=== PATIENT | male | born 1975 | race Caucasian/White ===

== ENCOUNTER 2020-03-17 03:25 | Emergency (ER) | payer OTHER, SELFPAY ==
[2020-03-17 03:34] VITALS: BP 120/76; BP 146/85; PULSE 126; PULSE 140; RESP 12; TEMP 36.9; O2SAT 95; O2SAT 98; BMI 33.4
--- NOTE | 2020-03-17 03:54 | ED_ITS ---
HPI - Overdose General Chief Complaint: Overdose Stated Complaint: overdose Time Seen by Provider: 03/17/20 03:53 Source: patient and EMS Mode of arrival: EMS History of Present Illness HPI Narrative: this is a 45-year-old male who is brought in by EMS and reportedly was found unresponsive with bystander administration of Narcan and rapid return to wakefulness without needing additional respiratory support. Patient currently denies any use other than cocaine and having drink a lot of alcohol throughout the day. He readily admits that he passes out because I am a drunk . Further reports by EMS states that patient had drug paraphernalia surrounding him. complaint: accidental overdose Related Data Allergies Allergy/AdvReac Type Severity Reaction Status Date / Time acetaminophen [From TYLENOL] Allergy Intermediate ULCERS Unverified 02/29/20 16:07 ibuprofen [From MOTRIN] Allergy Intermediate ULCER Unverified 02/29/20 16:07 aspirin [ASA] Allergy Unknown VOMITING Unverified 02/29/20 16:07 BLOOD Review of Systems Review of Systems: pertinent positives and negatives as stated in HPI 10 point review of systems is otherwise negative. [facility] Past Medical History Source: nursing notes reviewed Medical History Heart murmur Surgical History S/P TIPS (transjugular intrahepatic portosystemic shunt) Social History Social History Alcohol intake: current Alcohol intake frequency: 3 or more drinks per day Smoking Status: Never smoker Smoked in Last 30 Days: No Use of substances other than those prescribed or required for medical reasons: Yes Substance Use Type: Crack/Cocaine and Marijuana Advance Directives: No Advance Directives Information Provided: No Physical Exam Vital Signs and I&O and Narrative: Vital Signs and I&O: Vital Signs Temp 98.5 F 03/17/20 03:34 Pulse 124 H 03/17/20 03:58 Resp 12 03/17/20 03:34 BP 146/85 H 03/17/20 03:34 Pulse Ox 95 03/17/20 03:34 Intake & Output 03/16/20 03/16/20 03/17/20 06:59 18:59 06:59 Weight 99.79 kg Body Mass Index 33.4 VITAL SIGNS: Reviewed. GENERAL: Well developed, well nourished, in no acute distress. HEAD: Normocephalic/atraumatic, EYES: PERRLA, EOMI intact without pain, no nystagmus/pallor/icterus noted , there is noted a most this to the right orbital area EARS: Ext canals without abnormality, TMs non-bulging and non-erythematous NOSE: Nares patent bilateral OROPHARYNX: no oral lesions noted, posterior pharynx clear and non-erythematous without noted tonsillar enlargement/erythema/exudates NECK: Supple, no adenopathy LUNGS: Normal breath sounds. No adventitious sounds or accessory muscle use. SpO2<> CARDIOVASCULAR: Regular rate and rhythm without noted murmurs, no JVD or lower extremity edema. ABDOMEN: Soft, non-tender, non-distended with bowel sounds. No rigidity. No guarding. No palpable masses or hernias noted MUSCULOSKELETAL: No tenderness, deformities, or effusions noted on gross inspection. EXTREMITIES: No cyanosis, clubbing or edema. SKIN: Inspection of the skin reveals no rashes, ulcerations, jaundice, pallor, or petechiae. NEUROLOGIC: Alert and oriented x 4. Strength and sensation to light touch were grossly intact Course Course Hospital Course: This is a 45-year-old male with history and clinical presentation consistent with polysubstance use that includes both alcohol as well as cocaine. Patient denies any thoughts of suicide. Patient was observed for 2 hours and was tolerating p.o. intake without complications. Patient was re-evaluated and clinically cleared for discharge to home and states that he will do this through his mom. MDM - Overdose ECG Data Attestation: I personally reviewed and interpreted this ECG as follows: Interpretation: NSR, HR-121, no evidence of ischemia Discharge Plan Discharge Clinical Impression: Drug overdose Qualifiers: Encounter type: initial encounter Injury intent: accidental or unintentional Qualified Code(s): T50.901A - Poisoning by unspecified drugs, medicaments and biological substances, accidental (unintentional), initial encounter Patient Disposition: Home, Self-Care Instructions: Polysubstance Abuse (ED) Additional Instructions: The patient and/or family acknowledge understanding of results (as applicable), diagnosis, treatment plan, need for follow up, and symptoms that should prompt a return to the emergency room. Referrals: Physician,Unknown [Primary Care Provider] - 2 days ( polysubstance abuse)
[2020-03-17 03:58] VITALS: PULSE 124
--- NOTE | 2020-03-17 04:47 | PC.NURSE ---
PT RESTING IN BED SKIN PWD RESPIRATIONS EVEN UNLABORED NO DISTRESS NOTED. SINUS TACH ON MONITOR. VS STABLE OTHERWISE. AWAITING 2 HOURS POST NARCAN ADMINISTRATION FOR HOME. AWARE OF PLAN OF CARE.
--- NOTE | 2020-03-17 04:59 | PC.NURSE ---
AT [facility] AT BEDSIDE FOR [facility]. PT TO BE DC HOME.
[2020-03-17 05:00] VITALS: BP 127/83; PULSE 111; RESP 16; O2SAT 95
--- NOTE | 2020-03-17 16:54 | ECG_ITS ---
Test Reason : OVERDOSE Blood Pressure : / mmHG Vent. Rate : 121 BPM Atrial Rate : 121 BPM P-R Int : 160 ms QRS Dur : 082 ms QT Int : 324 ms P-R-T Axes : 042 015 038 degrees QTc Int : 460 ms Sinus tachycardia Otherwise normal ECG When compared with ECG of 20-JUL-2019 13:09, Nonspecific T wave abnormality now evident in Lateral leads Heart rate has increased Referred By: Leslie Mari Electronically Signed By:MARISA BROCK
== END 2020-03-17 05:27 | disposition home or self-care (01) ==
PROVIDERS: Emergency Provider Student in an Organized Health Care Education/Training Program
DX: T50.901A Poisoning by unspecified drugs, medicaments and biological substances, accidental (unintentional), initial encounter (principal); R40.4 Transient alteration of awareness; Y92.410 Unspecified street and highway as the place of occurrence of the external cause
CPT/HCPCS: 93005; 93010; 99283; 99284

== ENCOUNTER 2020-07-19 23:26 | Emergency (ER) | payer OTHER, SELFPAY ==
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
[2020-07-19 23:40] VITALS: BP 170/98; PULSE 110; RESP 18; TEMP 37.2; O2SAT 97; BMI 30.4
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
[2020-07-20 02:00] VITALS: BP 156/91; PULSE 95; RESP 16; TEMP 37.2; O2SAT 99
[2020-07-20 02:34] LABS: Basophils Percent Auto 0.5 % (0-2); Eosinophils Percent Auto 0.5 % (0-4); Hemoglobin 13.4 g/dl (14.0-18.0); Lymphocytes Absolute Auto 1.2 X10*3/uL (1.2-4.9); PLT CLUMP 1; Red Cell Distribution Width 17.2 % (11.0-16.0); SCAN SMEAR FLAG 1
[2020-07-20 02:36] LABS: Hematocrit 39.9 % (42-52); Imm Gran Abs Auto 0.02 X10*3/uL (0.00-0.03); Imm Gran Pct Auto 0.3 % (0.0-0.4); Lymphocytes Percent Auto 15.5 % (20-40); Mean Corpuscular HGB Conc 33.6 g/dl (31.0-36.0); Mean Corpuscular Hemoglobin 30.9 pg (27.0-33.0); Mean Corpuscular Volume 91.9 fL (80-98); Mean Platelet Volume 10.6 fL (9.4-12.4); Monocytes Absolute Auto 0.8 X10*3/uL (0.1-1.2); Monocytes Percent Auto 10.4 % (2-11); Neutrophils Absolute Auto 5.6 X10*3/uL (2.0-8.3); Neutrophils Percent Auto 72.8 % (45-73); Platelet Count 102 X10*3/uL (160-400); Red Blood Count 4.34 X10*6/uL (4.60-5.80); White Blood Count 7.7 X10*3/uL (4.8-10.8)
[2020-07-20 02:41] LABS: MANUAL DIFF FLAG NO
[2020-07-20 02:42] LABS: Ethanol 342 mg/dL
[2020-07-20 02:49] LABS: Alanine Aminotransferase 49 U/L (0-40); Albumin Level 4.1 g/dL (3.5-5.0); Alkaline Phosphatase 213 U/L (39-117); Anion Gap 17 (12-20); Aspartate Amino Transferase 132 U/L (5-37); Blood Urea Nitrogen 5 mg/dL (9-16); Calcium 8.6 mg/dL (8.4-10.2); Carbon Dioxide 26 mmol/L (22-29); Chloride 108 mmol/L (96-108); Creatinine Clr Calc Pharmacy 129.7; Estimated Glomerular Filt Rate > 60; Glucose Random 99 mg/dL (60-115); Potassium 3.8 mmol/L (3.3-5.1); Sodium 147 mmol/L (135-145); Total Protein 7.8 g/dL (6.5-8.0)
[2020-07-20 04:00] VITALS: BP 147/79; PULSE 78; RESP 18; O2SAT 96
== END 2020-07-20 07:00 | disposition home or self-care (01) ==
PROVIDERS: Physician Assistant; Emergency Provider Emergency Medicine
DX: S29.9XXA Unspecified injury of thorax, initial encounter (principal); R07.89 Other chest pain; G44.309 Post-traumatic headache, unspecified, not intractable; F10.129 Alcohol abuse with intoxication, unspecified; Y90.9 Presence of alcohol in blood, level not specified; W01.0XXA Fall on same level from slipping, tripping and stumbling without subsequent striking against object, initial encounter; Y93.9 Activity, unspecified; Y92.9 Unspecified place or not applicable; Y99.9 Unspecified external cause status; Z71.41 Alcohol abuse counseling and surveillance of alcoholic
CPT/HCPCS: 36415; 70450; 71110; 74176; 80048; 80076; 80320; 85025; 99284

== ENCOUNTER 2020-08-25 10:13 | Emergency (ER) | payer OTHER, SELFPAY ==
--- NOTE | ~2020-08-25 | CT_ITS ---
EXAMINATION: CT OF THE HEAD WITHOUT CONTRAST CT OF THE CERVICAL SPINE WITHOUT CONTRAST CLINICAL INFORMATION: Status post fall with head injury on with frontal headache. Pain. COMPARISON: CT scan of the head dated 07/19/2020. CT scan of the head and cervical spine dated 02/15/2017 TECHNIQUE: Contiguous axial imaging was performed from the skullbase to vertex without intravenous administration of contrast. Coronal reformations of the head were obtained. Contiguous axial imaging was then performed from the skull base down to the thoracic inlet. Coronal and sagittal reformations of the cervical spine were obtained. DLP: CT scan of the head: 714.42 mGy-cm. CT scan of the cervical spine: 373.54 mGy-cm. FINDINGS: CT scan of the head: There are bilateral subtle evolving subdural hygromas seen along the convexities of both cerebral hemispheres. Attenuation values are minimally over 20 Hounsfield units, higher than CSF density, and findings are new compared to prior study. No associated sulcal effacement or significant mass effect is seen. There is no evidence of acute intracranial hemorrhage or territorial infarction. No abnormal mass-effect or midline shift is seen. Clancy to white matter differentiation is well preserved. The ventricles are normal in size. There is no abnormal attenuation within the brain parenchyma. The osseous structures and soft tissues are normal. The mastoid air cells and visualized portions of the paranasal sinuses are well-aerated. CT scan of the cervical spine: There is minimal grade 1 anterolisthesis of C3 on C4 and retrolisthesis of C4 on C5, likely related to degenerative laxity. No acute malalignment noted. No evidence of acute fracture or dislocation. Craniocervical junction and atlantoaxial articulations are intact with mild degenerative spurring at the anterior atlantoaxial articulation seen. Prevertebral soft tissues are normal in thickness. There is moderate vertebral spondylosis and mild disc degeneration at the C6-7 level and there is mild facet arthropathy in the cervical spine at multiple levels. There are a few patchy groundglass opacities in the right lung apex, incompletely included, new compared to 02/15/2017. The included soft tissues of the neck and lung apices are otherwise unremarkable. CT/CT cervical spine wo con IMPRESSION: CT scan of the head: 1. Interval development of small bilateral evolving subdural hygromas along the convexities of both cerebral hemispheres. No associated significant sulcal effacement, mass effect or midline shift is seen. 2. No evidence of intracranial hemorrhage. CT scan of the cervical spine: 1. No acute cervical spine fracture. Scattered degenerative changes are seen as discussed above. 2. A few patchy groundglass opacities are seen in the right lung apex, incompletely included. Patient gives a history of prior COVID pneumonia and findings may be related to residual lung parenchymal changes. Close clinical correlation and follow-up as clinically appropriate is recommended. This critical result was discussed with HELEN Stephen 08/25/2020, 12:07 PM and it was ascertained that the content and urgency of this report was understood at the time of direct communication.
[2020-08-25 10:39] VITALS: BP 112/79; PULSE 110; RESP 16; TEMP 36.6; O2SAT 96; BMI 28.1
[2020-08-25] MEDS: traMADoL HCL 50 MG TABLET PO (11:01)
--- NOTE | 2020-08-25 11:01 | ED.HA ---
HPI - Headache General Chief Complaint: Headache Stated Complaint: HEADACHE, FALL 3 DAYS AGO Time Seen by Provider: 08/25/20 10:17 Source: patient Mode of arrival: ambulatory Limitations: no limitations History of Present Illness HPI Narrative: 45-year-old male who is legally blind with a past medical history of heart murmur, s/p TIPS, alcohol abuse/dependence, cirrhosis, substance abuse, chronic mental illness, depression and PTSD presenting to the ED with complaints of a frontal headache since after he had a mechanical fall in his house after he reports he mopped his floor and it was slippery and this was the reason why he fell. He reports that he fell backwards injuring his right posterior scalp and since then has been having a frontal headache reports he has been taking 200 mg of Motrin which is providing no symptomatic relief. Reports he cannot take Tylenol due to his history of cirrhosis. Reports that he drinks 2 large beers daily. His last drink was last night. Patient denies loss of consciousness or taking anticoagulation. Denies injury to any other areas or illicit drug usage. Denies any dizziness, , nausea/vomiting, chest pain, shortness of breath, paresthesias, palpitations, abdominal pain, diarrhea, constipation, hematuria or any other symptoms complaints or concerns at this time. MD elicited complaint: headache Pertinent past history: recent trauma Onset (ago): day(s) (Three days) Onset description: gradually and other (Started after he fell) Location: frontal Severity: moderate Quality & Timing: throbbing, constant and progressively worsening Exacerbating factors: none Relieving factors: nothing Context: recent head injury (After patient fell) Associated symptoms: none Treatments prior to arrival: ibuprofen (200 mg) Related Data Previous Rx's Medication Instructions Recorded tramadol 50 mg PO BID PRN #10 tab 08/25/20 Allergies Allergy/AdvReac Type Severity Reaction Status Date / Time acetaminophen [From TYLENOL] Allergy Intermediate ULCERS Verified 08/25/20 10:37 aspirin [ASA] Allergy Unknown VOMITING Verified 08/25/20 10:38 BLOOD Review of Systems Review of Systems: Constitutional : No changes in activity, No lethargy, No agitation, No increased fussiness ENT/Mouth : No Ear Pain, No Nasal discharge/drainage Eyes: No Eye Pain, No Swelling, No Redness, No Foreign Body, No Vision Changes Cardiovascular : No Chest Pain, No SOB Respiratory : No Cough Gastrointestinal : No Nausea, No Vomiting, No abdominal Pain Genitourinary : No Dysuria, No Urinary Frequency, No Urinary Incontinence, No Urgency, No Flank Pain Musculoskeletal : No joint pain, No neck stiffness, No back pain/injury Skin : No lacerations Neuro : + Headache, No unsteady gait, No Paresthesias, No Loss of Consciousness, No altered mental status, No dizziness Denies past medical history of HIV, coagulopathy, recent spinal/ epidural procedure, new medication, URI symptoms, close contacts with similar symptoms, tick bite, or known CO2 exposure. Yes all other systems are reviewed and are negative FOR[facility]LY [facility] Past Medical History Attestation statement: The following information was validated with the patient. Medical History Heart murmur Nasal fracture Surgical History S/P TIPS (transjugular intrahepatic portosystemic shunt) Social History Social History Alcohol intake: current Alcohol intake frequency: 3 or more drinks per day Smoking Status: Never smoker Use of substances other than those prescribed or required for medical reasons: No Substance Use Type: Crack/Cocaine and Marijuana Advance Directives: No Advance Directives Information Provided: No Physical Exam Vital Signs: Vital Signs: Last Vital Signs Temp 98 F 08/25/20 10:39 Pulse 78 08/25/20 12:30 Resp 18 08/25/20 12:30 BP 122/75 08/25/20 12:30 Pulse Ox 100 08/25/20 12:30 Body Mass Index 28.1 Vital signs have been reviewed as normal and appeared to be correct. Blood pressure normal. Heart rate tachycardic at 110. Respiration rate normal. Temperature normal. Oxygen saturation normal. Appearance: Alert. Oriented X3. No acute distress. Head: Normal external exam. Normocephalic. Atraumatic. Able to rotate head bilaterally. Eyes: PERRLA. EOMI. No nystagmus noted. Conjunctiva and sclera normal. Eyelids normal. Corneal reflex normal. ENT: EAC normal. TM's Normal. Hearing normal. Pharynx normal. Uvula midline. tongue midline. Moist mucous membranes. No trismus noted. No drooling noted. No muffled voice noted. Neck: Normal inspection. Neck supple. FROM. No adenopathy. Thyroid Normal. No meningeal signs. No neck mass noted. CVS: Normal heart rate and rhythm. Heart sound normal. No murmurs noted. Pulses normal throughout. Respiratory: No respiratory distress. Painless inspiration. Breath sounds normal. No wheezes/rales/rhonchi noted. Chest nontender. No accessory muscle usage noted or decreased air movement noted. Back: Full range of motion noted. Skin: Skin warm and dry. Normal skin color. Normal skin turgor. No rashes/lesions/lacerations noted. Extremities: Extremities exhibit normal range of motion. Extremities nontender. Able to shrug shoulders bilaterally and keep up against resistance. Neuro: Oriented X 3. No motor deficit. No sensory deficit. Reflexes normal. Moving all extremities. No focal motor deficits. Cranial nerves II-XI intact bilaterally. Facial strength normal. Normal cognition. Speech normal. Gait normal. Strength 5/5 throughout. No pronator drift. No tremor noted. No fasciculations noted. Muscle tone normal throughout. No asterixis noted. Ddngli-ku-[id number] test normal. Heel to tate test normal. Tandem gait normal. Does not sway with eyes open. Romberg test negative. Rapid alternating movement upper extremity normal. Rapid alternating movement lower extremity normal. Hand drop from overhead-Mrs. face. No rigidity noted. NIHSS score 0. Course Course Course Narrative: 10:40am - 45-year-old male who is legally blind with a past medical history of heart murmur, s/p TIPS, alcohol abuse/dependence, cirrhosis, substance abuse, chronic mental illness, depression and PTSD presenting to the ED with complaints of a frontal headache since after he had a mechanical fall in his house with head injury no LOC. not on any anticoagulation. - on exam patient is alert and oriented x3. Not in any acute distress. Mildly tachycardic at 110 otherwise all other vitals are within normal limits. No focal neuro deficits noted. NIH SS score 0. Non disabling symptoms. No tPA indicated in patients symptoms started on after he had a mechanical fall. Lungs clear to auscultation. CV RRR. Abdomen is soft and nontender. - concern for SAH vs Concussion - Plan: Labs, CT scan of brain/cervical spine provided 50 mg of tramadol then re-evaluate. Reevaluation(s) Reevaluation #1: - patient white blood cell count at 4000 - mild anemia - elevation in AST/alkaline phosphate which is improved when compared to prior on 07/20/2020 - ETOH level 304 - CT scan of brain revealed 1. Interval development of small bilateral evolving subdural hygromas along the convexities of both cerebral hemispheres. No associated significant sulcal effacement, mass effect or midline shift is seen. 2. No evidence of intracranial hemorrhage. - CT scan cervical spine revealed chronic changes no acute processes noted - therefore I consulted with Dr. Quezada who reported that the patient does not need evacuation at this time although to specifically tell the patient that if he develops any worsening symptoms the patient will have to come back to emergency department immediately and that he will need a repeat CT scan in 2-3 weeks - therefore explained this to the patient and he understood I gave him a copy of his report he reported that he will follow up with his PCP and his neurologist as he has a PCP appointment on 08/29/2020 therefore at this time will discharge with symptomatic treatment with tramadol as patient reports this improved his headache and instructions to return if any new or worsening symptoms and patient understood this. He has a sober ride which are his parents. Time: 13:14 [facility] - Headache Differential Diagnosis Differential diagnosis: Likely subarachnoid hemorrhage, headache and postconcussion syndrome Medical Records Attestation: I reviewed the patient's medical records. Lab Data Attestation: I reviewed the patient's lab results. Result diagrams: 08/25/20 11:55 08/25/20 11:52 Labs: Lab Results 08/25/20 08/25/20 08/25/20 Range/Units 11:52 11:52 11:52 WBC (4.8-10.8) X10*3/uL RBC (4.60-5.80) X10*6/uL Hgb (14.0-18.0) g/dl Hct (42-52) % MCV (80-98) fL MCH (27.0-33.0) pg MCHC (31.0-36.0) g/dl RDW (11.0-16.0) % Plt Count (160-400) X10*3/uL MPV (9.4-12.4) fL Immature Gran % (Auto) (0.0-0.4) % Neut % (Auto) (45-73) % Lymph % (Auto) (20-40) % [place] % (Auto) (2-11) % Eos % (Auto) (0-4) % Baso % (Auto) (0-2) % Lymph # (Auto) (1.2-4.9) X10*3/uL [place] # (Auto) (0.1-1.2) X10*3/uL Eos # (Auto) (0.0-0.4) X10*3/uL Baso # (Auto) (0.0-0.2) X10*3/uL Abs Immat Gran (auto) (0.00-0.03) X10*3/uL Absolute Neuts (auto) (2.0-8.3) X10*3/uL Absolute Nucleated RBC (0.0-0.012) X10*3/uL Nucleated RBC % (auto) (0.0-0.2) /100WBC Hold Purple Top SEE NOTE PT 14.6 H (10.8-13.0) SEC INR 1.2 H (0.9-1.1) Sodium 145 (135-145) mmol/L Potassium 4.2 (3.3-5.1) mmol/L Chloride 111 H (96-108) mmol/L Carbon Dioxide 26 (22-29) mmol/L Anion Gap 12 (12-20) BUN 4 L (9-16) mg/dL Creatinine 0.74 (0.5-1.4) mg/dL Estim Creat Clear Calc 130.2 Estimated GFR > 60 Random Glucose 97 (60-115) mg/dL Calcium 7.9 L D (8.4-10.2) mg/dL Magnesium 2.1 (1.6-2.6) mg/dL Total Bilirubin 0.9 (0.0-1.0) mg/dL Direct Bilirubin 0.5 (0.0-0.5) mg/dL AST 101 H (5-37) U/L ALT 34 (0-40) U/L Alkaline Phosphatase 214 H (39-117) U/L Total Protein 6.4 L (6.5-8.0) g/dL Albumin 3.2 L D (3.5-5.0) g/dL Ethyl Alcohol mg/dL 08/25/20 08/25/20 Range/Units 11:52 11:55 WBC 4.1 L (4.8-10.8) X10*3/uL RBC 3.93 L (4.60-5.80) X10*6/uL Hgb 11.9 L (14.0-18.0) g/dl Hct 37.0 L (42-52) % MCV 94.1 (80-98) fL MCH 30.3 (27.0-33.0) pg MCHC 32.2 (31.0-36.0) g/dl RDW 15.7 (11.0-16.0) % Plt Count 101 L (160-400) X10*3/uL MPV 10.6 (9.4-12.4) fL Immature Gran % (Auto) 0.2 (0.0-0.4) % Neut % (Auto) 47.6 (45-73) % Lymph % (Auto) 35.9 (20-40) % [place] % (Auto) 12.2 H (2-11) % Eos % (Auto) 3.4 (0-4) % Baso % (Auto) 0.7 (0-2) % Lymph # (Auto) 1.5 (1.2-4.9) X10*3/uL [place] # (Auto) 0.5 (0.1-1.2) X10*3/uL Eos # (Auto) 0.1 (0.0-0.4) X10*3/uL Baso # (Auto) 0.0 (0.0-0.2) X10*3/uL Abs Immat Gran (auto) 0.01 (0.00-0.03) X10*3/uL Absolute Neuts (auto) 2.0 (2.0-8.3) X10*3/uL Absolute Nucleated RBC 0.000 (0.0-0.012) X10*3/uL Nucleated RBC % (auto) 0.0 (0.0-0.2) /100WBC Hold Purple Top PT (10.8-13.0) SEC INR (0.9-1.1) Sodium (135-145) mmol/L Potassium (3.3-5.1) mmol/L Chloride (96-108) mmol/L Carbon Dioxide (22-29) mmol/L Anion Gap (12-20) BUN (9-16) mg/dL Creatinine (0.5-1.4) mg/dL Estim Creat Clear Calc Estimated GFR Random Glucose (60-115) mg/dL Calcium (8.4-10.2) mg/dL Magnesium (1.6-2.6) mg/dL Total Bilirubin (0.0-1.0) mg/dL Direct Bilirubin (0.0-0.5) mg/dL AST (5-37) U/L ALT (0-40) U/L Alkaline Phosphatase (39-117) U/L Total Protein (6.5-8.0) g/dL Albumin (3.5-5.0) g/dL Ethyl Alcohol 304 H* mg/dL Imaging Data CT scan of brain/cervical spine: Attestation: I personally reviewed and interpreted this imaging study as follows: Radiologist's impression: FINDINGS: CT scan of the head: There are bilateral subtle evolving subdural hygromas seen along the convexities of both cerebral hemispheres. Attenuation values are minimally over 20 Hounsfield units, higher than CSF density, and findings are new compared to prior study. No associated sulcal effacement or significant mass effect is seen. There is no evidence of acute intracranial hemorrhage or territorial infarction. No abnormal mass-effect or midline shift is seen. Clancy to white matter differentiation is well preserved. The ventricles are normal in size. There is no abnormal attenuation within the brain parenchyma. The osseous structures and soft tissues are normal. The mastoid air cells and visualized portions of the paranasal sinuses are well-aerated. CT scan of the cervical spine: There is minimal grade 1 anterolisthesis of C3 on C4 and retrolisthesis of C4 on C5, likely related to degenerative laxity. No acute malalignment noted. No evidence of acute fracture or dislocation. Craniocervical junction and atlantoaxial articulations are intact with mild degenerative spurring at the anterior atlantoaxial articulation seen. Prevertebral soft tissues are normal in thickness. There is moderate vertebral spondylosis and mild disc degeneration at the C6-7 level and there is mild facet arthropathy in the cervical spine at multiple levels. There are a few patchy groundglass opacities in the right lung apex, incompletely included, new compared to 02/15/2017. The included soft tissues of the neck and lung apices are otherwise unremarkable. CT/CT head/brain wo con IMPRESSION: CT scan of the head: 1. Interval development of small bilateral evolving subdural hygromas along the convexities of both cerebral hemispheres. No associated significant sulcal effacement, mass effect or midline shift is seen. 2. No evidence of intracranial hemorrhage. CT scan of the cervical spine: 1. No acute cervical spine fracture. Scattered degenerative changes are seen as discussed above. 2. A few patchy groundglass opacities are seen in the right lung apex, incompletely included. Patient gives a history of prior COVID pneumonia and findings may be related to residual lung parenchymal changes. Close clinical correlation and follow-up as clinically appropriate is recommended. This critical result was discussed with HELEN Stephen 08/25/2020, 12:07 PM and it was ascertained that the content and urgency of this report was understood at the time of direct communication. Critical Care Time Critical Care Time Critical Care Time: Yes Total Critical Care Time: 60 Attestation: I personally attest to this time spent taking care of the patient Discharge Plan Discharge Clinical Impression: Fall, Subdural hygroma Patient Disposition: Home, Self-Care Instructions: Fall Prevention (ED) Additional Instructions: You had an abnormal CT scan which revealed subdural hygromas which is a collection of CSF fluid from your spine into the brain I consulted with neurology and he reported that no one will evacuation you at this time due to they are small although if you develop any worsening or new symptoms you have to return to the emergency department immediately. You also need a repeat CT scan in 2-3 weeks. Please bring the CT scan results see her primary care provider as scheduled on 08/29/2020 and your neurologist as the reported you have. Again return if any new/persistent or worsening symptoms. IMPRESSION: CT scan of the head: 1. Interval development of small bilateral evolving subdural hygromas along the convexities of both cerebral hemispheres. No associated significant sulcal effacement, mass effect or midline shift is seen. 2. No evidence of intracranial hemorrhage. CT scan of the cervical spine: 1. No acute cervical spine fracture. Scattered degenerative changes are seen as discussed above. 2. A few patchy groundglass opacities are seen in the right lung apex, incompletely included. Patient gives a history of prior COVID pneumonia and findings may be related to residual lung parenchymal changes. Close clinical correlation and follow-up as clinically appropriate is recommended. Prescriptions: New tramadol 50 mg tablet 50 mg PO BID PRN (Reason: pain) Qty: 10 RF: 0 Referrals: Kevyn Quezada MD [Physician] - 2 days (You need a repeat CT scan in 2-[address] scan see above under discharge paperwork) Physician,Unknown [Primary Care Provider] - 2 days (Your PCP and neurologist) Print Language: [place]
[2020-08-25 11:10] LABS: MANUAL DIFF FLAG NO
[2020-08-25 12:03] LABS: Basophils Percent Auto 0.7 % (0-2); Eosinophils Absolute Auto 0.1 X10*3/uL (0.0-0.4); Eosinophils Percent Auto 3.4 % (0-4); Hemoglobin 11.9 g/dl (14.0-18.0); Imm Gran Abs Auto 0.01 X10*3/uL (0.00-0.03); Imm Gran Pct Auto 0.2 % (0.0-0.4); Lymphocytes Absolute Auto 1.5 X10*3/uL (1.2-4.9); Lymphocytes Percent Auto 35.9 % (20-40); Mean Corpuscular HGB Conc 32.2 g/dl (31.0-36.0); Mean Corpuscular Hemoglobin 30.3 pg (27.0-33.0); Mean Corpuscular Volume 94.1 fL (80-98); Mean Platelet Volume 10.6 fL (9.4-12.4); Monocytes Absolute Auto 0.5 X10*3/uL (0.1-1.2); Monocytes Percent Auto 12.2 % (2-11); Neutrophils Percent Auto 47.6 % (45-73); Platelet Count 101 X10*3/uL (160-400); Red Blood Count 3.93 X10*6/uL (4.60-5.80); Red Cell Distribution Width 15.7 % (11.0-16.0); White Blood Count 4.1 X10*3/uL (4.8-10.8)
[2020-08-25 12:09] LABS: INTERNATIONAL NORM RATIO 1.2 (0.9-1.1); Prothrombin Time 14.6 SEC (10.8-13.0)
[2020-08-25 12:30] VITALS: BP 122/75; PULSE 78; RESP 18; O2SAT 100
[2020-08-25 12:46] LABS: Ethanol 304 mg/dL
[2020-08-25 13:05] LABS: Alanine Aminotransferase 34 U/L (0-40); Albumin Level 3.2 g/dL (3.5-5.0); Alkaline Phosphatase 214 U/L (39-117); Anion Gap 12 (12-20); Aspartate Amino Transferase 101 U/L (5-37); Bilirubin Direct 0.5 mg/dL (0.0-0.5); Bilirubin Total 0.9 mg/dL (0.0-1.0); Blood Urea Nitrogen 4 mg/dL (9-16); Calcium 7.9 mg/dL (8.4-10.2); Carbon Dioxide 26 mmol/L (22-29); Chloride 111 mmol/L (96-108); Creatinine Clr Calc Pharmacy 130.2; Estimated Glomerular Filt Rate > 60; Glucose Random 97 mg/dL (60-115); Magnesium 2.1 mg/dL (1.6-2.6); Potassium 4.2 mmol/L (3.3-5.1); Sodium 145 mmol/L (135-145); Total Protein 6.4 g/dL (6.5-8.0)
--- NOTE | 2020-08-25 13:08 | PC.NURSE ---
OOB frequently. states headache is improved. no neuro deficities noted. neuro is on phone with PA at this time. this rn has spent extensive time convincing patient stay untill neuro is contacted.
== END 2020-08-25 13:55 | disposition home or self-care (01) ==
PROVIDERS: Physician Assistant Medical; Emergency Provider Emergency Medicine; PCP Pediatrics
DX: G96.08 Other cranial cerebrospinal fluid leak (principal); R51.9 Headache, unspecified; S09.90XS Unspecified injury of head, sequela; W01.198S Fall on same level from slipping, tripping and stumbling with subsequent striking against other object, sequela; F10.220 Alcohol dependence with intoxication, uncomplicated; Y90.8 Blood alcohol level of 240 mg/100 ml or more; F12.90 Cannabis use, unspecified, uncomplicated; F19.10 Other psychoactive substance abuse, uncomplicated; K74.60 Unspecified cirrhosis of liver; F43.10 Post-traumatic stress disorder, unspecified; F32.9 Major depressive disorder, single episode, unspecified; R01.1 Cardiac murmur, unspecified; H54.8 Legal blindness, as defined in USA; Z95.828 Presence of other vascular implants and grafts; Z86.16 Personal history of COVID-19
CPT/HCPCS: 36415; 70450; 72125; 80048; 80076; 80320; 83735; 85025; 85610; 99284; 99291

== ENCOUNTER 2021-03-28 02:18 | Emergency (ER) | payer OTHER, SELFPAY ==
--- NOTE | 2021-03-28 | ECG_ITS ---
Test Reason : CHEST PAIN Blood Pressure : / mmHG Vent. Rate : 109 BPM Atrial Rate : 109 BPM P-R Int : 164 ms QRS Dur : 080 ms QT Int : 362 ms P-R-T Axes : 037 011 010 degrees QTc Int : 487 ms Sinus tachycardia Otherwise normal ECG When compared with ECG of 17-MAR-2020 03:37, No significant change was found Referred By: Leslie Mari Electronically Signed By:JOLENE SMITH MD
--- NOTE | ~2021-03-28 | XR_ITS ---
EXAMINATION: XR CHEST CLINICAL INFORMATION: Chest pain COMPARISON: 07/19/2020 TECHNIQUE: Frontal view of the chest was obtained. FINDINGS: Normal symmetric lung volumes. No parenchymal consolidation. No pleural effusion. No pneumothorax. Cardiomediastinal silhouette and pulmonary vascularity are within normal limits. No acute osseous abnormalities. Multiple bilateral healed rib fractures. XR/XR chest 1V IMPRESSION: No acute findings.
[2021-03-28 02:25] VITALS: BP 147/93; PULSE 114; RESP 18; TEMP 37; O2SAT 97; BMI 27.6
[2021-03-28 02:33] VITALS: PULSE 111
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
[2021-03-28 03:29] LABS: MANUAL DIFF FLAG NO
[2021-03-28 03:31] LABS: Basophils Absolute Auto 0.1 X10*3/uL (0.0-0.2); Basophils Percent Auto 1.3 % (0-2); Eosinophils Absolute Auto 0.2 X10*3/uL (0.0-0.4); Eosinophils Percent Auto 3.6 % (0-4); Hematocrit 32.5 % (42-52); Hemoglobin 10.8 g/dl (14.0-18.0); Imm Gran Abs Auto 0.01 X10*3/uL (0.00-0.03); Imm Gran Pct Auto 0.2 % (0.0-0.4); Lymphocytes Absolute Auto 2.6 X10*3/uL (1.2-4.9); Lymphocytes Percent Auto 55.2 % (20-40); Mean Corpuscular HGB Conc 33.2 g/dl (31.0-36.0); Mean Corpuscular Hemoglobin 29.9 pg (27.0-33.0); Mean Platelet Volume 10.3 fL (9.4-12.4); Monocytes Absolute Auto 0.7 X10*3/uL (0.1-1.2); Monocytes Percent Auto 14.6 % (2-11); Neutrophils Absolute Auto 1.2 X10*3/uL (2.0-8.3); Neutrophils Percent Auto 25.1 % (45-73); Red Blood Count 3.61 X10*6/uL (4.60-5.80); Red Cell Distribution Width 17.7 % (11.0-16.0); White Blood Count 4.8 X10*3/uL (4.8-10.8)
[2021-03-28 03:40] LABS: Platelet Count 86 X10*3/uL (160-400)
[2021-03-28 03:41] LABS: Ethanol 259 mg/dL
[2021-03-28 03:51] LABS: Troponin-I High Sensitivity < 3.5 ng/L (<3.5-35.0)
[2021-03-28 03:59] LABS: Alanine Aminotransferase 41 U/L (0-40); Albumin Level 2.9 g/dL (3.5-5.0); Alkaline Phosphatase 187 U/L (39-117); Anion Gap 11 (12-20); Aspartate Amino Transferase 81 U/L (5-37); Bilirubin Total 1.5 mg/dL (0.0-1.0); Blood Urea Nitrogen 6 mg/dL (9-16); Calcium 7.9 mg/dL (8.4-10.2); Carbon Dioxide 21 mmol/L (22-29); Chloride 117 mmol/L (96-108); Creatinine Clr Calc Pharmacy 117.3; Estimated Glomerular Filt Rate > 60; Glucose Random 93 mg/dL (60-115); Lipase 122 U/L (8-78); Potassium 3.6 mmol/L (3.3-5.1); Sodium 145 mmol/L (135-145); Total Protein 6.2 g/dL (6.5-8.0)
[2021-03-28 05:14] VITALS: BP 137/80; PULSE 93; RESP 16; O2SAT 99
[2021-03-28] MEDS: 0.9 % Sodium Chloride 1,000 ML 999 ML IV (05:14)
[2021-03-28 06:42] LABS: Troponin-I High Sensitivity < 3.5 ng/L (<3.5-35.0)
[2021-03-28 07:32] VITALS: BP 133/82; PULSE 81; RESP 16; TEMP 36.6; O2SAT 99
== END 2021-03-28 07:57 | disposition home or self-care (01) ==
PROVIDERS: Emergency Provider Student in an Organized Health Care Education/Training Program
DX: K85.90 Acute pancreatitis without necrosis or infection, unspecified (principal); R07.9 Chest pain, unspecified; F10.229 Alcohol dependence with intoxication, unspecified; Y90.7 Blood alcohol level of 200-239 mg/100 ml; F12.90 Cannabis use, unspecified, uncomplicated; F14.90 Cocaine use, unspecified, uncomplicated; Z71.41 Alcohol abuse counseling and surveillance of alcoholic; Z79.899 Other long term (current) drug therapy
CPT/HCPCS: 36415; 71045; 80053; 82077; 83690; 84484; 85025; 93005; 96360; 99284

== ENCOUNTER 2021-05-06 04:18 | Emergency (ER) | payer OTHER, SELFPAY ==
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
[2021-05-06 04:35] VITALS: BP 117/67; PULSE 94; RESP 18; TEMP 36.7; O2SAT 96; BMI 29.5
[2021-05-06 04:39] VITALS: BP 117/67; PULSE 94; RESP 18; TEMP 36.7; O2SAT 96
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
[2021-05-06] MEDS: oxyCODONE HCl Immed Release 5 MG TABLET PO (05:55)
[2021-05-06 06:08] VITALS: BP 128/67; PULSE 104; RESP 16; TEMP 36.8; O2SAT 96
== END 2021-05-06 07:15 | disposition home or self-care (01) ==
PROVIDERS: Emergency Provider Emergency Medicine
DX: S30.0XXA Contusion of lower back and pelvis, initial encounter (principal); V43.52XA Car driver injured in collision with other type car in traffic accident, initial encounter; Y93.9 Activity, unspecified; Y92.410 Unspecified street and highway as the place of occurrence of the external cause; Y99.9 Unspecified external cause status; Z79.899 Other long term (current) drug therapy
CPT/HCPCS: 72100; 99283; 99284

== ENCOUNTER 2021-10-03 20:50 | Emergency (ER) | payer OTHER, SELFPAY ==
[2021-10-03 20:55] VITALS: BP 180/80; PULSE 130; O2SAT 98
[2021-10-03 21:07] VITALS: BP 139/79; PULSE 115; RESP 20; O2SAT 100; BMI 23.6
--- NOTE | 2021-10-03 21:21 | PC.NURSE ---
Pt agreeable to changeover with information technology intern. information technology intern to obtain labs and UA.
--- NOTE | 2021-10-03 21:31 | ED.OVERDOSE ---
HPI - Overdose General Chief Complaint: Overdose Stated Complaint: OVERDOSE Time Seen by Provider: 10/03/21 21:31 Source: patient Mode of arrival: EMS Limitations: no limitations History of Present Illness HPI Narrative: Patient legally blind usually snorts crack last night he used 2 bags of heroin given to him by his friend patient been very sleepy difficult to awake so PD came and gave him 4 mg of Narcan woke up saturating 100% at room air denies any suicidal ideation or depression Related Data Previous Rx's Medication Instructions Recorded tramadol 50 mg tablet 50 mg PO BID PRN #10 tab 08/25/20 Allergies Allergy/AdvReac Type Severity Reaction Status Date / Time acetaminophen [From TYLENOL] Allergy Intermediate ULCERS Verified 10/03/21 21:11 aspirin [ASA] Allergy Unknown VOMITING Verified 10/03/21 21:11 BLOOD Review of Systems Review of Systems: Yes all other systems are reviewed and are negative [facility] Past Medical History Medical History Heart murmur Nasal fracture Surgical History S/P TIPS (transjugular intrahepatic portosystemic shunt) Social History Social History Alcohol intake: current Alcohol intake frequency: 3 or more drinks per day Substance Use Type: Crack/Cocaine and Marijuana Advance Directives: No Advance Directives Information Provided: No Physical Exam Vital Signs: Vital Signs: Last Vital Signs Pulse 115 H 10/03/21 21:07 Resp 20 10/03/21 21:07 BP 139/79 10/03/21 21:07 Pulse Ox 100 10/03/21 21:07 BMI result Body Mass Index 23.6 Appearance: Alert. Oriented X3. No acute distress. Eyes: Legally blind ENT: Pharynx normal. Oral Mucosa moist Neck: Normal inspection. Neck supple. CVS: Normal heart rate and rhythm. Pulses normal. Respiratory: No respiratory distress. Equal air entry bilateral, no wheezing/rales/rhonchi Abdomen: Soft and nontender. Bowel sounds are present, Skin: Skin warm and dry. Normal skin color. Normal skin turgor. Extremities: No lower extremity edema. No calf tenderness Neuro: Oriented X 3. No motor deficit. MDM - Overdose MDM Narrative Medical decision making narrative: Patient history of substance abuse was COVID positive on 09/23 today also she has positive was sleepy at home after taking fentanyl last night responded to Narcan at this time patient is saturating 100% will discharge patient home Lab Data Attestation: I reviewed the patient's lab results. Result diagrams: 10/03/21 21:38 10/03/21 21:38 Labs: Lab Results 10/03/21 10/03/21 10/03/21 Range/Units 21:38 21:38 21:38 WBC 5.5 (4.8-10.8) X10*3/uL RBC 2.80 L (4.60-5.80) X10*6/uL Hgb 8.8 L (14.0-18.0) g/dl Hct 27.0 L (42.0-52.0) % MCV 96.4 (80.0-98.0) fL MCH 31.4 (27.0-33.0) pg MCHC 32.6 (31.0-36.0) g/dl RDW 16.4 H (11.0-16.0) % Plt Count 95 L (160-400) X10*3/uL MPV 11.4 (9.4-12.4) fL Immature Gran % (Auto) 0.7 H (0.0-0.4) % Neut % (Auto) 60.1 (45-73) % Lymph % (Auto) 21.6 (20-40) % Hanson % (Auto) 14.3 H (2-11) % Eos % (Auto) 2.9 (0-4) % Baso % (Auto) 0.4 (0-2) % Lymph # (Auto) 1.2 (1.2-4.9) X10*3/uL Hanson # (Auto) 0.8 (0.1-1.2) X10*3/uL Eos # (Auto) 0.2 (0.0-0.4) X10*3/uL Baso # (Auto) 0.0 (0.0-0.2) X10*3/uL Abs Immat Gran (auto) 0.04 H (0.00-0.03) X10*3/uL Absolute Neuts (auto) 3.3 (2.0-8.3) x10*3/uL Absolute Nucleated RBC 0.000 (0.0-0.012) X10*3/uL Nucleated RBC % (auto) 0.0 (0.0-0.2) /100WBC Sodium 137 (135-145) mmol/L Potassium 3.7 (3.3-5.1) mmol/L Chloride 106 (96-108) mmol/L Carbon Dioxide 23 (22-29) mmol/L Anion Gap 12 (12-20) BUN 13 (9-16) mg/dL Creatinine 0.76 (0.5-1.4) mg/dL Estim Creat Clear Calc 118.8 Estimated GFR > 60 Random Glucose 88 (60-115) mg/dL Calcium 8.1 L (8.4-10.2) mg/dL Total Bilirubin 1.8 H (0.0-1.0) mg/dL AST 92 H (5-37) U/L ALT 39 (0-40) U/L Alkaline Phosphatase 127 H D (39-117) U/L Total Protein 6.2 L (6.5-8.0) g/dL Albumin 2.7 L (3.5-5.0) g/dL Urine Opiates Screen (Not Detect) Urine Fentanyl Screen (Not Detect) Ur Barbiturates Screen (Not Detect) Ur Phencyclidine Scrn (Not Detect) Ur Amphetamines Screen (Not Detect) U Benzodiazepines Scrn (Not Detect) Urine Cocaine Screen (Not Detect) U Marijuana (THC) Screen (Not Detect) Ethyl Alcohol mg/dL COVID-19 ([facility]) Positive A (Negative) COVID-19 Clin Com See Note 10/03/21 10/03/21 Range/Units 21:38 21:38 WBC (4.8-10.8) X10*3/uL RBC (4.60-5.80) X10*6/uL Hgb (14.0-18.0) g/dl Hct (42.0-52.0) % MCV (80.0-98.0) fL MCH (27.0-33.0) pg MCHC (31.0-36.0) g/dl RDW (11.0-16.0) % Plt Count (160-400) X10*3/uL MPV (9.4-12.4) fL Immature Gran % (Auto) (0.0-0.4) % Neut % (Auto) (45-73) % Lymph % (Auto) (20-40) % Hanson % (Auto) (2-11) % Eos % (Auto) (0-4) % Baso % (Auto) (0-2) % Lymph # (Auto) (1.2-4.9) X10*3/uL Hanson # (Auto) (0.1-1.2) X10*3/uL Eos # (Auto) (0.0-0.4) X10*3/uL Baso # (Auto) (0.0-0.2) X10*3/uL Abs Immat Gran (auto) (0.00-0.03) X10*3/uL Absolute Neuts (auto) (2.0-8.3) x10*3/uL Absolute Nucleated RBC (0.0-0.012) X10*3/uL Nucleated RBC % (auto) (0.0-0.2) /100WBC Sodium (135-145) mmol/L Potassium (3.3-5.1) mmol/L Chloride (96-108) mmol/L Carbon Dioxide (22-29) mmol/L Anion Gap (12-20) BUN (9-16) mg/dL Creatinine (0.5-1.4) mg/dL Estim Creat Clear Calc Estimated GFR Random Glucose (60-115) mg/dL Calcium (8.4-10.2) mg/dL Total Bilirubin (0.0-1.0) mg/dL AST (5-37) U/L ALT (0-40) U/L Alkaline Phosphatase (39-117) U/L Total Protein (6.5-8.0) g/dL Albumin (3.5-5.0) g/dL Urine Opiates Screen POSITIVE H (Not Detect) Urine Fentanyl Screen POSITIVE H (Not Detect) Ur Barbiturates Screen POSITIVE H (Not Detect) Ur Phencyclidine Scrn Not Detected (Not Detect) Ur Amphetamines Screen Not Detected (Not Detect) U Benzodiazepines Scrn Not Detected (Not Detect) Urine Cocaine Screen POSITIVE H (Not Detect) U Marijuana (THC) Screen Not Detected (Not Detect) Ethyl Alcohol 10 mg/dL COVID-19 ([facility]) (Negative) COVID-19 Clin Com Discharge Plan Discharge Clinical Impression: Accidental drug ingestion, Poisoning by opiate or related narcotic Patient Disposition: Home, Self-Care Instructions: Adult Overdose (ED), Opioid Use Disorder (ED) Additional Instructions: Follow up detox Do not use drugs Prescriptions: No Action tramadol 50 mg tablet 50 mg PO BID PRN (Reason: pain) Qty: 10 0RF
[2021-10-03 21:43] LABS: MANUAL DIFF FLAG NO
[2021-10-03 21:46] LABS: Basophils Percent Auto 0.4 % (0-2); Eosinophils Absolute Auto 0.2 X10*3/uL (0.0-0.4); Eosinophils Percent Auto 2.9 % (0-4); Hemoglobin 8.8 g/dl (14.0-18.0); Imm Gran Abs Auto 0.04 X10*3/uL (0.00-0.03); Imm Gran Pct Auto 0.7 % (0.0-0.4); Lymphocytes Absolute Auto 1.2 X10*3/uL (1.2-4.9); Lymphocytes Percent Auto 21.6 % (20-40); Mean Corpuscular HGB Conc 32.6 g/dl (31.0-36.0); Mean Corpuscular Hemoglobin 31.4 pg (27.0-33.0); Mean Corpuscular Volume 96.4 fL (80.0-98.0); Mean Platelet Volume 11.4 fL (9.4-12.4); Monocytes Absolute Auto 0.8 X10*3/uL (0.1-1.2); Monocytes Percent Auto 14.3 % (2-11); Neutrophils Absolute Auto 3.3 x10*3/uL (2.0-8.3); Neutrophils Percent Auto 60.1 % (45-73); Red Cell Distribution Width 16.4 % (11.0-16.0); White Blood Count 5.5 X10*3/uL (4.8-10.8)
[2021-10-03 21:54] LABS: COVID-19 Test Positive (Negative)
[2021-10-03 21:55] LABS: Ethanol 10 mg/dL
[2021-10-03 22:00] LABS: Alanine Aminotransferase 39 U/L (0-40); Albumin Level 2.7 g/dL (3.5-5.0); Alkaline Phosphatase 127 U/L (39-117); Anion Gap 12 (12-20); Aspartate Amino Transferase 92 U/L (5-37); Bilirubin Total 1.8 mg/dL (0.0-1.0); Blood Urea Nitrogen 13 mg/dL (9-16); Calcium 8.1 mg/dL (8.4-10.2); Carbon Dioxide 23 mmol/L (22-29); Chloride 106 mmol/L (96-108); Creatinine Clr Calc Pharmacy 118.8; Estimated Glomerular Filt Rate > 60; Glucose Random 88 mg/dL (60-115); Potassium 3.7 mmol/L (3.3-5.1); Sodium 137 mmol/L (135-145); Total Protein 6.2 g/dL (6.5-8.0)
[2021-10-03 22:01] LABS: Amphetamine Screen Urine Not Detected (Not Detect); Barbiturates, Urine POSITIVE (Not Detect); Benzodiazepines Screen Urine Not Detected (Not Detect); Cannabinoid Screen Urine Not Detected (Not Detect); Cocaine Screen Urine POSITIVE (Not Detect); Fentanyl, urine POSITIVE (Not Detect); Opiate Screen Urine POSITIVE (Not Detect); Phencyclidine Screen Urine Not Detected (Not Detect); Platelet Count 95 X10*3/uL (160-400)
--- NOTE | 2021-10-03 22:25 | MHC.CARE ---
Pt not interested in THIERRY quijano at this time. He reports he lives alone but will be going to his parents house and being there is like being in an sober house . Pt shares that he relapsed and is not interested in services but would like to go home to his parents house as he also has his medications there. He reports that he has a social work nurse and well connected.
== END 2021-10-03 23:23 | disposition home or self-care (01) ==
PROVIDERS: Emergency Provider Internal Medicine
DX: T40.1X1A Poisoning by heroin, accidental (unintentional), initial encounter (principal); T40.5X1A Poisoning by cocaine, accidental (unintentional), initial encounter; U07.1 COVID-19; Y92.9 Unspecified place or not applicable; R45.851 Suicidal ideations; F14.19 Cocaine abuse with unspecified cocaine-induced disorder; F12.10 Cannabis abuse, uncomplicated; Z79.899 Other long term (current) drug therapy
CPT/HCPCS: 80053; 80307; 82077; 85025; 87635; 99283

== ENCOUNTER 2021-10-04 14:32 | Emergency (ER) | payer OTHER, SELFPAY ==
[2021-10-04 14:37] VITALS: BP 153/110; BP 178/111; PULSE 108; PULSE 120; RESP 18; TEMP 37.2; O2SAT 100; O2SAT 99; BMI 23.6
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
--- NOTE | 2021-10-04 16:00 | HO.SUDE ---
SUDE Patient is a 46 year old Bhutanese speaking male who [place] [facility] [place] being found asleep upon a bench in the community. Patient was given narcan and woke up. This technical report writer met with patient to discuss substance use and treatment options. Patient denies recent opiate use, stating that he had a few beers and sat out to get some sun and fell asleep. Patient is insistent that he would have woken up without the narcan and that he hasn't used any drugs since yesterday. Patient acknowledges that he overdosed yesterday however reports no previous overdoses aside from that one. Patient reports he uses heroin and cocaine from time to time but that he will avoid it in the future, stating they have been cutting fentanyl into everything. Patient reports he has been to detox many times in the past and found it helpful. Patient reports he plans to live with parents as he is blind and his parents help him maintain his sobriety by running a strict household. Patient also reports he plans to reconnect with AA meetings. Reiterated to patient the risk of overdose when combining sedating drugs and alcohol and patient acknowledged. Discussed [facility] and other community supports accessible to patient. Discussed case with ED physician.
--- NOTE | 2021-10-04 16:14 | PC.NURSE ---
Pt comes in via EMS from street where he was found unresponsive, 4mg Narcan given by EMS, now A&Ox4, no complaints, barrett substances other than ETOH but was here yesterday and positive for polysubstances. Pt ambulated with use or walking stick and seeing eye dog. Call rivera within reach. Will continue to monitor.
== END 2021-10-04 16:16 | disposition home or self-care (01) ==
PROVIDERS: Emergency Provider Emergency Medicine; PCP Pediatrics
DX: T40.1X1A Poisoning by heroin, accidental (unintentional), initial encounter (principal); Y92.9 Unspecified place or not applicable; F14.19 Cocaine abuse with unspecified cocaine-induced disorder; F11.19 Opioid abuse with unspecified opioid-induced disorder; Z79.899 Other long term (current) drug therapy
CPT/HCPCS: 99282

== ENCOUNTER 2022-01-19 05:25 | Emergency (ER) | payer OTHER, SELFPAY ==
--- NOTE | ~2022-01-19 | XR_ITS ---
EXAMINATION: XR CHEST CLINICAL INFORMATION: Chest pain COMPARISON: 03/28/2021 TECHNIQUE: Frontal view of the chest was obtained. FINDINGS: Normal symmetric lung volumes. No parenchymal consolidation. No pleural effusion. No pneumothorax. Cardiomediastinal silhouette and pulmonary vascularity are within normal limits. No acute osseous abnormalities. Healed bilateral rib fractures redemonstrated. XR/XR chest 1V IMPRESSION: No acute findings.
--- NOTE | 2022-01-19 05:36 | ECG_ITS ---
Test Reason : CHEST PAIN Blood Pressure : / mmHG Vent. Rate : 097 BPM Atrial Rate : 097 BPM P-R Int : 172 ms QRS Dur : 078 ms QT Int : 372 ms P-R-T Axes : 041 024 023 degrees QTc Int : 472 ms Normal sinus rhythm Normal ECG When compared with ECG of 28-MAR-2021 02:50, No significant change was found Referred By: Generic ED Physician Electronically Signed By:ROSANGELA MANDUJANO
[2022-01-19 05:44] VITALS: BP 132/74; BP 140/79; PULSE 104; PULSE 106; RESP 17; TEMP 36.7; O2SAT 97; BMI 27.3
[2022-01-19 05:51] LABS: MANUAL DIFF FLAG NO
[2022-01-19 05:52] LABS: Basophils Percent Auto 0.7 % (0-2); Eosinophils Absolute Auto 0.3 X10*3/uL (0.0-0.4); Eosinophils Percent Auto 6.1 % (0-4); Hematocrit 28.8 % (42.0-52.0); Hemoglobin 9.6 g/dl (14.0-18.0); Imm Gran Abs Auto 0.01 X10*3/uL (0.00-0.03); Imm Gran Pct Auto 0.2 % (0.0-0.4); Lymphocytes Absolute Auto 2.4 X10*3/uL (1.2-4.9); Lymphocytes Percent Auto 54.4 % (20-40); Mean Corpuscular HGB Conc 33.3 g/dl (31.0-36.0); Mean Corpuscular Hemoglobin 30.1 pg (27.0-33.0); Mean Corpuscular Volume 90.3 fL (80.0-98.0); Mean Platelet Volume 10.2 fL (9.4-12.4); Monocytes Absolute Auto 0.5 X10*3/uL (0.1-1.2); Monocytes Percent Auto 11.5 % (2-11); Neutrophils Absolute Auto 1.2 x10*3/uL (2.0-8.3); Neutrophils Percent Auto 27.1 % (45-73); Red Blood Count 3.19 X10*6/uL (4.60-5.80); Red Cell Distribution Width 15.3 % (11.0-16.0); White Blood Count 4.5 X10*3/uL (4.8-10.8)
[2022-01-19 05:54] LABS: Platelet Count 79 X10*3/uL (160-400)
[2022-01-19 06:09] LABS: Troponin-I High Sensitivity < 3.5 ng/L (<3.5-35.0)
[2022-01-19 06:16] LABS: Ethanol 274 mg/dL
[2022-01-19 06:20] LABS: Anion Gap 11 (12-20); Blood Urea Nitrogen 8 mg/dL (9-16); Calcium 7.8 mg/dL (8.4-10.2); Carbon Dioxide 22 mmol/L (22-29); Chloride 116 mmol/L (96-108); Creatinine Clr Calc Pharmacy 117.3; Estimated Glomerular Filt Rate > 60; Glucose Random 102 mg/dL (60-115); Potassium 3.4 mmol/L (3.3-5.1); Sodium 146 mmol/L (135-145)
--- NOTE | 2022-01-19 07:06 | ED.CHESTPAIN ---
HPI - Chest Pain General Chief Complaint: Chest Pain Stated Complaint: ETOH CP Time Seen by Provider: 01/19/22 07:03 History of Present Illness HPI narrative: Pt presented intoxicated with alcohol c/o dizzness and chest. When I examined at 7 Am is sleeping staes that he was drinking and he has no chest pain MD complaint: chest pain Onset (ago): hour(s) (6) Timing of current episode: now resolved Onset: during rest Pain location: substernal Pain radiation: none Relieving factors: nothing Exacerbating factors: nothing Risk Factors Coronary artery disease risk factors: hypertension Related Data Previous Rx's Medication Instructions Recorded tramadol 50 mg tablet 50 mg PO BID PRN pain #10 tabs 08/25/20 Allergies Allergy/AdvReac Type Severity Reaction Status Date / Time acetaminophen [From TYLENOL] Allergy Intermediate ULCERS Verified 10/03/21 21:11 aspirin [ASA] Allergy Unknown VOMITING Verified 10/03/21 21:11 BLOOD Review of Systems Constitutional: Constitutional: Reports no additional constitutional complaints and Denies snoring Cardiovascular: Cardiovascular: Reports no additional cardiovascular complaints and Denies dyspnea Respiratory: Respiratory: Denies dyspnea, Denies snoring and Denies wheezing Gastrointestinal: Gastrointestinal: Denies diarrhea and Denies vomiting Neurologic: Denies convulsions and Denies seizure-like activity Allergic/Immunologic: Allergic/Immunologic: Denies wheezing PMFSH Past Medical History Medical History Heart murmur Nasal fracture Surgical History S/P TIPS (transjugular intrahepatic portosystemic shunt) Social History Social History Alcohol intake: current Alcohol intake frequency: 3 or more drinks per day Alcohol type: hard liquor Substance Use Type: Crack/Cocaine and Marijuana Advance Directives: No Advance Directives Information Provided: Yes Physical Exam Vital Signs: Vital Signs: Last Vital Signs Temp 98.0 F 01/19/22 05:44 Pulse 81 01/19/22 07:34 Resp 17 01/19/22 07:34 BP 113/57 L 01/19/22 07:34 Pulse Ox 99 01/19/22 07:34 O2 Del Method 01/19/22 07:34 BMI result Body Mass Index 27.3 Const: General: cooperative, no acute distress, well developed, alert and awake Nutritional Appearance: average body habitus Orientation/consciousness: patient oriented x3 Limitations: no limitations HEENT: Head: Yes normal to inspection Face and sinus: Yes normal facial exam Mouth: Normal oral and palatal mucosa present Throat: Yes posterior oropharynx normal Neck: Neck: Yes full ROM Chest: Chest palpation & inspection: normal inspection of the chest Resp: Effort & Inspection: normal respiratory effort Auscultation: clear to auscultation bilaterally Cardio: Jugular venous distension: no JVD Rate: regular rate Rhythm: regular rhythm GI: Inspection: Yes normal to inspection Palpation (GI): Soft to palpation, not firm, nontender and no guarding Skin: General skin exam: no rashes or lesions noted and elasticity normal Lesions: no lesions Rashes: no rashes Neuro: General: patient oriented x3 Cranial nerves: Yes CN's II-XII intact bilaterally Course Reevaluation(s) Reevaluation #1: seen by disaster recovery analyst as well appropriate referral given by disaster recovery analyst ,he is chest pain free now will d/c home MDM - Chest Pain Lab Data Result diagrams: 01/19/22 05:42 01/19/22 05:42 Labs: Lab Results 01/19/22 01/19/22 01/19/22 Range/Units 05:42 05:42 05:42 WBC 4.5 L (4.8-10.8) X10*3/uL RBC 3.19 L (4.60-5.80) X10*6/uL Hgb 9.6 L (14.0-18.0) g/dl Hct 28.8 L (42.0-52.0) % MCV 90.3 (80.0-98.0) fL MCH 30.1 (27.0-33.0) pg MCHC 33.3 (31.0-36.0) g/dl RDW 15.3 (11.0-16.0) % Plt Count 79 L (160-400) X10*3/uL MPV 10.2 (9.4-12.4) fL Immature Gran % (Auto) 0.2 (0.0-0.4) % Neut % (Auto) 27.1 L (45-73) % Lymph % (Auto) 54.4 H (20-40) % [place] % (Auto) 11.5 H (2-11) % Eos % (Auto) 6.1 H (0-4) % Baso % (Auto) 0.7 (0-2) % Lymph # (Auto) 2.4 (1.2-4.9) X10*3/uL [place] # (Auto) 0.5 (0.1-1.2) X10*3/uL Eos # (Auto) 0.3 (0.0-0.4) X10*3/uL Baso # (Auto) 0.0 (0.0-0.2) X10*3/uL Abs Immat Gran (auto) 0.01 (0.00-0.03) X10*3/uL Absolute Neuts (auto) 1.2 L (2.0-8.3) x10*3/uL Absolute Nucleated RBC 0.000 (0.0-0.012) X10*3/uL Nucleated RBC % (auto) 0.0 (0.0-0.2) /100WBC Sodium 146 H (135-145) mmol/L Potassium 3.4 (3.3-5.1) mmol/L Chloride 116 H (96-108) mmol/L Carbon Dioxide 22 (22-29) mmol/L Anion Gap 11 L (12-20) BUN 8 L (9-16) mg/dL Creatinine 0.77 (0.5-1.4) mg/dL Estim Creat Clear Calc 117.3 Estimated GFR > 60 Random Glucose 102 (60-115) mg/dL Calcium 7.8 L (8.4-10.2) mg/dL Troponin I High Sens < 3.5 (<3.5-35.0) ng/L Ethyl Alcohol mg/dL 01/19/22 Range/Units 05:42 WBC (4.8-10.8) X10*3/uL RBC (4.60-5.80) X10*6/uL Hgb (14.0-18.0) g/dl Hct (42.0-52.0) % MCV (80.0-98.0) fL MCH (27.0-33.0) pg MCHC (31.0-36.0) g/dl RDW (11.0-16.0) % Plt Count (160-400) X10*3/uL MPV (9.4-12.4) fL Immature Gran % (Auto) (0.0-0.4) % Neut % (Auto) (45-73) % Lymph % (Auto) (20-40) % [place] % (Auto) (2-11) % Eos % (Auto) (0-4) % Baso % (Auto) (0-2) % Lymph # (Auto) (1.2-4.9) X10*3/uL [place] # (Auto) (0.1-1.2) X10*3/uL Eos # (Auto) (0.0-0.4) X10*3/uL Baso # (Auto) (0.0-0.2) X10*3/uL Abs Immat Gran (auto) (0.00-0.03) X10*3/uL Absolute Neuts (auto) (2.0-8.3) x10*3/uL Absolute Nucleated RBC (0.0-0.012) X10*3/uL Nucleated RBC % (auto) (0.0-0.2) /100WBC Sodium (135-145) mmol/L Potassium (3.3-5.1) mmol/L Chloride (96-108) mmol/L Carbon Dioxide (22-29) mmol/L Anion Gap (12-20) BUN (9-16) mg/dL Creatinine (0.5-1.4) mg/dL Estim Creat Clear Calc Estimated GFR Random Glucose (60-115) mg/dL Calcium (8.4-10.2) mg/dL Troponin I High Sens (<3.5-35.0) ng/L Ethyl Alcohol 274 mg/dL Imaging Data Chest x-ray: Radiologist's impression: CLINICAL INFORMATION: Chest pain COMPARISON: 03/28/2021 TECHNIQUE: Frontal view of the chest was obtained. FINDINGS: Normal symmetric lung volumes. No parenchymal consolidation. No pleural effusion. No pneumothorax.? Cardiomediastinal silhouette and pulmonary vascularity are within normal limits. No acute osseous abnormalities. Healed bilateral rib fractures redemonstrated. XR/XR chest 1V IMPRESSION: No acute findings. ? Dictated By: Toni Ramos MD Signed By: <Electronically signed by Toni Ramos MD in OV> 01/19/22626 DD/ 2 TD/TT:? [employer] Developer: GWYN ECG Data ECG #1: ECG interpretation time: 07:11 Pacemaker model: NSR [address] t changes Discharge Plan Discharge Clinical Impression: Alcohol intoxication, Chest pain Patient Disposition: Home, Self-Care Instructions: Chest Pain (DC), Alcohol Intoxication (ED) Additional Instructions: Follow-up with your primary care physician tomorrow please consider detox . Prescriptions: No Action tramadol 50 mg tablet 50 mg PO BID PRN (Reason: pain) Qty: 10 0RF Referrals: Jany Baig DO [Primary Care Provider] -
[2022-01-19] MEDS: 0.9 % Sodium Chloride 1,000 ML 999 ML IVCONT (07:33)
[2022-01-19 07:34] VITALS: BP 113/57; PULSE 81; RESP 17; O2SAT 99
--- NOTE | 2022-01-19 07:37 | PC.NURSE ---
Pt sleeping, awakens to touch, oriented x 3 at this time. Denies pain, NSR on monitor in the 80's, VS as charted, fluids running as per MAR orders. call rivera within reach. Will continue to monitor.
--- NOTE | 2022-01-19 09:25 | MHC.RECOVRN ---
Met with pt in ED10 to discuss substance use and desire for tx. Pt reports having been in recovery x 1.5 months and returning to use on 01/14 due to 01/15 being the 1 year anniversary of brother passing. Pt reports drinking alcohol, liquor and beer, all day every day, I don't even know how much. Pt also reports crack cocaine daily, unknown amount, last use yesterday. In addition, pt reports occasional heroin use, last use a couple days ago, 1 bag. Pt has been to [facility] for ATS in the past and would like to return. T/w spoke with Miriam from [facility] regarding pt, awaiting return call.
--- NOTE | 2022-01-19 09:52 | MHC.RECOVRN ---
Pt unable to return to [facility] at this time due to recurrence occurring less than 7 days ago. [facility] does not have availability. At this time pt plans to dc home and connect with outpatient supports. Pt has therapist through insurance coming today for appt at 12:00, pt also connected to [facility]. Discussed with provider. Pt to be transported home via Lyft.
== END 2022-01-19 10:15 | disposition home or self-care (01) ==
PROVIDERS: Emergency Provider Emergency Medicine; PCP Pediatrics
DX: F10.220 Alcohol dependence with intoxication, uncomplicated (principal); Y90.8 Blood alcohol level of 240 mg/100 ml or more; R07.9 Chest pain, unspecified; F19.10 Other psychoactive substance abuse, uncomplicated
CPT/HCPCS: 36415; 71045; 80048; 82077; 84484; 85025; 93005; 96360; 99284

== ENCOUNTER 2022-02-12 16:28 | Emergency (ER) | payer OTHER, SELFPAY ==
--- NOTE | ~2022-02-12 | CT_ITS ---
Indication: Trauma EXAMINATION: CT of the cervical spine and CT of the brain. Axial imaging with coronal and sagittal reformatted images. Radiation dose is [address] examination was performed using dose optimization techniques as appropriate, variously including the following: *Automated exposure control *Adjustment of mA and/or kV according to patient size (this includes techniques or standardized protocols for targeted exams where dose is matched to indication/reason for exam; i.e. extremities or head) *Use of iterative reconstruction technique. Comparison is made to previous exam dated 08/25/2020. CT of the cervical spine; There is no acute fracture or dislocation. Degenerative change at C6-C7. CT brain; There is no midline shift. There is no mass effect. There is no hemorrhage. The basal cisterns appear patent. The posterior fossa is grossly within normal limits. No extra-axial collection. Scattered possible areas of white matter ischemic change in this young patient. The partially visualized sinuses are grossly clear. CT/CT cervical spine wo IV con IMPRESSION: No acute fracture or dislocation of the cervical spine. Negative acute noncontrast CT of the brain
--- NOTE | ~2022-02-12 | CT_ITS ---
Indication: Trauma EXAMINATION: CT of the cervical spine and CT of the brain. Axial imaging with coronal and sagittal reformatted images. Radiation dose is [address] examination was performed using dose optimization techniques as appropriate, variously including the following: *Automated exposure control *Adjustment of mA and/or kV according to patient size (this includes techniques or standardized protocols for targeted exams where dose is matched to indication/reason for exam; i.e. extremities or head) *Use of iterative reconstruction technique. Comparison is made to previous exam dated 08/25/2020. CT of the cervical spine; There is no acute fracture or dislocation. Degenerative change at C6-C7. CT brain; There is no midline shift. There is no mass effect. There is no hemorrhage. The basal cisterns appear patent. The posterior fossa is grossly within normal limits. No extra-axial collection. Scattered possible areas of white matter ischemic change in this young patient. The partially visualized sinuses are grossly clear. CT/CT head/brain wo IV con IMPRESSION: No acute fracture or dislocation of the cervical spine. Negative acute noncontrast CT of the brain
--- NOTE | ~2022-02-12 | CT_ITS ---
EXAMINATION: CT CHEST, ABDOMEN AND PELVIS WITHOUT CONTRAST CLINICAL INFORMATION: EtOH. COMPARISON: CT abdomen pelvis 07/20/2020 TECHNIQUE: Multidetector volumetric CT imaging of the chest, abdomen and pelvis was obtained without oral or intravenous contrast. Coronal and sagittal reformatted images are performed at CT scanner [This CT examination was performed using dose optimization techniques as appropriate, variously including the following: *Automated exposure control *Adjustment of mA and/or kV according to patient size (this includes techniques or standardized protocols for targeted exams where dose is matched to indication/reason for exam; i.e. extremities or head) *Use of iterative reconstruction technique] DLP: 593.66+269.79+7.31+7.31 mGy-cm. FINDINGS: CT CHEST: Lungs: The lungs are clear with no evidence of inflammation or nodules. Mediastinum: Heart size is normal. Small volume of coronary calcification. No pericardial effusion. No mediastinal mass or significant lymphadenopathy. Thyroid is unremarkable. Pleura: There is no pleural effusion. No pleural mass or thickening. Axilla: No lymphadenopathy. CT ABDOMEN AND PELVIS: Liver, Gallbladder and Biliary Tree: There is TIPS stent present. Liver is nodular in contour consistent with cirrhosis. No focal liver lesion or intrahepatic bile duct dilatation. Gallbladder is distended. Gallbladder measures 14 cm of length. Multiple small gallstones layering dependently in the gallbladder. There is a 1 cm gallstone impacted near the neck of the gallbladder. No edema around the gallbladder. Extrahepatic CBD measures 5 mm. No calcified stone in the bile ducts. Pancreas: No acute change of the pancreas. No mass. No pancreatic duct dilatation. Spleen: Spleen borderline enlarged measuring 11.8 cm. No splenic lesion. Adrenal Glands: Streak artifact from embolization material in the upper abdomen does obscure the adrenal glands. Kidneys and Ureters: The kidneys are normal in size, shape, and attenuation. No hydronephrosis, hydroureter, or calculi seen. No perinephric stranding. No attenuating cysts measuring 2.5 cm lower pole left kidney. Small parapelvic cysts in the left kidney. No follow-up imaging is recommended for simple renal cyst. Bladder: Unremarkable. Gastrointestinal Tract: The small and large bowel are unremarkable. The appendix is unremarkable. Mesentery: No focal inflammation. No free fluid. No free air. Abdominal Wall: Bilateral fat-containing inguinal hernias. Lymph Nodes: Normal. Vascular: Unremarkable. Pelvic Viscera: Unremarkable. Osseous Structures: No acute osseous abnormality. Old healed fracture of the posterior right ninth rib. Old healed fracture of the posterior left sixth through 10th ribs. CT/CT abdomen pelvis wo IV con IMPRESSION: 1. No acute change of chest. 2. Cirrhosis of liver with TIPS catheter in place. 3. Gallbladder is distended. Multiple gallstones within the gallbladder. There is a 1 cm stone impacted near the neck of the gallbladder. There is no edema around the gallbladder. There is no bile duct dilatation or calcified bile duct stone.
[2022-02-12 16:36] VITALS: BP 139/87; BP 168/90; PULSE 100; PULSE 108; TEMP 36.8; O2SAT 99; BMI 26.6
--- NOTE | 2022-02-12 16:36 | ED_ITS ---
HPI - General Adult General Chief complaint: Fall Stated complaint: ETOH Fall Time Seen by Provider: 02/12/22 16:36 Source: patient and EMS Mode of arrival: EMS Limitations: no limitations History of Present Illness HPI narrative: Patient is a 46 year old legally blind male presenting to the emergency department today after a fall. Patient states that before he began drinking today, he tripped and fell, hitting the back of his head. Patient states that he did not lose consciousness and when he got up, he went down the [place] to his [facility] apartment where they drank a few beers . Patient states that he is legally blind and usually uses a walking stick to help him navigate. Patient states that he does have a history of a brain bleed from something similar happening. Patient states that he has somewhat of a headache currently. Patient denies any dizziness, lightheadedness, abdominal pain, nausea, vomiting, fever, chills, blurry vision, double vision, loss of vision, chest pain, difficulty saul athing, shortness of breath, back pain, night sweats, pain with urination, increased urinary frequency, increased urinary urgency, blood in his urine or stool, syncope or a near syncopal episode, bowel incontinence, bladder incontinence, bowel retention, bladder retention, or any other complaints at this time. Onset (ago): hour(s) Location: head Radiation: non-radiation Severity: mild Severity scale (1-10): 2 Quality: aching Pain Consistency: constant Relieving factors: none Exacerbating factors: none Associated symptoms: denies other symptoms Treatments prior to arrival: none Related Data Previous Rx's Medication Instructions Recorded tramadol 50 mg tablet 50 mg PO BID PRN pain #10 tabs 08/25/20 Allergies Allergy/AdvReac Type Severity Reaction Status Date / Time acetaminophen [From TYLENOL] Allergy Intermediate ULCERS Verified 10/03/21 21:11 aspirin [ASA] Allergy Unknown VOMITING Verified 10/03/21 21:11 BLOOD Review of Systems Constitutional: Constitutional: Reports no additional constitutional complaints, Denies chills, Denies fever(s), Reports headache(s) and Denies night sweats Eyes: Eyes: Reports no additional eye complaints, Denies blurry vision, Denies change in vision, Denies diplopia, Denies eye discharge, Denies loss of vision and Denies eye pain ENT: Denies dizziness and Reports headache(s) Cardiovascular: Cardiovascular: Reports no additional cardiovascular complaints, Denies chest pain, Denies lightheadedness, Denies Loss of Consciousness and Denies dyspnea Respiratory: Respiratory: Reports no additional respiratory complaints and Denies dyspnea Gastrointestinal: Gastrointestinal: Reports no additional gastrointestinal complaints, Denies abdominal pain, Denies melena, Denies hematochezia, Denies change in bowel habits and Denies change in stool character Genitourinary: Genitourinary: Reports no additional male genitourinary complaints, Denies hematuria, Denies oliguria, Denies difficulty urinating, Denies dysuria, Denies urinary frequency, Denies urinary hesitancy, Denies urina ry incontinence and Denies urinary urgency Musculoskeletal: Musculoskeletal: Reports no additional musculoskeletal complaints, Denies numbness and Denies tingling Neurologic: Denies dizziness, Reports headache(s), Denies loss of vision, Denies numbness and Denies tingling Psychiatric: Psychiatric: Reports no additional psychiatric complaints Endocrine: Endocrine: Reports no additional endocrine complaints Hematologic/Lymphatic: Hematologic/Lymphatic: Reports no additional hematologic/lymphatic complaints Allergic/Immunologic: Allergic/Immunologic: Reports no additional allergic/immunologic complaints [facility] Past Medical History Attestation statement: The following information was validated with the patient. Source: old records reviewed Medical History Heart murmur Nasal fracture Surgical History S/P TIPS (transjugular intrahepatic portosystemic shunt) Social History Social History Alcohol intake: current Alcohol intake frequency: 3 or more drinks per day Alcohol type: hard liquor Substance Use Type: Crack/Cocaine and Marijuana Advance Directives: No Advance Directives Information Provided: No Physical Exam ED Vital Signs: Vital Signs - 24 hr 02/12/22 16:36 Temperature 98.2 F Pulse Rate 108 H Blood Pressure 139/87 Pulse Oximetry 99 Oxygen Delivery Method Room Air BMI result Body Mass Index 26.6 Const General: cooperative, no acute distress, alert and awake Nutritional Appearance: well nourished Orientation/consciousness: patient oriented x3 Limitations: no limitations HENMT Head: Yes normal to inspection and Yes atraumatic Ears: hearing grossly normal bilaterally and external ears normal General nose exam: Normal external nose present, no nasal discharge noted and no epistaxis Face and sinus: Yes normal facial exam, No abrasion and No laceration Mouth: Normal oral and palatal mucosa present, no drooling and no muffled voice Eyes General: appearance normal, both eyes and all related structures Periorbital: periorbital findings normal Eyelids: Yes eyelids normal Conjunctivae: conjunctivae normal Pupils: Equal, round and reactive pupils present EOM: EOMs intact bilaterally Neck Neck: Yes normal visual inspection, Yes full ROM and Yes no lymphadenopathy Chest Chest palpation & inspection: normal inspection of the chest Resp Effort & Inspection: normal respiratory effort and able to speak in complete sentences Auscultation: clear to auscultation bilaterally Cardio Rate: tachycardic Rhythm: regular rhythm GI Inspection: Yes normal to inspection Neuro General: patient oriented x3 and moves all extremities Cranial nerves: Yes Equal, round and reactive pupils present Cognition (Neuro): normal cognition Motor exam (neuro): 5/5 motor strength present throughout Sensory Exam: Normal double simultaneous stimulation for sensation Coordination: [id number] test normal Extrem General: Yes normal to inspection, Yes full ROM and Yes capillary refill normal Psych Appearance: grossly normal Mental Status: mental status grossly normal Affect: normal affect Attitude: cooperative Thought process: Normal thought process present Thought content: Normal thought content present Insight: Good insight present (Psych) Medical Decision Making MDM Narrative Medical decision making narrative: Patient is a 46 year old male presenting to the emergency department today with a headache after a fall. Patient's physical exam was unremarkable. Patient refused all blood work. Patient's refused an EKG was unremarkable. Patient's head, c-spine, chest, and abdomen/pelvis CTs showed no acute trauma process. I explained my physical exam findings as well as all test results to the patient. I answered all questions asked by the patient. Patient was steady on his feet and of sound decision making capability. Patient was given a Lyft back home. I stressed the importance of the patient taking his medication as prescribed. I stressed the importance of the patient following up with his primary care provider. I stressed the importance of the patient returning to the emergency department immediately if his symptoms were to worsen or if he were to develop any dizziness, shortness of breath, difficulty breathing, chest pain, blurry vision, loss of vision, nausea, vomiting, abdominal pain, fever, chills, back pain, or any other complaints. Patient verbalized agreement and understanding with this treatment plan and discharge. Differential Diagnosis Differential Diagnosis: alcohol intoxication, fall Medical Records Medical records reviewed: Yes I reviewed the patient's medical records. Imaging Data CT chest, abdomen, pelvis: Attestation: I personally reviewed and interpreted this imaging study as follows: My impression: No acute fracture or trauma related injury. Radiologist's impression: EXAMINATION: XR FOOT, LEFT CLINICAL INFORMATION: ? Foreign body left heel? COMPARISON: None? TECHNIQUE: AP, lateral, and oblique views of the left foot. FINDINGS: The bones and soft tissues are normal. No fracture. Alignment is anatomic. Joint spaces are maintained.? XR/XR foot LT 2V IMPRESSION: Normal left foot. No radiopaque foreign body is seen. Soft tissue ultrasound could be performed if there are continued clinical concerns. Dictated By: Raymond Lagos MD Signed By: Electronically signed by Raymond Lagos MD 02/12/[address] scan - head: Attestation: I personally reviewed and interpreted this imaging study as follows: My impression: No acute process. Radiologist's impression: EXAMINATION: CT of the cervical spine and CT of the brain. Axial imaging with coronal and sagittal reformatted images. Radiation dose is [address] examination was performed using dose optimization techniques as appropriate, variously including the following: *Automated exposure control *Adjustment of mA and/or kV according to patient size (this includes techniques or standardized protocols for targeted exams where dose is matched to indication/reason for exam; i.e. extremities or head) *Use of iterative reconstruction technique. Comparison is made to previous exam dated 08/25/2020. CT of the cervical spine; There is no acute fracture or dislocation. Degenerative change at C6-C7. CT brain; There is no midline shift. There is no mass effect. There is no hemorrhage. The basal cisterns appear patent. The posterior fossa is grossly within normal limits. No extra-axial collection. Scattered possible areas of white matter ischemic change in this young patient. The partially visualized sinuses are grossly clear. CT/CT head/brain wo IV con IMPRESSION: No acute fracture or dislocation of the cervical spine. ? Negative acute noncontrast CT of the brain Dictated By: Ge Garcia MD Signed By: Electronically signed by Ge Garcia MD 02/12/22 4984 Discharge Plan Discharge Clinical Impression: Alcohol abuse, Fall Patient Disposition: Home, Self-Care Instructions: Fall Prevention (ED), Alcohol Use Disorder (ED) Additional Instructions: Follow up with your primary care provider. Return to the emergency department im mediately if your symptoms worsen or if you develop any dizziness, shortness of breath, difficulty breathing, chest pain, blurry vision, loss of vision, nausea, vomiting, abdominal pain, fever, chills, back pain, or any other complaints. Prescriptions: No Action tramadol 50 mg tablet 50 mg PO BID PRN (Reason: pain) Qty: 10 0RF Referrals: [facility] Family Medicine [Provider Group] (Call to establish and follow up with a primary care provider. If you already have a primary care provider, please follow up with them. ) [facility] Primary CareAlexis [Provider Group] [facility] Primary Care[facility] [Provider Group] Interventions: ED Discharge Assessment Last Done: 02/12/22 19:40 Print Language: Japanese
--- NOTE | 2022-02-12 18:46 | PC.NURSE ---
PATIENT REFUSED EKG ,BLOOD WORK AND VITALS SIGN ,PROVIDER MINERVA AND RN FUENTES ARAGON IS AWARE .
== END 2022-02-12 20:02 | disposition home or self-care (01) ==
PROVIDERS: Emergency Provider Internal Medicine
DX: F10.10 Alcohol abuse, uncomplicated (principal); Y90.9 Presence of alcohol in blood, level not specified; Z91.81 History of falling; R51.9 Headache, unspecified
CPT/HCPCS: 70450; 71250; 72125; 74176; 99282; 99284

== ENCOUNTER 2022-03-14 02:48 | Emergency (ER) | payer OTHER, SELFPAY ==
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
[2022-03-14 02:59] VITALS: BP 156/97; PULSE 102; RESP 20; TEMP 36.3; O2SAT 97; BMI 27.8
--- OUTSIDE RECORDS SUMMARY | 2022-03-14 03:11 | XMS_ITS | Continuity of Care Document ---
:1975 Author Organization [facility] Address [address] [place] [address]- Care Team Providers Name Role Phone Jany Baig DO Primary Care Physician Encounter [facility] Date(s): 01/14/22 - 02/13/22 [facility] [id number] [place] [address]- Allergies, Adverse Reactions, Alerts Substance Reaction Severity Status ibuprofen1 Hx of GI Bleed Active aspirin2 Hx GI Bleed Active Tylenol3 Cirrhosis Active NSAIDs Active 1pt advised not to take NSAIDs or Tylenol due to underlying liver disease. Also had GI side effects when took too much aspirin in the past.2pt took too much in the past and had GI side [id number] advised not to take d/t underlying liver disease Immunizations Given and Recorded Vaccine Date Status Refusal Reason SARS-CoV-2 (COVID-19) mRNA-1273 vaccine 04/08/21 Recorded SARS-CoV-2 (COVID-19) mRNA-1273 vaccine 03/10/21 Recorded influenza virus vaccine, inactivated 03/10/21 Recorded influenza virus vaccine, inactivated 03/01/20 Recorded influenza virus vaccine, inactivated 05/01/19 Recorded influenza virus vaccine, inactivated 02/25/18 Recorded influenza virus vaccine, inactivated 02/12/18 Recorded influenza virus vaccine, inactivated1 04/29/17 Given influenza virus vaccine, inactivated 04/15/16 Given influenza virus vaccine, inactivated 03/16/15 Given influenza virus vaccine, inactivated 03/12/14 Given influenza virus vaccine, inactivated2 02/28/13 Given hepatitis B adult vaccine 03/01/20 Recorded hepatitis B adult vaccine3 02/28/13 Given Hepatitis B Vaccine (old term) 4/27/20 Recorded Hepatitis B Vaccine (old term)4 09/08/12 Given Hepatitis B Vaccine (old term) 08/09/12 Given tetanus/diphtheria/pertussis, acel(Tdap) 06/22/18 Given tetanus/diphtheria/pertussis, acel(Tdap) 11/25/15 Given pneumococcal 23-valent vaccine 03/16/15 Given Pneumococcal Vaccine (oldterm) 08/02/12 Given Tet/diphth/pertussis, acel (oldterm) 08/02/12 Given 1Result Comment: [04/29/2017] [id number] Note: [id number] Note: 3 [id number] Note: #2 Medications acetaminophen 500 mg oral tablet 1 tablet, By Mouth, 4 times a day, PRN NEEDED FOR PAIN, MAX 4, PER DAY (VIAL., # 50 tablet, 0 Refills, [facility], 175, cm, 01/06/22 10:34:00 EDT, Height, 78.3, kg, 12/26/21 19:05:00 EDT, Dry Weight Start Date: 01/28/22 Status: OrderedamLODIPine 5 mg oral tablet 5 mg, 1, tablet, By Mouth, Daily, # 30 tablet, Refills 5, Tot. Refills 5, Maintenance, 10/21/21 10:15:00 EDT, [facility], Partial fill upon patient request if the prescription is for a schedule II opioid drug.... Start Date: 10/21/21 Status: OrderedCo Q-10 100 mg oral capsule 1 capsule, By Mouth, 4 times a day, # 120 capsule, 6 Refills, [facility], 174, cm, 02/27/21 15:17:00 EDT, Height, 81, kg, 02/27/21 14:06:00 EDT, Dry Weight Start Date: 07/08/21 Status: OrderedCompression Stockings See Instructions, # 4 each, Refills 2, Tot. Refills 2, Maintenance, surgical, calf length 20-30 mm Hg M79.89 M79.606, 01/06/22 10:58:00 EDT, Supply Start Date: 01/06/22 Status: Orderedfluticasone 50 mcg/inh nasal spray See Instructions, USE 1 SPRAY INTO EACH NOSTRIL TWICE A DAY, # 16 Gm, 5 Refills, [facility],30, USE 1 SPRAY INTO EACH NOSTRIL TWICE A DAY, 174, cm, 07/14/21 8:16:00 EST, Height, 81, kg, 02/27/21 14:06:00 EDT, Dry Weight Start Date: 08/04/21 Status: Orderedfolic acid 1 mg oral tablet 1 mg, 1, tablet, By Mouth, Daily, # 90 tablet, Refills 4, Tot. Refills 4, Maintenance, 10/27/21 10:40:00 EDT, Route to Pharmacy Electronically, [facility], Partial fill upon patient request if the prescription is for a schedule II opioid drug.... Start Date: 10/27/21 Stop Date: 01/20/23 Status: Orderedfurosemide 20 mg oral tablet 1, tablet, By Mouth, Daily, # 30 tablet, Refills 0, Route to Pharmacy Electronically, [facility], 175, cm, 01/06/22 10:34:00 EDT, Height, 78.3, kg, 12/26/21 19:05:00 EDT, Dry Weight Start Date: 01/21/22 Status: OrderedhydrOXYzine hydrochloride 25 mg oral tablet 1 TO 2 TABLETS, By Mouth, 3 times a day, PRN NEEDED FOR ANXIETY (VIAL), # 60 tablet, 0 Refills, [facility], 175, cm, 01/06/22 10:34:00 EDT, Height, 78.3, kg, 12/26/21 19:05:00 EDT, Dry Weight Start Date: 01/28/22 Status: Orderedlactulose 10 gm/15 ml oral syrup See Instructions, TAKE 30ML BY MOUTH THREE TIMES DAILY NEEDED TO ACHEIVE 3-4 BOWL MOVEMENTS PER DAY, # 3,000 mL, 10 Refills, [facility], 30, TAKE 30ML BY MOUTH THREE TIMES DAILY NEEDED TOACHEIVE 3-4 BOWL MOVEMENTS PER DAY, 174, cm, 02/12... Start Date: 07/02/21 Status: Orderedlidocaine 0.5% topical gel 1 application, Topically, 3 times a day, # 120 Gm, 0 Refills, Acute 12/30/22 17:23:00 EDT, 12/30/21 17:23:00 EDT, Gel, [facility], Partial fill upon patient request if the prescription is for aschedule II opioid drug., 1 application Topically... Start Date: 12/30/21 Stop Date: 12/30/22 Status: OrderedLidoderm 5% film 1 patch, Topically, Daily, remove patches after 12 hours NSAIDS contraindicated High dose tylenol contraindicated, # 30 patch, 5 Refills, Maintenance, 12/26/21 9:33:00 EDT, [facility], Partial fill upon patient request if the prescription i... Start Date: 12/26/21 Status: Orderedmagnesium oxide 400 mg oral tablet 1 tablet, By Mouth, 2 times a day, # 60 tablet, 0 Refills, [facility], 175, cm, 01/06/22 10:34:00 EDT, Height, 78.3, kg, 12/26/21 19:05:00 EDT, Dry Weight Start Date: 01/21/22 Status: OrderedMelatonin 3 mg oral tablet 1 tablet, By Mouth, Daily at bedtime, PRN NEEDED FOR INSOMNIA (PACKAGE IN TRAY), # 60 tablet, 5 Refills, Maintenance, 06/02/21 16:17:00 EST, [facility], 28, 1 tablet By Mouth Daily at bedtime,PRN: NEEDED FOR INSOMNIA (PACKAGE IN TRAY), 17... Start Date: 06/02/21 Status: OrderedMiraLax Powder 1 pack/packet = 17 Gm, By Mouth, 2 times a day, PRN Constipation, 0 Refills, Maintenance, 08/28/21 10:25:00 EDT, Powder, Partial fill upon patient request if the prescription is for a schedule II opioid drug. Start Date: 08/28/21 Status: Orderedpantoprazole 40 mg oral delayed release tablet = 40 mg, By Mouth, Daily, # 30 each, 5 Refills, Maintenance, 10/21/21 10:15:00 EDT, EC Tablet, 175, cm, 10/10/21 16:04:00 EDT, Height, 87, kg, 09/27/21 21:30:00 EDT, Dry Weight Start Date: 10/21/21 Stop Date: 04/19/22 Status: Orderedpotassium chloride 20 mEq oral tablet, extended release 2 tablet = 40 mEq, By Mouth, Daily, # 60 tablet, 1 Refills, Maintenance, 01/28/22 10:17:00 EDT, ER Tablet, [facility], Partial fill upon patient request if the prescription is for a schedule IIopioid drug., 175, cm, 01/06/22 10:34:00 EDT, Hei... Start Date: 01/28/22 Stop Date: 03/29/22 Status: Orderedpyridoxine 50 mg oral tablet 50 mg, 1, tablet, By Mouth, Daily, for 90 days, # 90 tablet, Refills 4, Tot. Refills 4, Acute 01/15/23 11:42:00 EDT, 10/22/21 11:42:00 EDT, Route to Pharmacy Electronically, [facility], Partialfill upon patient request if the prescription is... Start Date: 10/22/21 Stop Date: 01/15/23 Status: OrderedR aircast ankle-stirrup support brace R aircast ankle-stirrup support brace, See Instructions, # 1 each, Refills 0, Tot. Refills 0, Maintenance, Dx: R inversion ankle sprain s93.409a, 01/06/22 12:31:00 EDT, Supply Start Date: 01/06/22 Status: MlcdkraPzy-M-Qedm oral tablet 1 tablet, By Mouth, Daily, # 90 tablet, 9 Refills, [facility], 28, TAKE 1 TABLET BY MOUTH ONCE A DAY, 174, cm, 07/14/21 8:16:00 EST, Height, 81, kg, 02/27/21 14:06:00 EDT, Dry Weight Start Date: 07/22/21 Status: OrderedtraZODone 50 mg oral tablet See Instructions, TAKE 1 TO 2 TABLETS BY MOUTH AT BEDTIME (ONE DOSE IN VIAL), # 60 tablet, Refills 0, Instructions Replace Required Details, Route to Pharmacy Electronically, [facility], 175, cm, 01/06/22 10:34:00 EDT, Height, 78.3, kg, ... Start Date: 01/30/22 Status: OrderedtraZODone 50 mg oral tablet See Instructions, TAKE 2-3 TABLETS BY MOUTH AT BEDTIME (ONE DOSE IN VIAL), # 90 tablet, Refills 5, Tot. Refills 5, Maintenance, 12/26/21 9:21:00 EDT, Instructions Replace Required Details, Route to Pharmacy Electronically, [facility], 170, cm,... Start Date: 12/26/21 Status: OrderedVitamin B1 100 mg oral tablet 1, tablet, By Mouth, Daily, # 90 tablet, Refills 0, Route to Pharmacy Electronically, [facility], 170, cm, 11/12/21 10:02:00 EDT, Height, 78, kg, 11/04/21 12:03:00 EDT, Dry Weight Start Date: 12/24/21 Status: OrderedXifaxan 550 mg oral tablet 1 tablet, By Mouth, 2 times a day, # 60 tablet, 2 Refills, [facility], 175, cm, 01/06/22 10:34:00 EDT, Height, 78.3, kg, 12/26/21 19:05:00 EDT, Dry Weight Start Date: 01/21/22 Status: Ordered Problem List Condition Effective Dates Status Health Status Informant AC joint derangement(Confirmed)1 Active H/o Acute upper GI bleed due to Active variceal bleed(Confirmed) Alcohol abuse(Confirmed) Active Alcoholic hepatitis, Active cirrhosis(Confirmed)2, 3 Anemia(Confirmed)4 Active Patellar contusion, seen by [facility] Active spring 2015(Confirmed) Esophageal varices s/p TIPS(Confirmed) Active Gynecomastia, male(Confirmed) Active H/O: substance abuse; reports sobriety Active since summer 2015(Confirmed)5 Hepatic encephalopathy(Confirmed) Active ED (erectile dysfunction)(Confirmed) Active Insomnia(Confirmed) Active Migraine(Confirmed) 08/02/12 Active Anxiety and depression; admission to Active [facility] in 06/2015(Confirmed) Neuropathy(Confirmed)6 Active Normocytic anemia(Confirmed) Active ANA LUISA (obstructive sleep Active apnea)(Confirmed) Sherie's Optic neuropathy(Confirmed)7, Active 8, 9 Overweight(Confirmed) Active Heart murmur, systolic(Confirmed)10 Active Vitamin D insufficiency(Confirmed) 08/16/12 Active 1refer [id number] HEP C,b; immune HEP A,3r/o [id number] counseling6? [id number] RF ANCA,normal immunofixation,8lumbar puncture November 2011,neg lymenormal IGA neg SSA ,SSBnormal methylmalonic acid homocyseine9 legally blind;[id number] echo November 2014 Social History Social History Type Response Smoking Status 10 or more cigarettes (1/2 p ack or more)/day in last 30 days entered on: 02/04/19 Sex Care Team PersonnelName: Jany Baig DO Address: [address] [place] [address] [facility] [place], [place] [address]
--- OUTSIDE RECORDS SUMMARY | 2022-03-14 03:11 | XMS_ITS | Continuity of Care Document ---
:1975 Author Organization [facility] Address [address] [place] [address]- Care Team Providers Name Role Phone Jany Baig DO Primary Care Physician Encounter [facility] Date(s): 12/30/21 - 01/29/22 [facility] [address] [place] [address]- Allergies, Adverse Reactions, Alerts Substance Reaction Severity Status ibuprofen1 Hx of GI Bleed Active aspirin2 Hx GI Bleed Active Tylenol3 Cirrhosis Active NSAIDs Active 1pt advised not to take NSAIDs or Tylenol due to underlying liver disease. Also had GI side effects when took too much aspirin in the past.2pt took too much in the past and had GI side [id number] advised not to take d/t underlying liver [...] 02/28/13 Given Hepatitis B Vaccine (old term) 10/09/19 Recorded Hepatitis B Vaccine (old term)4 09/08/12 Given Hepatitis B Vaccine (old term) 08/09/12 Given tetanus/diphtheria/pertussis, acel(Tdap) 06/22/18 Given tetanus/diphtheria/pertussis, acel(Tdap) 11/25/15 Given pneumococcal 23-valent vaccine 03/16/15 Given Pneumococcal Vaccine (oldterm) 08/02/12 Given Tet/diphth/pertussis, acel (oldterm) 08/02/12 Given 1Result Comment: [04/29/2017] [id number] Note: [id number] Note: 3 [id number] Note: #2 Medications acetaminophen 500 mg oral tablet 1 tablet, By Mouth, 4 times a day, PRN NEEDED FOR PAIN, MAX 4, PER DAY (VIAL., # 50 tablet, 0 Refills, [facility], 175, cm, 01/06/22 10:34:00 EDT, Height, 78.3, kg, 12/26/21 19:05:00 EDT, Dry Weight Start Date: 01/28/22 Status: OrderedamLODIPine 5 mg oral tablet 5 mg, 1, tablet, By Mouth, Daily, # 30 tablet, Refills 5, Tot. Refills 5, Maintenance, 10/21/21 10:15:00 EDT, [facility], Partial fill upon patient request if the prescription is for a schedule II opioid drug.... Start Date: 10/21/21 Status: OrderedCo Q-10 100 mg oral capsule 1 capsule, By Mouth, 4 times a day, # 120 capsule, 6 Refills, [facility], 174, cm, 02/27/21 15:17:00 EDT, Height, [...] A DAY, # 16 Gm, 5 Refills, [facility],30, USE 1 SPRAY INTO EACH NOSTRIL TWICE A DAY, 174, cm, 07/14/21 8:16:00 EST, Height, 81, kg, 02/27/21 14:06:00 EDT, Dry Weight Start Date: 08/04/21 Status: Orderedfolic acid 1 mg oral tablet 1 mg, 1, tablet, By Mouth, Daily, # 90 tablet, Refills 4, Tot. Refills 4, Maintenance, 10/27/21 10:40:00 EDT, Route to Pharmacy Electronically, [facility], Partial fill upon patient request if the prescription is for a schedule II opioid drug.... Start Date: 10/27/21 Stop Date: 01/20/23 Status: Orderedfurosemide 20 mg oral tablet 1, tablet, By Mouth, Daily, # 30 tablet, Refills 0, Route to Pharmacy Electronically, [facility], 175, cm, 01/06/22 10:34:00 EDT, Height, 78.3, kg, 12/26/21 19:05:00 EDT, Dry Weight Start Date: 01/21/22 Status: OrderedhydrOXYzine hydrochloride 25 mg oral tablet 1 TO 2 TABLETS, By Mouth, 3 times a day, PRN NEEDED FOR ANXIETY (VIAL), # 60 tablet, 0 Refills, [facility], 175, cm, 01/06/22 10:34:00 EDT, Height, 78.3, kg, 12/26/21 19:05:00 EDT, Dry Weight Start Date: 01/28/22 Status: Orderedlactulose 10 gm/15 ml oral syrup See Instructions, TAKE 30ML BY MOUTH THREE TIMES DAILY NEEDED TO ACHEIVE 3-4 BOWL MOVEMENTS PER DAY, # 3,000 mL, 10 Refills, [facility], 30, TAKE 30ML BY MOUTH THREE TIMES DAILY NEEDED TOACHEIVE 3-4 BOWL MOVEMENTS PER DAY, 174, cm, 02/12... Start Date: 07/02/21 Status: Orderedlidocaine 0.5% topical gel 1 application, Topically, 3 times a day, # 120 Gm, 0 Refills, Acute 12/30/22 17:23:00 EDT, 12/30/21 17:23:00 EDT, Gel, [facility], Partial fill upon patient request if the prescription is for aschedule II opioid drug., 1 application Topically... Start Date: 12/30/21 Stop Date: 12/30/22 Status: OrderedLidoderm 5% film 1 patch, Topically, Daily, remove patches after 12 hours NSAIDS contraindicated High dose tylenol contraindicated, # 30 patch, 5 Refills, Maintenance, 12/26/21 9:33:00 EDT, [facility], Partial fill upon patient request if the prescription i... Start Date: 12/26/21 Status: Orderedmagnesium oxide 400 mg oral tablet 1 tablet, By Mouth, 2 times a day, # 60 tablet, 0 Refills, [facility], 175, cm, 01/06/22 10:34:00 EDT, Height, 78.3, kg, 12/26/21 19:05:00 EDT, Dry Weight Start Date: 01/21/22 Status: OrderedMelatonin 3 mg oral tablet 1 tablet, By Mouth, Daily at bedtime, PRN NEEDED FOR INSOMNIA (PACKAGE IN TRAY), # 60 tablet, 5 Refills, Maintenance, 06/02/21 16:17:00 EST, [facility], 28, 1 tablet By Mouth Daily [...] Refills, Maintenance, 01/28/22 10:17:00 EDT, ER Tablet, [facility], Partial fill upon patient request if the prescription is for a schedule IIopioid drug., 175, cm, 01/06/22 10:34:00 EDT, Hei... Start Date: 01/28/22 Stop Date: 03/29/22 Status: Orderedpyridoxine 50 mg oral tablet 50 mg, 1, tablet, By Mouth, Daily, for 90 days, # 90 tablet, Refills 4, Tot. Refills 4, Acute 01/15/23 11:42:00 EDT, 10/22/21 11:42:00 EDT, Route to Pharmacy Electronically, [facility], Partialfill upon patient request if the prescription is... Start Date: 10/22/21 Stop Date: 01/15/23 Status: OrderedR aircast ankle-stirrup support brace R aircast ankle-stirrup support brace, See Instructions, # 1 each, Refills 0, Tot. Refills 0, Maintenance, Dx: R inversion ankle sprain s93.409a, 01/06/22 12:31:00 EDT, Supply Start Date: 01/06/22 Status: DgsognaGfs-A-Xtwy oral tablet 1 tablet, By Mouth, Daily, # 90 tablet, 9 Refills, [facility], 28, TAKE 1 TABLET BY MOUTH [...] Replace Required Details, Route to Pharmacy Electronically, [facility], 170, cm,... Start Date: 12/26/21 Status: OrderedVitamin B1 100 mg oral tablet 1, tablet, By Mouth, Daily, # 90 tablet, Refills 0, Route to Pharmacy Electronically, [facility], 170, cm, 11/12/21 10:02:00 EDT, Height, 78, kg, 11/04/21 12:03:00 EDT, Dry Weight Start Date: 12/24/21 Status: OrderedXifaxan 550 mg oral tablet 1 tablet, By Mouth, 2 times a day, # 60 tablet, 2 Refills, [facility], 175, cm, 01/06/22 10:34:00 EDT, Height, [...] Active Vitamin D insufficiency(Confirmed) 08/16/12 Active 1refer [id number] HEP C,b; immune HEP A,3r/o slvcmlxeccuaslsj5ulxwej2kcprsanc counseling6? [id number] RF ANCA,normal immunofixation,8lumbar puncture November 2011,neg lymenormal IGA neg SSA ,SSBnormal methylmalonic acid homocyseine9 legally blind;[id number] echo November 2014 Social History Social History Type Response Smoking Status 10 or more cigarettes (1/2 p ack or more)/day in last 30 days entered on: 02/04/19 Sex
--- OUTSIDE RECORDS SUMMARY | 2022-03-14 03:11 | XMS_ITS | Continuity of Care Document ---
:1975 Author Organization [facility] Address [address] [place] [address]- Care Team Providers Name Role Phone Jany Baig DO Primary Care Physician Encounter [facility] Date(s): 06/18/20 - 07/18/20 [facility] [address] [place] [address]- Allergies, Adverse Reactions, Alerts Substance Reaction Severity Status ibuprofen1 Hx of GI Bleed Active aspirin2 Hx GI Bleed Active Tylenol3 Cirrhosis Active NSAIDs Active 1pt advised not to take NSAIDs or Tylenol due to underlying liver disease. Also had GI side effects when took too much aspirin in the past.2pt took too much in the past and had GI side [id number] advised not to take d/t underlying liver disease Immunizations Given and Recorded Vaccine Date Status Refusal Reason Hepatitis B Vaccine (old term) 10/09/19 Recorded Hepatitis B Vaccine (old term)1 09/08/12 Given Hepatitis B Vaccine (old term) 08/09/12 Given tetanus/diphtheria/pertussis, acel(Tdap) 06/22/18 Given tetanus/diphtheria/pertussis, acel(Tdap) 11/25/15 Given influenza virus vaccine, inactivated 02/12/18 Recorded influenza virus vaccine, inactivated2 04/29/17 Given influenza virus vaccine, inactivated 04/15/16 Given influenza virus vaccine, inactivated 03/16/15 Given influenza virus vaccine, inactivated 03/12/14 Given influenza virus vaccine, inactivated3 02/28/13 Given pneumococcal 23-valent vaccine 03/16/15 Given hepatitis B adult vaccine4 02/28/13 Given Pneumococcal Vaccine (oldterm) 2/19/13 Given Tet/diphth/pertussis, acel (oldterm) 08/02/12 Given 1Admin Note: #22Result Comment: [04/29/2017] [id number] Note: [id number] Admin Note: 3 RDINJ Medications baclofen 10 mg oral tablet 10 mg, 1, tablet, By Mouth, 3 times a day, pt needs to schedule appt, # 90 tablet, Refills 0, Tot. Refills 0, Maintenance, 07/18/20 17:30:00 EST, Route to Pharmacy Electronically, [facility], 175, cm, 04/02/20 0:35:00 EDT, Height, 100, kg, ... Start Date: 07/18/20 Stop Date: 08/17/20 Status: Orderedchantix 1mg tablet 1 tablet, By Mouth, 2 times a day, for 12 week(s), neeeds to schedule appt, # 56 tablet, 0 Refills, Acute 09/18/20 11:11:00 EDT, 06/26/20 11:11:00 EST, [facility], 175, cm, 04/02/20 0:35:00 EDT, Height, 100, kg, 04/02/20 0:35:00 EDT, Dry Weight Start Date: 06/26/20 Stop Date: 09/18/20 Status: Orderedchantix 1mg tablet 1 tablet, By Mouth, 2 times a day, for 12 week(s), # 56 tablet, 0 Refills, Acute, 05/21/20 12:54:00 EST, [facility], 175, cm, 04/02/20 0:35:00 EDT, Height, 100, kg, 04/02/20 0:35:00 EDT, Dry Weight Start Date: 05/21/20 Stop Date: 08/13/20 Status: OrderedCo Q-10 100 mg oral capsule 1 capsule, By Mouth, 4 times a day, # 120 capsule, 11 Refills, Maintenance, 11/21/19 10:36:00 EDT, [facility] #[id number], 175, cm, 08/24/19 14:14:00 EDT, Height, 81.2, kg, 02/04/19 1:40:00 EDT, Dry Weight Start Date: 11/21/19 Stop Date: 11/15/20 Status: OrderedEngerix-B 20 mcg/mL intramuscular suspension = 20 mcg, Intramuscular, Every 30 days, rpt at 1 and 6 months, # 1 mL, 2 Refills, Maintenance, 11/02/19 9:02:00 EDT, Suspension, [facility] #[id number], 175, cm, 08/24/19 14:14:00 EDT, Height, 81.2, kg, 02/04/19 1:40:00 EDT, Dry Weight Start Date: 11/02/19 Status: Orderedfluticasone 50 mcg/inh nasal spray See Instructions, SPRAY 1 SPRAY INTO EACH NOSTRIL TWICE A DAY, # 16 Gm, 5 Refills, 07/09/20 11:38:00EST, [facility], 30, SPRAY 1 SPRAY INTO EACH NOSTRIL TWICE A DAY, 175, cm, 04/02/20 0:35:00 EDT, Height, 100, kg, 04/02/20 0:35:00 EDT, Dry We... Start Date: 07/09/20 Status: Orderedgabapentin 600 mg oral tablet 1 tablet, By Mouth, 4 times a day, pt needs to schedule appt, # 120 tablet, 0 Refills, Maintenance, 07/18/20 17:30:00 EST, [facility], 175, cm, 04/02/20 0:35:00 EDT, Height, 100, kg, 04/02/20 0:35:00 EDT, Dry Weight Start Date: 07/18/20 Status: OrderedhydrOXYzine hydrochloride 25 mg oral tablet 1 TO 2 TABLETS, By Mouth, 3 times a day, PRN NEEDED FOR ANXIETY (VIAL), pt needs to schedule appt, # 60 tablet, 1 Refills, Maintenance, 07/18/20 17:31:00 EST, [facility], 175, cm, 04/02/20 0:35:00 EDT, Height, 100, kg, 04/02/20 0:35:00 EDT,... Start Date: 07/18/20 Status: Orderedlactulose 10 gm/15 ml oral syrup 30 mL = 20 Gm, By Mouth, 3 times a day, PRN Other, for 30 days, PRN to acheive 3-4 BMs per day fill in prefilled syringes, # 3,000 mL, 11 Refills, Acute 11/25/20 16:37:00 EDT, 12/01/19 16:37:00 EDT, Syrup, [facility], re sent from 10/04/17, 30... Start Date: 12/01/19 Stop Date: 11/25/20 Status: Orderedlactulose 10 gm/15 ml oral syrup 30 mL = 20 Gm, By Mouth, 3 times a day, 0 Refills, Maintenance, 02/06/19 10:33:08 EDT, Syrup Start Date: 02/06/19 Status: Orderedlactulose 10 gm/15 ml oral syrup 30 mL = 20 Gm, By Mouth, 3 times a day, PRN Other, titrate to 3-4 soft bowel motions per day, 0 Refills, Maintenance, 02/06/19 10:33:12 EDT, Syrup Start Date: 02/06/19 Status: Orderedmelatonin 3 mg oral tablet 1 tablet = 3 mg, By Mouth, Daily at bedtime, PRN for insomnia, # 60 tablet, 4 Refills, Maintenance, 07/18/20 17:30:00 EST, Tablet, [facility], 175, cm, 04/02/20 0:35:00 EDT, Height, 100, kg, 04/02/20 0:35:00 EDT, Dry Weight Start Date: 07/18/20 Status: OrderedMelatonin 3 mg oral tablet 1 tablet = 3 mg, By Mouth, Daily at bedtime, PRN for insomnia, # 60 tablet, 0 Refills, Maintenance, 06/26/19 20:34:00 EST, Tablet Start Date: 06/26/19 Status: Orderedmupirocin 2% topical ointment See Instructions, APPLY TOPICALLY THREE TIMES DAILY (APPLY A THIN FILM), # 22 Gm, 0 Refills, Maintenance, 04/16/20 14:45:00 EST, [facility] #[id number], 8, APPLY TOPICALLY THREE TIMES DAILY (APPLY A THIN FILM), 175, cm, 04/02/20 0:35:00 EDT, Height, 100,... Start Date: 04/16/20 Status: Orderedmupirocin 2% topical ointment See Instructions, APPLY TOPICALLY THREE TIMES DAILY (APPLY A THIN FILM), # 22 Gm, 0 Refills, Acute, [facility], 8, APPLY TOPICALLY THREE TIMES DAILY (APPLY A THIN FILM), 175, cm, 04/02/20 0:35:00 EDT, Height, 100, kg, 04/02/20 0:35:00 EDT, Dry... Start Date: 07/18/20 Status: Orderednaltrexone 50 mg oral tablet 1 tablet = 50 mg, By Mouth, Daily, through clean slate, # 30 tablet, 0 Refills, Maintenance, 05/10/18 9:30:24 EST, Tablet Start Date: 05/10/18 Status: OrderedOXcarbazepine 300 mg oral tablet 450 mg, 2 times a day, Refills 0, Maintenance, 02/29/20 15:01:00 EDT Start Date: 02/29/20 Status: Orderedpantoprazole 40 mg oral delayed release tablet 1 tablet, By Mouth, 2 times a day, # 60 tablet, 2 Refills, Maintenance, 07/09/20 11:38:00 EST, 175, cm, 04/02/20 0:35:00 EDT, Height, 100, kg, 04/02/20 0:35:00 EDT, Dry Weight Start Date: 07/09/20 Status: Orderedsertraline 100 mg oral tablet 1 tablet = 100 mg, By Mouth, Daily, combine with 50mg tab to equal 150mg daily, # 90 tablet, 1 Refills, Maintenance, 10/06/19 15:57:00 EDT, Tablet, [facility], 175, cm, 08/24/19 14:14:00 EDT, Height, 81.2, kg, 02/04/19 1:40:00 EDT, Dry Weight Start Date: 10/06/19 Status: Orderedsertraline 50 mg oral tablet 1 tablet, By Mouth, Daily, TAKE ALONG WITH A 100MG TABLET to equal 150mg daily, # 90 tablet, 1 Refills, Maintenance, 10/06/19 15:57:00 EDT, [facility], 175, cm, 08/24/19 14:14:00 EDT, Height, 81.2, kg, 02/04/19 1:40:00 EDT, Dry Weight Start Date: 10/06/19 Status: Orderedsildenafil 50 mg oral tablet 1 tablet = 50 mg, By Mouth, Daily, PRN erectile dysfunction, 1 hour before sexual activity, # 6 tablet, 5 Refills, Maintenance, 03/11/20 14:37:00 EDT, Tablet, [facility]acy #[id number], 175, cm, 08/24/19 14:14:00 EDT, Height, 81.2, kg, 02/04/19 1:40:00 EDT,... Start Date: 03/11/20 Status: JjeulofFdx-C-Rdyj oral tablet 1 tablet, By Mouth, Daily, # 90 tablet, 1 Refills, Maintenance, 05/21/20 9:35:00 EST, [facility], 1 tablet By Mouth Daily, 175, cm, 04/02/20 0:35:00 EDT, Height, 100, kg, 04/02/20 0:35:00 EDT, Dry Weight Start Date: 05/21/20 Status: NdujkgnQhe-R-Jwaj oral tablet See Instructions, TAKE 1 TABLET BY MOUTH ONCE A DAY, # 30 tablet, 10 Refills, Maintenance, [facility], 28, TAKE 1 TABLET BY MOUTH ONCE A DAY, 175, cm, 04/02/20 0:35:00 EDT, Height, 100, kg, 04/02/20 0:35:00 EDT, Dry Weight Start Date: 07/18/20 Status: Orderedthermometer R50.9 thermometer R50.9, See Instructions, # 1 each, Refills 0, Tot. Refills 0, Maintenance, use as directed, 06/13/18 10:30:58 EST, Compound Start Date: 06/13/18 Status: OrderedtraZODone 50 mg oral tablet 50 mg, 1, tablet, By Mouth, Daily at bedtime, # 30 tablet, Refills 0, Maintenance, 02/29/20 15:01:00EDT Start Date: 02/29/20 Status: OrderedVitamin B1 100 mg oral tablet 1, tablet, By Mouth, Daily, # 90 tablet, Refills 3, Tot. Refills 3, Maintenance, 09/27/19 8:51:00 EDT, Route to Pharmacy Electronically, [facility], 175, cm, 08/24/19 14:14:00 EDT, Height, 81.2, kg, 02/04/19 1:40:00 EDT, Dry Weight Start Date: 09/27/19 Status: OrderedXifaxan 550 mg oral tablet 1 tablet, By Mouth, 2 times a day, # 60 tablet, 0 Refills, Maintenance, 04/16/20 14:45:00 EST, [id number], 175, cm, 04/02/20 0:35:00 EDT, Height, 100, kg, 04/02/20 0:35:00 EDT, Dry Weight Start Date: 04/16/20 Status: OrderedXifaxan 550 mg oral tablet See Instructions, TAKE 1 TABLET BY MOUTH TWICE A DAY, # 60 tablet, 0 Refills, Maintenance, [facility], 175, cm, 04/02/20 0:35:00 EDT, Height, 100, kg, 04/02/20 0:35:00 EDT, Dry Weight Start Date: 07/18/20 Status: Ordered Problem List Condition Effective Dates [...] Hepatic encephalopathy(Confirmed) Active ED (erectile dysfunction)(Confirmed) Active Migraine(Confirmed) 08/02/12 Active Anxiety and depression; admission to Active [facility] in 06/2015(Confirmed) Neuropathy(Confirmed)6 Active ANA LUISA (obstructive sleep Active apnea)(Confirmed) Sherie's Optic neuropathy(Confirmed)7, Active 8, 9 Overweight(Confirmed) Active Heart murmur, systolic(Confirmed)10 Active Vitamin D insufficiency(Confirmed) 08/16/12 Active 1refer bcgyw1lrm HEP C,b; immune HEP A,3r/o xpafeefyvefzvhct0fsnshg2ccviwuwd counseling6? [id number] RF ANCA,normal immunofixation,8lumbar puncture November 2011,neg lymenormal IGA neg SSA ,SSBnormal methylmalonic acid homocyseine9 legally blind;[id number] echo November 2014 Social History Social History Type Response Smoking Status 10 or more cigarettes (1/2 p ack or more)/day in last 30 days entered on: 02/04/19 Sex
--- OUTSIDE RECORDS SUMMARY | 2022-03-14 03:11 | XMS_ITS | Continuity of Care Document ---
:1975 Author Organization [facility] Address [address] [place] [id number]- Care Team Providers Name Role Phone Jany Baig DO Primary Care Physician Encounter [facility] Date(s): 05/17/20 - 06/16/20 [facility] [address] [place] [id number]- Attending Physician: Venice Salmon Admitting Physician: Venice Salmon Referring Physician: Venice Salmon Allergies, Adverse Reactions, Alerts Substance Reaction Severity Status ibuprofen1 Hx of GI Bleed Active aspirin2 Hx GI Bleed Active Tylenol3 Cirrhosis Active NSAIDs Active 1pt advised not to take NSAIDs or Tylenol due to underlying liver disease. Also had GI side effects when took too much aspirin in the past.2pt took too much in the past and had GI side sumwbel2ep advised not to take d/t underlying liver [...] 08/02/12 Given 1Admin Note: #22Result Comment: [04/29/2017] [id number] Note: [email or web address] Admin Note: 3 RDINJ Medications baclofen 10 mg oral tablet 10 mg, 1, tablet, By Mouth, 3 times a day, # 90 tablet, Refills 4, Tot. Refills 4, Maintenance, 02/16/20 17:55:00 EDT, Route to Pharmacy Electronically, [facility], 175, cm, 08/24/19 14:14:00 EDT, Height, 81.2, kg, 02/04/19 1:40:00 EDT, Dry We... Start Date: 02/16/20 Stop Date: 07/15/20 Status: Orderedchantix 1mg tablet 1 tablet, By Mouth, 2 times a day, for 12 week(s), # 56 tablet, 0 Refills, Acute, 05/21/20 12:54:00 EST, [facility], 175, cm, 04/02/20 0:35:00 EDT, Height, 100, kg, 04/02/20 0:35:00 EDT, Dry Weight Start Date: 05/21/20 Stop Date: 08/13/20 Status: OrderedCo Q-10 100 mg oral capsule 1 capsule, By Mouth, 4 times a day, # 120 capsule, 11 Refills, Maintenance, 11/21/19 10:36:00 EDT, [facility]/pharmacy #[id number], 175, cm, 08/24/19 14:14:00 EDT, Height, 81.2, kg, 02/04/19 1:40:00 EDT, Dry Weight Start Date: 11/21/19 Stop Date: 11/15/20 Status: OrderedEngerix-B 20 mcg/mL intramuscular suspension = 20 mcg, Intramuscular, Every 30 days, rpt at 1 and 6 months, # 1 mL, 2 Refills, Maintenance, 11/02/19 9:02:00 EDT, Suspension, [facility]/pharmacy #[id number], 175, cm, 08/24/19 14:14:00 EDT, Height, 81.2, kg, 02/04/19 1:40:00 EDT, Dry Weight Start Date: 11/02/19 Status: Orderedfluticasone 50 mcg/inh nasal spray See Instructions, SPRAY 1 SPRAY INTO EACH NOSTRIL TWICE A DAY, # 16 Gm, 5 Refills, 01/26/20 9:52:00 EDT, [facility], 30, SPRAY 1 SPRAY INTO EACH NOSTRIL TWICE A DAY, 175, cm, 08/24/19 14:14:00 EDT, Height, 81.2, kg, 02/04/19 1:40:00 EDT, Dry W... Start Date: 01/26/20 Status: Orderedgabapentin 600 mg oral tablet 1 tablet, By Mouth, 4 times a day, # 120 tablet, 2 Refills, Maintenance, 05/21/20 12:54:00 EST, [facility], 175, cm, 04/02/20 0:35:00 EDT, Height, 100, kg, 04/02/20 0:35:00 EDT, Dry Weight Start Date: 05/21/20 Status: OrderedhydrOXYzine hydrochloride 25 mg oral tablet 1 TO 2 TABLETS, By Mouth, 3 times a day, PRN NEEDED FOR ANXIETY (VIAL), # 60 tablet, 1 Refills, Acute, 05/21/20 12:54:00 EST, [facility], 175, cm, 04/02/20 0:35:00 EDT, Height, 100, kg, 04/02/20 0:35:00 EDT, Dry Weight Start Date: 05/21/20 Status: Orderedlactulose 10 gm/15 ml oral syrup 30 mL = 20 Gm, By Mouth, 3 times a day, PRN Other, for 30 days, PRN to acheive 3-4 BMs per day fill in prefilled syringes, # 3,000 mL, 11 Refills, Acute 11/25/20 16:37:00 EDT, 12/01/19 16:37:00 EDT, Syrup, [facility], re sent from 10/04/17, 30... Start [...] insomnia, # 60 tablet, 4 Refills, Maintenance, 10/06/19 16:16:00 EDT, Tablet, [facility], 175, cm, 08/24/19 14:14:00 EDT, Height, 81.2, kg, 02/04/19 1:40:00 EDT, Dry Weight Start Date: 10/06/19 Status: OrderedMelatonin 3 mg oral tablet 1 tablet = 3 mg, By Mouth, Daily at bedtime, PRN for insomnia, # 60 tablet, 0 Refills, Maintenance, 06/26/19 20:34:00 EST, Tablet Start Date: 06/26/19 Status: Orderedmupirocin 2% topical ointment See Instructions, APPLY TOPICALLY THREE TIMES DAILY (APPLY A THIN FILM), # 22 Gm, 0 Refills, Maintenance, 04/16/20 14:45:00 EST, [facility]/pharmacy #[id number], 8, APPLY TOPICALLY THREE TIMES DAILY (APPLY A THIN FILM), 175, cm, 04/02/20 0:35:00 EDT, Height, 100,... Start Date: 04/16/20 Status: Orderednaltrexone 50 mg oral tablet 1 [...] day, # 60 tablet, 2 Refills, Maintenance, 04/16/20 11:23:00 EST, 175, cm, 04/02/20 0:35:00 EDT, Height, 100, kg, 04/02/20 0:35:00 EDT, Dry Weight Start Date: 04/16/20 Status: Orderedsertraline 100 mg oral tablet 1 tablet = 100 mg, By Mouth, Daily, combine with 50mg tab to equal 150mg daily, # 90 tablet, 1 Refills, Maintenance, 10/06/19 15:57:00 EDT, Tablet, [facility], 175, cm, 08/24/19 14:14:00 EDT, Height, 81.2, kg, 02/04/19 1:40:00 EDT, Dry Weight Start Date: 10/06/19 Status: Orderedsertraline 50 mg oral tablet 1 tablet, By Mouth, Daily, TAKE ALONG WITH A 100MG TABLET to equal 150mg daily, # 90 tablet, 1 Refills, Maintenance, 10/06/19 15:57:00 EDT, [facility], 175, cm, 08/24/19 14:14:00 EDT, Height, 81.2, kg, 02/04/19 1:40:00 EDT, Dry Weight Start Date: 10/06/19 Status: Orderedsildenafil 50 mg oral tablet 1 tablet = 50 mg, By Mouth, Daily, PRN erectile dysfunction, 1 hour before sexual activity, # 6 tablet, 5 Refills, Maintenance, 03/11/20 14:37:00 EDT, Tablet, [facility]/pharmacy #[id number], 175, cm, 08/24/19 14:14:00 EDT, Height, 81.2, kg, 02/04/19 1:40:00 EDT,... Start Date: 03/11/20 Status: NixqwdeFks-P-Pmtp oral tablet 1 tablet, By Mouth, Daily, # 90 tablet, 1 Refills, Maintenance, 05/21/20 9:35:00 EST, [facility], 1 tablet By Mouth Daily, 175, cm, 04/02/20 0:35:00 EDT, Height, 100, kg, 04/02/20 0:35:00 EDT, Dry Weight Start Date: 05/21/20 Status: Orderedthermometer R50.9 thermometer R50.9, See Instructions, [...] 09/27/19 8:51:00 EDT, Route to Pharmacy Electronically, [facility], 175, cm, 08/24/19 14:14:00 EDT, Height, 81.2, kg, 02/04/19 1:40:00 EDT, Dry Weight Start Date: 09/27/19 Status: OrderedXifaxan 550 mg oral tablet 1 tablet, By Mouth, 2 times a day, # 60 tablet, 0 Refills, Maintenance, 04/16/20 14:45:00 EST, [facility]/pharmacy #[id number], 175, cm, 04/02/20 0:35:00 EDT, Height, 100, kg, 04/02/20 0:35:00 EDT, Dry Weight Start Date: 04/16/20 Status: Ordered Problem List Condition Effective Dates [...] Active Vitamin D insufficiency(Confirmed) 08/16/12 Active 1refer ncmfx1exs HEP C,b; immune HEP A,3r/o upcsnbjdzfhnqzut6nihdis5wrdsuyws counseling6? yfecsao3xoq RF ANCA,normal immunofixation,8lumbar puncture November 2011,neg lymenormal IGA neg SSA ,SSBnormal methylmalonic acid homocyseine9 legally blind;[id number] echo November 2014 Social History Social History Type Response Smoking Status 10 or more cigarettes (1/2 p ack or more)/day in last 30 days entered on: 02/04/19 Sex
--- OUTSIDE RECORDS SUMMARY | 2022-03-14 03:11 | XMS_ITS | Continuity of Care Document ---
:[address] [facility] Address [address] [place] [address]- Care Team Providers Name Role Phone Jany Baig DO Primary Care Physician Encounter [facility] Date(s): 06/24/21 - 07/01/21 [facility] [address] [place] [address]- Attending Physician: Jany Baig DO Allergies, Adverse Reactions, Alerts Substance Reaction Severity Status ibuprofen1 Hx of GI Bleed Active aspirin2 Hx GI Bleed Active Tylenol3 Cirrhosis Active NSAIDs Active 1pt advised not to take NSAIDs or Tylenol due to underlying liver disease. Also had GI side effects when took too much aspirin in the past.2pt took too much in the past and had GI side ofvlphb5av advised not to take d/t underlying liver disease Immunizations Given and Recorded Vaccine Date Status Refusal Reason SARS-CoV-2 (COVID-19) mRNA-1273 vaccine 04/08/21 Recorded SARS-CoV-2 (COVID-19) mRNA-1273 vaccine 03/10/21 Recorded influenza virus vaccine, inactivated 03/10/21 Recorded influenza virus vaccine, inactivated 03/01/20 Recorded influenza virus vaccine, inactivated 02/12/18 Recorded influenza virus vaccine, inactivated1 04/29/17 Given influenza virus vaccine, inactivated 04/15/16 Given influenza virus vaccine, inactivated 03/16/15 Given influenza virus vaccine, inactivated 03/12/14 Given influenza virus vaccine, inactivated2 02/28/13 Given hepatitis B adult vaccine 03/01/20 Recorded hepatitis B adult vaccine3 02/28/13 Given Hepatitis B Vaccine (old term) 10/09/19 Recorded Hepatitis B Vaccine (old term)4 3/28/13 Given Hepatitis B Vaccine (old term) 08/09/12 Given tetanus/diphtheria/pertussis, acel(Tdap) 06/22/18 Given tetanus/diphtheria/pertussis, acel(Tdap) 11/25/15 Given pneumococcal 23-valent vaccine 03/16/15 Given Pneumococcal Vaccine (oldterm) 08/02/12 Given Tet/diphth/pertussis, acel (oldterm) 08/02/12 Given 1Result Comment: [04/29/2017] [id number] Note: [id number] Note: 3 [id number] Note: #2 Medications baclofen 10 mg oral tablet 1, tablet, By Mouth, 3 times a day, # 90 tablet, Refills 0, Route to Pharmacy Electronically, [facility], 174, cm, 02/27/21 15:17:00 EDT, Height, 81, kg, 02/27/21 14:06:00 EDT, Dry Weight Start Date: 06/16/21 Status: Orderedchantix 1mg tablet 1 tablet, By Mouth, 2 times a day, # 56 tablet, 0 Refills, Acute, 11/22/20 16:13:00 EDT, [facility], 178, cm, 11/12/20 15:32:00 EDT, Height, 84.9, kg, 08/31/20 1:07:00 EDT, Dry Weight Start Date: 11/22/20 Status: OrderedCo Q-10 100 mg oral capsule See Instructions, TAKE 1 CAPSULE BY MOUTH FOUR TIMES DAILY, # 120 capsule, 7 Refills, Maintenance, [facility], 178, cm, 10/22/20 13:17:00 EDT, Height, 84.9, kg, 08/31/20 1:07:00 EDT, Dry Weight Start Date: 11/01/20 Status: OrderedCo Q-10 100 mg oral capsule 1 capsule, By Mouth, 4 times a day, # 120 capsule, 11 Refills, Maintenance, 11/21/19 10:36:00 EDT, [facility]/pharmacy #[id number], 175, cm, 08/24/19 14:14:00 EDT, Height, 81.2, kg, 02/04/19 1:40:00 EDT, Dry Weight Start Date: 11/21/19 Stop Date: 11/15/20 Status: Orderedfluticasone 50 mcg/inh nasal spray See Instructions, USE 1 SPRAY INTO EACH NOSTRIL TWICE A DAY, # 16 Gm, 5 Refills, Maintenance, [facility], 30, USE 1 SPRAY INTO EACH NOSTRIL TWICE A DAY, 178, cm, 01/07/21 17:59:00 EDT, Height, 81.4, kg, 12/03/20 13:52:00 EDT, Dry Weight Start Date: 01/17/21 Status: Orderedgabapentin 600 mg oral tablet 1 tablet, By Mouth, 4 times a day, # 120 tablet, 0 Refills, [facility], 174, cm, 02/27/21 15:17:00 EDT, Height, 81, kg, 02/27/21 14:06:00 EDT, Dry Weight Start Date: 06/16/21 Status: OrderedhydrOXYzine hydrochloride 25 mg oral tablet 1 TO 2 TABLETS, By Mouth, 3 times a day, PRN NEEDED FOR ANXIETY (VIAL), # 60 tablet, 0 Refills, [facility], 174, cm, 02/27/21 15:17:00 EDT, Height, 81, kg, 02/27/21 14:06:00 EDT, Dry Weight Start Date: 06/16/21 Status: OrderedMelatonin 3 mg oral tablet 1 tablet, By Mouth, Daily at bedtime, PRN NEEDED FOR INSOMNIA (PACKAGE IN TRAY), # 60 tablet, 5 Refills, Maintenance, 06/02/21 16:17:00 EST, [facility], 28, 1 tablet By Mouth Daily at bedtime,PRN: NEEDED FOR INSOMNIA (PACKAGE IN TRAY), 17... Start Date: 06/02/21 Status: OrderedOXcarbazepine 150 mg oral tablet Refills 0, Maintenance, 02/27/21 14:40:00 EDT, Partial fill upon patient request if the prescriptionis for a schedule II opioid drug. Start Date: 02/27/21 Status: OrderedOXcarbazepine 300 mg oral tablet Refills 0, Maintenance, 02/27/21 14:40:00 EDT, Partial fill upon patient request if the prescriptionis for a schedule II opioid drug. Start Date: 02/27/21 Status: Orderedpantoprazole 40 mg oral delayed release tablet 1 tablet, By Mouth, 2 times a day, # 60 tablet, 0 Refills, 174, cm, 02/27/21 15:17:00 EDT, Height, 81, kg, 02/27/21 14:06:00 EDT, Dry Weight Start Date: 06/16/21 Status: Orderedsertraline 100 mg oral tablet 1 tablet = 100 mg, By Mouth, Daily, combine with 50mg tab to equal 150mg daily, # 90 tablet, 1 Refills, Maintenance, 10/06/19 15:57:00 EDT, Tablet, [facility], 175, cm, 08/24/19 14:14:00 EDT, Height, 81.2, kg, 02/04/19 1:40:00 EDT, Dry Weight Start Date: 10/06/19 Status: Orderedsertraline 50 mg oral tablet 1 tablet, By Mouth, Daily, TAKE ALONG WITH A 100MG TABLET to equal 150mg daily, # 90 tablet, 1 Refills, Maintenance, 10/06/19 15:57:00 EDT, [facility], 175, cm, 08/24/19 14:14:00 EDT, Height, [...] 02/04/19 1:40:00 EDT,... Start Date: 03/11/20 Status: RczxapcDgw-G-Twri oral tablet See Instructions, TAKE 1 TABLET BY MOUTH ONCE A DAY, # 30 tablet, 10 Refills, Maintenance, [facility], 28, TAKE 1 TABLET BY MOUTH ONCE A DAY, 175, cm, 04/02/20 0:35:00 EDT, Height, 100, kg, 04/02/20 0:35:00 EDT, Dry Weight Start Date: 07/18/20 Status: Orderedtranexamic acid 650 mg oral tablet 1 tablet = 650 mg, By Mouth, Daily, # 21 tablet, 0 Refills, Maintenance, 10/22/20 17:52:00 EDT, Tablet, [facility]/pharmacy #[id number], Partial fill upon patient request if the prescription is for a schedule II opioid drug., 178, cm, 10/22/20 13:17:00 EDT, Height... Start Date: 10/22/20 Status: OrderedtraZODone 50 mg oral tablet See Instructions, TAKE 1 TO 2 TABLETS BY MOUTH AT BEDTIME (ONE DOSE IN VIAL), # 60 tablet, Refills 5, Instructions Replace Required Details, Route to Pharmacy Electronically, [facility], 174, cm, 02/11/21 12:09:00 EDT, Height, 86.6, kg, ... Start Date: 02/15/21 Status: OrderedVitamin B1 100 mg oral tablet 1, tablet, By Mouth, Daily, # 90 tablet, Refills 1, Route to Pharmacy Electronically, [facility], 174, cm, 02/27/21 15:17:00 EDT, Height, 81, kg, 02/27/21 14:06:00 EDT, Dry Weight Start Date: 06/16/21 Status: OrderedXifaxan 550 mg oral tablet 1 [...] Active Vitamin D insufficiency(Confirmed) 08/16/12 Active 1refer ofirm2ubw HEP C,b; immune HEP A,3r/o nokdkuwcpzwwqvev2nxekaj3sbxkhnhr counseling6? ibrvmxr7uyy RF ANCA,normal immunofixation,8lumbar puncture November 2011,neg lymenormal IGA neg SSA ,SSBnormal methylmalonic acid homocyseine9 legally blind;[id number] echo November 2014 Social History Social History Type Response Smoking Status 10 or more cigarettes (1/2 p ack or more)/day in last 30 days entered on: 02/04/19 Sex Male
--- OUTSIDE RECORDS SUMMARY | 2022-03-14 03:11 | XMS_ITS | Continuity of Care Document ---
:1975 Author Organization [facility] Address [address] [place] [address]- Care Team Providers Name Role Phone Jany Baig DO Primary Care Physician Encounter [facility] Date(s): 12/03/20 - 01/02/21 [facility] [address] [place] [address]- Allergies, Adverse Reactions, Alerts Substance Reaction Severity Status ibuprofen1 Hx of GI Bleed Active aspirin2 Hx GI Bleed Active Tylenol3 Cirrhosis Active NSAIDs Active 1pt advised not to take NSAIDs or Tylenol due to underlying liver disease. Also had GI side effects when took too much aspirin in the past.2pt took too much in the past and had GI side [id number] advised not to take d/t underlying liver [...] adult vaccine4 02/28/13 Given Pneumococcal Vaccine (oldterm) 08/02/12 Given Tet/diphth/pertussis, acel (oldterm) 08/02/12 Given 1Admin Note: #22Result Comment: [04/29/2017] [id number] Note: [email or web address] Admin Note: 3 RDINJ Medications baclofen 10 mg oral tablet 1, tablet, By Mouth, 3 times a day, # 90 tablet, Refills 0, Tot. Refills 0, Maintenance, 12/25/20 8:36:00 EDT, Route to Pharmacy Electronically, [facility], 178, cm, 12/03/20 13:52:00 EDT, Height, 81.4, kg, 12/03/20 13:52:00 EDT, Dry Weight Start Date: 12/25/20 Status: Orderedchantix 1mg tablet 1 tablet, By Mouth, 2 times a day, # 56 tablet, 0 Refills, Acute, 11/22/20 16:13:00 EDT, [facility], 178, cm, 11/12/20 15:32:00 EDT, Height, 84.9, kg, 08/31/20 1:07:00 EDT, Dry Weight Start Date: 11/22/20 Status: OrderedCo Q-10 100 mg oral capsule See Instructions, TAKE 1 CAPSULE BY MOUTH FOUR TIMES DAILY, # 120 capsule, 7 Refills, Maintenance, [facility], 178, cm, 10/22/20 13:17:00 EDT, Height, 84.9, kg, 08/31/20 1:07:00 EDT, Dry Weight Start Date: 11/01/20 Status: OrderedCo Q-10 100 mg oral capsule 1 capsule, By Mouth, 4 times a day, # 120 capsule, 11 Refills, Maintenance, 11/21/19 10:36:00 EDT, [facility]/pharmacy #[id number], 175, cm, 08/24/19 14:14:00 EDT, Height, 81.2, kg, 02/04/19 1:40:00 EDT, Dry Weight Start Date: 11/21/19 Stop Date: 11/15/20 Status: Orderedfluticasone 50 mcg/inh nasal spray See Instructions, SPRAY 1 SPRAY INTO EACH NOSTRIL TWICE A DAY, # 16 Gm, 5 Refills, 07/09/20 11:38:00EST, [facility], 30, SPRAY 1 SPRAY INTO EACH NOSTRIL TWICE A DAY, 175, cm, 04/02/20 0:35:00 EDT, Height, 100, kg, 04/02/20 0:35:00 EDT, Dry We... Start Date: 07/09/20 Status: Orderedgabapentin 600 mg oral tablet 1 tablet, By Mouth, 4 times a day, # 120 tablet, 0 Refills, Maintenance, 12/25/20 8:36:00 EDT, [facility], 178, cm, 12/03/20 13:52:00 EDT, Height, 81.4, kg, 12/03/20 13:52:00 EDT, Dry Weight Start Date: 12/25/20 Status: OrderedhydrOXYzine hydrochloride 25 mg oral tablet 1 TO 2 TABLETS, By Mouth, 3 times a day, PRN NEEDED FOR ANXIETY (VIAL), # 60 tablet, 3 Refills, Maintenance, 10/07/20 16:49:00 EDT, [facility], 178, cm, 08/31/20 11:25:00 EDT, Height, 84.9, kg, 08/31/20 1:07:00 EDT, Dry Weight Start Date: 10/07/20 Status: OrderedKeppra 500 mg oral tablet 1 tablet = 500 mg, By Mouth, 2 times a day, # 14 tablet, 0 Refills, Maintenance, 11/01/20 11:59:00 EDT, Tablet, [facility] 3, Partial fill upon patient request if the prescription is for a schedule II opioid drug., 178, cm, 10/22/20 13:17:... Start Date: 11/01/20 Stop Date: 11/08/20 Status: Orderedmelatonin 3 mg oral tablet 1 tablet = 3 mg, By Mouth, Daily at bedtime, PRN for insomnia, # 60 tablet, 4 Refills, Maintenance, 07/18/20 17:30:00 EST, Tablet, [facility], 175, cm, 04/02/20 0:35:00 EDT, Height, 100, kg, 04/02/20 0:35:00 EDT, Dry Weight Start Date: 07/18/20 Status: Orderedpantoprazole 40 mg oral delayed release tablet 1 tablet, By Mouth, 2 times a day, # 60 tablet, 2 Refills, Maintenance, 09/28/20 10:35:00 EDT, 178, cm, 08/31/20 11:25:00 EDT, Height, 84.9, kg, 08/31/20 1:07:00 EDT, Dry Weight Start Date: 09/28/20 Status: Orderedsertraline 100 mg oral tablet 1 tablet = 100 mg, By Mouth, Daily, combine with 50mg tab to equal 150mg daily, # 90 tablet, 1 Refills, Maintenance, 10/06/19 15:57:00 EDT, Tablet, [facility], 175, cm, 08/24/19 14:14:00 EDT, Height, 81.2, kg, 02/04/19 1:40:00 EDT, Dry Weight Start Date: 10/06/19 Status: Orderedsertraline 50 mg oral tablet 1 tablet, By Mouth, Daily, TAKE ALONG WITH A 100MG TABLET to equal 150mg daily, # 90 tablet, 1 Refills, Maintenance, 10/06/19 15:57:00 EDT, [facility], 175, cm, 08/24/19 14:14:00 EDT, Height, 81.2, kg, 02/04/19 1:40:00 EDT, Dry Weight Start Date: 10/06/19 Status: Orderedsildenafil 50 mg oral tablet 1 tablet = 50 mg, By Mouth, Daily, PRN erectile dysfunction, 1 hour before sexual activity, # 6 tablet, 5 Refills, Maintenance, 03/11/20 14:37:00 EDT, Tablet, [facility]/pharmacy #[id number], 175, cm, 08/24/19 14:14:00 EDT, Height, 81.2, kg, 02/04/19 1:40:00 EDT,... Start Date: 03/11/20 Status: MybcniqMdf-C-Ovhr oral tablet See Instructions, TAKE 1 TABLET BY MOUTH ONCE A DAY, # 30 tablet, 10 Refills, [facility], TAKE 1 TABLET BY MOUTH ONCE A DAY, 175, cm, 04/02/20 0:35:00 EDT, Height, 100, kg, 04/02/20 0:35:00 EDT, Dry Weight Start Date: 07/18/20 Status: OrderedtraMADol 50 mg oral tablet 1 tablet = 50 mg, By Mouth, Every 12 hours, PRN as needed for pain, 0 Refills, Maintenance, 08/30/2122:24:00 EDT, Tablet, Partial fill upon patient request if the prescription is for a schedule II opioid drug. Start Date: 08/30/20 Status: Orderedtranexamic acid 650 mg oral tablet 1 tablet = 650 mg, By Mouth, Daily, # 21 tablet, 0 Refills, Maintenance, 10/22/20 17:52:00 EDT, Tablet, [facility]/pharmacy #[id number], Partial fill upon patient request if the prescription is for a schedule II opioid drug., 178, cm, 10/22/20 13:17:00 EDT, Height... Start Date: 10/22/20 Status: OrderedtraZODone 50 mg oral tablet See Instructions, TAKE 1 TO 2 TABLETS BY MOUTH AT BEDTIME (ONE DOSE IN VIAL), # 60 tablet, Refills 3, Tot. Refills 3, 11/01/20 15:06:00 EDT, Instructions Replace Required Details, Route to Pharmacy Electronically, [facility], 178, cm, 10/22/20... Start Date: 11/01/20 Status: OrderedVitamin B1 100 mg oral tablet 1, tablet, By Mouth, Daily, # 90 tablet, Refills 2, Tot. Refills 0, Acute, 09/05/20 17:32:00 EDT, Route to Pharmacy Electronically, [facility], 178, cm, 08/31/20 11:25:00 EDT, Height, 84.9, kg,08/31/20 1:07:00 EDT, Dry Weight Start Date: 09/05/20 Status: OrderedXifaxan 550 mg oral tablet 1 tablet, By Mouth, 2 times a day, # 60 tablet, 0 Refills, Maintenance, 04/16/20 14:45:00 EST, [facility]/pharmacy #[id number], 175, cm, 04/02/20 0:35:00 EDT, Height, [...] Active Vitamin D insufficiency(Confirmed) 08/16/12 Active 1refer pdmfs6duw HEP C,b; immune HEP A,3r/o gupsknelqxdjrdvo2wrcyho3bkeijpyt counseling6? ybubjip2ntg RF ANCA,normal immunofixation,8lumbar puncture November 2011,neg lymenormal IGA neg SSA ,SSBnormal methylmalonic acid homocyseine9 legally blind;[id number] echo November 2014 Social History Social History Type Response Smoking Status 10 or more cigarettes (1/2 p ack or more)/day in last 30 days entered on: 02/04/19 Sex
--- OUTSIDE RECORDS SUMMARY | 2022-03-14 03:11 | XMS_ITS | Continuity of Care Document ---
:1975 Author Organization [facility] Address [address] [place] [id number]- Care Team Providers Name Role Phone Jany Baig DO Primary Care Physician Encounter [facility] [place] Date(s): 05/09/21 - 09/06/21 [facility] [address] [place] [id number]- Attending Physician: Cristofer Steiner MD Admitting Physician: Cristofer Steiner MD Referring Physician: Jany Baig DO Allergies, Adverse Reactions, [...] in the past and had GI side [id number] advised not to take d/t underlying liver [...] acel (oldterm) 08/02/12 Given 1Result Comment: [04/29/2017] [id number] Note: [id number] Note: 3 [id number] Note: #2 Medications acamprosate 333 mg oral delayed release tablet = 333 mg, By Mouth, 3 times a day with meals, 0 Refills, Maintenance, 08/28/21 10:29:00 EDT, Tablet,Partial fill upon patient request if the prescription is for a schedule II opioid drug. Start Date: 08/28/21 Status: OrderedCo Q-10 100 mg oral capsule 1 capsule, By Mouth, 4 times a day, # 120 capsule, 6 Refills, [facility], 174, cm, 02/27/21 15:17:00 EDT, Height, 81, kg, 02/27/21 14:06:00 EDT, Dry Weight Start Date: 07/08/21 Status: Orderedfluticasone 50 mcg/inh nasal spray See Instructions, USE 1 SPRAY INTO EACH NOSTRIL TWICE A DAY, # 16 Gm, 5 Refills, [facility],30, USE 1 SPRAY INTO EACH NOSTRIL TWICE A DAY, 174, cm, 07/14/21 8:16:00 EST, Height, 81, kg, 02/27/21 14:06:00 EDT, Dry Weight Start Date: 08/04/21 Status: OrderedhydrOXYzine hydrochloride 25 mg oral tablet 1 TO 2 TABLETS, By Mouth, 3 times a day, PRN NEEDED FOR ANXIETY (VIAL), # 60 tablet, 0 Refills, [facility], 174, cm, 08/14/21 14:21:00 EST, Height, 81, kg, 02/27/21 14:06:00 EDT, Dry Weight Start Date: 08/18/21 Status: Orderedlactulose 10 gm/15 ml oral syrup See Instructions, TAKE 30ML BY MOUTH THREE TIMES DAILY NEEDED TO ACHEIVE 3-4 BOWL MOVEMENTS PER DAY, # 3,000 mL, 10 Refills, [facility], 30, TAKE 30ML BY MOUTH THREE TIMES DAILY NEEDED TOACHEIVE 3-4 BOWL MOVEMENTS PER DAY, 174, cm, 02/12... Start Date: 07/02/21 Status: OrderedMelatonin 3 mg oral tablet 1 tablet, By Mouth, Daily at bedtime, PRN NEEDED FOR INSOMNIA (PACKAGE IN TRAY), # 60 tablet, 5 Refills, Maintenance, 06/02/21 16:17:00 EST, [facility], 28, 1 tablet By Mouth Daily at bedtime,PRN: NEEDED FOR INSOMNIA (PACKAGE IN TRAY), 17... Start Date: 06/02/21 Status: Orderedmethadone 10 mg oral tablet 3 tablet = 30 mg, By Mouth, Daily, 0 Refills, Maintenance, 08/28/21 10:24:00 EDT, Tablet, Partial fill upon patient request if the prescription is for a schedule II opioid drug. Start Date: 08/28/21 Status: OrderedMiraLax Powder 1 pack/packet = 17 Gm, By Mouth, 2 times a day, PRN Constipation, 0 Refills, Maintenance, 08/28/21 10:25:00 EDT, Powder, Partial fill upon patient request if the prescription is for a schedule II opioid drug. Start Date: 08/28/21 Status: Orderedpantoprazole 40 mg oral delayed release tablet See Instructions, TAKE 1 TABLET BY MOUTH TWICE A DAY, # 60 tablet, 2 Refills, 174, cm, 02/27/21 15:17:00 EDT, Height, 81, kg, 02/27/21 14:06:00 EDT, Dry Weight Start Date: 07/08/21 Status: OrderedrifAXIMin 550 mg oral tablet 1 tablet = 550 mg, By Mouth, 2 times a day, 0 Refills, Maintenance, 08/28/21 10:24:00 EDT, Tablet, Partial fill upon patient request if the prescription is for a schedule II opioid drug. Start Date: 08/28/21 Status: Orderedsertraline 50 mg oral tablet 3 tablet = 150 mg, By Mouth, Daily, 0 Refills, Maintenance, 08/28/21 10:29:00 EDT, Tablet, Partial fill upon patient request if the prescription is for a schedule II opioid drug. Start Date: 08/28/21 Status: GajbqxtZxj-C-Yilf oral tablet 1 tablet, By Mouth, Daily, # 90 tablet, 9 Refills, [facility], 28, TAKE 1 TABLET BY MOUTH ONCE A DAY, 174, cm, 07/14/21 8:16:00 EST, Height, 81, kg, 02/27/21 14:06:00 EDT, Dry Weight Start Date: 07/22/21 Status: OrderedtraZODone 50 mg oral tablet See Instructions, TAKE 1 TO 2 TABLETS BY MOUTH AT BEDTIME (ONE DOSE IN VIAL), # 60 tablet, Refills 0, Instructions Replace Required Details, Route to Pharmacy Electronically, [facility], 174, cm, 08/14/21 14:21:00 EST, Height, 81, kg, 02/27/21... Start Date: 08/18/21 Status: Orderedvarenicline 1mg tablet 1 tablet, By Mouth, 2 times a day, INSTR:TO START AFTER 0.5 MG TABS, # 56 tablet, 2 Refills, [id number], 172, cm, 08/28/21 23:35:00 EDT, Height, 85.4, kg, 08/20/21 16:20:00 EST, Dry Weight Start Date: 09/01/21 Status: OrderedVitamin B1 100 mg oral tablet 1, tablet, By Mouth, Daily, # 90 tablet, Refills 1, Route to Pharmacy Electronically, [facility], 174, cm, 02/27/21 15:17:00 EDT, Height, 81, kg, 02/27/21 14:06:00 EDT, Dry Weight Start Date: 06/16/21 Status: Ordered Problem List Condition Effective Dates [...] Active Vitamin D insufficiency(Confirmed) 08/16/12 Active 1refer hernx2ioa HEP C,b; immune HEP A,3r/o bohlhakkbtvqvhiu6upcwys9kefbkptq counseling6? uaznspn6ndu RF ANCA,normal immunofixation,8lumbar puncture November 2011,neg lymenormal IGA neg SSA ,SSBnormal methylmalonic acid homocyseine9 legally blind;[id number] echo November 2014 Social History Social History Type Response Smoking Status 10 or more cigarettes (1/2 p ack or more)/day in last 30 days entered on: 02/04/19 Sex Male
--- OUTSIDE RECORDS SUMMARY | 2022-03-14 03:11 | XMS_ITS | Continuity of Care Document ---
:1975 Author Organization [facility] Address [address] [place] [phone]- Care Team Providers Name Role Phone Jany Baig DO Primary Care Physician Encounter [facility] [place] Date(s): 08/06/20 - 08/06/[address] [address]- Encounter Diagnosis Alcohol intoxication (Final) - 08/06/20 Alcohol intoxication (Final) - 08/06/20 Discharge Disposition: A-D/C Home Attending Physician: Osei Rojas DO Admitting Physician: Osei Rojas DO Referring Physician: Not on Staff, Referring MD Allergies, Adverse Reactions, Alerts Substance Reaction Severity Status ibuprofen1 Hx of GI Bleed Active aspirin2 Hx GI Bleed Active Tylenol3 Cirrhosis Active NSAIDs Active 1pt advised not to take NSAIDs or Tylenol due to underlying liver disease. Also had GI side effects when took too much aspirin in the past.2pt took too much in the past and had GI side jxgamcc3po advised not to take d/t underlying liver [...] 08/02/12 Given 1Admin Note: #22Result Comment: [04/29/2017] [id number] Note: [email or web address] Admin Note: 3 RDINJ Medications baclofen 10 mg oral tablet 10 mg, 1, tablet, By Mouth, 3 times a day, pt needs to schedule appt, # 90 tablet, Refills 0, Tot. Refills 0, Maintenance, 07/18/20 17:30:00 EST, Route to Pharmacy Electronically, [facility], 175, cm, 04/02/20 0:35:00 EDT, Height, 100, kg, 10/... Start Date: 07/18/20 Stop Date: 08/17/20 Status: Orderedchantix 1mg tablet 1 tablet, By Mouth, 2 times a day, for 12 week(s), neeeds to schedule appt, # 56 tablet, 0 Refills, Acute 09/18/20 11:11:00 EDT, 06/26/20 11:11:00 EST, [facility], 175, cm, 04/02/20 0:35:00 EDT, Height, 100, kg, 04/02/20 0:35:00 EDT, Dry Weight Start Date: 06/26/20 Stop Date: 09/18/20 Status: Orderedchantix 1mg tablet 1 tablet, By Mouth, 2 times a day, for 12 week(s), # 56 tablet, 0 Refills, Acute, 05/21/20 12:54:00 EST, [facility], 175, cm, 04/02/20 0:35:00 EDT, Height, 100, kg, 04/02/20 0:35:00 EDT, Dry Weight Start Date: 05/21/20 Stop Date: 08/13/20 Status: OrderedCo Q-10 100 mg oral capsule 1 capsule, By Mouth, 4 times a day, # 120 capsule, 11 Refills, Maintenance, 11/21/19 10:36:00 EDT, [facility] #[id number], 175, cm, 08/24/19 14:14:00 EDT, Height, 81.2, kg, 02/04/19 1:40:00 EDT, Dry Weight Start Date: 11/21/19 Stop Date: 11/15/20 Status: OrderedEngerix-B 20 mcg/mL intramuscular suspension = 20 mcg, Intramuscular, Every 30 days, rpt at 1 and 6 months, # 1 mL, 2 Refills, Maintenance, 11/02/19 9:02:00 EDT, Suspension, [facility]/pharmacy #[id number], 175, cm, 08/24/19 14:14:00 EDT, Height, 81.2, kg, 02/04/19 1:40:00 EDT, Dry Weight Start Date: 11/02/19 Status: Orderedfluticasone 50 mcg/inh nasal spray See Instructions, SPRAY 1 SPRAY INTO EACH NOSTRIL TWICE A DAY, # 16 Gm, 5 Refills, 07/09/20 11:38:00EST, [facility], 30, SPRAY 1 SPRAY INTO EACH NOSTRIL TWICE A DAY, 175, cm, 04/02/20 0:35:00 EDT, Height, 100, kg, 04/02/20 0:35:00 EDT, Dry We... Start Date: 07/09/20 Status: Orderedgabapentin 600 mg oral tablet 1 tablet, By Mouth, 4 times a day, pt needs to schedule appt, # 120 tablet, 0 Refills, Maintenance, 07/18/20 17:30:00 EST, [facility], 175, cm, 04/02/20 0:35:00 EDT, Height, 100, kg, 04/02/20 0:35:00 EDT, Dry Weight Start Date: 07/18/20 Status: OrderedhydrOXYzine hydrochloride 25 mg oral tablet 1 TO 2 TABLETS, By Mouth, 3 times a day, PRN NEEDED FOR ANXIETY (VIAL), pt needs to schedule appt, # 60 tablet, 1 Refills, Maintenance, 07/18/20 17:31:00 EST, [facility], 175, cm, 04/02/20 0:35:00 EDT, Height, 100, kg, 04/02/20 0:35:00 EDT,... Start Date: 07/18/20 Status: Orderedlactulose 10 gm/15 ml oral syrup 30 mL = 20 Gm, By Mouth, 3 times a day, PRN Other, for 30 days, PRN to acheive 3-4 BMs per day fill in prefilled syringes, # 3,000 mL, 11 Refills, Acute 11/25/20 16:37:00 EDT, 12/01/19 16:37:00 EDT, Syrup, [facility], re sent from 10/04/17, 30... [...] 4 Refills, Maintenance, 07/18/20 17:30:00 EST, Tablet, [facility], 175, cm, 04/02/20 0:35:00 EDT, [...] 0 Refills, Maintenance, 04/16/20 14:45:00 EST, [facility]/pharmacy #[id number], 8, APPLY TOPICALLY THREE TIMES DAILY (APPLY A THIN FILM), 175, cm, 04/02/20 0:35:00 EDT, Height, 100,... Start Date: 04/16/20 Status: Orderedmupirocin 2% topical ointment See Instructions, APPLY TOPICALLY THREE TIMES DAILY (APPLY A THIN FILM), # 22 Gm, 0 Refills, Acute, [facility], 8, APPLY TOPICALLY THREE TIMES [...] 1 Refills, Maintenance, 10/06/19 15:57:00 EDT, Tablet, [facility], 175, cm, 08/24/19 14:14:00 EDT, Height, 81.2, kg, 02/04/19 1:40:00 EDT, Dry Weight Start Date: 10/06/19 Status: Orderedsertraline 50 mg oral tablet 1 tablet, By Mouth, Daily, TAKE ALONG WITH A 100MG TABLET to equal 150mg daily, # 90 tablet, 1 Refills, Maintenance, 10/06/19 15:57:00 EDT, [facility], 175, cm, 08/24/19 14:14:00 EDT, Height, 81.2, kg, 02/04/19 1:40:00 EDT, Dry Weight Start Date: 10/06/19 Status: Orderedsildenafil 50 mg oral tablet 1 tablet = 50 mg, By Mouth, Daily, PRN erectile dysfunction, 1 hour before sexual activity, # 6 tablet, 5 Refills, Maintenance, 03/11/20 14:37:00 EDT, Tablet, [facility]/pharmacy #[id number], 175, cm, 08/24/19 14:14:00 EDT, Height, 81.2, kg, 02/04/19 1:40:00 EDT,... Start Date: 03/11/20 Status: FlksabxYfg-V-Nrct oral tablet 1 tablet, By Mouth, Daily, # 90 tablet, 1 Refills, Maintenance, 05/21/20 9:35:00 EST, [facility], 1 tablet By Mouth Daily, 175, cm, 04/02/20 0:35:00 EDT, Height, 100, kg, 04/02/20 0:35:00 EDT, Dry Weight Start Date: 05/21/20 Status: JahxfplHnx-C-Xhyn oral tablet See Instructions, TAKE 1 TABLET BY MOUTH ONCE A DAY, # 30 tablet, 10 Refills, Maintenance, [facility], [facility], TAKE 1 TABLET BY MOUTH ONCE [...] 09/27/19 8:51:00 EDT, Route to Pharmacy Electronically, [facility], 175, cm, 08/24/19 14:14:00 EDT, Height, 81.2, kg, 02/04/19 1:40:00 EDT, Dry Weight Start Date: 09/27/19 Status: OrderedXifaxan 550 mg oral tablet 1 tablet, By Mouth, 2 times a day, # 60 tablet, 0 Refills, Maintenance, 04/16/20 14:45:00 EST, [facility]/pharmacy #[id number], 175, cm, 04/02/20 0:35:00 EDT, Height, 100, kg, 04/02/20 0:35:00 EDT, Dry Weight Start Date: 04/16/20 Status: OrderedXifaxan 550 mg oral tablet See Instructions, TAKE 1 TABLET BY MOUTH TWICE A DAY, # 60 tablet, 0 Refills, [facility], [facility], 04/02/20 0:35:00 EDT, Height, 100, [...] Active Vitamin D insufficiency(Confirmed) 08/16/12 Active 1refer olbau7mbx HEP C,b; immune HEP A,3r/o cbfknruqewrhecde7wwpwpy4tpkxedwt counseling6? zougkdm8jyo RF ANCA,normal immunofixation,8lumbar puncture November 2011,neg lymenormal IGA neg SSA ,SSBnormal methylmalonic acid homocyseine9 legally blind;yankxbfitq94sxvitm echo November 2014 Results Radiology Reports Exam Date Time Procedure Performing Provider Status 08/06/20 7:46 PM Chest Portable Mayda Linda; Auth (Verified) Notes:(Chest Portable) Reason For Exam: Shortness of BreathRESULT: Chest Portable Chest Portable Hx of Present Illness: pt covid+ 6 days ago, states he had SOB today and doctor told him to go to hospital if that happened. states he had a couple beers today ; Reason: Shortness of Breath; Clinical Question(s): CHF COMPARISON: 09/03/2018 FINDINGS: LINES AND TUBES: None. LUNGS AND PLEURA: Clear lungs. Normal pulmonary vascularity. No pleural effusion. No pneumothorax. HEART, MEDIASTINUM AND DEEDEE: Heart is normal in size. Normal upper mediastinal and hilar contour. BONES AND SOFT TISSUES: No acute abnormality. Status post TIPS and embolization of varices. IMPRESSION: No acute cardiopulmonary pathology. WSN: [id number] Ordering Physician: Maria Guadalupe Stern Dictated By: Gerard Sanchez MD Dictated Date/Time: 08/06/20 7:50 pm Reviewed By: Gerard Sanchez MD Signed By: Gerard Sanchez MD Signed Date/Time: 08/06/20 7:50 pm Transcribed By: MIRNA Transcribed Date/Time: 08/06/20 7:49 pm Vital Signs Most recent to oldest [Reference Range]: 1 2 Oxygen Saturation [94-100 %] 96 % 96 % (08/06/20 8:22 PM) (08/06/20 6:45 PM) Pulse Rate [55-90 bpm] 81 bpm 87 bpm (08/06/20 8:22 PM) (08/06/20 6:45 PM) Blood Pressure [90-138/55-84 mm Hg] 115/64 mm Hg 135/ 76 mm Hg (08/06/20 8:22 PM) (08/06/20 6:45 PM) Respiratory Rate [16-30 br/min] 17 br/min 18 br/mi n (08/06/20 8:22 PM) (08/06/20 6:45 PM) Temperature [96.8-100.4 DegF] 98.2 DegF 98.4 DegF (08/06/20 8:22 PM) (08/06/20 6:45 PM) Mode of Delivery (Oxygen) Room air Room air (08/06/20 8:22 PM) (08/06/20 6:45 PM) Blood pressure sites Arm, left Arm, left (08/06/20 8:22 PM) (08/06/20 6:45 PM) Temperature Route Oral Oral (08/06/20 8:22 PM) (08/06/20 6:45 PM) Social History Social History Type Response Smoking Status 10 or more cigarettes (1/2 p ack or more)/day in last 30 days entered on: 02/04/19 Sex
--- OUTSIDE RECORDS SUMMARY | 2022-03-14 03:11 | XMS_ITS | Continuity of Care Document ---
:1975 Author Organization [facility] Address [address] [place] [address]- Care Team Providers Name Role Phone Jany Baig DO Primary Care Physician [place] [facility] [place] 06[place]28[place]20 - 07/28/20 [facility] [address] [place] [address]- Allergies, Adverse Reactions, Alerts Substance Reaction Severity Status ibuprofen1 Hx of GI Bleed Active aspirin2 Hx GI Bleed Active Tylenol3 Cirrhosis Active NSAIDs Active 1pt advised not to take NSAIDs or Tylenol due to underlying liver disease. Also had GI side effects when took too much aspirin in the past.2pt took too much in the past and had GI side [id number] advised not to take d/t underlying liver [...] 08/02/12 Given 1Admin Note: #22Result Comment: [04/29/2017] [id number] Note: [email or web address] Admin Note: 3 RDINJ Medications baclofen 10 mg oral tablet 10 mg, 1, tablet, By Mouth, 3 times a day, pt needs to schedule appt, # 90 tablet, Refills 0, Tot. Refills 0, Maintenance, 07/18/20 17:30:00 EST, Route to Pharmacy Electronically, [facility], 175, cm, 04/02/20 0:35:00 EDT, Height, 100, kg, ... Start Date: 07/18/20 Stop Date: 08/17/20 Status: Orderedchantix 1mg tablet 1 tablet, By Mouth, 2 times a day, for 12 week(s), neeeds to schedule appt, # 56 tablet, 0 Refills, Acute 09/18/20 11:11:00 EDT, 06/26/20 11:11:00 EST, [facility], 175, cm, 04/02/20 0:35:00 EDT, Height, 100, kg, 04/02/20 0:35:00 EDT, Dry Weight Start Date: 06/26/20 Stop Date: 09/18/20 Status: Orderedchantix 1mg tablet 1 tablet, By Mouth, 2 times a day, for 12 week(s), # 56 tablet, 0 Refills, Acute, 05/21/20 12:54:00 EST, [facility], 175, cm, 04/02/20 0:35:00 EDT, Height, 100, kg, 04/02/20 0:35:00 EDT, Dry Weight Start Date: 05/21/20 Stop Date: 08/13/20 Status: OrderedCo Q-10 100 mg oral capsule 1 capsule, By Mouth, 4 times a day, # 120 capsule, 11 Refills, Maintenance, 11/21/19 10:36:00 EDT, [facility]acy #[id number], 175, cm, 08/24/19 14:14:00 EDT, Height, 81.2, kg, 02/04/19 1:40:00 EDT, Dry Weight Start Date: 11/21/19 Stop Date: 11/15/20 Status: OrderedEngerix-B 20 mcg/mL intramuscular suspension = 20 mcg, Intramuscular, Every 30 days, rpt at 1 and 6 months, # 1 mL, 2 Refills, Maintenance, 11/02/19 9:02:00 EDT, Suspension, [facility]/pharmacy #[id number], 175, cm, 08/24/19 14:14:00 EDT, Height, 81.2, kg, 02/04/19 1:40:00 EDT, Dry Weight Start Date: 11/02/19 Status: Orderedfluticasone 50 mcg/inh nasal spray See Instructions, SPRAY 1 SPRAY INTO EACH NOSTRIL TWICE A DAY, # 16 Gm, 5 Refills, 07/09/20 11:38:00EST, [facility], 30, SPRAY 1 SPRAY INTO EACH NOSTRIL TWICE A DAY, 175, cm, 04/02/20 0:35:00 EDT, Height, 100, kg, 04/02/20 0:35:00 EDT, Dry We... Start Date: 07/09/20 Status: Orderedgabapentin 600 mg oral tablet 1 tablet, By Mouth, 4 times a day, pt needs to schedule appt, # 120 tablet, 0 Refills, Maintenance, 07/18/20 17:30:00 EST, [facility], 175, cm, 04/02/20 0:35:00 EDT, Height, 100, kg, 04/02/20 0:35:00 EDT, Dry Weight Start Date: 07/18/20 Status: OrderedhydrOXYzine hydrochloride 25 mg oral tablet 1 TO 2 TABLETS, By Mouth, 3 times a day, PRN NEEDED FOR ANXIETY (VIAL), pt needs to schedule appt, # 60 tablet, 1 Refills, Maintenance, 07/18/20 17:31:00 EST, [facility], 175, cm, 04/02/20 0:35:00 EDT, Height, [...] EDT, Syrup, [facility], re sent from 10/04/17, 30... Start [...] 4 Refills, Maintenance, 07/18/20 17:30:00 EST, Tablet, [facility], 175, cm, 04/02/20 0:35:00 EDT, Height, [...] Gm, 0 Refills, Maintenance, 04/16/20 14:45:00 EST, [facility]/pharmacy #[id number], 8, APPLY TOPICALLY THREE TIMES DAILY (APPLY A THIN FILM), 175, cm, 04/02/20 0:35:00 EDT, Height, 100,... Start Date: 04/16/20 Status: Orderedmupirocin 2% topical ointment See Instructions, APPLY TOPICALLY THREE TIMES DAILY (APPLY A THIN FILM), # 22 Gm, 0 Refills, Acute, [facility], 8, APPLY TOPICALLY THREE TIMES DAILY [...] EDT, Tablet, [facility], 175, cm, 08/24/19 14:14:00 EDT, Height, 81.2, kg, 02/04/19 1:40:00 EDT, Dry Weight Start Date: 10/06/19 Status: Orderedsertraline 50 mg oral tablet 1 tablet, By Mouth, Daily, TAKE ALONG WITH A 100MG TABLET to equal 150mg daily, # 90 tablet, 1 Refills, Maintenance, 10/06/19 15:57:00 EDT, [facility], 175, cm, 08/24/19 14:14:00 EDT, Height, 81.2, kg, 02/04/19 1:40:00 EDT, Dry Weight Start Date: 10/06/19 Status: Orderedsildenafil 50 mg oral tablet 1 tablet = 50 mg, By Mouth, Daily, PRN erectile dysfunction, 1 hour before sexual activity, # 6 tablet, 5 Refills, Maintenance, 03/11/20 14:37:00 EDT, Tablet, [facility]/pharmacy #[id number], 175, cm, 08/24/19 14:14:00 EDT, Height, 81.2, kg, 02/04/19 1:40:00 EDT,... Start Date: 03/11/20 Status: XyytpleGas-Q-Qoir oral tablet 1 tablet, By Mouth, Daily, # 90 tablet, 1 Refills, Maintenance, 05/21/20 9:35:00 EST, [facility], 1 tablet By Mouth Daily, 175, cm, 04/02/20 0:35:00 EDT, Height, 100, kg, 04/02/20 0:35:00 EDT, Dry Weight Start Date: 05/21/20 Status: SokonvkZpc-Q-Ijnj oral tablet See Instructions, TAKE 1 TABLET BY MOUTH ONCE A DAY, # 30 tablet, 10 Refills, Maintenance, [facility], 28, TAKE 1 TABLET BY MOUTH ONCE [...] 09/27/19 8:51:00 EDT, Route to Pharmacy Electronically, [facility], 175, cm, 08/24/19 14:14:00 EDT, Height, [...] Active Vitamin D insufficiency(Confirmed) 08/16/12 Active 1refer gsvbs1dfw HEP C,b; immune HEP A,3r/o nrndcvphqodljbqs2edkadg8ivkwtarq counseling6? owyhzra3uhr RF ANCA,normal immunofixation,8lumbar puncture November 2011,neg lymenormal IGA neg SSA ,SSBnormal methylmalonic acid homocyseine9 legally blind;ncvyklmdej06dumwoy echo November 2014 Social History Social History Type Response Smoking Status 10 or more cigarettes (1/2 p ack or more)/day in last 30 days entered on: 02/04/19 Sex
--- OUTSIDE RECORDS SUMMARY | 2022-03-14 03:11 | XMS_ITS | Continuity of Care Document ---
:1975 Author Organization [facility] Address [address] [place] [address]- Care Team Providers Name Role Phone Jany Baig DO Primary Care Physician Encounter [facility] [place] Date(s): 04/01/21 - 05/01/21 [facility] [address] [place] [address]- Allergies, Adverse Reactions, Alerts Substance Reaction Severity Status ibuprofen1 Hx of GI Bleed Active aspirin2 Hx GI Bleed Active Tylenol3 Cirrhosis Active NSAIDs Active 1pt advised not to take NSAIDs or Tylenol due to underlying liver disease. Also had GI side effects when took too much aspirin in the past.2pt took too much in the past and had GI side [id number] advised not to take d/t underlying liver disease Immunizations Given and Recorded Vaccine Date Status Refusal Reason influenza virus vaccine, inactivated 03/01/20 Recorded influenza [...] acel (oldterm) 08/02/12 Given 1Result Comment: [04/29/2017] [id number] Note: [id number] Note: 3 [id number] Note: #2 Medications baclofen 10 mg oral tablet 1, tablet, By Mouth, 3 times a day, # 90 tablet, Refills 0, Route to Pharmacy Electronically, [facility], 174, cm, 02/27/21 15:17:00 EDT, Height, 81, kg, 02/27/21 14:06:00 EDT, Dry Weight Start Date: 04/16/21 Status: Orderedchantix 1mg tablet 1 tablet, By Mouth, 2 times a day, # 56 tablet, 0 Refills, Acute, 11/22/20 16:13:00 EDT, [facility], 178, cm, 11/12/20 15:32:00 EDT, Height, 84.9, kg, 08/31/20 1:07:00 EDT, Dry Weight Start Date: 11/22/20 Status: OrderedCo Q-10 100 mg oral capsule See Instructions, TAKE 1 CAPSULE BY MOUTH FOUR TIMES DAILY, # 120 capsule, 7 Refills, Maintenance, [facility], 178, cm, 10/22/20 13:17:00 EDT, Height, 84.9, kg, 08/31/20 1:07:00 EDT, Dry Weight Start Date: 11/01/20 Status: OrderedCo Q-10 100 mg oral capsule 1 capsule, By Mouth, 4 times a day, # 120 capsule, 11 Refills, Maintenance, 11/21/19 10:36:00 EDT, [facility]/pharmacy #[id number], 175, cm, 08/24/19 14:14:00 EDT, Height, 81.2, kg, 02/04/19 1:40:00 EDT, Dry Weight Start Date: 11/21/19 Stop Date: 11/15/20 Status: Orderedfluticasone 50 mcg/inh nasal spray See Instructions, USE 1 SPRAY INTO EACH NOSTRIL TWICE A DAY, # 16 Gm, 5 Refills, Maintenance, [facility], 30, USE 1 SPRAY INTO EACH NOSTRIL TWICE A DAY, 178, cm, 01/07/21 17:59:00 EDT, Height, 81.4, kg, 12/03/20 13:52:00 EDT, Dry Weight Start Date: 01/17/21 Status: Orderedgabapentin 600 mg oral tablet 1 tablet, By Mouth, 4 times a day, # 120 tablet, 0 Refills, [facility], 174, cm, 02/27/21 15:17:00 EDT, Height, 81, kg, 02/27/21 14:06:00 EDT, Dry Weight Start Date: 04/16/21 Status: OrderedhydrOXYzine hydrochloride 25 mg oral tablet 1 TO 2 TABLETS, By Mouth, 3 times a day, PRN NEEDED FOR ANXIETY (VIAL), # 60 tablet, 2 Refills, [facility], 174, cm, 02/11/21 12:09:00 EDT, Height, 86.6, kg, 02/06/21 14:20:00 EDT, Dry Weight Start Date: 02/19/21 Status: Orderedmelatonin 3 mg oral tablet 1 tablet = 3 mg, By Mouth, Daily at bedtime, PRN for insomnia, # 60 tablet, 4 Refills, Maintenance, 07/18/20 17:30:00 EST, Tablet, [facility], 175, cm, 04/02/20 0:35:00 EDT, Height, 100, kg, 04/02/20 0:35:00 EDT, Dry Weight Start Date: 07/18/20 Status: OrderedOXcarbazepine 150 mg oral tablet Refills [...] 2 times a day, # 60 tablet, 1 Refills, 174, cm, 02/27/21 15:17:00 EDT, Height, 81, kg, 02/27/21 14:06:00 EDT, Dry Weight Start Date: 04/16/21 Status: Orderedsertraline 100 mg oral tablet 1 tablet = 100 mg, By Mouth, Daily, combine with 50mg tab to equal 150mg daily, # 90 tablet, 1 Refills, Maintenance, 10/06/19 15:57:00 EDT, Tablet, [facility], 175, cm, 08/24/19 14:14:00 EDT, Height, 81.2, kg, 02/04/19 1:40:00 EDT, Dry Weight Start Date: 10/06/19 Status: Orderedsertraline 50 mg oral tablet 1 tablet, By Mouth, Daily, TAKE ALONG WITH A 100MG TABLET to equal 150mg daily, # 90 tablet, 1 Refills, Maintenance, 10/06/19 15:57:00 EDT, [facility], 175, cm, 08/24/19 14:14:00 EDT, Height, 81.2, kg, 02/04/19 1:40:00 EDT, Dry Weight Start Date: 10/06/19 Status: Orderedsildenafil 50 mg oral tablet 1 tablet = 50 mg, By Mouth, Daily, PRN erectile dysfunction, 1 hour before sexual activity, # 6 tablet, 5 Refills, Maintenance, 03/11/20 14:37:00 EDT, Tablet, [facility]/pharmacy #[id number], 175, cm, 08/24/19 14:14:00 EDT, Height, 81.2, kg, 02/04/19 1:40:00 EDT,... Start Date: 03/11/20 Status: OvbnxokMfn-J-Gyqq oral tablet See Instructions, TAKE 1 TABLET BY MOUTH ONCE A DAY, # 30 tablet, 10 Refills, Maintenance, [facility], 28, TAKE 1 TABLET BY MOUTH ONCE A DAY, 175, cm, 04/02/20 0:35:00 EDT, Height, 100, kg, 04/02/20 0:35:00 EDT, Dry Weight Start Date: 07/18/20 Status: Orderedtranexamic acid 650 mg oral tablet 1 tablet = 650 mg, By Mouth, Daily, # 21 tablet, 0 Refills, Maintenance, 10/22/20 17:52:00 EDT, Tablet, [facility]/pharmacy #[id number], Partial fill upon patient request if the prescription is for a schedule II opioid drug., 178, cm, 10/22/20 13:17:00 EDT, Height... Start Date: 10/22/20 Status: OrderedtraZODone 50 mg oral tablet See Instructions, TAKE 1 TO 2 TABLETS BY MOUTH AT BEDTIME (ONE DOSE IN VIAL), # 60 tablet, Refills 5, Instructions Replace Required Details, Route to Pharmacy Electronically, [facility], 174, cm, 02/11/21 12:09:00 EDT, Height, 86.6, kg, ... Start Date: 02/15/21 Status: OrderedVitamin B1 100 mg oral tablet 1, tablet, By Mouth, Daily, # 90 tablet, Refills 2, Tot. Refills 0, Acute, 09/05/20 17:32:00 EDT, [facility], [facility], cm, 08/31/20 11:25:00 EDT, Height, 84.9, kg,08/31/20 1:07:00 EDT, Dry Weight Start Date: 09/05/20 Status: OrderedXifaxan 550 mg oral tablet 1 tablet, By Mouth, 2 times a day, # 60 tablet, 0 Refills, Maintenance, 04/16/20 14:45:00 EST, [facility]/pharmacy #[id number], 175, cm, 04/02/20 0:35:00 EDT, Height, [...] Active Vitamin D insufficiency(Confirmed) 08/16/12 Active 1refer [id number] HEP C,b; immune HEP A,3r/o opscyogxomlumcmw7mwphyo9ojhupjpz counseling6? [id number] RF ANCA,normal immunofixation,8lumbar puncture November 2011,neg lymenormal IGA neg SSA ,SSBnormal methylmalonic acid homocyseine9 legally blind;[id number] echo November 2014 Social History Social History Type Response Smoking Status 10 or more cigarettes (1/2 p ack or more)/day in last 30 days entered on: 02/04/19 Sex Male
--- OUTSIDE RECORDS SUMMARY | 2022-03-14 03:11 | XMS_ITS | Continuity of Care Document ---
:1975 Author Organization [facility] Address [address] [place] [address]- Care Team Providers Name Role Phone Jany Baig DO Primary Care Physician Encounter [facility] Date(s): 06/09/21 - 07/09/21 [facility] [address] [place] [address]- Allergies, Adverse Reactions, Alerts Substance Reaction Severity Status ibuprofen1 Hx of GI Bleed Active aspirin2 Hx GI Bleed Active Tylenol3 Cirrhosis Active NSAIDs Active 1pt advised not to take NSAIDs or Tylenol due to underlying liver disease. Also had GI side effects when took too much aspirin in the past.2pt took too much in the past and had GI side [id number] advised not to take d/t underlying liver [...] acel (oldterm) 08/02/12 Given 1Result Comment: [04/29/2017] [id number] Note: [id number] Note: 3 [id number] Note: #2 Medications baclofen 10 mg oral tablet 1, tablet, By Mouth, 3 times a day, # 90 tablet, Refills 0, Route to Pharmacy Electronically, [facility], 174, cm, 02/27/21 15:17:00 EDT, Height, 81, kg, 02/27/21 14:06:00 EDT, Dry Weight Start Date: 07/08/21 Status: Orderedchantix 1mg tablet 1 tablet, By Mouth, 2 times a day, # 56 tablet, 0 Refills, Acute, 11/22/20 16:13:00 EDT, [facility], 178, cm, 11/12/20 15:32:00 EDT, Height, 84.9, kg, 08/31/20 1:07:00 EDT, Dry Weight Start Date: 11/22/20 Status: OrderedCo Q-10 100 mg oral capsule 1 capsule, By Mouth, 4 times a day, # 120 capsule, 6 Refills, [facility], 174, cm, 02/27/21 15:17:00 EDT, Height, 81, kg, 02/27/21 14:06:00 EDT, Dry Weight Start Date: 07/08/21 Status: Orderedfluticasone 50 mcg/inh nasal spray See Instructions, USE 1 SPRAY INTO EACH NOSTRIL TWICE A DAY, # 16 Gm, 5 Refills, Maintenance, [facility], 30, USE 1 SPRAY INTO EACH NOSTRIL TWICE A DAY, 178, cm, 01/07/21 17:59:00 EDT, Height, 81.4, kg, 12/03/20 13:52:00 EDT, Dry Weight Start Date: 01/17/21 Status: Orderedgabapentin 600 mg oral tablet 1 tablet, By Mouth, 4 times a day, # 120 tablet, 0 Refills, [facility], 174, cm, 02/27/21 15:17:00 EDT, Height, 81, kg, 02/27/21 14:06:00 EDT, Dry Weight Start Date: 07/08/21 Status: OrderedhydrOXYzine hydrochloride 25 mg oral tablet 1 TO 2 TABLETS, By Mouth, 3 times a day, PRN NEEDED FOR ANXIETY (VIAL), # 60 tablet, 0 Refills, [facility], 174, cm, 02/27/21 15:17:00 EDT, Height, 81, kg, 02/27/21 14:06:00 EDT, Dry Weight Start Date: 07/08/21 Status: Orderedlactulose 10 gm/15 ml oral syrup See Instructions, TAKE 30ML BY MOUTH THREE TIMES DAILY NEEDED TO ACHEIVE 3-4 BOWL MOVEMENTS PER DAY, # 3,000 mL, 10 Refills, [facility], 30, TAKE 30ML BY MOUTH THREE TIMES DAILY NEEDED TOACHEIVE 3-4 BOWL MOVEMENTS PER DAY, 174, cm, 02/12... Start Date: 07/02/21 Status: OrderedMelatonin 3 mg oral tablet 1 tablet, By Mouth, Daily at bedtime, PRN NEEDED FOR INSOMNIA (PACKAGE IN TRAY), # 60 tablet, 5 Refills, Maintenance, 06/02/21 16:17:00 EST, [facility], 28, 1 tablet By Mouth Daily [...] EDT, Dry Weight Start Date: 07/08/21 Status: Orderedsertraline 100 mg oral tablet 1 tablet = 100 mg, By Mouth, Daily, combine with 50mg tab to equal 150mg daily, # 90 tablet, 1 Refills, Maintenance, 10/06/19 15:57:00 EDT, Tablet, [facility], 175, cm, 08/24/19 14:14:00 EDT, Height, 81.2, kg, 02/04/19 1:40:00 EDT, Dry Weight Start Date: 10/06/19 Status: Orderedsertraline 50 mg oral tablet 1 tablet, By Mouth, Daily, TAKE ALONG WITH A 100MG TABLET to equal 150mg daily, # 90 tablet, 1 Refills, Maintenance, 10/06/19 15:57:00 EDT, [facility], 175, cm, 08/24/19 14:14:00 EDT, Height, [...] 02/04/19 1:40:00 EDT,... Start Date: 03/11/20 Status: FejpiltRbc-H-Lnzl oral tablet See Instructions, TAKE 1 TABLET BY MOUTH ONCE A DAY, # 30 tablet, 10 Refills, [facility], [facility], [facility], TAKE 1 TABLET BY MOUTH ONCE A DAY, 175, cm, 04/02/20 0:35:00 EDT, Height, 100, kg, 04/02/20 0:35:00 EDT, Dry Weight Start Date: 07/18/20 Status: Orderedtranexamic acid 650 mg oral tablet 1 tablet = 650 mg, By Mouth, Daily, # 21 tablet, 0 Refills, Maintenance, 10/22/20 17:52:00 EDT, Tablet, [facility]/pharmacy #[id number], Partial fill upon patient request if the prescription is for a schedule II opioid drug., 178, cm, 10/22/20 13:17:00 EDT, Height... Start Date: 10/22/20 Status: OrderedtraZODone 50 mg oral tablet See Instructions, TAKE 1 TO 2 TABLETS BY MOUTH AT BEDTIME (ONE DOSE IN VIAL), # 60 tablet, Refills 5, Instructions Replace Required Details, Route to Pharmacy Electronically, [facility], 174, cm, 02/11/21 12:09:00 EDT, Height, 86.6, kg, ... Start Date: 02/15/21 Status: OrderedVitamin B1 100 mg oral tablet 1, tablet, By Mouth, Daily, # 90 tablet, Refills 1, Route to Pharmacy Electronically, [facility], 174, cm, 02/27/21 15:17:00 EDT, Height, [...] Active Vitamin D insufficiency(Confirmed) 08/16/12 Active 1refer [id number] HEP C,b; immune HEP A,3r/o oipkwbxqweevyyxj1dzvjst0stziyjwq counseling6? [id number] RF ANCA,normal immunofixation,8lumbar puncture November 2011,neg lymenormal IGA neg SSA ,SSBnormal methylmalonic acid homocyseine9 legally blind;szkjokpnii27buridl echo November 2014 Social History Social History Type Response Smoking Status 10 or more cigarettes (1/2 p ack or more)/day in last 30 days entered on: 02/04/19 Sex Male
--- OUTSIDE RECORDS SUMMARY | 2022-03-14 03:11 | XMS_ITS | Continuity of Care Document ---
:1975 Author Organization [facility] Address [address] [place] [phone]- Care Team Providers Name Role Phone Jany Baig DO Primary Care Physician Encounter [facility] [place] Date(s): 10/31/20 - 11/01/[address] [address]- Encounter Diagnosis Subdural hematoma (Final) - 10/31/20 Discharge Disposition: A-D/C Home Attending Physician: Blanco Zhong MD Admitting Physician: Todd Herzog MD Referring Physician: Not on Staff, Referring MD [...] in the past and had GI side [id number] advised not to take d/t underlying liver [...] 08/02/12 Given 1Admin Note: #22Result Comment: [04/29/2017] [id number] Note: [id number] Admin Note: 3 RDINJ Medications baclofen 10 mg oral tablet 10 mg, Tablet, By Mouth, 11/01/20 15:00:00 EDT Start Date: 11/01/20 Stop Date: 11/01/20 Status: Completedbaclofen 10 mg oral tablet 1, tablet, By Mouth, 3 times a day, # 90 tablet, Refills 0, Tot. Refills 0, Maintenance, 10/07/20 16:49:00 EDT, Route to Pharmacy Electronically, [facility], 178, cm, 08/31/20 11:25:00 EDT, Height, 84.9, kg, 08/31/20 1:07:00 EDT, Dry Weight Start Date: 10/07/20 Status: Orderedchantix 1mg tablet 1 tablet, By Mouth, 2 times a day, # 56 tablet, 0 Refills, Maintenance, 11/01/20 15:08:00 EDT, [facility], 178, cm, 10/22/20 13:17:00 EDT, Height, 84.9, kg, 08/31/20 1:07:00 EDT, Dry Weight Start Date: 11/01/20 Status: OrderedCo Q-10 100 mg oral capsule See Instructions, TAKE 1 CAPSULE BY MOUTH FOUR TIMES DAILY, # 120 capsule, 7 Refills, Maintenance, [facility], 178, cm, 10/22/20 13:17:00 EDT, Height, 84.9, kg, 08/31/20 1:07:00 EDT, Dry Weight Start Date: 11/01/20 Status: OrderedCo Q-10 100 mg oral capsule 1 capsule, By Mouth, 4 times a day, # 120 capsule, 11 Refills, Maintenance, 11/21/19 10:36:00 EDT, [facility]/pharmacy #[id number], 175, cm, 08/24/19 14:14:00 EDT, Height, 81.2, kg, 02/04/19 1:40:00 EDT, Dry Weight Start Date: 11/21/19 Stop Date: 11/15/20 Status: Orderedfluticasone 50 mcg/inh nasal spray See Instructions, SPRAY 1 SPRAY INTO EACH NOSTRIL TWICE A DAY, # 16 Gm, 5 Refills, 07/09/20 11:38:00EST, [facility], 30, SPRAY 1 SPRAY INTO EACH NOSTRIL TWICE A DAY, 175, cm, 04/02/20 0:35:00 EDT, Height, 100, kg, 04/02/20 0:35:00 EDT, Dry We... Start Date: 07/09/20 Status: Orderedgabapentin 300 mg oral capsule 600 mg, Capsule, By Mouth, 11/01/20 13:00:00 EDT Start Date: 11/01/20 Stop Date: 11/01/20 Status: Completedgabapentin 600 mg oral tablet 1 tablet, By Mouth, 4 times a day, # 120 tablet, 0 Refills, Maintenance, 10/07/20 16:49:00 EDT, [facility], 178, cm, 08/31/20 11:25:00 EDT, Height, 84.9, kg, 08/31/20 1:07:00 EDT, Dry Weight Start Date: 10/07/20 Status: OrderedhydrOXYzine hydrochloride 25 mg oral tablet 1 TO 2 TABLETS, By Mouth, 3 times a day, PRN NEEDED FOR ANXIETY (VIAL), # 60 tablet, 3 Refills, Maintenance, 10/07/20 16:49:00 EDT, [facility], 178, cm, 08/31/20 11:25:00 EDT, Height, 84.9, kg, 08/31/20 1:07:00 EDT, Dry Weight Start Date: 10/07/20 Status: OrderedKeppra 500 mg oral tablet 1 tablet = 500 mg, By Mouth, 2 times a day, # 14 tablet, 0 Refills, Maintenance, 11/01/20 11:59:00 EDT, Tablet, [facility], Partial fill upon patient request if the prescription is for a schedule II opioid drug., 178, cm, 10/22/20 13:17:... Start Date: 11/01/20 Stop Date: 11/08/20 Status: Orderedlactulose 10 gm/15 ml oral syrup 30 mL = 20 Gm, By Mouth, 3 times a day, PRN Other, for 30 days, PRN to acheive 3-4 BMs per day fill in prefilled syringes, # 3,000 mL, 11 Refills, Acute 11/25/20 16:37:00 EDT, 12/01/19 16:37:00 EDT, Syrup, [facility], re sent from 10/04/17, 30... Start Date: 12/01/19 Stop Date: 11/25/20 Status: Orderedmelatonin 3 mg oral tablet 1 tablet = 3 mg, By Mouth, Daily at bedtime, PRN for insomnia, # 60 tablet, 4 Refills, Maintenance, 07/18/20 17:30:00 EST, Tablet, [facility], 175, cm, 04/02/20 0:35:00 EDT, [...] 1 Refills, Maintenance, 10/06/19 15:57:00 EDT, Tablet, [facility], 175, cm, 08/24/19 14:14:00 EDT, Height, 81.2, kg, 02/04/19 1:40:00 EDT, Dry Weight Start Date: 10/06/19 Status: Orderedsertraline 50 mg oral tablet 1 tablet, By Mouth, Daily, TAKE ALONG WITH A 100MG TABLET to equal 150mg daily, # 90 tablet, 1 Refills, Maintenance, 10/06/19 15:57:00 EDT, [facility], 175, cm, 08/24/19 14:14:00 EDT, Height, 81.2, kg, 02/04/19 1:40:00 EDT, Dry Weight Start Date: 10/06/19 Status: Orderedsildenafil 50 mg oral tablet 1 tablet = 50 mg, By Mouth, Daily, PRN erectile dysfunction, 1 hour before sexual activity, # 6 tablet, 5 Refills, Maintenance, 03/11/20 14:37:00 EDT, Tablet, [facility]/pharmacy #[id number], 175, cm, 08/24/19 14:14:00 EDT, Height, 81.2, kg, 02/04/19 1:40:00 EDT,... Start Date: 03/11/20 Status: HihtwmcNsu-M-Jarp oral tablet See Instructions, TAKE 1 TABLET BY MOUTH ONCE A DAY, # 30 tablet, 10 Refills, Maintenance, [facility], 28, TAKE 1 TABLET BY MOUTH [...] 0 Refills, Maintenance, 10/22/20 17:52:00 EDT, Tablet, [facility]/pharmacy #[id number], Partial fill upon patient request [...] Replace Required Details, Route to Pharmacy Electronically, [facility], 178, cm, 10/22/20... Start Date: 11/01/20 Status: OrderedVitamin B1 100 mg oral tablet 1, tablet, By Mouth, Daily, # 90 tablet, Refills 2, Tot. Refills 0, Acute, 09/05/20 17:32:00 EDT, Route to Pharmacy Electronically, [facility], 178, cm, 08/31/20 11:25:00 EDT, Height, 84.9, kg,08/31/20 1:07:00 EDT, Dry Weight Start Date: 09/05/20 Status: OrderedXifaxan 550 mg oral tablet 1 tablet, By Mouth, 2 times a day, # 60 tablet, 0 Refills, Maintenance, 04/16/20 14:45:00 EST, [facility]/pharmacy #[id number], 175, cm, 04/02/20 0:35:00 EDT, [...] Active Vitamin D insufficiency(Confirmed) 08/16/12 Active 1refer ilign3ukt HEP C,b; immune HEP A,3r/o qdtsnblloezpxcee8qixcto4ukpmvfoi counseling6? [id number] RF ANCA,normal immunofixation,8lumbar puncture November 2011,neg lymenormal IGA neg SSA ,SSBnormal methylmalonic acid homocyseine9 legally blind;[id number] echo November 2014 Vital Signs Most recent to oldest 1 2 3 [Reference Range]: Oxygen Saturation [94-100 %] 99 % 97 % 96 % (11/01/20 12:14 PM) (11/01/20 8:51 AM) (11/01/20 12 :00 AM) Pulse Rate [55-90 bpm] 75 bpm 80 bpm 77 bpm (11/01/20 12:14 PM) (11/01/20 8:51 AM) (11/01/20 12 :00 AM) Blood Pressure [90-138/55-84 149/86 mm Hg 150/89 mm Hg 134 /82 mm Hg mm Hg] *H* *H* (11/01/20 12:00 A M) (11/01/20 12:14 PM) (11/01/20 8:51 AM) Respiratory Rate [16-30 16 br/min 16 br/min 20 br/mi n br/min] (11/01/20 2:26 PM) (11/01/20 2:26 PM) (11/01/20 12: 14 PM) Temperature [96.8-100.4 98.7 DegF 98.6 DegF 98.8 Deg F DegF] (11/01/20 12:14 PM) (11/01/20 8:51 AM) (11/01/20 12 :00 AM) Liters per Minute 0 L/min 0 L/min (10/31/20 4:00 PM) (10/31/20 12:14 PM) Mode of Delivery (Oxygen) Room air Room air Room a ir (11/01/20 12:14 PM) (11/01/20 8:51 AM) (11/01/20 12 :00 AM) Blood pressure sites Arm, left Arm, right Arm, right (11/01/20 12:14 PM) (11/01/20 8:51 AM) (11/01/20 12 :00 AM) Temperature Route Temporal Temporal Temporal (11/01/20 12:14 PM) (11/01/20 8:51 AM) (11/01/20 12 :00 AM) Social History Social History Type Response Smoking Status 10 or more cigarettes (1/2 p ack or more)/day in last 30 days entered on: 02/04/19 Sex
--- OUTSIDE RECORDS SUMMARY | 2022-03-14 03:11 | XMS_ITS | Continuity of Care Document ---
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 Also had GI side effects when took too much aspirin in the past.2pt took too much in the past and had GI side [id number] advised not to take d/t underlying liver [...] acel (oldterm) 08/02/12 Given 1Result Comment: [04/29/2017] [id number] Note: [id number] Note: 3 [id number] Note: #2 Medications amLODIPine 5 mg oral tablet 5 mg, 1, tablet, By Mouth, Daily, # 30 tablet, Refills 5, Tot. Refills 5, Maintenance, 10/21/21 10:15:00 EDT, Route to Pharmacy Electronically, [facility], Partial fill upon patient request if the prescription is for a schedule II opioid drug.... Start Date: 10/21/21 Status: OrderedCo Q-10 100 mg oral capsule 1 capsule, By Mouth, 4 times a day, # 120 capsule, 6 Refills, [facility], 174, cm, 02/27/21 15:17:00 EDT, Height, 81, kg, 02/27/21 14:06:00 EDT, Dry Weight Start Date: 07/08/21 Status: Orderedfluticasone 50 mcg/inh nasal spray See Instructions, USE 1 SPRAY INTO EACH NOSTRIL TWICE A DAY, # 16 Gm, 5 Refills, [facility],30, USE 1 SPRAY INTO EACH NOSTRIL TWICE A DAY, 174, cm, 07/14/21 8:16:00 EST, Height, 81, kg, 02/27/21 14:06:00 EDT, Dry Weight Start Date: 08/04/21 Status: Orderedfolic acid 1 mg oral tablet 1 mg, 1, tablet, By Mouth, Daily, # 90 tablet, Refills 4, Tot. Refills 4, Maintenance, 10/27/21 10:40:00 EDT, Route to Pharmacy Electronically, [facility], Partial fill upon patient request if the prescription is for a schedule II opioid drug.... Start Date: 10/27/21 Stop Date: 01/20/23 Status: Orderedgabapentin 300 mg oral capsule 300 mg, 1, capsule, By Mouth, Daily at bedtime, note dose change, # 90 capsule, Refills 4, Tot. Refills 4, Maintenance, 10/27/21 10:39:00 EDT, Route to Pharmacy Electronically, [facility], Partial fill upon patient request if the prescription... Start Date: 10/27/21 Stop Date: 01/20/23 Status: OrderedhydrOXYzine hydrochloride 25 mg oral tablet 1 TO 2 TABLETS, By Mouth, 3 times a day, PRN NEEDED FOR ANXIETY (VIAL), # 60 tablet, 0 Refills, [facility], 175, cm, 10/27/21 10:11:00 EDT, Height, 87, kg, 09/27/21 21:30:00 EDT, Dry Weight Start Date: 10/29/21 Status: Orderedlactulose 10 gm/15 ml oral syrup See Instructions, TAKE 30ML BY MOUTH THREE TIMES DAILY NEEDED TO ACHEIVE 3-4 BOWL MOVEMENTS PER DAY, # 3,000 mL, 10 Refills, [facility], 30, TAKE 30ML BY MOUTH THREE TIMES DAILY NEEDED TOACHEIVE 3-4 BOWL MOVEMENTS PER DAY, 174, cm, 02/12... Start Date: 07/02/21 Status: OrderedLasix 40 mg oral tablet 40 mg, 1, tablet, By Mouth, 2 times a day, # 60 tablet, Refills 1, Tot. Refills 1, Maintenance, 10/21/21 10:15:00 EDT, Route to Pharmacy Electronically, [facility], Partial fill upon patient request if the prescription is for a schedule II opi... Start Date: 10/21/21 Stop Date: 12/20/21 Status: OrderedLasix 40 mg oral tablet 40 mg, 1, tablet, By Mouth, 2 times a day, Refills 0, Maintenance, 09/17/21 10:57:00 EDT, Partial fill upon patient request if the prescription is for a schedule II opioid drug. Start Date: 09/17/21 Status: Orderedmagnesium oxide 400 mg oral tablet 1 tablet, By Mouth, 2 times a day, # 60 tablet, 0 Refills, [facility], 175, cm, 10/27/21 10:11:00 EDT, Height, 87, kg, 09/27/21 21:30:00 EDT, Dry Weight Start Date: 10/29/21 Status: OrderedMelatonin 3 mg oral tablet 1 tablet, By Mouth, Daily at bedtime, PRN NEEDED FOR INSOMNIA (PACKAGE IN TRAY), # 60 tablet, 5 Refills, Maintenance, 06/02/21 16:17:00 EST, [facility], 28, 1 tablet By Mouth Daily [...] Start Date: 10/21/21 Stop Date: 04/19/22 Status: Orderedpyridoxine 50 mg oral tablet 50 mg, 1, tablet, By Mouth, Daily, for 90 days, # 90 tablet, Refills 4, Tot. Refills 4, Acute 01/15/23 11:42:00 EDT, 10/22/21 11:42:00 EDT, Route to Pharmacy Electronically, [facility], Partialfill upon patient request if the prescription is... Start Date: 10/22/21 Stop Date: 01/15/23 Status: OrderedrifAXIMin 550 mg oral tablet 1 tablet = 550 mg, By Mouth, 2 times a day, please contact GI for refills, # 60 tablet, 0 Refills, Maintenance, 10/21/21 10:15:00 EDT, Tablet, [facility], Partial fill upon patient request if the prescription is for a schedule II opioid drug.,... Start Date: 10/21/21 Stop Date: 11/20/21 Status: QptiulgGeq-J-Kuxp oral tablet 1 tablet, By Mouth, Daily, # 90 tablet, 9 Refills, [facility], 28, TAKE 1 TABLET BY MOUTH ONCE A DAY, 174, cm, 07/14/21 8:16:00 EST, Height, 81, kg, 02/27/21 14:06:00 EDT, Dry Weight Start Date: 07/22/21 Status: OrderedtraZODone 50 mg oral tablet See Instructions, TAKE 1 TO 2 TABLETS BY MOUTH AT BEDTIME (ONE DOSE IN VIAL), # 60 tablet, Refills 0, Instructions Replace Required Details, Route to Pharmacy Electronically, [facility], 175, cm, 10/27/21 10:11:00 EDT, Height, 87, kg, 09/27/21... Start Date: 10/29/21 Status: OrderedVitamin B1 100 mg oral tablet 1, tablet, By Mouth, Daily, # 90 tablet, Refills 1, Route to Pharmacy Electronically, [facility], 174, cm, 02/27/21 15:17:00 EDT, Height, [...] Active Vitamin D insufficiency(Confirmed) 08/16/12 Active 1refer [id number] HEP C,b; immune HEP A,3r/o lqwdclozistqucjp3jtzbhk1jnhvltzw counseling6? [id number] RF ANCA,normal immunofixation,8lumbar puncture November 2011,neg lymenormal IGA neg SSA ,SSBnormal methylmalonic acid homocyseine9 legally blind;[id number] echo November 2014 Social History Social History Type Response Smoking Status 10 or more cigarettes (1/2 p ack or more)/day in last 30 days entered on: 02/04/19 Sex
--- OUTSIDE RECORDS SUMMARY | 2022-03-14 03:11 | XMS_ITS | Continuity of Care Document ---
:1975 Author Organization [facility] Address [address] [place] [id number]- Care Team Providers Name Role Phone Jany Baig DO Primary Care Physician Encounter [facility] Date(s): 03/01/22 - 03/02/[address] [address]- Discharge Disposition: A-D/C Home Attending Physician: Bakari Cabrera MD Admitting Physician: Bakari Cabrera MD Referring Physician: Not on Staff, Referring [...] in the past and had GI side [id number] advised not to take d/t underlying liver [...] acel (oldterm) 08/02/12 Given 1Result Comment: [04/29/2017] [id number] Note: [id number] Note: 3 [id number] Note: #2 Medications acetaminophen 500 mg oral tablet 1 tablet, By Mouth, 4 times a day, PRN NEEDED FOR PAIN, MAX 4, PER DAY (VIAL., # 50 tablet, 0 Refills, Maintenance, 02/18/22 12:43:00 EDT, [facility], 175, cm, 01/06/22 10:34:00 EDT, Height,78.3, kg, 12/26/21 19:05:00 EDT, Dry Weight Start Date: 02/18/22 Status: OrderedamLODIPine 5 mg oral tablet 5 mg, 1, tablet, By Mouth, Daily, # 30 tablet, Refills 5, Tot. Refills 5, Maintenance, 10/21/21 10:15:00 EDT, [facility], [facility], Partial fill upon patient request if the prescription is for a schedule II opioid drug.... Start Date: 10/21/21 Status: OrderedCo Q-10 100 mg oral capsule 1 capsule, By Mouth, 4 times a day, # 120 capsule, 5 Refills, Maintenance, 02/18/22 12:44:00 EDT, [facility], 175, cm, 01/06/22 10:34:00 EDT, Height, 78.3, kg, 12/26/21 19:05:00 EDT, Dry Weight Start Date: 02/18/22 Status: OrderedCompression Stockings See Instructions, # 4 each, Refills 2, Tot. Refills 2, Maintenance, surgical, calf length 20-30 mm Hg M79.89 M79.606, 01/06/22 10:58:00 EDT, Supply Start Date: 01/06/22 Status: Orderedfluticasone 50 mcg/inh nasal spray See Instructions, USE 1 SPRAY(S) INTO EACH NOSTRIL TWICE A DAY, # 16 Gm, 5 Refills, Maintenance, 02/18/22 10:02:00 EDT, [facility], 30, USE 1 SPRAY(S) INTO EACH NOSTRIL TWICE A DAY, 175, cm, 01/06/22 10:34:00 EDT, Height, 78.3, kg, 12/26/21 19... Start Date: 02/18/22 Status: Orderedfolic acid 1 mg oral tablet 1 mg, 1, tablet, By Mouth, Daily, # 90 tablet, Refills 4, Tot. Refills 4, Maintenance, 10/27/21 10:40:00 EDT, Route to Pharmacy Electronically, [facility], Partial fill upon patient request if the prescription is for a schedule II opioid drug.... Start Date: 10/27/21 Stop Date: 01/20/23 Status: Orderedfurosemide 20 mg oral tablet 1, tablet, By Mouth, 2 times a day, # 60 tablet, Refills 0, Maintenance, 03/02/22 10:28:00 EDT, Route to Pharmacy Electronically, [id number], 175, cm, 01/06/22 10:34:00 EDT, Height, 78.3, kg, 12/26/21 19:05:00 EDT, Dry Weight Start Date: 03/02/22 Stop Date: 04/01/22 Status: OrderedhydrOXYzine hydrochloride 25 mg oral tablet 1 TO 2 TABLETS, By Mouth, 3 times a day, PRN NEEDED FOR ANXIETY (VIAL), # 60 tablet, 0 Refills, Maintenance, 02/18/22 12:45:00 EDT, [facility], 175, cm, 01/06/22 10:34:00 EDT, Height, 78.3, kg, 12/26/21 19:05:00 EDT, Dry Weight Start Date: 02/18/22 Status: Orderedlactulose 10 gm/15 ml oral syrup See Instructions, TAKE 30ML BY MOUTH THREE TIMES DAILY NEEDED TO ACHEIVE 3-4 BOWL MOVEMENTS PER DAY, # 3,000 mL, 10 Refills, [facility], 30, TAKE 30ML BY MOUTH THREE TIMES DAILY NEEDED TOACHEIVE 3-4 BOWL MOVEMENTS PER DAY, 174, cm, 02/12... Start Date: 07/02/21 Status: Orderedlidocaine 0.5% topical gel 1 application, Topically, 3 times a day, # 120 Gm, 0 Refills, Acute 12/30/22 17:23:00 EDT, 12/30/21 17:23:00 EDT, Gel, [facility], Partial fill upon patient request if the prescription is for aschedule II opioid drug., 1 application Topically... Start Date: 12/30/21 Stop Date: 12/30/22 Status: OrderedLidoderm 5% film 1 patch, Topically, Daily, remove patches after 12 hours NSAIDS contraindicated High dose tylenol contraindicated, # 30 patch, 5 Refills, Maintenance, 12/26/21 9:33:00 EDT, [facility], Partial fill upon patient request if the prescription i... Start Date: 12/26/21 Status: Orderedmagnesium oxide 400 mg oral tablet 1 tablet, By Mouth, 2 times a day, # 60 tablet, 0 Refills, Maintenance, 02/18/22 12:43:00 EDT, [facility], 175, cm, 01/06/22 10:34:00 EDT, Height, 78.3, kg, 12/26/21 19:05:00 EDT, Dry Weight Start Date: 02/18/22 Status: OrderedMelatonin 3 mg oral tablet 1 tablet, By Mouth, Daily at bedtime, PRN NEEDED FOR INSOMNIA (PACKAGE IN TRAY), # 60 tablet, 5 Refills, Maintenance, 06/02/21 16:17:00 EST, [facility], 28, 1 tablet By Mouth [...] Start Date: 10/21/21 Stop Date: 04/19/22 Status: OrderedPotassium Chloride (Qzc-Upas-Fsn M20) 20 mEq oral tablet, extended release See Instructions, TAKE 2 TABLETS BY MOUTH DAILY, # 60 tablet, 0 Refills, Maintenance, 02/18/22 12:43:00 EDT, [facility], 175, cm, 01/06/22 10:34:00 EDT, Height, 78.3, kg, 12/26/21 19:05:00 EDT,Dry Weight Start Date: 02/18/22 Status: Orderedpyridoxine 50 mg oral tablet 50 mg, 1, tablet, By Mouth, Daily, for 90 days, # 90 tablet, Refills 4, Tot. Refills 4, Acute 01/15/23 11:42:00 EDT, 10/22/21 11:42:00 EDT, [facility], [facility], Partialfill upon patient request if the prescription is... Start Date: 10/22/21 Stop Date: 01/15/23 Status: OrderedR aircast ankle-stirrup support brace R aircast ankle-stirrup support brace, See Instructions, # 1 each, Refills 0, Tot. Refills 0, Maintenance, Dx: R inversion ankle sprain s93.409a, 01/06/22 12:31:00 EDT, Supply Start Date: 01/06/22 Status: DclpvpsJdn-P-Otww oral tablet 1 tablet, By Mouth, Daily, # 90 tablet, 9 Refills, [facility], 28, TAKE 1 TABLET BY MOUTH ONCE A DAY, 174, cm, 07/14/21 8:16:00 EST, Height, 81, kg, 02/27/21 14:06:00 EDT, Dry Weight Start Date: 07/22/21 Status: OrderedtraZODone 50 mg oral tablet See Instructions, TAKE 1 TO 2 TABLETS BY MOUTH AT BEDTIME (ONE DOSE IN VIAL), # 60 tablet, Refills 0, Instructions Replace Required Details, [facility], [facility], cm, 01/06/22 10:34:00 EDT, Height, 78.3, kg, ... Start Date: 01/30/22 Status: OrderedtraZODone 50 mg oral tablet See Instructions, TAKE 2-3 TABLETS BY MOUTH AT BEDTIME (ONE DOSE IN VIAL), # 90 tablet, Refills 5, Tot. Refills 5, Maintenance, 12/26/21 9:21:00 EDT, Instructions Replace Required Details, [facility], 170, cm,... Start Date: 12/26/21 Status: OrderedVitamin B1 100 mg oral tablet 1, tablet, By Mouth, Daily, # 90 tablet, Refills 0, [facility], [facility], 170, cm, 11/12/21 10:02:00 EDT, Height, 78, kg, 11/04/21 12:03:00 EDT, Dry Weight Start Date: 12/24/21 Status: OrderedXifaxan 550 mg oral tablet 1 tablet, By Mouth, 2 times a day, # 60 tablet, 2 Refills, [facility], 175, cm, 01/06/22 10:34:00 EDT, [...] Active Vitamin D insufficiency(Confirmed) 08/16/12 Active 1refer livxs1bmj HEP C,b; immune HEP A,3r/o dxfydmltvansistg7gzzarg2llaieyxm counseling6? [id number] RF ANCA,normal immunofixation,8lumbar puncture November 2011,neg lymenormal IGA neg SSA ,SSBnormal methylmalonic acid homocyseine9 legally blind;[id number] echo November 2014 Results Radiology Reports Exam Date Time Procedure Performing Provider Status 03/02/22 2:14 AM Chest 2 Views Frontal and Lat Mayda Linda; Au th (Verified) Notes:(Chest 2 Views Frontal and Lat) Reason For Exam: Traumatic Chest Pain;Other:RESULT: Chest 2 Views Frontal and Lat Examination: Chest performed on 03/02/2022. History: Unwitnessed fall. Findings: Frontal and lateral views of the chest are compared to a prior study dated 09/27/2021. The cardiac and mediastinal silhouettes are within normal limits. Pulmonary vascular congestion is demonstrated. There are no focal infiltrates or pneumothoraces. A TIPS shunt is noted. There are embolization coils in the upper abdomen. Healed bilateral rib fractures and a healed left clavicular fracture are seen. IMPRESSION: Pulmonary vascular congestion. WSN: [id number] Ordering Physician: Cadence Cevallos Dictated By: Fide Glover MD Dictated Date/Time: 03/02/22 8:41 am Reviewed By: Fide Glover MD Signed By: Fide Glover MD Signed Date/Time: 03/02/22 8:41 am Transcribed By: MIRNA Transcribed Date/Time: 03/02/22 8:40 am Vital Signs Most recent to oldest 1 2 3 [Reference Range]: Oxygen Saturation [94-100 %] 98 % 96 % 97 % (03/02/22 6:53 AM) (03/02/22 3:46 AM) (03/01/22 10: 57 PM) Pulse Rate [55-90 bpm] 82 bpm 86 bpm 107 bpm (03/02/22 6:53 AM) (03/02/22 3:46 AM) *H* (03/01/22 10:57 P M) Blood Pressure [90-138/55-84 120/67 mm Hg 122/69 mm Hg 138 /82 mm Hg mm Hg] (03/02/22 6:53 AM) (03/02/22 3:46 AM) (03/01/22 10: 57 PM) Respiratory Rate [16-30 17 br/min 18 br/min 18 br/mi n br/min] (03/02/22 6:53 AM) (03/02/22 3:46 AM) (03/01/22 10: 57 PM) Temperature [96.8-100.4 DegF] 98.2 DegF (03/01/22 10:57 PM) Mode of Delivery (Oxygen) Room air Room air Room a ir (03/02/22 6:53 AM) (03/02/22 3:46 AM) (03/01/22 10: 57 PM) Temperature Route Oral (03/01/22 10:57 PM) Social History Social History Type Response Smoking Status 10 or more cigarettes (1/2 p ack or more)/day in last 30 days entered on: 02/04/19 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 History: Unwitnessed fall. Findings: Frontal and lateral views of the chest are compared to a prior study dated 09/27/2021. The cardiac and mediastinal silhouettes are within normal limits. Pulmonary vascular congestion is demonstrated. There are no focal infiltrates or pneumothoraces. A TIPS shunt is noted. There are embolization coils in the upper abdomen. Healed bilateral rib fractures and a healed left clavicular fracture are seen. IMPRESSION: Pulmonary vascular congestion. WSN: [id number] Ordering Physician: Cadence Cevallos Dictated By: Fide Glover MD Dictated Date/Time: 03/02/22 8:41 am Reviewed By: Fide Glover MD Signed By: Fide Glover MD Signed Date/Time: 03/02/22 8:41 am Transcribed By: MIRNA Transcribed Date/Time: 03/02/22 8:40 am Care Team PersonnelName: Jany Baig DO Address: [address] [place] [address] [facility] [address]
--- OUTSIDE RECORDS SUMMARY | 2022-03-14 03:11 | XMS_ITS | Continuity of Care Document ---
:1975 Author Organization [facility] Address [address] [place] [address]- Care Team Providers Name Role Phone Jany Baig DO Primary Care Physician [place] [facility] [place] [facility] [address] [place], [place] [address] Attending Physician: Jany Baig DO Allergies, Adverse [...] in the past and had GI side [id number] advised not to take d/t underlying liver [...] acel (oldterm) 08/02/12 Given 1Result Comment: [04/29/2017] [id number] Note: [id number] Note: 3 [id number] Note: #2 Medications baclofen 10 mg oral tablet 1, tablet, By Mouth, 3 times a day, # 90 tablet, Refills 0, Tot. Refills 0, 08/14/21 11:15:00 EST, Route to Pharmacy Electronically, [facility], 174, cm, 07/14/21 8:16:00 EST, Height, 81, kg, 02/27/21 14:06:00 EDT, Dry Weight Start Date: 08/14/21 Status: Orderedchantix 1mg tablet 1 tablet, By Mouth, 2 times a day, # 56 tablet, 0 Refills, Acute, 11/22/20 16:13:00 EDT, [facility], [facility], cm, 11/12/20 15:32:00 EDT, Height, 84.9, kg, 08/31/20 1:07:00 EDT, Dry Weight Start Date: 11/22/20 Status: OrderedCo Q-10 100 mg oral capsule 1 capsule, By Mouth, 4 times a day, # 120 capsule, 6 Refills, [facility], 174, cm, 02/27/21 15:17:00 EDT, Height, 81, kg, 02/27/21 14:06:00 EDT, Dry Weight Start Date: 07/08/21 Status: Orderedfluticasone 50 mcg/inh nasal spray See Instructions, USE 1 SPRAY INTO EACH NOSTRIL TWICE A DAY, # 16 Gm, 5 Refills, [facility],30, USE 1 SPRAY INTO EACH NOSTRIL TWICE A DAY, 174, cm, 07/14/21 8:16:00 EST, Height, 81, kg, 02/27/21 14:06:00 EDT, Dry Weight Start Date: 08/04/21 Status: Orderedgabapentin 600 mg oral tablet 1 tablet, By Mouth, 4 times a day, # 120 tablet, 0 Refills, 08/14/21 11:15:00 EST, [facility], 174, cm, 07/14/21 8:16:00 EST, Height, 81, kg, 02/27/21 14:06:00 EDT, Dry Weight Start Date: 08/14/21 Status: OrderedhydrOXYzine hydrochloride 25 mg oral tablet 1 TO 2 TABLETS, By Mouth, 3 times a day, PRN NEEDED FOR ANXIETY (VIAL), # 60 tablet, 0 Refills, Physician Stop 08/14/22 11:15:00 EST, 08/14/21 11:15:00 EST, [facility], 174, cm, 07/14/21 8:16:00 EST, Height, 81, kg, 02/27/21 14:06:00 EDT, D... Start Date: 08/14/21 Stop Date: 08/14/22 Status: Orderedlactulose 10 gm/15 ml oral syrup See Instructions, TAKE 30ML BY MOUTH THREE TIMES DAILY NEEDED TO ACHEIVE 3-4 BOWL MOVEMENTS PER DAY, # 3,000 mL, 10 Refills, [facility], 30, TAKE 30ML BY MOUTH THREE TIMES DAILY NEEDED TOACHEIVE 3-4 BOWL MOVEMENTS PER DAY, 174, cm, 02/12... Start Date: 07/02/21 Status: Orderedlidocaine 2% topical gel with applicator 5 mL = 0.1 Gm, Topically, Every 8 hours, # 30 mL, 1 Refills, Acute 08/17/21 14:43:00 EST, 08/14/21 14:43:00 EST, Gel, [facility]/pharmacy #[id number], Partial fill upon patient request if the prescription is for a schedule II opioid drug., 174, cm, 08/14/21 14:21:... Start Date: 08/14/21 Stop Date: 08/17/21 Status: OrderedMelatonin 3 mg oral tablet 1 tablet, By Mouth, Daily at bedtime, PRN NEEDED FOR INSOMNIA (PACKAGE IN TRAY), # 60 tablet, 5 Refills, Maintenance, 06/02/21 16:17:00 EST, [facility], 28, 1 tablet By Mouth Daily at bedtime,PRN: NEEDED FOR INSOMNIA (PACKAGE IN TRAY), 17... Start Date: 06/02/21 Status: Orderednicotine 14 mg/24 hr transdermal film, extended release 1 patch, Topically, Daily, for 28 days, # 28 patch, 0 Refills, Acute 09/05/21 15:22:00 EDT, 08/08/2214:22:00 EST, Patch, [facility]/pharmacy #[id number], Partial fill upon patient request if the prescription is for a schedule II opioid drug., 1 patch Topically Da... Start Date: 08/08/21 Stop Date: 09/05/21 Status: Orderednicotine 21 mg/24 hr transdermal film, extended release 1 patch, Topically, Daily, for 28 days, # 28 patch, 0 Refills, Acute 09/05/21 15:29:00 EDT, 08/08/2214:29:00 EST, Patch, [facility]/pharmacy #[id number], Partial fill upon patient request if the prescription is for a schedule II opioid drug., 1 patch Topically Da... Start Date: 08/08/21 Stop Date: 09/05/21 Status: OrderedNicotine 7 mg/24 hour patch 1 patch, Topically, Daily, for 28 days, # 28 patch, 0 Refills, Acute 09/05/21 15:22:00 EDT, 08/08/2214:22:00 EST, Patch, [facility]/pharmacy #[id number], Partial fill upon patient request if the prescription is for a schedule II opioid drug., 1 patch Topically Da... Start Date: 08/08/21 Stop Date: 09/05/21 Status: OrderedOXcarbazepine 150 mg oral tablet Refills [...] Maintenance, 10/06/19 15:57:00 EDT, Tablet, [facility], 175, cm, 08/24/19 14:14:00 EDT, Height, 81.2, kg, 02/04/19 1:40:00 EDT, Dry Weight Start Date: 10/06/19 Status: Orderedsertraline 50 mg oral tablet 1 tablet, By Mouth, Daily, TAKE ALONG WITH A 100MG TABLET to equal 150mg daily, # 90 tablet, 1 Refills, Maintenance, 10/06/19 15:57:00 EDT, [facility], 175, cm, 08/24/19 14:14:00 EDT, Height, 81.2, kg, 02/04/19 1:40:00 EDT, Dry Weight Start Date: 10/06/19 Status: Orderedsildenafil 50 mg oral tablet 1 tablet = 50 mg, By Mouth, Daily, PRN erectile dysfunction, 1 hour before sexual activity, # 6 tablet, 5 Refills, Maintenance, 03/11/20 14:37:00 EDT, Tablet, [facility]/pharmacy #[id number], 175, cm, 08/24/19 14:14:00 EDT, Height, 81.2, kg, 02/04/19 1:40:00 EDT,... Start Date: 03/11/20 Status: QmpvzwjPfr-I-Myds oral tablet 1 tablet, By Mouth, Daily, # 90 tablet, 9 Refills, [facility], 28, TAKE 1 TABLET BY MOUTH ONCE A DAY, 174, cm, 07/14/21 8:16:00 EST, Height, 81, kg, 02/27/21 14:06:00 EDT, Dry Weight Start Date: 07/22/21 Status: Orderedtranexamic acid 650 mg oral tablet 1 tablet = 650 mg, By Mouth, Daily, # 21 tablet, 0 Refills, Maintenance, 10/22/20 17:52:00 EDT, Tablet, [facility]/pharmacy #[id number], Partial fill upon patient request if the prescription is for a schedule II opioid drug., 178, cm, 10/22/20 13:17:00 EDT, Height... Start Date: 10/22/20 Status: OrderedtraZODone 50 mg oral tablet See Instructions, TAKE 1 TO 2 TABLETS BY MOUTH AT BEDTIME (ONE DOSE IN VIAL), # 60 tablet, Refills 0, Instructions Replace Required Details, Route to Pharmacy Electronically, [facility], 174, cm, 02/27/21 15:17:00 EDT, Height, 81, kg, 02/27/21... Start Date: 07/10/21 Status: OrderedtraZODone 50 mg oral tablet See Instructions, TAKE 1 TO 2 TABLETS BY MOUTH AT BEDTIME (ONE DOSE IN VIAL), # 60 tablet, Refills 0, Tot. Refills 0, 08/14/21 11:15:00 EST, Instructions Replace Required Details, Route to Pharmacy Electronically, [facility], 174, cm, 07/14/21... Start Date: 08/14/21 Status: Orderedvarenicline 0.5 mg tablet 1 tablet = 0.5 mg, By Mouth, 2 times a day, Days 1 to 3: 0.5 mg once daily. Days 4 to 7: 0.5 mg twice daily. then start new script for 1 mg twice a day, # 11 tablet, 0 Refills, Maintenance, 08/08/21 15:24:00 EST, Tablet, [facility] #[id number], Partial f... Start Date: 08/08/21 Status: Orderedvarenicline 1mg tablet 1 tablet = 1 mg, By Mouth, 2 times a day, to start after 0.5 mg tabs, # 56 tablet, 0 Refills, Maintenance, 08/08/21 15:26:00 EST, Tablet, [facility]/pharmacy #[id number], Partial fill upon patient request if the prescription is for a schedule II opioid drug., 174,... Start Date: 08/08/21 Status: OrderedVitamin B1 100 mg oral tablet 1, tablet, By Mouth, Daily, # 90 tablet, Refills 1, Route to Pharmacy Electronically, [facility], 174, cm, 02/27/21 15:17:00 EDT, Height, 81, kg, 02/27/21 14:06:00 EDT, Dry Weight Start Date: 06/16/21 Status: OrderedXifaxan 550 mg oral tablet 1 tablet, By Mouth, 2 times a day, # 60 tablet, 0 Refills, Maintenance, 04/16/20 14:45:00 EST, [facility] #[id number], 175, cm, 04/02/20 0:35:00 EDT, [...] Active Vitamin D insufficiency(Confirmed) 08/16/12 Active 1refer [id number] HEP C,b; immune HEP A,3r/o kcdawrssbqlazvvj0lfymos2epkbijwh counseling6? [id number] RF ANCA,normal immunofixation,8lumbar puncture November 2011,neg lymenormal IGA neg SSA ,SSBnormal methylmalonic acid homocyseine9 legally blind;[id number] echo November 2014 Social History Social History Type Response Smoking Status 10 or more cigarettes (1/2 p ack or more)/day in last 30 days entered on: 02/04/19 Sex Male
--- OUTSIDE RECORDS SUMMARY | 2022-03-14 03:12 | XMS_ITS | Continuity of Care Document ---
:[address] [facility] Address [address] [place] [address]- Care Team Providers Name Role Phone Jany Baig DO Primary Care Physician [place] [facility] [place] 03/07/20 - 04/06/20 [facility] [address] [place] [address]- [facility] Allergies, Adverse Reactions, Alerts Substance Reaction Severity Status ibuprofen1 Hx of GI Bleed Active aspirin2 Hx GI Bleed Active Tylenol3 Cirrhosis Active NSAIDs Active 1pt advised not to take NSAIDs or Tylenol due to underlying liver disease. Also had GI side effects when took too much aspirin in the past.2pt took too much in the past and had GI side frmfpup5in advised not to take d/t underlying liver [...] 08/02/12 Given 1Admin Note: #22Result Comment: [04/29/2017] [id number] Note: [id number] Admin Note: 3 RDINJ Medications baclofen 10 mg oral tablet 10 mg, 1, tablet, By Mouth, 3 times a day, # 90 tablet, Refills 4, Tot. Refills 4, Maintenance, 02/16/20 17:55:00 EDT, Route to Pharmacy Electronically, [email or web address], 175, cm, 08/24/19 14:14:00 EDT, Height, 81.2, kg, 02/04/19 1:40:00 EDT, Dry We... Start Date: 02/16/20 Stop Date: 07/15/20 Status: Orderedchantix 1mg tablet See Instructions, TAKE 1 TABLET BY MOUTH TWICE A DAY WITH A FULL GLASS OF WATER AND CONTINUE FOR A TOTAL OF 12 WEEKS, # 56 tablet, 0 Refills, Maintenance, 02/16/20 17:54:00 EDT, [email or web address], 175, cm, 08/24/19 14:14:00 EDT, Height, 81.2, kg, 08/... Start Date: 02/16/20 Status: OrderedCo Q-10 100 mg oral capsule 1 capsule, By Mouth, 4 times a day, # 120 capsule, 11 Refills, Maintenance, 11/21/19 10:36:00 EDT, [facility]/pharmacy #[id number], 175, cm, 08/24/19 14:14:00 EDT, Height, 81.2, kg, 02/04/19 1:40:00 EDT, Dry Weight Start Date: 11/21/19 Stop Date: 11/15/20 Status: OrderedEngerix-B 20 mcg/mL intramuscular suspension = 20 mcg, Intramuscular, Every 30 days, rpt at 1 and 6 months, # 1 mL, 2 Refills, Maintenance, 11/02/19 9:02:00 EDT, Suspension, [facility]/pharmacy #[id number], 175, cm, 08/24/19 14:14:00 EDT, Height, 81.2, kg, 02/04/19 1:40:00 EDT, Dry Weight Start Date: 11/02/19 Status: Orderedfluticasone 50 mcg/inh nasal spray See Instructions, SPRAY 1 SPRAY INTO EACH NOSTRIL TWICE A DAY, # 16 Gm, 5 Refills, 01/26/20 9:52:00 EDT, [facility], 30, SPRAY 1 SPRAY INTO EACH NOSTRIL TWICE A DAY, 175, cm, 08/24/19 14:14:00 EDT, Height, 81.2, kg, 02/04/19 1:40:00 EDT, Dry W... Start Date: 01/26/20 Status: Orderedgabapentin 600 mg oral tablet 1 tablet = 600 mg, By Mouth, 4 times a day, to replace prior script, # 120 tablet, 3 Refills, Maintenance, 01/26/20 14:28:00 EDT, Tablet, [facility], 175, cm, 08/24/19 14:14:00 EDT, Height, 81.2, kg, 02/04/19 1:40:00 EDT, Dry Weight Start Date: 01/26/20 Stop Date: 05/25/20 Status: Orderedlactulose 10 gm/15 ml oral syrup 30 mL = 20 Gm, By Mouth, 3 times a day, PRN Other, for 30 days, PRN to acheive 3-4 BMs per day fill in prefilled syringes, # 3,000 mL, 11 Refills, Acute 11/25/20 16:37:00 EDT, 12/01/19 16:37:00 EDT, Syrup, [facility], re sent from 10/04/17, 30... [...] 10:33:12 EDT, Syrup Start Date: 02/06/19 Status: OrderedMelatonin 3 mg oral tablet 1 tablet = 3 mg, By Mouth, Daily at bedtime, PRN for insomnia, # 60 tablet, 0 Refills, Maintenance, 06/26/19 20:34:00 EST, Tablet Start Date: 06/26/19 Status: Orderedmelatonin 3 mg oral tablet 1 tablet = 3 mg, By Mouth, Daily at bedtime, PRN for insomnia, # 60 tablet, 4 Refills, Maintenance, 10/06/19 16:16:00 EDT, Tablet, [facility], 175, cm, 08/24/19 14:14:00 EDT, Height, 81.2, kg, 02/04/19 1:40:00 EDT, Dry Weight Start Date: 10/06/19 Status: Orderedmupirocin 2% topical ointment See Instructions, APPLY TOPICALLY THREE TIMES DAILY (APPLY A THIN FILM), # 22 Gm, 0 Refills, Maintenance, 03/21/20 9:50:00 EDT, [facility], 8, APPLY TOPICALLY THREE TIMES DAILY (APPLY A THIN FILM), 175, cm, 08/24/19 14:14:00 EDT, Height, 81.2,... Start Date: 03/21/20 Status: Orderedmupirocin 2% topical ointment See Instructions, APPLY TOPICALLY THREE TIMES DAILY (APPLY A THIN FILM), # 22 Gm, 0 Refills, Maintenance, 01/26/20 14:28:00 EDT, [facility], 8, APPLY TOPICALLY THREE TIMES DAILY (APPLY A THIN FILM), 175, cm, 08/24/19 14:14:00 EDT, Height, 81.2... Start Date: 01/26/20 Status: Orderednaltrexone 50 mg oral tablet 1 [...] day, # 60 tablet, 2 Refills, Maintenance, 01/26/20 9:52:00 EDT, 175, cm, 08/24/19 14:14:00 EDT, Height, 81.2, kg, 02/04/19 1:40:00 EDT, Dry Weight Start Date: 01/26/20 Status: Orderedsertraline 100 mg oral tablet 1 tablet = 100 mg, By Mouth, Daily, combine with 50mg tab to equal 150mg daily, # 90 tablet, 1 Refills, Maintenance, 10/06/19 15:57:00 EDT, Tablet, [facility], 175, cm, 08/24/19 14:14:00 EDT, Height, 81.2, kg, 02/04/19 1:40:00 EDT, Dry Weight Start Date: 10/06/19 Status: Orderedsertraline 50 mg oral tablet 1 tablet, By Mouth, Daily, TAKE ALONG WITH A 100MG TABLET to equal 150mg daily, # 90 tablet, 1 Refills, Maintenance, 10/06/19 15:57:00 EDT, [facility], 175, cm, 08/24/19 14:14:00 EDT, Height, 81.2, kg, 02/04/19 1:40:00 EDT, Dry Weight Start Date: 10/06/19 Status: Orderedsildenafil 50 mg oral tablet 1 tablet = 50 mg, By Mouth, Daily, PRN erectile dysfunction, 1 hour before sexual activity, # 6 tablet, 5 Refills, Maintenance, 03/11/20 14:37:00 EDT, Tablet, [facility]/pharmacy #[id number], 175, cm, 08/24/19 14:14:00 EDT, Height, 81.2, kg, 02/04/19 1:40:00 EDT,... Start Date: 03/11/20 Status: AbcgzhuZdp-L-Skmd oral tablet 1 tablet, By Mouth, Daily, # 30 tablet, 11 Refills, Maintenance, 06/16/19 12:42:00 EST, [facility], 30, TAKE 1 TABLET BY MOUTH ONCE A DAY, 175, cm, 02/06/19 7:59:00 EDT, Height, 81.2, kg, 02/04/19 1:40:00 EDT, Dry Weight Start Date: 06/16/19 Status: Orderedthermometer R50.9 thermometer R50.9, See Instructions, [...] 09/27/19 8:51:00 EDT, Route to Pharmacy Electronically, [email or web address], 175, cm, 08/24/19 14:14:00 EDT, Height, 81.2, kg, 02/04/19 1:40:00 EDT, Dry Weight Start Date: 09/27/19 Status: OrderedXifaxan 550 mg oral tablet See Instructions, TAKE 1 TABLET BY MOUTH TWICE A DAY, # 60 tablet, 0 Refills, 02/16/20 17:54:00 EDT,[email or web address], 175, cm, 08/24/19 14:14:00 EDT, Height, 81.2, kg, 02/04/19 1:40:00 EDT, Dry Weight Start Date: 02/16/20 Status: OrderedXifaxan 550 mg oral tablet 1 tablet, By Mouth, 2 times a day, # 60 tablet, 0 Refills, Maintenance, 03/21/20 9:51:00 EDT, [email or web address], 175, cm, 08/24/19 14:14:00 EDT, Height, 81.2, kg, 02/04/19 1:40:00 EDT, Dry Weight Start Date: 03/21/20 Status: Ordered Problem List Condition Effective Dates [...] Active Vitamin D insufficiency(Confirmed) 08/16/12 Active 1refer [id number] HEP C,b; immune HEP A,3r/o ahvubttdeuppcfyf3hbviig3teqlnlzj counseling6? irxjsll1uyd RF ANCA,normal immunofixation,8lumbar puncture November 2011,neg lymenormal IGA neg SSA ,SSBnormal methylmalonic acid homocyseine9 legally blind;[id number] echo November 2014 Social History Social History Type Response Smoking Status 10 or more cigarettes (1/2 p ack or more)/day in last 30 days entered on: 02/04/19 Sex
--- OUTSIDE RECORDS SUMMARY | 2022-03-14 03:12 | XMS_ITS | Continuity of Care Document ---
:[address] [facility] Address [address] [place] [address]- Care Team Providers Name Role Phone Jany Baig DO Primary Care Physician Encounter [facility] Date(s): 02/28/21 - 03/30/21 [facility] [address] [place] [address]- Allergies, Adverse Reactions, Alerts Substance Reaction Severity Status ibuprofen1 Hx of GI Bleed Active aspirin2 Hx GI Bleed Active Tylenol3 Cirrhosis Active NSAIDs Active 1pt advised not to take NSAIDs or Tylenol due to underlying liver disease. Also had GI side effects when took too much aspirin in the past.2pt took too much in the past and had GI side [id number] advised not to take d/t underlying liver [...] acel (oldterm) 08/02/12 Given 1Result Comment: [04/29/2017] [id number] Note: [id number] Note: 3 [id number] Note: #2 Medications baclofen 10 mg oral tablet 1, tablet, By Mouth, 3 times a day, # 90 tablet, Refills 0, Route to Pharmacy Electronically, [facility], 174, cm, 02/27/21 15:17:00 EDT, Height, 81, kg, 02/27/21 14:06:00 EDT, Dry Weight Start Date: 03/18/21 Status: Orderedchantix 1mg tablet 1 tablet, By Mouth, 2 times a day, # 56 tablet, 0 Refills, Acute, 11/22/20 16:13:00 EDT, [facility], 178, cm, 11/12/20 15:32:00 EDT, Height, 84.9, kg, 08/31/20 1:07:00 EDT, Dry Weight Start Date: 11/22/20 Status: OrderedCo Q-10 100 mg oral capsule See Instructions, TAKE 1 CAPSULE BY MOUTH FOUR TIMES DAILY, # 120 capsule, 7 Refills, Maintenance, [facility], 178, cm, 10/22/20 13:17:00 EDT, Height, 84.9, kg, 08/31/20 1:07:00 EDT, Dry Weight Start Date: 11/01/20 Status: OrderedCo Q-10 100 mg oral capsule 1 capsule, By Mouth, 4 times a day, # 120 capsule, 11 Refills, Maintenance, 11/21/19 10:36:00 EDT, [facility]/pharmacy #[id number], 175, cm, 08/24/19 14:14:00 EDT, Height, 81.2, kg, 02/04/19 1:40:00 EDT, Dry Weight Start Date: 11/21/19 Stop Date: 11/15/20 Status: Orderedfluticasone 50 mcg/inh nasal spray See Instructions, USE 1 SPRAY INTO EACH NOSTRIL TWICE A DAY, # 16 Gm, 5 Refills, Maintenance, [facility], 30, USE 1 SPRAY INTO EACH NOSTRIL TWICE A DAY, 178, cm, 01/07/21 17:59:00 EDT, Height, 81.4, kg, 12/03/20 13:52:00 EDT, Dry Weight Start Date: 01/17/21 Status: Orderedgabapentin 600 mg oral tablet 1 tablet, By Mouth, 4 times a day, # 120 tablet, 0 Refills, [facility], 174, cm, 02/27/21 15:17:00 EDT, Height, 81, kg, 02/27/21 14:06:00 EDT, Dry Weight Start Date: 03/18/21 Status: OrderedhydrOXYzine hydrochloride 25 mg oral tablet 1 TO 2 TABLETS, By Mouth, 3 times a day, PRN NEEDED FOR ANXIETY (VIAL), # 60 tablet, 2 Refills, [facility], 174, cm, 02/11/21 12:09:00 EDT, Height, 86.6, kg, 02/06/21 14:20:00 EDT, Dry Weight Start Date: 02/19/21 Status: Orderedmelatonin 3 mg oral tablet 1 tablet = 3 mg, By Mouth, Daily at bedtime, PRN for insomnia, # 60 tablet, 4 Refills, Maintenance, 07/18/20 17:30:00 EST, Tablet, [facility], 175, cm, 04/02/20 0:35:00 EDT, [...] A DAY, # 60 tablet, 2 Refills, Maintenance, 178, cm, 01/07/21 17:59:00 EDT, Height, 81.4, kg, 12/03/20 13:52:00 EDT, Dry Weight Start Date: 01/17/21 Status: Orderedsertraline 100 mg oral tablet 1 tablet = 100 mg, By Mouth, Daily, combine with 50mg tab to equal 150mg daily, # 90 tablet, 1 Refills, Maintenance, 10/06/19 15:57:00 EDT, Tablet, [facility], 175, cm, 08/24/19 14:14:00 EDT, Height, 81.2, kg, 02/04/19 1:40:00 EDT, Dry Weight Start Date: 10/06/19 Status: Orderedsertraline 50 mg oral tablet 1 tablet, By Mouth, Daily, TAKE ALONG WITH A 100MG TABLET to equal 150mg daily, # 90 tablet, 1 Refills, Maintenance, 10/06/19 15:57:00 EDT, [facility], 175, cm, 08/24/19 14:14:00 EDT, Height, 81.2, kg, 02/04/19 1:40:00 EDT, Dry Weight Start Date: 10/06/19 Status: Orderedsildenafil 50 mg oral tablet 1 tablet = 50 mg, By Mouth, Daily, PRN erectile dysfunction, 1 hour before sexual activity, # 6 tablet, 5 Refills, Maintenance, 03/11/20 14:37:00 EDT, Tablet, [facility]/pharmacy #[id number], 175, cm, 08/24/19 14:14:00 EDT, Height, 81.2, kg, 02/04/19 1:40:00 EDT,... Start Date: 03/11/20 Status: BczuqdrDay-D-Wvqb oral tablet See Instructions, TAKE 1 TABLET BY MOUTH ONCE A DAY, # 30 tablet, 10 Refills, Maintenance[facility], TAKE 1 TABLET BY MOUTH ONCE A DAY, 175, cm, 04/02/20 0:35:00 EDT, Height, 100, kg, 04/02/20 0:35:00 EDT, Dry Weight Start Date: 07/18/20 Status: Orderedtranexamic acid 650 mg oral tablet 1 tablet = 650 mg, By Mouth, Daily, # 21 tablet, 0 Refills, Maintenance, 10/22/20 17:52:00 EDT, Tablet, [facility]/pharmacy #[id number], Partial fill upon patient request if the prescription is for a schedule II opioid drug., 178, cm, 10/22/20 13:17:00 EDT, Height... Start Date: 10/22/20 Status: OrderedtraZODone 50 mg oral tablet See Instructions, TAKE 1 TO 2 TABLETS BY MOUTH AT BEDTIME (ONE DOSE IN VIAL), # 60 tablet, Refills 5, Instructions Replace Required Details, Route to Pharmacy Electronically, [facility], 174, cm, 02/11/21 12:09:00 EDT, Height, 86.6, kg, ... Start Date: 02/15/21 Status: OrderedVitamin B1 100 mg oral tablet 1, tablet, By Mouth, Daily, # 90 tablet, Refills 2, Tot. Refills 0, Acute, 09/05/20 17:32:00 EDT, Route to Pharmacy Electronically, [facility], 178, cm, 08/31/20 11:25:00 EDT, Height, 84.9, kg,08/31/20 1:07:00 EDT, Dry Weight Start Date: 09/05/20 Status: OrderedXifaxan 550 mg oral tablet 1 tablet, By Mouth, 2 times a day, # 60 tablet, 0 Refills, Maintenance, 04/16/20 14:45:00 EST, [facility]/pharmacy #[id number], 175, cm, 04/02/20 0:35:00 EDT, Height, [...] Active APTU in 06/2015(Confirmed) Neuropathy(Confirmed)6 Active ANA LUIAS (obstructive sleep Active apnea)(Confirmed) Sherie's Optic neuropathy(Confirmed)7, Active 8, 9 Overweight(Confirmed) Active Heart murmur, systolic(Confirmed)10 Active Vitamin D insufficiency(Confirmed) 08/16/12 Active 1refer [id number] HEP C,b; immune HEP A,3r/o wkqcbddbnkimdier4xiiyqq1xlsdtluk counseling6? cwtrgee9sls RF ANCA,normal immunofixation,8lumbar puncture November 2011,neg lymenormal IGA neg SSA ,SSBnormal methylmalonic acid homocyseine9 legally blind;[id number] echo November 2014 Social History Social History Type Response Smoking Status 10 or more cigarettes (1/2 p ack or more)/day in last 30 days entered on: 02/04/19 Sex
--- OUTSIDE RECORDS SUMMARY | 2022-03-14 03:12 | XMS_ITS | Continuity of Care Document ---
:1975 Author Organization [facility] Address [address] [place] [address]- Care Team Providers Name Role Phone Jany Baig DO Primary Care Physician Encounter [facility] Date(s): 10/28/21 - 11/27/21 [facility] [address] [place] [address]- Allergies, Adverse Reactions, Alerts Substance Reaction Severity Status ibuprofen1 Hx of GI Bleed Active aspirin2 Hx GI Bleed Active Tylenol3 Cirrhosis Active NSAIDs Active 1pt advised not to take NSAIDs or Tylenol due to underlying liver disease. Also had GI side effects when took too much aspirin in the past.2pt took too much in the past and had GI side [id number] advised not to take d/t underlying liver [...] acel (oldterm) 08/02/12 Given 1Result Comment: [04/29/2017] [id number] Note: [id number] Note: 3 [id number] Note: #2 Medications amLODIPine 5 mg oral tablet 5 mg, 1, tablet, By Mouth, Daily, # 30 tablet, Refills 5, Tot. Refills 5, Maintenance, 10/21/21 10:15:00 EDT, Route to Pharmacy Electronically, [facility], Partial fill upon patient request if the prescription is for a schedule II opioid drug.... Start Date: 10/21/21 Status: OrderedCo Q-10 100 mg oral capsule 1 capsule, By Mouth, 4 times a day, # 120 capsule, 6 Refills, [facility], 174, cm, 02/27/21 15:17:00 EDT, Height, 81, kg, 02/27/21 14:06:00 EDT, Dry Weight Start Date: 07/08/21 Status: Orderedfluticasone 50 mcg/inh nasal spray See Instructions, USE 1 SPRAY INTO EACH NOSTRIL TWICE A DAY, # 16 Gm, 5 Refills, [facility],30, USE 1 SPRAY INTO EACH NOSTRIL TWICE A DAY, 174, cm, 07/14/21 8:16:00 EST, Height, 81, kg, 02/27/21 14:06:00 EDT, Dry Weight Start Date: 08/04/21 Status: Orderedfolic acid 1 mg oral tablet 1 mg, 1, tablet, By Mouth, Daily, # 90 tablet, Refills 4, Tot. Refills 4, Maintenance, 10/27/21 10:40:00 EDT, Route to Pharmacy Electronically, [facility], Partial fill upon patient request if the prescription is for a schedule II opioid drug.... Start Date: 10/27/21 Stop Date: 01/20/23 Status: Orderedfurosemide 40 mg oral tablet See Instructions, TAKE 1 TABLET BY MOUTH TWICE A DAY, # 60 tablet, Refills 5, Instructions Replace Required Details, Route to Pharmacy Electronically, [facility], 170, cm, 11/12/21 10:02:00 EDT, Height, 78, kg, 11/04/21 12:03:00 EDT, Dry Weight Start Date: 11/25/21 Status: Orderedgabapentin 300 mg oral capsule 300 mg, 1, capsule, By Mouth, Daily at bedtime, note dose change, # 90 capsule, Refills 4, Tot. Refills 4, Maintenance, 10/27/21 10:39:00 EDT, Route to Pharmacy Electronically, [facility], Partial fill upon patient request if the prescription... Start Date: 10/27/21 Stop Date: 01/20/23 Status: OrderedhydrOXYzine hydrochloride 25 mg oral tablet 1 TO 2 TABLETS, By Mouth, 3 times a day, PRN NEEDED FOR ANXIETY (VIAL), # 60 tablet, 0 Refills, [facility], 170, cm, 11/12/21 10:02:00 EDT, Height, 78, kg, 11/04/21 12:03:00 EDT, Dry Weight Start Date: 11/26/21 Status: Orderedlactulose 10 gm/15 ml oral syrup See Instructions, TAKE 30ML BY MOUTH THREE TIMES DAILY NEEDED TO ACHEIVE 3-4 BOWL MOVEMENTS PER DAY, # 3,000 mL, 10 Refills, [facility], 30, TAKE 30ML BY MOUTH THREE TIMES DAILY NEEDED TOACHEIVE 3-4 BOWL MOVEMENTS PER DAY, 174, cm, 02/12... Start Date: 07/02/21 Status: Orderedmagnesium oxide 400 mg oral tablet 1 tablet, By Mouth, 2 times a day, # 60 tablet, 1 Refills, [facility], 170, cm, 11/12/21 10:02:00 EDT, Height, 78, kg, 11/04/21 12:03:00 EDT, Dry Weight Start Date: 11/26/21 Status: OrderedMelatonin 3 mg oral tablet 1 tablet, By Mouth, Daily at bedtime, PRN NEEDED FOR INSOMNIA (PACKAGE IN TRAY), # 60 tablet, 5 Refills, Maintenance, 06/02/21 16:17:00 EST, [facility], 28, 1 tablet By Mouth [...] 10/22/21 11:42:00 EDT, Route to Pharmacy Electronically, [facility], Partialfill upon patient request if the prescription is... Start Date: 10/22/21 Stop Date: 01/15/23 Status: DkipnnlGjv-V-Haca oral tablet 1 tablet, By Mouth, Daily, # 90 tablet, 9 Refills, [facility], 28, TAKE 1 TABLET BY MOUTH ONCE A DAY, 174, cm, 07/14/21 8:16:00 EST, Height, 81, kg, 02/27/21 14:06:00 EDT, Dry Weight Start Date: 07/22/21 Status: OrderedtraZODone 50 mg oral tablet See Instructions, TAKE 1 TO 2 TABLETS BY MOUTH AT BEDTIME (ONE DOSE IN VIAL), # 60 tablet, Refills 5, Tot. Refills 5, Maintenance, 11/25/21 14:18:00 EDT, Instructions Replace Required Details, Route toPharmacy Electronically, [facility], 170,... Start Date: 11/25/21 Status: OrderedVitamin B1 100 mg oral tablet 1, tablet, By Mouth, Daily, # 90 tablet, Refills 1, Route to Pharmacy Electronically, [facility], 174, cm, 02/27/21 15:17:00 EDT, Height, 81, kg, 02/27/21 14:06:00 EDT, Dry Weight Start Date: 06/16/21 Status: OrderedXifaxan 550 mg oral tablet 1 tablet, By Mouth, 2 times a day, # 60 tablet, 1 Refills, [facility], 170, cm, 11/05/21 11:11:00 EDT, Height, 78, kg, 11/04/21 12:03:00 EDT, Dry Weight Start Date: 11/05/21 Status: Ordered Problem List Condition Effective Dates [...] Active Vitamin D insufficiency(Confirmed) 08/16/12 Active 1refer [id number] HEP C,b; immune HEP A,3r/o ifaaggrkhimvkbqk6ghhzqi4wrpmvdsk counseling6? [id number] RF ANCA,normal immunofixation,8lumbar puncture November 2011,neg lymenormal IGA neg SSA ,SSBnormal methylmalonic acid homocyseine9 legally blind;[id number] echo November 2014 Social History Social History Type Response Smoking Status 10 or more cigarettes (1/2 p ack or more)/day in last 30 days entered on: 02/04/19 Sex
--- OUTSIDE RECORDS SUMMARY | 2022-03-14 03:12 | XMS_ITS | Continuity of Care Document ---
:1975 Author Organization [facility] Address [address] [place] [id number]- Care Team Providers Name Role Phone Jany Baig DO Primary Care Physician Encounter [facility] Date(s): 03/15/20 - 04/18/[address] [address] Attending Physician: Jany Baig DO Admitting Physician: Jany Baig DO Referring Physician: Jany aBig DO Allergies, Adverse Reactions, Alerts Substance Reaction Severity Status ibuprofen1 Hx of GI Bleed Active aspirin2 Hx GI Bleed Active Tylenol3 Cirrhosis Active NSAIDs Active 1pt advised not to take NSAIDs or Tylenol due to underlying liver disease. Also had GI side effects when took too much aspirin in the past.2pt took too much in the past and had GI side [id number] advised not to take d/t underlying liver [...] 08/02/12 Given 1Admin Note: #22Result Comment: [04/29/2017] [id number] Note: [id number] Admin Note: 3 RDINJ Medications baclofen 10 mg oral tablet 10 mg, 1, tablet, By Mouth, 3 times a day, # 90 tablet, Refills 4, Tot. Refills 4, Maintenance, 02/16/20 17:55:00 EDT, Route to Pharmacy Electronically, [facility], 175, cm, 08/24/19 14:14:00 EDT, Height, 81.2, kg, 02/04/19 1:40:00 EDT, Dry We... Start Date: 02/16/20 Stop Date: 07/15/20 Status: Orderedchantix 1mg tablet See Instructions, TAKE 1 TABLET BY MOUTH TWICE A DAY WITH A FULL GLASS OF WATER AND CONTINUE FOR A TOTAL OF 12 WEEKS, # 56 tablet, 0 Refills, Maintenance, 04/16/20 14:45:00 EST, [id number], 175, cm, 04/02/20 0:35:00 EDT, Height, 100, kg, 04/02... Start Date: 04/16/20 Status: OrderedCo Q-10 100 mg oral capsule 1 capsule, By Mouth, 4 times a day, # 120 capsule, 11 Refills, Maintenance, 11/21/19 10:36:00 EDT, [id number], 175, cm, 08/24/19 14:14:00 EDT, Height, 81.2, kg, 02/04/19 1:40:00 EDT, Dry Weight Start Date: 11/21/19 Stop Date: 11/15/20 Status: OrderedEngerix-B 20 mcg/mL intramuscular suspension = 20 mcg, Intramuscular, Every 30 days, rpt at 1 and 6 months, # 1 mL, 2 Refills, Maintenance, 11/02/19 9:02:00 EDT, Suspension, [id number], 175, cm, 08/24/19 14:14:00 EDT, Height, 81.2, kg, 02/04/19 1:40:00 EDT, Dry Weight Start Date: 11/02/19 Status: Orderedfluticasone 50 mcg/inh nasal spray See Instructions, SPRAY 1 SPRAY INTO EACH NOSTRIL TWICE A DAY, # 16 Gm, 5 Refills, 01/26/20 9:52:00 EDT, [facility], 30, SPRAY 1 SPRAY INTO EACH NOSTRIL TWICE A DAY, 175, cm, 08/24/19 14:14:00 EDT, Height, 81.2, kg, 02/04/19 1:40:00 EDT, Dry W... Start Date: 01/26/20 Status: Orderedgabapentin 600 mg oral tablet 1 tablet = 600 mg, By Mouth, 4 times a day, to replace prior script, # 120 tablet, 3 Refills, Maintenance, 01/26/20 14:28:00 EDT, [facility], [facility], cm, 08/24/19 14:14:00 EDT, Height, [...] 11/25/20 16:37:00 EDT, 12/01/19 16:37:00 EDT, Syrup, [facility] 10/04/17, 30... Start [...] 4 Refills, Maintenance, 10/06/19 16:16:00 EDT, Tablet, [facility], 175, cm, 08/24/19 14:14:00 EDT, Height, 81.2, kg, 02/04/19 1:40:00 EDT, Dry Weight Start Date: 10/06/19 Status: Orderedmupirocin 2% topical ointment See Instructions, APPLY TOPICALLY THREE TIMES DAILY (APPLY A THIN FILM), # 22 Gm, 0 Refills, Maintenance, 04/16/20 14:45:00 EST, [id number], 8, APPLY TOPICALLY THREE TIMES [...] 1 Refills, Maintenance, 10/06/19 15:57:00 EDT, Tablet, [facility], 175, cm, 08/24/19 14:14:00 EDT, Height, 81.2, kg, 02/04/19 1:40:00 EDT, Dry Weight Start Date: 10/06/19 Status: Orderedsertraline 50 mg oral tablet 1 tablet, By Mouth, Daily, TAKE ALONG WITH A 100MG TABLET to equal 150mg daily, # 90 tablet, 1 Refills, Maintenance, 10/06/19 15:57:00 EDT, [facility], 175, cm, 08/24/19 14:14:00 EDT, Height, 81.2, kg, 02/04/19 1:40:00 EDT, Dry Weight Start Date: 10/06/19 Status: Orderedsildenafil 50 mg oral tablet 1 tablet = 50 mg, By Mouth, Daily, PRN erectile dysfunction, 1 hour before sexual activity, # 6 tablet, 5 Refills, Maintenance, 03/11/20 14:37:00 EDT, Tablet, [facility] #[id number], 175, cm, 08/24/19 14:14:00 EDT, Height, 81.2, kg, 02/04/19 1:40:00 EDT,... Start Date: 03/11/20 Status: EuhdhifLkk-O-Nbwd oral tablet 1 tablet, By Mouth, Daily, # 30 tablet, 11 Refills, Maintenance, 06/16/19 12:42:00 EST, [facility], 30, TAKE 1 TABLET BY [...] 09/27/19 8:51:00 EDT, Route to Pharmacy Electronically, [facility], 175, cm, 08/24/19 14:14:00 EDT, Height, 81.2, kg, 02/04/19 1:40:00 EDT, Dry Weight Start Date: 09/27/19 Status: OrderedXifaxan 550 mg oral tablet 1 tablet, By Mouth, 2 times a day, # 60 tablet, 0 Refills, Maintenance, 04/16/20 14:45:00 EST, [facility] #[id number], 175, cm, 04/02/20 0:35:00 EDT, [...] Active Vitamin D insufficiency(Confirmed) 08/16/12 Active 1refer [id number] HEP C,b; immune HEP A,3r/o lkroscceoquqohpa3qjzxwb2rwewxjhx counseling6? qkxgxcp2ust RF ANCA,normal immunofixation,8lumbar puncture November 2011,neg lymenormal IGA neg SSA ,SSBnormal methylmalonic acid homocyseine9 legally blind;ggiagbkwyd83cxqeyi echo November 2014 Social History Social History Type Response Smoking Status 10 or more cigarettes (1/2 p ack or more)/day in last 30 days entered on: 02/04/19 Sex
--- OUTSIDE RECORDS SUMMARY | 2022-03-14 03:12 | XMS_ITS | Continuity of Care Document ---
:1975 Author Organization [facility] Address [address] [place] [address]- Care Team Providers Name Role Phone Jany Baig DO Primary Care Physician Encounter [facility] Date(s): 01/01/22 - 01/31/22 [facility] [address] [place] [address]- Allergies, Adverse Reactions, Alerts Substance Reaction Severity Status ibuprofen1 Hx of GI Bleed Active aspirin2 Hx GI Bleed Active Tylenol3 Cirrhosis Active NSAIDs Active 1pt advised not to take NSAIDs or Tylenol due to underlying liver disease. Also had GI side effects when took too much aspirin in the past.2pt took too much in the past and had GI side cejxafy1ck advised not to take d/t underlying liver [...] acel (oldterm) 08/02/12 Given 1Result Comment: [04/29/2017] [id number] Note: [id number] Note: 3 [id number] Note: #2 Medications acetaminophen 500 mg oral tablet 1 tablet, By Mouth, 4 times a day, PRN NEEDED FOR PAIN, MAX 4, PER DAY (VIAL., # 50 tablet, 0 Refills, [facility], 175, cm, 01/06/22 10:34:00 EDT, Height, 78.3, kg, 12/26/21 19:05:00 EDT, Dry Weight Start Date: 01/28/22 Status: OrderedamLODIPine 5 mg oral tablet 5 mg, 1, tablet, By Mouth, Daily, # 30 tablet, Refills 5, Tot. Refills 5, Maintenance, 10/21/21 10:15:00 EDT, [facility], Partial fill upon patient request if the prescription is for a schedule II opioid drug.... Start Date: 10/21/21 Status: OrderedCo Q-10 100 mg oral capsule 1 capsule, By Mouth, 4 times a day, # 120 capsule, 6 Refills, [facility], 174, cm, 02/27/21 15:17:00 EDT, Height, [...] A DAY, # 16 Gm, 5 Refills, [facility],30, USE 1 SPRAY INTO EACH NOSTRIL TWICE A DAY, 174, cm, 07/14/21 8:16:00 EST, Height, 81, kg, 02/27/21 14:06:00 EDT, Dry Weight Start Date: 08/04/21 Status: Orderedfolic acid 1 mg oral tablet 1 mg, 1, tablet, By Mouth, Daily, # 90 tablet, Refills 4, Tot. Refills 4, Maintenance, 10/27/21 10:40:00 EDT, Route to Pharmacy Electronically, [facility], Partial fill upon patient request if the prescription is for a schedule II opioid drug.... Start Date: 10/27/21 Stop Date: 01/20/23 Status: Orderedfurosemide 20 mg oral tablet 1, tablet, By Mouth, Daily, # 30 tablet, Refills 0, Route to Pharmacy Electronically, [facility], 175, cm, 01/06/22 10:34:00 EDT, Height, 78.3, kg, 12/26/21 19:05:00 EDT, Dry Weight Start Date: 01/21/22 Status: OrderedhydrOXYzine hydrochloride 25 mg oral tablet 1 TO 2 TABLETS, By Mouth, 3 times a day, PRN NEEDED FOR ANXIETY (VIAL), # 60 tablet, 0 Refills, [facility], 175, cm, 01/06/22 10:34:00 EDT, Height, 78.3, kg, 12/26/21 19:05:00 EDT, Dry Weight Start Date: 01/28/22 Status: Orderedlactulose 10 gm/15 ml oral syrup See Instructions, TAKE 30ML BY MOUTH THREE TIMES DAILY NEEDED TO ACHEIVE 3-4 BOWL MOVEMENTS PER DAY, # 3,000 mL, 10 Refills, [facility], 30, TAKE 30ML BY MOUTH THREE TIMES DAILY NEEDED TOACHEIVE 3-4 BOWL MOVEMENTS PER DAY, 174, cm, 02/12... Start Date: 07/02/21 Status: Orderedlidocaine 0.5% topical gel 1 application, Topically, 3 times a day, # 120 Gm, 0 Refills, Acute 12/30/22 17:23:00 EDT, 12/30/21 17:23:00 EDT, Gel, [facility], Partial fill upon patient request if the prescription is for aschedule II opioid drug., 1 application Topically... Start Date: 12/30/21 Stop Date: 12/30/22 Status: OrderedLidoderm 5% film 1 patch, Topically, Daily, remove patches after 12 hours NSAIDS contraindicated High dose tylenol contraindicated, # 30 patch, 5 Refills, Maintenance, 12/26/21 9:33:00 EDT, [facility], Partial fill upon patient request if the prescription i... Start Date: 12/26/21 Status: Orderedmagnesium oxide 400 mg oral tablet 1 tablet, By Mouth, 2 times a day, # 60 tablet, 0 Refills, [facility], 175, cm, 01/06/22 10:34:00 EDT, Height, 78.3, kg, 12/26/21 19:05:00 EDT, Dry Weight Start Date: 01/21/22 Status: OrderedMelatonin 3 mg oral tablet 1 tablet, By Mouth, Daily at bedtime, PRN NEEDED FOR INSOMNIA (PACKAGE IN TRAY), # 60 tablet, 5 Refills, Maintenance, 06/02/21 16:17:00 EST, [facility], 28, 1 tablet By Mouth Daily [...] Refills, Maintenance, 01/28/22 10:17:00 EDT, ER Tablet, [facility], Partial fill upon patient request if the prescription is for a schedule IIopioid drug., 175, cm, 01/06/22 10:34:00 EDT, Hei... Start Date: 01/28/22 Stop Date: 03/29/22 Status: Orderedpyridoxine 50 mg oral tablet 50 mg, 1, tablet, By Mouth, Daily, for 90 days, # 90 tablet, Refills 4, Tot. Refills 4, Acute 01/15/23 11:42:00 EDT, 10/22/21 11:42:00 EDT, Route to Pharmacy Electronically, [facility], Partialfill upon patient request if the prescription is... Start Date: 10/22/21 Stop Date: 01/15/23 Status: OrderedR aircast ankle-stirrup support brace R aircast ankle-stirrup support brace, See Instructions, # 1 each, Refills 0, Tot. Refills 0, Maintenance, Dx: R inversion ankle sprain s93.409a, 01/06/22 12:31:00 EDT, Supply Start Date: 01/06/22 Status: ZezjdhiMmx-Y-Nghb oral tablet 1 tablet, By Mouth, Daily, # 90 tablet, 9 Refills, [facility], 28, TAKE 1 TABLET BY MOUTH ONCE A DAY, 174, cm, 07/14/21 8:16:00 EST, Height, 81, kg, 02/27/21 14:06:00 EDT, Dry Weight Start Date: 07/22/21 Status: OrderedtraZODone 50 mg oral tablet See Instructions, TAKE 1 TO 2 TABLETS BY MOUTH AT BEDTIME (ONE DOSE IN VIAL), # 60 tablet, Refills 0, Instructions Replace Required Details, Route to Pharmacy Electronically, [facility], 175, cm, 01/06/22 10:34:00 EDT, Height, 78.3, kg, ... Start Date: 01/30/22 Status: OrderedtraZODone 50 mg oral tablet See Instructions, TAKE 2-3 TABLETS BY MOUTH AT BEDTIME (ONE DOSE IN VIAL), # 90 tablet, Refills 5, Tot. Refills 5, Maintenance, 12/26/21 9:21:00 EDT, Instructions Replace Required Details, Route to Pharmacy Electronically, [facility], 170, cm,... Start Date: 12/26/21 Status: OrderedVitamin B1 100 mg oral tablet 1, tablet, By Mouth, Daily, # 90 tablet, Refills 0, Route to Pharmacy Electronically, [facility], 170, cm, 11/12/21 10:02:00 EDT, Height, 78, kg, 11/04/21 12:03:00 EDT, Dry Weight Start Date: 12/24/21 Status: OrderedXifaxan 550 mg oral tablet 1 tablet, By Mouth, 2 times a day, # 60 tablet, 2 Refills, [facility], 175, cm, 01/06/22 10:34:00 EDT, Height, [...] Active Vitamin D insufficiency(Confirmed) 08/16/12 Active 1refer [id number] HEP C,b; immune HEP A,3r/o pasadazfshhmasjj4lfpjad9bhrhzxzw counseling6? [id number] RF ANCA,normal immunofixation,8lumbar puncture November 2011,neg lymenormal IGA neg SSA ,SSBnormal methylmalonic acid homocyseine9 legally blind;fvhpbfyznv19zqjgle echo November 2014 Social History Social History Type Response Smoking Status 10 or more cigarettes (1/2 p ack or more)/day in last 30 days entered on: 02/04/19 Sex
--- OUTSIDE RECORDS SUMMARY | 2022-03-14 03:12 | XMS_ITS | Continuity of Care Document ---
:1975 Author Organization [facility] Address [address] [place] [address], [address] [place] [address]- Care Team Providers Name Role Phone Jany Baig DO Primary Care Physician [facility]counter [facility] Date(s): 12/03/20 - 01/02/[address], [address] [place] [address]- Allergies, Adverse Reactions, Alerts Substance Reaction Severity Status ibuprofen1 Hx of GI Bleed Active aspirin2 Hx GI Bleed Active Tylenol3 Cirrhosis Active NSAIDs Active 1pt advised not to take NSAIDs or Tylenol due to underlying liver disease. Also had GI side effects when took too much aspirin in the past.2pt took too much in the past and had GI side [id number] advised not to take d/t underlying liver [...] 08/02/12 Given 1Admin Note: #22Result Comment: [04/29/2017] [id number] Note: [id number] Admin Note: 3 RDINJ Medications baclofen 10 mg oral tablet 1, tablet, By Mouth, 3 times a day, # 90 tablet, Refills 0, Tot. Refills 0, Maintenance, 12/25/20 8:36:00 EDT, Route to Pharmacy Electronically, [facility], 178, cm, 12/03/20 13:52:00 EDT, Height, 81.4, kg, 12/03/20 13:52:00 EDT, Dry Weight Start Date: 12/25/20 Status: Orderedchantix 1mg tablet 1 tablet, By Mouth, 2 times a day, # 56 tablet, 0 Refills, Acute, 11/22/20 16:13:00 EDT, [facility], 178, cm, 11/12/20 15:32:00 EDT, Height, 84.9, kg, 08/31/20 1:07:00 EDT, Dry Weight Start Date: 11/22/20 Status: OrderedCo Q-10 100 mg oral capsule See Instructions, TAKE 1 CAPSULE BY MOUTH FOUR TIMES DAILY, # 120 capsule, 7 Refills, Maintenance, [facility], 178, cm, 10/22/20 13:17:00 EDT, Height, 84.9, kg, 08/31/20 1:07:00 EDT, Dry Weight Start Date: 11/01/20 Status: OrderedCo Q-10 100 mg oral capsule 1 capsule, By Mouth, 4 times a day, # 120 capsule, 11 Refills, Maintenance, 11/21/19 10:36:00 EDT, [facility]/pharmacy #[id number], 175, cm, 08/24/19 14:14:00 EDT, Height, 81.2, kg, 02/04/19 1:40:00 EDT, Dry Weight Start Date: 11/21/19 Stop Date: 11/15/20 Status: Orderedfluticasone 50 mcg/inh nasal spray See Instructions, SPRAY 1 SPRAY INTO EACH NOSTRIL TWICE A DAY, # 16 Gm, 5 Refills, 07/09/20 11:38:00EST, [facility], 30, SPRAY 1 SPRAY INTO EACH NOSTRIL TWICE A DAY, 175, cm, 04/02/20 0:35:00 EDT, Height, 100, kg, 04/02/20 0:35:00 EDT, Dry We... Start Date: 07/09/20 Status: Orderedgabapentin 600 mg oral tablet 1 tablet, By Mouth, 4 times a day, # 120 tablet, 0 Refills, Maintenance, 12/25/20 8:36:00 EDT, [facility], 178, cm, 12/03/20 13:52:00 EDT, Height, 81.4, kg, 12/03/20 13:52:00 EDT, Dry Weight Start Date: 12/25/20 Status: OrderedhydrOXYzine hydrochloride 25 mg oral tablet 1 TO 2 TABLETS, By Mouth, 3 times a day, PRN NEEDED FOR ANXIETY (VIAL), # 60 tablet, 3 Refills, Maintenance, 10/07/20 16:49:00 EDT, [facility], 178, cm, 08/31/20 11:25:00 EDT, Height, 84.9, kg, 08/31/20 1:07:00 EDT, Dry Weight Start Date: 10/07/20 Status: OrderedKeppra 500 mg oral tablet 1 tablet = 500 mg, By Mouth, 2 times a day, # 14 tablet, 0 Refills, Maintenance, 11/01/20 11:59:00 EDT, Tablet, [facility], Partial fill upon patient request if the prescription is for a schedule II opioid drug., 178, cm, 10/22/20 13:17:... Start Date: 11/01/20 Stop Date: 11/08/20 Status: Orderedmelatonin 3 mg oral tablet 1 tablet = 3 mg, By Mouth, Daily at bedtime, PRN for insomnia, # 60 tablet, 4 Refills, Maintenance, 07/18/20 17:30:00 EST, Tablet, [facility], 175, cm, 04/02/20 0:35:00 [...] 1 Refills, Maintenance, 10/06/19 15:57:00 EDT, Tablet, [facility], 175, cm, 08/24/19 14:14:00 EDT, Height, 81.2, kg, 02/04/19 1:40:00 EDT, Dry Weight Start Date: 10/06/19 Status: Orderedsertraline 50 mg oral tablet 1 tablet, By Mouth, Daily, TAKE ALONG WITH A 100MG TABLET to equal 150mg daily, # 90 tablet, 1 Refills, Maintenance, 10/06/19 15:57:00 EDT, [facility], 175, cm, 08/24/19 14:14:00 EDT, Height, 81.2, kg, 02/04/19 1:40:00 EDT, Dry Weight Start Date: 10/06/19 Status: Orderedsildenafil 50 mg oral tablet 1 tablet = 50 mg, By Mouth, Daily, PRN erectile dysfunction, 1 hour before sexual activity, # 6 tablet, 5 Refills, Maintenance, 03/11/20 14:37:00 EDT, Tablet, [facility]/pharmacy #[id number], 175, cm, 08/24/19 14:14:00 EDT, Height, 81.2, kg, 02/04/19 1:40:00 EDT,... Start Date: 03/11/20 Status: BuxqlwdMwp-B-Knhy oral tablet See Instructions, TAKE 1 TABLET BY MOUTH ONCE A DAY, # 30 tablet, 10 Refills, [facility], TAKE 1 TABLET BY MOUTH [...] Refills, Maintenance, 10/22/20 17:52:00 EDT, Tablet, [facility]/pharmacy #[id number], Partial fill upon patient request if [...] Replace Required Details, Route to Pharmacy Electronically, [facility], 178, cm, 10/22/20... Start Date: 11/01/20 Status: OrderedVitamin B1 100 mg oral tablet 1, tablet, By Mouth, Daily, # 90 tablet, Refills 2, Tot. Refills 0, Acute, 09/05/20 17:32:00 EDT, Route to Pharmacy Electronically, [facility], 178, cm, 08/31/20 11:25:00 EDT, Height, 84.9, kg,08/31/20 1:07:00 EDT, Dry Weight Start Date: 09/05/20 Status: OrderedXifaxan 550 mg oral tablet 1 tablet, By Mouth, 2 times a day, # 60 tablet, 0 Refills, Maintenance, 04/16/20 14:45:00 EST, [facility]/pharmacy #[id number], 175, cm, 04/02/20 0:35:00 EDT, Height, [...] Active Vitamin D insufficiency(Confirmed) 08/16/12 Active 1refer [id number] HEP C,b; immune HEP A,3r/o cychmzpxkdwthmzj2lronqu6kizlhsyg counseling6? [id number] RF ANCA,normal immunofixation,8lumbar puncture November 2011,neg lymenormal IGA neg SSA ,SSBnormal methylmalonic acid homocyseine9 legally blind;[id number] echo November 2014 Social History Social History Type Response Smoking Status 10 or more cigarettes (1/2 p ack or more)/day in last 30 days entered on: 02/04/19 Sex
--- OUTSIDE RECORDS SUMMARY | 2022-03-14 03:12 | XMS_ITS | Continuity of Care Document ---
:1975 Author Organization [facility] Address [address] [place] [address]- Care Team Providers Name Role Phone Jany Baig DO Primary Care Physician [facility] Date(s): 12/26/21 - 01/25/22 [facility] [address] [place] [address]- Allergies, Adverse Reactions, Alerts Substance Reaction Severity Status ibuprofen1 Hx of GI Bleed Active aspirin2 Hx GI Bleed Active Tylenol3 Cirrhosis Active NSAIDs Active 1pt advised not to take NSAIDs or Tylenol due to underlying liver disease. Also had GI side effects when took too much aspirin in the past.2pt took too much in the past and had GI side [id number] advised not to take d/t underlying liver [...] acel (oldterm) 08/02/12 Given 1Result Comment: [04/29/2017] [id number] Note: [id number] Note: 3 [id number] Note: #2 Medications acetaminophen 500 mg oral tablet 1 tablet, By Mouth, 4 times a day, PRN NEEDED FOR PAIN, MAX 4, PER DAY (VIAL., # 50 tablet, 0 Refills, [facility], 175, cm, 01/06/22 10:34:00 EDT, Height, 78.3, kg, 12/26/21 19:05:00 EDT, Dry Weight Start Date: 01/21/22 Status: OrderedamLODIPine 5 mg oral tablet 5 mg, 1, tablet, By Mouth, Daily, # 30 tablet, Refills 5, Tot. Refills 5, Maintenance, 10/21/21 10:15:00 EDT, [facility], [facility], Partial fill upon patient request if the prescription is for a schedule II opioid drug.... Start Date: 10/21/21 Status: OrderedCo Q-10 100 mg oral capsule 1 capsule, By Mouth, 4 times a day, # 120 capsule, 6 Refills, [facility], 174, cm, 02/27/21 15:17:00 EDT, [...] A DAY, # 16 Gm, 5 Refills, [facility],30, USE 1 SPRAY INTO EACH NOSTRIL TWICE A DAY, 174, cm, 07/14/21 8:16:00 EST, Height, 81, kg, 02/27/21 14:06:00 EDT, Dry Weight Start Date: 08/04/21 Status: Orderedfolic acid 1 mg oral tablet 1 mg, 1, tablet, By Mouth, Daily, # 90 tablet, Refills 4, Tot. Refills 4, Maintenance, 10/27/21 10:40:00 EDT, Route to Pharmacy Electronically, [facility], Partial fill upon patient request if the prescription is for a schedule II opioid drug.... Start Date: 10/27/21 Stop Date: 01/20/23 Status: Orderedfurosemide 20 mg oral tablet 1, tablet, By Mouth, Daily, # 30 tablet, Refills 0, Route to Pharmacy Electronically, [facility], 175, cm, 01/06/22 10:34:00 EDT, Height, 78.3, kg, 12/26/21 19:05:00 EDT, Dry Weight Start Date: 01/21/22 Status: OrderedhydrOXYzine hydrochloride 25 mg oral tablet 1 TO 2 TABLETS, By Mouth, 3 times a day, PRN NEEDED FOR ANXIETY (VIAL), # 60 tablet, 0 Refills, [facility], 175, cm, 01/06/22 10:34:00 EDT, Height, 78.3, kg, 12/26/21 19:05:00 EDT, Dry Weight Start Date: 01/21/22 Status: Orderedlactulose 10 gm/15 ml oral syrup See Instructions, TAKE 30ML BY MOUTH THREE TIMES DAILY NEEDED TO ACHEIVE 3-4 BOWL MOVEMENTS PER DAY, # 3,000 mL, 10 Refills, [facility], 30, TAKE 30ML BY MOUTH THREE TIMES DAILY NEEDED TOACHEIVE 3-4 BOWL MOVEMENTS PER DAY, 174, cm, 02/12... Start Date: 07/02/21 Status: Orderedlidocaine 0.5% topical gel 1 application, Topically, 3 times a day, # 120 Gm, 0 Refills, Acute 12/30/22 17:23:00 EDT, 12/30/21 17:23:00 EDT, Gel, [facility], Partial fill upon patient request if the prescription is for aschedule II opioid drug., 1 application Topically... Start Date: 12/30/21 Stop Date: 12/30/22 Status: OrderedLidoderm 5% film 1 patch, Topically, Daily, remove patches after 12 hours NSAIDS contraindicated High dose tylenol contraindicated, # 30 patch, 5 Refills, Maintenance, 12/26/21 9:33:00 EDT, [facility], Partial fill upon patient request if the prescription i... Start Date: 12/26/21 Status: Orderedmagnesium oxide 400 mg oral tablet 1 tablet, By Mouth, 2 times a day, # 60 tablet, 0 Refills, [facility], 175, cm, 01/06/22 10:34:00 EDT, Height, 78.3, kg, 12/26/21 19:05:00 EDT, Dry Weight Start Date: 01/21/22 Status: OrderedMelatonin 3 mg oral tablet 1 tablet, By Mouth, Daily at bedtime, PRN NEEDED FOR INSOMNIA (PACKAGE IN TRAY), # 60 tablet, 5 Refills, Maintenance, 06/02/21 16:17:00 EST, [facility], 28, 1 tablet By Mouth [...] Daily, # 60 tablet, 1 Refills, Maintenance, 12/29/21 15:50:00 EDT, ER Tablet, [facility]/pharmacy #[id number], Partial fill upon patient request if the prescription is for a schedule IIopioid drug., 175, cm, 12/26/21 19:05:00 EDT, Hei... Start Date: 12/29/21 Stop Date: 02/27/22 Status: Orderedpyridoxine 50 mg oral tablet 50 mg, 1, tablet, By Mouth, Daily, for 90 days, # 90 tablet, Refills 4, Tot. Refills 4, Acute 01/15/23 11:42:00 EDT, 10/22/21 11:42:00 EDT, Route to Pharmacy Electronically, [facility], Partialfill upon patient request if the prescription is... Start Date: 10/22/21 Stop Date: 01/15/23 Status: OrderedR aircast ankle-stirrup support brace R aircast ankle-stirrup support brace, See Instructions, # 1 each, Refills 0, Tot. Refills 0, Maintenance, Dx: R inversion ankle sprain s93.409a, 01/06/22 12:31:00 EDT, Supply Start Date: 01/06/22 Status: IkjoydhAur-D-Wlkg oral tablet 1 tablet, By Mouth, Daily, # 90 tablet, 9 Refills, [facility], 28, TAKE 1 TABLET BY [...] Details, Route to Pharmacy Electronically, [facility], 170, cm,... Start Date: 12/26/21 Status: OrderedVitamin B1 100 mg oral tablet 1, tablet, By Mouth, Daily, # 90 tablet, Refills 0, Route to Pharmacy Electronically, [facility], 170, cm, 11/12/21 10:02:00 EDT, Height, 78, kg, 11/04/21 12:03:00 EDT, Dry Weight Start Date: 12/24/21 Status: OrderedXifaxan 550 mg oral tablet 1 tablet, By Mouth, 2 times a day, # 60 tablet, 2 Refills, [facility], 175, cm, 01/06/22 10:34:00 EDT, Height, [...] Active Vitamin D insufficiency(Confirmed) 08/16/12 Active 1refer [id number] HEP C,b; immune HEP A,3r/o misuulakmeqvrrzd6inhwjl6pxpjdxpw counseling6? [id number] RF ANCA,normal immunofixation,8lumbar puncture November 2011,neg lymenormal IGA neg SSA ,SSBnormal methylmalonic acid homocyseine9 legally blind;[id number] echo November 2014 Social History Social History Type Response Smoking Status 10 or more cigarettes (1/2 p ack or more)/day in last 30 days entered on: 02/04/19 Sex
--- OUTSIDE RECORDS SUMMARY | 2022-03-14 03:12 | XMS_ITS | Continuity of Care Document ---
:1975 Author Organization [facility] Address [address] [place] [address]- Care Team Providers Name Role Phone Jany Baig DO Primary Care Physician [facility] Date(s): 05/21/20 - 06/20/20 [facility] [address] [place] [address]- Allergies, Adverse Reactions, Alerts Substance Reaction Severity Status ibuprofen1 Hx of GI Bleed Active aspirin2 Hx GI Bleed Active Tylenol3 Cirrhosis Active NSAIDs Active 1pt advised not to take NSAIDs or Tylenol due to underlying liver disease. Also had GI side effects when took too much aspirin in the past.2pt took too much in the past and had GI side [id number] advised not to take d/t underlying liver [...] 08/02/12 Given 1Admin Note: #22Result Comment: [04/29/2017] [id number] Note: [id number] Admin Note: 3 RDINJ Medications baclofen 10 mg oral tablet 10 mg, 1, tablet, By Mouth, 3 times a day, # 90 tablet, Refills 4, Tot. Refills 4, Maintenance, 02/16/20 17:55:00 EDT, Route to Pharmacy Electronically, [facility], 175, cm, 08/24/19 14:14:00 EDT, Height, 81.2, kg, 02/04/19 1:40:00 EDT, Dry We... Start Date: 02/16/20 Stop Date: 07/15/20 Status: Orderedchantix 1mg tablet 1 tablet, By Mouth, 2 times a day, for 12 week(s), # 56 tablet, 0 Refills, Acute, 05/21/20 12:54:00 EST, [facility], 175, cm, 04/02/20 0:35:00 EDT, Height, 100, kg, 04/02/20 0:35:00 EDT, Dry Weight Start Date: 05/21/20 Stop Date: 08/13/20 Status: OrderedCo Q-10 100 mg oral capsule 1 capsule, By Mouth, 4 times a day, # 120 capsule, 11 Refills, Maintenance, 11/21/19 10:36:00 EDT, [facility]/pharmacy #[id number], 175, cm, 08/24/19 14:14:00 EDT, Height, 81.2, kg, 02/04/19 1:40:00 EDT, Dry Weight Start Date: 11/21/19 Stop Date: 11/15/20 Status: OrderedEngerix-B 20 mcg/mL intramuscular suspension = 20 mcg, Intramuscular, Every 30 days, rpt at 1 and 6 months, # 1 mL, 2 Refills, Maintenance, 11/02/19 9:02:00 EDT, Suspension, [facility]/pharmacy #[id number], 175, cm, 08/24/19 14:14:00 EDT, Height, 81.2, kg, 02/04/19 1:40:00 EDT, Dry Weight Start Date: 11/02/19 Status: Orderedfluticasone 50 mcg/inh nasal spray See Instructions, SPRAY 1 SPRAY INTO EACH NOSTRIL TWICE A DAY, # 16 Gm, 5 Refills, 01/26/20 9:52:00 EDT, [facility], 30, SPRAY 1 SPRAY INTO EACH NOSTRIL TWICE A DAY, 175, cm, 08/24/19 14:14:00 EDT, Height, 81.2, kg, 02/04/19 1:40:00 EDT, Dry W... Start Date: 01/26/20 Status: Orderedgabapentin 600 mg oral tablet 1 tablet, By Mouth, 4 times a day, # 120 tablet, 2 Refills, Maintenance, 05/21/20 12:54:00 EST, [facility], 175, cm, 04/02/20 0:35:00 EDT, Height, 100, kg, 04/02/20 0:35:00 EDT, Dry Weight Start Date: 05/21/20 Status: OrderedhydrOXYzine hydrochloride 25 mg oral tablet 1 TO 2 TABLETS, By Mouth, 3 times a day, PRN NEEDED FOR ANXIETY (VIAL), # 60 tablet, 1 Refills, Acute, 05/21/20 12:54:00 EST, [facility], 175, cm, 04/02/20 0:35:00 EDT, [...] 11/25/20 16:37:00 EDT, 12/01/19 16:37:00 EDT, Syrup, [facility], re sent from 10/04/17, 30... [...] 4 Refills, Maintenance, 10/06/19 16:16:00 EDT, Tablet, [facility], 175, cm, 08/24/19 14:14:00 EDT, [...] Gm, 0 Refills, Maintenance, 04/16/20 14:45:00 EST, [facility]/pharmacy #[id number], 8, APPLY TOPICALLY THREE TIMES DAILY [...] 1 Refills, Maintenance, 10/06/19 15:57:00 EDT, Tablet, [facility], 175, cm, 08/24/19 14:14:00 EDT, Height, 81.2, kg, 02/04/19 1:40:00 EDT, Dry Weight Start Date: 10/06/19 Status: Orderedsertraline 50 mg oral tablet 1 tablet, By Mouth, Daily, TAKE ALONG WITH A 100MG TABLET to equal 150mg daily, # 90 tablet, 1 Refills, Maintenance, 10/06/19 15:57:00 EDT, [facility], 175, cm, 08/24/19 14:14:00 EDT, Height, 81.2, kg, 02/04/19 1:40:00 EDT, Dry Weight Start Date: 10/06/19 Status: Orderedsildenafil 50 mg oral tablet 1 tablet = 50 mg, By Mouth, Daily, PRN erectile dysfunction, 1 hour before sexual activity, # 6 tablet, 5 Refills, Maintenance, 03/11/20 14:37:00 EDT, Tablet, [facility]/pharmacy #[id number], 175, cm, 08/24/19 14:14:00 EDT, Height, 81.2, kg, 02/04/19 1:40:00 EDT,... Start Date: 03/11/20 Status: PupgnucSny-N-Ehtx oral tablet 1 tablet, By Mouth, Daily, # 90 tablet, 1 Refills, Maintenance, 05/21/20 9:35:00 EST, [facility], 1 tablet By Mouth Daily, [...] 09/27/19 8:51:00 EDT, Route to Pharmacy Electronically, [facility], 175, cm, 08/24/19 14:14:00 EDT, Height, 81.2, kg, 02/04/19 1:40:00 EDT, Dry Weight Start Date: 09/27/19 Status: OrderedXifaxan 550 mg oral tablet 1 tablet, By Mouth, 2 times a day, # 60 tablet, 0 Refills, Maintenance, 04/16/20 14:45:00 EST, [facility]/pharmacy #[id number], 175, cm, 04/02/20 0:35:00 EDT, Height, [...] Active Vitamin D insufficiency(Confirmed) 08/16/12 Active 1refer [id number] HEP C,b; immune HEP A,3r/o mpatqsmfizmrerhq9ajmhfw2cdfxalui counseling6? [id number] RF ANCA,normal immunofixation,8lumbar puncture November 2011,neg lymenormal IGA neg SSA ,SSBnormal methylmalonic acid homocyseine9 legally blind;[id number] echo November 2014 Social History Social History Type Response Smoking Status 10 or more cigarettes (1/2 p ack or more)/day in last 30 days entered on: 02/04/19 Sex
--- OUTSIDE RECORDS SUMMARY | 2022-03-14 03:12 | XMS_ITS | Continuity of Care Document ---
:[address] [facility] Address [address] [place] [address]- Care Team Providers Name Role Phone Jany Baig DO Primary Care Physician Encounter [facility] [place] Date(s): 02/06/21 - 02/13/21 [facility] [address] [place] [address]- Encounter Diagnosis Alcohol abuse (Discharge Diagnosis) - 02/06/21 Pain, joint, knee, right (Discharge Diagnosis) - 02/06/21 Attending Physician: Anna WILSON, Christine Allergies, Adverse Reactions, Alerts Substance Reaction Severity Status ibuprofen1 Hx of GI Bleed Active aspirin2 Hx GI Bleed Active Tylenol3 Cirrhosis Active NSAIDs Active 1pt advised not to take NSAIDs or Tylenol due to underlying liver disease. Also had GI side effects when took too much aspirin in the past.2pt took too much in the past and had GI side [id number] advised not to take d/t underlying liver [...] 08/02/12 Given 1Admin Note: #22Result Comment: [04/29/2017] [id number] Note: [email or web address] Admin Note: 3 RDINJ Medications baclofen 10 mg oral tablet 1, tablet, By Mouth, 3 times a day, # 90 tablet, Refills 0, Tot. Refills 0, Maintenance, 01/20/21 15:04:00 EDT, Route to Pharmacy Electronically, [facility], 178, cm, 01/07/21 17:59:00 EDT, Height, 81.4, kg, 12/03/20 13:52:00 EDT, Dry Weight Start Date: 01/20/21 Status: OrderedBactrim DS 800 mg-160 mg oral tablet 1 tablet, By Mouth, 2 times a day, for 10 days, # 20 tablet, 0 Refills, Acute 02/16/21 18:00:00 EDT,02/06/21 18:00:00 EDT, Tablet, [facility]/pharmacy #[id number], Partial fill upon patient request if the prescription is for a schedule II opioid drug., 1 tablet B... Start Date: 02/06/21 Stop Date: 02/16/21 Status: Orderedchantix 1mg tablet 1 tablet, By Mouth, 2 times a day, # 56 tablet, 0 Refills, Acute, 11/22/20 16:13:00 EDT, [facility], 178, cm, 11/12/20 15:32:00 EDT, Height, 84.9, kg, 08/31/20 1:07:00 EDT, Dry Weight Start Date: 11/22/20 Status: OrderedCo Q-10 100 mg oral capsule See Instructions, TAKE 1 CAPSULE BY MOUTH FOUR TIMES DAILY, # 120 capsule, 7 Refills, Maintenance, [facility], 178, cm, 10/22/20 13:17:00 EDT, Height, 84.9, kg, 08/31/20 1:07:00 EDT, Dry Weight Start Date: 11/01/20 Status: OrderedCo Q-10 100 mg oral capsule 1 capsule, By Mouth, 4 times a day, # 120 capsule, 11 Refills, Maintenance, 11/21/19 10:36:00 EDT, [facility]/pharmacy #[id number], 175, cm, 08/24/19 14:14:00 EDT, Height, 81.2, kg, 02/04/19 1:40:00 EDT, Dry Weight Start Date: 11/21/19 Stop Date: 11/15/20 Status: Orderedfluticasone 50 mcg/inh nasal spray See Instructions, USE 1 SPRAY INTO EACH NOSTRIL TWICE A DAY, # 16 Gm, 5 Refills, Maintenance, [facility], 30, USE 1 SPRAY INTO EACH NOSTRIL TWICE A DAY, 178, cm, 01/07/21 17:59:00 EDT, Height, 81.4, kg, 12/03/20 13:52:00 EDT, Dry Weight Start Date: 01/17/21 Status: Orderedgabapentin 600 mg oral tablet 1 tablet, By Mouth, 4 times a day, # 120 tablet, 0 Refills, Maintenance, 01/20/21 15:04:00 EDT, [facility], 178, cm, 01/07/21 17:59:00 EDT, Height, 81.4, kg, 12/03/20 13:52:00 EDT, Dry Weight Start Date: 01/20/21 Status: OrderedhydrOXYzine hydrochloride 25 mg oral tablet 1 TO 2 TABLETS, By Mouth, 3 times a day, PRN NEEDED FOR ANXIETY (VIAL), # 60 tablet, 3 Refills, Maintenance, 10/07/20 16:49:00 EDT, [facility], 178, cm, 08/31/20 11:25:00 EDT, Height, 84.9, kg, 08/31/20 1:07:00 EDT, Dry Weight Start Date: 10/07/20 Status: OrderedKeppra 500 mg oral tablet 1 tablet = 500 mg, By Mouth, 2 times a day, # 14 tablet, 0 Refills, Maintenance, 11/01/20 11:59:00 EDT, Tablet, [facility], Partial fill upon patient request if the prescription is for a schedule II opioid drug., 178, cm, 10/22/20 13:17:... Start Date: 11/01/20 Stop Date: 11/08/20 Status: Orderedmelatonin 3 mg oral tablet 1 tablet = 3 mg, By Mouth, Daily at bedtime, PRN for insomnia, # 60 tablet, 4 Refills, Maintenance, 07/18/20 17:30:00 EST, Tablet, [facility], 175, cm, 04/02/20 0:35:00 [...] 1 Refills, Maintenance, 10/06/19 15:57:00 EDT, Tablet, [facility], 175, cm, 08/24/19 14:14:00 EDT, Height, 81.2, kg, 02/04/19 1:40:00 EDT, Dry Weight Start Date: 10/06/19 Status: Orderedsertraline 50 mg oral tablet 1 tablet, By Mouth, Daily, TAKE ALONG WITH A 100MG TABLET to equal 150mg daily, # 90 tablet, 1 Refills, Maintenance, 10/06/19 15:57:00 EDT, [facility], 175, cm, 08/24/19 14:14:00 EDT, Height, 81.2, kg, 02/04/19 1:40:00 EDT, Dry Weight Start Date: 10/06/19 Status: Orderedsildenafil 50 mg oral tablet 1 tablet = 50 mg, By Mouth, Daily, PRN erectile dysfunction, 1 hour before sexual activity, # 6 tablet, 5 Refills, Maintenance, 03/11/20 14:37:00 EDT, Tablet, [facility]/pharmacy #[id number], 175, cm, 08/24/19 14:14:00 EDT, Height, 81.2, kg, 02/04/19 1:40:00 EDT,... Start Date: 03/11/20 Status: RaiyqynCej-K-Wuvg oral tablet See Instructions, TAKE 1 TABLET BY MOUTH ONCE A DAY, # 30 tablet, 10 Refills, Maintenance, [facility], 28, TAKE 1 TABLET BY MOUTH ONCE [...] Refills, Maintenance, 10/22/20 17:52:00 EDT, Tablet, [facility]/pharmacy #[id number], Partial fill upon patient request [...] Replace Required Details, Route to Pharmacy Electronically, [facility], 178, cm, 10/22/20... Start Date: 11/01/20 Status: OrderedVitamin B1 100 mg oral tablet 1, tablet, By Mouth, Daily, # 90 tablet, Refills 2, Tot. Refills 0, Acute, 09/05/20 17:32:00 EDT, Route to Pharmacy Electronically, [facility], 178, cm, 08/31/20 11:25:00 EDT, Height, 84.9, kg,08/31/20 1:07:00 EDT, Dry Weight Start Date: 09/05/20 Status: OrderedXifaxan 550 mg oral tablet 1 tablet, By Mouth, 2 times a day, # 60 tablet, 0 Refills, Maintenance, 04/16/20 14:45:00 EST, [facility]/pharmacy #[id number], 175, cm, 04/02/20 0:35:00 EDT, [...] Active Vitamin D insufficiency(Confirmed) 08/16/12 Active 1refer melay0dje HEP C,b; immune HEP A,3r/o nqzrxwbbuqjpmssk4hksybf8bmrfleko counseling6? [id number] RF ANCA,normal immunofixation,8lumbar puncture November 2011,neg lymenormal IGA neg SSA ,SSBnormal methylmalonic acid homocyseine9 legally blind;[id number] echo November 2014 Diagnosis Diagnosis Type Effective Dates Health Status Clinical In formant Service Alcohol abuse Discharge 02/06/21 Diagnosis Pain, joint, Discharge 02/06/21 knee, right Diagnosis Vital Signs Most recent to oldest [Reference Range]: 1 Height 178 cm (02/06/21 12:55 PM) Weight 86.6 kg (02/06/21 12:55 PM) Pulse Rate [55-90 bpm] 90 bpm (02/06/21 12:55 PM) Body Mass Index [18.5-24.99] 27.33 *H* (02/06/21 12:55 PM) Blood Pressure [90-138/55-84 mm Hg] 130/80 mm Hg (02/06/21 12:55 PM) Temperature [96.8-100.4 DegF] 98.5 DegF (02/06/21 12:55 PM) Temperature Route Temporal (02/06/21 12:55 PM) Social History Social History Type Response Smoking Status 10 or more cigarettes (1/2 p ack or more)/day in last 30 days entered on: 02/04/19 Sex
--- OUTSIDE RECORDS SUMMARY | 2022-03-14 03:12 | XMS_ITS | Continuity of Care Document ---
:1975 Author Organization [facility] Address [address] [place] [address]- Care Team Providers Name Role Phone Jany Baig DO Primary Care Physician Encounter [facility] [place] Date(s): 03/13/20 - 04/12/20 [facility] [address] [place] [address]- [facility] Allergies, Adverse Reactions, Alerts Substance Reaction Severity Status ibuprofen1 Hx of GI Bleed Active aspirin2 Hx GI Bleed Active Tylenol3 Cirrhosis Active NSAIDs Active 1pt advised not to take NSAIDs or Tylenol due to underlying liver disease. Also had GI side effects when took too much aspirin in the past.2pt took too much in the past and had GI side [id number] advised not to take d/t underlying liver [...] 08/02/12 Given 1Admin Note: #22Result Comment: [04/29/2017] [id number] Note: [email or web address] Admin Note: 3 RDINJ Medications baclofen 10 mg oral tablet 10 mg, 1, tablet, By Mouth, 3 times a day, # 90 tablet, Refills 4, Tot. Refills 4, Maintenance, 02/16/20 17:55:00 EDT, Route to Pharmacy Electronically, [facility], 175, cm, 08/24/19 14:14:00 EDT, Height, 81.2, kg, 02/04/19 1:40:00 EDT, Dry We... Start Date: 02/16/20 Stop Date: 07/15/20 Status: Orderedchantix 1mg tablet See Instructions, TAKE 1 TABLET BY MOUTH TWICE A DAY WITH A FULL GLASS OF WATER AND CONTINUE FOR A TOTAL OF 12 WEEKS, # 56 tablet, 0 Refills, Maintenance, 02/16/20 17:54:00 EDT, [facility], 175, cm, 08/24/19 14:14:00 EDT, Height, 81.2, kg, 08/... Start Date: 02/16/20 Status: OrderedCo Q-10 100 mg oral capsule 1 capsule, By Mouth, 4 times a day, # 120 capsule, 11 Refills, Maintenance, 11/21/19 10:36:00 EDT, [facility]/pharmacy #[id number], 175, cm, 08/24/19 14:14:00 EDT, Height, 81.2, kg, 02/04/19 1:40:00 EDT, Dry Weight Start Date: 11/21/19 Stop Date: 11/15/20 Status: OrderedEngerix-B 20 mcg/mL intramuscular suspension = 20 mcg, Intramuscular, Every 30 days, rpt at 1 and 6 months, # 1 mL, 2 Refills, Maintenance, 11/02/19 9:02:00 EDT, Suspension, [facility]/pharmacy #[id number], 175, cm, 08/24/19 14:14:00 EDT, Height, 81.2, kg, 02/04/19 1:40:00 EDT, Dry Weight Start Date: 11/02/19 Status: Orderedfluticasone 50 mcg/inh nasal spray See Instructions, SPRAY 1 SPRAY INTO EACH NOSTRIL TWICE A DAY, # 16 Gm, 5 Refills, 01/26/20 9:52:00 EDT, [facility], 30, SPRAY 1 SPRAY INTO EACH NOSTRIL TWICE A DAY, 175, cm, 08/24/19 14:14:00 EDT, Height, 81.2, kg, 02/04/19 1:40:00 EDT, Dry W... Start Date: 01/26/20 Status: Orderedgabapentin 600 mg oral tablet 1 tablet = 600 mg, By Mouth, 4 times a day, to replace prior script, # 120 tablet, 3 Refills, Maintenance, 01/26/20 14:28:00 EDT, Tablet, [facility], 175, cm, 08/24/19 14:14:00 EDT, [...] 11/25/20 16:37:00 EDT, 12/01/19 16:37:00 EDT, Syrup, [facility], re sent from 10/04/17, 30... [...] 4 Refills, Maintenance, 10/06/19 16:16:00 EDT, Tablet, [facility], 175, cm, 08/24/19 14:14:00 EDT, Height, 81.2, kg, 02/04/19 1:40:00 EDT, Dry Weight Start Date: 10/06/19 Status: Orderedmupirocin 2% topical ointment See Instructions, APPLY TOPICALLY THREE TIMES DAILY (APPLY A THIN FILM), # 22 Gm, 0 Refills, Maintenance, 03/21/20 9:50:00 EDT, [facility], 8, APPLY TOPICALLY THREE TIMES DAILY (APPLY A THIN FILM), 175, cm, 08/24/19 14:14:00 EDT, Height, 81.2,... Start Date: 03/21/20 Status: Orderedmupirocin 2% topical ointment See Instructions, APPLY TOPICALLY THREE TIMES DAILY (APPLY A THIN FILM), # 22 Gm, 0 Refills, Maintenance, 01/26/20 14:28:00 EDT, [facility], 8, APPLY TOPICALLY THREE TIMES [...] 1 Refills, Maintenance, 10/06/19 15:57:00 EDT, Tablet, [facility], 175, cm, 08/24/19 14:14:00 EDT, Height, 81.2, kg, 02/04/19 1:40:00 EDT, Dry Weight Start Date: 10/06/19 Status: Orderedsertraline 50 mg oral tablet 1 tablet, By Mouth, Daily, TAKE ALONG WITH A 100MG TABLET to equal 150mg daily, # 90 tablet, 1 Refills, Maintenance, 10/06/19 15:57:00 EDT, [facility], 175, cm, 08/24/19 14:14:00 EDT, Height, 81.2, kg, 02/04/19 1:40:00 EDT, Dry Weight Start Date: 10/06/19 Status: Orderedsildenafil 50 mg oral tablet 1 tablet = 50 mg, By Mouth, Daily, PRN erectile dysfunction, 1 hour before sexual activity, # 6 tablet, 5 Refills, Maintenance, 03/11/20 14:37:00 EDT, Tablet, [facility]/pharmacy #[id number], 175, cm, 08/24/19 14:14:00 EDT, Height, 81.2, kg, 02/04/19 1:40:00 EDT,... Start Date: 03/11/20 Status: JokwqsdWfi-C-Ywcz oral tablet 1 tablet, By Mouth, Daily, # 30 tablet, 11 Refills, Maintenance, 06/16/19 12:42:00 EST, [facility], 30, TAKE 1 TABLET BY [...] 09/27/19 8:51:00 EDT, Route to Pharmacy Electronically, [facility], 175, cm, 08/24/19 14:14:00 EDT, Height, 81.2, kg, 02/04/19 1:40:00 EDT, Dry Weight Start Date: 09/27/19 Status: OrderedXifaxan 550 mg oral tablet See Instructions, TAKE 1 TABLET BY MOUTH TWICE A DAY, # 60 tablet, 0 Refills, 02/16/20 17:54:00 EDT,[facility], 175, cm, 08/24/19 14:14:00 EDT, Height, 81.2, kg, 02/04/19 1:40:00 EDT, Dry Weight Start Date: 02/16/20 Status: OrderedXifaxan 550 mg oral tablet 1 tablet, By Mouth, 2 times a day, # 60 tablet, 0 Refills, Maintenance, 03/21/20 9:51:00 EDT, [facility], 175, cm, 08/24/19 14:14:00 EDT, Height, [...] to Active APTU in 06/2015(Confirmed) Neuropathy(Confirmed)6 Active NAA LUISA (obstructive sleep Active apnea)(Confirmed) Sherie's Optic neuropathy(Confirmed)7, Active 8, 9 Overweight(Confirmed) Active Heart murmur, systolic(Confirmed)10 Active Vitamin D insufficiency(Confirmed) 08/16/12 Active 1refer [id number] HEP C,b; immune HEP A,3r/o xpjtitgfunkcfztj3crkjds7rcxrqrqf counseling6? [id number] RF ANCA,normal immunofixation,8lumbar puncture November 2011,neg lymenormal IGA neg SSA ,SSBnormal methylmalonic acid homocyseine9 legally blind;[id number] echo November 2014 Social History Social History Type Response Smoking Status 10 or more cigarettes (1/2 p ack or more)/day in last 30 days entered on: 02/04/19 Sex
--- OUTSIDE RECORDS SUMMARY | 2022-03-14 03:12 | XMS_ITS | Continuity of Care Document ---
:1975 Author Organization [facility] Address [address] [place] [address]- Care Team Providers Name Role Phone Jany Baig DO Primary Care Physician Encounter [facility] [place] Date(s): 03/19/20 - 04/18/20 [facility] [address] [place] [address]- Allergies, Adverse Reactions, Alerts Substance Reaction Severity Status ibuprofen1 Hx of GI Bleed Active aspirin2 Hx GI Bleed Active Tylenol3 Cirrhosis Active NSAIDs Active 1pt advised not to take NSAIDs or Tylenol due to underlying liver disease. Also had GI side effects when took too much aspirin in the past.2pt took too much in the past and had GI side cnalxvx0qr advised not to take d/t underlying liver [...] 08/02/12 Given 1Admin Note: #22Result Comment: [04/29/2017] [id number] Note: [email or web address] Admin Note: 3 RDINJ Medications baclofen 10 mg oral tablet 10 mg, 1, tablet, By Mouth, 3 times a day, # 90 tablet, Refills 4, Tot. Refills 4, Maintenance, 02/16/20 17:55:00 EDT, Route to Pharmacy Electronically, [facility], 175, cm, 08/24/19 14:14:00 EDT, Height, 81.2, kg, 02/04/19 1:40:00 EDT, Dry We... Start Date: 02/16/20 Stop Date: 07/15/20 Status: Orderedchantix 1mg tablet See Instructions, TAKE 1 TABLET BY MOUTH TWICE A DAY WITH A FULL GLASS OF WATER AND CONTINUE FOR A TOTAL OF 12 WEEKS, # 56 tablet, 0 Refills, Maintenance, 04/16/20 14:45:00 EST, [facility]/pharmacy #[id number], 175, cm, 04/02/20 0:35:00 EDT, Height, [...] 16 Gm, 5 Refills, 01/26/20 9:52:00 EDT, [facility], 30, SPRAY 1 SPRAY INTO EACH NOSTRIL TWICE A DAY, 175, cm, 08/24/19 14:14:00 EDT, Height, 81.2, kg, 02/04/19 1:40:00 EDT, Dry W... Start Date: 01/26/20 Status: Orderedgabapentin 600 mg oral tablet 1 tablet = 600 mg, By Mouth, 4 times a day, to replace prior script, # 120 tablet, 3 Refills, Maintenance, 01/26/20 14:28:00 EDT, Tablet, [facility], 175, cm, 08/24/19 14:14:00 EDT, [...] 11/25/20 16:37:00 EDT, 12/01/19 16:37:00 EDT, Syrup, [facility], re sent from 10/04/17, 30... [...] 4 Refills, Maintenance, 10/06/19 16:16:00 EDT, Tablet, [facility], 175, cm, 08/24/19 14:14:00 EDT, Height, 81.2, kg, 02/04/19 1:40:00 EDT, Dry Weight Start Date: 10/06/19 Status: Orderedmupirocin 2% topical ointment See Instructions, APPLY TOPICALLY THREE TIMES DAILY (APPLY A THIN FILM), # 22 Gm, 0 Refills, Maintenance, 04/16/20 14:45:00 EST, [facility]/pharmacy #[id number], 8, APPLY TOPICALLY THREE TIMES DAILY [...] 1 Refills, Maintenance, 10/06/19 15:57:00 EDT, Tablet, [facility], 175, cm, 08/24/19 14:14:00 EDT, Height, 81.2, kg, 02/04/19 1:40:00 EDT, Dry Weight Start Date: 10/06/19 Status: Orderedsertraline 50 mg oral tablet 1 tablet, By Mouth, Daily, TAKE ALONG WITH A 100MG TABLET to equal 150mg daily, # 90 tablet, 1 Refills, Maintenance, 10/06/19 15:57:00 EDT, [facility], 175, cm, 08/24/19 14:14:00 EDT, Height, 81.2, kg, 02/04/19 1:40:00 EDT, Dry Weight Start Date: 10/06/19 Status: Orderedsildenafil 50 mg oral tablet 1 tablet = 50 mg, By Mouth, Daily, PRN erectile dysfunction, 1 hour before sexual activity, # 6 tablet, 5 Refills, Maintenance, 03/11/20 14:37:00 EDT, Tablet, [facility]/pharmacy #[id number], 175, cm, 08/24/19 14:14:00 EDT, Height, 81.2, kg, 02/04/19 1:40:00 EDT,... Start Date: 03/11/20 Status: ZklsjxcMjt-E-Upea oral tablet 1 tablet, By Mouth, Daily, # 30 tablet, 11 Refills, Maintenance, 06/16/19 12:42:00 EST, [facility], 30, TAKE 1 TABLET BY [...] 09/27/19 8:51:00 EDT, Route to Pharmacy Electronically, [facility], 175, cm, 08/24/19 14:14:00 EDT, Height, 81.2, kg, 02/04/19 1:40:00 EDT, Dry Weight Start Date: 09/27/19 Status: OrderedXifaxan 550 mg oral tablet 1 tablet, By Mouth, 2 times a day, # 60 tablet, 0 Refills, Maintenance, 04/16/20 14:45:00 EST, [facility]/pharmacy #[id number], 175, cm, 04/02/20 0:35:00 EDT, Height, [...] Active Vitamin D insufficiency(Confirmed) 08/16/12 Active 1refer ipzgs5wpp HEP C,b; immune HEP A,3r/o rdftjoifwxddiibw0xvzlbi5cfsvqfvr counseling6? sydvzvx7wfe RF ANCA,normal immunofixation,8lumbar puncture November 2011,neg lymenormal IGA neg SSA ,SSBnormal methylmalonic acid homocyseine9 legally blind;[id number] echo November 2014 Social History Social History Type Response Smoking Status 10 or more cigarettes (1/2 p ack or more)/day in last 30 days entered on: 02/04/19 Sex
--- OUTSIDE RECORDS SUMMARY | 2022-03-14 03:12 | XMS_ITS | Continuity of Care Document ---
:1975 Author Organization [address], [address] [place] [address]- Care Team Providers Name Role Phone Jany Baig DO Primary Care Physician Encounter [facility] Date(s): 10/01/20 - 11/01/[address], [address] [place] [address]- Attending Physician: Not on Staff, Attending MD Allergies, Adverse Reactions, Alerts Substance Reaction Severity Status ibuprofen1 Hx of GI Bleed Active aspirin2 Hx GI Bleed Active Tylenol3 Cirrhosis Active NSAIDs Active 1pt advised not to take NSAIDs or Tylenol due to underlying liver disease. Also had GI side effects when took too much aspirin in the past.2pt took too much in the past and had GI side [id number] advised not to take d/t underlying liver [...] 08/02/12 Given 1Admin Note: #22Result Comment: [04/29/2017] [id number] Note: [email or web address] Admin Note: 3 RDINJ Medications baclofen 10 mg oral tablet 1, tablet, By Mouth, 3 times a day, # 90 tablet, Refills 0, Tot. Refills 0, Maintenance, 10/07/20 16:49:00 EDT, Route to Pharmacy Electronically, [facility], 178, cm, 08/31/20 11:25:00 EDT, Height, 84.9, kg, 08/31/20 1:07:00 EDT, Dry Weight Start Date: 10/07/20 Status: Orderedchantix 1mg tablet 1 tablet, By Mouth, 2 times a day, # 56 tablet, 0 Refills, Maintenance, 11/01/20 15:08:00 EDT, [facility], 178, cm, 10/22/20 13:17:00 EDT, Height, 84.9, kg, 08/31/20 1:07:00 EDT, Dry Weight Start Date: 11/01/20 Status: OrderedCo Q-10 100 mg oral capsule See Instructions, TAKE 1 CAPSULE BY MOUTH FOUR TIMES DAILY, # 120 capsule, 7 Refills, Maintenance, [facility], 178, cm, 10/22/20 13:17:00 EDT, Height, 84.9, kg, 08/31/20 1:07:00 EDT, Dry Weight Start Date: 11/01/20 Status: OrderedCo Q-10 100 mg oral capsule 1 capsule, By Mouth, 4 times a day, # 120 capsule, 11 Refills, Maintenance, 11/21/19 10:36:00 EDT, [facility]/pharmacy #[id number], 175, cm, 08/24/19 14:14:00 EDT, Height, 81.2, kg, 02/04/19 1:40:00 EDT, Dry Weight Start Date: 11/21/19 Stop Date: 11/15/20 Status: Orderedfluticasone 50 mcg/inh nasal spray See Instructions, SPRAY 1 SPRAY INTO EACH NOSTRIL TWICE A DAY, # 16 Gm, 5 Refills, 07/09/20 11:38:00EST, [facility], 30, SPRAY 1 SPRAY INTO EACH NOSTRIL TWICE A DAY, 175, cm, 04/02/20 0:35:00 EDT, Height, 100, kg, 04/02/20 0:35:00 EDT, Dry We... Start Date: 07/09/20 Status: Orderedgabapentin 600 mg oral tablet 1 tablet, By Mouth, 4 times a day, # 120 tablet, 0 Refills, Maintenance, 10/07/20 16:49:00 EDT, [facility], 178, cm, 08/31/20 11:25:00 EDT, Height, 84.9, kg, 08/31/20 1:07:00 EDT, Dry Weight Start Date: 10/07/20 Status: OrderedhydrOXYzine hydrochloride 25 mg oral tablet 1 TO 2 TABLETS, By Mouth, 3 times a day, PRN NEEDED FOR ANXIETY (VIAL), # 60 tablet, 3 Refills, Maintenance, 10/07/20 16:49:00 EDT, [facility], 178, cm, 08/31/20 11:25:00 EDT, Height, 84.9, kg, 08/31/20 1:07:00 EDT, Dry Weight Start Date: 10/07/20 Status: OrderedKeppra 500 mg oral tablet 1 tablet = 500 mg, By Mouth, 2 times a day, # 14 tablet, 0 Refills, Maintenance, 11/01/20 11:59:00 EDT, Tablet, [facility], Partial fill upon patient [...] 11/25/20 16:37:00 EDT, 12/01/19 16:37:00 EDT, Syrup, [facility], re sent from 10/04/17, 30... Start Date: 12/01/19 Stop Date: 11/25/20 Status: Orderedmelatonin 3 mg oral tablet 1 tablet = 3 mg, By Mouth, Daily at bedtime, PRN for insomnia, # 60 tablet, 4 Refills, Maintenance, 07/18/20 17:30:00 EST, Tablet, [facility], 175, cm, 04/02/20 0:35:00 [...] 1 Refills, Maintenance, 10/06/19 15:57:00 EDT, Tablet, [facility], 175, cm, 08/24/19 14:14:00 EDT, Height, 81.2, kg, 02/04/19 1:40:00 EDT, Dry Weight Start Date: 10/06/19 Status: Orderedsertraline 50 mg oral tablet 1 tablet, By Mouth, Daily, TAKE ALONG WITH A 100MG TABLET to equal 150mg daily, # 90 tablet, 1 Refills, Maintenance, 10/06/19 15:57:00 EDT, [facility], 175, cm, 08/24/19 14:14:00 EDT, Height, 81.2, kg, 02/04/19 1:40:00 EDT, Dry Weight Start Date: 10/06/19 Status: Orderedsildenafil 50 mg oral tablet 1 tablet = 50 mg, By Mouth, Daily, PRN erectile dysfunction, 1 hour before sexual activity, # 6 tablet, 5 Refills, Maintenance, 03/11/20 14:37:00 EDT, Tablet, [facility]/pharmacy #[id number], 175, cm, 08/24/19 14:14:00 EDT, Height, 81.2, kg, 02/04/19 1:40:00 EDT,... Start Date: 03/11/20 Status: TudqbqmNzm-C-Itzj oral tablet See Instructions, TAKE 1 TABLET BY MOUTH ONCE A DAY, # 30 tablet, 10 Refills, Maintenance, [facility], 28, TAKE 1 TABLET BY MOUTH ONCE [...] Maintenance, 10/22/20 17:52:00 EDT, Tablet, [facility]/pharmacy #[id number], Partial fill upon patient request if [...] Replace Required Details, Route to Pharmacy Electronically, [facility], 178, cm, 10/22/20... Start Date: 11/01/20 Status: OrderedVitamin B1 100 mg oral tablet 1, tablet, By Mouth, Daily, # 90 tablet, Refills 2, Tot. Refills 0, Acute, 09/05/20 17:32:00 EDT, Route to Pharmacy Electronically, [facility], 178, cm, 08/31/20 11:25:00 EDT, Height, 84.9, kg,08/31/20 1:07:00 EDT, Dry Weight Start Date: 09/05/20 Status: OrderedXifaxan 550 mg oral tablet 1 tablet, By Mouth, 2 times a day, # 60 tablet, 0 Refills, Maintenance, 04/16/20 14:45:00 EST, [facility]/pharmacy #[id number], 175, cm, 04/02/20 0:35:00 EDT, Height, [...] Active Vitamin D insufficiency(Confirmed) 08/16/12 Active 1refer [id number] HEP C,b; immune HEP A,3r/o vbnsrmigksdczriq8grmytw9zitwwptu counseling6? [id number] RF ANCA,normal immunofixation,8lumbar puncture November 2011,neg lymenormal IGA neg SSA ,SSBnormal methylmalonic acid homocyseine9 legally blind;[id number] echo November 2014 Social History Social History Type Response Smoking Status 10 or more cigarettes (1/2 p ack or more)/day in last 30 days entered on: 02/04/19 Sex
--- OUTSIDE RECORDS SUMMARY | 2022-03-14 03:12 | XMS_ITS | Continuity of Care Document ---
:1975 Author Organization [facility] Address [address] [place] [address]- Care Team Providers Name Role Phone Jany Baig DO Primary Care Physician Encounter [facility] [place] Date(s): 08/30/20 - 09/29/20 [facility] [address] [place] [address]- Allergies, Adverse Reactions, Alerts Substance Reaction Severity Status ibuprofen1 Hx of GI Bleed Active aspirin2 Hx GI Bleed Active Tylenol3 Cirrhosis Active NSAIDs Active 1pt advised not to take NSAIDs or Tylenol due to underlying liver disease. Also had GI side effects when took too much aspirin in the past.2pt took too much in the past and had GI side [id number] advised not to take d/t underlying liver [...] 08/02/12 Given 1Admin Note: #22Result Comment: [04/29/2017] [id number] Note: [email or web address] Admin Note: 3 RDINJ Medications baclofen 10 mg oral tablet 1, tablet, By Mouth, 3 times a day, # 90 tablet, Refills 0, Tot. Refills 0, Maintenance, 09/09/20 17:02:00 EDT, Route to Pharmacy Electronically, [facility], 178, cm, 08/31/20 11:25:00 EDT, Height, 84.9, kg, 08/31/20 1:07:00 EDT, Dry Weight Start Date: 09/09/20 Status: Orderedchantix 1mg tablet 1 tablet, By Mouth, 2 times a day, for 12 week(s), # 56 tablet, 0 Refills, Acute, 09/05/20 17:32:00 EDT, [facility], 178, cm, 08/31/20 11:25:00 EDT, Height, 84.9, kg, 08/31/20 1:07:00 EDT, Dry Weight Start Date: 09/05/20 Stop Date: 11/28/20 Status: OrderedCo Q-10 100 mg oral capsule 1 capsule, By Mouth, 4 times a day, # 120 capsule, 11 Refills, Maintenance, 11/21/19 10:36:00 EDT, [facility]/pharmacy #[id number], 175, cm, 08/24/19 14:14:00 EDT, Height, 81.2, kg, 02/04/19 1:40:00 EDT, Dry Weight Start Date: 11/21/19 Stop Date: 11/15/20 Status: OrderedEngerix-B 20 mcg/mL intramuscular suspension = 20 mcg, Intramuscular, Every 30 days, rpt at 1 and 6 months, # 1 mL, 2 Refills, Maintenance, 11/02/19 9:02:00 EDT, Suspension, [facility]/pharmacy #[id number], 175, cm, 08/24/19 14:14:00 EDT, Height, 81.2, kg, 02/04/19 1:40:00 EDT, Dry Weight Start Date: 11/02/19 Status: Orderedfluticasone 50 mcg/inh nasal spray See Instructions, SPRAY 1 SPRAY INTO EACH NOSTRIL TWICE A DAY, # 16 Gm, 5 Refills, 07/09/20 11:38:00EST, [facility], 30, SPRAY 1 SPRAY INTO EACH NOSTRIL TWICE A DAY, 175, cm, 04/02/20 0:35:00 EDT, Height, 100, kg, 04/02/20 0:35:00 EDT, Dry We... Start Date: 07/09/20 Status: Orderedgabapentin 600 mg oral tablet 1 tablet, By Mouth, 4 times a day, # 120 tablet, 0 Refills, Maintenance, 09/05/20 17:32:00 EDT, [facility], 178, cm, 08/31/20 11:25:00 EDT, Height, 84.9, kg, 08/31/20 1:07:00 EDT, Dry Weight Start Date: 09/05/20 Status: OrderedhydrOXYzine hydrochloride 25 mg oral tablet 1 TO 2 TABLETS, By Mouth, 3 times a day, PRN NEEDED FOR ANXIETY (VIAL), # 60 tablet, 0 Refills, Acute, 09/05/20 17:32:00 EDT, [facility], 178, cm, 08/31/20 11:25:00 EDT, Height, 84.9, kg, 08/31/20 1:07:00 EDT, Dry Weight Start Date: 09/05/20 Status: Orderedlactulose 10 gm/15 ml oral syrup 30 mL = 20 Gm, By Mouth, 3 times a day, PRN Other, for 30 days, PRN to acheive 3-4 BMs per day fill in prefilled syringes, # 3,000 mL, 11 Refills, Acute 11/25/20 16:37:00 EDT, 12/01/19 16:37:00 EDT, Syrup, [facility], re sent from 10/04/17, 30... Start Date: 12/01/19 Stop Date: 11/25/20 Status: Orderedmelatonin 3 mg oral tablet 1 tablet = 3 mg, By Mouth, Daily at bedtime, PRN for insomnia, # 60 tablet, 4 Refills, Maintenance, 07/18/20 17:30:00 EST, Tablet, [facility], 175, cm, 04/02/20 0:35:00 EDT, Height, 100, kg, 04/02/20 0:35:00 EDT, Dry Weight Start Date: 07/18/20 Status: Orderedmupirocin 2% topical ointment See Instructions, APPLY TOPICALLY THREE TIMES DAILY (APPLY A THIN FILM), # 22 Gm, 0 Refills, Maintenance, 04/16/20 14:45:00 EST, [facility]/pharmacy #[id number], 8, APPLY TOPICALLY THREE TIMES DAILY (APPLY A THIN FILM), 175, cm, 04/02/20 0:35:00 EDT, Height, 100,... Start Date: 04/16/20 Status: Orderedpantoprazole 40 mg oral delayed release [...] EDT, Tablet, [facility], 175, cm, 08/24/19 14:14:00 EDT, Height, 81.2, kg, 02/04/19 1:40:00 EDT, Dry Weight Start Date: 10/06/19 Status: Orderedsertraline 50 mg oral tablet 1 tablet, By Mouth, Daily, TAKE ALONG WITH A 100MG TABLET to equal 150mg daily, # 90 tablet, 1 Refills, Maintenance, 10/06/19 15:57:00 EDT, [facility], 175, cm, 08/24/19 14:14:00 EDT, Height, 81.2, kg, 02/04/19 1:40:00 EDT, Dry Weight Start Date: 10/06/19 Status: Orderedsildenafil 50 mg oral tablet 1 tablet = 50 mg, By Mouth, Daily, PRN erectile dysfunction, 1 hour before sexual activity, # 6 tablet, 5 Refills, Maintenance, 03/11/20 14:37:00 EDT, Tablet, [facility]/pharmacy #[id number], 175, cm, 08/24/19 14:14:00 EDT, Height, 81.2, kg, 02/04/19 1:40:00 EDT,... Start Date: 03/11/20 Status: GlpklhsOzh-R-Fcyp oral tablet See Instructions, TAKE 1 TABLET BY MOUTH ONCE A DAY, # 30 tablet, 10 Refills, Maintenance, [facility], 28, TAKE 1 TABLET BY MOUTH ONCE A DAY, 175, cm, 04/02/20 0:35:00 EDT, Height, 100, kg, 04/02/20 0:35:00 EDT, Dry Weight Start Date: 07/18/20 Status: Orderedthermometer R50.9 thermometer R50.9, See Instructions, # 1 each, Refills 0, Tot. Refills 0, Maintenance, use as directed, 06/13/18 10:30:58 EST, Compound Start Date: 06/13/18 Status: OrderedtraMADol 50 mg oral tablet 1 tablet = 50 mg, By Mouth, Every 12 hours, PRN as needed for pain, 0 Refills, Maintenance, 08/30/2122:24:00 EDT, Tablet, Partial fill upon patient request if the prescription is for a schedule II opioid drug. Start Date: 08/30/20 Status: OrderedtraZODone 50 mg oral tablet See Instructions, TAKE 1 TO 2 TABLETS BY MOUTH AT BEDTIME (ONE DOSE IN VIAL), # 60 tablet, Refills 0, Maintenance, Instructions Replace Required Details, Route to Pharmacy Electronically, [facility], 178, cm, 08/31/20 11:25:00 EDT, Height, 84.... Start Date: 09/05/20 Status: OrderedVitamin B1 100 mg oral tablet 1, tablet, By Mouth, Daily, # 90 tablet, Refills 2, Tot. Refills 0, Acute, 09/05/20 17:32:00 EDT, Route to Pharmacy Electronically, [facility], 178, cm, 08/31/20 11:25:00 EDT, Height, 84.9, kg,08/31/20 1:07:00 EDT, Dry Weight Start Date: 09/05/20 Status: OrderedXifaxan 550 mg oral tablet 1 tablet, By Mouth, 2 times a day, # 60 tablet, 0 Refills, Maintenance, 04/16/20 14:45:00 EST, [facility]/pharmacy #[id number], 175, cm, 04/02/20 0:35:00 [...] Active Vitamin D insufficiency(Confirmed) 08/16/12 Active 1refer [id number] HEP C,b; immune HEP A,3r/o wyejbxdexjmmkyng2adcqzq3puxngmxc counseling6? [id number] RF ANCA,normal immunofixation,8lumbar puncture November 2011,neg lymenormal IGA neg SSA ,SSBnormal methylmalonic acid homocyseine9 legally blind;[id number] echo November 2014 Social History Social History Type Response Smoking Status 10 or more cigarettes (1/2 p ack or more)/day in last 30 days entered on: 02/04/19 Sex
--- OUTSIDE RECORDS SUMMARY | 2022-03-14 03:12 | XMS_ITS | Continuity of Care Document ---
:1975 Author Organization [facility] Address [address] [place] [address], [address] [place] [address]- Care Team Providers Name Role Phone Jany Baig DO Primary Care Physician Encounter [facility] Date(s): 10/29/20 - 11/28/[address], [address] [place] [address]- Allergies, Adverse Reactions, Alerts Substance Reaction Severity Status ibuprofen1 Hx of GI Bleed Active aspirin2 Hx GI Bleed Active Tylenol3 Cirrhosis Active NSAIDs Active 1pt advised not to take NSAIDs or Tylenol due to underlying liver disease. Also had GI side effects when took too much aspirin in the past.2pt took too much in the past and had GI side [id number] advised not to take d/t underlying liver [...] 08/02/12 Given 1Admin Note: #22Result Comment: [04/29/2017] [id number] Note: [email or web address] Admin Note: 3 RDINJ Medications baclofen 10 mg oral tablet 1, tablet, By Mouth, 3 times a day, # 90 tablet, Refills 0, Tot. Refills 0, Maintenance, 11/22/20 16:13:00 EDT, Route to Pharmacy Electronically, [facility], 178, cm, 11/12/20 15:32:00 EDT, Height, 84.9, kg, 08/31/20 1:07:00 EDT, Dry Weight Start Date: 11/22/20 Status: Orderedchantix 1mg tablet 1 tablet, By Mouth, 2 times a day, # 56 tablet, 0 Refills, Acute, 11/22/20 16:13:00 EDT, [facility], 178, cm, 11/12/20 15:32:00 EDT, Height, 84.9, kg, 08/31/20 1:07:00 EDT, Dry Weight Start Date: 11/22/20 Status: OrderedCo Q-10 100 mg oral capsule See Instructions, TAKE 1 CAPSULE BY MOUTH FOUR TIMES DAILY, # 120 capsule, 7 Refills, Maintenance, [facility], 178, cm, 10/22/20 13:17:00 EDT, Height, 84.9, kg, 08/31/20 1:07:00 EDT, Dry Weight Start Date: 11/01/20 Status: OrderedCo Q-10 100 mg oral capsule 1 capsule, By Mouth, 4 times a day, # 120 capsule, 11 Refills, Maintenance, 11/21/19 10:36:00 EDT, [facility]acy #[id number], 175, cm, 08/24/19 14:14:00 EDT, Height, 81.2, kg, 02/04/19 1:40:00 EDT, Dry Weight Start Date: 11/21/19 Stop Date: 11/15/20 Status: Orderedfluticasone 50 mcg/inh nasal spray See Instructions, SPRAY 1 SPRAY INTO EACH NOSTRIL TWICE A DAY, # 16 Gm, 5 Refills, 07/09/20 11:38:00EST, [facility], 30, SPRAY 1 SPRAY INTO EACH NOSTRIL TWICE A DAY, 175, cm, 04/02/20 0:35:00 EDT, Height, 100, kg, 04/02/20 0:35:00 EDT, Dry We... Start Date: 07/09/20 Status: Orderedgabapentin 600 mg oral tablet 1 tablet, By Mouth, 4 times a day, # 120 tablet, 0 Refills, Maintenance, 11/22/20 16:13:00 EDT, [facility], 178, cm, 11/12/20 15:32:00 EDT, Height, 84.9, kg, 08/31/20 1:07:00 EDT, Dry Weight Start Date: 11/22/20 Status: OrderedhydrOXYzine hydrochloride 25 mg oral tablet 1 TO 2 TABLETS, By Mouth, 3 times a day, PRN NEEDED FOR ANXIETY (VIAL), # 60 tablet, 3 Refills, Maintenance, 10/07/20 16:49:00 EDT, [facility], 178, cm, 08/31/20 11:25:00 EDT, Height, 84.9, kg, 08/31/20 1:07:00 EDT, Dry Weight Start Date: 10/07/20 Status: OrderedKeppra 500 mg oral tablet 1 tablet = 500 mg, By Mouth, 2 times a day, # 14 tablet, 0 Refills, Maintenance, 11/01/20 11:59:00 EDT, Tablet, [facility], Partial fill upon patient request if the prescription is for a schedule II opioid drug., 178, cm, 10/22/20 13:17:... Start Date: 11/01/20 Stop Date: 11/08/20 Status: Orderedmelatonin 3 mg oral tablet 1 tablet = 3 mg, By Mouth, Daily at bedtime, PRN for insomnia, # 60 tablet, 4 Refills, Maintenance, 07/18/20 17:30:00 EST, Tablet, [facility], 175, cm, 04/02/20 0:35:00 EDT, [...] 1 Refills, Maintenance, 10/06/19 15:57:00 EDT, Tablet, [facility], 175, cm, 08/24/19 14:14:00 EDT, Height, 81.2, kg, 02/04/19 1:40:00 EDT, Dry Weight Start Date: 10/06/19 Status: Orderedsertraline 50 mg oral tablet 1 tablet, By Mouth, Daily, TAKE ALONG WITH A 100MG TABLET to equal 150mg daily, # 90 tablet, 1 Refills, Maintenance, 10/06/19 15:57:00 EDT, [facility], 175, cm, 08/24/19 14:14:00 EDT, Height, 81.2, kg, 02/04/19 1:40:00 EDT, Dry Weight Start Date: 10/06/19 Status: Orderedsildenafil 50 mg oral tablet 1 tablet = 50 mg, By Mouth, Daily, PRN erectile dysfunction, 1 hour before sexual activity, # 6 tablet, 5 Refills, Maintenance, 03/11/20 14:37:00 EDT, Tablet, [facility]/pharmacy #[id number], 175, cm, 08/24/19 14:14:00 EDT, Height, 81.2, kg, 02/04/19 1:40:00 EDT,... Start Date: 03/11/20 Status: FqdgiruFzs-O-Kbio oral tablet See Instructions, TAKE 1 TABLET BY MOUTH ONCE A DAY, # 30 tablet, 10 Refills, Maintenance, [facility], 28, TAKE 1 TABLET BY MOUTH ONCE [...] 0 Refills, Maintenance, 10/22/20 17:52:00 EDT, Tablet, [facility]/pharmacy #[id number], Partial fill upon patient request [...] Replace Required Details, Route to Pharmacy Electronically, [facility], 178, cm, 10/22/20... Start Date: 11/01/20 Status: OrderedVitamin B1 100 mg oral tablet 1, tablet, By Mouth, Daily, # 90 tablet, Refills 2, Tot. Refills 0, Acute, 09/05/20 17:32:00 EDT, Route to Pharmacy Electronically, [facility], 178, cm, 08/31/20 11:25:00 EDT, Height, 84.9, kg,08/31/20 1:07:00 EDT, Dry Weight Start Date: 09/05/20 Status: OrderedXifaxan 550 mg oral tablet 1 tablet, By Mouth, 2 times a day, # 60 tablet, 0 Refills, Maintenance, 04/16/20 14:45:00 EST, [facility]/pharmacy #[id number], 175, cm, 04/02/20 0:35:00 EDT, [...] Active Vitamin D insufficiency(Confirmed) 08/16/12 Active 1refer [id number] HEP C,b; immune HEP A,3r/o rlinsbxcmcaqbhsa9fgnowb1jxbgatkz counseling6? [id number] RF ANCA,normal immunofixation,8lumbar puncture November 2011,neg lymenormal IGA neg SSA ,SSBnormal methylmalonic acid homocyseine9 legally blind;[id number] echo November 2014 Social History Social History Type Response Smoking Status 10 or more cigarettes (1/2 p ack or more)/day in last 30 days entered on: 02/04/19 Sex
--- OUTSIDE RECORDS SUMMARY | 2022-03-14 03:12 | XMS_ITS | Continuity of Care Document ---
:1975 Author Organization [facility] Address [address] [place] [address]- Care Team Providers Name Role Phone Jany Baig DO Primary Care Physician Encounter [facility] Date(s): 01/27/21 - 02/26/21 [facility] [address] [place] [address]- Allergies, Adverse Reactions, Alerts Substance Reaction Severity Status ibuprofen1 Hx of GI Bleed Active aspirin2 Hx GI Bleed Active Tylenol3 Cirrhosis Active NSAIDs Active 1pt advised not to take NSAIDs or Tylenol due to underlying liver disease. Also had GI side effects when took too much aspirin in the past.2pt took too much in the past and had GI side [id number] advised not to take d/t underlying liver [...] 08/02/12 Given 1Admin Note: #22Result Comment: [04/29/2017] [id number] Note: [email or web address] Admin Note: 3 RDINJ Medications baclofen 10 mg oral tablet 1, tablet, By Mouth, 3 times a day, # 90 tablet, Refills 0, Route to Pharmacy Electronically, [facility], 174, cm, 02/11/21 12:09:00 EDT, Height, 86.6, kg, 02/06/21 14:20:00 EDT, Dry Weight Start Date: 02/19/21 Status: Orderedchantix 1mg tablet 1 tablet, By Mouth, 2 times a day, # 56 tablet, 0 Refills, Acute, 11/22/20 16:13:00 EDT, [facility], 178, cm, 11/12/20 15:32:00 EDT, Height, 84.9, kg, 08/31/20 1:07:00 EDT, Dry Weight Start Date: 11/22/20 Status: OrderedCo Q-10 100 mg oral capsule See Instructions, TAKE 1 CAPSULE BY MOUTH FOUR TIMES DAILY, # 120 capsule, 7 Refills, Maintenance, [facility], 178, cm, 10/22/20 13:17:00 EDT, Height, 84.9, kg, 08/31/20 1:07:00 EDT, Dry Weight Start Date: 11/01/20 Status: OrderedCo Q-10 100 mg oral capsule 1 capsule, By Mouth, 4 times a day, # 120 capsule, 11 Refills, Maintenance, 11/21/19 10:36:00 EDT, [facility]/pharmacy #[id number], 175, cm, 08/24/19 14:14:00 EDT, Height, 81.2, kg, 02/04/19 1:40:00 EDT, Dry Weight Start Date: 11/21/19 Stop Date: 11/15/20 Status: Orderedfluticasone 50 mcg/inh nasal spray See Instructions, USE 1 SPRAY INTO EACH NOSTRIL TWICE A DAY, # 16 Gm, 5 Refills, Maintenance, [facility], 30, USE 1 SPRAY INTO EACH NOSTRIL TWICE A DAY, 178, cm, 01/07/21 17:59:00 EDT, Height, 81.4, kg, 12/03/20 13:52:00 EDT, Dry Weight Start Date: 01/17/21 Status: Orderedgabapentin 600 mg oral tablet 1 tablet, By Mouth, 4 times a day, # 120 tablet, 0 Refills, [facility], 174, cm, 02/11/21 12:09:00 EDT, Height, 86.6, kg, 02/06/21 14:20:00 EDT, Dry Weight Start Date: 02/19/21 Status: OrderedhydrOXYzine hydrochloride 25 mg oral tablet 1 TO 2 TABLETS, By Mouth, 3 times a day, PRN NEEDED FOR ANXIETY (VIAL), # 60 tablet, 2 Refills, [facility], 174, cm, 02/11/21 12:09:00 EDT, Height, 86.6, kg, 02/06/21 14:20:00 EDT, Dry Weight Start Date: 02/19/21 Status: OrderedKeppra 500 mg oral tablet 1 tablet = 500 mg, By Mouth, 2 times a day, # 14 tablet, 0 Refills, Maintenance, 11/01/20 11:59:00 EDT, Tablet, [facility], Partial fill upon patient request if the prescription is for a schedule II opioid drug., 178, cm, 10/22/20 13:17:... Start Date: 11/01/20 Stop Date: 11/08/20 Status: Orderedmelatonin 3 mg oral tablet 1 tablet = 3 mg, By Mouth, Daily at bedtime, PRN for insomnia, # 60 tablet, 4 Refills, Maintenance, 07/18/20 17:30:00 EST, Tablet, [facility], 175, cm, 04/02/20 0:35:00 EDT, Height, [...] Refills, Maintenance, 10/06/19 15:57:00 EDT, Tablet, [facility], 175, cm, 08/24/19 14:14:00 EDT, Height, 81.2, kg, 02/04/19 1:40:00 EDT, Dry Weight Start Date: 10/06/19 Status: Orderedsertraline 50 mg oral tablet 1 tablet, By Mouth, Daily, TAKE ALONG WITH A 100MG TABLET to equal 150mg daily, # 90 tablet, 1 Refills, Maintenance, 10/06/19 15:57:00 EDT, [facility], 175, cm, 08/24/19 14:14:00 EDT, Height, 81.2, kg, 02/04/19 1:40:00 EDT, Dry Weight Start Date: 10/06/19 Status: Orderedsildenafil 50 mg oral tablet 1 tablet = 50 mg, By Mouth, Daily, PRN erectile dysfunction, 1 hour before sexual activity, # 6 tablet, 5 Refills, Maintenance, 03/11/20 14:37:00 EDT, Tablet, [facility]/pharmacy #[id number], 175, cm, 08/24/19 14:14:00 EDT, Height, 81.2, kg, 02/04/19 1:40:00 EDT,... Start Date: 03/11/20 Status: FebtvynNou-R-Srtm oral tablet See Instructions, TAKE 1 TABLET [...] 0 Refills, Maintenance, 10/22/20 17:52:00 EDT, Tablet, [facility]/pharmacy #[id number], Partial fill upon patient request if the prescription is for a schedule II opioid drug., 178, cm, 10/22/20 13:17:00 EDT, Height... Start Date: 10/22/20 Status: OrderedtraZODone 50 mg oral tablet See Instructions, TAKE 1 TO 2 TABLETS BY MOUTH AT BEDTIME (ONE DOSE IN VIAL), # 60 tablet, Refills 5, Instructions Replace Required Details, Route to Pharmacy Electronically, [facility], 174, cm, 02/11/21 12:09:00 EDT, Height, 86.6, kg, ... Start Date: 02/15/21 Status: OrderedVitamin B1 100 mg oral tablet 1, tablet, By Mouth, Daily, # 90 tablet, Refills 2, Tot. Refills 0, Acute, 09/05/20 17:32:00 EDT, Route to Pharmacy Electronically, [facility], 178, cm, 08/31/20 11:25:00 EDT, Height, 84.9, kg,08/31/20 1:07:00 EDT, Dry Weight Start Date: 09/05/20 Status: OrderedXifaxan 550 mg oral tablet 1 tablet, By Mouth, 2 times a day, # 60 tablet, 0 Refills, Maintenance, 04/16/20 14:45:00 EST, [facility]/pharmacy #[id number], 175, cm, 04/02/20 0:35:00 EDT, Height, [...] Active Vitamin D insufficiency(Confirmed) 08/16/12 Active 1refer [id number] HEP C,b; immune HEP A,3r/o ilrhpefbvdswvjrb5jrupzx1cvuobgxt counseling6? vjtshxd2vik RF ANCA,normal immunofixation,8lumbar puncture November 2011,neg lymenormal IGA neg SSA ,SSBnormal methylmalonic acid homocyseine9 legally blind;hnbzipwjvo00xlncdl echo November 2014 Social History Social History Type Response Smoking Status 10 or more cigarettes (1/2 p ack or more)/day in last 30 days entered on: 02/04/19 Sex
--- OUTSIDE RECORDS SUMMARY | 2022-03-14 03:12 | XMS_ITS | Continuity of Care Document ---
:1975 Author Organization [facility] Address [address] [place] [address]- Care Team Providers Name Role Phone Jany Baig DO Primary Care Physician Encounter [facility] Date(s): 08/05/20 - 09/04/20 [facility] [address] [place] [address]- Allergies, Adverse Reactions, Alerts Substance Reaction Severity Status ibuprofen1 Hx of GI Bleed Active aspirin2 Hx GI Bleed Active Tylenol3 Cirrhosis Active NSAIDs Active 1pt advised not to take NSAIDs or Tylenol due to underlying liver disease. Also had GI side effects when took too much aspirin in the past.2pt took too much in the past and had GI side iexsksn1ub advised not to take d/t underlying liver [...] 08/02/12 Given 1Admin Note: #22Result Comment: [04/29/2017] [id number] Note: [email or web address] Admin Note: 3 RDINJ Medications baclofen 10 mg oral tablet 10 mg, 1, tablet, By Mouth, 3 times a day, pt needs to schedule appt, # 90 tablet, Refills 0, Tot. Refills 0, Maintenance, 08/29/20 13:57:00 EDT, Route to Pharmacy Electronically, [facility], 175, cm, 04/02/20 0:35:00 EDT, Height, 100, kg, 10/... Start Date: 08/29/20 Stop Date: 09/28/20 Status: Orderedchantix 1mg tablet 1 tablet, By Mouth, 2 times a day, for 12 week(s), neeeds to schedule appt, # 56 tablet, 0 Refills, Acute 09/18/20 11:11:00 EDT, 06/26/20 11:11:00 EST, [facility], 175, cm, 04/02/20 0:35:00 EDT, Height, 100, kg, 04/02/20 0:35:00 EDT, Dry Weight Start Date: 06/26/20 Stop Date: 09/18/20 Status: OrderedCo Q-10 100 mg oral capsule [...] # 16 Gm, 5 Refills, 07/09/20 11:38:00EST, [facility], 30, SPRAY 1 SPRAY INTO EACH NOSTRIL TWICE A DAY, 175, cm, 04/02/20 0:35:00 EDT, Height, 100, kg, 04/02/20 0:35:00 EDT, Dry We... Start Date: 07/09/20 Status: Orderedgabapentin 600 mg oral tablet 1 tablet, By Mouth, 4 times a day, # 120 tablet, 0 Refills, Maintenance, 08/07/20 12:03:00 EST, [facility], 175, cm, 04/02/20 0:35:00 EDT, Height, 100, kg, 04/02/20 0:35:00 EDT, Dry Weight Start Date: 08/07/20 Status: OrderedhydrOXYzine hydrochloride 25 mg oral tablet 1 TO 2 TABLETS, By Mouth, 3 times a day, PRN NEEDED FOR ANXIETY (VIAL), pt needs to schedule appt, # 60 tablet, 1 Refills, Maintenance, 07/18/20 17:31:00 EST, [facility], 175, cm, 04/02/20 0:35:00 EDT, Height, 100, kg, 04/02/20 0:35:00 EDT,... Start Date: 07/18/20 Status: Orderedlactulose 10 gm/15 ml oral syrup 30 mL = 20 Gm, By Mouth, 3 times a day, PRN Other, for 30 days, PRN to acheive 3-4 BMs per day fill in prefilled syringes, # 3,000 mL, 11 Refills, Acute 11/25/20 16:37:00 EDT, 12/01/19 16:37:00 EDT, Syrup, [facility], re sent from 10/04/17, 30... Start Date: 12/01/19 Stop Date: 11/25/20 Status: Orderedmelatonin 3 mg oral tablet 1 tablet = 3 mg, By Mouth, Daily at bedtime, PRN for insomnia, # 60 tablet, 4 Refills, Maintenance, 07/18/20 17:30:00 EST, Tablet, [facility], 175, cm, 04/02/20 0:35:00 EDT, Height, 100, kg, 04/02/20 0:35:00 EDT, Dry Weight Start Date: 07/18/20 Status: Orderedmupirocin 2% topical ointment See Instructions, APPLY TOPICALLY THREE TIMES DAILY (APPLY A THIN FILM), # 22 Gm, 0 Refills, Maintenance, 04/16/20 14:45:00 EST, [facility]/pharmacy #[id number], 8, APPLY TOPICALLY THREE TIMES DAILY [...] 1 Refills, Maintenance, 10/06/19 15:57:00 EDT, Tablet, [facility], 175, cm, 08/24/19 14:14:00 EDT, Height, 81.2, kg, 02/04/19 1:40:00 EDT, Dry Weight Start Date: 10/06/19 Status: Orderedsertraline 50 mg oral tablet 1 tablet, By Mouth, Daily, TAKE ALONG WITH A 100MG TABLET to equal 150mg daily, # 90 tablet, 1 Refills, Maintenance, 10/06/19 15:57:00 EDT, [facility], 175, cm, 08/24/19 14:14:00 EDT, Height, 81.2, kg, 02/04/19 1:40:00 EDT, Dry Weight Start Date: 10/06/19 Status: Orderedsildenafil 50 mg oral tablet 1 tablet = 50 mg, By Mouth, Daily, PRN erectile dysfunction, 1 hour before sexual activity, # 6 tablet, 5 Refills, Maintenance, 03/11/20 14:37:00 EDT, Tablet, [facility]/pharmacy #[id number], 175, cm, 08/24/19 14:14:00 EDT, Height, 81.2, kg, 02/04/19 1:40:00 EDT,... Start Date: 03/11/20 Status: DhdwumrKpb-L-Kank oral tablet See Instructions, TAKE 1 TABLET BY MOUTH ONCE A DAY, # 30 tablet, 10 Refills, [facility], TAKE 1 TABLET BY MOUTH ONCE [...] Replace Required Details, Route to Pharmacy Electronically, [facility], 175, cm, 04/02/20 0:35:00 EDT, Height, 100,... Start Date: 08/07/20 Status: OrderedVitamin B1 100 mg oral tablet 1, tablet, By Mouth, Daily, # 90 tablet, Refills 3, Tot. Refills 3, Maintenance, 09/27/19 8:51:00 EDT, Route to Pharmacy Electronically, [facility], 175, cm, 08/24/19 14:14:00 EDT, Height, 81.2, kg, 02/04/19 1:40:00 EDT, Dry Weight Start Date: 09/27/19 Status: OrderedXifaxan 550 mg oral tablet 1 tablet, By Mouth, 2 times a day, # 60 tablet, 0 Refills, Maintenance, 04/16/20 14:45:00 EST, [facility]/pharmacy #[id number], 175, cm, 04/02/20 0:35:00 EDT, Height, [...] Active Vitamin D insufficiency(Confirmed) 08/16/12 Active 1refer [id number] HEP C,b; immune HEP A,3r/o fgmszudskhjtfhpk5sikkia7ufdlwmaq counseling6? yfhjxtc7hcl RF ANCA,normal immunofixation,8lumbar puncture November 2011,neg lymenormal IGA neg SSA ,SSBnormal methylmalonic acid homocyseine9 legally blind;[id number] echo November 2014 Social History Social History Type Response Smoking Status 10 or more cigarettes (1/2 p ack or more)/day in last 30 days entered on: 02/04/19 Sex
--- OUTSIDE RECORDS SUMMARY | 2022-03-14 03:12 | XMS_ITS | Continuity of Care Document ---
:1975 Author Organization [facility] Address [address] [place] [address]- Care Team Providers Name Role Phone Jany Baig DO Primary Care Physician Encounter [facility] Date(s): 02/16/20 - 03/17/20 [facility] [address] [place] [address]- [facility] Allergies, Adverse Reactions, Alerts Substance Reaction Severity Status ibuprofen1 Hx of GI Bleed Active aspirin2 Hx GI Bleed Active Tylenol3 Cirrhosis Active NSAIDs Active 1pt advised not to take NSAIDs or Tylenol due to underlying liver disease. Also had GI side effects when took too much aspirin in the past.2pt took too much in the past and had GI side [id number] advised not to take d/t underlying liver [...] 08/02/12 Given 1Admin Note: #22Result Comment: [04/29/2017] [id number] Note: [email or web address] Admin Note: 3 RDINJ Medications baclofen 10 mg oral tablet 10 mg, 1, tablet, By Mouth, 3 times a day, # 90 tablet, Refills 4, Tot. Refills 4, Maintenance, 02/16/20 17:55:00 EDT, Route to Pharmacy Electronically, [facility], 175, cm, 08/24/19 14:14:00 EDT, Height, 81.2, kg, 02/04/19 1:40:00 EDT, Dry We... Start Date: 02/16/20 Stop Date: 07/15/20 Status: Orderedchantix 1mg tablet See Instructions, TAKE 1 TABLET BY MOUTH TWICE A DAY WITH A FULL GLASS OF WATER AND CONTINUE FOR A TOTAL OF 12 WEEKS, # 56 tablet, 0 Refills, Maintenance, 02/16/20 17:54:00 EDT, [facility], 175, cm, 08/24/19 14:14:00 EDT, Height, [...] 16 Gm, 5 Refills, 01/26/20 9:52:00 EDT, [facility], 30, SPRAY 1 SPRAY INTO EACH NOSTRIL TWICE A DAY, 175, cm, 08/24/19 14:14:00 EDT, Height, 81.2, kg, 02/04/19 1:40:00 EDT, Dry W... Start Date: 01/26/20 Status: Orderedgabapentin 600 mg oral tablet 1 tablet = 600 mg, By Mouth, 4 times a day, to replace prior script, # 120 tablet, 3 Refills, Maintenance, 01/26/20 14:28:00 EDT, Tablet, [facility], [...] 11/25/20 16:37:00 EDT, 12/01/19 16:37:00 EDT, Syrup, [facility], re sent from 10/04/17, 30... Start [...] 4 Refills, Maintenance, 10/06/19 16:16:00 EDT, Tablet, [facility], 175, cm, 08/24/19 14:14:00 EDT, Height, 81.2, kg, 02/04/19 1:40:00 EDT, Dry Weight Start Date: 10/06/19 Status: Orderedmupirocin 2% topical ointment See Instructions, APPLY TOPICALLY THREE TIMES DAILY (APPLY A THIN FILM), # 22 Gm, 0 Refills, Maintenance, 02/16/20 17:55:00 EDT, [facility], 8, APPLY TOPICALLY THREE TIMES DAILY (APPLY A THIN FILM), 175, cm, 08/24/19 14:14:00 EDT, Height, 81.2... Start Date: 02/16/20 Status: Orderedmupirocin 2% topical ointment See Instructions, APPLY TOPICALLY THREE TIMES DAILY (APPLY A THIN FILM), # 22 Gm, 0 Refills, Maintenance, 01/26/20 14:28:00 EDT, [facility], 8, APPLY TOPICALLY THREE TIMES DAILY [...] 02/04/19 1:40:00 EDT,... Start Date: 03/11/20 Status: HvoxmazOte-G-Lpzv oral tablet 1 tablet, By Mouth, Daily, # 30 tablet, 11 Refills, Maintenance, 06/16/19 12:42:00 EST, [facility], 30, TAKE 1 TABLET BY MOUTH [...] 09/27/19 8:51:00 EDT, Route to Pharmacy Electronically, [facility], 175, cm, 08/24/19 14:14:00 EDT, Height, 81.2, kg, 02/04/19 1:40:00 EDT, Dry Weight Start Date: 09/27/19 Status: OrderedXifaxan 550 mg oral tablet 1 tablet, By Mouth, 2 times a day, # 60 tablet, 0 Refills, Maintenance, 10/30/19 16:57:00 EDT, [facility], 175, cm, 08/24/19 14:14:00 EDT, Height, 81.2, kg, 02/04/19 1:40:00 EDT, Dry Weight Start Date: 10/30/19 Status: OrderedXifaxan 550 mg oral tablet See Instructions, TAKE 1 TABLET BY MOUTH TWICE A DAY, # 60 tablet, 0 Refills, 02/16/20 17:54:00 EDT,[facility], 175, cm, 08/24/19 14:14:00 EDT, Height, 81.2, kg, 02/04/19 1:40:00 EDT, Dry Weight Start Date: 02/16/20 Status: Ordered Problem List Condition Effective Dates [...] Active Vitamin D insufficiency(Confirmed) 08/16/12 Active 1refer [id number] HEP C,b; immune HEP A,3r/o txgsdqxcohibrqhe2skguej5fcmxsqlk counseling6? jnwuxcd2ocj RF ANCA,normal immunofixation,8lumbar puncture November 2011,neg lymenormal IGA neg SSA ,SSBnormal methylmalonic acid homocyseine9 legally blind;emltrcnsef85zmzqqw echo November 2014 Social History Social History Type Response Smoking Status 10 or more cigarettes (1/2 p ack or more)/day in last 30 days entered on: 02/04/19 Sex
--- OUTSIDE RECORDS SUMMARY | 2022-03-14 03:13 | XMS_ITS | Continuity of Care Document ---
:1975 Author Organization [facility] Address [address] [place] [address]- Care Team Providers Name Role Phone Jany Baig DO Primary Care Physician Encounter [facility] Date(s): 03/24/21 - 04/23/21 [facility] [address] [place] [address]- Allergies, Adverse Reactions, Alerts Substance Reaction Severity Status ibuprofen1 Hx of GI Bleed Active aspirin2 Hx GI Bleed Active Tylenol3 Cirrhosis Active NSAIDs Active 1pt advised not to take NSAIDs or Tylenol due to underlying liver disease. Also had GI side effects when took too much aspirin in the past.2pt took too much in the past and had GI side [id number] advised not to take d/t underlying liver [...] acel (oldterm) 08/02/12 Given 1Result Comment: [04/29/2017] [id number] Note: [id number] Note: 3 [id number] Note: #2 Medications baclofen 10 mg oral tablet 1, tablet, By Mouth, 3 times a day, # 90 tablet, Refills 0, Route to Pharmacy Electronically, [facility], 174, cm, 02/27/21 15:17:00 EDT, Height, 81, kg, 02/27/21 14:06:00 EDT, Dry Weight Start Date: 04/16/21 Status: Orderedchantix 1mg tablet 1 tablet, By Mouth, 2 times a day, # 56 tablet, 0 Refills, Acute, 11/22/20 16:13:00 EDT, [facility], 178, cm, 11/12/20 15:32:00 EDT, Height, 84.9, kg, 08/31/20 1:07:00 EDT, Dry Weight Start Date: 11/22/20 Status: OrderedCo Q-10 100 mg oral capsule See Instructions, TAKE 1 CAPSULE BY MOUTH FOUR TIMES DAILY, # 120 capsule, 7 Refills, Maintenance, [facility], 178, cm, 10/22/20 13:17:00 EDT, Height, 84.9, kg, 08/31/20 1:07:00 EDT, Dry Weight Start Date: 11/01/20 Status: OrderedCo Q-10 100 mg oral capsule 1 capsule, By Mouth, 4 times a day, # 120 capsule, 11 Refills, Maintenance, 11/21/19 10:36:00 EDT, [facility]/pharmacy #[id number], 175, cm, 08/24/19 14:14:00 EDT, Height, 81.2, kg, 02/04/19 1:40:00 EDT, Dry Weight Start Date: 11/21/19 Stop Date: 11/15/20 Status: Orderedfluticasone 50 mcg/inh nasal spray See Instructions, USE 1 SPRAY INTO EACH NOSTRIL TWICE A DAY, # 16 Gm, 5 Refills, Maintenance, [facility], 30, USE 1 SPRAY INTO EACH NOSTRIL TWICE A DAY, 178, cm, 01/07/21 17:59:00 EDT, Height, 81.4, kg, 12/03/20 13:52:00 EDT, Dry Weight Start Date: 01/17/21 Status: Orderedgabapentin 600 mg oral tablet 1 tablet, By Mouth, 4 times a day, # 120 tablet, 0 Refills, [facility], 174, cm, 02/27/21 15:17:00 EDT, Height, 81, kg, 02/27/21 14:06:00 EDT, Dry Weight Start Date: 04/16/21 Status: OrderedhydrOXYzine hydrochloride 25 mg oral tablet 1 TO 2 TABLETS, By Mouth, 3 times a day, PRN NEEDED FOR ANXIETY (VIAL), # 60 tablet, 2 Refills, [facility], 174, cm, 02/11/21 12:09:00 EDT, Height, 86.6, kg, 02/06/21 14:20:00 EDT, Dry Weight Start Date: 02/19/21 Status: Orderedmelatonin 3 mg oral tablet 1 tablet = 3 mg, By Mouth, Daily at bedtime, PRN for insomnia, # 60 tablet, 4 Refills, Maintenance, 07/18/20 17:30:00 EST, Tablet, [facility], 175, cm, 04/02/20 0:35:00 [...] 1 Refills, Maintenance, 10/06/19 15:57:00 EDT, Tablet, [facility], 175, cm, 08/24/19 14:14:00 EDT, Height, 81.2, kg, 02/04/19 1:40:00 EDT, Dry Weight Start Date: 10/06/19 Status: Orderedsertraline 50 mg oral tablet 1 tablet, By Mouth, Daily, TAKE ALONG WITH A 100MG TABLET to equal 150mg daily, # 90 tablet, 1 Refills, Maintenance, 10/06/19 15:57:00 EDT, [facility], 175, cm, 08/24/19 14:14:00 EDT, Height, 81.2, kg, 02/04/19 1:40:00 EDT, Dry Weight Start Date: 10/06/19 Status: Orderedsildenafil 50 mg oral tablet 1 tablet = 50 mg, By Mouth, Daily, PRN erectile dysfunction, 1 hour before sexual activity, # 6 tablet, 5 Refills, Maintenance, 03/11/20 14:37:00 EDT, Tablet, [facility]/pharmacy #[id number], 175, cm, 08/24/19 14:14:00 EDT, Height, 81.2, kg, 02/04/19 1:40:00 EDT,... Start Date: 03/11/20 Status: UtcwoksNan-X-Ndlc oral tablet See Instructions, TAKE 1 TABLET [...] 0 Refills, Maintenance, 10/22/20 17:52:00 EDT, Tablet, [facility]/pharmacy #[id number], Partial fill upon patient request if the prescription is for a schedule II opioid drug., 178, cm, 10/22/20 13:17:00 EDT, Height... Start Date: 10/22/20 Status: OrderedtraZODone 50 mg oral tablet See Instructions, TAKE 1 TO 2 TABLETS BY MOUTH AT BEDTIME (ONE DOSE IN VIAL), # 60 tablet, Refills 5, Instructions Replace Required Details, Route to Pharmacy Electronically, [facility], 174, cm, 02/11/21 12:09:00 EDT, Height, 86.6, kg, ... Start Date: 02/15/21 Status: OrderedVitamin B1 100 mg oral tablet 1, tablet, By Mouth, Daily, # 90 tablet, Refills 2, Tot. Refills 0, Acute, 09/05/20 17:32:00 EDT, [facility], 178, cm, 08/31/20 11:25:00 EDT, Height, 84.9, kg,08/31/20 1:07:00 EDT, Dry Weight Start Date: 09/05/20 Status: OrderedXifaxan 550 mg oral tablet 1 tablet, By Mouth, 2 times a day, # 60 tablet, 0 Refills, Maintenance, 04/16/20 14:45:00 EST, [facility]/pharmacy #[id number], 175, cm, 04/02/20 0:35:00 EDT, [...] Active Vitamin D insufficiency(Confirmed) 08/16/12 Active 1refer [id number] HEP C,b; immune HEP A,3r/o pktcryesezaqiseq5mnxpvb5fscmynwp counseling6? nstqool8cdn RF ANCA,normal immunofixation,8lumbar puncture November 2011,neg lymenormal IGA neg SSA ,SSBnormal methylmalonic acid homocyseine9 legally blind;ijagnutpbc75xsdmui echo November 2014 Social History Social History Type Response Smoking Status 10 or more cigarettes (1/2 p ack or more)/day in last 30 days entered on: 02/04/19 Sex
--- OUTSIDE RECORDS SUMMARY | 2022-03-14 03:13 | XMS_ITS | Continuity of Care Document ---
:1975 Author Organization [facility] Address [address] [place] [address]- Care Team Providers Name Role Phone Jany Baig DO Primary Care Physician [place] [facility] [place] [facility] [address] [place] [address]- Encounter Diagnosis Alcohol abuse (Discharge Diagnosis) - 07/04/21 Alcoholic hepatitis, cirrhosis (Discharge Diagnosis) - 07/04/21 Attending Physician: Anna WILSON, Christine Allergies, Adverse [...] in the past and had GI side [id number] advised not to take d/t underlying liver [...] acel (oldterm) 08/02/12 Given 1Result Comment: [04/29/2017] [id number] Note: [id number] Note: 3 [id number] Note: #2 Medications baclofen 10 mg oral tablet 1, tablet, By Mouth, 3 times a day, # 90 tablet, Refills 0, Route to Pharmacy Electronically, [facility], 174, cm, 02/27/21 15:17:00 EDT, Height, 81, kg, 02/27/21 14:06:00 EDT, Dry Weight Start Date: 07/08/21 Status: Orderedchantix 1mg tablet 1 tablet, By Mouth, 2 times a day, # 56 tablet, 0 Refills, Acute, 11/22/20 16:13:00 EDT, [facility], 178, cm, 11/12/20 15:32:00 EDT, Height, 84.9, kg, 08/31/20 1:07:00 EDT, Dry Weight Start Date: 11/22/20 Status: OrderedCo Q-10 100 mg oral capsule 1 capsule, By Mouth, 4 times a day, # 120 capsule, 6 Refills, [facility], 174, cm, 02/27/21 15:17:00 EDT, Height, 81, kg, 02/27/21 14:06:00 EDT, Dry Weight Start Date: 07/08/21 Status: Orderedfluticasone 50 mcg/inh nasal spray See Instructions, USE 1 SPRAY INTO EACH NOSTRIL TWICE A DAY, # 16 Gm, 5 Refills, Maintenance, [facility], 30, USE 1 SPRAY INTO EACH NOSTRIL TWICE A DAY, 178, cm, 01/07/21 17:59:00 EDT, Height, 81.4, kg, 12/03/20 13:52:00 EDT, Dry Weight Start Date: 01/17/21 Status: Orderedgabapentin 600 mg oral tablet 1 tablet, By Mouth, 4 times a day, # 120 tablet, 0 Refills, [facility], 174, cm, 02/27/21 15:17:00 EDT, Height, 81, kg, 02/27/21 14:06:00 EDT, Dry Weight Start Date: 07/08/21 Status: OrderedhydrOXYzine hydrochloride 25 mg oral tablet 1 TO 2 TABLETS, By Mouth, 3 times a day, PRN NEEDED FOR ANXIETY (VIAL), # 60 tablet, 0 Refills, [facility], 174, cm, 02/27/21 15:17:00 EDT, Height, 81, kg, 02/27/21 14:06:00 EDT, Dry Weight Start Date: 07/08/21 Status: Orderedlactulose 10 gm/15 ml oral syrup See Instructions, TAKE 30ML BY MOUTH THREE TIMES DAILY NEEDED TO ACHEIVE 3-4 BOWL MOVEMENTS PER DAY, # 3,000 mL, 10 Refills, [facility], 30, TAKE 30ML BY MOUTH THREE TIMES DAILY NEEDED TOACHEIVE 3-4 BOWL MOVEMENTS PER DAY, 174, cm, 02/12... Start Date: 07/02/21 Status: OrderedMelatonin 3 mg oral tablet 1 tablet, By Mouth, Daily at bedtime, PRN NEEDED FOR INSOMNIA (PACKAGE IN TRAY), # 60 tablet, 5 Refills, Maintenance, 06/02/21 16:17:00 EST, [facility], 28, 1 tablet By Mouth [...] Maintenance, 10/06/19 15:57:00 EDT, Tablet, [facility], 175, cm, 08/24/19 14:14:00 EDT, Height, 81.2, kg, 02/04/19 1:40:00 EDT, Dry Weight Start Date: 10/06/19 Status: Orderedsertraline 50 mg oral tablet 1 tablet, By Mouth, Daily, TAKE ALONG WITH A 100MG TABLET to equal 150mg daily, # 90 tablet, 1 Refills, Maintenance, 10/06/19 15:57:00 EDT, [facility], 175, cm, 08/24/19 14:14:00 EDT, Height, 81.2, kg, 02/04/19 1:40:00 EDT, Dry Weight Start Date: 10/06/19 Status: Orderedsildenafil 50 mg oral tablet 1 tablet = 50 mg, By Mouth, Daily, PRN erectile dysfunction, 1 hour before sexual activity, # 6 tablet, 5 Refills, Maintenance, 03/11/20 14:37:00 EDT, Tablet, [facility]acy #[id number], 175, cm, 08/24/19 14:14:00 EDT, Height, 81.2, kg, 02/04/19 1:40:00 EDT,... Start Date: 03/11/20 Status: GleamzgTyq-N-Nvsg oral tablet See Instructions, TAKE 1 TABLET BY MOUTH ONCE A DAY, # 30 tablet, 10 Refills, Maintenance, [facility], 28, TAKE 1 TABLET BY MOUTH ONCE A DAY, 175, cm, 04/02/20 0:35:00 EDT, Height, 100, kg, 04/02/20 0:35:00 EDT, Dry Weight Start Date: 07/18/20 Status: Orderedtranexamic acid 650 mg oral tablet 1 tablet = 650 mg, By Mouth, Daily, # 21 tablet, 0 Refills, Maintenance, 10/22/20 17:52:00 EDT, Tablet, [facility]/pharmacy #[id number], Partial fill upon patient request if the prescription is for a schedule II opioid drug., 178, cm, 10/22/20 13:17:00 EDT, Height... Start Date: 10/22/20 Status: OrderedtraZODone 50 mg oral tablet See Instructions, TAKE 1 TO 2 TABLETS BY MOUTH AT BEDTIME (ONE DOSE IN VIAL), # 60 tablet, Refills 0, Instructions Replace Required Details, Route to Pharmacy Electronically, [facility], 174, cm, 02/27/21 15:17:00 EDT, Height, 81, kg, 02/27/21... Start Date: 07/10/21 Status: OrderedtraZODone 50 mg oral tablet See Instructions, TAKE 1 TO 2 TABLETS BY MOUTH AT BEDTIME (ONE DOSE IN VIAL), # 60 tablet, Refills 5, Instructions Replace Required Details, Route to Pharmacy Electronically, [facility], 174, cm, 02/11/21 12:09:00 EDT, Height, 86.6, kg, ... Start Date: 02/15/21 Status: OrderedVitamin B1 100 mg oral tablet 1, tablet, By Mouth, Daily, # 90 tablet, Refills 1, Route to Pharmacy Electronically, [facility], 174, cm, 02/27/21 15:17:00 EDT, Height, 81, kg, 02/27/21 14:06:00 EDT, Dry Weight Start Date: 06/16/21 Status: OrderedXifaxan 550 mg oral tablet 1 tablet, By Mouth, 2 times a day, # 60 tablet, 0 Refills, Maintenance, 04/16/20 14:45:00 EST, [facility]/pharmacy #[id number], 175, cm, 04/02/20 0:35:00 [...] Active Vitamin D insufficiency(Confirmed) 08/16/12 Active 1refer uuzou8uor HEP C,b; immune HEP A,3r/o cgffowjknbwtavhg6tqnzob8palntmzj counseling6? [id number] RF ANCA,normal immunofixation,8lumbar puncture November 2011,neg lymenormal IGA neg SSA ,SSBnormal methylmalonic acid homocyseine9 legally blind;[id number] echo November 2014 Diagnosis Diagnosis Type Effective Dates Health Status Clinical In formant Service Alcohol abuse Discharge 07/04/21 Diagnosis Alcoholic Discharge 07/04/21 hepatitis, Diagnosis cirrhosis Social History Social History Type Response Smoking Status 10 or more cigarettes (1/2 p ack or more)/day in last 30 days entered on: 02/04/19 Sex Male
--- OUTSIDE RECORDS SUMMARY | 2022-03-14 03:13 | XMS_ITS | Continuity of Care Document ---
:1975 Author Organization [facility] Address [address] [place] [address]- Care Team Providers Name Role Phone Jany Baig DO Primary Care Physician [place] [facility] [place] 12/29/21 - 01/28/22 [facility] [address] [place] [address]- Allergies, Adverse Reactions, Alerts Substance Reaction Severity Status ibuprofen1 Hx of GI Bleed Active aspirin2 Hx GI Bleed Active Tylenol3 Cirrhosis Active NSAIDs Active 1pt advised not to take NSAIDs or Tylenol due to underlying liver disease. Also had GI side effects when took too much aspirin in the past.2pt took too much in the past and had GI side jfnpxav1to advised not to take d/t underlying liver [...] acel (oldterm) 08/02/12 Given 1Result Comment: [04/29/2017] [id number] Note: [id number] Note: 3 [id number] Note: #2 Medications acetaminophen 500 mg oral tablet 1 tablet, By Mouth, 4 times a day, PRN NEEDED FOR PAIN, MAX 4, PER DAY (VIAL., # 50 tablet, 0 Refills, [facility], 175, cm, 01/06/22 10:34:00 EDT, Height, 78.3, kg, 12/26/21 19:05:00 EDT, Dry Weight Start Date: 01/28/22 Status: OrderedamLODIPine 5 mg oral tablet 5 mg, 1, tablet, By Mouth, Daily, # 30 tablet, Refills 5, Tot. Refills 5, Maintenance, 10/21/21 10:15:00 EDT, [facility], Partial fill upon patient request if the prescription is for a schedule II opioid drug.... Start Date: 10/21/21 Status: OrderedCo Q-10 100 mg oral capsule 1 capsule, By Mouth, 4 times a day, # 120 capsule, 6 Refills, [facility], 174, cm, 02/27/21 15:17:00 EDT, [...] A DAY, # 16 Gm, 5 Refills, [facility],30, USE 1 SPRAY INTO EACH NOSTRIL TWICE A DAY, 174, cm, 07/14/21 8:16:00 EST, Height, 81, kg, 02/27/21 14:06:00 EDT, Dry Weight Start Date: 08/04/21 Status: Orderedfolic acid 1 mg oral tablet 1 mg, 1, tablet, By Mouth, Daily, # 90 tablet, Refills 4, Tot. Refills 4, Maintenance, 10/27/21 10:40:00 EDT, Route to Pharmacy Electronically, [facility], Partial fill upon patient request if the prescription is for a schedule II opioid drug.... Start Date: 10/27/21 Stop Date: 01/20/23 Status: Orderedfurosemide 20 mg oral tablet 1, tablet, By Mouth, Daily, # 30 tablet, Refills 0, Route to Pharmacy Electronically, [facility], 175, cm, 01/06/22 10:34:00 EDT, Height, 78.3, kg, 12/26/21 19:05:00 EDT, Dry Weight Start Date: 01/21/22 Status: OrderedhydrOXYzine hydrochloride 25 mg oral tablet 1 TO 2 TABLETS, By Mouth, 3 times a day, PRN NEEDED FOR ANXIETY (VIAL), # 60 tablet, 0 Refills, [facility], 175, cm, 01/06/22 10:34:00 EDT, Height, 78.3, kg, 12/26/21 19:05:00 EDT, Dry Weight Start Date: 01/28/22 Status: Orderedlactulose 10 gm/15 ml oral syrup See Instructions, TAKE 30ML BY MOUTH THREE TIMES DAILY NEEDED TO ACHEIVE 3-4 BOWL MOVEMENTS PER DAY, # 3,000 mL, 10 Refills, [facility], 30, TAKE 30ML BY MOUTH THREE TIMES DAILY NEEDED TOACHEIVE 3-4 BOWL MOVEMENTS PER DAY, 174, cm, 02/12... Start Date: 07/02/21 Status: Orderedlidocaine 0.5% topical gel 1 application, Topically, 3 times a day, # 120 Gm, 0 Refills, Acute 12/30/22 17:23:00 EDT, 12/30/21 17:23:00 EDT, Gel, [facility], Partial fill upon patient request if the prescription is for aschedule II opioid drug., 1 application Topically... Start Date: 12/30/21 Stop Date: 12/30/22 Status: OrderedLidoderm 5% film 1 patch, Topically, Daily, remove patches after 12 hours NSAIDS contraindicated High dose tylenol contraindicated, # 30 patch, 5 Refills, Maintenance, 12/26/21 9:33:00 EDT, [facility], Partial fill upon patient request if the prescription i... Start Date: 12/26/21 Status: Orderedmagnesium oxide 400 mg oral tablet 1 tablet, By Mouth, 2 times a day, # 60 tablet, 0 Refills, [facility], 175, cm, 01/06/22 10:34:00 EDT, Height, 78.3, kg, 12/26/21 19:05:00 EDT, Dry Weight Start Date: 01/21/22 Status: OrderedMelatonin 3 mg oral tablet 1 tablet, By Mouth, Daily at bedtime, PRN NEEDED FOR INSOMNIA (PACKAGE IN TRAY), # 60 tablet, 5 Refills, Maintenance, 06/02/21 16:17:00 EST, [facility], 28, 1 tablet By Mouth [...] Refills, Maintenance, 01/28/22 10:17:00 EDT, ER Tablet, [facility], Partial fill upon patient request if the prescription is for a schedule IIopioid drug., 175, cm, 01/06/22 10:34:00 EDT, Hei... Start Date: 01/28/22 Stop Date: 03/29/22 Status: Orderedpyridoxine 50 mg oral tablet 50 mg, 1, tablet, By Mouth, Daily, for 90 days, # 90 tablet, Refills 4, Tot. Refills 4, Acute 01/15/23 11:42:00 EDT, 10/22/21 11:42:00 EDT, Route to Pharmacy Electronically, [facility], Partialfill upon patient request if the prescription is... Start Date: 10/22/21 Stop Date: 01/15/23 Status: OrderedR aircast ankle-stirrup support brace R aircast ankle-stirrup support brace, See Instructions, # 1 each, Refills 0, Tot. Refills 0, Maintenance, Dx: R inversion ankle sprain s93.409a, 01/06/22 12:31:00 EDT, Supply Start Date: 01/06/22 Status: SctkbmyMut-A-Yifu oral tablet 1 tablet, By Mouth, Daily, # 90 tablet, 9 Refills, [facility], 28, TAKE 1 TABLET BY [...] Replace Required Details, Route to Pharmacy Electronically, [facility], 170, cm,... Start Date: 12/26/21 Status: OrderedVitamin B1 100 mg oral tablet 1, tablet, By Mouth, Daily, # 90 tablet, Refills 0, Route to Pharmacy Electronically, [facility], 170, cm, 11/12/21 10:02:00 EDT, Height, 78, kg, 11/04/21 12:03:00 EDT, Dry Weight Start Date: 12/24/21 Status: OrderedXifaxan 550 mg oral tablet 1 tablet, By Mouth, 2 times a day, # 60 tablet, 2 Refills, [facility], 175, cm, 01/06/22 10:34:00 EDT, Height, [...] Active Vitamin D insufficiency(Confirmed) 08/16/12 Active 1refer [id number] HEP C,b; immune HEP A,3r/o knqimcfmiobrngsp8dxijpj8njsmbfsf counseling6? bqkjxlr9ihg RF ANCA,normal immunofixation,8lumbar puncture November 2011,neg lymenormal IGA neg SSA ,SSBnormal methylmalonic acid homocyseine9 legally blind;[id number] echo November 2014 Social History Social History Type Response Smoking Status 10 or more cigarettes (1/2 p ack or more)/day in last 30 days entered on: 02/04/19 Sex
--- OUTSIDE RECORDS SUMMARY | 2022-03-14 03:13 | XMS_ITS | Continuity of Care Document ---
:1975 Author Organization [facility] Address [address] [place] [address]- Care Team Providers Name Role Phone Jany Baig DO Primary Care Physician Encounter [facility] Date(s): 02/10/21 - 02/10/[address] [address]- Discharge Disposition: A-D/C Walkout Attending Physician: Not on Staff, Attending MD Admitting Physician: Not on Staff, Admitting MD Referring Physician: Not on Staff, Referring [...] in the past and had GI side vpjrgjw2df advised not to take d/t underlying liver [...] vaccine, inactivated3 02/28/13 Given pneumococcal 23-valent vaccine 10/3/15 Given hepatitis B adult vaccine4 02/28/13 Given Pneumococcal Vaccine (oldterm) 08/02/12 Given Tet/diphth/pertussis, acel (oldterm) 08/02/12 Given 1Admin Note: #22Result Comment: [04/29/2017] [id number] Note: [id number] Admin Note: 3 RDINJ Medications baclofen 10 mg oral tablet 1, tablet, By Mouth, 3 times a day, # 90 tablet, Refills 0, Tot. Refills 0, Maintenance, 01/20/21 15:04:00 EDT, Route to Pharmacy Electronically, [facility], 178, cm, 01/07/21 17:59:00 EDT, Height, 81.4, kg, 12/03/20 13:52:00 EDT, Dry Weight Start Date: 01/20/21 Status: OrderedBactrim DS 800 mg-160 mg oral tablet 1 tablet, By Mouth, 2 times a day, for 10 days, # 20 tablet, 0 Refills, Acute 02/16/21 18:00:00 EDT,02/06/21 18:00:00 EDT, Tablet, [facility]acy #[id number], Partial fill upon patient request if the prescription is for a schedule II opioid drug., 1 tablet B... Start Date: 02/06/21 Stop Date: 02/16/21 Status: Orderedchantix 1mg tablet 1 tablet, By Mouth, 2 times a day, # 56 tablet, 0 Refills, Acute, 11/22/20 16:13:00 EDT, [facility], 178, cm, 11/12/20 15:32:00 EDT, Height, 84.9, kg, 08/31/20 1:07:00 EDT, Dry Weight Start Date: 11/22/20 Status: OrderedCo Q-10 100 mg oral capsule See Instructions, TAKE 1 CAPSULE BY MOUTH FOUR TIMES DAILY, # 120 capsule, 7 Refills, Maintenance, [facility], 178, cm, 10/22/20 13:17:00 EDT, Height, 84.9, kg, 08/31/20 1:07:00 EDT, Dry Weight Start Date: 11/01/20 Status: OrderedCo Q-10 100 mg oral capsule 1 capsule, By Mouth, 4 times a day, # 120 capsule, 11 Refills, Maintenance, 11/21/19 10:36:00 EDT, [facility]acy #[id number], 175, cm, 08/24/19 14:14:00 EDT, Height, 81.2, kg, 02/04/19 1:40:00 EDT, Dry Weight Start Date: 11/21/19 Stop Date: 11/15/20 Status: Orderedfluticasone 50 mcg/inh nasal spray See Instructions, USE 1 SPRAY INTO EACH NOSTRIL TWICE A DAY, # 16 Gm, 5 Refills, Maintenance, [facility], 30, USE 1 SPRAY INTO EACH NOSTRIL TWICE A DAY, 178, cm, 01/07/21 17:59:00 EDT, Height, 81.4, kg, 12/03/20 13:52:00 EDT, Dry Weight Start Date: 01/17/21 Status: Orderedgabapentin 600 mg oral tablet 1 tablet, By Mouth, 4 times a day, # 120 tablet, 0 Refills, Maintenance, 01/20/21 15:04:00 EDT, [facility], 178, cm, 01/07/21 17:59:00 EDT, Height, 81.4, kg, 12/03/20 13:52:00 EDT, Dry Weight Start Date: 01/20/21 Status: OrderedhydrOXYzine hydrochloride 25 mg oral tablet 1 TO 2 TABLETS, By Mouth, 3 times a day, PRN NEEDED FOR ANXIETY (VIAL), # 60 tablet, 3 Refills, Maintenance, 10/07/20 16:49:00 EDT, [facility], 178, cm, 08/31/20 11:25:00 EDT, Height, 84.9, kg, 08/31/20 1:07:00 EDT, Dry Weight Start Date: 10/07/20 Status: OrderedKeppra 500 mg oral tablet 1 tablet = 500 mg, By Mouth, 2 times a day, # 14 tablet, 0 Refills, Maintenance, 11/01/20 11:59:00 EDT, Tablet, [facility], Partial fill upon patient request if the prescription is for a schedule II opioid drug., 178, cm, 10/22/20 13:17:... Start Date: 11/01/20 Stop Date: 11/08/20 Status: Orderedmelatonin 3 mg oral tablet 1 tablet = 3 mg, By Mouth, Daily at bedtime, PRN for insomnia, # 60 tablet, 4 Refills, Maintenance, 07/18/20 17:30:00 EST, Tablet, [facility], 175, cm, 04/02/20 0:35:00 EDT, Height, [...] Maintenance, 10/06/19 15:57:00 EDT, Tablet, [facility], 175, cm, 08/24/19 14:14:00 EDT, Height, 81.2, kg, 02/04/19 1:40:00 EDT, Dry Weight Start Date: 10/06/19 Status: Orderedsertraline 50 mg oral tablet 1 tablet, By Mouth, Daily, TAKE ALONG WITH A 100MG TABLET to equal 150mg daily, # 90 tablet, 1 Refills, Maintenance, 10/06/19 15:57:00 EDT, [facility], 175, cm, 08/24/19 14:14:00 EDT, Height, 81.2, kg, 02/04/19 1:40:00 EDT, Dry Weight Start Date: 10/06/19 Status: Orderedsildenafil 50 mg oral tablet 1 tablet = 50 mg, By Mouth, Daily, PRN erectile dysfunction, 1 hour before sexual activity, # 6 tablet, 5 Refills, Maintenance, 03/11/20 14:37:00 EDT, Tablet, [facility]acy #[id number], 175, cm, 08/24/19 14:14:00 EDT, Height, 81.2, kg, 02/04/19 1:40:00 EDT,... Start Date: 03/11/20 Status: LuyvtcpVeu-W-Rmwu oral tablet See Instructions, TAKE 1 TABLET BY MOUTH ONCE A DAY, # 30 tablet, 10 Refills, Maintenance, [facility], 28, TAKE 1 TABLET BY MOUTH ONCE [...] 0 Refills, Maintenance, 10/22/20 17:52:00 EDT, Tablet, [facility]acy #[id number], Partial fill upon patient request if [...] Details, Route to Pharmacy Electronically, [facility], 178, cm, 10/22/20... Start Date: 11/01/20 Status: OrderedVitamin B1 100 mg oral tablet 1, tablet, By Mouth, Daily, # 90 tablet, Refills 2, Tot. Refills 0, Acute, 09/05/20 17:32:00 EDT, Route to Pharmacy Electronically, [facility], 178, cm, 08/31/20 11:25:00 EDT, Height, 84.9, kg,08/31/20 1:07:00 EDT, Dry Weight Start Date: 09/05/20 Status: OrderedXifaxan 550 mg oral tablet 1 tablet, By Mouth, 2 times a day, # 60 tablet, 0 Refills, Maintenance, 04/16/20 14:45:00 EST, [facility]/pharmacy #[id number], 175, cm, 04/02/20 0:35:00 EDT, Height, [...] Active Vitamin D insufficiency(Confirmed) 08/16/12 Active 1refer xcopu9dnz HEP C,b; immune HEP A,3r/o zolikahnvlqipero6fskutg7uktpwaqh counseling6? pnsrklx9cps RF ANCA,normal immunofixation,8lumbar puncture November 2011,neg lymenormal IGA neg SSA ,SSBnormal methylmalonic acid homocyseine9 legally blind;[id number] echo November 2014 Vital Signs Most recent to oldest [Reference Range]: 1 Oxygen Saturation [94-100 %] 99 % (02/10/21 8:15 PM) Pulse Rate [55-90 bpm] 100 bpm *H* (02/10/21 8:15 PM) Blood Pressure [90-138/55-84 mm Hg] 144/71 mm Hg *H* (02/10/21 8:15 PM) Respiratory Rate [16-30 br/min] 16 br/min (02/10/21 8:15 PM) Temperature [96.8-100.4 DegF] 98.2 DegF (02/10/21 8:15 PM) Mode of Delivery (Oxygen) Room air (02/10/21 8:15 PM) Blood pressure sites Arm, left (02/10/21 8:15 PM) Temperature Route Oral (02/10/21 8:15 PM) Social History Social History Type Response Smoking Status 10 or more cigarettes (1/2 p ack or more)/day in last 30 days entered on: 02/04/19 Sex
--- OUTSIDE RECORDS SUMMARY | 2022-03-14 03:13 | XMS_ITS | Continuity of Care Document ---
:1975 Author Organization [facility] Address [address] [place] [id number]- Care Team Providers Name Role Phone Jany Baig DO Primary Care Physician Encounter [facility] [place] Date(s): 02/29/20 - 03/30/20 [facility] [address] [place] [id number]- [place] Allergies, Adverse Reactions, Alerts Substance Reaction Severity Status ibuprofen1 Hx of GI Bleed Active aspirin2 Hx GI Bleed Active Tylenol3 Cirrhosis Active NSAIDs Active 1pt advised not to take NSAIDs or Tylenol due to underlying liver disease. Also had GI side effects when took too much aspirin in the past.2pt took too much in the past and had GI side [id number] advised not to take d/t underlying liver [...] 08/02/12 Given 1Admin Note: #22Result Comment: [04/29/2017] [id number] Note: [email or web address] Admin Note: 3 RDINJ Medications baclofen 10 mg oral tablet 10 mg, 1, tablet, By Mouth, 3 times a day, # 90 tablet, Refills 4, Tot. Refills 4, Maintenance, 02/16/20 17:55:00 EDT, Route to Pharmacy Electronically, [facility], 175, cm, 08/24/19 14:14:00 EDT, Height, 81.2, kg, 02/04/19 1:40:00 EDT, Dry We... Start Date: 02/16/20 Stop Date: 07/15/20 Status: Orderedchantix 1mg tablet See Instructions, TAKE 1 TABLET BY MOUTH TWICE A DAY WITH A FULL GLASS OF WATER AND CONTINUE FOR A TOTAL OF 12 WEEKS, # 56 tablet, 0 Refills, Maintenance, 02/16/20 17:54:00 EDT, [facility], 175, cm, 08/24/19 14:14:00 EDT, Height, 81.2, kg, 08/... Start Date: 02/16/20 Status: OrderedCo Q-10 100 mg oral capsule 1 capsule, By Mouth, 4 times a day, # 120 capsule, 11 Refills, Maintenance, 11/21/19 10:36:00 EDT, [facility]/pharmacy #[id number], 175, cm, 08/24/19 14:14:00 EDT, Height, 81.2, kg, 02/04/19 1:40:00 EDT, Dry Weight Start Date: 11/21/19 Stop Date: 11/15/20 Status: OrderedEngerix-B 20 mcg/mL intramuscular suspension = 20 mcg, Intramuscular, Every 30 days, rpt at 1 and 6 months, # 1 mL, 2 Refills, Maintenance, 11/02/19 9:02:00 EDT, Suspension, [facility]/pharmacy #[id number], 175, cm, 08/24/19 14:14:00 EDT, Height, 81.2, kg, 02/04/19 1:40:00 EDT, Dry Weight Start Date: 11/02/19 Status: Orderedfluticasone 50 mcg/inh nasal spray See Instructions, SPRAY 1 SPRAY INTO EACH NOSTRIL TWICE A DAY, # 16 Gm, 5 Refills, 01/26/20 9:52:00 EDT, [facility], 30, SPRAY 1 SPRAY INTO EACH NOSTRIL TWICE A DAY, 175, cm, 08/24/19 14:14:00 EDT, Height, 81.2, kg, 02/04/19 1:40:00 EDT, Dry W... Start Date: 01/26/20 Status: Orderedgabapentin 600 mg oral tablet 1 tablet = 600 mg, By Mouth, 4 times a day, to replace prior script, # 120 tablet, 3 Refills, Maintenance, 01/26/20 14:28:00 EDT, Tablet, [facility], 175, cm, 08/24/19 14:14:00 EDT, [...] 11/25/20 16:37:00 EDT, 12/01/19 16:37:00 EDT, Syrup, [facility], re sent from 10/04/17, 30... [...] 4 Refills, Maintenance, 10/06/19 16:16:00 EDT, Tablet, [facility], 175, cm, 08/24/19 14:14:00 EDT, Height, 81.2, kg, 02/04/19 1:40:00 EDT, Dry Weight Start Date: 10/06/19 Status: Orderedmupirocin 2% topical ointment See Instructions, APPLY TOPICALLY THREE TIMES DAILY (APPLY A THIN FILM), # 22 Gm, 0 Refills, Maintenance, 03/21/20 9:50:00 EDT, [facility], 8, APPLY TOPICALLY THREE TIMES DAILY (APPLY A THIN FILM), 175, cm, 08/24/19 14:14:00 EDT, Height, 81.2,... Start Date: 03/21/20 Status: Orderedmupirocin 2% topical ointment See Instructions, APPLY TOPICALLY THREE TIMES DAILY (APPLY A THIN FILM), # 22 Gm, 0 Refills, Maintenance, 01/26/20 14:28:00 EDT, [facility], 8, APPLY TOPICALLY THREE TIMES DAILY [...] EDT, Tablet, [facility], 175, cm, 08/24/19 14:14:00 EDT, Height, 81.2, kg, 02/04/19 1:40:00 EDT, Dry Weight Start Date: 10/06/19 Status: Orderedsertraline 50 mg oral tablet 1 tablet, By Mouth, Daily, TAKE ALONG WITH A 100MG TABLET to equal 150mg daily, # 90 tablet, 1 Refills, Maintenance, 10/06/19 15:57:00 EDT, [facility], 175, cm, 08/24/19 14:14:00 EDT, Height, 81.2, kg, 02/04/19 1:40:00 EDT, Dry Weight Start Date: 10/06/19 Status: Orderedsildenafil 50 mg oral tablet 1 tablet = 50 mg, By Mouth, Daily, PRN erectile dysfunction, 1 hour before sexual activity, # 6 tablet, 5 Refills, Maintenance, 03/11/20 14:37:00 EDT, Tablet, [facility]/pharmacy #[id number], 175, cm, 08/24/19 14:14:00 EDT, Height, 81.2, kg, 02/04/19 1:40:00 EDT,... Start Date: 03/11/20 Status: CwlurndAfe-H-Lnlw oral tablet 1 tablet, By Mouth, Daily, # 30 tablet, 11 Refills, Maintenance, 06/16/19 12:42:00 EST, [facility], 30, TAKE 1 TABLET BY MOUTH [...] 09/27/19 8:51:00 EDT, Route to Pharmacy Electronically, [facility], 175, cm, 08/24/19 14:14:00 EDT, Height, 81.2, kg, 02/04/19 1:40:00 EDT, Dry Weight Start Date: 09/27/19 Status: OrderedXifaxan 550 mg oral tablet See Instructions, TAKE 1 TABLET BY MOUTH TWICE A DAY, # 60 tablet, 0 Refills, 02/16/20 17:54:00 [facility], [facility], cm, 08/24/19 14:14:00 EDT, Height, 81.2, kg, 02/04/19 1:40:00 EDT, Dry Weight Start Date: 02/16/20 Status: OrderedXifaxan 550 mg oral tablet 1 tablet, By Mouth, 2 times a day, # 60 tablet, 0 Refills, Maintenance, 03/21/20 9:51:00 EDT, [facility], 175, cm, 08/24/19 14:14:00 EDT, Height, [...] Active Vitamin D insufficiency(Confirmed) 08/16/12 Active 1refer [id number] HEP C,b; immune HEP A,3r/o kjrszmivrrgurxdt4qwiktr8rjkwpvlp counseling6? rrntvoe8uxr RF ANCA,normal immunofixation,8lumbar puncture November 2011,neg lymenormal IGA neg SSA ,SSBnormal methylmalonic acid homocyseine9 legally blind;[id number] echo November 2014 Social History Social History Type Response Smoking Status 10 or more cigarettes (1/2 p ack or more)/day in last 30 days entered on: 02/04/19 Sex
--- OUTSIDE RECORDS SUMMARY | 2022-03-14 03:13 | XMS_ITS | Continuity of Care Document ---
:1975 Author Organization [facility] Address [address] [place] [address]- Care Team Providers Name Role Phone Jany Baig DO Primary Care Physician Encounter [facility] Date(s): 09/03/20 - 10/03/20 [facility] [address] [place] [address]- Allergies, Adverse Reactions, Alerts Substance Reaction Severity Status ibuprofen1 Hx of GI Bleed Active aspirin2 Hx GI Bleed Active Tylenol3 Cirrhosis Active NSAIDs Active 1pt advised not to take NSAIDs or Tylenol due to underlying liver disease. Also had GI side effects when took too much aspirin in the past.2pt took too much in the past and had GI side [id number] advised not to take d/t underlying liver [...] 08/02/12 Given 1Admin Note: #22Result Comment: [04/29/2017] [id number] Note: [email or web address] Admin Note: 3 RDINJ Medications baclofen 10 mg oral tablet 1, tablet, By Mouth, 3 times a day, # 90 tablet, Refills 0, Tot. Refills 0, Maintenance, 09/09/20 17:02:00 EDT, Route to Pharmacy Electronically, [facility], 178, cm, 08/31/20 11:25:00 EDT, Height, 84.9, kg, 08/31/20 1:07:00 EDT, Dry Weight Start Date: 09/09/20 Status: Orderedchantix 1mg tablet 1 tablet, By Mouth, 2 times a day, for 12 week(s), # 56 tablet, 0 Refills, Acute, 09/05/20 17:32:00 EDT, [facility], 178, cm, 08/31/20 11:25:00 EDT, Height, 84.9, kg, 08/31/20 1:07:00 EDT, Dry Weight Start Date: 09/05/20 Stop Date: 11/28/20 Status: OrderedCo Q-10 100 mg oral capsule 1 capsule, By Mouth, 4 times a day, # 120 capsule, 11 Refills, Maintenance, 11/21/19 10:36:00 EDT, [facility]/pharmacy #[id number], 175, cm, 08/24/19 14:14:00 EDT, Height, 81.2, kg, 02/04/19 1:40:00 EDT, Dry Weight Start Date: 11/21/19 Stop Date: 11/15/20 Status: OrderedEngerix-B 20 mcg/mL intramuscular suspension = 20 mcg, Intramuscular, Every 30 days, rpt at 1 and 6 months, # 1 mL, 2 Refills, Maintenance, 11/02/19 9:02:00 EDT, Suspension, [facility]/pharmacy #[id number], 175, cm, 08/24/19 14:14:00 EDT, Height, 81.2, kg, 02/04/19 1:40:00 EDT, Dry Weight Start Date: 11/02/19 Status: Orderedfluticasone 50 mcg/inh nasal spray See Instructions, SPRAY 1 SPRAY INTO EACH NOSTRIL TWICE A DAY, # 16 Gm, 5 Refills, 07/09/20 11:38:00EST, [facility], 30, SPRAY 1 SPRAY INTO EACH NOSTRIL TWICE A DAY, 175, cm, 04/02/20 0:35:00 EDT, Height, 100, kg, 04/02/20 0:35:00 EDT, Dry We... Start Date: 07/09/20 Status: Orderedgabapentin 600 mg oral tablet 1 tablet, By Mouth, 4 times a day, # 120 tablet, 0 Refills, Maintenance, 09/05/20 17:32:00 EDT, [facility], 178, cm, 08/31/20 11:25:00 EDT, Height, 84.9, kg, 08/31/20 1:07:00 EDT, Dry Weight Start Date: 09/05/20 Status: OrderedhydrOXYzine hydrochloride 25 mg oral tablet 1 TO 2 TABLETS, By Mouth, 3 times a day, PRN NEEDED FOR ANXIETY (VIAL), # 60 tablet, 0 Refills, Acute, 09/05/20 17:32:00 EDT, [facility], 178, cm, 08/31/20 11:25:00 EDT, [...] 11/25/20 16:37:00 EDT, 12/01/19 16:37:00 EDT, Syrup, [facility], re sent from 10/04/17, 30... Start Date: 12/01/19 Stop Date: 11/25/20 Status: Orderedmelatonin 3 mg oral tablet 1 tablet = 3 mg, By Mouth, Daily at bedtime, PRN for insomnia, # 60 tablet, 4 Refills, Maintenance, 07/18/20 17:30:00 EST, Tablet, [facility], 175, cm, 04/02/20 0:35:00 EDT, Height, 100, kg, 04/02/20 0:35:00 EDT, Dry Weight Start Date: 07/18/20 Status: Orderedmupirocin 2% topical ointment See Instructions, APPLY TOPICALLY THREE TIMES DAILY (APPLY A THIN FILM), # 22 Gm, 0 Refills, Maintenance, 04/16/20 14:45:00 EST, [facility]/pharmacy #[id number], 8, APPLY TOPICALLY THREE [...] 1 Refills, Maintenance, 10/06/19 15:57:00 EDT, Tablet, [facility], 175, cm, 08/24/19 14:14:00 EDT, Height, 81.2, kg, 02/04/19 1:40:00 EDT, Dry Weight Start Date: 10/06/19 Status: Orderedsertraline 50 mg oral tablet 1 tablet, By Mouth, Daily, TAKE ALONG WITH A 100MG TABLET to equal 150mg daily, # 90 tablet, 1 Refills, Maintenance, 10/06/19 15:57:00 EDT, [facility], 175, cm, 08/24/19 14:14:00 EDT, Height, 81.2, kg, 02/04/19 1:40:00 EDT, Dry Weight Start Date: 10/06/19 Status: Orderedsildenafil 50 mg oral tablet 1 tablet = 50 mg, By Mouth, Daily, PRN erectile dysfunction, 1 hour before sexual activity, # 6 tablet, 5 Refills, Maintenance, 03/11/20 14:37:00 EDT, Tablet, [facility]/pharmacy #[id number], 175, cm, 08/24/19 14:14:00 EDT, Height, 81.2, kg, 02/04/19 1:40:00 EDT,... Start Date: 03/11/20 Status: GoiixxcOrz-I-Bhht oral tablet See Instructions, TAKE 1 TABLET BY MOUTH ONCE A DAY, # 30 tablet, 10 Refills, [facility], 28, TAKE 1 TABLET BY MOUTH [...] Daily, # 21 tablet, 0 Refills, Maintenance, 09/30/20 15:18:00 EDT, Tablet, [facility]/pharmacy #[id number], Partial fill upon patient request if the prescription is for a schedule II opioid drug., 178, cm, 08/31/20 11:25:00 EDT, Height... Start Date: 09/30/20 Status: OrderedtraZODone 50 mg oral tablet See Instructions, TAKE 1 TO 2 TABLETS BY MOUTH AT BEDTIME (ONE DOSE IN VIAL), # 60 tablet, Refills 0, Maintenance, Instructions Replace Required Details, Route to Pharmacy Electronically, [facility], 178, cm, 08/31/20 11:25:00 EDT, Height, 84.... Start Date: 09/05/20 Status: OrderedVitamin B1 100 mg oral tablet 1, tablet, By Mouth, Daily, # 90 tablet, Refills 2, Tot. Refills 0, Acute, 09/05/20 17:32:00 EDT, Route to Pharmacy Electronically, [facility], 178, cm, 08/31/20 11:25:00 EDT, Height, 84.9, kg,08/31/20 1:07:00 EDT, Dry Weight Start Date: 09/05/20 Status: OrderedXifaxan 550 mg oral tablet 1 tablet, By Mouth, 2 times a day, # 60 tablet, 0 Refills, Maintenance, 04/16/20 14:45:00 EST, [facility]/pharmacy #[id number], 175, cm, 04/02/20 0:35:00 [...] Active Vitamin D insufficiency(Confirmed) 08/16/12 Active 1refer dzaty4dbt HEP C,b; immune HEP A,3r/o ssuaymcxbiidoqxr9vipgdf1rfjgmoql counseling6? nnbusuq1pol RF ANCA,normal immunofixation,8lumbar puncture November 2011,neg lymenormal IGA neg SSA ,SSBnormal methylmalonic acid homocyseine9 legally blind;[id number] echo November 2014 Social History Social History Type Response Smoking Status 10 or more cigarettes (1/2 p ack or more)/day in last 30 days entered on: 02/04/19 Sex
--- OUTSIDE RECORDS SUMMARY | 2022-03-14 03:13 | XMS_ITS | Continuity of Care Document ---
:1975 Author Organization [facility] Address [address] [place] [address]- Care Team Providers Name Role Phone Jany Baig DO Primary Care Physician Encounter [facility] [place] Date(s): 08/27/20 - 09/26/20 [facility] [address] [place] [address]- Allergies, Adverse Reactions, Alerts Substance Reaction Severity Status ibuprofen1 Hx of GI Bleed Active aspirin2 Hx GI Bleed Active Tylenol3 Cirrhosis Active NSAIDs Active 1pt advised not to take NSAIDs or Tylenol due to underlying liver disease. Also had GI side effects when took too much aspirin in the past.2pt took too much in the past and had GI side [id number] advised not to take d/t underlying liver [...] 08/02/12 Given 1Admin Note: #22Result Comment: [04/29/2017] [id number] Note: [email or web address] Admin Note: 3 RDINJ Medications baclofen 10 mg oral tablet 1, tablet, By Mouth, 3 times a day, # 90 tablet, Refills 0, Tot. Refills 0, Maintenance, 09/09/20 17:02:00 EDT, Route to Pharmacy Electronically, [facility], 178, cm, 08/31/20 11:25:00 EDT, Height, 84.9, kg, 08/31/20 1:07:00 EDT, Dry Weight Start Date: 09/09/20 Status: Orderedchantix 1mg tablet 1 tablet, By Mouth, 2 times a day, for 12 week(s), # 56 tablet, 0 Refills, Acute, 09/05/20 17:32:00 EDT, [facility], 178, cm, 08/31/20 11:25:00 EDT, Height, 84.9, kg, 08/31/20 1:07:00 EDT, Dry Weight Start Date: 09/05/20 Stop Date: 11/28/20 Status: OrderedCo Q-10 100 mg oral capsule 1 capsule, By Mouth, 4 times a day, # 120 capsule, 11 Refills, Maintenance, 11/21/19 10:36:00 EDT, [facility]/pharmacy #[id number], 175, cm, 08/24/19 14:14:00 EDT, Height, 81.2, kg, 02/04/19 1:40:00 EDT, Dry Weight Start Date: 11/21/19 Stop Date: 11/15/20 Status: OrderedEngerix-B 20 mcg/mL intramuscular suspension = 20 mcg, Intramuscular, Every 30 days, rpt at 1 and 6 months, # 1 mL, 2 Refills, Maintenance, 11/02/19 9:02:00 EDT, Suspension, [facility]/pharmacy #[id number], 175, cm, 08/24/19 14:14:00 EDT, Height, 81.2, kg, 02/04/19 1:40:00 EDT, Dry Weight Start Date: 11/02/19 Status: Orderedfluticasone 50 mcg/inh nasal spray See Instructions, SPRAY 1 SPRAY INTO EACH NOSTRIL TWICE A DAY, # 16 Gm, 5 Refills, 07/09/20 11:38:00EST, [facility], 30, SPRAY 1 SPRAY INTO EACH NOSTRIL TWICE A DAY, 175, cm, 04/02/20 0:35:00 EDT, Height, 100, kg, 04/02/20 0:35:00 EDT, Dry We... Start Date: 07/09/20 Status: Orderedgabapentin 600 mg oral tablet 1 tablet, By Mouth, 4 times a day, # 120 tablet, 0 Refills, Maintenance, 09/05/20 17:32:00 EDT, [facility], 178, cm, 08/31/20 11:25:00 EDT, Height, 84.9, kg, 08/31/20 1:07:00 EDT, Dry Weight Start Date: 09/05/20 Status: OrderedhydrOXYzine hydrochloride 25 mg oral tablet 1 TO 2 TABLETS, By Mouth, 3 times a day, PRN NEEDED FOR ANXIETY (VIAL), # 60 tablet, 0 Refills, Acute, 09/05/20 17:32:00 EDT, [facility], 178, cm, 08/31/20 11:25:00 EDT, [...] 11/25/20 16:37:00 EDT, 12/01/19 16:37:00 EDT, Syrup, [facility], re sent from 10/04/17, 30... Start Date: 12/01/19 Stop Date: 11/25/20 Status: Orderedmelatonin 3 mg oral tablet 1 tablet = 3 mg, By Mouth, Daily at bedtime, PRN for insomnia, # 60 tablet, 4 Refills, Maintenance, 07/18/20 17:30:00 EST, Tablet, [facility], 175, cm, 04/02/20 0:35:00 EDT, Height, 100, kg, 04/02/20 0:35:00 EDT, Dry Weight Start Date: 07/18/20 Status: Orderedmupirocin 2% topical ointment See Instructions, APPLY TOPICALLY THREE TIMES DAILY (APPLY A THIN FILM), # 22 Gm, 0 Refills, Maintenance, 04/16/20 14:45:00 EST, [facility]/pharmacy #[id number], 8, APPLY TOPICALLY THREE TIMES [...] 1 Refills, Maintenance, 10/06/19 15:57:00 EDT, Tablet, [facility], 175, cm, 08/24/19 14:14:00 EDT, Height, 81.2, kg, 02/04/19 1:40:00 EDT, Dry Weight Start Date: 10/06/19 Status: Orderedsertraline 50 mg oral tablet 1 tablet, By Mouth, Daily, TAKE ALONG WITH A 100MG TABLET to equal 150mg daily, # 90 tablet, 1 Refills, Maintenance, 10/06/19 15:57:00 EDT, [facility], 175, cm, 08/24/19 14:14:00 EDT, [...] 02/04/19 1:40:00 EDT,... Start Date: 03/11/20 Status: QrzczdeHps-W-Vbjz oral tablet See Instructions, TAKE 1 TABLET BY MOUTH ONCE A DAY, # 30 tablet, 10 Refills, [facility], 28, TAKE 1 TABLET BY MOUTH [...] Electronically, [facility], 178, cm, 08/31/20 11:25:00 EDT, Height, 84.... Start Date: 09/05/20 Status: OrderedVitamin B1 100 mg oral tablet 1, tablet, By Mouth, Daily, # 90 tablet, Refills 2, Tot. Refills 0, Acute, 09/05/20 17:32:00 EDT, Route to Pharmacy Electronically, [facility], 178, cm, 08/31/20 11:25:00 EDT, [...] Active Vitamin D insufficiency(Confirmed) 08/16/12 Active 1refer ulnnc7lcf HEP C,b; immune HEP A,3r/o goktrozmzbzeowxr0zawxzf4smxowqjq counseling6? fixndes4swf RF ANCA,normal immunofixation,8lumbar puncture November 2011,neg lymenormal IGA neg SSA ,SSBnormal methylmalonic acid homocyseine9 legally blind;xjojztihfl70jodmnk echo November 2014 Social History Social History Type Response Smoking Status 10 or more cigarettes (1/2 p ack or more)/day in last 30 days entered on: 02/04/19 Sex
--- OUTSIDE RECORDS SUMMARY | 2022-03-14 03:13 | XMS_ITS | Continuity of Care Document ---
:1975 Author Organization [facility] Address [address] [place] [address]- Care Team Providers Name Role Phone Jany Baig DO Primary Care Physician Encounter [facility] [place] Date(s): 10/01/21 - 10/08/21 [facility] [address] [place] [address]- Encounter Diagnosis COVID-19 virus infection (Discharge Diagnosis) - 10/01/21 Lower extremity edema (Discharge Diagnosis) - 10/01/21 Attending Physician: Anna BISCUIT PACKER, Christine Allergies, Adverse Reactions, Alerts Substance Reaction Severity Status ibuprofen1 Hx of GI Bleed Active aspirin2 Hx GI Bleed Active Tylenol3 Cirrhosis Active NSAIDs Active 1pt advised not to take NSAIDs or Tylenol due to underlying liver disease. Also had GI side effects when took too much aspirin in the past.2pt took too much in the past and had GI side bglyllm0oh advised not to take d/t underlying liver [...] acel (oldterm) 08/02/12 Given 1Result Comment: [04/29/2017] [id number] Note: [id number] Note: 3 [id number] Note: #2 Medications amLODIPine 5 mg oral tablet 5 mg, 1, tablet, By Mouth, Daily, # 30 tablet, Refills 5, Tot. Refills 5, Maintenance, 10/03/21 17:31:00 EDT, Route to Pharmacy Electronically, [facility]/pharmacy #[id number], Partial fill upon patient request if the prescription is for a schedule II opioid drug.... Start Date: 10/03/21 Status: OrderedCo Q-10 100 mg oral capsule 1 capsule, By Mouth, 4 times a day, # 120 capsule, 6 Refills, [facility], 174, cm, 02/27/21 15:17:00 EDT, Height, 81, kg, 02/27/21 14:06:00 EDT, Dry Weight Start Date: 07/08/21 Status: Orderedfluticasone 50 mcg/inh nasal spray See Instructions, USE 1 SPRAY INTO EACH NOSTRIL TWICE A DAY, # 16 Gm, 5 Refills, [facility],30, USE 1 SPRAY INTO EACH NOSTRIL TWICE A DAY, 174, cm, 07/14/21 8:16:00 EST, Height, 81, kg, 02/27/21 14:06:00 EDT, Dry Weight Start Date: 08/04/21 Status: Orderedfolic acid 1 mg oral tablet 1 mg, 1, tablet, By Mouth, Daily, # 30 tablet, Refills 11, Tot. Refills 11, Maintenance, 10/03/21 17:29:00 EDT, Route to Pharmacy Electronically, [facility]/pharmacy #[id number], Partial fill upon patient request if the prescription is for a schedule II opioid remedios... Start Date: 10/03/21 Stop Date: 09/28/22 Status: Orderedgabapentin 300 mg oral capsule 300 mg, 1, capsule, By Mouth, 3 times a day, # 90 capsule, Refills 3, Tot. Refills 3, Maintenance, 10/03/21 17:32:00 EDT, Route to Pharmacy Electronically, [facility]/pharmacy #[id number], Partial fill upon patientrequest if the prescription is for a schedule II... Start Date: 10/03/21 Status: OrderedhydrOXYzine hydrochloride 25 mg oral tablet 1 TO 2 TABLETS, By Mouth, 3 times a day, PRN NEEDED FOR ANXIETY (VIAL), # 60 tablet, 0 Refills, [facility], 174, cm, 08/14/21 14:21:00 EST, Height, 81, kg, 02/27/21 14:06:00 EDT, Dry Weight Start Date: 08/18/21 Status: Orderedlactulose 10 gm/15 ml oral syrup See Instructions, TAKE 30ML BY MOUTH THREE TIMES DAILY NEEDED TO ACHEIVE 3-4 BOWL MOVEMENTS PER DAY, # 3,000 mL, 10 Refills, [facility], 30, TAKE 30ML BY [...] II opioid drug. Start Date: 09/17/21 Status: OrderedLasix 40 mg oral tablet 40 mg, 1, tablet, By Mouth, 2 times a day, # 60 tablet, Refills 1, Tot. Refills 1, Maintenance, 10/03/21 17:28:00 EDT, Route to Pharmacy Electronically, [facility]/pharmacy #[id number], Partial fill upon patient request if the prescription is for a schedule II opi... Start Date: 10/03/21 Stop Date: 12/02/21 Status: Orderedmagnesium oxide 400 mg oral tablet 1 tablet = 400 mg, By Mouth, 2 times a day, for 30 days, # 60 tablet, 5 Refills, Acute 04/01/22 17:28:00 EDT, 10/03/21 17:28:00 EDT, Tablet, [facility]/pharmacy #[id number], Partial fill upon patient request if theprescription is for a schedule II opioid drug., 1... Start Date: 10/03/21 Stop Date: 04/01/22 Status: OrderedMelatonin 3 mg oral tablet 1 tablet, By Mouth, Daily at bedtime, PRN NEEDED FOR INSOMNIA (PACKAGE IN TRAY), # 60 tablet, 5 Refills, Maintenance, 06/02/21 16:17:00 EST, [facility], 28, 1 tablet By [...] Daily, # 30 each, 5 Refills, Maintenance, 10/03/21 17:29:00 EDT, EC Tablet, 175, cm, 09/27/21 21:30:00 EDT, Height, 87, kg, 09/27/21 21:30:00 EDT, Dry Weight Start Date: 10/03/21 Stop Date: 04/01/22 Status: OrderedPyridoxine Tablet 50 mg, By Mouth, Daily, Refills 0, Maintenance, 09/17/21 10:57:00 EDT, Partial fill upon patient request if the prescription is for a schedule II opioid drug. Start Date: 09/17/21 Status: OrderedrifAXIMin 550 mg oral tablet 1 tablet = 550 mg, By Mouth, 2 times a day, please contact GI for refills, # 60 tablet, 0 Refills, Maintenance, 10/03/21 17:27:00 EDT, Tablet, [facility]/pharmacy #[id number], Partial fill upon patient request if the prescription is for a schedule II opioid drug.,... Start Date: 10/03/21 Stop Date: 11/02/21 Status: DamtwpfEaj-X-Iace oral tablet 1 tablet, By Mouth, Daily, # 90 tablet, 9 Refills, [facility], 28, TAKE 1 TABLET BY MOUTH ONCE A DAY, 174, cm, 07/14/21 8:16:00 EST, Height, 81, kg, 02/27/21 14:06:00 EDT, Dry Weight Start Date: 07/22/21 Status: OrderedtraZODone 50 mg oral tablet See Instructions, TAKE 1 TO 2 TABLETS BY MOUTH AT BEDTIME (ONE DOSE IN VIAL), # 60 tablet, Refills 0, Instructions Replace Required Details, Route to Pharmacy Electronically, [facility], 174, cm, 08/14/21 14:21:00 EST, Height, 81, kg, 02/27/21... Start Date: 08/18/21 Status: OrderedVitamin B1 100 mg oral tablet 1, tablet, By Mouth, Daily, # 90 tablet, Refills 1, Route to Pharmacy Electronically, [facility], 174, cm, 02/27/21 15:17:00 [...] Active Vitamin D insufficiency(Confirmed) 08/16/12 Active 1refer [id number] HEP C,b; immune HEP A,3r/o opamyprikwfdqyfg6dylukw6lbckyfto counseling6? erfchqc7ldh RF ANCA,normal immunofixation,8lumbar puncture November 2011,neg lymenormal IGA neg SSA ,SSBnormal methylmalonic acid homocyseine9 legally blind;fyahwfqtoz34ihmboh echo November 2014 Diagnosis Diagnosis Type Effective Dates Health Status Clinical In formant Service COVID-19 virus Discharge 10/01/21 infection Diagnosis Lower extremity Discharge 10/01/21 edema Diagnosis Social History Social History Type Response Smoking Status 10 or more cigarettes (1/2 p ack or more)/day in last 30 days entered on: 02/04/19 Sex
--- OUTSIDE RECORDS SUMMARY | 2022-03-14 03:13 | XMS_ITS | Continuity of Care Document ---
:1975 Author Organization [facility] Address [address] [place] [address]- Care Team Providers Name Role Phone Jany Baig DO Primary Care Physician Encounter [facility] [place] Date(s): 08/14/21 - 09/13/21 [facility] [address] [place] [address]- Attending Physician: Venice Salmon Admitting Physician: Venice [...] in the past and had GI side [id number] advised not to take d/t underlying liver [...] acel (oldterm) 08/02/12 Given 1Result Comment: [04/29/2017] [id number] Note: [id number] Note: 3 [id number] Note: #2 Medications acamprosate 333 mg oral [...] a day, # 120 capsule, 6 Refills, [facility], 174, cm, 02/27/21 15:17:00 EDT, Height, 81, kg, 02/27/21 14:06:00 EDT, Dry Weight Start Date: 07/08/21 Status: Orderedfluticasone 50 mcg/inh nasal spray See Instructions, USE 1 SPRAY INTO EACH NOSTRIL TWICE A DAY, # 16 Gm, 5 Refills, [facility],30, USE 1 SPRAY INTO EACH NOSTRIL TWICE A DAY, 174, cm, 07/14/21 8:16:00 EST, Height, 81, kg, 02/27/21 14:06:00 EDT, Dry Weight Start Date: 08/04/21 Status: OrderedhydrOXYzine hydrochloride 25 mg oral tablet 1 TO 2 TABLETS, By Mouth, 3 times a day, PRN NEEDED FOR ANXIETY (VIAL), # 60 tablet, 0 Refills, [facility], 174, cm, 08/14/21 14:21:00 EST, Height, 81, kg, 02/27/21 14:06:00 EDT, Dry Weight Start Date: 08/18/21 Status: Orderedlactulose 10 gm/15 ml oral syrup See Instructions, TAKE 30ML BY MOUTH THREE TIMES DAILY NEEDED TO ACHEIVE 3-4 BOWL MOVEMENTS PER DAY, # 3,000 mL, 10 Refills, [facility], 30, TAKE 30ML BY MOUTH THREE TIMES DAILY NEEDED TOACHEIVE 3-4 BOWL MOVEMENTS PER DAY, 174, cm, 02/12... Start Date: 07/02/21 Status: OrderedMelatonin 3 mg oral tablet 1 tablet, By Mouth, Daily at bedtime, PRN NEEDED FOR INSOMNIA (PACKAGE IN TRAY), # 60 tablet, 5 Refills, Maintenance, 06/02/21 16:17:00 EST, [facility], 28, 1 tablet By [...] II opioid drug. Start Date: 08/28/21 Status: BcpdmprRyu-V-Thto oral tablet 1 tablet, By Mouth, Daily, # 90 tablet, 9 Refills, [facility], 28, TAKE 1 TABLET BY MOUTH ONCE A DAY, 174, cm, 07/14/21 8:16:00 EST, Height, 81, kg, 02/27/21 14:06:00 EDT, Dry Weight Start Date: 07/22/21 Status: OrderedtraZODone 50 mg oral tablet See Instructions, TAKE 1 TO 2 TABLETS BY MOUTH AT BEDTIME (ONE DOSE IN VIAL), # 60 tablet, Refills 0, Instructions Replace Required Details, Route to Pharmacy Electronically, [facility], 174, cm, 08/14/21 14:21:00 EST, Height, 81, kg, 02/27/21... Start Date: 08/18/21 Status: Orderedvarenicline 1mg tablet 1 tablet, By Mouth, 2 times a day, INSTR:TO START AFTER 0.5 MG TABS, # 56 tablet, 2 Refills, [id number], 172, cm, 08/28/21 23:35:00 EDT, Height, 85.4, kg, 08/20/21 16:20:00 EST, Dry Weight Start Date: 09/01/21 Status: OrderedVitamin B1 100 mg oral tablet 1, tablet, By Mouth, Daily, # 90 tablet, Refills 1, Route to Pharmacy Electronically, [facility], 174, cm, 02/27/21 15:17:00 EDT, Height, [...] Active Vitamin D insufficiency(Confirmed) 08/16/12 Active 1refer srely0srm HEP C,b; immune HEP A,3r/o timbaufvgyaloheb8taqmyy3ldnhzusc counseling6? mzibtyd6rwu RF ANCA,normal immunofixation,8lumbar puncture November 2011,neg lymenormal IGA neg SSA ,SSBnormal methylmalonic acid homocyseine9 legally blind;yncevwposr78tzlmqx echo November 2014 Social History Social History Type Response Smoking Status 10 or more cigarettes (1/2 p ack or more)/day in last 30 days entered on: 02/04/19 Sex Male
--- OUTSIDE RECORDS SUMMARY | 2022-03-14 03:13 | XMS_ITS | Continuity of Care Document ---
:1975 Author Organization [facility] Address [address] [place] [address]- Care Team Providers Name Role Phone Jany Baig DO Primary Care Physician Encounter [facility] Date(s): 04/22/21 - 05/22/21 [facility] [address] [place] [address]- Allergies, Adverse Reactions, Alerts Substance Reaction Severity Status ibuprofen1 Hx of GI Bleed Active aspirin2 Hx GI Bleed Active Tylenol3 Cirrhosis Active NSAIDs Active 1pt advised not to take NSAIDs or Tylenol due to underlying liver disease. Also had GI side effects when took too much aspirin in the past.2pt took too much in the past and had GI side itgbnrx0ms advised not to take d/t underlying liver [...] acel (oldterm) 08/02/12 Given 1Result Comment: [04/29/2017] [id number] Note: [id number] Note: 3 [id number] Note: #2 Medications baclofen 10 mg oral tablet 1, tablet, By Mouth, 3 times a day, # 90 tablet, Refills 0, Route to Pharmacy Electronically, [facility], 174, cm, 02/27/21 15:17:00 EDT, Height, 81, kg, 02/27/21 14:06:00 EDT, Dry Weight Start Date: 05/12/21 Status: Orderedchantix 1mg tablet 1 tablet, By Mouth, 2 times a day, # 56 tablet, 0 Refills, Acute, 11/22/20 16:13:00 EDT, [facility], 178, cm, 11/12/20 15:32:00 EDT, Height, 84.9, kg, 08/31/20 1:07:00 EDT, Dry Weight Start Date: 11/22/20 Status: OrderedCo Q-10 100 mg oral capsule See Instructions, TAKE 1 CAPSULE BY MOUTH FOUR TIMES DAILY, # 120 capsule, 7 Refills, Maintenance, [facility], 178, cm, 10/22/20 13:17:00 EDT, Height, 84.9, kg, 08/31/20 1:07:00 EDT, Dry Weight Start Date: 11/01/20 Status: OrderedCo Q-10 100 mg oral capsule 1 capsule, By Mouth, 4 times a day, # 120 capsule, 11 Refills, Maintenance, 11/21/19 10:36:00 EDT, [facility]/pharmacy #[id number], 175, cm, 08/24/19 14:14:00 EDT, Height, 81.2, kg, 02/04/19 1:40:00 EDT, Dry Weight Start Date: 11/21/19 Stop Date: 11/15/20 Status: Orderedfluticasone 50 mcg/inh nasal spray See Instructions, USE 1 SPRAY INTO EACH NOSTRIL TWICE A DAY, # 16 Gm, 5 Refills, Maintenance, [facility], 30, USE 1 SPRAY INTO EACH NOSTRIL TWICE A DAY, 178, cm, 01/07/21 17:59:00 EDT, Height, 81.4, kg, 12/03/20 13:52:00 EDT, Dry Weight Start Date: 01/17/21 Status: Orderedgabapentin 600 mg oral tablet 1 tablet, By Mouth, 4 times a day, # 120 tablet, 0 Refills, [facility], 174, cm, 02/27/21 15:17:00 EDT, Height, 81, kg, 02/27/21 14:06:00 EDT, Dry Weight Start Date: 05/12/21 Status: OrderedhydrOXYzine hydrochloride 25 mg oral tablet 1 TO 2 TABLETS, By Mouth, 3 times a day, PRN NEEDED FOR ANXIETY (VIAL), # 60 tablet, 0 Refills, [facility], 174, cm, 02/27/21 15:17:00 EDT, Height, 81, kg, 02/27/21 14:06:00 EDT, Dry Weight Start Date: 05/12/21 Status: OrderedMelatonin 3 mg oral tablet 1 tablet, By Mouth, Daily at bedtime, PRN NEEDED FOR INSOMNIA (PACKAGE IN TRAY), # 60 tablet, 0 Refills, [facility], 28, TAKE 1 TABLET BY MOUTH AT BEDTIME NEEDED FOR INSOMNIA (PACKAGE IN TRAY), 174, cm, 02/27/21 15:17:00 EDT, Height, 81,... Start Date: 05/12/21 Status: OrderedOXcarbazepine 150 mg oral tablet Refills [...] Refills, Maintenance, 10/06/19 15:57:00 EDT, Tablet, [facility], 175, cm, 08/24/19 14:14:00 EDT, Height, 81.2, kg, 02/04/19 1:40:00 EDT, Dry Weight Start Date: 10/06/19 Status: Orderedsertraline 50 mg oral tablet 1 tablet, By Mouth, Daily, TAKE ALONG WITH A 100MG TABLET to equal 150mg daily, # 90 tablet, 1 Refills, Maintenance, 10/06/19 15:57:00 EDT, [facility], 175, cm, 08/24/19 14:14:00 EDT, Height, 81.2, kg, 02/04/19 1:40:00 EDT, Dry Weight Start Date: 10/06/19 Status: Orderedsildenafil 50 mg oral tablet 1 tablet = 50 mg, By Mouth, Daily, PRN erectile dysfunction, 1 hour before sexual activity, # 6 tablet, 5 Refills, Maintenance, 03/11/20 14:37:00 EDT, Tablet, [facility]/pharmacy #[id number], 175, cm, 08/24/19 14:14:00 EDT, Height, 81.2, kg, 02/04/19 1:40:00 EDT,... Start Date: 03/11/20 Status: RqcieaaKqa-W-Pnmc oral tablet See Instructions, TAKE 1 TABLET [...] 0 Refills, Maintenance, 10/22/20 17:52:00 EDT, Tablet, [facility]/pharmacy #[id number], Partial fill upon patient request if the prescription is for a schedule II opioid drug., 178, cm, 10/22/20 13:17:00 EDT, Height... Start Date: 10/22/20 Status: OrderedtraZODone 50 mg oral tablet See Instructions, TAKE 1 TO 2 TABLETS BY MOUTH AT BEDTIME (ONE DOSE IN VIAL), # 60 tablet, Refills 5, Instructions Replace Required Details, Route to Pharmacy Electronically, [facility], 174, cm, 02/11/21 12:09:00 EDT, Height, 86.6, kg, ... Start Date: 02/15/21 Status: OrderedVitamin B1 100 mg oral tablet 1, tablet, By Mouth, Daily, # 90 tablet, Refills 2, Tot. Refills 0, Acute, 09/05/20 17:32:00 EDT, Route to Pharmacy Electronically, [facility], 178, cm, 08/31/20 11:25:00 EDT, Height, 84.9, kg,08/31/20 1:07:00 EDT, Dry Weight Start Date: 09/05/20 Status: OrderedXifaxan 550 mg oral tablet 1 tablet, By Mouth, 2 times a day, # 60 tablet, 0 Refills, Maintenance, 04/16/20 14:45:00 EST, [facility]/pharmacy #[id number], 175, cm, 04/02/20 0:35:00 EDT, [...] Active Vitamin D insufficiency(Confirmed) 08/16/12 Active 1refer [id number] HEP C,b; immune HEP A,3r/o djqjohciipwnuhuk0xdfqcs8flenkqwd counseling6? cptbvrj5xnk RF ANCA,normal immunofixation,8lumbar puncture November 2011,neg lymenormal IGA neg SSA ,SSBnormal methylmalonic acid homocyseine9 legally blind;qaclnfeyux77yusftr echo November 2014 Social History Social History Type Response Smoking Status 10 or more cigarettes (1/2 p ack or more)/day in last 30 days entered on: 02/04/19 Sex Male
--- OUTSIDE RECORDS SUMMARY | 2022-03-14 03:13 | XMS_ITS | Continuity of Care Document ---
:1975 Author Organization [facility] Address [address] [place] [id number]- Care Team Providers Name Role Phone Jany Baig DO Primary Care Physician Encounter [facility] Date(s): 01/31/21 - 03/02/21 [facility] [address] [place] [id number] [place] Allergies, Adverse Reactions, Alerts Substance Reaction Severity Status ibuprofen1 Hx of GI Bleed Active aspirin2 Hx GI Bleed Active Tylenol3 Cirrhosis Active NSAIDs Active 1pt advised not to take NSAIDs or Tylenol due to underlying liver disease. Also had GI side effects when took too much aspirin in the past.2pt took too much in the past and had GI side zpqojwv8dl advised not to take d/t underlying liver [...] acel (oldterm) 08/02/12 Given 1Result Comment: [04/29/2017] [id number] Note: [id number] Note: 3 [id number] Note: #2 Medications baclofen 10 mg oral tablet 1, tablet, By Mouth, 3 times a day, # 90 tablet, Refills 0, Route to Pharmacy Electronically, [facility], 174, cm, 02/11/21 12:09:00 EDT, Height, 86.6, kg, 02/06/21 14:20:00 EDT, Dry Weight Start Date: 02/19/21 Status: Orderedchantix 1mg tablet 1 tablet, By Mouth, 2 times a day, # 56 tablet, 0 Refills, Acute, 11/22/20 16:13:00 EDT, [facility], 178, cm, 11/12/20 15:32:00 EDT, Height, 84.9, kg, 08/31/20 1:07:00 EDT, Dry Weight Start Date: 11/22/20 Status: OrderedCo Q-10 100 mg oral capsule See Instructions, TAKE 1 CAPSULE BY MOUTH FOUR TIMES DAILY, # 120 capsule, 7 Refills, Maintenance, [facility], 178, cm, 10/22/20 13:17:00 EDT, Height, 84.9, kg, 08/31/20 1:07:00 EDT, Dry Weight Start Date: 11/01/20 Status: OrderedCo Q-10 100 mg oral capsule 1 capsule, By Mouth, 4 times a day, # 120 capsule, 11 Refills, Maintenance, 11/21/19 10:36:00 EDT, [facility]/pharmacy #[id number], 175, cm, 08/24/19 14:14:00 EDT, Height, 81.2, kg, 02/04/19 1:40:00 EDT, Dry Weight Start Date: 11/21/19 Stop Date: 11/15/20 Status: Orderedfluticasone 50 mcg/inh nasal spray See Instructions, USE 1 SPRAY INTO EACH NOSTRIL TWICE A DAY, # 16 Gm, 5 Refills, Maintenance, [facility], 30, USE 1 SPRAY INTO EACH NOSTRIL TWICE A DAY, 178, cm, 01/07/21 17:59:00 EDT, Height, 81.4, kg, 12/03/20 13:52:00 EDT, Dry Weight Start Date: 01/17/21 Status: Orderedgabapentin 600 mg oral tablet 1 tablet, By Mouth, 4 times a day, # 120 tablet, 0 Refills, [facility], 174, cm, 02/11/21 12:09:00 EDT, Height, 86.6, kg, 02/06/21 14:20:00 EDT, Dry Weight Start Date: 02/19/21 Status: OrderedhydrOXYzine hydrochloride 25 mg oral tablet 1 TO 2 TABLETS, By Mouth, 3 times a day, PRN NEEDED FOR ANXIETY (VIAL), # 60 tablet, 2 Refills, [facility], 174, cm, 02/11/21 12:09:00 EDT, Height, 86.6, kg, 02/06/21 14:20:00 EDT, Dry Weight Start Date: 02/19/21 Status: Orderedmelatonin 3 mg oral tablet 1 tablet = 3 mg, By Mouth, Daily at bedtime, PRN for insomnia, # 60 tablet, 4 Refills, Maintenance, 07/18/20 17:30:00 EST, Tablet, [facility], 175, cm, 04/02/20 0:35:00 EDT, [...] 1 Refills, Maintenance, 10/06/19 15:57:00 EDT, Tablet, [facility], 175, cm, 08/24/19 14:14:00 EDT, Height, 81.2, kg, 02/04/19 1:40:00 EDT, Dry Weight Start Date: 10/06/19 Status: Orderedsertraline 50 mg oral tablet 1 tablet, By Mouth, Daily, TAKE ALONG WITH A 100MG TABLET to equal 150mg daily, # 90 tablet, 1 Refills, Maintenance, 10/06/19 15:57:00 EDT, [facility], 175, cm, 08/24/19 14:14:00 EDT, Height, 81.2, kg, 02/04/19 1:40:00 EDT, Dry Weight Start Date: 10/06/19 Status: Orderedsildenafil 50 mg oral tablet 1 tablet = 50 mg, By Mouth, Daily, PRN erectile dysfunction, 1 hour before sexual activity, # 6 tablet, 5 Refills, Maintenance, 03/11/20 14:37:00 EDT, Tablet, [facility]/pharmacy #[id number], 175, cm, 08/24/19 14:14:00 EDT, Height, 81.2, kg, 02/04/19 1:40:00 EDT,... Start Date: 03/11/20 Status: WfquyppMyj-Y-Kwov oral tablet See Instructions, TAKE 1 TABLET BY MOUTH ONCE A DAY, # 30 tablet, 10 Refills, Maintenance, [facility], [facility], TAKE 1 TABLET BY MOUTH ONCE A DAY, 175, cm, 04/02/20 0:35:00 EDT, Height, 100, kg, 04/02/20 0:35:00 EDT, Dry Weight Start Date: 07/18/20 Status: Orderedtranexamic acid 650 mg oral tablet 1 tablet = 650 mg, By Mouth, Daily, # 21 tablet, 0 Refills, Maintenance, 10/22/20 17:52:00 EDT, Tablet, [facility]/pharmacy #[id number], Partial fill upon patient request if the prescription is for a schedule II opioid drug., 178, cm, 10/22/20 13:17:00 EDT, Height... Start Date: 10/22/20 Status: OrderedtraZODone 50 mg oral tablet See Instructions, TAKE 1 TO 2 TABLETS BY MOUTH AT BEDTIME (ONE DOSE IN VIAL), # 60 tablet, Refills 5, Instructions Replace Required Details, Route to Pharmacy Electronically, [facility], 174, cm, 02/11/21 12:09:00 EDT, Height, 86.6, kg, ... Start Date: 02/15/21 Status: OrderedVitamin B1 100 mg oral tablet 1, tablet, By Mouth, Daily, # 90 tablet, Refills 2, Tot. Refills 0, Acute, 09/05/20 17:32:00 EDT, Route to Pharmacy Electronically, [facility], 178, cm, 08/31/20 11:25:00 EDT, Height, 84.9, kg,08/31/20 1:07:00 EDT, Dry Weight Start Date: 09/05/20 Status: OrderedXifaxan 550 mg oral tablet 1 tablet, By Mouth, 2 times a day, # 60 tablet, 0 Refills, Maintenance, 04/16/20 14:45:00 EST, [facility]/pharmacy #[id number], 175, cm, 04/02/20 0:35:00 [...] Active Vitamin D insufficiency(Confirmed) 08/16/12 Active 1refer bcegf9bxb HEP C,b; immune HEP A,3r/o satkzedkblhgflcj9raupqw9xstzwryd counseling6? fksjacc8fxz RF ANCA,normal immunofixation,8lumbar puncture November 2011,neg lymenormal IGA neg SSA ,SSBnormal methylmalonic acid homocyseine9 legally blind;jalelbwmnz21lcwfgv echo November 2014 Social History Social History Type Response Smoking Status 10 or more cigarettes (1/2 p ack or more)/day in last 30 days entered on: 02/04/19 Sex
--- OUTSIDE RECORDS SUMMARY | 2022-03-14 03:13 | XMS_ITS | Continuity of Care Document ---
:1975 Author Organization [facility] Address [address] [place] [address]- Care Team Providers Name Role Phone Jany Baig DO Primary Care Physician [place] [facility] [place]20 [facility] [address] [place] [address]- Attending Physician: Jany Baig DO Allergies, Adverse [...] in the past and had GI side [id number] advised not to take d/t underlying liver [...] vaccine 03/16/15 Given hepatitis B adult vaccine4 9/17/13 Given Pneumococcal Vaccine (oldterm) 08/02/12 Given Tet/diphth/pertussis, acel (oldterm) 08/02/12 Given 1Admin Note: #22Result Comment: [04/29/2017] [id number] Note: [email or web address] Admin Note: 3 RDINJ Medications baclofen 10 mg oral tablet 10 mg, 1, tablet, By Mouth, 3 times a day, pt needs to schedule appt, # 90 tablet, Refills 0, Tot. Refills 0, Maintenance, 07/18/20 17:30:00 EST, Route to Pharmacy Electronically, [facility], 175, cm, 04/02/20 0:35:00 EDT, Height, 100, kg, ... Start Date: 07/18/20 Stop Date: 08/17/20 Status: Orderedchantix 1mg tablet 1 tablet, By Mouth, 2 times a day, for 12 week(s), neeeds to schedule appt, # 56 tablet, 0 Refills, Acute 09/18/20 11:11:00 EDT, 06/26/20 11:11:00 EST, [facility], 175, cm, 04/02/20 0:35:00 EDT, Height, 100, kg, 04/02/20 0:35:00 EDT, Dry Weight Start Date: 06/26/20 Stop Date: 09/18/20 Status: Orderedchantix 1mg tablet 1 tablet, By Mouth, 2 times a day, for 12 week(s), # 56 tablet, 0 Refills, Acute, 05/21/20 12:54:00 EST, [facility], 175, cm, 04/02/20 0:35:00 EDT, Height, 100, kg, 04/02/20 0:35:00 EDT, Dry Weight Start Date: 05/21/20 Stop Date: 08/13/20 Status: OrderedCo Q-10 100 mg oral capsule 1 capsule, By Mouth, 4 times a day, # 120 capsule, 11 Refills, Maintenance, 11/21/19 10:36:00 EDT, [facility]/pharmacy #[id number], 175, cm, 08/24/19 14:14:00 EDT, Height, 81.2, kg, 02/04/19 1:40:00 EDT, Dry Weight Start Date: 11/21/19 Stop Date: 11/15/20 Status: OrderedEngerix-B 20 mcg/mL intramuscular suspension = 20 mcg, Intramuscular, Every 30 days, rpt at 1 and 6 months, # 1 mL, 2 Refills, Maintenance, 11/02/19 9:02:00 EDT, Suspension, [facility]/pharmacy #[id number], 175, cm, 08/24/19 14:14:00 EDT, Height, 81.2, kg, 02/04/19 1:40:00 EDT, Dry Weight Start Date: 11/02/19 Status: Orderedfluticasone 50 mcg/inh nasal spray See Instructions, SPRAY 1 SPRAY INTO EACH NOSTRIL TWICE A DAY, # 16 Gm, 5 Refills, 07/09/20 11:38:00EST, [facility], 30, SPRAY 1 SPRAY INTO EACH NOSTRIL TWICE A DAY, 175, cm, 04/02/20 0:35:00 EDT, Height, 100, kg, 04/02/20 0:35:00 EDT, Dry We... Start Date: 07/09/20 Status: Orderedgabapentin 600 mg oral tablet 1 tablet, By Mouth, 4 times a day, pt needs to schedule appt, # 120 tablet, 0 Refills, Maintenance, 07/18/20 17:30:00 EST, [facility], 175, cm, 04/02/20 0:35:00 EDT, Height, 100, kg, 04/02/20 0:35:00 EDT, Dry Weight Start Date: 07/18/20 Status: OrderedhydrOXYzine hydrochloride 25 mg oral tablet 1 TO 2 TABLETS, By Mouth, 3 times a day, PRN NEEDED FOR ANXIETY (VIAL), pt needs to schedule appt, # 60 tablet, 1 Refills, Maintenance, 07/18/20 17:31:00 EST, [facility], 175, cm, 04/02/20 0:35:00 EDT, Height, 100, kg, 04/02/20 0:35:00 EDT,... Start Date: 07/18/20 Status: Orderedlactulose 10 gm/15 ml oral syrup 30 mL = 20 Gm, By Mouth, 3 times a day, PRN Other, for 30 days, PRN to acheive 3-4 BMs per day fill in prefilled syringes, # 3,000 mL, 11 Refills, Acute 11/25/20 16:37:00 EDT, 12/01/19 16:37:00 EDT, Syrup, [facility], re sent from 10/04/17, 30... Start [...] 4 Refills, Maintenance, 07/18/20 17:30:00 EST, Tablet, [facility], 175, cm, 04/02/20 0:35:00 EDT, Height, [...] Gm, 0 Refills, Maintenance, 04/16/20 14:45:00 EST, [facility]/pharmacy #[id number], 8, APPLY TOPICALLY THREE TIMES DAILY (APPLY A THIN FILM), 175, cm, 04/02/20 0:35:00 EDT, Height, 100,... Start Date: 04/16/20 Status: Orderedmupirocin 2% topical ointment See Instructions, APPLY TOPICALLY THREE TIMES DAILY (APPLY A THIN FILM), # 22 Gm, 0 Refills, Acute, [facility], 8, APPLY TOPICALLY THREE TIMES DAILY [...] 1 Refills, Maintenance, 10/06/19 15:57:00 EDT, Tablet, [facility], 175, cm, 08/24/19 14:14:00 EDT, Height, 81.2, kg, 02/04/19 1:40:00 EDT, Dry Weight Start Date: 10/06/19 Status: Orderedsertraline 50 mg oral tablet 1 tablet, By Mouth, Daily, TAKE ALONG WITH A 100MG TABLET to equal 150mg daily, # 90 tablet, 1 Refills, Maintenance, 10/06/19 15:57:00 EDT, [facility], 175, cm, 08/24/19 14:14:00 EDT, Height, 81.2, kg, 02/04/19 1:40:00 EDT, Dry Weight Start Date: 10/06/19 Status: Orderedsildenafil 50 mg oral tablet 1 tablet = 50 mg, By Mouth, Daily, PRN erectile dysfunction, 1 hour before sexual activity, # 6 tablet, 5 Refills, Maintenance, 03/11/20 14:37:00 EDT, Tablet, [facility]/pharmacy #[id number], 175, cm, 08/24/19 14:14:00 EDT, Height, 81.2, kg, 02/04/19 1:40:00 EDT,... Start Date: 03/11/20 Status: FmdkjfhYrk-L-Gqdi oral tablet 1 tablet, By Mouth, Daily, # 90 tablet, 1 Refills, Maintenance, 05/21/20 9:35:00 EST, [facility], 1 tablet By Mouth Daily, 175, cm, 04/02/20 0:35:00 EDT, Height, 100, kg, 04/02/20 0:35:00 EDT, Dry Weight Start Date: 05/21/20 Status: XmolsbxEop-Q-Tjah oral tablet See Instructions, TAKE 1 TABLET BY MOUTH ONCE A DAY, # 30 tablet, 10 Refills, [facility], TAKE 1 TABLET BY MOUTH ONCE [...] 09/27/19 8:51:00 EDT, Route to Pharmacy Electronically, [facility], 175, cm, 08/24/19 14:14:00 EDT, Height, [...] Active Vitamin D insufficiency(Confirmed) 08/16/12 Active 1refer [id number] HEP C,b; immune HEP A,3r/o erltuzuqwlvxvybo3hdudbh4hifahgrn counseling6? [id number] RF ANCA,normal immunofixation,8lumbar puncture November 2011,neg lymenormal IGA neg SSA ,SSBnormal methylmalonic acid homocyseine9 legally blind;[id number] echo November 2014 Social History Social History Type Response Smoking Status 10 or more cigarettes (1/2 p ack or more)/day in last 30 days entered on: 02/04/19 Sex
--- OUTSIDE RECORDS SUMMARY | 2022-03-14 03:13 | XMS_ITS | Continuity of Care Document ---
:1975 Author Organization [facility] Address [address] [place] [address]- Care Team Providers Name Role Phone Jany Baig DO Primary Care Physician Encounter [facility] Date(s): 05/15/20 - 06/14/20 [facility] [address] [place] [id number]- Allergies, Adverse Reactions, Alerts Substance Reaction Severity Status ibuprofen1 Hx of GI Bleed Active aspirin2 Hx GI Bleed Active Tylenol3 Cirrhosis Active NSAIDs Active 1pt advised not to take NSAIDs or Tylenol due to underlying liver disease. Also had GI side effects when took too much aspirin in the past.2pt took too much in the past and had GI side [id number] advised not to take d/t underlying liver [...] 08/02/12 Given 1Admin Note: #22Result Comment: [04/29/2017] [id number] Note: [email or web address] Admin Note: 3 RDINJ Medications baclofen 10 mg oral tablet 10 mg, 1, tablet, By Mouth, 3 times a day, # 90 tablet, Refills 4, Tot. Refills 4, Maintenance, 02/16/20 17:55:00 EDT, [facility], 175, cm, 08/24/19 14:14:00 EDT, Height, 81.2, kg, 02/04/19 1:40:00 EDT, Dry We... Start Date: 02/16/20 Stop Date: 07/15/20 Status: Orderedchantix 1mg tablet 1 tablet, By Mouth, 2 times a day, for 12 week(s), # 56 tablet, 0 Refills, Acute, 05/21/20 12:54:00 EST, [facility], 175, cm, 04/02/20 0:35:00 EDT, Height, 100, kg, 04/02/20 0:35:00 EDT, Dry Weight Start Date: 05/21/20 Stop Date: 08/13/20 Status: OrderedCo Q-10 100 mg oral capsule 1 capsule, By Mouth, 4 times a day, # 120 capsule, 11 Refills, Maintenance, 11/21/19 10:36:00 EDT, [facility]/pharmacy #[id number], 175, cm, 08/24/19 14:14:00 EDT, Height, 81.2, kg, 02/04/19 1:40:00 EDT, Dry Weight Start Date: 11/21/19 Stop Date: 11/15/20 Status: OrderedEngerix-B 20 mcg/mL intramuscular suspension = 20 mcg, Intramuscular, Every 30 days, rpt at 1 and 6 months, # 1 mL, 2 Refills, Maintenance, 11/02/19 9:02:00 EDT, Suspension, [facility]/pharmacy #[id number], 175, cm, 08/24/19 14:14:00 EDT, Height, 81.2, kg, 02/04/19 1:40:00 EDT, Dry Weight Start Date: 11/02/19 Status: Orderedfluticasone 50 mcg/inh nasal spray See Instructions, SPRAY 1 SPRAY INTO EACH NOSTRIL TWICE A DAY, # 16 Gm, 5 Refills, 01/26/20 9:52:00 EDT, [facility], 30, SPRAY 1 SPRAY INTO EACH NOSTRIL TWICE A DAY, 175, cm, 08/24/19 14:14:00 EDT, Height, 81.2, kg, 02/04/19 1:40:00 EDT, Dry W... Start Date: 01/26/20 Status: Orderedgabapentin 600 mg oral tablet 1 tablet, By Mouth, 4 times a day, # 120 tablet, 2 Refills, Maintenance, 05/21/20 12:54:00 EST, [facility], 175, cm, 04/02/20 0:35:00 EDT, Height, 100, kg, 04/02/20 0:35:00 EDT, Dry Weight Start Date: 05/21/20 Status: OrderedhydrOXYzine hydrochloride 25 mg oral tablet 1 TO 2 TABLETS, By Mouth, 3 times a day, PRN NEEDED FOR ANXIETY (VIAL), # 60 tablet, 1 Refills, Acute, 05/21/20 12:54:00 EST, [facility], 175, cm, 04/02/20 0:35:00 EDT, Height, [...] 11/25/20 16:37:00 EDT, 12/01/19 16:37:00 EDT, Syrup, [facility], re sent from 10/04/17, 30... Start [...] 4 Refills, Maintenance, 10/06/19 16:16:00 EDT, Tablet, [facility], 175, cm, 08/24/19 14:14:00 EDT, Height, [...] Gm, 0 Refills, Maintenance, 04/16/20 14:45:00 EST, [facility]/pharmacy #[id number], 8, APPLY TOPICALLY THREE TIMES [...] 1 Refills, Maintenance, 10/06/19 15:57:00 EDT, Tablet, [facility], 175, cm, 08/24/19 14:14:00 EDT, Height, 81.2, kg, 02/04/19 1:40:00 EDT, Dry Weight Start Date: 10/06/19 Status: Orderedsertraline 50 mg oral tablet 1 tablet, By Mouth, Daily, TAKE ALONG WITH A 100MG TABLET to equal 150mg daily, # 90 tablet, 1 Refills, Maintenance, 10/06/19 15:57:00 EDT, [facility], 175, cm, 08/24/19 14:14:00 EDT, Height, 81.2, kg, 02/04/19 1:40:00 EDT, Dry Weight Start Date: 10/06/19 Status: Orderedsildenafil 50 mg oral tablet 1 tablet = 50 mg, By Mouth, Daily, PRN erectile dysfunction, 1 hour before sexual activity, # 6 tablet, 5 Refills, Maintenance, 03/11/20 14:37:00 EDT, Tablet, [facility]/pharmacy #[id number], 175, cm, 08/24/19 14:14:00 EDT, Height, 81.2, kg, 02/04/19 1:40:00 EDT,... Start Date: 03/11/20 Status: WkvhjgvNmu-X-Azfv oral tablet 1 tablet, By Mouth, Daily, # 90 tablet, 1 Refills, Maintenance, 05/21/20 9:35:00 EST, [facility], 1 tablet By Mouth Daily, 175, [...] 09/27/19 8:51:00 EDT, Route to Pharmacy Electronically, [facility], 175, cm, 08/24/19 14:14:00 EDT, Height, 81.2, kg, 02/04/19 1:40:00 EDT, Dry Weight Start Date: 09/27/19 Status: OrderedXifaxan 550 mg oral tablet 1 tablet, By Mouth, 2 times a day, # 60 tablet, 0 Refills, Maintenance, 04/16/20 14:45:00 EST, [facility]/pharmacy #[id number], 175, cm, 04/02/20 0:35:00 EDT, [...] Active Vitamin D insufficiency(Confirmed) 08/16/12 Active 1refer cccty2xba HEP C,b; immune HEP A,3r/o tdopbtofredldttj4zabgkl2zhiftpks counseling6? oycabfl0jpb RF ANCA,normal immunofixation,8lumbar puncture November 2011,neg lymenormal IGA neg SSA ,SSBnormal methylmalonic acid homocyseine9 legally blind;[id number] echo November 2014 Social History Social History Type Response Smoking Status 10 or more cigarettes (1/2 p ack or more)/day in last 30 days entered on: 02/04/19 Sex
--- OUTSIDE RECORDS SUMMARY | 2022-03-14 03:13 | XMS_ITS | Continuity of Care Document ---
:1975 Author Organization [facility] Address [address] [place] [address]- Care Team Providers Name Role Phone Jany Baig DO Primary Care Physician Encounter [facility] [place] Date(s): 08/14/21 - 08/21/21 [facility] [address] [place] [address]- Encounter Diagnosis Fall in home (Discharge Diagnosis) - 08/14/21 [place]AN (headache) (Discharge Diagnosis) - 08/14/21 Low back pain (Discharge Diagnosis) - 08/14/21 Attending Physician: Anna WILSON, Christine Referring Physician: Jany Baig DO Allergies, Adverse [...] in the past and had GI side [id number] advised not to take d/t underlying liver [...] acel (oldterm) 08/02/12 Given 1Result Comment: [04/29/2017] [id number] Note: [id number] Note: 3 [id number] Note: #2 Medications baclofen 10 mg oral tablet 1, tablet, By Mouth, 3 times a day, # 90 tablet, Refills 0, Route to Pharmacy Electronically, [facility], 174, cm, 08/14/21 14:21:00 EST, Height, 81, kg, 02/27/21 14:06:00 EDT, Dry Weight Start Date: 08/18/21 Status: OrderedCo Q-10 100 mg oral capsule 1 capsule, By Mouth, 4 times a day, # 120 capsule, 6 Refills, [facility], 174, cm, 02/27/21 15:17:00 EDT, Height, 81, kg, 02/27/21 14:06:00 EDT, Dry Weight Start Date: 07/08/21 Status: Orderedfluticasone 50 mcg/inh nasal spray See Instructions, USE 1 SPRAY INTO EACH NOSTRIL TWICE A DAY, # 16 Gm, 5 Refills, [facility],30, USE 1 SPRAY INTO EACH NOSTRIL TWICE A DAY, 174, cm, 07/14/21 8:16:00 EST, Height, 81, kg, 02/27/21 14:06:00 EDT, Dry Weight Start Date: 08/04/21 Status: Orderedgabapentin 600 mg oral tablet 1 tablet, By Mouth, 4 times a day, # 120 tablet, 0 Refills, [facility], 174, cm, 08/14/21 14:21:00 EST, Height, 81, kg, 02/27/21 14:06:00 EDT, Dry Weight Start Date: 08/18/21 Status: OrderedhydrOXYzine hydrochloride 25 mg oral tablet 1 TO 2 TABLETS, By Mouth, 3 times a day, PRN NEEDED FOR ANXIETY (VIAL), # 60 tablet, 0 Refills, [facility], 174, cm, 08/14/21 14:21:00 EST, Height, 81, kg, 02/27/21 14:06:00 EDT, Dry Weight Start Date: 08/18/21 Status: Orderedlactulose 10 gm/15 ml oral syrup See Instructions, TAKE 30ML BY MOUTH THREE TIMES DAILY NEEDED TO ACHEIVE 3-4 BOWL MOVEMENTS PER DAY, # 3,000 mL, 10 Refills, [facility], 30, TAKE 30ML BY MOUTH THREE TIMES DAILY NEEDED TOACHEIVE 3-4 BOWL MOVEMENTS PER DAY, 174, cm, 02/12... Start Date: 07/02/21 Status: OrderedMelatonin 3 mg oral tablet 1 tablet, By Mouth, Daily at bedtime, PRN NEEDED FOR INSOMNIA (PACKAGE IN TRAY), # 60 tablet, 5 Refills, Maintenance, 06/02/21 16:17:00 EST, [facility], 28, 1 tablet By Mouth Daily at bedtime,PRN: NEEDED FOR INSOMNIA (PACKAGE IN TRAY), 17... Start Date: 06/02/21 Status: Orderednicotine 14 mg/24 hr transdermal film, extended release 1 patch, Topically, Daily, for 28 days, # 28 patch, 0 Refills, Acute 09/05/21 15:22:00 EDT, 08/08/2214:22:00 EST, Patch, [facility]/pharmacy #[id number], Partial fill upon patient request if the prescription is for a schedule II opioid drug., 1 patch Topically Da... Start Date: 08/08/21 Stop Date: 09/05/21 Status: Orderednicotine 21 mg/24 hr transdermal film, extended release 1 patch, Topically, Daily, for 28 days, # 28 patch, 0 Refills, Acute 09/05/21 15:29:00 EDT, 08/08/2214:29:00 EST, Patch, [facility]/pharmacy #[id number], Partial fill upon patient request if the prescription is for a schedule II opioid drug., 1 patch Topically Da... Start Date: 08/08/21 Stop Date: 09/05/21 Status: OrderedNicotine 7 mg/24 hour patch 1 patch, Topically, Daily, for 28 days, # 28 patch, 0 Refills, Acute 09/05/21 15:22:00 EDT, 08/08/2214:22:00 EST, Patch, [facility]/pharmacy #[id number], Partial fill upon patient request if the prescription is for a schedule II opioid drug., 1 patch Topically Da... Start Date: 08/08/21 Stop Date: 09/05/21 Status: OrderedOXcarbazepine 150 mg oral tablet 150 mg, 1, tablet, By Mouth, 2 times a day, Refills 0, Maintenance, 02/27/21 14:40:00 EDT, ; Start Date: 02/27/21 Status: OrderedOXcarbazepine 300 mg oral tablet 300 mg, 1, tablet, By Mouth, 2 times a day, Refills 0, Maintenance, 02/27/21 14:40:00 EDT, ; Start Date: 02/27/21 Status: OrderedOXcarbazepine 600 mg oral tablet 1 tablet = 600 mg, By Mouth, 2 times a day, Maintenance, 08/21/21 15:10:00 EST, Tablet, ; Start Date: 08/21/21 Status: Orderedpantoprazole 40 mg oral delayed release [...] 1 Refills, Maintenance, 10/06/19 15:57:00 EDT, [facility], [facility], [facility], cm, 08/24/19 14:14:00 EDT, Height, 81.2, kg, 02/04/19 1:40:00 EDT, Dry Weight Start Date: 10/06/19 Status: Orderedsertraline 50 mg oral tablet 1 tablet, By Mouth, Daily, TAKE ALONG WITH A 100MG TABLET to equal 150mg daily, # 90 tablet, 1 Refills, Maintenance, 10/06/19 15:57:00 EDT, [facility], 175, cm, 08/24/19 14:14:00 [...] 02/04/19 1:40:00 EDT,... Start Date: 03/11/20 Status: MfmxqroVop-A-Zkuu oral tablet 1 tablet, By Mouth, Daily, # 90 tablet, 9 Refills, [facility], 28, TAKE 1 TABLET BY MOUTH ONCE A DAY, 174, cm, 07/14/21 8:16:00 EST, Height, 81, kg, 02/27/21 14:06:00 EDT, Dry Weight Start Date: 07/22/21 Status: Orderedtranexamic acid 650 mg oral tablet 1 tablet = 650 mg, By Mouth, Daily, # 21 tablet, 0 Refills, Maintenance, 10/22/20 17:52:00 EDT, Tablet, [facility]/pharmacy #[id number], Partial fill upon patient request if the prescription is for a schedule II opioid drug., 178, cm, 10/22/20 13:17:00 EDT, Height... Start Date: 10/22/20 Status: OrderedtraZODone 50 mg oral tablet See Instructions, TAKE 1 TO 2 TABLETS BY MOUTH AT BEDTIME (ONE DOSE IN VIAL), # 60 tablet, Refills 0, Instructions Replace Required Details, Route to Pharmacy Electronically, [facility], 174, cm, 08/14/21 14:21:00 EST, Height, 81, kg, 02/27/21... Start Date: 08/18/21 Status: Orderedvarenicline 0.5 mg tablet 1 tablet = 0.5 mg, By Mouth, 2 times a day, Days 1 to 3: 0.5 mg once daily. Days 4 to 7: 0.5 mg twice daily. then start new script for 1 mg twice a day, # 11 tablet, 0 Refills, Maintenance, 08/08/21 15:24:00 EST, Tablet, [facility]/pharmacy #[id number], Partial f... Start Date: 08/08/21 Status: Orderedvarenicline 1mg tablet 1 tablet = 1 mg, By Mouth, 2 times a day, to start after 0.5 mg tabs, # 56 tablet, 0 Refills, Maintenance, 08/08/21 15:26:00 EST, Tablet, [facility]/pharmacy #[id number], Partial fill upon patient request if the prescription is for a schedule II opioid drug., 174,... Start Date: 08/08/21 Status: OrderedVitamin B1 100 mg oral tablet 1, tablet, By Mouth, Daily, # 90 tablet, Refills 1, Route to Pharmacy Electronically, [facility], 174, cm, 02/27/21 15:17:00 EDT, Height, [...] Active Vitamin D insufficiency(Confirmed) 08/16/12 Active 1refer [id number] HEP C,b; immune HEP A,3r/o eorfolhatbvfvzmi9utfxti4tmsqiora counseling6? [id number] RF ANCA,normal immunofixation,8lumbar puncture November 2011,neg lymenormal IGA neg SSA ,SSBnormal methylmalonic acid homocyseine9 legally blind;[id number] echo November 2014 Diagnosis Diagnosis Type Effective Dates Health Status Clinical In formant Service Fall in home Discharge 08/14/21 Diagnosis MCCLELLAN (headache) Discharge 08/14/21 Diagnosis Low back pain Discharge 08/14/21 Diagnosis Vital Signs Most recent to oldest [Reference Range]: 1 Height 174 cm (08/14/21 2:21 PM) Weight 82.5 kg (08/14/21 2:21 PM) Oxygen Saturation [94-100 %] 98 % (08/14/21 2:21 PM) Pulse Rate [55-90 bpm] 77 bpm (08/14/21 2:21 PM) Body Mass Index [18.5-24.99] 27.25 *H* (08/14/21 2:21 PM) Blood Pressure [90-138/55-84 mm Hg] 113/71 mm Hg (08/14/21 2:21 PM) Temperature [96.8-100.4 DegF] 98.0 DegF (08/14/21 2:21 PM) Mode of Delivery (Oxygen) Room air (08/14/21 2:21 PM) Blood pressure sites Arm, left (08/14/21 2:21 PM) Temperature Route Temporal (08/14/21 2:21 PM) Weight Obtained Via Standing scale (08/14/21 2:21 PM) Social History Social History Type Response Smoking Status 10 or more cigarettes (1/2 p ack or more)/day in last 30 days entered on: 02/04/19 Sex Male
--- OUTSIDE RECORDS SUMMARY | 2022-03-14 03:13 | XMS_ITS | Continuity of Care Document ---
:1975 Author Organization [facility] Address [address] [place] [id number]- Care Team Providers Name Role Phone Jany Baig DO Primary Care Physician Encounter [facility] [place] Date(s): 04/12/20 - 05/29/[address] [id number] Attending Physician: Cristofer Steiner MD Admitting Physician: Cristofer Steiner MD Referring Physician: Cristofer Steiner MD Allergies, Adverse Reactions, Alerts Substance Reaction Severity Status ibuprofen1 Hx of GI Bleed Active aspirin2 Hx GI Bleed Active Tylenol3 Cirrhosis Active NSAIDs Active 1pt advised not to take NSAIDs or Tylenol due to underlying liver disease. Also had GI side effects when took too much aspirin in the past.2pt took too much in the past and had GI side [id number] advised not to take d/t underlying liver [...] 08/02/12 Given 1Admin Note: #22Result Comment: [04/29/2017] [id number] Note: [id number] Admin Note: 3 RDINJ Medications baclofen 10 mg oral tablet 10 mg, 1, tablet, By Mouth, 3 times a day, # 90 tablet, Refills 4, Tot. Refills 4, Maintenance, 02/16/20 17:55:00 EDT, Route to Pharmacy Electronically, [facility], 175, cm, 08/24/19 14:14:00 EDT, Height, 81.2, kg, 02/04/19 1:40:00 EDT, Dry We... Start Date: 02/16/20 Stop Date: 07/15/20 Status: Orderedchantix 1mg tablet 1 tablet, By Mouth, 2 times a day, for 12 week(s), # 56 tablet, 0 Refills, Acute, 05/21/20 12:54:00 EST, [facility], 175, cm, 04/02/20 0:35:00 EDT, Height, 100, kg, 04/02/20 0:35:00 EDT, Dry Weight Start Date: 05/21/20 Stop Date: 08/13/20 Status: OrderedCo Q-10 100 mg oral capsule 1 capsule, By Mouth, 4 times a day, # 120 capsule, 11 Refills, Maintenance, 11/21/19 10:36:00 EDT, [facility]/pharmacy #[id number], 175, cm, 08/24/19 14:14:00 EDT, Height, 81.2, kg, 02/04/19 1:40:00 EDT, Dry Weight Start Date: 11/21/19 Stop Date: 11/15/20 Status: OrderedEngerix-B 20 mcg/mL intramuscular suspension = 20 mcg, Intramuscular, Every 30 days, rpt at 1 and 6 months, # 1 mL, 2 Refills, Maintenance, 11/02/19 9:02:00 EDT, Suspension, [facility]/pharmacy #[id number], 175, cm, 08/24/19 14:14:00 EDT, Height, 81.2, kg, 02/04/19 1:40:00 EDT, Dry Weight Start Date: 11/02/19 Status: Orderedfluticasone 50 mcg/inh nasal spray See Instructions, SPRAY 1 SPRAY INTO EACH NOSTRIL TWICE A DAY, # 16 Gm, 5 Refills, 01/26/20 9:52:00 EDT, [facility], 30, SPRAY 1 SPRAY INTO EACH NOSTRIL TWICE A DAY, 175, cm, 08/24/19 14:14:00 EDT, Height, 81.2, kg, 02/04/19 1:40:00 EDT, Dry W... Start Date: 01/26/20 Status: Orderedgabapentin 600 mg oral tablet 1 tablet, By Mouth, 4 times a day, # 120 tablet, 2 Refills, Maintenance, 05/21/20 12:54:00 EST, [facility], 175, cm, 04/02/20 0:35:00 EDT, Height, 100, kg, 04/02/20 0:35:00 EDT, Dry Weight Start Date: 05/21/20 Status: OrderedhydrOXYzine hydrochloride 25 mg oral tablet 1 TO 2 TABLETS, By Mouth, 3 times a day, PRN NEEDED FOR ANXIETY (VIAL), # 60 tablet, 1 Refills, Acute, 05/21/20 12:54:00 EST, [facility], 175, cm, 04/02/20 0:35:00 [...] 16:37:00 EDT, 12/01/19 16:37:00 EDT, Syrup, [facility], re sent from 10/04/17, [...] Refills, Maintenance, 10/06/19 16:16:00 EDT, Tablet, [facility], 175, [...] Gm, 0 Refills, Maintenance, 04/16/20 14:45:00 EST, [facility]/pharmacy #[id number], 8, APPLY TOPICALLY THREE TIMES DAILY [...] 5 Refills, Maintenance, 03/11/20 14:37:00 EDT, Tablet, [facility]/pharmacy #[id number], 175, cm, 08/24/19 14:14:00 EDT, Height, 81.2, kg, 02/04/19 1:40:00 EDT,... Start Date: 03/11/20 Status: GumbbewLjk-T-Rqto oral tablet 1 tablet, By Mouth, Daily, # 90 tablet, 1 Refills, Maintenance, 05/21/20 9:35:00 EST, [facility], 1 tablet By Mouth [...] 09/27/19 8:51:00 EDT, Route to Pharmacy Electronically, [facility], 175, cm, 08/24/19 14:14:00 EDT, Height, 81.2, kg, 02/04/19 1:40:00 EDT, Dry Weight Start Date: 09/27/19 Status: OrderedXifaxan 550 mg oral tablet 1 tablet, By Mouth, 2 times a day, # 60 tablet, 0 Refills, Maintenance, 04/16/20 14:45:00 EST, [facility]/pharmacy #[id number], 175, cm, 04/02/20 0:35:00 EDT, [...] Active Vitamin D insufficiency(Confirmed) 08/16/12 Active 1refer [id number] HEP C,b; immune HEP A,3r/o sffumtjegsayhvua0izxkws5hkvgqbba counseling6? [id number] RF ANCA,normal immunofixation,8lumbar puncture November 2011,neg lymenormal IGA neg SSA ,SSBnormal methylmalonic acid homocyseine9 legally blind;nvljvqfpdh27gohcia echo November 2014 Social History Social History Type Response Smoking Status 10 or more cigarettes (1/2 p ack or more)/day in last 30 days entered on: 02/04/19 Sex
--- OUTSIDE RECORDS SUMMARY | 2022-03-14 03:13 | XMS_ITS | Continuity of Care Document ---
:1975 Author Organization [facility] Address [address] [place] [address]- Care Team Providers Name Role Phone Jany Baig DO Primary Care Physician Encounter [facility] Date(s): 10/27/21 - 11/03/21 [facility] [address] [place] [address]- Attending Physician: Jany Baig DO Allergies, Adverse [...] in the past and had GI side [id number] advised not to take d/t underlying liver [...] acel (oldterm) 08/02/12 Given 1Result Comment: [04/29/2017] [id number] Note: [id number] Note: 3 [id number] Note: #2 Medications amLODIPine 5 mg oral tablet 5 mg, 1, tablet, By Mouth, Daily, # 30 tablet, Refills 5, Tot. Refills 5, Maintenance, 10/21/21 10:15:00 EDT, Route to Pharmacy Electronically, [facility], Partial fill upon patient request if the prescription is for a schedule II opioid drug.... Start Date: 10/21/21 Status: OrderedCo Q-10 100 mg oral capsule 1 capsule, By Mouth, 4 times a day, # 120 capsule, 6 Refills, [facility], 174, cm, 02/27/21 15:17:00 EDT, Height, 81, kg, 02/27/21 14:06:00 EDT, Dry Weight Start Date: 07/08/21 Status: Orderedfluticasone 50 mcg/inh nasal spray See Instructions, USE 1 SPRAY INTO EACH NOSTRIL TWICE A DAY, # 16 Gm, 5 Refills, [facility],30, USE 1 SPRAY INTO EACH NOSTRIL TWICE A DAY, 174, cm, 07/14/21 8:16:00 EST, Height, 81, kg, 02/27/21 14:06:00 EDT, Dry Weight Start Date: 08/04/21 Status: Orderedfolic acid 1 mg oral tablet 1 mg, 1, tablet, By Mouth, Daily, # 90 tablet, Refills 4, Tot. Refills 4, Maintenance, 10/27/21 10:40:00 EDT, Route to Pharmacy Electronically, [facility], Partial fill upon patient request if the prescription is for a schedule II opioid drug.... Start Date: 10/27/21 Stop Date: 01/20/23 Status: Orderedgabapentin 300 mg oral capsule 300 mg, 1, capsule, By Mouth, Daily at bedtime, note dose change, # 90 capsule, Refills 4, Tot. Refills 4, Maintenance, 10/27/21 10:39:00 EDT, Route to Pharmacy Electronically, [facility], Partial fill upon patient request if the prescription... Start Date: 10/27/21 Stop Date: 01/20/23 Status: OrderedhydrOXYzine hydrochloride 25 mg oral tablet 1 TO 2 TABLETS, By Mouth, 3 times a day, PRN NEEDED FOR ANXIETY (VIAL), # 60 tablet, 0 Refills, [facility], 175, cm, 10/27/21 10:11:00 EDT, Height, 87, kg, 09/27/21 21:30:00 EDT, Dry Weight Start Date: 10/29/21 Status: Orderedlactulose 10 gm/15 ml oral syrup See Instructions, TAKE 30ML BY MOUTH THREE TIMES DAILY NEEDED TO ACHEIVE 3-4 BOWL MOVEMENTS PER DAY, # 3,000 mL, 10 Refills, [facility], 30, TAKE 30ML BY MOUTH THREE TIMES DAILY NEEDED TOACHEIVE 3-4 BOWL MOVEMENTS PER DAY, 174, cm, 02/12... Start Date: 07/02/21 Status: OrderedLasix 40 mg oral tablet 40 mg, 1, tablet, By Mouth, 2 times a day, # 60 tablet, Refills 1, Tot. Refills 1, Maintenance, 10/21/21 10:15:00 EDT, Route to Pharmacy Electronically, [facility], Partial fill upon patient request if [...] a day, # 60 tablet, 0 Refills, [facility], 175, cm, 10/27/21 10:11:00 EDT, Height, 87, kg, 09/27/21 21:30:00 EDT, Dry Weight Start Date: 10/29/21 Status: OrderedMelatonin 3 mg oral tablet 1 tablet, By Mouth, Daily at bedtime, PRN NEEDED FOR INSOMNIA (PACKAGE IN TRAY), # 60 tablet, 5 Refills, Maintenance, 06/02/21 16:17:00 EST, [facility], 28, 1 tablet By [...] 10/22/21 11:42:00 EDT, Route to Pharmacy Electronically, [facility], Partialfill upon patient request if the prescription is... Start Date: 10/22/21 Stop Date: 01/15/23 Status: OrderedrifAXIMin 550 mg oral tablet 1 tablet = 550 mg, By Mouth, 2 times a day, please contact GI for refills, # 60 tablet, 0 Refills, Maintenance, 10/21/21 10:15:00 EDT, Tablet, [facility], Partial fill upon patient request if the prescription is for a schedule II opioid drug.,... Start Date: 10/21/21 Stop Date: 11/20/21 Status: PsibjcpBmt-A-Hokt oral tablet 1 tablet, By Mouth, Daily, # 90 tablet, 9 Refills, [facility], 28, TAKE 1 TABLET [...] Details, Route to Pharmacy Electronically, [facility], 175, cm, 10/27/21 10:11:00 EDT, Height, 87, kg, 09/27/21... Start Date: 10/29/21 Status: OrderedVitamin B1 100 mg oral tablet 1, tablet, By Mouth, Daily, # 90 tablet, Refills 1, Route to Pharmacy Electronically, [facility], 174, cm, 02/27/21 15:17:00 [...] Active Vitamin D insufficiency(Confirmed) 08/16/12 Active 1refer [id number] HEP C,b; immune HEP A,3r/o erypfmukhsdurufe0xgvswd6cwppevez counseling6? bzsamje3nqz RF ANCA,normal immunofixation,8lumbar puncture November 2011,neg lymenormal IGA neg SSA ,SSBnormal methylmalonic acid homocyseine9 legally blind;idejutwphi54cudxqg echo November 2014 Vital Signs Most recent to oldest [Reference Range]: 1 Height 175 cm (10/27/21 10:11 AM) Weight 78.4 kg (10/27/21 10:11 AM) Oxygen Saturation [94-100 %] 99 % (10/27/21 10:11 AM) Pulse Rate [55-90 bpm] 93 bpm *H* (10/27/21 10:11 AM) Body Mass Index [18.5-24.99] 25.6 *H* (10/27/21 10:11 AM) Blood Pressure [90-138/55-84 mm Hg] 130/80 mm Hg (10/27/21 10:11 AM) Social History Social History Type Response Smoking Status 10 or more cigarettes (1/2 p ack or more)/day in last 30 days entered on: 02/04/19 Sex
--- OUTSIDE RECORDS SUMMARY | 2022-03-14 03:13 | XMS_ITS | Continuity of Care Document ---
:1975 Author Organization [facility] Address [address] [place] [id number]- Care Team Providers Name Role Phone Jany Baig DO Primary Care Physician [place] [facility] [place]s): 03/27/21 - 05/02/[address] [address] Attending Physician: Tash Conde MD Admitting Physician: Tash Conde MD Referring Physician: Tash Conde MD Allergies, Adverse Reactions, Alerts Substance Reaction Severity Status ibuprofen1 Hx of GI Bleed Active aspirin2 Hx GI Bleed Active Tylenol3 Cirrhosis Active NSAIDs Active 1pt advised not to take NSAIDs or Tylenol due to underlying liver disease. Also had GI side effects when took too much aspirin in the past.2pt took too much in the past and had GI side [id number] advised not to take d/t underlying liver [...] Vaccine (old term) 08/09/12 Given tetanus/diphtheria/pertussis, acel(Tdap) 1/9/19 Given tetanus/diphtheria/pertussis, acel(Tdap) 11/25/15 Given pneumococcal 23-valent vaccine 03/16/15 Given Pneumococcal Vaccine (oldterm) 08/02/12 Given Tet/diphth/pertussis, acel (oldterm) 08/02/12 Given 1Result Comment: [04/29/2017] [id number] Note: [id number] Note: 3 [id number] Note: #2 Medications baclofen 10 mg oral tablet 1, tablet, By Mouth, 3 times a day, # 90 tablet, Refills 0, Route to Pharmacy Electronically, [facility], 174, cm, 02/27/21 15:17:00 EDT, Height, 81, kg, 02/27/21 14:06:00 EDT, Dry Weight Start Date: 04/16/21 Status: Orderedchantix 1mg tablet 1 tablet, By Mouth, 2 times a day, # 56 tablet, 0 Refills, Acute, 11/22/20 16:13:00 EDT, [facility], 178, cm, 11/12/20 15:32:00 EDT, Height, 84.9, kg, 08/31/20 1:07:00 EDT, Dry Weight Start Date: 11/22/20 Status: OrderedCo Q-10 100 mg oral capsule See Instructions, TAKE 1 CAPSULE BY MOUTH FOUR TIMES DAILY, # 120 capsule, 7 Refills, Maintenance, [facility], 178, cm, 10/22/20 13:17:00 EDT, Height, 84.9, kg, 08/31/20 1:07:00 EDT, Dry Weight Start Date: 11/01/20 Status: OrderedCo Q-10 100 mg oral capsule 1 capsule, By Mouth, 4 times a day, # 120 capsule, 11 Refills, Maintenance, 11/21/19 10:36:00 EDT, [facility]/pharmacy #[id number], 175, cm, 08/24/19 14:14:00 EDT, Height, 81.2, kg, 02/04/19 1:40:00 EDT, Dry Weight Start Date: 11/21/19 Stop Date: 11/15/20 Status: Orderedfluticasone 50 mcg/inh nasal spray See Instructions, USE 1 SPRAY INTO EACH NOSTRIL TWICE A DAY, # 16 Gm, 5 Refills, Maintenance, [facility], 30, USE 1 SPRAY INTO EACH NOSTRIL TWICE A DAY, 178, cm, 01/07/21 17:59:00 EDT, Height, 81.4, kg, 12/03/20 13:52:00 EDT, Dry Weight Start Date: 01/17/21 Status: Orderedgabapentin 600 mg oral tablet 1 tablet, By Mouth, 4 times a day, # 120 tablet, 0 Refills, [facility], 174, cm, 02/27/21 15:17:00 EDT, Height, 81, kg, 02/27/21 14:06:00 EDT, Dry Weight Start Date: 04/16/21 Status: OrderedhydrOXYzine hydrochloride 25 mg oral tablet 1 TO 2 TABLETS, By Mouth, 3 times a day, PRN NEEDED FOR ANXIETY (VIAL), # 60 tablet, 2 Refills, [facility], 174, cm, 02/11/21 12:09:00 EDT, Height, 86.6, kg, 02/06/21 14:20:00 EDT, Dry Weight Start Date: 02/19/21 Status: Orderedmelatonin 3 mg oral tablet 1 tablet = 3 mg, By Mouth, Daily at bedtime, PRN for insomnia, # 60 tablet, 4 Refills, Maintenance, 07/18/20 17:30:00 EST, Tablet, [facility], 175, cm, 04/02/20 0:35:00 [...] Refills, Maintenance, 10/06/19 15:57:00 EDT, Tablet, [facility], 175, cm, 08/24/19 14:14:00 EDT, Height, 81.2, kg, 02/04/19 1:40:00 EDT, Dry Weight Start Date: 10/06/19 Status: Orderedsertraline 50 mg oral tablet 1 tablet, By Mouth, Daily, TAKE ALONG WITH A 100MG TABLET to equal 150mg daily, # 90 tablet, 1 Refills, Maintenance, 10/06/19 15:57:00 EDT, [facility], 175, cm, 08/24/19 14:14:00 EDT, Height, 81.2, kg, 02/04/19 1:40:00 EDT, Dry Weight Start Date: 10/06/19 Status: Orderedsildenafil 50 mg oral tablet 1 tablet = 50 mg, By Mouth, Daily, PRN erectile dysfunction, 1 hour before sexual activity, # 6 tablet, 5 Refills, Maintenance, 03/11/20 14:37:00 EDT, Tablet, [facility]/pharmacy #[id number], 175, cm, 08/24/19 14:14:00 EDT, Height, 81.2, kg, 02/04/19 1:40:00 EDT,... Start Date: 03/11/20 Status: NmwnjgaPfx-C-Dfmb oral tablet See Instructions, TAKE 1 TABLET BY MOUTH ONCE A DAY, # 30 tablet, 10 Refills, [facility], TAKE 1 TABLET BY MOUTH ONCE A DAY, 175, cm, 04/02/20 0:35:00 EDT, Height, 100, kg, 04/02/20 0:35:00 EDT, Dry Weight Start Date: 07/18/20 Status: Orderedtranexamic acid 650 mg oral tablet 1 tablet = 650 mg, By Mouth, Daily, # 21 tablet, 0 Refills, Maintenance, 10/22/20 17:52:00 EDT, Tablet, [facility]/pharmacy #[id number], Partial fill upon patient request if the prescription is for a schedule II opioid drug., 178, cm, 10/22/20 13:17:00 EDT, Height... Start Date: 10/22/20 Status: OrderedtraZODone 50 mg oral tablet See Instructions, TAKE 1 TO 2 TABLETS BY MOUTH AT BEDTIME (ONE DOSE IN VIAL), # 60 tablet, Refills 5, Instructions Replace Required Details, Route to Pharmacy Electronically, [facility], 174, cm, 02/11/21 12:09:00 EDT, Height, 86.6, kg, ... Start Date: 02/15/21 Status: OrderedVitamin B1 100 mg oral tablet 1, tablet, By Mouth, Daily, # 90 tablet, Refills 2, Tot. Refills 0, Acute, 09/05/20 17:32:00 EDT, Route to Pharmacy Electronically, [facility], 178, cm, 08/31/20 11:25:00 EDT, Height, 84.9, kg,08/31/20 1:07:00 EDT, Dry Weight Start Date: 09/05/20 Status: OrderedXifaxan 550 mg oral tablet 1 tablet, By Mouth, 2 times a day, # 60 tablet, 0 Refills, Maintenance, 04/16/20 14:45:00 EST, [facility]/pharmacy #[id number], 175, cm, 04/02/20 0:35:00 [...] Active Vitamin D insufficiency(Confirmed) 08/16/12 Active 1refer [id number] HEP C,b; immune HEP A,3r/o pbvfoimjiytvmjka2daeito5jwcqqfti counseling6? oravfel2cwf RF ANCA,normal immunofixation,8lumbar puncture November 2011,neg lymenormal IGA neg SSA ,SSBnormal methylmalonic acid homocyseine9 legally blind;yfcsrcshfk36kkcpvx echo November 2014 Social History Social History Type Response Smoking Status 10 or more cigarettes (1/2 p ack or more)/day in last 30 days entered on: 02/04/19 Sex Male
--- OUTSIDE RECORDS SUMMARY | 2022-03-14 03:14 | XMS_ITS | Continuity of Care Document ---
:1975 Author Organization [facility] Address [address] [place] [address]- Care Team Providers Name Role Phone Jany Baig DO Primary Care Physician Encounter [facility] Date(s): 01/29/22 - 02/28/22 [facility] [address] [place] [address]- Allergies, Adverse Reactions, Alerts Substance Reaction Severity Status ibuprofen1 Hx of GI Bleed Active aspirin2 Hx GI Bleed Active Tylenol3 Cirrhosis Active NSAIDs Active 1pt advised not to take NSAIDs or Tylenol due to underlying liver disease. Also had GI side effects when took too much aspirin in the past.2pt took too much in the past and had GI side tjnoast1hw advised not to take d/t underlying liver [...] acel (oldterm) 08/02/12 Given 1Result Comment: [04/29/2017] [id number] Note: [id number] Note: 3 [id number] Note: #2 Medications acetaminophen 500 mg oral tablet 1 tablet, By Mouth, 4 times a day, PRN NEEDED FOR PAIN, MAX 4, PER DAY (VIAL., # 50 tablet, 0 Refills, Maintenance, 02/18/22 12:43:00 EDT, [facility], [facility], cm, 01/06/22 10:34:00 EDT, Height,78.3, kg, 12/26/21 19:05:00 EDT, Dry Weight Start Date: 02/18/22 Status: OrderedamLODIPine 5 mg oral tablet 5 mg, 1, tablet, By Mouth, Daily, # 30 tablet, Refills 5, Tot. Refills 5, Maintenance, 10/21/21 10:15:00 EDT, Route to Pharmacy Electronically, [facility], Partial fill upon patient request if the prescription is for a schedule II opioid drug.... Start Date: 10/21/21 Status: OrderedCo Q-10 100 mg oral capsule 1 capsule, By Mouth, 4 times a day, # 120 capsule, 5 Refills, Maintenance, 02/18/22 12:44:00 EDT, [facility], [facility], cm, 01/06/22 10:34:00 EDT, Height, [...] Gm, 5 Refills, Maintenance, 02/18/22 10:02:00 EDT, [facility], 30, USE 1 SPRAY(S) INTO EACH NOSTRIL TWICE A DAY, 175, cm, 01/06/22 10:34:00 EDT, Height, 78.3, kg, 12/26/21 19... Start Date: 02/18/22 Status: Orderedfolic acid 1 mg oral tablet 1 mg, 1, tablet, By Mouth, Daily, # 90 tablet, Refills 4, Tot. Refills 4, Maintenance, 10/27/21 10:40:00 EDT, Route to Pharmacy Electronically, [facility], Partial fill upon patient request if the prescription is for a schedule II opioid drug.... Start Date: 10/27/21 Stop Date: 01/20/23 Status: Orderedfurosemide 20 mg oral tablet See Instructions, TAKE 1 TABLET BY MOUTH ONCE A DAY, # 30 tablet, Refills 0, Maintenance, 02/18/22 12:43:00 EDT, Instructions Replace Required Details, Route to Pharmacy Electronically, [facility], 175, cm, 01/06/22 10:34:00 EDT, Height, 78.3,... Start Date: 02/18/22 Status: Orderedfurosemide 20 mg oral tablet 1, tablet, By Mouth, Daily, # 30 tablet, Refills 0, Maintenance, 02/18/22 12:44:00 EDT, Route to Pharmacy Electronically, [facility], 175, cm, 01/06/22 10:34:00 EDT, Height, 78.3, kg, 12/26/21 19:05:00 EDT, Dry Weight Start Date: 02/18/22 Status: OrderedhydrOXYzine hydrochloride 25 mg oral tablet 1 TO 2 TABLETS, By Mouth, 3 times a day, PRN NEEDED FOR ANXIETY (VIAL), # 60 tablet, 0 Refills, Maintenance, 02/18/22 12:45:00 EDT, [facility], 175, cm, 01/06/22 10:34:00 EDT, Height, 78.3, kg, 12/26/21 19:05:00 EDT, Dry Weight Start Date: 02/18/22 Status: Orderedlactulose 10 gm/15 ml oral syrup See Instructions, TAKE 30ML BY MOUTH THREE TIMES DAILY NEEDED TO ACHEIVE 3-4 BOWL MOVEMENTS PER DAY, # 3,000 mL, 10 Refills, [facility], 30, TAKE 30ML BY MOUTH THREE TIMES DAILY NEEDED TOACHEIVE 3-4 BOWL MOVEMENTS PER DAY, 174, cm, 02/12... Start Date: 07/02/21 Status: Orderedlidocaine 0.5% topical gel 1 application, Topically, 3 times a day, # 120 Gm, 0 Refills, Acute 12/30/22 17:23:00 EDT, 12/30/21 17:23:00 EDT, Gel, [facility], Partial fill upon patient request if the prescription is for aschedule II opioid drug., 1 application Topically... Start Date: 12/30/21 Stop Date: 12/30/22 Status: OrderedLidoderm 5% film 1 patch, Topically, Daily, remove patches after 12 hours NSAIDS contraindicated High dose tylenol contraindicated, # 30 patch, 5 Refills, Maintenance, 12/26/21 9:33:00 EDT, [facility], Partial fill upon patient request if the prescription i... Start Date: 12/26/21 Status: Orderedmagnesium oxide 400 mg oral tablet 1 tablet, By Mouth, 2 times a day, # 60 tablet, 0 Refills, Maintenance, 02/18/22 12:43:00 EDT, [facility], 175, cm, 01/06/22 10:34:00 EDT, Height, 78.3, kg, 12/26/21 19:05:00 EDT, Dry Weight Start Date: 02/18/22 Status: OrderedMelatonin 3 mg oral tablet 1 tablet, By Mouth, Daily at bedtime, PRN NEEDED FOR INSOMNIA (PACKAGE IN TRAY), # 60 tablet, 5 Refills, Maintenance, 06/02/21 16:17:00 EST, [facility], 28, 1 tablet By Mouth Daily [...] 10/21/21 Stop Date: 04/19/22 Status: OrderedPotassium Chloride (Gpf-Ampl-Tlf M20) 20 mEq oral tablet, extended release See Instructions, TAKE 2 TABLETS BY MOUTH DAILY, # 60 tablet, 0 Refills, Maintenance, 02/18/22 12:43:00 EDT, [facility], 175, cm, 01/06/22 10:34:00 EDT, Height, 78.3, kg, 12/26/21 19:05:00 EDT,Dry Weight Start Date: 02/18/22 Status: Orderedpyridoxine 50 mg oral tablet 50 mg, 1, tablet, By Mouth, Daily, for 90 days, # 90 tablet, Refills 4, Tot. Refills 4, Acute 01/15/23 11:42:00 EDT, 10/22/21 11:42:00 EDT, Route to Pharmacy Electronically, [facility], Partialfill upon patient request if the prescription is... Start Date: 10/22/21 Stop Date: 01/15/23 Status: OrderedR aircast ankle-stirrup support brace R aircast ankle-stirrup support brace, See Instructions, # 1 each, Refills 0, Tot. Refills 0, Maintenance, Dx: R inversion ankle sprain s93.409a, 01/06/22 12:31:00 EDT, Supply Start Date: 01/06/22 Status: BilrfjgEpw-M-Dibh oral tablet 1 tablet, By Mouth, Daily, # 90 tablet, 9 Refills, [facility], 28, TAKE 1 TABLET BY [...] [facility], 175, cm, 01/06/22 10:34:00 EDT, Height, 78.3, kg, ... Start Date: 01/30/22 Status: OrderedtraZODone 50 mg oral tablet See Instructions, TAKE 2-3 TABLETS BY MOUTH AT BEDTIME (ONE DOSE IN VIAL), # 90 tablet, Refills 5, Tot. Refills 5, Maintenance, 12/26/21 9:21:00 EDT, Instructions Replace Required Details, Route to Pharmacy Electronically, [facility], 170, cm,... Start Date: 12/26/21 Status: OrderedVitamin B1 100 mg oral tablet 1, tablet, By Mouth, Daily, # 90 tablet, Refills 0, Route to Pharmacy Electronically, [facility], 170, cm, 11/12/21 10:02:00 EDT, Height, 78, kg, 11/04/21 12:03:00 EDT, Dry Weight Start Date: 12/24/21 Status: OrderedXifaxan 550 mg oral tablet 1 tablet, By Mouth, 2 times a day, # 60 tablet, 2 Refills, [facility], 175, cm, 01/06/22 10:34:00 EDT, [...] Active Vitamin D insufficiency(Confirmed) 08/16/12 Active 1refer [id number] HEP C,b; immune HEP A,3r/o lomgorovzaorewpi0uvggwl2keaqxyni counseling6? mtrwvlt6hjy RF ANCA,normal immunofixation,8lumbar puncture November 2011,neg lymenormal IGA neg SSA ,SSBnormal methylmalonic acid homocyseine9 legally blind;[id number] echo November 2014 Social History Social History Type Response Smoking Status 10 or more cigarettes (1/2 p ack or more)/day in last 30 days entered on: 02/04/19 Sex Care Team PersonnelName: Jany Baig DO Address: [address] [place] [address] [facility] [place], [place] [address]
--- OUTSIDE RECORDS SUMMARY | 2022-03-14 03:14 | XMS_ITS | Continuity of Care Document ---
:1975 Author Organization [facility] Address [address] [place] [id number]- Care Team Providers Name Role Phone Jany Baig DO Primary Care Physician [place] [facility] [place] 04/04/[address] [address]- Encounter Diagnosis Alcohol intoxication (Final) - 04/04/21 Discharge Disposition: A-D/C Home Attending Physician: Morgan Lamar DO Admitting Physician: Morgan Lamar DO Referring Physician: Not on Staff, Referring [...] in the past and had GI side [id number] advised not to take d/t underlying liver [...] acel (oldterm) 08/02/12 Given 1Result Comment: [04/29/2017] [id number] Note: [id number] Note: 3 [id number] Note: #2 Medications baclofen 10 mg oral tablet 1, tablet, By Mouth, 3 times a day, # 90 tablet, Refills 0, Route to Pharmacy Electronically, [facility], 174, cm, 02/27/21 15:17:00 EDT, [...] [facility], 174, cm, 02/27/21 15:17:00 EDT, [...] 02/04/19 1:40:00 EDT,... Start Date: 03/11/20 Status: AwtxpouIax-U-Uodw oral tablet See Instructions, TAKE 1 TABLET BY MOUTH ONCE A DAY, # 30 tablet, 10 Refills, Maintenance, [facility], 28, TAKE 1 [...] Replace Required Details, Route to Pharmacy Electronically, [email or web address], 174, cm, 02/11/21 12:09:00 EDT, Height, 86.6, kg, ... Start Date: 02/15/21 Status: OrderedVitamin B1 100 mg oral tablet 1, tablet, By Mouth, Daily, # 90 tablet, Refills 2, Tot. Refills 0, Acute, 09/05/20 17:32:00 EDT, Route to Pharmacy Electronically, [email or web address], 178, cm, 08/31/20 11:25:00 EDT, Height, [...] Active Vitamin D insufficiency(Confirmed) 08/16/12 Active 1refer pfdps1yuh HEP C,b; immune HEP A,3r/o tkspneouisvjpxmb2fvgthh7xtyrawfy counseling6? iestons5qjz RF ANCA,normal immunofixation,8lumbar puncture November 2011,neg lymenormal IGA neg SSA ,SSBnormal methylmalonic acid homocyseine9 legally blind;wjseeidcpa79pdhxwz echo November 2014 Vital Signs Most recent to oldest [Reference Range]: 1 Oxygen Saturation [94-100 %] 98 % (04/04/21 7:49 PM) Pulse Rate [55-90 bpm] 112 bpm *H* (04/04/21 7:49 PM) Blood Pressure [90-138/55-84 mm Hg] 157/89 mm Hg *H* (04/04/21 8:20 PM) Respiratory Rate [16-30 br/min] 18 br/min (04/04/21 7:49 PM) Temperature [96.8-100.4 DegF] 98.4 DegF (04/04/21 7:49 PM) Blood pressure sites Arm, left (04/04/21 8:20 PM) Temperature Route Oral (04/04/21 7:49 PM) Social History Social History Type Response Smoking Status 10 or more cigarettes (1/2 p ack or more)/day in last 30 days entered on: 02/04/19 Sex
--- OUTSIDE RECORDS SUMMARY | 2022-03-14 03:14 | XMS_ITS | Continuity of Care Document ---
:1975 Author Organization [facility] Address [address] [place] [address]- Care Team Providers Name Role Phone Jany Baig DO Primary Care Physician [facility]counter [facility] Date(s): 01/07/22 - 02/06/22 [facility] [address] [place] [address]- Allergies, Adverse Reactions, Alerts Substance Reaction Severity Status ibuprofen1 Hx of GI Bleed Active aspirin2 Hx GI Bleed Active Tylenol3 Cirrhosis Active NSAIDs Active 1pt advised not to take NSAIDs or Tylenol due to underlying liver disease. Also had GI side effects when took too much aspirin in the past.2pt took too much in the past and had GI side fevobzf5cs advised not to take d/t underlying liver [...] acel (oldterm) 08/02/12 Given 1Result Comment: [04/29/2017] [id number] Note: [id number] Note: 3 [id number] Note: #2 Medications acetaminophen 500 mg oral tablet 1 tablet, By Mouth, 4 times a day, PRN NEEDED FOR PAIN, MAX 4, PER DAY (VIAL., # 50 tablet, 0 Refills, [facility], 175, cm, 01/06/22 10:34:00 EDT, Height, 78.3, kg, 12/26/21 19:05:00 EDT, Dry Weight Start Date: 01/28/22 Status: OrderedamLODIPine 5 mg oral tablet 5 mg, 1, tablet, By Mouth, Daily, # 30 tablet, Refills 5, Tot. Refills 5, Maintenance, 10/21/21 10:15:00 EDT, [facility], [facility], Partial fill upon patient request if the prescription is for a schedule II opioid drug.... Start Date: 10/21/21 Status: OrderedCo Q-10 100 mg oral capsule 1 capsule, By Mouth, 4 times a day, # 120 capsule, 6 Refills, [facility], 174, cm, 02/27/21 15:17:00 [...] A DAY, # 16 Gm, 5 Refills, [facility],30, USE 1 SPRAY INTO EACH NOSTRIL TWICE A DAY, 174, cm, 07/14/21 8:16:00 EST, Height, 81, kg, 02/27/21 14:06:00 EDT, Dry Weight Start Date: 08/04/21 Status: Orderedfolic acid 1 mg oral tablet 1 mg, 1, tablet, By Mouth, Daily, # 90 tablet, Refills 4, Tot. Refills 4, Maintenance, 10/27/21 10:40:00 EDT, Route to Pharmacy Electronically, [facility], Partial fill upon patient request if the prescription is for a schedule II opioid drug.... Start Date: 10/27/21 Stop Date: 01/20/23 Status: Orderedfurosemide 20 mg oral tablet 1, tablet, By Mouth, Daily, # 30 tablet, Refills 0, Route to Pharmacy Electronically, [facility], 175, cm, 01/06/22 10:34:00 EDT, Height, 78.3, kg, 12/26/21 19:05:00 EDT, Dry Weight Start Date: 01/21/22 Status: OrderedhydrOXYzine hydrochloride 25 mg oral tablet 1 TO 2 TABLETS, By Mouth, 3 times a day, PRN NEEDED FOR ANXIETY (VIAL), # 60 tablet, 0 Refills, [facility], 175, cm, 01/06/22 10:34:00 EDT, Height, 78.3, kg, 12/26/21 19:05:00 EDT, Dry Weight Start Date: 01/28/22 Status: Orderedlactulose 10 gm/15 ml oral syrup See Instructions, TAKE 30ML BY MOUTH THREE TIMES DAILY NEEDED TO ACHEIVE 3-4 BOWL MOVEMENTS PER DAY, # 3,000 mL, 10 Refills, [facility], 30, TAKE 30ML BY MOUTH THREE TIMES DAILY NEEDED TOACHEIVE 3-4 BOWL MOVEMENTS PER DAY, 174, cm, 02/12... Start Date: 07/02/21 Status: Orderedlidocaine 0.5% topical gel 1 application, Topically, 3 times a day, # 120 Gm, 0 Refills, Acute 12/30/22 17:23:00 EDT, 12/30/21 17:23:00 EDT, Gel, [facility], Partial fill upon patient request if the prescription is for aschedule II opioid drug., 1 application Topically... Start Date: 12/30/21 Stop Date: 12/30/22 Status: OrderedLidoderm 5% film 1 patch, Topically, Daily, remove patches after 12 hours NSAIDS contraindicated High dose tylenol contraindicated, # 30 patch, 5 Refills, Maintenance, 12/26/21 9:33:00 EDT, [facility], Partial fill upon patient request if the prescription i... Start Date: 12/26/21 Status: Orderedmagnesium oxide 400 mg oral tablet 1 tablet, By Mouth, 2 times a day, # 60 tablet, 0 Refills, [facility], 175, cm, 01/06/22 10:34:00 EDT, Height, 78.3, kg, 12/26/21 19:05:00 EDT, Dry Weight Start Date: 01/21/22 Status: OrderedMelatonin 3 mg oral tablet 1 tablet, By Mouth, Daily at bedtime, PRN NEEDED FOR INSOMNIA (PACKAGE IN TRAY), # 60 tablet, 5 Refills, Maintenance, 06/02/21 16:17:00 EST, [facility], 28, 1 tablet By [...] Refills, Maintenance, 01/28/22 10:17:00 EDT, ER Tablet, [facility], Partial fill upon patient [...] 10/22/21 11:42:00 EDT, Route to Pharmacy Electronically, [facility], Partialfill upon patient request if the prescription is... Start Date: 10/22/21 Stop Date: 01/15/23 Status: OrderedR aircast ankle-stirrup support brace R aircast ankle-stirrup support brace, See Instructions, # 1 each, Refills 0, Tot. Refills 0, Maintenance, Dx: R inversion ankle sprain s93.409a, 01/06/22 12:31:00 EDT, Supply Start Date: 01/06/22 Status: IdbqfymYcc-L-Rlol oral tablet 1 tablet, By Mouth, Daily, # 90 tablet, 9 Refills, [facility], 28, TAKE 1 TABLET BY MOUTH ONCE A DAY, 174, cm, 07/14/21 8:16:00 EST, Height, 81, kg, 02/27/21 14:06:00 EDT, Dry Weight Start Date: 07/22/21 Status: OrderedtraZODone 50 mg oral tablet See Instructions, TAKE 1 TO 2 TABLETS BY MOUTH AT BEDTIME (ONE DOSE IN VIAL), # 60 tablet, Refills 0, Instructions Replace Required Details, Route to Pharmacy Electronically, [facility], 175, cm, 01/06/22 10:34:00 EDT, Height, 78.3, kg, ... Start Date: 01/30/22 Status: OrderedtraZODone 50 mg oral tablet See Instructions, TAKE 2-3 TABLETS BY MOUTH AT BEDTIME (ONE DOSE IN VIAL), # 90 tablet, Refills 5, Tot. Refills 5, Maintenance, 12/26/21 9:21:00 EDT, Instructions Replace Required Details, Route to Pharmacy Electronically, [facility], 170, cm,... Start Date: 12/26/21 Status: OrderedVitamin B1 100 mg oral tablet 1, tablet, By Mouth, Daily, # 90 tablet, Refills 0, Route to Pharmacy Electronically, [facility], 170, cm, 11/12/21 10:02:00 EDT, Height, 78, kg, 11/04/21 12:03:00 EDT, Dry Weight Start Date: 12/24/21 Status: OrderedXifaxan 550 mg oral tablet 1 tablet, By Mouth, 2 times a day, # 60 tablet, 2 Refills, [facility], 175, cm, 01/06/22 10:34:00 EDT, Height, [...] Active Vitamin D insufficiency(Confirmed) 08/16/12 Active 1refer qvsay8jaw HEP C,b; immune HEP A,3r/o cxepembzbqduplzc0vsqimk7wbhjpodv counseling6? ugdgnka3egi RF ANCA,normal immunofixation,8lumbar puncture November 2011,neg lymenormal IGA neg SSA ,SSBnormal methylmalonic acid homocyseine9 legally blind;htmhyuxekc42vjikou echo November 2014 Social History Social History Type Response Smoking Status 10 or more cigarettes (1/2 p ack or more)/day in last 30 days entered on: 02/04/19 Sex Care Team PersonnelName: Jany Baig DO Address: [address] [place] [address] Adult & Pediatric Medicine [place], [place] [address]
--- OUTSIDE RECORDS SUMMARY | 2022-03-14 03:14 | XMS_ITS | Continuity of Care Document ---
:1975 Author Organization [facility] Address [address] [place] [address]- Care Team Providers Name Role Phone Jany Baig DO Primary Care Physician [place] [facility] [place] 01/06/22 - 01/13/22 [facility] [address] [place], [place] [address] Attending Physician: Jany Baig DO Allergies, Adverse [...] in the past and had GI side [id number] advised not to take d/t underlying liver [...] acel (oldterm) 08/02/12 Given 1Result Comment: [04/29/2017] [id number] Note: [id number] Note: 3 [id number] Note: #2 Medications acetaminophen 500 mg oral tablet See Instructions, PRN for pain, 1 tablet By Mouth up to 4 times a day, MAX 2 Gm per day, # 50 tablet, 1 Refills, Maintenance, 12/26/21 9:17:00 EDT, Tablet, [facility], Partial fill upon patientrequest if the prescription is for a schedule II... Start Date: 12/26/21 Status: OrderedamLODIPine 5 mg oral tablet 5 mg, 1, tablet, By Mouth, Daily, # 30 tablet, Refills 5, Tot. Refills 5, Maintenance, 10/21/21 10:15:00 EDT, [facility], Partial fill upon patient request if the prescription is for a schedule II opioid drug.... Start Date: 10/21/21 Status: OrderedCo Q-10 100 mg oral capsule 1 capsule, By Mouth, 4 times a day, # 120 capsule, 6 Refills, [facility], 174, cm, 02/27/21 15:17:00 EDT, Height, [...] A DAY, # 16 Gm, 5 Refills, [facility], USE 1 SPRAY INTO EACH NOSTRIL TWICE A DAY, 174, cm, 07/14/21 8:16:00 EST, Height, 81, kg, 02/27/21 14:06:00 EDT, Dry Weight Start Date: 08/04/21 Status: Orderedfolic acid 1 mg oral tablet 1 mg, 1, tablet, By Mouth, Daily, # 90 tablet, Refills 4, Tot. Refills 4, Maintenance, 10/27/21 10:40:00 EDT, Route to Pharmacy Electronically, [facility], Partial fill upon patient request if the prescription is for a schedule II opioid drug.... Start Date: 10/27/21 Stop Date: 01/20/23 Status: Orderedfurosemide 20 mg oral tablet 20 mg, 1, tablet, By Mouth, Daily, # 30 tablet, Refills 1, Tot. Refills 1, Maintenance, 01/07/22 10:40:00 EDT, Route to Pharmacy Electronically, [facility], Partial fill upon patient request ifthe prescription is for a schedule II opioid drug... Start Date: 01/07/22 Status: OrderedhydrOXYzine hydrochloride 25 mg oral tablet 1 TO 2 TABLETS, By Mouth, 3 times a day, PRN NEEDED FOR ANXIETY (VIAL), # 60 tablet, 0 Refills, [facility], 170, cm, 11/12/21 10:02:00 EDT, Height, 78, kg, 11/04/21 12:03:00 EDT, Dry Weight Start Date: 12/24/21 Status: Orderedlactulose 10 gm/15 ml oral syrup See Instructions, TAKE 30ML BY MOUTH THREE TIMES DAILY NEEDED TO ACHEIVE 3-4 BOWL MOVEMENTS PER DAY, # 3,000 mL, 10 Refills, [facility], 30, TAKE 30ML BY MOUTH THREE TIMES DAILY NEEDED TOACHEIVE 3-4 BOWL MOVEMENTS PER DAY, 174, cm, 02/12... Start Date: 07/02/21 Status: Orderedlidocaine 0.5% topical gel 1 application, Topically, 3 times a day, # 120 Gm, 0 Refills, Acute 12/30/22 17:23:00 EDT, 12/30/21 17:23:00 EDT, Gel, [facility], Partial fill upon patient request if the prescription is for aschedule II opioid drug., 1 application Topically... Start Date: 12/30/21 Stop Date: 12/30/22 Status: OrderedLidoderm 5% film 1 patch, Topically, Daily, remove patches after 12 hours NSAIDS contraindicated High dose tylenol contraindicated, # 30 patch, 5 Refills, Maintenance, 12/26/21 9:33:00 EDT, [facility], Partial fill upon patient request if the prescription i... Start Date: 12/26/21 Status: Orderedmagnesium oxide 400 mg oral tablet 1 tablet, By Mouth, 2 times a day, # 60 tablet, 1 Refills, [facility], 170, cm, 11/12/21 10:02:00 EDT, Height, 78, kg, 11/04/21 12:03:00 EDT, Dry Weight Start Date: 11/26/21 Status: OrderedMelatonin 3 mg oral tablet 1 tablet, By Mouth, Daily at bedtime, PRN NEEDED FOR INSOMNIA (PACKAGE IN TRAY), # 60 tablet, 5 Refills, Maintenance, 06/02/21 16:17:00 EST, [facility], 28, 1 tablet By Mouth [...] Refills, Maintenance, 12/29/21 15:50:00 EDT, ER Tablet, [id number], Partial fill upon patient request if the prescription is for a schedule IIopioid drug., 175, cm, 12/26/21 19:05:00 EDT, Hei... Start Date: 12/29/21 Stop Date: 02/27/22 Status: Orderedpyridoxine 50 mg oral tablet 50 mg, 1, tablet, By Mouth, Daily, for 90 days, # 90 tablet, Refills 4, Tot. Refills 4, Acute 01/15/23 11:42:00 EDT, 10/22/21 11:42:00 EDT, Route to Pharmacy Electronically, [facility], Partialfill upon patient request if the prescription is... Start Date: 10/22/21 Stop Date: 01/15/23 Status: OrderedR aircast ankle-stirrup support brace R aircast ankle-stirrup support brace, See Instructions, # 1 each, Refills 0, Tot. Refills 0, Maintenance, Dx: R inversion ankle sprain s93.409a, 01/06/22 12:31:00 EDT, Supply Start Date: 01/06/22 Status: DochxpjPgq-N-Twaf oral tablet 1 tablet, By Mouth, Daily, # 90 tablet, 9 Refills, [facility], 28, TAKE 1 TABLET BY [...] Required Details, Route to Pharmacy Electronically, [facility], 170, cm,... Start Date: 12/26/21 Status: OrderedVitamin B1 100 mg oral tablet 1, tablet, By Mouth, Daily, # 90 tablet, Refills 0, Route to Pharmacy Electronically, [facility], 170, cm, 11/12/21 10:02:00 EDT, Height, 78, kg, 11/04/21 12:03:00 EDT, Dry Weight Start Date: 12/24/21 Status: OrderedXifaxan 550 mg oral tablet 1 tablet, By Mouth, 2 times a day, # 60 tablet, 0 Refills, [facility], 170, cm, 11/12/21 10:02:00 EDT, Height, 78, kg, 11/04/21 12:03:00 EDT, Dry Weight Start Date: 12/24/21 Status: Ordered Problem List Condition Effective Dates [...] Active Vitamin D insufficiency(Confirmed) 08/16/12 Active 1refer [id number] HEP C,b; immune HEP A,3r/o clrtwoxnklaagpzp8ybsrde1sodqtgyy counseling6? [id number] RF ANCA,normal immunofixation,8lumbar puncture November 2011,neg lymenormal IGA neg SSA ,SSBnormal methylmalonic acid homocyseine9 legally blind;[id number] echo November 2014 Vital Signs Most recent to oldest [Reference Range]: 1 Height 175 cm (01/06/22 10:34 AM) Weight 84.1 kg (01/06/22 10:34 AM) Oxygen Saturation [94-100 %] 97 % (01/06/22 10:34 AM) Pulse Rate [55-90 bpm] 80 bpm (01/06/22 10:34 AM) Body Mass Index [18.5-24.99] 27.46 *H* (01/06/22 10:34 AM) Blood Pressure [90-138/55-84 mm Hg] 120/80 mm Hg (01/06/22 10:34 AM) Mode of Delivery (Oxygen) Room air (01/06/22 10:34 AM) Blood pressure sites Arm, left (01/06/22 10:34 AM) Weight Obtained Via Standing scale (01/06/22 10:34 AM) Social History Social History Type Response Smoking Status 10 or more cigarettes (1/2 p ack or more)/day in last 30 days entered on: 02/04/19 Sex
--- OUTSIDE RECORDS SUMMARY | 2022-03-14 03:14 | XMS_ITS | Continuity of Care Document ---
:[address] [facility] Address [address] [place] [address]- Care Team Providers Name Role Phone Jany Baig DO Primary Care Physician Encounter [facility] Date(s): 01/01/22 - 01/31/22 [facility] [address] [place] [address]- Allergies, Adverse Reactions, Alerts Substance Reaction Severity Status ibuprofen1 Hx of GI Bleed Active aspirin2 Hx GI Bleed Active Tylenol3 Cirrhosis Active NSAIDs Active 1pt advised not to take NSAIDs or Tylenol due to underlying liver disease. Also had GI side effects when took too much aspirin in the past.2pt took too much in the past and had GI side [id number] advised not to take d/t underlying liver [...] acel (oldterm) 08/02/12 Given 1Result Comment: [04/29/2017] [id number] Note: [id number] Note: 3 [id number] Note: #2 Medications acetaminophen 500 mg oral tablet 1 tablet, By Mouth, 4 times a day, PRN NEEDED FOR PAIN, MAX 4, PER DAY (VIAL., # 50 tablet, 0 Refills, [facility], 175, cm, 01/06/22 10:34:00 EDT, Height, 78.3, kg, 12/26/21 19:05:00 EDT, Dry Weight Start Date: 01/28/22 Status: OrderedamLODIPine 5 mg oral tablet 5 mg, 1, tablet, By Mouth, Daily, # 30 tablet, Refills 5, Tot. Refills 5, Maintenance, 10/21/21 10:15:00 EDT, [facility], Partial fill upon patient request if the prescription is for a schedule II opioid drug.... Start Date: 10/21/21 Status: OrderedCo Q-10 100 mg oral capsule 1 capsule, By Mouth, 4 times a day, # 120 capsule, 6 Refills, [facility], 174, cm, 02/27/21 15:17:00 EDT, [...] DAY, # 16 Gm, 5 Refills, [facility],30, USE 1 SPRAY INTO EACH NOSTRIL TWICE A DAY, 174, cm, 07/14/21 8:16:00 EST, Height, 81, kg, 02/27/21 14:06:00 EDT, Dry Weight Start Date: 08/04/21 Status: Orderedfolic acid 1 mg oral tablet 1 mg, 1, tablet, By Mouth, Daily, # 90 tablet, Refills 4, Tot. Refills 4, Maintenance, 10/27/21 10:40:00 EDT, Route to Pharmacy Electronically, [facility], Partial fill upon patient request if the prescription is for a schedule II opioid drug.... Start Date: 10/27/21 Stop Date: 01/20/23 Status: Orderedfurosemide 20 mg oral tablet 1, tablet, By Mouth, Daily, # 30 tablet, Refills 0, Route to Pharmacy Electronically, [facility], 175, cm, 01/06/22 10:34:00 EDT, Height, 78.3, kg, 12/26/21 19:05:00 EDT, Dry Weight Start Date: 01/21/22 Status: OrderedhydrOXYzine hydrochloride 25 mg oral tablet 1 TO 2 TABLETS, By Mouth, 3 times a day, PRN NEEDED FOR ANXIETY (VIAL), # 60 tablet, 0 Refills, [facility], 175, cm, 01/06/22 10:34:00 EDT, Height, 78.3, kg, 12/26/21 19:05:00 EDT, Dry Weight Start Date: 01/28/22 Status: Orderedlactulose 10 gm/15 ml oral syrup See Instructions, TAKE 30ML BY MOUTH THREE TIMES DAILY NEEDED TO ACHEIVE 3-4 BOWL MOVEMENTS PER DAY, # 3,000 mL, 10 Refills, [facility], 30, TAKE 30ML BY MOUTH THREE TIMES DAILY NEEDED TOACHEIVE 3-4 BOWL MOVEMENTS PER DAY, 174, cm, 02/12... Start Date: 07/02/21 Status: Orderedlidocaine 0.5% topical gel 1 application, Topically, 3 times a day, # 120 Gm, 0 Refills, Acute 12/30/22 17:23:00 EDT, 12/30/21 17:23:00 EDT, Gel, [facility], Partial fill upon patient request if the prescription is for aschedule II opioid drug., 1 application Topically... Start Date: 12/30/21 Stop Date: 12/30/22 Status: OrderedLidoderm 5% film 1 patch, Topically, Daily, remove patches after 12 hours NSAIDS contraindicated High dose tylenol contraindicated, # 30 patch, 5 Refills, Maintenance, 12/26/21 9:33:00 EDT, [facility], Partial fill upon patient request if the prescription i... Start Date: 12/26/21 Status: Orderedmagnesium oxide 400 mg oral tablet 1 tablet, By Mouth, 2 times a day, # 60 tablet, 0 Refills, [facility], 175, cm, 01/06/22 10:34:00 EDT, Height, 78.3, kg, 12/26/21 19:05:00 EDT, Dry Weight Start Date: 01/21/22 Status: OrderedMelatonin 3 mg oral tablet 1 tablet, By Mouth, Daily at bedtime, PRN NEEDED FOR INSOMNIA (PACKAGE IN TRAY), # 60 tablet, 5 Refills, Maintenance, 06/02/21 16:17:00 EST, [facility], 28, 1 tablet By Mouth [...] Maintenance, 01/28/22 10:17:00 EDT, ER Tablet, [facility], Partial fill upon patient request [...] 11:42:00 EDT, Route to Pharmacy Electronically, [facility], Partialfill upon patient request if the prescription is... Start Date: 10/22/21 Stop Date: 01/15/23 Status: OrderedR aircast ankle-stirrup support brace R aircast ankle-stirrup support brace, See Instructions, # 1 each, Refills 0, Tot. Refills 0, Maintenance, Dx: R inversion ankle sprain s93.409a, 01/06/22 12:31:00 EDT, Supply Start Date: 01/06/22 Status: HvkgtkdJoj-O-Jkju oral tablet 1 tablet, By Mouth, Daily, # 90 tablet, 9 Refills, [facility], 28, TAKE 1 TABLET BY MOUTH ONCE A DAY, 174, cm, 07/14/21 8:16:00 EST, Height, 81, kg, 02/27/21 14:06:00 EDT, Dry Weight Start Date: 07/22/21 Status: OrderedtraZODone 50 mg oral tablet See Instructions, TAKE 1 TO 2 TABLETS BY MOUTH AT BEDTIME (ONE DOSE IN VIAL), # 60 tablet, Refills 0, Instructions Replace Required Details, Route to Pharmacy Electronically, [facility], 175, cm, 01/06/22 10:34:00 EDT, Height, 78.3, kg, ... Start Date: 01/30/22 Status: OrderedtraZODone 50 mg oral tablet See Instructions, TAKE 2-3 TABLETS BY MOUTH AT BEDTIME (ONE DOSE IN VIAL), # 90 tablet, Refills 5, Tot. Refills 5, Maintenance, 12/26/21 9:21:00 EDT, Instructions Replace Required Details, Route to Pharmacy Electronically, [facility], 170, cm,... Start Date: 12/26/21 Status: OrderedVitamin B1 100 mg oral tablet 1, tablet, By Mouth, Daily, # 90 tablet, Refills 0, Route to Pharmacy Electronically, [facility], 170, cm, 11/12/21 10:02:00 EDT, Height, 78, kg, 11/04/21 12:03:00 EDT, Dry Weight Start Date: 12/24/21 Status: OrderedXifaxan 550 mg oral tablet 1 tablet, By Mouth, 2 times a day, # 60 tablet, 2 Refills, [facility], 175, cm, 01/06/22 10:34:00 EDT, [...] Active Vitamin D insufficiency(Confirmed) 08/16/12 Active 1refer [id number] HEP C,b; immune HEP A,3r/o uvqjlqfvbfouitnn8lyceeh9ukeyargn counseling6? [id number] RF ANCA,normal immunofixation,8lumbar puncture November 2011,neg lymenormal IGA neg SSA ,SSBnormal methylmalonic acid homocyseine9 legally blind;vckurscpap01uqcnex echo November 2014 Social History Social History Type Response Smoking Status 10 or more cigarettes (1/2 p ack or more)/day in last 30 days entered on: 02/04/19 Sex
--- OUTSIDE RECORDS SUMMARY | 2022-03-14 03:14 | XMS_ITS | Continuity of Care Document ---
:1975 Author Organization [facility] Address [address] [place] [address]- Care Team Providers Name Role Phone Jany Baig DO Primary Care Physician Encounter [facility] Date(s): 06/20/19 - 06/27/19 [facility] [address] [place] [address]- [facility] Attending Physician: Jany Baig DO Allergies, Adverse [...] in the past and had GI side [id number] advised not to take d/t underlying liver disease Immunizations Given and Recorded Vaccine Date Status Refusal Reason tetanus/diphtheria/pertussis, acel(Tdap) 06/22/18 Given tetanus/diphtheria/pertussis, acel(Tdap) 11/25/15 Given influenza virus vaccine, inactivated 02/12/18 Recorded influenza virus vaccine, inactivated1 04/29/17 Given influenza virus vaccine, inactivated 04/15/16 Given influenza virus vaccine, inactivated 03/16/15 Given influenza virus vaccine, inactivated 03/12/14 Given influenza virus vaccine, inactivated2 02/28/13 Given pneumococcal 23-valent vaccine 03/16/15 Given hepatitis B adult vaccine3 02/28/13 Given Hepatitis B Vaccine (old term)4 09/08/12 Given Hepatitis B Vaccine (old term) 08/09/12 Given Pneumococcal Vaccine (oldterm) 08/02/12 Given Tet/diphth/pertussis, acel (oldterm) 08/02/12 Given 1Result Comment: [04/29/2017] [id number] Note: [id number] Note: 3 [id number] Note: #2 Medications Co Q-10 100 mg oral capsule 1 capsule, By Mouth, 3 times a day, # 90 capsule, 11 Refills, Maintenance, 06/16/19 12:41:00 EST, [facility], 175, cm, 02/06/19 7:59:00 EDT, Height, 81.2, kg, 02/04/19 1:40:00 EDT, Dry Weight Start Date: 06/16/19 Status: OrderedD 1000 IU oral tablet 1 tablet = 1,000 International_[employer]its, By Mouth, Daily, # 30 tablet, 0 Refills, Maintenance, 06/26/2019:34:00 EST, Tablet Start Date: 06/26/19 Status: Orderedfluticasone 50 mcg/inh nasal spray See Instructions, SPRAY 1 SPRAY INTO EACH NOSTRIL TWICE A DAY, # 16 Gm, 3 Refills, Maintenance, [facility], 30, SPRAY 1 SPRAY INTO EACH NOSTRIL TWICE A DAY, 175, cm, 02/06/19 7:59:00 EDT, Height, 81.2, kg, 02/04/19 1:40:00 EDT, Dry Weight Start Date: 06/16/19 Status: Orderedfolic acid 1 mg oral tablet See Instructions, TAKE 1 TABLET BY MOUTH ONCE A DAY, # 30 tablet, Refills 1, Maintenance, Instructions Replace Required Details, Route to Pharmacy Electronically, [facility], 175, cm, 06/20/19 12:00:00 EST, Height, 81.2, kg, 02/04/19 1:40:00 E... Start Date: 06/20/19 Status: Orderedfolic acid 1 mg oral tablet 1, tablet, By Mouth, Daily, # 30 tablet, Refills 1, Tot. Refills 0, Maintenance, 05/29/19 17:32:04 EST, Instructions Replace Required Details, Route to Pharmacy Electronically, [facility], 175,cm, 02/06/19 7:59:26 EDT, Height, 81.2, kg, 02/04... Start Date: 05/29/19 Status: Orderedgabapentin 600 mg oral tablet 1 tablet = 600 mg, By Mouth, 3 times a day, # 90 tablet, 0 Refills, Maintenance, 06/26/19 20:35:00 EST, Tablet Start Date: 06/26/19 Status: OrderedhydrOXYzine hydrochloride 25 mg oral tablet 1 tablet = 25 mg, By Mouth, 3 times a day, PRN for anxiety, # 40 tablet, 0 Refills, Maintenance, 06/26/19 20:34:00 EST, Tablet Start Date: 06/26/19 Status: Orderedlactulose 10 gm/15 ml oral syrup 30 mL = 20 Gm, By Mouth, 3 times a day, PRN Other, for 30 days, PRN to acheive 3-4 BMs per day, # 3,000 mL, 11 Refills, Acute 06/16/20 12:33:00 EST, 06/22/19 12:33:00 EST, [facility], 30 mL By Mouth 3 times a day,x... Start Date: 06/22/19 Stop Date: 06/16/20 Status: Orderedlactulose 10 gm/15 ml oral syrup [...] 20:34:00 EST, Tablet Start Date: 06/26/19 Status: Orderednaltrexone 50 mg oral tablet 1 tablet = 50 mg, By Mouth, Daily, through clean slate, # 30 tablet, 0 Refills, Maintenance, 05/10/18 9:30:24 EST, Tablet Start Date: 05/10/18 Status: Orderedpantoprazole 40 mg oral delayed release tablet 1 tablet = 40 mg, By Mouth, Daily, # 30 tablet, 0 Refills, Maintenance, 06/26/19 20:34:00 EST, EC Tablet Start Date: 06/26/19 Status: OrderedrifAXIMin 550 mg oral tablet = 550 mg, By Mouth, 2 times a day, # 60 tablet, 0 Refills, Maintenance, 06/20/19 12:30:00 EST, Tablet, [facility], 175, cm, 06/20/19 12:00:00 EST, Height, 81.2, kg, 02/04/19 1:40:00 EDT, Dry Weight Start Date: 06/20/19 Stop Date: 07/20/19 Status: Orderedsertraline 100 mg oral tablet 1 tablet = 100 mg, By Mouth, Daily, combine with 50mg tab to equal 150mg daily, # 90 tablet, 0 Refills, Maintenance, 06/26/19 20:32:00 EST, Tablet, [facility], 175, cm, 06/20/19 12:00:00 EST, Height, 81.2, kg, 02/04/19 1:40:00 EDT, Dry Weight Start Date: 06/26/19 Status: Orderedsertraline 50 mg oral tablet 1 tablet, By Mouth, Daily, TAKE ALONG WITH A 100MG TABLET to equal 150mg daily, # 90 tablet, 0 Refills, Maintenance, 06/22/19 12:32:00 EST, [facility], 175, cm, 06/20/19 12:00:00 EST, Height, 81.2, kg, 02/04/19 1:40:00 EDT, Dry Weight Start Date: 06/22/19 Status: QrnjmniRbh-E-Luba oral tablet 1 tablet, By Mouth, Daily, # 30 tablet, 11 Refills, Maintenance, 06/16/19 12:42:00 EST, [facility], 30, TAKE 1 TABLET BY MOUTH ONCE A DAY, 175, cm, 02/06/19 7:59:00 EDT, Height, 81.2, kg, 02/04/19 1:40:00 EDT, Dry Weight Start Date: 06/16/19 Status: Orderedthermometer R50.9 thermometer R50.9, See Instructions, # 1 each, Refills 0, Tot. Refills 0, Maintenance, use as directed, 06/13/18 10:30:58 EST, Compound Start Date: 06/13/18 Status: OrderedtraZODone 50 mg oral tablet See Instructions, # 60 tablet, Refills 5 Tot. Refills 5, TAKE 1 TO 2 TABLETS BY MOUTH AT BEDTIME, [facility] Start Date: 01/02/19 Status: OrderedVitamin B1 100 mg oral tablet 1, tablet, By Mouth, Daily, # 90 tablet, Refills 3, Tot. Refills 0, Acute, 06/16/19 12:42:00 EST, Route to Pharmacy Electronically, [facility], 175, cm, 02/06/19 7:59:00 EDT, Height, 81.2, kg, 02/04/19 1:40:00 EDT, Dry Weight Start Date: 06/16/19 Status: Ordered Problem List Condition Effective Dates [...] Active Vitamin D insufficiency(Confirmed) 08/16/12 Active 1refer [id number] HEP C,b; immune HEP A,3r/o humhznzqrnhbhlqg6iwhevt3xcgqkxzo counseling6? eufpdfx1srd RF ANCA,normal immunofixation,8lumbar puncture November 2011,neg lymenormal IGA neg SSA ,SSBnormal methylmalonic acid homocyseine9 legally blind;eyihuhuxvb28smivma echo November 2014 Vital Signs Most recent to oldest [Reference Range]: 1 Height 175 cm (06/20/19 12:00 PM) Weight 80.7 kg (06/20/19 12:00 PM) Oxygen Saturation [94-100 %] 99 % (06/20/19 12:00 PM) Pulse Rate [55-90 bpm] 113 bpm *H* (06/20/19 12:00 PM) Body Mass Index [18.5-24.99] 26.35 *H* (06/20/19 12:00 PM) Blood Pressure [90-138/55-84 mm Hg] 130/80 mm Hg (06/20/19 12:00 PM) Social History Social History Type Response Smoking Status 10 or more cigarettes (1/2 p ack or more)/day in last 30 days entered on: 02/04/19 Sex
--- OUTSIDE RECORDS SUMMARY | 2022-03-14 03:14 | XMS_ITS | Continuity of Care Document ---
:1975 Author Organization [facility] Address [address] [place] [id number]- Care Team Providers Name Role Phone Jany Baig DO Primary Care Physician [place] [facility] [place]20 [facility] [address] [place] [id number]- Attending Physician: Cristofer Steiner MD Admitting Physician: [...] in the past and had GI side [id number] advised not to take d/t underlying liver [...] 08/02/12 Given 1Admin Note: #22Result Comment: [04/29/2017] [id number] Note: [email or web address] Admin Note: 3 RDINJ Medications baclofen 10 mg oral tablet 10 mg, 1, tablet, By Mouth, 3 times a day, # 90 tablet, Refills 4, Tot. Refills 4, Maintenance, 02/16/20 17:55:00 EDT, Route to Pharmacy Electronically, [facility], 175, cm, 08/24/19 14:14:00 EDT, Height, 81.2, kg, 02/04/19 1:40:00 EDT, Dry We... Start Date: 02/16/20 Stop Date: 07/15/20 Status: Orderedchantix 1mg tablet 1 tablet, By Mouth, 2 times a day, for 12 week(s), # 56 tablet, 0 Refills, Acute, 05/21/20 12:54:00 EST, [facility], 175, cm, 04/02/20 0:35:00 EDT, Height, 100, kg, 04/02/20 0:35:00 EDT, Dry Weight Start Date: 05/21/20 Stop Date: 08/13/20 Status: OrderedCo Q-10 100 mg oral capsule 1 capsule, By Mouth, 4 times a day, # 120 capsule, 11 Refills, Maintenance, 11/21/19 10:36:00 EDT, [facility]/pharmacy #[id number], 175, cm, 08/24/19 14:14:00 EDT, Height, 81.2, kg, 02/04/19 1:40:00 EDT, Dry Weight Start Date: 11/21/19 Stop Date: 11/15/20 Status: OrderedEngerix-B 20 mcg/mL intramuscular suspension = 20 mcg, Intramuscular, Every 30 days, rpt at 1 and 6 months, # 1 mL, 2 Refills, Maintenance, 11/02/19 9:02:00 EDT, Suspension, [facility]/pharmacy #[id number], 175, cm, 08/24/19 14:14:00 EDT, Height, 81.2, kg, 02/04/19 1:40:00 EDT, Dry Weight Start Date: 11/02/19 Status: Orderedfluticasone 50 mcg/inh nasal spray See Instructions, SPRAY 1 SPRAY INTO EACH NOSTRIL TWICE A DAY, # 16 Gm, 5 Refills, 01/26/20 9:52:00 EDT, [facility], 30, SPRAY 1 SPRAY INTO EACH NOSTRIL TWICE A DAY, 175, cm, 08/24/19 14:14:00 EDT, Height, 81.2, kg, 02/04/19 1:40:00 EDT, Dry W... Start Date: 01/26/20 Status: Orderedgabapentin 600 mg oral tablet 1 tablet, By Mouth, 4 times a day, # 120 tablet, 2 Refills, Maintenance, 05/21/20 12:54:00 EST, [facility], 175, cm, 04/02/20 0:35:00 EDT, Height, 100, kg, 04/02/20 0:35:00 EDT, Dry Weight Start Date: 05/21/20 Status: OrderedhydrOXYzine hydrochloride 25 mg oral tablet 1 TO 2 TABLETS, By Mouth, 3 times a day, PRN NEEDED FOR ANXIETY (VIAL), # 60 tablet, 1 Refills, Acute, 05/21/20 12:54:00 EST, [facility], 175, cm, 04/02/20 0:35:00 EDT, Height, [...] EDT, 12/01/19 16:37:00 EDT, Syrup, [facility], re sent from 10/04/17, 30... Start [...] Maintenance, 10/06/19 16:16:00 EDT, Tablet, [facility], 175, cm, 08/24/19 14:14:00 EDT, Height, [...] Gm, 0 Refills, Maintenance, 04/16/20 14:45:00 EST, [facility]/pharmacy #[id number], 8, APPLY TOPICALLY THREE TIMES DAILY [...] Maintenance, 10/06/19 15:57:00 EDT, Tablet, [facility], 175, cm, 08/24/19 14:14:00 EDT, Height, 81.2, kg, 02/04/19 1:40:00 EDT, Dry Weight Start Date: 10/06/19 Status: Orderedsertraline 50 mg oral tablet 1 tablet, By Mouth, Daily, TAKE ALONG WITH A 100MG TABLET to equal 150mg daily, # 90 tablet, 1 Refills, Maintenance, 10/06/19 15:57:00 EDT, [facility], 175, cm, 08/24/19 14:14:00 EDT, Height, 81.2, kg, 02/04/19 1:40:00 EDT, Dry Weight Start Date: 10/06/19 Status: Orderedsildenafil 50 mg oral tablet 1 tablet = 50 mg, By Mouth, Daily, PRN erectile dysfunction, 1 hour before sexual activity, # 6 tablet, 5 Refills, Maintenance, 03/11/20 14:37:00 EDT, Tablet, [facility]/pharmacy #[id number], 175, cm, 08/24/19 14:14:00 EDT, Height, 81.2, kg, 02/04/19 1:40:00 EDT,... Start Date: 03/11/20 Status: VnddcxpBqu-F-Fkbe oral tablet 1 tablet, By Mouth, Daily, # 90 tablet, 1 Refills, Maintenance, 05/21/20 9:35:00 EST, [facility], 1 tablet By Mouth Daily, 175, [...] 09/27/19 8:51:00 EDT, Route to Pharmacy Electronically, [facility], 175, cm, 08/24/19 14:14:00 EDT, Height, 81.2, kg, 02/04/19 1:40:00 EDT, Dry Weight Start Date: 09/27/19 Status: OrderedXifaxan 550 mg oral tablet 1 tablet, By Mouth, 2 times a day, # 60 tablet, 0 Refills, Maintenance, 04/16/20 14:45:00 EST, [facility]/pharmacy #[id number], 175, cm, 04/02/20 0:35:00 EDT, [...] Active Vitamin D insufficiency(Confirmed) 08/16/12 Active 1refer [id number] HEP C,b; immune HEP A,3r/o hadrvlfqazcvhiiz1qbchqr4banzgkyf counseling6? [id number] RF ANCA,normal immunofixation,8lumbar puncture November 2011,neg lymenormal IGA neg SSA ,SSBnormal methylmalonic acid homocyseine9 legally blind;[id number] echo November 2014 Social History Social History Type Response Smoking Status 10 or more cigarettes (1/2 p ack or more)/day in last 30 days entered on: 02/04/19 Sex
--- OUTSIDE RECORDS SUMMARY | 2022-03-14 03:14 | XMS_ITS | Continuity of Care Document ---
:1975 Author Organization [facility] Address [address] [place] [id number]- Care Team Providers Name Role Phone Jany Baig DO Primary Care Physician Encounter [facility] [place] Date(s): 08/08/21 - 09/20/[address] [address] Attending Physician: Cristofer Steiner MD Admitting Physician: [...] in the past and had GI side [id number] advised not to take d/t underlying liver [...] acel (oldterm) 08/02/12 Given 1Result Comment: [04/29/2017] [id number] Note: [id number] Note: 3 [id number] Note: #2 Medications amLODIPine 5 mg oral tablet 5 mg, 1, tablet, By Mouth, Daily, Refills 0, Maintenance, 09/17/21 10:57:00 EDT, Partial fill upon patient request if the prescription is for a schedule II opioid drug. Start Date: 09/17/21 Status: OrderedCo Q-10 100 mg oral capsule 1 capsule, By Mouth, 4 times a day, # 120 capsule, 6 Refills, [facility], 174, cm, 02/27/21 15:17:00 EDT, Height, 81, kg, 02/27/21 14:06:00 EDT, Dry Weight Start Date: 07/08/21 Status: Orderedfluticasone 50 mcg/inh nasal spray See Instructions, USE 1 SPRAY INTO EACH NOSTRIL TWICE A DAY, # 16 Gm, 5 Refills, [facility], USE 1 SPRAY INTO EACH NOSTRIL TWICE A DAY, 174, cm, 07/14/21 8:16:00 EST, Height, 81, kg, 02/27/21 14:06:00 EDT, Dry Weight Start Date: 08/04/21 Status: Orderedfolic acid 1 mg oral tablet 1 mg, 1, tablet, By Mouth, Daily, Refills 0, Maintenance, 09/17/21 10:57:00 EDT, Partial fill upon patient request if the prescription is for a schedule II opioid drug. Start Date: 09/17/21 Status: Orderedgabapentin 300 mg oral capsule 300 mg, 1, capsule, By Mouth, 3 times a day, Refills 0, Maintenance, 09/17/21 12:00:00 EDT, Partial fill upon patient request if the prescription is for a schedule II opioid drug. Start Date: 09/17/21 Status: OrderedhydrOXYzine hydrochloride 25 mg oral tablet 1 TO 2 TABLETS, By Mouth, 3 times a day, PRN NEEDED FOR ANXIETY (VIAL), # 60 tablet, 0 Refills, [facility], 174, cm, 08/14/21 14:21:00 EST, Height, 81, kg, 02/27/21 14:06:00 EDT, Dry Weight Start Date: 08/18/21 Status: Orderedlactulose 10 gm/15 ml oral syrup See Instructions, TAKE 30ML BY MOUTH THREE TIMES DAILY NEEDED TO ACHEIVE 3-4 BOWL MOVEMENTS PER DAY, # 3,000 mL, 10 Refills, [facility], 30, TAKE 30ML BY MOUTH [...] 2 times a day, 0 Refills, Maintenance, 09/17/21 10:57:00 EDT, Tablet, Partial fill upon patient request if the prescription is for a schedule II opioid drug. Start Date: 09/17/21 Status: OrderedMelatonin 3 mg oral tablet 1 tablet, By Mouth, Daily at bedtime, PRN NEEDED FOR INSOMNIA (PACKAGE IN TRAY), # 60 tablet, 5 Refills, Maintenance, 06/02/21 16:17:00 EST, [facility], 28, 1 tablet By Mouth [...] tablet = 40 mg, By Mouth, Daily, 0 Refills, Maintenance, 09/17/21 10:57:00 EDT, EC Tablet Start Date: 09/17/21 Status: OrderedPyridoxine Tablet 50 mg, By Mouth, [...] II opioid drug. Start Date: 08/28/21 Status: CokatddHxo-Q-Zktz oral tablet 1 tablet, By Mouth, Daily, # 90 tablet, 9 Refills, [facility], 28, TAKE 1 TABLET BY MOUTH ONCE A DAY, 174, cm, 07/14/21 8:16:00 EST, Height, 81, kg, 02/27/21 14:06:00 EDT, Dry Weight Start Date: 07/22/21 Status: OrderedtraZODone 50 mg oral tablet See Instructions, TAKE 1 TO 2 TABLETS BY MOUTH AT BEDTIME (ONE DOSE IN VIAL), # 60 tablet, Refills 0, Instructions Replace Required Details, Route to Pharmacy Electronically, [facility], 174, cm, 08/14/21 14:21:00 EST, Height, 81, kg, 02/27/21... Start Date: 08/18/21 Status: OrderedVitamin B1 100 mg oral tablet 1, tablet, By Mouth, Daily, # 90 tablet, Refills 1, Route to Pharmacy Electronically, [facility], 174, cm, 02/27/21 15:17:00 EDT, [...] Active Vitamin D insufficiency(Confirmed) 08/16/12 Active 1refer [id number] HEP C,b; immune HEP A,3r/o zrxvnlpezpjckqsy0hogngq4sgxsnkuv counseling6? wevjirp6pky RF ANCA,normal immunofixation,8lumbar puncture November 2011,neg lymenormal IGA neg SSA ,SSBnormal methylmalonic acid homocyseine9 legally blind;[id number] echo November 2014 Social History Social History Type Response Smoking Status 10 or more cigarettes (1/2 p ack or more)/day in last 30 days entered on: 02/04/19 Sex Male
--- OUTSIDE RECORDS SUMMARY | 2022-03-14 03:14 | XMS_ITS | Continuity of Care Document ---
:1975 Author Organization [facility] Address [address] [place] [address]- Care Team Providers Name Role Phone Jany Baig DO Primary Care Physician Encounter [facility] Date(s): 01/21/21 - 02/20/21 [facility] [address] [place] [id number]- [place] Allergies, Adverse Reactions, Alerts Substance Reaction Severity Status ibuprofen1 Hx of GI Bleed Active aspirin2 Hx GI Bleed Active Tylenol3 Cirrhosis Active NSAIDs Active 1pt advised not to take NSAIDs or Tylenol due to underlying liver disease. Also had GI side effects when took too much aspirin in the past.2pt took too much in the past and had GI side [id number] advised not to take d/t underlying liver [...] 08/02/12 Given 1Admin Note: #22Result Comment: [04/29/2017] [id number] Note: [email or web address] Admin Note: 3 RDINJ Medications baclofen 10 mg oral tablet 1, tablet, By Mouth, 3 times a day, # 90 tablet, Refills 0, Route to Pharmacy Electronically, [facility], 174, cm, 02/11/21 12:09:00 EDT, Height, 86.6, kg, 02/06/21 14:20:00 EDT, Dry Weight Start Date: 02/19/21 Status: Orderedchantix 1mg tablet 1 tablet, By Mouth, 2 times a day, # 56 tablet, 0 Refills, Acute, 11/22/20 16:13:00 EDT, [facility], 178, cm, 11/12/20 15:32:00 EDT, Height, 84.9, kg, 08/31/20 1:07:00 EDT, Dry Weight Start Date: 11/22/20 Status: OrderedCo Q-10 100 mg oral capsule See Instructions, TAKE 1 CAPSULE BY MOUTH FOUR TIMES DAILY, # 120 capsule, 7 Refills, Maintenance, [facility], 178, cm, 10/22/20 13:17:00 EDT, Height, 84.9, kg, 08/31/20 1:07:00 EDT, Dry Weight Start Date: 11/01/20 Status: OrderedCo Q-10 100 mg oral capsule 1 capsule, By Mouth, 4 times a day, # 120 capsule, 11 Refills, Maintenance, 11/21/19 10:36:00 EDT, [facility]/pharmacy #[id number], 175, cm, 08/24/19 14:14:00 EDT, Height, 81.2, kg, 02/04/19 1:40:00 EDT, Dry Weight Start Date: 11/21/19 Stop Date: 11/15/20 Status: Orderedfluticasone 50 mcg/inh nasal spray See Instructions, USE 1 SPRAY INTO EACH NOSTRIL TWICE A DAY, # 16 Gm, 5 Refills, Maintenance, [facility], 30, USE 1 SPRAY INTO EACH NOSTRIL TWICE A DAY, 178, cm, 01/07/21 17:59:00 EDT, Height, 81.4, kg, 12/03/20 13:52:00 EDT, Dry Weight Start Date: 01/17/21 Status: Orderedgabapentin 600 mg oral tablet 1 tablet, By Mouth, 4 times a day, # 120 tablet, 0 Refills, [facility], 174, cm, 02/11/21 12:09:00 EDT, Height, 86.6, kg, 02/06/21 14:20:00 EDT, Dry Weight Start Date: 02/19/21 Status: OrderedhydrOXYzine hydrochloride 25 mg oral tablet 1 TO 2 TABLETS, By Mouth, 3 times a day, PRN NEEDED FOR ANXIETY (VIAL), # 60 tablet, 2 Refills, [facility], 174, cm, 02/11/21 12:09:00 EDT, Height, 86.6, kg, 02/06/21 14:20:00 EDT, Dry Weight Start Date: 02/19/21 Status: OrderedKeppra 500 mg oral tablet 1 tablet = 500 mg, By Mouth, 2 times a day, # 14 tablet, 0 Refills, Maintenance, 11/01/20 11:59:00 EDT, Tablet, [facility], Partial fill upon patient request if the prescription is for a schedule II opioid drug., 178, cm, 10/22/20 13:17:... Start Date: 11/01/20 Stop Date: 11/08/20 Status: Orderedmelatonin 3 mg oral tablet 1 tablet = 3 mg, By Mouth, Daily at bedtime, PRN for insomnia, # 60 tablet, 4 Refills, Maintenance, 07/18/20 17:30:00 EST, Tablet, [facility], 175, cm, 04/02/20 0:35:00 [...] 1 Refills, Maintenance, 10/06/19 15:57:00 EDT, Tablet, [facility], 175, cm, 08/24/19 14:14:00 EDT, Height, 81.2, kg, 02/04/19 1:40:00 EDT, Dry Weight Start Date: 10/06/19 Status: Orderedsertraline 50 mg oral tablet 1 tablet, By Mouth, Daily, TAKE ALONG WITH A 100MG TABLET to equal 150mg daily, # 90 tablet, 1 Refills, Maintenance, 10/06/19 15:57:00 EDT, [facility], 175, cm, 08/24/19 14:14:00 EDT, Height, 81.2, kg, 02/04/19 1:40:00 EDT, Dry Weight Start Date: 10/06/19 Status: Orderedsildenafil 50 mg oral tablet 1 tablet = 50 mg, By Mouth, Daily, PRN erectile dysfunction, 1 hour before sexual activity, # 6 tablet, 5 Refills, Maintenance, 03/11/20 14:37:00 EDT, Tablet, [facility]/pharmacy #[id number], 175, cm, 08/24/19 14:14:00 EDT, Height, 81.2, kg, 02/04/19 1:40:00 EDT,... Start Date: 03/11/20 Status: BubeajhAlp-V-Rwlz oral tablet See Instructions, TAKE 1 TABLET BY MOUTH ONCE A DAY, # 30 tablet, 10 Refills, Maintenance, [facility], 28, TAKE 1 TABLET BY MOUTH ONCE [...] 0 Refills, Maintenance, 10/22/20 17:52:00 EDT, Tablet, [facility]/pharmacy #[id number], Partial fill upon patient request if the prescription is for a schedule II opioid drug., 178, cm, 10/22/20 13:17:00 EDT, Height... Start Date: 10/22/20 Status: OrderedtraZODone 50 mg oral tablet See Instructions, TAKE 1 TO 2 TABLETS BY MOUTH AT BEDTIME (ONE DOSE IN VIAL), # 60 tablet, Refills 5, Instructions Replace Required Details, Route to Pharmacy Electronically, [facility], 174, cm, 02/11/21 12:09:00 EDT, Height, 86.6, kg, ... Start Date: 02/15/21 Status: OrderedVitamin B1 100 mg oral tablet 1, tablet, By Mouth, Daily, # 90 tablet, Refills 2, Tot. Refills 0, Acute, 09/05/20 17:32:00 EDT, [facility] to Pharm[facility], [facility], 178, cm, 08/31/20 11:25:00 EDT, Height, 84.9, kg,08/31/20 1:07:00 EDT, Dry Weight Start Date: 09/05/20 Status: OrderedXifaxan 550 mg oral tablet 1 tablet, By Mouth, 2 times a day, # 60 tablet, 0 Refills, Maintenance, 04/16/20 14:45:00 EST, [facility]/pharmacy #[id number], 175, cm, 04/02/20 0:35:00 EDT, Height, [...] Active Vitamin D insufficiency(Confirmed) 08/16/12 Active 1refer [id number] HEP C,b; immune HEP A,3r/o dpgmazwviemrnobx7dhvfhi9bymrrltx counseling6? [id number] RF ANCA,normal immunofixation,8lumbar puncture November 2011,neg lymenormal IGA neg SSA ,SSBnormal methylmalonic acid homocyseine9 legally blind;[id number] echo November 2014 Social History Social History Type Response Smoking Status 10 or more cigarettes (1/2 p ack or more)/day in last 30 days entered on: 02/04/19 Sex
--- OUTSIDE RECORDS SUMMARY | 2022-03-14 03:14 | XMS_ITS | Continuity of Care Document ---
:1975 Author Organization [facility] Address [address] [place] [address]- Care Team Providers Name Role Phone Jany Baig DO Primary Care Physician [place] [facility] [place] 10/14/20 - 11/27/20 [facility] [address] [place] [address]- Attending Physician: Maryann LEE, Jennifer Jorgensen Referring Physician: Jany Baig DO Allergies, Adverse [...] in the past and had GI side [id number] advised not to take d/t underlying liver [...] 08/02/12 Given 1Admin Note: #22Result Comment: [04/29/2017] [id number] Note: [email or web address] Admin Note: 3 RDINJ Medications baclofen 10 mg oral tablet 1, tablet, By Mouth, 3 times a day, # 90 tablet, Refills 0, Tot. Refills 0, Maintenance, 11/22/20 16:13:00 EDT, Route to Pharmacy Electronically, [facility], 178, cm, 11/12/20 15:32:00 EDT, Height, 84.9, kg, 08/31/20 1:07:00 EDT, Dry Weight Start Date: 11/22/20 Status: Orderedchantix 1mg tablet 1 tablet, By Mouth, 2 times a day, # 56 tablet, 0 Refills, Acute, 11/22/20 16:13:00 EDT, [facility], 178, cm, 11/12/20 15:32:00 EDT, Height, 84.9, kg, 08/31/20 1:07:00 EDT, Dry Weight Start Date: 11/22/20 Status: OrderedCo Q-10 100 mg oral capsule See Instructions, TAKE 1 CAPSULE BY MOUTH FOUR TIMES DAILY, # 120 capsule, 7 Refills, Maintenance, [facility], 178, cm, 10/22/20 13:17:00 EDT, Height, 84.9, kg, 08/31/20 1:07:00 EDT, Dry Weight Start Date: 11/01/20 Status: OrderedCo Q-10 100 mg oral capsule 1 capsule, By Mouth, 4 times a day, # 120 capsule, 11 Refills, Maintenance, 11/21/19 10:36:00 EDT, [facility]/pharmacy #[id number], 175, cm, 08/24/19 14:14:00 EDT, Height, 81.2, kg, 02/04/19 1:40:00 EDT, Dry Weight Start Date: 11/21/19 Stop Date: 11/15/20 Status: Orderedfluticasone 50 mcg/inh nasal spray See Instructions, SPRAY 1 SPRAY INTO EACH NOSTRIL TWICE A DAY, # 16 Gm, 5 Refills, 07/09/20 11:38:00EST, [facility], 30, SPRAY 1 SPRAY INTO EACH NOSTRIL TWICE A DAY, 175, cm, 04/02/20 0:35:00 EDT, Height, 100, kg, 04/02/20 0:35:00 EDT, Dry We... Start Date: 07/09/20 Status: Orderedgabapentin 600 mg oral tablet 1 tablet, By Mouth, 4 times a day, # 120 tablet, 0 Refills, Maintenance, 11/22/20 16:13:00 EDT, [facility], 178, cm, 11/12/20 15:32:00 EDT, Height, 84.9, kg, 08/31/20 1:07:00 EDT, Dry Weight Start Date: 11/22/20 Status: OrderedhydrOXYzine hydrochloride 25 mg oral tablet 1 TO 2 TABLETS, By Mouth, 3 times a day, PRN NEEDED FOR ANXIETY (VIAL), # 60 tablet, 3 Refills, Maintenance, 10/07/20 16:49:00 EDT, [facility], 178, cm, 08/31/20 11:25:00 EDT, Height, 84.9, kg, 08/31/20 1:07:00 EDT, Dry Weight Start Date: 10/07/20 Status: OrderedKeppra 500 mg oral tablet 1 tablet = 500 mg, By Mouth, 2 times a day, # 14 tablet, 0 Refills, Maintenance, 11/01/20 11:59:00 EDT, Tablet, [facility], Partial fill upon patient request if the prescription is for a schedule II opioid drug., 178, cm, 10/22/20 13:17:... Start Date: 11/01/20 Stop Date: 11/08/20 Status: Orderedmelatonin 3 mg oral tablet 1 tablet = 3 mg, By Mouth, Daily at bedtime, PRN for insomnia, # 60 tablet, 4 Refills, Maintenance, 07/18/20 17:30:00 EST, Tablet, [facility], 175, cm, 04/02/20 0:35:00 EDT, [...] 1 Refills, Maintenance, 10/06/19 15:57:00 EDT, Tablet, [facility], 175, cm, 08/24/19 14:14:00 EDT, Height, 81.2, kg, 02/04/19 1:40:00 EDT, Dry Weight Start Date: 10/06/19 Status: Orderedsertraline 50 mg oral tablet 1 tablet, By Mouth, Daily, TAKE ALONG WITH A 100MG TABLET to equal 150mg daily, # 90 tablet, 1 Refills, Maintenance, 10/06/19 15:57:00 EDT, [facility], 175, cm, 08/24/19 14:14:00 EDT, Height, 81.2, kg, 02/04/19 1:40:00 EDT, Dry Weight Start Date: 10/06/19 Status: Orderedsildenafil 50 mg oral tablet 1 tablet = 50 mg, By Mouth, Daily, PRN erectile dysfunction, 1 hour before sexual activity, # 6 tablet, 5 Refills, Maintenance, 03/11/20 14:37:00 EDT, Tablet, [facility]/pharmacy #[id number], 175, cm, 08/24/19 14:14:00 EDT, Height, 81.2, kg, 02/04/19 1:40:00 EDT,... Start Date: 03/11/20 Status: NfchaxpRvh-G-Giur oral tablet See Instructions, TAKE 1 TABLET BY MOUTH ONCE A DAY, # 30 tablet, 10 Refills, [facility], TAKE 1 TABLET BY MOUTH ONCE [...] 0 Refills, Maintenance, 10/22/20 17:52:00 EDT, Tablet, [facility]/pharmacy #[id number], Partial fill upon patient request [...] Replace Required Details, Route to Pharmacy Electronically, [facility], 178, cm, 10/22/20... Start Date: 11/01/20 Status: OrderedVitamin B1 100 mg oral tablet 1, tablet, By Mouth, Daily, # 90 tablet, Refills 2, Tot. Refills 0, Acute, 09/05/20 17:32:00 EDT, Route to Pharmacy Electronically, [facility], 178, cm, 08/31/20 11:25:00 EDT, Height, 84.9, kg,08/31/20 1:07:00 EDT, Dry Weight Start Date: 09/05/20 Status: OrderedXifaxan 550 mg oral tablet 1 tablet, By Mouth, 2 times a day, # 60 tablet, 0 Refills, Maintenance, 04/16/20 14:45:00 EST, [facility]/pharmacy #[id number], 175, cm, 04/02/20 0:35:00 EDT, [...] Active Vitamin D insufficiency(Confirmed) 08/16/12 Active 1refer [id number] HEP C,b; immune HEP A,3r/o qulbxqsehflqrcex6exkmea0kzipchje counseling6? ulawinp7gyb RF ANCA,normal immunofixation,8lumbar puncture November 2011,neg lymenormal IGA neg SSA ,SSBnormal methylmalonic acid homocyseine9 legally blind;[id number] echo November 2014 Social History Social History Type Response Smoking Status 10 or more cigarettes (1/2 p ack or more)/day in last 30 days entered on: 02/04/19 Sex
--- OUTSIDE RECORDS SUMMARY | 2022-03-14 03:14 | XMS_ITS | Continuity of Care Document ---
:1975 Author Organization [facility] Address [address] [place] [address]- Care Team Providers Name Role Phone Jany Baig DO Primary Care Physician [facility]counter [facility] Date(s): 12/26/19 - 01/25/20 [facility] [id number] [place] [address]- [facility] Allergies, Adverse Reactions, Alerts Substance Reaction Severity Status ibuprofen1 Hx of GI Bleed Active aspirin2 Hx GI Bleed Active Tylenol3 Cirrhosis Active NSAIDs Active 1pt advised not to take NSAIDs or Tylenol due to underlying liver disease. Also had GI side effects when took too much aspirin in the past.2pt took too much in the past and had GI side [id number] advised not to take d/t underlying liver [...] 08/02/12 Given 1Admin Note: #22Result Comment: [04/29/2017] [id number] Note: [id number] Admin Note: 3 RDINJ Medications baclofen 10 mg oral tablet 10 mg, 1, tablet, By Mouth, 3 times a day, # 90 tablet, Refills 4, Tot. Refills 4, Maintenance, 10/06/19 16:18:00 EDT, Route to Pharmacy Electronically, [facility], 175, cm, 08/24/19 14:14:00 EDT, Height, 81.2, kg, 02/04/19 1:40:00 EDT, Dry We... Start Date: 10/06/19 Stop Date: 03/04/20 Status: Orderedchantix 1mg tablet 1 tablet = 1 mg, By Mouth, 2 times a day, with a full glass of water, continue for total of 12 wks, # 56 tablet, 1 Refills, Maintenance, 10/06/19 15:54:00 EDT, Tablet, [facility], 175, cm, 08/24/19 14:14:00 EDT, Height, 81.2, kg, 02/04/19 1:40... Start Date: 10/06/19 Status: Orderedchantix 1mg tablet See Instructions, TAKE 1 TABLET BY MOUTH TWICE A DAY WITH A FULL GLASS OF WATER AND CONTINUE FOR A TOTAL OF 12 WEEKS, # 56 tablet, 0 Refills, Maintenance, 12/29/19 16:43:00 EDT, [facility], 175, cm, 08/24/19 14:14:00 EDT, Height, 81.2, kg, 08/... Start Date: 12/29/19 Status: OrderedCo Q-10 100 mg oral capsule [...] 2 Refills, Maintenance, 11/02/19 9:02:00 EDT, Suspension, [facility]/pharmacy #[id number], 175, cm, 08/24/19 14:14:00 EDT, Height, 81.2, kg, 02/04/19 1:40:00 EDT, Dry Weight Start Date: 11/02/19 Status: Orderedfluticasone 50 mcg/inh nasal spray See Instructions, SPRAY 1 SPRAY INTO EACH NOSTRIL TWICE A DAY, # 16 Gm, 5 Refills, 01/23/20 13:39:00EDT, [facility]/pharmacy #[id number], 30, SPRAY 1 SPRAY INTO EACH NOSTRIL TWICE A DAY, 175, cm, 08/24/19 14:14:00EDT, Height, 81.2, kg, 02/04/19 1:40:00 EDT, Dry... Start Date: 01/23/20 Status: Orderedgabapentin 600 mg oral tablet 1 tablet = 600 mg, By Mouth, 4 times a day, to replace prior script, # 120 tablet, 3 Refills, Maintenance, 10/09/19 11:18:00 EDT, Tablet, [facility], 175, cm, 08/24/19 14:14:00 EDT, Height, 81.2, kg, 02/04/19 1:40:00 EDT, Dry Weight Start Date: 10/09/19 Stop Date: 02/06/20 Status: OrderedhydrOXYzine hydrochloride 25 mg oral tablet 1 TO 2 TABLETS, By Mouth, 3 times a day, PRN NEEDED FOR ANXIETY, # 60 tablet, 2 Refills, Maintenance, 12/01/19 13:15:00 EDT, [facility], 175, cm, 08/24/19 14:14:00 EDT, Height, 81.2, kg, 02/04/19 1:40:00 EDT, Dry Weight Start Date: 12/01/19 Status: Orderedlactulose 10 gm/15 ml oral syrup 30 mL = 20 Gm, By Mouth, 3 times a day, PRN Other, for 30 days, PRN to acheive 3-4 BMs per day fill in prefilled syringes, # 3,000 mL, 11 Refills, Acute 11/25/20 16:37:00 EDT, 12/01/19 16:37:00 EDT, Syrup, [facility], re sent from 10/04/17, [...] 4 Refills, Maintenance, 10/06/19 16:16:00 EDT, Tablet, [facility], 175, cm, 08/24/19 14:14:00 EDT, Height, 81.2, kg, 02/04/19 1:40:00 EDT, Dry Weight Start Date: 10/06/19 Status: Orderedmupirocin 2% topical ointment See Instructions, APPLY TOPICALLY THREE TIMES DAILY (APPLY A THIN FILM), # 22 Gm, 0 Refills, Acute, [facility], 8, APPLY TOPICALLY THREE TIMES DAILY (APPLY A THIN FILM), 175, cm, 08/24/19 14:14:00 EDT, Height, 81.2, kg, 02/04/19 1:40:00 EDT, D... Start Date: 10/30/19 Status: Orderedmupirocin 2% topical ointment See Instructions, APPLY TOPICALLY THREE TIMES DAILY (APPLY A THIN FILM), # 22 Gm, 0 Refills, Maintenance, 12/29/19 16:43:00 EDT, [facility], 8, APPLY TOPICALLY THREE TIMES DAILY (APPLY A THIN FILM), 175, cm, 08/24/19 14:14:00 EDT, Height, 81.2... Start Date: 12/29/19 Status: Orderednaltrexone 50 mg oral tablet 1 tablet = 50 mg, By Mouth, Daily, through clean slate, # 30 tablet, 0 Refills, Maintenance, 05/10/18 9:30:24 EST, Tablet Start Date: 05/10/18 Status: Orderedpantoprazole 40 mg oral delayed release tablet 1 tablet, By Mouth, 2 times a day, # 60 tablet, 2 Refills, Maintenance, 01/23/20 13:39:00 EDT, 175, cm, 08/24/19 14:14:00 EDT, Height, 81.2, kg, 02/04/19 1:40:00 EDT, Dry Weight Start Date: 01/23/20 Status: Orderedsertraline 100 mg oral tablet 1 tablet = 100 mg, By Mouth, Daily, combine with 50mg tab to equal 150mg daily, # 90 tablet, 1 Refills, Maintenance, 10/06/19 15:57:00 EDT, Tablet, [facility], 175, cm, 08/24/19 14:14:00 EDT, Height, 81.2, kg, 02/04/19 1:40:00 EDT, Dry Weight Start Date: 10/06/19 Status: Orderedsertraline 50 mg oral tablet 1 tablet, By Mouth, Daily, TAKE ALONG WITH A 100MG TABLET to equal 150mg daily, # 90 tablet, 1 Refills, Maintenance, 10/06/19 15:57:00 EDT, [facility], 175, cm, 08/24/19 14:14:00 EDT, Height, 81.2, kg, 02/04/19 1:40:00 EDT, Dry Weight Start Date: 10/06/19 Status: NbbcyeuQoi-K-Vasa oral tablet 1 tablet, By Mouth, Daily, # 30 tablet, 11 Refills, Maintenance, 06/16/19 12:42:00 EST, [facility], 30, TAKE 1 TABLET BY MOUTH [...] TO 2 TABLETS BY MOUTH AT BEDTIME, # 60 tablet, Refills 5, Tot. Refills 5, Soft Stop, 09/14/19 14:41:00 EDT, Instructions Replace Required Details, Route to Pharmacy Electronically, [facility], 175, cm, 08/24/19 14:14:0... Start Date: 09/14/19 Status: OrderedVitamin B1 100 mg oral tablet 1, tablet, By Mouth, Daily, # 90 tablet, Refills 3, Tot. Refills 3, Maintenance, 09/27/19 8:51:00 EDT, Route to Pharmacy Electronically, [facility], 175, cm, 08/24/19 14:14:00 EDT, Height, 81.2, kg, 02/04/19 1:40:00 EDT, Dry Weight Start Date: 09/27/19 Status: OrderedXifaxan 550 mg oral tablet 1 tablet, By Mouth, 2 times a day, # 60 tablet, 0 Refills, Maintenance, 10/30/19 16:57:00 EDT, [facility], 175, cm, 08/24/19 14:14:00 EDT, Height, 81.2, kg, 02/04/19 1:40:00 EDT, Dry Weight Start Date: 10/30/19 Status: OrderedXifaxan 550 mg oral tablet See Instructions, TAKE 1 TABLET BY MOUTH TWICE A DAY, # 60 tablet, 0 Refills, 12/29/19 16:43:00 EDT,[facility], 175, cm, 08/24/19 14:14:00 EDT, Height, 81.2, kg, 02/04/19 1:40:00 EDT, Dry Weight Start Date: 12/29/19 Status: Ordered Problem List Condition Effective Dates [...] Active Vitamin D insufficiency(Confirmed) 08/16/12 Active 1refer [id number] HEP C,b; immune HEP A,3r/o oxbfbcwuqrnefdbu1mptgho3zlhszqux counseling6? [id number] RF ANCA,normal immunofixation,8lumbar puncture November 2011,neg lymenormal IGA neg SSA ,SSBnormal methylmalonic acid homocyseine9 legally blind;[id number] echo November 2014 Social History Social History Type Response Smoking Status 10 or more cigarettes (1/2 p ack or more)/day in last 30 days entered on: 02/04/19 Sex
--- OUTSIDE RECORDS SUMMARY | 2022-03-14 03:14 | XMS_ITS | Continuity of Care Document ---
:1975 Author Organization [facility] Address [address] [place] [address]- Care Team Providers Name Role Phone Jany Baig DO Primary Care Physician [facility]counter [facility] Date(s): 01/01/22 - 01/31/22 [facility] [id number] [place] [address]- Allergies, Adverse Reactions, Alerts Substance Reaction Severity Status ibuprofen1 Hx of GI Bleed Active aspirin2 Hx GI Bleed Active Tylenol3 Cirrhosis Active NSAIDs Active 1pt advised not to take NSAIDs or Tylenol due to underlying liver disease. Also had GI side effects when took too much aspirin in the past.2pt took too much in the past and had GI side [id number] advised not to take d/t underlying liver [...] acel (oldterm) 08/02/12 Given 1Result Comment: [04/29/2017] [id number] Note: [id number] Note: 3 [id number] Note: #2 Medications acetaminophen 500 mg oral tablet 1 tablet, By Mouth, 4 times a day, PRN NEEDED FOR PAIN, MAX 4, PER DAY (VIAL., # 50 tablet, 0 Refills, [facility], 175, cm, 01/06/22 10:34:00 EDT, Height, 78.3, kg, 12/26/21 19:05:00 EDT, Dry Weight Start Date: 01/28/22 Status: OrderedamLODIPine 5 mg oral tablet 5 mg, 1, tablet, By Mouth, Daily, # 30 tablet, Refills 5, Tot. Refills 5, Maintenance, 10/21/21 10:15:00 EDT, [facility], Partial fill upon patient request if the prescription is for a schedule II opioid drug.... Start Date: 10/21/21 Status: OrderedCo Q-10 100 mg oral capsule 1 capsule, By Mouth, 4 times a day, # 120 capsule, 6 Refills, [facility], 174, cm, 02/27/21 15:17:00 [...] A DAY, # 16 Gm, 5 Refills, [facility],30, USE 1 SPRAY INTO EACH NOSTRIL TWICE A DAY, 174, cm, 07/14/21 8:16:00 EST, Height, 81, kg, 02/27/21 14:06:00 EDT, Dry Weight Start Date: 08/04/21 Status: Orderedfolic acid 1 mg oral tablet 1 mg, 1, tablet, By Mouth, Daily, # 90 tablet, Refills 4, Tot. Refills 4, Maintenance, 10/27/21 10:40:00 EDT, Route to Pharmacy Electronically, [facility], Partial fill upon patient request if the prescription is for a schedule II opioid drug.... Start Date: 10/27/21 Stop Date: 01/20/23 Status: Orderedfurosemide 20 mg oral tablet 1, tablet, By Mouth, Daily, # 30 tablet, Refills 0, Route to Pharmacy Electronically, [facility], 175, cm, 01/06/22 10:34:00 EDT, Height, 78.3, kg, 12/26/21 19:05:00 EDT, Dry Weight Start Date: 01/21/22 Status: OrderedhydrOXYzine hydrochloride 25 mg oral tablet 1 TO 2 TABLETS, By Mouth, 3 times a day, PRN NEEDED FOR ANXIETY (VIAL), # 60 tablet, 0 Refills, [facility], 175, cm, 01/06/22 10:34:00 EDT, Height, 78.3, kg, 12/26/21 19:05:00 EDT, Dry Weight Start Date: 01/28/22 Status: Orderedlactulose 10 gm/15 ml oral syrup See Instructions, TAKE 30ML BY MOUTH THREE TIMES DAILY NEEDED TO ACHEIVE 3-4 BOWL MOVEMENTS PER DAY, # 3,000 mL, 10 Refills, [facility], 30, TAKE 30ML BY MOUTH THREE TIMES DAILY NEEDED TOACHEIVE 3-4 BOWL MOVEMENTS PER DAY, 174, cm, 02/12... Start Date: 07/02/21 Status: Orderedlidocaine 0.5% topical gel 1 application, Topically, 3 times a day, # 120 Gm, 0 Refills, Acute 12/30/22 17:23:00 EDT, 12/30/21 17:23:00 EDT, Gel, [facility], Partial fill upon patient request if the prescription is for aschedule II opioid drug., 1 application Topically... Start Date: 12/30/21 Stop Date: 12/30/22 Status: OrderedLidoderm 5% film 1 patch, Topically, Daily, remove patches after 12 hours NSAIDS contraindicated High dose tylenol contraindicated, # 30 patch, 5 Refills, Maintenance, 12/26/21 9:33:00 EDT, [facility], Partial fill upon patient request if the prescription i... Start Date: 12/26/21 Status: Orderedmagnesium oxide 400 mg oral tablet 1 tablet, By Mouth, 2 times a day, # 60 tablet, 0 Refills, [facility], 175, cm, 01/06/22 10:34:00 EDT, Height, 78.3, kg, 12/26/21 19:05:00 EDT, Dry Weight Start Date: 01/21/22 Status: OrderedMelatonin 3 mg oral tablet 1 tablet, By Mouth, Daily at bedtime, PRN NEEDED FOR INSOMNIA (PACKAGE IN TRAY), # 60 tablet, 5 Refills, Maintenance, 06/02/21 16:17:00 EST, [facility], 28, 1 tablet By [...] Refills, Maintenance, 01/28/22 10:17:00 EDT, ER Tablet, [facility], Partial fill upon patient [...] 10/22/21 11:42:00 EDT, Route to Pharmacy Electronically, [facility], Partialfill upon patient request if the prescription is... Start Date: 10/22/21 Stop Date: 01/15/23 Status: OrderedR aircast ankle-stirrup support brace R aircast ankle-stirrup support brace, See Instructions, # 1 each, Refills 0, Tot. Refills 0, Maintenance, Dx: R inversion ankle sprain s93.409a, 01/06/22 12:31:00 EDT, Supply Start Date: 01/06/22 Status: JfpstofJdw-D-Mxdb oral tablet 1 tablet, By Mouth, Daily, # 90 tablet, 9 Refills, [facility], 28, TAKE 1 TABLET BY MOUTH ONCE A DAY, 174, cm, 07/14/21 8:16:00 EST, Height, 81, kg, 02/27/21 14:06:00 EDT, Dry Weight Start Date: 07/22/21 Status: OrderedtraZODone 50 mg oral tablet See Instructions, TAKE 1 TO 2 TABLETS BY MOUTH AT BEDTIME (ONE DOSE IN VIAL), # 60 tablet, Refills 0, Instructions Replace Required Details, Route to Pharmacy Electronically, [facility], 175, cm, 01/06/22 10:34:00 EDT, Height, 78.3, kg, ... Start Date: 01/30/22 Status: OrderedtraZODone 50 mg oral tablet See Instructions, TAKE 2-3 TABLETS BY MOUTH AT BEDTIME (ONE DOSE IN VIAL), # 90 tablet, Refills 5, Tot. Refills 5, Maintenance, 12/26/21 9:21:00 EDT, Instructions Replace Required Details, Route to Pharmacy Electronically, [facility], 170, cm,... Start Date: 12/26/21 Status: OrderedVitamin B1 100 mg oral tablet 1, tablet, By Mouth, Daily, # 90 tablet, Refills 0, Route to Pharmacy Electronically, [facility], 170, cm, 11/12/21 10:02:00 EDT, Height, 78, kg, 11/04/21 12:03:00 EDT, Dry Weight Start Date: 12/24/21 Status: OrderedXifaxan 550 mg oral tablet 1 tablet, By Mouth, 2 times a day, # 60 tablet, 2 Refills, [facility], 175, cm, 01/06/22 10:34:00 [...] Active Vitamin D insufficiency(Confirmed) 08/16/12 Active 1refer [id number] HEP C,b; immune HEP A,3r/o rngmlcflynlysypo7dslkxr2ngzpfsfy counseling6? [id number] RF ANCA,normal immunofixation,8lumbar puncture November 2011,neg lymenormal IGA neg SSA ,SSBnormal methylmalonic acid homocyseine9 legally blind;[id number] echo November 2014 Social History Social History Type Response Smoking Status 10 or more cigarettes (1/2 p ack or more)/day in last 30 days entered on: 02/04/19 Sex
--- OUTSIDE RECORDS SUMMARY | 2022-03-14 03:14 | XMS_ITS | Continuity of Care Document ---
:1975 Author Organization [facility] Address [address] [place] [address]- Care Team Providers Name Role Phone Jany Baig DO Primary Care Physician [place] [facility] [place] 10[place] [facility] [address] [place] [address]- Attending Physician: Zeferino Medina DO Referring Physician: Jany Baig DO Allergies, Adverse [...] in the past and had GI side [id number] advised not to take d/t underlying liver [...] acel (oldterm) 08/02/12 Given 1Result Comment: [04/29/2017] [id number] Note: [id number] Note: 3 [id number] Note: #2 Medications amLODIPine 5 mg oral tablet 5 mg, 1, tablet, By Mouth, Daily, # 30 tablet, Refills 5, Tot. Refills 5, Maintenance, 10/03/21 17:31:00 EDT, Route to Pharmacy Electronically, [facility]/pharmacy #[id number], Partial fill upon patient request if the prescription is for a schedule II opioid drug.... Start Date: 10/03/21 Status: Orderedamoxicillin-clavulanate 875 mg-125 mg oral tablet 1 tablet, By Mouth, Every 12 hours, for 10 days, # 20 tablet, 0 Refills, Acute 10/20/21 16:25:00 EDT, 10/10/21 16:25:00 EDT, Tablet, [facility]/pharmacy #[id number], Partial fill upon patient request if the prescription is for a schedule II opioid drug., 175, cm,... Start Date: 10/10/21 Stop Date: 10/20/21 Status: OrderedCo Q-10 100 mg oral capsule 1 capsule, By Mouth, 4 times a day, # 120 capsule, 6 Refills, [facility], 174, cm, 02/27/21 15:17:00 EDT, Height, 81, kg, 02/27/21 14:06:00 EDT, Dry Weight Start Date: 07/08/21 Status: Orderedfluticasone 50 mcg/inh nasal spray See Instructions, USE 1 SPRAY INTO EACH NOSTRIL TWICE A DAY, # 16 Gm, 5 Refills, [facility],30, USE 1 SPRAY INTO EACH NOSTRIL TWICE A DAY, 174, cm, 07/14/21 8:16:00 EST, Height, 81, kg, 02/27/21 14:06:00 EDT, Dry Weight Start Date: 08/04/21 Status: Orderedfolic acid 1 mg oral tablet 1 mg, 1, tablet, By Mouth, Daily, # 30 tablet, Refills 11, Tot. Refills 11, Maintenance, 10/03/21 17:29:00 EDT, Route to Pharmacy Electronically, [facility]/pharmacy #[id number], Partial fill upon patient request if the prescription is for a schedule II opioid remedios... Start Date: 10/03/21 Stop Date: 09/28/22 Status: Orderedgabapentin 300 mg oral capsule 300 mg, 1, capsule, By Mouth, 3 times a day, # 90 capsule, Refills 3, Tot. Refills 3, Maintenance, 10/03/21 17:32:00 EDT, [id number] fill upon patientrequest if the prescription is for a schedule II... Start Date: 10/03/21 Status: OrderedhydrOXYzine hydrochloride 25 mg oral tablet 1 TO 2 TABLETS, By Mouth, 3 times a day, PRN NEEDED FOR ANXIETY (VIAL), # 60 tablet, 0 Refills, [facility], 174, cm, 08/14/21 14:21:00 EST, Height, 81, kg, 02/27/21 14:06:00 EDT, Dry Weight Start Date: 08/18/21 Status: Orderedlactulose 10 gm/15 ml oral syrup See Instructions, TAKE 30ML BY MOUTH THREE TIMES DAILY NEEDED TO ACHEIVE 3-4 BOWL MOVEMENTS PER DAY, # 3,000 mL, 10 Refills, [facility], 30, TAKE 30ML BY MOUTH THREE [...] 10/03/21 17:28:00 EDT, [id number] Partial fill upon patient request if the prescription is for a schedule II opi... Start Date: 10/03/21 Stop Date: 12/02/21 Status: Orderedmagnesium oxide 400 mg oral tablet 1 tablet = 400 mg, By Mouth, 2 times a day, for 30 days, # 60 tablet, 5 Refills, Acute 04/01/22 17:28:00 EDT, 10/03/21 17:28:00 EDT, Tablet, [facility]/pharmacy #[id number], Partial fill upon patient request if theprescription is for a schedule II opioid drug., 1... Start Date: 10/03/21 Stop Date: 04/01/22 Status: OrderedMelatonin 3 mg oral tablet 1 tablet, By Mouth, Daily at bedtime, PRN NEEDED FOR INSOMNIA (PACKAGE IN TRAY), # 60 tablet, 5 Refills, Maintenance, 06/02/21 16:17:00 EST, [facility], 28, 1 tablet By Mouth Daily [...] 0 Refills, Maintenance, 10/03/21 17:27:00 EDT, Tablet, [facility]/pharmacy #[id number], Partial fill upon patient request if the prescription is for a schedule II opioid drug.,... Start Date: 10/03/21 Stop Date: 11/02/21 Status: HdtboypCyo-P-Xork oral tablet 1 tablet, By Mouth, Daily, # 90 tablet, 9 Refills, [facility], 28, TAKE 1 TABLET BY MOUTH ONCE A DAY, 174, cm, 07/14/21 8:16:00 EST, Height, 81, kg, 02/27/21 14:06:00 EDT, Dry Weight Start Date: 07/22/21 Status: OrderedtraZODone 50 mg oral tablet See Instructions, TAKE 1 TO 2 TABLETS BY MOUTH AT BEDTIME (ONE DOSE IN VIAL), # 60 tablet, Refills 0, Instructions Replace Required Details, Route to Pharmacy Electronically, [facility], 174, cm, 08/14/21 14:21:00 EST, Height, 81, kg, 02/27/21... Start Date: 08/18/21 Status: OrderedVitamin B1 100 mg oral tablet 1, tablet, By Mouth, Daily, # 90 tablet, Refills 1, Route to Pharmacy Electronically, [facility], 174, cm, 02/27/21 15:17:00 EDT, Height, [...] Active Vitamin D insufficiency(Confirmed) 08/16/12 Active 1refer [id number] HEP C,b; immune HEP A,3r/o iqsvpmalnmppdlgs3sponun4qmmxmhdm counseling6? hsprmat7yml RF ANCA,normal immunofixation,8lumbar puncture November 2011,neg lymenormal IGA neg SSA ,SSBnormal methylmalonic acid homocyseine9 legally blind;[id number] echo November 2014 Vital Signs Most recent to oldest [Reference Range]: 1 Height 175 cm (10/10/21 4:04 PM) Oxygen Saturation [94-100 %] 97 % (10/10/21 4:04 PM) Pulse Rate [55-90 bpm] 99 bpm *H* (10/10/21 4:04 PM) Blood Pressure [90-138/55-84 mm Hg] 132/83 mm Hg (10/10/21 4:04 PM) Temperature [96.8-100.4 DegF] 97.2 DegF (10/10/21 4:04 PM) Mode of Delivery (Oxygen) Room air (10/10/21 4:04 PM) Blood pressure sites Arm, right (10/10/21 4:04 PM) Temperature Route Temporal (10/10/21 4:04 PM) Social History Social History Type Response Smoking Status 10 or more cigarettes (1/2 p ack or more)/day in last 30 days entered on: 02/04/19 Sex
--- OUTSIDE RECORDS SUMMARY | 2022-03-14 03:14 | XMS_ITS | Continuity of Care Document ---
:1975 Author Organization [facility] Address [address] [place] [address]- Care Team Providers Name Role Phone Jany Baig DO Primary Care Physician Encounter [facility] [place] Date(s): 06/11/21 - 07/11/21 [facility] [address] [place] [address]- Allergies, Adverse Reactions, Alerts Substance Reaction Severity Status ibuprofen1 Hx of GI Bleed Active aspirin2 Hx GI Bleed Active Tylenol3 Cirrhosis Active NSAIDs Active 1pt advised not to take NSAIDs or Tylenol due to underlying liver disease. Also had GI side effects when took too much aspirin in the past.2pt took too much in the past and had GI side aysbtir2ir advised not to take d/t underlying liver [...] acel (oldterm) 08/02/12 Given 1Result Comment: [04/29/2017] [id number] Note: [id number] Note: 3 [id number] Note: #2 Medications baclofen 10 mg oral tablet 1, tablet, By Mouth, 3 times a day, # 90 tablet, Refills 0, Route to Pharmacy Electronically, [facility], 174, cm, 02/27/21 15:17:00 EDT, Height, 81, kg, 02/27/21 14:06:00 EDT, Dry Weight Start Date: 07/08/21 Status: Orderedchantix 1mg tablet 1 tablet, By Mouth, 2 times a day, # 56 tablet, 0 Refills, Acute, 11/22/20 16:13:00 EDT, [facility], 178, cm, 11/12/20 15:32:00 EDT, Height, 84.9, kg, 08/31/20 1:07:00 EDT, Dry Weight Start Date: 11/22/20 Status: OrderedCo Q-10 100 mg oral capsule 1 capsule, By Mouth, 4 times a day, # 120 capsule, 6 Refills, [facility], 174, cm, 02/27/21 15:17:00 EDT, Height, 81, kg, 02/27/21 14:06:00 EDT, Dry Weight Start Date: 07/08/21 Status: Orderedfluticasone 50 mcg/inh nasal spray See Instructions, USE 1 SPRAY INTO EACH NOSTRIL TWICE A DAY, # 16 Gm, 5 Refills, Maintenance, [facility], 30, USE 1 SPRAY INTO EACH NOSTRIL TWICE A DAY, 178, cm, 01/07/21 17:59:00 EDT, Height, 81.4, kg, 12/03/20 13:52:00 EDT, Dry Weight Start Date: 01/17/21 Status: Orderedgabapentin 600 mg oral tablet 1 tablet, By Mouth, 4 times a day, # 120 tablet, 0 Refills, [facility], 174, cm, 02/27/21 15:17:00 EDT, Height, 81, kg, 02/27/21 14:06:00 EDT, Dry Weight Start Date: 07/08/21 Status: OrderedhydrOXYzine hydrochloride 25 mg oral tablet 1 TO 2 TABLETS, By Mouth, 3 times a day, PRN NEEDED FOR ANXIETY (VIAL), # 60 tablet, 0 Refills, [facility], 174, cm, 02/27/21 15:17:00 EDT, Height, 81, kg, 02/27/21 14:06:00 EDT, Dry Weight Start Date: 07/08/21 Status: Orderedlactulose 10 gm/15 ml oral syrup See Instructions, TAKE 30ML BY MOUTH THREE TIMES DAILY NEEDED TO ACHEIVE 3-4 BOWL MOVEMENTS PER DAY, # 3,000 mL, 10 Refills, [facility], 30, TAKE 30ML BY MOUTH THREE TIMES DAILY NEEDED TOACHEIVE 3-4 BOWL MOVEMENTS PER DAY, 174, cm, 02/12... Start Date: 07/02/21 Status: OrderedMelatonin 3 mg oral tablet 1 tablet, By Mouth, Daily at bedtime, PRN NEEDED FOR INSOMNIA (PACKAGE IN TRAY), # 60 tablet, 5 Refills, Maintenance, 06/02/21 16:17:00 EST, [facility], 28, 1 tablet By Mouth [...] Maintenance, 10/06/19 15:57:00 EDT, Tablet, [facility], 175, cm, 08/24/19 14:14:00 EDT, Height, 81.2, kg, 02/04/19 1:40:00 EDT, Dry Weight Start Date: 10/06/19 Status: Orderedsertraline 50 mg oral tablet 1 tablet, By Mouth, Daily, TAKE ALONG WITH A 100MG TABLET to equal 150mg daily, # 90 tablet, 1 Refills, Maintenance, 10/06/19 15:57:00 EDT, [facility], 175, cm, 08/24/19 14:14:00 EDT, Height, 81.2, kg, 02/04/19 1:40:00 EDT, Dry Weight Start Date: 10/06/19 Status: Orderedsildenafil 50 mg oral tablet 1 tablet = 50 mg, By Mouth, Daily, PRN erectile dysfunction, 1 hour before sexual activity, # 6 tablet, 5 Refills, Maintenance, 03/11/20 14:37:00 EDT, Tablet, [facility]/pharmacy #[id number], 175, cm, 08/24/19 14:14:00 EDT, Height, 81.2, kg, 02/04/19 1:40:00 EDT,... Start Date: 03/11/20 Status: KjuhnmjDxj-G-Ezgo oral tablet See Instructions, TAKE 1 TABLET BY MOUTH ONCE A DAY, # 30 tablet, 10 Refills, Maintenance, [facility], 28, TAKE 1 TABLET BY MOUTH ONCE A DAY, 175, cm, 04/02/20 0:35:00 EDT, Height, 100, kg, 04/02/20 0:35:00 EDT, Dry Weight Start Date: 07/18/20 Status: Orderedtranexamic acid 650 mg oral tablet 1 tablet = 650 mg, By Mouth, Daily, # 21 tablet, 0 Refills, Maintenance, 10/22/20 17:52:00 EDT, Tablet, [facility]/pharmacy #[id number], Partial fill upon patient request if the prescription is for a schedule II opioid drug., 178, cm, 10/22/20 13:17:00 EDT, Height... Start Date: 10/22/20 Status: OrderedtraZODone 50 mg oral tablet See Instructions, TAKE 1 TO 2 TABLETS BY MOUTH AT BEDTIME (ONE DOSE IN VIAL), # 60 tablet, Refills 0, Instructions Replace Required Details, Route to Pharmacy Electronically, [facility], 174, cm, 02/27/21 15:17:00 EDT, Height, 81, kg, 02/27/21... Start Date: 07/10/21 Status: OrderedtraZODone 50 mg oral tablet See Instructions, TAKE 1 TO 2 TABLETS BY MOUTH AT BEDTIME (ONE DOSE IN VIAL), # 60 tablet, Refills 5, Instructions Replace Required Details, Route to Pharmacy Electronically, [facility], 174, cm, 02/11/21 12:09:00 EDT, Height, 86.6, kg, ... Start Date: 02/15/21 Status: OrderedVitamin B1 100 mg oral tablet 1, tablet, By Mouth, Daily, # 90 tablet, Refills 1, Route to Pharmacy Electronically, [facility], 174, cm, 02/27/21 15:17:00 EDT, Height, 81, kg, 02/27/21 14:06:00 EDT, Dry Weight Start Date: 06/16/21 Status: OrderedXifaxan 550 mg oral tablet 1 tablet, By Mouth, 2 times a day, # 60 tablet, 0 Refills, Maintenance, 04/16/20 14:45:00 EST, [facility]/pharmacy #[id number], 175, cm, 04/02/20 0:35:00 EDT, Height, [...] Active Vitamin D insufficiency(Confirmed) 08/16/12 Active 1refer [id number] HEP C,b; immune HEP A,3r/o [id number] counseling6? [id number] RF ANCA,normal immunofixation,8lumbar puncture November 2011,neg lymenormal IGA neg SSA ,SSBnormal methylmalonic acid homocyseine9 legally blind;[id number] echo November 2014 Social History Social History Type Response Smoking Status 10 or more cigarettes (1/2 p ack or more)/day in last 30 days entered on: 02/04/19 Sex Male
--- OUTSIDE RECORDS SUMMARY | 2022-03-14 03:14 | XMS_ITS | Continuity of Care Document ---
:[address] [facility] Address [address] [place] [address]- Care Team Providers Name Role Phone Jany Baig DO Primary Care Physician Encounter [facility] Date(s): 09/04/19 - 09/11/19 [facility] [address] [place] [address]- [facility] Attending Physician: Jany Baig DO Allergies, Adverse [...] in the past and had GI side rcicall0br advised not to take d/t underlying liver [...] acel (oldterm) 08/02/12 Given 1Result Comment: [04/29/2017] [id number] Note: [id number] Note: 3 [id number] Note: #2 Medications chantix 1mg tablet 1 tablet = 1 mg, By Mouth, 2 times a day, with a full glass of water, continue for total of 12 wks, # 56 tablet, 1 Refills, Maintenance, 08/24/19 14:54:00 EDT, [facility], [facility], [facility], cm, 08/24/19 14:14:00 EDT, Height, 81.2, kg, 02/04/19 1:40... Start Date: 08/24/19 Status: OrderedCo Q-10 100 mg oral capsule 1 capsule, By Mouth, 3 times a day, # 90 capsule, 11 Refills, Maintenance, 06/16/19 12:41:00 EST, [facility], [facility], cm, 02/06/19 7:59:00 EDT, Height, 81.2, kg, 02/04/19 1:40:00 EDT, Dry Weight Start Date: 06/16/19 Status: OrderedD 1000 IU oral tablet 1 tablet = 1,000 International_Units, By Mouth, Daily, # 30 tablet, 0 Refills, Maintenance, 06/26/2019:34:00 EST, Tablet Start Date: 06/26/19 Status: OrderedEngerix-B 20 mcg/mL intramuscular suspension = 20 mcg, Intramuscular, Every 30 days, rpt at 1 and 6 months, # 1 mL, 2 Refills, Maintenance, 09/04/19 13:01:00 EDT, Suspension, [facility] #[id number], 175, cm, 08/24/19 14:14:00 EDT, Height, 81.2, kg, 02/04/19 1:40:00 EDT, Dry Weight Start Date: 09/04/19 Status: Orderedfluticasone 50 mcg/inh nasal spray See Instructions, SPRAY 1 SPRAY INTO EACH NOSTRIL TWICE A DAY, # 16 Gm, 3 Refills, [facility], 30, SPRAY 1 SPRAY INTO EACH NOSTRIL TWICE A DAY, 175, cm, 02/06/19 7:59:00 EDT, Height, 81.2, kg, 02/04/19 1:40:00 EDT, Dry Weight Start Date: 06/16/19 Status: Orderedfolic acid 1 mg oral tablet 1 mg, 1, tablet, By Mouth, Daily, for 30 days, # 30 tablet, Refills 1, Tot. Refills 1, Physician Stop 11/04/19 12:58:00 EDT, 09/05/19 12:58:00 EDT, Route to Pharmacy Electronically, [id number], 175, cm, 08/24/19 14:14:00 EDT, Height,... Start Date: 09/05/19 Stop Date: 11/04/19 Status: Orderedfolic acid 1 mg oral tablet 1, tablet, By Mouth, Daily, # 30 tablet, Refills 1, Tot. Refills 0, Maintenance, 05/29/19 17:32:04 EST, Instructions Replace Required Details, Route to Pharmacy Electronically, [facility], 175,cm, 02/06/19 7:59:26 EDT, Height, 81.2, kg, [...] 20:34:00 EST, Tablet Start Date: 06/26/19 Status: OrderedhydrOXYzine hydrochloride 25 mg oral tablet See Instructions, TAKE 1 TO 2 TABLETS BY MOUTH THREE TIMES DAILY NEEDED FOR ANXIETY, # 60 tablet,1 Refills, Acute, [facility], 175, cm, 06/20/19 12:00:00 EST, Height, 81.2, kg, 02/04/19 1:40:00 EDT, Dry Weight Start Date: 07/12/19 Status: Orderedlactulose 10 gm/15 ml oral syrup 30 mL = 20 Gm, By Mouth, 3 times a day, PRN Other, for 30 days, PRN to acheive 3-4 BMs per day, # 3,000 mL, 11 Refills, Acute 06/16/20 12:33:00 EST, 06/22/19 12:33:00 EST, Syrup, [facility], resent from 10/04/17, 30 mL By [...] Date: 06/26/19 Status: Orderedmupirocin 2% topical ointment 1 application, Topically, 3 times a day, apply a thin film, # 15 Gm, 0 Refills, Maintenance, 08/24/19 18:00:00 EDT, Ointment, [facility], 1 application Topically 3 times a day,Instr:apply a thin film, 175, cm, 08/24/19 14:14:00 EDT, Height, 81... Start Date: 08/24/19 Status: Orderednaltrexone 50 mg oral tablet 1 tablet = 50 mg, By Mouth, Daily, through clean slate, # 30 tablet, 0 Refills, Maintenance, 05/10/18 9:30:24 EST, Tablet Start Date: 05/10/18 Status: Orderedpantoprazole 40 mg oral delayed release tablet 1 tablet, By Mouth, 2 times a day, # 60 tablet, 1 Refills, Maintenance, 07/12/19 12:04:00 EST, 175, cm, 06/20/19 12:00:00 EST, Height, 81.2, kg, 02/04/19 1:40:00 EDT, Dry Weight Start Date: 07/12/19 Status: Orderedsertraline 100 mg oral tablet 1 tablet = 100 mg, By Mouth, Daily, combine with 50mg tab to equal 150mg daily, # 90 tablet, 0 Refills, Maintenance, 06/26/19 20:32:00 EST, Tablet, [facility], 175, cm, 06/20/19 12:00:00 EST, Height, 81.2, kg, 02/04/19 1:40:00 EDT, Dry Weight Start Date: 06/26/19 Status: Orderedsertraline 50 mg oral tablet 1 tablet, By Mouth, Daily, TAKE ALONG WITH A 100MG TABLET to equal 150mg daily, # 90 tablet, 0 Refills, Maintenance, 06/22/19 12:32:00 EST, [facility], 175, cm, 06/20/19 12:00:00 EST, Height, 81.2, kg, 02/04/19 1:40:00 EDT, Dry Weight Start Date: 06/22/19 Status: OputbmuQbb-C-Wjqg oral tablet 1 tablet, By Mouth, Daily, # 30 tablet, 11 Refills, Maintenance, 06/16/19 12:42:00 EST, [facility], 30, TAKE 1 TABLET BY [...] TO 2 TABLETS BY MOUTH AT BEDTIME, [facility] Start Date: 01/02/19 Status: OrderedVitamin B1 100 mg oral tablet 1, tablet, By Mouth, Daily, # 90 tablet, Refills 3, Tot. Refills 0, Acute, 06/16/19 12:42:00 EST, Route to Pharmacy Electronically, [facility], 175, cm, 02/06/19 7:59:00 EDT, Height, 81.2, kg, 02/04/19 1:40:00 EDT, Dry Weight Start Date: 06/16/19 Status: OrderedXifaxan 550 mg oral tablet 1 tablet, By Mouth, 2 times a day, # 60 tablet, 0 Refills, Maintenance, 08/14/19 16:54:00 EST, [facility], 175, cm, 06/20/19 12:00:00 EST, Height, 81.2, kg, 02/04/19 1:40:00 EDT, Dry Weight Start Date: 08/14/19 Status: Ordered Problem List Condition Effective Dates [...] Active Vitamin D insufficiency(Confirmed) 08/16/12 Active 1refer [id number] HEP C,b; immune HEP A,3r/o tlqbwmcphspjkpuv3vxeedp0zroxahyh counseling6? [id number] RF ANCA,normal immunofixation,8lumbar puncture November 2011,neg lymenormal IGA neg SSA ,SSBnormal methylmalonic acid homocyseine9 legally blind;[id number] echo November 2014 Social History Social History Type Response Smoking Status 10 or more cigarettes (1/2 p ack or more)/day in last 30 days entered on: 02/04/19 Sex
--- OUTSIDE RECORDS SUMMARY | 2022-03-14 03:14 | XMS_ITS | Continuity of Care Document ---
:1975 Author Organization [facility] Address [address] [place] [address]- Care Team Providers Name Role Phone Jany Baig DO Primary Care Physician [place] [facility] [place] 12/10/20 - 01/09/21 [facility] [address] [place] [address]- Allergies, Adverse Reactions, Alerts Substance Reaction Severity Status ibuprofen1 Hx of GI Bleed Active aspirin2 Hx GI Bleed Active Tylenol3 Cirrhosis Active NSAIDs Active 1pt advised not to take NSAIDs or Tylenol due to underlying liver disease. Also had GI side effects when took too much aspirin in the past.2pt took too much in the past and had GI side [id number] advised not to take d/t underlying liver [...] 08/02/12 Given 1Admin Note: #22Result Comment: [04/29/2017] [id number] Note: [id number] Admin Note: 3 RDINJ Medications baclofen 10 mg oral tablet 1, tablet, By Mouth, 3 times a day, # 90 tablet, Refills 0, Tot. Refills 0, Maintenance, 12/25/20 8:36:00 EDT, Route to Pharmacy Electronically, [facility], 178, cm, 12/03/20 13:52:00 EDT, Height, 81.4, kg, 12/03/20 13:52:00 EDT, Dry Weight Start Date: 12/25/20 Status: Orderedchantix 1mg tablet 1 tablet, By Mouth, 2 times a day, # 56 tablet, 0 Refills, Acute, 11/22/20 16:13:00 EDT, [facility], 178, cm, 11/12/20 15:32:00 EDT, Height, 84.9, kg, 08/31/20 1:07:00 EDT, Dry Weight Start Date: 11/22/20 Status: OrderedCo Q-10 100 mg oral capsule See Instructions, TAKE 1 CAPSULE BY MOUTH FOUR TIMES DAILY, # 120 capsule, 7 Refills, Maintenance, [facility], 178, cm, 10/22/20 13:17:00 EDT, Height, 84.9, kg, 08/31/20 1:07:00 EDT, Dry Weight Start Date: 11/01/20 Status: OrderedCo Q-10 100 mg oral capsule 1 capsule, By Mouth, 4 times a day, # 120 capsule, 11 Refills, Maintenance, 11/21/19 10:36:00 EDT, [facility]/pharmacy #[id number], 175, cm, 08/24/19 14:14:00 EDT, Height, 81.2, kg, 02/04/19 1:40:00 EDT, Dry Weight Start Date: 11/21/19 Stop Date: 11/15/20 Status: Orderedfluticasone 50 mcg/inh nasal spray See Instructions, SPRAY 1 SPRAY INTO EACH NOSTRIL TWICE A DAY, # 16 Gm, 5 Refills, 07/09/20 11:38:00EST, [facility], 30, SPRAY 1 SPRAY INTO EACH NOSTRIL TWICE A DAY, 175, cm, 04/02/20 0:35:00 EDT, Height, 100, kg, 04/02/20 0:35:00 EDT, Dry We... Start Date: 07/09/20 Status: Orderedgabapentin 600 mg oral tablet 1 tablet, By Mouth, 4 times a day, # 120 tablet, 0 Refills, Maintenance, 12/25/20 8:36:00 EDT, [facility], 178, cm, 12/03/20 13:52:00 EDT, Height, 81.4, kg, 12/03/20 13:52:00 EDT, Dry Weight Start Date: 12/25/20 Status: OrderedhydrOXYzine hydrochloride 25 mg oral tablet 1 TO 2 TABLETS, By Mouth, 3 times a day, PRN NEEDED FOR ANXIETY (VIAL), # 60 tablet, 3 Refills, Maintenance, 10/07/20 16:49:00 EDT, [facility], 178, cm, 08/31/20 11:25:00 EDT, Height, 84.9, kg, 08/31/20 1:07:00 EDT, Dry Weight Start Date: 10/07/20 Status: OrderedKeppra 500 mg oral tablet 1 tablet = 500 mg, By Mouth, 2 times a day, # 14 tablet, 0 Refills, Maintenance, 11/01/20 11:59:00 EDT, Tablet, [facility] 3, Partial fill upon patient request if the prescription is for a schedule II opioid drug., 178, cm, 10/22/20 13:17:... Start Date: 11/01/20 Stop Date: 11/08/20 Status: Orderedmelatonin 3 mg oral tablet 1 tablet = 3 mg, By Mouth, Daily at bedtime, PRN for insomnia, # 60 tablet, 4 Refills, Maintenance, 07/18/20 17:30:00 EST, Tablet, [facility], 175, cm, 04/02/20 0:35:00 EDT, [...] EDT, Tablet, [facility], 175, cm, 08/24/19 14:14:00 EDT, Height, 81.2, kg, 02/04/19 1:40:00 EDT, Dry Weight Start Date: 10/06/19 Status: Orderedsertraline 50 mg oral tablet 1 tablet, By Mouth, Daily, TAKE ALONG WITH A 100MG TABLET to equal 150mg daily, # 90 tablet, 1 Refills, Maintenance, 10/06/19 15:57:00 EDT, [facility], 175, cm, 08/24/19 14:14:00 EDT, Height, 81.2, kg, 02/04/19 1:40:00 EDT, Dry Weight Start Date: 10/06/19 Status: Orderedsildenafil 50 mg oral tablet 1 tablet = 50 mg, By Mouth, Daily, PRN erectile dysfunction, 1 hour before sexual activity, # 6 tablet, 5 Refills, Maintenance, 03/11/20 14:37:00 EDT, Tablet, [facility]/pharmacy #[id number], 175, cm, 08/24/19 14:14:00 EDT, Height, 81.2, kg, 02/04/19 1:40:00 EDT,... Start Date: 03/11/20 Status: BqetqksTvu-Q-Ppom oral tablet See Instructions, TAKE 1 TABLET BY MOUTH ONCE A DAY, # 30 tablet, 10 Refills, Maintenance, [facility], 28, TAKE 1 TABLET BY MOUTH ONCE A DAY, 175, cm, 04/02/20 0:35:00 EDT, Height, 100, kg, 04/02/20 0:35:00 EDT, Dry Weight Start Date: 2/4/21 Status: OrderedtraMADol 50 mg oral tablet 1 [...] Refills, Maintenance, 10/22/20 17:52:00 EDT, Tablet, [facility]/pharmacy #[id number], Partial fill upon patient request if [...] Pharmacy Electronically, [facility], 178, cm, 10/22/20... Start Date: 11/01/20 Status: OrderedVitamin B1 100 mg oral tablet 1, tablet, By Mouth, Daily, # 90 tablet, Refills 2, Tot. Refills 0, Acute, 09/05/20 17:32:00 EDT, Route to Pharmacy Electronically, [facility], 178, cm, 08/31/20 11:25:00 EDT, Height, 84.9, kg,08/31/20 1:07:00 EDT, Dry Weight Start Date: 09/05/20 Status: OrderedXifaxan 550 mg oral tablet 1 tablet, By Mouth, 2 times a day, # 60 tablet, 0 Refills, Maintenance, 04/16/20 14:45:00 EST, [facility]/pharmacy #[id number], 175, cm, 04/02/20 0:35:00 EDT, Height, [...] Active Vitamin D insufficiency(Confirmed) 08/16/12 Active 1refer lydkq4yep HEP C,b; immune HEP A,3r/o qiekxxtsgiycdmrg0gkjltk7glvkwock counseling6? [id number] RF ANCA,normal immunofixation,8lumbar puncture November 2011,neg lymenormal IGA neg SSA ,SSBnormal methylmalonic acid homocyseine9 legally blind;[id number] echo November 2014 Social History Social History Type Response Smoking Status 10 or more cigarettes (1/2 p ack or more)/day in last 30 days entered on: 02/04/19 Sex
--- OUTSIDE RECORDS SUMMARY | 2022-03-14 03:14 | XMS_ITS | Continuity of Care Document ---
:1975 Author Organization [facility] Address [address] [place] [address]- Care Team Providers Name Role Phone Jany Baig DO Primary Care Physician Encounter [facility] Date(s): 10/14/21 - 11/13/21 [facility] [address] [place] [address]- Allergies, Adverse Reactions, Alerts Substance Reaction Severity Status ibuprofen1 Hx of GI Bleed Active aspirin2 Hx GI Bleed Active Tylenol3 Cirrhosis Active NSAIDs Active 1pt advised not to take NSAIDs or Tylenol due to underlying liver disease. Also had GI side effects when took too much aspirin in the past.2pt took too much in the past and had GI side [id number] advised not to take d/t underlying liver [...] acel (oldterm) 08/02/12 Given 1Result Comment: [04/29/2017] [id number] Note: [id number] Note: 3 [id number] Note: #2 Medications amLODIPine 5 mg oral tablet 5 mg, 1, tablet, By Mouth, Daily, # 30 tablet, Refills 5, Tot. Refills 5, Maintenance, 10/21/21 10:15:00 EDT, Route to Pharmacy Electronically, [facility], Partial fill upon patient request if the prescription is for a schedule II opioid drug.... Start Date: 10/21/21 Status: OrderedCo Q-10 100 mg oral capsule 1 capsule, By Mouth, 4 times a day, # 120 capsule, 6 Refills, [email or web address], 174, cm, 02/27/21 15:17:00 EDT, Height, 81, kg, 02/27/21 14:06:00 EDT, Dry Weight Start Date: 07/08/21 Status: Orderedfluticasone 50 mcg/inh nasal spray See Instructions, USE 1 SPRAY INTO EACH NOSTRIL TWICE A DAY, # 16 Gm, 5 Refills, [facility],30, USE 1 SPRAY INTO EACH NOSTRIL TWICE A DAY, 174, cm, 07/14/21 8:16:00 EST, Height, 81, kg, 02/27/21 14:06:00 EDT, Dry Weight Start Date: 08/04/21 Status: Orderedfolic acid 1 mg oral tablet 1 mg, 1, tablet, By Mouth, Daily, # 90 tablet, Refills 4, Tot. Refills 4, Maintenance, 10/27/21 10:40:00 EDT, Route to Pharmacy Electronically, [facility], Partial fill upon patient request if the prescription is for a schedule II opioid drug.... Start Date: 10/27/21 Stop Date: 01/20/23 Status: Orderedgabapentin 300 mg oral capsule 300 mg, 1, capsule, By Mouth, Daily at bedtime, note dose change, # 90 capsule, Refills 4, Tot. Refills 4, Maintenance, 10/27/21 10:39:00 EDT, Route to Pharmacy Electronically, [facility], Partial fill upon patient request if the prescription... Start Date: 10/27/21 Stop Date: 01/20/23 Status: OrderedhydrOXYzine hydrochloride 25 mg oral tablet 1 TO 2 TABLETS, By Mouth, 3 times a day, PRN NEEDED FOR ANXIETY (VIAL), # 60 tablet, 0 Refills, [facility], 175, cm, 10/27/21 10:11:00 EDT, Height, 87, kg, 09/27/21 21:30:00 EDT, Dry Weight Start Date: 10/29/21 Status: Orderedlactulose 10 gm/15 ml oral syrup See Instructions, TAKE 30ML BY MOUTH THREE TIMES DAILY NEEDED TO ACHEIVE 3-4 BOWL MOVEMENTS PER DAY, # 3,000 mL, 10 Refills, [facility], 30, TAKE 30ML BY MOUTH THREE TIMES DAILY NEEDED TOACHEIVE 3-4 BOWL MOVEMENTS PER DAY, 174, cm, 02/12... Start Date: 07/02/21 Status: OrderedLasix 40 mg oral tablet 40 mg, 1, tablet, By Mouth, 2 times a day, # 60 tablet, Refills 1, Tot. Refills 1, Maintenance, 10/21/21 10:15:00 EDT, Route to Pharmacy Electronically, [facility], Partial fill upon patient request if the prescription is for a schedule II opi... Start Date: 10/21/21 Stop Date: 12/20/21 Status: Orderedmagnesium oxide 400 mg oral tablet 1 tablet, By Mouth, 2 times a day, # 60 tablet, 0 Refills, [facility], 175, cm, 10/27/21 10:11:00 EDT, Height, 87, kg, 09/27/21 21:30:00 EDT, Dry Weight Start Date: 10/29/21 Status: OrderedMelatonin 3 mg oral tablet 1 tablet, By Mouth, Daily at bedtime, PRN NEEDED FOR INSOMNIA (PACKAGE IN TRAY), # 60 tablet, 5 Refills, Maintenance, 06/02/21 16:17:00 EST, [facility], 28, 1 tablet By Mouth [...] 10/22/21 11:42:00 EDT, Route to Pharmacy Electronically, [facility], Partialfill upon patient request if the prescription is... Start Date: 10/22/21 Stop Date: 01/15/23 Status: GrqbbokBpi-Z-Rumw oral tablet 1 tablet, By Mouth, Daily, # 90 tablet, 9 Refills, [facility], 28, TAKE 1 TABLET BY MOUTH ONCE A DAY, 174, cm, 07/14/21 8:16:00 EST, Height, 81, kg, 02/27/21 14:06:00 EDT, Dry Weight Start Date: 07/22/21 Status: OrderedtraZODone 50 mg oral tablet See Instructions, TAKE 1 TO 2 TABLETS BY MOUTH AT BEDTIME (ONE DOSE IN VIAL), # 60 tablet, Refills 0, Instructions Replace Required Details, Route to Pharmacy Electronically, [facility], 175, cm, 10/27/21 10:11:00 EDT, Height, 87, kg, 09/27/21... Start Date: 10/29/21 Status: OrderedVitamin B1 100 mg oral tablet 1, tablet, By Mouth, Daily, # 90 tablet, Refills 1, Route to Pharmacy Electronically, [facility], 174, cm, 02/27/21 15:17:00 EDT, Height, 81, kg, 02/27/21 14:06:00 EDT, Dry Weight Start Date: 06/16/21 Status: OrderedXifaxan 550 mg oral tablet 1 tablet, By Mouth, 2 times a day, # 60 tablet, 1 Refills, [facility], 170, cm, 11/05/21 11:11:00 EDT, Height, [...] Active Vitamin D insufficiency(Confirmed) 08/16/12 Active 1refer [id number] HEP C,b; immune HEP A,3r/o qylxsufjntmymdju2qgqknw3yemissxd counseling6? idekpic9inb RF ANCA,normal immunofixation,8lumbar puncture November 2011,neg lymenormal IGA neg SSA ,SSBnormal methylmalonic acid homocyseine9 legally blind;avzzfdfohp10uobzgc echo November 2014 Social History Social History Type Response Smoking Status 10 or more cigarettes (1/2 p ack or more)/day in last 30 days entered on: 02/04/19 Sex
--- OUTSIDE RECORDS SUMMARY | 2022-03-14 03:15 | XMS_ITS | Continuity of Care Document ---
:1975 Author Organization [facility] Address [address] [place] [address]- Care Team Providers Name Role Phone Jany Baig DO Primary Care Physician [place] [facility] [place](s): 01/07/21 - 02/06/21 [facility] [address] [address]- Attending Physician: Venice Salmon Admitting Physician: Venice [...] in the past and had GI side [id number] advised not to take d/t underlying liver [...] 08/02/12 Given 1Admin Note: #22Result Comment: [04/29/2017] [id number] Note: [email or web address] Admin Note: 3 RDINJ Medications baclofen 10 mg oral tablet 1, tablet, By Mouth, 3 times a day, # 90 tablet, Refills 0, Tot. Refills 0, Maintenance, 01/20/21 15:04:00 EDT, Route to Pharmacy Electronically, [facility], 178, cm, 01/07/21 17:59:00 EDT, Height, 81.4, kg, 12/03/20 13:52:00 EDT, Dry Weight Start Date: 01/20/21 Status: OrderedBactrim DS 800 mg-160 mg oral tablet 1 tablet, By Mouth, 2 times a day, for 10 days, # 20 tablet, 0 Refills, Acute 02/16/21 18:00:00 EDT,02/06/21 18:00:00 EDT, Tablet, [facility]/pharmacy #[id number], Partial fill upon patient request if the prescription is for a schedule II opioid drug., 1 tablet B... Start Date: 02/06/21 Stop Date: 02/16/21 Status: Orderedchantix 1mg tablet 1 tablet, By Mouth, 2 times a day, # 56 tablet, 0 Refills, Acute, 11/22/20 16:13:00 EDT, [facility], 178, cm, 11/12/20 15:32:00 EDT, Height, 84.9, kg, 08/31/20 1:07:00 EDT, Dry Weight Start Date: 11/22/20 Status: OrderedCo Q-10 100 mg oral capsule See Instructions, TAKE 1 CAPSULE BY MOUTH FOUR TIMES DAILY, # 120 capsule, 7 Refills, Maintenance, [facility], 178, cm, 10/22/20 13:17:00 EDT, Height, 84.9, kg, 08/31/20 1:07:00 EDT, Dry Weight Start Date: 11/01/20 Status: OrderedCo Q-10 100 mg oral capsule 1 capsule, By Mouth, 4 times a day, # 120 capsule, 11 Refills, Maintenance, 11/21/19 10:36:00 EDT, [facility]/pharmacy #[id number], 175, cm, 08/24/19 14:14:00 EDT, Height, 81.2, kg, 02/04/19 1:40:00 EDT, Dry Weight Start Date: 11/21/19 Stop Date: 11/15/20 Status: Orderedfluticasone 50 mcg/inh nasal spray See Instructions, USE 1 SPRAY INTO EACH NOSTRIL TWICE A DAY, # 16 Gm, 5 Refills, Maintenance, [facility], 30, USE 1 SPRAY INTO EACH NOSTRIL TWICE A DAY, 178, cm, 01/07/21 17:59:00 EDT, Height, 81.4, kg, 12/03/20 13:52:00 EDT, Dry Weight Start Date: 01/17/21 Status: Orderedgabapentin 600 mg oral tablet 1 tablet, By Mouth, 4 times a day, # 120 tablet, 0 Refills, Maintenance, 01/20/21 15:04:00 EDT, [facility], 178, cm, 01/07/21 17:59:00 EDT, Height, 81.4, kg, 12/03/20 13:52:00 EDT, Dry Weight Start Date: 01/20/21 Status: OrderedhydrOXYzine hydrochloride 25 mg oral tablet 1 TO 2 TABLETS, By Mouth, 3 times a day, PRN NEEDED FOR ANXIETY (VIAL), # 60 tablet, 3 Refills, Maintenance, 10/07/20 16:49:00 EDT, [facility], 178, cm, 08/31/20 11:25:00 EDT, Height, 84.9, kg, 08/31/20 1:07:00 EDT, Dry Weight Start Date: 10/07/20 Status: OrderedKeppra 500 mg oral tablet 1 tablet = 500 mg, By Mouth, 2 times a day, # 14 tablet, 0 Refills, Maintenance, 11/01/20 11:59:00 EDT, Tablet, [facility], Partial fill upon patient request if the prescription is for a schedule II opioid drug., 178, cm, 10/22/20 13:17:... Start Date: 11/01/20 Stop Date: 11/08/20 Status: Orderedmelatonin 3 mg oral tablet 1 tablet = 3 mg, By Mouth, Daily at bedtime, PRN for insomnia, # 60 tablet, 4 Refills, Maintenance, 07/18/20 17:30:00 EST, Tablet, [facility], 175, cm, 04/02/20 0:35:00 EDT, [...] Maintenance, 10/06/19 15:57:00 EDT, Tablet, [facility], 175, cm, 08/24/19 14:14:00 EDT, Height, 81.2, kg, 02/04/19 1:40:00 EDT, Dry Weight Start Date: 10/06/19 Status: Orderedsertraline 50 mg oral tablet 1 tablet, By Mouth, Daily, TAKE ALONG WITH A 100MG TABLET to equal 150mg daily, # 90 tablet, 1 Refills, Maintenance, 10/06/19 15:57:00 EDT, [facility], 175, cm, 08/24/19 14:14:00 EDT, Height, 81.2, kg, 02/04/19 1:40:00 EDT, Dry Weight Start Date: 10/06/19 Status: Orderedsildenafil 50 mg oral tablet 1 tablet = 50 mg, By Mouth, Daily, PRN erectile dysfunction, 1 hour before sexual activity, # 6 tablet, 5 Refills, Maintenance, 03/11/20 14:37:00 EDT, Tablet, [facility]/pharmacy #[id number], 175, cm, 08/24/19 14:14:00 EDT, Height, 81.2, kg, 02/04/19 1:40:00 EDT,... Start Date: 03/11/20 Status: DcphlcmYsj-B-Dbfz oral tablet See Instructions, TAKE 1 TABLET BY MOUTH ONCE A DAY, # 30 tablet, 10 Refills, Maintenance, [facility], 28, TAKE 1 TABLET BY [...] 0 Refills, Maintenance, 10/22/20 17:52:00 EDT, Tablet, [facility]/pharmacy #[id number], Partial fill upon patient request if [...] Details, Route to Pharmacy Electronically, [facility], 178, cm, 10/22/20... Start Date: 11/01/20 Status: OrderedVitamin B1 100 mg oral tablet 1, tablet, By Mouth, Daily, # 90 tablet, Refills 2, Tot. Refills 0, Acute, 09/05/20 17:32:00 EDT, Route to Pharmacy Electronically, [facility], 178, cm, 08/31/20 11:25:00 EDT, Height, 84.9, kg,08/31/20 1:07:00 EDT, Dry Weight Start Date: 09/05/20 Status: OrderedXifaxan 550 mg oral tablet 1 tablet, By Mouth, 2 times a day, # 60 tablet, 0 Refills, Maintenance, 04/16/20 14:45:00 EST, [facility]/pharmacy #[id number], 175, cm, 04/02/20 0:35:00 EDT, Height, [...] Active Vitamin D insufficiency(Confirmed) 08/16/12 Active 1refer [id number] HEP C,b; immune HEP A,3r/o ixijzgwehyxaybra6cvonmv2mdryokhz counseling6? yocyysw5qgh RF ANCA,normal immunofixation,8lumbar puncture November 2011,neg lymenormal IGA neg SSA ,SSBnormal methylmalonic acid homocyseine9 legally blind;[id number] echo November 2014 Social History Social History Type Response Smoking Status 10 or more cigarettes (1/2 p ack or more)/day in last 30 days entered on: 02/04/19 Sex
--- OUTSIDE RECORDS SUMMARY | 2022-03-14 03:15 | XMS_ITS | Continuity of Care Document ---
:1975 Author Organization [facility] Address [address] [place] [address]- Care Team Providers Name Role Phone Jany Baig DO Primary Care Physician Encounter [facility] Date(s): 05/21/20 - 06/20/20 [facility] [address] [place] [address]- Allergies, Adverse Reactions, Alerts Substance Reaction Severity Status ibuprofen1 Hx of GI Bleed Active aspirin2 Hx GI Bleed Active Tylenol3 Cirrhosis Active NSAIDs Active 1pt advised not to take NSAIDs or Tylenol due to underlying liver disease. Also had GI side effects when took too much aspirin in the past.2pt took too much in the past and had GI side [id number] advised not to take d/t underlying liver [...] 08/02/12 Given 1Admin Note: #22Result Comment: [04/29/2017] [id number] Note: [email or web address] Admin Note: 3 RDINJ Medications baclofen 10 mg oral tablet 10 mg, 1, tablet, By Mouth, 3 times a day, # 90 tablet, Refills 4, Tot. Refills 4, Maintenance, 02/16/20 17:55:00 EDT, Route to Pharmacy Electronically, [facility], 175, cm, 08/24/19 14:14:00 EDT, Height, 81.2, kg, 02/04/19 1:40:00 EDT, Dry We... Start Date: 02/16/20 Stop Date: 07/15/20 Status: Orderedchantix 1mg tablet 1 tablet, By Mouth, 2 times a day, for 12 week(s), # 56 tablet, 0 Refills, Acute, 05/21/20 12:54:00 EST, [facility], 175, cm, 04/02/20 0:35:00 EDT, Height, 100, kg, 04/02/20 0:35:00 EDT, Dry Weight Start Date: 05/21/20 Stop Date: 08/13/20 Status: OrderedCo Q-10 100 mg oral capsule 1 capsule, By Mouth, 4 times a day, # 120 capsule, 11 Refills, Maintenance, 11/21/19 10:36:00 EDT, [facility]/pharmacy #[id number], 175, cm, 08/24/19 14:14:00 EDT, Height, 81.2, kg, 02/04/19 1:40:00 EDT, Dry Weight Start Date: 11/21/19 Stop Date: 11/15/20 Status: OrderedEngerix-B 20 mcg/mL intramuscular suspension = 20 mcg, Intramuscular, Every 30 days, rpt at 1 and 6 months, # 1 mL, 2 Refills, Maintenance, 11/02/19 9:02:00 EDT, Suspension, [facility]/pharmacy #[id number], 175, cm, 08/24/19 14:14:00 EDT, Height, 81.2, kg, 02/04/19 1:40:00 EDT, Dry Weight Start Date: 11/02/19 Status: Orderedfluticasone 50 mcg/inh nasal spray See Instructions, SPRAY 1 SPRAY INTO EACH NOSTRIL TWICE A DAY, # 16 Gm, 5 Refills, 01/26/20 9:52:00 EDT, [facility], 30, SPRAY 1 SPRAY INTO EACH NOSTRIL TWICE A DAY, 175, cm, 08/24/19 14:14:00 EDT, Height, 81.2, kg, 02/04/19 1:40:00 EDT, Dry W... Start Date: 01/26/20 Status: Orderedgabapentin 600 mg oral tablet 1 tablet, By Mouth, 4 times a day, # 120 tablet, 2 Refills, Maintenance, 05/21/20 12:54:00 EST, [facility], 175, cm, 04/02/20 0:35:00 EDT, Height, 100, kg, 04/02/20 0:35:00 EDT, Dry Weight Start Date: 05/21/20 Status: OrderedhydrOXYzine hydrochloride 25 mg oral tablet 1 TO 2 TABLETS, By Mouth, 3 times a day, PRN NEEDED FOR ANXIETY (VIAL), # 60 tablet, 1 Refills, Acute, 05/21/20 12:54:00 EST, [facility], 175, cm, 04/02/20 0:35:00 [...] 11/25/20 16:37:00 EDT, 12/01/19 16:37:00 EDT, Syrup, [facility], re sent from 10/04/17, [...] 4 Refills, Maintenance, 10/06/19 16:16:00 EDT, Tablet, [facility], 175, cm, 08/24/19 14:14:00 [...] Gm, 0 Refills, Maintenance, 04/16/20 14:45:00 EST, [facility]/pharmacy #[id number], 8, APPLY TOPICALLY THREE TIMES [...] 1 Refills, Maintenance, 10/06/19 15:57:00 EDT, Tablet, [facility], 175, cm, 08/24/19 14:14:00 EDT, Height, 81.2, kg, 02/04/19 1:40:00 EDT, Dry Weight Start Date: 10/06/19 Status: Orderedsertraline 50 mg oral tablet 1 tablet, By Mouth, Daily, TAKE ALONG WITH A 100MG TABLET to equal 150mg daily, # 90 tablet, 1 Refills, Maintenance, 10/06/19 15:57:00 EDT, [facility], 175, cm, 08/24/19 14:14:00 EDT, Height, 81.2, kg, 02/04/19 1:40:00 EDT, Dry Weight Start Date: 10/06/19 Status: Orderedsildenafil 50 mg oral tablet 1 tablet = 50 mg, By Mouth, Daily, PRN erectile dysfunction, 1 hour before sexual activity, # 6 tablet, 5 Refills, Maintenance, 03/11/20 14:37:00 EDT, Tablet, [facility]acy #[id number], 175, cm, 08/24/19 14:14:00 EDT, Height, 81.2, kg, 02/04/19 1:40:00 EDT,... Start Date: 03/11/20 Status: VrppgvwNce-X-Oyls oral tablet 1 tablet, By Mouth, Daily, # 90 tablet, 1 Refills, Maintenance, 05/21/20 9:35:00 EST, [facility], 1 tablet By Mouth [...] 09/27/19 8:51:00 EDT, Route to Pharmacy Electronically, [facility], 175, cm, 08/24/19 14:14:00 EDT, Height, 81.2, kg, 02/04/19 1:40:00 EDT, Dry Weight Start Date: 09/27/19 Status: OrderedXifaxan 550 mg oral tablet 1 tablet, By Mouth, 2 times a day, # 60 tablet, 0 Refills, Maintenance, 04/16/20 14:45:00 EST, [facility] #[id number], 175, cm, 04/02/20 0:35:00 EDT, [...] Active Vitamin D insufficiency(Confirmed) 08/16/12 Active 1refer [id number] HEP C,b; immune HEP A,3r/o vzqcztzmykcgksau7cbyexp3empinjry counseling6? ctxybix5uvy RF ANCA,normal immunofixation,8lumbar puncture November 2011,neg lymenormal IGA neg SSA ,SSBnormal methylmalonic acid homocyseine9 legally blind;cwhfbdjxvw39eczwkn echo November 2014 Social History Social History Type Response Smoking Status 10 or more cigarettes (1/2 p ack or more)/day in last 30 days entered on: 02/04/19 Sex
--- OUTSIDE RECORDS SUMMARY | 2022-03-14 03:15 | XMS_ITS | Continuity of Care Document ---
:1975 Author Organization [facility] Address [address] [place] [address]- Care Team Providers Name Role Phone Jany Baig DO Primary Care Physician Encounter [facility] Date(s): 07/31/20 - 08/30/20 [facility] [address] [place] [address]- Allergies, Adverse Reactions, Alerts Substance Reaction Severity Status ibuprofen1 Hx of GI Bleed Active aspirin2 Hx GI Bleed Active Tylenol3 Cirrhosis Active NSAIDs Active 1pt advised not to take NSAIDs or Tylenol due to underlying liver disease. Also had GI side effects when took too much aspirin in the past.2pt took too much in the past and had GI side newqqdn4qf advised not to take d/t underlying liver [...] 08/02/12 Given 1Admin Note: #22Result Comment: [04/29/2017] [id number] Note: [email or web address] Admin Note: 3 RDINJ Medications baclofen 10 mg oral tablet 10 mg, 1, tablet, By Mouth, 3 times a day, pt needs to schedule appt, # 90 tablet, Refills 0, Tot. Refills 0, Maintenance, 08/29/20 13:57:00 EDT, Route to Pharmacy Electronically, [facility], 175, cm, 04/02/20 0:35:00 EDT, Height, 100, kg, 10/... Start Date: 08/29/20 Stop Date: 09/28/20 Status: Orderedchantix 1mg tablet 1 tablet, By Mouth, 2 times a day, for 12 week(s), neeeds to schedule appt, # 56 tablet, 0 Refills, Acute 09/18/20 11:11:00 EDT, 06/26/20 11:11:00 EST, [facility], 175, cm, 04/02/20 0:35:00 EDT, Height, [...] # 16 Gm, 5 Refills, 07/09/20 11:38:00EST, [facility], 30, SPRAY 1 SPRAY INTO EACH NOSTRIL TWICE A DAY, 175, cm, 04/02/20 0:35:00 EDT, Height, 100, kg, 04/02/20 0:35:00 EDT, Dry We... Start Date: 07/09/20 Status: Orderedgabapentin 600 mg oral tablet 1 tablet, By Mouth, 4 times a day, # 120 tablet, 0 Refills, Maintenance, 08/07/20 12:03:00 EST, [facility], 175, cm, 04/02/20 0:35:00 EDT, Height, 100, kg, 04/02/20 0:35:00 EDT, Dry Weight Start Date: 08/07/20 Status: OrderedhydrOXYzine hydrochloride 25 mg oral tablet 1 TO 2 TABLETS, By Mouth, 3 times a day, PRN NEEDED FOR ANXIETY (VIAL), pt needs to schedule appt, # 60 tablet, 1 Refills, Maintenance, 07/18/20 17:31:00 EST, [facility], 175, cm, 04/02/20 0:35:00 EDT, Height, 100, kg, 04/02/20 0:35:00 EDT,... Start Date: 07/18/20 Status: Orderedlactulose 10 gm/15 ml oral syrup 30 mL = 20 Gm, By Mouth, 3 times a day, PRN Other, for 30 days, PRN to acheive 3-4 BMs per day fill in prefilled syringes, # 3,000 mL, 11 Refills, Acute 11/25/20 16:37:00 EDT, 12/01/19 16:37:00 EDT, Syrup, [facility], re sent from 10/04/17, 30... [...] 4 Refills, Maintenance, 07/18/20 17:30:00 EST, Tablet, [facility], 175, cm, 04/02/20 0:35:00 EDT, [...] Gm, 0 Refills, Maintenance, 04/16/20 14:45:00 EST, [facility]/pharmacy #[id number], 8, APPLY TOPICALLY THREE TIMES DAILY (APPLY A THIN FILM), 175, cm, 04/02/20 0:35:00 EDT, Height, 100,... Start Date: 04/16/20 Status: Orderedmupirocin 2% topical ointment See Instructions, APPLY TOPICALLY THREE TIMES DAILY (APPLY A THIN FILM), # 22 Gm, 0 Refills, Acute, [facility], 8, APPLY TOPICALLY THREE TIMES DAILY (APPLY A THIN FILM), 175, cm, 04/02/20 0:35:00 EDT, Height, 100, kg, 04/02/20 0:35:00 EDT, Dry... Start Date: 07/18/20 Status: Orderedpantoprazole 40 mg [...] 1 Refills, Maintenance, 10/06/19 15:57:00 EDT, Tablet, [facility], 175, cm, 08/24/19 14:14:00 EDT, Height, 81.2, kg, 02/04/19 1:40:00 EDT, Dry Weight Start Date: 10/06/19 Status: Orderedsertraline 50 mg oral tablet 1 tablet, By Mouth, Daily, TAKE ALONG WITH A 100MG TABLET to equal 150mg daily, # 90 tablet, 1 Refills, Maintenance, 10/06/19 15:57:00 EDT, [facility], 175, cm, 08/24/19 14:14:00 EDT, Height, 81.2, kg, 02/04/19 1:40:00 EDT, Dry Weight Start Date: 10/06/19 Status: Orderedsildenafil 50 mg oral tablet 1 tablet = 50 mg, By Mouth, Daily, PRN erectile dysfunction, 1 hour before sexual activity, # 6 tablet, 5 Refills, Maintenance, 03/11/20 14:37:00 EDT, Tablet, [facility]/pharmacy #[id number], 175, cm, 08/24/19 14:14:00 EDT, Height, 81.2, kg, 02/04/19 1:40:00 EDT,... Start Date: 03/11/20 Status: EuoykkrZmw-E-Luaz oral tablet 1 tablet, By Mouth, Daily, # 90 tablet, 1 Refills, Maintenance, 05/21/20 9:35:00 EST, [facility], 1 tablet By Mouth Daily, 175, cm, 04/02/20 0:35:00 EDT, Height, 100, kg, 04/02/20 0:35:00 EDT, Dry Weight Start Date: 05/21/20 Status: PghwyxuAtu-K-Osrz oral tablet See Instructions, TAKE 1 TABLET BY MOUTH ONCE A DAY, # 30 tablet, 10 Refills, Maintenance, [facility], 28, TAKE 1 TABLET BY MOUTH ONCE [...] Replace Required Details, Route to Pharmacy Electronically, [facility], 175, cm, 04/02/20 0:35:00 EDT, Height, 100,... Start Date: 08/07/20 Status: OrderedVitamin B1 100 mg oral tablet 1, tablet, By Mouth, Daily, # 90 tablet, Refills 3, Tot. Refills 3, Maintenance, 09/27/19 8:51:00 EDT, Route to Pharmacy Electronically, [facility], 175, cm, 08/24/19 14:14:00 EDT, Height, 81.2, kg, 02/04/19 1:40:00 EDT, Dry Weight Start Date: 09/27/19 Status: OrderedXifaxan 550 mg oral tablet 1 tablet, By Mouth, 2 times a day, # 60 tablet, 0 Refills, Maintenance, 04/16/20 14:45:00 EST, [facility]/pharmacy #[id number], 175, cm, 04/02/20 [...] Active Vitamin D insufficiency(Confirmed) 08/16/12 Active 1refer ptqnz2itm HEP C,b; immune HEP A,3r/o obokmzsucdtbugmk5qbzouy8oyvlrqfq counseling6? qdnyoma1vxq RF ANCA,normal immunofixation,8lumbar puncture November 2011,neg lymenormal IGA neg SSA ,SSBnormal methylmalonic acid homocyseine9 legally blind;nnlmlguzzn51qjsamz echo November 2014 Social History Social History Type Response Smoking Status 10 or more cigarettes (1/2 p ack or more)/day in last 30 days entered on: 02/04/19 Sex
--- OUTSIDE RECORDS SUMMARY | 2022-03-14 03:15 | XMS_ITS | Continuity of Care Document ---
:1975 Author Organization [facility] Address [address] [place] [address]- Care Team Providers Name Role Phone Jany Baig DO Primary Care Physician Encounter [facility] Date(s): 08/13/21 - 09/12/21 [facility] [address] [place] [address]- Allergies, Adverse Reactions, Alerts Substance Reaction Severity Status ibuprofen1 Hx of GI Bleed Active aspirin2 Hx GI Bleed Active Tylenol3 Cirrhosis Active NSAIDs Active 1pt advised not to take NSAIDs or Tylenol due to underlying liver disease. Also had GI side effects when took too much aspirin in the past.2pt took too much in the past and had GI side poozopx1uk advised not to take d/t underlying liver [...] acel (oldterm) 08/02/12 Given 1Result Comment: [04/29/2017] [id number] Note: [id number] Note: 3 [id number] Note: #2 Medications acamprosate 333 mg oral [...] a day, # 120 capsule, 6 Refills, [facility], 174, cm, 02/27/21 15:17:00 EDT, Height, 81, kg, 02/27/21 14:06:00 EDT, Dry Weight Start Date: 07/08/21 Status: Orderedfluticasone 50 mcg/inh nasal spray See Instructions, USE 1 SPRAY INTO EACH NOSTRIL TWICE A DAY, # 16 Gm, 5 Refills, [facility],30, USE 1 SPRAY INTO EACH NOSTRIL TWICE A DAY, 174, cm, 07/14/21 8:16:00 EST, Height, 81, kg, 02/27/21 14:06:00 EDT, Dry Weight Start Date: 08/04/21 Status: OrderedhydrOXYzine hydrochloride 25 mg oral tablet 1 TO 2 TABLETS, By Mouth, 3 times a day, PRN NEEDED FOR ANXIETY (VIAL), # 60 tablet, 0 Refills, [facility], 174, cm, 08/14/21 14:21:00 EST, Height, 81, kg, 02/27/21 14:06:00 EDT, Dry Weight Start Date: 08/18/21 Status: Orderedlactulose 10 gm/15 ml oral syrup See Instructions, TAKE 30ML BY MOUTH THREE TIMES DAILY NEEDED TO ACHEIVE 3-4 BOWL MOVEMENTS PER DAY, # 3,000 mL, 10 Refills, [facility], 30, TAKE 30ML BY MOUTH THREE TIMES DAILY NEEDED TOACHEIVE 3-4 BOWL MOVEMENTS PER DAY, 174, cm, 02/12... Start Date: 07/02/21 Status: OrderedMelatonin 3 mg oral tablet 1 tablet, By Mouth, Daily at bedtime, PRN NEEDED FOR INSOMNIA (PACKAGE IN TRAY), # 60 tablet, 5 Refills, Maintenance, 06/02/21 16:17:00 EST, [facility], 28, 1 tablet By [...] II opioid drug. Start Date: 08/28/21 Status: LsepwszGub-M-Amin oral tablet 1 tablet, By Mouth, Daily, # 90 tablet, 9 Refills, [facility], 28, TAKE 1 TABLET BY MOUTH ONCE A DAY, 174, cm, 07/14/21 8:16:00 EST, Height, 81, kg, 02/27/21 14:06:00 EDT, Dry Weight Start Date: 07/22/21 Status: OrderedtraZODone 50 mg oral tablet See Instructions, TAKE 1 TO 2 TABLETS BY MOUTH AT BEDTIME (ONE DOSE IN VIAL), # 60 tablet, Refills 0, Instructions Replace Required Details, Route to Pharmacy Electronically, [facility], 174, cm, 08/14/21 14:21:00 EST, Height, 81, kg, 02/27/21... Start Date: 08/18/21 Status: Orderedvarenicline 1mg tablet 1 tablet, By Mouth, 2 times a day, INSTR:TO START AFTER 0.5 MG TABS, # 56 tablet, 2 Refills, [id number], 172, cm, 08/28/21 23:35:00 EDT, Height, 85.4, kg, 08/20/21 16:20:00 EST, Dry Weight Start Date: 09/01/21 Status: OrderedVitamin B1 100 mg oral tablet 1, tablet, By Mouth, Daily, # 90 tablet, Refills 1, Route to Pharmacy Electronically, [facility], 174, cm, 02/27/21 15:17:00 EDT, [...] Active Vitamin D insufficiency(Confirmed) 08/16/12 Active 1refer mbnqk2dyu HEP C,b; immune HEP A,3r/o ajjujhuruhnnldpy1inqqiu1jsoockgm counseling6? revtawv8czh RF ANCA,normal immunofixation,8lumbar puncture November 2011,neg lymenormal IGA neg SSA ,SSBnormal methylmalonic acid homocyseine9 legally blind;bbjgbqzbpi42phhblr echo November 2014 Social History Social History Type Response Smoking Status 10 or more cigarettes (1/2 p ack or more)/day in last 30 days entered on: 02/04/19 Sex Male
--- OUTSIDE RECORDS SUMMARY | 2022-03-14 03:15 | XMS_ITS | Continuity of Care Document ---
:1975 Author Organization [facility] Address [address] [place] [address]- Care Team Providers Name Role Phone Jany Baig DO Primary Care Physician Encounter [facility] Date(s): 01/12/22 - 02/11/22 [facility] [address] [place] [address]- Allergies, Adverse Reactions, Alerts Substance Reaction Severity Status ibuprofen1 Hx of GI Bleed Active aspirin2 Hx GI Bleed Active Tylenol3 Cirrhosis Active NSAIDs Active 1pt advised not to take NSAIDs or Tylenol due to underlying liver disease. Also had GI side effects when took too much aspirin in the past.2pt took too much in the past and had GI side uvaofne9el advised not to take d/t underlying liver [...] acel (oldterm) 08/02/12 Given 1Result Comment: [04/29/2017] [id number] Note: [id number] Note: 3 [id number] Note: #2 Medications acetaminophen 500 mg oral tablet 1 tablet, By Mouth, 4 times a day, PRN NEEDED FOR PAIN, MAX 4, PER DAY (VIAL., # 50 tablet, 0 Refills, [facility], 175, cm, 01/06/22 10:34:00 EDT, Height, 78.3, kg, 12/26/21 19:05:00 EDT, Dry Weight Start Date: 01/28/22 Status: OrderedamLODIPine 5 mg oral tablet 5 mg, 1, tablet, By Mouth, Daily, # 30 tablet, Refills 5, Tot. Refills 5, Maintenance, 10/21/21 10:15:00 EDT, [facility], Partial fill upon patient request if the prescription is for a schedule II opioid drug.... Start Date: 10/21/21 Status: OrderedCo Q-10 100 mg oral capsule 1 capsule, By Mouth, 4 times a day, # 120 capsule, 6 Refills, [facility], 174, cm, 02/27/21 15:17:00 EDT, [...] DAY, # 16 Gm, 5 Refills, [facility],30, USE 1 SPRAY INTO EACH NOSTRIL TWICE A DAY, 174, cm, 07/14/21 8:16:00 EST, Height, 81, kg, 02/27/21 14:06:00 EDT, Dry Weight Start Date: 08/04/21 Status: Orderedfolic acid 1 mg oral tablet 1 mg, 1, tablet, By Mouth, Daily, # 90 tablet, Refills 4, Tot. Refills 4, Maintenance, 10/27/21 10:40:00 EDT, Route to Pharmacy Electronically, [facility], Partial fill upon patient request if the prescription is for a schedule II opioid drug.... Start Date: 10/27/21 Stop Date: 01/20/23 Status: Orderedfurosemide 20 mg oral tablet 1, tablet, By Mouth, Daily, # 30 tablet, Refills 0, Route to Pharmacy Electronically, [facility], 175, cm, 01/06/22 10:34:00 EDT, Height, 78.3, kg, 12/26/21 19:05:00 EDT, Dry Weight Start Date: 01/21/22 Status: OrderedhydrOXYzine hydrochloride 25 mg oral tablet 1 TO 2 TABLETS, By Mouth, 3 times a day, PRN NEEDED FOR ANXIETY (VIAL), # 60 tablet, 0 Refills, [facility], 175, cm, 01/06/22 10:34:00 EDT, Height, 78.3, kg, 12/26/21 19:05:00 EDT, Dry Weight Start Date: 01/28/22 Status: Orderedlactulose 10 gm/15 ml oral syrup See Instructions, TAKE 30ML BY MOUTH THREE TIMES DAILY NEEDED TO ACHEIVE 3-4 BOWL MOVEMENTS PER DAY, # 3,000 mL, 10 Refills, [facility], 30, TAKE 30ML BY MOUTH THREE TIMES DAILY NEEDED TOACHEIVE 3-4 BOWL MOVEMENTS PER DAY, 174, cm, 02/12... Start Date: 07/02/21 Status: Orderedlidocaine 0.5% topical gel 1 application, Topically, 3 times a day, # 120 Gm, 0 Refills, Acute 12/30/22 17:23:00 EDT, 12/30/21 17:23:00 EDT, Gel, [facility], Partial fill upon patient request if the prescription is for aschedule II opioid drug., 1 application Topically... Start Date: 12/30/21 Stop Date: 12/30/22 Status: OrderedLidoderm 5% film 1 patch, Topically, Daily, remove patches after 12 hours NSAIDS contraindicated High dose tylenol contraindicated, # 30 patch, 5 Refills, Maintenance, 12/26/21 9:33:00 EDT, [facility], Partial fill upon patient request if the prescription i... Start Date: 12/26/21 Status: Orderedmagnesium oxide 400 mg oral tablet 1 tablet, By Mouth, 2 times a day, # 60 tablet, 0 Refills, [facility], 175, cm, 01/06/22 10:34:00 EDT, Height, 78.3, kg, 12/26/21 19:05:00 EDT, Dry Weight Start Date: 01/21/22 Status: OrderedMelatonin 3 mg oral tablet 1 tablet, By Mouth, Daily at bedtime, PRN NEEDED FOR INSOMNIA (PACKAGE IN TRAY), # 60 tablet, 5 Refills, Maintenance, 06/02/21 16:17:00 EST, [facility], 28, 1 tablet By Mouth [...] Refills, Maintenance, 01/28/22 10:17:00 EDT, ER Tablet, [facility], Partial fill upon patient request if the prescription is for a schedule IIopioid drug., 175, cm, 01/06/22 10:34:00 EDT, Hei... Start Date: 01/28/22 Stop Date: 03/29/22 Status: Orderedpyridoxine 50 mg oral tablet 50 mg, 1, tablet, By Mouth, Daily, for 90 days, # 90 tablet, Refills 4, Tot. Refills 4, Acute 01/15/23 11:42:00 EDT, 10/22/21 11:42:00 EDT, Route to Pharmacy Electronically, [facility], Partialfill upon patient request if the prescription is... Start Date: 10/22/21 Stop Date: 01/15/23 Status: OrderedR aircast ankle-stirrup support brace R aircast ankle-stirrup support brace, See Instructions, # 1 each, Refills 0, Tot. Refills 0, Maintenance, Dx: R inversion ankle sprain s93.409a, 01/06/22 12:31:00 EDT, Supply Start Date: 01/06/22 Status: MyqhpegBjg-Q-Gkpp oral tablet 1 tablet, By Mouth, Daily, # 90 tablet, 9 Refills, [facility], 28, TAKE 1 TABLET BY MOUTH ONCE A DAY, 174, cm, 07/14/21 8:16:00 EST, Height, 81, kg, 02/27/21 14:06:00 EDT, Dry Weight Start Date: 07/22/21 Status: OrderedtraZODone 50 mg oral tablet See Instructions, TAKE 1 TO 2 TABLETS BY MOUTH AT BEDTIME (ONE DOSE IN VIAL), # 60 tablet, Refills 0, Instructions Replace Required Details, Route to Pharmacy Electronically, [facility], 175, cm, 01/06/22 10:34:00 EDT, Height, 78.3, kg, ... Start Date: 01/30/22 Status: OrderedtraZODone 50 mg oral tablet See Instructions, TAKE 2-3 TABLETS BY MOUTH AT BEDTIME (ONE DOSE IN VIAL), # 90 tablet, Refills 5, Tot. Refills 5, Maintenance, 12/26/21 9:21:00 EDT, Instructions Replace Required Details, Route to Pharmacy Electronically, [facility], 170, cm,... Start Date: 12/26/21 Status: OrderedVitamin B1 100 mg oral tablet 1, tablet, By Mouth, Daily, # 90 tablet, Refills 0, Route to Pharmacy Electronically, [facility], 170, cm, 11/12/21 10:02:00 EDT, Height, 78, kg, 11/04/21 12:03:00 EDT, Dry Weight Start Date: 12/24/21 Status: OrderedXifaxan 550 mg oral tablet 1 tablet, By Mouth, 2 times a day, # 60 tablet, 2 Refills, [facility], 175, cm, 01/06/22 10:34:00 EDT, [...] Active Vitamin D insufficiency(Confirmed) 08/16/12 Active 1refer druql9cui HEP C,b; immune HEP A,3r/o vlfugaehoytytsbp3vflofd1qsiikmin counseling6? whfthdt5oat RF ANCA,normal immunofixation,8lumbar puncture November 2011,neg lymenormal IGA neg SSA ,SSBnormal methylmalonic acid homocyseine9 legally blind;[id number] echo November 2014 Social History Social History Type Response Smoking Status 10 or more cigarettes (1/2 p ack or more)/day in last 30 days entered on: 02/04/19 Sex Care Team PersonnelName: Jany Baig DO Address: [address] [place] [address] Adult [facility] [place], [place] [address]
--- OUTSIDE RECORDS SUMMARY | 2022-03-14 03:15 | XMS_ITS | Continuity of Care Document ---
:1975 Author Organization [facility] Address [address] [place] [id number]- Care Team Providers Name Role Phone Jany Baig DO Primary Care Physician Encounter [facility] Date(s): 11/14/20 - 12/28/[address] [address] Attending Physician: Kacy King MD Admitting Physician: Kacy King MD Referring Physician: Kacy King MD Allergies, Adverse Reactions, Alerts Substance Reaction Severity Status ibuprofen1 Hx of GI Bleed Active aspirin2 Hx GI Bleed Active Tylenol3 Cirrhosis Active NSAIDs Active 1pt advised not to take NSAIDs or Tylenol due to underlying liver disease. Also had GI side effects when took too much aspirin in the past.2pt took too much in the past and had GI side ejzawca2ig advised not to take d/t underlying liver [...] 08/02/12 Given 1Admin Note: #22Result Comment: [04/29/2017] [id number] Note: [id number] Admin Note: 3 RDINJ Medications baclofen 10 mg oral tablet 1, tablet, By Mouth, 3 times a day, # 90 tablet, Refills 0, Tot. Refills 0, Maintenance, 12/25/20 8:36:00 EDT, Route to Pharmacy Electronically, [facility], 178, cm, 12/03/20 13:52:00 EDT, Height, 81.4, kg, 12/03/20 13:52:00 EDT, Dry Weight Start Date: 12/25/20 Status: Orderedchantix 1mg tablet 1 tablet, By Mouth, 2 times a day, # 56 tablet, 0 Refills, Acute, 11/22/20 16:13:00 EDT, [facility], 178, cm, 11/12/20 15:32:00 EDT, Height, 84.9, kg, 08/31/20 1:07:00 EDT, Dry Weight Start Date: 11/22/20 Status: OrderedCo Q-10 100 mg oral capsule See Instructions, TAKE 1 CAPSULE BY MOUTH FOUR TIMES DAILY, # 120 capsule, 7 Refills, Maintenance, [facility], 178, cm, 10/22/20 13:17:00 EDT, Height, 84.9, kg, 08/31/20 1:07:00 EDT, Dry Weight Start Date: 11/01/20 Status: OrderedCo Q-10 100 mg oral capsule 1 capsule, By Mouth, 4 times a day, # 120 capsule, 11 Refills, Maintenance, 11/21/19 10:36:00 EDT, [facility]/pharmacy #[id number], 175, cm, 08/24/19 14:14:00 EDT, Height, 81.2, kg, 02/04/19 1:40:00 EDT, Dry Weight Start Date: 11/21/19 Stop Date: 11/15/20 Status: Orderedfluticasone 50 mcg/inh nasal spray See Instructions, SPRAY 1 SPRAY INTO EACH NOSTRIL TWICE A DAY, # 16 Gm, 5 Refills, 07/09/20 11:38:00EST, [facility], 30, SPRAY 1 SPRAY INTO EACH NOSTRIL TWICE A DAY, 175, cm, 04/02/20 0:35:00 EDT, Height, 100, kg, 04/02/20 0:35:00 EDT, Dry We... Start Date: 07/09/20 Status: Orderedgabapentin 600 mg oral tablet 1 tablet, By Mouth, 4 times a day, # 120 tablet, 0 Refills, Maintenance, 12/25/20 8:36:00 EDT, [facility], 178, cm, 12/03/20 13:52:00 EDT, Height, 81.4, kg, 12/03/20 13:52:00 EDT, Dry Weight Start Date: 12/25/20 Status: OrderedhydrOXYzine hydrochloride 25 mg oral tablet 1 TO 2 TABLETS, By Mouth, 3 times a day, PRN NEEDED FOR ANXIETY (VIAL), # 60 tablet, 3 Refills, Maintenance, 10/07/20 16:49:00 EDT, [facility], 178, cm, 08/31/20 11:25:00 EDT, Height, 84.9, kg, 08/31/20 1:07:00 EDT, Dry Weight Start Date: 10/07/20 Status: OrderedKeppra 500 mg oral tablet 1 tablet = 500 mg, By Mouth, 2 times a day, # 14 tablet, 0 Refills, Maintenance, 11/01/20 11:59:00 EDT, Tablet, [facility] 3, Partial fill upon patient request if the prescription is for a schedule II opioid drug., 178, cm, 10/22/20 13:17:... Start Date: 11/01/20 Stop Date: 11/08/20 Status: Orderedmelatonin 3 mg oral tablet 1 tablet = 3 mg, By Mouth, Daily at bedtime, PRN for insomnia, # 60 tablet, 4 Refills, Maintenance, 07/18/20 17:30:00 EST, Tablet, [facility], 175, cm, 04/02/20 0:35:00 EDT, [...] Maintenance, 10/06/19 15:57:00 EDT, Tablet, [facility], 175, cm, 08/24/19 14:14:00 EDT, Height, 81.2, kg, 02/04/19 1:40:00 EDT, Dry Weight Start Date: 10/06/19 Status: Orderedsertraline 50 mg oral tablet 1 tablet, By Mouth, Daily, TAKE ALONG WITH A 100MG TABLET to equal 150mg daily, # 90 tablet, 1 Refills, Maintenance, 10/06/19 15:57:00 EDT, [facility], 175, cm, 08/24/19 14:14:00 EDT, Height, 81.2, kg, 02/04/19 1:40:00 EDT, Dry Weight Start Date: 10/06/19 Status: Orderedsildenafil 50 mg oral tablet 1 tablet = 50 mg, By Mouth, Daily, PRN erectile dysfunction, 1 hour before sexual activity, # 6 tablet, 5 Refills, Maintenance, 03/11/20 14:37:00 EDT, Tablet, [facility]/pharmacy #[id number], 175, cm, 08/24/19 14:14:00 EDT, Height, 81.2, kg, 02/04/19 1:40:00 EDT,... Start Date: 03/11/20 Status: SyvajvlHdr-Q-Bksd oral tablet See Instructions, TAKE 1 TABLET BY MOUTH ONCE A DAY, # 30 tablet, 10 Refills, Maintenance, [facility], 28, TAKE 1 TABLET BY MOUTH [...] 0 Refills, Maintenance, 10/22/20 17:52:00 EDT, Tablet, [facility]/pharmacy #[id number], Partial fill upon [...] Details, Route to Pharmacy Electronically, [facility], 178, cm, 10/22/20... Start Date: 11/01/20 Status: OrderedVitamin B1 100 mg oral tablet 1, tablet, By Mouth, Daily, # 90 tablet, Refills 2, Tot. Refills 0, Acute, 09/05/20 17:32:00 EDT, Route to Pharmacy Electronically, [facility], 178, cm, 08/31/20 11:25:00 EDT, Height, 84.9, kg,08/31/20 1:07:00 EDT, Dry Weight Start Date: 09/05/20 Status: OrderedXifaxan 550 mg oral tablet 1 tablet, By Mouth, 2 times a day, # 60 tablet, 0 Refills, Maintenance, 04/16/20 14:45:00 EST, [facility]/pharmacy #[id number], 175, cm, 04/02/20 [...] Active Vitamin D insufficiency(Confirmed) 08/16/12 Active 1refer insiu2xrs HEP C,b; immune HEP A,3r/o uprjzqfdkiphwxro4ktnbqx8ffzdsluh counseling6? krionzy1sfu RF ANCA,normal immunofixation,8lumbar puncture November 2011,neg lymenormal IGA neg SSA ,SSBnormal methylmalonic acid homocyseine9 legally blind;askxqrsojf10hfigsb echo November 2014 Social History Social History Type Response Smoking Status 10 or more cigarettes (1/2 p ack or more)/day in last 30 days entered on: 02/04/19 Sex
--- OUTSIDE RECORDS SUMMARY | 2022-03-14 03:15 | XMS_ITS | Continuity of Care Document ---
:1975 Author Organization [facility] Address [address] [place] [address]- Care Team Providers Name Role Phone Jany Baig DO Primary Care Physician Encounter [facility] Date(s): 05/12/21 - 06/11/21 [facility] [address] [place] [address]- Allergies, Adverse Reactions, Alerts Substance Reaction Severity Status ibuprofen1 Hx of GI Bleed Active aspirin2 Hx GI Bleed Active Tylenol3 Cirrhosis Active NSAIDs Active 1pt advised not to take NSAIDs or Tylenol due to underlying liver disease. Also had GI side effects when took too much aspirin in the past.2pt took too much in the past and had GI side roplyux9rl advised not to take d/t underlying liver [...] acel (oldterm) 08/02/12 Given 1Result Comment: [04/29/2017] [id number] Note: [id number] Note: 3 ROCRU4Iumym Note: #2 Medications baclofen 10 mg oral tablet 1, tablet, By Mouth, 3 times a day, # 90 tablet, Refills 0, Route to Pharmacy Electronically, [facility], 174, cm, 02/27/21 15:17:00 EDT, Height, 81, kg, 02/27/21 14:06:00 EDT, Dry Weight Start Date: 05/12/21 Status: Orderedchantix 1mg tablet 1 tablet, By Mouth, 2 times a day, # 56 tablet, 0 Refills, Acute, 11/22/20 16:13:00 EDT, [facility], 178, cm, 11/12/20 15:32:00 EDT, Height, 84.9, kg, 08/31/20 1:07:00 EDT, Dry Weight Start Date: 11/22/20 Status: OrderedCo Q-10 100 mg oral capsule See Instructions, TAKE 1 CAPSULE BY MOUTH FOUR TIMES DAILY, # 120 capsule, 7 Refills, Maintenance, [facility], 178, cm, 10/22/20 13:17:00 EDT, Height, 84.9, kg, 08/31/20 1:07:00 EDT, Dry Weight Start Date: 11/01/20 Status: OrderedCo Q-10 100 mg oral capsule 1 capsule, By Mouth, 4 times a day, # 120 capsule, 11 Refills, Maintenance, 11/21/19 10:36:00 EDT, [facility]/pharmacy #[id number], 175, cm, 08/24/19 14:14:00 EDT, Height, 81.2, kg, 02/04/19 1:40:00 EDT, Dry Weight Start Date: 11/21/19 Stop Date: 11/15/20 Status: Orderedfluticasone 50 mcg/inh nasal spray See Instructions, USE 1 SPRAY INTO EACH NOSTRIL TWICE A DAY, # 16 Gm, 5 Refills, Maintenance, [facility], 30, USE 1 SPRAY INTO EACH NOSTRIL TWICE A DAY, 178, cm, 01/07/21 17:59:00 EDT, Height, 81.4, kg, 12/03/20 13:52:00 EDT, Dry Weight Start Date: 01/17/21 Status: Orderedgabapentin 600 mg oral tablet 1 tablet, By Mouth, 4 times a day, # 120 tablet, 0 Refills, [facility], 174, cm, 02/27/21 15:17:00 EDT, Height, 81, kg, 02/27/21 14:06:00 EDT, Dry Weight Start Date: 05/12/21 Status: OrderedhydrOXYzine hydrochloride 25 mg oral tablet 1 TO 2 TABLETS, By Mouth, 3 times a day, PRN NEEDED FOR ANXIETY (VIAL), # 60 tablet, 5 Refills, Maintenance, 06/02/21 16:17:00 EST, [facility], 174, cm, 02/27/21 15:17:00 EDT, Height, 81, kg, 02/27/21 14:06:00 EDT, Dry Weight Start Date: 06/02/21 Status: OrderedMelatonin 3 mg oral tablet 1 tablet, By Mouth, Daily at bedtime, PRN NEEDED FOR INSOMNIA (PACKAGE IN TRAY), # 60 tablet, 5 Refills, Maintenance, 06/02/21 16:17:00 EST, [facility], 28, 1 tablet By [...] 1 Refills, Maintenance, 10/06/19 15:57:00 EDT, Tablet, [facility], 175, cm, 08/24/19 14:14:00 EDT, Height, 81.2, kg, 02/04/19 1:40:00 EDT, Dry Weight Start Date: 10/06/19 Status: Orderedsertraline 50 mg oral tablet 1 tablet, By Mouth, Daily, TAKE ALONG WITH A 100MG TABLET to equal 150mg daily, # 90 tablet, 1 Refills, Maintenance, 10/06/19 15:57:00 EDT, [facility], 175, cm, 08/24/19 14:14:00 EDT, Height, 81.2, kg, 02/04/19 1:40:00 EDT, Dry Weight Start Date: 10/06/19 Status: Orderedsildenafil 50 mg oral tablet 1 tablet = 50 mg, By Mouth, Daily, PRN erectile dysfunction, 1 hour before sexual activity, # 6 tablet, 5 Refills, Maintenance, 03/11/20 14:37:00 EDT, Tablet, [facility]/pharmacy #[id number], 175, cm, 08/24/19 14:14:00 EDT, Height, 81.2, kg, 02/04/19 1:40:00 EDT,... Start Date: 03/11/20 Status: DeyolafKbm-P-Tqob oral tablet See Instructions, TAKE 1 TABLET BY MOUTH ONCE A DAY, # 30 tablet, 10 Refills, Maintenance, [facility] 28, TAKE 1 TABLET BY MOUTH ONCE A DAY, 175, cm, 04/02/20 0:35:00 EDT, Height, 100, kg, 04/02/20 0:35:00 EDT, Dry Weight Start Date: 07/18/20 Status: Orderedtranexamic acid 650 mg oral tablet 1 tablet = 650 mg, By Mouth, Daily, # 21 tablet, 0 Refills, Maintenance, 10/22/20 17:52:00 EDT, Tablet, [facility]/pharmacy #[id number], Partial fill upon patient request if the prescription is for a schedule II opioid drug., 178, cm, 10/22/20 13:17:00 EDT, Height... Start Date: 10/22/20 Status: OrderedtraZODone 50 mg oral tablet See Instructions, TAKE 1 TO 2 TABLETS BY MOUTH AT BEDTIME (ONE DOSE IN VIAL), # 60 tablet, Refills 5, Instructions Replace Required Details, Route to Pharmacy Electronically, [facility], 174, cm, 02/11/21 12:09:00 EDT, Height, 86.6, kg, ... Start Date: 02/15/21 Status: OrderedVitamin B1 100 mg oral tablet 1, tablet, By Mouth, Daily, # 90 tablet, Refills 2, Tot. Refills 0, Acute, 09/05/20 17:32:00 EDT, Route to Pharmacy Electronically, [facility], 178, cm, 08/31/20 11:25:00 EDT, Height, 84.9, kg,08/31/20 1:07:00 EDT, Dry Weight Start Date: 09/05/20 Status: OrderedXifaxan 550 mg oral tablet 1 tablet, By Mouth, 2 times a day, # 60 tablet, 0 Refills, Maintenance, 04/16/20 14:45:00 EST, [facility]/pharmacy #[id number], 175, cm, 04/02/20 [...] Active Vitamin D insufficiency(Confirmed) 08/16/12 Active 1refer ejvnk0gmw HEP C,b; immune HEP A,3r/o shqphpafobfrwzfm3nafwyz2rljrwuse counseling6? idevqox5dcy RF ANCA,normal immunofixation,8lumbar puncture November 2011,neg lymenormal IGA neg SSA ,SSBnormal methylmalonic acid homocyseine9 legally blind;koqthszcxy11oqfndc echo November 2014 Social History Social History Type Response Smoking Status 10 or more cigarettes (1/2 p ack or more)/day in last 30 days entered on: 02/04/19 Sex Male
--- OUTSIDE RECORDS SUMMARY | 2022-03-14 03:15 | XMS_ITS | Continuity of Care Document ---
:1975 Author Organization [facility] Address [address] [place] [address]- Care Team Providers Name Role Phone Jany Baig DO Primary Care Physician Encounter [facility] [place] Date(s): 01/17/20 - 02/16/20 [facility] [address] [place] [address]- [facility] Attending Physician: Venice Salmon Admitting Physician: Venice [...] in the past and had GI side [id number] advised not to take d/t underlying liver [...] 08/02/12 Given 1Admin Note: #22Result Comment: [04/29/2017] [id number] Note: [email or web address] Admin Note: 3 RDINJ Medications baclofen 10 mg oral tablet 10 mg, 1, tablet, By Mouth, 3 times a day, # 90 tablet, Refills 4, Tot. Refills 4, Maintenance, 02/16/20 17:55:00 EDT, Route to Pharmacy Electronically, [facility], 175, cm, 08/24/19 14:14:00 EDT, Height, 81.2, kg, 02/04/19 1:40:00 EDT, Dry We... Start Date: 02/16/20 Stop Date: 07/15/20 Status: Orderedchantix 1mg tablet 1 tablet = 1 mg, By Mouth, 2 times a day, with a full glass of water, continue for total of 12 wks, # 56 tablet, 1 Refills, Maintenance, 10/06/19 15:54:00 EDT, Tablet, [facility], 175, cm, 08/24/19 14:14:00 EDT, Height, 81.2, kg, 02/04/19 1:40... Start Date: 10/06/19 Status: Orderedchantix 1mg tablet See Instructions, TAKE 1 TABLET BY MOUTH TWICE A DAY WITH A FULL GLASS OF WATER AND CONTINUE FOR A TOTAL OF 12 WEEKS, # 56 tablet, 0 Refills, Maintenance, 02/16/20 17:54:00 EDT, [facility], 175, cm, 08/24/19 14:14:00 EDT, [...] 2 Refills, Maintenance, 11/02/19 9:02:00 EDT, Suspension, [facility]/pharmacy #[id number], 175, cm, 08/24/19 14:14:00 EDT, Height, 81.2, kg, 02/04/19 1:40:00 EDT, Dry Weight Start Date: 11/02/19 Status: Orderedfluticasone 50 mcg/inh nasal spray See Instructions, SPRAY 1 SPRAY INTO EACH NOSTRIL TWICE A DAY, # 16 Gm, 5 Refills, 01/26/20 9:52:00 EDT, [facility], 30, SPRAY 1 SPRAY INTO EACH NOSTRIL TWICE A DAY, 175, cm, 08/24/19 14:14:00 EDT, Height, 81.2, kg, 02/04/19 1:40:00 EDT, Dry W... Start Date: 01/26/20 Status: Orderedgabapentin 600 mg oral tablet 1 tablet = 600 mg, By Mouth, 4 times a day, to replace prior script, # 120 tablet, 3 Refills, Maintenance, 01/26/20 14:28:00 EDT, Tablet, [facility], 175, cm, 08/24/19 14:14:00 EDT, Height, 81.2, kg, 02/04/19 1:40:00 EDT, Dry Weight Start Date: 01/26/20 Stop Date: 05/25/20 Status: OrderedhydrOXYzine hydrochloride 25 mg oral tablet 1 TO 2 TABLETS, By Mouth, 3 times a day, PRN NEEDED FOR ANXIETY, # 60 tablet, 2 Refills, Maintenance, 02/16/20 17:56:00 EDT, [facility], [facility], cm, 08/24/19 14:14:00 EDT, Height, 81.2, kg, 02/04/19 1:40:00 EDT, Dry Weight Start Date: 02/16/20 Status: Orderedlactulose 10 gm/15 ml oral syrup 30 mL = 20 Gm, By Mouth, 3 times a day, PRN Other, for 30 days, PRN to acheive 3-4 BMs per day fill in prefilled syringes, # 3,000 mL, 11 Refills, Acute 11/25/20 16:37:00 EDT, 12/01/19 16:37:00 EDT, Syrup, [facility], re sent from 10/04/17, 30... [...] 4 Refills, Maintenance, 10/06/19 16:16:00 EDT, Tablet, [facility], 175, cm, 08/24/19 14:14:00 EDT, Height, 81.2, kg, 02/04/19 1:40:00 EDT, Dry Weight Start Date: 10/06/19 Status: Orderedmupirocin 2% topical ointment See Instructions, APPLY TOPICALLY THREE TIMES DAILY (APPLY A THIN FILM), # 22 Gm, 0 Refills, Acute, [facility], 8, APPLY TOPICALLY THREE TIMES DAILY (APPLY A THIN FILM), 175, cm, 08/24/19 14:14:00 EDT, Height, 81.2, kg, 02/04/19 1:40:00 EDT, D... Start Date: 10/30/19 Status: Orderedmupirocin 2% topical ointment See Instructions, APPLY TOPICALLY THREE TIMES DAILY (APPLY A THIN FILM), # 22 Gm, 0 Refills, Maintenance, 02/16/20 17:55:00 EDT, [facility], 8, APPLY TOPICALLY THREE TIMES DAILY (APPLY A THIN FILM), 175, cm, 08/24/19 14:14:00 EDT, Height, 81.2... Start Date: 02/16/20 Status: Orderedmupirocin 2% topical ointment See Instructions, APPLY TOPICALLY THREE TIMES DAILY (APPLY A THIN FILM), # 22 Gm, 0 Refills, Maintenance, 01/26/20 14:28:00 EDT, [facility], 8, APPLY TOPICALLY THREE TIMES [...] 1 Refills, Maintenance, 10/06/19 15:57:00 EDT, Tablet, [facility], 175, cm, 08/24/19 14:14:00 EDT, Height, 81.2, kg, 02/04/19 1:40:00 EDT, Dry Weight Start Date: 10/06/19 Status: Orderedsertraline 50 mg oral tablet 1 tablet, By Mouth, Daily, TAKE ALONG WITH A 100MG TABLET to equal 150mg daily, # 90 tablet, 1 Refills, Maintenance, 10/06/19 15:57:00 EDT, [facility], 175, cm, 08/24/19 14:14:00 EDT, Height, 81.2, kg, 02/04/19 1:40:00 EDT, Dry Weight Start Date: 10/06/19 Status: ErccemsKnj-N-Pmgk oral tablet 1 tablet, By Mouth, Daily, # 30 tablet, 11 Refills, Maintenance, 06/16/19 12:42:00 EST, [facility], 30, TAKE 1 TABLET BY [...] Refills 5, Tot. Refills 5, Soft Stop, 02/16/20 14:53:00 EDT, Instructions Replace Required Details, Route to Pharmacy Electronically, [facility], 175, cm, 08/24/19 14:14:0... Start Date: 02/16/20 Status: OrderedVitamin B1 100 mg oral tablet 1, tablet, By Mouth, Daily, # 90 tablet, Refills 3, Tot. Refills 3, Maintenance, 09/27/19 8:51:00 EDT, Route to Pharmacy Electronically, [facility], 175, cm, 08/24/19 14:14:00 EDT, Height, 81.2, kg, 02/04/19 1:40:00 EDT, Dry Weight Start Date: 09/27/19 Status: OrderedXifaxan 550 mg oral tablet 1 tablet, By Mouth, 2 times a day, # 60 tablet, 0 Refills, Maintenance, 10/30/19 16:57:00 EDT, [facility], 175, cm, 08/24/19 14:14:00 EDT, Height, 81.2, kg, 02/04/19 1:40:00 EDT, Dry Weight Start Date: 10/30/19 Status: OrderedXifaxan 550 mg oral tablet See Instructions, TAKE 1 TABLET BY MOUTH TWICE A DAY, # 60 tablet, 0 Refills, 02/16/20 17:54:00 EDT,[facility], 175, cm, 08/24/19 14:14:00 EDT, Height, [...] Active Vitamin D insufficiency(Confirmed) 08/16/12 Active 1refer dmynl3sdw HEP C,b; immune HEP A,3r/o otltbtchkxyecywv9pazwcy3bnzgwmhb counseling6? [id number] RF ANCA,normal immunofixation,8lumbar puncture November 2011,neg lymenormal IGA neg SSA ,SSBnormal methylmalonic acid homocyseine9 legally blind;[id number] echo November 2014 Social History Social History Type Response Smoking Status 10 or more cigarettes (1/2 p ack or more)/day in last 30 days entered on: 02/04/19 Sex
--- OUTSIDE RECORDS SUMMARY | 2022-03-14 03:15 | XMS_ITS | Continuity of Care Document ---
:1975 Author Organization [facility] Address [address] [place] [address]- Care Team Providers Name Role Phone Jany Baig DO Primary Care Physician Encounter [facility] Date(s): 12/08/19 - 02/16/20 [facility] [address] [place] [address]- [facility] Attending Physician: Allegra Avendano MD Allergies, Adverse Reactions, Alerts Substance Reaction Severity Status ibuprofen1 Hx of GI Bleed Active aspirin2 Hx GI Bleed Active Tylenol3 Cirrhosis Active NSAIDs Active 1pt advised not to take NSAIDs or Tylenol due to underlying liver disease. Also had GI side effects when took too much aspirin in the past.2pt took too much in the past and had GI side [id number] advised not to take d/t underlying liver [...] 08/02/12 Given 1Admin Note: #22Result Comment: [04/29/2017] [id number] Note: [email or web address] Admin Note: 3 RDINJ Medications baclofen 10 mg oral tablet 10 mg, 1, tablet, By Mouth, 3 times a day, # 90 tablet, Refills 4, Tot. Refills 4, Maintenance, 02/16/20 17:55:00 EDT, Route to Pharmacy Electronically, [facility], 175, cm, 08/24/19 14:14:00 EDT, Height, 81.2, kg, 02/04/19 1:40:00 EDT, Dry We... Start Date: 02/16/20 Stop Date: 07/15/20 Status: Orderedchantix 1mg tablet 1 tablet = 1 mg, By Mouth, 2 times a day, with a full glass of water, continue for total of 12 wks, # 56 tablet, 1 Refills, Maintenance, 10/06/19 15:54:00 EDT, Tablet, [facility], 175, cm, 08/24/19 14:14:00 EDT, Height, 81.2, kg, 02/04/19 1:40... Start Date: 10/06/19 Status: Orderedchantix 1mg tablet See Instructions, TAKE 1 TABLET BY MOUTH TWICE A DAY WITH A FULL GLASS OF WATER AND CONTINUE FOR A TOTAL OF 12 WEEKS, # 56 tablet, 0 Refills, Maintenance, 02/16/20 17:54:00 EDT, [facility], 175, cm, 08/24/19 14:14:00 EDT, Height, 81.2, kg, ... Start Date: 02/16/20 Status: OrderedCo Q-10 100 mg oral capsule 1 capsule, By Mouth, 4 times a day, # 120 capsule, 11 Refills, Maintenance, 11/21/19 10:36:00 EDT, [facility]/pharmacy #[id number], 175, cm, 08/24/19 14:14:00 EDT, Height, 81.2, kg, 02/04/19 1:40:00 EDT, Dry Weight Start Date: 11/21/19 Stop Date: 11/15/20 Status: OrderedEngerix-B 20 mcg/mL intramuscular suspension = 20 mcg, Intramuscular, Every 30 days, rpt at 1 and 6 months, # 1 mL, 2 Refills, Maintenance, 11/02/19 9:02:00 EDT, Suspension, [facility]/pharmacy #[id number], 175, cm, 08/24/19 14:14:00 EDT, Height, 81.2, kg, 02/04/19 1:40:00 EDT, Dry Weight Start Date: 11/02/19 Status: Orderedfluticasone 50 mcg/inh nasal spray See Instructions, SPRAY 1 SPRAY INTO EACH NOSTRIL TWICE A DAY, # 16 Gm, 5 Refills, 01/26/20 9:52:00 EDT, [facility], 30, SPRAY 1 SPRAY INTO EACH NOSTRIL TWICE A DAY, 175, cm, 08/24/19 14:14:00 EDT, Height, 81.2, kg, 02/04/19 1:40:00 EDT, Dry W... Start Date: 01/26/20 Status: Orderedgabapentin 600 mg oral tablet 1 tablet = 600 mg, By Mouth, 4 times a day, to replace prior script, # 120 tablet, 3 Refills, Maintenance, 01/26/20 14:28:00 EDT, Tablet, [facility], 175, cm, 08/24/19 14:14:00 EDT, Height, 81.2, kg, 02/04/19 1:40:00 EDT, Dry Weight Start Date: 01/26/20 Stop Date: 05/25/20 Status: OrderedhydrOXYzine hydrochloride 25 mg oral tablet 1 TO 2 TABLETS, By Mouth, 3 times a day, PRN NEEDED FOR ANXIETY, # 60 tablet, 2 Refills, Maintenance, 02/16/20 17:56:00 EDT, [facility], 175, cm, 08/24/19 14:14:00 [...] 12/01/19 16:37:00 EDT, Syrup, [facility], re sent from 10/04/17, [...] 4 Refills, Maintenance, 10/06/19 16:16:00 EDT, Tablet, [facility], 175, cm, 08/24/19 14:14:00 EDT, Height, 81.2, kg, 02/04/19 1:40:00 EDT, Dry Weight Start Date: 10/06/19 Status: Orderedmupirocin 2% topical ointment See Instructions, APPLY TOPICALLY THREE TIMES DAILY (APPLY A THIN FILM), # 22 Gm, 0 Refills, Acute, [facility], 8, APPLY TOPICALLY THREE TIMES DAILY (APPLY A THIN FILM), 175, cm, 08/24/19 14:14:00 EDT, Height, 81.2, kg, 02/04/19 1:40:00 EDT, D... Start Date: 10/30/19 Status: Orderedmupirocin 2% topical ointment See Instructions, APPLY TOPICALLY THREE TIMES DAILY (APPLY A THIN FILM), # 22 Gm, 0 Refills, Maintenance, 02/16/20 17:55:00 EDT, [facility], 8, APPLY TOPICALLY THREE TIMES DAILY (APPLY A THIN FILM), 175, cm, 08/24/19 14:14:00 EDT, Height, 81.2... Start Date: 02/16/20 Status: Orderedmupirocin 2% topical ointment See Instructions, APPLY TOPICALLY THREE TIMES DAILY (APPLY A THIN FILM), # 22 Gm, 0 Refills, Maintenance, 01/26/20 14:28:00 EDT, [facility], 8, APPLY TOPICALLY THREE [...] 10/06/19 15:57:00 EDT, Tablet, [facility], 175, cm, 08/24/19 14:14:00 EDT, Height, 81.2, kg, 02/04/19 1:40:00 EDT, Dry Weight Start Date: 10/06/19 Status: Orderedsertraline 50 mg oral tablet 1 tablet, By Mouth, Daily, TAKE ALONG WITH A 100MG TABLET to equal 150mg daily, # 90 tablet, 1 Refills, Maintenance, 10/06/19 15:57:00 EDT, [facility], 175, cm, 08/24/19 14:14:00 EDT, Height, 81.2, kg, 02/04/19 1:40:00 EDT, Dry Weight Start Date: 10/06/19 Status: LgbsagzKxv-G-Tskc oral tablet 1 tablet, By Mouth, Daily, # 30 tablet, 11 Refills, Maintenance, 06/16/19 12:42:00 EST, [facility], 30, TAKE 1 TABLET [...] Replace Required Details, Route to Pharmacy Electronically, [facility], 175, cm, 08/24/19 14:14:0... Start Date: 02/16/20 Status: OrderedVitamin B1 100 mg oral tablet 1, tablet, By Mouth, Daily, # 90 tablet, Refills 3, Tot. Refills 3, Maintenance, 09/27/19 8:51:00 EDT, Route to Pharmacy Electronically, [facility], 175, cm, 08/24/19 14:14:00 EDT, Height, 81.2, kg, 02/04/19 1:40:00 EDT, Dry Weight Start Date: 09/27/19 Status: OrderedXifaxan 550 mg oral tablet 1 tablet, By Mouth, 2 times a day, # 60 tablet, 0 Refills, Maintenance, 10/30/19 16:57:00 EDT, [facility], 175, cm, 08/24/19 14:14:00 EDT, Height, 81.2, kg, 02/04/19 1:40:00 EDT, Dry Weight Start Date: 10/30/19 Status: OrderedXifaxan 550 mg oral tablet See Instructions, TAKE 1 TABLET BY MOUTH TWICE A DAY, # 60 tablet, 0 Refills, 02/16/20 17:54:00 EDT,[facility], 175, cm, 08/24/19 14:14:00 EDT, Height, [...] Active Vitamin D insufficiency(Confirmed) 08/16/12 Active 1refer qtyci0kib HEP C,b; immune HEP A,3r/o xaavhbmlkfhznerl5fotmlc2wdceholl counseling6? cvajbsh1oqn RF ANCA,normal immunofixation,8lumbar puncture November 2011,neg lymenormal IGA neg SSA ,SSBnormal methylmalonic acid homocyseine9 legally blind;[id number] echo November 2014 Social History Social History Type Response Smoking Status 10 or more cigarettes (1/2 p ack or more)/day in last 30 days entered on: 02/04/19 Sex
--- OUTSIDE RECORDS SUMMARY | 2022-03-14 03:15 | XMS_ITS | Continuity of Care Document ---
:1975 Author Organization [facility] Address [address] [place] [address]- Care Team Providers Name Role Phone Jany Baig DO Primary Care Physician Encounter [facility] Date(s): 09/21/19 - 09/28/19 [facility] [address] [place] [address]- [facility] Attending Physician: Jany Baig DO Allergies, Adverse [...] in the past and had GI side [id number] advised not to take d/t underlying liver [...] acel (oldterm) 08/02/12 Given 1Result Comment: [04/29/2017] [id number] Note: [id number] Note: 3 [id number] Note: #2 Medications chantix 1mg tablet 1 tablet = 1 mg, By Mouth, 2 times a day, with a full glass of water, continue for total of 12 wks, # 56 tablet, 1 Refills, Maintenance, 08/24/19 14:54:00 EDT, [facility], [facility], cm, 08/24/19 14:14:00 EDT, Height, 81.2, kg, 02/04/19 1:40... Start Date: 08/24/19 Status: OrderedCo Q-10 100 mg oral capsule 1 capsule, By Mouth, 3 times a day, # 90 capsule, 11 Refills, Maintenance, 06/16/19 12:41:00 EST, [facility], 175, cm, 02/06/19 7:59:00 EDT, Height, [...] 2 Refills, Maintenance, 09/04/19 13:01:00 EDT, Suspension, [id number], 175, cm, 08/24/19 14:14:00 EDT, Height, 81.2, kg, 02/04/19 1:40:00 EDT, Dry Weight Start Date: 09/04/19 Status: Orderedfluticasone 50 mcg/inh nasal spray See Instructions, SPRAY 1 SPRAY INTO EACH NOSTRIL TWICE A DAY, # 16 Gm, 3 Refills, Maintenance, [facility], 30, SPRAY 1 SPRAY INTO EACH NOSTRIL TWICE A DAY, 175, cm, 02/06/19 7:59:00 EDT, Height, 81.2, kg, 02/04/19 1:40:00 EDT, Dry Weight Start Date: 06/16/19 Status: Orderedfolic acid 1 mg oral tablet 1 mg, 1, tablet, By Mouth, Daily, for 30 days, # 30 tablet, Refills 1, Tot. Refills 1, Physician Stop 11/11/19 7:57:00 EDT, 09/12/19 7:57:00 EDT, Route to Pharmacy Electronically, [facility], [place], cm, 08/24/19 14:14:00 EDT, Height, 81.2, kg, 0... Start Date: 09/12/19 Stop Date: 11/11/19 Status: Orderedgabapentin 600 mg oral tablet 1 [...] NEEDED FOR ANXIETY, # 60 tablet,1 Refills, Physician Stop 10/12/19 7:00:00 EDT, 09/12/19 7:58:00 EDT, [facility], 175, cm, 08/24/19 14:14:00 EDT, Height, 81.2, kg, 02/04/19 1... Start Date: 09/12/19 Stop Date: 10/12/19 Status: Orderedlactulose 10 gm/15 ml oral syrup 30 mL = 20 Gm, By Mouth, 3 times a day, PRN Other, for 30 days, PRN to acheive 3-4 BMs per day, # 3,000 mL, 11 Refills, Acute 06/16/20 12:33:00 EST, 06/22/19 12:33:00 EST, Syrup, [facility], resent from 10/04/17, 30 mL By [...] film, # 15 Gm, 0 Refills, Maintenance, 09/12/19 7:59:00 EDT, Ointment, [facility], 1 application Topically 3 times a day,Instr:apply a thinfilm, 175, cm, 08/24/19 14:14:00 EDT, Height, 81.... Start Date: 09/12/19 Status: Orderednaltrexone 50 mg oral tablet 1 tablet = 50 mg, By Mouth, Daily, through clean slate, # 30 tablet, 0 Refills, Maintenance, 05/10/18 9:30:24 EST, Tablet Start Date: 05/10/18 Status: Orderedpantoprazole 40 mg oral delayed release tablet 1 tablet, By Mouth, 2 times a day, # 60 tablet, 1 Refills, Maintenance, 09/12/19 8:00:00 EDT, 175, cm, 08/24/19 14:14:00 EDT, Height, 81.2, kg, 02/04/19 1:40:00 EDT, Dry Weight Start Date: 09/12/19 Status: Orderedsertraline 100 mg oral tablet 1 tablet = 100 mg, By Mouth, Daily, combine with 50mg tab to equal 150mg daily, # 90 tablet, 0 Refills, Maintenance, 06/26/19 20:32:00 EST, Tablet, [facility], 175, cm, 06/20/19 12:00:00 EST, Height, 81.2, kg, 02/04/19 1:40:00 EDT, Dry Weight Start Date: 06/26/19 Status: Orderedsertraline 50 mg oral tablet 1 tablet, By Mouth, Daily, TAKE ALONG WITH A 100MG TABLET to equal 150mg daily, # 90 tablet, 0 Refills, Maintenance, 06/22/19 12:32:00 EST, [facility], 175, cm, 06/20/19 12:00:00 EST, Height, 81.2, kg, 02/04/19 1:40:00 EDT, Dry Weight Start Date: 06/22/19 Status: CapaguqMmn-H-Hzcl oral tablet 1 tablet, By Mouth, Daily, # 30 tablet, 11 Refills, Maintenance, 06/16/19 12:42:00 EST, [facility], 30, TAKE 1 TABLET BY MOUTH [...] Replace Required Details, Route to Pharmacy Electronically, [facility], 175, cm, 08/24/19 14:14:0... Start Date: 09/14/19 Status: OrderedVitamin B1 100 mg oral tablet 1, tablet, By Mouth, Daily, # 90 tablet, Refills 3, Tot. Refills 3, Maintenance, 09/27/19 8:51:00 EDT, Route to Pharmacy Electronically, [facility], 175, cm, 08/24/19 14:14:00 EDT, Height, 81.2, kg, 02/04/19 1:40:00 EDT, Dry Weight Start Date: 09/27/19 Status: OrderedXifaxan 550 mg oral tablet 1 tablet, By Mouth, 2 times a day, # 60 tablet, 1 Refills, Maintenance, 09/14/19 14:41:00 EDT, [facility], 175, cm, 08/24/19 14:14:00 EDT, Height, 81.2, kg, 02/04/19 1:40:00 EDT, Dry Weight Start Date: 09/14/19 Status: Ordered Problem List Condition Effective Dates [...] Active Vitamin D insufficiency(Confirmed) 08/16/12 Active 1refer [id number] HEP C,b; immune HEP A,3r/o daufguluykogecvq9myqvku6vquhkrpb counseling6? ztqwcyl4nid RF ANCA,normal immunofixation,8lumbar puncture November 2011,neg lymenormal IGA neg SSA ,SSBnormal methylmalonic acid homocyseine9 legally blind;pyxkbegeak87qjmppd echo November 2014 Social History Social History Type Response Smoking Status 10 or more cigarettes (1/2 p ack or more)/day in last 30 days entered on: 02/04/19 Sex
--- OUTSIDE RECORDS SUMMARY | 2022-03-14 03:15 | XMS_ITS | Continuity of Care Document ---
:1975 Author Organization [facility] Address [address] [place] [address]- Care Team Providers Name Role Phone Jany Baig DO Primary Care Physician Encounter [facility] Date(s): 10/04/20 - 11/03/20 [facility] [address] [place] [address]- Allergies, Adverse Reactions, Alerts Substance Reaction Severity Status ibuprofen1 Hx of GI Bleed Active aspirin2 Hx GI Bleed Active Tylenol3 Cirrhosis Active NSAIDs Active 1pt advised not to take NSAIDs or Tylenol due to underlying liver disease. Also had GI side effects when took too much aspirin in the past.2pt took too much in the past and had GI side [id number] advised not to take d/t underlying liver [...] 08/02/12 Given 1Admin Note: #22Result Comment: [04/29/2017] [id number] Note: [email or web address] Admin Note: 3 RDINJ Medications baclofen 10 mg oral tablet 1, tablet, By Mouth, 3 times a day, # 90 tablet, Refills 0, Tot. Refills 0, Maintenance, 10/07/20 16:49:00 EDT, Route to Pharmacy Electronically, [facility], 178, cm, 08/31/20 11:25:00 EDT, Height, 84.9, kg, 08/31/20 1:07:00 EDT, Dry Weight Start Date: 10/07/20 Status: Orderedchantix 1mg tablet 1 tablet, By Mouth, 2 times a day, # 56 tablet, 0 Refills, Maintenance, 11/01/20 15:08:00 EDT, [facility], 178, cm, 10/22/20 13:17:00 EDT, Height, 84.9, kg, 08/31/20 1:07:00 EDT, Dry Weight Start Date: 11/01/20 Status: OrderedCo Q-10 100 mg oral capsule See Instructions, TAKE 1 CAPSULE BY MOUTH FOUR TIMES DAILY, # 120 capsule, 7 Refills, Maintenance, [facility], 178, cm, 10/22/20 13:17:00 EDT, Height, [...] # 16 Gm, 5 Refills, 07/09/20 11:38:00EST, [facility], 30, SPRAY 1 SPRAY INTO EACH NOSTRIL TWICE A DAY, 175, cm, 04/02/20 0:35:00 EDT, Height, 100, kg, 04/02/20 0:35:00 EDT, Dry We... Start Date: 07/09/20 Status: Orderedgabapentin 600 mg oral tablet 1 tablet, By Mouth, 4 times a day, # 120 tablet, 0 Refills, Maintenance, 10/07/20 16:49:00 EDT, [facility], 178, cm, 08/31/20 11:25:00 EDT, Height, 84.9, kg, 08/31/20 1:07:00 EDT, Dry Weight Start Date: 10/07/20 Status: OrderedhydrOXYzine hydrochloride 25 mg oral tablet 1 TO 2 TABLETS, By Mouth, 3 times a day, PRN NEEDED FOR ANXIETY (VIAL), # 60 tablet, 3 Refills, Maintenance, 10/07/20 16:49:00 EDT, [facility], 178, cm, 08/31/20 11:25:00 EDT, Height, 84.9, kg, 08/31/20 1:07:00 EDT, Dry Weight Start Date: 10/07/20 Status: OrderedKeppra 500 mg oral tablet 1 tablet = 500 mg, By Mouth, 2 times a day, # 14 tablet, 0 Refills, Maintenance, 11/01/20 11:59:00 EDT, Tablet, [facility] 3, Partial fill upon patient request if [...] 11/25/20 16:37:00 EDT, 12/01/19 16:37:00 EDT, Syrup, [facility], re sent from 10/04/17, 30... Start Date: 12/01/19 Stop Date: 11/25/20 Status: Orderedmelatonin 3 mg oral tablet 1 tablet = 3 mg, By Mouth, Daily at bedtime, PRN for insomnia, # 60 tablet, 4 Refills, Maintenance, 07/18/20 17:30:00 EST, Tablet, [facility], 175, cm, 04/02/20 0:35:00 EDT, Height, [...] Refills, Maintenance, 10/06/19 15:57:00 EDT, Tablet, [facility], 175, cm, 08/24/19 14:14:00 EDT, Height, 81.2, kg, 02/04/19 1:40:00 EDT, Dry Weight Start Date: 10/06/19 Status: Orderedsertraline 50 mg oral tablet 1 tablet, By Mouth, Daily, TAKE ALONG WITH A 100MG TABLET to equal 150mg daily, # 90 tablet, 1 Refills, Maintenance, 10/06/19 15:57:00 EDT, [facility], 175, cm, 08/24/19 14:14:00 EDT, Height, [...] 02/04/19 1:40:00 EDT,... Start Date: 03/11/20 Status: VrlshmvMov-K-Rzux oral tablet See Instructions, TAKE 1 TABLET BY MOUTH ONCE A DAY, # 30 tablet, 10 Refills, Maintenance, [facility], 28, TAKE 1 [...] Refills, Maintenance, 10/22/20 17:52:00 EDT, Tablet, [facility]/pharmacy #[id number], Partial fill upon patient [...] Required Details, Route to Pharmacy Electronically, [facility], 178, cm, 10/22/20... Start Date: 11/01/20 Status: OrderedVitamin B1 100 mg oral tablet 1, tablet, By Mouth, Daily, # 90 tablet, Refills 2, Tot. Refills 0, Acute, 09/05/20 17:32:00 EDT, Route to Pharmacy Electronically, [facility], 178, cm, 08/31/20 11:25:00 EDT, Height, [...] Active Vitamin D insufficiency(Confirmed) 08/16/12 Active 1refer diimj5kck HEP C,b; immune HEP A,3r/o vbeoupioaggsoehr0zqxktq8gdkrdzfv counseling6? izzjqkb9fpf RF ANCA,normal immunofixation,8lumbar puncture November 2011,neg lymenormal IGA neg SSA ,SSBnormal methylmalonic acid homocyseine9 legally blind;[id number] echo November 2014 Social History Social History Type Response Smoking Status 10 or more cigarettes (1/2 p ack or more)/day in last 30 days entered on: 02/04/19 Sex
--- OUTSIDE RECORDS SUMMARY | 2022-03-14 03:15 | XMS_ITS | Continuity of Care Document ---
:1975 Author Organization [address], [address] [place] [address]- Care Team Providers Name Role Phone Jany Baig DO Primary Care Physician Encounter [facility] Date(s): 12/23/20 - 01/22/[address], [address] [place] [address]- Allergies, Adverse Reactions, Alerts Substance Reaction Severity Status ibuprofen1 Hx of GI Bleed Active aspirin2 Hx GI Bleed Active Tylenol3 Cirrhosis Active NSAIDs Active 1pt advised not to take NSAIDs or Tylenol due to underlying liver disease. Also had GI side effects when took too much aspirin in the past.2pt took too much in the past and had GI side [id number] advised not to take d/t underlying liver [...] 08/02/12 Given 1Admin Note: #22Result Comment: [04/29/2017] [id number] Note: [email or web address] Admin Note: 3 RDINJ Medications baclofen 10 mg oral tablet 1, tablet, By Mouth, 3 times a day, # 90 tablet, Refills 0, Tot. Refills 0, Maintenance, 01/20/21 15:04:00 EDT, Route to Pharmacy Electronically, [facility], 178, cm, 01/07/21 17:59:00 EDT, Height, 81.4, kg, 12/03/20 13:52:00 EDT, Dry Weight Start Date: 01/20/21 Status: Orderedchantix 1mg tablet 1 tablet, By Mouth, 2 times a day, # 56 tablet, 0 Refills, Acute, 11/22/20 16:13:00 EDT, [facility], 178, cm, 11/12/20 15:32:00 EDT, Height, 84.9, kg, 08/31/20 1:07:00 EDT, Dry Weight Start Date: 11/22/20 Status: OrderedCo Q-10 100 mg oral capsule See Instructions, TAKE 1 CAPSULE BY MOUTH FOUR TIMES DAILY, # 120 capsule, 7 Refills, Maintenance, [facility], 178, cm, 10/22/20 13:17:00 EDT, Height, 84.9, kg, 08/31/20 1:07:00 EDT, Dry Weight Start Date: 11/01/20 Status: OrderedCo Q-10 100 mg oral capsule 1 capsule, By Mouth, 4 times a day, # 120 capsule, 11 Refills, Maintenance, 11/21/19 10:36:00 EDT, [facility]/pharmacy #[id number], 175, cm, 08/24/19 14:14:00 EDT, Height, 81.2, kg, 02/04/19 1:40:00 EDT, Dry Weight Start Date: 11/21/19 Stop Date: 11/15/20 Status: Orderedfluticasone 50 mcg/inh nasal spray See Instructions, USE 1 SPRAY INTO EACH NOSTRIL TWICE A DAY, # 16 Gm, 5 Refills, Maintenance, [facility], 30, USE 1 SPRAY INTO EACH NOSTRIL TWICE A DAY, 178, cm, 01/07/21 17:59:00 EDT, Height, 81.4, kg, 12/03/20 13:52:00 EDT, Dry Weight Start Date: 01/17/21 Status: Orderedgabapentin 600 mg oral tablet 1 tablet, By Mouth, 4 times a day, # 120 tablet, 0 Refills, Maintenance, 01/20/21 15:04:00 EDT, [facility], 178, cm, 01/07/21 17:59:00 EDT, Height, 81.4, kg, 12/03/20 13:52:00 EDT, Dry Weight Start Date: 01/20/21 Status: OrderedhydrOXYzine hydrochloride 25 mg oral tablet 1 TO 2 TABLETS, By Mouth, 3 times a day, PRN NEEDED FOR ANXIETY (VIAL), # 60 tablet, 3 Refills, Maintenance, 10/07/20 16:49:00 EDT, [facility], 178, cm, 08/31/20 11:25:00 EDT, Height, 84.9, kg, 08/31/20 1:07:00 EDT, Dry Weight Start Date: 10/07/20 Status: OrderedKeppra 500 mg oral tablet 1 tablet = 500 mg, By Mouth, 2 times a day, # 14 tablet, 0 Refills, Maintenance, 11/01/20 11:59:00 EDT, Tablet, [facility] 3, Partial fill upon patient request if the prescription is for a schedule II opioid drug., 178, cm, 10/22/20 13:17:... Start Date: 11/01/20 Stop Date: 11/08/20 Status: Orderedmelatonin 3 mg oral tablet 1 tablet = 3 mg, By Mouth, Daily at bedtime, PRN for insomnia, # 60 tablet, 4 Refills, Maintenance, 07/18/20 17:30:00 EST, Tablet, [facility], 175, cm, 04/02/20 0:35:00 [...] 1 Refills, Maintenance, 10/06/19 15:57:00 EDT, Tablet, [facility], 175, cm, 08/24/19 14:14:00 EDT, Height, 81.2, kg, 02/04/19 1:40:00 EDT, Dry Weight Start Date: 10/06/19 Status: Orderedsertraline 50 mg oral tablet 1 tablet, By Mouth, Daily, TAKE ALONG WITH A 100MG TABLET to equal 150mg daily, # 90 tablet, 1 Refills, Maintenance, 10/06/19 15:57:00 EDT, [facility], 175, cm, 08/24/19 14:14:00 EDT, Height, 81.2, kg, 02/04/19 1:40:00 EDT, Dry Weight Start Date: 10/06/19 Status: Orderedsildenafil 50 mg oral tablet 1 tablet = 50 mg, By Mouth, Daily, PRN erectile dysfunction, 1 hour before sexual activity, # 6 tablet, 5 Refills, Maintenance, 03/11/20 14:37:00 EDT, Tablet, [facility]/pharmacy #[id number], 175, cm, 08/24/19 14:14:00 EDT, Height, 81.2, kg, 02/04/19 1:40:00 EDT,... Start Date: 03/11/20 Status: RlleunpDek-O-Qkle oral tablet See Instructions, TAKE 1 TABLET BY MOUTH ONCE A DAY, # 30 tablet, 10 Refills, Maintenance, [facility], 28, TAKE 1 TABLET BY MOUTH [...] Maintenance, 10/22/20 17:52:00 EDT, Tablet, [facility]/pharmacy #[id number], Partial fill upon patient request [...] Replace Required Details, Route to Pharmacy Electronically, [facility], 178, cm, 10/22/20... Start Date: 11/01/20 Status: OrderedVitamin B1 100 mg oral tablet 1, tablet, By Mouth, Daily, # 90 tablet, Refills 2, Tot. Refills 0, Acute, 09/05/20 17:32:00 EDT, Route to Pharmacy Electronically, [facility], 178, cm, 08/31/20 11:25:00 EDT, Height, 84.9, kg,08/31/20 1:07:00 EDT, Dry Weight Start Date: 09/05/20 Status: OrderedXifaxan 550 mg oral tablet 1 tablet, By Mouth, 2 times a day, # 60 tablet, 0 Refills, Maintenance, 04/16/20 14:45:00 EST, [facility]/pharmacy #[id number], 175, cm, 04/02/20 0:35:00 EDT, [...] Active Vitamin D insufficiency(Confirmed) 08/16/12 Active 1refer yfyln4ohz HEP C,b; immune HEP A,3r/o abjpoabhfzjlachz0kjlqxo2tarufcyj counseling6? ynobcyk7icw RF ANCA,normal immunofixation,8lumbar puncture November 2011,neg lymenormal IGA neg SSA ,SSBnormal methylmalonic acid homocyseine9 legally blind;[id number] echo November 2014 Social History Social History Type Response Smoking Status 10 or more cigarettes (1/2 p ack or more)/day in last 30 days entered on: 02/04/19 Sex
--- OUTSIDE RECORDS SUMMARY | 2022-03-14 03:15 | XMS_ITS | Continuity of Care Document ---
:1975 Author Organization [facility] Address [address] [place] [address]- Care Team Providers Name Role Phone Jany Baig DO Primary Care Physician Encounter [facility] Date(s): 02/27/21 - 03/06/21 [facility] [address] [place] [address]- Attending Physician: Jany Baig DO Allergies, Adverse [...] in the past and had GI side [id number] advised not to take d/t underlying liver [...] acel (oldterm) 08/02/12 Given 1Result Comment: [04/29/2017] [id number] Note: [id number] Note: 3 [id number] Note: #2 Medications baclofen 10 mg oral tablet 1, tablet, By Mouth, 3 times a day, # 90 tablet, Refills 0, Route to Pharmacy Electronically, [facility], 174, cm, 02/11/21 12:09:00 EDT, Height, 86.6, kg, 02/06/21 14:20:00 EDT, Dry Weight Start Date: 02/19/21 Status: Orderedchantix 1mg tablet 1 tablet, By Mouth, 2 times a day, # 56 tablet, 0 Refills, Acute, 11/22/20 16:13:00 EDT, [facility], 178, cm, 11/12/20 15:32:00 EDT, Height, 84.9, kg, 08/31/20 1:07:00 EDT, Dry Weight Start Date: 11/22/20 Status: OrderedCo Q-10 100 mg oral capsule See Instructions, TAKE 1 CAPSULE BY MOUTH FOUR TIMES DAILY, # 120 capsule, 7 Refills, Maintenance, [facility], 178, cm, 10/22/20 13:17:00 EDT, Height, 84.9, kg, 08/31/20 1:07:00 EDT, Dry Weight Start Date: 11/01/20 Status: OrderedCo Q-10 100 mg oral capsule 1 capsule, By Mouth, 4 times a day, # 120 capsule, 11 Refills, Maintenance, 11/21/19 10:36:00 EDT, [facility]/pharmacy #[id number], 175, cm, 08/24/19 14:14:00 EDT, Height, 81.2, kg, 02/04/19 1:40:00 EDT, Dry Weight Start Date: 11/21/19 Stop Date: 11/15/20 Status: Orderedfluticasone 50 mcg/inh nasal spray See Instructions, USE 1 SPRAY INTO EACH NOSTRIL TWICE A DAY, # 16 Gm, 5 Refills, Maintenance, [facility], 30, USE 1 SPRAY INTO EACH NOSTRIL TWICE A DAY, 178, cm, 01/07/21 17:59:00 EDT, Height, 81.4, kg, 12/03/20 13:52:00 EDT, Dry Weight Start Date: 01/17/21 Status: Orderedgabapentin 600 mg oral tablet 1 tablet, By Mouth, 4 times a day, # 120 tablet, 0 Refills, [facility], 174, cm, 02/11/21 12:09:00 EDT, Height, 86.6, kg, 02/06/21 14:20:00 EDT, Dry Weight Start Date: 02/19/21 Status: OrderedhydrOXYzine hydrochloride 25 mg oral tablet 1 TO 2 TABLETS, By Mouth, 3 times a day, PRN NEEDED FOR ANXIETY (VIAL), # 60 tablet, 2 Refills, [facility], 174, cm, 02/11/21 12:09:00 EDT, Height, 86.6, kg, 02/06/21 14:20:00 EDT, Dry Weight Start Date: 02/19/21 Status: Orderedmelatonin 3 mg oral tablet 1 tablet = 3 mg, By Mouth, Daily at bedtime, PRN for insomnia, # 60 tablet, 4 Refills, Maintenance, 07/18/20 17:30:00 EST, Tablet, [facility], 175, cm, 04/02/20 0:35:00 EDT, Height, [...] Maintenance, 10/06/19 15:57:00 EDT, Tablet, [facility], 175, cm, 08/24/19 14:14:00 EDT, Height, 81.2, kg, 02/04/19 1:40:00 EDT, Dry Weight Start Date: 10/06/19 Status: Orderedsertraline 50 mg oral tablet 1 tablet, By Mouth, Daily, TAKE ALONG WITH A 100MG TABLET to equal 150mg daily, # 90 tablet, 1 Refills, Maintenance, 10/06/19 15:57:00 EDT, [facility], 175, cm, 08/24/19 14:14:00 EDT, Height, 81.2, kg, 02/04/19 1:40:00 EDT, Dry Weight Start Date: 10/06/19 Status: Orderedsildenafil 50 mg oral tablet 1 tablet = 50 mg, By Mouth, Daily, PRN erectile dysfunction, 1 hour before sexual activity, # 6 tablet, 5 Refills, Maintenance, 03/11/20 14:37:00 EDT, Tablet, [facility]/pharmacy #[id number], 175, cm, 08/24/19 14:14:00 EDT, Height, 81.2, kg, 02/04/19 1:40:00 EDT,... Start Date: 03/11/20 Status: FxqfthnUft-A-Fxef oral tablet See Instructions, TAKE 1 TABLET [...] 0 Refills, Maintenance, 10/22/20 17:52:00 EDT, Tablet, [facility]/pharmacy #[id number], Partial fill upon patient request if the prescription is for a schedule II opioid drug., 178, cm, 10/22/20 13:17:00 EDT, Height... Start Date: 10/22/20 Status: OrderedtraZODone 50 mg oral tablet See Instructions, TAKE 1 TO 2 TABLETS BY MOUTH AT BEDTIME (ONE DOSE IN VIAL), # 60 tablet, Refills 5, Instructions Replace Required Details, Route to Pharmacy Electronically, [facility], 174, cm, 02/11/21 12:09:00 EDT, Height, 86.6, kg, ... Start Date: 02/15/21 Status: OrderedVitamin B1 100 mg oral tablet 1, tablet, By Mouth, Daily, # 90 tablet, Refills 2, Tot. Refills 0, Acute, 09/05/20 17:32:00 EDT, Route to Pharmacy Electronically, [facility], 178, cm, 08/31/20 11:25:00 EDT, Height, 84.9, kg,08/31/20 1:07:00 EDT, Dry Weight Start Date: 09/05/20 Status: OrderedXifaxan 550 mg oral tablet 1 tablet, By Mouth, 2 times a day, # 60 tablet, 0 Refills, Maintenance, 04/16/20 14:45:00 EST, [facility]/pharmacy #[id number], 175, cm, 04/02/20 0:35:00 EDT, [...] Active Vitamin D insufficiency(Confirmed) 08/16/12 Active 1refer vikua1ywj HEP C,b; immune HEP A,3r/o rhpkisvbaqckwelh9ssbygf1vfxjxygv counseling6? wuqugxw4ezt RF ANCA,normal immunofixation,8lumbar puncture November 2011,neg lymenormal IGA neg SSA ,SSBnormal methylmalonic acid homocyseine9 legally blind;[id number] echo November 2014 Vital Signs Most recent to oldest [Reference Range]: 1 2 Height 174 cm 174.4 cm (02/27/21 3:17 PM) (02/27/21 2:06 PM) Weight 81 kg (02/27/21 2:06 PM) Oxygen Saturation [94-100 %] 98 % (02/27/21 2:06 PM) Pulse Rate [55-90 bpm] 84 bpm (02/27/21 2:06 PM) Body Mass Index [18.5-24.99] 26.63 *H* (02/27/21 2:06 PM) Blood Pressure [90-138/55-84 mm Hg] 132/68 mm Hg 148/ 87 mm Hg (02/27/21 3:17 PM) *H* (02/27/21 2:06 PM) Temperature [96.8-100.4 DegF] 98.7 DegF (02/27/21 2:06 PM) Mode of Delivery (Oxygen) Room air (02/27/21 2:06 PM) Blood pressure sites Arm, left Arm, left (02/27/21 3:17 PM) (02/27/21 2:06 PM) Temperature Route Temporal (02/27/21 2:06 PM) Dry Weight 81 kg (02/27/21 2:06 PM) Weight Obtained Via Standing scale (02/27/21 2:06 PM) Social History Social History Type Response Smoking Status 10 or more cigarettes (1/2 p ack or more)/day in last 30 days entered on: 02/04/19 Sex
--- OUTSIDE RECORDS SUMMARY | 2022-03-14 03:15 | XMS_ITS | Continuity of Care Document ---
:1975 Author Organization [facility] Address [address] [place] [address]- Care Team Providers Name Role Phone Jany Baig DO Primary Care Physician Encounter [facility] Date(s): 10/25/20 - 11/24/20 [facility] [address] [place] [address]- Allergies, Adverse Reactions, Alerts Substance Reaction Severity Status ibuprofen1 Hx of GI Bleed Active aspirin2 Hx GI Bleed Active Tylenol3 Cirrhosis Active NSAIDs Active 1pt advised not to take NSAIDs or Tylenol due to underlying liver disease. Also had GI side effects when took too much aspirin in the past.2pt took too much in the past and had GI side [id number] advised not to take d/t underlying liver [...] 08/02/12 Given 1Admin Note: #22Result Comment: [04/29/2017] [id number] Note: [email or web address] Admin Note: 3 RDINJ Medications baclofen 10 mg oral tablet 1, tablet, By Mouth, 3 times a day, # 90 tablet, Refills 0, Tot. Refills 0, Maintenance, 11/22/20 16:13:00 EDT, Route to Pharmacy Electronically, [facility], 178, cm, 11/12/20 15:32:00 EDT, Height, 84.9, kg, 08/31/20 1:07:00 EDT, Dry Weight Start Date: 11/22/20 Status: Orderedchantix 1mg tablet 1 tablet, By Mouth, 2 times a day, # 56 tablet, 0 Refills, Acute, 11/22/20 16:13:00 EDT, [facility], 178, cm, 11/12/20 15:32:00 EDT, Height, 84.9, kg, 08/31/20 1:07:00 EDT, Dry Weight Start Date: 11/22/20 Status: OrderedCo Q-10 100 mg oral capsule See Instructions, TAKE 1 CAPSULE BY MOUTH FOUR TIMES DAILY, # 120 capsule, 7 Refills, Maintenance, [facility], 178, cm, 10/22/20 13:17:00 EDT, Height, 84.9, kg, 08/31/20 1:07:00 EDT, Dry Weight Start Date: 11/01/20 Status: OrderedCo Q-10 100 mg oral capsule 1 capsule, By Mouth, 4 times a day, # 120 capsule, 11 Refills, Maintenance, 11/21/19 10:36:00 EDT, [facility]/pharmacy #[id number], 175, cm, 08/24/19 14:14:00 EDT, Height, 81.2, kg, 02/04/19 1:40:00 EDT, Dry Weight Start Date: 11/21/19 Stop Date: 11/15/20 Status: Orderedfluticasone 50 mcg/inh nasal spray See Instructions, SPRAY 1 SPRAY INTO EACH NOSTRIL TWICE A DAY, # 16 Gm, 5 Refills, 07/09/20 11:38:00EST, [facility], 30, SPRAY 1 SPRAY INTO EACH NOSTRIL TWICE A DAY, 175, cm, 04/02/20 0:35:00 EDT, Height, 100, kg, 04/02/20 0:35:00 EDT, Dry We... Start Date: 07/09/20 Status: Orderedgabapentin 600 mg oral tablet 1 tablet, By Mouth, 4 times a day, # 120 tablet, 0 Refills, Maintenance, 11/22/20 16:13:00 EDT, [facility], 178, cm, 11/12/20 15:32:00 EDT, Height, 84.9, kg, 08/31/20 1:07:00 EDT, Dry Weight Start Date: 11/22/20 Status: OrderedhydrOXYzine hydrochloride 25 mg oral tablet 1 TO 2 TABLETS, By Mouth, 3 times a day, PRN NEEDED FOR ANXIETY (VIAL), # 60 tablet, 3 Refills, Maintenance, 10/07/20 16:49:00 EDT, [facility], 178, cm, 08/31/20 11:25:00 EDT, Height, 84.9, kg, 08/31/20 1:07:00 EDT, Dry Weight Start Date: 10/07/20 Status: OrderedKeppra 500 mg oral tablet 1 tablet = 500 mg, By Mouth, 2 times a day, # 14 tablet, 0 Refills, Maintenance, 11/01/20 11:59:00 EDT, Tablet, [facility] 3, Partial fill upon [...] EDT, 12/01/19 16:37:00 EDT, Syrup, [facility], re sent from 10/04/17, 30... Start Date: 12/01/19 Stop Date: 11/25/20 Status: Orderedmelatonin 3 mg oral tablet 1 tablet = 3 mg, By Mouth, Daily at bedtime, PRN for insomnia, # 60 tablet, 4 Refills, Maintenance, 07/18/20 17:30:00 EST, Tablet, [facility], 175, cm, 04/02/20 0:35:00 EDT, Height, [...] Maintenance, 10/06/19 15:57:00 EDT, Tablet, [facility], 175, cm, 08/24/19 14:14:00 EDT, Height, 81.2, kg, 02/04/19 1:40:00 EDT, Dry Weight Start Date: 10/06/19 Status: Orderedsertraline 50 mg oral tablet 1 tablet, By Mouth, Daily, TAKE ALONG WITH A 100MG TABLET to equal 150mg daily, # 90 tablet, 1 Refills, Maintenance, 10/06/19 15:57:00 EDT, [facility], 175, cm, 08/24/19 14:14:00 EDT, Height, 81.2, kg, 02/04/19 1:40:00 EDT, Dry Weight Start Date: 10/06/19 Status: Orderedsildenafil 50 mg oral tablet 1 tablet = 50 mg, By Mouth, Daily, PRN erectile dysfunction, 1 hour before sexual activity, # 6 tablet, 5 Refills, Maintenance, 03/11/20 14:37:00 EDT, Tablet, [facility]/pharmacy #[id number], 175, cm, 08/24/19 14:14:00 EDT, Height, 81.2, kg, 02/04/19 1:40:00 EDT,... Start Date: 03/11/20 Status: GhzuttkKrj-C-Llur oral tablet See Instructions, TAKE 1 TABLET BY MOUTH ONCE A DAY, # 30 tablet, 10 Refills, Maintenance, [facility], 28, TAKE 1 TABLET BY MOUTH ONCE [...] 0 Refills, Maintenance, 10/22/20 17:52:00 EDT, Tablet, [facility]/pharmacy #[id number], Partial fill upon [...] Details, Route to Pharmacy Electronically, [facility], 178, cm, 10/22/20... Start Date: 11/01/20 Status: OrderedVitamin B1 100 mg oral tablet 1, tablet, By Mouth, Daily, # 90 tablet, Refills 2, Tot. Refills 0, Acute, 09/05/20 17:32:00 EDT, Route to Pharmacy Electronically, [facility], 178, cm, 08/31/20 11:25:00 EDT, Height, 84.9, kg,08/31/20 1:07:00 EDT, Dry Weight Start Date: 09/05/20 Status: OrderedXifaxan 550 mg oral tablet 1 tablet, By Mouth, 2 times a day, # 60 tablet, 0 Refills, Maintenance, 04/16/20 14:45:00 EST, [facility]/pharmacy #[id number], 175, cm, 04/02/20 [...] Active Vitamin D insufficiency(Confirmed) 08/16/12 Active 1refer [id number] HEP C,b; immune HEP A,3r/o dgauyymwwbxdpzgn0xzfnxx2cpcczbpy counseling6? imouwhf0uym RF ANCA,normal immunofixation,8lumbar puncture November 2011,neg lymenormal IGA neg SSA ,SSBnormal methylmalonic acid homocyseine9 legally blind;scnnkwcbtf26cfyfru echo November 2014 Social History Social History Type Response Smoking Status 10 or more cigarettes (1/2 p ack or more)/day in last 30 days entered on: 02/04/19 Sex
--- OUTSIDE RECORDS SUMMARY | 2022-03-14 03:15 | XMS_ITS | Continuity of Care Document ---
:1975 Author Organization [facility] Address [address] [place] [address]- Care Team Providers Name Role Phone Jany Baig DO Primary Care Physician Encounter [facility] Date(s): 10/10/21 - 11/09/21 [facility] [address] [place] [address]- Allergies, Adverse Reactions, Alerts Substance Reaction Severity Status ibuprofen1 Hx of GI Bleed Active aspirin2 Hx GI Bleed Active Tylenol3 Cirrhosis Active NSAIDs Active 1pt advised not to take NSAIDs or Tylenol due to underlying liver disease. Also had GI side effects when took too much aspirin in the past.2pt took too much in the past and had GI side [id number] advised not to take d/t underlying liver [...] acel (oldterm) 08/02/12 Given 1Result Comment: [04/29/2017] [id number] Note: [id number] Note: 3 [id number] Note: #2 Medications amLODIPine 5 mg oral tablet 5 mg, 1, tablet, By Mouth, Daily, # 30 tablet, Refills 5, Tot. Refills 5, Maintenance, 10/21/21 10:15:00 EDT, Route to Pharmacy Electronically, [facility], Partial fill upon patient request if the prescription is for a schedule II opioid drug.... Start Date: 10/21/21 Status: OrderedCo Q-10 100 mg oral capsule 1 capsule, By Mouth, 4 times a day, # 120 capsule, 6 [facility]ills[facility], [facility], cm, 02/27/21 15:17:00 EDT, Height, 81, kg, 02/27/21 14:06:00 EDT, Dry Weight Start Date: 07/08/21 Status: Orderedfluticasone 50 mcg/inh nasal spray See Instructions, USE 1 SPRAY INTO EACH NOSTRIL TWICE A DAY, # 16 Gm, 5 Refills[facility], USE 1 SPRAY INTO EACH NOSTRIL TWICE A DAY, 174, cm, 07/14/21 8:16:00 EST, Height, 81, kg, 02/27/21 14:06:00 EDT, Dry Weight Start Date: 08/04/21 Status: Orderedfolic acid 1 mg oral tablet 1 mg, 1, tablet, By Mouth, Daily, # 90 tablet, Refills 4, Tot. Refills 4, Maintenance, 10/27/21 10:40:00 EDT, Route to Pharmacy Electronically, [facility], Partial fill upon patient request if the prescription is for a schedule II opioid drug.... Start Date: 10/27/21 Stop Date: 01/20/23 Status: Orderedgabapentin 300 mg oral capsule 300 mg, 1, capsule, By Mouth, Daily at bedtime, note dose change, # 90 capsule, Refills 4, Tot. Refills 4, Maintenance, 10/27/21 10:39:00 EDT, [facility] upon patient request if the prescription... Start Date: 10/27/21 Stop Date: 01/20/23 Status: OrderedhydrOXYzine hydrochloride 25 mg oral tablet 1 TO 2 TABLETS, By Mouth, 3 times a day, PRN NEEDED FOR ANXIETY (VIAL), # 60 tablet, 0 Refills, [facility], 175, cm, 10/27/21 10:11:00 EDT, Height, 87, kg, 09/27/21 21:30:00 EDT, Dry Weight Start Date: 10/29/21 Status: Orderedlactulose 10 gm/15 ml oral syrup See Instructions, TAKE 30ML BY MOUTH THREE TIMES DAILY NEEDED TO ACHEIVE 3-4 BOWL MOVEMENTS PER DAY, # 3,000 mL, 10 Refills, [facility], 30, TAKE 30ML BY MOUTH THREE TIMES DAILY NEEDED TOACHEIVE 3-4 BOWL MOVEMENTS PER DAY, 174, cm, 02/12... Start Date: 07/02/21 Status: OrderedLasix 40 mg oral tablet 40 mg, 1, tablet, By Mouth, 2 times a day, # 60 tablet, Refills 1, Tot. Refills 1, Maintenance, 10/21/21 10:15:00 EDT, [facility], Partial fill upon patient request if the prescription is for a schedule II opi... Start Date: 10/21/21 Stop Date: 12/20/21 Status: Orderedmagnesium oxide 400 mg oral tablet 1 tablet, By Mouth, 2 times a day, # 60 tablet, 0 Refills, [facility], 175, cm, 10/27/21 10:11:00 EDT, Height, 87, kg, 09/27/21 21:30:00 EDT, Dry Weight Start Date: 10/29/21 Status: OrderedMelatonin 3 mg oral tablet 1 tablet, By Mouth, Daily at bedtime, PRN NEEDED FOR INSOMNIA (PACKAGE IN TRAY), # 60 tablet, 5 Refills, Maintenance, 06/02/21 16:17:00 EST, [facility], 28, 1 tablet By Mouth [...] 10/22/21 11:42:00 EDT, Route to Pharmacy Electronically, [facility], Partialfill upon patient request if the prescription is... Start Date: 10/22/21 Stop Date: 01/15/23 Status: ZkiiourUna-P-Txnu oral tablet 1 tablet, By Mouth, Daily, # 90 tablet, 9 Refills, [facility], 28, TAKE 1 TABLET BY MOUTH ONCE A DAY, 174, cm, 07/14/21 8:16:00 EST, Height, 81, kg, 02/27/21 14:06:00 EDT, Dry Weight Start Date: 07/22/21 Status: OrderedtraZODone 50 mg oral tablet See Instructions, TAKE 1 TO 2 TABLETS BY MOUTH AT BEDTIME (ONE DOSE IN VIAL), # 60 tablet, Refills 0, Instructions Replace Required Details, Route to Pharmacy Electronically, [facility], 175, cm, 10/27/21 10:11:00 EDT, Height, 87, kg, 09/27/21... Start Date: 10/29/21 Status: OrderedVitamin B1 100 mg oral tablet 1, tablet, By Mouth, Daily, # 90 tablet, Refills 1, Route to Pharmacy Electronically, [facility], 174, cm, 02/27/21 15:17:00 EDT, Height, 81, kg, 02/27/21 14:06:00 EDT, Dry Weight Start Date: 06/16/21 Status: OrderedXifaxan 550 mg oral tablet 1 tablet, By Mouth, 2 times a day, # 60 tablet, 1 Refills, [facility], 170, cm, 11/05/21 11:11:00 EDT, [...] Active Vitamin D insufficiency(Confirmed) 08/16/12 Active 1refer [id number] HEP C,b; immune HEP A,3r/o jqqtuvnfpztegmyl9rwlzyp6rtlglglr counseling6? pmgpgci6mhp RF ANCA,normal immunofixation,8lumbar puncture November 2011,neg lymenormal IGA neg SSA ,SSBnormal methylmalonic acid homocyseine9 legally blind;[id number] echo November 2014 Social History Social History Type Response Smoking Status 10 or more cigarettes (1/2 p ack or more)/day in last 30 days entered on: 02/04/19 Sex
--- OUTSIDE RECORDS SUMMARY | 2022-03-14 03:15 | XMS_ITS | Continuity of Care Document ---
:1975 Author Organization [facility] Address [address] [place] [address]- Care Team Providers Name Role Phone Jany Baig DO Primary Care Physician [place] [facility] [place] 07/10[place]20 - 08/09/20 [facility] [address] [place] [address]- Allergies, Adverse Reactions, Alerts Substance Reaction Severity Status ibuprofen1 Hx of GI Bleed Active aspirin2 Hx GI Bleed Active Tylenol3 Cirrhosis Active NSAIDs Active 1pt advised not to take NSAIDs or Tylenol due to underlying liver disease. Also had GI side effects when took too much aspirin in the past.2pt took too much in the past and had GI side aqarpcr8jz advised not to take d/t underlying liver [...] 08/02/12 Given 1Admin Note: #22Result Comment: [04/29/2017] [id number] Note: [id number] Admin Note: 3 RDINJ Medications baclofen 10 mg oral tablet 10 mg, 1, tablet, By Mouth, 3 times a day, pt needs to schedule appt, # 90 tablet, Refills 0, Tot. Refills 0, Maintenance, 07/18/20 17:30:00 EST, Route to Pharmacy Electronically, [facility], 175, cm, 04/02/20 0:35:00 EDT, Height, 100, kg, ... Start Date: 07/18/20 Stop Date: 08/17/20 Status: Orderedchantix 1mg tablet 1 tablet, By Mouth, 2 times a day, for 12 week(s), neeeds to schedule appt, # 56 tablet, 0 Refills, Acute 09/18/20 11:11:00 EDT, 06/26/20 11:11:00 EST, [facility], 175, cm, 04/02/20 0:35:00 EDT, Height, 100, kg, 04/02/20 0:35:00 EDT, Dry Weight Start Date: 06/26/20 Stop Date: 09/18/20 Status: Orderedchantix 1mg tablet 1 tablet, By Mouth, 2 times a day, for 12 week(s), # 56 tablet, 0 Refills, Acute, 05/21/20 12:54:00 EST, [facility], 175, cm, 04/02/20 0:35:00 EDT, Height, 100, kg, 04/02/20 0:35:00 EDT, Dry Weight Start Date: 05/21/20 Stop Date: 08/13/20 Status: OrderedCo Q-10 100 mg oral capsule 1 capsule, By Mouth, 4 times a day, # 120 capsule, 11 Refills, Maintenance, 11/21/19 10:36:00 EDT, [facility]/pharmacy #[id number], 175, cm, 08/24/19 14:14:00 EDT, Height, 81.2, kg, 02/04/19 1:40:00 EDT, Dry Weight Start Date: 11/21/19 Stop Date: 11/15/20 Status: OrderedEngerix-B 20 mcg/mL intramuscular suspension = 20 mcg, Intramuscular, Every 30 days, rpt at 1 and 6 months, # 1 mL, 2 Refills, Maintenance, 11/02/19 9:02:00 EDT, Suspension, [facility]/pharmacy #[id number], 175, cm, 08/24/19 14:14:00 EDT, Height, 81.2, kg, 02/04/19 1:40:00 EDT, Dry Weight Start Date: 11/02/19 Status: Orderedfluticasone 50 mcg/inh nasal spray See Instructions, SPRAY 1 SPRAY INTO EACH NOSTRIL TWICE A DAY, # 16 Gm, 5 Refills, 07/09/20 11:38:00EST, [facility], 30, SPRAY 1 SPRAY INTO EACH NOSTRIL TWICE A DAY, 175, cm, 04/02/20 0:35:00 EDT, Height, 100, kg, 04/02/20 0:35:00 EDT, Dry We... Start Date: 07/09/20 Status: Orderedgabapentin 600 mg oral tablet 1 tablet, By Mouth, 4 times a day, # 120 tablet, 0 Refills, Maintenance, 08/07/20 12:03:00 EST, [facility], 175, cm, 04/02/20 0:35:00 EDT, Height, 100, kg, 04/02/20 0:35:00 EDT, Dry Weight Start Date: 08/07/20 Status: OrderedhydrOXYzine hydrochloride 25 mg oral tablet 1 TO 2 TABLETS, By Mouth, 3 times a day, PRN NEEDED FOR ANXIETY (VIAL), pt needs to schedule appt, # 60 tablet, 1 Refills, Maintenance, 07/18/20 17:31:00 EST, [facility], 175, cm, 04/02/20 0:35:00 EDT, Height, 100, kg, 04/02/20 0:35:00 EDT,... Start Date: 07/18/20 Status: Orderedlactulose 10 gm/15 ml oral syrup 30 mL = 20 Gm, By Mouth, 3 times a day, PRN Other, for 30 days, PRN to acheive 3-4 BMs per day fill in prefilled syringes, # 3,000 mL, 11 Refills, Acute 11/25/20 16:37:00 EDT, 12/01/19 16:37:00 EDT, Syrup, [facility], re sent from 10/04/17, 30... [...] 4 Refills, Maintenance, 07/18/20 17:30:00 EST, Tablet, [facility], 175, cm, 04/02/20 0:35:00 EDT, [...] Refills, Maintenance, 04/16/20 14:45:00 EST, [facility]/pharmacy #[id number], 8, APPLY TOPICALLY THREE TIMES DAILY (APPLY A THIN FILM), 175, cm, 04/02/20 0:35:00 EDT, Height, 100,... Start Date: 04/16/20 Status: Orderedmupirocin 2% topical ointment See Instructions, APPLY TOPICALLY THREE TIMES DAILY (APPLY A THIN FILM), # 22 Gm, 0 Refills, Acute, [facility], 8, APPLY TOPICALLY THREE TIMES [...] 1 Refills, Maintenance, 10/06/19 15:57:00 EDT, Tablet, [facility], 175, cm, 08/24/19 14:14:00 EDT, Height, 81.2, kg, 02/04/19 1:40:00 EDT, Dry Weight Start Date: 10/06/19 Status: Orderedsertraline 50 mg oral tablet 1 tablet, By Mouth, Daily, TAKE ALONG WITH A 100MG TABLET to equal 150mg daily, # 90 tablet, 1 Refills, Maintenance, 10/06/19 15:57:00 EDT, [facility], 175, cm, 08/24/19 14:14:00 EDT, Height, 81.2, kg, 02/04/19 1:40:00 EDT, Dry Weight Start Date: 10/06/19 Status: Orderedsildenafil 50 mg oral tablet 1 tablet = 50 mg, By Mouth, Daily, PRN erectile dysfunction, 1 hour before sexual activity, # 6 tablet, 5 Refills, Maintenance, 03/11/20 14:37:00 EDT, Tablet, [facility]/pharmacy #[id number], 175, cm, 08/24/19 14:14:00 EDT, Height, 81.2, kg, 02/04/19 1:40:00 EDT,... Start Date: 03/11/20 Status: FwgapezAof-X-Mqwj oral tablet 1 tablet, By Mouth, Daily, # 90 tablet, 1 Refills, Maintenance, 05/21/20 9:35:00 EST, [facility], 1 tablet By Mouth Daily, 175, cm, 04/02/20 0:35:00 EDT, Height, 100, kg, 04/02/20 0:35:00 EDT, Dry Weight Start Date: 05/21/20 Status: QghhjvuLig-F-Utpx oral tablet See Instructions, TAKE 1 TABLET BY MOUTH ONCE A DAY, # 30 tablet, 10 Refills, Maintenance, [facility], 28, TAKE 1 TABLET BY MOUTH ONCE [...] Replace Required Details, [facility] to Pharm[facility], [facility], 175, cm, 04/02/20 0:35:00 EDT, Height, 100,... Start Date: 08/07/20 Status: OrderedVitamin B1 100 mg oral tablet 1, tablet, By Mouth, Daily, # 90 tablet, Refills 3, Tot. Refills 3, Maintenance, 09/27/19 8:51:00 EDT, Route to Pharmacy Electronically, [facility], 175, cm, 08/24/19 14:14:00 EDT, Height, 81.2, kg, 02/04/19 1:40:00 EDT, Dry Weight Start Date: 09/27/19 Status: OrderedXifaxan 550 mg oral tablet 1 tablet, By Mouth, 2 times a day, # 60 tablet, 0 Refills, Maintenance, 04/16/20 14:45:00 EST, [facility]/pharmacy #[id number], 175, cm, 04/02/20 0:35:00 EDT, Height, 100, kg, 04/02/20 0:35:00 EDT, Dry Weight Start Date: 04/16/20 Status: OrderedXifaxan 550 mg oral tablet See Instructions, TAKE 1 TABLET BY MOUTH TWICE A DAY, # 60 tablet, 0 Refills, Maintenance, [facility], [facility], cm, 04/02/20 0:35:00 EDT, Height, 100, [...] Active Vitamin D insufficiency(Confirmed) 08/16/12 Active 1refer tansp8olt HEP C,b; immune HEP A,3r/o sbnnkulbuteriiue7rydnhy0ubkbmivn counseling6? seyhqlf7gya RF ANCA,normal immunofixation,8lumbar puncture November 2011,neg lymenormal IGA neg SSA ,SSBnormal methylmalonic acid homocyseine9 legally blind;pqconwzwkv24mbhbzo echo November 2014 Social History Social History Type Response Smoking Status 10 or more cigarettes (1/2 p ack or more)/day in last 30 days entered on: 02/04/19 Sex
--- OUTSIDE RECORDS SUMMARY | 2022-03-14 03:15 | XMS_ITS | Continuity of Care Document ---
:1975 Author Organization [facility] Address [address] [place] [address]- Care Team Providers Name Role Phone Jany Baig DO Primary Care Physician [place] [facility] [place] [facility] [address] [place] [address]- [facility] Attending Physician: Venice Salmon Admitting Physician: Venice [...] in the past and had GI side zrunsll1am advised not to take d/t underlying liver [...] acel (oldterm) 08/02/12 Given 1Result Comment: [04/29/2017] [id number] Note: [id number] Note: 3 [id number] Note: #2 Medications chantix 1mg tablet 1 tablet = 1 mg, By Mouth, 2 times a day, with a full glass of water, continue for total of 12 wks, # 56 tablet, 1 Refills, Maintenance, 08/24/19 14:54:00 EDT, Tablet, [facility], 175, cm, 08/24/19 14:14:00 EDT, Height, 81.2, kg, 02/04/19 1:40... Start Date: 08/24/19 Status: OrderedCo Q-10 100 mg oral capsule 1 capsule, By Mouth, 3 times a day, # 90 capsule, 11 Refills, Maintenance, 06/16/19 12:41:00 EST, [facility], 175, cm, 02/06/19 7:59:00 EDT, Height, [...] 2 Refills, Maintenance, 09/04/19 13:01:00 EDT, Suspension, [id number], 175, cm, 08/24/19 14:14:00 EDT, Height, 81.2, kg, 02/04/19 1:40:00 EDT, Dry Weight Start Date: 09/04/19 Status: Orderedfluticasone 50 mcg/inh nasal spray See Instructions, SPRAY 1 SPRAY INTO EACH NOSTRIL TWICE A DAY, # 16 Gm, 3 Refills, Maintenance, [facility], 30, SPRAY 1 SPRAY INTO EACH [...] 09/12/19 7:57:00 EDT, Route to Pharmacy Electronically, [facility], 175, cm, 08/24/19 14:14:00 EDT, Height, 81.2, kg, 0... Start Date: 09/12/19 Stop Date: 11/11/19 Status: Orderedfolic acid 1 mg oral tablet 1, tablet, By Mouth, Daily, # 30 tablet, Refills 1, Tot. Refills 0, Maintenance, 05/29/19 17:32:04 EST, Instructions Replace Required Details, Route to Pharmacy Electronically, [facility], 175,cm, 02/06/19 7:59:26 EDT, Height, [...] Stop 10/12/19 7:00:00 EDT, 09/12/19 7:58:00 EDT, [facility], 175, cm, 08/24/19 14:14:00 EDT, Height, 81.2, kg, 02/04/19 1... Start Date: 09/12/19 Stop Date: 10/12/19 Status: Orderedlactulose 10 gm/15 ml oral syrup 30 mL = 20 Gm, By Mouth, 3 times a day, PRN Other, for 30 days, PRN to acheive 3-4 BMs per day, # 3,000 mL, 11 Refills, Acute 06/16/20 12:33:00 EST, 06/22/19 12:33:00 EST, Syrup, [facility], resent from 10/04/17, 30 mL [...] 0 Refills, Maintenance, 09/12/19 7:59:00 EDT, Ointment, [facility], 1 application Topically 3 times [...] 0 Refills, Maintenance, 06/26/19 20:32:00 EST, Tablet, [facility], 175, cm, 06/20/19 12:00:00 EST, Height, 81.2, kg, 02/04/19 1:40:00 EDT, Dry Weight Start Date: 06/26/19 Status: Orderedsertraline 50 mg oral tablet 1 tablet, By Mouth, Daily, TAKE ALONG WITH A 100MG TABLET to equal 150mg daily, # 90 tablet, 0 Refills, Maintenance, 06/22/19 12:32:00 EST, [facility], 175, cm, 06/20/19 12:00:00 EST, Height, 81.2, kg, 02/04/19 1:40:00 EDT, Dry Weight Start Date: 06/22/19 Status: ZntpqpgBtb-U-Bpzu oral tablet 1 tablet, By Mouth, Daily, # 30 tablet, 11 Refills, Maintenance, 06/16/19 12:42:00 EST, [facility], 30, TAKE 1 TABLET BY [...] Pharmacy Electronically, [facility], 175, cm, 08/24/19 14:14:0... Start Date: 09/14/19 Status: OrderedVitamin B1 100 mg oral tablet 1, tablet, By Mouth, Daily, # 90 tablet, Refills 3, Tot. Refills 0, Acute, 06/16/19 12:42:00 EST, Route to Pharmacy Electronically, [facility], 175, cm, 02/06/19 7:59:00 EDT, Height, 81.2, kg, 02/04/19 1:40:00 EDT, Dry Weight Start Date: 06/16/19 Status: OrderedXifaxan 550 mg oral tablet 1 tablet, By Mouth, 2 times a day, # 60 tablet, 1 Refills, Maintenance, 09/14/19 14:41:00 EDT, [facility], 175, cm, 08/24/19 14:14:00 EDT, [...] Active Vitamin D insufficiency(Confirmed) 08/16/12 Active 1refer gjvwu6ukn HEP C,b; immune HEP A,3r/o vyiwdevjbvmxxixg2bkpvft6arwqduwq counseling6? vcvytby0mzv RF ANCA,normal immunofixation,8lumbar puncture November 2011,neg lymenormal IGA neg SSA ,SSBnormal methylmalonic acid homocyseine9 legally blind;jmepudaarx78bzbkpy echo November 2014 Social History Social History Type Response Smoking Status 10 or more cigarettes (1/2 p ack or more)/day in last 30 days entered on: 02/04/19 Sex
--- OUTSIDE RECORDS SUMMARY | 2022-03-14 03:16 | XMS_ITS | Continuity of Care Document ---
:1975 Author Organization [facility] Address [address] [place] [id number]- Care Team Providers Name Role Phone Jany Baig DO Primary Care Physician Encounter [facility] [place] Date(s): 04/02/20 - 04/02/[address] [address]- [facility] Discharge Disposition: A-D/C Walkout Attending Physician: Not [...] in the past and had GI side [id number] advised not to take d/t underlying liver [...] 08/02/12 Given 1Admin Note: #22Result Comment: [04/29/2017] [id number] Note: [email or web address] Admin Note: 3 RDINJ Medications baclofen 10 mg oral tablet 10 mg, 1, tablet, By Mouth, 3 times a day, # 90 tablet, Refills 4, Tot. Refills 4, Maintenance, 02/16/20 17:55:00 EDT, Route to Pharmacy Electronically, [facility], 175, cm, 08/24/19 14:14:00 EDT, Height, 81.2, kg, 02/04/19 1:40:00 EDT, Dry We... Start Date: 02/16/20 Stop Date: 07/15/20 Status: Orderedchantix 1mg tablet See Instructions, TAKE 1 TABLET BY MOUTH TWICE A DAY WITH A FULL GLASS OF WATER AND CONTINUE FOR A TOTAL OF 12 WEEKS, # 56 tablet, 0 Refills, Maintenance, 02/16/20 17:54:00 EDT, [facility], 175, cm, 08/24/19 14:14:00 [...] 16 Gm, 5 Refills, 01/26/20 9:52:00 EDT, [facility], 30, SPRAY 1 SPRAY INTO EACH NOSTRIL TWICE A DAY, 175, cm, 08/24/19 14:14:00 EDT, Height, 81.2, kg, 02/04/19 1:40:00 EDT, Dry W... Start Date: 01/26/20 Status: Orderedgabapentin 600 mg oral tablet 1 tablet = 600 mg, By Mouth, 4 times a day, to replace prior script, # 120 tablet, 3 Refills, Maintenance, 01/26/20 14:28:00 EDT, Tablet, [facility], 175, cm, 08/24/19 14:14:00 EDT, [...] 11/25/20 16:37:00 EDT, 12/01/19 16:37:00 EDT, Syrup, [facility], re sent from 10/04/17, 30... [...] 4 Refills, Maintenance, 10/06/19 16:16:00 EDT, Tablet, [facility], 175, cm, 08/24/19 14:14:00 EDT, Height, 81.2, kg, 02/04/19 1:40:00 EDT, Dry Weight Start Date: 10/06/19 Status: Orderedmupirocin 2% topical ointment See Instructions, APPLY TOPICALLY THREE TIMES DAILY (APPLY A THIN FILM), # 22 Gm, 0 Refills, Maintenance, 03/21/20 9:50:00 EDT, [facility], 8, APPLY TOPICALLY THREE TIMES DAILY (APPLY A THIN FILM), 175, cm, 08/24/19 14:14:00 EDT, Height, 81.2,... Start Date: 03/21/20 Status: Orderedmupirocin 2% topical ointment See Instructions, APPLY TOPICALLY THREE TIMES DAILY (APPLY A THIN FILM), # 22 Gm, 0 Refills, Maintenance, 01/26/20 14:28:00 EDT, [facility], 8, APPLY TOPICALLY THREE TIMES [...] 1 Refills, Maintenance, 10/06/19 15:57:00 EDT, Tablet, [facility], 175, cm, 08/24/19 14:14:00 EDT, Height, 81.2, kg, 02/04/19 1:40:00 EDT, Dry Weight Start Date: 10/06/19 Status: Orderedsertraline 50 mg oral tablet 1 tablet, By Mouth, Daily, TAKE ALONG WITH A 100MG TABLET to equal 150mg daily, # 90 tablet, 1 Refills, Maintenance, 10/06/19 15:57:00 EDT, [facility], 175, cm, 08/24/19 14:14:00 EDT, [...] 02/04/19 1:40:00 EDT,... Start Date: 03/11/20 Status: XtvwapmKmh-G-Glen oral tablet 1 tablet, By Mouth, Daily, # 30 tablet, 11 Refills, Maintenance, 06/16/19 12:42:00 EST, [facility], 30, TAKE 1 TABLET BY [...] 09/27/19 8:51:00 EDT, Route to Pharmacy Electronically, [facility], 175, cm, 08/24/19 14:14:00 EDT, Height, 81.2, kg, 02/04/19 1:40:00 EDT, Dry Weight Start Date: 09/27/19 Status: OrderedXifaxan 550 mg oral tablet See Instructions, TAKE 1 TABLET BY MOUTH TWICE A DAY, # 60 tablet, 0 Refills, 02/16/20 17:54:00 EDT,[facility], 175, cm, 08/24/19 14:14:00 EDT, Height, 81.2, kg, 02/04/19 1:40:00 EDT, Dry Weight Start Date: 02/16/20 Status: OrderedXifaxan 550 mg oral tablet 1 tablet, By Mouth, 2 times a day, # 60 tablet, 0 Refills, Maintenance, 03/21/20 9:51:00 EDT, [facility], 175, cm, 08/24/19 14:14:00 [...] Active Vitamin D insufficiency(Confirmed) 08/16/12 Active 1refer [id number] HEP C,b; immune HEP A,3r/o ljcrcoqbdqrqqjue7gktkei9fbbdopjy counseling6? [id number] RF ANCA,normal immunofixation,8lumbar puncture November 2011,neg lymenormal IGA neg SSA ,SSBnormal methylmalonic acid homocyseine9 legally blind;fmlvubnqzx76wmbmhl echo November 2014 Results Radiology Reports Exam Date Time Procedure Performing Provider Status 04/02/20 12:59 AM Foot Min 3 Views Left Samantha Serrato; Tanna (Verified) Notes:(Foot Min 3 Views Left) Reason For Exam: with Pain;TraumaRESULT: Foot Min 3 Views Left Tibia/Fibula 2 Views Left, Foot Min 3 Views Left INDICATION: pain and bruising after tripping over a shopping cart, able to bear minimal weight afterfalling. COMPARISON: Left ankle 11/14/2016. FINDINGS: No fractures or bone lesions in the tibia/fibula or the foot. First MTP fusion. Hardware appears intact. Stable sclerotic focus in the proximal fifth metatarsal likely represents a bone island. Posterior calcaneal spurring. Visualized joints are normal. Normal soft tissues. IMPRESSION: No evidence of acute abnormality in the tibia/fibula or the foot. I have personally reviewed the images and I agree with this report. WSN: [id number] Ordering Physician: Waylon Wharton Dictated By: Tiffanie Collins MD Dictated Date/Time: 04/02/20 8:34 am Reviewed By: Gerard Espinal MD Signed By: Gerard Espinal MD Signed Date/Time: 04/02/20 8:39 am Transcribed By: MIRNA Transcribed Date/Time: 04/02/20 8:22 am Exam Date Time Procedure Performing Provider Status 04/02/20 12:59 AM Tibia/Fibula 2 Views Left Samantha Serrato; Auth (Verified) Notes:(Tibia/Fibula 2 Views Left) Reason For Exam: with Pain;TraumaRESULT: Tibia/Fibula 2 Views Left Tibia/Fibula 2 Views Left, Foot Min 3 Views Left INDICATION: pain and bruising after tripping over a shopping cart, able to bear minimal weight afterfalling. COMPARISON: Left ankle 11/14/2016. FINDINGS: No fractures or bone lesions in the tibia/fibula or the foot. First MTP fusion. Hardware appears intact. Stable sclerotic focus in the proximal fifth metatarsal likely represents a bone island. Posterior calcaneal spurring. Visualized joints are normal. Normal soft tissues. IMPRESSION: No evidence of acute abnormality in the tibia/fibula or the foot. I have personally reviewed the images and I agree with this report. WSN: [id number] Ordering Physician: Waylon Wharton Dictated By: Tiffanie Collins MD Dictated Date/Time: 04/02/20 8:34 am Reviewed By: Gerard Espinal MD Signed By: Gerard Espinal MD Signed Date/Time: 04/02/20 8:39 am Transcribed By: MIRNA Transcribed Date/Time: 04/02/20 8:22 am Vital Signs Most recent to oldest [Reference Range]: 1 2 Height 175 cm 175 cm (04/02/20 12:35 AM) (04/02/20 12:25 AM) Oxygen Saturation [94-100 %] 100 % (04/02/20 12:35 AM) Pulse Rate [55-90 bpm] 106 bpm *H* (04/02/20 12:35 AM) Blood Pressure [90-138/55-84 mm Hg] 148/88 mm Hg *H* (04/02/20 12:35 AM) Respiratory Rate [16-30 br/min] 18 br/min (04/02/20 12:35 AM) Temperature [96.8-100.4 DegF] 99.0 DegF (04/02/20 12:35 AM) Mode of Delivery (Oxygen) Room air (04/02/20 12:35 AM) Blood pressure sites Arm, left (04/02/20 12:35 AM) Temperature Route Oral (04/02/20 12:35 AM) Dry Weight 100 kg 100 kg (04/02/20 12:35 AM) (04/02/20 12:25 AM) Dry Weight Obtained Via Patient/family stated (04/02/20 12:25 AM) Social History Social History Type Response Smoking Status 10 or more cigarettes (1/2 p ack or more)/day in last 30 days entered on: 02/04/19 Sex
--- OUTSIDE RECORDS SUMMARY | 2022-03-14 03:16 | XMS_ITS | Continuity of Care Document ---
:1975 Author Organization [facility] Address [address] [place] [address]- Care Team Providers Name Role Phone Jany Baig DO Primary Care Physician Encounter [facility] [place] Date(s): 01/26/20 - 02/25/20 [facility] [address] [place] [address]- [facility] Allergies, Adverse Reactions, Alerts Substance Reaction Severity Status ibuprofen1 Hx of GI Bleed Active aspirin2 Hx GI Bleed Active Tylenol3 Cirrhosis Active NSAIDs Active 1pt advised not to take NSAIDs or Tylenol due to underlying liver disease. Also had GI side effects when took too much aspirin in the past.2pt took too much in the past and had GI side [id number] advised not to take d/t underlying liver [...] 08/02/12 Given 1Admin Note: #22Result Comment: [04/29/2017] [id number] Note: [email or web address] Admin Note: 3 RDINJ Medications baclofen 10 mg oral tablet 10 mg, 1, tablet, By Mouth, 3 times a day, # 90 tablet, Refills 4, Tot. Refills 4, Maintenance, 02/16/20 17:55:00 EDT, Route to Pharmacy Electronically, [facility], 175, cm, 08/24/19 14:14:00 EDT, Height, 81.2, kg, 02/04/19 1:40:00 EDT, Dry We... Start Date: 02/16/20 Stop Date: 07/15/20 Status: Orderedchantix 1mg tablet 1 tablet = 1 mg, By Mouth, 2 times a day, with a full glass of water, continue for total of 12 wks, # 56 tablet, 1 Refills, Maintenance, 10/06/19 15:54:00 EDT, Tablet, [facility], 175, cm, 08/24/19 14:14:00 EDT, Height, 81.2, kg, 02/04/19 1:40... Start Date: 10/06/19 Status: Orderedchantix 1mg tablet See Instructions, TAKE 1 TABLET BY MOUTH TWICE A DAY WITH A FULL GLASS OF WATER AND CONTINUE FOR A TOTAL OF 12 WEEKS, # 56 tablet, 0 Refills, Maintenance, 02/16/20 17:54:00 EDT, [facility], 175, cm, 08/24/19 14:14:00 EDT, Height, 81.2, kg, 08/... Start Date: 02/16/20 Status: OrderedCo Q-10 100 mg oral capsule 1 capsule, By Mouth, 4 times a day, # 120 capsule, 11 Refills, Maintenance, 11/21/19 10:36:00 EDT, [facility]/pharmacy #[id number], 175, cm, 08/24/19 14:14:00 EDT, Height, 81.2, kg, 02/04/19 1:40:00 EDT, Dry Weight Start Date: 11/21/19 Stop Date: 11/15/20 Status: OrderedEngerix-B 20 mcg/mL intramuscular suspension = 20 mcg, Intramuscular, Every 30 days, rpt at 1 and 6 months, # 1 mL, 2 Refills, Maintenance, 11/02/19 9:02:00 EDT, Suspension, [facility]/pharmacy #[id number], 175, cm, 08/24/19 14:14:00 EDT, Height, 81.2, kg, 02/04/19 1:40:00 EDT, Dry Weight Start Date: 11/02/19 Status: Orderedfluticasone 50 mcg/inh nasal spray See Instructions, SPRAY 1 SPRAY INTO EACH NOSTRIL TWICE A DAY, # 16 Gm, 5 Refills, 01/26/20 9:52:00 EDT, [facility], 30, SPRAY 1 SPRAY INTO EACH NOSTRIL TWICE A DAY, 175, cm, 08/24/19 14:14:00 EDT, Height, 81.2, kg, 02/04/19 1:40:00 EDT, Dry W... Start Date: 01/26/20 Status: Orderedgabapentin 600 mg oral tablet 1 tablet = 600 mg, By Mouth, 4 times a day, to replace prior script, # 120 tablet, 3 Refills, Maintenance, 01/26/20 14:28:00 EDT, Tablet, [facility], 175, cm, 08/24/19 14:14:00 EDT, Height, 81.2, kg, 02/04/19 1:40:00 EDT, Dry Weight Start Date: 01/26/20 Stop Date: 05/25/20 Status: OrderedhydrOXYzine hydrochloride 25 mg oral tablet 1 TO 2 TABLETS, By Mouth, 3 times a day, PRN NEEDED FOR ANXIETY, # 60 tablet, 2 Refills, Maintenance, 02/16/20 17:56:00 EDT, [facility], 175, cm, 08/24/19 14:14:00 [...] 11/25/20 16:37:00 EDT, 12/01/19 16:37:00 EDT, Syrup, [facility], re sent from 10/04/17, [...] 4 Refills, Maintenance, 10/06/19 16:16:00 EDT, Tablet, [facility], 175, cm, 08/24/19 14:14:00 EDT, Height, 81.2, kg, 02/04/19 1:40:00 EDT, Dry Weight Start Date: 10/06/19 Status: Orderedmupirocin 2% topical ointment See Instructions, APPLY TOPICALLY THREE TIMES DAILY (APPLY A THIN FILM), # 22 Gm, 0 Refills, Acute, [facility], 8, APPLY TOPICALLY THREE TIMES DAILY (APPLY A THIN FILM), 175, cm, 08/24/19 14:14:00 EDT, Height, 81.2, kg, 02/04/19 1:40:00 EDT, D... Start Date: 10/30/19 Status: Orderedmupirocin 2% topical ointment See Instructions, APPLY TOPICALLY THREE TIMES DAILY (APPLY A THIN FILM), # 22 Gm, 0 Refills, Maintenance, 02/16/20 17:55:00 EDT, [facility], 8, APPLY TOPICALLY THREE TIMES DAILY (APPLY A THIN FILM), 175, cm, 08/24/19 14:14:00 EDT, Height, 81.2... Start Date: 02/16/20 Status: Orderedmupirocin 2% topical ointment See Instructions, APPLY TOPICALLY THREE TIMES DAILY (APPLY A THIN FILM), # 22 Gm, 0 Refills, Maintenance, 01/26/20 14:28:00 EDT, [facility], 8, APPLY TOPICALLY THREE TIMES [...] EDT, Dry Weight Start Date: 10/06/19 Status: RnxsoxlFop-B-Unax oral tablet 1 tablet, By Mouth, Daily, # 30 tablet, 11 Refills, Maintenance, 06/16/19 12:42:00 EST, [facility], 30, TAKE 1 TABLET [...] to Pharmacy Electronically, [facility], 175, cm, 08/24/19 14:14:0... Start Date: 02/16/20 Status: OrderedVitamin B1 100 mg oral tablet 1, tablet, By Mouth, Daily, # 90 tablet, Refills 3, Tot. Refills 3, Maintenance, 09/27/19 8:51:00 EDT, Route to Pharmacy Electronically, [facility], 175, cm, 08/24/19 14:14:00 EDT, Height, 81.2, kg, 02/04/19 1:40:00 EDT, Dry Weight Start Date: 09/27/19 Status: OrderedXifaxan 550 mg oral tablet 1 tablet, By Mouth, 2 times a day, # 60 tablet, 0 Refills, Maintenance, 10/30/19 16:57:00 EDT, [facility], 175, cm, 08/24/19 14:14:00 EDT, Height, 81.2, kg, 02/04/19 1:40:00 EDT, Dry Weight Start Date: 10/30/19 Status: OrderedXifaxan 550 mg oral tablet See Instructions, TAKE 1 TABLET BY MOUTH TWICE A DAY, # 60 tablet, 0 Refills, 02/16/20 17:54:00 [facility], [facility], cm, 08/24/19 14:14:00 EDT, [...] Active Vitamin D insufficiency(Confirmed) 08/16/12 Active 1refer [id number] HEP C,b; immune HEP A,3r/o dbhkvtvjevzcwgzb8iqnoax4jqqevkzp counseling6? [id number] RF ANCA,normal immunofixation,8lumbar puncture November 2011,neg lymenormal IGA neg SSA ,SSBnormal methylmalonic acid homocyseine9 legally blind;[id number] echo November 2014 Social History Social History Type Response Smoking Status 10 or more cigarettes (1/2 p ack or more)/day in last 30 days entered on: 02/04/19 Sex
--- OUTSIDE RECORDS SUMMARY | 2022-03-14 03:16 | XMS_ITS | Continuity of Care Document ---
:1975 Author Organization [facility] Address [address] [place] [address]- Care Team Providers Name Role Phone Jany Baig DO Primary Care Physician Encounter [facility] Date(s): 05/21/20 - 06/20/20 [facility] [address] [place] [address]- Allergies, Adverse Reactions, Alerts Substance Reaction Severity Status ibuprofen1 Hx of GI Bleed Active aspirin2 Hx GI Bleed Active Tylenol3 Cirrhosis Active NSAIDs Active 1pt advised not to take NSAIDs or Tylenol due to underlying liver disease. Also had GI side effects when took too much aspirin in the past.2pt took too much in the past and had GI side [id number] advised not to take d/t underlying liver [...] 08/02/12 Given 1Admin Note: #22Result Comment: [04/29/2017] [id number] Note: [email or web address] Admin Note: 3 RDINJ Medications baclofen 10 mg oral tablet 10 mg, 1, tablet, By Mouth, 3 times a day, # 90 tablet, Refills 4, Tot. Refills 4, Maintenance, 02/16/20 17:55:00 EDT, Route to Pharmacy Electronically, [facility], 175, cm, 08/24/19 14:14:00 EDT, Height, 81.2, kg, 02/04/19 1:40:00 EDT, Dry We... Start Date: 02/16/20 Stop Date: 07/15/20 Status: Orderedchantix 1mg tablet 1 tablet, By Mouth, 2 times a day, for 12 week(s), # 56 tablet, 0 Refills, Acute, 05/21/20 12:54:00 EST, [facility], 175, cm, 04/02/20 0:35:00 EDT, Height, [...] 16 Gm, 5 Refills, 01/26/20 9:52:00 EDT, [facility], 30, SPRAY 1 SPRAY INTO EACH NOSTRIL TWICE A DAY, 175, cm, 08/24/19 14:14:00 EDT, Height, 81.2, kg, 02/04/19 1:40:00 EDT, Dry W... Start Date: 01/26/20 Status: Orderedgabapentin 600 mg oral tablet 1 tablet, By Mouth, 4 times a day, # 120 tablet, 2 Refills, Maintenance, 05/21/20 12:54:00 EST, [facility], 175, cm, 04/02/20 0:35:00 EDT, Height, 100, kg, 04/02/20 0:35:00 EDT, Dry Weight Start Date: 05/21/20 Status: OrderedhydrOXYzine hydrochloride 25 mg oral tablet 1 TO 2 TABLETS, By Mouth, 3 times a day, PRN NEEDED FOR ANXIETY (VIAL), # 60 tablet, 1 Refills, Acute, 05/21/20 12:54:00 EST, [facility], 175, cm, 04/02/20 0:35:00 EDT, [...] 11/25/20 16:37:00 EDT, 12/01/19 16:37:00 EDT, Syrup, [facility], re sent from 10/04/17, 30... [...] 4 Refills, Maintenance, 10/06/19 16:16:00 EDT, Tablet, [facility], 175, cm, 08/24/19 14:14:00 EDT, [...] Gm, 0 Refills, Maintenance, 04/16/20 14:45:00 EST, [facility]/pharmacy #[id number], 8, APPLY TOPICALLY THREE TIMES [...] 1 Refills, Maintenance, 10/06/19 15:57:00 EDT, Tablet, [facility], 175, cm, 08/24/19 14:14:00 EDT, Height, 81.2, kg, 02/04/19 1:40:00 EDT, Dry Weight Start Date: 10/06/19 Status: Orderedsertraline 50 mg oral tablet 1 tablet, By Mouth, Daily, TAKE ALONG WITH A 100MG TABLET to equal 150mg daily, # 90 tablet, 1 Refills, Maintenance, 10/06/19 15:57:00 EDT, [facility], 175, cm, 08/24/19 14:14:00 EDT, [...] 02/04/19 1:40:00 EDT,... Start Date: 03/11/20 Status: DhcifixYwn-L-Xswh oral tablet 1 tablet, By Mouth, Daily, # 90 tablet, 1 Refills, Maintenance, 05/21/20 9:35:00 EST, [facility], 1 tablet By Mouth Daily, [...] 09/27/19 8:51:00 EDT, Route to Pharmacy Electronically, [facility], 175, cm, 08/24/19 14:14:00 EDT, Height, [...] Active Vitamin D insufficiency(Confirmed) 08/16/12 Active 1refer [id number] HEP C,b; immune HEP A,3r/o exlwozkmeeyupjmb0coxwwo7tytccjfb counseling6? [id number] RF ANCA,normal immunofixation,8lumbar puncture November 2011,neg lymenormal IGA neg SSA ,SSBnormal methylmalonic acid homocyseine9 legally blind;[id number] echo November 2014 Social History Social History Type Response Smoking Status 10 or more cigarettes (1/2 p ack or more)/day in last 30 days entered on: 02/04/19 Sex
--- OUTSIDE RECORDS SUMMARY | 2022-03-14 03:16 | XMS_ITS | Continuity of Care Document ---
:[address] [facility] Address [address] [place] [address]- Care Team Providers Name Role Phone Jany Baig DO Primary Care Physician [place] [facility] [place] - 02/28/22 [facility] [address] [place] [address]- Allergies, Adverse Reactions, Alerts Substance Reaction Severity Status ibuprofen1 Hx of GI Bleed Active aspirin2 Hx GI Bleed Active Tylenol3 Cirrhosis Active NSAIDs Active 1pt advised not to take NSAIDs or Tylenol due to underlying liver disease. Also had GI side effects when took too much aspirin in the past.2pt took too much in the past and had GI side [id number] advised not to take d/t underlying liver [...] acel (oldterm) 08/02/12 Given 1Result Comment: [04/29/2017] [id number] Note: [id number] Note: 3 [id number] Note: #2 Medications acetaminophen 500 mg oral tablet 1 tablet, By Mouth, 4 times a day, PRN NEEDED FOR PAIN, MAX 4, PER DAY (VIAL., # 50 tablet, 0 Refills, Maintenance, 02/18/22 12:43:00 [facility], [facility], cm, 01/06/22 10:34:00 EDT, Height,78.3, kg, 12/26/21 19:05:00 EDT, Dry Weight Start Date: 02/18/22 Status: OrderedamLODIPine 5 mg oral tablet 5 mg, 1, tablet, By Mouth, Daily, # 30 tablet, Refills 5, Tot. Refills 5, Maintenance, 10/21/21 10:15:00 EDT, Route to Pharmacy Electronically, [facility], Partial fill upon patient request if the prescription is for a schedule II opioid drug.... Start Date: 10/21/21 Status: OrderedCo Q-10 100 mg oral capsule 1 capsule, By Mouth, 4 times a day, # 120 capsule, 5 Refills, Maintenance, 02/18/22 12:44:00 EDT, [facility], [facility], cm, 01/06/22 10:34:00 EDT, Height, [...] Gm, 5 Refills, Maintenance, 02/18/22 10:02:00 EDT, [facility], 30, USE 1 SPRAY(S) INTO EACH NOSTRIL TWICE A DAY, 175, cm, 01/06/22 10:34:00 EDT, Height, 78.3, kg, 12/26/21 19... Start Date: 02/18/22 Status: Orderedfolic acid 1 mg oral tablet 1 mg, 1, tablet, By Mouth, Daily, # 90 tablet, Refills 4, Tot. Refills 4, Maintenance, 10/27/21 10:40:00 EDT, Route to Pharmacy Electronically, [facility], Partial fill upon patient request if the prescription is for a schedule II opioid drug.... Start Date: 10/27/21 Stop Date: 01/20/23 Status: Orderedfurosemide 20 mg oral tablet See Instructions, TAKE 1 TABLET BY MOUTH ONCE A DAY, # 30 tablet, Refills 0, Maintenance, 02/18/22 12:43:00 EDT, Instructions Replace Required Details, Route to Pharmacy Electronically, [facility], 175, cm, 01/06/22 10:34:00 EDT, Height, 78.3,... Start Date: 02/18/22 Status: Orderedfurosemide 20 mg oral tablet 1, tablet, By Mouth, Daily, # 30 tablet, Refills 0, Maintenance, 02/18/22 12:44:00 EDT, Route to Pharmacy Electronically, [facility], 175, cm, 01/06/22 10:34:00 EDT, Height, 78.3, kg, 12/26/21 19:05:00 EDT, Dry Weight Start Date: 02/18/22 Status: OrderedhydrOXYzine hydrochloride 25 mg oral tablet 1 TO 2 TABLETS, By Mouth, 3 times a day, PRN NEEDED FOR ANXIETY (VIAL), # 60 tablet, 0 Refills, Maintenance, 02/18/22 12:45:00 EDT, [facility], 175, cm, 01/06/22 10:34:00 EDT, Height, 78.3, kg, 12/26/21 19:05:00 EDT, Dry Weight Start Date: 02/18/22 Status: Orderedlactulose 10 gm/15 ml oral syrup See Instructions, TAKE 30ML BY MOUTH THREE TIMES DAILY NEEDED TO ACHEIVE 3-4 BOWL MOVEMENTS PER DAY, # 3,000 mL, 10 Refills, [facility], 30, TAKE 30ML BY MOUTH THREE TIMES DAILY NEEDED TOACHEIVE 3-4 BOWL MOVEMENTS PER DAY, 174, cm, 02/12... Start Date: 07/02/21 Status: Orderedlidocaine 0.5% topical gel 1 application, Topically, 3 times a day, # 120 Gm, 0 Refills, Acute 12/30/22 17:23:00 EDT, 12/30/21 17:23:00 EDT, Gel, [facility], Partial fill upon patient request if the prescription is for aschedule II opioid drug., 1 application Topically... Start Date: 12/30/21 Stop Date: 12/30/22 Status: OrderedLidoderm 5% film 1 patch, Topically, Daily, remove patches after 12 hours NSAIDS contraindicated High dose tylenol contraindicated, # 30 patch, 5 Refills, Maintenance, 12/26/21 9:33:00 EDT, [facility], Partial fill upon patient request if the prescription i... Start Date: 12/26/21 Status: Orderedmagnesium oxide 400 mg oral tablet 1 tablet, By Mouth, 2 times a day, # 60 tablet, 0 Refills, Maintenance, 02/18/22 12:43:00 EDT, [facility], 175, cm, 01/06/22 10:34:00 EDT, Height, 78.3, kg, 12/26/21 19:05:00 EDT, Dry Weight Start Date: 02/18/22 Status: OrderedMelatonin 3 mg oral tablet 1 tablet, By Mouth, Daily at bedtime, PRN NEEDED FOR INSOMNIA (PACKAGE IN TRAY), # 60 tablet, 5 Refills, Maintenance, 06/02/21 16:17:00 EST, [facility], 28, 1 tablet By Mouth [...] 10/21/21 Stop Date: 04/19/22 Status: OrderedPotassium Chloride (Lag-Djqs-Ode M20) 20 mEq oral tablet, extended release See Instructions, TAKE 2 TABLETS BY MOUTH DAILY, # 60 tablet, 0 Refills, Maintenance, 02/18/22 12:43:00 EDT, [facility], 175, cm, 01/06/22 10:34:00 EDT, Height, 78.3, kg, 12/26/21 19:05:00 EDT,Dry Weight Start Date: 02/18/22 Status: Orderedpyridoxine 50 mg oral tablet 50 mg, 1, tablet, By Mouth, Daily, for 90 days, # 90 tablet, Refills 4, Tot. Refills 4, Acute 01/15/23 11:42:00 EDT, 10/22/21 11:42:00 EDT, Route to Pharmacy Electronically, [facility], Partialfill upon patient request if the prescription is... Start Date: 10/22/21 Stop Date: 01/15/23 Status: OrderedR aircast ankle-stirrup support brace R aircast ankle-stirrup support brace, See Instructions, # 1 each, Refills 0, Tot. Refills 0, Maintenance, Dx: R inversion ankle sprain s93.409a, 01/06/22 12:31:00 EDT, Supply Start Date: 01/06/22 Status: AzusrtqRic-Q-Lxik oral tablet 1 tablet, By Mouth, Daily, # 90 tablet, 9 Refills, [facility], 28, TAKE 1 TABLET BY MOUTH ONCE A DAY, 174, cm, 07/14/21 8:16:00 EST, Height, 81, kg, 02/27/21 14:06:00 EDT, Dry Weight Start Date: 07/22/21 Status: OrderedtraZODone 50 mg oral tablet See Instructions, TAKE 1 TO 2 TABLETS BY MOUTH AT BEDTIME (ONE DOSE IN VIAL), # 60 tablet, Refills 0, Instructions Replace Required Details, Route to Pharmacy Electronically, [facility], 175, cm, 01/06/22 10:34:00 EDT, Height, 78.3, kg, ... Start Date: 01/30/22 Status: OrderedtraZODone 50 mg oral tablet See Instructions, TAKE 2-3 TABLETS BY MOUTH AT BEDTIME (ONE DOSE IN VIAL), # 90 tablet, Refills 5, Tot. Refills 5, Maintenance, 12/26/21 9:21:00 EDT, Instructions Replace Required Details, Route to Pharmacy Electronically, [facility], 170, cm,... Start Date: 12/26/21 Status: OrderedVitamin B1 100 mg oral tablet 1, tablet, By Mouth, Daily, # 90 tablet, Refills 0, Route to Pharmacy Electronically, [facility], 170, cm, 11/12/21 10:02:00 EDT, Height, 78, kg, 11/04/21 12:03:00 EDT, Dry Weight Start Date: 12/24/21 Status: OrderedXifaxan 550 mg oral tablet 1 tablet, By Mouth, 2 times a day, # 60 tablet, 2 Refills, [facility], 175, cm, 01/06/22 10:34:00 EDT, Height, [...] Active Vitamin D insufficiency(Confirmed) 08/16/12 Active 1refer [id number] HEP C,b; immune HEP A,3r/o zuvxoxnhkbvtygnf0jbmybs7tovqpkij counseling6? [id number] RF ANCA,normal immunofixation,8lumbar puncture November 2011,neg lymenormal IGA neg SSA ,SSBnormal methylmalonic acid homocyseine9 legally blind;[id number] echo November 2014 Social History Social History Type Response Smoking Status 10 or more cigarettes (1/2 p ack or more)/day in last 30 days entered on: 02/04/19 Sex Care Team PersonnelName: Jany Baig DO Address: [address] [place] [address] Adult & Pediatric Medicine [place], [place] [address]
--- OUTSIDE RECORDS SUMMARY | 2022-03-14 03:16 | XMS_ITS | Continuity of Care Document ---
:1975 Author Organization [facility] Address [address] [place] [address]- Care Team Providers Name Role Phone Jany Baig DO Primary Care Physician Encounter [facility] Date(s): 02/02/22 - 03/04/22 [facility] [address] [place] [address]- Allergies, Adverse Reactions, Alerts Substance Reaction Severity Status ibuprofen1 Hx of GI Bleed Active aspirin2 Hx GI Bleed Active Tylenol3 Cirrhosis Active NSAIDs Active 1pt advised not to take NSAIDs or Tylenol due to underlying liver disease. Also had GI side effects when took too much aspirin in the past.2pt took too much in the past and had GI side [id number] advised not to take d/t underlying liver [...] acel (oldterm) 08/02/12 Given 1Result Comment: [04/29/2017] [id number] Note: [id number] Note: 3 [id number] Note: #2 Medications acetaminophen 500 mg oral [...] 10/21/21 10:15:00 EDT, [facility], Partial fill upon patient request if the prescription is for a schedule II opioid drug.... Start Date: 10/21/21 Status: OrderedCo Q-10 100 mg oral capsule 1 capsule, By Mouth, 4 times a day, # 120 capsule, 5 Refills, Maintenance, 02/18/22 12:44:00 EDT, [facility], 175, cm, 01/06/22 10:34:00 EDT, Height, [...] 10/27/21 10:40:00 EDT, [facility], Partial fill upon patient request if the prescription is for a schedule II opioid drug.... Start Date: 10/27/21 Stop Date: 01/20/23 Status: Orderedfurosemide 20 mg oral tablet 1, tablet, By Mouth, 2 times a day, # 60 tablet, Refills 0, Maintenance, 03/02/22 10:28:00 EDT, Route to Pharmacy Electronically, [id number], 175, cm, 01/06/22 10:34:00 EDT, Height, 78.3, kg, 12/26/21 19:05:00 EDT, Dry Weight Start Date: 03/02/22 Stop Date: 04/01/22 Status: Orderedgabapentin 300 mg oral capsule 600 mg, 2, capsule, By Mouth, Daily at bedtime, note dose change, # 180 capsule, Refills 4, Tot. Refills 4, Maintenance, 03/04/22 10:17:00 EDT, Route to Pharmacy Electronically, [id number], Partial fill upon patient request if the prescription... Start Date: 03/04/22 Stop Date: 05/28/23 Status: OrderedhydrOXYzine hydrochloride 25 mg oral tablet [...] 12/30/22 17:23:00 EDT, 12/30/21 17:23:00 EDT, Gel, [facility], Partial fill upon patient request if the prescription is for aschedule II opioid drug., 1 application Topically... Start Date: 12/30/21 Stop Date: 12/30/22 Status: OrderedLidoderm 5% film 1 patch, Topically, Daily, remove patches after 12 hours NSAIDS contraindicated High dose tylenol contraindicated, # 30 patch, 5 Refills, Maintenance, 12/26/21 9:33:00 EDT, [facility], Partial fill upon patient request if [...] tablet, 5 Refills, Maintenance, 06/02/21 16:17:00 EST, [facility], 28, 1 tablet By Mouth [...] 10/21/21 Stop Date: 04/19/22 Status: OrderedPotassium Chloride (Srt-Vaem-Okm M20) 20 mEq oral tablet, extended release [...] 12:31:00 EDT, Supply Start Date: 01/06/22 Status: JssjzrjUpx-B-Eitz oral tablet 1 tablet, By Mouth, Daily, [...] Active Vitamin D insufficiency(Confirmed) 08/16/12 Active 1refer iyeaz8kpc HEP C,b; immune HEP A,3r/o eptlwbfopqpljuzm4sgzpee0cxorpgko counseling6? mpurxqj7cms RF ANCA,normal immunofixation,8lumbar puncture November 2011,neg lymenormal IGA neg SSA ,SSBnormal methylmalonic acid homocyseine9 legally blind;[id number] echo November 2014 Social History Social History Type Response Smoking Status 10 or more cigarettes (1/2 p ack or more)/day in last 30 days entered on: 02/04/19 Sex Care Team PersonnelName: Jany Baig DO Address: [address] [place] [address] Adult & Pediatric Medicine [place], [place] [address]
--- OUTSIDE RECORDS SUMMARY | 2022-03-14 03:16 | XMS_ITS | Continuity of Care Document ---
:1975 Author Organization [facility] Address [address] [place] [address]- Care Team Providers Name Role Phone Jany Baig DO Primary Care Physician Encounter [facility] [place](s): 09/29/21 - 11/01/21 [facility] [address] [place] [address]- Attending Physician: Anna FINANCIAL AID DIRECTOR, Christine Allergies, Adverse Reactions, Alerts Substance Reaction Severity Status ibuprofen1 Hx of GI Bleed Active aspirin2 Hx GI Bleed Active Tylenol3 Cirrhosis Active NSAIDs Active 1pt advised not to take NSAIDs or Tylenol due to underlying liver disease. Also had GI side effects when took too much aspirin in the past.2pt took too much in the past and had GI side [id number] advised not to take d/t underlying liver [...] acel (oldterm) 08/02/12 Given 1Result Comment: [04/29/2017] [id number] Note: [id number] Note: 3 [id number] Note: #2 Medications amLODIPine 5 mg oral tablet 5 mg, 1, tablet, By Mouth, Daily, # 30 tablet, Refills 5, Tot. Refills 5, Maintenance, 10/21/21 10:15:00 EDT, Route to Pharmacy Electronically, [facility], Partial fill upon patient request if the prescription is for a schedule II opioid drug.... Start Date: 10/21/21 Status: OrderedCo Q-10 100 mg oral capsule 1 capsule, By Mouth, 4 times a day, # 120 capsule, 6 Refills, [facility], 174, cm, 02/27/21 15:17:00 EDT, Height, 81, kg, 02/27/21 14:06:00 EDT, Dry Weight Start Date: 07/08/21 Status: Orderedfluticasone 50 mcg/inh nasal spray See Instructions, USE 1 SPRAY INTO EACH NOSTRIL TWICE A DAY, # 16 Gm, 5 Refills, [facility], USE 1 SPRAY INTO EACH NOSTRIL TWICE A DAY, 174, cm, 07/14/21 8:16:00 EST, Height, 81, kg, 02/27/21 14:06:00 EDT, Dry Weight Start Date: 08/04/21 Status: Orderedfolic acid 1 mg oral tablet 1 mg, 1, tablet, By Mouth, Daily, # 90 tablet, Refills 4, Tot. Refills 4, Maintenance, 10/27/21 10:40:00 EDT, Route to Pharmacy Electronically, [facility], Partial fill upon patient request if the prescription is for a schedule II opioid drug.... Start Date: 10/27/21 Stop Date: 01/20/23 Status: Orderedgabapentin 300 mg oral capsule 300 mg, 1, capsule, By Mouth, Daily at bedtime, note dose change, # 90 capsule, Refills 4, Tot. Refills 4, Maintenance, 10/27/21 10:39:00 EDT, Route to Pharmacy Electronically, [facility], Partial fill upon patient request if the prescription... Start Date: 10/27/21 Stop Date: 01/20/23 Status: OrderedhydrOXYzine hydrochloride 25 mg oral tablet 1 TO 2 TABLETS, By Mouth, 3 times a day, PRN NEEDED FOR ANXIETY (VIAL), # 60 tablet, 0 Refills, [facility], 175, cm, 10/27/21 10:11:00 EDT, Height, 87, kg, 09/27/21 21:30:00 EDT, Dry Weight Start Date: 10/29/21 Status: Orderedlactulose 10 gm/15 ml oral syrup See Instructions, TAKE 30ML BY MOUTH THREE TIMES DAILY NEEDED TO ACHEIVE 3-4 BOWL MOVEMENTS PER DAY, # 3,000 mL, 10 Refills, [facility], 30, TAKE 30ML BY MOUTH THREE TIMES DAILY NEEDED TOACHEIVE 3-4 BOWL MOVEMENTS PER DAY, 174, cm, 02/12... Start Date: 07/02/21 Status: OrderedLasix 40 mg oral tablet 40 mg, 1, tablet, By Mouth, 2 times a day, # 60 tablet, Refills 1, Tot. Refills 1, Maintenance, 10/21/21 10:15:00 EDT, Route to Pharmacy Electronically, [facility], Partial fill upon patient request [...] a day, # 60 tablet, 0 Refills, [facility], 175, cm, 10/27/21 10:11:00 EDT, Height, 87, kg, 09/27/21 21:30:00 EDT, Dry Weight Start Date: 10/29/21 Status: OrderedMelatonin 3 mg oral tablet 1 tablet, By Mouth, Daily at bedtime, PRN NEEDED FOR INSOMNIA (PACKAGE IN TRAY), # 60 tablet, 5 Refills, Maintenance, 06/02/21 16:17:00 EST, [facility], 28, 1 tablet By Mouth [...] 10/22/21 11:42:00 EDT, Route to Pharmacy Electronically, [facility], Partialfill upon patient request if the prescription is... Start Date: 10/22/21 Stop Date: 01/15/23 Status: OrderedrifAXIMin 550 mg oral tablet 1 tablet = 550 mg, By Mouth, 2 times a day, please contact GI for refills, # 60 tablet, 0 Refills, Maintenance, 10/21/21 10:15:00 EDT, Tablet, [facility], Partial fill upon patient request if the prescription is for a schedule II opioid drug.,... Start Date: 10/21/21 Stop Date: 11/20/21 Status: YkmtscmRzz-A-Cbls oral tablet 1 tablet, By Mouth, Daily, # 90 tablet, 9 Refills, [facility], 28, TAKE 1 TABLET BY MOUTH ONCE A DAY, 174, cm, 07/14/21 8:16:00 EST, Height, 81, kg, 02/27/21 14:06:00 EDT, Dry Weight Start Date: 07/22/21 Status: OrderedtraZODone 50 mg oral tablet See Instructions, TAKE 1 TO 2 TABLETS BY MOUTH AT BEDTIME (ONE DOSE IN VIAL), # 60 tablet, Refills 0, Instructions Replace Required Details, Route to Pharmacy Electronically, [facility], 175, cm, 10/27/21 10:11:00 EDT, Height, 87, kg, 09/27/21... Start Date: 10/29/21 Status: OrderedVitamin B1 100 mg oral tablet 1, tablet, By Mouth, Daily, # 90 tablet, Refills 1, Route to Pharmacy Electronically, [facility], 174, cm, 02/27/21 15:17:00 EDT, [...] Active Vitamin D insufficiency(Confirmed) 08/16/12 Active 1refer izigj4ssf HEP C,b; immune HEP A,3r/o fupfrvoslhrddhxv5hsfhqo2xlctevxf counseling6? gyjhucr6mga RF ANCA,normal immunofixation,8lumbar puncture November 2011,neg lymenormal IGA neg SSA ,SSBnormal methylmalonic acid homocyseine9 legally blind;[id number] echo November 2014 Social History Social History Type Response Smoking Status 10 or more cigarettes (1/2 p ack or more)/day in last 30 days entered on: 02/04/19 Sex
--- OUTSIDE RECORDS SUMMARY | 2022-03-14 03:16 | XMS_ITS | Continuity of Care Document ---
:1975 Author Organization [facility] Address [address] [place] [address]- Care Team Providers Name Role Phone Jany Baig DO Primary Care Physician [place] [facility] [place]22 [facility] [address] [place] [address]- Allergies, Adverse Reactions, Alerts Substance Reaction Severity Status ibuprofen1 Hx of GI Bleed Active aspirin2 Hx GI Bleed Active Tylenol3 Cirrhosis Active NSAIDs Active 1pt advised not to take NSAIDs or Tylenol due to underlying liver disease. Also had GI side effects when took too much aspirin in the past.2pt took too much in the past and had GI side sjdoher3mg advised not to take d/t underlying liver [...] acel (oldterm) 08/02/12 Given 1Result Comment: [04/29/2017] [id number] Note: [id number] Note: 3 [id number] Note: #2 Medications acetaminophen 500 mg oral tablet 1 tablet, By Mouth, 4 times a day, PRN NEEDED FOR PAIN, MAX 4, PER DAY (VIAL., # 50 tablet, 0 Refills, Maintenance, 02/18/22 12:43:00 [facility]T, [facility], [facility], cm, 01/06/22 10:34:00 EDT, Height,78.3, kg, 12/26/21 19:05:00 EDT, Dry Weight Start Date: 02/18/22 Status: OrderedamLODIPine 5 mg oral tablet 5 mg, 1, tablet, By Mouth, Daily, # 30 tablet, Refills 5, Tot. Refills 5, Maintenance, 10/21/21 10:15:00 EDT, [facility], Partial fill upon patient request if the prescription is for a schedule II opioid drug.... Start Date: 10/21/21 Status: OrderedCo Q-10 100 mg oral capsule 1 capsule, By Mouth, 4 times a day, # 120 capsule, 5 Refills, Maintenance, 02/18/22 12:44:00 EDT, [facility], 175, cm, 01/06/22 10:34:00 EDT, Height, [...] Gm, 5 Refills, Maintenance, 02/18/22 10:02:00 EDT, [facility], 30, USE 1 SPRAY(S) INTO EACH NOSTRIL TWICE A DAY, 175, cm, 01/06/22 10:34:00 EDT, Height, 78.3, kg, 12/26/21 19... Start Date: 02/18/22 Status: Orderedfolic acid 1 mg oral tablet 1 mg, 1, tablet, By Mouth, Daily, # 90 tablet, Refills 4, Tot. Refills 4, Maintenance, 10/27/21 10:40:00 EDT, Route to Pharmacy Electronically, [facility], Partial fill upon patient request if the prescription is for a schedule II opioid drug.... Start Date: 10/27/21 Stop Date: 01/20/23 Status: Orderedfurosemide 20 mg oral tablet See Instructions, TAKE 1 TABLET BY MOUTH ONCE A DAY, # 30 tablet, Refills 0, Maintenance, 02/18/22 12:43:00 EDT, Instructions Replace Required Details, Route to Pharmacy Electronically, [facility], 175, cm, 01/06/22 10:34:00 EDT, Height, 78.3,... Start Date: 02/18/22 Status: Orderedfurosemide 20 mg oral tablet 1, tablet, By Mouth, Daily, # 30 tablet, Refills 0, Maintenance, 02/18/22 12:44:00 EDT, Route to Pharmacy Electronically, [facility], 175, cm, 01/06/22 10:34:00 EDT, Height, 78.3, kg, 12/26/21 19:05:00 EDT, Dry Weight Start Date: 02/18/22 Status: OrderedhydrOXYzine hydrochloride 25 mg oral tablet 1 TO 2 TABLETS, By Mouth, 3 times a day, PRN NEEDED FOR ANXIETY (VIAL), # 60 tablet, 0 Refills, Maintenance, 02/18/22 12:45:00 EDT, [facility], 175, cm, 01/06/22 10:34:00 EDT, Height, 78.3, kg, 12/26/21 19:05:00 EDT, Dry Weight Start Date: 02/18/22 Status: Orderedlactulose 10 gm/15 ml oral syrup See Instructions, TAKE 30ML BY MOUTH THREE TIMES DAILY NEEDED TO ACHEIVE 3-4 BOWL MOVEMENTS PER DAY, # 3,000 mL, 10 Refills, [facility], 30, TAKE 30ML BY MOUTH THREE TIMES DAILY NEEDED TOACHEIVE 3-4 BOWL MOVEMENTS PER DAY, 174, cm, 02/12... Start Date: 07/02/21 Status: Orderedlidocaine 0.5% topical gel 1 application, Topically, 3 times a day, # 120 Gm, 0 Refills, Acute 12/30/22 17:23:00 EDT, 12/30/21 17:23:00 EDT, Gel, [facility], Partial fill upon patient request if the prescription is for aschedule II opioid drug., 1 application Topically... Start Date: 12/30/21 Stop Date: 12/30/22 Status: OrderedLidoderm 5% film 1 patch, Topically, Daily, remove patches after 12 hours NSAIDS contraindicated High dose tylenol contraindicated, # 30 patch, 5 Refills, Maintenance, 12/26/21 9:33:00 EDT, [facility], Partial fill upon patient request if the prescription i... Start Date: 12/26/21 Status: Orderedmagnesium oxide 400 mg oral tablet 1 tablet, By Mouth, 2 times a day, # 60 tablet, 0 Refills, Maintenance, 02/18/22 12:43:00 EDT, [facility], 175, cm, 01/06/22 10:34:00 EDT, Height, 78.3, kg, 12/26/21 19:05:00 EDT, Dry Weight Start Date: 02/18/22 Status: OrderedMelatonin 3 mg oral tablet 1 tablet, By Mouth, Daily at bedtime, PRN NEEDED FOR INSOMNIA (PACKAGE IN TRAY), # 60 tablet, 5 Refills, Maintenance, 06/02/21 16:17:00 EST, [facility], 28, 1 tablet By [...] 10/21/21 Stop Date: 04/19/22 Status: OrderedPotassium Chloride (Tvl-Zviv-Dve M20) 20 mEq oral tablet, extended release See Instructions, TAKE 2 TABLETS BY MOUTH DAILY, # 60 tablet, 0 Refills, Maintenance, 02/18/22 12:43:00 EDT, [facility], 175, cm, 01/06/22 10:34:00 EDT, Height, 78.3, kg, 12/26/21 19:05:00 EDT,Dry Weight Start Date: 02/18/22 Status: Orderedpyridoxine 50 mg oral tablet 50 mg, 1, tablet, By Mouth, Daily, for 90 days, # 90 tablet, Refills 4, Tot. Refills 4, Acute 01/15/23 11:42:00 EDT, 10/22/21 11:42:00 EDT, [facility], Partialfill upon patient request if the prescription is... Start Date: 10/22/21 Stop Date: 01/15/23 Status: OrderedR aircast ankle-stirrup support brace R aircast ankle-stirrup support brace, See Instructions, # 1 each, Refills 0, Tot. Refills 0, Maintenance, Dx: R inversion ankle sprain s93.409a, 01/06/22 12:31:00 EDT, Supply Start Date: 01/06/22 Status: ZtvykjxYrz-Z-Ipbs oral tablet 1 tablet, By Mouth, Daily, # 90 tablet, 9 Refills, [facility], 28, TAKE 1 TABLET BY MOUTH ONCE A DAY, 174, cm, 07/14/21 8:16:00 EST, Height, 81, kg, 02/27/21 14:06:00 EDT, Dry Weight Start Date: 07/22/21 Status: OrderedtraZODone 50 mg oral tablet See Instructions, TAKE 1 TO 2 TABLETS BY MOUTH AT BEDTIME (ONE DOSE IN VIAL), # 60 tablet, Refills 0, Instructions Replace Required Details, Route to Pharmacy Electronically, [facility], 175, cm, 01/06/22 10:34:00 EDT, Height, 78.3, kg, ... Start Date: 01/30/22 Status: OrderedtraZODone 50 mg oral tablet See Instructions, TAKE 2-3 TABLETS BY MOUTH AT BEDTIME (ONE DOSE IN VIAL), # 90 tablet, Refills 5, Tot. Refills 5, Maintenance, 12/26/21 9:21:00 EDT, Instructions Replace Required Details, Route to Pharmacy Electronically, [facility], 170, cm,... Start Date: 12/26/21 Status: OrderedVitamin B1 100 mg oral tablet 1, tablet, By Mouth, Daily, # 90 tablet, Refills 0, Route to Pharmacy Electronically, [facility], 170, cm, 11/12/21 10:02:00 EDT, Height, 78, kg, 11/04/21 12:03:00 EDT, Dry Weight Start Date: 12/24/21 Status: OrderedXifaxan 550 mg oral tablet 1 tablet, By Mouth, 2 times a day, # 60 tablet, 2 Refills, [facility], 175, cm, 01/06/22 10:34:00 EDT, Height, 78.3, kg, 12/26/21 19:05:00 EDT, Dry Weight Start Date: 01/21/22 Status: Ordered Problem List Condition Effective Dates Status Health Status Informant AC joint derangement(Confirmed)1 Active H/o Acute upper GI bleed due to Active variceal bleed(Confirmed) Alcohol abuse(Confirmed) Active Alcoholic hepatitis, Active cirrhosis(Confirmed)2, 3 Anemia(Confirmed)4 Active Patellar contusion, seen by [facility] Active spring 2015(Confirmed) Esophageal varices s/p TIPS(Confirmed) [...] Active Vitamin D insufficiency(Confirmed) 08/16/12 Active 1refer [id number] HEP C,b; immune HEP A,3r/o [id number] counseling6? [id number] RF ANCA,normal immunofixation,8lumbar puncture November 2011,neg lymenormal IGA neg SSA ,SSBnormal methylmalonic acid homocyseine9 legally blind;[id number] echo November 2014 Social History Social History Type Response Smoking Status 10 or more cigarettes (1/2 p ack or more)/day in last 30 days entered on: 02/04/19 Sex Care Team PersonnelName: Jany Baig DO Address: [address] [place] [address] Adult & Pediatric Medicine [place], [place] [address]
--- OUTSIDE RECORDS SUMMARY | 2022-03-14 03:16 | XMS_ITS | Continuity of Care Document ---
:1975 Author Organization [facility] Address [address] [place] [address]- Care Team Providers Name Role Phone Jany Baig DO Primary Care Physician Encounter [facility] Date(s): 10/08/20 - 11/07/20 [facility] [address] [place] [address]- Allergies, Adverse Reactions, Alerts Substance Reaction Severity Status ibuprofen1 Hx of GI Bleed Active aspirin2 Hx GI Bleed Active Tylenol3 Cirrhosis Active NSAIDs Active 1pt advised not to take NSAIDs or Tylenol due to underlying liver disease. Also had GI side effects when took too much aspirin in the past.2pt took too much in the past and had GI side [id number] advised not to take d/t underlying liver [...] 08/02/12 Given 1Admin Note: #22Result Comment: [04/29/2017] [id number] Note: [email or web address] Admin Note: 3 RDINJ Medications baclofen 10 mg oral tablet 1, tablet, By Mouth, 3 times a day, # 90 tablet, Refills 0, Tot. Refills 0, Maintenance, 10/07/20 16:49:00 EDT, Route to Pharmacy Electronically, [facility], 178, cm, 08/31/20 11:25:00 EDT, Height, 84.9, kg, 08/31/20 1:07:00 EDT, Dry Weight Start Date: 10/07/20 Status: Orderedchantix 1mg tablet 1 tablet, By Mouth, 2 times a day, # 56 tablet, 0 Refills, Maintenance, 11/01/20 15:08:00 EDT, [facility], 178, cm, 10/22/20 13:17:00 EDT, Height, 84.9, kg, 08/31/20 1:07:00 EDT, Dry Weight Start Date: 11/01/20 Status: OrderedCo Q-10 100 mg oral capsule See Instructions, TAKE 1 CAPSULE BY MOUTH FOUR TIMES DAILY, # 120 capsule, 7 Refills, Maintenance, [facility], 178, cm, 10/22/20 13:17:00 EDT, Height, 84.9, kg, 08/31/20 1:07:00 EDT, Dry Weight Start Date: 11/01/20 Status: OrderedCo Q-10 100 mg oral capsule 1 capsule, By Mouth, 4 times a day, # 120 capsule, 11 Refills, Maintenance, 11/21/19 10:36:00 EDT, [facility]/pharmacy #[id number], 175, cm, 08/24/19 14:14:00 EDT, Height, 81.2, kg, 02/04/19 1:40:00 EDT, Dry Weight Start Date: 11/21/19 Stop Date: 11/15/20 Status: Orderedfluticasone 50 mcg/inh nasal spray See Instructions, SPRAY 1 SPRAY INTO EACH NOSTRIL TWICE A DAY, # 16 Gm, 5 Refills, 07/09/20 11:38:00EST, [facility], 30, SPRAY 1 SPRAY INTO EACH NOSTRIL TWICE A DAY, 175, cm, 04/02/20 0:35:00 EDT, Height, 100, kg, 04/02/20 0:35:00 EDT, Dry We... Start Date: 07/09/20 Status: Orderedgabapentin 600 mg oral tablet 1 tablet, By Mouth, 4 times a day, # 120 tablet, 0 Refills, Maintenance, 10/07/20 16:49:00 EDT, [facility], 178, cm, 08/31/20 11:25:00 EDT, Height, 84.9, kg, 08/31/20 1:07:00 EDT, Dry Weight Start Date: 10/07/20 Status: OrderedhydrOXYzine hydrochloride 25 mg oral tablet 1 TO 2 TABLETS, By Mouth, 3 times a day, PRN NEEDED FOR ANXIETY (VIAL), # 60 tablet, 3 Refills, Maintenance, 10/07/20 16:49:00 EDT, [facility], 178, cm, 08/31/20 11:25:00 EDT, Height, 84.9, kg, 08/31/20 1:07:00 EDT, Dry Weight Start Date: 10/07/20 Status: OrderedKeppra 500 mg oral tablet 1 tablet = 500 mg, By Mouth, 2 times a day, # 14 tablet, 0 Refills, Maintenance, 11/01/20 11:59:00 EDT, Tablet, [facility], Partial fill upon patient request if [...] EDT, 12/01/19 16:37:00 EDT, Syrup, [facility], re sent from 10/04/17, 30... Start Date: 12/01/19 Stop Date: 11/25/20 Status: Orderedmelatonin 3 mg oral tablet 1 tablet = 3 mg, By Mouth, Daily at bedtime, PRN for insomnia, # 60 tablet, 4 Refills, Maintenance, 07/18/20 17:30:00 EST, Tablet, [facility], 175, cm, 04/02/20 0:35:00 [...] Maintenance, 10/06/19 15:57:00 EDT, Tablet, [facility], 175, cm, 08/24/19 14:14:00 EDT, Height, 81.2, kg, 02/04/19 1:40:00 EDT, Dry Weight Start Date: 10/06/19 Status: Orderedsertraline 50 mg oral tablet 1 tablet, By Mouth, Daily, TAKE ALONG WITH A 100MG TABLET to equal 150mg daily, # 90 tablet, 1 Refills, Maintenance, 10/06/19 15:57:00 EDT, [facility], 175, cm, 08/24/19 14:14:00 EDT, Height, 81.2, kg, 02/04/19 1:40:00 EDT, Dry Weight Start Date: 10/06/19 Status: Orderedsildenafil 50 mg oral tablet 1 tablet = 50 mg, By Mouth, Daily, PRN erectile dysfunction, 1 hour before sexual activity, # 6 tablet, 5 Refills, Maintenance, 03/11/20 14:37:00 EDT, Tablet, [facility]/pharmacy #[id number], 175, cm, 08/24/19 14:14:00 EDT, Height, 81.2, kg, 02/04/19 1:40:00 EDT,... Start Date: 03/11/20 Status: WwpkianPqt-S-Dwvy oral tablet See Instructions, TAKE 1 TABLET BY MOUTH ONCE A DAY, # 30 tablet, 10 Refills, [place] [facility] [place], TAKE 1 TABLET BY MOUTH [...] Refills, Maintenance, 10/22/20 17:52:00 EDT, Tablet, [facility]/pharmacy #[id number], Partial fill upon patient request if [...] Details, Route to Pharmacy Electronically, [facility], 178, cm, 10/22/20... Start Date: 11/01/20 Status: OrderedVitamin B1 100 mg oral tablet 1, tablet, By Mouth, Daily, # 90 tablet, Refills 2, Tot. Refills 0, Acute, 09/05/20 17:32:00 EDT, Route to Pharmacy Electronically, [facility], 178, cm, 08/31/20 11:25:00 [...] Active Vitamin D insufficiency(Confirmed) 08/16/12 Active 1refer [id number] HEP C,b; immune HEP A,3r/o [id number] counseling6? [id number] RF ANCA,normal immunofixation,8lumbar puncture November 2011,neg lymenormal IGA neg SSA ,SSBnormal methylmalonic acid homocyseine9 legally blind;[id number] echo November 2014 Social History Social History Type Response Smoking Status 10 or more cigarettes (1/2 p ack or more)/day in last 30 days entered on: 02/04/19 Sex
--- OUTSIDE RECORDS SUMMARY | 2022-03-14 03:16 | XMS_ITS | Continuity of Care Document ---
:1975 Author Organization [facility] Address [address] [place] [address]- Care Team Providers Name Role Phone Jany Baig DO Primary Care Physician [place] [facility] [place] 01/22/21 - 02/21/21 [facility] [address] [place] [address]- Allergies, Adverse Reactions, Alerts Substance Reaction Severity Status ibuprofen1 Hx of GI Bleed Active aspirin2 Hx GI Bleed Active Tylenol3 Cirrhosis Active NSAIDs Active 1pt advised not to take NSAIDs or Tylenol due to underlying liver disease. Also had GI side effects when took too much aspirin in the past.2pt took too much in the past and had GI side [id number] advised not to take d/t underlying liver [...] 08/02/12 Given 1Admin Note: #22Result Comment: [04/29/2017] [id number] Note: [email or web address] Admin Note: 3 RDINJ Medications baclofen 10 mg oral tablet 1, tablet, By Mouth, 3 times a day, # 90 tablet, Refills 0, Route to Pharmacy Electronically, [facility], 174, cm, 02/11/21 12:09:00 EDT, Height, 86.6, kg, 02/06/21 14:20:00 EDT, Dry Weight Start Date: 02/19/21 Status: Orderedchantix 1mg tablet 1 tablet, By Mouth, 2 times a day, # 56 tablet, 0 Refills, Acute, 11/22/20 16:13:00 EDT, [facility], 178, cm, 11/12/20 15:32:00 EDT, Height, 84.9, kg, 08/31/20 1:07:00 EDT, Dry Weight Start Date: 11/22/20 Status: OrderedCo Q-10 100 mg oral capsule See Instructions, TAKE 1 CAPSULE BY MOUTH FOUR TIMES DAILY, # 120 capsule, 7 Refills, Maintenance, [facility], 178, cm, 10/22/20 13:17:00 EDT, Height, 84.9, kg, 08/31/20 1:07:00 EDT, Dry Weight Start Date: 11/01/20 Status: OrderedCo Q-10 100 mg oral capsule 1 capsule, By Mouth, 4 times a day, # 120 capsule, 11 Refills, Maintenance, 11/21/19 10:36:00 EDT, [facility]/pharmacy #[id number], 175, cm, 08/24/19 14:14:00 EDT, Height, 81.2, kg, 02/04/19 1:40:00 EDT, Dry Weight Start Date: 11/21/19 Stop Date: 11/15/20 Status: Orderedfluticasone 50 mcg/inh nasal spray See Instructions, USE 1 SPRAY INTO EACH NOSTRIL TWICE A DAY, # 16 Gm, 5 Refills, Maintenance, [facility], 30, USE 1 SPRAY INTO EACH NOSTRIL TWICE A DAY, 178, cm, 01/07/21 17:59:00 EDT, Height, 81.4, kg, 12/03/20 13:52:00 EDT, Dry Weight Start Date: 01/17/21 Status: Orderedgabapentin 600 mg oral tablet 1 tablet, By Mouth, 4 times a day, # 120 tablet, 0 Refills, [facility], 174, cm, 02/11/21 12:09:00 EDT, Height, 86.6, kg, 02/06/21 14:20:00 EDT, Dry Weight Start Date: 02/19/21 Status: OrderedhydrOXYzine hydrochloride 25 mg oral tablet 1 TO 2 TABLETS, By Mouth, 3 times a day, PRN NEEDED FOR ANXIETY (VIAL), # 60 tablet, 2 Refills, [facility], 174, cm, 02/11/21 12:09:00 EDT, Height, 86.6, kg, 02/06/21 14:20:00 EDT, Dry Weight Start Date: 02/19/21 Status: OrderedKeppra 500 mg oral tablet 1 tablet = 500 mg, By Mouth, 2 times a day, # 14 tablet, 0 Refills, Maintenance, 11/01/20 11:59:00 EDT, Tablet, [facility], Partial fill upon patient request if the prescription is for a schedule II opioid drug., 178, cm, 10/22/20 13:17:... Start Date: 11/01/20 Stop Date: 11/08/20 Status: Orderedmelatonin 3 mg oral tablet 1 tablet = 3 mg, By Mouth, Daily at bedtime, PRN for insomnia, # 60 tablet, 4 Refills, Maintenance, 07/18/20 17:30:00 EST, Tablet, [facility], 175, cm, 04/02/20 0:35:00 EDT, [...] 1 Refills, Maintenance, 10/06/19 15:57:00 EDT, Tablet, [facility], 175, cm, 08/24/19 14:14:00 EDT, Height, 81.2, kg, 02/04/19 1:40:00 EDT, Dry Weight Start Date: 10/06/19 Status: Orderedsertraline 50 mg oral tablet 1 tablet, By Mouth, Daily, TAKE ALONG WITH A 100MG TABLET to equal 150mg daily, # 90 tablet, 1 Refills, Maintenance, 10/06/19 15:57:00 EDT, [facility], 175, cm, 08/24/19 14:14:00 EDT, Height, 81.2, kg, 02/04/19 1:40:00 EDT, Dry Weight Start Date: 10/06/19 Status: Orderedsildenafil 50 mg oral tablet 1 tablet = 50 mg, By Mouth, Daily, PRN erectile dysfunction, 1 hour before sexual activity, # 6 tablet, 5 Refills, Maintenance, 03/11/20 14:37:00 EDT, Tablet, [facility]/pharmacy #[id number], 175, cm, 08/24/19 14:14:00 EDT, Height, 81.2, kg, 02/04/19 1:40:00 EDT,... Start Date: 03/11/20 Status: CsfyfnpNxu-V-Ufiy oral tablet See Instructions, TAKE 1 TABLET BY MOUTH ONCE A DAY, # 30 tablet, 10 Refills, [facility] 28, TAKE 1 TABLET BY MOUTH [...] 0 Refills, Maintenance, 10/22/20 17:52:00 EDT, Tablet, [facility]/pharmacy #[id number], Partial fill upon patient request if the prescription is for a schedule II opioid drug., 178, cm, 10/22/20 13:17:00 EDT, Height... Start Date: 10/22/20 Status: OrderedtraZODone 50 mg oral tablet See Instructions, TAKE 1 TO 2 TABLETS BY MOUTH AT BEDTIME (ONE DOSE IN VIAL), # 60 tablet, Refills 5, Instructions Replace Required Details, Route to Pharmacy Electronically, [facility], 174, cm, 02/11/21 12:09:00 EDT, Height, 86.6, kg, ... Start Date: 02/15/21 Status: OrderedVitamin B1 100 mg oral tablet 1, tablet, By Mouth, Daily, # 90 tablet, Refills 2, Tot. Refills 0, Acute, 09/05/20 17:32:00 EDT, Route to Pharmacy Electronically, [facility], 178, cm, 08/31/20 11:25:00 EDT, Height, 84.9, kg,08/31/20 1:07:00 EDT, Dry Weight Start Date: 09/05/20 Status: OrderedXifaxan 550 mg oral tablet 1 tablet, By Mouth, 2 times a day, # 60 tablet, 0 Refills, Maintenance, 04/16/20 14:45:00 EST, [facility]/pharmacy #[id number], 175, cm, 04/02/20 0:35:00 [...] Active Vitamin D insufficiency(Confirmed) 08/16/12 Active 1refer [id number] HEP C,b; immune HEP A,3r/o tfjhxzfmpmkpbepp8vvaaxa0jagthelj counseling6? [id number] RF ANCA,normal immunofixation,8lumbar puncture November 2011,neg lymenormal IGA neg SSA ,SSBnormal methylmalonic acid homocyseine9 legally blind;[id number] echo November 2014 Social History Social History Type Response Smoking Status 10 or more cigarettes (1/2 p ack or more)/day in last 30 days entered on: 02/04/19 Sex
--- OUTSIDE RECORDS SUMMARY | 2022-03-14 03:16 | XMS_ITS | Continuity of Care Document ---
:1975 Author Organization [facility] Address [address] [place] [address]- Care Team Providers Name Role Phone Jany Baig DO Primary Care Physician Encounter [facility] Date(s): 07/04/21 - 08/03/21 [facility] [address] [place] [address]- Allergies, Adverse Reactions, Alerts Substance Reaction Severity Status ibuprofen1 Hx of GI Bleed Active aspirin2 Hx GI Bleed Active Tylenol3 Cirrhosis Active NSAIDs Active 1pt advised not to take NSAIDs or Tylenol due to underlying liver disease. Also had GI side effects when took too much aspirin in the past.2pt took too much in the past and had GI side wonomtq0lz advised not to take d/t underlying liver [...] acel (oldterm) 08/02/12 Given 1Result Comment: [04/29/2017] [id number] Note: [id number] Note: 3 [id number] Note: #2 Medications baclofen 10 mg oral tablet 1, tablet, By Mouth, 3 times a day, # 90 tablet, Refills 0, Route to Pharmacy Electronically, [facility], 174, cm, 02/27/21 15:17:00 EDT, Height, 81, kg, 02/27/21 14:06:00 EDT, Dry Weight Start Date: 07/08/21 Status: Orderedchantix 1mg tablet 1 tablet, By Mouth, 2 times a day, # 56 tablet, 0 Refills, Acute, 11/22/20 16:13:00 EDT, [facility], 178, cm, 11/12/20 15:32:00 EDT, Height, 84.9, kg, 08/31/20 1:07:00 EDT, Dry Weight Start Date: 11/22/20 Status: OrderedCo Q-10 100 mg oral capsule 1 capsule, By Mouth, 4 times a day, # 120 capsule, 6 Refills, [facility], 174, cm, 02/27/21 15:17:00 EDT, Height, 81, kg, 02/27/21 14:06:00 EDT, Dry Weight Start Date: 07/08/21 Status: Orderedfluticasone 50 mcg/inh nasal spray See Instructions, USE 1 SPRAY INTO EACH NOSTRIL TWICE A DAY, # 16 Gm, 5 Refills, Maintenance, [facility], 30, USE 1 SPRAY INTO EACH NOSTRIL TWICE A DAY, 178, cm, 01/07/21 17:59:00 EDT, Height, 81.4, kg, 12/03/20 13:52:00 EDT, Dry Weight Start Date: 01/17/21 Status: Orderedgabapentin 600 mg oral tablet 1 tablet, By Mouth, 4 times a day, # 120 tablet, 0 Refills, [facility], 174, cm, 02/27/21 15:17:00 EDT, Height, 81, kg, 02/27/21 14:06:00 EDT, Dry Weight Start Date: 07/08/21 Status: OrderedhydrOXYzine hydrochloride 25 mg oral tablet 1 TO 2 TABLETS, By Mouth, 3 times a day, PRN NEEDED FOR ANXIETY (VIAL), # 60 tablet, 0 Refills, [facility], 174, cm, 02/27/21 15:17:00 EDT, Height, 81, kg, 02/27/21 14:06:00 EDT, Dry Weight Start Date: 07/08/21 Status: Orderedlactulose 10 gm/15 ml oral syrup See Instructions, TAKE 30ML BY MOUTH THREE TIMES DAILY NEEDED TO ACHEIVE 3-4 BOWL MOVEMENTS PER DAY, # 3,000 mL, 10 Refills, [facility], 30, TAKE 30ML BY MOUTH THREE TIMES DAILY NEEDED TOACHEIVE 3-4 BOWL MOVEMENTS PER DAY, 174, cm, 02/12... Start Date: 07/02/21 Status: OrderedMelatonin 3 mg oral tablet 1 tablet, By Mouth, Daily at bedtime, PRN NEEDED FOR INSOMNIA (PACKAGE IN TRAY), # 60 tablet, 5 Refills, Maintenance, 06/02/21 16:17:00 EST, [facility], 28, 1 tablet By [...] 1 Refills, Maintenance, 10/06/19 15:57:00 EDT, Tablet, [facility], 175, cm, 08/24/19 14:14:00 EDT, Height, 81.2, kg, 02/04/19 1:40:00 EDT, Dry Weight Start Date: 10/06/19 Status: Orderedsertraline 50 mg oral tablet 1 tablet, By Mouth, Daily, TAKE ALONG WITH A 100MG TABLET to equal 150mg daily, # 90 tablet, 1 Refills, Maintenance, 10/06/19 15:57:00 EDT, [facility], 175, cm, 08/24/19 14:14:00 EDT, Height, 81.2, kg, 02/04/19 1:40:00 EDT, Dry Weight Start Date: 10/06/19 Status: Orderedsildenafil 50 mg oral tablet 1 tablet = 50 mg, By Mouth, Daily, PRN erectile dysfunction, 1 hour before sexual activity, # 6 tablet, 5 Refills, Maintenance, 03/11/20 14:37:00 EDT, Tablet, [facility]/pharmacy #[id number], 175, cm, 08/24/19 14:14:00 EDT, Height, 81.2, kg, 02/04/19 1:40:00 EDT,... Start Date: 03/11/20 Status: KzpgohcJwf-V-Fmvo oral tablet 1 tablet, By Mouth, Daily, # 90 tablet, 9 Refills, [facility], 28, TAKE 1 TABLET BY MOUTH ONCE A DAY, 174, cm, 07/14/21 8:16:00 EST, Height, 81, kg, 02/27/21 14:06:00 EDT, Dry Weight Start Date: 07/22/21 Status: Orderedtranexamic acid 650 mg oral tablet 1 tablet = 650 mg, By Mouth, Daily, # 21 tablet, 0 Refills, Maintenance, 10/22/20 17:52:00 EDT, Tablet, [facility]/pharmacy #[id number], Partial fill upon patient request if the prescription is for a schedule II opioid drug., 178, cm, 10/22/20 13:17:00 EDT, Height... Start Date: 10/22/20 Status: OrderedtraZODone 50 mg oral tablet See Instructions, TAKE 1 TO 2 TABLETS BY MOUTH AT BEDTIME (ONE DOSE IN VIAL), # 60 tablet, Refills 0, Instructions Replace Required Details, Route to Pharmacy Electronically, [facility], 174, cm, 02/27/21 15:17:00 EDT, Height, 81, kg, 02/27/21... Start Date: 07/10/21 Status: OrderedtraZODone 50 mg oral tablet See Instructions, TAKE 1 TO 2 TABLETS BY MOUTH AT BEDTIME (ONE DOSE IN VIAL), # 60 tablet, Refills 5, Instructions Replace Required Details, Route to Pharmacy Electronically, [facility], 174, cm, 02/11/21 12:09:00 EDT, Height, 86.6, kg, ... Start Date: 02/15/21 Status: OrderedVitamin B1 100 mg oral tablet 1, tablet, By Mouth, Daily, # 90 tablet, Refills 1, Route to Pharmacy Electronically, [facility], 174, cm, 02/27/21 15:17:00 EDT, Height, 81, kg, 02/27/21 14:06:00 EDT, Dry Weight Start Date: 06/16/21 Status: OrderedXifaxan 550 mg oral tablet 1 tablet, By Mouth, 2 times a day, # 60 tablet, 0 Refills, Maintenance, 04/16/20 14:45:00 EST, [facility]/pharmacy #[id number], 175, cm, 04/02/20 [...] Active Vitamin D insufficiency(Confirmed) 08/16/12 Active 1refer ditnc2rtb HEP C,b; immune HEP A,3r/o itsehnaofrvyhkhi1pmmtba8ozjszsot counseling6? fjqlqtz6cyx RF ANCA,normal immunofixation,8lumbar puncture November 2011,neg lymenormal IGA neg SSA ,SSBnormal methylmalonic acid homocyseine9 legally blind;[id number] echo November 2014 Social History Social History Type Response Smoking Status 10 or more cigarettes (1/2 p ack or more)/day in last 30 days entered on: 02/04/19 Sex Male
--- OUTSIDE RECORDS SUMMARY | 2022-03-14 03:16 | XMS_ITS | Continuity of Care Document ---
:1975 Author Organization [facility] Address [address] [place] [address]- Care Team Providers Name Role Phone Jany Baig DO Primary Care Physician Encounter [facility] Date(s): 06/10/20 - 07/10/20 [facility] [address] [place] [address]- Allergies, Adverse Reactions, Alerts Substance Reaction Severity Status ibuprofen1 Hx of GI Bleed Active aspirin2 Hx GI Bleed Active Tylenol3 Cirrhosis Active NSAIDs Active 1pt advised not to take NSAIDs or Tylenol due to underlying liver disease. Also had GI side effects when took too much aspirin in the past.2pt took too much in the past and had GI side pedpdmq8ou advised not to take d/t underlying liver [...] 08/02/12 Given 1Admin Note: #22Result Comment: [04/29/2017] [id number] Note: [id number] Admin Note: 3 RDINJ Medications baclofen 10 mg oral tablet 10 mg, 1, tablet, By Mouth, 3 times a day, # 90 tablet, Refills 4, Tot. Refills 4, Maintenance, 02/16/20 17:55:00 EDT, Route to Pharmacy Electronically, [facility], 175, cm, 08/24/19 14:14:00 EDT, Height, 81.2, kg, 02/04/19 1:40:00 EDT, Dry We... Start Date: 02/16/20 Stop Date: 07/15/20 Status: Orderedchantix 1mg tablet 1 tablet, By Mouth, 2 times a day, for 12 week(s), neeeds to schedule appt, # 56 tablet, 0 Refills, Acute 09/18/20 11:11:00 EDT, 06/26/20 11:11:00 EST, [facility], 175, cm, 04/02/20 0:35:00 EDT, Height, 100, kg, 04/02/20 0:35:00 EDT, Dry Weight Start Date: 06/26/20 Stop Date: 09/18/20 Status: Orderedchantix 1mg tablet 1 tablet, By Mouth, 2 times a day, for 12 week(s), # 56 tablet, 0 Refills, Acute, 05/21/20 12:54:00 EST, [facility], 175, cm, 04/02/20 0:35:00 EDT, Height, [...] 2 Refills, Maintenance, 11/02/19 9:02:00 EDT, Suspension, [facility]/pharmacy #[id number], 175, cm, 08/24/19 14:14:00 EDT, Height, 81.2, kg, 02/04/19 1:40:00 EDT, Dry Weight Start Date: 11/02/19 Status: Orderedfluticasone 50 mcg/inh nasal spray See Instructions, SPRAY 1 SPRAY INTO EACH NOSTRIL TWICE A DAY, # 16 Gm, 5 Refills, 07/09/20 11:38:00EST, [facility], 30, SPRAY 1 SPRAY INTO EACH NOSTRIL TWICE A DAY, 175, cm, 04/02/20 0:35:00 EDT, Height, 100, kg, 04/02/20 0:35:00 EDT, Dry We... Start Date: 07/09/20 Status: Orderedgabapentin 600 mg oral tablet 1 tablet, By Mouth, 4 times a day, # 120 tablet, 2 Refills, Maintenance, 05/21/20 12:54:00 EST, [facility], 175, cm, 04/02/20 0:35:00 EDT, Height, 100, kg, 04/02/20 0:35:00 EDT, Dry Weight Start Date: 05/21/20 Status: OrderedhydrOXYzine hydrochloride 25 mg oral tablet 1 TO 2 TABLETS, By Mouth, 3 times a day, PRN NEEDED FOR ANXIETY (VIAL), # 60 tablet, 1 Refills, Acute, 05/21/20 12:54:00 EST, [facility], 175, cm, 04/02/20 0:35:00 EDT, Height, [...] 11/25/20 16:37:00 EDT, 12/01/19 16:37:00 EDT, Syrup, [facility], re sent from 10/04/17, 30... [...] 4 Refills, Maintenance, 10/06/19 16:16:00 EDT, Tablet, [facility], 175, cm, 08/24/19 14:14:00 EDT, [...] Gm, 0 Refills, Maintenance, 04/16/20 14:45:00 EST, [facility]/pharmacy #[id number], 8, APPLY TOPICALLY [...] 1 Refills, Maintenance, 10/06/19 15:57:00 EDT, Tablet, [facility], 175, cm, 08/24/19 14:14:00 EDT, Height, 81.2, kg, 02/04/19 1:40:00 EDT, Dry Weight Start Date: 10/06/19 Status: Orderedsertraline 50 mg oral tablet 1 tablet, By Mouth, Daily, TAKE ALONG WITH A 100MG TABLET to equal 150mg daily, # 90 tablet, 1 Refills, Maintenance, 10/06/19 15:57:00 EDT, [facility], 175, cm, 08/24/19 14:14:00 EDT, [...] 02/04/19 1:40:00 EDT,... Start Date: 03/11/20 Status: FtvaqocJap-N-Lgdm oral tablet 1 tablet, By Mouth, Daily, # 90 tablet, 1 Refills, Maintenance, 05/21/20 9:35:00 EST, [facility], 1 tablet By Mouth Daily, 175, [...] 09/27/19 8:51:00 EDT, Route to Pharmacy Electronically, [facility], 175, cm, 08/24/19 14:14:00 EDT, Height, [...] Active Vitamin D insufficiency(Confirmed) 08/16/12 Active 1refer bsblj2dlq HEP C,b; immune HEP A,3r/o qlvpownjsrlhnmed0vkdtgv8dtgpyreq counseling6? qtnajgj4usn RF ANCA,normal immunofixation,8lumbar puncture November 2011,neg lymenormal IGA neg SSA ,SSBnormal methylmalonic acid homocyseine9 legally blind;[id number] echo November 2014 Social History Social History Type Response Smoking Status 10 or more cigarettes (1/2 p ack or more)/day in last 30 days entered on: 02/04/19 Sex
--- OUTSIDE RECORDS SUMMARY | 2022-03-14 03:16 | XMS_ITS | Continuity of Care Document ---
:1975 Author Organization [facility] Address [address] [place] [address]- Care Team Providers Name Role Phone Jany Baig DO Primary Care Physician Encounter [facility] Date(s): 07/04/21 - 08/03/21 [facility] [address] [place] [address]- Attending Physician: Venice Salmon Admitting Physician: Venice [...] in the past and had GI side eemvdrd9ll advised not to take d/t underlying liver [...] acel (oldterm) 08/02/12 Given 1Result Comment: [04/29/2017] [id number] Note: [id number] Note: 3 [id number] Note: #2 Medications baclofen 10 mg oral tablet 1, tablet, By Mouth, 3 times a day, # 90 tablet, Refills 0, Route to Pharmacy Electronically, [facility], 174, cm, 02/27/21 15:17:00 EDT, Height, 81, kg, 02/27/21 14:06:00 EDT, Dry Weight Start Date: 07/08/21 Status: Orderedchantix 1mg tablet 1 tablet, By Mouth, 2 times a day, # 56 tablet, 0 Refills, Acute, 11/22/20 16:13:00 EDT, [facility], 178, cm, 11/12/20 15:32:00 EDT, Height, 84.9, kg, 08/31/20 1:07:00 EDT, Dry Weight Start Date: 11/22/20 Status: OrderedCo Q-10 100 mg oral capsule 1 capsule, By Mouth, 4 times a day, # 120 capsule, 6 Refills, [facility], 174, cm, 02/27/21 15:17:00 EDT, Height, 81, kg, 02/27/21 14:06:00 EDT, Dry Weight Start Date: 07/08/21 Status: Orderedfluticasone 50 mcg/inh nasal spray See Instructions, USE 1 SPRAY INTO EACH NOSTRIL TWICE A DAY, # 16 Gm, 5 Refills, Maintenance, [facility], 30, USE 1 SPRAY INTO EACH NOSTRIL TWICE A DAY, 178, cm, 01/07/21 17:59:00 EDT, Height, 81.4, kg, 12/03/20 13:52:00 EDT, Dry Weight Start Date: 01/17/21 Status: Orderedgabapentin 600 mg oral tablet 1 tablet, By Mouth, 4 times a day, # 120 tablet, 0 Refills, [facility], 174, cm, 02/27/21 15:17:00 EDT, Height, 81, kg, 02/27/21 14:06:00 EDT, Dry Weight Start Date: 07/08/21 Status: OrderedhydrOXYzine hydrochloride 25 mg oral tablet 1 TO 2 TABLETS, By Mouth, 3 times a day, PRN NEEDED FOR ANXIETY (VIAL), # 60 tablet, 0 Refills, [facility], 174, cm, 02/27/21 15:17:00 EDT, Height, 81, kg, 02/27/21 14:06:00 EDT, Dry Weight Start Date: 07/08/21 Status: Orderedlactulose 10 gm/15 ml oral syrup See Instructions, TAKE 30ML BY MOUTH THREE TIMES DAILY NEEDED TO ACHEIVE 3-4 BOWL MOVEMENTS PER DAY, # 3,000 mL, 10 Refills, [facility], 30, TAKE 30ML BY MOUTH THREE TIMES DAILY NEEDED TOACHEIVE 3-4 BOWL MOVEMENTS PER DAY, 174, cm, 02/12... Start Date: 07/02/21 Status: OrderedMelatonin 3 mg oral tablet 1 tablet, By Mouth, Daily at bedtime, PRN NEEDED FOR INSOMNIA (PACKAGE IN TRAY), # 60 tablet, 5 Refills, Maintenance, 06/02/21 16:17:00 EST, [facility], 28, 1 tablet By Mouth [...] Refills, Maintenance, 10/06/19 15:57:00 EDT, Tablet, [facility], 175, cm, 08/24/19 14:14:00 EDT, Height, 81.2, kg, 02/04/19 1:40:00 EDT, Dry Weight Start Date: 10/06/19 Status: Orderedsertraline 50 mg oral tablet 1 tablet, By Mouth, Daily, TAKE ALONG WITH A 100MG TABLET to equal 150mg daily, # 90 tablet, 1 Refills, Maintenance, 10/06/19 15:57:00 EDT, [facility], 175, cm, 08/24/19 14:14:00 EDT, Height, 81.2, kg, 02/04/19 1:40:00 EDT, Dry Weight Start Date: 10/06/19 Status: Orderedsildenafil 50 mg oral tablet 1 tablet = 50 mg, By Mouth, Daily, PRN erectile dysfunction, 1 hour before sexual activity, # 6 tablet, 5 Refills, Maintenance, 03/11/20 14:37:00 EDT, Tablet, [facility]/pharmacy #[id number], 175, cm, 08/24/19 14:14:00 EDT, Height, 81.2, kg, 02/04/19 1:40:00 EDT,... Start Date: 03/11/20 Status: YhihzhmOsc-V-Ehlp oral tablet 1 tablet, By Mouth, Daily, # 90 tablet, 9 Refills, [facility], 28, TAKE 1 TABLET BY MOUTH ONCE A DAY, 174, cm, 07/14/21 8:16:00 EST, Height, 81, kg, 02/27/21 14:06:00 EDT, Dry Weight Start Date: 07/22/21 Status: Orderedtranexamic acid 650 mg oral tablet 1 tablet = 650 mg, By Mouth, Daily, # 21 tablet, 0 Refills, Maintenance, 10/22/20 17:52:00 EDT, Tablet, [facility]/pharmacy #[id number], Partial fill upon patient request if the prescription is for a schedule II opioid drug., 178, cm, 10/22/20 13:17:00 EDT, Height... Start Date: 10/22/20 Status: OrderedtraZODone 50 mg oral tablet See Instructions, TAKE 1 TO 2 TABLETS BY MOUTH AT BEDTIME (ONE DOSE IN VIAL), # 60 tablet, Refills 0, Instructions Replace Required Details, Route to Pharmacy Electronically, [facility], 174, cm, 02/27/21 15:17:00 EDT, Height, 81, kg, 02/27/21... Start Date: 07/10/21 Status: OrderedtraZODone 50 mg oral tablet See Instructions, TAKE 1 TO 2 TABLETS BY MOUTH AT BEDTIME (ONE DOSE IN VIAL), # 60 tablet, Refills 5, Instructions Replace Required Details, Route to Pharmacy Electronically, [facility], 174, cm, 02/11/21 12:09:00 EDT, Height, 86.6, kg, ... Start Date: 02/15/21 Status: OrderedVitamin B1 100 mg oral tablet 1, tablet, By Mouth, Daily, # 90 tablet, Refills 1, Route to Pharmacy Electronically, [facility], 174, cm, 02/27/21 15:17:00 EDT, Height, 81, kg, 02/27/21 14:06:00 EDT, Dry Weight Start Date: 06/16/21 Status: OrderedXifaxan 550 mg oral tablet 1 tablet, By Mouth, 2 times a day, # 60 tablet, 0 Refills, Maintenance, 04/16/20 14:45:00 EST, [facility]/pharmacy #[id number], 175, cm, 04/02/20 0:35:00 EDT, [...] Active Vitamin D insufficiency(Confirmed) 08/16/12 Active 1refer viizh0zku HEP C,b; immune HEP A,3r/o xywsofnjqwmrikvl0bclqjl9wzbzwgtp counseling6? zjgjaqz1bdq RF ANCA,normal immunofixation,8lumbar puncture November 2011,neg lymenormal IGA neg SSA ,SSBnormal methylmalonic acid homocyseine9 legally blind;bwjcnsvwyr90ysquop echo November 2014 Social History Social History Type Response Smoking Status 10 or more cigarettes (1/2 p ack or more)/day in last 30 days entered on: 02/04/19 Sex Male
--- OUTSIDE RECORDS SUMMARY | 2022-03-14 03:16 | XMS_ITS | Continuity of Care Document ---
:1975 Author Organization [facility] Address [address] [place] [id number]- Care Team Providers Name Role Phone Jany Baig DO Primary Care Physician [place] [facility] [place] 06/28/19 - 07/28/[address] [address]- [facility] Attending Physician: Not on Staff, Attending MD [...] in the past and had GI side lwuonpz7mg advised not to take d/t underlying liver [...] acel (oldterm) 08/02/12 Given 1Result Comment: [04/29/2017] [id number] Note: [id number] Note: 3 [id number] Note: #2 Medications Co Q-10 100 mg oral capsule 1 capsule, By Mouth, 3 times a day, # 90 capsule, 11 Refills, Maintenance, 06/16/19 12:41:00 EST, [facility], 175, cm, 02/06/19 7:59:00 EDT, [...] DAY, # 16 Gm, 3 Refills, Maintenance, [facility], 30, SPRAY 1 SPRAY INTO EACH NOSTRIL TWICE A DAY, 175, cm, 02/06/19 7:59:00 EDT, Height, 81.2, kg, 02/04/19 1:40:00 EDT, Dry Weight Start Date: 06/16/19 Status: Orderedfolic acid 1 mg oral tablet See Instructions, TAKE 1 TABLET BY MOUTH ONCE A DAY, # 30 tablet, Refills 1, Maintenance, Instructions Replace Required Details, Route to Pharmacy Electronically, [facility], 175, cm, 06/20/19 12:00:00 EST, Height, 81.2, kg, 02/04/19 1:40:00 E... Start Date: 06/20/19 Status: Orderedfolic acid 1 mg oral tablet 1, tablet, By Mouth, Daily, # 30 tablet, Refills 1, Tot. Refills 0, Maintenance, 05/29/19 17:32:04 EST, Instructions Replace Required Details, Route to Pharmacy Electronically, [facility], 175,cm, 02/06/19 7:59:26 EDT, Height, [...] FOR ANXIETY, # 60 tablet,1 Refills, Acute, [facility], 175, cm, 06/20/19 12:00:00 EST, Height, 81.2, kg, 02/04/19 1:40:00 EDT, Dry Weight Start Date: 07/12/19 Status: Orderedlactulose 10 gm/15 ml oral syrup 30 mL = 20 Gm, By Mouth, 3 times a day, PRN Other, for 30 days, PRN to acheive 3-4 BMs per day, # 3,000 mL, 11 Refills, Acute 06/16/20 12:33:00 EST, 06/22/19 12:33:00 EST, Syrup, [facility], resent from 10/04/17, 30 mL [...] EDT, Dry Weight Start Date: 07/12/19 Status: OrderedrifAXIMin 550 mg oral tablet = 550 mg, By Mouth, 2 times a day, # 60 tablet, 0 Refills, Maintenance, 06/20/19 12:30:00 EST, Tablet, [facility], 175, cm, 06/20/19 12:00:00 EST, Height, 81.2, kg, 02/04/19 1:40:00 EDT, Dry Weight Start Date: 06/20/19 Stop Date: 07/20/19 Status: Orderedsertraline 100 mg oral tablet 1 tablet = 100 mg, By Mouth, Daily, combine with 50mg tab to equal 150mg daily, # 90 tablet, 0 Refills, Maintenance, 06/26/19 20:32:00 EST, Tablet, [facility], 175, cm, 06/20/19 12:00:00 EST, Height, 81.2, kg, 02/04/19 1:40:00 EDT, Dry Weight Start Date: 06/26/19 Status: Orderedsertraline 50 mg oral tablet 1 tablet, By Mouth, Daily, TAKE ALONG WITH A 100MG TABLET to equal 150mg daily, # 90 tablet, 0 Refills, Maintenance, 06/22/19 12:32:00 EST, [facility], 175, cm, 06/20/19 12:00:00 EST, Height, 81.2, kg, 02/04/19 1:40:00 EDT, Dry Weight Start Date: 06/22/19 Status: WpttbxmIfw-A-Pfpl oral tablet 1 tablet, By Mouth, Daily, # 30 tablet, 11 Refills, Maintenance, 06/16/19 12:42:00 EST, [facility], 30, TAKE 1 TABLET BY [...] TO 2 TABLETS BY MOUTH AT BEDTIME, [facility] Start Date: 01/02/19 Status: OrderedVitamin B1 100 mg oral tablet 1, tablet, By Mouth, Daily, # 90 tablet, Refills 3, Tot. Refills 0, Acute, 06/16/19 12:42:00 EST, Route to Pharmacy Electronically, [facility], 175, cm, 02/06/19 7:59:00 EDT, Height, 81.2, kg, 02/04/19 1:40:00 EDT, Dry Weight Start Date: 06/16/19 Status: OrderedXifaxan 550 mg oral tablet See Instructions, TAKE 1 TABLET BY MOUTH TWICE A DAY, # 60 tablet, 0 Refills, Maintenance, [facility], [facility], cm, 06/20/19 12:00:00 EST, Height, 81.2, kg, 02/04/19 1:40:00 EDT, Dry Weight Start Date: 07/12/19 Status: Ordered Problem List Condition Effective Dates [...] Active Vitamin D insufficiency(Confirmed) 08/16/12 Active 1refer llgmf8pdm HEP C,b; immune HEP A,3r/o ceklypsxniwurbjh7udklqw5ftcuzwmy counseling6? butjqol6hag RF ANCA,normal immunofixation,8lumbar puncture November 2011,neg lymenormal IGA neg SSA ,SSBnormal methylmalonic acid homocyseine9 legally blind;wnahetuggj94asqxkx echo November 2014 Social History Social History Type Response Smoking Status 10 or more cigarettes (1/2 p ack or more)/day in last 30 days entered on: 02/04/19 Sex
--- OUTSIDE RECORDS SUMMARY | 2022-03-14 03:16 | XMS_ITS | Continuity of Care Document ---
:1975 Author Organization [facility] Address [address] [place] [address]- Care Team Providers Name Role Phone Jany Baig DO Primary Care Physician Encounter [facility] Date(s): 02/29/20 - 03/07/20 [facility] [address] [place] [address]- [facility] Attending Physician: Jany Baig DO [...] in the past and had GI side [id number] advised not to take d/t underlying liver [...] 08/02/12 Given 1Admin Note: #22Result Comment: [04/29/2017] [id number] Note: [email or web address] Admin Note: 3 RDINJ Medications baclofen 10 mg oral tablet 10 mg, 1, tablet, By Mouth, 3 times a day, # 90 tablet, Refills 4, Tot. Refills 4, Maintenance, 02/16/20 17:55:00 EDT, Route to Pharmacy Electronically, [facility], 175, cm, 08/24/19 14:14:00 EDT, Height, 81.2, kg, 02/04/19 1:40:00 EDT, Dry We... Start Date: 02/16/20 Stop Date: 07/15/20 Status: Orderedchantix 1mg tablet See Instructions, TAKE 1 TABLET BY MOUTH TWICE A DAY WITH A FULL GLASS OF WATER AND CONTINUE FOR A TOTAL OF 12 WEEKS, # 56 tablet, 0 Refills, Maintenance, 02/16/20 17:54:00 EDT, [facility], 175, cm, 08/24/19 14:14:00 EDT, Height, 81.2, kg, 08/... Start Date: 02/16/20 Status: OrderedCo Q-10 100 mg oral capsule 1 capsule, By Mouth, 4 times a day, # 120 capsule, 11 Refills, Maintenance, 11/21/19 10:36:00 EDT, [facility]/pharmacy #[id number], 175, cm, 08/24/19 14:14:00 EDT, Height, 81.2, kg, 02/04/19 1:40:00 EDT, Dry Weight Start Date: 11/21/19 Stop Date: 11/15/20 Status: OrderedEngerix-B 20 mcg/mL intramuscular suspension = 20 mcg, Intramuscular, Every 30 days, rpt at 1 and 6 months, # 1 mL, 2 Refills, Maintenance, 11/02/19 9:02:00 EDT, Suspension, [facility]/pharmacy #[id number], 175, cm, 08/24/19 14:14:00 EDT, Height, 81.2, kg, 02/04/19 1:40:00 EDT, Dry Weight Start Date: 11/02/19 Status: Orderedfluticasone 50 mcg/inh nasal spray See Instructions, SPRAY 1 SPRAY INTO EACH NOSTRIL TWICE A DAY, # 16 Gm, 5 Refills, 01/26/20 9:52:00 EDT, [facility], 30, SPRAY 1 SPRAY INTO EACH NOSTRIL TWICE A DAY, 175, cm, 08/24/19 14:14:00 EDT, Height, 81.2, kg, 02/04/19 1:40:00 EDT, Dry W... Start Date: 01/26/20 Status: Orderedgabapentin 600 mg oral tablet 1 tablet = 600 mg, By Mouth, 4 times a day, to replace prior script, # 120 tablet, 3 Refills, Maintenance, 01/26/20 14:28:00 EDT, Tablet, [facility], 175, cm, 08/24/19 14:14:00 [...] 11/25/20 16:37:00 EDT, 12/01/19 16:37:00 EDT, Syrup, [facility], re sent from 10/04/17, [...] Maintenance, 02/06/19 10:33:12 EDT, Syrup Start Date: 8/26/19 Status: OrderedMelatonin 3 mg oral tablet 1 tablet = 3 mg, By Mouth, Daily at bedtime, PRN for insomnia, # 60 tablet, 0 Refills, Maintenance, 06/26/19 20:34:00 EST, Tablet Start Date: 06/26/19 Status: Orderedmelatonin 3 mg oral tablet 1 tablet = 3 mg, By Mouth, Daily at bedtime, PRN for insomnia, # 60 tablet, 4 Refills, Maintenance, 10/06/19 16:16:00 EDT, Tablet, [facility], 175, cm, 08/24/19 14:14:00 EDT, Height, 81.2, kg, 02/04/19 1:40:00 EDT, Dry Weight Start Date: 10/06/19 Status: Orderedmupirocin 2% topical ointment See Instructions, APPLY TOPICALLY THREE TIMES DAILY (APPLY A THIN FILM), # 22 Gm, 0 Refills, Maintenance, 02/16/20 17:55:00 EDT, [facility], 8, APPLY TOPICALLY THREE TIMES DAILY (APPLY A THIN FILM), 175, cm, 08/24/19 14:14:00 EDT, Height, 81.2... Start Date: 02/16/20 Status: Orderedmupirocin 2% topical ointment See Instructions, APPLY TOPICALLY THREE TIMES DAILY (APPLY A THIN FILM), # 22 Gm, 0 Refills, Maintenance, 01/26/20 14:28:00 EDT, [facility], 8, APPLY TOPICALLY THREE TIMES [...] 1 Refills, Maintenance, 10/06/19 15:57:00 EDT, Tablet, [facility], 175, cm, 08/24/19 14:14:00 EDT, Height, 81.2, kg, 02/04/19 1:40:00 EDT, Dry Weight Start Date: 10/06/19 Status: Orderedsertraline 50 mg oral tablet 1 tablet, By Mouth, Daily, TAKE ALONG WITH A 100MG TABLET to equal 150mg daily, # 90 tablet, 1 Refills, Maintenance, 10/06/19 15:57:00 EDT, [facility], 175, cm, 08/24/19 14:14:00 EDT, Height, 81.2, kg, 02/04/19 1:40:00 EDT, Dry Weight Start Date: 10/06/19 Status: MgmltpwShu-B-Ffov oral tablet 1 tablet, By Mouth, Daily, # 30 tablet, 11 Refills, Maintenance, 06/16/19 12:42:00 EST, [facility], 30, TAKE 1 TABLET [...] 09/27/19 8:51:00 EDT, Route to Pharmacy Electronically, [facility], 175, cm, 08/24/19 14:14:00 EDT, Height, 81.2, kg, 02/04/19 1:40:00 EDT, Dry Weight Start Date: 09/27/19 Status: OrderedXifaxan 550 mg oral tablet 1 tablet, By Mouth, 2 times a day, # 60 tablet, 0 Refills, Maintenance, 10/30/19 16:57:00 EDT, [facility], 175, cm, 08/24/19 14:14:00 EDT, Height, 81.2, kg, 02/04/19 1:40:00 EDT, Dry Weight Start Date: 10/30/19 Status: OrderedXifaxan 550 mg oral tablet See Instructions, TAKE 1 TABLET BY MOUTH TWICE A DAY, # 60 tablet, 0 Refills, 02/16/20 17:54:00 EDT,[facility], 175, cm, 08/24/19 14:14:00 EDT, Height, [...] Active Vitamin D insufficiency(Confirmed) 08/16/12 Active 1refer [id number] HEP C,b; immune HEP A,3r/o sloznoufyljwrxmv7shbrlw1lsustacj counseling6? [id number] RF ANCA,normal immunofixation,8lumbar puncture November 2011,neg lymenormal IGA neg SSA ,SSBnormal methylmalonic acid homocyseine9 legally blind;[id number] echo November 2014 Social History Social History Type Response Smoking Status 10 or more cigarettes (1/2 p ack or more)/day in last 30 days entered on: 02/04/19 Sex
--- OUTSIDE RECORDS SUMMARY | 2022-03-14 03:16 | XMS_ITS | Continuity of Care Document ---
:1975 Author Organization [facility] Address [address] [place] [address]- Care Team Providers Name Role Phone Jany Baig DO Primary Care Physician Encounter [facility] Date(s): 05/21/20 - 06/20/20 [facility] [address] [place] [address]- Allergies, Adverse Reactions, Alerts Substance Reaction Severity Status ibuprofen1 Hx of GI Bleed Active aspirin2 Hx GI Bleed Active Tylenol3 Cirrhosis Active NSAIDs Active 1pt advised not to take NSAIDs or Tylenol due to underlying liver disease. Also had GI side effects when took too much aspirin in the past.2pt took too much in the past and had GI side mnmejyc5na advised not to take d/t underlying liver [...] 08/02/12 Given 1Admin Note: #22Result Comment: [04/29/2017] [id number] Note: [email or web address] Admin Note: 3 RDINJ Medications baclofen 10 mg oral tablet 10 mg, 1, tablet, By Mouth, 3 times a day, # 90 tablet, Refills 4, Tot. Refills 4, Maintenance, 02/16/20 17:55:00 EDT, Route to Pharmacy Electronically, [facility], 175, cm, 08/24/19 14:14:00 EDT, Height, 81.2, kg, 02/04/19 1:40:00 EDT, Dry We... Start Date: 02/16/20 Stop Date: 07/15/20 Status: Orderedchantix 1mg tablet 1 tablet, By Mouth, 2 times a day, for 12 week(s), # 56 tablet, 0 Refills, Acute, 05/21/20 12:54:00 EST, [facility], 175, cm, 04/02/20 0:35:00 EDT, Height, 100, kg, 04/02/20 0:35:00 EDT, Dry Weight Start Date: 05/21/20 Stop Date: 08/13/20 Status: OrderedCo Q-10 100 mg oral capsule 1 capsule, By Mouth, 4 times a day, # 120 capsule, 11 Refills, Maintenance, 11/21/19 10:36:00 EDT, [facility]/pharmacy #[id number], 175, cm, 08/24/19 14:14:00 EDT, Height, 81.2, kg, 02/04/19 1:40:00 EDT, Dry Weight Start Date: 11/21/19 Stop Date: 11/15/20 Status: OrderedEngerix-B 20 mcg/mL intramuscular suspension = 20 mcg, Intramuscular, Every 30 days, rpt at 1 and 6 months, # 1 mL, 2 Refills, Maintenance, 11/02/19 9:02:00 EDT, Suspension, [facility]/pharmacy #[id number], 175, cm, 08/24/19 14:14:00 EDT, Height, 81.2, kg, 02/04/19 1:40:00 EDT, Dry Weight Start Date: 11/02/19 Status: Orderedfluticasone 50 mcg/inh nasal spray See Instructions, SPRAY 1 SPRAY INTO EACH NOSTRIL TWICE A DAY, # 16 Gm, 5 Refills, 01/26/20 9:52:00 EDT, [facility], 30, SPRAY 1 SPRAY INTO EACH NOSTRIL TWICE A DAY, 175, cm, 08/24/19 14:14:00 EDT, Height, 81.2, kg, 02/04/19 1:40:00 EDT, Dry W... Start Date: 01/26/20 Status: Orderedgabapentin 600 mg oral tablet 1 tablet, By Mouth, 4 times a day, # 120 tablet, 2 Refills, Maintenance, 05/21/20 12:54:00 EST, [facility], 175, cm, 04/02/20 0:35:00 EDT, Height, 100, kg, 04/02/20 0:35:00 EDT, Dry Weight Start Date: 05/21/20 Status: OrderedhydrOXYzine hydrochloride 25 mg oral tablet 1 TO 2 TABLETS, By Mouth, 3 times a day, PRN NEEDED FOR ANXIETY (VIAL), # 60 tablet, 1 Refills, Acute, 05/21/20 12:54:00 EST, [facility], 175, cm, 04/02/20 0:35:00 EDT, [...] 16:37:00 EDT, 12/01/19 16:37:00 EDT, Syrup, [facility], re sent from 10/04/17, 30... [...] Refills, Maintenance, 10/06/19 16:16:00 EDT, Tablet, [facility], 175, cm, 08/24/19 14:14:00 EDT, [...] Gm, 0 Refills, Maintenance, 04/16/20 14:45:00 EST, [facility]/pharmacy #[id number], 8, APPLY TOPICALLY [...] Refills, Maintenance, 10/06/19 15:57:00 EDT, Tablet, [facility], 175, cm, 08/24/19 14:14:00 EDT, Height, 81.2, kg, 02/04/19 1:40:00 EDT, Dry Weight Start Date: 10/06/19 Status: Orderedsertraline 50 mg oral tablet 1 tablet, By Mouth, Daily, TAKE ALONG WITH A 100MG TABLET to equal 150mg daily, # 90 tablet, 1 Refills, Maintenance, 10/06/19 15:57:00 EDT, [facility], 175, cm, 08/24/19 14:14:00 EDT, Height, 81.2, kg, 02/04/19 1:40:00 EDT, Dry Weight Start Date: 10/06/19 Status: Orderedsildenafil 50 mg oral tablet 1 tablet = 50 mg, By Mouth, Daily, PRN erectile dysfunction, 1 hour before sexual activity, # 6 tablet, 5 Refills, Maintenance, 03/11/20 14:37:00 EDT, Tablet, [facility]/pharmacy #[id number], 175, cm, 08/24/19 14:14:00 EDT, Height, 81.2, kg, 02/04/19 1:40:00 EDT,... Start Date: 03/11/20 Status: WzjluvsNbh-X-Hqkd oral tablet 1 tablet, By Mouth, Daily, # 90 tablet, 1 Refills, Maintenance, 05/21/20 9:35:00 EST, [facility], 1 tablet By Mouth Daily, [...] 09/27/19 8:51:00 EDT, Route to Pharmacy Electronically, [facility], 175, cm, 08/24/19 14:14:00 EDT, Height, 81.2, kg, 02/04/19 1:40:00 EDT, Dry Weight Start Date: 09/27/19 Status: OrderedXifaxan 550 mg oral tablet 1 tablet, By Mouth, 2 times a day, # 60 tablet, 0 Refills, Maintenance, 04/16/20 14:45:00 EST, [facility]/pharmacy #[id number], 175, cm, 04/02/20 [...] Active Vitamin D insufficiency(Confirmed) 08/16/12 Active 1refer [id number] HEP C,b; immune HEP A,3r/o uavtsvxjikobbzgn5vbnhpb9jkdxfdss counseling6? resnsij1mjs RF ANCA,normal immunofixation,8lumbar puncture November 2011,neg lymenormal IGA neg SSA ,SSBnormal methylmalonic acid homocyseine9 legally blind;[id number] echo November 2014 Social History Social History Type Response Smoking Status 10 or more cigarettes (1/2 p ack or more)/day in last 30 days entered on: 02/04/19 Sex
--- OUTSIDE RECORDS SUMMARY | 2022-03-14 03:16 | XMS_ITS | Continuity of Care Document ---
:1975 Author Organization [facility] Address [address] [place] [address]- Care Team Providers Name Role Phone Jany Baig DO Primary Care Physician Encounter [facility] Date(s): 12/30/21 - 01/29/22 [facility] [address] [place] [address]- Allergies, Adverse Reactions, Alerts Substance Reaction Severity Status ibuprofen1 Hx of GI Bleed Active aspirin2 Hx GI Bleed Active Tylenol3 Cirrhosis Active NSAIDs Active 1pt advised not to take NSAIDs or Tylenol due to underlying liver disease. Also had GI side effects when took too much aspirin in the past.2pt took too much in the past and had GI side aleukhp1lt advised not to take d/t underlying liver [...] acel (oldterm) 08/02/12 Given 1Result Comment: [04/29/2017] [id number] Note: [id number] Note: 3 [id number] Note: #2 Medications acetaminophen 500 mg oral tablet 1 tablet, By Mouth, 4 times a day, PRN NEEDED FOR PAIN, MAX 4, PER DAY (VIAL., # 50 tablet, 0 Refills, [facility], 175, cm, 01/06/22 10:34:00 EDT, Height, 78.3, kg, 12/26/21 19:05:00 EDT, Dry Weight Start Date: 01/28/22 Status: OrderedamLODIPine 5 mg oral tablet 5 mg, 1, tablet, By Mouth, Daily, # 30 tablet, Refills 5, Tot. Refills 5, Maintenance, 10/21/21 10:15:00 EDT, [facility], Partial fill upon patient request if the prescription is for a schedule II opioid drug.... Start Date: 10/21/21 Status: OrderedCo Q-10 100 mg oral capsule 1 capsule, By Mouth, 4 times a day, # 120 capsule, 6 Refills, [facility], 174, cm, 02/27/21 15:17:00 EDT, [...] A DAY, # 16 Gm, 5 Refills, [facility],30, USE 1 SPRAY INTO EACH NOSTRIL TWICE A DAY, 174, cm, 07/14/21 8:16:00 EST, Height, 81, kg, 02/27/21 14:06:00 EDT, Dry Weight Start Date: 08/04/21 Status: Orderedfolic acid 1 mg oral tablet 1 mg, 1, tablet, By Mouth, Daily, # 90 tablet, Refills 4, Tot. Refills 4, Maintenance, 10/27/21 10:40:00 EDT, Route to Pharmacy Electronically, [facility], Partial fill upon patient request if the prescription is for a schedule II opioid drug.... Start Date: 10/27/21 Stop Date: 01/20/23 Status: Orderedfurosemide 20 mg oral tablet 1, tablet, By Mouth, Daily, # 30 tablet, Refills 0, Route to Pharmacy Electronically, [facility], 175, cm, 01/06/22 10:34:00 EDT, Height, 78.3, kg, 12/26/21 19:05:00 EDT, Dry Weight Start Date: 01/21/22 Status: OrderedhydrOXYzine hydrochloride 25 mg oral tablet 1 TO 2 TABLETS, By Mouth, 3 times a day, PRN NEEDED FOR ANXIETY (VIAL), # 60 tablet, 0 Refills, [facility], 175, cm, 01/06/22 10:34:00 EDT, Height, 78.3, kg, 12/26/21 19:05:00 EDT, Dry Weight Start Date: 01/28/22 Status: Orderedlactulose 10 gm/15 ml oral syrup See Instructions, TAKE 30ML BY MOUTH THREE TIMES DAILY NEEDED TO ACHEIVE 3-4 BOWL MOVEMENTS PER DAY, # 3,000 mL, 10 Refills, [facility], 30, TAKE 30ML BY MOUTH THREE TIMES DAILY NEEDED TOACHEIVE 3-4 BOWL MOVEMENTS PER DAY, 174, cm, 02/12... Start Date: 07/02/21 Status: Orderedlidocaine 0.5% topical gel 1 application, Topically, 3 times a day, # 120 Gm, 0 Refills, Acute 12/30/22 17:23:00 EDT, 12/30/21 17:23:00 EDT, Gel, [facility], Partial fill upon patient request if the prescription is for aschedule II opioid drug., 1 application Topically... Start Date: 12/30/21 Stop Date: 12/30/22 Status: OrderedLidoderm 5% film 1 patch, Topically, Daily, remove patches after 12 hours NSAIDS contraindicated High dose tylenol contraindicated, # 30 patch, 5 Refills, Maintenance, 12/26/21 9:33:00 EDT, [facility], Partial fill upon patient request if the prescription i... Start Date: 12/26/21 Status: Orderedmagnesium oxide 400 mg oral tablet 1 tablet, By Mouth, 2 times a day, # 60 tablet, 0 Refills, [facility], 175, cm, 01/06/22 10:34:00 EDT, Height, 78.3, kg, 12/26/21 19:05:00 EDT, Dry Weight Start Date: 01/21/22 Status: OrderedMelatonin 3 mg oral tablet 1 tablet, By Mouth, Daily at bedtime, PRN NEEDED FOR INSOMNIA (PACKAGE IN TRAY), # 60 tablet, 5 Refills, Maintenance, 06/02/21 16:17:00 EST, [facility], 28, 1 tablet By Mouth [...] Refills, Maintenance, 01/28/22 10:17:00 EDT, ER Tablet, [facility], Partial fill upon patient request [...] 11:42:00 EDT, Route to Pharmacy Electronically, [facility], Partialfill upon patient request if the prescription is... Start Date: 10/22/21 Stop Date: 01/15/23 Status: OrderedR aircast ankle-stirrup support brace R aircast ankle-stirrup support brace, See Instructions, # 1 each, Refills 0, Tot. Refills 0, Maintenance, Dx: R inversion ankle sprain s93.409a, 01/06/22 12:31:00 EDT, Supply Start Date: 01/06/22 Status: XmupiucZva-F-Frle oral tablet 1 tablet, By Mouth, Daily, # 90 tablet, 9 Refills, [facility], 28, TAKE 1 TABLET BY [...] Required Details, Route to Pharmacy Electronically, [facility], 170, cm,... Start Date: 12/26/21 Status: OrderedVitamin B1 100 mg oral tablet 1, tablet, By Mouth, Daily, # 90 tablet, Refills 0, Route to Pharmacy Electronically, [facility], 170, cm, 11/12/21 10:02:00 EDT, Height, 78, kg, 11/04/21 12:03:00 EDT, Dry Weight Start Date: 12/24/21 Status: OrderedXifaxan 550 mg oral tablet 1 tablet, By Mouth, 2 times a day, # 60 tablet, 2 Refills, [facility], 175, cm, 01/06/22 10:34:00 EDT, Height, [...] Active Vitamin D insufficiency(Confirmed) 08/16/12 Active 1refer aoaxf8rdh HEP C,b; immune HEP A,3r/o bmasgexwfmszntna7rstegn1pxlbamgn counseling6? krwczvx1zaz RF ANCA,normal immunofixation,8lumbar puncture November 2011,neg lymenormal IGA neg SSA ,SSBnormal methylmalonic acid homocyseine9 legally blind;kqludqrago50mxnqer echo November 2014 Social History Social History Type Response Smoking Status 10 or more cigarettes (1/2 p ack or more)/day in last 30 days entered on: 02/04/19 Sex
--- OUTSIDE RECORDS SUMMARY | 2022-03-14 03:17 | XMS_ITS | Continuity of Care Document ---
:1975 Author Organization [address], [address] [place] [address]- Care Team Providers Name Role Phone Jany Baig DO Primary Care Physician Encounter [facility] Date(s): 10/02/20 - 11/22/[address], [address] [place], [place] [address] Attending Physician: Not on Staff, Attending MD [...] in the past and had GI side phydsol6fz advised not to take d/t underlying liver [...] 08/02/12 Given 1Admin Note: #22Result Comment: [04/29/2017] [id number] Note: [email or web address] Admin Note: 3 RDINJ Medications baclofen 10 mg oral tablet 1, tablet, By Mouth, 3 times a day, # 90 tablet, Refills 0, Tot. Refills 0, Maintenance, 11/22/20 16:13:00 EDT, Route to Pharmacy Electronically, [facility], 178, cm, 11/12/20 15:32:00 EDT, Height, 84.9, kg, 08/31/20 1:07:00 EDT, Dry Weight Start Date: 11/22/20 Status: Orderedchantix 1mg tablet 1 tablet, By Mouth, 2 times a day, # 56 tablet, 0 Refills, Acute, 11/22/20 16:13:00 EDT, [facility], 178, cm, 11/12/20 15:32:00 EDT, Height, 84.9, kg, 08/31/20 1:07:00 EDT, Dry Weight Start Date: 11/22/20 Status: OrderedCo Q-10 100 mg oral capsule See Instructions, TAKE 1 CAPSULE BY MOUTH FOUR TIMES DAILY, # 120 capsule, 7 Refills, Maintenance, [facility], 178, cm, 10/22/20 13:17:00 EDT, Height, 84.9, kg, 08/31/20 1:07:00 EDT, Dry Weight Start Date: 11/01/20 Status: OrderedCo Q-10 100 mg oral capsule 1 capsule, By Mouth, 4 times a day, # 120 capsule, 11 Refills, Maintenance, 11/21/19 10:36:00 EDT, [facility]/pharmacy #[id number], 175, cm, 08/24/19 14:14:00 EDT, Height, 81.2, kg, 02/04/19 1:40:00 EDT, Dry Weight Start Date: 11/21/19 Stop Date: 11/15/20 Status: Orderedfluticasone 50 mcg/inh nasal spray See Instructions, SPRAY 1 SPRAY INTO EACH NOSTRIL TWICE A DAY, # 16 Gm, 5 Refills, 07/09/20 11:38:00EST, [facility], 30, SPRAY 1 SPRAY INTO EACH NOSTRIL TWICE A DAY, 175, cm, 04/02/20 0:35:00 EDT, Height, 100, kg, 04/02/20 0:35:00 EDT, Dry We... Start Date: 07/09/20 Status: Orderedgabapentin 600 mg oral tablet 1 tablet, By Mouth, 4 times a day, # 120 tablet, 0 Refills, Maintenance, 11/22/20 16:13:00 EDT, [facility], 178, cm, 11/12/20 15:32:00 EDT, Height, 84.9, kg, 08/31/20 1:07:00 EDT, Dry Weight Start Date: 11/22/20 Status: OrderedhydrOXYzine hydrochloride 25 mg oral tablet 1 TO 2 TABLETS, By Mouth, 3 times a day, PRN NEEDED FOR ANXIETY (VIAL), # 60 tablet, 3 Refills, Maintenance, 10/07/20 16:49:00 EDT, [facility], 178, cm, 08/31/20 11:25:00 EDT, Height, 84.9, kg, 08/31/20 1:07:00 EDT, Dry Weight Start Date: 10/07/20 Status: OrderedKeppra 500 mg oral tablet 1 tablet = 500 mg, By Mouth, 2 times a day, # 14 tablet, 0 Refills, Maintenance, 11/01/20 11:59:00 EDT, Tablet, [facility], Partial fill upon patient [...] EDT, 12/01/19 16:37:00 EDT, Syrup, [facility], re sent from 10/04/17, 30... Start Date: 12/01/19 Stop Date: 11/25/20 Status: Orderedmelatonin 3 mg oral tablet 1 tablet = 3 mg, By Mouth, Daily at bedtime, PRN for insomnia, # 60 tablet, 4 Refills, Maintenance, 07/18/20 17:30:00 EST, Tablet, [facility], 175, cm, 04/02/20 0:35:00 [...] Maintenance, 10/06/19 15:57:00 EDT, Tablet, [facility], 175, cm, 08/24/19 14:14:00 EDT, Height, 81.2, kg, 02/04/19 1:40:00 EDT, Dry Weight Start Date: 10/06/19 Status: Orderedsertraline 50 mg oral tablet 1 tablet, By Mouth, Daily, TAKE ALONG WITH A 100MG TABLET to equal 150mg daily, # 90 tablet, 1 Refills, Maintenance, 10/06/19 15:57:00 EDT, [facility], 175, cm, 08/24/19 14:14:00 EDT, Height, 81.2, kg, 02/04/19 1:40:00 EDT, Dry Weight Start Date: 10/06/19 Status: Orderedsildenafil 50 mg oral tablet 1 tablet = 50 mg, By Mouth, Daily, PRN erectile dysfunction, 1 hour before sexual activity, # 6 tablet, 5 Refills, Maintenance, 03/11/20 14:37:00 EDT, Tablet, [facility]/pharmacy #[id number], 175, cm, 08/24/19 14:14:00 EDT, Height, 81.2, kg, 02/04/19 1:40:00 EDT,... Start Date: 03/11/20 Status: NzedyfjZps-O-Wyde oral tablet See Instructions, TAKE 1 TABLET [...] Refills, Maintenance, 10/22/20 17:52:00 EDT, Tablet, [facility]/pharmacy #[id number], Partial fill upon patient [...] Details, Route to Pharmacy Electronically, [facility], 178, cm, 10/22/20... Start Date: 11/01/20 Status: OrderedVitamin B1 100 mg oral tablet 1, tablet, By Mouth, Daily, # 90 tablet, Refills 2, Tot. Refills 0, Acute, 09/05/20 17:32:00 EDT, Route to Pharmacy Electronically, [facility], 178, cm, 08/31/20 11:25:00 EDT, Height, 84.9, kg,08/31/20 1:07:00 EDT, Dry Weight Start Date: 09/05/20 Status: OrderedXifaxan 550 mg oral tablet 1 tablet, By Mouth, 2 times a day, # 60 tablet, 0 Refills, Maintenance, 04/16/20 14:45:00 EST, [facility]/pharmacy #[id number], 175, cm, 04/02/20 0:35:00 [...] Active Vitamin D insufficiency(Confirmed) 08/16/12 Active 1refer zoiim2ppm HEP C,b; immune HEP A,3r/o wmpzpjnlykbynhri5mtvggh9ogzappzb counseling6? seajofe4fdk RF ANCA,normal immunofixation,8lumbar puncture November 2011,neg lymenormal IGA neg SSA ,SSBnormal methylmalonic acid homocyseine9 legally blind;lzurjooavk16gtvxkw echo November 2014 Social History Social History Type Response Smoking Status 10 or more cigarettes (1/2 p ack or more)/day in last 30 days entered on: 02/04/19 Sex
--- OUTSIDE RECORDS SUMMARY | 2022-03-14 03:17 | XMS_ITS | Continuity of Care Document ---
:1975 Author Organization [address], [address] [place] [address]- Care Team Providers Name Role Phone Jany Baig DO Primary Care Physician Encounter [facility] Date(s): 11/12/20 - 11/19/[address], [address] [place] [address]- Attending Physician: Magy Tatum MD Allergies, Adverse Reactions, Alerts Substance Reaction Severity Status ibuprofen1 Hx of GI Bleed Active aspirin2 Hx GI Bleed Active Tylenol3 Cirrhosis Active NSAIDs Active 1pt advised not to take NSAIDs or Tylenol due to underlying liver disease. Also had GI side effects when took too much aspirin in the past.2pt took too much in the past and had GI side [id number] advised not to take d/t underlying liver [...] 08/02/12 Given 1Admin Note: #22Result Comment: [04/29/2017] [id number] Note: [id number] Admin Note: 3 RDINJ Medications baclofen 10 mg oral tablet 1, tablet, By Mouth, 3 times a day, # 90 tablet, Refills 0, Tot. Refills 0, Maintenance, 10/07/20 16:49:00 EDT, Route to Pharmacy Electronically, [facility], 178, cm, 08/31/20 11:25:00 EDT, Height, 84.9, kg, 08/31/20 1:07:00 EDT, Dry Weight Start Date: 10/07/20 Status: Orderedchantix 1mg tablet 1 tablet, By Mouth, 2 times a day, # 56 tablet, 0 Refills, Maintenance, 11/01/20 15:08:00 EDT, [facility], 178, cm, 10/22/20 13:17:00 EDT, Height, 84.9, kg, 08/31/20 1:07:00 EDT, Dry Weight Start Date: 11/01/20 Status: OrderedCo Q-10 100 mg oral capsule See Instructions, TAKE 1 CAPSULE BY MOUTH FOUR TIMES DAILY, # 120 capsule, 7 Refills, Maintenance, [facility], 178, cm, 10/22/20 13:17:00 EDT, Height, 84.9, kg, 08/31/20 1:07:00 EDT, Dry Weight Start Date: 11/01/20 Status: OrderedCo Q-10 100 mg oral capsule 1 capsule, By Mouth, 4 times a day, # 120 capsule, 11 Refills, Maintenance, 11/21/19 10:36:00 EDT, [facility]/pharmacy #[id number], 175, cm, 08/24/19 14:14:00 EDT, Height, 81.2, kg, 02/04/19 1:40:00 EDT, Dry Weight Start Date: 11/21/19 Stop Date: 11/15/20 Status: Orderedfluticasone 50 mcg/inh nasal spray See Instructions, SPRAY 1 SPRAY INTO EACH NOSTRIL TWICE A DAY, # 16 Gm, 5 Refills, 07/09/20 11:38:00EST, [facility], 30, SPRAY 1 SPRAY INTO EACH NOSTRIL TWICE A DAY, 175, cm, 04/02/20 0:35:00 EDT, Height, 100, kg, 04/02/20 0:35:00 EDT, Dry We... Start Date: 07/09/20 Status: Orderedgabapentin 600 mg oral tablet 1 tablet, By Mouth, 4 times a day, # 120 tablet, 0 Refills, Maintenance, 10/07/20 16:49:00 EDT, [facility], 178, cm, 08/31/20 11:25:00 EDT, Height, 84.9, kg, 08/31/20 1:07:00 EDT, Dry Weight Start Date: 10/07/20 Status: OrderedhydrOXYzine hydrochloride 25 mg oral tablet 1 TO 2 TABLETS, By Mouth, 3 times a day, PRN NEEDED FOR ANXIETY (VIAL), # 60 tablet, 3 Refills, Maintenance, 10/07/20 16:49:00 EDT, [facility], 178, cm, 08/31/20 11:25:00 EDT, Height, 84.9, kg, 08/31/20 1:07:00 EDT, Dry Weight Start Date: 10/07/20 Status: OrderedKeppra 500 mg oral tablet 1 tablet = 500 mg, By Mouth, 2 times a day, # 14 tablet, 0 Refills, Maintenance, 11/01/20 11:59:00 EDT, Tablet, [facility], Partial fill upon patient [...] 11/25/20 16:37:00 EDT, 12/01/19 16:37:00 EDT, Syrup, [facility], re sent from 10/04/17, 30... Start Date: 12/01/19 Stop Date: 11/25/20 Status: Orderedmelatonin 3 mg oral tablet 1 tablet = 3 mg, By Mouth, Daily at bedtime, PRN for insomnia, # 60 tablet, 4 Refills, Maintenance, 07/18/20 17:30:00 EST, Tablet, [facility], 175, cm, 04/02/20 0:35:00 EDT, [...] 1 Refills, Maintenance, 10/06/19 15:57:00 EDT, Tablet, [facility], 175, cm, 08/24/19 14:14:00 EDT, Height, 81.2, kg, 02/04/19 1:40:00 EDT, Dry Weight Start Date: 10/06/19 Status: Orderedsertraline 50 mg oral tablet 1 tablet, By Mouth, Daily, TAKE ALONG WITH A 100MG TABLET to equal 150mg daily, # 90 tablet, 1 Refills, Maintenance, 10/06/19 15:57:00 EDT, [facility], 175, cm, 08/24/19 14:14:00 EDT, [...] 02/04/19 1:40:00 EDT,... Start Date: 03/11/20 Status: UylaikpXvw-F-Fhyv oral tablet See Instructions, TAKE 1 TABLET BY MOUTH ONCE A DAY, # 30 tablet, 10 Refills, Maintenance, [facility], 28, TAKE 1 [...] to Pharmacy Electronically, [facility], 178, cm, 10/22/20... Start Date: 11/01/20 Status: OrderedVitamin B1 100 mg oral tablet 1, tablet, By Mouth, Daily, # 90 tablet, Refills 2, Tot. Refills 0, Acute, 09/05/20 17:32:00 EDT, Route to Pharmacy Electronically, [facility], 178, cm, 08/31/20 11:25:00 EDT, [...] Active Vitamin D insufficiency(Confirmed) 08/16/12 Active 1refer mgadz0qdn HEP C,b; immune HEP A,3r/o qhnbubvlaalwxvkf1ehvies5rulvhrcl counseling6? aceyixt9xij RF ANCA,normal immunofixation,8lumbar puncture November 2011,neg lymenormal IGA neg SSA ,SSBnormal methylmalonic acid homocyseine9 legally blind;omkssucoiw39zjdtyy echo November 2014 Vital Signs Most recent to oldest [Reference Range]: 1 Height 178 cm (11/12/20 3:32 PM) Weight 86.4 kg (11/12/20 3:32 PM) Body Mass Index [18.5-24.99] 27.27 *H* (11/12/20 3:32 PM) Social History Social History Type Response Smoking Status 10 or more cigarettes (1/2 p ack or more)/day in last 30 days entered on: 02/04/19 Sex
--- OUTSIDE RECORDS SUMMARY | 2022-03-14 03:17 | XMS_ITS | Continuity of Care Document ---
:1975 Author Organization [facility] Address [address] [place] [id number]- Care Team Providers Name Role Phone Jany Baig DO Primary Care Physician [place] [facility] [place] 11/04/[place] - 11/06/[address] [address]- Encounter Diagnosis Hypokalemia (Final) - 11/04/21 Discharge Disposition: A-D/C Home Attending Physician: Gerard Ballard MD Admitting Physician: Darrell Goncalves MD Referring Physician: Not on Staff, Referring [...] in the past and had GI side [id number] advised not to take d/t underlying liver [...] acel (oldterm) 08/02/12 Given 1Result Comment: [04/29/2017] [id number] Note: [id number] Note: 3 [id number] Note: #2 Medications amLODIPine 5 mg oral tablet 5 mg, 1, tablet, By Mouth, Daily, # 30 tablet, Refills 5, Tot. Refills 5, Maintenance, 10/21/21 10:15:00 EDT, Route to Pharmacy Electronically, [facility], Partial fill upon patient request if the prescription is for a schedule II opioid drug.... Start Date: 10/21/21 Status: OrderedCo Q-10 100 mg oral capsule 1 capsule, By Mouth, 4 times a day, # 120 capsule, 6 Refills, [facility], 174, cm, 02/27/21 15:17:00 EDT, Height, 81, kg, 02/27/21 14:06:00 EDT, Dry Weight Start Date: 07/08/21 Status: Orderedfluticasone 50 mcg/inh nasal spray See Instructions, USE 1 SPRAY INTO EACH NOSTRIL TWICE A DAY, # 16 Gm, 5 Refills, [facility], USE 1 SPRAY INTO EACH NOSTRIL TWICE A DAY, 174, cm, 07/14/21 8:16:00 EST, Height, 81, kg, 02/27/21 14:06:00 EDT, Dry Weight Start Date: 08/04/21 Status: Orderedfolic acid 1 mg oral tablet 1 mg, 1, tablet, By Mouth, Daily, # 90 tablet, Refills 4, Tot. Refills 4, Maintenance, 10/27/21 10:40:00 EDT, Route to Pharmacy Electronically, [facility], Partial fill upon patient request if the prescription is for a schedule II opioid drug.... Start Date: 10/27/21 Stop Date: 01/20/23 Status: Orderedgabapentin 300 mg oral capsule 300 mg, 1, capsule, By Mouth, Daily at bedtime, note dose change, # 90 capsule, Refills 4, Tot. Refills 4, Maintenance, 10/27/21 10:39:00 EDT, Route to Pharmacy Electronically, [facility], Partial fill upon patient request if the prescription... Start Date: 10/27/21 Stop Date: 01/20/23 Status: Orderedgabapentin 300 mg oral capsule 300 mg, Capsule, By Mouth, 11/05/21 21:00:00 EDT Start Date: 11/05/21 Stop Date: 11/05/21 Status: CompletedhydrOXYzine hydrochloride 25 mg oral tablet 1 TO 2 TABLETS, By Mouth, 3 times a day, PRN NEEDED FOR ANXIETY (VIAL), # 60 tablet, 0 Refills, [facility], 175, cm, 10/27/21 10:11:00 EDT, Height, 87, kg, 09/27/21 21:30:00 EDT, Dry Weight Start Date: 10/29/21 Status: Orderedlactulose 10 gm/15 ml oral syrup See Instructions, TAKE 30ML BY MOUTH THREE TIMES DAILY NEEDED TO ACHEIVE 3-4 BOWL MOVEMENTS PER DAY, # 3,000 mL, 10 Refills, [facility], 30, TAKE 30ML BY MOUTH THREE TIMES DAILY NEEDED TOACHEIVE 3-4 BOWL MOVEMENTS PER DAY, 174, cm, 02/12... Start Date: 07/02/21 Status: OrderedLasix 40 mg oral tablet 40 mg, 1, tablet, By Mouth, 2 times a day, # 60 tablet, Refills 1, Tot. Refills 1, Maintenance, 10/21/21 10:15:00 EDT, Route to Pharmacy Electronically, [facility], Partial fill upon patient request if the prescription is for a schedule II opi... Start Date: 10/21/21 Stop Date: 12/20/21 Status: Orderedmagnesium oxide 400 mg oral tablet 1 tablet, By Mouth, 2 times a day, # 60 tablet, 0 Refills, [facility], 175, cm, 10/27/21 10:11:00 EDT, Height, 87, kg, 09/27/21 21:30:00 EDT, Dry Weight Start Date: 10/29/21 Status: OrderedMelatonin 3 mg oral tablet 1 tablet, By Mouth, Daily at bedtime, PRN NEEDED FOR INSOMNIA (PACKAGE IN TRAY), # 60 tablet, 5 Refills, Maintenance, 06/02/21 16:17:00 EST, [facility], 28, 1 tablet By [...] 10/22/21 11:42:00 EDT, Route to Pharmacy Electronically, [facility], Partialfill upon patient request if the prescription is... Start Date: 10/22/21 Stop Date: 01/15/23 Status: VcawmjvWtq-Z-Wsyx oral tablet 1 tablet, By Mouth, Daily, # 90 tablet, 9 Refills, [facility], 28, TAKE 1 TABLET BY MOUTH ONCE A DAY, 174, cm, 07/14/21 8:16:00 EST, Height, 81, kg, 02/27/21 14:06:00 EDT, Dry Weight Start Date: 07/22/21 Status: OrderedtraZODone 50 mg oral tablet See Instructions, TAKE 1 TO 2 TABLETS BY MOUTH AT BEDTIME (ONE DOSE IN VIAL), # 60 tablet, Refills 0, Instructions Replace Required Details, Route to Pharmacy Electronically, [facility], 175, cm, 10/27/21 10:11:00 EDT, Height, 87, kg, 09/27/21... Start Date: 10/29/21 Status: OrderedVitamin B1 100 mg oral tablet 1, tablet, By Mouth, Daily, # 90 tablet, Refills 1, [facility], 174, cm, 02/27/21 15:17:00 EDT, Height, 81, kg, 02/27/21 14:06:00 EDT, Dry Weight Start Date: 06/16/21 Status: OrderedXifaxan 550 mg oral tablet 1 tablet, By Mouth, 2 times a day, # 60 tablet, 1 Refills, [facility], 170, cm, 11/05/21 11:11:00 EDT, Height, [...] Active Vitamin D insufficiency(Confirmed) 08/16/12 Active 1refer qfoet2lpe HEP C,b; immune HEP A,3r/o wevvoddcpkosepoz4snwoxt1jobvubnl counseling6? lfazmay6mun RF ANCA,normal immunofixation,8lumbar puncture November 2011,neg lymenormal IGA neg SSA ,SSBnormal methylmalonic acid homocyseine9 legally blind;[id number] echo November 2014 Vital Signs Most recent to oldest 1 2 3 [Reference Range]: Height 170 cm 170 cm 170 cm (11/06/21 7:57 AM) (11/06/21 4:44 AM) (11/05/21 11: 06 PM) Weight 74.2 kg 77.2 kg 77.2 kg (11/04/21 11:50 AM) (11/04/21 5:26 AM) (11/04/21 4: 00 AM) Oxygen Saturation [94-100 100 % 100 % 100 % %] (11/06/21 4:44 AM) (11/05/21 11:06 PM) (11/05/21 5: 01 PM) Pulse Rate [55-90 bpm] 89 bpm 76 bpm 94 bpm (11/06/21 7:57 AM) (11/06/21 4:44 AM) *H* (11/05/21 11:06 P M) Body Mass Index 25.67 [18.5-24.99] *H* (11/04/21 11:50 AM) Blood Pressure 141/81 mm Hg 127/70 mm Hg 139/86 mm Hg [90-138/55-84 mm Hg] *H* (11/06/21 4:44 AM) *H* (11/06/21 7:57 AM) (11/05/21 11:06 PM) Respiratory Rate [16-30 18 br/min 18 br/min 18 br/mi n br/min] (11/06/21 4:44 AM) (11/05/21 11:06 PM) (11/05/21 8: 22 PM) Temperature [96.8-100.4 98.2 DegF 98.4 DegF 98.2 Deg F DegF] (11/06/21 4:44 AM) (11/05/21 11:06 PM) (11/05/21 5: 01 PM) Mode of Delivery (Oxygen) Room air Room air Room a ir (11/06/21 4:44 AM) (11/05/21 11:06 PM) (11/05/21 5: 01 PM) Blood pressure sites Arm, left Arm, left Arm, right (11/06/21 7:57 AM) (11/06/21 4:44 AM) (11/05/21 11: 06 PM) Temperature Route Oral Oral Oral (11/06/21 4:44 AM) (11/05/21 11:06 PM) (11/05/21 5: 01 PM) Dry Weight 78 kg 77.2 kg (11/04/21 11:50 AM) (11/04/21 5:26 AM) Weight Obtained Via Bed scale Patient/family stated (11/04/21 11:50 AM) (11/04/21 5:26 AM) Dry Weight Obtained Via Patient/family stated (11/04/21 11:50 AM) Social History Social History Type Response Smoking Status 10 or more cigarettes (1/2 p ack or more)/day in last 30 days entered on: 02/04/19 Sex
--- OUTSIDE RECORDS SUMMARY | 2022-03-14 03:17 | XMS_ITS | Continuity of Care Document ---
:[address] [facility] Address [address] [place] [address]- Care Team Providers Name Role Phone Jany Baig DO Primary Care Physician En[place] [facility] [place](s): 04/14/21 - 05/14/21 [facility] [address] [place] [address]- Allergies, Adverse Reactions, Alerts Substance Reaction Severity Status ibuprofen1 Hx of GI Bleed Active aspirin2 Hx GI Bleed Active Tylenol3 Cirrhosis Active NSAIDs Active 1pt advised not to take NSAIDs or Tylenol due to underlying liver disease. Also had GI side effects when took too much aspirin in the past.2pt took too much in the past and had GI side [id number] advised not to take d/t underlying liver [...] acel (oldterm) 08/02/12 Given 1Result Comment: [04/29/2017] [id number] Note: [id number] Note: 3 [id number] Note: #2 Medications baclofen 10 mg oral tablet 1, tablet, By Mouth, 3 times a day, # 90 tablet, Refills 0, Route to Pharmacy Electronically, [facility], 174, cm, 02/27/21 15:17:00 EDT, Height, 81, kg, 02/27/21 14:06:00 EDT, Dry Weight Start Date: 05/12/21 Status: Orderedchantix 1mg tablet 1 tablet, By Mouth, 2 times a day, # 56 tablet, 0 Refills, Acute, 11/22/20 16:13:00 EDT, [facility], 178, cm, 11/12/20 15:32:00 EDT, Height, 84.9, kg, 08/31/20 1:07:00 EDT, Dry Weight Start Date: 11/22/20 Status: OrderedCo Q-10 100 mg oral capsule See Instructions, TAKE 1 CAPSULE BY MOUTH FOUR TIMES DAILY, # 120 capsule, 7 Refills, Maintenance, [facility], 178, cm, 10/22/20 13:17:00 EDT, Height, 84.9, kg, 08/31/20 1:07:00 EDT, Dry Weight Start Date: 11/01/20 Status: OrderedCo Q-10 100 mg oral capsule 1 capsule, By Mouth, 4 times a day, # 120 capsule, 11 Refills, Maintenance, 11/21/19 10:36:00 EDT, [facility]/pharmacy #[id number], 175, cm, 08/24/19 14:14:00 EDT, Height, 81.2, kg, 02/04/19 1:40:00 EDT, Dry Weight Start Date: 11/21/19 Stop Date: 11/15/20 Status: Orderedfluticasone 50 mcg/inh nasal spray See Instructions, USE 1 SPRAY INTO EACH NOSTRIL TWICE A DAY, # 16 Gm, 5 Refills, [facility], [facility], USE 1 SPRAY INTO EACH NOSTRIL TWICE A DAY, 178, cm, 01/07/21 17:59:00 EDT, Height, 81.4, kg, 12/03/20 13:52:00 EDT, Dry Weight Start Date: 01/17/21 Status: Orderedgabapentin 600 mg oral tablet 1 tablet, By Mouth, 4 times a day, # 120 tablet, 0 Refills, [facility], 174, cm, 02/27/21 15:17:00 EDT, Height, 81, kg, 02/27/21 14:06:00 EDT, Dry Weight Start Date: 05/12/21 Status: OrderedhydrOXYzine hydrochloride 25 mg oral tablet 1 TO 2 TABLETS, By Mouth, 3 times a day, PRN NEEDED FOR ANXIETY (VIAL), # 60 tablet, 0 Refills, [facility], 174, cm, 02/27/21 15:17:00 EDT, Height, 81, kg, 02/27/21 14:06:00 EDT, Dry Weight Start Date: 05/12/21 Status: OrderedMelatonin 3 mg oral tablet 1 tablet, By Mouth, Daily at bedtime, PRN NEEDED FOR INSOMNIA (PACKAGE IN TRAY), # 60 tablet, 0 Refills, [facility], 28, TAKE 1 TABLET [...] 1 Refills, Maintenance, 10/06/19 15:57:00 EDT, Tablet, [facility], 175, cm, 08/24/19 14:14:00 EDT, Height, 81.2, kg, 02/04/19 1:40:00 EDT, Dry Weight Start Date: 10/06/19 Status: Orderedsertraline 50 mg oral tablet 1 tablet, By Mouth, Daily, TAKE ALONG WITH A 100MG TABLET to equal 150mg daily, # 90 tablet, 1 Refills, Maintenance, 10/06/19 15:57:00 EDT, [facility], 175, cm, 08/24/19 14:14:00 EDT, Height, 81.2, kg, 02/04/19 1:40:00 EDT, Dry Weight Start Date: 10/06/19 Status: Orderedsildenafil 50 mg oral tablet 1 tablet = 50 mg, By Mouth, Daily, PRN erectile dysfunction, 1 hour before sexual activity, # 6 tablet, 5 Refills, Maintenance, 03/11/20 14:37:00 EDT, Tablet, [facility]/pharmacy #[id number], 175, cm, 08/24/19 14:14:00 EDT, Height, 81.2, kg, 02/04/19 1:40:00 EDT,... Start Date: 03/11/20 Status: RbfezulWwz-Q-Rjmj oral tablet See Instructions, TAKE 1 TABLET [...] 0 Refills, Maintenance, 10/22/20 17:52:00 EDT, Tablet, [facility]/pharmacy #[id number], Partial fill upon patient request if the prescription is for a schedule II opioid drug., 178, cm, 10/22/20 13:17:00 EDT, Height... Start Date: 10/22/20 Status: OrderedtraZODone 50 mg oral tablet See Instructions, TAKE 1 TO 2 TABLETS BY MOUTH AT BEDTIME (ONE DOSE IN VIAL), # 60 tablet, Refills 5, Instructions Replace Required Details, Route to Pharmacy Electronically, [facility], 174, cm, 02/11/21 12:09:00 EDT, Height, 86.6, kg, ... Start Date: 02/15/21 Status: OrderedVitamin B1 100 mg oral tablet 1, tablet, By Mouth, Daily, # 90 tablet, Refills 2, Tot. Refills 0, Acute, 09/05/20 17:32:00 EDT, Route to Pharmacy Electronically, [facility], 178, cm, 08/31/20 11:25:00 EDT, Height, 84.9, kg,08/31/20 1:07:00 EDT, Dry Weight Start Date: 09/05/20 Status: OrderedXifaxan 550 mg oral tablet 1 tablet, By Mouth, 2 times a day, # 60 tablet, 0 Refills, Maintenance, 04/16/20 14:45:00 EST, [facility]/pharmacy #[id number], 175, cm, 04/02/20 0:35:00 [...] Active Vitamin D insufficiency(Confirmed) 08/16/12 Active 1refer mbbev6isu HEP C,b; immune HEP A,3r/o nvyqxtzivefkurnu7ioomlo8chzwwuqa counseling6? iarvpfp3khk RF ANCA,normal immunofixation,8lumbar puncture November 2011,neg lymenormal IGA neg SSA ,SSBnormal methylmalonic acid homocyseine9 legally blind;axyirnncrm88jbarsn echo November 2014 Social History Social History Type Response Smoking Status 10 or more cigarettes (1/2 p ack or more)/day in last 30 days entered on: 02/04/19 Sex Male
--- OUTSIDE RECORDS SUMMARY | 2022-03-14 03:17 | XMS_ITS | Continuity of Care Document ---
:[address] [facility] Address [address] [place] [address]- Care Team Providers Name Role Phone Jany Baig DO Primary Care Physician Encounter [facility] Date(s): 05/31/20 - 06/30/20 [facility] [address] [place] [address]- Allergies, Adverse Reactions, Alerts Substance Reaction Severity Status ibuprofen1 Hx of GI Bleed Active aspirin2 Hx GI Bleed Active Tylenol3 Cirrhosis Active NSAIDs Active 1pt advised not to take NSAIDs or Tylenol due to underlying liver disease. Also had GI side effects when took too much aspirin in the past.2pt took too much in the past and had GI side [id number] advised not to take d/t underlying liver [...] 08/02/12 Given 1Admin Note: #22Result Comment: [04/29/2017] [id number] Note: [id number] Admin Note: 3 RDINJ Medications baclofen 10 mg oral tablet 10 mg, 1, tablet, By Mouth, 3 times a day, # 90 tablet, Refills 4, Tot. Refills 4, Maintenance, 02/16/20 17:55:00 EDT, Route to Pharmacy Electronically, [facility], 175, cm, 08/24/19 14:14:00 EDT, Height, 81.2, kg, 02/04/19 1:40:00 EDT, Dry We... Start Date: 02/16/20 Stop Date: 07/15/20 Status: Orderedchantix 1mg tablet 1 tablet, By Mouth, 2 times a day, for 12 week(s), neeeds to schedule appt, # 56 tablet, 0 Refills, Acute 09/18/20 11:11:00 EDT, 06/26/20 11:11:00 EST, [facility], 175, cm, 04/02/20 0:35:00 EDT, Height, 100, kg, 04/02/20 0:35:00 EDT, Dry Weight Start Date: 06/26/20 Stop Date: 09/18/20 Status: Orderedchantix 1mg tablet 1 tablet, By Mouth, 2 times a day, for 12 week(s), # 56 tablet, 0 Refills, Acute, 05/21/20 12:54:00 EST, [facility], 175, cm, 04/02/20 0:35:00 EDT, Height, 100, kg, 04/02/20 0:35:00 EDT, Dry Weight Start Date: 05/21/20 Stop Date: 08/13/20 Status: OrderedCo Q-10 100 mg oral capsule 1 capsule, By Mouth, 4 times a day, # 120 capsule, 11 Refills, Maintenance, 11/21/19 10:36:00 EDT, [facility]/pharmacy #[id number], 175, cm, 08/24/19 14:14:00 EDT, Height, 81.2, kg, 02/04/19 1:40:00 EDT, Dry Weight Start Date: 11/21/19 Stop Date: 11/15/20 Status: OrderedEngerix-B 20 mcg/mL intramuscular suspension = 20 mcg, Intramuscular, Every 30 days, rpt at 1 and 6 months, # 1 mL, 2 Refills, Maintenance, 11/02/19 9:02:00 EDT, Suspension, [facility]/pharmacy #[id number], 175, cm, 08/24/19 14:14:00 EDT, Height, 81.2, kg, 02/04/19 1:40:00 EDT, Dry Weight Start Date: 11/02/19 Status: Orderedfluticasone 50 mcg/inh nasal spray See Instructions, SPRAY 1 SPRAY INTO EACH NOSTRIL TWICE A DAY, # 16 Gm, 5 Refills, 01/26/20 9:52:00 EDT, [facility], 30, SPRAY 1 SPRAY INTO EACH NOSTRIL TWICE A DAY, 175, cm, 08/24/19 14:14:00 EDT, Height, 81.2, kg, 02/04/19 1:40:00 EDT, Dry W... Start Date: 01/26/20 Status: Orderedgabapentin 600 mg oral tablet 1 tablet, By Mouth, 4 times a day, # 120 tablet, 2 Refills, Maintenance, 05/21/20 12:54:00 EST, [facility], 175, cm, 04/02/20 0:35:00 EDT, Height, 100, kg, 04/02/20 0:35:00 EDT, Dry Weight Start Date: 05/21/20 Status: OrderedhydrOXYzine hydrochloride 25 mg oral tablet 1 TO 2 TABLETS, By Mouth, 3 times a day, PRN NEEDED FOR ANXIETY (VIAL), # 60 tablet, 1 Refills, Acute, 05/21/20 12:54:00 EST, [facility], 175, cm, 04/02/20 0:35:00 EDT, Height, [...] 11/25/20 16:37:00 EDT, 12/01/19 16:37:00 EDT, Syrup, [facility], re sent from 10/04/17, [...] 4 Refills, Maintenance, 10/06/19 16:16:00 EDT, Tablet, [facility], 175, cm, 08/24/19 14:14:00 [...] Gm, 0 Refills, Maintenance, 04/16/20 14:45:00 EST, [facility]/pharmacy #[id number], 8, APPLY TOPICALLY THREE TIMES [...] 1 Refills, Maintenance, 10/06/19 15:57:00 EDT, Tablet, [facility], 175, cm, 08/24/19 14:14:00 EDT, Height, 81.2, kg, 02/04/19 1:40:00 EDT, Dry Weight Start Date: 10/06/19 Status: Orderedsertraline 50 mg oral tablet 1 tablet, By Mouth, Daily, TAKE ALONG WITH A 100MG TABLET to equal 150mg daily, # 90 tablet, 1 Refills, Maintenance, 10/06/19 15:57:00 EDT, [facility], 175, cm, 08/24/19 14:14:00 EDT, Height, 81.2, kg, 02/04/19 1:40:00 EDT, Dry Weight Start Date: 10/06/19 Status: Orderedsildenafil 50 mg oral tablet 1 tablet = 50 mg, By Mouth, Daily, PRN erectile dysfunction, 1 hour before sexual activity, # 6 tablet, 5 Refills, Maintenance, 03/11/20 14:37:00 EDT, Tablet, [facility]/pharmacy #[id number], 175, cm, 08/24/19 14:14:00 EDT, Height, 81.2, kg, 02/04/19 1:40:00 EDT,... Start Date: 03/11/20 Status: OjcgnnbOcu-I-Wpyy oral tablet 1 tablet, By Mouth, Daily, # 90 tablet, 1 Refills, Maintenance, 05/21/20 9:35:00 EST, [facility], 1 tablet By Mouth Daily, 175, [...] 09/27/19 8:51:00 EDT, Route to Pharmacy Electronically, [facility], 175, cm, 08/24/19 14:14:00 EDT, Height, 81.2, kg, 02/04/19 1:40:00 EDT, Dry Weight Start Date: 09/27/19 Status: OrderedXifaxan 550 mg oral tablet 1 tablet, By Mouth, 2 times a day, # 60 tablet, 0 Refills, Maintenance, 04/16/20 14:45:00 EST, [facility]/pharmacy #[id number], 175, cm, 04/02/20 0:35:00 EDT, [...] Active Vitamin D insufficiency(Confirmed) 08/16/12 Active 1refer meajg7swm HEP C,b; immune HEP A,3r/o zepnxljfwomzngwf8atqrxc6syzuayks counseling6? cjuryzt5tcb RF ANCA,normal immunofixation,8lumbar puncture November 2011,neg lymenormal IGA neg SSA ,SSBnormal methylmalonic acid homocyseine9 legally blind;[id number] echo November 2014 Social History Social History Type Response Smoking Status 10 or more cigarettes (1/2 p ack or more)/day in last 30 days entered on: 02/04/19 Sex
--- OUTSIDE RECORDS SUMMARY | 2022-03-14 03:17 | XMS_ITS | Continuity of Care Document ---
:1975 Author Organization [address], [address] [place] [address]- Care Team Providers Name Role Phone Jany Baig DO Primary Care Physician Encounter [facility] Date(s): 02/11/21 - 03/13/[address], [address] [place] [address]- Attending Physician: Venice Salmon Admitting Physician: Venice [...] in the past and had GI side [id number] advised not to take d/t underlying liver [...] acel (oldterm) 08/02/12 Given 1Result Comment: [04/29/2017] [id number] Note: [id number] Note: 3 [id number] Note: #2 Medications baclofen 10 mg oral tablet 1, tablet, By Mouth, 3 times a day, # 90 tablet, Refills 0, Route to Pharmacy Electronically, [facility], 174, cm, 02/11/21 12:09:00 EDT, Height, 86.6, kg, 02/06/21 14:20:00 EDT, Dry Weight Start Date: 02/19/21 Status: Orderedchantix 1mg tablet 1 tablet, By Mouth, 2 times a day, # 56 tablet, 0 Refills, Acute, 11/22/20 16:13:00 EDT, [facility], 178, cm, 11/12/20 15:32:00 EDT, Height, 84.9, kg, 08/31/20 1:07:00 EDT, Dry Weight Start Date: 11/22/20 Status: OrderedCo Q-10 100 mg oral capsule See Instructions, TAKE 1 CAPSULE BY MOUTH FOUR TIMES DAILY, # 120 capsule, 7 Refills, Maintenance, [facility], 178, cm, 10/22/20 13:17:00 [...] DAY, # 16 Gm, 5 Refills, Maintenance, [facility], 30, USE 1 SPRAY INTO EACH NOSTRIL TWICE A DAY, 178, cm, 01/07/21 17:59:00 EDT, Height, 81.4, kg, 12/03/20 13:52:00 EDT, Dry Weight Start Date: 01/17/21 Status: Orderedgabapentin 600 mg oral tablet 1 tablet, By Mouth, 4 times a day, # 120 tablet, 0 Refills, [facility], 174, cm, 02/11/21 12:09:00 EDT, Height, 86.6, kg, 02/06/21 14:20:00 EDT, Dry Weight Start Date: 02/19/21 Status: OrderedhydrOXYzine hydrochloride 25 mg oral tablet 1 TO 2 TABLETS, By Mouth, 3 times a day, PRN NEEDED FOR ANXIETY (VIAL), # 60 tablet, 2 Refills, [facility], 174, cm, 02/11/21 12:09:00 EDT, Height, 86.6, kg, 02/06/21 14:20:00 EDT, Dry Weight Start Date: 02/19/21 Status: Orderedmelatonin 3 mg oral tablet 1 tablet = 3 mg, By Mouth, Daily at bedtime, PRN for insomnia, # 60 tablet, 4 Refills, Maintenance, 07/18/20 17:30:00 EST, Tablet, [facility], 175, cm, 04/02/20 0:35:00 [...] 1 Refills, Maintenance, 10/06/19 15:57:00 EDT, Tablet, [facility], 175, cm, 08/24/19 14:14:00 EDT, Height, 81.2, kg, 02/04/19 1:40:00 EDT, Dry Weight Start Date: 10/06/19 Status: Orderedsertraline 50 mg oral tablet 1 tablet, By Mouth, Daily, TAKE ALONG WITH A 100MG TABLET to equal 150mg daily, # 90 tablet, 1 Refills, Maintenance, 10/06/19 15:57:00 EDT, [facility], 175, cm, 08/24/19 14:14:00 [...] 02/04/19 1:40:00 EDT,... Start Date: 03/11/20 Status: KfscjxfKyr-G-Efut oral tablet See Instructions, TAKE 1 TABLET BY MOUTH ONCE A DAY, # 30 tablet, 10 Refills, Maintenance, [facility], 28, TAKE 1 [...] Replace Required Details, Route to Pharmacy Electronically, [facility], 174, cm, 02/11/21 12:09:00 EDT, Height, 86.6, kg, ... Start Date: 02/15/21 Status: OrderedVitamin B1 100 mg oral tablet 1, tablet, By Mouth, Daily, # 90 tablet, Refills 2, Tot. Refills 0, Acute, 09/05/20 17:32:00 EDT, Route to Pharmacy Electronically, [facility], 178, cm, 08/31/20 11:25:00 EDT, Height, [...] Active Vitamin D insufficiency(Confirmed) 08/16/12 Active 1refer skxga5hfs HEP C,b; immune HEP A,3r/o eggvwqynerzcgbct9dkglkf6skvhqwns counseling6? flbggxf5oar RF ANCA,normal immunofixation,8lumbar puncture November 2011,neg lymenormal IGA neg SSA ,SSBnormal methylmalonic acid homocyseine9 legally blind;[id number] echo November 2014 Social History Social History Type Response Smoking Status 10 or more cigarettes (1/2 p ack or more)/day in last 30 days entered on: 02/04/19 Sex
--- OUTSIDE RECORDS SUMMARY | 2022-03-14 03:17 | XMS_ITS | Continuity of Care Document ---
:1975 Author Organization [facility] Address [address] [place] [address]- Care Team Providers Name Role Phone Jany Baig DO Primary Care Physician Encounter [facility] Date(s): 01/01/22 - 01/31/22 [facility] [address] [place] [address]- Allergies, Adverse Reactions, Alerts Substance Reaction Severity Status ibuprofen1 Hx of GI Bleed Active aspirin2 Hx GI Bleed Active Tylenol3 Cirrhosis Active NSAIDs Active 1pt advised not to take NSAIDs or Tylenol due to underlying liver disease. Also had GI side effects when took too much aspirin in the past.2pt took too much in the past and had GI side bhgdrpu0eg advised not to take d/t underlying liver [...] acel (oldterm) 08/02/12 Given 1Result Comment: [04/29/2017] [id number] Note: [id number] Note: 3 [id number] Note: #2 Medications acetaminophen 500 mg oral tablet 1 tablet, By Mouth, 4 times a day, PRN NEEDED FOR PAIN, MAX 4, PER DAY (VIAL., # 50 tablet, 0 Refills, [facility], 175, cm, 01/06/22 10:34:00 EDT, Height, 78.3, kg, 12/26/21 19:05:00 EDT, Dry Weight Start Date: 01/28/22 Status: OrderedamLODIPine 5 mg oral tablet 5 mg, 1, tablet, By Mouth, Daily, # 30 tablet, Refills 5, Tot. Refills 5, Maintenance, 10/21/21 10:15:00 EDT, [facility] to Pharmacy [facility], [facility], Partial fill upon patient request if the prescription is for a schedule II opioid drug.... Start Date: 10/21/21 Status: OrderedCo Q-10 100 mg oral capsule 1 capsule, By Mouth, 4 times a day, # 120 capsule, 6 Refills, [facility], 174, cm, 02/27/21 15:17:00 EDT, Height, [...] A DAY, # 16 Gm, 5 Refills, [facility],30, USE 1 SPRAY INTO EACH NOSTRIL TWICE A DAY, 174, cm, 07/14/21 8:16:00 EST, Height, 81, kg, 02/27/21 14:06:00 EDT, Dry Weight Start Date: 08/04/21 Status: Orderedfolic acid 1 mg oral tablet 1 mg, 1, tablet, By Mouth, Daily, # 90 tablet, Refills 4, Tot. Refills 4, Maintenance, 10/27/21 10:40:00 EDT, Route to Pharmacy Electronically, [facility], Partial fill upon patient request if the prescription is for a schedule II opioid drug.... Start Date: 10/27/21 Stop Date: 01/20/23 Status: Orderedfurosemide 20 mg oral tablet 1, tablet, By Mouth, Daily, # 30 tablet, Refills 0, Route to Pharmacy Electronically, [facility], 175, cm, 01/06/22 10:34:00 EDT, Height, 78.3, kg, 12/26/21 19:05:00 EDT, Dry Weight Start Date: 01/21/22 Status: OrderedhydrOXYzine hydrochloride 25 mg oral tablet 1 TO 2 TABLETS, By Mouth, 3 times a day, PRN NEEDED FOR ANXIETY (VIAL), # 60 tablet, 0 Refills, [facility], 175, cm, 01/06/22 10:34:00 EDT, Height, 78.3, kg, 12/26/21 19:05:00 EDT, Dry Weight Start Date: 01/28/22 Status: Orderedlactulose 10 gm/15 ml oral syrup See Instructions, TAKE 30ML BY MOUTH THREE TIMES DAILY NEEDED TO ACHEIVE 3-4 BOWL MOVEMENTS PER DAY, # 3,000 mL, 10 Refills, [facility], 30, TAKE 30ML BY MOUTH THREE TIMES DAILY NEEDED TOACHEIVE 3-4 BOWL MOVEMENTS PER DAY, 174, cm, 02/12... Start Date: 07/02/21 Status: Orderedlidocaine 0.5% topical gel 1 application, Topically, 3 times a day, # 120 Gm, 0 Refills, Acute 12/30/22 17:23:00 EDT, 12/30/21 17:23:00 EDT, Gel, [facility], Partial fill upon patient request if the prescription is for aschedule II opioid drug., 1 application Topically... Start Date: 12/30/21 Stop Date: 12/30/22 Status: OrderedLidoderm 5% film 1 patch, Topically, Daily, remove patches after 12 hours NSAIDS contraindicated High dose tylenol contraindicated, # 30 patch, 5 Refills, Maintenance, 12/26/21 9:33:00 EDT, [facility], Partial fill upon patient request if the prescription i... Start Date: 12/26/21 Status: Orderedmagnesium oxide 400 mg oral tablet 1 tablet, By Mouth, 2 times a day, # 60 tablet, 0 Refills, [facility], 175, cm, 01/06/22 10:34:00 EDT, Height, 78.3, kg, 12/26/21 19:05:00 EDT, Dry Weight Start Date: 01/21/22 Status: OrderedMelatonin 3 mg oral tablet 1 tablet, By Mouth, Daily at bedtime, PRN NEEDED FOR INSOMNIA (PACKAGE IN TRAY), # 60 tablet, 5 Refills, Maintenance, 06/02/21 16:17:00 EST, [facility], 28, 1 tablet By Mouth Daily [...] Refills, Maintenance, 01/28/22 10:17:00 EDT, ER Tablet, [facility], Partial fill upon patient request if the prescription is for a schedule IIopioid drug., 175, cm, 01/06/22 10:34:00 EDT, Hei... Start Date: 01/28/22 Stop Date: 03/29/22 Status: Orderedpyridoxine 50 mg oral tablet 50 mg, 1, tablet, By Mouth, Daily, for 90 days, # 90 tablet, Refills 4, Tot. Refills 4, Acute 01/15/23 11:42:00 EDT, 10/22/21 11:42:00 EDT, Route to Pharmacy Electronically, [facility], Partialfill upon patient request if the prescription is... Start Date: 10/22/21 Stop Date: 01/15/23 Status: OrderedR aircast ankle-stirrup support brace R aircast ankle-stirrup support brace, See Instructions, # 1 each, Refills 0, Tot. Refills 0, Maintenance, Dx: R inversion ankle sprain s93.409a, 01/06/22 12:31:00 EDT, Supply Start Date: 01/06/22 Status: OdsslbgXqe-L-Mwuu oral tablet 1 tablet, By Mouth, Daily, # 90 tablet, 9 Refills, [facility], 28, TAKE 1 TABLET BY MOUTH ONCE A DAY, 174, cm, 07/14/21 8:16:00 EST, Height, 81, kg, 02/27/21 14:06:00 EDT, Dry Weight Start Date: 07/22/21 Status: OrderedtraZODone 50 mg oral tablet See Instructions, TAKE 1 TO 2 TABLETS BY MOUTH AT BEDTIME (ONE DOSE IN VIAL), # 60 tablet, Refills 0, Instructions Replace Required Details, Route to Pharmacy Electronically, [facility], 175, cm, 01/06/22 10:34:00 EDT, Height, 78.3, kg, ... Start Date: 01/30/22 Status: OrderedtraZODone 50 mg oral tablet See Instructions, TAKE 2-3 TABLETS BY MOUTH AT BEDTIME (ONE DOSE IN VIAL), # 90 tablet, Refills 5, Tot. Refills 5, Maintenance, 12/26/21 9:21:00 EDT, Instructions Replace Required Details, Route to Pharmacy Electronically, [facility], 170, cm,... Start Date: 12/26/21 Status: OrderedVitamin B1 100 mg oral tablet 1, tablet, By Mouth, Daily, # 90 tablet, Refills 0, Route to Pharmacy Electronically, [facility], 170, cm, 11/12/21 10:02:00 EDT, Height, 78, kg, 11/04/21 12:03:00 EDT, Dry Weight Start Date: 12/24/21 Status: OrderedXifaxan 550 mg oral tablet 1 tablet, By Mouth, 2 times a day, # 60 tablet, 2 Refills, [facility], 175, cm, 01/06/22 10:34:00 EDT, Height, [...] Active Vitamin D insufficiency(Confirmed) 08/16/12 Active 1refer lpmcu3uwd HEP C,b; immune HEP A,3r/o glnnskogvsqhdyzu5qtbfaf4pdkjwtgn counseling6? ukszrsh2qcj RF ANCA,normal immunofixation,8lumbar puncture November 2011,neg lymenormal IGA neg SSA ,SSBnormal methylmalonic acid homocyseine9 legally blind;[id number] echo November 2014 Social History Social History Type Response Smoking Status 10 or more cigarettes (1/2 p ack or more)/day in last 30 days entered on: 02/04/19 Sex
--- OUTSIDE RECORDS SUMMARY | 2022-03-14 03:17 | XMS_ITS | Continuity of Care Document ---
:1975 Author Organization [facility] Address [address] [place] [address]- Care Team Providers Name Role Phone Jany Baig DO Primary Care Physician [facility]counter [facility] Date(s): 10/01/21 - 10/31/21 [facility] [address] [place] [address]- Allergies, Adverse Reactions, Alerts Substance Reaction Severity Status ibuprofen1 Hx of GI Bleed Active aspirin2 Hx GI Bleed Active Tylenol3 Cirrhosis Active NSAIDs Active 1pt advised not to take NSAIDs or Tylenol due to underlying liver disease. Also had GI side effects when took too much aspirin in the past.2pt took too much in the past and had GI side lyynlbv2fp advised not to take d/t underlying liver [...] acel (oldterm) 08/02/12 Given 1Result Comment: [04/29/2017] [id number] Note: [id number] Note: 3 [id number] Note: #2 Medications amLODIPine 5 mg oral tablet 5 mg, 1, tablet, By Mouth, Daily, # 30 tablet, Refills 5, Tot. Refills 5, Maintenance, 10/21/21 10:15:00 EDT, Route to Pharmacy Electronically, [facility], Partial fill upon patient request if the prescription is for a schedule II opioid drug.... Start Date: 10/21/21 Status: OrderedCo Q-10 100 mg oral capsule 1 capsule, By Mouth, 4 times a day, # 120 capsule, 6 Refills, [facility], 174, cm, 02/27/21 15:17:00 EDT, Height, 81, kg, 02/27/21 14:06:00 EDT, Dry Weight Start Date: 07/08/21 Status: Orderedfluticasone 50 mcg/inh nasal spray See Instructions, USE 1 SPRAY INTO EACH NOSTRIL TWICE A DAY, # 16 Gm, 5 Refills, [facility],30, USE 1 SPRAY INTO EACH NOSTRIL TWICE A DAY, 174, cm, 07/14/21 8:16:00 EST, Height, 81, kg, 02/27/21 14:06:00 EDT, Dry Weight Start Date: 08/04/21 Status: Orderedfolic acid 1 mg oral tablet 1 mg, 1, tablet, By Mouth, Daily, # 90 tablet, Refills 4, Tot. Refills 4, Maintenance, 10/27/21 10:40:00 EDT, Route to Pharmacy Electronically, [facility], Partial fill upon patient request if the prescription is for a schedule II opioid drug.... Start Date: 10/27/21 Stop Date: 01/20/23 Status: Orderedgabapentin 300 mg oral capsule 300 mg, 1, capsule, By Mouth, Daily at bedtime, note dose change, # 90 capsule, Refills 4, Tot. Refills 4, Maintenance, 10/27/21 10:39:00 EDT, Route to Pharmacy Electronically, [facility], Partial fill upon patient request if the prescription... Start Date: 10/27/21 Stop Date: 01/20/23 Status: OrderedhydrOXYzine hydrochloride 25 mg oral tablet 1 TO 2 TABLETS, By Mouth, 3 times a day, PRN NEEDED FOR ANXIETY (VIAL), # 60 tablet, 0 Refills, [facility], 175, cm, 10/27/21 10:11:00 EDT, Height, 87, kg, 09/27/21 21:30:00 EDT, Dry Weight Start Date: 10/29/21 Status: Orderedlactulose 10 gm/15 ml oral syrup See Instructions, TAKE 30ML BY MOUTH THREE TIMES DAILY NEEDED TO ACHEIVE 3-4 BOWL MOVEMENTS PER DAY, # 3,000 mL, 10 Refills, [facility], 30, TAKE 30ML BY MOUTH THREE TIMES DAILY NEEDED TOACHEIVE 3-4 BOWL MOVEMENTS PER DAY, 174, cm, 02/12... Start Date: 07/02/21 Status: OrderedLasix 40 mg oral tablet 40 mg, 1, tablet, By Mouth, 2 times a day, # 60 tablet, Refills 1, Tot. Refills 1, Maintenance, 10/21/21 10:15:00 EDT, Route to Pharmacy Electronically, [facility], Partial fill upon patient request [...] a day, # 60 tablet, 0 Refills, [facility], 175, cm, 10/27/21 10:11:00 EDT, Height, 87, kg, 09/27/21 21:30:00 EDT, Dry Weight Start Date: 10/29/21 Status: OrderedMelatonin 3 mg oral tablet 1 tablet, By Mouth, Daily at bedtime, PRN NEEDED FOR INSOMNIA (PACKAGE IN TRAY), # 60 tablet, 5 Refills, Maintenance, 06/02/21 16:17:00 EST, [facility], 28, 1 tablet By Mouth [...] EDT, Route to Pharmacy Electronically, [facility], Partialfill upon patient request if the prescription is... Start Date: 10/22/21 Stop Date: 01/15/23 Status: OrderedrifAXIMin 550 mg oral tablet 1 tablet = 550 mg, By Mouth, 2 times a day, please contact GI for refills, # 60 tablet, 0 Refills, Maintenance, 10/21/21 10:15:00 EDT, Tablet, [facility], Partial fill upon patient request if the prescription is for a schedule II opioid drug.,... Start Date: 10/21/21 Stop Date: 11/20/21 Status: HcmdwggLgn-P-Dwvh oral tablet 1 tablet, By Mouth, Daily, # 90 tablet, 9 Refills, [facility], 28, TAKE 1 TABLET BY MOUTH ONCE A DAY, 174, cm, 07/14/21 8:16:00 EST, Height, 81, kg, 02/27/21 14:06:00 EDT, Dry Weight Start Date: 07/22/21 Status: OrderedtraZODone 50 mg oral tablet See Instructions, TAKE 1 TO 2 TABLETS BY MOUTH AT BEDTIME (ONE DOSE IN VIAL), # 60 tablet, Refills 0, Instructions Replace Required Details, Route to Pharmacy Electronically, [facility], 175, cm, 10/27/21 10:11:00 EDT, Height, 87, kg, 09/27/21... Start Date: 10/29/21 Status: OrderedVitamin B1 100 mg oral tablet 1, tablet, By Mouth, Daily, # 90 tablet, Refills 1, Route to Pharmacy Electronically, [facility], 174, cm, 02/27/21 15:17:00 EDT, [...] Active Vitamin D insufficiency(Confirmed) 08/16/12 Active 1refer ozpob1ktl HEP C,b; immune HEP A,3r/o emaljubfpwcclnrm2pqufps3oxsdqlyf counseling6? ustnukg7daj RF ANCA,normal immunofixation,8lumbar puncture November 2011,neg lymenormal IGA neg SSA ,SSBnormal methylmalonic acid homocyseine9 legally blind;[id number] echo November 2014 Social History Social History Type Response Smoking Status 10 or more cigarettes (1/2 p ack or more)/day in last 30 days entered on: 02/04/19 Sex
--- OUTSIDE RECORDS SUMMARY | 2022-03-14 03:17 | XMS_ITS | Continuity of Care Document ---
:[address] [facility] Address [address] [place] [address]- Care Team Providers Name Role Phone Jany Baig DO Primary Care Physician [facility]counter [facility] Date(s): 01/21/22 - 02/20/22 [facility] [address] [place] [address]- Allergies, Adverse Reactions, Alerts Substance Reaction Severity Status ibuprofen1 Hx of GI Bleed Active aspirin2 Hx GI Bleed Active Tylenol3 Cirrhosis Active NSAIDs Active 1pt advised not to take NSAIDs or Tylenol due to underlying liver disease. Also had GI side effects when took too much aspirin in the past.2pt took too much in the past and had GI side [id number] advised not to take d/t underlying liver [...] acel (oldterm) 08/02/12 Given 1Result Comment: [04/29/2017] [id number] Note: [id number] Note: 3 [id number] Note: #2 Medications acetaminophen 500 mg oral tablet 1 tablet, By Mouth, 4 times a day, PRN NEEDED FOR PAIN, MAX 4, PER DAY (VIAL., # 50 tablet, 0 Refills, Maintenance, 02/18/22 12:43:00 EDT, [facility], 175, cm, 01/06/22 10:34:00 EDT, Height,78.3, kg, 12/26/21 19:05:00 EDT, Dry Weight Start Date: 02/18/22 Status: OrderedamLODIPine 5 mg oral tablet 5 mg, 1, tablet, By Mouth, Daily, # 30 tablet, Refills 5, Tot. Refills 5, Maintenance, 10/21/21 10:15:00 EDT, Route to Pharmacy Electronically, [facility], Partial fill upon patient request if the prescription is for a schedule II opioid drug.... Start Date: 10/21/21 Status: OrderedCo Q-10 100 mg oral capsule 1 capsule, By Mouth, 4 times a day, # 120 capsule, 5 Refills, Maintenance, 02/18/22 12:44:00 EDT, [facility], 175, cm, 01/06/22 10:34:00 EDT, Height, [...] Gm, 5 Refills, Maintenance, 02/18/22 10:02:00 EDT, [facility], 30, USE 1 SPRAY(S) INTO EACH NOSTRIL TWICE A DAY, 175, cm, 01/06/22 10:34:00 EDT, Height, 78.3, kg, 12/26/21 19... Start Date: 02/18/22 Status: Orderedfolic acid 1 mg oral tablet 1 mg, 1, tablet, By Mouth, Daily, # 90 tablet, Refills 4, Tot. Refills 4, Maintenance, 10/27/21 10:40:00 EDT, Route to Pharmacy Electronically, [facility], Partial fill upon patient request if the prescription is for a schedule II opioid drug.... Start Date: 10/27/21 Stop Date: 01/20/23 Status: Orderedfurosemide 20 mg oral tablet See Instructions, TAKE 1 TABLET BY MOUTH ONCE A DAY, # 30 tablet, Refills 0, Maintenance, 02/18/22 12:43:00 EDT, Instructions Replace Required Details, Route to Pharmacy Electronically, [facility], 175, cm, 01/06/22 10:34:00 EDT, Height, 78.3,... Start Date: 02/18/22 Status: Orderedfurosemide 20 mg oral tablet 1, tablet, By Mouth, Daily, # 30 tablet, Refills 0, Maintenance, 02/18/22 12:44:00 EDT, Route to Pharmacy Electronically, [facility], 175, cm, 01/06/22 10:34:00 EDT, Height, 78.3, kg, 12/26/21 19:05:00 EDT, Dry Weight Start Date: 02/18/22 Status: OrderedhydrOXYzine hydrochloride 25 mg oral tablet 1 TO 2 TABLETS, By Mouth, 3 times a day, PRN NEEDED FOR ANXIETY (VIAL), # 60 tablet, 0 Refills, Maintenance, 02/18/22 12:45:00 EDT, [facility], 175, cm, 01/06/22 10:34:00 EDT, Height, 78.3, kg, 12/26/21 19:05:00 EDT, Dry Weight Start Date: 02/18/22 Status: Orderedlactulose 10 gm/15 ml oral syrup See Instructions, TAKE 30ML BY MOUTH THREE TIMES DAILY NEEDED TO ACHEIVE 3-4 BOWL MOVEMENTS PER DAY, # 3,000 mL, 10 Refills, [facility], 30, TAKE 30ML BY MOUTH THREE TIMES DAILY NEEDED TOACHEIVE 3-4 BOWL MOVEMENTS PER DAY, 174, cm, 02/12... Start Date: 07/02/21 Status: Orderedlidocaine 0.5% topical gel 1 application, Topically, 3 times a day, # 120 Gm, 0 Refills, Acute 12/30/22 17:23:00 EDT, 12/30/21 17:23:00 EDT, Gel, [facility], Partial fill upon patient request if the prescription is for aschedule II opioid drug., 1 application Topically... Start Date: 12/30/21 Stop Date: 12/30/22 Status: OrderedLidoderm 5% film 1 patch, Topically, Daily, remove patches after 12 hours NSAIDS contraindicated High dose tylenol contraindicated, # 30 patch, 5 Refills, Maintenance, 12/26/21 9:33:00 EDT, [facility], Partial fill upon patient request if the prescription i... Start Date: 12/26/21 Status: Orderedmagnesium oxide 400 mg oral tablet 1 tablet, By Mouth, 2 times a day, # 60 tablet, 0 Refills, Maintenance, 02/18/22 12:43:00 EDT, [facility], 175, cm, 01/06/22 10:34:00 EDT, Height, 78.3, kg, 12/26/21 19:05:00 EDT, Dry Weight Start Date: 02/18/22 Status: OrderedMelatonin 3 mg oral tablet 1 tablet, By Mouth, Daily at bedtime, PRN NEEDED FOR INSOMNIA (PACKAGE IN TRAY), # 60 tablet, 5 Refills, Maintenance, 06/02/21 16:17:00 EST, [facility], 28, 1 tablet By Mouth Daily [...] 10/21/21 Stop Date: 04/19/22 Status: OrderedPotassium Chloride (Ibj-Hbqj-Yfl M20) 20 mEq oral tablet, extended release See Instructions, TAKE 2 TABLETS BY MOUTH DAILY, # 60 tablet, 0 Refills, Maintenance, 02/18/22 12:43:00 EDT, [facility], 175, cm, 01/06/22 10:34:00 EDT, Height, 78.3, kg, 12/26/21 19:05:00 EDT,Dry Weight Start Date: 02/18/22 Status: Orderedpyridoxine 50 mg oral tablet 50 mg, 1, tablet, By Mouth, Daily, for 90 days, # 90 tablet, Refills 4, Tot. Refills 4, Acute 01/15/23 11:42:00 EDT, 10/22/21 11:42:00 EDT, [facility], Partialfill upon patient request if the prescription is... Start Date: 10/22/21 Stop Date: 01/15/23 Status: OrderedR aircast ankle-stirrup support brace R aircast ankle-stirrup support brace, See Instructions, # 1 each, Refills 0, Tot. Refills 0, Maintenance, Dx: R inversion ankle sprain s93.409a, 01/06/22 12:31:00 EDT, Supply Start Date: 01/06/22 Status: HnzivgsRqq-I-Tkye oral tablet 1 tablet, By Mouth, Daily, # 90 tablet, 9 Refills, [facility], 28, TAKE 1 TABLET BY MOUTH [...] Electronically, [facility], 175, cm, 01/06/22 10:34:00 EDT, Height, 78.3, kg, ... Start Date: 01/30/22 Status: OrderedtraZODone 50 mg oral tablet See Instructions, TAKE 2-3 TABLETS BY MOUTH AT BEDTIME (ONE DOSE IN VIAL), # 90 tablet, Refills 5, Tot. Refills 5, Maintenance, 12/26/21 9:21:00 EDT, Instructions Replace Required Details, Route to Pharmacy Electronically, [facility], 170, cm,... Start Date: 12/26/21 Status: OrderedVitamin B1 100 mg oral tablet 1, tablet, By Mouth, Daily, # 90 tablet, Refills 0, Route to Pharmacy Electronically, [facility], 170, cm, 11/12/21 10:02:00 EDT, Height, 78, kg, 11/04/21 12:03:00 EDT, Dry Weight Start Date: 12/24/21 Status: OrderedXifaxan 550 mg oral tablet 1 tablet, By Mouth, 2 times a day, # 60 tablet, 2 Refills, [facility], 175, cm, 01/06/22 10:34:00 EDT, Height, [...] Active Vitamin D insufficiency(Confirmed) 08/16/12 Active 1refer mgpnk3ycz HEP C,b; immune HEP A,3r/o kkfiodwrdfrzszct1oxmtur7qvaloazv counseling6? offuhgq6wil RF ANCA,normal immunofixation,8lumbar puncture November 2011,neg lymenormal IGA neg SSA ,SSBnormal methylmalonic acid homocyseine9 legally blind;[id number] echo November 2014 Social History Social History Type Response Smoking Status 10 or more cigarettes (1/2 p ack or more)/day in last 30 days entered on: 02/04/19 Sex Care Team PersonnelName: Jany Bagi DO Address: [address] [place] [address] Adult & Pediatric Medicine [place], [place] [address]
--- OUTSIDE RECORDS SUMMARY | 2022-03-14 03:17 | XMS_ITS | Continuity of Care Document ---
:1975 Author Organization [facility] Address [address] [place] [address]- Care Team Providers Name Role Phone Jany Baig DO Primary Care Physician Encounter [facility] Date(s): 08/24/19 - 08/31/19 [facility] [address] [place] [address]- [facility] Attending Physician: Jany Baig DO Allergies, [...] in the past and had GI side [id number] advised not to take d/t underlying liver [...] acel (oldterm) 08/02/12 Given 1Result Comment: [04/29/2017] [id number] Note: [id number] Note: 3 [id number] Note: #2 Medications chantix 1mg tablet 1 tablet = 1 mg, By Mouth, 2 times a day, with a full glass of water, continue for total of 12 wks, # 56 tablet, 1 Refills, Maintenance, 08/24/19 14:54:00 EDT, Tablet, [facility], 175, cm, 08/24/19 14:14:00 EDT, Height, 81.2, kg, 02/04/19 1:40... Start Date: 08/24/19 Status: OrderedCo Q-10 100 mg oral capsule 1 capsule, By Mouth, 3 times a day, # 90 capsule, 11 Refills, Maintenance, 06/16/19 12:41:00 EST, [facility], 175, cm, 02/06/19 7:59:00 EDT, Height, [...] months, # 1 mL, 2 Refills, Maintenance, 08/30/19 16:42:00 EDT, Suspension, [facility], 175, cm, 08/24/19 14:14:00 EDT, Height, 81.2, kg, 02/04/19 1:40:00 EDT, Dry Weight Start Date: 08/30/19 Status: Orderedfluticasone 50 mcg/inh nasal spray See Instructions, SPRAY 1 SPRAY INTO EACH NOSTRIL TWICE A DAY, # 16 Gm, 3 Refills, Maintenance, [facility], 30, SPRAY 1 SPRAY INTO EACH NOSTRIL TWICE A DAY, 175, cm, 02/06/19 7:59:00 EDT, Height, 81.2, kg, 02/04/19 1:40:00 EDT, Dry Weight Start Date: 06/16/19 Status: Orderedfolic acid 1 mg oral tablet See Instructions, TAKE 1 TABLET BY MOUTH ONCE A DAY, # 30 tablet, Refills 1, Maintenance, Instructions Replace Required Details, Route to Pharmacy Electronically, [facility], 175, cm, 06/20/19 12:00:00 EST, Height, 81.2, kg, 02/04/19 1:40:00 E... Start Date: 06/20/19 Status: Orderedfolic acid 1 mg oral tablet 1, tablet, By Mouth, Daily, # 30 tablet, Refills 1, Tot. Refills 0, Maintenance, 05/29/19 17:32:04 EST, Instructions Replace Required Details, Route to Pharmacy Electronically, [facility], 175,cm, 02/06/19 7:59:26 EDT, Height, [...] FOR ANXIETY, # 60 tablet,1 Refills, Acute, [facility], 175, cm, 06/20/19 12:00:00 EST, Height, 81.2, kg, 02/04/19 1:40:00 EDT, Dry Weight Start Date: 07/12/19 Status: Orderedlactulose 10 gm/15 ml oral syrup 30 mL = 20 Gm, By Mouth, 3 times a day, PRN Other, for 30 days, PRN to acheive 3-4 BMs per day, # 3,000 mL, 11 Refills, Acute 06/16/20 12:33:00 EST, 06/22/19 12:33:00 EST, Syrup, [facility], resent from 10/04/17, 30 mL [...] 0 Refills, Maintenance, 08/24/19 18:00:00 EDT, Ointment, [facility], 1 application Topically 3 times [...] 0 Refills, Maintenance, 06/26/19 20:32:00 EST, Tablet, [facility], 175, cm, 06/20/19 12:00:00 EST, Height, 81.2, kg, 02/04/19 1:40:00 EDT, Dry Weight Start Date: 06/26/19 Status: Orderedsertraline 50 mg oral tablet 1 tablet, By Mouth, Daily, TAKE ALONG WITH A 100MG TABLET to equal 150mg daily, # 90 tablet, 0 Refills, Maintenance, 06/22/19 12:32:00 EST, [facility], 175, cm, 06/20/19 12:00:00 EST, Height, 81.2, kg, 02/04/19 1:40:00 EDT, Dry Weight Start Date: 06/22/19 Status: GmtogluIlu-K-Wzyp oral tablet 1 tablet, By Mouth, Daily, # 30 tablet, 11 Refills, Maintenance, 06/16/19 12:42:00 EST, [facility], 30, TAKE 1 TABLET BY [...] TO 2 TABLETS BY MOUTH AT BEDTIME, [facility] Start Date: 01/02/19 Status: OrderedVitamin B1 100 mg oral tablet 1, tablet, By Mouth, Daily, # 90 tablet, Refills 3, Tot. Refills 0, Acute, 06/16/19 12:42:00 EST, Route to Pharmacy Electronically, [facility], 175, cm, 02/06/19 7:59:00 EDT, Height, 81.2, kg, 02/04/19 1:40:00 EDT, Dry Weight Start Date: 06/16/19 Status: OrderedXifaxan 550 mg oral tablet 1 tablet, By Mouth, 2 times a day, # 60 tablet, 0 Refills, Maintenance, 08/14/19 16:54:00 EST, [facility], 175, cm, 06/20/19 12:00:00 EST, Height, [...] Active Vitamin D insufficiency(Confirmed) 08/16/12 Active 1refer [id number] HEP C,b; immune HEP A,3r/o bbsgiukhklhfijjx6tfthuh8vgcsuwcl counseling6? hsypayv5vmd RF ANCA,normal immunofixation,8lumbar puncture November 2011,neg lymenormal IGA neg SSA ,SSBnormal methylmalonic acid homocyseine9 legally blind;[id number] echo November 2014 Vital Signs Most recent to oldest [Reference Range]: 1 Height 175 cm (08/24/19 2:14 PM) Weight 85.9 kg (08/24/19 2:14 PM) Oxygen Saturation [94-100 %] 98 % (08/24/19 2:14 PM) Pulse Rate [55-90 bpm] 93 bpm *H* (08/24/19 2:14 PM) Body Mass Index [18.5-24.99] 28.05 *H* (08/24/19 2:14 PM) Blood Pressure [90-138/55-84 mm Hg] 124/68 mm Hg (08/24/19 2:14 PM) Respiratory Rate [16-30 br/min] 16 br/min (08/24/19 2:14 PM) Temperature [96.8-100.4 DegF] 98.3 DegF (08/24/19 2:14 PM) Mode of Delivery (Oxygen) Room air (08/24/19 2:14 PM) Blood pressure sites Arm, left (08/24/19 2:14 PM) Temperature Route Oral (08/24/19 2:14 PM) Weight Obtained Via Standing scale (08/24/19 2:14 PM) Social History Social History Type Response Smoking Status 10 or more cigarettes (1/2 p ack or more)/day in last 30 days entered on: 02/04/19 Sex
--- OUTSIDE RECORDS SUMMARY | 2022-03-14 03:17 | XMS_ITS | Continuity of Care Document ---
:1975 Author Organization [facility] Address [address] [place] [address]- Care Team Providers Name Role Phone Jany Baig DO Primary Care Physician [place] [facility] [place] 06[place]04/21 [facility] [address] [place] [address]- Allergies, Adverse Reactions, Alerts Substance Reaction Severity Status ibuprofen1 Hx of GI Bleed Active aspirin2 Hx GI Bleed Active Tylenol3 Cirrhosis Active NSAIDs Active 1pt advised not to take NSAIDs or Tylenol due to underlying liver disease. Also had GI side effects when took too much aspirin in the past.2pt took too much in the past and had GI side gbicgtw5kr advised not to take d/t underlying liver [...] acel (oldterm) 08/02/12 Given 1Result Comment: [04/29/2017] [id number] Note: [id number] Note: 3 [id number] Note: #2 Medications baclofen 10 mg oral tablet 1, tablet, By Mouth, 3 times a day, # 90 tablet, Refills 0, Route to Pharmacy Electronically, [facility], 174, cm, 02/27/21 15:17:00 EDT, Height, 81, kg, 02/27/21 14:06:00 EDT, Dry Weight Start Date: 05/12/21 Status: Orderedchantix 1mg tablet 1 tablet, By Mouth, 2 times a day, # 56 tablet, 0 Refills, Acute, 11/22/20 16:13:00 EDT, [facility], 178, cm, 11/12/20 15:32:00 EDT, Height, 84.9, kg, 08/31/20 1:07:00 EDT, Dry Weight Start Date: 11/22/20 Status: OrderedCo Q-10 100 mg oral capsule See Instructions, TAKE 1 CAPSULE BY MOUTH FOUR TIMES DAILY, # 120 capsule, 7 Refills, Maintenance, [facility], 178, cm, 10/22/20 13:17:00 EDT, Height, 84.9, kg, 08/31/20 1:07:00 EDT, Dry Weight Start Date: 11/01/20 Status: OrderedCo Q-10 100 mg oral capsule 1 capsule, By Mouth, 4 times a day, # 120 capsule, 11 Refills, Maintenance, 11/21/19 10:36:00 EDT, [facility] #[id number], 175, cm, 08/24/19 14:14:00 EDT, Height, 81.2, kg, 02/04/19 1:40:00 EDT, Dry Weight Start Date: 11/21/19 Stop Date: 11/15/20 Status: Orderedfluticasone 50 mcg/inh nasal spray See Instructions, USE 1 SPRAY INTO EACH NOSTRIL TWICE A DAY, # 16 Gm, 5 Refills, Maintenance, [facility], 30, USE 1 SPRAY INTO EACH NOSTRIL TWICE A DAY, 178, cm, 01/07/21 17:59:00 EDT, Height, 81.4, kg, 12/03/20 13:52:00 EDT, Dry Weight Start Date: 01/17/21 Status: Orderedgabapentin 600 mg oral tablet 1 tablet, By Mouth, 4 times a day, # 120 tablet, 0 Refills, [facility], 174, cm, 02/27/21 15:17:00 EDT, Height, 81, kg, 02/27/21 14:06:00 EDT, Dry Weight Start Date: 05/12/21 Status: OrderedhydrOXYzine hydrochloride 25 mg oral tablet 1 TO 2 TABLETS, By Mouth, 3 times a day, PRN NEEDED FOR ANXIETY (VIAL), # 60 tablet, 5 Refills, Maintenance, 06/02/21 16:17:00 EST, [facility], 174, cm, 02/27/21 15:17:00 EDT, Height, 81, kg, 02/27/21 14:06:00 EDT, Dry Weight Start Date: 06/02/21 Status: OrderedMelatonin 3 mg oral tablet 1 tablet, By Mouth, Daily at bedtime, PRN NEEDED FOR INSOMNIA (PACKAGE IN TRAY), # 60 tablet, 5 Refills, Maintenance, 06/02/21 16:17:00 EST, [facility], 28, 1 tablet By [...] Refills, Maintenance, 10/06/19 15:57:00 EDT, Tablet, [facility], 175, cm, 08/24/19 14:14:00 EDT, Height, 81.2, kg, 02/04/19 1:40:00 EDT, Dry Weight Start Date: 10/06/19 Status: Orderedsertraline 50 mg oral tablet 1 tablet, By Mouth, Daily, TAKE ALONG WITH A 100MG TABLET to equal 150mg daily, # 90 tablet, 1 Refills, Maintenance, 10/06/19 15:57:00 EDT, [facility], 175, cm, 08/24/19 14:14:00 EDT, Height, 81.2, kg, 02/04/19 1:40:00 EDT, Dry Weight Start Date: 10/06/19 Status: Orderedsildenafil 50 mg oral tablet 1 tablet = 50 mg, By Mouth, Daily, PRN erectile dysfunction, 1 hour before sexual activity, # 6 tablet, 5 Refills, Maintenance, 03/11/20 14:37:00 EDT, Tablet, [facility] #[id number], 175, cm, 08/24/19 14:14:00 EDT, Height, 81.2, kg, 02/04/19 1:40:00 EDT,... Start Date: 03/11/20 Status: ByfxgwyAez-A-Dkce oral tablet See Instructions, TAKE 1 TABLET BY MOUTH ONCE A DAY, # 30 tablet, 10 Refills, Maintenance, [facility], 28, TAKE 1 TABLET BY MOUTH ONCE A DAY, 175, cm, 04/02/20 0:35:00 EDT, Height, 100, kg, 04/02/20 0:35:00 EDT, Dry Weight Start Date: 07/18/20 Status: Orderedtranexamic acid 650 mg oral tablet 1 tablet = 650 mg, By Mouth, Daily, # 21 tablet, 0 Refills, Maintenance, 10/22/20 17:52:00 EDT, Tablet, [facility]acy #[id number], Partial [...] Required Details, Route to Pharmacy Electronically, [facility], 174, cm, 02/11/21 12:09:00 EDT, Height, 86.6, kg, ... Start Date: 02/15/21 Status: OrderedVitamin B1 100 mg oral tablet 1, tablet, By Mouth, Daily, # 90 tablet, Refills 2, Tot. Refills 0, Acute, 09/05/20 17:32:00 EDT, Route to Pharmacy Electronically, [facility], 178, cm, 08/31/20 11:25:00 EDT, Height, 84.9, kg,08/31/20 1:07:00 EDT, Dry Weight Start Date: 09/05/20 Status: OrderedXifaxan 550 mg oral tablet 1 tablet, By Mouth, 2 times a day, # 60 tablet, 0 Refills, Maintenance, 04/16/20 14:45:00 EST, [facility]/pharmacy #[id number], 175, cm, 04/02/20 0:35:00 EDT, [...] Active Vitamin D insufficiency(Confirmed) 08/16/12 Active 1refer [id number] HEP C,b; immune HEP A,3r/o qjuzjokgtpkarbjk1odrcxx4jdomlbfb counseling6? bamdgkv6yiz RF ANCA,normal immunofixation,8lumbar puncture November 2011,neg lymenormal IGA neg SSA ,SSBnormal methylmalonic acid homocyseine9 legally blind;uvdqokmbtu75pflcgr echo November 2014 Social History Social History Type Response Smoking Status 10 or more cigarettes (1/2 p ack or more)/day in last 30 days entered on: 02/04/19 Sex Male
--- OUTSIDE RECORDS SUMMARY | 2022-03-14 03:17 | XMS_ITS | Continuity of Care Document ---
:1975 Author Organization [facility] Address [address] [place] [id number]- Care Team Providers Name Role Phone Jany Baig DO Primary Care Physician [facility] Date[facility]s): 12/16/20 - 12/16/[address] [address]- Discharge Disposition: A-D/C Home Attending Physician: Elton Thomas MD Admitting Physician: Elton Thomas MD Referring Physician: Not on Staff, Referring [...] in the past and had GI side [id number] advised not to take d/t underlying liver [...] 08/02/12 Given 1Admin Note: #22Result Comment: [04/29/2017] [id number] Note: [id number] Admin Note: 3 RDINJ Medications baclofen 10 mg oral tablet 1, tablet, By Mouth, 3 times a day, # 90 tablet, Refills 0, Tot. Refills 0, Maintenance, 11/22/20 16:13:00 EDT, Route to Pharmacy Electronically, [facility], 178, cm, 11/12/20 15:32:00 EDT, Height, 84.9, kg, 08/31/20 1:07:00 EDT, Dry Weight Start Date: 11/22/20 Status: Orderedchantix 1mg tablet 1 tablet, By Mouth, 2 times a day, # 56 tablet, 0 Refills, Acute, 11/22/20 16:13:00 EDT, [facility], 178, cm, 11/12/20 15:32:00 EDT, Height, 84.9, kg, 08/31/20 1:07:00 EDT, Dry Weight Start Date: 11/22/20 Status: OrderedCo Q-10 100 mg oral capsule See Instructions, TAKE 1 CAPSULE BY MOUTH FOUR TIMES DAILY, # 120 capsule, 7 Refills, Maintenance, [facility], 178, cm, 10/22/20 13:17:00 EDT, Height, 84.9, kg, 08/31/20 1:07:00 EDT, Dry Weight Start Date: 11/01/20 Status: OrderedCo Q-10 100 mg oral capsule 1 capsule, By Mouth, 4 times a day, # 120 capsule, 11 Refills, Maintenance, 11/21/19 10:36:00 EDT, [facility]/pharmacy #[id number], 175, cm, 08/24/19 14:14:00 EDT, Height, 81.2, kg, 02/04/19 1:40:00 EDT, Dry Weight Start Date: 11/21/19 Stop Date: 11/15/20 Status: Orderedfluticasone 50 mcg/inh nasal spray See Instructions, SPRAY 1 SPRAY INTO EACH NOSTRIL TWICE A DAY, # 16 Gm, 5 Refills, 07/09/20 11:38:00EST, [facility], 30, SPRAY 1 SPRAY INTO EACH NOSTRIL TWICE A DAY, 175, cm, 04/02/20 0:35:00 EDT, Height, 100, kg, 04/02/20 0:35:00 EDT, Dry We... Start Date: 07/09/20 Status: Orderedgabapentin 600 mg oral tablet 1 tablet, By Mouth, 4 times a day, # 120 tablet, 0 Refills, Maintenance, 11/22/20 16:13:00 EDT, [facility], 178, cm, 11/12/20 15:32:00 EDT, Height, 84.9, kg, 08/31/20 1:07:00 EDT, Dry Weight Start Date: 11/22/20 Status: OrderedhydrOXYzine hydrochloride 25 mg oral tablet 1 TO 2 TABLETS, By Mouth, 3 times a day, PRN NEEDED FOR ANXIETY (VIAL), # 60 tablet, 3 Refills, Maintenance, 10/07/20 16:49:00 EDT, [facility], 178, cm, 08/31/20 11:25:00 EDT, Height, 84.9, kg, 08/31/20 1:07:00 EDT, Dry Weight Start Date: 10/07/20 Status: OrderedKeppra 500 mg oral tablet 1 tablet = 500 mg, By Mouth, 2 times a day, # 14 tablet, 0 Refills, Maintenance, 11/01/20 11:59:00 EDT, Tablet, [facility], Partial fill upon patient request if the prescription is for a schedule II opioid drug., 178, cm, 10/22/20 13:17:... Start Date: 11/01/20 Stop Date: 11/08/20 Status: Orderedmelatonin 3 mg oral tablet 1 tablet = 3 mg, By Mouth, Daily at bedtime, PRN for insomnia, # 60 tablet, 4 Refills, Maintenance, 07/18/20 17:30:00 EST, Tablet, [facility], 175, cm, 04/02/20 0:35:00 EDT, Height, 100, kg, 04/02/20 0:35:00 EDT, Dry Weight Start Date: 2/4/21 Status: Orderedpantoprazole 40 mg oral delayed release [...] Maintenance, 10/06/19 15:57:00 EDT, Tablet, [facility], 175, cm, 08/24/19 14:14:00 EDT, Height, 81.2, kg, 02/04/19 1:40:00 EDT, Dry Weight Start Date: 10/06/19 Status: Orderedsertraline 50 mg oral tablet 1 tablet, By Mouth, Daily, TAKE ALONG WITH A 100MG TABLET to equal 150mg daily, # 90 tablet, 1 Refills, Maintenance, 10/06/19 15:57:00 EDT, [facility], 175, cm, 08/24/19 14:14:00 EDT, Height, 81.2, kg, 02/04/19 1:40:00 EDT, Dry Weight Start Date: 10/06/19 Status: Orderedsildenafil 50 mg oral tablet 1 tablet = 50 mg, By Mouth, Daily, PRN erectile dysfunction, 1 hour before sexual activity, # 6 tablet, 5 Refills, Maintenance, 03/11/20 14:37:00 EDT, Tablet, [facility]/pharmacy #[id number], 175, cm, 08/24/19 14:14:00 EDT, Height, 81.2, kg, 02/04/19 1:40:00 EDT,... Start Date: 03/11/20 Status: TsvwnspDnn-M-Ltlj oral tablet See Instructions, TAKE 1 TABLET BY MOUTH ONCE A DAY, # 30 tablet, 10 Refills, [facility], TAKE 1 TABLET BY MOUTH [...] 0 Refills, Maintenance, 10/22/20 17:52:00 EDT, Tablet, [facility]/pharmacy #[id number], Partial fill upon patient request if [...] Details, Route to Pharmacy Electronically, [facility], 178, cm, 10/22/20... Start Date: 11/01/20 Status: OrderedVitamin B1 100 mg oral tablet 1, tablet, By Mouth, Daily, # 90 tablet, Refills 2, Tot. Refills 0, Acute, 09/05/20 17:32:00 EDT, Route to Pharmacy Electronically, [facility], 178, cm, 08/31/20 11:25:00 EDT, Height, 84.9, kg,08/31/20 1:07:00 EDT, Dry Weight Start Date: 09/05/20 Status: OrderedXifaxan 550 mg oral tablet 1 tablet, By Mouth, 2 times a day, # 60 tablet, 0 Refills, Maintenance, 04/16/20 14:45:00 EST, [facility]/pharmacy #[id number], 175, cm, 04/02/20 0:35:00 EDT, Height, [...] Active Vitamin D insufficiency(Confirmed) 08/16/12 Active 1refer [id number] HEP C,b; immune HEP A,3r/o iyqddypmgqnzriqv8xlygge0xsxeqqim counseling6? [id number] RF ANCA,normal immunofixation,8lumbar puncture November 2011,neg lymenormal IGA neg SSA ,SSBnormal methylmalonic acid homocyseine9 legally blind;[id number] echo November 2014 Vital Signs Most recent to oldest [Reference 1 2 3 Range]: Oxygen Saturation [94-100 %] 97 % 97 % 97 % (12/16/20 2:22 PM) (12/16/20 12:01 PM) (12/16/20 10:06 AM) Pulse Rate [55-90 bpm] 80 bpm 80 bpm 79 bpm (12/16/20 2:22 PM) (12/16/20 12:13 PM) (12/16/20 12:01 PM) Blood Pressure [90-138/55-84 mm 128/74 mm Hg 114/66 mm Hg 114/66 mm Hg Hg] (12/16/20 2:22 PM) (12/16/20 12:13 PM) (12/16/20 12:01 PM) Respiratory Rate [16-30 br/min] 15 br/min 16 br/min 16 br/min *L* (12/16/20 12:13 PM) (12/16/20 12:01 PM) (12/16/20 2:22 PM) Temperature [96.8-100.4 DegF] 98 DegF (12/16/20 6:03 AM) Mode of Delivery (Oxygen) Room air Room air Room a ir (12/16/20 2:22 PM) (12/16/20 12:01 PM) (12/16/20 10:06 AM) Blood pressure sites Arm, left (12/16/20 4:34 AM) Temperature Route Oral (12/16/20 6:03 AM) Social History Social History Type Response Smoking Status 10 or more cigarettes (1/2 p ack or more)/day in last 30 days entered on: 02/04/19 Sex
--- OUTSIDE RECORDS SUMMARY | 2022-03-14 03:17 | XMS_ITS | Continuity of Care Document ---
:1975 Author Organization [facility] Address [address] [place] [address]- Care Team Providers Name Role Phone Jany Baig DO Primary Care Physician [facility] Date[facility]s): 03/11/21 - 04/10/21 [facility] [address] [place] [address]- Allergies, Adverse Reactions, Alerts Substance Reaction Severity Status ibuprofen1 Hx of GI Bleed Active aspirin2 Hx GI Bleed Active Tylenol3 Cirrhosis Active NSAIDs Active 1pt advised not to take NSAIDs or Tylenol due to underlying liver disease. Also had GI side effects when took too much aspirin in the past.2pt took too much in the past and had GI side [id number] advised not to take d/t underlying liver [...] acel (oldterm) 08/02/12 Given 1Result Comment: [04/29/2017] [id number] Note: [id number] Note: 3 [id number] Note: #2 Medications baclofen 10 mg oral tablet 1, tablet, By Mouth, 3 times a day, # 90 tablet, Refills 0, Route to Pharmacy Electronically, [facility], 174, cm, 02/27/21 15:17:00 EDT, Height, 81, kg, 02/27/21 14:06:00 EDT, Dry Weight Start Date: 03/18/21 Status: Orderedchantix 1mg tablet 1 tablet, By Mouth, 2 times a day, # 56 tablet, 0 Refills, Acute, 11/22/20 16:13:00 EDT, [facility], 178, cm, 11/12/20 15:32:00 EDT, Height, 84.9, kg, 08/31/20 1:07:00 EDT, Dry Weight Start Date: 11/22/20 Status: OrderedCo Q-10 100 mg oral capsule See Instructions, TAKE 1 CAPSULE BY MOUTH FOUR TIMES DAILY, # 120 capsule, 7 Refills, Maintenance, [facility], 178, cm, 10/22/20 13:17:00 EDT, Height, 84.9, kg, 08/31/20 1:07:00 EDT, Dry Weight Start Date: 11/01/20 Status: OrderedCo Q-10 100 mg oral capsule 1 capsule, By Mouth, 4 times a day, # 120 capsule, 11 Refills, Maintenance, 11/21/19 10:36:00 EDT, [facility]/pharmacy #[id number], 175, cm, 08/24/19 14:14:00 EDT, Height, 81.2, kg, 02/04/19 1:40:00 EDT, Dry Weight Start Date: 11/21/19 Stop Date: 11/15/20 Status: Orderedfluticasone 50 mcg/inh nasal spray See Instructions, USE 1 SPRAY INTO EACH NOSTRIL TWICE A DAY, # 16 Gm, 5 Refills, Maintenance, [facility], 30, USE 1 SPRAY INTO EACH NOSTRIL TWICE A DAY, 178, cm, 01/07/21 17:59:00 EDT, Height, 81.4, kg, 12/03/20 13:52:00 EDT, Dry Weight Start Date: 01/17/21 Status: Orderedgabapentin 600 mg oral tablet 1 tablet, By Mouth, 4 times a day, # 120 tablet, 0 Refills, [facility], 174, cm, 02/27/21 15:17:00 EDT, Height, 81, kg, 02/27/21 14:06:00 EDT, Dry Weight Start Date: 03/18/21 Status: OrderedhydrOXYzine hydrochloride 25 mg oral tablet 1 TO 2 TABLETS, By Mouth, 3 times a day, PRN NEEDED FOR ANXIETY (VIAL), # 60 tablet, 2 Refills, [facility], 174, cm, 02/11/21 12:09:00 EDT, Height, 86.6, kg, 02/06/21 14:20:00 EDT, Dry Weight Start Date: 02/19/21 Status: Orderedmelatonin 3 mg oral tablet 1 tablet = 3 mg, By Mouth, Daily at bedtime, PRN for insomnia, # 60 tablet, 4 Refills, Maintenance, 07/18/20 17:30:00 EST, Tablet, [facility], 175, cm, 04/02/20 0:35:00 EDT, [...] Maintenance, 10/06/19 15:57:00 EDT, Tablet, [facility], 175, cm, 08/24/19 14:14:00 EDT, Height, 81.2, kg, 02/04/19 1:40:00 EDT, Dry Weight Start Date: 10/06/19 Status: Orderedsertraline 50 mg oral tablet 1 tablet, By Mouth, Daily, TAKE ALONG WITH A 100MG TABLET to equal 150mg daily, # 90 tablet, 1 Refills, Maintenance, 10/06/19 15:57:00 EDT, [facility], 175, cm, 08/24/19 14:14:00 EDT, Height, 81.2, kg, 02/04/19 1:40:00 EDT, Dry Weight Start Date: 10/06/19 Status: Orderedsildenafil 50 mg oral tablet 1 tablet = 50 mg, By Mouth, Daily, PRN erectile dysfunction, 1 hour before sexual activity, # 6 tablet, 5 Refills, Maintenance, 03/11/20 14:37:00 EDT, Tablet, [facility]/pharmacy #[id number], 175, cm, 08/24/19 14:14:00 EDT, Height, 81.2, kg, 02/04/19 1:40:00 EDT,... Start Date: 03/11/20 Status: EkyspecCfc-G-Agyh oral tablet See Instructions, TAKE 1 TABLET BY MOUTH ONCE A DAY, # 30 tablet, 10 Refills, [facility], [facility], TAKE 1 TABLET BY MOUTH ONCE A DAY, 175, cm, 04/02/20 0:35:00 EDT, Height, 100, kg, 04/02/20 0:35:00 EDT, Dry Weight Start Date: 07/18/20 Status: Orderedtranexamic acid 650 mg oral tablet 1 tablet = 650 mg, By Mouth, Daily, # 21 tablet, 0 Refills, Maintenance, 10/22/20 17:52:00 EDT, Tablet, [facility]/pharmacy #[id number], Partial fill upon patient [...] Route to Pharmacy Electronically, [facility], 174, cm, 02/11/21 12:09:00 EDT, Height, 86.6, kg, ... Start Date: 02/15/21 Status: OrderedVitamin B1 100 mg oral tablet 1, tablet, By Mouth, Daily, # 90 tablet, Refills 2, Tot. Refills 0, Acute, 09/05/20 17:32:00 EDT, Route to Pharmacy Electronically, [facility], 178, cm, 08/31/20 11:25:00 EDT, Height, 84.9, kg,08/31/20 1:07:00 EDT, Dry Weight Start Date: 09/05/20 Status: OrderedXifaxan 550 mg oral tablet 1 tablet, By Mouth, 2 times a day, # 60 tablet, 0 Refills, Maintenance, 04/16/20 14:45:00 EST, [facility]/pharmacy #[id number], 175, cm, 04/02/20 0:35:00 [...] Active Vitamin D insufficiency(Confirmed) 08/16/12 Active 1refer [id number] HEP C,b; immune HEP A,3r/o eyrpiyhstkcetosl4igipjw7nlwdtznn counseling6? xlxdqst0rew RF ANCA,normal immunofixation,8lumbar puncture November 2011,neg lymenormal IGA neg SSA ,SSBnormal methylmalonic acid homocyseine9 legally blind;[id number] echo November 2014 Social History Social History Type Response Smoking Status 10 or more cigarettes (1/2 p ack or more)/day in last 30 days entered on: 02/04/19 Sex
--- OUTSIDE RECORDS SUMMARY | 2022-03-14 03:17 | XMS_ITS | Continuity of Care Document ---
:1975 Author Organization [facility] Address [address] [place] [address]- Care Team Providers Name Role Phone Jany Baig DO Primary Care Physician [facility] Date[facility]s): 06/24/21 - 07/24/21 [facility] [address] [place] [address]- Allergies, Adverse Reactions, Alerts Substance Reaction Severity Status ibuprofen1 Hx of GI Bleed Active aspirin2 Hx GI Bleed Active Tylenol3 Cirrhosis Active NSAIDs Active 1pt advised not to take NSAIDs or Tylenol due to underlying liver disease. Also had GI side effects when took too much aspirin in the past.2pt took too much in the past and had GI side [id number] advised not to take d/t underlying liver [...] acel (oldterm) 08/02/12 Given 1Result Comment: [04/29/2017] [id number] Note: [id number] Note: 3 [id number] Note: #2 Medications baclofen 10 mg oral tablet 1, tablet, By Mouth, 3 times a day, # 90 tablet, Refills 0, Route to Pharmacy Electronically, [facility], 174, cm, 02/27/21 15:17:00 EDT, Height, 81, kg, 02/27/21 14:06:00 EDT, Dry Weight Start Date: 07/08/21 Status: Orderedchantix 1mg tablet 1 tablet, By Mouth, 2 times a day, # 56 tablet, 0 Refills, Acute, 11/22/20 16:13:00 EDT, [facility], 178, cm, 11/12/20 15:32:00 EDT, Height, 84.9, kg, 08/31/20 1:07:00 EDT, Dry Weight Start Date: 11/22/20 Status: OrderedCo Q-10 100 mg oral capsule 1 capsule, By Mouth, 4 times a day, # 120 capsule, 6 Refills, [facility], 174, cm, 02/27/21 15:17:00 EDT, Height, 81, kg, 02/27/21 14:06:00 EDT, Dry Weight Start Date: 07/08/21 Status: Orderedfluticasone 50 mcg/inh nasal spray See Instructions, USE 1 SPRAY INTO EACH NOSTRIL TWICE A DAY, # 16 Gm, 5 Refills, Maintenance, [facility], 30, USE 1 SPRAY INTO EACH NOSTRIL TWICE A DAY, 178, cm, 01/07/21 17:59:00 EDT, Height, 81.4, kg, 12/03/20 13:52:00 EDT, Dry Weight Start Date: 01/17/21 Status: Orderedgabapentin 600 mg oral tablet 1 tablet, By Mouth, 4 times a day, # 120 tablet, 0 Refills, [facility], 174, cm, 02/27/21 15:17:00 EDT, Height, 81, kg, 02/27/21 14:06:00 EDT, Dry Weight Start Date: 07/08/21 Status: OrderedhydrOXYzine hydrochloride 25 mg oral tablet 1 TO 2 TABLETS, By Mouth, 3 times a day, PRN NEEDED FOR ANXIETY (VIAL), # 60 tablet, 0 Refills, [facility], 174, cm, 02/27/21 15:17:00 EDT, Height, 81, kg, 02/27/21 14:06:00 EDT, Dry Weight Start Date: 07/08/21 Status: Orderedlactulose 10 gm/15 ml oral syrup See Instructions, TAKE 30ML BY MOUTH THREE TIMES DAILY NEEDED TO ACHEIVE 3-4 BOWL MOVEMENTS PER DAY, # 3,000 mL, 10 Refills, [facility], 30, TAKE 30ML BY MOUTH THREE TIMES DAILY NEEDED TOACHEIVE 3-4 BOWL MOVEMENTS PER DAY, 174, cm, 02/12... Start Date: 07/02/21 Status: OrderedMelatonin 3 mg oral tablet 1 tablet, By Mouth, Daily at bedtime, PRN NEEDED FOR INSOMNIA (PACKAGE IN TRAY), # 60 tablet, 5 Refills, Maintenance, 06/02/21 16:17:00 EST, [facility], 28, 1 tablet By [...] Refills, Maintenance, 10/06/19 15:57:00 EDT, Tablet, [facility], 175, cm, 08/24/19 14:14:00 EDT, Height, 81.2, kg, 02/04/19 1:40:00 EDT, Dry Weight Start Date: 10/06/19 Status: Orderedsertraline 50 mg oral tablet 1 tablet, By Mouth, Daily, TAKE ALONG WITH A 100MG TABLET to equal 150mg daily, # 90 tablet, 1 Refills, Maintenance, 10/06/19 15:57:00 EDT, [facility], 175, cm, 08/24/19 14:14:00 [...] 02/04/19 1:40:00 EDT,... Start Date: 03/11/20 Status: OptknwtGru-P-Uiuc oral tablet 1 tablet, By Mouth, Daily, # 90 tablet, 9 Refills, [facility], 28, TAKE 1 TABLET BY MOUTH ONCE A DAY, 174, cm, 07/14/21 8:16:00 EST, Height, 81, kg, 02/27/21 14:06:00 EDT, Dry Weight Start Date: 07/22/21 Status: Orderedtranexamic acid 650 mg oral tablet 1 tablet = 650 mg, By Mouth, Daily, # 21 tablet, 0 Refills, Maintenance, 10/22/20 17:52:00 EDT, Tablet, [facility]/pharmacy #[id number], Partial fill upon patient request if the prescription is for a schedule II opioid drug., 178, cm, 10/22/20 13:17:00 EDT, Height... Start Date: 10/22/20 Status: OrderedtraZODone 50 mg oral tablet See Instructions, TAKE 1 TO 2 TABLETS BY MOUTH AT BEDTIME (ONE DOSE IN VIAL), # 60 tablet, Refills 0, Instructions Replace Required Details, Route to Pharmacy Electronically, [facility], 174, cm, 02/27/21 15:17:00 EDT, Height, 81, kg, 02/27/21... Start Date: 07/10/21 Status: OrderedtraZODone 50 mg oral tablet See Instructions, TAKE 1 TO 2 TABLETS BY MOUTH AT BEDTIME (ONE DOSE IN VIAL), # 60 tablet, Refills 5, Instructions Replace Required Details, Route to Pharmacy Electronically, [facility], 174, cm, 02/11/21 12:09:00 EDT, Height, 86.6, kg, ... Start Date: 02/15/21 Status: OrderedVitamin B1 100 mg oral tablet 1, tablet, By Mouth, Daily, # 90 tablet, Refills 1, Route to Pharmacy Electronically, [facility], 174, cm, 02/27/21 15:17:00 [...] Active Vitamin D insufficiency(Confirmed) 08/16/12 Active 1refer gepvc7lgb HEP C,b; immune HEP A,3r/o wqcdhxljnaqpjijj7stuyaw1jjwesdxn counseling6? cddaowi5hwh RF ANCA,normal immunofixation,8lumbar puncture November 2011,neg lymenormal IGA neg SSA ,SSBnormal methylmalonic acid homocyseine9 legally blind;[id number] echo November 2014 Social History Social History Type Response Smoking Status 10 or more cigarettes (1/2 p ack or more)/day in last 30 days entered on: 02/04/19 Sex Male
--- OUTSIDE RECORDS SUMMARY | 2022-03-14 03:17 | XMS_ITS | Continuity of Care Document ---
:1975 Author Organization [facility] Address [address] [place] [address]- Care Team Providers Name Role Phone Jany Baig DO Primary Care Physician Encounter [facility] Date(s): 12/26/21 - 01/02/22 [facility] [address] [place] [address]- Attending Physician: Jany Baig DO Allergies, Adverse [...] in the past and had GI side [id number] advised not to take d/t underlying liver [...] acel (oldterm) 08/02/12 Given 1Result Comment: [04/29/2017] [id number] Note: [id number] Note: 3 [id number] Note: #2 Medications acetaminophen 500 mg oral tablet See Instructions, PRN for pain, 1 tablet By Mouth up to 4 times a day, MAX 2 Gm per day, # 50 tablet, 1 Refills, Maintenance, 12/26/21 9:17:00 EDT, Tablet, [facility], Partial fill upon patientrequest if the prescription is for a schedule II... Start Date: 12/26/21 Status: OrderedamLODIPine 5 mg oral tablet 5 mg, 1, tablet, By Mouth, Daily, # 30 tablet, Refills 5, Tot. Refills 5, Maintenance, 10/21/21 10:15:00 EDT, Route to Pharmacy Electronically, [facility], Partial fill upon patient request if the prescription is for a schedule II opioid drug.... Start Date: 10/21/21 Status: OrderedCo Q-10 100 mg oral capsule 1 capsule, By Mouth, 4 times a day, # 120 capsule, 6 Refills, [facility], 174, cm, 02/27/21 15:17:00 EDT, Height, 81, kg, 02/27/21 14:06:00 EDT, Dry Weight Start Date: 07/08/21 Status: Orderedfluticasone 50 mcg/inh nasal spray See Instructions, USE 1 SPRAY INTO EACH NOSTRIL TWICE A DAY, # 16 Gm, 5 Refills, [facility],30, USE 1 SPRAY INTO EACH NOSTRIL TWICE A DAY, 174, cm, 07/14/21 8:16:00 EST, Height, 81, kg, 02/27/21 14:06:00 EDT, Dry Weight Start Date: 08/04/21 Status: Orderedfolic acid 1 mg oral tablet 1 mg, 1, tablet, By Mouth, Daily, # 90 tablet, Refills 4, Tot. Refills 4, Maintenance, 10/27/21 10:40:00 EDT, Route to Pharmacy Electronically, [facility], Partial fill upon patient request if the prescription is for a schedule II opioid drug.... Start Date: 10/27/21 Stop Date: 01/20/23 Status: Orderedfurosemide 40 mg oral tablet See Instructions, TAKE 1 TABLET BY MOUTH TWICE A DAY, # 60 tablet, Refills 5, Instructions Replace Required Details, Route to Pharmacy Electronically, [facility], 170, cm, 11/12/21 10:02:00 EDT, Height, 78, kg, 11/04/21 12:03:00 EDT, Dry Weight Start Date: 11/25/21 Status: OrderedhydrOXYzine hydrochloride 25 mg oral tablet 1 TO 2 TABLETS, By Mouth, 3 times a day, PRN NEEDED FOR ANXIETY (VIAL), # 60 tablet, 0 Refills, [facility], 170, cm, 11/12/21 10:02:00 EDT, Height, 78, kg, 11/04/21 12:03:00 EDT, Dry Weight Start Date: 12/24/21 Status: Orderedlactulose 10 gm/15 ml oral syrup See Instructions, TAKE 30ML BY MOUTH THREE TIMES DAILY NEEDED TO ACHEIVE 3-4 BOWL MOVEMENTS PER DAY, # 3,000 mL, 10 Refills, [facility], 30, TAKE 30ML BY MOUTH THREE TIMES DAILY NEEDED TOACHEIVE 3-4 BOWL MOVEMENTS PER DAY, 174, cm, 02/12... Start Date: 07/02/21 Status: Orderedlidocaine 0.5% topical gel 1 application, Topically, 3 times a day, # 120 Gm, 0 Refills, Acute 12/30/22 17:23:00 EDT, 12/30/21 17:23:00 EDT, Gel, [facility], Partial fill upon patient request if the prescription is for aschedule II opioid drug., 1 application Topically... Start Date: 12/30/21 Stop Date: 12/30/22 Status: OrderedLidoderm 5% film 1 patch, Topically, Daily, remove patches after 12 hours NSAIDS contraindicated High dose tylenol contraindicated, # 30 patch, 5 Refills, Maintenance, 12/26/21 9:33:00 EDT, [facility], Partial fill upon patient request if the prescription i... Start Date: 12/26/21 Status: Orderedmagnesium oxide 400 mg oral tablet 1 tablet, By Mouth, 2 times a day, # 60 tablet, 1 Refills, [facility], 170, cm, 11/12/21 10:02:00 EDT, Height, 78, kg, 11/04/21 12:03:00 EDT, Dry Weight Start Date: 11/26/21 Status: OrderedMelatonin 3 mg oral tablet 1 tablet, By Mouth, Daily at bedtime, PRN NEEDED FOR INSOMNIA (PACKAGE IN TRAY), # 60 tablet, 5 Refills, Maintenance, 06/02/21 16:17:00 EST, [facility], 28, 1 tablet By Mouth [...] Refills, Maintenance, 12/29/21 15:50:00 EDT, ER Tablet, [facility]/pharmacy #[id number], Partial fill upon patient [...] EDT, Route to Pharmacy Electronically, [facility], Partialfill upon patient request if the prescription is... Start Date: 10/22/21 Stop Date: 01/15/23 Status: EceqtniGnk-S-Uwpm oral tablet 1 tablet, By Mouth, Daily, # 90 tablet, 9 Refills, [facility], 28, TAKE 1 TABLET BY [...] Details, Route to Pharmacy Electronically, [facility], 170, cm,... Start Date: 12/26/21 Status: OrderedVitamin B1 100 mg oral tablet 1, tablet, By Mouth, Daily, # 90 tablet, Refills 0, Route to Pharmacy Electronically, [facility], 170, cm, 11/12/21 10:02:00 EDT, Height, 78, kg, 11/04/21 12:03:00 EDT, Dry Weight Start Date: 12/24/21 Status: OrderedXifaxan 550 mg oral tablet 1 tablet, By Mouth, 2 times a day, # 60 tablet, 0 Refills, [facility], 170, cm, 11/12/21 10:02:00 EDT, [...] Active Vitamin D insufficiency(Confirmed) 08/16/12 Active 1refer [id number] HEP C,b; immune HEP A,3r/o wahwuuhbukziorld8fmuryy1hxbtsspq counseling6? uycxldj9xwe RF ANCA,normal immunofixation,8lumbar puncture November 2011,neg lymenormal IGA neg SSA ,SSBnormal methylmalonic acid homocyseine9 legally blind;kmxrbmkyfl64ydrtzd echo November 2014 Vital Signs Most recent to oldest [Reference Range]: 1 Height 170 cm (12/26/21 8:51 AM) Weight 78.1 kg (12/26/21 8:51 AM) Oxygen Saturation [94-100 %] 99 % (12/26/21 8:51 AM) Pulse Rate [55-90 bpm] 93 bpm *H* (12/26/21 8:51 AM) Body Mass Index [18.5-24.99] 27.02 *H* (12/26/21 8:51 AM) Blood Pressure [90-138/55-84 mm Hg] 124/82 mm Hg (12/26/21 8:51 AM) Mode of Delivery (Oxygen) Room air (12/26/21 8:51 AM) Weight Obtained Via Standing scale (12/26/21 8:51 AM) Social History Social History Type Response Smoking Status 10 or more cigarettes (1/2 p ack or more)/day in last 30 days entered on: 02/04/19 Sex
--- OUTSIDE RECORDS SUMMARY | 2022-03-14 03:17 | XMS_ITS | Continuity of Care Document ---
:1975 Author Organization [facility] Address [address] [place] [address]- Care Team Providers Name Role Phone Jany Baig DO Primary Care Physician Encounter [facility] Date(s): 11/12/21 - 11/19/21 [facility] [address] [place], [place] [address] Attending Physician: Donna Meredith DO Allergies, Adverse Reactions, Alerts Substance Reaction Severity Status ibuprofen1 Hx of GI Bleed Active aspirin2 Hx GI Bleed Active Tylenol3 Cirrhosis Active NSAIDs Active 1pt advised not to take NSAIDs or Tylenol due to underlying liver disease. Also had GI side effects when took too much aspirin in the past.2pt took too much in the past and had GI side [id number] advised not to take d/t underlying liver [...] acel (oldterm) 08/02/12 Given 1Result Comment: [04/29/2017] [id number] Note: [id number] Note: 3 [id number] Note: #2 Medications amLODIPine 5 mg oral tablet 5 mg, 1, tablet, By Mouth, Daily, # 30 tablet, Refills 5, Tot. Refills 5, Maintenance, 10/21/21 10:15:00 EDT, Route to Pharmacy Electronically, [facility], Partial fill upon patient request if the prescription is for a schedule II opioid drug.... Start Date: 10/21/21 Status: OrderedCo Q-10 100 mg oral capsule 1 capsule, By Mouth, 4 times a day, # 120 capsule, 6 Refills, [facility], 174, cm, 02/27/21 15:17:00 EDT, Height, 81, kg, 02/27/21 14:06:00 EDT, Dry Weight Start Date: 07/08/21 Status: Orderedfluticasone 50 mcg/inh nasal spray See Instructions, USE 1 SPRAY INTO EACH NOSTRIL TWICE A DAY, # 16 Gm, 5 Refills, [facility],30, USE 1 SPRAY INTO EACH NOSTRIL TWICE A DAY, 174, cm, 07/14/21 8:16:00 EST, Height, 81, kg, 02/27/21 14:06:00 EDT, Dry Weight Start Date: 08/04/21 Status: Orderedfolic acid 1 mg oral tablet 1 mg, 1, tablet, By Mouth, Daily, # 90 tablet, Refills 4, Tot. Refills 4, Maintenance, 10/27/21 10:40:00 EDT, Route to Pharmacy Electronically, [facility], Partial fill upon patient request if the prescription is for a schedule II opioid drug.... Start Date: 10/27/21 Stop Date: 01/20/23 Status: Orderedgabapentin 300 mg oral capsule 300 mg, 1, capsule, By Mouth, Daily at bedtime, note dose change, # 90 capsule, Refills 4, Tot. Refills 4, Maintenance, 10/27/21 10:39:00 EDT, Route to Pharmacy Electronically, [facility], Partial fill upon patient request if the prescription... Start Date: 10/27/21 Stop Date: 01/20/23 Status: OrderedhydrOXYzine hydrochloride 25 mg oral tablet 1 TO 2 TABLETS, By Mouth, 3 times a day, PRN NEEDED FOR ANXIETY (VIAL), # 60 tablet, 0 Refills, [facility], 175, cm, 10/27/21 10:11:00 EDT, Height, 87, kg, 09/27/21 21:30:00 EDT, Dry Weight Start Date: 10/29/21 Status: Orderedlactulose 10 gm/15 ml oral syrup See Instructions, TAKE 30ML BY MOUTH THREE TIMES DAILY NEEDED TO ACHEIVE 3-4 BOWL MOVEMENTS PER DAY, # 3,000 mL, 10 Refills, [facility], 30, TAKE 30ML BY MOUTH THREE TIMES DAILY NEEDED TOACHEIVE 3-4 BOWL MOVEMENTS PER DAY, 174, cm, 02/12... Start Date: 07/02/21 Status: OrderedLasix 40 mg oral tablet 40 mg, 1, tablet, By Mouth, 2 times a day, # 60 tablet, Refills 1, Tot. Refills 1, Maintenance, 10/21/21 10:15:00 EDT, [facility], Partial fill upon patient request if the prescription is for a schedule II opi... Start Date: 10/21/21 Stop Date: 12/20/21 Status: Orderedmagnesium oxide 400 mg oral tablet 1 tablet, By Mouth, 2 times a day, # 60 tablet, 0 Refills, [facility], 175, cm, 10/27/21 10:11:00 EDT, Height, 87, kg, 09/27/21 21:30:00 EDT, Dry Weight Start Date: 10/29/21 Status: OrderedMelatonin 3 mg oral tablet 1 tablet, By Mouth, Daily at bedtime, PRN NEEDED FOR INSOMNIA (PACKAGE IN TRAY), # 60 tablet, 5 Refills, Maintenance, 06/02/21 16:17:00 EST, [facility], 28, 1 tablet By Mouth [...] 10/22/21 11:42:00 EDT, Route to Pharmacy Electronically, [facility], Partialfill upon patient request if the prescription is... Start Date: 10/22/21 Stop Date: 01/15/23 Status: RwbmpksAfm-Q-Vadl oral tablet 1 tablet, By Mouth, Daily, # 90 tablet, 9 Refills, [facility], 28, TAKE 1 TABLET BY MOUTH ONCE A DAY, 174, cm, 07/14/21 8:16:00 EST, Height, 81, kg, 02/27/21 14:06:00 EDT, Dry Weight Start Date: 07/22/21 Status: OrderedtraZODone 50 mg oral tablet See Instructions, TAKE 1 TO 2 TABLETS BY MOUTH AT BEDTIME (ONE DOSE IN VIAL), # 60 tablet, Refills 0, Instructions Replace Required Details, Route to Pharmacy Electronically, [facility], 175, cm, 10/27/21 10:11:00 EDT, Height, 87, kg, 09/27/21... Start Date: 10/29/21 Status: OrderedVitamin B1 100 mg oral tablet 1, tablet, By Mouth, Daily, # 90 tablet, Refills 1, Route to Pharmacy Electronically, [facility], 174, cm, 02/27/21 15:17:00 EDT, Height, 81, kg, 02/27/21 14:06:00 EDT, Dry Weight Start Date: 06/16/21 Status: OrderedXifaxan 550 mg oral tablet 1 tablet, By Mouth, 2 times a day, # 60 tablet, 1 Refills, [facility], 170, cm, 11/05/21 11:11:00 EDT, Height, [...] Active Vitamin D insufficiency(Confirmed) 08/16/12 Active 1refer [id number] HEP C,b; immune HEP A,3r/o arxocxswogwjumkz7lijexj4vyspbzdo counseling6? vxhirwn8apf RF ANCA,normal immunofixation,8lumbar puncture November 2011,neg lymenormal IGA neg SSA ,SSBnormal methylmalonic acid homocyseine9 legally blind;vmiallcluq84okivvc echo November 2014 Vital Signs Most recent to oldest [Reference Range]: 1 2 Height 170 cm 170 cm (11/12/21 10:02 AM) (11/12/21 9:56 AM) Weight 77.2 kg (11/12/21 9:56 AM) Oxygen Saturation [94-100 %] 99 % 99 % (11/12/21 10:02 AM) (11/12/21 9:56 AM) Pulse Rate [55-90 bpm] 98 bpm 97 bpm *H* *H* (11/12/21 10:02 AM) (11/12/21 9:56 AM) Body Mass Index [18.5-24.99] 26.71 *H* (11/12/21 9:56 AM) Blood Pressure [90-138/55-84 mm Hg] 140/82 mm Hg 145/ 81 mm Hg *H* *H* (11/12/21 10:02 AM) (11/12/21 9:56 AM) Temperature [96.8-100.4 DegF] 97.5 DegF (11/12/21 9:56 AM) Mode of Delivery (Oxygen) Room air (11/12/21 9:56 AM) Blood pressure sites Arm, right Arm, right (11/12/21 10:02 AM) (11/12/21 9:56 AM) Temperature Route Temporal (11/12/21 9:56 AM) Weight Obtained Via Standing scale (11/12/21 9:56 AM) Social History Social History Type Response Smoking Status 10 or more cigarettes (1/2 p ack or more)/day in last 30 days entered on: 02/04/19 Sex
--- OUTSIDE RECORDS SUMMARY | 2022-03-14 03:18 | XMS_ITS | Continuity of Care Document ---
:1975 Author Organization [facility] Address [address] [place] [address]- Care Team Providers Name Role Phone Jany Baig DO Primary Care Physician Encounter [facility] [place] Date(s): 10/07/20 - 11/06/20 [facility] [address] [place] [address]- Allergies, Adverse Reactions, Alerts Substance Reaction Severity Status ibuprofen1 Hx of GI Bleed Active aspirin2 Hx GI Bleed Active Tylenol3 Cirrhosis Active NSAIDs Active 1pt advised not to take NSAIDs or Tylenol due to underlying liver disease. Also had GI side effects when took too much aspirin in the past.2pt took too much in the past and had GI side [id number] advised not to take d/t underlying liver [...] 08/02/12 Given 1Admin Note: #22Result Comment: [04/29/2017] [id number] Note: [id number] Admin Note: 3 RDINJ Medications baclofen 10 mg oral tablet 1, tablet, By Mouth, 3 times a day, # 90 tablet, Refills 0, Tot. Refills 0, Maintenance, 10/07/20 16:49:00 EDT, Route to Pharmacy Electronically, [facility], 178, cm, 08/31/20 11:25:00 EDT, Height, 84.9, kg, 08/31/20 1:07:00 EDT, Dry Weight Start Date: 10/07/20 Status: Orderedchantix 1mg tablet 1 tablet, By Mouth, 2 times a day, # 56 tablet, 0 Refills, Maintenance, 11/01/20 15:08:00 EDT, [facility], 178, cm, 10/22/20 13:17:00 EDT, Height, 84.9, kg, 08/31/20 1:07:00 EDT, Dry Weight Start Date: 11/01/20 Status: OrderedCo Q-10 100 mg oral capsule See Instructions, TAKE 1 CAPSULE BY MOUTH FOUR TIMES DAILY, # 120 capsule, 7 Refills, Maintenance, [facility], 178, cm, 10/22/20 13:17:00 EDT, Height, 84.9, kg, 08/31/20 1:07:00 EDT, Dry Weight Start Date: 11/01/20 Status: OrderedCo Q-10 100 mg oral capsule 1 capsule, By Mouth, 4 times a day, # 120 capsule, 11 Refills, Maintenance, 11/21/19 10:36:00 EDT, [facility]/pharmacy #[id number], 175, cm, 08/24/19 14:14:00 EDT, Height, 81.2, kg, 02/04/19 1:40:00 EDT, Dry Weight Start Date: 11/21/19 Stop Date: 11/15/20 Status: Orderedfluticasone 50 mcg/inh nasal spray See Instructions, SPRAY 1 SPRAY INTO EACH NOSTRIL TWICE A DAY, # 16 Gm, 5 Refills, 07/09/20 11:38:00EST, [facility], 30, SPRAY 1 SPRAY INTO EACH NOSTRIL TWICE A DAY, 175, cm, 04/02/20 0:35:00 EDT, Height, 100, kg, 04/02/20 0:35:00 EDT, Dry We... Start Date: 07/09/20 Status: Orderedgabapentin 600 mg oral tablet 1 tablet, By Mouth, 4 times a day, # 120 tablet, 0 Refills, Maintenance, 10/07/20 16:49:00 EDT, [facility], 178, cm, 08/31/20 11:25:00 EDT, Height, 84.9, kg, 08/31/20 1:07:00 EDT, Dry Weight Start Date: 10/07/20 Status: OrderedhydrOXYzine hydrochloride 25 mg oral tablet 1 TO 2 TABLETS, By Mouth, 3 times a day, PRN NEEDED FOR ANXIETY (VIAL), # 60 tablet, 3 Refills, Maintenance, 10/07/20 16:49:00 EDT, [facility], 178, cm, 08/31/20 11:25:00 EDT, Height, 84.9, kg, 08/31/20 1:07:00 EDT, Dry Weight Start Date: 10/07/20 Status: OrderedKeppra 500 mg oral tablet 1 tablet = 500 mg, By Mouth, 2 times a day, # 14 tablet, 0 Refills, Maintenance, 11/01/20 11:59:00 EDT, Tablet, [facility], Partial fill upon patient [...] 11/25/20 16:37:00 EDT, 12/01/19 16:37:00 EDT, Syrup, [facility], re sent from 10/04/17, 30... Start Date: 12/01/19 Stop Date: 11/25/20 Status: Orderedmelatonin 3 mg oral tablet 1 tablet = 3 mg, By Mouth, Daily at bedtime, PRN for insomnia, # 60 tablet, 4 Refills, Maintenance, 07/18/20 17:30:00 EST, Tablet, [facility], 175, cm, 04/02/20 0:35:00 EDT, [...] 1 Refills, Maintenance, 10/06/19 15:57:00 EDT, Tablet, [facility], 175, cm, 08/24/19 14:14:00 EDT, Height, 81.2, kg, 02/04/19 1:40:00 EDT, Dry Weight Start Date: 10/06/19 Status: Orderedsertraline 50 mg oral tablet 1 tablet, By Mouth, Daily, TAKE ALONG WITH A 100MG TABLET to equal 150mg daily, # 90 tablet, 1 Refills, Maintenance, 10/06/19 15:57:00 EDT, [facility], 175, cm, 08/24/19 14:14:00 EDT, [...] 02/04/19 1:40:00 EDT,... Start Date: 03/11/20 Status: WtwregbTws-V-Mnqt oral tablet See Instructions, TAKE 1 TABLET BY MOUTH ONCE A DAY, # 30 tablet, 10 Refills, Maintenance, [facility], 28, TAKE 1 TABLET BY MOUTH ONCE [...] Replace Required Details, Route to Pharmacy Electronically, [facility], 178, cm, 10/22/20... Start Date: 11/01/20 Status: OrderedVitamin B1 100 mg oral tablet 1, tablet, By Mouth, Daily, # 90 tablet, Refills 2, Tot. Refills 0, Acute, 09/05/20 17:32:00 EDT, Route to Pharmacy Electronically, [facility], 178, cm, 08/31/20 11:25:00 EDT, [...] Active Vitamin D insufficiency(Confirmed) 08/16/12 Active 1refer [id number] HEP C,b; immune HEP A,3r/o wqociusxpxnkvfnr7niaaws6gbjhxrrw counseling6? covevau9lvy RF ANCA,normal immunofixation,8lumbar puncture November 2011,neg lymenormal IGA neg SSA ,SSBnormal methylmalonic acid homocyseine9 legally blind;soczhemweq33dynwqs echo November 2014 Social History Social History Type Response Smoking Status 10 or more cigarettes (1/2 p ack or more)/day in last 30 days entered on: 02/04/19 Sex
--- OUTSIDE RECORDS SUMMARY | 2022-03-14 03:18 | XMS_ITS | Continuity of Care Document ---
:1975 Author Organization [facility] Address [address] [place] [address]- Care Team Providers Name Role Phone Jany Baig DO Primary Care Physician Encounter [facility] Date(s): 05/21/20 - 06/20/20 [facility] [address] [place] [address]- Allergies, Adverse Reactions, Alerts Substance Reaction Severity Status ibuprofen1 Hx of GI Bleed Active aspirin2 Hx GI Bleed Active Tylenol3 Cirrhosis Active NSAIDs Active 1pt advised not to take NSAIDs or Tylenol due to underlying liver disease. Also had GI side effects when took too much aspirin in the past.2pt took too much in the past and had GI side nvyszoi3yv advised not to take d/t underlying liver [...] 08/02/12 Given 1Admin Note: #22Result Comment: [04/29/2017] [id number] Note: [id number] Admin Note: 3 RDINJ Medications baclofen 10 mg oral tablet 10 mg, 1, tablet, By Mouth, 3 times a day, # 90 tablet, Refills 4, Tot. Refills 4, Maintenance, 02/16/20 17:55:00 EDT, Route to Pharmacy Electronically, [facility], 175, cm, 08/24/19 14:14:00 EDT, Height, 81.2, kg, 02/04/19 1:40:00 EDT, Dry We... Start Date: 02/16/20 Stop Date: 07/15/20 Status: Orderedchantix 1mg tablet 1 tablet, By Mouth, 2 times a day, for 12 week(s), # 56 tablet, 0 Refills, Acute, 05/21/20 12:54:00 EST, [facility], 175, cm, 04/02/20 0:35:00 EDT, Height, 100, kg, 04/02/20 0:35:00 EDT, Dry Weight Start Date: 05/21/20 Stop Date: 08/13/20 Status: OrderedCo Q-10 100 mg oral capsule 1 capsule, By Mouth, 4 times a day, # 120 capsule, 11 Refills, Maintenance, 11/21/19 10:36:00 EDT, [facility]/pharmacy #[id number], 175, cm, 08/24/19 14:14:00 EDT, Height, 81.2, kg, 02/04/19 1:40:00 EDT, Dry Weight Start Date: 11/21/19 Stop Date: 11/15/20 Status: OrderedEngerix-B 20 mcg/mL intramuscular suspension = 20 mcg, Intramuscular, Every 30 days, rpt at 1 and 6 months, # 1 mL, 2 Refills, Maintenance, 11/02/19 9:02:00 EDT, Suspension, [facility]/pharmacy #[id number], 175, cm, 08/24/19 14:14:00 EDT, Height, 81.2, kg, 02/04/19 1:40:00 EDT, Dry Weight Start Date: 11/02/19 Status: Orderedfluticasone 50 mcg/inh nasal spray See Instructions, SPRAY 1 SPRAY INTO EACH NOSTRIL TWICE A DAY, # 16 Gm, 5 Refills, 01/26/20 9:52:00 EDT, [facility], 30, SPRAY 1 SPRAY INTO EACH NOSTRIL TWICE A DAY, 175, cm, 08/24/19 14:14:00 EDT, Height, 81.2, kg, 02/04/19 1:40:00 EDT, Dry W... Start Date: 01/26/20 Status: Orderedgabapentin 600 mg oral tablet 1 tablet, By Mouth, 4 times a day, # 120 tablet, 2 Refills, Maintenance, 05/21/20 12:54:00 EST, [facility], 175, cm, 04/02/20 0:35:00 EDT, Height, 100, kg, 04/02/20 0:35:00 EDT, Dry Weight Start Date: 05/21/20 Status: OrderedhydrOXYzine hydrochloride 25 mg oral tablet 1 TO 2 TABLETS, By Mouth, 3 times a day, PRN NEEDED FOR ANXIETY (VIAL), # 60 tablet, 1 Refills, Acute, 05/21/20 12:54:00 EST, [facility], 175, cm, 04/02/20 0:35:00 [...] EDT, 12/01/19 16:37:00 EDT, Syrup, [facility], re sent from 10/04/17, [...] 4 Refills, Maintenance, 10/06/19 16:16:00 EDT, Tablet, [facility], 175, cm, 08/24/19 14:14:00 [...] Gm, 0 Refills, Maintenance, 04/16/20 14:45:00 EST, [facility]/pharmacy #[id number], 8, APPLY TOPICALLY THREE TIMES DAILY [...] Maintenance, 10/06/19 15:57:00 EDT, Tablet, [facility], 175, cm, 08/24/19 14:14:00 EDT, Height, 81.2, kg, 02/04/19 1:40:00 EDT, Dry Weight Start Date: 10/06/19 Status: Orderedsertraline 50 mg oral tablet 1 tablet, By Mouth, Daily, TAKE ALONG WITH A 100MG TABLET to equal 150mg daily, # 90 tablet, 1 Refills, Maintenance, 10/06/19 15:57:00 EDT, [facility], 175, cm, 08/24/19 14:14:00 EDT, Height, 81.2, kg, 02/04/19 1:40:00 EDT, Dry Weight Start Date: 10/06/19 Status: Orderedsildenafil 50 mg oral tablet 1 tablet = 50 mg, By Mouth, Daily, PRN erectile dysfunction, 1 hour before sexual activity, # 6 tablet, 5 Refills, Maintenance, 03/11/20 14:37:00 EDT, Tablet, [facility]/pharmacy #[id number], 175, cm, 08/24/19 14:14:00 EDT, Height, 81.2, kg, 02/04/19 1:40:00 EDT,... Start Date: 03/11/20 Status: PpokexlQel-I-Tdcz oral tablet 1 tablet, By Mouth, Daily, # 90 tablet, 1 Refills, Maintenance, 05/21/20 9:35:00 EST, [facility], 1 tablet By Mouth Daily, 175, [...] 09/27/19 8:51:00 EDT, Route to Pharmacy Electronically, [facility], 175, cm, 08/24/19 14:14:00 EDT, Height, 81.2, kg, 02/04/19 1:40:00 EDT, Dry Weight Start Date: 09/27/19 Status: OrderedXifaxan 550 mg oral tablet 1 tablet, By Mouth, 2 times a day, # 60 tablet, 0 Refills, Maintenance, 04/16/20 14:45:00 EST, [facility]/pharmacy #[id number], 175, cm, 04/02/20 0:35:00 EDT, Height, [...] Active Vitamin D insufficiency(Confirmed) 08/16/12 Active 1refer ltjqn1hmp HEP C,b; immune HEP A,3r/o mmrtudzxlbdtvpxz9urcqwt2ncwybbvh counseling6? jenyjdx7olk RF ANCA,normal immunofixation,8lumbar puncture November 2011,neg lymenormal IGA neg SSA ,SSBnormal methylmalonic acid homocyseine9 legally blind;weijhecivu43ujtqph echo November 2014 Social History Social History Type Response Smoking Status 10 or more cigarettes (1/2 p ack or more)/day in last 30 days entered on: 02/04/19 Sex
--- OUTSIDE RECORDS SUMMARY | 2022-03-14 03:18 | XMS_ITS | Continuity of Care Document ---
:1975 Author Organization [facility] Address [address] [place] [address]- Care Team Providers Name Role Phone Jany Baig DO Primary Care Physician Encounter [facility] Date(s): 05/01/20 - 06/09/[address] [address]- Attending Physician: Cristofer Steiner MD Admitting Physician: [...] in the past and had GI side [id number] advised not to take d/t underlying liver [...] 08/02/12 Given 1Admin Note: #22Result Comment: [04/29/2017] [id number] Note: [email or web address] Admin Note: 3 RDINJ Medications baclofen 10 mg oral tablet 10 mg, 1, tablet, By Mouth, 3 times a day, # 90 tablet, Refills 4, Tot. Refills 4, Maintenance, 02/16/20 17:55:00 EDT, Route to Pharmacy Electronically, [facility], 175, cm, 08/24/19 14:14:00 EDT, Height, 81.2, kg, 02/04/19 1:40:00 EDT, Dry We... Start Date: 02/16/20 Stop Date: 07/15/20 Status: Orderedchantix 1mg tablet 1 tablet, By Mouth, 2 times a day, for 12 week(s), # 56 tablet, 0 Refills, Acute, 05/21/20 12:54:00 EST, [facility], 175, cm, 04/02/20 0:35:00 EDT, Height, [...] 16 Gm, 5 Refills, 01/26/20 9:52:00 EDT, [facility], 30, SPRAY 1 SPRAY INTO EACH NOSTRIL TWICE A DAY, 175, cm, 08/24/19 14:14:00 EDT, Height, 81.2, kg, 02/04/19 1:40:00 EDT, Dry W... Start Date: 01/26/20 Status: Orderedgabapentin 600 mg oral tablet 1 tablet, By Mouth, 4 times a day, # 120 tablet, 2 Refills, Maintenance, 05/21/20 12:54:00 [facility], 175, cm, 04/02/20 0:35:00 EDT, Height, 100, kg, 04/02/20 0:35:00 EDT, Dry Weight Start Date: 05/21/20 Status: OrderedhydrOXYzine hydrochloride 25 mg oral tablet 1 TO 2 TABLETS, By Mouth, 3 times a day, PRN NEEDED FOR ANXIETY (VIAL), # 60 tablet, 1 Refills, Acute, 05/21/20 12:54:00 EST, [facility], 175, cm, 04/02/20 0:35:00 EDT, Height, [...] 11/25/20 16:37:00 EDT, 12/01/19 16:37:00 EDT, Syrup, [facility], re sent from 10/04/17, 30... [...] 4 Refills, Maintenance, 10/06/19 16:16:00 EDT, Tablet, [facility], 175, cm, 08/24/19 14:14:00 EDT, [...] Refills, Maintenance, 04/16/20 14:45:00 EST, [facility]/pharmacy #[id number], 8, APPLY TOPICALLY THREE [...] 1 Refills, Maintenance, 10/06/19 15:57:00 EDT, Tablet, [facility], 175, cm, 08/24/19 14:14:00 EDT, Height, 81.2, kg, 02/04/19 1:40:00 EDT, Dry Weight Start Date: 10/06/19 Status: Orderedsertraline 50 mg oral tablet 1 tablet, By Mouth, Daily, TAKE ALONG WITH A 100MG TABLET to equal 150mg daily, # 90 tablet, 1 Refills, Maintenance, 10/06/19 15:57:00 EDT, [facility], 175, cm, 08/24/19 14:14:00 EDT, [...] 02/04/19 1:40:00 EDT,... Start Date: 03/11/20 Status: WhhrwngMch-T-Ekuk oral tablet 1 tablet, By Mouth, Daily, # 90 tablet, 1 Refills, Maintenance, 05/21/20 9:35:00 EST, [facility], 1 tablet By Mouth Daily, [...] 09/27/19 8:51:00 EDT, Route to Pharmacy Electronically, [facility], 175, cm, 08/24/19 14:14:00 EDT, Height, 81.2, kg, 02/04/19 1:40:00 EDT, Dry Weight Start Date: 09/27/19 Status: OrderedXifaxan 550 mg oral tablet 1 tablet, By Mouth, 2 times a day, # 60 tablet, 0 Refills, Maintenance, 04/16/20 14:45:00 EST, [facility]/pharmacy #[id number], 175, cm, 04/02/20 0:35:00 [...] Active Vitamin D insufficiency(Confirmed) 08/16/12 Active 1refer [id number] HEP C,b; immune HEP A,3r/o yiyxfcmkqjyggpja9wkuxcb7zejnuxac counseling6? qmobize5out RF ANCA,normal immunofixation,8lumbar puncture November 2011,neg lymenormal IGA neg SSA ,SSBnormal methylmalonic acid homocyseine9 legally blind;[id number] echo November 2014 Social History Social History Type Response Smoking Status 10 or more cigarettes (1/2 p ack or more)/day in last 30 days entered on: 02/04/19 Sex
--- OUTSIDE RECORDS SUMMARY | 2022-03-14 03:18 | XMS_ITS | Continuity of Care Document ---
:1975 Author Organization [facility] Address [address] [place] [address]- Care Team Providers Name Role Phone Jany Baig DO Primary Care Physician Encounter [facility] Date(s): 09/30/20 - 10/07/20 [facility] [address] [place] [address]- Attending Physician: Jany Baig DO Allergies, Adverse [...] in the past and had GI side [id number] advised not to take d/t underlying liver [...] 08/02/12 Given 1Admin Note: #22Result Comment: [04/29/2017] [id number] Note: [email or web address] Admin Note: 3 RDINJ Medications baclofen 10 mg oral tablet 1, tablet, By Mouth, 3 times a day, # 90 tablet, Refills 0, Tot. Refills 0, Maintenance, 10/07/20 16:49:00 EDT, Route to Pharmacy Electronically, [facility], 178, cm, 08/31/20 11:25:00 EDT, Height, 84.9, kg, 08/31/20 1:07:00 EDT, Dry Weight Start Date: 10/07/20 Status: Orderedchantix 1mg tablet 1 tablet, By Mouth, 2 times a day, for 12 week(s), # 56 tablet, 0 Refills, Acute, 09/05/20 17:32:00 EDT, [facility], 178, cm, 08/31/20 11:25:00 EDT, Height, [...] Refills, Maintenance, 11/02/19 9:02:00 EDT, Suspension, [facility]/pharmacy #[id number], 175, cm, 08/24/19 14:14:00 EDT, Height, 81.2, kg, 02/04/19 1:40:00 EDT, Dry Weight Start Date: 11/02/19 Status: Orderedfluticasone 50 mcg/inh nasal spray See Instructions, SPRAY 1 SPRAY INTO EACH NOSTRIL TWICE A DAY, # 16 Gm, 5 Refills, 07/09/20 11:38:00EST, [facility], 30, SPRAY 1 SPRAY INTO EACH NOSTRIL TWICE A DAY, 175, cm, 04/02/20 0:35:00 EDT, Height, 100, kg, 04/02/20 0:35:00 EDT, Dry We... Start Date: 07/09/20 Status: Orderedgabapentin 600 mg oral tablet 1 tablet, By Mouth, 4 times a day, # 120 tablet, 0 Refills, Maintenance, 10/07/20 16:49:00 EDT, [facility], 178, cm, 08/31/20 11:25:00 EDT, Height, 84.9, kg, 08/31/20 1:07:00 EDT, Dry Weight Start Date: 10/07/20 Status: OrderedhydrOXYzine hydrochloride 25 mg oral tablet 1 TO 2 TABLETS, By Mouth, 3 times a day, PRN NEEDED FOR ANXIETY (VIAL), # 60 tablet, 3 Refills, Maintenance, 10/07/20 16:49:00 EDT, [facility], 178, cm, 08/31/20 11:25:00 EDT, Height, 84.9, kg, 08/31/20 1:07:00 EDT, Dry Weight Start Date: 10/07/20 Status: Orderedlactulose 10 gm/15 ml oral syrup 30 mL = 20 Gm, By Mouth, 3 times a day, PRN Other, for 30 days, PRN to acheive 3-4 BMs per day fill in prefilled syringes, # 3,000 mL, 11 Refills, Acute 11/25/20 16:37:00 EDT, 12/01/19 16:37:00 EDT, Syrup, [facility], re sent from 10/04/17, 30... Start Date: 12/01/19 Stop Date: 11/25/20 Status: Orderedmelatonin 3 mg oral tablet 1 tablet = 3 mg, By Mouth, Daily at bedtime, PRN for insomnia, # 60 tablet, 4 Refills, Maintenance, 07/18/20 17:30:00 EST, Tablet, [facility], 175, cm, 04/02/20 0:35:00 EDT, Height, 100, kg, 04/02/20 0:35:00 EDT, Dry Weight Start Date: 07/18/20 Status: Orderedmupirocin 2% topical ointment See Instructions, APPLY TOPICALLY THREE TIMES DAILY (APPLY A THIN FILM), # 22 Gm, 0 Refills, Maintenance, 04/16/20 14:45:00 EST, [facility]/pharmacy #[id number], 8, APPLY TOPICALLY THREE TIMES [...] 1 Refills, Maintenance, 10/06/19 15:57:00 EDT, Tablet, [facility], 175, cm, 08/24/19 14:14:00 EDT, Height, 81.2, kg, 02/04/19 1:40:00 EDT, Dry Weight Start Date: 10/06/19 Status: Orderedsertraline 50 mg oral tablet 1 tablet, By Mouth, Daily, TAKE ALONG WITH A 100MG TABLET to equal 150mg daily, # 90 tablet, 1 Refills, Maintenance, 10/06/19 15:57:00 EDT, [facility], 175, cm, 08/24/19 14:14:00 EDT, Height, 81.2, kg, 02/04/19 1:40:00 EDT, Dry Weight Start Date: 10/06/19 Status: Orderedsildenafil 50 mg oral tablet 1 tablet = 50 mg, By Mouth, Daily, PRN erectile dysfunction, 1 hour before sexual activity, # 6 tablet, 5 Refills, Maintenance, 03/11/20 14:37:00 EDT, Tablet, [facility]/pharmacy #[id number], 175, cm, 08/24/19 14:14:00 EDT, Height, 81.2, kg, 02/04/19 1:40:00 EDT,... Start Date: 03/11/20 Status: HixnnyeEky-R-Lldb oral tablet See Instructions, TAKE 1 TABLET BY MOUTH ONCE A DAY, # 30 tablet, 10 Refills, Maintenance, [facility], 28, TAKE 1 TABLET BY MOUTH ONCE [...] Daily, # 21 tablet, 0 Refills, Maintenance, 10/07/20 16:16:00 EDT, Tablet, [facility]/pharmacy #[id number], Partial fill upon patient request if the prescription is for a schedule II opioid drug., 178, cm, 08/31/20 11:25:00 EDT, Height... Start Date: 10/07/20 Status: OrderedtraZODone 50 mg oral tablet See Instructions, TAKE 1 TO 2 TABLETS BY MOUTH AT BEDTIME (ONE DOSE IN VIAL), # 60 tablet, Refills 0, Maintenance, Instructions Replace Required Details, Route to Pharmacy Electronically, [facility], 178, cm, 08/31/20 11:25:00 EDT, Height, 84.... Start Date: 09/05/20 Status: OrderedVitamin B1 100 mg oral tablet 1, tablet, By Mouth, Daily, # 90 tablet, Refills 2, Tot. Refills 0, Acute, 09/05/20 17:32:00 EDT, Route to Pharmacy Electronically, [facility], 178, cm, 08/31/20 11:25:00 EDT, Height, [...] Active Vitamin D insufficiency(Confirmed) 08/16/12 Active 1refer ryycm3dlc HEP C,b; immune HEP A,3r/o pbamkfdsuxjupesb2yzmlrc6behkxbik counseling6? pievpqp3sfs RF ANCA,normal immunofixation,8lumbar puncture November 2011,neg lymenormal IGA neg SSA ,SSBnormal methylmalonic acid homocyseine9 legally blind;njwvqtzzlj93jrmpss echo November 2014 Social History Social History Type Response Smoking Status 10 or more cigarettes (1/2 p ack or more)/day in last 30 days entered on: 02/04/19 Sex
--- OUTSIDE RECORDS SUMMARY | 2022-03-14 03:18 | XMS_ITS | Continuity of Care Document ---
:1975 Author Organization [facility] Address [address] [place] [address]- Care Team Providers Name Role Phone Jany Baig DO Primary Care Physician Encounter [facility] Date(s): 09/28/21 - 09/28/[address] [address]- Encounter Diagnosis Cirrhosis (Final) - 09/28/21 Pulmonary edema (Final) - 09/28/21 Hypokalemia (Final) - 09/28/21 Discharge Disposition: A-D/C AMA Attending Physician: Iman Nolan MD Admitting Physician: Floyd LEE, Tree Worthington Referring Physician: Not on Staff, Referring MD [...] in the past and had GI side [id number] advised not to take d/t underlying liver [...] acel (oldterm) 08/02/12 Given 1Result Comment: [04/29/2017] [id number] Note: [id number] Note: 3 [id number] Note: #2 Medications amLODIPine 5 mg oral tablet 5 mg, 1, tablet, By Mouth, Daily, Refills 0, Maintenance, 09/17/21 10:57:00 EDT, Partial fill upon patient request if the prescription is for a schedule II opioid drug. Start Date: 09/17/21 Status: OrderedCo Q-10 100 mg oral capsule 1 capsule, By Mouth, 4 times a day, # 120 capsule, 6 Refills, [facility], 174, cm, 02/27/21 15:17:00 EDT, Height, 81, kg, 02/27/21 14:06:00 EDT, Dry Weight Start Date: 07/08/21 Status: Orderedfluticasone 50 mcg/inh nasal spray See Instructions, USE 1 SPRAY INTO EACH NOSTRIL TWICE A DAY, # 16 Gm, 5 Refills, [facility],30, USE 1 SPRAY INTO EACH NOSTRIL [...] ANXIETY (VIAL), # 60 tablet, 0 Refills, [facility], 174, cm, 08/14/21 14:21:00 EST, Height, 81, kg, 02/27/21 14:06:00 EDT, Dry Weight Start Date: 08/18/21 Status: Orderedlactulose 10 gm/15 ml oral syrup See Instructions, TAKE 30ML BY MOUTH THREE TIMES DAILY NEEDED TO ACHEIVE 3-4 BOWL MOVEMENTS PER DAY, # 3,000 mL, 10 Refills, [facility], 30, TAKE 30ML BY MOUTH [...] day, for 30 days, # 60 tablet, 0 Refills, Acute 10/24/21 11:30:00 EDT, 09/24/21 11:30:00 EDT, Tablet, [facility]/pharmacy #[id number], Partial fill upon patient request if theprescription is for a schedule II opioid drug., 1... Start Date: 09/24/21 Stop Date: 10/24/21 Status: OrderedMelatonin 3 mg oral tablet 1 tablet, By Mouth, Daily at bedtime, PRN NEEDED FOR INSOMNIA (PACKAGE IN TRAY), # 60 tablet, 5 Refills, Maintenance, 06/02/21 16:17:00 EST, [facility], 28, 1 tablet By Mouth [...] day, # 14 tablet, 0 Refills, Maintenance, 09/24/21 11:30:00 EDT, Tablet, [facility]/pharmacy #[id number], Partial fill upon patient request if the prescription is for a schedule II opioid drug., 172, cm, 09/10/21 14:39:00 EDT... Start Date: 09/24/21 Stop Date: 10/01/21 Status: PlgxczfGad-Z-Fzcw oral tablet 1 tablet, By Mouth, Daily, # 90 tablet, 9 Refills, [facility], 28, TAKE 1 TABLET BY MOUTH ONCE A DAY, 174, cm, 07/14/21 8:16:00 EST, Height, 81, kg, 02/27/21 14:06:00 EDT, Dry Weight Start Date: 07/22/21 Status: OrderedtraZODone 50 mg oral tablet See Instructions, TAKE 1 TO 2 TABLETS BY MOUTH AT BEDTIME (ONE DOSE IN VIAL), # 60 tablet, Refills 0, Instructions Replace Required Details, Route to Pharmacy Electronically, [facility], 174, cm, 08/14/21 14:21:00 EST, Height, 81, kg, 02/27/21... Start Date: 08/18/21 Status: OrderedVitamin B1 100 mg oral tablet 1, tablet, By Mouth, Daily, # 90 tablet, Refills 1, Route to Pharmacy Electronically, [facility], 174, cm, 02/27/21 15:17:00 EDT, Height, [...] Active Vitamin D insufficiency(Confirmed) 08/16/12 Active 1refer [id number] HEP C,b; immune HEP A,3r/o erbacjrpuvtesgnf3hjkaeu7irfgogbo counseling6? acjsuar9fsr RF ANCA,normal immunofixation,8lumbar puncture November 2011,neg lymenormal IGA neg SSA ,SSBnormal methylmalonic acid homocyseine9 legally blind;[id number] echo November 2014 Results Radiology Reports Exam Date Time Procedure Performing Provider Status 09/27/21 10:10 PM Chest Portable Ailyn De La Vega; Auth ([facility] ed) Notes:(Chest Portable) Reason For Exam: Shortness of BreathRESULT: Chest Portable Chest Portable Hx of Present Illness: SOB and CP with inspiration. hx of cirrhosis, recent PNA; Reason: Shortness of Breath; Clinical Question(s): Pneumonia COMPARISON: Prior chest radiograph dated September 05, 2021. FINDINGS: LINES AND TUBES: None. LUNGS AND PLEURA: Mildly congested appearing vasculature without wilma pulmonary edema. No definite consolidation. No pleural effusion. No pneumothorax. HEART, MEDIASTINUM AND DEEDEE: Heart is normal in size. Normal upper mediastinal and hilar contour. BONES AND SOFT TISSUES: No acute abnormality. Chronic appearing rib fractures bilaterally. Chronic irregularity at the lateral left clavicle. IMPRESSION: Mildly congested vasculature without wilma edema. No definite focal consolidation. WSN: [id number] Ordering Physician: Abhijit Guzman Dictated By: Juancho Chun MD Dictated Date/Time: 09/27/21 10:43 p Reviewed By: Juancho Chun MD Signed By: Juancho Chun MD Signed Date/Time: 09/27/21 10:43 pm Transcribed By: MIRNA Transcribed Date/Time: 09/27/21 10:41 pm Vital Signs Most recent to oldest [Reference Range]: 1 Height 175 cm (09/27/21 9:30 PM) Weight 87 kg (09/27/21 9:30 PM) Oxygen Saturation [94-100 %] 100 % (09/27/21 9:30 PM) Pulse Rate [55-90 bpm] 88 bpm (09/27/21 9:30 PM) Blood Pressure [90-138/55-84 mm Hg] 150/70 mm Hg *H* (09/27/21 9:30 PM) Respiratory Rate [16-30 br/min] 18 br/min (09/27/21 9:30 PM) Temperature [96.8-100.4 DegF] 98.5 DegF (09/27/21 9:30 PM) Mode of Delivery (Oxygen) Room air (09/27/21 9:30 PM) Temperature Route Oral (09/27/21 9:30 PM) Dry Weight 87 kg (09/27/21 9:30 PM) Social History Social History Type Response Smoking Status 10 or more cigarettes (1/2 p ack or more)/day in last 30 days entered on: 02/04/19 Sex
--- OUTSIDE RECORDS SUMMARY | 2022-03-14 03:18 | XMS_ITS | Continuity of Care Document ---
:1975 Author Organization [facility] Address [address] [place] [address]- Care Team Providers Name Role Phone Jany Baig DO Primary Care Physician Encounter [facility] Date(s): 01/23/20 - 02/22/20 [facility] [address] [place] [address]- [facility] Allergies, Adverse Reactions, Alerts Substance Reaction Severity Status ibuprofen1 Hx of GI Bleed Active aspirin2 Hx GI Bleed Active Tylenol3 Cirrhosis Active NSAIDs Active 1pt advised not to take NSAIDs or Tylenol due to underlying liver disease. Also had GI side effects when took too much aspirin in the past.2pt took too much in the past and had GI side [id number] advised not to take d/t underlying liver [...] 08/02/12 Given 1Admin Note: #22Result Comment: [04/29/2017] [id number] Note: [email or web address] Admin Note: 3 RDINJ Medications baclofen 10 mg oral tablet 10 mg, 1, tablet, By Mouth, 3 times a day, # 90 tablet, Refills 4, Tot. Refills 4, Maintenance, 02/16/20 17:55:00 EDT, Route to Pharmacy Electronically, [facility], 175, cm, 08/24/19 14:14:00 EDT, Height, 81.2, kg, 02/04/19 1:40:00 EDT, Dry We... Start Date: 02/16/20 Stop Date: 07/15/20 Status: Orderedchantix 1mg tablet 1 tablet = 1 mg, By Mouth, 2 times a day, with a full glass of water, continue for total of 12 wks, # 56 tablet, 1 Refills, Maintenance, 10/06/19 15:54:00 EDT, Tablet, [facility], 175, cm, 08/24/19 14:14:00 EDT, Height, 81.2, kg, 02/04/19 1:40... Start Date: 10/06/19 Status: Orderedchantix 1mg tablet See Instructions, TAKE 1 TABLET BY MOUTH TWICE A DAY WITH A FULL GLASS OF WATER AND CONTINUE FOR A TOTAL OF 12 WEEKS, # 56 tablet, 0 Refills, Maintenance, 02/16/20 17:54:00 EDT, [facility], 175, cm, 08/24/19 14:14:00 EDT, Height, 81.2, kg, 08/... Start Date: 02/16/20 Status: OrderedCo Q-10 100 mg oral capsule 1 capsule, By Mouth, 4 times a day, # 120 capsule, 11 Refills, Maintenance, 11/21/19 10:36:00 EDT, [facility]/pharmacy #[id number], 175, cm, 08/24/19 14:14:00 EDT, Height, 81.2, kg, 02/04/19 1:40:00 EDT, Dry Weight Start Date: 11/21/19 Stop Date: 11/15/20 Status: OrderedEngerix-B 20 mcg/mL intramuscular suspension = 20 mcg, Intramuscular, Every 30 days, rpt at 1 and 6 months, # 1 mL, 2 Refills, Maintenance, 11/02/19 9:02:00 EDT, Suspension, [facility]/pharmacy #[id number], 175, cm, 08/24/19 14:14:00 EDT, Height, 81.2, kg, 02/04/19 1:40:00 EDT, Dry Weight Start Date: 11/02/19 Status: Orderedfluticasone 50 mcg/inh nasal spray See Instructions, SPRAY 1 SPRAY INTO EACH NOSTRIL TWICE A DAY, # 16 Gm, 5 Refills, 01/26/20 9:52:00 EDT, [facility], 30, SPRAY 1 SPRAY INTO EACH NOSTRIL TWICE A DAY, 175, cm, 08/24/19 14:14:00 EDT, Height, 81.2, kg, 02/04/19 1:40:00 EDT, Dry W... Start Date: 01/26/20 Status: Orderedgabapentin 600 mg oral tablet 1 tablet = 600 mg, By Mouth, 4 times a day, to replace prior script, # 120 tablet, 3 Refills, Maintenance, 01/26/20 14:28:00 EDT, Tablet, [facility], 175, cm, 08/24/19 14:14:00 EDT, Height, 81.2, kg, 02/04/19 1:40:00 EDT, Dry Weight Start Date: 01/26/20 Stop Date: 05/25/20 Status: OrderedhydrOXYzine hydrochloride 25 mg oral tablet 1 TO 2 TABLETS, By Mouth, 3 times a day, PRN NEEDED FOR ANXIETY, # 60 tablet, 2 Refills, Maintenance, 02/16/20 17:56:00 EDT, [facility], 175, cm, 08/24/19 14:14:00 EDT, [...] EDT, 12/01/19 16:37:00 EDT, Syrup, [facility], re sent from 10/04/17, 30... [...] 4 Refills, Maintenance, 10/06/19 16:16:00 EDT, Tablet, [facility], 175, cm, 08/24/19 14:14:00 EDT, Height, 81.2, kg, 02/04/19 1:40:00 EDT, Dry Weight Start Date: 10/06/19 Status: Orderedmupirocin 2% topical ointment See Instructions, APPLY TOPICALLY THREE TIMES DAILY (APPLY A THIN FILM), # 22 Gm, 0 Refills, Acute, [facility], 8, APPLY TOPICALLY THREE TIMES DAILY (APPLY A THIN FILM), 175, cm, 08/24/19 14:14:00 EDT, Height, 81.2, kg, 02/04/19 1:40:00 EDT, D... Start Date: 10/30/19 Status: Orderedmupirocin 2% topical ointment See Instructions, APPLY TOPICALLY THREE TIMES DAILY (APPLY A THIN FILM), # 22 Gm, 0 Refills, Maintenance, 02/16/20 17:55:00 EDT, [facility], 8, APPLY TOPICALLY THREE TIMES DAILY (APPLY A THIN FILM), 175, cm, 08/24/19 14:14:00 EDT, Height, 81.2... Start Date: 02/16/20 Status: Orderedmupirocin 2% topical ointment See Instructions, APPLY TOPICALLY THREE TIMES DAILY (APPLY A THIN FILM), # 22 Gm, 0 Refills, Maintenance, 01/26/20 14:28:00 EDT, [facility], 8, APPLY TOPICALLY THREE TIMES [...] Maintenance, 10/06/19 15:57:00 EDT, Tablet, [facility], 175, cm, 08/24/19 14:14:00 EDT, Height, 81.2, kg, 02/04/19 1:40:00 EDT, Dry Weight Start Date: 10/06/19 Status: Orderedsertraline 50 mg oral tablet 1 tablet, By Mouth, Daily, TAKE ALONG WITH A 100MG TABLET to equal 150mg daily, # 90 tablet, 1 Refills, Maintenance, 10/06/19 15:57:00 EDT, [facility], 175, cm, 08/24/19 14:14:00 EDT, Height, 81.2, kg, 02/04/19 1:40:00 EDT, Dry Weight Start Date: 10/06/19 Status: KpgyhpzGyo-D-Bmly oral tablet 1 tablet, By Mouth, Daily, # 30 tablet, 11 Refills, Maintenance, 06/16/19 12:42:00 EST, [facility], 30, TAKE 1 TABLET BY [...] Details, Route to Pharmacy Electronically, [facility], 175, cm, 08/24/19 14:14:0... Start Date: 02/16/20 Status: OrderedVitamin B1 100 mg oral tablet 1, tablet, By Mouth, Daily, # 90 tablet, Refills 3, Tot. Refills 3, Maintenance, 09/27/19 8:51:00 EDT, Route to Pharmacy Electronically, [facility], 175, cm, 08/24/19 14:14:00 EDT, Height, 81.2, kg, 02/04/19 1:40:00 EDT, Dry Weight Start Date: 09/27/19 Status: OrderedXifaxan 550 mg oral tablet 1 tablet, By Mouth, 2 times a day, # 60 tablet, 0 Refills, Maintenance, 10/30/19 16:57:00 EDT, [facility], 175, cm, 08/24/19 14:14:00 EDT, Height, 81.2, kg, 02/04/19 1:40:00 EDT, Dry Weight Start Date: 10/30/19 Status: OrderedXifaxan 550 mg oral tablet See Instructions, TAKE 1 TABLET BY MOUTH TWICE A DAY, # 60 tablet, 0 Refills, 02/16/20 17:54:00 EDT,[facility], 175, cm, 08/24/19 14:14:00 EDT, [...] Active Vitamin D insufficiency(Confirmed) 08/16/12 Active 1refer qbnbx0ezk HEP C,b; immune HEP A,3r/o jkbyaetygkpklhbl2sznsxp4tsnayjle counseling6? ioeebhe4slq RF ANCA,normal immunofixation,8lumbar puncture November 2011,neg lymenormal IGA neg SSA ,SSBnormal methylmalonic acid homocyseine9 legally blind;[id number] echo November 2014 Social History Social History Type Response Smoking Status 10 or more cigarettes (1/2 p ack or more)/day in last 30 days entered on: 02/04/19 Sex
--- OUTSIDE RECORDS SUMMARY | 2022-03-14 03:18 | XMS_ITS | Continuity of Care Document ---
:1975 Author Organization [facility] Address [address] [place] [address]- Care Team Providers Name Role Phone Jany Baig DO Primary Care Physician [facility] Date[facility]s): 11/21/20 - 12/21/20 [facility] [id number] [place] [address]- Allergies, Adverse Reactions, Alerts Substance Reaction Severity Status ibuprofen1 Hx of GI Bleed Active aspirin2 Hx GI Bleed Active Tylenol3 Cirrhosis Active NSAIDs Active 1pt advised not to take NSAIDs or Tylenol due to underlying liver disease. Also had GI side effects when took too much aspirin in the past.2pt took too much in the past and had GI side spoumgs8zt advised not to take d/t underlying liver [...] 08/02/12 Given 1Admin Note: #22Result Comment: [04/29/2017] [id number] Note: [email or web address] Admin Note: 3 RDINJ Medications baclofen 10 mg oral tablet 1, tablet, By Mouth, 3 times a day, # 90 tablet, Refills 0, Tot. Refills 0, Maintenance, 11/22/20 16:13:00 EDT, Route to Pharmacy Electronically, [facility], 178, cm, 11/12/20 15:32:00 EDT, Height, 84.9, kg, 08/31/20 1:07:00 EDT, Dry Weight Start Date: 11/22/20 Status: Orderedchantix 1mg tablet 1 tablet, By Mouth, 2 times a day, # 56 tablet, 0 Refills, Acute, 11/22/20 16:13:00 EDT, [facility], 178, cm, 11/12/20 15:32:00 EDT, Height, 84.9, kg, 08/31/20 1:07:00 EDT, Dry Weight Start Date: 11/22/20 Status: OrderedCo Q-10 100 mg oral capsule See Instructions, TAKE 1 CAPSULE BY MOUTH FOUR TIMES DAILY, # 120 capsule, 7 Refills, Maintenance, [facility], 178, cm, 10/22/20 13:17:00 EDT, [...] # 16 Gm, 5 Refills, 07/09/20 11:38:00EST, [facility], 30, SPRAY 1 SPRAY INTO EACH NOSTRIL TWICE A DAY, 175, cm, 04/02/20 0:35:00 EDT, Height, 100, kg, 04/02/20 0:35:00 EDT, Dry We... Start Date: 07/09/20 Status: Orderedgabapentin 600 mg oral tablet 1 tablet, By Mouth, 4 times a day, # 120 tablet, 0 Refills, Maintenance, 11/22/20 16:13:00 EDT, [facility], 178, cm, 11/12/20 15:32:00 EDT, Height, 84.9, kg, 08/31/20 1:07:00 EDT, Dry Weight Start Date: 11/22/20 Status: OrderedhydrOXYzine hydrochloride 25 mg oral tablet 1 TO 2 TABLETS, By Mouth, 3 times a day, PRN NEEDED FOR ANXIETY (VIAL), # 60 tablet, 3 Refills, Maintenance, 10/07/20 16:49:00 EDT, [facility], 178, cm, 08/31/20 11:25:00 EDT, Height, 84.9, kg, 08/31/20 1:07:00 EDT, Dry Weight Start Date: 10/07/20 Status: OrderedKeppra 500 mg oral tablet 1 tablet = 500 mg, By Mouth, 2 times a day, # 14 tablet, 0 Refills, Maintenance, 11/01/20 11:59:00 EDT, Tablet, [facility] 3, Partial fill upon patient request if the prescription is for a schedule II opioid drug., 178, cm, 10/22/20 13:17:... Start Date: 11/01/20 Stop Date: 11/08/20 Status: Orderedmelatonin 3 mg oral tablet 1 tablet = 3 mg, By Mouth, Daily at bedtime, PRN for insomnia, # 60 tablet, 4 Refills, Maintenance, 07/18/20 17:30:00 EST, Tablet, [facility], 175, cm, 04/02/20 0:35:00 EDT, [...] 1 Refills, Maintenance, 10/06/19 15:57:00 EDT, Tablet, [facility], 175, cm, 08/24/19 14:14:00 EDT, Height, 81.2, kg, 02/04/19 1:40:00 EDT, Dry Weight Start Date: 10/06/19 Status: Orderedsertraline 50 mg oral tablet 1 tablet, By Mouth, Daily, TAKE ALONG WITH A 100MG TABLET to equal 150mg daily, # 90 tablet, 1 Refills, Maintenance, 10/06/19 15:57:00 EDT, [facility], 175, cm, 08/24/19 14:14:00 EDT, [...] 02/04/19 1:40:00 EDT,... Start Date: 03/11/20 Status: SpulahvYag-L-Wahq oral tablet See Instructions, TAKE 1 TABLET BY MOUTH ONCE A DAY, # 30 tablet, 10 Refills, Maintenance, [facility], 28, TAKE 1 TABLET [...] Maintenance, 10/22/20 17:52:00 EDT, Tablet, [facility] [...] Replace Required Details, Route to Pharmacy Electronically, [facility], 178, cm, 10/22/20... Start Date: 11/01/20 Status: OrderedVitamin B1 100 mg oral tablet 1, tablet, By Mouth, Daily, # 90 tablet, Refills 2, Tot. Refills 0, Acute, 09/05/20 17:32:00 EDT, Route to Pharmacy Electronically, [facility], 178, cm, 08/31/20 11:25:00 EDT, [...] Active Vitamin D insufficiency(Confirmed) 08/16/12 Active 1refer lfhux6uns HEP C,b; immune HEP A,3r/o jlukixdniqnsdhxy9uqkrie2ioggqqjq counseling6? kbutdgp0ldj RF ANCA,normal immunofixation,8lumbar puncture November 2011,neg lymenormal IGA neg SSA ,SSBnormal methylmalonic acid homocyseine9 legally blind;[id number] echo November 2014 Social History Social History Type Response Smoking Status 10 or more cigarettes (1/2 p ack or more)/day in last 30 days entered on: 02/04/19 Sex
--- OUTSIDE RECORDS SUMMARY | 2022-03-14 03:18 | XMS_ITS | Continuity of Care Document ---
:1975 Author Organization [facility] Address [address] [place] [address]- Care Team Providers Name Role Phone Jany Baig DO Primary Care Physician [facility] Date(s): 07/11/21 - 08/10/21 [facility] [address] [place] [id number] Allergies, Adverse Reactions, Alerts Substance Reaction Severity Status ibuprofen1 Hx of GI Bleed Active aspirin2 Hx GI Bleed Active Tylenol3 Cirrhosis Active NSAIDs Active 1pt advised not to take NSAIDs or Tylenol due to underlying liver disease. Also had GI side effects when took too much aspirin in the past.2pt took too much in the past and had GI side ltcubel2qz advised not to take d/t underlying liver [...] acel (oldterm) 08/02/12 Given 1Result Comment: [04/29/2017] [id number] Note: [id number] Note: 3 [id number] Note: #2 Medications baclofen 10 mg oral tablet 1, tablet, By Mouth, 3 times a day, # 90 tablet, Refills 0, Route to Pharmacy Electronically, [facility], 174, cm, 02/27/21 15:17:00 EDT, Height, 81, kg, 02/27/21 14:06:00 EDT, Dry Weight Start Date: 07/08/21 Status: Orderedchantix 1mg tablet 1 tablet, By Mouth, 2 times a day, # 56 tablet, 0 Refills, Acute, 11/22/20 16:13:00 EDT, [facility], 178, cm, 11/12/20 15:32:00 EDT, Height, 84.9, kg, 08/31/20 1:07:00 EDT, Dry Weight Start Date: 11/22/20 Status: OrderedCo Q-10 100 mg oral capsule 1 capsule, By Mouth, 4 times a day, # 120 capsule, 6 [facility]ills[facility], 174, cm, 02/27/21 15:17:00 EDT, Height, 81, kg, 02/27/21 14:06:00 EDT, Dry Weight Start Date: 07/08/21 Status: Orderedfluticasone 50 mcg/inh nasal spray See Instructions, USE 1 SPRAY INTO EACH NOSTRIL TWICE A DAY, # 16 Gm, 5 Refills, [facility], USE 1 SPRAY INTO EACH NOSTRIL TWICE A DAY, 174, cm, 07/14/21 8:16:00 EST, Height, 81, kg, 02/27/21 14:06:00 EDT, Dry Weight Start Date: 08/04/21 Status: Orderedgabapentin 600 mg oral tablet 1 tablet, By Mouth, 4 times a day, # 120 tablet, 0 Refills, [facility], 174, cm, 02/27/21 15:17:00 EDT, Height, 81, kg, 02/27/21 14:06:00 EDT, Dry Weight Start Date: 07/08/21 Status: OrderedhydrOXYzine hydrochloride 25 mg oral tablet 1 TO 2 TABLETS, By Mouth, 3 times a day, PRN NEEDED FOR ANXIETY (VIAL), # 60 tablet, 0 Refills, [facility], 174, cm, 02/27/21 15:17:00 EDT, [...] Acute 09/05/21 15:22:00 EDT, 08/08/2214:22:00 EST, Patch, [facility]/pharmacy #[id number], Partial fill upon patient request if the prescription is for a schedule II opioid drug., 1 patch Topically Da... Start Date: 08/08/21 Stop Date: 09/05/21 Status: Orderednicotine 21 mg/24 hr transdermal film, extended release 1 patch, Topically, Daily, for 28 days, # 28 patch, 0 Refills, Acute 09/05/21 15:29:00 EDT, 08/08/2214:29:00 EST, Patch, [facility]/pharmacy #[id number], Partial fill upon patient request if the prescription is for a schedule II opioid drug., 1 patch Topically Da... Start Date: 08/08/21 Stop Date: 09/05/21 Status: OrderedNicotine 7 mg/24 hour patch 1 patch, Topically, Daily, for 28 days, # 28 patch, 0 Refills, Acute 09/05/21 15:22:00 EDT, 08/08/2214:22:00 EST, Patch, [facility]/pharmacy #[id number], Partial fill upon patient request [...] Maintenance, 10/06/19 15:57:00 EDT, Tablet, [facility], 175, cm, 08/24/19 14:14:00 EDT, Height, 81.2, kg, 02/04/19 1:40:00 EDT, Dry Weight Start Date: 10/06/19 Status: Orderedsertraline 50 mg oral tablet 1 tablet, By Mouth, Daily, TAKE ALONG WITH A 100MG TABLET to equal 150mg daily, # 90 tablet, 1 Refills, Maintenance, 10/06/19 15:57:00 EDT, [facility], 175, cm, 08/24/19 14:14:00 EDT, Height, 81.2, kg, 02/04/19 1:40:00 EDT, Dry Weight Start Date: 10/06/19 Status: Orderedsildenafil 50 mg oral tablet 1 tablet = 50 mg, By Mouth, Daily, PRN erectile dysfunction, 1 hour before sexual activity, # 6 tablet, 5 Refills, Maintenance, 03/11/20 14:37:00 EDT, Tablet, [facility]/pharmacy #[id number], 175, cm, 08/24/19 14:14:00 EDT, Height, 81.2, kg, 02/04/19 1:40:00 EDT,... Start Date: 03/11/20 Status: YjisrweHdw-C-Eknn oral tablet 1 tablet, By Mouth, Daily, [...] 0 Refills, Maintenance, 10/22/20 17:52:00 EDT, Tablet, [facility]/pharmacy #[id number], Partial fill upon patient request [...] Pharmacy Electronically, [facility], 174, cm, 02/27/21 15:17:00 EDT, Height, 81, kg, 02/27/21... Start Date: 07/10/21 Status: OrderedtraZODone 50 mg oral tablet See Instructions, TAKE 1 TO 2 TABLETS BY MOUTH AT BEDTIME (ONE DOSE IN VIAL), # 60 tablet, Refills 5, Instructions Replace Required Details, Route to Pharmacy Electronically, [facility], 174, cm, 02/11/21 12:09:00 EDT, Height, 86.6, kg, ... Start Date: 02/15/21 Status: Orderedvarenicline 0.5 mg tablet 1 tablet = 0.5 mg, By Mouth, 2 times a day, Days 1 to 3: 0.5 mg once daily. Days 4 to 7: 0.5 mg twice daily. then start new script for 1 mg twice a day, # 11 tablet, 0 Refills, Maintenance, 08/08/21 15:24:00 EST, Tablet, [facility]/pharmacy #[id number], Partial f... Start Date: 08/08/21 Status: Orderedvarenicline 1mg tablet 1 tablet = 1 mg, By Mouth, 2 times a day, to start after 0.5 mg tabs, # 56 tablet, 0 Refills, Maintenance, 08/08/21 15:26:00 EST, Tablet, [facility]/pharmacy #[id number], Partial fill upon patient request if the prescription is for a schedule II opioid drug., 174,... Start Date: 08/08/21 Status: OrderedVitamin B1 100 mg oral tablet 1, tablet, By Mouth, Daily, # 90 tablet, Refills 1, Route to Pharmacy Electronically, [facility], 174, cm, 02/27/21 15:17:00 EDT, Height, 81, kg, 02/27/21 14:06:00 EDT, Dry Weight Start Date: 06/16/21 Status: OrderedXifaxan 550 mg oral tablet 1 tablet, By Mouth, 2 times a day, # 60 tablet, 0 Refills, Maintenance, 04/16/20 14:45:00 EST, [facility]/pharmacy #[id number], 175, cm, 04/02/20 0:35:00 EDT, [...] Active Vitamin D insufficiency(Confirmed) 08/16/12 Active 1refer qjpen4ppm HEP C,b; immune HEP A,3r/o czxwlmsjwurdeekh1eqcmme5nmsgectq counseling6? tgidtsu9jhx RF ANCA,normal immunofixation,8lumbar puncture November 2011,neg lymenormal IGA neg SSA ,SSBnormal methylmalonic acid homocyseine9 legally blind;[id number] echo November 2014 Social History Social History Type Response Smoking Status 10 or more cigarettes (1/2 p ack or more)/day in last 30 days entered on: 02/04/19 Sex Male
--- OUTSIDE RECORDS SUMMARY | 2022-03-14 03:18 | XMS_ITS | Continuity of Care Document ---
:[address] [facility] Address [address] [place] [address]- Care Team Providers Name Role Phone Jany Baig DO Primary Care Physician [facility]counter [facility] Date(s): 08/14/21 - 09/13/21 [facility] [address] [place] [address]- Allergies, Adverse Reactions, Alerts Substance Reaction Severity Status ibuprofen1 Hx of GI Bleed Active aspirin2 Hx GI Bleed Active Tylenol3 Cirrhosis Active NSAIDs Active 1pt advised not to take NSAIDs or Tylenol due to underlying liver disease. Also had GI side effects when took too much aspirin in the past.2pt took too much in the past and had GI side lbwimlu8br advised not to take d/t underlying liver [...] acel (oldterm) 08/02/12 Given 1Result Comment: [04/29/2017] [id number] Note: [id number] Note: 3 [id number] Note: #2 Medications acamprosate 333 mg oral [...] a day, # 120 capsule, 6 Refills, [facility], 174, cm, 02/27/21 15:17:00 EDT, Height, 81, kg, 02/27/21 14:06:00 EDT, Dry Weight Start Date: 07/08/21 Status: Orderedfluticasone 50 mcg/inh nasal spray See Instructions, USE 1 SPRAY INTO EACH NOSTRIL TWICE A DAY, # 16 Gm, 5 Refills, [facility],30, USE 1 SPRAY INTO EACH NOSTRIL TWICE A DAY, 174, cm, 07/14/21 8:16:00 EST, Height, 81, kg, 02/27/21 14:06:00 EDT, Dry Weight Start Date: 08/04/21 Status: OrderedhydrOXYzine hydrochloride 25 mg oral tablet 1 TO 2 TABLETS, By Mouth, 3 times a day, PRN NEEDED FOR ANXIETY (VIAL), # 60 tablet, 0 Refills, [facility], 174, cm, 08/14/21 14:21:00 EST, Height, 81, kg, 02/27/21 14:06:00 EDT, Dry Weight Start Date: 08/18/21 Status: Orderedlactulose 10 gm/15 ml oral syrup See Instructions, TAKE 30ML BY MOUTH THREE TIMES DAILY NEEDED TO ACHEIVE 3-4 BOWL MOVEMENTS PER DAY, # 3,000 mL, 10 Refills, [facility], 30, TAKE 30ML BY MOUTH THREE TIMES DAILY NEEDED TOACHEIVE 3-4 BOWL MOVEMENTS PER DAY, 174, cm, 02/12... Start Date: 07/02/21 Status: OrderedMelatonin 3 mg oral tablet 1 tablet, By Mouth, Daily at bedtime, PRN NEEDED FOR INSOMNIA (PACKAGE IN TRAY), # 60 tablet, 5 Refills, Maintenance, 06/02/21 16:17:00 EST, [facility], 28, 1 tablet By Mouth [...] II opioid drug. Start Date: 08/28/21 Status: OvjugchTcf-V-Lcgb oral tablet 1 tablet, By Mouth, Daily, # 90 tablet, 9 Refills, [facility], 28, TAKE 1 TABLET BY MOUTH [...] Pharmacy Electronically, [facility], 174, cm, 08/14/21 14:21:00 EST, Height, 81, kg, 02/27/21... Start Date: 08/18/21 Status: Orderedvarenicline 1mg tablet 1 tablet, By Mouth, 2 times a day, INSTR:TO START AFTER 0.5 MG TABS, # 56 tablet, 2 Refills, [id number], 172, cm, 08/28/21 23:35:00 EDT, Height, 85.4, kg, 08/20/21 16:20:00 EST, Dry Weight Start Date: 09/01/21 Status: OrderedVitamin B1 100 mg oral tablet 1, tablet, By Mouth, Daily, # 90 tablet, Refills 1, Route to Pharmacy Electronically, [facility], 174, cm, 02/27/21 15:17:00 EDT, [...] Active Vitamin D insufficiency(Confirmed) 08/16/12 Active 1refer kibtw1cbo HEP C,b; immune HEP A,3r/o faobmoukcixfhbbi6eciwoy2wruoudaz counseling6? gsroxea2mwy RF ANCA,normal immunofixation,8lumbar puncture November 2011,neg lymenormal IGA neg SSA ,SSBnormal methylmalonic acid homocyseine9 legally blind;fenonpadrf78zfrzih echo November 2014 Social History Social History Type Response Smoking Status 10 or more cigarettes (1/2 p ack or more)/day in last 30 days entered on: 02/04/19 Sex Male
--- OUTSIDE RECORDS SUMMARY | 2022-03-14 03:18 | XMS_ITS | Continuity of Care Document ---
:1975 Author Organization [address], [address] [place] [address]- Care Team Providers Name Role Phone Jany Baig DO Primary Care Physician Encounter [facility] Date(s): 10/22/20 - 10/29/[address], [address] [place] [address]- Attending Physician: Not on Staff, Attending MD [...] in the past and had GI side cgcnfbq3mg advised not to take d/t underlying liver [...] 08/02/12 Given 1Admin Note: #22Result Comment: [04/29/2017] [id number] Note: [email or web address] Admin Note: 3 RDINJ Medications baclofen 10 mg oral tablet 1, tablet, By Mouth, 3 times a day, # 90 tablet, Refills 0, Tot. Refills 0, Maintenance, 10/07/20 16:49:00 EDT, Route to Pharmacy Electronically, [facility], 178, cm, 08/31/20 11:25:00 EDT, Height, 84.9, kg, 08/31/20 1:07:00 EDT, Dry Weight Start Date: 10/07/20 Status: Orderedchantix 1mg tablet 1 tablet, By Mouth, 2 times a day, for 12 week(s), # 56 tablet, 0 Refills, Acute, 09/05/20 17:32:00 EDT, [facility], 178, cm, 08/31/20 11:25:00 EDT, [...] 2 Refills, Maintenance, 11/02/19 9:02:00 EDT, Suspension, [facility]/pharmacy #[id number], 175, cm, 08/24/19 14:14:00 EDT, Height, 81.2, kg, 02/04/19 1:40:00 EDT, Dry Weight Start Date: 11/02/19 Status: Orderedfluticasone 50 mcg/inh nasal spray See Instructions, SPRAY 1 SPRAY INTO EACH NOSTRIL TWICE A DAY, # 16 Gm, 5 Refills, 07/09/20 11:38:00EST, [facility], 30, SPRAY 1 SPRAY INTO EACH NOSTRIL TWICE A DAY, 175, cm, 04/02/20 0:35:00 EDT, Height, 100, kg, 04/02/20 0:35:00 EDT, Dry We... Start Date: 07/09/20 Status: Orderedgabapentin 600 mg oral tablet 1 tablet, By Mouth, 4 times a day, # 120 tablet, 0 Refills, Maintenance, 10/07/20 16:49:00 EDT, [facility], 178, cm, 08/31/20 11:25:00 EDT, Height, 84.9, kg, 08/31/20 1:07:00 EDT, Dry Weight Start Date: 10/07/20 Status: OrderedhydrOXYzine hydrochloride 25 mg oral tablet 1 TO 2 TABLETS, By Mouth, 3 times a day, PRN NEEDED FOR ANXIETY (VIAL), # 60 tablet, 3 Refills, Maintenance, 10/07/20 16:49:00 EDT, [facility], 178, cm, 08/31/20 11:25:00 EDT, [...] 11/25/20 16:37:00 EDT, 12/01/19 16:37:00 EDT, Syrup, [facility], re sent from 10/04/17, 30... Start Date: 12/01/19 Stop Date: 11/25/20 Status: Orderedmelatonin 3 mg oral tablet 1 tablet = 3 mg, By Mouth, Daily at bedtime, PRN for insomnia, # 60 tablet, 4 Refills, Maintenance, 07/18/20 17:30:00 EST, Tablet, [facility], 175, cm, 04/02/20 0:35:00 EDT, Height, 100, kg, 04/02/20 0:35:00 EDT, Dry Weight Start Date: 07/18/20 Status: Orderedmupirocin 2% topical ointment See Instructions, APPLY TOPICALLY THREE TIMES DAILY (APPLY A THIN FILM), # 22 Gm, 0 Refills, Maintenance, 04/16/20 14:45:00 EST, [facility]/pharmacy #[id number], 8, APPLY TOPICALLY THREE TIMES [...] Maintenance, 10/06/19 15:57:00 EDT, Tablet, [facility], 175, cm, 08/24/19 14:14:00 EDT, Height, 81.2, kg, 02/04/19 1:40:00 EDT, Dry Weight Start Date: 10/06/19 Status: Orderedsertraline 50 mg oral tablet 1 tablet, By Mouth, Daily, TAKE ALONG WITH A 100MG TABLET to equal 150mg daily, # 90 tablet, 1 Refills, Maintenance, 10/06/19 15:57:00 EDT, [facility], 175, cm, 08/24/19 14:14:00 EDT, [...] 02/04/19 1:40:00 EDT,... Start Date: 03/11/20 Status: VnryjspGcd-Q-Rpwn oral tablet See Instructions, TAKE 1 TABLET BY MOUTH ONCE A DAY, # 30 tablet, 10 Refills, [facility], [facility], TAKE 1 TABLET BY MOUTH [...] Details, Route to Pharmacy Electronically, [facility], 178, cm, 08/31/20 11:25:00 EDT, Height, 84.... Start Date: 09/05/20 Status: OrderedVitamin B1 100 mg oral tablet 1, tablet, By Mouth, Daily, # 90 tablet, Refills 2, Tot. Refills 0, Acute, 09/05/20 17:32:00 EDT, Route to Pharmacy Electronically, [facility], 178, cm, 08/31/20 11:25:00 EDT, Height, [...] Active Vitamin D insufficiency(Confirmed) 08/16/12 Active 1refer bqppi1bbk HEP C,b; immune HEP A,3r/o cmirazjucogiiguk3uikvfp8sfiprfkj counseling6? tdqimvi8kre RF ANCA,normal immunofixation,8lumbar puncture November 2011,neg lymenormal IGA neg SSA ,SSBnormal methylmalonic acid homocyseine9 legally blind;yjmiviqrlx12ayyknu echo November 2014 Vital Signs Most recent to oldest [Reference Range]: 1 Height 178 cm (10/22/20 1:17 PM) Weight 86.4 kg (10/22/20 1:17 PM) Body Mass Index [18.5-24.99] 27.27 *H* (10/22/20 1:17 PM) Social History Social History Type Response Smoking Status 10 or more cigarettes (1/2 p ack or more)/day in last 30 days entered on: 02/04/19 Sex
--- OUTSIDE RECORDS SUMMARY | 2022-03-14 03:18 | XMS_ITS | Continuity of Care Document ---
:1975 Author Organization [facility] Address [address] [place] [address]- Care Team Providers Name Role Phone Jany Baig DO Primary Care Physician [place] [facility] [place] 09/17/[address] [address]- Discharge Disposition: A-Transfer SNF Attending Physician: Blanco Zhong MD Admitting Physician: Dominic Ramirez MD Referring Physician: Not on Staff, Referring [...] in the past and had GI side [id number] advised not to take d/t underlying liver [...] acel (oldterm) 08/02/12 Given 1Result Comment: [04/29/2017] [id number] Note: [id number] Note: 3 [id number] Note: #2 Medications amLODIPine 5 mg oral tablet 5 mg, Tablet, By Mouth, 09/17/21 9:00:00 EDT Start Date: 09/17/21 Stop Date: 09/17/21 Status: CompletedamLODIPine 5 mg oral tablet 5 mg, 1, tablet, By Mouth, Daily, Refills 0, Maintenance, 09/17/21 10:57:00 EDT, Partial fill upon patient request if the prescription is for a schedule II opioid drug. Start Date: 09/17/21 Status: OrderedCo Q-10 100 mg oral capsule 1 capsule, By Mouth, 4 times a day, # 120 capsule, 6 Refills, [facility], 174, cm, 02/27/21 15:17:00 EDT, Height, 81, kg, 02/27/21 14:06:00 EDT, Dry Weight Start Date: 07/08/21 Status: Orderedfluticasone 50 mcg/inh nasal spray See Instructions, USE 1 SPRAY INTO EACH NOSTRIL TWICE A DAY, # 16 Gm, 5 Refills, [facility],30, USE 1 SPRAY INTO EACH NOSTRIL [...] oral capsule 300 mg, Capsule, By Mouth, 09/17/21 9:00:00 EDT Start Date: 09/17/21 Stop Date: 09/17/21 Status: Completedgabapentin 300 mg oral capsule 300 mg, 1, [...] # 60 tablet, 0 Refills, [facility], 174, cm, 08/14/21 14:21:00 EST, Height, 81, kg, 02/27/21 14:06:00 EDT, Dry Weight Start Date: 08/18/21 Status: Orderedlactulose 10 gm/15 ml oral syrup See Instructions, TAKE 30ML BY MOUTH THREE TIMES DAILY NEEDED TO ACHEIVE 3-4 BOWL MOVEMENTS PER DAY, # 3,000 mL, 10 Refills, [facility], 30, TAKE 30ML BY MOUTH [...] Refills, Maintenance, 06/02/21 16:17:00 EST, [facility], 28, 1 tablet By Mouth [...] II opioid drug. Start Date: 08/28/21 Status: DiesphkYpk-N-Pdtx oral tablet 1 tablet, By Mouth, Daily, # 90 tablet, 9 Refills, [facility], 28, TAKE 1 TABLET BY MOUTH ONCE A DAY, 174, cm, 07/14/21 8:16:00 EST, Height, 81, kg, 02/27/21 14:06:00 EDT, Dry Weight Start Date: 07/22/21 Status: OrderedtraZODone 50 mg oral tablet See Instructions, TAKE 1 TO 2 TABLETS BY MOUTH AT BEDTIME (ONE DOSE IN VIAL), # 60 tablet, Refills 0, Instructions Replace Required Details, Route to Pharmacy Electronically, [facility], 174, cm, 08/14/21 14:21:00 EST, Height, 81, kg, 02/27/21... Start Date: 08/18/21 Status: OrderedVitamin B1 100 mg oral tablet 1, tablet, By Mouth, Daily, # 90 tablet, Refills 1, Route to Pharmacy Electronically, [facility], 174, cm, 02/27/21 15:17:00 EDT, Height, [...] Active Vitamin D insufficiency(Confirmed) 08/16/12 Active 1refer biomj5sgc HEP C,b; immune HEP A,3r/o rkrbwzikdtkpzotk4sjbtxw1xpwmkjip counseling6? xdnabvo5eqk RF ANCA,normal immunofixation,8lumbar puncture November 2011,neg lymenormal IGA neg SSA ,SSBnormal methylmalonic acid homocyseine9 legally blind;ymbtnmlvcm86rxqsad echo November 2014 Results Orders for Microbiology Reports Name Date Blood Culture 09/05/21 Blood Culture #2 09/05/21 Blood Culture 09/04/21 Blood Culture #2 09/04/21 Microbiology Reports TEST:Blood Culture STATUS:Auth (Verified) BODY SITE: SOURCE:Blood COLLECTED DATE/TIME:09/05/21 2:32 PMBlood Culture SPECIMEN DESCRIPTION : BLOOD NO SITE SPECIAL REQUESTS : NONE CULTURE : NO GROWTH 5 DAYS. REPORT STATUS : FINAL 09/10/2021TEST:Blood Culture, Second Order STATUS:Auth (Verified) BODY SITE: SOURCE:Blood COLLECTED DATE/TIME:09/05/21 2:32 PMBlood Culture, Second Order SPECIMEN DESCRIPTION : BLOOD NO SITE SPECIAL REQUESTS : NONE CULTURE : NO GROWTH 5 DAYS. REPORT STATUS : FINAL 09/10/2021TEST:Blood Culture STATUS:Auth (Verified) BODY SITE: SOURCE:Blood COLLECTED DATE/TIME:09/04/21 1:31 AMBlood Culture SPECIMEN DESCRIPTION : BLOOD NONE SPECIAL REQUESTS : NONE CULTURE : NO GROWTH 6 DAYS REPORT STATUS : FINAL 09/10/2021TEST:Blood Culture, Second Order STATUS:Auth (Verified) BODY SITE: SOURCE:Blood COLLECTED DATE/TIME:09/04/21 1:25 AMBlood Culture, Second Order SPECIMEN DESCRIPTION : BLOOD NONE SPECIAL REQUESTS : NONE CULTURE : NO GROWTH 6 DAYS REPORT STATUS : FINAL 2Radiology Reports Exam Date Time Procedure Performing Provider Status 09/05/21 6:24 AM Chest Portable Augustine , Yassine; Auth (Verified) Notes:(Chest Portable) Reason For Exam: Tube PlacementRESULT: Chest Portable Chest Portable Reason: Tube Placement; Clinical Question(s): Tube Placement; ng tube COMPARISON: Multiple priors, the most recent 09/04/2021 FINDINGS: LINES AND TUBES: Enteric tube in good position with its tip and side-port in the stomach. LUNGS AND PLEURA: Increased pulmonary vascularity with hazy increased airspace density in both lungs appearing more prominent than in the most recent prior study. Findings are more severe on the right than the left. No pleural effusion. No pneumothorax. HEART, MEDIASTINUM AND DEEDEE: Heart is normal in size. Normal upper mediastinal and hilar contour. BONES AND SOFT TISSUES: No acute abnormality. IMPRESSION: Pulmonary edema. Note is made that developing multifocal pneumonia cannot be excluded. Enteric tube remains in good position. WSN: [id number] Ordering Physician: Nicole Prince Dictated By: Waylon Blanc MD Dictated Date/Time: 09/05/21 8:44 am Reviewed By: Waylon Blanc MD Signed By: Waylon Blanc MD Signed Date/Time: 09/05/21 8:44 am Transcribed By: MIRNA Transcribed Date/Time: 09/05/21 8:39 am Exam Date Time Procedure Performing Provider Status 09/04/21 1:54 AM Chest Portable Anup Crum; Tanna (Verified) Notes:(Chest Portable) Reason For Exam: FeverRESULT: Chest Portable Chest Portable Reason: Fever; Clinical Question(s): Pneumonia COMPARISON: 08/30/2020. FINDINGS: LINES AND TUBES: None. LUNGS AND PLEURA: Clear lungs. Normal pulmonary vascularity. No pleural effusion. No pneumothorax. HEART, MEDIASTINUM AND DEEDEE: Heart is normal in size. Normal upper mediastinal and hilar contour. BONES AND SOFT TISSUES: No acute abnormality. IMPRESSION: No acute abnormality. WSN: [id number] Ordering Physician: Emma Sahni Dictated By: Surya Roberts MD Dictated Date/Time: 09/04/21 7:57 am Reviewed By: Surya Roberts MD Signed By: Surya Roberts MD Signed Date/Time: 09/04/21 7:57 am Transcribed By: MIRNA Transcribed Date/Time: 09/04/21 7:57 am Vital Signs Most recent to oldest 1 2 3 [Reference Range]: Height 172 cm 172 cm 172 cm (09/10/21 2:39 PM) (09/04/21 2:17 AM) (09/04/21 12: 33 AM) Weight 87 kg 85.4 kg 85.4 kg (09/10/21 2:39 PM) (08/21/21 3:00 AM) (08/20/21 11:0 0 PM) Oxygen Saturation [94-100 %] 100 % 100 % 100 % (09/17/21 7:00 AM) (09/16/21 7:00 PM) (09/16/21 3:00 P M) Pulse Rate [55-90 bpm] 74 bpm 82 bpm 79 bpm (09/17/21 7:00 AM) (09/16/21 7:00 PM) (09/16/21 3:00 P M) Body Mass Index [18.5-24.99] 29.41 28.87 28. 39 *H* *H* *H* (09/10/21 2:39 PM) (08/20/21 4:15 PM) (08/20/21 1:15 PM) Blood Pressure [90-138/55-84 136/71 mm Hg 136/71 mm Hg 130 /64 mm Hg mm Hg] (09/17/21 8:07 AM) (09/17/21 7:00 AM) (09/16/21 7:00 P M) Respiratory Rate [16-30 18 br/min 18 br/min 18 br/mi n br/min] (09/17/21 9:54 AM) (09/17/21 8:07 AM) (09/17/21 7:00 A M) Temperature [96.8-100.4 DegF] 98.6 DegF 98.8 DegF 98 .9 DegF (09/17/21 7:00 AM) (09/16/21 7:00 PM) (09/16/21 3:00 P M) Liters per Minute 2 L/min 2 L/min 2 L/min (09/17/21 7:00 AM) (09/16/21 7:00 PM) (09/16/21 3:00 P M) Mode of Delivery (Oxygen) Nasal cannula Nasal cannula Nasal cannula (09/17/21 7:00 AM) (09/16/21 7:00 PM) (09/16/21 3:00 P M) Blood pressure sites Arm, right Arm, right Arm, right (09/17/21 7:00 AM) (09/16/21 7:00 PM) (09/16/21 3:00 P M) Temperature Route Oral Oral Oral (09/17/21 7:00 AM) (09/16/21 7:00 PM) (09/16/21 3:00 P M) Dry Weight 85.4 kg (08/20/21 4:15 PM) Weight Obtained Via Bed scale (09/10/21 2:39 PM) Social History Social History Type Response Smoking Status 10 or more cigarettes (1/2 p ack or more)/day in last 30 days entered on: 02/04/19 Sex Male
--- OUTSIDE RECORDS SUMMARY | 2022-03-14 03:18 | XMS_ITS | Continuity of Care Document ---
:1975 Author Organization [facility] Address [address] [place] [address]- Care Team Providers Name Role Phone Jany Baig DO Primary Care Physician Encounter [facility] Date(s): 08/28/19 - 09/04/19 [facility] [id number] [place] [address]- [facility] Attending Physician: Jany Baig DO Allergies, Adverse [...] in the past and had GI side [id number] advised not to take d/t underlying liver [...] acel (oldterm) 08/02/12 Given 1Result Comment: [04/29/2017] [id number] Note: [id number] Note: 3 [id number] Note: #2 Medications chantix 1mg tablet 1 tablet = 1 mg, By Mouth, 2 times a day, with a full glass of water, continue for total of 12 wks, # 56 tablet, 1 Refills, Maintenance, 08/24/19 14:54:00 EDT, Tablet, [facility], 175, cm, 08/24/19 14:14:00 EDT, Height, 81.2, kg, 02/04/19 1:40... Start Date: 08/24/19 Status: OrderedCo Q-10 100 mg oral capsule 1 capsule, By Mouth, 3 times a day, # 90 capsule, 11 Refills, Maintenance, 06/16/19 12:41:00 EST, [facility], 175, cm, 02/06/19 7:59:00 EDT, Height, [...] 2 Refills, Maintenance, 09/04/19 13:01:00 EDT, Suspension, [id number], 175, cm, 08/24/19 14:14:00 EDT, Height, 81.2, kg, 02/04/19 1:40:00 EDT, Dry Weight Start Date: 09/04/19 Status: Orderedfluticasone 50 mcg/inh nasal spray See Instructions, SPRAY 1 SPRAY INTO EACH NOSTRIL TWICE A DAY, # 16 Gm, 3 Refills, Maintenance, [facility], 30, SPRAY 1 SPRAY INTO EACH NOSTRIL TWICE A DAY, 175, cm, 02/06/19 7:59:00 EDT, Height, 81.2, kg, 02/04/19 1:40:00 EDT, Dry Weight Start Date: 06/16/19 Status: Orderedfolic acid 1 mg oral tablet See Instructions, TAKE 1 TABLET BY MOUTH ONCE A DAY, # 30 tablet, Refills 1, Maintenance, Instructions Replace Required Details, Route to Pharmacy Electronically, [facility], 175, cm, 06/20/19 12:00:00 EST, Height, 81.2, kg, 02/04/19 1:40:00 E... Start Date: 06/20/19 Status: Orderedfolic acid 1 mg oral tablet 1, tablet, By Mouth, Daily, # 30 tablet, Refills 1, Tot. Refills 0, Maintenance, 05/29/19 17:32:04 EST, Instructions Replace Required Details, Route to Pharmacy Electronically, [facility], 175,cm, 02/06/19 7:59:26 EDT, Height, [...] ANXIETY, # 60 tablet,1 Refills, Acute, [facility], 175, cm, 06/20/19 12:00:00 EST, Height, 81.2, kg, 02/04/19 1:40:00 EDT, Dry Weight Start Date: 07/12/19 Status: Orderedlactulose 10 gm/15 ml oral syrup 30 mL = 20 Gm, By Mouth, 3 times a day, PRN Other, for 30 days, PRN to acheive 3-4 BMs per day, # 3,000 mL, 11 Refills, Acute 06/16/20 12:33:00 EST, 06/22/19 12:33:00 EST, Syrup, [facility], resent from 10/04/17, 30 mL [...] Refills, Maintenance, 08/24/19 18:00:00 EDT, Ointment, [facility], 1 application Topically 3 times [...] Refills, Maintenance, 06/26/19 20:32:00 EST, Tablet, [facility], 175, cm, 06/20/19 12:00:00 EST, Height, 81.2, kg, 02/04/19 1:40:00 EDT, Dry Weight Start Date: 06/26/19 Status: Orderedsertraline 50 mg oral tablet 1 tablet, By Mouth, Daily, TAKE ALONG WITH A 100MG TABLET to equal 150mg daily, # 90 tablet, 0 Refills, Maintenance, 06/22/19 12:32:00 EST, [facility], 175, cm, 06/20/19 12:00:00 EST, Height, 81.2, kg, 02/04/19 1:40:00 EDT, Dry Weight Start Date: 06/22/19 Status: MxkqmbiBfn-S-Nqky oral tablet 1 tablet, By Mouth, Daily, # 30 tablet, 11 Refills, Maintenance, 06/16/19 12:42:00 EST, [facility], 30, TAKE 1 TABLET BY [...] 2 TABLETS BY MOUTH AT BEDTIME, [facility] Start Date: 01/02/19 Status: OrderedVitamin B1 100 mg oral tablet 1, tablet, By Mouth, Daily, # 90 tablet, Refills 3, Tot. Refills 0, Acute, 06/16/19 12:42:00 EST, Route to Pharmacy Electronically, [facility], 175, cm, 02/06/19 7:59:00 EDT, Height, 81.2, kg, 02/04/19 1:40:00 EDT, Dry Weight Start Date: 06/16/19 Status: OrderedXifaxan 550 mg oral tablet 1 tablet, By Mouth, 2 times a day, # 60 tablet, 0 Refills, Maintenance, 08/14/19 16:54:00 EST, [facility], 175, cm, 06/20/19 12:00:00 EST, Height, [...] Active Vitamin D insufficiency(Confirmed) 08/16/12 Active 1refer mhoql0wtf HEP C,b; immune HEP A,3r/o nndpslwvewlezaoh8pvwzil4zfvuaqvq counseling6? gnhelvu1hin RF ANCA,normal immunofixation,8lumbar puncture November 2011,neg lymenormal IGA neg SSA ,SSBnormal methylmalonic acid homocyseine9 legally blind;hnhnqzbfyr91tahvew echo November 2014 Social History Social History Type Response Smoking Status 10 or more cigarettes (1/2 p ack or more)/day in last 30 days entered on: 02/04/19 Sex
--- OUTSIDE RECORDS SUMMARY | 2022-03-14 03:18 | XMS_ITS | Continuity of Care Document ---
:1975 Author Organization [facility] Address [address] [place] [id number]- Care Team Providers Name Role Phone Jany Baig DO Primary Care Physician Encounter [facility] Date(s): 08/30/20 - 08/31/[address] [address]- Encounter Diagnosis Cirrhosis (Final) - 08/30/20 Discharge Disposition: A-D/C Home Attending Physician: Jaylan Dumont MD Admitting Physician: Jaylan Dumont MD Referring Physician: Not on Staff, Referring [...] in the past and had GI side jyopscv7tq advised not to take d/t underlying liver [...] 08/02/12 Given 1Admin Note: #22Result Comment: [04/29/2017] [id number] Note: [id number] Admin Note: 3 RDINJ Medications baclofen 10 mg oral tablet 10 mg, 1, tablet, By Mouth, 3 times a day, pt needs to schedule appt, # 90 tablet, Refills 0, Tot. Refills 0, Maintenance, 08/29/20 13:57:00 EDT, Route to Pharmacy Electronically, [facility], 175, cm, 04/02/20 0:35:00 EDT, Height, 100, kg, 10/... Start Date: 08/29/20 Stop Date: 09/28/20 Status: Orderedchantix 1mg tablet 1 tablet, By Mouth, 2 times a day, for 12 week(s), neeeds to schedule appt, # 56 tablet, 0 Refills, Acute 09/18/20 11:11:00 EDT, 06/26/20 11:11:00 EST, [facility], 175, cm, 04/02/20 0:35:00 EDT, Height, [...] 2 Refills, Maintenance, 11/02/19 9:02:00 EDT, Suspension, [facility] #[id number], 175, cm, 08/24/19 14:14:00 EDT, Height, 81.2, kg, 02/04/19 1:40:00 EDT, Dry Weight Start Date: 11/02/19 Status: Orderedfluticasone 50 mcg/inh nasal spray See Instructions, SPRAY 1 SPRAY INTO EACH NOSTRIL TWICE A DAY, # 16 Gm, 5 Refills, 07/09/20 11:38:00EST, [facility], 30, SPRAY 1 SPRAY INTO EACH NOSTRIL TWICE A DAY, 175, cm, 04/02/20 0:35:00 EDT, Height, 100, kg, 04/02/20 0:35:00 EDT, Dry We... Start Date: 07/09/20 Status: Orderedgabapentin 300 mg oral capsule 600 mg, Capsule, By Mouth, 08/31/20 9:00:00 EDT Start Date: 08/31/20 Stop Date: 08/31/20 Status: Completedgabapentin 300 mg oral capsule 600 mg, Capsule, By Mouth, 08/31/20 13:00:00 EDT Start Date: 08/31/20 Stop Date: 08/31/20 Status: Completedgabapentin 600 mg oral tablet 1 tablet, By Mouth, 4 times a day, # 120 tablet, 0 Refills, Maintenance, 08/07/20 12:03:00 EST, [facility], 175, cm, 04/02/20 0:35:00 EDT, Height, 100, kg, 04/02/20 0:35:00 EDT, Dry Weight Start Date: 08/07/20 Status: OrderedhydrOXYzine hydrochloride 25 mg oral tablet 1 TO 2 TABLETS, By Mouth, 3 times a day, PRN NEEDED FOR ANXIETY (VIAL), pt needs to schedule appt, # 60 tablet, 1 Refills, Maintenance, 07/18/20 17:31:00 EST, [facility], 175, cm, 04/02/20 0:35:00 EDT, Height, 100, kg, 04/02/20 0:35:00 EDT,... Start Date: 07/18/20 Status: Orderedlactulose 10 gm/15 ml oral syrup 30 mL = 20 Gm, By Mouth, 3 times a day, PRN Other, for 30 days, PRN to acheive 3-4 BMs per day fill in prefilled syringes, # 3,000 mL, 11 Refills, Acute 11/25/20 16:37:00 EDT, 12/01/19 16:37:00 EDT, Syrup, [facility], re sent from 10/04/17, 30... Start Date: 12/01/19 Stop Date: 11/25/20 Status: Orderedmelatonin 3 mg oral tablet 1 tablet = 3 mg, By Mouth, Daily at bedtime, PRN for insomnia, # 60 tablet, 4 Refills, Maintenance, 07/18/20 17:30:00 EST, Tablet, [facility], 175, cm, 04/02/20 0:35:00 EDT, Height, 100, kg, 04/02/20 0:35:00 EDT, Dry Weight Start Date: 07/18/20 Status: Orderedmupirocin 2% topical ointment See Instructions, APPLY TOPICALLY THREE TIMES DAILY (APPLY A THIN FILM), # 22 Gm, 0 Refills, Maintenance, 04/16/20 14:45:00 EST, [facility] #[id number], 8, APPLY TOPICALLY THREE TIMES DAILY [...] 1 Refills, Maintenance, 10/06/19 15:57:00 EDT, Tablet, [facility], 175, cm, 08/24/19 14:14:00 EDT, Height, 81.2, kg, 02/04/19 1:40:00 EDT, Dry Weight Start Date: 10/06/19 Status: Orderedsertraline 50 mg oral tablet 1 tablet, By Mouth, Daily, TAKE ALONG WITH A 100MG TABLET to equal 150mg daily, # 90 tablet, 1 Refills, Maintenance, 10/06/19 15:57:00 EDT, [facility], 175, cm, 08/24/19 14:14:00 EDT, Height, 81.2, kg, 02/04/19 1:40:00 EDT, Dry Weight Start Date: 10/06/19 Status: Orderedsildenafil 50 mg oral tablet 1 tablet = 50 mg, By Mouth, Daily, PRN erectile dysfunction, 1 hour before sexual activity, # 6 tablet, 5 Refills, Maintenance, 03/11/20 14:37:00 EDT, Tablet, [facility] #[id number], 175, cm, 08/24/19 14:14:00 EDT, Height, 81.2, kg, 02/04/19 1:40:00 EDT,... Start Date: 03/11/20 Status: GjcumysHhe-W-Culm oral tablet See Instructions, TAKE 1 TABLET BY MOUTH ONCE A DAY, # 30 tablet, 10 Refills, Maintenance, [facility], 28, TAKE 1 TABLET BY MOUTH [...] Replace Required Details, Route to Pharmacy Electronically, [facility], 175, cm, 04/02/20 0:35:00 EDT, Height, 100,... Start Date: 08/07/20 Status: OrderedVitamin B1 100 mg oral tablet 1, tablet, By Mouth, Daily, # 90 tablet, Refills 3, Tot. Refills 3, Maintenance, 09/27/19 8:51:00 EDT, Route to Pharmacy Electronically, [facility], 175, cm, 08/24/19 14:14:00 EDT, Height, 81.2, kg, 02/04/19 1:40:00 EDT, Dry Weight Start Date: 09/27/19 Status: OrderedXifaxan 550 mg oral tablet 1 tablet, By Mouth, 2 times a day, # 60 tablet, 0 Refills, Maintenance, 04/16/20 14:45:00 EST, [facility]/pharmacy #[id number], 175, cm, 04/02/20 0:35:00 EDT, Height, [...] Active Vitamin D insufficiency(Confirmed) 08/16/12 Active 1refer zmyrp8pwy HEP C,b; immune HEP A,3r/o hhljudidzqsougyl1mivvma7jvwazyiq counseling6? vbatcfe8fpk RF ANCA,normal immunofixation,8lumbar puncture November 2011,neg lymenormal IGA neg SSA ,SSBnormal methylmalonic acid homocyseine9 legally blind;uxzubqdbke69dfsflq echo November 2014 Results Radiology Reports Exam Date Time Procedure Performing Provider Status 08/30/20 9:49 PM Chest Portable Fitting , Juwan; Tanna (Verified) Notes:(Chest Portable) Reason For Exam: Shortness of BreathRESULT: Chest Portable Chest Portable Hx of Present Illness: Pt fell on wednesday + head strike, went to [facility] and they told him he has fluid on his brain . Pt has eqaul strength bilaterally, legally blind, now c o headache since fall.; Reason: Shortness of Breath; Clinical Question(s): CHF COMPARISON: None. FINDINGS: LINES AND TUBES: None. LUNGS AND PLEURA: Low lung volumes with mild basilar atelectasis. Lungs are otherwise clear with no consolidation. No pleural effusion. No pneumothorax. HEART, MEDIASTINUM AND DEEDEE: Heart is normal in size. Normal upper mediastinal and hilar contour. BONES AND SOFT TISSUES: No acute abnormality. IMPRESSION: No acute abnormality. WSN: [id number] Ordering Physician: Samantha Ling Dictated By: Gerard Sanchez MD Dictated Date/Time: 08/30/20 10:03 p Reviewed By: Gerard Sanchez MD Signed By: Gerard Sanchez MD Signed Date/Time: 08/30/20 10:03 pm Transcribed By: MIRAN Transcribed Date/Time: 08/30/20 10:00 pm Vital Signs Most recent to oldest 1 2 3 [Reference Range]: Height 178 cm 178 cm 178 cm (08/31/20 11:25 AM) (08/31/20 5:45 AM) (08/31/20 1: 07 AM) Weight 86.4 kg (08/31/20 1:07 AM) Oxygen Saturation [94-100 95 % 97 % 95 % %] (08/31/20 11:25 AM) (08/31/20 5:45 AM) (08/31/20 1: 07 AM) Pulse Rate [55-90 bpm] 93 bpm 79 bpm 79 bpm *H* (08/31/20 5:45 AM) (08/31/20 1:07 AM) (08/31/20 11:25 AM) Body Mass Index 27.27 [18.5-24.99] *H* (08/31/20 1:07 AM) Blood Pressure 129/76 mm Hg 118/88 mm Hg 120/80 mm Hg [90-138/55-84 mm Hg] (08/31/20 11:25 AM) (08/31/20 5:45 AM) ( 1:07 AM) Respiratory Rate [16-30 20 br/min 18 br/min 20 br/mi n br/min] (08/31/20 1:20 PM) (08/31/20 11:25 AM) (08/31/20 10 :51 AM) Temperature [96.8-100.4 98.4 DegF 98.0 DegF 98 DegF DegF] (08/31/20 11:25 AM) (08/31/20 5:45 AM) (08/31/20 1: 07 AM) Mode of Delivery (Oxygen) Room air Room air Room a ir (08/31/20 11:25 AM) (08/31/20 5:45 AM) (08/31/20 1: 07 AM) Blood pressure sites Arm, left Arm, right Arm, right (08/31/20 11:25 AM) (08/31/20 1:07 AM) (08/31/20 12 :06 AM) Temperature Route Oral Oral Oral (08/31/20 11:25 AM) (08/31/20 5:45 AM) (08/31/20 1: 07 AM) Dry Weight 84.9 kg (08/31/20 1:07 AM) Weight Obtained Via Bed scale (08/31/20 1:07 AM) Dry Weight Obtained Via Patient/family stated (08/31/20 1:07 AM) Social History Social History Type Response Smoking Status 10 or more cigarettes (1/2 p ack or more)/day in last 30 days entered on: 02/04/19 Sex
--- OUTSIDE RECORDS SUMMARY | 2022-03-14 03:18 | XMS_ITS | Continuity of Care Document ---
:1975 Author Organization [facility] Address [address] [place] [address]- Care Team Providers Name Role Phone Jany Baig DO Primary Care Physician Encounter [facility] Date(s): 11/28/21 - 12/05/21 [facility] [address] [place] [address]- Attending Physician: Jany Baig DO Allergies, Adverse [...] in the past and had GI side [id number] advised not to take d/t underlying liver [...] vaccine 03/01/20 Recorded hepatitis B adult vaccine3 9/17/13 Given Hepatitis B Vaccine (old term) 10/09/19 Recorded Hepatitis B Vaccine (old term)4 09/08/12 Given Hepatitis B Vaccine (old term) 08/09/12 Given tetanus/diphtheria/pertussis, acel(Tdap) 06/22/18 Given tetanus/diphtheria/pertussis, acel(Tdap) 11/25/15 Given pneumococcal 23-valent vaccine 03/16/15 Given Pneumococcal Vaccine (oldterm) 08/02/12 Given Tet/diphth/pertussis, acel (oldterm) 08/02/12 Given 1Result Comment: [04/29/2017] [id number] Note: [id number] Note: 3 [id number] Note: #2 Medications amLODIPine 5 mg oral tablet 5 mg, 1, tablet, By Mouth, Daily, # 30 tablet, Refills 5, Tot. Refills 5, Maintenance, 10/21/21 10:15:00 EDT, Route to Pharmacy Electronically, [facility], Partial fill upon patient request if the prescription is for a schedule II opioid drug.... Start Date: 10/21/21 Status: OrderedCo Q-10 100 mg oral capsule 1 capsule, By Mouth, 4 times a day, # 120 capsule, 6 Refills, [facility], 174, cm, 02/27/21 15:17:00 EDT, Height, 81, kg, 02/27/21 14:06:00 EDT, Dry Weight Start Date: 07/08/21 Status: Orderedfluticasone 50 mcg/inh nasal spray See Instructions, USE 1 SPRAY INTO EACH NOSTRIL TWICE A DAY, # 16 Gm, 5 Refills, [facility],30, USE 1 SPRAY INTO EACH NOSTRIL TWICE A DAY, 174, cm, 07/14/21 8:16:00 EST, Height, 81, kg, 02/27/21 14:06:00 EDT, Dry Weight Start Date: 08/04/21 Status: Orderedfolic acid 1 mg oral tablet 1 mg, 1, tablet, By Mouth, Daily, # 90 tablet, Refills 4, Tot. Refills 4, Maintenance, 10/27/21 10:40:00 EDT, Route to Pharmacy Electronically, [facility], Partial fill upon patient request if [...] 10/27/21 10:39:00 EDT, [facility], [facility] [...] Start Date: 10/22/21 Stop Date: 01/15/23 Status: UpwblzvQrx-O-Aaaq oral tablet 1 tablet, By Mouth, Daily, [...] Instructions Replace Required Details, Route toPharmacy Electronically, [facility], 170,... Start Date: 11/25/21 Status: OrderedVitamin B1 100 mg oral tablet 1, tablet, By Mouth, Daily, # 90 tablet, Refills 1, Route to Pharmacy Electronically, [facility], 174, cm, 02/27/21 15:17:00 EDT, Height, 81, kg, 02/27/21 14:06:00 EDT, Dry Weight Start Date: 06/16/21 Status: OrderedXifaxan 550 mg oral tablet 1 tablet, By Mouth, 2 times a day, # 60 tablet, 1 Refills, [facility], 170, cm, 11/05/21 11:11:00 EDT, Height, [...] Active Vitamin D insufficiency(Confirmed) 08/16/12 Active 1refer kmquo4obd HEP C,b; immune HEP A,3r/o bwzmrleswlzuviyc4xbzcrw6omjkuqox counseling6? ugsakwm8zqr RF ANCA,normal immunofixation,8lumbar puncture November 2011,neg lymenormal IGA neg SSA ,SSBnormal methylmalonic acid homocyseine9 legally blind;hxumiasaif81kkcqaz echo November 2014 Social History Social History Type Response Smoking Status 10 or more cigarettes (1/2 p ack or more)/day in last 30 days entered on: 02/04/19 Sex
--- OUTSIDE RECORDS SUMMARY | 2022-03-14 03:18 | XMS_ITS | Continuity of Care Document ---
:1975 Author Organization [facility] Address [address] [place] [address]- Care Team Providers Name Role Phone Jany Baig DO Primary Care Physician [place] [facility] [place]): 05/12/21 - 06/11/21 [facility] [address] [place] [address]- Allergies, Adverse Reactions, Alerts Substance Reaction Severity Status ibuprofen1 Hx of GI Bleed Active aspirin2 Hx GI Bleed Active Tylenol3 Cirrhosis Active NSAIDs Active 1pt advised not to take NSAIDs or Tylenol due to underlying liver disease. Also had GI side effects when took too much aspirin in the past.2pt took too much in the past and had GI side raviqtj8yw advised not to take d/t underlying liver [...] acel (oldterm) 08/02/12 Given 1Result Comment: [04/29/2017] [id number] Note: [id number] Note: 3 [id number] Note: #2 Medications baclofen 10 mg oral tablet 1, tablet, By Mouth, 3 times a day, # 90 tablet, Refills 0, Route to Pharmacy Electronically, [facility], 174, cm, 02/27/21 15:17:00 EDT, Height, 81, kg, 02/27/21 14:06:00 EDT, Dry Weight Start Date: 05/12/21 Status: Orderedchantix 1mg tablet 1 tablet, By Mouth, 2 times a day, # 56 tablet, 0 Refills, Acute, 11/22/20 16:13:00 EDT, [facility], 178, cm, 11/12/20 15:32:00 EDT, Height, 84.9, kg, 08/31/20 1:07:00 EDT, Dry Weight Start Date: 11/22/20 Status: OrderedCo Q-10 100 mg oral capsule See Instructions, TAKE 1 CAPSULE BY MOUTH FOUR TIMES DAILY, # 120 capsule, 7 Refills, Maintenance, [facility], 178, cm, 10/22/20 13:17:00 EDT, [...] 16 Gm, 5 Refills, Maintenance[facility], 30, USE 1 SPRAY INTO EACH NOSTRIL TWICE A DAY, 178, cm, 01/07/21 17:59:00 EDT, Height, 81.4, kg, 12/03/20 13:52:00 EDT, Dry Weight Start Date: 01/17/21 Status: Orderedgabapentin 600 mg oral tablet 1 tablet, By Mouth, 4 times a day, # 120 tablet, 0 Refills, [facility], 174, cm, 02/27/21 15:17:00 EDT, Height, 81, kg, 02/27/21 14:06:00 EDT, Dry Weight Start Date: 05/12/21 Status: OrderedhydrOXYzine hydrochloride 25 mg oral tablet 1 TO 2 TABLETS, By Mouth, 3 times a day, PRN NEEDED FOR ANXIETY (VIAL), # 60 tablet, 5 Refills, Maintenance, 06/02/21 16:17:00 EST, [facility], 174, cm, 02/27/21 15:17:00 EDT, Height, 81, kg, 02/27/21 14:06:00 EDT, Dry Weight Start Date: 06/02/21 Status: OrderedMelatonin 3 mg oral tablet 1 tablet, By Mouth, Daily at bedtime, PRN NEEDED FOR INSOMNIA (PACKAGE IN TRAY), # 60 tablet, 5 Refills, Maintenance, 06/02/21 16:17:00 EST, [facility], 28, 1 tablet By [...] 1 Refills, Maintenance, 10/06/19 15:57:00 EDT, Tablet, [facility], 175, cm, 08/24/19 14:14:00 EDT, Height, 81.2, kg, 02/04/19 1:40:00 EDT, Dry Weight Start Date: 10/06/19 Status: Orderedsertraline 50 mg oral tablet 1 tablet, By Mouth, Daily, TAKE ALONG WITH A 100MG TABLET to equal 150mg daily, # 90 tablet, 1 Refills, Maintenance, 10/06/19 15:57:00 EDT, [facility], 175, cm, 08/24/19 14:14:00 [...] 02/04/19 1:40:00 EDT,... Start Date: 03/11/20 Status: RrhklqsGxd-J-Gudp oral tablet See Instructions, TAKE 1 TABLET BY MOUTH ONCE A DAY, # 30 tablet, 10 Refills, [facility], TAKE 1 TABLET BY MOUTH ONCE A DAY, 175, cm, 04/02/20 0:35:00 EDT, Height, 100, kg, 04/02/20 0:35:00 EDT, Dry Weight Start Date: 07/18/20 Status: Orderedtranexamic acid 650 mg oral tablet 1 tablet = 650 mg, By Mouth, Daily, # 21 tablet, 0 Refills, Maintenance, 10/22/20 17:52:00 EDT, Tablet, [facility]/pharmacy #[id number], Partial fill upon patient request if the prescription is for a schedule II opioid drug., 178, cm, 10/22/20 13:17:00 EDT, Height... Start Date: 10/22/20 Status: OrderedtraZODone 50 mg oral tablet See Instructions, TAKE 1 TO 2 TABLETS BY MOUTH AT BEDTIME (ONE DOSE IN VIAL), # 60 tablet, Refills 5, Instructions Replace Required Details, Route to Pharmacy Electronically, [facility], 174, cm, 02/11/21 12:09:00 EDT, Height, 86.6, kg, ... Start Date: 02/15/21 Status: OrderedVitamin B1 100 mg oral tablet 1, tablet, By Mouth, Daily, # 90 tablet, Refills 2, Tot. Refills 0, Acute, 09/05/20 17:32:00 EDT, Route to Pharmacy Electronically, [facility], 178, cm, 08/31/20 11:25:00 EDT, Height, 84.9, kg,08/31/20 1:07:00 EDT, Dry Weight Start Date: 09/05/20 Status: OrderedXifaxan 550 mg oral tablet 1 tablet, By Mouth, 2 times a day, # 60 tablet, 0 Refills, Maintenance, 04/16/20 14:45:00 EST, [facility]/pharmacy #[id number], 175, cm, 04/02/20 0:35:00 EDT, [...] Active Vitamin D insufficiency(Confirmed) 08/16/12 Active 1refer hlgee4xrq HEP C,b; immune HEP A,3r/o lagcuhisqoygrlae1uxufvw3aglszkcd counseling6? lotcklg2ypx RF ANCA,normal immunofixation,8lumbar puncture November 2011,neg lymenormal IGA neg SSA ,SSBnormal methylmalonic acid homocyseine9 legally blind;[id number] echo November 2014 Social History Social History Type Response Smoking Status 10 or more cigarettes (1/2 p ack or more)/day in last 30 days entered on: 02/04/19 Sex Male
--- OUTSIDE RECORDS SUMMARY | 2022-03-14 03:18 | XMS_ITS | Continuity of Care Document ---
:1975 Author Organization [facility] Address [address] [place] [address]- Care Team Providers Name Role Phone aJny Baig DO Primary Care Physician Encounter [facility] Date(s): 06/25/21 - 07/25/21 [facility] [address] [place] [address]- Allergies, Adverse Reactions, Alerts Substance Reaction Severity Status ibuprofen1 Hx of GI Bleed Active aspirin2 Hx GI Bleed Active Tylenol3 Cirrhosis Active NSAIDs Active 1pt advised not to take NSAIDs or Tylenol due to underlying liver disease. Also had GI side effects when took too much aspirin in the past.2pt took too much in the past and had GI side lwxvisi4zf advised not to take d/t underlying liver [...] acel (oldterm) 08/02/12 Given 1Result Comment: [04/29/2017] [id number] Note: [id number] Note: 3 [id number] Note: #2 Medications baclofen 10 mg oral tablet 1, tablet, By Mouth, 3 times a day, # 90 tablet, Refills 0, Route to Pharmacy Electronically, [facility], 174, cm, 02/27/21 15:17:00 EDT, Height, 81, kg, 02/27/21 14:06:00 EDT, Dry Weight Start Date: 07/08/21 Status: Orderedchantix 1mg tablet 1 tablet, By Mouth, 2 times a day, # 56 tablet, 0 Refills, Acute, 11/22/20 16:13:00 EDT, [facility], 178, cm, 11/12/20 15:32:00 EDT, Height, 84.9, kg, 08/31/20 1:07:00 EDT, Dry Weight Start Date: 11/22/20 Status: OrderedCo Q-10 100 mg oral capsule 1 capsule, By Mouth, 4 times a day, # 120 capsule, 6 Refills, [facility], 174, cm, 02/27/21 15:17:00 EDT, Height, 81, kg, 02/27/21 14:06:00 EDT, Dry Weight Start Date: 07/08/21 Status: Orderedfluticasone 50 mcg/inh nasal spray See Instructions, USE 1 SPRAY INTO EACH NOSTRIL TWICE A DAY, # 16 Gm, 5 Refills, Maintenance, [facility], 30, USE 1 SPRAY INTO EACH NOSTRIL TWICE A DAY, 178, cm, 01/07/21 17:59:00 EDT, Height, 81.4, kg, 12/03/20 13:52:00 EDT, Dry Weight Start Date: 01/17/21 Status: Orderedgabapentin 600 mg oral tablet 1 tablet, By Mouth, 4 times a day, # 120 tablet, 0 Refills, [facility], 174, cm, 02/27/21 15:17:00 EDT, Height, 81, kg, 02/27/21 14:06:00 EDT, Dry Weight Start Date: 07/08/21 Status: OrderedhydrOXYzine hydrochloride 25 mg oral tablet 1 TO 2 TABLETS, By Mouth, 3 times a day, PRN NEEDED FOR ANXIETY (VIAL), # 60 tablet, 0 Refills, [facility], 174, cm, 02/27/21 15:17:00 EDT, Height, 81, kg, 02/27/21 14:06:00 EDT, Dry Weight Start Date: 07/08/21 Status: Orderedlactulose 10 gm/15 ml oral syrup See Instructions, TAKE 30ML BY MOUTH THREE TIMES DAILY NEEDED TO ACHEIVE 3-4 BOWL MOVEMENTS PER DAY, # 3,000 mL, 10 Refills, [facility], 30, TAKE 30ML BY MOUTH THREE TIMES DAILY NEEDED TOACHEIVE 3-4 BOWL MOVEMENTS PER DAY, 174, cm, 02/12... Start Date: 07/02/21 Status: OrderedMelatonin 3 mg oral tablet 1 tablet, By Mouth, Daily at bedtime, PRN NEEDED FOR INSOMNIA (PACKAGE IN TRAY), # 60 tablet, 5 Refills, Maintenance, 06/02/21 16:17:00 EST, [facility], 28, 1 tablet By Mouth [...] 1 Refills, Maintenance, 10/06/19 15:57:00 EDT, Tablet, [facility], 175, cm, 08/24/19 14:14:00 EDT, Height, 81.2, kg, 02/04/19 1:40:00 EDT, Dry Weight Start Date: 10/06/19 Status: Orderedsertraline 50 mg oral tablet 1 tablet, By Mouth, Daily, TAKE ALONG WITH A 100MG TABLET to equal 150mg daily, # 90 tablet, 1 Refills, Maintenance, 10/06/19 15:57:00 EDT, [facility], 175, cm, 08/24/19 14:14:00 EDT, Height, 81.2, kg, 02/04/19 1:40:00 EDT, Dry Weight Start Date: 10/06/19 Status: Orderedsildenafil 50 mg oral tablet 1 tablet = 50 mg, By Mouth, Daily, PRN erectile dysfunction, 1 hour before sexual activity, # 6 tablet, 5 Refills, Maintenance, 03/11/20 14:37:00 EDT, Tablet, [facility]/pharmacy #[id number], 175, cm, 08/24/19 14:14:00 EDT, Height, 81.2, kg, 02/04/19 1:40:00 EDT,... Start Date: 03/11/20 Status: WqgwqjwXup-M-Szgo oral tablet 1 tablet, By Mouth, Daily, # 90 tablet, 9 Refills, [facility], 28, TAKE 1 TABLET BY MOUTH ONCE A DAY, 174, cm, 07/14/21 8:16:00 EST, Height, 81, kg, 02/27/21 14:06:00 EDT, Dry Weight Start Date: 07/22/21 Status: Orderedtranexamic acid 650 mg oral tablet 1 tablet = 650 mg, By Mouth, Daily, # 21 tablet, 0 Refills, Maintenance, 10/22/20 17:52:00 EDT, Tablet, [facility]/pharmacy #[id number], Partial fill upon patient request if the prescription is for a schedule II opioid drug., 178, cm, 10/22/20 13:17:00 EDT, Height... Start Date: 10/22/20 Status: OrderedtraZODone 50 mg oral tablet See Instructions, TAKE 1 TO 2 TABLETS BY MOUTH AT BEDTIME (ONE DOSE IN VIAL), # 60 tablet, Refills 0, Instructions Replace Required Details, Route to Pharmacy Electronically, [facility], 174, cm, 02/27/21 15:17:00 EDT, Height, 81, kg, 02/27/21... Start Date: 07/10/21 Status: OrderedtraZODone 50 mg oral tablet See Instructions, TAKE 1 TO 2 TABLETS BY MOUTH AT BEDTIME (ONE DOSE IN VIAL), # 60 tablet, Refills 5, Instructions Replace Required Details, Route to Pharmacy Electronically, [facility], 174, cm, 02/11/21 12:09:00 EDT, Height, 86.6, kg, ... Start Date: 02/15/21 Status: OrderedVitamin B1 100 mg oral tablet 1, tablet, By Mouth, Daily, # 90 tablet, Refills 1, Route to Pharmacy Electronically, [facility], 174, cm, 02/27/21 15:17:00 EDT, Height, 81, kg, 02/27/21 14:06:00 EDT, Dry Weight Start Date: 06/16/21 Status: OrderedXifaxan 550 mg oral tablet 1 tablet, By Mouth, 2 times a day, # 60 tablet, 0 Refills, Maintenance, 04/16/20 14:45:00 EST, [facility]/pharmacy #[id number], 175, cm, 04/02/20 0:35:00 [...] Active Vitamin D insufficiency(Confirmed) 08/16/12 Active 1refer ovjav1ldl HEP C,b; immune HEP A,3r/o ffbrymcyhquechee5jzzlea2jpwaczoq counseling6? ewwoxgr0yxq RF ANCA,normal immunofixation,8lumbar puncture November 2011,neg lymenormal IGA neg SSA ,SSBnormal methylmalonic acid homocyseine9 legally blind;osfcdnotbx21ocaegf echo November 2014 Social History Social History Type Response Smoking Status 10 or more cigarettes (1/2 p ack or more)/day in last 30 days entered on: 02/04/19 Sex Male
--- OUTSIDE RECORDS SUMMARY | 2022-03-14 03:18 | XMS_ITS | Continuity of Care Document ---
:1975 Author Organization [facility] Address [address] [place] [address]- Care Team Providers Name Role Phone Jany Baig DO Primary Care Physician Encounter [facility] [place](s): 02/16/20 - 03/17/20 [facility] [address] [place] [address]- [facility] Allergies, Adverse Reactions, Alerts Substance Reaction Severity Status ibuprofen1 Hx of GI Bleed Active aspirin2 Hx GI Bleed Active Tylenol3 Cirrhosis Active NSAIDs Active 1pt advised not to take NSAIDs or Tylenol due to underlying liver disease. Also had GI side effects when took too much aspirin in the past.2pt took too much in the past and had GI side ohknafi6je advised not to take d/t underlying liver [...] 08/02/12 Given 1Admin Note: #22Result Comment: [04/29/2017] [id number] Note: [id number] Admin Note: 3 RDINJ Medications baclofen 10 mg oral tablet 10 mg, 1, tablet, By Mouth, 3 times a day, # 90 tablet, Refills 4, Tot. Refills 4, Maintenance, 02/16/20 17:55:00 EDT, Route to Pharmacy Electronically, [facility], 175, cm, 08/24/19 14:14:00 EDT, Height, 81.2, kg, 02/04/19 1:40:00 EDT, Dry We... Start Date: 02/16/20 Stop Date: 07/15/20 Status: Orderedchantix 1mg tablet See Instructions, TAKE 1 TABLET BY MOUTH TWICE A DAY WITH A FULL GLASS OF WATER AND CONTINUE FOR A TOTAL OF 12 WEEKS, # 56 tablet, 0 Refills, Maintenance, 02/16/20 17:54:00 EDT, [facility], 175, cm, 08/24/19 14:14:00 EDT, Height, 81.2, kg, 08/... Start Date: 02/16/20 Status: OrderedCo Q-10 100 mg oral capsule 1 capsule, By Mouth, 4 times a day, # 120 capsule, 11 Refills, Maintenance, 11/21/19 10:36:00 EDT, [facility]/pharmacy #[id number], 175, cm, 08/24/19 14:14:00 EDT, Height, 81.2, kg, 02/04/19 1:40:00 EDT, Dry Weight Start Date: 11/21/19 Stop Date: 11/15/20 Status: OrderedEngerix-B 20 mcg/mL intramuscular suspension = 20 mcg, Intramuscular, Every 30 days, rpt at 1 and 6 months, # 1 mL, 2 Refills, Maintenance, 11/02/19 9:02:00 EDT, Suspension, [facility]/pharmacy #[id number], 175, cm, 08/24/19 14:14:00 EDT, Height, 81.2, kg, 02/04/19 1:40:00 EDT, Dry Weight Start Date: 11/02/19 Status: Orderedfluticasone 50 mcg/inh nasal spray See Instructions, SPRAY 1 SPRAY INTO EACH NOSTRIL TWICE A DAY, # 16 Gm, 5 Refills, 01/26/20 9:52:00 EDT, [facility], 30, SPRAY 1 SPRAY INTO EACH NOSTRIL TWICE A DAY, 175, cm, 08/24/19 14:14:00 EDT, Height, 81.2, kg, 02/04/19 1:40:00 EDT, Dry W... Start Date: 01/26/20 Status: Orderedgabapentin 600 mg oral tablet 1 tablet = 600 mg, By Mouth, 4 times a day, to replace prior script, # 120 tablet, 3 Refills, Maintenance, 01/26/20 14:28:00 EDT, Tablet, [facility], 175, cm, 08/24/19 14:14:00 EDT, Height, [...] EDT, 12/01/19 16:37:00 EDT, Syrup, [facility], re sent from 10/04/17, 30... Start [...] Maintenance, 10/06/19 16:16:00 EDT, Tablet, [facility], 175, cm, 08/24/19 14:14:00 EDT, Height, 81.2, kg, 02/04/19 1:40:00 EDT, Dry Weight Start Date: 10/06/19 Status: Orderedmupirocin 2% topical ointment See Instructions, APPLY TOPICALLY THREE TIMES DAILY (APPLY A THIN FILM), # 22 Gm, 0 Refills, Maintenance, 02/16/20 17:55:00 EDT, [facility], 8, APPLY TOPICALLY THREE TIMES DAILY (APPLY A THIN FILM), 175, cm, 08/24/19 14:14:00 EDT, Height, 81.2... Start Date: 02/16/20 Status: Orderedmupirocin 2% topical ointment See Instructions, APPLY TOPICALLY THREE TIMES DAILY (APPLY A THIN FILM), # 22 Gm, 0 Refills, Maintenance, 01/26/20 14:28:00 EDT, [facility], 8, APPLY TOPICALLY THREE TIMES DAILY [...] Maintenance, 10/06/19 15:57:00 EDT, Tablet, [facility], 175, cm, 08/24/19 14:14:00 EDT, Height, 81.2, kg, 02/04/19 1:40:00 EDT, Dry Weight Start Date: 10/06/19 Status: Orderedsertraline 50 mg oral tablet 1 tablet, By Mouth, Daily, TAKE ALONG WITH A 100MG TABLET to equal 150mg daily, # 90 tablet, 1 Refills, Maintenance, 10/06/19 15:57:00 EDT, [facility], 175, cm, 08/24/19 14:14:00 EDT, Height, 81.2, kg, 02/04/19 1:40:00 EDT, Dry Weight Start Date: 10/06/19 Status: Orderedsildenafil 50 mg oral tablet 1 tablet = 50 mg, By Mouth, Daily, PRN erectile dysfunction, 1 hour before sexual activity, # 6 tablet, 5 Refills, Maintenance, 03/11/20 14:37:00 EDT, Tablet, [facility]/pharmacy #[id number], 175, cm, 08/24/19 14:14:00 EDT, Height, 81.2, kg, 02/04/19 1:40:00 EDT,... Start Date: 03/11/20 Status: WvciaezQqj-H-Migf oral tablet 1 tablet, By Mouth, Daily, # 30 tablet, 11 Refills, Maintenance, 06/16/19 12:42:00 EST, [facility], 30, TAKE 1 TABLET BY MOUTH [...] 09/27/19 8:51:00 EDT, Route to Pharmacy Electronically, [facility], 175, cm, 08/24/19 14:14:00 EDT, Height, 81.2, kg, 02/04/19 1:40:00 EDT, Dry Weight Start Date: 09/27/19 Status: OrderedXifaxan 550 mg oral tablet 1 tablet, By Mouth, 2 times a day, # 60 tablet, 0 Refills, Maintenance, 10/30/19 16:57:00 EDT, [facility], 175, cm, 08/24/19 14:14:00 EDT, Height, 81.2, kg, 02/04/19 1:40:00 EDT, Dry Weight Start Date: 10/30/19 Status: OrderedXifaxan 550 mg oral tablet See Instructions, TAKE 1 TABLET BY MOUTH TWICE A DAY, # 60 tablet, 0 Refills, 02/16/20 17:54:00 EDT,[facility], 175, cm, 08/24/19 14:14:00 EDT, [...] Active Vitamin D insufficiency(Confirmed) 08/16/12 Active 1refer ghpuu9gcr HEP C,b; immune HEP A,3r/o epowdokttwxktooc8llluwr6ksmphghs counseling6? iuqsthm2qno RF ANCA,normal immunofixation,8lumbar puncture November 2011,neg lymenormal IGA neg SSA ,SSBnormal methylmalonic acid homocyseine9 legally blind;lduirxstpv83wctbwx echo November 2014 Social History Social History Type Response Smoking Status 10 or more cigarettes (1/2 p ack or more)/day in last 30 days entered on: 02/04/19 Sex
--- OUTSIDE RECORDS SUMMARY | 2022-03-14 03:19 | XMS_ITS ---
:1975 Author Care Team Providers Name Role Phone [facility] MED[facility] Primary Care Provider [phone] Allergies Code Code System Name Reaction Severity Status Onset 1191 RxNorm Aspirin ? ? Active ? 5640 RxNorm Ibuprofen ? ? Active ? Nsaids (Non-steroidal ? ? Active ? Anti-inflammatory Drug) [id number] RxNorm Tylenol ? ? Active ? Medications Name Status Start Date Stop Date ? ? acamprosate 333 mg tablet,delayed release Completed ? 09/27/2021 TK 2 TS PO TID amoxicillin 500 mg capsule Completed ? 02/10 TAKE 1 CAPSULE BY MOUTH EVERY 6 HOURS UNTIL FINISHED baclofen 10 mg tablet Active ? Not availa ble clonidine HCl 0.1 mg tablet Completed ? 09/12 coenzyme Q10 100 mg capsule Active ? Not available fluticasone propionate 50 mcg/actuation nasal Active ? Not available spray,suspension gabapentin 600 mg tablet Active ? Not daniel ilable hydroxyzine HCl 25 mg tablet Completed ? lactulose 10 gram/15 mL oral solution Active ? Not available levetiracetam 500 mg tablet Completed ? 09/12 TAKE 1 TABLET BY MOUTH TWO TIMES A DAY magnesium oxide 400 mg (241.3 mg magnesium) tablet Active ? Not available melatonin 3 mg tablet Completed ? 09/27/2021 mirtazapine 7.5 mg tablet Completed ? 2021 mupirocin 2 % topical ointment Completed ? 0 09/27/2021 naloxone 4 mg/actuation nasal spray Active ? Not available nicotine 14 mg/24 hr daily transdermal patch Completed ? 09/27/2021 1 PATCH TOPICALLY DAILY,X28 DAYS nicotine 21 mg/24 hr daily transdermal patch Completed ? 09/27/2021 1 PATCH TOPICALLY DAILY,X28 DAYS nicotine 7 mg/24 hr daily transdermal patch Completed ? 09/27/2021 1 PATCH TOPICALLY DAILY,X28 DAYS nystatin 100,000 unit/mL oral suspension Completed ? 09/27/2021 TAKE 6 ML BY MOUTH 4 TIMES A DAY X 5 DAYS oxcarbazepine 150 mg tablet Completed ? 09/12 oxcarbazepine 300 mg tablet Completed ? 09/12 oxcarbazepine 600 mg tablet Completed ? 09/12 pantoprazole 40 mg tablet,delayed release Active ? Not available sulfamethoxazole 800 mg-trimethoprim 160 mg tablet Completed ? 09/27/2021 TAKE 1 TABLET BY MOUTH TWICE A DAY FOR 10 DAYS Tab-A-Jesse 400 mcg tablet Active ? Not av ailable thiamine HCl (vitamin B1) 100 mg tablet Active ? Not available tramadol 50 mg tablet Completed ? 09/27/2021 TAKE 1 TABLET BY MOUTH TWICE A DAY NEEDED FOR PAIN tranexamic acid 650 mg tablet Completed ? TAKE 1 TABLET BY MOUTH DAILY. trazodone 50 mg tablet Active ? Not avail able varenicline 0.5 mg tablet Completed ? 2021 PLEASE SEE ATTACHED FOR DETAILED DIRECTIONS varenicline 1 mg tablet Completed ? 09/28/19 1 TABLET BY MOUTH 2 TIMES A DAY,INSTR:TO START AFTER 0.5 MG TAB S Xifaxan 550 mg tablet Active ? Not availa ble Notes: reviewed on scene on 09/27/21 Problems None recorded. Procedures Date Name Performed by ? ? Insertion of Stent into Vein Information not available Results Lab Results Date Name Specimen Result Interpretation Description Value Range Status Address ? 09/27/2021 Rapid SARS CoV ? Covid-19 positive ? ? Spr - Home: 2 Ag, QL IA, (Ref: Neg) [address] ? ? ? Control Visualized/Valid ? ? Spr - Home: [address], [facility] d ? ? ? Location SPR, ? ? Spr - H ome: [facility] [address] [facility] [place] [address], [place] [address], [id number] Past Encounters 09/27/2021 Covid-19; Tachycardia; Chest Pain Gerard Saha PA: [address], [place] [address], Ph. [phone] 02/10/2021 Wound Cellulitis; Pain in Right Knee [employer]: [address] [place] [address], Ph. [phone] Social History Tobacco Smoking Status Current Every Day Smoker Vaccine List None recorded. Plan of Care Patient Instructions Thank you for your visit with [facility] today. You may have had laboratory tests or cultures performed today. At th is time, we do not feel that you have an infection that requires hospitalization. However, infections can get worse, even with antibiotics. If you have worsening redne ss, pain or fever, go immediately to the Emergency Department. Please follow up w ith your primary care provider or with the specialist referral you were given, with in 12-24 hours to be re-examined. If you develop any new or worsening symptoms an d need after hours care, please go to nearest ER and/or call 911. If you have addition al concerns or develop a change in your condition between 8am-10pm, please call [facility] at [phone] to help navigate your care. Thank you for your v isit with [facility] today. You were seen today for treatment of a wound. Please [place] immediate medical attention if you develop increased pain, redness, or swel ling of your wound. Also, you should be evaluated if the wound becomes warm to t he touch, or if there is a cloudy, yellow-brown discharge from the wound. T here is always the possibility of a hidden tendon injury or foreign object in the w ound. If you have problems moving your arm or leg, or if you see red streaks up the ar m or leg, seek immediate medical attention. If you develop any new or worsening symp toms and need after hours care, please go to nearest ER and/or call 911. If you have additional concerns or develop a change in your condition between 8am-10pm, please call [facility] at [phone] to help navigate your care. Reminders Provider Appointments None recorded. ? ? Lab None recorded. ? ? Referral None recorded. ? ? Procedures None recorded. ? ? Surgeries None recorded. ? ? Imaging None recorded. ? ? Vitals 09/27/2021 07:59PM D02 New or Est Patient Blood Pressure 160/76 mm[Hg] 02/10/2021 06:35PM D02 New or Est Patient Blood Pressure 150/80 mm[Hg]
[2022-03-14 03:34] LABS: COVID-19 Test Negative (Negative)
[2022-03-14 03:38] LABS: Amphetamine Screen Urine Not Detected (Not Detect); Barbiturates, Urine Not Detected (Not Detect); Benzodiazepines Screen Urine POSITIVE (Not Detect); Cannabinoid Screen Urine Not Detected (Not Detect); Cocaine Screen Urine Not Detected (Not Detect); Fentanyl, urine Not Detected (Not Detect); Opiate Screen Urine Not Detected (Not Detect); Phencyclidine Screen Urine Not Detected (Not Detect)
[2022-03-14 03:39] LABS: Appearance Urine Clear; Color Urine Yellow; Glucose Urine UA Negative (Negative); Leukocyte Esterase Urine Negative (Negative); Nitrite Urine Negative (Negative); PH 6.5 (5.0-9.0); Specific Gravity - Urine 1.015 (1.005-1.025); Urine Blood Negative (Negative); Urine Ketones 15 mg/dL (Negative); Urine Protein Trace mg/dL (Neg-Trace)
--- NOTE | 2022-03-14 06:46 | PC.NURSE ---
Patient arrived to unit during the overnight shift. He states his mother and he wants to kill himself. He admitted to ETOH. Patient changed to hospital attire and 15min checks done. Patient is calm, cooperative and receptive to POC.
--- NOTE | 2022-03-14 12:04 | PC.NURSE ---
care team at bedside to assess pt
--- NOTE | 2022-03-14 12:11 | PC.NURSE ---
pt up to bathroom, ambulation steady and independent. pt denies SI, reports I never really wanted to hurt myself, I'm just going through a lot and I never processed my brothers deaths. A lot got brought up for me last night .
--- NOTE | 2022-03-14 13:51 | MHC.RECOVSUP ---
Recovery Support note: Patient is a 47 year old Marshallese speaking male who presented to [facility] ED due to alcohol use and vague SI. Patient was referred to this racebook writer by CARE Team. Patient reports daily drinking and is unable to specifically quantify his daily consumption. Patient stated he loses track after a six pack and several nips. Patient reports a desire to stop drinking however identifies his grief as a barrier. Patient reports he has been to detox many times and sees it as a revolving door. Patient expressed a desire to get into a senior living substance use program. This racebook writer discussed with patient the continuum of care from ATS to residential programs. Patient is interested in going to [facility] for ATS/CSS and stepping down into a residential sober living arrangement. Patient is also interested in connecting with [facility] and [facility] as discussed with the CARE Team. This racebook writer offered ATS referrals however patient declined, stating he must first go home to find his keys and take care of things at home. Patient is visually impaired however capable of reading large font. This racebook writer printed numbers for [facility] ATS, [facility] and the Recovery Support Team for patient. Encouraged patient to contact this racebook writer when he is ready to go to treatment. Discussed case with CARE Team.
--- NOTE | 2022-03-14 13:59 | MHC.CARE ---
Pt is a 47 y/o single, Syrian speaking, male who is previously known to the CARE Team through multiple ED visits, most often for ETOH or other substance use.? Today, pt arrived in the ED via EMS ETOH, with a complaint of SI with a plan to jump from a bridge.? Pt stated that a few hours prior to his arrival, he received a phone call from his father to let him know that his mother passed during a surgery.? Pt was grief stricken with this loss, was concerned for his Father, and has unprocessed grief from the loss of his brother.? Pt has been medically cleared and is being assessed by the CARE Team to determine appropriate treatment recommendations. Pt has no known hx of inpt hospitalizations or suicide attempts.? ?No known hx of substance use or suicide attempts.? Pt is alert and oriented x 4 and is assessed in his room in the behavioral health pod of the ED.? He is dressed in hospital attire, and appears older than his stated age.? He easily engages, and expresses that he is open to receiving any assistance with his unresolved grief and his alcohol use that is available to him.? He reports losing a brother and never really processing the grief, ??he recently lost his Mother and has concerns for his Father?s wellbeing as his parents were for 50 years and he is unsure how his father would handle the loss. His speech is unremarkable and he advises CARE Team that he is blind.? His affect is unremarkable and he appears to be fatigued and tired, stating he slept but not well.? He attributes his poor sleep to his intoxication.? He denies AVH, SI, HI, and self-harm urges.? He denies any hx of attempts.? Insight, judgement, memory, concentration and impulse control appear fair. Pt is interested in a referral to [facility] and to [facility].? CARE Team will submit a referral to [facility] and will contact [facility] to discuss his alcohol use and the availability of PHP.? CARE Team requested that Recovery meet with pt. Plan is for pt to be discharged with referrals, crisis information, ?and Recovery resources.? This disposition is discussed with and agreed upon by CARE Team supervisor shuttle preparation clinician Erika RODRÍGUEZ, ED attending physician, Dr. Foster, and Pt?s nurse LIBAN Caballero.?
[2022-03-14 14:00] VITALS: BP 150/68; PULSE 99; RESP 18; O2SAT 97
== END 2022-03-14 16:55 | disposition home or self-care (01) ==
PROVIDERS: Emergency Provider Emergency Medicine
DX: F10.220 Alcohol dependence with intoxication, uncomplicated (principal); Y90.9 Presence of alcohol in blood, level not specified; F43.20 Adjustment disorder, unspecified; F32.9 Major depressive disorder, single episode, unspecified; I10 Essential (primary) hypertension; H54.8 Legal blindness, as defined in USA; K74.60 Unspecified cirrhosis of liver; F19.10 Other psychoactive substance abuse, uncomplicated; F99 Mental disorder, not otherwise specified; F43.10 Post-traumatic stress disorder, unspecified; Z20.822 Contact with and (suspected) exposure to COVID-19
CPT/HCPCS: 80307; 81003; 87635; 99284

== ENCOUNTER 2023-06-11 11:22 | Emergency (ER) | payer OTHER, SELFPAY ==
[2023-06-11 11:26] VITALS: BP 164/98; PULSE 89; O2SAT 98
[2023-06-11 11:28] VITALS: BP 156/73; PULSE 93; RESP 18; TEMP 36.6; O2SAT 99; BMI 25.8
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
[2023-06-11 11:56] LABS: Basophils Percent Auto 0.6 % (0-2); Eosinophils Absolute Auto 0.3 X10*3/uL (0.0-0.4); Eosinophils Percent Auto 5.4 % (0-4); Hematocrit 33.7 % (42.0-52.0); Hemoglobin 11.2 g/dl (14.0-18.0); Imm Gran Abs Auto 0.01 X10*3/uL (0.00-0.03); Imm Gran Pct Auto 0.2 % (0.0-0.4); Lymphocytes Absolute Auto 1.2 X10*3/uL (1.2-4.9); Lymphocytes Percent Auto 26.8 % (20-40); MANUAL DIFF FLAG NO; Mean Corpuscular HGB Conc 33.2 g/dl (31.0-36.0); Mean Corpuscular Hemoglobin 30.8 pg (27.0-33.0); Mean Corpuscular Volume 92.6 fL (80.0-98.0); Monocytes Absolute Auto 0.6 X10*3/uL (0.1-1.2); Monocytes Percent Auto 12.7 % (2-11); Neutrophils Absolute Auto 2.5 x10*3/uL (2.0-8.3); Neutrophils Percent Auto 54.3 % (45-73); Red Blood Count 3.64 X10*6/uL (4.60-5.80); Red Cell Distribution Width 14.8 % (11.0-16.0); White Blood Count 4.6 X10*3/uL (4.8-10.8)
[2023-06-11 11:57] LABS: Platelet Count 93 X10*3/uL (160-400)
[2023-06-11 12:12] LABS: Anion Gap 11 (12-20); Blood Urea Nitrogen 11 mg/dL (9-16); Calcium 8.8 mg/dL (8.4-10.2); Carbon Dioxide 23 mmol/L (22-29); Chloride 108 mmol/L (96-108); Estimated Glomerular Filt Rate > 60; Glucose Random 98 mg/dL (60-115); Potassium 3.8 mmol/L (3.3-5.1); Sodium 138 mmol/L (135-145)
[2023-06-11 12:20] LABS: Alanine Aminotransferase 25 U/L (0-40); Albumin Level 2.9 g/dL (3.5-5.0); Alkaline Phosphatase 151 U/L (39-117); Aspartate Amino Transferase 51 U/L (5-37); Bilirubin Direct 0.6 mg/dL (0.0-0.5); Bilirubin Total 1.5 mg/dL (0.0-1.0); Total Protein 6.8 g/dL (6.5-8.0)
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
[2023-06-11 12:38] VITALS: BP 124/73; PULSE 77; RESP 16; TEMP 36.5; O2SAT 99
== END 2023-06-11 13:33 | disposition home or self-care (01) ==
PROVIDERS: Emergency Provider Emergency Medicine
DX: T69.9XXA Effect of reduced temperature, unspecified, initial encounter (principal); X31.XXXA Exposure to excessive natural cold, initial encounter; Y93.89 Activity, other specified; Y92.9 Unspecified place or not applicable; Y99.9 Unspecified external cause status; Z99.3 Dependence on wheelchair
CPT/HCPCS: 36415; 80048; 80076; 82550; 85025; 99283; 99284

== ENCOUNTER 2023-06-12 21:40 | Emergency (ER) | payer OTHER, SELFPAY ==
[2023-06-12 22:23] VITALS: BMI 25.2
[2023-06-12 22:27] VITALS: BP 133/83; PULSE 64; RESP 18; TEMP 36.6; O2SAT 98
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
[2023-06-13 03:47] VITALS: BP 142/78; PULSE 97; RESP 17; TEMP 36.7; O2SAT 98
--- NOTE | 2023-06-13 08:27 | PC.NURSE ---
assumed care of pt at 0700. pt sleeping on stretcher soundly. woken up to be discharged. pt sts he does not have a ride home and was told by his provider that if he stayed the night we would find him a ride home in the morning. pt CIWA 0. discharged, attempting to find ride home for pt.
== END 2023-06-13 10:53 | disposition home or self-care (01) ==
PROVIDERS: Emergency Provider Emergency Medicine
DX: F10.129 Alcohol abuse with intoxication, unspecified (principal); Y90.8 Blood alcohol level of 240 mg/100 ml or more
CPT/HCPCS: 99282; 99284

== ENCOUNTER 2023-08-11 10:35 | Outpatient (RCR) | payer OTHER, SELFPAY | END 2024-01-07 12:29 | disposition home or self-care (01) | LOC: HO.WCC 10:35 | PROVIDERS: Visit Provider Surgery | DX: S71.111A Laceration without foreign body, right thigh, initial encounter (principal); F10.11 Alcohol abuse, in remission; Z79.899 Other long term (current) drug therapy | CPT/HCPCS: 17250 ==

== ENCOUNTER 2023-12-15 19:55 | Emergency (ER) | payer OTHER, SELFPAY ==
[2023-12-15] VITALS (10 sets, daily range): BP systolic 105–189; BP diastolic 54–76; PULSE 70–114; RESP 15–20; TEMP 36.8; O2SAT 95–98; BMI 26.7
--- NOTE | 2023-12-15 20:05 | PC.NURSE ---
pt has non controlled meds placed with belongings in bh pod (trazodone, Xifaxan Hydroxyzine, Paroxetine, Furosemide, Baclofen, Campral, Folic Acid, Pantoprazole, Lovenox). Controlled med - Gabapentin 300mg (2 tablets) to be brought to pharmacy in AM placed in a pharmacy medication bag at this time.
[2023-12-15] MEDS: diphenhydrAMINE HCL 50 MG/ML VIAL IM (20:10)
[2023-12-15] MEDS: LORazepam 2 MG/ML VIAL IM (20:10)
[2023-12-15] MEDS: Haloperidol Lactate 5 MG/ML VIAL IM (20:10)
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
[2023-12-15 20:39] LABS: MANUAL DIFF FLAG NO
[2023-12-15 20:41] LABS: Basophils Percent Auto 0.8 % (0-2); Eosinophils Absolute Auto 0.1 X10*3/uL (0.0-0.4); Eosinophils Percent Auto 3.7 % (0-4); Hematocrit 32.7 % (42.0-52.0); Hemoglobin 10.8 g/dl (14.0-18.0); Lymphocytes Percent Auto 26.7 % (20-40); Mean Corpuscular Hemoglobin 30.4 pg (27.0-33.0); Mean Corpuscular Volume 92.1 fL (80.0-98.0); Mean Platelet Volume 10.2 fL (9.4-12.4); Monocytes Absolute Auto 0.5 X10*3/uL (0.1-1.2); Monocytes Percent Auto 12.6 % (2-11); Neutrophils Absolute Auto 2.2 x10*3/uL (2.0-8.3); Neutrophils Percent Auto 56.2 % (45-73); Red Blood Count 3.55 X10*6/uL (4.60-5.80); White Blood Count 3.8 X10*3/uL (4.8-10.8)
[2023-12-15 20:42] LABS: Platelet Count 89 X10*3/uL (160-400)
--- OUTSIDE RECORDS SUMMARY | 2023-12-15 20:44 | XMS_ITS | Continuity of Care Document ---
Author Organization [facility] Address [address] [place] [address]- Care Team Providers Care It Help Desk Associate Name Role Phone Jany Baig DO Primary Care Physician ( [phone] [place] [facility] [place]23 [place] 10/[place]/23 [facility] [address] [place] [address]- Allergies, Adverse Reactions, Alerts Substance Reaction Severity Status ibuprofen 1 Hx of GI Bleed Active aspirin 2 Hx GI Bleed Active Tylenol 3 Cirrhosis Active NSAIDs Active 1pt advised not to take NSAIDs or Tylenol due to underlying liver disease. Also had GI side effects when took too much aspirin in the past. 2pt took too much in the past and had GI side effects 3pt advised not to take d/t underlying liver disease Immunizations Given and Recorded Vaccine Date Status Refusal Reason influenza virus vaccine, inactivated 1 04/09/22 Gi cleopatra influenza virus vaccine, inactivated 03/10/21 Nikhil rded influenza virus vaccine, inactivated 03/01/20 Nikhil rded influenza virus vaccine, inactivated 05/01/19 Nikhil rded influenza virus vaccine, inactivated 02/25/18 Nikhil rded influenza virus vaccine, inactivated 02/12/18 Nikhil rded influenza virus vaccine, inactivated 2 04/29/17 Gi cleopatra influenza virus vaccine, inactivated 04/15/16 Give n influenza virus vaccine, inactivated 03/16/15 Give n influenza virus vaccine, inactivated 03/12/14 Give n influenza virus vaccine, inactivated 3 02/28/13 Gi cleopatra SARS-CoV-2 (COVID-19) mRNA-1273 vaccine 04/08/21 R ecorded SARS-CoV-2 (COVID-19) mRNA-1273 vaccine 03/10/21 R ecorded hepatitis B adult vaccine 03/01/20 Recorded hepatitis B adult vaccine 4 02/28/13 Given Hepatitis B Vaccine (old term) 10/09/19 Recorded Hepatitis B Vaccine (old term) 5 09/08/12 Given Hepatitis B Vaccine (old term) 08/09/12 Given tetanus/diphtheria/pertussis, acel(Tdap) 06/22/18 Given tetanus/diphtheria/pertussis, acel(Tdap) 11/25/15 Given pneumococcal 23-valent vaccine 03/16/15 Given Pneumococcal Vaccine (oldterm) 08/02/12 Given Tet/diphth/pertussis, acel (oldterm) 08/02/12 Give n 1Result Comment: [facility]: 30511-245-13 2Result Comment: [04/29/2017] 17765-814-36 3Admin Note: FLUARIX 4Admin Note: 3 RDINJ 5Admin Note: #2 Medications acamprosate 333 mg oral delayed release tablet 2 tablet = 666 mg, By Mouth, 3 times a day, # 180 tablet, 1 Refills, Maintenance, 07/28/23 11:04:00EST, EC Tablet, [facility], Partial fill upon patient request if the prescription is for a schedule II opioid drug., 175, cm, 07/28/23 9:11:0... Start Date: 07/28/23 Stop Date: 09/26/23 Status: Ordered acamprosate 333 mg oral delayed release tablet 2 tablet = 666 mg, By Mouth, 3 times a day, Maintenance, 07/15/23 13:20:00 EST, Partial fill upon patient request if the prescription is for a schedule II opioid drug. Start Date: 07/15/23 Status: Ordered amLODIPine 5 mg oral tablet 1 tablet, By Mouth, Daily, ^1R1., # 30 tablet, 2 Refills, Maintenance, 07/28/23 11:06:00 EST, [facility], 175, cm, 07/28/23 9:11:00 EST, Height, 61.3, kg, 07/12/23 23:27:00 EST, Dry Weight Start Date: 07/28/23 Status: Ordered amLODIPine 5 mg oral tablet 1 tablet, By Mouth, Daily, ^1R1., # 30 tablet, 2 Refills, Maintenance, 06/02/23 8:00:00 EST, [facility], 175, cm, 03/22/23 6:50:00 EDT, Height, 77.5, kg, 03/20/23 11:30:00 EDT, Dry Weight Start Date: 06/02/23 Status: Ordered baclofen 10 mg oral tablet 10 mg, 1, tablet, By Mouth, 3 times a day, Maintenance, 07/15/23 13:19:00 EST, Partial fill upon patient request if the prescription is for a schedule II opioid drug. Start Date: 07/15/23 Status: Ordered baclofen 10 mg oral tablet 10 mg, 1, tablet, By Mouth, 3 times a day, # 90 tablet, Refills 2, Tot. Refills 2, Maintenance, 07/28/23 11:10:00 EST, Route to Pharmacy Electronically, [facility], Partial fill upon patient request if the prescription is for a schedule II o... Start Date: 07/28/23 Status: Ordered calcium (as carbonate)-vitamin D 500 mg-400 intl units oral tablet 1 tablet, By Mouth, Daily, Maintenance, 07/15/23 13:19:00 EST, Partial fill upon patient request ifthe prescription is for a schedule II opioid drug. Start Date: 07/15/23 Status: Ordered Calcium Carbonate-Vit D 500 mg/400IU Calcium Carbonate-Vit D 500 mg/400IU, See Instructions, # 30 each, Refills 3, Tot. Refills 3, Maintenance, Take one tablet by mouth daily, 07/28/23 11:08:00 EST, Supply, 175, cm, 07/28/23 9:11:00 EST, Height, 61.3, kg, 07/12/23 23:27:00 EST, Dry Weight Start Date: 07/28/23 Status: Ordered Compression Stockings See Instructions, # 4 each, Refills 2, Tot. Refills 2, Maintenance, surgical, calf length 20-30 mm Hg M79.89 M79.606, 01/06/22 10:58:00 EDT, Supply Start Date: 01/06/22 Status: Ordered Cotton gauze roll 4 inches x 12 feet Cotton gauze roll 4 inches x 12 feet, See Instructions, # 12 each, Refills 1, Tot. Refills 1, Maintenance, Cotton gauze roll 4 inches x 12 feet Use for wound care, delayed wound Right hip. T14.8XXD, 07/30/23 16:05:00 EST, Supply Start Date: 07/30/23 Status: Ordered Diapers See Instructions, # 252 each, Refills 11, Tot. Refills 11, Maintenance, Aduld Adjustable Pullups SzL/XL use 6 daily per 6 wk period RAFI 99 mo n39.48, 11/13/22 11:18:00 EDT, Compound Start Date: 11/13/22 Status: Ordered diclofenac 1% topical gel See Instructions, APPLY TOPICALLY TO AFFECTED AREA(S) FOUR TIMES A DAY NEEDED FOR PAIN (BULK), #100 Gm, 12 Refills, Maintenance, 07/28/23 11:06:00 EST, [facility], 28, APPLY TOPICALLY TO AFFECTED AREA(S) FOUR TIMES A DAY NEEDED FOR PA... Start Date: 07/28/23 Status: Ordered Disposable Underpads n39.498 Disposable Underpads n39.498, See Instructions, # 84 each, Refills 11, Tot. Refills 11, Maintenance, 2 daily per 6 wk period, 11/13/22 12:53:00 EDT, Compound Start Date: 11/13/22 Status: Ordered Eucerin Eczema Relief topical cream 1 application, Topically, 2 times a day, Maintenance, 07/15/23 13:20:00 EST, Partial fill upon patient request if the prescription is for a schedule II opioid drug. Start Date: 07/15/23 Status: Ordered Flonase Allergy Relief 50 mcg/inh nasal spray 1 sprays = 50 mcg, Nares, Both, 2 times a day, Maintenance, 07/15/23 13:21:00 EST, Partial fill upon patient request if the prescription is for a schedule II opioid drug. Start Date: 07/15/23 Status: Ordered fluticasone 50 mcg/inh nasal spray See Instructions, USE 1 SPRAY(S) INTO EACH NOSTRIL TWICE A DAY, # 16 Gm, 1 Refills, Maintenance, 07/28/23 12:07:00 EST, [facility], 30, USE 1 SPRAY(S) INTO EACH NOSTRIL TWICE A DAY, 175, cm, 07/28/23 9:11:00 EST, Height, 61.3, kg, 07/12/23 2... Start Date: 07/28/23 Status: Ordered folic acid 1 mg oral tablet 1 mg, 1, tablet, By Mouth, Daily, Maintenance, 07/15/23 13:21:00 EST, Partial fill upon patient request if the prescription is for a schedule II opioid drug. Start Date: 07/15/23 Status: Ordered folic acid 1 mg oral tablet 1, tablet, By Mouth, Daily, ^1R1., # 30 tablet, Refills 5, Tot. Refills 5, Maintenance, 07/28/23 12:08:00 EST, Route to Pharmacy Electronically, [facility], 175, cm, 07/28/23 9:11:00 EST, Height, 61.3, kg, 07/12/23 23:27:00 EST, Dry Weight Start Date: 07/28/23 Status: Ordered furosemide 20 mg oral tablet 20 mg, 1, tablet, By Mouth, Every other day, # 30 tablet, Refills 1, Tot. Refills 1, Maintenance, 07/28/23 12:08:00 EST, Route to Pharmacy Electronically, [facility], Partial fill upon patient request if the prescription is for a schedule II... Start Date: 07/28/23 Status: Ordered gabapentin 300 mg oral capsule 300 mg, 1, capsule, By Mouth, Daily at bedtime, note dose/frequency change, # 30 capsule, Refills 1, Tot. Refills 1, Maintenance, 07/28/23 12:09:00 EST, Route to Pharmacy Electronically, [facility], 175, cm, 07/28/23 9:11:00 EST, Height, 61.... Start Date: 07/28/23 Stop Date: 10/20/24 Status: Ordered Gauze Pad (4 X 4) See Instructions, # 50 each, Refills 1, Tot. Refills 1, Maintenance, Use for wound care, delayed wound Right hip. T14.8XXD, 07/30/23 16:05:00 EST, Supply Start Date: 07/30/23 Status: Ordered hydrOXYzine hydrochloride 10 mg oral tablet 2 tablet = 20 mg, By Mouth, 2 times a day, PRN as needed for anxiety, Maintenance, 07/15/23 13:22:00 EST, Partial fill upon patient request if the prescription is for a schedule II opioid drug. Start Date: 07/15/23 Status: Ordered hydrOXYzine hydrochloride 10 mg oral tablet 2 tablet, By Mouth, 2 times a day, PRN NEEDED FOR ANXIETY (VIAL), # 30 tablet, 3 Refills, Maintenance, 07/28/23 12:10:00 EST, [facility], 175, cm, 07/28/23 9:11:00 EST, Height, 61.3, kg,07/12/23 23:27:00 EST, Dry Weight Start Date: 07/28/23 Status: Ordered lactulose 10 gm/15 ml oral syrup 30 mL = 20 Gm, By Mouth, 3 times a day, for 30 days, # 2,700 mL, 2 Refills, Acute 10/26/23 12:13:00EDT, 07/28/23 12:13:00 EST, Syrup, [facility], Partial fill upon patient request if the prescription is for a schedule II opioid drug., 30 mL... Start Date: 07/28/23 Stop Date: 10/26/23 Status: Ordered Lasix 20 mg oral tablet 20 mg, 1, tablet, By Mouth, Every other day, Maintenance, 07/15/23 13:21:00 EST, Partial fill upon patient request if the prescription is for a schedule II opioid drug. Start Date: 07/15/23 Status: Ordered Mag-Ox 400 400 mg oral tablet 1 tablet = 400 mg, By Mouth, 2 times a day, Maintenance, 07/15/23 13:22:00 EST, Partial fill upon patient request if the prescription is for a schedule II opioid drug. Start Date: 07/15/23 Status: Ordered magnesium oxide 400 mg oral tablet See Instructions, TAKE 1 TABLET BY MOUTH TWICE A DAY^1R1,1R4, # 60 tablet, 11 Refills, Maintenance,07/28/23 12:09:00 EST, [facility], 175, cm, 07/28/23 9:11:00 EST, Height, 61.3, kg, 07/12/23 23:27:00 EST, Dry Weight Start Date: 07/28/23 Status: Ordered melatonin 3 mg oral tablet 1 tablet = 3 mg, By Mouth, Daily at bedtime, PRN as needed for insomnia, Maintenance, 07/15/23 13:23:00 EST, Partial fill upon patient request if the prescription is for a schedule II opioid drug. Start Date: 07/15/23 Status: Ordered Melatonin 3 mg oral tablet 1 tablet, By Mouth, Daily at bedtime, PRN NEEDED FOR INSOMNIA (PACKAGE IN TRAY)^1R4, # 60 tablet, 5 Refills, Maintenance, 07/28/23 12:09:00 EST, [facility], 60, 1 tablet By Mouth Daily at bedtime,PRN: NEEDED FOR INSOMNIA (PACKAGE IN TRA... Start Date: 07/28/23 Status: Ordered Neurontin 300 mg oral capsule 300 mg, 1, capsule, By Mouth, Daily at bedtime, Maintenance, 07/15/23 13:22:00 EST, Partial fill upon patient request if the prescription is for a schedule II opioid drug. Start Date: 07/15/23 Status: Ordered Nicotine 2 mg gum 1 each = 2 mg, Chew, Every 2 hours, PRN as needed for smoking cessation, # 160 each, 1 Refills, Acute 09/29/24 19:11:00 EDT, 09/30/23 19:11:00 EDT, Gum, [facility], Partial fill upon patient request if the prescription is for a schedule II o... Start Date: 09/30/23 Stop Date: 09/29/24 Status: Ordered pantoprazole 40 mg oral delayed release tablet 1 tablet, By Mouth, Daily, ^1R1., # 30 tablet, 5 Refills, Maintenance, 07/28/23 12:12:00 EST, 175, cm, 07/28/23 9:11:00 EST, Height, 61.3, kg, 07/12/23 23:27:00 EST, Dry Weight Start Date: 07/28/23 Status: Ordered pantoprazole 40 mg oral delayed release tablet 1 tablet, By Mouth, Daily, ^1R1., # 30 tablet, 5 Refills, Maintenance, 06/28/23 14:46:00 EST, 175, cm, 03/22/23 6:50:00 EDT, Height, 77.5, kg, 03/20/23 11:30:00 EDT, Dry Weight Start Date: 06/28/23 Status: Ordered PARoxetine 10 mg oral tablet 20 mg, 2, tablet, By Mouth, Daily, ^1R1., # 60 tablet, Refills 5, Tot. Refills 5, Maintenance, 07/28/23 12:11:00 EST, Route to Pharmacy Electronically, [facility], 175, cm, 07/28/23 9:11:00EST, Height, 61.3, kg, 07/12/23 23:27:00 EST, Dry W... Start Date: 07/28/23 Status: Ordered Paxil 20 mg oral tablet 20 mg, 1, tablet, By Mouth, Daily, Maintenance, 07/15/23 13:23:00 EST, Partial fill upon patient request if the prescription is for a schedule II opioid drug. Start Date: 07/15/23 Status: Ordered R aircast ankle-stirrup support brace R aircast ankle-stirrup support brace, See Instructions, # 1 each, Refills 0, Tot. Refills 0, Maintenance, Dx: R inversion ankle sprain s93.409a, 01/06/22 12:31:00 EDT, Supply Start Date: 01/06/22 Status: Ordered Saljet Sterile 0.9% irrigation solution See Instructions, Use for wound care, delayed wound Right hip. T14.8XXD, # 1,000 mL, 3 Refills, Maintenance, 07/30/23 16:05:00 EST, Partial fill upon patient request if the prescription is for a schedule II opioid drug. Start Date: 07/30/23 Status: Ordered spironolactone 25 mg oral tablet 1, tablet, By Mouth, Daily, ^1R2., # 30 tablet, Refills 5, Tot. Refills 5, Maintenance, 07/28/23 12:12:00 EST, Route to Pharmacy Electronically, [facility], 175, cm, 07/28/23 9:11:00 EST, Height, 61.3, kg, 07/12/23 23:27:00 EST, Dry Weight Start Date: 07/28/23 Status: Ordered spironolactone 25 mg oral tablet 1, tablet, By Mouth, Daily, ^1R2., # 30 tablet, Refills 5, Tot. Refills 5, Maintenance, 04/14/23 12:41:00 EDT, Route to Pharmacy Electronically, [facility], 175, cm, 03/22/23 6:50:00 EDT, Height, 77.5, kg, 03/20/23 11:30:00 EDT, Dry Weight Start Date: 04/14/23 Status: Ordered Tab-A-Jesse oral tablet 1 tablet, By Mouth, Daily, R1., # 30 tablet, 5 Refills, Maintenance, 05/06/23 19:16:00 EST, [facility], 30, TAKE 1 TABLET BY MOUTH ONCE A DAY^1R1, 175, cm, 03/22/23 6:50:00 EDT, Height, 77.5,kg, 03/20/23 11:30:00 EDT, Dry Weight Start Date: 05/06/23 Status: Ordered Tape (1 -Plastic) See Instructions, # 3 each, Refills 1, Tot. Refills 1, Maintenance, Use for wound care, delayed wound Right hip. T14.8XXD, 07/30/23 16:05:00 EST, Supply Start Date: 07/30/23 Status: Ordered traZODone 50 mg oral tablet 2, tablet, By Mouth, Daily at bedtime, ^2R4., # 60 tablet, Refills 5, Maintenance, 02/26/23 10:11:00 EDT, Route to Pharmacy Electronically, [facility], 175, cm, 12/03/22 11:50:00 EDT, Height,84, kg, 02/12/23 11:30:00 EDT, Dry Weight Start Date: 02/26/23 Status: Ordered traZODone 50 mg oral tablet 50 mg, 1, tablet, By Mouth, Daily at bedtime, ^2R4., # 60 tablet, Refills 5, Tot. Refills 5, Maintenance, 07/28/23 12:12:00 EST, Route to Pharmacy Electronically, [facility], 175, cm, 07/28/23 9:11:00 EST, Height, 61.3, kg, 07/12/23 23:27:00... Start Date: 07/28/23 Status: Ordered Urinal Urinal, See Instructions, # 1 each, Refills 3, Tot. Refills 3, Maintenance, Dx: Cirrhoisis, ambulatory dysfunction, incontinency, 11/13/22 11:17:00 EDT, Supply Start Date: 11/13/22 Status: Ordered Vitamin B1 100 mg oral tablet 1, tablet, By Mouth, Daily, # 90 tablet, Refills 3, Tot. Refills 3, Maintenance, 02/09/23 23:18:00 EDT, Route to Pharmacy Electronically, [facility], 175, cm, 12/03/22 11:50:00 EDT, Height, 88.9, kg, 10/21/22 20:41:00 EDT, Dry Weight Start Date: 02/09/23 Status: Ordered Vitamin B1 100 mg oral tablet 1, tablet, By Mouth, Daily, # 90 tablet, Refills 3, Tot. Refills 3, Maintenance, 07/28/23 12:12:00 EST, Route to Pharmacy Electronically, [facility], 175, cm, 07/28/23 9:11:00 EST, Height, 61.3, kg, 07/12/23 23:27:00 EST, Dry Weight Start Date: 07/28/23 Status: Ordered Vitamin B6 50 mg oral tablet 1, tablet, By Mouth, Daily, R1., # 90 tablet, Refills 4, Maintenance, 11/16/22 13:39:00 EDT, Route to Pharmacy Electronically, [facility], 175, cm, 11/13/22 10:42:00 EDT, Height, 88.9, kg, 10/21/22 20:41:00 EDT, Dry Weight Start Date: 11/16/22 Status: Ordered Vitamin B6 50 mg oral tablet 1, tablet, By Mouth, Daily, R1., # 90 tablet, Refills 4, Tot. Refills 4, Maintenance, 07/28/23 12:11:00 EST, Route to Pharmacy Electronically, [facility], 175, cm, 07/28/23 9:11:00 EST, Height, 61.3, kg, 07/12/23 23:27:00 EST, Dry Weight Start Date: 07/28/23 Status: Ordered Voltaren Arthritis Pain 1% topical gel 1 application, Topically, 4 times a day, Maintenance, 07/15/23 11:06:00 EST, Partial fill upon patient request if the prescription is for a schedule II opioid drug. Start Date: 07/15/23 Status: Ordered Walker See Instructions, # 1 each, Maintenance, 2 wheeled Walker. Dx: Falls, gait abnormality, 10/24/22 10:07:00 EDT, Supply Start Date: 10/24/22 Status: Ordered Walker See Instructions, # 1 each, Maintenance, replacement for broken item; Use as needed, 09/03/23 7:50:00 EDT, Supply Start Date: 09/03/23 Status: Ordered Xifaxan 550 mg oral tablet 1 tablet = 550 mg, By Mouth, 4 times a day, Maintenance, 07/15/23 13:24:00 EST, Partial fill upon patient request if the prescription is for a schedule II opioid drug. Start Date: 07/15/23 Status: Ordered Xifaxan 550 mg oral tablet See Instructions, 1 tablet By Mouth 2 times a day, # 60 each, 5 Refills, Maintenance, 09/30/23 19:11:00 EDT, [facility], 175, cm, 09/24/23 11:09:00 EDT, Height, 81.8, kg, 09/24/23 11:09:00 EDT, Dry Weight Start Date: 09/30/23 Status: Ordered Problem List Condition Confirmation Course Effective Dates Status H ealth Status Informant AC joint derangement 1 Confirmed Active H/o Acute upper GI bleed due to variceal bleed Confirmed Active Alcohol abuse Confirmed Active Alcoholic hepatitis, cirrhosis 2, 3 Confirmed Active Anemia 4 Confirmed Active Patellar contusion, seen by [facility] spring 2015 Confirmed Active Esophageal varices s/p TIPS Confirmed Active Gynecomastia, male Confirmed Active History of encephalopathy Confirmed Active H/O: substance abuse; reports sobriety since summer 2015 5 Confirmed Active History of cellulitis Confirmed Active History of substance abuse Confirmed Active ED (erectile dysfunction) Confirmed Active Insomnia Confirmed Active Migraine Confirmed 08/02/12 Active Anxiety and depression; admission to [facility] in 06/2015 Confirmed Active Neuropathy 6 Confirmed Active Normocytic anemia Confirmed Active ANA LUISA (obstructive sleep apnea) Confirmed Active Sherie's Optic neuropathy 7, 8, 9 Confirmed Active Overweight Confirmed Active Pancytopenia Confirmed Active Postoperative wound infection of right hip Confirmed Active Heart murmur, systolic 10 Confirmed Active Vitamin D insufficiency Confirmed 08/16/12 Active 1refer ortho 2neg HEP C,b; immune HEP A, 3r/o nhemochromatosis 4workup 5referred counseling 6? alcohol 7neg RF ANCA,normal immunofixation, 8lumbar puncture November 2011,neg lymenormal IGA neg SSA ,SSBnormal methylmalonic acid homocyseine 9legally blind;hereditary 10normal echo November 2014 Social History Social History Type Response Smoking Status 10 or more cigarette s (1/2 pack or more)/day in last 30 days entered on: 02/04/19 Sex Patient Care team information Care Team Personnel Name: Shira Galindo RN Position: [facility] RN Member Role: Primary Care Nurse Name: Alexandra Colmenares RN Position: [facility] ED RN W/OE and Tasks Member Role: Primary Care Nurse Name: Garima Manzano RN Position: [facility] RN Member Role: Primary Care Nurse Name: Malgorzata Marinelli RN Position: [facility] RN Member Role: Primary Care Nurse Name: Joyce Roach RN Position: [facility] ED RN W/OE and Tasks Member Role: Primary Care Nurse Name: Lucina Peralta RN Position: [facility] RN Member Role: Primary Care Nurse Name: Maria Esther Craig LPN Position: [facility] RN Member Role: Primary Care Nurse Name: Kaye Comer RN Position: [facility] RN Member Role: Primary Care Nurse Name: Andres Pressley RN Position: [facility] RN Member Role: Primary Care Nurse Name: Jany Baig DO Position: [facility] Physician - Primary Care Member Role: PCP Address: Address: [address] [place] [address] [facility] [address] Name: Mary Haines RN Position: [facility] RN Member Role: Primary Care Nurse Name: Garima Curry RN Position: [facility] RN Member Role: Primary Care Nurse Name: Malgorzata Austin Position: [facility] RN Member Role: Primary Care Nurse Name: Ibeth Adams RN Position: [facility] RN Member Role: Primary Care Nurse Name: Torrie Hernandez RN Position: [facility] OB RN Member Role: Primary Care Nurse Name: Gretchen Knutson RN Position: [facility] SN RN Member Role: Primary Care Nurse Name: Aislinn Mckee RN Position: [facility] RN Member Role: Primary Care Nurse Name: Ashley Mcelroy Position: [facility] RN Member Role: Primary Care Nurse Name: Ashok Kevin RN Position: [facility] RN Member Role: Primary Care Nurse Name: Cody Garcia Position: [facility] Associate Professional Member Role: [employer] Provider Address: Address: [address] [place] [address]- Name: Paige Nascimento RN Position: [facility] RN Member Role: Primary Care Nurse Name: Ge Covarrubias RN Position: [facility] RN Member Role: Primary Care Nurse Name: Orin Elmore RN Position: [facility] ED RN W/OE and Tasks Member Role: Primary Care Nurse Name: Allegra Liu RN Position: [facility] SN RN Member Role: Primary Care Nurse Name: Shayan Pandya MD Position: [facility] Renal MD Member Role: [employer] Physician Address: Address: [address] [place] [address] [address] [facility] [place] [address]- Name: Kimberley Pittman RN Position: [facility] RN Member Role: Primary Care Nurse Name: Darlene Rodrigez RN Position: [facility] RN Member Role: Primary Care Nurse Name: Dixie Duke RN Position: [facility] RN Member Role: Primary Care Nurse Name: Kwan Mills RN Position: [facility] ED RN W/OE and Tasks Member Role: Primary Care Nurse Name: Ingrid Verdugo RN Position: [facility] RN Member Role: Primary Care Nurse Name: Monica Rowell RN Position: [facility] RN Member Role: Primary Care Nurse Name: Jimi Fitzpatrick RN Position: [facility] RN Member Role: Primary Care Nurse Care Team Related Persons Name: MARLEN CABEZAS Address: [address] [place] [address] Name: MARLEN CABEZAS Address: [address] [place] [address] Name: NICK CABEZAS Name: GEMA CABEZAS Address: [address] [place] [address] Name: ELTON CHENG Address: home [address] [place] [id number]
--- OUTSIDE RECORDS SUMMARY | 2023-12-15 20:44 | XMS_ITS | Continuity of Care Document ---
Author Organization [facility] Address [address] [place] [address]- Care Team Providers Care Battery Loader Name Role Phone Jany Baig DO Primary Care Physician ( [phone] Encounter [facility] Date(s): 04/05/23 - 05/08/23 [facility] [address] [place], [place] [address] [place] Attending Physician: Bi LEE, [place] Beyer Allergies, Adverse Reactions, Alerts Substance Reaction Severity [...] acel (oldterm) 08/02/12 Give n 1Result Comment: [facility]: [id number] 2Result Comment: [04/29/2017] [id number] 3Admin Note: FLUARIX 4Admin Note: 3 RDINJ 5Admin Note: #2 Medications acamprosate 333 mg oral delayed release tablet 1 tablet = 333 mg, By Mouth, 3 times a day, # 42 tablet, 4 Refills, Maintenance, 11/05/22 11:31:00 EDT, EC Tablet, [facility], Partial fill upon patient request if the prescription is for a schedule II opioid drug., 175, cm, 11/05/22 10:21:00... Start Date: 11/05/22 Stop Date: 01/14/23 Status: Ordered amLODIPine 5 mg oral tablet 1 tablet, By Mouth, Daily, ^1R1., # 30 tablet, 5 Refills, Maintenance, 12/22/22 7:20:00 EDT, [facility], 175, cm, 12/03/22 11:50:00 EDT, Height, 88.9, kg, 10/21/22 20:41:00 EDT, Dry Weight Start Date: 12/22/22 Status: Ordered baclofen 10 mg oral tablet See Instructions, TAKE ONE TABLET BY MOUTH THREE TIMES A DAY ^1R1,1R2,1R4, # 90 tablet, Refills 5, Tot. Refills 5, Maintenance, 01/14/23 17:55:00 EDT, Instructions Replace Required Details, Route to Pharmacy Electronically, [facility], 175, cm... Start Date: 01/14/23 Status: Ordered calcium (as carbonate)-vitamin D 500 mg-400 intl units oral tablet 1 tablet, By Mouth, Daily, ^1R1., # 28 tablet, 0 Refills, Maintenance, 12/01/22 16:12:00 EDT, [facility], 28, 1 tablet By Mouth Daily,Instr:^1R1., 175, cm, 11/13/22 10:42:00 EDT, Height, 88.9, kg, 10/21/22 20:41:00 EDT, Dry Weight Start Date: 12/01/22 Status: Ordered CALCIUM + D 500/400 TABS CALCIUM + D 500/400 TABS, 1, tablet, By Mouth, Daily, # 28 tablet, 11 Refills, Maintenance, ^1R2., 03/24/23 10:52:00 EDT, 175, cm, 03/22/23 6:50:00 EDT, Height, 77.5, kg, 03/20/23 11:30:00 EDT, Dry Weight Start Date: 03/24/23 Status: Ordered Co Q-10 100 mg oral capsule See Instructions, TAKE 1 CAPSULE BY MOUTH FOUR TIMES DAILY, # 120 capsule, 6 Refills, Maintenance, 12/03/22 12:13:00 EDT, [facility], 175, cm, 12/03/22 11:50:00 EDT, Height, 88.9, kg, 10/21/22 20:41:00 EDT, Dry Weight Start Date: 12/03/22 Status: Ordered Compression Stockings See Instructions, # 4 each, Refills 2, Tot. Refills 2, Maintenance, surgical, calf length 20-30 mm Hg M79.89 M79.606, 01/06/22 10:58:00 EDT, Supply Start Date: 01/06/22 Status: Ordered Diapers See Instructions, # 252 each, Refills 11, Tot. Refills 11, Maintenance, Aduld Adjustable Pullups SzL/XL use 6 daily per 6 wk period RAFI 99 mo n39.48, 11/13/22 11:18:00 EDT, Compound Start Date: 11/13/22 Status: Ordered diclofenac 1% topical gel See Instructions, APPLY TOPICALLY TO AFFECTED AREA(S) FOUR TIMES A DAY NEEDED FOR PAIN (BULK), #100 Gm, 12 Refills, Maintenance, 03/24/23 10:52:00 EDT, [facility], 28, APPLY TOPICALLY TO AFFECTED AREA(S) FOUR TIMES A DAY NEEDED FOR PAIN... Start Date: 03/24/23 Status: Ordered Disposable Underpads n39.498 Disposable Underpads n39.498, See Instructions, # 84 each, Refills 11, Tot. Refills 11, Maintenance, 2 daily per 6 wk period, 11/13/22 12:53:00 EDT, Compound Start Date: 11/13/22 Status: Ordered doxycycline hyclate 100 mg oral tablet 1 tablet = 100 mg, By Mouth, Every 12 hours, for 7 days, # 14 tablet, 0 Refills, Acute 05/14/23 13:32:00 EST, 05/07/23 13:32:00 EST, Tablet, [id number], Partial fill upon patient request if the prescription is for a schedule II opioid drug., 1... Start Date: 05/07/23 Stop Date: 05/14/23 Status: Ordered Eucerin Original Healing Cream Eucerin Original Healing Cream, See Instructions, # 454 Gm, Refills 11, Tot. Refills 11, Maintenance, apply 2 x a day for dry skin dx: eczema L30.9, 08/14/22 10:19:00 EST, Compound, 176, cm, 08/07/2310:37:00 EST, Height, 79.8, kg, 07/31/22 22:40:00... Start Date: 08/14/22 Status: Ordered fluticasone 50 mcg/inh nasal spray See Instructions, USE 1 SPRAY(S) INTO EACH NOSTRIL TWICE A DAY, # 16 Gm, 11 Refills, Maintenance, 08/07/22 12:12:00 EST, [id number], 30, USE 1 SPRAY(S) INTO EACH NOSTRIL TWICE A DAY, 176, cm,08/07/22 11:37:00 EST, Height, 79.8, kg, 07/31/22 2... Start Date: 08/07/22 Status: Ordered folic acid 1 mg oral tablet 1, tablet, By Mouth, Daily, ^1R1., # 30 tablet, Refills 5, Maintenance, 03/20/23 16:22:00 EDT, Route to Pharmacy Electronically, [facility], 175, cm, 03/20/23 15:31:00 EDT, Height, 77.5, kg, 03/20/23 11:30:00 EDT, Dry Weight Start Date: 03/20/23 Status: Ordered furosemide 20 mg oral tablet 20 mg, 1, tablet, By Mouth, Every other day, # 30 tablet, Refills 3, Tot. Refills 3, Maintenance, 01/28/23 12:31:00 EDT, Route to Pharmacy Electronically, [facility], Partial fill upon patient request if the prescription is for a schedule II o... Start Date: 01/28/23 Status: Ordered gabapentin 300 mg oral capsule 300 mg, 1, capsule, By Mouth, Daily at bedtime, note dose/frequency change, # 90 capsule, Refills 4, Tot. Refills 4, Maintenance, 11/05/22 11:05:00 EDT, Route to Pharmacy Electronically, [facility], 175, cm, 11/05/22 10:21:00 EDT, Height, 88.9... Start Date: 11/05/22 Stop Date: 01/29/24 Status: Ordered hydrOXYzine hydrochloride 10 mg oral tablet 2 tablet, By Mouth, 2 times a day, PRN NEEDED FOR ANXIETY (VIAL), # 30 tablet, 3 Refills, Maintenance, 04/16/23 16:41:00 EDT, [facility], 175, cm, 03/22/23 6:50:00 EDT, Height, 77.5, kg, 03/20/23 11:30:00 EDT, Dry Weight Start Date: 04/16/23 Status: Ordered lactulose 10 gm/15 ml oral syrup 15 mL, By Mouth, 2 times a day, # 120 mL, 6 Refills, Maintenance, 02/26/23 10:11:00 EDT, [facility], 4, TAKE 15ML BY MOUTH TWO TIMES A DAY, 175, cm, 12/03/22 11:50:00 EDT, Height, 84, kg, 02/12/23 11:30:00 EDT, Dry Weight Start Date: 02/26/23 Status: Ordered magnesium oxide 400 mg oral tablet See Instructions, TAKE 1 TABLET BY MOUTH TWICE A DAY^1R1,1R4, # 60 tablet, 11 Refills, Maintenance,01/28/23 12:31:00 EDT, [facility], 175, cm, 12/03/22 11:50:00 EDT, Height, 88.9, kg, 10/21/22 20:41:00 EDT, Dry Weight Start Date: 01/28/23 Status: Ordered Melatonin 3 mg oral tablet 1 tablet, By Mouth, Daily at bedtime, PRN NEEDED FOR INSOMNIA (PACKAGE IN TRAY)^1R4, # 60 tablet, 5 Refills, Maintenance, 04/16/23 16:41:00 EDT, [facility], 60, TAKE 1 TABLET BY MOUTH AT BEDTIME NEEDED FOR INSOMNIA (PACKAGE IN TRAY)^1R4,... Start Date: 04/16/23 Status: Ordered pantoprazole 40 mg oral delayed release tablet 1 tablet, By Mouth, Daily, ^1R1., # 90 tablet, 0 Refills, Maintenance, 04/21/23 19:10:00 EST, 175, cm, 03/22/23 6:50:00 EDT, Height, 77.5, kg, 03/20/23 11:30:00 EDT, Dry Weight Start Date: 04/21/23 Status: Ordered PARoxetine 10 mg oral tablet 1, tablet, By Mouth, Daily, ^1R1., # 28 tablet, Refills 5, Maintenance, 02/26/23 10:11:00 EDT, Route to Pharmacy Electronically, [facility], 175, cm, 12/03/22 11:50:00 EDT, Height, 84, kg, 02/12/23 11:30:00 EDT, Dry Weight Start Date: 02/26/23 Status: Ordered R aircast ankle-stirrup support brace R aircast ankle-stirrup support brace, See Instructions, # 1 each, Refills 0, Tot. Refills 0, Maintenance, Dx: R inversion ankle sprain s93.409a, 01/06/22 12:31:00 EDT, Supply Start Date: 01/06/22 Status: Ordered spironolactone 25 mg oral tablet 1, tablet, By Mouth, Daily, ^1R2., # 30 tablet, Refills 5, Tot. Refills 5, Maintenance, 04/14/23 12:41:00 EDT, Route to Pharmacy Electronically, [facility], 175, cm, 03/22/23 6:50:00 EDT, Height, 77.5, kg, 03/20/23 11:30:00 EDT, Dry Weight Start Date: 04/14/23 Status: Ordered Tab-A-Jesse oral tablet 1 tablet, By Mouth, Daily, R1., # 30 tablet, 5 Refills, Maintenance, 05/06/23 19:16:00 EST, [facility], 30, TAKE 1 TABLET BY MOUTH ONCE A DAY^1R1, 175, cm, 03/22/23 6:50:00 EDT, Height, 77.5,kg, 03/20/23 11:30:00 EDT, Dry Weight Start Date: 05/06/23 Status: Ordered traZODone 50 mg oral tablet 2, tablet, By Mouth, Daily at bedtime, ^2R4., # 60 tablet, Refills 5, Maintenance, 02/26/23 10:11:00 EDT, Route to Pharmacy Electronically, [facility], 175, cm, 12/03/22 11:50:00 EDT, Height,84, kg, 02/12/23 11:30:00 EDT, Dry Weight Start Date: 02/26/23 Status: Ordered Urinal Urinal, See Instructions, # 1 each, Refills 3, Tot. Refills 3, Maintenance, Dx: Cirrhoisis, ambulatory dysfunction, incontinency, 11/13/22 11:17:00 EDT, Supply Start Date: 11/13/22 Status: Ordered Vitamin B1 100 mg oral tablet 1, tablet, By Mouth, Daily, # 90 tablet, Refills 3, Tot. Refills 3, Maintenance, 02/09/23 23:18:00 EDT, Route to Pharmacy Electronically, [facility], 175, cm, 12/03/22 11:50:00 EDT, Height, 88.9, kg, 10/21/22 20:41:00 EDT, Dry Weight Start Date: 02/09/23 Status: Ordered Vitamin B6 50 mg oral tablet 1, tablet, By Mouth, Daily, R1., # 90 tablet, Refills 4, Maintenance, 11/16/22 13:39:00 EDT, Route to Pharmacy Electronically, [facility], 175, cm, 11/13/22 10:42:00 EDT, Height, 88.9, kg, 10/21/22 20:41:00 EDT, Dry Weight Start Date: 11/16/22 Status: Ordered Walker See Instructions, # 1 each, Maintenance, 2 wheeled Walker. Dx: Falls, gait abnormality, 10/24/22 10:07:00 EDT, Supply Start Date: 10/24/22 Status: Ordered Walker See Instructions, # 1 each, Maintenance, Use as needed, 02/12/23 11:28:00 EDT, Supply Start Date: 02/12/23 Status: Ordered Xifaxan 550 mg oral tablet 1 tablet, By Mouth, 2 times a day, VIAL., # 60 tablet, 3 Refills, Maintenance, 02/26/23 10:11:00 EDT, [facility], 175, cm, 12/03/22 11:50:00 EDT, Height, 84, kg, 02/12/23 11:30:00 EDT, Dry Weight Start Date: 02/26/23 Status: Ordered Problem List Condition Confirmation Course [...] TIPS Confirmed Active Gynecomastia, male Confirmed Active H/O: substance abuse; reports sobriety since summer 2015 5 Confirmed Active Hepatic encephalopathy Confirmed Active ED (erectile dysfunction) Confirmed Active Insomnia Confirmed Active Migraine Confirmed 08/02/12 Active Anxiety and depression; admission to [facility] in 06/2015 Confirmed Active Neuropathy 6 Confirmed Active Normocytic anemia Confirmed Active ANA LUISA (obstructive sleep apnea) Confirmed Active Sherie's Optic neuropathy 7, 8, 9 Confirmed Active Overweight Confirmed Active Heart murmur, systolic 10 Confirmed [...] Care team information Care Team Personnel Name: Alexandra Colmenares RN Position: [facility] ED RN W/OE and Tasks Member Role: Primary Care Nurse Name: Garima Manzano RN Position: [facility] RN Member Role: Primary Care Nurse Name: Malgorzata Marinelli RN Position: [facility] RN Member Role: Primary Care Nurse Name: Joyce Roach RN Position: [facility] ED RN W/OE and Tasks Member Role: Primary Care Nurse Name: Mary Suazo RN Position: [facility] RN Member Role: Primary Care Nurse Name: Andres Pressley RN Position: [facility] ED RN W/OE and Tasks Member Role: Primary Care Nurse Name: Jany Baig DO Position: [facility] Physician - Primary Care Member Role: PCP Address: Address: [address] [place] [address] [facility] [place] [address]- Name: Kaye Payne RN Position: [facility] RN Member Role: Primary Care Nurse Name: Garima Hutchinson Position: [facility] RN Member Role: Primary Care Nurse Name: Malgorzata Austin Position: [facility] RN Member Role: Primary Care Nurse Name: Ibeth Adams RN Position: [facility] RN Member Role: Primary Care Nurse Name: Torrie Hernandez RN Position: [facility] OB RN Member Role: Primary Care Nurse Name: Gretchen Knutson RN Position: [facility] SN RN Member Role: Primary Care Nurse Name: Aislinn Mckee RN Position: [facility] RN Member Role: Primary Care Nurse Name: Ashley Mcelroy Position: [facility] RN Member Role: Primary Care Nurse Name: Ashok Kevin RN Position: [facility] RN Member Role: Primary Care Nurse Name: Cody Garcia Position: [facility] Associate Professional Member Role: Lifetime Consulting Provider Address: Address: [address] [place] [id number]- Name: Paige Nascimento RN Position: [facility] RN Member Role: Primary Care Nurse Name: Ge Covarrubias RN Position: [facility] RN Member Role: Primary Care Nurse Name: Orin Elmore RN Position: [facility] ED RN W/OE and Tasks Member Role: Primary Care Nurse Name: Allegra Liu RN Position: [facility] AMB Nurse Member Role: Primary Care Nurse Name: Shayan Pandya MD Position: [facility] Renal MD Member Role: Lifetime Consulting Physician Address: Address: [address] [facility], [place], [place] [address] Name: Darlene Rodrigez RN Position: [facility] RN Member Role: Primary Care Nurse Name: Kwan Mills RN Position: [facility] RN Member Role: Primary Care Nurse Name: Dolores Can RN Position: [facility] RN Member Role: Primary Care Nurse Name: Ingrid Verdugo RN Position: [facility] RN Member Role: Primary Care Nurse Name: Monica Rowell RN Position: [facility] RN Member Role: Primary Care Nurse Name: Jimi Fitzpatrick RN Position: [facility] RN Member Role: Primary Care Nurse Care Team Related Persons Name: MARLEN CABEZAS Address: [address] [place] [address] Name: MARLEN CABEZAS Address: home [address] [place] [address] Name: NICK CABEZAS Name: CAWUGEMA Address: home [address] [place] [id number]
--- OUTSIDE RECORDS SUMMARY | 2023-12-15 20:44 | XMS_ITS | Continuity of Care Document ---
Author Organization [facility] Address [address] [place] [address] [address] [place] [address]- Care Team Providers Care Engraver Automatic Name Role Phone Jany Baig DO Primary Care Physician Encounter [facility] [place] Date(s): 07/01/22 - 07/31/[address] [place] [address]- Attending Physician: Venice Salmon Admitting Physician: Venice [...] acel (oldterm) 08/02/12 Give n 1Result Comment: [facility]: [id number] 2Result Comment: [04/29/2017] [id number] 3Admin Note: FLUARIX 4Admin Note: 3 RDINJ 5Admin Note: #2 Medications acetaminophen 500 mg oral tablet 1 tablet, By Mouth, 4 times a day, PRN NEEDED FOR PAIN, MAX 4, PER DAY (VIAL., # 50 tablet, 11 Refills, Maintenance, 03/13/22 8:37:00 EDT, [facility], 175, cm, 01/06/22 10:34:00 EDT, Height, 78.3, kg, 12/26/21 19:05:00 EDT, Dry Weight Start Date: 03/13/22 Status: Ordered amLODIPine 5 mg oral tablet See Instructions, TAKE 1 TABLET BY MOUTH ONCE A DAY^1R1, # 30 tablet, 5 Refills, Maintenance, 05/13/22 16:24:00 EST, [facility], 175, cm, 04/09/22 15:34:00 EDT, Height, 78.3, kg, 12/26/21 19:05:00 EDT, Dry Weight Start Date: 05/13/22 Status: Ordered Compression Stockings See Instructions, # 4 each, Refills 2, Tot. Refills 2, Maintenance, surgical, calf length 20-30 mm Hg M79.89 M79.606, 01/06/22 10:58:00 EDT, Supply Start Date: 01/06/22 Status: Ordered fluticasone 50 mcg/inh nasal spray See Instructions, USE 1 SPRAY(S) INTO EACH NOSTRIL TWICE A DAY, # 16 Gm, 5 Refills, Maintenance, 02/18/22 10:02:00 EDT, [facility], 30, USE 1 SPRAY(S) INTO EACH NOSTRIL TWICE A DAY, 175, cm, 01/06/22 10:34:00 EDT, Height, 78.3, kg, 12/26/21 19... Start Date: 02/18/22 Status: Ordered folic acid 1 mg oral tablet 1 mg, 1, tablet, By Mouth, Daily, # 90 tablet, Refills 4, Tot. Refills 4, Maintenance, 10/27/21 10:40:00 EDT, Route to Pharmacy Electronically, [facility], Partial fill upon patient request if the prescription is for a schedule II opioid drug.... Start Date: 10/27/21 Stop Date: 01/20/23 Status: Ordered furosemide 20 mg oral tablet 1, tablet, By Mouth, Daily, R1., # 30 tablet, Refills 5, Tot. Refills 5, Maintenance, 07/18/22 7:52:00 EST, [facility], 179, cm, 07/01/22 13:29:00 EST, Height, 84, kg, 06/01/22 12:27:00 EST, Dry Weight Start Date: 07/18/22 Status: Ordered gabapentin 300 mg oral capsule 300 mg, 1, capsule, By Mouth, 3 times a day, # 21 capsule, Refills 0, Tot. Refills 0, Maintenance, 06/09/22 16:20:00 EST, [facility], Partial fill upon patient request if the prescription is for a schedule II opioid drug. Start Date: 06/09/22 Stop Date: 06/16/22 Status: Ordered hydrOXYzine hydrochloride 25 mg oral tablet 1 TO 2 TABLETS, By Mouth, Daily at bedtime, PRN NEEDED FOR ANXIETY (VIAL), # 60 tablet, 11 Refills, Maintenance, 03/13/22 8:38:00 EDT, [facility], 175, cm, 01/06/22 10:34:00 EDT, Height, 78.3, kg, 12/26/21 19:05:00 EDT, Dry Weight Start Date: 03/13/22 Status: Ordered lactulose 10 gm/15 ml oral syrup See Instructions, TAKE 30ML BY MOUTH THREE TIMES DAILY NEEDED TO ACHEIVE 3-4 BOWL MOVEMENTS PER DAY, # 3,000 mL, 10 Refills, [facility], 30, TAKE 30ML BY MOUTH THREE TIMES DAILY NEEDED TO ACHEIVE 3-4 BOWL MOVEMENTS PER DAY, 174, cm, 02/12... Start Date: 07/02/21 Status: Ordered Lidoderm 5% film 1 patch, Topically, Daily, remove patches after 12 hours NSAIDS contraindicated High dose tylenol contraindicated, # 30 patch, 5 Refills, Maintenance, 12/26/21 9:33:00 EDT, [facility], Partial fill upon patient request if the prescription i... Start Date: 12/26/21 Status: Ordered magnesium oxide 400 mg oral tablet 1 tablet, By Mouth, 2 times a day, # 60 tablet, 11 Refills, Maintenance, 03/13/22 8:37:00 EDT, [facility], 175, cm, 01/06/22 10:34:00 EDT, Height, 78.3, kg, 12/26/21 19:05:00 EDT, Dry Weight Start Date: 03/13/22 Status: Ordered Melatonin 3 mg oral tablet 1 tablet, By Mouth, Daily at bedtime, PRN NEEDED FOR INSOMNIA (PACKAGE IN TRAY)^1R4, # 60 tablet, 5 Refills, Maintenance, 06/12/22 18:11:00 EST, [facility], 60, TAKE 1 TABLET BY MOUTH AT BEDTIME NEEDED FOR INSOMNIA (PACKAGE IN TRAY)^1R4,... Start Date: 06/12/22 Status: Ordered NuLYTELY with Flavor Packs oral powder for reconstitution See Instructions, per GI office, # 4,000 mL, 0 Refills, Maintenance, 07/24/22 22:07:00 EST, [facility], Partial fill upon patient request if the prescription is for a schedule II opioid drug., per GI office, 179, cm, 07/01/22 13:29:00 EST, Hei... Start Date: 07/24/22 Status: Ordered pantoprazole 40 mg oral delayed release tablet 1 tablet, By Mouth, Daily, ^1R1., # 30 tablet, 2 Refills, Maintenance, 07/18/22 7:53:00 EST, 179, cm, 07/01/22 13:29:00 EST, Height, 84, kg, 06/01/22 12:27:00 EST, Dry Weight Start Date: 07/18/22 Status: Ordered PARoxetine 10 mg oral tablet 5 mg, 0.5, tablet, By Mouth, Daily, # 45 tablet, Refills 1, Tot. Refills 1, Maintenance, 04/09/22 16:00:00 EDT, Route to Pharmacy Electronically, [facility], Partial fill upon patient requestif the prescription is for a schedule II opioid remedios... Start Date: 04/09/22 Stop Date: 10/06/22 Status: Ordered Potassium Chloride (Eqv-K-Tab) 20 mEq oral tablet, extended release 2 tablet, By Mouth, Daily, # 180 tablet, 1 Refills, Maintenance, 05/13/22 9:48:00 EST, [facility], 175, cm, 04/09/22 15:34:00 EDT, Height, 78.3, kg, 12/26/21 19:05:00 EDT, Dry Weight Start Date: 05/13/22 Stop Date: 11/09/22 Status: Ordered pyridoxine 50 mg oral tablet 50 mg, 1, tablet, By Mouth, Daily, for 90 days, # 90 tablet, Refills 4, Tot. Refills 4, Acute 01/15/23 11:42:00 EDT, 10/22/21 11:42:00 EDT, Route to Pharmacy Electronically, [facility], Partial fill upon patient request if the prescription is... Start Date: 10/22/21 Stop Date: 01/15/23 Status: Ordered R aircast ankle-stirrup support brace R aircast ankle-stirrup support brace, See Instructions, # 1 each, Refills 0, Tot. Refills 0, Maintenance, Dx: R inversion ankle sprain s93.409a, 01/06/22 12:31:00 EDT, Supply Start Date: 01/06/22 Status: Ordered Tab-A-Jesse oral tablet 1 tablet, By Mouth, Daily, # 90 tablet, 9 Refills, [facility], 28, TAKE 1 TABLET BY MOUTH ONCE A DAY, 174, cm, 07/14/21 8:16:00 EST, Height, 81, kg, 02/27/21 14:06:00 EDT, Dry Weight Start Date: 07/22/21 Status: Ordered traZODone 50 mg oral tablet 2 TO 3 TABLETS, By Mouth, Daily at bedtime, #28 VIAL)^2R4., # 90 tablet, Refills 5, Maintenance, 06/12/22 18:11:00 EST, Route to Pharmacy Electronically, [facility], 179, cm, 06/08/22 7:37:00EST, Height, 84, kg, 06/01/22 12:27:00 EST, Dry Weight Start Date: 06/12/22 Status: Ordered Vitamin B1 100 mg oral tablet 1, tablet, By Mouth, Daily, # 90 tablet, Refills 3, Maintenance, 03/13/22 8:37:00 EDT, Route to Pharmacy Electronically, [facility], 175, cm, 01/06/22 10:34:00 EDT, Height, 78.3, kg, 12/26/2218:05:00 EDT, Dry Weight Start Date: 03/13/22 Status: Ordered Xifaxan 550 mg oral tablet 1 tablet, By Mouth, 2 times a day, ^1R1,1R4., # 60 tablet, 1 Refills, Maintenance, 06/12/22 18:10:00 EST, [facility], 179, cm, 06/08/22 7:37:00 EST, Height, 84, kg, 06/01/22 12:27:00 EST, DryWeight Start Date: 06/12/22 Status: Ordered Problem List Condition Confirmation Course [...] Team Personnel Name: Alexandra Colmenares RN Position: [facility] ED RN W/OE and Tasks Member Role: Primary Care Nurse Name: Garima Manzano RN Position: [facility] RN Member Role: Primary Care Nurse Name: Malgorzata Marinelli RN Position: [facility] RN Member Role: Primary Care Nurse Name: Joyce Roach RN Position: [facility] RN Member Role: Primary Care Nurse Name: Mary Suazo RN Position: [facility] RN Member Role: Primary Care Nurse Name: Danyel Davis RN Position: [facility] RN Member Role: Primary Care Nurse Name: Andres Pressley RN Position: [facility] RN Member Role: Primary Care Nurse Name: Jany Baig DO Position: [facility] Primary Care Physician Member Role: PCP Address: Address: [address] [place] [address] Adult [facility] Pediatric [place], [place] [address] Name: Neida Ballard RN Position: [facility] RN Member Role: Primary Care Nurse Name: Kaye Payne RN Position: [facility] RN Member Role: Primary Care Nurse Name: Garima Hutchinson Position: [facility] RN Member Role: Primary Care Nurse Name: Malgorzata Austin Position: [facility] RN Member Role: Primary Care Nurse Name: Torrie Hernandez RN Position: [facility] OB RN Member Role: Primary Care Nurse Name: Gretchen Knutson RN Position: [facility] SN RN Member Role: Primary Care Nurse Name: Aislinn Mckee RN Position: [facility] RN Member Role: Primary Care Nurse Name: Ashley Mcelroy Position: [facility] RN Member Role: Primary Care Nurse Name: Cody Garcia Position: [facility] Associate Professional Member Role: Lifetime Consulting Provider Address: Address: [address] [place] [address]- Name: Ge Covarrubias RN Position: [facility] RN Member Role: Primary Care Nurse Name: Orin Elmore RN Position: [facility] ED RN W/OE and Tasks Member Role: Primary Care Nurse Name: Allegra Liu RN Position: [facility] PCO RN Member Role: Primary Care Nurse Name: Shayan Pandya MD Position: [facility] Renal MD Member Role: Lifetime Consulting Physician Address: Address: [address] [place] [address] [address] [facility] [address] Name: Darlene Rodrigez RN Position: [facility] RN Member Role: Primary Care Nurse Name: Kwan Mills RN Position: [facility] RN Member Role: Primary Care Nurse Name: Dolores Can RN Position: [facility] RN Member Role: Primary Care Nurse Name: Kim Rendon RN Position: [facility] RN Member Role: Primary Care Nurse Name: Monica Rowell RN Position: [facility] RN Member Role: Primary Care Nurse Care Team Related Persons Name: MARLEN CABEZAS Address: home [address] [place] [id number] Name: MARLEN CABEZAS Address: home [address] [place] [address] Name: NICK CABEZAS Name: CAWUGEMA Address: home [address] [place] [address]
--- OUTSIDE RECORDS SUMMARY | 2023-12-15 20:44 | XMS_ITS | Continuity of Care Document ---
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: [id number] 2Result Comment: [04/29/2017] [id number] 3Admin Note: FLUARIX 4Admin Note: 3 RDINJ 5Admin Note: #2 Medications acamprosate 333 mg oral delayed release tablet 1 tablet = 333 mg, By Mouth, 3 times a day, # 42 tablet, 4 Refills, Maintenance, 11/05/22 11:31:00 EDT, EC Tablet, [facility], Partial fill upon patient request if the prescription is for a schedule II opioid drug., 175, cm, 11/05/22 10:21:00... Start Date: 11/05/22 Stop Date: 01/14/23 Status: Ordered amLODIPine 5 mg oral tablet 1 tablet, By Mouth, Daily, ^1R1., # 30 tablet, 5 Refills, Maintenance, 12/22/22 7:20:00 EDT, [facility], 175, cm, 12/03/22 11:50:00 EDT, Height, 88.9, kg, 10/21/22 20:41:00 EDT, Dry Weight Start Date: 12/22/22 Status: Ordered baclofen 10 mg oral tablet See Instructions, TAKE ONE TABLET BY MOUTH THREE TIMES A DAY ^1R1,1R2,1R4, # 90 tablet, Refills 5, Tot. Refills 5, Maintenance, 01/14/23 17:55:00 EDT, Instructions Replace Required Details, [facility], 175, cm... Start Date: 01/14/23 Status: Ordered calcium (as carbonate)-vitamin D 500 mg-400 intl units oral tablet 1 tablet, By Mouth, Daily, ^1R1., # 28 tablet, 0 Refills, Maintenance, 12/01/22 16:12:00 EDT, [facility], 28, 1 tablet By Mouth Daily,Instr:^1R1., [...] capsule, 6 Refills, Maintenance, 12/03/22 12:13:00 EDT, [facility], 175, cm, 12/03/22 11:50:00 EDT, Height, [...] Gm, 12 Refills, Maintenance, 03/24/23 10:52:00 EDT, [facility], 28, APPLY TOPICALLY TO AFFECTED AREA(S) [...] mg, By Mouth, Every 12 hours, for 42 days, # 84 tablet, 0 Refills, Acute 05/03/23 12:01:00 EST, 03/22/23 12:01:00 EDT, Tablet, [facility][id number], Partial fill upon patient request if the prescription is for a schedule II opioid drug.,... Start Date: 03/22/23 Stop Date: 05/03/23 Status: Ordered Eucerin Original Healing Cream Eucerin [...] Gm, 11 Refills, Maintenance, 08/07/22 12:12:00 EST, [facility]/pharm[facility] #[id number], 30, USE 1 SPRAY(S) INTO EACH NOSTRIL TWICE A DAY, 176, cm,08/07/22 11:37:00 EST, Height, 79.8, kg, 07/31/22 2... Start Date: 08/07/22 Status: Ordered folic acid 1 mg oral tablet 1, tablet, By Mouth, Daily, ^1R1., # 30 tablet, Refills 5, Maintenance, 03/20/23 16:22:00 EDT, Route to Pharmacy Electronically, [facility], 175, cm, 03/20/23 15:31:00 EDT, Height, 77.5, kg, 03/20/23 11:30:00 EDT, Dry Weight Start Date: 03/20/23 Status: Ordered furosemide 20 mg oral tablet 20 mg, 1, tablet, By Mouth, Every other day, # 30 tablet, Refills 3, Tot. Refills 3, Maintenance, 01/28/23 12:31:00 EDT, Route to Pharmacy Electronically, [facility], Partial fill upon patient request if the prescription is for a schedule II o... Start Date: 01/28/23 Status: Ordered gabapentin 300 mg oral capsule 300 mg, 1, capsule, By Mouth, Daily at bedtime, note dose/frequency change, # 90 capsule, Refills 4, Tot. Refills 4, Maintenance, 11/05/22 11:05:00 EDT, Route to Pharmacy Electronically, [facility], 175, cm, 11/05/22 10:21:00 EDT, Height, 88.9... Start Date: 11/05/22 Stop Date: 01/29/24 Status: Ordered hydrOXYzine hydrochloride 10 mg oral tablet 2 tablet, By Mouth, 2 times a day, PRN NEEDED FOR ANXIETY (VIAL), # 30 tablet, 3 Refills, Maintenance, 04/16/23 16:41:00 EDT[facility], [facility], cm, 03/22/23 6:50:00 EDT, Height, 77.5, kg, 03/20/23 11:30:00 EDT, Dry Weight Start Date: 04/16/23 Status: Ordered lactulose 10 gm/15 ml oral syrup 15 mL, By Mouth, 2 times a day, # 120 mL, 6 Refills, Maintenance, 02/26/23 10:11:00 EDT, [facility], 4, TAKE 15ML BY MOUTH TWO TIMES A DAY, 175, cm, 12/03/22 11:50:00 EDT, Height, 84, kg, 02/12/23 11:30:00 EDT, Dry Weight Start Date: 02/26/23 Status: Ordered magnesium oxide 400 mg oral tablet See Instructions, TAKE 1 TABLET BY MOUTH TWICE A DAY^1R1,1R4, # 60 tablet, 11 Refills, Maintenance,01/28/23 12:31:00 EDT, [facility], 175, cm, 12/03/22 11:50:00 EDT, Height, 88.9, kg, 10/21/22 20:41:00 EDT, Dry Weight Start Date: 01/28/23 Status: Ordered Melatonin 3 mg oral tablet 1 tablet, By Mouth, Daily at bedtime, PRN NEEDED FOR INSOMNIA (PACKAGE IN TRAY)^1R4, # 60 tablet, 5 Refills, Maintenance, 04/16/23 16:41:00 EDT, [facility], 60, TAKE 1 TABLET BY MOUTH AT BEDTIME NEEDED FOR INSOMNIA (PACKAGE IN TRAY)^1R4,... Start Date: 04/16/23 Status: Ordered pantoprazole 40 mg oral delayed release tablet 1 tablet, By Mouth, Daily, ^1R1., # 90 tablet, 4 Refills, Maintenance, 09/03/22 14:56:00 EDT, 169, cm, 09/03/22 14:21:00 EDT, Height, 69, kg, 08/16/22 1:04:00 EST, Dry Weight Start Date: 09/03/22 Stop Date: 11/27/23 Status: Ordered PARoxetine 10 mg oral tablet 1, tablet, By Mouth, Daily, ^1R1., # 28 tablet, Refills 5, Maintenance, 02/26/23 10:11:00 EDT, Route to Pharmacy Electronically, [facility], 175, cm, 12/03/22 11:50:00 EDT, Height, 84, kg, 02/12/23 11:30:00 EDT, Dry Weight Start Date: 02/26/23 Status: Ordered R aircast ankle-stirrup support brace R aircast ankle-stirrup support brace, See Instructions, # 1 each, Refills 0, Tot. Refills 0, Maintenance, Dx: R inversion ankle sprain s93.409a, 01/06/22 12:31:00 EDT, Supply Start Date: 01/06/22 Status: Ordered rifampin 300 mg oral capsule 2 capsule = 600 mg, By Mouth, Daily, for 42 days, # 84 capsule, 0 Refills, Acute 05/03/23 12:02:00 EST, 03/22/23 12:02:00 EDT, Capsule, [facility]/pharmacy #[id number], Partial fill upon patient request if the prescription is for a schedule II opioid drug., 175, c... Start Date: 03/22/23 Stop Date: 05/03/23 Status: Ordered spironolactone 25 mg oral tablet 1, tablet, By Mouth, Daily, ^1R2., # 30 tablet, Refills 5, Tot. Refills 5, Maintenance, 04/14/23 12:41:00 EDT, Route to Pharmacy Electronically, [facility], 175, cm, 03/22/23 6:50:00 EDT, Height, 77.5, kg, 03/20/23 11:30:00 EDT, Dry Weight Start Date: 04/14/23 Status: Ordered Tab-A-Jesse oral tablet 1 tablet, By Mouth, Daily, # 90 tablet, 1 Refills, 12/01/22 12:59:00 EDT, [facility], 28, 1tablet By Mouth Daily, 175, cm, 11/13/22 10:42:00 EDT, Height, 88.9, kg, 10/21/22 20:41:00 EDT, DryWeight Start Date: 12/01/22 Status: Ordered traZODone 50 mg oral tablet 2, tablet, By Mouth, Daily at bedtime, ^2R4., # 60 tablet, Refills 5, Maintenance, 02/26/23 10:11:00 EDT, Route to Pharmacy Electronically, [facility], 175, cm, 12/03/22 11:50:00 EDT, Height,84, [...] 02/09/23 23:18:00 EDT, Route to Pharmacy Electronically, [facility], 175, cm, 12/03/22 11:50:00 EDT, Height, 88.9, kg, 10/21/22 20:41:00 EDT, Dry Weight Start Date: 02/09/23 Status: Ordered Vitamin B6 50 mg oral tablet 1, tablet, By Mouth, Daily, R1., # 90 tablet, Refills 4, Maintenance, 11/16/22 13:39:00 EDT, Route to Pharmacy Electronically, [facility], 175, cm, 11/13/22 10:42:00 EDT, Height, [...] tablet, 3 Refills, Maintenance, 02/26/23 10:11:00 EDT, [facility], 175, cm, 12/03/22 11:50:00 EDT, [...] Team Personnel Name: Alexandra Colmenares RN Position: [facility] ED RN W/OE and Tasks Member Role: Primary Care Nurse Name: Garima Manzano RN Position: [facility] RN Member Role: Primary Care Nurse Name: Malgorzata Marinelli RN Position: [facility] RN Member Role: Primary Care Nurse Name: Joyce Roach RN Position: [facility] RN Member Role: Primary Care Nurse Name: Mary Suazo RN Position: [facility] RN Member Role: Primary Care Nurse Name: Andres Pressley RN Position: [facility] ED RN W/OE and Tasks Member Role: Primary Care Nurse Name: Jany Baig DO Position: [facility] Physician - Primary Care Member Role: PCP Address: Address: [address] [place] [address] Adult & [place] [address]- Name: Kaye Payne RN Position: [facility] RN Member Role: Primary Care Nurse Name: Garima Hutchinson Position: [facility] RN Member Role: Primary Care Nurse Name: Malgorzata Austin Position: [facility] RN Member Role: Primary Care Nurse Name: Ibeth Adams RN Position: [facility] RN Member Role: Primary Care Nurse Name: Torrie Hernandez RN Position: [facility] OB RN Member Role: Primary Care Nurse Name: Gretchen Knutson RN Position: [facility] SN RN Member Role: Primary Care Nurse Name: Aislinn Mckee RN Position: [facility] RN Member Role: Primary Care Nurse Name: Ashley Mcelroy Position: [facility] RN Member Role: Primary Care Nurse Name: Ashok Kevin RN Position: [facility] RN Member Role: Primary Care Nurse Name: Cody Garcia Position: [facility] Associate Professional Member Role: Lifetime Consulting Provider Address: Address: [address] [place] [address]- Name: Paige Nascimento RN Position: [facility] RN Member Role: Primary Care Nurse Name: Ge Covarrubias RN Position: [facility] RN Member Role: Primary Care Nurse Name: Orin Elmore RN Position: [facility] ED RN W/OE and Tasks Member Role: Primary Care Nurse Name: Allegra Liu RN Position: [facility] AMB Nurse Member Role: Primary Care Nurse Name: Shayan Pandya MD Position: [facility] Renal MD Member Role: Lifetime Consulting Physician Address: Address: [address] [place] [address] [address] [facility] [place] [place] [address]- Name: Darlene Rodrigez RN Position: [facility] RN Member Role: Primary Care Nurse Name: Dolores Can RN Position: [facility] RN Member Role: Primary Care Nurse Name: nIgrid Verdugo RN Position: [facility] RN Member Role: Primary Care Nurse Name: Monica Rowell RN Position: [facility] RN Member Role: Primary Care Nurse Name: Jimi Fitzpatrick RN Position: [facility] RN Member Role: Primary Care Nurse Care Team Related Persons Name: MARLEN CABEZAS Address: home [address] [place] [id number] Name: MARLEN CABEZAS Address: home [address] [place] [id number] Name: NICK CABEZAS Name: CAWUGEMA Address: home [address] [place] [address]
--- OUTSIDE RECORDS SUMMARY | 2023-12-15 20:44 | XMS_ITS | Continuity of Care Document ---
Author Organization 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 [address] [place] [address]- Allergies, Adverse Reactions, Alerts Substance Reaction Severity [...] acel (oldterm) 08/02/12 Give n 1Result Comment: [facility]: [id number] 2Result Comment: [04/29/2017] [id number] 3Admin Note: FLUARIX 4Admin Note: 3 RDINJ 5Admin Note: #2 Medications acetaminophen 500 mg oral tablet 1 tablet, By Mouth, 4 times a day, PRN NEEDED FOR PAIN, MAX 4, PER DAY (VIAL., # 50 tablet, 11 Refills, Maintenance, 03/13/22 8:37:00 EDT, [facility], 175, cm, 01/06/22 10:34:00 EDT, Height, 78.3, kg, 12/26/21 19:05:00 EDT, Dry Weight Start Date: 03/13/22 Status: Ordered amLODIPine 5 mg oral tablet 5 mg, 1, tablet, By Mouth, Daily, # 30 tablet, Refills 5, Tot. Refills 5, Maintenance, 10/21/21 10:15:00 EDT, Route to Pharmacy Electronically, [facility], Partial fill upon patient request if the prescription is for a schedule II opioid drug.... Start Date: 10/21/21 Status: Ordered Co Q-10 100 mg oral capsule 1 capsule, By Mouth, 4 times a day, # 120 capsule, 5 Refills, Maintenance, 04/09/22 15:55:00 EDT, [facility], 175, cm, 04/09/22 15:34:00 EDT, Height, 78.3, kg, 12/26/21 19:05:00 EDT, Dry Weight Start Date: 04/09/22 Status: Ordered Compression Stockings See Instructions, # 4 each, Refills 2, Tot. Refills 2, Maintenance, surgical, calf length 20-30 mm Hg M79.89 M79.606, 01/06/22 10:58:00 EDT, Supply Start Date: 01/06/22 Status: Ordered fluticasone 50 mcg/inh nasal spray See Instructions, USE 1 SPRAY(S) INTO EACH NOSTRIL TWICE A DAY, # 16 Gm, 5 Refills, Maintenance, 02/18/22 10:02:00 EDT, [facility], 30, USE 1 SPRAY(S) INTO EACH NOSTRIL TWICE A DAY, 175, cm, 01/06/22 10:34:00 EDT, Height, 78.3, kg, 12/26/21 19... Start Date: 02/18/22 Status: Ordered folic acid 1 mg oral tablet 1 mg, 1, tablet, By Mouth, Daily, # 90 tablet, Refills 4, Tot. Refills 4, Maintenance, 10/27/21 10:40:00 EDT, Route to Pharmacy Electronically, [facility], Partial fill upon patient request if the prescription is for a schedule II opioid drug.... Start Date: 10/27/21 Stop Date: 01/20/23 Status: Ordered furosemide 20 mg oral tablet 1, tablet, By Mouth, Daily, note dose change, # 30 tablet, Refills 2, Tot. Refills 2, Maintenance, 04/09/22 15:53:00 EDT, Route to Pharmacy Electronically, [facility], 175, cm, 04/09/22 15:34:00 EDT, Height, 78.3, kg, 12/26/21 19:05:00 EDT, Start Date: 04/09/22 Stop Date: 07/08/22 Status: Ordered gabapentin 300 mg oral capsule 300 mg, 1, capsule, By Mouth, Daily at bedtime, note dose change, # 90 capsule, Refills 4, Tot. Refills 4, Maintenance, 04/09/22 15:53:00 EDT, Route to Pharmacy Electronically, [facility], Partial fill upon patient request if the prescription... Start Date: 04/09/22 Stop Date: 07/03/23 Status: Ordered hydrOXYzine hydrochloride 25 mg oral tablet 1 TO 2 TABLETS, By Mouth, 3 times a day, PRN NEEDED FOR ANXIETY (VIAL), # 60 tablet, 11 Refills,Maintenance, 03/13/22 8:38:00 EDT, [facility], 175, cm, 01/06/22 10:34:00 EDT, Height, 78.3, kg, 12/26/21 19:05:00 EDT, Dry Weight Start Date: 03/13/22 Status: Ordered lactulose 10 gm/15 ml oral syrup See Instructions, TAKE 30ML BY MOUTH THREE TIMES DAILY NEEDED TO ACHEIVE 3-4 BOWL MOVEMENTS PER DAY, # 3,000 mL, 10 [facility]ills[facility], 30, TAKE 30ML BY MOUTH THREE TIMES DAILY NEEDED TO ACHEIVE 3-4 BOWL MOVEMENTS PER DAY, 174, cm, 02/12... Start Date: 07/02/21 Status: Ordered lidocaine 0.5% topical gel 1 application, Topically, 3 times a day, # 120 Gm, 0 Refills, Acute 12/30/22 17:23:00 EDT, 12/30/2216:23:00 EDT, Gel, [facility], Partial fill upon patient request if the prescription is fora schedule II opioid drug., 1 application Topically... Start Date: 12/30/21 Stop Date: 12/30/22 Status: Ordered Lidoderm 5% film 1 patch, Topically, Daily, remove patches after 12 hours NSAIDS contraindicated High dose tylenol contraindicated, # 30 patch, 5 Refills, Maintenance, 12/26/21 9:33:00 EDT, [facility], Partial fill upon patient request if the prescription i... Start Date: 12/26/21 Status: Ordered magnesium oxide 400 mg oral tablet 1 tablet, By Mouth, 2 times a day, # 60 tablet, 11 Refills, Maintenance, 03/13/22 8:37:00 EDT, [facility], 175, cm, 01/06/22 10:34:00 EDT, Height, 78.3, kg, 12/26/21 19:05:00 EDT, Dry Weight Start Date: 03/13/22 Status: Ordered Melatonin 3 mg oral tablet 1 tablet, By Mouth, Daily at bedtime, PRN NEEDED FOR INSOMNIA (PACKAGE IN TRAY), # 60 tablet, 5 Refills, Maintenance, 06/02/21 16:17:00 EST, [facility], 28, 1 tablet By Mouth Daily at bedtime,PRN: NEEDED FOR INSOMNIA (PACKAGE IN TRAY), 17... Start Date: 06/02/21 Status: Ordered MiraLax Powder 1 pack/packet = 17 Gm, By Mouth, 2 times a day, PRN Constipation, 0 Refills, Maintenance, 08/28/21 10:25:00 EDT, Powder, Partial fill upon patient request if the prescription is for a schedule II opioid drug. Start Date: 08/28/21 Status: Ordered pantoprazole 40 mg oral delayed release tablet = 40 mg, By Mouth, Daily, # 30 each, 5 Refills, Maintenance, 10/21/21 10:15:00 EDT, [facility] Tablet, 175,cm, 10/10/21 16:04:00 EDT, Height, 87, kg, 09/27/21 21:30:00 EDT, Dry Weight Start Date: 10/21/21 Stop Date: 04/19/22 Status: Ordered PARoxetine 10 mg oral tablet 5 mg, 0.5, tablet, By Mouth, Daily, # 45 tablet, Refills 1, Tot. Refills 1, Maintenance, 04/09/22 16:00:00 EDT, Route to Pharmacy Electronically, [facility], Partial fill upon patient requestif the prescription is for a schedule II opioid remedios... Start Date: 04/09/22 Stop Date: 10/06/22 Status: Ordered Potassium Chloride (Eqv-K-Tab) 20 mEq oral tablet, extended release 2 tablet, By Mouth, Daily, # 60 tablet, 1 Refills, Maintenance, 03/13/22 12:37:00 EDT, [id number], 175, cm, 01/06/22 10:34:00 EDT, Height, 78.3, kg, 12/26/21 19:05:00 EDT, Dry Weight Start Date: 03/13/22 Status: Ordered pyridoxine 50 mg oral tablet 50 mg, 1, tablet, By Mouth, Daily, for 90 days, # 90 tablet, Refills 4, Tot. Refills 4, Acute 01/15/23 11:42:00 EDT, 10/22/21 11:42:00 EDT, Route to Pharmacy Electronically, [facility], Partial fill upon patient request if the prescription is... Start Date: 10/22/21 Stop Date: 01/15/23 Status: Ordered R aircast ankle-stirrup support brace R aircast ankle-stirrup support brace, See Instructions, # 1 each, Refills 0, Tot. Refills 0, Maintenance, Dx: R inversion ankle sprain s93.409a, 01/06/22 12:31:00 EDT, Supply Start Date: 01/06/22 Status: Ordered sildenafil 50 mg oral tablet 1 tablet = 50 mg, By Mouth, Daily, 1 hour before sexual activity, # 5 tablet, 0 Refills, Maintenance, 03/12/22 17:21:00 EDT, Tablet, [facility]/pharmacy #[id number], Partial fill upon patient request if the prescription is for a schedule II opioid drug., 175, cm,... Start Date: 03/12/22 Status: Ordered Tab-A-Jesse oral tablet 1 tablet, By Mouth, Daily, # 90 tablet, 9 Refills, [facility], 28, TAKE 1 TABLET BY MOUTH ONCE A DAY, 174, cm, 07/14/21 8:16:00 EST, Height, 81, kg, 02/27/21 14:06:00 EDT, Dry Weight Start Date: 07/22/21 Status: Ordered traZODone 50 mg oral tablet See Instructions, TAKE 1 TO 2 TABLETS BY MOUTH AT BEDTIME (ONE DOSE IN VIAL), # 60 tablet, Refills 0, Instructions Replace Required Details, Route to Pharmacy Electronically, [facility], 175,cm, 01/06/22 10:34:00 EDT, Height, 78.3, kg, 12/26/... Start Date: 01/30/22 Status: Ordered traZODone 50 mg oral tablet See Instructions, TAKE 2-3 TABLETS BY MOUTH AT BEDTIME (ONE DOSE IN VIAL), # 90 tablet, Refills 5, Tot. Refills 5, Maintenance, 12/26/21 9:21:00 EDT, Instructions Replace Required Details, Route to Pharmacy Electronically, [facility], 170, cm,... Start Date: 12/26/21 Status: Ordered Vitamin B1 100 mg oral tablet 1, tablet, By Mouth, Daily, # 90 tablet, Refills 3, Maintenance, 03/13/22 8:37:00 EDT, Route to Pharmacy Electronically, [facility], 175, cm, 01/06/22 10:34:00 EDT, Height, 78.3, kg, 12/26/2218:05:00 EDT, Dry Weight Start Date: 03/13/22 Status: Ordered Xifaxan 550 mg oral tablet 1 tablet, By Mouth, 2 times a day, # 60 tablet, 1 Refills, Maintenance, 04/10/22 16:49:00 EDT, [facility], 175, cm, 04/09/22 15:34:00 EDT, Height, 78.3, kg, 12/26/21 19:05:00 EDT, Dry Weight Start Date: 04/10/22 Status: Ordered Problem List Condition Confirmation Course [...] on: 02[birth year] Sex Patient Care team information Personnel Name: Jany Baig DO Address: Address: [address] [place] [address] [facility] [place], [place] [address]
--- OUTSIDE RECORDS SUMMARY | 2023-12-15 20:44 | XMS_ITS | Continuity of Care Document ---
Author Organization [facility] Address [address] [place] [address]- Care Team Providers Care Disc Pad Plate Filler Name Role Phone Jany Baig DO Primary Care Physician [facility] 08[facility]22 - 09/11/22 [facility] [address] [place] [id number]- [place] Allergies, Adverse Reactions, Alerts Substance Reaction [...] acel (oldterm) 08/02/12 Give n 1Result Comment: [facility]: [id number] 2Result Comment: [04/29/2017] [id number] 3Admin Note: FLUARIX 4Admin Note: 3 RDINJ 5Admin Note: #2 Medications acamprosate 333 mg oral delayed release tablet 1 tablet = 333 mg, By Mouth, 3 times a day, # 90 tablet, 4 Refills, Maintenance, 09/03/22 14:59:00 EDT, EC Tablet, [facility], Partial fill upon patient request if the prescription is for a schedule II opioid drug., 169, cm, 09/03/22 14:21:00... Start Date: 09/03/22 Status: Ordered amLODIPine 5 mg oral tablet See Instructions, TAKE 1 TABLET BY MOUTH ONCE A DAY^1R1, # 30 tablet, 5 Refills, Maintenance, 05/13/22 16:24:00 EST, [facility], 175, cm, 04/09/22 15:34:00 EDT, Height, 78.3, kg, 12/26/21 19:05:00 EDT, Dry Weight Start Date: 05/13/22 Status: Ordered baclofen 10 mg oral tablet See Instructions, TAKE 1 TABLET BY MOUTH THREE TIMES DAILY, # 90 tablet, Refills 0, Maintenance, 08/07/22 12:26:00 EST, Instructions Replace Required Details, Route to Pharmacy Electronically, [facility], 176, cm, 08/07/22 11:37:00 EST, Height... Start Date: 08/07/22 Status: Ordered Co Q-10 100 mg oral capsule See Instructions, TAKE 1 CAPSULE BY MOUTH FOUR TIMES DAILY, # 120 capsule, 6 Refills, Maintenance, 08/07/22 12:13:00 EST, [facility], 176, cm, 08/07/22 11:37:00 EST, Height, 79.8, kg, 07/31/22 22:40:00 EST, Dry Weight Start Date: 08/07/22 Status: Ordered Compression Stockings See Instructions, # 4 each, Refills 2, Tot. Refills 2, Maintenance, surgical, calf length 20-30 mm Hg M79.89 M79.606, 01/06/22 10:58:00 EDT, Supply Start Date: 01/06/22 Status: Ordered Eucerin Original Healing Cream Eucerin [...] Gm, 11 Refills, Maintenance, 08/07/22 12:12:00 EST, [facility]/pharmacy #[id number], 30, USE 1 SPRAY(S) INTO EACH NOSTRIL TWICE A DAY, 176, cm,08/07/22 11:37:00 EST, Height, 79.8, kg, 07/31/22 2... Start Date: 08/07/22 Status: Ordered folic acid 1 mg oral tablet 1 mg, 1, tablet, By Mouth, Daily, # 90 tablet, Refills 4, Tot. Refills 4, Maintenance, 10/27/21 10:40:00 EDT, Route to Pharmacy Electronically, [facility], Partial fill upon patient request if the prescription is for a schedule II opioid drug.... Start Date: 10/27/21 Stop Date: 01/20/23 Status: Ordered furosemide 20 mg oral tablet 1, tablet, By Mouth, Daily, R1., # 30 tablet, Refills 5, Tot. Refills 5, Maintenance, 09/03/22 14:50:00 EDT, Route to Pharmacy Electronically, [facility], 169, cm, 09/03/22 14:21:00 EDT, Height, 69, kg, 08/16/22 1:04:00 EST, Dry Weight Start Date: 09/03/22 Status: Ordered gabapentin 300 mg oral capsule 300 mg, 1, capsule, By Mouth, 2 times a day, note dose/frequency change, # 180 capsule, Refills 4, Tot. Refills 4, Maintenance, 09/03/22 14:55:00 EDT, Route to Pharmacy Electronically, [facility], 169, cm, 09/03/22 14:21:00 EDT, Height, 69, kg... Start Date: 09/03/22 Stop Date: 11/27/23 Status: Ordered hydrOXYzine hydrochloride 25 mg oral tablet 1 TO 2 TABLETS, By Mouth, Daily at bedtime, PRN NEEDED FOR ANXIETY (VIAL), # 60 tablet, 11 Refills, Maintenance, 03/13/22 8:38:00 EDT, [facility], 175, cm, 01/06/22 10:34:00 EDT, Height, 78.3, kg, 12/26/21 19:05:00 EDT, Dry Weight Start Date: 03/13/22 Status: Ordered lactulose 10 gm/15 ml oral syrup See Instructions, TAKE 30ML BY MOUTH THREE TIMES DAILY NEEDED TO ACHEIVE 3-4 BOWL MOVEMENTS PER DAY, # 3,000 mL, 10 Refills, [facility], 30, 174, cm, 02/27/21 15:17:00 EDT, Height, 81, kg,02/27/21 14:06:00 EDT, Dry Weight Start Date: 07/02/21 Status: Ordered Lidoderm 5% film 1 patch, Topically, Daily, remove patches after 12 hours NSAIDS contraindicated High dose tylenol contraindicated remove patches after 12 hours Nueropathy, # 30 patch, 5 Refills, Maintenance, 09/03/22 16:34:00 EDT, [facility], Partial klaudia... Start Date: 09/03/22 Status: Ordered magnesium oxide 400 mg oral tablet 1 tablet, By Mouth, 2 times a day, # 60 tablet, 11 Refills, Maintenance, 03/13/22 8:37:00 EDT, [facility], 175, cm, 01/06/22 10:34:00 EDT, Height, 78.3, kg, 12/26/21 19:05:00 EDT, Dry Weight Start Date: 03/13/22 Status: Ordered Melatonin 3 mg oral tablet 1 tablet, By Mouth, Daily at bedtime, PRN NEEDED FOR INSOMNIA (PACKAGE IN TRAY)^1R4, # 60 tablet, 5 Refills, Maintenance, 06/12/22 18:11:00 EST, [facility], 60, TAKE 1 TABLET BY MOUTH AT BEDTIME NEEDED FOR INSOMNIA (PACKAGE IN TRAY)^1R4,... Start Date: 06/12/22 Status: Ordered pantoprazole 40 mg oral delayed release tablet 1 tablet, By Mouth, Daily, ^1R1., # 90 tablet, 4 Refills, Maintenance, 09/03/22 14:56:00 EDT, 169, cm, 09/03/22 14:21:00 EDT, Height, 69, kg, 08/16/22 1:04:00 EST, Dry Weight Start Date: 09/03/22 Stop Date: 11/27/23 Status: Ordered PARoxetine 10 mg oral tablet 10 mg, 1, tablet, By Mouth, Daily, # 90 tablet, Refills 1, Tot. Refills 1, Maintenance, 09/03/22 14:53:00 EDT, Route to Pharmacy Electronically, [facility], Partial fill upon patient request if the prescription is for a schedule II opioid drug... Start Date: 09/03/22 Stop Date: 03/02/23 Status: Ordered PHENobarbital 30 mg oral tablet See Instructions, Taper 09/08-Day 1 -90mg Daily Day 2-3-60mg BID Day 4-5 30mg BID, # 15 tablet, 0 Refills, Maintenance, 09/08/22 15:05:00 EDT, [facility], Partial fill upon patient request if the prescription is for a schedule II op... Start Date: 09/08/22 Status: Ordered pyridoxine 50 mg oral tablet 50 mg, 1, tablet, By Mouth, Daily, for 90 days, # 90 tablet, Refills 4, Tot. Refills 4, Acute 01/15/23 11:42:00 EDT, 10/22/21 11:42:00 EDT, Route to Pharmacy Electronically, [facility], Partial fill upon patient request if [...] Mouth, Daily, # 90 tablet, 9 Refills, 08/07/22 12:27:00 EST, [facility]/pharmacy #[id number], 28, 1tablet By Mouth Daily, 176, cm, 08/07/22 11:37:00 EST, Height, 79.8, kg, 07/31/22 22:40:00 EST, DryWeight Start Date: 08/07/22 Status: Ordered traZODone 50 mg oral tablet 2 tablets, By Mouth, Daily at bedtime, # 60 each, Refills 5, Tot. Refills 5, Maintenance, 09/03/22 17:13:00 EDT, Route to Pharmacy Electronically, [facility], 169, cm, 09/03/22 14:21:00 EDT, Height, 69, kg, 08/16/22 1:04:00 EST, Dry Weight Start Date: 09/03/22 Status: Ordered Vitamin B1 100 mg oral tablet 1, tablet, By Mouth, Daily, # 90 tablet, Refills 3, Maintenance, 03/13/22 8:37:00 EDT, Route to Pharmacy Electronically, [facility], 175, cm, 01/06/22 10:34:00 EDT, Height, 78.3, kg, 12/26/2218:05:00 EDT, Dry Weight Start Date: 03/13/22 Status: Ordered Xifaxan 550 mg oral tablet 1 tablet, By Mouth, 2 times a day, ^1R1,1R4., # 60 tablet, 1 Refills, Maintenance, 06/12/22 18:10:00 EST[facility], 179, cm, 06/08/22 7:37:00 EST, Height, [...] Team Personnel Name: Alexandra Colmenares RN Position: [facility] ED RN W/OE and Tasks Member Role: Primary Care Nurse Name: Garima Manzano RN Position: [facility] RN Member Role: Primary Care Nurse Name: Malgorzata Marinelli RN Position: [facility] RN Member Role: Primary Care Nurse Name: Joyce Roach RN Position: [facility] RN Member Role: Primary Care Nurse Name: Mary Suazo RN Position: [facility] RN Member Role: Primary Care Nurse Name: Andres Pressley RN Position: [facility] RN Member Role: Primary Care Nurse Name: Jany Baig DO Position: [facility] Primary Care Physician Member Role: PCP Address: Address: [address] [place] [address] Adult [facility] [place] [address]- [place] Name: Neida Ballard RN Position: [facility] RN Member Role: Primary Care Nurse Name: Kaye Payne RN Position: [facility] RN Member Role: Primary Care Nurse Name: Garima Hutchinson Position: S RN Member Role: Primary Care Nurse Name: Malgorzata Austin Position: [facility] RN Member Role: Primary Care Nurse Name: Torrie Hernandez RN Position: [facility] OB RN Member Role: Primary Care Nurse Name: Gretchen Knutson RN Position: [facility] SN RN Member Role: Primary Care Nurse Name: Aislinn Mckee RN Position: [facility] RN Member Role: Primary Care Nurse Name: Ashley Mcelroy Position: [facility] RN Member Role: Primary Care Nurse Name: Cody Garcia Position: [facility] Associate Professional Member Role: Lifetime Consulting Provider Address: Address: [address] [place] [address]- Name: Ge Covarrubias RN Position: [facility] RN Member Role: Primary Care Nurse Name: Orin Elmore RN Position: [facility] ED RN W/OE and Tasks Member Role: Primary Care Nurse Name: Allegra Liu RN Position: [facility] PCO RN Member Role: Primary Care Nurse Name: Shayan Pandya MD Position: [facility] Renal MD Member Role: Lifetime Consulting Physician Address: Address: [address] [place] [address] [address] [facility], [place] [address]- Name: Darlene Rodrigez RN Position: [facility] RN Member Role: Primary Care Nurse Name: Kwan Mills RN Position: [facility] RN Member Role: Primary Care Nurse Name: Dolores Can RN Position: [facility] RN Member Role: Primary Care Nurse Name: Kim Rendon RN Position: [facility] RN Member Role: Primary Care Nurse Name: Monica Rowell RN Position: [facility] RN Member Role: Primary Care Nurse Care Team Related Persons Name: MARLEN CABEZAS Address: home [address] [place] [id number] Name: RAULITO MARLEN Address: [address] [address] Name: NICK CABEZAS Name: GEMA CABEZAS Address: [address] [address]
--- OUTSIDE RECORDS SUMMARY | 2023-12-15 20:44 | XMS_ITS | Continuity of Care Document ---
Author Organization [facility] Address [address] [place] [address]- Care Team Providers Care Clutch Assembler Name Role Phone Jany Baig DO Primary Care Physician En[place] [facility] [place] Date(s): 06/01/22 - 07/01/22 [facility] [address] [place] [address]- Attending Physician: Venice Salmon Admitting Physician: Venice [...] acel (oldterm) 08/02/12 Give n 1Result Comment: [facility]: [id number] 2Result Comment: [04/29/2017] [id number] 3Admin Note: FLUARIX 4Admin Note: 3 RDINJ 5Admin Note: #2 Medications acetaminophen 500 mg oral tablet 1 tablet, By Mouth, 4 times a day, PRN NEEDED FOR PAIN, MAX 4, PER DAY (VIAL., # 50 tablet, 11 Refills, Maintenance, 03/13/22 8:37:00 EDT, [facility], 175, cm, 01/06/22 10:34:00 EDT, Height, 78.3, kg, 12/26/21 19:05:00 EDT, Dry Weight Start Date: 03/13/22 Status: Ordered amLODIPine 5 mg oral tablet See Instructions, TAKE 1 TABLET BY MOUTH ONCE A DAY^1R1, # 30 tablet, 5 Refills, Maintenance, 05/13/22 16:24:00 EST, [facility], 175, cm, 04/09/22 15:34:00 EDT, Height, 78.3, kg, 12/26/21 19:05:00 EDT, Dry Weight Start Date: 05/13/22 Status: Ordered Co Q-10 100 mg oral capsule 1 capsule, By Mouth, 4 times a day, # 120 capsule, 5 Refills, Maintenance, 04/09/22 15:55:00 EDT, [facility], 175, cm, 04/09/22 15:34:00 EDT, Height, 78.3, kg, 12/26/21 19:05:00 EDT, Dry Weight Start Date: 04/09/22 Status: Ordered Compression Stockings See Instructions, # 4 each, Refills 2, Tot. Refills 2, Maintenance, surgical, calf length 20-30 mm Hg M79.89 M79.606, 01/06/22 10:58:00 EDT, Supply Start Date: 01/06/22 Status: Ordered Docusate Sodium Capsule 100 mg, 1, capsule, By Mouth, 2 times a day, Refills 0, Maintenance, 06/09/22 16:16:00 EST, Partialfill upon patient request if the prescription is for a schedule II opioid drug. Start Date: 06/09/22 Status: Ordered fluticasone 50 mcg/inh nasal spray See Instructions, USE 1 SPRAY(S) INTO EACH NOSTRIL TWICE A DAY, # 16 Gm, 5 Refills, Maintenance, 02/18/22 10:02:00 EDT, [facility], 30, USE 1 SPRAY(S) INTO EACH [...] 04/09/22 15:53:00 EDT, Route to Pharmacy Electronically, [facility], 175, cm, 04/09/22 15:34:00 EDT, Height, [...] Date: 06/09/22 Stop Date: 06/16/22 Status: Ordered gabapentin 300 mg oral capsule 300 mg, 1, capsule, By Mouth, Daily at bedtime, note dose change, # 90 capsule, Refills 4, Tot. Refills 4, Maintenance, 04/09/22 15:53:00 EDT, Print Requisition, Partial fill upon patient request if the prescription is for a schedule II opioid drug.,... Start Date: 04/09/22 Stop Date: 07/03/23 Status: Ordered Heparin Inj 1 mL = 5,000 units, Subcutaneous Injection, 3 times a day, 0 Refills, Maintenance, 06/09/22 16:15:00 EST, Injection, Partial fill upon patient request if the prescription is for a schedule II opioid drug. Start Date: 06/09/22 Status: Ordered hydrOXYzine hydrochloride 25 mg oral tablet 1 TO 2 TABLETS, By Mouth, 3 times a day, PRN NEEDED FOR ANXIETY (VIAL), # 60 tablet, 11 Refills,Maintenance, 03/13/22 8:38:00 EDT, [email or web address], [facility], cm, 01/06/22 10:34:00 EDT, Height, 78.3, kg, 12/26/21 19:05:00 EDT, Dry Weight Start Date: 03/13/22 Status: Ordered lactulose 10 gm/15 ml oral syrup See Instructions, TAKE 30ML BY MOUTH THREE TIMES DAILY NEEDED TO ACHEIVE 3-4 BOWL MOVEMENTS PER DAY, # 3,000 mL, 10 Refills, [email or web address], 30, TAKE 30ML BY MOUTH THREE TIMES DAILY NEEDED TO ACHEIVE 3-4 BOWL MOVEMENTS PER DAY, 174, cm, 02/12... Start Date: 07/02/21 Status: Ordered lidocaine 0.5% topical gel 1 application, Topically, 3 times a day, # 120 Gm, 0 Refills, Acute 12/30/22 17:23:00 EDT, 12/30/2216:23:00 EDT, Gel, [facility] tablet, 11 Refills, Maintenance, 03/13/22 8:37:00 EDT, [facility], 175, cm, 01/06/22 10:34:00 EDT, Height, 78.3, kg, 12/26/21 19:05:00 EDT, Dry Weight Start Date: 03/13/22 Status: Ordered Melatonin 3 mg oral tablet 1 tablet, By Mouth, Daily at bedtime, PRN NEEDED FOR INSOMNIA (PACKAGE IN TRAY)^1R4, # 60 tablet, 5 Refills, Maintenance, 06/12/22 18:11:00 EST, [facility], 60, TAKE 1 TABLET BY MOUTH AT BEDTIME NEEDED FOR INSOMNIA (PACKAGE IN TRAY)^1R4,... Start Date: 06/12/22 Status: Ordered MiraLax Powder 1 pack/packet = 17 Gm, By Mouth, 2 times a day, PRN Constipation, 0 Refills, Maintenance, 08/28/21 10:25:00 EDT, Powder, Partial fill upon patient request if the prescription is for a schedule II opioid drug. Start Date: 08/28/21 Status: Ordered pantoprazole 40 mg oral delayed release tablet See Instructions, TAKE 1 TABLET BY MOUTH ONCE A DAY^1R1, # 30 tablet, 2 Refills, Maintenance, 05/13/22 16:27:00 EST, 175, cm, 04/09/22 15:34:00 EDT, Height, 78.3, kg, 12/26/21 19:05:00 EDT, Dry Weight Start Date: 05/13/22 Status: Ordered PARoxetine 10 mg oral tablet 5 mg, 0.5, tablet, By Mouth, Daily, # 45 tablet, Refills 1, Tot. Refills 1, Maintenance, 04/09/22 16:00:00 EDT, Route to Pharmacy Electronically, [facility], Partial fill upon patient requestif the prescription is for a schedule II opioid remedios... Start Date: 04/09/22 Stop Date: 10/06/22 Status: Ordered Potassium Chloride (Eqv-K-Tab) 20 mEq oral tablet, extended release 2 tablet, By Mouth, Daily, # 180 tablet, 1 Refills, Maintenance, 05/13/22 9:48:00 EST, [facility], 175, cm, 04/09/22 15:34:00 EDT, Height, 78.3, kg, 12/26/21 19:05:00 EDT, Dry Weight Start Date: 05/13/22 Stop Date: 11/09/22 Status: Ordered pyridoxine 50 mg oral tablet 50 mg, 1, tablet, By Mouth, Daily, for 90 days, # 90 tablet, Refills 4, Tot. Refills 4, Acute 01/15/23 11:42:00 EDT, 10/22/21 11:42:00 EDT, Route to Pharmacy Electronically, [facility], Partial fill upon patient request if [...] 0 Refills, Maintenance, 03/12/22 17:21:00 EDT, Tablet, [id number], Partial fill upon patient request if the prescription is for a schedule II opioid drug., 175, cm,... Start Date: 03/12/22 Status: Ordered Tab-A-Jesse oral tablet 1 tablet, By Mouth, Daily, # 90 tablet, 9 Refills, [facility], 28, TAKE 1 TABLET BY MOUTH ONCE A DAY, 174, cm, 07/14/21 8:16:00 EST, Height, 81, kg, 02/27/21 14:06:00 EDT, Dry Weight Start Date: 07/22/21 Status: Ordered traZODone 50 mg oral tablet 2 TO 3 TABLETS, By Mouth, Daily at bedtime, #28 VIAL)^2R4., # 90 tablet, Refills 5, Maintenance, 06/12/22 18:11:00 EST, Route to Pharmacy Electronically, [facility], 179, cm, 06/08/22 7:37:00EST, Height, 84, kg, 06/01/22 12:27:00 EST, Dry Weight Start Date: 06/12/22 Status: Ordered Vitamin B1 100 mg oral tablet 1, tablet, By Mouth, Daily, # 90 tablet, Refills 3, Maintenance, 03/13/22 8:37:00 EDT, [facility] to [facility]ically, [facility], 175, cm, 01/06/22 10:34:00 EDT, Height, 78.3, kg, 12/26/2218:05:00 EDT, Dry Weight Start Date: 03/13/22 Status: Ordered Xifaxan 550 mg oral tablet 1 tablet, By Mouth, 2 times a day, ^1R1,1R4., # 60 tablet, 1 Refills, Maintenance, 06/12/22 18:10:00 EST, [facility], 179, cm, 06/08/22 7:37:00 EST, Height, [...] last 30 days entered on: 02/04/19 [facility] Consult [facility] * Event Display: Inpatient Consult Note, Non- Authored Date: Note * Event Display: Non Lab Results Authored Date: * Event Display: Non Lab Results Authored Date: * Event Display: Laboratory Result Scanned Authored Date: Patient Care team information Care Team Personnel Name: Alexandra Colmenares RN Position: [facility] ED RN W/OE and Tasks Member Role: Primary Care Nurse Name: Garima Manzano RN Position: [facility] RN Member Role: Primary Care Nurse Name: Malgorzata Marinelli RN Position: [facility] RN Member Role: Primary Care Nurse Name: Joyce Roach RN Position: [facility] RN Member Role: Primary Care Nurse Name: Mary Suazo RN Position: [facility] RN Member Role: Primary Care Nurse Name: Danyel Davis RN Position: [facility] RN Member Role: Primary Care Nurse Name: Yenny Bernstein Position: [facility] RN Member Role: Primary Care Nurse Name: Andres Pressley RN Position: [facility] RN Member Role: Primary Care Nurse Name: Jany Baig DO Position: [facility] Primary Care Physician Member Role: PCP Address: Address: [address] [place] [address] Adult & [place] [address]- [place] Name: Neida Ballard RN Position: [facility] RN Member Role: Primary Care Nurse Name: Kaye Payne RN Position: [facility] RN Member Role: Primary Care Nurse Name: Garima Hutchinson Position: [facility] RN Member Role: Primary Care Nurse Name: Malgorzata Austin Position: [facility] RN Member Role: Primary Care Nurse Name: Torrie Hernandez RN Position: [facility] OB RN Member Role: Primary Care Nurse Name: Gretchen Knutson RN Position: [facility] SN RN Member Role: Primary Care Nurse Name: Aislinn Mckee RN Position: [facility] RN Member Role: Primary Care Nurse Name: Ashley Mcelroy Position: [facility] RN Member Role: Primary Care Nurse Name: Cody Garcia Position: [facility] Associate Professional Member Role: Lifetime Consulting Provider Address: Address: [address] [place] [address]- Name: Ge Covarrubias RN Position: [facility] RN Member Role: Primary Care Nurse Name: Orin Elmore RN Position: [facility] ED RN W/OE and Tasks Member Role: Primary Care Nurse Name: Allegra Liu RN Position: [facility] PCO RN Member Role: Primary Care Nurse Name: Shayan Pandya MD Position: [facility] Renal MD Member Role: Lifetime Consulting Physician Address: Address: [address] [place] [address] [address] [facility], [place] [address]- Name: Darlene Rodrigez RN Position: [facility] RN Member Role: Primary Care Nurse Name: Kwan Mills RN Position: [facility] RN Member Role: Primary Care Nurse Name: Dolores Can RN Position: [facility] RN Member Role: Primary Care Nurse Name: Kim Rendon RN Position: [facility] RN Member Role: Primary Care Nurse Name: Monica Rowell RN Position: [facility] RN Member Role: Primary Care Nurse Care Team Related Persons Name: LEONILA CABEZASARA Address: [address] [address] Name: MARLEN CABEZAS Address: home [address] [place] [id number] Name: NICK CABEZAS Name: GEMA CABEZAS Address: home [address] [place] [address]
--- OUTSIDE RECORDS SUMMARY | 2023-12-15 20:45 | XMS_ITS | Continuity of Care Document ---
Author Organization [facility] Address [address] [place] [address]- Care Team Providers Care Designer Architect Name Role Phone Jany Baig DO Primary Care Physician [place] [facility] [place]23 [place] 08/25/23 [facility] [address] [place], [place] [address] Allergies, Adverse Reactions, Alerts Substance Reaction Severity [...] acel (oldterm) 08/02/12 Give n 1Result Comment: [facility]: [id number] 2Result Comment: [04/29/2017] [id number] 3Admin Note: FLUARIX 4Admin Note: 3 RDINJ 5Admin Note: #2 Medications acamprosate 333 mg oral delayed release tablet 2 tablet = 666 mg, By Mouth, 3 times a day, # 180 tablet, 1 Refills, Maintenance, 07/28/23 11:04:00EST, EC Tablet, [facility], Partial fill upon patient request if the [...] tablet, 2 Refills, Maintenance, 07/28/23 11:06:00 EST, [facility], 175, cm, 07/28/23 9:11:00 EST, Height, 61.3, kg, 07/12/23 23:27:00 EST, Dry Weight Start Date: 07/28/23 Status: Ordered amLODIPine 5 mg oral tablet 1 tablet, By Mouth, Daily, ^1R1., # 30 tablet, 2 Refills, Maintenance, 06/02/23 8:00:00 EST, [facility], 175, cm, 03/22/23 6:50:00 EDT, [...] 07/28/23 11:10:00 EST, Route to Pharmacy Electronically, [facility], Partial fill upon patient request if [...] Gm, 12 Refills, Maintenance, 07/28/23 11:06:00 EST, [facility], 28, APPLY TOPICALLY TO AFFECTED AREA(S) [...] Gm, 1 Refills, Maintenance, 07/28/23 12:07:00 EST, [facility], 30, USE 1 SPRAY(S) INTO EACH [...] 07/28/23 12:08:00 EST, Route to Pharmacy Electronically, [facility], 175, cm, 07/28/23 9:11:00 EST, Height, 61.3, kg, 07/12/23 23:27:00 EST, Dry Weight Start Date: 07/28/23 Status: Ordered furosemide 20 mg oral tablet 20 mg, 1, tablet, By Mouth, Every other day, # 30 tablet, Refills 1, Tot. Refills 1, Maintenance, 07/28/23 12:08:00 EST, Route to Pharmacy Electronically, [facility], Partial fill upon patient request if the prescription is for a schedule II... Start Date: 07/28/23 Status: Ordered gabapentin 300 mg oral capsule 300 mg, 1, capsule, By Mouth, Daily at bedtime, note dose/frequency change, # 30 capsule, Refills 1, Tot. Refills 1, Maintenance, 07/28/23 12:09:00 EST, Route to Pharmacy Electronically, [facility], 175, cm, 07/28/23 9:11:00 EST, Height, 61.... [...] tablet, 3 Refills, Maintenance, 07/28/23 12:10:00 EST, [facility], 175, cm, 07/28/23 9:11:00 EST, Height, 61.3, kg,07/12/23 23:27:00 EST, Dry Weight Start Date: 07/28/23 Status: Ordered lactulose 10 gm/15 ml oral syrup 30 mL = 20 Gm, By Mouth, 3 times a day, for 30 days, # 2,700 mL, 2 Refills, Acute 10/26/23 12:13:00EDT, 07/28/23 12:13:00 EST, Syrup, [facility], Partial fill upon patient request if [...] 60 tablet, 11 Refills, Maintenance,07/28/23 12:09:00 EST, [facility], 175, cm, 07/28/23 9:11:00 EST, Height, [...] tablet, 5 Refills, Maintenance, 07/28/23 12:09:00 EST, [facility], 60, 1 tablet By Mouth Daily at bedtime,PRN: NEEDED FOR INSOMNIA (PACKAGE IN TRA... Start Date: 07/28/23 Status: Ordered Neurontin 300 mg oral capsule 300 mg, 1, capsule, By Mouth, Daily at bedtime, Maintenance, 07/15/23 13:22:00 EST, Partial fill upon patient request if the prescription is for a schedule II opioid drug. Start Date: 07/15/23 Status: Ordered pantoprazole 40 mg oral delayed [...] 07/28/23 12:11:00 EST, Route to Pharmacy Electronically, [facility], 175, cm, 07/28/23 9:11:00EST, Height, 61.3, [...] 07/28/23 12:12:00 EST, Route to Pharmacy Electronically, [facility], 175, cm, 07/28/23 9:11:00 EST, Height, 61.3, kg, 07/12/23 23:27:00 EST, Dry Weight Start Date: 07/28/23 Status: Ordered spironolactone 25 mg oral tablet 1, tablet, By Mouth, Daily, ^1R2., # 30 tablet, Refills 5, Tot. Refills 5, Maintenance, 04/14/23 12:41:00 EDT, Route to Pharmacy Electronically, [facility], 175, cm, 03/22/23 6:50:00 EDT, Height, 77.5, kg, 03/20/23 11:30:00 EDT, Dry Weight Start Date: 04/14/23 Status: Ordered Tab-A-Jesse oral tablet 1 tablet, By Mouth, Daily, R1., # 30 tablet, 5 Refills, Maintenance, 05/06/23 19:16:00 EST, [facility], 30, TAKE 1 TABLET [...] 02/26/23 10:11:00 EDT, Route to Pharmacy Electronically, [facility], 175, cm, 12/03/22 11:50:00 EDT, Height,84, kg, 02/12/23 11:30:00 EDT, Dry Weight Start Date: 02/26/23 Status: Ordered traZODone 50 mg oral tablet 2, tablet, By Mouth, Daily at bedtime, ^2R4., # 60 tablet, Refills 5, Tot. Refills 5, Maintenance, 07/28/23 12:12:00 EST, Route to Pharmacy Electronically, [facility], 175, cm, 07/28/23 9:11:00 EST, Height, 61.3, kg, 07/12/23 23:27:00 EST, D... Start Date: 07/28/23 Status: Ordered Urinal Urinal, See Instructions, # 1 each, Refills 3, Tot. Refills 3, Maintenance, Dx: Cirrhoisis, ambulatory dysfunction, incontinency, 11/13/22 11:17:00 EDT, Supply Start Date: 11/13/22 Status: Ordered Vitamin B1 100 mg oral tablet 1, tablet, By Mouth, Daily, # 90 tablet, Refills 3, Tot. Refills 3, Maintenance, 02/09/23 23:18:00 EDT, Route to Pharmacy Electronically, [facility], 175, cm, 12/03/22 11:50:00 EDT, Height, 88.9, kg, 10/21/22 20:41:00 EDT, Dry Weight Start Date: 02/09/23 Status: Ordered Vitamin B1 100 mg oral tablet 1, tablet, By Mouth, Daily, # 90 tablet, Refills 3, Tot. Refills 3, Maintenance, 07/28/23 12:12:00 EST, Route to Pharmacy Electronically, [facility], 175, cm, 07/28/23 9:11:00 EST, Height, 61.3, kg, 07/12/23 23:27:00 EST, Dry Weight Start Date: 07/28/23 Status: Ordered Vitamin B6 50 mg oral tablet 1, tablet, By Mouth, Daily, R1., # 90 tablet, Refills 4, Maintenance, 11/16/22 13:39:00 EDT, Route to Pharmacy Electronically, [facility], 175, cm, 11/13/22 10:42:00 EDT, Height, 88.9, kg, 10/21/22 20:41:00 EDT, Dry Weight Start Date: 11/16/22 Status: Ordered Vitamin B6 50 mg oral tablet 1, tablet, By Mouth, Daily, R1., # 90 tablet, Refills 4, Tot. Refills 4, Maintenance, 07/28/23 12:11:00 EST, Route to Pharmacy Electronically, [facility], 175, cm, 07/28/23 9:11:00 EST, Height, [...] 2 times a day, # 60 each, 1 Refills, Maintenance, 07/28/23 14:33:00 EST, [facility], 175, cm, 07/28/23 9:11:00 EST, Height, 61.3, kg, 07/12/23 23:27:00 EST, Dry Weight Start Date: 07/28/23 Status: Ordered Problem List Condition Confirmation Course [...] Active Overweight Confirmed Active Pancytopenia Confirmed Active Heart murmur, systolic 10 Confirmed [...] Team Personnel Name: Shira Galindo RN Position: S RN Member Role: Primary Care Nurse Name: Lisa Nunez RN Position: S RN Member Role: Primary Care Nurse Name: Alexandra Colmenares RN Position: [facility] ED RN W/OE and Tasks Member Role: Primary Care Nurse Name: Garima Manzano RN Position: [facility] RN Member Role: Primary Care Nurse Name: Malgorzata Marinelli RN Position: [facility] RN Member Role: Primary Care Nurse Name: Joyce Roach RN Position: [facility] ED RN W/OE and Tasks Member Role: Primary Care Nurse Name: Mary Suazo RN Position: [facility] RN Member Role: Primary Care Nurse Name: Lucina Peralta RN Position: [facility] RN Member Role: Primary Care Nurse Name: Maria Esther Craig LPN Position: [facility] RN Member Role: Primary Care Nurse Name: Andres Pressley RN Position: [facility] ED RN W/OE and Tasks Member Role: Primary Care Nurse Name: Jany Baig DO Position: [facility] Physician - Primary Care Member Role: PCP Address: Address: [address] [place] [address] Adult [place] [address]- Name: Kaye Payne RN Position: [facility] RN Member Role: Primary Care Nurse Name: Garima Curry RN Position: [facility] RN Member Role: Primary Care Nurse Name: Malgorzata Austin Position: [facility] RN Member Role: Primary Care Nurse Name: Ibeth Adams RN Position: [facility] RN Member Role: Primary Care Nurse Name: Torrie Hernandez RN Position: [facility] OB RN Member Role: Primary Care Nurse Name: Gretchen Knutson RN Position: [facility] SN RN Member Role: Primary Care Nurse Name: Aislinn Mckee RN Position: [facility] RN Member Role: Primary Care Nurse Name: Ashley Mcelroy Position: [facility] RN Member Role: Primary Care Nurse Name: Ashok Kevin RN Position: [facility] RN Member Role: Primary Care Nurse Name: Cody Garcia Position: [facility] Associate Professional Member Role: Lifetime Consulting Provider Address: Address: [address] [place] [address]- Name: Paige Nascimento RN Position: [facility] RN Member Role: Primary Care Nurse Name: Ge Covarrubias RN Position: [facility] RN Member Role: Primary Care Nurse Name: Orin Elmore RN Position: [facility] ED RN W/OE and Tasks Member Role: Primary Care Nurse Name: Allegra Liu RN Position: [facility] AMB Nurse Member Role: Primary Care Nurse Name: Shayan Pandya MD Position: [facility] Renal MD Member Role: Lifetime Consulting Physician Address: Address: [address] [facility] [address] [facility], [place] [address]- Name: Kimberley Pittman RN Position: [facility] RN Member Role: Primary Care Nurse Name: Darlene Rodrigez RN Position: [facility] RN Member Role: Primary Care Nurse Name: Dixie Duke RN Position: [facility] RN Member Role: Primary Care Nurse Name: Kwan Mills RN Position: [facility] ED RN W/OE and Tasks Member Role: Primary Care Nurse Name: Ingrid Verdugo RN Position: [facility] RN Member Role: Primary Care Nurse Name: Monica Rowell RN Position: [facility] RN Member Role: Primary Care Nurse Name: Jimi Fitzpatrick RN Position: [facility] RN Member Role: Primary Care Nurse Care Team Related Persons Name: DUCBRIANWU MARLEN Address: [address] [place] [address] Name: MARLEN CABEZAS Address: [address] [place] [address] Name: NICK CABEZAS Name: GEMA CABEZAS Address: [address] [place] [address] Name: ELTON CHENG Address: home [address] [place] [id number]
--- OUTSIDE RECORDS SUMMARY | 2023-12-15 20:45 | XMS_ITS | Continuity of Care Document ---
Author Organization [facility] Address [address] [place] [address]- Care Team Providers Care Call Or Contact Centre Team Leader Name Role Phone Jany Baig DO Primary Care Physician Encounter [facility] [place] Date(s): 03/25/23 - 04/24/23 [facility] [address] [place], [place] [address] Allergies, Adverse Reactions, Alerts Substance Reaction Severity [...] acel (oldterm) 08/02/12 Give n 1Result Comment: [facility]: [id number] 2Result Comment: [04/29/2017] [id number] 3Admin Note: FLUARIX 4Admin Note: 3 RDINJ 5Admin Note: #2 Medications acamprosate 333 mg oral delayed release tablet 1 tablet = 333 mg, By Mouth, 3 times a day, # 42 tablet, 4 Refills, Maintenance, 11/05/22 11:31:00 EDT, EC Tablet, [facility], Partial fill upon patient request if the prescription is for a schedule II opioid drug., 175, cm, 11/05/22 10:21:00... Start Date: 11/05/22 Stop Date: 01/14/23 Status: Ordered amLODIPine 5 mg oral tablet 1 tablet, By Mouth, Daily, ^1R1., # 30 tablet, 5 Refills, Maintenance, 12/22/22 7:20:00 EDT, [facility], 175, cm, 12/03/22 11:50:00 EDT, Height, 88.9, kg, 10/21/22 20:41:00 EDT, Dry Weight Start Date: 12/22/22 Status: Ordered baclofen 10 mg oral tablet See Instructions, TAKE ONE TABLET BY MOUTH THREE TIMES A DAY ^1R1,1R2,1R4, # 90 tablet, Refills 5, Tot. Refills 5, Maintenance, 01/14/23 17:55:00 EDT, Instructions Replace Required Details, Route to Pharmacy Electronically, [facility], 175, cm... Start Date: 01/14/23 Status: Ordered calcium (as carbonate)-vitamin D 500 mg-400 intl units oral tablet 1 tablet, By Mouth, Daily, ^1R1., # 28 tablet, 0 Refills, Maintenance, 12/01/22 16:12:00 [facility]T, [facility], 28, 1 tablet By Mouth Daily,Instr:^1R1., [...] capsule, 6 Refills, Maintenance, 12/03/22 12:13:00 EDT, [facility], 175, cm, 12/03/22 11:50:00 EDT, Height, [...] Gm, 12 Refills, Maintenance, 03/24/23 10:52:00 EDT, [facility], 28, APPLY TOPICALLY TO AFFECTED AREA(S) [...] 05/03/23 12:01:00 EST, 03/22/23 12:01:00 EDT, Tablet, [facility]/pharmacy #[id number], Partial fill [...] Gm, 11 Refills, Maintenance, 08/07/22 12:12:00 EST, [facility]/pharmacy #[id number], 30, USE 1 SPRAY(S) INTO EACH NOSTRIL TWICE A DAY, 176, cm,08/07/22 11:37:00 EST, Height, 79.8, kg, 07/31/22 2... Start Date: 08/07/22 Status: Ordered folic acid 1 mg oral tablet 1, tablet, By Mouth, Daily, ^1R1., # 30 tablet, Refills 5, Maintenance, 03/20/23 16:22:00 EDT, [facility], 175, cm, 03/20/23 15:31:00 EDT, Height, 77.5, kg, 03/20/23 11:30:00 EDT, Dry Weight Start Date: 03/20/23 Status: Ordered furosemide 20 mg oral tablet 20 mg, 1, tablet, By Mouth, Every other day, # 30 tablet, Refills 3, Tot. Refills 3, Maintenance, 01/28/23 12:31:00 EDT, Route to Pharmacy Electronically, [facility], Partial fill upon patient request if the prescription is for a schedule II o... Start Date: 01/28/23 Status: Ordered gabapentin 300 mg oral capsule 300 mg, 1, capsule, By Mouth, Daily at bedtime, note dose/frequency change, # 90 capsule, Refills 4, Tot. Refills 4, Maintenance, 11/05/22 11:05:00 EDT, [facility], 175, cm, 11/05/22 10:21:00 EDT, Height, 88.9... Start Date: 11/05/22 Stop Date: 01/29/24 Status: Ordered hydrOXYzine hydrochloride 10 mg oral tablet 2 tablet, By Mouth, 2 times a day, PRN NEEDED FOR ANXIETY (VIAL), # 30 tablet, 3 Refills, Maintenance, 04/16/23 16:41:00 EDT, [facility], 175, cm, 03/22/23 6:50:00 EDT, Height, 77.5, kg, 03/20/23 11:30:00 EDT, Dry Weight Start Date: 04/16/23 Status: Ordered lactulose 10 gm/15 ml oral syrup 15 mL, By Mouth, 2 times a day, # 120 mL, 6 Refills, Maintenance, 02/26/23 10:11:00 EDT, [facility], 4, TAKE 15ML BY MOUTH TWO TIMES A DAY, 175, cm, 12/03/22 11:50:00 EDT, Height, 84, kg, 02/12/23 11:30:00 EDT, Dry Weight Start Date: 02/26/23 Status: Ordered magnesium oxide 400 mg oral tablet See Instructions, TAKE 1 TABLET BY MOUTH TWICE A DAY^1R1,1R4, # 60 tablet, 11 Refills, Maintenance,01/28/23 12:31:00 EDT, [facility], 175, cm, 12/03/22 11:50:00 EDT, Height, 88.9, kg, 10/21/22 20:41:00 EDT, Dry Weight Start Date: 01/28/23 Status: Ordered Melatonin 3 mg oral tablet 1 tablet, By Mouth, Daily at bedtime, PRN NEEDED FOR INSOMNIA (PACKAGE IN TRAY)^1R4, # 60 tablet, 5 Refills, Maintenance, 04/16/23 16:41:00 EDT, [facility], 60, TAKE 1 TABLET BY MOUTH [...] 02/26/23 10:11:00 EDT, Route to Pharmacy Electronically, [facility], 175, cm, 12/03/22 11:50:00 EDT, Height, [...] 05/03/23 12:02:00 EST, 03/22/23 12:02:00 EDT, Capsule, [facility]/pharmacy #[id number], Partial fill upon patient request if the prescription is for a schedule II opioid drug., 175, c... Start Date: 03/22/23 Stop Date: 05/03/23 Status: Ordered spironolactone 25 mg oral tablet 1, tablet, By Mouth, Daily, ^1R2., # 30 tablet, Refills 5, Tot. Refills 5, Maintenance, 04/14/23 12:41:00 EDT, Route to Pharmacy Electronically, [facility], 175, cm, 03/22/23 6:50:00 EDT, Height, 77.5, kg, 03/20/23 11:30:00 EDT, Dry Weight Start Date: 04/14/23 Status: Ordered Tab-A-Jesse oral tablet 1 tablet, By Mouth, Daily, # 90 tablet, 1 Refills, 12/01/22 12:59:00 EDT, [facility], 28, 1tablet By Mouth Daily, 175, cm, 11/13/22 10:42:00 EDT, Height, 88.9, kg, 10/21/22 20:41:00 EDT, DryWeight Start Date: 12/01/22 Status: Ordered traZODone 50 mg oral tablet 2, tablet, By Mouth, Daily at bedtime, ^2R4., # 60 tablet, Refills 5, Maintenance, 02/26/23 10:11:00 EDT, Route to Pharmacy Electronically, [facility], 175, cm, 12/03/22 11:50:00 EDT, Height,84, [...] 02/09/23 23:18:00 EDT, Route to Pharmacy Electronically, [facility], 175, cm, 12/03/22 11:50:00 EDT, Height, 88.9, kg, 10/21/22 20:41:00 EDT, Dry Weight Start Date: 02/09/23 Status: Ordered Vitamin B6 50 mg oral tablet 1, tablet, By Mouth, Daily, R1., # 90 tablet, Refills 4, Maintenance, 11/16/22 13:39:00 EDT, Route to Pharmacy Electronically, [facility], 175, cm, 11/13/22 10:42:00 EDT, Height, [...] tablet, 3 Refills, Maintenance, 02/26/23 10:11:00 EDT, [facility], 175, cm, 12/03/22 11:50:00 EDT, Height, [...] Team Personnel Name: Alexandra Colmenares RN Position: [facility] ED RN W/OE and Tasks Member Role: Primary Care Nurse Name: Garima Manzano RN Position: [facility] RN Member Role: Primary Care Nurse Name: Malgorzata Marinelli RN Position: [facility] RN Member Role: Primary Care Nurse Name: Joyce Roach RN Position: [facility] ED RN W/OE and Tasks Member Role: Primary Care Nurse Name: Mary Suazo RN Position: [facility] RN Member Role: Primary Care Nurse Name: Andres Pressley RN Position: [facility] RN Member Role: Primary Care Nurse Name: Jany Baig DO Position: [facility] Physician - Primary Care Member Role: PCP Address: Address: [address] [place] [address] Adult & Pediatric Medicine [address] Name: Kaye Payne RN Position: [facility] RN Member Role: Primary Care Nurse Name: Garima Hutchinson Position: [facility] RN Member Role: Primary Care Nurse Name: Malgorzata Austin Position: [facility] RN Member Role: Primary Care Nurse Name: Ibeth Adams RN Position: [facility] RN Member Role: Primary Care Nurse Name: Torrie Hernandez RN Position: [facility] OB RN Member Role: Primary Care Nurse Name: Gretchen Knutson RN Position: [facility] SN RN Member Role: Primary Care Nurse Name: Aislinn Mckee RN Position: [facility] RN Member Role: Primary Care Nurse Name: Ashley Mcelroy Position: [facility] RN Member Role: Primary Care Nurse Name: Ashok Kevin RN Position: S RN Member Role: Primary Care Nurse Name: Cody Garcia Position: [facility] Associate Professional Member Role: Lifetime Consulting Provider Address: Address: [address] [place] [address]- Name: Paige Nascimento RN Position: [facility] RN Member Role: Primary Care Nurse Name: Ge Covarrubias RN Position: [facility] RN Member Role: Primary Care Nurse Name: Orin Elmore RN Position: [facility] ED RN W/OE and Tasks Member Role: Primary Care Nurse Name: Allegra Liu RN Position: [facility] SN RN Member Role: Primary Care Nurse Name: Shayan Pandya MD Position: [facility] Renal MD Member Role: Lifetime Consulting Physician Address: Address: [address] [place] [address] [address] [facility], [place] [address]- Name: Darlene Rodrigez RN Position: [facility] RN Member Role: Primary Care Nurse Name: Dolores Can RN Position: [facility] RN Member Role: Primary Care Nurse Name: Ingrid Verdugo RN Position: [facility] RN Member Role: Primary Care Nurse Name: Monica Rowell RN Position: [facility] RN Member Role: Primary Care Nurse Name: Jimi Fitzpatrick RN Position: [facility] RN Member Role: Primary Care Nurse Care Team Related Persons Name: MARLEN CABEZAS Address: home [address] [place] [address] Name: MARLEN CABEZAS Address: home [address] [place] [address] Name: NICK CABEZAS Name: CAWUGEMA Address: home [address] [place] [address]
--- OUTSIDE RECORDS SUMMARY | 2023-12-15 20:45 | XMS_ITS | Continuity of Care Document ---
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: [id number] 2Result Comment: [04/29/2017] [id number] 3Admin Note: FLUARIX 4Admin Note: 3 RDINJ 5Admin Note: #2 Medications acetaminophen 500 mg oral tablet 1 tablet, By Mouth, 4 times a day, PRN NEEDED FOR PAIN, MAX 4, PER DAY (VIAL., # 50 tablet, 11 Refills, Maintenance, 03/13/22 8:37:00 EDT, [facility], 175, cm, 01/06/22 10:34:00 EDT, Height, 78.3, kg, 12/26/21 19:05:00 EDT, Dry Weight Start Date: 03/13/22 Status: Ordered amLODIPine 5 mg oral tablet See Instructions, TAKE 1 TABLET BY MOUTH ONCE A DAY^1R1, # 30 tablet, 5 Refills, Maintenance, 05/13/22 16:24:00 EST, [facility], 175, cm, 04/09/22 15:34:00 EDT, Height, 78.3, kg, 12/26/21 19:05:00 EDT, Dry Weight Start Date: 05/13/22 Status: Ordered baclofen 10 mg oral tablet See Instructions, TAKE 1 TABLET BY MOUTH THREE TIMES DAILY, # 90 tablet, Refills 0, Maintenance, 08/07/22 12:26:00 EST, Instructions Replace Required Details, Route to Pharmacy Electronically, [facility], 176, cm, 08/07/22 11:37:00 EST, Height... Start Date: 08/07/22 Status: Ordered Co Q-10 100 mg oral capsule See Instructions, TAKE 1 CAPSULE BY MOUTH FOUR TIMES DAILY, # 120 capsule, 6 Refills, Maintenance, 08/07/22 12:13:00 EST, [facility], 176, cm, 08/07/22 11:37:00 EST, [...] day for dry skin dx: eczema L30.9, 08/07/22 12:26:00 EST, Compound, 176, cm, 08/07/2310:37:00 EST, Height, 79.8, kg, 07/31/22 22:40:00... Start Date: 08/07/22 Status: Ordered fluticasone 50 mcg/inh nasal spray See Instructions, USE 1 SPRAY(S) INTO EACH NOSTRIL TWICE A DAY, # 16 Gm, 11 Refills, Maintenance, 08/07/22 12:12:00 EST, [facility]/pharmacy #[id number], 30, USE 1 SPRAY(S) INTO EACH NOSTRIL TWICE A DAY, 176, cm,08/07/22 11:37:00 EST, Height, 79.8, kg, 07/31/22 2... Start Date: 08/07/22 Status: Ordered folic acid 1 mg oral tablet 1 mg, 1, tablet, By Mouth, Daily, # 90 tablet, Refills 4, Tot. Refills 4, Maintenance, 10/27/21 10:40:00 EDT, Route to Pharmacy Electronically, [facility], Partial fill upon patient request if the prescription is for a schedule II opioid drug.... Start Date: 10/27/21 Stop Date: 01/20/23 Status: Ordered furosemide 20 mg oral tablet See Instructions, TAKE 1 TABLET BY MOUTH ONCE A DAY^1R1, # 30 tablet, Refills 2, Maintenance, 08/07/22 12:27:00 EST, Instructions Replace Required Details, [facility], 176, cm, 08/07/22 11:37:00 EST, Height, 7... Start Date: 08/07/22 Status: Ordered furosemide 20 mg oral tablet 1, tablet, By Mouth, Daily, R1., # 30 tablet, Refills 5, Tot. Refills 5, Maintenance, 08/10/22 16:49:00 EST, Route to Pharmacy Electronically, [facility]/pharmacy #[id number], 176, cm, 08/07/22 11:37:00 EST, Height, 79.8, kg, 07/31/22 22:40:00 EST, Dry Weight Start Date: 08/10/22 Status: Ordered gabapentin 300 mg oral capsule 2, capsule, By Mouth, Daily at bedtime, # 180 capsule, Refills 4, Maintenance, 08/10/22 16:53:00 EST, Route to Pharmacy Electronically, [id number], 176, cm, 08/07/22 11:37:00 EST, Height, 79.8, kg, 07/31/22 22:40:00 EST, Dry Weight Start Date: 08/10/22 Stop Date: 11/08/22 Status: Ordered hydrOXYzine hydrochloride 25 mg oral tablet 1 TO 2 TABLETS, By Mouth, Daily at bedtime, PRN NEEDED FOR ANXIETY (VIAL), # 60 tablet, 11 Refills, Maintenance, 03/13/22 8:38:00 EDT, [facility], 175, cm, 01/06/22 10:34:00 EDT, Height, 78.3, kg, 12/26/21 19:05:00 EDT, Dry Weight Start Date: 03/13/22 Status: Ordered lactulose 10 gm/15 ml oral syrup See Instructions, TAKE 30ML BY MOUTH THREE TIMES DAILY NEEDED TO ACHEIVE 3-4 BOWL MOVEMENTS PER DAY, # 3,000 mL, 10 Refills, [facility], 30, TAKE 30ML BY MOUTH THREE TIMES DAILY NEEDED TO ACHEIVE 3-4 BOWL MOVEMENTS PER DAY, 174, cm, 02/12... Start Date: 07/02/21 Status: Ordered Lidoderm 5% film 1 patch, Topically, Daily, remove patches after 12 hours NSAIDS contraindicated High dose tylenol contraindicated remove patches after 12 hours Rib fracture, # 30 patch, 5 Refills, Maintenance, 08/07/22 12:09:00 EST, [id number] f... Start Date: 08/07/22 Status: Ordered magnesium oxide 400 mg oral tablet 1 tablet, By Mouth, 2 times a day, # 60 tablet, 11 Refills, Maintenance, 03/13/22 8:37:00 EDT, [facility], 175, cm, 01/06/22 10:34:00 EDT, Height, 78.3, kg, 12/26/21 19:05:00 EDT, Dry Weight Start Date: 03/13/22 Status: Ordered Melatonin 3 mg oral tablet 1 tablet, By Mouth, Daily at bedtime, PRN NEEDED FOR INSOMNIA (PACKAGE IN TRAY)^1R4, # 60 tablet, 5 Refills, Maintenance, 06/12/22 18:11:00 EST, [facility], 60, TAKE 1 TABLET BY [...] tablet, Refills 1, Tot. Refills 1, Maintenance, 08/07/22 12:14:00 EST, Route to Pharmacy Electronically, [facility]/pharmacy #[id number], Partial fill upon patient requestif the prescription is for a schedule II opioid remedios... Start Date: 08/07/22 Stop Date: 02/03/23 Status: Ordered Potassium Chloride (Eqv-K-Tab) 20 mEq oral tablet, extended release 2 tablet, By Mouth, Daily, # 180 tablet, 1 Refills, Maintenance, 05/13/22 9:48:00 EST, [facility], 175, cm, 04/09/22 15:34:00 EDT, Height, 78.3, kg, 12/26/21 19:05:00 EDT, Dry Weight Start Date: 05/13/22 Stop Date: 11/09/22 Status: Ordered pyridoxine 50 mg oral tablet 50 mg, 1, tablet, By Mouth, Daily, for 90 days, # 90 tablet, Refills 4, Tot. Refills 4, Acute 01/15/23 11:42:00 EDT, 10/22/21 11:42:00 EDT, Route to Pharmacy Electronically, [facility], Partial fill upon patient request if [...] 90 tablet, 9 Refills, 08/07/22 12:27:00 EST, [facility]/pharmacy #[id number], 28, 1tablet By Mouth Daily, 176, cm, 08/07/22 11:37:00 EST, Height, 79.8, kg, 07/31/22 22:40:00 EST, DryWeight Start Date: 08/07/22 Status: Ordered tranexamic acid 650 mg oral tablet 1 tablet = 650 mg, By Mouth, Daily, # 19 tablet, 0 Refills, Maintenance, 08/01/22 16:17:00 EST, Tablet, [facility]/pharmacy #[id number], Partial fill upon patient request if the prescription is for a schedule II opioid drug., 176, cm, 08/01/22 15:52:00 EST, Height... Start Date: 08/01/22 Stop Date: 08/20/22 Status: Ordered traZODone 50 mg oral tablet 2 TO 3 TABLETS, By Mouth, Daily at bedtime, #28 VIAL)^2R4., # 90 tablet, Refills 5, Maintenance, 06/12/22 18:11:00 EST, Route to Pharmacy Electronically, [facility], 179, cm, 06/08/22 7:37:00EST, Height, 84, kg, 06/01/22 12:27:00 EST, Dry Weight Start Date: 06/12/22 Status: Ordered Vitamin B1 100 mg oral tablet 1, tablet, By Mouth, Daily, # 90 tablet, Refills 3, Maintenance, 03/13/22 8:37:00 EDT, Route to Pharmacy Electronically, [facility], 175, cm, 01/06/22 10:34:00 EDT, Height, 78.3, kg, 12/26/2218:05:00 EDT, Dry Weight Start Date: 03/13/22 Status: Ordered Xifaxan 550 mg oral tablet 1 tablet, By Mouth, 2 times a day, ^1R1,1R4., # 60 tablet, 1 Refills, Maintenance, 06/12/22 18:10:00 EST, [facility], 179, cm, 06/08/22 7:37:00 EST, Height, [...] Team Personnel Name: Alexandra Colmenares RN Position: [facility] ED RN W/OE and Tasks Member Role: Primary Care Nurse Name: Garima Manzano RN Position: [facility] RN Member Role: Primary Care Nurse Name: Malgorzata Marinelli RN Position: [facility] RN Member Role: Primary Care Nurse Name: Joyce Roach RN Position: [facility] RN Member Role: Primary Care Nurse Name: Mary Suazo RN Position: [facility] RN Member Role: Primary Care Nurse Name: Danyel Davis RN Position: [facility] RN Member Role: Primary Care Nurse Name: Andres Pressley RN Position: [facility] RN Member Role: Primary Care Nurse Name: Jany Baig DO Position: [facility] Primary Care Physician Member Role: PCP Address: Address: [address] [place] [address] Adult & Pediatric Medicine [address] Name: Neida Ballard RN Position: [facility] RN Member Role: Primary Care Nurse Name: Kaye Payne RN Position: [facility] RN Member Role: Primary Care Nurse Name: Garima Hutchinson Position: [facility] RN Member Role: Primary Care Nurse Name: Malgorzata Austin Position: [facility] RN Member Role: Primary Care Nurse Name: Torrie Hernandez RN Position: [facility] OB RN Member Role: Primary Care Nurse Name: Gretchen Knutson RN Position: [facility] SN RN Member Role: Primary Care Nurse Name: Aislinn Mckee RN Position: [facility] RN Member Role: Primary Care Nurse Name: Ashley Mcelroy Position: [facility] RN Member Role: Primary Care Nurse Name: Cody Garcia Position: [facility] Associate Professional Member Role: Lifetime Consulting Provider Address: Address: [address] [place] [address]- Name: eG Covarrubias RN Position: [facility] RN Member Role: Primary Care Nurse Name: Orin Elmore RN Position: [facility] ED RN W/OE and Tasks Member Role: Primary Care Nurse Name: Allegra Liu RN Position: [facility] PCO RN Member Role: Primary Care Nurse Name: Shayan Pandya MD Position: [facility] Renal MD Member Role: Lifetime Consulting Physician Address: Address: [address] [place] [address] [address] [facility], [place] [address]- Name: Darlene Rodrigez RN Position: [facility] RN Member Role: Primary Care Nurse Name: Kwan Mills RN Position: [facility] RN Member Role: Primary Care Nurse Name: Dolores Can RN Position: S RN Member Role: Primary Care Nurse Name: Kim Rendon RN Position: [facility] RN Member Role: Primary Care Nurse Name: Monica Rowell RN Position: [facility] RN Member Role: Primary Care Nurse Care Team Related Persons Name: MARLEN CABEZAS Address: [address] [place] [address] Name: MARLEN CABEZAS Address: home [address] [place] [address] Name: NICK CABEZAS Name: GEMA CABEZAS Address: home [address] [place] [address]
--- OUTSIDE RECORDS SUMMARY | 2023-12-15 20:45 | XMS_ITS | Continuity of Care Document ---
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 Role Phone Jany Baig DO Primary Care Physician Encounter [facility] Date(s): 07/29/23 - 08/28/23 [facility] [address] [place], [place] [address] Allergies, Adverse [...] acel (oldterm) 08/02/12 Give n 1Result Comment: [facility]: 12459-429-27 2Result Comment: [04/29/2017] 62351-414-30 3Admin Note: FLUARIX 4Admin Note: 3 RDINJ 5Admin Note: #2 Medications acamprosate 333 mg oral delayed release tablet 2 tablet = 666 mg, By Mouth, 3 times a day, # 180 tablet, 1 Refills, Maintenance, 07/28/23 11:04:00EST, EC Tablet, [facility], Partial fill upon patient request if [...] tablet, 2 Refills, Maintenance, 07/28/23 11:06:00 EST, [facility], 175, cm, 07/28/23 9:11:00 EST, Height, 61.3, kg, 07/12/23 23:27:00 EST, Dry Weight Start Date: 07/28/23 Status: Ordered amLODIPine 5 mg oral tablet 1 tablet, By Mouth, Daily, ^1R1., # 30 tablet, 2 Refills, Maintenance, 06/02/23 8:00:00 EST, [facility], 175, cm, 03/22/23 6:50:00 EDT, [...] 07/28/23 11:10:00 EST, Route to Pharmacy Electronically, [facility], Partial fill upon patient request if [...] Gm, 12 Refills, Maintenance, 07/28/23 11:06:00 EST, [facility], 28, APPLY TOPICALLY TO AFFECTED AREA(S) [...] Gm, 1 Refills, Maintenance, 07/28/23 12:07:00 EST, [facility], 30, USE 1 SPRAY(S) INTO EACH [...] 07/28/23 12:08:00 EST, Route to Pharmacy Electronically, [facility], 175, cm, 07/28/23 9:11:00 EST, Height, 61.3, kg, 07/12/23 23:27:00 EST, Dry Weight Start Date: 07/28/23 Status: Ordered furosemide 20 mg oral tablet 20 mg, 1, tablet, By Mouth, Every other day, # 30 tablet, Refills 1, Tot. Refills 1, Maintenance, 07/28/23 12:08:00 EST, Route to Pharmacy Electronically, [facility], Partial fill upon patient request if the prescription is for a schedule II... Start Date: 07/28/23 Status: Ordered gabapentin 300 mg oral capsule 300 mg, 1, capsule, By Mouth, Daily at bedtime, note dose/frequency change, # 30 capsule, Refills 1, Tot. Refills 1, Maintenance, 07/28/23 12:09:00 EST, Route to Pharmacy Electronically, [facility], 175, cm, 07/28/23 9:11:00 EST, Height, [...] tablet, 3 Refills, Maintenance, 07/28/23 12:10:00 EST, [facility], 175, cm, 07/28/23 9:11:00 EST, Height, 61.3, kg,07/12/23 23:27:00 EST, Dry Weight Start Date: 07/28/23 Status: Ordered lactulose 10 gm/15 ml oral syrup 30 mL = 20 Gm, By Mouth, 3 times a day, for 30 days, # 2,700 mL, 2 Refills, Acute 10/26/23 12:13:00EDT, 07/28/23 12:13:00 EST, Syrup, [facility], Partial fill upon patient request if [...] 60 tablet, 11 Refills, Maintenance,07/28/23 12:09:00 EST, [facility], 175, cm, 07/28/23 9:11:00 EST, Height, [...] tablet, 5 Refills, Maintenance, 07/28/23 12:09:00 EST, [facility], 60, 1 tablet By Mouth Daily [...] 07/28/23 12:11:00 EST, Route to Pharmacy Electronically, [facility], 175, cm, 07/28/23 9:11:00EST, Height, 61.3, [...] 07/28/23 12:12:00 EST, Route to Pharmacy Electronically, [facility], 175, cm, 07/28/23 9:11:00 EST, Height, 61.3, kg, 07/12/23 23:27:00 EST, Dry Weight Start Date: 07/28/23 Status: Ordered spironolactone 25 mg oral tablet 1, tablet, By Mouth, Daily, ^1R2., # 30 tablet, Refills 5, Tot. Refills 5, Maintenance, 04/14/23 12:41:00 EDT, Route to Pharmacy Electronically, [facility], 175, cm, 03/22/23 6:50:00 EDT, Height, 77.5, kg, 03/20/23 11:30:00 EDT, Dry Weight Start Date: 04/14/23 Status: Ordered Tab-A-Jesse oral tablet 1 tablet, By Mouth, Daily, R1., # 30 tablet, 5 Refills, Maintenance, 05/06/23 19:16:00 EST, [facility], 30, TAKE 1 TABLET [...] 02/26/23 10:11:00 EDT, Route to Pharmacy Electronically, [facility], 175, cm, 12/03/22 11:50:00 EDT, Height,84, kg, 02/12/23 11:30:00 EDT, Dry Weight Start Date: 02/26/23 Status: Ordered traZODone 50 mg oral tablet 2, tablet, By Mouth, Daily at bedtime, ^2R4., # 60 tablet, Refills 5, Tot. Refills 5, Maintenance, 07/28/23 12:12:00 EST, Route to Pharmacy Electronically, [facility], 175, cm, 07/28/23 9:11:00 EST, Height, [...] 02/09/23 23:18:00 EDT, Route to Pharmacy Electronically, [facility], 175, cm, 12/03/22 11:50:00 EDT, Height, 88.9, kg, 10/21/22 20:41:00 EDT, Dry Weight Start Date: 02/09/23 Status: Ordered Vitamin B1 100 mg oral tablet 1, tablet, By Mouth, Daily, # 90 tablet, Refills 3, Tot. Refills 3, Maintenance, 07/28/23 12:12:00 EST, Route to Pharmacy Electronically, [facility], 175, cm, 07/28/23 9:11:00 EST, Height, 61.3, kg, 07/12/23 23:27:00 EST, Dry Weight Start Date: 07/28/23 Status: Ordered Vitamin B6 50 mg oral tablet 1, tablet, By Mouth, Daily, R1., # 90 tablet, Refills 4, Maintenance, 11/16/22 13:39:00 EDT, Route to Pharmacy Electronically, [facility], 175, cm, 11/13/22 10:42:00 EDT, Height, 88.9, kg, 10/21/22 20:41:00 EDT, Dry Weight Start Date: 11/16/22 Status: Ordered Vitamin B6 50 mg oral tablet 1, tablet, By Mouth, Daily, R1., # 90 tablet, Refills 4, Tot. Refills 4, Maintenance, 07/28/23 12:11:00 EST, Route to Pharmacy Electronically, [facility], 175, cm, 07/28/23 9:11:00 EST, Height, [...] each, 1 Refills, Maintenance, 07/28/23 14:33:00 EST, [facility], 175, cm, 07/28/23 9:11:00 EST, Height, [...] Care Nurse Name: Garima Manzano RN Position: [facility] RN Member Role: Primary Care Nurse Name: Malgorzata Marinelli RN Position: [facility] RN Member Role: Primary Care Nurse Name: Joyce Roach RN Position: [facility] ED RN W/OE and Tasks Member Role: Primary Care Nurse Name: Mary Suazo RN Position: [facility] RN Member Role: Primary Care Nurse Name: Lucina Peralta RN Position: [facility] RN Member Role: Primary Care Nurse Name: Maria Esther Craig LPN Position: [facility] RN Member Role: Primary Care Nurse Name: Andres Pressley RN Position: [facility] ED RN W/OE and Tasks Member Role: Primary Care Nurse Name: Jany Baig DO Position: [facility] Physician - Primary Care Member Role: PCP Address: Address: [address] [place] [address] Adult [place] [address]- Name: Kaye Payne RN Position: [facility] RN Member Role: Primary Care Nurse Name: Garima Curry RN Position: [facility] RN Member Role: Primary Care Nurse Name: Malgorzata Austin Position: [facility] RN Member Role: Primary Care Nurse Name: Ibeth Adams RN Position: [facility] RN Member Role: Primary Care Nurse Name: Torrie Hernandez RN Position: [facility] OB RN Member Role: Primary Care Nurse Name: Gretchen Knutson RN Position: [facility] SN RN Member Role: Primary Care Nurse Name: Aislinn Mckee RN Position: [facility] RN Member Role: Primary Care Nurse Name: Ashley Mcelroy Position: [facility] RN Member Role: Primary Care Nurse Name: Ashok Kevin RN Position: [facility] RN Member Role: Primary Care Nurse Name: Cody Garcia Position: [facility] Associate Professional Member Role: Lifetime Consulting Provider Address: Address: [address] [place] [address]- Name: Paige Nascimento RN Position: [facility] RN Member Role: Primary Care Nurse Name: Ge Covarrubias RN Position: [facility] RN Member Role: Primary Care Nurse Name: Orin Elmore RN Position: [facility] ED RN W/OE and Tasks Member Role: Primary Care Nurse Name: Allegra Liu RN Position: [facility] AMB Nurse Member Role: Primary Care Nurse Name: Shayan Pandya MD Position: [facility] Renal MD Member Role: Lifetime Consulting Physician Address: Address: [address] [facility] [address] [facility] [place] [address]- Name: Kimberley Pittman RN Position: [facility] RN Member Role: Primary Care Nurse Name: Darlene Rodrigez RN Position: [facility] RN Member Role: Primary Care Nurse Name: Dixie Duke RN Position: [facility] RN Member Role: Primary Care Nurse Name: Kwan Mills RN Position: [facility] ED RN W/OE and Tasks Member Role: Primary Care Nurse Name: Ingrid Verdugo RN Position: [facility] RN Member Role: Primary Care Nurse Name: Monica Rowell RN Position: [facility] RN Member Role: Primary Care Nurse Name: Jimi Fitzpatrick RN Position: [facility] RN Member Role: Primary Care Nurse Care Team Related Persons Name: RAULITO MARLEN Address: [address] [place] [address] Name: MARLEN CABEZAS Address: [address] [place] [address] Name: NICK CABEZAS Name: GEMA CABEZAS Address: [address] [place] [address] Name: ELTON CHENG Address: home [address] [place] [id number]
--- OUTSIDE RECORDS SUMMARY | 2023-12-15 20:45 | XMS_ITS | Continuity of Care Document ---
Author Organization [facility] Address [address] [place] [address]- Care Team Providers Care Study Lead Name Role Phone Jany Baig DO Primary Care Physician Encounter [facility] Date(s): 07/06/23 - 08/05/23 [facility] [address] [place], [place] [address] Allergies, Adverse Reactions, Alerts Substance Reaction Severity [...] n 1Result Comment: [facility]: [id number] 2Result Comment: [04/29/2017] 29264-810-06 3Admin Note: FLUARIX 4Admin Note: 3 RDINJ 5Admin Note: #2 Medications acamprosate 333 mg oral delayed release tablet 2 tablet = 666 mg, By Mouth, 3 times a day, # 180 tablet, 1 Refills, Maintenance, 07/28/23 11:04:00EST, EC Tablet, [facility], Partial fill upon patient request [...] tablet, 2 Refills, Maintenance, 07/28/23 11:06:00 EST, [facility], 175, cm, 07/28/23 9:11:00 EST, Height, 61.3, kg, 07/12/23 23:27:00 EST, Dry Weight Start Date: 07/28/23 Status: Ordered amLODIPine 5 mg oral tablet 1 tablet, By Mouth, Daily, ^1R1., # 30 tablet, 2 Refills, Maintenance, 06/02/23 8:00:00 EST, [facility], 175, cm, 03/22/23 6:50:00 EDT, [...] 07/28/23 11:10:00 EST, Route to Pharmacy Electronically, [facility], Partial fill upon patient request if [...] Gm, 12 Refills, Maintenance, 07/28/23 11:06:00 EST, [facility], 28, APPLY TOPICALLY TO AFFECTED AREA(S) [...] Gm, 1 Refills, Maintenance, 07/28/23 12:07:00 EST, [facility], 30, USE 1 SPRAY(S) INTO EACH [...] 07/28/23 12:08:00 EST, Route to Pharmacy Electronically, [facility], 175, cm, 07/28/23 9:11:00 EST, Height, 61.3, kg, 07/12/23 23:27:00 EST, Dry Weight Start Date: 07/28/23 Status: Ordered furosemide 20 mg oral tablet 20 mg, 1, tablet, By Mouth, Every other day, # 30 tablet, Refills 1, Tot. Refills 1, Maintenance, 07/28/23 12:08:00 EST, Route to Pharmacy Electronically, [facility], Partial fill upon patient request if the prescription is for a schedule II... Start Date: 07/28/23 Status: Ordered gabapentin 300 mg oral capsule 300 mg, 1, capsule, By Mouth, Daily at bedtime, note dose/frequency change, # 30 capsule, Refills 1, Tot. Refills 1, Maintenance, 07/28/23 12:09:00 EST, Route to Pharmacy Electronically, [facility], 175, cm, 07/28/23 9:11:00 EST, Height, [...] tablet, 3 Refills, Maintenance, 07/28/23 12:10:00 EST, [facility], 175, cm, 07/28/23 9:11:00 EST, Height, 61.3, kg,07/12/23 23:27:00 EST, Dry Weight Start Date: 07/28/23 Status: Ordered lactulose 10 gm/15 ml oral syrup 30 mL = 20 Gm, By Mouth, 3 times a day, for 30 days, # 2,700 mL, 2 Refills, Acute 10/26/23 12:13:00EDT, 07/28/23 12:13:00 EST, Syrup, [facility], Partial fill upon patient request if [...] 60 tablet, 11 Refills, Maintenance,07/28/23 12:09:00 EST, [facility], 175, cm, 07/28/23 9:11:00 EST, Height, [...] tablet, 5 Refills, Maintenance, 07/28/23 12:09:00 EST, [facility], 60, 1 tablet By Mouth Daily [...] 07/28/23 12:11:00 EST, Route to Pharmacy Electronically, [facility], 175, cm, 07/28/23 9:11:00EST, Height, 61.3, [...] 07/28/23 12:12:00 EST, Route to Pharmacy Electronically, [facility], 175, cm, 07/28/23 9:11:00 EST, Height, 61.3, kg, 07/12/23 23:27:00 EST, Dry Weight Start Date: 07/28/23 Status: Ordered spironolactone 25 mg oral tablet 1, tablet, By Mouth, Daily, ^1R2., # 30 tablet, Refills 5, Tot. Refills 5, Maintenance, 04/14/23 12:41:00 EDT, Route to Pharmacy Electronically, [facility], 175, cm, 03/22/23 6:50:00 EDT, Height, 77.5, kg, 03/20/23 11:30:00 EDT, Dry Weight Start Date: 04/14/23 Status: Ordered Tab-A-Jesse oral tablet 1 tablet, By Mouth, Daily, R1., # 30 tablet, 5 Refills, Maintenance, 05/06/23 19:16:00 EST, [facility], 30, TAKE 1 TABLET BY [...] 10:11:00 EDT, Route to Pharmacy Electronically, [facility], 175, cm, 12/03/22 11:50:00 EDT, Height,84, kg, 02/12/23 11:30:00 EDT, Dry Weight Start Date: 02/26/23 Status: Ordered traZODone 50 mg oral tablet 2, tablet, By Mouth, Daily at bedtime, ^2R4., # 60 tablet, Refills 5, Tot. Refills 5, Maintenance, 07/28/23 12:12:00 EST, Route to Pharmacy Electronically, [facility], 175, cm, 07/28/23 9:11:00 EST, Height, [...] 02/09/23 23:18:00 EDT, Route to Pharmacy Electronically, [facility], 175, cm, 12/03/22 11:50:00 EDT, Height, 88.9, kg, 10/21/22 20:41:00 EDT, Dry Weight Start Date: 02/09/23 Status: Ordered Vitamin B1 100 mg oral tablet 1, tablet, By Mouth, Daily, # 90 tablet, Refills 3, Tot. Refills 3, Maintenance, 07/28/23 12:12:00 EST, Route to Pharmacy Electronically, [facility], 175, cm, 07/28/23 9:11:00 EST, Height, 61.3, kg, 07/12/23 23:27:00 EST, Dry Weight Start Date: 07/28/23 Status: Ordered Vitamin B6 50 mg oral tablet 1, tablet, By Mouth, Daily, R1., # 90 tablet, Refills 4, Maintenance, 11/16/22 13:39:00 EDT, Route to Pharmacy Electronically, [facility], 175, cm, 11/13/22 10:42:00 EDT, Height, 88.9, kg, 10/21/22 20:41:00 EDT, Dry Weight Start Date: 11/16/22 Status: Ordered Vitamin B6 50 mg oral tablet 1, tablet, By Mouth, Daily, R1., # 90 tablet, Refills 4, Tot. Refills 4, Maintenance, 07/28/23 12:11:00 EST, Route to Pharmacy Electronically, [facility], 175, cm, 07/28/23 9:11:00 EST, Height, [...] each, 1 Refills, Maintenance, 07/28/23 14:33:00 EST, [facility], 175, cm, 07/28/23 9:11:00 EST, Height, [...] 5 Confirmed Active Hepatic encephalopathy Confirmed Active History of substance abuse Confirmed [...] Team Personnel Name: Shira Galindo RN Position: [facility] RN Member Role: Primary Care Nurse Name: Lisa Nunez RN Position: S RN Member Role: Primary Care Nurse Name: Alexandra Colmenares RN Position: [facility] ED RN W/OE and Tasks Member Role: Primary Care Nurse Name: Garima Manzano RN Position: [facility] RN Member Role: Primary Care Nurse Name: Malgorzata Marinelli RN Position: [facility] RN Member Role: Primary Care Nurse Name: Joyce Roach RN Position: [facility] ED RN W/OE and Tasks Member Role: Primary Care Nurse Name: Mary Suazo RN Position: [facility] RN Member Role: Primary Care Nurse Name: Lucina Peralta RN Position: [facility] RN Member Role: Primary Care Nurse Name: Maria Esther Craig LPN Position: [facility] RN Member Role: Primary Care Nurse Name: Andres Pressley RN Position: [facility] ED RN W/OE and Tasks Member Role: Primary Care Nurse Name: Jany Baig DO Position: [facility] Physician - Primary Care Member Role: PCP Address: Address: [address] [place] [address] Adult [place] [address]- Name: Kaye Payne RN Position: [facility] RN Member Role: Primary Care Nurse Name: Garima Curry RN Position: [facility] RN Member Role: Primary Care Nurse Name: Malgorzata Austin Position: [facility] RN Member Role: Primary Care Nurse Name: Ibeth Adams RN Position: [facility] RN Member Role: Primary Care Nurse Name: Torrie Hernandez RN Position: [facility] OB RN Member Role: Primary Care Nurse Name: Gretchen Knutson RN Position: [facility] SN RN Member Role: Primary Care Nurse Name: Aislinn Mckee RN Position: [facility] RN Member Role: Primary Care Nurse Name: Ashley Mcelroy Position: [facility] RN Member Role: Primary Care Nurse Name: Ashok Kevin RN Position: [facility] RN Member Role: Primary Care Nurse Name: Cody Garcia Position: [facility] Associate Professional Member Role: Lifetime Consulting Provider Address: Address: [address] [place] [address]- Name: Paige Nascimento RN Position: [facility] RN Member Role: Primary Care Nurse Name: Ge Covarrubias RN Position: [facility] RN Member Role: Primary Care Nurse Name: Orin Elmore RN Position: [facility] ED RN W/OE and Tasks Member Role: Primary Care Nurse Name: Noe LOUIE, Alelgra Elliott Position: [facility] AMB Nurse Member Role: Primary Care Nurse Name: Shayan Pandya MD Position: [facility] Renal MD Member Role: Lifetime Consulting Physician Address: Address: [address] [facility] [address] [facility], [place] [address]- Name: Kimberley Pittman RN Position: [facility] RN Member Role: Primary Care Nurse Name: Darlene Rodrigez RN Position: [facility] RN Member Role: Primary Care Nurse Name: Dixie Duke RN Position: [facility] RN Member Role: Primary Care Nurse Name: Kwan Mills RN Position: [facility] ED RN W/OE and Tasks Member Role: Primary Care Nurse Name: Ingrid Verdugo RN Position: [facility] RN Member Role: Primary Care Nurse Name: Monica Rowell RN Position: [facility] RN Member Role: Primary Care Nurse Name: Jimi Fitzpatrick RN Position: [facility] RN Member Role: Primary Care Nurse Care Team Related Persons Name: DUCBRIANWUMARLEN Address: [address] [place] [address] Name: MARLEN CABEZAS Address: [address] [place] [address] Name: NICK CABEZAS Name: GEMA CABEZAS Address: [address] [place] [address] Name: ELTON CHENG Address: home [address] [place] [id number]
--- OUTSIDE RECORDS SUMMARY | 2023-12-15 20:45 | XMS_ITS | Continuity of Care Document ---
Author Organization [facility] Address [address] [place] [address]- Care Team Providers Care Dairy Hand Name Role Phone Jany Baig DO Primary Care Physician [facility]): 09/18/22 - 10/18/22 [facility] [address] [place], [place] [address] Allergies, Adverse Reactions, Alerts Substance Reaction Severity [...] acel (oldterm) 08/02/12 Give n 1Result Comment: [facility]: 46643-432-39 2Result Comment: [04/29/2017] 57204-825-13 3Admin Note: FLUARIX 4Admin Note: 3 RDINJ 5Admin Note: #2 Medications acamprosate 333 mg oral delayed release tablet 1 tablet = 333 mg, By Mouth, 3 times a day, # 90 tablet, 4 Refills, Maintenance, 09/03/22 14:59:00 EDT, EC Tablet, [facility], Partial fill upon patient request if the prescription is for a schedule II opioid drug., 169, cm, 09/03/22 14:21:00... Start Date: 09/03/22 Status: Ordered amLODIPine 5 mg oral tablet 1 tablet, By Mouth, Daily, ^1R1., # 30 tablet, 2 Refills, Maintenance, 10/06/22 4:58:00 EDT, [facility], 176, cm, 09/07/22 8:56:00 EDT, Height, 82.1, kg, 09/07/22 8:59:00 EDT, Dry Weight Start Date: 10/06/22 Status: Ordered baclofen 10 mg oral tablet See Instructions, TAKE 1 TABLET BY MOUTH THREE TIMES DAILY, # 90 tablet, Refills 0, Maintenance, 08/07/22 12:26:00 EST, Instructions Replace Required Details, Route to Pharmacy Electronically, [facility], 176, cm, 08/07/22 11:37:00 EST, Height... Start Date: 08/07/22 Status: Ordered calcium (as carbonate)-vitamin D 500 mg-400 intl units oral tablet 1 tablet, By Mouth, Daily, ^1R1., # 28 tablet, 0 Refills, Maintenance, 10/08/22 16:58:00 EDT, [facility], 28, TAKE ONE TABLET BY MOUTH EVERY DAY ^1R1, 176, cm, 09/07/22 8:56:00 EDT, Height, 82.1, kg, 09/07/22 8:59:00 EDT, Dry Weight Start Date: 10/08/22 Status: Ordered Co Q-10 100 mg oral capsule See Instructions, TAKE 1 CAPSULE BY MOUTH FOUR TIMES DAILY, # 120 capsule, 6 Refills, Maintenance, 08/07/22 12:13:00 EST, [facility], 176, cm, 08/07/22 11:37:00 EST, Height, [...] Gm, 11 Refills, Maintenance, 08/07/22 12:12:00 EST, [facility]/pharmacy #[id number], 30, USE 1 SPRAY(S) INTO EACH NOSTRIL TWICE A DAY, 176, cm,08/07/22 11:37:00 EST, Height, 79.8, kg, 07/31/22 2... Start Date: 08/07/22 Status: Ordered folic acid 1 mg oral tablet 1, tablet, By Mouth, Daily, R1., # 30 tablet, Refills 5, Tot. Refills 5, Maintenance, 10/06/22 4:59:00 EDT, Route to Pharmacy Electronically, [facility], 176, cm, 09/07/22 8:56:00 EDT, Height, 82.1, kg, 09/07/22 8:59:00 EDT, Dry Weight Start Date: 10/06/22 Status: Ordered furosemide 20 mg oral tablet 1, tablet, By Mouth, Daily, R1., # 30 tablet, Refills 5, Tot. Refills 5, Maintenance, 09/03/22 14:50:00 EDT, Route to Pharmacy Electronically, [facility], 169, cm, 09/03/22 14:21:00 EDT, Height, 69, kg, 08/16/22 1:04:00 EST, Dry Weight Start Date: 09/03/22 Status: Ordered gabapentin 300 mg oral capsule 300 mg, 1, capsule, By Mouth, 2 times a day, note dose/frequency change, # 180 capsule, Refills 4, Tot. Refills 4, Maintenance, 09/03/22 14:55:00 EDT, Route to Pharmacy Electronically, [facility], 169, cm, 09/03/22 14:21:00 EDT, Height, 69, kg... Start Date: 09/03/22 Stop Date: 11/27/23 Status: Ordered hydrOXYzine hydrochloride 10 mg oral tablet 2 tablet, By Mouth, 2 times a day, PRN NEEDED FOR ANXIETY (VIAL), # 30 tablet, 3 Refills, Maintenance, 09/24/22 17:01:00 EDT, [facility], 176, cm, 09/07/22 8:56:00 EDT, Height, 82.1, kg, 09/07/22 8:59:00 EDT, Dry Weight Start Date: 09/24/22 Status: Ordered lactulose 10 gm/15 ml oral syrup 15 mL, By Mouth, 2 times a day, # 120 mL, 6 Refills, Maintenance, 09/22/22 12:15:00 EDT, [facility], 4, TAKE 15ML BY MOUTH TWO TIMES A DAY, 176, cm, 09/07/22 8:56:00 EDT, Height, 82.1, kg, 09/07/22 8:59:00 EDT, Dry Weight Start Date: 09/22/22 Status: Ordered Lidoderm 5% film 1 patch, Topically, Daily, remove patches after 12 hours NSAIDS contraindicated High dose tylenol contraindicated remove patches after 12 hours Nueropathy, # 30 patch, 5 Refills, Maintenance, 09/03/22 16:34:00 EDT, [facility], Partial klaudia... Start Date: 09/03/22 Status: Ordered magnesium oxide 400 mg oral tablet 1 tablet, By Mouth, 2 times a day, # 60 tablet, 11 Refills, Maintenance, 03/13/22 8:37:00 EDT, [facility], 175, cm, 01/06/22 10:34:00 EDT, Height, 78.3, kg, 12/26/21 19:05:00 EDT, Dry Weight Start Date: 03/13/22 Status: Ordered Melatonin 3 mg oral tablet 1 tablet, By Mouth, Daily at bedtime, PRN NEEDED FOR INSOMNIA (PACKAGE IN TRAY)^1R4, # 60 tablet, 5 Refills, Maintenance, 06/12/22 18:11:00 EST, [facility], 60, TAKE 1 TABLET BY MOUTH [...] 09/03/22 14:53:00 EDT, [facility], Partial fill upon patient request if the prescription is for a schedule II opioid drug... Start Date: 09/03/22 Stop Date: 03/02/23 Status: Ordered PHENobarbital 30 mg oral tablet See Instructions, Taper 09/08-Day 1 -90mg Daily Day 2-3-60mg BID Day 4-5 30mg BID, # 15 tablet, 0 Refills, Maintenance, 09/08/22 15:05:00 EDT, [facility], Partial fill upon patient request if the prescription is for a schedule II op... Start Date: 09/08/22 Status: Ordered pyridoxine 50 mg oral tablet 50 mg, 1, tablet, By Mouth, Daily, for 90 days, # 90 tablet, Refills 4, Tot. Refills 4, Acute 01/15/23 11:42:00 EDT, 10/22/21 11:42:00 EDT, Route to Pharmacy Electronically, [facility], Partial fill upon patient request if [...] 90 tablet, 9 Refills, 08/07/22 12:27:00 EST, [facility]/pharmacy #[id number], 28, 1tablet By Mouth Daily, 176, cm, 08/07/22 11:37:00 EST, Height, 79.8, kg, 07/31/22 22:40:00 EST, DryWeight Start Date: 08/07/22 Status: Ordered traZODone 50 mg oral tablet 2 tablets, By Mouth, Daily at bedtime, # 60 each, Refills 5, Tot. Refills 5, Maintenance, 09/03/22 17:13:00 EDT, Route to Pharmacy Electronically, [facility], 169, cm, 09/03/22 14:21:00 EDT, Height, 69, kg, 08/16/22 1:04:00 EST, Dry Weight Start Date: 09/03/22 Status: Ordered Vitamin B1 100 mg oral tablet 1, tablet, By Mouth, Daily, # 90 tablet, Refills 3, Maintenance, 03/13/22 8:37:00 EDT, Route to Pharmacy Electronically, [facility], 175, cm, 01/06/22 10:34:00 EDT, Height, 78.3, kg, 12/26/2218:05:00 EDT, Dry Weight Start Date: 03/13/22 Status: Ordered Xifaxan 550 mg oral tablet 1 tablet, By Mouth, 2 times a day, ^1R1,1R4., # 60 tablet, 3 Refills, Maintenance, 10/01/22 15:19:00 EDT, [facility], 176, cm, 09/07/22 8:56:00 EDT, Height, 82.1, kg, 09/07/22 8:59:00 EDT, Dry Weight Start Date: 10/01/22 Status: Ordered Problem List Condition Confirmation Course [...] Name: Alexandra Colmenares RN Position: [facility] ED RN W/OE and Tasks Member Role: Primary Care Nurse Name: Garima Manzano RN Position: [facility] RN Member Role: Primary Care Nurse Name: Malgorzata Marinelli RN Position: [facility] RN Member Role: Primary Care Nurse Name: Joyce Roach RN Position: [facility] RN Member Role: Primary Care Nurse Name: Mary Suazo RN Position: [facility] RN Member Role: Primary Care Nurse Name: Andres Pressley RN Position: [facility] RN Member Role: Primary Care Nurse Name: Jany Baig DO Position: [facility] Primary Care Physician Member Role: PCP Address: Address: [address] [place] [address] [facility] [place] [address]- Name: Neida Ballard RN Position: [facility] RN Member Role: Primary Care Nurse Name: Kaye Payne RN Position: [facility] RN Member Role: Primary Care Nurse Name: Garima Hutchinson Position: [facility] RN Member Role: Primary Care Nurse Name: Malgorzata Austin Position: [facility] RN Member Role: Primary Care Nurse Name: Torrie Hernandez RN Position: [facility] OB RN Member Role: Primary Care Nurse Name: Gretchen Knutson RN Position: [facility] SN RN Member Role: Primary Care Nurse Name: Aislinn Mckee RN Position: [facility] RN Member Role: Primary Care Nurse Name: Ashley Mcelroy Position: [facility] RN Member Role: Primary Care Nurse Name: Cody Garcia Position: [facility] Associate Professional Member Role: Lifetime Consulting Provider Address: Address: [address] [place] [address]- Name: Ge Covarrubias RN Position: [facility] RN Member Role: Primary Care Nurse Name: Orin Elmore RN Position: [facility] ED RN W/OE and Tasks Member Role: Primary Care Nurse Name: Allegra Liu RN Position: [facility] PCO RN Member Role: Primary Care Nurse Name: Shayan Pandya MD Position: [facility] Renal MD Member Role: Lifetime Consulting Physician Address: Address: [address] [facility] [address] [facility] [place] [address]- Name: Darlene Rodrigez RN Position: S RN Member Role: Primary Care Nurse Name: Kwan Mills RN Position: [facility] RN Member Role: Primary Care Nurse Name: Dolores Can RN Position: S RN Member Role: Primary Care Nurse Name: Kim Rendon RN Position: [facility] RN Member Role: Primary Care Nurse Name: Monica Rowell RN Position: [facility] RN Member Role: Primary Care Nurse Care Team Related Persons Name: MARLEN CABEZAS Address: home [address] [place] [id number] Name: MARLEN CABEZAS Address: home [address] [place] [address] Name: NICK CABEZAS Name: GEMA CABEZAS Address: home [address] [place] [address]
--- OUTSIDE RECORDS SUMMARY | 2023-12-15 20:45 | XMS_ITS | Continuity of Care Document ---
Author Organization [facility] Address [address] [place] [address]- Care Team Providers Care In Flight Refueling Manager Name Role Phone Jany Baig DO Primary Care Physician ( [phone] [facility]counter [facility]): 07/08/23 - 08/07/23 [facility] [address] [place], [place] [address] Allergies, Adverse Reactions, Alerts Substance Reaction [...] acel (oldterm) 08/02/12 Give n 1Result Comment: [facility]: [id number] 2Result Comment: [04/29/2017] [id number] 3Admin Note: FLUARIX 4Admin Note: 3 RDINJ 5Admin Note: #2 Medications acamprosate 333 mg oral delayed release tablet 2 tablet = 666 mg, By Mouth, 3 times a day, # 180 tablet, 1 Refills, Maintenance, 07/28/23 11:04:00EST, EC Tablet, [facility], Partial fill upon patient request [...] tablet, 2 Refills, Maintenance, 07/28/23 11:06:00 EST, [facility], 175, cm, 07/28/23 9:11:00 EST, Height, 61.3, kg, 07/12/23 23:27:00 EST, Dry Weight Start Date: 07/28/23 Status: Ordered amLODIPine 5 mg oral tablet 1 tablet, By Mouth, Daily, ^1R1., # 30 tablet, 2 Refills, Maintenance, 06/02/23 8:00:00 EST, [facility], 175, cm, 03/22/23 6:50:00 [...] 07/28/23 11:10:00 EST, Route to Pharmacy Electronically, [facility], Partial fill upon patient request if [...] Gm, 12 Refills, Maintenance, 07/28/23 11:06:00 EST, [facility], 28, APPLY TOPICALLY TO AFFECTED AREA(S) [...] Gm, 1 Refills, Maintenance, 07/28/23 12:07:00 EST, [facility], 30, USE 1 SPRAY(S) INTO EACH [...] 07/28/23 12:08:00 EST, Route to Pharmacy Electronically, [facility], 175, cm, 07/28/23 9:11:00 EST, Height, 61.3, kg, 07/12/23 23:27:00 EST, Dry Weight Start Date: 07/28/23 Status: Ordered furosemide 20 mg oral tablet 20 mg, 1, tablet, By Mouth, Every other day, # 30 tablet, Refills 1, Tot. Refills 1, Maintenance, 07/28/23 12:08:00 EST, Route to Pharmacy Electronically, [facility], Partial fill upon patient request if the prescription is for a schedule II... Start Date: 07/28/23 Status: Ordered gabapentin 300 mg oral capsule 300 mg, 1, capsule, By Mouth, Daily at bedtime, note dose/frequency change, # 30 capsule, Refills 1, Tot. Refills 1, Maintenance, 07/28/23 12:09:00 EST, Route to Pharmacy Electronically, [facility], 175, cm, 07/28/23 9:11:00 EST, Height, [...] tablet, 3 Refills, Maintenance, 07/28/23 12:10:00 EST, [facility], 175, cm, 07/28/23 9:11:00 EST, Height, 61.3, kg,07/12/23 23:27:00 EST, Dry Weight Start Date: 07/28/23 Status: Ordered lactulose 10 gm/15 ml oral syrup 30 mL = 20 Gm, By Mouth, 3 times a day, for 30 days, # 2,700 mL, 2 Refills, Acute 10/26/23 12:13:00EDT, 07/28/23 12:13:00 EST, Syrup, [facility], Partial fill upon patient request if [...] 60 tablet, 11 Refills, Maintenance,07/28/23 12:09:00 EST, [facility], 175, cm, 07/28/23 9:11:00 EST, Height, [...] tablet, 5 Refills, Maintenance, 07/28/23 12:09:00 EST, [facility], 60, 1 tablet By Mouth Daily [...] 07/28/23 12:11:00 EST, Route to Pharmacy Electronically, [facility], 175, cm, 07/28/23 9:11:00EST, Height, 61.3, [...] 07/28/23 12:12:00 EST, Route to Pharmacy Electronically, [facility], 175, cm, 07/28/23 9:11:00 EST, Height, 61.3, kg, 07/12/23 23:27:00 EST, Dry Weight Start Date: 07/28/23 Status: Ordered spironolactone 25 mg oral tablet 1, tablet, By Mouth, Daily, ^1R2., # 30 tablet, Refills 5, Tot. Refills 5, Maintenance, 04/14/23 12:41:00 EDT, Route to Pharmacy Electronically, [facility], 175, cm, 03/22/23 6:50:00 EDT, Height, 77.5, kg, 03/20/23 11:30:00 EDT, Dry Weight Start Date: 04/14/23 Status: Ordered Tab-A-Jesse oral tablet 1 tablet, By Mouth, Daily, R1., # 30 tablet, 5 Refills, Maintenance, 05/06/23 19:16:00 EST, [facility], 30, TAKE 1 TABLET [...] 02/26/23 10:11:00 EDT, Route to Pharmacy Electronically, [facility], 175, cm, 12/03/22 11:50:00 EDT, Height,84, kg, 02/12/23 11:30:00 EDT, Dry Weight Start Date: 02/26/23 Status: Ordered traZODone 50 mg oral tablet 2, tablet, By Mouth, Daily at bedtime, ^2R4., # 60 tablet, Refills 5, Tot. Refills 5, Maintenance, 07/28/23 12:12:00 EST, Route to Pharmacy Electronically, [facility], 175, cm, 07/28/23 9:11:00 EST, Height, [...] 02/09/23 23:18:00 EDT, Route to Pharmacy Electronically, [facility], 175, cm, 12/03/22 11:50:00 EDT, Height, 88.9, kg, 10/21/22 20:41:00 EDT, Dry Weight Start Date: 02/09/23 Status: Ordered Vitamin B1 100 mg oral tablet 1, tablet, By Mouth, Daily, # 90 tablet, Refills 3, Tot. Refills 3, Maintenance, 07/28/23 12:12:00 EST, Route to Pharmacy Electronically, [facility], 175, cm, 07/28/23 9:11:00 EST, Height, 61.3, kg, 07/12/23 23:27:00 EST, Dry Weight Start Date: 07/28/23 Status: Ordered Vitamin B6 50 mg oral tablet 1, tablet, By Mouth, Daily, R1., # 90 tablet, Refills 4, Maintenance, 11/16/22 13:39:00 EDT, Route to Pharmacy Electronically, [facility], 175, cm, 11/13/22 10:42:00 EDT, Height, 88.9, kg, 10/21/22 20:41:00 EDT, Dry Weight Start Date: 11/16/22 Status: Ordered Vitamin B6 50 mg oral tablet 1, tablet, By Mouth, Daily, R1., # 90 tablet, Refills 4, Tot. Refills 4, Maintenance, 07/28/23 12:11:00 EST, Route to Pharmacy Electronically, [facility], 175, cm, 07/28/23 9:11:00 EST, Height, [...] each, 1 Refills, Maintenance, 07/28/23 14:33:00 EST, [facility], 175, cm, 07/28/23 9:11:00 EST, Height, [...] Care Nurse Name: Alexandra Colmenares RN Position: [facility] ED RN W/OE and Tasks Member Role: Primary Care Nurse Name: Garima Manzano RN Position: [facility] RN Member Role: Primary Care Nurse Name: Malgorzata Marinelli RN Position: [facility] RN Member Role: Primary Care Nurse Name: Joyce Roach RN Position: [facility] ED RN W/OE and Tasks Member Role: Primary Care Nurse Name: Mary Suazo RN Position: [facility] RN Member Role: Primary Care Nurse Name: Lucina Peralta RN Position: [facility] RN Member Role: Primary Care Nurse Name: Maria Esther Craig LPN Position: [facility] RN Member Role: Primary Care Nurse Name: Andres Pressley RN Position: [facility] ED RN W/OE and Tasks Member Role: Primary Care Nurse Name: Jany Baig DO Position: [facility] Physician - Primary Care Member Role: PCP Address: Address: [address] [place] [address] [place] [address]- Name: Kaye Payne RN Position: [facility] RN Member Role: Primary Care Nurse Name: Garima Curry RN Position: [facility] RN Member Role: Primary Care Nurse Name: Malgorzata Austin Position: [facility] RN Member Role: Primary Care Nurse Name: Ibeth Adams RN Position: [facility] RN Member Role: Primary Care Nurse Name: Torrie Hernandez RN Position: [facility] OB RN Member Role: Primary Care Nurse Name: Gretchen Knutson RN Position: [facility] SN RN Member Role: Primary Care Nurse Name: Aislinn Mckee RN Position: [facility] RN Member Role: Primary Care Nurse Name: Ashley Mcelroy Position: [facility] RN Member Role: Primary Care Nurse Name: Ashok Kevin RN Position: [facility] RN Member Role: Primary Care Nurse Name: Cody Garcia Position: [facility] Associate Professional Member Role: Lifetime Consulting Provider Address: Address: [address] [place] [address]- Name: Paige Nascimento RN Position: [facility] RN Member Role: Primary Care Nurse Name: Ge Covarrubias RN Position: [facility] RN Member Role: Primary Care Nurse Name: Orin Elmore RN Position: [facility] ED RN W/OE and Tasks Member Role: Primary Care Nurse Name: Noe LOUIE, Allegra Elliott Position: [facility] AMB Nurse Member Role: Primary Care Nurse Name: Shayan Pandya MD Position: [facility] Renal MD Member Role: Lifetime Consulting Physician Address: Address: [address] [facility] [address] [facility] [place] [address]- Name: Kimberley Pittman RN Position: [facility] RN Member Role: Primary Care Nurse Name: Darlene Rodrigez RN Position: [facility] RN Member Role: Primary Care Nurse Name: Dixie Duke RN Position: [facility] RN Member Role: Primary Care Nurse Name: Kwan Mills RN Position: [facility] ED RN W/OE and Tasks Member Role: Primary Care Nurse Name: Ingrid Verdugo RN Position: [facility] RN Member Role: Primary Care Nurse Name: Monica Rowell RN Position: [facility] RN Member Role: Primary Care Nurse Name: Jimi Fitzpatrick RN Position: [facility] RN Member Role: Primary Care Nurse Care Team Related Persons Name: DUCBRIANWUMARLEN Address: [address] [place] [address] Name: MARLEN CABEZAS Address: [address] [place] [address] Name: NICK CABEZAS Name: GEMA CABEZAS Address: [address] [place] [address] Name: ELTON CHENG Address: home [address] [place] [id number]
--- OUTSIDE RECORDS SUMMARY | 2023-12-15 20:45 | XMS_ITS | Continuity of Care Document ---
Author Organization [facility] Address [address] [place] [address]- Care Team Providers Care Clinical Practice Consultant Name Role Phone Jany Baig DO Primary Care Physician ( [phone] [facility]counter [facility] Date(s): 08/28/22 - 09/27/22 [facility] [address] [place] [address]- Allergies, Adverse Reactions, Alerts Substance Reaction Severity [...] 04/08/21 R ecorded SARS-CoV-2 (COVID-19) mRNA-1273 vaccine 9/27/21 R ecorded hepatitis B adult vaccine 03/01/20 [...] (oldterm) 08/02/12 Give n 1Result Comment: [facility]: 47922-539-14 2Result Comment: [04/29/2017] 26514-422-61 3Admin Note: FLUARIX 4Admin Note: 3 RDINJ 5Admin Note: #2 Medications acamprosate 333 mg oral delayed release tablet 1 tablet = 333 mg, By Mouth, 3 times a day, # 90 tablet, 4 Refills, Maintenance, 09/03/22 14:59:00 EDT, EC Tablet, [facility], Partial fill upon patient request if the prescription is for a schedule II opioid drug., 169, cm, 09/03/22 14:21:00... Start Date: 09/03/22 Status: Ordered amLODIPine 5 mg oral tablet See Instructions, TAKE 1 TABLET BY MOUTH ONCE A DAY^1R1, # 30 tablet, 5 Refills, Maintenance, 05/13/22 16:24:00 EST, [facility], 175, cm, 04/09/22 15:34:00 EDT, Height, 78.3, kg, 12/26/21 19:05:00 EDT, Dry Weight Start Date: 05/13/22 Status: Ordered baclofen 10 mg oral tablet See Instructions, TAKE 1 TABLET BY MOUTH THREE TIMES DAILY, # 90 tablet, Refills 0, Maintenance, 08/07/22 12:26:00 EST, Instructions Replace Required Details, Route to Pharmacy Electronically, [facility], 176, cm, 08/07/22 11:37:00 EST, Height... Start Date: 08/07/22 Status: Ordered calcium (as carbonate)-vitamin D 500 mg-400 intl units oral tablet 1 tablet, By Mouth, Daily, ^1R1., # 30 tablet, 0 Refills, Maintenance, 09/22/22 12:15:00 EDT, [facility], 30, TAKE ONE TABLET BY MOUTH EVERY DAY ^1R1, 176, cm, 09/07/22 8:56:00 EDT, Height, 82.1, kg, 09/07/22 8:59:00 EDT, Dry Weight Start Date: 09/22/22 Status: Ordered Co Q-10 100 mg oral capsule See Instructions, TAKE 1 CAPSULE BY MOUTH FOUR TIMES DAILY, # 120 capsule, 6 Refills, Maintenance, 08/07/22 12:13:00 EST, [facility], 176, cm, 08/07/22 11:37:00 EST, Height, [...] Gm, 11 Refills, Maintenance, 08/07/22 12:12:00 EST, [facility]/pharmacy #[id number], 30, USE 1 SPRAY(S) INTO EACH NOSTRIL TWICE A DAY, 176, cm,08/07/22 11:37:00 EST, Height, 79.8, kg, 07/31/22 2... Start Date: 08/07/22 Status: Ordered folic acid 1 mg oral tablet 1 mg, 1, tablet, By Mouth, Daily, # 90 tablet, Refills 4, Tot. Refills 4, Maintenance, 10/27/21 10:40:00 EDT, Route to Pharmacy Electronically, [facility], Partial fill upon patient request if the prescription is for a schedule II opioid drug.... Start Date: 10/27/21 Stop Date: 01/20/23 Status: Ordered furosemide 20 mg oral tablet 1, tablet, By Mouth, Daily, R1., # 30 tablet, Refills 5, Tot. Refills 5, Maintenance, 09/03/22 14:50:00 EDT, Route to Pharmacy Electronically, [facility], 169, cm, 09/03/22 14:21:00 EDT, Height, 69, kg, 08/16/22 1:04:00 EST, Dry Weight Start Date: 09/03/22 Status: Ordered gabapentin 300 mg oral capsule 300 mg, 1, capsule, By Mouth, 2 times a day, note dose/frequency change, # 180 capsule, Refills 4, Tot. Refills 4, Maintenance, 09/03/22 14:55:00 EDT, [facility], [facility], 169, cm, 09/03/22 14:21:00 EDT, Height, 69, kg... Start Date: 09/03/22 Stop Date: 11/27/23 Status: Ordered hydrOXYzine hydrochloride 10 mg oral tablet 2 tablet, By Mouth, 2 times a day, PRN NEEDED FOR ANXIETY (VIAL), # 30 tablet, 3 Refills, Maintenance, 09/24/22 17:01:00 EDT, [facility], 176, cm, 09/07/22 8:56:00 EDT, Height, 82.1, kg, 09/07/22 8:59:00 EDT, Dry Weight Start Date: 09/24/22 Status: Ordered lactulose 10 gm/15 ml oral syrup 15 mL, By Mouth, 2 times a day, # 120 mL, 6 Refills, Maintenance, 09/22/22 12:15:00 EDT, [facility], 4, TAKE 15ML BY MOUTH TWO TIMES A DAY, 176, cm, 09/07/22 8:56:00 EDT, Height, 82.1, kg, 09/07/22 8:59:00 EDT, Dry Weight Start Date: 09/22/22 Status: Ordered Lidoderm 5% film 1 patch, Topically, Daily, remove patches after 12 hours NSAIDS contraindicated High dose tylenol contraindicated remove patches after 12 hours Nueropathy, # 30 patch, 5 Refills, Maintenance, 09/03/22 16:34:00 EDT, [facility], Partial klaudia... Start Date: 09/03/22 Status: Ordered magnesium oxide 400 mg oral tablet 1 tablet, By Mouth, 2 times a day, # 60 tablet, 11 Refills, Maintenance, 03/13/22 8:37:00 EDT, [facility], 175, cm, 01/06/22 10:34:00 EDT, Height, 78.3, kg, 12/26/21 19:05:00 EDT, Dry Weight Start Date: 03/13/22 Status: Ordered Melatonin 3 mg oral tablet 1 tablet, By Mouth, Daily at bedtime, PRN NEEDED FOR INSOMNIA (PACKAGE IN TRAY)^1R4, # 60 tablet, 5 Refills, Maintenance, 06/12/22 18:11:00 EST, [facility], 60, TAKE 1 TABLET BY [...] 09/03/22 14:53:00 EDT, [facility], [facility], Partial fill upon patient request if the prescription is for a schedule II opioid drug... Start Date: 09/03/22 Stop Date: 03/02/23 Status: Ordered PHENobarbital 30 mg oral tablet See Instructions, Taper 09/08-Day 1 -90mg Daily Day 2-3-60mg BID Day 4-5 30mg BID, # 15 tablet, 0 Refills, Maintenance, 09/08/22 15:05:00 EDT, [facility], Partial fill upon patient request if the prescription is for a schedule II op... Start Date: 09/08/22 Status: Ordered pyridoxine 50 mg oral tablet 50 mg, 1, tablet, By Mouth, Daily, for 90 days, # 90 tablet, Refills 4, Tot. Refills 4, Acute 01/15/23 11:42:00 EDT, 10/22/21 11:42:00 EDT, Route to Pharmacy Electronically, [facility], Partial fill upon patient request if [...] 90 tablet, 9 Refills, 08/07/22 12:27:00 EST, [facility]/pharmacy #[id number], 28, 1tablet By Mouth Daily, 176, cm, 08/07/22 11:37:00 EST, Height, 79.8, kg, 07/31/22 22:40:00 EST, DryWeight Start Date: 08/07/22 Status: Ordered traZODone 50 mg oral tablet 2 tablets, By Mouth, Daily at bedtime, # 60 each, Refills 5, Tot. Refills 5, Maintenance, 09/03/22 17:13:00 EDT, Route to Pharmacy Electronically, [facility], 169, cm, 09/03/22 14:21:00 EDT, Height, 69, kg, 08/16/22 1:04:00 EST, Dry Weight Start Date: 09/03/22 Status: Ordered Vitamin B1 100 mg oral tablet 1, tablet, By Mouth, Daily, # 90 tablet, Refills 3, Maintenance, 03/13/22 8:37:00 EDT, Route to Pharmacy Electronically, [facility], 175, cm, 01/06/22 10:34:00 EDT, Height, 78.3, kg, 12/26/2218:05:00 EDT, Dry Weight Start Date: 03/13/22 Status: Ordered Xifaxan 550 mg oral tablet 1 tablet, By Mouth, 2 times a day, ^1R1,1R4., # 60 tablet, 0 Refills, Maintenance, 09/22/22 12:15:00 EDT, [facility], 176, cm, 09/07/22 8:56:00 EDT, Height, 82.1, kg, 09/07/22 8:59:00 EDT, Dry Weight Start Date: 09/22/22 Status: Ordered Problem List Condition Confirmation Course [...] Team Personnel Name: Alexandra Colmenares RN Position: [facility] ED RN W/OE and Tasks Member Role: Primary Care Nurse Name: Garima Manzano RN Position: [facility] RN Member Role: Primary Care Nurse Name: Malgorzata Marinelli RN Position: [facility] RN Member Role: Primary Care Nurse Name: Joyce Roach RN Position: [facility] RN Member Role: Primary Care Nurse Name: Mary Suazo RN Position: [facility] RN Member Role: Primary Care Nurse Name: Andres Pressley RN Position: [facility] RN Member Role: Primary Care Nurse Name: Jany Baig DO Position: [facility] Primary Care Physician Member Role: PCP Address: Address: [address] [place] [address] [facility] [address] Name: Neida Ballard RN Position: [facility] RN Member Role: Primary Care Nurse Name: Kaye Payne RN Position: [facility] RN Member Role: Primary Care Nurse Name: Garima Hutchinson Position: [facility] RN Member Role: Primary Care Nurse Name: Malgorzata Austin Position: [facility] RN Member Role: Primary Care Nurse Name: Torrie Hernandez RN Position: [facility] OB RN Member Role: Primary Care Nurse Name: Gretchen Knutson RN Position: [facility] SN RN Member Role: Primary Care Nurse Name: Aislinn Mckee RN Position: [facility] RN Member Role: Primary Care Nurse Name: Ashley Mcelroy Position: [facility] RN Member Role: Primary Care Nurse Name: Cody Garcia Position: [facility] Associate Professional Member Role: Lifetime Consulting Provider Address: Address: [address] [place] [id number]- Name: Ge Covarrubias RN Position: [facility] RN Member Role: Primary Care Nurse Name: Orin Elmore RN Position: [facility] ED RN W/OE and Tasks Member Role: Primary Care Nurse Name: Allegra Liu RN Position: [facility] PCO RN Member Role: Primary Care Nurse Name: Shayan Pandya MD Position: [facility] Renal MD Member Role: Lifetime Consulting Physician Address: Address: [address] [facility], [place] [address]- Name: Darlene Rodrigez RN Position: S RN Member Role: Primary Care Nurse Name: Kwan Mills RN Position: S RN Member Role: Primary Care Nurse Name: Dolores Can RN Position: S RN Member Role: Primary Care Nurse Name: Kim Rendon RN Position: S RN Member Role: Primary Care Nurse Name: Monica Rowell RN Position: S RN Member Role: Primary Care Nurse Care Team Related Persons Name: MARLEN CABEZAS Address: [address] [address] Name: MARLEN CABEZAS Address: home [address] [place] [id number] Name: NICK CABEZAS Name: GEMA CAB[place]ZAS Address: [place] [address]
--- OUTSIDE RECORDS SUMMARY | 2023-12-15 20:45 | XMS_ITS | Continuity of Care Document ---
Author Organization [facility] Address [address] [place] [address]- Care Team Providers Care Community Engagement Coordinator Name Role Phone Jany Baig DO Primary Care Physician [facility]): 03[facility]22[facility]23 - 04/21/23 [facility] [address] [place] [id number]- Allergies, Adverse Reactions, Alerts Substance Reaction Severity [...] acel (oldterm) 08/02/12 Give n 1Result Comment: [facility]: [id number] 2Result Comment: [04/29/2017] [id number] 3Admin Note: FLUARIX 4Admin Note: 3 RDINJ 5Admin Note: #2 Medications acamprosate 333 mg oral delayed release tablet 1 tablet = 333 mg, By Mouth, 3 times a day, # 42 tablet, 4 Refills, Maintenance, 11/05/22 11:31:00 EDT, EC Tablet, [facility], Partial fill upon patient request if the prescription is for a schedule II opioid drug., 175, cm, 11/05/22 10:21:00... Start Date: 11/05/22 Stop Date: 01/14/23 Status: Ordered amLODIPine 5 mg oral tablet 1 tablet, By Mouth, Daily, ^1R1., # 30 tablet, 5 Refills, Maintenance, 12/22/22 7:20:00 EDT, [facility], 175, cm, 12/03/22 11:50:00 EDT, Height, 88.9, kg, 10/21/22 20:41:00 EDT, Dry Weight Start Date: 12/22/22 Status: Ordered baclofen 10 mg oral tablet See Instructions, TAKE ONE TABLET BY MOUTH THREE TIMES A DAY ^1R1,1R2,1R4, # 90 tablet, Refills 5, Tot. Refills 5, Maintenance, 01/14/23 17:55:00 EDT, Instructions Replace Required Details, Route to Pharm[facility], [facility], 175, cm... Start Date: 01/14/23 Status: Ordered calcium (as carbonate)-vitamin D 500 mg-400 intl units oral tablet 1 tablet, By Mouth, Daily, ^1R1., # 28 tablet, 0 Refills, Maintenance, 12/01/22 16:12:00 EDT, [facility], 28, 1 tablet By Mouth Daily,Instr:^1R1., [...] capsule, 6 Refills, Maintenance, 12/03/22 12:13:00 EDT, [facility], 175, cm, 12/03/22 11:50:00 EDT, Height, [...] Gm, 12 Refills, Maintenance, 03/24/23 10:52:00 EDT, [facility], 28, APPLY TOPICALLY TO AFFECTED AREA(S) [...] 05/03/23 12:01:00 EST, 03/22/23 12:01:00 EDT, Tablet, [facility]acy #[id number], Partial fill upon patient request if [...] Gm, 11 Refills, Maintenance, 08/07/22 12:12:00 EST, [facility]acy #[id number], 30, USE 1 SPRAY(S) INTO EACH NOSTRIL TWICE A DAY, 176, cm,08/07/22 11:37:00 EST, Height, 79.8, kg, 07/31/22 2... Start Date: 08/07/22 Status: Ordered folic acid 1 mg oral tablet 1, tablet, By Mouth, Daily, ^1R1., # 30 tablet, Refills 5, Maintenance, 03/20/23 16:22:00 EDT, Route to Pharmacy Electronically, [facility], 175, cm, 03/20/23 15:31:00 EDT, Height, 77.5, kg, 03/20/23 11:30:00 EDT, Dry Weight Start Date: 03/20/23 Status: Ordered furosemide 20 mg oral tablet 20 mg, 1, tablet, By Mouth, Every other day, # 30 tablet, Refills 3, Tot. Refills 3, Maintenance, 01/28/23 12:31:00 EDT, [facility], Partial fill upon patient request if the prescription is for a schedule II o... Start Date: 01/28/23 Status: Ordered gabapentin 300 mg oral capsule 300 mg, 1, capsule, By Mouth, Daily at bedtime, note dose/frequency change, # 90 capsule, Refills 4, Tot. Refills 4, Maintenance, 11/05/22 11:05:00 EDT, Route to Pharmacy Electronically, [facility], 175, cm, 11/05/22 10:21:00 EDT, Height, 88.9... Start Date: 11/05/22 Stop Date: 01/29/24 Status: Ordered hydrOXYzine hydrochloride 10 mg oral tablet 2 tablet, By Mouth, 2 times a day, PRN NEEDED FOR ANXIETY (VIAL), # 30 tablet, 3 Refills, Maintenance, 04/16/23 16:41:00 EDT, [facility], 175, cm, 03/22/23 6:50:00 EDT, Height, 77.5, kg, 03/20/23 11:30:00 EDT, Dry Weight Start Date: 04/16/23 Status: Ordered lactulose 10 gm/15 ml oral syrup 15 mL, By Mouth, 2 times a day, # 120 mL, 6 Refills, Maintenance, 02/26/23 10:11:00 EDT, [facility], 4, TAKE 15ML BY MOUTH TWO TIMES A DAY, 175, cm, 12/03/22 11:50:00 EDT, Height, 84, kg, 02/12/23 11:30:00 EDT, Dry Weight Start Date: 02/26/23 Status: Ordered magnesium oxide 400 mg oral tablet See Instructions, TAKE 1 TABLET BY MOUTH TWICE A DAY^1R1,1R4, # 60 tablet, 11 Refills, Maintenance,01/28/23 12:31:00 EDT, [facility], 175, cm, 12/03/22 11:50:00 EDT, Height, 88.9, kg, 10/21/22 20:41:00 EDT, Dry Weight Start Date: 01/28/23 Status: Ordered Melatonin 3 mg oral tablet 1 tablet, By Mouth, Daily at bedtime, PRN NEEDED FOR INSOMNIA (PACKAGE IN TRAY)^1R4, # 60 tablet, 5 Refills, Maintenance, 04/16/23 16:41:00 EDT, [facility], 60, TAKE 1 TABLET BY [...] 10:11:00 EDT, Route to Pharmacy Electronically, [facility], 175, cm, 12/03/22 11:50:00 EDT, [...] 05/03/23 12:02:00 EST, 03/22/23 12:02:00 EDT, Capsule, [facility] #[id number], Partial fill upon patient request if the prescription is for a schedule II opioid drug., 175, c... Start Date: 03/22/23 Stop Date: 05/03/23 Status: Ordered spironolactone 25 mg oral tablet 1, tablet, By Mouth, Daily, ^1R2., # 30 tablet, Refills 5, Tot. Refills 5, Maintenance, 04/14/23 12:41:00 EDT, Route to Pharmacy Electronically, [facility], 175, cm, 03/22/23 6:50:00 EDT, Height, 77.5, kg, 03/20/23 11:30:00 EDT, Dry Weight Start Date: 04/14/23 Status: Ordered Tab-A-Jesse oral tablet 1 tablet, By Mouth, Daily, # 90 tablet, 1 Refills, 12/01/22 12:59:00 EDT, [facility], 28, 1tablet By Mouth Daily, 175, cm, 11/13/22 10:42:00 EDT, Height, 88.9, kg, 10/21/22 20:41:00 EDT, DryWeight Start Date: 12/01/22 Status: Ordered traZODone 50 mg oral tablet 2, tablet, By Mouth, Daily at bedtime, ^2R4., # 60 tablet, Refills 5, Maintenance, 02/26/23 10:11:00 EDT, Route to Pharmacy Electronically, [facility], 175, cm, 12/03/22 11:50:00 EDT, Height,84, [...] 02/09/23 23:18:00 EDT, Route to Pharmacy Electronically, [facility], 175, cm, 12/03/22 11:50:00 EDT, Height, 88.9, kg, 10/21/22 20:41:00 EDT, Dry Weight Start Date: 02/09/23 Status: Ordered Vitamin B6 50 mg oral tablet 1, tablet, By Mouth, Daily, R1., # 90 tablet, Refills 4, Maintenance, 11/16/22 13:39:00 EDT, Route to Pharmacy Electronically, [facility], 175, cm, 11/13/22 10:42:00 EDT, Height, [...] tablet, 3 Refills, Maintenance, 02/26/23 10:11:00 EDT, [facility], 175, cm, 12/03/22 11:50:00 EDT, Height, [...] Team Personnel Name: Alexandra Colmenares RN Position: [facility] ED RN W/OE and Tasks Member Role: Primary Care Nurse Name: Garima Manzano RN Position: [facility] RN Member Role: Primary Care Nurse Name: Malgorzata Marinelli RN Position: [facility] RN Member Role: Primary Care Nurse Name: Joyce Roach RN Position: [facility] ED RN W/OE and Tasks Member Role: Primary Care Nurse Name: Mary Suazo RN Position: [facility] RN Member Role: Primary Care Nurse Name: Andres Pressley RN Position: [facility] RN Member Role: Primary Care Nurse Name: Jany Baig DO Position: [facility] Physician - Primary Care Member Role: PCP Address: Address: [address] [place] [address] Adult & Pediatric Medicine [address] Name: Kaye Payne RN Position: [facility] RN Member Role: Primary Care Nurse Name: Garima Hutchinson Position: [facility] RN Member Role: Primary Care Nurse Name: Malgorzata Austin Position: [facility] RN Member Role: Primary Care Nurse Name: Ibeth Adams RN Position: [facility] RN Member Role: Primary Care Nurse Name: Torrie Hernandez RN Position: [facility] OB RN Member Role: Primary Care Nurse Name: Gretchen Knutson RN Position: [facility] SN RN Member Role: Primary Care Nurse Name: Aislinn Mckee RN Position: [facility] RN Member Role: Primary Care Nurse Name: Ashley Mcelroy Position: [facility] RN Member Role: Primary Care Nurse Name: Ashok Kevin RN Position: [facility] RN Member Role: Primary Care Nurse Name: Cody Garcia Position: [facility] Associate Professional Member Role: Lifetime Consulting Provider Address: Address: [address] [place] [address]- Name: Paige Nascimento RN Position: [facility] RN Member Role: Primary Care Nurse Name: Ge Covarrubias RN Position: [facility] RN Member Role: Primary Care Nurse Name: Orin Elmore RN Position: [facility] ED RN W/OE and Tasks Member Role: Primary Care Nurse Name: Allegra Liu RN Position: [facility] AMB Nurse Member Role: Primary Care Nurse Name: Shayan Pandya MD Position: [facility] Renal MD Member Role: Lifetime Consulting Physician Address: Address: [address] [place] [address] [address] [facility], [place] [address]- Name: Darlene Rodrigez RN Position: [facility] RN Member Role: Primary Care Nurse Name: Dolores Can RN Position: [facility] RN Member Role: Primary Care Nurse Name: Ingrid Verdugo RN Position: [facility] RN Member Role: Primary Care Nurse Name: Monica Rowell RN Position: [facility] RN Member Role: Primary Care Nurse Name: Jimi Fitzpatrick RN Position: [facility] RN Member Role: Primary Care Nurse Care Team Related Persons Name: MARLEN CABEZAS Address: home [address] [place] [id number] Name: MARLEN CABEZAS Address: home [address] [place] [id number] Name: NICK CABEZAS Name: GEMA CABEZAS Address: home [address] [place] [id number]
--- OUTSIDE RECORDS SUMMARY | 2023-12-15 20:46 | XMS_ITS | Continuity of Care Document ---
Author Organization [facility] Address [address] [place] [address]- Care Team Providers Care Criminalist Technician Name Role Phone Jany Baig DO Primary Care Physician [facility] Date[facility]): 11/16/22 - 12/16/22 [facility] [address] [place], [place] [address] Allergies, Adverse Reactions, Alerts [...] acel (oldterm) 08/02/12 Give n 1Result Comment: [facility]: [id number] 2Result Comment: [04/29/2017] [id number] 3Admin Note: FLUARIX 4Admin Note: 3 RDINJ 5Admin Note: #2 Medications acamprosate 333 mg oral delayed release tablet 1 tablet = 333 mg, By Mouth, 3 times a day, # 42 tablet, 4 Refills, Maintenance, 11/05/22 11:31:00 EDT, EC Tablet, [facility], Partial fill upon patient request if the prescription is for a schedule II opioid drug., 175, cm, 11/05/22 10:21:00... Start Date: 11/05/22 Stop Date: 01/14/23 Status: Ordered amLODIPine 5 mg oral tablet 1 tablet, By Mouth, Daily, ^1R1., # 30 tablet, 2 Refills, Maintenance, 10/06/22 4:58:00 EDT, [facility], 176, cm, 09/07/22 8:56:00 EDT, Height, 82.1, kg, 09/07/22 8:59:00 EDT, Dry Weight Start Date: 10/06/22 Status: Ordered baclofen 10 mg oral tablet See Instructions, TAKE 1 TABLET BY MOUTH THREE TIMES DAILY, # 90 tablet, Refills 0, Tot. Refills 0,Maintenance, 12/01/22 16:12:00 EDT, Instructions Replace Required Details, [facility], 175, cm, 11/13/22 10:4... Start Date: 12/01/22 Status: Ordered calcium (as carbonate)-vitamin D 500 mg-400 intl units oral tablet 1 tablet, By Mouth, Daily, ^1R1., # 28 tablet, 0 Refills, Maintenance, 12/01/22 16:12:00 EDT, [facility], 28, 1 tablet By Mouth Daily,Instr:^1R1., 175, cm, 11/13/22 10:42:00 EDT, Height, 88.9, kg, 10/21/22 20:41:00 EDT, Dry Weight Start Date: 12/01/22 Status: Ordered CALCIUM + D 500/400 TABS CALCIUM + D 500/400 TABS, 1, tablet, By Mouth, Daily, # 28 tablet, 0 Refills, Maintenance, ^1R2., 10/29/22 13:05:00 EDT, 175, cm, 10/21/22 20:41:00 EDT, Height, 88.9, kg, 10/21/22 20:41:00 EDT, Dry Weight Start Date: 10/29/22 Status: Ordered Co Q-10 100 mg oral capsule See Instructions, TAKE 1 CAPSULE BY MOUTH FOUR TIMES DAILY, # 120 capsule, 6 Refills, Maintenance, 12/03/22 12:13:00 EDT, [facility], 175, cm, 12/03/22 11:50:00 EDT, [...] EDT, Compound Start Date: 11/13/22 Status: Ordered Disposable Underpads n39.498 Disposable Underpads n39.498, See Instructions, # 84 each, Refills 11, Tot. Refills 11, Maintenance, 2 daily per 6 wk period, 11/13/22 12:53:00 EDT, Compound Start Date: 11/13/22 Status: Ordered Eucerin Original Healing Cream Eucerin [...] 10/06/22 4:59:00 EDT, Route to Pharmacy Electronically, [facility], 176, cm, 09/07/22 8:56:00 EDT, Height, 82.1, kg, 09/07/22 8:59:00 EDT, Dry Weight Start Date: 10/06/22 Status: Ordered furosemide 20 mg oral tablet 20 mg, 1, tablet, By Mouth, Every other day, # 30 tablet, Refills 0, Tot. Refills 0, Maintenance, 10/24/22 9:56:00 EDT, Do Not Route, Partial fill upon patient request if the prescription is for a schedule II opioid drug. Start Date: 10/24/22 Status: Ordered furosemide 20 mg oral tablet 1, tablet, By Mouth, Daily, R1., # 30 tablet, Refills 5, Tot. Refills 5, Maintenance, 09/03/22 14:50:00 EDT, Route to Pharmacy Electronically, [facility], 169, cm, 09/03/22 14:21:00 EDT, Height, 69, kg, 08/16/22 1:04:00 EST, Dry Weight Start Date: 09/03/22 Status: Ordered gabapentin 300 mg oral capsule 300 mg, 1, capsule, By Mouth, Daily at bedtime, note dose/frequency change, # 90 capsule, Refills 4, Tot. Refills 4, Maintenance, 11/05/22 11:05:00 EDT, Route to Pharmacy Electronically, [facility], 175, cm, 11/05/22 10:21:00 EDT, Height, 88.9... Start Date: 11/05/22 Stop Date: 01/29/24 Status: Ordered hydrOXYzine hydrochloride 10 mg oral tablet 2 tablet, By Mouth, 2 times a day, PRN NEEDED FOR ANXIETY (VIAL), # 30 tablet, 3 Refills, Maintenance, 09/24/22 17:01:00 EDT, [facility], 176, cm, 09/07/22 8:56:00 EDT, Height, 82.1, kg, 09/07/22 8:59:00 EDT, Dry Weight Start Date: 09/24/22 Status: Ordered lactulose 10 gm/15 ml oral syrup 15 mL, By Mouth, 2 times a day, # 120 mL, 6 Refills, Maintenance, 09/22/22 12:15:00 EDT, [facility], 4, TAKE 15ML BY MOUTH TWO TIMES A DAY, 176, cm, 09/07/22 8:56:00 EDT, Height, 82.1, kg, 09/07/22 8:59:00 EDT, Dry Weight Start Date: 09/22/22 Status: Ordered Lidoderm 5% film 1 patch, Topically, Daily, remove patches after 12 hours NSAIDS contraindicated High dose tylenol contraindicated remove patches after 12 hours Nueropathy, # 30 patch, 5 Refills, Maintenance, 11/05/22 11:04:00 EDT, [facility], Partial klaudia... Start Date: 11/05/22 Status: Ordered Melatonin 3 mg oral tablet 1 tablet, By Mouth, Daily at bedtime, PRN NEEDED FOR INSOMNIA (PACKAGE IN TRAY)^1R4, # 60 tablet, 5 Refills, Maintenance, 06/12/22 18:11:00 EST, [facility], 60, TAKE 1 TABLET BY [...] 09/03/22 14:53:00 EDT, Route to Pharmacy Electronically, [facility], Partial fill upon patient request if the prescription is for a schedule II opioid drug... Start Date: 09/03/22 Stop Date: 03/02/23 Status: Ordered R aircast ankle-stirrup support brace R aircast ankle-stirrup support brace, See Instructions, # 1 each, Refills 0, Tot. Refills 0, Maintenance, Dx: R inversion ankle sprain s93.409a, 01/06/22 12:31:00 EDT, Supply Start Date: 01/06/22 Status: Ordered spironolactone 25 mg oral tablet 25 mg, 1, tablet, By Mouth, Daily, # 30 tablet, Refills 5, Tot. Refills 5, Maintenance, 11/05/22 11:31:00 EDT, Route to Pharmacy Electronically, [facility], Partial fill upon patient request if the prescription is for a schedule II opioid drug... Start Date: 11/05/22 Status: Ordered Tab-A-Jesse oral tablet 1 tablet, By Mouth, Daily, # 90 tablet, 1 Refills, 12/01/22 12:59:00 EDT, [facility], 28, 1tablet By Mouth Daily, 175, cm, 11/13/22 10:42:00 EDT, Height, 88.9, kg, 10/21/22 20:41:00 EDT, DryWeight Start Date: 12/01/22 Status: Ordered traZODone 50 mg oral tablet 2 tablets, By Mouth, Daily at bedtime, # 60 each, Refills 5, Tot. Refills 5, Maintenance, 09/03/22 17:13:00 EDT, Route to Pharmacy Electronically, [facility], 169, cm, 09/03/22 14:21:00 EDT, Height, 69, kg, 08/16/22 1:04:00 EST, Dry Weight Start Date: 09/03/22 Status: Ordered Urinal Urinal, See Instructions, # 1 each, Refills 3, Tot. Refills 3, Maintenance, Dx: Cirrhoisis, ambulatory dysfunction, incontinency, 11/13/22 11:17:00 EDT, Supply Start Date: 11/13/22 Status: Ordered Vitamin B1 100 mg oral tablet 1, tablet, By Mouth, Daily, # 90 tablet, Refills 3, Maintenance, 03/13/22 8:37:00 EDT, Route to Pharmacy Electronically, [facility], 175, cm, 01/06/22 10:34:00 EDT, Height, 78.3, kg, 12/26/2218:05:00 EDT, Dry Weight Start Date: 03/13/22 Status: Ordered Vitamin B6 50 mg oral tablet 1, tablet, By Mouth, Daily, R1., # 90 tablet, Refills 4, Maintenance, 11/16/22 13:39:00 EDT, Route to Pharmacy Electronically, [facility], 175, cm, 11/13/22 10:42:00 EDT, Height, 88.9, kg, 10/21/22 20:41:00 EDT, Dry Weight Start Date: 11/16/22 Status: Ordered Voltaren 1% topical gel 1 application, Topically, 4 times a day, PRN for pain, # 100 Gm, 0 Refills, Maintenance, 12/01/22 16:12:00 EDT, Gel, [facility], Partial fill upon patient request if the prescription is for aschedule II opioid drug., 1 application Topically 4... Start Date: 12/01/22 Status: Ordered Walker See Instructions, # 1 each, Maintenance, 2 wheeled Walker. Dx: Falls, gait abnormality, 10/24/22 10:07:00 EDT, Supply Start Date: 10/24/22 Status: Ordered Xifaxan 550 mg oral tablet 1 tablet, By Mouth, 2 times a day, ^1R1,1R4., # 60 tablet, 3 Refills, Maintenance, 10/01/22 15:19:00 EDT, [facility], 176, cm, 09/07/22 8:56:00 EDT, Height, [...] Team Personnel Name: Alexandra Colmenares RN Position: [facility] ED RN W/OE and Tasks Member Role: Primary Care Nurse Name: Garima Manzano RN Position: [facility] RN Member Role: Primary Care Nurse Name: Malgorzata Marinelli RN Position: [facility] RN Member Role: Primary Care Nurse Name: Joyce Roach RN Position: [facility] RN Member Role: Primary Care Nurse Name: Mary Suazo RN Position: [facility] RN Member Role: Primary Care Nurse Name: Andres Pressley RN Position: [facility] RN Member Role: Primary Care Nurse Name: Jany Baig DO Position: [facility] Physician - Primary Care Member Role: PCP Address: Address: [address] [place] [address] Adult [place] [address]- Name: Neida Ballard RN Position: [facility] RN Member Role: Primary Care Nurse Name: Kaye Payne RN Position: [facility] RN Member Role: Primary Care Nurse Name: Garima Hutchinson Position: [facility] RN Member Role: Primary Care Nurse Name: Malgorzata Austin Position: [facility] RN Member Role: Primary Care Nurse Name: Ibeth Adams RN Position: [facility] RN Member Role: Primary Care Nurse Name: Torrie Hernandez RN Position: [facility] OB RN Member Role: Primary Care Nurse Name: Gretchen Knutson RN Position: [facility] SN RN Member Role: Primary Care Nurse Name: Aislinn Mckee RN Position: [facility] RN Member Role: Primary Care Nurse Name: Ashley Mcelroy Position: [facility] RN Member Role: Primary Care Nurse Name: Cody Garcia Position: [facility] Associate Professional Member Role: Lifetime Consulting Provider Address: Address: [address] [place] [address]- Name: Ge Covarrubias RN Position: [facility] RN Member Role: Primary Care Nurse Name: Orin Elmore RN Position: [facility] ED RN W/OE and Tasks Member Role: Primary Care Nurse Name: Allegra Liu RN Position: [facility] AMB Nurse Member Role: Primary Care Nurse Name: Shayan Pandya MD Position: [facility] Renal MD Member Role: Lifetime Consulting Physician Address: Address: [address] [place] [address] [address] [facility] [place] [address]- Name: Darlene Rodrigez RN Position: [facility] RN Member Role: Primary Care Nurse Name: Kwan Mills RN Position: S RN Member Role: Primary Care Nurse Name: Dolores Can RN Position: [facility] RN Member Role: Primary Care Nurse Name: Kim Rendon RN Position: [facility] RN Member Role: Primary Care Nurse Name: Monica Rowell RN Position: [facility] RN Member Role: Primary Care Nurse Name: Jimi Fitzpatrick RN Position: [facility] RN Member Role: Primary Care Nurse Care Team Related Persons Name: MARLEN ACBEZAS Address: [place] [address] Name: MARLEN CABEZAS Address: [place] [address] Name: NICK CABEZAS Name: GEMA CABEZAS Address: [place] [address]
--- OUTSIDE RECORDS SUMMARY | 2023-12-15 20:46 | XMS_ITS | Continuity of Care Document ---
Author Organization [facility] Address [address] [place] [address]- Care Team Providers Care Asset Management Analyst Name Role Phone Jany Baig DO Primary Care Physician [facility]): 01/27/23 - 02/26/23 [facility] [address] [place] [address]- Allergies, Adverse Reactions, Alerts Substance Reaction Severity [...] (oldterm) 08/02/12 Give n 1Result Comment: [facility]: [id number] 2Result Comment: [04/29/2017] [id number] 3Admin Note: FLUARIX 4Admin Note: 3 RDINJ 5Admin Note: #2 Medications acamprosate 333 mg oral delayed release tablet 1 tablet = 333 mg, By Mouth, 3 times a day, # 42 tablet, 4 Refills, Maintenance, 11/05/22 11:31:00 EDT, EC Tablet, [facility], Partial fill upon patient request if the prescription is for a schedule II opioid drug., 175, cm, 11/05/22 10:21:00... Start Date: 11/05/22 Stop Date: 01/14/23 Status: Ordered amLODIPine 5 mg oral tablet 1 tablet, By Mouth, Daily, ^1R1., # 30 tablet, 5 Refills, Maintenance, 12/22/22 7:20:00 EDT, [facility], 175, cm, 12/03/22 11:50:00 EDT, Height, 88.9, kg, 10/21/22 20:41:00 EDT, Dry Weight Start Date: 12/22/22 Status: Ordered baclofen 10 mg oral tablet See Instructions, TAKE ONE TABLET BY MOUTH THREE TIMES A DAY ^1R1,1R2,1R4, # 90 tablet, Refills 5, Tot. Refills 5, Maintenance, 01/14/23 17:55:00 EDT, Instructions Replace Required Details, [facility] to [facility], [facility], 175, cm... Start Date: 01/14/23 Status: Ordered calcium (as carbonate)-vitamin D 500 mg-400 intl units oral tablet 1 tablet, By Mouth, Daily, ^1R1., # 28 tablet, 0 Refills, Maintenance, 12/01/22 16:12:00 EDT, [facility], 28, 1 tablet By Mouth Daily,Instr:^1R1., 175, cm, 11/13/22 10:42:00 EDT, Height, 88.9, kg, 10/21/22 20:41:00 EDT, Dry Weight Start Date: 12/01/22 Status: Ordered CALCIUM + D 500/400 TABS CALCIUM + D 500/400 TABS, 1, tablet, By Mouth, Daily, # 28 tablet, 0 Refills, Maintenance, ^1R2., 02/26/23 10:12:00 EDT, 175, cm, 12/03/22 11:50:00 EDT, Height, 84, kg, 02/12/23 11:30:00 EDT, Dry Weight Start Date: 02/26/23 Status: Ordered CALCIUM + D 500/400 TABS CALCIUM + D 500/400 TABS, 1, tablet, By Mouth, Daily, # 28 tablet, 0 Refills, Maintenance, ^1R2., 10/29/22 13:05:00 EDT, 175, cm, 10/21/22 20:41:00 EDT, Height, 88.9, kg, 10/21/22 20:41:00 EDT, Dry Weight Start Date: 10/29/22 Status: Ordered CALCIUM + D 500/400 TABS CALCIUM + D 500/400 TABS, See Instructions, # 28 tablet, 0 Refills, Maintenance, TAKE ONE TABLET BYMOUTH EVERY DAY ^1R2, 01/28/23 12:31:00 EDT, 175, cm, 12/03/22 11:50:00 EDT, Height, 88.9, kg, 10/21/22 20:41:00 EDT, Dry Weight Start Date: 01/28/23 Status: Ordered CALCIUM + D 500/400 TABS CALCIUM + D 500/400 TABS, 1, tablet, By Mouth, Daily, # 28 tablet, 0 Refills, Maintenance, ^1R2., 12/22/22 16:58:00 EDT, 175, cm, 12/03/22 11:50:00 EDT, Height, 88.9, kg, 10/21/22 20:41:00 EDT, Dry Weight Start Date: 12/22/22 Status: Ordered Co Q-10 100 mg oral capsule See Instructions, TAKE 1 CAPSULE BY MOUTH FOUR TIMES DAILY, # 120 capsule, 6 Refills, Maintenance, 12/03/22 12:13:00 EDT, [facility], 175, cm, 12/03/22 11:50:00 EDT, Height, [...] DAY NEEDED FOR PAIN (BULK), #100 Gm, 0 Refills, Maintenance, 02/26/23 10:12:00 EDT, [facility], 28, APPLY TOPICALLY TO AFFECTED AREA(S) FOUR TIMES A DAY NEEDED FOR PAIN... Start Date: 02/26/23 Status: Ordered Disposable Underpads n39.498 Disposable Underpads [...] Gm, 11 Refills, Maintenance, 08/07/22 12:12:00 EST, [facility]acy #[id number], 30, USE 1 SPRAY(S) INTO EACH NOSTRIL TWICE A DAY, 176, cm,08/07/22 11:37:00 EST, Height, 79.8, kg, 07/31/22 2... Start Date: 08/07/22 Status: Ordered folic acid 1 mg oral tablet 1, tablet, By Mouth, Daily, R1., # 30 tablet, Refills 5, Tot. Refills 5, Maintenance, 10/06/22 4:59:00 EDT, Route to Pharmacy Electronically, [facility], 176, cm, 09/07/22 8:56:00 EDT, Height, 82.1, kg, 09/07/22 8:59:00 EDT, Dry Weight Start Date: 10/06/22 Status: Ordered furosemide 20 mg oral tablet 1, tablet, By Mouth, Daily, R1., # 30 tablet, Refills 5, Tot. Refills 5, Maintenance, 09/03/22 14:50:00 EDT, [facility], 169, cm, 09/03/22 14:21:00 EDT, Height, 69, kg, 08/16/22 1:04:00 EST, Dry Weight Start Date: 09/03/22 Status: Ordered furosemide 20 mg oral tablet 20 mg, 1, tablet, By Mouth, Every other day, # 30 tablet, Refills 3, Tot. Refills 3, Maintenance, 01/28/23 12:31:00 EDT, Route to Pharmacy Electronically, [facility], Partial fill upon patient request if the prescription is for a schedule II o... Start Date: 01/28/23 Status: Ordered gabapentin 300 mg oral capsule 300 mg, 1, capsule, By Mouth, Daily at bedtime, note dose/frequency change, # 90 capsule, Refills 4, Tot. Refills 4, Maintenance, 11/05/22 11:05:00 EDT, Route to Pharmacy Electronically, [facility], 175, cm, 11/05/22 10:21:00 EDT, Height, 88.9... Start Date: 11/05/22 Stop Date: 01/29/24 Status: Ordered hydrOXYzine hydrochloride 10 mg oral tablet 2 tablet, By Mouth, 2 times a day, PRN NEEDED FOR ANXIETY (VIAL), # 30 tablet, 3 Refills, Maintenance, 12/22/22 16:57:00 EDT, [facility], 175, cm, 12/03/22 11:50:00 EDT, Height, 88.9, kg, 10/21/22 20:41:00 EDT, Dry Weight Start Date: 12/22/22 Status: Ordered lactulose 10 gm/15 ml oral syrup 15 mL, By Mouth, 2 times a day, # 120 mL, 6 Refills, Maintenance, 02/26/23 10:11:00 EDT, [facility], 4, TAKE 15ML BY MOUTH TWO TIMES A DAY, 175, cm, 12/03/22 11:50:00 EDT, Height, 84, kg, 02/12/23 11:30:00 EDT, Dry Weight Start Date: 02/26/23 Status: Ordered Lidoderm 5% film 1 patch, Topically, Daily, remove patches after 12 hours NSAIDS contraindicated High dose tylenol contraindicated remove patches after 12 hours Nueropathy, # 30 patch, 5 Refills, Maintenance, 11/05/22 11:04:00 EDT, [facility], Partial klaudia... Start Date: 11/05/22 Status: Ordered magnesium oxide 400 mg oral tablet See Instructions, TAKE 1 TABLET BY MOUTH TWICE A DAY^1R1,1R4, # 60 tablet, 11 Refills, Maintenance,01/28/23 12:31:00 EDT, [facility], 175, cm, 12/03/22 11:50:00 EDT, Height, 88.9, kg, 10/21/22 20:41:00 EDT, Dry Weight Start Date: 01/28/23 Status: Ordered Melatonin 3 mg oral tablet 1 tablet, By Mouth, Daily at bedtime, PRN NEEDED FOR INSOMNIA (PACKAGE IN TRAY)^1R4, # 60 tablet, 5 Refills, Maintenance, 06/12/22 18:11:00 EST, [facility], 60, TAKE 1 TABLET BY [...] 02/26/23 10:11:00 EDT, Route to Pharmacy Electronically, [facility], 175, cm, 12/03/22 11:50:00 EDT, Height, [...] 11/05/22 11:31:00 EDT, Route to Pharmacy Electronically, [facility], Partial fill upon patient request if the prescription is for a schedule II opioid drug... Start Date: 11/05/22 Status: Ordered Tab-A-Jesse oral tablet 1 tablet, By Mouth, Daily, # 90 tablet, 1 Refills, 12/01/22 12:59:00 EDT, [facility], 28, 1tablet By Mouth Daily, 175, cm, 11/13/22 10:42:00 EDT, Height, 88.9, kg, 10/21/22 20:41:00 EDT, DryWeight Start Date: 12/01/22 Status: Ordered traZODone 50 mg oral tablet 2, tablet, By Mouth, Daily at bedtime, ^2R4., # 60 tablet, Refills 5, Maintenance, 02/26/23 10:11:00 EDT, Route to Pharmacy Electronically, [facility], 175, cm, 12/03/22 11:50:00 EDT, Height,84, [...] 02/09/23 23:18:00 EDT, Route to Pharmacy Electronically, [facility], 175, cm, 12/03/22 11:50:00 EDT, Height, 88.9, kg, 10/21/22 20:41:00 EDT, Dry Weight Start Date: 02/09/23 Status: Ordered Vitamin B6 50 mg oral tablet 1, tablet, By Mouth, Daily, R1., # 90 tablet, Refills 4, Maintenance, 11/16/22 13:39:00 EDT, Route to Pharmacy Electronically, [facility], 175, cm, 11/13/22 10:42:00 EDT, Height, [...] tablet, 3 Refills, Maintenance, 02/26/23 10:11:00 EDT, [facility], 175, cm, 12/03/22 11:50:00 EDT, Height, [...] Team Personnel Name: Alexandra Colmenares RN Position: [facility] ED RN W/OE and Tasks Member Role: Primary Care Nurse Name: Garima Manzano RN Position: [facility] RN Member Role: Primary Care Nurse Name: Malgorzata Marinelli RN Position: [facility] RN Member Role: Primary Care Nurse Name: Joyce Roach RN Position: [facility] RN Member Role: Primary Care Nurse Name: Mary Suazo RN Position: [facility] RN Member Role: Primary Care Nurse Name: Andres Pressley RN Position: [facility] RN Member Role: Primary Care Nurse Name: Jany Baig DO Position: [facility] Physician - Primary Care Member Role: PCP Address: Address: [address] [place] [address] Adult [place] [address]- Name: Neida Ballard RN Position: [facility] RN Member Role: Primary Care Nurse Name: Kaye Payne RN Position: [facility] RN Member Role: Primary Care Nurse Name: Garima Hutchinson Position: [facility] RN Member Role: Primary Care Nurse Name: Malgorzata Austin Position: [facility] RN Member Role: Primary Care Nurse Name: Ibeth Adams RN Position: [facility] RN Member Role: Primary Care Nurse Name: Torrie Hernandez RN Position: [facility] OB RN Member Role: Primary Care Nurse Name: Gretchen Knutson RN Position: [facility] SN RN Member Role: Primary Care Nurse Name: Aislinn Mckee RN Position: [facility] RN Member Role: Primary Care Nurse Name: Ashley Mcelroy Position: [facility] RN Member Role: Primary Care Nurse Name: Cody Garcia Position: [facility] Associate Professional Member Role: Lifetime Consulting Provider Address: Address: [address] [place] [address]- Name: Ge Covarrubias RN Position: [facility] RN Member Role: Primary Care Nurse Name: Orin Elmore RN Position: [facility] ED RN W/OE and Tasks Member Role: Primary Care Nurse Name: Allegra Liu RN Position: [facility] AMB Nurse Member Role: Primary Care Nurse Name: Shayan Pandya MD Position: [facility] Renal MD Member Role: Lifetime Consulting Physician Address: Address: [address] [place] [address] [address] [facility] [place], [place] [address]- Name: Darlene Rodrigez RN Position: [facility] RN Member Role: Primary Care Nurse Name: Kwan Mills RN Position: [facility] RN Member Role: Primary Care Nurse Name: Dolores Can RN Position: [facility] RN Member Role: Primary Care Nurse Name: Monica Rowell RN Position: S RN Member Role: Primary Care Nurse Name: Jimi Fitzpatrick RN Position: S RN Member Role: Primary Care Nurse Care Team Related Persons Name: RAULITOMARLEN Address: [place] [address] Name: MARLEN CABEZAS Address: [place] [address] Name: NICK CABEZAS Name: GEMA CABEZAS Address: [place] [address]
--- OUTSIDE RECORDS SUMMARY | 2023-12-15 20:46 | XMS_ITS | Continuity of Care Document ---
Author Organization [facility] Address [address] [place] [address]- Care Team Providers Care Risk Adjustment Specialist Name Role Phone Jany Baig DO Primary Care Physician [place] [facility] [place] 10/29/23 - 11/05/23 [facility] [address], [place] [address] Attending Physician: Benjie Berkowitz MD Referring Physician: Mary LEE, Tobias Jorgensen Allergies, Adverse Reactions, Alerts Substance Reaction Severity [...] (oldterm) 08/02/12 Give n 1Result Comment: [facility]: [id number] 2Result Comment: [04/29/2017] [id number] 3Admin Note: FLUARIX 4Admin Note: 3 RDINJ 5Admin Note: #2 Medications acamprosate 333 mg oral delayed release tablet 2 tablet = 666 mg, By Mouth, 3 times a day, # 180 tablet, 1 Refills, Maintenance, 07/28/23 11:04:00EST, EC Tablet, [facility], Partial fill upon patient request if the prescription is for a schedule II opioid drug., 175, cm, 07/28/23 9:11:0... Start Date: 07/28/23 Stop Date: 09/26/23 Status: Ordered Acetaminophen = 650 mg, By Mouth, Every 4 hours, PRN as needed for fever/pain, 0 Refills, Maintenance, 11/05/23 12:49:00 EDT, Partial fill upon patient request if the prescription is for a schedule II opioid drug. Start Date: 11/05/23 Status: Ordered amLODIPine 5 mg oral tablet 1 tablet, By Mouth, Daily, ^1R1., # 30 tablet, 2 Refills, Maintenance, 06/02/23 8:00:00 EST, [facility], 175, cm, 03/22/23 6:50:00 EDT, Height, 77.5, kg, 03/20/23 11:30:00 EDT, Dry Weight Start Date: 06/02/23 Status: Ordered baclofen 10 mg oral tablet 10 mg, 1, tablet, By Mouth, 3 times a day, # 90 tablet, Refills 2, Tot. Refills 2, Maintenance, 07/28/23 11:10:00 EST, Route to Pharmacy Electronically, [facility], Partial fill upon patient request if the prescription is for a schedule II o... Start Date: 07/28/23 Status: Ordered Calcium Carbonate-Vit D 500 mg/400IU Calcium Carbonate-Vit D 500 mg/400IU, See Instructions, # 30 each, Refills 3, Tot. Refills 3, Maintenance, Take one tablet by mouth daily, 07/28/23 11:08:00 EST, Supply, 175, cm, 07/28/23 9:11:00 EST, Height, 61.3, kg, 07/12/23 23:27:00 EST, Dry Weight Start Date: 07/28/23 Status: Ordered Coenzyme Q10 100 mg oral capsule 2 capsule = 200 mg, By Mouth, Daily at bedtime, # 60 capsule, 0 Refills, Maintenance, 11/05/23 12:43:00 EDT, Capsule, Partial fill upon patient request if the prescription is for a schedule II opioiddrug. Start Date: 11/05/23 Status: Ordered diclofenac 1% topical gel See Instructions, APPLY TOPICALLY TO AFFECTED AREA(S) FOUR TIMES A DAY NEEDED FOR PAIN (BULK), #100 Gm, 12 Refills, Maintenance, 07/28/23 11:06:00 EST, [facility], 28, APPLY TOPICALLY TO AFFECTED AREA(S) FOUR TIMES A DAY NEEDED FOR PA... Start Date: 07/28/23 Status: Ordered Docusate = 100 mg, By Mouth, 2 times a day, 0 Refills, Maintenance, 11/05/23 12:47:00 EDT, Partial fill uponpatient request if the prescription is for a schedule II opioid drug. Start Date: 11/05/23 Status: Ordered Fleet Enema 19 gm-7 gm rectal enema 1 each, Rectally, Daily, PRN for constipation, # 133 mL, 0 Refills, Maintenance, 11/05/23 12:51:00 EDT, Enema, Partial fill upon patient request if the prescription is for a schedule II opioid drug. Start Date: 11/05/23 Status: Ordered fluticasone 50 mcg/inh nasal spray See Instructions, USE 1 SPRAY(S) INTO EACH NOSTRIL TWICE A DAY, # 16 Gm, 1 Refills, Maintenance, 07/28/23 12:07:00 EST, [facility], 30, USE 1 SPRAY(S) INTO EACH NOSTRIL TWICE A DAY, 175, cm, 07/28/23 9:11:00 EST, Height, 61.3, kg, 07/12/23 2... Start Date: 07/28/23 Status: Ordered folic acid 1 mg oral tablet 1, tablet, By Mouth, Daily, ^1R1., # 30 tablet, Refills 5, Tot. Refills 5, Maintenance, 07/28/23 12:08:00 EST, Route to Pharmacy Electronically, [facility], 175, cm, 07/28/23 9:11:00 EST, Height, 61.3, kg, 07/12/23 23:27:00 EST, Dry Weight Start Date: 07/28/23 Status: Ordered furosemide 20 mg oral tablet 20 mg, 1, tablet, By Mouth, Every other day, # 30 tablet, Refills 1, Tot. Refills 1, Maintenance, 07/28/23 12:08:00 EST, Route to Pharmacy Electronically, [facility], Partial fill upon patient request if the prescription is for a schedule II... Start Date: 07/28/23 Status: Ordered gabapentin 300 mg oral capsule 300 mg, 1, capsule, By Mouth, Daily at bedtime, note dose/frequency change, # 30 capsule, Refills 1, Tot. Refills 1, Maintenance, 07/28/23 12:09:00 EST, Route to Pharmacy Electronically, [facility], 175, cm, 07/28/23 9:11:00 EST, Height, 61.... Start Date: 07/28/23 Stop Date: 10/20/24 Status: Ordered hydrOXYzine hydrochloride 10 mg oral tablet 2 tablet, By Mouth, 2 times a day, PRN NEEDED FOR ANXIETY (VIAL), # 30 tablet, 3 Refills, Maintenance, 07/28/23 12:10:00 EST, [facility], 175, cm, 07/28/23 9:11:00 EST, Height, 61.3, kg,07/12/23 23:27:00 EST, Dry Weight Start Date: 07/28/23 Status: Ordered lactulose 10 gm/15 ml oral syrup 30 mL = 20 Gm, By Mouth, 3 times a day, # 480 mL, 0 Refills, Maintenance, 11/05/23 12:40:00 EDT, Syrup, Partial fill upon patient request if the prescription is for a schedule II opioid drug. Start Date: 11/05/23 Status: Ordered magnesium oxide 400 mg oral tablet See Instructions, TAKE 1 TABLET BY MOUTH TWICE A DAY^1R1,1R4, # 60 tablet, 11 Refills, Maintenance,07/28/23 12:09:00 EST, [facility], 175, cm, 07/28/23 9:11:00 EST, Height, 61.3, kg, 07/12/23 23:27:00 EST, Dry Weight Start Date: 07/28/23 Status: Ordered Melatonin 3 mg oral tablet 1 tablet, By Mouth, Daily at bedtime, PRN NEEDED FOR INSOMNIA (PACKAGE IN TRAY)^1R4, # 60 tablet, 5 Refills, Maintenance, 07/28/23 12:09:00 EST, [facility], 60, 1 tablet By Mouth Daily at bedtime,PRN: NEEDED FOR INSOMNIA (PACKAGE IN TRA... Start Date: 07/28/23 Status: Ordered pantoprazole 40 mg oral delayed release tablet 1 tablet, By Mouth, Daily, ^1R1., # 30 tablet, 5 Refills, Maintenance, 07/28/23 12:12:00 EST, 175, cm, 07/28/23 9:11:00 EST, Height, 61.3, kg, 07/12/23 23:27:00 EST, Dry Weight Start Date: 07/28/23 Status: Ordered PARoxetine 10 mg oral tablet 20 mg, 2, tablet, By Mouth, Daily, ^1R1., # 60 tablet, Refills 5, Tot. Refills 5, Maintenance, 07/28/23 12:11:00 EST, Route to Pharmacy Electronically, [facility], 175, cm, 07/28/23 9:11:00EST, Height, 61.3, kg, 07/12/23 23:27:00 EST, Dry W... Start Date: 07/28/23 Status: Ordered polyethylene glycol 3350 oral powder for reconstitution = 17 Gm, By Mouth, Daily, dissolve in 4 to 8 oz of beverage, # 238 Gm, 0 Refills, Maintenance, 11/05/23 12:46:00 EDT, REC Powder, Partial fill upon patient request if the prescription is for a schedule II opioid drug. Start Date: 11/05/23 Status: Ordered Saljet Sterile 0.9% irrigation solution See Instructions, Use for wound care, delayed wound Right hip. T14.8XXD, # 1,000 mL, 3 Refills, Maintenance, 07/30/23 16:05:00 EST, Partial fill upon patient request if the prescription is for a schedule II opioid drug. Start Date: 07/30/23 Status: Ordered Senna = 8.6 mg, By Mouth, 2 times a day, 0 Refills, Maintenance, 11/05/23 12:35:00 EDT, Partial fill uponpatient request if the prescription is for a schedule II opioid drug. Start Date: 11/05/23 Status: Ordered Simethicone = 80 mg, By Mouth, 3 times a day, 0 Refills, Maintenance, 11/05/23 12:41:00 EDT, Partial fill upon patient request if the prescription is for a schedule II opioid drug. Start Date: 11/05/23 Status: Ordered spironolactone 25 mg oral tablet 1, tablet, By Mouth, Daily, ^1R2., # 30 tablet, Refills 5, Tot. Refills 5, Maintenance, 07/28/23 12:12:00 EST, Route to Pharmacy Electronically, [facility], 175, cm, 07/28/23 9:11:00 EST, Height, 61.3, kg, 07/12/23 23:27:00 EST, Dry Weight Start Date: 07/28/23 Status: Ordered Tab-A-Jesse oral tablet 1 tablet, By Mouth, Daily, R1., # 30 tablet, 5 Refills, Maintenance, 05/06/23 19:16:00 EST, [facility], 30, TAKE 1 TABLET BY MOUTH ONCE A DAY^1R1, 175, cm, 03/22/23 6:50:00 EDT, Height, 77.5,kg, 03/20/23 11:30:00 EDT, Dry Weight Start Date: 05/06/23 Status: Ordered traZODone 50 mg oral tablet 50 mg, 1, tablet, By Mouth, Daily at bedtime, ^2R4., # 60 tablet, Refills 5, Tot. Refills 5, Maintenance, 07/28/23 12:12:00 EST, Route to Pharmacy Electronically, [facility], 175, cm, 07/28/23 9:11:00 EST, Height, 61.3, kg, 07/12/23 23:27:00... Start Date: 07/28/23 Status: Ordered Vitamin B1 100 mg oral tablet 1, tablet, By Mouth, Daily, # 90 tablet, Refills 3, Tot. Refills 3, Maintenance, 07/28/23 12:12:00 EST, Route to Pharmacy Electronically, [facility], 175, cm, 07/28/23 9:11:00 EST, Height, 61.3, kg, 07/12/23 23:27:00 EST, Dry Weight Start Date: 07/28/23 Status: Ordered Vitamin B6 50 mg oral tablet 1, tablet, By Mouth, Daily, R1., # 90 tablet, Refills 4, Tot. 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 Vital Signs Most recent to oldest [Reference Range]: 1 Height 185 cm (10/29/23 10:16 AM) Weight 81.8 kg (10/29/23 10:16 AM) Oxygen Saturation [94-100 %] 98 % (10/29/23 10:16 AM) Pulse Rate [55-90 bpm] 90 bpm (10/29/23 10:16 AM) Body Mass Index [18.5-24.99 kg/m2] 23.9 kg/m2 (10/29/23 10:16 AM) Blood Pressure [90-138/55-84 mm Hg] 107/ 64mm Hg (10/29/23 10:16 AM) Respiratory Rate [16-30 br/min] 18 br/mi n (10/29/23 10:16 AM) Mode of Delivery (Oxygen) Room air (10/29/23 10:16 AM) Blood pressure sites Arm, left (10/29/23 10:16 AM) Weight Obtained Via Standing scale (10/29/23 10:16 AM) Social History Social History Type Response Smoking Status 10 or more cigarette s (1/2 pack or more)/day in last 30 days entered on: 02/04/19 Sex EKG study * Event Display: ECG 12-Lead Authored Date: Please click on pdf link to open report * Event Display: ECG 12-Lead Authored Date: Ventricular Rate: 78 BPM Atrial Rate: 78 BPM P-R Interval: 160 ms QRS Duration: 88 ms Q-T Interval: 388 ms QTC Calculation(Bazett): 442 ms P [place]: 10 degrees R [place]: 40 degrees T [place]: 46 degrees Normal sinus rhythm Normal ECG When compared with ECG of 15-JUL-2023 04:59, QT has shortened Confirmed by Jean Vines ([id number]) on 10/29/2023 11:09:21 AM [place]: Jean Vines Patient Care team information Care Team Personnel Name: Shira Galindo RN Position: [facility] RN Member Role: Primary Care Nurse Name: Alexandra Colmenares RN Position: [facility] ED RN W/OE and Tasks Member Role: Primary Care Nurse Name: Garima Manzano RN Position: [facility] RN Member Role: Primary Care Nurse Name: Malgorzata Marinelli RN Position: [facility] RN Member Role: Primary Care Nurse Name: Joyce Roach RN Position: [facility] ED RN W/OE and Tasks Member Role: Primary Care Nurse Name: Lucina Peralta RN Position: S RN Member Role: Primary Care Nurse Name: Maria Esther Craig LPN Position: [facility] RN Member Role: Primary Care Nurse Name: Kaye Comer RN Position: S RN Member Role: Primary Care Nurse Name: Andres Pressley RN Position: S RN Member Role: Primary Care Nurse Name: Jany Baig DO Position: [facility] Physician - Primary Care Member Role: PCP Address: Address: [address] [place] [address] Adult [facility] Pediatric Medicine [place], [place] [address] Name: Mary Haines RN Position: S RN Member Role: Primary Care Nurse Name: Garima Curry RN Position: [facility] RN Member Role: Primary Care Nurse Name: Malgorzata Austin Position: S RN Member Role: Primary Care Nurse Name: Ibeth Adams RN Position: [facility] RN Member Role: Primary Care Nurse Name: Torrie Hernandez RN Position: [facility] OB RN Member Role: Primary Care Nurse Name: Gretchen Knutson RN Position: [facility] SN RN Member Role: Primary Care Nurse Name: Aislinn Mckee RN Position: [facility] RN Member Role: Primary Care Nurse Name: Ashley Mcelroy Position: [facility] RN Member Role: Primary Care Nurse Name: Ashok Kevin RN Position: [facility] RN Member Role: Primary Care Nurse Name: Cody Garcia Position: [facility] Associate Professional Member Role: Lifetime Consulting Provider Address: Address: [address] [place] [address] Name: Paige Nascimento RN Position: [facility] RN Member Role: Primary Care Nurse Name: Ge Covarrubias RN Position: [facility] RN Member Role: Primary Care Nurse Name: Orin Elmore RN Position: [facility] ED RN W/OE and Tasks Member Role: Primary Care Nurse Name: Allegra Liu RN Position: [facility] AMB Nurse Member Role: Primary Care Nurse Name: Shayan Pandya MD Position: [facility] Renal MD Member Role: Lifetime Consulting Physician Address: Address: [address] [place] [address] [address] [facility], [place] [address]- Name: Kimberley Pittman RN Position: [facility] RN Member Role: Primary Care Nurse Name: Darlene Rodrigez RN Position: [facility] RN Member Role: Primary Care Nurse Name: Dixie Duke RN Position: [facility] RN Member Role: Primary Care Nurse Name: Kwan Mills RN Position: [facility] ED RN W/OE and Tasks Member Role: Primary Care Nurse Name: Ingrid Verdugo RN Position: [facility] RN Member Role: Primary Care Nurse Name: Monica Rowell RN Position: [facility] RN Member Role: Primary Care Nurse Name: Jimi Fitzpatrick RN Position: [facility] RN Member Role: Primary Care Nurse Care Team Related Persons Name: RAULITO MARLEN Address: home [address], [place] Name: CAWU MARLEN Address: home [address] [place], [place] Name: NICK CABEZAS Name: MOSES CABEZASRICK Address: home [address] [place] [address] Name: ELTON CHENG Address: home [address] [place] [id number] Name: LAURO QUEVEDO
--- OUTSIDE RECORDS SUMMARY | 2023-12-15 20:46 | XMS_ITS | Continuity of Care Document ---
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 Name Role Phone Jany Baig DO Primary Care Physician Encounter [facility] Date(s): 03/25/23 - 04/24/23 [facility] [address] [place], [place] [address] Allergies, Adverse Reactions, Alerts Substance [...] acel (oldterm) 08/02/12 Give n 1Result Comment: [facility]: [id number] 2Result Comment: [04/29/2017] [id number] 3Admin Note: FLUARIX 4Admin Note: 3 RDINJ 5Admin Note: #2 Medications acamprosate 333 mg oral delayed release tablet 1 tablet = 333 mg, By Mouth, 3 times a day, # 42 tablet, 4 Refills, Maintenance, 11/05/22 11:31:00 EDT, EC Tablet, [facility], Partial fill upon patient request if the prescription is for a schedule II opioid drug., 175, cm, 11/05/22 10:21:00... Start Date: 11/05/22 Stop Date: 01/14/23 Status: Ordered amLODIPine 5 mg oral tablet 1 tablet, By Mouth, Daily, ^1R1., # 30 tablet, 5 Refills, Maintenance, 12/22/22 7:20:00 EDT, [facility], 175, cm, 12/03/22 11:50:00 EDT, Height, 88.9, kg, 10/21/22 20:41:00 EDT, Dry Weight Start Date: 12/22/22 Status: Ordered baclofen 10 mg oral tablet See Instructions, TAKE ONE TABLET BY MOUTH THREE TIMES A DAY ^1R1,1R2,1R4, # 90 tablet, Refills 5, Tot. Refills 5, Maintenance, 01/14/23 17:55:00 EDT, Instructions Replace Required Details, Route to Pharmacy Electronically, [facility], 175, cm... Start Date: 01/14/23 Status: Ordered calcium (as carbonate)-vitamin D 500 mg-400 intl units oral tablet 1 tablet, By Mouth, Daily, ^1R1., # 28 tablet, 0 Refills, Maintenance, 12/01/22 16:12:00 EDT, [facility], 28, 1 tablet By Mouth Daily,Instr:^1R1., [...] capsule, 6 Refills, Maintenance, 12/03/22 12:13:00 EDT, [facility], 175, cm, 12/03/22 11:50:00 EDT, Height, [...] Gm, 12 Refills, Maintenance, 03/24/23 10:52:00 EDT, [facility], 28, APPLY TOPICALLY TO AFFECTED AREA(S) [...] 05/03/23 12:01:00 EST, 03/22/23 12:01:00 EDT, Tablet, [facility][id number], Partial fill upon patient request if [...] Gm, 11 Refills, Maintenance, 08/07/22 12:12:00 EST, [facility]/pharmacy #[id number], 30, USE 1 SPRAY(S) INTO EACH NOSTRIL TWICE A DAY, 176, cm,08/07/22 11:37:00 EST, Height, 79.8, kg, 07/31/22 2... Start Date: 08/07/22 Status: Ordered folic acid 1 mg oral tablet 1, tablet, By Mouth, Daily, ^1R1., # 30 tablet, Refills 5, Maintenance, 03/20/23 16:22:00 EDT, [facility], 175, cm, 03/20/23 15:31:00 EDT, Height, 77.5, kg, 03/20/23 11:30:00 EDT, Dry Weight Start Date: 03/20/23 Status: Ordered furosemide 20 mg oral tablet 20 mg, 1, tablet, By Mouth, Every other day, # 30 tablet, Refills 3, Tot. Refills 3, Maintenance, 01/28/23 12:31:00 EDT, Route to Pharmacy Electronically, [facility], Partial fill upon patient request if the prescription is for a schedule II o... Start Date: 01/28/23 Status: Ordered gabapentin 300 mg oral capsule 300 mg, 1, capsule, By Mouth, Daily at bedtime, note dose/frequency change, # 90 capsule, Refills 4, Tot. Refills 4, Maintenance, 11/05/22 11:05:00 EDT, [facility], 175, cm, 11/05/22 10:21:00 EDT, Height, 88.9... Start Date: 11/05/22 Stop Date: 01/29/24 Status: Ordered hydrOXYzine hydrochloride 10 mg oral tablet 2 tablet, By Mouth, 2 times a day, PRN NEEDED FOR ANXIETY (VIAL), # 30 tablet, 3 Refills, Maintenance, 04/16/23 16:41:00 EDT, [facility], 175, cm, 03/22/23 6:50:00 EDT, Height, 77.5, kg, 03/20/23 11:30:00 EDT, Dry Weight Start Date: 04/16/23 Status: Ordered lactulose 10 gm/15 ml oral syrup 15 mL, By Mouth, 2 times a day, # 120 mL, 6 Refills, Maintenance, 02/26/23 10:11:00 EDT, [facility], 4, TAKE 15ML BY MOUTH TWO TIMES A DAY, 175, cm, 12/03/22 11:50:00 EDT, Height, 84, kg, 02/12/23 11:30:00 EDT, Dry Weight Start Date: 02/26/23 Status: Ordered magnesium oxide 400 mg oral tablet See Instructions, TAKE 1 TABLET BY MOUTH TWICE A DAY^1R1,1R4, # 60 tablet, 11 Refills, Maintenance,01/28/23 12:31:00 EDT, [facility], 175, cm, 12/03/22 11:50:00 EDT, Height, 88.9, kg, 10/21/22 20:41:00 EDT, Dry Weight Start Date: 01/28/23 Status: Ordered Melatonin 3 mg oral tablet 1 tablet, By Mouth, Daily at bedtime, PRN NEEDED FOR INSOMNIA (PACKAGE IN TRAY)^1R4, # 60 tablet, 5 Refills, Maintenance, 04/16/23 16:41:00 EDT, [facility], 60, TAKE 1 TABLET BY [...] 02/26/23 10:11:00 EDT, Route to Pharmacy Electronically, [facility], 175, cm, 12/03/22 11:50:00 EDT, [...] 05/03/23 12:02:00 EST, 03/22/23 12:02:00 EDT, Capsule, [facility]/pharmacy #[id number], Partial fill upon patient request if the prescription is for a schedule II opioid drug., 175, c... Start Date: 03/22/23 Stop Date: 05/03/23 Status: Ordered spironolactone 25 mg oral tablet 1, tablet, By Mouth, Daily, ^1R2., # 30 tablet, Refills 5, Tot. Refills 5, Maintenance, 04/14/23 12:41:00 EDT, Route to Pharmacy Electronically, [facility], 175, cm, 03/22/23 6:50:00 EDT, Height, 77.5, kg, 03/20/23 11:30:00 EDT, Dry Weight Start Date: 04/14/23 Status: Ordered Tab-A-Jesse oral tablet 1 tablet, By Mouth, Daily, # 90 tablet, 1 Refills, 12/01/22 12:59:00 EDT, [facility], 28, 1tablet By Mouth Daily, 175, cm, 11/13/22 10:42:00 EDT, Height, 88.9, kg, 10/21/22 20:41:00 EDT, DryWeight Start Date: 12/01/22 Status: Ordered traZODone 50 mg oral tablet 2, tablet, By Mouth, Daily at bedtime, ^2R4., # 60 tablet, Refills 5, Maintenance, 02/26/23 10:11:00 EDT, Route to Pharmacy Electronically, [facility], 175, cm, 12/03/22 11:50:00 EDT, Height,84, [...] 02/09/23 23:18:00 EDT, Route to Pharmacy Electronically, [facility], 175, cm, 12/03/22 11:50:00 EDT, Height, 88.9, kg, 10/21/22 20:41:00 EDT, Dry Weight Start Date: 02/09/23 Status: Ordered Vitamin B6 50 mg oral tablet 1, tablet, By Mouth, Daily, R1., # 90 tablet, Refills 4, Maintenance, 11/16/22 13:39:00 EDT, Route to Pharmacy Electronically, [facility], 175, cm, 11/13/22 10:42:00 EDT, [...] tablet, 3 Refills, Maintenance, 02/26/23 10:11:00 EDT, [facility], 175, cm, 12/03/22 11:50:00 EDT, [...] Team Personnel Name: Alexandra Colmenares RN [facility] Care Nurse Name: Mary Suazo RN Position: [facility] RN Member Role: Primary Care Nurse Name: Andres Pressley RN Position: [facility] RN Member Role: Primary Care Nurse Name: Jany Baig DO Position: [facility] Physician - Primary Care Member Role: PCP Address: Address: [address] [place] [address] [facility] [address] Name: Kaye Payne RN Position: [facility] RN Member Role: Primary Care Nurse Name: Garima Hutchinson Position: [facility] RN Member Role: Primary Care Nurse Name: Malgorzata Austin Position: [facility] RN Member [...] Role: Lifetime Consulting Provider Address: Address: [address] [place] [address]- Name: Paige Nascimento RN Position: [facility] RN Member Role: Primary Care Nurse Name: Ge Covarrubias RN Position: [facility] RN Member Role: Primary Care Nurse Name: Orin Elmore RN Position: [facility] ED RN W/OE and Tasks Member Role: Primary Care Nurse Name: Allegra Liu RN Position: [facility] SN RN Member Role: Primary Care Nurse Name: Shayan Pandya MD Position: [facility] Renal MD Member Role: Lifetime Consulting Physician Address: Address: [address] [place] [address] [address] [facility] [place] [address]- Name: Darlene Rodrigez RN Position: [facility] RN Member Role: Primary Care Nurse Name: Dolores Can RN Position: [facility] RN [...] Related Persons Name: MARLEN CABEZAS Address: [address] [place] [id number] Name: MARLEN CABEZAS Address: home [address] [place] [id number] Name: NICK CABEZAS Name: CAWUGEMA Address: home [address] [place] [id number]
--- OUTSIDE RECORDS SUMMARY | 2023-12-15 20:46 | XMS_ITS | Continuity of Care Document ---
Author Organization [facility] Address [address] [place] [address]- Care Team Providers Care Medical Data Entry Clerk Name Role Phone Jany Baig DO Primary Care Physician ( [phone] Encounter [facility] [place] Date(s): 09/24/23 - 10/01/23 [facility] [address] [place], [place] [address] Encounter Diagnosis Alcoholic hepatitis, cirrhosis(Discharge Diagnosis) - 09/24/23 Esophageal varices s/p TIPS(Discharge Diagnosis) - 09/24/23 History of substance abuse(Discharge Diagnosis) - 09/24/23 History of encephalopathy(Discharge Diagnosis) - 09/24/23 Sherie's Optic neuropathy(Discharge Diagnosis) - 09/24/23 Postoperative wound infection of right hip(Discharge Diagnosis) - 09/24/23 Attending Physician: Heron Carranza MD Allergies, Adverse Reactions, Alerts Substance Reaction [...] 02/25/18 Nikhil rded influenza virus vaccine, inactivated 9/1/18 Nikhil rded influenza virus vaccine, inactivated 2 [...] acel (oldterm) 08/02/12 Give n 1Result Comment: [facility]: [id number] 2Result Comment: [04/29/2017] [id number] 3Admin Note: FLUARIX 4Admin Note: 3 RDINJ 5Admin Note: #2 Medications acamprosate 333 mg oral delayed release tablet 2 tablet = 666 mg, By Mouth, 3 times a day, # 180 tablet, 1 Refills, Maintenance, 07/28/23 11:04:00EST, EC Tablet, [facility], Partial fill upon patient request if [...] tablet, 2 Refills, Maintenance, 07/28/23 11:06:00 EST, [facility], 175, cm, 07/28/23 9:11:00 EST, Height, 61.3, kg, 07/12/23 23:27:00 EST, Dry Weight Start Date: 07/28/23 Status: Ordered amLODIPine 5 mg oral tablet 1 tablet, By Mouth, Daily, ^1R1., # 30 tablet, 2 Refills, Maintenance, 06/02/23 8:00:00 EST, [facility], 175, cm, 03/22/23 6:50:00 EDT, [...] 07/28/23 11:10:00 EST, Route to Pharmacy Electronically, [facility], Partial fill upon patient request if [...] Gm, 12 Refills, Maintenance, 07/28/23 11:06:00 EST, [facility], 28, APPLY TOPICALLY TO AFFECTED AREA(S) [...] Gm, 1 Refills, Maintenance, 07/28/23 12:07:00 EST, [facility], 30, USE 1 SPRAY(S) INTO EACH [...] 07/28/23 12:08:00 EST, Route to Pharmacy Electronically, [facility], 175, cm, 07/28/23 9:11:00 EST, Height, 61.3, kg, 07/12/23 23:27:00 EST, Dry Weight Start Date: 07/28/23 Status: Ordered furosemide 20 mg oral tablet 20 mg, 1, tablet, By Mouth, Every other day, # 30 tablet, Refills 1, Tot. Refills 1, Maintenance, 07/28/23 12:08:00 EST, Route to Pharmacy Electronically, [facility], Partial fill upon patient request if the prescription is for a schedule II... Start Date: 07/28/23 Status: Ordered gabapentin 300 mg oral capsule 300 mg, 1, capsule, By Mouth, Daily at bedtime, note dose/frequency change, # 30 capsule, Refills 1, Tot. Refills 1, Maintenance, 07/28/23 12:09:00 EST, Route to Pharmacy Electronically, [facility], 175, cm, 07/28/23 9:11:00 EST, Height, [...] tablet, 3 Refills, Maintenance, 07/28/23 12:10:00 EST, [facility], 175, cm, 07/28/23 9:11:00 EST, Height, 61.3, kg,07/12/23 23:27:00 EST, Dry Weight Start Date: 07/28/23 Status: Ordered lactulose 10 gm/15 ml oral syrup 30 mL = 20 Gm, By Mouth, 3 times a day, for 30 days, # 2,700 mL, 2 Refills, Acute 10/26/23 12:13:00EDT, 07/28/23 12:13:00 EST, Syrup, [facility], Partial fill upon patient request if [...] 60 tablet, 11 Refills, Maintenance,07/28/23 12:09:00 EST, [facility], 175, cm, 07/28/23 9:11:00 EST, Height, [...] tablet, 5 Refills, Maintenance, 07/28/23 12:09:00 EST, [facility], 60, 1 tablet By Mouth Daily [...] 09/29/24 19:11:00 EDT, 09/30/23 19:11:00 EDT, Gum, [facility], Partial fill upon patient request if [...] 07/28/23 12:11:00 EST, Route to Pharmacy Electronically, [facility], 175, cm, 07/28/23 9:11:00EST, Height, 61.3, kg, [...] 07/28/23 12:12:00 EST, Route to Pharmacy Electronically, [facility], 175, cm, 07/28/23 9:11:00 EST, Height, 61.3, kg, 07/12/23 23:27:00 EST, Dry Weight Start Date: 07/28/23 Status: Ordered spironolactone 25 mg oral tablet 1, tablet, By Mouth, Daily, ^1R2., # 30 tablet, Refills 5, Tot. Refills 5, Maintenance, 04/14/23 12:41:00 EDT, Route to Pharmacy Electronically, [facility], 175, cm, 03/22/23 6:50:00 EDT, Height, 77.5, kg, 03/20/23 11:30:00 EDT, Dry Weight Start Date: 04/14/23 Status: Ordered Tab-A-Jesse oral tablet 1 tablet, By Mouth, Daily, R1., # 30 tablet, 5 Refills, Maintenance, 05/06/23 19:16:00 EST, [facility], 30, TAKE 1 TABLET BY [...] 02/26/23 10:11:00 EDT, Route to Pharmacy Electronically, [facility], 175, cm, 12/03/22 11:50:00 EDT, Height,84, kg, 02/12/23 11:30:00 EDT, Dry Weight Start Date: 02/26/23 Status: Ordered traZODone 50 mg oral tablet 50 mg, 1, tablet, By Mouth, Daily at bedtime, ^2R4., # 60 tablet, Refills 5, Tot. Refills 5, Maintenance, 07/28/23 12:12:00 EST, Route to Pharmacy Electronically, [facility], 175, cm, 07/28/23 9:11:00 EST, Height, [...] EDT, Route to Pharmacy Electronically, [facility], 175, cm, 12/03/22 11:50:00 EDT, Height, 88.9, kg, 10/21/22 20:41:00 EDT, Dry Weight Start Date: 02/09/23 Status: Ordered Vitamin B1 100 mg oral tablet 1, tablet, By Mouth, Daily, # 90 tablet, Refills 3, Tot. Refills 3, Maintenance, 07/28/23 12:12:00 EST, Route to Pharmacy Electronically, [facility], 175, cm, 07/28/23 9:11:00 EST, Height, 61.3, kg, 07/12/23 23:27:00 EST, Dry Weight Start Date: 07/28/23 Status: Ordered Vitamin B6 50 mg oral tablet 1, tablet, By Mouth, Daily, R1., # 90 tablet, Refills 4, Maintenance, 11/16/22 13:39:00 EDT, Route to Pharmacy Electronically, [facility], 175, cm, 11/13/22 10:42:00 EDT, Height, 88.9, kg, 10/21/22 20:41:00 EDT, Dry Weight Start Date: 11/16/22 Status: Ordered Vitamin B6 50 mg oral tablet 1, tablet, By Mouth, Daily, R1., # 90 tablet, Refills 4, Tot. Refills 4, Maintenance, 07/28/23 12:11:00 EST, Route to Pharmacy Electronically, [facility], 175, cm, 07/28/23 9:11:00 EST, Height, [...] each, 5 Refills, Maintenance, 09/30/23 19:11:00 EDT, [facility], 175, cm, 09/24/23 11:09:00 EDT, Height, [...] homocyseine 9legally blind;hereditary 10normal echo November 2014 Diagnosis Diagnosis Type Effective Dates Health Status Clinical Service Informant Alcoholic hepatitis, cirrhosis Discharge Diagnosis 09/24/23 Esophageal varices s/p TIPS Discharge Diagnosis 09/24/23 History of substance abuse Discharge Diagnosis 09/24/23 History of encephalopathy Discharge Diagnosis 09/24/23 Sherie's Optic neuropathy Discharge Diagnosis 09/24/23 Postoperative wound infection of right hip Discharge Diagnosis 09/24/23 Vital Signs Most recent to oldest [Reference Range]: 1 Height 175 cm (09/24/23 11:09 AM) Weight 81.8 kg (09/24/23 11:09 AM) Oxygen Saturation [94-100 %] 96 % (09/24/23 11:09 AM) Pulse Rate [55-90 bpm] 96 bpm *H* (09/24/23 11:09 AM) Body Mass Index [18.5-24.99 kg/m2] 26.71 kg/m2 *H* (09/24/23 11:09 AM) Blood Pressure [90-138/55-84 mm Hg] 114/ 71mm Hg (09/24/23 11:09 AM) Mode of Delivery (Oxygen) Room air (09/24/23 11:09 AM) Blood pressure sites Arm, left (09/24/23 11:09 AM) Dry Weight 81.8 kg (09/24/23 11:09 AM) Weight Obtained Via Standing scale (09/24/23 11:09 AM) Dry Weight Obtained Via Standing scale (09/24/23 11:09 AM) Social History Social History Type Response Smoking Status 10 or more cigarette s (1/2 pack or more)/day in last 30 days entered on: 02/04/19 Sex Note * Sapna Turner: PERFORM, SIGN, VERIFY Event Display: Patient Education/Instruction Authored Date: [id number] [facility] *[facility] Clinical Summary Name GEMA CABEZAS Age 48 Years 1975 PCP Jany Baig DO PCP [facility]# [id number] Visit Date 09/24/2023 10:37:00 Patient Instructions continue current medication, supplements, diet, and cautious activity; continue wound care right hip, keep appointment with orthopedics; avoid any alcohol use; call if any question or problem Additional Instructions: Scheduled Appointments?? Future Appointments ?No Future Appointments Scheduled Follow-Up Instructions ?? Diagnosis Medications: Please continue your medications until treatment is completed or stopped by your provider. Discuss any questions related to medications with your provider. New Medications - Nicotine (Nicotine 2 mg gum) 1 Each Chew every 2 hours as needed as needed for smoking cessation. Refills: 1. Next Dose: Medications to Continue Taking That Have Changed These medications were not printed or sent to your pharmacy - Trazodone (traZODone 50 mg oral tablet) 2 tab(s) Oral Daily at Bedtime. ^2R4.. Refills: 5. Next Dose: - Trazodone (traZODone 50 mg oral tablet) 1 tab(s) Oral Daily at Bedtime. ^2R4.. Refills: 5. Next Dose: Medications to Continue with No Changes - Rifaximin (Xifaxan 550 mg oral tablet) 1 tablet By Mouth 2 times a day. Refills: 5. Next Dose: These medications were not printed or sent to your pharmacy Acamprosate (acamprosate 333 mg oral delayed release tablet) 2 tab(s) Oral 3 times a day. Next Dose: Acamprosate (acamprosate 333 mg oral delayed release tablet) 2 tab(s) Oral 3 times a day for 30 Days. Refills: 1. Next Dose: Amlodipine (amLODIPine 5 mg oral tablet) 1 tab(s) Oral Daily. ^1R1.. Refills: 2. Next Dose: Amlodipine (amLODIPine 5 mg oral tablet) 1 tab(s) Oral Daily. ^1R1.. Refills: 2. Next Dose: Baclofen (baclofen 10 mg oral tablet) 1 tab(s) Oral 3 times a day. Refills: 2. Next Dose: Baclofen (baclofen 10 mg oral tablet) 1 tab(s) Oral 3 times a day. Next Dose: Calcium And Vitamin D Combination (calcium (as carbonate)-vitamin D 500 mg-400 intl units oral tablet) 1 tab(s) Oral Daily. Next Dose: Diclofenac Topical (diclofenac 1% topical gel) APPLY TOPICALLY TO AFFECTED AREA(S) FOUR TIMES A DAYAS NEEDED FOR PAIN (BULK). Refills: 12. Next Dose: Diclofenac Topical (Voltaren Arthritis Pain 1% topical gel) 1 sydnie Topically 4 times a day. Next Dose: Durable Medical Equipment (Compression Stockings) surgical, calf length 20-30 mm Hg M79.89 M79.606. Refills: 2. Next Dose: Durable Medical Equipment (Cotton gauze roll 4 inches x 12 feet) Cotton gauze roll 4 inches x 12 feet Use for wound care, delayed wound Right hip. T14.8XXD. Refills: 1. Next Dose: Durable Medical Equipment (Diapers) Aduld Adjustable Pullups Sz L/XL use 6 daily per 6 wk period RAFI 99 mo n39.48. Refills: 11. Next Dose: Durable Medical Equipment (Disposable Underpads n39.498) 2 daily per 6 wk period. Refills: 11. Next Dose: Durable Medical Equipment (Gauze Pad (4 X 4)) Use for wound care, delayed wound Right hip. T14.8XXD. Refills: 1. Next Dose: Durable Medical Equipment (R aircast ankle-stirrup support brace) Dx: R inversion ankle sprain s93.409a. Refills: 0. Next Dose: Durable Medical Equipment (Tape (1 -Plastic)) Use for wound care, delayed wound Right hip. T14.8XXD. Refills: 1. Next Dose: Durable Medical Equipment (Urinal) Dx: Cirrhoisis, ambulatory dysfunction, incontinency. Refills: 3. Next Dose: Durable Medical Equipment (Walker) 2 wheeled Walker. Dx: Falls, gait abnormality. Refills: 0. Next Dose: Durable Medical Equipment (Walker) replacement for broken item; Use as needed. Refills: 0. Next Dose: Emollients, Topical (Eucerin Eczema Relief topical cream) 1 sydnie Topically twice a day. Next Dose: Fluticasone Nasal (Flonase Allergy Relief 50 mcg/inh nasal spray) 1 spray(s) Nares, Both twice a day. Next Dose: Fluticasone Nasal (fluticasone 50 mcg/inh nasal spray) USE 1 SPRAY(S) INTO EACH NOSTRIL TWICE A DAY. Refills: 1. Next Dose: Folic Acid (folic acid 1 mg oral tablet) 1 tab(s) Oral Daily. ^1R1.. Refills: 5. Next Dose: Folic Acid (folic acid 1 mg oral tablet) 1 tab(s) Oral Daily. Next Dose: Furosemide (furosemide 20 mg oral tablet) 1 tab(s) Oral every other day. Refills: 1. Next Dose: Furosemide (Lasix 20 mg oral tablet) 1 tab(s) Oral every other day. Next Dose: Gabapentin (gabapentin 300 mg oral capsule) 1 capsule Oral Daily at Bedtime. note dose/frequency change. Refills: 1. Next Dose: Gabapentin (Neurontin 300 mg oral capsule) 1 capsule Oral Daily at Bedtime. Next Dose: HydrOXYzine (hydrOXYzine hydrochloride 10 mg oral tablet) 2 tab(s) Oral twice a day as needed NEEDED FOR ANXIETY (VIAL). Refills: 3. Next Dose: HydrOXYzine (hydrOXYzine hydrochloride 10 mg oral tablet) 2 tab(s) Oral twice a day as needed as needed for anxiety. Next Dose: Lactulose (lactulose 10 gm/15 ml oral syrup) 30 Milliliter Oral 3 times a day for 30 Days. Refills:2. Next Dose: Magnesium Oxide (Mag-Ox 400 400 mg oral tablet) 1 tab(s) Oral twice a day. Next Dose: Magnesium Oxide (magnesium oxide 400 mg oral tablet) TAKE 1 TABLET BY MOUTH TWICE A DAY^1R1,1R4. Refills: 11. Next Dose: Melatonin (melatonin 3 mg oral tablet) 1 tab(s) Oral Daily at Bedtime as needed as needed for insomnia. Next Dose: Melatonin (Melatonin 3 mg oral tablet) 1 tab(s) Oral Daily at Bedtime as needed NEEDED FOR INSOMNIA (PACKAGE IN TRAY)^1R4. Refills: 5. Next Dose: Miscellaneous Rx (Calcium Carbonate-Vit D 500 mg/400IU) Take one tablet by mouth daily. Refills: 3. Next Dose: Multivitamin (Tab-A-Jesse oral tablet) 1 tab(s) Oral Daily. R1.. Refills: 5. Next Dose: Pantoprazole (pantoprazole 40 mg oral delayed release tablet) 1 tab(s) Oral Daily. ^1R1.. Refills: 5. Next Dose: Pantoprazole (pantoprazole 40 mg oral delayed release tablet) 1 tab(s) Oral Daily. ^1R1.. Refills: 5. Next Dose: Paroxetine (PARoxetine 10 mg oral tablet) 2 tab(s) Oral Daily. ^1R1.. Refills: 5. Next Dose: Paroxetine (Paxil 20 mg oral tablet) 1 tab(s) Oral Daily. Next Dose: Pyridoxine (Vitamin B6 50 mg oral tablet) 1 tab(s) Oral Daily. R1.. Refills: 4. Next Dose: Pyridoxine (Vitamin B6 50 mg oral tablet) 1 tab(s) Oral Daily. R1.. Refills: 4. Next Dose: Rifaximin (Xifaxan 550 mg oral tablet) 1 tab(s) Oral 4 times a day. Next Dose: Sodium Chloride (Saljet Sterile 0.9% irrigation solution) Use for wound care, delayed wound Right hip. T14.8XXD. Refills: 3. Next Dose: Spironolactone (spironolactone 25 mg oral tablet) 1 tab(s) Oral Daily. ^1R2.. Refills: 5. Next Dose: Spironolactone (spironolactone 25 mg oral tablet) 1 tab(s) Oral Daily. ^1R2.. Refills: 5. Next Dose: Thiamine (Vitamin B1 100 mg oral tablet) 1 tab(s) Oral Daily. Refills: 3. Next Dose: Thiamine (Vitamin B1 100 mg oral tablet) 1 tab(s) Oral Daily. Refills: 3. Next Dose: Allergy Info:?? NSAIDs; Tylenol; aspirin; ibuprofen Medications Given This Visit Future Orders ?No future orders Future Orders ?No future orders Vital Signs Height 175 cm Weight 81.8 kg BMI 26.71 kg/m2 Blood Pressure 114 mm Hg/71 mm Hg Temperature Pulse Rate 96 bpm Respiratory Rate 02 Sat Mode of Delivery 96 %/Room air You can now view a summary of your hospital visit from the comfort of your home through a free online portal called [employer]. [employer] is a website that allows you to securely view your medical information including discharge summary, medications and follow-up visits. ??You can alsosend a secure electronic message to your doctor???s office to request appointments, renew medications or just ask a question. You can enroll at [email or web address] or register during your next office visit. Disclaimer:?? The information provided is of a general nature and is intended to be used in conjunction with the recommendations and advice of your health care practitioner. ??Every effort has been made to ensure that the information provided is accurate and complete at the time it is provided to you however, as your needs change, or, as new ??information becomes available, different or additional instructions may be required. If you have questions, please consult with your primary care provider or pharmacist, as appropriate. ??This information is not intended to serve as substitution for assessment and evaluation by a qualified health care provider. If you do not have a primary care provider, you may find a [facility] provider by calling [facility] at [phone]. [facility], in keeping with [facility] guidance, no longer requires face masks for staff, patientsor visitors in most situations. Similar to time spent indoors at other locations, there is the chance that you were exposed to respiratory viruses during your time with us (such as flu or COVID-19).? If you develop symptoms concerning for a viral respiratory infection, please seek testing (and treatment if indicated) from your medical provider or home test kit. For information about the plan of care including goals and instructions for your diagnosis, please see the patient education orders section of this document. Patient Education Materials?? The content of this educational material or handout may have been modified, supplemented, or adapted from its original content and format to support your individualized medical care. Patient Care team information Care Team Personnel Name: Shira Galindo RN Position: [facility] RN Member Role: Primary Care Nurse Name: Lisa Nunez RN Position: S RN Member Role: Primary Care Nurse Name: Alexandra Colmenares RN Position: [facility] ED RN W/OE and Tasks Member Role: Primary Care Nurse Name: Garima Manzano RN Position: [facility] RN Member Role: Primary Care Nurse Name: Malgorzata Marinelli RN Position: [facility] RN Member Role: Primary Care Nurse Name: Joyce Roach RN Position: [facility] ED RN W/OE and Tasks Member Role: Primary Care Nurse Name: Mary Suazo RN Position: [facility] RN Member Role: Primary Care Nurse Name: Lucina Peralta RN Position: [facility] RN Member Role: Primary Care Nurse Name: Maria Esther Craig LPN Position: [facility] RN Member Role: Primary Care Nurse Name: Kaye Comer RN Position: [facility] RN Member Role: Primary Care Nurse Name: Andres Pressley RN Position: [facility] ED RN W/OE and Tasks Member Role: Primary Care Nurse Name: Jany Baig DO Position: [facility] Physician - Primary Care Member Role: PCP Address: Address: [address] [place] [address] [facility] [address] Name: Garima Curry RN Position: [facility] RN Member Role: Primary Care Nurse Name: Malgorzata Austin Position: [facility] RN Member Role: Primary Care Nurse Name: Ibeth Adams RN Position: [facility] RN Member Role: Primary Care Nurse Name: Torrie Hernandez RN Position: [facility] OB RN Member Role: Primary Care Nurse Name: Gretchen Knutson RN Position: [facility] SN RN Member Role: Primary Care Nurse Name: Aislinn Mckee RN Position: [facility] RN Member Role: Primary Care Nurse Name: Ashley Mcelroy Position: [facility] RN Member Role: Primary Care Nurse Name: Ashok Kevin RN Position: [facility] RN Member Role: Primary Care Nurse Name: Cody Garcia Position: [facility] Associate Professional Member Role: [employer] Provider Address: Address: [address] [place] [id number]- Name: Paige Nascimento RN Position: [facility] RN Member Role: Primary Care Nurse Name: Ge Covarrubias RN Position: [facility] RN Member Role: Primary Care Nurse Name: Orin Elmore RN Position: [facility] ED RN W/OE and Tasks Member Role: Primary Care Nurse Name: Allegra Liu RN Position: [facility] AMB Nurse Member Role: Primary Care Nurse Name: Shayan Pandya MD Position: [facility] Renal MD Member Role: [employer] Physician Address: Address: [address] [place] [address] [address] [facility] [place] [address]- Name: Kimberley Pittman RN Position: [facility] RN Member Role: Primary Care Nurse Name: Darlene Rodrigez RN Position: [facility] RN Member Role: Primary Care Nurse Name: Dixie Duke RN Position: [facility] RN Member Role: Primary Care Nurse Name: Kwan Mills RN Position: [facility] ED RN W/OE and Tasks Member Role: Primary Care Nurse Name: Ingrid Verdugo RN Position: [facility] RN Member Role: Primary Care Nurse Name: Monica Rowell RN Position: [facility] RN Member Role: Primary Care Nurse Name: Jimi Fitzpatrick RN Position: [facility] RN Member Role: Primary Care Nurse Care Team Related Persons Name: MARLEN CABEZAS Address: home [address] [place] [address] Name: MARLEN CABEZAS Address: [address] [place] [address] Name: NICK CABEZAS Name: GEMA CABEZAS Address: home [address] [place] [address] Name: ELTON CHENG Address: home [address] [place] [address]
--- OUTSIDE RECORDS SUMMARY | 2023-12-15 20:46 | XMS_ITS | Continuity of Care Document ---
Author Organization [facility] ter Address [address] [place] [address]- Care Team Providers Care Equine Vet Name Role Phone Jany Baig DO Primary Care Physician Encounter [facility] Date(s): 11/03/22 - 01/27/[address] [address]- Attending Physician: Cristofer Steiner MD Admitting Physician: [...] acel (oldterm) 08/02/12 Give n 1Result Comment: [facility]: [id number] 2Result Comment: [04/29/2017] [id number] 3Admin Note: FLUARIX 4Admin Note: 3 RDINJ 5Admin Note: #2 Medications acamprosate 333 mg oral delayed release tablet 1 tablet = 333 mg, By Mouth, 3 times a day, # 42 tablet, 4 Refills, Maintenance, 11/05/22 11:31:00 EDT, EC Tablet, [facility], Partial fill upon patient request if the prescription is for a schedule II opioid drug., 175, cm, 11/05/22 10:21:00... Start Date: 11/05/22 Stop Date: 01/14/23 Status: Ordered amLODIPine 5 mg oral tablet 1 tablet, By Mouth, Daily, ^1R1., # 30 tablet, 5 Refills, Maintenance, 12/22/22 7:20:00 EDT, [facility], 175, cm, 12/03/22 11:50:00 EDT, Height, 88.9, kg, 10/21/22 20:41:00 EDT, Dry Weight Start Date: 12/22/22 Status: Ordered baclofen 10 mg oral tablet See Instructions, TAKE ONE TABLET BY MOUTH THREE TIMES A DAY ^1R1,1R2,1R4, # 90 tablet, Refills 5, Tot. Refills 5, Maintenance, 01/14/23 17:55:00 EDT, Instructions Replace Required Details, Route to Pharmacy Electronically, [facility], 175, cm... Start Date: 01/14/23 Status: Ordered calcium (as carbonate)-vitamin D 500 mg-400 intl units oral tablet 1 tablet, By Mouth, Daily, ^1R1., # 28 tablet, 0 Refills, Maintenance, 12/01/22 16:12:00 EDT, [facility], 28, 1 tablet By Mouth Daily,Instr:^1R1., [...] capsule, 6 Refills, Maintenance, 12/03/22 12:13:00 EDT, [facility], 175, cm, 12/03/22 11:50:00 EDT, Height, [...] 1% topical gel See Instructions, APPLY TOPICALLY FOUR TIMES A DAY NEEDED FOR PAIN, # 100 Gm, 0 Refills, Maintenance, 12/22/22 16:58:00 EDT, [facility], 13, APPLY TOPICALLY FOUR TIMES A DAY NEEDED FOR PAIN, 175, cm, 12/03/22 11:50:00 EDT, Height, 88.9,... Start Date: 12/22/22 Status: Ordered Disposable Underpads n39.498 Disposable Underpads [...] Gm, 11 Refills, Maintenance, 08/07/22 12:12:00 EST, [facility]/pharmacy #[id number], 30, USE 1 SPRAY(S) INTO EACH NOSTRIL TWICE A DAY, 176, cm,08/07/22 11:37:00 EST, Height, 79.8, kg, 07/31/22 2... Start Date: 08/07/22 Status: Ordered folic acid 1 mg oral tablet 1, tablet, By Mouth, Daily, R1., # 30 tablet, Refills 5, Tot. Refills 5, Maintenance, 10/06/22 4:59:00 EDT, [facility], [facility], 176, cm, 09/07/22 8:56:00 EDT, Height, [...] 09/03/22 14:50:00 EDT, Route to Pharmacy Electronically, [facility], 169, cm, 09/03/22 14:21:00 EDT, Height, 69, kg, 08/16/22 1:04:00 EST, Dry Weight Start Date: 09/03/22 Status: Ordered gabapentin 300 mg oral capsule 300 mg, 1, capsule, By Mouth, Daily at bedtime, note dose/frequency change, # 90 capsule, Refills 4, Tot. Refills 4, Maintenance, 11/05/22 11:05:00 EDT, Route to Pharmacy Electronically, [facility], 175, cm, 11/05/22 10:21:00 EDT, Height, 88.9... Start Date: 11/05/22 Stop Date: 01/29/24 Status: Ordered hydrOXYzine hydrochloride 10 mg oral tablet 2 tablet, By Mouth, 2 times a day, PRN NEEDED FOR ANXIETY (VIAL), # 30 tablet, 3 Refills, Maintenance, 12/22/22 16:57:00 EDT, [facility], 175, cm, 12/03/22 11:50:00 EDT, Height, 88.9, kg, 10/21/22 20:41:00 EDT, Dry Weight Start Date: 12/22/22 Status: Ordered lactulose 10 gm/15 ml oral syrup 15 mL, By Mouth, 2 times a day, # 120 mL, 6 Refills, Maintenance, 09/22/22 12:15:00 EDT, [facility], 4, TAKE 15ML BY MOUTH TWO TIMES A DAY, 176, cm, 09/07/22 8:56:00 EDT, Height, 82.1, kg, 09/07/22 8:59:00 EDT, Dry Weight Start Date: 09/22/22 Status: Ordered Lidoderm 5% film 1 patch, Topically, Daily, remove patches after 12 hours NSAIDS contraindicated High dose tylenol contraindicated remove patches after 12 hours Nueropathy, # 30 patch, 5 Refills, Maintenance, 11/05/22 11:04:00 EDT, [facility], Partial klaudia... Start Date: 11/05/22 Status: Ordered Melatonin 3 mg oral tablet 1 tablet, By Mouth, Daily at bedtime, PRN NEEDED FOR INSOMNIA (PACKAGE IN TRAY)^1R4, # 60 tablet, 5 Refills, Maintenance, 06/12/22 18:11:00 EST, [facility], 60, TAKE 1 TABLET BY MOUTH [...] 09/03/22 14:53:00 EDT, Route to Pharmacy Electronically, [facility], Partial fill upon patient request if [...] 11/05/22 11:31:00 EDT, Route to Pharmacy Electronically, [facility], Partial fill upon patient request if the prescription is for a schedule II opioid drug... Start Date: 11/05/22 Status: Ordered Tab-A-Jesse oral tablet 1 tablet, By Mouth, Daily, # 90 tablet, 1 Refills, 12/01/22 12:59:00 EDT, [facility], 28, 1tablet By Mouth Daily, 175, cm, 11/13/22 10:42:00 EDT, Height, 88.9, kg, 10/21/22 20:41:00 EDT, DryWeight Start Date: 12/01/22 Status: Ordered traZODone 50 mg oral tablet 2 tablets, By Mouth, Daily at bedtime, # 60 each, Refills 5, Tot. Refills 5, Maintenance, 09/03/22 17:13:00 EDT, Route to Pharmacy Electronically, [facility], 169, cm, 09/03/22 14:21:00 EDT, Height, [...] 03/13/22 8:37:00 EDT, Route to Pharmacy Electronically, [facility], 175, cm, 01/06/22 10:34:00 EDT, Height, 78.3, kg, 12/26/2218:05:00 EDT, Dry Weight Start Date: 03/13/22 Status: Ordered Vitamin B6 50 mg oral tablet 1, tablet, By Mouth, Daily, R1., # 90 tablet, Refills 4, Maintenance, 11/16/22 13:39:00 EDT, Route to Pharmacy Electronically, [facility], 175, cm, 11/13/22 10:42:00 EDT, Height, [...] tablet, 3 Refills, Maintenance, 10/01/22 15:19:00 EDT, [facility], 176, cm, 09/07/22 8:56:00 EDT, Height, [...] Team Personnel Name: Alexandra Colmenares RN Position: [facility] ED RN W/OE and Tasks Member Role: Primary Care Nurse Name: Garima Manzano RN Position: [facility] RN Member Role: Primary Care Nurse Name: Malgorzata Marinelli RN Position: [facility] RN Member Role: Primary Care Nurse Name: Joyce Roach RN Position: [facility] RN Member Role: Primary Care Nurse Name: Mary Suazo RN Position: [facility] RN Member Role: Primary Care Nurse Name: Andres Pressley RN Position: [facility] RN Member Role: Primary Care Nurse Name: Jany Baig DO Position: [facility] Physician - Primary Care Member Role: PCP Address: Address: [address] [place] [address] Adult [facility] [place] [address]- Name: Neida Ballard RN Position: [facility] RN Member Role: Primary Care Nurse Name: Kaye Payne RN Position: [facility] RN Member Role: Primary Care Nurse Name: Garima Hutchinson Position: [facility] RN Member Role: Primary Care Nurse Name: Malgorzata Austin Position: [facility] RN Member Role: Primary Care Nurse Name: Ibeth Adams RN Position: [facility] RN Member Role: Primary Care Nurse Name: Torrie Hernandez RN Position: [facility] OB RN Member Role: Primary Care Nurse Name: Gretchen Knutson RN Position: [facility] SN RN Member Role: Primary Care Nurse Name: Aislinn Mckee RN Position: [facility] RN Member Role: Primary Care Nurse Name: Ashley Mcelroy Position: [facility] RN Member Role: Primary Care Nurse Name: Cody Garcia Position: [facility] Associate Professional Member Role: Lifetime Consulting Provider Address: Address: [address] [place] [address]- [place] Name: Ge Covarrubias RN Position: [facility] RN Member Role: Primary Care Nurse Name: Orin Elmore RN Position: [facility] ED RN W/OE and Tasks Member Role: Primary Care Nurse Name: Allegra Liu RN Position: [facility] SN RN Member Role: Primary Care Nurse Name: Shayan Pandya MD Position: [facility] Renal MD Member Role: Lifetime Consulting Physician Address: Address: [address] [facility] [address] [facility] [place] [address]- [place] Name: Darlene Rodrigez RN Position: [facility] RN Member Role: Primary Care Nurse Name: Kwan Mills RN Position: [facility] RN Member Role: Primary Care Nurse Name: Dolores Can RN Position: [facility] RN Member Role: Primary Care Nurse Name: Monica Rowell RN Position: [facility] RN Member Role: Primary Care Nurse Name: Jimi Fitzpatrick RN Position: [facility] RN Member Role: Primary Care Nurse Name: Cristofer Steiner MD Position: [facility] Physician - Gastroenterology Med Service: Gastroenterology Member Role: Referring Physician Address: Address: [address] [place] [address], [address] [facility] [place] [address]- Care Team Related Persons Name: MARLEN CABEZAS Address: home [address], [place] Name: MARLEN CABEZAS Address: home [address] [place], [place] Name: NICK CABEZAS Name: GEMA CABEZAS Address: home [address] [place], [place]
--- OUTSIDE RECORDS SUMMARY | 2023-12-15 20:46 | XMS_ITS | Continuity of Care Document ---
Author Organization [facility] Address [address] [place] [address]- Care Team Providers Care Jack Spinner Name Role Phone Jany Baig DO Primary Care Physician Encounter [facility] Date(s): 04/14/23 - 05/14/23 [facility] [address] [place] [address]- Allergies, Adverse Reactions, Alerts Substance Reaction Severity [...] acel (oldterm) 08/02/12 Give n 1Result Comment: [facility]: [id number] 2Result Comment: [04/29/2017] [id number] 3Admin Note: FLUARIX 4Admin Note: 3 RDINJ 5Admin Note: #2 Medications acamprosate 333 mg oral delayed release tablet 1 tablet = 333 mg, By Mouth, 3 times a day, # 42 tablet, 4 Refills, Maintenance, 11/05/22 11:31:00 EDT, EC Tablet, [facility], Partial fill upon patient request if the prescription is for a schedule II opioid drug., 175, cm, 11/05/22 10:21:00... Start Date: 11/05/22 Stop Date: 01/14/23 Status: Ordered amLODIPine 5 mg oral tablet 1 tablet, By Mouth, Daily, ^1R1., # 30 tablet, 5 Refills, Maintenance, 12/22/22 7:20:00 EDT, [facility], 175, cm, 12/03/22 11:50:00 EDT, Height, 88.9, kg, 10/21/22 20:41:00 EDT, Dry Weight Start Date: 12/22/22 Status: Ordered baclofen 10 mg oral tablet See Instructions, TAKE ONE TABLET BY MOUTH THREE TIMES A DAY ^1R1,1R2,1R4, # 90 tablet, Refills 5, Tot. Refills 5, Maintenance, 01/14/23 17:55:00 EDT, Instructions Replace Required Details, [facility], 175, cm... Start Date: 01/14/23 Status: Ordered calcium (as carbonate)-vitamin D 500 mg-400 intl units oral tablet 1 tablet, By Mouth, Daily, ^1R1., # 28 tablet, 0 Refills, Maintenance, 12/01/22 16:12:00 EDT, [facility], 28, 1 tablet By Mouth Daily,Instr:^1R1., [...] capsule, 6 Refills, Maintenance, 12/03/22 12:13:00 EDT, [facility], 175, cm, 12/03/22 11:50:00 EDT, Height, [...] Gm, 12 Refills, Maintenance, 03/24/23 10:52:00 EDT, [facility], 28, APPLY TOPICALLY TO AFFECTED AREA(S) [...] Gm, 11 Refills, Maintenance, 08/07/22 12:12:00 EST, [facility]/pharmacy #[id number], 30, USE 1 SPRAY(S) INTO EACH NOSTRIL TWICE A DAY, 176, cm,08/07/22 11:37:00 EST, Height, 79.8, kg, 07/31/22 2... Start Date: 08/07/22 Status: Ordered folic acid 1 mg oral tablet 1, tablet, By Mouth, Daily, ^1R1., # 30 tablet, Refills 5, Maintenance, 03/20/23 16:22:00 EDT, Route to Pharmacy Electronically, [facility], 175, cm, 03/20/23 15:31:00 EDT, Height, 77.5, kg, 03/20/23 11:30:00 EDT, Dry Weight Start Date: 03/20/23 Status: Ordered furosemide 20 mg oral tablet 20 mg, 1, tablet, By Mouth, Every other day, # 30 tablet, Refills 3, Tot. Refills 3, Maintenance, 01/28/23 12:31:00 EDT, Route to Pharmacy Electronically, [facility], Partial fill upon patient request if the prescription is for a schedule II o... Start Date: 01/28/23 Status: Ordered gabapentin 300 mg oral capsule 300 mg, 1, capsule, By Mouth, Daily at bedtime, note dose/frequency change, # 90 capsule, Refills 4, Tot. Refills 4, Maintenance, 11/05/22 11:05:00 EDT, Route to Pharmacy Electronically, [facility], 175, cm, 11/05/22 10:21:00 EDT, Height, 88.9... Start Date: 11/05/22 Stop Date: 01/29/24 Status: Ordered hydrOXYzine hydrochloride 10 mg oral tablet 2 tablet, By Mouth, 2 times a day, PRN NEEDED FOR ANXIETY (VIAL), # 30 tablet, 3 Refills, Maintenance, 04/16/23 16:41:00 EDT, [facility], 175, cm, 03/22/23 6:50:00 EDT, Height, 77.5, kg, 03/20/23 11:30:00 EDT, Dry Weight Start Date: 04/16/23 Status: Ordered lactulose 10 gm/15 ml oral syrup 15 mL, By Mouth, 2 times a day, # 120 mL, 6 Refills, Maintenance, 02/26/23 10:11:00 EDT, [facility], 4, TAKE 15ML BY MOUTH TWO TIMES A DAY, 175, cm, 12/03/22 11:50:00 EDT, Height, 84, kg, 02/12/23 11:30:00 EDT, Dry Weight Start Date: 02/26/23 Status: Ordered magnesium oxide 400 mg oral tablet See Instructions, TAKE 1 TABLET BY MOUTH TWICE A DAY^1R1,1R4, # 60 tablet, 11 Refills, Maintenance,01/28/23 12:31:00 EDT, [facility], 175, cm, 12/03/22 11:50:00 EDT, Height, 88.9, kg, 10/21/22 20:41:00 EDT, Dry Weight Start Date: 01/28/23 Status: Ordered Melatonin 3 mg oral tablet 1 tablet, By Mouth, Daily at bedtime, PRN NEEDED FOR INSOMNIA (PACKAGE IN TRAY)^1R4, # 60 tablet, 5 Refills, Maintenance, 04/16/23 16:41:00 EDT, [facility], 60, TAKE 1 TABLET BY MOUTH [...] 02/26/23 10:11:00 EDT, Route to Pharmacy Electronically, [facility], 175, cm, 12/03/22 11:50:00 EDT, Height, [...] 04/14/23 12:41:00 EDT, Route to Pharmacy Electronically, [facility], 175, cm, 03/22/23 6:50:00 EDT, Height, 77.5, kg, 03/20/23 11:30:00 EDT, Dry Weight Start Date: 04/14/23 Status: Ordered Tab-A-Jesse oral tablet 1 tablet, By Mouth, Daily, R1., # 30 tablet, 5 Refills, Maintenance, 05/06/23 19:16:00 EST, [facility], 30, TAKE 1 TABLET BY MOUTH ONCE A DAY^1R1, 175, cm, 03/22/23 6:50:00 EDT, Height, 77.5,kg, 03/20/23 11:30:00 EDT, Dry Weight Start Date: 05/06/23 Status: Ordered traZODone 50 mg oral tablet 2, tablet, By Mouth, Daily at bedtime, ^2R4., # 60 tablet, Refills 5, Maintenance, 02/26/23 10:11:00 EDT, [facility], 175, cm, 12/03/22 11:50:00 EDT, Height,84, [...] 02/09/23 23:18:00 EDT, Route to Pharmacy Electronically, [facility], 175, cm, 12/03/22 11:50:00 EDT, Height, 88.9, kg, 10/21/22 20:41:00 EDT, Dry Weight Start Date: 02/09/23 Status: Ordered Vitamin B6 50 mg oral tablet 1, tablet, By Mouth, Daily, R1., # 90 tablet, Refills 4, Maintenance, 11/16/22 13:39:00 EDT, Route to Pharmacy Electronically, [facility], 175, cm, 11/13/22 10:42:00 EDT, Height, [...] tablet, 3 Refills, Maintenance, 02/26/23 10:11:00 EDT, [facility], 175, cm, 12/03/22 11:50:00 EDT, Height, [...] Member Role: Primary Care Nurse Name: Joyce Raoch RN Position: [facility] [...] Care Member Role: PCP Address: Address: [address] [place] [address] Adult [facility] [place] [address]- Name: Kaye Payne RN [facility] Care Nurse Name: Ashok Kevin RN Position: [facility] RN Member Role: Primary Care Nurse Name: Cody Garcia Position: [facility] Associate Professional Member Role: Lifetime Consulting Provider Address: Address: [address] [place] [address]- Name: Paige Nascimento RN Position: [facility] RN Member Role: Primary Care Nurse Name: Ge Covarrubias RN Position: [facility] RN Member Role: Primary Care Nurse Name: Orin Elmore RN Position: [facility] ED RN W/OE and Tasks Member Role: Primary Care Nurse Name: Allegra Liu RN Position: [facility] AMB Nurse Member Role: Primary Care Nurse Name: Shayan Pandya MD Position: [facility] Renal MD Member Role: Lifetime Consulting Physician Address: Address: [address] [place] [address] [address] [facility] [place] [address]- Name: Darlene Rodrigez RN Position: S RN Member Role: Primary Care Nurse Name: Kwan Mills RN Position: S RN Member Role: Primary Care Nurse Name: Dolores Can RN Position: S RN Member Role: Primary Care Nurse Name: Ingrid Verdugo RN Position: S RN Member Role: Primary Care Nurse Name: Monica Rowell RN Position: [facility] RN Member Role: Primary Care Nurse Name: Jimi Fitzpatrick RN Position: [facility] RN Member Role: Primary Care Nurse Care Team Related Persons Name: MARLEN CABEZAS Address: [address] [address] Name: MARLEN CABEZAS Address: home [address] [place] [address] Name: NICK CABEZAS Name: GEMA CABEZAS Address: home [address] [place] [id number]
--- OUTSIDE RECORDS SUMMARY | 2023-12-15 20:46 | XMS_ITS | Continuity of Care Document ---
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 Role Phone Jany Baig DO Primary Care Physician ( [phone] Encounter [facility] Date(s): 10/23/23 - 12/09/[address] [address]- Attending Physician: Tobias Hernandez MD Admitting Physician: Tobias Hernandez MD Allergies, Adverse Reactions, Alerts Substance Reaction [...] acel (oldterm) 08/02/12 Give n 1Result Comment: [facility]: 57787-764-29 2Result Comment: [04/29/2017] [id number] 3Admin Note: FLUARIX 4Admin Note: 3 RDINJ 5Admin Note: #2 Medications acamprosate 333 mg oral delayed release tablet 2 tablet = 666 mg, By Mouth, 3 times a day, # 180 tablet, 1 Refills, Maintenance, 07/28/23 11:04:00EST, EC Tablet, [facility], Partial fill upon patient request if the prescription is for a schedule II opioid drug., 175, cm, 07/28/23 9:11:0... Start Date: 07/28/23 Stop Date: 09/26/23 Status: Ordered Acetaminophen = 650 mg, By Mouth, Every 4 hours, PRN as needed, 0 Refills, Maintenance, 11/05/23 12:49:00 EDT, Partial fill upon patient request if the prescription is for a schedule II opioid drug. Start Date: 11/05/23 Status: Ordered baclofen 10 mg oral tablet 10 mg, 1, tablet, By Mouth, 3 times a day, # 90 tablet, Refills 2, Tot. Refills 2, Maintenance, 07/28/23 11:10:00 EST, Route to Pharmacy Electronically, [facility], Partial fill upon patient request if the prescription is for a schedule II o... Start Date: 07/28/23 Status: Ordered calcium (as carbonate)-vitamin D 500 mg-400 intl units oral tablet 1 tablet, By Mouth, Daily, 0 Refills, Maintenance, 11/06/23 18:36:00 EDT, Partial fill upon patientrequest if the prescription is for a schedule II opioid drug. Start Date: 11/06/23 Status: Ordered Coenzyme Q10 100 mg oral capsule 2 capsule = 200 mg, By Mouth, Daily at bedtime, # 60 capsule, 0 Refills, Maintenance, 11/05/23 12:43:00 EDT, Capsule, Partial fill upon patient request if the prescription is for a schedule II opioiddrug. Start Date: 11/05/23 Status: Ordered Docusate = 100 mg, By Mouth, 2 times a day, 0 Refills, Maintenance, 11/05/23 12:47:00 EDT, Partial fill uponpatient request if the prescription is for a schedule II opioid drug. Start Date: 11/05/23 Status: Ordered Enoxaparin 0.4 mL = 40 mg, Subcutaneous Injection, Daily, At least 2 weeks. According to ambulation, 0 Refills, Maintenance, 11/17/23 13:03:00 EDT, Injection, Partial fill upon patient request if the prescription is for a schedule II opioid drug. Start Date: 11/17/23 Status: Ordered Fleet Enema 19 gm-7 gm rectal enema 1 each, Rectally, Daily, PRN for constipation, # 133 mL, 0 Refills, Maintenance, 11/05/23 12:51:00 EDT, Enema, Partial fill upon patient request if the prescription is for a schedule II opioid drug. Start Date: 11/05/23 Status: Ordered fluticasone 50 mcg/inh nasal spray 1 sprays = 50 mcg, Nares, Both, 2 times a day, 0 Refills, Maintenance, 11/06/23 18:54:00 EDT, Partial fill upon patient request if the prescription is for a schedule II opioid drug. Start Date: 11/06/23 Status: Ordered folic acid 1 mg oral [...] 07/28/23 12:08:00 EST, Route to Pharmacy Electronically, [facility], Partial fill upon patient request if the prescription is for a schedule II... Start Date: 07/28/23 Status: Ordered gabapentin 300 mg oral capsule 300 mg, 1, capsule, By Mouth, Daily at bedtime, note dose/frequency change, # 30 capsule, Refills 1, Tot. Refills 1, Maintenance, 07/28/23 12:09:00 EST, Route to Pharmacy Electronically, [facility], 175, cm, 07/28/23 9:11:00 EST, Height, 61.... Start Date: 07/28/23 Stop Date: 10/20/24 Status: Ordered hydrOXYzine hydrochloride 10 mg oral tablet 2 tablet = 20 mg, By Mouth, 2 times a day, PRN as needed for anxiety, 0 Refills, Maintenance, 11/06/23 18:38:00 EDT, Partial fill upon patient request if the prescription is for a schedule II opioid drug. Start Date: 11/06/23 Status: Ordered lactulose 10 gm/15 ml oral syrup 30 mL = 20 Gm, By Mouth, 3 times a day, # 480 mL, 0 Refills, Maintenance, 11/05/23 12:40:00 EDT, Syrup, Partial fill upon patient request if the prescription is for a schedule II opioid drug. Start Date: 11/05/23 Status: Ordered magnesium oxide 400 mg oral tablet 1 tablet = 400 mg, By Mouth, Daily, 0 Refills, Maintenance, 11/06/23 18:31:00 EDT, Partial fill upon patient request if the prescription is for a schedule II opioid drug. Start Date: 11/06/23 Status: Ordered melatonin 3 mg oral tablet 1 tablet = 3 mg, By Mouth, Daily at bedtime, 0 Refills, Maintenance, 11/06/23 18:32:00 EDT, Partialfill upon patient request if the prescription is for a schedule II opioid drug. Start Date: 11/06/23 Status: Ordered pantoprazole 40 mg oral delayed release tablet 1 tablet, By Mouth, Daily, ^1R1., # 30 tablet, 5 Refills, Maintenance, 07/28/23 12:12:00 EST, 175, cm, 07/28/23 9:11:00 EST, Height, 61.3, kg, 07/12/23 23:27:00 EST, Dry Weight Start Date: 07/28/23 Status: Ordered PARoxetine 20 mg oral tablet 20 mg, 1, tablet, By Mouth, Daily in AM, Refills 0, Maintenance, 11/06/23 18:37:00 EDT, Partial fill upon patient request if the prescription is for a schedule II opioid drug. Start Date: 11/06/23 Status: Ordered polyethylene glycol 3350 oral powder [...] opioid drug. Start Date: 11/05/23 Status: Ordered Tab-A-Jesse oral tablet 1 tablet, By Mouth, Daily, R1., # 30 tablet, 5 Refills, Maintenance, 05/06/23 19:16:00 EST, [facility], 30, TAKE 1 TABLET BY MOUTH ONCE A DAY^1R1, 175, cm, 03/22/23 6:50:00 EDT, Height, 77.5,kg, 03/20/23 11:30:00 EDT, Dry Weight Start Date: 05/06/23 Status: Ordered traZODone 100 mg oral tablet 100 mg, 1, tablet, By Mouth, Daily at bedtime, Refills 0, Maintenance, 11/06/23 18:33:00 EDT, Partial fill upon patient request if the prescription is for a schedule II opioid drug. Start Date: 11/06/23 Status: Ordered vancomycin 1.25 g intravenous injection = 1,500 mg, IVPB, Every 12 hours, 6 W from 11/08, 0 Refills, Maintenance, 11/17/23 12:51:00 EDT, Injection, Partial fill upon patient request if the prescription is for a schedule II opioid drug. Start Date: 11/17/23 Status: Ordered Vitamin B1 100 mg oral tablet 1, tablet, By Mouth, Daily, # 90 tablet, Refills 3, Tot. Refills 3, Maintenance, 07/28/23 12:12:00 EST, Route to Pharmacy Electronically, [facility], 175, cm, 07/28/23 9:11:00 EST, Height, 61.3, kg, 07/12/23 23:27:00 EST, Dry Weight Start Date: 07/28/23 Status: Ordered Vitamin B6 50 mg oral tablet 1, tablet, By Mouth, Daily, R1., # 90 tablet, Refills 4, Tot. Refills 4, Maintenance, 07/28/23 12:11:00 EST, Route to Pharmacy Electronically, [facility], 175, cm, 07/28/23 9:11:00 EST, Height, 61.3, kg, 07/12/23 23:27:00 EST, Dry Weight Start Date: 07/28/23 Status: Ordered Xifaxan 550 mg oral tablet See Instructions, 1 tablet By Mouth 2 times a day, # 60 each, 5 Refills, Maintenance, 09/30/23 19:11:00 EDT, [facility], 175, cm, 09/24/23 11:09:00 EDT, Height, [...] Active History of substance abuse Confirmed Active HTN (hypertension) Confirmed Active ED (erectile dysfunction) Confirmed Active [...] oldest [Reference Range]: 1 Height 185 cm (11/05/23 1:22 PM) Dry Weight 81.8 kg (11/05/23 1:22 PM) Social History Social History Type Response Smoking Status 10 or more cigarette s (1/2 pack or more)/day in last 30 days entered on: 02/04/19 Sex Patient Care team information Care Team Personnel Name: Shira Galindo RN Position: [facility] RN Member Role: Primary Care Nurse Name: Estela Martinez RN Position: S RN Member Role: Primary Care Nurse Name: Alexandra Colmenares RN Position: [facility] ED RN W/OE and Tasks Member Role: Primary Care Nurse Name: Garima Manzano RN Position: [facility] RN Member Role: Primary Care Nurse Name: Malgorzata Marinelli RN Position: [facility] RN Member Role: Primary Care Nurse Name: Joyce Roach RN Position: [facility] ED RN W/OE and Tasks Member Role: Primary Care Nurse Name: Lucina Peralta RN Position: [facility] RN Member Role: Primary Care Nurse Name: Jean Epstein RN Position: [facility] RN Member Role: Primary Care Nurse Name: Maria Esther Craig LPN Position: [facility] RN Member Role: Primary Care Nurse Name: Kaye Comer RN Position: [facility] RN Member Role: Primary Care Nurse Name: Kenyatta Kirby RN Position: [facility] RN Member Role: Primary Care Nurse Name: Andres Pressley RN Position: [facility] RN Member Role: Primary Care Nurse Name: Jany Baig DO Position: [facility] Physician - Primary Care Member Role: PCP Address: Address: [address] [place] [address] Adult [facility] [place] [address]- Name: Mary Haines RN Position: [facility] RN Member Role: Primary Care Nurse Name: Garima Curry RN Position: [facility] RN Member Role: Primary Care Nurse Name: Malgorzata Austin RN Position: [facility] RN Member Role: Primary Care Nurse Name: Ibeth Adams RN Position: [facility] RN Member Role: Primary Care Nurse Name: Torrie Hernandez RN Position: [facility] OB RN Member Role: Primary Care Nurse Name: Yoselin Jones RN Position: [facility] RN Member Role: Primary Care Nurse Name: Gretchen Knutson RN Position: [facility] SN RN Member Role: Primary Care Nurse Name: Aislinn Mckee RN Position: [facility] RN Member Role: Primary Care Nurse Name: Ashley Mcelroy RN Position: [facility] RN Member Role: Primary Care Nurse Name: Ashok Kevin RN Position: [facility] RN Member Role: Primary Care Nurse Name: Eben Villavicencio RN Position: [facility] RN Member Role: Primary Care Nurse Name: Cody Garcia Position: [facility] Associate Professional Member Role: Lifetime Consulting Provider Address: Address: [address] [place] [address]- Name: Paige Nascimento RN Position: [facility] RN Member Role: Primary Care Nurse Name: Sue Combs RN Position: [facility] RN Member Role: Primary Care Nurse Name: Ge Covarrubias RN Position: [facility] RN Member Role: Primary Care Nurse Name: Orin Elmore RN Position: [facility] ED RN W/OE and Tasks Member Role: Primary Care Nurse Name: Allegra Liu RN Position: [facility] AMB Nurse Member Role: Primary Care Nurse Name: Shayan Pandya MD Position: [facility] Renal MD Member Role: Lifetime Consulting Physician Address: Address: [address] [facility], [place] [address]- Name: Kimberley Pittman RN Position: [facility] RN Member Role: Primary Care Nurse Name: Darlene Rodrigez RN Position: [facility] RN Member Role: Primary Care Nurse Name: Alison Helton RN Position: [facility] RN Member Role: Primary Care Nurse Name: Dixie Duke RN Position: [facility] RN Member Role: Primary Care Nurse Name: Kwan Mills RN Position: [facility] ED RN W/OE and Tasks Member Role: Primary Care Nurse Name: Ingrid Verdugo RN Position: [facility] RN Member Role: Primary Care Nurse Name: Terra Fishman RN Position: [facility] RN Member Role: Primary Care Nurse Name: Monica Rowell RN Position: [facility] RN Member Role: Primary Care Nurse Name: Anita Hodges RN Position: [facility] RN Member Role: Primary Care Nurse Name: Jimi Fitzpatrick RN Position: [facility] RN Member Role: Primary Care Nurse Care Team Related Persons Name: MARLEN CABEZAS Address: [address] [place] [address] Name: MARLEN CABEZAS Address: [address] [place] [address] Name: NICK CABEZAS Name: GEMA CABEZAS Address: [address] [place] [address] Name: ELTON CHENG Address: [address] [place] [address] Name: LAURO QUEVEDO
--- OUTSIDE RECORDS SUMMARY | 2023-12-15 20:46 | XMS_ITS | Continuity of Care Document ---
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 Name Role Phone Jany Baig DO Primary Care Physician Encounter [facility] Date(s): 07/07/23 - 07/07/[address] [address] Attending Physician: Not on Staff, Attending MD [...] (oldterm) 08/02/12 Give n 1Result Comment: [facility]: [id number] 2Result Comment: [04/29/2017] [id number] 3Admin Note: FLUARIX 4Admin Note: 3 RDINJ 5Admin Note: #2 Medications acamprosate 333 mg oral delayed release tablet 1 tablet = 333 mg, By Mouth, 3 times a day, # 42 tablet, 4 Refills, Maintenance, 11/05/22 11:31:00 EDT, EC Tablet, [facility], Partial fill upon patient request if the prescription is for a schedule II opioid drug., 175, cm, 11/05/22 10:21:00... Start Date: 11/05/22 Stop Date: 01/14/23 Status: Ordered amLODIPine 5 mg oral tablet 1 tablet, By Mouth, Daily, ^1R1., # 30 tablet, 2 Refills, Maintenance, 06/02/23 8:00:00 EST, [facility], 175, cm, 03/22/23 6:50:00 EDT, Height, 77.5, kg, 03/20/23 11:30:00 EDT, Dry Weight Start Date: 06/02/23 Status: Ordered BACLOFEN 10MG TABS BACLOFEN 10MG TABS, See Instructions, # 90 tablet, 0 Refills, Maintenance, TAKE ONE TABLET BY MOUTHTHREE TIMES A DAY ^1R1,1R2,1R4, 06/08/23 14:55:00 EST, 175, cm, 03/22/23 6:50:00 EDT, Height, 77.5,kg, 03/20/23 11:30:00 EDT, Dry Weight Start Date: 06/08/23 Status: Ordered CALCIUM + D 500/400 TABS CALCIUM + D 500/400 TABS, 1, tablet, By Mouth, Daily, # 28 tablet, 11 Refills, Maintenance, ^1R2., 03/24/23 10:52:00 EDT, 175, cm, 03/22/23 6:50:00 EDT, Height, 77.5, kg, 03/20/23 11:30:00 EDT, Dry Weight Start Date: 03/24/23 Status: Ordered Compression Stockings See Instructions, # [...] Gm, 12 Refills, Maintenance, 03/24/23 10:52:00 EDT, [facility], 28, APPLY TOPICALLY TO AFFECTED AREA(S) [...] DAY, # 16 Gm, 1 Refills, Maintenance, 07/07/23 17:36:00 EST, [facility], 30, USE 1 SPRAY(S) INTO EACH NOSTRIL TWICE A DAY, 175, cm, 07/07/23 9:46:00 EST, Height, 80.6, kg, 07/07/23 9:1... Start Date: 07/07/23 Status: Ordered folic acid 1 mg oral tablet 1, tablet, By Mouth, Daily, ^1R1., # 30 tablet, Refills 5, Maintenance, 03/20/23 16:22:00 EDT, Route to Pharmacy Electronically, [facility], 175, cm, 03/20/23 15:31:00 EDT, Height, 77.5, kg, 03/20/23 11:30:00 EDT, Dry Weight Start Date: 03/20/23 Status: Ordered furosemide 20 mg oral tablet 20 mg, 1, tablet, By Mouth, Every other day, # 30 tablet, Refills 3, Tot. Refills 3, Maintenance, 01/28/23 12:31:00 EDT, Route to Pharmacy Electronically, [facility], Partial fill upon patient request if the prescription is for a schedule II o... Start Date: 01/28/23 Status: Ordered gabapentin 300 mg oral capsule 300 mg, 1, capsule, By Mouth, Daily at bedtime, note dose/frequency change, # 90 capsule, Refills 4, Tot. Refills 4, Maintenance, 11/05/22 11:05:00 EDT, Route to Pharmacy Electronically, [facility], 175, cm, 11/05/22 10:21:00 EDT, Height, 88.9... Start Date: 11/05/22 Stop Date: 01/29/24 Status: Ordered hydrOXYzine hydrochloride 10 mg oral tablet 2 tablet, By Mouth, 2 times a day, PRN NEEDED FOR ANXIETY (VIAL), # 30 tablet, 3 Refills, Maintenance, 04/16/23 16:41:00 EDT, [facility], 175, cm, 03/22/23 6:50:00 EDT, Height, 77.5, kg, 03/20/23 11:30:00 EDT, Dry Weight Start Date: 04/16/23 Status: Ordered lactulose 10 gm/15 ml oral syrup 15 mL, By Mouth, 2 times a day, # 120 mL, 6 Refills, Maintenance, 02/26/23 10:11:00 EDT, [facility], 4, TAKE 15ML BY MOUTH TWO TIMES A DAY, 175, cm, 12/03/22 11:50:00 EDT, Height, 84, kg, 02/12/23 11:30:00 EDT, Dry Weight Start Date: 02/26/23 Status: Ordered magnesium oxide 400 mg oral tablet See Instructions, TAKE 1 TABLET BY MOUTH TWICE A DAY^1R1,1R4, # 60 tablet, 11 Refills, Maintenance,01/28/23 12:31:00 EDT, [facility], 175, cm, 12/03/22 11:50:00 EDT, Height, 88.9, kg, 10/21/22 20:41:00 EDT, Dry Weight Start Date: 01/28/23 Status: Ordered Melatonin 3 mg oral tablet 1 tablet, By Mouth, Daily at bedtime, PRN NEEDED FOR INSOMNIA (PACKAGE IN TRAY)^1R4, # 60 tablet, 5 Refills, Maintenance, 04/16/23 16:41:00 EDT, [facility], 60, TAKE 1 TABLET BY [...] 2, tablet, By Mouth, Daily, ^1R1., # 28 tablet, Refills 5, Maintenance, 02/26/23 10:11:00 EDT, Route to Pharmacy Electronically, [facility], 175, cm, 12/03/22 11:50:00 EDT, Height, 84,kg, 02/12/23 11:30:00 EDT, Dry Weight Start Date: [...] 04/14/23 12:41:00 EDT, Route to Pharmacy Electronically, [facility], 175, cm, 03/22/23 6:50:00 EDT, Height, 77.5, kg, 03/20/23 11:30:00 EDT, Dry Weight Start Date: 04/14/23 Status: Ordered Tab-A-Jesse oral tablet 1 tablet, By Mouth, Daily, R1., # 30 tablet, 5 Refills, Maintenance, 05/06/23 19:16:00 EST, [facility], 30, TAKE 1 TABLET BY MOUTH ONCE A DAY^1R1, 175, cm, 03/22/23 6:50:00 EDT, Height, 77.5,kg, 03/20/23 11:30:00 EDT, Dry Weight Start Date: 05/06/23 Status: Ordered traZODone 50 mg oral tablet 2, tablet, By Mouth, Daily at bedtime, ^2R4., # 60 tablet, Refills 5, Maintenance, 02/26/23 10:11:00 EDT, Route to Pharmacy Electronically, [facility], 175, cm, 12/03/22 11:50:00 EDT, [...] 02/09/23 23:18:00 EDT, Route to Pharmacy Electronically, [facility], 175, cm, 12/03/22 11:50:00 EDT, Height, 88.9, kg, 10/21/22 20:41:00 EDT, Dry Weight Start Date: 02/09/23 Status: Ordered Vitamin B6 50 mg oral tablet 1, tablet, By Mouth, Daily, R1., # 90 tablet, Refills 4, Maintenance, 11/16/22 13:39:00 EDT, Route to Pharmacy Electronically, [facility], 175, cm, 11/13/22 10:42:00 EDT, Height, [...] tablet See Instructions, 1 tablet By Mouth 4 times a day, # 120 each, 1 Refills, Maintenance, 06/30/23 12:59:00 EST, [facility], 175, cm, 03/22/23 6:50:00 EDT, Height, 77.5, kg, 03/20/23 11:30:00 EDT, Dry Weight Start Date: 06/30/23 Status: Ordered Problem List Condition Confirmation Course [...] Joyce Roach RN Position: [facility] ED RN W/OE and Tasks Member Role: Primary Care Nurse Name: Mary Suazo RN Position: [facility] RN Member Role: Primary Care Nurse Name: Andres Pressley RN Position: [facility] ED RN W/OE and Tasks Member Role: Primary Care Nurse Name: Jany Baig DO Position: [facility] Physician - Primary Care Member Role: PCP Address: Address: [address] [place] [address] Adult & [place] [address]- Name: Kaye Payne RN Position: S RN Member Role: Primary Care Nurse Name: Garima Hutchinson Position: S RN Member Role: Primary Care Nurse Name: Malgorzata Austin Position: S RN Member Role: Primary Care Nurse Name: Ibeth Adams RN Position: [facility] RN Member [...] Care Nurse Name: Ashok Kevin RN Position: [facility] RN Member Role: Primary Care Nurse Name: Cody Garcia Position: [facility] Associate Professional Member Role: Lifetime Consulting Provider Address: Address: [address] [place] [address]- Name: Paige Nascimento RN Position: [facility] RN Member Role: Primary Care Nurse Name: Ge Covarrubias RN Position: [facility] RN Member Role: Primary Care Nurse Name: Orin Elmore RN Position: [facility] ED RN W/OE and Tasks Member Role: Primary Care Nurse Name: Allegra Liu RN Position: [facility] AMB Nurse Member Role: Primary Care Nurse Name: Shayan Pandya MD Position: [facility] Renal MD Member Role: Lifetime Consulting Physician Address: Address: [address] [place] [address] [address] [facility] [place] [address]- Name: Darlene Rodrigez RN Position: [facility] RN Member Role: Primary Care Nurse Name: Dolores Can RN Position: [facility] RN Member Role: Primary Care Nurse Name: Ingrid Verdugo RN Position: [facility] RN Member Role: Primary Care Nurse Name: Monica Rowell RN Position: [facility] RN Member Role: Primary Care Nurse Name: Jimi Fitzpatrick RN Position: [facility] RN Member Role: Primary Care Nurse Care Team Related Persons Name: RAULITO MARLEN Address: home [address] [place] [address] Name: MARLEN CABEZAS Address: home [address] [place] [address] Name: RAULITO NICK Name: [id number] GEMA Address: home [address] [place] [address]
--- OUTSIDE RECORDS SUMMARY | 2023-12-15 20:46 | XMS_ITS | Continuity of Care Document ---
Author Organization [facility] ter Address [address] [place] [id number]- Care Team Providers Care [employer] Administrator Name Role Phone Jany Baig DO Primary Care Physician Encounter [facility] Date(s): 07/07/23 - 07/07/[address] [id number] Attending Physician: Heron Carranza MD Allergies, Adverse [...] acel (oldterm) 08/02/12 Give n 1Result Comment: [facility]: [id number] 2Result Comment: [04/29/2017] [id number] 3Admin Note: FLUARIX 4Admin Note: 3 RDINJ 5Admin Note: #2 Medications acamprosate 333 mg oral delayed release tablet 1 tablet = 333 mg, By Mouth, 3 times a day, # 42 tablet, 4 Refills, Maintenance, 11/05/22 11:31:00 EDT, EC Tablet, [facility], Partial fill upon patient request if the prescription is for a schedule II opioid drug., 175, cm, 11/05/22 10:21:00... Start Date: 11/05/22 Stop Date: 01/14/23 Status: Ordered amLODIPine 5 mg oral tablet 1 tablet, By Mouth, Daily, ^1R1., # 30 tablet, 2 Refills, Maintenance, 06/02/23 8:00:00 EST, [facility], 175, cm, 03/22/23 6:50:00 EDT, [...] Gm, 12 Refills, Maintenance, 03/24/23 10:52:00 EDT, [facility], 28, APPLY TOPICALLY TO AFFECTED [...] Gm, 1 Refills, Maintenance, 07/07/23 17:36:00 EST, [facility], 30, USE 1 SPRAY(S) INTO EACH NOSTRIL TWICE A DAY, 175, cm, 07/07/23 9:46:00 EST, Height, 80.6, kg, 07/07/23 9:1... Start Date: 07/07/23 Status: Ordered folic acid 1 mg oral tablet 1, tablet, By Mouth, Daily, ^1R1., # 30 tablet, Refills 5, Maintenance, 03/20/23 16:22:00 EDT, Route to Pharmacy Electronically, [facility], 175, cm, 03/20/23 15:31:00 EDT, Height, 77.5, kg, 03/20/23 11:30:00 EDT, Dry Weight Start Date: 03/20/23 Status: Ordered furosemide 20 mg oral tablet 20 mg, 1, tablet, By Mouth, Every other day, # 30 tablet, Refills 3, Tot. Refills 3, Maintenance, 01/28/23 12:31:00 EDT, Route to Pharmacy Electronically, [facility], Partial fill upon patient request if the prescription is for a schedule II o... Start Date: 01/28/23 Status: Ordered gabapentin 300 mg oral capsule 300 mg, 1, capsule, By Mouth, Daily at bedtime, note dose/frequency change, # 90 capsule, Refills 4, Tot. Refills 4, Maintenance, 11/05/22 11:05:00 EDT, Route to Pharmacy Electronically, [facility], 175, cm, 11/05/22 10:21:00 EDT, Height, 88.9... Start Date: 11/05/22 Stop Date: 01/29/24 Status: Ordered hydrOXYzine hydrochloride 10 mg oral tablet 2 tablet, By Mouth, 2 times a day, PRN NEEDED FOR ANXIETY (VIAL), # 30 tablet, 3 Refills, Maintenance, 04/16/23 16:41:00 EDT, [facility], 175, cm, 03/22/23 6:50:00 EDT, Height, 77.5, kg, 03/20/23 11:30:00 EDT, Dry Weight Start Date: 04/16/23 Status: Ordered lactulose 10 gm/15 ml oral syrup 15 mL, By Mouth, 2 times a day, # 120 mL, 6 Refills, Maintenance, 02/26/23 10:11:00 EDT, [facility], 4, TAKE 15ML BY MOUTH TWO TIMES A DAY, 175, cm, 12/03/22 11:50:00 EDT, Height, 84, kg, 02/12/23 11:30:00 EDT, Dry Weight Start Date: 02/26/23 Status: Ordered magnesium oxide 400 mg oral tablet See Instructions, TAKE 1 TABLET BY MOUTH TWICE A DAY^1R1,1R4, # 60 tablet, 11 Refills, Maintenance,01/28/23 12:31:00 EDT, [facility], 175, cm, 12/03/22 11:50:00 EDT, Height, 88.9, kg, 10/21/22 20:41:00 EDT, Dry Weight Start Date: 01/28/23 Status: Ordered Melatonin 3 mg oral tablet 1 tablet, By Mouth, Daily at bedtime, PRN NEEDED FOR INSOMNIA (PACKAGE IN TRAY)^1R4, # 60 tablet, 5 Refills, Maintenance, 04/16/23 16:41:00 EDT, [facility], 60, TAKE 1 TABLET BY MOUTH [...] 02/26/23 10:11:00 EDT, Route to Pharmacy Electronically, [facility], 175, cm, 12/03/22 11:50:00 EDT, [...] 04/14/23 12:41:00 EDT, Route to Pharmacy Electronically, [facility], 175, cm, 03/22/23 6:50:00 EDT, Height, 77.5, kg, 03/20/23 11:30:00 EDT, Dry Weight Start Date: 04/14/23 Status: Ordered Tab-A-Jesse oral tablet 1 tablet, By Mouth, Daily, R1., # 30 tablet, 5 Refills, Maintenance, 05/06/23 19:16:00 EST, [facility], 30, TAKE 1 TABLET BY MOUTH ONCE A DAY^1R1, 175, cm, 03/22/23 6:50:00 EDT, Height, 77.5,kg, 03/20/23 11:30:00 EDT, Dry Weight Start Date: 05/06/23 Status: Ordered traZODone 50 mg oral tablet 2, tablet, By Mouth, Daily at bedtime, ^2R4., # 60 tablet, Refills 5, Maintenance, 02/26/23 10:11:00 EDT, Route to Pharmacy Electronically, [facility], 175, cm, 12/03/22 11:50:00 EDT, Height,84, [...] 02/09/23 23:18:00 EDT, Route to Pharmacy Electronically, [facility], 175, cm, 12/03/22 11:50:00 EDT, Height, 88.9, kg, 10/21/22 20:41:00 EDT, Dry Weight Start Date: 02/09/23 Status: Ordered Vitamin B6 50 mg oral tablet 1, tablet, By Mouth, Daily, R1., # 90 tablet, Refills 4, Maintenance, 11/16/22 13:39:00 EDT, Route to Pharmacy Electronically, [facility], 175, cm, 11/13/22 10:42:00 EDT, Height, [...] each, 1 Refills, Maintenance, 06/30/23 12:59:00 EST, [facility], 175, cm, 03/22/23 6:50:00 EDT, Height, [...] Team Personnel Name: Alexandra Colmenares RN Position: [facility] ED RN W/OE and Tasks Member Role: Primary Care Nurse Name: Garima Manzano RN Position: [facility] RN Member Role: Primary Care Nurse Name: Malgorzata Marinelli RN Position: [facility] RN Member Role: Primary Care Nurse Name: Joyce Roach RN Position: [facility] ED RN W/OE and Tasks Member Role: Primary Care Nurse Name: Mary Suazo RN Position: [facility] RN Member Role: Primary Care Nurse Name: Andres Pressley RN Position: [facility] ED RN W/OE and Tasks Member Role: Primary Care Nurse Name: Jany Baig DO Position: [facility] Physician - Primary Care Member Role: PCP Address: Address: [address] [place] [address] [facility] [place] [address]- Name: Kaye Payne RN Position: S RN Member Role: Primary Care Nurse Name: Garima Hutchinson Position: S RN Member Role: Primary Care Nurse Name: Malgorzata Austin Position: S RN Member Role: Primary Care Nurse Name: Ibeth Adams RN Position: [facility] RN Member Role: Primary Care Nurse Name: Torrie Hernandez RN Position: [facility] OB RN Member Role: Primary Care Nurse Name: Gretchen Knutson RN Position: [facility] SN RN Member Role: Primary Care Nurse Name: Aislinn Mckee RN Position: [facility] RN Member Role: Primary Care Nurse Name: Ashley Mcelroy Position: [facility] RN Member Role: Primary Care Nurse Name: Ashok Kevin RN Position: [facility] RN Member Role: Primary Care Nurse Name: Cody Garcia Position: [facility] Associate Professional Member Role: Lifetime Consulting Provider Address: Address: [address] [place] [address]- Name: Paige Nascimento RN Position: [facility] RN Member Role: Primary Care Nurse Name: Ge Covarrubias RN Position: [facility] RN Member Role: Primary Care Nurse Name: Orin Elmore RN Position: [facility] ED RN W/OE and Tasks Member Role: Primary Care Nurse Name: Allegra Liu RN Position: [facility] AMB Nurse Member Role: Primary Care Nurse Name: Shayan Pandya MD Position: [facility] Renal MD Member Role: Lifetime Consulting Physician Address: Address: [address] [place] [address] [address] [facility], [place] [address]- Name: Darlene Rodrigez RN Position: [facility] RN Member Role: Primary Care Nurse Name: Dolores Can RN Position: [facility] RN Member Role: Primary Care Nurse Name: Ingrid Verdugo RN Position: [facility] RN Member Role: Primary Care Nurse Name: Monica Rowell RN Position: [facility] RN Member Role: Primary Care Nurse Name: Jimi Fitzpatrick RN Position: [facility] RN Member Role: Primary Care Nurse Care Team Related Persons Name: MARLEN CABEZAS Address: home [address] [place] [address] Name: CAWU MARLEN Address: home [address] [place] [address] Name: RAULITO NICK Name: DUCBRIANGEMA WASHBURN Address: home [address] [place] [address]
--- OUTSIDE RECORDS SUMMARY | 2023-12-15 20:46 | XMS_ITS | Continuity of Care Document ---
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 Name Role Phone Jany Baig DO Primary Care Physician [place] [facility] [place](s): 11/05/22 - 11/12/22 [facility] [address] [place] [address]- Attending Physician: Jany Baig DO Allergies, Adverse [...] (oldterm) 08/02/12 Give n 1Result Comment: [facility]: [id number] 2Result Comment: [04/29/2017] [id number] 3Admin Note: FLUARIX 4Admin Note: 3 RDINJ 5Admin Note: #2 Medications acamprosate 333 mg oral delayed release tablet 1 tablet = 333 mg, By Mouth, 3 times a day, # 42 tablet, 4 Refills, Maintenance, 11/05/22 11:31:00 EDT, EC Tablet, [facility], Partial fill upon patient request if the prescription is for a schedule II opioid drug., 175, cm, 11/05/22 10:21:00... Start Date: 11/05/22 Stop Date: 01/14/23 Status: Ordered amLODIPine 5 mg oral tablet 1 tablet, By Mouth, Daily, ^1R1., # 30 tablet, 2 Refills, Maintenance, 10/06/22 4:58:00 EDT, [facility], 176, cm, 09/07/22 8:56:00 EDT, Height, 82.1, kg, 09/07/22 8:59:00 EDT, Dry Weight Start Date: 10/06/22 Status: Ordered baclofen 10 mg oral tablet See Instructions, TAKE 1 TABLET BY MOUTH THREE TIMES DAILY, # 90 tablet, Refills 0, Maintenance, 08/07/22 12:26:00 EST, Instructions Replace Required Details, [facility] to [facility], [facility], 176, cm, 08/07/22 11:37:00 EST, Height... Start Date: 08/07/22 Status: Ordered calcium (as carbonate)-vitamin D 500 mg-400 intl units oral tablet 1 tablet, By Mouth, Daily, ^1R1., # 28 tablet, 0 Refills, Maintenance, 10/08/22 16:58:00 EDT, [facility], 28, TAKE ONE TABLET BY MOUTH EVERY DAY ^1R1, 176, cm, 09/07/22 8:56:00 EDT, Height, 82.1, kg, 09/07/22 8:59:00 EDT, Dry Weight Start Date: 10/08/22 Status: Ordered CALCIUM + D 500/400 TABS [...] capsule, 6 Refills, Maintenance, 08/07/22 12:13:00 EST, [facility], 176, cm, 08/07/22 11:37:00 EST, Height, 79.8, kg, 07/31/22 22:40:00 EST, Dry Weight Start Date: 08/07/22 Status: Ordered Compression Stockings See Instructions, # 4 each, Refills 2, Tot. Refills 2, Maintenance, surgical, calf length 20-30 mm Hg M79.89 M79.606, 01/06/22 10:58:00 EDT, Supply Start Date: 01/06/22 Status: Ordered Diapers See Instructions, # 300 each, Refills 11, Tot. Refills 11, Maintenance, Aduld Adjustable Pullups SzMed use 2 daily #60 RAFI 99 mo, 11/05/22 11:28:00 EDT, Compound Start Date: 11/05/22 Status: Ordered Disposable Underpads n39.498 Disposable Underpads n39.498, See Instructions, # 60 each, Refills 11, Tot. Refills 11, Maintenance, RAFI 99 months, 11/05/22 11:28:00 EDT, Compound Start Date: 11/05/22 Status: Ordered Eucerin Original Healing Cream Eucerin [...] Gm, 11 Refills, Maintenance, 08/07/22 12:12:00 EST, [facility]/pharmacy #[id number], 30, USE 1 SPRAY(S) INTO EACH NOSTRIL TWICE A DAY, 176, cm,08/07/22 11:37:00 EST, Height, 79.8, kg, 07/31/22 2... Start Date: 08/07/22 Status: Ordered folic acid 1 mg oral tablet 1, tablet, By Mouth, Daily, R1., # 30 tablet, Refills 5, Tot. Refills 5, Maintenance, 10/06/22 4:59:00 EDT, Route to Pharmacy Electronically, [facility], 176, cm, 09/07/22 8:56:00 EDT, Height, [...] 09/03/22 14:50:00 EDT, Route to Pharmacy Electronically, [facility], 169, cm, 09/03/22 14:21:00 EDT, Height, 69, kg, 08/16/22 1:04:00 EST, Dry Weight Start Date: 09/03/22 Status: Ordered gabapentin 300 mg oral capsule 300 mg, 1, capsule, By Mouth, Daily at bedtime, note dose/frequency change, # 90 capsule, Refills 4, Tot. Refills 4, Maintenance, 11/05/22 11:05:00 EDT, Route to Pharm[facility]ically, [facility], 175, cm, 11/05/22 10:21:00 EDT, Height, 88.9... Start Date: 11/05/22 Stop Date: 01/29/24 Status: Ordered hydrOXYzine hydrochloride 10 mg oral tablet 2 tablet, By Mouth, 2 times a day, PRN NEEDED FOR ANXIETY (VIAL), # 30 tablet, 3 Refills, Maintenance, 09/24/22 17:01:00 EDT, [facility], 176, cm, 09/07/22 8:56:00 EDT, Height, 82.1, kg, 09/07/22 8:59:00 EDT, Dry Weight Start Date: 09/24/22 Status: Ordered lactulose 10 gm/15 ml oral syrup 15 mL, By Mouth, 2 times a day, # 120 mL, 6 Refills, Maintenance, 09/22/22 12:15:00 EDT, [facility], 4, TAKE 15ML BY MOUTH TWO TIMES A DAY, 176, cm, 09/07/22 8:56:00 EDT, Height, 82.1, kg, 09/07/22 8:59:00 EDT, Dry Weight Start Date: 09/22/22 Status: Ordered Lidoderm 5% film 1 patch, Topically, Daily, remove patches after 12 hours NSAIDS contraindicated High dose tylenol contraindicated remove patches after 12 hours Nueropathy, # 30 patch, 5 Refills, Maintenance, 11/05/22 11:04:00 EDT, [facility], Partial klaudia... Start Date: 11/05/22 Status: Ordered Melatonin 3 mg oral tablet 1 tablet, By Mouth, Daily at bedtime, PRN NEEDED FOR INSOMNIA (PACKAGE IN TRAY)^1R4, # 60 tablet, 5 Refills, Maintenance, 06/12/22 18:11:00 EST, [facility], 60, TAKE 1 TABLET BY MOUTH [...] 09/03/22 14:53:00 EDT, Route to Pharmacy Electronically, [facility], Partial fill upon patient request if the prescription is for a schedule II opioid drug... Start Date: 09/03/22 Stop Date: 03/02/23 Status: Ordered pyridoxine 50 mg oral tablet 50 mg, 1, tablet, By Mouth, Daily, for 90 days, # 90 tablet, Refills 4, Tot. Refills 4, Acute 01/15/23 11:42:00 EDT, 10/22/21 11:42:00 EDT, Route to Pharmacy Electronically, [facility], Partial fill upon patient request if [...] 11/05/22 11:31:00 EDT, Route to Pharmacy Electronically, [facility], Partial fill upon patient request if the prescription is for a schedule II opioid drug... Start Date: 11/05/22 Status: Ordered Tab-A-Jesse oral tablet 1 tablet, By Mouth, Daily, # 90 tablet, 9 Refills, 08/07/22 12:27:00 EST, [facility]/pharmacy #[id number], 28, 1tablet By Mouth Daily, 176, cm, 08/07/22 11:37:00 EST, Height, 79.8, kg, 07/31/22 22:40:00 EST, DryWeight Start Date: 08/07/22 Status: Ordered traZODone 50 mg oral tablet 2 tablets, By Mouth, Daily at bedtime, # 60 each, Refills 5, Tot. Refills 5, Maintenance, 09/03/22 17:13:00 EDT, [facility], [facility], 169, cm, 09/03/22 14:21:00 EDT, Height, 69, kg, 08/16/22 1:04:00 EST, Dry Weight Start Date: 09/03/22 Status: Ordered Urinal Urinal, See Instructions, # 1 each, Refills 3, Tot. Refills 3, Maintenance, Dx: Cirrhoisis, ambulatory dysfunction, incontinency, 11/05/22 12:17:00 EDT, Supply Start Date: 11/05/22 Status: Ordered Vitamin B1 100 mg oral tablet 1, tablet, By Mouth, Daily, # 90 tablet, Refills 3, Maintenance, 03/13/22 8:37:00 EDT, Route to Pharmacy Electronically, [facility], 175, cm, 01/06/22 10:34:00 EDT, Height, 78.3, kg, 12/26/2218:05:00 EDT, Dry Weight Start Date: 03/13/22 Status: Ordered Walker See Instructions, # 1 each, Maintenance, 2 wheeled Walker. Dx: Falls, gait abnormality, 10/24/22 10:07:00 EDT, Supply Start Date: 10/24/22 Status: Ordered Xifaxan 550 mg oral tablet 1 tablet, By Mouth, 2 times a day, ^1R1,1R4., # 60 tablet, 3 Refills, Maintenance, 10/01/22 15:19:00 EDT, [facility], 176, cm, 09/07/22 8:56:00 EDT, Height, [...] oldest [Reference Range]: 1 Height 175 cm (11/05/22 10:21 AM) Weight 80.9 kg (11/05/22 10:21 AM) Oxygen Saturation [94-100 %] 99 % (11/05/22 10:21 AM) Pulse Rate [55-90 bpm] 89 bpm (11/05/22 10:21 AM) Body Mass Index [18.5-24.99 kg/m2] 26.42 kg/m2 *H* (11/05/22 10:21 AM) Blood Pressure [90-138/55-84 mm Hg] 118/ 74mm Hg (11/05/22 10:21 AM) Mode of Delivery (Oxygen) Room air (11/05/22 10:21 AM) Blood pressure sites Arm, left (11/05/22 10:21 AM) Weight Obtained Via Standing scale (11/05/22 10:21 AM) Social History Social History Type Response Smoking Status 10 or more cigarette s (1/2 pack or more)/day in last 30 days entered on: 02/04/19 Sex Note * Fide Singh: PERFORM, SIGN, VERIFY Event Display: Patient Education/Instruction Authored Date: [id number] [facility] Clinical Summary Name GEMA CABEZAS Age 47 Years 1975 PCP Jany Baig DO PCP Visit Date 11/05/2022 10:04:00 Additional Instructions: Scheduled Appointments?? Future Appointments ?*[facility] ?[address]??[place],??[place],??[address] ?Phone:??--?Fax:??-- ?Appt. Date:??11/13/2022?10:40 AM ?Scheduled Provider:??Jany Baig DO ?[facility] ?[address]??[place],??[place],??[address] ?Phone:??[phone]?Fax:??-- ?Appt. Date:??11/24/2022?8:45 AM ?Scheduled Provider:??[facility] US Rm 4 ?*[facility] ?[address]??[place],??[place],??[address] ?Phone:??--?Fax:??-- ?Appt. Date:??12/03/2022?11:40 AM ?Scheduled Provider:??Jovanni BLAS , Jany ?[facility] ?[address] ?[facility],??[place],??[address] ?Phone:??[phone]?Fax:??-- ?Appt. Date:??02/05/2023?9:00 AM ?Scheduled Provider:??[id number] Follow-Up Instructions ?? Diagnosis Fracture of one rib, unspecified side, initial encounter for closed fracture; Polyneuropathy, unspecified Medications: Please continue your medications until treatment is completed or stopped by your provider. Discuss any questions related to medications with your provider. New Medications - Durable Medical Equipment (Urinal) Dx: Cirrhoisis, ambulatory dysfunction, incontinency. Refills: 3. Next Dose: Medications to Continue Taking That Have Changed [facility], [address] [place] [address] [phone], [phone] - Gabapentin (gabapentin 300 mg oral capsule) 1 capsule Oral Daily at Bedtime for 90 Days. note dose/frequency change. Refills: 4. Next Dose: Medications to Continue with No Changes [facility], [address] [place] [address] TEVIN Castellon [phone], [phone] Lidocaine Topical (Lidoderm 5% film) 1 patch Topically Daily. remove patches after 12 hours NSAIDS contraindicated High dose tylenol contraindicated remove patches after 12 hours Nueropathy. Refills: 5. Next Dose: These medications were not printed or sent to your pharmacy Acamprosate (acamprosate 333 mg oral delayed release tablet) 1 tab(s) Oral 3 times a day for 14 Days. Refills: 4. Next Dose: Amlodipine (amLODIPine 5 mg oral tablet) 1 tab(s) Oral Daily. ^1R1.. Refills: 2. Next Dose: Baclofen (baclofen 10 mg oral tablet) TAKE 1 TABLET BY MOUTH THREE TIMES DAILY. Refills: 0. Next Dose: Calcium And Vitamin D Combination (calcium (as carbonate)-vitamin D 500 mg-400 intl units oral tablet) 1 tab(s) Oral Daily. ^1R1.. Refills: 0. Next Dose: Durable Medical Equipment (Compression Stockings) surgical, calf length 20-30 mm Hg M79.89 M79.606. Refills: 2. Next Dose: Durable Medical Equipment (R aircast ankle-stirrup support brace) Dx: R inversion ankle sprain s93.409a. Refills: 0. Next Dose: Durable Medical Equipment (Walker) 2 wheeled Walker. Dx: Falls, gait abnormality. Refills: 0. Next Dose: Fluticasone Nasal (fluticasone 50 mcg/inh nasal spray) USE 1 SPRAY(S) INTO EACH NOSTRIL TWICE A DAY. Refills: 11. Next Dose: Folic Acid (folic acid 1 mg oral tablet) 1 tab(s) Oral Daily. R1.. Refills: 5. Next Dose: Furosemide (furosemide 20 mg oral tablet) 1 tab(s) Oral Daily. R1.. Refills: 5. Next Dose: Furosemide (furosemide 20 mg oral tablet) 1 tab(s) Oral every other day. Refills: 0. Next Dose: HydrOXYzine (hydrOXYzine hydrochloride 10 mg oral tablet) 2 tab(s) Oral twice a day as needed NEEDED FOR ANXIETY (VIAL). Refills: 3. Next Dose: Lactulose (lactulose 10 gm/15 ml oral syrup) 15 Milliliter Oral twice a day. Refills: 6. Next Dose: Melatonin (Melatonin 3 mg oral tablet) 1 tab(s) Oral Daily at Bedtime as needed NEEDED FOR INSOMNIA (PACKAGE IN TRAY)^1R4. Refills: 5. Next Dose: Miscellaneous Rx (CALCIUM + D 500/400 TABS) 1 tab(s) Oral Daily. ^1R2.. Refills: 0. Next Dose: Miscellaneous Rx (Eucerin Original Healing Cream) apply 2 x a day for dry skin dx: eczema L30.9. Refills: 11. Next Dose: Multivitamin (Tab-A-Jesse oral tablet) 1 tab(s) Oral Daily. Refills: 9. Next Dose: Pantoprazole (pantoprazole 40 mg oral delayed release tablet) 1 tab(s) Oral Daily for 90 Days. ^1R1.. Refills: 4. Next Dose: Paroxetine (PARoxetine 10 mg oral tablet) 1 tab(s) Oral Daily for 90 Days. Refills: 1. Next Dose: Pyridoxine (pyridoxine 50 mg oral tablet) 1 tab(s) Oral Daily for 90 Days. Refills: 4. Next Dose: Rifaximin (Xifaxan 550 mg oral tablet) 1 tab(s) Oral twice a day. ^1R1,1R4.. Refills: 3. Next Dose: Spironolactone (spironolactone 25 mg oral tablet) 1 tab(s) Oral Daily. Refills: 0. Next Dose: Thiamine (Vitamin B1 100 mg oral tablet) 1 tab(s) Oral Daily. Refills: 3. Next Dose: Trazodone (traZODone 50 mg oral tablet) 2 tablets Oral Daily at Bedtime. Refills: 5. Next Dose: Ubiquinone (Co Q-10 100 mg oral capsule) TAKE 1 CAPSULE BY MOUTH FOUR TIMES DAILY. Refills: 6. Next Dose: Allergy Info:?? NSAIDs; Tylenol; aspirin; ibuprofen Medications Given This Visit Future Orders ?Femur 2 Views Right? Order Date:11/05/22?- Complete on or after?11/05/22 Vital Signs Height 175 cm Weight 80.9 kg BMI 26.42 kg/m2 Blood Pressure 118 mm Hg/74 mm Hg Temperature Pulse Rate 89 bpm Respiratory Rate 02 Sat Mode of Delivery 99 %/Room air You can now view a summary of your hospital visit from the comfort of your home through a free online portal called [employer]. [employer] is a website that allows you to securely view your medical information including discharge summary, medications and follow-up visits. ??You can alsosend a secure electronic message to your doctor???s office to request appointments, renew medications or just ask a question. You can enroll at [email or web address] or register during your next office visit. [...] primary care provider, you may find a [facility] provider by calling [facility] at [phone]. For information about the plan of care [...] Team Personnel Name: Alexandra Colmenares RN Position: Jameel BEDOLLA RN W/OE and Tasks Member Role: Primary [...] Primary Care Member Role: PCP Address: Address: [address] [place] [address] Adult [place] [address]- Name: Neida Ballard RN Position: [facility] [...] Member Role: [employer] Consult[employer] Provider Address: Address: [address] [place] [address]- Name: Ge Covarrubias RN Position: [facility] [...] Member Role: [employer] Consulting Physician Address: Address: [address] [place] [address] [address] [facility], [place] [address]- Name: Darlene Rodrigez RN Position: [facility] RN Member Role: Primary Care Nurse Name: Kwan Mills RN Position: [facility] RN Member Role: Primary Care Nurse Name: Dolores Can RN Position: [facility] RN Member Role: Primary Care Nurse Name: Kim Rendon RN Position: [facility] RN Member Role: Primary Care Nurse Name: Monica Rowell RN Position: [facility] RN Member Role: Primary Care Nurse Name: Jimi Fitzpatrick RN Position: [facility] RN Member Role: Primary Care Nurse Care Team Related Persons Name: MARLEN CABEZAS Address: home [address] [place] [address] Name: MARLEN CABEZAS Address: [place] [address] Name: NICK CABEZAS Name: GEMA CABEZAS Address: [place] [address]
--- OUTSIDE RECORDS SUMMARY | 2023-12-15 20:47 | XMS_ITS | Continuity of Care Document ---
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 Role Phone Jany Baig DO Primary Care Physician Encounter [facility] Date(s): 09/07/22 - 11/04/22 [facility] [address] [place] [address] Drive, [address] [place] [address]- Attending Physician: Not on Staff, Attending MD [...] acel (oldterm) 08/02/12 Give n 1Result Comment: [facility]: [id number] 2Result Comment: [04/29/2017] [id number] 3Admin Note: FLUARIX 4Admin Note: 3 RDINJ 5Admin Note: #2 Medications acamprosate 333 mg oral delayed release tablet 1 tablet = 333 mg, By Mouth, 3 times a day, # 42 tablet, 4 Refills, Maintenance, 10/24/22 9:53:00 EDT, EC Tablet, [facility], Partial fill upon patient request if the prescription is for a schedule II opioid drug., 175, cm, 10/21/22 20:41:00 E... Start Date: 10/24/22 Stop Date: 01/02/23 Status: Ordered amLODIPine 5 mg oral tablet 1 tablet, By Mouth, Daily, ^1R1., # 30 tablet, 2 Refills, Maintenance, 10/06/22 4:58:00 [facility], 176, cm, 09/07/22 8:56:00 EDT, Height, 82.1, kg, 09/07/22 8:59:00 EDT, Dry Weight Start Date: 10/06/22 Status: Ordered baclofen 10 mg oral tablet See Instructions, TAKE 1 TABLET BY MOUTH THREE TIMES DAILY, # 90 tablet, Refills 0, Maintenance, 08/07/22 12:26:00 EST, Instructions Replace Required Details, Route to Pharmacy Electronically, [facility], 176, cm, 08/07/22 11:37:00 EST, Height... Start Date: 08/07/22 Status: Ordered calcium (as carbonate)-vitamin D 500 mg-400 intl units oral tablet 1 tablet, By Mouth, Daily, ^1R1., # 28 tablet, 0 Refills, Maintenance, 10/08/22 16:58:00 EDT, [facility], 28, TAKE ONE TABLET BY MOUTH [...] capsule, 6 Refills, Maintenance, 08/07/22 12:13:00 EST, [facility], 176, cm, 08/07/22 11:37:00 EST, Height, [...] Gm, 11 Refills, Maintenance, 08/07/22 12:12:00 EST, [facility]/pharmacy #[id number], 30, USE 1 SPRAY(S) INTO EACH NOSTRIL TWICE A DAY, 176, cm,08/07/22 11:37:00 EST, Height, 79.8, kg, 07/31/22 2... Start Date: 08/07/22 Status: Ordered folic acid 1 mg oral tablet 1, tablet, By Mouth, Daily, R1., # 30 tablet, Refills 5, Tot. Refills 5, Maintenance, 10/06/22 4:59:00 EDT, Route to Pharmacy Electronically, [facility], 176, cm, 09/07/22 8:56:00 EDT, Height, [...] 09/03/22 14:50:00 EDT, Route to Pharmacy Electronically, [facility], 169, cm, 09/03/22 14:21:00 EDT, Height, 69, kg, 08/16/22 1:04:00 EST, Dry Weight Start Date: 09/03/22 Status: Ordered gabapentin 300 mg oral capsule 300 mg, 1, capsule, By Mouth, 2 times a day, note dose/frequency change, # 180 capsule, Refills 4, Tot. Refills 4, Maintenance, 09/03/22 14:55:00 EDT, Route to Pharmacy Electronically, [facility], 169, cm, 09/03/22 14:21:00 EDT, Height, 69, kg... Start Date: 09/03/22 Stop Date: 11/27/23 Status: Ordered hydrOXYzine hydrochloride 10 mg oral tablet 2 tablet, By Mouth, 2 times a day, PRN NEEDED FOR ANXIETY (VIAL), # 30 tablet, 3 Refills, Maintenance, 09/24/22 17:01:00 EDT, [facility], 176, cm, 09/07/22 8:56:00 EDT, Height, 82.1, kg, 09/07/22 8:59:00 EDT, Dry Weight Start Date: 09/24/22 Status: Ordered lactulose 10 gm/15 ml oral syrup 15 mL, By Mouth, 2 times a day, # 120 mL, 6 Refills, Maintenance, 09/22/22 12:15:00 EDT, [facility], 4, TAKE 15ML BY MOUTH TWO TIMES A DAY, 176, cm, 09/07/22 8:56:00 EDT, Height, 82.1, kg, 09/07/22 8:59:00 EDT, Dry Weight Start Date: 09/22/22 Status: Ordered Lidoderm 5% film 1 patch, Topically, Daily, remove patches after 12 hours NSAIDS contraindicated High dose tylenol contraindicated remove patches after 12 hours Nueropathy, # 30 patch, 5 Refills, Maintenance, 09/03/22 16:34:00 EDT, [facility], Partial klaudia... Start Date: 09/03/22 Status: Ordered Melatonin 3 mg oral tablet 1 tablet, By Mouth, Daily at bedtime, PRN NEEDED FOR INSOMNIA (PACKAGE IN TRAY)^1R4, # 60 tablet, 5 Refills, Maintenance, 06/12/22 18:11:00 EST[facility], 60, TAKE 1 TABLET BY MOUTH [...] 09/03/22 14:53:00 EDT, Route to Pharmacy Electronically, [facility], Partial fill upon patient request if the prescription is for a schedule II opioid drug... Start Date: 09/03/22 Stop Date: 03/02/23 Status: Ordered pyridoxine 50 mg oral tablet 50 mg, 1, tablet, By Mouth, Daily, for 90 days, # 90 tablet, Refills 4, Tot. Refills 4, Acute 01/15/23 11:42:00 EDT, 10/22/21 11:42:00 EDT, [facility], [facility], Partial fill upon patient request if [...] Mouth, Daily, # 30 tablet, Refills 0, Tot. Refills 0, Maintenance, 10/24/22 9:56:00 EDT, Route to Pharmacy Electronically, [facility], Partial fill upon patient request if the prescription is for a schedule II opioid drug.... Start Date: 10/24/22 Status: Ordered Tab-A-Jesse oral tablet 1 tablet, By Mouth, Daily, # 90 tablet, 9 Refills, 08/07/22 12:27:00 EST, [facility]/pharmacy #[id number], 28, 1tablet By Mouth Daily, 176, cm, 08/07/22 11:37:00 EST, Height, 79.8, kg, 07/31/22 22:40:00 EST, DryWeight Start Date: 08/07/22 Status: Ordered traZODone 50 mg oral tablet 2 tablets, By Mouth, Daily at bedtime, # 60 each, Refills 5, Tot. Refills 5, Maintenance, 09/03/22 17:13:00 EDT, Route to Pharmacy Electronically, [facility], 169, cm, 09/03/22 14:21:00 EDT, Height, 69, kg, 08/16/22 1:04:00 EST, Dry Weight Start Date: 09/03/22 Status: Ordered Vitamin B1 100 mg oral tablet 1, tablet, By Mouth, Daily, # 90 tablet, Refills 3, Maintenance, 03/13/22 8:37:00 EDT, Route to Pharmacy Electronically, [facility], 175, cm, 01/06/22 10:34:00 EDT, Height, [...] tablet, 3 Refills, Maintenance, 10/01/22 15:19:00 EDT, [facility], 176, cm, 09/07/22 8:56:00 EDT, Height, [...] Team Personnel Name: Alexandra Colmenares RN Position: [facility] ED RN W/OE and Tasks Member Role: Primary Care Nurse Name: Garima Manzano RN Position: [facility] RN Member Role: Primary Care Nurse Name: Malgorzata Marinelli RN Position: [facility] RN Member Role: Primary Care Nurse Name: Joyce Roach RN Position: [facility] RN Member Role: Primary Care Nurse Name: aMry Suazo RN Position: [facility] RN Member Role: Primary Care Nurse Name: Andres Pressley RN Position: [facility] RN Member Role: Primary Care Nurse Name: Jany Baig DO Position: [facility] Physician - Primary Care Member Role: PCP Address: Address: [address] [place] [address] [facility] [address] Name: Neida Ballard RN Position: [facility] RN Member Role: Primary Care Nurse Name: Kaye Payne RN Position: [facility] RN Member Role: Primary Care Nurse Name: Garima Hutchinson Position: [facility] RN Member Role: Primary Care Nurse Name: Malgorzata Austin Position: [facility] RN Member Role: Primary Care Nurse Name: Ibeth Adams RN Position: [facility] RN Member Role: Primary Care Nurse Name: Torrie Hernandez RN Position: [facility] OB RN Member Role: Primary Care Nurse Name: Gretchen Knutson RN Position: [facility] SN RN Member Role: Primary Care Nurse Name: Aislinn Mckee RN Position: [facility] RN Member Role: Primary Care Nurse Name: Ashley Mcelroy Position: [facility] RN Member Role: Primary Care Nurse Name: Cody Garcia Position: [facility] Associate Professional Member Role: Lifetime Consulting Provider Address: Address: [address] [place] [address]- Name: Ge Covarrubias RN Position: [facility] RN Member Role: Primary Care Nurse Name: Orin Elmore RN Position: [facility] ED RN W/OE and Tasks Member Role: Primary Care Nurse Name: Allegra Liu RN Position: [facility] PCO RN Member Role: Primary Care Nurse Name: Shayan Pandya MD Position: [facility] Renal MD Member Role: Lifetime Consulting Physician Address: Address: [address] [place] [address] [address] [facility] [place] [address]- Name: Darlene Rodrigez RN Position: [facility] RN Member Role: Primary Care Nurse Name: Kwan Mills RN Position: [facility] RN Member Role: Primary Care Nurse Name: Dolores Can RN Position: [facility] RN Member Role: Primary Care Nurse Name: Kim Rendon RN Position: [facility] RN Member Role: Primary Care Nurse Name: Monica Rowell RN Position: [facility] RN Member Role: Primary Care Nurse Name: Jimi Fitzpatrick RN Position: [facility] RN Member Role: Primary Care Nurse Care Team Related Persons Name: MARLEN CABEZAS Address: home [address] [place] [address] Name: MARLEN CABEZAS Address: home [address] [place] [address] Name: RAULITO NICK Name: [id number] Address: home [address] [place] [address]
--- OUTSIDE RECORDS SUMMARY | 2023-12-15 20:47 | XMS_ITS | Continuity of Care Document ---
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 Role Phone Jany Baig DO Primary Care Physician Encounter [facility] Date(s): 01/13/23 - 02/12/23 [facility] [address] [place] [address]- Allergies, Adverse Reactions, Alerts Substance Reaction Severity [...] (oldterm) 08/02/12 Give n 1Result Comment: [facility]: [id number] 2Result Comment: [04/29/2017] [id number] 3Admin Note: FLUARIX 4Admin Note: 3 RDINJ 5Admin Note: #2 Medications acamprosate 333 mg oral delayed release tablet 1 tablet = 333 mg, By Mouth, 3 times a day, # 42 tablet, 4 Refills, Maintenance, 11/05/22 11:31:00 EDT, EC Tablet, [facility], Partial fill upon patient request if the prescription is for a schedule II opioid drug., 175, cm, 11/05/22 10:21:00... Start Date: 11/05/22 Stop Date: 01/14/23 Status: Ordered amLODIPine 5 mg oral tablet 1 tablet, By Mouth, Daily, ^1R1., # 30 tablet, 5 Refills, Maintenance, 12/22/22 7:20:00 EDT, [facility], 175, cm, 12/03/22 11:50:00 EDT, Height, 88.9, kg, 10/21/22 20:41:00 EDT, Dry Weight Start Date: 12/22/22 Status: Ordered bacitracin zinc 500 units/g topical ointment 1 application, Topically, 2 times a day, # 30 Gm, 0 Refills, Acute 02/19/23 20:00:00 EDT, 02/12/23 11:47:00 EDT, Ointment, [facility], Partial fill upon patient request if the prescription isfor a schedule II opioid drug., 1 application Topic... Start Date: 02/12/23 Stop Date: 02/19/23 Status: Ordered baclofen 10 mg oral tablet See Instructions, TAKE ONE TABLET BY MOUTH THREE TIMES A DAY ^1R1,1R2,1R4, # 90 tablet, Refills 5, Tot. Refills 5, Maintenance, 01/14/23 17:55:00 EDT, Instructions Replace Required Details, Route to Pharmacy Electronically, [facility], 175, cm... Start Date: 01/14/23 Status: Ordered calcium (as carbonate)-vitamin D 500 mg-400 intl units oral tablet 1 tablet, By Mouth, Daily, ^1R1., # 28 tablet, 0 Refills, Maintenance, 12/01/22 16:12:00 EDT, [facility], 28, 1 tablet By [...] capsule, 6 Refills, Maintenance, 12/03/22 12:13:00 EDT, [facility], 175, cm, 12/03/22 11:50:00 EDT, Height, [...] PAIN, # 100 Gm, 0 Refills, Maintenance, 01/28/23 12:31:00 EDT, [facility], 13, APPLY TOPICALLY FOUR TIMES A DAY NEEDED FOR PAIN, 175, cm, 12/03/22 11:50:00 EDT, Height, 88.9,... Start Date: 01/28/23 Status: Ordered diclofenac 1% topical gel See Instructions, APPLY TOPICALLY FOUR TIMES A DAY NEEDED FOR PAIN, # 100 Gm, 0 Refills, Maintenance, 12/22/22 16:58:00 EDT, [facility], 13, APPLY TOPICALLY FOUR TIMES A [...] Gm, 11 Refills, Maintenance, 08/07/22 12:12:00 EST, [facility]/pharmacy #[id number], 30, USE 1 SPRAY(S) INTO EACH NOSTRIL TWICE A DAY, 176, cm,08/07/22 11:37:00 EST, Height, 79.8, kg, 07/31/22 2... Start Date: 08/07/22 Status: Ordered folic acid 1 mg oral tablet 1, tablet, By Mouth, Daily, R1., # 30 tablet, Refills 5, Tot. Refills 5, Maintenance, 10/06/22 4:59:00 EDT, Route to Pharmacy Electronically, [facility], 176, cm, 09/07/22 8:56:00 EDT, Height, 82.1, kg, 09/07/22 8:59:00 EDT, Dry Weight Start Date: 10/06/22 Status: Ordered furosemide 20 mg oral tablet 1, tablet, By Mouth, Daily, R1., # 30 tablet, Refills 5, Tot. Refills 5, Maintenance, 09/03/22 14:50:00 EDT, Route to Pharmacy Electronically, [facility], 169, cm, 09/03/22 14:21:00 EDT, Height, 69, kg, 08/16/22 1:04:00 EST, Dry Weight Start Date: 09/03/22 Status: Ordered furosemide 20 mg oral tablet 20 mg, 1, tablet, By Mouth, Every other day, # 30 tablet, Refills 3, Tot. Refills 3, Maintenance, 01/28/23 12:31:00 EDT, Route to Pharmacy Electronically, [facility], Partial fill upon patient request if the prescription is for a schedule II o... Start Date: 01/28/23 Status: Ordered gabapentin 300 mg oral capsule 300 mg, 1, capsule, By Mouth, Daily at bedtime, note dose/frequency change, # 90 capsule, Refills 4, Tot. Refills 4, Maintenance, 11/05/22 11:05:00 EDT, Route to Pharmacy Electronically, [facility], 175, cm, 11/05/22 10:21:00 EDT, Height, 88.9... Start Date: 11/05/22 Stop Date: 01/29/24 Status: Ordered hydrOXYzine hydrochloride 10 mg oral tablet 2 tablet, By Mouth, 2 times a day, PRN NEEDED FOR ANXIETY (VIAL), # 30 tablet, 3 Refills, Maintenance, 12/22/22 16:57:00 EDT, [facility], 175, cm, 12/03/22 11:50:00 EDT, Height, 88.9, kg, 10/21/22 20:41:00 EDT, Dry Weight Start Date: 12/22/22 Status: Ordered lactulose 10 gm/15 ml oral syrup 15 mL, By Mouth, 2 times a day, # 120 mL, 6 Refills, Maintenance, 09/22/22 12:15:00 EDT, [facility], 4, TAKE 15ML BY MOUTH TWO TIMES A DAY, 176, cm, 09/07/22 8:56:00 EDT, Height, 82.1, kg, 09/07/22 8:59:00 EDT, Dry Weight Start Date: 09/22/22 Status: Ordered Lidoderm 5% film 1 patch, Topically, Daily, remove patches after 12 hours NSAIDS contraindicated High dose tylenol contraindicated remove patches after 12 hours Nueropathy, # 30 patch, 5 Refills, Maintenance, 11/05/22 11:04:00 EDT, [facility], Partial klaudia... Start Date: 11/05/22 Status: Ordered magnesium oxide 400 mg oral tablet See Instructions, TAKE 1 TABLET BY MOUTH TWICE A DAY^1R1,1R4, # 60 tablet, 11 Refills, Maintenance,01/28/23 12:31:00 EDT, [facility], 175, cm, 12/03/22 11:50:00 EDT, Height, 88.9, kg, 10/21/22 20:41:00 EDT, Dry Weight Start Date: 01/28/23 Status: Ordered Melatonin 3 mg oral tablet 1 tablet, By Mouth, Daily at bedtime, PRN NEEDED FOR INSOMNIA (PACKAGE IN TRAY)^1R4, # 60 tablet, 5 Refills, Maintenance, 06/12/22 18:11:00 EST, [facility], 60, TAKE 1 TABLET BY [...] 09/03/22 14:53:00 EDT, Route to Pharmacy Electronically, [facility], Partial fill upon patient [...] 11/05/22 11:31:00 EDT, Route to Pharmacy Electronically, [facility], Partial fill upon patient request if the prescription is for a schedule II opioid drug... Start Date: 11/05/22 Status: Ordered Tab-A-Jesse oral tablet 1 tablet, By Mouth, Daily, # 90 tablet, 1 Refills, 12/01/22 12:59:00 EDT, [facility], 28, 1tablet By Mouth Daily, 175, cm, 11/13/22 10:42:00 EDT, Height, 88.9, kg, 10/21/22 20:41:00 EDT, DryWeight Start Date: 12/01/22 Status: Ordered traZODone 50 mg oral tablet 2 tablets, By Mouth, Daily at bedtime, # 60 each, Refills 5, Tot. Refills 5, Maintenance, 09/03/22 17:13:00 EDT, Route to Pharmacy Electronically, [facility], 169, cm, 09/03/22 14:21:00 EDT, Height, [...] 02/09/23 23:18:00 EDT, Route to Pharmacy Electronically, [facility], 175, cm, 12/03/22 11:50:00 EDT, Height, 88.9, kg, 10/21/22 20:41:00 EDT, Dry Weight Start Date: 02/09/23 Status: Ordered Vitamin B6 50 mg oral tablet 1, tablet, By Mouth, Daily, R1., # 90 tablet, Refills 4, Maintenance, 11/16/22 13:39:00 EDT, Route to Pharmacy Electronically, [facility], 175, cm, 11/13/22 10:42:00 EDT, Height, [...] tablet, 3 Refills, Maintenance, 10/01/22 15:19:00 EDT, [facility], 176, cm, 09/07/22 8:56:00 EDT, Height, [...] Team Personnel Name: Alexandra Colmenares RN Position[facility] ED RN W/OE and Tasks Member Role: Primary Care Nurse Name: Garima Manzano RN Position: [facility] RN Member Role: Primary Care Nurse Name: Malgorzata Marinelli RN Position: [facility] RN Member Role: Primary Care Nurse Name: Joyce Roach RN Position: [facility] RN Member Role: Primary Care Nurse Name: Mary Suazo RN Position: [facility] RN Member Role: Primary Care Nurse Name: Andres Pressley RN Position: [facility] RN Member Role: Primary Care Nurse Name: Jany Baig DO Position: [facility] Physician - Primary Care Member Role: PCP Address: Address: [address] [place] [address] Adult [place] [address]- Name: Neida Ballard RN Position: [facility] RN Member Role: Primary Care Nurse Name: Kaye Payne RN Position: [facility] RN Member Role: Primary Care Nurse Name: Garima Hutchinson Position: [facility] RN Member Role: Primary Care Nurse Name: Malgorzata Austin Position: [facility] RN Member Role: Primary Care Nurse Name: Ibeth Adams RN Position: [facility] RN Member Role: Primary Care Nurse Name: Torrie Hernandez RN Position: [facility] OB RN Member Role: Primary Care Nurse Name: Gretchen Knutson RN Position: [facility] SN RN Member Role: Primary Care Nurse Name: Aislinn Mckee RN Position: [facility] RN Member Role: Primary Care Nurse Name: Ashley Mcelroy Position: [facility] RN Member Role: Primary Care Nurse Name: Cody Garcia Position: [facility] Associate Professional Member Role: Lifetime Consulting Provider Address: Address: [address] [place] [address]- Name: Ge Covarrubias RN Position: [facility] RN Member Role: Primary Care Nurse Name: Orin Elmore RN Position: [facility] ED RN W/OE and Tasks Member Role: Primary Care Nurse Name: Allegra Liu RN Position: [facility] AMB Nurse Member Role: Primary Care Nurse Name: Shayan Pandya MD Position: [facility] Renal MD Member Role: Lifetime Consulting Physician Address: Address: [address] [facility] [address] [facility] [place] [address]- Name: Darlene Rodrigez RN Position: [facility] RN Member Role: Primary Care Nurse Name: Kwan Mills RN Position: [facility] RN Member Role: Primary Care Nurse Name: Dolores Can RN Position: [facility] RN Member Role: Primary Care Nurse Name: Monica Rowell RN Position: [facility] RN Member Role: Primary Care Nurse Name: Jimi Fitzpatrick RN Position: [facility] RN Member Role: Primary Care Nurse Care Team Related Persons Name: MARLEN CABEZAS Address: home [address] [place] [id number] Name: MARLEN CABEZAS Address: home [address] [place] [id number] Name: NICK CABEZAS Name: GEMA CABEZAS Address: home [address] [place] [address]
--- OUTSIDE RECORDS SUMMARY | 2023-12-15 20:47 | XMS_ITS | Continuity of Care Document ---
Author Organization [facility] Address [address] [place] [address]- Care Team Providers Care Clinical Review Nurse Name Role Phone Jany Baig DO Primary Care Physician Encounter [facility] Date(s): 09/02/23 - 10/02/23 [facility] [address] [place], [place] [address] Allergies, Adverse Reactions, Alerts Substance [...] (oldterm) 08/02/12 Give n 1Result Comment: [facility]: [id number] 2Result Comment: [04/29/2017] 20303-481-14 3Admin Note: FLUARIX 4Admin Note: 3 RDINJ 5Admin Note: #2 Medications acamprosate 333 mg oral delayed release tablet 2 tablet = 666 mg, By Mouth, 3 times a day, # 180 tablet, 1 Refills, Maintenance, 07/28/23 11:04:00EST, EC Tablet, [facility], Partial fill upon patient request [...] tablet, 2 Refills, Maintenance, 07/28/23 11:06:00 EST, [facility], 175, cm, 07/28/23 9:11:00 EST, Height, 61.3, kg, 07/12/23 23:27:00 EST, Dry Weight Start Date: 07/28/23 Status: Ordered amLODIPine 5 mg oral tablet 1 tablet, By Mouth, Daily, ^1R1., # 30 tablet, 2 Refills, Maintenance, 06/02/23 8:00:00 EST, [facility], 175, cm, 03/22/23 6:50:00 EDT, Height, [...] 07/28/23 11:10:00 EST, Route to Pharmacy Electronically, [facility], Partial fill upon patient request if [...] Gm, 12 Refills, Maintenance, 07/28/23 11:06:00 EST, [facility], 28, APPLY TOPICALLY TO AFFECTED AREA(S) [...] Gm, 1 Refills, Maintenance, 07/28/23 12:07:00 EST, [facility], 30, USE 1 SPRAY(S) INTO EACH [...] 07/28/23 12:08:00 EST, Route to Pharmacy Electronically, [facility], 175, cm, 07/28/23 9:11:00 EST, Height, 61.3, kg, 07/12/23 23:27:00 EST, Dry Weight Start Date: 07/28/23 Status: Ordered furosemide 20 mg oral tablet 20 mg, 1, tablet, By Mouth, Every other day, # 30 tablet, Refills 1, Tot. Refills 1, Maintenance, 07/28/23 12:08:00 EST, Route to Pharmacy Electronically, [facility], Partial fill upon patient request if the prescription is for a schedule II... Start Date: 07/28/23 Status: Ordered gabapentin 300 mg oral capsule 300 mg, 1, capsule, By Mouth, Daily at bedtime, note dose/frequency change, # 30 capsule, Refills 1, Tot. Refills 1, Maintenance, 07/28/23 12:09:00 EST, Route to Pharmacy Electronically, [facility], 175, cm, 07/28/23 9:11:00 EST, Height, [...] tablet, 3 Refills, Maintenance, 07/28/23 12:10:00 EST, [facility], 175, cm, 07/28/23 9:11:00 EST, Height, 61.3, kg,07/12/23 23:27:00 EST, Dry Weight Start Date: 07/28/23 Status: Ordered lactulose 10 gm/15 ml oral syrup 30 mL = 20 Gm, By Mouth, 3 times a day, for 30 days, # 2,700 mL, 2 Refills, Acute 10/26/23 12:13:00EDT, 07/28/23 12:13:00 EST, Syrup, [facility], Partial fill upon patient request if [...] 60 tablet, 11 Refills, Maintenance,07/28/23 12:09:00 EST, [facility], 175, cm, 07/28/23 9:11:00 EST, Height, [...] tablet, 5 Refills, Maintenance, 07/28/23 12:09:00 EST, [facility], 60, 1 tablet By Mouth Daily [...] 09/29/24 19:11:00 EDT, 09/30/23 19:11:00 EDT, Gum, [facility], Partial fill upon patient request if [...] 07/28/23 12:11:00 EST, Route to Pharmacy Electronically, [facility], 175, cm, 07/28/23 9:11:00EST, Height, 61.3, [...] 07/28/23 12:12:00 EST, Route to Pharmacy Electronically, [facility], 175, cm, 07/28/23 9:11:00 EST, Height, 61.3, kg, 07/12/23 23:27:00 EST, Dry Weight Start Date: 07/28/23 Status: Ordered spironolactone 25 mg oral tablet 1, tablet, By Mouth, Daily, ^1R2., # 30 tablet, Refills 5, Tot. Refills 5, Maintenance, 04/14/23 12:41:00 EDT, Route to Pharmacy Electronically, [facility], 175, cm, 03/22/23 6:50:00 EDT, Height, 77.5, kg, 03/20/23 11:30:00 EDT, Dry Weight Start Date: 04/14/23 Status: Ordered Tab-A-Jesse oral tablet 1 tablet, By Mouth, Daily, R1., # 30 tablet, 5 Refills, Maintenance, 05/06/23 19:16:00 EST, [facility], 30, TAKE 1 TABLET BY MOUTH [...] 02/26/23 10:11:00 EDT, Route to Pharmacy Electronically, [facility], 175, cm, 12/03/22 11:50:00 EDT, Height,84, kg, 02/12/23 11:30:00 EDT, Dry Weight Start Date: 02/26/23 Status: Ordered traZODone 50 mg oral tablet 50 mg, 1, tablet, By Mouth, Daily at bedtime, ^2R4., # 60 tablet, Refills 5, Tot. Refills 5, Maintenance, 07/28/23 12:12:00 EST, Route to Pharmacy Electronically, [facility], 175, cm, 07/28/23 9:11:00 EST, Height, [...] 02/09/23 23:18:00 EDT, Route to Pharmacy Electronically, [facility], 175, cm, 12/03/22 11:50:00 EDT, Height, 88.9, kg, 10/21/22 20:41:00 EDT, Dry Weight Start Date: 02/09/23 Status: Ordered Vitamin B1 100 mg oral tablet 1, tablet, By Mouth, Daily, # 90 tablet, Refills 3, Tot. Refills 3, Maintenance, 07/28/23 12:12:00 EST, Route to Pharmacy Electronically, [facility], 175, cm, 07/28/23 9:11:00 EST, Height, 61.3, kg, 07/12/23 23:27:00 EST, Dry Weight Start Date: 07/28/23 Status: Ordered Vitamin B6 50 mg oral tablet 1, tablet, By Mouth, Daily, R1., # 90 tablet, Refills 4, Maintenance, 11/16/22 13:39:00 EDT, Route to Pharmacy Electronically, [facility], 175, cm, 11/13/22 10:42:00 EDT, Height, 88.9, kg, 10/21/22 20:41:00 EDT, Dry Weight Start Date: 11/16/22 Status: Ordered Vitamin B6 50 mg oral tablet 1, tablet, By Mouth, Daily, R1., # 90 tablet, Refills 4, Tot. Refills 4, Maintenance, 07/28/23 12:11:00 EST, Route to Pharmacy Electronically, [facility], 175, cm, 07/28/23 9:11:00 EST, Height, [...] each, 5 Refills, Maintenance, 09/30/23 19:11:00 EDT, [facility], 175, cm, 09/24/23 11:09:00 EDT, Height, [...] Team Personnel Name: Shira Galindo RN Position: [facility] RN Member Role: Primary Care Nurse Name: Lisa Nunez RN Position: S RN Member Role: Primary Care Nurse Name: Alexandra Colmenares RN Position: [facility] ED RN W/OE and Tasks Member Role: Primary Care Nurse Name: Garima Manzano RN Position: [facility] RN Member Role: Primary Care Nurse Name: Malgorzata Marinelli RN Position: [facility] RN Member Role: Primary Care Nurse Name: Joyce Roach RN Position: [facility] ED RN W/OE and Tasks Member Role: Primary Care Nurse Name: Mary Suazo RN Position: [facility] RN Member Role: Primary Care Nurse Name: Lucina Peralta RN Position: [facility] RN Member Role: Primary Care Nurse Name: Maria Esther Craig LPN Position: [facility] RN Member Role: Primary Care Nurse Name: Kaye Comer RN Position: [facility] RN Member Role: Primary Care Nurse Name: Andres Pressley RN Position: [facility] ED RN W/OE and Tasks Member Role: Primary Care Nurse Name: Jany Baig DO Position: [facility] Physician - Primary Care Member Role: PCP Address: Address: [address] [place] [address] Adult [facility] Pediatric Medicine [address] Name: Garima Curry RN Position: [facility] RN Member Role: Primary Care Nurse Name: Malgorzata Austin Position: [facility] RN Member Role: Primary Care Nurse Name: Ibeth Adams RN Position: [facility] RN Member Role: Primary Care Nurse Name: Torrie Hernandez RN Position: [facility] OB RN Member Role: Primary Care Nurse Name: Gretchen Knutson RN Position: [facility] SN RN Member Role: Primary Care Nurse Name: Aislinn Mckee RN Position: [facility] RN Member Role: Primary Care Nurse Name: Ashley Mcelroy Position: [facility] RN Member Role: Primary Care Nurse Name: Ashok Kevin RN Position: [facility] RN Member Role: Primary Care Nurse Name: Cody Garcia Position: [facility] Associate Professional Member Role: [employer] Consult[employer] Provider Address: Address: [address] [place] [id number]- Name: Paige Nascimento RN Position: [facility] RN Member Role: Primary Care Nurse Name: Ge Covarrubias RN Position: [facility] RN Member Role: Primary Care Nurse Name: Orin Elmore RN Position: [facility] ED RN W/OE and Tasks Member Role: Primary Care Nurse Name: Allegra Liu RN Position: [facility] AMB Nurse Member Role: Primary Care Nurse Name: Shayan Pandya MD Position: [facility] Renal MD Member Role: Lifetime Consulting Physician Address: Address: [address] [place] [address] [address] [facility], [place] [address]- Name: Kimberley Pittman RN Position: [facility] RN Member Role: Primary Care Nurse Name: Darlene Rodrigez RN Position: [facility] RN Member Role: Primary Care Nurse Name: Dixie Duke RN Position: [facility] RN Member Role: Primary Care Nurse Name: Kwan Mills RN Position: [facility] ED RN W/OE and Tasks Member Role: Primary Care Nurse Name: Ingrid Verdugo RN Position: [facility] RN Member Role: Primary Care Nurse Name: Monica Rowell RN Position: [facility] RN Member Role: Primary Care Nurse Name: Jimi Fitzpatrick RN Position: [facility] RN Member Role: Primary Care Nurse Care Team Related Persons Name: MARLEN CABEZAS Address: home [address] [place], [place] Name: MARLEN CABEZAS Address: home [address] [place], [place] Name: RAULITO NICK Name: CAWU GEMA Address: home [address] [place], [place] Name: ELTON CHENG Address: home [address] [place] [id number]
--- OUTSIDE RECORDS SUMMARY | 2023-12-15 20:47 | XMS_ITS | Continuity of Care Document ---
Author Organization [facility] Address [address] [place] [address]- Care Team Providers Care Indian Nanny Name Role Phone Jany Baig DO Primary Care Physician [place] [facility]): 05/20/23 - 06/19/23 [facility] [address] [place] [address]- Allergies, Adverse Reactions, Alerts Substance Reaction Severity [...] (oldterm) 08/02/12 Give n 1Result Comment: [facility]: [id number] 2Result Comment: [04/29/2017] [id number] 3Admin Note: FLUARIX 4Admin Note: 3 RDINJ 5Admin Note: #2 Medications acamprosate 333 mg oral delayed release tablet 1 tablet = 333 mg, By Mouth, 3 times a day, # 42 tablet, 4 Refills, Maintenance, 11/05/22 11:31:00 EDT, EC Tablet, [facility], Partial fill upon patient request if the prescription is for a schedule II opioid drug., 175, cm, 11/05/22 10:21:00... Start Date: 11/05/22 Stop Date: 01/14/23 Status: Ordered amLODIPine 5 mg oral tablet 1 tablet, By Mouth, Daily, ^1R1., # 30 tablet, 2 Refills, Maintenance, 06/02/23 8:00:00 EST, [facility], 175, cm, 03/22/23 6:50:00 EDT, Height, 77.5, kg, 03/20/23 11:30:00 EDT, Dry Weight Start Date: 06/02/23 Status: Ordered baclofen 10 mg oral tablet See Instructions, TAKE ONE TABLET BY MOUTH THREE TIMES A DAY ^1R1,1R2,1R4, # 90 tablet, Refills 5, Tot. Refills 5, Maintenance, 01/14/23 17:55:00 EDT, Instructions Replace Required Details, [facility], [facility], 175, cm... Start Date: 01/14/23 Status: Ordered BACLOFEN 10MG TABS BACLOFEN 10MG TABS, See Instructions, # 90 tablet, 0 Refills, Maintenance, TAKE ONE TABLET BY MOUTHTHREE TIMES A DAY ^1R1,1R2,1R4, 06/08/23 14:55:00 EST, 175, cm, 03/22/23 6:50:00 EDT, Height, 77.5,kg, 03/20/23 11:30:00 EDT, Dry Weight Start Date: 06/08/23 Status: Ordered calcium (as carbonate)-vitamin D 500 mg-400 intl units oral tablet 1 tablet, By Mouth, Daily, ^1R1., # 28 tablet, 0 Refills, Maintenance, 12/01/22 16:12:00 EDT, [facility], 28, 1 tablet By Mouth Daily,Instr:^1R1., [...] capsule, 6 Refills, Maintenance, 12/03/22 12:13:00 EDT, [facility], 175, cm, 12/03/22 11:50:00 EDT, Height, [...] Gm, 12 Refills, Maintenance, 03/24/23 10:52:00 EDT, [facility], 28, APPLY TOPICALLY TO AFFECTED AREA(S) [...] Gm, 11 Refills, Maintenance, 08/07/22 12:12:00 EST, [id number], 30, USE 1 SPRAY(S) INTO EACH NOSTRIL TWICE A DAY, 176, cm,08/07/22 11:37:00 EST, Height, 79.8, kg, 07/31/22 2... Start Date: 08/07/22 Status: Ordered folic acid 1 mg oral tablet 1, tablet, By Mouth, Daily, ^1R1., # 30 tablet, Refills 5, Maintenance, 03/20/23 16:22:00 EDT, Route to Pharmacy Electronically, [facility], 175, cm, 03/20/23 15:31:00 EDT, Height, 77.5, kg, 03/20/23 11:30:00 EDT, Dry Weight Start Date: 03/20/23 Status: Ordered furosemide 20 mg oral tablet 20 mg, 1, tablet, By Mouth, Every other day, # 30 tablet, Refills 3, Tot. Refills 3, Maintenance, 01/28/23 12:31:00 EDT, Route to Pharmacy Electronically, [facility], Partial fill upon patient request if the prescription is for a schedule II o... Start Date: 01/28/23 Status: Ordered gabapentin 300 mg oral capsule 300 mg, 1, capsule, By Mouth, Daily at bedtime, note dose/frequency change, # 90 capsule, Refills 4, Tot. Refills 4, Maintenance, 11/05/22 11:05:00 EDT, Route to Pharmacy Electronically, [facility], 175, cm, 11/05/22 10:21:00 EDT, Height, 88.9... Start Date: 11/05/22 Stop Date: 01/29/24 Status: Ordered hydrOXYzine hydrochloride 10 mg oral tablet 2 tablet, By Mouth, 2 times a day, PRN NEEDED FOR ANXIETY (VIAL), # 30 tablet, 3 Refills, Maintenance, 04/16/23 16:41:00 EDT, [facility], 175, cm, 03/22/23 6:50:00 EDT, Height, 77.5, kg, 03/20/23 11:30:00 EDT, Dry Weight Start Date: 04/16/23 Status: Ordered lactulose 10 gm/15 ml oral syrup 15 mL, By Mouth, 2 times a day, # 120 mL, 6 Refills, Maintenance, 02/26/23 10:11:00 EDT, [facility], 4, TAKE 15ML BY MOUTH TWO TIMES A DAY, 175, cm, 12/03/22 11:50:00 EDT, Height, 84, kg, 02/12/23 11:30:00 EDT, Dry Weight Start Date: 02/26/23 Status: Ordered magnesium oxide 400 mg oral tablet See Instructions, TAKE 1 TABLET BY MOUTH TWICE A DAY^1R1,1R4, # 60 tablet, 11 Refills, Maintenance,01/28/23 12:31:00 EDT, [facility], 175, cm, 12/03/22 11:50:00 EDT, Height, 88.9, kg, 10/21/22 20:41:00 EDT, Dry Weight Start Date: 01/28/23 Status: Ordered Melatonin 3 mg oral tablet 1 tablet, By Mouth, Daily at bedtime, PRN NEEDED FOR INSOMNIA (PACKAGE IN TRAY)^1R4, # 60 tablet, 5 Refills, Maintenance, 04/16/23 16:41:00 EDT, [facility], 60, TAKE 1 TABLET BY MOUTH [...] 02/26/23 10:11:00 EDT, Route to Pharmacy Electronically, [facility], 175, cm, 12/03/22 11:50:00 EDT, [...] 04/14/23 12:41:00 EDT, Route to Pharmacy Electronically, [facility], 175, cm, 03/22/23 6:50:00 EDT, Height, 77.5, kg, 03/20/23 11:30:00 EDT, Dry Weight Start Date: 04/14/23 Status: Ordered Tab-A-Jesse oral tablet 1 tablet, By Mouth, Daily, R1., # 30 tablet, 5 Refills, Maintenance, 05/06/23 19:16:00 EST, [facility], 30, TAKE 1 TABLET BY MOUTH ONCE A DAY^1R1, 175, cm, 03/22/23 6:50:00 EDT, Height, 77.5,kg, 03/20/23 11:30:00 EDT, Dry Weight Start Date: 05/06/23 Status: Ordered traZODone 50 mg oral tablet 2, tablet, By Mouth, Daily at bedtime, ^2R4., # 60 tablet, Refills 5, Maintenance, 02/26/23 10:11:00 EDT, Route to Pharmacy Electronically, [facility], 175, cm, 12/03/22 11:50:00 EDT, Height,84, [...] 02/09/23 23:18:00 EDT, Route to Pharmacy Electronically, [facility], 175, cm, 12/03/22 11:50:00 EDT, Height, 88.9, kg, 10/21/22 20:41:00 EDT, Dry Weight Start Date: 02/09/23 Status: Ordered Vitamin B6 50 mg oral tablet 1, tablet, By Mouth, Daily, R1., # 90 tablet, Refills 4, Maintenance, 11/16/22 13:39:00 EDT, Route to Pharmacy Electronically, [facility], 175, cm, 11/13/22 10:42:00 EDT, Height, [...] times a day, VIAL., # 60 tablet, 0 Refills, Maintenance, 06/08/23 14:59:00 EST, [facility], 175, cm, 03/22/23 6:50:00 EDT, Height, 77.5, kg, 03/20/23 11:30:00 EDT, Dry Weight Start Date: 06/08/23 Status: Ordered Problem List Condition Confirmation Course [...] Team Personnel Name: Alexandra Colmenares RN Position: [facility] ED RN W/OE and Tasks Member Role: Primary Care Nurse Name: Garima Manzano RN Position: [facility] RN Member Role: Primary Care Nurse Name: Malgorzata Marinelli RN Position: [facility] RN Member Role: Primary Care Nurse Name: Joyce Roach RN Position: [facility] ED RN W/OE and Tasks Member Role: Primary Care Nurse Name: Mary Suazo RN Position: [facility] RN Member Role: Primary Care Nurse Name: Andres Pressley RN Position: [facility] ED RN W/OE and Tasks Member Role: Primary Care Nurse Name: Jany Baig DO Position: [facility] Physician - Primary Care Member Role: PCP Address: Address: [address] [place] [address] Adult [place] [address]- Name: Kaye Payne RN Position: [facility] RN Member Role: Primary Care Nurse Name: Garima Hutchinson Position: [facility] RN Member Role: Primary Care Nurse Name: Malgorzata Austin Position: [facility] RN Member Role: Primary Care Nurse Name: Ibeth Adams RN Position: [facility] RN Member Role: Primary Care Nurse Name: Torrie Hernandez RN Position: [facility] OB RN Member Role: Primary Care Nurse Name: Gretchen Knutson RN Position: [facility] SN RN Member Role: Primary Care Nurse Name: Aislinn Mckee RN Position: [facility] RN Member Role: Primary Care Nurse Name: Ashley Mcelroy Position: [facility] RN Member Role: Primary Care Nurse Name: Ashok Kevin RN Position: [facility] RN Member Role: Primary Care Nurse Name: Cody Garcia Position: [facility] Associate Professional Member Role: Lifetime Consulting Provider Address: Address: [address] [place] [address]- Name: Paige Nascimento RN Position: [facility] RN Member Role: Primary Care Nurse Name: Ge Covarrubias RN Position: [facility] RN Member Role: Primary Care Nurse Name: Orin Elmore RN Position: [facility] ED RN W/OE and Tasks Member Role: Primary Care Nurse Name: Allegra Liu RN Position: [facility] AMB Nurse Member Role: Primary Care Nurse Name: Shayan Pandya MD Position: [facility] Renal MD Member Role: Lifetime Consulting Physician Address: Address: [address] [facility] [address] [facility], [place] [address]- Name: Darlene Rodrigez RN Position: [facility] RN Member Role: Primary Care Nurse Name: Dolores Can RN Position: [facility] RN Member Role: Primary Care Nurse Name: Ingrid Verdugo RN Position: [facility] RN Member Role: Primary Care Nurse Name: Monica Rowell RN Position: [facility] RN Member Role: Primary Care Nurse Name: Jimi Fitzpatrick RN Position: [facility] RN Member Role: Primary Care Nurse Care Team Related Persons Name: MARLEN CABEZAS Address: [address] [place] [address] Name: MARLEN CABEZAS Address: [address] [place] [address] Name: NICK CABEZAS Name: GEMA CABEZAS Address: [address] [place] [address]
--- OUTSIDE RECORDS SUMMARY | 2023-12-15 20:47 | XMS_ITS | Continuity of Care Document ---
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: [id number] 2Result Comment: [04/29/2017] [id number] 3Admin Note: FLUARIX 4Admin Note: 3 RDINJ 5Admin Note: #2 Medications acetaminophen 500 mg oral tablet 1 tablet, By Mouth, 4 times a day, PRN NEEDED FOR PAIN, MAX 4, PER DAY (VIAL., # 50 tablet, 11 Refills, Maintenance, 03/13/22 8:37:00 EDT, [facility], 175, cm, 01/06/22 10:34:00 EDT, Height, 78.3, kg, 12/26/21 19:05:00 EDT, Dry Weight Start Date: 03/13/22 Status: Ordered amLODIPine 5 mg oral tablet See Instructions, TAKE 1 TABLET BY MOUTH ONCE A DAY^1R1, # 30 tablet, 5 Refills, Maintenance, 05/13/22 16:24:00 EST, [facility], 175, cm, 04/09/22 15:34:00 EDT, Height, 78.3, kg, 12/26/21 19:05:00 EDT, Dry Weight Start Date: 05/13/22 Status: Ordered Co Q-10 100 mg oral capsule 1 capsule, By Mouth, 4 times a day, # 120 capsule, 5 Refills, Maintenance, 04/09/22 15:55:00 EDT, [facility], 175, cm, 04/09/22 15:34:00 EDT, Height, [...] Gm, 5 Refills, Maintenance, 02/18/22 10:02:00 EDT, [facility], 30, USE 1 SPRAY(S) INTO EACH NOSTRIL TWICE A DAY, 175, cm, 01/06/22 10:34:00 EDT, Height, 78.3, kg, 12/26/21 19... Start Date: 02/18/22 Status: Ordered folic acid 1 mg oral tablet 1 mg, 1, tablet, By Mouth, Daily, # 90 tablet, Refills 4, Tot. Refills 4, Maintenance, 10/27/21 10:40:00 EDT, Route to Pharmacy Electronically, [facility], Partial fill upon patient request if the prescription is for a schedule II opioid drug.... Start Date: 10/27/21 Stop Date: 01/20/23 Status: Ordered furosemide 20 mg oral tablet 1, tablet, By Mouth, Daily, note dose change, # 30 tablet, Refills 2, Tot. Refills 2, Maintenance, 04/09/22 15:53:00 EDT, [facility], [facility], cm, 04/09/22 15:34:00 EDT, Height, [...] 60 tablet, 11 Refills,Maintenance, 03/13/22 8:38:00 EDT, [facility], 175, cm, 01/06/22 10:34:00 EDT, Height, 78.3, kg, 12/26/21 19:05:00 EDT, Dry Weight Start Date: 03/13/22 Status: Ordered lactulose 10 gm/15 ml oral syrup See Instructions, TAKE 30ML BY MOUTH THREE TIMES DAILY NEEDED TO ACHEIVE 3-4 BOWL MOVEMENTS PER DAY, # 3,000 mL, 10 Refills, [facility], 30, TAKE 30ML BY MOUTH THREE TIMES DAILY NEEDED TO ACHEIVE 3-4 BOWL MOVEMENTS PER DAY, 174, cm, 02/12... Start Date: 07/02/21 Status: Ordered lidocaine 0.5% topical gel 1 application, Topically, 3 times a day, # 120 Gm, 0 Refills, Acute 12/30/22 17:23:00 EDT, 12/30/2216:23:00 EDT, Gel, [facility], Partial fill upon patient request if the prescription is fora schedule II opioid drug., 1 application Topically... Start Date: 12/30/21 Stop Date: 12/30/22 Status: Ordered Lidoderm 5% film 1 patch, Topically, Daily, remove patches after 12 hours NSAIDS contraindicated High dose tylenol contraindicated, # 30 patch, 5 Refills, Maintenance, 12/26/21 9:33:00 EDT, [facility], Partial fill upon patient request if the prescription i... Start Date: 12/26/21 Status: Ordered magnesium oxide 400 mg oral tablet 1 tablet, By Mouth, 2 times a day, # 60 tablet, 11 Refills, Maintenance, 03/13/22 8:37:00 EDT, [facility], 175, cm, 01/06/22 10:34:00 EDT, Height, 78.3, kg, 12/26/21 19:05:00 EDT, Dry Weight Start Date: 03/13/22 Status: Ordered Melatonin 3 mg oral tablet 1 tablet, By Mouth, Daily at bedtime, PRN NEEDED FOR INSOMNIA (PACKAGE IN TRAY)^1R4, # 60 tablet, 5 Refills, Maintenance, 06/12/22 18:11:00 EST, [facility], 60, TAKE 1 TABLET BY MOUTH [...] 04/09/22 16:00:00 EDT, Route to Pharmacy Electronically, [facility], Partial fill upon patient requestif the prescription is for a schedule II opioid remedios... Start Date: 04/09/22 Stop Date: 10/06/22 Status: Ordered Potassium Chloride (Eqv-K-Tab) 20 mEq oral tablet, extended release 2 tablet, By Mouth, Daily, # 180 tablet, 1 Refills, Maintenance, 05/13/22 9:48:00 EST, [facility], 175, cm, 04/09/22 15:34:00 EDT, Height, 78.3, kg, 12/26/21 19:05:00 EDT, Dry Weight Start Date: 05/13/22 Stop Date: 11/09/22 Status: Ordered pyridoxine 50 mg oral tablet 50 mg, 1, tablet, By Mouth, Daily, for 90 days, # 90 tablet, Refills 4, Tot. Refills 4, Acute 01/15/23 11:42:00 EDT, 10/22/21 11:42:00 EDT, Route to Pharmacy Electronically, [facility], Partial fill upon patient request if [...] 0 Refills, Maintenance, 03/12/22 17:21:00 EDT, Tablet, [facility] #[id number], Partial fill upon patient request if the prescription is for a schedule II opioid drug., 175, cm,... Start Date: 03/12/22 Status: Ordered Tab-A-Jesse oral tablet 1 tablet, By Mouth, Daily, # 90 tablet, 9 Refills, [facility], 28, TAKE 1 TABLET BY MOUTH ONCE A DAY, 174, cm, 07/14/21 8:16:00 EST, Height, 81, kg, 02/27/21 14:06:00 EDT, Dry Weight Start Date: 07/22/21 Status: Ordered traZODone 50 mg oral tablet 2 TO 3 TABLETS, By Mouth, Daily at bedtime, #28 VIAL)^2R4., # 90 tablet, Refills 5, Maintenance, 06/12/22 18:11:00 EST, Route to Pharmacy Electronically, [facility], 179, cm, 06/08/22 7:37:00EST, Height, 84, kg, 06/01/22 12:27:00 EST, Dry Weight Start Date: 06/12/22 Status: Ordered Vitamin B1 100 mg oral tablet 1, tablet, By Mouth, Daily, # 90 tablet, Refills 3, Maintenance, 03/13/22 8:37:00 EDT, Route to Pharmacy Electronically, [facility], 175, cm, 01/06/22 10:34:00 EDT, Height, 78.3, kg, 12/26/2218:05:00 EDT, Dry Weight Start Date: 03/13/22 Status: Ordered Xifaxan 550 mg oral tablet 1 tablet, By Mouth, 2 times a day, ^1R1,1R4., # 60 tablet, 1 Refills, Maintenance, 06/12/22 18:10:00 EST, [facility], 179, cm, 06/08/22 7:37:00 EST, Height, [...] Team Personnel Name: Alexandra Colmenares RN Position: [facility] ED RN W/OE and Tasks Member Role: Primary Care Nurse Name: Garima Manzano RN Position: [facility] RN Member Role: Primary Care Nurse Name: Malgorzata Marinelli RN Position: [facility] RN Member Role: Primary Care Nurse Name: Joyce Roach RN Position: [facility] RN Member Role: Primary Care Nurse Name: Mary Suazo RN Position: [facility] RN Member Role: Primary Care Nurse Name: Danyel Davis RN Position: [facility] RN Member Role: Primary Care Nurse Name: Yenny Bernstein Position: [facility] RN Member Role: Primary Care Nurse Name: Andres Pressley RN Position: [facility] RN Member Role: Primary Care Nurse Name: Jany Baig DO Position: [facility] Primary Care Physician Member Role: PCP Address: Address: [address] [place] [address] Adult & Pediatric Medicine [place], [place] [address] Name: Neida Ballard RN Position: [facility] RN Member Role: Primary Care Nurse Name: Kaye Payne RN Position: [facility] RN Member Role: Primary Care Nurse Name: Garima Hutchinson Position: [facility] RN Member Role: Primary Care Nurse Name: Malgorzata Austin Position: [facility] RN Member Role: Primary Care Nurse Name: Torrie Hernandez RN Position: [facility] OB RN Member Role: Primary Care Nurse Name: Gretchen Knutson RN Position: [facility] SN RN Member Role: Primary Care Nurse Name: Aislinn Mckee RN Position: [facility] RN Member Role: Primary Care Nurse Name: Ashley Mcelroy Position: [facility] RN Member Role: Primary Care Nurse Name: Cody Garcia Position: [facility] Associate Professional Member Role: Lifetime Consulting Provider Address: Address: [address] [place] [address]- Name: Ge Covarrubias RN Position: [facility] RN Member Role: Primary Care Nurse Name: Orin Elmore RN Position: [facility] ED RN W/OE and Tasks Member Role: Primary Care Nurse Name: Allegra Liu RN Position: [facility] PCO RN Member Role: Primary Care Nurse Name: Shayan Pandya MD Position: [facility] Renal MD Member Role: Lifetime Consulting Physician Address: Address: [address] [place] [address] [address] [facility] [place] [address]- Name: Darlene Rodrigez RN Position: [facility] RN Member Role: Primary Care Nurse Name: Kwan Mills RN Position: [facility] RN Member Role: Primary Care Nurse Name: Dolores Can RN Position: [facility] RN Member Role: Primary Care Nurse Name: Kim Rendon RN Position: [facility] RN Member Role: Primary Care Nurse Name: Monica Rowell RN Position: [facility] RN Member Role: Primary Care Nurse Care Team Related Persons Name: MARELN CABEZAS Address: home [address] [place] [address] Name: RAULITO MARLEN Address: home [address] [place] [address] Name: CAWU NICK Name: [id number] GEMA Address: home [address] [place] [id number]
--- OUTSIDE RECORDS SUMMARY | 2023-12-15 20:47 | XMS_ITS | Continuity of Care Document ---
Author Organization [facility] Address [address] [place] [address] [address] [place] [address]- Care Team Providers Care Gang Miner Name Role Phone Jany Baig DO Primary Care Physician ( [phone] Encounter [facility] Date(s): 06/11/22 - 07/11/22 [facility] [address] [place] [address]- Allergies, Adverse Reactions, Alerts Substance Reaction Severity [...] (oldterm) 08/02/12 Give n 1Result Comment: [facility]: [id number] 2Result Comment: [04/29/2017] [id number] 3Admin Note: FLUARIX 4Admin Note: 3 RDINJ 5Admin Note: #2 Medications acetaminophen 500 mg oral tablet 1 tablet, By Mouth, 4 times a day, PRN NEEDED FOR PAIN, MAX 4, PER DAY (VIAL., # 50 tablet, 11 Refills, Maintenance, 03/13/22 8:37:00 EDT, [facility], 175, cm, 01/06/22 10:34:00 EDT, Height, 78.3, kg, 12/26/21 19:05:00 EDT, Dry Weight Start Date: 03/13/22 Status: Ordered amLODIPine 5 mg oral tablet See Instructions, TAKE 1 TABLET BY MOUTH ONCE A DAY^1R1, # 30 tablet, 5 Refills, Maintenance, 05/13/22 16:24:00 EST, [facility], 175, cm, 04/09/22 15:34:00 EDT, Height, 78.3, kg, 12/26/21 19:05:00 EDT, Dry Weight Start Date: 05/13/22 Status: Ordered Co Q-10 100 mg oral capsule 1 capsule, By Mouth, 4 times a day, # 120 capsule, 5 Refills, Maintenance, 04/09/22 15:55:00 EDT, [facility], 175, cm, 04/09/22 15:34:00 EDT, Height, [...] Gm, 5 Refills, Maintenance, 02/18/22 10:02:00 EDT, [facility], 30, USE 1 SPRAY(S) INTO EACH NOSTRIL TWICE A DAY, 175, cm, 01/06/22 10:34:00 EDT, Height, 78.3, kg, 12/26/21 19... Start Date: 02/18/22 Status: Ordered folic acid 1 mg oral tablet 1 mg, 1, tablet, By Mouth, Daily, # 90 tablet, Refills 4, Tot. Refills 4, Maintenance, 10/27/21 10:40:00 EDT, Route to Pharmacy Electronically, [facility], Partial fill upon patient request if the prescription is for a schedule II opioid drug.... Start Date: 10/27/21 Stop Date: 01/20/23 Status: Ordered furosemide 20 mg oral tablet 1, tablet, By Mouth, Daily, note dose change, # 30 tablet, Refills 2, Tot. Refills 2, Maintenance, 04/09/22 15:53:00 EDT, Route to Pharmacy Electronically, [facility], 175, cm, 04/09/22 15:34:00 EDT, Height, [...] 60 tablet, 11 Refills,Maintenance, 03/13/22 8:38:00 EDT, [facility], 175, cm, 01/06/22 10:34:00 EDT, Height, 78.3, kg, 12/26/21 19:05:00 EDT, Dry Weight Start Date: 03/13/22 Status: Ordered lactulose 10 gm/15 ml oral syrup See Instructions, TAKE 30ML BY MOUTH THREE TIMES DAILY NEEDED TO ACHEIVE 3-4 BOWL MOVEMENTS PER DAY, # 3,000 mL, 10 Refills, [facility], 30, TAKE 30ML BY MOUTH THREE TIMES DAILY NEEDED TO ACHEIVE 3-4 BOWL MOVEMENTS PER DAY, 174, cm, 02/12... Start Date: 07/02/21 Status: Ordered lidocaine 0.5% topical gel 1 application, Topically, 3 times a day, # 120 Gm, 0 Refills, Acute 12/30/22 17:23:00 EDT, 12/30/2216:23:00 EDT, Gel, [facility], Partial fill upon patient request if the prescription is fora schedule II opioid drug., 1 application Topically... Start Date: 12/30/21 Stop Date: 12/30/22 Status: Ordered Lidoderm 5% film 1 patch, Topically, Daily, remove patches after 12 hours NSAIDS contraindicated High dose tylenol contraindicated, # 30 patch, 5 Refills, Maintenance, 12/26/21 9:33:00 EDT, [facility], Partial fill upon patient request if the prescription i... Start Date: 12/26/21 Status: Ordered magnesium oxide 400 mg oral tablet 1 tablet, By Mouth, 2 times a day, # 60 tablet, 11 Refills, Maintenance, 03/13/22 8:37:00 EDT, [facility], 175, cm, 01/06/22 10:34:00 EDT, Height, 78.3, kg, 12/26/21 19:05:00 EDT, Dry Weight Start Date: 03/13/22 Status: Ordered Melatonin 3 mg oral tablet 1 tablet, By Mouth, Daily at bedtime, PRN NEEDED FOR INSOMNIA (PACKAGE IN TRAY)^1R4, # 60 tablet, 5 Refills, Maintenance, 06/12/22 18:11:00 EST, [facility], 60, TAKE 1 TABLET [...] 04/09/22 16:00:00 EDT, Route to Pharmacy Electronically, [facility], Partial fill upon patient requestif the prescription is for a schedule II opioid remedios... Start Date: 04/09/22 Stop Date: 10/06/22 Status: Ordered Potassium Chloride (Eqv-K-Tab) 20 mEq oral tablet, extended release 2 tablet, By Mouth, Daily, # 180 tablet, 1 Refills, Maintenance, 05/13/22 9:48:00 EST, [facility], 175, cm, 04/09/22 15:34:00 EDT, Height, 78.3, kg, 12/26/21 19:05:00 EDT, Dry Weight Start Date: 05/13/22 Stop Date: 11/09/22 Status: Ordered pyridoxine 50 mg oral tablet 50 mg, 1, tablet, By Mouth, Daily, for 90 days, # 90 tablet, Refills 4, Tot. Refills 4, Acute 01/15/23 11:42:00 EDT, 10/22/21 11:42:00 EDT, Route to Pharmacy Electronically, [facility], Partial fill upon patient request if [...] 0 Refills, Maintenance, 03/12/22 17:21:00 EDT, Tablet, [facility] #[id number], Partial fill upon patient request if the prescription is for a schedule II opioid drug., 175, cm,... Start Date: 03/12/22 Status: Ordered Tab-A-Jesse oral tablet 1 tablet, By Mouth, Daily, # 90 tablet, 9 Refills, [facility], 28, TAKE 1 TABLET BY MOUTH ONCE A DAY, 174, cm, 07/14/21 8:16:00 EST, Height, 81, kg, 02/27/21 14:06:00 EDT, Dry Weight Start Date: 07/22/21 Status: Ordered traZODone 50 mg oral tablet 2 TO 3 TABLETS, By Mouth, Daily at bedtime, #28 VIAL)^2R4., # 90 tablet, Refills 5, Maintenance, 06/12/22 18:11:00 EST, Route to Pharmacy Electronically, [facility], 179, cm, 06/08/22 7:37:00EST, Height, 84, kg, 06/01/22 12:27:00 EST, Dry Weight Start Date: 06/12/22 Status: Ordered Vitamin B1 100 mg oral tablet 1, tablet, By Mouth, Daily, # 90 tablet, Refills 3, Maintenance, 03/13/22 8:37:00 EDT, Route to Pharmacy Electronically, [facility], 175, cm, 01/06/22 10:34:00 EDT, Height, 78.3, kg, 12/26/2218:05:00 EDT, Dry Weight Start Date: 03/13/22 Status: Ordered Xifaxan 550 mg oral tablet 1 tablet, By Mouth, 2 times a day, ^1R1,1R4., # 60 tablet, 1 Refills, Maintenance, 06/12/22 18:10:00 EST, [facility], 179, cm, 06/08/22 7:37:00 EST, Height, [...] Team Personnel Name: Alexandra Colmenares RN Position: [facility] ED RN W/OE and Tasks Member Role: Primary Care Nurse Name: Garima Manzano RN Position: [facility] RN Member Role: Primary Care Nurse Name: Malgorzata Marinelli RN Position: [facility] RN Member Role: Primary Care Nurse Name: Joyce Roach RN Position: [facility] RN Member Role: Primary Care Nurse Name: Mary Suazo RN Position: [facility] RN Member Role: Primary Care Nurse Name: Danyel Davis RN Position: [facility] RN Member Role: Primary Care Nurse Name: Yenny Bernstein Position: [facility] RN Member Role: Primary Care Nurse Name: Andres Pressley RN Position: [facility] RN Member Role: Primary Care Nurse Name: Jany Baig DO Position: [facility] Primary Care Physician Member Role: PCP Address: Address: [address] [place] [address] Adult & [place] [address]- Name: Neida Ballard RN Position: [facility] RN Member Role: Primary Care Nurse Name: Kaye Payne RN [facility]: [facility] [...] Role: Lifetime Consulting Provider Address: Address: [address] [place] [address] Name: Ge Covarrubias RN Position: [facility] RN Member Role: Primary Care Nurse Name: Orin Elmore RN Position: [facility] ED RN W/OE and Tasks Member Role: Primary Care Nurse Name: Allegra Liu RN Position: [facility] PCO RN Member Role: Primary Care Nurse Name: Shayan Pandya MD Position: [facility] Renal MD Member Role: Lifetime Consulting Physician Address: Address: [address] [place] [address] [address] [facility] [address] Name: Darlene Rodrigez RN Position: [facility] RN Member Role: Primary Care Nurse Name: Kwan Mills RN Position: [facility] RN Member Role: Primary Care Nurse Name: Dolores Can RN Position: [facility] RN Member Role: Primary Care Nurse Name: Kim Rendon RN Position: [facility] RN Member Role: Primary Care Nurse Name: Monica Rowell RN Position: [facility] RN Member Role: Primary Care Nurse Care Team Related Persons Name: MARLEN CABEZAS Address: home [address] [place] [id number] Name: MARLEN CABEZAS Address: home [address] [place] [id number] Name: RAULITO NICK Name: ACWUMOSESGEMA Address: home [address] [place] [address]
--- OUTSIDE RECORDS SUMMARY | 2023-12-15 20:47 | XMS_ITS | Continuity of Care Document ---
Author Organization [facility] Address [address] [place] [address]- Care Team Providers Care Security Police Name Role Phone Jany Baig DO Primary Care Physician Encounter [facility] Date(s): 06/22/22 - 07/22/22 [facility] [address] [place] [address]- Allergies, Adverse Reactions, Alerts Substance Reaction Severity [...] (oldterm) 08/02/12 Give n 1Result Comment: [facility]: [id number] 2Result Comment: [04/29/2017] [id number] 3Admin Note: FLUARIX 4Admin Note: 3 RDINJ 5Admin Note: #2 Medications acetaminophen 500 mg oral tablet 1 tablet, By Mouth, 4 times a day, PRN NEEDED FOR PAIN, MAX 4, PER DAY (VIAL., # 50 tablet, 11 Refills, Maintenance, 03/13/22 8:37:00 EDT, [facility], 175, cm, 01/06/22 10:34:00 EDT, Height, 78.3, kg, 12/26/21 19:05:00 EDT, Dry Weight Start Date: 03/13/22 Status: Ordered amLODIPine 5 mg oral tablet See Instructions, TAKE 1 TABLET BY MOUTH ONCE A DAY^1R1, # 30 tablet, 5 Refills, Maintenance, 05/13/22 16:24:00 EST, [facility], 175, cm, 04/09/22 15:34:00 EDT, Height, 78.3, kg, 12/26/21 19:05:00 EDT, Dry Weight Start Date: 05/13/22 Status: Ordered Co Q-10 100 mg oral capsule 1 capsule, By Mouth, 4 times a day, # 120 capsule, 5 Refills, Maintenance, 04/09/22 15:55:00 EDT, [facility], 175, cm, 04/09/22 15:34:00 EDT, Height, [...] Refills, Maintenance, 02/18/22 10:02:00 [facility], USE 1 SPRAY(S) INTO EACH NOSTRIL TWICE A DAY, 175, cm, 01/06/22 10:34:00 EDT, Height, 78.3, kg, 12/26/21 19... Start Date: 02/18/22 Status: Ordered folic acid 1 mg oral tablet 1 mg, 1, tablet, By Mouth, Daily, # 90 tablet, Refills 4, Tot. Refills 4, Maintenance, 10/27/21 10:40:00 EDT, Route to Pharmacy Electronically, [facility], Partial fill upon patient request if the prescription is for a schedule II opioid drug.... Start Date: 10/27/21 Stop Date: 01/20/23 Status: Ordered furosemide 20 mg oral tablet 1, tablet, By Mouth, Daily, R1., # 30 tablet, Refills 5, Tot. Refills 5, Maintenance, 07/18/22 7:52:00 EST, Route to Pharmacy Electronically, [facility], 179, cm, 07/01/22 13:29:00 EST, Height, [...] 60 tablet, 11 Refills,Maintenance, 03/13/22 8:38:00 EDT, [facility], 175, cm, 01/06/22 10:34:00 EDT, Height, 78.3, kg, 12/26/21 19:05:00 EDT, Dry Weight Start Date: 03/13/22 Status: Ordered lactulose 10 gm/15 ml oral syrup See Instructions, TAKE 30ML BY MOUTH THREE TIMES DAILY NEEDED TO ACHEIVE 3-4 BOWL MOVEMENTS PER DAY, # 3,000 mL, 10 Refills, [facility], 30, TAKE 30ML BY MOUTH THREE TIMES DAILY NEEDED TO ACHEIVE 3-4 BOWL MOVEMENTS PER DAY, 174, cm, 02/12... Start Date: 07/02/21 Status: Ordered lidocaine 0.5% topical gel 1 application, Topically, 3 times a day, # 120 Gm, 0 Refills, Acute 12/30/22 17:23:00 EDT, 12/30/2216:23:00 EDT, Gel, [facility], Partial fill upon patient request if the prescription is fora schedule II opioid drug., 1 application Topically... Start Date: 12/30/21 Stop Date: 12/30/22 Status: Ordered Lidoderm 5% film 1 patch, Topically, Daily, remove patches after 12 hours NSAIDS contraindicated High dose tylenol contraindicated, # 30 patch, 5 Refills, Maintenance, 12/26/21 9:33:00 EDT, [facility], Partial fill upon patient request if the prescription i... Start Date: 12/26/21 Status: Ordered magnesium oxide 400 mg oral tablet 1 tablet, By Mouth, 2 times a day, # 60 tablet, 11 Refills, Maintenance, 03/13/22 8:37:00 EDT, [facility], 175, cm, 01/06/22 10:34:00 EDT, Height, 78.3, kg, 12/26/21 19:05:00 EDT, Dry Weight Start Date: 03/13/22 Status: Ordered Melatonin 3 mg oral tablet 1 tablet, By Mouth, Daily at bedtime, PRN NEEDED FOR INSOMNIA (PACKAGE IN TRAY)^1R4, # 60 tablet, 5 Refills, Maintenance, 06/12/22 18:11:00 EST, [facility], 60, TAKE 1 TABLET BY MOUTH [...] 04/09/22 16:00:00 EDT, Route to Pharmacy Electronically, [facility], Partial fill upon patient requestif the prescription is for a schedule II opioid remedios... Start Date: 04/09/22 Stop Date: 10/06/22 Status: Ordered Potassium Chloride (Eqv-K-Tab) 20 mEq oral tablet, extended release 2 tablet, By Mouth, Daily, # 180 tablet, 1 Refills, Maintenance, 05/13/22 9:48:00 EST, [facility], 175, cm, 04/09/22 15:34:00 EDT, Height, 78.3, kg, 12/26/21 19:05:00 EDT, Dry Weight Start Date: 05/13/22 Stop Date: 11/09/22 Status: Ordered pyridoxine 50 mg oral tablet 50 mg, 1, tablet, By Mouth, Daily, for 90 days, # 90 tablet, Refills 4, Tot. Refills 4, Acute 01/15/23 11:42:00 EDT, 10/22/21 11:42:00 EDT, Route to Pharmacy Electronically, [facility], Partial fill upon patient request if [...] 0 Refills, Maintenance, 03/12/22 17:21:00 EDT, Tablet, [facility]/pharmacy #[id number], Partial fill upon patient request if the prescription is for a schedule II opioid drug., 175, cm,... Start Date: 03/12/22 Status: Ordered Tab-A-Jesse oral tablet 1 tablet, By Mouth, Daily, # 90 tablet, 9 Refills, [facility], 28, TAKE 1 TABLET BY MOUTH ONCE A DAY, 174, cm, 07/14/21 8:16:00 EST, Height, 81, kg, 02/27/21 14:06:00 EDT, Dry Weight Start Date: 07/22/21 Status: Ordered traZODone 50 mg oral tablet 2 TO 3 TABLETS, By Mouth, Daily at bedtime, #28 VIAL)^2R4., # 90 tablet, Refills 5, Maintenance, 06/12/22 18:11:00 EST, Route to Pharmacy Electronically, [facility], 179, cm, 06/08/22 7:37:00EST, Height, 84, kg, 06/01/22 12:27:00 EST, Dry Weight Start Date: 06/12/22 Status: Ordered Vitamin B1 100 mg oral tablet 1, tablet, By Mouth, Daily, # 90 tablet, Refills 3, Maintenance, 03/13/22 8:37:00 EDT, Route to Pharmacy Electronically, [facility], 175, cm, 01/06/22 10:34:00 EDT, Height, 78.3, kg, 12/26/2218:05:00 EDT, Dry Weight Start Date: 03/13/22 Status: Ordered Xifaxan 550 mg oral tablet 1 tablet, By Mouth, 2 times a day, ^1R1,1R4., # 60 tablet, 1 Refills, Maintenance, 06/12/22 18:10:00 EST, [facility], 179, cm, 06/08/22 7:37:00 EST, Height, [...] Care team information Care Team Personnel Name: Darrian RNAlexandra Position: [facility] ED RN W/OE and Tasks Member Role: Primary Care Nurse Name: Garima Manzano RN Position: [facility] RN Member Role: Primary Care Nurse Name: Malgorzata Marinelli RN Position: [facility] RN Member Role: Primary Care Nurse Name: Joyce Roach RN Position: [facility] RN Member Role: Primary Care Nurse Name: Mary Suazo RN Position: [facility] RN Member Role: Primary Care Nurse Name: Danyel Davis RN Position: [facility] RN Member Role: Primary Care Nurse Name: Andres Pressley RN Position: [facility] RN Member Role: Primary Care Nurse Name: Jany Baig DO Position: [facility] Primary Care Physician Member Role: PCP Address: Address: [address] [place] [address] [facility] [address] Name: Neida Ballard RN Position: [facility] RN Member Role: Primary Care Nurse Name: Kaye Payne RN Position: [facility] RN Member Role: Primary Care Nurse Name: Garima Hutchinson Position: [facility] RN Member Role: Primary Care Nurse Name: Malgorzata Austin Position: [facility] RN Member Role: Primary Care Nurse Name: Torrie Hernandez RN Position: [facility] OB RN Member Role: Primary Care Nurse Name: Gretchen Knutson RN Position: [facility] SN RN Member Role: Primary Care Nurse Name: Aislinn Mckee RN Position: [facility] RN Member Role: Primary Care Nurse Name: Ashley Mcelroy Position: [facility] RN Member Role: Primary Care Nurse Name: Cody Garcia Position: [facility] Associate Professional Member Role: Lifetime Consulting Provider Address: Address: [address] [place] [id number]- Name: Ge Covarrubias RN Position: [facility] RN Member Role: Primary Care Nurse Name: Orin Elmore RN Position: [facility] ED RN W/OE and Tasks Member Role: Primary Care Nurse Name: Allegra Liu RN Position: [facility] PCO RN Member Role: Primary Care Nurse Name: Shayan Pandya MD Position: [facility] Renal MD Member Role: Lifetime Consulting Physician Address: Address: [address] [place] [address] [address] [facility] [place], [place] [address]- Name: Darlene Rodrigez RN Position: [facility] RN Member Role: Primary Care Nurse Name: Kwan Mills RN Position: [facility] RN Member Role: Primary Care Nurse Name: Dolores Can RN Position: [facility] RN Member Role: Primary Care Nurse Name: Kim Rendon RN Position: [facility] RN Member Role: Primary Care Nurse Name: Monica Rowell RN Position: [facility] RN Member Role: Primary Care Nurse Care Team Related Persons Name: CAWUMARLEN Address: home [address] [place] [address] Name: MARLEN CABEZAS Address: home [address] [place] [address] Name: NICK CABEZAS Name: GEMA CABEZAS Address: home [address] [place] [address]
--- OUTSIDE RECORDS SUMMARY | 2023-12-15 20:47 | XMS_ITS | Continuity of Care Document ---
Author Organization [facility] Address [address] [place] [address]- Care Team Providers Care Channel Development Manager Name Role Phone Jany Baig DO Primary Care Physician Encounter [facility] Date(s): 11/13/22 - 12/13/22 [facility] [address] [place], [place] [address] Allergies, Adverse Reactions, Alerts [...] Comment: [facility]: [id number] 2Result Comment: [04/29/2017] [id number] 3Admin Note: FLUARIX 4Admin Note: 3 RDINJ 5Admin Note: #2 Medications acamprosate 333 mg oral delayed release tablet 1 tablet = 333 mg, By Mouth, 3 times a day, # 42 tablet, 4 Refills, Maintenance, 11/05/22 11:31:00 EDT, [facility], Partial fill upon patient request if the prescription is for a schedule II opioid drug., 175, cm, 11/05/22 10:21:00... Start Date: 11/05/22 Stop Date: 01/14/23 Status: Ordered amLODIPine 5 mg oral tablet 1 tablet, By Mouth, Daily, ^1R1., # 30 tablet, 2 Refills, Maintenance, 10/06/22 4:58:00 EDT, [facility], 176, cm, 09/07/22 8:56:00 EDT, Height, 82.1, kg, 09/07/22 8:59:00 EDT, Dry Weight Start Date: 10/06/22 Status: Ordered baclofen 10 mg oral tablet See Instructions, TAKE 1 TABLET BY MOUTH THREE TIMES DAILY, # 90 tablet, Refills 0, Tot. Refills 0,Maintenance, 12/01/22 16:12:00 EDT, Instructions Replace Required Details, [facility], [facility], cm, 11/13/22 10:4... Start Date: 12/01/22 Status: Ordered calcium (as carbonate)-vitamin D 500 mg-400 intl units oral tablet 1 tablet, By Mouth, Daily, ^1R1., # 28 tablet, 0 Refills, Maintenance, 12/01/22 16:12:00 EDT, [facility], 28, 1 tablet By Mouth Daily,Instr:^1R1., [...] capsule, 6 Refills, Maintenance, 12/03/22 12:13:00 EDT, [facility], 175, cm, [...] Gm, 11 Refills, Maintenance, 08/07/22 12:12:00 EST, [facility]/pharmacy #[id number], 30, USE 1 SPRAY(S) INTO EACH NOSTRIL TWICE A DAY, 176, cm,08/07/22 11:37:00 EST, Height, 79.8, kg, 07/31/22 2... Start Date: 08/07/22 Status: Ordered folic acid 1 mg oral tablet 1, tablet, By Mouth, Daily, R1., # 30 tablet, Refills 5, Tot. Refills 5, Maintenance, 10/06/22 4:59:00 EDT, Route to Pharmacy Electronically, [facility], 176, cm, 09/07/22 8:56:00 EDT, Height, [...] 09/03/22 14:50:00 EDT, Route to Pharmacy Electronically, [facility], 169, cm, 09/03/22 14:21:00 EDT, Height, 69, kg, 08/16/22 1:04:00 EST, Dry Weight Start Date: 09/03/22 Status: Ordered gabapentin 300 mg oral capsule 300 mg, 1, capsule, By Mouth, Daily at bedtime, note dose/frequency change, # 90 capsule, Refills 4, Tot. Refills 4, Maintenance, 11/05/22 11:05:00 EDT, Route to Pharmacy Electronically, [facility], 175, cm, 11/05/22 10:21:00 EDT, Height, 88.9... Start Date: 11/05/22 Stop Date: 01/29/24 Status: Ordered hydrOXYzine hydrochloride 10 mg oral tablet 2 tablet, By Mouth, 2 times a day, PRN NEEDED FOR ANXIETY (VIAL), # 30 tablet, 3 Refills, Maintenance, 09/24/22 17:01:00 EDT, [facility], 176, cm, 09/07/22 8:56:00 EDT, Height, 82.1, kg, 09/07/22 8:59:00 EDT, Dry Weight Start Date: 09/24/22 Status: Ordered lactulose 10 gm/15 ml oral syrup 15 mL, By Mouth, 2 times a day, # 120 mL, 6 Refills, Maintenance, 09/22/22 12:15:00 EDT, [facility], 4, TAKE 15ML BY MOUTH TWO TIMES A DAY, 176, cm, 09/07/22 8:56:00 EDT, Height, 82.1, kg, 09/07/22 8:59:00 EDT, Dry Weight Start Date: 09/22/22 Status: Ordered Lidoderm 5% film 1 patch, Topically, Daily, remove patches after 12 hours NSAIDS contraindicated High dose tylenol contraindicated remove patches after 12 hours Nueropathy, # 30 patch, 5 Refills, Maintenance, 11/05/22 11:04:00 EDT, [facility], Partial klaudia... Start Date: 11/05/22 Status: Ordered Melatonin 3 mg oral tablet 1 tablet, By Mouth, Daily at bedtime, PRN NEEDED FOR INSOMNIA (PACKAGE IN TRAY)^1R4, # 60 tablet, 5 Refills, Maintenance, 06/12/22 18:11:00 EST, [facility], 60, TAKE 1 TABLET [...] 09/03/22 14:53:00 EDT, Route to Pharmacy Electronically, [facility], Partial fill upon patient request if [...] 11/05/22 11:31:00 EDT, Route to Pharmacy Electronically, [facility], Partial fill upon patient request if the prescription is for a schedule II opioid drug... Start Date: 11/05/22 Status: Ordered Tab-A-Jesse oral tablet 1 tablet, By Mouth, Daily, # 90 tablet, 1 Refills, 12/01/22 12:59:00 EDT, [facility], 28, 1tablet By Mouth Daily, 175, cm, 11/13/22 10:42:00 EDT, Height, 88.9, kg, 10/21/22 20:41:00 EDT, DryWeight Start Date: 12/01/22 Status: Ordered traZODone 50 mg oral tablet 2 tablets, By Mouth, Daily at bedtime, # 60 each, Refills 5, Tot. Refills 5, Maintenance, 09/03/22 17:13:00 EDT, Route to Pharmacy Electronically, [facility], 169, cm, 09/03/22 14:21:00 EDT, Height, [...] 03/13/22 8:37:00 EDT, Route to Pharmacy Electronically, [facility], 175, cm, 01/06/22 10:34:00 EDT, Height, 78.3, kg, 12/26/2218:05:00 EDT, Dry Weight Start Date: 03/13/22 Status: Ordered Vitamin B6 50 mg oral tablet 1, tablet, By Mouth, Daily, R1., # 90 tablet, Refills 4, Maintenance, 11/16/22 13:39:00 EDT, Route to Pharmacy Electronically, [facility], 175, cm, 11/13/22 10:42:00 EDT, Height, 88.9, kg, 10/21/22 20:41:00 EDT, Dry Weight Start Date: 11/16/22 Status: Ordered Voltaren 1% topical gel 1 application, Topically, 4 times a day, PRN for pain, # 100 Gm, 0 Refills, Maintenance, 12/01/22 16:12:00 EDT, Gel, [facility], Partial fill upon patient request if [...] tablet, 3 Refills, Maintenance, 10/01/22 15:19:00 EDT, [facility], 176, cm, 09/07/22 8:56:00 EDT, Height, [...] Primary Care Member Role: PCP Address: Address: [address] [place] [address] Adult [facility] [place] [address]- Name: Neida Ballard RN [facility] [...] Member Role: Lifetime Consulting Provider Address: Address: [address] [place] [address]- Name: Ge Covarrubias RN Position: [facility] RN Member Role: Primary Care Nurse Name: Orin Elmore RN Position: [facility] ED RN W/OE and Tasks Member Role: Primary Care Nurse Name: Allegra Liu RN Position: [facility] AMB Nurse Member Role: Primary Care Nurse Name: Shayan Pandya MD Position: [facility] Renal MD Member Role: Lifetime Consulting Physician Address: Address: [address] [place] [address] [address] [facility] [place] [address]- Name: Darlene Rodrigez RN Position: [facility] RN Member Role: Primary Care Nurse Name: Kwan Mills RN Position: S RN Member Role: Primary Care Nurse Name: Dolores Can RN Position: [facility] RN Member Role: Primary Care Nurse Name: Kim Rendon RN Position: [facility] RN Member Role: Primary Care Nurse Name: Monica Rowell RN Position: [facility] RN Member Role: Primary Care Nurse Name: Jimi Fitzpatrick RN Position: [facility] RN Member Role: Primary Care Nurse Care Team Related Persons Name: MARLEN CABEZAS Address: [place] [address] Name: MARLEN CABEZAS Address: [place] [address] Name: NICK CABEZAS Name: GEMA CABEZAS Address: [place] [address]
--- OUTSIDE RECORDS SUMMARY | 2023-12-15 20:47 | XMS_ITS | Continuity of Care Document ---
Author Organization [facility] Address [address] [place] [address]- Care Team Providers Care Night Time Babysitter Name Role Phone Jany Baig DO Primary Care Physician Encounter [facility] Date(s): 03/23/23 - 04/22/23 [facility] [address] [place], [place] [address] [place] Allergies, Adverse Reactions, Alerts Substance Reaction Severity [...] acel (oldterm) 08/02/12 Give n 1Result Comment: [facility]: [id number] 2Result Comment: [04/29/2017] [id number] 3Admin Note: FLUARIX 4Admin Note: 3 RDINJ 5Admin Note: #2 Medications acamprosate 333 mg oral delayed release tablet 1 tablet = 333 mg, By Mouth, 3 times a day, # 42 tablet, 4 Refills, Maintenance, 11/05/22 11:31:00 EDT, EC Tablet, [facility], Partial fill upon patient request if the prescription is for a schedule II opioid drug., 175, cm, 11/05/22 10:21:00... Start Date: 11/05/22 Stop Date: 01/14/23 Status: Ordered amLODIPine 5 mg oral tablet 1 tablet, By Mouth, Daily, ^1R1., # 30 tablet, 5 Refills, Maintenance, 12/22/22 7:20:00 EDT, [facility], 175, cm, 12/03/22 11:50:00 EDT, Height, 88.9, kg, 10/21/22 20:41:00 EDT, Dry Weight Start Date: 12/22/22 Status: Ordered baclofen 10 mg oral tablet See Instructions, TAKE ONE TABLET BY MOUTH THREE TIMES A DAY ^1R1,1R2,1R4, # 90 tablet, Refills 5, Tot. Refills 5, Maintenance, 01/14/23 17:55:00 EDT, Instructions Replace Required Details, Route to Pharmacy Electronically, [facility], 175, cm... Start Date: 01/14/23 Status: Ordered calcium (as carbonate)-vitamin D 500 mg-400 intl units oral tablet 1 tablet, By Mouth, Daily, ^1R1., # 28 tablet, 0 Refills, Maintenance, 12/01/22 16:12:00 EDT, [facility], 28, 1 tablet By Mouth Daily,Instr:^1R1., [...] capsule, 6 Refills, Maintenance, 12/03/22 12:13:00 EDT, [facility], 175, cm, 12/03/22 11:50:00 EDT, Height, [...] Gm, 12 Refills, Maintenance, 03/24/23 10:52:00 EDT, [facility], 28, APPLY TOPICALLY TO AFFECTED [...] 05/03/23 12:01:00 EST, 03/22/23 12:01:00 EDT, Tablet, [facility]/pharmacy #[id number], Partial fill upon patient request [...] Gm, 11 Refills, Maintenance, 08/07/22 12:12:00 EST, [facility]/pharmacy #[id number], 30, USE 1 SPRAY(S) INTO EACH NOSTRIL TWICE A DAY, 176, cm,08/07/22 11:37:00 EST, Height, 79.8, kg, 07/31/22 2... Start Date: 08/07/22 Status: Ordered folic acid 1 mg oral tablet 1, tablet, By Mouth, Daily, ^1R1., # 30 tablet, Refills 5, Maintenance, 03/20/23 16:22:00 EDT, [facility], 175, cm, 03/20/23 15:31:00 EDT, Height, 77.5, kg, 03/20/23 11:30:00 EDT, Dry Weight Start Date: 03/20/23 Status: Ordered furosemide 20 mg oral tablet 20 mg, 1, tablet, By Mouth, Every other day, # 30 tablet, Refills 3, Tot. Refills 3, Maintenance, 01/28/23 12:31:00 EDT, Route to Pharmacy Electronically, [facility], Partial fill upon patient request if the prescription is for a schedule II o... Start Date: 01/28/23 Status: Ordered gabapentin 300 mg oral capsule 300 mg, 1, capsule, By Mouth, Daily at bedtime, note dose/frequency change, # 90 capsule, Refills 4, Tot. Refills 4, Maintenance, 11/05/22 11:05:00 EDT, [facility], [facility], 175, cm, 11/05/22 10:21:00 EDT, Height, 88.9... Start Date: 11/05/22 Stop Date: 01/29/24 Status: Ordered hydrOXYzine hydrochloride 10 mg oral tablet 2 tablet, By Mouth, 2 times a day, PRN NEEDED FOR ANXIETY (VIAL), # 30 tablet, 3 Refills, Maintenance, 04/16/23 16:41:00 EDT, [facility], 175, cm, 03/22/23 6:50:00 EDT, Height, 77.5, kg, 03/20/23 11:30:00 EDT, Dry Weight Start Date: 04/16/23 Status: Ordered lactulose 10 gm/15 ml oral syrup 15 mL, By Mouth, 2 times a day, # 120 mL, 6 Refills, Maintenance, 02/26/23 10:11:00 EDT, [facility], 4, TAKE 15ML BY MOUTH TWO TIMES A DAY, 175, cm, 12/03/22 11:50:00 EDT, Height, 84, kg, 02/12/23 11:30:00 EDT, Dry Weight Start Date: 02/26/23 Status: Ordered magnesium oxide 400 mg oral tablet See Instructions, TAKE 1 TABLET BY MOUTH TWICE A DAY^1R1,1R4, # 60 tablet, 11 Refills, Maintenance,01/28/23 12:31:00 EDT, [facility], 175, cm, 12/03/22 11:50:00 EDT, Height, 88.9, kg, 10/21/22 20:41:00 EDT, Dry Weight Start Date: 01/28/23 Status: Ordered Melatonin 3 mg oral tablet 1 tablet, By Mouth, Daily at bedtime, PRN NEEDED FOR INSOMNIA (PACKAGE IN TRAY)^1R4, # 60 tablet, 5 Refills, Maintenance, 04/16/23 16:41:00 EDT, [facility], 60, TAKE 1 TABLET BY MOUTH [...] Electronically, [facility], 175, cm, 12/03/22 11:50:00 EDT, Height, [...] 05/03/23 12:02:00 EST, 03/22/23 12:02:00 EDT, Capsule, [facility]/pharmacy #[id number], Partial fill upon patient request if the prescription is for a schedule II opioid drug., 175, c... Start Date: 03/22/23 Stop Date: 05/03/23 Status: Ordered spironolactone 25 mg oral tablet 1, tablet, By Mouth, Daily, ^1R2., # 30 tablet, Refills 5, Tot. Refills 5, Maintenance, 04/14/23 12:41:00 EDT, Route to Pharmacy Electronically, [facility], 175, cm, 03/22/23 6:50:00 EDT, Height, 77.5, kg, 03/20/23 11:30:00 EDT, Dry Weight Start Date: 04/14/23 Status: Ordered Tab-A-Jesse oral tablet 1 tablet, By Mouth, Daily, # 90 tablet, 1 Refills, 12/01/22 12:59:00 EDT, [facility], 28, 1tablet By Mouth Daily, 175, cm, 11/13/22 10:42:00 EDT, Height, 88.9, kg, 10/21/22 20:41:00 EDT, DryWeight Start Date: 12/01/22 Status: Ordered traZODone 50 mg oral tablet 2, tablet, By Mouth, Daily at bedtime, ^2R4., # 60 tablet, Refills 5, Maintenance, 02/26/23 10:11:00 EDT, Route to Pharmacy Electronically, [facility], 175, cm, 12/03/22 11:50:00 EDT, Height,84, [...] 02/09/23 23:18:00 EDT, Route to Pharmacy Electronically, [facility], 175, cm, 12/03/22 11:50:00 EDT, Height, 88.9, kg, 10/21/22 20:41:00 EDT, Dry Weight Start Date: 02/09/23 Status: Ordered Vitamin B6 50 mg oral tablet 1, tablet, By Mouth, Daily, R1., # 90 tablet, Refills 4, Maintenance, 11/16/22 13:39:00 EDT, Route to Pharmacy Electronically, [facility], 175, cm, 11/13/22 10:42:00 EDT, Height, [...] tablet, 3 Refills, Maintenance, 02/26/23 10:11:00 EDT, [facility], 175, cm, 12/03/22 11:50:00 EDT, Height, [...] Team Personnel Name: Alexandra Colmenares RN Position: [facility] ED RN W/OE and Tasks Member Role: Primary Care Nurse Name: Garima Manzano RN Position: [facility] RN Member Role: Primary Care Nurse Name: Malgorzata Marinelli RN Position: [facility] RN Member Role: Primary Care Nurse Name: Joyce Roach RN Position: [facility] ED RN W/OE and Tasks Member Role: Primary Care Nurse Name: Mary Suazo RN Position: [facility] RN Member Role: Primary Care Nurse Name: Andres Pressley RN Position: [facility] RN Member Role: Primary Care Nurse Name: Jany Baig DO Position: [facility] Physician - Primary Care Member Role: PCP Address: Address: [address] [place] [address] [facility] [address] Name: Kaye Payne RN Position: [facility] RN Member Role: Primary Care Nurse Name: Garima Hutchinson Position: [facility] RN Member Role: Primary Care Nurse Name: Malgorzata Austin Position: [facility] RN Member Role: Primary Care Nurse Name: Ibeth Adams RN Position: [facility] RN Member Role: Primary Care Nurse Name: Torrie Hernandez RN Position: [facility] OB RN Member Role: Primary Care Nurse Name: Gretchen Knutson RN Position: [facility] SN RN Member Role: Primary Care Nurse Name: Aislinn Mckee RN Position: [facility] RN Member Role: Primary Care Nurse Name: Ashley Mcelroy Position: [facility] RN Member Role: Primary Care Nurse Name: Ashok Kevin RN Position: S RN Member Role: Primary Care Nurse Name: Cody Garcia Position: [facility] Associate Professional Member Role: Lifetime Consulting Provider Address: Address: [address] [place] [address]- Name: Paige Nascimento RN Position: [facility] RN Member Role: Primary Care Nurse Name: Ge Covarrubias RN Position: [facility] RN Member Role: Primary Care Nurse Name: Orin Elmore RN Position: [facility] ED RN W/OE and Tasks Member Role: Primary Care Nurse Name: Allegra Liu RN Position: [facility] SN RN Member Role: Primary Care Nurse Name: Shayan Pandya MD Position: [facility] Renal MD Member Role: Lifetime Consulting Physician Address: Address: [address] [place] [address] [address] [facility], [place] [address]- Name: Darlene Rodrigez RN Position: [facility] RN Member Role: Primary Care Nurse Name: Dolores Can RN Position: [facility] RN Member Role: Primary Care Nurse Name: Ingrid Verdugo RN Position: [facility] RN Member Role: Primary Care Nurse Name: Monica Rowell RN Position: [facility] RN Member Role: Primary Care Nurse Name: Jimi Fitzpatrick RN Position: [facility] RN Member Role: Primary Care Nurse Care Team Related Persons Name: MARLEN CABEZAS Address: home [address] [place] [id number] Name: MARLEN CABEZAS Address: home [address] [place] [id number] Name: NICK CABEZAS Name: GEMA CABEZAS Address: home [address] [place] [id number]
--- OUTSIDE RECORDS SUMMARY | 2023-12-15 20:47 | XMS_ITS | Continuity of Care Document ---
Author Organization [facility] ter Address [address] [place] [id number]- Care Team Providers Care District Traffic Chief Name Role Phone Jany Baig DO Primary Care Physician Encounter [facility] Date(s): 07/12/23 - 07/14/[address] [address]- Discharge Disposition: A-D/C Home Attending Physician: Aguilar Cunningham MD Admitting Physician: Angel Funk MD Referring Physician: Not on Staff, Referring [...] 1Result Comment: [facility]: [id number] 2Result Comment: [04/29/2017] [id number] 3Admin Note: FLUARIX 4Admin Note: 3 RDINJ 5Admin Note: #2 Medications acamprosate 333 mg oral delayed release tablet 1 tablet = 333 mg, By Mouth, 3 times a day, # 42 tablet, 4 Refills, Maintenance, 11/05/22 11:31:00 EDT, EC Tablet, [facility], Partial fill upon patient request if the prescription is for a schedule II opioid drug., 175, cm, 11/05/22 10:21:00... Start Date: 11/05/22 Stop Date: 01/14/23 Status: Ordered amLODIPine 5 mg oral tablet 5 mg, Tablet, By Mouth, 07/14/23 9:00:00 EST Start Date: 07/14/23 Stop Date: 07/14/23 Status: Completed amLODIPine 5 mg oral tablet 1 tablet, By Mouth, Daily, ^1R1., # 30 tablet, 2 Refills, Maintenance, 06/02/23 8:00:00 EST, [facility], 175, cm, 03/22/23 6:50:00 EDT, Height, 77.5, kg, 03/20/23 11:30:00 EDT, Dry Weight Start Date: 06/02/23 Status: Ordered BACLOFEN 10MG TABS BACLOFEN 10MG TABS, See Instructions, # 90 tablet, 0 Refills, Maintenance, TAKE ONE TABLET BY MOUTHTHREE TIMES A DAY ^1R1,1R2,1R4, 07/12/23 11:12:00 EST, 175, cm, 07/07/23 9:46:00 EST, Height, 80.6,kg, 07/07/23 9:18:00 EST, Dry Weight Start Date: 07/12/23 Status: Ordered CALCIUM + D 500/400 TABS [...] Gm, 12 Refills, Maintenance, 03/24/23 10:52:00 EDT, [facility], 28, APPLY TOPICALLY TO AFFECTED [...] Gm, 1 Refills, Maintenance, 07/07/23 17:36:00 EST[facility], USE 1 SPRAY(S) INTO EACH NOSTRIL TWICE A DAY, 175, cm, 07/07/23 9:46:00 EST, Height, 80.6, kg, 07/07/23 9:1... Start Date: 07/07/23 Status: Ordered folic acid 1 mg oral tablet 1, tablet, By Mouth, Daily, ^1R1., # 30 tablet, Refills 5, Maintenance, 03/20/23 16:22:00 EDT, Route to Pharmacy Electronically, [facility], 175, cm, 03/20/23 15:31:00 EDT, Height, 77.5, kg, 03/20/23 11:30:00 EDT, Dry Weight Start Date: 03/20/23 Status: Ordered furosemide 20 mg oral tablet 20 mg, 1, tablet, By Mouth, Every other day, # 30 tablet, Refills 3, Tot. Refills 3, Maintenance, 01/28/23 12:31:00 EDT, Route to Pharmacy Electronically, [facility], Partial fill upon patient request if the prescription is for a schedule II o... Start Date: 01/28/23 Status: Ordered gabapentin 300 mg oral capsule 300 mg, 1, capsule, By Mouth, Daily at bedtime, note dose/frequency change, # 90 capsule, Refills 4, Tot. Refills 4, Maintenance, 11/05/22 11:05:00 EDT, Route to Pharmacy Electronically, [facility], 175, cm, 11/05/22 10:21:00 EDT, Height, 88.9... Start Date: 11/05/22 Stop Date: 01/29/24 Status: Ordered hydrOXYzine hydrochloride 10 mg oral tablet 2 tablet, By Mouth, 2 times a day, PRN NEEDED FOR ANXIETY (VIAL), # 30 tablet, 3 Refills, Maintenance, 04/16/23 16:41:00 EDT, [facility], 175, cm, 03/22/23 6:50:00 EDT, Height, 77.5, kg, 03/20/23 11:30:00 EDT, Dry Weight Start Date: 04/16/23 Status: Ordered lactulose 10 gm/15 ml oral syrup 30 mL = 20 Gm, By Mouth, 3 times a day, 0 Refills, Maintenance, 07/14/23 10:54:00 EST, Syrup, Partial fill upon patient request if the prescription is for a schedule II opioid drug. Start Date: 07/14/23 Status: Ordered magnesium oxide 400 mg oral tablet See Instructions, TAKE 1 TABLET BY MOUTH TWICE A DAY^1R1,1R4, # 60 tablet, 11 Refills, Maintenance,01/28/23 12:31:00 EDT, [facility], 175, cm, 12/03/22 11:50:00 EDT, Height, 88.9, kg, 10/21/22 20:41:00 EDT, Dry Weight Start Date: 01/28/23 Status: Ordered Melatonin 3 mg oral tablet 1 tablet, By Mouth, Daily at bedtime, PRN NEEDED FOR INSOMNIA (PACKAGE IN TRAY)^1R4, # 60 tablet, 5 Refills, Maintenance, 04/16/23 16:41:00 EDT, [facility], 60, TAKE 1 TABLET [...] 02/26/23 10:11:00 EDT, Route to Pharmacy Electronically, [facility], 175, cm, 12/03/22 11:50:00 [...] 04/14/23 12:41:00 EDT, Route to Pharmacy Electronically, [facility], 175, cm, 03/22/23 6:50:00 EDT, Height, 77.5, kg, 03/20/23 11:30:00 EDT, Dry Weight Start Date: 04/14/23 Status: Ordered Tab-A-Jesse oral tablet 1 tablet, By Mouth, Daily, R1., # 30 tablet, 5 Refills, Maintenance, 05/06/23 19:16:00 EST, [facility], 30, TAKE 1 TABLET BY MOUTH ONCE A DAY^1R1, 175, cm, 03/22/23 6:50:00 EDT, Height, 77.5,kg, 03/20/23 11:30:00 EDT, Dry Weight Start Date: 05/06/23 Status: Ordered traZODone 50 mg oral tablet 2, tablet, By Mouth, Daily at bedtime, ^2R4., # 60 tablet, Refills 5, Maintenance, 02/26/23 10:11:00 EDT, Route to Pharmacy Electronically, [facility], 175, cm, 12/03/22 11:50:00 [...] 02/09/23 23:18:00 EDT, Route to Pharmacy Electronically, [facility], 175, cm, 12/03/22 11:50:00 EDT, Height, 88.9, kg, 10/21/22 20:41:00 EDT, Dry Weight Start Date: 02/09/23 Status: Ordered Vitamin B6 50 mg oral tablet 1, tablet, By Mouth, Daily, R1., # 90 tablet, Refills 4, Maintenance, 11/16/22 13:39:00 EDT, Route to Pharmacy Electronically, [facility], 175, cm, 11/13/22 10:42:00 EDT, Height, [...] each, 1 Refills, Maintenance, 06/30/23 12:59:00 EST, [facility], 175, cm, 03/22/23 6:50:00 EDT, Height, [...] homocyseine 9legally blind;hereditary 10normal echo November 2014 Results Radiology Reports * Exam Date Time Procedure Performing Provider Status 07/12/23 9:[address] Head/Brain W/O Contrast Sai Pink (Verified) Notes: (CT Head/Brain W/O Contrast) Reason For Exam: Trauma RESULT: CT Head/Brain W/O Contrast CT Head/Brain W/O Contrast INDICATION: Hx of Present Illness: denies confusion but states staff feel he is, denies confuaion, fevers, chest symptoms, sob, abd symptoms pain, cahnge in UO, states he is taking lactollose; Reason: Trauma; Clinical Question(s): Hematoma; Order Comment: TECHNIQUE: Noncontrast head CT using axial technique and reconstructed in axial and coronal planes.Iterative reconstruction techniques are used to optimize dose and image quality. COMPARISON: 10/21/22. FINDINGS: Acoustical Tile Patternmaker view findings, lines and tubes: None. BRAIN AND EXTRA-AXIAL SPACES: No parenchymal hemorrhage, midline shift, or mass effect. Clancy-white matter differentiation is wellpreserved. No acute infarct. Negative insular ribbon and hyperdense vessel signs. Mild prominence of the ventricles and sulci consistent with parenchymal volume loss. No white matter lesions. No subarachnoid hemorrhage. No subdural or epidural collection. CALVARIUM, SKULL BASE, AND SOFT TISSUES: No fractures or suspicious bony lesions. The paranasal sinuses and mastoid air cells are clear. Visualized orbits and globes are intact. The extracranial soft tissues are unremarkable. IMPRESSION: No acute intracranial pathology. WSN: [id number] Ordering Physician: Saadia Mccann Dictated By: Gerard Sanchez MD Dictated Date/Time: 07/12/23 9:41 pm Reviewed By: Gerard Sanchez MD Signed By: Gerard Sanchez MD Signed Date/Time: 07/12/23 9:41 pm Transcribed By: MIRNA Transcribed Date/Time: 07/12/23 9:40 pm Vital Signs Most recent to oldest [Reference Range]: 1 2 3 Height 175 cm (07/14/23 12:07 PM) 175 cm (07/14/23 6:59 AM) 175 cm (07/13/23 9:50 PM) Weight 75.7 kg (07/13/23 12:49 AM) 61.3 kg (07/12/23 11:27 PM) 61.3 kg (07/12/23 4:31 PM) Oxygen Saturation [94-100 %] 99 % (07/14/23 12:07 PM) 100 % (07/14/23 6:59 AM) 99 % (07/13/23 9:50 PM) Pulse Rate [55-90 bpm] 84 bpm (07/14/23 12:07 PM) 75 bpm (07/14/23 6:59 AM) 86 bpm (07/13/23 9:50 PM) Blood Pressure [90-138/55-84 mm Hg] 115/66mm Hg (07/14/23 12:07 PM) 130/84mm Hg (07/14/23 8:18 AM) 114/80mm Hg (07/14/23 6:59 AM) Respiratory Rate [16-30 br/min] 118 br/min *H* (07/14/23 12:07 PM) 18 br/min (07/14/23 6:59 AM) 18 br/min (07/13/23 9:50 PM) Temperature [96.8-100.4 DegF] 97.8 DegF (07/14/23 12:07 PM) 97.9 DegF (07/14/23 6:59 AM) 98.7 DegF (07/13/23 9:50 PM) Mode of Delivery (Oxygen) Room air (07/14/23 12:07 PM) Room air (07/14/23 6:59 AM) Room air (07/13/23 9:50 PM) Blood pressure sites Arm, left (07/14/23 12:07 PM) Arm, left (07/14/23 6:59 AM) Arm, left (07/13/23 9:50 PM) Temperature Route Oral (07/14/23 12:07 PM) Oral (07/14/23 6:59 AM) Oral (07/13/23 9:50 PM) Dry Weight 61.3 kg (07/12/23 11:27 PM) 61.3 kg (07/12/23 4:31 PM) Weight Obtained Via Bed scale (07/13/23 12:49 AM) Social History Social History Type Response Smoking Status 10 or more cigarette s (1/2 pack or more)/day in last 30 days entered on: 02/04/19 Sex Admission evaluation note * Ryan CERVANTES, Charmaine Saenz: PERFORM Event Display: Admission Note Authored Date: Patient: ??GEMA BASSETT ? Age:??48 Years?Sex:??Male?:??1975?? Chief Complaint/Reason for Consultation Confusion at [facility] History of Present Illness Mr. Bassett??is a??48-year-old male with past medical history of alcoholic cirrhosis, esophageal varices status post TIPS, sleep apnea, neuropathy, insomnia, legal blindness, history of polysubstance abuse, anemia, amongst others, who presents to the emergency department from [facility] secondary to confusion.?? Patient himself is unable to provide significant history, he is unsure why he is here, and is not able to tell us that he is in the hospital.?? He did know that it was June, but stated that it was 2003.?? He denies a full review of systems.?? The emergency department, vital signs are stable.?? Laboratory studies showed pancytopenia, transaminitis, and ammonia was elevated to 131.?? Head CT showed no acute intracranial pathology.?? Patient was diagnosed with attic encephalopathy, started on lactulose, and care was transferred to internal medicine team for admission. Review of Systems General: Denies lightheadedness, dizziness HEENT:?? Denies headache, runny nose, sore throat Cardiac:?? Denies chest pain or palpitations Respiratory:?? Denies SOB or cough Abdomen:?? Denies nausea, vomiting, abdominal pain, diarrhea, or constipation :?? Denies hematuria or dysuria Skin:?? Denies rashes or wounds Objective Measurements?? Weight: 61.3 kg (07/12/23) Dry Weight: 61.3 kg (07/12/23) ? Vital Signs?? Temperature: 98.1 DegF (07/12/23 20:33:00) Temperature Route: Oral (07/12/23 20:33:00) Pulse Rate: 77 bpm (07/12/23 20:33:00) Respiratory Rate: 16 br/min (07/12/23 16:31:00) Systolic Blood Pressure:??149 mm Hg??High (07/12/23 20:33:00) Diastolic Blood Pressure: 82 mm Hg (07/12/23 20:33:00) Blood pressure sites: Arm, left (07/12/23 20:33:00) Mean Arterial Pressure: 104 mm Hg (07/12/23 20:33:00) Pulse Pressure: 67 mm Hg (07/12/23 20:33:00) Oxygen Saturation: 100 % (07/12/23 20:33:00) Mode of Delivery (Oxygen): Room air (07/12/23 16:31:00) ? Intake/Output? No Data Available ?? Precautions No Precautions documented.? Physical Exam Physical Exam: General: No apparent distress, appears stated age, awake, alert, cooperative with exam Head/Neck/Throat: Normocephalic, atraumatic, moist mucous membranes Eyes: Sclera anicteric, EOMI, legally blind Thorax: Clear to auscultation bilaterally, no respiratory distress Cardiovascular: Regular rate and rhythm, possible faint murmur,??1+ peripheral edema Abdomen: Soft, nontender, non-distended, normoactive bowel sounds Musculoskeletal: No gross bony deformities Skin: No rashes or wounds noted on exposed skin Neurologic: Alert and oriented to person, month, not year/place/event, asterixis present,??no focalneurological deficits, no facial droop Psychiatric: Normal affect, confused Assessment/Plan Diagnoses 1. ??Hepatic encephalopathy ??(K72.90) 2. ??Alcoholic hepatitis, cirrhosis ??(K70.10) 3. ??Pancytopenia ??(D61.818) 4. ??Esophageal varices s/p TIPS ??(K70.30) 5. ??Anxiety and depression; admission to [facility] in 06/2015 ??(F41.8) 6. ??Insomnia ??(G47.00) ?? Assessment:??48-year-old male with past medical history of alcoholic cirrhosis, esophageal varices status post TIPS, sleep apnea, neuropathy, insomnia, legal blindness, history of polysubstance abuse, anemia, amongst others, who presents to? the emergency department from [facility] secondary to confusion, diagnosed with hepatic encephalopathy ?? Hepatic encephalopathy (K72.90):??Patient's confusion appears to be secondary to hepatic encephalopathy, with elevated ammonia level of 131 -Lactulose 30 g 3 times daily -Trend ammonia level -Continue rifaximin, Lasix, spironolactone -Social work consult -Trend CBC, BMP, LFTs, Mag, Ammonia ?? Alcoholic hepatitis, cirrhosis (K70.10):??Transaminitis with alkaline phosphatase 147, AST 44, bilirubin 1.4 Patient reports he is no longer drinking, currently staying at [facility] Continue acamprosate, thiamine, folic acid, pyridoxine, multivitamin, magnesium ?? Pancytopenia (D61.818):??Pancytopenia with WBC 3.8, RBC 4, H&H 12.5/37.5, platelets 94 Likely secondary to cirrhosis And CBC ?? Esophageal varices s/p TIPS (K70.30):??Continue pantoprazole Trend H&H No evidence of active bleeding ?? Anxiety and depression (F41.8):??Continue home paroxetine,??hydroxyzine as needed ?? Insomnia (G47.00):??Continue home trazodone ?? VTE Prophylaxis:??Intermittent pneumatic compression boots ?VTE Prophylaxis Assessment:??VTE Prophylaxis Ordered ?? Code Status:??Full CODE STATUS, confirmed with patient ?Order Code Status:??Code Status Ordered ?? Discharge Planning:??Pending improvement in encephalopathy ?? I personally spent a total of??65 minutes reviewing the chart, notes, images, and labs, speaking with nurses, examining and interviewing the patient, placing orders, reconciling medications, and documenting in the medical record. ?? Histories Allergies Allergies ?(Active and Proposed Allergies Only) NSAIDs? (Severity: Unknown severity, Onset: Unknown) Tylenol? (Severity: Unknown severity, Onset: Unknown) ?Reactions: Cirrhosis ?Comments: pt advised not to take d/t underlying liver disease ibuprofen? (Severity: Unknown severity, Onset: Unknown) ?Reactions: Hx of GI Bleed ?Comments: pt advised not to take NSAIDs or Tylenol due to underlying liver disease. Also had GIside effects when took ?too much aspirin in the past. aspirin? (Severity: Unknown severity, Onset: Unknown) ?Reactions: Hx GI Bleed ?Comments: pt took too much in the past and had GI side effects ? Past Medical History/Problem List Active Problems??(22) AC joint derangement Alcohol abuse Alcoholic hepatitis, cirrhosis Anemia Anxiety and depression; admission to [facility] in 06/2015 ED (erectile dysfunction) Esophageal varices s/p TIPS Gynecomastia, male H/o Acute upper GI bleed due to variceal bleed H/O: substance abuse; reports sobriety since summer 2015 Heart murmur, systolic Hepatic encephalopathy History of substance abuse Insomnia Sherie's Optic neuropathy Migraine Neuropathy Normocytic anemia ANA LUISA (obstructive sleep apnea) Overweight Patellar contusion, seen by [facility] spring 2015 Vitamin D insufficiency ? Past Surgical History TIPS - Transjugular intrahepatic portosystemic shunt: 03/18/15 EGD: 03/14/15 EGD: 11/03/14 Laryngoscopy in 1988 ? Social History Alcohol Details:??Use: Past. ??Frequency: Several times per day. ??Other: 18 beers per day. ??Previous treatment: Inpatient. 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 Exercise Details:??Exercise type: Walking. Home/Environment Details:??Living situation: Home with assistance. ??Lives with: Father, Mother. Nutrition/Health Details:??Diet: Low sodium. Sexual Details:??Sexually involved in last 6 months: No. Substance Abuse Details:??Use: Current. ??Type: Cocaine, Heroin. Tobacco Details:??Use: 10 or more cigarettes (1/2 pack or more)/day in last 30 days. Details:??Former smoker, Other: 1/2 PPD since age 35 yo. ??Type: Cigarettes. ??Stopped at age: 40 Years. ? Family History Mother: Hypertension Father: Hyperlipidemia; Hypertension Brother: Alcoholism Brother: Alcoholism Pat. Grandfather: Diabetes mellitus type II; Throat??cancer? Pat. Grandmother: Hypertension Other: Optic neuropathy Mat. Grandmother: Diabetes mellitus type II Other (multiple family members on mother's side): Sherie's optic atrophy ? Medications Home Medications Acamprosate (acamprosate 333 mg oral delayed release tablet)?1?tab(s)?333?Milligram?By Mouth?3 times a day?for 14?Days Amlodipine (amLODIPine 5 mg oral tablet)?1?tab(s)?By Mouth?Daily?^1R1. Diclofenac Topical (diclofenac 1% topical gel)?See Instructions?APPLY TOPICALLY TO AFFECTED AREA(S) FOUR TIMES A DAY NEEDED FOR PAIN (BULK) Durable Medical Equipment (Compression Stockings)?See Instructions?surgical, calf length 20-30 mm HgM79.89M79.606 Durable Medical Equipment (R aircast ankle-stirrup support brace)?See Instructions?Dx: R inversion ankle haexgsd34.409a Durable Medical Equipment (Walker)?See Instructions?2 wheeled Walker.Dx: Falls, gait abnormality Durable Medical Equipment (Urinal)?See Instructions?Dx: Cirrhoisis, ambulatory dysfunction, incontinency Durable Medical Equipment (Diapers)?See Instructions?Aduld Adjustable Pullups Sz L/XLuse 6 daily per 6 wk periodLON 99 mon39.48 Durable Medical Equipment (Disposable Underpads ?? n39.498)?See Instructions?2 daily per 6 wkperiod Durable Medical Equipment (Walker)?See Instructions?Use as needed Fluticasone Nasal (fluticasone 50 mcg/inh nasal spray)?See Instructions?USE 1 SPRAY(S) INTO EACH NOSTRIL TWICE A DAY Folic Acid (folic acid 1 mg oral tablet)?1?tablet?By Mouth?Daily?^1R1. Furosemide (furosemide 20 mg oral tablet)?20?Milligram?1?tablet?By Mouth?Every other day Gabapentin (gabapentin 300 mg oral capsule)?300?Milligram?1?capsule?By Mouth?Daily at bedtime?for 90?Days?note dose/frequency change HydrOXYzine (hydrOXYzine hydrochloride 10 mg oral tablet)?2?tab(s)?By Mouth?2 times a day?as needed? NEEDED FOR ANXIETY (VIAL) Lactulose (lactulose 10 gm/15 ml oral syrup)?15?Milliliter?By Mouth?2 times a day Magnesium Oxide (magnesium oxide 400 mg oral tablet)?See Instructions?TAKE 1 TABLET BY MOUTH TWICE A DAY^1R1,1R4 Melatonin (Melatonin 3 mg oral tablet)?1?tab(s)?By Mouth?Daily at bedtime?as needed? NEEDED FOR INSOMNIA (PACKAGE IN TRAY)^1R4 Miscellaneous Rx (Eucerin Original Healing Cream)?See Instructions?apply 2 x a day for dry skindx: eczema ??L30.9 Miscellaneous Rx (CALCIUM + D 500/400 TABS)?1?tab(s)?By Mouth?Daily?^1R2. Miscellaneous Rx (BACLOFEN 10MG TABS)?See Instructions?TAKE ONE TABLET BY MOUTH THREE TIMES ADAY ^1R1,1R2,1R4 Multivitamin (Tab-A-Jesse oral tablet)?1?tab(s)?By Mouth?Daily?R1. Pantoprazole (pantoprazole 40 mg oral delayed release tablet)?1?tab(s)?By Mouth?Daily?^1R1. Paroxetine (PARoxetine 10 mg oral tablet)?20?Milligram?2?tablet?By Mouth?Daily?^1R1. Pyridoxine (Vitamin B6 50 mg oral tablet)?1?tablet?By Mouth?Daily?R1. Rifaximin (Xifaxan 550 mg oral tablet)?See Instructions?1 tablet By Mouth 4 times a day Spironolactone (spironolactone 25 mg oral tablet)?1?tablet?By Mouth?Daily?^1R2. Thiamine (Vitamin B1 100 mg oral tablet)?1?tablet?By Mouth?Daily Trazodone (traZODone 50 mg oral tablet)?2?tablet?By Mouth?Daily at bedtime?^2R4. ? Inpatient Medications Medications (24) Active SCHEDULED: (16) Acamprosate 333mg EC Tablet (acamprosate 333 mg oral delayed release tablet) ??333 mg, By Mouth, 3 times a day Amlodipine 5 mg Tablet (amLODIPine 5 mg oral tablet) ??5 mg, By Mouth, Daily Folic Acid 1 mg Tablet (folic acid 1 mg oral tablet) ??1 mg, By Mouth, Daily Furosemide 20 mg Tablet (furosemide 20 mg oral tablet) ??20 mg, By Mouth, Every other day Gabapentin 300 mg Capsule (gabapentin 300 mg oral capsule) ??300 mg, By Mouth, Daily at bedtime Lactulose 20 Gm/30mL Syrup (lactulose 10 gm/15 ml oral syrup) ??20 Gm 30 mL, By Mouth, 3 times a day Magnesium Oxide 400 mg Tablet (magnesium oxide 400 mg oral tablet) ??400 mg, By Mouth, Daily Multivitamin Tablet ??1 tablet, By Mouth, Daily NaCl 0.9% Flush 3ml (NaCL 0.9% Flush) ??3 mL, IV Push, Every 8 hours Pantoprazole 40 mg EC Tablet (pantoprazole 40 mg oral delayed release tablet) ??40 mg, By Mouth, Daily Paroxetine 20 mg Tablet (Paroxetine) ??20 mg, By Mouth, Daily Pyridoxine 50 mg Tablet (Vitamin B6 50 mg oral tablet) ??50 mg, By Mouth, Daily Rifaximin 550 mg Tab (Xifaxan 550 mg oral tablet) ??550 mg, By Mouth, Once Spironolactone 25 mg Tablet (spironolactone 25 mg oral tablet) ??25 mg, By Mouth, Daily Thiamine 100 mg Tablet (Vitamin B1 100 mg oral tablet) ??100 mg, By Mouth, Daily Trazodone 50 mg Tablet (traZODone 50 mg oral tablet) ??100 mg, By Mouth, Daily at bedtime CONTINUOUS: (0) PRN: (8) Dextromethorphan-Guaifenesin 20 mg-200 mg/10 mL Liqu UD (Robitussin DM Liquid) ??10 mL, By Mouth, Every 4 hours Docusate Sodium 100 mg Capsule (Docusate Sodium Capsule) ??100 mg 1 capsule, By Mouth, 2 times a day HydrOXYzine HCL 10mg Tablet (hydrOXYzine hydrochloride 10 mg oral tablet) ??20 mg, By Mouth, 2 times a day Melatonin 3 mg Tablet (Melatonin Tablet) ??3 mg, By Mouth, Daily at bedtime NaCl 0.9% Flush 3ml (NaCL 0.9% Flush) ??3 mL, IV Push, Every 8 hours Polyethylene Glycol 17 Gm Powder (MiraLax Powder) ??17 Gm 1 pack/packet, By Mouth, Daily Senna Tablet ??8.6 mg 1 tablet, By Mouth, 2 times a day Simethicone 80 mg Chewable Tablet (Simethicone Tablet) ??80 mg, Chew, 3 times a day ? Results Recent Labs BLOOD COUNT & DIFF WBC 3.8 k/mm3 (Low)?? 07/12/2023 17:10 RBC 4.04 m/mm3 (Low)?? 07/12/2023 17:10 Hgb 12.5 Gm/dL (Low)?? 07/12/2023 17:10 Hct 37.5 % (Low)?? 07/12/2023 17:10 MCV 92.8 femtoliters ()?? 07/12/2023 17:10 MCH 30.9 pg ()?? 07/12/2023 17:10 MCHC 33.3 g/dL ()?? 07/12/2023 17:10 Platelet Count 94 k/mm3 (Low)?? 07/12/2023 17:10 RDW-SD 50.2 femtoliters (High)?? 07/12/2023 17:10 MPV 9.8 femtoliters ()?? 07/12/2023 17:10 Nucleated RBC (Automated) 0.0 #/100 WBC'S ()?? 07/12/2023 17:10 Abs. NRBC 0.0 k/mm3 ()?? 07/12/2023 17:10 Abs. Neut 1.7 k/mm3 ()?? 07/12/2023 17:10 Abs. Lymph 1.4 k/mm3 ()?? 07/12/2023 17:10 Abs. [place] 0.6 k/mm3 ()?? 07/12/2023 17:10 Abs. Eo 0.1 k/mm3 ()?? 07/12/2023 17:10 Abs. Baso 0.0 k/mm3 ()?? 07/12/2023 17:10 Neut % 43.2 % (Low)?? 07/12/2023 17:10 Lymph % 37.5 % ()?? 07/12/2023 17:10 [place] % 14.6 % (High)?? 07/12/2023 17:10 Eos % 3.6 % ()?? 07/12/2023 17:10 Baso % 0.8 % ()?? 07/12/2023 17:10 RBC Morphology SLIGHT ()?? 07/12/2023 17:10 Platelet Estimate DECREASED ()?? 07/12/2023 17:10 Imm Gran 0.3 % ()?? 07/12/2023 17:10 Abs. Imm Gran 0.0 k/mm3 ()?? 07/12/2023 17:10 ?? CHEM GENERAL Sodium 141 mmol/L ()?? 07/12/2023 17:10 Potassium 4.5 mmol/L ()?? 07/12/2023 17:10 Chloride 111 mmol/L (High)?? 07/12/2023 17:10 Bicarbonate Level 19 mmol/L (Low)?? 07/12/2023 17:10 Anion Gap 11 ()?? 07/12/2023 17:10 Glucose Level 100 mg/dL (High)?? 07/12/2023 17:10 BUN 13 mg/dL ()?? 07/12/2023 17:10 Creatinine-Blood 0.6 mg/dL (Low)?? 07/12/2023 17:10 Estimated GFR Creatinine 116 ML/MIN/1.73 M2 ()?? 07/12/2023 17:10 Calcium 9.2 mg/dL ()?? 07/12/2023 17:10 Protein, Total 7.0 Gm/dL ()?? 07/12/2023 17:10 Albumin 3.5 Gm/dL ()?? 07/12/2023 17:10 AG Ratio 1.0 ()?? 07/12/2023 17:10 Alkaline Phosphatase 147 units/L (High)?? 07/12/2023 17:10 AST (SGOT) 44 units/L (High)?? 07/12/2023 17:10 ALT (SGPT) 28 units/L ()?? 07/12/2023 17:10 Bilirubin, Total 1.4 mg/dL (High)?? 07/12/2023 17:10 ?? COAG INR 1.1 ()?? 07/12/2023 17:10 Protime (PT) 12.0 seconds (High)?? 07/12/2023 17:10 ?? MISC. CHEMISTRY Ammonia, Venous 131 ??mole/L (High)?? 07/12/2023 17:10 ? Imaging(s) ?CT Head/Brain W/O Contrast ?? 07/12/2023 21:38??by Gerard Sanchez MD ?IMPRESSION: No acute intracranial pathology. ? Hospital Progress note * Shira Galindo RN: PERFORM, SIGN, VERIFY Event Display: Progress Note Hospital Authored Date: Patient: GEMA BASSETT Age: 48 years Sex: Male : 1975 Associated Diagnoses: None Author: Shira Galindo RN Findings Problem Related to Alteration in Gastrointestinal : Alteration in Gastrointestinal Func/new 07/13/2023 22:00 EST Alteration in GI status Related to Hepatic Encephalitis, Incontinence, Liver Failure Goals & Outcomes, Gastrointestinal Establish a regular pattern of elimination for pt, Nutritional intake is adequate for metabolic needs, Pt will achieve normal/improved fluid balance, Pt will resume/maintain mental status Interventions, Gastrointestinal Assess/monitor abdomen for distention, tenderness, Assess/monitor abdominal girth & bowel function, Assess/monitor bowel pattern, bowel sounds, flatus, Assess/monitor number of bowel movements, Assess/monitor color, quantity, quality, consistency of stoo, Assess/monitor pt for nausea, vomiting, Assess/monitor intake & output, Assess if pt tolerating diet, Teach/encourage deep breath & cough exercises Goals/Interventions, Gastrointestinal Yes Gastrointestinal, Problem Start 07/13/2023 4:09 Reviewed plan with, Gastrointestinal Patient Patient Progression, Gastrointestinal Pt progressing according to plan . Nursing Data Gastrointestinal Data. : Gastrointestinal Data. 07/13/2023 22:00 EST Abdomen Soft, Non-tender, Round Bowel Sounds LUQ Present Bowel Sounds RUQ Present Bowel Sounds LLQ Present Bowel Sounds RLQ Present GI WNL except . Neurological Data. : Neurological Data. 07/13/2023 22:00 EST Neurological Symptoms Unsteady gait/Ataxia Gait Unsteady Neuro WNL except . Vital Signs : VITAL SIGNS SECTION 07/13/2023 21:50 EST Early Warning Score 6.00 07/13/2023 21:50 EST Temperature 98.7 DegF Temperature Route Oral Pulse Rate 86 bpm Respiratory Rate 18 br/min Systolic Blood Pressure 123 mm Hg Diastolic Blood Pressure 70 mm Hg Blood pressure sites Arm, left Mean Arterial Pressure 88 mm Hg Pulse Pressure 53 mm Hg Oxygen Saturation 99 % Mode of Delivery (Oxygen) Room air . Evaluation Patient is A/O x 3. Patient is legally blind. Lungs are clear on RA . Denies SOB or chest pain.. Good dorsi/plantar flexion and strong /equal BL hand grasp. Abdomen is soft and nontender . Bowel sounds are present in all quadrants . Reports passing flatus. Tolerating a cardiac diet. Denies nausea or vomiting. LBM on 07/13. R hip has a healing wound . Skin is otherwise intact and shows no sign of breakdown Voiding CYU . Ambulates with a standby assist, with unsteady gait . Able to ambulate about 100 feet. +PP, +CMS, no edema present. Pain reported as 0 , Administered scheduled meds ??? with good effect. Bed in lowest locked position, call rivera in reach and using appropriately. Patient is progr essing according to plan. Discharge Information Rehabilitation Discharge : Rehab Discharge Index 07/13/2023 10:47 EST Comments on treatment indicated 48 M admitted with confusion. Presents with unsteady gait and need for CGA for safety with ambulation and RW. Rec d/c to home with services. Walker: distance >50 Distance pt will ambulate 150 Full chart review completed Yes Other findings Pt is a mod complexity eval due to PMH and circumstances of hospitalization Plan of care PT Gait training, Therapeutic exercise, Balance training * Krystina Vitale RN: SIGN, VERIFY, PERFORM Event Display: Progress Note Hospital Authored Date: Patient: GEMA BASSETT Age: 48 years Sex: Male : 1975 Associated Diagnoses: None Author: Krystina Vitale RN Findings Problem Related to Alteration in Gastrointestinal : Alteration in Gastrointestinal Func/new 07/13/2023 12:00 EST Alteration in GI status Related to Hepatic Encephalitis, Incontinence, Liver Failure Goals & Outcomes, Gastrointestinal Establish a regular pattern of elimination for pt, Nutritional intake is adequate for metabolic needs, Pt will achieve normal/improved fluid balance, Pt will resume/maintain mental status Interventions, Gastrointestinal Assess/monitor abdomen for distention, tenderness, Assess/monitor abdominal girth & bowel function, Assess/monitor bowel pattern, bowel sounds, flatus, Assess/monitor number of bowel movements BH Goals/Interventions, Gastrointestinal Yes Gastrointestinal, Problem Start 07/13/2023 4:09 Reviewed plan with, Gastrointestinal Patient Patient Progression, Gastrointestinal Pt progressing according to plan . Nursing Data Cardiac Data. : Cardiac Data. 07/13/2023 12:20 EST Nail Bed Color, Fingers [place] Nail Bed Color, Toes [place] Skin Temperature Upper Extremities Warm Skin Temperature Lower Extremities Warm Radial Pulse, Left Normal Radial Pulse, Right Normal Dorsalis Pedis Pulse, Left Normal Dorsalis Pedis Pulse, Right Normal Edema None Cardiovascular WNL except . Gastrointestinal Data. : Gastrointestinal Data. 07/13/2023 12:20 EST Gastrointestinal Symptoms Incontinence, stool Abdomen Soft, Non-tender Bowel Sounds LUQ Present Bowel Sounds RUQ Present Bowel Sounds LLQ Present Bowel Sounds RLQ Present Last Bowel Movement 07/13/2023 GI WNL except . Genitourinary Data. : Genitourinary Data. 07/13/2023 12:20 EST Genitourinary Symptoms Incontinence Urine Color Yellow Urine Description Clear Urine Odor Odorless WNL except . Integumentary Data. : Integumentary Data. 07/13/2023 12:20 EST Skin Color Normal for ethnicity Skin Integrity Intact Mucous Membrane Color [place] Mucous Membrane Description Moist Activity Bedfast Mobility Slightly limited Integumentary WNL except . Musculoskeletal Data. : Musculoskeletal Data. 07/13/2023 12:20 EST Musculoskeletal Symptoms Weakness Musculoskeletal WNL except . Neurological Data. : Neurological Data. 07/13/2023 12:20 EST Neurological Symptoms Weakness or loss of muscle strength Level of Consciousness Full Consciousness Orientated to person, place, time Person, Place, Time Neuro WNL except . Respiratory/Pulmonary Data. : Respiratory/Pulmonary Data. 07/13/2023 12:20 EST Chest expansion Symmetrical Cough No cough Respiratory pattern Regular Left Upper Lobe Breath Sounds Clear Right Upper Lobe Breath Sounds Clear Right Middle Lobe Breath Sounds Clear Left Lower Lobe Breath Sounds Diminished Right Lower Lobe Breath Sounds Diminished Respiratory WNL except . Vital Signs : VITAL SIGNS SECTION 07/13/2023 9:48 EST Systolic Blood Pressure 122 mm Hg Diastolic Blood Pressure 82 mm Hg . Evaluation I- See CIS E- Pt a&ox3 denies pain, pt eating and drinking well, vss, lungs cta with dim bases +bsx4 non tender, has had a bm today. Incontinence care provided. Ammonia levels trending down, possible dc permd tomorrow if mental status improves. Jaundiced in appearance, right hip with small dime size wound scabed over no drainage seen, open to air. Pt turn/repo for comfort, bed low, alarm credit front office developer rivera within reach and will continue to monitor for safety.. Discharge Information Rehabilitation Discharge : Rehab Discharge Index 07/13/2023 10:47 EST Comments on treatment indicated 48 M admitted with confusion. Presents with unsteady gait and need for CGA for safety with ambulation and RW. Rec d/c to home with services. Walker: distance >50 Distance pt will ambulate 150 Full chart review completed Yes Other findings Pt is a mod complexity eval due to PMH and circumstances of hospitalization Plan of care PT Gait training, Therapeutic exercise, Balance training * Donta LEE, Chava: PERFORM Event Display: Progress Note Hospital Authored Date: [id number] Patient: ??GEMA BASSETT ? Age:??48 Years?Sex:??Male?:??1975?? Subjective Patient was seen and examined this morning. ??Patient was??resting in his bed. ??Knew that he was in hospital. ??Could not tell me the name of the hospital.?? He could tell me the month was June but did not tell me what year it was.?? No significant flapping tremors noticed. ??Denies abdominal pain or tenderness. Review of Systems Review of system apart from the ones mentioned in the subjective were negative. Allergies Allergies ?(Active and Proposed Allergies Only) NSAIDs? (Severity: Unknown severity, Onset: Unknown) Tylenol? (Severity: Unknown severity, Onset: Unknown) ?Reactions: Cirrhosis ?Comments: pt advised not to take d/t underlying liver disease ibuprofen? (Severity: Unknown severity, Onset: Unknown) ?Reactions: Hx of GI Bleed ?Comments: pt advised not to take NSAIDs or Tylenol due to underlying liver disease. Also had GIside effects when took ?too much aspirin in the past. aspirin? (Severity: Unknown severity, Onset: Unknown) ?Reactions: Hx GI Bleed ?Comments: pt took too much in the past and had GI side effects ? Past Medical History Active Problems??(22) AC joint derangement Alcohol abuse Alcoholic hepatitis, cirrhosis Anemia Anxiety and depression; admission to [facility] in 06/2015 ED (erectile dysfunction) Esophageal varices s/p TIPS Gynecomastia, male H/o Acute upper GI bleed due to variceal bleed H/O: substance abuse; reports sobriety since summer 2015 Heart murmur, systolic Hepatic encephalopathy History of substance abuse Insomnia Sherie's Optic neuropathy Migraine Neuropathy Normocytic anemia ANA LUISA (obstructive sleep apnea) Overweight Patellar contusion, seen by IBRAHIMA spring 2015 Vitamin D insufficiency ? Objective Measurements?? Height: 175 cm (07/13/23) Weight: 75.7 kg (07/13/23) Dry Weight: 61.3 kg (07/12/23) ? Vital Signs?? Temperature: 97.9 DegF (07/13/23 05:55:00) Temperature Route: Oral (07/13/23 05:55:00) Pulse Rate: 77 bpm (07/13/23 05:55:00) Respiratory Rate: 18 br/min (07/13/23 05:55:00) Systolic Blood Pressure: 122 mm Hg (07/13/23 09:48:00) Diastolic Blood Pressure: 82 mm Hg (07/13/23 09:48:00) Blood pressure sites: Arm, left (07/13/23 05:55:00) Mean Arterial Pressure: 95 mm Hg (07/13/23 05:55:00) Pulse Pressure: 53 mm Hg (07/13/23 05:55:00) Oxygen Saturation: 100 % (07/13/23 05:55:00) Mode of Delivery (Oxygen): Room air (07/13/23 05:55:00) Early Warning Score: 8 (07/13/23 09:52:44) ? Pain Scores?? No qualifying data available. ? Intake/Output? 07/12 22:18 07/13 07:00 07/12 07:00 07/11 07:00 07/10 07:00 ?? 07/13 12:06 07/13 12:06 07/13 06:59 07/12 06:59 07/11 06:59 Intake ?0 ?0 ?0 ?0 ?0 Output ?801 ?200 ?601 ?0 ?0 Net Total ? -801 ? -200 ? -601 ?0 ?0 ? Physical Exam Constitutional: Alert, in no acute distress. Head EENT: Extraocular muscle movement intact.??Moist mucous membranes.?? Neck: Supple. No JVD. Respiratory: Clear to auscultation. No wheezing or crackles. No use of accessory muscles. Cardiovascular: S1S2 regular. No murmurs, rubs or gallops. Gastrointestinal: Abdomen soft, non-tender, non-distended. Normal bowel sounds. Genitourinary: No CVA tenderness. Extremities: No lower extremity pitting??edema. No cyanosis or clubbing. Neurologic: Awake, alert, oriented x 2 speech normal. No focal neurological deficits.?? No flappingtremors Skin: No rash. Psychiatric: Normal mood and affect _ Inpatient Medications Medications (23) Active SCHEDULED: (15) Acamprosate 333mg EC Tablet (acamprosate 333 mg oral delayed release tablet) ??333 mg, By Mouth, 3 times a day Amlodipine 5 mg Tablet (amLODIPine 5 mg oral tablet) ??5 mg, By Mouth, Daily Folic Acid 1 mg Tablet (folic acid 1 mg oral tablet) ??1 mg, By Mouth, Daily Furosemide 20 mg Tablet (furosemide 20 mg oral tablet) ??20 mg, By Mouth, Every other day Gabapentin 300 mg Capsule (gabapentin 300 mg oral capsule) ??300 mg, By Mouth, Daily at bedtime Lactulose 20 Gm/30mL Syrup (lactulose 10 gm/15 ml oral syrup) ??20 Gm 30 mL, By Mouth, 3 times a day Magnesium Oxide 400 mg Tablet (magnesium oxide 400 mg oral tablet) ??400 mg, By Mouth, Daily Multivitamin Tablet ??1 tablet, By Mouth, Daily NaCl 0.9% Flush 3ml (NaCL 0.9% Flush) ??3 mL, IV Push, Every 8 hours Pantoprazole 40 mg EC Tablet (pantoprazole 40 mg oral delayed release tablet) ??40 mg, By Mouth, Daily Paroxetine 20 mg Tablet (Paroxetine) ??20 mg, By Mouth, Daily Pyridoxine 50 mg Tablet (Vitamin B6 50 mg oral tablet) ??50 mg, By Mouth, Daily Spironolactone 25 mg Tablet (spironolactone 25 mg oral tablet) ??25 mg, By Mouth, Daily Thiamine 100 mg Tablet (Vitamin B1 100 mg oral tablet) ??100 mg, By Mouth, Daily Trazodone 50 mg Tablet (traZODone 50 mg oral tablet) ??100 mg, By Mouth, Daily at bedtime CONTINUOUS: (0) PRN: (8) Dextromethorphan-Guaifenesin 20 mg-200 mg/10 mL Liqu UD (Robitussin DM Liquid) ??10 mL, By Mouth, Every 4 hours Docusate Sodium 100 mg Capsule (Docusate Sodium Capsule) ??100 mg 1 capsule, By Mouth, 2 times a day HydrOXYzine HCL 10mg Tablet (hydrOXYzine hydrochloride 10 mg oral tablet) ??20 mg, By Mouth, 2 times a day Melatonin 3 mg Tablet (Melatonin Tablet) ??3 mg, By Mouth, Daily at bedtime NaCl 0.9% Flush 3ml (NaCL 0.9% Flush) ??3 mL, IV Push, Every 8 hours Polyethylene Glycol 17 Gm Powder (MiraLax Powder) ??17 Gm 1 pack/packet, By Mouth, Daily Senna Tablet ??8.6 mg 1 tablet, By Mouth, 2 times a day Simethicone 80 mg Chewable Tablet (Simethicone Tablet) ??80 mg, Chew, 3 times a day ? 72 Hour Antibiotic History Stopped Antibiotics Stop Date/Time Last Administered First Administered Rifaximin??550 mg, By Mouth, Once 07/12/2023 23:30 07/12/2023 23:30 07/12/2023 23:30 ? Results Recent Labs BLOOD COUNT & DIFF WBC 3.2 k/mm3 (Low)?? 07/13/2023 01:18 RBC 3.81 m/mm3 (Low)?? 07/13/2023 01:18 Hgb 11.7 Gm/dL (Low)?? 07/13/2023 01:18 Hct 35.3 % (Low)?? 07/13/2023 01:18 MCV 92.7 femtoliters ()?? 07/13/2023 01:18 MCH 30.7 pg ()?? 07/13/2023 01:18 MCHC 33.1 g/dL ()?? 07/13/2023 01:18 Platelet Count 103 k/mm3 (Low)?? 07/13/2023 01:18 RDW-SD 49.3 femtoliters (High)?? 07/13/2023 01:18 MPV 10.5 femtoliters ()?? 07/13/2023 01:18 Nucleated RBC (Automated) 0.0 #/100 WBC'S ()?? 07/13/2023 01:18 Abs. NRBC 0.0 k/mm3 ()?? 07/13/2023 01:18 Abs. Neut 1.7 k/mm3 ()?? 07/12/2023 17:10 Abs. Lymph 1.4 k/mm3 ()?? 07/12/2023 17:10 Abs. [place] 0.6 k/mm3 ()?? 07/12/2023 17:10 Abs. Eo 0.1 k/mm3 ()?? 07/12/2023 17:10 Abs. Baso 0.0 k/mm3 ()?? 07/12/2023 17:10 Neut % 43.2 % (Low)?? 07/12/2023 17:10 Lymph % 37.5 % ()?? 07/12/2023 17:10 [place] % 14.6 % (High)?? 07/12/2023 17:10 Eos % 3.6 % ()?? 07/12/2023 17:10 Baso % 0.8 % ()?? 07/12/2023 17:10 RBC Morphology SLIGHT ()?? 07/12/2023 17:10 Platelet Estimate DECREASED ()?? 07/12/2023 17:10 Imm Gran 0.3 % ()?? 07/12/2023 17:10 Abs. Imm Gran 0.0 k/mm3 ()?? 07/12/2023 17:10 ?? CHEM GENERAL Sodium 141 mmol/L ()?? 07/13/2023 01:22 Potassium 4.9 mmol/L ()?? 07/13/2023 01:22 Chloride 111 mmol/L (High)?? 07/13/2023 01:22 Bicarbonate Level 21 mmol/L (Low)?? 07/13/2023 01:22 Anion Gap 9 ()?? 07/13/2023 01:22 Glucose Level 113 mg/dL (High)?? 07/13/2023 01:22 BUN 13 mg/dL ()?? 07/13/2023 01:22 Creatinine-Blood 0.7 mg/dL ()?? 07/13/2023 01:22 Estimated GFR Creatinine 113 ML/MIN/1.73 M2 ()?? 07/13/2023 01:22 Calcium 9.3 mg/dL ()?? 07/13/2023 01:22 Magnesium 2.1 mg/dL ()?? 07/13/2023 01:22 Protein, Total 6.9 Gm/dL ()?? 07/13/2023 01:22 Albumin 3.3 Gm/dL (Low)?? 07/13/2023 01:22 AG Ratio 1.0 ()?? 07/12/2023 17:10 Alkaline Phosphatase 144 units/L (High)?? 07/13/2023 01:22 AST (SGOT) 45 units/L (High)?? 07/13/2023 01:22 ALT (SGPT) 27 units/L ()?? 07/13/2023 01:22 Bilirubin, Total 1.4 mg/dL (High)?? 07/13/2023 01:22 Bilirubin, Direct 0.4 mg/dL (High)?? 07/13/2023 01:22 Bilirubin, Indirect 1.0 mg/dL (High)?? 07/13/2023 01:22 ?? COAG INR 1.1 ()?? 07/12/2023 17:10 Protime (PT) 12.0 seconds (High)?? 07/12/2023 17:10 ?? MISC. CHEMISTRY Ammonia, Venous 80 ??mole/L (High)?? 07/13/2023 01:18 ?? URINE OTHER Est Creatinine Clearance 109.46 mL/min ()?? 07/13/2023 02:11 ? Abnormal Labs ?? BLOOD COUNT & DIFF ??Abs. Imm Gran ??0.0 k/mm3 () ??07/12/2023 17:10 ??Abs. NRBC ??0.0 k/mm3 () ??07/13/2023 01:18 ??Hct ??35.3 % (Low) ??07/13/2023 01:18 ??Hgb ??11.7 Gm/dL (Low) ??07/13/2023 01:18 ??Imm Gran ??0.3 % () ??07/12/2023 17:10 ??[place] % ??14.6 % (High) ??07/12/2023 17:10 ??Neut % ??43.2 % (Low) ??07/12/2023 17:10 ??Nucleated RBC (Automated) ??0.0 #/100 WBC'S () ??07/13/2023 01:18 ??Platelet Count ??103 k/mm3 (Low) ??07/13/2023 01:18 ??Platelet Estimate ??DECREASED () ??07/12/2023 17:10 ??RBC ??3.81 m/mm3 (Low) ??07/13/2023 01:18 ??RBC Morphology ??SLIGHT () ??07/12/2023 17:10 ??RDW-SD ??49.3 femtoliters (High) ??07/13/2023 01:18 ??WBC ??3.2 k/mm3 (Low) ??07/13/2023 01:18 ? CHEM GENERAL ??AG Ratio ??1.0 () ??07/12/2023 17:10 ??AST (SGOT) ??45 units/L (High) ??07/13/2023 01:22 ??Albumin ??3.3 Gm/dL (Low) ??07/13/2023 01:22 ??Alkaline Phosphatase ??144 units/L (High) ??07/13/2023 01:22 ??Bicarbonate Level ??21 mmol/L (Low) ??07/13/2023 01:22 ??Bilirubin, Total ??1.4 mg/dL (High) ??07/13/2023 01:22 ??Bilirubin, Indirect ??1.0 mg/dL (High) ??07/13/2023 01:22 ??Bilirubin, Direct ??0.4 mg/dL (High) ??07/13/2023 01:22 ??Chloride ??111 mmol/L (High) ??07/13/2023 01:22 ??Estimated GFR Creatinine ??113 ML/MIN/1.73 M2 () ??07/13/2023 01:22 ??Glucose Level ??113 mg/dL (High) ??07/13/2023 01:22 ? COAG ??Protime (PT) ??12.0 seconds (High) ??07/12/2023 17:10 ? MISC. CHEMISTRY ??Ammonia, Venous ??80 ??mole/L (High) ??07/13/2023 01:18 ? Note: Critical results are displayed in red. ? Assessment/Plan Chief Complaint: Confusion at [facility] ?? Diagnoses 1. ??Hepatic encephalopathy ??(K72.90) 2. ??Alcoholic hepatitis, cirrhosis ??(K70.10) 3. ??Pancytopenia ??(D61.818) 4. ??Esophageal varices s/p TIPS ??(K70.30) 5. ??Anxiety and depression; admission to [facility] in 06/2015 ??(F41.8) 6. ??Insomnia ??(G47.00) ?? 48-year-old male with past medical history of alcoholic cirrhosis, esophageal varices status post TIPS, sleep apnea, neuropathy, insomnia, legal blindness, history of polysubstance abuse, anemia, amongst others, who presents to? the emergency department from [facility] secondary to confusion, diagnosed with hepatic encephalopathy ?? Hepatic encephalopathy (K72.90):??Patient's confusion appears to be secondary to hepatic encephalopathy, with elevated ammonia level of 131 -Lactulose 30 g 3 times daily -Mentation improving, continue rifaximin, Lasix, spironolactone, clinical social worker to evaluate Monitor??electrolytes, LFTs??daily. No signs of SBP ? Alcoholic hepatitis, cirrhosis (K70.10):??Transaminitis with alkaline phosphatase 147, AST 44, bilirubin 1.4 Patient reports he is no longer drinking, currently staying at [facility] Continue acamprosate, thiamine, folic acid, pyridoxine, multivitamin, magnesium ?? Pancytopenia (D61.818):??Pancytopenia with WBC 3.8, RBC 4, H&H 12.5/37.5, platelets 94 Likely secondary to cirrhosis Continue to monitor daily ?? Esophageal varices s/p TIPS (K70.30):??Continue pantoprazole Trend H&H No evidence of active bleeding ?? Anxiety and depression (F41.8):??Continue home paroxetine,??hydroxyzine as needed ?? Insomnia (G47.00):??Continue home trazodone ?? VTE Prophylaxis:??Intermittent pneumatic compression boots ?VTE Prophylaxis Assessment:??VTE Prophylaxis Ordered ?? Code Status:??Full CODE STATUS, confirmed with patient ?Order Code Status:??Code Status Ordered ?? Discharge Planning:??Pending improvement in encephalopathy. ??Potentially??could be?? discharge plan on 07/14 EF mentation better.?? PT evaluation completed, recommendation is for??home with services. ? Electronically signed: ?? Chava Longo MD. ?Order Date/Time ??Order Action ??Order Name ??Order Detail ??07/13/2023 09:56 ??Order ??PT Eval Treat ??Prob: Weakness, Goal: Ambulation-Improve, Weight Bearing: As Tolerated, 07/13/23 9:56:00 EST ??07/13/2023 07:46 ??Order ??Change Attending, /DO ??Chava Longo MD, Tiger text until 5pm and then page cross cover form 5pm to 7am, 07/13/23 7:46:00 EST ??07/13/2023 07:42 ??Order ??Change AttendingMD/DO ??Chava Longo MD, Tiger text until 5pm and then page cross cover form 5pm to 7am, 07/13/23 7:42:00 EST ??07/13/2023 07:42 ??Discontinue ??Covering Physician/ESTEFANIA Beeper ??Covering Provider: Ryan CERVANTES, Charmaine Saenz, Pager Number: [phone], until 1am, then page cross coverage by geography, 07/12/23 22:25:00 EST ? Consult note * Sky WILSON, Lizzette Rivera: PERFORM Event Display: Consultation Note Authored Date: [id number] Patient: ??GEMA BASSETT ? Age:??48 Years?Sex:??Male?:??1975?? Chief Complaint Right hip??wound Reason for Consultation Right hip??wound History of Present Illness Patient is a 48-year-old male seen at the request of the medical service for evaluation of right hip wound. ??Patient was admitted??from [facility]'s home on 07/12 for confusion.?? HPI obtained from chart review and patient. ??Patient with history of right intertrochanteric hip fracture; s/p??right hip InterTAN (05/2022). ??Patient with history of recurrent falls??since then and sustained a deep abscess to rt hip in 03/2023; s/p I&D w/debridement of skin, subcutaneous tissue,??fascia, and muscle and placement of antibiotic beads (vancomycin and stimulan). ??Patient reports wound has slowly??been healing??since??incision and drainage; denies pain to the area. ??Patient unable??to recall??type of dressing that is applied to wound??site looks home. ??Patient??ambulates with assist of cane and rollator walker. ?? PMH: alcoholic cirrhosis, esophageal varices status post TIPS, sleep apnea, neuropathy, insomnia, legal blindness, polysubstance abuse, anemia,??systolic heart murmur,??hepatic encephalopathy,Sherie'soptic neuropathy, migraine, ANA LUISA ?? PSH: see HPI ?? Social Hx: Former alcohol use.?? Current drug use (cocaine/heroin).?? Current nicotine use: 1/2 PPD ?? FMH: Alcoholism: Brother Diabetes mellitus type 2: MGM/PGF HLD: Father HTN: Mother, father, PGM Throat cancer: PGF?? Review of Systems Constitutional:??Denies fever/chills. Eyes:??No vision changes ENT:??No hearing loss, sneezing, congestion, runny nose or sore throat. Respiratory:??No shortness of breath, cough. Cardiovascular:??No chest pain or palpitations. Gastrointestinal:??No anorexia, N/V/D, or abdominal pain. :??Denies??urinary incontinence Neurologic:??No headache, dizziness. Musculoskeletal:??No muscle or joint pain Skin:??No rash or itching. ??See HPI Physical Exam Vitals & Measurements T:??97.9?F?? TMIN:??97.9?F?? TMAX:??98.7?F?? HR:??75??(Peripheral)?? RR:??18?? BP:??130/84?? SpO2:??100%?? Constitutional:??WD/WN male??in no distress. Mental Status:??Alert/oriented to person, place. ??Not oriented to time Head: Normocephalic. Cardiac: RRR, +S1/S2. +murmur. ??No rub/gallop Respiratory: Unlabored breathing; on RA.??Lungs equal/clear to auscultation. Gastrointestinal: Abdomen soft, non-tender, +bowel sounds, protuberant. Neurologic: Moves all extremities x4 independently. Normal, coherent speech Skin: Warm, pink dry. No rashes or lesions. No petechiae or purpura.?? Musculoskeletal: No cyanosis or clubbing. Extremities:?? palpable??dorsalis pedis pulses bilaterally; palpable??posterior tibial pulses bilaterally. ??Wound to??right lateral hip measuring approximately 1 x 0.5 x 0.2??with pink hypergranulation tissue;??intact healed scar??proximal to wound. ??No point tenderness erythema edema??or induration noted.?? No drainage noted; wound open to air Psychiatric:??Euthymic mood, normal affect. Normal thought content, normal judgment. Assessment/Plan Assessment:??Pt w/PMH for alcoholic cirrhosis, esophageal varices status post TIPS, sleep apnea, neuropathy, insomnia, legal blindness, polysubstance abuse, anemia,??systolic heart murmur,??hepatic encephalopathy,Sherie's optic neuropathy, migraine, ANA LUISA ?? Delayed surgical wound healing (T81.89XA)?? Open wound of right hip (S71.001A):??Clean w/NS. Pat dry. Apply Skin Prep to periwound. Apply 1 layer of Adaptic followed by Aquacel Ag; cut both to size of wound. Cover w/gauze and secure w/mediporetape. Change QOD. PROCEDURE: Hypergranulation tissue treated??topically??with silver??nitrate stick??for cauterization. ??Patient tolerated procedure well without complications ?? Discharge Planning:??Recommend pt f/u with local wound care center upon discharge for wound/ulcer management. If referring to [facility], please??request through the [employer] list listed as a tab in the Inbox Summary section; select Wound Care - Scheduling to send a communication message requesting an appointment.? Please re-consult wound care MD/AP for deterioration in wound/skin status. ?? Thank you for allowing me to participate in the care of this patient,??I appreciate the opportunity to assist??in management. My assessment and??all recommendations??have been communicated??to the patient's primary team via this documentation. Please??feel free to reach out with any??concerns??or questions. ? Problem List/Past Medical History Ongoing AC joint derangement Alcohol abuse Alcoholic hepatitis, cirrhosis Anemia Anxiety and depression; admission to [facility] in 06/2015 Duodenal Ulcer; resolved ED (erectile dysfunction) Esophageal varices s/p TIPS Gynecomastia, male H/o Acute upper GI bleed due to variceal bleed H/O: substance abuse; reports sobriety since summer 2015 Heart murmur, systolic Hepatic encephalopathy History of substance abuse Insomnia Sherie's Optic neuropathy Migraine Neuropathy Normocytic anemia ANA LUISA (obstructive sleep apnea) Overweight Patellar contusion, seen by [facility] spring 2015 Vitamin D insufficiency Procedure/Surgical History ???TIPS - Transjugular intrahepatic portosystemic shunt (03/18/2015)???EGD (03/14/2015)???EGD (11/03/2014)???Laryngoscopy in 1988 Medications Inpatient acamprosate 333 mg oral delayed release tablet, 333 mg, By Mouth, 3 times a day amLODIPine 5 mg oral tablet, 5 mg, By Mouth, Daily Docusate Sodium Capsule, 100 mg= 1 capsule, By Mouth, 2 times a day, PRN folic acid 1 mg oral tablet, 1 mg, By Mouth, Daily furosemide 20 mg oral tablet, 20 mg, By Mouth, Every other day gabapentin 300 mg oral capsule, 300 mg, By Mouth, Daily at bedtime hydrOXYzine hydrochloride 10 mg oral tablet, 20 mg, By Mouth, 2 times a day, PRN lactulose 10 gm/15 ml oral syrup, 20 Gm= 30 mL, By Mouth, 3 times a day magnesium oxide 400 mg oral tablet, 400 mg, By Mouth, Daily Melatonin Tablet, 3 mg, By Mouth, Daily at bedtime, PRN MiraLax Powder, 17 Gm= 1 pack/packet, By Mouth, Daily, PRN Multivitamin Tablet, 1 tablet, By Mouth, Daily NaCL 0.9% Flush, 3 mL, IV Push, Every 8 hours NaCL 0.9% Flush, 3 mL, IV Push, Every 8 hours, PRN pantoprazole 40 mg oral delayed release tablet, 40 mg, By Mouth, Daily Paroxetine, 20 mg, By Mouth, Daily Robitussin DM Liquid, 10 mL, By Mouth, Every 4 hours, PRN Senna Tablet, 8.6 mg= 1 tablet, By Mouth, 2 times a day, PRN Simethicone Tablet, 80 mg, Chew, 3 times a day, PRN spironolactone 25 mg oral tablet, 25 mg, By Mouth, Daily traZODone 50 mg oral tablet, 100 mg, By Mouth, Daily at bedtime Vitamin B1 100 mg oral tablet, 100 mg, By Mouth, Daily Vitamin B6 50 mg oral tablet, 50 mg, By Mouth, Daily Home acamprosate 333 mg oral delayed release tablet, 333 mg= 1 tablet, By Mouth, 3 times a day, 4 refills amLODIPine 5 mg oral tablet, 1 tablet, By Mouth, Daily BACLOFEN 10MG TABS, See Instructions CALCIUM + D 500/400 TABS, 1 tablet, By Mouth, Daily Compression Stockings, See Instructions, 2 refills Diapers, See Instructions, 11 refills diclofenac 1% topical gel, See Instructions Disposable Underpads n39.498, See Instructions, 11 refills Eucerin Original Healing Cream, See Instructions, 11 refills fluticasone 50 mcg/inh nasal spray, See Instructions, 1 refills folic acid 1 mg oral tablet, 1 tablet, By Mouth, Daily furosemide 20 mg oral tablet, 20 mg= 1 tablet, By Mouth, Every other day, 3 refills gabapentin 300 mg oral capsule, 300 mg= 1 capsule, By Mouth, Daily at bedtime, 4 refills hydrOXYzine hydrochloride 10 mg oral tablet, 2 tablet, By Mouth, 2 times a day, PRN lactulose 10 gm/15 ml oral syrup, 20 Gm= 30 mL, By Mouth, 3 times a day magnesium oxide 400 mg oral tablet, See Instructions Melatonin 3 mg oral tablet, 1 tablet, By Mouth, Daily at bedtime, PRN pantoprazole 40 mg oral delayed release tablet, 1 tablet, By Mouth, Daily PARoxetine 10 mg oral tablet, 20 mg= 2 tablet, By Mouth, Daily R aircast ankle-stirrup support brace, See Instructions spironolactone 25 mg oral tablet, 1 tablet, By Mouth, Daily, 5 refills Tab-A-Jesse oral tablet, 1 tablet, By Mouth, Daily traZODone 50 mg oral tablet, 2 tablet, By Mouth, Daily at bedtime Urinal, See Instructions, 3 refills Vitamin B1 100 mg oral tablet, 1 tablet, By Mouth, Daily, 3 refills Vitamin B6 50 mg oral tablet, 1 tablet, By Mouth, Daily Walker, See Instructions Walker, See Instructions Xifaxan 550 mg oral tablet, See Instructions Allergies NSAIDs Tylenol??(Cirrhosis) aspirin??(Hx GI Bleed) ibuprofen??(Hx of GI Bleed) Social History Alcohol Use: Past. Frequency: Several times per day. Other: 18 beers per day. Previous treatment: Inpatient. Employment/School Status: Unemployed. 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 Exercise Exercise type: Walking. Home/Environment Living situation: Home with assistance. Lives with: Father, Mother. Nutrition/Health Diet: Low sodium. Sexual Sexually involved in last 6 months: No. Substance Abuse Use: Current. Type: Cocaine, Heroin. Tobacco Use: 10 or more cigarettes (1/2 pack or more)/day in last 30 days. Family History ASHD - Atherosclerotic heart disease: Negative: Mother, Father, Brother and Brother. Alcoholism: Brother and Brother.Negative: Mother and Father. Asthma: Negative: Mother, Father, Brother, Brother, Pat. Grandfather and Pat. Grandmother. COPD: Negative: Mother and Father. Congestive heart failure: Negative: Mother and Father. Depression: Negative: Mother, Father, Brother and Brother. Diabetes mellitus type I: Negative: Mother, Father, Brother and Brother. Diabetes mellitus type II: Mat. Grandmother and Pat. Grandfather.Negative: Mother, Father, Brother and Brother. Hyperlipidemia: Father.Negative: Mother. Hypertension: Mother, Father and Pat. Grandmother. Sherie's optic atrophy: Other. Migraine: Negative: Mother and Father. Optic neuropathy: Other. Throat cancer 27-MAR-2016 23:30:24<$>: Pat. Grandfather. Thyroid disease: Negative: Mother, Father, Brother and Brother. Immunizations Vaccine Date Status influenza virus vaccine, inactivated 04/09/2022 Given Comments : [facility]: ??[id number] SARS-CoV-2 (COVID-19) mRNA-1273 vaccine 04/08/2021 Recorded influenza virus vaccine, inactivated 03/10/2021 Recorded SARS-CoV-2 (COVID-19) mRNA-1273 vaccine 03/10/2021 Recorded influenza virus vaccine, inactivated 03/01/2020 Recorded hepatitis B adult vaccine 03/01/2020 Recorded Hepatitis B Vaccine (old term) 10/09/2019 Recorded influenza virus vaccine, inactivated 05/01/2019 Recorded tetanus/diphtheria/pertussis, acel(Tdap) 06/22/2018 Given influenza virus vaccine, inactivated 02/25/2018 Recorded influenza virus vaccine, inactivated 02/12/2018 Recorded influenza virus vaccine, inactivated 04/29/2017 Given Comments : [04/29/2017] [id number] influenza virus vaccine, inactivated 04/15/2016 Given tetanus/diphtheria/pertussis, acel(Tdap) 11/25/2015 Given pneumococcal 23-valent vaccine 03/16/2015 Given influenza virus vaccine, inactivated 03/16/2015 Given influenza virus vaccine, inactivated 03/12/2014 Given hepatitis B adult vaccine 02/28/2013 Given Comments : 3 RDINJ influenza virus vaccine, inactivated 02/28/2013 Given Comments : FLUARIX Hepatitis B Vaccine (old term) 09/08/2012 Given Comments : #2 Hepatitis B Vaccine (old term) 08/09/2012 Given Pneumococcal Vaccine (oldterm) 08/02/2012 Given Tet/diphth/pertussis, acel (oldterm) 08/02/2012 Given Note * Kimberley Pittman RN: PERFORM Event Display: Discharge/Transfer Note Hospital Authored Date: [id number] Nursing Discharge Note Entered On: 07/14/2023 14:16 EST Performed On: 07/14/2023 14:15 EST by Kimberley Pittman RN Nursing Discharge Note 2 Discharge Time : 07/14/2023 14:15 EST Discharge Level of Care at Discharge : Homehealth/VNA Discharge VNA/Hospice/Home Care(v001) : [facility] Salmeron [phone] Patient Left Unit Via : Wheelchair Patient Accompanied Off Unit with : Ambulance/Chair Van Personnel Handover Given to Transport Personnel : Yes DC Instructions Provided & Signed by Pt : No Patient Understands D/C Instructions : Yes Patient Instructions Discharge Signed : Yes Did Pt have Specialty Bed or Wound Vac : No Kimberley Pittman RN - 07/14/2023 14:15 EST * Marisa LEE, Aguilar Beyer: PERFORM Event Display: Discharge/Transfer Note Hospital Authored Date: Patient: ??GEMA BASSETT ? Age:??48 Years?Sex:??Male?:??1975?? Patient Information Discharge Location: 4 Primary Care Physician: Jany Baig DO Admit Date/Time: 07/12/23 22:18 Discharge Disposition Discharge Disposition: [facility] Facility[facility]hab Discharge Diagnosis Hepatic encephalopathy (K72.90) Alcoholic hepatitis, cirrhosis (K70.10) Pancytopenia (D61.818) Esophageal varices s/p TIPS (K70.30) Anxiety and depression; admission to [facility] in 06/2015 (F41.8) Insomnia (G47.00) Delayed surgical wound healing (T81.89XA) Open wound of right hip (S71.001A) Alcohol abuse Alcoholic hepatitis, cirrhosis Anemia Anxiety and depression; admission to [facility] in 06/2015 ED (erectile dysfunction) Esophageal varices s/p TIPS Gynecomastia, male Hepatic encephalopathy Sherie's Optic neuropathy Migraine Neuropathy ANA LUISA (obstructive sleep apnea) Patellar contusion, [facility] spring 2015 Vitamin D insufficiency ?? _ Discharge Medications Acamprosate (acamprosate 333 mg oral delayed release tablet)?1?tab(s)?333?Milligram?By Mouth?3 times a day?for 14?Days Amlodipine (amLODIPine 5 mg oral tablet)?1?tab(s)?By Mouth?Daily?^1R1. Diclofenac Topical (diclofenac 1% topical gel)?See Instructions?APPLY TOPICALLY TO AFFECTED AREA(S) FOUR TIMES A DAY NEEDED FOR PAIN (BULK) Durable Medical Equipment (Compression Stockings)?See Instructions?surgical, calf length 20-30 mm HgM79.89M79.606 Durable Medical Equipment (R aircast ankle-stirrup support brace)?See Instructions?Dx: R inversion ankle .409a Durable Medical Equipment (Walker)?See Instructions?2 wheeled Walker.Dx: Falls, gait abnormality Durable Medical Equipment (Urinal)?See Instructions?Dx: Cirrhoisis, ambulatory dysfunction, incontinency Durable Medical Equipment (Diapers)?See Instructions?Aduld Adjustable Pullups Sz L/XLuse 6 daily per 6 wk periodLON 99 mon39.48 Durable Medical Equipment (Disposable Underpads ?? n39.498)?See Instructions?2 daily per 6 wkperiod Durable Medical Equipment (Walker)?See Instructions?Use as needed Fluticasone Nasal (fluticasone 50 mcg/inh nasal spray)?See Instructions?USE 1 SPRAY(S) INTO EACH NOSTRIL TWICE A DAY Folic Acid (folic acid 1 mg oral tablet)?1?tablet?By Mouth?Daily?^1R1. Furosemide (furosemide 20 mg oral tablet)?20?Milligram?1?tablet?By Mouth?Every other day Gabapentin (gabapentin 300 mg oral capsule)?300?Milligram?1?capsule?By Mouth?Daily at bedtime?for 90?Days?note dose/frequency change HydrOXYzine (hydrOXYzine hydrochloride 10 mg oral tablet)?2?tab(s)?By Mouth?2 times a day?as needed? NEEDED FOR ANXIETY (VIAL) Lactulose (lactulose 10 gm/15 ml oral syrup)?30?Milliliter?20?gram?By Mouth?3 times a day Magnesium Oxide (magnesium oxide 400 mg oral tablet)?See Instructions?TAKE 1 TABLET BY MOUTH TWICE A DAY^1R1,1R4 Melatonin (Melatonin 3 mg oral tablet)?1?tab(s)?By Mouth?Daily at bedtime?as needed? NEEDED FOR INSOMNIA (PACKAGE IN TRAY)^1R4 Miscellaneous Rx (Eucerin Original Healing Cream)?See Instructions?apply 2 x a day for dry skindx: eczema ??L30.9 Miscellaneous Rx (CALCIUM + D 500/400 TABS)?1?tab(s)?By Mouth?Daily?^1R2. Miscellaneous Rx (BACLOFEN 10MG TABS)?See Instructions?TAKE ONE TABLET BY MOUTH THREE TIMES ADAY ^1R1,1R2,1R4 Multivitamin (Tab-A-Jesse oral tablet)?1?tab(s)?By Mouth?Daily?R1. Pantoprazole (pantoprazole 40 mg oral delayed release tablet)?1?tab(s)?By Mouth?Daily?^1R1. Paroxetine (PARoxetine 10 mg oral tablet)?20?Milligram?2?tablet?By Mouth?Daily?^1R1. Pyridoxine (Vitamin B6 50 mg oral tablet)?1?tablet?By Mouth?Daily?R1. Rifaximin (Xifaxan 550 mg oral tablet)?See Instructions?1 tablet By Mouth 4 times a day Spironolactone (spironolactone 25 mg oral tablet)?1?tablet?By Mouth?Daily?^1R2. Thiamine (Vitamin B1 100 mg oral tablet)?1?tablet?By Mouth?Daily Trazodone (traZODone 50 mg oral tablet)?2?tablet?By Mouth?Daily at bedtime?^2R4. ? Medications Started None Medications Discontinued None Doses Changed Lactulose dose increased to??30 g 3 times daily. Allergies Allergies ?(Active and Proposed Allergies Only) NSAIDs? (Severity: Unknown severity, Onset: Unknown) Tylenol? (Severity: Unknown severity, Onset: Unknown) ?Reactions: Cirrhosis ?Comments: pt advised not to take d/t underlying liver disease ibuprofen? (Severity: Unknown severity, Onset: Unknown) ?Reactions: Hx of GI Bleed ?Comments: pt advised not to take NSAIDs or Tylenol due to underlying liver disease. Also had GIside effects when took ?too much aspirin in the past. aspirin? (Severity: Unknown severity, Onset: Unknown) ?Reactions: Hx GI Bleed ?Comments: pt took too much in the past and had GI side effects ? Future Appointments Wednesday 1:30 PM EST ?? Where: [facility] Status: Pending 2023 11:00 AM EDT ?? With: Dillon LEE, Heron Kelley Where: [facility] [address] [place] [address]- Status: Pending Hospital Course 48-year-old male with a history of alcoholic cirrhosis, esophageal varices s/p TIPS, sleep apnea neuropathy, insomnia legal blindness, history of substance abuse, anemia who presented to the ED from a rest home secondary to confusion and was admitted for management of hepatic encephalopathy. ?? He was hemodynamically stable. There was no evidence of infection on admission. LFTs were elevated but at baseline. Patient is no longer actively drinking alcohol. He had an elevated ammonia level of131. No gross electrolyte abnormalities. The inciting event appears to be constipation. Patient only takes lactulose 15 g twice daily. He is already on rifaximin. Diuretics were initially held but then resumed. Patient was able to have more than 3 bowel movements a day with 30 g of lactulose 3 times daily. He will be discharged on this increased dose of lactulose to be titrated to have at least 3bowel movements daily. ?? Remainder of his chronic conditions were stable during this admission. Patient's mentation is slowly improving. He will be discharged back to the rest home and will need to follow-up with his primarycare physician. He has a scheduled endoscopy for variceal monitoring on 07/28. ?? Objective Measurements?? Height: 175 cm (07/14/23) Weight: 75.7 kg (07/13/23) Dry Weight: 61.3 kg (07/12/23) ? Vital Signs?? Temperature: 97.9 DegF (07/14/23 06:59:00) Temperature Route: Oral (07/14/23 06:59:00) Pulse Rate: 75 bpm (07/14/23 06:59:00) Respiratory Rate: 18 br/min (07/14/23 06:59:00) Systolic Blood Pressure: 130 mm Hg (07/14/23 08:18:00) Diastolic Blood Pressure: 84 mm Hg (07/14/23 08:18:00) Blood pressure sites: Arm, left (07/14/23 06:59:00) Mean Arterial Pressure: 91 mm Hg (07/14/23 06:59:00) Pulse Pressure: 34 mm Hg (07/14/23 06:59:00) Oxygen Saturation: 100 % (07/14/23 06:59:00) Mode of Delivery (Oxygen): Room air (07/14/23 06:59:00) Early Warning Score: 5 (07/14/23 08:19:37) ? . Physical Exam Constitutional:??Alert, in no acute distress. Head EENT: Extraocular muscle movement intact.??Moist mucous membranes.?? Neck: Supple. No JVD. Respiratory: Clear to auscultation. No wheezing or crackles. No use of accessory muscles. Cardiovascular: S1S2 regular. No murmurs, rubs or gallops. Gastrointestinal: Abdomen soft, non-tender, non-distended. Normal bowel sounds. Genitourinary: No CVA tenderness. Extremities: No lower extremity pitting??edema. No cyanosis or clubbing. Neurologic: Awake, alert, speech is slow. ??Oriented to??person and place.?? Asterixis present. ??No focal deficits.?? Patient was able to ambulate without difficulty. Skin: No rash. Psychiatric: Normal mood and affect Pending Results No Pending Results Follow-Up Appointments Added Follow Up ?Time Frame ?Comments Jovanni BLAS, Jany?3-5 day: call to discuss follow up visit Post Discharge Care Diet: ??Cardiac diet ?? Activity: ??Ambulate with assistance 3 times a day unless otherwise specified ?? Wound Care: ??Wound Site: rt hip Clean w/NS. Pat dry. Apply Skin Prep to periwound. Apply 1 layer of Adaptic followed by Aquacel Ag; cut both to size of wound. Cover w/gauze and secure w/medipore tape every other day Yes ?? Code Status: ??Full Resuscitation ?? Discharge ?07/14/23 10:57:00 EST Home Health Face to Face ^HomeHealthFTF Results Discharge Labs BLOOD COUNT & DIFF WBC 4.1 k/mm3 ()?? 07/14/2023 01:39 RBC 3.56 m/mm3 (Low)?? 07/14/2023 01:39 Hgb 10.9 Gm/dL (Low)?? 07/14/2023 01:39 Hct 32.1 % (Low)?? 07/14/2023 01:39 MCV 90.2 femtoliters ()?? 07/14/2023 01:39 MCH 30.6 pg ()?? 07/14/2023 01:39 MCHC 34.0 g/dL ()?? 07/14/2023 01:39 Platelet Count 106 k/mm3 (Low)?? 07/14/2023 01:39 RDW-SD 47.3 femtoliters (High)?? 07/14/2023 01:39 MPV 10.4 femtoliters ()?? 07/14/2023 01:39 Nucleated RBC (Automated) 0.0 #/100 WBC'S ()?? 07/14/2023 01:39 Abs. NRBC 0.0 k/mm3 ()?? 07/14/2023 01:39 Abs. Neut 1.6 k/mm3 ()?? 07/14/2023 01:39 Abs. Lymph 1.7 k/mm3 ()?? 07/14/2023 01:39 Abs. [place] 0.6 k/mm3 ()?? 07/14/2023 01:39 Abs. Eo 0.1 k/mm3 ()?? 07/14/2023 01:39 Abs. Baso 0.0 k/mm3 ()?? 07/14/2023 01:39 Neut % 39.6 % (Low)?? 07/14/2023 01:39 Lymph % 42.2 % ()?? 07/14/2023 01:39 [place] % 14.1 % (High)?? 07/14/2023 01:39 Eos % 2.9 % ()?? 07/14/2023 01:39 Baso % 1.0 % ()?? 07/14/2023 01:39 RBC Morphology SLIGHT ()?? 07/12/2023 17:10 Platelet Estimate DECREASED ()?? 07/12/2023 17:10 Imm Gran 0.2 % ()?? 07/14/2023 01:39 Abs. Imm Gran 0.0 k/mm3 ()?? 07/14/2023 01:39 ?? CHEM GENERAL Sodium 141 mmol/L ()?? 07/14/2023 01:39 Potassium 3.7 mmol/L ()?? 07/14/2023 01:39 Chloride 110 mmol/L (High)?? 07/14/2023 01:39 Bicarbonate Level 20 mmol/L (Low)?? 07/14/2023 01:39 Anion Gap 11 ()?? 07/14/2023 01:39 Glucose Level 105 mg/dL (High)?? 07/14/2023 01:39 BUN 14 mg/dL ()?? 07/14/2023 01:39 Creatinine-Blood 0.8 mg/dL ()?? 07/14/2023 01:39 Estimated GFR Creatinine 108 ML/MIN/1.73 M2 ()?? 07/14/2023 01:39 Calcium 8.7 mg/dL ()?? 07/14/2023 01:39 Magnesium 2.1 mg/dL ()?? 07/13/2023 01:22 Protein, Total 6.2 Gm/dL ()?? 07/14/2023 01:39 Albumin 3.1 Gm/dL (Low)?? 07/14/2023 01:39 AG Ratio 1.0 ()?? 07/14/2023 01:39 Alkaline Phosphatase 144 units/L (High)?? 07/14/2023 01:39 AST (SGOT) 45 units/L (High)?? 07/14/2023 01:39 ALT (SGPT) 27 units/L ()?? 07/14/2023 01:39 Bilirubin, Total 0.9 mg/dL ()?? 07/14/2023 01:39 Bilirubin, Direct 0.4 mg/dL (High)?? 07/13/2023 01:22 Bilirubin, Indirect 1.0 mg/dL (High)?? 07/13/2023 01:22 ?? COAG INR 1.1 ()?? 07/12/2023 17:10 Protime (PT) 12.0 seconds (High)?? 07/12/2023 17:10 ?? MISC. CHEMISTRY Ammonia, Venous 80 ??mole/L (High)?? 07/13/2023 01:18 ? URINE OTHER Est Creatinine Clearance 95.78 mL/min ()?? 07/14/2023 02:33 ? 37_ minutes spent on discharge * Zain LOUIE, Kimberley: PERFORM Event Display: Patient Education/Instruction Authored Date: Inpatient Adult Discharge Instructions [address] [address] Name: GEMA BASSETT : 1975 Visit: 07/12/2023 22:18:00 Current Date: 07/14/2023 11:29 Account: [id number] Inpatient Adult Discharge Instructions We would like to thank you for allowing us to assist you with your healthcare needs. The following includes patient education materials and information regarding your injury/illness. Our entire staffstrives to provide an excellent experience for our patients and their families. PLEASE ENSURE YOU FOLLOW-UP PER THE INSTRUCTIONS BELOW! ?? YOUR OPINION IS IMPORTANT TO US! Please complete the survey you may receive by mail or email. Your feedback will be used to make improvements to the healthcare experiences of our patients and their families. Surveys are administered by [employer], [employer]. ?? If further treatment with your primary care physician or another doctor is recommended, it is important for you to keep the appointment. Call your primary care physician or return to the Emergency Department immediately if your condition worsens, fails to improve, or new symptoms develop. If you need to find a doctor, you can call [facility] [facility] for a referral at [phone] or toll free at [phone]) or log in to [email or web address].. ?? [facility], in keeping with [facility] guidance, no longer requires face masks for staff, patientsor visitors in most situations. Similiar to time spent indoors at other locations, there is the chance that you were exposed to repiratory viruses during your time with us (such as flu or COVID-19). If you develop symptoms concerning for a viral respiratory infection, please seek testing (and treatment if indicated) from your medical provider or home test kit. ?? You can view and manage your care through the patient portal or by using a health care estefania of your choosing. [employer] is a website that allows you to securely view your medical information including your hospital discharge summary, office visit summaries, medications and follow-up visits. You can also request appointments, renew medications, and request access to your medical information using a health care estefania of your choosing, or just ask a question. You can enroll at [email or web address] or register during your next office visit. You have been discharged from [facility], Patient Care Unit: S64. If you have any questions regarding these instructions after you leave, please call us and we will be happy to assist you. [facility] Your Care Team Attending Physician Marisa LEE, Aguilar Beyer Discharging Providers Marisa LEE, Aguilar Beyer Reason for Admission Confusion at [facility] Your Diagnosis Hepatic encephalopathy Alcoholic hepatitis, cirrhosis Pancytopenia Anxiety and depression; admission to [facility] in 06/2015 Insomnia Esophageal varices s/p TIPS Delayed surgical wound healing Open wound of right hip Tests Performed Below is a partial list of the tests performed during your hospitalization. You may have had other tests and procedures not included in this list. Please discuss all test results with your provider. Ammonia Venous Basic Metabolic Panel CBC CBC w/ Differential Comprehensive Metabolic Panel INR LFT's Magnesium Level CT Head/Brain W/O Contrast Primary Care Provider Jany Baig DO Advance Directive Health Care Proxy on File Yes - Health Care Proxy Discharge Vitals Temperature: 97.9 DegF Height: 175 cm Pulse Rate: 75 bpm Weight: 75.7 kg Respiratory Rate: 18 br/min ?? Systolic Blood Pressure: 130 mm Hg ?? Diastolic Blood Pressure: 84 mm Hg ?? Oxygen Saturation: 100 % ?? Studies Pending All tests and labs ordered during this hospital stay have been completed unless listed below. Please discuss all pending results with your provider listed above in these instructions. ?? No incomplete studies found What to do next Instructions From Your Doctor Discharge Orders Diet:??Cardiac diet Activity:??Ambulate with assistance 3 times a day unless otherwise specified Wound Care:??Wound Site: rt hip Clean w/NS. Pat dry. Apply Skin Prep to periwound. Apply 1 layer ofAdaptic followed by Aquacel Ag; cut both to size of wound. Cover w/gauze and secure w/medipore tapeevery other day Yes Code Status:?? Full Resuscitation Scheduled Follow-Up Appointments Wednesday 1:30 PM EST ?? Where: [facility] Status: Pending 2023 11:00 AM EDT ?? With: Dillon LEE, Heron F Where: [facility] [address] [place] [address]- Status: Pending You Need to Schedule the Following Appointments Follow Up with??Jany Baig DO When:??Within 3-5 day: call to discuss follow up visit Where: ?? Discharge Medications GEMA BASSETT :1975 Visit Date:07/12/2023 Medications: Please continue your medications until treatment is completed or stopped by your provider. Medications not listed below should be discontinued. Discuss any questions related to medications with your provider. What How Much When Why Instructions Next Dose Changed Lactulose (lactulose 10 gm/ 15 ml oral syrup) 30 Milliliter Oral 3 times a day 07/14/23, 3pm Changed Miscellaneous Rx (BACLOFEN 10MG TABS) See instructions TAKE ONE TABLET BY MOUTH THREE TIMES A DAY ^1R1,1R2,1R4 ?? 07/14/23, 3pm Changed Miscellaneous Rx (CALCIUM + D 500/ 400 TABS) 1 tab(s) Oral Daily ^1R2. ?? 07/15/23, am Changed Miscellaneous Rx (Eucerin Original Healing Cream) See instructions apply 2 x a day for dry skin dx: eczema ??L30.9 ?? as prescribed Unchanged Acamprosate (acamprosate 333 mg oral delayed release tablet) 1 tab(s) Oral 3 times a day Duration: 14 Days 07/14/23, 3 pm Unchanged Amlodipine (amLODIPine 5 mg oral tablet) 1 tab(s) Oral Daily ^1R1. ?? 07/15/23, am Unchanged Diclofenac Topical (diclofenac 1% topical gel) See instructions APPLY TOPICALLY TO AFFECTED AREA(S) FOUR TIMES A DAY NEEDED FOR PAIN (BULK) ?? as needed Unchanged Fluticasone Nasal (fluticasone 50 mcg/ inh nasal spray) See instructions USE 1 SPRAY(S) INTO EACH NOSTRIL TWICE A DAY ?? 07/14/23, evening Unchanged Folic Acid (folic acid 1 mg oral tablet) 1 tab(s) Oral Daily ^1R1. ?? 07/15/23 am Unchanged Furosemide (furosemide 20 mg oral tablet) 1 tab(s) Oral Every other day 07/15/23, am Unchanged Gabapentin (gabapentin 300 mg oral capsule) 1 capsule Oral Daily at Bedtime Duration: 90 Days note dose/ frequency change ?? 07/14/23, bedtime Unchanged HydrOXYzine (hydrOXYzine hydrochloride 10 mg oral tablet) 2 tab(s) Oral Twice a day as needed for NEEDED FOR ANXIETY (VIAL) 07/14/23, after 5 pm as needed Unchanged Magnesium Oxide (magnesium oxide 400 mg oral tablet) See instructions TAKE 1 TABLET BY MOUTH TWICE A DAY^1R1,1R4 ?? 06/16/23, evening dose Unchanged Melatonin (Melatonin 3 mg oral tablet) 1 tab(s) Oral Daily at Bedtime as needed for NEEDED FOR INSOMNIA (PACKAGE IN TRAY)^1R4 as needed for sleep 07/14/23 Unchanged Multivitamin (Tab-A-Jesse oral tablet) 1 tab(s) Oral Daily R1. ?? 07/15/23, am Unchanged Pantoprazole (pantoprazole 40 mg oral delayed release tablet) 1 tab(s) Oral Daily ^1R1. ?? 07/15/23, am Unchanged Paroxetine (PARoxetine 10 mg oral tablet) 2 tab(s) Oral Daily ^1R1. ?? 07/15/23am Unchanged Pyridoxine (Vitamin B6 50 mg oral tablet) 1 tab(s) Oral Daily R1. ?? 07/15/23, am Unchanged Rifaximin (Xifaxan 550 mg oral tablet) See instructions 1 tablet By Mouth 4 times a day ?? 07/14/23, 3 pm Unchanged Spironolactone (spironolactone 25 mg oral tablet) 1 tab(s) Oral Daily ^1R2. ?? 07/15/23, am Unchanged Thiamine (Vitamin B1 100 mg oral tablet) 1 tab(s) Oral Daily 07/15/23, am Unchanged Trazodone (traZODone 50 mg oral tablet) 2 tab(s) Oral Daily at Bedtime ^2R4. ?? 07/14/23, bedtime Test Results Below is a partial list of the most recent Laboratory test results done prior to this discharge. You may have had other tests and procedures not included in this list. Please discuss all test resultswith your provider. Est Creatinine Clearance - 95.78 mL/min (07/14/2023) Ammonia Venous (07/13/2023) ???Ammonia, Venous - 80 ??mole/L Basic Metabolic Panel (07/13/2023) ???Sodium - 141 mmol/L???Potassium - 4.9 mmol/L???Chloride - 111 mmol/L???Bicarbonate Level - 21 mmol/L???Anion Gap - 9???Glucose Level - 113 mg/dL???BUN - 13 mg/dL???Creatinine-Blood - 0.7 mg/dL???Estimated GFR Creatinine - 113 ML/MIN/1.73 M2???Calcium - 9.3 mg/dL CBC (07/13/2023) ???WBC - 3.2 k/mm3???RBC - 3.81 m/mm3???Hgb - 11.7 Gm/dL???Hct - 35.3 %???MCV - 92.7 femtoliters???MCH - 30.7 pg???MCHC - 33.1 g/dL???Platelet Count - 103 k/mm3???RDW-SD - 49.3 femtoliters???MPV - 10.5 femtoliters???Nucleated RBC (Automated) - 0.0 #/100 WBC'S???Abs. NRBC - 0.0 k/mm3 CBC w/ Differential (07/14/2023) ???WBC - 4.1 k/mm3???RBC - 3.56 m/mm3???Hgb - 10.9 Gm/dL???Hct - 32.1 %???MCV - 90.2 femtoliters???MCH - 30.6 pg???MCHC - 34.0 g/dL???Platelet Count - 106 k/mm3???RDW-SD - 47.3 femtoliters???MPV - 10.4 femtoliters???Nucleated RBC (Automated) - 0.0 #/100 WBC'S???Abs. NRBC - 0.0 k/mm3???Abs. Neut - 1.6 k/mm3???Abs. Lymph - 1.7 k/mm3???Abs. [place] - 0.6 k/mm3???Abs. Eo - 0.1 k/mm3???Abs. Baso - 0.0 k/mm3???Neut % - 39.6 %???Lymph % - 42.2 %???[place] % - 14.1 %???Eos % - 2.9 %???Baso % - 1.0 %???Imm Gran - 0.2 %???Abs. Imm Gran - 0.0 k/mm3 Comprehensive Metabolic Panel (07/14/2023) ???Sodium - 141 mmol/L???Potassium - 3.7 mmol/L???Chloride - 110 mmol/L???Bicarbonate Level - 20 mmol/L???Anion Gap - 11???Glucose Level - 105 mg/dL???BUN - 14 mg/dL???Creatinine-Blood - 0.8 mg/dL???Estimated GFR Creatinine - 108 ML/MIN/1.73 M2???Calcium - 8.7 mg/dL???Protein, Total - 6.2 Gm/dL???Al bumin - 3.1 Gm/dL???AG Ratio - 1.0???Alkaline Phosphatase - 144 units/L???AST (SGOT) - 45 units/L???ALT (SGPT) - 27 units/L???Bilirubin, Total - 0.9 mg/dL INR (07/12/2023) ???INR - 1.1???Protime (PT) - 12.0 seconds LFT's (07/13/2023) ???Protein, Total - 6.9 Gm/dL???Albumin - 3.3 Gm/dL???Alkaline Phosphatase - 144 units/L???AST (SGOT) - 45 units/L???ALT (SGPT) - 27 units/L???Bilirubin, Total - 1.4 mg/dL???Bilirubin, Direct - 0.4 mg/dL???Bilirubin, Indirect - 1.0 mg/dL Magnesium Level (07/13/2023) ???Magnesium - 2.1 mg/dL Allergies (NKA means No Known Allergies) NSAIDs Tylenol??(Cirrhosis) aspirin??(Hx GI Bleed) ibuprofen??(Hx of GI Bleed) Problems Active Problems??(22) AC joint derangement?? Alcohol abuse?? Alcoholic hepatitis, cirrhosis?? Anemia?? Anxiety and depression; admission to [facility] in 06/2015?? ED (erectile dysfunction)?? Esophageal varices s/p TIPS?? Gynecomastia, male?? H/o Acute upper GI bleed due to variceal bleed?? H/O: substance abuse; reports sobriety since summer 2015?? Heart murmur, systolic?? Hepatic encephalopathy?? History of substance abuse?? Insomnia?? Sherie's Optic neuropathy?? Migraine?? Neuropathy?? Normocytic anemia?? ANA LUISA (obstructive sleep apnea)?? Overweight?? Patellar contusion, seen by IBRAHIMA spring 2015?? Vitamin D insufficiency?? Education Materials Below is the list of Educational Leaflet Providered with your Discharge Instructions. Valuables and Belongings I fully understand and agree that [facility] accepts no responsibility for all my personal property including clothing, toilet articles, radios, jewelry, dentures, hearing aids, rings, money, or any other property that is in my possession or is brought to me after admission. I understand certain valuables may be placed in a hospital safe for a short period of time. I understand that the hospital is not liable for loss or damage due to accident, fire, or other natural occurrence while said property is in the safe. I accept full responsibility for any personal property that I keep with me, and will not hold the hospital responsible in case of loss or disappearance. I acknowledge that i have been encouraged to send valuables and belongings home. ?? Review of Valuable and Belonging List: With patient Date for Pt to Sign Valuables/Belongings: 07/13/23 00:50:00 ?? Other Discharge Information ? Case Management Discharge Plan?? Discharge Plan?? Discharge Agency Information?? Discharge Level of Care at Discharge: Homehealth/VNA Name of Agency #1: [facility] Discharge Transportation Arranged: [facility] [address] [facility] [id number] [phone] Agency Manager Quality Systems #1: Admission Mode of Transportation Arranged: Chair Van Service Start Date and Time #1: 07/14/23 13:30:00 Discharge Arranged Transport Date/Time: 07/14/23 13:30:00 Service Categories #1: Physical Therapy, Correction Discharge VNA/Hospice/Home Care: [facility] [phone] Service Comments #1: You are being discharged with Home Health Care. ??If you do not hear from themwithin 48hrs please call them directly. ?? Name of Person Notified of Transfer: Marilee - HCP and Patient ?? Pulmonary Rehab Status?? Pulmonary Rehab Discharge Status?? Respiratory Rate: 18 br/min ? Common Emergency Awareness Tips IS IT A STROKE? Act FAST and Check for these signs: FACE Does the face look uneven? ARM Does one arm drift down? SPEECH Does their speech sound strange? TIME Call at any sign of stroke ?? Heart Attack Signs Chest discomfort: Most heart attacks involve discomfort in the center of the chest and lasts more than a few minutes, or goes away and comes back. It can feel like uncomfortable pressure, squeezing, fullness or pain. Discomfort in upper body: Symptoms can include pain or discomfort in one or both arms, back, neck, jaw or stomach. Shortness of breath: With or without discomfort. Other signs: Breaking out in a cold sweat, nausea, or lightheaded. Remember, MINUTES DO MATTER. If you experience any of these heart attack warning signs, call to get immediate medical attention! ?? Smoking can increase your chances of developing chronic health problems and can cause harmful effects to other family members in your house. If you smoke, you are strongly encouraged to quit. Please call [facility] at [phone] or [phone] ([phone]) or log in to [email or web address] for referrals to smoking cessation programs. ?? 528 Suicide & Crisis Lifeline is available 04/01 if you or someone you know needs to find a reason to keep living. By calling 424 you'll be connected to a skilled, trained counselor at a crisis center in your area. INPATIENT DISCHARGE INSTRUCTIONS SIGNATURE PAGE GEMA BASSETT Location:[facility] Registration Date and Time:07/12/2023 22:18 EST Primary Care Physician: Jany Baig DO, Attending Physician: Marisa LEE, Aguilar Beyer, I GEMA BASSETT, have received the above patient education materials/instructions and have verbalized understanding. If ambulance or transport services are being used I further acknowledge being given a choice of service. ?? If you need to contact me, please call me at this number: . Patient/Tree Thinner Name: Patient/Tree Thinner Signature: Relationship to Patient: Witness Name/Signature: Date: * Kimberley Pittman RN: PERFORM Event Display: Patient Education Leaflets Authored Date: [id number] Lactulose Oral Solution ?? [id number] Lactulose Oral Solution Brands: Constulose Uses This medicine is used for the following purposes: ??? abnormal brain function ??? bowel movement ??? high ammonia levels ?? Instructions Drink the medicine. This medicine may be taken with or without food. Keep the medicine at room temperature. Avoid heat and direct light. Do not take this medicine with antacids. If you are using this medicine regularly, it is important to take each dose of medicine on time. Keep taking the medicine even if you feel well. If you forget to take a dose on time, take it as soon as you remember. If it is almost time for thenext dose, do not take the missed dose. Return to your normal schedule. Do not take 2 doses at one time. Tell your doctor and pharmacist about all your medicines. Include prescription and rtmw-[id number], vitamins, and herbal medicines. ?? Cautions Tell your doctor and pharmacist if you ever had an allergic reaction to a medicine. Do not use the medication any more than instructed. It is unknown if this medicine passes into breast milk. Ask your doctor before . During , this medicine should be used only when clearly needed. Talk to your doctor about the risks and benefits. Do not start or stop any other medicines without first speaking to your doctor or pharmacist. Do not share this medicine with anyone who has not been prescribed this medicine. ?? Side Effects The following is a list of some common side effects from this medicine. Please speak with your doctor about what you should do if you experience these or other side effects. ??? excess gas ??? nausea ??? stomach upset or abdominal pain Call your doctor or get medical help right away if you notice any of these more serious side effects: ??? diarrhea A few people may have an allergic reaction to this medicine. Symptoms can include difficulty breathing, skin rash, itching, swelling, or severe dizziness. If you notice any of these symptoms, seek medical help quickly. ?? Extra Please speak with your doctor, nurse, or pharmacist if you have any questions about this medicine. ?? [email or web address] IMPORTANT NOTE: This document tells you briefly how to take your medicine, but it does not tell youall there is to know about it. Your doctor or pharmacist may give you other documents about your medicine. Please talk to them if you have any questions. Always follow their advice. There is a more complete description of this medicine available in [place]. Scan this code on your smartphone or tablet or use the web address below. You can also ask your pharmacist for a printout. If you have any questions, please ask your pharmacist. The display and use of this drug information is subject to Terms of Use. Copyright(c) 2022 [employer]. ?? [employer]. All rights reserved. This information is not intended as a substitute for professional medical care. Always follow your healthcare professional's instructions. ?? * Kimberley Pittman RN: PERFORM Event Display: Patient Education Leaflets Authored Date: Zones Hepatic Encephalopathy ?? 406 HEPATIC ENCEPHALOPATHY ZONES EVERY DAY Hepatic Encephalopathy is a condition that lowers the liver???s ability to clean waste from the blood causing your brain and other organs to not work well. ?? EVERY DAY: ??? Be sure to make a visit with your doctor/nurse within a few days. ??? Take your medicine as prescribed. ??? Try to limit the amount of salt you use. ??? No alcohol or limit amount you drink. ??? Call your doctor if you have any questions about your illness or medicines. ?? Which Zone are you today? GREEN, YELLOW, or RED? GREEN ZONE ALL CLEAR - This zone is your goal Your symptoms are under control when: ??? You have no periods of confusion. ??? You have no vomiting. ??? You are having 2-3 bowel movements per day (having bowel movements helps to get rid of toxinsin your body). ??? You have no trouble breathing. YELLOW ZONE ?? STOP & CALL CAUTION - This zone is a warning.?? If you have any of the following: Call your Doctor/Nurse: ??? You have a fever higher than 100.4 F???. ??? You are sleeping more than usual. ??? You have any questions about your disease or medicines. ??? Your abdomen (belly) is bigger or harder than usual. RED ZONE EMERGENCY: Speak with a Doctor/Nurse promptly if you have any of the following: (Do not drive yourself) ??? You have problems thinking clearly. ??? You have trouble breathing all of the sudden. ??? You just had a seizure. ??? You have a fast heartbeat or trouble breathing. ??? You feel confused, dizzy, or lightheaded. ? * Kimberley Pittman RN: PERFORM Event Display: Patient Education Leaflets Authored Date: [id number] Understanding Hepatic Encephalopathy (HE) ?? 33615 Understanding Hepatic Encephalopathy (HE) Hepatic encephalopathy (HE) is a brain disease that occurs when toxins that are normally cleared bythe liver build up in the brain. It happens more in people with the liver disease cirrhosis. It cancause mild symptoms that are hard to notice. But over time, it may cause symptoms such as memory changes and confusion. But symptoms can go away if HE is treated early. How to say it [id number] ?? What causes hepatic encephalopathy? Researchers don???t know all the reasons HE happens. But they know HE is caused by toxins that stayin the body too long. These are normally cleared out of the body by the liver. But when the liver doesn???t work normally, these harmful substances stay in the blood and travel to the brain. This leads to damage in the brain. It can also cause swelling and pressure in the brain. You're more at risk for HE if you have any of these: ??? Damaged and scarred liver (cirrhosis) ??? Sudden liver failure from an infection or other cause??? Chronic liver disease. This can be from alcohol- related liver disease or non-alcoholic fatty liver disease (NAFLD). ??? Portosystemic shunt. This happens when circulating blood bypasses the liver. It's also called a liver shunt. The liver normally removes toxins from the blood. But with a livershunt, toxins build up in the blood and aren't cleared from the body. A liver shunt can be present at or can happen later. If you have liver disease, the symptoms of HE can happen suddenly if you have any of these: ??? Bleeding in the stomach or intestines ??? Constipation ??? Fluid loss (dehydration) ??? Infection ??? Use of sleep medicines ??? Use of antidepressant medicines ??? Surgery ?? Symptoms of hepatic encephalopathy HE may happen slowly over time if you have liver disease. The symptoms may be mild at first, and come and go. HE can cause symptoms such as: ??? Mood changes ??? Trouble sleeping ??? Trouble paying attention ??? Memory problems In severe cases, HE can cause: ??? Low energy and tiredness (lethargy) ??? Slurred speech ??? Confusion ??? Severe anxiety ??? Trouble thinking ??? Trouble doing physical tasks ??? Impulsive behavior??? Shaking of hands or arms (called flapping) ?? Diagnosing hepatic encephalopathy Your healthcare provider will ask about your symptoms and health history. They'll ask if you've been exposed to medicines or toxins that cause HE. You may have tests such as: ??? Blood tests. These check for infection and low liver function. ??? Urine tests. These look for infection and how well your kidneys are working. ??? Paracentesis. This is a procedure where a small needle is used to removeextra fluid from your belly (abdomen). The fluid may be tested for infection. ??? Imaging tests of the brain. An MRI or CT scan of the brain may be done. This is to see if your symptoms are caused bya different problem in the brain, such as a tumor. ??? Electroencephalogram (EEG). This test looks at the electrical activity in the brain. ?? Treatment for hepatic encephalopathy Treatment will depend on your symptoms, your age, and your general health. It will also depend on how severe the condition is, and what's causing your HE. Your treatment may include: ??? Medicine to treat infection ??? Medicine to control bleeding ??? Stopping medicines that may cause symptoms ??? Antibiotics and lactulose, which can help fewer toxins be absorbed in your gut ??? Treating kidney problems Talk with your healthcare providers about the risks, benefits, and possible side effects of all medicines. ?? Possible complications of hepatic encephalopathy Untreated, HE can lead to coma and . ?? When to call your healthcare provider Call your healthcare provider if you have any of the following: ??? Fever of 100.4??F (38??C) or higher, or as directed by your provider ??? Symptoms that don???t get better, or that get worse ??? New symptoms ?? Last Reviewed Date: 2021 ?? 5070-2851 The [employer]. All rights reserved. This information is not intended as a substitute for professional medical care. Always follow your healthcare professional's instructions. ?? Patient Care team information Care Team Personnel Name: Shira Galindo RN Position: [facility] RN Member Role: Primary Care Nurse Name: Alexandra Colmenares RN Position: [facility] RN W/OE and Tasks Member Role: Primary Care Nurse Name: Garima Manzano RN Position: S RN Member Role: Primary Care Nurse Name: Malgorzata Marinelli RN Position: [facility] RN Member Role: Primary Care Nurse Name: Joyce Roach RN Position: [facility] ED RN W/OE and Tasks Member Role: Primary Care Nurse Name: Mary Suazo RN Position: [facility] RN Member Role: Primary Care Nurse Name: Maria Esther Craig LPN Position: [facility] RN Member Role: Primary Care Nurse Name: Andres Pressley RN Position: [facility] ED RN W/OE and Tasks Member Role: Primary Care Nurse Name: Jany Baig DO Position: [facility] Physician - Primary Care Member Role: PCP Address: Address: [address] [place] [address] [facility] [place] [address]- Name: Kaye Payne RN Position: [facility] RN Member Role: Primary Care Nurse Name: Garima Hutchinson Position: [facility] RN Member Role: Primary Care Nurse Name: Malgorzata Austin Position: [facility] RN Member Role: Primary Care Nurse Name: Ibeth Adams RN Position: [facility] RN Member Role: Primary Care Nurse Name: Torrie Hernandez RN Position: [facility] OB RN Member Role: Primary Care Nurse Name: Gretchen Knutson RN Position: [facility] SN RN Member Role: Primary Care Nurse Name: Aislinn Mckee RN Position: [facility] RN Member Role: Primary Care Nurse Name: Ashley Mcelroy Position: [facility] RN Member Role: Primary Care Nurse Name: Ashok Kevin RN Position: [facility] RN Member Role: Primary Care Nurse Name: Cody Garcia Position: [facility] Associate Professional Member Role: [employer] Provider Address: Address: [address] [place] [id number]- Name: Paige Nascimento RN Position: [facility] RN Member Role: Primary Care Nurse Name: Ge Covarrubias RN Position: [facility] RN Member Role: Primary Care Nurse Name: Orin Elmore RN Position: [facility] ED RN W/OE and Tasks Member Role: Primary Care Nurse Name: Allegra Liu RN Position: [facility] SN RN Member Role: Primary Care Nurse Name: Shayan Pandya MD Position: [facility] Renal MD Member Role: [employer] Physician Address: Address: [address] [facility] [place] [address]- Name: Kimberley Pittman RN Position: S RN Member Role: Primary Care Nurse Name: Darlene Rodrigez RN Position: S RN Member Role: Primary Care Nurse Name: Ingrid Verdugo RN Position: S RN Member Role: Primary Care Nurse Name: Monica Rowell RN Position: S RN Member Role: Primary Care Nurse Name: Jimi Fitzpatrick RN Position: S RN Member Role: Primary Care Nurse Care Team Related Persons Name: MARLEN BASSETT Address: [address] [place] [address] Name: MARLEN BASSETT Address: [address] [place] [address] Name: NICK BASSETT Name: GEMA BASSETT Address: home [address] [place] [address]
--- OUTSIDE RECORDS SUMMARY | 2023-12-15 20:47 | XMS_ITS | Continuity of Care Document ---
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 [employer] Name Role Phone Jany Baig DO Primary Care Physician Encounter [facility] Date(s): 02/18/22 - 03/21/22 [facility] [address] [place] [address]- Attending Physician: Cristofer Steiner MD Admitting Physician: [...] Refusal Reason SARS-CoV-2 (COVID-19) mRNA-1273 vaccine 04/08/21 R ecorded SARS-CoV-2 (COVID-19) mRNA-1273 vaccine 03/10/21 R ecorded influenza virus vaccine, inactivated 03/10/21 Nikhil rded influenza virus vaccine, inactivated 03/01/20 Nikhil rded influenza virus vaccine, inactivated 05/01/19 Nikhil rded influenza virus vaccine, inactivated 02/25/18 Nikhil rded influenza virus vaccine, inactivated 02/12/18 Nikhil rded influenza virus vaccine, inactivated 1 04/29/17 Gi cleopatra influenza virus vaccine, inactivated 04/15/16 Give n influenza virus vaccine, inactivated 03/16/15 Give n influenza virus vaccine, inactivated 03/12/14 Give n influenza virus vaccine, inactivated 2 02/28/13 Gi cleopatra hepatitis B adult vaccine 03/01/20 Recorded hepatitis B adult vaccine 3 02/28/13 Given Hepatitis B Vaccine (old term) 10/09/19 Recorded Hepatitis B Vaccine (old term) 4 09/08/12 Given Hepatitis B Vaccine (old term) 08/09/12 Given tetanus/diphtheria/pertussis, acel(Tdap) 06/22/18 Given tetanus/diphtheria/pertussis, acel(Tdap) 11/25/15 Given pneumococcal 23-valent vaccine 03/16/15 Given Pneumococcal Vaccine (oldterm) 08/02/12 Given Tet/diphth/pertussis, acel (oldterm) 08/02/12 Give n 1Result Comment: [04/29/2017] 80207-393-23 2Admin Note: FLUARIX 3Admin Note: 3 RDINJ 4Admin Note: #2 Medications acetaminophen 500 mg oral tablet 1 tablet, By Mouth, 4 times a day, PRN NEEDED FOR PAIN, MAX 4, PER DAY (VIAL., # 50 tablet, 11 Refills, Maintenance, 03/13/22 8:37:00 EDT, [email or web address], 175, cm, 01/06/22 10:34:00 EDT, Height, 78.3, kg, 12/26/21 19:05:00 EDT, Dry Weight Start Date: 03/13/22 Status: Ordered amLODIPine 5 mg oral tablet 5 mg, 1, tablet, By Mouth, Daily, # 30 tablet, Refills 5, Tot. Refills 5, Maintenance, 10/21/21 10:15:00 EDT, Route to Pharmacy Electronically, [email or web address], Partial fill upon patient request if the prescription is for a schedule II opioid drug.... Start Date: 10/21/21 Status: Ordered Co Q-10 100 mg oral capsule 1 capsule, By Mouth, 4 times a day, # 120 capsule, 5 Refills, Maintenance, 02/18/22 12:44:00 EDT, [facility], 175, cm, 01/06/22 10:34:00 EDT, Height, 78.3, kg, 12/26/21 19:05:00 EDT, Dry Weight Start Date: 02/18/22 Status: Ordered Compression Stockings See Instructions, # 4 each, Refills 2, Tot. Refills 2, Maintenance, surgical, calf length 20-30 mm Hg M79.89 M79.606, 01/06/22 10:58:00 EDT, Supply Start Date: 01/06/22 Status: Ordered fluticasone 50 mcg/inh nasal spray See Instructions, USE 1 SPRAY(S) INTO EACH NOSTRIL TWICE A DAY, # 16 Gm, 5 Refills, Maintenance, 02/18/22 10:02:00 EDT, [facility], 30, USE 1 SPRAY(S) INTO EACH NOSTRIL TWICE A DAY, 175, cm, 01/06/22 10:34:00 EDT, Height, 78.3, kg, 12/26/21 19... Start Date: 02/18/22 Status: Ordered folic acid 1 mg oral tablet 1 mg, 1, tablet, By Mouth, Daily, # 90 tablet, Refills 4, Tot. Refills 4, Maintenance, 10/27/21 10:40:00 EDT, Route to Pharmacy Electronically, [facility], Partial fill upon patient request if the prescription is for a schedule II opioid drug.... Start Date: 10/27/21 Stop Date: 01/20/23 Status: Ordered furosemide 20 mg oral tablet 1, tablet, By Mouth, 2 times a day, # 60 tablet, Refills 2, Tot. Refills 2, Maintenance, 03/19/22 9:46:00 EDT, Route to Pharmacy Electronically, [facility], 175, cm, 01/06/22 10:34:00 EDT, Height, 78.3, kg, 12/26/21 19:05:00 EDT, Dry Weight Start Date: 03/19/22 Stop Date: 06/17/22 Status: Ordered gabapentin 300 mg oral capsule 600 mg, 2, capsule, By Mouth, Daily at bedtime, note dose change, # 180 capsule, Refills 4, Tot. Refills 4, Maintenance, 03/04/22 10:17:00 EDT, [id number] Partial fill upon patient request if the prescription... Start Date: 03/04/22 Stop Date: 05/28/23 Status: Ordered hydrOXYzine hydrochloride 25 mg oral tablet 1 TO 2 TABLETS, By Mouth, 3 times a day, PRN NEEDED FOR ANXIETY (VIAL), # 60 tablet, 11 Refills,Maintenance, 03/13/22 8:38:00 EDT, [facility], [facility], cm, 01/06/22 10:34:00 EDT, Height, 78.3, kg, 12/26/21 19:05:00 EDT, Dry Weight Start Date: 03/13/22 Status: Ordered lactulose 10 gm/15 ml oral syrup See Instructions, TAKE 30ML BY MOUTH THREE TIMES DAILY NEEDED TO ACHEIVE 3-4 BOWL MOVEMENTS PER DAY, # 3,000 mL, 10 Refills, [facility], 30, TAKE 30ML BY MOUTH THREE TIMES DAILY NEEDED TO ACHEIVE 3-4 BOWL MOVEMENTS PER DAY, 174, cm, 02/12... Start Date: 07/02/21 Status: Ordered lidocaine 0.5% topical gel 1 application, Topically, 3 times a day, # 120 Gm, 0 Refills, Acute 12/30/22 17:23:00 EDT, 12/30/2216:23:00 EDT, Gel, [facility], Partial fill upon patient request if the prescription is fora schedule II opioid drug., 1 application Topically... Start Date: 12/30/21 Stop Date: 12/30/22 Status: Ordered Lidoderm 5% film 1 patch, Topically, Daily, remove patches after 12 hours NSAIDS contraindicated High dose tylenol contraindicated, # 30 patch, 5 Refills, Maintenance, 12/26/21 9:33:00 EDT, [facility], Partial fill upon patient request if the prescription i... Start Date: 12/26/21 Status: Ordered magnesium oxide 400 mg oral tablet 1 tablet, By Mouth, 2 times a day, # 60 tablet, 11 Refills, Maintenance, 03/13/22 8:37:00 EDT, [facility], 175, cm, 01/06/22 10:34:00 EDT, Height, 78.3, kg, 12/26/21 19:05:00 EDT, Dry Weight Start Date: 03/13/22 Status: Ordered Melatonin 3 mg oral tablet 1 tablet, By Mouth, Daily at bedtime, PRN NEEDED FOR INSOMNIA (PACKAGE IN TRAY), # 60 tablet, 5 Refills, Maintenance, 06/02/21 16:17:00 EST, [facility], 28, 1 tablet By Mouth [...] Date: 10/21/21 Stop Date: 04/19/22 Status: Ordered Potassium Chloride (Eqv-K-Tab) 20 mEq oral tablet, extended release 2 tablet, By Mouth, Daily, # 60 tablet, 1 Refills, Maintenance, 03/13/22 12:37:00 EDT, [id number], 175, cm, 01/06/22 10:34:00 EDT, Height, 78.3, kg, 12/26/21 19:05:00 EDT, Dry Weight Start Date: 03/13/22 Status: Ordered pyridoxine 50 mg oral tablet 50 mg, 1, tablet, By Mouth, Daily, for 90 days, # 90 tablet, Refills 4, Tot. Refills 4, Acute 01/15/23 11:42:00 EDT, 10/22/21 11:42:00 EDT, Route to Pharmacy Electronically, [facility], Partial fill upon patient request [...] Refills, Maintenance, 03/12/22 17:21:00 EDT, Tablet, [facility] #[id number], Partial fill upon patient request if the prescription is for a schedule II opioid drug., 175, cm,... Start Date: 03/12/22 Status: Ordered Tab-A-Jesse oral tablet 1 tablet, By Mouth, Daily, # 90 tablet, 9 Refills, [facility], 28, TAKE 1 TABLET BY [...] Electronically, [facility], 175,cm, 01/06/22 10:34:00 EDT, Height, 78.3, kg, ... Start Date: 01/30/22 Status: Ordered traZODone 50 mg oral tablet See Instructions, TAKE 2-3 TABLETS BY MOUTH AT BEDTIME (ONE DOSE IN VIAL), # 90 tablet, Refills 5, Tot. Refills 5, Maintenance, 12/26/21 9:21:00 EDT, Instructions Replace Required Details, Route to Pharmacy Electronically, [facility], 170, cm,... Start Date: 12/26/21 Status: Ordered Vitamin B1 100 mg oral tablet 1, tablet, By Mouth, Daily, # 90 tablet, Refills 3, Maintenance, 03/13/22 8:37:00 EDT, Route to Pharmacy Electronically, [facility], 175, cm, 01/06/22 10:34:00 EDT, Height, 78.3, kg, 12/26/2218:05:00 EDT, Dry Weight Start Date: 03/13/22 Status: Ordered Xifaxan 550 mg oral tablet 1 tablet, By Mouth, 2 times a day, # 60 tablet, 2 Refills, [facility], 175, cm, 01/06/22 10:34:00 EDT, Height, 78.3, kg, 12/26/21 19:05:00 EDT, Dry Weight Start Date: 01/21/22 Status: Ordered Problem List Condition Confirmation Course [...] Personnel Name: Jany Baig DO Address: Address: [address] [place] [address] Adult [facility] Pediatric Medicine [place], [place] [address]
--- OUTSIDE RECORDS SUMMARY | 2023-12-15 20:48 | XMS_ITS | Continuity of Care Document ---
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 Name Role Phone Jany Baig DO Primary Care Physician Encounter 08/02/22 - 08/27/22 [facility] [address] [place] [address]- Allergies, Adverse Reactions, Alerts Substance Reaction Severity [...] 03/01/20 Recorded hepatitis B adult vaccine 4 9/17/13 Given Hepatitis B Vaccine (old term) 10/09/19 Recorded Hepatitis B Vaccine (old term) 5 09/08/12 Given Hepatitis B Vaccine (old term) 08/09/12 Given tetanus/diphtheria/pertussis, acel(Tdap) 06/22/18 Given tetanus/diphtheria/pertussis, acel(Tdap) 11/25/15 Given pneumococcal 23-valent vaccine 03/16/15 Given Pneumococcal Vaccine (oldterm) 08/02/12 Given Tet/diphth/pertussis, acel (oldterm) 08/02/12 Give n 1Result Comment: [facility]: [id number] 2Result Comment: [04/29/2017] [id number] 3Admin Note: FLUARIX 4Admin Note: 3 RDINJ 5Admin Note: #2 Medications acetaminophen 500 mg oral tablet 1 tablet, By Mouth, 4 times a day, PRN NEEDED FOR PAIN, MAX 4, PER DAY (VIAL., # 50 tablet, 11 Refills, Maintenance, 03/13/22 8:37:00 EDT, [facility], [facility], cm, 01/06/22 10:34:00 EDT, Height, 78.3, kg, 12/26/21 19:05:00 EDT, Dry Weight Start Date: 03/13/22 Status: Ordered amLODIPine 5 mg oral tablet See Instructions, TAKE 1 TABLET BY MOUTH ONCE A DAY^1R1, # 30 tablet, 5 Refills, Maintenance, 05/13/22 16:24:00 EST, [facility], 175, cm, 04/09/22 15:34:00 EDT, Height, 78.3, kg, 12/26/21 19:05:00 EDT, Dry Weight Start Date: 05/13/22 Status: Ordered baclofen 10 mg oral tablet See Instructions, TAKE 1 TABLET BY MOUTH THREE TIMES DAILY, # 90 tablet, Refills 0, Maintenance, 08/07/22 12:26:00 EST, Instructions Replace Required Details, Route to Pharmacy Electronically, [facility], 176, cm, 08/07/22 11:37:00 EST, Height... Start Date: 08/07/22 Status: Ordered Co Q-10 100 mg oral capsule See Instructions, TAKE 1 CAPSULE BY MOUTH FOUR TIMES DAILY, # 120 capsule, 6 Refills, Maintenance, 08/07/22 12:13:00 EST, [facility], 176, cm, 08/07/22 11:37:00 EST, Height, [...] Refills, Maintenance, 08/07/22 12:12:00 EST, [facility]/pharmacy #[id number], 30, USE 1 SPRAY(S) INTO EACH NOSTRIL TWICE A DAY, 176, cm,08/07/22 11:37:00 EST, Height, 79.8, kg, 07/31/22 2... Start Date: 08/07/22 Status: Ordered folic acid 1 mg oral tablet 1 mg, 1, tablet, By Mouth, Daily, # 90 tablet, Refills 4, Tot. Refills 4, Maintenance, 10/27/21 10:40:00 EDT, Route to Pharmacy Electronically, [facility], Partial fill upon patient request if the prescription is for a schedule II opioid drug.... Start Date: 10/27/21 Stop Date: 01/20/23 Status: Ordered furosemide 20 mg oral tablet See Instructions, TAKE 1 TABLET BY MOUTH ONCE A DAY^1R1, # 30 tablet, Refills 2, Maintenance, 08/07/22 12:27:00 EST, Instructions Replace Required Details, Route to Pharmacy Electronically, [facility], 176, cm, 08/07/22 11:37:00 EST, Height, 7... Start Date: 08/07/22 Status: Ordered furosemide 20 mg oral tablet 1, tablet, By Mouth, Daily, R1., # 30 tablet, Refills 5, Tot. Refills 5, Maintenance, 08/10/22 16:49:00 EST, Route to Pharmacy Electronically, [facility]/pharmacy #[id number], 176, cm, 08/07/22 11:37:00 EST, Height, 79.8, kg, 07/31/22 22:40:00 EST, Dry Weight Start Date: 08/10/22 Status: Ordered Gabapentin By Mouth, 0 Refills, Maintenance, 08/24/22 9:01:00 EDT, Partial fill upon patient request if the prescription is for a schedule II opioid drug. Start Date: 08/24/22 Status: Ordered gabapentin 300 mg oral capsule 2, capsule, By Mouth, Daily at bedtime, # 180 capsule, Refills 4, Maintenance, 08/10/22 16:53:00 EST, Route to Pharmacy Electronically, [id number], 176, cm, 08/07/22 11:37:00 EST, Height, 79.8, kg, 07/31/22 22:40:00 EST, Dry Weight Start Date: 08/10/22 Stop Date: 11/08/22 Status: Ordered hydrOXYzine hydrochloride 25 mg oral tablet 1 TO 2 TABLETS, By Mouth, Daily at bedtime, PRN NEEDED FOR ANXIETY (VIAL), # 60 tablet, 11 Refills, Maintenance, 03/13/22 8:38:00 EDT, [facility], 175, cm, 01/06/22 10:34:00 EDT, Height, 78.3, kg, 12/26/21 19:05:00 EDT, Dry Weight Start Date: 03/13/22 Status: Ordered lactulose 10 gm/15 ml oral syrup See Instructions, TAKE 30ML BY MOUTH THREE TIMES DAILY NEEDED TO ACHEIVE 3-4 BOWL MOVEMENTS PER DAY, # 3,000 mL, 10 Refills, [facility], 30, TAKE 30ML BY MOUTH THREE TIMES DAILY NEEDED TO ACHEIVE 3-4 BOWL MOVEMENTS PER DAY, 174, cm, 02/12... Start Date: 07/02/21 Status: Ordered Lidoderm 5% film 1 patch, Topically, Daily, remove patches after 12 hours NSAIDS contraindicated High dose tylenol contraindicated remove patches after 12 hours Rib fracture, # 30 patch, 5 Refills, Maintenance, 08/07/22 12:09:00 EST, [facility]/pharmacy #[id number], Partial f... Start Date: 08/07/22 Status: Ordered magnesium oxide 400 mg oral tablet 1 tablet, By Mouth, 2 times a day, # 60 tablet, 11 Refills, Maintenance, 03/13/22 8:37:00 EDT, [facility], 175, cm, 01/06/22 10:34:00 EDT, Height, 78.3, kg, 12/26/21 19:05:00 EDT, Dry Weight Start Date: 03/13/22 Status: Ordered Melatonin 3 mg oral tablet 1 tablet, By Mouth, Daily at bedtime, PRN NEEDED FOR INSOMNIA (PACKAGE IN TRAY)^1R4, # 60 tablet, 5 Refills, Maintenance, 06/12/22 18:11:00 EST, [facility], 60, TAKE 1 TABLET BY MOUTH [...] 08/07/22 12:14:00 EST, Route to Pharmacy Electronically, [facility]/pharmacy #[id number], Partial fill upon patient requestif the prescription is for a schedule II opioid remedios... Start Date: 08/07/22 Stop Date: 02/03/23 Status: Ordered Potassium Chloride (Eqv-K-Tab) 20 mEq oral tablet, extended release 2 tablet, By Mouth, Daily, # 180 tablet, 1 Refills, Maintenance, 05/13/22 9:48:00 EST, [facility], 175, cm, 04/09/22 15:34:00 EDT, Height, 78.3, kg, 12/26/21 19:05:00 EDT, Dry Weight Start Date: 05/13/22 Stop Date: 11/09/22 Status: Ordered pyridoxine 50 mg oral tablet 50 mg, 1, tablet, By Mouth, Daily, for 90 days, # 90 tablet, Refills 4, Tot. Refills 4, Acute 01/15/23 11:42:00 EDT, 10/22/21 11:42:00 EDT, Route to Pharmacy Electronically, [facility], Partial fill upon patient request if [...] 90 tablet, 9 Refills, 08/07/22 12:27:00 EST, [facility]/pharmacy #[id number], 28, 1tablet By Mouth Daily, 176, cm, 08/07/22 11:37:00 EST, Height, 79.8, kg, 07/31/22 22:40:00 EST, DryWeight Start Date: 08/07/22 Status: Ordered tranexamic acid 650 mg oral tablet 1 tablet = 650 mg, By Mouth, Daily, # 19 tablet, 0 Refills, Maintenance, 08/01/22 16:17:00 EST, Tablet, [facility]/pharmacy #[id number], Partial fill upon patient request if the prescription is for a schedule II opioid drug., 176, cm, 08/01/22 15:52:00 EST, Height... Start Date: 08/01/22 Stop Date: 08/20/22 Status: Ordered traZODone 50 mg oral tablet 2 TO 3 TABLETS, By Mouth, Daily at bedtime, #28 VIAL)^2R4., # 90 tablet, Refills 5, Maintenance, 06/12/22 18:11:00 EST, Route to Pharmacy Electronically, [facility], 179, cm, 06/08/22 7:37:00EST, Height, 84, kg, 06/01/22 12:27:00 EST, Dry Weight Start Date: 06/12/22 Status: Ordered Vitamin B1 100 mg oral tablet 1, tablet, By Mouth, Daily, # 90 tablet, Refills 3, Maintenance, 03/13/22 8:37:00 EDT, Route to Pharmacy Electronically, [facility], 175, cm, 01/06/22 10:34:00 EDT, Height, 78.3, kg, 12/26/2218:05:00 EDT, Dry Weight Start Date: 03/13/22 Status: Ordered Xifaxan 550 mg oral tablet 1 tablet, By Mouth, 2 times a day, ^1R1,1R4., # 60 tablet, 1 Refills, Maintenance, 06/12/22 18:10:00 EST, [facility], 179, cm, 06/08/22 7:37:00 EST, Height, [...] Team Personnel Name: Alexandra Colmenares RN Position: [facility] ED RN W/OE and Tasks Member Role: Primary Care Nurse Name: Garima Manzano RN Position: [facility] RN Member Role: Primary Care Nurse Name: Malgorzata Marinelli RN Position: [facility] RN Member Role: Primary Care Nurse Name: Joyce Roach RN Position: [facility] RN Member Role: Primary Care Nurse Name: Mary Suazo RN Position: [facility] RN Member Role: Primary Care Nurse Name: Andres Pressley RN Position: [facility] RN Member Role: Primary Care Nurse Name: Jany Baig DO Position: [facility] Primary Care Physician Member Role: PCP Address: Address: [address] [place] [address] [facility] [address] Name: Neida Ballard RN Position: [facility] RN Member Role: Primary Care Nurse Name: Kaye Payne RN Position: [facility] RN Member Role: Primary Care Nurse Name: Garima Hutchinson Position: [facility] RN Member Role: Primary Care Nurse Name: Malgorzata Austin Position: [facility] RN Member Role: Primary Care Nurse Name: Torrie Hernandez RN Position: [facility] OB RN Member Role: Primary Care Nurse Name: Gretchen Knutson RN Position: [facility] SN RN Member Role: Primary Care Nurse Name: Aislinn Mckee RN Position: [facility] RN Member Role: Primary Care Nurse Name: Ashley Mcelroy Position: [facility] RN Member Role: Primary Care Nurse Name: Cody Garcia Position: [facility] Associate Professional Member Role: Lifetime Consulting Provider Address: Address: [address] [place] [id number]- Name: Ge Covarrubias RN Position: S RN Member Role: Primary Care Nurse Name: Orin Elmore RN Position: [facility] ED RN W/OE and Tasks Member Role: Primary Care Nurse Name: Allegra Liu RN Position: [facility] PCO RN Member Role: Primary Care Nurse Name: Shayan Pandya MD Position: [facility] Renal MD Member Role: Lifetime Consulting Physician Address: Address: [address] [place] [address] [address] [facility] [place], [place] [address]- Name: Darlene Rodrigez RN Position: S RN Member Role: Primary Care Nurse Name: Kwan Mills RN Position: S RN Member Role: Primary Care Nurse Name: Dolores Can RN Position: S RN Member Role: Primary Care Nurse Name: Kim Rendon RN Position: S RN Member Role: Primary Care Nurse Name: Monica Rowell RN Position: [facility] RN Member Role: Primary Care Nurse Care Team Related Persons Name: MARLEN CABEZAS Address: home [address] [place] [id number] Name: MARLEN CABEZAS Address: home [address] [place] [address] Name: NICK CABEZAS Name: GEMA CABEZAS Address: home [address] [place] [id number]
--- OUTSIDE RECORDS SUMMARY | 2023-12-15 20:48 | XMS_ITS | Continuity of Care Document ---
Author Organization [facility] Address [address] [place] [address]- Care Team Providers Care Grain Manager Name Role Phone Jany Baig DO Primary Care Physician [place] [facility] [place]22 [place]11/22 [facility] [address] [place], [place] [address] Allergies, Adverse Reactions, Alerts Substance Reaction [...] 08/02/12 Give n 1Result Comment: [facility]: [id number] 2Result Comment: [04/29/2017] [id number] 3Admin Note: FLUARIX 4Admin Note: 3 RDINJ 5Admin Note: #2 Medications acamprosate 333 mg oral delayed release tablet 1 tablet = 333 mg, By Mouth, 3 times a day, # 42 tablet, 4 Refills, Maintenance, 11/05/22 11:31:00 EDT, [facility] upon patient request if the prescription is for a schedule II opioid drug., 175, cm, 11/05/22 10:21:00... Start Date: 11/05/22 Stop Date: 01/14/23 Status: Ordered amLODIPine 5 mg oral tablet 1 tablet, By Mouth, Daily, ^1R1., # 30 tablet, 2 Refills, Maintenance, 10/06/22 4:58:00 EDT, [facility], 176, cm, 09/07/22 8:56:00 EDT, Height, 82.1, kg, 09/07/22 8:59:00 EDT, Dry Weight Start Date: 10/06/22 Status: Ordered baclofen 10 mg oral tablet See Instructions, TAKE 1 TABLET BY MOUTH THREE TIMES DAILY, # 90 tablet, Refills 0, Tot. Refills 0,Maintenance, 12/01/22 16:12:00 EDT, Instructions Replace Required Details, [facility], [facility], cm, 11/13/22 10:4... Start Date: 12/01/22 Status: Ordered calcium (as carbonate)-vitamin D 500 mg-400 intl units oral tablet 1 tablet, By Mouth, Daily, ^1R1., # 28 tablet, 0 Refills, Maintenance, 12/01/22 16:12:00 EDT, [facility], 28, 1 tablet By Mouth Daily,Instr:^1R1., [...] capsule, 6 Refills, Maintenance, 12/03/22 12:13:00 EDT, [facility], 175, cm, 12/03/22 11:50:00 EDT, Height, [...] Gm, 11 Refills, Maintenance, 08/07/22 12:12:00 EST, [facility]/pharmacy #[id number], 30, USE 1 SPRAY(S) INTO EACH NOSTRIL TWICE A DAY, 176, cm,08/07/22 11:37:00 EST, Height, 79.8, kg, 07/31/22 2... Start Date: 08/07/22 Status: Ordered folic acid 1 mg oral tablet 1, tablet, By Mouth, Daily, R1., # 30 tablet, Refills 5, Tot. Refills 5, Maintenance, 10/06/22 4:59:00 EDT, Route to Pharmacy Electronically, [facility], 176, cm, 09/07/22 8:56:00 EDT, Height, [...] 09/03/22 14:50:00 EDT, Route to Pharmacy Electronically, [facility], 169, cm, 09/03/22 14:21:00 EDT, Height, 69, kg, 08/16/22 1:04:00 EST, Dry Weight Start Date: 09/03/22 Status: Ordered gabapentin 300 mg oral capsule 300 mg, 1, capsule, By Mouth, Daily at bedtime, note dose/frequency change, # 90 capsule, Refills 4, Tot. Refills 4, Maintenance, 11/05/22 11:05:00 EDT, Route to Pharmacy Electronically, [facility], 175, cm, 11/05/22 10:21:00 EDT, Height, 88.9... Start Date: 11/05/22 Stop Date: 01/29/24 Status: Ordered hydrOXYzine hydrochloride 10 mg oral tablet 2 tablet, By Mouth, 2 times a day, PRN NEEDED FOR ANXIETY (VIAL), # 30 tablet, 3 Refills, Maintenance, 09/24/22 17:01:00 EDT, [facility], 176, cm, 09/07/22 8:56:00 EDT, Height, 82.1, kg, 09/07/22 8:59:00 EDT, Dry Weight Start Date: 09/24/22 Status: Ordered lactulose 10 gm/15 ml oral syrup 15 mL, By Mouth, 2 times a day, # 120 mL, 6 Refills, Maintenance, 09/22/22 12:15:00 EDT, [facility], 4, TAKE 15ML BY MOUTH TWO TIMES A DAY, 176, cm, 09/07/22 8:56:00 EDT, Height, 82.1, kg, 09/07/22 8:59:00 EDT, Dry Weight Start Date: 09/22/22 Status: Ordered Lidoderm 5% film 1 patch, Topically, Daily, remove patches after 12 hours NSAIDS contraindicated High dose tylenol contraindicated remove patches after 12 hours Nueropathy, # 30 patch, 5 Refills, Maintenance, 11/05/22 11:04:00 EDT, [facility], Partial klaudia... Start Date: 11/05/22 Status: Ordered Melatonin 3 mg oral tablet 1 tablet, By Mouth, Daily at bedtime, PRN NEEDED FOR INSOMNIA (PACKAGE IN TRAY)^1R4, # 60 tablet, 5 Refills, Maintenance, 06/12/22 18:11:00 EST, [facility], 60, TAKE 1 TABLET BY MOUTH [...] 09/03/22 14:53:00 EDT, Route to Pharmacy Electronically, [facility], Partial fill upon patient request if [...] 11/05/22 11:31:00 EDT, Route to Pharmacy Electronically, [facility], Partial fill upon patient request if the prescription is for a schedule II opioid drug... Start Date: 11/05/22 Status: Ordered Tab-A-Jesse oral tablet 1 tablet, By Mouth, Daily, # 90 tablet, 1 Refills, 12/01/22 12:59:00 EDT, [facility], 28, 1tablet By Mouth Daily, 175, cm, 11/13/22 10:42:00 EDT, Height, 88.9, kg, 10/21/22 20:41:00 EDT, DryWeight Start Date: 12/01/22 Status: Ordered traZODone 50 mg oral tablet 2 tablets, By Mouth, Daily at bedtime, # 60 each, Refills 5, Tot. Refills 5, Maintenance, 09/03/22 17:13:00 EDT, Route to Pharmacy Electronically, [facility], 169, cm, 09/03/22 14:21:00 EDT, Height, [...] 03/13/22 8:37:00 EDT, Route to Pharmacy Electronically, [facility], 175, cm, 01/06/22 10:34:00 EDT, Height, 78.3, kg, 12/26/2218:05:00 EDT, Dry Weight Start Date: 03/13/22 Status: Ordered Vitamin B6 50 mg oral tablet 1, tablet, By Mouth, Daily, R1., # 90 tablet, Refills 4, Maintenance, 11/16/22 13:39:00 EDT, Route to Pharmacy Electronically, [facility], 175, cm, 11/13/22 10:42:00 EDT, Height, 88.9, kg, 10/21/22 20:41:00 EDT, Dry Weight Start Date: 11/16/22 Status: Ordered Voltaren 1% topical gel 1 application, Topically, 4 times a day, PRN for pain, # 100 Gm, 0 Refills, Maintenance, 12/01/22 16:12:00 EDT, Gel, [facility], Partial fill upon patient request if [...] tablet, 3 Refills, Maintenance, 10/01/22 15:19:00 EDT, [facility], 176, cm, 09/07/22 8:56:00 EDT, Height, [...] Team Personnel Name: Alexandra Colmenares RN Position: [facility] ED RN W/OE and Tasks Member Role: Primary Care Nurse Name: Garima Manzano RN Position: [facility] RN Member Role: Primary Care Nurse Name: Malgorzata Marinelli RN Position: [facility] RN Member Role: Primary Care Nurse Name: Joyce Roach RN Position: [facility] RN Member Role: Primary Care Nurse Name: Mary Suazo RN Position: [facility] RN Member Role: Primary Care Nurse Name: Andres Pressley RN Position: [facility] RN Member Role: Primary Care Nurse Name: Jany Baig DO Position: [facility] Physician - Primary Care Member Role: PCP Address: Address: [address] [place] [address] Adult [place] [address]- Name: Neida Ballard RN Position: [facility] RN Member Role: Primary Care Nurse Name: Kaye Payne RN Position: [facility] RN Member Role: Primary Care Nurse Name: Garima Hutchinson Position: [facility] RN Member Role: Primary Care Nurse Name: Malgorzata Austin Position: [facility] RN Member Role: Primary Care Nurse Name: Ibeth Adams RN Position: [facility] RN Member Role: Primary Care Nurse Name: Torrie Hernandez RN Position: [facility] OB RN Member Role: Primary Care Nurse Name: Gretchen Knutson RN Position: [facility] SN RN Member Role: Primary Care Nurse Name: Aislinn Mckee RN Position: [facility] RN Member Role: Primary Care Nurse Name: Ashley Mcelroy Position: [facility] RN Member Role: Primary Care Nurse Name: Cody Garcia Position: [facility] Associate Professional Member Role: Lifetime Consulting Provider Address: Address: [address] [place] [address]- Name: Ge Covarrubias RN Position: [facility] RN Member Role: Primary Care Nurse Name: Orin Elmore RN Position: [facility] ED RN W/OE and Tasks Member Role: Primary Care Nurse Name: Allegra Liu RN Position: [facility] AMB Nurse Member Role: Primary Care Nurse Name: Shayan Pandya MD Position: [facility] Renal MD Member Role: Lifetime Consulting Physician Address: Address: [address] [place] [address] [address] [facility] [place] [address]- Name: Darlene Rodrigez RN Position: [facility] RN Member Role: Primary Care Nurse Name: Kwan Mills RN Position: S RN Member Role: Primary Care Nurse Name: Dolores Can RN Position: [facility] RN Member Role: Primary Care Nurse Name: Kim Rendon RN Position: [facility] RN Member Role: Primary Care Nurse Name: Monica Rowell RN Position: [facility] RN Member Role: Primary Care Nurse Name: Jimi Fitzpatrick RN Position: [facility] RN Member Role: Primary Care Nurse Care Team Related Persons Name: MARLEN CABEZAS Address: [place] [address] Name: MARLEN CABEZAS Address: [place] [address] Name: NICK CABEZAS Name: GEMA CABEZAS Address: [place] [address]
--- OUTSIDE RECORDS SUMMARY | 2023-12-15 20:48 | XMS_ITS | Continuity of Care Document ---
Author Organization [facility] ter Address [address] [place] [id number]- Care Team Providers Care Customer Support Associate Name Role Phone Jany Baig DO Primary Care Physician Encounter [facility] Date(s): 07/15/23 - 07/17/23 [facility] [address] [place] [id number]- Encounter Diagnosis Hepatic encephalopathy(Final) - 07/15/23 Discharge Disposition: A-D/C Home Attending Physician: Juvenal Matthews MD Admitting Physician: Donna LEE, Jessica Referring Physician: Not on Staff, Referring MD [...] acel (oldterm) 08/02/12 Give n 1Result Comment: [facility]: [id number] 2Result Comment: [04/29/2017] [id number] 3Admin Note: FLUARIX 4Admin Note: 3 RDINJ [...] tablet, 2 Refills, Maintenance, 06/02/23 8:00:00 EST, [facility], 175, cm, 03/22/23 6:50:00 EDT, Height, 77.5, kg, 03/20/23 11:30:00 EDT, Dry Weight Start Date: 06/02/23 Status: Ordered baclofen 10 mg oral tablet 10 mg, 1, tablet, By Mouth, 3 times a day, Maintenance, 07/15/23 13:19:00 EST, Partial fill upon patient request if the prescription is for a schedule II opioid drug. Start Date: 07/15/23 Status: Ordered calcium (as carbonate)-vitamin D 500 mg-400 intl units oral tablet 1 tablet, By Mouth, Daily, Maintenance, 07/15/23 13:19:00 EST, Partial fill upon patient request ifthe prescription is for a schedule II opioid drug. Start Date: 07/15/23 Status: Ordered Compression Stockings See Instructions, # [...] opioid drug. Start Date: 07/15/23 Status: Ordered lactulose 10 gm/15 ml oral syrup 30 mL = 20 Gm, By Mouth, 3 times a day, 0 Refills, Maintenance, 07/14/23 10:54:00 EST, Syrup, Partial fill upon patient request if the prescription is for a schedule II opioid drug. Start Date: 07/14/23 Status: Ordered Lasix 20 mg oral tablet [...] opioid drug. Start Date: 07/15/23 Status: Ordered melatonin 3 mg oral tablet 1 tablet = 3 mg, By Mouth, Daily at bedtime, PRN as needed for insomnia, Maintenance, 07/15/23 13:23:00 EST, Partial fill upon patient request if the prescription is for a schedule II opioid drug. Start Date: 07/15/23 Status: Ordered Neurontin 300 mg oral capsule [...] Dry Weight Start Date: 06/28/23 Status: Ordered Paxil 20 mg oral tablet [...] 04/14/23 12:41:00 EDT, Route to Pharmacy Electronically, [email or web address], 175, cm, 03/22/23 6:50:00 EDT, Height, 77.5, kg, 03/20/23 11:30:00 EDT, Dry Weight Start Date: 04/14/23 Status: Ordered Tab-A-Jesse oral tablet 1 tablet, By Mouth, Daily, R1., # 30 tablet, 5 Refills, Maintenance, 05/06/23 19:16:00 EST, [email or web address], 30, TAKE 1 TABLET BY MOUTH ONCE A DAY^1R1, 175, cm, 03/22/23 6:50:00 EDT, Height, 77.5,kg, 03/20/23 11:30:00 EDT, Dry Weight Start Date: 05/06/23 Status: Ordered traZODone 50 mg oral tablet 2, tablet, By Mouth, Daily at bedtime, ^2R4., # 60 tablet, Refills 5, Maintenance, 02/26/23 10:11:00 EDT, Route to Pharmacy Electronically, [email or web address], 175, cm, 12/03/22 11:50:00 EDT, Height,84, [...] 02/09/23 23:18:00 EDT, Route to Pharmacy Electronically, [email or web address], 175, cm, 12/03/22 11:50:00 EDT, Height, 88.9, kg, 10/21/22 20:41:00 EDT, Dry Weight Start Date: 02/09/23 Status: Ordered Vitamin B6 50 mg oral tablet 1, tablet, By Mouth, Daily, R1., # 90 tablet, Refills 4, Maintenance, 11/16/22 13:39:00 EDT, Route to Pharmacy Electronically, [email or web address], 175, cm, 11/13/22 10:42:00 EDT, Height, 88.9, kg, 10/21/22 20:41:00 EDT, Dry Weight Start Date: 11/16/22 Status: Ordered Voltaren Arthritis Pain 1% topical [...] opioid drug. Start Date: 07/15/23 Status: Ordered Problem List Condition Confirmation Course [...] Exam Date Time Procedure Performing Provider Status 07/15/23 11:53 AM Knee 1 or 2 Views Right Herbert , Luis ; Auth (Verified) Notes: (Knee 1 or 2 Views Right) Reason For Exam: Pain RESULT: Knee 1 or 2 Views Right Knee 1 or 2 Views Right, 2 views Reason: Pain; Clinical Question(s): Fracture COMPARISON: None. FINDINGS: No bone lesions or fractures. No arthritic changes. No osteochondral defects or intra-articular loose bodies. No evidence of joint effusion. Mild diffuse osteoporosis. IMPRESSION: Mild to moderate diffuse osteoporosis without acute fracture or dislocation seen. WSN: [id number] Ordering Physician: Jessica Thompson Dictated By: Royer Patterson MD, V Dictated Date/Time: 07/15/23 11:56 a Reviewed By: Royer Patterson MD, V Signed By: Royer Patterson MD, V Signed Date/Time: 07/15/23 11:56 am Transcribed By: MIRNA Transcribed Date/Time: 07/15/23 11:56 am * Exam Date Time Procedure Performing Provider Status 07/15/23 11:53 AM Knee 1 or 2 Views Left Herbert , Luis; Auth (Verified) Notes: (Knee 1 or 2 Views Left) Reason For Exam: Pain RESULT: Knee 1 or 2 Views Left Knee 1 or 2 Views Left, 2 views Reason: Pain; Clinical Question(s): Fracture COMPARISON: None. FINDINGS: No bone lesions or fractures. No arthritic changes. No osteochondral defects or intra-articular loose bodies. Possible very small suprapatellar bursa effusion. IMPRESSION: Possible very small suprapatellar bursa effusion. WSN: [id number] Ordering Physician: Jessica Thompson Dictated By: Royer Patterson MD, V Dictated Date/Time: 07/15/23 11:55 a Reviewed By: Royer Patterson MD, V Signed By: Royer Patterson MD, V Signed Date/Time: 07/15/23 11:55 am Transcribed By: MIRNA Transcribed Date/Time: 07/15/23 11:54 am * Exam Date Time Procedure Performing Provider Status 07/15/23 5:[address] Cervical Spine W/O Contrast Leslie Conde; Tanna (Verified) Notes: (CT Cervical Spine W/O Contrast) Reason For Exam: Neck trauma, dangerous injury mechanism;Other: RESULT: CT Cervical Spine W/O Contrast CT Head/Brain W/O Contrast, CT Cervical Spine W/O Contrast INDICATION: Hx of Present Illness: Pt reporting he tripped and fell, unknown LOC, denies ETOH use, stated last drink over 4 months ago; Reason: Trauma; Clinical Question(s): Hematoma TECHNIQUE: Noncontrast head CT using axial technique was reconstructed in axial and coronal planes.Noncontrast spiral CT through the cervical spine was formatted in 3 planes. Automatic tube modulation was used for the cervical spine and iterative dose reconstruction was used for both the head and cervical spine to optimize scan parameters and image quality. CTDIvol Body: 13.40 mGy, DLP Body: 336 mGy*cm. CTDIvol Head: 41.80 mGy, DLP Head: 672 mGy*cm. COMPARISON: CT of head on 07/12/2023 FINDINGS: Industrial Aerial Installer View Findings, Lines and Tubes: None. BRAIN AND EXTRA-AXIAL SPACES: No parenchymal hemorrhage, midline shift, or mass effect. Clancy-white matter differentiation is wellpreserved. No acute infarct. Negative insular ribbon sign. Atherosclerotic vascular calcification of the carotid arteries but negative hyperdense vessel sign. Mild prominence of the ventricles and sulci consistent with parenchymal volume loss. Mild low-density white matter changes. No subarachnoid hemorrhage. No subdural or epidural collection. CALVARIUM, SKULL BASE, AND SOFT TISSUES: No fractures or suspicious bony lesions. Mild dependent fluid in the left maxillary sinus and right sphenoid sinus.. Visualized orbits and globes are intact. The extracranial soft tissues are unremarkable. CERVICAL SPINE: No fracture. No acute osseous abnormalities. Prominent anterior ankylosing osteophyte of C6-C7. Straightening of the cervical spine. No locked or perched facet. Intervertebral disc spaces and vertebral body heights are preserved. OTHER BONES: No acute abnormality. CERVICAL SOFT TISSUES AND LUNG APICES: Normal soft tissues. Visualized lung apices are clear. Normal thyroid. IMPRESSION: No acute abnormality of the head or cervical spine. Chronic findings as described I have personally reviewed the images and I agree with this report. WSN: [id number] Ordering Physician: Kaylan Parker Dictated By: Los Hinson MD Dictated Date/Time: 07/15/23 7:17 am Reviewed By: Ken Candelaria MD Signed By: Ken Candelaria MD Signed Date/Time: 07/15/23 7:22 am Transcribed By: MIRNA Transcribed Date/Time: 07/15/23 5:27 am * Exam Date Time Procedure Performing Provider Status 07/15/23 5:[address] Head/Brain W/O Contrast Perri Conde; Auth (Verified) Notes: (CT Head/Brain W/O Contrast) Reason For Exam: Trauma RESULT: CT Head/Brain W/O Contrast CT Head/Brain W/O Contrast, CT Cervical Spine W/O Contrast INDICATION: Hx of Present Illness: Pt reporting he tripped and fell, unknown LOC, denies ETOH use, stated last drink over 4 months ago; Reason: Trauma; Clinical Question(s): Hematoma TECHNIQUE: Noncontrast head CT using axial technique was reconstructed in axial and coronal planes.Noncontrast spiral CT through the cervical spine was formatted in 3 planes. Automatic tube modulation was used for the cervical spine and iterative dose reconstruction was used for both the head and cervical spine to optimize scan parameters and image quality. CTDIvol Body: 13.40 mGy, DLP Body: 336 mGy*cm. CTDIvol Head: 41.80 mGy, DLP Head: 672 mGy*cm. COMPARISON: CT of head on 07/12/2023 FINDINGS: Industrial Aerial Installer View Findings, Lines and Tubes: None. BRAIN AND EXTRA-AXIAL SPACES: No parenchymal hemorrhage, midline shift, or mass effect. Clancy-white matter differentiation is wellpreserved. No acute infarct. Negative insular ribbon sign. Atherosclerotic vascular calcification of the carotid arteries but negative hyperdense vessel sign. Mild prominence of the ventricles and sulci consistent with parenchymal volume loss. Mild low-density white matter changes. No subarachnoid hemorrhage. No subdural or epidural collection. CALVARIUM, SKULL BASE, AND SOFT TISSUES: No fractures or suspicious bony lesions. Mild dependent fluid in the left maxillary sinus and right sphenoid sinus.. Visualized orbits and globes are intact. The extracranial soft tissues are unremarkable. CERVICAL SPINE: No fracture. No acute osseous abnormalities. Prominent anterior ankylosing osteophyte of C6-C7. Straightening of the cervical spine. No locked or perched facet. Intervertebral disc spaces and vertebral body heights are preserved. OTHER BONES: No acute abnormality. CERVICAL SOFT TISSUES AND LUNG APICES: Normal soft tissues. Visualized lung apices are clear. Normal thyroid. IMPRESSION: No acute abnormality of the head or cervical spine. Chronic findings as described I have personally reviewed the images and I agree with this report. WSN: [id number] Ordering Physician: Kaylan Parker Dictated By: Los Hinson MD Dictated Date/Time: 07/15/23 7:17 am Reviewed By: Ken Candelaria MD Signed By: Ken Candelaria MD Signed Date/Time: 07/15/23 7:22 am Transcribed By: MIRNA Transcribed Date/Time: 07/15/23 5:27 am Vital Signs Most recent to oldest [Reference Range]: 1 2 3 Weight 73.8 kg (07/15/23 3:51 PM) Oxygen Saturation [94-100 %] 100 % (07/17/23 12:11 PM) 100 % (07/17/23 8:20 AM) 99 % (07/17/23 3:18 AM) Pulse Rate [55-90 bpm] 109 bpm *H* (07/17/23 12:11 PM) 99 bpm *H* (07/17/23 8:20 AM) 95 bpm *H* (07/17/23 3:18 AM) Blood Pressure [90-138/55-84 mm Hg] 147/89mm Hg *H* (07/17/23 12:11 PM) 127/80mm Hg (07/17/23 8:20 AM) 128/72mm Hg (07/17/23 3:18 AM) Respiratory Rate [16-30 br/min] 16 br/min (07/17/23 12:11 PM) 17 br/min (07/17/23 8:20 AM) 18 br/min (07/17/23 7:00 AM) Temperature [96.8-100.4 DegF] 97.9 DegF (07/17/23 12:11 PM) 98.2 DegF (07/17/23 8:20 AM) 98 DegF (07/17/23 3:18 AM) Liters per Minute 0 L/min (07/15/23 4:22 AM) Mode of Delivery (Oxygen) Room air (07/17/23 12:11 PM) Room air (07/17/23 8:20 AM) Room air (07/17/23 3:18 AM) Blood pressure sites Arm, right (07/17/23 12:11 PM) Arm, right (07/17/23 8:20 AM) Arm, left (07/17/23 3:18 AM) Temperature Route Oral (07/17/23 12:11 PM) Oral (07/17/23 8:20 AM) Oral (07/17/23 3:18 AM) Social History Social History Type Response Smoking Status 10 or more cigarette s (1/2 pack or more)/day in last 30 days entered on: 02/04/19 Sex Admission evaluation note * Donna LEE, Jessica: PERFORM, MODIFY Event Display: Admission Note Authored Date: Patient: ??GEMA CABEZAS ? Age:??48 Years?Sex:??Male?:??1975?? Chief Complaint/Reason for Consultation Pt from . [facility], reported unwitnessed fall unknown LOC, no anticoagulation, ??pt ETOH, bruising and abrasion under L eye, sage lower leg abrasions per EMS History of Present Illness 48-year-old male with past medical history of alcoholic cirrhosis, esophageal varices status post TIPS, sleep apnea, neuropathy, insomnia, legal blindness, history of polysubstance abuse, anemia, wasadmitted from 07/12-07/14 for AMS, hepatic encephalopathy returns with a unwitnessed fall. pt is AAOX1, confused and thinks he is in rehab but corrects again, thinks its jun 2011. he mentions that hewas at rehab and was trying to get out of bed to use the rest room and felt weak sustained a fall with head trauma. he denied any presyncopal symptoms. no chest pain, light headedness, palpitations ,Nausea, vomiting, abdominal pain and he thinks he might have tripped and also reports he was unableto get up from the floor. he currently has pain in his B/l knees. he denies any other symptoms. he has bruising to his left eye and abrasions to B/l knees and shins from the fall. In the ED pt was noted to have lot of difficulty coordinating transfer from EMS stretcher to the EDstretcher. afebrile, hemodynamically stable, saturating well on room air. CT head and C spine non acute.elevated ammonia levels 168 and encephalopathic. ?EKG shows a sinus rhythm at a rate of 81, OK 186, QTc prolonged at 508. ??No ST elevation or ischemic changes.HST 6-6 flat.?? lab work noted for baseline pancytopenia , elevated INR 1.5,normal electrolytes, renal functions.elevated alk phos BL 156, AST 48.alcohol level negative. admitted for hepatic encephalopathy, AMS. ?? Review of Systems Constitutional:??No fever, chills, weakness or fatigue.. Cardiovascular:??No chest pain, chest pressure or chest discomfort. No palpitations or pedal edema. Respiratory:??No shortness of breath, cough or sputum production. Gastrointestinal:??No?? nausea, vomiting or diarrhea. No abdominal pain or blood in stool. Objective Vital Signs?? Temperature: 98.5 DegF (07/15/23 04:22:00) Temperature Route: Oral (07/15/23 04:22:00) Pulse Rate: 80 bpm (07/15/23 06:06:00) Respiratory Rate: 16 br/min (07/15/23 06:06:00) Systolic Blood Pressure: 109 mm Hg (07/15/23 06:06:00) Diastolic Blood Pressure: 63 mm Hg (07/15/23 06:06:00) Blood pressure sites: Arm, left (07/15/23 06:06:00) Mean Arterial Pressure: 101 mm Hg (07/15/23 04:22:00) Pulse Pressure: 46 mm Hg (07/15/23 06:06:00) Oxygen Saturation: 99 % (07/15/23 06:06:00) Liters per Minute: 0 L/min (07/15/23 04:22:00) Mode of Delivery (Oxygen): Room air (07/15/23 06:06:00) Early Warning Score: 6 (07/15/23 07:59:14) ? Intake/Output? No Data Available ? Physical Exam ?General :??No apparent distress ?HEENT: right periorbital bruising ?Respiratory??: Bilateral air entry fair. No wheeze or crackles. ?Cardiac??: Regular rate and rhythm, S1S2+ ?Abdomen/GI??: soft, non-tender, non-distended, bowel sounds present. ?Extremities??:??B/L small knee abrasions and B/L tate linear ??abrasions ?Neurologic??: Alert & oriented x 1, confused, Non focal ? Assessment/Plan Diagnoses 1. ??Fall ??(W19.XXXA) 2. ??Hepatic encephalopathy ??(K76.82) 3. ??Pancytopenia ??(D61.818) 4. ??Alcoholic hepatitis, cirrhosis ??(K70.10) ?? 48-year-old male with past medical history of alcoholic cirrhosis, esophageal varices status post TIPS, sleep apnea, neuropathy, insomnia, legal blindness, history of polysubstance abuse, anemia, wasadmitted from 07/12-07/14 for AMS, hepatic encephalopathy returns with a unwitnessed fall, CTH negative admitted for hepatic encephalopathy. ?? Fall Hepatic encephalopathy- p/w unwitnessed fall,likely mechanical with legal blindness in both eyes, deconditioning, encephalopathy with confusion and ammonia 168. pt denies any LOC, presyncopal symptoms, ACS ruled out, neuro non focal. ??CT H and C spine non acute -check orthostatics - check B/L knee XR given pain - PT eval -Lactulose 30 gms 3 times daily to titrate to 2-3 BMs -continue rifaximin, Lasix, spironolactone - hold hydroxyzine, gabapentin given confusion Monitor??electrolytes, LFTs??daily. No signs of SBP ? Alcoholic hepatitis, cirrhosis h/o Esophageal Varices- ?? alkaline phosphatase elevated at 156 and mild AST 48?? with normal bilirubin alcohol level 0 Continue acamprosate, thiamine, folic acid, pyridoxine, multivitamin, magnesium continue pantoprazole ?? Pancytopenia-??Pancytopenia with WBC 3.1,??H&H 10.8 /32.4, platelets 78 close to baseline Likely secondary to cirrhosis no evidence of major bleeding concerns Continue to monitor??cbc ? Anxiety depression-??Continue home paroxetine,??trazadone hold hydroxyzine??given mentation issues ? VTE Prophylaxis: pneumatic compression bootsm if pt tolerates with minimal pain?Code Status:??Full CODE?? Discharge Planning: PT eval ordered? Histories Allergies Allergies ?(Active and Proposed Allergies [...] effects ? Past Medical History/Problem List Active Problems??(23) AC joint derangement Alcohol abuse Alcoholic hepatitis, [...] anemia ANA LUISA (obstructive sleep apnea) Overweight Pancytopenia Patellar contusion, seen by IBRAHIMA spring 2015 Vitamin D insufficiency ? Past Surgical History TIPS - Transjugular intrahepatic portosystemic shunt: 03/18/15 EGD: 03/14/15 EGD: 11/03/14 Laryngoscopy in 1988 ? Social History Alcohol Details:??Use: Past. ??Frequency: Several times per day. ??Other: 18 beers per day. ??Previous treatment: Inpatient. 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 Exercise Details:??Exercise type: Walking. Home/Environment Details:??Living situation: [...] Alcoholism Pat. Grandfather: Diabetes mellitus type II; Throat cancer ? 27-MAR-2016 23 :30:24<$> Pat. Grandmother: Hypertension Other: Optic neuropathy Mat. [...] ankle-stirrup support brace)?See Instructions?Dx: R inversion ankle [id number] Durable Medical Equipment (Walker)?See Instructions?2 wheeled Walker.Dx: [...] ? Inpatient Medications Medications (24) Active SCHEDULED: (15) Acamprosate 333mg EC Tablet [...] ??20 mg, By Mouth, Every other day Lactulose 20 Gm/30mL Syrup (lactulose 10 gm/15 ml oral syrup) ??20 Gm 30 mL, By Mouth, 3 times a day Magnesium Oxide 400 mg Tablet (magnesium oxide 400 mg oral tablet) ??400 mg, By Mouth, 2 times a day Multivitamin Tablet ??1 tablet, By Mouth, Daily NaCl 0.9% Flush 3ml (NaCL 0.9% Flush) ??3 mL, IV Push, Every 8 hours Pantoprazole 40 mg EC Tablet (pantoprazole 40 mg oral delayed release tablet) ??40 mg, By Mouth, Daily Paroxetine 20 mg Tablet (PARoxetine 10 mg oral tablet) ??20 mg, By Mouth, Daily Pyridoxine 50 mg Tablet (Vitamin B6 50 mg oral tablet) ??50 mg, By Mouth, Daily Rifaximin (Xifaxan 550 mg oral tablet) ??550 mg, By Mouth, 2 times a day Spironolactone 25 mg Tablet (spironolactone 25 mg oral tablet) ??25 mg, By Mouth, Daily Thiamine 100 mg Tablet (Vitamin B1 100 mg oral tablet) ??100 mg, By Mouth, Daily Trazodone 50 mg Tablet (traZODone 50 mg oral tablet) ??100 mg, By Mouth, Daily at bedtime CONTINUOUS: (0) PRN: (9) Acetaminophen 325 mg Tablet (Acetaminophen Tablet) ??650 mg, By Mouth, Every 4 hours Dextromethorphan-Guaifenesin 20 mg-200 mg/10 mL Liqu UD (Robitussin DM Liquid) ??10 mL, By Mouth, Every 4 hours Docusate Sodium 100 mg Capsule (Docusate Sodium Capsule) ??100 mg 1 capsule, By Mouth, 2 times a day Fluticasone Propionate 50mcg/inh Nasal [place] (fluticasone 50 mcg/inh nasal spray) ??50 mcg 1 sprays, Nares, Both, 2 times a day Melatonin 3 mg [...] Recent Labs BLOOD COUNT & DIFF WBC 3.1 k/mm3 (Low)?? 07/15/2023 04:52 RBC 3.55 m/mm3 (Low)?? 07/15/2023 04:52 Hgb 10.8 Gm/dL (Low)?? 07/15/2023 04:52 Hct 32.4 % (Low)?? 07/15/2023 04:52 MCV 91.3 femtoliters ()?? 07/15/2023 04:52 MCH 30.4 pg ()?? 07/15/2023 04:52 MCHC 33.3 g/dL ()?? 07/15/2023 04:52 Platelet Count 78 k/mm3 (Low)?? 07/15/2023 04:52 RDW-SD 47.0 femtoliters (High)?? 07/15/2023 04:52 MPV 10.1 femtoliters ()?? 07/15/2023 04:52 Nucleated RBC (Automated) 0.0 #/100 WBC'S ()?? 07/15/2023 04:52 Abs. NRBC 0.0 k/mm3 ()?? 07/15/2023 04:52 Abs. Neut 1.6 k/mm3 ()?? 07/15/2023 04:52 Abs. Lymph 0.9 k/mm3 ()?? 07/15/2023 04:52 Abs. [place] 0.4 k/mm3 ()?? 07/15/2023 04:52 Abs. Eo 0.1 k/mm3 ()?? 07/15/2023 04:52 Abs. Baso 0.0 k/mm3 ()?? 07/15/2023 04:52 Neut % 53.1 % ()?? 07/15/2023 04:52 Lymph % 29.2 % ()?? 07/15/2023 04:52 [place] % 12.8 % (High)?? 07/15/2023 04:52 Eos % 3.9 % ()?? 07/15/2023 04:52 Baso % 0.7 % ()?? 07/15/2023 04:52 Imm Gran 0.3 % ()?? 07/15/2023 04:52 Abs. Imm Gran 0.0 k/mm3 ()?? 07/15/2023 04:52 ?? CARDIAC High Sensitivity Troponin (HSTnT) <6 ng/L ()?? 07/15/2023 06:52 ?? CHEM GENERAL Sodium 140 mmol/L ()?? 07/15/2023 04:53 Potassium 4.0 mmol/L ()?? 07/15/2023 04:53 Chloride 109 mmol/L (High)?? 07/15/2023 04:53 Bicarbonate Level 22 mmol/L ()?? 07/15/2023 04:53 Anion Gap 9 ()?? 07/15/2023 04:53 Glucose Level 185 mg/dL (High)?? 07/15/2023 04:53 Glucose, POC 213 mg/dL (High)?? 07/15/2023 04:29 BUN 12 mg/dL ()?? 07/15/2023 04:53 Creatinine-Blood 0.8 mg/dL ()?? 07/15/2023 04:53 Estimated GFR Creatinine 109 ML/MIN/1.73 M2 ()?? 07/15/2023 04:53 Calcium 8.7 mg/dL ()?? 07/15/2023 04:53 Protein, Total 6.5 Gm/dL ()?? 07/15/2023 04:53 Albumin 3.0 Gm/dL (Low)?? 07/15/2023 04:53 AG Ratio 0.9 ()?? 07/15/2023 04:53 Alkaline Phosphatase 156 units/L (High)?? 07/15/2023 04:53 AST (SGOT) 48 units/L (High)?? 07/15/2023 04:53 ALT (SGPT) 31 units/L ()?? 07/15/2023 04:53 Bilirubin, Total 0.9 mg/dL ()?? 07/15/2023 04:53 ?? HEME OTHER Hold Blue Top SPECIMEN DISCARDED AFTER 4 HOURS. ()?? 07/15/2023 04:52 ?? MISC. CHEMISTRY Ammonia, Venous 168 ??mole/L (High)?? 07/15/2023 04:53 ?? TOXICOLOGY/TDM Ethanol, Serum or Plasma NONE DETECTED mg/dL ()?? 07/15/2023 04:53 ?? URINE OTHER Est Creatinine Clearance 95.78 mL/min ()?? 07/14/2023 02:33 ? Abnormal Labs ?? BLOOD COUNT & DIFF ??Abs. Imm Gran ??0.0 k/mm3 () ??07/15/2023 04:52 ??Abs. NRBC ??0.0 k/mm3 () ??07/15/2023 04:52 ??Hct ??32.4 % (Low) ??07/15/2023 04:52 ??Hgb ??10.8 Gm/dL (Low) ??07/15/2023 04:52 ??Imm Gran ??0.3 % () ??07/15/2023 04:52 ??[place] % ??12.8 % (High) ??07/15/2023 04:52 ??Nucleated RBC (Automated) ??0.0 #/100 WBC'S () ??07/15/2023 04:52 ??Platelet Count ??78 k/mm3 (Low) ??07/15/2023 04:52 ??RBC ??3.55 m/mm3 (Low) ??07/15/2023 04:52 ??RDW-SD ??47.0 femtoliters (High) ??07/15/2023 04:52 ??WBC ??3.1 k/mm3 (Low) ??07/15/2023 04:52 ? CARDIAC ??High Sensitivity Troponin (HSTnT) ??<6 ng/L () ??07/15/2023 06:52 ? CHEM GENERAL ??AG Ratio ??0.9 () ??07/15/2023 04:53 ??AST (SGOT) ??48 units/L (High) ??07/15/2023 04:53 ??Albumin ??3.0 Gm/dL (Low) ??07/15/2023 04:53 ??Alkaline Phosphatase ??156 units/L (High) ??07/15/2023 04:53 ??Chloride ??109 mmol/L (High) ??07/15/2023 04:53 ??Estimated GFR Creatinine ??109 ML/MIN/1.73 M2 () ??07/15/2023 04:53 ??Glucose Level ??185 mg/dL (High) ??07/15/2023 04:53 ??Glucose, POC ??213 mg/dL (High) ??07/15/2023 04:29 ? HEME OTHER ??Hold Blue Top ??SPECIMEN DISCARDED AFTER 4 HOURS. () ??07/15/2023 04:52 ? MISC. CHEMISTRY ??Ammonia, Venous ??168 ??mole/L (High) ??07/15/2023 04:53 ? TOXICOLOGY/TDM ??Ethanol, Serum or Plasma ??NONE DETECTED mg/dL () ??07/15/2023 04:53 ? Note: Critical results are displayed in red. ? Blood Glucose Trend Glucose Level:??185 mg/dL??High (07/15/23 04:53:00) Glucose, POC:??213 mg/dL??High (07/15/23 04:29:00) ? CBC, CBC w/Diff?? CBC?? Differential?? WBC:??3.1 k/mm3??Low (04:52) Abs. Neut: 1.6 k/mm3 (04:52) RBC:??3.55 m/mm3??Low (04:52) Abs. Lymph: 0.9 k/mm3 (04:52) Hct:??32.4 %??Low (04:52) Abs. [place]: 0.4 k/mm3 (04:52) RDW-SD:??47 femtoliters??High (04:52) Abs. Eo: 0.1 k/mm3 (04:52) Nucleated RBC (Automated): 0 #/100 WBC'S (04:52) Abs. Baso: 0 k/mm3 (04:52) Abs. NRBC: 0 k/mm3 (04:52) Neut %: 53.1 % (04:52) ?? Lymph %: 29.2 % (04:52) ?? [place] %:??12.8 %??High (04:52) ?? Eos %: 3.9 % (04:52) ?? Baso %: 0.7 % (04:52) ?? Imm Gran: 0.3 % (04:52) ?? Abs. Imm Gran: 0 k/mm3 (04:52) ? BMP, Mg, and Phos Anion Gap: 9 (04:53) Bicarbonate Level: 22 mmol/L (04:53) BUN: 12 mg/dL (04:53) Calcium: 8.7 mg/dL (04:53) Chloride:??109 mmol/L??High (04:53) Creatinine-Blood: 0.8 mg/dL (04:53) Estimated GFR Creatinine: 109 ML/MIN/1.73 M2 (04:53) Glucose Level:??185 mg/dL??High (04:53) Potassium: 4 mmol/L (04:53) Sodium: 140 mmol/L (04:53) ?? Coagulation Profile?? No qualifying data available. ?? LFT Albumin:??3 Gm/dL??Low (04:53) Alkaline Phosphatase:??156 units/L??High (04:53) ALT (SGPT): 31 units/L (04:53) AST (SGOT):??48 units/L??High (04:53) Bilirubin, Total: 0.9 mg/dL (04:53) ?? Urinalysis?? No qualifying data available. ? Cardiology Labs High Sensitivity Troponin (HSTnT): <6 (07/15/23 06:52:00) High Sensitivity Troponin (HSTnT): 6 ng/L (07/15/23 04:53:00) ?? Blood Gases?? No qualifying data available. ?? Uric/LDH?? No qualifying data available. ?? EKG study * Event Display: ECG 12-Lead Authored Date: Please click on pdf link to open report * Event Display: ECG 12-Lead Authored Date: Ventricular Rate: 81 BPM Atrial Rate: 81 BPM P-R Interval: 186 ms QRS Duration: 84 ms Q-T Interval: 438 ms QTC Calculation(Bazett): 508 ms P [place]ullman: 38 degrees R [place]: 29 degrees T [place]: 38 degrees Normal sinus rhythm Prolonged QT Abnormal ECG When compared with ECG of 19-MAR-2023 22:01, No significant change was found Confirmed by ZOIE CUENCA ([id number]) on 07/15/2023 1:43:12 PM [place]: ZOIE CUENCA [facility] Progress note * Dixie Duke RN: PERFORM, SIGN, VERIFY Event Display: Progress Note Hospital Authored Date: Patient: GEMA CABEZAS Age: 48 years Sex: Male : 1975 Associated Diagnoses: None Author: Dixie Duke RN Findings Narrative/Incidental Patient discharged to nursing facility with ambulance drivers. Report given. Patient left with all belongings. IV removed before d/c. . Discharge Information Case Management Discharge Plan : Case Management Discharge Plan Data 07/17/2023 17:58 EST Discharge Level of Care at Discharge assisted facility Discharge Nursing Homes/Rehab Facilities Care [facility] 07/17/2023 11:35 EST Discharge Level of Care at Discharge assisted facility Discharge Nursing Homes/Rehab Facilities Care [facility] Agency Surgery Tech #1 intake Service Categories #1 Occupational Therapy, Physical Therapy, Mcfp, Reflesher 07/16/2023 10:52 EST Discharge Level of Care at Discharge assisted facility (Modified) Discharge Nursing Homes/Rehab Facilities Care [facility] Discharge VNA/Hospice/Home Care In Error (In Error) Name of Agency #1 In Error (In Error) Service Categories #1 Physical Therapy, Mcfp Service Comments #1 you are being discharged to rehab at [facility]. (Modified) 07/14/2023 14:15 EST Discharge Level of Care at Discharge Homehealth/VNA Discharge VNA/Hospice/Home Care [facility] [phone] 07/14/2023 11:15 EST Discharge Level of Care at Discharge Homehealth/VNA Discharge VNA/Hospice/Home Care [facility] [phone] Discharge Transportation Arranged [facility] [phone] Discharge Arranged Transport Date/Time 07/14/2023 13:30 Mode of Transportation Arranged Chair Van Name of Agency #1 [facility] Agency Surgery Tech #1 Admission Service Categories #1 Physical Therapy, [facility] Service Start Date and Time #1 07/14/2023 13:30 Service Comments #1 You are being discharged with Home Health Care. If you do not hear from them within 48hrs please call them directly. Name of Person Notified of Transfer Marilee - HCP and Patient Rehabilitation Discharge : Rehab Discharge Index 07/16/2023 8:42 EST Comments on treatment indicated 48 y/o legally blind male returns with a unwitnessed fall, CTH negative admitted for hepatic encephalopathy. See for transfers, gait, therex and balance. Rec rehab. Walker: distance 20-50 Distance pt will ambulate ~100' with RW and good balance Full chart review completed Yes Plan of care PT Gait training, Transfer training, Therapeutic exercise, Functional Activities, Balance training 07/13/2023 10:47 EST Comments on treatment indicated [...] Gait training, Therapeutic exercise, Balance training * Dixie Duke RN: PERFORM, SIGN, VERIFY Event Display: Progress Note Hospital Authored Date: [id number] Patient: GEMA CABEZAS Age: 48 years Sex: Male : 1975 Associated Diagnoses: None Author: Dixie Duke RN Findings Narrative/Incidental Patient impulsive and forgetful. On bed alarm for safety and he continually gets up and sets off alarm. Unsteady gait. Using walker and needs one assist for safety. Face bruised and red with reddenedleft eye. Dressings are intact BLE and right hip. Changed on evening shift yesterday per nurse in report. Dressing are QOD. No draianage observed. Using bedside commode as needed.. Discharge Information Case Management Discharge Plan : Case Management Discharge Plan Data 07/17/2023 11:35 EST Discharge Level of Care at Discharge assisted facility Discharge Nursing Homes/Rehab Facilities [facility] Agency Surgery Tech #1 intake Service Categories #1 Occupational Therapy, Physical Therapy, Mcfp, Reflesher 07/16/2023 10:52 EST Discharge Level of Care at Discharge assisted facility (Modified) Discharge Nursing Homes/Rehab Facilities [facility] Discharge VNA/Hospice/Home Care In Error (In Error) Name of Agency #1 In Error (In Error) Service Categories #1 Physical Therapy, Mcfp Service Comments #1 you are being discharged to rehab at [facility]. (Modified) 07/14/2023 14:15 EST Discharge Level of Care at Discharge Homehealth/VNA Discharge VNA/Hospice/Home Care [facility] [phone] 07/14/2023 11:15 EST Discharge Level of Care at Discharge Homehealth/VNA Discharge VNA/Hospice/Home Care [facility] [phone] Discharge Transportation Arranged [facility] [address] [facility] [phone] Discharge Arranged Transport Date/Time 07/14/2023 13:30 Mode of Transportation Arranged Chair Van Name of Agency #1 [facility] Agency Surgery Tech #1 Admission Service Categories #1 Physical Therapy, Mcfp Service Start Date and Time #1 07/14/2023 13:30 Service Comments #1 You are being discharged with Home Health Care. If you do not hear from them within 48hrs please call them directly. Name of Person Notified of Transfer Marilee - HCP and Patient Rehabilitation Discharge : Rehab Discharge Index 07/16/2023 8:42 EST Comments on treatment indicated 48 y/o legally blind male returns with a unwitnessed fall, CTH negative admitted for hepatic encephalopathy. See for transfers, gait, therex and balance. Rec rehab. Walker: distance 20-50 Distance pt will ambulate ~100' with RW and good balance Full chart review completed Yes Plan of care PT Gait training, Transfer training, Therapeutic exercise, Functional Activities, Balance training 07/13/2023 10:47 EST Comments on treatment indicated [...] Gait training, Therapeutic exercise, Balance training * Mayra LOUIE, Lisa Bowen: PERFORM, SIGN, VERIFY, SIGN Event Display: Progress Note Hospital Authored Date: [id number] Patient: GEMA CABEZAS Age: 48 years Sex: Male : 1975 Associated Diagnoses: None Author: Mayra LOUIE, Lisa Bowen Findings Problem Related to Alteration in Gastrointestinal : Alteration in Gastrointestinal Func/new 07/15/2023 22:00 EST Alteration in GI status Related to Hepatic Encephalitis Goals & Outcomes, Gastrointestinal Establish a regular pattern of elimination for pt, Nutritional intake is adequate for metabolic needs, Pt will achieve normal/improved fluid balance, Pt will have a bowel movement prior to discharge, Pt will maintain adequate GI function appropriate for pt, Ptwill maintain normal elimination patterns, Pt will resume/maintain adequate hemodynamic status, Pt w ill tolerate age appropriate diet prior to discharge Interventions, Gastrointestinal Assess/monitor abdomen for distention, tenderness, Assess/monitor abdominal girth & bowel function, Assess/monitor bowel pattern, bowel sounds, flatus, Assess/monitor number of bowel movements, Assess/monitor color, quantity, quality, consistency of stoo, Assess/monitor pt for nausea, vomiting, Assess/monitor effects of re-hydration, Assess/monitor intake &output, Assess if pt tolerating diet BH Goals/Interventions, Gastrointestinal Yes Gastrointestinal, Problem Start 07/15/2023 22:53 Reviewed plan with, Gastrointestinal Patient Patient Progression, Gastrointestinal Plan Initiation . Narrative/Incidental Pt assessed, legally blind, alert and oriented x3, denies any form of pain, VSS, all due meds give per MAR. Wound consulted. Albumin is 3.0, pt taking lactulose.. Discharge Information Case Management Discharge Plan : Case Management Discharge Plan Data 07/14/2023 14:15 EST Discharge Level of Care at Discharge Homehealth/VNA Discharge VNA/Hospice/Home Care [facility] [phone] 07/14/2023 11:15 EST Discharge Level of Care at Discharge Homehealth/VNA Discharge VNA/Hospice/Home Care [facility] [phone] Discharge Transportation Arranged [facility] [address] [facility] [phone] Discharge Arranged Transport Date/Time 07/14/2023 13:30 Mode of Transportation Arranged Chair Van Name of Agency #1 [facility] Agency Surgery Tech #1 Admission Service Categories #1 Physical Therapy, Mcfp Service Start Date and Time #1 07/14/2023 13:30 Service Comments #1 You are being discharged with Home Health Care. If you do not hear from them within 48hrs please call them directly. Name of Person Notified of Transfer Marilee - HCP and Patient Rehabilitation Discharge : Rehab Discharge Index 07/13/2023 [...] PT Gait training, Therapeutic exercise, Balance training Consult note * Sky WILSON, Lizzette Rivera: PERFORM Event Display: Consultation Note Authored Date: Patient: ??GEMA CABEZAS ? Age:??48 Years?Sex:??Male?:??1975?? Chief Complaint rt hip/BLE Reason for Consultation rt hip/BLE History of Present Illness Patient is a 48-year-old male seen at the request of the medical service for evaluation of rt hip/BLE. ??Patient was admitted[facility]from [facility] on [facility]15 s/p unwitnessed fall.??HPI obtained from chart review and patient. ??Patient [...] healing??since??incision and drainage; denies pain to the area.?Pt was evaluated by [facility] on 07/14;??wound noted to have hypergranulation tissue and treated topically w/silver nitrate.Pt reports recent fall at??[facility] resulting in abrasions to BLE, lt knee, and bilateral feet.??Patient??ambulates with assist of cane and rollator walker. [...] pain. :??Denies??urinary incontinence Neurologic:??No headache, dizziness. Musculoskeletal:??No rt hip wound or BLE pain Skin:??No rash or itching. ??See HPI Physical Exam Vitals & Measurements T:??97.9?F?? TMIN:??97.9?F?? TMAX:??98.5?F?? HR:??80??(Peripheral)?? RR:??19?? BP:??128/76?? SpO2:??100%?? WT:??73.8??kg?? Constitutional:??WD/WN male??in no distress. Mental Status:??Alert/oriented to [...] hip measuring approximately 1 x 0.5 x 0.2??with??clancy moist??hypergranulation tissue;??intact healed scar??proximal to wound. ??No point tenderness erythema edema??orinduration noted.?? No drainage noted; wound open to air. Multiple superficial abrasions to left knee, BLE, and bilateral feet w/old dried serosanguineous drainage present Psychiatric:??Euthymic mood, normal affect. Normal thought content, normal judgment. Assessment/Plan Assessment:??Pt w/PMH for alcoholic cirrhosis, esophageal varices status post TIPS, sleep apnea, neuropathy, insomnia, legal blindness, polysubstance abuse, anemia,??systolic heart murmur,??hepatic encephalopathy,Sherie's optic neuropathy, migraine, ANA LUISA who present w/poorly healing surgical wound tort hip and multiple abrasions to BLE due to recent fall. Pt was evaluated by [facility] on 07/14;??wound noted to have hypergranulation tissue and treated topically w/silver nitrate. Sharp debridement is not medically necessary for all wounds. ?? Abrasion of left foot (S90.812A)?? Abrasion of left knee (S80.212A)?? Abrasion of left leg (S80.812A)?? Abrasion of right foot (S90.811A)?? Abrasion of right leg (S80.811A):??Clean w/NS. Pat dry. Apply 2 layers of Xeroform; cut to size of wound bed. Cover w/gauze and lightly wrap w/shubham or secure w/medipore tape. Change QOD ?? Delayed surgical wound healing (T81.89XA)?? Open wound of right hip (S71.001A):??Clean w/NS. Pat dry. Apply Skin Prep to periwound. Apply 1 layer of Adaptic followed by Aquacel Ag; cut both to size of wound. Cover w/gauze and secure w/mediporetape. Change QOD ?? Discharge Planning:??Recommend pt f/u with local wound care center upon discharge for wound/ulcer management. If referring to [facility], please??request through the [employer] list listed as a tab in [...] free to reach out with any??concerns??or questions. Problem List/Past Medical History Ongoing AC joint [...] anemia ANA LUISA (obstructive sleep apnea) Overweight Pancytopenia Patellar contusion, seen by [facility] spring 2015 Vitamin D insufficiency Procedure/Surgical History ???TIPS - Transjugular intrahepatic portosystemic shunt (03/18/2015)???EGD (03/14/2015)???EGD (11/03/2014)???Laryngoscopy in 1988 Medications Inpatient acamprosate 333 mg oral delayed release tablet, 333 mg, By Mouth, 3 times a day Acetaminophen Tablet, 650 mg, By Mouth, Every 4 hours, PRN Docusate Sodium Capsule, 100 mg= 1 capsule, By Mouth, 2 times a day, PRN fluticasone 50 mcg/inh nasal spray, 50 mcg= 1 sprays, Nares, Both, 2 times a day, PRN folic acid 1 mg oral tablet, 1 mg, By Mouth, Daily furosemide 20 mg oral tablet, 20 mg, By Mouth, Every other day lactulose 10 gm/15 ml oral syrup, 20 Gm= 30 mL, By Mouth, 3 times a day magnesium oxide 400 mg oral tablet, 400 mg, By Mouth, 2 times a day Melatonin Tablet, 3 mg, By Mouth, Daily at bedtime, PRN MiraLax Powder, 17 Gm= 1 pack/packet, By Mouth, Daily, PRN Multivitamin Tablet, 1 tablet, By Mouth, Daily NaCL 0.9% Flush, 3 mL, IV Push, Every 8 hours NaCL 0.9% Flush, 3 mL, IV Push, Every 8 hours, PRN pantoprazole 40 mg oral delayed release tablet, 40 mg, By Mouth, Daily PARoxetine 10 mg oral tablet, 20 mg, By Mouth, Daily Robitussin DM [...] oral tablet, 50 mg, By Mouth, Daily Xifaxan 550 mg oral tablet, 550 mg, By Mouth, 2 times a day Home acamprosate 333 mg oral delayed release tablet, 666 mg= 2 tablet, By Mouth, 3 times a day amLODIPine 5 mg oral tablet, 1 tablet, By Mouth, Daily baclofen 10 mg oral tablet, 10 mg= 1 tablet, By Mouth, 3 times a day calcium (as carbonate)-vitamin D 500 mg-400 intl units oral tablet, 1 tablet, By Mouth, Daily Compression Stockings, See Instructions, 2 refills Diapers, See Instructions, 11 refills Disposable Underpads n39.498, See Instructions, 11 refills Eucerin Eczema Relief topical cream, 1 application, Topically, 2 times a day Flonase Allergy Relief 50 mcg/inh nasal spray, 50 mcg= 1 sprays, Nares, Both, 2 times a day folic acid 1 mg oral tablet, 1 mg= 1 tablet, By Mouth, Daily hydrOXYzine hydrochloride 10 mg oral tablet, 20 mg= 2 tablet, By Mouth, 2 times a day, PRN lactulose 10 gm/15 ml oral syrup, 20 Gm= 30 mL, By Mouth, 3 times a day Lasix 20 mg oral tablet, 20 mg= 1 tablet, By Mouth, Every other day Mag-Ox 400 400 mg oral tablet, 400 mg= 1 tablet, By Mouth, 2 times a day melatonin 3 mg oral tablet, 3 mg= 1 tablet, By Mouth, Daily at bedtime, PRN Neurontin 300 mg oral capsule, 300 mg= 1 capsule, By Mouth, Daily at bedtime pantoprazole 40 mg oral delayed release tablet, 1 tablet, By Mouth, Daily Paxil 20 mg oral tablet, 20 mg= 1 tablet, By Mouth, Daily R aircast ankle-stirrup [...] oral tablet, 1 tablet, By Mouth, Daily Voltaren Arthritis Pain 1% topical gel, 1 application, Topically, 4 times a day Walker, See Instructions Walker, See Instructions Xifaxan 550 mg oral tablet, 550 mg= 1 tablet, By Mouth, 4 times a day Allergies NSAIDs Tylenol??(Cirrhosis) aspirin??(Hx GI Bleed) ibuprofen??(Hx of GI Bleed) Social History Alcohol Use: Past. Frequency: Several times per day. Other: 18 beers per day. Previous treatment: Inpatient. Employment/School Status: Unemployed. 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 Exercise Exercise type: Walking. Home/Environment Living situation: [...] virus vaccine, inactivated 04/09/2022 Given Comments : [facility]: ??[id number] SARS-CoV-2 (COVID-19) mRNA-1273 vaccine 04/08/2021 Recorded influenza [...] vaccine, inactivated 04/29/2017 Given Comments : [04/29/2017] [id number] influenza virus vaccine, inactivated 04/15/2016 Given tetanus/diphtheria/pertussis, [...] Tet/diphth/pertussis, acel (oldterm) 08/02/2012 Given Note * Dixie Duke RN: PERFORM Event Display: Discharge/Transfer Note Hospital Authored Date: [id number] Nursing Discharge Note Entered On: 07/17/2023 17:58 EST Performed On: 07/17/2023 17:58 EST by Dixie Duke RN Nursing Discharge Note 2 Discharge Time : 07/17/2023 13:46 EST Discharge Level of Care at Discharge : assisted facility Discharge Nursing Homes/Rehab Facilities : [facility] Patient Left Unit Via : Ambulatory Patient Accompanied Off Unit with : Ambulance/Chair Van Personnel Handover Given to Transport Personnel : Yes DC Instructions Provided & Signed by Pt : Yes Patient Understands D/C Instructions : Yes Patient Instructions Discharge Signed : Yes Did Pt have Specialty Bed or Wound Vac : No Dixie Duke RN - 07/17/2023 17:58 EST * Juvenal Matthews MD: PERFORM Event Display: Discharge/Transfer Note Hospital Authored Date: [id number] Patient: ??GEMA CABEZAS ? Age:??48 Years?Sex:??Male?:??1975?? Patient Information Discharge Location: [facility] Primary Care Physician: Jany Baig DO Admit Date/Time: 07/15/23 04:06 Discharge Disposition Discharge Disposition: [facility] Facility/Rehab Discharge Diagnosis Fall (W19.XXXA) Hepatic encephalopathy (K76.82) Pancytopenia (D61.818) Alcoholic hepatitis, cirrhosis (K70.10) Abrasion of left foot (S90.812A) Abrasion of left knee (S80.212A) Abrasion of left leg (S80.812A) Abrasion of right foot (S90.811A) Abrasion of right leg (S80.811A) Delayed surgical wound healing (T81.89XA) Open wound of right hip (S71.001A) ?? _ Discharge Medications Acamprosate (acamprosate 333 mg oral delayed release tablet)?2?tab(s)?666?Milligram?By Mouth?3 times a day Amlodipine (amLODIPine 5 mg oral tablet)?1?tab(s)?By Mouth?Daily?^1R1. Baclofen (baclofen 10 mg oral tablet)?10?Milligram?1?tablet?By Mouth?3 times a day Calcium And Vitamin D Combination (calcium (as carbonate)-vitamin D 500 mg-400 intl units oral tablet)?1?tab(s)?By Mouth?Daily Diclofenac Topical (Voltaren Arthritis Pain 1% topical gel)?1?sydnie?Topically?4 times a day Durable Medical Equipment (Compression Stockings)?See Instructions?surgical, calf length 20-30 mm HgM79.89M79.606 Durable Medical Equipment (R aircast ankle-stirrup support brace)?See Instructions?Dx: R inversion ankle [id number] Durable Medical Equipment (Walker)?See Instructions?2 wheeled Walker.Dx: Falls, gait abnormality Durable Medical Equipment (Urinal)?See Instructions?Dx: Cirrhoisis, ambulatory dysfunction, incontinency Durable Medical Equipment (Diapers)?See Instructions?Aduld Adjustable Pullups Sz L/XLuse 6 daily per 6 wk periodLON 99 mon39.48 Durable Medical Equipment (Disposable Underpads ?? n39.498)?See Instructions?2 daily per 6 wkperiod Durable Medical Equipment (Walker)?See Instructions?Use as needed Emollients, Topical (Eucerin Eczema Relief topical cream)?1?sydnie?Topically?2 times a day Fluticasone Nasal (Flonase Allergy Relief 50 mcg/inh nasal spray)?1?spray(s)?50?Microgram?Nares, Both?2 times a day Folic Acid (folic acid 1 mg oral tablet)?1?Milligram?1?tablet?By Mouth?Daily Furosemide (Lasix 20 mg oral tablet)?20?Milligram?1?tablet?By Mouth?Every other day Gabapentin (Neurontin 300 mg oral capsule)?300?Milligram?1?capsule?By Mouth?Dailyat bedtime HydrOXYzine (hydrOXYzine hydrochloride 10 mg oral tablet)?2?tab(s)?20?Milligram?By Mouth?2 times a day?as needed?as needed for anxiety Lactulose (lactulose 10 gm/15 ml oral syrup)?30?Milliliter?20?gram?By Mouth?3 times a day Magnesium Oxide (Mag-Ox 400 400 mg oral tablet)?1?tab(s)?400?Milligram?By Mouth?2times a day Melatonin (melatonin 3 mg oral tablet)?1?tab(s)?3?Milligram?By Mouth?Daily at bedtime?as needed?as needed for insomnia Multivitamin (Tab-A-Jesse oral tablet)?1?tab(s)?By Mouth?Daily?R1. Pantoprazole (pantoprazole 40 mg oral delayed release tablet)?1?tab(s)?By Mouth?Daily?^1R1. Paroxetine (Paxil 20 mg oral tablet)?20?Milligram?1?tablet?By Mouth?Daily Pyridoxine (Vitamin B6 50 mg oral tablet)?1?tablet?By Mouth?Daily?R1. Rifaximin (Xifaxan 550 mg oral tablet)?1?tab(s)?550?Milligram?By Mouth?4 times a day Spironolactone (spironolactone 25 mg oral tablet)?1?tablet?By Mouth?Daily?^1R2. Thiamine (Vitamin B1 100 mg oral tablet)?1?tablet?By Mouth?Daily Trazodone (traZODone 50 mg oral tablet)?2?tablet?By Mouth?Daily at bedtime?^2R4. ? Quality Measures Tobacco Use Treatment:? Future Appointments Wednesday 1:30 PM EST ?? Where: [facility] Status: Pending 2023 11:00 AM EDT ?? With: Dillon LEE, Heron Kelley Where: [facility] [address] [place] [address]- Status: Pending Objective Assessment and Plan ?Fall (W19.XXXA):??48-year-old male with past medical history of alcoholic cirrhosis, esophageal varices status post TIPS, sleep apnea, neuropathy, insomnia, legal blindness, history of polysubstance abuse, anemia, was admitted from 07/12-07/14??question of confusion, fall at the residential. CT ofthe head was unremarkable patient was admitted for overnight monitoring.? Mechanical fall patient reports??he got up??fine when asked about walker lost his balance and fell down he reports he uses??2 walkers??of different kinds.??He denies any loss of consciousness Evaluated by PT: discharged to rehab Expected length of stay : Less than 30 days ? Hepatic encephalopathy-reported patient is currently alert??and oriented??giving a clear history,??ammonia was elevated 168 on admission??he is compliant with lactulose repeat ammonia down to 120 ?CT H and C spine non acute On exam left??eyebrow laceration??no active bleeding??left??periorbital swelling stable ??-Continue home medication including lactulose gabapentin ? Abrasion of left foot (S90.812A)?? Abrasion of left knee (S80.212A)?? Abrasion of left leg (S80.812A)?? Abrasion of right foot (S90.811A)?? Abrasion of right leg (S80.811A):? Evaluated by wound care ?? Recommendations: Clean w/NS. Pat dry. Apply 2 layers of Xeroform; cut to size of wound bed. Cover w/gauze and lightly wrap w/shubham or secure w/medipore tape. Change QOD ?? Delayed surgical wound healing (T81.89XA)?? Open wound of right hip (S71.001A):??Clean w/NS. Pat dry. Apply Skin Prep to periwound. Apply 1 layer of Adaptic followed by [employer] Ag; cut both to size of wound. Cover w/gauze and secure w/mediporetape. Change QOD ? Alcoholic hepatitis, cirrhosis ??h/o Esophageal Varices- Chronically??elevated LFTs -Outpatient followup ? Pancytopenia- Pancytopenia with WBC 3.1, H&H 10.8 /32.4, platelets 78 close to baseline ??Likely secondary to cirrhosis ??no evidence of major bleeding concerns ? Anxiety ??depression- Continue home paroxetine, trazadone ? Vital Signs?? Temperature: 98.2 DegF (07/17/23 08:20:00) Temperature Route: Oral (07/17/23 08:20:00) Pulse Rate:??99 bpm??High (07/17/23 08:20:00) Respiratory Rate: 17 br/min (07/17/23 08:20:00) Systolic Blood Pressure: 127 mm Hg (07/17/23 08:20:00) Diastolic Blood Pressure: 80 mm Hg (07/17/23 08:20:00) Blood pressure sites: Arm, right (07/17/23 08:20:00) Mean Arterial Pressure: 96 mm Hg (07/17/23 08:20:00) Pulse Pressure: 47 mm Hg (07/17/23 08:20:00) Oxygen Saturation: 100 % (07/17/23 08:20:00) Mode of Delivery (Oxygen): Room air (07/17/23 08:20:00) Early Warning Score: 3 (07/17/23 08:21:07) ? . Physical Exam General: [Alert, in no acute cardiopulmonary distress.] Mental Status: [Oriented to person, place and time. Normal affect.] Patient has a laceration??at the left eyebrow and??periorbital ecchymosis Head: [Normocephalic.] Eyes: [Pupils are equal, round and reactive to light. Extraocular muscles intact.] Ear, Nose and Throat: [Oropharynx clear, mucous membranes moist.?? Respiratory: [Clear to auscultation and percussion. No wheezing, rales or rhonchi.] Cardiovascular: [Heart sounds normal. No thrills. Regular rate and rhythm, no murmurs, rubs or gallops.] Gastrointestinal: [Abdomen soft, non-tender, non-distended. Normal bowel sounds. No pulsatile mass.No hepatosplenomegaly.] Genitourinary: [No costovertebral angle tenderness.] Neurologic: [Cranial nerves II-XII grossly intact. No focal neurological deficits. Deep tendon reflexes +2 bilaterally. Flexor plantar response. Moves all extremities spontaneously. Sensation intact bilaterally.] Skin: [No rashes or lesions. No petechiae or purpura. No edema.] Musculoskeletal: [No cyanosis or clubbing. No gross deformities. Normal range of motion.] Lymphatics: [Palpation of neck reveals no swelling or tenderness of neck nodes. Palpation of groin reveals no swelling or tenderness of groin nodes.] Psychiatric: [Not anxious fully cooperative following commands.] Pending Results No Pending Results Follow-Up Appointments Added Follow Up ?Time Frame ?Comments Jany Baig DO?1 to 2 weeks Patient Instructions -You were admitted for fall and hepatic encephalopathy -You were evaluated by physical therapy and discharged to rehab -Take medications as mentioned in discharge summary -Follow up with PCP as outpatient?? Home Health Face to Face ^HomeHealthFTF 32_ minutes spent on discharge * Colette Jones RN: PERFORM, SIGN, VERIFY Event Display: Case Management Discharge Plan Authored Date: [id number] Patient: GEMA CABEZAS Age: 48 years Sex: Male : 1975 Associated Diagnoses: None Author: Colette Jones RN Discharge Plan Case Management Discharge Plan : Case Management Discharge Plan Data 07/17/2023 11:35 EST Discharge Level of Care at Discharge assisted facility Discharge Nursing Homes/Rehab Facilities [facility] Agency Surgery Tech #1 intake Service Categories #1 Occupational Therapy, Physical Therapy, Mcfp, Reflesher 07/16/2023 10:52 EST Discharge Level of Care at Discharge assisted facility (Modified) Discharge Nursing Homes/Rehab Facilities [facility] Discharge VNA/Hospice/Home Care In Error (In Error) Name of Agency #1 In Error (In Error) Service Categories #1 Physical Therapy, Mcfp Service Comments #1 you are being discharged to rehab at [facility]. (Modified) * Dyana LOUIE, Dixie Srivastava: PERFORM Event Display: Patient Education/Instruction Authored Date: [id number] Inpatient Adult Discharge Instructions. [address] [address] Name: GEMA CABEZAS : 1975?? Visit: 07/15/2023 04:06?? Current Date: 07/17/2023 12:15 ?? Account: [id number]?? Inpatient Adult Discharge Instructions We would like [...] and their families. Surveys are administered by [employer] ?? If further treatment with your primary care physician or another doctor is recommended, it is important for you to keep the appointment. Call your primary care physician or return to the Emergency Department immediately if your condition worsens, fails to improve, or new symptoms develop. If you need to find a doctor, you can call [facility] [employer] Link for a referral at [phone] or toll free at [phone] ([phone]) or log in to [email or web address].. ?? [facility], in keeping with [facility] guidance, no longer requires face masks for [...] portal or by using a health care sydnie of your choosing. [employer] is a website that allows you to securely view your medical information including your hospital discharge summary, office visit summaries, medications and follow-up visits. You can also request appointments, renew medications, and request access to your medical information using a health care sydnie of your choosing, or just ask a question. You can enroll at [email or web address] or register during your next office visit. You have been discharged from [facility], Patient Care Unit: D3B??. If you have any questions regarding these instructions, including results of studies pending, afteryou leave, please call us and we will be happy to assist you 04/01. [facility] Your Care Team Attending Physician Juvenal Matthews MD?? Consulting Providers Juvenal Matthews MD?? Discharging Providers Juvenal Matthews MD Reason for Your Visit Pt from [facility]', reported unwitnessed fall unknown LOC, no anticoagulation, ??pt ETOH, bruising and abrasion under L eye, sage lower leg abrasions per EMS?? Your Diagnosis Fall Pancytopenia Alcoholic hepatitis, cirrhosis Abrasion of left foot Abrasion of left knee Abrasion of left leg Abrasion of right foot Abrasion of right leg Delayed surgical wound healing General medical Open wound of right hip Tests Performed Below is a partial list of the tests performed during your hospitalization. You may have had other tests and procedures not included in this list. Please discuss all test results with your provider. Albumin Level Alk Phos ALT Ammonia Venous AST Bilirubin Total + Direct BUN CBC CBC w/ Differential Comprehensive Metabolic Panel Creatinine Electrolytes Ethanol Level GLUCOSE POC High??Sensitivity??Troponin T HOLD BLUE TUBE Troponin T, High Sensitivity CT Cervical Spine W/O Contrast CT Head/Brain W/O Contrast XR Knee 1 or 2 Views Left XR Knee 1 or 2 Views Right No tests performed during this visit.?? Primary Care Provider Jany Baig DO? Discharge Vitals Temperature: 97.9 DegF Weight: 73.8 kg Pulse Rate:??109 bpm??High ?? Respiratory Rate: 16 br/min ?? Systolic Blood Pressure:??147 mm Hg??High ?? Diastolic Blood Pressure:??89 mm Hg??High ?? Oxygen Saturation: 100 % ?? Studies Pending All studies ordered during this hospital stay have been completed unless listed below. Please discuss all pending results with your provider listed above in these instructions. ?? No incomplete studies found?? What to do next Instructions From Your Doctor -You were admitted for fall and hepatic encephalopathy -You were evaluated by physical therapy and discharged to rehab -Take medications as mentioned in discharge summary -Follow up with PCP as outpatient? Orders??:Regular Diet :stable :Fair? 07/17/23 12:03:00 EST?? Scheduled Follow-Up Appointments Wednesday 1:30 PM EST ?? Where: [facility] Status: Pending 2023 11:00 AM EDT ?? With: Heron Carranza MD Where: [facility] [address] [place] [address]- Status: Pending You Need to Schedule the Following Appointments Follow Up with??Jany Baig DO When:??Within 1 to 2 weeks Discharge Medications GEMA CABEZAS :1975 Visit Date:07/15/2023 Medications: Please continue your medications until treatment is completed or stopped by your provider. Medications not listed below should be discontinued. Discuss any questions related to medications with your provider. What How Much When Why Instructions Next Dose Changed Acamprosate (acamprosate 333 mg oral delayed release tablet) 2 tab(s) Oral 3 times a day 3pm 07/17/23 Changed Fluticasone Nasal (Flonase Allergy Relief 50 mcg/ inh nasal spray) 1 spray(s) Nares, Both Twice a day 9pm tonight 07/17/23 Changed Folic Acid (folic acid 1 mg oral tablet) 1 tab(s) Oral Daily tomorrow am 07/18/23 Changed Furosemide (Lasix 20 mg oral tablet) 1 tab(s) Oral Every other day 07/19/23 AM Changed Gabapentin (Neurontin 300 mg oral capsule) 1 capsule Oral Daily at Bedtime tonight 07/18/23 Changed HydrOXYzine (hydrOXYzine hydrochloride 10 mg oral tablet) 2 tab(s) Oral Twice a day as needed for as needed for anxiety as needed Changed Magnesium Oxide (Mag-Ox 400 400 mg oral tablet) 1 tab(s) Oral Twice a day 9pm tonight 07/17/23 Changed Melatonin (melatonin 3 mg oral tablet) 1 tab(s) Oral Daily at Bedtime as needed for as needed for insomnia as needed Changed Paroxetine (Paxil 20 mg oral tablet) 1 tab(s) Oral Daily tomorrow am 07/17/23 Changed Rifaximin (Xifaxan 550 mg oral tablet) 1 tab(s) Oral 4 times a day 4pm today 07/17/23 Unchanged Amlodipine (amLODIPine 5 mg oral tablet) 1 tab(s) Oral Daily ^1R1. ?? tomorrow am 07/18/23 Unchanged Baclofen (baclofen 10 mg oral tablet) 1 tab(s) Oral 3 times a day 3pm today 07/17/23 Unchanged Calcium And Vitamin D Combination (calcium (as carbonate)-vitamin D 500 mg-400 intl unitsoral tablet) 1 tab(s) Oral Daily tomorrow am 07/18/23 Unchanged Diclofenac Topical (Voltaren Arthritis Pain 1% topical gel) 1 sydnie Topically 4 times a day 4pm today 07/17/23 Unchanged Durable Medical Equipment (Compression Stockings) See instructions Leg swelling Leg pain surgical, calf length 20-30 mm Hg M79.89 M79.606 ?? Unchanged Durable Medical Equipment (Diapers) See instructions Frequent urinary incontinence Aduld Adjustable Pullups Sz L/ XL use 6 daily per 6 wk period RAFI 99 mo n39.48 ?? Unchanged Durable Medical Equipment (Disposable Underpads n39.498) See instructions Frequent urinary incontinence 2 daily per 6 wk period ?? Unchanged Durable Medical Equipment (R aircast ankle-stirrup support brace) See instructions Ankle sprain Dx: R inversion ankle sprain s93.409a ?? Unchanged Durable Medical Equipment (Urinal) See instructions Dx: Cirrhoisis, ambulatory dysfunction, incontinency ?? Unchanged Durable Medical Equipment (Walker) See instructions Use as needed ?? Unchanged Durable Medical Equipment (Walker) See instructions 2 wheeled Walker. Dx: Falls, gait abnormality ?? Unchanged Emollients, Topical (Eucerin Eczema Relief topical cream) 1 sydnie Topically Twice a day 9pm tonight 07/17/23 Unchanged Lactulose (lactulose 10 gm/ 15 ml oral syrup) 30 Milliliter Oral 3 times a day 3pm today 07/17/23 Unchanged Multivitamin (Tab-A-Jesse oral tablet) 1 tab(s) Oral Daily R1. ?? tomorrow am 07/18/23 Unchanged Pantoprazole (pantoprazole 40 mg oral delayed release tablet) 1 tab(s) Oral Daily ^1R1. ?? tomorrow am 07/18/23 Unchanged Pyridoxine (Vitamin B6 50 mg oral tablet) 1 tab(s) Oral Daily R1. ?? tomorrow am 07/18/23 Unchanged Spironolactone (spironolactone 25 mg oral tablet) 1 tab(s) Oral Daily ^1R2. ?? tomorrow am 07/18/23 Unchanged Thiamine (Vitamin B1 100 mg oral tablet) 1 tab(s) Oral Daily tomorrow am 07/18/23 Unchanged Trazodone (traZODone 50 mg oral tablet) 2 tab(s) Oral Daily at Bedtime ^2R4. ?? tonight 07/17/23 Prescription Given During Visit No new medications prescribed at time of discharge.?? Laboratory Results Below is a partial list of the most recent Laboratory test results done prior to this discharge. You may have had other tests and procedures not included in this list. Please discuss all test resultswith your provider. Albumin Level (07/16/2023) ???Albumin - 3.3 Gm/dL Alk Phos (07/16/2023) ???Alkaline Phosphatase - 150 units/L ALT (07/16/2023) ???ALT (SGPT) - 40 units/L Ammonia Venous (07/16/2023) ???Ammonia, Venous - 120 ??mole/L AST (07/16/2023) ???AST (SGOT) - 66 units/L Bilirubin Total + Direct (07/16/2023) ???Bilirubin, Total - 1.6 mg/dL???Bilirubin, Direct - 0.4 mg/dL???Bilirubin, Indirect - 1.2 mg/dL BUN (07/16/2023) ???BUN - 14 mg/dL CBC (07/16/2023) ???WBC - 5.9 k/mm3???RBC - 3.79 m/mm3???Hgb - 11.7 Gm/dL???Hct - 34.6 %???MCV - 91.3 femtoliters???MCH - 30.9 pg???MCHC - 33.8 g/dL???Platelet Count - 101 k/mm3???RDW-SD - 47.6 femtoliters???MPV - 10.9 femtoliters???Nucleated RBC (Automated) - 0.0 #/100 WBC'S???Abs. NRBC - 0.0 k/mm3 CBC w/ Differential (07/15/2023) ???WBC - 3.1 k/mm3???RBC - 3.55 m/mm3???Hgb - 10.8 Gm/dL???Hct - 32.4 %???MCV - 91.3 femtoliters???MCH - 30.4 pg???MCHC - 33.3 g/dL???Platelet Count - 78 k/mm3???RDW-SD - 47.0 femtoliters???MPV - 10.1 femtoliters???Nucleated RBC (Automated) - 0.0 #/100 WBC'S???Abs. NRBC - 0.0 k/mm3???Abs. Neut - 1.6 k/mm3???Abs. Lymph - 0.9 k/mm3???Abs. [place] - 0.4 k/mm3???Abs. Eo - 0.1 k/mm3???Abs. Baso - 0.0 k/mm3???Neut % - 53.1 %???Lymph % - 29.2 %???[place] % - 12.8 %???Eos % - 3.9 %???Baso % - 0.7 %???Imm Gran - 0.3 %???Abs. Imm Gran - 0.0 k/mm3 Comprehensive Metabolic Panel (07/15/2023) ???Sodium - 140 mmol/L???Potassium - 4.0 mmol/L???Chloride - 109 mmol/L???Bicarbonate Level - 22 mmol/L???Anion Gap - 9???Glucose Level - 185 mg/dL???BUN - 12 mg/dL???Creatinine-Blood - 0.8 mg/dL???Estimated GFR Creatinine - 109 ML/MIN/1.73 M2???Calcium - 8.7 mg/dL???Protein, Total - 6.5 Gm/dL???Alb umin - 3.0 Gm/dL???AG Ratio - 0.9???Alkaline Phosphatase - 156 units/L???AST (SGOT) - 48 units/L???ALT (SGPT) - 31 units/L???Bilirubin, Total - 0.9 mg/dL Creatinine (07/16/2023) ???Creatinine-Blood - 0.9 mg/dL???Estimated GFR Creatinine - 104 ML/MIN/1.73 M2 Electrolytes (07/16/2023) ???Sodium - 137 mmol/L???Potassium - 4.6 mmol/L???Chloride - 109 mmol/L???Bicarbonate Level - 18 mmol/L???Anion Gap - 10 Ethanol Level (07/15/2023) ???Ethanol, Serum or Plasma - NONE DETECTED GLUCOSE POC (07/15/2023) ???Glucose, POC - 213 mg/dL High??Sensitivity??Troponin T (07/15/2023) ???High Sensitivity Troponin (HSTnT) - 6 ng/L HOLD BLUE TUBE (07/15/2023) ???Hold Blue Top - SPECIMEN DISCARDED AFTER 4 HOURS. Troponin T, High Sensitivity (07/15/2023) ? ?High Sensitivity Troponin (HSTnT) - <6 ng/L Allergies (NKA means No Known Allergies) NSAIDs Tylenol??(Cirrhosis) aspirin??(Hx GI Bleed) ibuprofen??(Hx of GI Bleed) Problems Active Problems??(23) AC joint derangement?? Alcohol abuse?? Alcoholic hepatitis, [...] anemia?? ANA LUISA (obstructive sleep apnea)?? Overweight?? Pancytopenia?? Patellar contusion, seen by [facility] spring 2015?? Vitamin D insufficiency?? Education Materials Below is the list of Educational Leaflet Providered with your Discharge Instructions. Fall??Prevention?? Understanding Hepatic Encephalopathy (HE)?? Valuables and Belongings I fully understand and agree that [facility] accepts no responsibility for all my [...] Review of Valuable and Belonging List: With patient, With witness Date for Pt to Sign Valuables/Belongings: 07/15/23 15:52:00 ?? Other Discharge Information ? Case Management Discharge Plan?? Discharge Plan?? Discharge Agency Information?? Discharge Level of Care at Discharge: assisted facility Agency Surgery Tech #1: intake Discharge Nursing Homes/Rehab Facilities: [facility] Service Categories #1: Occupational Therapy, Physical Therapy, Mcfp, Reflesher ?? Service Comments #1: you are being discharged to rehab at [facility]. ?? Pulmonary Rehab Status?? Pulmonary Rehab Discharge Status?? Respiratory Rate: 16 br/min ? Common Emergency Awareness Tips IS [...] are strongly encouraged to quit. Please call [employer] Link at [phone] or [phone] ([phone]) or log in to [email or web address] for referrals to smoking cessation programs. ?? 970 Suicide & Crisis Lifeline is available 04/01 if you or someone you know needs to find a reason to keep living. By calling 029 you'll be connected to a skilled, trained counselor at a crisis center in your area. INPATIENT DISCHARGE INSTRUCTIONS SIGNATURE PAGE GEMA CABEZAS Location:[facility] Registration Date and Time:07/15/2023 04:06 EST Primary Care Physician: Jany Baig DO, Attending Physician: Juvenal Matthews MD, I RAULITOGEMA, have received the above patient education materials/instructions and have verbalized understanding. If ambulance or transport services are being used I further acknowledge being given a choice of service. ?? If you need to contact me, please call me at this number: . Patient/Party Host Name: Patient/Party Host Signature: Relationship to Patient: Witness Name/Signature: Date: * Dixie Turpin RN: PERFORM Event Display: Patient Education Leaflets Authored Date: [id number] Fall??Prevention ?? [id number] Fall??Prevention Falls often take place due to slipping, tripping, or losing your balance. Millions of people fall every year and injure themselves.??Among older adults in the [place] falls are the most common cause oftraumatic brain injuries. Every 20 minutes, an older adult dies from a fall. Here are ways to reduce your risk of falling again: ??? Think about your fall. Was there anything that caused your fall that can be fixed, removed, or replaced? Make your home safe by keeping walkways clear of objects you may trip over, such as electrical cords. ??? Use nonslip pads under rugs. Don't use area rugs orsmall throw rugs. ??? Use nonslip mats in bathtubs and showers. ??? Hang grab rails by the toilet and inside and outside the shower. ??? Install handrails and lights on staircases. The handrails should be on both sides of the stairs. ??? Use night lights. ??? Don't walk in poorly lit areas. ??? Don't stand on chairs or wobbly ladders. ??? Use care when reaching overhead or looking up.??This position can cause a loss of balance. ??? Be sure your shoes fit well, are in good condition, and have non slip bottoms.? Wear shoes both inside and outside of your home. Don't go barefoot or wear slippers. ??? Be cautious when going up and down stairs, curbs, and when walking on uneven sidewalks. ??? If your balance is poor, consider using a cane or walker. Talk with your healthcare provider abouthaving a balance assessment. ??? If your fall was related to alcohol use, stop or limit alcohol intake.??Ask your provider for help if you think you may overuse alcohol and can't stop. ??? If your fall was related to use of sleeping medicines, talk with your provider about this.??You may need to reduce your dosage at bedtime if you wake up during the night to go to the bathroom.? To reducethe need for nighttime bathroom trips: o Don't drink fluids for several hours before going to bed oEmpty your bladder before going to bed o Men can keep a urinal at the bedside ??? Stay as active asyou can. Balance, flexibility, strength, and endurance all come from exercise. They all play a rolein preventing falls. Ask your provider which types of activity are right for you. Try to do some type of exercise every day. ??? Get your eyes checked once a year or more often if your vision changes??? If you have pets, know where they are before you stand up or walk so you don't trip over them. ??? Go over all your medicines with a pharmacist or other provider. This is to see if any of them could make you more likely to fall. Have this type of medicine review at least once every year. ??? Ifyour provider advises a new medicine, ask if the side effects will affect your balance. ??? Don't move quickly from one position to another. For instance, don't stand up fast from sitting. This can cause dizziness and may lead to a fall. ??? Sit down when putting on pants, socks, and shoes. This will make you less likely to lose your balance and fall. ??? Always let your provider know if you havefallen since your last visit. ??? Contact your provider right away if you're having balance problems or falling more often. Last Reviewed Date: 2021 ?? 5821-3975 [employer] All rights reserved. This information is not intended as a substitute for professional medical care. Always follow your healthcare professional's instructions. ?? * Dyana LOUIE, Dixie Srivastava: PERFORM Event Display: Patient Education Leaflets Authored Date: [id number] Understanding Hepatic Encephalopathy (HE) ?? 75487 Understanding Hepatic Encephalopathy (HE) Hepatic encephalopathy (HE) [...] treated early. How to say it [id number] ?? What causes hepatic encephalopathy? Researchers don???t [...] symptoms ?? Last Reviewed Date: 2021 ?? 5855-1092 [employer]. All rights reserved. This information is not intended as a substitute for professional medical care. Always follow your healthcare professional's instructions. ?? * Maryellen LEE, Eliel: PERFORM Event Display: Discharge/Transfer Note Hospital Authored Date: [id number] Patient: ??GEMA CABEZAS ? Age:??48 Years?Sex:??Male?:??1975?? Patient Information Discharge Location: [facility] Primary Care Physician: Jany Baig DO Admit Date/Time: 07/15/23 07:14 Discharge Disposition Discharge Disposition: ?? Discharge Diagnosis Fall (W19.XXXA) Hepatic encephalopathy (K76.82) Pancytopenia (D61.818) Alcoholic hepatitis, cirrhosis (K70.10) Abrasion of left foot (S90.812A) Abrasion of left knee (S80.212A) Abrasion of left leg (S80.812A) Abrasion of right foot (S90.811A) Abrasion of right leg (S80.811A) Delayed surgical wound healing (T81.89XA) Open wound of right hip (S71.001A) Alcohol abuse Alcoholic hepatitis, cirrhosis Anemia Anxiety and depression; admission to [facility] in 06/2015 ED (erectile dysfunction) Esophageal varices s/p TIPS Gynecomastia, male Hepatic encephalopathy Sherie's Optic neuropathy Migraine Neuropathy ANA LUISA (obstructive sleep apnea) Patellar contusion, seen by [facility] spring 2015 Vitamin D insufficiency ?? _ Discharge Medications Acamprosate (acamprosate 333 mg oral delayed release tablet)?2?tab(s)?666?Milligram?By Mouth?3 times a day Amlodipine (amLODIPine 5 mg oral tablet)?1?tab(s)?By Mouth?Daily?^1R1. Baclofen (baclofen 10 mg oral tablet)?10?Milligram?1?tablet?By Mouth?3 times a day Calcium And Vitamin D Combination (calcium (as carbonate)-vitamin D 500 mg-400 intl units oral tablet)?1?tab(s)?By Mouth?Daily Diclofenac Topical (Voltaren Arthritis Pain 1% topical gel)?1?sydnie?Topically?4 times a day Durable Medical Equipment (Compression Stockings)?See Instructions?surgical, calf length 20-30 mm HgM79.89M79.606 Durable Medical Equipment (R aircast ankle-stirrup support brace)?See Instructions?Dx: R inversion ankle wastozi63.409a Durable Medical Equipment (Walker)?See Instructions?2 wheeled Walker.Dx: Falls, gait abnormality Durable Medical Equipment (Urinal)?See Instructions?Dx: Cirrhoisis, ambulatory dysfunction, incontinency Durable Medical Equipment (Diapers)?See Instructions?Aduld Adjustable Pullups Sz L/XLuse 6 daily per 6 wk periodLON 99 mon39.48 Durable Medical Equipment (Disposable Underpads ?? n39.498)?See Instructions?2 daily per 6 wkperiod Durable Medical Equipment (Walker)?See Instructions?Use as needed Emollients, Topical (Eucerin Eczema Relief topical cream)?1?sydnie?Topically?2 times a day Fluticasone Nasal (Flonase Allergy Relief 50 mcg/inh nasal spray)?1?spray(s)?50?Microgram?Nares, Both?2 times a day Folic Acid (folic acid 1 mg oral tablet)?1?Milligram?1?tablet?By Mouth?Daily Furosemide (Lasix 20 mg oral tablet)?20?Milligram?1?tablet?By Mouth?Every other day Gabapentin (Neurontin 300 mg oral capsule)?300?Milligram?1?capsule?By Mouth?Dailyat bedtime HydrOXYzine (hydrOXYzine hydrochloride 10 mg oral tablet)?2?tab(s)?20?Milligram?By Mouth?2 times a day?as needed?as needed for anxiety Lactulose (lactulose 10 gm/15 ml oral syrup)?30?Milliliter?20?gram?By Mouth?3 times a day Magnesium Oxide (Mag-Ox 400 400 mg oral tablet)?1?tab(s)?400?Milligram?By Mouth?2times a day Melatonin (melatonin 3 mg oral tablet)?1?tab(s)?3?Milligram?By Mouth?Daily at bedtime?as needed?as needed for insomnia Multivitamin (Tab-A-Jesse oral tablet)?1?tab(s)?By Mouth?Daily?R1. Pantoprazole (pantoprazole 40 mg oral delayed release tablet)?1?tab(s)?By Mouth?Daily?^1R1. Paroxetine (Paxil 20 mg oral tablet)?20?Milligram?1?tablet?By Mouth?Daily Pyridoxine (Vitamin B6 50 mg oral tablet)?1?tablet?By Mouth?Daily?R1. Rifaximin (Xifaxan 550 mg oral tablet)?1?tab(s)?550?Milligram?By Mouth?4 times a day Spironolactone (spironolactone 25 mg oral tablet)?1?tablet?By Mouth?Daily?^1R2. Thiamine (Vitamin B1 100 mg oral tablet)?1?tablet?By Mouth?Daily Trazodone (traZODone 50 mg oral tablet)?2?tablet?By Mouth?Daily at bedtime?^2R4. ? Quality Measures Tobacco Use Treatment:? Future Appointments Wednesday 1:30 PM EST ?? Where: [facility] Status: Pending 2023 11:00 AM EDT ?? With: Dillon LEE, Heron Kelley Where: [facility] [address] [place] [address]- Status: Pending Objective Assessment and Plan Fall (W19.XXXA):??48-year-old male with past medical history of alcoholic cirrhosis, esophageal varices status post TIPS, sleep apnea, neuropathy, insomnia, legal blindness, history of polysubstance abuse, anemia, was admitted from 07/12-07/14??question of confusion, fall at the residential. CT of the head was unremarkable patient was admitted for overnight monitoring.? Mechanical fall patient reports??he got up??fine when asked about walker lost his balance and fell down he reports he uses??2 walkers??of different kinds.??He denies any loss of consciousness Hepatic encephalopathy-reported patient is currently alert??and oriented??giving a clear history,??ammonia was elevated 168 on admission??he is compliant with lactulose repeat ammonia down to 120 ?CT H and C spine non acute On exam left??eyebrow laceration??no active bleeding??left??periorbital swelling stable ??-Continue home medication including lactulose gabapentin ? Alcoholic hepatitis, cirrhosis ??h/o Esophageal Varices- Chronically??elevated LFTs ? Pancytopenia- Pancytopenia with WBC 3.1, H&H 10.8 /32.4, platelets 78 close to baseline ??Likely secondary to cirrhosis ??no evidence of major bleeding concerns ? Anxiety ??depression- Continue home paroxetine, trazadone ? Disposition back to the residential resume all activities as before no change to medications ?? Discharge Planning:? Vital Signs?? Temperature: 98.4 DegF (07/16/23 07:07:00) Temperature Route: Oral (07/16/23 07:07:00) Pulse Rate: 83 bpm (07/16/23 07:07:00) Respiratory Rate: 16 br/min (07/16/23 07:07:00) Systolic Blood Pressure: 132 mm Hg (07/16/23 07:07:00) Diastolic Blood Pressure: 69 mm Hg (07/16/23 07:07:00) Blood pressure sites: Arm, right (07/16/23 07:07:00) Mean Arterial Pressure: 90 mm Hg (07/16/23 07:07:00) Pulse Pressure: 63 mm Hg (07/16/23 07:07:00) Oxygen Saturation: 99 % (07/16/23 07:07:00) Mode of Delivery (Oxygen): Room air (07/16/23 07:07:00) Early Warning Score: 3 (07/16/23 07:08:31) ? . Physical Exam General: [Alert, in no acute cardiopulmonary distress.] Mental Status: [Oriented to person, place and time. Normal affect.] Patient has a laceration??at the left eyebrow and??periorbital ecchymosis Head: [Normocephalic.] Eyes: [Pupils are equal, round and reactive to light. Extraocular muscles intact.] Ear, Nose and Throat: [Oropharynx clear, mucous membranes moist.?? Respiratory: [Clear to auscultation and percussion. No wheezing, rales or rhonchi.] Cardiovascular: [Heart sounds normal. No thrills. Regular rate and rhythm, no murmurs, rubs or gallops.] Gastrointestinal: [Abdomen soft, non-tender, non-distended. Normal bowel sounds. No pulsatile mass.No hepatosplenomegaly.] Genitourinary: [No costovertebral angle tenderness.] Neurologic: [Cranial nerves II-XII grossly intact. No focal neurological deficits. Deep tendon reflexes +2 bilaterally. Flexor plantar response. Moves all extremities spontaneously. Sensation intact bilaterally.] Skin: [No rashes or lesions. No petechiae or purpura. No edema.] Musculoskeletal: [No cyanosis or clubbing. No gross deformities. Normal range of motion.] Lymphatics: [Palpation of neck reveals no swelling or tenderness of neck nodes. Palpation of groin reveals no swelling or tenderness of groin nodes.] Psychiatric: [Not anxious fully cooperative following commands.] Pending Results No Pending Results Follow-Up Appointments Added Follow Up ?Time Frame ?Comments Jovanni BLAS, Jany?1 to 2 weeks Post Discharge Care Discharge ?07/16/23 9:02:00 EST Home Health Face to Face ^HomeHealth[facility] Results Discharge Labs BLOOD COUNT & DIFF WBC 5.9 k/mm3 ()?? 07/16/2023 01:37 RBC 3.79 m/mm3 (Low)?? 07/16/2023 01:37 Hgb 11.7 Gm/dL (Low)?? 07/16/2023 01:37 Hct 34.6 % (Low)?? 07/16/2023 01:37 MCV 91.3 femtoliters ()?? 07/16/2023 01:37 MCH 30.9 pg ()?? 07/16/2023 01:37 MCHC 33.8 g/dL ()?? 07/16/2023 01:37 Platelet Count 101 k/mm3 (Low)?? 07/16/2023 01:37 RDW-SD 47.6 femtoliters (High)?? 07/16/2023 01:37 MPV 10.9 femtoliters ()?? 07/16/2023 01:37 Nucleated RBC (Automated) 0.0 #/100 WBC'S ()?? 07/16/2023 01:37 Abs. NRBC 0.0 k/mm3 ()?? 07/16/2023 01:37 Abs. Neut 1.6 k/mm3 ()?? 07/15/2023 04:52 Abs. Lymph 0.9 k/mm3 ()?? 07/15/2023 04:52 Abs. [place] 0.4 k/mm3 ()?? 07/15/2023 04:52 Abs. Eo 0.1 k/mm3 ()?? 07/15/2023 04:52 Abs. Baso 0.0 k/mm3 ()?? 07/15/2023 04:52 Neut % 53.1 % ()?? 07/15/2023 04:52 Lymph % 29.2 % ()?? 07/15/2023 04:52 [place] % 12.8 % (High)?? 07/15/2023 04:52 Eos % 3.9 % ()?? 07/15/2023 04:52 Baso % 0.7 % ()?? 07/15/2023 04:52 Imm Gran 0.3 % ()?? 07/15/2023 04:52 Abs. Imm Gran 0.0 k/mm3 ()?? 07/15/2023 04:52 ?? CARDIAC High Sensitivity Troponin (HSTnT) <6 ng/L ()?? 07/15/2023 06:52 ? CHEM GENERAL Sodium 137 mmol/L ()?? 07/16/2023 01:37 Potassium 4.6 mmol/L ()?? 07/16/2023 01:37 Chloride 109 mmol/L (High)?? 07/16/2023 01:37 Bicarbonate Level 18 mmol/L (Low)?? 07/16/2023 01:37 Anion Gap 10 ()?? 07/16/2023 01:37 Glucose Level 185 mg/dL (High)?? 07/15/2023 04:53 Glucose, POC 213 mg/dL (High)?? 07/15/2023 04:29 BUN 14 mg/dL ()?? 07/16/2023 01:37 Creatinine-Blood 0.9 mg/dL ()?? 07/16/2023 01:37 Estimated GFR Creatinine 104 ML/MIN/1.73 M2 ()?? 07/16/2023 01:37 Calcium 8.7 mg/dL ()?? 07/15/2023 04:53 Protein, Total 6.5 Gm/dL ()?? 07/15/2023 04:53 Albumin 3.3 Gm/dL (Low)?? 07/16/2023 01:37 AG Ratio 0.9 ()?? 07/15/2023 04:53 Alkaline Phosphatase 150 units/L (High)?? 07/16/2023 01:37 AST (SGOT) 66 units/L (High)?? 07/16/2023 01:37 ALT (SGPT) 40 units/L ()?? 07/16/2023 01:37 Bilirubin, Total 1.6 mg/dL (High)?? 07/16/2023 01:37 Bilirubin, Direct 0.4 mg/dL (High)?? 07/16/2023 01:37 Bilirubin, Indirect 1.2 mg/dL (High)?? 07/16/2023 01:37 ?? HEME OTHER Hold Blue Top SPECIMEN DISCARDED AFTER 4 HOURS. ()?? 07/15/2023 04:52 ? MISC. CHEMISTRY Ammonia, Venous 120 ??mole/L (High)?? 07/16/2023 07:13 ? TOXICOLOGY/TDM Ethanol, Serum or Plasma NONE DETECTED mg/dL ()?? 07/15/2023 04:53 ? 35??minutes spent on discharge * Maryellen LEE, Eliel: PERFORM Event Display: Discharge/Transfer Note Hospital Authored Date: Patient failed physical therapy and therefore will require rehab, medically stable will be discharged to rehab once bed is available,??expected length of stay less than 30 days, patient currently is not??using any alcohol * Heidi Reeves: PERFORM, SIGN, VERIFY Event Display: Case Management Discharge Plan Authored Date: Patient: GEMA CABEZAS Age: 48 years Sex: Male : 1975 Associated Diagnoses: None Author: Heidi Reeves Discharge Plan Case Management Discharge Plan : Case Management Discharge Plan Data 07/16/2023 10:52 EST Discharge Level of Care at Discharge assisted facility (Modified) Discharge Nursing Homes/Rehab Facilities Formerly [facility] Discharge VNA/Hospice/Home Care In Error (In Error) Name of Agency #1 In Error (In Error) Service Categories #1 Physical Therapy, [facility] Service Comments #1 you are being discharged to rehab at [facility]. (Modified) Patient Care team information Care Team Personnel Name: Shira Galindo RN Position: [facility] RN Member Role: Primary Care Nurse Name: Lisa Nunez RN Position: [facility] RN Member Role: Primary Care Nurse Name: Alexandra Colmenares RN Position: [facility] [place] RN W/OE and Tasks Member Role: Primary Care Nurse Name: Garima Manzano RN Position: S RN Member Role: Primary Care Nurse Name: Malgorzata Marinelli RN Position: [facility] RN Member Role: Primary Care Nurse Name: Joyce Roach RN Position: [facility] ED RN W/OE and Tasks Member Role: Primary Care Nurse Name: Mary Suazo RN Position: [facility] RN Member Role: Primary Care Nurse Name: Lucina Peralta RN Position: [facility] RN Member Role: Primary Care Nurse Name: Maria Esther Craig LPN Position: [facility] RN Member Role: Primary Care Nurse Name: Andres Pressley RN Position: [facility] ED RN W/OE and Tasks Member Role: Primary Care Nurse Name: Jany Baig DO Position: [facility] Physician - Primary Care Member Role: PCP Address: Address: [address] [place] [address] Adult [facility] [place] [address]- Name: Kaye Payne RN [facility] Member Role: [employer] Consulting Provider Address: Address: [address] [place] [id number]- Name: Paige Nascimento RN Position: [facility] RN Member Role: Primary Care Nurse Name: Ge Covarrubias RN Position: [facility] RN Member Role: Primary Care Nurse Name: Orin Elmore RN Position: [facility] ED RN W/OE and Tasks Member Role: Primary Care Nurse Name: Allegra Liu RN Position: [facility] AMB Nurse Member Role: Primary Care Nurse Name: Shayan Pandya MD Position: [facility] Renal MD Member Role: Lifetime Consulting Physician Address: Address: [address] [facility] [place] [address]- Name: Kimberley Pittman RN Position: S RN Member Role: Primary Care Nurse Name: Darlene Rodrigez RN Position: S RN Member Role: Primary Care Nurse Name: Dixie Duke RN Position: S RN Member Role: Primary Care Nurse Name: Ingrid Verdugo RN Position: S RN Member Role: Primary Care Nurse Name: Monica Rowell RN Position: S RN Member Role: Primary Care Nurse Name: Jimi Fitzpatrick RN Position: [facility] RN Member Role: Primary Care Nurse Care Team Related Persons Name: MARLEN CABEZAS Address: home [address] [place] [id number] Name: MARLEN CABEZAS Address: home [address] [place] [address] Name: NICK CABEZAS Name: GEMA CABEZAS Address: home [address] [place] [id number]
--- OUTSIDE RECORDS SUMMARY | 2023-12-15 20:48 | XMS_ITS | Continuity of Care Document ---
Author Organization 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 [address] [place] [address]- Allergies, Adverse Reactions, Alerts Substance Reaction Severity [...] acel (oldterm) 08/02/12 Give n 1Result Comment: [facility]: 48358-851-07 2Result Comment: [04/29/2017] 97284-706-02 3Admin Note: FLUARIX 4Admin Note: 3 RDINJ 5Admin Note: #2 Medications acetaminophen 500 mg oral tablet 1 tablet, By Mouth, 4 times a day, PRN NEEDED FOR PAIN, MAX 4, PER DAY (VIAL., # 50 tablet, 11 Refills, Maintenance, 03/13/22 8:37:00 EDT, [facility], 175, cm, 01/06/22 10:34:00 EDT, Height, 78.3, kg, 12/26/21 19:05:00 EDT, Dry Weight Start Date: 03/13/22 Status: Ordered amLODIPine 5 mg oral tablet 5 mg, 1, tablet, By Mouth, Daily, # 30 tablet, Refills 5, Tot. Refills 5, Maintenance, 10/21/21 10:15:00 EDT, Route to Pharmacy Electronically, [facility], Partial fill upon patient request if the prescription is for a schedule II opioid drug.... Start Date: 10/21/21 Status: Ordered Co Q-10 100 mg oral capsule 1 capsule, By Mouth, 4 times a day, # 120 capsule, 5 Refills, Maintenance, 04/09/22 15:55:00 EDT, [facility], 175, cm, 04/09/22 15:34:00 EDT, Height, [...] Gm, 5 Refills, Maintenance, 02/18/22 10:02:00 EDT, [facility], 30, USE 1 SPRAY(S) INTO EACH NOSTRIL TWICE A DAY, 175, cm, 01/06/22 10:34:00 EDT, Height, 78.3, kg, 12/26/21 19... Start Date: 02/18/22 Status: Ordered folic acid 1 mg oral tablet 1 mg, 1, tablet, By Mouth, Daily, # 90 tablet, Refills 4, Tot. Refills 4, Maintenance, 10/27/21 10:40:00 EDT, Route to Pharmacy Electronically, [facility], Partial fill upon patient request if the prescription is for a schedule II opioid drug.... Start Date: 10/27/21 Stop Date: 01/20/23 Status: Ordered furosemide 20 mg oral tablet 1, tablet, By Mouth, Daily, note dose change, # 30 tablet, Refills 2, Tot. Refills 2, Maintenance, 04/09/22 15:53:00 EDT, Route to Pharmacy Electronically, [facility], 175, cm, 04/09/22 15:34:00 EDT, Height, 78.3, kg, 12/26/21 19:05:00 EDT, Start Date: 04/09/22 Stop Date: 07/08/22 Status: Ordered gabapentin 300 mg oral capsule 300 mg, 1, capsule, By Mouth, Daily at bedtime, note dose change, # 90 capsule, Refills 4, Tot. Refills 4, Maintenance, 04/09/22 15:53:00 EDT, Route to Pharmacy Electronically, [facility], Partial fill upon patient request if the prescription... Start Date: 04/09/22 Stop Date: 07/03/23 Status: Ordered hydrOXYzine hydrochloride 25 mg oral tablet 1 TO 2 TABLETS, By Mouth, 3 times a day, PRN NEEDED FOR ANXIETY (VIAL), # 60 tablet, 11 Refills,Maintenance, 03/13/22 8:38:00 EDT, [facility], 175, cm, 01/06/22 10:34:00 EDT, Height, 78.3, kg, 12/26/21 19:05:00 EDT, Dry Weight Start Date: 03/13/22 Status: Ordered lactulose 10 gm/15 ml oral syrup See Instructions, TAKE 30ML BY MOUTH THREE TIMES DAILY NEEDED TO ACHEIVE 3-4 BOWL MOVEMENTS PER DAY, # 3,000 mL, 10 [facility]ills[facility], 30, TAKE 30ML BY MOUTH THREE TIMES DAILY NEEDED TO ACHEIVE 3-4 BOWL MOVEMENTS PER DAY, 174, cm, 02/12... Start Date: 07/02/21 Status: Ordered lidocaine 0.5% topical gel 1 application, Topically, 3 times a day, # 120 Gm, 0 Refills, Acute 12/30/22 17:23:00 EDT, 12/30/2216:23:00 EDT, Gel[facility], Partial fill upon patient request if the prescription is fora schedule II opioid drug., 1 application Topically... Start Date: 12/30/21 Stop Date: 12/30/22 Status: Ordered Lidoderm 5% film 1 patch, Topically, Daily, remove patches after 12 hours NSAIDS contraindicated High dose tylenol contraindicated, # 30 patch, 5 Refills, Maintenance, 12/26/21 9:33:00 EDT, [facility], Partial fill upon patient request if the prescription i... Start Date: 12/26/21 Status: Ordered magnesium oxide 400 mg oral tablet 1 tablet, By Mouth, 2 times a day, # 60 tablet, 11 Refills, Maintenance, 03/13/22 8:37:00 EDT, [facility], 175, cm, 01/06/22 10:34:00 EDT, Height, [...] 04/09/22 16:00:00 EDT, Route to Pharmacy Electronically, [facility], Partial fill upon patient requestif the prescription is for a schedule II opioid remedios... Start Date: 04/09/22 Stop Date: 10/06/22 Status: Ordered Potassium Chloride (Eqv-K-Tab) 20 mEq oral tablet, extended release 2 tablet, By Mouth, Daily, # 60 tablet, 1 Refills, Maintenance, 03/13/22 12:37:00 EDT, [id number], 175, cm, 01/06/22 10:34:00 EDT, Height, 78.3, kg, 12/26/21 19:05:00 EDT, Dry Weight Start Date: 03/13/22 Status: Ordered pyridoxine 50 mg oral tablet 50 mg, 1, tablet, By Mouth, Daily, for 90 days, # 90 tablet, Refills 4, Tot. Refills 4, Acute 01/15/23 11:42:00 EDT, 10/22/21 11:42:00 EDT, Route to Pharmacy Electronically, [facility], Partial fill upon patient [...] 03/12/22 17:21:00 EDT, Tablet, [facility]/pharmacy #[id number], Partial fill upon patient request [...] [facility], 175,cm, 01/06/22 10:34:00 EDT, Height, 78.3, kg, ... Start Date: 01/30/22 Status: Ordered traZODone 50 mg oral tablet See Instructions, TAKE 2-3 TABLETS BY MOUTH AT BEDTIME (ONE DOSE IN VIAL), # 90 tablet, Refills 5, Tot. Refills 5, Maintenance, 12/26/21 9:21:00 EDT, Instructions Replace Required Details, Route to Pharmacy Electronically, [facility], 170, cm,... Start Date: 12/26/21 Status: Ordered Vitamin B1 100 mg oral tablet 1, tablet, By Mouth, Daily, # 90 tablet, Refills 3, Maintenance, 03/13/22 8:37:00 EDT, Route to Pharmacy Electronically, [facility], 175, cm, 01/06/22 10:34:00 EDT, Height, 78.3, kg, 12/26/2218:05:00 EDT, Dry Weight Start Date: 03/13/22 Status: Ordered Xifaxan 550 mg oral tablet 1 tablet, By Mouth, 2 times a day, # 60 tablet, 1 Refills, Maintenance, 04/10/22 16:49:00 EDT, [facility], 175, cm, 04/09/22 15:34:00 EDT, Height, [...] Personnel Name: Jany Baig DO Address: Address: [address] [place] [address] Adult & Pediatric Medicine [place], [place] [address]
--- OUTSIDE RECORDS SUMMARY | 2023-12-15 20:48 | XMS_ITS | Continuity of Care Document ---
Author Organization 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 [address] [place], [place] [address] Attending Physician: Jany [...] mRNA-1273 vaccine 04/08/21 R ecorded SARS-CoV-2 (COVID-19) mRNA-3566 vaccine 03/10/21 R ecorded hepatitis B adult [...] n 1Result Comment: [facility]: [id number] 2Result Comment: [04/29/2017] [id number] 3Admin Note: FLUARIX 4Admin Note: 3 RDINJ 5Admin Note: #2 Medications acetaminophen 500 mg oral tablet 1 tablet, By Mouth, 4 times a day, PRN NEEDED FOR PAIN, MAX 4, PER DAY (VIAL., # 50 tablet, 11 Refills, Maintenance, 03/13/22 8:37:00 EDT, [email or web address], 175, cm, 01/06/22 10:34:00 EDT, Height, 78.3, kg, 12/26/21 19:05:00 EDT, Dry Weight Start Date: 03/13/22 Status: Ordered amLODIPine 5 mg oral tablet 5 mg, 1, tablet, By Mouth, Daily, # 30 tablet, Refills 5, Tot. Refills 5, Maintenance, 10/21/21 10:15:00 EDT, Route to Pharmacy Electronically, [email or web address], Partial fill upon patient request if the prescription is for a schedule II opioid drug.... Start Date: 10/21/21 Status: Ordered Co Q-10 100 mg oral capsule 1 capsule, By Mouth, 4 times a day, # 120 capsule, 5 Refills, Maintenance, 04/09/22 15:55:00 ED[facility], [facility], cm, 04/09/22 15:34:00 EDT, Height, [...] Gm, 5 Refills, Maintenance, 02/18/22 10:02:00 EDT, [facility], 30, USE 1 SPRAY(S) INTO EACH NOSTRIL TWICE A DAY, 175, cm, 01/06/22 10:34:00 EDT, Height, 78.3, kg, 12/26/21 19... Start Date: 02/18/22 Status: Ordered folic acid 1 mg oral tablet 1 mg, 1, tablet, By Mouth, Daily, # 90 tablet, Refills 4, Tot. Refills 4, Maintenance, 10/27/21 10:40:00 EDT, Route to Pharmacy Electronically, [email or web address], Partial fill upon patient request if the prescription is for a schedule II opioid drug.... Start Date: 10/27/21 Stop Date: 01/20/23 Status: Ordered furosemide 20 mg oral tablet 1, tablet, By Mouth, Daily, note dose change, # 30 tablet, Refills 2, Tot. Refills 2, Maintenance, 04/09/22 15:53:00 EDT, Route to Pharmacy Electronically, [email or web address], 175, cm, 04/09/22 15:34:00 EDT, Height, 78.3, kg, 12/26/21 19:05:00 EDT, Start Date: 04/09/22 Stop Date: 07/08/22 Status: Ordered gabapentin 300 mg oral capsule 300 mg, 1, capsule, By Mouth, Daily at bedtime, note dose change, # 90 capsule, Refills 4, Tot. Refills 4, Maintenance, 04/09/22 15:53:00 EDT, Route to Pharmacy Electronically, [email or web address], Partial fill upon patient request if the prescription... Start Date: 04/09/22 Stop Date: 07/03/23 Status: Ordered hydrOXYzine hydrochloride 25 mg oral tablet 1 TO 2 TABLETS, By Mouth, 3 times a day, PRN NEEDED FOR ANXIETY (VIAL), # 60 tablet, 11 Refills,Maintenance, 03/13/22 8:38:00 EDT, [email or web address], 175, cm, 01/06/22 10:34:00 EDT, Height, 78.3, kg, 12/26/21 19:05:00 EDT, Dry Weight Start Date: 03/13/22 Status: Ordered lactulose 10 gm/15 ml oral syrup See Instructions, TAKE 30ML BY MOUTH THREE TIMES DAILY NEEDED TO ACHEIVE 3-4 BOWL MOVEMENTS PER DAY, # 3,000 mL, 10 Refills, [email or web address], 30, TAKE 30ML BY MOUTH THREE TIMES DAILY NEEDED TO ACHEIVE 3-4 BOWL MOVEMENTS PER DAY, 174, cm, 02/12... Start Date: 07/02/21 Status: Ordered lidocaine 0.5% topical gel 1 application, Topically, 3 times a day, # 120 Gm, 0 Refills, Acute 12/30/22 17:23:00 EDT, 12/30/2216:23:00 EDT, Gel, [email or web address], Partial fill upon patient request if the prescription is fora schedule II opioid drug., 1 application Topically... Start Date: 12/30/21 Stop Date: 12/30/22 Status: Ordered Lidoderm 5% film 1 patch, Topically, Daily, remove patches after 12 hours NSAIDS contraindicated High dose tylenol contraindicated, # 30 patch, 5 Refills, Maintenance, 12/26/21 9:33:00 EDT, [email or web address], Partial fill upon patient request if the prescription i... Start Date: 12/26/21 Status: Ordered magnesium oxide 400 mg oral tablet 1 tablet, By Mouth, 2 times a day, # 60 tablet, 11 Refills, Maintenance, 03/13/22 8:37:00 EDT, [email or web address], 175, cm, 01/06/22 10:34:00 EDT, Height, 78.3, kg, 12/26/21 19:05:00 EDT, Dry Weight Start Date: 03/13/22 Status: Ordered Melatonin 3 mg oral tablet 1 tablet, By Mouth, Daily at bedtime, PRN NEEDED FOR INSOMNIA (PACKAGE IN TRAY), # 60 tablet, 5 Refills, Maintenance, 06/02/21 16:17:00 EST, [facility], 28, 1 tablet By [...] 04/09/22 16:00:00 EDT, Route to Pharmacy Electronically, [facility], Partial fill upon patient requestif the prescription is for a schedule II opioid remedios... Start Date: 04/09/22 Stop Date: 10/06/22 Status: Ordered Potassium Chloride (Eqv-K-Tab) 20 mEq oral tablet, extended release 2 tablet, By Mouth, Daily, # 60 tablet, 1 Refills, Maintenance, 03/13/22 12:37:00 EDT, [id number], 175, cm, 01/06/22 10:34:00 EDT, Height, 78.3, kg, 12/26/21 19:05:00 EDT, Dry Weight Start Date: 03/13/22 Status: Ordered pyridoxine 50 mg oral tablet 50 mg, 1, tablet, By Mouth, Daily, for 90 days, # 90 tablet, Refills 4, Tot. Refills 4, Acute 01/15/23 11:42:00 EDT, 10/22/21 11:42:00 EDT, Route to Pharmacy Electronically, [facility], Partial fill upon patient [...] Maintenance, 03/12/22 17:21:00 EDT, Tablet, [facility]/pharmacy #[id number], Partial fill upon patient request if the prescription is for a schedule II opioid drug., 175, cm,... Start Date: 03/12/22 Status: Ordered Tab-A-Jesse oral tablet 1 tablet, By Mouth, Daily, # 90 tablet, 9 Refills, [facility], 28, TAKE 1 TABLET [...] [facility], 175,cm, 01/06/22 10:34:00 EDT, Height, 78.3, kg, ... Start Date: 01/30/22 Status: Ordered traZODone 50 mg oral tablet See Instructions, TAKE 2-3 TABLETS BY MOUTH AT BEDTIME (ONE DOSE IN VIAL), # 90 tablet, Refills 5, Tot. Refills 5, Maintenance, 12/26/21 9:21:00 EDT, Instructions Replace Required Details, Route to Pharmacy Electronically, [facility], 170, cm,... Start Date: 12/26/21 Status: Ordered Vitamin B1 100 mg oral tablet 1, tablet, By Mouth, Daily, # 90 tablet, Refills 3, Maintenance, 03/13/22 8:37:00 EDT, Route to Pharmacy Electronically, [facility], 175, cm, 01/06/22 10:34:00 EDT, Height, 78.3, kg, 12/26/2218:05:00 EDT, Dry Weight Start Date: 03/13/22 Status: Ordered Xifaxan 550 mg oral tablet 1 tablet, By Mouth, 2 times a day, # 60 tablet, 1 Refills, Maintenance, 04/10/22 16:49:00 EDT, [facility], 175, cm, 04/09/22 15:34:00 [...] oldest [Reference Range]: 1 Height 175 cm (04/09/22 3:34 PM) Weight 81.6 kg (04/09/22 3:34 PM) Oxygen Saturation [94-100 %] 97 % (04/09/22 3:34 PM) Pulse Rate [55-90 bpm] 86 bpm (04/09/22 3:34 PM) Body Mass Index [18.5-24.99 kg/m2] 26.64 kg/m2 *H* (04/09/22 3:34 PM) Blood Pressure [90-138/55-84 mm Hg] 122/ 78mm Hg (04/09/22 3:34 PM) Respiratory Rate [16-30 br/min] 16 br/mi n (04/09/22 3:34 PM) Temperature [96.8-100.4 DegF] 97.7 DegF (04/09/22 3:34 PM) Mode of Delivery (Oxygen) Room air (04/09/22 3:34 PM) Temperature Route Temporal (04/09/22 3:34 PM) Weight Obtained Via Standing scale (04/09/22 3:34 PM) Social History Social History Type Response Smoking Status 10 or more cigarette s (1/2 pack or more)/day in last 30 days entered on: 02/04/19 Sex Patient Care team information Personnel Name: Jany Baig DO Address: Address: [address] [place] [address] Adult & Pediatric Medicine [place], [place] [address]
--- OUTSIDE RECORDS SUMMARY | 2023-12-15 20:48 | XMS_ITS | Continuity of Care Document ---
Author Organization [facility] ter Address [address] [place] [id number] Care Team Providers Care Database Report Writer Name Role Phone Jany Baig DO Primary Care Physician [place] [facility] [place]21[place]22 - 10/24/[address] [address]- Encounter Diagnosis Altered mental state(Final) - 10/21/22 Discharge Disposition: A-D/C Home Attending Physician: Jason Ross MD Admitting Physician: Marla Dawkins DO Referring Physician: Not on Staff, Referring [...] 1Result Comment: [facility]: [id number] 2Result Comment: [04/29/2017] [id number] 3Admin Note: FLUARIX 4Admin Note: 3 RDINJ 5Admin Note: #2 Medications acamprosate 333 mg oral delayed release tablet 1 tablet = 333 mg, By Mouth, 3 times a day, # 42 tablet, 4 Refills, Maintenance, 10/24/22 9:53:00 EDT, EC Tablet, [facility], Partial fill upon patient request if the prescription is for a schedule II opioid drug., 175, cm, 10/21/22 20:41:00 E... Start Date: 10/24/22 Stop Date: 01/02/23 Status: Ordered amLODIPine 5 mg oral tablet 5 mg, Tablet, By Mouth, 10/24/22 9:00:00 EDT Start Date: 10/24/22 Stop Date: 10/24/22 Status: Completed amLODIPine 5 mg oral tablet 1 tablet, By Mouth, Daily, ^1R1., # 30 tablet, 2 Refills, Maintenance, 10/06/22 4:58:00 EDT, [facility], 176, cm, 09/07/22 8:56:00 EDT, Height, 82.1, kg, 09/07/22 8:59:00 EDT, Dry Weight Start Date: 10/06/22 Status: Ordered baclofen 10 mg oral tablet See Instructions, TAKE 1 TABLET BY MOUTH THREE TIMES DAILY, # 90 tablet, Refills 0, Maintenance, 08/07/22 12:26:00 EST, Instructions Replace Required Details, Route to Pharmacy Electronically, [facility], 176, cm, 08/07/22 11:37:00 EST, Height... Start Date: 08/07/22 Status: Ordered calcium (as carbonate)-vitamin D 500 mg-400 intl units oral tablet 1 tablet, By Mouth, Daily, ^1R1., # 28 tablet, 0 Refills, Maintenance, 10/08/22 16:58:00 EDT, [facility], 28, TAKE ONE TABLET BY MOUTH EVERY DAY ^1R1, 176, cm, 09/07/22 8:56:00 EDT, Height, 82.1, kg, 09/07/22 8:59:00 EDT, Dry Weight Start Date: 10/08/22 Status: Ordered Co Q-10 100 mg oral capsule See Instructions, TAKE 1 CAPSULE BY MOUTH FOUR TIMES DAILY, # 120 capsule, 6 Refills, Maintenance, 08/07/22 12:13:00 EST, [facility], 176, cm, 08/07/22 11:37:00 EST, [...] Refills, Maintenance, 08/07/22 12:12:00 EST, [facility]/pharmacy #[id number], 30, USE 1 SPRAY(S) INTO EACH NOSTRIL TWICE A DAY, 176, cm,08/07/22 11:37:00 EST, Height, 79.8, kg, 07/31/22 2... Start Date: 08/07/22 Status: Ordered folic acid 1 mg oral tablet 1, tablet, By Mouth, Daily, R1., # 30 tablet, Refills 5, Tot. Refills 5, Maintenance, 10/06/22 4:59:00 EDT, Route to Pharmacy Electronically, [facility], 176, cm, 09/07/22 8:56:00 EDT, Height, [...] 09/03/22 14:50:00 EDT, Route to Pharmacy Electronically, [facility], 169, cm, 09/03/22 14:21:00 EDT, Height, 69, kg, 08/16/22 1:04:00 EST, Dry Weight Start Date: 09/03/22 Status: Ordered gabapentin 300 mg oral capsule 300 mg, 1, capsule, By Mouth, 2 times a day, note dose/frequency change, # 180 capsule, Refills 4, Tot. Refills 4, Maintenance, 09/03/22 14:55:00 EDT, Route to Pharmacy Electronically, [facility], 169, cm, 09/03/22 14:21:00 EDT, Height, 69, kg... Start Date: 09/03/22 Stop Date: 11/27/23 Status: Ordered hydrOXYzine hydrochloride 10 mg oral tablet 2 tablet, By Mouth, 2 times a day, PRN NEEDED FOR ANXIETY (VIAL), # 30 tablet, 3 Refills, Maintenance, 09/24/22 17:01:00 EDT, [facility], 176, cm, 09/07/22 8:56:00 EDT, Height, 82.1, kg, 09/07/22 8:59:00 EDT, Dry Weight Start Date: 09/24/22 Status: Ordered lactulose 10 gm/15 ml oral syrup 15 mL, By Mouth, 2 times a day, # 120 mL, 6 Refills, Maintenance, 09/22/22 12:15:00 EDT, [facility], 4, TAKE 15ML BY MOUTH TWO TIMES A DAY, 176, cm, 09/07/22 8:56:00 EDT, Height, 82.1, kg, 09/07/22 8:59:00 EDT, Dry Weight Start Date: 09/22/22 Status: Ordered Lidoderm 5% film 1 patch, Topically, Daily, remove patches after 12 hours NSAIDS contraindicated High dose tylenol contraindicated remove patches after 12 hours Nueropathy, # 30 patch, 5 Refills, Maintenance, 09/03/22 16:34:00 EDT, [facility], Partial klaudia... Start Date: 09/03/22 Status: Ordered Melatonin 3 mg oral tablet 1 tablet, By Mouth, Daily at bedtime, PRN NEEDED FOR INSOMNIA (PACKAGE IN TRAY)^1R4, # 60 tablet, 5 Refills, Maintenance, 06/12/22 18:11:00 EST, [facility], 60, TAKE 1 TABLET BY MOUTH [...] 09/03/22 14:53:00 EDT, Route to Pharmacy Electronically, [facility], Partial fill upon patient request if the prescription is for a schedule II opioid drug... Start Date: 09/03/22 Stop Date: 03/02/23 Status: Ordered pyridoxine 50 mg oral tablet 50 mg, 1, tablet, By Mouth, Daily, for 90 days, # 90 tablet, Refills 4, Tot. Refills 4, Acute 01/15/23 11:42:00 EDT, 10/22/21 11:42:00 EDT, [facility], Partial fill upon patient request if [...] 10/24/22 9:56:00 EDT, Route to Pharmacy Electronically, [facility], Partial fill upon patient request if the prescription is for a schedule II opioid drug.... Start Date: 10/24/22 Status: Ordered Tab-A-Jesse oral tablet 1 tablet, By Mouth, Daily, # 90 tablet, 9 Refills, 08/07/22 12:27:00 EST, [facility]/pharmacy #[id number], 28, 1tablet By Mouth Daily, 176, cm, 08/07/22 11:37:00 EST, Height, 79.8, kg, 07/31/22 22:40:00 EST, DryWeight Start Date: 08/07/22 Status: Ordered traZODone 50 mg oral tablet 2 tablets, By Mouth, Daily at bedtime, # 60 each, Refills 5, Tot. Refills 5, Maintenance, 09/03/22 17:13:00 EDT, Route to Pharmacy Electronically, [facility], 169, cm, 09/03/22 14:21:00 EDT, Height, 69, kg, 08/16/22 1:04:00 EST, Dry Weight Start Date: 09/03/22 Status: Ordered Vitamin B1 100 mg oral tablet 1, tablet, By Mouth, Daily, # 90 tablet, Refills 3, Maintenance, 03/13/22 8:37:00 EDT, Route to Pharmacy Electronically, [facility], 175, cm, 01/06/22 10:34:00 EDT, Height, [...] tablet, 3 Refills, Maintenance, 10/01/22 15:19:00 EDT, [facility], 176, cm, 09/07/22 8:56:00 EDT, Height, [...] 9legally blind;hereditary 10normal echo November 2014 Results Orders for Microbiology Reports Name Date Blood Culture 10/21/22 Blood Culture #2 10/21/22 Microbiology Reports TEST:Blood Culture STATUS:Unauthenticated BODY SITE: SOURCE:Blood COLLECTED DATE/TIME:10/21/22 2:20 PM Blood Culture SPECIMEN DESCRIPTION : BLOOD NO SITE SPECIAL REQUESTS : NONE CULTURE : NO GROWTH 3 DAYS REPORT STATUS : PRELIMINARY REPORT TEST:Blood Culture, Second Order STATUS:Unauthenticated BODY SITE: SOURCE:Blood COLLECTED DATE/TIME:10/21/22 2:20 PM Blood Culture, Second Order SPECIMEN DESCRIPTION : BLOOD NO SITE SPECIAL REQUESTS : NONE CULTURE : NO GROWTH 3 DAYS REPORT STATUS : PRELIMINARY REPORT Radiology Reports * Exam Date Time Procedure Performing Provider Status 10/21/22 2:[address] Maxilloface W/O Contrast Yen Jules; Auth (Verified) Notes: (CT Maxilloface W/O Contrast) Reason For Exam: Trauma RESULT: CT Maxilloface W/O Contrast CT Head/Brain W/O Contrast, CT Cervical Spine W/O Contrast, CT Maxilloface W/O Contrast INDICATION: Found down. Head face and neck injury. History of prior intracranial hemorrhage.. COMPARISON: 10/01/2022, 09/16/2019 09/08/2019 TECHNIQUE: Incremental CT scan through the head and spiral CT through the face and cervical spine without contrast, formatted in multiple planes. Images were also reconstructed on-the-fly using the PACS multiplanar reconstruction tool The cervical and facial portions of the exam were performed withautomatic exposure control. FINDINGS: HEAD: BRAIN:No parenchymal hemorrhage or swelling. Unchanged small bilateral medial temporal cortical defects. No evidence of infarct. Negative insular ribbon and hyperdense vessel signs. Unchanged moderate atrophy pattern of the sulci. EXTRA-AXIAL SPACES: Resolved subdural hemorrhages. No new extra-axial hemorrhage. BASILAR CISTERNS:Normal. CALVARIUM, SKULL BASE AND SOFT TISSUES:No bone lesions or fractures. Unremarkable soft tissues. CERVICAL SPINE: CERVICO-OCCIPITAL JUNCTION: Intact. ODONTOID PROCESS and C1/2 ARTICULATION: Intact. SPINE: No fracture or malalignment. OTHER BONES: Healing upper rib and right C7 transverse process fractures. SOFT TISSUES AND LUNG APICES: Normal. No hematoma or pneumothorax. MAXILLOFACIAL: Paranasal sinuses: Clear. Nasal bones: Normal. Zygomatic arches: Normal. Pterygoid plates. Normal. Maxilla: Normal. Mandible: Normal. Orbits: Normal. IMPRESSION: No acute abnormality of the head, face or cervical spine. WSN: [id number] Ordering Physician: Livier Falk Dictated By: Jimenez Martinez MD Dictated Date/Time: 10/21/22 3:31 pm Reviewed By: Jimenez Martinez MD Signed By: Jimenez Martinez MD Signed Date/Time: 10/21/22 3:31 pm Transcribed By: MIRNA Transcribed Date/Time: 10/21/22 3:14 pm * Exam Date Time Procedure Performing Provider Status 10/21/22 2:[address] Cervical Spine W/O Contrast Yen Arechiga; Tanna (Verified) Notes: (CT Cervical Spine W/O Contrast) Reason For Exam: Neck trauma, dangerous injury mechanism;Other: RESULT: CT Cervical Spine W/O Contrast CT Head/Brain W/O Contrast, CT Cervical Spine W/O Contrast, CT Maxilloface W/O Contrast INDICATION: Found down. Head face and neck injury. History of prior intracranial hemorrhage.. COMPARISON: 10/01/2022, 09/16/2019 09/08/2019 TECHNIQUE: Incremental CT scan through the head and spiral CT through the face and cervical spine without contrast, formatted in multiple planes. Images were also reconstructed on-the-fly using the PACS multiplanar reconstruction tool The cervical and facial portions of the exam were performed withautomatic exposure control. FINDINGS: HEAD: BRAIN:No parenchymal hemorrhage or swelling. Unchanged small bilateral medial temporal cortical defects. No evidence of infarct. Negative insular ribbon and hyperdense vessel signs. Unchanged moderate atrophy pattern of the sulci. EXTRA-AXIAL SPACES: Resolved subdural hemorrhages. No new extra-axial hemorrhage. BASILAR CISTERNS:Normal. CALVARIUM, SKULL BASE AND SOFT TISSUES:No bone lesions or fractures. Unremarkable soft tissues. CERVICAL SPINE: CERVICO-OCCIPITAL JUNCTION: Intact. ODONTOID PROCESS and C1/2 ARTICULATION: Intact. SPINE: No fracture or malalignment. OTHER BONES: Healing upper rib and right C7 transverse process fractures. SOFT TISSUES AND LUNG APICES: Normal. No hematoma or pneumothorax. MAXILLOFACIAL: Paranasal sinuses: Clear. Nasal bones: Normal. Zygomatic arches: Normal. Pterygoid plates. Normal. Maxilla: Normal. Mandible: Normal. Orbits: Normal. IMPRESSION: No acute abnormality of the head, face or cervical spine. WSN: [id number] Ordering Physician: Livier Falk Dictated By: Jimenez Martinez MD Dictated Date/Time: 10/21/22 3:31 pm Reviewed By: Jimenez Martinez MD Signed By: Jimenez Martinez MD Signed Date/Time: 10/21/22 3:31 pm Transcribed By: MIRNA Transcribed Date/Time: 10/21/22 3:14 pm * Exam Date Time Procedure Performing Provider Status 10/21/22 2:[address] Head/Brain W/O Contrast Yen Jules; Tanna (Verified) Notes: (CT Head/Brain W/O Contrast) Reason For Exam: Trauma RESULT: CT Head/Brain W/O Contrast CT Head/Brain W/O Contrast, CT Cervical Spine W/O Contrast, CT Maxilloface W/O Contrast INDICATION: Found down. Head face and neck injury. History of prior intracranial hemorrhage.. COMPARISON: 10/01/2022, 09/16/2019 09/08/2019 TECHNIQUE: Incremental CT scan through the head and spiral CT through the face and cervical spine without contrast, formatted in multiple planes. Images were also reconstructed on-the-fly using the PACS multiplanar reconstruction tool The cervical and facial portions of the exam were performed withautomatic exposure control. FINDINGS: HEAD: BRAIN:No parenchymal hemorrhage or swelling. Unchanged small bilateral medial temporal cortical defects. No evidence of infarct. Negative insular ribbon and hyperdense vessel signs. Unchanged moderate atrophy pattern of the sulci. EXTRA-AXIAL SPACES: Resolved subdural hemorrhages. No new extra-axial hemorrhage. BASILAR CISTERNS:Normal. CALVARIUM, SKULL BASE AND SOFT TISSUES:No bone lesions or fractures. Unremarkable soft tissues. CERVICAL SPINE: CERVICO-OCCIPITAL JUNCTION: Intact. ODONTOID PROCESS and C1/2 ARTICULATION: Intact. SPINE: No fracture or malalignment. OTHER BONES: Healing upper rib and right C7 transverse process fractures. SOFT TISSUES AND LUNG APICES: Normal. No hematoma or pneumothorax. MAXILLOFACIAL: Paranasal sinuses: Clear. Nasal bones: Normal. Zygomatic arches: Normal. Pterygoid plates. Normal. Maxilla: Normal. Mandible: Normal. Orbits: Normal. IMPRESSION: No acute abnormality of the head, face or cervical spine. WSN: [id number] Ordering Physician: Livier Falk Dictated By: Jimenez Martinez MD Dictated Date/Time: 10/21/22 3:31 pm Reviewed By: Jimenez Martinez MD Signed By: Jimenez Martinez MD Signed Date/Time: 10/21/22 3:31 pm Transcribed By: MIRNA Transcribed Date/Time: 10/21/22 3:14 pm * Exam Date Time Procedure Performing Provider Status 10/21/22 2:[address] Abd/Pelvis W/ IV Contrast Only Yen Jules; Auth (Verified) Notes: (CT Abd/Pelvis W/ IV Contrast Only) Reason For Exam: Abd trauma, blunt;Other: RESULT: CT Abd/Pelvis W/ IV Contrast Only CT Chest W/ Contrast, CT Abd/Pelvis W/ IV Contrast Only INDICATION: Found down. Possible blunt injury. History portal cirrhosis and portal hypertension. Mild abdominal tenderness and left upper quadrant bruising. TECHNIQUE: Helical CT scan of the chest, abdomen, and pelvis with IV contrast, formatted in 3 planes. 100 cc of Omnipaque 300 was administered intravenously. This study was performed without oral contrast. Weight-based protocol was performed using automatic exposure control. COMPARISON: 07/14/2022 FINDINGS: Dean Of Faculty view findings, lines and tubes: Lee catheter in place. Trachea and airways: Patent without evidence of tracheal or endobronchial lesion. Lungs and pleura: Clear. No effusion or pneumothorax. Mediastinum and daisy: No mass or hematoma. No mediastinal or hilar lymphadenopathy. No esophageal abnormality. Normal thyroid. Heart: Heart is normal in size. No pericardial effusion. No coronary arterial calcifications. Aorta: No aortic aneurysm. Pulmonary arteries: Normal caliber. No evidence of pulmonary embolism on this study performed without angiographic technique. Diaphragm: Intact. Liver: Cirrhotic morphology. Status post TIPS. No evidence of suspicious mass Gallbladder: Dilated gallbladder up to 5.6 cm. Small stone visualized within the lumen, unchanged from prior exam. No surrounding inflammation or evidence of wall thickening. Bile ducts: Mildly prominent common bile duct measuring 0.7 cm (series 208: Image 54), increased from prior exam. Spleen: Splenomegaly measuring up to 15.1 cm (series 207: Image 81)., increased from prior exam, previously measuring up to 14.1 cm. Pancreas: No suspicious lesion or ductal dilatation. Adrenal glands: No nodule. Kidneys and ureters: No hydronephrosis, stone, or suspicious lesion. Simple appearing renal cysts and hypodensities that are too small to characterize are noted, requiring no dedicated follow up. Bladder: Decompressed, with Lee catheter in place, limiting evaluation. No gross abnormality. Reproductive organs: Unremarkable. Stomach, small bowel, and large bowel: Normal caliber stomach and bowel loops. No surrounding inflammatory changes. Appendix: Not seen, but no evidence of acute appendicitis. Peritoneum and retroperitoneum: No ascites or pneumoperitoneum. No omental or mesenteric lesions. Lymph nodes: No enlarged lymph nodes. Blood vessels: Mild vascular calcifications but no aneurysm. No evidence of venous thrombosis. Embolization coils within the epigastric region. Chest, abdomen and pelvic wall soft tissues: * Mild fat stranding/fluid within the subcutaneous tissues of the lower left anterior iliac crest (series 201: Image 155), with mild involvement of the adjacent musculature. * Resolved intramuscular fluid collection of the right gluteus teresita muscle. Mild residual fat stranding is within the adjacent subcutaneous tissues is present. * Small bilateral inguinal and umbilical hernias. * Mild bilateral gynecomastia. Bones: * No acute abnormality. * Old healed/healing bilateral rib and left clavicle fractures. 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 Stable hardware. IMPRESSION: 1. Deep bruising over the left anterior superior iliac spine. 2. No other acute bony or soft tissue injury. 3. Persistently dilated gallbladder with cholelithiasis but no convincing evidence of inflammation.Mildly dilated CBD at 7 mm. Correlate with labs and physical exam for acute cholecystitis. Considerfurther evaluation with right upper quadrant ultrasound. 4. Resolved right gluteal muscle collection. I have personally reviewed the images and I agree with this report. WSN: [id number] Ordering Physician: Livier Falk Dictated By: Tabatha Bear MD Dictated Date/Time: 10/21/22 3:54 pm Reviewed By: Jimenez Martinez MD Signed By: Jimenez Martinez MD Signed Date/Time: 10/21/22 3:59 pm Transcribed By: MIRNA Transcribed Date/Time: 10/21/22 3:36 pm * Exam Date Time Procedure Performing Provider Status 10/21/22 2:[address] Chest W/ Contrast Vandana Jules on; Auth (Verified) Notes: (CT Chest W/ Contrast) Reason For Exam: Chest trauma, blunt;Other: RESULT: CT Chest W/ Contrast CT Chest W/ Contrast, CT Abd/Pelvis W/ IV Contrast Only INDICATION: Found down. Possible blunt injury. History portal cirrhosis and portal hypertension. Mild abdominal tenderness and left upper quadrant bruising. TECHNIQUE: Helical CT scan of the chest, abdomen, and pelvis with IV contrast, formatted in 3 planes. 100 cc of Omnipaque 300 was administered intravenously. This study was performed without oral contrast. Weight-based protocol was performed using automatic exposure control. COMPARISON: 07/14/2022 FINDINGS: Dean Of [employer] view findings, lines and tubes: Lee catheter in place. Trachea and airways: Patent without evidence of tracheal or endobronchial lesion. Lungs and pleura: Clear. No effusion or pneumothorax. Mediastinum and daisy: No mass or hematoma. No mediastinal or hilar lymphadenopathy. No esophageal abnormality. Normal thyroid. Heart: Heart is normal in size. No pericardial effusion. No coronary arterial calcifications. Aorta: No aortic aneurysm. Pulmonary arteries: Normal caliber. No evidence of pulmonary embolism on this study performed without angiographic technique. Diaphragm: Intact. Liver: Cirrhotic morphology. Status post TIPS. No evidence of suspicious mass Gallbladder: Dilated gallbladder up to 5.6 cm. Small stone visualized within the lumen, unchanged from prior exam. No surrounding inflammation or evidence of wall thickening. Bile ducts: Mildly prominent common bile duct measuring 0.7 cm (series 208: Image 54), increased from prior exam. Spleen: Splenomegaly measuring up to 15.1 cm (series 207: Image 81)., increased from prior exam, previously measuring up to 14.1 cm. Pancreas: No suspicious lesion or ductal dilatation. Adrenal glands: No nodule. Kidneys and ureters: No hydronephrosis, stone, or suspicious lesion. Simple appearing renal cysts and hypodensities that are too small to characterize are noted, requiring no dedicated follow up. Bladder: Decompressed, with Lee catheter in place, limiting evaluation. No gross abnormality. Reproductive organs: Unremarkable. Stomach, small bowel, and large bowel: Normal caliber stomach and bowel loops. No surrounding inflammatory changes. Appendix: Not seen, but no evidence of acute appendicitis. Peritoneum and retroperitoneum: No ascites or pneumoperitoneum. No omental or mesenteric lesions. Lymph nodes: No enlarged lymph nodes. Blood vessels: Mild vascular calcifications but no aneurysm. No evidence of venous thrombosis. Embolization coils within the epigastric region. Chest, abdomen and pelvic wall soft tissues: * Mild fat stranding/fluid within the subcutaneous tissues of the lower left anterior iliac crest (series 201: Image 155), with mild involvement of the adjacent musculature. * Resolved intramuscular fluid collection of the right gluteus teresita muscle. Mild residual fat stranding is within the adjacent subcutaneous tissues is present. * Small bilateral inguinal and umbilical hernias. * Mild bilateral gynecomastia. Bones: * No acute abnormality. * Old healed/healing bilateral rib and left clavicle fractures. 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 Stable hardware. IMPRESSION: 1. Deep bruising over the left anterior superior iliac spine. 2. No other acute bony or soft tissue injury. 3. Persistently dilated gallbladder with cholelithiasis but no convincing evidence of inflammation.Mildly dilated CBD at 7 mm. Correlate with labs and physical exam for acute cholecystitis. Considerfurther evaluation with right upper quadrant ultrasound. 4. Resolved right gluteal muscle collection. I have personally reviewed the images and I agree with this report. WSN: [id number] Ordering Physician: Livier Falk Dictated By: Tabatha Bear MD Dictated Date/Time: 10/21/22 3:54 pm Reviewed By: Jimenez Martinez MD Signed By: Jimenez Martinez MD Signed Date/Time: 10/21/22 3:59 pm Transcribed By: MIRNA Transcribed Date/Time: 10/21/22 3:36 pm Vital Signs Most recent to oldest [Reference Range]: 1 2 3 Height 175 cm (10/21/22 8:41 PM) Weight 88.9 kg (10/21/22 8:41 PM) Oxygen Saturation [94-100 %] 98 % (10/24/22 8:00 AM) 95 % (10/24/22 6:00 AM) 91 % *L* (10/24/22 4:00 AM) Pulse Rate [55-90 bpm] 92 bpm *H* (10/24/22 4:00 AM) 95 bpm *H* (10/24/22 2:00 AM) 96 bpm *H* (10/23/22 11:55 PM) Body Mass Index [18.5-24.99 kg/m2] 29.03 kg/m2 *H* (10/21/22 8:41 PM) Blood Pressure [90-138/55-84 mm Hg] 149/84mm Hg *H* (10/24/22 9:58 AM) 131/83mm Hg (10/24/22 8:00 AM) 140/82mm Hg *H* (10/24/22 6:00 AM) Respiratory Rate [16-30 br/min] 15 br/min *L* (10/24/22 8:00 AM) 20 br/min (10/24/22 6:00 AM) 24 br/min (10/24/22 4:00 AM) Temperature [96.8-100.4 DegF] 98.9 DegF (10/24/22 6:00 AM) 99.0 DegF (10/24/22 2:00 AM) 99.1 DegF (10/23/22 10:00 PM) Liters per Minute 2 L/min (10/22/22 8:00 AM) 2 L/min (10/22/22 6:00 AM) 2 L/min (10/22/22 4:00 AM) Mode of Delivery (Oxygen) Room air (10/24/22 8:00 AM) Room air (10/24/22 6:00 AM) Room air (10/24/22 2:00 AM) Blood pressure sites Arm, right (10/24/22 8:00 AM) Arm, right (10/24/22 6:00 AM) Arm, right (10/24/22 4:00 AM) Temperature Route Oral (10/24/22 6:00 AM) Oral (10/24/22 2:00 AM) Oral (10/23/22 10:00 PM) Dry Weight 88.9 kg (10/21/22 8:41 PM) Weight Obtained Via Bed scale (10/21/22 8:41 PM) Dry Weight Obtained Via Bed scale (10/21/22 8:41 PM) Social History Social History Type Response Smoking Status 10 or more cigarette s (1/2 pack or more)/day in last 30 days entered on: 02/04/19 Sex History and physical note * Marla Dawkins DO S: MODIFY, MODIFY, MODIFY, PERFORM, MODIFY Event Display: History and Physical Hospital Authored Date: Patient: ??BILL BASSETT ? Age:??47 Years?Sex:??Male?:??1975?? Chief Complaint/Reason for Consultation fall History of Present Illness This is a 47-year-old male with past medical history including alcohol use disorder,??liver cirrhosis, varices status post TIPS,??and history of frequent falls, who currently presents to the hospital??with altered mental status.?? The patient reports that he has been falling a lot at home.?? EMS was reportedly called to the patient's home and he was found in bed covered in feces and urine.?? He was noted to be hypothermic as well.?? He reports that his last drink was yesterday.?? In the ED, hisvital signs were stable other than the hypothermia and mild tachycardia.?? Lab work showed the patient to have a white count of 4.7 with a hemoglobin of 12.4 and platelet count of 100.?? INR was 1.2 with a PT of 12.9.?? Patient's sodium was noted to be elevated at 150 with a chloride of 113 and a bicarb of 20.?? Kidney function was normal.?? LFT showed an alk phos of 216, lipase of 52, AST of 59,ALT of 32, and total bili of 1.8.?? Initial lactate was 6.1 and subsequently decreased to 4.4 and then 3.8.?? CRP was 0.6 with a sed rate of 11.?? TSH was 0.97 with a serum ethanol level of 344.?? Urine tox screen was positive for barbiturates.?? Ammonia level was 53.?? UA showed 1+ albumin with trace hemoglobin, no WBCs, and 4 RBCs.?? The patient had a head CT as well as maxillofacial and cervical spine CT, all of which showed no acute abnormality.?? A CT scan of the chest was also obtained that showed some deep bruising over the left anterior superior iliac spine with a dilated gallbladder with cholelithiasis but no convincing evidence of cholecystitis.?? Mildly dilated common bile duct was noted at 7 mm.?? The patient was placed on a Krysten hugger with gradual improvement of his temperatu re.?? He was given 1 dose of vancomycin in the ED.??the patient reports injuring his??right great toe??when it was caught in a door jam??this past Wednesday,??October 16. ??A right foot x-ray was ordered, but the patient declined??the study. ??He states that he would like to be discharged home, but as he is still??intoxicated, he is willing to stay??longer. ??He is now admitted for further management. Review of Systems A complete review of systems was obtained and noted to be negative except as stated above in the HPI. Objective Measurements?? Height: 175 cm (10/21/22) Weight: 88.9 kg (10/21/22) Dry Weight: 88.9 kg (10/21/22) Body Mass Index:??29.03 kg/m2??High (10/21/22) ? Vital Signs?? Temperature: 99.5 DegF (10/22/22 01:00:00) Temperature Route: Oral (10/22/22 01:00:00) Pulse Rate:??96 bpm??High (10/22/22 00:00:00) Respiratory Rate: 19 br/min (10/22/22 00:00:00) Systolic Blood Pressure: 138 mm Hg (10/22/22 00:00:00) Diastolic Blood Pressure: 79 mm Hg (10/22/22 00:00:00) Blood pressure sites: Arm, left (10/22/22 00:00:00) Mean Arterial Pressure: 114 mm Hg (10/21/22 20:41:00) Pulse Pressure: 59 mm Hg (10/22/22 00:00:00) Oxygen Saturation: 98 % (10/22/22 00:00:00) Liters per Minute: 2 L/min (10/21/22 18:45:00) Mode of Delivery (Oxygen): Room air (10/22/22 00:00:00) Early Warning Score: 9 (10/22/22 01:07:51) ? Physical Exam General: Alert, in no acute cardiopulmonary distress. Mental Status: Oriented to person, place and time. Normal affect. Head: Normocephalic.?? Left periorbital ecchymosis Eyes: Pupils are equal, round and reactive to light. Extraocular muscles intact. Ear, Nose and Throat: Oropharynx clear, mucous membranes moist. Ears and nose without masses, lesions or deformities. Trachea midline. Neck: Supple, Full range of motion. Respiratory: Clear to auscultation and percussion. No wheezing, rales or rhonchi. Cardiovascular: Heart sounds normal. Regular rate and rhythm, no murmurs, rubs or gallops. Gastrointestinal: Abdomen soft, non-tender, non-distended. Normal bowel sounds. No pulsatile mass. No hepatosplenomegaly. Neurologic: Cranial nerves II-XII grossly intact. No focal neurological deficits. Moves all extremities spontaneously. Sensation intact bilaterally. Skin: Left knee superficial abrasion. No petechiae or purpura. ??Right great toe??swelling and??mild erythema with??superficial abrasion. Musculoskeletal: No cyanosis or clubbing. No gross deformities. Normal range of motion. Assessment/Plan This is a 47-year-old male with??noted above, who presents??to the hospital??intoxicated.?? He reports??recent multiple falls. ?? Altered mental state ??(R41.82) Alcohol intoxication ??(F10.929) Hypothermia This patient will be admitted to an inpatient intermediate care bed.?? He presents with??altered mental status/alcohol intoxication.?? He was noted to be hypothermic here, raising possibility of??underlying infection.?? His white count is noted to be normal.?? Alcohol level was elevated.?? He was empirically treated with a dose of vancomycin in the ED, but we will hold off on further antibiotics presently.?? Urine analysis was obtained in the ED and is??fairly unremarkable.?? Blood cultures were obtained and we will follow for any growth.?? The patient has shown improvement of his mental status during his time in the ED, and we will continue to monitor.?? We will place him on a [facility] protocol with an event in case he??goes through alcohol withdrawal. ?? Esophageal varices status post TIPS. History of liver cirrhosis, presumably alcohol related Thrombocytopenia Patient??is maintained on??Lasix reportedly, as well as??lactulose??and rifaximin.?? We will hold his Lasix for now??in setting of his hyponatremia, but we will continue??the lactulose and rifaximin.?? He denies any hematochezia, melena, or??hematemesis. ??He did have some dried blood noted in his mouth,??but states that??this is??a cut on his lips. ?? Hypernatremia. Patient noted to have hypernatremia.?? He is on diuretic treatment which we will hold. ??We will hydrate him with IV fluids and follow-up??this. ?? Anxiety and depression. Continue patient on his home??paroxetine. ?? Hypertension. We will continue patient on amlodipine. ?? CODE STATUS. ??Patient is a full code. ?? DVT prophylaxis. In the setting of this patient's thrombocytopenia??and history of esophageal varices, we will??avoid pharmacological DVT prophylaxis presently??and encourage early mobilization. ?? Patient seen on October 21, 2022. Total time spent with patient and in coordination of care: including reviewing the chart/medical records, speaking with the patient, formulating and discussing the treatment plan, and documenting thefindings and encounter: ??70 + min ?? Histories Allergies Allergies ?(Active and Proposed [...] effects ? Past Medical History/Problem List Active Problems??(21) AC joint derangement Alcohol abuse Alcoholic hepatitis, cirrhosis Anemia Anxiety and depression; admission to [facility] in 06/2015 ED (erectile dysfunction) Esophageal varices s/p TIPS Gynecomastia, male H/o Acute upper GI bleed due to variceal bleed H/O: substance abuse; reports sobriety since summer 2015 History of subdural??hematoma/subarachnoid??hemorrhage??July 2022 Heart murmur, systolic Hepatic encephalopathy Insomnia Sherie's Optic neuropathy Migraine Neuropathy Normocytic anemia ANA LUISA (obstructive sleep apnea) Overweight Patellar contusion, seen by [facility] spring 2015 Vitamin D insufficiency ? Past Surgical History TIPS - Transjugular intrahepatic portosystemic shunt: 03/18/15 Laryngoscopy in 1988 ? Social History Patient lives alone. Alcohol Details:??Use: Current, patient would not quantify how much but per records, 18 beers per day. Substance Abuse Details:??Use: Current. ??Type: Cocaine, Heroin??per old records, but patient states no drug use presently Tobacco Details:??Former smoker, Other: 1/2 PPD since age 35 yo. ??Type: Cigarettes. ??Stopped at age: 40 Years. ?? Family Medical History Patient's parents both living, mother with hypertension and father with??hypertension and hyperlipidemia. Medications Home Medications??(unable to obtain from??patient??due to his intoxication. ??Based on discharge med list from September 08, 2022) Acamprosate (acamprosate 333 mg oral delayed release tablet)?1?tab(s)?333?Milligram?By Mouth?3 times a day Amlodipine (amLODIPine 5 mg oral tablet)?1?tab(s)?By Mouth?Daily?^1R1. Baclofen (baclofen 10 mg oral tablet)?See Instructions?TAKE 1 TABLET BY MOUTH THREE TIMES DAILY Calcium And Vitamin D Combination (calcium (as carbonate)-vitamin D 500 mg-400 intl units oral tablet)?1?tab(s)?By Mouth?Daily?^1R1. Fluticasone Nasal (fluticasone 50 mcg/inh nasal spray)?See Instructions?USE 1 SPRAY(S) INTO EACH NOSTRIL TWICE A DAY Folic Acid (folic acid 1 mg oral tablet)?1?tablet?By Mouth?Daily?R1. Furosemide (furosemide 20 mg oral tablet)?1?tablet?By Mouth?Daily?R1. Gabapentin (gabapentin 300 mg oral capsule)?300?Milligram?1?capsule?By Mouth?2 times a day?for 90?Days?note dose/frequency change HydrOXYzine (hydrOXYzine hydrochloride 10 mg oral tablet)?2?tab(s)?By Mouth?2 times a day?as needed? NEEDED FOR ANXIETY (VIAL) Lactulose (lactulose 10 gm/15 ml oral syrup)?15?Milliliter?By Mouth?2 times a day Lidocaine Topical (Lidoderm 5% film)?1 patch?Topically?Daily?remove patches after 12 hoursNSAIDS contraindicated High dose tylenol contraindicatedremove patches after 12 hoursNueropathy Magnesium Oxide (magnesium oxide 400 mg oral tablet)?1?tab(s)?By Mouth?2 times a day Melatonin (Melatonin 3 mg oral tablet)?1?tab(s)?By Mouth?Daily at bedtime?as needed? NEEDED FOR INSOMNIA (PACKAGE IN TRAY)^1R4 Multivitamin (Tab-A-Jesse oral tablet)?1?tab(s)?By Mouth?Daily Pantoprazole (pantoprazole 40 mg oral delayed release tablet)?1?tab(s)?By Mouth?Daily?for 90?Days?^1R1. Paroxetine (PARoxetine 10 mg oral tablet)?10?Milligram?1?tablet?By Mouth?Daily?for 90?Days Pyridoxine (pyridoxine 50 mg oral tablet)?50?Milligram?1?tablet?By Mouth?Daily?for 90?Days Rifaximin (Xifaxan 550 mg oral tablet)?1?tab(s)?By Mouth?2 times a day?^1R1,1R4. Thiamine (Vitamin B1 100 mg oral tablet)?1?tablet?By Mouth?Daily Trazodone (traZODone 50 mg oral tablet)?2 ??tablets?By Mouth?Daily at bedtime Ubiquinone (Co Q-10 100 mg oral capsule)?See Instructions?TAKE 1 CAPSULE BY MOUTH FOUR TIMES DAILY ? Results Recent Labs BLOOD COUNT & DIFF WBC 4.7 k/mm3 ()?? 10/21/2022 14:20 RBC 4.15 m/mm3 (Low)?? 10/21/2022 14:20 Hgb 12.4 Gm/dL (Low)?? 10/21/2022 14:20 Hct 38.0 % (Low)?? 10/21/2022 14:20 MCV 91.6 femtoliters ()?? 10/21/2022 14:20 MCH 29.9 pg ()?? 10/21/2022 14:20 MCHC 32.6 g/dL (Low)?? 10/21/2022 14:20 Platelet Count 100 k/mm3 (Low)?? 10/21/2022 14:20 RDW-SD 48.4 femtoliters (High)?? 10/21/2022 14:20 MPV 10.9 femtoliters ()?? 10/21/2022 14:20 Nucleated RBC (Automated) 0.0 #/100 WBC'S ()?? 10/21/2022 14:20 Abs. NRBC 0.0 k/mm3 ()?? 10/21/2022 14:20 Abs. Neut 2.7 k/mm3 ()?? 10/21/2022 14:20 Abs. Lymph 1.5 k/mm3 ()?? 10/21/2022 14:20 Abs. [place] 0.4 k/mm3 ()?? 10/21/2022 14:20 Abs. Eo 0.1 k/mm3 ()?? 10/21/2022 14:20 Abs. Baso 0.0 k/mm3 ()?? 10/21/2022 14:20 Neut % 56.3 % ()?? 10/21/2022 14:20 Lymph % 32.8 % ()?? 10/21/2022 14:20 [place] % 8.1 % ()?? 10/21/2022 14:20 Eos % 1.3 % ()?? 10/21/2022 14:20 Baso % 0.9 % ()?? 10/21/2022 14:20 Imm Gran 0.6 % ()?? 10/21/2022 14:20 Abs. Imm Gran 0.0 k/mm3 ()?? 10/21/2022 14:20 ?? CARDIAC CK, Total 210 units/L ()?? 10/21/2022 14:20 High Sensitivity Troponin (HSTnT) 13 ng/L ()?? 10/21/2022 14:20 ?? CHEM GENERAL Sodium 150 mmol/L (High)?? 10/21/2022 21:47 Potassium 3.4 mmol/L (Low)?? 10/21/2022 21:47 Chloride 115 mmol/L (High)?? 10/21/2022 21:47 Bicarbonate Level 19 mmol/L (Low)?? 10/21/2022 21:47 Anion Gap 16 ()?? 10/21/2022 21:47 Glucose Level 130 mg/dL (High)?? 10/21/2022 14:20 BUN 7 mg/dL ()?? 10/21/2022 14:20 Creatinine-Blood 0.6 mg/dL (Low)?? 10/21/2022 14:20 Estimated GFR Creatinine 117 ML/MIN/1.73 M2 ()?? 10/21/2022 14:20 Calcium 8.3 mg/dL (Low)?? 10/21/2022 14:20 Magnesium 2.1 mg/dL ()?? 10/21/2022 14:20 Protein, Total 6.7 Gm/dL ()?? 10/21/2022 14:20 Albumin 3.6 Gm/dL ()?? 10/21/2022 14:20 AG Ratio 1.2 ()?? 10/21/2022 14:20 Alkaline Phosphatase 216 units/L (High)?? 10/21/2022 14:20 Lipase 52 units/L ()?? 10/21/2022 14:20 AST (SGOT) 59 units/L (High)?? 10/21/2022 14:20 ALT (SGPT) 32 units/L ()?? 10/21/2022 14:20 Bilirubin, Total 1.8 mg/dL (High)?? 10/21/2022 14:20 Lactate 3.8 mmol/L (High)?? 10/21/2022 18:25 C-Reactive Protein 0.6 mg/dL (High)?? 10/21/2022 14:20 ?? COAG INR 1.2 (High)?? 10/21/2022 14:20 Protime (PT) 12.9 seconds (High)?? 10/21/2022 14:20 APTT 30.3 seconds ()?? 10/21/2022 14:20 ?? ENDOCRINE/TUMOR MARKER TSH 0.97 uIU/mL ()?? 10/21/2022 14:20 ?? HEME OTHER Sed Rate 11 mm/hr ()?? 10/21/2022 14:20 Hold Lavender Top SPECIMEN DISCARDED AFTER 24 HOURS. ()?? 10/21/2022 21:47 ?? MISC. CHEMISTRY Ammonia, Venous 53 ??mole/L ()?? 10/21/2022 14:20 Hold Gel Top SPECIMEN DISCARDED AFTER 1 WEEK ()?? 10/21/2022 18:25 ?? TOXICOLOGY/TDM Ethanol, Serum or Plasma 344 mg/dL (Abnormal)?? 10/21/2022 14:20 Salicylate Level <0.3 mg/dL (Low)?? 10/21/2022 14:20 Barbiturate Screen, Urine POSITIVE (Abnormal)?? 10/21/2022 18:55 Cannabinoid Screen, Urine NONE DETECTED ()?? 10/21/2022 18:55 Cocaine Metabolite Screen, Urine NONE DETECTED ()?? 10/21/2022 18:55 Benzodiazepine Screen, Urine NONE DETECTED ()?? 10/21/2022 18:55 Amphetamine Screen, Urine NONE DETECTED ()?? 10/21/2022 18:55 Opiate Screen, Urine NONE DETECTED ()?? 10/21/2022 18:55 Acetaminophen Level <5 mg/L (Low)?? 10/21/2022 14:20 ?? UA/URINALYSIS Appear/Color, Urine YELLOW ()?? 10/21/2022 15:47 Specific [place], Urine >1.050 (High)?? 10/21/2022 15:47 pH, Urine 6.0 ()?? 10/21/2022 15:47 Albumin, Urine 1+ (Abnormal)?? 10/21/2022 15:47 Glucose, Urine NEGATIVE ()?? 10/21/2022 15:47 Ketones, Urine NEGATIVE ()?? 10/21/2022 15:47 Bilirubin, Urine NEGATIVE ()?? 10/21/2022 15:47 Hemoglobin, Urine TRACE (Abnormal)?? 10/21/2022 15:47 Nitrite, Urine NEGATIVE ()?? 10/21/2022 15:47 Leukocyte, Urine NEGATIVE ()?? 10/21/2022 15:47 Urobilinogen NORMAL mg/dL ()?? 10/21/2022 15:47 WBC's, Urine NONE SEEN /HPF ()?? 10/21/2022 15:47 RBC's, Urine 4 /HPF (High)?? 10/21/2022 15:47 Squamous Epith <1 /HPF ()?? 10/21/2022 15:47 Mucus SLIGHT /LPF ()?? 10/21/2022 15:47 Hold Urine Culture Testing available 48 hours from time of collection. ()?? 10/21/2022 15:47 ?? URINE OTHER Est Creatinine Clearance 148.43 mL/min ()?? 10/21/2022 20:49 ?? VIROLOGY COVID-19 by RT-PCR NEGATIVE ()?? 10/21/2022 15:47 ?(10/21/2022 14:[address] Head/Brain W/O Contrast) IMPRESSION: ?? No acute abnormality of the head, face or cervical spine. [1] ?? (10/21/2022 14:[address] Chest W/ Contrast) IMPRESSION: ?? 1. Deep bruising over the left anterior superior iliac spine. ?? 2. No other acute bony or soft tissue injury. ?? 3. Persistently dilated gallbladder with cholelithiasis but no convincing evidence of inflammation.Mildly dilated CBD at 7 mm. Correlate with labs and physical exam for acute cholecystitis. Considerfurther evaluation with right upper quadrant ultrasound. ?? 4. Resolved right gluteal muscle collection. [2] [1]??CT Head/Brain W/O Contrast; Jimenez Martinez MD 10/21/2022 14:42 EDT [2]??CT Chest W/ Contrast; Jimenez Martinez MD 10/21/2022 14:47 EDT EKG study * Event Display: EKG Authored Date: Cardiology * Event Display: Cardiac Rhythm Strips Authored Date: Hospital Progress note * Ya LEE, [facility]: PERFORM, SIGN, VERIFY Event Display: Progress Note Hospital Authored Date: [id number] Patient: BILL BASSETT Age: 47 years Sex: Male : 1975 Associated Diagnoses: None Author: Ya LEE, Shayan [facility] Progress Note Interval History hypernatremia resolved Physical Examination Vital Signs Vitals : VITALS 10/24/2022 6:00 EDT Temperature 98.9 DegF Temperature Route Oral Heart Rate Monitored 92 bpm H Respiratory Rate 20 br/min Vented No Systolic Blood Pressure 140 mm Hg H Diastolic Blood Pressure 82 mm Hg Blood pressure sites Arm, right Pulse Pressure 58 mm Hg Oxygen Saturation 95 % Mode of Delivery (Oxygen) Room air . General Appearance NAD. Respiratory Lungs: CTA. Cardiac Cardiac: no M/G/R. Rhythms: RRR. Abdomen/GI Abdomen: soft. Extremities No edema. Neurologic Alert & oriented x 3 . Results Review 7 Day Results Results Laboratory : LABORATORY 10/23/2022 14:19 EDT Sodium 139 mmol/L Potassium 4.3 mmol/L Chloride 110 mmol/L H Bicarbonate Level 19 mmol/L L Anion Gap 10 Impression and Plan Bill Bassett is a 47 y/o M w/ PMH significant for alcohol use disorder, liver cirrhosis, varices s/p TIPS, and frequent falls who presented to [facility] on 10/21/22 for EMS. In the ED, Na was foundto be 150, serum ethanol level was 344 and urine tox was positive for barbiturates. Pt was ultimately admitted, and Nephrology was consulted for Hypernatremia. 1. Hypernatremia Na 150 --> 142 -> 139 Resolved by treating his FW deficit with D5/W Plan: - encourage water intake. - D/C D5/W - start spironolactone - OK for discharge Thank you for the courtesy of this consult, RTANE will continue monitoring the patient along with you please do not hesitate to call us with any further questions Shayan Pandya M.D. [facility] [address] , [address] Available by [facility] * Cris Hernandez RN: PERFORM, SIGN, VERIFY Event Display: Progress Note Hospital Authored Date: [id number] Patient: BILL BASSETT Age: 47 years Sex: Male : 1975 Associated Diagnoses: None Author: Mary RN, Cris Findings Narrative/Incidental pt is IMC. A/Ox4/ NSR. pt increasingly anxious overnight. CIWA performed and pt medicated accordingly. pt expresses his need to go home to buy his mother a mother day gift. demaining that he leave AMA. called to bed side 1x, but pt still expressing the need to leave despite education prpvided. pt otherwise had an uneventful night. pt urinating CYU in urinal. pos. pulses with no edema. clear lungs. abd. sonf, flat, nontender. pt had no acute complaints or changes upon leaving the bedside. VSS. call rivera within reach. bed in lowest and locked position with bed alarm on. see flowsheets for full assessments. . * Cody LEE, Jason Beyer: PERFORM Event Display: Progress Note Hospital Authored Date: [id number] Patient: ??BILL BASSETT ? Age:??47 Years?Sex:??Male?:??1975?? Subjective Patient seen and examined at bedside No significant overnight events Had Tmax 99.9 ??F, mild tachycardia, saturating well on room air Patient is??AOx3, almost at his baseline.?? 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 Denies headache, dizziness, chest pain, shortness of breath, abdominal pain, nausea, vomiting. ??Tolerating diet. Labs reviewed. ??Supplemented potassium.?? Changed IV fluid??from D5W to LR.?? Requested right upper quadrant ultrasound. CIWA scores??8, 6, 8, 6, 1. Review of Systems ROS negative except as noted above Objective Vital Signs?? Temperature: 98.7 DegF (10/23/22 14:00:00) Temperature Route: Oral (10/23/22 14:00:00) Pulse Rate:??103 bpm??High (10/23/22 14:00:00) Heart Rate Monitored:??111 bpm??High (10/23/22 16:00:00) Respiratory Rate: 21 br/min (10/23/22 16:00:00) Vented: No (10/23/22 16:00:00) Systolic Blood Pressure: 127 mm Hg (10/23/22 16:00:00) Diastolic Blood Pressure: 76 mm Hg (10/23/22 16:00:00) Blood pressure sites: Arm, left (10/23/22 16:00:00) Pulse Pressure: 51 mm Hg (10/23/22 16:00:00) Oxygen Saturation: 98 % (10/23/22 16:00:00) Mode of Delivery (Oxygen): Room air (10/23/22 16:00:00) Early Warning Score: 9 (10/23/22 16:21:26) ? Intake/Output? 10/21 18:28 10/23 07:00 10/22 07:00 10/21 07:00 10/20 07:00 ?? 10/23 16:38 10/23 16:38 10/23 06:59 10/22 06:59 10/21 06:59 Intake ? 4429.6 ?836.2 ? 2410 ? 1183.3 ?0 Output ? 3600 ?800 ? 2000 ?800 ?0 Net Total ?829.6 ? 36.2 ?410 ?383.3 ?0 ? Urine Count ?2 ?0 ?2 ?0 ?0 ? Physical Exam General: NAD, Mental Status: AAO x 3 HEENT:?Left periorbital ecchymosis, PERRLA, EOMI, Dry oral mucosa Neck: Supple, Full range of motion. Respiratory: b/l AE fair Cardiovascular: Heart sounds normal. Regular rate and rhythm, Gastrointestinal: Abdomen soft, non-tender, mildly distended.?? Neurologic:?No focal neurological deficits. Moves all extremities spontaneously.? _ 72 Hour Antibiotic History Active Antibiotics Calendar Day Last Administered First Administered Rifaximin??550 mg, By Mouth, 2 times a day ?3 10/23/2022 09:02 10/21/2022 21:15 ? Stopped Antibiotics Stop Date/Time Last Administered First Administered Vancomycin??1 Gm, 200 mL, 200 mL/hr, IVPB, Once 10/21/2022 15:46 10/21/2022 15:45 10/21/2022 15:45 Piperacillin-Tazobactam??3.375 Gm, 25 mL/hr, IVPB, Once 10/21/2022 15:10 10/21/2022 15:00 10/21/2022 15:00 ? Results Recent Labs BLOOD BANK Blood Type O Negative ()?? 10/22/2022 07:43 Antibody Screen Negative ()?? 10/22/2022 07:43 ?? BLOOD COUNT & DIFF WBC 4.1 k/mm3 ()?? 10/23/2022 05:58 RBC 3.51 m/mm3 (Low)?? 10/23/2022 05:58 Hgb 10.8 Gm/dL (Low)?? 10/23/2022 05:58 Hct 30.9 % (Low)?? 10/23/2022 05:58 MCV 88.0 femtoliters ()?? 10/23/2022 05:58 MCH 30.8 pg ()?? 10/23/2022 05:58 MCHC 35.0 g/dL ()?? 10/23/2022 05:58 Platelet Count 61 k/mm3 (Low)?? 10/23/2022 05:58 RDW-SD 43.8 femtoliters ()?? 10/23/2022 05:58 MPV 9.6 femtoliters ()?? 10/23/2022 05:58 Nucleated RBC (Automated) 0.0 #/100 WBC'S ()?? 10/23/2022 05:58 Abs. NRBC 0.0 k/mm3 ()?? 10/23/2022 05:58 ?? CHEM GENERAL Sodium 139 mmol/L ()?? 10/23/2022 14:19 Potassium 4.3 mmol/L ()?? 10/23/2022 14:19 Chloride 110 mmol/L (High)?? 10/23/2022 14:19 Bicarbonate Level 19 mmol/L (Low)?? 10/23/2022 14:19 Anion Gap 10 ()?? 10/23/2022 14:19 Glucose Level 104 mg/dL (High)?? 10/23/2022 05:58 BUN 6 mg/dL ()?? 10/23/2022 05:58 Creatinine-Blood 0.6 mg/dL (Low)?? 10/23/2022 05:58 Estimated GFR Creatinine 117 ML/MIN/1.73 M2 ()?? 10/23/2022 05:58 Calcium 7.9 mg/dL (Low)?? 10/23/2022 05:58 AST (SGOT) 64 units/L (High)?? 10/22/2022 08:58 ALT (SGPT) 28 units/L ()?? 10/22/2022 08:58 Bilirubin, Total 2.9 mg/dL (High)?? 10/23/2022 05:58 Bilirubin, Direct 0.5 mg/dL (High)?? 10/22/2022 08:58 Bilirubin, Indirect 1.5 mg/dL (High)?? 10/22/2022 08:58 Lactate 3.0 mmol/L (High)?? 10/22/2022 07:36 ?? MISC. CHEMISTRY Hold Gel Top SPECIMEN DISCARDED AFTER 1 WEEK ()?? 10/23/2022 05:58 ? Microbiology ?? COVID-19 (Novel Coronavirus), Rapid PCR?? Completed?? Source: Nasal Body Site: Nose Collected Dt/Tm: 10/21/2022 14:11 Last Updated Dt/Tm: 10/21/2022 16:44 ? Assessment/Plan ?? 47-year-old male with??PMH of HTN, alcohol use disorder,??liver cirrhosis, varices status post TIPS,??and history of frequent falls, depression with anxiety??presented??to the hospital??intoxicated.?? He reports??recent multiple falls. ??Admitted for altered mental status, hypothermia, hypernatremia??and lactic acidosis. ?? Altered mental state ??(R41.82) Alcohol intoxication ??(F10.929) Hypothermia: resolved He presented with??altered mental status/alcohol intoxication.?? Was [facility] Weaned off Bairhugger. CTH, c spine: No acute abnormality of the head, face or cervical spine. ???underlying infection vs alcohol related.?? No leukocytosis, ??Alcohol level was elevated.?? s/p 1 dose of IV vancomycin and Zosyn in ED,??monitoring??off antibiotics subsequently. ??UA neg. f/u Blood cx. NTD Mental status improved with??IV fluid, supportive care Continue??CIWA protocol Thiamine, multivitamin Social work consulted Pt reports fall at home, get PT eval ?? Hypernatremia. Hypokalemia:??Improved Patient noted to have hypernatremia with Na of 150. Likely due to dehydration, diuretics Lasix held and started D5W with improvement in Na. Free water deficit corrected and IVF changed to LR@ 75cc/hr Renal following, started Spironolactone. Lee removed, voiding well Trend electrolytes, renal function closely.? Esophageal varices status post TIPS. History of liver cirrhosis, presumably alcohol related Thrombocytopenia Hyperbilirubinemia, dilated CBD Patient??is maintained on??Lasix reportedly, as well as??lactulose??and rifaximin.?? hold his Lasix for now??in setting of his hyponatremia, resume on discharge continue??the lactulose and rifaximin.?? CT showed dilated CBD, cholelithiasis without??findings of cholecystitis.?? Requested??right upper quadrant ultrasound. ?? Anxiety and depression. Continue?? home??paroxetine. ?? Hypertension. ??continue?amlodipine. ?? CODE STATUS.?full code. DVT prophylaxis. HSQ ?? Transfer out of [facility]. ??Anticipate DC home in 1 to 2 days. ??pts mother MARLEN BASSETT?: ??. called and??updated. ? Note * Ibeth Adams RN: PERFORM Event Display: Discharge/Transfer Note Hospital Authored Date: [id number] Nursing Discharge Note Entered On: 10/24/2022 13:51 EDT Performed On: 10/24/2022 13:50 EDT by Ibeth Adams RN Nursing Discharge Note 2 Discharge Time : 10/24/2022 13:50 EDT Discharge Level of Care at Discharge : Homehealth/[facility]NA Patient Left Unit Via : Wheelchair Patient Accompanied Off Unit with : Responsible adult DC Instructions Provided & Signed by Pt : Yes Patient Understands D/C Instructions : Yes Patient Instructions Discharge Signed : Yes Did Pt have Specialty Bed or Wound Vac : No Ibeth Adams RN - 10/24/2022 13:50 EDT * Cody LEE, Jason Beyer: PERFORM Event Display: Discharge/Transfer Note Hospital Authored Date: [id number] Patient: ??BILL BASSETT ? Age:??47 Years?Sex:??Male?:??1975?? Patient Information Discharge Location: [facility] Primary Care Physician: Jany Baig DO Admit Date/Time: 10/21/22 18:28 Discharge Disposition Discharge Disposition: Home with Home Health Discharge Diagnosis Alcohol intoxication (F10.929) Altered mental state (R41.82) Alcohol abuse Alcoholic hepatitis, cirrhosis Hypothermia Hypernatremia. Hypokalemia Esophageal varices status post TIPS. Thrombocytopenia Hyperbilirubinemia, dilated CBD Anxiety and depression. Hypertension. Anemia Anxiety and depression;?? Sherie's Optic neuropathy ? _ Discharge Medications Acamprosate (acamprosate 333 mg oral delayed release tablet)?1?tab(s)?333?Milligram?By Mouth?3 times a day?for 14?Days Amlodipine (amLODIPine 5 mg oral tablet)?1?tab(s)?By Mouth?Daily?^1R1. Baclofen (baclofen 10 mg oral tablet)?See Instructions?TAKE 1 TABLET BY MOUTH THREE TIMES DAILY Calcium And Vitamin D Combination (calcium (as carbonate)-vitamin D 500 mg-400 intl units oral tablet)?1?tab(s)?By Mouth?Daily?^1R1. Durable Medical Equipment (Compression Stockings)?See Instructions?surgical, calf length 20-30 mm HgM79.89M79.606 Durable Medical Equipment (R aircast ankle-stirrup support brace)?See Instructions?Dx: R inversion ankle .409a Fluticasone Nasal (fluticasone 50 mcg/inh nasal spray)?See Instructions?USE 1 SPRAY(S) INTO EACH NOSTRIL TWICE A DAY Folic Acid (folic acid 1 mg oral tablet)?1?tablet?By Mouth?Daily?R1. Furosemide (furosemide 20 mg oral tablet)?1?tablet?By Mouth?Daily?R1. Furosemide (furosemide 20 mg oral tablet)?20?Milligram?1?tablet?By Mouth?Every other day Gabapentin (gabapentin 300 mg oral capsule)?300?Milligram?1?capsule?By Mouth?2 times a day?for 90?Days?note dose/frequency change HydrOXYzine (hydrOXYzine hydrochloride 10 mg oral tablet)?2?tab(s)?By Mouth?2 times a day?as needed? NEEDED FOR ANXIETY (VIAL) Lactulose (lactulose 10 gm/15 ml oral syrup)?15?Milliliter?By Mouth?2 times a day Lidocaine Topical (Lidoderm 5% film)?1 patch?Topically?Daily?remove patches after 12 hoursNSAIDS contraindicated High dose tylenol contraindicatedremove patches after 12 hoursNueropathy Melatonin (Melatonin 3 mg oral tablet)?1?tab(s)?By Mouth?Daily at bedtime?as needed? NEEDED FOR INSOMNIA (PACKAGE IN TRAY)^1R4 Miscellaneous Rx (Eucerin Original Healing Cream)?See Instructions?apply 2 x a day for dry skindx: eczema ??L30.9 Multivitamin (Tab-A-Jesse oral tablet)?1?tab(s)?By Mouth?Daily Pantoprazole (pantoprazole 40 mg oral delayed release tablet)?1?tab(s)?By Mouth?Daily?for 90?Days?^1R1. Paroxetine (PARoxetine 10 mg oral tablet)?10?Milligram?1?tablet?By Mouth?Daily?for 90?Days Pyridoxine (pyridoxine 50 mg oral tablet)?50?Milligram?1?tablet?By Mouth?Daily?for 90?Days Rifaximin (Xifaxan 550 mg oral tablet)?1?tab(s)?By Mouth?2 times a day?^1R1,1R4. Spironolactone (spironolactone 25 mg oral tablet)?25?Milligram?1?tablet?By Mouth?Daily Thiamine (Vitamin B1 100 mg oral tablet)?1?tablet?By Mouth?Daily Trazodone (traZODone 50 mg oral tablet)?2 ??tablets?By Mouth?Daily at bedtime Ubiquinone (Co Q-10 100 mg oral capsule)?See Instructions?TAKE 1 CAPSULE BY MOUTH FOUR TIMES DAILY ? Quality Measures Tobacco Use Treatment:? 72 Hour Antibiotic History Active Antibiotics Calendar Day Last Administered First Administered Rifaximin??550 mg, By Mouth, 2 times a day ?4 10/24/2022 09:58 10/21/2022 21:15 ? Stopped Antibiotics Stop Date/Time Last Administered First Administered Vancomycin??1 Gm, 200 mL, 200 mL/hr, IVPB, Once 10/21/2022 15:46 10/21/2022 15:45 10/21/2022 15:45 Piperacillin-Tazobactam??3.375 Gm, 25 mL/hr, IVPB, Once 10/21/2022 15:10 10/21/2022 15:00 10/21/2022 15:00 ? Vaccinations and Immunoprophylaxis hepatitis B adult vaccine: 1 Unknown (03/01/20 08:00:00) hepatitis B adult vaccine: 1 mL (02/28/13 14:53:00) influenza virus vaccine, inactivated: 0.5 mL (04/09/22 16:23:00) influenza virus vaccine, inactivated: 0.5 Unknown (03/10/21 08:00:00) influenza virus vaccine, inactivated: 0.5 Unknown (03/01/20 08:00:00) influenza virus vaccine, inactivated: 0.5 Unknown (05/01/19 07:00:00) influenza virus vaccine, inactivated: 0.5 Unknown (02/25/18 08:00:00) influenza virus vaccine, inactivated: 0 Unknown (02/12/18 12:00:00) influenza virus vaccine, inactivated: 0.5 mL (04/29/17 15:09:00) influenza virus vaccine, inactivated: 0.5 mL (04/15/16 12:11:00) influenza virus vaccine, inactivated: 0.5 mL (03/16/15 09:12:00) influenza virus vaccine, inactivated: 0.05 mL (03/12/14 14:05:00) influenza virus vaccine, inactivated: 0.5 mL (02/28/13 14:53:00) pneumococcal 23-valent vaccine: 0.5 mL (03/16/15 09:12:00) SARS-CoV-2 (COVID-19) mRNA-1273 vaccine: 0.5 Unknown (04/08/21 08:00:00) SARS-CoV-2 (COVID-19) mRNA-1273 vaccine: 0.5 Unknown (03/10/21 08:00:00) tetanus/diphtheria/pertussis, acel(Tdap): 0.5 mL (06/22/18 23:55:00) tetanus/diphtheria/pertussis, acel(Tdap): 0.5 mL (11/25/15 16:05:00) Hepatitis B Vaccine (old term): 0 Unknown (10/09/19 00:00:00) Hepatitis B Vaccine (old term): 1 mL (09/08/12 08:27:00) Hepatitis B Vaccine (old term): 1 mL (08/09/12 14:57:00) Pneumococcal Vaccine (oldterm): 0.5 mL (08/02/12 17:45:00) Tet/diphth/pertussis, acel (oldterm): 0.5 mL (08/02/12 17:45:00) ? Durable Medical Equipment Discharge recommendations: Home with services (09/07/22) Agency Ticket Seller #1: intake (09/08/22) Service Categories #1: Physical Therapy, Intermediate (09/08/22) Service Start Date and Time #1: 06/09/22 16:00:00 (06/09/22) Service Comments #1: [facility] they will call you within 24/48 hours. if you do not here from them please call them [phone] (09/08/22) Ambulatory devices needed: None (10/21/22) ? Medications Started Acamprosate Spironolactone Medications Discontinued -- Doses Changed Lasix 20mg Q OD Allergies Allergies ?(Active and Proposed Allergies Only) [...] past and had GI side effects ? [facility]u f/u CBC, CMP in 5-7 days Get RUQ USG to evaluate dilated CBD Adjust diuretics based on vol status, labs Ensure f/u with his GI as outpt Future Appointments Wednesday 10:40 AM EDT ?? With: Jany Baig DO Where: [facility] [address] [place] [address]- 2022 11:40 AM EDT ?? With: Jany Baig DO Where: [facility] [address] [place] [address]- Wednesday 9:00 AM EDT ?? With: Where: [facility] Objective Assessment and Plan ?? 47-year-old male with??PMH of HTN, alcohol use disorder,??liver cirrhosis, varices status post TIPS,??and history of frequent falls, depression with anxiety??presented??to the hospital??intoxicated.?? He reports??recent multiple falls. ??Admitted for altered mental status, hypothermia, hypernatremia??and lactic acidosis. ?? Altered mental state ??(R41.82): improved Alcohol intoxication ??(F10.929) Hypothermia: resolved He presented with??altered mental status/alcohol intoxication.?? Was hypothermic [facility]. Weaned off Bairhugger. Temp stable now CTH, c spine: No acute abnormality of the head, face or cervical spine. No leukocytosis, ??Alcohol level was elevated.?? Presentation likely??alcohol related.?? stable off Antibiotics since arrival on floor. Blood cx andUA??neg. Mental status improved with??IV fluid, supportive care No significant withdrawal noted. Counseled sobriety, prescribed Acamprosate on discharge. cont Thiamine, FA, B6, multivitamin Social work consulted Pt reports fall at home,?? PT eval rec HWS and Rx for walker ( provided) ?? Hypernatremia. resolved Hypokalemia:??Improved Patient noted to have hypernatremia with Na of 150. Likely due to dehydration, diuretics Lasix held and started D5W with improvement in Na.?? Renal following, started Spironolactone. changed home lasix to QOD Lee removed, voiding well Trend electrolytes, renal function closely as outpt.? Esophageal varices status post TIPS. History of liver cirrhosis, presumably alcohol related Thrombocytopenia Hyperbilirubinemia, dilated CBD cont Lasix, spironolactone,??lactulose??and rifaximin.?? CT showed dilated CBD, cholelithiasis without??findings of cholecystitis.?? Requested??right upper quadrant ultrasound but pt wanted to get it as outpt. Trend LFTs ?? Anxiety and depression. Continue?? home??paroxetine. ?? Hypertension.?continue?amlodipine. ? DC home with services ??pts mother MARLEN BASSETT?: ??. called and??updated on 10/23. left vm??at discharge. ? Vital Signs?? Temperature: 98.9 DegF (10/24/22 06:00:00) Temperature Route: Oral (10/24/22 06:00:00) Pulse Rate:??92 bpm??High (10/24/22 04:00:00) Heart Rate Monitored: 90 bpm (10/24/22 08:00:00) Respiratory Rate:??15 br/min??Low (10/24/22 08:00:00) Vented: No (10/24/22 08:00:00) Systolic Blood Pressure:??149 mm Hg??High (10/24/22 09:58:00) Diastolic Blood Pressure: 84 mm Hg (10/24/22 09:58:00) Blood pressure sites: Arm, right (10/24/22 08:00:00) Pulse Pressure: 48 mm Hg (10/24/22 08:00:00) Oxygen Saturation: 98 % (10/24/22 08:00:00) Mode of Delivery (Oxygen): Room air (10/24/22 08:00:00) Early Warning Score: 6 (10/24/22 09:58:59) ? . Physical Exam General: NAD, Mental Status: AAO x 3 HEENT:?Left periorbital ecchymosis improving,?? Neck: Supple, Full range of motion. Respiratory: b/l AE fair Cardiovascular: Heart sounds normal. Regular rate and rhythm, Gastrointestinal: Abdomen soft, non-tender, mildly distended.?? LLQ bruise stable Neurologic:?No focal neurological deficits. Moves all extremities spontaneously Consultants Renal Patient Education Titles Cirrhosis?? Alcoholism: Getting Help?? Follow-Up Appointments Added Follow Up ?Time Frame ?Comments Jovanni BALS, Jany?1 week: call to discuss follow up visit?You need follow up labs ( CBC, CMP)??and??Abdominal USG Follow with your Banjo Repair Person in 2-4 weeks Post Discharge Care Condition: improved Discharge ?10/24/22 9:51:00 EDT Discharge Prescriptions ?ePrescribed, ??10/24/22 9:51:00 EDT Home Health Face to Face *Denotes mandatory rowan ?? *I certify that this patient is under my care and that I or an allowed non- physician working with me had a face to face encounter with the patient on this date:??10/24/2022 10:14 ?? *The encounter with the patient was in whole, or in part, for the following medical condition, which is the primary diagnosis(es) for home health care:??Alcohol intoxication (F10.929) Altered mental state (R41.82) Alcohol abuse Alcoholic hepatitis, cirrhosis Anemia Anxiety and depression; admission to [facility] in 06/2015 ED (erectile dysfunction) Esophageal varices s/p TIPS Gynecomastia, male Hepatic encephalopathy Sherie's Optic neuropathy Migraine Neuropathy ANA LUISA (obstructive sleep apnea) [facility] Vitamin D insufficiency ? *Select the indications for the discipline/s that are being arranged for this patient. Nursing (select all that apply): [_] None [x_] Medication management (reconciliation, teaching)?? [x_] Chronic disease management?? [_] Wound care and treatment?? [x_] Home safety evaluation [_] Administer SQ/IM/IV medications?? [_] Cath care?? [_] Drain care?? [_] Trach or GT care?? Other _ Occupation Therapy (select all that apply): [_] None [_] ADL Management [_] Fall prevention training [_] Energy conservation [_] Cognitive training Other _ Physical Therapy (select all that apply): [_] None [_x] Functional mobility training [x_] Home exercise program to strengthen [_] Increase ROM?? [x_] Falls prevention training [x_] Home maintenance program for chronic disease Other _ Speech Therapy (select all that apply): [_] None [_] Swallow evaluation and training [_] Speech and language training [_] Cognitive training to process, organize, and/or recall information Other _ ? *Homebound due to (select all that apply): [x_] Inability to leave home without assistance/supervision [_] Inability to ambulate without assistance [_] Pain [_] Decreased strength and endurance [_] Unsteady gait [_] Severe SOB and fatigue [_] Impaired transfers [_] Inability to negotiate stairs [_] Limited weight bearing [_] Mental status change? *Physician Signature: _Jason Carranza MD ?? *By signing this, I certify that I have personally evaluated the patient and agree with the findings and recommendations as documented above. ? Results Discharge Labs BLOOD BANK Blood Type O Negative ()?? 10/22/2022 07:43 Antibody Screen Negative ()?? 10/22/2022 07:43 ?? BLOOD COUNT & DIFF WBC 4.1 k/mm3 ()?? 10/23/2022 05:58 RBC 3.51 m/mm3 (Low)?? 10/23/2022 05:58 Hgb 10.8 Gm/dL (Low)?? 10/23/2022 05:58 Hct 30.9 % (Low)?? 10/23/2022 05:58 MCV 88.0 femtoliters ()?? 10/23/2022 05:58 MCH 30.8 pg ()?? 10/23/2022 05:58 MCHC 35.0 g/dL ()?? 10/23/2022 05:58 Platelet Count 61 k/mm3 (Low)?? 10/23/2022 05:58 RDW-SD 43.8 femtoliters ()?? 10/23/2022 05:58 MPV 9.6 femtoliters ()?? 10/23/2022 05:58 Nucleated RBC (Automated) 0.0 #/100 WBC'S ()?? 10/23/2022 05:58 Abs. NRBC 0.0 k/mm3 ()?? 10/23/2022 05:58 Abs. Neut 2.7 k/mm3 ()?? 10/21/2022 14:20 Abs. Lymph 1.5 k/mm3 ()?? 10/21/2022 14:20 Abs. [place] 0.4 k/mm3 ()?? 10/21/2022 14:20 Abs. Eo 0.1 k/mm3 ()?? 10/21/2022 14:20 Abs. Baso 0.0 k/mm3 ()?? 10/21/2022 14:20 Neut % 56.3 % ()?? 10/21/2022 14:20 Lymph % 32.8 % ()?? 10/21/2022 14:20 [place] % 8.1 % ()?? 10/21/2022 14:20 Eos % 1.3 % ()?? 10/21/2022 14:20 Baso % 0.9 % ()?? 10/21/2022 14:20 Imm Gran 0.6 % ()?? 10/21/2022 14:20 Abs. Imm Gran 0.0 k/mm3 ()?? 10/21/2022 14:20 ?? CARDIAC CK, Total 210 units/L ()?? 10/21/2022 14:20 High Sensitivity Troponin (HSTnT) 13 ng/L ()?? 10/21/2022 14:20 ?? CHEM GENERAL Sodium 139 mmol/L ()?? 10/23/2022 14:19 Potassium 4.3 mmol/L ()?? 10/23/2022 14:19 Chloride 110 mmol/L (High)?? 10/23/2022 14:19 Bicarbonate Level 19 mmol/L (Low)?? 10/23/2022 14:19 Anion Gap 10 ()?? 10/23/2022 14:19 Glucose Level 104 mg/dL (High)?? 10/23/2022 05:58 BUN 6 mg/dL ()?? 10/23/2022 05:58 Creatinine-Blood 0.6 mg/dL (Low)?? 10/23/2022 05:58 Estimated GFR Creatinine 117 ML/MIN/1.73 M2 ()?? 10/23/2022 05:58 Calcium 7.9 mg/dL (Low)?? 10/23/2022 05:58 Magnesium 2.1 mg/dL ()?? 10/21/2022 14:20 Protein, Total 6.7 Gm/dL ()?? 10/21/2022 14:20 Albumin 3.6 Gm/dL ()?? 10/21/2022 14:20 AG Ratio 1.2 ()?? 10/21/2022 14:20 Alkaline Phosphatase 216 units/L (High)?? 10/21/2022 14:20 Lipase 52 units/L ()?? 10/21/2022 14:20 AST (SGOT) 64 units/L (High)?? 10/22/2022 08:58 ALT (SGPT) 28 units/L ()?? 10/22/2022 08:58 Bilirubin, Total 2.9 mg/dL (High)?? 10/23/2022 05:58 Bilirubin, Direct 0.5 mg/dL (High)?? 10/22/2022 08:58 Bilirubin, Indirect 1.5 mg/dL (High)?? 10/22/2022 08:58 Lactate 3.0 mmol/L (High)?? 10/22/2022 07:36 C-Reactive Protein 0.6 mg/dL (High)?? 10/21/2022 14:20 ? COAG INR 1.2 (High)?? 10/21/2022 14:20 Protime (PT) 12.9 seconds (High)?? 10/21/2022 14:20 APTT 30.3 seconds ()?? 10/21/2022 14:20 ? ENDOCRINE/TUMOR MARKER TSH 0.97 uIU/mL ()?? 10/21/2022 14:20 ? HEME OTHER Sed Rate 11 mm/hr ()?? 10/21/2022 14:20 Hold Lavender Top SPECIMEN DISCARDED AFTER 24 HOURS. ()?? 10/21/2022 21:47 ?? MISC. CHEMISTRY Ammonia, Venous 53 ??mole/L ()?? 10/21/2022 14:20 Hold Gel Top SPECIMEN DISCARDED AFTER 1 WEEK ()?? 10/23/2022 05:58 ?? TOXICOLOGY/TDM Ethanol, Serum or Plasma 344 mg/dL (Abnormal)?? 10/21/2022 14:20 Salicylate Level <0.3 mg/dL (Low)?? 10/21/2022 14:20 Barbiturate Screen, Urine POSITIVE (Abnormal)?? 10/21/2022 18:55 Cannabinoid Screen, Urine NONE DETECTED ()?? 10/21/2022 18:55 Cocaine Metabolite Screen, Urine NONE DETECTED ()?? 10/21/2022 18:55 Benzodiazepine Screen, Urine NONE DETECTED ()?? 10/21/2022 18:55 Amphetamine Screen, Urine NONE DETECTED ()?? 10/21/2022 18:55 Opiate Screen, Urine NONE DETECTED ()?? 10/21/2022 18:55 Acetaminophen Level <5 mg/L (Low)?? 10/21/2022 14:20 ? UA/URINALYSIS Appear/Color, Urine YELLOW ()?? 10/21/2022 15:47 Specific [place], Urine >1.050 (High)?? 10/21/2022 15:47 pH, Urine 6.0 ()?? 10/21/2022 15:47 Albumin, Urine 1+ (Abnormal)?? 10/21/2022 15:47 Glucose, Urine NEGATIVE ()?? 10/21/2022 15:47 Ketones, Urine NEGATIVE ()?? 10/21/2022 15:47 Bilirubin, Urine NEGATIVE ()?? 10/21/2022 15:47 Hemoglobin, Urine TRACE (Abnormal)?? 10/21/2022 15:47 Nitrite, Urine NEGATIVE ()?? 10/21/2022 15:47 Leukocyte, Urine NEGATIVE ()?? 10/21/2022 15:47 Urobilinogen NORMAL mg/dL ()?? 10/21/2022 15:47 WBC's, Urine NONE SEEN /HPF ()?? 10/21/2022 15:47 RBC's, Urine 4 /HPF (High)?? 10/21/2022 15:47 Squamous Epith <1 /HPF ()?? 10/21/2022 15:47 Mucus SLIGHT /LPF ()?? 10/21/2022 15:47 Hold Urine Culture Testing available 48 hours from time of collection. ()?? 10/21/2022 15:47 ?? URINE OTHER Est Creatinine Clearance 148.43 mL/min ()?? 10/21/2022 20:49 ? VIROLOGY COVID-19 by RT-PCR NEGATIVE ()?? 10/21/2022 15:47 ? Microbiology ?? COVID-19 (Novel Coronavirus), Rapid PCR?? Completed?? Source: Nasal Body Site: Nose Collected Dt/Tm: 10/21/2022 14:11 Last Updated Dt/Tm: 10/21/2022 16:44 ? Imaging(s) ?CT Head/Brain W/O Contrast ?? 10/21/2022 14:42??by Jimenez Martinez MD ?CT Chest W/ Contrast ?? 10/21/2022 14:47??by Jimenez Martinez MD ?CT Cervical Spine W/O Contrast ?? 10/21/2022 14:42??by Jimenez Martinez MD ?CT Maxilloface W/O Contrast ?? 10/21/2022 14:42??by Jimenez Martinez MD ?CT Abd/Pelvis W/ IV Contrast Only ?? 10/21/2022 14:47??by Jimenez Martinez MD ? Consults(s) ?Consultation Note ?? 10/22/2022 13:18??by Meena Myers MD ?Consultation Note ?? 10/22/2022 06:51??by Shayan Pandya MD ? 35_ minutes spent on discharge * [facility] LOUIE: PERFORM Event Display: Patient Education/Instruction Authored Date: [id number] Inpatient Adult Discharge Instructions [place] [id number] Name: BILL BASSETT : 1975 Visit: 10/21/2022 18:28:00 Current Date: 10/24/2022 10:23 Account: [id number] Inpatient Adult Discharge Instructions We would like [...] and their families. Surveys are administered by [employer] ?? If further treatment with your primary care physician or another doctor is recommended, it is important for you to keep the appointment. Call your primary care physician or return to the Emergency Department immediately if your condition worsens, fails to improve, or new symptoms develop. If you need to find a doctor, you can call [facility] [employer] for a referral at [phone] or toll free at [phone] or log in to [email or web address] ?? You can view and manage your care through the patient portal or by using a health care sydnie of your choosing. [employer] is a website that allows you to securely view your medical information including your hospital discharge summary, office visit summaries, medications and follow-up visits. You can also request appointments, renew medications, and request access to your medical information using a health care sydnie of your choosing, or just ask a question. You can enroll at [email or web address] or register during your next office visit. You have been discharged from [facility], Patient Care Unit: SW5. If you have any questions regarding these instructions after you leave, please call us and we will be happy to assist you. [facility] Your Care Team Attending Physician Cody LEE, Jason Beyer Consulting Providers Louis LEE, Meena Discharging Providers Cody LEE, Jason Beyer Reason for Your Visit fall Your Diagnosis Alcohol intoxication Altered mental state Altered mental status Tests Performed Below is a partial list of the tests performed during your hospitalization. You may have had other tests and procedures not included in this list. Please discuss all test results with your provider. Acetaminophen Level Alcohol Level ALT Ammonia Venous Amphetamine Urine Screen Aspirin Level AST Barbiturate Urine Screen Basic Metabolic Panel Benzodiazepine Urine Screen Bilirubin Total + Direct BILIRUBIN,TOTAL Cannabinoid Urine Screen CBC w/ Differential Cocaine Urine Screen COVID-19 (Novel Coronavirus), Rapid PCR CPK Total Only CRP Electrolytes ESR High??Sensitivity??Troponin T HOLD GEL TUBE HOLD LAVENDER TUBE Lactate Level LIPASE Opiate Screen Urine PTT TSH with T4 Reflex (Adults Only) Type and Screen Urinalysis w/hold for Urine Culture CT Abd/Pelvis W/ IV Contrast Only CT Cervical Spine W/O Contrast CT Chest W/ Contrast CT Head/Brain W/O Contrast CT Maxilloface W/O Contrast US RUQ?-- Results Pending -- ? You will be contacted within 72 hours with your results. Primary Care Provider Jany Baig DO Advance Directive . Discharge Vitals Temperature: 98.9 DegF Height: 175 cm Pulse Rate:??92 bpm??High Weight: 88.9 kg Respiratory Rate:??15 br/min??Low Body Mass Index:??29.03 kg/m2??High Systolic Blood Pressure:??149 mm Hg??High Body surface area: 2.08 Diastolic Blood Pressure: 84 mm Hg ?? Oxygen Saturation: 98 % ?? Studies Pending All tests and labs ordered during this hospital stay have been completed unless listed below. Please discuss all pending results with your provider listed above in these instructions. ?? Add On Lab Order Blood Culture Blood Culture #2 CBC Comprehensive Metabolic Panel Electrolytes INR Magnesium Level US RUQ What to do next Instructions From Your Doctor Discharge Orders Condition:??improved Scheduled Follow-Up Appointments Wednesday 10:40 AM EDT ?? With: Jany Baig DO Where: [facility] [address] [place] [address]- 2022 11:40 AM EDT ?? With: Jany Baig DO Where: [facility] [address] [place] [address]- Wednesday 9:00 AM EDT ?? With: Where: [facility] You Need to Schedule the Following Appointments Follow Up with??Jany Baig DO When??Within 1 week: call to discuss follow up visit Why: You need follow up labs ( CBC, CMP)??and??Abdominal USG Where: ?? Follow Up with??Follow with your Banjo Repair Person in 2-4 weeks When?? Where: Discharge Medications BILL BASSETT :1975 Visit Date:10/21/2022 Medications: Please continue your medications until treatment is completed or stopped by your provider. Medications not listed below should be discontinued. Discuss any questions related to medications with your provider. What How Much When Why Instructions Next Dose New Durable Medical Equipment (Walker) See instructions 2 wheeled Walker. Dx: Falls, gait abnormality ?? Printed Prescription n/a New Spironolactone (spironolactone 25 mg oral tablet) 1 tab(s) Oral Daily Pickup at [facility] Tomorrow (10/26) @ 9 am Changed Acamprosate (acamprosate 333 mg oral delayed release tablet) 1 tab(s) Oral 3 times a day Duration: 14 Days Pickup at [facility] Today (10/24) @ 3pm Changed Furosemide (furosemide 20 mg oral tablet) 1 tab(s) Oral Daily R1. ?? Tomorrow (10/26) @ 9 am Changed Furosemide (furosemide 20 mg oral tablet) 1 tab(s) Oral Every other day Tomorrow (10/26) @9am Unchanged Amlodipine (amLODIPine 5 mg oral tablet) 1 tab(s) Oral Daily ^1R1. ?? Resume previous schedule Unchanged Baclofen (baclofen 10 mg oral tablet) See instructions TAKE 1 TABLET BY MOUTH THREE TIMES DAILY ?? Resume previous schedule Unchanged Calcium And Vitamin D Combination (calcium (as carbonate)-vitamin D 500 mg-400 intl unitsoral tablet) 1 tab(s) Oral Daily ^1R1. ?? Resume previous schedule Unchanged Durable Medical Equipment (Compression Stockings) See instructions Leg swelling Leg pain surgical, calf length 20-30 mm Hg M79.89 M79.606 ?? n/a Unchanged Durable Medical Equipment (R aircast ankle-stirrup support brace) See instructions Ankle sprain Dx: R inversion ankle sprain s93.409a ?? n/a Unchanged Fluticasone Nasal (fluticasone 50 mcg/ inh nasal spray) See instructions USE 1 SPRAY(S) INTO EACH NOSTRIL TWICE A DAY ?? Resume previous schedule Unchanged Folic Acid (folic acid 1 mg oral tablet) 1 tab(s) Oral Daily R1. ?? Resume previous schedule Unchanged Gabapentin (gabapentin 300 mg oral capsule) 1 capsule Oral Twice a day Duration: 90 Days note dose/ frequency change ?? Resume previous schedule Unchanged HydrOXYzine (hydrOXYzine hydrochloride 10 mg oral tablet) 2 tab(s) Oral Twice a day as needed for NEEDED FOR ANXIETY (VIAL) Resume previous schedule Unchanged Lactulose (lactulose 10 gm/ 15 ml oral syrup) 15 Milliliter Oral Twice a day Resume previous schedule Unchanged Lidocaine Topical (Lidoderm 5% film) 1 patch Topically Daily Neuropathy Rib fracture remove patches after 12 hours NSAIDS contraindicated High dose tylenol contraindicated remove patches after 12 hours Nueropathy ?? Resume previous schedule Unchanged Melatonin (Melatonin 3 mg oral tablet) 1 tab(s) Oral Daily at Bedtime as needed for NEEDED FOR INSOMNIA (PACKAGE IN TRAY)^1R4 Resume previous schedule Unchanged Miscellaneous Rx (Eucerin Original Healing Cream) See instructions apply 2 x a day for dry skin dx: eczema ??L30.9 ?? Resume previous schedule Unchanged Multivitamin (Tab-A-Jesse oral tablet) 1 tab(s) Oral Daily Resume previous schedule Unchanged Pantoprazole (pantoprazole 40 mg oral delayed release tablet) 1 tab(s) Oral Daily Duration: 90 Days ^1R1. ?? Resume previous schedule Unchanged Paroxetine (PARoxetine 10 mg oral tablet) 1 tab(s) Oral Daily Duration: 90 Days Resume previous schedule Unchanged Pyridoxine (pyridoxine 50 mg oral tablet) 1 tab(s) Oral Daily Duration: 90 Days Resume previous schedule Unchanged Rifaximin (Xifaxan 550 mg oral tablet) 1 tab(s) Oral Twice a day ^1R1,1R4. ?? Resume previous schedule Unchanged Thiamine (Vitamin B1 100 mg oral tablet) 1 tab(s) Oral Daily Resume previous schedule Unchanged Trazodone (traZODone 50 mg oral tablet) 2 tablets Oral Daily at Bedtime Resume previous schedule Unchanged Ubiquinone (Co Q-10 100 mg oral capsule) See instructions TAKE 1 CAPSULE BY MOUTH FOUR TIMES DAILY ?? Resume previous schedule Pharmacy Information [facility]: [address] [place] [address] [phone] ?? What How Much When Comments Stop Taking Magnesium Oxide (magnesium oxide 400 mg oral tablet) 1 tab(s) Oral Twice a day Stop Taking Phenobarbital (PHENobarbital 30 mg oral tablet) See instructions Taper -Day 1 -90mg Daily Day 2-3-60mg BID Day 4-5 30mg BID ?? Test Results Below is a partial list of the most recent Laboratory test results done prior to this discharge. You may have had other tests and procedures not included in this list. Please discuss all test resultswith your provider. Est Creatinine Clearance - 148.43 mL/min (10/21/2022) Acetaminophen Level (10/21/2022) ? ?Acetaminophen Level - <5 mg/L Alcohol Level (10/21/2022) ???Ethanol, Serum or Plasma - 344 mg/dL ALT (10/22/2022) ???ALT (SGPT) - 28 units/L Ammonia Venous (10/21/2022) ???Ammonia, Venous - 53 ??mole/L Amphetamine Urine Screen (10/21/2022) ???Amphetamine Screen, Urine - NONE DETECTED Aspirin Level (10/21/2022) ? ?Salicylate Level - <0.3 mg/dL AST (10/22/2022) ???AST (SGOT) - 64 units/L Barbiturate Urine Screen (10/21/2022) ???Barbiturate Screen, Urine - POSITIVE Basic Metabolic Panel (10/23/2022) ???Sodium - 136 mmol/L???Potassium - 3.4 mmol/L???Chloride - 106 mmol/L???Bicarbonate Level - 23 mmol/L???Anion Gap - 7???Glucose Level - 104 mg/dL???BUN - 6 mg/dL???Creatinine-Blood - 0.6 mg/dL???Estimated GFR Creatinine - 117 ML/MIN/1.73 M2???Calcium - 7.9 mg/dL Benzodiazepine Urine Screen (10/21/2022) ???Benzodiazepine Screen, Urine - NONE DETECTED Bilirubin Total + Direct (10/22/2022) ???Bilirubin, Total - 2.0 mg/dL???Bilirubin, Direct - 0.5 mg/dL???Bilirubin, Indirect - 1.5 mg/dL BILIRUBIN,TOTAL (10/23/2022) ???Bilirubin, Total - 2.9 mg/dL Cannabinoid Urine Screen (10/21/2022) ???Cannabinoid Screen, Urine - NONE DETECTED CBC w/ Differential (10/21/2022) ???WBC - 4.7 k/mm3???RBC - 4.15 m/mm3???Hgb - 12.4 Gm/dL???Hct - 38.0 %???MCV - 91.6 femtoliters???MCH - 29.9 pg???MCHC - 32.6 g/dL???Platelet Count - 100 k/mm3???RDW-SD - 48.4 femtoliters???MPV - 10.9 femtoliters???Nucleated RBC (Automated) - 0.0 #/100 WBC'S???Abs. NRBC - 0.0 k/mm3???Abs. Neut - 2.7 k/mm3???Abs. Lymph - 1.5 k/mm3???Abs. [place] - 0.4 k/mm3???Abs. Eo - 0.1 k/mm3???Abs. Baso - 0.0 k/mm3???Neut % - 56.3 %???Lymph % - 32.8 %???[place] % - 8.1 %???Eos % - 1.3 %???Baso % - 0.9 %???Imm Gran - 0.6 %???Abs. Imm Gran - 0.0 k/mm3 Cocaine Urine Screen (10/21/2022) ???Cocaine Metabolite Screen, Urine - NONE DETECTED COVID-19 (Novel Coronavirus), Rapid PCR (10/21/2022) ???COVID-19 by RT-PCR - NEGATIVE CPK Total Only (10/21/2022) ???CK, Total - 210 units/L CRP (10/21/2022) ???C-Reactive Protein - 0.6 mg/dL Electrolytes (10/23/2022) ???Sodium - 139 mmol/L???Potassium - 4.3 mmol/L???Chloride - 110 mmol/L???Bicarbonate Level - 19 mmol/L???Anion Gap - 10 ESR (10/21/2022) ???Sed Rate - 11 mm/hr High??Sensitivity??Troponin T (10/21/2022) ???High Sensitivity Troponin (HSTnT) - 13 ng/L HOLD GEL TUBE (10/23/2022) ???Hold Gel Top - SPECIMEN DISCARDED AFTER 1 WEEK HOLD LAVENDER TUBE (10/21/2022) ???Hold Lavender Top - SPECIMEN DISCARDED AFTER 24 HOURS. Lactate Level (10/22/2022) ???Lactate - 3.0 mmol/L LIPASE (10/21/2022) ???Lipase - 52 units/L Opiate Screen Urine (10/21/2022) ???Opiate Screen, Urine - NONE DETECTED PTT (10/21/2022) ???APTT - 30.3 seconds TSH with T4 Reflex (Adults Only) (10/21/2022) ???TSH - 0.97 uIU/mL Type and Screen (10/22/2022) ???Blood Type - O Negative???Antibody Screen - Negative Urinalysis w/hold for Urine Culture (10/21/2022) ? ?Appear/Color, Urine - YELLOW? ?Specific [place], Urine - >1.050? ?pH, Urine - 6.0? ?Albumin, Urine - 1+???Glucose, Urine - NEGATIVE???Ketones, Urine - NEGATIVE???Bilirubin, Urine - NEGATIVE???Hemoglobin, Urine - TRACE???Nitrite, Urine - NEGATIVE???Leukocyte, Urine - NEGATIVE???Urobilinogen - NORMAL? ?WBC's, Urine - NONE SEEN? ?RBC's, Urine - 4 /HPF? ?Squamous Epith - <1 /HPF? ?Mucus - SLIGHT???Hold Urine Culture - Testing available 48 hours from time of collection. Allergies (NKA means No Known Allergies) NSAIDs Tylenol??(Cirrhosis) aspirin??(Hx GI Bleed) ibuprofen??(Hx of GI Bleed) Problems Active Problems??(21) AC joint derangement?? Alcohol abuse?? Alcoholic hepatitis, cirrhosis?? Anemia?? Anxiety and depression; admission to [facility] in 06/2015?? ED (erectile dysfunction)?? Esophageal varices s/p TIPS?? Gynecomastia, male?? H/o Acute upper GI bleed due to variceal bleed?? H/O: substance abuse; reports sobriety since summer 2015?? Heart murmur, systolic?? Hepatic encephalopathy?? Insomnia?? Sherie's Optic neuropathy?? Migraine?? Neuropathy?? Normocytic anemia?? ANA LUISA (obstructive sleep apnea)?? Overweight?? Patellar contusion, seen by [facility] spring 2015?? Vitamin D insufficiency?? Education Materials Below is the list of Educational Leaflet Providered with your Discharge Instructions. Cirrhosis?? Alcoholism: Getting Help?? Valuables and Belongings I fully understand and agree that [facility] accepts no responsibility for all my [...] to send valuables and belongings home. ?? No Valuables/Belongings: No valuables/belongings present Date for Pt to Sign Valuables/Belongings: 10/24/22 10:19:00 ?? Other Discharge Information ? Pulmonary Rehab Status?? Pulmonary Rehab Discharge Status?? Respiratory Rate:??15 br/min??Low ? Common Emergency Awareness Tips IS IT [...] are strongly encouraged to quit. Please call [facility] e[employer] Link at [phone] or [phone] ([phone]) or log in to [email or web address] for referrals to smoking cessation programs. ?? 985 Suicide & Crisis Lifeline is available 04/01 if you or someone you know needs to find a reason to keep living. By calling 296 you'll be connected to a skilled, trained counselor at a crisis center in your area. INPATIENT DISCHARGE INSTRUCTIONS SIGNATURE PAGE BILL BASSETT Location:[facility] Registration Date and Time:10/21/2022 18:28 EDT Primary Care Physician: Jany Baig DO, I RAULITO BILL, have received the above patient education materials/instructions and have verbalized understanding. If ambulance or transport services are being used I further acknowledge being given a choice of service. ?? If you need to contact me, please call me at this number: . Patient/Blending Supervisor Name: Patient/Blending Supervisor Signature: Relationship to Patient: Witness Name/Signature: Date: * Cody LEE, Jason Beyer: PERFORM Event Display: Patient Education Leaflets Authored Date: [id number] Cirrhosis ?? [id number] Cirrhosis The liver is found on the right side of your belly (abdomen). It's??just below the rib cage. The liver has many important jobs. It removes toxins from the blood. It also helps your blood clot to stopbleeding.??Cirrhosis happens when the liver is scarred or injured. This damage is permanent. It cancause your liver to stop working??(liver failure).?? The most common causes of cirrhosis are long-term heavy alcohol use and having hepatitis B or C. Other causes include nonalcoholic steatohepatitis (TRENT, or fatty liver disease), autoimmune disease, hemochromatosis, toxins, certain medicines, and certain viruses. Common symptoms of cirrhosis include: ??? Tiredness or weakness ??? Loss of appetite ??? Nausea and vomiting ??? Easy bleeding and bruising ??? Swelling of the belly (abdomen) ??? Weight loss ??? Yellowing of the eyes or skin (jaundice) ??? Itching ??? Confusion Treatment helps ease symptoms and prevent more liver damage. You may also get treatment to fight??or cure the hepatitis virus. Quitting alcohol will help stop the disease from getting worse. It may also prevent complications. If cirrhosis gets worse and becomes life threatening,??you may need a??liver transplant.?? Home care ??? Don't take medicines that can make??liver damage worse.??Your healthcare provider will tell you??if any of the medicines you take need to be changed. Talk with your provider or pharmacist before taking any medicine not prescribed. These include any opug-dty-ghppkla medicines, dietary s upplements,??and herbs. Some of these may make??liver damage worse. ??? Talk with your healthcare provider about??medicines that have??acetaminophen or NSAIDs such as ibuprofen and naproxen.??These can harm your liver??and kidneys. ??? Stop drinking alcohol.??If you??find it hard to stop drinking, seek professional help. Consider joining Alcoholics Anonymous??or another type of treatment program??for support. Ask your providers for detoxification information or rehabilitation centers. ??? If you use IV drugs, you are at high risk for hepatitis B and C. Seek help to stop.? Get regular exercise and maintain your weight in the normal range. Seek help from your provider if this is difficult for you. Treat any underlying metabolic conditions. This is very important because metabolic conditions such as obesity, high blood pressure, heart disease, diabetes, and high cholesterol can lead to liver disease or make it worse. ??? Be sure to ask your healthcare provider about recommended vacci chris. These include vaccines for viruses that can cause liver disease. ?? Follow-up care Follow up with your healthcare provider, or as advised. If you have cirrhosis, you may need testingto look for complications, including liver cancer. Keep follow-up appointments. Consistent trackingof your overall health and lab values is important. For more information and to learn about support groups for people with liver disease, contact: ??? [employer],?? www.liverfoundation.org ??? [employer], www.aasldfoundation.org/patients ?? When to seek medical advice Call your healthcare provider right away if: ??? You rapidly gain weight, with increased size of your belly (abdomen) or leg swelling ??? Yellow color of your skin or eyes (jaundice) gets worse ??? You have excess bleeding from cuts or injuries ??? You have blood in your vomit or bleeding from yourrectum ?? Last Reviewed Date: 2021 ?? 3407-4814 [employer]. All rights reserved. This information is not intended as a substitute for professional medical care. Always follow your healthcare professional's instructions. ?? * Cody LEE, Jason Beyer: PERFORM Event Display: Patient Education Leaflets Authored Date: [id number] Alcoholism: Getting Help ?? 93729 Alcoholism: Getting Help Facing a problem with alcohol can be hard. Once a person decides to get help, it can be found in many places. Below you will find resources that can give you more information. They can also help you find treatment. Primary care Talk with your primary healthcare provider. Sometimes your provider??can give you safe, effective medicine that can help you stop drinking. If your healthcare provider can't offer this medicine, theycan refer you to a specialist. ?? Specialist care This kind of care can be inpatient. It means you spend a period of time in a facility. Or it can beoutpatient. This means you come and go. The facilities have medical support and can help a person detox. Most health insurance plans will cover at least some treatment. To find this kind of care, talk to your healthcare provider or a counselor. Or call a mental health clinic and ask for information. You can also look for providers online at the Substance Abuse and Mental Health Services Administration website at findtreatment.[facility].gov . ?? Alcoholics Anonymous Alcoholics Anonymous (AA) helps members get sober and stay sober. They help you build healthy patterns of living. Everyone is welcome at an AA meeting. You don't have to identify yourself. Some people find it easier to go to the first meeting with a friend. To find a meeting near you, go to the Alcoholics Anonymous website at www.aa.org. ?? The road to recovery Many people with alcoholism can give up alcohol for good. But change may not be easy or quick. Treatment is only a start. Relapses can be common. A relapse is not a sign of failure. Instead, it meanstreatment should continue. Once a person stops drinking, support is needed for them to stay sober. After-care programs and groups, such as AA, are good for this kind of support. ?? To learn more ??? National Pinnacle on Alcohol Abuse and Alcoholism at www.niaaa.nih.gov/rmifdiez-znuiovo-zvvagu ??? Alcoholics Anonymous at www.aa.org ??? Substance Abuse and Mental Health ServicesAdministration at findtreatment.[facility].gov ??? SMART Recovery at www.[employer].org ?? Last Reviewed Date: 2021 ?? 2450-9234 [employer]. All rights reserved. This information is not intended as a substitute for professional medical care. Always follow your healthcare professional's instructions. ?? CT Maxillofacial region WO contrast * BHSPowerscriton , CIS S: Jimenez Bearden MD: VERIFY Event Display: Result: Authored Date: [id number] CT Head/Brain W/O Contrast, CT Cervical Spine W/O Contrast, CT Maxilloface W/O Contrast INDICATION: Found down. Head face and neck injury. History of prior intracranial hemorrhage.. COMPARISON: 10/01/2022, 09/16/2019 09/08/2019 TECHNIQUE: Incremental CT scan through the head and spiral CT through the face and cervical spine without contrast, formatted in multiple planes. Images were also reconstructed on-the-fly using the PACS multiplanar reconstruction tool The cervical and facial portions of the exam were performed withautomatic exposure control. FINDINGS: HEAD: BRAIN:No parenchymal hemorrhage or swelling. Unchanged small bilateral medial temporal cortical defects. No evidence of infarct. Negative insular ribbon and hyperdense vessel signs. Unchanged moderate atrophy pattern of the sulci. EXTRA-AXIAL SPACES: Resolved subdural hemorrhages. No new extra-axial hemorrhage. BASILAR CISTERNS:Normal. CALVARIUM, SKULL BASE AND SOFT TISSUES:No bone lesions or fractures. Unremarkable soft tissues. CERVICAL SPINE: CERVICO-OCCIPITAL JUNCTION: Intact. ODONTOID PROCESS and C1/2 ARTICULATION: Intact. SPINE: No fracture or malalignment. OTHER BONES: Healing upper rib and right C7 transverse process fractures. SOFT TISSUES AND LUNG APICES: Normal. No hematoma or pneumothorax. MAXILLOFACIAL: Paranasal sinuses: Clear. Nasal bones: Normal. Zygomatic arches: Normal. Pterygoid plates. Normal. Maxilla: Normal. Mandible: Normal. Orbits: Normal. IMPRESSION: No acute abnormality of the head, face or cervical spine. WSN: [id number] Ordering Physician: Livier Falk Dictated By: Jimenez Martinez MD Dictated Date/Time: 10/21/22 3:31 pm Reviewed By: Jimenez Martinez MD Signed By: Jimenez Martinez MD Signed Date/Time: 10/21/22 3:31 pm Transcribed By: MIRNA Transcribed Date/Time: 10/21/22 3:[address] Cervical spine WO contrast * BHSPowerscribe , CIS S: TRANSCRIBE Jimenez Martinez MD: VERIFY Event Display: Result: Authored Date: [id number] CT Head/Brain W/O Contrast, CT Cervical Spine W/O Contrast, CT Maxilloface W/O Contrast INDICATION: Found down. Head face and neck injury. History of prior intracranial hemorrhage.. COMPARISON: 10/01/2022, 09/16/2019 09/08/2019 TECHNIQUE: Incremental CT scan through the head and spiral CT through the face and cervical spine without contrast, formatted in multiple planes. Images were also reconstructed on-the-fly using the [employer] multiplanar reconstruction tool The cervical and facial portions of the exam were performed withautomatic exposure control. FINDINGS: HEAD: BRAIN:No parenchymal hemorrhage or swelling. Unchanged small bilateral medial temporal cortical defects. No evidence of infarct. Negative insular ribbon and hyperdense vessel signs. Unchanged moderate atrophy pattern of the sulci. EXTRA-AXIAL SPACES: Resolved subdural hemorrhages. No new extra-axial hemorrhage. BASILAR CISTERNS:Normal. CALVARIUM, SKULL BASE AND SOFT TISSUES:No bone lesions or fractures. Unremarkable soft tissues. CERVICAL SPINE: CERVICO-OCCIPITAL JUNCTION: Intact. ODONTOID PROCESS and C1/2 ARTICULATION: Intact. SPINE: No fracture or malalignment. OTHER BONES: Healing upper rib and right C7 transverse process fractures. SOFT TISSUES AND LUNG APICES: Normal. No hematoma or pneumothorax. MAXILLOFACIAL: Paranasal sinuses: Clear. Nasal bones: Normal. Zygomatic arches: Normal. Pterygoid plates. Normal. Maxilla: Normal. Mandible: Normal. Orbits: Normal. IMPRESSION: No acute abnormality of the head, face or cervical spine. WSN: [id number] Ordering Physician: Livier Falk Dictated By: Jimenez Martinez MD Dictated Date/Time: 10/21/22 3:31 pm Reviewed By: Jimenez Martinez MD Signed By: Jimenez Martinez MD Signed Date/Time: 10/21/22 3:31 pm Transcribed By: CSErika Transcribed Date/Time: 10/21/22 3:[address] Head WO contrast * BHSPowerscribe , CIS S: TRANSCRIBE Jimenez Martinez MD: VERIFY Event Display: Result: Authored Date: [id number] CT Head/Brain W/O Contrast, CT Cervical Spine W/O Contrast, CT Maxilloface W/O Contrast INDICATION: Found down. Head face and neck injury. History of prior intracranial hemorrhage.. COMPARISON: 10/01/2022, 09/16/2019 09/08/2019 TECHNIQUE: Incremental CT scan through the head and spiral CT through the face and cervical spine without contrast, formatted in multiple planes. Images were also reconstructed on-the-fly using the [employer] multiplanar reconstruction tool The cervical and facial portions of the exam were performed withautomatic exposure control. FINDINGS: HEAD: BRAIN:No parenchymal hemorrhage or swelling. Unchanged small bilateral medial temporal cortical defects. No evidence of infarct. Negative insular ribbon and hyperdense vessel signs. Unchanged moderate atrophy pattern of the sulci. EXTRA-AXIAL SPACES: Resolved subdural hemorrhages. No new extra-axial hemorrhage. BASILAR CISTERNS:Normal. CALVARIUM, SKULL BASE AND SOFT TISSUES:No bone lesions or fractures. Unremarkable soft tissues. CERVICAL SPINE: CERVICO-OCCIPITAL JUNCTION: Intact. ODONTOID PROCESS and C1/2 ARTICULATION: Intact. SPINE: No fracture or malalignment. OTHER BONES: Healing upper rib and right C7 transverse process fractures. SOFT TISSUES AND LUNG APICES: Normal. No hematoma or pneumothorax. MAXILLOFACIAL: Paranasal sinuses: Clear. Nasal bones: Normal. Zygomatic arches: Normal. Pterygoid plates. Normal. Maxilla: Normal. Mandible: Normal. Orbits: Normal. IMPRESSION: No acute abnormality of the head, face or cervical spine. WSN: [id number] Ordering Physician: Livier Falk Dictated By: Jimenez Martinez MD Dictated Date/Time: 10/21/22 3:31 pm Reviewed By: Jimenez Martinez MD Signed By: Jimenez Martinez MD Signed Date/Time: 10/21/22 3:31 pm Transcribed By: MIRNA Transcribed Date/Time: 10/21/22 3:[address] Abdomen and Pelvis W contrast IV * BHSPowerscribe , CIS S: TRANSCRIBE Tabatha Bear MD: SIGN Jimenez Martinez MD: VERIFY Event Display: Result: Authored Date: [id number] CT Chest W/ Contrast, CT Abd/Pelvis W/ IV Contrast Only INDICATION: Found down. Possible blunt injury. History portal cirrhosis and portal hypertension. Mild abdominal tenderness and left upper quadrant bruising. TECHNIQUE: Helical CT scan of the chest, abdomen, and pelvis with IV contrast, formatted in 3 planes. 100 cc of Omnipaque 300 was administered intravenously. This study was performed without oral contrast. Weight-based protocol was performed using automatic exposure control. COMPARISON: 07/14/2022 FINDINGS: Dean Of Faculty view findings, lines and tubes: Lee catheter in place. Trachea and airways: Patent without evidence of tracheal or endobronchial lesion. Lungs and pleura: Clear. No effusion or pneumothorax. Mediastinum and daisy: No mass or hematoma. No mediastinal or hilar lymphadenopathy. No esophageal abnormality. Normal thyroid. Heart: Heart is normal in size. No pericardial effusion. No coronary arterial calcifications. Aorta: No aortic aneurysm. Pulmonary arteries: Normal caliber. No evidence of pulmonary embolism on this study performed without angiographic technique. Diaphragm: Intact. Liver: Cirrhotic morphology. Status post TIPS. No evidence of suspicious mass Gallbladder: Dilated gallbladder up to 5.6 cm. Small stone visualized within the lumen, unchanged from prior exam. No surrounding inflammation or evidence of wall thickening. Bile ducts: Mildly prominent common bile duct measuring 0.7 cm (series 208: Image 54), increased from prior exam. Spleen: Splenomegaly measuring up to 15.1 cm (series 207: Image 81)., increased from prior exam, previously measuring up to 14.1 cm. Pancreas: No suspicious lesion or ductal dilatation. Adrenal glands: No nodule. Kidneys and ureters: No hydronephrosis, stone, or suspicious lesion. Simple appearing renal cysts and hypodensities that are too small to characterize are noted, requiring no dedicated follow up. Bladder: Decompressed, with Lee catheter in place, limiting evaluation. No gross abnormality. Reproductive organs: Unremarkable. Stomach, small bowel, and large bowel: Normal caliber stomach and bowel loops. No surrounding inflammatory changes. Appendix: Not seen, but no evidence of acute appendicitis. Peritoneum and retroperitoneum: No ascites or pneumoperitoneum. No omental or mesenteric lesions. Lymph nodes: No enlarged lymph nodes. Blood vessels: Mild vascular calcifications but no aneurysm. No evidence of venous thrombosis. Embolization coils within the epigastric region. Chest, abdomen and pelvic wall soft tissues: * Mild fat stranding/fluid within the subcutaneous tissues of the lower left anterior iliac crest (series 201: Image 155), with mild involvement of the adjacent musculature. * Resolved intramuscular fluid collection of the right gluteus teresita muscle. Mild residual fat stranding is within the adjacent subcutaneous tissues is present. * Small bilateral inguinal and umbilical hernias. * Mild bilateral gynecomastia. Bones: * No acute abnormality. * Old healed/healing bilateral rib and left clavicle fractures. 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 Stable hardware. IMPRESSION: 1. Deep bruising over the left anterior superior iliac spine. 2. No other acute bony or soft tissue injury. 3. Persistently dilated gallbladder with cholelithiasis but no convincing evidence of inflammation.Mildly dilated CBD at 7 mm. Correlate with labs and physical exam for acute cholecystitis. Considerfurther evaluation with right upper quadrant ultrasound. 4. Resolved right gluteal muscle collection. I have personally reviewed the images and I agree with this report. WSN: [id number] Ordering Physician: Livier Falk Dictated By: Tabatha Bear MD Dictated Date/Time: 10/21/22 3:54 pm Reviewed By: Jimenez Martinez MD Signed By: Jimenez Martinez MD Signed Date/Time: 10/21/22 3:59 pm Transcribed By: MIRNA Transcribed Date/Time: 10/21/22 3:[address] Chest W contrast IV * [facility] , CIS S: TRANSCRIBE Tabatha Bear MD: SIGN Jimenez Martinez MD: VERIFY Event Display: Result: Authored Date: [id number] CT Chest W/ Contrast, CT Abd/Pelvis W/ IV Contrast Only INDICATION: Found down. Possible blunt injury. History portal cirrhosis and portal hypertension. Mild abdominal tenderness and left upper quadrant bruising. TECHNIQUE: Helical CT scan of the chest, abdomen, and pelvis with IV contrast, formatted in 3 planes. 100 cc of Omnipaque 300 was administered intravenously. This study was performed without oral contrast. Weight-based protocol was performed using automatic exposure control. COMPARISON: 07/14/2022 FINDINGS: Dean Of Faculty view findings, lines and tubes: Lee catheter in place. Trachea and airways: Patent without evidence of tracheal or endobronchial lesion. Lungs and pleura: Clear. No effusion or pneumothorax. Mediastinum and daisy: No mass or hematoma. No mediastinal or hilar lymphadenopathy. No esophageal abnormality. Normal thyroid. Heart: Heart is normal in size. No pericardial effusion. No coronary arterial calcifications. Aorta: No aortic aneurysm. Pulmonary arteries: Normal caliber. No evidence of pulmonary embolism on this study performed without angiographic technique. Diaphragm: Intact. Liver: Cirrhotic morphology. Status post TIPS. No evidence of suspicious mass Gallbladder: Dilated gallbladder up to 5.6 cm. Small stone visualized within the lumen, unchanged from prior exam. No surrounding inflammation or evidence of wall thickening. Bile ducts: Mildly prominent common bile duct measuring 0.7 cm (series 208: Image 54), increased from prior exam. Spleen: Splenomegaly measuring up to 15.1 cm (series 207: Image 81)., increased from prior exam, previously measuring up to 14.1 cm. Pancreas: No suspicious lesion or ductal dilatation. Adrenal glands: No nodule. Kidneys and ureters: No hydronephrosis, stone, or suspicious lesion. Simple appearing renal cysts and hypodensities that are too small to characterize are noted, requiring no dedicated follow up. Bladder: Decompressed, with Lee catheter in place, limiting evaluation. No gross abnormality. Reproductive organs: Unremarkable. Stomach, small bowel, and large bowel: Normal caliber stomach and bowel loops. No surrounding inflammatory changes. Appendix: Not seen, but no evidence of acute appendicitis. Peritoneum and retroperitoneum: No ascites or pneumoperitoneum. No omental or mesenteric lesions. Lymph nodes: No enlarged lymph nodes. Blood vessels: Mild vascular calcifications but no aneurysm. No evidence of venous thrombosis. Embolization coils within the epigastric region. Chest, abdomen and pelvic wall soft tissues: * Mild fat stranding/fluid within the subcutaneous tissues of the lower left anterior iliac crest (series 201: Image 155), with mild involvement of the adjacent musculature. * Resolved intramuscular fluid collection of the right gluteus teresita muscle. Mild residual fat stranding is within the adjacent subcutaneous tissues is present. * Small bilateral inguinal and umbilical hernias. * Mild bilateral gynecomastia. Bones: * No acute abnormality. * Old healed/healing bilateral rib and left clavicle fractures. 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 Stable hardware. IMPRESSION: 1. Deep bruising over the left anterior superior iliac spine. 2. No other acute bony or soft tissue injury. 3. Persistently dilated gallbladder with cholelithiasis but no convincing evidence of inflammation.Mildly dilated CBD at 7 mm. Correlate with labs and physical exam for acute cholecystitis. Considerfurther evaluation with right upper quadrant ultrasound. 4. Resolved right gluteal muscle collection. I have personally reviewed the images and I agree with this report. WSN: [id number] Ordering Physician: Livier Falk Dictated By: Tabatha Bear MD Dictated Date/Time: 10/21/22 3:54 pm Reviewed By: Jimenez Martinez MD Signed By: Jimenez Martinez MD Signed Date/Time: 10/21/22 3:59 pm Transcribed By: MIRNA Transcribed Date/Time: 10/21/22 3:36 pm Patient Care team information Care Team Personnel Name: Alexandra Colmenares RN Position: [facility] ED RN W/OE and Tasks Member Role: Primary Care Nurse Name: Garima Manzano RN Position: [facility] RN Member Role: Primary Care Nurse Name: Malgorzata Marinelli RN Position: [facility] RN Member Role: Primary Care Nurse Name: Joyce Roach RN Position: [facility] RN Member Role: Primary Care Nurse Name: Mary Suazo RN Position: [facility] RN Member Role: Primary Care Nurse Name: Andres Pressley RN Position: [facility] RN Member Role: Primary Care Nurse Name: Jany Baig DO Position: [facility] Primary Care Physician Member Role: PCP Address: Address: [address] [place] [address] Adult & [place] [address]- Name: Neida Ballard RN Position: [facility] RN Member Role: Primary Care Nurse Name: Kaye Payne RN Position: [facility] RN Member Role: Primary Care Nurse Name: Garima Hutchinson Position: [facility] RN Member Role: Primary Care Nurse Name: Malgorzata Austin Position: [facility] RN Member Role: Primary Care Nurse Name: Ibeth Adams RN Position: [facility] RN Member Role: Primary Care Nurse Name: Torrie Hernandez RN Position: [facility] OB RN Member Role: Primary Care Nurse Name: Gretchen Knutson RN Position: [facility] SN RN Member Role: Primary Care Nurse Name: Aislinn Mckee RN Position: [facility] RN Member Role: Primary Care Nurse Name: [place] Mcelroy Position: [facility] RN Member Role: Primary Care Nurse Name: Cody Garcia Position: [facility] Associate Professional Member Role: Lifetime Consulting Provider Address: Address: [address] [place] [address]- Name: Ge Covarrubias RN Position: [facility] RN Member Role: Primary Care Nurse Name: Orin Elmore RN Position: [facility] ED RN W/OE and Tasks Member Role: Primary Care Nurse Name: Allegra Liu RN Position: [facility] PCO RN Member Role: Primary Care Nurse Name: Shayan Pandya MD Position: [facility] Renal MD Member Role: Lifetime Consulting Physician Address: Address: [address] [facility] [place] [address]- [place] Name: Darlene Rodrigez RN Position: [facility] RN Member Role: Primary Care Nurse Name: Kwan Mills RN Position: [facility] RN Member Role: Primary Care Nurse Name: Dolores Can RN Position: [facility] RN Member Role: Primary Care Nurse Name: Kim Rendon RN Position: [facility] RN Member Role: Primary Care Nurse Name: Monica Rowell RN Position: [facility] RN Member Role: Primary Care Nurse Name: Jimi Fitzpatrick RN Position: [facility] RN Member Role: Primary Care Nurse Name: KbSalvatore Jorgensen Attending Position: [facility] ED Medicine MD Name: Stephanie Hays Position: [facility] ED TA [facility] Member Role: Patient Care Provider Name: Claudio Islas DO Position: [facility] Resident Member Role: ED Resident Address: Address: [address] [place] [address] [place] [address]- [place] Name: Ge Muhammad RN Position: [facility] ED RN W/OE and Tasks Member Role: Patient Care Provider Care Team Related Persons Name: MARLEN BASSETT Address: home [address] [place] [address] Name: MARLEN BASSETT Address: home [address] [place], [place] Name: NICK BASSETT Name: BILL BASSETT Address: home [address] [place] [address]
--- OUTSIDE RECORDS SUMMARY | 2023-12-15 20:48 | XMS_ITS | Continuity of Care Document ---
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 Role Phone Jany Baig DO Primary Care Physician Encounter [facility] Date(s): 01/11/23 - 02/10/23 [facility] [address] [place], [place] [address] Allergies, Adverse Reactions, Alerts [...] 08/02/12 Give n 1Result Comment: [facility]: [id number] 2Result Comment: [04/29/2017] [id number] 3Admin Note: FLUARIX 4Admin Note: 3 RDINJ 5Admin Note: #2 Medications acamprosate 333 mg oral delayed release tablet 1 tablet = 333 mg, By Mouth, 3 times a day, # 42 tablet, 4 Refills, Maintenance, 11/05/22 11:31:00 EDT, [facility], Partial fill upon patient request if the prescription is for a schedule II opioid drug., 175, cm, 11/05/22 10:21:00... Start Date: 11/05/22 Stop Date: 01/14/23 Status: Ordered amLODIPine 5 mg oral tablet 1 tablet, By Mouth, Daily, ^1R1., # 30 tablet, 5 Refills, Maintenance, 12/22/22 7:20:00 EDT, [facility], 175, cm, 12/03/22 11:50:00 EDT, Height, 88.9, kg, 10/21/22 20:41:00 EDT, Dry Weight Start Date: 12/22/22 Status: Ordered baclofen 10 mg oral tablet See Instructions, TAKE ONE TABLET BY MOUTH THREE TIMES A DAY ^1R1,1R2,1R4, # 90 tablet, Refills 5, Tot. Refills 5, Maintenance, 01/14/23 17:55:00 EDT, Instructions Replace Required Details, Route to Pharmacy Electronically, [facility], 175, cm... Start Date: 01/14/23 Status: Ordered calcium (as carbonate)-vitamin D 500 mg-400 intl units oral tablet 1 tablet, By Mouth, Daily, ^1R1., # 28 tablet, 0 Refills, Maintenance, 12/01/22 16:12:00 EDT, [facility], 28, 1 tablet [...] capsule, 6 Refills, Maintenance, 12/03/22 12:13:00 EDT, [facility], 175, cm, 12/03/22 [...] use 6 daily per 6 wk period ARFI 99 mo n39.48, 11/13/22 11:18:00 EDT, Compound Start Date: 11/13/22 Status: Ordered diclofenac 1% topical gel See Instructions, APPLY TOPICALLY FOUR TIMES A DAY NEEDED FOR PAIN, # 100 Gm, 0 Refills, Maintenance, 01/28/23 12:31:00 EDT, [facility], 13, APPLY TOPICALLY FOUR TIMES A DAY NEEDED FOR PAIN, 175, cm, 12/03/22 11:50:00 EDT, Height, 88.9,... Start Date: 01/28/23 Status: Ordered diclofenac 1% topical gel See Instructions, APPLY TOPICALLY FOUR TIMES A DAY NEEDED FOR PAIN, # 100 Gm, 0 Refills, Maintenance, 12/22/22 16:58:00 EDT, [facility], 13, APPLY TOPICALLY FOUR TIMES A [...] Gm, 11 Refills, Maintenance, 08/07/22 12:12:00 EST, [facility]/pharmacy #[id number], 30, USE 1 SPRAY(S) INTO EACH NOSTRIL TWICE A DAY, 176, cm,08/07/22 11:37:00 EST, Height, 79.8, kg, 07/31/22 2... Start Date: 08/07/22 Status: Ordered folic acid 1 mg oral tablet 1, tablet, By Mouth, Daily, R1., # 30 tablet, Refills 5, Tot. Refills 5, Maintenance, 10/06/22 4:59:00 EDT, [facility], 176, cm, 09/07/22 8:56:00 EDT, Height, 82.1, kg, 09/07/22 8:59:00 EDT, Dry Weight Start Date: 10/06/22 Status: Ordered furosemide 20 mg oral tablet 1, tablet, By Mouth, Daily, R1., # 30 tablet, Refills 5, Tot. Refills 5, Maintenance, 09/03/22 14:50:00 EDT, [facility], 169, cm, 09/03/22 14:21:00 EDT, Height, 69, kg, 08/16/22 1:04:00 EST, Dry Weight Start Date: 09/03/22 Status: Ordered furosemide 20 mg oral tablet 20 mg, 1, tablet, By Mouth, Every other day, # 30 tablet, Refills 3, Tot. Refills 3, Maintenance, 01/28/23 12:31:00 EDT, Route to Pharmacy Electronically, [facility], Partial fill upon patient request if the prescription is for a schedule II o... Start Date: 01/28/23 Status: Ordered gabapentin 300 mg oral capsule 300 mg, 1, capsule, By Mouth, Daily at bedtime, note dose/frequency change, # 90 capsule, Refills 4, Tot. Refills 4, Maintenance, 11/05/22 11:05:00 EDT, Route to Pharmacy Electronically, [facility], 175, cm, 11/05/22 10:21:00 EDT, Height, 88.9... Start Date: 11/05/22 Stop Date: 01/29/24 Status: Ordered hydrOXYzine hydrochloride 10 mg oral tablet 2 tablet, By Mouth, 2 times a day, PRN NEEDED FOR ANXIETY (VIAL), # 30 tablet, 3 Refills, Maintenance, 12/22/22 16:57:00 EDT, [facility], 175, cm, 12/03/22 11:50:00 EDT, Height, 88.9, kg, 10/21/22 20:41:00 EDT, Dry Weight Start Date: 12/22/22 Status: Ordered lactulose 10 gm/15 ml oral syrup 15 mL, By Mouth, 2 times a day, # 120 mL, 6 Refills, Maintenance, 09/22/22 12:15:00 EDT, [facility], 4, TAKE 15ML [...] patch, 5 Refills, Maintenance, 11/05/22 11:04:00 EDT, [facility], Partial klaudia... Start Date: 11/05/22 Status: Ordered magnesium oxide 400 mg oral tablet See Instructions, TAKE 1 TABLET BY MOUTH TWICE A DAY^1R1,1R4, # 60 tablet, 11 Refills, Maintenance,01/28/23 12:31:00 EDT, [facility], 175, cm, 12/03/22 11:50:00 EDT, Height, 88.9, kg, 10/21/22 20:41:00 EDT, Dry Weight Start Date: 01/28/23 Status: Ordered Melatonin 3 mg oral tablet 1 tablet, By Mouth, Daily at bedtime, PRN NEEDED FOR INSOMNIA (PACKAGE IN TRAY)^1R4, # 60 tablet, 5 Refills, Maintenance, 06/12/22 18:11:00 EST, [facility], 60, TAKE 1 [...] 09/03/22 14:53:00 EDT, Route to Pharmacy Electronically, [facility], Partial fill upon patient request if [...] 11/05/22 11:31:00 EDT, Route to Pharmacy Electronically, [facility], Partial fill upon patient request if the prescription is for a schedule II opioid drug... Start Date: 11/05/22 Status: Ordered Tab-A-Jesse oral tablet 1 tablet, By Mouth, Daily, # 90 tablet, 1 Refills, 12/01/22 12:59:00 EDT, [facility], 28, 1tablet By Mouth Daily, 175, cm, 11/13/22 10:42:00 EDT, Height, 88.9, kg, 10/21/22 20:41:00 EDT, DryWeight Start Date: 12/01/22 Status: Ordered traZODone 50 mg oral tablet 2 tablets, By Mouth, Daily at bedtime, # 60 each, Refills 5, Tot. Refills 5, Maintenance, 09/03/22 17:13:00 EDT, Route to Pharmacy Electronically, [facility], 169, cm, 09/03/22 14:21:00 EDT, Height, [...] 02/09/23 23:18:00 EDT, Route to Pharmacy Electronically, [facility], 175, cm, 12/03/22 11:50:00 EDT, Height, 88.9, kg, 10/21/22 20:41:00 EDT, Dry Weight Start Date: 02/09/23 Status: Ordered Vitamin B6 50 mg oral tablet 1, tablet, By Mouth, Daily, R1., # 90 tablet, Refills 4, Maintenance, 11/16/22 13:39:00 EDT, Route to Pharmacy Electronically, [facility], 175, cm, 11/13/22 10:42:00 EDT, Height, [...] tablet, 3 Refills, Maintenance, 10/01/22 15:19:00 EDT, [facility], 176, cm, 09/07/22 8:56:00 EDT, Height, [...] Primary Care Member Role: PCP Address: Address: [address] [place] [address] Adult [place] [address]- Name: Neida Ballard RN Position: [facility] RN Member Role: Primary Care Nurse Name: Kaye Payne RN [facility] Member Role: Lifetime Consulting Provider Address: Address: [address] [place] [address]- Name: Ge Covarrubias RN [facility] Member Role: Lifetime Consulting Physician Address: Address: [address] [place] [address] [address] [facility] [place] [address]- Name: Darlene Rodrigez RN Position: [facility] RN Member Role: Primary Care Nurse Name: Kwan Mills RN Position: [facility] RN Member Role: Primary Care Nurse Name: Dolores Can RN Position: [facility] RN Member Role: Primary Care Nurse Name: Monica Rowell RN Position: [facility] RN Member Role: Primary Care Nurse Name: Jimi Fitzpatrick RN Position: S RN Member Role: Primary Care Nurse Care Team Related Persons Name: MARLEN CABEZAS Address: [place] [address] Name: MARLEN CABEZAS Address: [place] [address] Name: NICK CABEZAS Name: GEMA CABEZAS Address: [place] [address]
--- OUTSIDE RECORDS SUMMARY | 2023-12-15 20:49 | XMS_ITS | Continuity of Care Document ---
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 Phone Jany Baig DO Primary Care Physician ( [phone] Encounter [facility] Date(s): 08/11/22 - 09/10/22 [facility] [address] [place] [address]- [place] Allergies, Adverse Reactions, Alerts Substance Reaction [...] acel (oldterm) 08/02/12 Give n 1Result Comment: [facility]: [id number] 2Result Comment: [04/29/2017] [id number] 3Admin Note: FLUARIX 4Admin Note: 3 RDINJ 5Admin Note: #2 Medications acamprosate 333 mg oral delayed release tablet 1 tablet = 333 mg, By Mouth, 3 times a day, # 90 tablet, 4 Refills, Maintenance, 09/03/22 14:59:00 EDT, EC Tablet, [facility], Partial fill upon patient request if the prescription is for a schedule II opioid drug., 169, cm, 09/03/22 14:21:00... Start Date: 09/03/22 Status: Ordered amLODIPine 5 mg oral tablet See Instructions, TAKE 1 TABLET BY MOUTH ONCE A DAY^1R1, # 30 tablet, 5 Refills, Maintenance, 05/13/22 16:24:00 EST, [facility], 175, cm, 04/09/22 15:34:00 EDT, Height, 78.3, kg, 12/26/21 19:05:00 EDT, Dry Weight Start Date: 05/13/22 Status: Ordered baclofen 10 mg oral tablet See Instructions, TAKE 1 TABLET BY MOUTH THREE TIMES DAILY, # 90 tablet, Refills 0, Maintenance, 08/07/22 12:26:00 EST, Instructions Replace Required Details, Route to Pharmacy Electronically, [facility], 176, cm, 08/07/22 11:37:00 EST, Height... Start Date: 08/07/22 Status: Ordered Co Q-10 100 mg oral capsule See Instructions, TAKE 1 CAPSULE BY MOUTH FOUR TIMES DAILY, # 120 capsule, 6 Refills, Maintenance, 08/07/22 12:13:00 EST, [facility], 176, cm, 08/07/22 11:37:00 EST, [...] Gm, 11 Refills, Maintenance, 08/07/22 12:12:00 EST, [facility]/pharmacy #[id number], 30, USE 1 SPRAY(S) INTO EACH NOSTRIL TWICE A DAY, 176, cm,08/07/22 11:37:00 EST, Height, 79.8, kg, 07/31/22 2... Start Date: 08/07/22 Status: Ordered folic acid 1 mg oral tablet 1 mg, 1, tablet, By Mouth, Daily, # 90 tablet, Refills 4, Tot. Refills 4, Maintenance, 10/27/21 10:40:00 EDT, [facility], Partial fill upon patient request if the prescription is for a schedule II opioid drug.... Start Date: 10/27/21 Stop Date: 01/20/23 Status: Ordered furosemide 20 mg oral tablet 1, tablet, By Mouth, Daily, R1., # 30 tablet, Refills 5, Tot. Refills 5, Maintenance, 09/03/22 14:50:00 EDT, Route to Pharmacy Electronically, [facility], 169, cm, 09/03/22 14:21:00 EDT, Height, 69, kg, 08/16/22 1:04:00 EST, Dry Weight Start Date: 09/03/22 Status: Ordered gabapentin 300 mg oral capsule 300 mg, 1, capsule, By Mouth, 2 times a day, note dose/frequency change, # 180 capsule, Refills 4, Tot. Refills 4, Maintenance, 09/03/22 14:55:00 EDT, Route to Pharmacy Electronically, [facility], 169, cm, 09/03/22 14:21:00 EDT, Height, 69, kg... Start Date: 09/03/22 Stop Date: 11/27/23 Status: Ordered hydrOXYzine hydrochloride 25 mg oral tablet 1 TO 2 TABLETS, By Mouth, Daily at bedtime, PRN NEEDED FOR ANXIETY (VIAL), # 60 tablet, 11 Refills, Maintenance, 03/13/22 8:38:00 EDT, [facility], 175, cm, 01/06/22 10:34:00 EDT, Height, 78.3, kg, 12/26/21 19:05:00 EDT, Dry Weight Start Date: 03/13/22 Status: Ordered lactulose 10 gm/15 ml oral syrup See Instructions, TAKE 30ML BY MOUTH THREE TIMES DAILY NEEDED TO ACHEIVE 3-4 BOWL MOVEMENTS PER DAY, # 3,000 mL, 10 Refills, [facility], 30, 174, cm, 02/27/21 15:17:00 EDT, Height, 81, kg,02/27/21 14:06:00 EDT, Dry Weight Start Date: 07/02/21 Status: Ordered Lidoderm 5% film 1 patch, Topically, Daily, remove patches after 12 hours NSAIDS contraindicated High dose tylenol contraindicated remove patches after 12 hours Nueropathy, # 30 patch, 5 Refills, Maintenance, 09/03/22 16:34:00 [facility] klaudia... Start Date: 09/03/22 Status: Ordered magnesium oxide 400 mg oral tablet 1 tablet, By Mouth, 2 times a day, # 60 tablet, 11 Refills, Maintenance, 03/13/22 8:37:00 EDT, [facility], 175, cm, 01/06/22 10:34:00 EDT, Height, 78.3, kg, 12/26/21 19:05:00 EDT, Dry Weight Start Date: 03/13/22 Status: Ordered Melatonin 3 mg oral tablet 1 tablet, By Mouth, Daily at bedtime, PRN NEEDED FOR INSOMNIA (PACKAGE IN TRAY)^1R4, # 60 tablet, 5 Refills, Maintenance, 06/12/22 18:11:00 EST, [facility], 60, TAKE 1 TABLET BY [...] 09/03/22 14:53:00 EDT, Route to Pharmacy Electronically, [facility], Partial fill upon patient request if the prescription is for a schedule II opioid drug... Start Date: 09/03/22 Stop Date: 03/02/23 Status: Ordered PHENobarbital 30 mg oral tablet See Instructions, Taper 09/08-Day 1 -90mg Daily Day 2-3-60mg BID Day 4-5 30mg BID, # 15 tablet, 0 Refills, Maintenance, 09/08/22 15:05:00 EDT, [facility], Partial fill upon patient request if the prescription is for a schedule II op... Start Date: 09/08/22 Status: Ordered pyridoxine 50 mg oral tablet 50 mg, 1, tablet, By Mouth, Daily, for 90 days, # 90 tablet, Refills 4, Tot. Refills 4, Acute 01/15/23 11:42:00 EDT, 10/22/21 11:42:00 EDT, Route to Pharmacy Electronically, [facility], Partial fill upon patient request if [...] 90 tablet, 9 Refills, 08/07/22 12:27:00 EST, [facility]/pharmacy #2339, 28, 1tablet By Mouth Daily, 176, cm, 08/07/22 11:37:00 EST, Height, 79.8, kg, 07/31/22 22:40:00 EST, DryWeight Start Date: 08/07/22 Status: Ordered traZODone 50 mg oral tablet 2 tablets, By Mouth, Daily at bedtime, # 60 each, Refills 5, Tot. Refills 5, Maintenance, 09/03/22 17:13:00 EDT, Route to Pharmacy Electronically, [facility], 169, cm, 09/03/22 14:21:00 EDT, Height, 69, kg, 08/16/22 1:04:00 EST, Dry Weight Start Date: 09/03/22 Status: Ordered Vitamin B1 100 mg oral tablet 1, tablet, By Mouth, Daily, # 90 tablet, Refills 3, Maintenance, 03/13/22 8:37:00 EDT, Route to Pharmacy Electronically, [facility], 175, cm, 01/06/22 10:34:00 EDT, Height, 78.3, kg, 12/26/2218:05:00 EDT, Dry Weight Start Date: 03/13/22 Status: Ordered Xifaxan 550 mg oral tablet 1 tablet, By Mouth, 2 times a day, ^1R1,1R4., # 60 tablet, 1 Refills, Maintenance, 06/12/22 18:10:00 EST, [facility], 179, cm, 06/08/22 7:37:00 EST, [...] Care Physician Member Role: PCP Address: Address: [address] [place] [address] Adult [place] [address]- [place] Name: Neida Ballard RN Position: [facility] RN Member Role: Primary Care Nurse Name: Kaye Payne RN Position: [facility] RN Member Role: Primary Care Nurse Name: Garima Hutchinson Position: [facility] RN Member Role: [...] Member Role: Lifetime Consulting Provider Address: Address: [address] [place] [address]- Name: Ge Covarrubias RN [facility] Member Role: Lifetime Consulting Physician Address: Address: [address] [place] [address] [address] [facility] [place] [address]- Name: Darlene Rodrigez RN [facility] [...] Related Persons Name: MARLEN CABEZAS Address: home [address] [place] [id number] Name: RAULITO MARLEN Address: [address] [address] Name: NICK CABEZAS Name: GEMA CABEZAS Address: [place] [address]
--- OUTSIDE RECORDS SUMMARY | 2023-12-15 20:49 | XMS_ITS | Continuity of Care Document ---
Author Organization [facility] Address [address] [place] [address]- Care Team Providers Care Senior Sales Administrator Name Role Phone Jany Baig DO Primary Care Physician Encounter [facility] [place] Date(s): 07/02/23 - 08/01/23 [facility] [address] [place], [place] [address] Allergies, Adverse Reactions, Alerts Substance [...] (oldterm) 08/02/12 Give n 1Result Comment: [facility]: [id number] 2Result Comment: [04/29/2017] [id number] 3Admin Note: FLUARIX 4Admin Note: 3 RDINJ [...] tablet, 2 Refills, Maintenance, 07/28/23 11:06:00 EST, [facility], 175, cm, 07/28/23 9:11:00 EST, Height, 61.3, kg, 07/12/23 23:27:00 EST, Dry Weight Start Date: 07/28/23 Status: Ordered amLODIPine 5 mg oral tablet 1 tablet, By Mouth, Daily, ^1R1., # 30 tablet, 2 Refills, Maintenance, 06/02/23 8:00:00 EST, [facility], 175, cm, 03/22/23 6:50:00 EDT, [...] 07/28/23 11:10:00 EST, [facility] to [facility], [facility] [...] Dry Weight Start Date: 07/28/23 Status: Ordered cephalexin monohydrate 500 mg oral tablet 1 tablet = 500 mg, By Mouth, 4 times a day, for 7 days, # 28 tablet, 0 Refills, Acute 08/05/23 19:16:00 EST, 07/29/23 19:16:00 EST, Tablet, [facility], Partial fill upon patient request if the prescription is for a schedule II opioid drug.,... Start Date: 07/29/23 Stop Date: 08/05/23 Status: Ordered Compression Stockings See Instructions, # [...] Gm, 12 Refills, Maintenance, 07/28/23 11:06:00 EST, [facility], 28, APPLY TOPICALLY TO AFFECTED AREA(S) FOUR TIMES A DAY NEEDED FOR PA... Start Date: 07/28/23 Status: Ordered Disposable Underpads n39.498 Disposable Underpads n39.498, See Instructions, # 84 each, Refills 11, Tot. Refills 11, Maintenance, 2 daily per 6 wk period, 11/13/22 12:53:00 EDT, Compound Start Date: 11/13/22 Status: Ordered doxycycline hyclate 100 mg oral capsule 1 capsule = 100 mg, By Mouth, Every 12 hours, for 7 days, # 14 capsule, 0 Refills, Acute 08/05/23 19:21:00 EST, 07/29/23 19:21:00 EST, Capsule, [facility], Partial fill upon patient requestif the prescription is for a schedule II opioid remedios... Start Date: 07/29/23 Stop Date: 08/05/23 Status: Ordered Eucerin Eczema Relief topical cream [...] Gm, 1 Refills, Maintenance, 07/28/23 12:07:00 EST, [facility], 30, USE 1 SPRAY(S) INTO EACH [...] 07/28/23 12:08:00 EST, Route to Pharmacy Electronically, [facility], 175, cm, 07/28/23 9:11:00 EST, Height, 61.3, kg, 07/12/23 23:27:00 EST, Dry Weight Start Date: 07/28/23 Status: Ordered furosemide 20 mg oral tablet 20 mg, 1, tablet, By Mouth, Every other day, # 30 tablet, Refills 1, Tot. Refills 1, Maintenance, 07/28/23 12:08:00 EST, Route to Pharmacy Electronically, [facility], Partial fill upon patient request if the prescription is for a schedule II... Start Date: 07/28/23 Status: Ordered gabapentin 300 mg oral capsule 300 mg, 1, capsule, By Mouth, Daily at bedtime, note dose/frequency change, # 30 capsule, Refills 1, Tot. Refills 1, Maintenance, 07/28/23 12:09:00 EST, Route to Pharmacy Electronically, [facility], 175, cm, 07/28/23 9:11:00 EST, Height, [...] tablet, 3 Refills, Maintenance, 07/28/23 12:10:00 EST, [facility], 175, cm, 07/28/23 9:11:00 EST, Height, 61.3, kg,07/12/23 23:27:00 EST, Dry Weight Start Date: 07/28/23 Status: Ordered lactulose 10 gm/15 ml oral syrup 30 mL = 20 Gm, By Mouth, 3 times a day, for 30 days, # 2,700 mL, 2 Refills, Acute 10/26/23 12:13:00EDT, 07/28/23 12:13:00 EST, Syrup, [facility], Partial fill upon patient request if [...] 60 tablet, 11 Refills, Maintenance,07/28/23 12:09:00 EST, [facility], 175, cm, 07/28/23 9:11:00 EST, Height, [...] tablet, 5 Refills, Maintenance, 07/28/23 12:09:00 EST, [facility], 60, 1 tablet By Mouth Daily [...] 07/28/23 12:11:00 EST, Route to Pharmacy Electronically, [facility], 175, cm, 07/28/23 9:11:00EST, Height, 61.3, [...] 07/28/23 12:12:00 EST, Route to Pharmacy Electronically, [facility], 175, cm, 07/28/23 9:11:00 EST, Height, 61.3, kg, 07/12/23 23:27:00 EST, Dry Weight Start Date: 07/28/23 Status: Ordered spironolactone 25 mg oral tablet 1, tablet, By Mouth, Daily, ^1R2., # 30 tablet, Refills 5, Tot. Refills 5, Maintenance, 04/14/23 12:41:00 EDT, Route to Pharmacy Electronically, [facility], 175, cm, 03/22/23 6:50:00 EDT, Height, 77.5, kg, 03/20/23 11:30:00 EDT, Dry Weight Start Date: 04/14/23 Status: Ordered Tab-A-Jesse oral tablet 1 tablet, By Mouth, Daily, R1., # 30 tablet, 5 Refills, Maintenance, 05/06/23 19:16:00 EST, [facility], 30, TAKE 1 TABLET BY [...] 02/26/23 10:11:00 EDT, Route to Pharmacy Electronically, [facility], 175, cm, 12/03/22 11:50:00 EDT, Height,84, kg, 02/12/23 11:30:00 EDT, Dry Weight Start Date: 02/26/23 Status: Ordered traZODone 50 mg oral tablet 2, tablet, By Mouth, Daily at bedtime, ^2R4., # 60 tablet, Refills 5, Tot. Refills 5, Maintenance, 07/28/23 12:12:00 EST, Route to Pharmacy Electronically, [facility], 175, cm, 07/28/23 9:11:00 EST, Height, [...] 02/09/23 23:18:00 EDT, Route to Pharmacy Electronically, [facility], 175, cm, 12/03/22 11:50:00 EDT, Height, 88.9, kg, 10/21/22 20:41:00 EDT, Dry Weight Start Date: 02/09/23 Status: Ordered Vitamin B1 100 mg oral tablet 1, tablet, By Mouth, Daily, # 90 tablet, Refills 3, Tot. Refills 3, Maintenance, 07/28/23 12:12:00 EST, Route to Pharmacy Electronically, [facility], 175, cm, 07/28/23 9:11:00 EST, Height, 61.3, kg, 07/12/23 23:27:00 EST, Dry Weight Start Date: 07/28/23 Status: Ordered Vitamin B6 50 mg oral tablet 1, tablet, By Mouth, Daily, R1., # 90 tablet, Refills 4, Maintenance, 11/16/22 13:39:00 EDT, Route to Pharmacy Electronically, [facility], 175, cm, 11/13/22 10:42:00 EDT, Height, 88.9, kg, 10/21/22 20:41:00 EDT, Dry Weight Start Date: 11/16/22 Status: Ordered Vitamin B6 50 mg oral tablet 1, tablet, By Mouth, Daily, R1., # 90 tablet, Refills 4, Tot. Refills 4, Maintenance, 07/28/23 12:11:00 EST, Route to Pharmacy Electronically, [facility], 175, cm, 07/28/23 9:11:00 EST, Height, [...] each, 1 Refills, Maintenance, 07/28/23 14:33:00 EST, [facility], 175, cm, 07/28/23 9:11:00 EST, Height, [...] Team Personnel Name: Shira Galindo RN Position: [facility] RN Member Role: Primary Care Nurse Name: Lisa Nunez RN Position: S RN Member Role: Primary Care Nurse Name: Alexandra Colmenares RN Position: [facility] ED RN W/OE and Tasks Member Role: Primary Care Nurse Name: Garima Manzano RN Position: [facility] RN Member Role: Primary Care Nurse Name: Malgorzata Marinelli RN Position: S RN Member Role: Primary Care Nurse Name: Joyce Roach RN Position: [facility] ED RN W/OE and Tasks Member Role: Primary Care Nurse Name: Mary Suazo RN Position: [facility] RN Member Role: Primary Care Nurse Name: Lucina Peralta RN Position: [facility] RN Member Role: Primary Care Nurse Name: Maria Esther Craig LPN Position: S RN Member Role: Primary Care Nurse Name: Andres Pressley RN Position: [facility] ED RN W/OE and Tasks Member Role: Primary Care Nurse Name: Jany Baig DO Position: [facility] Physician - Primary Care Member Role: PCP Address: Address: [address] [place] [address] Adult & Pediatric Medicine [place], [place] [address] Name: Kaye Payne RN Position: S RN Member Role: Primary Care Nurse Name: Garima Hutchinson Position: S RN Member Role: Primary Care Nurse Name: Malgorzata Austin Position: S RN Member Role: Primary Care Nurse Name: Ibeth Adams RN Position: [facility] RN Member Role: Primary Care Nurse Name: Torrie Hernandez RN Position: [facility] OB RN Member Role: Primary Care Nurse Name: Gretchen Knutson RN Position: [facility] SN RN Member Role: Primary Care Nurse Name: Aislinn Mckee RN Position: [facility] RN Member Role: Primary Care Nurse Name: Ashley Mcelroy Position: [facility] RN Member Role: Primary Care Nurse Name: Ashok Kevin RN Position: [facility] RN Member Role: Primary Care Nurse Name: Cody Garcia Position: [facility] Associate Professional Member Role: Lifetime Consulting Provider Address: Address: [address] [place] [address] Name: Paige Nascimento RN Position: [facility] RN Member Role: Primary Care Nurse Name: eG Covarrubias RN Position: [facility] RN Member Role: Primary Care Nurse Name: Orin Elmore RN Position: [facility] ED RN W/OE and Tasks Member Role: Primary Care Nurse Name: Allegra Liu RN Position: [facility] AMB Nurse Member Role: Primary Care Nurse Name: Shayan Pandya MD Position: [facility] Renal MD Member Role: Lifetime Consulting Physician Address: Address: [address] [place] [address] [address] [facility], [address] Name: Kimberley Pittman RN Position: [facility] RN Member Role: Primary Care Nurse Name: Darlene Rodrigez RN Position: [facility] RN Member Role: Primary Care Nurse Name: Dixie Duke RN Position: [facility] RN Member Role: Primary Care Nurse Name: Kwan Mills RN Position: [facility] ED RN W/OE and Tasks Member Role: Primary Care Nurse Name: Ingrid Verdugo RN Position: [facility] RN Member Role: Primary Care Nurse Name: Monica Rowell RN Position: [facility] RN Member Role: Primary Care Nurse Name: Jimi Fitzpatrick RN Position: [facility] RN Member Role: Primary Care Nurse Care Team Related Persons Name: MARLEN CABEZAS Address: home [address] [place] [address] Name: MARLEN CABEZAS Address: home [address] [place] [address] Name: NICK CABEZAS Name: GEMA CABEZAS Address: home [address] [place] [address] Name: ELTON CHENG Address: home [address] [place] [address]
--- OUTSIDE RECORDS SUMMARY | 2023-12-15 20:49 | XMS_ITS | Continuity of Care Document ---
Author Organization [facility] Address [address] [place] [address]- Care Team Providers Care Nurse Practitioner Physicians Assistant Name Role Phone Jany Baig DO Primary Care Physician ( [phone] Encounter [facility] [place] Date(s): 11/12/22 - 12/12/22 [facility] [address] [place], [place] [address] [place] Allergies, Adverse Reactions, Alerts [...] 1Result Comment: [facility]: [id number] 2Result Comment: [04/29/2017] [id number] 3Admin Note: FLUARIX 4Admin Note: 3 RDINJ 5Admin Note: #2 Medications acamprosate 333 mg oral delayed release tablet 1 tablet = 333 mg, By Mouth, 3 times a day, # 42 tablet, 4 Refills, Maintenance, 11/05/22 11:31:00 EDT, EC Tablet, [facility], Partial fill upon patient request if the prescription is for a schedule II opioid drug., 175, cm, 11/05/22 10:21:00... Start Date: 11/05/22 Stop Date: 01/14/23 Status: Ordered amLODIPine 5 mg oral tablet 1 tablet, By Mouth, Daily, ^1R1., # 30 tablet, 2 Refills, Maintenance, 10/06/22 4:58:00 EDT, [facility], 176, cm, 09/07/22 8:56:00 EDT, Height, 82.1, kg, 09/07/22 8:59:00 EDT, Dry Weight Start Date: 10/06/22 Status: Ordered baclofen 10 mg oral tablet See Instructions, TAKE 1 TABLET BY MOUTH THREE TIMES DAILY, # 90 tablet, Refills 0, Tot. Refills 0,Maintenance, 12/01/22 16:12:00 EDT, Instructions Replace Required Details, [facility], 175, cm, 11/13/22 10:4... Start Date: 12/01/22 Status: Ordered calcium (as carbonate)-vitamin D 500 mg-400 intl units oral tablet 1 tablet, By Mouth, Daily, ^1R1., # 28 tablet, 0 Refills, Maintenance, 12/01/22 16:12:00 EDT, [facility], 28, 1 tablet By Mouth Daily,Instr:^1R1., [...] capsule, 6 Refills, Maintenance, 12/03/22 12:13:00 EDT, [facility], 175, cm, 12/03/22 11:50:00 EDT, Height, [...] 10/06/22 4:59:00 EDT, Route to Pharmacy Electronically, [facility], 176, cm, 09/07/22 8:56:00 EDT, Height, [...] 09/03/22 14:50:00 EDT, Route to Pharmacy Electronically, [facility], 169, cm, 09/03/22 14:21:00 EDT, Height, 69, kg, 08/16/22 1:04:00 EST, Dry Weight Start Date: 09/03/22 Status: Ordered gabapentin 300 mg oral capsule 300 mg, 1, capsule, By Mouth, Daily at bedtime, note dose/frequency change, # 90 capsule, Refills 4, Tot. Refills 4, Maintenance, 11/05/22 11:05:00 EDT, [facility], [facility], 175, cm, 11/05/22 10:21:00 EDT, Height, 88.9... Start Date: 11/05/22 Stop Date: 01/29/24 Status: Ordered hydrOXYzine hydrochloride 10 mg oral tablet 2 tablet, By Mouth, 2 times a day, PRN NEEDED FOR ANXIETY (VIAL), # 30 tablet, 3 Refills, Maintenance, 09/24/22 17:01:00 EDT, [facility], 176, cm, 09/07/22 8:56:00 EDT, Height, 82.1, kg, 09/07/22 8:59:00 EDT, Dry Weight Start Date: 09/24/22 Status: Ordered lactulose 10 gm/15 ml oral syrup 15 mL, By Mouth, 2 times a day, # 120 mL, 6 Refills, Maintenance, 09/22/22 12:15:00 EDT, [facility], 4, TAKE 15ML BY MOUTH TWO TIMES A DAY, 176, cm, 09/07/22 8:56:00 EDT, Height, 82.1, kg, 09/07/22 8:59:00 EDT, Dry Weight Start Date: 09/22/22 Status: Ordered Lidoderm 5% film 1 patch, Topically, Daily, remove patches after 12 hours NSAIDS contraindicated High dose tylenol contraindicated remove patches after 12 hours Nueropathy, # 30 patch, 5 Refills, Maintenance, 11/05/22 11:04:00 EDT, [facility], Partial klaudia... Start Date: 11/05/22 Status: Ordered Melatonin 3 mg oral tablet 1 tablet, By Mouth, Daily at bedtime, PRN NEEDED FOR INSOMNIA (PACKAGE IN TRAY)^1R4, # 60 tablet, 5 Refills, Maintenance, 06/12/22 18:11:00 EST, [facility], 60, TAKE 1 TABLET [...] 09/03/22 14:53:00 EDT, Route to Pharmacy Electronically, [facility], Partial fill upon patient request if [...] 11/05/22 11:31:00 EDT, Route to Pharmacy Electronically, [facility], Partial fill upon patient request if the prescription is for a schedule II opioid drug... Start Date: 11/05/22 Status: Ordered Tab-A-Jesse oral tablet 1 tablet, By Mouth, Daily, # 90 tablet, 1 Refills, 12/01/22 12:59:00 EDT, [facility], 28, 1tablet By Mouth Daily, 175, cm, 11/13/22 10:42:00 EDT, Height, 88.9, kg, 05/10/23 20:41:00 EDT, DryWeight Start Date: 12/01/22 Status: Ordered traZODone 50 mg oral tablet 2 tablets, By Mouth, Daily at bedtime, # 60 each, Refills 5, Tot. Refills 5, Maintenance, 09/03/22 17:13:00 EDT, Route to Pharmacy Electronically, [facility], 169, cm, 09/03/22 14:21:00 EDT, Height, [...] 03/13/22 8:37:00 EDT, Route to Pharmacy Electronically, [facility], 175, cm, 01/06/22 10:34:00 EDT, Height, 78.3, kg, 12/26/2218:05:00 EDT, Dry Weight Start Date: 03/13/22 Status: Ordered Vitamin B6 50 mg oral tablet 1, tablet, By Mouth, Daily, R1., # 90 tablet, Refills 4, Maintenance, 11/16/22 13:39:00 EDT, Route to Pharmacy Electronically, [facility], 175, cm, 11/13/22 10:42:00 EDT, Height, 88.9, kg, 10/21/22 20:41:00 EDT, Dry Weight Start Date: 11/16/22 Status: Ordered Voltaren 1% topical gel 1 application, Topically, 4 times a day, PRN for pain, # 100 Gm, 0 Refills, Maintenance, 12/01/22 16:12:00 EDT, Gel, [facility], Partial fill upon patient request if [...] tablet, 3 Refills, Maintenance, 10/01/22 15:19:00 EDT, [facility], 176, cm, 09/07/22 8:56:00 EDT, Height, [...] Team Personnel Name: Alexandra Colmenares RN Position: [facility] ED RN W/OE and Tasks Member Role: Primary Care Nurse Name: Garima Manzano RN Position: [facility] RN Member Role: Primary Care Nurse Name: Malgorzata Marinelli RN Position: [facility] RN Member Role: Primary Care Nurse Name: Joyce Roach RN Position: [facility] RN Member Role: Primary Care Nurse Name: Mary Suazo RN Position: [facility] RN Member Role: Primary Care Nurse Name: Andres Pressley RN Position: [facility] RN Member Role: Primary Care Nurse Name: Jany Baig DO Position: [facility] Physician - Primary Care Member Role: PCP Address: Address: [address] [place] [address] Adult [place] [address]- Name: Neida Ballard RN Position: [facility] RN Member Role: Primary Care Nurse Name: Kaye Payne RN Position: [facility] RN Member Role: Primary Care Nurse Name: Garima Hutchinson Position: [facility] RN Member Role: Primary Care Nurse Name: Malgorzata Austin Position: [facility] RN Member Role: Primary Care Nurse Name: Ibeth Adams RN Position: [facility] RN Member Role: Primary Care Nurse Name: Torrie Hernandez RN Position: [facility] OB RN Member Role: Primary Care Nurse Name: Gretchen Knutson RN Position: [facility] SN RN Member Role: Primary Care Nurse Name: Aislinn Mckee RN Position: [facility] RN Member Role: Primary Care Nurse Name: Ashley Mcelroy Position: [facility] RN Member Role: Primary Care Nurse Name: Cody Garcia Position: [facility] Associate Professional Member Role: Lifetime Consulting Provider Address: Address: [address] [place] [address]- Name: Ge Covarrubias RN Position: [facility] RN Member Role: Primary Care Nurse Name: Orin Elmore RN Position: [facility] ED RN W/OE and Tasks Member Role: Primary Care Nurse Name: Allegra Liu RN Position: [facility] AMB Nurse Member Role: Primary Care Nurse Name: Shayan Pandya MD Position: [facility] Renal MD Member Role: Lifetime Consulting Physician Address: Address: [address] [place] [address] [address] [facility] [place] [address]- Name: Darlene Rodrigez RN Position: [facility] RN Member Role: Primary Care Nurse Name: Kwan Mills RN Position: [facility] RN Member Role: Primary Care Nurse Name: Dolores Can RN Position: [facility] RN Member Role: Primary Care Nurse Name: Kim Rendon RN Position: [facility] RN Member Role: Primary Care Nurse Name: Monica Rowell RN Position: [facility] RN Member Role: Primary Care Nurse Name: Jimi Fitzpatrick RN Position: [facility] RN Member Role: Primary Care Nurse Care Team Related Persons Name: MARLEN CABEZAS Address: [place] [address] Name: MARLEN CABEZAS Address: [place] [address] Name: NICK CABEZAS Name: GEMA CABEZAS Address: [place] [address]
--- OUTSIDE RECORDS SUMMARY | 2023-12-15 20:49 | XMS_ITS | Continuity of Care Document ---
Author Organization [facility] Address [address] [place] [address]- Care Team Providers Care Astronomy Teacher Name Role Phone Jany Baig DO Primary Care Physician ( [phone] [place] [facility] [place]23 [place]/23 [facility] [address] [place] [address]- Attending Physician: Esme Sr NP Allergies, Adverse Reactions, Alerts Substance Reaction Severity [...] (oldterm) 08/02/12 Give n 1Result Comment: [facility]: 58677-621-04 2Result Comment: [04/29/2017] 14990-188-51 3Admin Note: FLUARIX 4Admin Note: 3 RDINJ 5Admin Note: #2 Medications acamprosate 333 mg oral delayed release tablet 1 tablet = 333 mg, By Mouth, 3 times a day, # 42 tablet, 4 Refills, Maintenance, 11/05/22 11:31:00 EDT, EC Tablet, [facility], Partial fill upon patient request if the prescription is for a schedule II opioid drug., 175, cm, 11/05/22 10:21:00... Start Date: 11/05/22 Stop Date: 01/14/23 Status: Ordered amLODIPine 5 mg oral tablet 1 tablet, By Mouth, Daily, ^1R1., # 30 tablet, 2 Refills, Maintenance, 06/02/23 8:00:00 EST, [facility], 175, cm, 03/22/23 6:50:00 EDT, Height, [...] 12 Refills, Maintenance, 03/24/23 10:52:00 EDT, [facility], 28, APPLY TOPICALLY TO AFFECTED [...] Gm, 1 Refills, Maintenance, 07/07/23 17:36:00 EST, [facility], 30, USE 1 SPRAY(S) INTO EACH NOSTRIL TWICE A DAY, 175, cm, 07/07/23 9:46:00 EST, Height, 80.6, kg, 07/07/23 9:1... Start Date: 07/07/23 Status: Ordered folic acid 1 mg oral tablet 1, tablet, By Mouth, Daily, ^1R1., # 30 tablet, Refills 5, Maintenance, 03/20/23 16:22:00 EDT, Route to Pharmacy Electronically, [facility], 175, cm, 03/20/23 15:31:00 EDT, Height, 77.5, kg, 03/20/23 11:30:00 EDT, Dry Weight Start Date: 03/20/23 Status: Ordered furosemide 20 mg oral tablet 20 mg, 1, tablet, By Mouth, Every other day, # 30 tablet, Refills 3, Tot. Refills 3, Maintenance, 01/28/23 12:31:00 EDT, Route to Pharmacy Electronically, [facility], Partial fill upon patient request if the prescription is for a schedule II o... Start Date: 01/28/23 Status: Ordered gabapentin 300 mg oral capsule 300 mg, 1, capsule, By Mouth, Daily at bedtime, note dose/frequency change, # 90 capsule, Refills 4, Tot. Refills 4, Maintenance, 11/05/22 11:05:00 EDT, Route to Pharmacy Electronically, [facility], 175, cm, 11/05/22 10:21:00 EDT, Height, 88.9... Start Date: 11/05/22 Stop Date: 01/29/24 Status: Ordered hydrOXYzine hydrochloride 10 mg oral tablet 2 tablet, By Mouth, 2 times a day, PRN NEEDED FOR ANXIETY (VIAL), # 30 tablet, 3 Refills, Maintenance, 04/16/23 16:41:00 EDT, [facility], 175, cm, 03/22/23 6:50:00 EDT, Height, 77.5, kg, 03/20/23 11:30:00 EDT, Dry Weight Start Date: 04/16/23 Status: Ordered lactulose 10 gm/15 ml oral syrup 15 mL, By Mouth, 2 times a day, # 120 mL, 6 Refills, Maintenance, 02/26/23 10:11:00 EDT, [facility], 4, TAKE 15ML BY MOUTH TWO TIMES A DAY, 175, cm, 12/03/22 11:50:00 EDT, Height, 84, kg, 02/12/23 11:30:00 EDT, Dry Weight Start Date: 02/26/23 Status: Ordered magnesium oxide 400 mg oral tablet See Instructions, TAKE 1 TABLET BY MOUTH TWICE A DAY^1R1,1R4, # 60 tablet, 11 Refills, Maintenance,01/28/23 12:31:00 EDT, [facility], 175, cm, 12/03/22 11:50:00 EDT, Height, 88.9, kg, 10/21/22 20:41:00 EDT, Dry Weight Start Date: 01/28/23 Status: Ordered Melatonin 3 mg oral tablet 1 tablet, By Mouth, Daily at bedtime, PRN NEEDED FOR INSOMNIA (PACKAGE IN TRAY)^1R4, # 60 tablet, 5 Refills, Maintenance, 04/16/23 16:41:00 EDT, [facility], 60, TAKE 1 TABLET BY [...] 02/26/23 10:11:00 EDT, Route to Pharmacy Electronically, [facility], 175, cm, 12/03/22 11:50:00 EDT, Height, [...] 04/14/23 12:41:00 EDT, Route to Pharmacy Electronically, [facility], 175, cm, 03/22/23 6:50:00 EDT, Height, 77.5, kg, 03/20/23 11:30:00 EDT, Dry Weight Start Date: 04/14/23 Status: Ordered Tab-A-Jesse oral tablet 1 tablet, By Mouth, Daily, R1., # 30 tablet, 5 Refills, Maintenance, 05/06/23 19:16:00 EST, [facility], 30, TAKE 1 TABLET BY MOUTH ONCE A DAY^1R1, 175, cm, 03/22/23 6:50:00 EDT, Height, 77.5,kg, 03/20/23 11:30:00 EDT, Dry Weight Start Date: 05/06/23 Status: Ordered traZODone 50 mg oral tablet 2, tablet, By Mouth, Daily at bedtime, ^2R4., # 60 tablet, Refills 5, Maintenance, 02/26/23 10:11:00 EDT, Route to Pharmacy Electronically, [facility], 175, cm, 12/03/22 11:50:00 EDT, Height,84, [...] 02/09/23 23:18:00 EDT, Route to Pharmacy Electronically, [facility], 175, cm, 12/03/22 11:50:00 EDT, Height, 88.9, kg, 10/21/22 20:41:00 EDT, Dry Weight Start Date: 02/09/23 Status: Ordered Vitamin B6 50 mg oral tablet 1, tablet, By Mouth, Daily, R1., # 90 tablet, Refills 4, Maintenance, 11/16/22 13:39:00 EDT, Route to Pharmacy Electronically, [facility], 175, cm, 11/13/22 10:42:00 EDT, Height, [...] each, 1 Refills, Maintenance, 06/30/23 12:59:00 EST, [facility], 175, cm, 03/22/23 6:50:00 EDT, Height, [...] Team Personnel Name: Alexandra Colmenares RN Position: [facility] ED RN W/OE and Tasks Member Role: Primary Care Nurse Name: Garima Manzano RN Position: [facility] RN Member Role: Primary Care Nurse Name: Malgorzata Marinelli RN Position: S RN Member Role: Primary Care Nurse Name: Joyce Roach RN Position: [facility] ED RN W/OE and Tasks Member Role: Primary Care Nurse Name: Mary Suazo RN Position: [facility] RN Member Role: Primary Care Nurse Name: Andres Pressley RN Position: [facility] ED RN W/OE and Tasks Member Role: Primary Care Nurse Name: Jany Baig DO Position: S Physician - Primary Care Member Role: PCP Address: Address: [address] [place] [address] Adult & Pediatric [place], [place] [address] Name: Kaye Payne RN Position: S RN Member Role: Primary Care Nurse Name: Garima Hutchinson Position: S RN Member Role: Primary Care Nurse Name: Malgorzata Austin Position: [facility] RN Member Role: Primary Care Nurse Name: Ibeth Adams RN Position: [facility] RN Member Role: Primary Care Nurse Name: Torrie Hernandez RN Position: [facility] OB RN Member Role: Primary Care Nurse Name: Gretchen Knutson RN Position: [facility] SN RN Member Role: Primary Care Nurse Name: Aislinn Mckee RN Position: [facility] RN Member Role: Primary Care Nurse Name: Ashley Mcelroy Position: [facility] RN Member Role: Primary Care Nurse Name: Ashok Kevin RN Position: [facility] RN Member Role: Primary Care Nurse Name: Cody Garcia Position: [facility] Associate Professional Member Role: Lifetime Consulting Provider Address: Address: [address] [place] [address]- Name: Paige Nascimento RN Position: [facility] RN Member Role: Primary Care Nurse Name: Ge Covarrubias RN Position: [facility] RN Member Role: Primary Care Nurse Name: Orin Elmore RN Position: [facility] ED RN W/OE and Tasks Member Role: Primary Care Nurse Name: Allegra Liu RN Position: [facility] AMB Nurse Member Role: Primary Care Nurse Name: Shayan Pandya MD Position: [facility] Renal MD Member Role: Lifetime Consulting Physician Address: Address: [address] [place] [address] [address] [facility], [place] [address]- Name: Darlene Rodrigez RN Position: [facility] RN Member Role: Primary Care Nurse Name: Dolores Can RN Position: [facility] RN Member Role: Primary Care Nurse Name: Ingrid Verdugo RN Position: [facility] RN Member Role: Primary Care Nurse Name: Monica Rowell RN Position: [facility] RN Member Role: Primary Care Nurse Name: Jimi Fitzpatrick RN Position: [facility] RN Member Role: Primary Care Nurse Care Team Related Persons Name: MARLEN CABEZAS Address: home [address] [place] [address] Name: MARLEN CABEZAS Address: home [address] [place] [address] Name: DUCBRIANNICK [place] Name: GEMA CABEZAS Address: home [address] [place] [id number]
--- OUTSIDE RECORDS SUMMARY | 2023-12-15 20:49 | XMS_ITS | Continuity of Care Document ---
Author Organization 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 [address] [place] [address]- Attending Physician: Anna EYE CLINIC MANAGER, Christine Allergies, Adverse Reactions, Alerts Substance Reaction [...] n 1Result Comment: [facility]: [id number] 2Result Comment: [04/29/2017] [id number] 3Admin Note: FLUARIX 4Admin Note: 3 RDINJ 5Admin Note: #2 Medications acetaminophen 500 mg oral tablet 1 tablet, By Mouth, 4 times a day, PRN NEEDED FOR PAIN, MAX 4, PER DAY (VIAL., # 50 tablet, 11 Refills, Maintenance, 03/13/22 8:37:00 EDT, [facility], 175, cm, 01/06/22 10:34:00 EDT, Height, 78.3, kg, 12/26/21 19:05:00 EDT, Dry Weight Start Date: 03/13/22 Status: Ordered amLODIPine 5 mg oral tablet See Instructions, TAKE 1 TABLET BY MOUTH ONCE A DAY^1R1, # 30 tablet, 5 Refills, Maintenance, 05/13/22 16:24:00 EST, [facility], 175, cm, 04/09/22 15:34:00 EDT, Height, 78.3, kg, 12/26/21 19:05:00 EDT, Dry Weight Start Date: 05/13/22 Status: Ordered baclofen 10 mg oral tablet See Instructions, TAKE 1 TABLET BY MOUTH THREE TIMES DAILY, # 90 tablet, Refills 0, Maintenance, 08/07/22 12:26:00 EST, Instructions Replace Required Details, Route to Pharmacy Electronically, [facility], 176, cm, 08/07/22 11:37:00 EST, Height... Start Date: 08/07/22 Status: Ordered Co Q-10 100 mg oral capsule See Instructions, TAKE 1 CAPSULE BY MOUTH FOUR TIMES DAILY, # 120 capsule, 6 Refills, Maintenance, 08/07/22 12:13:00 EST, [facility], 176, cm, 08/07/22 11:37:00 EST, Height, [...] 08/07/22 12:12:00 EST, [facility]/pharmacy #[id number], 30, USE 1 SPRAY(S) INTO EACH NOSTRIL TWICE A DAY, 176, cm,08/07/22 11:37:00 EST, Height, 79.8, kg, 07/31/22 2... Start Date: 08/07/22 Status: Ordered folic acid 1 mg oral tablet 1 mg, 1, tablet, By Mouth, Daily, # 90 tablet, Refills 4, Tot. Refills 4, Maintenance, 10/27/21 10:40:00 EDT, Route to Pharmacy Electronically, [facility], Partial fill upon patient request if the prescription is for a schedule II opioid drug.... Start Date: 10/27/21 Stop Date: 01/20/23 Status: Ordered furosemide 20 mg oral tablet See Instructions, TAKE 1 TABLET BY MOUTH ONCE A DAY^1R1, # 30 tablet, Refills 2, Maintenance, 08/07/22 12:27:00 EST, Instructions Replace Required Details, Route to Pharmacy Electronically, [facility], 176, cm, 08/07/22 11:37:00 EST, Height, 7... Start Date: 08/07/22 Status: Ordered furosemide 20 mg oral tablet 1, tablet, By Mouth, Daily, R1., # 30 tablet, Refills 5, Tot. Refills 5, Maintenance, 07/18/22 7:52:00 EST, Route to Pharmacy Electronically, [facility], 179, cm, 07/01/22 13:29:00 EST, Height, 84, kg, 06/01/22 12:27:00 EST, Dry Weight Start Date: 07/18/22 Status: Ordered gabapentin 300 mg oral capsule 300 mg, 1, capsule, By Mouth, 3 times a day, # 90 capsule, Refills 4, Tot. Refills 4, Maintenance, 08/07/22 12:12:00 EST, Route to Pharmacy Electronically, [facility]/pharmacy #[id number], Partial fill upon patient request if the prescription is for a schedule II... Start Date: 08/07/22 Stop Date: 01/04/23 Status: Ordered hydrOXYzine hydrochloride 25 mg oral tablet 1 TO 2 TABLETS, By Mouth, Daily at bedtime, PRN NEEDED FOR ANXIETY (VIAL), # 60 tablet, 11 Refills, Maintenance, 03/13/22 8:38:00 EDT, [facility], 175, cm, 01/06/22 10:34:00 EDT, Height, 78.3, kg, 12/26/21 19:05:00 EDT, Dry Weight Start Date: 03/13/22 Status: Ordered lactulose 10 gm/15 ml oral syrup See Instructions, TAKE 30ML BY MOUTH THREE TIMES DAILY NEEDED TO ACHEIVE 3-4 BOWL MOVEMENTS PER DAY, # 3,000 mL, 10 Refills, [facility], 30, TAKE 30ML BY MOUTH THREE TIMES DAILY NEEDED TO ACHEIVE 3-4 BOWL MOVEMENTS PER DAY, 174, cm, 02/12... Start Date: 07/02/21 Status: Ordered Lidoderm 5% film 1 patch, Topically, Daily, remove patches after 12 hours NSAIDS contraindicated High dose tylenol contraindicated remove patches after 12 hours Rib fracture, # 30 patch, 5 Refills, Maintenance, 08/07/22 12:09:00 EST, [facility]/pharmacy #[id number], Partial f... Start Date: 08/07/22 Status: Ordered magnesium oxide 400 mg oral tablet 1 tablet, By Mouth, 2 times a day, # 60 tablet, 11 Refills, Maintenance, 03/13/22 8:37:00 EDT, [facility], 175, cm, 01/06/22 10:34:00 EDT, Height, 78.3, kg, 12/26/21 19:05:00 EDT, Dry Weight Start Date: 03/13/22 Status: Ordered Melatonin 3 mg oral tablet 1 tablet, By Mouth, Daily at bedtime, PRN NEEDED FOR INSOMNIA (PACKAGE IN TRAY)^1R4, # 60 tablet, 5 Refills, Maintenance, 06/12/22 18:11:00 EST, [facility], 60, TAKE 1 TABLET BY MOUTH [...] 08/07/22 12:14:00 EST, Route to Pharmacy Electronically, [facility]/pharmacy #[id number], Partial fill upon patient requestif the prescription is for a schedule II opioid remedios... Start Date: 08/07/22 Stop Date: 02/03/23 Status: Ordered Potassium Chloride (Eqv-K-Tab) 20 mEq oral tablet, extended release 2 tablet, By Mouth, Daily, # 180 tablet, 1 Refills, Maintenance, 05/13/22 9:48:00 EST, [facility], 175, cm, 04/09/22 15:34:00 EDT, Height, 78.3, kg, 12/26/21 19:05:00 EDT, Dry Weight Start Date: 05/13/22 Stop Date: 11/09/22 Status: Ordered pyridoxine 50 mg oral tablet 50 mg, 1, tablet, By Mouth, Daily, for 90 days, # 90 tablet, Refills 4, Tot. Refills 4, Acute 01/15/23 11:42:00 EDT, 10/22/21 11:42:00 EDT, Route to Pharmacy Electronically, [facility], Partial fill upon patient request if [...] 0 Refills, Maintenance, 08/01/22 16:17:00 EST, Tablet, [facility]/pharmacy #[id number], Partial fill upon patient request if the prescription is for a schedule II opioid drug., 176, cm, 08/01/22 15:52:00 EST, Height... Start Date: 08/01/22 Stop Date: 08/20/22 Status: Ordered traZODone 50 mg oral tablet 2 TO 3 TABLETS, By Mouth, Daily at bedtime, #28 VIAL)^2R4., # 90 tablet, Refills 5, Maintenance, 06/12/22 18:11:00 EST, Route to Pharmacy Electronically, [facility], 179, cm, 06/08/22 7:37:00EST, Height, 84, kg, 06/01/22 12:27:00 EST, Dry Weight Start Date: 06/12/22 Status: Ordered Vitamin B1 100 mg oral tablet 1, tablet, By Mouth, Daily, # 90 tablet, Refills 3, Maintenance, 03/13/22 8:37:00 EDT, Route to Pharmacy Electronically, [facility], 175, cm, 01/06/22 10:34:00 EDT, Height, 78.3, kg, 12/26/2218:05:00 EDT, Dry Weight Start Date: 03/13/22 Status: Ordered Xifaxan 550 mg oral tablet 1 tablet, By Mouth, 2 times a day, ^1R1,1R4., # 60 tablet, 1 Refills, Maintenance, 06/12/22 18:10:00 EST, [facility], 179, cm, 06/08/22 7:37:00 EST, Height, [...] Care Nurse Name: Danyel Davis RN [facility] RN Member Role: Primary Care Nurse Name: Andres Pressley RN [facility]: [facility] RN Member Role: Primary Care Nurse Name: Jany Baig DO Position: [facility] Primary Care Physician Member Role: PCP Address: Address: [address] [place] [address] Adult [place] [address]- Name: Neida Ballard RN Position: [facility] [...] Member Role: Lifetime Consulting Provider Address: Address: [address] [place] [address]- Name: Ge Covarrubias RN Position: [facility] RN Member Role: Primary Care Nurse Name: Orin Elmore RN Position: [facility] ED RN W/OE and Tasks Member Role: Primary Care Nurse Name: Allegra Liu RN Position: [facility] PCO RN Member Role: Primary Care Nurse Name: Shayan Pandya MD Position: [facility] Renal MD Member Role: Lifetime Consulting Physician Address: Address: [address] [facility] [facility] [address] [facility], [place] [address]- Name: Darlene Rodrigez RN Position: [facility] [...] Related Persons Name: MARLEN CABEZAS Address: home [address] [place] [address] Name: MARLEN CABEZAS Address: home [address] [place] [address] Name: NICK CABEZAS Name: GEMA CABEZAS Address: home [address] [place] [address]
--- OUTSIDE RECORDS SUMMARY | 2023-12-15 20:49 | XMS_ITS | Continuity of Care Document ---
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 Inspector Name Role Phone Jany Baig DO Primary Care Physician Encounter [facility] [place] Date(s): 11/10/22 - 12/10/22 [facility] [address] [place], [place] [address] Allergies, Adverse Reactions, Alerts Substance Reaction [...] acel (oldterm) 08/02/12 Give n 1Result Comment: [facility]: [id number] 2Result Comment: [04/29/2017] [id number] 3Admin Note: FLUARIX 4Admin Note: 3 RDINJ 5Admin Note: #2 Medications acamprosate 333 mg oral delayed release tablet 1 tablet = 333 mg, By Mouth, 3 times a day, # 42 tablet, 4 Refills, Maintenance, 11/05/22 11:31:00 EDT, EC Tablet, [facility], Partial fill upon patient request if the prescription is for a schedule II opioid drug., 175, cm, 11/05/22 10:21:00... Start Date: 11/05/22 Stop Date: 01/14/23 Status: Ordered amLODIPine 5 mg oral tablet 1 tablet, By Mouth, Daily, ^1R1., # 30 tablet, 2 Refills, Maintenance, 10/06/22 4:58:00 EDT, [facility], 176, cm, 09/07/22 8:56:00 EDT, Height, 82.1, kg, 09/07/22 8:59:00 EDT, Dry Weight Start Date: 10/06/22 Status: Ordered baclofen 10 mg oral tablet See Instructions, TAKE 1 TABLET BY MOUTH THREE TIMES DAILY, # 90 tablet, Refills 0, Tot. Refills 0,Maintenance, 12/01/22 16:12:00 EDT, Instructions Replace Required Details, [facility], [facility], 175, cm, 11/13/22 10:4... Start Date: 12/01/22 Status: Ordered calcium (as carbonate)-vitamin D 500 mg-400 intl units oral tablet 1 tablet, By Mouth, Daily, ^1R1., # 28 tablet, 0 Refills, Maintenance, 12/01/22 16:12:00 EDT, [facility], 28, 1 tablet By Mouth [...] capsule, 6 Refills, Maintenance, 12/03/22 12:13:00 EDT, [facility], 175, cm, 12/03/22 11:50:00 EDT, Height, [...] 11 Refills, Maintenance, 08/07/22 12:12:00 EST, [facility]/pharmacy #[id number], 30, USE 1 SPRAY(S) INTO EACH NOSTRIL TWICE A DAY, 176, cm,08/07/22 11:37:00 EST, Height, 79.8, kg, 07/31/22 2... Start Date: 08/07/22 Status: Ordered folic acid 1 mg oral tablet 1, tablet, By Mouth, Daily, R1., # 30 tablet, Refills 5, Tot. Refills 5, Maintenance, 10/06/22 4:59:00 EDT, Route to Pharmacy Electronically, [facility], 176, cm, 09/07/22 8:56:00 EDT, Height, [...] 09/03/22 14:50:00 EDT, Route to Pharmacy Electronically, [facility], 169, cm, 09/03/22 14:21:00 EDT, Height, 69, kg, 08/16/22 1:04:00 EST, Dry Weight Start Date: 09/03/22 Status: Ordered gabapentin 300 mg oral capsule 300 mg, 1, capsule, By Mouth, Daily at bedtime, note dose/frequency change, # 90 capsule, Refills 4, Tot. Refills 4, Maintenance, 11/05/22 11:05:00 EDT, [facility], [facility], 175, cm, 11/05/22 10:21:00 EDT, Height, 88.9... Start Date: 11/05/22 Stop Date: 01/29/24 Status: Ordered hydrOXYzine hydrochloride 10 mg oral tablet 2 tablet, By Mouth, 2 times a day, PRN NEEDED FOR ANXIETY (VIAL), # 30 tablet, 3 Refills, Maintenance, 09/24/22 17:01:00 EDT, [facility], 176, cm, 09/07/22 8:56:00 EDT, Height, 82.1, kg, 09/07/22 8:59:00 EDT, Dry Weight Start Date: 09/24/22 Status: Ordered lactulose 10 gm/15 ml oral syrup 15 mL, By Mouth, 2 times a day, # 120 mL, 6 Refills, Maintenance, 09/22/22 12:15:00 EDT, [facility], 4, TAKE 15ML BY MOUTH TWO TIMES A DAY, 176, cm, 09/07/22 8:56:00 EDT, Height, 82.1, kg, 09/07/22 8:59:00 EDT, Dry Weight Start Date: 09/22/22 Status: Ordered Lidoderm 5% film 1 patch, Topically, Daily, remove patches after 12 hours NSAIDS contraindicated High dose tylenol contraindicated remove patches after 12 hours Nueropathy, # 30 patch, 5 Refills, Maintenance, 11/05/22 11:04:00 EDT, [facility], Partial klaudia... Start Date: 11/05/22 Status: Ordered Melatonin 3 mg oral tablet 1 tablet, By Mouth, Daily at bedtime, PRN NEEDED FOR INSOMNIA (PACKAGE IN TRAY)^1R4, # 60 tablet, 5 Refills, Maintenance, 06/12/22 18:11:00 EST, [facility], 60, TAKE 1 TABLET BY [...] 09/03/22 14:53:00 EDT, Route to Pharmacy Electronically, [facility], Partial fill upon patient request if [...] 11/05/22 11:31:00 EDT, Route to Pharmacy Electronically, [facility], Partial fill upon patient request if [...] 09/03/22 17:13:00 EDT, Route to Pharmacy Electronically, [facility], 169, cm, 09/03/22 14:21:00 EDT, Height, [...] 03/13/22 8:37:00 EDT, Route to Pharmacy Electronically, [facility], 175, cm, 01/06/22 10:34:00 EDT, Height, 78.3, kg, 12/26/2218:05:00 EDT, Dry Weight Start Date: 03/13/22 Status: Ordered Vitamin B6 50 mg oral tablet 1, tablet, By Mouth, Daily, R1., # 90 tablet, Refills 4, Maintenance, 11/16/22 13:39:00 EDT, Route to Pharmacy Electronically, [facility], 175, cm, 11/13/22 10:42:00 EDT, Height, 88.9, kg, 10/21/22 20:41:00 EDT, Dry Weight Start Date: 11/16/22 Status: Ordered Voltaren 1% topical gel 1 application, Topically, 4 times a day, PRN for pain, # 100 Gm, 0 Refills, Maintenance, 12/01/22 16:12:00 EDT, Gel, [facility], Partial fill upon patient request if [...] tablet, 3 Refills, Maintenance, 10/01/22 15:19:00 EDT, [facility], 176, cm, 09/07/22 8:56:00 EDT, Height, [...] Care Nurse Name: Mary Suazo RN Position: [facility] RN Member Role: Primary Care Nurse Name: Andres Pressley RN Position: [facility] RN Member Role: Primary Care Nurse Name: Jany Baig DO Position: [facility] Physician - Primary Care Member Role: PCP Address: Address: [address] [place] [address] Adult [place] [address]- Name: Neida Ballard RN [facility] Member Role: Lifetime Consulting Provider Address: Address: [address] [place] [address]- Name: Ge Covarrubias RN Position: [facility] RN Member Role: Primary Care Nurse Name: Orin Elmore RN Position: [facility] ED RN W/OE and Tasks Member Role: Primary Care Nurse Name: Allegra Liu RN Position: [facility] AMB Nurse Member Role: Primary Care Nurse Name: Shayan Pandya MD Position: [facility] Renal MD Member Role: Lifetime Consulting Physician Address: Address: [address] [place] [address] [address] [facility] [place] [address]- Name: Darlene Rodrigez RN [facility] [...] Team Related Persons Name: MARLEN CABEZAS Address: [place] [address] Name: MARLEN CABEZAS Address: [place] [address] Name: NICK CABEZAS Name: GEMA CABEZAS Address: [place] [address]
--- OUTSIDE RECORDS SUMMARY | 2023-12-15 20:49 | XMS_ITS | Continuity of Care Document ---
Author Organization [facility] Address [address] [place] [address]- Care Team Providers Care Retail Solar Advisor Name Role Phone Jany Baig DO Primary Care Physician ( [phone] Encounter [facility] Date(s): 10/27/22 - 11/26/22 [facility] [address] [place], [place] [address] Allergies, Adverse Reactions, Alerts [...] n 1Result Comment: [facility]: [id number] 2Result Comment: [04/29/2017] [id number] 3Admin Note: FLUARIX 4Admin Note: 3 RDINJ 5Admin Note: #2 Medications acamprosate 333 mg oral delayed release tablet 1 tablet = 333 mg, By Mouth, 3 times a day, # 42 tablet, 4 Refills, Maintenance, 11/05/22 11:31:00 EDT, EC Tablet, [facility], Partial fill upon patient request if the prescription is for a schedule II opioid drug., 175, cm, 11/05/22 10:21:00... Start Date: 11/05/22 Stop Date: 01/14/23 Status: Ordered amLODIPine 5 mg oral tablet 1 tablet, By Mouth, Daily, ^1R1., # 30 tablet, 2 Refills, Maintenance, 10/06/22 4:58:00 EDT, [facility], 176, cm, 09/07/22 8:56:00 EDT, Height, 82.1, kg, 09/07/22 8:59:00 EDT, Dry Weight Start Date: 10/06/22 Status: Ordered baclofen 10 mg oral tablet See Instructions, TAKE 1 TABLET BY MOUTH THREE TIMES DAILY, # 90 tablet, Refills 0, Maintenance, 08/07/22 12:26:00 EST, Instructions Replace Required Details, [facility], 176, cm, 08/07/22 11:37:00 EST, Height... Start Date: 08/07/22 Status: Ordered calcium (as carbonate)-vitamin D 500 mg-400 intl units oral tablet 1 tablet, By Mouth, Daily, ^1R1., # 28 tablet, 0 Refills, Maintenance, 10/08/22 16:58:00 EDT, [facility], 28, TAKE ONE TABLET BY MOUTH [...] capsule, 6 Refills, Maintenance, 08/07/22 12:13:00 EST, [facility], 176, cm, 08/07/22 11:37:00 EST, [...] Gm, 11 Refills, Maintenance, 08/07/22 12:12:00 EST, [facility]/pharmacy #[id number], 30, USE 1 SPRAY(S) INTO EACH NOSTRIL TWICE A DAY, 176, cm,08/07/22 11:37:00 EST, Height, 79.8, kg, 07/31/22 2... Start Date: 08/07/22 Status: Ordered folic acid 1 mg oral tablet 1, tablet, By Mouth, Daily, R1., # 30 tablet, Refills 5, Tot. Refills 5, Maintenance, 10/06/22 4:59:00 EDT, Route to Pharmacy Electronically, [facility], 176, cm, 09/07/22 8:56:00 EDT, Height, [...] 09/03/22 14:50:00 EDT, [facility], [facility], 169, cm, 09/03/22 14:21:00 EDT, Height, 69, kg, 08/16/22 1:04:00 EST, Dry Weight Start Date: 09/03/22 Status: Ordered gabapentin 300 mg oral capsule 300 mg, 1, capsule, By Mouth, Daily at bedtime, note dose/frequency change, # 90 capsule, Refills 4, Tot. Refills 4, Maintenance, 11/05/22 11:05:00 EDT, Route to Pharmacy Electronically, [facility], 175, cm, 11/05/22 10:21:00 EDT, Height, 88.9... Start Date: 11/05/22 Stop Date: 01/29/24 Status: Ordered hydrOXYzine hydrochloride 10 mg oral tablet 2 tablet, By Mouth, 2 times a day, PRN NEEDED FOR ANXIETY (VIAL), # 30 tablet, 3 Refills, Maintenance, 09/24/22 17:01:00 EDT, [facility], 176, cm, 09/07/22 8:56:00 EDT, Height, 82.1, kg, 09/07/22 8:59:00 EDT, Dry Weight Start Date: 09/24/22 Status: Ordered lactulose 10 gm/15 ml oral syrup 15 mL, By Mouth, 2 times a day, # 120 mL, 6 Refills, Maintenance, 09/22/22 12:15:00 EDT, [facility], 4, TAKE 15ML BY MOUTH TWO TIMES A DAY, 176, cm, 09/07/22 8:56:00 EDT, Height, 82.1, kg, 09/07/22 8:59:00 EDT, Dry Weight Start Date: 09/22/22 Status: Ordered Lidoderm 5% film 1 patch, Topically, Daily, remove patches after 12 hours NSAIDS contraindicated High dose tylenol contraindicated remove patches after 12 hours Nueropathy, # 30 patch, 5 Refills, Maintenance, 11/05/22 11:04:00 EDT, [facility], Partial klaudia... Start Date: 11/05/22 Status: Ordered Melatonin 3 mg oral tablet 1 tablet, By Mouth, Daily at bedtime, PRN NEEDED FOR INSOMNIA (PACKAGE IN TRAY)^1R4, # 60 tablet, 5 Refills, Maintenance, 06/12/22 18:11:00 EST, [facility], 60, TAKE 1 TABLET BY [...] 09/03/22 14:53:00 EDT, [facility], Partial fill upon patient request [...] 11/05/22 11:31:00 EDT, Route to Pharmacy Electronically, [facility], Partial fill upon patient request if the prescription is for a schedule II opioid drug... Start Date: 11/05/22 Status: Ordered Tab-A-Jesse oral tablet 1 tablet, By Mouth, Daily, # 90 tablet, 9 Refills, 08/07/22 12:27:00 EST, [facility]/pharmacy #[id number], 28, 1tablet By Mouth Daily, 176, cm, 08/07/22 11:37:00 EST, Height, 79.8, kg, 07/31/22 22:40:00 EST, DryWeight Start Date: 08/07/22 Status: Ordered traZODone 50 mg oral tablet 2 tablets, By Mouth, Daily at bedtime, # 60 each, Refills 5, Tot. Refills 5, Maintenance, 09/03/22 17:13:00 EDT, Route to Pharmacy Electronically, [facility], 169, cm, 09/03/22 14:21:00 EDT, Height, [...] 03/13/22 8:37:00 EDT, Route to Pharmacy Electronically, [facility], 175, cm, 01/06/22 10:34:00 EDT, Height, 78.3, kg, 12/26/2218:05:00 EDT, Dry Weight Start Date: 03/13/22 Status: Ordered Vitamin B6 50 mg oral tablet 1, tablet, By Mouth, Daily, R1., # 90 tablet, Refills 4, Maintenance, 11/16/22 13:39:00 EDT, Route to Pharmacy Electronically, [facility], 175, cm, 11/13/22 10:42:00 EDT, Height, 88.9, kg, 10/21/22 20:41:00 EDT, Dry Weight Start Date: 11/16/22 Status: Ordered Voltaren 1% topical gel 1 application, Topically, 4 times a day, PRN for pain, # 100 Gm, 0 Refills, Maintenance, 11/13/22 11:22:00 EDT, Gel, [facility], Partial fill upon patient request if the prescription is for aschedule II opioid drug., 1 application Topically 4... Start Date: 11/13/22 Status: Ordered Walker See Instructions, # 1 each, Maintenance, 2 wheeled Walker. Dx: Falls, gait abnormality, 10/24/22 10:07:00 EDT, Supply Start Date: 10/24/22 Status: Ordered Xifaxan 550 mg oral tablet 1 tablet, By Mouth, 2 times a day, ^1R1,1R4., # 60 tablet, 3 Refills, Maintenance, 10/01/22 15:19:00 EDT, [facility], 176, cm, 09/07/22 8:56:00 EDT, Height, [...] Team Personnel Name: Alexandra Colmenares RN Position: [facility] ED RN W/OE and Tasks Member Role: Primary Care Nurse Name: Garima Manzano RN Position: S RN Member Role: Primary Care Nurse Name: Malgorzata Marinelli RN Position: [facility] RN Member Role: Primary Care Nurse Name: Joyce Roach RN Position: [facility] RN Member Role: Primary Care Nurse Name: Mary Suazo RN Position: [facility] RN Member Role: Primary Care Nurse Name: Andres Pressley RN Position: [facility] RN Member Role: Primary Care Nurse Name: Jany Baig DO Position: [facility] Physician - Primary Care Member Role: PCP Address: Address: [address] [place] [address] Adult & Pediatric Medicine [address] Name: Neida Ballard RN Position: [facility] RN Member Role: Primary Care Nurse Name: Kaye Payne RN Position: [facility] RN Member Role: Primary Care Nurse Name: Garima Hutchinson Position: [facility] RN Member Role: Primary Care Nurse Name: Malgorzata Austin Position: [facility] RN Member Role: Primary Care Nurse Name: Ibeth Adams RN Position: [facility] RN Member Role: Primary Care Nurse Name: Torrie Hernandez RN Position: [facility] OB RN Member Role: Primary Care Nurse Name: Gretchen Knutson RN Position: [facility] SN RN Member Role: Primary Care Nurse Name: Aislinn Mckee RN Position: [facility] RN Member Role: Primary Care Nurse Name: Ashley Mcelroy Position: [facility] RN Member Role: Primary Care Nurse Name: Cody Garcia Position: [facility] Associate Professional Member Role: Lifetime Consulting Provider Address: Address: [address] [place] [address] Name: Ge Covarrubias RN Position: [facility] RN Member Role: Primary Care Nurse Name: Orin Elmore RN Position: [facility] ED RN W/OE and Tasks Member Role: Primary Care Nurse Name: Allegra Liu RN Position: [facility] AMB Nurse Member Role: Primary Care Nurse Name: Shayan Pandya MD Position: [facility] Renal MD Member Role: Lifetime Consulting Physician Address: Address: [address] [place] [address] [address] [facility] [place] [address]- Name: Darlene Rodrigez RN Position: [facility] RN Member Role: Primary Care Nurse Name: Kwan Mills RN Position: S RN Member Role: Primary Care Nurse Name: Dolores Can RN Position: S RN Member Role: Primary Care Nurse Name: iKm Rendon RN Position: S RN Member Role: Primary Care Nurse Name: Monica Rowell RN Position: [facility] RN Member Role: Primary Care Nurse Name: Jimi Fitzpatrick RN Position: [facility] RN Member Role: Primary Care Nurse Care Team Related Persons Name: MARLEN CABEZAS Address: [place] [address] Name: MARLEN CABEZAS Address: [place] [address] Name: NICK CABEZAS Name: GEMA CABEZAS Address: [place] [address]
--- OUTSIDE RECORDS SUMMARY | 2023-12-15 20:49 | XMS_ITS | Continuity of Care Document ---
Author Organization [facility] Address [address] [place] [address]- Care Team Providers Care Cosmetic Sales Advisor Name Role Phone Jany Baig DO Primary Care Physician [place] [facility] [place]s): 05/20/23 - 06/19/23 [facility] [address] [place] [address]- Allergies, Adverse Reactions, Alerts Substance Reaction Severity [...] (oldterm) 08/02/12 Give n 1Result Comment: [facility]: [id number] 2Result Comment: [04/29/2017] [id number] 3Admin Note: FLUARIX 4Admin Note: 3 RDINJ 5Admin Note: #2 Medications acamprosate 333 mg oral delayed release tablet 1 tablet = 333 mg, By Mouth, 3 times a day, # 42 tablet, 4 Refills, Maintenance, 11/05/22 11:31:00 EDT, EC Tablet, [facility], Partial fill upon patient request if the prescription is for a schedule II opioid drug., 175, cm, 11/05/22 10:21:00... Start Date: 11/05/22 Stop Date: 01/14/23 Status: Ordered amLODIPine 5 mg oral tablet 1 tablet, By Mouth, Daily, ^1R1., # 30 tablet, 2 Refills, Maintenance, 06/02/23 8:00:00 EST, [facility], 175, cm, 03/22/23 6:50:00 EDT, Height, 77.5, kg, 03/20/23 11:30:00 EDT, Dry Weight Start Date: 06/02/23 Status: Ordered baclofen 10 mg oral tablet See Instructions, TAKE ONE TABLET BY MOUTH THREE TIMES A DAY ^1R1,1R2,1R4, # 90 tablet, Refills 5, Tot. Refills 5, Maintenance, 01/14/23 17:55:00 EDT, Instructions Replace Required Details, [facility], [facility], 175, cm... Start Date: 01/14/23 Status: [...] tablet, 0 Refills, Maintenance, 12/01/22 16:12:00 EDT, [facility], 28, 1 tablet By Mouth Daily,Instr:^1R1., [...] capsule, 6 Refills, Maintenance, 12/03/22 12:13:00 EDT, [facility], 175, cm, 12/03/22 11:50:00 EDT, Height, [...] Gm, 12 Refills, Maintenance, 03/24/23 10:52:00 EDT, [facility], 28, APPLY TOPICALLY TO AFFECTED AREA(S) [...] Gm, 11 Refills, Maintenance, 08/07/22 12:12:00 EST, [facility]/pharmacy #[id number], 30, USE 1 SPRAY(S) INTO EACH NOSTRIL TWICE A DAY, 176, cm,08/07/22 11:37:00 EST, Height, 79.8, kg, 07/31/22 2... Start Date: 08/07/22 Status: Ordered folic acid 1 mg oral tablet 1, tablet, By Mouth, Daily, ^1R1., # 30 tablet, Refills 5, Maintenance, 03/20/23 16:22:00 EDT, Route to Pharmacy Electronically, [facility], 175, cm, 03/20/23 15:31:00 EDT, Height, 77.5, kg, 03/20/23 11:30:00 EDT, Dry Weight Start Date: 03/20/23 Status: Ordered furosemide 20 mg oral tablet 20 mg, 1, tablet, By Mouth, Every other day, # 30 tablet, Refills 3, Tot. Refills 3, Maintenance, 01/28/23 12:31:00 EDT, Route to Pharmacy Electronically, [facility], Partial fill upon patient request if the prescription is for a schedule II o... Start Date: 01/28/23 Status: Ordered gabapentin 300 mg oral capsule 300 mg, 1, capsule, By Mouth, Daily at bedtime, note dose/frequency change, # 90 capsule, Refills 4, Tot. Refills 4, Maintenance, 11/05/22 11:05:00 EDT, Route to Pharmacy Electronically, [facility], 175, cm, 11/05/22 10:21:00 EDT, Height, 88.9... Start Date: 11/05/22 Stop Date: 01/29/24 Status: Ordered hydrOXYzine hydrochloride 10 mg oral tablet 2 tablet, By Mouth, 2 times a day, PRN NEEDED FOR ANXIETY (VIAL), # 30 tablet, 3 Refills, Maintenance, 04/16/23 16:41:00 EDT, [facility], 175, cm, 03/22/23 6:50:00 EDT, Height, 77.5, kg, 03/20/23 11:30:00 EDT, Dry Weight Start Date: 04/16/23 Status: Ordered lactulose 10 gm/15 ml oral syrup 15 mL, By Mouth, 2 times a day, # 120 mL, 6 Refills, Maintenance, 02/26/23 10:11:00 EDT, [facility], 4, TAKE 15ML BY MOUTH TWO TIMES A DAY, 175, cm, 12/03/22 11:50:00 EDT, Height, 84, kg, 02/12/23 11:30:00 EDT, Dry Weight Start Date: 02/26/23 Status: Ordered magnesium oxide 400 mg oral tablet See Instructions, TAKE 1 TABLET BY MOUTH TWICE A DAY^1R1,1R4, # 60 tablet, 11 Refills, Maintenance,01/28/23 12:31:00 EDT, [facility], 175, cm, 12/03/22 11:50:00 EDT, Height, 88.9, kg, 10/21/22 20:41:00 EDT, Dry Weight Start Date: 01/28/23 Status: Ordered Melatonin 3 mg oral tablet 1 tablet, By Mouth, Daily at bedtime, PRN NEEDED FOR INSOMNIA (PACKAGE IN TRAY)^1R4, # 60 tablet, 5 Refills, Maintenance, 04/16/23 16:41:00 EDT, [facility], 60, TAKE 1 TABLET BY MOUTH [...] Pharmacy Electronically, [facility], 175, cm, 12/03/22 11:50:00 EDT, Height, [...] 04/14/23 12:41:00 EDT, Route to Pharmacy Electronically, [facility], 175, cm, 03/22/23 6:50:00 EDT, Height, 77.5, kg, 03/20/23 11:30:00 EDT, Dry Weight Start Date: 04/14/23 Status: Ordered Tab-A-Jesse oral tablet 1 tablet, By Mouth, Daily, R1., # 30 tablet, 5 Refills, Maintenance, 05/06/23 19:16:00 EST, [facility], 30, TAKE 1 TABLET BY MOUTH ONCE A DAY^1R1, 175, cm, 03/22/23 6:50:00 EDT, Height, 77.5,kg, 03/20/23 11:30:00 EDT, Dry Weight Start Date: 05/06/23 Status: Ordered traZODone 50 mg oral tablet 2, tablet, By Mouth, Daily at bedtime, ^2R4., # 60 tablet, Refills 5, Maintenance, 02/26/23 10:11:00 EDT, Route to Pharmacy Electronically, [facility], 175, cm, 12/03/22 11:50:00 EDT, Height,84, [...] 02/09/23 23:18:00 EDT, Route to Pharmacy Electronically, [facility], 175, cm, 12/03/22 11:50:00 EDT, Height, 88.9, kg, 10/21/22 20:41:00 EDT, Dry Weight Start Date: 02/09/23 Status: Ordered Vitamin B6 50 mg oral tablet 1, tablet, By Mouth, Daily, R1., # 90 tablet, Refills 4, Maintenance, 11/16/22 13:39:00 EDT, Route to Pharmacy Electronically, [facility], 175, cm, 11/13/22 10:42:00 EDT, Height, [...] tablet, 0 Refills, Maintenance, 06/08/23 14:59:00 EST, [facility], 175, cm, 03/22/23 6:50:00 EDT, Height, [...] Name: Alexandra Colmenares RN Position: [facility] ED RN W/OE and Tasks Member Role: Primary Care Nurse Name: Garima Manzano RN Position: [facility] RN Member Role: Primary Care Nurse Name: Malgorzata Marinelli RN Position: [facility] RN Member Role: Primary Care Nurse Name: Joyce Roach RN Position: [facility] ED RN W/OE and Tasks Member Role: Primary Care Nurse Name: Mary Suazo RN Position: [facility] RN Member Role: Primary Care Nurse Name: Andres Pressley RN Position: [facility] ED RN W/OE and Tasks Member Role: Primary Care Nurse Name: Jany Baig DO Position: [facility] Physician - Primary Care Member Role: PCP Address: Address: [address] [place] [address] Adult [place] [address]- Name: Kaye Payne RN Position: [facility] RN Member Role: Primary Care Nurse Name: Garima Hutchinson Position: [facility] RN Member Role: Primary Care Nurse Name: Malgorzata Austin Position: [facility] RN Member Role: Primary Care Nurse Name: Ibeth Adams RN Position: [facility] RN Member Role: Primary Care Nurse Name: Torrie Hernandez RN Position: [facility] OB RN Member Role: Primary Care Nurse Name: Gretchen Knutson RN Position: [facility] SN RN Member Role: Primary Care Nurse Name: Aislinn Mckee RN Position: [facility] RN Member Role: Primary Care Nurse Name: Ashley Mcelroy Position: [facility] RN Member Role: Primary Care Nurse Name: Ashok Kevin RN Position: [facility] RN Member Role: Primary Care Nurse Name: Cody Garcia Position: [facility] Associate Professional Member Role: Lifetime Consulting Provider Address: Address: [address] [place] [address]- Name: Paige Nascimento RN Position: [facility] RN Member Role: Primary Care Nurse Name: Ge Covarrubias RN Position: [facility] RN Member Role: Primary Care Nurse Name: Orin Elmore RN Position: [facility] ED RN W/OE and Tasks Member Role: Primary Care Nurse Name: Allegra Liu RN Position: [facility] AMB Nurse Member Role: Primary Care Nurse Name: Shayan Pandya MD Position: [facility] Renal MD Member Role: Lifetime Consulting Physician Address: Address: [address] [facility] [place] [address]- Name: Darlene Rodrigez RN Position: [facility] RN Member Role: Primary Care Nurse Name: Dolores Can RN Position: [facility] RN Member Role: Primary Care Nurse Name: Ingrid Verdugo RN Position: [facility] RN Member Role: Primary Care Nurse Name: Monica Rowell RN Position: [facility] RN Member Role: Primary Care Nurse Name: Jimi Fitzpatrick RN Position: [facility] RN Member Role: Primary Care Nurse Care Team Related Persons Name: MARLEN CABEZAS Address: [address] [place] [address] Name: MARLEN CABEZAS Address: [address] [place] [address] Name: NICK CABEZAS Name: GEMA CABEZAS Address: [address] [place] [address]
--- OUTSIDE RECORDS SUMMARY | 2023-12-15 20:49 | XMS_ITS | Continuity of Care Document ---
Author Organization [facility] Address [address] [place] [address]- Care Team Providers Care Non Licensed Operator Name Role Phone Jany Baig DO Primary Care Physician [place] [facility] [place] 07/09/23 - 08/08/23 [facility] [address], [place] [address] Allergies, Adverse Reactions, Alerts Substance Reaction Severity [...] Give n 1Result Comment: [facility]: 19692-335-12 2Result Comment: [04/29/2017] 75706-900-50 3Admin Note: FLUARIX 4Admin Note: 3 RDINJ [...] tablet, 2 Refills, Maintenance, 07/28/23 11:06:00 EST, [facility], 175, cm, 07/28/23 9:11:00 EST, Height, 61.3, kg, 07/12/23 23:27:00 EST, Dry Weight Start Date: 07/28/23 Status: Ordered amLODIPine 5 mg oral tablet 1 tablet, By Mouth, Daily, ^1R1., # 30 tablet, 2 Refills, Maintenance, 06/02/23 8:00:00 EST, [facility], 175, cm, 03/22/23 6:50:00 [...] 07/28/23 11:10:00 EST, Route to Pharmacy Electronically, [facility], Partial fill upon patient request if [...] Gm, 12 Refills, Maintenance, 07/28/23 11:06:00 EST, [facility], 28, APPLY TOPICALLY TO AFFECTED AREA(S) [...] Gm, 1 Refills, Maintenance, 07/28/23 12:07:00 EST, [facility], 30, USE 1 SPRAY(S) INTO EACH [...] 07/28/23 12:09:00 EST, Route to Pharmacy Electronically, [facility], 175, cm, 07/28/23 9:11:00 EST, Height, [...] tablet, 3 Refills, Maintenance, 07/28/23 12:10:00 EST, [facility], 175, cm, 07/28/23 9:11:00 EST, Height, 61.3, kg,07/12/23 23:27:00 EST, Dry Weight Start Date: 07/28/23 Status: Ordered lactulose 10 gm/15 ml oral syrup 30 mL = 20 Gm, By Mouth, 3 times a day, for 30 days, # 2,700 mL, 2 Refills, Acute 10/26/23 12:13:00EDT, 07/28/23 12:13:00 EST, Syrup, [facility], Partial fill upon patient request if [...] 60 tablet, 11 Refills, Maintenance,07/28/23 12:09:00 EST, [facility], 175, cm, 07/28/23 9:11:00 EST, Height, [...] tablet, 5 Refills, Maintenance, 07/28/23 12:09:00 EST, [facility], 60, 1 tablet By Mouth Daily [...] 07/28/23 12:11:00 EST, Route to Pharmacy Electronically, [facility], 175, cm, 07/28/23 9:11:00EST, Height, 61.3, [...] 07/28/23 12:12:00 EST, Route to Pharmacy Electronically, [facility], 175, cm, 07/28/23 9:11:00 EST, Height, 61.3, kg, 07/12/23 23:27:00 EST, Dry Weight Start Date: 07/28/23 Status: Ordered spironolactone 25 mg oral tablet 1, tablet, By Mouth, Daily, ^1R2., # 30 tablet, Refills 5, Tot. Refills 5, Maintenance, 04/14/23 12:41:00 EDT, Route to Pharmacy Electronically, [facility], 175, cm, 03/22/23 6:50:00 EDT, Height, 77.5, kg, 03/20/23 11:30:00 EDT, Dry Weight Start Date: 04/14/23 Status: Ordered Tab-A-Jesse oral tablet 1 tablet, By Mouth, Daily, R1., # 30 tablet, 5 Refills, Maintenance, 05/06/23 19:16:00 EST, [facility], 30, TAKE 1 TABLET [...] 10:11:00 EDT, Route to Pharmacy Electronically, [facility], 175, cm, 12/03/22 11:50:00 EDT, Height,84, kg, 02/12/23 11:30:00 EDT, Dry Weight Start Date: 02/26/23 Status: Ordered traZODone 50 mg oral tablet 2, tablet, By Mouth, Daily at bedtime, ^2R4., # 60 tablet, Refills 5, Tot. Refills 5, Maintenance, 07/28/23 12:12:00 EST, Route to Pharmacy Electronically, [facility], 175, cm, 07/28/23 9:11:00 EST, Height, [...] 23:18:00 EDT, Route to Pharmacy Electronically, [facility], 175, cm, 12/03/22 11:50:00 EDT, Height, 88.9, kg, 10/21/22 20:41:00 EDT, Dry Weight Start Date: 02/09/23 Status: Ordered Vitamin B1 100 mg oral tablet 1, tablet, By Mouth, Daily, # 90 tablet, Refills 3, Tot. Refills 3, Maintenance, 07/28/23 12:12:00 EST, Route to Pharmacy Electronically, [facility], 175, cm, 07/28/23 9:11:00 EST, Height, 61.3, kg, 07/12/23 23:27:00 EST, Dry Weight Start Date: 07/28/23 Status: Ordered Vitamin B6 50 mg oral tablet 1, tablet, By Mouth, Daily, R1., # 90 tablet, Refills 4, Maintenance, 11/16/22 13:39:00 EDT, Route to Pharmacy Electronically, [facility], 175, cm, 11/13/22 10:42:00 EDT, Height, 88.9, kg, 10/21/22 20:41:00 EDT, Dry Weight Start Date: 11/16/22 Status: Ordered Vitamin B6 50 mg oral tablet 1, tablet, By Mouth, Daily, R1., # 90 tablet, Refills 4, Tot. Refills 4, Maintenance, 07/28/23 12:11:00 EST, Route to Pharmacy Electronically, [facility], 175, cm, 07/28/23 9:11:00 EST, Height, [...] each, 1 Refills, Maintenance, 07/28/23 14:33:00 EST, [facility], 175, cm, 07/28/23 9:11:00 EST, Height, [...] Care Nurse Name: Alexandra Colmenares RN Position: [facility] ED RN W/OE and Tasks Member Role: Primary Care Nurse Name: Garima Manzano RN Position: [facility] RN Member Role: Primary Care Nurse Name: Malgorzata Marinelli RN Position: [facility] RN Member Role: Primary Care Nurse Name: Joyce Roach RN Position: [facility] ED RN W/OE and Tasks Member Role: Primary Care Nurse Name: Mary Suazo RN Position: [facility] RN Member Role: Primary Care Nurse Name: Lucina Peralta RN Position: [facility] RN Member Role: Primary Care Nurse Name: Maria Esther Craig LPN Position: [facility] RN Member Role: Primary Care Nurse Name: Andres Pressley RN Position: [facility] ED RN W/OE and Tasks Member Role: Primary Care Nurse Name: Jany Baig DO Position: [facility] Physician - Primary Care Member Role: PCP Address: Address: [address] [place] [address] [place] [address]- Name: Kaye Payne RN Position: [facility] RN Member Role: Primary Care Nurse Name: Garima Curry RN Position: [facility] RN Member Role: Primary Care Nurse Name: Malgorzata Austin Position: [facility] RN Member Role: Primary Care Nurse Name: Ibeth dAams RN Position: [facility] RN Member Role: Primary Care Nurse Name: Torrie Hernandez RN Position: [facility] OB RN Member Role: Primary Care Nurse Name: Gretchen Knutson RN Position: [facility] SN RN Member Role: Primary Care Nurse Name: Aislinn Mckee RN Position: [facility] RN Member Role: Primary Care Nurse Name: Ashley Mcelroy Position: [facility] RN Member Role: Primary Care Nurse Name: Ashok Kevin RN Position: [facility] RN Member Role: Primary Care Nurse Name: Cody Garcia Position: [facility] Associate Professional Member Role: Lifetime Consulting Provider Address: Address: [address] [place] [id number]- Name: Paige Nascimento RN Position: [facility] RN Member Role: Primary Care Nurse Name: Ge Covarrubias RN Position: [facility] RN Member Role: Primary Care Nurse Name: Orin Elmore RN Position: [facility] ED RN W/OE and Tasks Member Role: Primary Care Nurse Name: Noe LOUIE, Allegra Elliott Position: [facility] AMB Nurse Member Role: Primary Care Nurse Name: Shayan Pandya MD Position: [facility] Renal MD Member Role: Lifetime Consulting Physician Address: Address: [address] [facility] [place] [address]- Name: Kimberley Pittman RN Position: [facility] RN Member Role: Primary Care Nurse Name: Darlene Rodrigez RN Position: [facility] RN Member Role: Primary Care Nurse Name: Dixie Duke RN Position: [facility] RN Member Role: Primary Care Nurse Name: Kwan Mills RN Position: [facility] ED RN W/OE and Tasks Member Role: Primary Care Nurse Name: Ingrid Verdugo RN Position: [facility] RN Member Role: Primary Care Nurse Name: Monica Rowell RN Position: [facility] RN Member Role: Primary Care Nurse Name: Jimi Fitzpatrick RN Position: [facility] RN Member Role: Primary Care Nurse Care Team Related Persons Name: DUCBRIANWUMARLEN Address: [address] [place] [address] Name: MARLEN CABEZAS Address: [address] [place] [address] Name: NICK CABEZAS Name: GEMA CABEZAS Address: home [address] [place] [address] Name: ELTON CHENG Address: home [address] [place] [id number]
--- OUTSIDE RECORDS SUMMARY | 2023-12-15 20:49 | XMS_ITS | Continuity of Care Document ---
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 Role Phone Jany Baig DO Primary Care Physician Encounter [facility] Date(s): 07/29/23 - 08/28/23 [facility] [address] [place], [place] [address] Allergies, Adverse Reactions, Alerts Substance [...] n 1Result Comment: [facility]: [id number] 2Result Comment: [04/29/2017] [id number] 3Admin Note: FLUARIX 4Admin Note: 3 RDINJ 5Admin Note: #2 Medications acamprosate 333 mg oral delayed release tablet 2 tablet = 666 mg, By Mouth, 3 times a day, # 180 tablet, 1 Refills, Maintenance, 07/28/23 11:04:00EST, EC Tablet, [facility], Partial fill upon patient request if [...] tablet, 2 Refills, Maintenance, 07/28/23 11:06:00 EST, [facility], 175, cm, 07/28/23 9:11:00 EST, Height, 61.3, kg, 07/12/23 23:27:00 EST, Dry Weight Start Date: 07/28/23 Status: Ordered amLODIPine 5 mg oral tablet 1 tablet, By Mouth, Daily, ^1R1., # 30 tablet, 2 Refills, Maintenance, 06/02/23 8:00:00 EST, [facility], 175, cm, 03/22/23 [...] 07/28/23 11:10:00 EST, Route to Pharmacy Electronically, [facility], Partial fill upon patient request if [...] Gm, 12 Refills, Maintenance, 07/28/23 11:06:00 EST, [facility], 28, APPLY TOPICALLY TO AFFECTED AREA(S) [...] Gm, 1 Refills, Maintenance, 07/28/23 12:07:00 EST, [facility], 30, USE 1 SPRAY(S) INTO EACH [...] 07/28/23 12:08:00 EST, Route to Pharmacy Electronically, [facility], 175, cm, 07/28/23 9:11:00 EST, Height, 61.3, kg, 07/12/23 23:27:00 EST, Dry Weight Start Date: 07/28/23 Status: Ordered furosemide 20 mg oral tablet 20 mg, 1, tablet, By Mouth, Every other day, # 30 tablet, Refills 1, Tot. Refills 1, Maintenance, 07/28/23 12:08:00 EST, Route to Pharmacy Electronically, [facility], Partial fill upon patient request if the prescription is for a schedule II... Start Date: 07/28/23 Status: Ordered gabapentin 300 mg oral capsule 300 mg, 1, capsule, By Mouth, Daily at bedtime, note dose/frequency change, # 30 capsule, Refills 1, Tot. Refills 1, Maintenance, 07/28/23 12:09:00 EST, Route to Pharmacy Electronically, [facility], 175, cm, 07/28/23 9:11:00 EST, Height, [...] tablet, 3 Refills, Maintenance, 07/28/23 12:10:00 EST, [facility], 175, cm, 07/28/23 9:11:00 EST, Height, 61.3, kg,07/12/23 23:27:00 EST, Dry Weight Start Date: 07/28/23 Status: Ordered lactulose 10 gm/15 ml oral syrup 30 mL = 20 Gm, By Mouth, 3 times a day, for 30 days, # 2,700 mL, 2 Refills, Acute 10/26/23 12:13:00EDT, 07/28/23 12:13:00 EST, Syrup, [facility], Partial fill upon patient request if [...] 60 tablet, 11 Refills, Maintenance,07/28/23 12:09:00 EST, [facility], 175, cm, 07/28/23 9:11:00 EST, Height, [...] tablet, 5 Refills, Maintenance, 07/28/23 12:09:00 EST, [facility], 60, 1 tablet By Mouth Daily [...] 07/28/23 12:11:00 EST, Route to Pharmacy Electronically, [facility], 175, cm, 07/28/23 9:11:00EST, Height, 61.3, [...] 07/28/23 12:12:00 EST, Route to Pharmacy Electronically, [facility], 175, cm, 07/28/23 9:11:00 EST, Height, 61.3, kg, 07/12/23 23:27:00 EST, Dry Weight Start Date: 07/28/23 Status: Ordered spironolactone 25 mg oral tablet 1, tablet, By Mouth, Daily, ^1R2., # 30 tablet, Refills 5, Tot. Refills 5, Maintenance, 04/14/23 12:41:00 EDT, Route to Pharmacy Electronically, [facility], 175, cm, 03/22/23 6:50:00 EDT, Height, 77.5, kg, 03/20/23 11:30:00 EDT, Dry Weight Start Date: 04/14/23 Status: Ordered Tab-A-Jesse oral tablet 1 tablet, By Mouth, Daily, R1., # 30 tablet, 5 Refills, Maintenance, 05/06/23 19:16:00 EST, [facility], 30, TAKE 1 [...] 02/26/23 10:11:00 EDT, Route to Pharmacy Electronically, [facility], 175, cm, 12/03/22 11:50:00 EDT, Height,84, kg, 02/12/23 11:30:00 EDT, Dry Weight Start Date: 02/26/23 Status: Ordered traZODone 50 mg oral tablet 2, tablet, By Mouth, Daily at bedtime, ^2R4., # 60 tablet, Refills 5, Tot. Refills 5, Maintenance, 07/28/23 12:12:00 EST, Route to Pharmacy Electronically, [facility], 175, cm, 07/28/23 9:11:00 EST, Height, [...] 02/09/23 23:18:00 EDT, Route to Pharmacy Electronically, [facility], 175, cm, 12/03/22 11:50:00 EDT, Height, 88.9, kg, 10/21/22 20:41:00 EDT, Dry Weight Start Date: 02/09/23 Status: Ordered Vitamin B1 100 mg oral tablet 1, tablet, By Mouth, Daily, # 90 tablet, Refills 3, Tot. Refills 3, Maintenance, 07/28/23 12:12:00 EST, Route to Pharmacy Electronically, [facility], 175, cm, 07/28/23 9:11:00 EST, Height, 61.3, kg, 07/12/23 23:27:00 EST, Dry Weight Start Date: 07/28/23 Status: Ordered Vitamin B6 50 mg oral tablet 1, tablet, By Mouth, Daily, R1., # 90 tablet, Refills 4, Maintenance, 11/16/22 13:39:00 EDT, Route to Pharmacy Electronically, [facility], 175, cm, 11/13/22 10:42:00 EDT, Height, 88.9, kg, 10/21/22 20:41:00 EDT, Dry Weight Start Date: 11/16/22 Status: Ordered Vitamin B6 50 mg oral tablet 1, tablet, By Mouth, Daily, R1., # 90 tablet, Refills 4, Tot. Refills 4, Maintenance, 07/28/23 12:11:00 EST, Route to Pharmacy Electronically, [facility], 175, cm, 07/28/23 9:11:00 EST, Height, [...] each, 1 Refills, Maintenance, 07/28/23 14:33:00 EST, [facility], 175, cm, 07/28/23 9:11:00 EST, Height, [...] Care Nurse Name: Garima Manzano RN Position: [facility] RN Member Role: Primary Care Nurse Name: Malgorzata Marinelli RN Position: [facility] RN Member Role: Primary Care Nurse Name: Joyce Roach RN Position: [facility] ED RN W/OE and Tasks Member Role: Primary Care Nurse Name: Mary Suazo RN Position: [facility] RN Member Role: Primary Care Nurse Name: Lucina Peralta RN Position: [facility] RN Member Role: Primary Care Nurse Name: Maria Esther Craig LPN Position: [facility] RN Member Role: Primary Care Nurse Name: Andres Pressley RN Position: [facility] ED RN W/OE and Tasks Member Role: Primary Care Nurse Name: Jany Baig DO Position: [facility] Physician - Primary Care Member Role: PCP Address: Address: [address] [place] [address] Adult [place] [address]- Name: Kaye Payne RN Position: [facility] RN Member Role: Primary Care Nurse Name: Garima Curry RN Position: [facility] RN Member Role: Primary Care Nurse Name: Malgorzata Austin Position: [facility] RN Member Role: Primary Care Nurse Name: Ibeth Adams RN Position: [facility] RN Member Role: Primary Care Nurse Name: Torrie Hernandez RN Position: [facility] OB RN Member Role: Primary Care Nurse Name: Gretchen Knutson RN Position: [facility] SN RN Member Role: Primary Care Nurse Name: Aislinn Mckee RN Position: [facility] RN Member Role: Primary Care Nurse Name: Ashley Mcelroy Position: [facility] RN Member Role: Primary Care Nurse Name: Ashok Kevin RN Position: [facility] RN Member Role: Primary Care Nurse Name: Cody Garcia Position: [facility] Associate Professional Member Role: Lifetime Consulting Provider Address: Address: [address] [place] [address]- Name: Paige Nascimento RN Position: [facility] RN Member Role: Primary Care Nurse Name: Ge Covarrubias RN Position: [facility] RN Member Role: Primary Care Nurse Name: Orin Elmore RN Position: [facility] ED RN W/OE and Tasks Member Role: Primary Care Nurse Name: Allegra Liu RN Position: [facility] AMB Nurse Member Role: Primary Care Nurse Name: Shayan Pandya MD Position: [facility] Renal MD Member Role: Lifetime Consulting Physician Address: Address: [address] [facility] [address] [facility] [place] [address]- Name: Kimberley Pittman RN Position: [facility] RN Member Role: Primary Care Nurse Name: Darlene Rodrigez RN Position: [facility] RN Member Role: Primary Care Nurse Name: Dixie Duke RN Position: [facility] RN Member Role: Primary Care Nurse Name: Kwan Mills RN Position: [facility] ED RN W/OE and Tasks Member Role: Primary Care Nurse Name: Ingrid Verdugo RN Position: [facility] RN Member Role: Primary Care Nurse Name: Monica Rowell RN Position: [facility] RN Member Role: Primary Care Nurse Name: Jimi Fitzpatrick RN Position: [facility] RN Member Role: Primary Care Nurse Care Team Related Persons Name: RAULITO MARLEN Address: [address] [place] [address] Name: MARLEN CABEZAS Address: [address] [place] [address] Name: NICK CABEZAS Name: GEMA CABEZAS Address: [address] [place] [address] Name: ELTON CHENG Address: home [address] [place] [id number]
--- OUTSIDE RECORDS SUMMARY | 2023-12-15 20:50 | XMS_ITS | Continuity of Care Document ---
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 Role Phone Jany Baig DO Primary Care Physician Encounter [facility] Date(s): 05/10/23 - 06/19/23 [facility] [address] [place] [id number]- Attending Physician: Terry Washington MD Admitting Physician: Terry Washington MD Referring Physician: Jany Baig DO Allergies, [...] Comment: [facility]: [id number] 2Result Comment: [04/29/2017] [id number] 3Admin Note: FLUARIX 4Admin Note: 3 RDINJ 5Admin Note: #2 Medications acamprosate 333 mg oral delayed release tablet 1 tablet = 333 mg, By Mouth, 3 times a day, # 42 tablet, 4 Refills, Maintenance, 11/05/22 11:31:00 EDT, EC Tablet, [facility], Partial fill upon patient request if the prescription is for a schedule II opioid drug., 175, cm, 11/05/22 10:21:00... Start Date: 11/05/22 Stop Date: 01/14/23 Status: Ordered amLODIPine 5 mg oral tablet 1 tablet, By Mouth, Daily, ^1R1., # 30 tablet, 2 Refills, Maintenance, 06/02/23 8:00:00 EST, [facility], 175, cm, 03/22/23 6:50:00 EDT, Height, 77.5, kg, 03/20/23 11:30:00 EDT, Dry Weight Start Date: 06/02/23 Status: Ordered baclofen 10 mg oral tablet See Instructions, TAKE ONE TABLET BY MOUTH THREE TIMES A DAY ^1R1,1R2,1R4, # 90 tablet, Refills 5, Tot. Refills 5, Maintenance, 01/14/23 17:55:00 EDT, Instructions Replace Required Details, Route to Pharmacy Electronically, [facility], 175, cm... Start Date: [...] tablet, 0 Refills, Maintenance, 12/01/22 16:12:00 EDT, [facility], 28, 1 tablet By [...] capsule, 6 Refills, Maintenance, 12/03/22 12:13:00 EDT, [facility], 175, cm, 12/03/22 11:50:00 [...] Gm, 12 Refills, Maintenance, 03/24/23 10:52:00 EDT, [facility], 28, APPLY TOPICALLY TO AFFECTED AREA(S) [...] 11 Refills, Maintenance, 08/07/22 12:12:00 EST, [facility]/pharmacy #[id number], 30, USE 1 SPRAY(S) INTO EACH NOSTRIL TWICE A DAY, 176, cm,08/07/22 11:37:00 EST, Height, 79.8, kg, 07/31/22 2... Start Date: 08/07/22 Status: Ordered folic acid 1 mg oral tablet 1, tablet, By Mouth, Daily, ^1R1., # 30 tablet, Refills 5, Maintenance, 03/20/23 16:22:00 EDT, Route to Pharmacy Electronically, [facility], 175, cm, 03/20/23 15:31:00 EDT, Height, 77.5, kg, 03/20/23 11:30:00 EDT, Dry Weight Start Date: 03/20/23 Status: Ordered furosemide 20 mg oral tablet 20 mg, 1, tablet, By Mouth, Every other day, # 30 tablet, Refills 3, Tot. Refills 3, Maintenance, 01/28/23 12:31:00 EDT, Route to Pharmacy Electronically, [facility], Partial fill upon patient request if the prescription is for a schedule II o... Start Date: 01/28/23 Status: Ordered gabapentin 300 mg oral capsule 300 mg, 1, capsule, By Mouth, Daily at bedtime, note dose/frequency change, # 90 capsule, Refills 4, Tot. Refills 4, Maintenance, 11/05/22 11:05:00 EDT, Route to Pharmacy Electronically, [facility], 175, cm, 11/05/22 10:21:00 EDT, Height, 88.9... Start Date: 11/05/22 Stop Date: 01/29/24 Status: Ordered hydrOXYzine hydrochloride 10 mg oral tablet 2 tablet, By Mouth, 2 times a day, PRN NEEDED FOR ANXIETY (VIAL), # 30 tablet, 3 Refills, Maintenance, 04/16/23 16:41:00 EDT, [facility], 175, cm, 03/22/23 6:50:00 EDT, Height, 77.5, kg, 03/20/23 11:30:00 EDT, Dry Weight Start Date: 04/16/23 Status: Ordered lactulose 10 gm/15 ml oral syrup 15 mL, By Mouth, 2 times a day, # 120 mL, 6 Refills, Maintenance, 02/26/23 10:11:00 EDT, [facility], 4, TAKE 15ML BY MOUTH TWO TIMES A DAY, 175, cm, 12/03/22 11:50:00 EDT, Height, 84, kg, 02/12/23 11:30:00 EDT, Dry Weight Start Date: 02/26/23 Status: Ordered magnesium oxide 400 mg oral tablet See Instructions, TAKE 1 TABLET BY MOUTH TWICE A DAY^1R1,1R4, # 60 tablet, 11 Refills, Maintenance,01/28/23 12:31:00 EDT, [facility], 175, cm, 12/03/22 11:50:00 EDT, Height, 88.9, kg, 10/21/22 20:41:00 EDT, Dry Weight Start Date: 01/28/23 Status: Ordered Melatonin 3 mg oral tablet 1 tablet, By Mouth, Daily at bedtime, PRN NEEDED FOR INSOMNIA (PACKAGE IN TRAY)^1R4, # 60 tablet, 5 Refills, Maintenance, 04/16/23 16:41:00 EDT, [facility], 60, TAKE 1 TABLET [...] 02/26/23 10:11:00 EDT, Route to Pharmacy Electronically, [facility], 175, cm, 12/03/22 11:50:00 [...] 04/14/23 12:41:00 EDT, Route to Pharmacy Electronically, [facility], 175, cm, 03/22/23 6:50:00 EDT, Height, 77.5, kg, 03/20/23 11:30:00 EDT, Dry Weight Start Date: 04/14/23 Status: Ordered Tab-A-Jesse oral tablet 1 tablet, By Mouth, Daily, R1., # 30 tablet, 5 Refills, Maintenance, 05/06/23 19:16:00 EST, [facility], 30, TAKE 1 TABLET BY MOUTH ONCE A DAY^1R1, 175, cm, 03/22/23 6:50:00 EDT, Height, 77.5,kg, 03/20/23 11:30:00 EDT, Dry Weight Start Date: 05/06/23 Status: Ordered traZODone 50 mg oral tablet 2, tablet, By Mouth, Daily at bedtime, ^2R4., # 60 tablet, Refills 5, Maintenance, 02/26/23 10:11:00 EDT, [facility], 175, cm, 12/03/22 11:50:00 EDT, Height,84, [...] 02/09/23 23:18:00 EDT, Route to Pharmacy Electronically, [facility], 175, cm, 12/03/22 11:50:00 EDT, Height, 88.9, kg, 10/21/22 20:41:00 EDT, Dry Weight Start Date: 02/09/23 Status: Ordered Vitamin B6 50 mg oral tablet 1, tablet, By Mouth, Daily, R1., # 90 tablet, Refills 4, Maintenance, 11/16/22 13:39:00 EDT, Route to Pharmacy Electronically, [facility], 175, cm, 11/13/22 10:42:00 EDT, [...] tablet, 0 Refills, Maintenance, 06/08/23 14:59:00 EST, [facility], 175, cm, 03/22/23 6:50:00 EDT, [...] Name: Alexandra Colmenares RN Position: [facility] ED RN W/OE and Tasks Member Role: Primary Care Nurse Name: Garima Manzano RN Position: [facility] RN Member Role: Primary Care Nurse Name: Malgorzata Marinelli RN Position: [facility] RN Member Role: Primary Care Nurse Name: Joyce Roach RN Position: [facility] ED RN W/OE and Tasks Member Role: Primary Care Nurse Name: Mary Suazo RN Position: [facility] RN Member Role: Primary Care Nurse Name: Andres Pressley RN Position: [facility] ED RN W/OE and Tasks Member Role: Primary Care Nurse Name: Jany Baig DO Position: [facility] Physician - Primary Care Member Role: PCP Address: Address: [address] [place] [address] [facility] [address] Name: Kaye Payne RN Position: [facility] RN Member Role: Primary Care Nurse Name: Garima Hutchinson Position: [facility] RN Member Role: Primary Care Nurse Name: Malgorzata Austin Position: [facility] RN Member Role: Primary Care Nurse Name: Ibeth Adams RN Position: [facility] RN Member Role: Primary Care Nurse Name: Torrie Hernandez RN Position: [facility] OB RN Member Role: Primary Care Nurse Name: Gretchen Knutson RN Position: [facility] SN RN Member Role: Primary Care Nurse Name: Aislinn Mckee RN Position: [facility] RN Member Role: Primary Care Nurse Name: Ashley Mcelroy Position: [facility] RN Member Role: Primary Care Nurse Name: Ashok Kevin RN Position: [facility] RN Member Role: Primary Care Nurse Name: Cody Garcia Position: [facility] Associate Professional Member Role: Lifetime Consulting Provider Address: Address: [address] [place] [address]- Name: Paige Nascimento RN Position: S RN Member Role: Primary Care Nurse Name: Ge Covarrubias RN Position: S RN Member Role: Primary Care Nurse Name: Orin Elmore RN Position: [facility] ED RN W/OE and Tasks Member Role: Primary Care Nurse Name: Allegra Liu RN Position: [facility] AMB Nurse Member Role: Primary Care Nurse Name: Shayan Pandya MD Position: [facility] Renal MD Member Role: Lifetime Consulting Physician Address: Address: [address] [place] [address] [address] [facility] [place] [address]- Name: Darlene Rodrigez RN Position: [facility] RN Member Role: Primary Care Nurse Name: Dolores Can RN Position: S RN Member Role: Primary Care Nurse Name: Ingrid Verdugo RN Position: S RN Member Role: Primary Care Nurse Name: Monica Rowell RN Position: [facility] RN Member Role: Primary Care Nurse Name: Jimi Fitzpatrick RN Position: [facility] RN Member Role: Primary Care Nurse Care Team Related Persons Name: DUCBRIANWUMARLEN Address: [address] [place] [address] Name: MARLEN CABEZAS Address: [address] [place] [address] Name: NCIK CABEZAS Name: GEMA CABEZAS Address: [address] [place] [address]
--- OUTSIDE RECORDS SUMMARY | 2023-12-15 20:50 | XMS_ITS | Continuity of Care Document ---
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, [facility], cm, 01/06/22 10:34:00 EDT, Height, 78.3, kg, 12/26/21 19:05:00 EDT, Dry Weight Start Date: 02/18/22 Status: Ordered amLODIPine 5 mg oral tablet 5 mg, 1, tablet, By Mouth, Daily, # 30 tablet, Refills 5, Tot. Refills 5, Maintenance, 10/21/21 10:15:00 EDT, Route to Pharmacy Electronically, [facility], Partial fill upon patient request if the prescription is for a schedule II opioid drug.... Start Date: 10/21/21 Status: Ordered Co Q-10 100 mg oral capsule 1 capsule, By Mouth, 4 times a day, # 120 capsule, 5 Refills, Maintenance, 02/18/22 12:44:00 EDT, [facility], 175, cm, 01/06/22 10:34:00 EDT, Height, [...] Refills, Maintenance, 02/18/22 10:02:00 EDT, [facility], 30, USE 1 SPRAY(S) INTO EACH NOSTRIL TWICE A DAY, 175, cm, 01/06/22 10:34:00 EDT, Height, 78.3, kg, 12/26/21 19... Start Date: 02/18/22 Status: Ordered folic acid 1 mg oral tablet 1 mg, 1, tablet, By Mouth, Daily, # 90 tablet, Refills 4, Tot. Refills 4, Maintenance, 10/27/21 10:40:00 EDT, Route to Pharmacy Electronically, [facility], Partial fill upon patient request if the prescription is for a schedule II opioid drug.... Start Date: 10/27/21 Stop Date: 01/20/23 Status: Ordered furosemide 20 mg oral tablet 1, tablet, By Mouth, 2 times a day, # 60 tablet, Refills 0, Maintenance, 03/02/22 10:28:00 EDT, Route to Pharmacy Electronically, [id number], 175, cm, 01/06/22 10:34:00 EDT, Height, 78.3, kg, 12/26/21 19:05:00 EDT, Dry Weight Start Date: 03/02/22 Stop Date: 04/01/22 Status: Ordered gabapentin 300 mg oral capsule 600 mg, 2, capsule, By Mouth, Daily at bedtime, note dose change, # 180 capsule, Refills 4, Tot. Refills 4, Maintenance, 03/04/22 10:17:00 EDT, Route to Pharmacy Electronically, [facility] #[id number], Partial fill upon patient request if the prescription... Start Date: 03/04/22 Stop Date: 05/28/23 Status: Ordered hydrOXYzine hydrochloride 25 mg oral tablet 1 TO 2 TABLETS, By Mouth, 3 times a day, PRN NEEDED FOR ANXIETY (VIAL), # 60 tablet, 0 Refills, Maintenance, 02/18/22 12:45:00 EDT, [facility], 175, cm, 01/06/22 10:34:00 EDT, Height, 78.3, kg, 12/26/21 19:05:00 EDT, Dry Weight Start Date: 02/18/22 Status: Ordered lactulose 10 gm/15 ml oral syrup See Instructions, TAKE 30ML BY MOUTH THREE TIMES DAILY NEEDED TO ACHEIVE 3-4 BOWL MOVEMENTS PER DAY, # 3,000 mL, 10 Refills, [facility], 30, TAKE 30ML BY MOUTH THREE TIMES DAILY NEEDED TO ACHEIVE 3-4 BOWL MOVEMENTS PER DAY, 174, cm, 02/12... Start Date: 07/02/21 Status: Ordered lidocaine 0.5% topical gel 1 application, Topically, 3 times a day, # 120 Gm, 0 Refills, Acute 12/30/22 17:23:00 EDT, 12/30/2216:23:00 EDT, Gel, [facility], Partial fill upon patient request if the prescription is fora schedule II opioid drug., 1 application Topically... Start Date: 12/30/21 Stop Date: 12/30/22 Status: Ordered Lidoderm 5% film 1 patch, Topically, Daily, remove patches after 12 hours NSAIDS contraindicated High dose tylenol contraindicated, # 30 patch, 5 Refills, Maintenance, 12/26/21 9:33:00 EDT, [facility], Partial fill upon patient request if the prescription i... Start Date: 12/26/21 Status: Ordered magnesium oxide 400 mg oral tablet 1 tablet, By Mouth, 2 times a day, # 60 tablet, 0 Refills, Maintenance, 02/18/22 12:43:00 EDT, [facility], 175, cm, 01/06/22 10:34:00 EDT, Height, 78.3, kg, 12/26/21 19:05:00 EDT, Dry Weight Start Date: 02/18/22 Status: Ordered Melatonin 3 mg oral tablet 1 tablet, By Mouth, Daily at bedtime, PRN NEEDED FOR INSOMNIA (PACKAGE IN TRAY), # 60 tablet, 5 Refills, Maintenance, 06/02/21 16:17:00 EST, [facility], 28, 1 tablet By Mouth Daily [...] Stop Date: 04/19/22 Status: Ordered Potassium Chloride ([id number]-[id number]-[id number] M20) 20 mEq oral tablet, extended release See Instructions, TAKE 2 TABLETS BY MOUTH DAILY, # 60 tablet, 0 Refills, Maintenance, 02/18/22 12:43:00 EDT, [facility], 175, cm, 01/06/22 10:34:00 EDT, Height, 78.3, kg, 12/26/21 19:05:00 EDT, Dry Weight Start Date: 02/18/22 Status: Ordered pyridoxine 50 mg oral tablet 50 mg, 1, tablet, By Mouth, Daily, for 90 days, # 90 tablet, Refills 4, Tot. Refills 4, Acute 01/15/23 11:42:00 EDT, 10/22/21 11:42:00 EDT, Route to Pharmacy Electronically, [facility], Partial fill upon patient request if [...] # 90 tablet, 9 Refills, [facility], 28, TAKE 1 TABLET BY MOUTH [...] Pharmacy Electronically, [facility], 175,cm, 01/06/22 10:34:00 EDT, Height, 78.3, kg, ... Start Date: 01/30/22 Status: Ordered traZODone 50 mg oral tablet See Instructions, TAKE 2-3 TABLETS BY MOUTH AT BEDTIME (ONE DOSE IN VIAL), # 90 tablet, Refills 5, Tot. Refills 5, Maintenance, 12/26/21 9:21:00 EDT, Instructions Replace Required Details, Route to Pharmacy Electronically, [facility], 170, cm,... Start Date: 12/26/21 Status: Ordered Vitamin B1 100 mg oral tablet 1, tablet, By Mouth, Daily, # 90 tablet, Refills 0, Route to Pharmacy Electronically, [facility], 170, cm, 11/12/21 10:02:00 EDT, Height, 78, kg, 11/04/21 12:03:00 EDT, Dry Weight Start Date: 12/24/21 Status: Ordered Xifaxan 550 mg oral tablet 1 tablet, By Mouth, 2 times a day, # 60 tablet, 2 Refills, [facility], 175, cm, 01/06/22 10:34:00 EDT, Height, [...] Personnel Name: Jany Baig DO Address: Address: [address] [place] [address] Adult [facility] Pediatric Medicine [place], [place] [address]
--- OUTSIDE RECORDS SUMMARY | 2023-12-15 20:50 | XMS_ITS | Continuity of Care Document ---
Author Organization 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 Name Role Phone Jany Baig DO Primary Care Physician Encounter [facility] [place] Date(s): 08/11/21 - 08/11/[address] [address]- Discharge Disposition: A-D/C Home Attending Physician: Maria Guadalupe Stern DO Admitting Physician: Maria Guadalupe Stern DO Referring Physician: Not on Staff, Referring [...] 03/01/20 Nikhil rded influenza virus vaccine, inactivated 02/12/18 [...] (oldterm) 08/02/12 Give n 1Result Comment: [04/29/2017] [id number] 2Admin Note: FLUARIX 3Admin Note: 3 RDINJ 4Admin Note: #2 Medications baclofen 10 mg oral tablet 1, tablet, By Mouth, 3 times a day, # 90 tablet, Refills 0, Route to Pharmacy Electronically, [facility], 174, cm, 02/27/21 15:17:00 EDT, Height, 81, kg, 02/27/21 14:06:00 EDT, Dry Weight Start Date: 07/08/21 Status: Ordered chantix 1mg tablet 1 tablet, By Mouth, 2 times a day, # 56 tablet, 0 Refills, Acute, 11/22/20 16:13:00 EDT, [facility], 178, cm, 11/12/20 15:32:00 EDT, Height, 84.9, kg, 08/31/20 1:07:00 EDT, Dry Weight Start Date: 11/22/20 Status: Ordered Co Q-10 100 mg oral capsule 1 capsule, By Mouth, 4 times a day, # 120 capsule, 6 Refills, [facility], 174, cm, 02/27/2115:17:00 EDT, Height, 81, kg, 02/27/21 14:06:00 EDT, Dry Weight Start Date: 07/08/21 Status: Ordered fluticasone 50 mcg/inh nasal spray See Instructions, USE 1 SPRAY INTO EACH NOSTRIL TWICE A DAY, # 16 Gm, 5 Refills, [facility], 30, USE 1 SPRAY INTO EACH NOSTRIL TWICE A DAY, 174, cm, 07/14/21 8:16:00 EST, Height, 81, kg, 02/27/21 14:06:00 EDT, Dry Weight Start Date: 08/04/21 Status: Ordered gabapentin 600 mg oral tablet 1 tablet, By Mouth, 4 times a day, # 120 tablet, 0 Refills, [facility], 174, cm, 02/27/21 15:17:00 EDT, Height, 81, kg, 02/27/21 14:06:00 EDT, Dry Weight Start Date: 07/08/21 Status: Ordered hydrOXYzine hydrochloride 25 mg oral tablet 1 TO 2 TABLETS, By Mouth, 3 times a day, PRN NEEDED FOR ANXIETY (VIAL), # 60 tablet, 0 Refills, [facility], 174, cm, 02/27/21 15:17:00 EDT, Height, 81, kg, 02/27/21 14:06:00 EDT, Dry Weight Start Date: 07/08/21 Status: Ordered lactulose 10 gm/15 ml oral syrup See Instructions, TAKE 30ML BY MOUTH THREE TIMES DAILY NEEDED TO ACHEIVE 3-4 BOWL MOVEMENTS PER DAY, # 3,000 mL, 10 Refills, [facility], 30, TAKE 30ML BY MOUTH THREE TIMES DAILY NEEDED TO ACHEIVE 3-4 BOWL MOVEMENTS PER DAY, 174, cm, 02/12... Start Date: 07/02/21 Status: Ordered Melatonin 3 mg oral tablet 1 tablet, By Mouth, Daily at bedtime, PRN NEEDED FOR INSOMNIA (PACKAGE IN TRAY), # 60 tablet, 5 Refills, Maintenance, 06/02/21 16:17:00 EST, [facility], 28, 1 tablet By Mouth Daily at bedtime,PRN: NEEDED FOR INSOMNIA (PACKAGE IN TRAY), 17... Start Date: 06/02/21 Status: Ordered nicotine 14 mg/24 hr transdermal film, extended release 1 patch, Topically, Daily, for 28 days, # 28 patch, 0 Refills, Acute 09/05/21 15:22:00 EDT, 08/08/21 15:22:00 EST, Patch, [facility]/pharmacy #[id number], Partial fill upon patient request if the prescription is for a schedule II opioid drug., 1 patch Topically Da... Start Date: 08/08/21 Stop Date: 09/05/21 Status: Ordered nicotine 21 mg/24 hr transdermal film, extended release 1 patch, Topically, Daily, for 28 days, # 28 patch, 0 Refills, Acute 09/05/21 15:29:00 EDT, 08/08/21 15:29:00 EST, Patch, [facility]/pharmacy #[id number], Partial fill upon patient request if the prescription is for a schedule II opioid drug., 1 patch Topically Da... Start Date: 08/08/21 Stop Date: 09/05/21 Status: Ordered Nicotine 7 mg/24 hour patch 1 patch, Topically, Daily, for 28 days, # 28 patch, 0 Refills, Acute 09/05/21 15:22:00 EDT, 08/08/21 15:22:00 EST, Patch, [facility]/pharmacy #[id number], Partial fill upon patient request if the prescription is for a schedule II opioid drug., 1 patch Topically Da... Start Date: 08/08/21 Stop Date: 09/05/21 Status: Ordered OXcarbazepine 150 mg oral tablet Refills 0, Maintenance, 02/27/21 14:40:00 EDT, Partial fill upon patient request if the prescription is for a schedule II opioid drug. Start Date: 02/27/21 Status: Ordered OXcarbazepine 300 mg oral tablet Refills 0, Maintenance, 02/27/21 14:40:00 EDT, Partial fill upon patient request if the prescription is for a schedule II opioid drug. Start Date: 02/27/21 Status: Ordered pantoprazole 40 mg oral delayed release tablet See Instructions, TAKE 1 TABLET BY MOUTH TWICE A DAY, # 60 tablet, 2 Refills, 174, cm, 02/27/21 15:17:00 EDT, Height, 81, kg, 02/27/21 14:06:00 EDT, Dry Weight Start Date: 07/08/21 Status: Ordered sertraline 100 mg oral tablet 1 tablet = 100 mg, By Mouth, Daily, combine with 50mg tab to equal 150mg daily, # 90 tablet, 1 Refills, Maintenance, 10/06/19 15:57:00 EDT, Tablet, [facility], 175, cm, 08/24/19 14:14:00 EDT,Height, 81.2, kg, 02/04/19 1:40:00 EDT, Dry Weight Start Date: 10/06/19 Status: Ordered sertraline 50 mg oral tablet 1 tablet, By Mouth, Daily, TAKE ALONG WITH A 100MG TABLET to equal 150mg daily, # 90 tablet, 1 Refills, Maintenance, 10/06/19 15:57:00 EDT, [facility], 175, cm, 08/24/19 14:14:00 EDT, Height,81.2, kg, 02/04/19 1:40:00 EDT, Dry Weight Start Date: 10/06/19 Status: Ordered sildenafil 50 mg oral tablet 1 tablet = 50 mg, By Mouth, Daily, PRN erectile dysfunction, 1 hour before sexual activity, # 6 tablet, 5 Refills, Maintenance, 03/11/20 14:37:00 EDT, Tablet, [facility]/pharmacy #[id number], 175, cm, 08/24/19 14:14:00 EDT, Height, 81.2, kg, 02/04/19 1:40:00 EDT,... Start Date: 03/11/20 Status: Ordered Tab-A-Jesse oral tablet 1 tablet, By Mouth, Daily, # 90 tablet, 9 Refills, [facility], 28, TAKE 1 TABLET BY MOUTH ONCE A DAY, 174, cm, 07/14/21 8:16:00 EST, Height, 81, kg, 02/27/21 14:06:00 EDT, Dry Weight Start Date: 07/22/21 Status: Ordered tranexamic acid 650 mg oral tablet 1 tablet = 650 mg, By Mouth, Daily, # 21 tablet, 0 Refills, Maintenance, 10/22/20 17:52:00 EDT, Tablet, [facility]/pharmacy #[id number], Partial fill upon patient request if the prescription is for a schedule II opioid drug., 178, cm, 10/22/20 13:17:00 EDT, Height... Start Date: 10/22/20 Status: Ordered traZODone 50 mg oral tablet See Instructions, TAKE 1 TO 2 TABLETS BY MOUTH AT BEDTIME (ONE DOSE IN VIAL), # 60 tablet, Refills 0, Instructions Replace Required Details, Route to Pharmacy Electronically, [facility], 174,cm, 02/27/21 15:17:00 EDT, Height, 81, kg, 02/27/21... Start Date: 07/10/21 Status: Ordered traZODone 50 mg oral tablet See Instructions, TAKE 1 TO 2 TABLETS BY MOUTH AT BEDTIME (ONE DOSE IN VIAL), # 60 tablet, Refills 5, Instructions Replace Required Details, Route to Pharmacy Electronically, [facility], 174,cm, 02/11/21 12:09:00 EDT, Height, 86.6, kg, ... Start Date: 02/15/21 Status: Ordered varenicline 0.5 mg tablet 1 tablet = 0.5 mg, By Mouth, 2 times a day, Days 1 to 3: 0.5 mg once daily. Days 4 to 7: 0.5 mg twice daily. then start new script for 1 mg twice a day, # 11 tablet, 0 Refills, Maintenance, 08/08/21 15:24:00 EST, Tablet, [facility]/pharmacy #[id number], Partial f... Start Date: 08/08/21 Status: Ordered varenicline 1mg tablet 1 tablet = 1 mg, By Mouth, 2 times a day, to start after 0.5 mg tabs, # 56 tablet, 0 Refills, Maintenance, 08/08/21 15:26:00 EST, Tablet, [facility]/pharmacy #[id number], Partial fill upon patient request if the prescription is for a schedule II opioid drug., 174,... Start Date: 08/08/21 Status: Ordered Vitamin B1 100 mg oral tablet 1, tablet, By Mouth, Daily, # 90 tablet, Refills 1, Route to Pharmacy Electronically, [facility], 174, cm, 02/27/21 15:17:00 EDT, Height, 81, kg, 02/27/21 14:06:00 EDT, Dry Weight Start Date: 06/16/21 Status: Ordered Xifaxan 550 mg oral tablet 1 tablet, By Mouth, 2 times a day, # 60 tablet, 0 Refills, Maintenance, 04/16/20 14:45:00 EST, [facility]/pharmacy #[id number], 175, cm, 04/02/20 0:35:00 EDT, Height, 100, kg, 04/02/20 0:35:00 EDT, Dry Weight Start Date: 04/16/20 Status: Ordered Problem List Condition Effective Dates Status Health Status Inform ant AC joint derangement(Confirmed) 1 Active H/o Acute upper GI bleed due to variceal bleed(Confirmed) Active Alcohol abuse(Confirmed) Active Alcoholic hepatitis, cirrhosis(Confirmed) 2, 3 Active Anemia(Confirmed) 4 Active Patellar contusion, seen by [facility] spring 2015(Confirmed) Active Esophageal varices s/p TIPS(Confirmed) Active Gynecomastia, male(Confirmed) Active H/O: substance abuse; report s sobriety since summer 2015(Confirmed) 5 Active Hepatic encephalopathy(Confirmed) Active ED (erectile dysfunction)(Confirmed) Active Insomnia(Confirmed) Active Migraine(Confirmed) 08/02/12 Active Anxiety and depression; admi ssion to [facility] in 06/2015(Confirmed) Active Neuropathy(Confirmed) 6 Active ANA LUISA (obstructive sleep apnea)(Confirmed) Active Sherie's Optic neuropathy(Con firmed) 7, 8, 9 Active Overweight(Confirmed) Active Heart murmur, systolic(Confirmed) 10 Active Vitamin D insufficiency(Confirmed) 08/16/12 Active 1refer ortho 2neg HEP C,b; immune HEP A, 3r/o nhemochromatosis 4workup 5referred counseling 6? alcohol 7neg RF ANCA,normal immunofixation, 8lumbar puncture November 2011,neg lymenormal IGA neg SSA ,SSBnormal methylmalonic acid homocyseine 9legally blind;hereditary 10normal echo November 2014 Vital Signs Most recent to oldest [Reference Range]: 1 2 3 Oxygen Saturation [94-100 %] 98 % (08/11/21 8:23 AM) 100 % (08/11/21 6:13 AM) 99 % (08/11/21 6:06 AM) Pulse Rate [55-90 bpm] 78 bpm (08/11/21 8:23 AM) 75 bpm (08/11/21 6:13 AM) 78 bpm (08/11/21 6:06 AM) Blood Pressure [90-138/55-84 mm Hg] 137/81mm Hg (08/11/21 8:23 AM) 141/85mm Hg *H* (08/11/21 6:13 AM) 124/75mm Hg (08/11/21 3:19 AM) Respiratory Rate [16-30 br/min] 18 br/min (08/11/21 8:23 AM) 18 br/min (08/11/21 6:13 AM) 20 br/min (08/11/21 3:19 AM) Temperature [96.8-100.4 DegF] 98.3 DegF (08/11/21 8:23 AM) 97.9 DegF (08/11/21 6:13 AM) 98.2 DegF (08/11/21 3:19 AM) Mode of Delivery (Oxygen) Room air (08/11/21 8:23 AM) Room air (08/11/21 6:13 AM) Room air (08/11/21 3:19 AM) Temperature Route Oral (08/11/21 8:23 AM) Oral (08/11/21 6:13 AM) Oral (08/11/21 3:19 AM) Social History Social History Type Response Smoking Status 10 or more cigarette s (1/2 pack or more)/day in last 30 days entered on: 02/04/19 Sex Male
--- OUTSIDE RECORDS SUMMARY | 2023-12-15 20:50 | XMS_ITS | Continuity of Care Document ---
Author Organization [facility] Address [address] [place] [address]- Care Team Providers Care Sap Business Intelligence Consultant Name Role Phone Jany Baig DO Primary Care Physician Encounter [facility] Date(s): 05/03/20 - 06/02/20 [facility] [address] [place], [place] [address] Allergies, Adverse Reactions, Alerts Substance [...] 10/09/19 Recorded Hepatitis B Vaccine (old term) 1 09/08/12 Given Hepatitis B Vaccine (old term) 08/09/12 Given tetanus/diphtheria/pertussis, acel(Tdap) 06/22/18 Given tetanus/diphtheria/pertussis, acel(Tdap) 11/25/15 Given influenza virus vaccine, inactivated 02/12/18 Nikhil rded influenza virus vaccine, inactivated 2 04/29/17 Gi cleopatra influenza virus vaccine, inactivated 04/15/16 Give n influenza virus vaccine, inactivated 03/16/15 Give n influenza virus vaccine, inactivated 03/12/14 Give n influenza virus vaccine, inactivated 3 02/28/13 Gi cleopatra pneumococcal 23-valent vaccine 03/16/15 Given hepatitis B adult vaccine 4 02/28/13 Given Pneumococcal Vaccine (oldterm) 08/02/12 Given Tet/diphth/pertussis, acel (oldterm) 08/02/12 Give n 1Admin Note: #2 2Result Comment: [04/29/2017] [id number] 3Admin Note: FLUARIX 4Admin Note: 3 RDINJ Medications baclofen 10 mg oral tablet 10 mg, 1, tablet, By Mouth, 3 times a day, # 90 tablet, Refills 4, Tot. Refills 4, Maintenance, 02/16/20 17:55:00 EDT, Route to Pharmacy Electronically, [facility], 175, cm, 08/24/19 14:14:00EDT, Height, 81.2, kg, 02/04/19 1:40:00 EDT, Dry We... Start Date: 02/16/20 Stop Date: 07/15/20 Status: Ordered chantix 1mg tablet 1 tablet, By Mouth, 2 times a day, for 12 week(s), # 56 tablet, 0 Refills, Acute, 05/21/20 12:54:00EST, [facility], 175, cm, 04/02/20 0:35:00 EDT, Height, 100, kg, 04/02/20 0:35:00 EDT, Dry Weight Start Date: 05/21/20 Stop Date: 08/13/20 Status: Ordered Co Q-10 100 mg oral capsule 1 capsule, By Mouth, 4 times a day, # 120 capsule, 11 Refills, Maintenance, 11/21/19 10:36:00 EDT, [facility]/pharmacy #[id number], 175, cm, 08/24/19 14:14:00 EDT, Height, 81.2, kg, 02/04/19 1:40:00 EDT, Dry Weight Start Date: 11/21/19 Stop Date: 11/15/20 Status: Ordered Engerix-B 20 mcg/mL intramuscular suspension = 20 mcg, Intramuscular, Every 30 days, rpt at 1 and 6 months, # 1 mL, 2 Refills, Maintenance, 11/02/19 9:02:00 EDT, Suspension, [facility]/pharmacy #[id number], 175, cm, 08/24/19 14:14:00 EDT, Height, 81.2, kg, 02/04/19 1:40:00 EDT, Dry Weight Start Date: 11/02/19 Status: Ordered fluticasone 50 mcg/inh nasal spray See Instructions, SPRAY 1 SPRAY INTO EACH NOSTRIL TWICE A DAY, # 16 Gm, 5 Refills, 01/26/20 9:52:00EDT, [facility], 30, SPRAY 1 SPRAY INTO EACH NOSTRIL TWICE A DAY, 175, cm, 08/24/19 14:14:00 EDT, Height, 81.2, kg, 02/04/19 1:40:00 EDT, Dry W... Start Date: 01/26/20 Status: Ordered gabapentin 600 mg oral tablet 1 tablet, By Mouth, 4 times a day, # 120 tablet, 2 Refills, Maintenance, 05/21/20 12:54:00 EST, [facility], 175, cm, 04/02/20 0:35:00 EDT, Height, 100, kg, 04/02/20 0:35:00 EDT, Dry Weight Start Date: 05/21/20 Status: Ordered hydrOXYzine hydrochloride 25 mg oral tablet 1 TO 2 TABLETS, By Mouth, 3 times a day, PRN NEEDED FOR ANXIETY (VIAL), # 60 tablet, 1 Refills, Acute, 05/21/20 12:54:00 EST, [facility], 175, cm, 04/02/20 0:35:00 EDT, Height, 100, kg, 04/02/20 0:35:00 EDT, Dry Weight Start Date: 05/21/20 Status: Ordered lactulose 10 gm/15 ml oral syrup 30 mL = 20 Gm, By Mouth, 3 times a day, PRN Other, for 30 days, PRN to acheive 3-4 BMs per day fillin prefilled syringes, # 3,000 mL, 11 Refills, Acute 11/25/20 16:37:00 EDT, 12/01/19 16:37:00 EDT, Syrup, [facility], re sent from 10/04/17, 30... Start Date: 12/01/19 Stop Date: 11/25/20 Status: Ordered lactulose 10 gm/15 ml oral syrup 30 mL = 20 Gm, By Mouth, 3 times a day, 0 Refills, Maintenance, 02/06/19 10:33:08 EDT, Syrup Start Date: 02/06/19 Status: Ordered lactulose 10 gm/15 ml oral syrup 30 mL = 20 Gm, By Mouth, 3 times a day, PRN Other, titrate to 3-4 soft bowel motions per day, 0 Refills, Maintenance, 02/06/19 10:33:12 EDT, Syrup Start Date: 02/06/19 Status: Ordered melatonin 3 mg oral tablet 1 tablet = 3 mg, By Mouth, Daily at bedtime, PRN for insomnia, # 60 tablet, 4 Refills, Maintenance,10/06/19 16:16:00 EDT, Tablet, [facility], 175, cm, 08/24/19 14:14:00 EDT, Height, 81.2, kg, 02/04/19 1:40:00 EDT, Dry Weight Start Date: 10/06/19 Status: Ordered Melatonin 3 mg oral tablet 1 tablet = 3 mg, By Mouth, Daily at bedtime, PRN for insomnia, # 60 tablet, 0 Refills, Maintenance,06/26/19 20:34:00 EST, Tablet Start Date: 06/26/19 Status: Ordered mupirocin 2% topical ointment See Instructions, APPLY TOPICALLY THREE TIMES DAILY (APPLY A THIN FILM), # 22 Gm, 0 Refills, Maintenance, 04/16/20 14:45:00 EST, [facility]/pharmacy #[id number], 8, APPLY TOPICALLY THREE TIMES DAILY (APPLY A THINFILM), 175, cm, 04/02/20 0:35:00 EDT, Height, 100,... Start Date: 04/16/20 Status: Ordered naltrexone 50 mg oral tablet 1 tablet = 50 mg, By Mouth, Daily, through clean slate, # 30 tablet, 0 Refills, Maintenance, 05/10/18 9:30:24 EST, Tablet Start Date: 05/10/18 Status: Ordered OXcarbazepine 300 mg oral tablet 450 mg, 2 times a day, Refills 0, Maintenance, 02/29/20 15:01:00 EDT Start Date: 02/29/20 Status: Ordered pantoprazole 40 mg oral delayed release tablet 1 tablet, By Mouth, 2 times a day, # 60 tablet, 2 Refills, Maintenance, 04/16/20 11:23:00 EST, 175,cm, 04/02/20 0:35:00 EDT, Height, 100, kg, 04/02/20 0:35:00 EDT, Dry Weight Start Date: 04/16/20 Status: Ordered sertraline 100 mg oral tablet 1 tablet = 100 mg, By Mouth, Daily, combine with 50mg tab to equal 150mg daily, # 90 tablet, 1 Refills, Maintenance, 10/06/19 15:57:00 EDT, Tablet, [facility], 175, cm, 08/24/19 14:14:00 EDT,Height, 81.2, kg, 02/04/19 1:40:00 EDT, Dry Weight Start Date: 10/06/19 Status: Ordered sertraline 50 mg oral tablet 1 tablet, By Mouth, Daily, TAKE ALONG WITH A 100MG TABLET to equal 150mg daily, # 90 tablet, 1 Refills, Maintenance, 10/06/19 15:57:00 EDT, [facility], 175, cm, 08/24/19 [...] tablet, 1 Refills, Maintenance, 05/21/20 9:35:00 EST, [facility], 1 tablet By Mouth Daily, 175, cm, 04/02/20 0:35:00 EDT, Height, 100, kg, 04/02/20 0:35:00 EDT, Dry Weight Start Date: 05/21/20 Status: Ordered thermometer R50.9 thermometer R50.9, See Instructions, # 1 each, Refills 0, Tot. Refills 0, Maintenance, use as directed, 06/13/18 10:30:58 EST, Compound Start Date: 06/13/18 Status: Ordered traZODone 50 mg oral tablet 50 mg, 1, tablet, By Mouth, Daily at bedtime, # 30 tablet, Refills 0, Maintenance, 02/29/20 15:01:00 EDT Start Date: 02/29/20 Status: Ordered Vitamin B1 100 mg oral tablet 1, tablet, By Mouth, Daily, # 90 tablet, Refills 3, Tot. Refills 3, Maintenance, 09/27/19 8:51:00 EDT, Route to Pharmacy Electronically, [facility], 175, cm, 08/24/19 14:14:00 EDT, Height, 81.2, kg, 02/04/19 1:40:00 EDT, Dry Weight Start Date: 09/27/19 Status: Ordered Xifaxan 550 mg oral tablet [...]
--- OUTSIDE RECORDS SUMMARY | 2023-12-15 20:50 | XMS_ITS | Continuity of Care Document ---
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 Refills 0, Maintenance, 09/09/20 17:02:00 EDT, Route to Pharmacy Electronically, [facility], 178, cm, 08/31/20 11:25:00 EDT, Height, 84.9, kg, 08/31/20 1:07:00 EDT, Dry Weight Start Date: 09/09/20 Status: Ordered chantix 1mg tablet 1 tablet, By Mouth, 2 times a day, for 12 week(s), # 56 tablet, 0 Refills, Acute, 09/05/20 17:32:00EDT, [facility], 178, cm, 08/31/20 11:25:00 EDT, Height, 84.9, kg, 08/31/20 1:07:00 EDT, Dry Weight Start Date: 09/05/20 Stop Date: 11/28/20 Status: Ordered Co Q-10 100 mg oral capsule 1 capsule, By Mouth, 4 times a day, # 120 capsule, 11 Refills, Maintenance, 11/21/19 10:36:00 EDT, [facility]/pharmacy #[id number], 175, cm, 08/24/19 14:14:00 EDT, Height, 81.2, kg, 02/04/19 1:40:00 EDT, Dry Weight Start Date: 11/21/19 Stop Date: 11/15/20 Status: Ordered Engerix-B 20 mcg/mL intramuscular suspension = 20 mcg, Intramuscular, Every 30 days, rpt at 1 and 6 months, # 1 mL, 2 Refills, Maintenance, 11/02/19 9:02:00 EDT, Suspension, [facility]/pharmacy #[id number], 175, cm, 08/24/19 14:14:00 EDT, Height, 81.2, kg, 02/04/19 1:40:00 EDT, Dry Weight Start Date: 11/02/19 Status: Ordered fluticasone 50 mcg/inh nasal spray See Instructions, SPRAY 1 SPRAY INTO EACH NOSTRIL TWICE A DAY, # 16 Gm, 5 Refills, 07/09/20 11:38:00 EST, [facility], 30, SPRAY 1 SPRAY INTO EACH NOSTRIL TWICE A DAY, 175, cm, 04/02/20 0:35:00 EDT, Height, 100, kg, 04/02/20 0:35:00 EDT, Dry We... Start Date: 07/09/20 Status: Ordered gabapentin 600 mg oral tablet 1 tablet, By Mouth, 4 times a day, # 120 tablet, 0 Refills, Maintenance, 09/05/20 17:32:00 EDT, [facility], 178, cm, 08/31/20 11:25:00 EDT, Height, 84.9, kg, 08/31/20 1:07:00 EDT, Dry Weight Start Date: 09/05/20 Status: Ordered hydrOXYzine hydrochloride 25 mg oral tablet 1 TO 2 TABLETS, By Mouth, 3 times a day, PRN NEEDED FOR ANXIETY (VIAL), # 60 tablet, 0 Refills, Acute, 09/05/20 17:32:00 EDT, [facility], 178, cm, 08/31/20 11:25:00 EDT, Height, 84.9, kg, 08/31/20 1:07:00 EDT, Dry Weight Start Date: 09/05/20 Status: Ordered lactulose 10 gm/15 ml oral syrup 30 mL = 20 Gm, By Mouth, 3 times a day, PRN Other, for 30 days, PRN to acheive 3-4 BMs per day fillin prefilled syringes, # 3,000 mL, 11 Refills, Acute 11/25/20 16:37:00 EDT, 12/01/19 16:37:00 EDT, Syrup, [facility], re sent from 10/04/17, 30... Start Date: 12/01/19 Stop Date: 11/25/20 Status: Ordered melatonin 3 mg oral tablet 1 tablet = 3 mg, By Mouth, Daily at bedtime, PRN for insomnia, # 60 tablet, 4 Refills, Maintenance,07/18/20 17:30:00 EST, Tablet, [facility], 175, cm, 04/02/20 0:35:00 EDT, Height, 100, kg, 04/02/20 0:35:00 EDT, Dry Weight Start Date: 07/18/20 Status: Ordered mupirocin 2% topical ointment See Instructions, APPLY TOPICALLY THREE TIMES DAILY (APPLY A THIN FILM), # 22 Gm, 0 Refills, Maintenance, 04/16/20 14:45:00 EST, [facility]/pharmacy #[id number], 8, APPLY TOPICALLY THREE TIMES DAILY (APPLY A THINFILM), 175, cm, 04/02/20 0:35:00 EDT, Height, 100,... Start Date: 04/16/20 Status: Ordered pantoprazole 40 mg oral delayed release tablet 1 tablet, By Mouth, 2 times a day, # 60 tablet, 2 Refills, Maintenance, 09/28/20 10:35:00 EDT, 178,cm, 08/31/20 11:25:00 EDT, Height, 84.9, kg, 08/31/20 1:07:00 EDT, Dry Weight Start Date: 09/28/20 Status: Ordered sertraline 100 mg oral tablet 1 tablet = 100 mg, By Mouth, Daily, combine with 50mg tab to equal 150mg daily, # 90 tablet, 1 Refills, Maintenance, 10/06/19 15:57:00 EDT, Tablet, [facility], 175, cm, 08/24/19 14:14:00 EDT,Height, 81.2, kg, 02/04/19 1:40:00 EDT, Dry Weight Start Date: 10/06/19 Status: Ordered sertraline 50 mg oral tablet 1 tablet, By Mouth, Daily, TAKE ALONG WITH A 100MG TABLET to equal 150mg daily, # 90 tablet, 1 Refills, Maintenance, 10/06/19 15:57:00 EDT, [facility], 175, cm, 08/24/19 14:14:00 EDT, Height,81.2, kg, 02/04/19 1:40:00 EDT, Dry Weight Start Date: 10/06/19 Status: Ordered sildenafil 50 mg oral tablet 1 tablet = 50 mg, By Mouth, Daily, PRN erectile dysfunction, 1 hour before sexual activity, # 6 tablet, 5 Refills, Maintenance, 03/11/20 14:37:00 EDT, Tablet, [facility]/pharmacy #[id number], 175, cm, 08/24/19 14:14:00 EDT, Height, 81.2, kg, 02/04/19 1:40:00 EDT,... Start Date: 03/11/20 Status: Ordered Tab-A-Jesse oral tablet See Instructions, TAKE 1 TABLET BY MOUTH ONCE A DAY, # 30 tablet, 10 Refills, Maintenance, [facility], 28, TAKE 1 TABLET BY MOUTH ONCE A DAY, 175, cm, 04/02/20 0:35:00 EDT, Height, 100, kg, 04/02/20 0:35:00 EDT, Dry Weight Start Date: 07/18/20 Status: Ordered thermometer R50.9 thermometer R50.9, See Instructions, # 1 each, Refills 0, Tot. Refills 0, Maintenance, use as directed, 06/13/18 10:30:58 EST, Compound Start Date: 06/13/18 Status: Ordered traMADol 50 mg oral tablet 1 tablet = 50 mg, By Mouth, Every 12 hours, PRN as needed for pain, 0 Refills, Maintenance, 08/30/20 23:24:00 EDT, Tablet, Partial fill upon patient request if the prescription is for a schedule II opioid drug. Start Date: 08/30/20 Status: Ordered tranexamic acid 650 mg oral tablet 1 tablet = 650 mg, By Mouth, Daily, # 21 tablet, 0 Refills, Maintenance, 09/30/20 15:18:00 EDT, Tablet, [facility]/pharmacy #[id number], Partial fill upon patient request if the prescription is for a schedule II opioid drug., 178, cm, 08/31/20 11:25:00 EDT, Height... Start Date: 09/30/20 Status: Ordered traZODone 50 mg oral tablet See Instructions, TAKE 1 TO 2 TABLETS BY MOUTH AT BEDTIME (ONE DOSE IN VIAL), # 60 tablet, Refills 0, Maintenance, Instructions Replace Required Details, Route to Pharmacy Electronically, [facility], 178, cm, 08/31/20 11:25:00 EDT, Height, 84.... Start Date: 09/05/20 Status: Ordered Vitamin B1 100 mg oral tablet 1, tablet, By Mouth, Daily, # 90 tablet, Refills 2, Tot. Refills 0, Acute, 09/05/20 17:32:00 EDT, Route to Pharmacy Electronically, [facility], 178, cm, 08/31/20 11:25:00 EDT, Height, 84.9, kg, 08/31/20 1:07:00 EDT, Dry Weight Start Date: 09/05/20 Status: Ordered Xifaxan 550 mg oral tablet 1 tablet, By Mouth, 2 times a day, # 60 tablet, 0 Refills, Maintenance, 04/16/20 14:45:00 EST, [facility]/pharmacy #[id number], 175, cm, 04/02/20 0:35:00 EDT, [...] Range]: 1 2 Oxygen Saturation [94-100 %] 95 % (09/30/20 2:03 PM) 94 % (09/30/20 11:58 AM) Pulse Rate [55-90 bpm] 77 bpm (09/30/20 2:03 PM) 86 bpm (09/30/20 11:58 AM) Blood Pressure [90-138/55-84 mm Hg] 102/ 43mm Hg (09/30/20 2:03 PM) 143/92mm Hg *H* (09/30/20 11:58 AM) Respiratory Rate [16-30 br/min] 16 br/mi n (09/30/20 2:03 PM) 16 br/min (09/30/20 11:58 AM) Temperature [96.8-100.4 DegF] 98.7 DegF (09/30/20 11:58 AM) Mode of Delivery (Oxygen) Room air (09/30/20 2:03 PM) Room air (09/30/20 11:58 AM) Temperature Route Oral (09/30/20 11:58 AM) Social History Social History Type Response Smoking Status 10 or more cigarette s (1/2 pack or more)/day in last 30 days entered on: 02/04/19 Sex
--- OUTSIDE RECORDS SUMMARY | 2023-12-15 20:50 | XMS_ITS | Continuity of Care Document ---
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 Name Role Phone Jany Baig DO Primary Care Physician Encounter [facility] Date(s): 07/19/20 - 08/18/20 [facility] [address] [place] [address]- Allergies, Adverse Reactions, Alerts Substance Reaction Severity [...] 03/16/15 Given hepatitis B adult vaccine 4 9/17/13 Given Pneumococcal Vaccine (oldterm) 08/02/12 Given Tet/diphth/pertussis, acel (oldterm) 08/02/12 Give n 1Admin Note: #2 2Result Comment: [04/29/2017] [id number] 3Admin Note: FLUARIX 4Admin Note: 3 RDINJ Medications baclofen 10 mg oral tablet 10 mg, 1, tablet, By Mouth, 3 times a day, pt needs to schedule appt, # 90 tablet, Refills 0, Tot. Refills 0, Maintenance, 07/18/20 17:30:00 EST, Route to Pharmacy Electronically, [facility],175, cm, 04/02/20 0:35:00 EDT, Height, 100, kg, ... Start Date: 07/18/20 Stop Date: 08/17/20 Status: Ordered chantix 1mg tablet 1 tablet, By Mouth, 2 times a day, for 12 week(s), neeeds to schedule appt, # 56 tablet, 0 Refills,Acute 09/18/20 11:11:00 EDT, 06/26/20 11:11:00 EST, [facility], 175, cm, 04/02/20 0:35:00 EDT, Height, 100, kg, 04/02/20 0:35:00 EDT, Dry Weight Start Date: 06/26/20 Stop Date: 09/18/20 Status: Ordered Co Q-10 100 mg oral capsule 1 capsule, By Mouth, 4 times a day, # 120 capsule, 11 Refills, Maintenance, 11/21/19 10:36:00 EDT, [facility]/pharmacy #[id number], 175, cm, 08/24/19 14:14:00 EDT, Height, 81.2, kg, 02/04/19 1:40:00 EDT, Dry Weight Start Date: 11/21/19 Stop Date: 11/15/20 Status: Ordered Engerix-B 20 mcg/mL intramuscular suspension = 20 mcg, Intramuscular, Every 30 days, rpt at 1 and 6 months, # 1 mL, 2 Refills, Maintenance, 11/02/19 9:02:00 EDT, Suspension, [facility]/pharmacy #[id number], 175, cm, 08/24/19 14:14:00 EDT, Height, 81.2, kg, 02/04/19 1:40:00 EDT, Dry Weight Start Date: 11/02/19 Status: Ordered fluticasone 50 mcg/inh nasal spray See Instructions, SPRAY 1 SPRAY INTO EACH NOSTRIL TWICE A DAY, # 16 Gm, 5 Refills, 07/09/20 11:38:00 EST, [facility], 30, SPRAY 1 SPRAY INTO EACH NOSTRIL TWICE A DAY, 175, cm, 04/02/20 0:35:00 EDT, Height, 100, kg, 04/02/20 0:35:00 EDT, Dry We... Start Date: 07/09/20 Status: Ordered gabapentin 600 mg oral tablet 1 tablet, By Mouth, 4 times a day, # 120 tablet, 0 Refills, Maintenance, 08/07/20 12:03:00 EST, [facility], 175, cm, 04/02/20 0:35:00 EDT, Height, 100, kg, 04/02/20 0:35:00 EDT, Dry Weight Start Date: 08/07/20 Status: Ordered hydrOXYzine hydrochloride 25 mg oral tablet 1 TO 2 TABLETS, By Mouth, 3 times a day, PRN NEEDED FOR ANXIETY (VIAL), pt needs to schedule appt, # 60 tablet, 1 Refills, Maintenance, 07/18/20 17:31:00 EST, [facility], 175, cm, 200:35:00 EDT, Height, 100, kg, 04/02/20 0:35:00 EDT,... Start Date: 07/18/20 Status: Ordered lactulose 10 gm/15 ml oral syrup 30 mL = 20 Gm, By Mouth, 3 times a day, PRN Other, for 30 days, PRN to acheive 3-4 BMs per day fillin prefilled syringes, # 3,000 mL, 11 Refills, Acute 11/25/20 16:37:00 EDT, 12/01/19 16:37:00 EDT, Syrup, [facility], re sent from 10/[facility]/17, 30... Start [...] tablet, 4 Refills, Maintenance,07/18/20 17:30:00 EST, Tablet, [facility], 175, cm, 04/02/20 0:35:00 EDT, Height, 100, kg, 04/02/20 0:35:00 EDT, Dry Weight Start Date: 07/18/20 Status: Ordered Melatonin 3 mg oral tablet 1 tablet = 3 mg, By Mouth, Daily at bedtime, PRN for insomnia, # 60 tablet, 0 Refills, Maintenance,06/26/19 20:34:00 EST, Tablet Start Date: 06/26/19 Status: Ordered mupirocin 2% topical ointment See Instructions, APPLY TOPICALLY THREE TIMES DAILY (APPLY A THIN FILM), # 22 Gm, 0 Refills, Maintenance, 04/16/20 14:45:00 EST, [facility]/pharmacy #[id number], 8, APPLY TOPICALLY THREE TIMES DAILY (APPLY A THINFILM), 175, cm, 04/02/20 0:35:00 EDT, Height, 100,... Start Date: 04/16/20 Status: Ordered mupirocin 2% topical ointment See Instructions, APPLY TOPICALLY THREE TIMES DAILY (APPLY A THIN FILM), # 22 Gm, 0 Refills, Acute,[facility], 8, APPLY TOPICALLY THREE TIMES DAILY (APPLY A THIN FILM), 175, cm, 04/02/20 0:35:00 EDT, Height, 100, kg, 04/02/20 0:35:00 EDT, Dry... Start Date: 07/18/20 Status: Ordered naltrexone 50 mg oral tablet [...] tablet, 2 Refills, Maintenance, 07/09/20 11:38:00 EST, 175,cm, 04/02/20 0:35:00 EDT, Height, 100, kg, 04/02/20 0:35:00 EDT, Dry Weight Start Date: 07/09/20 Status: Ordered sertraline 100 mg oral tablet 1 tablet = 100 mg, By Mouth, Daily, combine with 50mg tab to equal 150mg daily, # 90 tablet, 1 Refills, Maintenance, 10/06/19 15:57:00 EDT, Tablet, [facility], 175, cm, 08/24/19 14:14:00 EDT,Height, 81.2, kg, 02/04/19 1:40:00 EDT, Dry Weight Start Date: 10/06/19 Status: Ordered sertraline 50 mg oral tablet 1 tablet, By Mouth, Daily, TAKE ALONG WITH A 100MG TABLET to equal 150mg daily, # 90 tablet, 1 Refills, Maintenance, 10/06/19 15:57:00 EDT, [facility], 175, cm, 08/24/19 14:14:00 EDT, Height,81.2, kg, 02/04/19 1:40:00 EDT, Dry Weight Start Date: 10/06/19 Status: Ordered sildenafil 50 mg oral tablet 1 tablet = 50 mg, By Mouth, Daily, PRN erectile dysfunction, 1 hour before sexual activity, # 6 tablet, 5 Refills, Maintenance, 03/11/20 14:37:00 EDT, Tablet, [facility]/pharmacy #[id number], 175, cm, 08/24/19 14:14:00 EDT, Height, 81.2, kg, 02/04/19 1:40:00 EDT,... Start Date: 03/11/20 Status: Ordered Tab-A-Jesse oral tablet 1 tablet, By Mouth, Daily, # 90 tablet, 1 Refills, Maintenance, 05/21/20 9:35:00 EST, [facility], 1 tablet By Mouth Daily, 175, cm, 04/02/20 0:35:00 EDT, Height, 100, kg, 04/02/20 0:35:00 EDT, Dry Weight Start Date: 05/21/20 Status: Ordered Tab-A-Jesse oral tablet See Instructions, TAKE 1 TABLET BY MOUTH ONCE A DAY, # 30 tablet, 10 Refills, Maintenance, [facility], [...] [facility], 175, cm, 04/02/20 0:35:00 EDT, Height, 100,... Start Date: 08/07/20 Status: Ordered Vitamin B1 100 mg oral tablet 1, tablet, By Mouth, Daily, # 90 tablet, Refills 3, Tot. Refills 3, Maintenance, 09/27/19 8:51:00 EDT, Route to Pharmacy Electronically, [facility], 175, cm, 08/24/19 14:14:00 EDT, Height, 81.2, kg, 02/04/19 1:40:00 EDT, Dry Weight Start Date: 09/27/19 Status: Ordered Xifaxan 550 mg oral tablet 1 tablet, By Mouth, 2 times a day, # 60 tablet, 0 Refills, Maintenance, 04/16/20 14:45:00 EST, [facility]/pharmacy #[id number], 175, cm, 04/02/20 0:35:00 EDT, Height, 100, kg, 04/02/20 0:35:00 EDT, Dry Weight Start Date: 04/16/20 Status: Ordered Xifaxan 550 mg oral tablet See Instructions, TAKE 1 TABLET BY MOUTH TWICE A DAY, # 60 tablet, 0 Refills, Maintenance, [facility], 175, cm, 04/02/20 0:35:00 EDT, Height, [...]
--- OUTSIDE RECORDS SUMMARY | 2023-12-15 20:50 | XMS_ITS | Continuity of Care Document ---
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 Name Role Phone Jany Baig DO Primary Care Physician Encounter [facility] Date(s): 10/20/22 - 11/19/22 [facility] [address] [place], [place] [address] Allergies, Adverse Reactions, Alerts Substance [...] acel (oldterm) 08/02/12 Give n 1Result Comment: [facility]: [id number] 2Result Comment: [04/29/2017] [id number] 3Admin Note: FLUARIX 4Admin Note: 3 RDINJ 5Admin Note: #2 Medications acamprosate 333 mg oral delayed release tablet 1 tablet = 333 mg, By Mouth, 3 times a day, # 42 tablet, 4 Refills, Maintenance, 11/05/22 11:31:00 EDT, EC Tablet, [facility], Partial fill upon patient request if the prescription is for a schedule II opioid drug., 175, cm, 11/05/22 10:21:00... Start Date: 11/05/22 Stop Date: 01/14/23 Status: Ordered amLODIPine 5 mg oral tablet 1 tablet, By Mouth, Daily, ^1R1., # 30 tablet, 2 Refills, Maintenance, 10/06/22 4:58:00 [facility], [facility], [facility], 09/07/22 8:56:00 EDT, Height, 82.1, kg, 09/07/22 8:59:00 EDT, Dry Weight Start Date: 10/06/22 Status: Ordered baclofen 10 mg oral tablet See Instructions, TAKE 1 TABLET BY MOUTH THREE TIMES DAILY, # 90 tablet, Refills 0, Maintenance, 08/07/22 12:26:00 EST, Instructions Replace Required Details, [facility], [facility], cm, 08/07/22 11:37:00 EST, Height... Start Date: 08/07/22 Status: Ordered calcium (as carbonate)-vitamin D 500 mg-400 intl units oral tablet 1 tablet, By Mouth, Daily, ^1R1., # 28 tablet, 0 Refills, Maintenance, 10/08/22 16:58:00 EDT, [facility], 28, TAKE ONE TABLET BY [...] capsule, 6 Refills, Maintenance, 08/07/22 12:13:00 EST, [facility], 176, cm, 08/07/22 11:37:00 EST, [...] Gm, 11 Refills, Maintenance, 08/07/22 12:12:00 EST, [facility]/pharmacy #[id number], 30, USE 1 SPRAY(S) INTO EACH NOSTRIL TWICE A DAY, 176, cm,08/07/22 11:37:00 EST, Height, 79.8, kg, 07/31/22 2... Start Date: 08/07/22 Status: Ordered folic acid 1 mg oral tablet 1, tablet, By Mouth, Daily, R1., # 30 tablet, Refills 5, Tot. Refills 5, Maintenance, 10/06/22 4:59:00 EDT, Route to Pharmacy Electronically, [facility], 176, cm, 09/07/22 8:56:00 EDT, Height, [...] 09/03/22 14:50:00 EDT, Route to Pharmacy Electronically, [facility], 169, cm, 09/03/22 14:21:00 EDT, Height, 69, kg, 08/16/22 1:04:00 EST, Dry Weight Start Date: 09/03/22 Status: Ordered gabapentin 300 mg oral capsule 300 mg, 1, capsule, By Mouth, Daily at bedtime, note dose/frequency change, # 90 capsule, Refills 4, Tot. Refills 4, Maintenance, 11/05/22 11:05:00 EDT, Route to Pharmacy Electronically, [facility], 175, cm, 11/05/22 10:21:00 EDT, Height, 88.9... Start Date: 11/05/22 Stop Date: 01/29/24 Status: Ordered hydrOXYzine hydrochloride 10 mg oral tablet 2 tablet, By Mouth, 2 times a day, PRN NEEDED FOR ANXIETY (VIAL), # 30 tablet, 3 Refills, Maintenance, 09/24/22 17:01:00 EDT, [facility], 176, cm, 09/07/22 8:56:00 EDT, Height, 82.1, kg, 09/07/22 8:59:00 EDT, Dry Weight Start Date: 09/24/22 Status: Ordered lactulose 10 gm/15 ml oral syrup 15 mL, By Mouth, 2 times a day, # 120 mL, 6 Refills, Maintenance, 09/22/22 12:15:00 EDT, [facility], 4, TAKE 15ML BY MOUTH TWO TIMES A DAY, 176, cm, 09/07/22 8:56:00 EDT, Height, 82.1, kg, 09/07/22 8:59:00 EDT, Dry Weight Start Date: 09/22/22 Status: Ordered Lidoderm 5% film 1 patch, Topically, Daily, remove patches after 12 hours NSAIDS contraindicated High dose tylenol contraindicated remove patches after 12 hours Nueropathy, # 30 patch, 5 Refills, Maintenance, 11/05/22 11:04:00 EDT, [facility], Partial klaudia... Start Date: 11/05/22 Status: Ordered Melatonin 3 mg oral tablet 1 tablet, By Mouth, Daily at bedtime, PRN NEEDED FOR INSOMNIA (PACKAGE IN TRAY)^1R4, # 60 tablet, 5 Refills, Maintenance, 06/12/22 18:11:00 EST, [facility], 60, TAKE 1 TABLET [...] 09/03/22 14:53:00 EDT, [facility], Partial fill upon patient request if [...] 11/05/22 11:31:00 EDT, Route to Pharmacy Electronically, [facility], Partial fill upon patient request if the prescription is for a schedule II opioid drug... Start Date: 11/05/22 Status: Ordered Tab-A-Jesse oral tablet 1 tablet, By Mouth, Daily, # 90 tablet, 9 Refills, 08/07/22 12:27:00 EST, [facility]/pharmacy #[id number], 28, 1tablet By Mouth Daily, 176, cm, 08/07/22 11:37:00 EST, Height, 79.8, kg, 07/31/22 22:40:00 EST, DryWeight Start Date: 08/07/22 Status: Ordered traZODone 50 mg oral tablet 2 tablets, By Mouth, Daily at bedtime, # 60 each, Refills 5, Tot. Refills 5, Maintenance, 09/03/22 17:13:00 EDT, Route to Pharmacy Electronically, [facility], 169, cm, 09/03/22 14:21:00 EDT, Height, [...] 03/13/22 8:37:00 EDT, Route to Pharmacy Electronically, [facility], 175, cm, 01/06/22 10:34:00 EDT, Height, 78.3, kg, 12/26/2218:05:00 EDT, Dry Weight Start Date: 03/13/22 Status: Ordered Vitamin B6 50 mg oral tablet 1, tablet, By Mouth, Daily, R1., # 90 tablet, Refills 4, Maintenance, 11/16/22 13:39:00 EDT, Route to Pharmacy Electronically, [facility], 175, cm, 11/13/22 10:42:00 EDT, Height, 88.9, kg, 10/21/22 20:41:00 EDT, Dry Weight Start Date: 11/16/22 Status: Ordered Voltaren 1% topical gel 1 application, Topically, 4 times a day, PRN for pain, # 100 Gm, 0 Refills, Maintenance, 11/13/22 11:22:00 EDT, Gel, [facility], Partial fill upon patient request if [...] tablet, 3 Refills, Maintenance, 10/01/22 15:19:00 EDT, [facility], 176, cm, 09/07/22 8:56:00 EDT, Height, [...] RN Member Role: Primary Care Nurse Name: Malgorazta Marinelli RN Position: [facility] [...] Primary Care Member Role: PCP Address: Address: [address] [place] [address] [facility] [address] Name: Neida Ballard RN Position: [facility] [...] Role: Lifetime Consulting Provider Address: Address: [address] [place] [address] Name: Ge Covarrubias RN Position: [facility] [...] Member Role: Lifetime Consulting Physician Address: Address: [address] [place] [address] [address] [facility] [place] [address]- Name: Darlene Rodrigez RN Position: [facility] [...] Team Related Persons Name: MARLEN CABEZAS Address: [place] [address] Name: MARLEN CABEZAS Address: [place] [address] Name: NICK CABEZAS Name: GEMA CABEZAS Address: [place] [address]
--- OUTSIDE RECORDS SUMMARY | 2023-12-15 20:50 | XMS_ITS | Continuity of Care Document ---
Author Organization [facility] Address [address] [place] [address]- Care Team Providers Care Senior Business Process Analyst Name Role Phone Jany Baig DO Primary Care Physician ( [phone] Encounter [facility] [id number] Date(s): 12/03/20 - 12/10/20 [facility] [address] [place] [address]- Encounter Diagnosis Subdural hematoma, chronic(Discharge Diagnosis) - 12/03/20 Fall at home(Discharge Diagnosis) - 12/03/20 Hypokalemia(Discharge Diagnosis) - 12/03/20 ANA LUISA (obstructive sleep apnea)(Discharge Diagnosis) - 12/03/20 Alcohol abuse(Discharge Diagnosis) - 12/03/20 Hypomagnesemia(Discharge Diagnosis) - 12/03/20 Insomnia(Discharge Diagnosis) - 12/03/20 Attending Physician: Jem Paulino MD Allergies, Adverse Reactions, Alerts Substance Reaction [...] acel(Tdap) 11/25/15 Given influenza virus vaccine, inactivated 9/1/18 Nikhil rded [...] n 1Admin Note: #2 2Result Comment: [04/29/2017] 29430-940-11 3Admin Note: FLUARIX 4Admin Note: 3 RDINJ Medications baclofen 10 mg oral tablet 1, tablet, By Mouth, 3 times a day, # 90 tablet, Refills 0, Tot. Refills 0, Maintenance, 11/22/20 16:13:00 EDT, Route to Pharmacy Electronically, [facility], 178, cm, 11/12/20 15:32:00 EDT, Height, 84.9, kg, 08/31/20 1:07:00 EDT, Dry Weight Start Date: 11/22/20 Status: Ordered chantix 1mg tablet 1 tablet, By Mouth, 2 times a day, # 56 tablet, 0 Refills, Acute, 11/22/20 16:13:00 EDT, [facility], 178, cm, 11/12/20 15:32:00 EDT, Height, 84.9, kg, 08/31/20 1:07:00 EDT, Dry Weight Start Date: 11/22/20 Status: Ordered Co Q-10 100 mg oral capsule See Instructions, TAKE 1 CAPSULE BY MOUTH FOUR TIMES DAILY, # 120 capsule, 7 Refills, Maintenance, [facility], 178, cm, 10/22/20 13:17:00 EDT, Height, 84.9, kg, 08/31/20 1:07:00 EDT, Dry Weight Start Date: 11/01/20 Status: Ordered Co Q-10 100 mg oral capsule 1 capsule, By Mouth, 4 times a day, # 120 capsule, 11 Refills, Maintenance, 11/21/19 10:36:00 EDT, [facility]/pharmacy #[id number], 175, cm, 08/24/19 14:14:00 EDT, Height, 81.2, kg, 02/04/19 1:40:00 EDT, Dry Weight Start Date: 11/21/19 Stop Date: 11/15/20 Status: Ordered fluticasone 50 mcg/inh nasal spray See Instructions, SPRAY 1 SPRAY INTO EACH NOSTRIL TWICE A DAY, # 16 Gm, 5 Refills, 07/09/20 11:38:00 EST, [facility], 30, SPRAY 1 SPRAY INTO EACH NOSTRIL TWICE A DAY, 175, cm, 04/02/20 0:35:00 EDT, Height, 100, kg, 04/02/20 0:35:00 EDT, Dry We... Start Date: 07/09/20 Status: Ordered gabapentin 600 mg oral tablet 1 tablet, By Mouth, 4 times a day, # 120 tablet, 0 Refills, Maintenance, 11/22/20 16:13:00 EDT, [facility], 178, cm, 11/12/20 15:32:00 EDT, Height, 84.9, kg, 08/31/20 1:07:00 EDT, Dry Weight Start Date: 11/22/20 Status: Ordered hydrOXYzine hydrochloride 25 mg oral tablet 1 TO 2 TABLETS, By Mouth, 3 times a day, PRN NEEDED FOR ANXIETY (VIAL), # 60 tablet, 3 Refills, Maintenance, 10/07/20 16:49:00 EDT, [facility], 178, cm, 08/31/20 11:25:00 EDT, Height, 84.9, kg, 08/31/20 1:07:00 EDT, Dry Weight Start Date: 10/07/20 Status: Ordered Keppra 500 mg oral tablet 1 tablet = 500 mg, By Mouth, 2 times a day, # 14 tablet, 0 Refills, Maintenance, 11/01/20 11:59:00 EDT, Tablet, [facility], Partial fill upon patient request if the prescription is for a schedule II opioid drug., 178, cm, 10/22/20 13:17:... Start Date: 11/01/20 Stop Date: 11/08/20 Status: Ordered melatonin 3 mg oral tablet 1 tablet = 3 mg, By Mouth, Daily at bedtime, PRN for insomnia, # 60 tablet, 4 Refills, Maintenance,07/18/20 17:30:00 EST, Tablet, [facility], 175, cm, 04/02/20 0:35:00 EDT, Height, 100, kg, 04/02/20 0:35:00 EDT, Dry Weight Start Date: 07/18/20 Status: Ordered pantoprazole 40 mg oral delayed [...] EDT, Tablet, [facility], 175, cm, 08/24/19 14:14:00 EDT,Height, 81.2, kg, 02/04/19 1:40:00 EDT, Dry Weight Start Date: 10/06/19 Status: Ordered sertraline 50 mg oral tablet 1 tablet, By Mouth, Daily, TAKE ALONG WITH A 100MG TABLET to equal 150mg daily, # 90 tablet, 1 Refills, Maintenance, 10/06/19 15:57:00 EDT, [facility], 175, cm, 08/24/19 14:14:00 EDT, Height,81.2, kg, 02/04/19 1:40:00 EDT, Dry Weight Start Date: 10/06/19 Status: Ordered sildenafil 50 mg oral tablet 1 tablet = 50 mg, By Mouth, Daily, PRN erectile dysfunction, 1 hour before sexual activity, # 6 tablet, 5 Refills, Maintenance, 03/11/20 14:37:00 EDT, Tablet, [facility]/pharmacy #[id number], 175, cm, 08/24/19 14:14:00 EDT, Height, 81.2, kg, 02/04/19 1:40:00 EDT,... Start Date: 03/11/20 Status: Ordered Tab-A-Jesse oral tablet See Instructions, TAKE 1 TABLET BY MOUTH ONCE A DAY, # 30 tablet, 10 Refills, Maintenance, [facility], 28, TAKE 1 TABLET BY MOUTH ONCE A DAY, 175, cm, 04/02/20 0:35:00 EDT, Height, 100, kg, 04/02/20 0:35:00 EDT, Dry Weight Start Date: 07/18/20 Status: Ordered traMADol 50 mg oral tablet [...] 0 Refills, Maintenance, 10/22/20 17:52:00 EDT, Tablet, [facility]/pharmacy #[id number], Partial fill upon patient request if [...] Pharmacy Electronically, [facility], 178, cm, 10/22/20... Start Date: 11/01/20 Status: Ordered Vitamin B1 100 mg oral tablet 1, tablet, By Mouth, Daily, # 90 tablet, Refills 2, Tot. Refills 0, Acute, 09/05/20 17:32:00 EDT, Route to Pharmacy Electronically, [facility], 178, cm, 08/31/20 11:25:00 EDT, Height, 84.9, kg, 08/31/20 1:07:00 EDT, Dry Weight Start Date: 09/05/20 Status: Ordered Xifaxan 550 mg oral tablet 1 tablet, By Mouth, 2 times a day, # 60 tablet, 0 Refills, Maintenance, 04/16/20 14:45:00 EST, [facility]/pharmacy #[id number], 175, cm, 04/02/20 [...] Effective Dates Health Status Clinical Service Informant Alcohol abuse Discharge Diagnosis 12/03/20 ANA LUISA (obstructive sleep apnea) Discharge Diagnosis 12/03/20 Hypokalemia Discharge Diagnosis 12/03/20 Hypomagnesemia Discharge Diagnosis 12/03/20 Subdural hematoma, chronic Discharge Diagnosis 12/03/20 Fall at home Discharge Diagnosis 12/03/20 Insomnia Discharge Diagnosis 12/03/20 Vital Signs Most recent to oldest [Reference Range]: 1 Height 178 cm (12/03/20 1:52 PM) Weight 81.4 kg (12/03/20 1:52 PM) Oxygen Saturation [94-100 %] 100 % (12/03/20 1:52 PM) Pulse Rate [55-90 bpm] 79 bpm (12/03/20 1:52 PM) Body Mass Index [18.5-24.99] 25.69 *H* (12/03/20 1:52 PM) Blood Pressure [90-138/55-84 mm Hg] 129/ 78mm Hg (12/03/20 1:52 PM) Temperature [96.8-100.4 DegF] 98.1 DegF (12/03/20 1:52 PM) Mode of Delivery (Oxygen) Room air (12/03/20 1:52 PM) Blood pressure sites Arm, left (12/03/20 1:52 PM) Temperature Route Temporal (12/03/20 1:52 PM) Dry Weight 81.4 kg (12/03/20 1:52 PM) Social History Social History Type Response Smoking Status 10 or more cigarette s (1/2 pack or more)/day in last 30 days entered on: 02/04/19 Sex
--- OUTSIDE RECORDS SUMMARY | 2023-12-15 20:50 | XMS_ITS | Continuity of Care Document ---
Author Organization [facility] Address [address] [place] [address]- Care Team Providers Care Iron Piler Name Role Phone Jany Baig DO Primary Care Physician ( [phone] Encounter [facility] Date(s): 04/09/23 - 08/07/23 [facility] [address] [place], [place] [address] Attending Physician: Jany Baig DO Allergies, [...] (oldterm) 08/02/12 Give n 1Result Comment: [facility]: [id number] 2Result Comment: [04/29/2017] 43279-317-86 3Admin Note: FLUARIX 4Admin Note: 3 RDINJ 5Admin Note: #2 Medications acamprosate 333 mg oral delayed release tablet 2 tablet = 666 mg, By Mouth, 3 times a day, # 180 tablet, 1 Refills, Maintenance, 07/28/23 11:04:00EST, EC Tablet, [facility], Partial fill upon patient request if [...] tablet, 2 Refills, Maintenance, 07/28/23 11:06:00 EST, [facility], 175, cm, 07/28/23 9:11:00 EST, Height, 61.3, kg, 07/12/23 23:27:00 EST, Dry Weight Start Date: 07/28/23 Status: Ordered amLODIPine 5 mg oral tablet 1 tablet, By Mouth, Daily, ^1R1., # 30 tablet, 2 Refills, Maintenance, 06/02/23 8:00:00 EST, [facility], 175, cm, 03/22/23 6:50:00 [...] 07/28/23 11:10:00 EST, Route to Pharmacy Electronically, [facility], Partial fill upon patient request if [...] Gm, 12 Refills, Maintenance, 07/28/23 11:06:00 EST, [facility], 28, APPLY TOPICALLY TO AFFECTED AREA(S) [...] Gm, 1 Refills, Maintenance, 07/28/23 12:07:00 EST, [facility], 30, USE 1 SPRAY(S) INTO EACH [...] 07/28/23 12:08:00 EST, Route to Pharmacy Electronically, [facility], 175, cm, 07/28/23 9:11:00 EST, Height, 61.3, kg, 07/12/23 23:27:00 EST, Dry Weight Start Date: 07/28/23 Status: Ordered furosemide 20 mg oral tablet 20 mg, 1, tablet, By Mouth, Every other day, # 30 tablet, Refills 1, Tot. Refills 1, Maintenance, 07/28/23 12:08:00 EST, Route to Pharmacy Electronically, [facility], Partial fill upon patient request if the prescription is for a schedule II... Start Date: 07/28/23 Status: Ordered gabapentin 300 mg oral capsule 300 mg, 1, capsule, By Mouth, Daily at bedtime, note dose/frequency change, # 30 capsule, Refills 1, Tot. Refills 1, Maintenance, 07/28/23 12:09:00 EST, Route to Pharmacy Electronically, [facility], 175, cm, 07/28/23 9:11:00 EST, Height, [...] tablet, 3 Refills, Maintenance, 07/28/23 12:10:00 EST, [facility], 175, cm, 07/28/23 9:11:00 EST, Height, 61.3, kg,07/12/23 23:27:00 EST, Dry Weight Start Date: 07/28/23 Status: Ordered lactulose 10 gm/15 ml oral syrup 30 mL = 20 Gm, By Mouth, 3 times a day, for 30 days, # 2,700 mL, 2 Refills, Acute 10/26/23 12:13:00EDT, 07/28/23 12:13:00 EST, Syrup, [facility], Partial fill upon patient request [...] 60 tablet, 11 Refills, Maintenance,07/28/23 12:09:00 EST, [facility], 175, cm, 07/28/23 9:11:00 EST, Height, [...] tablet, 5 Refills, Maintenance, 07/28/23 12:09:00 EST, [facility], 60, 1 tablet By Mouth Daily [...] 07/28/23 12:11:00 EST, Route to Pharmacy Electronically, [facility], 175, cm, 07/28/23 9:11:00EST, Height, 61.3, [...] 07/28/23 12:12:00 EST, Route to Pharmacy Electronically, [facility], 175, cm, 07/28/23 9:11:00 EST, Height, 61.3, kg, 07/12/23 23:27:00 EST, Dry Weight Start Date: 07/28/23 Status: Ordered spironolactone 25 mg oral tablet 1, tablet, By Mouth, Daily, ^1R2., # 30 tablet, Refills 5, Tot. Refills 5, Maintenance, 04/14/23 12:41:00 EDT, Route to Pharmacy Electronically, [facility], 175, cm, 03/22/23 6:50:00 EDT, Height, 77.5, kg, 03/20/23 11:30:00 EDT, Dry Weight Start Date: 04/14/23 Status: Ordered Tab-A-Jesse oral tablet 1 tablet, By Mouth, Daily, R1., # 30 tablet, 5 Refills, Maintenance, 05/06/23 19:16:00 EST, [facility], 30, TAKE 1 TABLET [...] 02/26/23 10:11:00 EDT, Route to Pharmacy Electronically, [facility], 175, cm, 12/03/22 11:50:00 EDT, Height,84, kg, 02/12/23 11:30:00 EDT, Dry Weight Start Date: 02/26/23 Status: Ordered traZODone 50 mg oral tablet 2, tablet, By Mouth, Daily at bedtime, ^2R4., # 60 tablet, Refills 5, Tot. Refills 5, Maintenance, 07/28/23 12:12:00 EST, Route to Pharmacy Electronically, [facility], 175, cm, 07/28/23 9:11:00 EST, Height, [...] 02/09/23 23:18:00 EDT, Route to Pharmacy Electronically, [facility], 175, cm, 12/03/22 11:50:00 EDT, Height, 88.9, kg, 10/21/22 20:41:00 EDT, Dry Weight Start Date: 02/09/23 Status: Ordered Vitamin B1 100 mg oral tablet 1, tablet, By Mouth, Daily, # 90 tablet, Refills 3, Tot. Refills 3, Maintenance, 07/28/23 12:12:00 EST, Route to Pharmacy Electronically, [facility], 175, cm, 07/28/23 9:11:00 EST, Height, 61.3, kg, 07/12/23 23:27:00 EST, Dry Weight Start Date: 07/28/23 Status: Ordered Vitamin B6 50 mg oral tablet 1, tablet, By Mouth, Daily, R1., # 90 tablet, Refills 4, Maintenance, 11/16/22 13:39:00 EDT, Route to Pharmacy Electronically, [facility], 175, cm, 11/13/22 10:42:00 EDT, Height, 88.9, kg, 10/21/22 20:41:00 EDT, Dry Weight Start Date: 11/16/22 Status: Ordered Vitamin B6 50 mg oral tablet 1, tablet, By Mouth, Daily, R1., # 90 tablet, Refills 4, Tot. Refills 4, Maintenance, 07/28/23 12:11:00 EST, Route to Pharmacy Electronically, [facility], 175, cm, 07/28/23 9:11:00 EST, Height, [...] each, 1 Refills, Maintenance, 07/28/23 14:33:00 EST, [facility], 175, cm, 07/28/23 9:11:00 EST, Height, [...] Team Personnel Name: Shira Galindo RN Position: [facility] RN Member Role: Primary Care Nurse Name: Lisa Nunez RN Position: [facility] RN Member Role: Primary Care Nurse Name: Alexandra Colmenares RN Position: [facility] ED RN W/OE and Tasks Member Role: Primary Care Nurse Name: Garima Manzano RN Position: [facility] RN Member Role: Primary Care Nurse Name: Malgorzata Marinelli RN Position: [facility] RN Member Role: Primary Care Nurse Name: Joyce Roach RN Position: [facility] ED RN W/OE and Tasks Member Role: Primary Care Nurse Name: Mary Suazo RN Position: [facility] RN Member Role: Primary Care Nurse Name: Lucina Peralta RN Position: [facility] RN Member Role: Primary Care Nurse Name: Maria Esther Craig LPN Position: [facility] RN Member Role: Primary Care Nurse Name: Andres Pressley RN Position: [facility] ED RN W/OE and Tasks Member Role: Primary Care Nurse Name: Jany Baig DO Position: [facility] Physician - Primary Care Member Role: PCP Address: Address: [address] [place] [address] Adult [facility] [place] [address]- Name: Kaye Payne RN Position: [facility] RN Member Role: Primary Care Nurse Name: Garima Curry RN Position: [facility] RN [...] Care Nurse Name: Ashok Kevin RN Position: [facility] RN Member Role: Primary Care Nurse Name: Cody Garcia Position: [facility] Associate Professional Member Role: Lifetime Consulting Provider Address: Address: [address] [place] [address]- Name: Paige Nascimento RN Position: [facility] RN Member Role: Primary Care Nurse Name: Ge Covarrubias RN Position: [facility] RN Member Role: Primary Care Nurse Name: Orin Elmore RN Position: [facility] ED RN W/OE and Tasks Member Role: Primary Care Nurse Name: Noe RNAllegra Position: [facility] AMB Nurse Member Role: Primary Care Nurse Name: Shayan Pandya MD Position: [facility] Renal MD Member Role: Lifetime Consulting Physician Address: Address: [address] [place] [address] [address] [facility], [place] [address]- Name: Kimberley Pittman RN Position: [facility] RN Member Role: Primary Care Nurse Name: Darlene Rodrigez RN Position: [facility] RN Member Role: Primary Care Nurse Name: Dixie Duke RN Position: S RN Member Role: Primary Care Nurse Name: Kwan Mills RN Position: [facility] ED RN W/OE and Tasks Member Role: Primary Care Nurse Name: Ingrid Verdugo RN Position: [facility] RN Member Role: Primary Care Nurse Name: Monica Rowell RN Position: [facility] RN Member Role: Primary Care Nurse Name: Jimi Fitzpatrick RN Position: [facility] RN Member Role: Primary Care Nurse Care Team Related Persons Name: MARLEN CABEZAS Address: [address] [place] [address] Name: MARLEN CABEZAS Address: [address] [place] [address] Name: NICK CABEZAS Name: GEMA CABEZAS Address: [address] [place] [address] Name: ELTON CHENG Address: home [address] [place] [id number]
--- OUTSIDE RECORDS SUMMARY | 2023-12-15 20:50 | XMS_ITS | Continuity of Care Document ---
Author Organization [facility] Address [address] [place] [address]- Care Team Providers Care Wire Steward Name Role Phone Jany Baig DO Primary Care Physician Encounter [facility] Date(s): 08/14/21 - 09/13/21 [facility] [address] [place] [address]- Allergies, Adverse Reactions, Alerts Substance Reaction Severity [...] (oldterm) 08/02/12 Give n 1Result Comment: [04/29/2017] [id number] 2Admin Note: FLUARIX 3Admin Note: 3 RDINJ 4Admin Note: #2 Medications acamprosate 333 mg oral delayed release tablet = 333 mg, By Mouth, 3 times a day with meals, 0 Refills, Maintenance, 08/28/21 10:29:00 EDT, Tablet, Partial fill upon patient request if the prescription is for a schedule II opioid drug. Start Date: 08/28/21 Status: Ordered Co Q-10 100 mg oral capsule 1 capsule, By Mouth, 4 times a day, # 120 capsule, 6 Refills, [facility], 174, cm, 02/27/2115:17:00 EDT, Height, 81, kg, 02/27/21 14:06:00 EDT, Dry Weight Start Date: 07/08/21 Status: Ordered fluticasone 50 mcg/inh nasal spray See Instructions, USE 1 SPRAY INTO EACH NOSTRIL TWICE A DAY, # 16 Gm, 5 Refills, [facility], 30, USE 1 SPRAY INTO EACH NOSTRIL TWICE A DAY, 174, cm, 07/14/21 8:16:00 EST, Height, 81, kg, 02/27/21 14:06:00 EDT, Dry Weight Start Date: 08/04/21 Status: Ordered hydrOXYzine hydrochloride 25 mg oral tablet 1 TO 2 TABLETS, By Mouth, 3 times a day, PRN NEEDED FOR ANXIETY (VIAL), # 60 tablet, 0 Refills, [facility], 174, cm, 08/14/21 14:21:00 EST, Height, 81, kg, 02/27/21 14:06:00 EDT, Dry Weight Start Date: 08/18/21 Status: Ordered lactulose 10 gm/15 ml oral syrup See Instructions, TAKE 30ML BY MOUTH THREE TIMES DAILY NEEDED TO ACHEIVE 3-4 BOWL MOVEMENTS PER DAY, # 3,000 mL, 10 Refills, [facility], 30, TAKE 30ML BY [...] TRAY), 17... Start Date: 06/02/21 Status: Ordered methadone 10 mg oral tablet 3 tablet = 30 mg, By Mouth, Daily, 0 Refills, Maintenance, 08/28/21 10:24:00 EDT, Tablet, Partial fill upon patient request if the prescription is for a schedule II opioid drug. Start Date: 08/28/21 Status: Ordered MiraLax Powder 1 pack/packet = [...] Dry Weight Start Date: 07/08/21 Status: Ordered rifAXIMin 550 mg oral tablet 1 tablet = 550 mg, By Mouth, 2 times a day, 0 Refills, Maintenance, 08/28/21 10:24:00 EDT, Tablet, Partial fill upon patient request if the prescription is for a schedule II opioid drug. Start Date: 08/28/21 Status: Ordered sertraline 50 mg oral tablet 3 tablet = 150 mg, By Mouth, Daily, 0 Refills, Maintenance, 08/28/21 10:29:00 EDT, Tablet, Partial fill upon patient request if the prescription is for a schedule II opioid drug. Start Date: 08/28/21 Status: Ordered Tab-A-Jesse oral tablet 1 tablet, By Mouth, Daily, # 90 tablet, 9 Refills, [facility], 28, TAKE 1 TABLET [...] [facility], 174,cm, 08/14/21 14:21:00 EST, Height, 81, kg, 02/27/21... Start Date: 08/18/21 Status: Ordered varenicline 1mg tablet 1 tablet, By Mouth, 2 times a day, INSTR:TO START AFTER 0.5 MG TABS, # 56 tablet, 2 Refills, [id number], 172, cm, 08/28/21 23:35:00 EDT, Height, 85.4, kg, 08/20/21 16:20:00 EST, Dry Weight Start Date: 09/01/21 Status: Ordered Vitamin B1 100 mg oral tablet 1, tablet, By Mouth, Daily, # 90 tablet, Refills 1, Route to Pharmacy Electronically, [facility] [...]
--- OUTSIDE RECORDS SUMMARY | 2023-12-15 20:50 | XMS_ITS | Continuity of Care Document ---
Author Organization [facility] Address [address] [place] [address]- Care Team Providers Care Instructional Developer Name Role Phone Jany Baig DO Primary Care Physician Encounter [facility] Date(s): 12/03/20 - 02/19/21 [facility] [address] [place] [address]- Attending Physician: Jany Baig DO Allergies, Adverse [...] influenza virus vaccine, inactivated 2 04/29/17 Gi celopatra influenza virus vaccine, inactivated 04/15/16 Give n influenza virus vaccine, inactivated 03/16/15 Give n influenza virus vaccine, inactivated 03/12/14 Give n influenza virus vaccine, inactivated 3 02/28/13 Gi cleopatra pneumococcal 23-valent vaccine 03/16/15 Given hepatitis B adult vaccine 4 02/28/13 Given Pneumococcal Vaccine (oldterm) 08/02/12 Given Tet/diphth/pertussis, acel (oldterm) 08/02/12 Give n 1Admin Note: #2 2Result Comment: [04/29/2017] [id number] 3Admin Note: FLUARIX 4Admin Note: 3 RDINJ Medications baclofen 10 mg oral tablet 1, tablet, By Mouth, 3 times a day, # 90 tablet, Refills 0, Route to Pharmacy Electronically, [facility], 174, cm, 02/11/21 12:09:00 EDT, Height, 86.6, kg, 02/06/21 14:20:00 EDT, Dry Weight Start Date: 02/19/21 Status: Ordered chantix 1mg tablet 1 tablet, By Mouth, 2 times a day, # 56 tablet, 0 Refills, Acute, 11/22/20 16:13:00 EDT, [facility], 178, cm, 11/12/20 15:32:00 EDT, Height, 84.9, kg, 08/31/20 1:07:00 EDT, Dry Weight Start Date: 11/22/20 Status: Ordered Co Q-10 100 mg oral capsule See Instructions, TAKE 1 CAPSULE BY MOUTH FOUR TIMES DAILY, # 120 capsule, 7 Refills, Maintenance, [facility], 178, cm, 10/22/20 13:17:00 EDT, [...] DAY, # 16 Gm, 5 Refills, Maintenance, [facility], 30, USE 1 SPRAY INTO EACH NOSTRIL TWICE A DAY, 178, cm, 01/07/21 17:59:00 EDT, Height, 81.4, kg, 12/03/20 13:52:00 EDT, Dry Weight Start Date: 01/17/21 Status: Ordered gabapentin 600 mg oral tablet 1 tablet, By Mouth, 4 times a day, # 120 tablet, 0 Refills, [facility], 174, cm, 02/11/21 12:09:00 EDT, Height, 86.6, kg, 02/06/21 14:20:00 EDT, Dry Weight Start Date: 02/19/21 Status: Ordered hydrOXYzine hydrochloride 25 mg oral tablet 1 TO 2 TABLETS, By Mouth, 3 times a day, PRN NEEDED FOR ANXIETY (VIAL), # 60 tablet, 2 Refills, [facility], 174, cm, 02/11/21 12:09:00 EDT, Height, 86.6, kg, 02/06/21 14:20:00 EDT, Dry Weight Start Date: 02/19/21 Status: Ordered Keppra 500 mg oral tablet 1 tablet = 500 mg, By Mouth, 2 times a day, # 14 tablet, 0 Refills, Maintenance, 11/01/20 11:59:00 EDT, Tablet, [facility], Partial fill upon patient request if the prescription is for a schedule II opioid drug., 178, cm, 10/22/20 13:17:... Start Date: 11/01/20 Stop Date: 11/08/20 Status: Ordered melatonin 3 mg oral tablet 1 tablet = 3 mg, By Mouth, Daily at bedtime, PRN for insomnia, # 60 tablet, 4 Refills, Maintenance,07/18/20 17:30:00 EST, Tablet, [facility], 175, cm, 04/02/20 0:35:00 EDT, Height, 100, kg, 04/02/20 0:35:00 EDT, Dry Weight Start Date: 07/18/20 Status: Ordered pantoprazole 40 mg oral delayed release tablet See Instructions, TAKE 1 TABLET BY MOUTH TWICE A DAY, # 60 tablet, 2 Refills, Maintenance, 178, cm,01/07/21 17:59:00 EDT, Height, 81.4, kg, 12/03/20 13:52:00 EDT, Dry Weight Start Date: 01/17/21 Status: Ordered sertraline 100 mg oral tablet 1 tablet = 100 mg, By Mouth, Daily, combine with 50mg tab to equal 150mg daily, # 90 tablet, 1 Refills, Maintenance, 10/06/19 15:57:00 EDT, Tablet, [facility], 175, cm, 08/24/19 14:14:00 EDT,Height, 81.2, kg, 02/04/19 1:40:00 EDT, Dry Weight Start Date: 10/06/19 Status: Ordered sertraline 50 mg oral tablet 1 tablet, By Mouth, Daily, TAKE ALONG WITH A 100MG TABLET to equal 150mg daily, # 90 tablet, 1 Refills, Maintenance, 10/06/19 15:57:00 EDT, [facility], 175, cm, 08/24/19 14:14:00 [...] DAY, # 30 tablet, 10 Refills, Maintenance, [facility], 28, TAKE 1 TABLET BY [...] Required Details, Route to Pharmacy Electronically, [facility], 174,cm, 02/11/21 12:09:00 EDT, Height, 86.6, kg, ... Start Date: 02/15/21 Status: Ordered Vitamin B1 100 mg oral tablet 1, tablet, By Mouth, Daily, # 90 tablet, Refills 2, Tot. Refills 0, Acute, 09/05/20 17:32:00 EDT, Route to Pharmacy Electronically, [facility], 178, cm, 08/31/20 11:25:00 EDT, Height, [...]
--- OUTSIDE RECORDS SUMMARY | 2023-12-15 20:50 | XMS_ITS | Continuity of Care Document ---
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 Name Role Phone Jany Baig DO Primary Care Physician [place] [facility] [place]07[place]22 - 09/08/[address] [address]- Encounter Diagnosis Subdural hematoma(Final) - 09/07/22 Discharge Disposition: A-D/C Home Attending Physician: Bernadette Peoples MD Admitting Physician: Bernadette Peoples MD Referring Physician: Not on Staff, Referring [...] n 1Result Comment: [facility]: [id number] 2Result Comment: [04/29/2017] [id number] 3Admin Note: FLUARIX 4Admin Note: 3 RDINJ 5Admin Note: #2 Medications acamprosate 333 mg oral delayed release tablet 1 tablet = 333 mg, By Mouth, 3 times a day, # 90 tablet, 4 Refills, Maintenance, 09/03/22 14:59:00 EDT, EC Tablet, [facility], Partial fill upon patient request if the prescription is for a schedule II opioid drug., 169, cm, 09/03/22 14:21:00... Start Date: 09/03/22 Status: Ordered amLODIPine 5 mg oral tablet See Instructions, TAKE 1 TABLET BY MOUTH ONCE A DAY^1R1, # 30 tablet, 5 Refills, Maintenance, 05/13/22 16:24:00 EST, [facility], 175, cm, 04/09/22 15:34:00 EDT, Height, 78.3, kg, 12/26/21 19:05:00 EDT, Dry Weight Start Date: 05/13/22 Status: Ordered baclofen 10 mg oral tablet See Instructions, TAKE 1 TABLET BY MOUTH THREE TIMES DAILY, # 90 tablet, Refills 0, Maintenance, 08/07/22 12:26:00 EST, Instructions Replace Required Details, Route to Pharmacy Electronically, [facility], 176, cm, 08/07/22 11:37:00 EST, Height... Start Date: 08/07/22 Status: Ordered Co Q-10 100 mg oral capsule See Instructions, TAKE 1 CAPSULE BY MOUTH FOUR TIMES DAILY, # 120 capsule, 6 Refills, Maintenance, 08/07/22 12:13:00 EST, [facility], 176, cm, 08/07/22 11:37:00 EST, [...] 10:40:00 EDT, Route to Pharmacy Electronically, [facility], Partial fill upon patient request if the prescription is for a schedule II opioid drug.... Start Date: 10/27/21 Stop Date: 01/20/23 Status: Ordered furosemide 20 mg oral tablet 1, tablet, By Mouth, Daily, R1., # 30 tablet, Refills 5, Tot. Refills 5, Maintenance, 09/03/22 14:50:00 EDT, Route to Pharmacy Electronically, [facility], 169, cm, 09/03/22 14:21:00 EDT, Height, 69, kg, 08/16/22 1:04:00 EST, Dry Weight Start Date: 09/03/22 Status: Ordered gabapentin 300 mg oral capsule 300 mg, 1, capsule, By Mouth, 2 times a day, note dose/frequency change, # 180 capsule, Refills 4, Tot. Refills 4, Maintenance, 09/03/22 14:55:00 EDT, Route to Pharmacy Electronically, [facility], 169, cm, 09/03/22 14:21:00 EDT, Height, 69, kg... Start Date: 09/03/22 Stop Date: 11/27/23 Status: Ordered gabapentin 300 mg oral capsule 300 mg, Capsule, By Mouth, 09/08/22 9:00:00 EDT Start Date: 09/08/22 Stop Date: 09/08/22 Status: Completed hydrOXYzine hydrochloride 25 mg oral tablet 1 TO 2 TABLETS, By Mouth, Daily at bedtime, PRN NEEDED FOR ANXIETY (VIAL), # 60 tablet, 11 Refills, Maintenance, 03/13/22 8:38:00 EDT, [facility], 175, cm, 01/06/22 10:34:00 EDT, Height, 78.3, kg, 12/26/21 19:05:00 EDT, Dry Weight Start Date: 03/13/22 Status: Ordered lactulose 10 gm/15 ml oral syrup See Instructions, TAKE 30ML BY MOUTH THREE TIMES DAILY NEEDED TO ACHEIVE 3-4 BOWL MOVEMENTS PER DAY, # 3,000 mL, 10 Refills, [facility], 30, 174, cm, 02/27/21 15:17:00 EDT, Height, 81, kg,02/27/21 14:06:00 EDT, Dry Weight Start Date: 07/02/21 Status: Ordered Lidoderm 5% film 1 patch, Topically, Daily, remove patches after 12 hours NSAIDS contraindicated High dose tylenol contraindicated remove patches after 12 hours Nueropathy, # 30 patch, 5 Refills, Maintenance, 09/03/22 16:34:00 EDT, [facility], Partial klaudia... Start Date: 09/03/22 Status: Ordered magnesium oxide 400 mg oral tablet 1 tablet, By Mouth, 2 times a day, # 60 tablet, 11 Refills, Maintenance, 03/13/22 8:37:00 EDT, [facility], 175, cm, 01/06/22 10:34:00 EDT, Height, 78.3, kg, 12/26/21 19:05:00 EDT, Dry Weight Start Date: 03/13/22 Status: Ordered Melatonin 3 mg oral tablet 1 tablet, By Mouth, Daily at bedtime, PRN NEEDED FOR INSOMNIA (PACKAGE IN TRAY)^1R4, # 60 tablet, 5 Refills, Maintenance, 06/12/22 18:11:00 EST, [facility], 60, TAKE 1 TABLET [...] 09/03/22 14:53:00 EDT, Route to Pharmacy Electronically, [facility], Partial fill upon patient request if the prescription is for a schedule II opioid drug... Start Date: 09/03/22 Stop Date: 03/02/23 Status: Ordered PHENobarbital 30 mg oral tablet See Instructions, Taper 09/08-Day 1 -90mg Daily Day 2-3-60mg BID Day 4-5 30mg BID, # 15 tablet, 0 Refills, Maintenance, 09/08/22 15:05:00 EDT, [facility], Partial fill upon patient request if the prescription is for a schedule II op... Start Date: 09/08/22 Status: Ordered pyridoxine 50 mg oral tablet 50 mg, 1, tablet, By Mouth, Daily, for 90 days, # 90 tablet, Refills 4, Tot. Refills 4, Acute 01/15/23 11:42:00 EDT, 10/22/21 11:42:00 EDT, Route to Pharmacy Electronically, [facility], Partial fill upon patient request if [...] 90 tablet, 9 Refills, 08/07/22 12:27:00 EST, [id number], 28, 1tablet By Mouth Daily, 176, cm, 08/07/22 11:37:00 EST, Height, 79.8, kg, 07/31/22 22:40:00 EST, DryWeight Start Date: 08/07/22 Status: Ordered traZODone 50 mg oral tablet 2 tablets, By Mouth, Daily at bedtime, # 60 each, Refills 5, Tot. Refills 5, Maintenance, 09/03/22 17:13:00 EDT, Route to Pharmacy Electronically, [facility], 169, cm, 09/03/22 14:21:00 EDT, Height, 69, kg, 08/16/22 1:04:00 EST, Dry Weight Start Date: 09/03/22 Status: Ordered Vitamin B1 100 mg oral tablet 1, tablet, By Mouth, Daily, # 90 tablet, Refills 3, Maintenance, 03/13/22 8:37:00 EDT, Route to Pharmacy Electronically, [facility], 175, cm, 01/06/22 10:34:00 EDT, Height, 78.3, kg, 12/26/2218:05:00 EDT, Dry Weight Start Date: 03/13/22 Status: Ordered Xifaxan 550 mg oral tablet 1 tablet, By Mouth, 2 times a day, ^1R1,1R4., # 60 tablet, 1 Refills, Maintenance, 06/12/22 18:10:00 EST, [facility], 179, cm, 06/08/22 7:37:00 EST, Height, [...] Exam Date Time Procedure Performing Provider Status 09/07/22 7:[address] Head/Brain W/O Contrast Elvia Santacruz; Auth (Verified) Notes: (CT Head/Brain W/O Contrast) Reason For Exam: Trauma RESULT: CT Head/Brain W/O Contrast CT Head/Brain W/O Contrast INDICATION: Reason: Trauma; Clinical Question(s): Subarachnoid Hemorrhage; Special Instructions: [address] HEAD (i.e. at 7:30 am); Order Comment: TECHNIQUE: Noncontrast head CT using axial technique and reconstructed in axial and coronal planes.Iterative reconstruction techniques are used to optimize dose and image quality. CTDIvol Head: 48.20 mGy, DLP Head: 772 mGy*cm. COMPARISON: Earlier the same day. FINDINGS: Sole Leveling Machine Operator view findings, lines and tubes: None. BRAIN AND EXTRA-AXIAL SPACES: No parenchymal hemorrhage, midline shift, or mass effect. Clancy-white matter differentiation is wellpreserved. No acute infarct. Mild prominence of the ventricles and sulci consistent with parenchymal volume loss. Mild low-density white matter changes. No significant change in size of right frontal and right parietal subdural collections. No subarachnoid or epidural collections. CALVARIUM, SKULL BASE, AND SOFT TISSUES: No fractures or suspicious bony lesions. The paranasal sinuses and mastoid air cells are clear. Visualized orbits and globes are intact. The extracranial soft tissues are unremarkable. IMPRESSION: Unchanged size of right frontoparietal subdural hematomas. WSN: [id number] Ordering Physician: Jia Rhoades Dictated By: Gerard Espinal MD Dictated Date/Time: 09/07/22 8:24 am Reviewed By: Gerard Espinal MD Signed By: Gerard Espinal MD Signed Date/Time: 09/07/22 8:24 am Transcribed By: MIRNA Transcribed Date/Time: 09/07/22 8:22 am * Exam Date Time Procedure Performing Provider Status 09/07/22 3:08 AM Chest Portable Krystin Gruber; Auth (Verified) Notes: (Chest Portable) Reason For Exam: Chest Pain;Other: RESULT: Chest Portable Examination: Portable chest performed on 09/07/2022. History: Chest pain. Findings: A frontal view of the chest is compared to a prior study dated 08/14/2022. The cardiac and mediastinal silhouettes are within normal limits. The lungs are clear. Healed left rib fractures are noted. There is deformity of the left AC joint, which may be posttraumatic. Embolization coils within the upper abdomen and a TIPS shunt are seen. IMPRESSION: There is no acute cardiopulmonary disease. WSN: [id number] Ordering Physician: Tricia Morales Dictated By: Fide Glover MD Dictated Date/Time: 09/07/22 8:09 am Reviewed By: Fide Glover MD Signed By: Fide Glover MD Signed Date/Time: 09/07/22 8:09 am Transcribed By: MIRNA Transcribed Date/Time: 09/07/22 8:08 am * Exam Date Time Procedure Performing Provider Status 09/07/22 1:[address] Head/Brain W/O Contrast Stupak , Ol eg; Auth (Verified) Notes: (CT Head/Brain W/O Contrast) Reason For Exam: Trauma RESULT: CT Head/Brain W/O Contrast CT Head/Brain W/O Contrast HX OF PRESENT ILLNESS: EtOH, homeless. Reason: Trauma. Clinical Question(s): Hematoma. TECHNIQUE: Noncontrast head CT using axial technique and reconstructed in axial and coronal planes.Weight-based protocol using automatic tube modulation was used to optimize exposure parameters. CTDIvol Head: 46.50 mGy, DLP Head: 772 mGy*cm. COMPARISON: 08/24/2022, 08/14/2022, 07/30/2022. FINDINGS: BRAIN and EXTRA-AXIAL SPACES: There is a thin crescentic shaped slightly hyperdense subdural collection along the right parietal lobe measuring approximately 5.8 cm in length and up to 0.7 cm in thickness (2 2:82, 204:35). No evidence of mass effect or midline shift. There is an additional 1.2 x 1.3 cm triangular-shaped hyperdense subdural collection bordering the right anterior aspect of the falx cerebri (2 2:95, 204:12). No evidence of mass effect or midline shift. Clancy-white matter differentiation is well preserved. No acute infarct. Mild prominence of the ventricles and sulci consistent with parenchymal volume loss. Mild low-density white matter changes. CALVARIUM, SKULL BASE AND SOFT TISSUES: No fractures or suspicious bony lesions. The paranasal sinuses and mastoid air cells are clear. Visualized orbits and globes are intact. The extracranial soft tissues are unremarkable. IMPRESSION: Acute on chronic right frontal and parietal subdural hemorrhage. No significant mass effect or midline shift. Results were relayed by [employer] by Dr. Alvares to Tricia Carmen DO on 09/07/2022 at 2:00 AM. I have personally reviewed the images and I agree with this report. WSN: [id number] Ordering Physician: Tricia Morales Dictated By: Tushar Alvares MD Dictated Date/Time: 09/07/22 7:39 am Reviewed By: Gerard Espinal MD Signed By: Gerard Espinal MD Signed Date/Time: 09/07/22 7:44 am Transcribed By: MIRNA Transcribed Date/Time: 09/07/22 2:01 am Vital Signs Most recent to oldest [Reference Range]: 1 2 3 Height 176 cm (09/07/22 8:56 AM) Weight 82.1 kg (09/07/22 9:23 AM) 82 kg (09/07/22 8:56 AM) Oxygen Saturation [94-100 %] 99 % (09/08/22 12:00 PM) 99 % (09/08/22 10:00 AM) 95 % (09/08/22 8:00 AM) Pulse Rate [55-90 bpm] 88 bpm (09/08/22 12:00 PM) 93 bpm *H* (09/08/22 10:00 AM) 74 bpm (09/08/22 6:00 AM) Body Mass Index [18.5-24.99 kg/m2] 26.47 kg/m2 *H* (09/07/22 8:56 AM) Blood Pressure [90-138/55-84 mm Hg] 133/63mm Hg (09/08/22 12:00 PM) 131/63mm Hg (09/08/22 10:00 AM) 129/73mm Hg (09/08/22 8:00 AM) Respiratory Rate [16-30 br/min] 18 br/min (09/08/22 12:00 PM) 18 br/min (09/08/22 10:00 AM) 18 br/min (09/08/22 8:54 AM) Temperature [96.8-100.4 DegF] 98.1 DegF (09/08/22 10:00 AM) 98.0 DegF (09/08/22 6:00 AM) 98.3 DegF (09/08/22 2:00 AM) Mode of Delivery (Oxygen) Room air (09/08/22 12:00 PM) Room air (09/08/22 10:00 AM) Room air (09/08/22 8:00 AM) Blood pressure sites Arm, left (09/08/22 12:00 PM) Arm, left (09/08/22 10:00 AM) Arm, left (09/08/22 8:00 AM) Temperature Route Oral (09/08/22 10:00 AM) Axillary (09/08/22 6:00 AM) Axillary (09/08/22 2:00 AM) Dry Weight 82.1 kg (09/07/22 8:56 AM) Weight Obtained Via Bed scale (09/07/22 9:23 AM) Patient/family stated (09/07/22 8:56 AM) Dry Weight Obtained Via Bed scale (09/07/22 8:56 AM) Social History Social History Type Response Smoking Status 10 or more cigarette s (1/2 pack or more)/day in last 30 days entered on: 02/04/19 Sex History and physical note * Jia Rhoades MD: MODIFY, PERFORM, MODIFY, MODIFY Event Display: History and Physical Hospital Authored Date: Patient: ??BILL BASSETT ? Age:??47 Years?Sex:??Male?:??1975?? Chief Complaint Fall ?? Referring Physician:??Carmen Consulting Physician:??Richelle Reason for Consultation:??SDH History of Present Illness Bill Bassett is a 47-year-old man with a history of alcoholic cirrhosis, esophageal varices, and hepatic encephalopathy status post TIPS and multiple paracentesis procedures, as well as multiple intracranial bleeds secondary to alcohol-induced falls, who presents to [facility] after a fall from standing while intoxicated.?? He is currently intoxicated, so the history was somewhat limited.?? He reports that he does remember drinking last night and falling.?? He states the fall was related to his drinking.?? Does not recall if he was dizzy or lightheaded.?? Unsure if there was any headstrike.?? Work-up in the ED revealed a 5 to 6 mm right parietal subdural and smaller right frontal subarachn oid hematoma.?? Neurosurgery was consulted and recommended every 4 neurochecks, systolic blood pressure goals, holding chemical DVT prophylaxis, and repeat CT scan in 6 hours or sooner for an acute decline in GCS.?? As result, the patient was started on a nicardipine drip for blood pressure controland a trauma surgery consultation was requested.?? On my evaluation, the patient has no complaints.?? He denies headache, vision changes, nausea, vomiting, chest pain, shortness of breath, abdominal pain, back pain, and new extremity pain.?? He does have baseline right knee pain that limits his range of motion and strength. Review of Systems A 10 point review systems was negative except as documented in the HPI. Physical Exam Vitals & Measurements T:??98.5?F ?? IN:??94?? RR:??18?? BP:??160/94?? SpO2:??100%? General: no acute distress, sleepy but arousable, joseph vest in place Head: normocephalic, atraumatic, no hematomas, no deformities, right temporal/forehead abrasion Face: no ecchymosis, no abrasions, no wounds Eyes: pupils are 3mm, equal, round, and reactive; extraocular movement intact Ears: no blood in external auditory canal, no abrasions, no bentley's sign Nose: no epistaxis, no deformity Mandible: no deformity, no malocclusion Neck: no hematoma, no ecchymosis, no wounds, trachea midline Chest: joseph vest in place, symmetric, no deformity, sternum, chest wall, and clavicles are nontender to palpation, no crepitus appreciated, small abrasion overlying the lower sternum/xiphoid Heart: regular rate and rhythm Lungs: clear to auscultation bilaterally Abdomen: soft, mild lower abdominal distension, nontender, no wounds, no ecchymosis, no hematoma Pelvis: stable, nontender Back: no ecchymosis, no hematoma, right mid-back and left lower back abrasions, small blisters in the left lateral chest near the axilla (per patient, these are from a heating pad) Cervical spine: no midline deformities or stepoffs, no tenderness Thoracic spine: no midline deformities or stepoffs, no tenderness Lumbar spine: no midline deformities or stepoffs, no tenderness Extremities: no long bone deformities, no ecchymosis, no hematomas, bilateral knee abrasions, decreased range of motion of the right knee secondary to pain (baseline) but otherwise full active range of motion Neurologic: GCS15, decreased strength of the right knee secondary to pain but otherwise intact strength throughout, normal sensation, cranial nerves II-XII are intact and symmetric Vascular: extremities are warm and perfused Assessment/Plan Bill Bassett is a 47-year-old man with a history of alcoholic cirrhosis with??varices and hepatic encephalopathy requiring??TIPS/multiple paracenteses, as well as multiple intracranial bleeds secondary to alcohol-induced falls, who presented to [facility] after a fall while intoxicated.?? Imagingrevealed a??small right parietal subdural??and smaller right frontal subarachnoid,??for which neurosurgery was consulted and he will require??admission for ongoing observation and repeat CT head. ?? Injuries Small right parietal subdural??hematoma Smaller right frontal subarachnoid hematoma ?? Consultants Neurosurgery ?? Plan Admit to Trauma Surgery NPO/IVF for now Neurosurgery consulted, appreciate recommendations ? - Q4 neuro checks ? - HOB > 30 ? - SBP 100-140 ? - No chemical DVT prophylaxis for wno ? - Repeat CT head in 6 hours, or sooner for an acute decline in GCS (7:30am) CIWA, vitamins Nicardipine for SBP 100-140, wean as tolerated Zofran prn nausea Bowel regimen SCDs (hold chemical DVT ppx, per Neurosurgery recommendations) PT/Case Management consultations ?? [place] [phone] with any questions or concerns. ?? Seen and discussed with attending surgeon, Dr. Peoples. ?? Problem List/Past Medical History Ongoing AC joint derangement Alcohol abuse Alcoholic hepatitis, cirrhosis Anemia Anxiety and depression; admission to [facility] in 06/2015 Duodenal Ulcer; resolved ED (erectile dysfunction) Esophageal varices s/p TIPS Gynecomastia, male H/o Acute upper GI bleed due to variceal bleed H/O: substance abuse; reports sobriety since summer 2015 Heart murmur, systolic Hepatic encephalopathy Insomnia Sherie's Optic neuropathy Migraine Neuropathy Normocytic anemia ANA LUISA (obstructive sleep apnea) Overweight Patellar contusion, seen by IBRAHIMA spring 2015 Vitamin D insufficiency Historical Chronic depression Cirrhosis with alcoholism Ex-smoker Tobacco abuse Procedure/Surgical History TIPS - Transjugular intrahepatic portosystemic shunt: 03/18/15 EGD: 03/14/15 EGD: 11/03/14 Laryngoscopy in 1988 Home Medications Acamprosate: 333 mg = 1 tablet, By Mouth, 3 times a day Acetaminophen: 1 tablet, By Mouth, 4 times a day, PRN ( NEEDED FOR PAIN, MAX 4), PER DAY (VIAL. Amlodipine: See Instructions, TAKE 1 TABLET BY MOUTH ONCE A DAY^1R1 Baclofen: See Instructions, TAKE 1 TABLET BY MOUTH THREE TIMES DAILY Durable Medical Equipment: See Instructions, surgical, calf length 20-30 mm HgM79.89M79.606 Durable Medical Equipment (R aircast ankle-stirrup support brace): See Instructions, Dx: R inversion ankle [id number] Fluticasone Nasal: See Instructions, USE 1 SPRAY(S) INTO EACH NOSTRIL TWICE A DAY Folic Acid: 1 mg = 1 tablet, By Mouth, Daily Furosemide: See Instructions, TAKE 1 TABLET BY MOUTH ONCE A DAY^1R1 Furosemide: 1 tablet, By Mouth, Daily, R1. Gabapentin: 300 mg = 1 capsule, By Mouth, 2 times a day, note dose/frequency change HydrOXYzine: 1 TO 2 TABLETS, By Mouth, Daily at bedtime, PRN ( NEEDED FOR ANXIETY (VIAL)) Lactulose: See Instructions, TAKE 30ML BY MOUTH THREE TIMES DAILY NEEDED TO ACHEIVE 3-4 BOWL MOVEMENTS PER DAY Lidocaine Topical: 1 patch, Topically, Daily, remove patches after 12 hoursNSAIDS contraindicated High dose tylenol contraindicatedremove patches after 12 hoursNueropathy Magnesium Oxide: 1 tablet, By Mouth, 2 times a day Melatonin: 1 tablet, By Mouth, Daily at bedtime, PRN ( NEEDED FOR INSOMNIA (PACKAGE IN TRAY)^1R4) Miscellaneous Rx (Eucerin Original Healing Cream): See Instructions, apply 2 x a day for dry skindx: eczema ??L30.9 Multivitamin: 1 tablet, By Mouth, Daily Pantoprazole: 1 tablet, By Mouth, Daily, ^1R1. Paroxetine: 10 mg = 1 tablet, By Mouth, Daily Pyridoxine: 50 mg = 1 tablet, By Mouth, Daily Rifaximin: 1 tablet, By Mouth, 2 times a day, ^1R1,1R4. Thiamine: 1 tablet, By Mouth, Daily Trazodone: 2 ??tablets, By Mouth, Daily at bedtime Ubiquinone: See Instructions, TAKE 1 CAPSULE BY MOUTH FOUR TIMES DAILY Allergies NSAIDs Tylenol??(Cirrhosis) aspirin??(Hx GI Bleed) ibuprofen??(Hx of GI Bleed) Social History Alcohol Use: Past. Frequency: Several times per day. Other: 18 beers per day. Previous treatment: Inpatient., 04/17/2016 Employment/School Status: Unemployed. 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 Lives with: Father, Mother., 12/30/2013 Nutrition/Health Diet: Low sodium., 02/07/2014 Sexual Sexually involved in last 6 months: No., 01/09/2016 Substance Abuse Use: Current. Type: Cocaine, Heroin., 08/20/2021 Tobacco Use: 10 or more cigarettes (1/2 pack or more)/day in last 30 days., 02/04/2019 Former smoker, Other: 1/2 PPD since age 35 yo. Type: Cigarettes. Stopped at age: 40 Years., 01/23/2016 Family History Mother: Hypertension Father: Hyperlipidemia; Hypertension Brother: Alcoholism Brother: Alcoholism Pat. Grandfather: Diabetes mellitus type II; Throat cancer ? 27-MAR-2016 23 :30:24<$> Pat. Grandmother: Hypertension Other: Optic neuropathy Mat. Grandmother: Diabetes mellitus type II Other (multiple family members on mother's side): Sherie's optic atrophy Radiology CT Head W/O Contrast Reviewed.?? Small right parietal SDH.? Smaller right frontal SAH. Lab Results Labs Last 24 Hours No qualifying data available. * Richelle LEE, Bernadette H: PERFORM Event Display: History and Physical Hospital Authored Date: ?Attending Attestation: The patient was seen, examined, and discussed with the Trauma team on the date of service documented above.?The clinical course, labs, and radiological studies were reviewed by me and findings on exam confirmed.?I agree with the findings as well as the assessment and plan as delineated above. ?? Medical Decision Making: HIGH -chronic illness w/ SEVERE exac, progression, or AE of Tx, or illness or injury that poses a threat to life or bodily function; 2 of (note / test / order / indep historian = 3), interpretation /discussion; HIGH risk ?? --- Bernadette Peoples MD, [facility] Division of Trauma, Acute Care Surgery, and Surgical Critical Care ?? Hospital Progress note * Silas Wolf MD: PERFORM, SIGN Silas Wolf MD: SIGN, VERIFY Silas Wolf MD: VERIFY Dena Mae MD: SIGN, MODIFY Dena Mae MD: MODIFY Event Display: Progress Note Hospital Authored Date: Patient: BILL BASSETT Age: 47 years Sex: Male : 1975 Associated Diagnoses: None Author: Silas Wolf MD Subjective No acute events overnight. Says he had a good night and slept ok. Pain is controlled. No CP, SOB, Fevers, Chills. Eating and drinking without issue. Has been OOB with PT with walker. [facility] discontinued this AM. Objective Vitals: Temperature 98 (06:17) Systolic Blood Pressure 120 (06:17) Diastolic Blood Pressure 77 (06:17) Pulse 74 (06:17) SpO2 95 (06:17) Respiratory Rate 16 (06:17) Physical Exam: General: no acute distress Head: normocephalic, atraumatic, no hematomas, no deformities, right temporal/forehead abrasion Heart: regular rate and rhythm Lungs: regular rate, no respiratory distress Abdomen: soft, nontender, no wounds, no ecchymosis, no hematoma Extremities: bilateral knee abrasions, moving all extremities Vascular: extremities are warm and perfuse Results Review BLOOD COUNT & DIFF WBC 4.5 k/mm3 () 09/07/2022 03:28 RBC 3.96 m/mm3 (Low) 09/07/2022 03:28 Hgb 12.2 Gm/dL (Low) 09/07/2022 03:28 Hct 37.0 % (Low) 09/07/2022 03:28 MCV 93.4 femtoliters () 09/07/2022 03:28 MCH 30.8 pg () 09/07/2022 03:28 MCHC 33.0 g/dL () 09/07/2022 03:28 Platelet Count 110 k/mm3 (Low) 09/07/2022 03:28 RDW-SD 55.0 femtoliters (High) 09/07/2022 03:28 MPV 10.0 femtoliters () 09/07/2022 03:28 Nucleated RBC (Automated) 0.0 #/100 WBC'S () 09/07/2022 03:28 Abs. NRBC 0.0 k/mm3 () 09/07/2022 03:28 Abs. Neut 2.7 k/mm3 () 09/07/2022 03:28 Abs. Lymph 1.3 k/mm3 () 09/07/2022 03:28 Abs. Davison 0.4 k/mm3 () 09/07/2022 03:28 Abs. Eo 0.1 k/mm3 () 09/07/2022 03:28 Abs. Baso 0.1 k/mm3 () 09/07/2022 03:28 Neut % 59.9 % () 09/07/2022 03:28 Lymph % 28.1 % () 09/07/2022 03:28 Davison % 8.5 % () 09/07/2022 03:28 Eos % 2.0 % () 09/07/2022 03:28 Baso % 1.3 % () 09/07/2022 03:28 Imm Gran 0.2 % () 09/07/2022 03:28 Abs. Imm Gran 0.0 k/mm3 () 09/07/2022 03:28 CHEM GENERAL Sodium 145 mmol/L () 09/07/2022 03:29 Potassium 3.5 mmol/L (Low) 09/07/2022 03:29 Chloride 113 mmol/L (High) 09/07/2022 03:29 Bicarbonate Level 21 mmol/L (Low) 09/07/2022 03:29 Anion Gap 11 () 09/07/2022 03:29 Glucose Level 119 mg/dL (High) 09/07/2022 03:29 BUN 4 mg/dL (Low) 09/07/2022 03:29 Creatinine-Blood 0.7 mg/dL () 09/07/2022 03:29 Estimated GFR Creatinine 114 ML/MIN/1.73 M2 () 09/07/2022 03:29 Calcium 8.9 mg/dL () 09/07/2022 03:29 Protein, Total 6.7 Gm/dL () 09/07/2022 03:29 Albumin 3.8 Gm/dL () 09/07/2022 03:29 AG Ratio 1.3 () 09/07/2022 03:29 Alkaline Phosphatase 219 units/L (High) 09/07/2022 03:29 AST (SGOT) 75 units/L (High) 09/07/2022 03:29 ALT (SGPT) 35 units/L () 09/07/2022 03:29 Bilirubin, Total 1.3 mg/dL (High) 09/07/2022 03:29 COAG INR 1.1 () 09/07/2022 03:28 Protime (PT) 11.9 seconds (High) 09/07/2022 03:28 APTT 29.1 seconds () 09/07/2022 03:28 HEME OTHER Hold Lavender Top SPECIMEN DISCARDED AFTER 24 HOURS. () 09/07/2022 02:39 MISC. CHEMISTRY Hold Green Top SPECIMEN DISCARDED AFTER 1 WEEK () 09/07/2022 02:39 VIROLOGY COVID-19 by RT-PCR NEGATIVE () 09/07/2022 02:23 COVID-19 PCR Specimen Source NASAL () 09/07/2022 05:01 COVID-19 PCR Result NEGATIVE () 09/07/2022 05:01 Impression and Plan Bill Bassett is a 47-year-old man with a history of alcoholic cirrhosis with varices and hepatic encephalopathy requiring TIPS/multiple paracenteses, as well as multiple intracranial bleeds secondary to alcohol-induced falls, who presented to [facility] after a fall while intoxicated. Imaging revealed a small right parietal subdural and smaller right frontal subarachnoid. Injuries Small right parietal subdural hematoma Smaller right frontal subarachnoid hematoma [facility] Plan Neurosurgery c/s: No acute neurosurgical intervention Q4hr neuro checks HOB >30 SBP 100-140 May begin chemical DVT prophylaxis with SQ heparin 24 hours after fall STAT CT head for decline in GCS of 2 or > Neurosurgery signing off - will arrange 4-6 week outpatient follow up CIWA, vitamins, phenobarb taper Home meds Zofran prn nausea Bowel regimen PT/Case Management - plan [place] [phone] with any questions or concerns. Case to be discussed with attending surgeon, Dr. Mae. * Tu LEE, Dena: PERFORM Event Display: Progress Note Hospital Authored Date: Attending attestation: Patient seen, examined, and discussed with the surgical team. The course, labs and studies were reviewed and findings on exam confirmed. I agree with the findings and assessment and plan as delineated above. * Claudia Augustine RN: PERFORM, SIGN, VERIFY Event Display: Progress Note Hospital Authored Date: Patient: BILL BASSETT Age: 47 years Sex: Male : 1975 Associated Diagnoses: None Author: Claudia Augustine RN Findings Problem Related to Alteration in Neurological : Alteration in Neurological Function/new 09/08/2022 4:00 EDT Alteration in Neuro status Related to Other: Subdural hematoma Goals & Outcomes, Neurological Pt is safe with transfers & activities, Pt will be Neurologically stable, Pt will become pain free with appropriate intervention, Pt/caregiver will state understanding of plan/goals of care Interventions, Neurological Assess/monitor neurologic status, Assess/monitor VS per unit standards & prn, Call/Report variances in assessments to provider, Collaborate w/ provider to implement appropriate guidelines, Maintain HOB at least 30 deg, Monitor for headaches, nausea, vomiting, Teach & encourage deep breath & cough exercises, Teach and encourage use of Incentive spirometer, Minimize neuro stimulation BH Goals/Interventions, Neurological Yes Neurological, Problem Start 09/07/2022 20:00 Reviewed plan with, Neurological Patient Patient Progression, Neurological Pt progressing according to plan . Narrative/Incidental Pt is ANOx4, pleasant, able to follow commands and answer questions appropriately. All CIWA scores were equal to or less than 1 during shift. Equal strength and sensation present bilaterally. Pt. denies any chest pain, has palpable pulses, no edema and remains in sinus tach/NSR from 90???s to 110???s on the monitor during shift. Pt has clear lung sounds bilaterally and remains on room air with nodesats during shift. Pt has +BS, abdomen is soft, flat, and nontender. Pt denies N/V/abdominal pain. No BM during shift. Pt is voiding adequate amounts of clear yellow and odorless urine via externalcatheter during shift without any pain or difficulty. Skin is clean, dry and intact. There is some generalized bruising throughout his body due to his fall. Pt c/o 5/10 pain, managed by scheduled gabapentin. Safety measures implemented, pt is able to make needs known and call rivera remains in reach.. Discharge Information Rehabilitation Discharge : Rehab Discharge Index 09/07/2022 9:20 EDT Comments on treatment indicated 47 M s/p fall with (+) SSAH/SDH. INDEP with RW or w/c in 1L home with no GONZALES. Pt is blind. Pt (S) with RW on eval. See for strength, balance, endurance, safety, mobility. Home with family support and home PT Walker: distance 20-50 Distance pt will ambulate 100ft or greater Full chart review completed Yes Plan of care PT Gait training, Transfer training, Therapeutic exercise, Functional Activities, Balance training * Migdalia Man: SIGN, MODIFY, MODIFY, PERFORM, SIGN, VERIFY, SIGN Event Display: Progress Note Hospital Authored Date: Patient: BILL BASSETT Age: 47 years Sex: Male : 1975 Associated Diagnoses: None Author: Migdalia Man Findings Narrative/Incidental Arrived from ED at approx 0900. Pt A&Ox3,Legally blind. Neuro reamains intact throughout shift.PERRLA. Bilaterally sluggish to react but reactive. NSR to Sinus tach on monitor 80-low 100s. traceedema to lower extremities. VSS. Arrived on nicardipine gtt but titrated off at approx 0930 and SBPs have remained 100- 130s. Lungs CTA on room air. +BSx4, abd soft nontender. Tolerating regular diet. Had two liquid BM today. Voids CYU, incontinant so Te/C in place. Standby assist with a walker today into hallway. Blanchable erythema to buttocks and abrasions throughout body. CIWA completed per orders. Complaints of pain that is chronic to right leg, old scars he states from surgery to leg. Respositioned for relief. Rounding completed to assess needs. Bed alarm on for safety. See biophysical for full assessment. Discharge Information Rehabilitation Discharge : Rehab Discharge Index 09/07/2022 9:20 EDT Comments on treatment indicated 47 M s/p fall with (+) SSAH/SDH. INDEP with RW or w/c in 1L home with no GONZALES. Pt is blind. Pt (S) with RW on eval. See for strength, balance, endurance, safety, mobility. Home with family support and home PT Walker: distance 20-50 Distance pt will ambulate 100ft or greater Full chart review completed Yes Plan of care PT Gait training, Transfer training, Therapeutic exercise, Functional Activities, Balance training Note * Migdalia Man: PERFORM Event Display: Discharge/Transfer Note Hospital Authored Date: Nursing Discharge Note Entered On: 09/08/2022 17:02 EDT Performed On: 09/08/2022 17:02 EDT by Migdalia Man Nursing Discharge Note 2 Discharge Time : 09/08/2022 17:02 EDT Discharge Level of Care at Discharge : Homehealth/VNA Discharge VNA/Hospice/Home Care([id number]) : [facility] [phone] Patient Left Unit Via : Wheelchair Patient Accompanied Off Unit with : Ambulance/Chair Van Personnel Handover Given to Transport Personnel : Yes DC Instructions Provided & Signed by Pt : Yes Patient Understands D/C Instructions : Yes Patient Instructions Discharge Signed : Yes Did Pt have Specialty Bed or Wound Vac : No MerlinMigdalia cifuentes - 09/08/2022 17:02 EDT * January Peters NP: MODIFY January Peters NP: MODIFY, SIGN LorraineJanuary baird NP: SIGN, VERIFY LorraineJanuary baird NP: VERIFY, PERFORM January Peters NP: PERFORM, MODIFY Event Display: Discharge/Transfer Note Hospital Authored Date: [id number] Patient: BILL BASSETT Age: 47 years Sex: Male : 1975 Associated Diagnoses: None Author: January Peters NP Discharge Information Admission Date: 09/07/2022 Discharge Date 09/08/2022 Primary Care Provider: Jany Baig DO Principal Discharge Diagnosis Fall. Secondary Discharge Diagnoses Subdural hematoma. SAH (subarachnoid hemorrhage). Medications Aware of diagnosis: patient, family. Attending Consultants Dell LEE, Norbert. Discharge condition: good Compared to admission: improved Code status: Full Hospital Course This is a 47-year-old man with a history of alcoholic cirrhosis with varices and hepatic encephalopathy requiring TIPS/multiple paracenteses, as well as multiple intracranial bleeds secondary to alcohol-induced falls, who presented to [facility] after a fall while intoxicated. Imaging revealed a small right parietal subdural and smaller right frontal subarachnoid. Patient was seen by Neurosurg who recommended q 4 hour checks and follow up in 4-6 weeks. Patient was seen by SW, PT, OT. Patient cleared for home with services CM made aware and set this way. On the day of discharge pain is well controlled on current regimen. Patient is afebrile with no leukocytosis. Patient is tolerating diet. Voiding and having bowel movements. Patient is appropriate for discharge to home with services. follow-up with trauma on as needed. Postoperative Events Unexpected Return to the OR: no. Bleeding required re-operation: no. Significant Results Results: Vital signs : VITAL SIGNS SECTION 09/08/2022 10:00 EDT Temperature 98.1 DegF Temperature Route Oral Pulse Rate 93 bpm H Respiratory Rate 18 br/min Systolic Blood Pressure 131 mm Hg Diastolic Blood Pressure 63 mm Hg Blood pressure sites Arm, left Pulse Pressure 68 mm Hg Oxygen Saturation 99 % Mode of Delivery (Oxygen) Room air , Laboratory : LABORATORY 09/08/2022 6:18 EDT WBC 4.2 k/mm3 RBC 3.36 m/mm3 L Hgb 10.7 Gm/dL L Hct 31.7 % L MCV 94.3 femtoliters H MCH 31.8 pg MCHC 33.8 g/dL Platelet Count 99 k/mm3 L RDW-SD 54.8 femtoliters H MPV 9.9 femtoliters Nucleated RBC (Automated) 0.0 #/100 WBC'S Abs. NRBC 0.0 k/mm3 Abs. Neut 1.9 k/mm3 Abs. Lymph 1.5 k/mm3 Abs. Davison 0.5 k/mm3 Abs. Eo 0.2 k/mm3 Abs. Baso 0.0 k/mm3 Neut % 45.4 % Lymph % 36.4 % Davison % 12.4 % H Eos % 4.8 % Baso % 1.0 % Imm Gran 0.0 % Abs. Imm Gran 0.0 k/mm3 , Imaging : RADIOLOGY 09/07/2022 7:[address] Head/Brain W/O Contrast CT Head/Brain W/O Contrast 09/07/2022 3:08 EDT Chest Portable Chest Portable . Discharge Plan Discharge Disposition Discharge: home with VNA. Home Health Face to Face I certify that this patient is under my care and that I or an allowed non- physician practitioner working with me, had a [id number] encounter with the patient on this date: 09/08/2022. The encounter with the patient was in whole, or in part, for the following medical condition, whichis the primary reason for home health care: Fall. Physical Therapy: Functional mobility training, Home exercise program to strengthen, increase ROM, Falls prevention training. Occupational Therapy: ADL Management, Fall prevention training. Physician Signature: Dena Mae MD . * Dena Mae MD: PERFORM Event Display: Discharge/Transfer Note Hospital Authored Date: [id number] Attending attestation: Patient seen, examined, and discussed with the surgical team. The course, labs and studies were reviewed and findings on exam confirmed. I agree with the findings and assessment and plan as delineated above. * Shira Dickerson: VERIFY, PERFORM, SIGN Event Display: Case Management Discharge Plan Authored Date: [id number] Patient: BILL BASSETT Age: 47 years Sex: Male : 1975 Associated Diagnoses: None Author: Shira Dickerson Discharge Plan Case Management Discharge Plan : Case Management Discharge Plan Data 09/08/2022 11:41 EDT Discharge Level of Care at Discharge Homehealth/VNA Discharge VNA/Hospice/Home Care [facility] [phone] Discharge Transportation Arranged [facility] [address] [place] [address] Discharge Arranged Transport Date/Time 09/08/2022 14:00 Mode of Transportation Arranged Chair [facility] Agency [employer] #1 intake Service Categories #1 Physical Therapy, Custodial Service Comments #1 you will be going home with services [facility]. for sn and pt services. they will call you within 24/48 hours. if you do not here from them please call them [phone] * Migdalia Man: PERFORM Event Display: Patient Education/Instruction Authored Date: [id number] Inpatient Adult Discharge Instructions [address] [address] Name: BILL BASSETT : 1975 Visit: 09/07/2022 04:17:00 Current Date: 09/08/2022 14:52 Account: [id number] Inpatient Adult Discharge Instructions We would like [...] and their families. Surveys are administered by [employer] ?? If further treatment with your primary care physician or another doctor is recommended, it is important for you to keep the appointment. Call your primary care physician or return to the Emergency Department immediately if your condition worsens, fails to improve, or new symptoms develop. If you need to find a doctor, you can call [facility] for a referral at [phone] or toll free at [phone] or log in to [email or web address] ?? You can view and manage your care through the patient portal or by using a health care sydnie of your choosing. [employer] is a website that allows you to securely view your medical information including your hospital discharge summary, office visit summaries, medications and follow-up visits. You can also request appointments, renew medications, and request access to your medical information using a health care sydnie of your choosing, or just ask a question. You can enroll at [email or web address] or register during your next office visit. You have been discharged from [facility], Patient Care Unit: SW5. If you have any questions regarding these instructions after you leave, please call us and we will be happy to assist you. [facility] Your Care Team Attending Physician Bernadette Peoples MD Discharging Providers January Peters NP Reason for Admission Altered mental status, General medical Your Diagnosis Subdural hematoma Fall SAH (subarachnoid hemorrhage) Tests Performed Below is a partial list of the tests performed during your hospitalization. You may have had other tests and procedures not included in this list. Please discuss all test results with your provider. BUN Calcium Ionized CBC w/ Differential Comprehensive Metabolic Panel COVID-19 (2019 Novel Coronavirus) PCR COVID-19 (Novel Coronavirus), Rapid PCR Creatinine Glucose Level HOLD GREEN TUBE HOLD LAVENDER TUBE INR Lytes Magnesium Level Phosphorus Level PTT CT Head/Brain W/O Contrast XR Chest Portable Primary Care Provider Jany Baig DO Advance Directive Health Care Proxy on File Yes - Health Care Proxy Discharge Vitals Temperature: 98.1 DegF Height: 176 cm Pulse Rate: 88 bpm Weight: 82.1 kg Respiratory Rate: 18 br/min Body Mass Index:??26.47 kg/m2??High Systolic Blood Pressure: 133 mm Hg Body surface area: 2 Diastolic Blood Pressure: 63 mm Hg ?? Oxygen Saturation: 99 % ?? Studies Pending All tests and labs ordered during this hospital stay have been completed unless listed below. Please discuss all pending results with your provider listed above in these instructions. ?? BUN CBC w/ Differential Creatinine Electrolytes (Lytes) Glucose Level Ionized Calcium (Calcium Ionized) Magnesium Level Phosphorus Level What to do next Instructions From Your Doctor Trauma Special Instructions? If you develop fever, chills, increased pain, nausea, vomiting, bleeding please call the trauma surgery office at . Please take medications as prescribed and do not drive while on narcotic medications.? If you have any questions, please call the trauma surgery office at . ?? Please call your Primary Care Provider within 1 week for post hospital follow up and review of yourmedications. ?? Discharge Orders Scheduled Follow-Up Appointments Wednesday 10:00 AM EDT ?? With: Where: [facility] [address] [place] [address] Drive [address] [place], [place] - Wednesday 10:40 AM EDT ?? With: Jany Baig DO Where: [facility] [address] [place], [place] - 2022 11:40 AM EDT ?? With: Jany Baig DO Where: [facility] [address] [place], [place] - Wednesday 9:00 AM EDT ?? With: Where: [facility] You Need to Schedule the Following Appointments Follow Up with??[facility] When??Only if needed Where: [address] [place] [phone]- Discharge Medications BILL BASSETT :1975 Visit Date:09/07/2022 Medications: Please continue your medications until treatment is completed or stopped by your provider. Medications not listed below should be discontinued. Discuss any questions related to medications with your provider. What How Much When Why Instructions Next Dose New Phenobarbital (PHENobarbital 30 mg oral tablet) See instructions Taper Day 1 -90mg or 3 30mg tabs Daily Day 2-3-60mg or 2 30mg tabs BID Day 4-5 30mg or ??1 30mg tab Daily ?? Pickup at [facility] 3 Tomorrow morning 90 mg Changed Furosemide (furosemide 20 mg oral tablet) 1 tab(s) Oral Daily R1. ?? Tomorrow Morning Unchanged Acamprosate (acamprosate 333 mg oral delayed release tablet) 1 tab(s) Oral 3 times a day Tonight Unchanged Amlodipine (amLODIPine 5 mg oral tablet) See instructions TAKE 1 TABLET BY MOUTH ONCE A DAY^1R1 ?? Tomorrow morning Unchanged Baclofen (baclofen 10 mg oral tablet) See instructions TAKE 1 TABLET BY MOUTH THREE TIMES DAILY ?? Tonight Unchanged Durable Medical Equipment (Compression Stockings) See instructions Leg swelling Leg pain surgical, calf length 20-30 mm Hg M79.89 M79.606 ?? Unchanged Durable Medical Equipment (R aircast ankle-stirrup support brace) See instructions Ankle sprain Dx: R inversion ankle sprain s93.409a ?? Unchanged Fluticasone Nasal (fluticasone 50 mcg/ inh nasal spray) See instructions USE 1 SPRAY(S) INTO EACH NOSTRIL TWICE A DAY ?? Unchanged Folic Acid (folic acid 1 mg oral tablet) 1 tab(s) Oral Daily Duration: 90 Days Tomorrow morning Unchanged Gabapentin (gabapentin 300 mg oral capsule) 1 capsule Oral Twice a day Duration: 90 Days note dose/ frequency change ?? Tonight Unchanged HydrOXYzine (hydrOXYzine hydrochloride 25 mg oral tablet) 1 TO 2 TABLETS Oral Daily at Bedtime as needed for NEEDED FOR ANXIETY (VIAL) Tonight at bedtime Unchanged Lactulose (lactulose 10 gm/ 15 ml oral syrup) See instructions TAKE 30ML BY MOUTH THREE TIMES DAILY NEEDED TO ACHEIVE 3-4 BOWL MOVEMENTS PER DAY ?? Tonight Unchanged Lidocaine Topical (Lidoderm 5% film) 1 patch Topically Daily Neuropathy Rib fracture remove patches after 12 hours NSAIDS contraindicated High dose tylenol contraindicated remove patches after 12 hours Nueropathy ?? Tomorrow morning Unchanged Magnesium Oxide (magnesium oxide 400 mg oral tablet) 1 tab(s) Oral Twice a day Tonight Unchanged Melatonin (Melatonin 3 mg oral tablet) 1 tab(s) Oral Daily at Bedtime as needed for NEEDED FOR INSOMNIA (PACKAGE IN TRAY)^1R4 Tonight at bedtime if needed for sleep Unchanged Miscellaneous Rx (Eucerin Original Healing Cream) See instructions apply 2 x a day for dry skin dx: eczema ??L30.9 ?? Unchanged Multivitamin (Tab-A-Jesse oral tablet) 1 tab(s) Oral Daily Tomorrow morning Unchanged Pantoprazole (pantoprazole 40 mg oral delayed release tablet) 1 tab(s) Oral Daily Duration: 90 Days ^1R1. ?? Tomorrow morning Unchanged Paroxetine (PARoxetine 10 mg oral tablet) 1 tab(s) Oral Daily Duration: 90 Days Tomorrow morning Unchanged Pyridoxine (pyridoxine 50 mg oral tablet) 1 tab(s) Oral Daily Duration: 90 Days Tomorrow morning Unchanged Rifaximin (Xifaxan 550 mg oral tablet) 1 tab(s) Oral Twice a day ^1R1,1R4. ?? Tomorrow morning Unchanged Thiamine (Vitamin B1 100 mg oral tablet) 1 tab(s) Oral Daily Tomorrow morning Unchanged Trazodone (traZODone 50 mg oral tablet) 2 tablets Oral Daily at Bedtime Tonight at bedtime Unchanged Ubiquinone (Co Q-10 100 mg oral capsule) See instructions TAKE 1 CAPSULE BY MOUTH FOUR TIMES DAILY ?? [facility]: [address], [place] [id number] [phone] ?? What How Much When Comments Stop Taking Acetaminophen (acetaminophen 500 mg oral tablet) 1 tab(s) Oral 4 times a day as needed for NEEDED FOR PAIN, MAX 4 PER DAY (VIAL. ?? Test Results Below is a partial list of the most recent Laboratory test results done prior to this discharge. You may have had other tests and procedures not included in this list. Please discuss all test resultswith your provider. BUN (09/08/2022) ???BUN - 10 mg/dL Calcium Ionized (09/08/2022) ???Calcium, Ionized pH Corrected - 1.20 mmol/L CBC w/ Differential (09/08/2022) ???WBC - 4.2 k/mm3???RBC - 3.36 m/mm3???Hgb - 10.7 Gm/dL???Hct - 31.7 %???MCV - 94.3 femtoliters???MCH - 31.8 pg???MCHC - 33.8 g/dL???Platelet Count - 99 k/mm3???RDW-SD - 54.8 femtoliters???MPV - 9.9femtoliters???Nucleated RBC (Automated) - 0.0 #/100 WBC'S???Abs. NRBC - 0.0 k/mm3???Abs. Neut - 1.9 k/mm3???Abs. Lymph - 1.5 k/mm3???Abs. Davison - 0.5 k/mm3???Abs. Eo - 0.2 k/mm3???Abs. Baso - 0.0 k/mm3???Neut % - 45.4 %???Lymph % - 36.4 %???Davison % - 12.4 %???Eos % - 4.8 %???Baso % - 1.0 %???Imm Gran- 0.0 %???Abs. Imm Gran - 0.0 k/mm3 Comprehensive Metabolic Panel (09/07/2022) ???Sodium - 145 mmol/L???Potassium - 3.5 mmol/L???Chloride - 113 mmol/L???Bicarbonate Level - 21 mmol/L???Anion Gap - 11???Glucose Level - 119 mg/dL???BUN - 4 mg/dL???Creatinine-Blood - 0.7 mg/dL???Estimated GFR Creatinine - 114 ML/MIN/1.73 M2???Calcium - 8.9 mg/dL???Protein, Total - 6.7 Gm/dL???Alb umin - 3.8 Gm/dL???AG Ratio - 1.3???Alkaline Phosphatase - 219 units/L???AST (SGOT) - 75 units/L???ALT (SGPT) - 35 units/L???Bilirubin, Total - 1.3 mg/dL COVID-19 (2019 Novel Coronavirus) PCR (09/07/2022) ???COVID-19 PCR Specimen Source - NASAL???COVID-19 PCR Result - NEGATIVE COVID-19 (Novel Coronavirus), Rapid PCR (09/07/2022) ???COVID-19 by RT-PCR - NEGATIVE Creatinine (09/08/2022) ???Creatinine-Blood - 0.6 mg/dL???Estimated GFR Creatinine - 117 ML/MIN/1.73 M2 Glucose Level (09/08/2022) ???Glucose Level - 82 mg/dL HOLD GREEN TUBE (09/07/2022) ???Hold Green Top - SPECIMEN DISCARDED AFTER 1 WEEK HOLD LAVENDER TUBE (09/07/2022) ???Hold Lavender Top - SPECIMEN DISCARDED AFTER 24 HOURS. INR (09/07/2022) ???INR - 1.1???Protime (PT) - 11.9 seconds Lytes (09/08/2022) ???Sodium - 139 mmol/L???Potassium - 3.6 mmol/L???Chloride - 109 mmol/L???Bicarbonate Level - 21 mmol/L???Anion Gap - 9 Magnesium Level (09/08/2022) ???Magnesium - 2.1 mg/dL Phosphorus Level (09/08/2022) ???Phosphorus - 3.1 mg/dL PTT (09/07/2022) ???APTT - 29.1 seconds Allergies (NKA means No Known Allergies) NSAIDs [...] sleep apnea)?? Overweight?? Patellar contusion, seen by [facility] spring 2015?? Vitamin D insufficiency?? Education Materials Below is the list of Educational Leaflet Providered with your Discharge Instructions. Alcohol Abuse?? Valuables and Belongings I fully understand and agree that [facility] accepts no responsibility for all my [...] patient Date for Pt to Sign Valuables/Belongings: 09/08/22 14:29:00 ?? Other Discharge Information ? Case Management Discharge Plan?? Discharge Plan?? Discharge Agency Information?? Discharge Level of Care at Discharge: Homehealth/VNA Agency [employer]ered Financial Analyst #1: intake Discharge Transportation Arranged: [facility] [address] [place] [address] ??[phone] Service Categories #1: Physical Therapy, Custodial Mode of Transportation Arranged: Chair Van Service Comments #1: you will be going home with [facility] they will call you within 24/48 hours. if you do not here from them please call them [phone] Discharge Arranged Transport Date/Time: 09/08/22 14:00:00 ?? Discharge VNA/Hospice/Home Care: [facility] [phone] ? Pulmonary Rehab Status?? Pulmonary Rehab Discharge [...] are strongly encouraged to quit. Please call [facility] Project Travel Link at [phone] or [phone] ([phone]) or log in to [email or web address] for referrals to smoking cessation programs. ?? The National Suicide Prevention Hotline is available 04/01 if you or someone you know needs to find a reason to keep living. By calling 7-208-171-[employer] (6240) you'll be connected to a skilled, trained counselor at a crisis center in your area. INPATIENT DISCHARGE INSTRUCTIONS SIGNATURE PAGE BILL BASSTET Location:[facility] Registration Date and Time:09/07/2022 04:17 EDT Primary Care Physician: Jany Baig DO, I BILL BASSETT, have received the above patient education materials/instructions and have verbalized understanding. If ambulance or transport services are being used I further acknowledge being given a choice of service. ?? If you need to contact me, please call me at this number: . Patient/Instrumentation And Controls Designer Name: Patient/Instrumentation And Controls Designer Signature: Relationship to Patient: Witness Name/Signature: Date: * Migdalia Man: PERFORM Event Display: Patient Education/Instruction Authored Date: [id number] Inpatient Adult Discharge Instructions [address] [address] Name: BILL CAWU : 1975 Visit: 09/07/2022 04:17:00 Current Date: 09/08/2022 14:25 Account: [id number] Inpatient Adult Discharge Instructions We would like [...] and their families. Surveys are administered by [employer] ?? If further treatment with your primary care physician or another doctor is recommended, it is important for you to keep the appointment. Call your primary care physician or return to the Emergency Department immediately if your condition worsens, fails to improve, or new symptoms develop. If you need to find a doctor, you can call [facility] for a referral at [phone] or toll free at [phone] ([phone]) or log in to [email or web address].. ?? You can view and manage your care through the patient portal or by using a health care sydnie of your choosing. [employer] is a website that allows you to securely view your medical information including your hospital discharge summary, office visit summaries, medications and follow-up visits. You can also request appointments, renew medications, and request access to your medical information using a health care sydnie of your choosing, or just ask a question. You can enroll at [email or web address] or register during your next office visit. You have been discharged from [facility], Patient Care Unit: SW5. If you have any questions regarding these instructions after you leave, please call us and we will be happy to assist you. [facility] Your Care Team Attending Physician Richelle LEE, Bernadette Maradiaga Discharging Providers Lorraine WILSON, January Colindres Reason for Admission Altered mental status, General medical Your Diagnosis Subdural hematoma Fall SAH (subarachnoid hemorrhage) Tests Performed Below is a partial list of the tests performed during your hospitalization. You may have had other tests and procedures not included in this list. Please discuss all test results with your provider. BUN Calcium Ionized CBC w/ Differential Comprehensive Metabolic Panel COVID-19 (2019 Novel Coronavirus) PCR COVID-19 (Novel Coronavirus), Rapid PCR Creatinine Glucose Level HOLD GREEN TUBE HOLD LAVENDER TUBE INR Lytes Magnesium Level Phosphorus Level PTT CT Head/Brain W/O Contrast XR Chest Portable Primary Care Provider Jany Baig DO Advance Directive Health Care Proxy on File Yes - Health Care Proxy Discharge Vitals Temperature: 98.1 DegF Height: 176 cm Pulse Rate: 88 bpm Weight: 82.1 kg Respiratory Rate: 18 br/min Body Mass Index:??26.47 kg/m2??High Systolic Blood Pressure: 133 mm Hg Body surface area: 2 Diastolic Blood Pressure: 63 mm Hg ?? Oxygen Saturation: 99 % ?? Studies Pending All tests and labs ordered during this hospital stay have been completed unless listed below. Please discuss all pending results with your provider listed above in these instructions. ?? BUN CBC w/ Differential Creatinine Electrolytes (Lytes) Glucose Level Ionized Calcium (Calcium Ionized) Magnesium Level Phosphorus Level What to do next Instructions From Your Doctor Trauma Special Instructions? If you develop fever, chills, increased pain, nausea, vomiting, bleeding please call the trauma surgery office at . Please take medications as prescribed and do not drive while on narcotic medications.? If you have any questions, please call the trauma surgery office at . ?? Please call your Primary Care Provider within 1 week for post hospital follow up and review of yourmedications. ?? Discharge Orders Scheduled Follow-Up Appointments Wednesday 10:00 AM EDT ?? With: Where: [facility] [address] [place] [address]- Wednesday 10:40 AM EDT ?? With: Jany Baig DO Where: [facility] [address] [place] [address]- 2022 11:40 AM EDT ?? With: Jany Baig DO Where: [facility] [address] [place] [address]- Wednesday 9:00 AM EDT ?? With: Where: [facility] You Need to Schedule the Following Appointments Follow Up with??[facility] When??Only if needed Where: [address] [place] [id number]- Discharge Medications BILL BASSETT :1975 Visit Date:09/07/2022 Medications: Please continue your medications until treatment is completed or stopped by your provider. Medications not listed below should be discontinued. Discuss any questions related to medications with your provider. What How Much When Why Instructions Next Dose Changed Furosemide (furosemide 20 mg oral tablet) 1 tab(s) Oral Daily R1. ?? Tomorrow morning Unchanged Acamprosate (acamprosate 333 mg oral delayed release tablet) 1 tab(s) Oral 3 times a day Tonight Unchanged Amlodipine (amLODIPine 5 mg oral tablet) See instructions TAKE 1 TABLET BY MOUTH ONCE A DAY^1R1 ?? Tomorrow morning Unchanged Baclofen (baclofen 10 mg oral tablet) See instructions TAKE 1 TABLET BY MOUTH THREE TIMES DAILY ?? Tonight Unchanged Durable Medical Equipment (Compression Stockings) See instructions Leg swelling Leg pain surgical, calf length 20-30 mm Hg M79.89 M79.606 ?? Unchanged Durable Medical Equipment (R aircast ankle-stirrup support brace) See instructions Ankle sprain Dx: R inversion ankle sprain s93.409a ?? Unchanged Fluticasone Nasal (fluticasone 50 mcg/ inh nasal spray) See instructions USE 1 SPRAY(S) INTO EACH NOSTRIL TWICE A DAY ?? Tonight Unchanged Folic Acid (folic acid 1 mg oral tablet) 1 tab(s) Oral Daily Duration: 90 Days Tomorrow Morning Unchanged Gabapentin (gabapentin 300 mg oral capsule) 1 capsule Oral Twice a day Duration: 90 Days note dose/ frequency change ?? Tonight Unchanged HydrOXYzine (hydrOXYzine hydrochloride 25 mg oral tablet) 1 TO 2 TABLETS Oral Daily at Bedtime as needed for NEEDED FOR ANXIETY (VIAL) Tonight at bedtime Unchanged Lactulose (lactulose 10 gm/ 15 ml oral syrup) See instructions TAKE 30ML BY MOUTH THREE TIMES DAILY NEEDED TO ACHEIVE 3-4 BOWL MOVEMENTS PER DAY ?? Tonight Unchanged Lidocaine Topical (Lidoderm 5% film) 1 patch Topically Daily Neuropathy Rib fracture remove patches after 12 hours NSAIDS contraindicated High dose tylenol contraindicated remove patches after 12 hours Nueropathy ?? Tomorrow morning Unchanged Magnesium Oxide (magnesium oxide 400 mg oral tablet) 1 tab(s) Oral Twice a day Tongiht Unchanged Melatonin (Melatonin 3 mg oral tablet) 1 tab(s) Oral Daily at Bedtime as needed for NEEDED FOR INSOMNIA (PACKAGE IN TRAY)^1R4 Unchanged Miscellaneous Rx (Eucerin Original Healing Cream) See instructions apply 2 x a day for dry skin dx: eczema ??L30.9 ?? Unchanged Multivitamin (Tab-A-Jesse oral tablet) 1 tab(s) Oral Daily Tomorrow Morning Unchanged Pantoprazole (pantoprazole 40 mg oral delayed release tablet) 1 tab(s) Oral Daily Duration: 90 Days ^1R1. ?? Tomorrow Morning Unchanged Paroxetine (PARoxetine 10 mg oral tablet) 1 tab(s) Oral Daily Duration: 90 Days Tomorrow Morning Unchanged Pyridoxine (pyridoxine 50 mg oral tablet) 1 tab(s) Oral Daily Duration: 90 Days Tomorrow Morning Unchanged Rifaximin (Xifaxan 550 mg oral tablet) 1 tab(s) Oral Twice a day ^1R1,1R4. ?? Tonight Unchanged Thiamine (Vitamin B1 100 mg oral tablet) 1 tab(s) Oral Daily Tomorrow Morning Unchanged Trazodone (traZODone 50 mg oral tablet) 2 tablets Oral Daily at Bedtime Tonight at bedtime Unchanged Ubiquinone (Co Q-10 100 mg oral capsule) See instructions TAKE 1 CAPSULE BY MOUTH FOUR TIMES DAILY ? What How Much When Comments Stop Taking Acetaminophen (acetaminophen 500 mg oral tablet) 1 tab(s) Oral 4 times a day as needed for NEEDED FOR PAIN, MAX 4 PER DAY (VIAL. ?? Test Results Below is a partial list of the most recent Laboratory test results done prior to this discharge. You may have had other tests and procedures not included in this list. Please discuss all test resultswith your provider. BUN (09/08/2022) ???BUN - 10 mg/dL Calcium Ionized (09/08/2022) ???Calcium, Ionized pH Corrected - 1.20 mmol/L CBC w/ Differential (09/08/2022) ???WBC - 4.2 k/mm3???RBC - 3.36 m/mm3???Hgb - 10.7 Gm/dL???Hct - 31.7 %???MCV - 94.3 femtoliters???MCH - 31.8 pg???MCHC - 33.8 g/dL???Platelet Count - 99 k/mm3???RDW-SD - 54.8 femtoliters???MPV - 9.9femtoliters???Nucleated RBC (Automated) - 0.0 #/100 WBC'S???Abs. NRBC - 0.0 k/mm3???Abs. Neut - 1.9 k/mm3???Abs. Lymph - 1.5 k/mm3???Abs. Davison - 0.5 k/mm3???Abs. Eo - 0.2 k/mm3???Abs. Baso - 0.0 k/mm3???Neut % - 45.4 %???Lymph % - 36.4 %???Davison % - 12.4 %???Eos % - 4.8 %???Baso % - 1.0 %???Imm Gran- 0.0 %???Abs. Imm Gran - 0.0 k/mm3 Comprehensive Metabolic Panel (09/07/2022) ???Sodium - 145 mmol/L???Potassium - 3.5 mmol/L???Chloride - 113 mmol/L???Bicarbonate Level - 21 mmol/L???Anion Gap - 11???Glucose Level - 119 mg/dL???BUN - 4 mg/dL???Creatinine-Blood - 0.7 mg/dL???Estimated GFR Creatinine - 114 ML/MIN/1.73 M2???Calcium - 8.9 mg/dL???Protein, Total - 6.7 Gm/dL???Alb umin - 3.8 Gm/dL???AG Ratio - 1.3???Alkaline Phosphatase - 219 units/L???AST (SGOT) - 75 units/L???ALT (SGPT) - 35 units/L???Bilirubin, Total - 1.3 mg/dL COVID-19 (2019 Novel Coronavirus) PCR (09/07/2022) ???COVID-19 PCR Specimen Source - NASAL???COVID-19 PCR Result - NEGATIVE COVID-19 (Novel Coronavirus), Rapid PCR (09/07/2022) ???COVID-19 by RT-PCR - NEGATIVE Creatinine (09/08/2022) ???Creatinine-Blood - 0.6 mg/dL???Estimated GFR Creatinine - 117 ML/MIN/1.73 M2 Glucose Level (09/08/2022) ???Glucose Level - 82 mg/dL HOLD GREEN TUBE (09/07/2022) ???Hold Green Top - SPECIMEN DISCARDED AFTER 1 WEEK HOLD LAVENDER TUBE (09/07/2022) ???Hold Lavender Top - SPECIMEN DISCARDED AFTER 24 HOURS. INR (09/07/2022) ???INR - 1.1???Protime (PT) - 11.9 seconds Lytes (09/08/2022) ???Sodium - 139 mmol/L???Potassium - 3.6 mmol/L???Chloride - 109 mmol/L???Bicarbonate Level - 21 mmol/L???Anion Gap - 9 Magnesium Level (09/08/2022) ???Magnesium - 2.1 mg/dL Phosphorus Level (09/08/2022) ???Phosphorus - 3.1 mg/dL PTT (09/07/2022) ???APTT - 29.1 seconds Allergies (NKA means No Known Allergies) NSAIDs [...] Belongings I fully understand and agree that [facility] accepts no responsibility for all my [...] patient Date for Pt to Sign Valuables/Belongings: 09/07/22 08:59:00 ?? Other Discharge Information ? Case Management Discharge Plan?? Discharge Plan?? Discharge Agency Information?? Discharge Level of Care at Discharge: Homehealth/VNA Agency Chartered Financial Analyst #1: intake Discharge Transportation Arranged: [facility] [phone] [facility] [address] [facility] [facility] ??[phone] Service Categories #1: Physical Therapy, Custodial Mode of Transportation Arranged: Chair Van Service Comments #1: [facility]. they will call you within 24/48 hours. if you do not here from them please call them [phone] Discharge Arranged Transport Date/Time: 09/08/22 14:00:00 ?? Discharge VNA/Hospice/Home Care: [facility] [phone] ? Pulmonary Rehab Status?? Pulmonary Rehab Discharge [...] are strongly encouraged to quit. Please call [facility] Project Travel Link at [phone] or [phone] ([phone]) or log in to [email or web address] for referrals to smoking cessation programs. ?? The National Suicide Prevention Hotline is available 04/01 if you or someone you know needs to find a reason to keep living. By calling 6-399-065-[employer] (3269) you'll be connected to a skilled, trained counselor at a crisis center in your area. INPATIENT DISCHARGE INSTRUCTIONS SIGNATURE PAGE BILL BASSETT Location:[facility] Registration Date and Time:09/07/2022 04:17 EDT Primary Care Physician: Jany Baig DO, I BILL BASSETT, have received the above patient education materials/instructions and have verbalized understanding. If ambulance or transport services are being used I further acknowledge being given a choice of service. ?? If you need to contact me, please call me at this number: . Patient/Instrumentation And Controls Designer Name: Patient/Instrumentation And Controls Designer Signature: Relationship to Patient: Witness Name/Signature: Date: * Migdalia Man: PERFORM Event Display: Patient Education Leaflets Authored Date: [id number] Alcohol Abuse ?? [id number] Alcohol Abuse Alcoholic drinks harm you when you have too many of them. No set number of drinks means too much. Drinking that affects your life or your health is called alcohol abuse. Alcohol abuse can hurt your relationships with others. You may lose friends, a spouse, or even your job. You may be abusing alcohol if any of the following are true for you: ??? Duties at home or with early childhood assistant suffer because of drinking. ??? Duties at work or in school suffer because of drinking. ??? You have missed work or school because of drinking. ??? You use alcohol while driving or using machinery. ??? You have legal problems such as arrests because of drinking. ??? You keep drinking even though it causes serious problems in your life. Health problems Alcohol abuse causes many health problems.??Sometimes this can happen after only drinking a ???little. ??The effects depend on how much you drink at one time and how often you drink. The effects also depend on how long you drink. For example, months, years, or decades.??Alcohol affects all parts of your body Brain Alcohol affects the central nervous system. It can damage parts of the brain that control your balance and gait, memory, thinking, and emotions. It can cause: ??? Memory loss ??? Blackouts ??? Depression ??? Agitation ??? Sleep problems ??? Seizures These changes may be longterm (permanent). Heart and blood vessels Alcohol can damage heart muscle (cardiomyopathy). This can lead to: ??? Trouble breathing ??? Irregular heartbeat ??? Atrial fibrillation ??? Leg swelling ??? Heart failure Alcohol also makes the blood vessels stiff. This causes high blood pressure. All of these problems raise your risk of having a heart attack or stroke. Liver Alcohol causes fat to build up in the liver. This affects how the liver works. Alcohol also raises the risk for hepatitis. It can cause: ??? Belly (abdominal) pain ??? Belly swelling ??? Loss of appetite ??? Yellowed eyes or skin (jaundice) ??? Bleeding problems ??? Cirrhosis This can make it harder for you to fight off infections. The liver changes keep it from removing toxins in your blood that can cause brain disease (encephalopathy). This condition cause: ??? Confusion ??? Changed level of consciousness ??? Personality changes ??? Memory loss ??? Seizures, coma, and The liver changes can also cause the veins in your esophagus and stomach to become thin and swollenwith blood (varices). This can cause bleeding and vomiting of blood. Pancreas Alcohol can cause swelling (inflammation) of the pancreas (pancreatitis). This can cause belly pain, fever, and diabetes. Immune system Alcohol weakens your immune system. This makes it harder for you to fight infections and colds. It also makes it more likely for you to get pneumonia and tuberculosis. Cancer Alcohol raises the risk for several types of cancer. These include cancer of the mouth, esophagus, pharynx, larynx, liver, and breast. Sexual function Alcohol can lead to sexual problems. ?? Home care These guidelines will help you deal with alcohol abuse: ??? Admit you have a problem with alcohol. ??? Ask for help from your healthcare provider. Also ask for help from trusted family members or close friends. ??? Get help from people trained in dealing with alcohol abuse. This may be one-on-one counseling or group therapy. Or it may be an alcohol treatment program. ??? Join a self-help group for alcohol abuse such as Alcoholics Anonymous. ??? Stay away from people who abuse alcohol or tempt you to drink. ?? Follow-up care Follow up with your healthcare provider, or as advised. Contact these groups to get help: ??? Alcoholics Anonymous (AA) at www.aa.org. Or check the phone book for meetings near you. ??? National Alcohol and Substance Abuse Information Center (NASAIC) at www.addictioncareInSite Wireless.RunRev or 675-587-1561 ??? National Springs on Alcoholism and Drug Dependence (NCADD) at www.ncadd.org or 018-IQC-CZNX (141-630-2801) ?? Call 911 Call 911 if any of these occur: ??? Trouble breathing or slow, irregular breathing ??? Chest pain ??? Sudden weakness on one side of your body or sudden trouble speaking ??? Heavy bleeding or vomiting blood ??? Very drowsy or trouble awakening ??? Fainting or loss of consciousness ??? Rapid heart rate ??? Seizure ?? When to seek medical care Call your healthcare provider right away if any of these occur:? Confusion ??? Seeing, hearing, or feeling things that aren???t there (hallucinations) ??? Pain in your upper belly that gets worse ??? Vomiting that continues, vomiting with blood, or black or tarry stools ??? Severe shakiness ?? Last Reviewed Date: 2021 ?? 7975-9282 [employer]. All rights reserved. This information is not intended as a substitute for professional medical care. Always follow your healthcare professional's instructions. ?? CT Head WO contrast * BHSPowerscribe , CIS S: TRANSCRIBE Teddy LEE, Gerard S: VERIFY Giorgio LEE, Tushar Marinelli: SIGN Event Display: Result: Authored Date: [id number] CT Head/Brain W/O Contrast HX OF PRESENT ILLNESS: EtOH, homeless. Reason: Trauma. Clinical Question(s): Hematoma. TECHNIQUE: Noncontrast head CT using axial technique and reconstructed in axial and coronal planes.Weight-based protocol using automatic tube modulation was used to optimize exposure parameters. CTDIvol Head: 46.50 mGy, DLP Head: 772 mGy*cm. COMPARISON: 08/24/2022, 08/14/2022, 07/30/2022. FINDINGS: BRAIN and EXTRA-AXIAL SPACES: There is a thin crescentic shaped slightly hyperdense subdural collection along the right parietal lobe measuring approximately 5.8 cm in length and up to 0.7 cm in thickness (2 2:82, 204:35). No evidence of mass effect or midline shift. There is an additional 1.2 x 1.3 cm triangular-shaped hyperdense subdural collection bordering the right anterior aspect of the falx cerebri (2 2:95, 204:12). No evidence of mass effect or midline shift. Clancy-white matter differentiation is well preserved. No acute infarct. Mild prominence of the ventricles and sulci consistent with parenchymal volume loss. Mild low-density white matter changes. CALVARIUM, SKULL BASE AND SOFT TISSUES: No fractures or suspicious bony lesions. The paranasal sinuses and mastoid air cells are clear. Visualized orbits and globes are intact. The extracranial soft tissues are unremarkable. IMPRESSION: Acute on chronic right frontal and parietal subdural hemorrhage. No significant mass effect or midline shift. Results were relayed by [employer] by Dr. Alvares to Tricia Morales DO on 09/07/2022 at 2:00 AM. I have personally reviewed the images and I agree with this report. WSN: [id number] Ordering Physician: Tricia Morales Dictated By: Tushar Alvares MD Dictated Date/Time: 09/07/22 7:39 am Reviewed By: Gerard Espinal MD Signed By: Gerard Espinal MD Signed Date/Time: 09/07/22 7:44 am Transcribed By: MIRNA Transcribed Date/Time: 09/07/22 2:01 am * TRAV Pacheco S: TRANSCRIBE Gerard Espinal MD: VERIFY Event Display: Result: Authored Date: [id number] CT Head/Brain W/O Contrast INDICATION: Reason: Trauma; Clinical Question(s): Subarachnoid Hemorrhage; Special Instructions: [address] HEAD (i.e. at 7:30 am); Order Comment: TECHNIQUE: Noncontrast head CT using axial technique and reconstructed in axial and coronal planes.Iterative reconstruction techniques are used to optimize dose and image quality. CTDIvol Head: 48.20 mGy, DLP Head: 772 mGy*cm. COMPARISON: Earlier the same day. FINDINGS: Sole Leveling Machine Operator view findings, lines and tubes: None. BRAIN AND EXTRA-AXIAL SPACES: No parenchymal hemorrhage, midline shift, or mass effect. Clancy-white matter differentiation is wellpreserved. No acute infarct. Mild prominence of the ventricles and sulci consistent with parenchymal volume loss. Mild low-density white matter changes. No significant change in size of right frontal and right parietal subdural collections. No subarachnoid or epidural collections. CALVARIUM, SKULL BASE, AND SOFT TISSUES: No fractures or suspicious bony lesions. The paranasal sinuses and mastoid air cells are clear. Visualized orbits and globes are intact. The extracranial soft tissues are unremarkable. IMPRESSION: Unchanged size of right frontoparietal subdural hematomas. WSN: [id number] Ordering Physician: Jia Rhoades Dictated By: Gerard Espinal MD Dictated Date/Time: 09/07/22 8:24 am Reviewed By: Gerard Espinal MD Signed By: Gerard Espinal MD Signed Date/Time: 09/07/22 8:24 am Transcribed By: MIRNA Transcribed Date/Time: 09/07/22 8:22 am Portable XR Chest Views * TRAV Pacheco S: TRANSCRIBE Fide Glover MD: VERIFY Event Display: Result: Authored Date: [id number] Examination: Portable chest performed on 09/07/2022. History: Chest pain. Findings: A frontal view of the chest is compared to a prior study dated 08/14/2022. The cardiac and mediastinal silhouettes are within normal limits. The lungs are clear. Healed left rib fractures are noted. There is deformity of the left AC joint, which may be posttraumatic. Embolization coils within the upper abdomen and a TIPS shunt are seen. IMPRESSION: There is no acute cardiopulmonary disease. WSN: [id number] Ordering Physician: Tricia Morales Dictated By: Fide Glover MD Dictated Date/Time: 09/07/22 8:09 am Reviewed By: Fide Glover MD Signed By: Fide Glover MD Signed Date/Time: 09/07/22 8:09 am Transcribed By: MIRNA Transcribed Date/Time: 09/07/22 8:08 am Patient Care team information Care Team Personnel Name: Alexandra Colmenares RN Position: [facility] ED RN W/OE and Tasks Member Role: Primary Care Nurse Name: Garima Manzano RN Position: [facility] RN Member Role: Primary Care Nurse Name: Malgorzata Marinelli RN Position: [facility] RN Member Role: Primary Care Nurse Name: Joyce Roach RN Position: [facility] RN Member Role: Primary Care Nurse Name: Mary Suazo RN Position: [facility] RN Member Role: Primary Care Nurse Name: Andres Pressley RN Position: [facility] RN Member Role: Primary Care Nurse Name: Jany Baig DO Position: [facility] Primary Care Physician Member Role: PCP Address: Address: [address] [place] [address] Adult & Pediatric Medicine [address] Name: Neida Ballard RN Position: S RN Member Role: Primary Care Nurse Name: Kaye Payne RN Position: S RN Member Role: Primary Care Nurse Name: Garima Hutchinson Position: [facility] RN Member Role: Primary Care Nurse Name: Malgorzata Austin Position: S RN Member Role: Primary Care Nurse Name: Torrie Hernandez RN Position: [facility] OB RN Member Role: Primary Care Nurse Name: Gretchen Knutson RN Position: [facility] SN RN Member Role: Primary Care Nurse Name: Aislinn Mckee RN Position: S RN Member Role: Primary Care Nurse Name: Ashley Mcelroy Position: S RN Member Role: Primary Care Nurse Name: Cody Garcia Position: [facility] Associate Professional Member Role: Lifetime Consulting Provider Address: Address: [address] [place] [id number]- Name: Ge Covarrubias RN Position: [facility] RN Member Role: Primary Care Nurse Name: Orin Elmore RN Position: [facility] ED RN W/OE and Tasks Member Role: Primary Care Nurse Name: Allegra Liu RN Position: [facility] PCO RN Member Role: Primary Care Nurse Name: Shayan Pandya MD Position: [facility] Renal MD Member Role: Lifetime Consulting Physician Address: Address: [address] [place] [address] [address] [facility], [place] [address]- Name: Darlene Rodrigez RN Position: [facility] RN Member Role: Primary Care Nurse Name: Kwan Mills RN Position: [facility] RN Member Role: Primary Care Nurse Name: Dolores Can RN Position: [facility] RN Member Role: Primary Care Nurse Name: Kim Rendon RN Position: [facility] RN Member Role: Primary Care Nurse Name: Monica Rowell RN Position: [facility] RN Member Role: Primary Care Nurse Name: Salvatore HAYES Attending Position: [facility] ED Medicine MD Name: Macrina Colmenares Position: [facility] ED TA [facility] Member Role: Patient Care Provider Name: Sara Valdez RN Position: [facility] ED RN W/OE and Tasks Member Role: Patient Care Provider Name: Orin Elmore RN Position: [facility] ED RN W/OE and Tasks Member Role: Patient Care Provider Name: Ayah Osman Position: [facility] ED TA [facility] Member Role: Brooch Maker Novelty Care Team Related Persons Name: MARLEN BASSETT Address: home [address] [place] [address] Name: DUCBRIANWU MARLEN Address: home [address] [place] [address] Name: NICK BASSETT Name: BILL BASSETT Address: home [address] [place] [address]
--- OUTSIDE RECORDS SUMMARY | 2023-12-15 20:50 | XMS_ITS | Continuity of Care Document ---
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 Refills 5, Maintenance, 10/21/21 10:15:00 EDT, Route to Pharmacy Electronically, [email or web address], Partial fill upon patient request if the prescription is for a schedule II opioid drug.... Start Date: 10/21/21 Status: Ordered Co Q-10 100 mg oral capsule 1 capsule, By Mouth, 4 times a day, # 120 capsule, 6 Refills, [email or web address], 174, cm, 02/27/2115:17:00 EDT, Height, 81, kg, 02/27/21 14:06:00 EDT, Dry Weight Start Date: 07/08/21 Status: Ordered fluticasone 50 mcg/inh nasal spray See Instructions, USE 1 SPRAY INTO EACH NOSTRIL TWICE A DAY, # 16 Gm, 5 Refills, [email or web address], 30, USE 1 SPRAY INTO EACH NOSTRIL TWICE A DAY, 174, cm, 07/14/21 8:16:00 EST, Height, 81, kg, 02/27/21 14:06:00 EDT, Dry Weight Start Date: 08/04/21 Status: Ordered folic acid 1 mg oral tablet 1 mg, 1, tablet, By Mouth, Daily, # 90 tablet, Refills 4, Tot. Refills 4, Maintenance, 10/27/21 10:40:00 EDT, Route to Pharmacy Electronically, [email or web address], Partial fill upon patient request if the prescription is for a schedule II opioid drug.... Start Date: 10/27/21 Stop Date: 01/20/23 Status: Ordered gabapentin 300 mg oral capsule 300 mg, 1, capsule, By Mouth, Daily at bedtime, note dose change, # 90 capsule, Refills 4, Tot. Refills 4, Maintenance, 10/27/21 10:39:00 EDT, Route to Pharmacy Electronically, [email or web address], Partial fill upon patient request if the prescription... Start Date: 10/27/21 Stop Date: 01/20/23 Status: Ordered hydrOXYzine hydrochloride 25 mg oral tablet 1 TO 2 TABLETS, By Mouth, 3 times a day, PRN NEEDED FOR ANXIETY (VIAL), # 60 tablet, 0 Refills, [email or web address], 175, cm, 10/27/21 10:11:00 EDT, Height, 87, kg, 09/27/21 21:30:00 EDT, Dry Weight Start Date: 10/29/21 Status: Ordered lactulose 10 gm/15 ml oral syrup See Instructions, TAKE 30ML BY MOUTH THREE TIMES DAILY NEEDED TO ACHEIVE 3-4 BOWL MOVEMENTS PER DAY, # 3,000 mL, 10 Refills, [facility], 30, TAKE 30ML BY MOUTH THREE TIMES DAILY NEEDED TO ACHEIVE 3-4 BOWL MOVEMENTS PER DAY, 174, cm, 02/12... Start Date: 07/02/21 Status: Ordered Lasix 40 mg oral tablet 40 mg, 1, tablet, By Mouth, 2 times a day, # 60 tablet, Refills 1, Tot. Refills 1, Maintenance, 10/21/21 10:15:00 EDT, Route to Pharmacy Electronically, [email or web address], Partial fill upon patient request if the prescription is for a schedule II opi... Start Date: 10/21/21 Stop Date: 12/20/21 Status: Ordered magnesium oxide 400 mg oral tablet 1 tablet, By Mouth, 2 times a day, # 60 tablet, 0 Refills, [email or web address], 175, cm, 10/27/21 10:11:00 EDT, Height, 87, kg, 09/27/21 21:30:00 EDT, Dry Weight Start Date: 10/29/21 Status: Ordered Melatonin 3 mg oral tablet 1 tablet, By Mouth, Daily at bedtime, PRN NEEDED FOR INSOMNIA (PACKAGE IN TRAY), # 60 tablet, 5 Refills, Maintenance, 06/02/21 16:17:00 EST, [facility], 28, 1 tablet By Mouth Daily [...] Date: 10/21/21 Stop Date: 04/19/22 Status: Ordered pyridoxine 50 mg oral tablet 50 mg, 1, tablet, By Mouth, Daily, for 90 days, # 90 tablet, Refills 4, Tot. Refills 4, Acute 01/15/23 11:42:00 EDT, 10/22/21 11:42:00 EDT, Route to Pharmacy Electronically, [facility], Partial fill upon patient request if the prescription is... Start Date: 10/22/21 Stop Date: 01/15/23 Status: Ordered Tab-A-Jesse oral tablet 1 tablet, By Mouth, Daily, # 90 tablet, 9 Refills, [facility], 28, TAKE 1 TABLET BY MOUTH ONCE A DAY, 174, cm, 07/14/21 8:16:00 EST, Height, 81, kg, 02/27/21 14:06:00 EDT, Dry Weight Start Date: 07/22/21 Status: Ordered traZODone 50 mg oral tablet See Instructions, TAKE 1 TO 2 TABLETS BY MOUTH AT BEDTIME (ONE DOSE IN VIAL), # 60 tablet, Refills 0, Instructions Replace Required Details, Route to Pharmacy Electronically, [facility], 175,cm, 10/27/21 10:11:00 EDT, Height, 87, kg, 09/27/21... Start Date: 10/29/21 Status: Ordered Vitamin B1 100 mg oral tablet 1, tablet, By Mouth, Daily, # 90 tablet, Refills 1, Route to Pharmacy Electronically, [facility], 174, cm, 02/27/21 15:17:00 EDT, Height, 81, kg, 02/27/21 14:06:00 EDT, Dry Weight Start Date: 06/16/21 Status: Ordered Xifaxan 550 mg oral tablet 1 tablet, By Mouth, 2 times a day, # 60 tablet, 1 Refills, [facility], 170, cm, 11/05/21 11:11:00 EDT, Height, [...] APTU in 06/2015(Confirmed) Active Neuropathy(Confirmed) 6 Active Normocytic anemia(Confirmed) Active ANA LUISA (obstructive sleep apnea)(Confirmed) Active [...]
--- OUTSIDE RECORDS SUMMARY | 2023-12-15 20:50 | XMS_ITS | Continuity of Care Document ---
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 Role Phone Jany Baig DO Primary Care Physician Encounter [facility] Date(s): 09/03/22 - 09/10/22 [facility] [address] [place] [address]- Attending Physician: Jany Baig DO Allergies, Adverse [...] 08/02/12 Give n 1Result Comment: [facility]: [id number] 2Result Comment: [04/29/2017] [id number] 3Admin Note: FLUARIX 4Admin Note: 3 RDINJ 5Admin Note: #2 Medications acamprosate 333 mg oral delayed release tablet 1 tablet = 333 mg, By Mouth, 3 times a day, # 90 tablet, 4 Refills, Maintenance, 09/03/22 14:59:00 EDT, EC Tablet, [facility], Partial fill upon patient request if the prescription is for a schedule II opioid drug., 169, cm, 09/03/22 14:21:00... Start Date: 09/03/22 Status: Ordered amLODIPine 5 mg oral tablet See Instructions, TAKE 1 TABLET BY MOUTH ONCE A DAY^1R1, # 30 tablet, 5 Refills, Maintenance, 05/13/22 16:24:00 EST, [facility], 175, cm, 04/09/22 15:34:00 EDT, Height, 78.3, kg, 12/26/21 19:05:00 EDT, Dry Weight Start Date: 05/13/22 Status: Ordered baclofen 10 mg oral tablet See Instructions, TAKE 1 TABLET BY MOUTH THREE TIMES DAILY, # 90 tablet, Refills 0, Maintenance, 08/07/22 12:26:00 EST, Instructions Replace Required Details, Route to Pharmacy Electronically, [facility], 176, cm, 08/07/22 11:37:00 EST, Height... Start Date: 08/07/22 Status: Ordered Co Q-10 100 mg oral capsule See Instructions, TAKE 1 CAPSULE BY MOUTH FOUR TIMES DAILY, # 120 capsule, 6 Refills, Maintenance, 08/07/22 12:13:00 EST, [facility], 176, cm, 08/07/22 11:37:00 [...] Gm, 11 Refills, Maintenance, 08/07/22 12:12:00 EST, [facility]/pharmacy #[id number], 30, USE 1 SPRAY(S) INTO EACH NOSTRIL TWICE A DAY, 176, cm,08/07/22 11:37:00 EST, Height, 79.8, kg, 07/31/22 2... Start Date: 08/07/22 Status: Ordered folic acid 1 mg oral tablet 1 mg, 1, tablet, By Mouth, Daily, # 90 tablet, Refills 4, Tot. Refills 4, Maintenance, 10/27/21 10:40:00 EDT, Route to Pharmacy Electronically, [facility], Partial fill upon patient request if the prescription is for a schedule II opioid drug.... Start Date: 10/27/21 Stop Date: 01/20/23 Status: Ordered furosemide 20 mg oral tablet 1, tablet, By Mouth, Daily, R1., # 30 tablet, Refills 5, Tot. Refills 5, Maintenance, 09/03/22 14:50:00 EDT, [facility], [facility], 169, cm, 09/03/22 14:21:00 EDT, Height, 69, kg, 08/16/22 1:04:00 EST, Dry Weight Start Date: 09/03/22 Status: Ordered gabapentin 300 mg oral capsule 300 mg, 1, capsule, By Mouth, 2 times a day, note dose/frequency change, # 180 capsule, Refills 4, Tot. Refills 4, Maintenance, 09/03/22 14:55:00 EDT, Route to Pharmacy Electronically, [facility], 169, cm, 09/03/22 14:21:00 EDT, Height, 69, kg... Start Date: 09/03/22 Stop Date: 11/27/23 Status: Ordered hydrOXYzine hydrochloride 25 mg oral tablet 1 TO 2 TABLETS, By Mouth, Daily at bedtime, PRN NEEDED FOR ANXIETY (VIAL), # 60 tablet, 11 Refills, Maintenance, 03/13/22 8:38:00 EDT, [facility], 175, cm, 01/06/22 10:34:00 EDT, Height, 78.3, kg, 12/26/21 19:05:00 EDT, Dry Weight Start Date: 03/13/22 Status: Ordered lactulose 10 gm/15 ml oral syrup See Instructions, TAKE 30ML BY MOUTH THREE TIMES DAILY NEEDED TO ACHEIVE 3-4 BOWL MOVEMENTS PER DAY, # 3,000 mL, 10 Refills, [facility], 30, 174, cm, 02/27/21 15:17:00 EDT, Height, 81, kg,02/27/21 14:06:00 EDT, Dry Weight Start Date: 07/02/21 Status: Ordered Lidoderm 5% film 1 patch, Topically, Daily, remove patches after 12 hours NSAIDS contraindicated High dose tylenol contraindicated remove patches after 12 hours Nueropathy, # 30 patch, 5 Refills, Maintenance, 09/03/22 16:34:00 EDT, [facility], Partial klaudia... Start Date: 09/03/22 Status: Ordered magnesium oxide 400 mg oral tablet 1 tablet, By Mouth, 2 times a day, # 60 tablet, 11 Refills, Maintenance, 03/13/22 8:37:00 EDT, [facility], 175, cm, 01/06/22 10:34:00 EDT, Height, 78.3, kg, 12/26/21 19:05:00 EDT, Dry Weight Start Date: 03/13/22 Status: Ordered Melatonin 3 mg oral tablet 1 tablet, By Mouth, Daily at bedtime, PRN NEEDED FOR INSOMNIA (PACKAGE IN TRAY)^1R4, # 60 tablet, 5 Refills, Maintenance, 06/12/22 18:11:00 EST, [facility], 60, TAKE 1 TABLET [...] EDT, Route to Pharmacy Electronically, [facility], Partial fill upon patient request if the prescription is for a schedule II opioid drug... Start Date: 09/03/22 Stop Date: 03/02/23 Status: Ordered PHENobarbital 30 mg oral tablet See Instructions, Taper 09/08-Day 1 -90mg Daily Day 2-3-60mg BID Day 4-5 30mg BID, # 15 tablet, 0 Refills, Maintenance, 09/08/22 15:05:00 EDT, [facility], Partial fill upon patient request if the prescription is for a schedule II op... Start Date: 09/08/22 Status: Ordered pyridoxine 50 mg oral tablet 50 mg, 1, tablet, By Mouth, Daily, for 90 days, # 90 tablet, Refills 4, Tot. Refills 4, Acute 01/15/23 11:42:00 EDT, 10/22/21 11:42:00 EDT, Route to Pharmacy Electronically, [facility], Partial fill upon patient request [...] 90 tablet, 9 Refills, 08/07/22 12:27:00 EST, [facility]/pharmacy #[id number], 28, 1tablet By Mouth Daily, 176, cm, 08/07/22 11:37:00 EST, Height, 79.8, kg, 07/31/22 22:40:00 EST, DryWeight Start Date: 08/07/22 Status: Ordered traZODone 50 mg oral tablet 2 tablets, By Mouth, Daily at bedtime, # 60 each, Refills 5, Tot. Refills 5, Maintenance, 09/03/22 17:13:00 EDT, Route to Pharmacy Electronically, [facility], 169, cm, 09/03/22 14:21:00 EDT, Height, 69, kg, 08/16/22 1:04:00 EST, Dry Weight Start Date: 09/03/22 Status: Ordered Vitamin B1 100 mg oral tablet 1, tablet, By Mouth, Daily, # 90 tablet, Refills 3, Maintenance, 03/13/22 8:37:00 EDT, Route to Pharmacy Electronically, [facility], 175, cm, 01/06/22 10:34:00 EDT, Height, 78.3, kg, 12/26/2218:05:00 EDT, Dry Weight Start Date: 03/13/22 Status: Ordered Xifaxan 550 mg oral tablet 1 tablet, By Mouth, 2 times a day, ^1R1,1R4., # 60 tablet, 1 Refills, Maintenance, 06/12/22 18:10:00 EST, [facility], 179, cm, 06/08/22 7:37:00 EST, Height, [...] recent to oldest [Reference Range]: 1 Height 169 cm (09/03/22 2:21 PM) Weight 82.1 kg (09/03/22 2:21 PM) Oxygen Saturation [94-100 %] 99 % (09/03/22 2:21 PM) Pulse Rate [55-90 bpm] 94 bpm *H* (09/03/22 2:21 PM) Body Mass Index [18.5-24.99 kg/m2] 28.75 kg/m2 *H* (09/03/22 2:21 PM) Blood Pressure [90-138/55-84 mm Hg] 139/ 83mm Hg *H* (09/03/22 2:21 PM) Mode of Delivery (Oxygen) Room air (09/03/22 2:21 PM) Blood pressure sites Arm, left (09/03/22 2:21 PM) Weight Obtained Via Standing scale (09/03/22 2:21 PM) Social History Social History Type Response Smoking Status 10 or more cigarette s (1/2 pack or more)/day in last 30 days entered on: 02/04/19 Sex Note * Sapna Turner: PERFORM, SIGN, VERIFY Event Display: Patient Education/Instruction Authored Date: [id number] [facility] Clinical Summary Name GEMA CABEZAS Age 47 Years 1975 PCP Jany Baig DO PCP Visit Date 09/03/2022 13:56:00 Additional Instructions: Scheduled Appointments?? Future Appointments ?*[facility] ?[address]??[place],??[place],??[address] ?Phone:??--?Fax:??-- ?Appt. Date:??11/13/2022?10:40 AM ?Scheduled Provider:??Jany Baig DO ?[facility] ?[address] ?[facility],??[address] ?Phone:??[phone]?Fax:??-- ?Appt. Date:??02/05/2023?9:00 AM ?Scheduled Provider:??[id number] Follow-Up Instructions ?? Diagnosis Medications: Please continue your medications until treatment is completed or stopped by your provider. Discuss any questions related to medications with your provider. New Medications [facility], [address] [place] [id number], [phone] Acamprosate (acamprosate 333 mg oral delayed release tablet) 1 tab(s) Oral 3 times a day. Refills: 4. Next Dose: Medications to Continue Taking That Have Changed [facility], [address] [place] [address] [phone], [phone] - Gabapentin (gabapentin 300 mg oral capsule) 1 capsule Oral twice a day for 90 Days. note dose/frequency change. Refills: 4. Next Dose: - Pantoprazole (pantoprazole 40 mg oral delayed release tablet) 1 tab(s) Oral Daily for 90 Days. ^1R1.. Refills: 4. Next Dose: - Paroxetine (PARoxetine 10 mg oral tablet) 1 tab(s) Oral Daily for 90 Days. Refills: 1. Next Dose: Medications to Continue with No Changes [facility], [address] [place] [address] [id number], [phone] Furosemide (furosemide 20 mg oral tablet) 1 tab(s) Oral Daily. R1.. Refills: 5. Next Dose: These medications were not printed or sent to your pharmacy Acetaminophen (acetaminophen 500 mg oral tablet) 1 tab(s) Oral 4 times a day as needed NEEDED FOR PAIN, MAX 4. PER DAY (VIAL.. Refills: 11. Next Dose: Amlodipine (amLODIPine 5 mg oral tablet) TAKE 1 TABLET BY MOUTH ONCE A DAY^1R1. Refills: 5. Next Dose: Baclofen (baclofen 10 mg oral tablet) TAKE 1 TABLET BY MOUTH THREE TIMES DAILY. Refills: 0. Next Dose: Durable Medical Equipment (Compression Stockings) surgical, calf length 20-30 mm Hg M79.89 M79.606. Refills: 2. Next Dose: Durable Medical Equipment (R aircast ankle-stirrup support brace) Dx: R inversion ankle sprain s93.409a. Refills: 0. Next Dose: Fluticasone Nasal (fluticasone 50 mcg/inh nasal spray) USE 1 SPRAY(S) INTO EACH NOSTRIL TWICE A DAY. Refills: 11. Next Dose: Folic Acid (folic acid 1 mg oral tablet) 1 tab(s) Oral Daily for 90 Days. Refills: 4. Next Dose: Furosemide (furosemide 20 mg oral tablet) TAKE 1 TABLET BY MOUTH ONCE A DAY^1R1. Refills: 2. Next Dose: HydrOXYzine (hydrOXYzine hydrochloride 25 mg oral tablet) 1 TO 2 TABLETS Oral Daily at Bedtime as needed NEEDED FOR ANXIETY (VIAL). Refills: 11. Next Dose: Lactulose (lactulose 10 gm/15 ml oral syrup) TAKE 30ML BY MOUTH THREE TIMES DAILY NEEDED TO ACHEIVE 3-4 BOWL MOVEMENTS PER DAY. Refills: 10. Next Dose: Lidocaine Topical (Lidoderm 5% film) 1 patch Topically Daily. remove patches after 12 hours NSAIDS contraindicated High dose tylenol contraindicated remove patches after 12 hours Rib fracture. Refills: 5. Next Dose: Magnesium Oxide (magnesium oxide 400 mg oral tablet) 1 tab(s) Oral twice a day. Refills: 11. Next Dose: Melatonin (Melatonin 3 mg oral tablet) 1 tab(s) Oral Daily at Bedtime as needed NEEDED FOR INSOMNIA (PACKAGE IN TRAY)^1R4. Refills: 5. Next Dose: Miscellaneous Rx (Eucerin Original Healing Cream) apply 2 x a day for dry skin dx: eczema L30.9. Refills: 11. Next Dose: Multivitamin (Tab-A-Jesse oral tablet) 1 tab(s) Oral Daily. Refills: 9. Next Dose: Pyridoxine (pyridoxine 50 mg oral tablet) 1 tab(s) Oral Daily for 90 Days. Refills: 4. Next Dose: Rifaximin (Xifaxan 550 mg oral tablet) 1 tab(s) Oral twice a day. ^1R1,1R4.. Refills: 1. Next Dose: Thiamine (Vitamin B1 100 mg oral tablet) 1 tab(s) Oral Daily. Refills: 3. Next Dose: Trazodone (traZODone 50 mg oral tablet) 2 TO 3 TABLETS Oral Daily at Bedtime. #28 VIAL)^2R4.. Refills: 5. Next Dose: Ubiquinone (Co Q-10 100 mg oral capsule) TAKE 1 CAPSULE BY MOUTH FOUR TIMES DAILY. Refills: 6. Next Dose: No Longer Take the Following Medications Potassium Chloride (Potassium Chloride (Eqv-K-Tab) 20 mEq oral tablet, extended release) 2 tab(s) Oral Daily for 90 Days. Refills: 1. Allergy Info:?? NSAIDs; Tylenol; aspirin; ibuprofen Medications Given This Visit Future Orders ?No future orders Vital Signs Height 169 cm Weight 82.1 kg BMI 28.75 kg/m2 Blood Pressure 139 mm Hg/83 mm Hg Temperature Pulse Rate 94 bpm Respiratory Rate 02 Sat Mode of Delivery 99 %/Room air You can now view a summary of your hospital visit from the comfort of your home through a free online portal called [employer]. [employer] is a website that allows you to securely view your medical information including discharge summary, medications and follow-up visits. ??You can alsosend a secure electronic message to your doctor???s office to request appointments, renew medications or just ask a question. You can enroll at [email or web address] or register during your next office [...] primary care provider, you may find a [facility] provider by calling [facility] [employer] [place] [facility] Link at [phone]. For information about the plan of care [...] Team Personnel Name: Alexandra Colmenares RN Position: [facility] ED RN W/OE and Tasks Member Role: Primary Care Nurse Name: Garima Manzano RN Position: [facility] RN Member Role: Primary Care Nurse Name: Malgorzata Marinelli RN Position: S RN Member Role: Primary Care Nurse Name: Joyce Roach RN Position: [facility] RN Member Role: Primary Care Nurse Name: Mary Suazo RN Position: [facility] RN Member Role: Primary Care Nurse Name: Andres Pressley RN Position: [facility] RN Member Role: Primary Care Nurse Name: Jany Baig DO Position: [facility] Primary Care Physician Member Role: PCP Address: Address: [address] [place] [address] Adult & Pediatric Medicine [address] Name: Neida Ballard RN Position: [facility] RN Member Role: Primary Care Nurse Name: Kaye Payne RN Position: [facility] RN Member Role: Primary Care Nurse Name: Garima Hutchinson Position: [facility] RN Member Role: Primary Care Nurse Name: Malgorzata Austin Position: [facility] RN Member Role: Primary Care Nurse Name: Torrie Hernandez RN Position: [facility] OB RN Member Role: Primary Care Nurse Name: Gretchen Knutson RN Position: [facility] SN RN Member Role: Primary Care Nurse Name: Aislinn Mckee RN Position: [facility] RN Member Role: Primary Care Nurse Name: Ashley Mcelroy Position: [facility] RN Member Role: Primary Care Nurse Name: Cody Garcia Position: [facility] Associate Professional Member Role: Lifetime Consulting Provider Address: Address: [address] [place] [address]- Name: Ge Covarrubias RN Position: [facility] RN Member Role: Primary Care Nurse Name: Orin Elmore RN Position: [facility] ED RN W/OE and Tasks Member Role: Primary Care Nurse Name: Noe LOUIE, Allegra Elliott Position: [facility] PCO RN Member Role: Primary Care Nurse Name: Shayan Pandya MD Position: [facility] Renal MD Member Role: Lifetime Consulting Physician Address: Address: [address] [place] [address] [address] [facility] [place], [place] [address]- Name: Darlene Rodrigez RN Position: [facility] RN Member Role: Primary Care Nurse Name: Kwan Mills RN Position: [facility] RN Member Role: Primary Care Nurse Name: Dolores Can RN Position: [facility] RN Member Role: Primary Care Nurse Name: Kim Rendon RN Position: [facility] RN Member Role: Primary Care Nurse Name: Monica Rowell RN Position: [facility] RN Member Role: Primary Care Nurse Care Team Related Persons Name: MARLEN CABEZAS Address: home [address] [place] [address] Name: MARLEN CABEZAS Address: home [address] [place] [address] Name: NICK CABEZAS Name: GEMA CABEZAS Address: home [address] [place] [address]
--- OUTSIDE RECORDS SUMMARY | 2023-12-15 20:50 | XMS_ITS | Continuity of Care Document ---
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 Name Role Phone Jany Baig DO Primary Care Physician [facility] Date(s): 08/14/22 - 09/13/22 [facility] [address] [place] [address]- Allergies, Adverse Reactions, Alerts Substance Reaction Severity [...] acel (oldterm) 08/02/12 Give n 1Result Comment: [facility]: [id number] 2Result Comment: [04/29/2017] [id number] 3Admin Note: FLUARIX 4Admin Note: 3 RDINJ 5Admin Note: #2 Medications acamprosate 333 mg oral delayed release tablet 1 tablet = 333 mg, By Mouth, 3 times a day, # 90 tablet, 4 Refills, Maintenance, 09/03/22 14:59:00 EDT, [facility] Table[facility], [facility], Partial fill upon patient request if the prescription is for a schedule II opioid drug., 169, cm, 09/03/22 14:21:00... Start Date: 09/03/22 Status: Ordered amLODIPine 5 mg oral tablet See Instructions, TAKE 1 TABLET BY MOUTH ONCE A DAY^1R1, # 30 tablet, 5 Refills, Maintenance, 05/13/22 16:24:00 EST, [facility], 175, cm, 04/09/22 15:34:00 EDT, Height, 78.3, kg, 12/26/21 19:05:00 EDT, Dry Weight Start Date: 05/13/22 Status: Ordered baclofen 10 mg oral tablet See Instructions, TAKE 1 TABLET BY MOUTH THREE TIMES DAILY, # 90 tablet, Refills 0, Maintenance, 08/07/22 12:26:00 EST, Instructions Replace Required Details, Route to Pharmacy Electronically, [facility], 176, cm, 08/07/22 11:37:00 EST, Height... Start Date: 08/07/22 Status: Ordered Co Q-10 100 mg oral capsule See Instructions, TAKE 1 CAPSULE BY MOUTH FOUR TIMES DAILY, # 120 capsule, 6 Refills, Maintenance, 08/07/22 12:13:00 EST, [facility], 176, cm, 08/07/22 11:37:00 EST, Height, [...] 11 Refills, Maintenance, 08/07/22 12:12:00 EST, [facility]/pharmacy #[id number], 30, USE 1 SPRAY(S) INTO EACH NOSTRIL TWICE A DAY, 176, cm,08/07/22 11:37:00 EST, Height, 79.8, kg, 07/31/22 2... Start Date: 08/07/22 Status: Ordered folic acid 1 mg oral tablet 1 mg, 1, tablet, By Mouth, Daily, # 90 tablet, Refills 4, Tot. Refills 4, Maintenance, 10/27/21 10:40:00 EDT, Route to Pharmacy Electronically, [facility], Partial fill upon patient request if the prescription is for a schedule II opioid drug.... Start Date: 10/27/21 Stop Date: 01/20/23 Status: Ordered furosemide 20 mg oral tablet 1, tablet, By Mouth, Daily, R1., # 30 tablet, Refills 5, Tot. Refills 5, Maintenance, 09/03/22 14:50:00 EDT, Route to Pharmacy Electronically, [facility], 169, cm, 09/03/22 14:21:00 EDT, Height, 69, kg, 08/16/22 1:04:00 EST, Dry Weight Start Date: 09/03/22 Status: Ordered gabapentin 300 mg oral capsule 300 mg, 1, capsule, By Mouth, 2 times a day, note dose/frequency change, # 180 capsule, Refills 4, Tot. Refills 4, Maintenance, 09/03/22 14:55:00 EDT, Route to Pharmacy Electronically, [facility], 169, cm, 09/03/22 14:21:00 EDT, Height, 69, kg... Start Date: 09/03/22 Stop Date: 11/27/23 Status: Ordered hydrOXYzine hydrochloride 25 mg oral tablet 1 TO 2 TABLETS, By Mouth, Daily at bedtime, PRN NEEDED FOR ANXIETY (VIAL), # 60 tablet, 11 Refills, Maintenance, 03/13/22 8:38:00 EDT, [facility], 175, cm, 01/06/22 10:34:00 EDT, Height, 78.3, kg, 12/26/21 19:05:00 EDT, Dry Weight Start Date: 03/13/22 Status: Ordered lactulose 10 gm/15 ml oral syrup See Instructions, TAKE 30ML BY MOUTH THREE TIMES DAILY NEEDED TO ACHEIVE 3-4 BOWL MOVEMENTS PER DAY, # 3,000 mL, 10 Refills, [facility], 30, 174, cm, 02/27/21 15:17:00 EDT, Height, 81, kg,02/27/21 14:06:00 EDT, Dry Weight Start Date: 07/02/21 Status: Ordered Lidoderm 5% film 1 patch, Topically, Daily, remove patches after 12 hours NSAIDS contraindicated High dose tylenol contraindicated remove patches after 12 hours Nueropathy, # 30 patch, 5 Refills, Maintenance, 09/03/22 16:34:00 EDT, [facility], Partial klaudia... Start Date: 09/03/22 Status: Ordered magnesium oxide 400 mg oral tablet 1 tablet, By Mouth, 2 times a day, # 60 tablet, 11 Refills, Maintenance, 03/13/22 8:37:00 EDT, [facility], 175, cm, 01/06/22 10:34:00 EDT, Height, 78.3, kg, 12/26/21 19:05:00 EDT, Dry Weight Start Date: 03/13/22 Status: Ordered Melatonin 3 mg oral tablet 1 tablet, By Mouth, Daily at bedtime, PRN NEEDED FOR INSOMNIA (PACKAGE IN TRAY)^1R4, # 60 tablet, 5 Refills, Maintenance, 06/12/22 18:11:00 EST, [facility], 60, TAKE 1 TABLET BY MOUTH [...] 09/03/22 14:53:00 EDT, Route to Pharmacy Electronically, [facility], Partial fill upon patient request if the prescription is for a schedule II opioid drug... Start Date: 09/03/22 Stop Date: 03/02/23 Status: Ordered PHENobarbital 30 mg oral tablet See Instructions, Taper 09/08-Day 1 -90mg Daily Day 2-3-60mg BID Day 4-5 30mg BID, # 15 tablet, 0 Refills, Maintenance, 09/08/22 15:05:00 EDT, [facility], Partial fill upon patient request if the prescription is for a schedule II op... Start Date: 09/08/22 Status: Ordered pyridoxine 50 mg oral tablet 50 mg, 1, tablet, By Mouth, Daily, for 90 days, # 90 tablet, Refills 4, Tot. Refills 4, Acute 01/15/23 11:42:00 EDT, 10/22/21 11:42:00 EDT, Route to Pharmacy Electronically, [facility], Partial fill upon patient request if [...] 90 tablet, 9 Refills, 08/07/22 12:27:00 EST, [facility]/pharmacy #[id number], 28, 1tablet By Mouth Daily, 176, cm, 08/07/22 11:37:00 EST, Height, 79.8, kg, 07/31/22 22:40:00 EST, DryWeight Start Date: 08/07/22 Status: Ordered traZODone 50 mg oral tablet 2 tablets, By Mouth, Daily at bedtime, # 60 each, Refills 5, Tot. Refills 5, Maintenance, 09/03/22 17:13:00 EDT, Route to Pharmacy Electronically, [facility], 169, cm, 09/03/22 14:21:00 EDT, Height, 69, kg, 08/16/22 1:04:00 EST, Dry Weight Start Date: 09/03/22 Status: Ordered Vitamin B1 100 mg oral tablet 1, tablet, By Mouth, Daily, # 90 tablet, Refills 3, Maintenance, 03/13/22 8:37:00 EDT, Route to Pharmacy Electronically, [facility], 175, cm, 01/06/22 10:34:00 EDT, Height, 78.3, kg, 12/26/2218:05:00 EDT, Dry Weight Start Date: 03/13/22 Status: Ordered Xifaxan 550 mg oral tablet 1 tablet, By Mouth, 2 times a day, ^1R1,1R4., # 60 tablet, 1 Refills, Maintenance, 06/12/22 18:10:00 EST, [facility], 179, cm, 06/08/22 7:37:00 EST, Height, [...] Member Role: Primary Care Nurse Name: Joyce Rocah RN Position: [facility] RN Member Role: Primary Care Nurse Name: Mary Suazo RN Position: [facility] RN Member Role: Primary Care Nurse Name: Andres Pressley RN Position: [facility] RN Member Role: Primary Care Nurse Name: Jany Baig DO Position: [facility] Primary Care Physician Member Role: PCP Address: Address: [address] [place] [address] [facility] [address] Name: Neida Ballard RN Position: [facility] RN Member Role: Primary Care Nurse Name: Kaye Payne RN Position: [facility] RN Member Role: Primary Care Nurse Name: Garima Hutchinson Position: [facility] RN Member Role: Primary Care Nurse Name: Malgorzata Austin Position: [facility] RN Member Role: Primary Care Nurse Name: Torrie Hernandez RN Position: [facility] OB RN Member Role: Primary Care Nurse Name: Gretchen Knutson RN Position: [facility] SN RN Member Role: Primary Care Nurse Name: Aislinn Mckee RN Position: [facility] RN Member Role: Primary Care Nurse Name: Ashley Mcelroy Position: [facility] RN Member Role: Primary Care Nurse Name: Cody Garcia Position: [facility] Associate Professional Member Role: Lifetime Consulting Provider Address: Address: [address] [place] [address] Name: Ge Covarrubias RN [facility] Member Role: Lifetime Consulting Physician Address: Address: [address] [place] [address] [address] [facility] [address] Name: Darlene Rodrigez RN Position: [facility] [...] Team Related Persons Name: MARLEN CABEZAS Address: [place] [address] Name: MARLEN CABEZAS Address: [address] [address] Name: NICK CABEZAS Name: GEMA CABEZAS Address: [place] [address]
--- OUTSIDE RECORDS SUMMARY | 2023-12-15 20:50 | XMS_ITS | Continuity of Care Document ---
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: 10827-963-90 2Result Comment: [04/29/2017] [id number] 3Admin Note: FLUARIX 4Admin Note: 3 RDINJ 5Admin Note: #2 Medications acamprosate 333 mg oral delayed release tablet 2 tablet = 666 mg, By Mouth, 3 times a day, # 180 tablet, 1 Refills, Maintenance, 07/28/23 11:04:00EST, EC Tablet, [facility], Partial fill upon patient request [...] tablet, 2 Refills, Maintenance, 07/28/23 11:06:00 EST, [facility], 175, cm, 07/28/23 9:11:00 EST, Height, 61.3, kg, 07/12/23 23:27:00 EST, Dry Weight Start Date: 07/28/23 Status: Ordered amLODIPine 5 mg oral tablet 1 tablet, By Mouth, Daily, ^1R1., # 30 tablet, 2 Refills, Maintenance, 06/02/23 8:00:00 EST, [facility], 175, cm, 03/22/23 [...] 07/28/23 11:10:00 EST, Route to Pharmacy Electronically, [facility], Partial fill upon patient request if [...] Gm, 12 Refills, Maintenance, 07/28/23 11:06:00 EST, [facility], 28, APPLY TOPICALLY TO AFFECTED AREA(S) [...] Gm, 1 Refills, Maintenance, 07/28/23 12:07:00 EST, [facility], 30, USE 1 SPRAY(S) INTO EACH [...] 07/28/23 12:08:00 EST, Route to Pharmacy Electronically, [facility], 175, cm, 07/28/23 9:11:00 EST, Height, 61.3, kg, 07/12/23 23:27:00 EST, Dry Weight Start Date: 07/28/23 Status: Ordered furosemide 20 mg oral tablet 20 mg, 1, tablet, By Mouth, Every other day, # 30 tablet, Refills 1, Tot. Refills 1, Maintenance, 07/28/23 12:08:00 EST, Route to Pharmacy Electronically, [facility], Partial fill upon patient request if the prescription is for a schedule II... Start Date: 07/28/23 Status: Ordered gabapentin 300 mg oral capsule 300 mg, 1, capsule, By Mouth, Daily at bedtime, note dose/frequency change, # 30 capsule, Refills 1, Tot. Refills 1, Maintenance, 07/28/23 12:09:00 EST, Route to Pharmacy Electronically, [facility], 175, cm, 07/28/23 9:11:00 EST, Height, [...] tablet, 3 Refills, Maintenance, 07/28/23 12:10:00 EST, [facility], 175, cm, 07/28/23 9:11:00 EST, Height, 61.3, kg,07/12/23 23:27:00 EST, Dry Weight Start Date: 07/28/23 Status: Ordered lactulose 10 gm/15 ml oral syrup 30 mL = 20 Gm, By Mouth, 3 times a day, for 30 days, # 2,700 mL, 2 Refills, Acute 10/26/23 12:13:00EDT, 07/28/23 12:13:00 EST, Syrup, [facility], Partial fill upon patient request if [...] 60 tablet, 11 Refills, Maintenance,07/28/23 12:09:00 EST, [facility], 175, cm, 07/28/23 9:11:00 EST, Height, [...] tablet, 5 Refills, Maintenance, 07/28/23 12:09:00 EST, [facility], 60, 1 tablet By Mouth Daily [...] 07/28/23 12:11:00 EST, Route to Pharmacy Electronically, [facility], 175, cm, 07/28/23 9:11:00EST, Height, 61.3, [...] 07/28/23 12:12:00 EST, Route to Pharmacy Electronically, [facility], 175, cm, 07/28/23 9:11:00 EST, Height, 61.3, kg, 07/12/23 23:27:00 EST, Dry Weight Start Date: 07/28/23 Status: Ordered spironolactone 25 mg oral tablet 1, tablet, By Mouth, Daily, ^1R2., # 30 tablet, Refills 5, Tot. Refills 5, Maintenance, 04/14/23 12:41:00 EDT, Route to Pharmacy Electronically, [facility], 175, cm, 03/22/23 6:50:00 EDT, Height, 77.5, kg, 03/20/23 11:30:00 EDT, Dry Weight Start Date: 04/14/23 Status: Ordered Tab-A-Jesse oral tablet 1 tablet, By Mouth, Daily, R1., # 30 tablet, 5 Refills, Maintenance, 05/06/23 19:16:00 EST, [facility], 30, TAKE 1 TABLET BY MOUTH [...] [facility], 175, cm, 12/03/22 11:50:00 EDT, Height,84, kg, 02/12/23 11:30:00 EDT, Dry Weight Start Date: 02/26/23 Status: Ordered traZODone 50 mg oral tablet 2, tablet, By Mouth, Daily at bedtime, ^2R4., # 60 tablet, Refills 5, Tot. Refills 5, Maintenance, 07/28/23 12:12:00 EST, Route to Pharmacy Electronically, [facility], 175, cm, 07/28/23 9:11:00 EST, Height, [...] 07/28/23 12:12:00 EST, Route to Pharmacy Electronically, [facility], 175, cm, 07/28/23 9:11:00 EST, Height, [...] 07/28/23 12:11:00 EST, Route to Pharmacy Electronically, [facility], 175, cm, 07/28/23 9:11:00 EST, Height, [...] each, 1 Refills, Maintenance, 07/28/23 14:33:00 EST, [facility], 175, cm, 07/28/23 9:11:00 EST, Height, [...] Roach RN Position: [facility] ED RN W/OE and Tasks Member Role: Primary Care Nurse Name: Mary Suazo RN Position: [facility] RN Member Role: Primary Care Nurse Name: Lucina Peralta RN Position: [facility] RN Member Role: Primary Care Nurse Name: Maria Esther Craig LPN Position: [facility] RN Member Role: Primary Care Nurse Name: Andres Pressley RN Position: [facility] ED RN W/OE and Tasks Member Role: Primary Care Nurse Name: Jany Baig DO Position: [facility] Physician - Primary Care Member Role: PCP Address: Address: [address] [place] [address] Adult [place] [address]- Name: Kaye Payne RN Position: [facility] RN Member Role: Primary Care Nurse Name: Garima Curry RN Position: [facility] RN [...] Primary Care Nurse Name: Ashley Mcelroy Position: [facility] RN Member Role: Primary Care Nurse Name: Ashok Kevin RN Position: [facility] RN Member Role: Primary Care Nurse Name: Cody Garcia Position: [facility] Associate Professional Member Role: Lifetime Consulting Provider Address: Address: [address] [place] [id number]- Name: Paige Nascimento RN [facility] Lifetime Consulting Physician Address: Address: [address] [facility] [address] [facility], [place] [address]- Name: Kimberley Pittman RN Position: [facility] RN Member Role: Primary Care Nurse Name: Darlene Rodrigez RN Position: [facility] RN Member Role: Primary Care Nurse Name: Dixie Duke RN Position: [facility] RN Member Role: Primary Care Nurse Name: Kwan Mills RN Position: [facility] ED RN W/OE and Tasks Member Role: Primary Care Nurse Name: Ingrid Verdugo RN Position: [facility] RN Member Role: Primary Care Nurse Name: Monica Rowell RN Position: [facility] RN Member Role: Primary Care Nurse Name: Jimi Fitzpatrick RN Position: [facility] RN Member Role: Primary Care Nurse Care Team Related Persons Name: RAULITO MARLEN Address: [address] [place] [address] Name: MARLEN CABEZAS Address: home [address] [place] [address] Name: NICK CABEZAS Name: GEMA CABEZAS Address: [address] [place] [address] Name: ELTON CHENG Address: home [address] [place] [id number]
--- OUTSIDE RECORDS SUMMARY | 2023-12-15 20:50 | XMS_ITS | Continuity of Care Document ---
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 Name Role Phone Jany Baig DO Primary Care Physician Encounter [facility] Date(s): 01/30/22 - 03/19/[address] [address]- Attending Physician: Cristofer Steiner MD Admitting Physician: [...] (oldterm) 08/02/12 Give n 1Result Comment: [04/29/2017] [id number] 2Admin Note: FLUARIX 3Admin Note: 3 RDINJ 4Admin Note: #2 Medications acetaminophen 500 mg oral tablet 1 tablet, By Mouth, 4 times a day, PRN NEEDED FOR PAIN, MAX 4, PER DAY (VIAL., # 50 tablet, 11 Refills, Maintenance, 03/13/22 8:37:00 EDT, [facility], 175, cm, 01/06/22 10:34:00 EDT, Height, 78.3, kg, 12/26/21 19:05:00 EDT, Dry Weight Start Date: 03/13/22 Status: Ordered amLODIPine 5 mg oral tablet 5 mg, 1, tablet, By Mouth, Daily, # 30 tablet, Refills 5, Tot. Refills 5, Maintenance, 10/21/21 10:15:00 EDT, Route to Pharmacy Electronically, [facility], Partial fill upon patient request if the prescription is for a schedule II opioid drug.... Start Date: 10/21/21 Status: Ordered Co Q-10 100 mg oral capsule 1 capsule, By Mouth, 4 times a day, # 120 capsule, 5 Refills, Maintenance, 02/18/22 12:44:00 EDT, [facility], 175, cm, 01/06/22 10:34:00 [...] Gm, 5 Refills, Maintenance, 02/18/22 10:02:00 EDT, [facility], 30, USE 1 SPRAY(S) INTO EACH NOSTRIL TWICE A DAY, 175, cm, 01/06/22 10:34:00 EDT, Height, 78.3, kg, 12/26/21 19... Start Date: 02/18/22 Status: Ordered folic acid 1 mg oral tablet 1 mg, 1, tablet, By Mouth, Daily, # 90 tablet, Refills 4, Tot. Refills 4, Maintenance, 10/27/21 10:40:00 EDT, Route to Pharmacy Electronically, [facility], Partial fill upon patient request if the prescription is for a schedule II opioid drug.... Start Date: 10/27/21 Stop Date: 01/20/23 Status: Ordered furosemide 20 mg oral tablet 1, tablet, By Mouth, 2 times a day, # 60 tablet, Refills 2, Tot. Refills 2, Maintenance, 03/19/22 9:46:00 EDT, Route to Pharmacy Electronically, [facility], 175, cm, 01/06/22 10:34:00 EDT, Height, 78.3, kg, 12/26/21 19:05:00 EDT, Dry Weight Start Date: 03/19/22 Stop Date: 06/17/22 Status: Ordered gabapentin 300 mg oral capsule 600 mg, 2, capsule, By Mouth, Daily at bedtime, note dose change, # 180 capsule, Refills 4, Tot. Refills 4, Maintenance, 03/04/22 10:17:00 EDT, [id number] Partial fill upon patient request if the prescription... Start Date: 03/04/22 Stop Date: 05/28/23 Status: Ordered hydrOXYzine hydrochloride 25 mg oral tablet 1 TO 2 TABLETS, By Mouth, 3 times a day, PRN NEEDED FOR ANXIETY (VIAL), # 60 tablet, 11 Refills,Maintenance, 03/13/22 8:38:00 ED[facility], 175, cm, 01/06/22 10:34:00 EDT, Height, 78.3, kg, 12/26/21 19:05:00 EDT, Dry Weight Start Date: 03/13/22 Status: Ordered lactulose 10 gm/15 ml oral syrup See Instructions, TAKE 30ML BY MOUTH THREE TIMES DAILY NEEDED TO ACHEIVE 3-4 BOWL MOVEMENTS PER DAY, # 3,000 mL, 10 Refills, [facility], 30, TAKE 30ML BY MOUTH THREE TIMES DAILY NEEDED TO ACHEIVE 3-4 BOWL MOVEMENTS PER DAY, 174, cm, 02/12... Start Date: 07/02/21 Status: Ordered lidocaine 0.5% topical gel 1 application, Topically, 3 times a day, # 120 Gm, 0 Refills, Acute 12/30/22 17:23:00 EDT, 12/30/2216:23:00 EDT, Gel, [facility], Partial fill upon patient request if the prescription is fora schedule II opioid drug., 1 application Topically... Start Date: 12/30/21 Stop Date: 12/30/22 Status: Ordered Lidoderm 5% film 1 patch, Topically, Daily, remove patches after 12 hours NSAIDS contraindicated High dose tylenol contraindicated, # 30 patch, 5 Refills, Maintenance, 12/26/21 9:33:00 EDT, [facility], Partial fill upon patient request if the prescription i... Start Date: 12/26/21 Status: Ordered magnesium oxide 400 mg oral tablet 1 tablet, By Mouth, 2 times a day, # 60 tablet, 11 Refills, Maintenance, 03/13/22 8:37:00 EDT, [facility], 175, cm, 01/06/22 10:34:00 EDT, Height, 78.3, kg, 12/26/21 19:05:00 EDT, Dry Weight Start Date: 03/13/22 Status: Ordered Melatonin 3 mg oral tablet 1 tablet, By Mouth, Daily at bedtime, PRN NEEDED FOR INSOMNIA (PACKAGE IN TRAY), # 60 tablet, 5 Refills, Maintenance, 06/02/21 16:17:00 EST, [facility], 28, 1 tablet By Mouth [...] tablet, 1 Refills, Maintenance, 03/13/22 12:37:00 EDT, [id number], 175, cm, 01/06/22 10:34:00 EDT, Height, 78.3, kg, 12/26/21 19:05:00 EDT, Dry Weight Start Date: 03/13/22 Status: Ordered pyridoxine 50 mg oral tablet 50 mg, 1, tablet, By Mouth, Daily, for 90 days, # 90 tablet, Refills 4, Tot. Refills 4, Acute 01/15/23 11:42:00 EDT, 10/22/21 11:42:00 EDT, Route to Pharmacy Electronically, [facility], Partial fill upon patient request if [...] 0 Refills, Maintenance, 03/12/22 17:21:00 EDT, Tablet, [facility]/pharmacy #[id number], Partial fill upon patient request if the prescription is for a schedule II opioid drug., 175, cm,... Start Date: 03/12/22 Status: Ordered Tab-A-Jesse oral tablet 1 tablet, By Mouth, Daily, # 90 tablet, 9 Refills, [facility], 28, TAKE 1 TABLET BY [...] to Pharmacy Electronically, [facility], 175,cm, 01/06/22 10:34:00 EDT, Height, 78.3, kg, ... Start Date: 01/30/22 Status: Ordered traZODone 50 mg oral tablet See Instructions, TAKE 2-3 TABLETS BY MOUTH AT BEDTIME (ONE DOSE IN VIAL), # 90 tablet, Refills 5, Tot. Refills 5, Maintenance, 12/26/21 9:21:00 EDT, Instructions Replace Required Details, Route to Pharmacy Electronically, [facility], 170, cm,... Start Date: 12/26/21 Status: Ordered Vitamin B1 100 mg oral tablet 1, tablet, By Mouth, Daily, # 90 tablet, Refills 3, Maintenance, 03/13/22 8:37:00 EDT, Route to Pharmacy Electronically, [facility], 175, cm, 01/06/22 10:34:00 EDT, Height, 78.3, kg, 12/26/2218:05:00 EDT, Dry Weight Start Date: 03/13/22 Status: Ordered Xifaxan 550 mg oral tablet 1 tablet, By Mouth, 2 times a day, # 60 tablet, 2 Refills, [facility], 175, cm, 01/06/22 10:34:00 EDT, Height, [...] Personnel Name: Jany Baig DO Address: Address: [address] [place] [address] Adult & Pediatric Medicine [place], [place] [address]
--- OUTSIDE RECORDS SUMMARY | 2023-12-15 20:50 | XMS_ITS | Continuity of Care Document ---
Author Organization [facility] Address [address] [place] [address]- Care Team Providers Care Systems Programmer Name Role Phone Jany Baig DO Primary Care Physician Encounter [facility] [place] Date(s): 03/26/22 - 04/25/22 [facility] [address] [place] [address]- Allergies, Adverse Reactions, Alerts Substance Reaction Severity [...] Give n 1Result Comment: [facility]: [id number] 2Result Comment: [04/29/2017] [id number] 3Admin Note: FLUARIX 4Admin Note: 3 RDINJ 5Admin Note: #2 Medications acetaminophen 500 mg oral tablet 1 tablet, By Mouth, 4 times a day, PRN NEEDED FOR PAIN, MAX 4, PER DAY (VIAL., # 50 tablet, 11 Refills, Maintenance, 03/13/22 8:37:00 EDT, [facility], 175, cm, 01/06/22 10:34:00 EDT, Height, 78.3, kg, 12/26/21 19:05:00 EDT, Dry Weight Start Date: 03/13/22 Status: Ordered amLODIPine 5 mg oral tablet 5 mg, 1, tablet, By Mouth, Daily, # 30 tablet, Refills 5, Tot. Refills 5, Maintenance, 10/21/21 10:15:00 EDT, Route to Pharmacy Electronically, [facility], Partial fill upon patient request if the prescription is for a schedule II opioid drug.... Start Date: 10/21/21 Status: Ordered Co Q-10 100 mg oral capsule 1 capsule, By Mouth, 4 times a day, # 120 capsule, 5 Refills, Maintenance, 04/09/22 15:55:00 EDT, [facility], 175, cm, 04/09/22 15:34:00 EDT, [...] Gm, 5 Refills, Maintenance, 02/18/22 10:02:00 EDT, [facility], 30, USE 1 SPRAY(S) INTO EACH NOSTRIL TWICE A DAY, 175, cm, 01/06/22 10:34:00 EDT, Height, 78.3, kg, 12/26/21 19... Start Date: 02/18/22 Status: Ordered folic acid 1 mg oral tablet 1 mg, 1, tablet, By Mouth, Daily, # 90 tablet, Refills 4, Tot. Refills 4, Maintenance, 10/27/21 10:40:00 EDT, Route to Pharmacy Electronically, [facility], Partial fill upon patient request if the prescription is for a schedule II opioid drug.... Start Date: 10/27/21 Stop Date: 01/20/23 Status: Ordered furosemide 20 mg oral tablet 1, tablet, By Mouth, Daily, note dose change, # 30 tablet, Refills 2, Tot. Refills 2, Maintenance, 04/09/22 15:53:00 EDT, Route to Pharmacy Electronically, [facility], 175, cm, 04/09/22 15:34:00 EDT, Height, 78.3, kg, 12/26/21 19:05:00 EDT, Start Date: 04/09/22 Stop Date: 07/08/22 Status: Ordered gabapentin 300 mg oral capsule 300 mg, 1, capsule, By Mouth, Daily at bedtime, note dose change, # 90 capsule, Refills 4, Tot. Refills 4, Maintenance, 04/09/22 15:53:00 EDT, Route to Pharmacy Electronically, [facility], Partial fill upon patient request if the prescription... Start Date: 04/09/22 Stop Date: 07/03/23 Status: Ordered hydrOXYzine hydrochloride 25 mg oral tablet 1 TO 2 TABLETS, By Mouth, 3 times a day, PRN NEEDED FOR ANXIETY (VIAL), # 60 tablet, 11 Refills,Maintenance, 03/13/22 8:38:00 EDT, [facility], 175, cm, 01/06/22 10:34:00 EDT, Height, 78.3, kg, 12/26/21 19:05:00 EDT, Dry Weight Start Date: 03/13/22 Status: Ordered lactulose 10 gm/15 ml oral syrup See Instructions, TAKE 30ML BY MOUTH THREE TIMES DAILY NEEDED TO ACHEIVE 3-4 BOWL MOVEMENTS PER DAY, # 3,000 mL, 10 Refills, [facility], 30, TAKE 30ML BY MOUTH THREE TIMES DAILY NEEDED TO ACHEIVE 3-4 BOWL MOVEMENTS PER DAY, 174, cm, 02/12... Start Date: 07/02/21 Status: Ordered lidocaine 0.5% topical gel 1 application, Topically, 3 times a day, # 120 Gm, 0 Refills, Acute 12/30/22 17:23:00 EDT, 12/30/2216:23:00 EDT, Gel, [facility], Partial fill upon patient request if the prescription is fora schedule II opioid drug., 1 application Topically... Start Date: 12/30/21 Stop Date: 12/30/22 Status: Ordered Lidoderm 5% film 1 patch, Topically, Daily, remove patches after 12 hours NSAIDS contraindicated High dose tylenol contraindicated, # 30 patch, 5 Refills, Maintenance, 12/26/21 9:33:00 EDT, [facility], Partial fill upon patient request if the prescription i... Start Date: 12/26/21 Status: Ordered magnesium oxide 400 mg oral tablet 1 tablet, By Mouth, 2 times a day, # 60 tablet, 11 Refills, Maintenance, 03/13/22 8:37:00 EDT, [facility], 175, cm, 01/06/22 10:34:00 EDT, Height, [...] 04/09/22 16:00:00 EDT, Route to Pharmacy Electronically, [facility], Partial fill upon patient requestif the prescription is for a schedule II opioid remedios... Start Date: 04/09/22 Stop Date: 10/06/22 Status: Ordered Potassium Chloride (Eqv-K-Tab) 20 mEq oral tablet, extended release 2 tablet, By Mouth, Daily, # 60 tablet, 1 Refills, Maintenance, 03/13/22 12:37:00 EDT, [id number], 175, cm, 01/06/22 10:34:00 EDT, Height, 78.3, kg, 12/26/21 19:05:00 EDT, Dry Weight Start Date: 03/13/22 Status: Ordered pyridoxine 50 mg oral tablet 50 mg, 1, tablet, By Mouth, Daily, for 90 days, # 90 tablet, Refills 4, Tot. Refills 4, Acute 01/15/23 11:42:00 EDT, 10/22/21 11:42:00 EDT, Route to Pharmacy Electronically, [facility], Partial fill upon patient [...] 0 Refills, Maintenance, 03/12/22 17:21:00 EDT, Tablet, [facility]/pharmacy #[id number], Partial fill upon patient request if the prescription is for a schedule II opioid drug., 175, cm,... Start Date: 03/12/22 Status: Ordered Tab-A-Jesse oral tablet 1 tablet, By Mouth, Daily, # 90 tablet, 9 Refills, [facility], 28, TAKE 1 TABLET [...] to Pharmacy Electronically, [facility], 175,cm, 01/06/22 10:34:00 EDT, Height, 78.3, kg, 12/26/... Start Date: 01/30/22 Status: Ordered traZODone 50 mg oral tablet See Instructions, TAKE 2-3 TABLETS BY MOUTH AT BEDTIME (ONE DOSE IN VIAL), # 90 tablet, Refills 5, Tot. Refills 5, Maintenance, 12/26/21 9:21:00 EDT, Instructions Replace Required Details, Route to Pharmacy Electronically, [facility], 170, cm,... Start Date: 12/26/21 Status: Ordered Vitamin B1 100 mg oral tablet 1, tablet, By Mouth, Daily, # 90 tablet, Refills 3, Maintenance, 03/13/22 8:37:00 EDT, Route to Pharmacy Electronically, [facility], 175, cm, 01/06/22 10:34:00 EDT, Height, 78.3, kg, 12/26/2218:05:00 EDT, Dry Weight Start Date: 03/13/22 Status: Ordered Xifaxan 550 mg oral tablet 1 tablet, By Mouth, 2 times a day, # 60 tablet, 1 Refills, Maintenance, 04/10/22 16:49:00 EDT, [facility], 175, cm, 04/09/22 15:34:00 EDT, Height, [...] Team Personnel Name: Alexandra Colmenares RN Position: [facility] ED RN W/OE and Tasks Member Role: Primary Care Nurse Name: Garima Manzano RN Position: [facility] RN Member Role: Primary Care Nurse Name: Malgorzata Marinelli RN Position: [facility] RN Member Role: Primary Care Nurse Name: Jean Nugent RN Position: [facility] RN Member Role: Primary Care Nurse Name: Mary Suazo RN Position: [facility] RN Member Role: Primary Care Nurse Name: Yenny Bernstein Position: [facility] RN Member Role: Primary Care Nurse Name: Jany Baig DO Position: [facility] Primary Care Physician Member Role: PCP Address: Address: [address] [place] [address] [facility] [address] Name: Neida Ballard RN Position: [facility] RN Member Role: Primary Care Nurse Name: Kaye Payne RN Position: [facility] RN Member Role: Primary Care Nurse Name: Torrie Hernandez RN Position: [facility] OB RN Member Role: Primary Care Nurse Name: Aislinn Mckee RN Position: [facility] RN Member Role: Primary Care Nurse Name: Ashley Mcelroy Position: [facility] RN Member Role: Primary Care Nurse Name: Cody Garcia Position: [facility] Associate Professional Member Role: Lifetime Consulting Provider Address: Address: [address] [place] [address] Name: Ge Covarrubias RN Position: [facility] RN Member Role: Primary Care Nurse Name: Orin Elmore RN Position: [facility] ED RN W/OE and Tasks Member Role: Primary Care Nurse Name: Allegra Liu RN Position: [facility] PCO RN Member Role: Primary Care Nurse Name: Shayan Pandya MD Position: [facility] Renal MD Member Role: Lifetime Consulting Physician Address: Address: [address] [place] [address] [facility] [address] Name: Darlene Rodrigez RN Position: [facility] RN Member Role: Primary Care Nurse Name: Kwan Mills RN Position: [facility] RN Member Role: Primary Care Nurse Name: Kim Rendon RN Position: [facility] RN Member Role: Primary Care Nurse Name: Monica Rowell RN Position: S RN Member Role: Primary Care Nurse Name: Estela Ramos Position: S RN Member Role: Primary Care Nurse Care Team Related Persons Name: CAWUMARLEN Address: [place] [address] Name: MARLEN CABEZAS Address: [place] [address] Name: NICK CABEZAS Name: GEMA CABEZAS Address: [place] [address]
--- OUTSIDE RECORDS SUMMARY | 2023-12-15 20:51 | XMS_ITS | Continuity of Care Document ---
Author Organization [facility] Address [address] [place] [address]- Care Team Providers Care Lock Master Name Role Phone Jany Baig DO Primary Care Physician Encounter [facility] Date(s): 08/29/20 - 09/05/20 [facility] [address] [place] [address]- Attending Physician: Jany Baig DO Allergies, Adverse [...] 3 02/28/13 Gi cleopatra pneumococcal 23-valent vaccine 10/3/15 Given hepatitis B adult vaccine 4 02/28/13 Given Pneumococcal Vaccine (oldterm) 08/02/12 Given Tet/diphth/pertussis, acel (oldterm) 08/02/12 Give n 1Admin Note: #2 2Result Comment: [04/29/2017] [id number] 3Admin Note: FLUARIX 4Admin Note: 3 RDINJ Medications baclofen 10 mg oral tablet 10 mg, 1, tablet, By Mouth, 3 times a day, pt needs to schedule appt, # 90 tablet, Refills 0, Tot. Refills 0, Maintenance, 08/29/20 13:57:00 EDT, Route to Pharmacy Electronically, [facility],175, cm, 04/02/20 0:35:00 EDT, Height, 100, kg, 10/... Start Date: 08/29/20 Stop Date: 09/28/20 Status: Ordered chantix 1mg tablet 1 tablet, By Mouth, 2 times a day, for 12 week(s), # 56 tablet, 0 Refills, Acute, 09/05/20 17:32:00EDT, [facility], 178, cm, 08/31/20 11:25:00 EDT, Height, [...] Maintenance, 11/02/19 9:02:00 EDT, Suspension, [facility] #[id number], 175, cm, 08/24/19 14:14:00 EDT, Height, 81.2, kg, 02/04/19 1:40:00 EDT, Dry Weight Start Date: 11/02/19 Status: Ordered fluticasone 50 mcg/inh nasal spray See Instructions, SPRAY 1 SPRAY INTO EACH NOSTRIL TWICE A DAY, # 16 Gm, 5 Refills, 07/09/20 11:38:00 EST, [facility], 30, SPRAY 1 SPRAY INTO EACH NOSTRIL TWICE A DAY, 175, cm, 04/02/20 0:35:00 EDT, Height, 100, kg, 04/02/20 0:35:00 EDT, Dry We... Start Date: 07/09/20 Status: Ordered gabapentin 600 mg oral tablet 1 tablet, By Mouth, 4 times a day, # 120 tablet, 0 Refills, Maintenance, 09/05/20 17:32:00 EDT, [facility], 178, cm, 08/31/20 11:25:00 EDT, Height, 84.9, kg, 08/31/20 1:07:00 EDT, Dry Weight Start Date: 09/05/20 Status: Ordered hydrOXYzine hydrochloride 25 mg oral tablet 1 TO 2 TABLETS, By Mouth, 3 times a day, PRN NEEDED FOR ANXIETY (VIAL), # 60 tablet, 0 Refills, Acute, 09/05/20 17:32:00 EDT, [facility], 178, cm, 08/31/20 [...] 11/25/20 16:37:00 EDT, 12/01/19 16:37:00 EDT, Syrup, [facility], re sent from 10/04/17, 30... Start Date: 12/01/19 Stop Date: 11/25/20 Status: Ordered melatonin 3 mg oral tablet 1 tablet = 3 mg, By Mouth, Daily at bedtime, PRN for insomnia, # 60 tablet, 4 Refills, Maintenance,07/18/20 17:30:00 EST, Tablet, [facility], 175, cm, 04/02/20 0:35:00 EDT, Height, 100, kg, 04/02/20 0:35:00 EDT, Dry Weight Start Date: 07/18/20 Status: Ordered mupirocin 2% topical ointment See Instructions, APPLY TOPICALLY THREE TIMES DAILY (APPLY A THIN FILM), # 22 Gm, 0 Refills, Maintenance, 04/16/20 14:45:00 EST, [facility]/pharmacy #[id number], 8, APPLY TOPICALLY THREE [...] [facility], 175, cm, 08/24/19 14:14:00 EDT,Height, [...] DAY, # 30 tablet, 10 Refills, Maintenance, [facility], 28, TAKE 1 TABLET BY [...] opioid drug. Start Date: 08/30/20 Status: Ordered traZODone 50 mg oral tablet [...]
--- OUTSIDE RECORDS SUMMARY | 2023-12-15 20:51 | XMS_ITS | Continuity of Care Document ---
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 Name Role Phone Jany Baig DO Primary Care Physician Encounter [facility] Date(s): 10/15/23 - 10/16/[address] [address]- Discharge Disposition: A-D/C Home Attending Physician: Petros Hayes MD Admitting Physician: Petros Hayes MD Referring Physician: Not on Staff, Referring [...] 1Result Comment: [facility]: [id number] 2Result Comment: [04/29/2017] [id number] 3Admin Note: FLUARIX 4Admin Note: 3 RDINJ 5Admin Note: #2 Medications acamprosate 333 mg oral delayed release tablet 2 tablet = 666 mg, By Mouth, 3 times a day, # 180 tablet, 1 Refills, Maintenance, 07/28/23 11:04:00EST, EC Tablet, [facility], Partial fill upon patient request if [...] tablet, 2 Refills, Maintenance, 07/28/23 11:06:00 EST, [facility], 175, cm, 07/28/23 9:11:00 EST, Height, 61.3, kg, 07/12/23 23:27:00 EST, Dry Weight Start Date: 07/28/23 Status: Ordered amLODIPine 5 mg oral tablet 1 tablet, By Mouth, Daily, ^1R1., # 30 tablet, 2 Refills, Maintenance, 06/02/23 8:00:00 EST, [facility], 175, cm, 03/22/23 6:50:00 EDT, [...] 07/28/23 11:10:00 EST, Route to Pharmacy Electronically, [facility], Partial fill upon patient request if [...] Gm, 12 Refills, Maintenance, 07/28/23 11:06:00 EST, [facility], 28, APPLY TOPICALLY TO AFFECTED AREA(S) [...] Gm, 1 Refills, Maintenance, 07/28/23 12:07:00 EST, [facility], 30, USE 1 SPRAY(S) INTO EACH [...] 07/28/23 12:08:00 EST, Route to Pharmacy Electronically, [facility], 175, cm, 07/28/23 9:11:00 EST, Height, 61.3, kg, 07/12/23 23:27:00 EST, Dry Weight Start Date: 07/28/23 Status: Ordered furosemide 20 mg oral tablet 20 mg, 1, tablet, By Mouth, Every other day, # 30 tablet, Refills 1, Tot. Refills 1, Maintenance, 07/28/23 12:08:00 EST, Route to Pharmacy Electronically, [facility], Partial fill upon patient request if the prescription is for a schedule II... Start Date: 07/28/23 Status: Ordered gabapentin 300 mg oral capsule 300 mg, 1, capsule, By Mouth, Daily at bedtime, note dose/frequency change, # 30 capsule, Refills 1, Tot. Refills 1, Maintenance, 07/28/23 12:09:00 EST, Route to Pharmacy Electronically, [facility], 175, cm, 07/28/23 9:11:00 EST, Height, [...] tablet, 3 Refills, Maintenance, 07/28/23 12:10:00 EST, [facility], 175, cm, 07/28/23 9:11:00 EST, Height, 61.3, kg,07/12/23 23:27:00 EST, Dry Weight Start Date: 07/28/23 Status: Ordered lactulose 10 gm/15 ml oral syrup 30 mL = 20 Gm, By Mouth, 3 times a day, for 30 days, # 2,700 mL, 2 Refills, Acute 10/26/23 12:13:00EDT, 07/28/23 12:13:00 EST, Syrup, [facility], Partial fill upon patient request if [...] 60 tablet, 11 Refills, Maintenance,07/28/23 12:09:00 EST, [facility], 175, cm, 07/28/23 9:11:00 EST, Height, [...] tablet, 5 Refills, Maintenance, 07/28/23 12:09:00 EST, [facility], 60, 1 tablet By Mouth Daily [...] 09/29/24 19:11:00 EDT, 09/30/23 19:11:00 EDT, Gum, [facility], Partial fill upon patient request if [...] 07/28/23 12:11:00 EST, Route to Pharmacy Electronically, [facility], 175, cm, 07/28/23 9:11:00EST, Height, 61.3, [...] 07/28/23 12:12:00 EST, Route to Pharmacy Electronically, [facility], 175, cm, 07/28/23 9:11:00 EST, Height, 61.3, kg, 07/12/23 23:27:00 EST, Dry Weight Start Date: 07/28/23 Status: Ordered spironolactone 25 mg oral tablet 1, tablet, By Mouth, Daily, ^1R2., # 30 tablet, Refills 5, Tot. Refills 5, Maintenance, 04/14/23 12:41:00 EDT, Route to Pharmacy Electronically, [facility], 175, cm, 03/22/23 6:50:00 EDT, Height, 77.5, kg, 03/20/23 11:30:00 EDT, Dry Weight Start Date: 04/14/23 Status: Ordered Tab-A-Ejsse oral tablet 1 tablet, By Mouth, Daily, R1., # 30 tablet, 5 Refills, Maintenance, 05/06/23 19:16:00 EST, [facility], 30, TAKE [...] 02/26/23 10:11:00 EDT, Route to Pharmacy Electronically, [facility], 175, cm, 12/03/22 11:50:00 EDT, Height,84, kg, 02/12/23 11:30:00 EDT, Dry Weight Start Date: 02/26/23 Status: Ordered traZODone 50 mg oral tablet 50 mg, 1, tablet, By Mouth, Daily at bedtime, ^2R4., # 60 tablet, Refills 5, Tot. Refills 5, Maintenance, 07/28/23 12:12:00 EST, Route to Pharmacy Electronically, [facility], 175, cm, 07/28/23 9:11:00 EST, Height, [...] 02/09/23 23:18:00 EDT, Route to Pharmacy Electronically, [facility], 175, cm, 12/03/22 11:50:00 EDT, Height, 88.9, kg, 10/21/22 20:41:00 EDT, Dry Weight Start Date: 02/09/23 Status: Ordered Vitamin B1 100 mg oral tablet 1, tablet, By Mouth, Daily, # 90 tablet, Refills 3, Tot. Refills 3, Maintenance, 07/28/23 12:12:00 EST, Route to Pharmacy Electronically, [facility], 175, cm, 07/28/23 9:11:00 EST, Height, 61.3, kg, 07/12/23 23:27:00 EST, Dry Weight Start Date: 07/28/23 Status: Ordered Vitamin B6 50 mg oral tablet 1, tablet, By Mouth, Daily, R1., # 90 tablet, Refills 4, Maintenance, 11/16/22 13:39:00 EDT, Route to Pharmacy Electronically, [facility], 175, cm, 11/13/22 10:42:00 EDT, Height, 88.9, kg, 10/21/22 20:41:00 EDT, Dry Weight Start Date: 11/16/22 Status: Ordered Vitamin B6 50 mg oral tablet 1, tablet, By Mouth, Daily, R1., # 90 tablet, Refills 4, Tot. Refills 4, Maintenance, 07/28/23 12:11:00 EST, Route to Pharmacy Electronically, [facility], 175, cm, 07/28/23 9:11:00 EST, Height, [...] each, 5 Refills, Maintenance, 09/30/23 19:11:00 EDT, [facility], 175, cm, 09/24/23 11:09:00 EDT, Height, [...] Exam Date Time Procedure Performing Provider Status 10/15/23 8:[address] Cervical Spine W/O Contrast Eduarda Reyes; Tanna (Verified) Notes: (CT Cervical Spine W/O Contrast) Reason For Exam: Neck trauma, dangerous injury mechanism;Other: RESULT: CT Cervical Spine W/O Contrast CT Head/Brain W/O Contrast, CT Cervical Spine W/O Contrast INDICATION: Head pain; Clinical Question(s): Hemorrhage TECHNIQUE: Noncontrast head CT using axial technique was reconstructed in axial and coronal planes.Noncontrast spiral CT through the cervical spine was formatted in 3 planes. Automatic tube modulation was used for the cervical spine and iterative dose reconstruction was used for both the head and cervical spine to optimize scan parameters and image quality. CTDIvol Body: 15.40 mGy, DLP Body: 422 mGy*cm. CTDIvol Head: 39.80 mGy, DLP Head: 672 mGy*cm. COMPARISON: Multiple prior CTs, most recently 09/11/2023. FINDINGS: Lumite Injector View Findings, Lines and Tubes: None. BRAIN [...] No fractures or suspicious bony lesions. Mild mucosal thickening of the ethmoid and sphenoid sinuses. All other paranasal sinuses and mastoid air cells are clear. Visualized orbits and globes are intact. Mild right scalp hematoma adjacent to the temporal lobe. CERVICAL SPINE: No fracture. No acute osseous abnormalities. Normal alignment. No locked or perched facet. Moderate multilevel degenerative disc space narrowingand end plate irregularity. OTHER BONES: No acute abnormality. CERVICAL SOFT TISSUES AND LUNG APICES: Normal soft tissues. Visualized lung apices are clear. Normal thyroid. IMPRESSION: Mild right scalp hematoma adjacent to the temporal lobe. I have personally reviewed the images and I agree with this report. WSN: [id number] Ordering Physician: Eder Wright Dictated By: Sayra Canela MD Dictated Date/Time: 10/15/23 9:56 pm Reviewed By: Camilo Estes MD Signed By: Camilo Estes MD Signed Date/Time: 10/15/23 10:01 pm Transcribed By: MIRNA Transcribed Date/Time: 10/15/23 9:47 pm * Exam Date Time Procedure Performing Provider Status 10/15/23 8:[address] Head/Brain W/O Contrast Bakari Reyes; Auth (Verified) Notes: (CT Head/Brain W/O Contrast) Reason For Exam: Trauma RESULT: CT Head/Brain W/O Contrast CT Head/Brain W/O Contrast, CT Cervical Spine W/O Contrast INDICATION: Head pain; Clinical Question(s): Hemorrhage TECHNIQUE: Noncontrast head CT using axial technique was reconstructed in axial and coronal planes.Noncontrast spiral CT through the cervical spine was formatted in 3 planes. Automatic tube modulation was used for the cervical spine and iterative dose reconstruction was used for both the head and cervical spine to optimize scan parameters and image quality. CTDIvol Body: 15.40 mGy, DLP Body: 422 mGy*cm. CTDIvol Head: 39.80 mGy, DLP Head: 672 mGy*cm. COMPARISON: Multiple prior CTs, most recently 09/11/2023. FINDINGS: Lumite Injector View Findings, Lines and Tubes: None. BRAIN [...] No fractures or suspicious bony lesions. Mild mucosal thickening of the ethmoid and sphenoid sinuses. All other paranasal sinuses and mastoid air cells are clear. Visualized orbits and globes are intact. Mild right scalp hematoma adjacent to the temporal lobe. CERVICAL SPINE: No fracture. No acute osseous abnormalities. Normal alignment. No locked or perched facet. Moderate multilevel degenerative disc space narrowingand end plate irregularity. OTHER BONES: No acute abnormality. CERVICAL SOFT TISSUES AND LUNG APICES: Normal soft tissues. Visualized lung apices are clear. Normal thyroid. IMPRESSION: Mild right scalp hematoma adjacent to the temporal lobe. I have personally reviewed the images and I agree with this report. WSN: [id number] Ordering Physician: Eder Wright Dictated By: Sayra Canela MD Dictated Date/Time: 10/15/23 9:56 pm Reviewed By: Camilo Estes MD Signed By: Camilo Estes MD Signed Date/Time: 10/15/23 10:01 pm Transcribed By: MIRNA Transcribed Date/Time: 10/15/23 9:47 pm Vital Signs Most recent to oldest [Reference Range]: 1 2 3 Height 185 cm (10/15/23 7:07 PM) Weight 90 kg (10/15/23 7:07 PM) Oxygen Saturation [94-100 %] 98 % (10/16/23 4:30 AM) 98 % (10/16/23 12:00 AM) 98 % (10/15/23 10:00 PM) Pulse Rate [55-90 bpm] 76 bpm (10/16/23 4:30 AM) 70 bpm (10/16/23 12:00 AM) 72 bpm (10/15/23 10:00 PM) Blood Pressure [90-138/55-84 mm Hg] 129/71mm Hg (10/16/23 4:30 AM) 122/73mm Hg (10/16/23 12:00 AM) 132/69mm Hg (10/15/23 10:00 PM) Respiratory Rate [16-30 br/min] 18 br/min (10/16/23 4:30 AM) 18 br/min (10/16/23 12:00 AM) 20 br/min (10/15/23 10:00 PM) Temperature [96.8-100.4 DegF] 98.2 DegF (10/16/23 4:30 AM) 98.1 DegF (10/16/23 12:00 AM) 97.9 DegF (10/15/23 10:00 PM) Mode of Delivery (Oxygen) Room air (10/16/23 4:30 AM) Room air (10/16/23 12:00 AM) Room air (10/15/23 10:00 PM) Temperature Route Oral (10/16/23 4:30 AM) Oral (10/16/23 12:00 AM) Oral (10/15/23 10:00 PM) Dry Weight 90 kg (10/15/23 7:07 PM) Social History Social History Type Response Smoking Status 10 or more cigarette s (1/2 pack or more)/day in last 30 days entered on: 02/04/19 Sex Note * Kacey Fernandes: PERFORM Event Display: Patient Education Leaflets Authored Date: [id number] [facility] [place] Sub[place] Abuse Resources ?? 151 If you need Substance Abuse Resources: ?? [facility] [phone] ?? [facility] [phone] ?? [facility] [phone] ?? [facility] [phone] ?? [facility] [phone] ?? [facility] [place] [phone] ?? [facility] [place] [phone] ?? [facility] [phone] ?? [facility] [phone] ?? [facility] [phone] ?? [facility] [phone] ?? [facility] [phone] ?? [facility] [phone] ?? [facility] [phone] ?? [facility] [place] [phone] ?? [facility] (13-17 yo) [place] [phone] ?? [facility] (Adolescent) [place] [phone] ? Partial Hospitalization ??? Outpatient therapy for adults and families with substance abuse problems [address] [place] [address] ? Support Services ? [facility] - Outpatient therapy /support for recovery / transitional housing & shelters? [address] [place] [phone] ? [facility] - women's AA group/street outreach program/health access assistance? [facility] [phone] ? Alcoholic Anonymous - AA program to maintain sobriety/ [place]-support for families of alcoholics/[place]-support for children of same [phone] ? [facility] - recovery support services/sober social Opportunities [address] [place] [address] ? * Eder Wright MD: PERFORM Event Display: Patient Education Leaflets Authored Date: [id number] Alcohol Abuse ?? [id number] Alcohol Abuse Alcoholic drinks harm you when [...] you: ??? Duties at home or with child life assistant suffer because of drinking. ??? Duties [...] problems ??? Seizures These changes may be alf (permanent). Heart and blood vessels Alcohol can [...] and Substance Abuse Information Center (NASAIC) at www.addictioncareGME Medical Engineering.[employer] or 415-835-8383 ??? National [place] on Alcoholism and Drug Dependence (NCADD) at www.ncadd.org or 563-UYT-LBDQ (393-021-8032) ?? Call 911 Call 911 if any [...] shakiness ?? Last Reviewed Date: 2021 ?? [employer]. All rights reserved. This information is not intended as a substitute for professional medical care. Always follow your healthcare professional's instructions. ?? Patient Care team information Care Team Personnel Name: Shira Galindo RN Position: [facility] RN Member Role: Primary Care Nurse Name: Alexandra Colmenares RN Position: [facility] ED RN W/OE and Tasks Member Role: Primary Care Nurse Name: Garima Manzano RN Position: [facility] RN Member Role: Primary Care Nurse Name: Malgorzata Marinelli RN Position: [facility] RN Member Role: Primary Care Nurse Name: Joyce Roach RN Position: [facility] ED RN W/OE and Tasks Member Role: Primary Care Nurse Name: Lucina Peralta RN Position: [facility] RN Member Role: Primary Care Nurse Name: Maria Esther Craig LPN Position: [facility] RN Member Role: Primary Care Nurse Name: Kaye Comer RN Position: [facility] RN Member Role: Primary Care Nurse Name: Andres Pressley RN Position: [facility] RN Member Role: Primary Care Nurse Name: Jany Baig DO Position: [facility] Physician - Primary Care Member Role: PCP Address: Address: [address] [place] [address] Adult [facility] [address] Name: Mary Haines RN Position: [facility] RN Member Role: Primary Care Nurse Name: Garima Curry RN Position: [facility] RN Member Role: Primary Care Nurse Name: Malgorzata Austin Position: S RN Member Role: Primary Care Nurse Name: Ibeth Adams RN Position: [facility] RN Member Role: Primary Care Nurse Name: Torrie Hernandez RN Position: [facility] OB RN Member Role: Primary Care Nurse Name: Gretchen Knutson RN Position: [facility] SN RN Member Role: Primary Care Nurse Name: Aislinn Mckee RN Position: [facility] RN Member Role: Primary Care Nurse Name: Ashley Mcelroy Position: S RN Member Role: Primary Care Nurse Name: Ashok Kevin RN Position: [facility] RN Member Role: Primary Care Nurse Name: Cody Garcia Position: [facility] Associate Professional Member Role: [employer] Provider Address: Address: [address] [place] [address]- Name: Paige Nascimento RN Position: [facility] RN Member Role: Primary Care Nurse Name: Ge Covarrubias RN Position: [facility] RN Member Role: Primary Care Nurse Name: Orin Elmore RN Position: [facility] ED RN W/OE and Tasks Member Role: Primary Care Nurse Name: Allegra Liu RN Position: [facility] AMB Nurse Member Role: Primary Care Nurse Name: Shayan Pandya MD Position: [facility] Renal MD Member Role: [employer] Consulting Physician Address: Address: [address] [place] [address] [address] [facility], [place] [address]- Name: Kimberley Pittman RN Position: [facility] RN Member Role: Primary Care Nurse Name: Darlene Rodrigez RN Position: [facility] RN Member Role: Primary Care Nurse Name: Dixie Duke RN Position: [facility] RN Member Role: Primary Care Nurse Name: Kwan Mills RN Position: [facility] ED RN W/OE and Tasks Member Role: Primary Care Nurse Name: Ingrid Verdugo RN Position: [facility] RN Member Role: Primary Care Nurse Name: Monica Rowell RN Position: [facility] RN Member Role: Primary Care Nurse Name: Jimi Fitzpatrick RN Position: [facility] RN Member Role: Primary Care Nurse Care Team Related Persons Name: MARLEN CABEZAS Address: home [address], [place] Name: MARLEN CABEZAS Address: home [address], [place] Name: NICK CABEZAS Name: MOSES CABEZASRICK Address: home [address], [place] Name: ELTON CHENG Address: home [address] [place] [address]
--- OUTSIDE RECORDS SUMMARY | 2023-12-15 20:51 | XMS_ITS | Continuity of Care Document ---
Author Organization [facility] Address [address] [place] [address]- Care Team Providers Care Customer Account Coordinator Name Role Phone Jany Baig DO Primary Care Physician Encounter [facility] Date(s): 03/25/23 - 04/29/23 [facility] [address] [place], [place] [address] Attending Physician: Anna WILSON, Christine Allergies, Adverse [...] (oldterm) 08/02/12 Give n 1Result Comment: [facility]: [id number] 2Result Comment: [04/29/2017] [id number] 3Admin Note: FLUARIX 4Admin Note: 3 RDINJ 5Admin Note: #2 Medications acamprosate 333 mg oral delayed release tablet 1 tablet = 333 mg, By Mouth, 3 times a day, # 42 tablet, 4 Refills, Maintenance, 11/05/22 11:31:00 EDT, EC Tablet, [facility], Partial fill upon patient request if the prescription is for a schedule II opioid drug., 175, cm, 11/05/22 10:21:00... Start Date: 11/05/22 Stop Date: 01/14/23 Status: Ordered amLODIPine 5 mg oral tablet 1 tablet, By Mouth, Daily, ^1R1., # 30 tablet, 5 Refills, Maintenance, 12/22/22 7:20:00 EDT, [facility], 175, cm, 12/03/22 11:50:00 EDT, Height, 88.9, kg, 10/21/22 20:41:00 EDT, Dry Weight Start Date: 12/22/22 Status: Ordered baclofen 10 mg oral tablet See Instructions, TAKE ONE TABLET BY MOUTH THREE TIMES A DAY ^1R1,1R2,1R4, # 90 tablet, Refills 5, Tot. Refills 5, Maintenance, 01/14/23 17:55:00 EDT, Instructions Replace Required Details, Route to Pharmacy Electronically, [facility], 175, cm... Start Date: 01/14/23 Status: Ordered calcium (as carbonate)-vitamin D 500 mg-400 intl units oral tablet 1 tablet, By Mouth, Daily, ^1R1., # 28 tablet, 0 Refills, Maintenance, 12/01/22 16:12:00 EDT, [facility], 28, 1 tablet By Mouth Daily,Instr:^1R1., [...] capsule, 6 Refills, Maintenance, 12/03/22 12:13:00 EDT, [facility], 175, cm, 12/03/22 11:50:00 EDT, Height, [...] Gm, 12 Refills, Maintenance, 03/24/23 10:52:00 EDT, [facility], 28, APPLY TOPICALLY TO AFFECTED [...] 05/03/23 12:01:00 EST, 03/22/23 12:01:00 EDT, Tablet, [facility]/pharmacy #[id number], Partial fill upon patient request if [...] 03/20/23 16:22:00 EDT, Route to Pharmacy Electronically, [facility], 175, cm, 03/20/23 15:31:00 EDT, Height, 77.5, kg, 03/20/23 11:30:00 EDT, Dry Weight Start Date: 03/20/23 Status: Ordered furosemide 20 mg oral tablet 20 mg, 1, tablet, By Mouth, Every other day, # 30 tablet, Refills 3, Tot. Refills 3, Maintenance, 01/28/23 12:31:00 EDT, Route to Pharmacy Electronically, [facility], Partial fill upon patient request if the prescription is for a schedule II o... Start Date: 01/28/23 Status: Ordered gabapentin 300 mg oral capsule 300 mg, 1, capsule, By Mouth, Daily at bedtime, note dose/frequency change, # 90 capsule, Refills 4, Tot. Refills 4, Maintenance, 11/05/22 11:05:00 EDT, Route to Pharmacy Electronically, [facility], 175, cm, 11/05/22 10:21:00 EDT, Height, 88.9... Start Date: 11/05/22 Stop Date: 01/29/24 Status: Ordered hydrOXYzine hydrochloride 10 mg oral tablet 2 tablet, By Mouth, 2 times a day, PRN NEEDED FOR ANXIETY (VIAL), # 30 tablet, 3 Refills, Maintenance, 04/16/23 16:41:00 EDT, [facility], 175, cm, 03/22/23 6:50:00 EDT, Height, 77.5, kg, 03/20/23 11:30:00 EDT, Dry Weight Start Date: 04/16/23 Status: Ordered lactulose 10 gm/15 ml oral syrup 15 mL, By Mouth, 2 times a day, # 120 mL, 6 Refills, Maintenance, 02/26/23 10:11:00 EDT, [facility], 4, TAKE 15ML BY MOUTH TWO TIMES A DAY, 175, cm, 12/03/22 11:50:00 EDT, Height, 84, kg, 02/12/23 11:30:00 EDT, Dry Weight Start Date: 02/26/23 Status: Ordered magnesium oxide 400 mg oral tablet See Instructions, TAKE 1 TABLET BY MOUTH TWICE A DAY^1R1,1R4, # 60 tablet, 11 Refills, Maintenance,01/28/23 12:31:00 EDT, [facility], 175, cm, 12/03/22 11:50:00 EDT, Height, 88.9, kg, 10/21/22 20:41:00 EDT, Dry Weight Start Date: 01/28/23 Status: Ordered Melatonin 3 mg oral tablet 1 tablet, By Mouth, Daily at bedtime, PRN NEEDED FOR INSOMNIA (PACKAGE IN TRAY)^1R4, # 60 tablet, 5 Refills, Maintenance, 04/16/23 16:41:00 EDT, [facility], 60, TAKE 1 TABLET BY [...] 02/26/23 10:11:00 EDT, Route to Pharmacy Electronically, [facility], 175, cm, 12/03/22 11:50:00 EDT, [...] 05/03/23 12:02:00 EST, 03/22/23 12:02:00 EDT, Capsule, [facility]/pharmacy #[id number], Partial fill upon patient request if the prescription is for a schedule II opioid drug., 175, c... Start Date: 03/22/23 Stop Date: 05/03/23 Status: Ordered spironolactone 25 mg oral tablet 1, tablet, By Mouth, Daily, ^1R2., # 30 tablet, Refills 5, Tot. Refills 5, Maintenance, 04/14/23 12:41:00 EDT, Route to Pharmacy Electronically, [facility], 175, cm, 03/22/23 6:50:00 EDT, Height, 77.5, kg, 03/20/23 11:30:00 EDT, Dry Weight Start Date: 04/14/23 Status: Ordered Tab-A-Jesse oral tablet 1 tablet, By Mouth, Daily, # 90 tablet, 1 Refills, 12/01/22 12:59:00 EDT, [facility], 28, 1tablet By Mouth Daily, 175, cm, 11/13/22 10:42:00 EDT, Height, 88.9, kg, 10/21/22 20:41:00 EDT, DryWeight Start Date: 12/01/22 Status: Ordered traZODone 50 mg oral tablet 2, tablet, By Mouth, Daily at bedtime, ^2R4., # 60 tablet, Refills 5, Maintenance, 02/26/23 10:11:00 EDT, [facility] to Pharm[facility], [facility], 175, cm, 12/03/22 11:50:00 EDT, Height,84, [...] 02/09/23 23:18:00 EDT, Route to Pharmacy Electronically, [facility], 175, cm, 12/03/22 11:50:00 EDT, Height, 88.9, kg, 10/21/22 20:41:00 EDT, Dry Weight Start Date: 02/09/23 Status: Ordered Vitamin B6 50 mg oral tablet 1, tablet, By Mouth, Daily, R1., # 90 tablet, Refills 4, Maintenance, 11/16/22 13:39:00 EDT, Route to Pharmacy Electronically, [facility], 175, cm, 11/13/22 10:42:00 EDT, Height, [...] tablet, 3 Refills, Maintenance, 02/26/23 10:11:00 EDT, [facility], 175, cm, 12/03/22 11:50:00 EDT, Height, [...] Team Personnel Name: Alexandra Colmenares RN Position: [facility] ED RN W/OE and Tasks Member Role: Primary Care Nurse Name: Garima Manzano RN Position: [facility] RN Member Role: Primary Care Nurse Name: Malgorzata Marinelli RN Position: [facility] RN Member Role: Primary Care Nurse Name: Joyce Roach RN Position: [facility] ED RN W/OE and Tasks Member Role: Primary Care Nurse Name: Mary Suazo RN Position: [facility] RN Member Role: Primary Care Nurse Name: Andres Pressley RN Position: [facility] ED RN W/OE and Tasks Member Role: Primary Care Nurse Name: Jany Baig DO Position: [facility] Physician - Primary Care Member Role: PCP Address: Address: [address] [place] [address] Adult [place] [address]- Name: Kaye Payne RN Position: [facility] RN Member Role: Primary Care Nurse Name: Garima Hutchinson Position: [facility] RN Member Role: Primary Care Nurse Name: Malgorzata Austin Position: [facility] RN Member Role: Primary Care Nurse Name: Ibeth Adams RN Position: [facility] RN Member Role: Primary Care Nurse Name: Torrie Hernandez RN Position: [facility] OB RN Member Role: Primary Care Nurse Name: Gretchen Knutson RN Position: [facility] SN RN Member Role: Primary Care Nurse Name: Aislinn Mckee RN Position: [facility] RN Member Role: Primary Care Nurse Name: Ashley Mcelroy Position: S RN Member Role: Primary Care Nurse Name: Ashok Kevin RN Position: S RN Member Role: Primary Care Nurse Name: Cody Garcia Position: [facility] Associate Professional Member Role: Lifetime Consulting Provider Address: Address: [address] [place] [address]- Name: Paige Nascimento RN Position: [facility] RN Member Role: Primary Care Nurse Name: Ge Covarrubias RN Position: [facility] RN Member Role: Primary Care Nurse Name: Orin Elmore RN Position: [facility] ED RN W/OE and Tasks Member Role: Primary Care Nurse Name: Allegra Liu RN Position: [facility] SN RN Member Role: Primary Care Nurse Name: Shayan Pandya MD Position: [facility] Renal MD Member Role: Lifetime Consulting Physician Address: Address: [address] [place] [address] [address] [facility] [place] [address]- Name: Darlene Rodrigez RN Position: [facility] RN Member Role: Primary Care Nurse Name: Kwan Mills RN Position: [facility] RN Member Role: Primary Care Nurse Name: Dolores Can RN Position: [facility] RN Member Role: Primary Care Nurse Name: Ingrid Verdugo RN Position: [facility] RN Member Role: Primary Care Nurse Name: Monica Rowell RN Position: [facility] RN Member Role: Primary Care Nurse Name: Jimi Fitzpatrick RN Position: [facility] RN Member Role: Primary Care Nurse Care Team Related Persons Name: MARLEN CABEZAS Address: home [address] [place], [place] Name: MARLEN CABEZAS Address: [address] [place], [place] Name: CAWU NICK Name: RAULITO GEMA Address: [address] [place] [address]
--- OUTSIDE RECORDS SUMMARY | 2023-12-15 20:51 | XMS_ITS | Continuity of Care Document ---
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 Name Role Phone Jany Baig DO Primary Care Physician Encounter [facility] Date(s): 02/12/23 - 02/12/[address] [address]- Encounter Diagnosis Toe pain, left(Final) - 02/12/23 Toenail deformity(Final) - 02/12/23 Toenail torn away(Final) - 02/12/23 Discharge Disposition: A-D/C Home Attending Physician: Saadia Mccann MD Admitting Physician: Saadia Mccann MD Referring Physician: Not on Staff, Referring [...] n 1Result Comment: [facility]: [id number] 2Result Comment: [04/29/2017] [id number] 3Admin Note: FLUARIX 4Admin Note: 3 RDINJ 5Admin Note: #2 Medications acamprosate 333 mg oral delayed release tablet 1 tablet = 333 mg, By Mouth, 3 times a day, # 42 tablet, 4 Refills, Maintenance, 11/05/22 11:31:00 EDT, EC Tablet, [facility], Partial fill upon patient request if the prescription is for a schedule II opioid drug., 175, cm, 11/05/22 10:21:00... Start Date: 11/05/22 Stop Date: 01/14/23 Status: Ordered amLODIPine 5 mg oral tablet 1 tablet, By Mouth, Daily, ^1R1., # 30 tablet, 5 Refills, Maintenance, 12/22/22 7:20:00 EDT, [facility], 175, cm, 12/03/22 11:50:00 EDT, Height, 88.9, kg, 10/21/22 20:41:00 EDT, Dry Weight Start Date: 12/22/22 Status: Ordered bacitracin zinc 500 units/g topical ointment 1 application, Topically, 2 times a day, # 30 Gm, 0 Refills, Acute 02/19/23 20:00:00 EDT, 02/12/23 11:47:00 EDT, Ointment, [facility], Partial fill upon patient request [...] Required Details, Route to Pharmacy Electronically, [facility], 175, cm... Start Date: 01/14/23 Status: Ordered calcium (as carbonate)-vitamin D 500 mg-400 intl units oral tablet 1 tablet, By Mouth, Daily, ^1R1., # 28 tablet, 0 Refills, Maintenance, 12/01/22 16:12:00 EDT, [facility], 28, 1 tablet By Mouth Daily,Instr:^1R1., [...] capsule, 6 Refills, Maintenance, 12/03/22 12:13:00 EDT, [facility], 175, cm, 12/03/22 11:50:00 EDT, Height, [...] Gm, 0 Refills, Maintenance, 01/28/23 12:31:00 EDT, [facility], 13, APPLY TOPICALLY FOUR TIMES A DAY NEEDED FOR PAIN, 175, cm, 12/03/22 11:50:00 EDT, Height, 88.9,... Start Date: 01/28/23 Status: Ordered diclofenac 1% topical gel See Instructions, APPLY TOPICALLY FOUR TIMES A DAY NEEDED FOR PAIN, # 100 Gm, 0 Refills, Maintenance, 12/22/22 16:58:00 EDT, [facility], 13, APPLY TOPICALLY FOUR TIMES A [...] Gm, 11 Refills, Maintenance, 08/07/22 12:12:00 EST, [facility]/pharmacy #[id number], 30, USE 1 SPRAY(S) INTO EACH NOSTRIL TWICE A DAY, 176, cm,08/07/22 11:37:00 EST, Height, 79.8, kg, 07/31/22 2... Start Date: 08/07/22 Status: Ordered folic acid 1 mg oral tablet 1, tablet, By Mouth, Daily, R1., # 30 tablet, Refills 5, Tot. Refills 5, Maintenance, 10/06/22 4:59:00 EDT, Route to Pharmacy Electronically, [facility], 176, cm, 09/07/22 8:56:00 EDT, Height, 82.1, kg, 09/07/22 8:59:00 EDT, Dry Weight Start Date: 10/06/22 Status: Ordered furosemide 20 mg oral tablet 1, tablet, By Mouth, Daily, R1., # 30 tablet, Refills 5, Tot. Refills 5, Maintenance, 09/03/22 14:50:00 EDT, Route to Pharmacy Electronically, [facility], 169, cm, 09/03/22 14:21:00 EDT, Height, 69, kg, 08/16/22 1:04:00 EST, Dry Weight Start Date: 09/03/22 Status: Ordered furosemide 20 mg oral tablet 20 mg, 1, tablet, By Mouth, Every other day, # 30 tablet, Refills 3, Tot. Refills 3, Maintenance, 01/28/23 12:31:00 EDT, [facility], Partial fill upon patient request if the prescription is for a schedule II o... Start Date: 01/28/23 Status: Ordered gabapentin 300 mg oral capsule 300 mg, 1, capsule, By Mouth, Daily at bedtime, note dose/frequency change, # 90 capsule, Refills 4, Tot. Refills 4, Maintenance, 11/05/22 11:05:00 EDT, Route to Pharmacy Electronically, [facility], 175, cm, 11/05/22 10:21:00 EDT, Height, 88.9... Start Date: 11/05/22 Stop Date: 01/29/24 Status: Ordered hydrOXYzine hydrochloride 10 mg oral tablet 2 tablet, By Mouth, 2 times a day, PRN NEEDED FOR ANXIETY (VIAL), # 30 tablet, 3 Refills, Maintenance, 12/22/22 16:57:00 EDT, [facility], 175, cm, 12/03/22 11:50:00 EDT, Height, 88.9, kg, 10/21/22 20:41:00 EDT, Dry Weight Start Date: 12/22/22 Status: Ordered lactulose 10 gm/15 ml oral syrup 15 mL, By Mouth, 2 times a day, # 120 mL, 6 Refills, Maintenance, 09/22/22 12:15:00 EDT, [facility], 4, TAKE 15ML BY MOUTH TWO TIMES A DAY, 176, cm, 09/07/22 8:56:00 EDT, Height, 82.1, kg, 09/07/22 8:59:00 EDT, Dry Weight Start Date: 09/22/22 Status: Ordered Lidoderm 5% film 1 patch, Topically, Daily, remove patches after 12 hours NSAIDS contraindicated High dose tylenol contraindicated remove patches after 12 hours Nueropathy, # 30 patch, 5 Refills, Maintenance, 11/05/22 11:04:00 EDT, [facility], Partial klaudia... Start Date: 11/05/22 Status: Ordered magnesium oxide 400 mg oral tablet See Instructions, TAKE 1 TABLET BY MOUTH TWICE A DAY^1R1,1R4, # 60 tablet, 11 Refills, Maintenance,01/28/23 12:31:00 EDT, [facility], 175, cm, 12/03/22 11:50:00 EDT, Height, 88.9, kg, 10/21/22 20:41:00 EDT, Dry Weight Start Date: 01/28/23 Status: Ordered Melatonin 3 mg oral tablet 1 tablet, By Mouth, Daily at bedtime, PRN NEEDED FOR INSOMNIA (PACKAGE IN TRAY)^1R4, # 60 tablet, 5 Refills, Maintenance, 06/12/22 18:11:00 EST, [facility], 60, TAKE 1 TABLET BY MOUTH [...] 09/03/22 14:53:00 EDT, Route to Pharmacy Electronically, [facility], Partial fill upon patient request if [...] 11/05/22 11:31:00 EDT, Route to Pharmacy Electronically, [facility], Partial fill upon patient request if the prescription is for a schedule II opioid drug... Start Date: 11/05/22 Status: Ordered Tab-A-Jesse oral tablet 1 tablet, By Mouth, Daily, # 90 tablet, 1 Refills, 12/01/22 12:59:00 EDT, [facility], 28, 1tablet By Mouth Daily, 175, cm, 11/13/22 10:42:00 EDT, Height, 88.9, kg, 10/21/22 20:41:00 EDT, DryWeight Start Date: 12/01/22 Status: Ordered traZODone 50 mg oral tablet 2 tablets, By Mouth, Daily at bedtime, # 60 each, Refills 5, Tot. Refills 5, Maintenance, 09/03/22 17:13:00 EDT, Route to Pharmacy Electronically, [facility], 169, cm, 09/03/22 14:21:00 EDT, Height, [...] 02/09/23 23:18:00 EDT, Route to Pharmacy Electronically, [facility], 175, cm, 12/03/22 11:50:00 EDT, Height, 88.9, kg, 10/21/22 20:41:00 EDT, Dry Weight Start Date: 02/09/23 Status: Ordered Vitamin B6 50 mg oral tablet 1, tablet, By Mouth, Daily, R1., # 90 tablet, Refills 4, Maintenance, 11/16/22 13:39:00 EDT, Route to Pharmacy Electronically, [facility], 175, cm, 11/13/22 10:42:00 EDT, Height, [...] tablet, 3 Refills, Maintenance, 10/01/22 15:19:00 EDT, [facility], 176, cm, 09/07/22 8:56:00 EDT, Height, [...] Exam Date Time Procedure Performing Provider Status 02/12/23 10:31 AM Foot Min 3 Views Left Jackie Watters; Auth (Verified) Notes: (Foot Min 3 Views Left) Reason For Exam: with Pain;Trauma RESULT: Foot Min 3 Views Left Foot Min 3 Views Left, 3 views INDICATION: Status post slip and fall, injuring left toenail. Clinical Question(s): Foreign Body; COMPARISON: 08/16/2022. FINDINGS: No acute fractures or suspicious osseous lesions. There are postsurgical changes including instrumented fusion of the first MTP joint. No radiopaque foreign bodies are seen. IMPRESSION: No fractures or foreign bodies. WSN: [id number] Ordering Physician: Shine Gordon Dictated By: Surya Roberts MD Dictated Date/Time: 02/12/23 10:34 a Reviewed By: Surya Roberts MD Signed By: Surya Roberts MD Signed Date/Time: 02/12/23 10:34 am Transcribed By: MIRNA Transcribed Date/Time: 02/12/23 10:32 am Vital Signs Most recent to oldest [Reference Range]: 1 2 3 Weight 84 kg (02/12/23 11:30 AM) 84 kg (02/12/23 2:56 AM) Oxygen Saturation [94-100 %] 100 % (02/12/23 11:30 AM) 100 % (02/12/23 7:09 AM) 100 % (02/12/23 2:56 AM) Pulse Rate [55-90 bpm] 82 bpm (02/12/23 11:30 AM) 92 bpm *H* (02/12/23 7:09 AM) 90 bpm (02/12/23 2:56 AM) Blood Pressure [90-138/55-84 mm Hg] 154/85mm Hg *H* (02/12/23 11:30 AM) 160/85mm Hg *H* (02/12/23 7:09 AM) 159/100mm Hg *H* (02/12/23 2:56 AM) Respiratory Rate [16-30 br/min] 16 br/min (02/12/23 11:30 AM) 18 br/min (02/12/23 7:09 AM) 16 br/min (02/12/23 2:56 AM) Temperature [96.8-100.4 DegF] 97.7 DegF (02/12/23 11:30 AM) 97.5 DegF (02/12/23 7:09 AM) 97.7 DegF (02/12/23 2:56 AM) Mode of Delivery (Oxygen) Room air (02/12/23 11:30 AM) Room air (02/12/23 7:09 AM) Room air (02/12/23 2:56 AM) Blood pressure sites Arm, right (02/12/23 11:30 AM) Arm, left (02/12/23 7:09 AM) Temperature Route Oral (02/12/23 11:30 AM) Oral (02/12/23 7:09 AM) Oral (02/12/23 2:56 AM) Dry Weight 84 kg (02/12/23 11:30 AM) 84 kg (02/12/23 2:56 AM) Weight Obtained Via Patient/family state d (02/12/23 2:56 AM) Dry Weight Obtained Via Patient/family s tated (02/12/23 2:56 AM) Social History Social History Type Response Smoking Status 10 or more cigarette s (1/2 pack or more)/day in last 30 days entered on: 02/04/19 Sex Patient Care team information Care Team Personnel Name: Darrian RN, Alexandra Demarco Position: [facility] ED RN W/OE and Tasks Member Role: Primary Care Nurse Name: Garima Manzano RN Position: [facility] RN Member Role: Primary Care Nurse Name: Malgorzata Marinelli RN Position: [facility] RN Member Role: Primary Care Nurse Name: Joyce Roach RN Position: [facility] RN Member Role: Primary Care Nurse Name: Mary Suazo RN Position: [facility] RN Member Role: Primary Care Nurse Name: Andres Pressley RN Position: [facility] RN Member Role: Primary Care Nurse Name: Jany Baig DO Position: [facility] Physician - Primary Care Member Role: PCP Address: Address: [address] [place] [address] Adult [place] [address]- Name: Neida Ballard RN Position: [facility] RN Member Role: Primary Care Nurse Name: Kaye Payne RN Position: [facility] RN Member Role: Primary Care Nurse Name: Garima Hutchinson Position: [facility] RN Member Role: Primary Care Nurse Name: Malgorzata Austin Position: [facility] RN Member Role: Primary Care Nurse Name: Ibeth Adams RN Position: [facility] RN Member Role: Primary Care Nurse Name: Torrie Hernandez RN Position: [facility] OB RN Member Role: Primary Care Nurse Name: Gretchen Knutson RN Position: [facility] SN RN Member Role: Primary Care Nurse Name: Aislinn Mckee RN Position: [facility] RN Member Role: Primary Care Nurse Name: Ashley Mcelroy Position: [facility] RN Member Role: Primary Care Nurse Name: Cody Garcia Position: [facility] Associate Professional Member Role: Lifetime Consulting Provider Address: Address: [address] [place] [address]- Name: Ge Covarrubias RN Position: [facility] RN Member Role: Primary Care Nurse Name: Orin Elmore RN Position: [facility] ED RN W/OE and Tasks Member Role: Primary Care Nurse Name: Allegra Liu RN Position: [facility] AMB Nurse Member Role: Primary Care Nurse Name: Shayan Pandya MD Position: [facility] Renal MD Member Role: Lifetime Consulting Physician Address: Address: [address] [place] [address] [address] [facility], [place] [address]- Name: Darlene Rodrigez RN Position: [facility] RN Member Role: Primary Care Nurse Name: Kwan Mills RN Position: [facility] RN Member Role: Primary Care Nurse Name: Dolores Can RN Position: [facility] RN Member Role: Primary Care Nurse Name: Monica Rowell RN Position: [facility] RN Member Role: Primary Care Nurse Name: Jimi Fitzpatrick RN Position: [facility] RN Member Role: Primary Care Nurse Name: Shine Gordon MD Position: [facility] Resident Member Role: Resident Address: Address: [address] [place] [id number]- Name: Jia Moreno RN Position: [facility] ED RN W/OE and Tasks Member Role: Patient Care Provider Name: Desi Crockett Position: [facility] ED TA [facility] Member Role: Design Quality Engineer Name: Siobhan LEE, Saadia Stewart Position: [facility] Resident Member Role: Admitting Physician Address: Address: [address] [place] [address]- Care Team Related Persons Name: MARLEN CABEZAS Address: home [address] [place] [address] Name: MARLEN CABEZAS Address: home [address] [place] [id number] Name: NICK CABEZAS Name: GEMA CABEZAS Address: home [address] [place] [address]
--- OUTSIDE RECORDS SUMMARY | 2023-12-15 20:51 | XMS_ITS | Continuity of Care Document ---
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 Refills 4, Maintenance, 10/06/19 16:18:00 EDT, [facility], [facility], cm, 08/24/19 14:14:00EDT, Height, 81.2, kg, 02/04/19 1:40:00 EDT, Dry We... Start Date: 10/06/19 Stop Date: 03/04/20 Status: Ordered chantix 1mg tablet 1 tablet = 1 mg, By Mouth, 2 times a day, with a full glass of water, continue for total of 12 wks,# 56 tablet, 1 Refills, Maintenance, 10/06/19 15:54:00 EDT, Tablet, [facility], 175, cm, 08/24/19 14:14:00 EDT, Height, 81.2, kg, 02/04/19 1:40... Start Date: 10/06/19 Status: Ordered chantix 1mg tablet See Instructions, TAKE 1 TABLET BY MOUTH TWICE A DAY WITH A FULL GLASS OF WATER AND CONTINUE FOR A TOTAL OF 12 WEEKS, # 56 tablet, 0 Refills, Maintenance, 12/29/19 16:43:00 EDT, [facility], 175, cm, 08/24/19 14:14:00 EDT, Height, 81.2, kg, ... Start Date: 12/29/19 Status: Ordered Co Q-10 100 mg oral capsule 1 capsule, By Mouth, 4 times a day, # 120 capsule, 11 Refills, Maintenance, 11/21/19 10:36:00 EDT, [facility]/pharmacy #[id number], 175, cm, 08/24/19 14:14:00 EDT, Height, 81.2, kg, 02/04/19 1:40:00 EDT, Dry Weight Start Date: 11/21/19 Stop Date: 11/15/20 Status: Ordered Engerix-B 20 mcg/mL intramuscular suspension = 20 mcg, Intramuscular, Every 30 days, rpt at 1 and 6 months, # 1 mL, 2 Refills, Maintenance, 11/02/19 9:02:00 EDT, Suspension, [facility]/pharmacy #[id number], 175, cm, 08/24/19 14:14:00 EDT, Height, 81.2, kg, 02/04/19 1:40:00 EDT, Dry Weight Start Date: 11/02/19 Status: Ordered fluticasone 50 mcg/inh nasal spray See Instructions, SPRAY 1 SPRAY INTO EACH NOSTRIL TWICE A DAY, # 16 Gm, 3 Refills, 10/06/19 14:35:00 EDT, [facility], 30, SPRAY 1 SPRAY INTO EACH NOSTRIL TWICE A DAY, 175, cm, 08/24/19 14:14:00 EDT, Height, 81.2, kg, 02/04/19 1:40:00 EDT, Dry... Start Date: 10/06/19 Status: Ordered gabapentin 600 mg oral tablet 1 tablet = 600 mg, By Mouth, 4 times a day, to replace prior script, # 120 tablet, 3 Refills, Maintenance, 10/09/19 11:18:00 EDT, Tablet, [facility], 175, cm, 08/24/19 14:14:00 EDT, Height, 81.2, kg, 02/04/19 1:40:00 EDT, Dry Weight Start Date: 10/09/19 Stop Date: 02/06/20 Status: Ordered hydrOXYzine hydrochloride 25 mg oral tablet 1 TO 2 TABLETS, By Mouth, 3 times a day, PRN NEEDED FOR ANXIETY, # 60 tablet, 2 Refills, Maintenance, 12/01/19 13:15:00 EDT, [facility], 175, cm, 08/24/19 14:14:00 EDT, Height, 81.2, kg, 02/04/19 1:40:00 EDT, Dry Weight Start Date: 12/01/19 Status: Ordered lactulose 10 gm/15 ml oral syrup 30 mL = 20 Gm, By Mouth, 3 times a day, PRN Other, for 30 days, PRN to acheive 3-4 BMs per day fillin prefilled syringes, # 3,000 mL, 11 Refills, Acute 11/25/20 16:37:00 EDT, 12/01/19 16:37:00 EDT, Syrup, [facility], re sent from 10/04/17, 30... Start [...] EDT, Syrup Start Date: 02/06/19 Status: Ordered Melatonin 3 mg oral tablet 1 tablet = 3 mg, By Mouth, Daily at bedtime, PRN for insomnia, # 60 tablet, 0 Refills, Maintenance,06/26/19 20:34:00 EST, Tablet Start Date: 06/26/19 Status: Ordered melatonin 3 mg oral tablet 1 tablet = 3 mg, By Mouth, Daily at bedtime, PRN for insomnia, # 60 tablet, 4 Refills, Maintenance,10/06/19 16:16:00 EDT, Tablet, [facility], 175, cm, 08/24/19 14:14:00 EDT, Height, 81.2, kg, 02/04/19 1:40:00 EDT, Dry Weight Start Date: 10/06/19 Status: Ordered mupirocin 2% topical ointment See Instructions, APPLY TOPICALLY THREE TIMES DAILY (APPLY A THIN FILM), # 22 Gm, 0 Refills, Acute,[facility], 8, APPLY TOPICALLY THREE TIMES DAILY (APPLY A THIN FILM), 175, cm, 08/24/19 14:14:00 EDT, Height, 81.2, kg, 02/04/19 1:40:00 EDT, D... Start Date: 10/30/19 Status: Ordered mupirocin 2% topical ointment See Instructions, APPLY TOPICALLY THREE TIMES DAILY (APPLY A THIN FILM), # 22 Gm, 0 Refills, Maintenance, 12/29/19 16:43:00 EDT, [facility], 8, APPLY TOPICALLY THREE TIMES DAILY (APPLY A THINFILM), 175, cm, 08/24/19 14:14:00 EDT, Height, 81.2... Start Date: 12/29/19 Status: Ordered naltrexone 50 mg oral tablet 1 tablet = 50 mg, By Mouth, Daily, through [facility], # 30 tablet, 0 Refills, Maintenance, 05/10/18 9:30:24 EST, Tablet Start Date: 05/10/18 Status: Ordered pantoprazole 40 mg oral delayed release tablet 1 tablet, By Mouth, 2 times a day, # 60 tablet, 2 Refills, Maintenance, 10/30/19 8:30:00 EDT, 175, cm, 08/24/19 14:14:00 EDT, Height, 81.2, kg, 02/04/19 1:40:00 EDT, Dry Weight Start Date: 10/30/19 Status: Ordered sertraline 100 mg oral tablet 1 tablet = 100 mg, By Mouth, Daily, combine with 50mg tab to equal 150mg daily, # 90 tablet, 1 Refills, Maintenance, 10/06/19 15:57:00 EDT, [facility], [facility], [facility], cm, 08/24/19 14:14:00 EDT,Height, 81.2, kg, 02/04/19 1:40:00 EDT, Dry Weight Start Date: 10/06/19 Status: Ordered sertraline 50 mg oral tablet 1 tablet, By Mouth, Daily, TAKE ALONG WITH A 100MG TABLET to equal 150mg daily, # 90 tablet, 1 Refills, Maintenance, 10/06/19 15:57:00 EDT, [facility], 175, cm, 08/24/19 14:14:00 EDT, Height,81.2, kg, 02/04/19 1:40:00 EDT, Dry Weight Start Date: 10/06/19 Status: Ordered Tab-A-Jesse oral tablet 1 tablet, By Mouth, Daily, # 30 tablet, 11 Refills, Maintenance, 06/16/19 12:42:00 EST, [facility], 30, TAKE 1 TABLET BY MOUTH ONCE A DAY, 175, cm, 02/06/19 7:59:00 EDT, Height, 81.2, kg, 02/04/19 1:40:00 EDT, Dry Weight Start Date: 06/16/19 Status: Ordered thermometer R50.9 thermometer R50.9, See [...] [facility], [facility], cm, 08/24/19 14:14:0... Start Date: 09/14/19 Status: Ordered Vitamin B1 100 mg oral tablet 1, tablet, By Mouth, Daily, # 90 tablet, Refills 3, Tot. Refills 3, Maintenance, 09/27/19 8:51:00 EDT, Route to Pharmacy Electronically, [facility], 175, cm, 08/24/19 14:14:00 EDT, Height, 81.2, kg, 02/04/19 1:40:00 EDT, Dry Weight Start Date: 09/27/19 Status: Ordered Xifaxan 550 mg oral tablet 1 tablet, By Mouth, 2 times a day, # 60 tablet, 0 Refills, Maintenance, 10/30/19 16:57:00 EDT, [facility], 175, cm, 08/24/19 14:14:00 EDT, Height, 81.2, kg, 02/04/19 1:40:00 EDT, Dry Weight Start Date: 10/30/19 Status: Ordered Xifaxan 550 mg oral tablet See Instructions, TAKE 1 TABLET BY MOUTH TWICE A DAY, # 60 tablet, 0 Refills, 12/29/19 16:43:00 EDT, [facility], 175, cm, 08/24/19 14:14:00 EDT, Height, [...]
--- OUTSIDE RECORDS SUMMARY | 2023-12-15 20:51 | XMS_ITS | Continuity of Care Document ---
Author Organization [facility] ter Address [address] [place] [id number]- Care Team Providers Care [employer] Assembler Name Role Phone Jany Baig DO Primary Care Physician [place] [facility] [place]): [place] 11/18/[address] [address]- Encounter Diagnosis Chronic hip pain(Final) - 11/06/23 Discharge Disposition: A-Transfer SNF Attending Physician: Dominic Abdalla MD Admitting Physician: Phong Frankel DO Referring Physician: Not on Staff, Referring [...] Give n 1Result Comment: [facility]: [id number] 2Result Comment: [04/29/2017] [id number] 3Admin Note: FLUARIX 4Admin Note: 3 RDINJ 5Admin Note: #2 Medications acamprosate 333 mg oral delayed release tablet 2 tablet = 666 mg, By Mouth, 3 times a day, # 180 tablet, 1 Refills, Maintenance, 07/28/23 11:04:00EST, EC Tablet, [facility], Partial fill upon patient request if [...] 07/28/23 11:10:00 EST, Route to Pharmacy Electronically, [facility], Partial fill upon patient request if the prescription is for a schedule II o... Start Date: 07/28/23 Status: Ordered baclofen 10 mg oral tablet 10 mg, Tablet, By Mouth, 11/18/23 15:00:00 EDT Start Date: 11/18/23 Stop Date: 11/18/23 Status: Completed calcium (as carbonate)-vitamin D 500 mg-400 intl [...] 07/28/23 12:08:00 EST, Route to Pharmacy Electronically, [facility], 175, cm, 07/28/23 9:11:00 EST, Height, 61.3, kg, 07/12/23 23:27:00 EST, Dry Weight Start Date: 07/28/23 Status: Ordered furosemide 20 mg oral tablet 20 mg, 1, tablet, By Mouth, Every other day, # 30 tablet, Refills 1, Tot. Refills 1, Maintenance, 07/28/23 12:08:00 EST, Route to Pharmacy Electronically, [facility], Partial fill upon patient request if the prescription is for a schedule II... Start Date: 07/28/23 Status: Ordered gabapentin 300 mg oral capsule 300 mg, 1, capsule, By Mouth, Daily at bedtime, note dose/frequency change, # 30 capsule, Refills 1, Tot. Refills 1, Maintenance, 07/28/23 12:09:00 EST, Route to Pharmacy Electronically, [facility], 175, cm, 07/28/23 9:11:00 EST, Height, [...] opioid drug. Start Date: 11/06/23 Status: Ordered oxyCODONE 5 mg oral tablet 5 mg, By Mouth, Every 3 hours, PRN, for 2 days, # 7 tablet, Refills 0, Tot. Refills 0, Acute 11/20/23 13:53:00 EDT, Pain , Moderate, 11/18/23 13:53:00 EDT, [facility], Partial fill upon patient request if the prescription is for a schedule II o... Start Date: 11/18/23 Stop Date: 11/20/23 Status: Ordered oxyCODONE 5 mg oral tablet 5 mg, Tablet, By Mouth, Every 3 hours, PRN for Pain , Moderate, Routine, 11/15/23 12:40:00 EDT Start Date: 11/15/23 Stop Date: 11/19/23 Status: Discontinued pantoprazole 40 mg oral delayed release tablet [...] tablet, 5 Refills, Maintenance, 05/06/23 19:16:00 EST, [facility], 30, TAKE 1 TABLET [...] 07/28/23 12:12:00 EST, Route to Pharmacy Electronically, [facility], 175, cm, 07/28/23 9:11:00 EST, Height, 61.3, kg, 07/12/23 23:27:00 EST, Dry Weight Start Date: 07/28/23 Status: Ordered Vitamin B6 50 mg oral tablet 1, tablet, By Mouth, Daily, R1., # 90 tablet, Refills 4, Tot. Refills 4, Maintenance, 07/28/23 12:11:00 EST, Route to Pharmacy Electronically, [facility], 175, cm, 07/28/23 9:11:00 EST, Height, 61.3, kg, 07/12/23 23:27:00 EST, Dry Weight Start Date: 07/28/23 Status: Ordered Xifaxan 550 mg oral tablet See Instructions, 1 tablet By Mouth 2 times a day, # 60 each, 5 Refills, Maintenance, 09/30/23 19:11:00 EDT, [facility], 175, cm, 09/24/23 11:09:00 EDT, Height, [...] Exam Date Time Procedure Performing Provider Status 11/09/23 9:25 AM C-Arm > 1 Hour Vaganek , Blade; Auth ( Verified) Notes: (C-Arm > 1 Hour) Reason For Exam: right hardware removal RESULT: C-Arm > 1 Hour Femur 2 Views Right, C-Arm > 1 Hour, 2 views Reason: right hardware removal COMPARISON: 08/22/2023 FINDINGS: Multiple fluoroscopic spot images during femoral hardware removal procedure with subsequent antibiotic impregnated eduardo placement IMPRESSION: See above WSN: [id number] Ordering Physician: Tobias Hernandez Dictated By: Nick Carson MD Dictated Date/Time: 11/09/23 12:30 p Reviewed By: Nick Carson MD Signed By: Nick Carson MD Signed Date/Time: 11/09/23 12:30 pm Transcribed By: MIRNA Transcribed Date/Time: 11/09/23 12:28 pm * Exam Date Time Procedure Performing Provider Status 11/09/23 9:25 AM XR Femur 2 Views Right Vaganek , Blade ; Modified Notes: (XR Femur 2 Views Right) Reason For Exam: right hardware removal RESULT: Femur 2 Views Right Femur 2 Views Right, C-Arm > 1 Hour, 2 views Reason: right hardware removal COMPARISON: 08/22/2023 FINDINGS: Multiple fluoroscopic spot images during femoral hardware removal procedure with subsequent antibiotic impregnated eduardo placement IMPRESSION: See above WSN: [id number] Ordering Physician: Tobias Hernandez Dictated By: Nick Carson MD Dictated Date/Time: 11/09/23 12:30 p Reviewed By: Nick Carson MD Signed By: Nick Carson MD Signed Date/Time: 11/09/23 12:30 pm Transcribed By: MIRNA Transcribed Date/Time: 11/09/23 12:28 pm * Exam Date Time Procedure Performing Provider Status 11/05/23 7:45 PM Chest 2 Views Frontal and Lat Zeferino Chavez; Auth (Verified) Notes: (Chest 2 Views Frontal and Lat) Reason For Exam: chest pain;Other: RESULT: Chest 2 Views Frontal and Lat Chest 2 Views Frontal and Lat Hx of Present Illness: AMs; Reason: Other:; chest pain; Clinical Question(s): Pneumonia COMPARISON: 05/14/2023 FINDINGS: LINES AND TUBES: None. LUNGS AND PLEURA: Clear lungs. Normal pulmonary vascularity. No pleural effusion. No pneumothorax. HEART, MEDIASTINUM AND DEEDEE: Heart is normal in size. Normal mediastinal and hilar contour. BONES AND SOFT TISSUES: No acute abnormality.: Localization material in the upper abdomen. Similar healed deformity of multiple right mid to lower ribs and left multiple posterior ribs. IMPRESSION: No acute cardiopulmonary abnormality or change. WSN: [id number] Ordering Physician: Houston Carpenter Dictated By: Eden Resendiz MD Dictated Date/Time: 11/05/23 7:47 pm Reviewed By: Eden Resendiz MD Signed By: Eden Resendiz MD Signed Date/Time: 11/05/23 7:47 pm Transcribed By: MIRNA Transcribed Date/Time: 11/05/23 7:46 pm Vital Signs Most recent to oldest [Reference Range]: 1 2 3 Height 172 cm (11/18/23 12:53 PM) 172 cm (11/18/23 7:00 AM) 172 cm (11/18/23 4:34 AM) Weight 80 kg (11/09/23 6:52 AM) 80 kg (11/07/23 5:13 PM) 80 kg (11/07/23 3:58 PM) Oxygen Saturation [94-100 %] 100 % (11/18/23 12:53 PM) 97 % (11/18/23 7:00 AM) 97 % (11/18/23 4:34 AM) Pulse Rate [55-90 bpm] 87 bpm (11/18/23 12:53 PM) 73 bpm (11/18/23 7:00 AM) 78 bpm (11/18/23 4:34 AM) Body Mass Index [18.5-24.99 kg/m2] 27.04 kg/m2 *H* (11/09/23 6:52 AM) 27.04 kg/m2 *H* (11/07/23 5:13 PM) 27.04 kg/m2 *H* (11/07/23 3:58 PM) Blood Pressure [90-138/55-84 mm Hg] 126/58mm Hg (11/18/23 12:53 PM) 109/62mm Hg (11/18/23 7:00 AM) 119/62mm Hg (11/18/23 4:34 AM) Respiratory Rate [16-30 br/min] 20 br/min (11/18/23 4:38 PM) 20 br/min (11/18/23 4:37 PM) 18 br/min (11/18/23 12:53 PM) Temperature [96.8-100.4 DegF] 98.1 DegF (11/18/23 12:53 PM) 98.1 DegF (11/18/23 7:00 AM) 98.3 DegF (11/18/23 4:34 AM) Liters per Minute 2 L/min (11/09/23 11:42 AM) 2 L/min (11/09/23 11:00 AM) 2 L/min (11/09/23 10:45 AM) Mode of Delivery (Oxygen) Room air (11/18/23 12:53 PM) Room air (11/18/23 7:00 AM) Room air (11/18/23 4:34 AM) Blood pressure sites Arm, right (11/18/23 12:53 PM) Arm, right (11/18/23 7:00 AM) Arm, right (11/18/23 4:34 AM) Temperature Route Oral (11/18/23 12:53 PM) Oral (11/18/23 7:00 AM) Oral (11/18/23 4:34 AM) Dry Weight 80 kg (11/09/23 6:52 AM) 80 kg (11/07/23 5:13 PM) 80 kg (11/07/23 3:58 PM) Social History Social History Type Response Smoking Status 10 or more cigarette s (1/2 pack or more)/day in last 30 days entered on: 02/04/19 Sex Note * Kaye Mccray RN: PERFORM Event Display: Discharge/Transfer Note Hospital Authored Date: [id number] Nursing Discharge Note Entered On: 11/18/2023 18:08 EDT Performed On: 11/18/2023 18:01 EDT by Kaye Mccray RN Nursing Discharge Note 2 Discharge Time : 11/18/2023 19:20 EDT Carroll LOUIE, Anita - 11/18/2023 19:27 EDT Discharge Level of Care at Discharge : intermediate facility Discharge Nursing Homes/Rehab Facilities : [facility] Patient Left Unit Via : Chair Van Patient Accompanied Off Unit with : Ambulance/Chair Van Personnel Handover Given to Transport Personnel : Yes DC Instructions Provided & Signed by Pt : No Patient Understands D/C Instructions : Yes Verbalized Understanding of D/C Plan By : Patient Patient Instructions Discharge Signed : No Instructions for Discharge Comments : not required for rehab Discharge Comments : patient received IV dose of Vancomycin prior to D/C via PICC, tolerated well. Patient also medicated with 3pm meds and oxycodone for pain as requested by workplace rehabilitation officer Did Pt have Specialty Bed or Wound Vac : Kaye Santana RN - 11/18/2023 18:01 EDT * Lianne LEE, [facility]: MODIFY, MODIFY, MODIFY, MODIFY, PERFORM, MODIFY, MODIFY, MODIFY Event Display: Discharge/Transfer Note Hospital Authored Date: [id number] Patient: ??GEMA BASSETT ? Age:??48 Years?Sex:??Male?:??1975?? Patient Information Discharge Location: [facility] Primary Care Physician: Jany Baig DO Admit Date/Time: 11/07/23 14:57 Discharge Disposition Discharge Disposition: ?? 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At least 2weeks. According to ambulation Fluticasone Nasal (fluticasone 50 mcg/inh nasal spray)?1?spray(s)?50?Microgram?Nares, Both?2 times a day Folic Acid (folic acid 1 mg oral tablet)?1?tablet?By Mouth?Daily?^1R1. Furosemide (furosemide 20 mg oral tablet)?20?Milligram?1?tablet?By Mouth?Every other day Gabapentin (gabapentin 300 mg oral capsule)?300?Milligram?1?capsule?By Mouth?Daily at bedtime?note dose/frequency change HydrOXYzine (hydrOXYzine hydrochloride 10 mg oral tablet)?2?tab(s)?20?Milligram?By Mouth?2 times a day?as needed?as needed for anxiety Lactulose (lactulose 10 gm/15 ml oral syrup)?30?Milliliter?20?gram?By Mouth?3 times a day Magnesium Oxide (magnesium oxide 400 mg oral tablet)?1?tab(s)?400?Milligram?By Mouth?Daily Melatonin (melatonin 3 mg oral tablet)?1?tab(s)?3?Milligram?By Mouth?Daily at bedtime Multivitamin (Tab-A-Jesse oral tablet)?1?tab(s)?By Mouth?Daily?R1. Oxycodone (oxyCODONE 5 mg oral tablet)?5?Milligram?By Mouth?Every 3 hours?as needed?for 2?Days?Pain , Moderate Pantoprazole (pantoprazole 40 mg oral delayed release tablet)?1?tab(s)?By Mouth?Daily?^1R1. Paroxetine (PARoxetine 20 mg oral tablet)?20?Milligram?1?tablet?By Mouth?Daily Maite Polyethylene Glycol 3350 (polyethylene glycol 3350 oral powder for reconstitution)?17?gram?By Mouth?Daily?dissolve in 4 to 8 oz of beverage Pyridoxine (Vitamin B6 50 mg oral tablet)?1?tablet?By Mouth?Daily?R1. Rifaximin (Xifaxan 550 mg oral tablet)?See Instructions?1 tablet By Mouth 2 times a day Senna?8.6?Milligram?By Mouth?2 times a day Simethicone?80?Milligram?By Mouth?3 times a day Sodium Biphosphate-Sodium Phosphate (Fleet Enema 19 gm-7 gm rectal enema)?1?Each?Rectally?Daily?as needed?for constipation Sodium Chloride (Saljet Sterile 0.9% irrigation solution)?See Instructions?Use for wound care, delayed wound Right hip. T14.8XXD Thiamine (Vitamin B1 100 mg oral tablet)?1?tablet?By Mouth?Daily Trazodone (traZODone 100 mg oral tablet)?100?Milligram?1?tablet?By Mouth?Daily atbedtime Ubiquinone (Coenzyme Q10 100 mg oral capsule)?2?capsule?200?Milligram?By Mouth?Daily at bedtime Vancomycin (vancomycin 1.5 g intravenous injection)?1,500?Milligram?IVPB?Every 12 hours?6 W from 11/08 ?? Quality Measures Tobacco Use Treatment:? Medications Started Vancomycin and Lovenox??and oxycodone Medications Discontinued Aldactone and amlodipine Doses Changed None Allergies Allergies ?(Active and Proposed Allergies Only) [...] had GI side effects ? PCP Follow-Up/Heads-Up Follow-up with Ortho and ID Future Appointments Wednesday 1:40 PM EDT ?? With: Elias Hedrick MD Where: [facility] [address] [place] [address]- Status: Pending Wednesday 11:00 AM EDT ?? With: Jany Baig DO Where: [facility] [address] [place] [address]- Status: Pending Hospital Course ??48-year-old male with PMH of alcohol use disorder,??alcoholic liver cirrhosis; esophageal varicess/p TIPS; legal blindness; sleep apnea; neuropathy; history of polysubstance abuse; anemia; was brought in from [facility] after patient found to have room unkempt and unhygienic;??has upcoming??right hip??hardware removal surgery as??currently??right hip prosthesis??infected,??has??antibiotic beads;??being admitted under medicine service. s/p ??removal of prosthetic joint and antibiotics bed application by orthopedic. In day of discharge, patient seen at bedside. ??Denying chest painor shortness of breath. ??Patient is interested to go to rehab. ?? Right hip prosthesis infection: Reportedly has antibiotic beads. s/p ??removal of prosthetic joint and antibiotics bed application by orthopedic Cultures from 11/08--growing staph aureus S/p picc line ?? -Please give vanco XIANG at Rehab as pt is due now -Discharge to rehab with plan to stay less than 30 days -Continue levonex for at least 2 weeks. According to ambulation?? ID recs: -Stop ceftriaxone, continue vanco ?? Outpatient Parenteral Antimicrobial Treatment (OPAT) Plan: Indication: femur osteo MRSA Antimicrobials:?? vanco Planned Duration: 6 weeks Start Date:??11/08 Labs: While on IV antimicrobials please follow at least weekly:CBC with diff, BUN, creatinine, vancomycin trough?? ID clinic appt: Requested Comments: there are PO options (doxy or bactrim) if needed ID Office ID Office ?? Ortho recs: - Overall care per primary team - Acute blood loss postoperative anemia ? - Receiving transfusion currently ? - Monitor H&H; further transfusion per primary team - OOB with PT/OT TDWB RLE - DVT prophylaxis: Lovenox - OR cultures as above -??Antibiotics per??ID - Pain control per primary team -??Daily DSD changes, order placed for nursing ? - Asked RN to reach out if there is increased drainage from proximal incision/on proximal bandage - Encourage ice and elevation of right leg; ice directly over lateral right hp as well - Encourage IS/deep breathing - Bowel meds prn constipation -??Upon d/c, pending med clearance, improvement in H&H and final abx plan, will F/U Dr. Hernandez in 2 weeks, [facility] [address] [place], [place] ?? Anemia Require blood transfusion Pancytopenia: Likely in setting of??liver cirrhosis,??ongoing infection. ??Continue to monitor. ?? # Alcoholic liver cirrhosis: # Alcohol use disorder: -Continue home acamprosate 666 mg 3 times daily -Continue home Lasix 20 mg once daily -Holding Aldactone as blood pressure now ?? # History of hepatic encephalopathy: Continue home rifaximin 550 mg twice daily, lactulose ?? # Insomnia: Continue home trazodone # Anxiety: Continue home hydroxyzine # Neuropathy: Continue home gabapentin # HTN: Hold home amlodipine and??Aldactone with blood pressure low. # ANA LUISA: CPAP ? Objective Vital Signs?? Temperature: 99.3 DegF (11/17/23 07:00:00) Temperature Route: Oral (11/17/23 07:00:00) Pulse Rate: 85 bpm (11/17/23 07:00:00) Respiratory Rate: 18 br/min (11/17/23 09:00:00) Systolic Blood Pressure: 92 mm Hg (11/17/23 07:00:00) Diastolic Blood Pressure:??50 mm Hg??Low (11/17/23 07:00:00) Blood pressure sites: Arm, right (11/17/23 07:00:00) Mean Arterial Pressure: 64 mm Hg (11/17/23 07:00:00) Pulse Pressure: 42 mm Hg (11/17/23 07:00:00) Oxygen Saturation: 97 % (11/17/23 07:00:00) Mode of Delivery (Oxygen): Room air (11/17/23 07:00:00) FiO2: 21 % (11/17/23 00:05:00) Early Warning Score: 4 (11/17/23 12:19:27) ? . Physical Exam General?NAD, AAO HEENT?PERRLA, oropharynx clear, moist mucus membranes Pulm?CTA bilaterally, no wheezes/rhonchi/rales CV?RRR, +S1/S2, no murmurs/rubs GI?Soft, nontender, nondistended, no organomegaly, bowel sounds are present Neuro?Moves all extremities MS?no obvious deformity Psych?Mood appropriate to situation?? Rt hip clean dressing Surgical Procedures Removal Hardware Lower Extremity 11/09/2023 08:20 Incision and Drainage Femur/Thigh 11/09/2023 08:20 Insertion of Antibotic Eduardo Lower Extremi 11/09/2023 08:20 Pending Results AFB Culture w/Smear, Non-Blood ordered on 11/09/2023 AFB Culture w/Smear, Non-Blood ordered on 11/09/2023 Add On Lab Order ordered on 11/12/2023 Fungal Culture, Non-Blood ordered on 11/09/2023 Fungal Culture, Non-Blood ordered on 11/09/2023 Transfuse RBCs ordered on 11/12/2023 Transfuse RBCs ordered on 11/14/2023 Patient Education Titles WebMD Ignite Patient Education - Cirrhosis?? WebMD Ignite Patient Education - Lactulose Oral Solution?? WebMD Ignite Patient Education - Arthralgia?? Follow-Up Appointments Added Follow Up ?Time Frame ?Comments Jany Baig DO?1 week: call to discuss follow up visit Jany Baig DO Home Health Face to Face ^HomeHealth[facility] Results Discharge Labs AFB/FUNGUS Acid Fast Smear NEGATIVE ()?? 11/09/2023 08:47 Fungus Stain Final report ()?? 11/09/2023 08:47 Fungus Culture Isolate 1 Comment ()?? 11/09/2023 08:47 Acid Fast Cult Spec Source TISSUE ()?? 11/09/2023 08:47 Fungus Cult Specimen Source TISSUE ()?? 11/09/2023 08:47 AFB Spec Proc Concentration ()?? 11/09/2023 08:47 ?? BACTERIOLOGY Gram Stain Isolate 1 Comment ()?? 11/09/2023 08:47 Gram Stain Isolate 2 No organisms seen ()?? 11/09/2023 08:47 Gram Stain Result Final report ()?? 11/09/2023 08:47 Tissue/Biopsy Culture Results Final report (Abnormal)?? 11/09/2023 08:47 Anaerobic Cult, Extended Incub Preliminary report ()?? 11/09/2023 08:47 Tissue Cult Specimen Source TISSUE ()?? 11/09/2023 08:47 Tissue Cult Isolate 1 Comment (Abnormal)?? 11/09/2023 08:47 Anaerobic Culture Isolate 1 Comment ()?? 11/09/2023 08:47 ?? BLOOD BANK Blood Type O Negative ()?? 11/12/2023 06:17 Antibody Screen Negative ()?? 11/12/2023 06:17 RBC Unit ID [id number] ()?? 11/14/2023 11:10 RBC Available PT ()?? 11/14/2023 11:10 ?? BLOOD COUNT & DIFF WBC 4.0 k/mm3 ()?? 11/17/2023 03:07 RBC 2.84 m/mm3 (Low)?? 11/17/2023 03:07 Hgb 8.7 Gm/dL (Low)?? 11/17/2023 03:07 Hct 25.7 % (Low)?? 11/17/2023 03:07 MCV 90.5 femtoliters ()?? 11/17/2023 03:07 MCH 30.6 pg ()?? 11/17/2023 03:07 MCHC 33.9 g/dL ()?? 11/17/2023 03:07 Platelet Count 103 k/mm3 (Low)?? 11/17/2023 03:07 RDW-SD 51.6 femtoliters (High)?? 11/17/2023 03:07 MPV 10.4 femtoliters ()?? 11/17/2023 03:07 Nucleated RBC (Automated) 0.0 #/100 WBC'S ()?? 11/17/2023 03:07 Abs. NRBC 0.0 k/mm3 ()?? 11/17/2023 03:07 Abs. Neut 1.3 k/mm3 ()?? 11/09/2023 01:07 Abs. Lymph 1.5 k/mm3 ()?? 11/09/2023 01:07 Abs. [place] 0.5 k/mm3 ()?? 11/09/2023 01:07 Abs. Eo 0.2 k/mm3 ()?? 11/09/2023 01:07 Abs. Baso 0.0 k/mm3 ()?? 11/09/2023 01:07 Neut % 37.0 % (Low)?? 11/09/2023 01:07 Lymph % 42.8 % ()?? 11/09/2023 01:07 [place] % 14.7 % (High)?? 11/09/2023 01:07 Eos % 4.6 % ()?? 11/09/2023 01:07 Baso % 0.6 % ()?? 11/09/2023 01:07 Retic Count 3.5 % (High)?? 11/12/2023 06:39 Retic Count Corrected 1.5 % ()?? 11/12/2023 06:39 Retic Production Index 0.7 % (Low)?? 11/12/2023 06:39 Imm Gran 0.3 % ()?? 11/09/2023 01:07 Abs. Imm Gran 0.0 k/mm3 ()?? 11/09/2023 01:07 ? CARDIAC CK, Total 96 units/L ()?? 11/05/2023 17:45 ? CHEM GENERAL Sodium 136 mmol/L ()?? 11/17/2023 03:07 Potassium 4.2 mmol/L ()?? 11/17/2023 03:07 Chloride 107 mmol/L ()?? 11/17/2023 03:07 Bicarbonate Level 21 mmol/L (Low)?? 11/17/2023 03:07 Anion Gap 8 ()?? 11/17/2023 03:07 Glucose Level 101 mg/dL (High)?? 11/17/2023 03:07 BUN 7 mg/dL ()?? 11/17/2023 03:07 Creatinine-Blood 0.76 mg/dL ()?? 11/17/2023 03:07 Estimated GFR Creatinine 109 ML/MIN/1.73 M2 ()?? 11/17/2023 03:07 Calcium 7.9 mg/dL (Low)?? 11/17/2023 03:07 Phosphorus 3.4 mg/dL ()?? 11/14/2023 23:59 Magnesium 2.0 mg/dL ()?? 11/17/2023 03:07 Protein, Total 4.9 Gm/dL (Low)?? 11/14/2023 23:59 Albumin 2.4 Gm/dL (Low)?? 11/14/2023 23:59 LDH 121 units/L ()?? 11/12/2023 06:39 Alkaline Phosphatase 125 units/L ()?? 11/14/2023 23:59 Lipase 19 units/L ()?? 11/05/2023 17:45 AST (SGOT) 41 units/L (High)?? 11/14/2023 23:59 ALT (SGPT) 26 units/L ()?? 11/14/2023 23:59 Bilirubin, Total 1.3 mg/dL (High)?? 11/14/2023 23:59 Bilirubin, Direct 0.4 mg/dL (High)?? 11/14/2023 23:59 Bilirubin, Indirect 0.9 mg/dL (High)?? 11/14/2023 23:59 Vitamin B12 Level 375 pg/mL ()?? 11/12/2023 06:39 Folic Acid Level 17.7 ng/mL ()?? 11/12/2023 06:39 Lactate 2.2 mmol/L ()?? 11/05/2023 17:45 Iron Level 18 mcg/dL (Low)?? 11/12/2023 06:39 C-Reactive Protein 5.6 mg/dL (High)?? 11/17/2023 03:07 ? COAG INR 1.0 ()?? 11/14/2023 23:59 Protime (PT) 11.1 seconds ()?? 11/14/2023 23:59 ?? HEME OTHER Sed Rate 31 mm/hr (High)?? 11/17/2023 03:07 Hold Lavender Top SPECIMEN DISCARDED AFTER 24 HOURS. ()?? 11/12/2023 06:39 ?? MISC. CHEMISTRY Ammonia, Venous 19 ??mole/L ()?? 11/05/2023 18:16 Hold Gel Top SPECIMEN DISCARDED AFTER 1 WEEK ()?? 11/12/2023 06:39 ?? TOXICOLOGY/TDM Ethanol, Serum or Plasma NONE DETECTED mg/dL ()?? 11/05/2023 17:45 Vancomycin Level, Trough 6.3 mg/L (Low)?? 11/16/2023 00:27 ?? UA/URINALYSIS Appear/Color, Urine YELLOW ()?? 11/05/2023 21:33 Specific [place], Urine 1.010 ()?? 11/05/2023 21:33 pH, Urine 6.5 ()?? 11/05/2023 21:33 Albumin, Urine NEGATIVE ()?? 11/05/2023 21:33 Glucose, Urine NEGATIVE ()?? 11/05/2023 21:33 Ketones, Urine NEGATIVE ()?? 11/05/2023 21:33 Bilirubin, Urine NEGATIVE ()?? 11/05/2023 21:33 Hemoglobin, Urine NEGATIVE ()?? 11/05/2023 21:33 Nitrite, Urine NEGATIVE ()?? 11/05/2023 21:33 Leukocyte, Urine NEGATIVE ()?? 11/05/2023 21:33 Urobilinogen 2 mg/dL (Abnormal)?? 11/05/2023 21:33 WBC's, Urine 2 /HPF ()?? 11/05/2023 21:33 RBC's, Urine 1 /HPF ()?? 11/05/2023 21:33 Bacteria SLIGHT HPF (Abnormal)?? 11/05/2023 21:33 Amorphous Crystals SLIGHT /HPF ()?? 11/05/2023 21:33 Mucus SLIGHT /LPF ()?? 11/05/2023 21:33 Hold Urine Culture Testing available 48 hours from time of collection. ()?? 11/05/2023 21:33 ? URINE OTHER Est Creatinine Clearance 111.43 mL/min ()?? 11/17/2023 03:54 ? VIROLOGY COVID-19 by RT-PCR NEGATIVE ()?? 11/05/2023 22:20 ? Microbiology ?? COVID-19 (Novel Coronavirus), Rapid PCR?? Completed?? Source: Nasal Body Site: Nose Collected Dt/Tm: 11/05/2023 21:36 Last Updated Dt/Tm: 11/05/2023 23:28 ? Vancomycin Level, Trough:??6.3 mg/L??Low ? >35 ??minutes spent on discharge * Mac LOUIE, Alexandra Worthington: PERFORM, SIGN, VERIFY Event Display: Case Management Discharge Plan Authored Date: Patient: GEMA BASSETT Age: 48 years Sex: Male : 1975 Associated Diagnoses: None Author: Alexandra Watts RN Discharge Plan Case Management Discharge Plan : Case Management Discharge Plan Data 11/18/2023 11:07 EDT Discharge Level of Care at Discharge intermediate facility Discharge Nursing Homes/Rehab Facilities [facility] Discharge Transportation Arranged [facility] [address] [place] [address] Discharge Arranged Transport Date/Time 11/18/2023 13:00 Mode of Transportation Arranged Chair [facility] Service Categories #1 Occupational Therapy, Physical Therapy, Residential Service Start Date and Time #1 11/18/2023 13:00 Service Comments #1 You are going to rehab today. * Fabricio LOUIE, Sylvia: PERFORM Mahendra LOUIE, Kaye Worthington: HUE SWANN RN, Kimberly J: HUE SWANN RN, Kimberly J: MODIFY Event Display: Patient Education/Instruction Authored Date: Inpatient Adult Discharge Instructions. [address] [address] Name: GEMA BASSETT : 1975?? Visit: 11/07/2023 14:57?? Current Date: 11/18/2023 11:57 ?? Account: [id number]?? Inpatient Adult Discharge Instructions We would like [...] and their families. Surveys are administered by [employer] ?? If further treatment with your primary care physician or another doctor is recommended, it is important for you to keep the appointment. Call your primary care physician or return to the Emergency Department immediately if your condition worsens, fails to improve, or new symptoms develop. If you need to find a doctor, you can call [facility] Link for a referral at [phone] or toll free at [phone]) or log in to [email or web address].. ?? [facility], in keeping with [facility] guidance, no longer requires face masks [...] a health care sydnie of your choosing. [employer] is a website that allows you to securely view your medical information including your hospital discharge summary, office visit summaries, medications and follow-up visits. You can also request appointments, renew medications, and request access to your medical information using a health care sydnie of your choosing, or just ask a question. You can enroll at [email or web address] or register during your next office visit. You have been discharged from [facility], Patient Care Unit: SW7??. If you have any questions regarding these instructions, including results of studies pending, afteryou leave, please call us and we will be happy to assist you 04/01. [facility] Your Care Team Attending Physician Dominic Abdalla MD?? Consulting Providers Dominic Abdalla MD?? Discharging Providers Dominic Abdalla MD Reason for Your Visit Pt from [facility] with ams and leg pain . Pt also incontinent of urine?? Your Diagnosis ANA LUISA (obstructive sleep apnea) Pancytopenia Alcoholic hepatitis, cirrhosis History of encephalopathy HTN (hypertension) Anxiety Insomnia Infected prosthesis of right hip Anemia, unspecified type Altered mental status Tests Performed Below is a partial list of the tests performed during your hospitalization. You may have had other tests and procedures not included in this list. Please discuss all test results with your provider. AFB Culture w/Smear, Non-Blood?-- Results Pending -- Alcohol Level Alk Phos ALT Ammonia Venous Anaerobic Result Basic Metabolic Panel BUN CBC CBC w/ Differential COVID-19 (Novel Coronavirus), Rapid PCR CPK Total Only Creatinine CRP Electrolytes ESR FOLIC ACID Fungal Culture and Stain, Non Blood?-- Results Pending -- Fungus Culture Reflex Glucose Level Gram Stain Result HOLD GEL TUBE HOLD LAVENDER TUBE IRON Lactate Level LDH Lipase Liver Function Panel Mg Level Phosphorus Level PT (INR) RETICULOCYTE COUNT Tissue Culture Aer/Anaer/Gram Stain Tissue Culture Result Total Bilirubin Type and Screen Urinalysis w/hold for Urine Culture Vancomycin Trough VITAMIN B12 XR C-Arm > 1 Hour XR Chest 2 Views Frontal and Lat XR Femur 2 Views Right You will be contacted within 72 hours with your results. AFB Culture w/Smear, Non-Blood?? Add On Lab Order?? Fungal Culture, Non-Blood (Fungal Culture and Stain, Non Blood)?? Transfuse RBCs?? Primary Care Provider Jovanni BLAS, Jany? Advance Directive Health Care Proxy on File Yes - Health Care Proxy Discharge Vitals Temperature: 98.1 DegF Height: 172 cm Pulse Rate: 73 bpm Weight: 80 kg Respiratory Rate: 20 br/min Body Mass Index:??27.04 kg/m2??High Systolic Blood Pressure: 109 mm Hg Body surface area: 1.96 Diastolic Blood Pressure: 62 mm Hg ?? Oxygen Saturation: 97 % ?? Studies Pending All studies ordered during this hospital stay have been completed unless listed below. Please discuss all pending results with your provider listed above in these instructions. ?? AFB Culture w/Smear, Non-Blood?? Add On Lab Order?? Fungal Culture, Non-Blood (Fungal Culture and Stain, Non Blood)?? Transfuse RBCs?? What to do next Instructions From Your Doctor ?? Orders? 11/18/23 11:16:00 EDT?? Scheduled Follow-Up Appointments Wednesday 1:40 PM EDT ?? With: Ryley LEE, [facility] Where: [facility] [address] [place] [address]- Status: Pending Wednesday 11:00 AM EDT ?? With: Jany Baig DO Where: [facility] [address] [place] [id number]- Status: Pending You Need to Schedule the Following Appointments Follow Up with??Jany Baig DO When:??Within 1 week: call to discuss follow up visit Where: ?? Follow Up with??Jany Baig DO Where: ?? Discharge Medications GEMA BASSETT :1975 Visit Date:11/07/2023 Medications: Please continue your medications until treatment is completed or stopped by your provider. Medications not listed below should be discontinued. Discuss any questions related to medications with your provider. What How Much When Instructions Next Dose New Enoxaparin 40 Milligram Subcutaneous Injection Daily At least 2 weeks. According to ambulation ?? due 11/18 at 9am New Oxycodone (oxyCODONE 5 mg oral tablet) 5 Milligram Oral Every 3 hours as needed for Pain , Moderate Duration: 2 Days Printed Prescription as directed New Vancomycin (vancomycin 1.25 g intravenous injection) 1,500 Milligram IV Piggyback Every 12 hours 6 W from ?? due 11/18 at 3am Unchanged Acamprosate (acamprosate 333 mg oral delayed release tablet) 2 tab(s) Oral 3 times a day Duration: 30 Days due 11/17 at 9pm Unchanged Acetaminophen 650 Milligram Oral Every 4 hours as needed for as needed as directed Unchanged Baclofen (baclofen 10 mg oral tablet) 1 tab(s) Oral 3 times a day due 11/17 at 9pm Unchanged Calcium And Vitamin D Combination (calcium (as carbonate)-vitamin D 500 mg-400 intl unitsoral tablet) 1 tab(s) Oral Daily due 11/18 at 9am Unchanged Docusate 100 Milligram Oral Twice a day due 11/17 at 9pm Unchanged Fluticasone Nasal (fluticasone 50 mcg/ inh nasal spray) 1 spray(s) Nares, Both Twice a day due 11/17 at 9pm Unchanged Folic Acid (folic acid 1 mg oral tablet) 1 tab(s) Oral Daily ^1R1. ?? due 11/18 at 9am Unchanged Furosemide (furosemide 20 mg oral tablet) 1 tab(s) Oral Every other day due 11/19 at 9am Unchanged Gabapentin (gabapentin 300 mg oral capsule) 1 capsule Oral Daily at Bedtime note dose/ frequency change ?? due 11/17 at 9pm Unchanged HydrOXYzine (hydrOXYzine hydrochloride 10 mg oral tablet) 2 tab(s) Oral Twice a day as needed for as needed for anxiety as directed Unchanged Lactulose (lactulose 10 gm/ 15 ml oral syrup) 30 Milliliter Oral 3 times a day due 11/17 at 9pm Unchanged Magnesium Oxide (magnesium oxide 400 mg oral tablet) 1 tab(s) Oral Daily due 11/18 at 9am Unchanged Melatonin (melatonin 3 mg oral tablet) 1 tab(s) Oral Daily at Bedtime due 11/17 at 9pm Unchanged Multivitamin (Tab-A-Jesse oral tablet) 1 tab(s) Oral Daily R1. ?? due 11/18 at 9am Unchanged Pantoprazole (pantoprazole 40 mg oral delayed release tablet) 1 tab(s) Oral Daily ^1R1. ?? due 11/18 at 9am Unchanged Paroxetine (PARoxetine 20 mg oral tablet) 1 tab(s) Oral Daily in the morning due 11/18 at 9am Unchanged Polyethylene Glycol 3350 (polyethylene glycol 3350 oral powder for reconstitution) 17 gram Oral Daily dissolve in 4 to 8 oz of beverage ?? due 11/18 at 9am Unchanged Pyridoxine (Vitamin B6 50 mg oral tablet) 1 tab(s) Oral Daily R1. ?? due 11/18 at 9am Unchanged Rifaximin (Xifaxan 550 mg oral tablet) See instructions 1 tablet By Mouth 2 times a day ?? due 11/17 at 9pm Unchanged Senna 8.6 Milligram Oral Twice a day due 11/17 at 9pm Unchanged Simethicone 80 Milligram Oral 3 times a day due 11/17 at 9pm Unchanged Sodium Biphosphate-Sodium Phosphate (Fleet Enema 19 gm-7 gm rectal enema) 1 Each Per rectum Daily as needed for for constipation as directed Unchanged Sodium Chloride (Saljet Sterile 0.9% irrigation solution) See instructions Use for wound care, delayed wound Right hip. T14.8XXD ?? Unchanged Thiamine (Vitamin B1 100 mg oral tablet) 1 tab(s) Oral Daily due 11/18 at 9am Unchanged Trazodone (traZODone 100 mg oral tablet) 1 tab(s) Oral Daily at Bedtime due 11/17 at 9pm Unchanged Ubiquinone (Coenzyme Q10 100 mg oral capsule) 2 capsule Oral Daily at Bedtime due 11/17 at 9pm ?? What How Much When Comments Stop Taking Amlodipine (amLODIPine 5 mg oral tablet) 1 tab(s) Oral Daily ^1R1. ?? Stop Taking Collagenase Topical (Santyl 250 u/ gm ointment) Stop Taking Diclofenac Topical (diclofenac 1% topical gel) Stop Taking Miscellaneous Rx (BACLOFEN TAB 10MG) Stop Taking Miscellaneous Rx (CALCIUM/ D TAB 500-400) Stop Taking Miscellaneous Rx (FLOWFLEX KIT TEST) Stop Taking Nicotine (Nicotine 2 mg gum) Stop Taking Spironolactone (spironolactone 25 mg oral tablet) 1 tab(s) Oral Daily ^1R2. ?? Prescription Given During Visit Oxycodone (oxyCODONE 5 mg oral tablet) - 5 mg, By Mouth, Every 3 hours, # 7 tablet, 0 Refills?? Laboratory Results Below is a partial list of the most recent Laboratory test results done prior to this discharge. You may have had other tests and procedures not included in this list. Please discuss all test resultswith your provider. Est Creatinine Clearance - 111.43 mL/min (11/17/2023) RBC Available - PT (11/14/2023) RBC Unit ID - [id number] (11/14/2023) Alcohol Level (11/05/2023) ???Ethanol, Serum or Plasma - NONE DETECTED Alk Phos (11/05/2023) ???Alkaline Phosphatase - 134 units/L ALT (11/05/2023) ???ALT (SGPT) - 21 units/L Ammonia Venous (11/05/2023) ???Ammonia, Venous - 19 ??mole/L Anaerobic Result (11/09/2023) ???Anaerobic Culture Isolate 1 - Comment Basic Metabolic Panel (11/17/2023) ???Sodium - 136 mmol/L???Potassium - 4.2 mmol/L???Chloride - 107 mmol/L???Bicarbonate Level - 21 mmol/L???Anion Gap - 8???Glucose Level - 101 mg/dL???BUN - 7 mg/dL???Creatinine-Blood - 0.76 mg/dL???Estimated GFR Creatinine - 109 ML/MIN/1.73 M2???Calcium - 7.9 mg/dL BUN (11/09/2023) ???BUN - 11 mg/dL CBC (11/17/2023) ???WBC - 4.0 k/mm3???RBC - 2.84 m/mm3???Hgb - 8.7 Gm/dL???Hct - 25.7 %???MCV - 90.5 femtoliters???MCH - 30.6 pg???MCHC - 33.9 g/dL???Platelet Count - 103 k/mm3???RDW-SD - 51.6 femtoliters???MPV - 10.4 femtoliters???Nucleated RBC (Automated) - 0.0 #/100 WBC'S???Abs. NRBC - 0.0 k/mm3 CBC w/ Differential (11/09/2023) ???WBC - 3.5 k/mm3???RBC - 3.45 m/mm3???Hgb - 10.3 Gm/dL???Hct - 30.3 %???MCV - 87.8 femtoliters???MCH - 29.9 pg???MCHC - 34.0 g/dL???Platelet Count - 75 k/mm3???RDW-SD - 45.8 femtoliters???MPV - 10.8 femtoliters???Nucleated RBC (Automated) - 0.0 #/100 WBC'S???Abs. NRBC - 0.0 k/mm3???Abs. Neut - 1.3 k/mm3???Abs. Lymph - 1.5 k/mm3???Abs. [place] - 0.5 k/mm3???Abs. Eo - 0.2 k/mm3???Abs. Baso - 0.0 k/mm3???Neut % - 37.0 %???Lymph % - 42.8 %???[place] % - 14.7 %???Eos % - 4.6 %???Baso % - 0.6 %???Imm Gran - 0.3 %???Abs. Imm Gran - 0.0 k/mm3 COVID-19 (Novel Coronavirus), Rapid PCR (11/05/2023) ???COVID-19 by RT-PCR - NEGATIVE CPK Total Only (11/05/2023) ???CK, Total - 96 units/L Creatinine (11/09/2023) ???Creatinine-Blood - 0.69 mg/dL???Estimated GFR Creatinine - 113 ML/MIN/1.73 M2 CRP (11/17/2023) ???C-Reactive Protein - 5.6 mg/dL Electrolytes (11/09/2023) ???Sodium - 139 mmol/L???Potassium - 3.9 mmol/L???Chloride - 108 mmol/L???Bicarbonate Level - 21 mmol/L???Anion Gap - 10 ESR (11/17/2023) ???Sed Rate - 31 mm/hr FOLIC ACID (11/12/2023) ???Folic Acid Level - 17.7 ng/mL Fungus Culture Reflex (11/09/2023) ???Fungus Culture Isolate 1 - Comment Glucose Level (11/05/2023) ???Glucose Level - 99 mg/dL Gram Stain Result (11/09/2023) ???Gram Stain Isolate 1 - Comment???Gram Stain Isolate 2 - No organisms seen HOLD GEL TUBE (11/12/2023) ???Hold Gel Top - SPECIMEN DISCARDED AFTER 1 WEEK HOLD LAVENDER TUBE (11/12/2023) ???Hold Lavender Top - SPECIMEN DISCARDED AFTER 24 HOURS. IRON (11/12/2023) ???Iron Level - 18 mcg/dL Lactate Level (11/05/2023) ???Lactate - 2.2 mmol/L LDH (11/12/2023) ???LDH - 121 units/L Lipase (11/05/2023) ???Lipase - 19 units/L Liver Function Panel (11/14/2023) ???Protein, Total - 4.9 Gm/dL???Albumin - 2.4 Gm/dL???Alkaline Phosphatase - 125 units/L???AST (SGOT) - 41 units/L???ALT (SGPT) - 26 units/L???Bilirubin, Total - 1.3 mg/dL???Bilirubin, Direct - 0.4 mg/dL???Bilirubin, Indirect - 0.9 mg/dL Mg Level (11/17/2023) ???Magnesium - 2.0 mg/dL Phosphorus Level (11/14/2023) ???Phosphorus - 3.4 mg/dL PT (INR) (11/14/2023) ???INR - 1.0???Protime (PT) - 11.1 seconds RETICULOCYTE COUNT (11/12/2023) ???Retic Count - 3.5 %???Retic Count Corrected - 1.5 %???Retic Production Index - 0.7 % Tissue Culture Aer/Anaer/Gram Stain (11/09/2023) ???Gram Stain Result - Final report???Tissue/Biopsy Culture Results - Final report???Anaerobic Cult, Extended Incub - Preliminary report???Tissue Cult Specimen Source - TISSUE Tissue Culture Result (11/09/2023) ???Tissue Cult Isolate 1 - Comment Total Bilirubin (11/05/2023) ???Bilirubin, Total - 1.5 mg/dL Type and Screen (11/12/2023) ???Blood Type - O Negative???Antibody Screen - Negative Urinalysis w/hold for Urine Culture (11/05/2023) ???Appear/Color, Urine - YELLOW???Specific [place], Urine - 1.010???pH, Urine - 6.5???Albumin, Urine - NEGATIVE???Glucose, Urine - NEGATIVE???Ketones, Urine - NEGATIVE???Bilirubin, Urine - NEGATIVE???Hemoglobin, Urine - NEGATIVE???Nitrite, Urine - NEGATIVE???Leukocyte, Urine - NEGATIVE???Urobilinogen - 2 mg/dL???WBC's, Urine - 2 /HPF???RBC's, Urine - 1 /HPF???Bacteria - SLIGHT???Amorphous Crystals - SLIGHT???Mucus - SLIGHT???Hold Urine Culture - Testing available 48 hours from time of collection. Vancomycin Trough (11/16/2023) ???Vancomycin Level, Trough - 6.3 mg/L VITAMIN B12 (11/12/2023) ???Vitamin B12 Level - 375 pg/mL Allergies (NKA means No Known Allergies) NSAIDs Tylenol??(Cirrhosis) aspirin??(Hx GI Bleed) ibuprofen??(Hx of GI Bleed) Problems Active Problems??(26) AC joint derangement?? Alcohol abuse?? Alcoholic hepatitis, cirrhosis?? Anemia?? Anxiety and depression; admission to [facility] in 06/2015?? ED (erectile dysfunction)?? Esophageal varices s/p TIPS?? Gynecomastia, male?? H/o Acute upper GI bleed due to variceal bleed?? H/O: substance abuse; reports sobriety since summer 2015?? Heart murmur, systolic?? History of cellulitis?? History of encephalopathy?? History of substance abuse?? HTN (hypertension)?? Insomnia?? Sherie's Optic neuropathy?? Migraine?? Neuropathy?? Normocytic anemia?? ANA LUISA (obstructive sleep apnea)?? Overweight?? Pancytopenia?? Patellar contusion, seen by [facility] spring 2015?? Postoperative wound infection of right hip?? Vitamin D insufficiency?? Education Materials Below is the list of Educational Leaflet Providered with your Discharge Instructions. WebMD Ignite Patient Education - Cirrhosis?? Web[employer] Patient Education - Lactulose Oral Solution?? [employer] Patient Education - Arthralgia?? Valuables and Belongings I fully understand and agree that [facility] accepts no responsibility for all my personal [...] of Valuable and Belonging List: With patient Disposition of Belongings: Other: no valubles in pre-op 11/08 Date for Pt to Sign Valuables/Belongings: 11/18/23 10:37:00 ?? Valuables & Belongings ?? Clothes Electronic devices Jewelry Monetary Items Personal devices Miscellaneous Medications (Valuables) Valuables at Bedside Pants, Shirt, Shoes Cell phone ? Cane ? Valuables Sent Home ? Valuables Sent to Security ? Other Discharge Information ? Case Management Discharge Plan?? Discharge Plan?? Discharge Agency Information?? Discharge Level of Care at Discharge: intermediate facility Service Start Date and Time #1: 11/18/23 13:00:00 Discharge Transportation Arranged: [facility] [address] [facility] ??[phone] Service Categories #1: Occupational Therapy, Physical Therapy, Residential Mode of Transportation Arranged: [facility] [place] [facility] Comments #1: You are going to rehab today. Discharge Arranged Transport Date/Time: 11/18/23 13:00:00 ?? Discharge Nursing Homes/Rehab Facilities: [facility] ? Pulmonary Rehab Status?? Pulmonary Rehab Discharge Status?? CPAP/BiPAP Mask Type: Pillows CPAP/BiPAP Mask Size: Medium Respiratory Rate: 20 br/min ? Common Emergency Awareness Tips IS [...] are strongly encouraged to quit. Please call [facility] Link at [phone] or [phone] ([phone]) or log in to [email or web address] for referrals to smoking cessation programs. ?? 938 Suicide & Crisis Lifeline is available 04/01 if you or someone you know needs to find a reason to keep living. By calling 993 you'll be connected to a skilled, trained counselor at a crisis center in your area. INPATIENT DISCHARGE INSTRUCTIONS SIGNATURE PAGE CAGEMA WASHBURN Location:[facility] Registration Date and Time:11/07/2023 14:57 EDT Primary Care Physician: Jany Baig DO, Attending Physician: Lianne LEE, [facility], I GEMA BASSETT, have received the above patient education materials/instructions and have verbalized understanding. If ambulance or transport services are being used I further acknowledge being given a choice of service. ?? If you need to contact me, please call me at this number: . Patient/Sock Drier Name: Patient/Sock Drier Signature: Relationship to Patient: Witness Name/Signature: Date: * Tila Cary: PERFORM Event Display: Procedures Invasive Line Authored Date: [id number] Vascular Access Insertion Entered On: 11/16/2023 14:07 EDT Performed On: 11/16/2023 13:59 EDT by Tila Cary Vascular Access Insertion Date of Vascular Access Insertion : 11/16/2023 EDT Procedure Location Vascular Access : SW7 Person recording insertion : Merchandise Planner Merchandise Planner of Vascular Access : Tila Cary Occupation of Vascular Access Merchandise Planner : Registered nurse Was manager of software a member of PICC/IV Team : Yes Tila Cary - 11/16/2023 13:59 EDT Procedural Comments Risk Factors and Labs Reviewed : Yes Anticoagulation Therapy : No Antiplatelet Therapy : No Tila Cary - 11/16/2023 13:59 EDT Was vascular access order placed : Yes Vascular Access Type : Central line Time Out Performed : Yes Time Out Data : Patient identified, Site verified, Procedure verified, Consent signed, RN attendance Reason for Vascular Access Insertion : Medication requires use of vascular access Suspected Vascular Access Infection : No, the access was not exchanged over a guide wire Vascular Access Procedure Check : Consent obtained Hand Hygiene prior to insertion : Yes Maximal sterile barriers used : Mask, Sterile gown, Large sterile full body drape, Sterile gloves, Ultrasound sterile cover, Cap Sterile Field Maintained : Yes Skin Preparation : Chlorhexidine (CHG) Skin Prep dry at first skin puncture : Yes Antimicrobial coated catheter used : No Successful central line placement : Yes Vascular Access Catheter Type : PICC line Vascular Access Insertion Site : Other: LUE basilic vein Vascular Access Insertion Side : Left Vascular Access Catheter Size : 4fr Vascular Access Catheter Length : 44cm Vessel Identified By : Ultrasound Vascular Access Insertion Circumstance : Non-emergent Vascular Access Catheter Securement : Statlock Vascular Access Dressing : Occlusive Follow-up CXR : Not applicable CXR Comment : distal SVC confirmed with Sherlock 3CG technology Tila Cary - 11/16/2023 13:59 EDT DCP GENERIC CODE Suture needles : 0 Clifton : 7 Scalpels : 3 Clamps : 0 Guide Wires : 3 Tila Cary - 11/16/2023 13:59 EDT Complications during Insertion : Other: unable to thread guidewires RUE basilic and brachial veins.Small accidental superficial dermatomy slice under insertion site-pt with tremors and moved arm when Dermotomy attempted due to inablity to insert introducer -SecurePort applied Tolerated CLIP procedure well : Yes Insertion Attempts : 3 Vascular Access Device QA : BARD CTPICC SL PICC 4fr @ 44cm Vascular Access Device Lot Number : [id number] Vascular Access Device Code : [id number] Vascular Access Device Expiration Date : 02/11/2025 EDT Vascular Access Insertion Comments : Mid arm circumference 10cm above AC Fossa-30cm Tila Cary 11/16/2023 13:59 EDT * Event Display: Provider Clarification Note Please click on pdf link to open report * Ariela Ascencio RN: PERFORM Event Display: Discharge/Transfer Note Hospital Authored Date: [id number] Discharge Planning Nursing Entered On: 11/11/2023 10:32 EDT Performed On: 11/11/2023 10:32 EDT by Ariela Ascencio RN Discharge Planning Nursing Anticipated discharge : intermediate facility Ariela Ascencio RN - 11/11/2023 10:32 EDT * Morgan Lamar DO: PERFORM Event Display: Patient Education Leaflets Authored Date: [id number] Cirrhosis ?? [id number] Cirrhosis The liver is found on the [...] any medicine not prescribed. These include any xtxf-ovh-jztngxs medicines, dietary s upplements,??and herbs. Some of [...] for people with liver disease, contact: ??? [facility],?? [email or web address] ??? [facility], [email or web address]/patients [...] yourrectum ?? Last Reviewed Date: 2021 ?? [id number] [employer]. All rights reserved. This information is not intended as a substitute for professional medical care. Always follow your healthcare professional's instructions. ?? * Morgan Lamar DO: PERFORM Event Display: Patient Education Leaflets Authored Date: [id number] Lactulose Oral Solution ?? [id number] Lactulose Oral Solution Brands: Constulose Uses This [...] about all your medicines. Include prescription and beze-avq-hnoiwdsmgdfsmvkx, vitamins, and herbal medicines. ?? Cautions Tell [...] have any questions about this medicine. ?? [email or web address] IMPORTANT NOTE: This document tells you briefly how to take your medicine, but it does not tell youall there is to know about it. Your doctor or pharmacist may give you other documents about your medicine. Please talk to them if you have any questions. Always follow their advice. There is a more complete description of this medicine available in Tongan. Scan this code on your smartphone or tablet or use the web address below. You can also ask your pharmacist for a printout. If you have any questions, please ask your pharmacist. The display and use of this drug information is subject to Terms of Use. Copyright(c) 2023 [employer]. ?? [employer]. All rights reserved. This information is not intended as a substitute for professional medical care. Always follow your healthcare professional's instructions. ?? * Morgan Lamar DO: PERFORM Event Display: Patient Education Leaflets Authored Date: Arthralgia ?? [id number] Arthralgia Arthralgia is the term for pain in or around the joint. It is a symptom, not a disease. This pain may affect 1 or more joints. In some cases, the pain moves from joint to joint. There are many causes for joint pain. These include: ??? Injury ??? Wearing out the joint surface (osteoarthritis) ??? Inflammation of the joint becauseof crystals in the joint fluid (gout) ??? Infection inside the joint ? Inflammation of the fluid-filled sacs around the joint (bursitis) ??? Autoimmune disorders, such as rheumatoid arthritis orlupus ??? Inflammation of chords that attach muscle to bone (tendonitis) Home care ??? Rest the affected joints until your symptoms improve.? Eat a healthy diet, exercise as advised by your healthcare provider, and stay at a healthy weight ??? You may be prescribed pain medicine. If none is prescribed, you may use acetaminophen or ibuprofen to control pain and inflammation. ?? Follow-up care Follow up with your healthcare provider or as advised. ?? When to get medical care Call your healthcare provider right away if any of these occur: ??? Pain,??swelling, or redness of??joint increases ??? Pain that gets worse or comes back after some improvement ??? Pain moves to other joints ??? You can't bear weight on the affected joint? You can't move the affected joint ??? Joint looks deformed ??? New rash appears ??? Fever of??100.4??F (38??C)??or higher, or as advisedby your provider ??? New symptoms appear ?? Last Reviewed Date: 2021 ?? [id number] [employer]. All rights reserved. This information is not intended as a substitute for professional medical care. Always follow your healthcare professional's instructions. ?? Admission evaluation note * Angel Funk MD: PERFORM, MODIFY Event Display: Admission Note Authored Date: [id number] Patient: ??GEMA BASSETT ? Age:??48 Years?Sex:??Male?:??1975?? Chief Complaint/Reason for Consultation Pt from [facility] with ams and leg pain . Pt also incontinent of urine History of Present Illness 48-year-old male with PMH of alcohol use disorder,??alcoholic liver cirrhosis; esophageal varices s/p TIPS; legal blindness; sleep apnea; neuropathy; history of polysubstance abuse; anemia; was brought in from [facility] after patient found to have room unkempt and unhygienic.?? Initiallythere was confusion if patient had altered mental status, but ED spoke with the [facility] home staff, patient has been baseline, but lately patient has been having difficulty caring for himself, overall generalized weakness, spending more time in his room at the facility. -Patient has right hip prosthesis infection, plan for removal of hardware and insertion of antibiotic eduardo on coming Wednesday (11/09/2023), by Dr. Hernandez, currently has antibiotic beads. -Initially ED tried to discharge the patient, but since patient has upcoming surgery, this patient would be difficult, patient being admitted under medicine service for medical management till surgery and subsequent placement. -On my evaluation, patient AO x 4; denied any fevers, chills, abdominal pain or distention, jaundice, diarrhea, nausea, vomiting, dysuria, chest pain, SOB, cough, orthopnea, PND, worsening leg edema,speech changes, focal weakness or sensory changes, seizures. ?? Vitals: Afebrile, HR 70s, RR 18-20, BP 120s/60s, saturating well on room air. ?? Labs: -WBC 3, H/H 12/36, platelets 62 -INR 1.110 days ago -Bicarb 19, normal anion gap 17; creatinine and BUN WNL Review of Systems -Pertinent positives and negative history mentioned in HPI. Objective Vital Signs?? Temperature: 97.9 DegF (11/08/23 04:37:00) Temperature Route: Oral (11/08/23 04:37:00) Pulse Rate: 72 bpm (11/08/23 04:37:00) Respiratory Rate: 18 br/min (11/08/23 04:37:00) Systolic Blood Pressure: 95 mm Hg (11/08/23 04:37:00) Diastolic Blood Pressure:??50 mm Hg??Low (11/08/23 04:37:00) Blood pressure sites: Arm, right (11/08/23 04:37:00) Mean Arterial Pressure: 65 mm Hg (11/08/23 04:37:00) Pulse Pressure: 45 mm Hg (11/08/23 04:37:00) Oxygen Saturation: 99 % (11/08/23 04:37:00) Mode of Delivery (Oxygen): Room air (11/08/23 04:37:00) Early Warning Score: 3 (11/08/23 04:37:55) ? Physical Exam General: Awake, alert, oriented x3. ??Not in acute distress. Following commands appropriately. HEENT: NC/AT, PERRLA, no pallor, no icterus, moist mucous membranes. Neck: Supple, no JVD Respiratory: Clear to auscultation bilaterally. ??No wheezes, rhonchi or crackles appreciated. CVS: Regular rhythm. ??Normal S1-S2 heard. ??No murmurs appreciated. Abdomen: Soft, nondistended, nontender, Normoactive bowel sounds. Neurological: ??Speech slow but??normal. Moving all 4 limbs freely. No obvious gross focal neuro deficit appreciated. Extremities: Warm; b/l DP 2+, PT 2+ ; Trace b/l pedal edema. Assessment/Plan Diagnoses Chronic hip pain ??(M25.559) 1. ??ANA LUISA (obstructive sleep apnea) ??(G47.33) 2. ??Pancytopenia ??(D61.818) 3. ??Alcoholic hepatitis, cirrhosis ??(K70.10) 4. ??History of encephalopathy ??(Z86.69) 5. ??HTN (hypertension) ??(I10) 6. ??Anxiety ??(F41.9) 7. ??Insomnia ??(G47.00) 8. ??Infected prosthesis of right hip ??(T84.51XA) ?? Assessment:??48-year-old male with PMH of alcohol use disorder,??alcoholic liver cirrhosis; esophageal varices s/p TIPS; legal blindness; sleep apnea; neuropathy; history of polysubstance abuse; anemia; was brought in from [facility] after patient found to have room unkempt and unhygienic;??has upcoming??right hip??hardware removal surgery as??currently??right hip prosthesis??infected,??has??antibiotic beads;??being admitted under medicine service. ?? # Right hip prosthesis infection: -Reportedly has antibiotic beads. -Upcoming hardware removal surgery on 11/01/2023; touch base with orthopedic surgery in the morning;patient already had preop assessment done. ?? # Pancytopenia: Likely in setting of??liver cirrhosis,??ongoing infection. ??Continue to monitor. ?? # Alcoholic liver cirrhosis: # Alcohol use disorder: -Continue home acamprosate 666 mg 3 times daily -Continue home Lasix 20 mg once daily, as per electronic 25 mg once daily ?? # History of hepatic encephalopathy: Continue home rifaximin 550 mg twice daily, lactulose ?? # Insomnia: Continue home trazodone # Anxiety: Continue home hydroxyzine # Neuropathy: Continue home gabapentin # HTN: Continue home amlodipine. # ANA LUISA: CPAP ?? DVT prophylaxis: SQ heparin Full code ?? Date of Service: 11/07/2023 I spent a total of 45 minutes, including both [id number] and ejn-muhc-[id number]-face time on the date ofthe encounter, addressing the above diagnoses. Activities performed in this time include chart review, obtaining/reviewing history, performing a medically necessary evaluation, CODE STATUS?? discussion, documentation, charting and counseling, documentation, charting and counseling. ?? Please note: This note has been prepared using voice recognition software ([employer]). As a result errors may occur. When identified these machine engraver errors have been corrected. While every attempt is made to correct errors during dictation, errors may still exist; for any clarifications, pleasereach out to me on Tigerconnent or pager. Histories Allergies Allergies ?(Active and Proposed Allergies [...] effects ? Past Medical History/Problem List Active Problems(26) AC joint derangement Alcohol abuse Alcoholic hepatitis, cirrhosis Anemia Anxiety and depression; admission to [facility] in 06/2015 ED (erectile dysfunction) Esophageal varices s/p TIPS Gynecomastia, male H/o Acute upper GI bleed due to variceal bleed H/O: substance abuse; reports sobriety since summer 2015 Heart murmur, systolic History of cellulitis History of encephalopathy History of substance abuse HTN (hypertension) Insomnia Sherie's Optic neuropathy Migraine Neuropathy Normocytic anemia ANA LUISA (obstructive sleep apnea) Overweight Pancytopenia Patellar contusion, seen by IBRAHIMA spring 2015 Postoperative wound infection of right hip Vitamin D insufficiency ? Past Surgical History TIPS - Transjugular intrahepatic portosystemic shunt: 03/18/15 EGD: 03/14/15 EGD: 11/03/14 Laryngoscopy in 1988 ? Social History Alcohol Details:??Use: Past. ??Frequency: Several times per day. ??Other: 18 beers per day. ??Previous treatment: Inpatient. 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 Exercise Details:??Exercise type: Walking. Home/Environment Details:??Living [...] :30:24<$> Pat. Grandmother: Hypertension Other: Optic neuropathy (maternal aunt,uncle) Mat. Grandmother: Diabetes mellitus type II Other??(multiple family members on mother's side): Sherie's optic atrophy ? Medications Home Medications Acamprosate (acamprosate 333 mg oral delayed release tablet)?2?tab(s)?666?Milligram?By Mouth?3 times a day?for 30?Days Acetaminophen?650?Milligram?By Mouth?Every 4 hours?as needed?as needed Amlodipine (amLODIPine 5 mg oral tablet)?1?tab(s)?By Mouth?Daily?^1R1. Baclofen (baclofen 10 mg oral tablet)?10?Milligram?1?tablet?By Mouth?3 times a day Calcium And Vitamin D Combination (calcium (as carbonate)-vitamin D 500 mg-400 intl units oral tablet)?1?tab(s)?By Mouth?Daily Docusate?100?Milligram?By Mouth?2 times a day Fluticasone Nasal (fluticasone 50 mcg/inh nasal spray)?1?spray(s)?50?Microgram?Nares, Both?2 times a day Folic Acid (folic acid 1 mg oral tablet)?1?tablet?By Mouth?Daily?^1R1. Furosemide (furosemide 20 mg oral tablet)?20?Milligram?1?tablet?By Mouth?Every other day Gabapentin (gabapentin 300 mg oral capsule)?300?Milligram?1?capsule?By Mouth?Daily at bedtime?note dose/frequency change HydrOXYzine (hydrOXYzine hydrochloride 10 mg oral tablet)?2?tab(s)?20?Milligram?By Mouth?2 times a day?as needed?as needed for anxiety Lactulose (lactulose 10 gm/15 ml oral syrup)?30?Milliliter?20?gram?By Mouth?3 times a day Magnesium Oxide (magnesium oxide 400 mg oral tablet)?1?tab(s)?400?Milligram?By Mouth?Daily Melatonin (melatonin 3 mg oral tablet)?1?tab(s)?3?Milligram?By Mouth?Daily at bedtime Multivitamin (Tab-A-Jesse oral tablet)?1?tab(s)?By Mouth?Daily?R1. Pantoprazole (pantoprazole 40 mg oral delayed release tablet)?1?tab(s)?By Mouth?Daily?^1R1. Paroxetine (PARoxetine 20 mg oral tablet)?20?Milligram?1?tablet?By Mouth?Daily Maite Polyethylene Glycol 3350 (polyethylene glycol 3350 oral powder for reconstitution)?17?gram?By Mouth?Daily?dissolve in 4 to 8 oz of beverage Pyridoxine (Vitamin B6 50 mg oral tablet)?1?tablet?By Mouth?Daily?R1. Rifaximin (Xifaxan 550 mg oral tablet)?See Instructions?1 tablet By Mouth 2 times a day Senna?8.6?Milligram?By Mouth?2 times a day Simethicone?80?Milligram?By Mouth?3 times a day Sodium Biphosphate-Sodium Phosphate (Fleet Enema 19 gm-7 gm rectal enema)?1?Each?Rectally?Daily?as needed?for constipation Sodium Chloride (Saljet Sterile 0.9% irrigation solution)?See Instructions?Use for wound care, delayed wound Right hip. T14.8XXD Spironolactone (spironolactone 25 mg oral tablet)?1?tablet?By Mouth?Daily?^1R2. Thiamine (Vitamin B1 100 mg oral tablet)?1?tablet?By Mouth?Daily Trazodone (traZODone 100 mg oral tablet)?100?Milligram?1?tablet?By Mouth?Daily atbedtime Ubiquinone (Coenzyme Q10 100 mg oral capsule)?2?capsule?200?Milligram?By Mouth?Daily at bedtime ? Results Recent Labs No labs resulted between 11/07/2023 00:00 and 11/08/2023 05:04? Microbiology ?? COVID-19 (Novel Coronavirus), Rapid PCR?? Completed?? Source: Nasal Body Site: Nose Collected Dt/Tm: 11/05/2023 21:36 Last Updated Dt/Tm: 11/05/2023 23:28 ? Hospital Progress note * Terra Fishman RN: PERFORM, SIGN, VERIFY Event Display: Progress Note Hospital Authored Date: Patient: GEMA BASSETT Age: 48 years Sex: Male : 1975 Associated Diagnoses: None Author: Terra Fishman RN Findings Problem Related to Alteration in Comfort : Alteration in Comfort/new 11/18/2023 0:00 EDT Alteration in Comfort Related to Disease process, Surgery Goals & Outcomes: Comfort Pt will report acceptable level of comfort & pain control, Pt will state importance of adhering to pain strategy regime, Pt will demonstrate necessary skills to manage pain, Non-verbal indicators will indicate comfort/pain control Interventions Implemented: Comfort Assess pain using appropriate pain scale/tools, Assess aggravating factors & prevent them accordingly, Assess alleviating factors & promote them accordingly BH Goals/Interventions, Comfort Yes Comfort, Problem Start 11/12/2023 9:24 Reviewed plan with, Comfort Patient Patient Progression, Comfort Pt progressing according to plan Comfort, Problem Ongoing Yes . Alteration in Musculoskeletal : Alteration in Musculoskeletal Func/new 11/18/2023 0:00 EDT Alteration in Musculoskeletal Related to Mobility, Orthopedic Procedure, Other: Rhip I+D 11/08 Goals & Outcomes, Musculoskeletal Affected extremity will maintain color/motion/sensation, Pt able to perform ADL's to best of ability, Pt demonstrates precautions/exercise/ transfers per protocol, Pt will ambulate safely with assistive device, Pt will be free from complications of immobility, Pt will demonstrate ability to participate in ADL's, Pt will report acceptable level of comfort/painrelief Interventions, Musculoskeletal Monitor patients ambulation status, monitor Color/Motion/Sensation, Assist with repositioning, Encourage deep breathing & coughing exercises, Notify MD immediately if tissue perfusion deteriorates, Obtain assistive devices as needed, Teach & Encourage use of Incentive spirometer, Teach Pt/caregiver on ADL's & adaptive equipment, Teach Pt/caregiver on exercises, Teach pt/caregiver on use of pain scale, Teach Pt/caregiver complications of immobility, Teach Pt/caregiver techniques to increase mobility, Teach Pt/caregiver on safety precautions BH Goals/Interventions, Musculoskeletal Yes Musculoskeletal, Problem Start 11/09/2023 22:19 Reviewed Plan with, Musculoskeletal Patient Patient Progression, Musculoskeletal Pt progressing according to plan . Evaluation P- Alteration in Comfort/Musculoskeletal I- as above listed intervention E- Patient with R I&D and hardware removal on 11/09/[address] Hernandez. Patient is alert/oriented x3. Lungs sound clear on RA. Denies CP or SOB. Incentive spirometer at bedside using as directed. Patient with hx of sleep apnea, wears CPAP at night. Patient ambulating with 2 assist with walker. Voiding adequate amount of concentrated yellow urine via urinal. Abdomen soft non tender. +BSx4 +flatus per patient. Last BM 11/17/23. R hip with DSD dsg CDI. +CMS +PP +D/P flexion. Patient reporting 5/10 pain. Given PRN Oxycodone 5mg and scheduled Gabapentin,Baclofen and Tylenol with + effect. PICC line to R upperarm intact. Flushes well with +blood return; clamped and capped with green curos when not in use.Patient on Lovenox for DVT prophylaxis. Bed in lowest locked position. Call light and belongings within reach. Patient resting comfortably in bed at this time. All safety precautions in place. Plan of care ongoing.. Discharge Information Pulmonary Rehab Discharge : Pulmonary Rehab Discharge Status 11/17/2023 0:05 EDT CPAP/BiPAP Mask Type Pillows CPAP/BiPAP Mask Size Medium 11/16/2023 4:32 EDT CPAP/BiPAP Mask Type Pillows CPAP/BiPAP Mask Size Small 11/16/2023 2:15 EDT CPAP/BiPAP Mask Type Pillows CPAP/BiPAP Mask Size Small 11/15/2023 22:58 EDT CPAP/BiPAP Mask Type Pillows CPAP/BiPAP Mask Size Small 11/15/2023 4:58 EDT CPAP/BiPAP Mask Type Pillows CPAP/BiPAP Mask Size Medium 11/15/2023 2:54 EDT CPAP/BiPAP Mask Type Pillows CPAP/BiPAP Mask Size Medium 11/14/2023 23:20 EDT CPAP/BiPAP Mask Type Pillows CPAP/BiPAP Mask Size Medium 11/14/2023 3:21 EDT CPAP/BiPAP Mask Type Pillows CPAP/BiPAP Mask Size Medium 11/14/2023 0:10 EDT CPAP/BiPAP Mask Type Pillows CPAP/BiPAP Mask Size Medium 11/13/2023 22:34 EDT CPAP/BiPAP Mask Type Pillows CPAP/BiPAP Mask Size Medium 11/13/2023 3:20 EDT CPAP/BiPAP Mask Type Pillows CPAP/BiPAP Mask Size Medium 11/13/2023 0:16 EDT CPAP/BiPAP Mask Type Pillows CPAP/BiPAP Mask Size Medium Rehabilitation Discharge : Rehab Discharge Index 11/17/2023 8:26 EDT Walker: distance 20-50 11/16/2023 8:27 EDT Walker: distance 10-20 11/15/2023 8:45 EDT Walker: distance 20-50 11/13/2023 8:31 EDT Walker: distance 10-20 * Estela Martinez RN: PERFORM, SIGN, VERIFY Event Display: Progress Note Hospital Authored Date: Patient: GEMA BASSETT Age: 48 years Sex: Male : 1975 Associated Diagnoses: None Author: Estela Martinez RN Findings Problem Related to Alteration in Comfort : Alteration in Comfort/new 11/17/2023 12:32 EDT Alteration in Comfort Related to Disease process, Surgery Goals & Outcomes: Comfort Pt will report acceptable level of comfort & pain control, Pt will state importance of adhering to pain strategy regime, Pt will demonstrate necessary skills to manage pain, Non-verbal indicators will indicate comfort/pain control Interventions Implemented: Comfort Assess pain using appropriate pain scale/tools, Assess aggravating factors & prevent them accordingly, Assess alleviating factors & promote them accordingly Goals/Interventions, Comfort Yes Comfort, Problem Start 11/12/2023 9:24 Reviewed plan with, Comfort Patient Patient Progression, Comfort Pt progressing according to plan Comfort, Problem Ongoing Yes . Alteration in Musculoskeletal : Alteration in Musculoskeletal [facility]/new 11/17/2023 12:32 EDT Alteration in Musculoskeletal Related to Mobility, Orthopedic Procedure, Other: R hip I+D 11/08 Goals & Outcomes, Musculoskeletal Affected extremity will maintain color/motion/sensation, Pt able to perform ADL's to best of ability, Pt demonstrates precautions/exercise/ transfers per protocol, Pt will ambulate safely with assistive device, Pt will be free from complications of immobility, Pt will demonstrate ability to participate in ADL's, Pt will report acceptable level of comfort/painrelief Interventions, Musculoskeletal Monitor patients ambulation status, monitor Color/Motion/Sensation, Assist with repositioning, Encourage deep breathing & coughing exercises, Notify MD immediately if tissue perfusion deteriorates, Obtain assistive devices as needed, Teach & Encourage use of Incentive spirometer, Teach Pt/caregiver on ADL's & adaptive equipment, Teach Pt/caregiver on exercises, Teach pt/caregiver on use of pain scale, Teach Pt/caregiver complications of immobility, Teach Pt/caregiver techniques to increase mobility, Teach Pt/caregiver on safety precautions Goals/Interventions, Musculoskeletal Yes Musculoskeletal, Problem Start 11/09/2023 22:19 Reviewed Plan with, Musculoskeletal Patient Patient Progression, Musculoskeletal Pt progressing according to plan . Narrative/Incidental Patient s/p right hip I&D. Patient A&OX3, VSS, afebrile. Patient with PICC line to the right upper arm, flused and irrigared. Patient denies any chest pain or SOB. I/S, cough and deep breathing encouraged. LS clear in all lobes. (+)BS in all quadrant, abdomen soft, non-tender/non-distended,tolerating diet well, no nausea or emesis, LBM 11/17/2023. Patient voiding adequate amount of concentrated yellow urine in the urinal. Patient with (+)CMS, (+)PP, (+)D/P flexion to BLE. Patient with dsd to the right hip, dressing C/D/I. Patient reporting 4/10 pain to the right hip, axycodone 5mg given with good effect. Patient OOB using the walker to the bathroom with 1-assist. Patent with c-boots on to BLE and lovenox subq for DVT prophylaxic. Bed in the lowest locked position with siderails up, phone, call rivera and belongings within reach for safety. Will continue to monitor patient musculoskeletal status and comfort/pain. . Discharge Information Pulmonary Rehab Discharge : Pulmonary Rehab Discharge Status 11/17/2023 0:05 EDT CPAP/BiPAP Mask Type Pillows CPAP/BiPAP Mask Size Medium 11/16/2023 4:32 EDT CPAP/BiPAP Mask Type Pillows CPAP/BiPAP Mask Size Small 11/16/2023 2:15 EDT CPAP/BiPAP Mask Type Pillows CPAP/BiPAP Mask Size Small 11/15/2023 22:58 EDT CPAP/BiPAP Mask Type Pillows CPAP/BiPAP Mask Size Small 11/15/2023 4:58 EDT CPAP/BiPAP Mask Type Pillows CPAP/BiPAP Mask Size Medium 11/15/2023 2:54 EDT CPAP/BiPAP Mask Type Pillows CPAP/BiPAP Mask Size Medium 11/14/2023 23:20 EDT CPAP/BiPAP Mask Type Pillows CPAP/BiPAP Mask Size Medium 11/14/2023 3:21 EDT CPAP/BiPAP Mask Type Pillows CPAP/BiPAP Mask Size Medium 11/14/2023 0:10 EDT CPAP/BiPAP Mask Type Pillows CPAP/BiPAP Mask Size Medium 11/13/2023 22:34 EDT CPAP/BiPAP Mask Type Pillows CPAP/BiPAP Mask Size Medium 11/13/2023 3:20 EDT CPAP/BiPAP Mask Type Pillows CPAP/BiPAP Mask Size Medium 11/13/2023 0:16 EDT CPAP/BiPAP Mask Type Pillows CPAP/BiPAP Mask Size Medium 11/12/2023 22:18 EDT CPAP/BiPAP Mask Type Pillows CPAP/BiPAP Mask Size Medium 11/12/2023 3:37 EDT CPAP/BiPAP Mask Type Pillows CPAP/BiPAP Mask Size Medium Rehabilitation Discharge : Rehab Discharge Index 11/16/2023 8:27 EDT Walker: distance 10-20 11/15/2023 8:45 EDT Walker: distance 20-50 11/13/2023 8:31 EDT Walker: distance 10-20 * Lianne LEE, Dominic: PERFORM Event Display: Progress Note Hospital Authored Date: Patient: ??GEMA ABSSETT ? Age:??48 Years?Sex:??Male?:??1975?? Subjective No events overnight?? seen at bedside, lab and vitals reviewed?? No chest pain or SOB?? Review of Systems All review of systems negative except above Objective Measurements?? Height: 172 cm (11/18/23) Weight: 80 kg (11/09/23) Dry Weight: 80 kg (11/09/23) Body Mass Index:??27.04 kg/m2??High (11/09/23) ? Vital Signs?? Temperature: 98.1 DegF (11/18/23 07:00:00) Temperature Route: Oral (11/18/23 07:00:00) Pulse Rate: 73 bpm (11/18/23 07:00:00) Respiratory Rate: 20 br/min (11/18/23 08:43:00) Systolic Blood Pressure: 109 mm Hg (11/18/23 07:00:00) Diastolic Blood Pressure: 62 mm Hg (11/18/23 07:00:00) Blood pressure sites: Arm, right (11/18/23 07:00:00) Mean Arterial Pressure: 78 mm Hg (11/18/23 07:00:00) Pulse Pressure: 47 mm Hg (11/18/23 07:00:00) Oxygen Saturation: 97 % (11/18/23 07:00:00) Mode of Delivery (Oxygen): Room air (11/18/23 07:00:00) Early Warning Score: 3 (11/18/23 08:44:24) ? Intake/Output? 11/06 14:57 11/17 07:00 11/16 07:00 11/15 07:00 11/14 07:00 ?? 11/17 10:48 11/17 10:48 11/17 06:59 0605 06:59 11/15 06:59 Intake ? 7347 ?0 ?540 ?840 ? 1320 Output ?82418 ?450 ? 2250 ? 2800 ? 2000 Net Total ? -82539 ? -450 ?-1710 ?-1960 ? -680 ? Urine Count ?7 ?0 ?1 ?1 ?0 ? Physical Exam General?NAD, AAO HEENT?PERRLA, oropharynx clear, moist mucus membranes Pulm?CTA bilaterally, no wheezes/rhonchi/rales CV?RRR, +S1/S2, no murmurs/rubs GI?Soft, nontender, nondistended, no organomegaly, bowel sounds are present Neuro?Moves all extremities MS?no obvious deformity Psych?Mood appropriate to situation?? Rt hip clean dressing _ Inpatient Medications Medications (39) Active SCHEDULED: (26) Acamprosate 333mg EC Tablet (acamprosate 333 mg oral delayed release tablet) ??666 mg, By Mouth, 3 times a day Baclofen 10 mg Tablet (baclofen 10 mg oral tablet) ??10 mg, By Mouth, 3 times a day Calcium Carbonate 500 mg (Calcium 200 mg) Chewable Tablet (calcium carbonate 500 mg (200 mg elemental calcium) oral tablet, chewable) ??500 mg 1 tablet, Chew, 3 times a day Docusate Sodium 100 mg Capsule (Colace sodium 100 mg oral capsule) ??100 mg 1 capsule, By Mouth, 2 times a day Enoxaparin 40 mg Inj (Enoxaparin Inj) ??40 mg 0.4 mL, Subcutaneous Injection, Daily Fluticasone Propionate 50mcg/inh Nasal Pullman (fluticasone 50 mcg/inh nasal spray) ??50 mcg 1 sprays, Nares, Both, 2 times a day Folic Acid 1 mg Tablet (folic acid 1 mg oral tablet) ??1 mg, By Mouth, Daily Folic Acid 1 [...] tablet) ??400 mg, By Mouth, Daily Multivitamin Therapeutic / Minerals Tablet (Multivit Therapeutic/Minerals Tablet) ??1 tablet, By Mouth, Daily NaCL 0.9% Flush 10ml (Flush NaCl 0.9%) ??10 mL, IV Push, Every 8 hours NaCl 0.9% Flush 3ml (NaCL 0.9% Flush) ??3 mL, IV Push, Every 8 hours Pantoprazole 40 mg EC Tablet (pantoprazole 40 mg oral delayed release tablet) ??40 mg, By Mouth, Daily Paroxetine 20 mg Tablet (PARoxetine 20 mg oral tablet) ??20 mg, By Mouth, Daily in AM Pyridoxine 50 mg Tablet (Vitamin B6 50 mg oral tablet) ??50 mg, By Mouth, Daily Rifaximin 550 mg Tab (Xifaxan 550 mg oral tablet) ??550 mg, By Mouth, 2 times a day Senna Tablet (Senna 8.6 mg oral tablet) ??8.6 mg 1 tablet, By Mouth, Every 12 hours Simethicone 80 mg Chewable Tablet (simethicone 80 mg oral tablet, chewable) ??80 mg, Chew, 3 times a day Sodium Chloride 0.9% (0.2 mL) Injection (Sodium Chloride 0.9% Inj) ??4 mL, Topically, 2 times a day Thiamine 100 mg Tablet (Vitamin B1 100 mg oral tablet) ??100 mg, By Mouth, Daily Trazodone 50 mg Tablet (traZODone 50 mg oral tablet) ??50 mg, By Mouth, Daily at bedtime Vancomycin 1250 mg Inj (Vancomycin IVPB) ??1,250 mg, IVPB, Every 12 hours Vitamin B-12 ??1000 mcg Tablet (cyanocobalamin 1000 mcg oral tablet) ??1,000 mcg, By Mouth, Daily CONTINUOUS: (0) PRN: (13) Acetaminophen 325 mg Tablet (Tylenol 325 mg oral tablet) ??650 mg, By Mouth, Every 4 hours Dextromethorphan-Guaifenesin 20 mg-200 mg/10 mL Liqu UD (Robitussin DM Liquid) ??10 mL, By Mouth, Every 4 hours Docusate Sodium 100 mg Capsule (Docusate Sodium Capsule) ??100 mg 1 capsule, By Mouth, 2 times a day Enema Phosphate Laxative Adult 7 g-19 g (Adult Fleet Enema) ??1 each, Rectally, Daily HydrOXYzine HCL 10mg Tablet (hydrOXYzine hydrochloride 10 mg oral tablet) ??20 mg, By Mouth, 2 times a day Melatonin 3 mg Tablet (melatonin 3 mg oral tablet) ??3 mg, By Mouth, Daily at bedtime NaCL 0.9% Flush 10ml (Flush NaCl 0.9% (10mL)) ??10 mL, IV Push, Every 8 hours NaCl 0.9% Flush 3ml (NaCL 0.9% Flush) ??3 mL, IV Push, Every 8 hours NaCl 0.9% Flush 3ml (NaCL 0.9% Flush) ??3 mL, IV Push, Every 8 hours Ondansetron 2mg/mL Inj (2mL Vial) (Ondansetron Inj) ??4 mg, IV Push, Every 6 hours OxyCODONE 5 mg IR Tablet (oxyCODONE 5 mg oral tablet) ??5 mg, By Mouth, Every 3 hours Polyethylene Glycol 17 Gm Powder (MiraLax Powder) ??17 Gm 1 pack/packet, By Mouth, Daily Simethicone 80 mg Chewable Tablet (Simethicone Tablet) ??80 mg, Chew, 3 times a day ? 72 Hour Antibiotic History Active Antibiotics Calendar Day Last Administered First Administered Rifaximin??550 mg, By Mouth, 2 times a day ? 14 11/18/2023 08:43 11/05/2023 23:34 ? Stopped Antibiotics Stop Date/Time Last Administered First Administered Vancomycin??1,250 mg, 166.67 mL/hr, IVPB, Every 12 hours 11/17/2023 15:07 11/17/2023 05:34 11/10/2023 14:47 Ceftriaxone??2 Gm, 100 mL/hr, IVPB, Every 24 hours 11/17/2023 12:48 11/16/2023 15:44 11/10/2023 13:24 ? Results Abnormal Labs No lab data available. ? Assessment/Plan 48-year-old male with PMH of alcohol use disorder,??alcoholic liver cirrhosis; esophageal varices s/p TIPS; legal blindness; sleep apnea; neuropathy; history of polysubstance abuse; anemia; was brought in from [facility] after patient found to have room unkempt and unhygienic;??has upcoming??right hip??hardware removal surgery as??currently??right hip prosthesis??infected,??has??antibiotic beads;??being admitted under medicine service. s/p ??removal of prosthetic joint and antibioticsbed application by orthopedic.? Right hip prosthesis infection: Reportedly has antibiotic beads. s/p ??removal of prosthetic joint and antibiotics bed application by orthopedic Cultures from 11/08--growing staph aureus S/p picc line ?? -Discharge to rehab with plan to stay less than 30 days -Continue levonex for at least 2 weeks. According to ambulation?? ID recs: -Stop ceftriaxone, continue vanco ?? Outpatient Parenteral Antimicrobial Treatment (OPAT) Plan: Indication: femur osteo MRSA Antimicrobials:?? vanco Planned Duration: 6 weeks Start Date:??11/08 Labs: While on IV antimicrobials please follow at least weekly:CBC with diff, BUN, creatinine, vancomycin trough?? ID clinic appt: Requested Comments: there are PO options (doxy or bactrim) if needed ID Office ID Office ?? Ortho recs: - Overall care per primary team - Acute blood loss postoperative anemia ? - Receiving transfusion currently ? - Monitor H&H; further transfusion per primary team - OOB with PT/OT TDWB RLE - DVT prophylaxis: Lovenox - OR cultures as above -??Antibiotics per??ID - Pain control per primary team -??Daily DSD changes, order placed for nursing ? - Asked RN to reach out if there is increased drainage from proximal incision/on proximal bandage - Encourage ice and elevation of right leg; ice directly over lateral right hp as well - Encourage IS/deep breathing - Bowel meds prn constipation -??Upon d/c, pending med clearance, improvement in H&H and final abx plan, will F/U Dr. Hernandez in 2 weeks, [facility] [address] [facility] [address], [place], [place] ?? Anemia Require blood transfusion Pancytopenia: Likely in setting of??liver cirrhosis,??ongoing infection. ??Continue to monitor. ?? # Alcoholic liver cirrhosis: # Alcohol use disorder: -Continue home acamprosate 666 mg 3 times daily -Continue home Lasix 20 mg once daily -Holding Aldactone as blood pressure now ?? # History of hepatic encephalopathy: Continue home rifaximin 550 mg twice daily, lactulose ?? # Insomnia: Continue home trazodone # Anxiety: Continue home hydroxyzine # Neuropathy: Continue home gabapentin # HTN: Hold home amlodipine and??Aldactone with blood pressure low. # ANA LUISA: CPAP ? Consult note * Verito Leblanc MD: PERFORM, MODIFY Event Display: Consultation Note Authored Date: Patient: ??GEMA BASSETT ? Age:??48 Years?Sex:??Male?:??1975?? Reason for Consultation Osteomyelitis Requested by Isabel Gagnon History of Present Illness Mr. Bassett is a 48 yo??M with PMH of IV heroin and cocaine use, tobacco use, alcoholic cirrhosis,??alcohol dependence, esophageal varices s/p TIPS, frequent hepatic encephalopathy on lactulose and rifaximin,??history of intertrochanteric??hip fracture??in May 2022??followed by??hardware infec tion??and right hip osteomyelitis??status post??incision and drainage of deep hip abscess on 03/20/2023??who left AMA??after that hospitalization??but was discharged on doxycycline and rifampin. ??It appears that patient was??lost to follow-up and later followed up with [facility]. I spoke to Dr Manzano who provided some additional history. 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 Imaging showed loosening of hardware and some surrounding lucencies. Patient was given some antibiotics but per patient, he was not receiving any at [facility]. He is now s/p removal of hardware, debridement and placement of an antibiotic eduardo 11/08 Review of Systems Reviewed, neg except above Physical Exam Vitals & Measurements Vital Signs?? Temperature: 99.2 DegF (11/10/23 10:48:00) Temperature Route: Oral (11/10/23 10:48:00) Pulse Rate: 87 bpm (11/10/23 10:48:00) Respiratory Rate: 20 br/min (11/10/23 10:48:00) Systolic Blood Pressure: 135 mm Hg (11/10/23 10:48:00) Diastolic Blood Pressure: 59 mm Hg (11/10/23 10:48:00) Blood pressure sites: Arm, right (11/10/23 10:48:00) Mean Arterial Pressure: 84 mm Hg (11/10/23 10:48:00) Pulse Pressure: 76 mm Hg (11/10/23 10:48:00) Oxygen Saturation: 99 % (11/10/23 10:48:00) Mode of Delivery (Oxygen): Room air (11/10/23 10:48:00) Early Warning Score: 3 (11/10/23 10:48:56) Constitutional: Alert, in no distress. Head: Normocephalic. Eyes: No visible??conjunctival??redness??or drainage Ear, Nose and Throat: Oropharynx clear, mucous membranes moist. Neck: Supple, Full range of motion. Respiratory: No audible wheezing, stridor. Normal vesicular breath sounds CVS: S1, s2 normal, no murmurs Gastrointestinal: Abdomen soft, no tenderness. BS present Neurologic:??No aphasia, moving all extremities??spontaneously Musculoskeletal: surgical dressing + Assessment/Plan 48 yo??M with PMH of IV heroin and cocaine use, tobacco use, alcoholic cirrhosis,??alcohol dependence, esophageal varices s/p TIPS, frequent hepatic encephalopathy on lactulose and rifaximin,??history of intertrochanteric??hip fracture??in May 2022??followed by??hardware infection??and right hip osteomyelitis??status post??incision and drainage of deep hip abscess on 03/20/2023??who left AMA??after that hospitalization??but was discharged on doxycycline and rifampin- unclear if he took antibiotics and developed a chronically draining fistula with outside imaging reportedly shoring loosing hardware and bony erosions concerning of hardware infection. Patient is now s/p removal of hardware, debridement and placement of an antibiotic eduardo 11/08. Intraop small amount of 2-3mm3 purulence noted and hardware was slimy which is concerning of previously grown staph- MSSA and MRSA vs GNRs. Per Dr Manzano, the antibiotic eduardo can be ultimately removed if needed ?? Recommendations - Switch cefazolin to ceftriaxone and vancomycin - Anticipate 6 weeks of therapy - Abx plan pending culture data from OR ?? Case discussed with Dr Hedrick Recommendations communicated to primary team ?? Verito Leblanc MD PGY5 Infectious diseases Fellow Problem List/Past Medical History Ongoing AC joint derangement Alcohol abuse Alcoholic hepatitis, cirrhosis Anemia Anxiety and depression; admission to [facility] in 06/2015 Duodenal Ulcer; resolved ED (erectile dysfunction) Esophageal varices s/p TIPS Gynecomastia, male H/o Acute upper GI bleed due to variceal bleed H/O: substance abuse; reports sobriety since summer 2015 Heart murmur, systolic History of cellulitis History of encephalopathy History of substance abuse HTN (hypertension) Insomnia Sherie's Optic neuropathy Migraine Neuropathy Normocytic anemia ANA LUISA (obstructive sleep apnea) Overweight Pancytopenia Patellar contusion, seen by [facility] spring 2015 Postoperative wound infection of right hip Vitamin D insufficiency Procedure/Surgical History ???TIPS - Transjugular intrahepatic portosystemic shunt (03/18/2015)???EGD (03/14/2015)???EGD (11/03/2014)???Laryngoscopy in 1988 Medications Inpatient acamprosate 333 mg oral delayed release tablet, 666 mg, By Mouth, 3 times a day Adult Fleet Enema, 1 each, Rectally, Daily, PRN amLODIPine 5 mg oral tablet, 5 mg, By Mouth, Daily baclofen 10 mg oral tablet, 10 mg, By Mouth, 3 times a day calcium carbonate 500 mg (200 mg elemental calcium) oral tablet, chewable, 500 mg= 1 tablet, Chew, 3 times a day Ceftriaxone Inj, 2 Gm, IVPB, Every 24 hours Colace sodium 100 mg oral capsule, 100 mg= 1 capsule, By Mouth, 2 times a day D5%/LR 1,000 mL, 1000 mL, IV Infusion Docusate Sodium Capsule, 100 mg= 1 capsule, By Mouth, 2 times a day, PRN Enoxaparin Inj, 40 mg= 0.4 mL, Subcutaneous Injection, Daily fluticasone 50 mcg/inh nasal spray, 50 mcg= [...] oral tablet, 400 mg, By Mouth, Daily melatonin 3 mg oral tablet, 3 mg, By Mouth, Daily at bedtime, PRN MiraLax Powder, 17 Gm= 1 pack/packet, By Mouth, Daily, PRN MorPHINE Inj, 5 mg, IV Push Slowly, Every 3 hours, PRN Multivit Therapeutic/Minerals Tablet, 1 tablet, By Mouth, Daily NaCL 0.9% Flush, 3 mL, IV Push, Every 8 hours NaCL 0.9% Flush, 3 mL, IV Push, Every 8 hours, PRN NaCL 0.9% Flush, 3 mL, IV Push, Every 8 hours, PRN Ondansetron Inj, 4 mg, IV Push, Every 6 hours, PRN oxyCODONE 5 mg oral tablet, 5 mg, By Mouth, Every 3 hours, PRN pantoprazole 40 mg oral delayed release tablet, 40 mg, By Mouth, Daily PARoxetine 20 mg oral tablet, 20 mg, By Mouth, Daily in AM Robitussin DM Liquid, 10 mL, By Mouth, Every 4 hours, PRN Senna 8.6 mg oral tablet, 8.6 mg= 1 tablet, By Mouth, Every 12 hours simethicone 80 mg oral tablet, chewable, 80 mg, Chew, 3 times a day Simethicone Tablet, 80 mg, Chew, 3 times a day, PRN Sodium Chloride 0.9% Inj, 4 mL, Topically, 2 times a day spironolactone 25 mg oral tablet, 25 mg, By Mouth, Daily traZODone 50 mg oral tablet, 50 mg, By Mouth, Daily at bedtime Tylenol 325 mg oral tablet, 650 mg, By Mouth, Every 4 hours, PRN Vancomycin IVPB, 1250 mg, 15 mg/kg, IVPB, Every 12 hours Vitamin B1 100 mg oral tablet, 100 mg, By Mouth, Daily Vitamin B6 50 mg oral tablet, 50 mg, By Mouth, Daily Xifaxan 550 mg oral tablet, 550 mg, By Mouth, 2 times a day Home acamprosate 333 mg oral delayed release tablet, 666 mg= 2 tablet, By Mouth, 3 times a day, 1 refills Acetaminophen, 650 mg, By Mouth, Every 4 hours, PRN amLODIPine 5 mg oral tablet, 1 tablet, By Mouth, Daily BACLOFEN TAB 10MG baclofen 10 mg oral tablet, 10 mg= 1 tablet, By Mouth, 3 times a day, 2 refills calcium (as carbonate)-vitamin D 500 mg-400 intl units oral tablet, 1 tablet, By Mouth, Daily CALCIUM/D TAB 500-400 Coenzyme Q10 100 mg oral capsule, 200 mg= 2 capsule, By Mouth, Daily at bedtime diclofenac 1% topical gel Docusate, 100 mg, By Mouth, 2 times a day Fleet Enema 19 gm-7 gm rectal enema, 1 each, Rectally, Daily, PRN FLOWFLEX KIT TEST fluticasone 50 mcg/inh nasal spray, 50 mcg= 1 sprays, Nares, Both, 2 times a day folic acid 1 mg oral tablet, 1 tablet, By Mouth, Daily, 5 refills furosemide 20 mg oral tablet, 20 mg= 1 tablet, By Mouth, Every other day, 1 refills gabapentin 300 mg oral capsule, 300 mg= 1 capsule, By Mouth, Daily at bedtime, 1 refills hydrOXYzine hydrochloride 10 mg oral tablet, 20 mg= 2 tablet, By Mouth, 2 times a day, PRN lactulose 10 gm/15 ml oral syrup, 20 Gm= 30 mL, By Mouth, 3 times a day magnesium oxide 400 mg oral tablet, 400 mg= 1 tablet, By Mouth, Daily melatonin 3 mg oral tablet, 3 mg= 1 tablet, By Mouth, Daily at bedtime Nicotine 2 mg gum pantoprazole 40 mg oral delayed release tablet, 1 tablet, By Mouth, Daily, 5 refills PARoxetine 20 mg oral tablet, 20 mg= 1 tablet, By Mouth, Daily in AM polyethylene glycol 3350 oral powder for reconstitution, 17 Gm, By Mouth, Daily Saljet Sterile 0.9% irrigation solution, See Instructions, 3 refills Santyl 250 u/gm ointment Senna, 8.6 mg, By Mouth, 2 times a day Simethicone, 80 mg, By Mouth, 3 times a day spironolactone 25 mg oral tablet, 1 tablet, By Mouth, Daily, 5 refills Tab-A-Jesse oral tablet, 1 tablet, By Mouth, Daily traZODone 100 mg oral tablet, 100 mg= 1 tablet, By Mouth, Daily at bedtime Vitamin B1 100 mg oral tablet, 1 tablet, By Mouth, Daily, 3 refills Vitamin B6 50 mg oral tablet, 1 tablet, By Mouth, Daily, 4 refills Xifaxan 550 mg oral tablet, See Instructions, 5 refills Antibiotic History Active Antibiotics Calendar Day Last Administered First Administered Rifaximin??550 mg, By Mouth, 2 times a day ?6 11/10/2023 09:35 11/05/2023 23:34 ? Stopped Antibiotics Stop Date/Time Last Administered First Administered ceFAZolin??1 Gm, IV Push, Every 8 hours 11/10/2023 12:14 11/10/2023 09:36 11/09/2023 16:38 ceFAZolin??1 Gm, IV Push, Every 8 hours 11/09/2023 15:52 11/09/2023 10:35 11/09/2023 10:35 ceFAZolin??2 Gm, IV Push, Once 11/08/2023 08:43 11/08/2023 08:39 11/08/2023 08:39 Allergies NSAIDs Tylenol??(Cirrhosis) aspirin??(Hx GI Bleed) ibuprofen??(Hx of GI Bleed) Social History Alcohol Use: Past. Frequency: Several times per day. Other: 18 beers per day. Previous treatment: Inpatient. Employment/School Status: Unemployed. 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 Exercise Exercise type: Walking. Home/Environment Living [...] virus vaccine, inactivated 04/09/2022 Given Comments : ND: ??[id number] SARS-CoV-2 (COVID-19) mRNA-1273 vaccine 04/08/2021 Recorded influenza [...] vaccine, inactivated 04/29/2017 Given Comments : [04/29/2017] 02880-408-80 influenza virus vaccine, inactivated 04/15/2016 Given tetanus/diphtheria/pertussis, [...] 08/02/2012 Given Tet/diphth/pertussis, acel (oldterm) 08/02/2012 Given * Ryley LEE, [facility]: PERFORM Event Display: Consultation Note Authored Date: I discussed the case with the ID fellow. ??I interviewed and examined the patient. ??I reviewed themicrobiology data. ??I agree with the assessment and plan as documented with the following clarifications. ?? PL: infection with hardware complicating, osteo TDM EtOH cirrhosis ?? plan vanco ceftriaxone renal montiroing f/u cutlures clarify final abx IV vs PO.?? we may recommend SNF for IV abx if patient is agreeable ?? I discussed the plan with the patient _ and all questions were answered to their apparent satisfaction. ?? ID will follow with you Radiology * Event Display: PICC Line IV Insertion Image Authored Date: [id number] Patient Care team information Care Team Personnel Name: Shira Galindo RN Position: [facility] RN Member Role: Primary Care Nurse Name: Estela Martinez RN Position: [facility] [...] Care Nurse Name: Jean Epstein RN Position: [facility] RN Member Role: Primary Care Nurse Name: Maria Esther Craig LPN Position: [facility] RN Member Role: Primary Care Nurse Name: Kaye Comer RN Position: [facility] RN Member Role: Primary Care Nurse Name: Kenyatta Kirby RN Position: [facility] RN Member Role: Primary Care Nurse Name: Andres Pressley RN Position: [facility] RN Member Role: Primary Care Nurse Name: Jany Baig DO Position: [facility] Physician - Primary Care Member Role: PCP Address: Address: [address] [place] [address] [facility] Pediatric [address] Name: Mary Haines RN Position: [facility] [...] Care Nurse Name: Yoselin Jones RN Position: [facility] [...] Care Nurse Name: Eben Villavicencio RN Position: [facility] RN Member Role: Primary Care Nurse Name: Cody Garcia Position: [facility] Associate Professional Member Role: Lifetime Consulting Provider Address: Address: [address] [place] [address]- Name: Paige Nascimento RN Position: [facility] RN Member Role: Primary Care Nurse Name: Sue Combs RN Position: [facility] RN Member Role: Primary Care Nurse Name: Ge Covarrubias RN Position: [facility] RN Member Role: Primary Care Nurse Name: Orin Elmore RN Position: [facility] ED RN W/OE and Tasks Member Role: Primary Care Nurse Name: Allegra Liu RN Position: [facility] AMB Nurse Member Role: Primary Care Nurse Name: Shayan Pandya MD Position: [facility] Renal MD Member Role: Lifetime Consulting Physician Address: Address: [address] [place] [address] [address] [facility], [place] [address]- Name: Kimberley Pittman RN Position: [facility] RN Member Role: Primary Care Nurse Name: Darlene Rodrigez RN Position: [facility] RN Member Role: Primary Care Nurse Name: Alison Helton Position: [facility] RN [...] Care Nurse Name: Terra Fishman RN Position: [facility] RN Member Role: Primary Care Nurse Name: Monica Rowell RN Position: [facility] RN Member Role: Primary Care Nurse Name: Anita Hodges RN Position: [facility] RN Member Role: Primary Care Nurse Name: Jimi Fitzpatrick RN Position: [facility] RN Member Role: Primary Care Nurse Care Team Related Persons Name: MARLEN BASSETT Address: home [address] [place] [id number] Name: MARLEN BASSETT Address: home [address] [place] [address] Name: NICK BASSETT Name: GEMA BASSETT Address: home [address] [place] [address] Name: ELTON CHENG Address: home [address] [place] [id number] Name: LAURO QUEVEDO
--- OUTSIDE RECORDS SUMMARY | 2023-12-15 20:51 | XMS_ITS | Continuity of Care Document ---
Author Organization [facility] Address [address] [place] [address]- Care Team Providers Care Planer Tailer Name Role Phone Jany Baig DO Primary Care Physician [place] [facility] [place]23 [place] 08/13/23 [facility] [address] [place], [place] [address] Allergies, Adverse Reactions, Alerts [...] acel (oldterm) 08/02/12 Give n 1Result Comment: [facility]: [id number] 2Result Comment: [04/29/2017] [id number] 3Admin Note: FLUARIX 4Admin Note: 3 RDINJ 5Admin Note: #2 Medications acamprosate 333 mg oral delayed release tablet 2 tablet = 666 mg, By Mouth, 3 times a day, # 180 tablet, 1 Refills, Maintenance, 07/28/23 11:04:00EST, EC Tablet, [facility], Partial fill upon patient [...] tablet, 2 Refills, Maintenance, 07/28/23 11:06:00 EST, [facility], 175, cm, 07/28/23 9:11:00 EST, Height, 61.3, kg, 07/12/23 23:27:00 EST, Dry Weight Start Date: 07/28/23 Status: Ordered amLODIPine 5 mg oral tablet 1 tablet, By Mouth, Daily, ^1R1., # 30 tablet, 2 Refills, Maintenance, 06/02/23 8:00:00 EST, [facility], 175, cm, 03/22/23 6:50:00 [...] 07/28/23 11:10:00 EST, Route to Pharmacy Electronically, [facility], Partial fill upon patient request if [...] Gm, 12 Refills, Maintenance, 07/28/23 11:06:00 EST, [facility], 28, APPLY TOPICALLY TO AFFECTED AREA(S) [...] Gm, 1 Refills, Maintenance, 07/28/23 12:07:00 EST, [facility], 30, USE 1 SPRAY(S) INTO EACH [...] 07/28/23 12:09:00 EST, Route to Pharmacy Electronically, [facility], 175, cm, 07/28/23 9:11:00 EST, Height, [...] tablet, 3 Refills, Maintenance, 07/28/23 12:10:00 EST, [facility], 175, cm, 07/28/23 9:11:00 EST, Height, 61.3, kg,07/12/23 23:27:00 EST, Dry Weight Start Date: 07/28/23 Status: Ordered lactulose 10 gm/15 ml oral syrup 30 mL = 20 Gm, By Mouth, 3 times a day, for 30 days, # 2,700 mL, 2 Refills, Acute 10/26/23 12:13:00EDT, 07/28/23 12:13:00 EST, Syrup, [facility], Partial fill upon patient request if [...] 60 tablet, 11 Refills, Maintenance,07/28/23 12:09:00 EST, [facility], 175, cm, 07/28/23 9:11:00 EST, Height, [...] tablet, 5 Refills, Maintenance, 07/28/23 12:09:00 EST, [facility], 60, 1 tablet By Mouth Daily [...] 07/28/23 12:11:00 EST, Route to Pharmacy Electronically, [facility], 175, cm, 07/28/23 9:11:00EST, Height, 61.3, [...] 07/28/23 12:12:00 EST, Route to Pharmacy Electronically, [facility], 175, cm, 07/28/23 9:11:00 EST, Height, 61.3, kg, 07/12/23 23:27:00 EST, Dry Weight Start Date: 07/28/23 Status: Ordered spironolactone 25 mg oral tablet 1, tablet, By Mouth, Daily, ^1R2., # 30 tablet, Refills 5, Tot. Refills 5, Maintenance, 04/14/23 12:41:00 EDT, Route to Pharmacy Electronically, [facility], 175, cm, 03/22/23 6:50:00 EDT, Height, 77.5, kg, 03/20/23 11:30:00 EDT, Dry Weight Start Date: 04/14/23 Status: Ordered Tab-A-Jesse oral tablet 1 tablet, By Mouth, Daily, R1., # 30 tablet, 5 Refills, Maintenance, 05/06/23 19:16:00 EST, [facility], 30, TAKE 1 TABLET [...] 02/26/23 10:11:00 EDT, Route to Pharmacy Electronically, [facility], 175, cm, 12/03/22 11:50:00 EDT, Height,84, kg, 02/12/23 11:30:00 EDT, Dry Weight Start Date: 02/26/23 Status: Ordered traZODone 50 mg oral tablet 2, tablet, By Mouth, Daily at bedtime, ^2R4., # 60 tablet, Refills 5, Tot. Refills 5, Maintenance, 07/28/23 12:12:00 EST, Route to Pharmacy Electronically, [facility], 175, cm, 07/28/23 9:11:00 EST, Height, [...] 02/09/23 23:18:00 EDT, Route to Pharmacy Electronically, [facility], 175, cm, 12/03/22 11:50:00 EDT, Height, 88.9, kg, 10/21/22 20:41:00 EDT, Dry Weight Start Date: 02/09/23 Status: Ordered Vitamin B1 100 mg oral tablet 1, tablet, By Mouth, Daily, # 90 tablet, Refills 3, Tot. Refills 3, Maintenance, 07/28/23 12:12:00 EST, Route to Pharmacy Electronically, [facility], 175, cm, 07/28/23 9:11:00 EST, Height, 61.3, kg, 07/12/23 23:27:00 EST, Dry Weight Start Date: 07/28/23 Status: Ordered Vitamin B6 50 mg oral tablet 1, tablet, By Mouth, Daily, R1., # 90 tablet, Refills 4, Maintenance, 11/16/22 13:39:00 EDT, Route to Pharmacy Electronically, [facility], 175, cm, 11/13/22 10:42:00 EDT, Height, 88.9, kg, 10/21/22 20:41:00 EDT, Dry Weight Start Date: 11/16/22 Status: Ordered Vitamin B6 50 mg oral tablet 1, tablet, By Mouth, Daily, R1., # 90 tablet, Refills 4, Tot. Refills 4, Maintenance, 07/28/23 12:11:00 EST, Route to Pharmacy Electronically, [facility], 175, cm, 07/28/23 9:11:00 EST, Height, [...] each, 1 Refills, Maintenance, 07/28/23 14:33:00 EST, [facility], 175, cm, 07/28/23 9:11:00 EST, Height, [...] Care Nurse Name: Malgorzata Marinelli RN Position: [facility] RN Member Role: Primary Care Nurse Name: Joyce Roach RN Position: [facility] ED RN W/OE and Tasks Member Role: Primary Care Nurse Name: Mary Suazo RN Position: [facility] RN Member Role: Primary Care Nurse Name: Lucina Peralta RN Position: [facility] RN Member Role: Primary Care Nurse Name: Maria Esther Craig LPN Position: [facility] RN Member Role: Primary Care Nurse Name: Andres Pressley RN Position: [facility] ED RN W/OE and Tasks Member Role: Primary Care Nurse Name: Jany Baig DO Position: [facility] Physician - Primary Care Member Role: PCP Address: Address: [address] [place] [address] Adult [place] [address]- Name: Kaye Payne RN Position: [facility] RN Member Role: Primary Care Nurse Name: Garima Curry RN Position: [facility] RN Member Role: Primary Care Nurse Name: Malgorzata Austin Position: [facility] RN Member [...] Role: Lifetime Consulting Provider Address: Address: [address] [place] [id number]- Name: Paige Nascimento RN [facility]: [facility] Role: Lifetime Consulting Physician Address: Address: [address] [facility], [place] [address]- Name: Kimberley Pittman RN Position: [facility] RN Member Role: Primary Care Nurse Name: Darlene Rodrigez RN Position: [facility] RN Member Role: Primary Care Nurse Name: Dixie Duke RN Position: [facility] RN Member Role: Primary Care Nurse Name: Kwan Mills RN Position: [facility] ED [...] Persons Name: DUCBRIANWU MARLEN Address: [address] [place] [address] Name: MARLEN CABEZAS Address: [address] [place] [address] Name: NICK CABEZAS Name: GEMA CABEZAS Address: [address] [place] [address] Name: ELTON CHENG Address: home [address] [place] [id number]
--- OUTSIDE RECORDS SUMMARY | 2023-12-15 20:51 | XMS_ITS | Continuity of Care Document ---
Author Organization [facility] Address [address] [place] [address]- Care Team Providers Care Smudger Name Role Phone Jany Baig DO Primary Care Physician Encounter [facility] Date(s): 08/12/21 - 11/19/21 [facility] [address] [place], [place] [address] Attending Physician: Jany Baig DO [...] 03/16/15 Give n influenza virus vaccine, inactivated 9/29/14 Give n influenza virus vaccine, inactivated 2 [...] (oldterm) 08/02/12 Give n 1Result Comment: [04/29/2017] [id number] 2Admin Note: FLUARIX 3Admin Note: 3 RDINJ 4Admin Note: #2 Medications amLODIPine 5 mg oral tablet 5 mg, 1, tablet, By Mouth, Daily, # 30 tablet, Refills 5, Tot. Refills 5, Maintenance, 10/21/21 10:15:00 EDT, Route to Pharmacy Electronically, [facility], Partial fill upon patient request if the prescription is for a schedule II opioid drug.... Start Date: 10/21/21 Status: Ordered Co Q-10 100 mg oral capsule 1 capsule, By Mouth, 4 times a day, # 120 capsule, 6 Refills, [facility], 174, cm, 02/27/2115:17:00 EDT, Height, 81, kg, 02/27/21 14:06:00 EDT, Dry Weight Start Date: 07/08/21 Status: Ordered fluticasone 50 mcg/inh nasal spray See Instructions, USE 1 SPRAY INTO EACH NOSTRIL TWICE A DAY, # 16 Gm, 5 Refills, [facility], 30, USE 1 SPRAY INTO EACH NOSTRIL TWICE A DAY, 174, cm, 07/14/21 8:16:00 EST, Height, 81, kg, 02/27/21 14:06:00 EDT, Dry Weight Start Date: 08/04/21 Status: Ordered folic acid 1 mg oral tablet 1 mg, 1, tablet, By Mouth, Daily, # 90 tablet, Refills 4, Tot. Refills 4, Maintenance, 10/27/21 10:40:00 EDT, Route to Pharmacy Electronically, [facility], Partial fill upon patient request if the prescription is for a schedule II opioid drug.... Start Date: 10/27/21 Stop Date: 01/20/23 Status: Ordered gabapentin 300 mg oral capsule 300 mg, 1, capsule, By Mouth, Daily at bedtime, note dose change, # 90 capsule, Refills 4, Tot. Refills 4, Maintenance, 10/27/21 10:39:00 EDT, Route to Pharmacy Electronically, [facility], Partial fill upon patient request if the prescription... Start Date: 10/27/21 Stop Date: 01/20/23 Status: Ordered hydrOXYzine hydrochloride 25 mg oral tablet 1 TO 2 TABLETS, By Mouth, 3 times a day, PRN NEEDED FOR ANXIETY (VIAL), # 60 tablet, 0 Refills, [facility], 175, cm, 10/27/21 10:11:00 EDT, Height, 87, kg, 09/27/21 21:30:00 EDT, Dry Weight Start Date: 10/29/21 Status: Ordered lactulose 10 gm/15 ml oral syrup See Instructions, TAKE 30ML BY MOUTH THREE TIMES DAILY NEEDED TO ACHEIVE 3-4 BOWL MOVEMENTS PER DAY, # 3,000 mL, 10 Refills, [facility], 30, TAKE 30ML BY MOUTH THREE TIMES DAILY NEEDED TO ACHEIVE 3-4 BOWL MOVEMENTS PER DAY, 174, cm, 02/12... Start Date: 07/02/21 Status: Ordered Lasix 40 mg oral tablet 40 mg, 1, tablet, By Mouth, 2 times a day, # 60 tablet, Refills 1, Tot. Refills 1, Maintenance, 10/21/21 10:15:00 EDT, Route to Pharmacy Electronically, [facility], Partial fill upon patient request if the prescription is for a schedule II opi... Start Date: 10/21/21 Stop Date: 12/20/21 Status: Ordered magnesium oxide 400 mg oral tablet 1 tablet, By Mouth, 2 times a day, # 60 tablet, 0 Refills, [facility], 175, cm, 10/27/21 10:11:00 EDT, Height, [...] Replace Required Details, [facility], 175,cm, 10/27/21 10:11:00 EDT, Height, 87, kg, 09/27/21... Start Date: 10/29/21 Status: Ordered Vitamin B1 100 mg oral tablet 1, tablet, By Mouth, Daily, # 90 tablet, Refills 1, Route to Pharmacy Electronically, [facility], 174, cm, 02/27/21 15:17:00 EDT, Height, 81, kg, 02/27/21 14:06:00 EDT, Dry Weight Start Date: 06/16/21 Status: Ordered Xifaxan 550 mg oral tablet 1 tablet, By Mouth, 2 times a day, # 60 tablet, 1 Refills, [facility], 170, cm, 11/05/21 11:11:00 EDT, Height, [...]
--- OUTSIDE RECORDS SUMMARY | 2023-12-15 20:51 | XMS_ITS | Continuity of Care Document ---
Author Organization [facility] Address [address] [place] [address]- Care Team Providers Care Drug Abuse Worker Name Role Phone Jany Baig DO Primary Care Physician Encounter [facility] Date(s): 08/17/22 - 09/16/22 [facility] [address] [place] [address]- Allergies, Adverse Reactions, Alerts Substance Reaction Severity [...] acel (oldterm) 08/02/12 Give n 1Result Comment: [facility]: [id number] 2Result Comment: [04/29/2017] [id number] 3Admin Note: FLUARIX 4Admin Note: 3 RDINJ 5Admin Note: #2 Medications acamprosate 333 mg oral delayed release tablet 1 tablet = 333 mg, By Mouth, 3 times a day, # 90 tablet, 4 Refills, Maintenance, 09/03/22 14:59:00 EDT, [facility], [facility], Partial fill upon patient request if the prescription is for a schedule II opioid drug., 169, cm, 09/03/22 14:21:00... Start Date: 09/03/22 Status: Ordered amLODIPine 5 mg oral tablet See Instructions, TAKE 1 TABLET BY MOUTH ONCE A DAY^1R1, # 30 tablet, 5 Refills, Maintenance, 05/13/22 16:24:00 EST, [facility], 175, cm, 04/09/22 15:34:00 EDT, Height, 78.3, kg, 12/26/21 19:05:00 EDT, Dry Weight Start Date: 05/13/22 Status: Ordered baclofen 10 mg oral tablet See Instructions, TAKE 1 TABLET BY MOUTH THREE TIMES DAILY, # 90 tablet, Refills 0, Maintenance, 08/07/22 12:26:00 EST, Instructions Replace Required Details, Route to Pharmacy Electronically, [facility], 176, cm, 08/07/22 11:37:00 EST, Height... Start Date: 08/07/22 Status: Ordered Co Q-10 100 mg oral capsule See Instructions, TAKE 1 CAPSULE BY MOUTH FOUR TIMES DAILY, # 120 capsule, 6 Refills, Maintenance, 08/07/22 12:13:00 EST, [facility], 176, cm, 08/07/22 11:37:00 EST, [...] Gm, 11 Refills, Maintenance, 08/07/22 12:12:00 EST, [facility] #[id number], 30, USE 1 SPRAY(S) INTO EACH NOSTRIL TWICE A DAY, 176, cm,08/07/22 11:37:00 EST, Height, 79.8, kg, 07/31/22 2... Start Date: 08/07/22 Status: Ordered folic acid 1 mg oral tablet 1 mg, 1, tablet, By Mouth, Daily, # 90 tablet, Refills 4, Tot. Refills 4, Maintenance, 10/27/21 10:40:00 EDT, Route to Pharmacy Electronically, [facility], Partial fill upon patient request if the prescription is for a schedule II opioid drug.... Start Date: 10/27/21 Stop Date: 01/20/23 Status: Ordered furosemide 20 mg oral tablet 1, tablet, By Mouth, Daily, R1., # 30 tablet, Refills 5, Tot. Refills 5, Maintenance, 09/03/22 14:50:00 EDT, Route to Pharmacy Electronically, [facility], 169, cm, 09/03/22 14:21:00 EDT, Height, 69, kg, 08/16/22 1:04:00 EST, Dry Weight Start Date: 09/03/22 Status: Ordered gabapentin 300 mg oral capsule 300 mg, 1, capsule, By Mouth, 2 times a day, note dose/frequency change, # 180 capsule, Refills 4, Tot. Refills 4, Maintenance, 09/03/22 14:55:00 EDT, Route to Pharmacy Electronically, [facility], 169, cm, 09/03/22 14:21:00 EDT, Height, 69, kg... Start Date: 09/03/22 Stop Date: 11/27/23 Status: Ordered hydrOXYzine hydrochloride 25 mg oral tablet 1 TO 2 TABLETS, By Mouth, Daily at bedtime, PRN NEEDED FOR ANXIETY (VIAL), # 60 tablet, 11 Refills, Maintenance, 03/13/22 8:38:00 EDT, [facility], 175, cm, 01/06/22 10:34:00 EDT, Height, 78.3, kg, 12/26/21 19:05:00 EDT, Dry Weight Start Date: 03/13/22 Status: Ordered lactulose 10 gm/15 ml oral syrup See Instructions, TAKE 30ML BY MOUTH THREE TIMES DAILY NEEDED TO ACHEIVE 3-4 BOWL MOVEMENTS PER DAY, # 3,000 mL, 10 Refills, [facility], 30, 174, cm, 02/27/21 15:17:00 EDT, Height, 81, kg,02/27/21 14:06:00 EDT, Dry Weight Start Date: 07/02/21 Status: Ordered Lidoderm 5% film 1 patch, Topically, Daily, remove patches after 12 hours NSAIDS contraindicated High dose tylenol contraindicated remove patches after 12 hours Nueropathy, # 30 patch, 5 Refills, Maintenance, 09/03/22 16:34:00 EDT, [facility], Partial klaudia... Start Date: 09/03/22 Status: Ordered magnesium oxide 400 mg oral tablet 1 tablet, By Mouth, 2 times a day, # 60 tablet, 11 Refills, Maintenance, 03/13/22 8:37:00 EDT, [facility], 175, cm, 01/06/22 10:34:00 EDT, Height, 78.3, kg, 12/26/21 19:05:00 EDT, Dry Weight Start Date: 03/13/22 Status: Ordered Melatonin 3 mg oral tablet 1 tablet, By Mouth, Daily at bedtime, PRN NEEDED FOR INSOMNIA (PACKAGE IN TRAY)^1R4, # 60 tablet, 5 Refills, Maintenance, 06/12/22 18:11:00 EST, [facility], 60, TAKE 1 TABLET BY [...] 09/03/22 14:53:00 EDT, Route to Pharmacy Electronically, [facility], Partial fill upon patient request if the prescription is for a schedule II opioid drug... Start Date: 09/03/22 Stop Date: 03/02/23 Status: Ordered PHENobarbital 30 mg oral tablet See Instructions, Taper 09/08-Day 1 -90mg Daily Day 2-3-60mg BID Day 4-5 30mg BID, # 15 tablet, 0 Refills, Maintenance, 09/08/22 15:05:00 EDT, [facility], Partial fill upon patient request if the prescription is for a schedule II op... Start Date: 09/08/22 Status: Ordered pyridoxine 50 mg oral tablet 50 mg, 1, tablet, By Mouth, Daily, for 90 days, # 90 tablet, Refills 4, Tot. Refills 4, Acute 01/15/23 11:42:00 EDT, 10/22/21 11:42:00 EDT, Route to Pharmacy Electronically, [facility], Partial fill upon patient request [...] 90 tablet, 9 Refills, 08/07/22 12:27:00 EST, [facility] #[id number], 28, 1tablet By Mouth Daily, 176, cm, 08/07/22 11:37:00 EST, Height, 79.8, kg, 07/31/22 22:40:00 EST, DryWeight Start Date: 08/07/22 Status: Ordered traZODone 50 mg oral tablet 2 tablets, By Mouth, Daily at bedtime, # 60 each, Refills 5, Tot. Refills 5, Maintenance, 09/03/22 17:13:00 EDT, Route to Pharmacy Electronically, [facility], 169, cm, 09/03/22 14:21:00 EDT, Height, 69, kg, 08/16/22 1:04:00 EST, Dry Weight Start Date: 09/03/22 Status: Ordered Vitamin B1 100 mg oral tablet 1, tablet, By Mouth, Daily, # 90 tablet, Refills 3, Maintenance, 03/13/22 8:37:00 EDT, Route to Pharmacy Electronically, [facility], 175, cm, 01/06/22 10:34:00 EDT, Height, 78.3, kg, 12/26/2218:05:00 EDT, Dry Weight Start Date: 03/13/22 Status: Ordered Xifaxan 550 mg oral tablet 1 tablet, By Mouth, 2 times a day, ^1R1,1R4., # 60 tablet, 1 Refills, Maintenance, 06/12/22 18:10:00 EST, [facility], 179, cm, 06/08/22 7:37:00 EST, Height, [...] Roach RN Position: [facility] RN Member Role: Primary Care Nurse Name: Mary Suazo RN Position: [facility] RN Member Role: Primary Care Nurse Name: Andres Pressley RN Position: [facility] RN Member Role: Primary Care Nurse Name: Jany Baig DO Position: [facility] Primary Care Physician Member Role: PCP Address: Address: [address] [place] [address] [facility] [address] Name: Neida Ballard RN Position: [facility] RN Member Role: Primary Care Nurse Name: Kaye Payne RN [facility] Member Role: Lifetime Consulting Provider Address: Address: [address] [place] [address] Name: Ge Covarrubias RN Position: [facility] RN Member Role: Primary Care Nurse Name: Orin Elmore RN Position: [facility] ED RN W/OE and Tasks Member Role: Primary Care Nurse Name: Allegra Liu RN Position: [facility] PCO RN Member Role: Primary Care Nurse Name: Shayan Pandya MD Position: [facility] Renal MD Member Role: Lifetime Consulting Physician Address: Address: [address] [place] [address] [address] [facility] [address] Name: Darlene Rodrigez RN Position: [facility] RN Member Role: Primary Care Nurse Name: Kwan Mills RN Position: [facility] RN Member Role: Primary Care Nurse Name: Dolores Can RN Position: [facility] RN Member Role: Primary Care Nurse Name: Kim Rendon RN Position: [facility] RN Member Role: Primary Care Nurse Name: Monica Rowell RN Position: [facility] RN Member Role: Primary Care Nurse Care Team Related Persons Name: MARLEN CABEZAS Address: [place] [address] Name: MARLEN CABEZAS Address: [address] [address] Name: NICK CABEZAS Name: GEMA CABEZAS Address: [place] [address]
--- OUTSIDE RECORDS SUMMARY | 2023-12-15 20:51 | XMS_ITS | Continuity of Care Document ---
Author Organization [facility] Address [address] [place] [address]- Care Team Providers Care Implement Mechanic Name Role Phone Jany Baig DO Primary Care Physician Encounter [facility] Date(s): 10/28/21 - 11/27/21 [facility] [address] [place] [address]- Allergies, Adverse Reactions, Alerts Substance Reaction Severity [...] (oldterm) 08/02/12 Give n 1Result Comment: [04/29/2017] [id number] 2Admin Note: FLUARIX 3Admin Note: 3 RDINJ 4Admin Note: #2 Medications amLODIPine 5 mg oral tablet 5 mg, 1, tablet, By Mouth, Daily, # 30 tablet, Refills 5, Tot. Refills 5, Maintenance, 10/21/21 10:15:00 EDT, Route to Pharmacy Electronically, [facility], Partial fill upon patient request if the prescription is for a schedule II opioid drug.... Start Date: 10/21/21 Status: Ordered Co Q-10 100 mg oral capsule 1 capsule, By Mouth, 4 times a day, # 120 capsule, 6 Refills, [facility], 174, cm, 02/27/2115:17:00 EDT, Height, 81, kg, 02/27/21 14:06:00 EDT, Dry Weight Start Date: 07/08/21 Status: Ordered fluticasone 50 mcg/inh nasal spray See Instructions, USE 1 SPRAY INTO EACH NOSTRIL TWICE A DAY, # 16 Gm, 5 Refills, [facility], 30, USE 1 SPRAY INTO EACH NOSTRIL TWICE A DAY, 174, cm, 07/14/21 8:16:00 EST, Height, 81, kg, 02/27/21 14:06:00 EDT, Dry Weight Start Date: 08/04/21 Status: Ordered folic acid 1 mg oral tablet 1 mg, 1, tablet, By Mouth, Daily, # 90 tablet, Refills 4, Tot. Refills 4, Maintenance, 10/27/21 10:40:00 EDT, Route to Pharmacy Electronically, [facility], Partial fill upon patient request if the prescription is for a schedule II opioid drug.... Start Date: 10/27/21 Stop Date: 01/20/23 Status: Ordered furosemide 40 mg oral tablet See Instructions, TAKE 1 TABLET BY MOUTH TWICE A DAY, # 60 tablet, Refills 5, Instructions Replace Required Details, Route to Pharmacy Electronically, [facility], 170, cm, 11/12/21 10:02:00 EDT, Height, 78, kg, 11/04/21 12:03:00 EDT, Dry Weight Start Date: 11/25/21 Status: Ordered gabapentin 300 mg oral capsule 300 mg, 1, capsule, By Mouth, Daily at bedtime, note dose change, # 90 capsule, Refills 4, Tot. Refills 4, Maintenance, 10/27/21 10:39:00 EDT, Route to Pharmacy Electronically, [facility], Partial fill upon patient request if the prescription... Start Date: 10/27/21 Stop Date: 01/20/23 Status: Ordered hydrOXYzine hydrochloride 25 mg oral tablet 1 TO 2 TABLETS, By Mouth, 3 times a day, PRN NEEDED FOR ANXIETY (VIAL), # 60 tablet, 0 Refills, [facility], 170, cm, 11/12/21 10:02:00 EDT, Height, 78, kg, 11/04/21 12:03:00 EDT, Dry Weight Start Date: 11/26/21 Status: Ordered lactulose 10 gm/15 ml oral syrup See Instructions, TAKE 30ML BY MOUTH THREE TIMES DAILY NEEDED TO ACHEIVE 3-4 BOWL MOVEMENTS PER DAY, # 3,000 mL, 10 Refills, [facility], 30, TAKE 30ML BY MOUTH THREE TIMES DAILY NEEDED TO ACHEIVE 3-4 BOWL MOVEMENTS PER DAY, 174, cm, 02/12... Start Date: 07/02/21 Status: Ordered magnesium oxide 400 mg oral tablet 1 tablet, By Mouth, 2 times a day, # 60 tablet, 1 Refills, [facility], 170, cm, 11/12/21 10:02:00 EDT, Height, 78, kg, 11/04/21 12:03:00 EDT, Dry Weight Start Date: 11/26/21 Status: Ordered Melatonin 3 mg oral tablet 1 tablet, By Mouth, Daily at bedtime, PRN NEEDED FOR INSOMNIA (PACKAGE IN TRAY), # 60 tablet, 5 Refills, Maintenance, 06/02/21 16:17:00 EST, [facility], 28, 1 tablet By Mouth [...] 10/22/21 11:42:00 EDT, Route to Pharmacy Electronically, [facility], Partial fill upon patient request if the prescription is... Start Date: 10/22/21 Stop Date: 01/15/23 Status: Ordered Tab-A-Jesse oral tablet 1 tablet, By Mouth, Daily, # 90 tablet, 9 Refills, [facility], 28, TAKE 1 TABLET BY [...] 14:18:00 EDT, Instructions Replace Required Details, Route to Pharmacy Electronically, [facility], 170,... Start Date: 11/25/21 Status: Ordered Vitamin B1 100 mg oral tablet 1, tablet, By Mouth, Daily, # 90 tablet, Refills 1, Route to Pharmacy Electronically, [facility], 174, cm, 02/27/21 15:17:00 EDT, Height, 81, kg, 02/27/21 14:06:00 EDT, Dry Weight Start Date: 06/16/21 Status: Ordered Xifaxan 550 mg oral tablet 1 tablet, By Mouth, 2 times a day, # 60 tablet, 1 Refills, [facility], 170, cm, 11/05/21 11:11:00 EDT, Height, [...]
--- OUTSIDE RECORDS SUMMARY | 2023-12-15 20:51 | XMS_ITS | Continuity of Care Document ---
Author Organization [facility] Address [id number] [place] [address]- Care Team Providers Care Mat Gauger Name Role Phone Jany Baig DO Primary Care Physician Encounter [facility] Date(s): 12/26/19 - 01/25/20 [facility] [id number] [place] [address]- [facility] Allergies, Adverse Reactions, Alerts Substance Reaction [...] n 1Admin Note: #2 2Result Comment: [04/29/2017] [id number] 3Admin Note: FLUARIX 4Admin Note: 3 RDINJ Medications baclofen 10 mg oral tablet 10 mg, 1, tablet, By Mouth, 3 times a day, # 90 tablet, Refills 4, Tot. Refills 4, Maintenance, 10/06/19 16:18:00 EDT, Route to Pharmacy Electronically, [facility], 175, cm, 08/24/19 14:14:00EDT, Height, 81.2, kg, 02/04/19 1:40:00 EDT, Dry We... Start Date: 10/06/19 Stop Date: 03/04/20 Status: Ordered chantix 1mg tablet 1 tablet = 1 mg, By Mouth, 2 times a day, with a full glass of water, continue for total of 12 wks,# 56 tablet, 1 Refills, Maintenance, 10/06/19 15:54:00 EDT, Tablet, [facility], 175, cm, 08/24/19 14:14:00 EDT, Height, 81.2, kg, 02/04/19 1:40... Start Date: 10/06/19 Status: Ordered chantix 1mg tablet See Instructions, TAKE 1 TABLET BY MOUTH TWICE A DAY WITH A FULL GLASS OF WATER AND CONTINUE FOR A TOTAL OF 12 WEEKS, # 56 tablet, 0 Refills, Maintenance, 12/29/19 16:43:00 EDT, [facility], 175, cm, 08/24/19 14:14:00 EDT, Height, 81.2, kg, ... Start Date: 12/29/19 Status: Ordered Co Q-10 100 mg oral capsule 1 capsule, By Mouth, 4 times a day, # 120 capsule, 11 Refills, Maintenance, 11/21/19 10:36:00 EDT, [facility]/pharmacy #[id number], 175, cm, 08/24/19 14:14:00 EDT, Height, 81.2, kg, 02/04/19 1:40:00 EDT, Dry Weight Start Date: 11/21/19 Stop Date: 11/15/20 Status: Ordered Engerix-B 20 mcg/mL intramuscular suspension = 20 mcg, Intramuscular, Every 30 days, rpt at 1 and 6 months, # 1 mL, 2 Refills, Maintenance, 11/02/19 9:02:00 EDT, Suspension, [facility]/pharmacy #[id number], 175, cm, 08/24/19 14:14:00 EDT, Height, 81.2, kg, 02/04/19 1:40:00 EDT, Dry Weight Start Date: 11/02/19 Status: Ordered fluticasone 50 mcg/inh nasal spray See Instructions, SPRAY 1 SPRAY INTO EACH NOSTRIL TWICE A DAY, # 16 Gm, 5 Refills, 01/23/20 13:39:00 EDT, [facility]/pharmacy #[id number], 30, SPRAY 1 SPRAY INTO EACH NOSTRIL TWICE A DAY, 175, cm, 08/24/19 14:14:00 EDT, Height, 81.2, kg, 02/04/19 1:40:00 EDT, Dry... Start Date: 01/23/20 Status: Ordered gabapentin 600 mg oral tablet 1 tablet = 600 mg, By Mouth, 4 times a day, to replace prior script, # 120 tablet, 3 Refills, Maintenance, 10/09/19 11:18:00 EDT, Tablet, [facility], 175, cm, 08/24/19 14:14:00 EDT, Height, 81.2, kg, 02/04/19 1:40:00 EDT, Dry Weight Start Date: 10/09/19 Stop Date: 02/06/20 Status: Ordered hydrOXYzine hydrochloride 25 mg oral tablet 1 TO 2 TABLETS, By Mouth, 3 times a day, PRN NEEDED FOR ANXIETY, # 60 tablet, 2 Refills, Maintenance, 12/01/19 13:15:00 EDT, [facility], 175, cm, 08/24/19 14:14:00 EDT, [...] 11/25/20 16:37:00 EDT, 12/01/19 16:37:00 EDT, Syrup, [facility], re sent from 10/04/17, 30... [...] tablet, 4 Refills, Maintenance,10/06/19 16:16:00 EDT, Tablet, [facility], 175, cm, 08/24/19 14:14:00 EDT, Height, 81.2, kg, 02/04/19 1:40:00 EDT, Dry Weight Start Date: 10/06/19 Status: Ordered mupirocin 2% topical ointment See Instructions, APPLY TOPICALLY THREE TIMES DAILY (APPLY A THIN FILM), # 22 Gm, 0 Refills, Acute,[facility], 8, APPLY TOPICALLY THREE TIMES DAILY (APPLY A THIN FILM), 175, cm, 08/24/19 14:14:00 EDT, Height, 81.2, kg, 02/04/19 1:40:00 EDT, D... Start Date: 10/30/19 Status: Ordered mupirocin 2% topical ointment See Instructions, APPLY TOPICALLY THREE TIMES DAILY (APPLY A THIN FILM), # 22 Gm, 0 Refills, Maintenance, 12/29/19 16:43:00 EDT, [facility], 8, APPLY TOPICALLY THREE TIMES [...] tablet, 2 Refills, Maintenance, 01/23/20 13:39:00 EDT, 175,cm, 08/24/19 14:14:00 EDT, Height, 81.2, kg, 02/04/19 1:40:00 EDT, Dry Weight Start Date: 01/23/20 Status: Ordered sertraline 100 mg oral tablet 1 tablet = 100 mg, By Mouth, Daily, combine with 50mg tab to equal 150mg daily, # 90 tablet, 1 Refills, Maintenance, 10/06/19 15:57:00 EDT, [facility], [facility], 175, cm, 08/24/19 14:14:00 EDT,Height, 81.2, kg, 02/04/19 1:40:00 EDT, Dry Weight Start Date: 10/06/19 Status: Ordered sertraline 50 mg oral tablet 1 tablet, By Mouth, Daily, TAKE ALONG WITH A 100MG TABLET to equal 150mg daily, # 90 tablet, 1 Refills, Maintenance, 10/06/19 15:57:00 EDT, [facility], 175, cm, 08/24/19 14:14:00 EDT, Height,81.2, kg, 02/04/19 1:40:00 EDT, Dry Weight Start Date: 10/06/19 Status: Ordered Tab-A-Jesse oral tablet 1 tablet, By Mouth, Daily, # 30 tablet, 11 Refills, Maintenance, 06/16/19 12:42:00 EST, [facility], 30, TAKE 1 TABLET BY [...] Required Details, Route to Pharmacy Electronically, [facility], 175, cm, 08/24/19 14:14:0... Start Date: 09/14/19 Status: Ordered Vitamin B1 100 mg oral tablet 1, tablet, By Mouth, Daily, # 90 tablet, Refills 3, Tot. Refills 3, Maintenance, 09/27/19 8:51:00 EDT, Route to Pharmacy Electronically, [facility], 175, cm, 08/24/19 14:14:00 EDT, Height, 81.2, kg, 02/04/19 1:40:00 EDT, Dry Weight Start Date: 09/27/19 Status: Ordered Xifaxan 550 mg oral tablet 1 tablet, By Mouth, 2 times a day, # 60 tablet, 0 Refills, Maintenance, 10/30/19 16:57:00 EDT, [facility], 175, cm, 08/24/19 14:14:00 EDT, Height, 81.2, kg, 02/04/19 1:40:00 EDT, Dry Weight Start Date: 10/30/19 Status: Ordered Xifaxan 550 mg oral tablet See Instructions, TAKE 1 TABLET BY MOUTH TWICE A DAY, # 60 tablet, 0 Refills, 12/29/19 16:43:00 EDT, [facility], 175, cm, 08/24/19 14:14:00 EDT, [...]
--- OUTSIDE RECORDS SUMMARY | 2023-12-15 20:51 | XMS_ITS | Continuity of Care Document ---
Author Organization [facility] ter Address [address] [place] [id number]- Care Team Providers Care Eng[employer] Name Role Phone Jany Baig DO Primary Care Physician En[place] [facility] [place](s): 09/11/23 - 09/11/[address] [address]- Encounter Diagnosis Alcohol intoxication(Final) - 09/11/23 Fall(Final) - 09/11/23 Discharge Disposition: A-D/C Home Attending Physician: Livier Falk DO Admitting Physician: Livier Falk DO Referring Physician: Not on Staff, Referring [...] Give n 1Result Comment: [facility]: [id number] 2Result Comment: [04/29/2017] [id number] 3Admin Note: FLUARIX 4Admin Note: 3 RDINJ 5Admin Note: #2 Medications acamprosate 333 mg oral delayed release tablet 2 tablet = 666 mg, By Mouth, 3 times a day, # 180 tablet, 1 Refills, Maintenance, 07/28/23 11:04:00EST, EC Tablet, [facility], Partial fill upon patient request if [...] tablet, 2 Refills, Maintenance, 07/28/23 11:06:00 EST, [facility], 175, cm, 07/28/23 9:11:00 EST, Height, 61.3, kg, 07/12/23 23:27:00 EST, Dry Weight Start Date: 07/28/23 Status: Ordered amLODIPine 5 mg oral tablet 1 tablet, By Mouth, Daily, ^1R1., # 30 tablet, 2 Refills, Maintenance, 06/02/23 8:00:00 EST, [facility], 175, cm, 03/22/23 6:50:00 EDT, Height, 77.5, [...] 07/28/23 11:10:00 EST, Route to Pharmacy Electronically, [facility], Partial fill upon patient request if [...] Gm, 12 Refills, Maintenance, 07/28/23 11:06:00 EST, [facility], 28, APPLY TOPICALLY TO AFFECTED AREA(S) [...] Gm, 1 Refills, Maintenance, 07/28/23 12:07:00 EST, [facility], 30, USE 1 SPRAY(S) INTO EACH [...] 07/28/23 12:08:00 EST, Route to Pharmacy Electronically, [facility], 175, cm, 07/28/23 9:11:00 EST, Height, 61.3, kg, 07/12/23 23:27:00 EST, Dry Weight Start Date: 07/28/23 Status: Ordered furosemide 20 mg oral tablet 20 mg, 1, tablet, By Mouth, Every other day, # 30 tablet, Refills 1, Tot. Refills 1, Maintenance, 07/28/23 12:08:00 EST, Route to Pharmacy Electronically, [facility], Partial fill upon patient request if the prescription is for a schedule II... Start Date: 07/28/23 Status: Ordered gabapentin 300 mg oral capsule 300 mg, 1, capsule, By Mouth, Daily at bedtime, note dose/frequency change, # 30 capsule, Refills 1, Tot. Refills 1, Maintenance, 07/28/23 12:09:00 EST, Route to Pharmacy Electronically, [facility], 175, cm, 07/28/23 9:11:00 EST, Height, [...] tablet, 3 Refills, Maintenance, 07/28/23 12:10:00 EST, [facility], 175, cm, 07/28/23 9:11:00 EST, Height, 61.3, kg,07/12/23 23:27:00 EST, Dry Weight Start Date: 07/28/23 Status: Ordered lactulose 10 gm/15 ml oral syrup 30 mL = 20 Gm, By Mouth, 3 times a day, for 30 days, # 2,700 mL, 2 Refills, Acute 10/26/23 12:13:00EDT, 07/28/23 12:13:00 EST, Syrup, [facility], Partial fill upon patient request if [...] 60 tablet, 11 Refills, Maintenance,07/28/23 12:09:00 EST, [facility], 175, cm, 07/28/23 9:11:00 EST, Height, [...] tablet, 5 Refills, Maintenance, 07/28/23 12:09:00 EST, [facility], 60, 1 tablet By Mouth Daily [...] 07/28/23 12:11:00 EST, Route to Pharmacy Electronically, [facility], 175, cm, 07/28/23 9:11:00EST, Height, 61.3, [...] 07/28/23 12:12:00 EST, Route to Pharmacy Electronically, [facility], 175, cm, 07/28/23 9:11:00 EST, Height, 61.3, kg, 07/12/23 23:27:00 EST, Dry Weight Start Date: 07/28/23 Status: Ordered spironolactone 25 mg oral tablet 1, tablet, By Mouth, Daily, ^1R2., # 30 tablet, Refills 5, Tot. Refills 5, Maintenance, 04/14/23 12:41:00 EDT, Route to Pharmacy Electronically, [facility], 175, cm, 03/22/23 6:50:00 EDT, Height, 77.5, kg, 03/20/23 11:30:00 EDT, Dry Weight Start Date: 04/14/23 Status: Ordered Tab-A-Jesse oral tablet 1 tablet, By Mouth, Daily, R1., # 30 tablet, 5 Refills, Maintenance, 05/06/23 19:16:00 EST, [facility], 30, TAKE 1 TABLET [...] 02/26/23 10:11:00 EDT, Route to Pharmacy Electronically, [facility], 175, cm, 12/03/22 11:50:00 EDT, Height,84, kg, 02/12/23 11:30:00 EDT, Dry Weight Start Date: 02/26/23 Status: Ordered traZODone 50 mg oral tablet 2, tablet, By Mouth, Daily at bedtime, ^2R4., # 60 tablet, Refills 5, Tot. Refills 5, Maintenance, 07/28/23 12:12:00 EST, Route to Pharmacy Electronically, [facility], 175, cm, 07/28/23 9:11:00 EST, Height, [...] 02/09/23 23:18:00 EDT, Route to Pharmacy Electronically, [facility], 175, cm, 12/03/22 11:50:00 EDT, Height, 88.9, kg, 10/21/22 20:41:00 EDT, Dry Weight Start Date: 02/09/23 Status: Ordered Vitamin B1 100 mg oral tablet 1, tablet, By Mouth, Daily, # 90 tablet, Refills 3, Tot. Refills 3, Maintenance, 07/28/23 12:12:00 EST, Route to Pharmacy Electronically, [facility], 175, cm, 07/28/23 9:11:00 EST, Height, 61.3, kg, 07/12/23 23:27:00 EST, Dry Weight Start Date: 07/28/23 Status: Ordered Vitamin B6 50 mg oral tablet 1, tablet, By Mouth, Daily, R1., # 90 tablet, Refills 4, Maintenance, 11/16/22 13:39:00 EDT, Route to Pharmacy Electronically, [facility], 175, cm, 11/13/22 10:42:00 EDT, Height, 88.9, kg, 10/21/22 20:41:00 EDT, Dry Weight Start Date: 11/16/22 Status: Ordered Vitamin B6 50 mg oral tablet 1, tablet, By Mouth, Daily, R1., # 90 tablet, Refills 4, Tot. Refills 4, Maintenance, 07/28/23 12:11:00 EST, Route to Pharmacy Electronically, [facility], 175, cm, 07/28/23 9:11:00 EST, Height, [...] each, 1 Refills, Maintenance, 07/28/23 14:33:00 EST, [facility], 175, cm, 07/28/23 9:11:00 EST, Height, [...] Exam Date Time Procedure Performing Provider Status 09/11/23 4:[address] Cervical Spine W/O Contrast Kaci Cabrera; Auth (Verified) Notes: (CT Cervical Spine W/O Contrast) Reason For Exam: Neck trauma, dangerous injury mechanism;Other: RESULT: CT Cervical Spine W/O Contrast CT Head/Brain W/O Contrast, CT Cervical Spine W/O Contrast INDICATION: Hx of Present Illness: Patient from sober home, found outside by staff, ETOH. Per staff, patient fell. Patient denies fall. Denies IS HI, CP, SOB; Reason: Trauma; Clinical Question(s): Hematoma TECHNIQUE: Noncontrast head CT using axial technique was reconstructed in axial and coronal planes.Noncontrast spiral CT through the cervical spine was formatted in 3 planes. Automatic tube modulation was used for the cervical spine and iterative dose reconstruction was used for both the head and cervical spine to optimize scan parameters and image quality. CTDIvol Body: 12.20 mGy, DLP Body: 286 mGy*cm. CTDIvol Head: 41.70 mGy, DLP Head: 672 mGy*cm. COMPARISON: 07/15/2023. FINDINGS: Tools And [employer] Attendant View Findings, Lines and Tubes: None. BRAIN [...] TISSUES: No fractures or suspicious bony lesions. Moderate mucosal thickening of the paranasal sinuses. The mastoid air cells are clear. Visualized orbits and globes are intact. The extracranial soft tissues are unremarkable. CERVICAL SPINE: No fracture. No acute osseous abnormalities. Normal alignment. No locked or perched facet. Mild multilevel degenerative disc space narrowing andend plate irregularity. Prominent anterior endplate osteophytes at C6-C7. OTHER BONES: No acute abnormality. CERVICAL SOFT TISSUES AND LUNG APICES: Normal soft tissues. Visualized lung apices are clear. Normal thyroid. Multiple periapical dental lucencies, suggestive of dental caries. IMPRESSION: No acute abnormality of the head or cervical spine. Multiple dental caries. I have personally reviewed the images and I agree with this report. WSN: [id number] Ordering Physician: Charmaine Covarrubias Dictated By: Tim[Radiology] Gin LEE Dictated Date/Time: 09/11/23 7:09 am Reviewed By: Nelson Vasques MD Signed By: Nelson Vasques MD Signed Date/Time: 09/11/23 7:14 am Transcribed By: MIRNA Transcribed Date/Time: 09/11/23 5:22 am * Exam Date Time Procedure Performing Provider Status 09/11/23 4:[address] Head/Brain W/O Contrast Jackson Cabrera; Auth (Verified) Notes: (CT Head/Brain W/O Contrast) Reason For Exam: Trauma RESULT: CT Head/Brain W/O Contrast CT Head/Brain W/O Contrast, CT Cervical Spine W/O Contrast INDICATION: Hx of Present Illness: Patient from sober home, found outside by staff, ETOH. Per staff, patient fell. Patient denies fall. Denies IS HI, CP, SOB; Reason: Trauma; Clinical Question(s): Hematoma TECHNIQUE: Noncontrast head CT using axial technique was reconstructed in axial and coronal planes.Noncontrast spiral CT through the cervical spine was formatted in 3 planes. Automatic tube modulation was used for the cervical spine and iterative dose reconstruction was used for both the head and cervical spine to optimize scan parameters and image quality. CTDIvol Body: 12.20 mGy, DLP Body: 286 mGy*cm. CTDIvol Head: 41.70 mGy, DLP Head: 672 mGy*cm. COMPARISON: 07/15/2023. FINDINGS: Tools And Parts Attendant View Findings, Lines and Tubes: None. BRAIN [...] TISSUES: No fractures or suspicious bony lesions. Moderate mucosal thickening of the paranasal sinuses. The mastoid air cells are clear. Visualized orbits and globes are intact. The extracranial soft tissues are unremarkable. CERVICAL SPINE: No fracture. No acute osseous abnormalities. Normal alignment. No locked or perched facet. Mild multilevel degenerative disc space narrowing andend plate irregularity. Prominent anterior endplate osteophytes at C6-C7. OTHER BONES: No acute abnormality. CERVICAL SOFT TISSUES AND LUNG APICES: Normal soft tissues. Visualized lung apices are clear. Normal thyroid. Multiple periapical dental lucencies, suggestive of dental caries. IMPRESSION: No acute abnormality of the head or cervical spine. Multiple dental caries. I have personally reviewed the images and I agree with this report. WSN: [id number] Ordering Physician: Charmaine Covarrubias Dictated By: Tim[Radiology] Gin LEE Dictated Date/Time: 09/11/23 7:09 am Reviewed By: Nelson Vasques MD Signed By: Nelson Vasques MD Signed Date/Time: 09/11/23 7:14 am Transcribed By: MIRNA Transcribed Date/Time: 09/11/23 5:22 am Vital Signs Most recent to oldest [Reference Range]: 1 2 3 Oxygen Saturation [94-100 %] 98 % (09/11/23 8:37 AM) 97 % (09/11/23 6:48 AM) 97 % (09/11/23 4:11 AM) Pulse Rate [55-90 bpm] 94 bpm *H* (09/11/23 8:37 AM) 81 bpm (09/11/23 6:48 AM) 88 bpm (09/11/23 4:11 AM) Blood Pressure [90-138/55-84 mm Hg] 125/86mm Hg (09/11/23 8:37 AM) 120/73mm Hg (09/11/23 6:48 AM) 114/69mm Hg (09/11/23 4:11 AM) Respiratory Rate [16-30 br/min] 16 br/min (09/11/23 8:37 AM) 16 br/min (09/11/23 6:48 AM) 16 br/min (09/11/23 4:11 AM) Temperature [96.8-100.4 DegF] 98.2 DegF (09/11/23 4:11 AM) 97.3 DegF (09/11/23 1:53 AM) Mode of Delivery (Oxygen) Room air (09/11/23 8:37 AM) Room air (09/11/23 6:48 AM) Room air (09/11/23 4:11 AM) Temperature Route Oral (09/11/23 4:11 AM) Oral (09/11/23 1:53 AM) Social History Social History Type Response Smoking Status 10 or more cigarette s (1/2 pack or more)/day in last 30 days entered on: 02/04/19 Sex Note * Charmaine Covarrubias MD: PERFORM Event Display: Patient Education Leaflets Authored Date: [id number] Alcohol Intoxication ?? [id number] Alcohol Intoxication Alcohol intoxication is very serious. It occurs when you drink alcohol faster than your liver can break it down. Severe intoxication is a medical emergency. It's also called alcohol overdose or alcohol poisoning. It can lead to . Here are some burkett facts: ??? It can take 10 minutes or more??to start??to??feel the effects of a drink. So it's easy to drink more than you planned. Binge drinking can lead to an alcohol overdose. Binge drinking is having: o5 or more drinks over a short time for men o 4 or more drinks over a short time for women ??? One drink may be more than 1 serving of alcohol. In some cases, a drink can be 2 to 4 servings. This depends on the type of drink. ??? It takes about 1 hour for your body to break down 1 serving of alcohol. If you have more than 1 drink, it can take a few hours or more. ??? People with alcohol abuse disorders are more likely to get alcohol poisoning. But it can happen to anyone who drinks too much alcohol. Even a first-time drinker is at risk. ??? Many things affect how drinks will affect you. These include: o If you've eaten o How fast you drink o Your weight o How much you normally drink (or not)o Medicines you are taking o If you have a chronic disease o If you are male or female o How old you are Symptoms of alcohol intoxication Mild intoxication ??? Feel more relaxed, less tense ??? Slightly slurred speech ??? Sleepiness ??? Poor motor skills Moderate intoxication ??? Changing behavior, aggression, depression ??? Poor judgment ??? Confusion ??? Trouble focusing ??? Poor balance and coordination ??? Worsening slurred speech Severe intoxication ??? Vomiting ??? Seizures ??? Fainting or passing out (unconscious) ??? Cold, clammy skin ??? Slow or irregular breathing ??? Low body temperature (hypothermia) ??? Coma ?? Health effects Alcohol causes health problems.??This can happen after only drinking a little. There is no set number of drinks or amount of alcohol that's too much.??How much you drink at one time affects your health. And so does drinking often. Alcohol affects your whole body in these ways: ??? Brain.??Alcohol can harm parts of the brain that affect your balance, memory, thinking, and feelings. It can cause memory loss, blackouts, depression, agitation, sleep cycle changes, and seizures. These changes may or may not go away. ??? Heart and vascular system.??Alcohol can damage heart muscle. This can cause the heart muscle to weaken and stretch (cardiomyopathy). This can lead to: o Trouble breathing o Irregular heartbeat o Atrial fibrillation o Leg swelling o Heart failure Alcohol also makes the blood vessels stiffen. This causes high blood pressure. All of these problems raise your risk for heart attacks or strokes. ??? Liver.??Alcohol causes fat to build up in the liver. This affects how the liver works. And it raises the risk for hepatitis. This condition leads to belly pain, appetite loss, yellow skin and eyes (jaundice), and bleeding problems. It also leads to harmful changes in the liver. These include??liver fibrosis and cirrhosis. This can affect your ability to fight off infections. These liver changes stop it from removing toxins in your blood. This can cause a brain disease called encephalopathy. ??? Pancreas.??Alcohol can cause inflammation of the pancreas (pancreatitis). It can lead to belly pain, fever, and diabetes. ??? Immune system.??Alcohol weakens your immune system. This makes it harder to fight off infections and colds. You'll also have a higherrisk of some infections. ??? Cancer risk.??Alcohol raises your risk of some types of cancer. They include cancer of the: o Mouth o Esophagus o Pharynx o Larynx o Liver o Breast ? Sexual function.??Alcohol abuse can also lead to sexual problems. There is no safe level of alcohol use for people who are or thinking of getting . Alcohol use in may cause lifelong harm to the baby. So alcohol should be avoided. It can also cause a group of defects called alcohol spectrum disorder. These defects can include physical problems. And also behavior and learning problems. ?? Home care for alcohol intoxication Follow these tips to care for yourself at home: ??? Don't drink any more alcohol. ??? Don't drive??until all effects of the alcohol have worn off. ??? Don't use machinery that can cause injuries. ??? Get lots of rest over the next few days. ??? Drink plenty of water and other drinks that don't have alcohol. ??? Try to eat regular meals. If you have been drinking a lot every day, you may have alcohol withdrawal. Symptoms often last 3 to 4 days. They may include: ??? Nervousness ??? Shakiness ??? Nausea ??? Sweating ??? Sleeplessness They may also include severe, life-threatening symptoms. These are known as delirium tremens (DTs).DTs typically begin between 48 and 96 hours after the last drink and last 1 to 5 days. They include: ??? Seizures ??? Confusion ??? Seeing or hearing things that are not there (hallucinations) Alcohol withdrawal can cause . Call your healthcare provider before you stop drinking. This isespecially important if you've had DTs during past alcohol withdrawals. They may be able to help you with medicine. They can also refer you to an inpatient detox program. Or stay with family or friends who know when to call for medical help and can support you. If you have severe symptoms, call your provider or call 911 for help (see below). ?? Follow-up care These groups can help you and your loved one: ??? Alcoholics Anonymous (A.A.). Gives support through a self-help fellowship. ?? Find A.A. meetings near you at www.aa.org. ??? Al-Anovenkatesh. ?? Gives support to families at www.al-anon.org . Or call 263-530-0643. ??? SMART Recovery ( Self- Management and Recovery Training). A nationwide abstinence-oriented support group for people with addictive issues. This free program is focused on motivation to change, urge control, and living a balanced life. For more information and meetings near you, go to www.[facility].org/ ??? Substance Abuse and Mental Health Services Administration ([facility]) Treatment Barn Worker. Free information on treatment resources in your area at https://findtreatment.gov/. Or call 467-114-5626. Call 911 Call 911 if any of these occur: ??? Trouble breathing or slow irregular breathing ??? Chest pain ??? Sudden weakness on 1 side of your body or sudden trouble speaking ??? Heavy bleeding or vomiting blood ??? Very sleepy or having trouble waking up ??? Fainting ??? Fast heart rate ??? Seizure ?? When to get medical advice Call your healthcare provider right away if any of these occur: ??? Severe shakiness? Fever of100.4??F (38??C) or higher, or as advised by your provider ??? Confusion or hallucinations ??? Painin your upper belly that gets worse ??? Repeated vomiting ?? Last Reviewed Date: 2021 ?? 8199-2421 [employer]. All rights reserved. This information is not intended as a substitute for professional medical care. Always follow your healthcare professional's instructions. ?? Patient Care team information Care Team Personnel Name: Shira Galindo RN Position: [facility] RN Member Role: Primary Care Nurse Name: Lisa Nunez RN Position: [facility] RN Member Role: Primary Care Nurse Name: Alexandra Colmenares RN Position: [facility] [place] RN W/OE and Tasks Member Role: Primary Care Nurse Name: Garima Manzano RN Position: [facility] RN Member Role: Primary Care Nurse Name: Malgorzata Marinelli RN Position: S RN Member Role: Primary Care Nurse Name: Joyce Roach RN Position: [facility] [place] RN W/OE and Tasks Member Role: Primary Care Nurse Name: Mary Suazo RN Position: S RN Member Role: Primary Care Nurse Name: Lucina Peralta RN Position: S RN Member Role: Primary Care Nurse Name: Maria Esther Craig LPN Position: S RN Member Role: Primary Care Nurse Name: Kaye Comer RN Position: [facility] RN Member Role: Primary Care Nurse Name: Andres Pressley RN Position: [facility] ED RN W/OE and Tasks Member Role: Primary Care Nurse Name: Jany Baig DO Position: [facility] Physician - Primary Care Member Role: PCP Address: Address: [address] [place] [address] [facility] [place] [address]- Name: Garima Curry RN Position: [facility] RN Member Role: Primary Care Nurse Name: Malgorzata Austin Position: [facility] RN Member Role: Primary Care Nurse Name: Ibeth Adams RN Position: [facility] RN Member Role: Primary Care Nurse Name: Torrie Hernandez RN Position: [facility] OB RN Member Role: Primary Care Nurse Name: Gretchen Knutson RN Position: [facility] SN RN Member Role: Primary Care Nurse Name: Aislinn Mckee RN Position: [facility] RN Member Role: Primary Care Nurse Name: Ashley Mcelroy Position: [facility] RN Member Role: Primary Care Nurse Name: Ashok Kevin RN Position: [facility] RN Member Role: Primary Care Nurse Name: Cody Garcia Position: [facility] Associate Professional Member Role: [employer] Provider Address: Address: [address] [place] [address]- Name: Paige Nascimento RN Position: [facility] RN Member Role: Primary Care Nurse Name: Ge Covarrubisa RN Position: [facility] RN Member Role: Primary Care Nurse Name: Orin Elmore RN Position: [facility] ED RN W/OE and Tasks Member Role: Primary Care Nurse Name: Allegra Liu RN Position: [facility] AMB Nurse Member Role: Primary Care Nurse Name: Shayan Pandya MD Position: [facility] Renal MD Member Role: [employer] Physician Address: Address: [address] [place] [address] [address] [facility], [place] [address]- Name: Kimberley Pittman RN Position: [facility] RN Member Role: Primary Care Nurse Name: Darlene Rodrigez RN Position: [facility] RN Member Role: Primary Care Nurse Name: Dixie Duke RN Position: [facility] RN Member Role: Primary Care Nurse Name: Kwan Mills RN Position: [facility] ED RN W/OE and Tasks Member Role: Primary Care Nurse Name: Ingrid Verdugo RN Position: [facility] RN Member Role: Primary Care Nurse Name: Monica Rowell RN Position: [facility] RN Member Role: Primary Care Nurse Name: Jimi Fitzpatrick RN Position: [facility] RN Member Role: Primary Care Nurse Care Team Related Persons Name: DUCBRIANWU MARLEN Address: home [address] [place] [id number] Name: MARLEN CABEZAS Address: home [address] [place] [address] Name: NICK CABEZAS Name: GEMA CABEZAS Address: home [address] [place] [address] Name: ELTON CHENG Address: home [address] [place] [id number]
--- OUTSIDE RECORDS SUMMARY | 2023-12-15 20:51 | XMS_ITS | Continuity of Care Document ---
Author Organization [facility] Address [address] [place] [address]- Care Team Providers Care Coordinator Hotels Name Role Phone Jany Baig DO Primary Care Physician [facility] Date[facility]): 05/12/21 - 06/11/21 [facility] [address] [place] [address]- Allergies, Adverse Reactions, Alerts Substance Reaction Severity [...] Refusal Reason influenza virus vaccine, inactivated 03/01/20 Nikhil rded [...] (oldterm) 08/02/12 Give n 1Result Comment: [04/29/2017] [id number] 2Admin Note: FLUARIX 3Admin Note: 3 RDINJ 4Admin Note: #2 Medications baclofen 10 mg oral tablet 1, tablet, By Mouth, 3 times a day, # 90 tablet, Refills 0, Route to Pharmacy Electronically, [facility], 174, cm, 02/27/21 15:17:00 EDT, Height, 81, kg, 02/27/21 14:06:00 EDT, Dry Weight Start Date: 05/12/21 Status: Ordered chantix 1mg tablet 1 tablet, By Mouth, 2 times a day, # 56 tablet, 0 Refills, Acute, 11/22/20 16:13:00 EDT, [facility], 178, cm, 11/12/20 15:32:00 EDT, Height, 84.9, kg, 08/31/20 1:07:00 EDT, Dry Weight Start Date: 11/22/20 Status: Ordered Co Q-10 100 mg oral capsule See Instructions, TAKE 1 CAPSULE BY MOUTH FOUR TIMES DAILY, # 120 capsule, 7 Refills, Maintenance, [facility], 178, cm, 10/22/20 13:17:00 EDT, Height, [...] DAY, # 16 Gm, 5 Refills, Maintenance, [facility], 30, USE 1 SPRAY INTO EACH NOSTRIL TWICE A DAY, 178, cm, 01/07/21 17:59:00 EDT, Height, 81.4, kg, 12/03/20 13:52:00 EDT, Dry Weight Start Date: 01/17/21 Status: Ordered gabapentin 600 mg oral tablet 1 tablet, By Mouth, 4 times a day, # 120 tablet, 0 Refills, [facility], 174, cm, 02/27/21 15:17:00 EDT, Height, 81, kg, 02/27/21 14:06:00 EDT, Dry Weight Start Date: 05/12/21 Status: Ordered hydrOXYzine hydrochloride 25 mg oral tablet 1 TO 2 TABLETS, By Mouth, 3 times a day, PRN NEEDED FOR ANXIETY (VIAL), # 60 tablet, 5 Refills, Maintenance, 06/02/21 16:17:00 EST, [facility], 174, cm, 02/27/21 15:17:00 EDT, Height, 81, kg, 02/27/21 14:06:00 EDT, Dry Weight Start Date: 06/02/21 Status: Ordered Melatonin 3 mg oral tablet 1 tablet, By Mouth, Daily at bedtime, PRN NEEDED FOR INSOMNIA (PACKAGE IN TRAY), # 60 tablet, 5 Refills, Maintenance, 06/02/21 16:17:00 EST, [facility], [facility], 1 tablet By Mouth Daily at bedtime,PRN: NEEDED FOR INSOMNIA (PACKAGE IN TRAY), 17... Start Date: 06/02/21 Status: Ordered OXcarbazepine 150 mg oral tablet [...] EDT, Dry Weight Start Date: 04/16/21 Status: Ordered sertraline 100 mg oral tablet 1 tablet = 100 mg, By Mouth, Daily, combine with 50mg tab to equal 150mg daily, # 90 tablet, 1 Refills, Maintenance, 10/06/19 15:57:00 EDT, Tablet, [facility], 175, cm, 08/24/19 14:14:00 EDT,Height, 81.2, kg, 02/04/19 1:40:00 EDT, Dry Weight Start Date: 10/06/19 Status: Ordered sertraline 50 mg oral tablet 1 tablet, By Mouth, Daily, TAKE ALONG WITH A 100MG TABLET to equal 150mg daily, # 90 tablet, 1 Refills, Maintenance, 10/06/19 15:57:00 EDT, [facility], 175, cm, 08/24/19 14:14:00 EDT, Height,81.2, [...] 30 tablet, 10 Refills, Maintenance, [facility], 28, TAKE 1 TABLET BY MOUTH ONCE A DAY, 175, cm, 04/02/20 0:35:00 EDT, Height, 100, kg, 04/02/20 0:35:00 EDT, Dry Weight Start Date: 07/18/20 Status: Ordered tranexamic acid 650 mg oral tablet 1 tablet = 650 mg, By Mouth, Daily, # 21 tablet, 0 Refills, Maintenance, 10/22/20 17:52:00 EDT, Tablet, [facility]/pharmacy #[id number], Partial fill upon patient request if the prescription is for a schedule II opioid drug., 178, cm, 10/22/20 13:17:00 EDT, Height... Start Date: 10/22/20 Status: Ordered traZODone 50 mg oral tablet See Instructions, TAKE 1 TO 2 TABLETS BY MOUTH AT BEDTIME (ONE DOSE IN VIAL), # 60 tablet, Refills 5, Instructions Replace Required Details, Route to Pharmacy Electronically, [facility], 174,cm, 02/11/21 12:09:00 EDT, Height, 86.6, kg, ... Start Date: 02/15/21 Status: Ordered Vitamin B1 100 mg oral tablet 1, tablet, By Mouth, Daily, # 90 tablet, Refills 2, Tot. Refills 0, Acute, 09/05/20 17:32:00 EDT, Route to Pharmacy Electronically, [facility], 178, cm, 08/31/20 11:25:00 EDT, Height, 84.9, kg, 08/31/20 1:07:00 EDT, Dry Weight Start Date: 09/05/20 Status: Ordered Xifaxan 550 mg oral tablet 1 tablet, By Mouth, 2 times a day, # 60 tablet, 0 Refills, Maintenance, 04/16/20 14:45:00 EST, [facility]/pharmacy #[id number], 175, cm, 04/02/20 0:35:00 EDT, [...]
--- OUTSIDE RECORDS SUMMARY | 2023-12-15 20:51 | XMS_ITS | Continuity of Care Document ---
Author Organization [facility] Address [address] [place] [address]- Care Team Providers Care Web Press Operator Apprentice Name Role Phone Jany Baig DO Primary Care Physician [facility] Date[facility]): 07/16/20 - 08/15/20 [facility] [address] [place] [address]- Allergies, Adverse Reactions, Alerts Substance Reaction Severity [...] n 1Admin Note: #2 2Result Comment: [04/29/2017] [id number] 3Admin Note: FLUARIX 4Admin Note: 3 RDINJ Medications baclofen 10 mg oral tablet 10 mg, 1, tablet, By Mouth, 3 times a day, pt needs to schedule appt, # 90 tablet, Refills 0, Tot. Refills 0, Maintenance, 07/18/20 17:30:00 EST, Route to Pharmacy Electronically, [facility],175, cm, 04/02/20 0:35:00 EDT, Height, 100, kg, ... Start Date: 07/18/20 Stop Date: 08/17/20 Status: Ordered chantix 1mg tablet 1 tablet, By Mouth, 2 times a day, for 12 week(s), neeeds to schedule appt, # 56 tablet, 0 Refills,Acute 09/18/20 11:11:00 EDT, 06/26/20 11:11:00 EST, [facility], 175, cm, 04/02/20 0:35:00 EDT, Height, [...] 16 Gm, 5 Refills, 07/09/20 11:38:00 EST, [facility], 30, SPRAY 1 SPRAY INTO EACH NOSTRIL TWICE A DAY, 175, cm, 04/02/20 0:35:00 EDT, Height, 100, kg, 04/02/20 0:35:00 EDT, Dry We... Start Date: 07/09/20 Status: Ordered gabapentin 600 mg oral tablet 1 tablet, By Mouth, 4 times a day, # 120 tablet, 0 Refills, Maintenance, 08/07/20 12:03:00 EST, [facility], [facility], cm, 04/02/20 0:35:00 EDT, Height, 100, kg, 04/02/20 0:35:00 EDT, Dry Weight Start Date: 08/07/20 Status: Ordered hydrOXYzine hydrochloride 25 mg oral tablet 1 TO 2 TABLETS, By Mouth, 3 times a day, PRN NEEDED FOR ANXIETY (VIAL), pt needs to schedule appt, # 60 tablet, 1 Refills, Maintenance, 07/18/20 17:31:00 EST, [facility], 175, cm, 200:35:00 EDT, Height, 100, kg, 04/02/20 0:35:00 EDT,... Start Date: 07/18/20 Status: Ordered lactulose 10 gm/15 ml oral syrup 30 mL = 20 Gm, By Mouth, 3 times a day, PRN Other, for 30 days, PRN to acheive 3-4 BMs per day fillin prefilled syringes, # 3,000 mL, 11 Refills, Acute 11/25/20 16:37:00 EDT, 12/01/19 16:37:00 EDT, Syrup, [facility], [facility] 10/04/17, 30... Start [...] tablet, 4 Refills, Maintenance,07/18/20 17:30:00 EST, Tablet, [facility], 175, cm, 04/02/20 0:35:00 EDT, Height, [...] THIN FILM), # 22 Gm, 0 Refills, Acute,[facility], 8, APPLY TOPICALLY THREE TIMES DAILY [...] Maintenance, 10/06/19 15:57:00 EDT, Tablet, [facility], 175, cm, 08/24/19 14:14:00 EDT,Height, 81.2, kg, 02/04/19 1:40:00 EDT, Dry Weight Start Date: 10/06/19 Status: Ordered sertraline 50 mg oral tablet 1 tablet, By Mouth, Daily, TAKE ALONG WITH A 100MG TABLET to equal 150mg daily, # 90 tablet, 1 Refills, Maintenance, 10/06/19 15:57:00 EDT, [facility], 175, cm, 08/24/19 14:14:00 EDT, Height,81.2, [...] tablet, 1 Refills, Maintenance, 05/21/20 9:35:00 EST, [facility], 1 tablet By Mouth Daily, 175, cm, 04/02/20 0:35:00 EDT, Height, 100, kg, 04/02/20 0:35:00 EDT, Dry Weight Start Date: 05/21/20 Status: Ordered Tab-A-Jesse oral tablet See Instructions, TAKE 1 TABLET BY MOUTH ONCE A DAY, # 30 tablet, 10 Refills, Maintenance, [facility], 28, TAKE 1 TABLET BY MOUTH [...] Details, Route to Pharmacy Electronically, [facility], 175, cm, 04/02/20 0:35:00 EDT, Height, 100,... Start Date: 08/07/20 Status: Ordered Vitamin B1 100 mg oral tablet 1, tablet, By Mouth, Daily, # 90 tablet, Refills 3, Tot. Refills 3, Maintenance, 09/27/19 8:51:00 EDT, Route to Pharmacy Electronically, [facility], 175, cm, 08/24/19 14:14:00 EDT, Height, [...]
--- OUTSIDE RECORDS SUMMARY | 2023-12-15 20:51 | XMS_ITS | Continuity of Care Document ---
Author Organization [facility] Address [address] [place] [id number]- Care Team Providers Care Internet And E Business Project Manager Name Role Phone Jany Baig DO Primary Care Physician [facility]s): 01/13/22 - 02/12/22 [facility] [address] [place] [id number]- [place] Allergies, Adverse Reactions, Alerts Substance Reaction [...] (oldterm) 08/02/12 Give n 1Result Comment: [04/29/2017] [id number] 2Admin Note: FLUARIX 3Admin Note: 3 RDINJ 4Admin Note: #2 Medications acetaminophen 500 mg oral tablet 1 tablet, By Mouth, 4 times a day, PRN NEEDED FOR PAIN, MAX 4, PER DAY (VIAL., # 50 tablet, 0 Refills, [facility], 175, cm, 01/06/22 10:34:00 EDT, Height, 78.3, kg, 12/26/21 19:05:00 EDT, Dry Weight Start Date: 01/28/22 Status: Ordered amLODIPine 5 mg oral tablet 5 mg, 1, tablet, By Mouth, Daily, # 30 tablet, Refills 5, Tot. Refills 5, Maintenance, 10/21/21 10:15:00 EDT, [facility], Partial fill upon patient request if the prescription is for a schedule II opioid drug.... Start Date: 10/21/21 Status: Ordered Co Q-10 100 mg oral capsule 1 capsule, By Mouth, 4 times a day, # 120 capsule, 6 Refills, [facility], 174, cm, 02/27/2115:17:00 EDT, Height, 81, kg, 02/27/21 14:06:00 EDT, Dry Weight Start Date: 07/08/21 Status: Ordered Compression Stockings See Instructions, # 4 each, Refills 2, Tot. Refills 2, Maintenance, surgical, calf length 20-30 mm Hg M79.89 M79.606, 01/06/22 10:58:00 EDT, Supply Start Date: 01/06/22 Status: Ordered fluticasone 50 mcg/inh nasal spray See Instructions, USE 1 SPRAY INTO EACH NOSTRIL TWICE A DAY, # 16 Gm, 5 Refills, [facility], 30, USE 1 SPRAY INTO EACH NOSTRIL TWICE A DAY, 174, cm, 07/14/21 8:16:00 EST, Height, 81, kg, 02/27/21 14:06:00 EDT, Dry Weight Start Date: 08/04/21 Status: Ordered folic acid 1 mg oral tablet 1 mg, 1, tablet, By Mouth, Daily, # 90 tablet, Refills 4, Tot. Refills 4, Maintenance, 10/27/21 10:40:00 EDT, Route to Pharmacy Electronically, [facility], Partial fill upon patient request if the prescription is for a schedule II opioid drug.... Start Date: 10/27/21 Stop Date: 01/20/23 Status: Ordered furosemide 20 mg oral tablet 1, tablet, By Mouth, Daily, # 30 tablet, Refills 0, Route to Pharmacy Electronically, [facility], 175, cm, 01/06/22 10:34:00 EDT, Height, 78.3, kg, 12/26/21 19:05:00 EDT, Dry Weight Start Date: 01/21/22 Status: Ordered hydrOXYzine hydrochloride 25 mg oral tablet 1 TO 2 TABLETS, By Mouth, 3 times a day, PRN NEEDED FOR ANXIETY (VIAL), # 60 tablet, 0 Refills, [facility], 175, cm, 01/06/22 10:34:00 EDT, Height, 78.3, kg, 12/26/21 19:05:00 EDT, Dry Weight Start Date: 01/28/22 Status: Ordered lactulose 10 gm/15 ml oral syrup See Instructions, TAKE 30ML BY MOUTH THREE TIMES DAILY NEEDED TO ACHEIVE 3-4 BOWL MOVEMENTS PER DAY, # 3,000 mL, 10 Refills, [facility], 30, TAKE 30ML BY MOUTH THREE TIMES DAILY NEEDED TO ACHEIVE 3-4 BOWL MOVEMENTS PER DAY, 174, cm, 02/12... Start Date: 07/02/21 Status: Ordered lidocaine 0.5% topical gel 1 application, Topically, 3 times a day, # 120 Gm, 0 Refills, Acute 12/30/22 17:23:00 EDT, 12/30/2216:23:00 EDT, Gel, [facility], Partial fill upon patient request if the prescription is fora schedule II opioid drug., 1 application Topically... Start Date: 12/30/21 Stop Date: 12/30/22 Status: Ordered Lidoderm 5% film 1 patch, Topically, Daily, remove patches after 12 hours NSAIDS contraindicated High dose tylenol contraindicated, # 30 patch, 5 Refills, Maintenance, 12/26/21 9:33:00 EDT, [facility], Partial fill upon patient request if the prescription i... Start Date: 12/26/21 Status: Ordered magnesium oxide 400 mg oral tablet 1 tablet, By Mouth, 2 times a day, # 60 tablet, 0 Refills, [facility], 175, cm, 01/06/22 10:34:00 EDT, Height, 78.3, kg, 12/26/21 19:05:00 EDT, Dry Weight Start Date: 01/21/22 Status: Ordered Melatonin 3 mg oral tablet 1 tablet, By Mouth, Daily at bedtime, PRN NEEDED FOR INSOMNIA (PACKAGE IN TRAY), # 60 tablet, 5 Refills, Maintenance, 06/02/21 16:17:00 EST, [facility], 28, 1 tablet [...] Date: 10/21/21 Stop Date: 04/19/22 Status: Ordered potassium chloride 20 mEq oral tablet, extended release 2 tablet = 40 mEq, By Mouth, Daily, # 60 tablet, 1 Refills, Maintenance, 01/28/22 10:17:00 EDT, ER Tablet, [facility], Partial fill upon patient request if the prescription is for a schedule II opioid drug., 175, cm, 01/06/22 10:34:00 EDT, Hei... Start Date: 01/28/22 Stop Date: 03/29/22 Status: Ordered pyridoxine 50 mg oral tablet 50 mg, 1, tablet, By Mouth, Daily, for 90 days, # 90 tablet, Refills 4, Tot. Refills 4, Acute 01/15/23 11:42:00 EDT, 10/22/21 11:42:00 EDT, Route to Pharmacy Electronically, [facility], Partial fill upon [...] Daily, # 90 tablet, 9 Refills, [facility], 28, TAKE 1 TABLET BY MOUTH ONCE A DAY, 174, cm, 07/14/21 8:16:00 EST, Height, 81, kg, 02/27/21 14:06:00 EDT, Dry Weight Start Date: 07/22/21 Status: Ordered traZODone 50 mg oral tablet See Instructions, TAKE 1 TO 2 TABLETS BY MOUTH AT BEDTIME (ONE DOSE IN VIAL), # 60 tablet, Refills 0, Instructions Replace Required Details, Route to Pharmacy Electronically, [facility], 175,cm, 01/06/22 10:34:00 EDT, Height, 78.3, kg, ... Start Date: 01/30/22 Status: Ordered traZODone 50 mg oral tablet See Instructions, TAKE 2-3 TABLETS BY MOUTH AT BEDTIME (ONE DOSE IN VIAL), # 90 tablet, Refills 5, Tot. Refills 5, Maintenance, 12/26/21 9:21:00 EDT, Instructions Replace Required Details, Route to Pharmacy Electronically, [facility], 170, cm,... Start Date: 12/26/21 Status: Ordered Vitamin B1 100 mg oral tablet 1, tablet, By Mouth, Daily, # 90 tablet, Refills 0, Route to Pharmacy Electronically, [facility], 170, cm, 11/12/21 10:02:00 EDT, Height, 78, kg, 11/04/21 12:03:00 EDT, Dry Weight Start Date: 12/24/21 Status: Ordered Xifaxan 550 mg oral tablet 1 tablet, By Mouth, 2 times a day, # 60 tablet, 2 Refills, [facility], 175, cm, 01/06/22 10:34:00 EDT, Height, [...] days entered on: 02/04/19 Sex Care Team Personnel Name: Jany Baig DO Address: [address] [place] [address] [facility] [address]
--- OUTSIDE RECORDS SUMMARY | 2023-12-15 20:51 | XMS_ITS | Continuity of Care Document ---
Author Organization [facility] Address [address] [place] [address]- Care Team Providers Care Food Services Director Name Role Phone Jany Baig DO Primary Care Physician ( [phone] Encounter [facility] Date(s): 08/22/20 - 09/21/20 [facility] [address] [place] [id number]- Attending Physician: Venice Salmon Admitting Physician: Venice [...] n 1Admin Note: #2 2Result Comment: [04/29/2017] [id number] 3Admin Note: FLUARIX 4Admin Note: 3 RDINJ Medications baclofen 10 mg oral tablet 1, tablet, By Mouth, 3 times a day, # 90 tablet, Refills 0, Tot. Refills 0, Maintenance, 09/09/20 17:02:00 EDT, [facility], 178, cm, 08/31/20 11:25:00 EDT, Height, 84.9, kg, 08/31/20 1:07:00 EDT, Dry Weight Start Date: 09/09/20 Status: Ordered chantix 1mg tablet 1 tablet, By Mouth, 2 times a day, for 12 week(s), # 56 tablet, 0 Refills, Acute, 09/05/20 17:32:00EDT, [facility], 178, cm, 08/31/20 11:25:00 EDT, Height, 84.9, kg, 08/31/20 1:07:00 EDT, Dry Weight Start Date: 09/05/20 Stop Date: 11/28/20 Status: Ordered Co Q-10 100 mg oral capsule 1 capsule, By Mouth, 4 times a day, # 120 capsule, 11 Refills, Maintenance, 11/21/19 10:36:00 EDT, [facility]/pharmacy #[id number], 175, cm, 08/24/19 14:14:00 EDT, Height, 81.2, kg, 02/04/19 1:40:00 EDT, Dry Weight Start Date: 11/21/19 Stop Date: 11/15/20 Status: Ordered Engerix-B 20 mcg/mL intramuscular suspension = 20 mcg, Intramuscular, Every 30 days, rpt at 1 and 6 months, # 1 mL, 2 Refills, Maintenance, 11/02/19 9:02:00 EDT, Suspension, [facility]/pharmacy #[id number], 175, cm, 08/24/19 14:14:00 EDT, Height, 81.2, kg, 02/04/19 1:40:00 EDT, Dry Weight Start Date: 11/02/19 Status: Ordered fluticasone 50 mcg/inh nasal spray See Instructions, SPRAY 1 SPRAY INTO EACH NOSTRIL TWICE A DAY, # 16 Gm, 5 Refills, 07/09/20 11:38:00 EST, [facility], 30, SPRAY 1 SPRAY INTO EACH NOSTRIL TWICE A DAY, 175, cm, 04/02/20 0:35:00 EDT, Height, 100, kg, 04/02/20 0:35:00 EDT, Dry We... Start Date: 07/09/20 Status: Ordered gabapentin 600 mg oral tablet 1 tablet, By Mouth, 4 times a day, # 120 tablet, 0 Refills, Maintenance, 09/05/20 17:32:00 EDT, [facility], 178, cm, 08/31/20 11:25:00 EDT, Height, 84.9, kg, 08/31/20 1:07:00 EDT, Dry Weight Start Date: 09/05/20 Status: Ordered hydrOXYzine hydrochloride 25 mg oral tablet 1 TO 2 TABLETS, By Mouth, 3 times a day, PRN NEEDED FOR ANXIETY (VIAL), # 60 tablet, 0 Refills, Acute, 09/05/20 17:32:00 EDT, [facility], 178, cm, 08/31/20 11:25:00 EDT, [...] 11/25/20 16:37:00 EDT, 12/01/19 16:37:00 EDT, Syrup, [facility], re sent from 10/04/17, 30... Start Date: 12/01/19 Stop Date: 11/25/20 Status: Ordered melatonin 3 mg oral tablet 1 tablet = 3 mg, By Mouth, Daily at bedtime, PRN for insomnia, # 60 tablet, 4 Refills, Maintenance,07/18/20 17:30:00 EST, Tablet, [facility], 175, cm, 04/02/20 0:35:00 EDT, Height, 100, kg, 04/02/20 0:35:00 EDT, Dry Weight Start Date: 07/18/20 Status: Ordered mupirocin 2% topical ointment See Instructions, APPLY TOPICALLY THREE TIMES DAILY (APPLY A THIN FILM), # 22 Gm, 0 Refills, Maintenance, 04/16/20 14:45:00 EST, [facility]/pharmacy #[id number], 8, APPLY TOPICALLY THREE [...] 1 Refills, Maintenance, 10/06/19 15:57:00 EDT, Tablet, [facility], 175, cm, 08/24/19 14:14:00 EDT,Height, 81.2, kg, 02/04/19 1:40:00 EDT, Dry Weight Start Date: 10/06/19 Status: Ordered sertraline 50 mg oral tablet 1 tablet, By Mouth, Daily, TAKE ALONG WITH A 100MG TABLET to equal 150mg daily, # 90 tablet, 1 Refills, Maintenance, 10/06/19 15:57:00 EDT, [facility], 175, cm, 08/24/19 14:14:00 EDT, Height,81.2, kg, 02/04/19 1:40:00 EDT, Dry Weight Start Date: 10/06/19 Status: Ordered sildenafil 50 mg oral tablet 1 tablet = 50 mg, By Mouth, Daily, PRN erectile dysfunction, 1 hour before sexual activity, # 6 tablet, 5 Refills, Maintenance, 03/11/20 14:37:00 EDT, Tablet, [facility]/pharmacy #[id number], 175, cm, 08/24/19 14:14:00 EDT, Height, 81.2, kg, 02/04/19 1:40:00 EDT,... Start Date: 03/11/20 Status: Ordered Tab-A-Jesse oral tablet See Instructions, TAKE 1 TABLET BY MOUTH ONCE A DAY, # 30 tablet, 10 Refills, Maintenance, [facility], 28, TAKE 1 TABLET BY [...] Required Details, Route to Pharmacy Electronically, [facility], 178, cm, 08/31/20 11:25:00 EDT, Height, 84.... Start Date: 09/05/20 Status: Ordered Vitamin B1 100 mg oral tablet 1, tablet, By Mouth, Daily, # 90 tablet, Refills 2, Tot. Refills 0, Acute, 09/05/20 17:32:00 EDT, Route to Pharmacy Electronically, [facility], 178, cm, 08/31/20 11:25:00 EDT, Height, 84.9, kg, 08/31/20 1:07:00 EDT, Dry Weight Start Date: 09/05/20 Status: Ordered Xifaxan 550 mg oral tablet 1 tablet, By Mouth, 2 times a day, # 60 tablet, 0 Refills, Maintenance, 04/16/20 14:45:00 EST, [facility]/pharmacy #[id number], 175, cm, 04/02/20 0:35:00 [...]
--- OUTSIDE RECORDS SUMMARY | 2023-12-15 20:51 | XMS_ITS | Continuity of Care Document ---
Author Organization [facility] Address [address] [place] [address]- Care Team Providers Care Bar Staff Name Role Phone Jany Baig DO Primary Care Physician ( [phone] Encounter [facility] [place] Date(s): 01/01/22 - 01/31/22 [facility] [address] [place] [address]- Allergies, Adverse Reactions, Alerts Substance Reaction Severity [...] (oldterm) 08/02/12 Give n 1Result Comment: [04/29/2017] [id number] 2Admin Note: FLUARIX 3Admin Note: 3 RDINJ 4Admin Note: #2 Medications acetaminophen 500 mg oral tablet 1 tablet, By Mouth, 4 times a day, PRN NEEDED FOR PAIN, MAX 4, PER DAY (VIAL., # 50 tablet, 0 Refills, [facility], 175, cm, 01/06/22 10:34:00 EDT, Height, 78.3, kg, 12/26/21 19:05:00 EDT, Dry Weight Start Date: 01/28/22 Status: Ordered amLODIPine 5 mg oral tablet 5 mg, 1, tablet, By Mouth, Daily, # 30 tablet, Refills 5, Tot. Refills 5, Maintenance, 10/21/21 10:15:00 EDT, Route to Pharmacy Electronically, [facility], Partial fill upon patient request if the prescription is for a schedule II opioid drug.... Start Date: 10/21/21 Status: Ordered Co Q-10 100 mg oral capsule 1 capsule, By Mouth, 4 times a day, # 120 capsule, 6 Refills, [facility], 174, cm, 02/27/2115:17:00 EDT, Height, 81, [...] A DAY, # 16 Gm, 5 Refills, [facility], 30, USE 1 SPRAY INTO EACH NOSTRIL TWICE A DAY, 174, cm, 07/14/21 8:16:00 EST, Height, 81, kg, 02/27/21 14:06:00 EDT, Dry Weight Start Date: 08/04/21 Status: Ordered folic acid 1 mg oral tablet 1 mg, 1, tablet, By Mouth, Daily, # 90 tablet, Refills 4, Tot. Refills 4, Maintenance, 10/27/21 10:40:00 EDT, [facility], Partial fill upon patient request if the prescription is for a schedule II opioid drug.... Start Date: 10/27/21 Stop Date: 01/20/23 Status: Ordered furosemide 20 mg oral tablet 1, tablet, By Mouth, Daily, # 30 tablet, Refills 0, Route to Pharmacy Electronically, [facility], 175, cm, 01/06/22 10:34:00 EDT, Height, 78.3, kg, 12/26/21 19:05:00 EDT, Dry Weight Start Date: 01/21/22 Status: Ordered hydrOXYzine hydrochloride 25 mg oral tablet 1 TO 2 TABLETS, By Mouth, 3 times a day, PRN NEEDED FOR ANXIETY (VIAL), # 60 tablet, 0 Refills, [facility], 175, cm, 01/06/22 10:34:00 EDT, Height, 78.3, kg, 12/26/21 19:05:00 EDT, Dry Weight Start Date: 01/28/22 Status: Ordered lactulose 10 gm/15 ml oral syrup See Instructions, TAKE 30ML BY MOUTH THREE TIMES DAILY NEEDED TO ACHEIVE 3-4 BOWL MOVEMENTS PER DAY, # 3,000 mL, 10 Refills, [facility], 30, TAKE 30ML BY MOUTH THREE TIMES DAILY NEEDED TO ACHEIVE 3-4 BOWL MOVEMENTS PER DAY, 174, cm, 02/12... Start Date: 07/02/21 Status: Ordered lidocaine 0.5% topical gel 1 application, Topically, 3 times a day, # 120 Gm, 0 Refills, Acute 12/30/22 17:23:00 EDT, 12/30/2216:23:00 EDT, Gel, [facility], Partial fill upon patient request if the prescription is fora schedule II opioid drug., 1 application Topically... Start Date: 12/30/21 Stop Date: 12/30/22 Status: Ordered Lidoderm 5% film 1 patch, Topically, Daily, remove patches after 12 hours NSAIDS contraindicated High dose tylenol contraindicated, # 30 patch, 5 Refills, Maintenance, 12/26/21 9:33:00 EDT, [facility], Partial fill upon patient request if the prescription i... Start Date: 12/26/21 Status: Ordered magnesium oxide 400 mg oral tablet 1 tablet, By Mouth, 2 times a day, # 60 tablet, 0 Refills, [facility], 175, cm, 01/06/22 10:34:00 EDT, Height, 78.3, kg, 12/26/21 19:05:00 EDT, Dry Weight Start Date: 01/21/22 Status: Ordered Melatonin 3 mg oral tablet 1 tablet, By Mouth, Daily at bedtime, PRN NEEDED FOR INSOMNIA (PACKAGE IN TRAY), # 60 tablet, 5 Refills, Maintenance, 06/02/21 16:17:00 EST, [facility], 28, 1 tablet By Mouth Daily [...] Refills, Maintenance, 01/28/22 10:17:00 EDT, ER Tablet, [facility], Partial fill upon [...] Mouth, Daily, # 90 tablet, 9 Refills, [facility], 28, TAKE 1 TABLET BY [...] to Pharmacy Electronically, [facility], 175,cm, 01/06/22 10:34:00 EDT, Height, 78.3, kg, ... Start Date: 01/30/22 Status: Ordered traZODone 50 mg oral tablet See Instructions, TAKE 2-3 TABLETS BY MOUTH AT BEDTIME (ONE DOSE IN VIAL), # 90 tablet, Refills 5, Tot. Refills 5, Maintenance, 12/26/21 9:21:00 EDT, Instructions Replace Required Details, Route to Pharmacy Electronically, [facility], 170, cm,... Start Date: 12/26/21 Status: Ordered Vitamin B1 100 mg oral tablet 1, tablet, By Mouth, Daily, # 90 tablet, Refills 0, Route to Pharmacy Electronically, [facility], 170, cm, 11/12/21 10:02:00 EDT, Height, 78, kg, 11/04/21 12:03:00 EDT, Dry Weight Start Date: 12/24/21 Status: Ordered Xifaxan 550 mg oral tablet 1 tablet, By Mouth, 2 times a day, # 60 tablet, 2 Refills, [facility], 175, cm, 01/06/22 10:34:00 EDT, Height, [...]
--- OUTSIDE RECORDS SUMMARY | 2023-12-15 20:52 | XMS_ITS | Continuity of Care Document ---
Author Organization [facility] Address [address] [place] [address]- Care Team Providers Care Cpr Ambulance Driver Name Role Phone Jany Baig DO Primary Care Physician Encounter [facility] [place] Date(s): 08/07/22 - 08/14/22 [facility] [address] [place], [place] [address] Attending Physician: Jany Baig [...] (oldterm) 08/02/12 Give n 1Result Comment: [facility]: [id number] 2Result Comment: [04/29/2017] [id number] 3Admin Note: FLUARIX 4Admin Note: 3 RDINJ 5Admin Note: #2 Medications acetaminophen 500 mg oral tablet 1 tablet, By Mouth, 4 times a day, PRN NEEDED FOR PAIN, MAX 4, PER DAY (VIAL., # 50 tablet, 11 Refills, Maintenance, 03/13/22 8:37:00 EDT, [facility], [facility], cm, 01/06/22 10:34:00 EDT, Height, 78.3, kg, 12/26/21 19:05:00 EDT, Dry Weight Start Date: 03/13/22 Status: Ordered amLODIPine 5 mg oral tablet See Instructions, TAKE 1 TABLET BY MOUTH ONCE A DAY^1R1, # 30 tablet, 5 Refills, Maintenance, 05/13/22 16:24:00 EST, [facility], 175, cm, 04/09/22 15:34:00 EDT, Height, 78.3, kg, 12/26/21 19:05:00 EDT, Dry Weight Start Date: 05/13/22 Status: Ordered baclofen 10 mg oral tablet See Instructions, TAKE 1 TABLET BY MOUTH THREE TIMES DAILY, # 90 tablet, Refills 0, Maintenance, 08/07/22 12:26:00 EST, Instructions Replace Required Details, Route to Pharmacy Electronically, [facility], 176, cm, 08/07/22 11:37:00 EST, Height... Start Date: 08/07/22 Status: Ordered cephalexin monohydrate 500 mg oral capsule 1 capsule = 500 mg, By Mouth, 4 times a day, for 10 days, # 40 capsule, 0 Refills, Acute 08/24/22 13:49:00 EDT, 08/14/22 13:49:00 EST, Capsule, [facility] #[id number], Partial fill upon patient request if the prescription is for a schedule II opioid drug.... Start Date: 08/14/22 Stop Date: 08/24/22 Status: Ordered Co Q-10 100 mg oral capsule See Instructions, TAKE 1 CAPSULE BY MOUTH FOUR TIMES DAILY, # 120 capsule, 6 Refills, Maintenance, 08/07/22 12:13:00 EST, [facility], 176, cm, 08/07/22 11:37:00 EST, Height, [...] EDT, Route to Pharmacy Electronically, [facility], Partial fill upon patient request if the prescription is for a schedule II opioid drug.... Start Date: 10/27/21 Stop Date: 01/20/23 Status: Ordered furosemide 20 mg oral tablet See Instructions, TAKE 1 TABLET BY MOUTH ONCE A DAY^1R1, # 30 tablet, Refills 2, Maintenance, 08/07/22 12:27:00 EST, Instructions Replace Required Details, Route to Pharmacy Electronically, [facility], 176, cm, 08/07/22 11:37:00 EST, Height, 7... Start Date: 08/07/22 Status: Ordered furosemide 20 mg oral tablet 1, tablet, By Mouth, Daily, R1., # 30 tablet, Refills 5, Tot. Refills 5, Maintenance, 08/10/22 16:49:00 EST, Route to Pharmacy Electronically, [facility] #[id number], 176, cm, 08/07/22 11:37:00 EST, Height, 79.8, kg, 07/31/22 22:40:00 EST, Dry Weight Start Date: 08/10/22 Status: Ordered gabapentin 300 mg oral capsule 2, capsule, By Mouth, Daily at bedtime, # 180 capsule, Refills 4, Maintenance, 08/10/22 16:53:00 EST, Route to Pharmacy Electronically, [id number], 176, cm, 08/07/22 11:37:00 EST, Height, 79.8, kg, 07/31/22 22:40:00 EST, Dry Weight Start Date: 08/10/22 Stop Date: 11/08/22 Status: Ordered hydrOXYzine hydrochloride 25 mg oral tablet 1 TO 2 TABLETS, By Mouth, Daily at bedtime, PRN NEEDED FOR ANXIETY (VIAL), # 60 tablet, 11 Refills, Maintenance, 03/13/22 8:38:00 EDT, [facility], 175, cm, 01/06/22 10:34:00 EDT, Height, 78.3, kg, 12/26/21 19:05:00 EDT, Dry Weight Start Date: 03/13/22 Status: Ordered lactulose 10 gm/15 ml oral syrup See Instructions, TAKE 30ML BY MOUTH THREE TIMES DAILY NEEDED TO ACHEIVE 3-4 BOWL MOVEMENTS PER DAY, # 3,000 mL, 10 Refills, [facility], 30, TAKE 30ML BY MOUTH THREE TIMES DAILY NEEDED TO ACHEIVE 3-4 BOWL MOVEMENTS PER DAY, 174, cm, 02/12... Start Date: 07/02/21 Status: Ordered Lidoderm 5% film 1 patch, Topically, Daily, remove patches after 12 hours NSAIDS contraindicated High dose tylenol contraindicated remove patches after 12 hours Rib fracture, # 30 patch, 5 Refills, Maintenance, 08/07/22 12:09:00 EST, [facility]/pharmacy #[id number], Partial f... Start Date: 08/07/22 Status: Ordered magnesium oxide 400 mg oral tablet 1 tablet, By Mouth, 2 times a day, # 60 tablet, 11 Refills, Maintenance, 03/13/22 8:37:00 EDT, [facility], 175, cm, 01/06/22 10:34:00 EDT, Height, 78.3, kg, 12/26/21 19:05:00 EDT, Dry Weight Start Date: 03/13/22 Status: Ordered Melatonin 3 mg oral tablet 1 tablet, By Mouth, Daily at bedtime, PRN NEEDED FOR INSOMNIA (PACKAGE IN TRAY)^1R4, # 60 tablet, 5 Refills, Maintenance, 06/12/22 18:11:00 EST, [facility], 60, TAKE 1 TABLET BY [...] 08/07/22 12:14:00 EST, Route to Pharmacy Electronically, [facility]/pharmacy #[id number], Partial fill upon patient requestif the prescription is for a schedule II opioid remedios... Start Date: 08/07/22 Stop Date: 02/03/23 Status: Ordered Potassium Chloride (Eqv-K-Tab) 20 mEq oral tablet, extended release 2 tablet, By Mouth, Daily, # 180 tablet, 1 Refills, Maintenance, 05/13/22 9:48:00 EST, [facility], 175, cm, 04/09/22 15:34:00 EDT, Height, 78.3, kg, 12/26/21 19:05:00 EDT, Dry Weight Start Date: 05/13/22 Stop Date: 11/09/22 Status: Ordered pyridoxine 50 mg oral tablet 50 mg, 1, tablet, By Mouth, Daily, for 90 days, # 90 tablet, Refills 4, Tot. Refills 4, Acute 01/15/23 11:42:00 EDT, 10/22/21 11:42:00 EDT, Route to Pharmacy Electronically, [facility], Partial fill upon patient request if [...] 90 tablet, 9 Refills, 08/07/22 12:27:00 EST, [facility]/pharmacy #[id number], 28, 1tablet By Mouth Daily, 176, cm, 08/07/22 11:37:00 EST, Height, 79.8, kg, 07/31/22 22:40:00 EST, DryWeight Start Date: 08/07/22 Status: Ordered tranexamic acid 650 mg oral tablet 1 tablet = 650 mg, By Mouth, Daily, # 19 tablet, 0 Refills, Maintenance, 08/01/22 16:17:00 EST, Tablet, [facility]/pharmacy #[id number], Partial fill upon patient request if the prescription is for a schedule II opioid drug., 176, cm, 08/01/22 15:52:00 EST, Height... Start Date: 08/01/22 Stop Date: 08/20/22 Status: Ordered traZODone 50 mg oral tablet 2 TO 3 TABLETS, By Mouth, Daily at bedtime, #28 VIAL)^2R4., # 90 tablet, Refills 5, Maintenance, 06/12/22 18:11:00 EST, Route to Pharmacy Electronically, [facility], 179, cm, 06/08/22 7:37:00EST, Height, 84, kg, 06/01/22 12:27:00 EST, Dry Weight Start Date: 06/12/22 Status: Ordered Vitamin B1 100 mg oral tablet 1, tablet, By Mouth, Daily, # 90 tablet, Refills 3, Maintenance, 03/13/22 8:37:00 EDT, Route to Pharmacy Electronically, [facility], 175, cm, 01/06/22 10:34:00 EDT, Height, 78.3, kg, 12/26/2218:05:00 EDT, Dry Weight Start Date: 03/13/22 Status: Ordered Xifaxan 550 mg oral tablet 1 tablet, By Mouth, 2 times a day, ^1R1,1R4., # 60 tablet, 1 Refills, Maintenance, 06/12/22 18:10:00 EST, [facility], 179, cm, 06/08/22 7:37:00 EST, Height, [...] recent to oldest [Reference Range]: 1 Height 176 cm (08/07/22 11:37 AM) Weight 85.4 kg (08/07/22 11:37 AM) Oxygen Saturation [94-100 %] 100 % (08/07/22 11:37 AM) Pulse Rate [55-90 bpm] 103 bpm *H* (08/07/22 11:37 AM) Body Mass Index [18.5-24.99 kg/m2] 27.57 kg/m2 *H* (08/07/22 11:37 AM) Blood Pressure [90-138/55-84 mm Hg] 134/ 78mm Hg (08/07/22 11:37 AM) Mode of Delivery (Oxygen) Room air (08/07/22 11:37 AM) Blood pressure sites Arm, left (08/07/22 11:37 AM) Weight Obtained Via Standing scale (08/07/22 11:37 AM) Social History Social History Type Response Smoking Status 10 or more cigarette s (1/2 pack or more)/day in last 30 days entered on: 02/04/19 Sex Note * Deja Hodge: PERFORM, SIGN, VERIFY Event Display: Patient Education/Instruction Authored Date: [id number] [facility] *[facility] Adult Ped Clinical Summary Name GEMA CABEZAS Age 47 Years 1975 PCP Jany Baig DO PCP Visit Date 08/07/2022 11:06:00 Additional Instructions: Scheduled Appointments?? Future Appointments ?*[facility] ?Phone:??--?Fax:??-- ?Appt. Date:??08/25/2022?2:30 PM ?Scheduled Provider:??[facility] ?[address] ?[facility],??[place],??[address] ?Phone:??[phone]?Fax:??-- ?Appt. Date:??02/05/2023?9:00 AM ?Scheduled Provider:??[id number] Follow-Up Instructions ?? Diagnosis Fracture of one rib, unspecified side, initial encounter for closed fracture Medications: Please continue your medications until treatment is completed or stopped by your provider. Discuss any questions related to medications with your provider. New Medications [id number], [address] [place] [id number], [phone] Miscellaneous Rx (Eucerin Original Healing Cream) apply 2 x a day for dry skin dx: eczema L30.9. Refills: 11. Next Dose: Medications to Continue Taking That Have Changed [id number], [address] [place] [phone], [phone] - Gabapentin (gabapentin 300 mg oral capsule) 1 capsule Oral 3 times a day for 30 Days. Refills: 4. Next Dose: - Lidocaine Topical (Lidoderm 5% film) 1 patch Topically Daily. remove patches after 12 hours NSAIDS contraindicated High dose tylenol contraindicated remove patches after 12 hours Rib fracture. Refills: 5. Next Dose: These medications were not printed or sent to your pharmacy - Furosemide (furosemide 20 mg oral tablet) 1 tab(s) Oral Daily. R1.. Refills: 5. Next Dose: - Furosemide (furosemide 20 mg oral tablet) TAKE 1 TABLET BY MOUTH ONCE A DAY^1R1. Refills: 2. Next Dose: Medications to Continue with No Changes [facility]acy #[id number], [address] [place] [id number], [phone] Fluticasone Nasal (fluticasone 50 mcg/inh nasal spray) USE 1 SPRAY(S) INTO EACH NOSTRIL TWICE A DAY. Refills: 11. Next Dose: Multivitamin (Tab-A-Jesse oral tablet) 1 tab(s) Oral Daily. Refills: 9. Next Dose: Paroxetine (PARoxetine 10 mg oral tablet) 0.5 tab(s) Oral Daily for 90 Days. Refills: 1. Next Dose: These medications were not printed [...] ankle sprain s93.409a. Refills: 0. Next Dose: Folic Acid (folic acid 1 mg oral tablet) 1 tab(s) Oral Daily for 90 Days. Refills: 4. Next Dose: HydrOXYzine (hydrOXYzine hydrochloride 25 mg oral tablet) 1 TO 2 TABLETS Oral Daily at Bedtime as needed NEEDED FOR ANXIETY (VIAL). Refills: 11. Next Dose: Lactulose (lactulose 10 gm/15 ml oral syrup) TAKE 30ML BY MOUTH THREE TIMES DAILY NEEDED TO ACHEIVE 3-4 BOWL MOVEMENTS PER DAY. Refills: 10. Next Dose: Magnesium Oxide (magnesium oxide 400 mg oral tablet) 1 tab(s) Oral twice a day. Refills: 11. Next Dose: Melatonin (Melatonin 3 mg oral tablet) 1 tab(s) Oral Daily at Bedtime as needed NEEDED FOR INSOMNIA (PACKAGE IN TRAY)^1R4. Refills: 5. Next Dose: Pantoprazole (pantoprazole 40 mg oral delayed release tablet) 1 tab(s) Oral Daily. ^1R1.. Refills: 2. Next Dose: Potassium Chloride (Potassium Chloride (Eqv-K-Tab) 20 mEq [...] tab(s) Oral Daily. Refills: 3. Next Dose: Tranexamic Acid (tranexamic acid 650 mg oral tablet) 1 tab(s) Oral Daily for 19 Days. Refills: 0. Next Dose: Trazodone (traZODone 50 mg oral tablet) 2 TO 3 TABLETS Oral Daily at Bedtime. #28 VIAL)^2R4.. Refills: 5. Next Dose: Ubiquinone (Co Q-10 100 mg oral capsule) TAKE 1 CAPSULE BY MOUTH FOUR TIMES DAILY. Refills: 6. Next Dose: Allergy Info:?? NSAIDs; Tylenol; aspirin; ibuprofen Medications Given This Visit Future Orders ?No future orders Vital Signs Height 176 cm Weight 85.4 kg BMI 27.57 kg/m2 Blood Pressure 134 mm Hg/78 mm Hg Temperature Pulse Rate 103 bpm Respiratory Rate 02 Sat Mode of Delivery 100 %/Room air You can now view a summary of your hospital visit from the comfort of your home through a free online portal called [employer]. [employer] is a website that allows you to securely view your medical information including discharge summary, medications and follow-up visits. ??You can alsosend a secure electronic message to your doctor???s office to request appointments, renew medications or just ask a question. You can enroll at [email or web address] or register during your next office [...] primary care provider, you may find a [facility] provider by calling [facility] [employer] Link at [phone]. For information about the plan of care [...] Team Personnel Name: Alexandra Colmenares RN Position: [facility] RN W/OE and Tasks Member Role: Primary Care Nurse Name: Garima Manzano RN Position: [facility] RN Member Role: Primary Care Nurse Name: Malgorzata Marinelli RN Position: S RN Member Role: Primary Care Nurse Name: Joyce Roach RN Position: S RN Member Role: Primary Care Nurse Name: Mary Suazo RN Position: [facility] RN Member Role: Primary Care Nurse Name: Danyel Davis RN Position: [facility] RN Member Role: Primary Care Nurse Name: Andres Pressley RN Position: [facility] RN Member Role: Primary Care Nurse Name: Jany Baig DO Position: [facility] Primary Care Physician Member Role: PCP Address: Address: [address] [place] [address] Adult [place] [address]- Name: Neida Ballard RN Position: [facility] RN Member Role: Primary Care Nurse Name: Kaye Payne RN Position: [facility] RN Member Role: Primary Care Nurse Name: Garima Hutchinson Position: [facility] [...] Member Role: [employer] Provider Address: Address: [address] [place] [address] Name: Ge Covarrubias RN Position: [facility] RN Member Role: Primary Care Nurse Name: Orin Elmore RN Position: [facility] ED RN W/OE and Tasks Member Role: Primary Care Nurse Name: Allegra Liu RN Position: [facility] PCO RN Member Role: Primary Care Nurse Name: Shayan Pandya MD Position: [facility] Renal MD Member Role: [employer] Physician Address: Address: [address] [place] [address] [address] [facility] [place], [place] [address]- Name: Darlene Rodrigez RN Position: [facility] RN Member Role: Primary Care Nurse Name: Kwan Mills RN Position: [facility] RN Member Role: Primary Care Nurse Name: Dolores Can RN Position: [facility] RN Member Role: Primary Care Nurse Name: Kim Rendon RN Position: [facility] RN Member Role: Primary Care Nurse Name: Monica Rowell RN Position: S RN Member Role: Primary Care Nurse Care Team Related Persons Name: MARLEN CABEZAS Address: [place] [address] Name: MARLEN CABEZAS Address: [place] [address] Name: NICK CABEZAS Name: GEMA CABEZAS Address: [place] [address]
--- OUTSIDE RECORDS SUMMARY | 2023-12-15 20:52 | XMS_ITS | Continuity of Care Document ---
Author Organization [facility] y Address [address] [place], [place] [address]christopher perez, [address] [place] [address]- Care Team Providers Care Foreign Exchange Student Coordinator Name Role Phone Jany Baig DO Primary Care Physician Encounter [facility] Date(s): 12/06/20 - 01/29/21 [facility] [address] [place] [address], [address] [place] [address]- Attending Physician: Not on Staff, Attending MD [...] n 1Admin Note: #2 2Result Comment: [04/29/2017] [id number] 3Admin Note: FLUARIX 4Admin Note: 3 RDINJ Medications baclofen 10 mg oral tablet 1, tablet, By Mouth, 3 times a day, # 90 tablet, Refills 0, Tot. Refills 0, Maintenance, 01/20/21 15:04:00 EDT, Route to Pharmacy Electronically, [facility], 178, cm, 01/07/21 17:59:00 EDT, Height, 81.4, kg, 12/03/20 13:52:00 EDT, Dry Weight Start Date: 01/20/21 Status: Ordered chantix 1mg tablet 1 tablet, By Mouth, 2 times a day, # 56 tablet, 0 Refills, Acute, 11/22/20 16:13:00 EDT, [facility], 178, cm, 11/12/20 15:32:00 EDT, Height, 84.9, kg, 08/31/20 1:07:00 EDT, Dry Weight Start Date: 11/22/20 Status: Ordered Co Q-10 100 mg oral capsule See Instructions, TAKE 1 CAPSULE BY MOUTH FOUR TIMES DAILY, # 120 capsule, 7 Refills, Maintenance, [facility], 178, cm, 10/22/20 13:17:00 EDT, Height, [...] Refills, Maintenance, [facility], 30, USE 1 SPRAY INTO EACH NOSTRIL TWICE A DAY, 178, cm, 01/07/21 17:59:00 EDT, Height, 81.4, kg, 12/03/20 13:52:00 EDT, Dry Weight Start Date: 01/17/21 Status: Ordered gabapentin 600 mg oral tablet 1 tablet, By Mouth, 4 times a day, # 120 tablet, 0 Refills, Maintenance, 01/20/21 15:04:00 EDT, [facility], 178, cm, 01/07/21 17:59:00 EDT, Height, 81.4, kg, 12/03/20 13:52:00 EDT, Dry Weight Start Date: 01/20/21 Status: Ordered hydrOXYzine hydrochloride 25 mg oral tablet 1 TO 2 TABLETS, By Mouth, 3 times a day, PRN NEEDED FOR ANXIETY (VIAL), # 60 tablet, 3 Refills, Maintenance, 10/07/20 16:49:00 EDT, [facility], 178, cm, 08/31/20 11:25:00 EDT, Height, 84.9, kg, 08/31/20 1:07:00 EDT, Dry Weight Start Date: 10/07/20 Status: Ordered Keppra 500 mg oral tablet 1 tablet = 500 mg, By Mouth, 2 times a day, # 14 tablet, 0 Refills, Maintenance, 11/01/20 11:59:00 EDT, Tablet, [facility], Partial fill upon patient request if the prescription is for a schedule II opioid drug., 178, cm, 10/22/20 13:17:... Start Date: 11/01/20 Stop Date: 11/08/20 Status: Ordered melatonin 3 mg oral tablet 1 tablet = 3 mg, By Mouth, Daily at bedtime, PRN for insomnia, # 60 tablet, 4 Refills, Maintenance,07/18/20 17:30:00 EST, Tablet, [facility], 175, cm, 04/02/20 0:35:00 EDT, Height, [...] EDT, Tablet, [facility], 175, cm, 08/24/19 14:14:00 EDT,Height, 81.2, kg, 02/04/19 1:40:00 EDT, Dry Weight Start Date: 10/06/19 Status: Ordered sertraline 50 mg oral tablet 1 tablet, By Mouth, Daily, TAKE ALONG WITH A 100MG TABLET to equal 150mg daily, # 90 tablet, 1 Refills, Maintenance, 10/06/19 15:57:00 EDT, [facility], 175, cm, 08/24/19 14:14:00 EDT, Height,81.2, [...] DAY, # 30 tablet, 10 Refills, Maintenance, [facility], [...] [facility], 178, cm, 10/22/20... Start Date: 11/01/20 Status: Ordered Vitamin B1 100 mg oral tablet 1, tablet, By Mouth, Daily, # 90 tablet, Refills 2, Tot. Refills 0, Acute, 09/05/20 17:32:00 EDT, Route to Pharmacy Electronically, [facility], 178, cm, 08/31/20 11:25:00 EDT, Height, [...]
--- OUTSIDE RECORDS SUMMARY | 2023-12-15 20:52 | XMS_ITS | Continuity of Care Document ---
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 Name Role Phone Jany Baig DO Primary Care Physician Encounter [facility] Date(s): 07/17/22 - 08/16/22 [facility] [address] [place] [address]- Allergies, Adverse Reactions, Alerts Substance Reaction Severity [...] 08/02/12 Give n 1Result Comment: [facility]: [id number] 2Result Comment: [04/29/2017] [id number] 3Admin Note: FLUARIX 4Admin Note: 3 RDINJ 5Admin Note: #2 Medications acetaminophen 500 mg oral tablet 1 tablet, By Mouth, 4 times a day, PRN NEEDED FOR PAIN, MAX 4, PER DAY (VIAL., # 50 tablet, 11 Refills, Maintenance, 03/13/22 8:37:00 EDT, [facility], 175, cm, 01/06/22 10:34:00 EDT, Height, 78.3, kg, 12/26/21 19:05:00 EDT, Dry Weight Start Date: 03/13/22 Status: Ordered amLODIPine 5 mg oral tablet See Instructions, TAKE 1 TABLET BY MOUTH ONCE A DAY^1R1, # 30 tablet, 5 Refills, Maintenance, 05/13/22 16:24:00 EST, [facility], 175, cm, 04/09/22 15:34:00 EDT, Height, 78.3, kg, 12/26/21 19:05:00 EDT, Dry Weight Start Date: 05/13/22 Status: Ordered baclofen 10 mg oral tablet See Instructions, TAKE 1 TABLET BY MOUTH THREE TIMES DAILY, # 90 tablet, Refills 0, Maintenance, 08/07/22 12:26:00 EST, Instructions Replace Required Details, Route to Pharmacy Electronically, [facility], 176, cm, 08/07/22 11:37:00 EST, Height... Start Date: 08/07/22 Status: Ordered cephalexin monohydrate 500 mg oral capsule 1 capsule = 500 mg, By Mouth, 4 times a day, for 10 days, # 40 capsule, 0 Refills, Acute 08/24/22 13:49:00 EDT, 08/14/22 13:49:00 EST, Capsule, [facility]/pharmacy #[id number], Partial fill upon patient request if the prescription is for a schedule II opioid drug.... Start Date: 08/14/22 Stop Date: 08/24/22 Status: Ordered Co Q-10 100 mg oral capsule See Instructions, TAKE 1 CAPSULE BY MOUTH FOUR TIMES DAILY, # 120 capsule, 6 Refills, Maintenance, 08/07/22 12:13:00 EST, [facility], 176, cm, 08/07/22 11:37:00 EST, Height, [...] 10/27/21 10:40:00 EDT, Route to Pharmacy Electronically, [facility], Partial fill upon patient request if the prescription is for a schedule II opioid drug.... Start Date: 10/27/21 Stop Date: 01/20/23 Status: Ordered furosemide 20 mg oral tablet See Instructions, TAKE 1 TABLET BY MOUTH ONCE A DAY^1R1, # 30 tablet, Refills 2, Maintenance, 08/07/22 12:27:00 EST, Instructions Replace Required Details, Route to Pharmacy Electronically, [facility], 176, cm, 08/07/22 11:37:00 EST, Height, 7... Start Date: 08/07/22 Status: Ordered furosemide 20 mg oral tablet 1, tablet, By Mouth, Daily, R1., # 30 tablet, Refills 5, Tot. Refills 5, Maintenance, 08/10/22 16:49:00 EST, Route to Pharmacy Electronically, [facility]/pharmacy #[id number], 176, cm, 08/07/22 11:37:00 EST, Height, 79.8, kg, 07/31/22 22:40:00 EST, Dry Weight Start Date: 08/10/22 Status: Ordered gabapentin 300 mg oral capsule 2, capsule, By Mouth, Daily at bedtime, # 180 capsule, Refills 4, Maintenance, 08/10/22 16:53:00 EST, Route to Pharmacy Electronically, [id number], 176, cm, 08/07/22 11:37:00 EST, Height, 79.8, kg, 07/31/22 22:40:00 EST, Dry Weight Start Date: 08/10/22 Stop Date: 11/08/22 Status: Ordered hydrOXYzine hydrochloride 25 mg oral tablet 1 TO 2 TABLETS, By Mouth, Daily at bedtime, PRN NEEDED FOR ANXIETY (VIAL), # 60 tablet, 11 Refills, Maintenance, 03/13/22 8:38:00 EDT, [facility], 175, cm, 01/06/22 10:34:00 EDT, [...] patch, 5 Refills, Maintenance, 08/07/22 12:09:00 EST, [facility]/pharmacy #[id number], Partial f... Start Date: 08/07/22 Status: Ordered magnesium oxide 400 mg oral tablet 1 tablet, By Mouth, 2 times a day, # 60 tablet, 11 Refills, Maintenance, 03/13/22 8:37:00 EDT, [facility], 175, cm, 01/06/22 10:34:00 EDT, Height, 78.3, kg, 12/26/21 19:05:00 EDT, Dry Weight Start Date: 03/13/22 Status: Ordered Melatonin 3 mg oral tablet 1 tablet, By Mouth, Daily at bedtime, PRN NEEDED FOR INSOMNIA (PACKAGE IN TRAY)^1R4, # 60 tablet, 5 Refills, Maintenance, 06/12/22 18:11:00 EST, [facility], 60, TAKE 1 [...] 08/07/22 12:14:00 EST, Route to Pharmacy Electronically, [facility]/pharmacy #[id number], Partial fill upon patient requestif the prescription is for a schedule II opioid remedios... Start Date: 08/07/22 Stop Date: 02/03/23 Status: Ordered Potassium Chloride (Eqv-K-Tab) 20 mEq oral tablet, extended release 2 tablet, By Mouth, Daily, # 180 tablet, 1 Refills, Maintenance, 05/13/22 9:48:00 EST, [facility], 175, cm, 04/09/22 15:34:00 EDT, Height, 78.3, kg, 12/26/21 19:05:00 EDT, Dry Weight Start Date: 05/13/22 Stop Date: 11/09/22 Status: Ordered pyridoxine 50 mg oral tablet 50 mg, 1, tablet, By Mouth, Daily, for 90 days, # 90 tablet, Refills 4, Tot. Refills 4, Acute 01/15/23 11:42:00 EDT, 10/22/21 11:42:00 EDT, Route to Pharmacy Electronically, [facility], Partial fill upon patient request if [...] 0 Refills, Maintenance, 08/01/22 16:17:00 EST, Tablet, [facility]/pharmacy #[id number], Partial fill upon patient request if the prescription is for a schedule II opioid drug., 176, cm, 08/01/22 15:52:00 EST, Height... Start Date: 08/01/22 Stop Date: 08/20/22 Status: Ordered traZODone 50 mg oral tablet 2 TO 3 TABLETS, By Mouth, Daily at bedtime, #28 VIAL)^2R4., # 90 tablet, Refills 5, Maintenance, 06/12/22 18:11:00 EST, Route to Pharmacy Electronically, [facility], 179, cm, 06/08/22 7:37:00EST, Height, 84, kg, 06/01/22 12:27:00 EST, Dry Weight Start Date: 06/12/22 Status: Ordered Vitamin B1 100 mg oral tablet 1, tablet, By Mouth, Daily, # 90 tablet, Refills 3, Maintenance, 03/13/22 8:37:00 EDT, Route to Pharmacy Electronically, [facility], 175, cm, 01/06/22 10:34:00 EDT, Height, 78.3, kg, 12/26/2218:05:00 EDT, Dry Weight Start Date: 03/13/22 Status: Ordered Xifaxan 550 mg oral tablet 1 tablet, By Mouth, 2 times a day, ^1R1,1R4., # 60 tablet, 1 Refills, Maintenance, 06/12/22 18:10:00 EST, [facility], 179, cm, 06/08/22 7:37:00 EST, Height, [...] Team Personnel Name: Alexandra Colmenares RN Position: [facility] ED RN W/OE and Tasks Member Role: Primary Care Nurse Name: Garima Manzano RN Position: [facility] RN Member Role: Primary Care Nurse Name: Malgorzata Marinelli RN Position: [facility] RN Member Role: Primary Care Nurse Name: Joyce Roach RN Position: [facility] RN Member Role: Primary Care Nurse Name: Mary Suazo RN Position: [facility] RN Member Role: Primary Care Nurse Name: Danyel Davis RN Position: [facility] RN Member Role: Primary Care Nurse Name: Andres Pressley RN Position: [facility] RN Member Role: Primary Care Nurse Name: Jany Baig DO Position: [facility] Primary Care Physician Member Role: PCP Address: Address: [address] [place] [address] Adult [facility] [place] [address]- Name: Neida Ballard RN Position: [facility] RN Member Role: Primary Care Nurse Name: Kaye Payne RN Position: [facility] RN Member Role: Primary Care Nurse Name: Garima Hutchinson Position: [facility] RN Member Role: Primary Care Nurse Name: Malgorzata Austin Position: [facility] RN Member Role: Primary Care Nurse Name: Torrie Hernandez RN Position: [facility] OB RN Member Role: Primary Care Nurse Name: Gretchen Knutson RN Position: [facility] SN RN Member Role: Primary Care Nurse Name: Aislinn Mckee RN Position: [facility] RN Member Role: Primary Care Nurse Name: Ashley Mcelroy Position: [facility] RN Member Role: Primary Care Nurse Name: Cody Garcia Position: [facility] Associate Professional Member Role: Lifetime Consulting Provider Address: Address: [address] [place] [address] Name: Ge Covarrubias RN Position: [facility] RN Member Role: Primary Care Nurse Name: Orin Elmore RN Position: [facility] ED RN W/OE and Tasks Member Role: Primary Care Nurse Name: Allegra Liu RN Position: [facility] PCO RN Member Role: Primary Care Nurse Name: Shayan Pandya MD Position: [facility] Renal MD Member Role: Lifetime Consulting Physician Address: Address: [address] [place] [address] [address] [facility] [address] Name: Darlene Rodrigez RN Position: [facility] RN Member Role: Primary Care Nurse Name: Kwan Mills RN Position: [facility] RN Member Role: Primary Care Nurse Name: Dolores Can RN Position: [facility] RN Member Role: Primary Care Nurse Name: Kim Rendon RN Position: [facility] RN Member Role: Primary Care Nurse Name: Monica Rowell RN Position: [facility] RN Member Role: Primary Care Nurse Care Team Related Persons Name: MARLEN CABEZAS Address: home [address] [place] [address] Name: MARLEN CABEZAS Address: home [address] [place] [id number] Name: NICK CABEZAS Name: CAWUMOSESGEMA Address: home [address] [place] [address]
--- OUTSIDE RECORDS SUMMARY | 2023-12-15 20:52 | XMS_ITS | Continuity of Care Document ---
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 Phone Jany Baig DO Primary Care Physician [facility]counter [facility] Date(s): 10/05/22 - 11/04/22 [facility] [address] [place] [address]- Allergies, Adverse Reactions, Alerts Substance Reaction Severity [...] acel (oldterm) 08/02/12 Give n 1Result Comment: [facility]: [id number] 2Result Comment: [04/29/2017] [id number] 3Admin Note: FLUARIX 4Admin Note: 3 RDINJ 5Admin Note: #2 Medications acamprosate 333 mg oral delayed release tablet 1 tablet = 333 mg, By Mouth, 3 times a day, # 42 tablet, 4 Refills, Maintenance, 10/24/22 9:53:00 EDT, EC Tablet, [facility], Partial fill upon patient request if the prescription is for a schedule II opioid drug., 175, cm, 10/21/22 20:41:00 E... Start Date: 10/24/22 Stop Date: 01/02/23 Status: Ordered amLODIPine 5 mg oral tablet 1 tablet, By Mouth, Daily, ^1R1., # 30 tablet, 2 Refills, Maintenance, 10/06/22 4:58:00 EDT, [facility], 176, cm, 09/07/22 8:56:00 EDT, Height, 82.1, kg, 09/07/22 8:59:00 EDT, Dry Weight Start Date: 10/06/22 Status: Ordered baclofen 10 mg oral tablet See Instructions, TAKE 1 TABLET BY MOUTH THREE TIMES DAILY, # 90 tablet, Refills 0, Maintenance, 08/07/22 12:26:00 EST, Instructions Replace Required Details, Route to Pharmacy Electronically, [facility], 176, cm, 08/07/22 11:37:00 EST, Height... Start Date: 08/07/22 Status: Ordered calcium (as carbonate)-vitamin D 500 mg-400 intl units oral tablet 1 tablet, By Mouth, Daily, ^1R1., # 28 tablet, 0 Refills, Maintenance, 10/08/22 16:58:00 EDT, [facility], 28, TAKE ONE TABLET BY MOUTH [...] capsule, 6 Refills, Maintenance, 08/07/22 12:13:00 EST, [facility], 176, cm, 08/07/22 11:37:00 EST, Height, [...] 11 Refills, Maintenance, 08/07/22 12:12:00 EST, [facility]/pharmacy #[id number], 30, USE 1 SPRAY(S) INTO EACH NOSTRIL TWICE A DAY, 176, cm,08/07/22 11:37:00 EST, Height, 79.8, kg, 07/31/22 2... Start Date: 08/07/22 Status: Ordered folic acid 1 mg oral tablet 1, tablet, By Mouth, Daily, R1., # 30 tablet, Refills 5, Tot. Refills 5, Maintenance, 10/06/22 4:59:00 EDT, Route to Pharmacy Electronically, [facility], 176, cm, 09/07/22 8:56:00 EDT, Height, [...] 09/03/22 14:50:00 EDT, Route to Pharmacy Electronically, [facility], 169, cm, 09/03/22 14:21:00 EDT, Height, 69, kg, 08/16/22 1:04:00 EST, Dry Weight Start Date: 09/03/22 Status: Ordered gabapentin 300 mg oral capsule 300 mg, 1, capsule, By Mouth, 2 times a day, note dose/frequency change, # 180 capsule, Refills 4, Tot. Refills 4, Maintenance, 09/03/22 14:55:00 EDT, Route to Pharmacy Electronically, [facility], 169, cm, 09/03/22 14:21:00 EDT, Height, 69, kg... Start Date: 09/03/22 Stop Date: 11/27/23 Status: Ordered hydrOXYzine hydrochloride 10 mg oral tablet 2 tablet, By Mouth, 2 times a day, PRN NEEDED FOR ANXIETY (VIAL), # 30 tablet, 3 Refills, Maintenance, 09/24/22 17:01:00 EDT, [facility], 176, cm, 09/07/22 8:56:00 EDT, Height, 82.1, kg, 09/07/22 8:59:00 EDT, Dry Weight Start Date: 09/24/22 Status: Ordered lactulose 10 gm/15 ml oral syrup 15 mL, By Mouth, 2 times a day, # 120 mL, 6 Refills, Maintenance, 09/22/22 12:15:00 EDT, [facility], 4, TAKE 15ML BY MOUTH TWO TIMES A DAY, 176, cm, 09/07/22 8:56:00 EDT, Height, 82.1, kg, 09/07/22 8:59:00 EDT, Dry Weight Start Date: 09/22/22 Status: Ordered Lidoderm 5% film 1 patch, Topically, Daily, remove patches after 12 hours NSAIDS contraindicated High dose tylenol contraindicated remove patches after 12 hours Nueropathy, # 30 patch, 5 Refills, Maintenance, 09/03/22 16:34:00 EDT, [facility], Partial klaudia... Start Date: 09/03/22 Status: Ordered Melatonin 3 mg oral tablet 1 tablet, By Mouth, Daily at bedtime, PRN NEEDED FOR INSOMNIA (PACKAGE IN TRAY)^1R4, # 60 tablet, 5 Refills, Maintenance, 06/12/22 18:11:00 EST, [facility], 60, TAKE 1 TABLET BY MOUTH [...] 09/03/22 14:53:00 EDT, Route to Pharmacy Electronically, [facility], Partial fill upon patient request if the prescription is for a schedule II opioid drug... Start Date: 09/03/22 Stop Date: 03/02/23 Status: Ordered pyridoxine 50 mg oral tablet 50 mg, 1, tablet, By Mouth, Daily, for 90 days, # 90 tablet, Refills 4, Tot. Refills 4, Acute 01/15/23 11:42:00 EDT, 10/22/21 11:42:00 EDT, Route to Pharmacy Electronically, [facility], Partial fill upon patient request if [...] 10/24/22 9:56:00 EDT, Route to Pharmacy Electronically, [facility], Partial fill upon patient request if the prescription is for a schedule II opioid drug.... Start Date: 10/24/22 Status: Ordered Tab-A-Jesse oral tablet 1 tablet, By Mouth, Daily, # 90 tablet, 9 Refills, 08/07/22 12:27:00 EST, [facility]/pharmacy #[id number], 28, 1tablet By Mouth Daily, 176, cm, 08/07/22 11:37:00 EST, Height, 79.8, kg, 07/31/22 22:40:00 EST, DryWeight Start Date: 08/07/22 Status: Ordered traZODone 50 mg oral tablet 2 tablets, By Mouth, Daily at bedtime, # 60 each, Refills 5, Tot. Refills 5, Maintenance, 09/03/22 17:13:00 EDT, Route to Pharmacy Electronically, [facility], 169, cm, 09/03/22 14:21:00 EDT, Height, 69, kg, 08/16/22 1:04:00 EST, Dry Weight Start Date: 09/03/22 Status: Ordered Vitamin B1 100 mg oral tablet 1, tablet, By Mouth, Daily, # 90 tablet, Refills 3, Maintenance, 03/13/22 8:37:00 EDT, Route to Pharmacy Electronically, [facility], 175, cm, 01/06/22 10:34:00 EDT, Height, [...] tablet, 3 Refills, Maintenance, 10/01/22 15:19:00 EDT, [facility], 176, cm, 09/07/22 8:56:00 EDT, Height, [...] Team Personnel Name: Alexandra Colmenares RN Position: [facility] ED RN W/OE and Tasks Member Role: Primary Care Nurse Name: Garima Manzano RN Position: [facility] RN Member Role: Primary Care Nurse Name: Malgorzata Marinelli RN Position: [facility] RN Member Role: Primary Care Nurse Name: Joyce Roach RN Position: [facility] RN Member Role: Primary Care Nurse Name: Mary Suazo RN Position: [facility] RN Member Role: Primary Care Nurse Name: Andres Pressley RN Position: [facility] RN Member Role: Primary Care Nurse Name: Jany Baig DO Position: [facility] Physician - Primary Care Member Role: PCP Address: Address: [address] [place] [address] Adult & [place] [address]- Name: Neida Ballard RN Position: [facility] RN Member Role: Primary Care Nurse Name: Kaye Payne RN Position: [facility] RN Member Role: Primary Care Nurse Name: Garima Hutchinson Position: [facility] RN Member Role: Primary Care Nurse Name: Malgorzata Austin Position: [facility] RN Member Role: Primary Care Nurse Name: Ibeth Adams RN Position: [facility] RN Member Role: Primary Care Nurse Name: Torrie Hernandez RN Position: [facility] OB RN Member Role: Primary Care Nurse Name: Gretchen Knutson RN Position: [facility] SN RN Member Role: Primary Care Nurse Name: Aislinn Mckee RN Position: [facility] RN Member Role: Primary Care Nurse Name: Ashley Mcelroy Position: [facility] RN Member Role: Primary Care Nurse Name: Cody Garcia Position: [facility] Associate Professional Member Role: Lifetime Consulting Provider Address: Address: [address] [place] [id number]- Name: Ge Covarrubias RN Position: [facility] RN Member Role: Primary Care Nurse Name: Orin Elmore RN Position: [facility] ED RN W/OE and Tasks Member Role: Primary Care Nurse Name: Allegra Liu RN Position: [facility] PCO RN Member Role: Primary Care Nurse Name: Shayan Pandya MD Position: [facility] Renal MD Member Role: Lifetime Consulting Physician Address: Address: [address] [place] [address] [address] [facility] [place], [place] [address]- Name: Darlene Rodrigez RN Position: [facility] RN Member Role: Primary Care Nurse Name: Kwan Mills RN Position: [facility] RN Member Role: Primary Care Nurse Name: Dolores Can RN Position: [facility] RN Member Role: Primary Care Nurse Name: Kim Rendon RN Position: [facility] RN Member Role: Primary Care Nurse Name: Monica Rowell RN Position: [facility] RN Member Role: Primary Care Nurse Name: Jimi Fitzpatrick RN Position: [facility] RN Member Role: Primary Care Nurse Care Team Related Persons Name: MARLEN CABEZAS Address: home [address] [place] [id number] Name: MARLEN CABEZAS Address: home [address] [place] [address] Name: NICK CABEZAS Name: GEMA CABEZAS Address: home [address] [place] [id number]
--- OUTSIDE RECORDS SUMMARY | 2023-12-15 20:52 | XMS_ITS | Continuity of Care Document ---
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 [place] Date(s): 12/31/21 - 01/30/22 [facility] [address] [place] [address]- Allergies, Adverse Reactions, Alerts Substance Reaction Severity [...] (oldterm) 08/02/12 Give n 1Result Comment: [04/29/2017] [id number] 2Admin Note: FLUARIX 3Admin Note: 3 RDINJ 4Admin Note: #2 Medications acetaminophen 500 mg oral tablet 1 tablet, By Mouth, 4 times a day, PRN NEEDED FOR PAIN, MAX 4, PER DAY (VIAL., # 50 tablet, 0 Refills, [facility], 175, cm, 01/06/22 10:34:00 EDT, Height, 78.3, kg, 12/26/21 19:05:00 EDT, Dry Weight Start Date: 01/28/22 Status: Ordered amLODIPine 5 mg oral tablet 5 mg, 1, tablet, By Mouth, Daily, # 30 tablet, Refills 5, Tot. Refills 5, Maintenance, 10/21/21 10:15:00 EDT, Route to Pharmacy Electronically, [facility], Partial fill upon patient request if the prescription is for a schedule II opioid drug.... Start Date: 10/21/21 Status: Ordered Co Q-10 100 mg oral capsule 1 capsule, By Mouth, 4 times a day, # 120 capsule, 6 Refills, [facility], 174, cm, 02/27/2115:17:00 EDT, Height, 81, [...] DAY, # 16 Gm, 5 Refills, [facility], 30, USE 1 SPRAY INTO EACH NOSTRIL TWICE A DAY, 174, cm, 07/14/21 8:16:00 EST, Height, 81, kg, 02/27/21 14:06:00 EDT, Dry Weight Start Date: 08/04/21 Status: Ordered folic acid 1 mg oral tablet 1 mg, 1, tablet, By Mouth, Daily, # 90 tablet, Refills 4, Tot. Refills 4, Maintenance, 10/27/21 10:40:00 EDT, Route to Pharmacy Electronically, [facility], Partial fill upon patient request if the prescription is for a schedule II opioid drug.... Start Date: 10/27/21 Stop Date: 01/20/23 Status: Ordered furosemide 20 mg oral tablet 1, tablet, By Mouth, Daily, # 30 tablet, Refills 0, Route to Pharmacy Electronically, [facility], 175, cm, 01/06/22 10:34:00 EDT, Height, 78.3, kg, 12/26/21 19:05:00 EDT, Dry Weight Start Date: 01/21/22 Status: Ordered hydrOXYzine hydrochloride 25 mg oral tablet 1 TO 2 TABLETS, By Mouth, 3 times a day, PRN NEEDED FOR ANXIETY (VIAL), # 60 tablet, 0 Refills, [facility], 175, cm, 01/06/22 10:34:00 EDT, Height, 78.3, kg, 12/26/21 19:05:00 EDT, Dry Weight Start Date: 01/28/22 Status: Ordered lactulose 10 gm/15 ml oral syrup See Instructions, TAKE 30ML BY MOUTH THREE TIMES DAILY NEEDED TO ACHEIVE 3-4 BOWL MOVEMENTS PER DAY, # 3,000 mL, 10 Refills, [facility], 30, TAKE 30ML BY MOUTH THREE TIMES DAILY NEEDED TO ACHEIVE 3-4 BOWL MOVEMENTS PER DAY, 174, cm, 02/12... Start Date: 07/02/21 Status: Ordered lidocaine 0.5% topical gel 1 application, Topically, 3 times a day, # 120 Gm, 0 Refills, Acute 12/30/22 17:23:00 EDT, 12/30/2216:23:00 EDT, Gel, [facility], Partial fill upon patient request if the prescription is fora schedule II opioid drug., 1 application Topically... Start Date: 12/30/21 Stop Date: 12/30/22 Status: Ordered Lidoderm 5% film 1 patch, Topically, Daily, remove patches after 12 hours NSAIDS contraindicated High dose tylenol contraindicated, # 30 patch, 5 Refills, Maintenance, 12/26/21 9:33:00 EDT, [facility], Partial fill upon patient request if the prescription i... Start Date: 12/26/21 Status: Ordered magnesium oxide 400 mg oral tablet 1 tablet, By Mouth, 2 times a day, # 60 tablet, 0 Refills, [facility], 175, cm, 01/06/22 10:34:00 EDT, Height, 78.3, kg, 12/26/21 19:05:00 EDT, Dry Weight Start Date: 01/21/22 Status: Ordered Melatonin 3 mg oral tablet 1 tablet, By Mouth, Daily at bedtime, PRN NEEDED FOR INSOMNIA (PACKAGE IN TRAY), # 60 tablet, 5 Refills, Maintenance, 06/02/21 16:17:00 EST, [facility], 28, 1 tablet By [...] Maintenance, 01/28/22 10:17:00 EDT, ER Tablet, [facility], Partial fill upon patient [...] 11:42:00 EDT, Route to Pharmacy Electronically, [facility], Partial fill upon patient [...] Daily, # 90 tablet, 9 Refills, [facility], 28, TAKE 1 TABLET [...] Required Details, Route to Pharmacy Electronically, [facility], 175,cm, 01/06/22 10:34:00 EDT, Height, 78.3, kg, ... Start Date: 01/30/22 Status: Ordered traZODone 50 mg oral tablet See Instructions, TAKE 2-3 TABLETS BY MOUTH AT BEDTIME (ONE DOSE IN VIAL), # 90 tablet, Refills 5, Tot. Refills 5, Maintenance, 12/26/21 9:21:00 EDT, Instructions Replace Required Details, Route to Pharmacy Electronically, [facility], 170, cm,... Start Date: 12/26/21 Status: Ordered Vitamin B1 100 mg oral tablet 1, tablet, By Mouth, Daily, # 90 tablet, Refills 0, Route to Pharmacy Electronically, [facility], 170, cm, 11/12/21 10:02:00 EDT, Height, 78, kg, 11/04/21 12:03:00 EDT, Dry Weight Start Date: 12/24/21 Status: Ordered Xifaxan 550 mg oral tablet 1 tablet, By Mouth, 2 times a day, # 60 tablet, 2 Refills, [facility], 175, cm, 01/06/22 10:34:00 EDT, Height, [...]
--- OUTSIDE RECORDS SUMMARY | 2023-12-15 20:52 | XMS_ITS | Continuity of Care Document ---
Author Organization [facility] ter Address [address] [place] [id number]- Care Team Providers Care Batch Maker Name Role Phone Jany Baig DO Primary Care Physician ( [phone] [place] [facility] [place] - 11/27/[address] [address]- Discharge Disposition: A-D/C Walkout Attending Physician: Not [...] 04/15/16 Give n influenza virus vaccine, inactivated 10/3/15 Give n influenza virus vaccine, inactivated 03/12/14 [...] (oldterm) 08/02/12 Give n 1Result Comment: [04/29/2017] [id number] 2Admin Note: FLUARIX 3Admin Note: 3 RDINJ 4Admin Note: #2 Medications amLODIPine 5 mg oral tablet 5 mg, 1, tablet, By Mouth, Daily, # 30 tablet, Refills 5, Tot. Refills 5, Maintenance, 10/21/21 10:15:00 EDT, Route to Pharmacy Electronically, [facility], Partial fill upon patient request if the prescription is for a schedule II opioid drug.... Start Date: 10/21/21 Status: Ordered Co Q-10 100 mg oral capsule 1 capsule, By Mouth, 4 times a day, # 120 capsule, 6 Refills, [facility], 174, cm, 02/27/2115:17:00 EDT, Height, 81, kg, 02/27/21 14:06:00 EDT, Dry Weight Start Date: 07/08/21 Status: Ordered fluticasone 50 mcg/inh nasal spray See Instructions, USE 1 SPRAY INTO EACH NOSTRIL TWICE A DAY, # 16 Gm, 5 Refills, [facility], 30, USE 1 SPRAY INTO EACH NOSTRIL TWICE A DAY, 174, cm, 07/14/21 8:16:00 EST, Height, 81, kg, 02/27/21 14:06:00 EDT, Dry Weight Start Date: 08/04/21 Status: Ordered folic acid 1 mg oral tablet 1 mg, 1, tablet, By Mouth, Daily, # 90 tablet, Refills 4, Tot. Refills 4, Maintenance, 10/27/21 10:40:00 EDT, Route to Pharmacy Electronically, [facility], Partial fill upon patient request if the prescription is for a schedule II opioid drug.... Start Date: 10/27/21 Stop Date: 01/20/23 Status: Ordered furosemide 40 mg oral tablet See Instructions, TAKE 1 TABLET BY MOUTH TWICE A DAY, # 60 tablet, Refills 5, Instructions Replace Required Details, Route to Pharmacy Electronically, [facility], 170, cm, 11/12/21 10:02:00 EDT, Height, 78, kg, 11/04/21 12:03:00 EDT, Dry Weight Start Date: 11/25/21 Status: Ordered gabapentin 300 mg oral capsule 300 mg, 1, capsule, By Mouth, Daily at bedtime, note dose change, # 90 capsule, Refills 4, Tot. Refills 4, Maintenance, 10/27/21 10:39:00 EDT, Route to Pharmacy Electronically, [facility], Partial fill upon patient request if the prescription... Start Date: 10/27/21 Stop Date: 01/20/23 Status: Ordered hydrOXYzine hydrochloride 25 mg oral tablet 1 TO 2 TABLETS, By Mouth, 3 times a day, PRN NEEDED FOR ANXIETY (VIAL), # 60 tablet, 0 Refills, [facility], 170, cm, 11/12/21 10:02:00 EDT, Height, 78, kg, 11/04/21 12:03:00 EDT, Dry Weight Start Date: 11/26/21 Status: Ordered lactulose 10 gm/15 ml oral syrup See Instructions, TAKE 30ML BY MOUTH THREE TIMES DAILY NEEDED TO ACHEIVE 3-4 BOWL MOVEMENTS PER DAY, # 3,000 mL, 10 Refills, [facility], 30, TAKE 30ML BY MOUTH THREE TIMES DAILY NEEDED TO ACHEIVE 3-4 BOWL MOVEMENTS PER DAY, 174, cm, 02/12... Start Date: 07/02/21 Status: Ordered magnesium oxide 400 mg oral tablet 1 tablet, By Mouth, 2 times a day, # 60 tablet, 1 Refills, [facility], 170, cm, 11/12/21 10:02:00 EDT, Height, 78, kg, 11/04/21 12:03:00 EDT, Dry Weight Start Date: 11/26/21 Status: Ordered Melatonin 3 mg oral tablet 1 tablet, By Mouth, Daily at bedtime, PRN NEEDED FOR INSOMNIA (PACKAGE IN TRAY), # 60 tablet, 5 Refills, Maintenance, 06/02/21 16:17:00 EST, [facility], 28, 1 tablet By [...] 11:42:00 EDT, Route to Pharmacy Electronically, [facility], Partial fill upon patient request if the prescription is... Start Date: 10/22/21 Stop Date: 01/15/23 Status: Ordered Tab-A-Jesse oral tablet 1 tablet, By Mouth, Daily, # 90 tablet, 9 Refills, [facility], 28, TAKE 1 TABLET [...] Required Details, Route to Pharmacy Electronically, [facility], 170,... Start Date: 11/25/21 Status: Ordered Vitamin B1 100 mg oral tablet 1, tablet, By Mouth, Daily, # 90 tablet, Refills 1, Route to Pharmacy Electronically, [facility], 174, cm, 02/27/21 15:17:00 EDT, Height, 81, kg, 02/27/21 14:06:00 EDT, Dry Weight Start Date: 06/16/21 Status: Ordered Xifaxan 550 mg oral tablet 1 tablet, By Mouth, 2 times a day, # 60 tablet, 1 Refills, [facility], 170, cm, 11/05/21 11:11:00 EDT, Height, [...] 1 Oxygen Saturation [94-100 %] 99 % (11/27/21 12:00 AM) Pulse Rate [55-90 bpm] 99 bpm *H* (11/27/21 12:00 AM) Blood Pressure [90-138/55-84 mm Hg] 143/ 78mm Hg *H* (11/27/21 12:00 AM) Respiratory Rate [16-30 br/min] 20 br/mi n (11/27/21 12:00 AM) Temperature [96.8-100.4 DegF] 97.9 DegF (11/27/21 12:00 AM) Mode of Delivery (Oxygen) Room air (11/27/21 12:00 AM) Blood pressure sites Arm, right (11/27/21 12:00 AM) Temperature Route Oral (11/27/21 12:00 AM) Social History Social History Type Response Smoking Status 10 or more cigarette s (1/2 pack or more)/day in last 30 days entered on: 02/04/19 Sex
--- OUTSIDE RECORDS SUMMARY | 2023-12-15 20:52 | XMS_ITS | Continuity of Care Document ---
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 Refills 5, Maintenance, 10/21/21 10:15:00 EDT, Route to Pharmacy Electronically, [facility], Partial fill upon patient request if the prescription is for a schedule II opioid drug.... Start Date: 10/21/21 Status: Ordered Co Q-10 100 mg oral capsule 1 capsule, By Mouth, 4 times a day, # 120 capsule, 6 Refills, [facility], 174, cm, 02/27/2115:17:00 EDT, Height, 81, kg, 02/27/21 14:06:00 EDT, Dry Weight Start Date: 07/08/21 Status: Ordered fluticasone 50 mcg/inh nasal spray See Instructions, USE 1 SPRAY INTO EACH NOSTRIL TWICE A DAY, # 16 Gm, 5 Refills, [facility], 30, USE 1 SPRAY INTO EACH NOSTRIL TWICE A DAY, 174, cm, 07/14/21 8:16:00 EST, Height, 81, kg, 02/27/21 14:06:00 EDT, Dry Weight Start Date: 08/04/21 Status: Ordered folic acid 1 mg oral tablet 1 mg, 1, tablet, By Mouth, Daily, # 90 tablet, Refills 4, Tot. Refills 4, Maintenance, 10/27/21 10:40:00 EDT, Route to Pharmacy Electronically, [facility], Partial fill upon patient request if the prescription is for a schedule II opioid drug.... Start Date: 10/27/21 Stop Date: 01/20/23 Status: Ordered gabapentin 300 mg oral capsule 300 mg, 1, capsule, By Mouth, Daily at bedtime, note dose change, # 90 capsule, Refills 4, Tot. Refills 4, Maintenance, 10/27/21 10:39:00 EDT, Route to Pharmacy Electronically, [facility], Partial fill upon patient request if the prescription... Start Date: 10/27/21 Stop Date: 01/20/23 Status: Ordered hydrOXYzine hydrochloride 25 mg oral tablet 1 TO 2 TABLETS, By Mouth, 3 times a day, PRN NEEDED FOR ANXIETY (VIAL), # 60 tablet, 0 Refills, [facility], 175, cm, 10/27/21 10:11:00 EDT, Height, 87, kg, 09/27/21 21:30:00 EDT, Dry Weight Start Date: 10/29/21 Status: Ordered lactulose 10 gm/15 ml oral syrup See Instructions, TAKE 30ML BY MOUTH THREE TIMES DAILY NEEDED TO ACHEIVE 3-4 BOWL MOVEMENTS PER DAY, # 3,000 mL, 10 Refills, [facility], 30, TAKE 30ML BY MOUTH THREE TIMES DAILY NEEDED TO ACHEIVE 3-4 BOWL MOVEMENTS PER DAY, 174, cm, 02/12... Start Date: 07/02/21 Status: Ordered Lasix 40 mg oral tablet 40 mg, 1, tablet, By Mouth, 2 times a day, # 60 tablet, Refills 1, Tot. Refills 1, Maintenance, 10/21/21 10:15:00 EDT, Route to Pharmacy [facility], [facility], Partial fill upon patient request if the prescription is for a schedule II opi... Start Date: 10/21/21 Stop Date: 12/20/21 Status: Ordered magnesium oxide 400 mg oral tablet 1 tablet, By Mouth, 2 times a day, # 60 tablet, 0 Refills, [facility], 175, cm, 10/27/21 10:11:00 EDT, Height, 87, kg, 09/27/21 21:30:00 EDT, Dry Weight Start Date: 10/29/21 Status: Ordered Melatonin 3 mg oral tablet 1 tablet, By Mouth, Daily at bedtime, PRN NEEDED FOR INSOMNIA (PACKAGE IN TRAY), # 60 tablet, 5 Refills, Maintenance, 06/02/21 16:17:00 EST, [facility], 28, 1 tablet By [...] 11:42:00 EDT, Route to Pharmacy Electronically, [facility], Partial fill upon patient request if the prescription is... Start Date: 10/22/21 Stop Date: 01/15/23 Status: Ordered Tab-A-Jesse oral tablet 1 tablet, By Mouth, Daily, # 90 tablet, 9 Refills, [facility], 28, TAKE 1 TABLET BY MOUTH ONCE A DAY, 174, cm, 07/14/21 8:16:00 EST, Height, 81, kg, 02/27/21 14:06:00 EDT, Dry Weight Start Date: 07/22/21 Status: Ordered traZODone 50 mg oral tablet See Instructions, TAKE 1 TO 2 TABLETS BY MOUTH AT BEDTIME (ONE DOSE IN VIAL), # 60 tablet, Refills 0, Instructions Replace Required Details, Route to Pharmacy Electronically, [facility], 175,cm, 10/27/21 10:11:00 EDT, Height, 87, kg, 09/27/21... Start Date: 10/29/21 Status: Ordered Vitamin B1 100 mg oral tablet 1, tablet, By Mouth, Daily, # 90 tablet, Refills 1, Route to Pharmacy Electronically, [facility], 174, cm, 02/27/21 15:17:00 EDT, Height, 81, kg, 02/27/21 14:06:00 EDT, Dry Weight Start Date: 06/16/21 Status: Ordered Xifaxan 550 mg oral tablet 1 tablet, By Mouth, 2 times a day, # 60 tablet, 1 Refills, [facility], 170, cm, 11/05/21 11:11:00 EDT, Height, [...]
--- OUTSIDE RECORDS SUMMARY | 2023-12-15 20:52 | XMS_ITS | Continuity of Care Document ---
Author Organization [facility] Address [address] [place] [address]- Care Team Providers Care Landscaping Specialist Name Role Phone Jany Baig DO Primary Care Physician [place] [facility] [place]23 [place] 04/18/23 [facility] [address] [place] [address]- Attending Physician: Venice Salmon Admitting Physician: Venice Salmon Referring Physician: AdmVenice david Allergies, Adverse Reactions, Alerts Substance Reaction Severity [...] Nikhil rded influenza virus vaccine, inactivated 02/12/18 Nikhli rded influenza virus vaccine, inactivated 2 04/29/17 Gi cleopatra influenza virus vaccine, inactivated 04/15/16 Give n influenza virus vaccine, inactivated 03/16/15 Give n influenza virus vaccine, inactivated 03/12/14 Give n influenza virus vaccine, inactivated 3 02/28/13 Gi cleopatra SARS-CoV-2 (COVID-19) mRNA-1273 vaccine 10/26/21 R ecorded SARS-CoV-2 (COVID-19) mRNA-1273 vaccine 03/10/21 [...] (oldterm) 08/02/12 Give n 1Result Comment: [facility]: [id number] 2Result Comment: [04/29/2017] 08302-278-13 3Admin Note: FLUARIX 4Admin Note: 3 RDINJ 5Admin Note: #2 Medications acamprosate 333 mg oral delayed release tablet 1 tablet = 333 mg, By Mouth, 3 times a day, # 42 tablet, 4 Refills, Maintenance, 11/05/22 11:31:00 EDT, EC Tablet, [facility], Partial fill upon patient request if the prescription is for a schedule II opioid drug., 175, cm, 11/05/22 10:21:00... Start Date: 11/05/22 Stop Date: 01/14/23 Status: Ordered amLODIPine 5 mg oral tablet 1 tablet, By Mouth, Daily, ^1R1., # 30 tablet, 5 Refills, Maintenance, 12/22/22 7:20:00 EDT, [facility], 175, cm, 12/03/22 11:50:00 EDT, Height, 88.9, kg, 10/21/22 20:41:00 EDT, Dry Weight Start Date: 12/22/22 Status: Ordered baclofen 10 mg oral tablet See Instructions, TAKE ONE TABLET BY MOUTH THREE TIMES A DAY ^1R1,1R2,1R4, # 90 tablet, Refills 5, Tot. Refills 5, Maintenance, 01/14/23 17:55:00 EDT, Instructions Replace Required Details, Route to Pharmacy Electronically, [facility], 175, cm... Start Date: 01/14/23 Status: Ordered calcium (as carbonate)-vitamin D 500 mg-400 intl units oral tablet 1 tablet, By Mouth, Daily, ^1R1., # 28 tablet, 0 Refills, Maintenance, 12/01/22 16:12:00 EDT, [facility], 28, 1 tablet By Mouth [...] 6 Refills, Maintenance, 12/03/22 12:13:00 EDT, [facility], 175, cm, 12/03/22 11:50:00 EDT, Height, [...] Gm, 12 Refills, Maintenance, 03/24/23 10:52:00 EDT, [facility], 28, APPLY TOPICALLY TO AFFECTED AREA(S) [...] 05/03/23 12:01:00 EST, 03/22/23 12:01:00 EDT, Tablet, [facility]/pharmacy #[id number], Partial fill upon patient [...] 03/20/23 16:22:00 EDT, Route to Pharmacy Electronically, [facility], 175, cm, 03/20/23 15:31:00 EDT, Height, 77.5, kg, 03/20/23 11:30:00 EDT, Dry Weight Start Date: 03/20/23 Status: Ordered furosemide 20 mg oral tablet 20 mg, 1, tablet, By Mouth, Every other day, # 30 tablet, Refills 3, Tot. Refills 3, Maintenance, 01/28/23 12:31:00 EDT, Route to Pharmacy Electronically, [facility], Partial fill upon patient request if the prescription is for a schedule II o... Start Date: 01/28/23 Status: Ordered gabapentin 300 mg oral capsule 300 mg, 1, capsule, By Mouth, Daily at bedtime, note dose/frequency change, # 90 capsule, Refills 4, Tot. Refills 4, Maintenance, 11/05/22 11:05:00 EDT, Route to Pharmacy Electronically, [facility], 175, cm, 11/05/22 10:21:00 EDT, Height, 88.9... Start Date: 11/05/22 Stop Date: 01/29/24 Status: Ordered hydrOXYzine hydrochloride 10 mg oral tablet 2 tablet, By Mouth, 2 times a day, PRN NEEDED FOR ANXIETY (VIAL), # 30 tablet, 3 Refills, Maintenance, 04/16/23 16:41:00 EDT, [facility], 175, cm, 03/22/23 6:50:00 EDT, Height, 77.5, kg, 03/20/23 11:30:00 EDT, Dry Weight Start Date: 04/16/23 Status: Ordered lactulose 10 gm/15 ml oral syrup 15 mL, By Mouth, 2 times a day, # 120 mL, 6 Refills, Maintenance, 02/26/23 10:11:00 EDT, [facility], 4, TAKE 15ML BY MOUTH TWO TIMES A DAY, 175, cm, 12/03/22 11:50:00 EDT, Height, 84, kg, 02/12/23 11:30:00 EDT, Dry Weight Start Date: 02/26/23 Status: Ordered magnesium oxide 400 mg oral tablet See Instructions, TAKE 1 TABLET BY MOUTH TWICE A DAY^1R1,1R4, # 60 tablet, 11 Refills, Maintenance,01/28/23 12:31:00 EDT, [facility], 175, cm, 12/03/22 11:50:00 EDT, Height, 88.9, kg, 10/21/22 20:41:00 EDT, Dry Weight Start Date: 01/28/23 Status: Ordered Melatonin 3 mg oral tablet 1 tablet, By Mouth, Daily at bedtime, PRN NEEDED FOR INSOMNIA (PACKAGE IN TRAY)^1R4, # 60 tablet, 5 Refills, Maintenance, 04/16/23 16:41:00 EDT, [facility], 60, TAKE 1 TABLET BY [...] 02/26/23 10:11:00 EDT, Route to Pharmacy Electronically, [facility], 175, cm, 12/03/22 11:50:00 EDT, Height, [...] 05/03/23 12:02:00 EST, 03/22/23 12:02:00 EDT, Capsule, [facility]/pharmacy #[id number], Partial fill upon patient request if the prescription is for a schedule II opioid drug., 175, c... Start Date: 03/22/23 Stop Date: 05/03/23 Status: Ordered spironolactone 25 mg oral tablet 1, tablet, By Mouth, Daily, ^1R2., # 30 tablet, Refills 5, Tot. Refills 5, Maintenance, 04/14/23 12:41:00 EDT, Route to Pharmacy Electronically, [facility], 175, cm, 03/22/23 6:50:00 EDT, Height, 77.5, kg, 03/20/23 11:30:00 EDT, Dry Weight Start Date: 04/14/23 Status: Ordered Tab-A-Jesse oral tablet 1 tablet, By Mouth, Daily, # 90 tablet, 1 Refills, 12/01/22 12:59:00 EDT, [facility], 28, 1tablet By Mouth Daily, 175, cm, 11/13/22 10:42:00 EDT, Height, 88.9, kg, 10/21/22 20:41:00 EDT, DryWeight Start Date: 12/01/22 Status: Ordered traZODone 50 mg oral tablet 2, tablet, By Mouth, Daily at bedtime, ^2R4., # 60 tablet, Refills 5, Maintenance, 02/26/23 10:11:00 EDT, Route to Pharmacy Electronically, [facility], 175, cm, 12/03/22 11:50:00 EDT, Height,84, [...] 02/09/23 23:18:00 EDT, Route to Pharmacy Electronically, [facility], 175, cm, 12/03/22 11:50:00 EDT, Height, 88.9, kg, 10/21/22 20:41:00 EDT, Dry Weight Start Date: 02/09/23 Status: Ordered Vitamin B6 50 mg oral tablet 1, tablet, By Mouth, Daily, R1., # 90 tablet, Refills 4, Maintenance, 11/16/22 13:39:00 EDT, Route to Pharmacy Electronically, [facility], 175, cm, 11/13/22 10:42:00 EDT, Height, [...] tablet, 3 Refills, Maintenance, 02/26/23 10:11:00 EDT, [facility], 175, cm, 12/03/22 11:50:00 EDT, Height, [...] Name: Andres Pressley RN Position: [facility] ED RN W/OE and Tasks Member Role: Primary Care Nurse Name: Jany Baig DO Position: [facility] Physician - Primary Care Member Role: PCP Address: Address: [address] [place] [address] Adult & Pediatric Medicine [place], [place] [address] Name: Kaye Payne RN Position: [facility] [...] Care Nurse Name: Ashok Kevin RN Position: [facility] RN Member Role: Primary Care Nurse Name: Cody Garcia Position: [facility] Associate Professional Member Role: Lifetime Consulting Provider Address: Address: [address] [place] [address]- Name: Paige Nascimento RN Position: [facility] RN Member Role: Primary Care Nurse Name: eG Covarrubias RN Position: [facility] RN Member Role: Primary Care Nurse Name: Orin Elmore RN Position: [facility] ED RN W/OE and Tasks Member Role: Primary Care Nurse Name: Allegra Liu RN Position: [facility] AMB Nurse Member Role: Primary Care Nurse Name: Shayan Pandya MD Position: [facility] Renal MD Member Role: Lifetime Consulting Physician Address: Address: [address] [place] [address] [address] [facility] [place] [address]- Name: Darlene Rodrigez RN Position: [facility] RN Member Role: Primary Care Nurse Name: Dolores Can RN Position: [facility] RN Member Role: Primary Care Nurse Name: Ingrid Verdugo RN Position: [facility] RN Member Role: Primary Care Nurse Name: Monica Rowell RN Position: [facility] RN Member Role: Primary Care Nurse Name: Jimi Fitzpatrick RN Position: [facility] RN Member Role: Primary Care Nurse Care Team Related Persons Name: MARLEN CABEZAS Address: [address] [place] [address] Name: CAWUMARLEN Address: home [address], [place] Name: RAULITO NICK Name: GEMA CABEZAS Address: [address] [place] [address]
--- OUTSIDE RECORDS SUMMARY | 2023-12-15 20:52 | XMS_ITS | Continuity of Care Document ---
Author Organization [facility] Address [address] [place] [id number]- Care Team Providers Care Linux System Administrator Name Role Phone Jany Baig DO Primary Care Physician [place] [facility] [place]21 [facility] [address] [place] [id number] Allergies, Adverse Reactions, Alerts Substance Reaction [...] (oldterm) 08/02/12 Give n 1Result Comment: [04/29/2017] 99222-938-53 2Admin Note: FLUARIX 3Admin Note: 3 RDINJ 4Admin Note: #2 Medications amLODIPine 5 mg oral tablet 5 mg, 1, tablet, By Mouth, Daily, # 30 tablet, Refills 5, Tot. Refills 5, Maintenance, 10/21/21 10:15:00 EDT, Route to Pharmacy Electronically, [facility], Partial fill upon patient request if the prescription is for a schedule II opioid drug.... Start Date: 10/21/21 Status: Ordered Co Q-10 100 mg oral capsule 1 capsule, By Mouth, 4 times a day, # 120 capsule, 6 Refills, [facility], 174, cm, 02/27/2115:17:00 EDT, Height, 81, kg, 02/27/21 14:06:00 EDT, Dry Weight Start Date: 07/08/21 Status: Ordered fluticasone 50 mcg/inh nasal spray See Instructions, USE 1 SPRAY INTO EACH NOSTRIL TWICE A DAY, # 16 Gm, 5 Refills, [facility], 30, USE 1 SPRAY INTO EACH NOSTRIL TWICE A DAY, 174, cm, 07/14/21 8:16:00 EST, Height, 81, kg, 02/27/21 14:06:00 EDT, Dry Weight Start Date: 08/04/21 Status: Ordered folic acid 1 mg oral tablet 1 mg, 1, tablet, By Mouth, Daily, # 90 tablet, Refills 4, Tot. Refills 4, Maintenance, 10/27/21 10:40:00 EDT, Route to Pharmacy Electronically, [facility], Partial fill upon patient request if the prescription is for a schedule II opioid drug.... Start Date: 10/27/21 Stop Date: 01/20/23 Status: Ordered gabapentin 300 mg oral capsule 300 mg, 1, capsule, By Mouth, Daily at bedtime, note dose change, # 90 capsule, Refills 4, Tot. Refills 4, Maintenance, 10/27/21 10:39:00 EDT, Route to Pharmacy Electronically, [facility], Partial fill upon patient request if the prescription... Start Date: 10/27/21 Stop Date: 01/20/23 Status: Ordered hydrOXYzine hydrochloride 25 mg oral tablet 1 TO 2 TABLETS, By Mouth, 3 times a day, PRN NEEDED FOR ANXIETY (VIAL), # 60 tablet, 0 Refills, [facility], 175, cm, 10/27/21 10:11:00 EDT, Height, 87, kg, 09/27/21 21:30:00 EDT, Dry Weight Start Date: 10/29/21 Status: Ordered lactulose 10 gm/15 ml oral syrup See Instructions, TAKE 30ML BY MOUTH THREE TIMES DAILY NEEDED TO ACHEIVE 3-4 BOWL MOVEMENTS PER DAY, # 3,000 mL, 10 Refills, [facility], 30, TAKE 30ML BY MOUTH THREE TIMES DAILY NEEDED TO ACHEIVE 3-4 BOWL MOVEMENTS PER DAY, 174, cm, 02/12... Start Date: 07/02/21 Status: Ordered Lasix 40 mg oral tablet 40 mg, 1, tablet, By Mouth, 2 times a day, # 60 tablet, Refills 1, Tot. Refills 1, Maintenance, 10/21/21 10:15:00 EDT, Route to Pharmacy Electronically, [facility], Partial fill upon patient request if the prescription is for a schedule II opi... Start Date: 10/21/21 Stop Date: 12/20/21 Status: Ordered Lasix 40 mg oral tablet 40 mg, 1, tablet, By Mouth, 2 times a day, Refills 0, Maintenance, 09/17/21 10:57:00 EDT, Partial fill upon patient request if the prescription is for a schedule II opioid drug. Start Date: 09/17/21 Status: Ordered magnesium oxide 400 mg oral tablet 1 tablet, By Mouth, 2 times a day, # 60 tablet, 0 Refills, [facility], 175, cm, 10/27/21 10:11:00 EDT, Height, [...] EDT, Route to Pharmacy Electronically, [facility], Partial fill upon patient request if the prescription is... Start Date: 10/22/21 Stop Date: 01/15/23 Status: Ordered rifAXIMin 550 mg oral tablet 1 tablet = 550 mg, By Mouth, 2 times a day, please contact GI for refills, # 60 tablet, 0 Refills, Maintenance, 10/21/21 10:15:00 EDT, Tablet, [facility], Partial fill upon patient request ifthe prescription is for a schedule II opioid drug.,... Start Date: 10/21/21 Stop Date: 11/20/21 Status: Ordered Tab-A-Jesse oral tablet 1 tablet, [...] Pharmacy Electronically, [facility], 175,cm, 10/27/21 10:11:00 EDT, Height, 87, kg, 09/27/21... Start Date: 10/29/21 Status: Ordered Vitamin B1 100 mg oral tablet 1, tablet, By Mouth, Daily, # 90 tablet, Refills 1, Route to Pharmacy Electronically, [facility], 174, cm, 02/27/21 15:17:00 EDT, [...]
--- OUTSIDE RECORDS SUMMARY | 2023-12-15 20:52 | XMS_ITS | Continuity of Care Document ---
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 Refills 0, Maintenance, 10/07/20 16:49:00 EDT, Route to Pharmacy Electronically, [facility], 178, cm, 08/31/20 11:25:00 EDT, Height, 84.9, kg, 08/31/20 1:07:00 EDT, Dry Weight Start Date: 10/07/20 Status: Ordered chantix 1mg tablet 1 tablet, By Mouth, 2 times a day, # 56 tablet, 0 Refills, Maintenance, 11/01/20 15:08:00 EDT, [facility], 178, cm, 10/22/20 13:17:00 EDT, Height, 84.9, kg, 08/31/20 1:07:00 EDT, Dry Weight Start Date: 11/01/20 Status: Ordered Co Q-10 100 mg oral capsule See Instructions, TAKE 1 CAPSULE BY MOUTH FOUR TIMES DAILY, # 120 capsule, 7 Refills, Maintenance, [facility], 178, cm, 10/22/20 13:17:00 EDT, Height, 84.9, kg, 08/31/20 1:07:00 EDT, Dry Weight Start Date: 11/01/20 Status: Ordered Co Q-10 100 mg oral capsule 1 capsule, By Mouth, 4 times a day, # 120 capsule, 11 Refills, Maintenance, 11/21/19 10:36:00 EDT, [facility]/pharmacy #[id number], 175, cm, 08/24/19 14:14:00 EDT, Height, 81.2, kg, 02/04/19 1:40:00 EDT, Dry Weight Start Date: 11/21/19 Stop Date: 11/15/20 Status: Ordered fluticasone 50 mcg/inh nasal spray See Instructions, SPRAY 1 SPRAY INTO EACH NOSTRIL TWICE A DAY, # 16 Gm, 5 Refills, 07/09/20 11:38:00 EST, [facility], 30, SPRAY 1 SPRAY INTO EACH NOSTRIL TWICE A DAY, 175, cm, 04/02/20 0:35:00 EDT, Height, 100, kg, 04/02/20 0:35:00 EDT, Dry We... Start Date: 07/09/20 Status: Ordered gabapentin 600 mg oral tablet 1 tablet, By Mouth, 4 times a day, # 120 tablet, 0 Refills, Maintenance, 10/07/20 16:49:00 EDT, [facility], 178, cm, 08/31/20 11:25:00 EDT, Height, 84.9, kg, 08/31/20 1:07:00 EDT, Dry Weight Start Date: 10/07/20 Status: Ordered hydrOXYzine hydrochloride 25 mg oral tablet 1 TO 2 TABLETS, By Mouth, 3 times a day, PRN NEEDED FOR ANXIETY (VIAL), # 60 tablet, 3 Refills, Maintenance, 10/07/20 16:49:00 EDT, [facility], 178, cm, 08/31/20 11:25:00 EDT, Height, 84.9, kg, 08/31/20 1:07:00 EDT, Dry Weight Start Date: 10/07/20 Status: Ordered Keppra 500 mg oral tablet 1 tablet = 500 mg, By Mouth, 2 times a day, # 14 tablet, 0 Refills, Maintenance, 11/01/20 11:59:00 EDT, Tablet, [facility], Partial fill upon patient request if the prescription is for a schedule II opioid drug., 178, cm, 10/22/20 13:17:... Start Date: 11/01/20 Stop Date: 11/08/20 Status: Ordered lactulose 10 gm/15 ml oral syrup 30 mL = 20 Gm, By Mouth, 3 times a day, PRN Other, for 30 days, PRN to acheive 3-4 BMs per day fillin prefilled syringes, # 3,000 mL, 11 Refills, Acute 11/25/20 16:37:00 EDT, 12/01/19 16:37:00 EDT, Syrup, [facility], re sent from 10/04/17, 30... Start Date: 12/01/19 Stop Date: 11/25/20 Status: Ordered melatonin 3 mg oral tablet 1 tablet = 3 mg, By Mouth, Daily at bedtime, PRN for insomnia, # 60 tablet, 4 Refills, Maintenance,07/18/20 17:30:00 EST, Tablet, [facility], 175, cm, 04/02/20 0:35:00 [...] 1 Refills, Maintenance, 10/06/19 15:57:00 EDT, Tablet, [facility], 175, cm, 08/24/19 14:14:00 EDT,Height, 81.2, kg, 02/04/19 1:40:00 EDT, Dry Weight Start Date: 10/06/19 Status: Ordered sertraline 50 mg oral tablet 1 tablet, By Mouth, Daily, TAKE ALONG WITH A 100MG TABLET to equal 150mg daily, # 90 tablet, 1 Refills, Maintenance, 10/06/19 15:57:00 EDT, [facility], 175, cm, 08/24/19 14:14:00 EDT, Height,81.2, kg, 02/04/19 1:40:00 EDT, Dry Weight Start Date: 10/06/19 Status: Ordered sildenafil 50 mg oral tablet 1 tablet = 50 mg, By Mouth, Daily, PRN erectile dysfunction, 1 hour before sexual activity, # 6 tablet, 5 Refills, Maintenance, 03/11/20 14:37:00 EDT, Tablet, [facility]/pharmacy #[id number], 175, cm, 08/24/19 14:14:00 EDT, Height, 81.2, kg, 02/04/19 1:40:00 EDT,... Start Date: 03/11/20 Status: Ordered Tab-A-Jesse oral tablet See Instructions, TAKE 1 TABLET BY MOUTH ONCE A DAY, # 30 tablet, 10 Refills, Maintenance, [facility], 28, TAKE 1 TABLET [...] 0 Refills, Maintenance, 10/22/20 17:52:00 EDT, Tablet, [facility]/pharmacy #[id number], Partial fill upon patient request [...] Replace Required Details, Route to Pharmacy Electronically, [facility], 178, cm, 10/22/20... Start Date: 11/01/20 Status: Ordered Vitamin B1 100 mg oral tablet 1, tablet, By Mouth, Daily, # 90 tablet, Refills 2, Tot. Refills 0, Acute, 09/05/20 17:32:00 EDT, Route to Pharmacy Electronically, [facility], 178, cm, 08/31/20 11:25:00 EDT, [...]
--- OUTSIDE RECORDS SUMMARY | 2023-12-15 20:52 | XMS_ITS | Continuity of Care Document ---
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 Name Role Phone Jany Baig DO Primary Care Physician Encounter [facility] Date(s): 08/10/23 - 08/17/23 [facility] [address] [place] [address]- Encounter Diagnosis Alcohol abuse(Discharge Diagnosis) - 08/10/23 Alcoholic hepatitis, cirrhosis(Discharge Diagnosis) - 08/10/23 History of encephalopathy(Discharge Diagnosis) - 08/10/23 History of cellulitis(Discharge Diagnosis) - 08/10/23 Attending Physician: Rey LEE, Faustina Hill Allergies, Adverse Reactions, Alerts Substance Reaction Severity [...] Give n 1Result Comment: [facility]: 28673-212-80 2Result Comment: [04/29/2017] 49137-311-36 3Admin Note: FLUARIX 4Admin Note: 3 RDINJ 5Admin Note: #2 Medications acamprosate 333 mg oral delayed release tablet 2 tablet = 666 mg, By Mouth, 3 times a day, # 180 tablet, 1 Refills, Maintenance, 07/28/23 11:04:00EST, EC Tablet, [facility], Partial fill upon patient request if [...] tablet, 2 Refills, Maintenance, 07/28/23 11:06:00 EST, [facility], 175, cm, 07/28/23 9:11:00 EST, Height, 61.3, kg, 07/12/23 23:27:00 EST, Dry Weight Start Date: 07/28/23 Status: Ordered amLODIPine 5 mg oral tablet 1 tablet, By Mouth, Daily, ^1R1., # 30 tablet, 2 Refills, Maintenance, 06/02/23 8:00:00 EST, [facility], 175, cm, 03/22/23 6:50:00 EDT, Height, 77.5, [...] 07/28/23 11:10:00 EST, Route to Pharmacy Electronically, [facility], Partial fill upon patient request if [...] Gm, 12 Refills, Maintenance, 07/28/23 11:06:00 EST, [facility], 28, APPLY TOPICALLY TO AFFECTED AREA(S) [...] Gm, 1 Refills, Maintenance, 07/28/23 12:07:00 EST, [facility], 30, USE 1 SPRAY(S) INTO EACH [...] 07/28/23 12:08:00 EST, Route to Pharmacy Electronically, [facility], 175, cm, 07/28/23 9:11:00 EST, Height, 61.3, kg, 07/12/23 23:27:00 EST, Dry Weight Start Date: 07/28/23 Status: Ordered furosemide 20 mg oral tablet 20 mg, 1, tablet, By Mouth, Every other day, # 30 tablet, Refills 1, Tot. Refills 1, Maintenance, 07/28/23 12:08:00 EST, Route to Pharmacy Electronically, [facility], Partial fill upon patient request if the prescription is for a schedule II... Start Date: 07/28/23 Status: Ordered gabapentin 300 mg oral capsule 300 mg, 1, capsule, By Mouth, Daily at bedtime, note dose/frequency change, # 30 capsule, Refills 1, Tot. Refills 1, Maintenance, 07/28/23 12:09:00 EST, Route to Pharmacy Electronically, [facility], 175, cm, 07/28/23 9:11:00 EST, Height, [...] tablet, 3 Refills, Maintenance, 07/28/23 12:10:00 EST, [facility], 175, cm, 07/28/23 9:11:00 EST, Height, 61.3, kg,07/12/23 23:27:00 EST, Dry Weight Start Date: 07/28/23 Status: Ordered lactulose 10 gm/15 ml oral syrup 30 mL = 20 Gm, By Mouth, 3 times a day, for 30 days, # 2,700 mL, 2 Refills, Acute 10/26/23 12:13:00EDT, 07/28/23 12:13:00 EST, Syrup, [facility], Partial fill upon patient request if [...] 60 tablet, 11 Refills, Maintenance,07/28/23 12:09:00 EST, [facility], 175, cm, 07/28/23 9:11:00 EST, Height, [...] tablet, 5 Refills, Maintenance, 07/28/23 12:09:00 EST, [facility], 60, 1 tablet By Mouth Daily [...] 07/28/23 12:11:00 EST, Route to Pharmacy Electronically, [facility], 175, cm, 07/28/23 9:11:00EST, Height, 61.3, [...] 07/28/23 12:12:00 EST, Route to Pharmacy Electronically, [facility], 175, cm, 07/28/23 9:11:00 EST, Height, 61.3, kg, 07/12/23 23:27:00 EST, Dry Weight Start Date: 07/28/23 Status: Ordered spironolactone 25 mg oral tablet 1, tablet, By Mouth, Daily, ^1R2., # 30 tablet, Refills 5, Tot. Refills 5, Maintenance, 04/14/23 12:41:00 EDT, [facility], 175, cm, 12/03/22 11:50:00 EDT, Height,84, kg, 02/12/23 11:30:00 EDT, Dry Weight Start Date: 02/26/23 Status: Ordered traZODone 50 mg oral tablet 2, tablet, By Mouth, Daily at bedtime, ^2R4., # 60 tablet, Refills 5, Tot. Refills 5, Maintenance, 07/28/23 12:12:00 EST, Route to Pharmacy Electronically, [facility], 175, cm, 07/28/23 9:11:00 EST, Height, [...] 07/28/23 12:12:00 EST, Route to Pharmacy Electronically, [facility], 175, cm, 07/28/23 9:11:00 EST, Height, 61.3, kg, 07/12/23 23:27:00 EST, Dry Weight Start Date: 07/28/23 Status: Ordered Vitamin B6 50 mg oral tablet 1, tablet, By Mouth, Daily, R1., # 90 tablet, Refills 4, Maintenance, 11/16/22 13:39:00 EDT, Route to Pharmacy Electronically, [facility], 175, cm, 11/13/22 10:42:00 EDT, Height, 88.9, kg, 10/21/22 20:41:00 EDT, Dry Weight Start Date: 11/16/22 Status: Ordered Vitamin B6 50 mg oral tablet 1, tablet, By Mouth, Daily, R1., # 90 tablet, Refills 4, Tot. Refills 4, Maintenance, 07/28/23 12:11:00 EST, Route to Pharmacy Electronically, [facility], 175, cm, 07/28/23 9:11:00 EST, Height, [...] each, 1 Refills, Maintenance, 07/28/23 14:33:00 EST, [facility], 175, cm, 07/28/23 9:11:00 EST, Height, [...] Clinical Service Informant Alcohol abuse Discharge Diagnosis 08/10/23 Alcoholic hepatitis, cirrhosis Discharge Diagnosis 08/10/23 History of encephalopathy Discharge Diagnosis 2/27/24 History of cellulitis Discharge Diagnosis 08/10/23 Vital Signs Most recent to oldest [Reference Range]: 1 Height 175 cm (08/10/23 1:56 PM) Weight 81.3 kg (08/10/23 1:56 PM) Oxygen Saturation [94-100 %] 98 % (08/10/23 1:56 PM) Pulse Rate [55-90 bpm] 99 bpm *H* (08/10/23 1:56 PM) Body Mass Index [18.5-24.99 kg/m2] 26.55 kg/m2 *H* (08/10/23 1:56 PM) Blood Pressure [90-138/55-84 mm Hg] 121/ 75mm Hg (08/10/23 1:56 PM) Mode of Delivery (Oxygen) Room air (08/10/23 1:56 PM) Blood pressure sites Arm, left (08/10/23 1:56 PM) Weight Obtained Via Standing scale (08/10/23 1:56 PM) Social History Social History Type Response Smoking Status 10 or more cigarette s (1/2 pack or more)/day in last 30 days entered on: 02/04/19 Sex Patient Care team information Care Team Personnel Name: Shira Galindo RN Position: [facility] RN Member Role: Primary Care Nurse Name: Lisa Nunez RN Position: [facility] RN Member Role: Primary Care Nurse Name: Alexandra Colmenares RN Position: [facility] ED RN W/OE and Tasks Member Role: Primary Care Nurse Name: Garima Manzano RN Position: [facility] RN Member Role: Primary Care Nurse Name: Malgorzata Marinelli RN Position: [facility] RN Member Role: Primary Care Nurse Name: Joyce Roach RN Position: [facility] ED RN W/OE and Tasks Member Role: Primary Care Nurse Name: Mary Suazo RN Position: S RN Member Role: Primary Care Nurse Name: Lucina Peralta RN Position: S RN Member Role: Primary Care Nurse Name: Maria Esther Craig LPN Position: [facility] RN Member Role: Primary Care Nurse Name: Andres Pressley RN Position: [facility] ED RN W/OE and Tasks Member Role: Primary Care Nurse Name: Jany Baig DO Position: [facility] Physician - Primary Care Member Role: PCP Address: Address: [address] [place] [address] Adult [facility] [place] [address]- Name: Kaye Payne RN Position: [facility] RN Member Role: Primary Care Nurse Name: Garima Curry RN Position: [facility] RN Member Role: Primary Care Nurse Name: Malgorzata Austin Position: [facility] RN Member Role: Primary Care Nurse Name: Ibeth Adams RN Position: [facility] RN Member Role: Primary Care Nurse Name: Torrie Hernandez RN Position: [facility] OB RN Member Role: Primary Care Nurse Name: Gretchen Knutson RN Position: [facility] SN RN Member Role: Primary Care Nurse Name: Aislinn Mckee RN Position: [facility] RN Member Role: Primary Care Nurse Name: Ashley Mcelroy Position: [facility] RN Member Role: Primary Care Nurse Name: Ashok Kevin RN Position: [facility] RN Member Role: Primary Care Nurse Name: Cody Garcia Position: [facility] Associate Professional Member Role: Lifetime Consulting Provider Address: Address: [address] [place] [address]- Name: Paige Nascimento RN Position: [facility] RN Member Role: Primary Care Nurse Name: Ge Covarrubias RN Position: [facility] RN Member Role: Primary Care Nurse Name: Orin Elmore RN Position: [facility] ED RN W/OE and Tasks Member Role: Primary Care Nurse Name: Allegra Liu RN Position: [facility] AMB Nurse Member Role: Primary Care Nurse Name: Shayan Pandya MD Position: [facility] Renal MD Member Role: Lifetime Consulting Physician Address: Address: [address] [place] [address] [address] [facility], [place] [address]- Name: Kimberley Pittman RN Position: [facility] RN Member Role: Primary Care Nurse Name: Darlene Rodrigez RN Position: [facility] RN Member Role: Primary Care Nurse Name: Dixie Duke RN Position: [facility] RN Member Role: Primary Care Nurse Name: Kwan Mills RN Position: [facility] ED RN W/OE and Tasks Member Role: Primary Care Nurse Name: Ingrid Verdugo RN Position: S RN Member Role: Primary Care Nurse Name: Monica Rowell RN Position: S RN Member Role: Primary Care Nurse Name: Jimi Fitzpatrick RN Position: S RN Member Role: Primary Care Nurse Care Team Related Persons Name: LEONILA CABEZASARA Address: home [address] [place] [id number] Name: MARLEN CABEZAS Address: home [address] [place] [id number] Name: NICK CABEZAS Name: GEMA CABEZAS Address: home [address] [place] [address] Name: ELTON CHENG Address: home [address] [place] [id number]
--- OUTSIDE RECORDS SUMMARY | 2023-12-15 20:52 | XMS_ITS | Continuity of Care Document ---
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 Role Phone Jany Baig DO Primary Care Physician Encounter [facility] Date(s): 10/28/22 - 11/27/22 [facility] [address] [place] [address]- [place] Allergies, Adverse Reactions, Alerts Substance Reaction [...] Give n 1Result Comment: [facility]: 61313-195-22 2Result Comment: [04/29/2017] [id number] 3Admin Note: FLUARIX 4Admin Note: 3 RDINJ 5Admin Note: #2 Medications acamprosate 333 mg oral delayed release tablet 1 tablet = 333 mg, By Mouth, 3 times a day, # 42 tablet, 4 Refills, Maintenance, 11/05/22 11:31:00 EDT, EC Tablet, [facility], Partial fill upon patient request if the prescription is for a schedule II opioid drug., 175, cm, 11/05/22 10:21:00... Start Date: 11/05/22 Stop Date: 01/14/23 Status: Ordered amLODIPine 5 mg oral tablet 1 tablet, By Mouth, Daily, ^1R1., # 30 tablet, 2 Refills, Maintenance, 10/06/22 4:58:00 EDT, [facility], 176, cm, 09/07/22 8:56:00 EDT, Height, 82.1, kg, 09/07/22 8:59:00 EDT, Dry Weight Start Date: 10/06/22 Status: Ordered baclofen 10 mg oral tablet See Instructions, TAKE 1 TABLET BY MOUTH THREE TIMES DAILY, # 90 tablet, Refills 0, Maintenance, 08/07/22 12:26:00 EST, Instructions Replace Required Details, Route to Pharmacy Electronically, [facility], 176, cm, 08/07/22 11:37:00 EST, Height... Start Date: 08/07/22 Status: Ordered calcium (as carbonate)-vitamin D 500 mg-400 intl units oral tablet 1 tablet, By Mouth, Daily, ^1R1., # 28 tablet, 0 Refills, Maintenance, 10/08/22 16:58:00 EDT, [facility], 28, TAKE ONE TABLET BY [...] capsule, 6 Refills, Maintenance, 08/07/22 12:13:00 EST, [facility], 176, cm, 08/07/22 11:37:00 EST, [...] Gm, 11 Refills, Maintenance, 08/07/22 12:12:00 EST, [facility] #[id number], 30, USE 1 SPRAY(S) INTO EACH NOSTRIL TWICE A DAY, 176, cm,08/07/22 11:37:00 EST, Height, 79.8, kg, 07/31/22 2... Start Date: 08/07/22 Status: Ordered folic acid 1 mg oral tablet 1, tablet, By Mouth, Daily, R1., # 30 tablet, Refills 5, Tot. Refills 5, Maintenance, 10/06/22 4:59:00 EDT, Route to Pharmacy Electronically, [facility], 176, cm, 09/07/22 8:56:00 EDT, Height, [...] 09/03/22 14:50:00 EDT, Route to Pharmacy Electronically, [facility], 169, cm, 09/03/22 14:21:00 EDT, Height, 69, kg, 08/16/22 1:04:00 EST, Dry Weight Start Date: 09/03/22 Status: Ordered gabapentin 300 mg oral capsule 300 mg, 1, capsule, By Mouth, Daily at bedtime, note dose/frequency change, # 90 capsule, Refills 4, Tot. Refills 4, Maintenance, 11/05/22 11:05:00 EDT, Route to Pharmacy Electronically, [facility], 175, cm, 11/05/22 10:21:00 EDT, Height, 88.9... Start Date: 11/05/22 Stop Date: 01/29/24 Status: Ordered hydrOXYzine hydrochloride 10 mg oral tablet 2 tablet, By Mouth, 2 times a day, PRN NEEDED FOR ANXIETY (VIAL), # 30 tablet, 3 Refills, Maintenance, 09/24/22 17:01:00 EDT, [facility], 176, cm, 09/07/22 8:56:00 EDT, Height, 82.1, kg, 09/07/22 8:59:00 EDT, Dry Weight Start Date: 09/24/22 Status: Ordered lactulose 10 gm/15 ml oral syrup 15 mL, By Mouth, 2 times a day, # 120 mL, 6 Refills, Maintenance, 09/22/22 12:15:00 EDT, [facility], 4, TAKE 15ML BY MOUTH TWO TIMES A DAY, 176, cm, 09/07/22 8:56:00 EDT, Height, 82.1, kg, 09/07/22 8:59:00 EDT, Dry Weight Start Date: 09/22/22 Status: Ordered Lidoderm 5% film 1 patch, Topically, Daily, remove patches after 12 hours NSAIDS contraindicated High dose tylenol contraindicated remove patches after 12 hours Nueropathy, # 30 patch, 5 Refills, Maintenance, 11/05/22 11:04:00 EDT, [facility], Partial klaudia... Start Date: 11/05/22 Status: Ordered Melatonin 3 mg oral tablet 1 tablet, By Mouth, Daily at bedtime, PRN NEEDED FOR INSOMNIA (PACKAGE IN TRAY)^1R4, # 60 tablet, 5 Refills, Maintenance, 06/12/22 18:11:00 EST, [facility], 60, TAKE 1 TABLET BY MOUTH [...] 09/03/22 14:53:00 EDT, Route to Pharmacy Electronically, [facility], Partial fill upon patient request if [...] 11/05/22 11:31:00 EDT, Route to Pharmacy Electronically, [facility], Partial fill upon patient request if the prescription is for a schedule II opioid drug... Start Date: 11/05/22 Status: Ordered Tab-A-Jesse oral tablet 1 tablet, By Mouth, Daily, # 90 tablet, 9 Refills, 08/07/22 12:27:00 EST, [facility]/pharmacy #[id number], 28, 1tablet By Mouth Daily, 176, cm, 08/07/22 11:37:00 EST, Height, 79.8, kg, 07/31/22 22:40:00 EST, DryWeight Start Date: 08/07/22 Status: Ordered traZODone 50 mg oral tablet 2 tablets, By Mouth, Daily at bedtime, # 60 each, Refills 5, Tot. Refills 5, Maintenance, 09/03/22 17:13:00 EDT, Route to Pharmacy Electronically, [facility], 169, cm, 09/03/22 14:21:00 EDT, Height, [...] 03/13/22 8:37:00 EDT, Route to Pharmacy Electronically, [facility], 175, cm, 01/06/22 10:34:00 EDT, Height, 78.3, kg, 12/26/2218:05:00 EDT, Dry Weight Start Date: 03/13/22 Status: Ordered Vitamin B6 50 mg oral tablet 1, tablet, By Mouth, Daily, R1., # 90 tablet, Refills 4, Maintenance, 11/16/22 13:39:00 EDT, Route to Pharmacy Electronically, [facility], 175, cm, 11/13/22 10:42:00 EDT, Height, 88.9, kg, 10/21/22 20:41:00 EDT, Dry Weight Start Date: 11/16/22 Status: Ordered Voltaren 1% topical gel 1 application, Topically, 4 times a day, PRN for pain, # 100 Gm, 0 Refills, Maintenance, 11/13/22 11:22:00 EDT, Gel, [facility], Partial fill upon patient request if [...] tablet, 3 Refills, Maintenance, 10/01/22 15:19:00 EDT, [facility], 176, cm, 09/07/22 8:56:00 EDT, Height, [...] Team Personnel Name: Alexandra Colmenares RN Position: [facility] ED RN W/OE and Tasks Member Role: Primary Care Nurse Name: Garima Manzano RN Position: S RN Member Role: Primary Care Nurse Name: Malgorzata Marinelli RN Position: S RN Member Role: Primary Care Nurse Name: Joyce Roach RN Position: [facility] RN Member Role: Primary Care Nurse Name: Mary Suazo RN Position: [facility] RN Member Role: Primary Care Nurse Name: Andres Pressley RN Position: [facility] RN Member Role: Primary Care Nurse Name: Jany Baig DO Position: [facility] Physician - Primary Care Member Role: PCP Address: Address: [address] [place] [address] Adult [place] [address]- Name: Neida Ballard RN Position: [facility] RN Member Role: Primary Care Nurse Name: Kaye Payne RN Position: [facility] RN Member Role: Primary Care Nurse Name: Garima Hutchinson Position: [facility] RN Member Role: Primary Care Nurse Name: Malgorzata Austin Position: [facility] RN Member Role: Primary Care Nurse Name: Ibeth Adams RN Position: [facility] RN Member Role: Primary Care Nurse Name: Torrie Hernandez RN Position: [facility] OB RN Member Role: Primary Care Nurse Name: Gretchen Knutson RN Position: [facility] SN RN Member Role: Primary Care Nurse Name: Aislinn Mckee RN Position: [facility] RN Member Role: Primary Care Nurse Name: Ashley Mcelroy Position: [facility] RN Member Role: Primary Care Nurse Name: Cody Garcia Position: [facility] Associate Professional Member Role: Lifetime Consulting Provider Address: Address: [address] [place] [address]- Name: Ge Covarrubias RN Position: [facility] RN Member Role: Primary Care Nurse Name: Orin Elmore RN Position: [facility] ED RN W/OE and Tasks Member Role: Primary Care Nurse Name: Allegra Liu RN Position: [facility] AMB Nurse Member Role: Primary Care Nurse Name: Shayan Pandya MD Position: [facility] Renal MD Member Role: Lifetime Consulting Physician Address: Address: [address] [place] [address] [address] [facility] [place] [address]- Name: Darlene Rodrigez RN Position: [facility] RN Member Role: Primary Care Nurse Name: Kwan Mills RN Position: [facility] RN Member Role: Primary Care Nurse Name: Dolores Can RN Position: [facility] RN Member Role: Primary Care Nurse Name: Kim Rendon RN Position: S RN Member Role: Primary Care Nurse Name: Monica Rowell RN Position: S RN Member Role: Primary Care Nurse Name: Jimi Fitzpatrick RN Position: [facility] RN Member Role: Primary Care Nurse Care Team Related Persons Name: MARLEN CABEZAS Address: [place] [address] Name: MARLEN CABEZAS Address: [place] [address] Name: NICK CABEZAS Name: GEMA CABEZAS Address: [place] [address]
--- OUTSIDE RECORDS SUMMARY | 2023-12-15 20:52 | XMS_ITS | Continuity of Care Document ---
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 Refills 0, Maintenance, 12/25/20 8:36:00 EDT, Route to Pharmacy Electronically, [facility], 178, cm, 12/03/20 13:52:00 EDT, Height, 81.4, kg, 12/03/20 13:52:00 EDT, Dry Weight Start Date: 12/25/20 Status: Ordered chantix 1mg tablet 1 tablet, By Mouth, 2 times a day, # 56 tablet, 0 Refills, Acute, 11/22/20 16:13:00 EDT, [facility], 178, cm, 11/12/20 15:32:00 EDT, Height, 84.9, kg, 08/31/20 1:07:00 EDT, Dry Weight Start Date: 11/22/20 Status: Ordered Co Q-10 100 mg oral capsule See Instructions, TAKE 1 CAPSULE BY MOUTH FOUR TIMES DAILY, # 120 capsule, 7 Refills, Maintenance, [facility], 178, cm, 10/22/20 13:17:00 EDT, [...] 16 Gm, 5 Refills, 07/09/20 11:38:00 EST, [facility], 30, SPRAY 1 SPRAY INTO EACH NOSTRIL TWICE A DAY, 175, cm, 04/02/20 0:35:00 EDT, Height, 100, kg, 04/02/20 0:35:00 EDT, Dry We... Start Date: 07/09/20 Status: Ordered gabapentin 600 mg oral tablet 1 tablet, By Mouth, 4 times a day, # 120 tablet, 0 Refills, Maintenance, 12/25/20 8:36:00 EDT, [facility], 178, cm, 12/03/20 13:52:00 EDT, Height, 81.4, kg, 12/03/20 13:52:00 EDT, Dry Weight Start Date: 12/25/20 Status: Ordered hydrOXYzine hydrochloride 25 mg oral tablet 1 TO 2 TABLETS, By Mouth, 3 times a day, PRN NEEDED FOR ANXIETY (VIAL), # 60 tablet, 3 Refills, Maintenance, 10/07/20 16:49:00 EDT, [facility], 178, cm, 08/31/20 11:25:00 EDT, Height, 84.9, kg, 08/31/20 1:07:00 EDT, Dry Weight Start Date: 10/07/20 Status: Ordered Keppra 500 mg oral tablet 1 tablet = 500 mg, By Mouth, 2 times a day, # 14 tablet, 0 Refills, Maintenance, 11/01/20 11:59:00 EDT, Tablet, [facility] 3, Partial fill upon patient request if the prescription is for a schedule II opioid drug., 178, cm, 10/22/20 13:17:... Start Date: 11/01/20 Stop Date: 11/08/20 Status: Ordered melatonin 3 mg oral tablet 1 tablet = 3 mg, By Mouth, Daily at bedtime, PRN for insomnia, # 60 tablet, 4 Refills, Maintenance,07/18/20 17:30:00 EST, Tablet, [facility], 175, cm, 04/02/20 0:35:00 EDT, [...] 1 Refills, Maintenance, 10/06/19 15:57:00 EDT, Tablet, [facility], 175, cm, 08/24/19 14:14:00 EDT,Height, 81.2, kg, 02/04/19 1:40:00 EDT, Dry Weight Start Date: 10/06/19 Status: Ordered sertraline 50 mg oral tablet 1 tablet, By Mouth, Daily, TAKE ALONG WITH A 100MG TABLET to equal 150mg daily, # 90 tablet, 1 Refills, Maintenance, 10/06/19 15:57:00 EDT, [facility], 175, cm, 08/24/19 14:14:00 EDT, [...] DAY, # 30 tablet, 10 Refills, Maintenance, [facility], 28, TAKE 1 TABLET BY [...] Replace Required Details, Route to Pharmacy Electronically, [facility], 178, cm, 10/22/20... Start Date: 11/01/20 Status: Ordered Vitamin B1 100 mg oral tablet 1, tablet, By Mouth, Daily, # 90 tablet, Refills 2, Tot. Refills 0, Acute, 09/05/20 17:32:00 EDT, Route to Pharmacy Electronically, [facility], 178, cm, 08/31/20 11:25:00 EDT, [...]
--- OUTSIDE RECORDS SUMMARY | 2023-12-15 20:52 | XMS_ITS | Continuity of Care Document ---
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 Role Phone Jany Baig DO Primary Care Physician ( [phone] Encounter [facility] Date(s): 01/01/22 - 01/31/22 [facility] [address] [place] [address]- Allergies, Adverse Reactions, Alerts Substance Reaction Severity [...] (oldterm) 08/02/12 Give n 1Result Comment: [04/29/2017] [id number] 2Admin Note: FLUARIX 3Admin Note: 3 RDINJ 4Admin Note: #2 Medications acetaminophen 500 mg oral tablet 1 tablet, By Mouth, 4 times a day, PRN NEEDED FOR PAIN, MAX 4, PER DAY (VIAL., # 50 tablet, 0 Refills, [facility], 175, cm, 01/06/22 10:34:00 EDT, Height, 78.3, kg, 12/26/21 19:05:00 EDT, Dry Weight Start Date: 01/28/22 Status: Ordered amLODIPine 5 mg oral tablet 5 mg, 1, tablet, By Mouth, Daily, # 30 tablet, Refills 5, Tot. Refills 5, Maintenance, 10/21/21 10:15:00 EDT, Route to Pharmacy Electronically, [facility], Partial fill upon patient request if the prescription is for a schedule II opioid drug.... Start Date: 10/21/21 Status: Ordered Co Q-10 100 mg oral capsule 1 capsule, By Mouth, 4 times a day, # 120 capsule, 6 Refills, [facility], 174, cm, 02/27/2115:17:00 EDT, Height, 81, [...] 5 Refills, [facility], 30, USE 1 SPRAY INTO EACH NOSTRIL TWICE A DAY, 174, cm, 07/14/21 8:16:00 EST, Height, 81, kg, 02/27/21 14:06:00 EDT, Dry Weight Start Date: 08/04/21 Status: Ordered folic acid 1 mg oral tablet 1 mg, 1, tablet, By Mouth, Daily, # 90 tablet, Refills 4, Tot. Refills 4, Maintenance, 10/27/21 10:40:00 EDT, Route to Pharmacy Electronically, [facility], Partial fill upon patient request if the prescription is for a schedule II opioid drug.... Start Date: 10/27/21 Stop Date: 01/20/23 Status: Ordered furosemide 20 mg oral tablet 1, tablet, By Mouth, Daily, # 30 tablet, Refills 0, Route to Pharmacy Electronically, [facility], 175, cm, 01/06/22 10:34:00 EDT, Height, 78.3, kg, 12/26/21 19:05:00 EDT, Dry Weight Start Date: 01/21/22 Status: Ordered hydrOXYzine hydrochloride 25 mg oral tablet 1 TO 2 TABLETS, By Mouth, 3 times a day, PRN NEEDED FOR ANXIETY (VIAL), # 60 tablet, 0 Refills, [facility], 175, cm, 01/06/22 10:34:00 EDT, Height, 78.3, kg, 12/26/21 19:05:00 EDT, Dry Weight Start Date: 01/28/22 Status: Ordered lactulose 10 gm/15 ml oral syrup See Instructions, TAKE 30ML BY MOUTH THREE TIMES DAILY NEEDED TO ACHEIVE 3-4 BOWL MOVEMENTS PER DAY, # 3,000 mL, 10 Refills, [facility], 30, TAKE 30ML BY MOUTH THREE TIMES DAILY NEEDED TO ACHEIVE 3-4 BOWL MOVEMENTS PER DAY, 174, cm, 02/12... Start Date: 07/02/21 Status: Ordered lidocaine 0.5% topical gel 1 application, Topically, 3 times a day, # 120 Gm, 0 Refills, Acute 12/30/22 17:23:00 EDT, 12/30/2216:23:00 EDT, Gel, [facility] [...] Refills, Maintenance, 01/28/22 10:17:00 EDT, ER Tablet, [facility], Partial [...] Electronically, [facility], 175,cm, 01/06/22 10:34:00 EDT, Height, 78.3, kg, ... Start Date: 01/30/22 Status: Ordered traZODone 50 mg oral tablet See Instructions, TAKE 2-3 TABLETS BY MOUTH AT BEDTIME (ONE DOSE IN VIAL), # 90 tablet, Refills 5, Tot. Refills 5, Maintenance, 12/26/21 9:21:00 EDT, Instructions Replace Required Details, Route to Pharmacy Electronically, [facility], 170, cm,... Start Date: 12/26/21 Status: Ordered Vitamin B1 100 mg oral tablet 1, tablet, By Mouth, Daily, # 90 tablet, Refills 0, Route to Pharmacy Electronically, [facility], 170, cm, 11/12/21 10:02:00 EDT, Height, 78, kg, 11/04/21 12:03:00 EDT, Dry Weight Start Date: 12/24/21 Status: Ordered Xifaxan 550 mg oral tablet 1 tablet, By Mouth, 2 times a day, # 60 tablet, 2 Refills, [facility], 175, cm, 01/06/22 10:34:00 EDT, Height, [...]
--- OUTSIDE RECORDS SUMMARY | 2023-12-15 20:52 | XMS_ITS | Continuity of Care Document ---
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 Date(s): 05/15/22 - 06/14/22 [facility] [address] [place] [address]- Allergies, Adverse Reactions, Alerts Substance Reaction Severity [...] (oldterm) 08/02/12 Give n 1Result Comment: [facility]: [id number] 2Result Comment: [04/29/2017] [id number] 3Admin Note: FLUARIX 4Admin Note: 3 RDINJ 5Admin Note: #2 Medications acetaminophen 500 mg oral tablet 1 tablet, By Mouth, 4 times a day, PRN NEEDED FOR PAIN, MAX 4, PER DAY (VIAL., # 50 tablet, 11 Refills, Maintenance, 03/13/22 8:37:00 EDT, [facility], 175, cm, 01/06/22 10:34:00 EDT, Height, 78.3, kg, 12/26/21 19:05:00 EDT, Dry Weight Start Date: 03/13/22 Status: Ordered amLODIPine 5 mg oral tablet See Instructions, TAKE 1 TABLET BY MOUTH ONCE A DAY^1R1, # 30 tablet, 5 Refills, Maintenance, 05/13/22 16:24:00 EST, [facility], 175, cm, 04/09/22 15:34:00 EDT, Height, 78.3, kg, 12/26/21 19:05:00 EDT, Dry Weight Start Date: 05/13/22 Status: Ordered Co Q-10 100 mg oral capsule 1 capsule, By Mouth, 4 times a day, # 120 capsule, 5 Refills, Maintenance, 04/09/22 15:55:00 EDT, [facility], 175, cm, 04/09/22 15:34:00 EDT, Height, [...] Gm, 5 Refills, Maintenance, 02/18/22 10:02:00 EDT, [facility], 30, USE 1 SPRAY(S) INTO EACH NOSTRIL TWICE A DAY, 175, cm, 01/06/22 10:34:00 EDT, Height, 78.3, kg, 12/26/21 19... Start Date: 02/18/22 Status: Ordered folic acid 1 mg oral tablet 1 mg, 1, tablet, By Mouth, Daily, # 90 tablet, Refills 4, Tot. Refills 4, Maintenance, 10/27/21 10:40:00 EDT, Route to Pharmacy Electronically, [facility], Partial fill upon patient request if the prescription is for a schedule II opioid drug.... Start Date: 10/27/21 Stop Date: 01/20/23 Status: Ordered furosemide 20 mg oral tablet 1, tablet, By Mouth, Daily, note dose change, # 30 tablet, Refills 2, Tot. Refills 2, Maintenance, 04/09/22 15:53:00 EDT, [facility], [facility], 175, cm, 04/09/22 15:34:00 EDT, Height, [...] 60 tablet, 11 Refills,Maintenance, 03/13/22 8:38:00 EDT, [facility], 175, cm, 01/06/22 10:34:00 EDT, Height, 78.3, kg, 12/26/21 19:05:00 EDT, Dry Weight Start Date: 03/13/22 Status: Ordered lactulose 10 gm/15 ml oral syrup See Instructions, TAKE 30ML BY MOUTH THREE TIMES DAILY NEEDED TO ACHEIVE 3-4 BOWL MOVEMENTS PER DAY, # 3,000 mL, 10 Refills, [facility], 30, TAKE 30ML BY MOUTH THREE TIMES DAILY NEEDED TO ACHEIVE 3-4 BOWL MOVEMENTS PER DAY, 174, cm, 02/12... Start Date: 07/02/21 Status: Ordered lidocaine 0.5% topical gel 1 application, Topically, 3 times a day, # 120 Gm, 0 Refills, Acute 12/30/22 17:23:00 EDT, 12/30/2216:23:00 EDT, Gel, [facility], Partial fill upon patient request if the prescription is fora schedule II opioid drug., 1 application Topically... Start Date: 12/30/21 Stop Date: 12/30/22 Status: Ordered Lidoderm 5% film 1 patch, Topically, Daily, remove patches after 12 hours NSAIDS contraindicated High dose tylenol contraindicated, # 30 patch, 5 Refills, Maintenance, 12/26/21 9:33:00 EDT, [facility], Partial fill upon patient request if the prescription i... Start Date: 12/26/21 Status: Ordered magnesium oxide 400 mg oral tablet 1 tablet, By Mouth, 2 times a day, # 60 tablet, 11 Refills, Maintenance, 03/13/22 8:37:00 EDT, [facility], 175, cm, 01/06/22 10:34:00 EDT, Height, 78.3, kg, 12/26/21 19:05:00 EDT, Dry Weight Start Date: 03/13/22 Status: Ordered Melatonin 3 mg oral tablet 1 tablet, By Mouth, Daily at bedtime, PRN NEEDED FOR INSOMNIA (PACKAGE IN TRAY)^1R4, # 60 tablet, 5 Refills, Maintenance, 06/12/22 18:11:00 EST, [facility], 60, TAKE 1 TABLET BY [...] 04/09/22 16:00:00 EDT, Route to Pharmacy Electronically, [facility], Partial fill upon patient requestif the prescription is for a schedule II opioid remedios... Start Date: 04/09/22 Stop Date: 10/06/22 Status: Ordered Potassium Chloride (Eqv-K-Tab) 20 mEq oral tablet, extended release 2 tablet, By Mouth, Daily, # 180 tablet, 1 Refills, Maintenance, 05/13/22 9:48:00 EST, [facility], 175, cm, 04/09/22 15:34:00 EDT, Height, 78.3, kg, 12/26/21 19:05:00 EDT, Dry Weight Start Date: 05/13/22 Stop Date: 11/09/22 Status: Ordered pyridoxine 50 mg oral tablet 50 mg, 1, tablet, By Mouth, Daily, for 90 days, # 90 tablet, Refills 4, Tot. Refills 4, Acute 01/15/23 11:42:00 EDT, 10/22/21 11:42:00 EDT, Route to Pharmacy Electronically, [facility], Partial fill upon patient request if [...] 0 Refills, Maintenance, 03/12/22 17:21:00 EDT, Tablet, [id number], Partial fill upon patient request if the prescription is for a schedule II opioid drug., 175, cm,... Start Date: 03/12/22 Status: Ordered Tab-A-Jesse oral tablet 1 tablet, By Mouth, Daily, # 90 tablet, 9 Refills, [facility], 28, TAKE 1 TABLET BY MOUTH ONCE A DAY, 174, cm, 07/14/21 8:16:00 EST, Height, 81, kg, 02/27/21 14:06:00 EDT, Dry Weight Start Date: 07/22/21 Status: Ordered traZODone 50 mg oral tablet 2 TO 3 TABLETS, By Mouth, Daily at bedtime, #28 VIAL)^2R4., # 90 tablet, Refills 5, Maintenance, 06/12/22 18:11:00 EST, Route to Pharmacy Electronically, [facility], 179, cm, 06/08/22 7:37:00EST, Height, 84, kg, 06/01/22 12:27:00 EST, Dry Weight Start Date: 06/12/22 Status: Ordered Vitamin B1 100 mg oral tablet 1, tablet, By Mouth, Daily, # 90 tablet, Refills 3, Maintenance, 03/13/22 8:37:00 EDT, Route to Pharmacy Electronically, [facility], 175, cm, 01/06/22 10:34:00 EDT, Height, 78.3, kg, 12/26/2218:05:00 EDT, Dry Weight Start Date: 03/13/22 Status: Ordered Xifaxan 550 mg oral tablet 1 tablet, By Mouth, 2 times a day, ^1R1,1R4., # 60 tablet, 1 Refills, Maintenance, 06/12/22 18:10:00 EST, [facility], 179, cm, 06/08/22 7:37:00 EST, Height, [...] Team Personnel Name: Alexandra Colmenares RN Position: [facility] ED RN W/OE and Tasks Member Role: Primary Care Nurse Name: Garima Manzano RN Position: [facility] RN Member Role: Primary Care Nurse Name: Malgorzata Marinelli RN Position: [facility] RN Member Role: Primary Care Nurse Name: Joyce Roach RN Position: [facility] RN Member Role: Primary Care Nurse Name: Mary Suazo RN Position: [facility] RN Member Role: Primary Care Nurse Name: Danyel Davis RN Position: [facility] RN Member Role: Primary Care Nurse Name: Yenny Bernstein Position: [facility] RN Member Role: Primary Care Nurse Name: Andres Pressley RN Position: [facility] RN Member Role: Primary Care Nurse Name: Jany Baig DO Position: [facility] Primary Care Physician Member Role: PCP Address: Address: [address] [place] [address] Adult [facility] Pediatric [facility] [place], [place] [address] Name: Neida Ballard RN Position: [facility] RN Member Role: Primary Care Nurse Name: Kaye Payne RN Position: [facility] RN Member Role: Primary Care Nurse Name: Garima Hutchinson Position: [facility] RN Member Role: Primary Care Nurse Name: Malgorzata Austin Position: [facility] RN Member Role: Primary Care Nurse Name: Torrie Hernandez RN Position: [facility] OB RN Member Role: Primary Care Nurse Name: Gretchen Knutson RN Position: [facility] RN Member Role: Primary Care Nurse Name: Aislinn Mckee RN Position: S RN Member Role: Primary Care Nurse Name: Ashley Mcelroy Position: [facility] RN Member Role: Primary Care Nurse Name: Cody Garcia Position: [facility] Associate Professional Member Role: Lifetime Consulting Provider Address: Address: [address] [place] [address] Name: Ge Covarrubias RN Position: [facility] RN Member Role: Primary Care Nurse Name: Orin Elmore RN Position: [facility] ED RN W/OE and Tasks Member Role: Primary Care Nurse Name: Allegra Liu RN Position: [facility] PCO RN Member Role: Primary Care Nurse Name: Shayan Pandya MD Position: [facility] Renal MD Member Role: Lifetime Consulting Physician Address: Address: [address] [place] [address] [address] [facility] [place] [address]- Name: Darlene Rodrigez RN Position: [facility] RN Member Role: Primary Care Nurse Name: Kwan Mills RN Position: [facility] RN Member Role: Primary Care Nurse Name: Dolores Can RN Position: [facility] RN Member Role: Primary Care Nurse Name: Kim Rendon RN Position: [facility] RN Member Role: Primary Care Nurse Name: Monica Rowell RN Position: [facility] RN Member Role: Primary Care Nurse Care Team Related Persons Name: MARLEN CABEZAS Address: home [address] [place] [id number] Name: MARLEN CABEZAS Address: home [address] [place] [address] Name: NICK CABEZAS Name: CAWUGEMA Address: home [address] [place] [address]
--- OUTSIDE RECORDS SUMMARY | 2023-12-15 20:52 | XMS_ITS | Continuity of Care Document ---
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 Role Phone Jany Baig DO Primary Care Physician Encounter [facility] Date(s): 12/02/22 - 01/01/23 [facility] [address] [place], [place] [address] Allergies, Adverse Reactions, Alerts Substance [...] n 1Result Comment: [facility]: [id number] 2Result Comment: [04/29/2017] [id number] 3Admin Note: FLUARIX 4Admin Note: 3 RDINJ 5Admin Note: #2 Medications acamprosate 333 mg oral delayed release tablet 1 tablet = 333 mg, By Mouth, 3 times a day, # 42 tablet, 4 Refills, Maintenance, 11/05/22 11:31:00 EDT, EC Tablet, [facility], Partial fill upon patient request if the prescription is for a schedule II opioid drug., 175, cm, 11/05/22 10:21:00... Start Date: 11/05/22 Stop Date: 01/14/23 Status: Ordered amLODIPine 5 mg oral tablet 1 tablet, By Mouth, Daily, ^1R1., # 30 tablet, 5 Refills, Maintenance, 12/22/22 7:20:00 EDT, [facility], 175, cm, 12/03/22 11:50:00 EDT, Height, 88.9, kg, 10/21/22 20:41:00 EDT, Dry Weight Start Date: 12/22/22 Status: Ordered baclofen 10 mg oral tablet See Instructions, TAKE ONE TABLET BY MOUTH THREE TIMES A DAY ^1R1,1R2,1R4, # 90 tablet, Refills 0, Maintenance, 12/22/22 16:58:00 EDT, Instructions Replace Required Details, Route to Pharmacy Electronically, [facility], 175, cm, 12/03/22 11:50... Start Date: 12/22/22 Status: Ordered calcium (as carbonate)-vitamin D 500 [...] Gm, 0 Refills, Maintenance, 12/22/22 16:58:00 EDT, [facility], 13, APPLY TOPICALLY FOUR TIMES A [...] Gm, 11 Refills, Maintenance, 08/07/22 12:12:00 EST, [facility] #[id number], 30, USE 1 SPRAY(S) INTO EACH NOSTRIL TWICE A DAY, 176, cm,08/07/22 11:37:00 EST, Height, 79.8, kg, 07/31/22 2... Start Date: 08/07/22 Status: Ordered folic acid 1 mg oral tablet 1, tablet, By Mouth, Daily, R1., # 30 tablet, Refills 5, Tot. Refills 5, Maintenance, 10/06/22 4:59:00 EDT, [facility] Pharm[facility], [facility], 176, cm, 09/07/22 8:56:00 EDT, Height, [...] 09/03/22 14:50:00 EDT, Route to Pharmacy Electronically, [facility], 169, cm, 09/03/22 14:21:00 EDT, Height, 69, kg, 08/16/22 1:04:00 EST, Dry Weight Start Date: 09/03/22 Status: Ordered gabapentin 300 mg oral capsule 300 mg, 1, capsule, By Mouth, Daily at bedtime, note dose/frequency change, # 90 capsule, Refills 4, Tot. Refills 4, Maintenance, 11/05/22 11:05:00 EDT, Route to Pharmacy Electronically, [facility], 175, cm, 11/05/22 10:21:00 EDT, Height, 88.9... Start Date: 11/05/22 Stop Date: 01/29/24 Status: Ordered hydrOXYzine hydrochloride 10 mg oral tablet 2 tablet, By Mouth, 2 times a day, PRN NEEDED FOR ANXIETY (VIAL), # 30 tablet, 3 Refills, Maintenance, 12/22/22 16:57:00 EDT, [facility], 175, cm, 12/03/22 11:50:00 EDT, Height, 88.9, kg, 10/21/22 20:41:00 EDT, Dry Weight Start Date: 12/22/22 Status: Ordered lactulose 10 gm/15 ml oral syrup 15 mL, By Mouth, 2 times a day, # 120 mL, 6 Refills, Maintenance, 09/22/22 12:15:00 EDT, [facility], 4, TAKE 15ML BY MOUTH TWO TIMES A DAY, 176, cm, 09/07/22 8:56:00 EDT, Height, 82.1, kg, 09/07/22 8:59:00 EDT, Dry Weight Start Date: 09/22/22 Status: Ordered Lidoderm 5% film 1 patch, Topically, Daily, remove patches after 12 hours NSAIDS contraindicated High dose tylenol contraindicated remove patches after 12 hours Nueropathy, # 30 patch, 5 Refills, Maintenance, 11/05/22 11:04:00 EDT, [facility], Partial klaudia... Start Date: 11/05/22 Status: Ordered Melatonin 3 mg oral tablet 1 tablet, By Mouth, Daily at bedtime, PRN NEEDED FOR INSOMNIA (PACKAGE IN TRAY)^1R4, # 60 tablet, 5 Refills, Maintenance, 06/12/22 18:11:00 EST, [facility], 60, TAKE 1 TABLET BY MOUTH [...] 09/03/22 14:53:00 EDT, Route to Pharmacy Electronically, [facility], Partial fill upon patient request if [...] 11/05/22 11:31:00 EDT, Route to Pharmacy Electronically, [facility], Partial fill upon patient request if the prescription is for a schedule II opioid drug... Start Date: 11/05/22 Status: Ordered Tab-A-Jesse oral tablet 1 tablet, By Mouth, Daily, # 90 tablet, 1 Refills, 12/01/22 12:59:00 EDT, [facility], 28, 1tablet By Mouth Daily, 175, cm, 11/13/22 10:42:00 EDT, Height, 88.9, kg, 10/21/22 20:41:00 EDT, DryWeight Start Date: 12/01/22 Status: Ordered traZODone 50 mg oral tablet 2 tablets, By Mouth, Daily at bedtime, # 60 each, Refills 5, Tot. Refills 5, Maintenance, 09/03/22 17:13:00 EDT, Route to Pharmacy Electronically, [facility], 169, cm, 09/03/22 14:21:00 EDT, Height, [...] 03/13/22 8:37:00 EDT, Route to Pharmacy Electronically, [facility], 175, cm, 01/06/22 10:34:00 EDT, Height, 78.3, kg, 12/26/2218:05:00 EDT, Dry Weight Start Date: 03/13/22 Status: Ordered Vitamin B6 50 mg oral tablet 1, tablet, By Mouth, Daily, R1., # 90 tablet, Refills 4, Maintenance, 11/16/22 13:39:00 EDT, Route to Pharmacy Electronically, [facility], 175, cm, 11/13/22 10:42:00 EDT, Height, [...] tablet, 3 Refills, Maintenance, 10/01/22 15:19:00 EDT, [facility], 176, cm, 09/07/22 8:56:00 EDT, Height, [...] Care Nurse Name: Joyce Roach RN Position: [facility] RN Member Role: Primary Care Nurse Name: Mary Suazo RN Position: [facility] RN Member Role: Primary Care Nurse Name: Andres Pressley RN Position: [facility] RN Member Role: Primary Care Nurse Name: Jany Baig DO Position: [facility] Physician - Primary Care Member Role: PCP Address: Address: [address] [place] [address] Adult & [place] [address]- Name: Neida Ballard RN Position: [facility] RN Member Role: Primary Care Nurse Name: Kaye Payne RN Position: [facility] RN Member Role: Primary Care Nurse Name: Garima Hutchinson Position: [facility] RN Member Role: Primary Care Nurse Name: Malgorzata Austin Position: [facility] RN Member Role: Primary Care Nurse Name: Ibeth Adams RN Position: [facility] RN Member Role: Primary Care Nurse Name: Torrie Hernandez RN Position: [facility] OB RN Member Role: Primary Care Nurse Name: Gretchen Knutson RN Position: [facility] SN RN Member Role: Primary Care Nurse Name: Aislinn Mckee RN Position: [facility] RN Member Role: Primary Care Nurse Name: Ashley Mcelroy Position: S RN Member Role: Primary Care Nurse Name: Cody Garcia Position: [facility] Associate Professional Member Role: Lifetime Consulting Provider Address: Address: [address] [place] [id number]- Name: Ge Covarrubias RN Position: [facility] RN Member Role: Primary Care Nurse Name: Orin Elmore RN Position: [facility] ED RN W/OE and Tasks Member Role: Primary Care Nurse Name: Allegra Liu RN Position: [facility] AMB Nurse Member Role: Primary Care Nurse Name: Shayan Pandya MD Position: [facility] Renal MD Member Role: Lifetime Consulting Physician Address: Address: [address] [place] [address] [address] [facility] [place] [address]- Name: Darlene Rodrigez RN Position: [facility] RN Member Role: Primary Care Nurse Name: Kwan Mills RN Position: [facility] RN Member Role: Primary Care Nurse Name: Dolores Can RN Position: [facility] RN Member Role: Primary Care Nurse Name: Monica Rowell RN Position: [facility] RN Member Role: Primary Care Nurse Name: Jimi Fitzpatrick RN Position: [facility] RN Member Role: Primary Care Nurse Care Team Related Persons Name: MARLEN CABEZAS Address: home [address] [place] [id number] Name: MARLEN CABEZAS Address: [address] [place] [address] Name: NICK CABEZAS Name: GEMA CABEZAS Address: home [address] [place] [address]
--- OUTSIDE RECORDS SUMMARY | 2023-12-15 20:52 | XMS_ITS | Continuity of Care Document ---
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 Role Phone Jany Baig DO Primary Care Physician Encounter [facility] Date(s): 12/30/21 - 01/29/22 [facility] [address] [place] [address]- Allergies, Adverse Reactions, Alerts Substance Reaction Severity [...] Give n influenza virus vaccine, inactivated 2 9/17/13 Gi cleopatra hepatitis B adult vaccine 03/01/20 [...] (oldterm) 08/02/12 Give n 1Result Comment: [04/29/2017] [id number] 2Admin Note: FLUARIX 3Admin Note: 3 RDINJ 4Admin Note: #2 Medications acetaminophen 500 mg oral tablet 1 tablet, By Mouth, 4 times a day, PRN NEEDED FOR PAIN, MAX 4, PER DAY (VIAL., # 50 tablet, 0 Refills, [facility], 175, cm, 01/06/22 10:34:00 EDT, Height, 78.3, kg, 12/26/21 19:05:00 EDT, Dry Weight Start Date: 01/28/22 Status: Ordered amLODIPine 5 mg oral tablet 5 mg, 1, tablet, By Mouth, Daily, # 30 tablet, Refills 5, Tot. Refills 5, Maintenance, 10/21/21 10:15:00 EDT, Route to Pharmacy Electronically, [facility], Partial fill upon patient request if the prescription is for a schedule II opioid drug.... Start Date: 10/21/21 Status: Ordered Co Q-10 100 mg oral capsule 1 capsule, By Mouth, 4 times a day, # 120 capsule, 6 Refills, [facility], 174, cm, 02/27/2115:17:00 EDT, Height, 81, [...] A DAY, # 16 Gm, 5 Refills, [facility], 30, USE 1 SPRAY INTO EACH NOSTRIL TWICE A DAY, 174, cm, 07/14/21 8:16:00 EST, Height, 81, kg, 02/27/21 14:06:00 EDT, Dry Weight Start Date: 08/04/21 Status: Ordered folic acid 1 mg oral tablet 1 mg, 1, tablet, By Mouth, Daily, # 90 tablet, Refills 4, Tot. Refills 4, Maintenance, 10/27/21 10:40:00 EDT, [facility], Partial fill upon patient request if the prescription is for a schedule II opioid drug.... Start Date: 10/27/21 Stop Date: 01/20/23 Status: Ordered furosemide 20 mg oral tablet 1, tablet, By Mouth, Daily, # 30 tablet, Refills 0, [facility], 175, cm, 01/06/22 10:34:00 EDT, Height, 78.3, kg, 12/26/21 19:05:00 EDT, Dry Weight Start Date: 01/21/22 Status: Ordered hydrOXYzine hydrochloride 25 mg oral tablet 1 TO 2 TABLETS, By Mouth, 3 times a day, PRN NEEDED FOR ANXIETY (VIAL), # 60 tablet, 0 Refills, [facility], 175, cm, 01/06/22 10:34:00 EDT, Height, 78.3, kg, 12/26/21 19:05:00 EDT, Dry Weight Start Date: 01/28/22 Status: Ordered lactulose 10 gm/15 ml oral syrup See Instructions, TAKE 30ML BY MOUTH THREE TIMES DAILY NEEDED TO ACHEIVE 3-4 BOWL MOVEMENTS PER DAY, # 3,000 mL, 10 Refills, [facility], 30, TAKE 30ML BY MOUTH THREE TIMES DAILY NEEDED TO ACHEIVE 3-4 BOWL MOVEMENTS PER DAY, 174, cm, 02/12... Start Date: 07/02/21 Status: Ordered lidocaine 0.5% topical gel 1 application, Topically, 3 times a day, # 120 Gm, 0 Refills, Acute 12/30/22 17:23:00 EDT, 12/30/2216:23:00 EDT, Gel, [facility], Partial fill upon patient request if the prescription is fora schedule II opioid drug., 1 application Topically... Start Date: 12/30/21 Stop Date: 12/30/22 Status: Ordered Lidoderm 5% film 1 patch, Topically, Daily, remove patches after 12 hours NSAIDS contraindicated High dose tylenol contraindicated, # 30 patch, 5 Refills, Maintenance, 12/26/21 9:33:00 EDT, [facility], Partial fill upon patient request if the prescription i... Start Date: 12/26/21 Status: Ordered magnesium oxide 400 mg oral tablet 1 tablet, By Mouth, 2 times a day, # 60 tablet, 0 Refills, [facility], 175, cm, 01/06/22 10:34:00 EDT, Height, 78.3, kg, 12/26/21 19:05:00 EDT, Dry Weight Start Date: 01/21/22 Status: Ordered Melatonin 3 mg oral tablet 1 tablet, By Mouth, Daily at bedtime, PRN NEEDED FOR INSOMNIA (PACKAGE IN TRAY), # 60 tablet, 5 Refills, Maintenance, 06/02/21 16:17:00 EST, [facility], 28, 1 tablet By Mouth [...] Refills, Maintenance, 01/28/22 10:17:00 EDT, ER Tablet, [facility], Partial fill upon patient request [...] [facility], Partial fill upon patient request if [...] Mouth, Daily, # 90 tablet, 9 Refills, [facility], 28, TAKE 1 TABLET BY [...] [facility], 170, cm,... Start Date: 12/26/21 Status: Ordered Vitamin B1 100 mg oral tablet 1, tablet, By Mouth, Daily, # 90 tablet, Refills 0, Route to Pharmacy Electronically, [facility], 170, cm, 11/12/21 10:02:00 EDT, Height, 78, kg, 11/04/21 12:03:00 EDT, Dry Weight Start Date: 12/24/21 Status: Ordered Xifaxan 550 mg oral tablet 1 tablet, By Mouth, 2 times a day, # 60 tablet, 2 Refills, [facility], 175, cm, 01/06/22 10:34:00 EDT, [...]
--- OUTSIDE RECORDS SUMMARY | 2023-12-15 20:52 | XMS_ITS | Continuity of Care Document ---
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, 174, cm, 02/27/21 15:17:00 EDT, Height, 81, kg, 02/27/21 14:06:00 EDT, Dry Weight Start Date: 05/12/21 Status: Ordered chantix 1mg tablet 1 tablet, By Mouth, 2 times a day, # 56 tablet, 0 Refills, Acute, 11/22/20 16:13:00 EDT, [facility], 178, cm, 11/12/20 15:32:00 EDT, Height, 84.9, kg, 08/31/20 1:07:00 EDT, Dry Weight Start Date: 11/22/20 Status: Ordered Co Q-10 100 mg oral capsule See Instructions, TAKE 1 CAPSULE BY MOUTH FOUR TIMES DAILY, # 120 capsule, 7 Refills, Maintenance, [facility], 178, cm, 10/22/20 13:17:00 EDT, Height, 84.9, kg, 08/31/20 1:07:00 EDT, Dry Weight Start Date: 11/01/20 Status: Ordered Co Q-10 100 mg oral capsule 1 capsule, By Mouth, 4 times a day, # 120 capsule, 11 Refills, Maintenance, 11/21/19 10:36:00 EDT, [facility]/pharmacy #[id number], 175, cm, 08/24/19 14:14:00 EDT, Height, 81.2, kg, 02/04/19 1:40:00 EDT, Dry Weight Start Date: 11/21/19 Stop Date: 11/15/20 Status: Ordered fluticasone 50 mcg/inh nasal spray See Instructions, USE 1 SPRAY INTO EACH NOSTRIL TWICE A DAY, # 16 Gm, 5 Refills, Maintenance, [facility], 30, USE 1 SPRAY INTO EACH NOSTRIL TWICE A DAY, 178, cm, 01/07/21 17:59:00 EDT, Height, 81.4, kg, 12/03/20 13:52:00 EDT, Dry Weight Start Date: 01/17/21 Status: Ordered gabapentin 600 mg oral tablet 1 tablet, By Mouth, 4 times a day, # 120 tablet, 0 Refills, [facility], 174, cm, 02/27/21 15:17:00 EDT, Height, 81, kg, 02/27/21 14:06:00 EDT, Dry Weight Start Date: 05/12/21 Status: Ordered hydrOXYzine hydrochloride 25 mg oral tablet 1 TO 2 TABLETS, By Mouth, 3 times a day, PRN NEEDED FOR ANXIETY (VIAL), # 60 tablet, 0 Refills, [facility], 174, cm, 02/27/21 15:17:00 EDT, Height, 81, kg, 02/27/21 14:06:00 EDT, Dry Weight Start Date: 05/12/21 Status: Ordered Melatonin 3 mg oral tablet 1 tablet, By Mouth, Daily at bedtime, PRN NEEDED FOR INSOMNIA (PACKAGE IN TRAY), # 60 tablet, 0 Refills, [facility], 28, TAKE 1 TABLET BY MOUTH AT BEDTIME NEEDED FOR INSOMNIA (PACKAGE IN TRAY), 174, cm, 02/27/21 15:17:00 EDT, Height, 81,... Start Date: 05/12/21 Status: Ordered OXcarbazepine 150 mg oral tablet [...] 10/06/19 15:57:00 EDT, Tablet, [facility], 175, cm, 08/24/19 14:14:00 EDT,Height, 81.2, kg, 02/04/19 1:40:00 EDT, Dry Weight Start Date: 10/06/19 Status: Ordered sertraline 50 mg oral tablet 1 tablet, By Mouth, Daily, TAKE ALONG WITH A 100MG TABLET to equal 150mg daily, # 90 tablet, 1 Refills, Maintenance, 10/06/19 15:57:00 EDT, [facility], 175, cm, 08/24/19 14:14:00 EDT, Height,81.2, kg, 02/04/19 1:40:00 EDT, Dry Weight Start Date: 10/06/19 Status: Ordered sildenafil 50 mg oral tablet 1 tablet = 50 mg, By Mouth, Daily, PRN erectile dysfunction, 1 hour before sexual activity, # 6 tablet, 5 Refills, Maintenance, 03/11/20 14:37:00 EDT, Tablet, [facility]/pharmacy #[id number], 175, cm, 08/24/19 14:14:00 EDT, Height, 81.2, kg, 02/04/19 1:40:00 EDT,... Start Date: 03/11/20 Status: Ordered Tab-A-Jesse oral tablet See Instructions, TAKE 1 TABLET BY MOUTH ONCE A DAY, # 30 tablet, 10 Refills, Maintenance, [facility], 28, TAKE 1 TABLET BY MOUTH ONCE A DAY, 175, cm, 04/02/20 0:35:00 EDT, Height, 100, kg, 04/02/20 0:35:00 EDT, Dry Weight Start Date: 07/18/20 Status: Ordered tranexamic acid 650 mg oral tablet 1 tablet = 650 mg, By Mouth, Daily, # 21 tablet, 0 Refills, Maintenance, 10/22/20 17:52:00 EDT, Tablet, [facility]/pharm[facility] #[id number], Partial fill upon patient request if the prescription is for a schedule II opioid drug., 178, cm, 10/22/20 13:17:00 EDT, Height... Start Date: 10/22/20 Status: Ordered traZODone 50 mg oral tablet See Instructions, TAKE 1 TO 2 TABLETS BY MOUTH AT BEDTIME (ONE DOSE IN VIAL), # 60 tablet, Refills 5, Instructions Replace Required Details, Route to Pharmacy Electronically, [facility], 174,cm, 02/11/21 12:09:00 EDT, Height, 86.6, kg, ... Start Date: 02/15/21 Status: Ordered Vitamin B1 100 mg oral tablet 1, tablet, By Mouth, Daily, # 90 tablet, Refills 2, Tot. Refills 0, Acute, 09/05/20 17:32:00 EDT, Route to Pharmacy Electronically, [facility], 178, cm, 08/31/20 11:25:00 EDT, Height, 84.9, kg, 08/31/20 1:07:00 EDT, Dry Weight Start Date: 09/05/20 Status: Ordered Xifaxan 550 mg oral tablet 1 tablet, By Mouth, 2 times a day, # 60 tablet, 0 Refills, Maintenance, 04/16/20 14:45:00 EST, [facility]/pharm[facility] #[id number], 175, cm, 04/02/20 0:35:00 EDT, [...]
--- OUTSIDE RECORDS SUMMARY | 2023-12-15 20:52 | XMS_ITS | Continuity of Care Document ---
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 Role Phone Jany Baig DO Primary Care Physician ( [phone] Encounter [facility] Date(s): 12/04/22 - 01/03/23 [facility] [address] [place], [place] [address] Allergies, Adverse Reactions, Alerts Substance [...] Give n 1Result Comment: [facility]: [id number] 2Result Comment: [04/29/2017] [id number] 3Admin Note: FLUARIX 4Admin Note: 3 RDINJ 5Admin Note: #2 Medications acamprosate 333 mg oral delayed release tablet 1 tablet = 333 mg, By Mouth, 3 times a day, # 42 tablet, 4 Refills, Maintenance, 11/05/22 11:31:00 EDT, EC Tablet, [facility], Partial fill upon patient request if the prescription is for a schedule II opioid drug., 175, cm, 11/05/22 10:21:00... Start Date: 11/05/22 Stop Date: 01/14/23 Status: Ordered amLODIPine 5 mg oral tablet 1 tablet, By Mouth, Daily, ^1R1., # 30 tablet, 5 Refills, Maintenance, 12/22/22 7:20:00 EDT, [facility], 175, cm, 12/03/22 11:50:00 EDT, Height, 88.9, kg, 10/21/22 20:41:00 EDT, Dry Weight Start Date: 12/22/22 Status: Ordered baclofen 10 mg oral tablet See Instructions, TAKE ONE TABLET BY MOUTH THREE TIMES A DAY ^1R1,1R2,1R4, # 90 tablet, Refills 0, Maintenance, 12/22/22 16:58:00 EDT, Instructions Replace Required Details, Route to Pharmacy Electronically, [facility], 175, cm, 12/03/22 11:50... Start Date: 12/22/22 Status: Ordered calcium (as carbonate)-vitamin D 500 mg-400 intl units oral tablet 1 tablet, By Mouth, Daily, ^1R1., # 28 tablet, 0 Refills, Maintenance, 12/01/22 16:12:00 EDT, [facility], 28, 1 tablet By [...] capsule, 6 Refills, Maintenance, 12/03/22 12:13:00 EDT, [facility], 175, cm, 12/03/22 11:50:00 [...] Gm, 0 Refills, Maintenance, 12/22/22 16:58:00 EDT, [facility], 13, APPLY TOPICALLY FOUR TIMES A [...] [facility] #[id number], 30, USE 1 SPRAY(S) INTO EACH NOSTRIL TWICE A DAY, 176, cm,08/07/22 11:37:00 EST, Height, 79.8, kg, 07/31/22 2... Start Date: 08/07/22 Status: Ordered folic acid 1 mg oral tablet 1, tablet, By Mouth, Daily, R1., # 30 tablet, Refills 5, Tot. Refills 5, Maintenance, 10/06/22 4:59:00 EDT, Route to Pharmacy [facility]ically, [facility], 176, cm, 09/07/22 8:56:00 EDT, Height, [...] 09/03/22 14:50:00 EDT, Route to Pharmacy Electronically, [facility], 169, cm, 09/03/22 14:21:00 EDT, Height, 69, kg, 08/16/22 1:04:00 EST, Dry Weight Start Date: 09/03/22 Status: Ordered gabapentin 300 mg oral capsule 300 mg, 1, capsule, By Mouth, Daily at bedtime, note dose/frequency change, # 90 capsule, Refills 4, Tot. Refills 4, Maintenance, 11/05/22 11:05:00 EDT, Route to Pharmacy [facility]ically, [facility], 175, cm, 11/05/22 10:21:00 EDT, Height, 88.9... Start Date: 11/05/22 Stop Date: 01/29/24 Status: Ordered hydrOXYzine hydrochloride 10 mg oral tablet 2 tablet, By Mouth, 2 times a day, PRN NEEDED FOR ANXIETY (VIAL), # 30 tablet, 3 Refills, Maintenance, 12/22/22 16:57:00 EDT, [facility], 175, cm, 12/03/22 11:50:00 EDT, Height, 88.9, kg, 10/21/22 20:41:00 EDT, Dry Weight Start Date: 12/22/22 Status: Ordered lactulose 10 gm/15 ml oral syrup 15 mL, By Mouth, 2 times a day, # 120 mL, 6 Refills, Maintenance, 09/22/22 12:15:00 EDT, [facility], 4, TAKE 15ML BY MOUTH TWO TIMES A DAY, 176, cm, 09/07/22 8:56:00 EDT, Height, 82.1, kg, 09/07/22 8:59:00 EDT, Dry Weight Start Date: 09/22/22 Status: Ordered Lidoderm 5% film 1 patch, Topically, Daily, remove patches after 12 hours NSAIDS contraindicated High dose tylenol contraindicated remove patches after 12 hours Nueropathy, # 30 patch, 5 Refills, Maintenance, 11/05/22 11:04:00 EDT, [facility], Partial klaudia... Start Date: 11/05/22 Status: Ordered Melatonin 3 mg oral tablet 1 tablet, By Mouth, Daily at bedtime, PRN NEEDED FOR INSOMNIA (PACKAGE IN TRAY)^1R4, # 60 tablet, 5 Refills, Maintenance, 06/12/22 18:11:00 EST, [facility], 60, TAKE 1 TABLET BY MOUTH [...] 09/03/22 14:53:00 EDT, Route to Pharmacy Electronically, [facility], Partial fill upon patient request if [...] 11/05/22 11:31:00 EDT, Route to Pharmacy Electronically, [facility], Partial fill upon patient request if the prescription is for a schedule II opioid drug... Start Date: 11/05/22 Status: Ordered Tab-A-Jesse oral tablet 1 tablet, By Mouth, Daily, # 90 tablet, 1 Refills, 12/01/22 12:59:00 EDT, [facility], 28, 1tablet By Mouth Daily, 175, cm, 11/13/22 10:42:00 EDT, Height, 88.9, kg, 10/21/22 20:41:00 EDT, DryWeight Start Date: 12/01/22 Status: Ordered traZODone 50 mg oral tablet 2 tablets, By Mouth, Daily at bedtime, # 60 each, Refills 5, Tot. Refills 5, Maintenance, 09/03/22 17:13:00 EDT, Route to Pharmacy Electronically, [facility], 169, cm, 09/03/22 14:21:00 EDT, Height, [...] 03/13/22 8:37:00 EDT, Route to Pharmacy Electronically, [facility], 175, cm, 01/06/22 10:34:00 EDT, Height, 78.3, kg, 12/26/2218:05:00 EDT, Dry Weight Start Date: 03/13/22 Status: Ordered Vitamin B6 50 mg oral tablet 1, tablet, By Mouth, Daily, R1., # 90 tablet, Refills 4, Maintenance, 11/16/22 13:39:00 EDT, Route to Pharmacy Electronically, [facility], 175, cm, 11/13/22 10:42:00 EDT, Height, [...] tablet, 3 Refills, Maintenance, 10/01/22 15:19:00 EDT, [facility], 176, cm, 09/07/22 8:56:00 EDT, Height, [...] Team Personnel Name: Alexandra Colmenares RN Position: [facility] ED RN W/OE and Tasks Member Role: Primary Care Nurse Name: Garima Manzano RN Position: [facility] RN Member Role: Primary Care Nurse Name: Malgorzata Marinelli RN Position: [facility] RN Member Role: Primary Care Nurse Name: Joyce Roach RN Position: [facility] RN Member Role: Primary Care Nurse Name: Mary Suazo RN Position: [facility] RN Member Role: Primary Care Nurse Name: Andres Pressley RN Position: [facility] RN Member Role: Primary Care Nurse Name: Jany Baig DO Position: [facility] Physician - Primary Care Member Role: PCP Address: Address: [address] [place] [address] [facility] [place] [address]- Name: Neida Ballard RN Position: [facility] RN Member Role: Primary Care Nurse Name: Kaye Payne RN Position: [facility] RN Member Role: Primary Care Nurse Name: Garima Hutchinson Position: [facility] RN Member Role: Primary Care Nurse Name: Malgorzata Austin Position: [facility] RN Member Role: Primary Care Nurse Name: Ibeth Adams RN Position: [facility] RN Member Role: Primary Care Nurse Name: Torrie Hernandez RN Position: [facility] OB RN Member Role: Primary Care Nurse Name: Gretchen Knutson RN Position: [facility] SN RN Member Role: Primary Care Nurse Name: Aislinn Mckee RN Position: [facility] RN Member Role: Primary Care Nurse Name: Ashley Mcelroy Position: S RN Member Role: Primary Care Nurse Name: Cody Garcia Position: [facility] Associate Professional Member Role: Lifetime Consulting Provider Address: Address: [address] [place] [address]- Name: Ge Covarrubias RN Position: [facility] RN Member Role: Primary Care Nurse Name: Orin Elmore RN Position: [facility] ED RN W/OE and Tasks Member Role: Primary Care Nurse Name: Allegra Liu RN Position: [facility] AMB Nurse Member Role: Primary Care Nurse Name: Shayan Pandya MD Position: [facility] Renal MD Member Role: Lifetime Consulting Physician Address: Address: [address] [place] [address] [address] [facility] [place], [place] [address]- Name: Darlene Rodrigez RN Position: [facility] RN Member Role: Primary Care Nurse Name: Kwan Mills RN Position: [facility] RN Member Role: Primary Care Nurse Name: Dolores Can RN Position: [facility] RN Member Role: Primary Care Nurse Name: Monica Rowell RN Position: [facility] RN Member Role: Primary Care Nurse Name: Jimi Fitzpatrick RN Position: [facility] RN Member Role: Primary Care Nurse Care Team Related Persons Name: MARLEN CABEZAS Address: home [address] [place] [id number] Name: MARLEN CABEZAS Address: home [address] [place] [address] Name: NICK CABEZAS Name: GEMA CABEZAS Address: home [address] [place] [id number]
--- OUTSIDE RECORDS SUMMARY | 2023-12-15 20:53 | XMS_ITS | Continuity of Care Document ---
Author Organization [facility] Address [address] [place] [address]- Care Team Providers Care Three Knife Trimmer Name Role Phone Jany Baig DO Primary Care Physician Encounter [facility] [place] Date(s): 04/02/23 - 05/05/23 [facility] [address] [place], [place] [address] Attending Physician: Bi LEE, [place] Beyer Allergies, [...] acel (oldterm) 08/02/12 Give n 1Result Comment: [facility]: [id number] 2Result Comment: [04/29/2017] [id number] 3Admin Note: FLUARIX 4Admin Note: 3 RDINJ 5Admin Note: #2 Medications acamprosate 333 mg oral delayed release tablet 1 tablet = 333 mg, By Mouth, 3 times a day, # 42 tablet, 4 Refills, Maintenance, 11/05/22 11:31:00 EDT, EC Tablet, [facility], Partial fill upon patient request if [...] Replace Required Details, [facility], [facility], cm... Start Date: 01/14/23 Status: Ordered calcium (as carbonate)-vitamin D 500 mg-400 intl units oral tablet 1 tablet, By Mouth, Daily, ^1R1., # 28 tablet, 0 Refills, Maintenance, 12/01/22 16:12:00 EDT, [facility], 28, 1 tablet By Mouth Daily,Instr:^1R1., [...] capsule, 6 Refills, Maintenance, 12/03/22 12:13:00 EDT, [facility], 175, cm, 12/03/22 11:50:00 EDT, Height, [...] Gm, 12 Refills, Maintenance, 03/24/23 10:52:00 EDT, [facility], 28, APPLY TOPICALLY TO AFFECTED [...] Refills, Maintenance, 08/07/22 12:12:00 EST, [facility]/pharmacy #[id number], 30, USE 1 SPRAY(S) INTO EACH NOSTRIL TWICE A DAY, 176, cm,08/07/22 11:37:00 EST, Height, 79.8, kg, 07/31/22 2... Start Date: 08/07/22 Status: Ordered folic acid 1 mg oral tablet 1, tablet, By Mouth, Daily, ^1R1., # 30 tablet, Refills 5, Maintenance, 03/20/23 16:22:00 EDT, [facility], [facility], cm, 03/20/23 15:31:00 EDT, Height, 77.5, kg, 03/20/23 11:30:00 EDT, Dry Weight Start Date: 03/20/23 Status: Ordered furosemide 20 mg oral tablet 20 mg, 1, tablet, By Mouth, Every other day, # 30 tablet, Refills 3, Tot. Refills 3, Maintenance, 01/28/23 12:31:00 EDT, Route to Pharmacy Electronically, [facility], Partial fill upon patient request if the prescription is for a schedule II o... Start Date: 01/28/23 Status: Ordered gabapentin 300 mg oral capsule 300 mg, 1, capsule, By Mouth, Daily at bedtime, note dose/frequency change, # 90 capsule, Refills 4, Tot. Refills 4, Maintenance, 11/05/22 11:05:00 EDT, [facility], 175, cm, 11/05/22 10:21:00 EDT, Height, 88.9... Start Date: 11/05/22 Stop Date: 01/29/24 Status: Ordered hydrOXYzine hydrochloride 10 mg oral tablet 2 tablet, By Mouth, 2 times a day, PRN NEEDED FOR ANXIETY (VIAL), # 30 tablet, 3 Refills, Maintenance, 04/16/23 16:41:00 EDT, [facility], 175, cm, 03/22/23 6:50:00 EDT, Height, 77.5, kg, 03/20/23 11:30:00 EDT, Dry Weight Start Date: 04/16/23 Status: Ordered lactulose 10 gm/15 ml oral syrup 15 mL, By Mouth, 2 times a day, # 120 mL, 6 Refills, Maintenance, 02/26/23 10:11:00 EDT, [facility], 4, TAKE 15ML BY MOUTH TWO TIMES A DAY, 175, cm, 12/03/22 11:50:00 EDT, Height, 84, kg, 02/12/23 11:30:00 EDT, Dry Weight Start Date: 02/26/23 Status: Ordered magnesium oxide 400 mg oral tablet See Instructions, TAKE 1 TABLET BY MOUTH TWICE A DAY^1R1,1R4, # 60 tablet, 11 Refills, Maintenance,01/28/23 12:31:00 EDT, [facility], 175, cm, 12/03/22 11:50:00 EDT, Height, 88.9, kg, 10/21/22 20:41:00 EDT, Dry Weight Start Date: 01/28/23 Status: Ordered Melatonin 3 mg oral tablet 1 tablet, By Mouth, Daily at bedtime, PRN NEEDED FOR INSOMNIA (PACKAGE IN TRAY)^1R4, # 60 tablet, 5 Refills, Maintenance, 04/16/23 16:41:00 EDT[facility], 60, TAKE 1 TABLET BY [...] 02/26/23 10:11:00 EDT, Route to Pharmacy Electronically, [facility], 175, cm, 12/03/22 11:50:00 EDT, Height, [...] 04/14/23 12:41:00 EDT, Route to Pharmacy Electronically, [facility], 175, cm, 03/22/23 6:50:00 EDT, Height, 77.5, kg, 03/20/23 11:30:00 EDT, Dry Weight Start Date: 04/14/23 Status: Ordered Tab-A-Jesse oral tablet 1 tablet, By Mouth, Daily, # 90 tablet, 1 Refills, 12/01/22 12:59:00 EDT, [facility], 28, 1tablet By Mouth Daily, 175, cm, 11/13/22 10:42:00 EDT, Height, 88.9, kg, 10/21/22 20:41:00 EDT, DryWeight Start Date: 12/01/22 Status: Ordered traZODone 50 mg oral tablet 2, tablet, By Mouth, Daily at bedtime, ^2R4., # 60 tablet, Refills 5, Maintenance, 02/26/23 10:11:00 EDT, Route to Pharmacy Electronically, [facility], 175, cm, 12/03/22 11:50:00 EDT, Height,84, [...] 02/09/23 23:18:00 EDT, Route to Pharmacy Electronically, [facility], 175, cm, 12/03/22 11:50:00 EDT, Height, 88.9, kg, 10/21/22 20:41:00 EDT, Dry Weight Start Date: 02/09/23 Status: Ordered Vitamin B6 50 mg oral tablet 1, tablet, By Mouth, Daily, R1., # 90 tablet, Refills 4, Maintenance, 11/16/22 13:39:00 EDT, Route to Pharmacy Electronically, [facility], 175, cm, 11/13/22 10:42:00 EDT, Height, [...] tablet, 3 Refills, Maintenance, 02/26/23 10:11:00 EDT, [facility], 175, cm, 12/03/22 11:50:00 EDT, Height, [...] Name: Alexandra Colmenares RN Position: [facility] ED RN W/OE and Tasks Member Role: Primary Care Nurse Name: Garima Manzano RN Position: S RN Member Role: Primary Care Nurse Name: Malgorzata Marinelli RN Position: [facility] RN Member Role: Primary Care Nurse Name: Joyce Roach RN Position: [facility] ED RN W/OE and Tasks Member Role: Primary Care Nurse Name: Mary Suazo RN Position: [facility] RN Member Role: Primary Care Nurse Name: Andres Pressley RN Position: [facility] ED RN W/OE and Tasks Member Role: Primary Care Nurse Name: Jany Baig DO Position: [facility] Physician - Primary Care Member Role: PCP Address: Address: [address] [place] [address] Adult [facility] [place] [address]- Name: Kaye Payne RN Position: [facility] RN Member Role: Primary Care Nurse Name: Garima Hutchinson Position: [facility] RN Member Role: Primary Care Nurse Name: Malgorzata Austin Position: [facility] RN Member Role: Primary Care Nurse Name: Ibeth Adams RN Position: [facility] RN Member Role: Primary Care Nurse Name: Torrie Hernandez RN Position: [facility] OB RN Member Role: Primary Care Nurse Name: Gretchen Knutson RN Position: [facility] SN RN Member Role: Primary Care Nurse Name: Aislinn Mckee RN Position: [facility] RN Member Role: Primary Care Nurse Name: Ashley Mcelroy Position: [facility] RN Member Role: Primary Care Nurse Name: Ashok Kevin RN Position: [facility] RN Member Role: Primary Care Nurse Name: Cody Garcia Position: [facility] Associate Professional Member Role: Lifetime Consulting Provider Address: Address: [address] [place] [id number]- Name: Paige Nascimento RN Position: [facility] RN Member Role: Primary Care Nurse Name: Ge Covarrubias RN Position: [facility] RN Member Role: Primary Care Nurse Name: Orin Elmore RN Position: [facility] ED RN W/OE and Tasks Member Role: Primary Care Nurse Name: Allegra Liu RN Position: [facility] AMB Nurse Member Role: Primary Care Nurse Name: Shayan Pandya MD Position: [facility] Renal MD Member Role: Lifetime Consulting Physician Address: Address: [address] [facility] [place] [place] [address]- Name: Darlene Rodrigez RN Position: S RN [...] Related Persons Name: MARLEN CABEZAS Address: home [address] [place] [id number] Name: MARLEN CABEZAS Address: home [address] [place] [address] Name: NICK CABEZAS Name: GEMA CABEZAS Address: home [address] [place] [address]
--- OUTSIDE RECORDS SUMMARY | 2023-12-15 20:53 | XMS_ITS | Continuity of Care Document ---
Author Organization [facility] Address [address] [place] [address]- Care Team Providers Care Grade Foreman Name Role Phone Jany Baig DO Primary Care Physician ( [phone] Encounter [facility] Date(s): 07/09/22 - 08/08/22 [facility] [address] [place] [address]- Allergies, Adverse Reactions, Alerts Substance Reaction Severity [...] n 1Result Comment: [facility]: [id number] 2Result Comment: [04/29/2017] [id number] 3Admin Note: FLUARIX 4Admin Note: 3 RDINJ 5Admin Note: #2 Medications acetaminophen 500 mg oral tablet 1 tablet, By Mouth, 4 times a day, PRN NEEDED FOR PAIN, MAX 4, PER DAY (VIAL., # 50 tablet, 11 Refills, Maintenance, 03/13/22 8:37:00 EDT, [facility], 175, cm, 01/06/22 10:34:00 EDT, Height, 78.3, kg, 12/26/21 19:05:00 EDT, Dry Weight Start Date: 03/13/22 Status: Ordered amLODIPine 5 mg oral tablet See Instructions, TAKE 1 TABLET BY MOUTH ONCE A DAY^1R1, # 30 tablet, 5 Refills, Maintenance, 05/13/22 16:24:00 EST, [facility], 175, cm, 04/09/22 15:34:00 EDT, Height, 78.3, kg, 12/26/21 19:05:00 EDT, Dry Weight Start Date: 05/13/22 Status: Ordered baclofen 10 mg oral tablet See Instructions, TAKE 1 TABLET BY MOUTH THREE TIMES DAILY, # 90 tablet, Refills 0, Maintenance, 08/07/22 12:26:00 EST, Instructions Replace Required Details, Route to Pharmacy Electronically, [facility], 176, cm, 08/07/22 11:37:00 EST, Height... Start Date: 08/07/22 Status: Ordered Co Q-10 100 mg oral capsule See Instructions, TAKE 1 CAPSULE BY MOUTH FOUR TIMES DAILY, # 120 capsule, 6 Refills, Maintenance, 08/07/22 12:13:00 EST, [facility], 176, cm, 08/07/22 11:37:00 [...] Refills, Maintenance, 08/07/22 12:12:00 EST, [facility]/pharmacy #[id number], 30, USE 1 SPRAY(S) INTO EACH NOSTRIL TWICE A DAY, 176, cm,08/07/22 11:37:00 EST, Height, 79.8, kg, 07/31/22 2... Start Date: 08/07/22 Status: Ordered folic acid 1 mg oral tablet 1 mg, 1, tablet, By Mouth, Daily, # 90 tablet, Refills 4, Tot. Refills 4, Maintenance, 10/27/21 10:40:00 EDT, Route to Pharmacy Electronically, [facility], Partial fill upon patient request if the prescription is for a schedule II opioid drug.... Start Date: 10/27/21 Stop Date: 01/20/23 Status: Ordered furosemide 20 mg oral tablet See Instructions, TAKE 1 TABLET BY MOUTH ONCE A DAY^1R1, # 30 tablet, Refills 2, Maintenance, 08/07/22 12:27:00 EST, Instructions Replace Required Details, Route to Pharmacy Electronically, [facility], 176, cm, 08/07/22 11:37:00 EST, Height, 7... Start Date: 08/07/22 Status: Ordered furosemide 20 mg oral tablet 1, tablet, By Mouth, Daily, R1., # 30 tablet, Refills 5, Tot. Refills 5, Maintenance, 07/18/22 7:52:00 EST, Route to Pharmacy Electronically, [facility], 179, cm, 07/01/22 13:29:00 EST, Height, 84, kg, 06/01/22 12:27:00 EST, Dry Weight Start Date: 07/18/22 Status: Ordered gabapentin 300 mg oral capsule 300 mg, 1, capsule, By Mouth, 3 times a day, # 90 capsule, Refills 4, Tot. Refills 4, Maintenance, 08/07/22 12:12:00 EST, Route to Pharmacy Electronically, [facility]/pharmacy #[id number], Partial fill upon patient request if the prescription is for a schedule II... Start Date: 08/07/22 Stop Date: 01/04/23 Status: Ordered hydrOXYzine hydrochloride 25 mg oral tablet 1 TO 2 TABLETS, By Mouth, Daily at bedtime, PRN NEEDED FOR ANXIETY (VIAL), # 60 tablet, 11 Refills, Maintenance, 03/13/22 8:38:00 EDT, [facility], 175, cm, 01/06/22 10:34:00 EDT, Height, 78.3, kg, 12/26/21 19:05:00 EDT, Dry Weight Start Date: 03/13/22 Status: Ordered lactulose 10 gm/15 ml oral syrup See Instructions, TAKE 30ML BY MOUTH THREE TIMES DAILY NEEDED TO ACHEIVE 3-4 BOWL MOVEMENTS PER DAY, # 3,000 mL, 10 Refills, [facility], 30, TAKE 30ML BY MOUTH THREE TIMES DAILY NEEDED TO ACHEIVE 3-4 BOWL MOVEMENTS PER DAY, 174, cm, 02/12... Start Date: 07/02/21 Status: Ordered Lidoderm 5% film 1 patch, Topically, Daily, remove patches after 12 hours NSAIDS contraindicated High dose tylenol contraindicated remove patches after 12 hours Rib fracture, # 30 patch, 5 Refills, Maintenance, 08/07/22 12:09:00 EST, [facility]/pharmacy #[id number], Partial f... Start Date: 08/07/22 Status: Ordered magnesium oxide 400 mg oral tablet 1 tablet, By Mouth, 2 times a day, # 60 tablet, 11 Refills, Maintenance, 03/13/22 8:37:00 EDT, [facility], 175, cm, 01/06/22 10:34:00 EDT, Height, 78.3, kg, 12/26/21 19:05:00 EDT, Dry Weight Start Date: 03/13/22 Status: Ordered Melatonin 3 mg oral tablet 1 tablet, By Mouth, Daily at bedtime, PRN NEEDED FOR INSOMNIA (PACKAGE IN TRAY)^1R4, # 60 tablet, 5 Refills, Maintenance, 06/12/22 18:11:00 EST, [facility], 60, TAKE 1 TABLET [...] 08/07/22 12:14:00 EST, Route to Pharmacy Electronically, [facility]/pharmacy #[id number], Partial fill upon patient requestif the prescription is for a schedule II opioid remedios... Start Date: 08/07/22 Stop Date: 02/03/23 Status: Ordered Potassium Chloride (Eqv-K-Tab) 20 mEq oral tablet, extended release 2 tablet, By Mouth, Daily, # 180 tablet, 1 Refills, Maintenance, 05/13/22 9:48:00 EST, [facility], 175, cm, 04/09/22 15:34:00 EDT, Height, 78.3, kg, 12/26/21 19:05:00 EDT, Dry Weight Start Date: 05/13/22 Stop Date: 11/09/22 Status: Ordered pyridoxine 50 mg oral tablet 50 mg, 1, tablet, By Mouth, Daily, for 90 days, # 90 tablet, Refills 4, Tot. Refills 4, Acute 01/15/23 11:42:00 EDT, 10/22/21 11:42:00 EDT, Route to Pharmacy Electronically, [facility], Partial fill upon patient request if [...] 9 Refills, 08/07/22 12:27:00 EST, [facility]/pharmacy #[id number], 28, 1tablet By Mouth Daily, 176, cm, 08/07/22 11:37:00 EST, Height, 79.8, kg, 07/31/22 22:40:00 EST, DryWeight Start Date: 08/07/22 Status: Ordered tranexamic acid 650 mg oral tablet 1 tablet = 650 mg, By Mouth, Daily, # 19 tablet, 0 Refills, Maintenance, 08/01/22 16:17:00 EST, Tablet, [facility]/pharmacy #[id number], Partial fill upon patient request if the prescription is for a schedule II opioid drug., 176, cm, 08/01/22 15:52:00 EST, Height... Start Date: 08/01/22 Stop Date: 08/20/22 Status: Ordered traZODone 50 mg oral tablet 2 TO 3 TABLETS, By Mouth, Daily at bedtime, #28 VIAL)^2R4., # 90 tablet, Refills 5, Maintenance, 06/12/22 18:11:00 EST, Route to Pharmacy Electronically, [facility], 179, cm, 06/08/22 7:37:00EST, Height, 84, kg, 06/01/22 12:27:00 EST, Dry Weight Start Date: 06/12/22 Status: Ordered Vitamin B1 100 mg oral tablet 1, tablet, By Mouth, Daily, # 90 tablet, Refills 3, Maintenance, 03/13/22 8:37:00 EDT, Route to Pharmacy Electronically, [facility], 175, cm, 01/06/22 10:34:00 EDT, Height, 78.3, kg, 12/26/2218:05:00 EDT, Dry Weight Start Date: 03/13/22 Status: Ordered Xifaxan 550 mg oral tablet 1 tablet, By Mouth, 2 times a day, ^1R1,1R4., # 60 tablet, 1 Refills, Maintenance, 06/12/22 18:10:00 EST, [facility], 179, cm, 06/08/22 7:37:00 EST, Height, [...] Team Personnel Name: Alexandra Colmenares RN Position: [facility] ED RN W/OE and Tasks Member Role: Primary Care Nurse Name: Garima Manzano RN Position: [facility] RN Member Role: Primary Care Nurse Name: Malgorzata Marinelli RN Position: S RN Member Role: Primary Care Nurse Name: Joyce Roach RN Position: [facility] RN Member Role: Primary Care Nurse Name: Mary Suazo RN Position: [facility] RN Member Role: Primary Care Nurse Name: Danyel Davis RN Position: [facility] RN Member Role: Primary Care Nurse Name: Andres Pressley RN Position: [facility] RN Member Role: Primary Care Nurse Name: Jany Baig DO Position: [facility] Primary Care Physician Member Role: PCP Address: Address: [address] [place] [address] Adult [facility] [place] [address]- Name: Neida Ballard RN Position: [facility] RN Member Role: Primary Care Nurse Name: Kaye Payne RN Position: [facility] RN Member Role: Primary Care Nurse Name: Garima Hutchinson Position: [facility] RN Member Role: Primary Care Nurse Name: Malgorzata Austin Position: [facility] RN Member Role: Primary Care Nurse Name: Torrie Hernandez RN Position: [facility] OB RN Member Role: Primary Care Nurse Name: Gretchen Knutson RN Position: [facility] SN RN Member Role: Primary Care Nurse Name: Aislinn Mckee RN Position: [facility] RN Member Role: Primary Care Nurse Name: Ashley Mcelroy Position: [facility] RN Member Role: Primary Care Nurse Name: Cody Garcia Position: [facility] Associate Professional Member Role: Lifetime Consulting Provider Address: Address: [address] [place] [address]- Name: Ge Covarrubias RN Position: [facility] RN Member Role: Primary Care Nurse Name: Orin Elmore RN Position: [facility] ED RN W/OE and Tasks Member Role: Primary Care Nurse Name: Noe RN, Allegra Elliott Position: [facility] PCO RN Member Role: Primary Care Nurse Name: Shayan Pandya MD Position: [facility] Renal MD Member Role: Lifetime Consulting Physician Address: Address: [address] [address] [facility] [place] [address]- Name: Darlene Rodrigez RN Position: [facility] RN Member Role: Primary Care Nurse Name: Kwan Mills RN Position: [facility] RN Member Role: Primary Care Nurse Name: Dolores Can RN Position: [facility] RN Member Role: Primary Care Nurse Name: Kim Rendon RN Position: [facility] RN Member Role: Primary Care Nurse Name: Monica Rowell RN Position: [facility] RN Member Role: Primary Care Nurse Care Team Related Persons Name: MARLEN CABEZAS Address: home [address] [place] [id number] Name: MARLEN CABEZAS Address: home [address] [place] [address] Name: NICK CABEZAS Name: GEMA CABEZAS Address: home [address] [place] [address]
--- OUTSIDE RECORDS SUMMARY | 2023-12-15 20:53 | XMS_ITS | Continuity of Care Document ---
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 Phone Jany Baig DO Primary Care Physician Encounter [facility] Date(s): 08/14/22 - 09/13/22 [facility] [address] [place] [address]- Allergies, Adverse Reactions, Alerts Substance Reaction Severity [...] acel (oldterm) 08/02/12 Give n 1Result Comment: [facility]: [id number] 2Result Comment: [04/29/2017] [id number] 3Admin Note: FLUARIX 4Admin Note: 3 RDINJ 5Admin Note: #2 Medications acamprosate 333 mg oral delayed release tablet 1 tablet = 333 mg, By Mouth, 3 times a day, # 90 tablet, 4 Refills, Maintenance, 09/03/22 14:59:00 EDT, [facility], Partial fill upon patient request if the prescription is for a schedule II opioid drug., 169, cm, 09/03/22 14:21:00... Start Date: 09/03/22 Status: Ordered amLODIPine 5 mg oral tablet See Instructions, TAKE 1 TABLET BY MOUTH ONCE A DAY^1R1, # 30 tablet, 5 Refills, Maintenance, 05/13/22 16:24:00 EST, [facility], 175, cm, 04/09/22 15:34:00 EDT, Height, 78.3, kg, 12/26/21 19:05:00 EDT, Dry Weight Start Date: 05/13/22 Status: Ordered baclofen 10 mg oral tablet See Instructions, TAKE 1 TABLET BY MOUTH THREE TIMES DAILY, # 90 tablet, Refills 0, Maintenance, 08/07/22 12:26:00 EST, Instructions Replace Required Details, Route to Pharmacy Electronically, [facility], 176, cm, 08/07/22 11:37:00 EST, Height... Start Date: 08/07/22 Status: Ordered Co Q-10 100 mg oral capsule See Instructions, TAKE 1 CAPSULE BY MOUTH FOUR TIMES DAILY, # 120 capsule, 6 Refills, Maintenance, 08/07/22 12:13:00 EST, [facility], 176, cm, 08/07/22 11:37:00 EST, Height, [...] EST, [facility]/pharmacy #[id number], 30, USE 1 SPRAY(S) INTO EACH NOSTRIL TWICE A DAY, 176, cm,08/07/22 11:37:00 EST, Height, 79.8, kg, 07/31/22 2... Start Date: 08/07/22 Status: Ordered folic acid 1 mg oral tablet 1 mg, 1, tablet, By Mouth, Daily, # 90 tablet, Refills 4, Tot. Refills 4, Maintenance, 10/27/21 10:40:00 EDT, Route to Pharmacy Electronically, [facility], Partial fill upon patient request if the prescription is for a schedule II opioid drug.... Start Date: 10/27/21 Stop Date: 01/20/23 Status: Ordered furosemide 20 mg oral tablet 1, tablet, By Mouth, Daily, R1., # 30 tablet, Refills 5, Tot. Refills 5, Maintenance, 09/03/22 14:50:00 EDT, Route to Pharmacy Electronically, [facility], 169, cm, 09/03/22 14:21:00 EDT, Height, 69, kg, 08/16/22 1:04:00 EST, Dry Weight Start Date: 09/03/22 Status: Ordered gabapentin 300 mg oral capsule 300 mg, 1, capsule, By Mouth, 2 times a day, note dose/frequency change, # 180 capsule, Refills 4, Tot. Refills 4, Maintenance, 09/03/22 14:55:00 EDT, Route to Pharmacy Electronically, [facility], 169, cm, 09/03/22 14:21:00 EDT, Height, 69, kg... Start Date: 09/03/22 Stop Date: 11/27/23 Status: Ordered hydrOXYzine hydrochloride 25 mg oral tablet 1 TO 2 TABLETS, By Mouth, Daily at bedtime, PRN NEEDED FOR ANXIETY (VIAL), # 60 tablet, 11 Refills, Maintenance, 03/13/22 8:38:00 EDT, [facility], 175, cm, 01/06/22 10:34:00 EDT, Height, 78.3, kg, 12/26/21 19:05:00 EDT, Dry Weight Start Date: 03/13/22 Status: Ordered lactulose 10 gm/15 ml oral syrup See Instructions, TAKE 30ML BY MOUTH THREE TIMES DAILY NEEDED TO ACHEIVE 3-4 BOWL MOVEMENTS PER DAY, # 3,000 mL, 10 Refills, [facility], 30, 174, cm, 02/27/21 15:17:00 EDT, Height, 81, kg,02/27/21 14:06:00 EDT, Dry Weight Start Date: 07/02/21 Status: Ordered Lidoderm 5% film 1 patch, Topically, Daily, remove patches after 12 hours NSAIDS contraindicated High dose tylenol contraindicated remove patches after 12 hours Nueropathy, # 30 patch, 5 Refills, Maintenance, 09/03/22 16:34:00 EDT, [facility], Partial klaudia... Start Date: 09/03/22 Status: Ordered magnesium oxide 400 mg oral tablet 1 tablet, By Mouth, 2 times a day, # 60 tablet, 11 Refills, Maintenance, 03/13/22 8:37:00 EDT, [facility], 175, cm, 01/06/22 10:34:00 EDT, Height, 78.3, kg, 12/26/21 19:05:00 EDT, Dry Weight Start Date: 03/13/22 Status: Ordered Melatonin 3 mg oral tablet 1 tablet, By Mouth, Daily at bedtime, PRN NEEDED FOR INSOMNIA (PACKAGE IN TRAY)^1R4, # 60 tablet, 5 Refills, Maintenance, 06/12/22 18:11:00 EST, [facility], 60, TAKE 1 TABLET [...] 09/03/22 14:53:00 EDT, Route to Pharmacy Electronically, [facility], Partial fill upon patient request if the prescription is for a schedule II opioid drug... Start Date: 09/03/22 Stop Date: 03/02/23 Status: Ordered PHENobarbital 30 mg oral tablet See Instructions, Taper 09/08-Day 1 -90mg Daily Day 2-3-60mg BID Day 4-5 30mg BID, # 15 tablet, 0 Refills, Maintenance, 09/08/22 15:05:00 EDT, [facility], Partial fill upon patient request if the prescription is for a schedule II op... Start Date: 09/08/22 Status: Ordered pyridoxine 50 mg oral tablet 50 mg, 1, tablet, By Mouth, Daily, for 90 days, # 90 tablet, Refills 4, Tot. Refills 4, Acute 01/15/23 11:42:00 EDT, 10/22/21 11:42:00 EDT, Route to Pharmacy Electronically, [facility], Partial fill upon patient request if [...] 09/03/22 17:13:00 EDT, Route to Pharmacy Electronically, [facility], 169, cm, 09/03/22 14:21:00 EDT, Height, 69, kg, 08/16/22 1:04:00 EST, Dry Weight Start Date: 09/03/22 Status: Ordered Vitamin B1 100 mg oral tablet 1, tablet, By Mouth, Daily, # 90 tablet, Refills 3, Maintenance, 03/13/22 8:37:00 EDT, Route to Pharmacy Electronically, [facility], 175, cm, 01/06/22 10:34:00 EDT, Height, 78.3, kg, 12/26/2218:05:00 EDT, Dry Weight Start Date: 03/13/22 Status: Ordered Xifaxan 550 mg oral tablet 1 tablet, By Mouth, 2 times a day, ^1R1,1R4., # 60 tablet, 1 Refills, Maintenance, 06/12/22 18:10:00 EST, [facility], 179, cm, 06/08/22 7:37:00 EST, Height, [...] Team Personnel Name: Alexandra Colmenares RN Position: [facility] ED RN W/OE and Tasks Member Role: Primary Care Nurse Name: Garima Manzano RN Position: [facility] RN Member Role: Primary Care Nurse Name: Malgorzata Marinelli RN Position: [facility] RN Member Role: Primary Care Nurse Name: Joyce Roach RN Position: [facility] RN Member Role: Primary Care Nurse Name: Mary Suazo RN Position: [facility] RN Member Role: Primary Care Nurse Name: Andres Pressley RN Position: [facility] RN Member Role: Primary Care Nurse Name: Jany Baig DO Position: [facility] Primary Care Physician Member Role: PCP Address: Address: [address] [place] [address] [facility] [address] Name: Neida Blalard RN Position: [facility] RN Member Role: Primary Care Nurse Name: Kaye Payne RN Position: [facility] RN Member Role: Primary Care Nurse Name: Garima Hutchinson Position: [facility] RN Member Role: Primary Care Nurse Name: Malgorzata Austin Position: [facility] RN Member Role: Primary Care Nurse Name: Torrie Hernandez RN Position: [facility] OB RN Member Role: Primary Care Nurse Name: Gretchen Knutson RN Position: [facility] SN RN Member Role: Primary Care Nurse Name: Aislinn Mckee RN Position: [facility] RN Member Role: Primary Care Nurse Name: Ashley Mcelroy Position: [facility] RN Member Role: Primary Care Nurse Name: Cody Garcia Position: [facility] Associate Professional Member Role: Lifetime Consulting Provider Address: Address: [address] [place] [address] Name: Ge Covarrubias RN Position: [facility] RN Member Role: Primary Care Nurse Name: Orin Elmore RN Position: [facility] ED RN W/OE and Tasks Member Role: Primary Care Nurse Name: Allegra Liu RN Position: [facility] PCO RN Member Role: Primary Care Nurse Name: Shayan Pandya MD Position: [facility] Renal MD Member Role: Lifetime Consulting Physician Address: Address: [address] [place] [address] [address] [facility], [address] Name: Darlene Rodrigez RN Position: [facility] RN Member Role: Primary Care Nurse Name: Kwan Mills RN Position: [facility] RN Member Role: Primary Care Nurse Name: Dolores Can RN Position: [facility] RN Member Role: Primary Care Nurse Name: Kim Rendon RN Position: [facility] RN Member Role: Primary Care Nurse Name: Monica Rowell RN Position: [facility] RN Member Role: Primary Care Nurse Care Team Related Persons Name: MARLEN CABEZAS Address: [address] [address] Name: MARLEN CABEZAS Address: [address] [address] Name: NICK CABEZAS Name: GEMA CABEZAS Address: [place] [address]
--- OUTSIDE RECORDS SUMMARY | 2023-12-15 20:53 | XMS_ITS | Continuity of Care Document ---
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 Role Phone Jany Baig DO Primary Care Physician Encounter [facility] Date(s): 07/22/22 - 08/21/22 [facility] [address] [place] [id number]- [place] Allergies, Adverse Reactions, Alerts Substance Reaction [...] Give n 1Result Comment: [facility]: [id number] 2Result Comment: [04/29/2017] [id number] 3Admin Note: FLUARIX 4Admin Note: 3 RDINJ 5Admin Note: #2 Medications acetaminophen 500 mg oral tablet 1 tablet, By Mouth, 4 times a day, PRN NEEDED FOR PAIN, MAX 4, PER DAY (VIAL., # 50 tablet, 11 Refills, Maintenance, 03/13/22 8:37:00 EDT, [facility], 175, cm, 01/06/22 10:34:00 EDT, Height, 78.3, kg, 12/26/21 19:05:00 EDT, Dry Weight Start Date: 03/13/22 Status: Ordered amLODIPine 5 mg oral tablet See Instructions, TAKE 1 TABLET BY MOUTH ONCE A DAY^1R1, # 30 tablet, 5 Refills, Maintenance, 05/13/22 16:24:00 EST, [facility], 175, cm, 04/09/22 15:34:00 EDT, Height, 78.3, kg, 12/26/21 19:05:00 EDT, Dry Weight Start Date: 05/13/22 Status: Ordered baclofen 10 mg oral tablet See Instructions, TAKE 1 TABLET BY MOUTH THREE TIMES DAILY, # 90 tablet, Refills 0, Maintenance, 08/07/22 12:26:00 EST, Instructions Replace Required Details, Route to Pharmacy Electronically, [facility], 176, cm, 08/07/22 11:37:00 EST, Height... Start Date: 08/07/22 Status: Ordered cephalexin monohydrate 500 mg oral capsule 1 capsule = 500 mg, By Mouth, 4 times a day, for 10 days, # 40 capsule, 0 Refills, Acute 08/24/22 13:49:00 EDT, 08/14/22 13:49:00 EST, Capsule, [facility]/pharmacy #[id number], Partial fill upon patient request if the prescription is for a schedule II opioid drug.... Start Date: 08/14/22 Stop Date: 08/24/22 Status: Ordered Co Q-10 100 mg oral capsule See Instructions, TAKE 1 CAPSULE BY MOUTH FOUR TIMES DAILY, # 120 capsule, 6 Refills, Maintenance, 08/07/22 12:13:00 EST, [facility], 176, cm, 08/07/22 11:37:00 EST, Height, [...] 11 Refills, Maintenance, 08/07/22 12:12:00 EST, [facility]/pharmacy #[id number], 30, USE 1 SPRAY(S) INTO EACH NOSTRIL TWICE A DAY, 176, cm,08/07/22 11:37:00 EST, Height, 79.8, kg, 07/31/22 2... Start Date: 08/07/22 Status: Ordered folic acid 1 mg oral tablet 1 mg, 1, tablet, By Mouth, Daily, # 90 tablet, Refills 4, Tot. Refills 4, Maintenance, 10/27/21 10:40:00 EDT, [facility], Partial fill upon patient request if the prescription is for a schedule II opioid drug.... Start Date: 10/27/21 Stop Date: 01/20/23 Status: Ordered furosemide 20 mg oral tablet See Instructions, TAKE 1 TABLET BY MOUTH ONCE A DAY^1R1, # 30 tablet, Refills 2, Maintenance, 08/07/22 12:27:00 EST, Instructions Replace Required Details, Route to Pharmacy Electronically, [facility], 176, cm, 08/07/22 11:37:00 EST, Height, 7... Start Date: 08/07/22 Status: Ordered furosemide 20 mg oral tablet 1, tablet, By Mouth, Daily, R1., # 30 tablet, Refills 5, Tot. Refills 5, Maintenance, 08/10/22 16:49:00 EST, Route to Pharmacy Electronically, [facility]/pharmacy #[id number], 176, cm, 08/07/22 11:37:00 EST, Height, 79.8, kg, 07/31/22 22:40:00 EST, Dry Weight Start Date: 08/10/22 Status: Ordered gabapentin 300 mg oral capsule 2, capsule, By Mouth, Daily at bedtime, # 180 capsule, Refills 4, Maintenance, 08/10/22 16:53:00 EST, Route to Pharmacy Electronically, [id number], 176, cm, 08/07/22 11:37:00 EST, Height, 79.8, kg, 07/31/22 22:40:00 EST, Dry Weight Start Date: 08/10/22 Stop Date: 11/08/22 Status: Ordered hydrOXYzine hydrochloride 25 mg oral tablet 1 TO 2 TABLETS, By Mouth, Daily at bedtime, PRN NEEDED FOR ANXIETY (VIAL), # 60 tablet, 11 Refills, Maintenance, 03/13/22 8:38:00 EDT, [facility], 175, cm, 01/06/22 10:34:00 EDT, Height, 78.3, kg, 12/26/21 19:05:00 EDT, Dry Weight Start Date: 03/13/22 Status: Ordered lactulose 10 gm/15 ml oral syrup See Instructions, TAKE 30ML BY MOUTH THREE TIMES DAILY NEEDED TO ACHEIVE 3-4 BOWL MOVEMENTS PER DAY, # 3,000 mL, 10 Refills, [facility], 30, TAKE 30ML BY MOUTH THREE TIMES DAILY NEEDED TO ACHEIVE 3-4 BOWL MOVEMENTS PER DAY, 174, cm, 02/12... Start Date: 07/02/21 Status: Ordered Lidoderm 5% film 1 patch, Topically, Daily, remove patches after 12 hours NSAIDS contraindicated High dose tylenol contraindicated remove patches after 12 hours Rib fracture, # 30 patch, 5 Refills, Maintenance, 08/07/22 12:09:00 EST, [facility]/pharmacy #[id number], Partial f... Start Date: 08/07/22 Status: Ordered magnesium oxide 400 mg oral tablet 1 tablet, By Mouth, 2 times a day, # 60 tablet, 11 Refills, Maintenance, 03/13/22 8:37:00 EDT, [facility], 175, cm, 01/06/22 10:34:00 EDT, Height, 78.3, kg, 12/26/21 19:05:00 EDT, Dry Weight Start Date: 03/13/22 Status: Ordered Melatonin 3 mg oral tablet 1 tablet, By Mouth, Daily at bedtime, PRN NEEDED FOR INSOMNIA (PACKAGE IN TRAY)^1R4, # 60 tablet, 5 Refills, Maintenance, 06/12/22 18:11:00 EST, [facility], 60, TAKE 1 [...] 08/07/22 12:14:00 EST, Route to Pharmacy Electronically, [facility]/pharmacy #[id number], Partial fill upon patient requestif the prescription is for a schedule II opioid remedios... Start Date: 08/07/22 Stop Date: 02/03/23 Status: Ordered Potassium Chloride (Eqv-K-Tab) 20 mEq oral tablet, extended release 2 tablet, By Mouth, Daily, # 180 tablet, 1 Refills, Maintenance, 05/13/22 9:48:00 EST, [facility], 175, cm, 04/09/22 15:34:00 EDT, Height, 78.3, kg, 12/26/21 19:05:00 EDT, Dry Weight Start Date: 05/13/22 Stop Date: 11/09/22 Status: Ordered pyridoxine 50 mg oral tablet 50 mg, 1, tablet, By Mouth, Daily, for 90 days, # 90 tablet, Refills 4, Tot. Refills 4, Acute 01/15/23 11:42:00 EDT, 10/22/21 11:42:00 EDT, Route to Pharmacy Electronically, [facility], Partial fill upon patient request if [...] 90 tablet, 9 Refills, 08/07/22 12:27:00 EST, [facility]/pharmacy #[id number], 28, 1tablet By Mouth Daily, 176, cm, 08/07/22 11:37:00 EST, Height, 79.8, kg, 07/31/22 22:40:00 EST, DryWeight Start Date: 08/07/22 Status: Ordered tranexamic acid 650 mg oral tablet 1 tablet = 650 mg, By Mouth, Daily, # 19 tablet, 0 Refills, Maintenance, 08/01/22 16:17:00 EST, Tablet, [facility]/pharmacy #[id number], Partial fill upon patient request if the prescription is for a schedule II opioid drug., 176, cm, 08/01/22 15:52:00 EST, Height... Start Date: 08/01/22 Stop Date: 08/20/22 Status: Ordered traZODone 50 mg oral tablet 2 TO 3 TABLETS, By Mouth, Daily at bedtime, #28 VIAL)^2R4., # 90 tablet, Refills 5, Maintenance, 06/12/22 18:11:00 EST, Route to Pharmacy Electronically, [facility], 179, cm, 06/08/22 7:37:00EST, Height, 84, kg, 06/01/22 12:27:00 EST, Dry Weight Start Date: 06/12/22 Status: Ordered Vitamin B1 100 mg oral tablet 1, tablet, By Mouth, Daily, # 90 tablet, Refills 3, Maintenance, 03/13/22 8:37:00 EDT, Route to Pharmacy Electronically, [facility], 175, cm, 01/06/22 10:34:00 EDT, Height, 78.3, kg, 12/26/2218:05:00 EDT, Dry Weight Start Date: 03/13/22 Status: Ordered Xifaxan 550 mg oral tablet 1 tablet, By Mouth, 2 times a day, ^1R1,1R4., # 60 tablet, 1 Refills, Maintenance, 06/12/22 18:10:00 EST, [facility], 179, cm, 06/08/22 7:37:00 EST, Height, [...] Team Personnel Name: Alexandra Colmenares RN Position: [facility] ED RN W/OE and Tasks Member Role: Primary Care Nurse Name: Garima Manzano RN Position: [facility] RN Member Role: Primary Care Nurse Name: Malgorazta Marinelli RN Position: [facility] RN Member Role: Primary Care Nurse Name: Joyce Roach RN Position: [facility] RN Member Role: Primary Care Nurse Name: Mary Suazo RN Position: [facility] RN Member Role: Primary Care Nurse Name: Andres Pressley RN Position: [facility] RN Member Role: Primary Care Nurse Name: Jany Baig DO Position: [facility] Primary Care Physician Member Role: PCP Address: Address: [address] [place] [address] Adult & Pediatric Medicine [address] Name: Neida Ballard RN Position: [facility] RN Member Role: Primary Care Nurse Name: Kaye Payne RN Position: [facility] RN Member Role: Primary Care Nurse Name: Garima Hutchinson Position: [facility] RN Member Role: Primary Care Nurse Name: Malgorzata Austin Position: [facility] RN Member Role: Primary Care Nurse Name: Torrie Hernandez RN Position: [facility] OB RN Member Role: Primary Care Nurse Name: Gretchen Knutson RN Position: [facility] SN RN Member Role: Primary Care Nurse Name: Aislinn Mckee RN Position: [facility] RN Member Role: Primary Care Nurse Name: Ashley Mcelroy Position: [facility] RN Member Role: Primary Care Nurse Name: Cody Garcia Position: [facility] Associate Professional Member Role: Lifetime Consulting Provider Address: Address: [address] [place] [id number]- Name: Ge Covarrubias RN Position: [facility] RN Member Role: Primary Care Nurse Name: Orin Elmore RN Position: [facility] ED RN W/OE and Tasks Member Role: Primary Care Nurse Name: Allegra Liu RN Position: [facility] PCO RN Member Role: Primary Care Nurse Name: Shayan Pandya MD Position: [facility] Renal MD Member Role: Lifetime Consulting Physician Address: Address: [address] [place] [address] [address] [facility] [place] [address]- Name: Darlene Rodrigez RN Position: [facility] RN Member Role: Primary Care Nurse Name: Kwan Mills RN Position: [facility] RN Member Role: Primary Care Nurse Name: Dolores Can RN Position: [facility] RN Member Role: Primary Care Nurse Name: Kim Rendon RN Position: [facility] RN Member Role: Primary Care Nurse Name: Monica Rowell RN Position: [facility] RN Member Role: Primary Care Nurse Care Team Related Persons Name: DUCBRIANWUMARLEN Address: home [address] [place] [address] Name: MARLEN CABEZAS Address: home [address] [place] [address] Name: NICK CABEZAS Name: GEMA CABEZAS Address: home [address] [place] [address]
--- OUTSIDE RECORDS SUMMARY | 2023-12-15 20:53 | XMS_ITS | Continuity of Care Document ---
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 Name Role Phone Jany Baig DO Primary Care Physician [facility] Date[facility]): 09[facility]22 - 10/04/22 [facility] [address] [place] [address]- Allergies, Adverse Reactions, Alerts Substance Reaction Severity [...] n 1Result Comment: [facility]: [id number] 2Result Comment: [04/29/2017] [id number] 3Admin Note: FLUARIX 4Admin Note: 3 RDINJ 5Admin Note: #2 Medications acamprosate 333 mg oral delayed release tablet 1 tablet = 333 mg, By Mouth, 3 times a day, # 90 tablet, 4 Refills, Maintenance, 09/03/22 14:59:00 EDT, EC Tablet, [facility], Partial fill upon patient request if the prescription is for a schedule II opioid drug., 169, cm, 09/03/22 14:21:00... Start Date: 09/03/22 Status: Ordered amLODIPine 5 mg oral tablet See Instructions, TAKE 1 TABLET BY MOUTH ONCE A DAY^1R1, # 30 tablet, 5 Refills, Maintenance, 05/13/22 16:24:00 EST, [facility], 175, cm, 04/09/22 15:34:00 EDT, Height, 78.3, kg, 12/26/21 19:05:00 EDT, Dry Weight Start Date: 05/13/22 Status: Ordered baclofen 10 mg oral tablet See Instructions, TAKE 1 TABLET BY MOUTH THREE TIMES DAILY, # 90 tablet, Refills 0, Maintenance, 08/07/22 12:26:00 EST, Instructions Replace Required Details, Route to Pharmacy Electronically, [facility], 176, cm, 08/07/22 11:37:00 EST, Height... Start Date: 08/07/22 Status: Ordered calcium (as carbonate)-vitamin D 500 mg-400 intl units oral tablet 1 tablet, By Mouth, Daily, ^1R1., # 28 tablet, 0 Refills, Maintenance, 10/01/22 15:19:00 EDT, [facility], 28, TAKE ONE TABLET BY MOUTH EVERY DAY ^1R1, 176, cm, 09/07/22 8:56:00 EDT, Height, 82.1, kg, 09/07/22 8:59:00 EDT, Dry Weight Start Date: 10/01/22 Status: Ordered Co Q-10 100 mg oral capsule See Instructions, TAKE 1 CAPSULE BY MOUTH FOUR TIMES DAILY, # 120 capsule, 6 Refills, Maintenance, 08/07/22 12:13:00 EST, [facility], 176, cm, 08/07/22 11:37:00 [...] 08/07/22 12:12:00 EST, [facility]/pharmacy #[id number], 30, USE 1 SPRAY(S) INTO EACH NOSTRIL TWICE A DAY, 176, cm,08/07/22 11:37:00 EST, Height, 79.8, kg, 07/31/22 2... Start Date: 08/07/22 Status: Ordered folic acid 1 mg oral tablet 1 mg, 1, tablet, By Mouth, Daily, # 90 tablet, Refills 4, Tot. Refills 4, Maintenance, 10/27/21 10:40:00 EDT, Route to Pharmacy Electronically, [facility], Partial fill upon patient request if the prescription is for a schedule II opioid drug.... Start Date: 10/27/21 Stop Date: 01/20/23 Status: Ordered furosemide 20 mg oral tablet 1, tablet, By Mouth, Daily, R1., # 30 tablet, Refills 5, Tot. Refills 5, Maintenance, 09/03/22 14:50:00 EDT, Route to Pharmacy Electronically, [facility], 169, cm, 09/03/22 14:21:00 EDT, Height, 69, kg, 08/16/22 1:04:00 EST, Dry Weight Start Date: 09/03/22 Status: Ordered gabapentin 300 mg oral capsule 300 mg, 1, capsule, By Mouth, 2 times a day, note dose/frequency change, # 180 capsule, Refills 4, Tot. Refills 4, Maintenance, 09/03/22 14:55:00 EDT, [facility], 169, cm, 09/03/22 14:21:00 EDT, Height, 69, kg... Start Date: 09/03/22 Stop Date: 11/27/23 Status: Ordered hydrOXYzine hydrochloride 10 mg oral tablet 2 tablet, By Mouth, 2 times a day, PRN NEEDED FOR ANXIETY (VIAL), # 30 tablet, 3 Refills, Maintenance, 09/24/22 17:01:00 EDT, [facility], 176, cm, 09/07/22 8:56:00 EDT, Height, 82.1, kg, 09/07/22 8:59:00 EDT, Dry Weight Start Date: 09/24/22 Status: Ordered lactulose 10 gm/15 ml oral syrup 15 mL, By Mouth, 2 times a day, # 120 mL, 6 Refills, Maintenance, 09/22/22 12:15:00 EDT, [facility], 4, TAKE 15ML BY MOUTH TWO TIMES A DAY, 176, cm, 09/07/22 8:56:00 EDT, Height, 82.1, kg, 09/07/22 8:59:00 EDT, Dry Weight Start Date: 09/22/22 Status: Ordered Lidoderm 5% film 1 patch, Topically, Daily, remove patches after 12 hours NSAIDS contraindicated High dose tylenol contraindicated remove patches after 12 hours Nueropathy, # 30 patch, 5 Refills, Maintenance, 09/03/22 16:34:00 EDT, [facility], Partial klaudia... Start Date: 09/03/22 Status: Ordered magnesium oxide 400 mg oral tablet 1 tablet, By Mouth, 2 times a day, # 60 tablet, 11 Refills, Maintenance, 03/13/22 8:37:00 EDT, [facility], 175, cm, 01/06/22 10:34:00 EDT, Height, 78.3, kg, 12/26/21 19:05:00 EDT, Dry Weight Start Date: 03/13/22 Status: Ordered Melatonin 3 mg oral tablet 1 tablet, By Mouth, Daily at bedtime, PRN NEEDED FOR INSOMNIA (PACKAGE IN TRAY)^1R4, # 60 tablet, 5 Refills, Maintenance, 06/12/22 18:11:00 EST, [facility], 60, TAKE 1 TABLET [...] 09/03/22 14:53:00 EDT, [facility], Partial fill upon patient request if the prescription is for a schedule II opioid drug... Start Date: 09/03/22 Stop Date: 03/02/23 Status: Ordered PHENobarbital 30 mg oral tablet See Instructions, Taper 09/08-Day 1 -90mg Daily Day 2-3-60mg BID Day 4-5 30mg BID, # 15 tablet, 0 Refills, Maintenance, 09/08/22 15:05:00 EDT, [facility], Partial fill upon patient request if the prescription is for a schedule II op... Start Date: 09/08/22 Status: Ordered pyridoxine 50 mg oral tablet 50 mg, 1, tablet, By Mouth, Daily, for 90 days, # 90 tablet, Refills 4, Tot. Refills 4, Acute 01/15/23 11:42:00 EDT, 10/22/21 11:42:00 EDT, Route to Pharmacy Electronically, [facility], Partial fill upon patient request if [...] 90 tablet, 9 Refills, 08/07/22 12:27:00 EST, [facility]/pharmacy #[id number], 28, 1tablet By Mouth Daily, 176, cm, 08/07/22 11:37:00 EST, Height, 79.8, kg, 07/31/22 22:40:00 EST, DryWeight Start Date: 08/07/22 Status: Ordered traZODone 50 mg oral tablet 2 tablets, By Mouth, Daily at bedtime, # 60 each, Refills 5, Tot. Refills 5, Maintenance, 09/03/22 17:13:00 EDT, Route to Pharmacy Electronically, [facility], 169, cm, 09/03/22 14:21:00 EDT, Height, 69, kg, 08/16/22 1:04:00 EST, Dry Weight Start Date: 09/03/22 Status: Ordered Vitamin B1 100 mg oral tablet 1, tablet, By Mouth, Daily, # 90 tablet, Refills 3, Maintenance, 03/13/22 8:37:00 EDT, Route to Pharmacy Electronically, [facility], 175, cm, 01/06/22 10:34:00 EDT, Height, 78.3, kg, 12/26/2218:05:00 EDT, Dry Weight Start Date: 03/13/22 Status: Ordered Xifaxan 550 mg oral tablet 1 tablet, By Mouth, 2 times a day, ^1R1,1R4., # 60 tablet, 3 Refills, Maintenance, 10/01/22 15:19:00 EDT, [facility], 176, cm, 09/07/22 8:56:00 EDT, Height, [...] Team Personnel Name: Alexandra Colmenares RN Position: [facility] ED RN W/OE and Tasks Member Role: Primary Care Nurse Name: Garima Manzano RN Position: [facility] RN Member Role: Primary Care Nurse Name: Malgorzata Marinelli RN Position: [facility] RN Member Role: Primary Care Nurse Name: Joyce Roach RN Position: [facility] RN Member Role: Primary Care Nurse Name: Mary Suazo RN Position: [facility] RN Member Role: Primary Care Nurse Name: Andres Pressley RN Position: [facility] RN Member Role: Primary Care Nurse Name: Jany Baig DO Position: [facility] Primary Care Physician Member Role: PCP Address: Address: [address] [place] [address] [facility] [address] Name: Neida Ballard RN Position: [facility] RN Member Role: Primary Care Nurse Name: Kaye aPyne RN Position: [facility] RN Member Role: Primary Care Nurse Name: Garima Hutchinson Position: [facility] RN Member Role: Primary Care Nurse Name: Malgorzata Austin Position: [facility] RN Member Role: Primary Care Nurse Name: Torrie Hernandez RN Position: [facility] OB RN Member Role: Primary Care Nurse Name: Gretchen Knutson RN Position: [facility] SN RN Member Role: Primary Care Nurse Name: Aislinn Mckee RN Position: [facility] RN Member Role: Primary Care Nurse Name: Ashley Mcelroy Position: [facility] RN Member Role: Primary Care Nurse Name: Cody Garcia Position: [facility] Associate Professional Member Role: Lifetime Consulting Provider Address: Address: [address] [place] [id number]- Name: Ge Covarrubias RN Position: [facility] RN Member Role: Primary Care Nurse Name: Orin Elmore RN Position: [facility] ED RN W/OE and Tasks Member Role: Primary Care Nurse Name: Allegra Liu RN Position: [facility] PCO RN Member Role: Primary Care Nurse Name: Shayan Pandya MD Position: [facility] Renal MD Member Role: Lifetime Consulting Physician Address: Address: [address] [facility], [place] [address]- Name: Darlene Rodrigez RN Position: S RN [...] Team Related Persons Name: MARLEN CABEZAS Address: [address] [address] Name: MARLEN CABEZAS Address: home [address] [place] [id number] Name: NICK CABEZAS Name: GEMA CAB[place]ZAS Address: [place] [address]
--- OUTSIDE RECORDS SUMMARY | 2023-12-15 20:53 | XMS_ITS | Continuity of Care Document ---
Author Organization [facility] Address [address] [place] [address]- Care Team Providers Care Tableau Architect Name Role Phone Jany Baig DO Primary Care Physician [facility] Date[facility]s): 05/21/21 - 06/20/21 [facility] [address] [place] [address]- Allergies, Adverse Reactions, Alerts Substance Reaction Severity [...] (oldterm) 08/02/12 Give n 1Result Comment: [04/29/2017] 54599-856-70 2Admin Note: FLUARIX 3Admin Note: 3 RDINJ 4Admin Note: #2 Medications baclofen 10 mg oral tablet 1, tablet, By Mouth, 3 times a day, # 90 tablet, Refills 0, Route to Pharmacy Electronically, [facility], 174, cm, 02/27/21 15:17:00 EDT, Height, 81, kg, 02/27/21 14:06:00 EDT, Dry Weight Start Date: 06/16/21 Status: Ordered chantix 1mg tablet 1 tablet, By Mouth, 2 times a day, # 56 tablet, 0 Refills, Acute, 11/22/20 16:13:00 EDT, [facility], 178, cm, 11/12/20 15:32:00 EDT, Height, 84.9, kg, 08/31/20 1:07:00 EDT, Dry Weight Start Date: 11/22/20 Status: Ordered Co Q-10 100 mg oral capsule See Instructions, TAKE 1 CAPSULE BY MOUTH FOUR TIMES DAILY, # 120 capsule, 7 Refills, Maintenance, [facility], 178, cm, 10/22/20 13:17:00 EDT, [...] # 16 Gm, 5 Refills, Maintenance, [facility], 30, USE 1 SPRAY INTO EACH NOSTRIL TWICE A DAY, 178, cm, 01/07/21 17:59:00 EDT, Height, 81.4, kg, 12/03/20 13:52:00 EDT, Dry Weight Start Date: 01/17/21 Status: Ordered gabapentin 600 mg oral tablet 1 tablet, By Mouth, 4 times a day, # 120 tablet, 0 Refills, [facility], 174, cm, 02/27/21 15:17:00 EDT, Height, 81, kg, 02/27/21 14:06:00 EDT, Dry Weight Start Date: 06/16/21 Status: Ordered hydrOXYzine hydrochloride 25 mg oral tablet 1 TO 2 TABLETS, By Mouth, 3 times a day, PRN NEEDED FOR ANXIETY (VIAL), # 60 tablet, 0 Refills, [facility], 174, cm, 02/27/21 15:17:00 EDT, Height, 81, kg, 02/27/21 14:06:00 EDT, Dry Weight Start Date: 06/16/21 Status: Ordered Melatonin 3 mg oral tablet 1 tablet, By Mouth, Daily at bedtime, PRN NEEDED FOR INSOMNIA (PACKAGE IN TRAY), # 60 tablet, 5 Refills, Maintenance, 06/02/21 16:17:00 EST, [facility], 28, 1 tablet By Mouth [...] Dry Weight Start Date: 06/16/21 Status: Ordered sertraline 100 mg oral tablet 1 tablet = 100 mg, By Mouth, Daily, combine with 50mg tab to equal 150mg daily, # 90 tablet, 1 Refills, Maintenance, 10/06/19 15:57:00 EDT, Tablet, [facility], 175, cm, 08/24/19 14:14:00 EDT,Height, 81.2, kg, 02/04/19 1:40:00 EDT, Dry Weight Start Date: 10/06/19 Status: Ordered sertraline 50 mg oral tablet 1 tablet, By Mouth, Daily, TAKE ALONG WITH A 100MG TABLET to equal 150mg daily, # 90 tablet, 1 Refills, Maintenance, 10/06/19 15:57:00 EDT, [facility], 175, cm, 08/24/19 14:14:00 EDT, [...] # 30 tablet, 10 Refills, Maintenance, [facility], 28, TAKE 1 TABLET BY [...] Required Details, Route to Pharmacy Electronically, [facility], 174,cm, 02/11/21 12:09:00 EDT, Height, 86.6, kg, ... Start Date: 02/15/21 Status: Ordered Vitamin B1 100 mg oral tablet 1, tablet, By Mouth, Daily, # 90 tablet, Refills 1, Route to Pharmacy Electronically, [facility], 174, cm, 02/27/21 15:17:00 EDT, [...]
--- OUTSIDE RECORDS SUMMARY | 2023-12-15 20:53 | XMS_ITS | Continuity of Care Document ---
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 Refills 0, Maintenance, 08/29/20 13:57:00 EDT, Route to Pharmacy Electronically, [facility],175, cm, 04/02/20 0:35:00 EDT, Height, 100, kg, ... Start Date: 08/29/20 Stop Date: 09/28/20 Status: Ordered chantix 1mg tablet 1 tablet, By Mouth, 2 times a day, for 12 week(s), # 56 tablet, 0 Refills, Acute, 09/05/20 17:32:00EDT, [email or web address], 178, cm, 08/31/20 11:25:00 EDT, Height, 84.9, kg, 08/31/20 1:07:00 EDT, Dry Weight Start Date: 09/05/20 Stop Date: 11/28/20 Status: Ordered Co Q-10 100 mg oral capsule 1 capsule, By Mouth, 4 times a day, # 120 capsule, 11 Refills, Maintenance, 11/21/19 10:36:00 EDT, [facility]acy #[id number], 175, cm, 08/24/19 14:14:00 EDT, Height, 81.2, kg, 02/04/19 1:40:00 EDT, Dry Weight Start Date: 11/21/19 Stop Date: 11/15/20 Status: Ordered Engerix-B 20 mcg/mL intramuscular suspension = 20 mcg, Intramuscular, Every 30 days, rpt at 1 and 6 months, # 1 mL, 2 Refills, Maintenance, 11/02/19 9:02:00 EDT, Suspension, [facility]acy #[id number], 175, cm, 08/24/19 14:14:00 EDT, Height, 81.2, kg, 02/04/19 1:40:00 EDT, Dry Weight Start Date: 11/02/19 Status: Ordered fluticasone 50 mcg/inh nasal spray See Instructions, SPRAY 1 SPRAY INTO EACH NOSTRIL TWICE A DAY, # 16 Gm, 5 Refills, 07/09/20 11:38:00 EST, [facility], 30, SPRAY 1 SPRAY INTO EACH NOSTRIL TWICE A DAY, 175, cm, 04/02/20 0:35:00 EDT, Height, 100, kg, 04/02/20 0:35:00 EDT, Dry We... Start Date: 07/09/20 Status: Ordered gabapentin 600 mg oral tablet 1 tablet, By Mouth, 4 times a day, # 120 tablet, 0 Refills, Maintenance, 09/05/20 17:32:00 EDT, [facility], 178, cm, 08/31/20 11:25:00 EDT, Height, 84.9, kg, 08/31/20 1:07:00 EDT, Dry Weight Start Date: 09/05/20 Status: Ordered hydrOXYzine hydrochloride 25 mg oral tablet 1 TO 2 TABLETS, By Mouth, 3 times a day, PRN NEEDED FOR ANXIETY (VIAL), # 60 tablet, 0 Refills, Acute, 09/05/20 17:32:00 EDT, [facility], 178, cm, 08/31/20 11:25:00 EDT, [...] 11/25/20 16:37:00 EDT, 12/01/19 16:37:00 EDT, Syrup, [facility], re sent from 10/04/17, 30... Start Date: 12/01/19 Stop Date: 11/25/20 Status: Ordered melatonin 3 mg oral tablet 1 tablet = 3 mg, By Mouth, Daily at bedtime, PRN for insomnia, # 60 tablet, 4 Refills, Maintenance,07/18/20 17:30:00 EST, Tablet, [facility], 175, cm, 04/02/20 0:35:00 EDT, Height, 100, kg, 04/02/20 0:35:00 EDT, Dry Weight Start Date: 07/18/20 Status: Ordered mupirocin 2% topical ointment See Instructions, APPLY TOPICALLY THREE TIMES DAILY (APPLY A THIN FILM), # 22 Gm, 0 Refills, Maintenance, 04/16/20 14:45:00 EST, [facility]/pharmacy #[id number], 8, APPLY TOPICALLY THREE TIMES DAILY [...] 1 Refills, Maintenance, 10/06/19 15:57:00 EDT, Tablet, [facility], 175, cm, 08/24/19 14:14:00 EDT,Height, 81.2, kg, 02/04/19 1:40:00 EDT, Dry Weight Start Date: 10/06/19 Status: Ordered sertraline 50 mg oral tablet 1 tablet, By Mouth, Daily, TAKE ALONG WITH A 100MG TABLET to equal 150mg daily, # 90 tablet, 1 Refills, Maintenance, 10/06/19 15:57:00 EDT, [facility], 175, cm, 08/24/19 14:14:00 EDT, Height,81.2, kg, 02/04/19 1:40:00 EDT, Dry Weight Start Date: 10/06/19 Status: Ordered sildenafil 50 mg oral tablet 1 tablet = 50 mg, By Mouth, Daily, PRN erectile dysfunction, 1 hour before sexual activity, # 6 tablet, 5 Refills, Maintenance, 03/11/20 14:37:00 EDT, Tablet, [facility]acy #[id number], 175, cm, 08/24/19 14:14:00 EDT, Height, 81.2, kg, 02/04/19 1:40:00 EDT,... Start Date: 03/11/20 Status: Ordered Tab-A-Jesse oral tablet See Instructions, TAKE 1 TABLET BY MOUTH ONCE A DAY, # 30 tablet, 10 Refills, Maintenance, [facility], 28, TAKE 1 TABLET [...] Replace Required Details, Route to Pharmacy Electronically, [facility], 178, cm, 08/31/20 11:25:00 EDT, Height, 84.... Start Date: 09/05/20 Status: Ordered Vitamin B1 100 mg oral tablet 1, tablet, By Mouth, Daily, # 90 tablet, Refills 2, Tot. Refills 0, Acute, 09/05/20 17:32:00 EDT, Route to Pharmacy Electronically, [facility], 178, cm, 08/31/20 11:25:00 EDT, [...]
--- OUTSIDE RECORDS SUMMARY | 2023-12-15 20:53 | XMS_ITS | Continuity of Care Document ---
Author Organization [facility] Address [address] [place] [address]- Care Team Providers Care Lending Manager Name Role Phone Jany Baig DO Primary Care Physician Encounter [facility] Date(s): 02/16/20 - 03/17/20 [facility] [address] [place] [address]- [facility] Allergies, Adverse Reactions, Alerts Substance Reaction [...] n 1Admin Note: #2 2Result Comment: [04/29/2017] [id number] 3Admin Note: FLUARIX 4Admin Note: 3 RDINJ Medications baclofen 10 mg oral tablet 10 mg, 1, tablet, By Mouth, 3 times a day, # 90 tablet, Refills 4, Tot. Refills 4, Maintenance, 02/16/20 17:55:00 EDT, Route to Pharmacy Electronically, [facility], 175, cm, 08/24/19 14:14:00EDT, Height, 81.2, kg, 02/04/19 1:40:00 EDT, Dry We... Start Date: 02/16/20 Stop Date: 07/15/20 Status: Ordered chantix 1mg tablet See Instructions, TAKE 1 TABLET BY MOUTH TWICE A DAY WITH A FULL GLASS OF WATER AND CONTINUE FOR A TOTAL OF 12 WEEKS, # 56 tablet, 0 Refills, Maintenance, 02/16/20 17:54:00 EDT, [facility], 175, cm, 08/24/19 14:14:00 EDT, Height, 81.2, kg, 08/... Start Date: 02/16/20 Status: Ordered Co Q-10 100 mg oral [...] # 16 Gm, 5 Refills, 01/26/20 9:52:00EDT, [facility], 30, SPRAY 1 SPRAY INTO EACH NOSTRIL TWICE A DAY, 175, cm, 08/24/19 14:14:00 EDT, Height, 81.2, kg, 02/04/19 1:40:00 EDT, Dry W... Start Date: 01/26/20 Status: Ordered gabapentin 600 mg oral tablet 1 tablet = 600 mg, By Mouth, 4 times a day, to replace prior script, # 120 tablet, 3 Refills, Maintenance, 01/26/20 14:28:00 EDT, Tablet, [facility], 175, cm, 08/24/19 14:14:00 EDT, Height, 81.2, kg, 02/04/19 1:40:00 EDT, Dry Weight Start Date: 01/26/20 Stop Date: 05/25/20 Status: Ordered lactulose 10 gm/15 ml oral syrup 30 mL = 20 Gm, By Mouth, 3 times a day, PRN Other, for 30 days, PRN to acheive 3-4 BMs per day fillin prefilled syringes, # 3,000 mL, 11 Refills, Acute 11/25/20 16:37:00 EDT, 12/01/19 16:37:00 EDT, Syrup, [facility], re sent from 10/04/17, 30... Start [...] 10:33:12 EDT, Syrup Start Date: 8/26/19 Status: Ordered Melatonin 3 mg oral tablet 1 tablet = 3 mg, By Mouth, Daily at bedtime, PRN for insomnia, # 60 tablet, 0 Refills, Maintenance,06/26/19 20:34:00 EST, Tablet Start Date: 06/26/19 Status: Ordered melatonin 3 mg oral tablet 1 tablet = 3 mg, By Mouth, Daily at bedtime, PRN for insomnia, # 60 tablet, 4 Refills, Maintenance,10/06/19 16:16:00 EDT, Tablet, [facility], 175, cm, 08/24/19 14:14:00 EDT, Height, 81.2, kg, 02/04/19 1:40:00 EDT, Dry Weight Start Date: 10/06/19 Status: Ordered mupirocin 2% topical ointment See Instructions, APPLY TOPICALLY THREE TIMES DAILY (APPLY A THIN FILM), # 22 Gm, 0 Refills, Maintenance, 02/16/20 17:55:00 EDT, [facility], 8, APPLY TOPICALLY THREE TIMES DAILY (APPLY A THINFILM), 175, cm, 08/24/19 14:14:00 EDT, Height, 81.2... Start Date: 02/16/20 Status: Ordered mupirocin 2% topical ointment See Instructions, APPLY TOPICALLY THREE TIMES DAILY (APPLY A THIN FILM), # 22 Gm, 0 Refills, Maintenance, 01/26/20 14:28:00 EDT, [facility], 8, APPLY TOPICALLY THREE TIMES DAILY (APPLY A THINFILM), 175, cm, 08/24/19 14:14:00 EDT, Height, 81.2... Start Date: 01/26/20 Status: Ordered naltrexone 50 mg oral tablet [...] EDT, Dry Weight Start Date: 01/26/20 Status: Ordered sertraline 100 mg oral tablet 1 tablet = 100 mg, By Mouth, Daily, combine with 50mg tab to equal 150mg daily, # 90 tablet, 1 Refills, Maintenance, 10/06/19 15:57:00 EDT, Tablet, [facility], 175, cm, 08/24/19 14:14:00 EDT,Height, 81.2, kg, 02/04/19 1:40:00 EDT, Dry Weight Start Date: 10/06/19 Status: Ordered sertraline 50 mg oral tablet 1 tablet, By Mouth, Daily, TAKE ALONG WITH A 100MG TABLET to equal 150mg daily, # 90 tablet, 1 Refills, Maintenance, 10/06/19 15:57:00 EDT, [facility], 175, cm, 08/24/19 14:14:00 EDT, Height,81.2, [...] Refills, Maintenance, 06/16/19 12:42:00 EST, [facility], 30, TAKE 1 TABLET BY MOUTH [...] 09/27/19 8:51:00 EDT, Route to Pharmacy Electronically, [facility], 175, cm, 08/24/19 14:14:00 EDT, Height, 81.2, kg, 02/04/19 1:40:00 EDT, Dry Weight Start Date: 09/27/19 Status: Ordered Xifaxan 550 mg oral tablet 1 tablet, By Mouth, 2 times a day, # 60 tablet, 0 Refills, Maintenance, 10/30/19 16:57:00 EDT, [facility], 175, cm, 08/24/19 14:14:00 EDT, Height, 81.2, kg, 02/04/19 1:40:00 EDT, Dry Weight Start Date: 10/30/19 Status: Ordered Xifaxan 550 mg oral tablet See Instructions, TAKE 1 TABLET BY MOUTH TWICE A DAY, # 60 tablet, 0 Refills, 02/16/20 17:54:00 EDT, [facility], 175, cm, 08/24/19 14:14:00 EDT, Height, [...]
--- OUTSIDE RECORDS SUMMARY | 2023-12-15 20:53 | XMS_ITS | Continuity of Care Document ---
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 Name Role Phone Jany Baig DO Primary Care Physician Encounter [facility] Date(s): 07/22/22 - 08/27/22 [facility] [address] [place] [address]- Attending Physician: Jany Baig DO Allergies, Adverse [...] Comment: [facility]: [id number] 2Result Comment: [04/29/2017] [id number] 3Admin Note: FLUARIX 4Admin Note: 3 RDINJ 5Admin Note: #2 Medications acetaminophen 500 mg oral tablet 1 tablet, By Mouth, 4 times a day, PRN NEEDED FOR PAIN, MAX 4, PER DAY (VIAL., # 50 tablet, 11 Refills, Maintenance, 03/13/22 8:37:00 EDT, [facility], 175, cm, 01/06/22 10:34:00 EDT, Height, 78.3, kg, 12/26/21 19:05:00 EDT, Dry Weight Start Date: 03/13/22 Status: Ordered amLODIPine 5 mg oral tablet See Instructions, TAKE 1 TABLET BY MOUTH ONCE A DAY^1R1, # 30 tablet, 5 Refills, Maintenance, 05/13/22 16:24:00 EST, [facility], 175, cm, 04/09/22 15:34:00 EDT, Height, 78.3, kg, 12/26/21 19:05:00 EDT, Dry Weight Start Date: 05/13/22 Status: Ordered baclofen 10 mg oral tablet See Instructions, TAKE 1 TABLET BY MOUTH THREE TIMES DAILY, # 90 tablet, Refills 0, Maintenance, 08/07/22 12:26:00 EST, Instructions Replace Required Details, Route to Pharmacy Electronically, [facility], 176, cm, 08/07/22 11:37:00 EST, Height... Start Date: 08/07/22 Status: Ordered Co Q-10 100 mg oral capsule See Instructions, TAKE 1 CAPSULE BY MOUTH FOUR TIMES DAILY, # 120 capsule, 6 Refills, Maintenance, 08/07/22 12:13:00 EST, [facility], 176, cm, 08/07/22 11:37:00 EST, [...] Gm, 11 Refills, Maintenance, 08/07/22 12:12:00 EST, [facility]/pharmacy #[id number], 30, USE 1 SPRAY(S) INTO EACH NOSTRIL TWICE A DAY, 176, cm,08/07/22 11:37:00 EST, Height, 79.8, kg, 07/31/22 2... Start Date: 08/07/22 Status: Ordered folic acid 1 mg oral tablet 1 mg, 1, tablet, By Mouth, Daily, # 90 tablet, Refills 4, Tot. Refills 4, Maintenance, 10/27/21 10:40:00 EDT, Route to Pharmacy Electronically, [facility], Partial fill upon patient request if the prescription is for a schedule II opioid drug.... Start Date: 10/27/21 Stop Date: 01/20/23 Status: Ordered furosemide 20 mg oral tablet See Instructions, TAKE 1 TABLET BY MOUTH ONCE A DAY^1R1, # 30 tablet, Refills 2, Maintenance, 08/07/22 12:27:00 EST, Instructions Replace Required Details, Route to Pharmacy Electronically, [facility], 176, cm, 08/07/22 11:37:00 EST, Height, 7... Start Date: 08/07/22 Status: Ordered furosemide 20 mg oral tablet 1, tablet, By Mouth, Daily, R1., # 30 tablet, Refills 5, Tot. Refills 5, Maintenance, 08/10/22 16:49:00 EST, Route to Pharmacy Electronically, [facility]/pharmacy #[id number], 176, cm, 08/07/22 11:37:00 EST, Height, [...] 08/10/22 16:53:00 EST, Route to Pharmacy Electronically, [id number], 176, cm, 08/07/22 11:37:00 EST, Height, 79.8, kg, 07/31/22 22:40:00 EST, Dry Weight Start Date: 08/10/22 Stop Date: 11/08/22 Status: Ordered hydrOXYzine hydrochloride 25 mg oral tablet 1 TO 2 TABLETS, By Mouth, Daily at bedtime, PRN NEEDED FOR ANXIETY (VIAL), # 60 tablet, 11 Refills, Maintenance, 03/13/22 8:38:00 EDT, [facility], 175, cm, 01/06/22 10:34:00 EDT, [...] patch, 5 Refills, Maintenance, 08/07/22 12:09:00 EST, [facility]/pharmacy #[id number], Partial f... Start Date: 08/07/22 Status: Ordered magnesium oxide 400 mg oral tablet 1 tablet, By Mouth, 2 times a day, # 60 tablet, 11 Refills, Maintenance, 03/13/22 8:37:00 EDT, [facility], 175, cm, 01/06/22 10:34:00 EDT, Height, 78.3, kg, 12/26/21 19:05:00 EDT, Dry Weight Start Date: 03/13/22 Status: Ordered Melatonin 3 mg oral tablet 1 tablet, By Mouth, Daily at bedtime, PRN NEEDED FOR INSOMNIA (PACKAGE IN TRAY)^1R4, # 60 tablet, 5 Refills, Maintenance, 06/12/22 18:11:00 EST, [facility], 60, TAKE 1 TABLET BY [...] 08/07/22 12:14:00 EST, Route to Pharmacy Electronically, [facility]/pharmacy #[id number], Partial fill upon patient requestif the prescription is for a schedule II opioid remedios... Start Date: 08/07/22 Stop Date: 02/03/23 Status: Ordered Potassium Chloride (Eqv-K-Tab) 20 mEq oral tablet, extended release 2 tablet, By Mouth, Daily, # 180 tablet, 1 Refills, Maintenance, 05/13/22 9:48:00 EST, [facility], 175, cm, 04/09/22 15:34:00 EDT, Height, 78.3, kg, 12/26/21 19:05:00 EDT, Dry Weight Start Date: 05/13/22 Stop Date: 11/09/22 Status: Ordered pyridoxine 50 mg oral tablet 50 mg, 1, tablet, By Mouth, Daily, for 90 days, # 90 tablet, Refills 4, Tot. Refills 4, Acute 01/15/23 11:42:00 EDT, 10/22/21 11:42:00 EDT, Route to Pharmacy Electronically, [facility], Partial fill upon patient request [...] 90 tablet, 9 Refills, 08/07/22 12:27:00 EST, [facility]/pharmacy #[id number], 28, 1tablet By Mouth Daily, 176, cm, 08/07/22 11:37:00 EST, Height, 79.8, kg, 07/31/22 22:40:00 EST, DryWeight Start Date: 08/07/22 Status: Ordered tranexamic acid 650 mg oral tablet 1 tablet = 650 mg, By Mouth, Daily, # 19 tablet, 0 Refills, Maintenance, 08/01/22 16:17:00 EST, Tablet, [facility]/pharmacy #[id number], Partial fill upon patient request if the prescription is for a schedule II opioid drug., 176, cm, 08/01/22 15:52:00 EST, Height... Start Date: 08/01/22 Stop Date: 08/20/22 Status: Ordered traZODone 50 mg oral tablet 2 TO 3 TABLETS, By Mouth, Daily at bedtime, #28 VIAL)^2R4., # 90 tablet, Refills 5, Maintenance, 06/12/22 18:11:00 EST, Route to Pharmacy Electronically, [facility], 179, cm, 06/08/22 7:37:00EST, Height, 84, kg, 06/01/22 12:27:00 EST, Dry Weight Start Date: 06/12/22 Status: Ordered Vitamin B1 100 mg oral tablet 1, tablet, By Mouth, Daily, # 90 tablet, Refills 3, Maintenance, 03/13/22 8:37:00 EDT, Route to Pharmacy Electronically, [facility], 175, cm, 01/06/22 10:34:00 EDT, Height, 78.3, kg, 12/26/2218:05:00 EDT, Dry Weight Start Date: 03/13/22 Status: Ordered Xifaxan 550 mg oral tablet 1 tablet, By Mouth, 2 times a day, ^1R1,1R4., # 60 tablet, 1 Refills, Maintenance, 06/12/22 18:10:00 EST, [facility], 179, cm, 06/08/22 7:37:00 EST, Height, [...] Team Personnel Name: Alexandra Colmenares RN Position: [facility] ED RN W/OE and Tasks Member Role: Primary Care Nurse Name: Garima Manzano RN Position: [facility] RN Member Role: Primary Care Nurse Name: Malgorzata Marinelli RN Position: [facility] RN Member Role: Primary Care Nurse Name: Joyce Roach RN Position: [facility] RN Member Role: Primary Care Nurse Name: Mary Suazo RN Position: [facility] RN Member Role: Primary Care Nurse Name: Andres Pressley RN Position: [facility] RN Member Role: Primary Care Nurse Name: Jany Baig DO Position: [facility] Primary Care Physician Member Role: PCP Address: Address: [address] [place] [address] [facility] [address] Name: Neida Ballard RN Position: [facility] RN Member Role: Primary Care Nurse Name: Kaye Payne RN Position: [facility] RN Member Role: Primary Care Nurse Name: Garima Hutchinson Position: [facility] RN Member Role: Primary Care Nurse Name: Malgorzata Austin Position: [facility] RN Member Role: Primary Care Nurse Name: Torrie Hernandez RN Position: [facility] OB RN Member Role: Primary Care Nurse Name: Gretchen Knutson RN Position: [facility] SN RN Member Role: Primary Care Nurse Name: Aislinn Mckee RN Position: [facility] RN Member Role: Primary Care Nurse Name: Ashley Mcelroy Position: [facility] RN Member Role: Primary Care Nurse Name: Cody Garcia Position: [facility] Associate Professional Member Role: [employer]etime Consulting Provider Address: Address: [address] [place] [id number]- Name: Ge Covarrubias RN Position: [facility] RN Member Role: Primary Care Nurse Name: Orin Elmore RN Position: [facility] ED RN W/OE and Tasks Member Role: Primary Care Nurse Name: Allegra Liu RN Position: [facility] PCO RN Member Role: Primary Care Nurse Name: Shayan Pandya MD Position: [facility] Renal MD Member Role: Lifetime Consulting Physician Address: Address: [address] [place] [address] [address] [facility], [place] [address]- Name: Darlene Rodrigez RN Position: [facility] RN Member Role: Primary Care Nurse Name: Kwan Mills RN Position: [facility] RN Member Role: Primary Care Nurse Name: Dolores Can RN Position: S RN Member Role: Primary Care Nurse Name: Kim Rendon RN Position: [facility] RN Member Role: Primary Care Nurse Name: Monica Rowell RN Position: [facility] RN Member Role: Primary Care Nurse Care Team Related Persons Name: MARLEN CABEZAS Address: [address] [place] [address] Name: MARLEN CABEZAS Address: [address] [place] [address] Name: NICK CABEZAS Name: GEMA CABEZAS Address: home [address] [place] [address]
--- OUTSIDE RECORDS SUMMARY | 2023-12-15 20:53 | XMS_ITS | Continuity of Care Document ---
Author Organization [facility] ter Address [address] [place] [id number]- Care Team Providers Care Cottrell Operator Name Role Phone Jany Baig DO Primary Care Physician Encounter [facility] Date(s): 09/14/22 - 09/15/[address] [address]- Encounter Diagnosis Alcohol intoxication(Final) - 09/14/22 Discharge Disposition: A-D/C Home Attending Physician: Bakari [...] n 1Result Comment: [facility]: [id number] 2Result Comment: [04/29/2017] [id number] 3Admin Note: FLUARIX 4Admin Note: 3 RDINJ 5Admin Note: #2 Medications acamprosate 333 mg oral delayed release tablet 1 tablet = 333 mg, By Mouth, 3 times a day, # 90 tablet, 4 Refills, Maintenance, 09/03/22 14:59:00 EDT, EC [facility] fill upon patient request if the prescription is for a schedule II opioid drug., 169, cm, 09/03/22 14:21:00... Start Date: 09/03/22 Status: Ordered amLODIPine 5 mg oral tablet See Instructions, TAKE 1 TABLET BY MOUTH ONCE A DAY^1R1, # 30 tablet, 5 Refills, Maintenance, 05/13/22 16:24:00 EST, [facility], 175, cm, 04/09/22 15:34:00 EDT, Height, 78.3, kg, 12/26/21 19:05:00 EDT, Dry Weight Start Date: 05/13/22 Status: Ordered baclofen 10 mg oral tablet See Instructions, TAKE 1 TABLET BY MOUTH THREE TIMES DAILY, # 90 tablet, Refills 0, Maintenance, 08/07/22 12:26:00 EST, Instructions Replace Required Details, Route to Pharmacy Electronically, [facility], 176, cm, 08/07/22 11:37:00 EST, Height... Start Date: 08/07/22 Status: Ordered Co Q-10 100 mg oral capsule See Instructions, TAKE 1 CAPSULE BY MOUTH FOUR TIMES DAILY, # 120 capsule, 6 Refills, Maintenance, 08/07/22 12:13:00 EST, [facility], 176, cm, 08/07/22 11:37:00 EST, Height, [...] Gm, 11 Refills, Maintenance, 08/07/22 12:12:00 EST, [facility]/pharmacy #[id number], 30, USE 1 SPRAY(S) INTO EACH NOSTRIL TWICE A DAY, 176, cm,08/07/22 11:37:00 EST, Height, 79.8, kg, 07/31/22 2... Start Date: 08/07/22 Status: Ordered folic acid 1 mg oral tablet 1 mg, 1, tablet, By Mouth, Daily, # 90 tablet, Refills 4, Tot. Refills 4, Maintenance, 10/27/21 10:40:00 EDT, Route to Pharmacy Electronically, [facility], Partial fill upon patient request if the prescription is for a schedule II opioid drug.... Start Date: 10/27/21 Stop Date: 01/20/23 Status: Ordered furosemide 20 mg oral tablet 1, tablet, By Mouth, Daily, R1., # 30 tablet, Refills 5, Tot. Refills 5, Maintenance, 09/03/22 14:50:00 EDT, Route to Pharmacy Electronically, [facility], 169, cm, 09/03/22 14:21:00 EDT, Height, 69, kg, 08/16/22 1:04:00 EST, Dry Weight Start Date: 09/03/22 Status: Ordered gabapentin 300 mg oral capsule 300 mg, 1, capsule, By Mouth, 2 times a day, note dose/frequency change, # 180 capsule, Refills 4, Tot. Refills 4, Maintenance, 09/03/22 14:55:00 EDT, Route to Pharmacy Electronically, [facility], 169, cm, 09/03/22 14:21:00 EDT, Height, 69, kg... Start Date: 09/03/22 Stop Date: 11/27/23 Status: Ordered hydrOXYzine hydrochloride 25 mg oral tablet 1 TO 2 TABLETS, By Mouth, Daily at bedtime, PRN NEEDED FOR ANXIETY (VIAL), # 60 tablet, 11 Refills, Maintenance, 03/13/22 8:38:00 EDT, [facility], 175, cm, 01/06/22 10:34:00 EDT, Height, 78.3, kg, 12/26/21 19:05:00 EDT, Dry Weight Start Date: 03/13/22 Status: Ordered lactulose 10 gm/15 ml oral syrup See Instructions, TAKE 30ML BY MOUTH THREE TIMES DAILY NEEDED TO ACHEIVE 3-4 BOWL MOVEMENTS PER DAY, # 3,000 mL, 10 Refills, [facility], 30, 174, cm, 02/27/21 15:17:00 EDT, Height, 81, kg,02/27/21 14:06:00 EDT, Dry Weight Start Date: 07/02/21 Status: Ordered Lidoderm 5% film 1 patch, Topically, Daily, remove patches after 12 hours NSAIDS contraindicated High dose tylenol contraindicated remove patches after 12 hours Nueropathy, # 30 patch, 5 Refills, Maintenance, 09/03/22 16:34:00 EDT, [facility], Partial klaudia... Start Date: 09/03/22 Status: Ordered magnesium oxide 400 mg oral tablet 1 tablet, By Mouth, 2 times a day, # 60 tablet, 11 Refills, Maintenance, 03/13/22 8:37:00 EDT, [facility], 175, cm, 01/06/22 10:34:00 EDT, Height, 78.3, kg, 12/26/21 19:05:00 EDT, Dry Weight Start Date: 03/13/22 Status: Ordered Melatonin 3 mg oral tablet 1 tablet, By Mouth, Daily at bedtime, PRN NEEDED FOR INSOMNIA (PACKAGE IN TRAY)^1R4, # 60 tablet, 5 Refills, Maintenance, 06/12/22 18:11:00 EST, [facility], 60, TAKE 1 TABLET BY MOUTH [...] 09/03/22 14:53:00 EDT, Route to Pharmacy Electronically, [facility], Partial fill upon patient request if the prescription is for a schedule II opioid drug... Start Date: 09/03/22 Stop Date: 03/02/23 Status: Ordered PHENobarbital 30 mg oral tablet See Instructions, Taper 09/08-Day 1 -90mg Daily Day 2-3-60mg BID Day 4-5 30mg BID, # 15 tablet, 0 Refills, Maintenance, 09/08/22 15:05:00 EDT, [facility], Partial fill upon patient request if the prescription is for a schedule II op... Start Date: 09/08/22 Status: Ordered pyridoxine 50 mg oral tablet 50 mg, 1, tablet, By Mouth, Daily, for 90 days, # 90 tablet, Refills 4, Tot. Refills 4, Acute 01/15/23 11:42:00 EDT, 10/22/21 11:42:00 EDT, Route to Pharmacy Electronically, [facility], Partial fill upon patient request if [...] 90 tablet, 9 Refills, 08/07/22 12:27:00 EST, [facility]/pharmacy #[id number], 28, 1tablet By Mouth Daily, 176, cm, 08/07/22 11:37:00 EST, Height, 79.8, kg, 07/31/22 22:40:00 EST, DryWeight Start Date: 08/07/22 Status: Ordered traZODone 50 mg oral tablet 2 tablets, By Mouth, Daily at bedtime, # 60 each, Refills 5, Tot. Refills 5, Maintenance, 09/03/22 17:13:00 EDT, Route to Pharmacy Electronically, [facility], 169, cm, 09/03/22 14:21:00 EDT, Height, 69, kg, 08/16/22 1:04:00 EST, Dry Weight Start Date: 09/03/22 Status: Ordered Vitamin B1 100 mg oral tablet 1, tablet, By Mouth, Daily, # 90 tablet, Refills 3, Maintenance, 03/13/22 8:37:00 EDT, Route to Pharmacy Electronically, [facility], 175, cm, 01/06/22 10:34:00 EDT, Height, 78.3, kg, 12/26/2218:05:00 EDT, Dry Weight Start Date: 03/13/22 Status: Ordered Xifaxan 550 mg oral tablet 1 tablet, By Mouth, 2 times a day, ^1R1,1R4., # 60 tablet, 1 Refills, Maintenance, 06/12/22 18:10:00 EST, [facility], 179, cm, 06/08/22 7:37:00 EST, Height, [...] Exam Date Time Procedure Performing Provider Status 09/15/22 12:[address] Cervical Spine W/O Contrast Arcadio Loja; Auth (Verified) Notes: (CT Cervical Spine W/O Contrast) Reason For Exam: Neck trauma, dangerous injury mechanism;Other: RESULT: CT Cervical Spine W/O Contrast CT Head/Brain W/O Contrast, CT Cervical Spine W/O Contrast Hx of Present Illness: ETOH, head injury. Reason: Headache(s). Clinical Question(s): Hematoma. TECHNIQUE: Incremental CT without contrast through the head was formatted in axial and coronal planes. Spiral CT without contrast through the cervical spine was formatted in 3 planes. Weight-based protocol using automatic tube modulation was used to optimize exposure parameters. CTDIvol Body: 18.00 mGy, DLP Body: 452 mGy*cm. CTDIvol Head: 45.40 mGy, DLP Head: 773 mGy*cm. COMPARISON: 09/07/2022, 08/24/2022. FINDINGS: BRAIN and EXTRA-AXIAL SPACES:. Unchanged right frontoparietal hematoma measuring up to 5.8 cm in length and 0.4 cm in thickness. No associated midline shift. Unchanged right frontal subdural hematoma adjacent to the falx cerebri. No associated line shift. No parenchymal hemorrhage, midline shift or mass effect. Clancy-white matter differentiation is well preserved. No [...] SPINE: No fracture. No acute osseous abnormalities. Mild, multilevel degenerative changes of the visualized spine with intervertebral disc space height loss most prominent at C6-C7. Mild anterior osteophytosis. Normal alignment. No locked or perched facet. OTHER BONES: Healing, comminuted and moderately displaced left medial clavicular fracture. Healing, minimally displaced transverse fracture of the posterior right second rib. Healing comminuted, moderately displaced textures of the left first and second ribs. In the left posterior third rib. Healing nondisplaced fracture of the right T1 transverse process. CERVICAL SOFT TISSUES AND LUNG APICES: Clear lung apices. Normal thyroid gland. IMPRESSION: No significant change in size of right frontal and parietal subdural hematomas. No acute fracture of the cervical spine. Healing fractures of the right second rib, left first, second, and third ribs, and left clavicle. No significant change from prior examination. Results were relayed by [employer] by Dr. Alvares to Shine Staples D.O. on 09/15/2022 at 12:52 AM. I have personally reviewed the images and I agree with this report. WSN: [id number] Ordering Physician: Tommy De La Vega Dictated By: Tushar Alvares MD Dictated Date/Time: 09/15/22 6:58 am Reviewed By: Gerard Espinal MD Signed By: Gerard Espinal MD Signed Date/Time: 09/15/22 7:03 am Transcribed By: MIRNA Transcribed Date/Time: 09/15/22 0:52 am * Exam Date Time Procedure Performing Provider Status 09/15/22 12:[address] Head/Brain W/O Contrast Arcadio Pretty (Verified) Notes: (CT Head/Brain W/O Contrast) Reason For Exam: Headache(s) RESULT: CT Head/Brain W/O Contrast CT Head/Brain W/O Contrast, CT Cervical Spine W/O Contrast Hx of Present Illness: ETOH, head injury. Reason: Headache(s). Clinical Question(s): Hematoma. TECHNIQUE: Incremental CT without contrast through the head was formatted in axial and coronal planes. Spiral CT without contrast through the cervical spine was formatted in 3 planes. Weight-based protocol using automatic tube modulation was used to optimize exposure parameters. CTDIvol Body: 18.00 mGy, DLP Body: 452 mGy*cm. CTDIvol Head: 45.40 mGy, DLP Head: 773 mGy*cm. COMPARISON: 09/07/2022, 08/24/2022. FINDINGS: BRAIN and EXTRA-AXIAL SPACES:. Unchanged right frontoparietal hematoma measuring up to 5.8 cm in length and 0.4 cm in thickness. No associated midline shift. Unchanged right frontal subdural hematoma adjacent to the falx cerebri. No associated line shift. No parenchymal hemorrhage, midline shift or mass effect. Clancy-white matter differentiation is well preserved. No [...] SPINE: No fracture. No acute osseous abnormalities. Mild, multilevel degenerative changes of the visualized spine with intervertebral disc space height loss most prominent at C6-C7. Mild anterior osteophytosis. Normal alignment. No locked or perched facet. OTHER BONES: Healing, comminuted and moderately displaced left medial clavicular fracture. Healing, minimally displaced transverse fracture of the posterior right second rib. Healing comminuted, moderately displaced textures of the left first and second ribs. In the left posterior third rib. Healing nondisplaced fracture of the right T1 transverse process. CERVICAL SOFT TISSUES AND LUNG APICES: Clear lung apices. Normal thyroid gland. IMPRESSION: No significant change in size of right frontal and parietal subdural hematomas. No acute fracture of the cervical spine. Healing fractures of the right second rib, left first, second, and third ribs, and left clavicle. No significant change from prior examination. Results were relayed by [employer] by Dr. Alvares to Shine Staples D.O. on 09/15/2022 at 12:52 AM. I have personally reviewed the images and I agree with this report. WSN: [id number] Ordering Physician: Tommy De La Vega Dictated By: Tushar Alvares MD Dictated Date/Time: 09/15/22 6:58 am Reviewed By: Gerard Espinal MD Signed By: Gerard Espinal MD Signed Date/Time: 09/15/22 7:03 am Transcribed By: MIRNA Transcribed Date/Time: 09/15/22 0:52 am Vital Signs Most recent to oldest [Reference Range]: 1 2 3 Oxygen Saturation [94-100 %] 99 % (09/15/22 6:04 AM) 97 % (09/15/22 3:33 AM) 96 % (09/15/22 2:16 AM) Pulse Rate [55-90 bpm] 88 bpm (09/15/22 6:04 AM) 76 bpm (09/15/22 3:33 AM) 78 bpm (09/15/22 12:30 AM) Blood Pressure [90-138/55-84 mm Hg] 112/69mm Hg (09/15/22 6:04 AM) 110/74mm Hg (09/15/22 3:33 AM) 95/65mm Hg (09/15/22 2:16 AM) Respiratory Rate [16-30 br/min] 16 br/min (09/15/22 6:04 AM) 15 br/min *L* (09/15/22 3:33 AM) 15 br/min *L* (09/15/22 2:16 AM) Social History Social History Type Response Smoking Status 10 or more cigarette s (1/2 pack or more)/day in last 30 days entered on: 02/04/19 Sex EKG study * Event Display: ECG 12-Lead Authored Date: Please click on pdf link to open report * Event Display: ECG 12-Lead Authored Date: Ventricular Rate: 95 BPM Atrial Rate: 95 BPM P-R Interval: 164 ms QRS Duration: 88 ms Q-T Interval: 402 ms QTC Calculation(Bazett): 505 ms P [place]: 36 degrees R [place]: 10 degrees T [place]: 23 degrees Normal sinus rhythm Normal ECG When compared with ECG of 16-AUG-2022 01:45, No significant change was found Confirmed by MELVINA OLIVA MD ([id number]) on 09/15/2022 8:49:35 AM [place]: MELVINA OLIVA MD Note * Shine Staples DO T: VERIFY, PERFORM, SIGN Event Display: Patient Education Handout Authored Date: CT Cervical spine WO contrast * [facility] , CIS S: TRANSCRIBE Gerard Espinal MD S: VERIFY Tushar Alvares MD T: SIGN Event Display: Result: Authored Date: CT Head/Brain W/O Contrast, CT Cervical Spine W/O Contrast Hx of Present Illness: ETOH, head injury. Reason: Headache(s). Clinical Question(s): Hematoma. TECHNIQUE: Incremental CT without contrast through the head was formatted in axial and coronal planes. Spiral CT without contrast through the cervical spine was formatted in 3 planes. Weight-based protocol using automatic tube modulation was used to optimize exposure parameters. CTDIvol Body: 18.00 mGy, DLP Body: 452 mGy*cm. CTDIvol Head: 45.40 mGy, DLP Head: 773 mGy*cm. COMPARISON: 09/07/2022, 08/24/2022. FINDINGS: BRAIN and EXTRA-AXIAL SPACES:. Unchanged right frontoparietal hematoma measuring up to 5.8 cm in length and 0.4 cm in thickness. No associated midline shift. Unchanged right frontal subdural hematoma adjacent to the falx cerebri. No associated line shift. No parenchymal hemorrhage, midline shift or mass effect. Clancy-white matter differentiation is well preserved. No [...] SPINE: No fracture. No acute osseous abnormalities. Mild, multilevel degenerative changes of the visualized spine with intervertebral disc space height loss most prominent at C6-C7. Mild anterior osteophytosis. Normal alignment. No locked or perched facet. OTHER BONES: Healing, comminuted and moderately displaced left medial clavicular fracture. Healing, minimally displaced transverse fracture of the posterior right second rib. Healing comminuted, moderately displaced textures of the left first and second ribs. In the left posterior third rib. Healing nondisplaced fracture of the right T1 transverse process. CERVICAL SOFT TISSUES AND LUNG APICES: Clear lung apices. Normal thyroid gland. IMPRESSION: No significant change in size of right frontal and parietal subdural hematomas. No acute fracture of the cervical spine. Healing fractures of the right second rib, left first, second, and third ribs, and left clavicle. No significant change from prior examination. Results were relayed by [employer] by Dr. Alvares to Shine Staples D.O. on 09/15/2022 at 12:52 AM. I have personally reviewed the images and I agree with this report. WSN: [id number] Ordering Physician: Tommy De La Vega Dictated By: Tushar Alvares MD Dictated Date/Time: 09/15/22 6:58 am Reviewed By: Gerard Espinal MD Signed By: Gerard Espinal MD Signed Date/Time: 09/15/22 7:03 am Transcribed By: MIRNA Transcribed Date/Time: 09/15/22 0:[address] Head WO contrast * [facility] , CIS S: TRANSCRIBE Gerard Espinal MD: VERIFY Tushar Alvares MD: SIGN Event Display: Result: Authored Date: [id number] CT Head/Brain W/O Contrast, CT Cervical Spine W/O Contrast Hx of Present Illness: ETOH, head injury. Reason: Headache(s). Clinical Question(s): Hematoma. TECHNIQUE: Incremental CT without contrast through the head was formatted in axial and coronal planes. Spiral CT without contrast through the cervical spine was formatted in 3 planes. Weight-based protocol using automatic tube modulation was used to optimize exposure parameters. CTDIvol Body: 18.00 mGy, DLP Body: 452 mGy*cm. CTDIvol Head: 45.40 mGy, DLP Head: 773 mGy*cm. COMPARISON: 09/07/2022, 08/24/2022. FINDINGS: BRAIN and EXTRA-AXIAL SPACES:. Unchanged right frontoparietal hematoma measuring up to 5.8 cm in length and 0.4 cm in thickness. No associated midline shift. Unchanged right frontal subdural hematoma adjacent to the falx cerebri. No associated line shift. No parenchymal hemorrhage, midline shift or mass effect. Clancy-white matter differentiation is well preserved. No [...] SPINE: No fracture. No acute osseous abnormalities. Mild, multilevel degenerative changes of the visualized spine with intervertebral disc space height loss most prominent at C6-C7. Mild anterior osteophytosis. Normal alignment. No locked or perched facet. OTHER BONES: Healing, comminuted and moderately displaced left medial clavicular fracture. Healing, minimally displaced transverse fracture of the posterior right second rib. Healing comminuted, moderately displaced textures of the left first and second ribs. In the left posterior third rib. Healing nondisplaced fracture of the right T1 transverse process. CERVICAL SOFT TISSUES AND LUNG APICES: Clear lung apices. Normal thyroid gland. IMPRESSION: No significant change in size of right frontal and parietal subdural hematomas. No acute fracture of the cervical spine. Healing fractures of the right second rib, left first, second, and third ribs, and left clavicle. No significant change from prior examination. [facility] Alvares to Shine Staples D.O. on 09/15/2022 at 12:52 AM. I have personally reviewed the images and I agree with this report. WSN: [id number] Ordering Physician: Tommy De La Vega Dictated By: Tushar Alvares MD Dictated Date/Time: 09/15/22 6:58 am Reviewed By: Gerard Espinal MD Signed By: Gerard Espinal MD Signed Date/Time: 09/15/22 7:03 am Transcribed By: CSErika Transcribed Date/Time: 09/15/22 0:52 am Patient Care team information Care Team Personnel Name: Alexandra Colmenares RN Position: [facility] ED RN W/OE and Tasks Member Role: Primary Care Nurse Name: Garima Manzano RN Position: [facility] RN Member Role: Primary Care Nurse Name: Malgorzata Marinelli RN Position: [facility] RN Member Role: Primary Care Nurse Name: Joyce Roach RN Position: [facility] RN Member Role: Primary Care Nurse Name: Mary Suazo RN Position: [facility] RN Member Role: Primary Care Nurse Name: Andres Pressley RN Position: [facility] RN Member Role: Primary Care Nurse Name: Jany Baig DO Position: [facility] Primary Care Physician Member Role: PCP Address: Address: [address] [place] [address] Adult [facility] [place] [address]- Name: Neida Ballard RN Position: [facility] RN Member Role: Primary Care Nurse Name: Kaye Payne RN Position: [facility] RN Member Role: Primary Care Nurse Name: Garima Hutchinson Position: [facility] RN Member Role: Primary Care Nurse Name: Malgorzata Austin Position: S RN Member Role: Primary Care Nurse Name: Torrie Hernandez RN Position: [facility] OB RN Member Role: Primary Care Nurse Name: Gretchen Knutson RN Position: [facility] SN RN Member Role: Primary Care Nurse Name: Aislinn Mckee RN Position: S RN Member Role: Primary Care Nurse Name: Ashley Mcelroy Position: S RN Member Role: Primary Care Nurse Name: Cody Garcia Position: [facility] Associate Professional Member Role: Lifetime Consulting Provider Address: Address: [address] [place] [address]- [place] Name: Ge Covarrubias RN Position: [facility] RN Member Role: Primary Care Nurse Name: Orin Elmore RN Position: [facility] ED RN W/OE and Tasks Member Role: Primary Care Nurse Name: Allegra Liu RN Position: [facility] PCO RN Member Role: Primary Care Nurse Name: Shayan Pandya MD Position: [facility] Renal MD Member Role: Lifetime Consulting Physician Address: Address: [address] [facility], [place] [address]- [place] Name: Darlene Rodrigez RN Position: [facility] RN Member Role: Primary Care Nurse Name: Kwan Mills RN Position: [facility] RN Member Role: Primary Care Nurse Name: Dolores Can RN Position: [facility] RN Member Role: Primary Care Nurse Name: Kim Rendon RN Position: [facility] RN Member Role: Primary Care Nurse Name: Monica Rowell RN Position: [facility] RN Member Role: Primary Care Nurse Name: Bakari Cabrera MD Position: [facility] ED Medicine MD Member Role: ED Attending Physician Address: Address: [address] [place] [id number]- [place] Name: Hector Hedrick Position: [facility] ED TA [facility] Member Role: Geospatial Specialist Name: Shine Staples DO Position: [facility] Resident Member Role: ED Resident Address: Address: [address] [place] [address]- Name: Malathi Nash RN Position: [facility] ED RN W/OE and Tasks Member Role: Patient Care Provider Care Team Related Persons Name: MARLEN CABEZAS Address: home [address] [place] [address] Name: MARLEN CABEZAS Address: home [address], [place] Name: NICK CABEZAS Name: GEMA CABEZAS Address: home [address] [place] [address]
--- OUTSIDE RECORDS SUMMARY | 2023-12-15 20:53 | XMS_ITS | Continuity of Care Document ---
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 Refills 4, Maintenance, 10/06/19 16:18:00 EDT, [facility], 175, cm, 08/24/19 14:14:00EDT, Height, 81.2, kg, 02/04/19 1:40:00 EDT, Dry We... Start Date: 10/06/19 Stop Date: 03/04/20 Status: Ordered chantix 1mg tablet 1 tablet = 1 mg, By Mouth, 2 times a day, with a full glass of water, continue for total of 12 wks,# 56 tablet, 1 Refills, Maintenance, 10/06/19 15:54:00 EDT, Tablet, [facility], 175, cm, 08/24/19 14:14:00 EDT, Height, 81.2, kg, 02/04/19 1:40... Start Date: 10/06/19 Status: Ordered chantix 1mg tablet See Instructions, TAKE 1 TABLET BY MOUTH TWICE A DAY WITH A FULL GLASS OF WATER AND CONTINUE FOR A TOTAL OF 12 WEEKS, # 56 tablet, 0 Refills, Maintenance, 01/26/20 14:44:00 EDT, [facility], 175, cm, 08/24/19 14:14:00 EDT, Height, 81.2, kg, 08... Start Date: 01/26/20 Status: Ordered Co Q-10 100 mg oral [...] Refills, Maintenance, 11/02/19 9:02:00 EDT, Suspension, [facility]/pharmacy #[id number], 175, cm, 08/24/19 14:14:00 EDT, Height, 81.2, kg, 02/04/19 1:40:00 EDT, Dry Weight Start Date: 11/02/19 Status: Ordered fluticasone 50 mcg/inh nasal spray See Instructions, SPRAY 1 SPRAY INTO EACH NOSTRIL TWICE A DAY, # 16 Gm, 5 Refills, 01/26/20 9:52:00EDT, [facility], 30, SPRAY 1 SPRAY INTO EACH NOSTRIL TWICE A DAY, 175, cm, 08/24/19 14:14:00 EDT, Height, 81.2, kg, 02/04/19 1:40:00 EDT, Dry W... Start Date: 01/26/20 Status: Ordered gabapentin 600 mg oral tablet 1 tablet = 600 mg, By Mouth, 4 times a day, to replace prior script, # 120 tablet, 3 Refills, Maintenance, 01/26/20 14:28:00 EDT, Tablet, [facility], 175, cm, 08/24/19 14:14:00 EDT, Height, 81.2, kg, 02/04/19 1:40:00 EDT, Dry Weight Start Date: 01/26/20 Stop Date: 05/25/20 Status: Ordered hydrOXYzine hydrochloride 25 mg oral tablet 1 TO 2 TABLETS, By Mouth, 3 times a day, PRN NEEDED FOR ANXIETY, # 60 tablet, 2 Refills, Maintenance, 12/01/19 13:15:00 EDT, [facility], 175, cm, 08/24/19 14:14:00 [...] EDT, 12/01/19 16:37:00 EDT, Syrup, [facility], re sent from 10/04/17, 30... [...] tablet, 4 Refills, Maintenance,10/06/19 16:16:00 EDT, Tablet, [facility], 175, cm, 08/24/19 14:14:00 EDT, Height, 81.2, kg, 02/04/19 1:40:00 EDT, Dry Weight Start Date: 10/06/19 Status: Ordered mupirocin 2% topical ointment See Instructions, APPLY TOPICALLY THREE TIMES DAILY (APPLY A THIN FILM), # 22 Gm, 0 Refills, Acute,[facility], 8, APPLY TOPICALLY THREE TIMES DAILY (APPLY A THIN FILM), 175, cm, 08/24/19 14:14:00 EDT, Height, 81.2, kg, 02/04/19 1:40:00 EDT, D... Start Date: 10/30/19 Status: Ordered mupirocin 2% topical ointment See Instructions, APPLY TOPICALLY THREE TIMES DAILY (APPLY A THIN FILM), # 22 Gm, 0 Refills, Maintenance, 01/26/20 14:28:00 EDT, [facility], 8, APPLY TOPICALLY THREE TIMES [...] 1 Refills, Maintenance, 10/06/19 15:57:00 EDT, [facility], [facility], 175, cm, 08/24/19 14:14:00 EDT,Height, 81.2, kg, 02/04/19 1:40:00 EDT, Dry Weight Start Date: 10/06/19 Status: Ordered sertraline 50 mg oral tablet 1 tablet, By Mouth, Daily, TAKE ALONG WITH A 100MG TABLET to equal 150mg daily, # 90 tablet, 1 Refills, Maintenance, 10/06/19 15:57:00 EDT, [facility], 175, cm, 08/24/19 14:14:00 EDT, Height,81.2, kg, 02/04/19 1:40:00 EDT, Dry Weight Start Date: 10/06/19 Status: Ordered Tab-A-Jesse oral tablet 1 tablet, By Mouth, Daily, # 30 tablet, 11 Refills, Maintenance, 06/16/19 12:42:00 EST, [facility], 30, TAKE 1 TABLET BY [...] Details, Route to Pharmacy Electronically, [facility], 175, cm, 08/24/19 14:14:0... Start Date: 09/14/19 Status: Ordered Vitamin B1 100 mg oral tablet 1, tablet, By Mouth, Daily, # 90 tablet, Refills 3, Tot. Refills 3, Maintenance, 09/27/19 8:51:00 EDT, Route to Pharmacy Electronically, [facility], 175, cm, 08/24/19 14:14:00 EDT, Height, 81.2, kg, 02/04/19 1:40:00 EDT, Dry Weight Start Date: 09/27/19 Status: Ordered Xifaxan 550 mg oral tablet 1 tablet, By Mouth, 2 times a day, # 60 tablet, 0 Refills, Maintenance, 10/30/19 16:57:00 EDT, [facility], 175, cm, 08/24/19 14:14:00 EDT, Height, 81.2, kg, 02/04/19 1:40:00 EDT, Dry Weight Start Date: 10/30/19 Status: Ordered Xifaxan 550 mg oral tablet See Instructions, TAKE 1 TABLET BY MOUTH TWICE A DAY, # 60 tablet, 0 Refills, 01/26/20 14:26:00 EDT, [facility], 175, cm, 08/24/19 14:14:00 EDT, Height, 81.2, kg, 02/04/19 1:40:00 EDT, Dry Weight Start Date: 01/26/20 Status: Ordered Problem List Condition Effective Dates [...]
--- OUTSIDE RECORDS SUMMARY | 2023-12-15 20:53 | XMS_ITS | Continuity of Care Document ---
Author Organization 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 [address] [place] [address]- Allergies, Adverse Reactions, Alerts Substance Reaction Severity [...] Give n 1Result Comment: [facility]: [id number] 2Result Comment: [04/29/2017] [id number] 3Admin Note: FLUARIX 4Admin Note: 3 RDINJ 5Admin Note: #2 Medications acamprosate 333 mg oral delayed release tablet 1 tablet = 333 mg, By Mouth, 3 times a day, # 42 tablet, 4 Refills, Maintenance, 11/05/22 11:31:00 EDT, EC Tablet, [facility], Partial fill upon patient request if the prescription is for a schedule II opioid drug., 175, cm, 11/05/22 10:21:00... Start Date: 11/05/22 Stop Date: 01/14/23 Status: Ordered amLODIPine 5 mg oral tablet 1 tablet, By Mouth, Daily, ^1R1., # 30 tablet, 5 Refills, Maintenance, 12/22/22 7:20:00 EDT, [facility], 175, cm, 12/03/22 11:50:00 EDT, Height, 88.9, kg, 10/21/22 20:41:00 EDT, Dry Weight Start Date: 12/22/22 Status: Ordered baclofen 10 mg oral tablet See Instructions, TAKE ONE TABLET BY MOUTH THREE TIMES A DAY ^1R1,1R2,1R4, # 90 tablet, Refills 5, Tot. Refills 5, Maintenance, 01/14/23 17:55:00 EDT, Instructions Replace Required Details, Route to Pharmacy Electronically, [facility], 175, cm... Start Date: 01/14/23 Status: Ordered calcium (as carbonate)-vitamin D 500 mg-400 intl units oral tablet 1 tablet, By Mouth, Daily, ^1R1., # 28 tablet, 0 Refills, Maintenance, 12/01/22 16:12:00 EDT, [facility], 28, 1 tablet By Mouth Daily,Instr:^1R1., 175, [...] capsule, 6 Refills, Maintenance, 12/03/22 12:13:00 EDT, [facility], 175, cm, 12/03/22 11:50:00 EDT, Height, [...] Gm, 0 Refills, Maintenance, 02/26/23 10:12:00 EDT, [facility], 28, APPLY TOPICALLY TO AFFECTED AREA(S) [...] Gm, 11 Refills, Maintenance, 08/07/22 12:12:00 EST, [facility]/pharmacy #[id number], 30, USE 1 SPRAY(S) INTO EACH NOSTRIL TWICE A DAY, 176, cm,08/07/22 11:37:00 EST, Height, 79.8, kg, 07/31/22 2... Start Date: 08/07/22 Status: Ordered folic acid 1 mg oral tablet 1, tablet, By Mouth, Daily, R1., # 30 tablet, Refills 5, Tot. Refills 5, Maintenance, 10/06/22 4:59:00 EDT, Route to Pharmacy Electronically, [facility], 176, cm, 09/07/22 8:56:00 EDT, Height, 82.1, kg, 09/07/22 8:59:00 EDT, Dry Weight Start Date: 10/06/22 Status: Ordered furosemide 20 mg oral tablet 1, tablet, By Mouth, Daily, R1., # 30 tablet, Refills 5, Tot. Refills 5, Maintenance, 09/03/22 14:50:00 EDT, Route to Pharmacy Electronically, [facility], 169, cm, 09/03/22 14:21:00 EDT, Height, 69, kg, 08/16/22 1:04:00 EST, Dry Weight Start Date: 09/03/22 Status: Ordered furosemide 20 mg oral tablet 20 mg, 1, tablet, By Mouth, Every other day, # 30 tablet, Refills 3, Tot. Refills 3, Maintenance, 01/28/23 12:31:00 EDT, Route to Pharmacy Electronically, [facility], Partial fill upon patient request if the prescription is for a schedule II o... Start Date: 01/28/23 Status: Ordered gabapentin 300 mg oral capsule 300 mg, 1, capsule, By Mouth, Daily at bedtime, note dose/frequency change, # 90 capsule, Refills 4, Tot. Refills 4, Maintenance, 11/05/22 11:05:00 EDT, [facility], [facility], 175, cm, 11/05/22 10:21:00 EDT, Height, 88.9... Start Date: 11/05/22 Stop Date: 01/29/24 Status: Ordered hydrOXYzine hydrochloride 10 mg oral tablet 2 tablet, By Mouth, 2 times a day, PRN NEEDED FOR ANXIETY (VIAL), # 30 tablet, 3 Refills, Maintenance, 12/22/22 16:57:00 EDT, [facility], 175, cm, 12/03/22 11:50:00 EDT, Height, 88.9, kg, 10/21/22 20:41:00 EDT, Dry Weight Start Date: 12/22/22 Status: Ordered lactulose 10 gm/15 ml oral syrup 15 mL, By Mouth, 2 times a day, # 120 mL, 6 Refills, Maintenance, 02/26/23 10:11:00 EDT, [facility], 4, TAKE 15ML BY MOUTH TWO TIMES A DAY, 175, cm, 12/03/22 11:50:00 EDT, Height, 84, kg, 02/12/23 11:30:00 EDT, Dry Weight Start Date: 02/26/23 Status: Ordered Lidoderm 5% film 1 patch, Topically, Daily, remove patches after 12 hours NSAIDS contraindicated High dose tylenol contraindicated remove patches after 12 hours Nueropathy, # 30 patch, 5 Refills, Maintenance, 11/05/22 11:04:00 EDT, [facility], Partial klaudia... Start Date: 11/05/22 Status: Ordered magnesium oxide 400 mg oral tablet See Instructions, TAKE 1 TABLET BY MOUTH TWICE A DAY^1R1,1R4, # 60 tablet, 11 Refills, Maintenance,01/28/23 12:31:00 EDT, [facility], 175, cm, 12/03/22 11:50:00 EDT, Height, 88.9, kg, 10/21/22 20:41:00 EDT, Dry Weight Start Date: 01/28/23 Status: Ordered Melatonin 3 mg oral tablet 1 tablet, By Mouth, Daily at bedtime, PRN NEEDED FOR INSOMNIA (PACKAGE IN TRAY)^1R4, # 60 tablet, 5 Refills, Maintenance, 06/12/22 18:11:00 EST, [facility], 60, TAKE 1 TABLET [...] 02/26/23 10:11:00 EDT, Route to Pharmacy Electronically, [facility], 175, cm, 12/03/22 11:50:00 EDT, Height, [...] 11/05/22 11:31:00 EDT, Route to Pharmacy Electronically, [facility], Partial fill upon patient request if the prescription is for a schedule II opioid drug... Start Date: 11/05/22 Status: Ordered Tab-A-Jesse oral tablet 1 tablet, By Mouth, Daily, # 90 tablet, 1 Refills, 12/01/22 12:59:00 EDT, [facility], 28, 1tablet By Mouth Daily, 175, cm, 11/13/22 10:42:00 EDT, Height, 88.9, kg, 10/21/22 20:41:00 EDT, DryWeight Start Date: 12/01/22 Status: Ordered traZODone 50 mg oral tablet 2, tablet, By Mouth, Daily at bedtime, ^2R4., # 60 tablet, Refills 5, Maintenance, 02/26/23 10:11:00 EDT, Route to Pharmacy Electronically, [facility], 175, cm, 12/03/22 11:50:00 EDT, Height,84, [...] 02/09/23 23:18:00 EDT, Route to Pharmacy Electronically, [facility], 175, cm, 12/03/22 11:50:00 EDT, Height, 88.9, kg, 10/21/22 20:41:00 EDT, Dry Weight Start Date: 02/09/23 Status: Ordered Vitamin B6 50 mg oral tablet 1, tablet, By Mouth, Daily, R1., # 90 tablet, Refills 4, Maintenance, 11/16/22 13:39:00 EDT, Route to Pharmacy Electronically, [facility], 175, cm, 11/13/22 10:42:00 EDT, Height, [...] tablet, 3 Refills, Maintenance, 02/26/23 10:11:00 EDT, [facility], 175, cm, 12/03/22 11:50:00 EDT, Height, [...] Andres Pressley RN Position: [facility] ED RN W/OE and Tasks Member Role: Primary Care Nurse Name: Jany Baig DO Position: [facility] Physician - Primary Care Member Role: PCP Address: Address: [address] [place] [address] Adult [facility] [place] [address]- Name: Neida Ballard RN [facility]: [facility] Member Role: Lifetime Consulting Provider Address: Address: [address] [place] [address] Name: Ge Covarrubias RN Position: [facility] RN Member Role: Primary Care Nurse Name: Orin Elmore RN Position: [facility] ED RN W/OE and Tasks Member Role: Primary Care Nurse Name: Allegra Liu RN Position: [facility] AMB Nurse Member Role: Primary Care Nurse Name: Shayan Pandya MD Position: [facility] Renal MD Member Role: Lifetime Consulting Physician Address: Address: [address] [place] [address] [address] [facility] [place] [address]- Name: Darlene Rodrigez RN Position: [facility] [...] Team Related Persons Name: RAULITO MARLEN Address: [place] [address] Name: MARLEN CABEZAS Address: [place] [address] Name: NICK CABEZAS Name: GEMA CABEZAS Address: [place] [address]
--- OUTSIDE RECORDS SUMMARY | 2023-12-15 20:53 | XMS_ITS | Continuity of Care Document ---
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 Role Phone Jany Baig DO Primary Care Physician [facility]23 - 04/17/23 [facility] [address] [place] [address]- Allergies, Adverse Reactions, Alerts Substance Reaction Severity [...] 1Result Comment: [facility]: [id number] 2Result Comment: [04/29/2017] [id number] 3Admin Note: FLUARIX 4Admin Note: 3 RDINJ 5Admin Note: #2 Medications acamprosate 333 mg oral delayed release tablet 1 tablet = 333 mg, By Mouth, 3 times a day, # 42 tablet, 4 Refills, Maintenance, 11/05/22 11:31:00 EDT, EC Tablet, [facility], Partial fill upon patient request if the prescription is for a schedule II opioid drug., 175, cm, 11/05/22 10:21:00... Start Date: 11/05/22 Stop Date: 01/14/23 Status: Ordered amLODIPine 5 mg oral tablet 1 tablet, By Mouth, Daily, ^1R1., # 30 tablet, 5 Refills, Maintenance, 12/22/22 7:20:00 EDT, [facility], 175, cm, 12/03/22 11:50:00 EDT, Height, 88.9, kg, 10/21/22 20:41:00 EDT, Dry Weight Start Date: 12/22/22 Status: Ordered baclofen 10 mg oral tablet See Instructions, TAKE ONE TABLET BY MOUTH THREE TIMES A DAY ^1R1,1R2,1R4, # 90 tablet, Refills 5, Tot. Refills 5, Maintenance, 01/14/23 17:55:00 EDT, Instructions Replace Required Details, Route to Pharmacy Electronically, [facility], 175, cm... Start Date: 01/14/23 Status: Ordered calcium (as carbonate)-vitamin D 500 mg-400 intl units oral tablet 1 tablet, By Mouth, Daily, ^1R1., # 28 tablet, 0 Refills, Maintenance, 12/01/22 16:12:00 EDT, [facility], 28, 1 tablet By Mouth Daily,Instr:^1R1., [...] capsule, 6 Refills, Maintenance, 12/03/22 12:13:00 EDT, [facility], 175, cm, 12/03/22 11:50:00 EDT, Height, [...] Gm, 12 Refills, Maintenance, 03/24/23 10:52:00 EDT, [facility], 28, APPLY TOPICALLY TO AFFECTED AREA(S) [...] 05/03/23 12:01:00 EST, 03/22/23 12:01:00 EDT, Tablet, [facility]/pharmacy [...] Refills, Maintenance, 08/07/22 12:12:00 EST, [facility]/pharmacy #[id number], 30, USE 1 SPRAY(S) INTO EACH NOSTRIL TWICE A DAY, 176, cm,08/07/22 11:37:00 EST, Height, 79.8, kg, 07/31/22 2... Start Date: 08/07/22 Status: Ordered folic acid 1 mg oral tablet 1, tablet, By Mouth, Daily, ^1R1., # 30 tablet, Refills 5, Maintenance, 03/20/23 16:22:00 EDT, Route to Pharmacy Electronically, [facility], 175, cm, 03/20/23 15:31:00 EDT, Height, 77.5, kg, 03/20/23 11:30:00 EDT, Dry Weight Start Date: 03/20/23 Status: Ordered furosemide 20 mg oral tablet 20 mg, 1, tablet, By Mouth, Every other day, # 30 tablet, Refills 3, Tot. Refills 3, Maintenance, 01/28/23 12:31:00 EDT, Route to Pharmacy Electronically, [facility], Partial fill upon patient request if the prescription is for a schedule II o... Start Date: 01/28/23 Status: Ordered gabapentin 300 mg oral capsule 300 mg, 1, capsule, By Mouth, Daily at bedtime, note dose/frequency change, # 90 capsule, Refills 4, Tot. Refills 4, Maintenance, 11/05/22 11:05:00 EDT, Route to Pharmacy Electronically, [facility], 175, cm, 11/05/22 10:21:00 EDT, Height, 88.9... Start Date: 11/05/22 Stop Date: 01/29/24 Status: Ordered hydrOXYzine hydrochloride 10 mg oral tablet 2 tablet, By Mouth, 2 times a day, PRN NEEDED FOR ANXIETY (VIAL), # 30 tablet, 3 Refills, Maintenance, 04/16/23 16:41:00 EDT, [facility], 175, cm, 03/22/23 6:50:00 EDT, Height, 77.5, kg, 03/20/23 11:30:00 EDT, Dry Weight Start Date: 04/16/23 Status: Ordered lactulose 10 gm/15 ml oral syrup 15 mL, By Mouth, 2 times a day, # 120 mL, 6 Refills, Maintenance, 02/26/23 10:11:00 EDT, [facility], 4, TAKE 15ML BY MOUTH TWO TIMES A DAY, 175, cm, 12/03/22 11:50:00 EDT, Height, 84, kg, 02/12/23 11:30:00 EDT, Dry Weight Start Date: 02/26/23 Status: Ordered magnesium oxide 400 mg oral tablet See Instructions, TAKE 1 TABLET BY MOUTH TWICE A DAY^1R1,1R4, # 60 tablet, 11 Refills, Maintenance,01/28/23 12:31:00 EDT, [facility], 175, cm, 12/03/22 11:50:00 EDT, Height, 88.9, kg, 10/21/22 20:41:00 EDT, Dry Weight Start Date: 01/28/23 Status: Ordered Melatonin 3 mg oral tablet 1 tablet, By Mouth, Daily at bedtime, PRN NEEDED FOR INSOMNIA (PACKAGE IN TRAY)^1R4, # 60 tablet, 5 Refills, Maintenance, 04/16/23 16:41:00 EDT, [facility], 60, TAKE [...] 02/26/23 10:11:00 EDT, Route to Pharmacy Electronically, [facility], 175, cm, 12/03/22 11:50:00 [...] 05/03/23 12:02:00 EST, 03/22/23 12:02:00 EDT, Capsule, [facility]/pharmacy #[id number], Partial fill upon patient request if the prescription is for a schedule II opioid drug., 175, c... Start Date: 03/22/23 Stop Date: 05/03/23 Status: Ordered spironolactone 25 mg oral tablet 1, tablet, By Mouth, Daily, ^1R2., # 30 tablet, Refills 5, Tot. Refills 5, Maintenance, 04/14/23 12:41:00 EDT, Route to Pharmacy Electronically, [facility], 175, cm, 03/22/23 6:50:00 EDT, Height, 77.5, kg, 03/20/23 11:30:00 EDT, Dry Weight Start Date: 04/14/23 Status: Ordered Tab-A-Jesse oral tablet 1 tablet, By Mouth, Daily, # 90 tablet, 1 Refills, 12/01/22 12:59:00 EDT, [facility], 28, 1tablet By Mouth Daily, 175, cm, 11/13/22 10:42:00 EDT, Height, 88.9, kg, 10/21/22 20:41:00 EDT, DryWeight Start Date: 12/01/22 Status: Ordered traZODone 50 mg oral tablet 2, tablet, By Mouth, Daily at bedtime, ^2R4., # 60 tablet, Refills 5, Maintenance, 02/26/23 10:11:00 EDT, Route to Pharmacy Electronically, [facility], 175, cm, 12/03/22 11:50:00 EDT, Height,84, [...] 02/09/23 23:18:00 EDT, Route to Pharmacy Electronically, [facility], 175, cm, 12/03/22 11:50:00 EDT, Height, 88.9, kg, 10/21/22 20:41:00 EDT, Dry Weight Start Date: 02/09/23 Status: Ordered Vitamin B6 50 mg oral tablet 1, tablet, By Mouth, Daily, R1., # 90 tablet, Refills 4, Maintenance, 11/16/22 13:39:00 EDT, Route to Pharmacy Electronically, [facility], 175, cm, 11/13/22 10:42:00 [...] tablet, 3 Refills, Maintenance, 02/26/23 10:11:00 EDT, [facility], 175, cm, 12/03/22 11:50:00 [...] Pressley RN Position: [facility] ED RN W/OE and Tasks Member Role: Primary Care Nurse Name: Jany Baig DO Position: [facility] Physician - Primary Care Member Role: PCP Address: Address: [address] [place] [address] Adult & [place] [address]- Name: Kaye Payne RN [facility]: [facility] RN Member Role: Primary Care Nurse Name: sAhley Mcelroy Position: [facility] RN Member Role: Primary Care Nurse Name: Ashok Kevin RN Position: [facility] RN Member Role: Primary Care Nurse Name: Cody Garcia Position: [facility] Associate Professional Member Role: Lifetime Consulting Provider Address: Address: [address] [place] [address]- Name: Paige Nascimento RN Position: [facility] RN Member Role: Primary Care Nurse Name: Ge Covarrubias RN [facility]: [facility] [...] Role: Lifetime Consulting Physician Address: Address: [address] [place] [address] [address] [facility] [place] [address]- Name: Darlene Rodrigez RN Position: [facility] RN Member Role: Primary Care Nurse Name: Dolores Can RN Position: [facility] RN Member Role: Primary Care Nurse Name: Ingrid Verdugo RN Position: [facility] RN Member Role: Primary Care Nurse Name: Monica Rowell RN Position: [facility] RN Member Role: Primary Care Nurse Name: Jimi Fitzpatrick RN Position: [facility] RN Member Role: Primary Care Nurse Care Team Related Persons Name: MARLEN CABEZAS Address: home [address] [place] [id number] Name: MARLEN CABEZAS Address: home [address] [place] [id number] Name: NICK CABEZAS Name: GEMA CABEZAS Address: home [address] [place] [id number]
--- OUTSIDE RECORDS SUMMARY | 2023-12-15 20:53 | XMS_ITS | Continuity of Care Document ---
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 Role Phone Jany Baig DO Primary Care Physician [place] [facility] [place]): [place]12[place]22 - 11/11/22 [facility] [address] [place] [address] Drive, [address] [place] [address]- Attending Physician: Venice Salmon Admitting Physician: Venice Salmon Referring Physician: AdmtrVenice Allergies, Adverse Reactions, Alerts Substance Reaction Severity [...] acel (oldterm) 08/02/12 Give n 1Result Comment: [facility]: [id number] 2Result Comment: [04/29/2017] [id number] 3Admin Note: FLUARIX 4Admin Note: 3 RDINJ 5Admin Note: #2 Medications acamprosate 333 mg oral delayed release tablet 1 tablet = 333 mg, By Mouth, 3 times a day, # 42 tablet, 4 Refills, Maintenance, 11/05/22 11:31:00 EDT, [facility], Partial fill upon patient request if the prescription is for a schedule II opioid drug., 175, cm, 11/05/22 10:21:00... Start Date: 11/05/22 Stop Date: 01/14/23 Status: Ordered amLODIPine 5 mg oral tablet 1 tablet, By Mouth, Daily, ^1R1., # 30 tablet, 2 Refills, Maintenance, 10/06/22 4:58:00 EDT, [facility], 176, cm, 09/07/22 8:56:00 EDT, Height, 82.1, kg, 09/07/22 8:59:00 EDT, Dry Weight Start Date: 10/06/22 Status: Ordered baclofen 10 mg oral tablet See Instructions, TAKE 1 TABLET BY MOUTH THREE TIMES DAILY, # 90 tablet, Refills 0, Maintenance, 08/07/22 12:26:00 EST, Instructions Replace Required Details, Route to Pharmacy Electronically, [facility], 176, cm, 08/07/22 11:37:00 EST, Height... Start Date: 08/07/22 Status: Ordered calcium (as carbonate)-vitamin D 500 mg-400 intl units oral tablet 1 tablet, By Mouth, Daily, ^1R1., # 28 tablet, 0 Refills, Maintenance, 10/08/22 16:58:00 EDT, [facility], 28, TAKE ONE TABLET BY [...] capsule, 6 Refills, Maintenance, 08/07/22 12:13:00 EST, [facility], 176, cm, 08/07/22 11:37:00 [...] 11 Refills, Maintenance, 08/07/22 12:12:00 EST, [facility]/pharmacy #[id number], 30, USE 1 SPRAY(S) INTO EACH NOSTRIL TWICE A DAY, 176, cm,08/07/22 11:37:00 EST, Height, 79.8, kg, 07/31/22 2... Start Date: 08/07/22 Status: Ordered folic acid 1 mg oral tablet 1, tablet, By Mouth, Daily, R1., # 30 tablet, Refills 5, Tot. Refills 5, Maintenance, 10/06/22 4:59:00 EDT, Route to Pharmacy Electronically, [facility], 176, cm, 09/07/22 8:56:00 EDT, Height, 82.1, [...] 09/03/22 14:50:00 EDT, [facility], 169, cm, 09/03/22 14:21:00 EDT, Height, 69, kg, 08/16/22 1:04:00 EST, Dry Weight Start Date: 09/03/22 Status: Ordered gabapentin 300 mg oral capsule 300 mg, 1, capsule, By Mouth, Daily at bedtime, note dose/frequency change, # 90 capsule, Refills 4, Tot. Refills 4, Maintenance, 11/05/22 11:05:00 EDT, [facility], 175, cm, 11/05/22 10:21:00 EDT, Height, 88.9... Start Date: 11/05/22 Stop Date: 01/29/24 Status: Ordered hydrOXYzine hydrochloride 10 mg oral tablet 2 tablet, By Mouth, 2 times a day, PRN NEEDED FOR ANXIETY (VIAL), # 30 tablet, 3 Refills, Maintenance, 09/24/22 17:01:00 EDT, [facility], 176, cm, 09/07/22 8:56:00 EDT, Height, 82.1, kg, 09/07/22 8:59:00 EDT, Dry Weight Start Date: 09/24/22 Status: Ordered lactulose 10 gm/15 ml oral syrup 15 mL, By Mouth, 2 times a day, # 120 mL, 6 Refills, Maintenance, 09/22/22 12:15:00 EDT, [facility], 4, TAKE 15ML BY MOUTH TWO TIMES A DAY, 176, cm, 09/07/22 8:56:00 EDT, Height, 82.1, kg, 09/07/22 8:59:00 EDT, Dry Weight Start Date: 09/22/22 Status: Ordered Lidoderm 5% film 1 patch, Topically, Daily, remove patches after 12 hours NSAIDS contraindicated High dose tylenol contraindicated remove patches after 12 hours Nueropathy, # 30 patch, 5 Refills, Maintenance, 11/05/22 11:04:00 EDT, [facility], Partial klaudia... Start Date: 11/05/22 Status: Ordered Melatonin 3 mg oral tablet 1 tablet, By Mouth, Daily at bedtime, PRN NEEDED FOR INSOMNIA (PACKAGE IN TRAY)^1R4, # 60 tablet, 5 Refills, Maintenance, 06/12/22 18:11:00 EST, [facility], 60, TAKE 1 TABLET [...] 09/03/22 14:53:00 EDT, Route to Pharmacy Electronically, [facility], Partial fill upon patient request if the prescription is for a schedule II opioid drug... Start Date: 09/03/22 Stop Date: 03/02/23 Status: Ordered pyridoxine 50 mg oral tablet 50 mg, 1, tablet, By Mouth, Daily, for 90 days, # 90 tablet, Refills 4, Tot. Refills 4, Acute 01/15/23 11:42:00 EDT, 10/22/21 11:42:00 EDT, Route to Pharmacy Electronically, [facility], Partial fill upon patient request if [...] 11/05/22 11:31:00 EDT, [facility] to Pharm[facility] Electronically, [facility], Partial fill upon patient request if the prescription is for a schedule II opioid drug... Start Date: 11/05/22 Status: Ordered Tab-A-Jesse oral tablet 1 tablet, By Mouth, Daily, # 90 tablet, 9 Refills, 08/07/22 12:27:00 EST, [facility]/pharmacy #[id number], 28, 1tablet By Mouth Daily, 176, cm, 08/07/22 11:37:00 EST, Height, 79.8, kg, 07/31/22 22:40:00 EST, DryWeight Start Date: 08/07/22 Status: Ordered traZODone 50 mg oral tablet 2 tablets, By Mouth, Daily at bedtime, # 60 each, Refills 5, Tot. Refills 5, Maintenance, 09/03/22 17:13:00 EDT, Route to Pharmacy Electronically, [facility], 169, cm, 09/03/22 14:21:00 EDT, Height, [...] 03/13/22 8:37:00 EDT, [facility]ically, [facility], 175, cm, 01/06/22 10:34:00 EDT, Height, [...] tablet, 3 Refills, Maintenance, 10/01/22 15:19:00 EDT, [facility], 176, cm, 09/07/22 8:56:00 EDT, Height, [...] Care Member Role: PCP Address: Address: [address] [place] [address] Adult [place] [address]- Name: Neida Ballard RN Position: [facility] [...] Primary Care Nurse Name: Ashley Mcelroy Position: [facility] RN Member Role: Primary Care Nurse Name: Cody Garcia Position: [facility] Associate Professional Member Role: Lifetime Consulting Provider Address: Address: [address] [place] [address]- Name: Ge Covarrubias RN Position: [facility] [...] Role: Lifetime Consulting Physician Address: Address: [address] [place] [address] [address] [facility] [place] [address]- Name: Darlene Rodrigez RN Position: [facility] RN Member Role: Primary Care Nurse Name: Kwan Mills RN Position: [facility] RN Member Role: Primary Care Nurse Name: Dolores Can RN Position: [facility] RN Member Role: Primary Care Nurse Name: Kim Rendon RN Position: [facility] RN Member Role: Primary Care Nurse Name: Monica Rowell RN Position: [facility] RN Member Role: Primary Care Nurse Name: Jimi Fitzpatrick RN Position: S RN Member Role: Primary Care Nurse Care Team Related Persons Name: MARLEN CABEZAS Address: [place] [address] Name: MARLEN CABEZAS Address: [place] [address] Name: NICK CABEZAS Name: GEMA CABEZAS Address: [place] [address]
--- OUTSIDE RECORDS SUMMARY | 2023-12-15 20:53 | XMS_ITS | Continuity of Care Document ---
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 Name Role Phone Jany Baig DO Primary Care Physician ( [phone] Encounter [facility] Date(s): 09/12/22 - 10/12/[address] [address]- Allergies, Adverse Reactions, Alerts Substance Reaction Severity [...] [facility]: [id number] 2Result Comment: [04/29/2017] [id number] 3Admin Note: FLUARIX 4Admin Note: 3 RDINJ 5Admin Note: #2 Medications acamprosate 333 mg oral delayed release tablet 1 tablet = 333 mg, By Mouth, 3 times a day, # 90 tablet, 4 Refills, Maintenance, 09/03/22 14:59:00 EDT, EC Tablet, [facility], Partial fill upon patient request if the prescription is for a schedule II opioid drug., 169, cm, 09/03/22 14:21:00... Start Date: 09/03/22 Status: Ordered amLODIPine 5 mg oral tablet 1 tablet, By Mouth, Daily, ^1R1., # 30 tablet, 2 Refills, Maintenance, 10/06/22 4:58:00 EDT, [facility], 176, cm, 09/07/22 8:56:00 EDT, Height, 82.1, kg, 09/07/22 8:59:00 EDT, Dry Weight Start Date: 10/06/22 Status: Ordered baclofen 10 mg oral tablet See Instructions, TAKE 1 TABLET BY MOUTH THREE TIMES DAILY, # 90 tablet, Refills 0, Maintenance, 08/07/22 12:26:00 EST, Instructions Replace Required Details, Route to Pharmacy Electronically, [facility], 176, cm, 08/07/22 11:37:00 EST, Height... Start Date: 08/07/22 Status: Ordered calcium (as carbonate)-vitamin D 500 mg-400 intl units oral tablet 1 tablet, By Mouth, Daily, ^1R1., # 28 tablet, 0 Refills, Maintenance, 10/08/22 16:58:00 EDT, [facility], 28, TAKE ONE TABLET BY MOUTH EVERY DAY ^1R1, 176, cm, 09/07/22 8:56:00 EDT, Height, 82.1, kg, 09/07/22 8:59:00 EDT, Dry Weight Start Date: 10/08/22 Status: Ordered Co Q-10 100 mg oral capsule See Instructions, TAKE 1 CAPSULE BY MOUTH FOUR TIMES DAILY, # 120 capsule, 6 Refills, Maintenance, 08/07/22 12:13:00 EST, [facility], 176, cm, 08/07/22 11:37:00 [...] 08/07/22 12:12:00 EST, [facility]/pharmacy #[id number], 30, USE 1 SPRAY(S) INTO EACH NOSTRIL TWICE A DAY, 176, cm,08/07/22 11:37:00 EST, Height, 79.8, kg, 07/31/22 2... Start Date: 08/07/22 Status: Ordered folic acid 1 mg oral tablet 1, tablet, By Mouth, Daily, R1., # 30 tablet, Refills 5, Tot. Refills 5, Maintenance, 10/06/22 4:59:00 EDT, [facility], 176, cm, 09/07/22 8:56:00 EDT, Height, 82.1, kg, 09/07/22 8:59:00 EDT, Dry Weight Start Date: 10/06/22 Status: Ordered furosemide 20 mg oral tablet 1, tablet, By Mouth, Daily, R1., # 30 tablet, Refills 5, Tot. Refills 5, Maintenance, 09/03/22 14:50:00 EDT, [facility], 169, cm, 09/03/22 14:21:00 EDT, Height, 69, kg, 08/16/22 1:04:00 EST, Dry Weight Start Date: 09/03/22 Status: Ordered gabapentin 300 mg oral capsule 300 mg, 1, capsule, By Mouth, 2 times a day, note dose/frequency change, # 180 capsule, Refills 4, Tot. Refills 4, Maintenance, 09/03/22 14:55:00 EDT, [facility], 169, cm, 09/03/22 14:21:00 EDT, Height, 69, kg... Start Date: 09/03/22 Stop Date: 11/27/23 Status: Ordered hydrOXYzine hydrochloride 10 mg oral tablet 2 tablet, By Mouth, 2 times a day, PRN NEEDED FOR ANXIETY (VIAL), # 30 tablet, 3 Refills, Maintenance, 09/24/22 17:01:00 EDT, [facility], 176, cm, 09/07/22 8:56:00 EDT, Height, 82.1, kg, 09/07/22 8:59:00 EDT, Dry Weight Start Date: 09/24/22 Status: Ordered lactulose 10 gm/15 ml oral syrup 15 mL, By Mouth, 2 times a day, # 120 mL, 6 Refills, Maintenance, 09/22/22 12:15:00 EDT, [facility], 4, TAKE 15ML BY MOUTH TWO TIMES A DAY, 176, cm, 09/07/22 8:56:00 EDT, Height, 82.1, kg, 09/07/22 8:59:00 EDT, Dry Weight Start Date: 09/22/22 Status: Ordered Lidoderm 5% film 1 patch, Topically, Daily, remove patches after 12 hours NSAIDS contraindicated High dose tylenol contraindicated remove patches after 12 hours Nueropathy, # 30 patch, 5 Refills, Maintenance, 09/03/22 16:34:00 EDT, [facility], Partial klaudia... Start Date: 09/03/22 Status: Ordered magnesium oxide 400 mg oral tablet 1 tablet, By Mouth, 2 times a day, # 60 tablet, 11 Refills, Maintenance, 03/13/22 8:37:00 EDT, [facility], 175, cm, 01/06/22 10:34:00 EDT, Height, 78.3, kg, 12/26/21 19:05:00 EDT, Dry Weight Start Date: 03/13/22 Status: Ordered Melatonin 3 mg oral tablet 1 tablet, By Mouth, Daily at bedtime, PRN NEEDED FOR INSOMNIA (PACKAGE IN TRAY)^1R4, # 60 tablet, 5 Refills, Maintenance, 06/12/22 18:11:00 EST, [facility], 60, TAKE 1 TABLET [...] 14:53:00 EDT, [facility], Partial fill upon patient request if the prescription is for a schedule II opioid drug... Start Date: 09/03/22 Stop Date: 03/02/23 Status: Ordered PHENobarbital 30 mg oral tablet See Instructions, Taper 09/08-Day 1 -90mg Daily Day 2-3-60mg BID Day 4-5 30mg BID, # 15 tablet, 0 Refills, Maintenance, 09/08/22 15:05:00 EDT, [facility], Partial fill upon patient request if the prescription is for a schedule II op... Start Date: 09/08/22 Status: Ordered pyridoxine 50 mg oral tablet 50 mg, 1, tablet, By Mouth, Daily, for 90 days, # 90 tablet, Refills 4, Tot. Refills 4, Acute 01/15/23 11:42:00 EDT, 10/22/21 11:42:00 EDT, Route to Pharmacy Electronically, [facility], Partial fill upon patient request if [...] 09/03/22 17:13:00 EDT, Route to Pharmacy Electronically, [facility], 169, cm, 09/03/22 14:21:00 EDT, Height, 69, kg, 08/16/22 1:04:00 EST, Dry Weight Start Date: 09/03/22 Status: Ordered Vitamin B1 100 mg oral tablet 1, tablet, By Mouth, Daily, # 90 tablet, Refills 3, Maintenance, 03/13/22 8:37:00 EDT, Route to Pharmacy Electronically, [facility], 175, cm, 01/06/22 10:34:00 EDT, Height, 78.3, kg, 12/26/2218:05:00 EDT, Dry Weight Start Date: 03/13/22 Status: Ordered Xifaxan 550 mg oral tablet 1 tablet, By Mouth, 2 times a day, ^1R1,1R4., # 60 tablet, 3 Refills, Maintenance, 10/01/22 15:19:00 EDT, [facility], 176, cm, 09/07/22 8:56:00 EDT, Height, [...] Care Physician Member Role: PCP Address: Address: [address] [place] [address] Adult & Pediatric Medicine [address] Name: Neida Ballard RN Position: [facility] RN Member Role: Primary Care Nurse Name: Kaye Payne RN Position: [facility] RN Member Role: Primary Care Nurse Name: Garima Hutchinson Position: [facility] RN Member Role: Primary Care Nurse Name: Malgorzata Austin Position: [facility] RN Member Role: Primary Care Nurse Name: Torrie Hernandez RN Position: [facility] OB RN Member Role: Primary Care Nurse Name: Gretchen Knutson RN Position: [facility] SN RN Member Role: Primary Care Nurse Name: Aislinn Mckee RN Position: [facility] RN Member Role: Primary Care Nurse Name: Ashley Mcelroy Position: [facility] RN Member Role: Primary Care Nurse Name: Cody Garcia Position: [facility] Associate Professional Member Role: Lifetime Consulting Provider Address: Address: [address] [place] [address]- Name: Ge Covarrubias RN [facility] [...] Role: Lifetime Consulting Physician Address: Address: [address] [place] [address] [address] [facility] [place] [address]- Name: Darlene Rodrigez RN Position: S RN [...] Related Persons Name: MARLEN CABEZAS Address: home [address] [place] [address] Name: MARLEN CABEZAS Address: [address] [place] [address] Name: NICK CABEZAS Name: GEMA CABEZAS Address: home [address] [place] [address]
--- OUTSIDE RECORDS SUMMARY | 2023-12-15 20:53 | XMS_ITS | Continuity of Care Document ---
Author Organization 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 [address] [place] [address]- Allergies, Adverse Reactions, Alerts Substance Reaction Severity [...] (oldterm) 08/02/12 Give n 1Result Comment: [04/29/2017] [id number] 2Admin Note: FLUARIX 3Admin Note: 3 RDINJ 4Admin Note: #2 Medications baclofen 10 mg oral tablet 1, tablet, By Mouth, 3 times a day, # 90 tablet, Refills 0, Route to Pharmacy Electronically, [facility], 174, cm, 02/27/21 15:17:00 EDT, Height, 81, kg, 02/27/21 14:06:00 EDT, Dry Weight Start Date: 07/08/21 Status: Ordered chantix 1mg tablet 1 tablet, By Mouth, 2 times a day, # 56 tablet, 0 Refills, Acute, 11/22/20 16:13:00 EDT, [facility], 178, cm, 11/12/20 15:32:00 EDT, Height, 84.9, kg, 08/31/20 1:07:00 EDT, Dry Weight Start Date: 11/22/20 Status: Ordered Co Q-10 100 mg oral capsule 1 capsule, By Mouth, 4 times a day, # 120 capsule, 6 Refills, [facility], 174, cm, 02/27/2115:17:00 EDT, Height, 81, kg, 02/27/21 14:06:00 EDT, Dry Weight Start Date: 07/08/21 Status: Ordered fluticasone 50 mcg/inh nasal spray See Instructions, USE 1 SPRAY INTO EACH NOSTRIL TWICE A DAY, # 16 Gm, 5 Refills, Maintenance, [facility], 30, USE 1 SPRAY INTO EACH NOSTRIL TWICE A DAY, 178, cm, 01/07/21 17:59:00 EDT, Height, 81.4, kg, 12/03/20 13:52:00 EDT, Dry Weight Start Date: 01/17/21 Status: Ordered gabapentin 600 mg oral tablet 1 tablet, By Mouth, 4 times a day, # 120 tablet, 0 Refills, [facility], 174, cm, 02/27/21 15:17:00 EDT, Height, 81, kg, 02/27/21 14:06:00 EDT, Dry Weight Start Date: 07/08/21 Status: Ordered hydrOXYzine hydrochloride 25 mg oral tablet 1 TO 2 TABLETS, By Mouth, 3 times a day, PRN NEEDED FOR ANXIETY (VIAL), # 60 tablet, 0 Refills, [facility], 174, cm, 02/27/21 15:17:00 EDT, Height, 81, kg, 02/27/21 14:06:00 EDT, Dry Weight Start Date: 07/08/21 Status: Ordered lactulose 10 gm/15 ml oral syrup See Instructions, TAKE 30ML BY MOUTH THREE TIMES DAILY NEEDED TO ACHEIVE 3-4 BOWL MOVEMENTS PER DAY, # 3,000 mL, 10 Refills, [facility], 30, TAKE 30ML BY MOUTH THREE TIMES DAILY NEEDED TO ACHEIVE 3-4 BOWL MOVEMENTS PER DAY, 174, cm, 02/12... Start Date: 07/02/21 Status: Ordered Melatonin 3 mg oral tablet 1 tablet, By Mouth, Daily at bedtime, PRN NEEDED FOR INSOMNIA (PACKAGE IN TRAY), # 60 tablet, 5 Refills, Maintenance, 06/02/21 16:17:00 EST, [facility], 28, 1 tablet By Mouth Daily [...] 1 Refills, Maintenance, 10/06/19 15:57:00 EDT, Tablet, [facility], 175, cm, 08/24/19 14:14:00 EDT,Height, 81.2, kg, 02/04/19 1:40:00 EDT, Dry Weight Start Date: 10/06/19 Status: Ordered sertraline 50 mg oral tablet 1 tablet, By Mouth, Daily, TAKE ALONG WITH A 100MG TABLET to equal 150mg daily, # 90 tablet, 1 Refills, Maintenance, 10/06/19 15:57:00 EDT, [facility], 175, cm, 08/24/19 14:14:00 EDT, Height,81.2, kg, 02/04/19 1:40:00 EDT, Dry Weight Start Date: 10/06/19 Status: Ordered sildenafil 50 mg oral tablet 1 tablet = 50 mg, By Mouth, Daily, PRN erectile dysfunction, 1 hour before sexual activity, # 6 tablet, 5 Refills, Maintenance, 03/11/20 14:37:00 EDT, Tablet, [facility]/pharmacy #[id number], 175, cm, 08/24/19 14:14:00 EDT, Height, 81.2, kg, 02/04/19 1:40:00 EDT,... Start Date: 03/11/20 Status: Ordered Tab-A-Jesse oral tablet 1 tablet, By Mouth, Daily, # 90 tablet, 9 Refills, [facility], 28, TAKE 1 TABLET BY MOUTH ONCE A DAY, 174, cm, 07/14/21 8:16:00 EST, Height, 81, kg, 02/27/21 14:06:00 EDT, Dry Weight Start Date: 07/22/21 Status: Ordered tranexamic acid 650 mg oral tablet 1 tablet = 650 mg, By Mouth, Daily, # 21 tablet, 0 Refills, Maintenance, 10/22/20 17:52:00 EDT, Tablet, [facility]/pharmacy #[id number], Partial fill upon patient request if the prescription is for a schedule II opioid drug., 178, cm, 10/22/20 13:17:00 EDT, Height... Start Date: 10/22/20 Status: Ordered traZODone 50 mg oral tablet See Instructions, TAKE 1 TO 2 TABLETS BY MOUTH AT BEDTIME (ONE DOSE IN VIAL), # 60 tablet, Refills 0, Instructions Replace Required Details, Route to Pharmacy Electronically, [facility], 174,cm, 02/27/21 15:17:00 EDT, Height, 81, kg, 02/27/21... Start Date: 07/10/21 Status: Ordered traZODone 50 mg oral tablet See Instructions, TAKE 1 TO 2 TABLETS BY MOUTH AT BEDTIME (ONE DOSE IN VIAL), # 60 tablet, Refills 5, Instructions Replace Required Details, Route to Pharmacy Electronically, [facility], 174,cm, 02/11/21 12:09:00 EDT, Height, 86.6, kg, ... Start Date: 02/15/21 Status: Ordered Vitamin B1 100 mg oral tablet 1, tablet, By Mouth, Daily, # 90 tablet, Refills 1, Route to Pharmacy Electronically, [facility], 174, cm, 02/27/21 15:17:00 EDT, Height, 81, kg, 02/27/21 14:06:00 EDT, Dry Weight Start Date: 06/16/21 Status: Ordered Xifaxan 550 mg oral tablet 1 tablet, By Mouth, 2 times a day, # 60 tablet, 0 Refills, Maintenance, 04/16/20 14:45:00 EST, [facility]/pharmacy #[id number], 175, cm, 04/02/20 0:35:00 EDT, Height, [...]
--- OUTSIDE RECORDS SUMMARY | 2023-12-15 20:54 | XMS_ITS | Continuity of Care Document ---
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: [id number] 2Result Comment: [04/29/2017] [id number] 3Admin Note: FLUARIX 4Admin Note: 3 RDINJ 5Admin Note: #2 Medications acamprosate 333 mg oral delayed release tablet 1 tablet = 333 mg, By Mouth, 3 times a day, # 42 tablet, 4 Refills, Maintenance, 11/05/22 11:31:00 EDT, EC Tablet, [facility], Partial fill upon patient request if the prescription is for a schedule II opioid drug., 175, cm, 11/05/22 10:21:00... Start Date: 11/05/22 Stop Date: 01/14/23 Status: Ordered amLODIPine 5 mg oral tablet 1 tablet, By Mouth, Daily, ^1R1., # 30 tablet, 5 Refills, Maintenance, 12/22/22 7:20:00 EDT, [facility], 175, cm, 12/03/22 11:50:00 EDT, Height, 88.9, kg, 10/21/22 20:41:00 EDT, Dry Weight Start Date: 12/22/22 Status: Ordered amLODIPine 5 mg oral tablet 5 mg, Tablet, By Mouth, 03/22/23 9:00:00 EDT Start Date: 03/22/23 Stop Date: 03/22/23 Status: Completed baclofen 10 mg oral tablet See Instructions, TAKE ONE TABLET BY MOUTH THREE TIMES A DAY ^1R1,1R2,1R4, # 90 tablet, Refills 5, Tot. Refills 5, Maintenance, 01/14/23 17:55:00 EDT, Instructions Replace Required Details, Route to Pharmacy Electronically, [facility], 175, cm... Start Date: 01/14/23 Status: Ordered calcium (as carbonate)-vitamin D 500 mg-400 intl units oral tablet 1 tablet, By Mouth, Daily, ^1R1., # 28 tablet, 0 Refills, Maintenance, 12/01/22 16:12:00 EDT, [facility], 28, 1 tablet By Mouth Daily,Instr:^1R1., 175, cm, 11/13/22 10:42:00 EDT, Height, 88.9, kg, 10/21/22 20:41:00 EDT, Dry Weight Start Date: 12/01/22 Status: Ordered Co Q-10 100 mg oral capsule See Instructions, TAKE 1 CAPSULE BY MOUTH FOUR TIMES DAILY, # 120 capsule, 6 Refills, Maintenance, 12/03/22 12:13:00 EDT, [facility], 175, cm, 12/03/22 11:50:00 EDT, [...] Gm, 0 Refills, Maintenance, 02/26/23 10:12:00 EDT, [facility], 28, APPLY TOPICALLY TO AFFECTED [...] 05/03/23 12:01:00 EST, 03/22/23 12:01:00 EDT, Tablet, [facility]/pharmacy #[id number], Partial fill upon patient request [...] 11 Refills, Maintenance, 08/07/22 12:12:00 EST, [facility]/pharmacy #[id number], 30, USE 1 SPRAY(S) INTO EACH NOSTRIL TWICE A DAY, 176, cm,08/07/22 11:37:00 EST, Height, 79.8, kg, 07/31/22 2... Start Date: 08/07/22 Status: Ordered folic acid 1 mg oral tablet 1, tablet, By Mouth, Daily, ^1R1., # 30 tablet, Refills 5, Maintenance, 03/20/23 16:22:00 EDT, Route to Pharmacy Electronically, [facility], 175, cm, 03/20/23 15:31:00 EDT, Height, 77.5, kg, 03/20/23 11:30:00 EDT, Dry Weight Start Date: 03/20/23 Status: Ordered furosemide 20 mg oral tablet 20 mg, 1, tablet, By Mouth, Every other day, # 30 tablet, Refills 3, Tot. Refills 3, Maintenance, 01/28/23 12:31:00 EDT, Route to Pharmacy Electronically, [facility], Partial fill upon patient request if the prescription is for a schedule II o... Start Date: 01/28/23 Status: Ordered gabapentin 300 mg oral capsule 300 mg, 1, capsule, By Mouth, Daily at bedtime, note dose/frequency change, # 90 capsule, Refills 4, Tot. Refills 4, Maintenance, 11/05/22 11:05:00 EDT, Route to Pharmacy Electronically, [facility], 175, cm, 11/05/22 10:21:00 EDT, Height, 88.9... Start Date: 11/05/22 Stop Date: 01/29/24 Status: Ordered hydrOXYzine hydrochloride 10 mg oral tablet 2 tablet, By Mouth, 2 times a day, PRN NEEDED FOR ANXIETY (VIAL), # 30 tablet, 3 Refills, Maintenance, 12/22/22 16:57:00 EDT, [facility], 175, cm, 12/03/22 11:50:00 EDT, Height, 88.9, kg, 10/21/22 20:41:00 EDT, Dry Weight Start Date: 12/22/22 Status: Ordered lactulose 10 gm/15 ml oral syrup 15 mL, By Mouth, 2 times a day, # 120 mL, 6 Refills, Maintenance, 02/26/23 10:11:00 EDT, [facility], 4, TAKE 15ML BY MOUTH TWO TIMES A DAY, 175, cm, 12/03/22 11:50:00 EDT, Height, 84, kg, 02/12/23 11:30:00 EDT, Dry Weight Start Date: 02/26/23 Status: Ordered Lidocaine 1% Inj 5 mL, Injection, Intradermal, Once, PICC Insertion, Routine, 03/22/23 10:25:00 EDT, Stop date 03/22/23 10:25:00 EDT Start Date: 03/22/23 Stop Date: 03/22/23 Status: Completed magnesium oxide 400 mg oral tablet See Instructions, TAKE 1 TABLET BY MOUTH TWICE A DAY^1R1,1R4, # 60 tablet, 11 Refills, Maintenance,01/28/23 12:31:00 EDT, [facility], 175, cm, 12/03/22 11:50:00 EDT, Height, 88.9, kg, 10/21/22 20:41:00 EDT, Dry Weight Start Date: 01/28/23 Status: Ordered Melatonin 3 mg oral tablet 1 tablet, By Mouth, Daily at bedtime, PRN NEEDED FOR INSOMNIA (PACKAGE IN TRAY)^1R4, # 60 tablet, 5 Refills, Maintenance, 06/12/22 18:11:00 EST, [facility], 60, TAKE 1 TABLET BY [...] 02/26/23 10:11:00 EDT, Route to Pharmacy Electronically, [facility], 175, cm, 12/03/22 11:50:00 EDT, [...] 05/03/23 12:02:00 EST, 03/22/23 12:02:00 EDT, Capsule, [facility]/pharmacy #[id number], Partial fill upon patient request if the prescription is for a schedule II opioid drug., 175, c... Start Date: 03/22/23 Stop Date: 05/03/23 Status: Ordered spironolactone 25 mg oral tablet 25 mg, 1, tablet, By Mouth, Daily, # 30 tablet, Refills 5, Tot. Refills 5, Maintenance, 11/05/22 11:31:00 EDT, Route to Pharmacy Electronically, [facility], Partial fill upon patient request if the prescription is for a schedule II opioid drug... Start Date: 11/05/22 Status: Ordered Tab-A-Jesse oral tablet 1 tablet, By Mouth, Daily, # 90 tablet, 1 Refills, 12/01/22 12:59:00 EDT, [facility], 28, 1tablet By Mouth Daily, 175, cm, 11/13/22 10:42:00 EDT, Height, 88.9, kg, 10/21/22 20:41:00 EDT, DryWeight Start Date: 12/01/22 Status: Ordered traZODone 50 mg oral tablet 2, tablet, By Mouth, Daily at bedtime, ^2R4., # 60 tablet, Refills 5, Maintenance, 02/26/23 10:11:00 EDT, Route to Pharmacy Electronically, [facility], 175, cm, 12/03/22 11:50:00 EDT, [...] 02/09/23 23:18:00 EDT, Route to Pharmacy Electronically, [facility], 175, cm, 12/03/22 11:50:00 EDT, Height, 88.9, kg, 10/21/22 20:41:00 EDT, Dry Weight Start Date: 02/09/23 Status: Ordered Vitamin B6 50 mg oral tablet 1, tablet, By Mouth, Daily, R1., # 90 tablet, Refills 4, Maintenance, 11/16/22 13:39:00 EDT, Route to Pharmacy Electronically, [facility], 175, cm, 11/13/22 10:42:00 EDT, Height, [...] tablet, 3 Refills, Maintenance, 02/26/23 10:11:00 EDT, [facility], 175, cm, 12/03/22 11:50:00 EDT, Height, [...] Results Orders for Microbiology Reports Name Date AFB Culture w/ AFB Smear, Nonrespiratory (ACID FAST CULT,NON-RESP) 03/20/23 Anaerobic Culture (ANAEROBIC CULTURE) Fungal Culture, Nonrespiratory (FUNGAL C ULT,NON-RESPIRATORY) 03/20/23 Tissue Culture w/ Gram Smear (TISSUE/BIO PSY CULT.) 03/20/23 Wound Deep Culture w/ Gram Smear (DEEP W OUND CULTURE) 03/20/23 Blood Culture 03/19/23 Blood Culture #2 03/19/23 Wound Superficial Culture W/ Gram Smear 03/19/23 Microbiology Reports TEST:Anaerobic Culture STATUS:Auth (Verified) BODY SITE: SOURCE:HIP COLLECTED DATE/TIME:03/20/23 12:20 PM Anaerobic Culture SPECIMEN DESCRIPTION : HIP ABSCESS OR SPECIMEN TISSUE SPECIAL REQUESTS : NONE CULTURE : NO ANAEROBES ISOLATED REPORT STATUS : FINAL 03/22/2023 TEST:Tissue/Biopsy Culture STATUS:Auth (Verified) BODY SITE: SOURCE:HIP COLLECTED DATE/TIME:03/20/23 12:20 PM Tissue/Biopsy Culture SPECIMEN DESCRIPTION : HIP TISSUE ABSCESS SPECIAL REQUESTS : NONE GRAM STAIN : 4+ POLYMORPHONUCLEAR LEUKOCYTES 1+ GRAM POSITIVE COCCI CRITICAL VALUE CALLED AND VERIFIED BY READBACK FOR: [place]AM [place] EN [id number], 7 [facility], 03/20/23 AT 1827 BY TECH 1620 CULTURE : 2+ STAPHYLOCOCCUS AUREUS, METHICILLIN RESISTANT. METHICILLIN RESISTANT STAPH AUREUS SHOULD BE CONSIDERED CLINICALLY RESISTANT TO ALL BETA-LACTAMS. This isolate was identified using Maldi-TOF system These AST results were performed on the Discrete Sport 2 ID and AST system Result reported to the COUNTS INCLUDE 234 BEDS AT THE [facility]. REPORT STATUS : FINAL 03/22/2023 ORGANISM 2+ STAPHYLOCOCCUS AUREUS, METHICILLIN RESISTANT. METHICILLIN RESISTANT STAPH AUREUS SHOULD BE CONSIDERED CLINICALLY RESISTANT TO ALL BETA-LACTAMS. This isolate was identified using Maldi-TOF system These AST results were performed on the Vitek 2 ID and AST system Result reported to the COUNTS INCLUDE 234 BEDS AT THE [facility]. METHOD MIN. INHIB. CONC. (MCG/ML) CIPROFLOXACIN SUSCEPTIBLE CLINDAMYCIN SUSCEPTIBLE ERYTHROMYCIN SUSCEPTIBLE INDUCIBLE CLINDAMYCI NEGATIVE LEVOFLOXACIN SUSCEPTIBLE LINEZOLID SUSCEPTIBLE OXACILLIN RESISTANT RIFAMPIN RESISTANT RIFAMPIN RIFAMPIN SHOULD NOT BE USED ALONE FOR ANTIMICROBIAL RIFAMPIN THERAPY. TETRACYCLINE SUSCEPTIBLE TRIMETH/SULFAMETHOX SUSCEPTIBLE VANCOMYCIN SUSCEPTIBLE TEST:Deep Wound Culture STATUS:Unauthenticated BODY SITE: SOURCE:HIP COLLECTED DATE/TIME:03/20/23 12:20 PM Deep Wound Culture SPECIMEN DESCRIPTION : HIP ABSCESS OR SPECIMEN SPECIAL REQUESTS : NONE REPORT STATUS : PRELIMINARY REPORT TEST:Fungal Culture, Non-Respiratory STATUS:Unauthenticated BODY SITE: SOURCE:HIP COLLECTED DATE/TIME:03/20/23 12:20 PM Fungal Culture, Non-Respiratory SPECIMEN DESCRIPTION : HIP ABSCESS OR SPECIMEN TISSUE SPECIAL REQUESTS : NONE DIRECT EXAM : NO FUNGAL ELEMENTS OBSERVED CULTURE : NO FUNGI ISOLATED AFTER 2 DAYS REPORT STATUS : PRELIMINARY REPORT TEST:AFB Culture w/AFB Smear, Non-Respiratory STATUS:Unauthenticated BODY SITE: SOURCE:HIP COLLECTED DATE/TIME:03/20/23 12:20 PM AFB Culture w/AFB Smear, Non-Respiratory SPECIMEN DESCRIPTION : HIP ABSCESS OR SPECIMEN TISSUE SPECIAL REQUESTS : NONE DIRECT EXAM : NO ACID FAST BACILLI SEEN ON DIRECT SMEAR, TEST PERFORMED AT [facility] CULTURE : SPECIMEN SENT TO [facility], [place], [place] REPORT STATUS : PRELIMINARY REPORT TEST:Blood Culture STATUS:Unauthenticated BODY SITE: SOURCE:Blood COLLECTED DATE/TIME:03/19/23 12:29 PM Blood Culture SPECIMEN DESCRIPTION : BLOOD RHAND SPECIAL REQUESTS : NONE CULTURE : NO GROWTH 3 DAYS REPORT STATUS : PRELIMINARY REPORT TEST:Blood Culture, Second Order STATUS:Unauthenticated BODY SITE: SOURCE:Blood COLLECTED DATE/TIME:03/19/23 12:29 PM Blood Culture, Second Order SPECIMEN DESCRIPTION : BLOOD NOSITE SPECIAL REQUESTS : NONE CULTURE : NO GROWTH 3 DAYS REPORT STATUS : PRELIMINARY REPORT TEST:Superficial Wound Culture STATUS:Auth (Verified) BODY SITE: SOURCE:SWAB1 COLLECTED DATE/TIME:03/19/23 9:10 AM Superficial Wound Culture SPECIMEN DESCRIPTION : SWAB HIP RT SPECIAL REQUESTS : NONE GRAM STAIN : NO CELLS OR ORGANISMS SEEN CULTURE : 3+ STAPHYLOCOCCUS AUREUS. This isolate was identified using Maldi-TOF system These AST results were performed on the Vitek 2 ID and AST system REPORT STATUS : FINAL 03/21/2023 ORGANISM 3+ STAPHYLOCOCCUS AUREUS. This isolate was identified using Maldi-TOF system These AST results were performed on the Vitek 2 ID and AST system METHOD MIN. INHIB. CONC. (MCG/ML) CIPROFLOXACIN SUSCEPTIBLE CLINDAMYCIN SUSCEPTIBLE ERYTHROMYCIN SUSCEPTIBLE INDUCIBLE CLINDAMYCI NEGATIVE LEVOFLOXACIN SUSCEPTIBLE OXACILLIN SUSCEPTIBLE RIFAMPIN SUSCEPTIBLE RIFAMPIN RIFAMPIN SHOULD NOT BE USED ALONE FOR ANTIMICROBIAL RIFAMPIN THERAPY. TETRACYCLINE RESISTANT TRIMETH/SULFAMETHOX SUSCEPTIBLE VANCOMYCIN SUSCEPTIBLE Radiology Reports * Exam Date Time Procedure Performing Provider Status 03/20/23 12:40 PM XR Hip 1 View Right Morgan , Yoselin; Auth (Verified) Notes: (XR Hip 1 View Right) Reason For Exam: Infection, Right Hip Antibiotic Bead Placement RESULT: Hip 1 View Right Hip 1 View Right INDICATION: Reason: Infection, Right Hip Antibiotic Bead Placement TECHNIQUE: 3 images. 7 seconds fluoroscopy time. COMPARISON: CT scan showing abscess 03/19/2023. Plain film examination 06/01/2022. FINDINGS: Images show placement of numerous semiopaque antibiotic beads immediately superior to the greater trochanter. IMPRESSION: 1. Images during abscess drainage and bead placement shows numerous antibiotic beads as noted above. WSN: [id number] Ordering Physician: Tobias Hernandez Dictated By: Dave Guillen MD Dictated Date/Time: 03/20/23 2:52 pm Reviewed By: Dave Guillen MD Signed By: Dave Guillen MD Signed Date/Time: 03/20/23 2:52 pm Transcribed By: MIRNA Transcribed Date/Time: 03/20/23 2:50 pm * Exam Date Time Procedure Performing Provider Status 03/19/23 2:07 PM XR Femur 2 Views Right Luis Herbert; Auth (Verified) Notes: (XR Femur 2 Views Right) Reason For Exam: Infection RESULT: Femur 2 Views Right Femur 2 Views Right Hx of Present Illness: R hip open wound X 1 week sustained after a fall. pt stating his med nurse checked out the wound and noted it to be oozing . Has been using antibiotic cream on it. Denying fevers chils. just wants antibiotics.; Reason: Infection; Clinical Question(s): Position Fixation COMPARISON: Plain films 11/06/2022, 17 T 623 FINDINGS: Status post ORIF of the right proximal femur. No acute fracture. Mild lucency surrounding the prosthetic screws, as seen on recent CT. No hip dislocation. Preserved joint spaces. Contrast-filled bladder. IMPRESSION: Similar to the CT performed earlier today, there is mild lucency surrounding the prosthetic screws,which may represent loosening or osteomyelitis in the right clinical setting. I have personally reviewed the images and I agree with this report. WSN: [id number] Ordering Physician: Eveline Chinchilla Dictated By: Uriel Bird MD Dictated Date/Time: 03/19/23 2:23 pm Reviewed By: Royer Patterson MD, V Signed By: Royer Patterson MD, V Signed Date/Time: 03/19/23 2:28 pm Transcribed By: MIRNA Transcribed Date/Time: 03/19/23 2:13 pm * Exam Date Time Procedure Performing Provider Status 03/19/23 10:[address] Ext Lower W/ Contrast Right Margaret Gutierrez; Tanna (Verified) Notes: (CT Ext Lower W/ Contrast Right) Reason For Exam: Other: RESULT: CT Ext Lower W/ Contrast Right CT Ext Lower W/ Contrast Right Refer to EMR; Hx of Present Illness: R hip open wound X 1 week sustained after a fall. Pt stating his med nurse checked out the wound and noted it to be oozing . Has been using antibiotic cream onit. Denying fevers chil. Just wants antibiotics.; Reason: Other:; Clinical Question(s): Femur; Special Instructions: Fall, dehiscence of proximal surgical wound post InterTAN hardware right hip fract TECHNIQUE: Helical CT with contrast formatted in 3 planes. 100 cc of Omnipaque 300 was administeredintravenously. Weight-based protocol using automatic tube modulation was used to optimize exposure parameters. CTDIvol Body: 31.60 mGy, DLP Body: 1865 mGy*cm. COMPARISONS: None FINDINGS: Bones and joints: Patient is status post ORIF of right intertrochanteric fracture. There is lucencysurrounding the canalicular screws. There are cortical erosions along the greater trochanter on some images. Soft Tissues: There is a 4 x 4 x 2 cm loculated collection with a tract extending to the skin surface along the right hip laterally. It also appears to extend to the region of the greater trochanter.There is skin thickening with subcutaneous stranding. IMPRESSION: Findings are concerning for infected collection with extension to the skin surface and the greater trochanter with associated cellulitis. There is lucency surrounding the canalicular screws which maybe due to loosening or infection. There is erosion of a portion of the greater trochanter which is concerning for osteomyelitis. Recommend aspiration of these collection and laboratory evaluation. Additionally recommend 3 phase bone scan to rule out osteomyelitis. An actionable message ([place]) has been communicated via the [employer] system on 03/19/2023 11:21 AM, Message ID [id number]. WSN: [id number] Ordering Physician: Nick Saucedo Dictated By: Nelson Vasques MD Dictated Date/Time: 03/19/23 11:22 a Reviewed By: Nelson Vasques MD Signed By: Nelson Vasques MD Signed Date/Time: 03/19/23 11:22 am Transcribed By: MIRNA Transcribed Date/Time: 03/19/23 11:10 am Vital Signs Most recent to oldest [Reference Range]: 1 2 3 Height 175 cm (03/22/23 6:50 AM) 175 cm (03/22/23 4:09 AM) 175 cm (03/21/23 6:59 PM) Weight 77.5 kg (03/20/23 11:30 AM) 77.5 kg (03/19/23 7:20 PM) 77.5 kg (03/19/23 9:08 AM) Oxygen Saturation [94-100 %] 96 % (03/22/23 6:50 AM) 100 % (03/22/23 4:09 AM) 99 % (03/21/23 6:59 PM) Pulse Rate [55-90 bpm] 72 bpm (03/22/23 6:50 AM) 78 bpm (03/22/23 4:09 AM) 97 bpm *H* (03/21/23 6:59 PM) Body Mass Index [18.5-24.99 kg/m2] 25.31 kg/m2 *H* (03/20/23 11:30 AM) 25.31 kg/m2 *H* (03/19/23 7:20 PM) 25.31 kg/m2 *H* (03/19/23 9:08 AM) Blood Pressure [90-138/55-84 mm Hg] 115/59mm Hg (03/22/23 7:50 AM) 115/59mm Hg (03/22/23 6:50 AM) 134/79mm Hg (03/22/23 4:09 AM) Respiratory Rate [16-30 br/min] 16 br/min (03/22/23 10:55 AM) 19 br/min (03/22/23 6:50 AM) 18 br/min (03/22/23 4:09 AM) Temperature [96.8-100.4 DegF] 98.3 DegF (03/22/23 6:50 AM) 98.1 DegF (03/22/23 4:09 AM) 98.8 DegF (03/21/23 6:59 PM) Liters per Minute 6 L/min (03/20/23 1:00 PM) Mode of Delivery (Oxygen) Room air (03/22/23 6:50 AM) Room air (03/22/23 4:09 AM) Room air (03/21/23 6:59 PM) Blood pressure sites Arm, right (03/21/23 3:41 PM) Arm, right (03/21/23 10:27 AM) Arm, right (03/21/23 6:15 AM) Temperature Route Oral (03/22/23 6:50 AM) Oral (03/22/23 4:09 AM) Oral (03/21/23 6:59 PM) Dry Weight 77.5 kg (03/20/23 11:30 AM) 77.5 kg (03/19/23 7:20 PM) 77.5 kg (03/19/23 9:08 AM) Weight Obtained Via Patient/family stated (03/19/23 7:20 PM) Patient/family stated (03/18/23 8:01 PM) Dry Weight Obtained Via Patient/family stated (03/19/23 7:20 PM) Patient/family stated (03/18/23 8:01 PM) Social History Social History Type Response Smoking Status 10 or more cigarette s (1/2 pack or more)/day in last 30 days entered on: 02/04/19 Sex Note * Tila Cary: PERFORM Event Display: Procedures Invasive Line Authored Date: [id number] Vascular Access Insertion Entered On: 03/22/2023 11:02 EDT Performed On: 03/22/2023 11:00 EDT by Tila Cary Vascular Access Insertion Date of Vascular Access Insertion : 03/22/2023 EDT Procedure Location Vascular Access : SW7 Person recording insertion : [employer] of Vascular Access : Tila Cary 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/IV 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 : Yes Tila Cary - 03/22/2023 11:00 EDT Procedural Comments Risk Factors and Labs Reviewed : Yes Anticoagulation Therapy : No Antiplatelet Therapy : No Tila Cary - 03/22/2023 11:00 EDT Was vascular access order placed : [...] line Vascular Access Insertion Site : Other: RUE basilic vein Vascular Access Insertion Side : Right Vascular Access Catheter Size : 4fr Vascular Access Catheter Length : 43cm Vessel Identified By : Ultrasound Vascular Access Insertion Circumstance : Non-emergent Vascular Access Catheter Securement : Sutureless (Statlock) Vascular Access Dressing : Occlusive Follow-up CXR : Not applicable CXR Comment : distal SVC confirmed with Sherlock 3CG technology Tila Cary - 03/22/2023 11:00 EDT DCP GENERIC CODE Suture needles : 0 Henderson : 3 Scalpels : 1 Clamps : 0 Guide Wires : 1 Tila Cary - 03/22/2023 11:00 EDT Complications during Insertion : None Tolerated CLIP procedure well : Yes Insertion Attempts : 1 Vascular Access Device QA : CTPICC SL 4fr @ 43cm Vascular Access Device Lot Number : [id number] Vascular Access Device Code : [id number] Vascular Access Device Expiration Date : 03/13/2023 EDT Vascular Access Insertion Comments : Mid arm circumference 10cm above AC Fossa-33cm Tila Cary - 03/22/2023 11:00 EDT * Eloina Fuentes RN: PERFORM Event Display: Discharge/Transfer Note Hospital Authored Date: Nursing Discharge Note Entered On: 03/22/2023 13:44 EDT Performed On: 03/22/2023 13:43 EDT by Eloina Fuentes RN Nursing Discharge Note 2 Discharge Time : 03/22/2023 13:30 EDT Discharge Level of Care at Discharge : Home/[facility] Care AMA Form Signed : Yes Patient Left Unit Via : Ambulatory Patient Accompanied Off Unit with : Other: none DC Instructions Provided & Signed by Pt : No Patient Understands D/C Instructions : No Patient Instructions Discharge Signed : No Did Pt have Specialty Bed or Wound Vac : Yes Eloina Fuentes RN - 03/22/2023 13:43 EDT * Scar LEE, Peyman Hernandez: PERFORM, MODIFY, MODIFY Event Display: Discharge/Transfer Note Hospital Authored Date: Patient: ??GEMA BASSETT ? Age:??48 Years?Sex:??Male?:??1975?? Patient Information Discharge Location: [facility] Primary Care Physician: Jany Baig DO Admit Date/Time: 03/19/23 16:17 Discharge Disposition Discharge Disposition: ?Left AMA _ Discharge Medications Acamprosate (acamprosate 333 mg oral delayed release tablet)?1?tab(s)?333?Milligram?By Mouth?3 times a day?for 14?Days Amlodipine (amLODIPine 5 mg oral tablet)?1?tab(s)?By Mouth?Daily?^1R1. Baclofen (baclofen 10 mg oral tablet)?See Instructions?TAKE ONE TABLET BY MOUTH THREE TIMES ADAY ^1R1,1R2,1R4 Calcium And Vitamin D Combination (calcium (as carbonate)-vitamin D 500 mg-400 intl units oral tablet)?1?tab(s)?By Mouth?Daily?^1R1. Diclofenac Topical (diclofenac 1% topical gel)?See Instructions?APPLY TOPICALLY TO AFFECTED AREA(S) FOUR TIMES A DAY NEEDED FOR PAIN (BULK) Doxycycline (doxycycline hyclate 100 mg oral tablet)?1?tab(s)?100?Milligram?By Mouth?Every 12 hours?for 42?Days Durable Medical Equipment (Compression Stockings)?See Instructions?surgical, calf length 20-30 mm [id number] Durable Medical Equipment (R aircast ankle-stirrup support brace)?See Instructions?Dx: R inversion ankle [id number] Durable Medical Equipment (Walker)?See Instructions?2 wheeled Walker.Dx: [...] Mouth?Daily?for 90?Days?^1R1. Paroxetine (PARoxetine 10 mg oral tablet)?1?tablet?By Mouth?Daily?^1R1. Pyridoxine (Vitamin B6 50 mg oral tablet)?1?tablet?By Mouth?Daily?R1. RifAMPIN (rifampin 300 mg oral capsule)?2?capsule?600?Milligram?By Mouth?Daily?for 42?Days Rifaximin (Xifaxan 550 mg oral tablet)?1?tab(s)?By Mouth?2 times a day?VIAL. Spironolactone (spironolactone 25 mg oral tablet)?25?Milligram?1?tablet?By Mouth?Daily Thiamine (Vitamin B1 100 mg oral tablet)?1?tablet?By Mouth?Daily Trazodone (traZODone 50 mg oral tablet)?2?tablet?By Mouth?Daily at bedtime?^2R4. Ubiquinone (Co Q-10 100 mg oral capsule)?See Instructions?TAKE 1 CAPSULE BY MOUTH FOUR TIMES DAILY ? Medications Started Doxycycline 200 mg BID for 6 weeks, and to be continued lifelong for chronic suppression Rifampin 600 mg daily for 6 weeks and then to be stopped Medications Discontinued none Doses Changed None Allergies Allergies ?(Active and [...] had GI side effects ? PCP Follow-Up/Heads-Up Patient admitted with prosthetic joint infection, s/p hip washout left AMA Discharged on po antibiotics, will need follow up with ortho and ID He also needs repeat CBC in 1 week due to progressive thrombocytopenia. Future Appointments 2022 10:00 AM EST ?? With: Padmini LEE, Terry Srivastava Where: [facility] [address] [place] [address]- Status: Pending Wednesday 1:45 PM EST ?? Where: [facility] Status: Pending Objective ?? #Right hip surgical incision wound with drainage #Concern for right hip??osteomyelitis #Right hip hardware infection Patient has [facility] noticed that there was oozing and discharge from the wound and hence he was recommended to come to the ER CT scan showed findings concerning for an infected collection with extension to skin surface and greater trochanter with associated cellulitis Also raised concern for osteomyelitis ESR and C-reactive protein are also significantly elevated Patient was empirically started on vancomycin and Zosyn Patient underwent washout in the OR??on 03/20/2023 Follow-up on blood cultures and culture sent from the OR tentatively??growing MRSA?? PICC line was placed on 03/22/23 am with plans of arranging for atleast 6??weeks of iv antibiotics but patient adamant to leave AMA, to visit his mother. Was asking to leave??AMA prior but??we??were able to convince him to stay but today adamant. Has capacity to make decisions, and understands the??risks including worsening infection, shock and??.?? Ultimately PICC line removed prior to discharge.?? After discussion with ID discharged on po doxycycline 100 mg BID??for 6 weeks which will need to becontinued for lifelong suppression ultimately and also rifampin 600 mg daily for 6 weeks.??Ok for concurrent use of rifampin and rifaximin per pharmacy. Appreciate ID assistance in management. They??have scheduled appointment for patient on 04/22/23. Notified ortho of patient??leaving AMA Advised him to follow up with PCP, ortho and ID. ?? #History of alcohol use disorder #Substance use disorder Serum ethanol levels were negative Patient states he was sober since 2.5 months, serum ethanol level was normal. Initially on CIWA and did not score ?? #Acute on chronic anemia # Progressive thrombocytopenia Unclear cause, could be in setting of infection. Advised patient to stay inhopsital but left AMA He was getting heparin for DVT PPx, will check for anti-PF4 if im able to add on, for future. Will need outpatient PCP follow up and repeat CBC in 1-2 weeks. ?? #Alcohol induced liver cirrhosis s/p TIPS Patient follows up with GI as outpatient No recent upper GI bleed Resume diuretics on discharge. Continue rifaximin, will add lactulose ?? #Anxiety and depression???continue home paroxetine??and trazodone? #Hypertension???continue amlodipine ? Vital Signs?? Temperature: 98.3 DegF (03/22/23 06:50:00) Temperature Route: Oral (03/22/23 06:50:00) Pulse Rate: 72 bpm (03/22/23 06:50:00) Respiratory Rate: 16 br/min (03/22/23 10:55:00) Systolic Blood Pressure: 115 mm Hg (03/22/23 07:50:00) Diastolic Blood Pressure: 59 mm Hg (03/22/23 07:50:00) Blood pressure sites: Arm, right (03/21/23 15:41:00) Mean Arterial Pressure: 78 mm Hg (03/22/23 06:50:00) Pulse Pressure: 56 mm Hg (03/22/23 06:50:00) Oxygen Saturation: 96 % (03/22/23 06:50:00) Mode of Delivery (Oxygen): Room air (03/22/23 06:50:00) Early Warning Score: 3 (03/22/23 11:04:51) ? Intake/Output? 10/06 16:17 03/22 07:00 03/21 07:00 03/20 07:00 03/19 07:00 ?? 03/22 12:05 03/22 12:05 03/22 06:59 03/21 06:59 03/20 06:59 Intake ? 2120 ?240 ? 1000 ?200 ?680 Output ? 5850 ?0 ? 2850 ? 2150 ?850 Net Total ?-3730 ?240 ?-1850 ?-1950 ? -170 ? . Physical Exam Patient did not let me examine, dressed up and standing in hallway to leave AMA. Surgical Procedures Incision and Drainage Abscess 03/20/2023 12:13 Consultants ID Ortho Pending Results AFB Culture w/ AFB Smear, Nonrespiratory ordered on 03/20/2023 Blood Culture ordered on 03/19/2023 Blood Culture #2 ordered on 03/19/2023 Cannabinoid Urine Screen ordered on 03/20/2023 Cocaine Urine Screen ordered on 03/20/2023 Fungal Culture, Nonrespiratory ordered on 03/20/2023 Opiate Screen Urine ordered on 03/20/2023 XR C-Arm < 1 Hour ordered on 03/20/2023 Patient Instructions You were admitted to the hospital due to infection of your??prosthetic device in your hip You underwent a procedure with orthopedics??to washout the hip??and we had been managing you with IV antibiotics The plan was to make arrangements so??that you could go to a facility to get your IV antibiotics for 6 weeks to adequately treat the infection However you did not want to stay in the hospital despite??explaining to you to the risks that if the infection is not treated adequately??this might even need to worsening??severe infection, shock aswell as could lead to ??however??you wish to leave AGAINST MEDICAL ADVICE ?? We are prescribing oral antibiotics??to [facility] pharmacy on [facility] in [place]??please take them as prescribed: -Doxycycline 100 mg tablet to be taken twice a day for 6 weeks??and then to be continued lifelong -Rifampin 600 mg??daily??for 6 weeks that is 42 days and then stop ?? Please see your primary care physician in 1 to 2 weeks Please see your Ortho doctor in the office in 1 to 2 weeks-?? please call [facility] at [phone] to schedule appointment We are trying to set up an appointment with infectious disease as well??- the number to their office is [phone] , if you do not hear back please call them to schedule an appointment. ?? your infection is very severe and is present??in your hip joint especially in the presence of a prosthetic device this is a very serious condition if not treated adequately once again??we are informing you that the infection could get significantly worse or you could go into shock and this can alsoresult in if this is not treated properly. ?? We highly recommend you to follow-up with??your primary care doctor, orthopedics and infectious disease doctors in the office. Post Discharge Care Discharge ?03/22/23 12:11:00 EDT Discharge Prescriptions ?ePrescribed, 03/22/23 12:11:00 EDT Home Health Face to Face ^HomeHealthFTF Results Discharge Labs BLOOD COUNT & DIFF WBC 6.5 k/mm3 ()?? 03/22/2023 04:27 RBC 3.15 m/mm3 (Low)?? 03/22/2023 04:27 Hgb 9.7 Gm/dL (Low)?? 03/22/2023 04:27 Hct 28.7 % (Low)?? 03/22/2023 04:27 MCV 91.1 femtoliters ()?? 03/22/2023 04:27 MCH 30.8 pg ()?? 03/22/2023 04:27 MCHC 33.8 g/dL ()?? 03/22/2023 04:27 Platelet Count 74 k/mm3 (Low)?? 03/22/2023 04:27 RDW-SD 45.8 femtoliters ()?? 03/22/2023 04:27 MPV 10.0 femtoliters ()?? 03/22/2023 04:27 Nucleated RBC (Automated) 0.0 #/100 WBC'S ()?? 03/22/2023 04:27 Abs. NRBC 0.0 k/mm3 ()?? 03/22/2023 04:27 Abs. Neut 2.4 k/mm3 ()?? 03/18/2023 21:39 Abs. Lymph 1.4 k/mm3 ()?? 03/18/2023 21:39 Abs. Stark 0.6 k/mm3 ()?? 03/18/2023 21:39 Abs. Eo 0.1 k/mm3 ()?? 03/18/2023 21:39 Abs. Baso 0.0 k/mm3 ()?? 03/18/2023 21:39 Neut % 52.7 % ()?? 03/18/2023 21:39 Lymph % 30.8 % ()?? 03/18/2023 21:39 Stark % 12.6 % (High)?? 03/18/2023 21:39 Eos % 2.8 % ()?? 03/18/2023 21:39 Baso % 0.4 % ()?? 03/18/2023 21:39 Imm Gran 0.7 % ()?? 03/18/2023 21:39 Abs. Imm Gran 0.0 k/mm3 ()?? 03/18/2023 21:39 ?? CHEM GENERAL Sodium 139 mmol/L ()?? 03/22/2023 04:27 Potassium 4.0 mmol/L ()?? 03/22/2023 04:27 Chloride 108 mmol/L (High)?? 03/22/2023 04:27 Bicarbonate Level 22 mmol/L ()?? 03/22/2023 04:27 Anion Gap 9 ()?? 03/22/2023 04:27 Glucose Level 113 mg/dL (High)?? 03/22/2023 04:27 BUN 8 mg/dL ()?? 03/22/2023 04:27 Creatinine-Blood 0.6 mg/dL (Low)?? 03/22/2023 04:27 Estimated GFR Creatinine 116 ML/MIN/1.73 M2 ()?? 03/22/2023 04:27 Calcium 8.3 mg/dL (Low)?? 03/22/2023 04:27 Magnesium 1.9 mg/dL ()?? 03/22/2023 04:27 C-Reactive Protein 2.5 mg/dL (High)?? 03/19/2023 09:40 ?? HEME OTHER Sed Rate 36 mm/hr (High)?? 03/19/2023 09:40 ? TOXICOLOGY/TDM Ethanol, Serum or Plasma NONE DETECTED mg/dL ()?? 03/20/2023 16:08 ? URINE OTHER Est Creatinine Clearance 146.80 mL/min ()?? 03/22/2023 05:38 ? Blood Glucose Trend Glucose Level:??113 mg/dL??High (03/22/23 04:27:00) ? Microbiology ?? Wound Superficial Culture W/ Gram Smear?? Completed?? Source: Swab Body Site: Hip Right Collected Dt/Tm: 03/19/2023 09:20 Last Updated Dt/Tm: 03/19/2023 09:48 ?SPECIMEN DESCRIPTION : SWAB HIP RTSPECIAL REQUESTS : NONEGRAM STAIN : NO CELLS OR ORGANISMS SEENCULTURE : 3+ STAPHYLOCOCCUS AUREUS. ??This isolate was identified using Maldi-TOF ? system These AST results were performed on the Vitek 2 ID and AST ? systemREPORT STATUS : FINAL 03/21/2023ORGANISM ? 3+ STAPHYLOCOCCUS AUREUS. ??This isolate was ? identified using Maldi-TOF system These AST results were performed on the Vitek 2 ID and AST systemMETHOD ? MIN. INHIB. CONC. (MCG/ML)CIPROFLOXACIN ?SUSCEPTIBLECLINDAMYCIN ?SUSCEPTIBLEERYTHROMYCIN ? SUSCEPTIBLEINDUCIBLE CLINDAMYCI NEGATIVELEVOFLOXACIN ? SUSCEPTIBLEOXACILLIN ?SUSCEPTIBLERIFAMPIN ? SUSCEPTIBLERIFAMPIN ? RIFAMPIN SHOULD NOT BE USED ALONE FOR ANTIMICROBIALRIFAMPIN ?THERAPY.TETRACYCLINE ? RESISTANTTRIMETH/SULFAMETHOX ??SUSCEPTIBLEVAN COMYCIN ? SUSCEPTIBLE ? 60 minutes spent on discharge History and physical note * Anoop Singh MD: PERFORM, MODIFY, MODIFY Event Display: History and Physical Hospital Authored Date: Patient: ??GEMA BASSETT ? Age:??48 Years?Sex:??Male?:??1975?? Chief Complaint/Reason for Consultation left hip wound/infection History of Present Illness ??48-year-old male with past medical history of alcohol use disorder, alcoholic cirrhosis, UGI bleed with esophageal varices, history of hepatic?? encephalopathy substance use, ANA LUISA, anxiety/depression, legally blind, right- sided intertrochanteric hip fracture with s/p??ORIF InterTAN who presented with open wound and discharge from the right hip. ?? Patient told me that over the last week, he has been having discharge from the surgical wound site and has associated pain. ?? No history of fever No history of cough with expectoration No history of chest pain or palpitations No history of loss of weight/appetite No history of dizziness/loss of consciousness No history of abdominal pain No history of vomiting/diarrhea No history of leg pain/leg swelling ?? ED course: Labs were significant for Hb of 11.2, elevated ESR and CRP.?? Rest were within normal limits.?? CT scan of the lower extremity with contrast, revealed s/p ORIF of right intertrochanteric fracture and.?? Cortical erosions on the greater trochanter.?? 4 g for close to 2 cm loculated collection with atract extending to the skin surface.?? Subcutaneous fat stranding seen.?? Findings concerning for greater trochanter of the hip osteomyelitis associated with cellulitis.?? Lucency surrounding the canalicular sclerosis which can be from infection or screw loosening.?? Orthopedic surgery was consulted with plan for surgical fixation tomorrow.?? Admitted under medicalteam for optimization before the procedure. Review of Systems GEN: ??Denies any issues with sleep, fatigue or changes in wt. HEENT: Denies runny nose, dry mouth, ??sore throat or changes to his vision. CV: Denies CP, palpitations, edema or orthopnea. PULM: Denies any SOB, wheezing, cough. ABD: Denies any abdominal pain, N/V/D, heartburn. ??Denies any changes to bowel habits or stool character.?? : Denies dysuria, polyuria, or hematuria. EXT: Denies any joint pain, stiffness, numbness or tingling.?? PSYCH: Denies any depression or anxiety. Objective Measurements?? Height: 175 cm (03/19/23) Weight: 77.5 kg (03/19/23) Dry Weight: 77.5 kg (03/19/23) Body Mass Index:??25.31 kg/m2??High (03/19/23) ? Vital Signs?? Temperature: 97.9 DegF (03/19/23 19:20:00) Temperature Route: Oral (03/19/23 19:20:00) Pulse Rate: 88 bpm (03/19/23 19:20:00) Respiratory Rate: 18 br/min (03/19/23 19:20:00) Systolic Blood Pressure: 128 mm Hg (03/19/23 19:20:00) Diastolic Blood Pressure: 77 mm Hg (03/19/23 19:20:00) Blood pressure sites: Arm, right (03/19/23 19:20:00) Mean Arterial Pressure: 94 mm Hg (03/19/23 19:20:00) Pulse Pressure: 51 mm Hg (03/19/23 19:20:00) Oxygen Saturation: 99 % (03/19/23 18:00:00) Mode of Delivery (Oxygen): Room air (03/19/23 18:00:00) Early Warning Score: 5 (03/19/23 19:38:40) ? Physical Exam General Appearance: The patient is in NAD. HEET: EOMI. YOLIE. No scleral icterus. Neck supple. MM most. Cardiovascular: RRR S1 and S2 heard. No murmurs, gallops, or rubs appreciated. Respiratory: ??Breath sounds clear to auscultation bilaterally. No wheezing. Good air movement throughout both lungs. GI: Soft. Nontender and nondistended. Normal bowel sounds present throughout abdomen.? MS: ??No edema or erythema in the lower extremities. Skin:??No rashes. Warm and dry. Skin intact. Neuro: ??No slurred speech. 5/5 upper and lower extremity strength bilaterally. Psych: Alert and oriented x3. Assessment/Plan 48year-old male with??recent??history of??ORIF??for right intertrochanteric fracture??who presentedwith??signs and symptoms concerning for??osteomyelitis/cellulitis of the right hip??and a possible loosening of the??canalicular screws.?? Consulted orthopedic surgery for planning for surgical fixation,??pending??medical optimization. ?? Left hip??wound infection with discharge ??? Osteomyelitis of the greater trochanter Cellulitis ?? Patient presenting with 1 week of discharge, post??oral for right intertrochanteric fracture of thehip. ?? On examination,??wound dehiscence and discharge noted. ?? CT lower extremity concerning for??probable osteomyelitis??versus cellulitis,??also suggesting a possibility of canalicular screw loosening. Orthopedic surgery consulted??scheduled for OR for surgical procedure tomorrow. ?? Plan: -Orthopedics following up, appreciate recommendations -Surgical fixation tomorrow -IV antibiotics Zosyn and vancomycin. -Await??wound discharge cultures ? Preoperative risk assessment ?? Cardiac: Ayanna preoperative risk assessment Patient 0.9 % Risk of myocardial infarction or cardiac arrest, intraoperatively or up to 30 days post-op ? Also, Patient has??no??history of??chest pain/palpitations or shortness of breath. EKG obtained on -normal sinus rhythm,??heart rate-85/min ?? Recs: -Patient very low risk??in terms of cardiac??for the procedure ? Pulmonary: Ayanna preoperative??risk assessment score of??1% risk of mechanical ventilation for >48 hrs after surgery, or unplanned intubation within 30 days of surgery ? Also,??patient does not have??any history of??fever, cough with expectoration??or wheezing. ?? Recs: -Patient??has??low pulmonary risk for the procedure -We will recommend??incentive spirometry??and chest physiotherapy. ?? Overall, patient has low preoperative risk for surgery ?? Accurate?? medication reconciliation??cannot be performed, because the patient does not remember the name of the medication and usually takes 10 YM with minor.?? Suggested to call her mom??regarding the medications he was unable to coal picker the call after 4 attempts.?? Therefore, will defer it to the a.m. team. ?? Quality Measures Code Status: FULL Diet: Regular DVT prophylaxis: heparin 5000 s.c 3times a day OMN: Osteomyelitis of the R hip, ? canalicular screw loosening planned for surgical fixation tomorrow. ?? Patient seen and discussed with Dr. Dumont ?? Anoop Singh MD Internal Medicine PGY1 Pager?? [phone] Histories Allergies Allergies ?(Active and Proposed Allergies [...] ??Previous treatment: Inpatient. 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 Exercise Details:??Exercise type: Walking. Home/Environment Details:??Living situation: [...] Baclofen (baclofen 10 mg oral tablet)?See Instructions?TAKE ONE TABLET BY MOUTH THREE TIMES ADAY ^1R1,1R2,1R4 Calcium And Vitamin D Combination (calcium (as carbonate)-vitamin D 500 mg-400 intl units oral tablet)?1?tab(s)?By Mouth?Daily?^1R1. Diclofenac Topical (diclofenac 1% topical gel)?See Instructions?APPLY TOPICALLY TO AFFECTED AREA(S) FOUR TIMES A DAY NEEDED FOR PAIN (BULK) Durable Medical Equipment (Compression Stockings)?See Instructions?surgical, calf length 20-30 mm [id number] Durable Medical Equipment (R aircast ankle-stirrup support brace)?See Instructions?Dx: R inversion ankle [id number] Durable Medical Equipment (Walker)?See Instructions?2 wheeled Walker.Dx: [...] + D 500/400 TABS)?1?tab(s)?By Mouth?Daily?^1R2. Miscellaneous Rx (CALCIUM + D 500/400 TABS)?1?tab(s)?By Mouth?Daily?^1R2. Miscellaneous Rx (CALCIUM + D 500/400 TABS)?See Instructions?TAKE ONE TABLET BY MOUTH EVERY DAY ^1R2 Miscellaneous Rx (CALCIUM + D 500/400 TABS)?1?tab(s)?By Mouth?Daily?^1R2. Multivitamin (Tab-A-Jesse oral tablet)?1?tab(s)?By Mouth?Daily Pantoprazole (pantoprazole 40 mg oral delayed release tablet)?1?tab(s)?By Mouth?Daily?for 90?Days?^1R1. Paroxetine (PARoxetine 10 mg oral tablet)?1?tablet?By Mouth?Daily?^1R1. Pyridoxine (Vitamin B6 50 mg oral tablet)?1?tablet?By Mouth?Daily?R1. Rifaximin (Xifaxan 550 mg oral tablet)?1?tab(s)?By Mouth?2 times a day?VIAL. Spironolactone (spironolactone 25 mg oral tablet)?25?Milligram?1?tablet?By Mouth?Daily Thiamine (Vitamin B1 100 mg oral tablet)?1?tablet?By Mouth?Daily Trazodone (traZODone 50 mg oral tablet)?2?tablet?By Mouth?Daily at bedtime?^2R4. Ubiquinone (Co Q-10 100 mg oral capsule)?See Instructions?TAKE 1 CAPSULE BY MOUTH FOUR TIMES DAILY ? Inpatient Medications Medications (23) Active SCHEDULED: (14) Amlodipine 5 mg Tablet (amLODIPine 5 mg oral tablet) ??5 mg, By Mouth, Daily Baclofen 10 mg Tablet (baclofen 10 mg oral tablet) ??10 mg, By Mouth, 3 times a day Calcium Citrate 315mg / Vit D 250IU (Citracal Maximum + Vitamin D Tablet) ??315 mg 1 tablet, By Mouth, Daily CeFAZolin 2 Gm Inj (ceFAZolin Inj) ??2 Gm, IV Push, Once Fluticasone Propionate 50mcg/inh Nasal [place] (fluticasone 50 mcg/inh nasal spray) ??50 mcg 1 sprays, Nares, Both, 2 times a day Folic Acid 1 mg Tablet (folic acid 1 mg oral tablet) ??1 mg, By Mouth, Daily Furosemide 20 mg Tablet (furosemide 20 mg oral tablet) ??20 mg, By Mouth, Every other day Gabapentin 300 mg Capsule (gabapentin 300 mg oral capsule) ??300 mg, By Mouth, Daily at bedtime Magnesium Oxide 400 mg Tablet (magnesium oxide 400 mg oral tablet) ??400 mg, By Mouth, 2 times a day NaCl 0.9% Flush 3ml (NaCL 0.9% Flush) ??3 mL, IV Push, Every 8 hours Pantoprazole 40 mg EC Tablet (pantoprazole 40 mg oral delayed release tablet) ??40 mg, By Mouth, Daily Pyridoxine 50 mg Tablet (Vitamin B6 50 mg oral tablet) ??50 mg, By Mouth, Daily Rifaximin (Xifaxan 550 mg oral tablet) ??550 mg 1 tablet, By Mouth, 2 times a day Trazodone 50 mg Tablet (traZODone 50 mg oral tablet) ??100 mg, By Mouth, Daily at bedtime CONTINUOUS: (0) PRN: (9) Dextromethorphan-Guaifenesin 20 mg-200 mg/10 mL Liqu UD [...] ??3 mg, By Mouth, Daily at bedtime Melatonin 3 mg Tablet (melatonin 3 mg [...] Chew, 3 times a day ? Results Abnormal Labs ?? CHEM GENERAL ??C-Reactive Protein ??2.5 mg/dL (High) ??03/19/2023 09:40 ? HEME OTHER ??Sed Rate ??36 mm/hr (High) ??03/19/2023 09:40 ? Note: Critical results are displayed in red. ? * Jaylan Dumont MD: PERFORM Event Display: History and Physical Hospital Authored Date: [id number] ??Attending Attestation: I have seen and evaluated this patient.?? I have discussed the case and its management with the resident and agree with the findings and bertha documented in the resident's note.?? I?? will continue to provide care to this patient till?? 3AM of the admitting date.? 48-year-old male with a past medical history of alcoholism, alcoholic cirrhosis, esophageal varices, hepatic encephalopathy, anxiety, depression, right-sided intratrochanteric hip fracture to the clinic to [facility] clinic with a complaint of wound or discharge from the right hip.?? Concern of osteomyelitis of the greater trochanter.?? Evaluated by Ortho.?? Patient is going to the OR in the morning time.?? We will continue with the broad-spectrum antibiotics.?? Cardiovascular preoperative risk assessment as mentioned above.?? There is a low risk for pulmonology complication.?? Low risk for delirium.?? I have talked with the patient regarding risk and benefit and he wanted to go ahead with the proposed surgery.?? No history of?? recent GI bleed.?? We will continue with subcu heparin for DVT prophylaxis. _ EKG study * Event Display: EKG Authored Date: * Event Display: ECG 12-Lead Authored Date: Please click on pdf link to open report * Event Display: ECG 12-Lead Authored Date: Ventricular Rate: 85 BPM Atrial Rate: 85 BPM P-R Interval: 164 ms QRS Duration: 86 ms Q-T Interval: 398 ms QTC Calculation(Bazett): 473 ms P [place]: 2 degrees R [place]: 33 degrees T [place]: 30 degrees Normal sinus rhythm Normal ECG When compared with ECG of 14-SEP-2022 23:10, No significant change was found Confirmed by LEE SOLARES MD ([id number]) on 03/20/2023 7:44:42 AM [place]: LEE SOLARES MD Cardiology * Event Display: Cardiac Rhythm Strips Authored Date: Hospital Progress note * Dorene Soriano: PERFORM Event Display: Progress [facility] Authored Date: Patient: ??GEMA BASSETT ? Age:??48 Years?Sex:??Male?:??1975?? Subjective POD #2 ? Patient seen and examined this AM. Notes reviewed. Discussed with RN.??Pain is well controlled. Patient wants to leave AMA.??Discussed need for IV antibiotics, but he wants to pursue oral treatment. Discussed staying until dressing??change, to which he was agreeable. Patient did have a PICC line placed, but will need to get that removed prior to leaving the hospital. We??discussed the importance of follow up and keeping in contact with the office. I wrote down all of the instructions and gave them to him personally.??Tolerating an oral diet??well. Voiding without difficulty. Denied a BM at this time. No other orthopedic concerns. All questions asked and answered.?? Objective Vitals & Measurements T:??98.3?F?? TMIN:??98.1?F?? TMAX:??98.8?F?? HR:??72??(Peripheral)?? RR:??16?? BP:??115/59?? SpO2:??96%?? Physical Exam Physical Exam Gen: Patient awake and alert, laying in bed eating breakfast, NAD ?? RLE:??Hip dressing??C/D/I, removed for exam. Inicisions look well without drainage erythema or warmth? New DSD placed ?Thigh with moderate soft edema, mild tenderness to palpation laterally ?Calf supple/ nontender ?+DF/PF ? Able to actively flex and extend all toes ?Palpable DP pulse ? Sensation to light touch grossly intact Diagnostic Results ?Diagnostic Results ?Culture/Event_id: ?Tissue/Biopsy Culture/[id number]?Collect date: ?03/20/23 12:20 ?Result Status: ?Preliminary ?Result Date: ?03/21/23 10:05 ?SPECIMEN DESCRIPTION : HIP ??TISSUE ??ABSCESS ?SPECIAL REQUESTS : NONE ?GRAM STAIN : 4+ POLYMORPHONUCLEAR LEUKOCYTES ?1+ GRAM POSITIVE COCCI ?CRITICAL VALUE CALLED AND VERIFIED BY READBACK FOR: ?GRAM STAIN [place] EN [id number], [facility], 03/20/23 AT 1827 BY TECH [id number] ?CULTURE : 2+ STAPHYLOCOCCUS AUREUS. ??This isolate was identified using Maldi-TOF ? system ?REPORT STATUS : ?? PRELIMINARY REPORT ? Assessment/Plan ??48 year old male??POD #2 s/p Incision and drainage of right hip deep abscess with excision of skin, subcutaneous tissue and fascia and muscle, Placement of antibiotic beads with vancomycin and Stimulan. ?- OOB with PT, WBAT??on the RLE ?- Care per primary team ?- Pain control per primary team ?- Encourage IS/ deep breathing ?- DVT prophylaxis:??Heparin ?- Bowel meds PRN constipation ?- Apply Ice to Right hip PRN for swelling ? - Appreciate ID recs: Patient??leaving AMA ?- Dressing changed today. Leave surgical dressing in place until follow up ?- DC planning:??Follow up with Dr Hernandez in 10 days ? - please call [phone] to schedule follow??up appointment and with questions after discharge ?? * Torrie Hare MD: PERFORM, MODIFY, MODIFY Event Display: Progress Note Hospital Authored Date: Patient: ??GEMA BASSETT ? Age:??48 Years?Sex:??Male?:??1975?? Subjective ID was consulted on 03/20 for right hip osteomyelitis and prosthetic joint infection. He had a right hip I/D and tissue debridement on 03/20, hardware was left intact. Superficial wound culture growing MSSA and Deep wound cultures growing both MSSA and MRSA, MRSA resulted this morning at 11:20 AM. Blood cultures from 03/19 x2 NG for 72 hours. ?? WBC remains normal at 6.5, no diff ordered. No acidosis and he has ongoing post op anemia that's stable in 9s. Ongoing chronic thrombocytopenia 2/2 cirrhosis, today is 74. He remains afebrile and without signs of sepsis. On my evaluation he declines chest pain, SOB, abdominal pain, fevers, sweats, chills, or anorexia. No adverse reactions to current antibiotics of Zosyn and Vancomycin. He was agreeable to PICC and said he would stay as long as we needed him to. He had many questions about coordination of home nursing services which I explained would be coordinated between him, [facility] and case management. He was satisfied with this. ?? Later on we were informed by primary team that he was adamant about leaving AMA. PICC line was placed in the morning but had to be removed prior to AMA discharge due to ongoing IV drug use. Review of Systems Review of systems??completed and is negative except for as stated in HPI. Objective Measurements?? Height: 175 cm (10/09/23) Weight: 77.5 kg (03/20/23) Dry Weight: 77.5 kg (03/20/23) Body Mass Index:??25.31 kg/m2??High (03/20/23) ? Vital Signs?? Temperature: 98.3 DegF (03/22/23 06:50:00) Temperature Route: Oral (03/22/23 06:50:00) Pulse Rate: 72 bpm (03/22/23 06:50:00) Respiratory Rate: 16 br/min (03/22/23 10:55:00) Systolic Blood Pressure: 115 mm Hg (03/22/23 07:50:00) Diastolic Blood Pressure: 59 mm Hg (03/22/23 07:50:00) Blood pressure sites: Arm, right (03/21/23 15:41:00) Mean Arterial Pressure: 78 mm Hg (03/22/23 06:50:00) Pulse Pressure: 56 mm Hg (03/22/23 06:50:00) Oxygen Saturation: 96 % (03/22/23 06:50:00) Mode of Delivery (Oxygen): Room air (03/22/23 06:50:00) Early Warning Score: 0 (03/22/23 13:33:09) ? Intake/Output? 03/19 16:17 03/22 07:00 03/21 07:00 03/20 07:00 03/19 07:00 ?? 03/22 13:35 03/22 13:35 03/22 06:59 03/21 06:59 03/20 06:59 Intake ? 2360 ?480 ? 1000 ?200 ?680 Output ? 5850 ?0 ? 2850 ? 2150 ?850 Net Total ?-3490 ?480 ?-1850 ?-1950 ? -170 ? Physical Exam General: No acute distress, comfortable, nontoxic, nondiaphoretic. HEENT: Normocephalic, atraumatic. Sclera anicteric, no conjunctival injection or eye discharge. Moist mucous membranes, oropharynx clear without erythema or exudate. Neck: Supple, full range of motion, trachea midline, no cervical lymphadenopathy. Cardiovascular: Heart regular rate and rhythm, S1 and S2 heard, no murmurs appreciated. Radial pulses 2+ bilaterally. Capillary refill < 2 seconds. Pulmonary: Lungs clear to auscultation bilaterally, good air movement, good effort without accessory muscle use. Abdomen: Soft, nondistended, nontender. Normal bowel sounds appreciated. Extremities: No cyanosis or edema. Right hip wound closed, well healing with james in place. Minimally tender to palpation. No expressed purulence or drainage. No surrounding erythema. Skin: Warm and dry. No rash. _ Inpatient Medications Medications (36) Active SCHEDULED: (18) Amlodipine 5 mg Tablet (amLODIPine 5 mg oral tablet) ??5 mg, By Mouth, Daily Calcium Citrate 315mg / Vit D 250IU (Citracal Maximum + Vitamin D Tablet) ??315 mg 1 tablet, By Mouth, Daily Docusate Sodium 100 mg Capsule (Colace Capsule) ??100 mg 1 capsule, By Mouth, 2 times a day Fluticasone Propionate 50mcg/inh Nasal [place] (fluticasone 50 mcg/inh nasal spray) ??50 mcg 1 sprays, Nares, Both, 2 times a day Folic Acid 1 mg Tablet (folic acid 1 mg oral tablet) ??1 mg, By Mouth, Daily Gabapentin 300 mg Capsule (gabapentin 300 mg oral capsule) ??300 mg, By Mouth, Daily at bedtime Heparin 5000 units/mL Inj (1 mL) (Heparin Inj) ??5,000 units 1 mL, Subcutaneous Injection, 2 times a day Heparin Lock Flush 50 units / 5 mL (Heparin Flush 10 units/mL Inj) ??50 units 5 mL, IV Push, Daily Lactulose 20 Gm/30mL Syrup (Lactulose) ??13.3333 Gm 20 mL, By Mouth, 2 times a day Magnesium Oxide 400 mg Tablet (magnesium oxide 400 mg oral tablet) ??400 mg, By Mouth, 2 times a day NaCl 0.9% Flush 3ml (NaCL 0.9% Flush) ??3 mL, IV Push, Every 8 hours NaCl 0.9% Flush 3ml (NaCL 0.9% Flush) ??5 mL, IV Push, Daily Pantoprazole 40 mg EC Tablet (pantoprazole 40 mg oral delayed release tablet) ??40 mg, By Mouth, Daily Piperacillin/Tazobactam 3.375 Gm Inj (Zosyn Extended IVPB) ??3.375 Gm, IVPB, Every 8 hours Pyridoxine 50 mg Tablet (Vitamin B6 50 mg oral tablet) ??50 mg, By Mouth, Daily Rifaximin 550 mg Tab (Xifaxan 550 mg oral tablet) ??550 mg, By Mouth, 2 times a day Trazodone 50 mg Tablet (traZODone 50 mg oral tablet) ??100 mg, By Mouth, Daily at bedtime Vancomycin 1 Gm / D5%W 200 mL (Vancomycin IVPB) ??1,000 mg 200 mL, IVPB, Every 12 hours CONTINUOUS: (0) PRN: (18) Al hydroxide/Mg hydroxide/simethicone 200 mg-200 mg-20 mg/5 mL Susp UD (Maalox Plus Liquid) ??30 mL, By Mouth, Every 4 hours Chloraseptic Lozenge ??1 lozenge, By Mouth, Every 6 hours Dextromethorphan-Guaifenesin 20 mg-200 mg/10 mL Liqu UD (Robitussin DM Liquid) ??10 mL, By Mouth, Every 4 hours Docusate Sodium 100 mg Capsule (Docusate Sodium Capsule) ??100 mg 1 capsule, By Mouth, 2 times a day Heparin Lock Flush 50 units / 5 mL (Heparin Flush 10 units/mL Inj) ??50 units 5 mL, IV Push, Every hour HYDROmorphone 2 mg Tablet (Dilaudid 2 mg oral tablet) ??2 mg, By Mouth, Every 4 hours HydrOXYzine HCL 10mg Tablet (hydrOXYzine hydrochloride 10 mg oral tablet) ??20 mg, By Mouth, 2 times a day Magnesium Hydroxide 8% Susp UD (Milk of Magnesia Liquid) ??30 mL, By Mouth, Daily Melatonin 3 mg Tablet (Melatonin Tablet) ??3 mg, By Mouth, Daily at bedtime Melatonin 3 mg Tablet (melatonin 3 mg oral tablet) ??3 mg, By Mouth, Daily at bedtime MorPHINE 2 mg Inj Syringe (MorPHINE Inj) ??5 mg, IV Push Slowly, Every 3 hours NaCl 0.9% Flush 3ml (NaCL 0.9% Flush) ??3 mL, IV Push, Every 8 hours NaCl 0.9% Flush 3ml (NaCL 0.9% Flush) ??3 mL, IV Push, Every 8 hours NaCl 0.9% Flush 3ml (NaCL 0.9% Flush) ??5 mL, IV Push, Every hour nalOXONE ??400mcg/mL Inj (nalOXONE Inj) ??0.04 mg 0.1 mL, IV Push, Every 5 minutes Polyethylene Glycol 17 Gm Powder (MiraLax Powder) ??17 Gm 1 pack/packet, By Mouth, Daily Senna Tablet ??8.6 mg 1 tablet, By Mouth, 2 times a day Simethicone 80 mg Chewable Tablet (Simethicone Tablet) ??80 mg, Chew, 3 times a day ? 72 Hour Antibiotic History Active Antibiotics Calendar Day Last Administered First Administered Rifaximin??550 mg, By Mouth, 2 times a day ?3 03/22/2023 07:50 03/20/2023 00:39 Vancomycin??1,000 mg, 200 mL, 200 mL/hr, IVPB, Every 12 hours ?3 03/22/2023 03:53 03/20/2023 02:12 Piperacillin-Tazobactam??3.375 Gm, 25 mL/hr, IVPB, Every 8 hours ?3 03/22/2023 03:53 03/20/2023 04:06 ? Stopped Antibiotics Stop Date/Time Last Administered First Administered Vancomycin??1 Gm, 200 mL, 200 mL/hr, IVPB, Once 03/19/2023 14:11 03/19/2023 14:11 03/19/2023 14:11 ? Results Recent Labs BLOOD COUNT & DIFF WBC 6.5 k/mm3 ()?? 03/22/2023 04:27 RBC 3.15 m/mm3 (Low)?? 03/22/2023 04:27 Hgb 9.7 Gm/dL (Low)?? 03/22/2023 04:27 Hct 28.7 % (Low)?? 03/22/2023 04:27 MCV 91.1 femtoliters ()?? 03/22/2023 04:27 MCH 30.8 pg ()?? 03/22/2023 04:27 MCHC 33.8 g/dL ()?? 03/22/2023 04:27 Platelet Count 74 k/mm3 (Low)?? 03/22/2023 04:27 RDW-SD 45.8 femtoliters ()?? 03/22/2023 04:27 MPV 10.0 femtoliters ()?? 03/22/2023 04:27 Nucleated RBC (Automated) 0.0 #/100 WBC'S ()?? 03/22/2023 04:27 Abs. NRBC 0.0 k/mm3 ()?? 03/22/2023 04:27 ?? CHEM GENERAL Sodium 139 mmol/L ()?? 03/22/2023 04:27 Potassium 4.0 mmol/L ()?? 03/22/2023 04:27 Chloride 108 mmol/L (High)?? 03/22/2023 04:27 Bicarbonate Level 22 mmol/L ()?? 03/22/2023 04:27 Anion Gap 9 ()?? 03/22/2023 04:27 Glucose Level 113 mg/dL (High)?? 03/22/2023 04:27 BUN 8 mg/dL ()?? 03/22/2023 04:27 Creatinine-Blood 0.6 mg/dL (Low)?? 03/22/2023 04:27 Estimated GFR Creatinine 116 ML/MIN/1.73 M2 ()?? 03/22/2023 04:27 Calcium 8.3 mg/dL (Low)?? 03/22/2023 04:27 Magnesium 1.9 mg/dL ()?? 03/22/2023 04:27 ?? URINE OTHER Est Creatinine Clearance 146.80 mL/min ()?? 03/22/2023 05:38 ? Blood Glucose Trend Glucose Level:??113 mg/dL??High (03/22/23 04:27:00) ? Urinalysis Est Creatinine Clearance: 146.8 mL/min (05:38) ?? Microbiology ?? Wound Superficial Culture W/ Gram Smear?? Completed?? Source: Swab Body Site: Hip Right Collected Dt/Tm: 03/19/2023 09:20 Last Updated Dt/Tm: 03/19/2023 09:48 ?SPECIMEN DESCRIPTION : SWAB HIP RTSPECIAL REQUESTS : NONEGRAM STAIN : NO CELLS OR ORGANISMS SEENCULTURE : 3+ STAPHYLOCOCCUS AUREUS. ??This isolate was identified using Maldi-TOF ? system These AST results were performed on the Vitek 2 ID and AST ? systemREPORT STATUS : FINAL 03/21/2023ORGANISM ? 3+ STAPHYLOCOCCUS AUREUS. ??This isolate was ? identified using Maldi-TOF system These AST results were performed on the Vitek 2 ID and AST systemMETHOD ? MIN. INHIB. CONC. (MCG/ML)CIPROFLOXACIN ?SUSCEPTIBLECLINDAMYCIN ?SUSCEPTIBLEERYTHROMYCIN ? SUSCEPTIBLEINDUCIBLE CLINDAMYCI NEGATIVELEVOFLOXACIN ? SUSCEPTIBLEOXACILLIN ?SUSCEPTIBLERIFAMPIN ? SUSCEPTIBLERIFAMPIN ? RIFAMPIN SHOULD NOT BE USED ALONE FOR ANTIMICROBIALRIFAMPIN ?THERAPY.TETRACYCLINE ? RESISTANTTRIMETH/SULFAMETHOX ??SUSCEPTIBLEVAN COMYCIN ? SUSCEPTIBLE ? Blood Gases?? No qualifying data available. ?? Assessment/Plan Mr. Bassett is a 48 yo??M with PMH of alcoholic cirrhosis, IV heroin and cocaine use, tobacco use,alcohol dependence, esophageal varices s/p TIPS, frequent hepatic encephalopathy on lactulose and rifaximin, peripheral neuropathy,??ANA LUISA, anxiety, depression, who was admitted for right hip osteomyeli tis and prosthetic joint infection. ?? #Right hip osteomyelitis??and prosthetic joint infection 2/2 MRSA and MSSA Imaging consistent with osteomyelitis and hardware involvement. He received I/D and??tissue debridement on 03/20, placement of Vancomycin 2 gram beads into right hip,??with superficial and deep wound cultures growing MSSA and MRSA. Hardware was left intact with plan for removal if he had clinical deterioration.?? Patient has been counseled by ID and primary team about severity of infection, potential loss of functionality or of limb entirely if his infection is not adequately controlled. Psychiatry was consulted and he was deemed to have capacity to make all medical decisions and leave AMA. He had a PICC placed on 03/22 in the morning but he quickly wanted to leave AMA right after placement. He was counseled on inadequate coverage of his infection without IV antibiotics and the dangers of leaving AMA including sepsis, limb loss, shock and but he still wanted to leave. PICC had tawanda removed due to ongoing IV drug use and AMA discharge before establishment of adequate nursing care. ?? Recommendations: - Discontinue Zosyn - If staying the best regimen would be IV vancomycin dosed per renal function and Rifampin 600 mg QD x 6 weeks given hardware involvement, followed by lifelong suppression with doxycycline given intact hardware - If he does leave AMA, can use oral Doxycycline 100 mg BID + Rifampin 600 mg QD x 6 weeks, followed by lifelong suppression with doxycycline - this regimen is not ideal and raises risk of inadequately treated infection which the patient is aware of - Per Antimicrobial stewardship it is okay to??start rifampin??with concurrent use of??home rifaximin to prevent hepatic encephalopathy - Follow up with ID clinic has been scheduled for 04/[address] Banerjee, CBC and CMP ordered to be done prior to this visit, patient is aware of blood work and visit ?? Thank you for the consult. If patient is readmitted, [place] [phone]. ?? Torrie Hare MD Medicine-Pediatrics PGY3 Pager # [phone] Available on [facility] ?? Please excuse any errors in wording or grammatical mistakes in the note as this was transcribed using dictation.? This note is not final until signed by the attending physician.?? The patient was seen and discussed with attending physician, Dr. Lozano. * Blake LEE, José Manuel Allan S: PERFORM Event Display: Progress Note Hospital Authored Date: Unable to see pt. as he signed out AMA. He was discharged with a prescription of doxycycline plus rifampin. Will try to arrange outpatient ID f/u for antibiotic management. * Eloina Fuentes RN: PERFORM, SIGN, VERIFY Event Display: Progress Note Hospital Authored Date: Patient: GEMA BASSETT Age: 48 years Sex: Male : 1975 Associated Diagnoses: None Author: Eloina Fuentes RN Findings Narrative/Incidental Pt A and O x 3. very impulsive, does not follow direction. R hip infection from abcess and multiplefalls. pt is legally blind. has history of substance abuse disorder. CIWA protocol. pt appears veryanxious about being in the hospital. he states his mother is sick and needs to see her today. He was educated on the risks of not finishing the full course of IV antiobitics. He stated i dont care if I , I need to lock my house. social work was present for education with nurse and attending.jacindasch note stated the pt is of sound mind to make decisions. meds given as ordered. voiding cyu in urinal and BR. pt is not complying with fall precautions. heparin sub q for dvt. assist x 1 with walker. PICC line placed per dr. alejandro. pt signed AMA form and currently waiting for PICC line removalbefore pt leaves AMA. Discharge Information Rehabilitation Discharge : Rehab Discharge Index 03/22/2023 9:01 EDT Walker: distance >50 03/21/2023 8:22 EDT Comments on treatment indicated adls funclt mob safety pt ed Full chart review completed Yes Hospital course Hospital course 03/21/2023 7:54 EDT Comments on treatment indicated 48 y/o M adm c open wound and discharge at [facility]. Now s/p InterTAN c Dr. Hernandez on 03/20. PT for balance, strengthening, bed mobility, transfers c RW, amb c RW. Rec home c services. (Modified) Walker: distance >50 Distance pt will ambulate 150' c RW Full chart review completed Yes Hospital course Hospital course Plan of care PT Gait training, Transfer training, Therapeutic exercise, Functional Activities, Balance training, Neuromuscular education Consult note * Claritza Welsh MD: MODIFY, MODIFY, MODIFY, MODIFY, MODIFY, MODIFY, PERFORM Event Display: Consultation Note Authored Date: Patient: ??GEMA BASSETT ? Age:??48 Years?Sex:??Male?:??1975?? History of Present Illness Consult Information Referring Provider:??Peyman Abbott MD Consulting Attending:??Elzbieta Guthrie MD Sources of Information: patient, documentation Reason for Consultation: determine capacity, patient with significant joint infection wants to leave AMA, questionable insight Rest Room Maid: N/A ?? HPI Gema is a 48-year-old male with legal blindness (hereditary syndrome), history of unspecified depressive and anxiety disorders, self-reported PTSD, and multiple substance use disorders including tobacco, alcohol, cocaine, and opiates who presented to [facility] on 03/19 for discharge coming from right hip wound. Last year he underwent prosthetic hip joint replacement but was lost to follow up. He reportedly fell last week (has frequent falls), and a few days ago noticed discharge coming from the hip wound. He was found to have an abscess and??concern for osteomyelitis, he underwent I&D withlocal antibiotic beads placed yesterday, is also on IV abx. Team is awaiting final cultures from the tissue sample to guide antibiotic therapy, with plan to place PICC line for pt to continue IV abx in outpatient setting, will also need home nursing set up. Patient reportedly expressed wanting to leave AMA, so psychiatry consult was placed for capacity assessment. ?? Gema is seen this morning in his room, sitting comfortably in jaylan chair watching TV. He reports his mood is alright, but expresses frustration at [facility] and the staff here in general giving him the runaround and cachil dehe jerking , referring to what he perceives to be lack of communicationregarding his treatment plan. He chuckles and tells me that next time he will ask to go to [facility]. When asked about his desire to leave [facility], he tells me that he found out his mother was admitted for aheart issue and has since been discharged, so he wanted to leave to go see her and make sure she isokay, as he is worried about her as well as his father's declining health. Regarding his current medical status, he tells me that he had a neighbor call for medical attention for his hip, as he noticed neris goo seeping out of his hip and knew something was not right. He knows he has an infectionin his hip joint, tells me the surgeons?? scraped everything out yesterday, and now he is on a super antibiotic that he knows he can only get through IV, not through pills. He knows the plan is tohave him sent home with an IV so he won't need to stay in the hospital for 1-2 months, but he does not know what the hold up is. He is aware that he will need a nurse to manage the antibiotics/IV at home, as he relates, I can't do the IV and all this myself! . Reassured him that VNA is the plan.He knows that if he were to leave the hospital without the IV abx set up, he could lose a leg or even if the infection got worse. However, he tells me he is agreeing to stay in the hospital as he wants to get better, he just wants to know a more definitive timeline about when the PICC line will be placed. Advised him to speak with primary team about timeline/barriers. ?? Past Psychiatric History Diagnoses: depressive disorder, anxiety disorder, PTSD per pt, substance use disorders (cocaine, opiates, alcohol) Hospitalizations: [facility] in 2016 for SI and delusions after an argument with father -- pt says it was related to alcohol intoxication/withdrawal as well as hepatic encephalopathy as he was off his lactulose at the time Home meds: no scheduled psychotropics. takes trazodone, hydroxyzine, melatonin, and gabapentin Prior trials: zolpidem Outpatient providers: therapist Darlyn??and ?psychiatrist at [facility], telehealth Suicidality/NSSIB: denies ?? Social History lives in an apartment in [place], has [facility] with [place] [facility], parents live locally with whom he is close. , has a 14yo son who lives in [facility]. 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 droppedout of high school related to drug use. 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 trauma hx includes finding brother after overdose. ?? Substance Use History hx cocaine, heroin, MJ use, tried LSD in high school former tobacco use alcohol abuse, started drinking in teens, has been in treatment (detox, IOP at [facility], ). says lastdrink was a few days ago but only half a beer to help with the hip pain, prior to that has been sober for almost 3 mos ?? Family Psychiatric/Substance??Use History alcoholism, opiate abuse - brother alcoholism - father alcoholism - maternal and paternal grandfathers ?? Review of Systems All systems reviewed and negative except as mentioned in Subjective/HPI. ?? Objective Vital Signs?? Temperature: 98.5 DegF (03/21/23 15:41:00) Temperature Route: Oral (03/21/23 15:41:00) Pulse Rate:??94 bpm??High (03/21/23 15:41:00) Respiratory Rate: 18 br/min (03/21/23 15:41:00) Systolic Blood Pressure: 120 mm Hg (03/21/23 15:41:00) Diastolic Blood Pressure: 72 mm Hg (03/21/23 15:41:00) Blood pressure sites: Arm, right (03/21/23 15:41:00) Mean Arterial Pressure: 88 mm Hg (03/21/23 15:41:00) Pulse Pressure: 48 mm Hg (03/21/23 15:41:00) Oxygen Saturation: 99 % (03/21/23 15:41:00) Mode of Delivery (Oxygen): Room air (03/21/23 15:41:00) Early Warning Score: 4 (03/21/23 15:41:59) ? Physical Exam Mental Status Exam Appearance:??appears stated age, fair hygiene, recumbent in jaylan chair watching TV Attitude/Behavior: calm, cooperative, casual/familiar demeanor,??intermittent eye contact (pt visually impaired at baseline) Psychomotor: no agitation or slowing MSK: no tic or tremor Speech: clear, articulate, not pressured, not latent Mood:?? it's alright Affect:??euthymic, reactive,??appropriate to context Thought process: tangential at times requiring redirection back to topic/question Thought content:??appropriate to topic, treatment concerns, future-oriented, no delusional content elicited ? SI: denies ? HI: denies Perception:??does not appear internally preoccupied ? AH: denies ? VH: denies Cognition: alert, oriented x4 Insight: fair Judgment:??fair Impulsivity: low Assessment/Plan Gema is a middle-aged male, legally blind, with history of unspecified depressive and anxiety disorders and??several substance use disorders in various stages of remission, who is currently admitted for management of an infected prosthetic hip joint for which he sought medical attention. Psychiatry is consulted for capacity assessment as patient wanted to leave AMA at one point. At the time ofthis evaluation, the patient meets Kimberly and Grisso criteria for decision-making capacity to leave AMA -- he demonstrated understanding of his medical condition and the proposed treatment; he expressed his previous desire to leave the hospital (though he had already changed his mind and agreed to stay by the time I assessed him, as he received additional education about the plan); he providedreasonable rationale for his desire to leave the hospital (he is worried about his mother's heart condition and wants to be with her); and he was able to appreciate the risks of leaving without definitive treatment including the risks of morbidity and mortality. Again, fortunately he is agreeable to staying until the PICC line is placed and home nursing care is finalized. ?? Diagnoses Psychological factors affecting medical condition Depressive disorder, unspecified, by history Alcohol use disorder, severe, in early remission ?? Recommendations - Patient deemed to have capacity to make decisions related to his current treatment including leaving AMA if he so chooses. Fortunately at this time he is agreeable to staying for PICC line placement and arranging nursing care; he would appreciate clarification re: timeline and current barriers (e.g., awaiting final cx results), which seems to be a??source of frustration. Should his mental status change, however, his decision-making capacity would then need to be re-assessed. - No psychiatric contraindication to discharge, no acute decompensation, pt can f/u with his established outpatient providers at [facility]. ?? Recommendations relayed to primary team via [facility], Peyman Abbott MD The psychiatry service??will sign off. Please reach out with any questions or concerns at??pager [phone] ?? Discussed with attending, MD Claritza Macias MD Psychiatry PGY-IV?? Histories Allergies Allergies ?(Active and Proposed Allergies [...] the past and had GI side effects ?? Past Medical History AC joint derangement Alcohol abuse Alcoholic hepatitis, [...] IBRAHIMA spring 2015 Vitamin D insufficiency ?? Past Surgical History TIPS - Transjugular intrahepatic portosystemic shunt: 03/18/15 EGD: 03/14/15 EGD: 11/03/14 Laryngoscopy in 1988 Medications Home Medications Acamprosate (acamprosate 333 mg oral delayed release tablet)?1?tab(s)?333?Milligram?By Mouth?3 times a day?for 14?Days Amlodipine (amLODIPine 5 mg oral tablet)?1?tab(s)?By Mouth?Daily?^1R1. Baclofen (baclofen 10 mg oral tablet)?See Instructions?TAKE ONE TABLET BY MOUTH THREE TIMES ADAY ^1R1,1R2,1R4 Calcium And Vitamin D Combination (calcium (as carbonate)-vitamin D 500 mg-400 intl units oral tablet)?1?tab(s)?By Mouth?Daily?^1R1. Diclofenac Topical (diclofenac 1% topical gel)?See Instructions?APPLY TOPICALLY TO AFFECTED AREA(S) FOUR TIMES A DAY NEEDED FOR PAIN (BULK) Durable Medical Equipment (Compression Stockings)?See Instructions?surgical, calf length 20-30 mm HgM79.89M79.606 Durable Medical Equipment (R aircast ankle-stirrup support brace)?See Instructions?Dx: R inversion ankle [id number] Durable Medical Equipment (Walker)?See Instructions?2 wheeled Walker.Dx: [...] Mouth?Daily?for 90?Days?^1R1. Paroxetine (PARoxetine 10 mg oral tablet)?1?tablet?By Mouth?Daily?^1R1. Pyridoxine (Vitamin B6 50 mg oral tablet)?1?tablet?By Mouth?Daily?R1. Rifaximin (Xifaxan 550 mg oral tablet)?1?tab(s)?By Mouth?2 times a day?VIAL. Spironolactone (spironolactone 25 mg oral tablet)?25?Milligram?1?tablet?By Mouth?Daily Thiamine (Vitamin B1 100 mg oral tablet)?1?tablet?By Mouth?Daily Trazodone (traZODone 50 mg oral tablet)?2?tablet?By Mouth?Daily at bedtime?^2R4. Ubiquinone (Co Q-10 100 mg oral capsule)?See Instructions?TAKE 1 CAPSULE BY MOUTH FOUR TIMES DAILY ? Inpatient Medications Medications (32) Active SCHEDULED: (16) Amlodipine 5 mg Tablet (amLODIPine 5 mg oral tablet) ??5 mg, By Mouth, Daily Calcium Citrate 315mg / Vit D 250IU (Citracal Maximum + Vitamin D Tablet) ??315 mg 1 tablet, By Mouth, Daily Docusate Sodium 100 mg Capsule (Colace Capsule) ??100 mg 1 capsule, By Mouth, 2 times a day Fluticasone Propionate 50mcg/inh Nasal [place] (fluticasone 50 mcg/inh nasal spray) ??50 mcg 1 sprays, Nares, Both, 2 times a day Folic Acid 1 mg Tablet (folic acid 1 mg oral tablet) ??1 mg, By Mouth, Daily Gabapentin 300 mg Capsule (gabapentin 300 mg oral capsule) ??300 mg, By Mouth, Daily at bedtime Heparin 5000 units/mL Inj (1 mL) (Heparin Inj) ??5,000 units 1 mL, Subcutaneous Injection, 2 times a day Lactulose 20 Gm/30mL Syrup (Lactulose) ??13.3333 Gm 20 mL, By Mouth, 2 times a day Magnesium Oxide 400 mg Tablet (magnesium oxide 400 mg oral tablet) ??400 mg, By Mouth, 2 times a day NaCl 0.9% Flush 3ml (NaCL 0.9% Flush) ??3 mL, IV Push, Every 8 hours Pantoprazole 40 mg EC Tablet (pantoprazole 40 mg oral delayed release tablet) ??40 mg, By Mouth, Daily Piperacillin/Tazobactam 3.375 Gm Inj (Zosyn Extended IVPB) ??3.375 Gm, IVPB, Every 8 hours Pyridoxine 50 mg Tablet (Vitamin B6 50 mg oral tablet) ??50 mg, By Mouth, Daily Rifaximin 550 mg Tab (Xifaxan 550 mg oral tablet) ??550 mg, By Mouth, 2 times a day Trazodone 50 mg Tablet (traZODone 50 mg oral tablet) ??100 mg, By Mouth, Daily at bedtime Vancomycin 1 Gm / D5%W 200 mL (Vancomycin IVPB) ??1,000 mg 200 mL, IVPB, Every 12 hours CONTINUOUS: (0) PRN: (16) Al hydroxide/Mg hydroxide/simethicone 200 mg-200 mg-20 mg/5 mL Susp UD (Maalox Plus Liquid) ??30 mL, By Mouth, Every 4 hours Chloraseptic Lozenge ??1 lozenge, By Mouth, Every 6 hours Dextromethorphan-Guaifenesin 20 mg-200 mg/10 mL Liqu UD (Robitussin DM Liquid) ??10 mL, By Mouth, Every 4 hours Docusate Sodium 100 mg Capsule (Docusate Sodium Capsule) ??100 mg 1 capsule, By Mouth, 2 times a day HYDROmorphone 2 mg Tablet (Dilaudid 2 mg oral tablet) ??2 mg, By Mouth, Every 4 hours HydrOXYzine HCL 10mg Tablet (hydrOXYzine hydrochloride 10 mg oral tablet) ??20 mg, By Mouth, 2 times a day Magnesium Hydroxide 8% Susp UD (Milk of Magnesia Liquid) ??30 mL, By Mouth, Daily Melatonin 3 mg Tablet (Melatonin Tablet) ??3 mg, By Mouth, Daily at bedtime Melatonin 3 mg Tablet (melatonin 3 mg oral tablet) ??3 mg, By Mouth, Daily at bedtime MorPHINE 2 mg Inj Syringe (MorPHINE Inj) ??5 mg, IV Push Slowly, Every 3 hours NaCl 0.9% Flush 3ml (NaCL 0.9% Flush) ??3 mL, IV Push, Every 8 hours NaCl 0.9% Flush 3ml (NaCL 0.9% Flush) ??3 mL, IV Push, Every 8 hours nalOXONE ??400mcg/mL Inj (nalOXONE Inj) ??0.04 mg 0.1 mL, IV Push, Every 5 minutes Polyethylene Glycol 17 Gm Powder (MiraLax Powder) ??17 Gm 1 pack/packet, By Mouth, Daily Senna Tablet ??8.6 mg 1 tablet, By Mouth, 2 times a day Simethicone 80 mg Chewable Tablet (Simethicone Tablet) ??80 mg, Chew, 3 times a day ? Results Recent Labs BLOOD COUNT & DIFF WBC 4.8 k/mm3 ()?? 03/21/2023 00:51 RBC 3.20 m/mm3 (Low)?? 03/21/2023 00:51 Hgb 9.6 Gm/dL (Low)?? 03/21/2023 00:51 Hct 28.5 % (Low)?? 03/21/2023 00:51 MCV 89.1 femtoliters ()?? 03/21/2023 00:51 MCH 30.0 pg ()?? 03/21/2023 00:51 MCHC 33.7 g/dL ()?? 03/21/2023 00:51 Platelet Count 98 k/mm3 (Low)?? 03/21/2023 00:51 RDW-SD 43.8 femtoliters ()?? 03/21/2023 00:51 MPV 10.4 femtoliters ()?? 03/21/2023 00:51 Nucleated RBC (Automated) 0.0 #/100 WBC'S ()?? 03/21/2023 00:51 Abs. NRBC 0.0 k/mm3 ()?? 03/21/2023 00:51 ?? CHEM GENERAL Sodium 133 mmol/L ()?? 03/21/2023 00:51 Potassium 4.6 mmol/L ()?? 03/21/2023 00:51 Chloride 106 mmol/L ()?? 03/21/2023 00:51 Bicarbonate Level 19 mmol/L (Low)?? 03/21/2023 00:51 Anion Gap 8 ()?? 03/21/2023 00:51 Glucose Level 191 mg/dL (High)?? 03/21/2023 00:51 BUN 10 mg/dL ()?? 03/21/2023 00:51 Creatinine-Blood 1.0 mg/dL ()?? 03/21/2023 00:51 Estimated GFR Creatinine 94 ML/MIN/1.73 M2 ()?? 03/21/2023 00:51 Calcium 8.6 mg/dL ()?? 03/21/2023 00:51 Magnesium 1.9 mg/dL ()?? 03/21/2023 00:51 ?? TOXICOLOGY/TDM Ethanol, Serum or Plasma NONE DETECTED mg/dL ()?? 03/20/2023 16:08 ?? URINE OTHER Est Creatinine Clearance 88.08 mL/min ()?? 03/21/2023 02:22 ? Abnormal Labs ?? BLOOD COUNT & DIFF ??Abs. NRBC ??0.0 k/mm3 () ??03/21/2023 00:51 ??Hct ??28.5 % (Low) ??03/21/2023 00:51 ??Hgb ??9.6 Gm/dL (Low) ??03/21/2023 00:51 ??Nucleated RBC (Automated) ??0.0 #/100 WBC'S () ??03/21/2023 00:51 ??Platelet Count ??98 k/mm3 (Low) ??03/21/2023 00:51 ??RBC ??3.20 m/mm3 (Low) ??03/21/2023 00:51 ??RDW-SD ??43.8 femtoliters () ??03/21/2023 00:51 ? CHEM GENERAL ??Bicarbonate Level ??19 mmol/L (Low) ??03/21/2023 00:51 ??Estimated GFR Creatinine ??94 ML/MIN/1.73 M2 () ??03/21/2023 00:51 ??Glucose Level ??191 mg/dL (High) ??03/21/2023 00:51 ? Note: Critical results are displayed in red. ? * Jerri LEE, Elzbieta Demarco: PERFORM Event Display: Consultation Note Authored Date: ATTENDING PSYCHIATRIST NOTE: ??On the day of service, ??Anitha presented this case to me. I reviewed the chart, interviewed the patient, and discussed the case with Dr. Welsh. ??I agree with the findings, impression, and recommendations as noted below. ?? 80 min spent reviewing chart, speaking with primary team, obtaining the HPI, examining patient, andcounseling the patient on??medical decision-making??and treatment options.?? * Terry Washington MD: PERFORM, SIGN, VERIFY Event Display: Consultation Note Authored Date: [id number] Patient: GEMA BASSETT Age: 48 years Sex: Male : 1975 Associated Diagnoses: None Author: Terry Washington MD INFECTIOUS DISEASES CONSULTATION NOTE Requesting Attending/Provider: Dr. Abbott Reason for Consult: Suspected right hip prosthetic joint infection Source of Information: CIS, patient History of Present Illness ([id number]: HPI ???4): This is a 48-year-old man with alcoholic liver cirrhosis and associated bleeding, newly blind who had suffered a right-sided intratrochanteric fracture for which she did undergo ORIF with InterTAN. Patient is an exceedingly poor historian and seems to have very poor insight into his medical condition. It seems that he was essentially lost to follow-up after his discharge back in May 2022 andhad been just living his best life without any notable complaints. Seems that he fell i, landing onhis right hip almost a week ago and thereafter noted that the wound had opened and had a draining sinus. After much coaching by friends and family patient presented to the emergency room for further evaluation imaging study was done in the emergency room the CT scan which showed findings concerningfor an infected collection extending from the hardware all the way to the skin surface with potential loosening of the canalicular screws as well as erosions over the greater trochanter concerning for osteomyelitis. Patient started empirically on vancomycin and Zosyn and now consulted for further recommendations. Would appear that primary team pending to take the patient to the OR, possibly todaypending availability. Past Medical and Surgical History: Patient with noted alcoholism and associated hepatic liver cirrhosis. Due to his significant esophageal varices the patient did undergo TIPS (done in 2014) and has been noted with several episodes ofhepatic encephalopathy. Also has associated peripheral neuropathy and some degree of hernia impairment. Further record review does seem to indicate anxiety and depression. As mentioned above patient did have right hip surgical intervention May 2022 with fracture and intramedullary eduardo. Furtherrecord review noted to patient with obstructive sleep apnea as well as negative Lyme Recent Antimicrobials: -Presently on vancomycin and Zosyn Medications: Reviewed Antimicrobial Allergies: No known antimicrobial allergies. Family History: No significant recurrent or chronic infectious diseases in the family Social History: Significant for alcohol abuse with associated liver cirrhosis. It seems that there might still be some issues with ongoing alcohol use drinking anywhere between 2, perhaps 3 sixpacks a day. Smokes about 0.5 to 1 packs/day but has decreased his smoking to about a quarter of a pack per day. There is documentation of previous IV heroin use, last used about a week or 2 ago. Denies anyother substance abuse Review of Systems Denies any fever, chills, visual disturbance, oral problems, hearing issues, chest pain, palpitations, shortness of breath, nausea, vomiting, diarrhea, problems with urination, decreased sensation orstrength in any extremities, easy bruising or swollen lymph nodes, joint pains, muscle aches, or any changes in weight or sensation of temperature. Mentions some discomfort over the hip after his fall with dark brown/white gunk coming from the wound. Physical Examination (33216: 2-7 organ systems or comprehensive single system exam; 60756/32795: 8 organ systems or comprehensive single system exam) .VitalsTemperature 98.9 (11:38) Systolic Blood Pressure 119 (11:38) Diastolic Blood Pressure 73 (11:38) Pulse 78 (11:38) SpO2 97 (11:38) Respiratory Rate 17 (11:38) GENERAL: In no acute distress HEENT: Anicteric, no subconjunctival petechiae, moist oral mucosa without lesions or thrush NECK: Neck supple, without cervical lymphadenopathy CARDIOVASCULAR: Not able to appreciate any murmurs, rubs, or gallops RESPIRATORY: Lungs clear to auscultation GASTROINTESTINAL: Non-distended, normoactive bowel sounds, non-tender GENITOURINARY: No CVAT MUSCULOSKELETAL: Without joint effusions, no tenderness over spine. Evaluation of the right hip shows previous surgical incision with a small spot over the superior aspect of the incision itself thatis open measuring about 0.7 to 1 cm in diameter. There is clear fluid coming from the wound and when I squeeze the surrounding tissues more fluid, somewhat turbid comes out, patient requested deferring wound probing with Q-tip SKIN: No diffuse rash present, no stigmata of infective endocarditis NEUROLOGICAL/PSYCH: A&Ox3, grossly intact, seems easily distracted and appears to have poor insight of his medical situation Results Review General results All Labs : LABORATORY 03/19/2023 9:40 EDT Sed Rate 36 mm/hr H C-Reactive Protein 2.5 mg/dL H 03/18/2023 21:39 EDT WBC 4.6 k/mm3 RBC 3.68 m/mm3 L Hgb 11.2 Gm/dL L Hct 33.9 % L MCV 92.1 femtoliters MCH 30.4 pg MCHC 33.0 g/dL Platelet Count 106 k/mm3 L Neut % 52.7 % Lymph % 30.8 % Stark % 12.6 % H Eos % 2.8 % Baso % 0.4 % Imm Gran 0.7 % Abs. Imm Gran 0.0 k/mm3 Sodium 138 mmol/L Potassium 3.9 mmol/L Chloride 106 mmol/L Bicarbonate Level 22 mmol/L Anion Gap 10 Glucose Level 97 mg/dL BUN 7 mg/dL Creatinine-Blood 0.7 mg/dL 11/05/2022 11:17 EDT Creatinine-Blood 0.8 mg/dL AST (SGOT) 30 units/L ALT (SGPT) 19 units/L Bilirubin, Total 1.1 mg/dL 11/03/2022 9:30 EDT Lyme Disease Ab Screen NEGATIVE Anaplasma PCR Not detected Ehrlichia PCR Not detected 10/26/2022 15:47 EDT Creatinine-Blood 0.8 mg/dL AST (SGOT) 47 units/L H ALT (SGPT) 27 units/L Bilirubin, Total 2.4 mg/dL H Result type: CT Ext Lower W/ Contrast Right Result date: March 19, 2023 10:58 EDT Result status: Auth (Verified) Result title: CT Ext Lower W/ Contrast Right Performed by: Caprice LEE, [facility] on March 19, 2023 11:22 EDT Verified by: Caprice LEE, [facility] on March 19, 2023 11:22 EDT Encounter info: [id number], [facility], Inpatient, 03/19/2023 - * Final Report * Reason For Exam Other: RESULT: CT Ext Lower W/ Contrast Right CT Ext Lower W/ Contrast Right Refer to EMR; Hx of Present Illness: R hip open wound X 1 week sustained after a fall. Pt stating his med nurse checked out the wound and noted it to be oozing . Has been using antibiotic cream onit. Denying fevers chil. Just wants antibiotics.; Reason: Other:; Clinical Question(s): Femur; Special Instructions: Fall, dehiscence of proximal surgical wound post InterTAN hardware right hip fract TECHNIQUE: Helical CT with contrast formatted in 3 planes. 100 cc of Omnipaque 300 was administeredintravenously. Weight-based protocol using automatic tube modulation was used to optimize exposure parameters. CTDIvol Body: 31.60 mGy, DLP Body: 1865 mGy*cm. COMPARISONS: None FINDINGS: Bones and joints: Patient is status post ORIF of right intertrochanteric fracture. There is lucencysurrounding the canalicular screws. There are cortical erosions along the greater trochanter on some images. Soft Tissues: There is a 4 x 4 x 2 cm loculated collection with a tract extending to the skin surface along the right hip laterally. It also appears to extend to the region of the greater trochanter.There is skin thickening with subcutaneous stranding. IMPRESSION: Findings are concerning for infected collection with extension to the skin surface and the greater trochanter with associated cellulitis. There is lucency surrounding the canalicular screws which maybe due to loosening or infection. There is erosion of a portion of the greater trochanter which is concerning for osteomyelitis. Recommend aspiration of these collection and laboratory evaluation. Additionally recommend 3 phase bone scan to rule out osteomyelitis. Microbiology: Culture/Event_id: Superficial Wound Culture/[id number] Collect date: 03/19/23 09:10 Result Status: Preliminary Result Date: 03/19/23 18:47 SPECIMEN DESCRIPTION : SWAB HIP RT SPECIAL REQUESTS : NONE GRAM STAIN : NO CELLS OR ORGANISMS SEEN REPORT STATUS : PRELIMINARY REPORT Impression and Plan Impression: This is a 48-year-old man with above-mentioned problems and comorbidities. Patient being evaluated because of suspected right hip hardware infection. Imaging study does seem to be highly compatible not only with a collection but also osteomyelitis and hardware involvement. Seems that orthopedic surgery trying to get the patient into the OR and there is some concerns that removing the eduardo might produce some issues so would appear they would attempt I&D and if that is not successful, further surgical interventions might be required. For now can continue present antibiotic therapy and monitor closely for response but awaiting cultures. Concern about the patient's lack of insight referring that he wanted to leave AMA. I attempted to explain the severity of his condition including need for surgical intervention and potential loss of functionality of the limb and perhaps the limb itself if the infection is not well controlled and hedoes not follow orthopedic surgery's instructions regarding its care. He seems somewhat more agreeable, perhaps patient should have a psych evaluation to ensure we can assess for capacity as well as helping with his understanding of his medical condition Recommendations: -Can continue present antibiotic therapy -Follow OR cultures -Length of therapy to be determined depending on surgical interventions, foresee at least 6 weeks of therapy (by possibly IV) and possible 3 months of oral suppression thereafter and even consideration of lifelong suppression depending on organisms identified. Thank you for the consultation. Infectious Diseases will continue to follow the patient with you. Disclaimer: This dictation was accomplished with use of [employer] voice recognition software, prone tomedical word misidentifications and grammatical errors. The physician does strive to identify and correct these, but some could still be present. Please do not hesitate to contact physician for clarifications. * Eveline uLdwig: MODIFY, MODIFY, MODIFY, MODIFY, PERFORM, MODIFY, MODIFY, MODIFY Event Display: Consultation Note Authored Date: Patient: ??GEMA BASSETT ? Age:??48 Years?Sex:??Male?:??1975?? Chief Complaint/Reason for Consult left hip wound/infection Consult was requested by Kory calderon PA-C under the direct supervision of??Dr. Reeder in the [facility] ED History of Present Illness Gema is a 48-year-old male??who presents to [facility] ED??for??wound to right hip after a fall??approximately 1 week ago.??He reports that the wound has been draining for approximately 1 day and he was recommended to??present to the ED for further evaluation by home VNA services. Remote history of right InterTAN by Dr. Hernandez in May 2022, denies??following up with [place] [facility] after surgery. ??States that he has not had any issues with his right hip since hospital dischargeafter initial injury.?He denies fever and chills. ??Denies increased pain??to the right hip.?? CT of the right hip demonstrated no acute fracture or dislocation. Patient receiving IV vancomycin and zosyn in the ED.??Orthopedic surgery??service was consulted for further evaluation and treatment recommendations. Review of Systems Denies fevers and chills. Denies chest pain. Denies shortness??of breath.?Denies other injuries or painful joints. ??All others as per HPI Physical Exam Vitals & Measurements T:??97.6?F?? HR:??87??(Peripheral)?? RR:??22?? BP:??138/73?? SpO2:??98%?? HT:??175??cm?? WT:??77.5??kg?? BMI:??25.31?? General: Patient evaluated in ED reclining chair, in NAD HEENT: Atraumatic, normocephalic Cardiac: Per ED provider Pulmonary: Per ED provider Abdomen: Per ED provider ?? Right upper extremity: Full, supple, nonpainful range of motion of shoulder, elbow, wrist and digits. ??No tenderness to palpation. ??Grossly neurovascularly intact. ?? Left upper extremity: Full, supple, nonpainful range of motion of shoulder, elbow, wrist and digits. ??No tenderness to palpation. Grossly neurovascularly intact. ?? Right lower extremity: Full, supple, non-painful range of motion of the hip, knee, foot and ankle. ??No tenderness to palpation. Calf supple and nontender. ??Appreciate??approximately??1 cm??circular??wound??at??the distal??third of the proximal surgical??incision??about right hip. ??Oozing, non-odorous, yellow sanguinous drainage appreciated. ??Appreciate well-healed??inferior surgical incision??about??the mid thigh. ??Active dorsiflexion and plantar flexion strength. ??Palpable DP and PT pulses. Sensation grossly intact to light touch. ?? Left lower extremity: Full, supple, non-painful range of motion of the hip, knee, foot and ankle. ??No tenderness to palpation. ??Calf supple and nontender. Active dorsiflexion and plantar flexion strength. ??Palpable DP and PT pulses. Sensation grossly intact to light touch. Assessment/Plan Impression: Right hip surgical incision wound with drainage ?? Plan:??Recommend the patient be admitted to the medical service. ??Orthopedics will follow. ??Preoperative medical??optimization and risk??stratification??is requested. ??Patient will be made n.p.o. after midnight tonight for possible surgery tomorrow. ??Recommend??weight-baring status, elevation, pain control and DVT prophylaxis. Patient is added to the orthopedic trauma surgery OR add on list with plan for surgical fixation once medically??optimized and when OR schedule allows. ??This was discussed with the patient who voiced understanding. ??Questions are asked and answered. ? Case will be discussed with??Dr Hernandez Problem List/Past Medical History Ongoing AC joint [...] spring 2015 Vitamin D insufficiency Procedure/Surgical History TIPS - Transjugular intrahepatic portosystemic shunt: 03/18/15 EGD: 03/14/15 EGD: 11/03/14 Laryngoscopy in 1988 Home Medications Acamprosate: 333 mg = 1 tablet, By Mouth, 3 times a day Amlodipine: 1 tablet, By Mouth, Daily, ^1R1. Baclofen: See Instructions, TAKE ONE TABLET BY MOUTH THREE TIMES A DAY ^1R1,1R2,1R4 Calcium And Vitamin D Combination: 1 tablet, By Mouth, Daily, ^1R1. Diclofenac Topical: See Instructions, APPLY TOPICALLY TO AFFECTED AREA(S) FOUR TIMES A DAY NEEDED FOR PAIN (BULK) Durable Medical Equipment: See Instructions, surgical, calf length 20-30 mm HgM79.89M79.606 Durable Medical Equipment (R aircast ankle-stirrup support brace): See Instructions, Dx: R inversion ankle [id number] Durable Medical Equipment: See Instructions, 2 wheeled Walker.Dx: Falls, gait abnormality Durable Medical Equipment (Urinal) (Urinal): See Instructions, Dx: Cirrhoisis, ambulatory dysfunction, incontinency Durable Medical Equipment: See Instructions, Aduld Adjustable Pullups Sz L/XLuse 6 daily per 6 wk periodLON 99 mon39.48 Durable Medical Equipment (Disposable Underpads ?? n39.498): See Instructions, 2 daily per 6 wk period Durable Medical Equipment: See Instructions, Use as needed Fluticasone Nasal: See Instructions, USE 1 SPRAY(S) INTO EACH NOSTRIL TWICE A DAY Folic Acid: 1 tablet, By Mouth, Daily, R1. Furosemide: 1 tablet, By Mouth, Daily, R1. Furosemide: 20 mg = 1 tablet, By Mouth, Every other day Gabapentin: 300 mg = 1 capsule, By Mouth, Daily at bedtime, note dose/frequency change HydrOXYzine: 2 tablet, By Mouth, 2 times a day, PRN ( NEEDED FOR ANXIETY (VIAL)) Lactulose: 15 mL, By Mouth, 2 times a day Lidocaine Topical: 1 patch, Topically, Daily, remove patches after 12 hoursNSAIDS contraindicated High dose tylenol contraindicatedremove patches after 12 hoursNueropathy Magnesium Oxide: See Instructions, TAKE 1 TABLET BY MOUTH TWICE A DAY^1R1,1R4 Melatonin: 1 tablet, By Mouth, Daily at bedtime, PRN ( NEEDED FOR INSOMNIA (PACKAGE IN TRAY)^1R4) Miscellaneous Rx (Eucerin Original Healing Cream): See Instructions, apply 2 x a day for dry skindx: eczema ??L30.9 Miscellaneous Rx (CALCIUM + D 500/400 TABS): 1 tablet, By Mouth, Daily, ^1R2. Miscellaneous Rx (CALCIUM + D 500/400 TABS): 1 tablet, By Mouth, Daily, ^1R2. Miscellaneous Rx (CALCIUM + D 500/400 TABS): See Instructions, TAKE ONE TABLET BY MOUTH EVERY DAY ^1R2 Miscellaneous Rx (CALCIUM + D 500/400 TABS): 1 tablet, By Mouth, Daily, ^1R2. Multivitamin: 1 tablet, By Mouth, Daily Pantoprazole: 1 tablet, By Mouth, Daily, ^1R1. Paroxetine: 1 tablet, By Mouth, Daily, ^1R1. Pyridoxine: 1 tablet, By Mouth, Daily, R1. Rifaximin: 1 tablet, By Mouth, 2 times a day, VIAL. Spironolactone: 25 mg = 1 tablet, By Mouth, Daily Thiamine: 1 tablet, By Mouth, Daily Trazodone: 2 tablet, By Mouth, Daily at bedtime, ^2R4. Ubiquinone: See Instructions, TAKE 1 CAPSULE BY MOUTH FOUR TIMES DAILY Allergies NSAIDs Tylenol??(Cirrhosis) aspirin??(Hx GI Bleed) ibuprofen??(Hx of GI Bleed) Social History Alcohol Use: Past. Frequency: Several times per day. Other: 18 beers per day. Previous treatment: Inpatient. Employment/School Status: Unemployed. 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 Exercise Exercise type: Walking. Substance Abuse Use: Current. Type: Cocaine, Heroin. Tobacco Use: 10 or more cigarettes (1/2 pack or more)/day in last 30 days. Patient??lives on a first floor apartment, no stairs at home. ??Lives independently. ??He walks with a??rolling walker. ??He??reports??1 ??tall approximately 18 ounces??beer??last week. ??Denies history of alcohol withdrawal.?? Reports current??tobacco use, approximately??4 to 5 cigarettes/day.??Reports??IV??heroin use, last use approximately 1 week ago. ??Denies additional??illicit drug use including PCP, cocaine??and fentanyl.?? Denies marijuana use. Family History Mother: Hypertension Father: Hyperlipidemia; Hypertension Brother: Alcoholism Brother: Alcoholism Pat. Grandfather: Diabetes mellitus type II; Throat cancer ? 27-MAR-2016 23 :30:24<$> Pat. Grandmother: Hypertension Other: Optic neuropathy Mat. Grandmother: Diabetes mellitus type II Other (multiple family members on mother's side): Sherie's optic atrophy Radiology X-rays of the right femur reviewed by myself demonstrate??lucency??about the canalicular screws of right hip ORIF. No additional fractures or dislocations are appreciated. ?? CT of the right lower extremity reviewed by myself demonstrates no acute fracture or dislocation.?? Appreciate right InterTAN hardware.?? There is some surrounding lucency about the canalicular screws.?? Additionally appreciate a 4 x 4 x 2 cm loculated collection with a sinus tract extending laterally to the skin surface along the right hip and greater trochanter.?? Additionally appreciate skin changes consistent with cellulitis. Lab Results Labs Last 24 Hours BLOOD COUNT & DIFF ? Event Name?? Event Result?? Date/Time?? WBC 4.6 k/mm3 03/18/23 21:39:00 RBC 3.68 m/mm3??Low 03/18/23 21:39:00 Hgb 11.2 Gm/dL??Low 03/18/23 21:39:00 Hct 33.9 %??Low 03/18/23 21:39:00 MCV 92.1 femtoliters 03/18/23 21:39:00 MCH 30.4 pg 03/18/23 21:39:00 MCHC 33 g/dL 03/18/23 21:39:00 Platelet Count 106 k/mm3??Low 03/18/23 21:39:00 MPV 9.9 femtoliters 03/18/23 21:39:00 Nucleated RBC (Automated) 0 #/100 WBC'S 03/18/23 21:39:00 ? CHEM GENERAL ? Event Name?? Event Result?? Date/Time?? Sodium 138 mmol/L 03/18/23 21:39:00 Chloride 106 mmol/L 03/18/23 21:39:00 Bicarbonate Level 22 mmol/L 03/18/23 21:39:00 Anion Gap 10 03/18/23 21:39:00 Glucose Level 97 mg/dL 03/18/23 21:39:00 BUN 7 mg/dL 03/18/23 21:39:00 Creatinine-Blood 0.7 mg/dL 03/18/23 21:39:00 ? Patient Care team information Care Team Personnel Name: Alexandra Colmenares RN Position: [facility] ED RN W/OE and Tasks Member Role: Primary Care Nurse Name: Garima Manzano RN Position: [facility] RN Member Role: Primary Care Nurse Name: Malgorzata Marinelli RN Position: [facility] RN Member Role: Primary Care Nurse Name: Joyce Roach RN Position: [facility] RN Member Role: Primary Care Nurse Name: Mary Suazo RN Position: [facility] RN Member Role: Primary Care Nurse Name: Andres Pressley RN Position: [facility] RN Member Role: Primary Care Nurse Name: Jany Baig DO Position: [facility] Physician - Primary Care Member Role: PCP Address: Address: [address] [place] [address] Adult [place] [address]- Name: Kaye Payne RN Position: [facility] RN Member Role: Primary Care Nurse Name: Garima Hutchinson Position: [facility] RN Member Role: Primary Care Nurse Name: Malgorzata Austin Position: [facility] RN Member Role: Primary Care Nurse Name: Ibeth Adams RN Position: [facility] RN Member Role: Primary Care Nurse Name: Torrie Hernandez RN Position: [facility] OB RN Member Role: Primary Care Nurse Name: Gretchen Knutson RN Position: [facility] SN RN Member Role: Primary Care Nurse Name: Aislinn Mckee RN Position: [facility] RN Member Role: Primary Care Nurse Name: Ashley Mcelroy Position: [facility] RN Member Role: Primary Care Nurse Name: Ashok Kevin RN Position: [facility] RN Member Role: Primary Care Nurse Name: Cody Garcia Position: [facility] Associate Professional Member Role: Lifetime Consulting Provider Address: Address: [address] [place] [address]- Name: Paige Nascimento RN Position: [facility] RN Member Role: Primary Care Nurse Name: Ge Covarrubias RN Position: [facility] RN Member Role: Primary Care Nurse Name: Orin Elmore RN Position: [facility] ED RN W/OE and Tasks Member Role: Primary Care Nurse Name: Allegra Liu RN Position: [facility] AMB Nurse Member Role: Primary Care Nurse Name: Shayan Pandya MD Position: [facility] Renal MD Member Role: Lifetime Consulting Physician Address: Address: [address] [place] [address] [address] [facility] [place], [place] [address]- Name: Darlene Rodrigez RN Position: [facility] RN Member Role: Primary Care Nurse Name: Kwan Mills RN Position: [facility] RN Member Role: Primary Care Nurse Name: Dolores Can RN Position: [facility] RN Member Role: Primary Care Nurse Name: Ingrid Verdugo RN Position: [facility] RN Member Role: Primary Care Nurse Name: Monica Rowell RN Position: [facility] RN Member Role: Primary Care Nurse Name: Jimi Fitzpatrick RN Position: [facility] RN Member Role: Primary Care Nurse Name: *Salvatore ORTIZ Attending Position: [facility] ED Medicine MD Name: Desi Crockett Position: [facility] ED TA [facility] Member Role: Armature Repairer Name: Luisa Kamara RN Position: [facility] ED RN W/OE and Tasks Member Role: Patient Care Provider Name: Nick Hector Position: [facility] Associate Professional Member Role: ED Physician Manager [employer] Address: Address: [address] [place] [address] [place] [address]- [place] Care Team Related Persons Name: MARLEN BASSETT Address: home [address] [place] [address] Name: MARLEN BASSETT Address: home [address] [place] [id number] Name: NICK BASSETT Name: GEMA BASSETT Address: [place] [address]
--- OUTSIDE RECORDS SUMMARY | 2023-12-15 20:54 | XMS_ITS | Continuity of Care Document ---
Author Organization [facility] Address [address] [place] [address]- Care Team Providers Care Credentialing Coordinator Name Role Phone Jany Baig DO Primary Care Physician [facility] Date[facility]): 12/01/22 - 12/31/22 [facility] [address] [place], [place] [address] Allergies, Adverse Reactions, Alerts Substance [...] 1Result Comment: [facility]: [id number] 2Result Comment: [04/29/2017] [id number] 3Admin Note: FLUARIX 4Admin Note: 3 RDINJ 5Admin Note: #2 Medications acamprosate 333 mg oral delayed release tablet 1 tablet = 333 mg, By Mouth, 3 times a day, # 42 tablet, 4 Refills, Maintenance, 11/05/22 11:31:00 EDT, EC Tablet, [facility], Partial fill upon patient request if the prescription is for a schedule II opioid drug., 175, cm, 11/05/22 10:21:00... Start Date: 11/05/22 Stop Date: 01/14/23 Status: Ordered amLODIPine 5 mg oral tablet 1 tablet, By Mouth, Daily, ^1R1., # 30 tablet, 5 Refills, Maintenance, 12/22/22 7:20:00 EDT, [facility], 175, cm, 12/03/22 11:50:00 EDT, Height, 88.9, kg, 10/21/22 20:41:00 EDT, Dry Weight Start Date: 12/22/22 Status: Ordered baclofen 10 mg oral tablet See Instructions, TAKE ONE TABLET BY MOUTH THREE TIMES A DAY ^1R1,1R2,1R4, # 90 tablet, Refills 0, Maintenance, 12/22/22 16:58:00 EDT, Instructions Replace Required Details, Route to Pharmacy Electronically, [facility], 175, cm, 12/03/22 11:50... Start Date: 12/22/22 Status: Ordered calcium (as carbonate)-vitamin D 500 mg-400 intl units oral tablet 1 tablet, By Mouth, Daily, ^1R1., # 28 tablet, 0 Refills, Maintenance, 12/01/22 16:12:00 EDT, [facility], 28, 1 tablet By [...] capsule, 6 Refills, Maintenance, 12/03/22 12:13:00 EDT, [facility], 175, cm, 12/03/22 11:50:00 [...] Gm, 0 Refills, Maintenance, 12/22/22 16:58:00 EDT, [facility], 13, APPLY TOPICALLY FOUR TIMES [...] Gm, 11 Refills, Maintenance, 08/07/22 12:12:00 EST, [facility]/pharmacy #[id number], 30, USE 1 SPRAY(S) INTO EACH NOSTRIL TWICE A DAY, 176, cm,08/07/22 11:37:00 EST, Height, 79.8, kg, 07/31/22 2... Start Date: 08/07/22 Status: Ordered folic acid 1 mg oral tablet 1, tablet, By Mouth, Daily, R1., # 30 tablet, Refills 5, Tot. Refills 5, Maintenance, 10/06/22 4:59:00 EDT, Route to Pharmacy Electronically, [facility], 176, cm, 09/07/22 8:56:00 EDT, Height, [...] 09/03/22 14:50:00 EDT, Route to Pharmacy Electronically, [facility], 169, cm, 09/03/22 14:21:00 EDT, Height, 69, kg, 08/16/22 1:04:00 EST, Dry Weight Start Date: 09/03/22 Status: Ordered gabapentin 300 mg oral capsule 300 mg, 1, capsule, By Mouth, Daily at bedtime, note dose/frequency change, # 90 capsule, Refills 4, Tot. Refills 4, Maintenance, 11/05/22 11:05:00 EDT, Route to Pharmacy Electronically, [facility], 175, cm, 11/05/22 10:21:00 EDT, Height, 88.9... Start Date: 11/05/22 Stop Date: 01/29/24 Status: Ordered hydrOXYzine hydrochloride 10 mg oral tablet 2 tablet, By Mouth, 2 times a day, PRN NEEDED FOR ANXIETY (VIAL), # 30 tablet, 3 Refills, Maintenance, 12/22/22 16:57:00 EDT, [facility], 175, cm, 12/03/22 11:50:00 EDT, Height, 88.9, kg, 10/21/22 20:41:00 EDT, Dry Weight Start Date: 12/22/22 Status: Ordered lactulose 10 gm/15 ml oral syrup 15 mL, By Mouth, 2 times a day, # 120 mL, 6 Refills, Maintenance, 09/22/22 12:15:00 EDT, [facility], 4, TAKE 15ML BY MOUTH TWO TIMES A DAY, 176, cm, 09/07/22 8:56:00 EDT, Height, 82.1, kg, 09/07/22 8:59:00 EDT, Dry Weight Start Date: 09/22/22 Status: Ordered Lidoderm 5% film 1 patch, Topically, Daily, remove patches after 12 hours NSAIDS contraindicated High dose tylenol contraindicated remove patches after 12 hours Nueropathy, # 30 patch, 5 Refills, Maintenance, 11/05/22 11:04:00 EDT, [facility], Partial klaudia... Start Date: 11/05/22 Status: Ordered Melatonin 3 mg oral tablet 1 tablet, By Mouth, Daily at bedtime, PRN NEEDED FOR INSOMNIA (PACKAGE IN TRAY)^1R4, # 60 tablet, 5 Refills, Maintenance, 06/12/22 18:11:00 EST, [facility], 60, TAKE 1 TABLET BY MOUTH [...] 09/03/22 14:53:00 EDT, Route to Pharmacy Electronically, [facility], Partial fill upon patient request if [...] 11/05/22 11:31:00 EDT, Route to Pharmacy Electronically, [facility], Partial fill upon patient request if the prescription is for a schedule II opioid drug... Start Date: 11/05/22 Status: Ordered Tab-A-Jesse oral tablet 1 tablet, By Mouth, Daily, # 90 tablet, 1 Refills, 12/01/22 12:59:00 EDT, [facility], 28, 1tablet By Mouth Daily, 175, cm, 11/13/22 10:42:00 EDT, Height, 88.9, kg, 10/21/22 20:41:00 EDT, DryWeight Start Date: 12/01/22 Status: Ordered traZODone 50 mg oral tablet 2 tablets, By Mouth, Daily at bedtime, # 60 each, Refills 5, Tot. Refills 5, Maintenance, 09/03/22 17:13:00 EDT, Route to Pharmacy Electronically, [facility], 169, cm, 09/03/22 14:21:00 EDT, Height, [...] 03/13/22 8:37:00 EDT, Route to Pharmacy Electronically, [facility], 175, cm, 01/06/22 10:34:00 EDT, Height, 78.3, kg, 12/26/2218:05:00 EDT, Dry Weight Start Date: 03/13/22 Status: Ordered Vitamin B6 50 mg oral tablet 1, tablet, By Mouth, Daily, R1., # 90 tablet, Refills 4, Maintenance, 11/16/22 13:39:00 EDT, Route to Pharmacy Electronically, [facility], 175, cm, 11/13/22 10:42:00 EDT, Height, [...] tablet, 3 Refills, Maintenance, 10/01/22 15:19:00 EDT, [facility], 176, cm, 09/07/22 8:56:00 EDT, Height, [...] Team Personnel Name: Alexandra Colmenares RN Position: [facility] ED RN W/OE and Tasks Member Role: Primary Care Nurse Name: Garima Manzano RN Position: [facility] RN Member Role: Primary Care Nurse Name: Malgorzata Marinelli RN Position: [facility] RN Member Role: Primary Care Nurse Name: Joyce Roach RN Position: [facility] RN Member Role: Primary Care Nurse Name: Mary Suazo RN Position: [facility] RN Member Role: Primary Care Nurse Name: Andres Pressley RN Position: [facility] RN Member Role: Primary Care Nurse Name: Jany Baig DO Position: [facility] Physician - Primary Care Member Role: PCP Address: Address: [address] [place] [address] Adult & [place] [address]- Name: Neida Ballard RN Position: [facility] RN Member Role: Primary Care Nurse Name: Kaye Payne RN Position: [facility] RN Member Role: Primary Care Nurse Name: Garima Hutchinson Position: [facility] RN Member Role: Primary Care Nurse Name: Malgorzata Austin Position: [facility] RN Member Role: Primary Care Nurse Name: Ibeth Adams RN Position: [facility] RN Member Role: Primary Care Nurse Name: Torrie Hernandez RN Position: [facility] OB RN Member Role: Primary Care Nurse Name: Gretchen Knutson RN Position: [facility] SN RN Member Role: Primary Care Nurse Name: Aislinn Mckee RN Position: [facility] RN Member Role: Primary Care Nurse Name: Ashley Mcelroy Position: S RN Member Role: Primary Care Nurse Name: Cody Garcia Position: [facility] Associate Professional Member Role: Lifetime Consulting Provider Address: Address: [address] [place] [address]- Name: Ge Covarrubias RN Position: [facility] RN Member Role: Primary Care Nurse Name: Orin Elmore RN Position: [facility] ED RN W/OE and Tasks Member Role: Primary Care Nurse Name: Allegra Liu RN Position: [facility] AMB Nurse Member Role: Primary Care Nurse Name: Shayan Pandya MD Position: [facility] Renal MD Member Role: Lifetime Consulting Physician Address: Address: [address] [place] [address] [address] [facility] [place] [address]- Name: Darlene Rodrigez RN Position: [facility] RN Member Role: Primary Care Nurse Name: Kwan Mills RN Position: [facility] RN Member Role: Primary Care Nurse Name: Dolores Can RN Position: [facility] RN Member Role: Primary Care Nurse Name: Monica Rowell RN Position: [facility] RN Member Role: Primary Care Nurse Name: Jimi Fitzpatrick RN Position: [facility] RN Member Role: Primary Care Nurse Care Team Related Persons Name: MARLEN CABEZAS Address: home [address] [place] [address] Name: MARLEN CABEZAS Address: home [address] [place] [address] Name: NICK CABEZAS Name: GEMA CABEZAS Address: home [address] [place] [id number]
--- OUTSIDE RECORDS SUMMARY | 2023-12-15 20:54 | XMS_ITS | Continuity of Care Document ---
Author Organization [facility] Address [address] [place] [address]- Care Team Providers Care Gyroscope Repairer Name Role Phone Jany Baig DO Primary Care Physician [facility] 06/28/23 - 07/28/23 [facility] [address] [place], [place] [address] Allergies, Adverse Reactions, Alerts Substance [...] influenza virus vaccine, inactivated 3 02/28/13 Gi cleopatar SARS-CoV-2 (COVID-19) mRNA-1273 vaccine 04/08/21 R ecorded [...] Comment: [facility]: [id number] 2Result Comment: [04/29/2017] [id number] 3Admin Note: FLUARIX 4Admin Note: 3 RDINJ 5Admin Note: #2 Medications acamprosate 333 mg oral delayed release tablet 2 tablet = 666 mg, By Mouth, 3 times a day, # 180 tablet, 1 Refills, Maintenance, 07/28/23 11:04:00EST, EC Tablet, [facility], Partial fill upon patient request [...] tablet, 2 Refills, Maintenance, 07/28/23 11:06:00 EST, [facility], 175, cm, 07/28/23 9:11:00 EST, Height, 61.3, kg, 07/12/23 23:27:00 EST, Dry Weight Start Date: 07/28/23 Status: Ordered amLODIPine 5 mg oral tablet 1 tablet, By Mouth, Daily, ^1R1., # 30 tablet, 2 Refills, Maintenance, 06/02/23 8:00:00 EST, [facility], 175, cm, 03/22/23 6:50:00 EDT, [...] 07/28/23 11:10:00 EST, Route to Pharmacy Electronically, [facility], Partial fill upon patient request if [...] Gm, 12 Refills, Maintenance, 07/28/23 11:06:00 EST, [facility], 28, APPLY TOPICALLY TO AFFECTED AREA(S) [...] Gm, 1 Refills, Maintenance, 07/28/23 12:07:00 EST, [facility], 30, USE 1 SPRAY(S) INTO EACH [...] 07/28/23 12:08:00 EST, Route to Pharmacy Electronically, [facility], 175, cm, 07/28/23 9:11:00 EST, Height, 61.3, kg, 07/12/23 23:27:00 EST, Dry Weight Start Date: 07/28/23 Status: Ordered furosemide 20 mg oral tablet 20 mg, 1, tablet, By Mouth, Every other day, # 30 tablet, Refills 1, Tot. Refills 1, Maintenance, 07/28/23 12:08:00 EST, Route to Pharmacy Electronically, [facility], Partial fill upon patient request if the prescription is for a schedule II... Start Date: 07/28/23 Status: Ordered gabapentin 300 mg oral capsule 300 mg, 1, capsule, By Mouth, Daily at bedtime, note dose/frequency change, # 30 capsule, Refills 1, Tot. Refills 1, Maintenance, 07/28/23 12:09:00 EST, Route to Pharmacy Electronically, [facility], 175, cm, 07/28/23 9:11:00 EST, [...] tablet, 3 Refills, Maintenance, 07/28/23 12:10:00 EST, [facility], 175, cm, 07/28/23 9:11:00 EST, Height, 61.3, kg,07/12/23 23:27:00 EST, Dry Weight Start Date: 07/28/23 Status: Ordered lactulose 10 gm/15 ml oral syrup 30 mL = 20 Gm, By Mouth, 3 times a day, for 30 days, # 2,700 mL, 2 Refills, Acute 10/26/23 12:13:00EDT, 07/28/23 12:13:00 EST, Syrup, [facility], Partial fill upon patient request [...] 60 tablet, 11 Refills, Maintenance,07/28/23 12:09:00 EST, [facility], 175, cm, 07/28/23 9:11:00 EST, [...] tablet, 5 Refills, Maintenance, 07/28/23 12:09:00 EST, [facility], 60, 1 tablet By Mouth Daily [...] 07/28/23 12:11:00 EST, Route to Pharmacy Electronically, [facility], 175, cm, 07/28/23 9:11:00EST, Height, 61.3, [...] 07/28/23 12:12:00 EST, Route to Pharmacy Electronically, [facility], 175, cm, 07/28/23 9:11:00 EST, Height, 61.3, kg, 07/12/23 23:27:00 EST, Dry Weight Start Date: 07/28/23 Status: Ordered spironolactone 25 mg oral tablet 1, tablet, By Mouth, Daily, ^1R2., # 30 tablet, Refills 5, Tot. Refills 5, Maintenance, 04/14/23 12:41:00 EDT, Route to Pharmacy Electronically, [facility], 175, cm, 03/22/23 6:50:00 EDT, Height, 77.5, kg, 03/20/23 11:30:00 EDT, Dry Weight Start Date: 04/14/23 Status: Ordered Tab-A-Jesse oral tablet 1 tablet, By Mouth, Daily, R1., # 30 tablet, 5 Refills, Maintenance, 05/06/23 19:16:00 EST, [facility], 30, TAKE 1 TABLET BY MOUTH ONCE A DAY^1R1, 175, cm, 03/22/23 6:50:00 EDT, Height, 77.5,kg, 03/20/23 11:30:00 EDT, Dry Weight Start Date: 05/06/23 Status: Ordered traZODone 50 mg oral tablet 2, tablet, By Mouth, Daily at bedtime, ^2R4., # 60 tablet, Refills 5, Maintenance, 02/26/23 10:11:00 EDT, Route to Pharmacy Electronically, [facility], 175, cm, 12/03/22 11:50:00 EDT, Height,84, kg, 02/12/23 11:30:00 EDT, Dry Weight Start Date: 02/26/23 Status: Ordered traZODone 50 mg oral tablet 2, tablet, By Mouth, Daily at bedtime, ^2R4., # 60 tablet, Refills 5, Tot. Refills 5, Maintenance, 07/28/23 12:12:00 EST, Route to Pharmacy Electronically, [facility], 175, cm, 07/28/23 9:11:00 EST, Height, [...] 02/09/23 23:18:00 EDT, Route to Pharmacy Electronically, [facility], 175, cm, 12/03/22 11:50:00 EDT, Height, 88.9, kg, 10/21/22 20:41:00 EDT, Dry Weight Start Date: 02/09/23 Status: Ordered Vitamin B1 100 mg oral tablet 1, tablet, By Mouth, Daily, # 90 tablet, Refills 3, Tot. Refills 3, Maintenance, 07/28/23 12:12:00 EST, Route to Pharmacy Electronically, [facility], 175, cm, 07/28/23 9:11:00 EST, Height, 61.3, kg, 07/12/23 23:27:00 EST, Dry Weight Start Date: 07/28/23 Status: Ordered Vitamin B6 50 mg oral tablet 1, tablet, By Mouth, Daily, R1., # 90 tablet, Refills 4, Maintenance, 11/16/22 13:39:00 EDT, Route to Pharmacy Electronically, [facility], 175, cm, 11/13/22 10:42:00 EDT, Height, 88.9, kg, 10/21/22 20:41:00 EDT, Dry Weight Start Date: 11/16/22 Status: Ordered Vitamin B6 50 mg oral tablet 1, tablet, By Mouth, Daily, R1., # 90 tablet, Refills 4, Tot. Refills 4, Maintenance, 07/28/23 12:11:00 EST, Route to Pharmacy Electronically, [facility], 175, cm, 07/28/23 9:11:00 EST, Height, [...] each, 1 Refills, Maintenance, 07/28/23 14:33:00 EST, [facility], 175, cm, 07/28/23 9:11:00 EST, Height, [...] Team Personnel Name: Shira Galindo RN Position: [facility] RN Member Role: Primary Care Nurse Name: Lisa Nunez RN Position: [facility] RN Member Role: Primary Care Nurse Name: Alexandra Colmenares RN [facility] Care Nurse Name: Lucina Peralta RN Position: [facility] RN Member Role: Primary Care Nurse Name: Maria Esther Craig LPN Position: [facility] RN Member Role: Primary Care Nurse Name: Andres Pressley RN Position: [facility] ED RN W/OE and Tasks Member Role: Primary Care Nurse Name: Jany Baig DO Position: [facility] Physician - Primary Care Member Role: PCP Address: Address: [address] [place] [address] Adult [place] [address]- Name: Kaye Payne RN Position: S RN Member Role: Primary Care Nurse Name: Garima Hutchinson Position: S RN Member Role: Primary Care Nurse Name: Malgorzata Austin Position: S RN Member Role: Primary Care Nurse Name: Ibeth Adams RN Position: S RN Member Role: Primary [...] Role: Lifetime Consulting Provider Address: Address: [address] [place] [address] Name: Paige Nascimento RN [facility] Role: Lifetime Consulting Physician Address: Address: [address] [place] [address] [address] [facility], [place] [address]- Name: Kimberley Pittman RN Position: [facility] RN Member Role: Primary Care Nurse Name: Darlene Rodrigez RN Position: [facility] RN Member Role: Primary Care Nurse Name: Dixie Duke RN Position: [facility] RN Member Role: Primary Care Nurse Name: Kwan Mills RN Position: [facility] ED RN W/OE and Tasks Member Role: Primary Care Nurse Name: Ingrid Verdugo RN Position: [facility] RN Member Role: Primary Care Nurse Name: Monica Rowell RN Position: [facility] RN Member Role: Primary Care Nurse Name: Jimi Fitzpatrick RN Position: [facility] RN Member Role: Primary Care Nurse Care Team Related Persons Name: MARLEN CABEZAS Address: home [address] [place], [place] Name: MARLEN CABEZAS Address: home [address] [place] [address] Name: NICK CABEZAS Name: GEMA CABEZAS Address: home [address] [place], [place] Name: ELTON CHENG Address: home [address] [place] [id number]
--- OUTSIDE RECORDS SUMMARY | 2023-12-15 20:54 | XMS_ITS | Continuity of Care Document ---
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 Role Phone Jany Baig DO Primary Care Physician En[place] [facility] [place](s): 12/01/22 - 12/31/22 [facility] [address] [place], [place] [address] Allergies, Adverse Reactions, Alerts Substance [...] n 1Result Comment: [facility]: [id number] 2Result Comment: [04/29/2017] [id number] 3Admin Note: FLUARIX 4Admin Note: 3 RDINJ 5Admin Note: #2 Medications acamprosate 333 mg oral delayed release tablet 1 tablet = 333 mg, By Mouth, 3 times a day, # 42 tablet, 4 Refills, Maintenance, 11/05/22 11:31:00 EDT, EC Tablet, [facility], Partial fill upon patient request if the prescription is for a schedule II opioid drug., 175, cm, 11/05/22 10:21:00... Start Date: 11/05/22 Stop Date: 01/14/23 Status: Ordered amLODIPine 5 mg oral tablet 1 tablet, By Mouth, Daily, ^1R1., # 30 tablet, 5 Refills, Maintenance, 12/22/22 7:20:00 EDT, [facility], 175, cm, 12/03/22 11:50:00 EDT, Height, 88.9, kg, 10/21/22 20:41:00 EDT, Dry Weight Start Date: 12/22/22 Status: Ordered baclofen 10 mg oral tablet See Instructions, TAKE ONE TABLET BY MOUTH THREE TIMES A DAY ^1R1,1R2,1R4, # 90 tablet, Refills 0, Maintenance, 12/22/22 16:58:00 EDT, Instructions Replace Required Details, [facility] to [facility], 175, cm, 12/03/22 11:50... Start Date: 12/22/22 Status: Ordered calcium (as carbonate)-vitamin D 500 mg-400 intl units oral tablet 1 tablet, By Mouth, Daily, ^1R1., # 28 tablet, 0 Refills, Maintenance, 12/01/22 16:12:00 EDT, [facility], 28, 1 tablet By [...] capsule, 6 Refills, Maintenance, 12/03/22 12:13:00 EDT, [facility], 175, cm, 12/03/22 11:50:00 EDT, [...] Gm, 0 Refills, Maintenance, 12/22/22 16:58:00 EDT, [facility], 13, APPLY TOPICALLY FOUR TIMES [...] Gm, 11 Refills, Maintenance, 08/07/22 12:12:00 EST, [facility]/pharmacy #[id number], 30, USE 1 SPRAY(S) INTO EACH NOSTRIL TWICE A DAY, 176, cm,08/07/22 11:37:00 EST, Height, 79.8, kg, 07/31/22 2... Start Date: 08/07/22 Status: Ordered folic acid 1 mg oral tablet 1, tablet, By Mouth, Daily, R1., # 30 tablet, Refills 5, Tot. Refills 5, Maintenance, 04/25/23 4:59:00 EDT, Route to Pharmacy [facility], [facility], 176, cm, 09/07/22 8:56:00 EDT, Height, [...] 09/03/22 14:50:00 EDT, Route to Pharmacy Electronically, [facility], 169, cm, 09/03/22 14:21:00 EDT, Height, 69, kg, 08/16/22 1:04:00 EST, Dry Weight Start Date: 09/03/22 Status: Ordered gabapentin 300 mg oral capsule 300 mg, 1, capsule, By Mouth, Daily at bedtime, note dose/frequency change, # 90 capsule, Refills 4, Tot. Refills 4, Maintenance, 11/05/22 11:05:00 EDT, [facility], 175, cm, 11/05/22 10:21:00 EDT, Height, 88.9... Start Date: 11/05/22 Stop Date: 01/29/24 Status: Ordered hydrOXYzine hydrochloride 10 mg oral tablet 2 tablet, By Mouth, 2 times a day, PRN NEEDED FOR ANXIETY (VIAL), # 30 tablet, 3 Refills, Maintenance, 12/22/22 16:57:00 EDT, [facility], 175, cm, 12/03/22 11:50:00 EDT, Height, 88.9, kg, 10/21/22 20:41:00 EDT, Dry Weight Start Date: 12/22/22 Status: Ordered lactulose 10 gm/15 ml oral syrup 15 mL, By Mouth, 2 times a day, # 120 mL, 6 Refills, Maintenance, 09/22/22 12:15:00 EDT, [facility], 4, TAKE 15ML BY MOUTH TWO TIMES A DAY, 176, cm, 09/07/22 8:56:00 EDT, Height, 82.1, kg, 09/07/22 8:59:00 EDT, Dry Weight Start Date: 09/22/22 Status: Ordered Lidoderm 5% film 1 patch, Topically, Daily, remove patches after 12 hours NSAIDS contraindicated High dose tylenol contraindicated remove patches after 12 hours Nueropathy, # 30 patch, 5 Refills, Maintenance, 11/05/22 11:04:00 EDT, [facility], Partial klaudia... Start Date: 11/05/22 Status: Ordered Melatonin 3 mg oral tablet 1 tablet, By Mouth, Daily at bedtime, PRN NEEDED FOR INSOMNIA (PACKAGE IN TRAY)^1R4, # 60 tablet, 5 Refills, Maintenance, 06/12/22 18:11:00 EST, [facility], 60, TAKE 1 TABLET BY MOUTH [...] 09/03/22 14:53:00 EDT, Route to Pharmacy Electronically, [facility], Partial fill upon patient request if [...] 11/05/22 11:31:00 EDT, Route to Pharmacy Electronically, [facility], Partial fill upon patient request if the prescription is for a schedule II opioid drug... Start Date: 11/05/22 Status: Ordered Tab-A-Jesse oral tablet 1 tablet, By Mouth, Daily, # 90 tablet, 1 Refills, 12/01/22 12:59:00 EDT, [facility], 28, 1tablet By Mouth Daily, 175, cm, 11/13/22 10:42:00 EDT, Height, 88.9, kg, 10/21/22 20:41:00 EDT, DryWeight Start Date: 12/01/22 Status: Ordered traZODone 50 mg oral tablet 2 tablets, By Mouth, Daily at bedtime, # 60 each, Refills 5, Tot. Refills 5, Maintenance, 09/03/22 17:13:00 EDT, Route to Pharmacy Electronically, [facility], 169, cm, 09/03/22 14:21:00 EDT, Height, [...] 03/13/22 8:37:00 EDT, Route to Pharmacy Electronically, [facility], 175, cm, 01/06/22 10:34:00 EDT, Height, 78.3, kg, 12/26/2218:05:00 EDT, Dry Weight Start Date: 03/13/22 Status: Ordered Vitamin B6 50 mg oral tablet 1, tablet, By Mouth, Daily, R1., # 90 tablet, Refills 4, Maintenance, 11/16/22 13:39:00 EDT, Route to Pharmacy Electronically, [facility], 175, cm, 11/13/22 10:42:00 EDT, Height, [...] tablet, 3 Refills, Maintenance, 10/01/22 15:19:00 EDT, [facility], 176, cm, 09/07/22 8:56:00 EDT, Height, [...] Joyce Roach RN Position: [facility] RN Member Role: Primary Care Nurse Name: Mary Suazo RN Position: [facility] RN Member Role: Primary Care Nurse Name: Andres Pressley RN Position: [facility] RN Member Role: Primary Care Nurse Name: Jany Baig DO Position: [facility] Physician - Primary Care Member Role: PCP Address: Address: [address] [place] [address] Adult & [place] [address]- Name: Neida Ballard RN Position: [facility] RN Member Role: Primary Care Nurse Name: Kaye Payne RN [facility]: [facility] [...] Role: Lifetime Consulting Provider Address: Address: [address] [place] [address]- Name: Ge Covarrubias RN Position: [facility] RN Member Role: Primary Care Nurse Name: Orin Elmore RN Position: [facility] ED RN W/OE and Tasks Member Role: Primary Care Nurse Name: Allegra Liu RN Position: [facility] AMB Nurse Member Role: Primary Care Nurse Name: Shayan Pandya MD Position: [facility] Renal MD Member Role: Lifetime Consulting Physician Address: Address: [address] [place] [address] [address] [facility], [place] [address]- Name: Darlene Rdorigez RN Position: [facility] RN Member [...] Related Persons Name: MARLEN CABEZAS Address: home [address] [place] [id number] Name: MARLEN CABEZAS Address: home [address] [place] [address] Name: NICK CABEZAS Name: GEMA CABEZAS Address: home [address] [place] [id number]
--- OUTSIDE RECORDS SUMMARY | 2023-12-15 20:54 | XMS_ITS | Continuity of Care Document ---
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 Name Role Phone Jany Baig DO Primary Care Physician Encounter [facility] [place] [place] Date(s): 07/28/23 - 08/04/23 [facility] [address] [place], [place] [address] Encounter Diagnosis Fall through floor, subsequent encounter(Discharge Diagnosis) - 07/28/23 Abrasion of right leg(Discharge Diagnosis) - 07/28/23 Encounter for removal of sutures(Discharge Diagnosis) - 07/28/23 Legally blind(Discharge Diagnosis) - 07/28/23 Ecchymosis of left eye(Discharge Diagnosis) - 07/28/23 Delayed surgical wound healing(Discharge Diagnosis) - 07/28/23 Attending Physician: Nick LEE, Kris Allergies, Adverse Reactions, Alerts Substance Reaction Severity [...] acel (oldterm) 08/02/12 Give n 1Result Comment: [facility]: [id number] 2Result Comment: [04/29/2017] [id number] 3Admin Note: FLUARIX 4Admin Note: 3 RDINJ 5Admin Note: #2 Medications acamprosate 333 mg oral delayed release tablet 2 tablet = 666 mg, By Mouth, 3 times a day, # 180 tablet, 1 Refills, Maintenance, 07/28/23 11:04:00EST, EC Tablet, [facility], Partial fill upon patient request [...] tablet, 2 Refills, Maintenance, 07/28/23 11:06:00 EST, [facility], 175, cm, 07/28/23 9:11:00 EST, Height, 61.3, kg, 07/12/23 23:27:00 EST, Dry Weight Start Date: 07/28/23 Status: Ordered amLODIPine 5 mg oral tablet 1 tablet, By Mouth, Daily, ^1R1., # 30 tablet, 2 Refills, Maintenance, 06/02/23 8:00:00 EST, [facility], 175, cm, 03/22/23 6:50:00 EDT, [...] 07/28/23 11:10:00 EST, Route to Pharmacy Electronically, [facility], Partial fill upon patient request if [...] 08/05/23 19:16:00 EST, 07/29/23 19:16:00 EST, Tablet, [facility], Partial fill upon patient request [...] Gm, 12 Refills, Maintenance, 07/28/23 11:06:00 EST, [facility], 28, APPLY TOPICALLY TO AFFECTED AREA(S) FOUR TIMES A DAY NEEDED FOR PA... Start Date: 07/28/23 Status: Ordered Disposable Underpads n39.498 Disposable Underpads n39.498, See Instructions, # 84 each, Refills 11, Tot. Refills 11, Maintenance, 2 daily per 6 wk period, 11/13/22 12:53:00 EDT, Compound Start Date: 6/2/23 Status: Ordered doxycycline hyclate 100 mg oral capsule 1 capsule = 100 mg, By Mouth, Every 12 hours, for 7 days, # 14 capsule, 0 Refills, Acute 08/05/23 19:21:00 EST, 07/29/23 19:21:00 EST, Capsule, [facility], Partial fill upon patient requestif the [...] Gm, 1 Refills, Maintenance, 07/28/23 12:07:00 EST, [facility], 30, USE 1 SPRAY(S) INTO [...] 07/28/23 12:08:00 EST, Route to Pharmacy Electronically, [facility], 175, cm, 07/28/23 9:11:00 EST, Height, 61.3, kg, 07/12/23 23:27:00 EST, Dry Weight Start Date: 07/28/23 Status: Ordered furosemide 20 mg oral tablet 20 mg, 1, tablet, By Mouth, Every other day, # 30 tablet, Refills 1, Tot. Refills 1, Maintenance, 07/28/23 12:08:00 EST, Route to Pharmacy Electronically, [facility], Partial fill upon patient request if the prescription is for a schedule II... Start Date: 07/28/23 Status: Ordered gabapentin 300 mg oral capsule 300 mg, 1, capsule, By Mouth, Daily at bedtime, note dose/frequency change, # 30 capsule, Refills 1, Tot. Refills 1, Maintenance, 07/28/23 12:09:00 EST, Route to Pharmacy Electronically, [facility], 175, cm, 07/28/23 9:11:00 EST, Height, [...] tablet, 3 Refills, Maintenance, 07/28/23 12:10:00 EST, [facility], 175, cm, 07/28/23 9:11:00 EST, Height, 61.3, kg,07/12/23 23:27:00 EST, Dry Weight Start Date: 07/28/23 Status: Ordered lactulose 10 gm/15 ml oral syrup 30 mL = 20 Gm, By Mouth, 3 times a day, for 30 days, # 2,700 mL, 2 Refills, Acute 10/26/23 12:13:00EDT, 07/28/23 12:13:00 EST, Syrup, [facility], Partial fill upon patient request [...] 60 tablet, 11 Refills, Maintenance,07/28/23 12:09:00 EST, [facility], 175, cm, 07/28/23 9:11:00 EST, [...] tablet, 5 Refills, Maintenance, 07/28/23 12:09:00 EST, [facility], 60, 1 tablet By Mouth Daily at [...] 07/28/23 12:11:00 EST, Route to Pharmacy Electronically, [facility], 175, cm, 07/28/23 9:11:00EST, Height, [...] 07/28/23 12:12:00 EST, Route to Pharmacy Electronically, [facility], 175, cm, 07/28/23 9:11:00 EST, Height, 61.3, kg, 07/12/23 23:27:00 EST, Dry Weight Start Date: 07/28/23 Status: Ordered spironolactone 25 mg oral tablet 1, tablet, By Mouth, Daily, ^1R2., # 30 tablet, Refills 5, Tot. Refills 5, Maintenance, 04/14/23 12:41:00 EDT, Route to Pharmacy Electronically, [facility], 175, cm, 03/22/23 6:50:00 EDT, Height, 77.5, kg, 03/20/23 11:30:00 EDT, Dry Weight Start Date: 04/14/23 Status: Ordered Tab-A-Jesse oral tablet 1 tablet, By Mouth, Daily, R1., # 30 tablet, 5 Refills, Maintenance, 05/06/23 19:16:00 [facility], 30, TAKE 1 TABLET BY MOUTH [...] 02/26/23 10:11:00 EDT, [facility], 175, cm, 12/03/22 11:50:00 EDT, Height,84, kg, 02/12/23 11:30:00 EDT, Dry Weight Start Date: 02/26/23 Status: Ordered traZODone 50 mg oral tablet 2, tablet, By Mouth, Daily at bedtime, ^2R4., # 60 tablet, Refills 5, Tot. Refills 5, Maintenance, 07/28/23 12:12:00 EST, Route to Pharmacy Electronically, [facility], 175, cm, 07/28/23 9:11:00 EST, [...] 02/09/23 23:18:00 EDT, Route to Pharmacy Electronically, [facility], 175, cm, 12/03/22 11:50:00 EDT, Height, 88.9, kg, 10/21/22 20:41:00 EDT, Dry Weight Start Date: 02/09/23 Status: Ordered Vitamin B1 100 mg oral tablet 1, tablet, By Mouth, Daily, # 90 tablet, Refills 3, Tot. Refills 3, Maintenance, 07/28/23 12:12:00 EST, Route to Pharmacy Electronically, [facility], 175, cm, 07/28/23 9:11:00 EST, Height, 61.3, kg, 07/12/23 23:27:00 EST, Dry Weight Start Date: 07/28/23 Status: Ordered Vitamin B6 50 mg oral tablet 1, tablet, By Mouth, Daily, R1., # 90 tablet, Refills 4, Maintenance, 11/16/22 13:39:00 EDT, Route to Pharmacy Electronically, [facility], 175, cm, 11/13/22 10:42:00 EDT, Height, 88.9, kg, 10/21/22 20:41:00 EDT, Dry Weight Start Date: 11/16/22 Status: Ordered Vitamin B6 50 mg oral tablet 1, tablet, By Mouth, Daily, R1., # 90 tablet, Refills 4, Tot. Refills 4, Maintenance, 07/28/23 12:11:00 EST, Route to Pharmacy Electronically, [facility], 175, cm, 07/28/23 9:11:00 EST, [...] each, 1 Refills, Maintenance, 07/28/23 14:33:00 EST, [facility], 175, cm, 07/28/23 9:11:00 EST, [...] Effective Dates Health Status Clinical Service Informant Fall through floor, subsequent encounter Discharge Diagnosis 07/28/23 Abrasion of right leg Discharge Diagnosis 07/28/23 Encounter for removal of sutures Discharge Diagnosis 07/28/23 Legally blind Discharge Diagnosis 07/28/23 Ecchymosis of left eye Discharge Diagnosis 07/28/23 Delayed surgical wound healing Discharge Diagnosis 07/28/23 Vital Signs Most recent to oldest [Reference Range]: 1 Height 175 cm (07/28/23 9:11 AM) Weight 82.2 kg (07/28/23 9:11 AM) Oxygen Saturation [94-100 %] 98 % (07/28/23 9:11 AM) Pulse Rate [55-90 bpm] 107 bpm *H* (07/28/23 9:11 AM) Body Mass Index [18.5-24.99 kg/m2] 26.84 kg/m2 *H* (07/28/23 9:11 AM) Blood Pressure [90-138/55-84 mm Hg] 147/ 85mm Hg *H* (07/28/23 9:11 AM) Mode of Delivery (Oxygen) Room air (07/28/23 9:11 AM) Blood pressure sites Arm, left (07/28/23 9:11 AM) Social History Social History Type Response Smoking Status 10 or more cigarette s (1/2 pack or more)/day in last 30 days entered on: 02/04/19 Sex Patient Care team information Care Team Personnel Name: Shira Galindo RN Position: [facility] RN [...] Primary Care Member Role: PCP Address: Address: [address] [place] [address] Adult & Pediatric Medicine [address] Name: Kaye Payne RN Position: [facility] Role: Lifetime Consulting Provider Address: Address: [address] [place] [address]- Name: Paige Nascimento RN Position: [facility] RN Member Role: Primary Care Nurse Name: Ge Covarrubias RN Position: [facility] RN Member Role: Primary Care Nurse Name: Orin Elmore RN Position: [facility] ED RN W/OE and Tasks Member Role: Primary Care Nurse Name: Allegra Liu RN Position: [facility] AMB Nurse Member Role: Primary Care Nurse Name: Shayan Pandya MD Position: [facility] Renal MD Member Role: Lifetime Consulting Physician Address: Address: [address] [place] [address] [address] [facility] [place] [address]- Name: Kimberley Pittman RN Position: [facility] [...] Persons Name: MARLEN CABEZAS Address: home [address] [place] [address] Name: MARLEN CABEZAS Address: [address] [place] [address] Name: NCIK CABEZAS Name: GEMA CABEZAS Address: home [address] [place] [address] Name: ELTON CHENG Address: home [address] [place] [address]
--- OUTSIDE RECORDS SUMMARY | 2023-12-15 20:54 | XMS_ITS | Continuity of Care Document ---
Author Organization [facility] Address [address] [place] [address]- Care Team Providers Care Special Agent In Charge Name Role Phone Jany Baig DO Primary Care Physician [facility]): 09/13/22 - 10/13/22 [facility] [address] [place] [address]- Allergies, Adverse Reactions, Alerts Substance Reaction Severity [...] 1Result Comment: [facility]: [id number] 2Result Comment: [04/29/2017] [id number] 3Admin Note: FLUARIX 4Admin Note: 3 RDINJ 5Admin Note: #2 Medications acamprosate 333 mg oral delayed release tablet 1 tablet = 333 mg, By Mouth, 3 times a day, # 90 tablet, 4 Refills, Maintenance, 09/03/22 14:59:00 EDT, EC Tablet, [facility], Partial fill upon patient request if the prescription is for a schedule II opioid drug., 169, cm, 09/03/22 14:21:00... Start Date: 09/03/22 Status: Ordered amLODIPine 5 mg oral tablet 1 tablet, By Mouth, Daily, ^1R1., # 30 tablet, 2 Refills, Maintenance, 10/06/22 4:58:00 EDT, [facility], 176, cm, 09/07/22 8:56:00 EDT, Height, 82.1, kg, 09/07/22 8:59:00 EDT, Dry Weight Start Date: 10/06/22 Status: Ordered baclofen 10 mg oral tablet See Instructions, TAKE 1 TABLET BY MOUTH THREE TIMES DAILY, # 90 tablet, Refills 0, Maintenance, 08/07/22 12:26:00 EST, Instructions Replace Required Details, Route to Pharmacy Electronically, [facility], 176, cm, 08/07/22 11:37:00 EST, Height... Start Date: 08/07/22 Status: Ordered calcium (as carbonate)-vitamin D 500 mg-400 intl units oral tablet 1 tablet, By Mouth, Daily, ^1R1., # 28 tablet, 0 Refills, Maintenance, 10/08/22 16:58:00 EDT, [facility], 28, TAKE ONE TABLET BY MOUTH EVERY DAY ^1R1, 176, cm, 09/07/22 8:56:00 EDT, Height, 82.1, kg, 09/07/22 8:59:00 EDT, Dry Weight Start Date: 10/08/22 Status: Ordered Co Q-10 100 mg oral capsule See Instructions, TAKE 1 CAPSULE BY MOUTH FOUR TIMES DAILY, # 120 capsule, 6 Refills, Maintenance, 08/07/22 12:13:00 EST, [facility], 176, cm, 08/07/22 11:37:00 [...] Refills, Maintenance, 08/07/22 12:12:00 EST, [facility]/pharmacy #[id number], 30, USE 1 SPRAY(S) INTO EACH NOSTRIL TWICE A DAY, 176, cm,08/07/22 11:37:00 EST, Height, 79.8, kg, 07/31/22 2... Start Date: 08/07/22 Status: Ordered folic acid 1 mg oral tablet 1, tablet, By Mouth, Daily, R1., # 30 tablet, Refills 5, Tot. Refills 5, Maintenance, 10/06/22 4:59:00 EDT, Route to Pharmacy Electronically, [facility], 176, cm, 09/07/22 8:56:00 EDT, Height, 82.1, kg, 09/07/22 8:59:00 EDT, Dry Weight Start Date: 10/06/22 Status: Ordered furosemide 20 mg oral tablet 1, tablet, By Mouth, Daily, R1., # 30 tablet, Refills 5, Tot. Refills 5, Maintenance, 09/03/22 14:50:00 EDT, Route to Pharmacy Electronically, [facility], 169, cm, 09/03/22 14:21:00 EDT, Height, 69, kg, 08/16/22 1:04:00 EST, Dry Weight Start Date: 09/03/22 Status: Ordered gabapentin 300 mg oral capsule 300 mg, 1, capsule, By Mouth, 2 times a day, note dose/frequency change, # 180 capsule, Refills 4, Tot. Refills 4, Maintenance, 09/03/22 14:55:00 EDT, Route to Pharmacy Electronically, [facility], 169, cm, 09/03/22 14:21:00 EDT, Height, 69, kg... Start Date: 09/03/22 Stop Date: 11/27/23 Status: Ordered hydrOXYzine hydrochloride 10 mg oral tablet 2 tablet, By Mouth, 2 times a day, PRN NEEDED FOR ANXIETY (VIAL), # 30 tablet, 3 Refills, Maintenance, 09/24/22 17:01:00 EDT, [facility], 176, cm, 09/07/22 8:56:00 EDT, Height, 82.1, kg, 09/07/22 8:59:00 EDT, Dry Weight Start Date: 09/24/22 Status: Ordered lactulose 10 gm/15 ml oral syrup 15 mL, By Mouth, 2 times a day, # 120 mL, 6 Refills, Maintenance, 09/22/22 12:15:00 EDT, [facility], 4, TAKE 15ML BY MOUTH TWO TIMES A DAY, 176, cm, 09/07/22 8:56:00 EDT, Height, 82.1, kg, 09/07/22 8:59:00 EDT, Dry Weight Start Date: 09/22/22 Status: Ordered Lidoderm 5% film 1 patch, Topically, Daily, remove patches after 12 hours NSAIDS contraindicated High dose tylenol contraindicated remove patches after 12 hours Nueropathy, # 30 patch, 5 Refills, Maintenance, 09/03/22 16:34:00 EDT, [facility], Partial klaudia... Start Date: 09/03/22 Status: Ordered magnesium oxide 400 mg oral tablet 1 tablet, By Mouth, 2 times a day, # 60 tablet, 11 Refills, Maintenance, 03/13/22 8:37:00 EDT, [facility], 175, cm, 01/06/22 10:34:00 EDT, Height, 78.3, kg, 12/26/21 19:05:00 EDT, Dry Weight Start Date: 03/13/22 Status: Ordered Melatonin 3 mg oral tablet 1 tablet, By Mouth, Daily at bedtime, PRN NEEDED FOR INSOMNIA (PACKAGE IN TRAY)^1R4, # 60 tablet, 5 Refills, Maintenance, 06/12/22 18:11:00 EST, [facility], 60, TAKE 1 TABLET [...] 09/03/22 14:53:00 EDT, Route to Pharmacy Electronically, [facility], Partial fill upon patient request if the prescription is for a schedule II opioid drug... Start Date: 09/03/22 Stop Date: 03/02/23 Status: Ordered PHENobarbital 30 mg oral tablet See Instructions, Taper 09/08-Day 1 -90mg Daily Day 2-3-60mg BID Day 4-5 30mg BID, # 15 tablet, 0 Refills, Maintenance, 09/08/22 15:05:00 EDT, [facility], Partial fill upon patient request if the prescription is for a schedule II op... Start Date: 09/08/22 Status: Ordered pyridoxine 50 mg oral tablet 50 mg, 1, tablet, By Mouth, Daily, for 90 days, # 90 tablet, Refills 4, Tot. Refills 4, Acute 01/15/23 11:42:00 EDT, 10/22/21 11:42:00 EDT, Route to Pharmacy Electronically, [facility], Partial fill upon patient request if [...] 9 Refills, 08/07/22 12:27:00 EST, [facility]/pharmacy #[id number], 28, 1tablet By Mouth Daily, 176, cm, 08/07/22 11:37:00 EST, Height, 79.8, kg, 07/31/22 22:40:00 EST, DryWeight Start Date: 08/07/22 Status: Ordered traZODone 50 mg oral tablet 2 tablets, By Mouth, Daily at bedtime, # 60 each, Refills 5, Tot. Refills 5, Maintenance, 09/03/22 17:13:00 EDT, Route to Pharmacy Electronically, [facility], 169, cm, 09/03/22 14:21:00 EDT, Height, 69, kg, 08/16/22 1:04:00 EST, Dry Weight Start Date: 09/03/22 Status: Ordered Vitamin B1 100 mg oral tablet 1, tablet, By Mouth, Daily, # 90 tablet, Refills 3, Maintenance, 03/13/22 8:37:00 EDT, Route to Pharmacy Electronically, [facility], 175, cm, 01/06/22 10:34:00 EDT, Height, 78.3, kg, 12/26/2218:05:00 EDT, Dry Weight Start Date: 03/13/22 Status: Ordered Xifaxan 550 mg oral tablet 1 tablet, By Mouth, 2 times a day, ^1R1,1R4., # 60 tablet, 3 Refills, Maintenance, 10/01/22 15:19:00 EDT, [facility], 176, cm, 09/07/22 8:56:00 EDT, Height, [...] Care Physician Member Role: PCP Address: Address: [address] [place] [address] Adult [facility] [place] [address]- Name: Neida Ballard RN Position: [facility] [...] Role: Lifetime Consulting Provider Address: Address: [address] [place] [id number]- [place] Name: Ge Covarrubias RN Position: [facility] [...] [facility] [place] [address]- Name: Darlene Rodrigez RN Position: S RN [...] Persons Name: MARLEN CABEZAS Address: [address] [place] [address] Name: MARLEN CABEZAS Address: [address] [place] [address] Name: NICK CABEZAS Name: GEMA CABEZAS Address: home [address] [place] [id number]
--- OUTSIDE RECORDS SUMMARY | 2023-12-15 20:54 | XMS_ITS | Continuity of Care Document ---
Author Organization [facility] Address [address] [place] [address]- Care Team Providers Care Raise Miner Name Role Phone Jany Baig DO Primary Care Physician [facility]): 04/[facility]/23 - 05/21/23 [facility] [address] [place] [address]- Allergies, Adverse Reactions, Alerts Substance Reaction Severity [...] acel (oldterm) 08/02/12 Give n 1Result Comment: [facility]: [id number] 2Result Comment: [04/29/2017] [id number] 3Admin Note: FLUARIX 4Admin Note: 3 RDINJ 5Admin Note: #2 Medications acamprosate 333 mg oral delayed release tablet 1 tablet = 333 mg, By Mouth, 3 times a day, # 42 tablet, 4 Refills, Maintenance, 11/05/22 11:31:00 EDT, EC Tablet, [facility], Partial fill upon patient request if the prescription is for a schedule II opioid drug., 175, cm, 11/05/22 10:21:00... Start Date: 11/05/22 Stop Date: 01/14/23 Status: Ordered amLODIPine 5 mg oral tablet 1 tablet, By Mouth, Daily, ^1R1., # 30 tablet, 5 Refills, Maintenance, 12/22/22 7:20:00 EDT, [facility], 175, cm, 12/03/22 11:50:00 EDT, Height, 88.9, kg, 10/21/22 20:41:00 EDT, Dry Weight Start Date: 12/22/22 Status: Ordered baclofen 10 mg oral tablet See Instructions, TAKE ONE TABLET BY MOUTH THREE TIMES A DAY ^1R1,1R2,1R4, # 90 tablet, Refills 5, Tot. Refills 5, Maintenance, 01/14/23 17:55:00 EDT, Instructions Replace Required Details, Route to Pharmacy Electronically, [facility], 175, cm... Start Date: 01/14/23 Status: Ordered calcium (as carbonate)-vitamin D 500 mg-400 intl units oral tablet 1 tablet, By Mouth, Daily, ^1R1., # 28 tablet, 0 Refills, Maintenance, 12/01/22 16:12:00 EDT, [facility], 28, 1 tablet By Mouth Daily,Instr:^1R1., [...] capsule, 6 Refills, Maintenance, 12/03/22 12:13:00 EDT, [facility], 175, cm, 12/03/22 11:50:00 EDT, Height, [...] Gm, 12 Refills, Maintenance, 03/24/23 10:52:00 EDT, [facility], 28, APPLY TOPICALLY TO AFFECTED AREA(S) [...] Gm, 11 Refills, Maintenance, 08/07/22 12:12:00 EST, [facility]/pharmacy #[id number], 30, USE 1 SPRAY(S) INTO EACH NOSTRIL TWICE A DAY, 176, cm,08/07/22 11:37:00 EST, Height, 79.8, kg, 07/31/22 2... Start Date: 08/07/22 Status: Ordered folic acid 1 mg oral tablet 1, tablet, By Mouth, Daily, ^1R1., # 30 tablet, Refills 5, Maintenance, 03/20/23 16:22:00 EDT, Route to Pharmacy Electronically, [facility], 175, cm, 03/20/23 15:31:00 EDT, Height, 77.5, kg, 03/20/23 11:30:00 EDT, Dry Weight Start Date: 03/20/23 Status: Ordered furosemide 20 mg oral tablet 20 mg, 1, tablet, By Mouth, Every other day, # 30 tablet, Refills 3, Tot. Refills 3, Maintenance, 01/28/23 12:31:00 EDT, Route to Pharmacy Electronically, [facility], Partial fill upon patient request if [...] [facility], 175, cm, 11/05/22 10:21:00 EDT, Height, 88.9... Start Date: 11/05/22 Stop Date: 01/29/24 Status: Ordered hydrOXYzine hydrochloride 10 mg oral tablet 2 tablet, By Mouth, 2 times a day, PRN NEEDED FOR ANXIETY (VIAL), # 30 tablet, 3 Refills, Maintenance, 04/16/23 16:41:00 EDT, [facility], 175, cm, 03/22/23 6:50:00 EDT, Height, 77.5, kg, 03/20/23 11:30:00 EDT, Dry Weight Start Date: 04/16/23 Status: Ordered lactulose 10 gm/15 ml oral syrup 15 mL, By Mouth, 2 times a day, # 120 mL, 6 Refills, Maintenance, 02/26/23 10:11:00 EDT, [facility], 4, TAKE 15ML BY MOUTH TWO TIMES A DAY, 175, cm, 12/03/22 11:50:00 EDT, Height, 84, kg, 02/12/23 11:30:00 EDT, Dry Weight Start Date: 02/26/23 Status: Ordered magnesium oxide 400 mg oral tablet See Instructions, TAKE 1 TABLET BY MOUTH TWICE A DAY^1R1,1R4, # 60 tablet, 11 Refills, Maintenance,01/28/23 12:31:00 EDT, [facility], 175, cm, 12/03/22 11:50:00 EDT, Height, 88.9, kg, 10/21/22 20:41:00 EDT, Dry Weight Start Date: 01/28/23 Status: Ordered Melatonin 3 mg oral tablet 1 tablet, By Mouth, Daily at bedtime, PRN NEEDED FOR INSOMNIA (PACKAGE IN TRAY)^1R4, # 60 tablet, 5 Refills, Maintenance, 04/16/23 16:41:00 EDT, [facility], 60, TAKE 1 TABLET BY MOUTH [...] 02/26/23 10:11:00 EDT, Route to Pharmacy Electronically, [facility], 175, cm, 12/03/22 11:50:00 EDT, Height, [...] 04/14/23 12:41:00 EDT, Route to Pharmacy Electronically, [facility], 175, cm, 03/22/23 6:50:00 EDT, Height, 77.5, kg, 03/20/23 11:30:00 EDT, Dry Weight Start Date: 04/14/23 Status: Ordered Tab-A-Jesse oral tablet 1 tablet, By Mouth, Daily, R1., # 30 tablet, 5 Refills, Maintenance, 05/06/23 19:16:00 EST, [facility], 30, TAKE 1 TABLET BY MOUTH ONCE A DAY^1R1, 175, cm, 03/22/23 6:50:00 EDT, Height, 77.5,kg, 03/20/23 11:30:00 EDT, Dry Weight Start Date: 05/06/23 Status: Ordered traZODone 50 mg oral tablet 2, tablet, By Mouth, Daily at bedtime, ^2R4., # 60 tablet, Refills 5, Maintenance, 02/26/23 10:11:00 EDT, Route to Pharmacy Electronically, [facility], 175, cm, 12/03/22 11:50:00 EDT, Height,84, [...] 02/09/23 23:18:00 EDT, Route to Pharmacy Electronically, [facility], 175, cm, 12/03/22 11:50:00 EDT, Height, 88.9, kg, 10/21/22 20:41:00 EDT, Dry Weight Start Date: 02/09/23 Status: Ordered Vitamin B6 50 mg oral tablet 1, tablet, By Mouth, Daily, R1., # 90 tablet, Refills 4, Maintenance, 11/16/22 13:39:00 EDT, Route to Pharmacy Electronically, [facility], 175, cm, 11/13/22 10:42:00 EDT, Height, [...] tablet, 3 Refills, Maintenance, 02/26/23 10:11:00 EDT, [facility], 175, cm, 12/03/22 11:50:00 EDT, Height, [...] Team Personnel Name: Alexandra Colmenares RN Position: [facility] ED RN W/OE and Tasks Member Role: Primary Care Nurse Name: Garima Manzano RN Position: [facility] RN Member Role: Primary Care Nurse Name: Malgorzata Marinelli RN Position: [facility] RN Member Role: Primary Care Nurse Name: Joyce Roach RN Position: [facility] ED RN W/OE and Tasks Member Role: Primary Care Nurse Name: Mary Suazo RN Position: [facility] RN Member Role: Primary Care Nurse Name: Andres Pressley RN Position: [facility] ED RN W/OE and Tasks Member Role: Primary Care Nurse Name: Jany Baig DO Position: [facility] Physician - Primary Care Member Role: PCP Address: Address: [address] [place] [address] Adult [facility] [place] [address]- Name: Kaye Payne RN Position: [facility] RN Member Role: Primary Care Nurse Name: Garima Hutchinson Position: [facility] RN Member Role: Primary Care Nurse Name: Malgorzata Austin Position: [facility] RN Member Role: Primary Care Nurse Name: Ibeth Adams RN Position: [facility] RN Member Role: Primary Care Nurse Name: Torrie Hernandez RN Position: [facility] OB RN Member Role: Primary Care Nurse Name: Gretchen Knutson RN Position: [facility] SN RN Member Role: Primary Care Nurse Name: Aislinn Mckee RN Position: [facility] RN Member Role: Primary Care Nurse Name: Ashley Mcelroy Position: [facility] RN Member Role: Primary Care Nurse Name: Ashok Kevin RN Position: [facility] RN Member Role: Primary Care Nurse Name: Cody Garcia Position: [facility] Associate Professional Member Role: Lifetime Consulting Provider Address: Address: [address] [place] [address]- Name: Paige Nascimento RN Position: [facility] RN Member Role: Primary Care Nurse Name: Ge Covarrubias RN Position: [facility] RN Member Role: Primary Care Nurse Name: Orin Elmore RN Position: [facility] ED RN W/OE and Tasks Member Role: Primary Care Nurse Name: Allegra Liu RN Position: [facility] AMB Nurse Member Role: Primary Care Nurse Name: Shayan Pandya MD Position: [facility] Renal MD Member Role: Lifetime Consulting Physician Address: Address: [address] [place] [address] [address] [facility] [place] [address]- Name: Darlene Rodrigez RN Position: S RN Member Role: Primary Care Nurse Name: Kwan Mills RN Position: S RN Member Role: Primary Care Nurse Name: Dolores Can RN Position: S RN Member Role: Primary Care Nurse Name: Ingrid Verdugo RN Position: S RN Member Role: Primary Care Nurse Name: Monica Rowell RN Position: [facility] RN Member Role: Primary Care Nurse Name: Jimi Fitzpatrick RN Position: [facility] RN Member Role: Primary Care Nurse Care Team Related Persons Name: MARLEN CABEZAS Address: [address] [address] Name: MARLEN CABEZAS Address: home [address] [place] [id number] Name: NICK CABEZAS Name: GEMA CABEZAS Address: home [address] [place] [id number]
--- OUTSIDE RECORDS SUMMARY | 2023-12-15 20:54 | XMS_ITS | Continuity of Care Document ---
Author Organization [facility] y Address [address] [place] [address] chris, [address] [place] [address]- Care Team Providers Care Machine Greaser Name Role Phone Jany Baig DO Primary Care Physician Encounter [facility] Date(s): 10/12/22 - 10/19/22 [facility] [address] [place] [address] Drive, [address] [place], [place] [address] Attending Physician: Not on Staff, Attending MD [...] 1Result Comment: [facility]: [id number] 2Result Comment: [04/29/2017] [id number] 3Admin Note: FLUARIX 4Admin Note: 3 RDINJ 5Admin Note: #2 Medications acamprosate 333 mg oral delayed release tablet 1 tablet = 333 mg, By Mouth, 3 times a day, # 90 tablet, 4 Refills, Maintenance, 09/03/22 14:59:00 EDT, EC Tablet, [facility], Partial fill upon patient request if the prescription is for a schedule II opioid drug., 169, cm, 09/03/22 14:21:00... Start Date: 09/03/22 Status: Ordered amLODIPine 5 mg oral tablet 1 tablet, By Mouth, Daily, ^1R1., # 30 tablet, 2 Refills, Maintenance, 10/06/22 4:58:00 EDT, [facility], 176, cm, 09/07/22 8:56:00 EDT, Height, 82.1, kg, 09/07/22 8:59:00 EDT, Dry Weight Start Date: 10/06/22 Status: Ordered baclofen 10 mg oral tablet See Instructions, TAKE 1 TABLET BY MOUTH THREE TIMES DAILY, # 90 tablet, Refills 0, Maintenance, 08/07/22 12:26:00 EST, Instructions Replace Required Details, [email or web address], 176, cm, 08/07/22 11:37:00 EST, Height... Start Date: 08/07/22 Status: Ordered calcium (as carbonate)-vitamin D 500 mg-400 intl units oral tablet 1 tablet, By Mouth, Daily, ^1R1., # 28 tablet, 0 Refills, Maintenance, 10/08/22 16:58:00 EDT, [facility], 28, TAKE ONE TABLET BY MOUTH EVERY DAY ^1R1, 176, cm, 09/07/22 8:56:00 EDT, Height, 82.1, kg, 09/07/22 8:59:00 EDT, Dry Weight Start Date: 10/08/22 Status: Ordered Co Q-10 100 mg oral capsule See Instructions, TAKE 1 CAPSULE BY MOUTH FOUR TIMES DAILY, # 120 capsule, 6 Refills, Maintenance, 08/07/22 12:13:00 EST, [facility], 176, cm, 08/07/22 11:37:00 [...] 11 Refills, Maintenance, 08/07/22 12:12:00 EST, [facility]/pharmacy #[id number], 30, USE 1 SPRAY(S) INTO EACH NOSTRIL TWICE A DAY, 176, cm,08/07/22 11:37:00 EST, Height, 79.8, kg, 07/31/22 2... Start Date: 08/07/22 Status: Ordered folic acid 1 mg oral tablet 1, tablet, By Mouth, Daily, R1., # 30 tablet, Refills 5, Tot. Refills 5, Maintenance, 10/06/22 4:59:00 EDT, Route to Pharmacy Electronically, [facility], 176, cm, 09/07/22 8:56:00 EDT, Height, 82.1, kg, 09/07/22 8:59:00 EDT, Dry Weight Start Date: 10/06/22 Status: Ordered furosemide 20 mg oral tablet 1, tablet, By Mouth, Daily, R1., # 30 tablet, Refills 5, Tot. Refills 5, Maintenance, 09/03/22 14:50:00 EDT, [facility], [facility], 169, cm, 09/03/22 14:21:00 EDT, Height, 69, kg, 08/16/22 1:04:00 EST, Dry Weight Start Date: 09/03/22 Status: Ordered gabapentin 300 mg oral capsule 300 mg, 1, capsule, By Mouth, 2 times a day, note dose/frequency change, # 180 capsule, Refills 4, Tot. Refills 4, Maintenance, 09/03/22 14:55:00 EDT, [email or web address], 169, cm, 09/03/22 14:21:00 EDT, Height, 69, kg... Start Date: 09/03/22 Stop Date: 11/27/23 Status: Ordered hydrOXYzine hydrochloride 10 mg oral tablet 2 tablet, By Mouth, 2 times a day, PRN NEEDED FOR ANXIETY (VIAL), # 30 tablet, 3 Refills, Maintenance, 09/24/22 17:01:00 EDT, [facility], 176, cm, 09/07/22 8:56:00 EDT, Height, 82.1, kg, 09/07/22 8:59:00 EDT, Dry Weight Start Date: 09/24/22 Status: Ordered lactulose 10 gm/15 ml oral syrup 15 mL, By Mouth, 2 times a day, # 120 mL, 6 Refills, Maintenance, 09/22/22 12:15:00 EDT, [facility], 4, TAKE 15ML BY MOUTH TWO TIMES A DAY, 176, cm, 09/07/22 8:56:00 EDT, Height, 82.1, kg, 09/07/22 8:59:00 EDT, Dry Weight Start Date: 09/22/22 Status: Ordered Lidoderm 5% film 1 patch, Topically, Daily, remove patches after 12 hours NSAIDS contraindicated High dose tylenol contraindicated remove patches after 12 hours Nueropathy, # 30 patch, 5 Refills, Maintenance, 09/03/22 16:34:00 EDT, [facility], Partial klaudia... Start Date: 09/03/22 Status: Ordered magnesium oxide 400 mg oral tablet 1 tablet, By Mouth, 2 times a day, # 60 tablet, 11 Refills, Maintenance, 03/13/22 8:37:00 EDT, [facility], 175, cm, 01/06/22 10:34:00 EDT, Height, 78.3, kg, 12/26/21 19:05:00 EDT, Dry Weight Start Date: 03/13/22 Status: Ordered Melatonin 3 mg oral tablet 1 tablet, By Mouth, Daily at bedtime, PRN NEEDED FOR INSOMNIA (PACKAGE IN TRAY)^1R4, # 60 tablet, 5 Refills, Maintenance, 06/12/22 18:11:00 EST, [facility], 60, TAKE 1 TABLET [...] 09/03/22 14:53:00 EDT, Route to Pharmacy Electronically, [facility], Partial fill upon patient request if the prescription is for a schedule II opioid drug... Start Date: 09/03/22 Stop Date: 03/02/23 Status: Ordered PHENobarbital 30 mg oral tablet See Instructions, Taper 09/08-Day 1 -90mg Daily Day 2-3-60mg BID Day 4-5 30mg BID, # 15 tablet, 0 Refills, Maintenance, 09/08/22 15:05:00 EDT, [facility], Partial fill upon patient request if the prescription is for a schedule II op... Start Date: 09/08/22 Status: Ordered pyridoxine 50 mg oral tablet 50 mg, 1, tablet, By Mouth, Daily, for 90 days, # 90 tablet, Refills 4, Tot. Refills 4, Acute 01/15/23 11:42:00 EDT, 10/22/21 11:42:00 EDT, Route to Pharmacy Electronically, [facility], Partial fill upon patient request if [...] 9 Refills, 08/07/22 12:27:00 EST, [facility]/pharmacy #[id number], 28, 1tablet By Mouth Daily, 176, cm, 08/07/22 11:37:00 EST, Height, 79.8, kg, 07/31/22 22:40:00 EST, DryWeight Start Date: 08/07/22 Status: Ordered traZODone 50 mg oral tablet 2 tablets, By Mouth, Daily at bedtime, # 60 each, Refills 5, Tot. Refills 5, Maintenance, 09/03/22 17:13:00 EDT, Route to Pharmacy Electronically, [facility], 169, cm, 09/03/22 14:21:00 EDT, Height, 69, kg, 08/16/22 1:04:00 EST, Dry Weight Start Date: 09/03/22 Status: Ordered Vitamin B1 100 mg oral tablet 1, tablet, By Mouth, Daily, # 90 tablet, Refills 3, Maintenance, 03/13/22 8:37:00 EDT, Route to Pharmacy Electronically, [facility], 175, cm, 01/06/22 10:34:00 EDT, Height, 78.3, kg, 12/26/2218:05:00 EDT, Dry Weight Start Date: 03/13/22 Status: Ordered Xifaxan 550 mg oral tablet 1 tablet, By Mouth, 2 times a day, ^1R1,1R4., # 60 tablet, 3 Refills, Maintenance, 10/01/22 15:19:00 EDT, [facility], 176, cm, 09/07/22 8:56:00 EDT, Height, [...] oldest [Reference Range]: 1 Height 176 cm (10/12/22 9:32 AM) Weight 82 kg (10/12/22 9:32 AM) Body Mass Index [18.5-24.99 kg/m2] 26.47 kg/m2 *H* (10/12/22 9:32 AM) Social History Social History Type Response Smoking Status 10 or more cigarette s (1/2 pack or more)/day in last 30 days entered on: 02/04/19 Sex Patient Care team information Care Team Personnel Name: Alexandra Colmenares RN Position: [facility] ED RN W/OE and Tasks Member Role: Primary Care Nurse Name: Garima Manzano RN Position: [facility] RN Member Role: Primary Care Nurse Name: Malgorzata Marinelli RN Position: [facility] RN Member Role: Primary Care Nurse Name: Joyce Roach RN Position: [facility] RN Member Role: Primary Care Nurse Name: Mary Suazo RN Position: [facility] RN Member Role: Primary Care Nurse Name: Andres Pressley RN Position: [facility] RN Member Role: Primary Care Nurse Name: Jany Baig DO Position: [facility] Primary Care Physician Member Role: PCP Address: Address: [address] [place] [address] [facility] [place] [address]- Name: Neida Ballard RN Position: [facility] RN Member Role: Primary Care Nurse Name: Kaye Payne RN Position: [facility] RN Member Role: Primary Care Nurse Name: Garima Hutchinson Position: [facility] RN Member Role: Primary [...] Role: [employer] Consulting Provider Address: Address: [address] [place] [address] Name: Ge Covarrubias RN Position: [facility] RN Member Role: Primary Care Nurse Name: Orin Elmore RN Position: [facility] ED RN W/OE and Tasks Member Role: Primary Care Nurse Name: Allegra Liu RN Position: [facility] PCO RN Member Role: Primary Care Nurse Name: Shayan Pandya MD Position: [facility] Renal MD Member Role: Lifetime Consulting Physician Address: Address: [address] [place] [address] [address] [facility] [place], [place] [address]- Name: Darlene Rodrigez RN Position: [facility] RN Member Role: Primary Care Nurse Name: Kwan Mills RN Position: [facility] RN Member Role: Primary Care Nurse Name: Dolores Can RN Position: [facility] RN Member Role: Primary Care Nurse Name: Kim Rendon RN Position: [facility] RN Member Role: Primary Care Nurse Name: Monica Rowell RN Position: [facility] RN Member Role: Primary Care Nurse Care Team Related Persons Name: MARLEN CABEZAS Address: home [address] [place] [address] Name: MARLEN CABEZAS Address: home [address] [place] Name: NICK CABEZAS Name: GEMA CABEZAS Address: home [address] [place] [id number]
--- OUTSIDE RECORDS SUMMARY | 2023-12-15 20:54 | XMS_ITS | Continuity of Care Document ---
Author Organization [facility] ter Address [address] [place] [address]- Care Team Providers Care Manager Primary Name Role Phone Jany Baig DO Primary Care Physician Encounter [facility] Date(s): 08/14/22 - 08/14/[address] [address]- Encounter Diagnosis Alcoholism(Final) - 08/14/22 Discharge Disposition: A-D/C Home Attending Physician: Shanice Roldan DO Admitting Physician: Shanice Roldan DO Referring Physician: Not on Staff, Referring [...] Comment: [facility]: [id number] 2Result Comment: [04/29/2017] [id number] 3Admin Note: FLUARIX 4Admin Note: 3 RDINJ 5Admin Note: #2 Medications acetaminophen 500 mg oral tablet 1 tablet, By Mouth, 4 times a day, PRN NEEDED FOR PAIN, MAX 4, PER DAY (VIAL., # 50 tablet, 11 Refills, Maintenance, 03/13/22 8:37:00 EDT, [facility], 175, cm, 01/06/22 10:34:00 EDT, Height, 78.3, kg, 12/26/21 19:05:00 EDT, Dry Weight Start Date: 03/13/22 Status: Ordered amLODIPine 5 mg oral tablet See Instructions, TAKE 1 TABLET BY MOUTH ONCE A DAY^1R1, # 30 tablet, 5 Refills, Maintenance, 05/13/22 16:24:00 EST, [facility], 175, cm, 04/09/22 15:34:00 EDT, Height, 78.3, kg, 12/26/21 19:05:00 EDT, Dry Weight Start Date: 05/13/22 Status: Ordered baclofen 10 mg oral tablet See Instructions, TAKE 1 TABLET BY MOUTH THREE TIMES DAILY, # 90 tablet, Refills 0, Maintenance, 08/07/22 12:26:00 EST, Instructions Replace Required Details, Route to Pharmacy Electronically, [facility], 176, cm, 08/07/22 11:37:00 EST, Height... Start Date: 08/07/22 Status: Ordered cephalexin monohydrate 500 mg oral capsule 1 capsule = 500 mg, By Mouth, 4 times a day, for 10 days, # 40 capsule, 0 Refills, Acute 08/24/22 13:49:00 EDT, 08/14/22 13:49:00 EST, Capsule, [facility] #[id number], Partial fill upon patient request if the prescription is for a schedule II opioid drug.... Start Date: 08/14/22 Stop Date: 08/24/22 Status: Ordered Co Q-10 100 mg oral capsule See Instructions, TAKE 1 CAPSULE BY MOUTH FOUR TIMES DAILY, # 120 capsule, 6 Refills, Maintenance, 08/07/22 12:13:00 EST, [facility], 176, cm, 08/07/22 11:37:00 EST, Height, [...] Gm, 11 Refills, Maintenance, 08/07/22 12:12:00 EST, [facility]/pharmacy #[id number], 30, USE 1 SPRAY(S) INTO EACH NOSTRIL TWICE A DAY, 176, cm,08/07/22 11:37:00 EST, Height, 79.8, kg, 07/31/22 2... Start Date: 08/07/22 Status: Ordered folic acid 1 mg oral tablet 1 mg, 1, tablet, By Mouth, Daily, # 90 tablet, Refills 4, Tot. Refills 4, Maintenance, 10/27/21 10:40:00 EDT, Route to Pharmacy Electronically, [facility], Partial fill upon patient request if the prescription is for a schedule II opioid drug.... Start Date: 10/27/21 Stop Date: 01/20/23 Status: Ordered furosemide 20 mg oral tablet See Instructions, TAKE 1 TABLET BY MOUTH ONCE A DAY^1R1, # 30 tablet, Refills 2, Maintenance, 08/07/22 12:27:00 EST, Instructions Replace Required Details, Route to Pharmacy Electronically, [facility], 176, cm, 08/07/22 11:37:00 EST, Height, 7... Start Date: 08/07/22 Status: Ordered furosemide 20 mg oral tablet 1, tablet, By Mouth, Daily, R1., # 30 tablet, Refills 5, Tot. Refills 5, Maintenance, 08/10/22 16:49:00 EST, Route to Pharmacy Electronically, [facility] #[id number], 176, cm, 08/07/22 11:37:00 EST, Height, 79.8, kg, 07/31/22 22:40:00 EST, Dry Weight Start Date: 08/10/22 Status: Ordered gabapentin 300 mg oral capsule 2, capsule, By Mouth, Daily at bedtime, # 180 capsule, Refills 4, Maintenance, 08/10/22 16:53:00 EST, Route to Pharmacy Electronically, [id number], 176, cm, 08/07/22 11:37:00 EST, Height, 79.8, kg, 07/31/22 22:40:00 EST, Dry Weight Start Date: 08/10/22 Stop Date: 11/08/22 Status: Ordered hydrOXYzine hydrochloride 25 mg oral tablet 1 TO 2 TABLETS, By Mouth, Daily at bedtime, PRN NEEDED FOR ANXIETY (VIAL), # 60 tablet, 11 Refills, Maintenance, 03/13/22 8:38:00 EDT, [facility], 175, cm, 01/06/22 10:34:00 EDT, Height, 78.3, kg, 12/26/21 19:05:00 EDT, Dry Weight Start Date: 03/13/22 Status: Ordered lactulose 10 gm/15 ml oral syrup See Instructions, TAKE 30ML BY MOUTH THREE TIMES DAILY NEEDED TO ACHEIVE 3-4 BOWL MOVEMENTS PER DAY, # 3,000 mL, 10 Refills, [facility], 30, TAKE 30ML BY MOUTH THREE TIMES DAILY NEEDED TO ACHEIVE 3-4 BOWL MOVEMENTS PER DAY, 174, cm, 02/12... Start Date: 07/02/21 Status: Ordered Lidoderm 5% film 1 patch, Topically, Daily, remove patches after 12 hours NSAIDS contraindicated High dose tylenol contraindicated remove patches after 12 hours Rib fracture, # 30 patch, 5 Refills, Maintenance, 08/07/22 12:09:00 EST, [facility] #[id number], Partial f... Start Date: 08/07/22 Status: Ordered magnesium oxide 400 mg oral tablet 1 tablet, By Mouth, 2 times a day, # 60 tablet, 11 Refills, Maintenance, 03/13/22 8:37:00 EDT, [facility], 175, cm, 01/06/22 10:34:00 EDT, Height, 78.3, kg, 12/26/21 19:05:00 EDT, Dry Weight Start Date: 03/13/22 Status: Ordered Melatonin 3 mg oral tablet 1 tablet, By Mouth, Daily at bedtime, PRN NEEDED FOR INSOMNIA (PACKAGE IN TRAY)^1R4, # 60 tablet, 5 Refills, Maintenance, 06/12/22 18:11:00 EST, [facility], 60, TAKE 1 TABLET BY [...] 08/07/22 12:14:00 EST, Route to Pharmacy Electronically, [facility] #[id number], Partial fill upon patient requestif the prescription is for a schedule II opioid remedios... Start Date: 08/07/22 Stop Date: 02/03/23 Status: Ordered Potassium Chloride (Eqv-K-Tab) 20 mEq oral tablet, extended release 2 tablet, By Mouth, Daily, # 180 tablet, 1 Refills, Maintenance, 05/13/22 9:48:00 EST, [facility], 175, cm, 04/09/22 15:34:00 EDT, Height, 78.3, kg, 12/26/21 19:05:00 EDT, Dry Weight Start Date: 05/13/22 Stop Date: 11/09/22 Status: Ordered pyridoxine 50 mg oral tablet 50 mg, 1, tablet, By Mouth, Daily, for 90 days, # 90 tablet, Refills 4, Tot. Refills 4, Acute 01/15/23 11:42:00 EDT, 10/22/21 11:42:00 EDT, Route to Pharmacy Electronically, [facility], Partial fill upon patient request if [...] 90 tablet, 9 Refills, 08/07/22 12:27:00 EST, [facility]/pharmacy #[id number], 28, 1tablet By Mouth Daily, 176, cm, 08/07/22 11:37:00 EST, Height, 79.8, kg, 07/31/22 22:40:00 EST, DryWeight Start Date: 08/07/22 Status: Ordered tranexamic acid 650 mg oral tablet 1 tablet = 650 mg, By Mouth, Daily, # 19 tablet, 0 Refills, Maintenance, 08/01/22 16:17:00 EST, Tablet, [facility] #[id number], Partial fill upon patient request if the prescription is for a schedule II opioid drug., 176, cm, 08/01/22 15:52:00 EST, Height... Start Date: 08/01/22 Stop Date: 08/20/22 Status: Ordered traZODone 50 mg oral tablet 2 TO 3 TABLETS, By Mouth, Daily at bedtime, #28 VIAL)^2R4., # 90 tablet, Refills 5, Maintenance, 06/12/22 18:11:00 EST, Route to Pharmacy Electronically, [facility], 179, cm, 06/08/22 7:37:00EST, Height, 84, kg, 06/01/22 12:27:00 EST, Dry Weight Start Date: 06/12/22 Status: Ordered Vitamin B1 100 mg oral tablet 1, tablet, By Mouth, Daily, # 90 tablet, Refills 3, Maintenance, 03/13/22 8:37:00 EDT, Route to Pharmacy Electronically, [facility], 175, cm, 01/06/22 10:34:00 EDT, Height, 78.3, kg, 12/26/2218:05:00 EDT, Dry Weight Start Date: 03/13/22 Status: Ordered Xifaxan 550 mg oral tablet 1 tablet, By Mouth, 2 times a day, ^1R1,1R4., # 60 tablet, 1 Refills, Maintenance, 06/12/22 18:10:00 EST, [facility], 179, cm, 06/08/22 7:37:00 EST, Height, [...] Exam Date Time Procedure Performing Provider Status 08/14/22 11:42 AM US Doppler Ext Lower Venous Right Michelle Clifford; Auth (Verified) Notes: (US Doppler Ext Lower Venous Right) Reason For Exam: Pain in limb;Other: RESULT: US Doppler Ext Lower Venous Right US Doppler Ext Lower Venous Right Hx of Present Illness: Patient presents from home with right leg pain and etoh. Hx right leg surgical repair in 2021. +pitting edema to bilateral legs, patient endorses hx CHF on diuretics.; Reason: Other:; Pain in limb; Clinical Question(s): Thrombus COMPARISON: Ultrasound Doppler of the lower extremities 09/04/2021. IMAGING TECHNIQUE: Ultrasound of the veins from the groin through the calf was performed using grayscale, color, and spectral Doppler ultrasound assessing for complete compressibility and normal flowcharacteristics. FINDINGS: Common femoral vein: Patent. No thrombosis. Femoral vein: Patent. No thrombosis. Popliteal vein: Patent. No thrombosis. Gastrocnemius veins: The visualized portions are patent without evidence of thrombosis. Peroneal veins: The visualized portions are patent without evidence of thrombosis. Posterior tibial veins: The visualized portions are patent without evidence of thrombosis. Contralateral common femoral vein: Patent. No thrombosis. OTHER FINDINGS: None. IMPRESSION: No evidence of deep venous thrombosis. WSN: [id number] Ordering Physician: Kacey Torres Dictated By: Estela Holt MD Dictated Date/Time: 08/14/22 11:53 a Reviewed By: Estela Holt MD Signed By: Estela Holt MD Signed Date/Time: 08/14/22 11:53 am Transcribed By: MIRNA Transcribed Date/Time: 08/14/22 11:49 am * Exam Date Time Procedure Performing Provider Status 08/14/22 11:[address] Head/Brain W/O Contrast Yen Jules; Auth (Verified) Notes: (CT Head/Brain W/O Contrast) Reason For Exam: Trauma RESULT: CT Head/Brain W/O Contrast CT Head/Brain W/O Contrast INDICATION: Hx of Present Illness: Patient presents from home with right leg pain and etoh. Hx right leg surgical repair in 2021. +pitting edema to bilateral legs, patient endorses hx CHF on diuretics.; Reason: Trauma; Clinical Question(s): Hematoma; Order Comment: TECHNIQUE: Noncontrast head CT using axial technique and reconstructed in axial and coronal planes.Iterative reconstruction techniques are used to optimize dose and image quality. CTDIvol Head: 44.60 mGy, DLP Head: 772 mGy*cm. COMPARISON: 07/30/2022. FINDINGS: Assistant Librarian view findings, lines and tubes: None. BRAIN AND EXTRA-AXIAL SPACES: Again seen extra-axial collection on the right, holohemispheric, which is likely a subdural hygroma/nonacute (chronic density) hematoma. This measures up to 9 mm when measured at series 201 image 22.This is unchanged on direct comparison, when measured on prior study series 202 image 92. There is no layering hyperdensity or internal hyperdensity to suggest an acute on chronic bleeding. There is mild diffuse mass effect on the right hemisphere which is also unchanged with no midline shift. At the left occipital area is mild extra-axial prominence, example series 202 image 86 which is also similar to the prior exam series 201 image 22. No acute parenchymal hemorrhage. No acute extra-axial fluid collection. Mild prominence of the ventricles and sulci consistent with parenchymal volume loss. This is unchanged and greater than expected for patient's age. Mild low-density white matter changes. CALVARIUM, SKULL BASE, AND SOFT TISSUES: No fractures or suspicious bony lesions. The paranasal sinuses and mastoid air cells are clear. Visualized orbits and globes are intact. The extracranial soft tissues are unremarkable. IMPRESSION: No acute intracranial hemorrhage. Holohemispheric right extra-axial collection which is low in attenuation and is unchanged in size and appearance from 07/30/2022, with mild mass effect. This is likely a hygroma/nonacute subdural hematoma. No new internal high attenuation. WSN: [id number] Ordering Physician: Kacey Torres Dictated By: Eden Resendiz MD Dictated Date/Time: 08/14/22 1:17 pm Reviewed By: Eden Resendiz MD Signed By: Eden Resendiz MD Signed Date/Time: 08/14/22 1:17 pm Transcribed By: MIRNA Transcribed Date/Time: 08/14/22 11:46 am * Exam Date Time Procedure Performing Provider Status 08/14/22 11:10 AM Ankle Min 3 Views Right Bein , Echo; A uth (Verified) Notes: (Ankle Min 3 Views Right) Reason For Exam: with Pain;Trauma RESULT: Ankle Min 3 Views Right Ankle Min 3 Views Right INDICATION: Right ankle pain. COMPARISON: 07/30/2022. FINDINGS: No evidence of acute or healing fracture or bone lesion. Intact ankle mortise and talar dome. Unchanged small enthesophyte at the Achilles tendon. Mild soft tissue swelling about the ankle. IMPRESSION: 1. No radiographic evidence of an acute osseous abnormality. 2. Mild soft tissue swelling about the ankle. I have personally reviewed the images and I agree with this report. WSN: [id number] Ordering Physician: Kacey Torres Dictated By: Eben Uribe MD Dictated Date/Time: 08/14/22 11:36 a Reviewed By: Tommy Saleh MD Signed By: Tommy Saleh MD Signed Date/Time: 08/14/22 11:41 am Transcribed By: MIRNA Transcribed Date/Time: 08/14/22 11:22 am * Exam Date Time Procedure Performing Provider Status 08/14/22 11:10 AM XR Hip w/Pelvis 2-3 View Right Bein , Echo; Auth (Verified) Notes: (XR Hip w/Pelvis 2-3 View Right) Reason For Exam: With Pain;Trauma RESULT: XR Hip w/Pelvis 2-3 View Right XR Hip w/Pelvis 2-3 View Right INDICATION: Right hip pain. Patient reports right hip surgical repair 05/2022. COMPARISON: 07/04/2022. FINDINGS: There is no acute fracture or dislocation. Status post ORIF right intertrochanteric fracture with intramedullary eduardo and gamma nails. Progressed bone healing since prior with no evidence of hardware loosening or malfunction. Coil material seen slightly superior to the right femoral head. IMPRESSION: No acute fracture or osseous abnormality. I have personally reviewed the images and I agree with this report. WSN: [id number] Ordering Physician: Kacey Torres Dictated By: Eben Uribe MD Dictated Date/Time: 08/14/22 11:37 a Reviewed By: Tommy Mratinez MD Signed By: Tommy Martinez MD Signed Date/Time: 08/14/22 11:42 am Transcribed By: MIRNA Transcribed Date/Time: 08/14/22 11:20 am * Exam Date Time Procedure Performing Provider Status 08/14/22 11:10 AM Chest 2 Views Frontal and Lat Renny Langston tran; Auth (Verified) Notes: (Chest 2 Views Frontal and Lat) Reason For Exam: Shortness of Breath RESULT: Chest 2 Views Frontal and Lat Chest 2 Views Frontal and Lat INDICATION: Shortness of breath. COMPARISON: 07/30/2022. FINDINGS: LINES AND TUBES: None. LUNGS AND PLEURA: Clear lungs. Normal pulmonary vascularity. No pleural effusion. No pneumothorax. HEART, MEDIASTINUM AND DEEDEE: Heart is normal in size. Normal mediastinal and hilar contour. BONES AND SOFT TISSUES: Bilateral healing/chronic rib fractures, seen on prior. No new fractures. TIPS stent in the right upper quadrant of the abdomen, seen on prior. Embolization coils in the midepigastrium, seen on prior. IMPRESSION: No radiographic evidence of an acute cardiopulmonary process. I have personally reviewed the images and I agree with this report. WSN: [id number] Ordering Physician: Kacey Torres Dictated By: Eben Uribe MD Dictated Date/Time: 08/14/22 11:37 a Reviewed By: Tommy Saleh MD Signed By: Tommy Saleh MD Signed Date/Time: 08/14/22 11:42 am Transcribed By: MIRNA Transcribed Date/Time: 08/14/22 11:16 am Vital Signs Most recent to oldest [Reference Range]: 1 2 Oxygen Saturation [94-100 %] 100 % (08/14/22 12:38 PM) 100 % (08/14/22 10:01 AM) Pulse Rate [55-90 bpm] 97 bpm *H* (08/14/22 12:38 PM) 89 bpm (08/14/22 10:01 AM) Blood Pressure [90-138/55-84 mm Hg] 155/ 90mm Hg *H* (08/14/22 12:38 PM) 162/88mm Hg *H* (08/14/22 10:01 AM) Respiratory Rate [16-30 br/min] 17 br/mi n (08/14/22 12:38 PM) 18 br/min (08/14/22 10:01 AM) Temperature [96.8-100.4 DegF] 98.1 DegF (08/14/22 12:38 PM) 97.8 DegF (08/14/22 10:01 AM) Mode of Delivery (Oxygen) Room air (08/14/22 12:38 PM) Room air (08/14/22 10:01 AM) Blood pressure sites Arm, left (08/14/22 12:38 PM) Arm, left (08/14/22 10:01 AM) Temperature Route Oral (08/14/22 12:38 PM) Oral (08/14/22 10:01 AM) Social History Social History Type Response Smoking Status 10 or more cigarette s (1/2 pack or more)/day in last 30 days entered on: 02/04/19 Sex EKG study * Event Display: ECG 12-Lead Authored Date: Please click on pdf link to open report * Event Display: ECG 12-Lead Authored Date: Ventricular Rate: 90 BPM Atrial Rate: 90 BPM P-R Interval: 164 ms QRS Duration: 82 ms Q-T Interval: 398 ms QTC Calculation(Bazett): 486 ms P Lacrosse: 32 degrees R Lacrosse: 22 degrees T Lacrosse: 28 degrees Normal sinus rhythm Normal ECG When compared with ECG of 14-JUL-2022 15:41, No significant change was found Confirmed by WASHINGTON DAVIES ([id number]) on 08/14/2022 2:02:11 PM [place]: WASHINGTON DAVIES Note * Kacey Fernandes: PERFORM Event Display: Patient Education Leaflets Authored Date: [id number] [facility] [place] Substance Abuse Resources ?? 151 If you need Substance Abuse Resources: ?? Jean Avendano [place] [phone] ?? [facility] [phone] ?? [facility] [phone] ?? [facility] [phone] ?? [facility] [phone] ?? [facility] [place] [phone] ?? [facility] [phone] ?? [facility] [phone] ?? [facility] [phone] ?? [facility] [phone] ?? [facility] [phone] ?? [facility] [phone] ?? [facility] [phone] ?? [facility] [phone] ?? Shubuta Welling [place] [phone] ?? [facility] (13-17 yo) [place] [phone] ?? Oleksandr Avendano (Adolescent) [place] [phone] ? Partial Hospitalization ??? Outpatient therapy for adults and families with substance abuse problems [address] [place] [address] ? Support Services ? [facility] Outreach - Outpatient therapy /support for recovery / transitional housing &&shelters? [address] [place] [address] ? [facility] - women's AA group/street outreach program/health access assistance? [facility] [phone] ? Alcoholic Anonymous - AA program to maintain sobriety/ Alanon-support for families of alcoholics/Alateen-support for children of same [phone] ? [facility] - recovery support services/sober social Opportunities [address] [place] [address] ? * Kacey Fernandes: PERFORM Event Display: Patient Education Leaflets Authored Date: [id number] [facility] [place] Mental Health Providers ?? 146 ?? If you Need a Mental Health Provider ?? Clinical Support Options [address] [place], [place] [phone] ?? Clinical Support Options [address] [place], [place] [phone] ?? [facility] [address] [place], [place] [phone] ?? [facility] [place], [place] [phone] ?? [place] [phone] ?? [facility] [address] [place], [place] [phone] ?? [facility] Behavioral [facility] Central Intake ?? [facility] Behavioral Health Geriatric-psychiatry, Child Evaluations ?? [facility] ( [address] [place], [place] [phone] ?? [facility] [place] [phone] ?? [facility] [address] [place], [place] [phone] ?? [facility] [place], [place] [phone] ?? [facility] [address] [place], [place] [phone] ?? [facility] [address] [facility] [place], [place] [phone] ?? [facility] [address] [place], [place] [phone] ? * Kacey Fernandes: PERFORM Event Display: Patient Education Leaflets Authored Date: [id number] Falls Prevention Initiative Letter ?? [address] [facility] Falls Prevention Initiative (F.P.I) ?? You are qualified to participate in a specialized physical therapy/occupational therapy program to help you prevent falls. ?? This program is designed to teach you how to improve your balance, help with your strength and to be more flexible when you walk. This program also gives you instructions on how to improve your safety in your home. ?? If you are interested, please call [facility] Rehabilitation Care at:?? [phone] (option #3 - Rehabilitation) ? * [facility] , CIS S: TRANSCTommy Farmer MD: VERIFY Eben Uribe MD: SIGN Event Display: Result: Authored Date: [id number] Chest 2 Views Frontal and Lat INDICATION: Shortness of breath. COMPARISON: 07/30/2022. FINDINGS: LINES AND TUBES: None. LUNGS AND PLEURA: Clear lungs. Normal pulmonary vascularity. No pleural effusion. No pneumothorax. HEART, MEDIASTINUM AND DEEDEE: Heart is normal in size. Normal mediastinal and hilar contour. BONES AND SOFT TISSUES: Bilateral healing/chronic rib fractures, seen on prior. No new fractures. TIPS stent in the right upper quadrant of the abdomen, seen on prior. Embolization coils in the midepigastrium, seen on prior. IMPRESSION: No radiographic evidence of an acute cardiopulmonary process. I have personally reviewed the images and I agree with this report. WSN: [id number] Ordering Physician: Kacey Torres Dictated By: Eben Uribe MD Dictated Date/Time: 08/14/22 11:37 a Reviewed By: Tommy Saleh MD Signed By: Tommy Saleh MD Signed Date/Time: 08/14/22 11:42 am Transcribed By: MIRNA Transcribed Date/Time: 08/14/22 11:16 am * Tara , TRAV S: TRANSCRIEstela Machuca MD: VERIFY Event Display: Result: Authored Date: [id number] US Doppler Ext Lower Venous Right Hx of Present Illness: Patient presents from home with right leg pain and etoh. Hx right leg surgical repair in 2021. +pitting edema to bilateral legs, patient endorses hx CHF on diuretics.; Reason: Other:; Pain in limb; Clinical Question(s): Thrombus COMPARISON: Ultrasound Doppler of the lower extremities 09/04/2021. IMAGING TECHNIQUE: Ultrasound of the veins from the groin through the calf was performed using grayscale, color, and spectral Doppler ultrasound assessing for complete compressibility and normal flowcharacteristics. FINDINGS: Common femoral vein: Patent. No thrombosis. Femoral vein: Patent. No thrombosis. Popliteal vein: Patent. No thrombosis. Gastrocnemius veins: The visualized portions are patent without evidence of thrombosis. Peroneal veins: The visualized portions are patent without evidence of thrombosis. Posterior tibial veins: The visualized portions are patent without evidence of thrombosis. Contralateral common femoral vein: Patent. No thrombosis. OTHER FINDINGS: None. IMPRESSION: No evidence of deep venous thrombosis. WSN: [id number] Ordering Physician: Kacey Torres Dictated By: Estela Holt MD Dictated Date/Time: 08/14/22 11:53 a Reviewed By: Estela Holt MD Signed By: Estela Holt MD Signed Date/Time: 08/14/22 11:53 am Transcribed By: MIRNA Transcribed Date/Time: 08/14/22 11:49 am XR Ankle - right GE 3 Views * [facility] , CIS S: TRANSCRIBE Tommy Saleh MD: VERIFY Eben Uribe MD: SIGN Event Display: Result: Authored Date: [id number] Ankle Min 3 Views Right INDICATION: Right ankle pain. COMPARISON: 07/30/2022. FINDINGS: No evidence of acute or healing fracture or bone lesion. Intact ankle mortise and talar dome. Unchanged small enthesophyte at the Achilles tendon. Mild soft tissue swelling about the ankle. IMPRESSION: 1. No radiographic evidence of an acute osseous abnormality. 2. Mild soft tissue swelling about the ankle. I have personally reviewed the images and I agree with this report. WSN: [id number] Ordering Physician: Kacey Torres Dictated By: Eben Uribe MD Dictated Date/Time: 08/14/22 11:36 a Reviewed By: Tommy Saleh MD Signed By: Tommy Saleh MD Signed Date/Time: 08/14/22 11:41 am Transcribed By: MIRNA Transcribed Date/Time: 08/14/22 11:22 am XR Pelvis and Hip - right Views * [facility] , CIS S: TRANSCRIBE Tommy Martinez MD: VERIFY Eben Uribe MD: SIGN Event Display: Result: Authored Date: [id number] XR Hip w/Pelvis 2-3 View Right INDICATION: Right hip pain. Patient reports right hip surgical repair 05/2022. COMPARISON: 07/04/2022. FINDINGS: There is no acute fracture or dislocation. Status post ORIF right intertrochanteric fracture with intramedullary eduardo and gamma nails. Progressed bone healing since prior with no evidence of hardware loosening or malfunction. Coil material seen slightly superior to the right femoral head. IMPRESSION: No acute fracture or osseous abnormality. I have personally reviewed the images and I agree with this report. WSN: [id number] Ordering Physician: Kacey Torres Dictated By: Eben Uribe MD Dictated Date/Time: 08/14/22 11:37 a Reviewed By: Tommy Martinez MD Signed By: Tommy Martinez MD Signed Date/Time: 08/14/22 11:42 am Transcribed By: MIRNA Transcribed Date/Time: 08/14/22 11:[address] Head WO contrast * BHSPowerscribe , CIS S: RACHEL Resendiz MD, Eden: VERIFY Event Display: Result: Authored Date: [id number] CT Head/Brain W/O Contrast INDICATION: Hx of Present Illness: Patient presents from home with right leg pain and etoh. Hx right leg surgical repair in 2021. +pitting edema to bilateral legs, patient endorses hx CHF on diuretics.; Reason: Trauma; Clinical Question(s): Hematoma; Order Comment: TECHNIQUE: Noncontrast head CT using axial technique and reconstructed in axial and coronal planes.Iterative reconstruction techniques are used to optimize dose and image quality. CTDIvol Head: 44.60 mGy, DLP Head: 772 mGy*cm. COMPARISON: 07/30/2022. FINDINGS: Assistant Librarian view findings, lines and tubes: None. BRAIN AND EXTRA-AXIAL SPACES: Again seen extra-axial collection on the right, holohemispheric, which is likely a subdural hygroma/nonacute (chronic density) hematoma. This measures up to 9 mm when measured at series 201 image 22.This is unchanged on direct comparison, when measured on prior study series 202 image 92. There is no layering hyperdensity or internal hyperdensity to suggest an acute on chronic bleeding. There is mild diffuse mass effect on the right hemisphere which is also unchanged with no midline shift. At the left occipital area is mild extra-axial prominence, example series 202 image 86 which is also similar to the prior exam series 201 image 22. No acute parenchymal hemorrhage. No acute extra-axial fluid collection. Mild prominence of the ventricles and sulci consistent with parenchymal volume loss. This is unchanged and greater than expected for patient's age. Mild low-density white matter changes. CALVARIUM, SKULL BASE, AND SOFT TISSUES: No fractures or suspicious bony lesions. The paranasal sinuses and mastoid air cells are clear. Visualized orbits and globes are intact. The extracranial soft tissues are unremarkable. IMPRESSION: No acute intracranial hemorrhage. Holohemispheric right extra-axial collection which is low in attenuation and is unchanged in size and appearance from 07/30/2022, with mild mass effect. This is likely a hygroma/nonacute subdural hematoma. No new internal high attenuation. WSN: [id number] Ordering Physician: Kacey Torres Dictated By: Eden Resendiz MD Dictated Date/Time: 08/14/22 1:17 pm Reviewed By: Eden Resendiz MD Signed By: Eden Resendiz MD Signed Date/Time: 08/14/22 1:17 pm Transcribed By: MIRNA Transcribed Date/Time: 08/14/22 11:46 am Patient Care team information Care Team Personnel Name: Alexandra Colmenares RN Position: [facility] ED RN W/OE and Tasks Member Role: Primary Care Nurse Name: Garima Manzano RN Position: [facility] RN Member Role: Primary Care Nurse Name: Malgorzata Marinelli RN Position: S RN Member Role: Primary Care Nurse Name: Joyce Roach RN Position: [facility] RN Member Role: Primary Care Nurse Name: Mary Suazo RN Position: [facility] RN Member Role: Primary Care Nurse Name: Danyel Davis RN Position: [facility] RN Member Role: Primary Care Nurse Name: Andres Pressley RN Position: [facility] RN Member Role: Primary Care Nurse Name: Jany Baig DO Position: [facility] Primary Care Physician Member Role: PCP Address: Address: [address] [place] [address] [facility] [place] [address]- Name: Neida Ballard RN Position: [facility] RN Member Role: Primary Care Nurse Name: Kaye Payne RN [facility] Role: Lifetime Consulting Provider Address: Address: [address] [place] [address]- Name: Ge Covarrubias RN Position: [facility] RN Member Role: Primary Care Nurse Name: Orin Elmore RN Position: [facility] ED RN W/OE and Tasks Member Role: Primary Care Nurse Name: Allegra Liu RN Position: [facility] PCO RN Member Role: Primary Care Nurse Name: Shayan Pandya MD Position: [facility] Renal MD Member Role: Lifetime Consulting Physician Address: Address: [address] [facility], [place] [address]- Name: Darlene Rodrigez RN Position: [facility] RN Member Role: Primary Care Nurse Name: Kwan Mills RN Position: [facility] RN Member Role: Primary Care Nurse Name: Dolores Can RN Position: [facility] RN Member Role: Primary Care Nurse Name: Kim Rendon RN Position: [facility] RN Member Role: Primary Care Nurse Name: Monica Rowell RN Position: [facility] RN Member Role: Primary Care Nurse Name: Shanice Roldan DO Position: [facility] ED Medicine MD Member Role: Admitting Physician Address: Address: [address] [place] [address]- Name: Lamar Urrutia RN Position: [facility] ED RN W/OE and Tasks Member Role: Patient Care Provider Name: Omar Robbins Position: [facility] ED TA [facility] Name: Kacey Fernandes Position: [facility] Associate Professional Member Role: ED Physician Block Chopper Hand Address: Address: [address] [place] [id number]- Care Team Related Persons Name: MARLEN CABEZAS Address: home [address] [place], [place] Name: MARLEN CABEZAS Address: home [address] [place], [place] Name: NCIK CABEZAS Name: GEMA CABEZAS Address: [address] [place] [address]
--- OUTSIDE RECORDS SUMMARY | 2023-12-15 20:54 | XMS_ITS | Continuity of Care Document ---
Author Organization [facility] ter Address [address] [place] [address]- Care Team Providers Care Acetylene Operator Name Role Phone Jany Baig DO Primary Care Physician Encounter [facility] Date(s): 08/21/23 - 08/22/23 [facility] [address] [place] [id number]- Encounter Diagnosis Alcohol intoxication(Final) - 08/22/23 Right hip pain(Final) - 08/22/23 Right knee pain(Final) - 08/22/23 Discharge Disposition: A-D/C Home Attending Physician: Fernando Charlton MD Admitting Physician: Fernando Charlton MD Referring Physician: Not on Staff, Referring [...] 04/29/17 Gi cleopatra influenza virus vaccine, inactivated 11/2/16 Give n influenza virus vaccine, inactivated 03/16/15 [...] 1Result Comment: [facility]: 58514-693-33 2Result Comment: [04/29/2017] [id number] 3Admin Note: FLUARIX 4Admin Note: 3 RDINJ 5Admin Note: #2 Medications acamprosate 333 mg oral delayed release tablet 2 tablet = 666 mg, By Mouth, 3 times a day, # 180 tablet, 1 Refills, Maintenance, 07/28/23 11:04:00EST, EC Tablet, [facility], Partial fill upon patient request if [...] tablet, 2 Refills, Maintenance, 07/28/23 11:06:00 EST, [facility], 175, cm, 07/28/23 9:11:00 EST, Height, [...] 07/28/23 11:10:00 EST, Route to Pharmacy Electronically, [facility], Partial fill upon patient request if [...] Gm, 12 Refills, Maintenance, 07/28/23 11:06:00 EST, [facility], 28, APPLY TOPICALLY TO AFFECTED AREA(S) [...] Gm, 1 Refills, Maintenance, 07/28/23 12:07:00 EST, [facility], 30, USE 1 SPRAY(S) INTO EACH [...] 07/28/23 12:08:00 EST, Route to Pharmacy Electronically, [facility], 175, cm, 07/28/23 9:11:00 EST, Height, 61.3, kg, 07/12/23 23:27:00 EST, Dry Weight Start Date: 07/28/23 Status: Ordered furosemide 20 mg oral tablet 20 mg, 1, tablet, By Mouth, Every other day, # 30 tablet, Refills 1, Tot. Refills 1, Maintenance, 07/28/23 12:08:00 EST, Route to Pharmacy Electronically, [facility], Partial fill upon patient request if the prescription is for a schedule II... Start Date: 07/28/23 Status: Ordered gabapentin 300 mg oral capsule 300 mg, 1, capsule, By Mouth, Daily at bedtime, note dose/frequency change, # 30 capsule, Refills 1, Tot. Refills 1, Maintenance, 07/28/23 12:09:00 EST, Route to Pharmacy Electronically, [facility], 175, cm, 07/28/23 9:11:00 EST, Height, [...] tablet, 3 Refills, Maintenance, 07/28/23 12:10:00 EST, [facility], 175, cm, 07/28/23 9:11:00 EST, Height, 61.3, kg,07/12/23 23:27:00 EST, Dry Weight Start Date: 07/28/23 Status: Ordered lactulose 10 gm/15 ml oral syrup 30 mL = 20 Gm, By Mouth, 3 times a day, for 30 days, # 2,700 mL, 2 Refills, Acute 10/26/23 12:13:00EDT, 07/28/23 12:13:00 EST, Syrup, [facility], Partial fill upon patient request if [...] 60 tablet, 11 Refills, Maintenance,07/28/23 12:09:00 EST, [facility], 175, cm, 07/28/23 9:11:00 EST, Height, [...] tablet, 5 Refills, Maintenance, 07/28/23 12:09:00 EST, [facility], 60, 1 tablet By Mouth Daily [...] 07/28/23 12:11:00 EST, Route to Pharmacy Electronically, [facility], 175, cm, 07/28/23 9:11:00EST, Height, 61.3, [...] 07/28/23 12:12:00 EST, Route to Pharmacy Electronically, [facility], 175, cm, 07/28/23 9:11:00 EST, Height, [...] 07/28/23 12:12:00 EST, Route to Pharmacy Electronically, [facility], 175, cm, 07/28/23 9:11:00 EST, Height, [...] 02/09/23 23:18:00 EDT, Route to Pharmacy Electronically, [facility], 175, cm, 12/03/22 11:50:00 EDT, Height, 88.9, kg, 10/21/22 20:41:00 EDT, Dry Weight Start Date: 02/09/23 Status: Ordered Vitamin B1 100 mg oral tablet 1, tablet, By Mouth, Daily, # 90 tablet, Refills 3, Tot. Refills 3, Maintenance, 07/28/23 12:12:00 EST, Route to Pharmacy Electronically, [facility], 175, cm, 07/28/23 9:11:00 EST, Height, [...] 07/28/23 12:11:00 EST, Route to Pharmacy Electronically, [facility], 175, cm, 07/28/23 9:11:00 EST, Height, [...] each, 1 Refills, Maintenance, 07/28/23 14:33:00 EST, [facility], 175, cm, 07/28/23 9:11:00 EST, Height, [...] Exam Date Time Procedure Performing Provider Status 08/22/23 12:49 AM XR Hip w/Pelvis 2-3 View Right Ariela Salomon; Tanna (Verified) Notes: (XR Hip w/Pelvis 2-3 View Right) Reason For Exam: With Pain;Trauma RESULT: XR Hip w/Pelvis 2-3 View Right XR Hip w/Pelvis 2-3 View Right Reason: Trauma; With Pain; Clinical Question(s): Fracture COMPARISON: 03/19/2023 FINDINGS: 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 No acute fracture. Similar fragmentation of the greater trochanter and mild lucency surrounding thelateral aspect of the screws. There is no acute fracture or dislocation. No hip dislocation. Tiny focal coil material seen at the subcutis soft tissues at the level of the right mid pelvis, as before. IMPRESSION: No acute fracture. No radiographic change in appearance of right hip, including prior hardware with lucency at the prosthetic screws and incomplete fusion of osseous fragment at the greater trochanter. WSN: [id number] Ordering Physician: Charmaine Covarrubias Dictated By: Eden Resendiz MD Dictated Date/Time: 08/22/23 8:27 am Reviewed By: Eden Resendiz MD Signed By: Eden Resendiz MD Signed Date/Time: 08/22/23 8:27 am Transcribed By: MIRNA Transcribed Date/Time: 08/22/23 8:20 am * Exam Date Time Procedure Performing Provider Status 08/22/23 12:49 AM Knee 1 or 2 Views Right Keren Anaya; Tanna (Verified) Notes: (Knee 1 or 2 Views Right) Reason For Exam: with Pain;Trauma RESULT: Knee 1 or 2 Views Right Knee 1 or 2 Views Right, 2 views Reason: Trauma; with Pain; Clinical Question(s): Fracture COMPARISON: None. FINDINGS: No acute fracture. Mild tricompartmental degenerative osteoarthritis but no evidence of osteochondral defect or intra-articular loose body. Mild prepatellar soft tissue swelling. No knee joint effusion. IMPRESSION: No acute fracture. WSN: [id number] Ordering Physician: Charmaine Covarrubias Dictated By: Eden Resendiz MD Dictated Date/Time: 08/22/23 7:05 am Reviewed By: Eden Resendiz MD Signed By: Eden Resendiz MD Signed Date/Time: 08/22/23 7:05 am Transcribed By: MIRNA Transcribed Date/Time: 08/22/23 7:05 am Vital Signs Most recent to oldest [Reference Range]: 1 2 3 Oxygen Saturation [94-100 %] 98 % (08/22/23:31 AM) 100 % (08/22/23:01 AM) 95 % (08/22/23 12:05 AM) Pulse Rate [55-90 bpm] 87 bpm (08/22/23:31 AM) 82 bpm (08/22/23:01 AM) 92 bpm *H* (08/22/23 12:05 AM) Blood Pressure [90-138/55-84 mm Hg] 127/78mm Hg (08/22/23:31 AM) 127/74mm Hg (08/22/23:01 AM) 126/72mm Hg (08/22/23 12:05 AM) Respiratory Rate [16-30 br/min] 19 br/min (08/22/23:31 AM) 16 br/min (08/22/23 4:01 AM) 20 br/min (08/22/23 12:05 AM) Temperature [96.8-100.4 DegF] 97.7 DegF (08/22/23:31 AM) 97.8 DegF (08/22/23 4:01 AM) 97.6 DegF (08/22/23 12:05 AM) Mode of Delivery (Oxygen) Room air (08/22/23 6:31 AM) Room air (08/22/23 4:01 AM) Room air (08/22/23 12:05 AM) Blood pressure sites Arm, left (08/22/23:31 AM) Arm, left (08/22/23 4:01 AM) Temperature Route Oral (08/22/23:31 AM) Oral (08/22/23 4:01 AM) Oral (08/22/23 12:05 AM) Social History Social History Type Response Smoking Status 10 or more cigarette s (1/2 pack or more)/day in last 30 days entered on: 02/04/19 Sex Note * Charmaine Covarrubias MD: PERFORM Event Display: Patient Education Leaflets Authored Date: [id number] Alcohol Intoxication ?? [id number] Alcohol Intoxication Alcohol intoxication is very serious. [...] A.A. meetings near you at www.aa.org. ??? Al-Anon. ?? Gives support to families at www.al-anon.org . Or call 488-692-5906. ??? SMART Recovery ( Self- Management and Recovery Training). A nationwide abstinence-oriented support group for people with addictive issues. This free program is focused on motivation to change, urge control, and living a balanced life. For more information and meetings near you, go to www.[employer].org/ ??? Substance Abuse and Mental Health Services Administration (SAMHSA) Treatment Flat Lock Operator. Free information on treatment resources in your area at https://findtreatment.gov/. Or call 708-487-6947. Call 911 Call 911 if any of [...] vomiting ?? Last Reviewed Date: 2021 ?? 9232-7028 [employer]. All rights reserved. This information is not intended as a substitute for professional medical care. Always follow your healthcare professional's instructions. ?? Patient Care team information Care Team Personnel Name: Shira Galindo RN Position: [facility] RN Member Role: Primary Care Nurse Name: Lisa Nunez RN Position: S RN Member Role: Primary Care Nurse Name: Alexandra Colmenares RN Position: [facility] ED RN W/OE and Tasks Member Role: Primary Care Nurse Name: Garima Manzano RN Position: [facility] RN Member Role: Primary Care Nurse Name: Malgorzata Marinelli RN Position: S RN Member Role: Primary Care Nurse Name: Joyce Roach RN Position: [facility] ED RN W/OE and Tasks Member Role: Primary Care Nurse Name: Mary Suazo RN Position: [facility] RN Member Role: Primary Care Nurse Name: Lucina Peralta RN Position: [facility] RN Member Role: Primary Care Nurse Name: Maria Esther Craig LPN Position: [facility] RN Member Role: Primary Care Nurse Name: Andres Pressley RN Position: [facility] ED RN W/OE and Tasks Member Role: Primary Care Nurse Name: Jany Baig DO Position: [facility] Physician - Primary Care Member Role: PCP Address: Address: [address] [place] [address] Adult [facility] Pediatric Medicine [place], [place] [address] Name: Kaye Payne RN Position: S RN Member Role: Primary Care Nurse Name: Garima Curry RN Position: S RN Member Role: Primary Care Nurse Name: Malgorzata Austin Position: S RN Member Role: Primary Care Nurse Name: Ibeth Adams RN Position: [facility] RN Member [...] Care Nurse Name: Ashok Kevin RN Position: [facility] RN Member Role: Primary Care Nurse Name: Cody Garcia Position: [facility] Associate Professional Member Role: Lifetime Consulting Provider Address: Address: [address] [place] [address] Name: Paige Nascimento RN Position: [facility] RN Member Role: Primary Care Nurse Name: Ge Covarrubias RN Position: [facility] RN Member Role: Primary Care Nurse Name: Orin Elmore RN Position: [facility] ED RN W/OE and Tasks Member Role: Primary Care Nurse Name: Allegra Liu RN Position: [facility] SN RN Member Role: Primary Care Nurse Name: Shayan Pandya MD Position: [facility] Renal MD Member Role: Lifetime Consulting Physician Address: Address: [address] [place] [address] [address] [facility], [address] Name: Kimberley Pittman RN Position: [facility] RN Member Role: Primary Care Nurse Name: Darlene Rodrigez RN Position: [facility] RN Member Role: Primary Care Nurse Name: Dixie Duke RN Position: [facility] RN Member Role: Primary Care Nurse Name: Kwan Mills RN Position: [facility] ED RN W/OE and Tasks Member Role: Primary Care Nurse Name: Ingrid Verdugo RN Position: [facility] RN Member Role: Primary Care Nurse Name: Monica Rowell RN Position: [facility] RN Member Role: Primary Care Nurse Name: Jimi Fitzpatrick RN Position: [facility] RN Member Role: Primary Care Nurse Care Team Related Persons Name: MARLEN CABEZAS Address: home [address] [place] [place] [address] Name: RAULITO MARLEN Address: home [address] [place] [address] Name: NICK CABEZAS Name: GEMA CABEZAS Address: [address] [place] [address] Name: ELTON CHENG Address: home [address] [place] [address]
--- OUTSIDE RECORDS SUMMARY | 2023-12-15 20:54 | XMS_ITS | Continuity of Care Document ---
Author Organization [facility] Address [address] [place] [address]- Care Team Providers Care Director Digital Marketing Name Role Phone Jany Baig DO Primary Care Physician Encounter [facility] Date(s): 07/06/23 - 08/05/23 [facility] [address] [place], [place] [address] Allergies, Adverse Reactions, Alerts Substance Reaction Severity [...] Give n 1Result Comment: [facility]: [id number] 2Result Comment: [04/29/2017] [id number] 3Admin Note: FLUARIX 4Admin Note: 3 RDINJ 5Admin Note: #2 Medications acamprosate 333 mg oral delayed release tablet 2 tablet = 666 mg, By Mouth, 3 times a day, # 180 tablet, 1 Refills, Maintenance, 07/28/23 11:04:00EST, EC Tablet, [facility], Partial fill upon patient request if [...] tablet, 2 Refills, Maintenance, 07/28/23 11:06:00 EST, [facility], 175, cm, 07/28/23 9:11:00 EST, Height, 61.3, kg, 07/12/23 23:27:00 EST, Dry Weight Start Date: 07/28/23 Status: Ordered amLODIPine 5 mg oral tablet 1 tablet, By Mouth, Daily, ^1R1., # 30 tablet, 2 Refills, Maintenance, 06/02/23 8:00:00 EST, [facility], 175, cm, 03/22/23 6:50:00 [...] 07/28/23 11:10:00 EST, Route to Pharmacy Electronically, [facility], Partial fill upon patient request if [...] Gm, 12 Refills, Maintenance, 07/28/23 11:06:00 EST, [facility], 28, APPLY TOPICALLY TO AFFECTED AREA(S) [...] Gm, 1 Refills, Maintenance, 07/28/23 12:07:00 EST, [facility], 30, USE 1 SPRAY(S) INTO EACH [...] 07/28/23 12:08:00 EST, Route to Pharmacy Electronically, [facility], 175, cm, 07/28/23 9:11:00 EST, Height, 61.3, kg, 07/12/23 23:27:00 EST, Dry Weight Start Date: 07/28/23 Status: Ordered furosemide 20 mg oral tablet 20 mg, 1, tablet, By Mouth, Every other day, # 30 tablet, Refills 1, Tot. Refills 1, Maintenance, 07/28/23 12:08:00 EST, Route to Pharmacy Electronically, [facility], Partial fill upon patient request if the prescription is for a schedule II... Start Date: 07/28/23 Status: Ordered gabapentin 300 mg oral capsule 300 mg, 1, capsule, By Mouth, Daily at bedtime, note dose/frequency change, # 30 capsule, Refills 1, Tot. Refills 1, Maintenance, 07/28/23 12:09:00 EST, Route to Pharmacy Electronically, [facility], 175, cm, 07/28/23 9:11:00 EST, Height, [...] tablet, 3 Refills, Maintenance, 07/28/23 12:10:00 EST, [facility], 175, cm, 07/28/23 9:11:00 EST, Height, 61.3, kg,07/12/23 23:27:00 EST, Dry Weight Start Date: 07/28/23 Status: Ordered lactulose 10 gm/15 ml oral syrup 30 mL = 20 Gm, By Mouth, 3 times a day, for 30 days, # 2,700 mL, 2 Refills, Acute 10/26/23 12:13:00EDT, 07/28/23 12:13:00 EST, Syrup, [facility], Partial fill upon patient request if [...] 60 tablet, 11 Refills, Maintenance,07/28/23 12:09:00 EST, [facility], 175, cm, 07/28/23 9:11:00 EST, Height, [...] tablet, 5 Refills, Maintenance, 07/28/23 12:09:00 EST, [facility], 60, 1 tablet By Mouth Daily [...] 07/28/23 12:11:00 EST, Route to Pharmacy Electronically, [facility], 175, cm, 07/28/23 9:11:00EST, Height, 61.3, [...] 07/28/23 12:12:00 EST, Route to Pharmacy Electronically, [facility], 175, cm, 07/28/23 9:11:00 EST, Height, 61.3, kg, 07/12/23 23:27:00 EST, Dry Weight Start Date: 07/28/23 Status: Ordered spironolactone 25 mg oral tablet 1, tablet, By Mouth, Daily, ^1R2., # 30 tablet, Refills 5, Tot. Refills 5, Maintenance, 04/14/23 12:41:00 EDT, Route to Pharmacy Electronically, [facility], 175, cm, 03/22/23 6:50:00 EDT, Height, 77.5, kg, 03/20/23 11:30:00 EDT, Dry Weight Start Date: 04/14/23 Status: Ordered Tab-A-Jesse oral tablet 1 tablet, By Mouth, Daily, R1., # 30 tablet, 5 Refills, Maintenance, 05/06/23 19:16:00 EST, [facility], 30, TAKE 1 TABLET [...] 02/26/23 10:11:00 EDT, Route to Pharmacy Electronically, [facility], 175, cm, 12/03/22 11:50:00 EDT, Height,84, kg, 02/12/23 11:30:00 EDT, Dry Weight Start Date: 02/26/23 Status: Ordered traZODone 50 mg oral tablet 2, tablet, By Mouth, Daily at bedtime, ^2R4., # 60 tablet, Refills 5, Tot. Refills 5, Maintenance, 07/28/23 12:12:00 EST, Route to Pharmacy Electronically, [facility], 175, cm, 07/28/23 9:11:00 EST, Height, [...] 02/09/23 23:18:00 EDT, Route to Pharmacy Electronically, [facility], 175, cm, 12/03/22 11:50:00 EDT, Height, 88.9, kg, 10/21/22 20:41:00 EDT, Dry Weight Start Date: 02/09/23 Status: Ordered Vitamin B1 100 mg oral tablet 1, tablet, By Mouth, Daily, # 90 tablet, Refills 3, Tot. Refills 3, Maintenance, 07/28/23 12:12:00 EST, Route to Pharmacy Electronically, [facility], 175, cm, 07/28/23 9:11:00 EST, Height, 61.3, kg, 07/12/23 23:27:00 EST, Dry Weight Start Date: 07/28/23 Status: Ordered Vitamin B6 50 mg oral tablet 1, tablet, By Mouth, Daily, R1., # 90 tablet, Refills 4, Maintenance, 11/16/22 13:39:00 EDT, Route to Pharmacy Electronically, [facility], 175, cm, 11/13/22 10:42:00 EDT, Height, 88.9, kg, 10/21/22 20:41:00 EDT, Dry Weight Start Date: 11/16/22 Status: Ordered Vitamin B6 50 mg oral tablet 1, tablet, By Mouth, Daily, R1., # 90 tablet, Refills 4, Tot. Refills 4, Maintenance, 07/28/23 12:11:00 EST, Route to Pharmacy Electronically, [facility], 175, cm, 07/28/23 9:11:00 EST, Height, [...] each, 1 Refills, Maintenance, 07/28/23 14:33:00 EST, [facility], 175, cm, 07/28/23 9:11:00 EST, Height, [...] Care Nurse Name: Alexandra Colmenares RN Position: [facility] ED RN W/OE and Tasks Member Role: Primary Care Nurse Name: Garima Manzano RN Position: [facility] RN Member Role: Primary Care Nurse Name: Malgorzata Marinelli RN Position: [facility] RN Member Role: Primary Care Nurse Name: Joyce Roach RN Position: [facility] ED RN W/OE and Tasks Member Role: Primary Care Nurse Name: Mary Suazo RN Position: [facility] RN Member Role: Primary Care Nurse Name: Lucina Peralta RN Position: [facility] RN Member Role: Primary Care Nurse Name: Maria Esther Craig LPN Position: [facility] RN Member Role: Primary Care Nurse Name: Andres Pressley RN Position: [facility] ED RN W/OE and Tasks Member Role: Primary Care Nurse Name: Jany Baig DO Position: [facility] Physician - Primary Care Member Role: PCP Address: Address: [address] [place] [address] Adult [facility] [place] [address]- Name: Kaye Payne RN Position: [facility] RN Member Role: Primary Care Nurse Name: Garima Curry RN Position: [facility] RN Member Role: Primary Care Nurse Name: Malgorzata Austin Position: [facility] RN Member Role: Primary Care Nurse Name: Ibeth Adams RN Position: [facility] RN Member Role: Primary Care Nurse Name: Torrie Hernandez RN Position: [facility] OB RN Member Role: Primary Care Nurse Name: Gretchen Knutson RN Position: [facility] SN RN Member Role: Primary Care Nurse Name: Aislinn Mckee RN Position: [facility] RN Member Role: Primary Care Nurse Name: Ashley Mcelroy Position: [facility] RN Member Role: Primary Care Nurse Name: Ashok Kevin RN Position: [facility] RN Member Role: Primary Care Nurse Name: Cody Garcia Position: [facility] Associate Professional Member Role: [employer] Provider Address: Address: [address] [place] [address]- Name: Paige Nascimento RN Position: [facility] RN Member Role: Primary Care Nurse Name: Ge Covarrubias RN Position: [facility] RN Member Role: Primary Care Nurse Name: Orin Elmore RN Position: [facility] ED RN W/OE and Tasks Member Role: Primary Care Nurse Name: Noe LOUIE, Allegra Elliott Position: [facility] AMB Nurse Member Role: Primary Care Nurse Name: Shayan Pandya MD Position: [facility] Renal MD Member Role: [employer]etime Consulting Physician Address: Address: [address] [facility], [place] [address]- Name: Kimberley Pittman RN Position: [facility] RN Member Role: Primary Care Nurse Name: Darlene Rodrigez RN Position: [facility] RN Member Role: Primary Care Nurse Name: Dixie Duke RN Position: [facility] RN Member Role: Primary Care Nurse Name: Kwan Mills RN Position: [facility] ED RN W/OE and Tasks Member Role: Primary Care Nurse Name: Ingrid Verdugo RN Position: [facility] RN Member Role: Primary Care Nurse Name: Monica Rowell RN Position: [facility] RN Member Role: Primary Care Nurse Name: Jimi Fitzpatrick RN Position: [facility] RN Member Role: Primary Care Nurse Care Team Related Persons Name: CAWUMARLEN Address: [address] [place] [address] Name: MARLEN CABEZAS Address: [address] [place] [address] Name: NICK CABEZAS Name: GEMA CABEZAS Address: [address] [place] [address] Name: ELTON CHENG Address: home [address] [place] [id number]
[2023-12-15 20:55] LABS: Alanine Aminotransferase 35 U/L (0-40); Albumin Level 3.3 g/dL (3.5-5.0); Alkaline Phosphatase 140 U/L (39-117); Anion Gap 14 (12-20); Aspartate Amino Transferase 45 U/L (5-37); Bilirubin Direct 0.5 mg/dL (0.0-0.5); Bilirubin Total 1.3 mg/dL (0.0-1.0); Blood Urea Nitrogen 5 mg/dL (9-16); Calcium 8.9 mg/dL (8.4-10.2); Carbon Dioxide 17 mmol/L (22-29); Chloride 115 mmol/L (96-108); Creatinine Clr Calc Pharmacy 113.3; Estimated Glomerular Filt Rate > 60; Ethanol 130 mg/dL; Glucose Random 100 mg/dL (60-115); Lipase 37 U/L (8-78); Potassium 3.4 mmol/L (3.3-5.1); Sodium 143 mmol/L (135-145); Total Protein 6.7 g/dL (6.5-8.0)
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
--- OUTSIDE RECORDS SUMMARY | 2023-12-15 20:55 | XMS_ITS | Continuity of Care Document ---
Author Organization [facility] Address [address] [place] [address]- Care Team Providers Care Trauma Director Name Role Phone Jany Baig DO Primary Care Physician Encounter [facility] Date(s): 12/23/22 - 01/22/23 [facility] [address] [place] [address]- Allergies, Adverse Reactions, Alerts Substance Reaction Severity [...] 08/02/12 Give n 1Result Comment: [facility]: [id number] 2Result Comment: [04/29/2017] [id number] 3Admin Note: FLUARIX 4Admin Note: 3 RDINJ 5Admin Note: #2 Medications acamprosate 333 mg oral delayed release tablet 1 tablet = 333 mg, By Mouth, 3 times a day, # 42 tablet, 4 Refills, Maintenance, 11/05/22 11:31:00 EDT, EC Tablet, [facility], Partial fill upon patient request if the prescription is for a schedule II opioid drug., 175, cm, 11/05/22 10:21:00... Start Date: 11/05/22 Stop Date: 01/14/23 Status: Ordered amLODIPine 5 mg oral tablet 1 tablet, By Mouth, Daily, ^1R1., # 30 tablet, 5 Refills, Maintenance, 12/22/22 7:20:00 [facility], cm, 12/03/22 11:50:00 EDT, Height, 88.9, kg, 10/21/22 20:41:00 EDT, Dry Weight Start Date: 12/22/22 Status: Ordered baclofen 10 mg oral tablet See Instructions, TAKE ONE TABLET BY MOUTH THREE TIMES A DAY ^1R1,1R2,1R4, # 90 tablet, Refills 5, Tot. Refills 5, Maintenance, 01/14/23 17:55:00 EDT, Instructions Replace Required Details, [facility], [facility], cm... Start Date: 01/14/23 Status: [...] capsule, 6 Refills, Maintenance, 12/03/22 12:13:00 EDT, [facility], 175, cm, [...] Gm, 0 Refills, Maintenance, 12/22/22 16:58:00 EDT, [facility], 13, APPLY TOPICALLY FOUR TIMES A [...] Refills, Maintenance, 08/07/22 12:12:00 EST, [id number], 30, USE 1 SPRAY(S) INTO EACH [...] 09/03/22 14:50:00 EDT, [facility], 169, cm, 09/03/22 14:21:00 EDT, Height, 69, kg, 08/16/22 1:04:00 EST, Dry Weight Start Date: 09/03/22 Status: Ordered gabapentin 300 mg oral capsule 300 mg, 1, capsule, By Mouth, Daily at bedtime, note dose/frequency change, # 90 capsule, Refills 4, Tot. Refills 4, Maintenance, 11/05/22 11:05:00 EDT, Route to Pharmacy Electronically, [facility], 175, cm, 11/05/22 10:21:00 EDT, Height, 88.9... Start Date: 11/05/22 Stop Date: 01/29/24 Status: Ordered hydrOXYzine hydrochloride 10 mg oral tablet 2 tablet, By Mouth, 2 times a day, PRN NEEDED FOR ANXIETY (VIAL), # 30 tablet, 3 Refills, Maintenance, 12/22/22 16:57:00 EDT, [facility], 175, cm, 12/03/22 11:50:00 EDT, Height, 88.9, kg, 10/21/22 20:41:00 EDT, Dry Weight Start Date: 12/22/22 Status: Ordered lactulose 10 gm/15 ml oral syrup 15 mL, By Mouth, 2 times a day, # 120 mL, 6 Refills, Maintenance, 09/22/22 12:15:00 EDT, [facility], 4, TAKE 15ML BY MOUTH TWO TIMES A DAY, 176, cm, 09/07/22 8:56:00 EDT, Height, 82.1, kg, 09/07/22 8:59:00 EDT, Dry Weight Start Date: 09/22/22 Status: Ordered Lidoderm 5% film 1 patch, Topically, Daily, remove patches after 12 hours NSAIDS contraindicated High dose tylenol contraindicated remove patches after 12 hours Nueropathy, # 30 patch, 5 Refills, Maintenance, 11/05/22 11:04:00 EDT, [facility], Partial klaudia... Start Date: 11/05/22 Status: Ordered Melatonin 3 mg oral tablet 1 tablet, By Mouth, Daily at bedtime, PRN NEEDED FOR INSOMNIA (PACKAGE IN TRAY)^1R4, # 60 tablet, 5 Refills, Maintenance, 06/12/22 18:11:00 EST, [facility], 60, TAKE 1 TABLET BY MOUTH [...] 09/03/22 14:53:00 EDT, Route to Pharmacy Electronically, [facility], Partial fill upon patient request if [...] 11/05/22 11:31:00 EDT, Route to Pharmacy Electronically, [facility], Partial fill upon patient request if the prescription is for a schedule II opioid drug... Start Date: 11/05/22 Status: Ordered Tab-A-Jesse oral tablet 1 tablet, By Mouth, Daily, # 90 tablet, 1 Refills, 12/01/22 12:59:00 EDT, [facility], 28, 1tablet By Mouth Daily, 175, cm, 11/13/22 10:42:00 EDT, Height, 88.9, kg, 10/21/22 20:41:00 EDT, DryWeight Start Date: 12/01/22 Status: Ordered traZODone 50 mg oral tablet 2 tablets, By Mouth, Daily at bedtime, # 60 each, Refills 5, Tot. Refills 5, Maintenance, 09/03/22 17:13:00 EDT, Route to Pharmacy Electronically, [facility], 169, cm, 09/03/22 14:21:00 EDT, Height, [...] 03/13/22 8:37:00 EDT, Route to Pharmacy Electronically, [facility], 175, cm, 01/06/22 10:34:00 EDT, Height, 78.3, kg, 12/26/2218:05:00 EDT, Dry Weight Start Date: 03/13/22 Status: Ordered Vitamin B6 50 mg oral tablet 1, tablet, By Mouth, Daily, R1., # 90 tablet, Refills 4, Maintenance, 11/16/22 13:39:00 EDT, Route to Pharmacy Electronically, [facility], 175, cm, 11/13/22 10:42:00 EDT, Height, [...] tablet, 3 Refills, Maintenance, 10/01/22 15:19:00 EDT, [facility], 176, cm, 09/07/22 8:56:00 EDT, Height, [...] Care Nurse Name: Garima Manzano RN Position: [facility] RN [...] Primary Care Member Role: PCP Address: Address: [address] [place] [address] Adult [place] [address]- Name: Neida Ballard RN Position: [facility] [...] Member Role: Lifetime Consulting Provider Address: Address: [address] [place] [address]- Name: Ge Covarrubias RN Position: [facility] RN Member Role: Primary Care Nurse Name: Orin Elmore RN Position: [facility] ED RN W/OE and Tasks Member Role: Primary Care Nurse Name: Noe RN, Allegra Elliott Position: [facility] AMB Nurse Member Role: Primary Care Nurse Name: Shayan Pandya MD Position: [facility] Renal MD Member Role: Lifetime Consulting Physician Address: Address: [address] [facility] [address] [facility], [place] [address]- Name: Darlene Rodrigez RN Position: [facility] RN Member Role: Primary Care Nurse Name: Kwan Mills RN Position: [facility] RN Member Role: Primary Care Nurse Name: Dolores Can RN Position: [facility] RN Member Role: Primary Care Nurse Name: Monica Rowell RN Position: [facility] RN Member Role: Primary Care Nurse Name: Jimi Fitzpatrick RN Position: [facility] RN Member Role: Primary Care Nurse Care Team Related Persons Name: DUCBRIANWUMARLEN Address: home [address] [place] [id number] Name: MARLEN CABEZAS Address: [address] [place] [address] Name: NICK CABEZAS Name: GEMA CABEZAS Address: [address] [place] [address]
--- OUTSIDE RECORDS SUMMARY | 2023-12-15 20:55 | XMS_ITS | Continuity of Care Document ---
Author Organization [facility] Address [address] [place] [address]- Care Team Providers Care Manager Channel Name Role Phone Jany Baig DO Primary Care Physician Encounter [facility] Date(s): 08/27/22 - 09/26/22 [facility] [address] [place] [address]- Allergies, Adverse Reactions, Alerts Substance Reaction Severity [...] [facility]FF[facility]: [id number] 2Result Comment: [04/29/2017] [id number] 3Admin Note: FLUARIX 4Admin Note: 3 RDINJ 5Admin Note: #2 Medications acamprosate 333 mg oral delayed release tablet 1 tablet = 333 mg, By Mouth, 3 times a day, # 90 tablet, 4 Refills, Maintenance, 09/03/22 14:59:00 EDT, EC Tablet, [facility], Partial fill upon patient request if the prescription is for a schedule II opioid drug., 169, cm, 09/03/22 14:21:00... Start Date: 09/03/22 Status: Ordered amLODIPine 5 mg oral tablet See Instructions, TAKE 1 TABLET BY MOUTH ONCE A DAY^1R1, # 30 tablet, 5 Refills, Maintenance, 05/13/22 16:24:00 EST, [facility], 175, cm, 04/09/22 15:34:00 EDT, Height, 78.3, kg, 12/26/21 19:05:00 EDT, Dry Weight Start Date: 05/13/22 Status: Ordered baclofen 10 mg oral tablet See Instructions, TAKE 1 TABLET BY MOUTH THREE TIMES DAILY, # 90 tablet, Refills 0, Maintenance, 08/07/22 12:26:00 EST, Instructions Replace Required Details, Route to Pharmacy Electronically, [facility], 176, cm, 08/07/22 11:37:00 EST, Height... Start Date: 08/07/22 Status: Ordered calcium (as carbonate)-vitamin D 500 mg-400 intl units oral tablet 1 tablet, By Mouth, Daily, ^1R1., # 30 tablet, 0 Refills, Maintenance, 09/22/22 12:15:00 EDT, [facility], 30, TAKE ONE TABLET BY MOUTH EVERY DAY ^1R1, 176, cm, 09/07/22 8:56:00 EDT, Height, 82.1, kg, 09/07/22 8:59:00 EDT, Dry Weight Start Date: 09/22/22 Status: Ordered Co Q-10 100 mg oral capsule See Instructions, TAKE 1 CAPSULE BY MOUTH FOUR TIMES DAILY, # 120 capsule, 6 Refills, Maintenance, 08/07/22 12:13:00 EST, [facility], 176, cm, 08/07/22 11:37:00 EST, [...] Gm, 11 Refills, Maintenance, 08/07/22 12:12:00 EST, [facility]/pharmacy #[id number], 30, USE 1 SPRAY(S) INTO EACH NOSTRIL TWICE A DAY, 176, cm,08/07/22 11:37:00 EST, Height, 79.8, kg, 07/31/22 2... Start Date: 08/07/22 Status: Ordered folic acid 1 mg oral tablet 1 mg, 1, tablet, By Mouth, Daily, # 90 tablet, Refills 4, Tot. Refills 4, Maintenance, 10/27/21 10:40:00 EDT, Route to Pharmacy Electronically, [facility], Partial fill upon patient request if the prescription is for a schedule II opioid drug.... Start Date: 10/27/21 Stop Date: 01/20/23 Status: Ordered furosemide 20 mg oral tablet 1, tablet, By Mouth, Daily, R1., # 30 tablet, Refills 5, Tot. Refills 5, Maintenance, 09/03/22 14:50:00 EDT, Route to Pharmacy Electronically, [facility], 169, cm, 09/03/22 14:21:00 EDT, Height, 69, kg, 08/16/22 1:04:00 EST, Dry Weight Start Date: 09/03/22 Status: Ordered gabapentin 300 mg oral capsule 300 mg, 1, capsule, By Mouth, 2 times a day, note dose/frequency change, # 180 capsule, Refills 4, Tot. Refills 4, Maintenance, 09/03/22 14:55:00 EDT, [email or web address], 169, cm, 09/03/22 14:21:00 EDT, Height, 69, kg... Start Date: 09/03/22 Stop Date: 11/27/23 Status: Ordered hydrOXYzine hydrochloride 10 mg oral tablet 2 tablet, By Mouth, 2 times a day, PRN NEEDED FOR ANXIETY (VIAL), # 30 tablet, 3 Refills, Maintenance, 09/24/22 17:01:00 EDT, [email or web address], 176, cm, 09/07/22 8:56:00 EDT, Height, 82.1, kg, 09/07/22 8:59:00 EDT, Dry Weight Start Date: 09/24/22 Status: Ordered lactulose 10 gm/15 ml oral syrup 15 mL, By Mouth, 2 times a day, # 120 mL, 6 Refills, Maintenance, 09/22/22 12:15:00 EDT, [email or web address], 4, TAKE 15ML BY MOUTH TWO TIMES A DAY, 176, cm, 09/07/22 8:56:00 EDT, Height, 82.1, kg, 09/07/22 8:59:00 EDT, Dry Weight Start Date: 09/22/22 Status: Ordered Lidoderm 5% film 1 patch, Topically, Daily, remove patches after 12 hours NSAIDS contraindicated High dose tylenol contraindicated remove patches after 12 hours Nueropathy, # 30 patch, 5 Refills, Maintenance, 09/03/22 16:34:00 EDT, [facility], Partial klaudia... Start Date: 09/03/22 Status: Ordered magnesium oxide 400 mg oral tablet 1 tablet, By Mouth, 2 times a day, # 60 tablet, 11 Refills, Maintenance, 03/13/22 8:37:00 EDT, [facility], 175, cm, 01/06/22 10:34:00 EDT, Height, 78.3, kg, 12/26/21 19:05:00 EDT, Dry Weight Start Date: 03/13/22 Status: Ordered Melatonin 3 mg oral tablet 1 tablet, By Mouth, Daily at bedtime, PRN NEEDED FOR INSOMNIA (PACKAGE IN TRAY)^1R4, # 60 tablet, 5 Refills, Maintenance, 06/12/22 18:11:00 EST, [facility], 60, TAKE 1 TABLET [...] 09/03/22 14:53:00 EDT, Route to Pharmacy Electronically, [facility], Partial fill upon patient request if the prescription is for a schedule II opioid drug... Start Date: 09/03/22 Stop Date: 03/02/23 Status: Ordered PHENobarbital 30 mg oral tablet See Instructions, Taper 09/08-Day 1 -90mg Daily Day 2-3-60mg BID Day 4-5 30mg BID, # 15 tablet, 0 Refills, Maintenance, 09/08/22 15:05:00 EDT, [facility], Partial fill upon patient request if the prescription is for a schedule II op... Start Date: 09/08/22 Status: Ordered pyridoxine 50 mg oral tablet 50 mg, 1, tablet, By Mouth, Daily, for 90 days, # 90 tablet, Refills 4, Tot. Refills 4, Acute 01/15/23 11:42:00 EDT, 10/22/21 11:42:00 EDT, Route to Pharmacy Electronically, [facility], Partial fill upon patient request [...] 90 tablet, 9 Refills, 08/07/22 12:27:00 EST, [facility]/pharmacy #[id number], 28, 1tablet By Mouth Daily, 176, cm, 08/07/22 11:37:00 EST, Height, 79.8, kg, 07/31/22 22:40:00 EST, DryWeight Start Date: 08/07/22 Status: Ordered traZODone 50 mg oral tablet 2 tablets, By Mouth, Daily at bedtime, # 60 each, Refills 5, Tot. Refills 5, Maintenance, 09/03/22 17:13:00 EDT, Route to Pharmacy Electronically, [facility], 169, cm, 09/03/22 14:21:00 EDT, Height, 69, kg, 08/16/22 1:04:00 EST, Dry Weight Start Date: 09/03/22 Status: Ordered Vitamin B1 100 mg oral tablet 1, tablet, By Mouth, Daily, # 90 tablet, Refills 3, Maintenance, 03/13/22 8:37:00 EDT, Route to Pharmacy Electronically, [facility], 175, cm, 01/06/22 10:34:00 EDT, Height, 78.3, kg, 12/26/2218:05:00 EDT, Dry Weight Start Date: 03/13/22 Status: Ordered Xifaxan 550 mg oral tablet 1 tablet, By Mouth, 2 times a day, ^1R1,1R4., # 60 tablet, 0 Refills, Maintenance, 09/22/22 12:15:00 EDT, [facility], 176, cm, 09/07/22 8:56:00 EDT, [...] Team Personnel Name: Alexandra Colmenares RN Position: [facility] ED RN W/OE and Tasks Member Role: Primary Care Nurse Name: Garima Manzano RN Position: [facility] RN Member Role: Primary Care Nurse Name: Malgorzata Marinelli RN Position: [facility] RN Member Role: Primary Care Nurse Name: Joyce Roach RN Position: [facility] RN Member Role: Primary Care Nurse Name: Mary Suazo RN Position: [facility] RN Member Role: Primary Care Nurse Name: Andres Pressley RN Position: [facility] RN Member Role: Primary Care Nurse Name: Jany Baig DO Position: [facility] Primary Care Physician Member Role: PCP Address: Address: [address] [place] [address] [facility] [address] Name: Neida Ballard RN Position: [facility] RN Member Role: Primary Care Nurse Name: Kaye Payne RN Position: [facility] RN Member Role: Primary Care Nurse Name: Garima Hutchinson Position: [facility] RN Member Role: Primary Care Nurse Name: Malgorzata Austin Position: [facility] RN Member Role: Primary Care Nurse Name: Torrie Hernandez RN Position: [facility] OB RN Member Role: Primary Care Nurse Name: Gretchen Knutson RN Position: [facility] SN RN Member Role: Primary Care Nurse Name: Aislinn Mckee RN Position: [facility] RN Member Role: Primary Care Nurse Name: Ashley Mcelroy Position: [facility] RN Member Role: Primary Care Nurse Name: Cody Garcia Position: [facility] Associate Professional Member Role: Lifetime Consulting Provider Address: Address: [address] [place] [address]- Name: Ge Covarrubias RN Position: [facility] RN Member Role: Primary Care Nurse Name: Orin Elmore RN Position: [facility] ED RN W/OE and Tasks Member Role: Primary Care Nurse Name: Allegra Liu RN Position: [facility] PCO RN Member Role: Primary Care Nurse Name: Shayan Pandya MD Position: [facility] Renal MD Member Role: Lifetime Consulting Physician Address: Address: [address] [facility], [place] [address]- Name: Darlene Rodrigez RN Position: S RN [...] Team Related Persons Name: MARLEN CABEZAS Address: [address] [address] Name: MARLEN CABEZAS Address: home [address] [place] [id number] Name: NICK CABEZAS Name: GEMA CABEZAS Address: [place] [address]
--- OUTSIDE RECORDS SUMMARY | 2023-12-15 20:55 | XMS_ITS | Continuity of Care Document ---
Author Organization [facility] Address [address] [place] [address]- Care Team Providers Care Buffing Turner And Counter Name Role Phone Jany Baig DO Primary Care Physician ( [phone] [place]counter [facility] [place]): 06/18/23 - 07/21/23 [facility] [address] [place], [place] [address] Attending Physician: Kris Romero MD Allergies, Adverse Reactions, Alerts Substance Reaction [...] acel (oldterm) 08/02/12 Give n 1Result Comment: [facility]: [id number] 2Result Comment: [04/29/2017] [id number] 3Admin Note: FLUARIX 4Admin Note: 3 RDINJ [...] tablet, 2 Refills, Maintenance, 06/02/23 8:00:00 EST, [facility], 175, cm, 03/22/23 6:50:00 EDT, [...] 04/14/23 12:41:00 EDT, Route to Pharmacy Electronically, [facility], 175, cm, 03/22/23 6:50:00 EDT, Height, 77.5, kg, 03/20/23 11:30:00 EDT, Dry Weight Start Date: 04/14/23 Status: Ordered Tab-A-Jesse oral tablet 1 tablet, By Mouth, Daily, R1., # 30 tablet, 5 Refills, Maintenance, 05/06/23 19:16:00 EST, [facility], 30, TAKE 1 TABLET BY MOUTH ONCE A DAY^1R1, 175, cm, 03/22/23 6:50:00 EDT, Height, 77.5,kg, 03/20/23 11:30:00 EDT, Dry Weight Start Date: 05/06/23 Status: Ordered traZODone 50 mg oral tablet 2, tablet, By Mouth, Daily at bedtime, ^2R4., # 60 tablet, Refills 5, Maintenance, 02/26/23 10:11:00 EDT, Route to Pharmacy Electronically, [facility], 175, cm, 12/03/22 11:50:00 EDT, Height,84, [...] 02/09/23 23:18:00 EDT, Route to Pharmacy Electronically, [facility], 175, cm, 12/03/22 11:50:00 EDT, Height, 88.9, kg, 10/21/22 20:41:00 EDT, Dry Weight Start Date: 02/09/23 Status: Ordered Vitamin B6 50 mg oral tablet 1, tablet, By Mouth, Daily, R1., # 90 tablet, Refills 4, Maintenance, 11/16/22 13:39:00 EDT, Route to Pharmacy Electronically, [facility], 175, cm, 11/13/22 10:42:00 EDT, Height, [...] Team Personnel Name: Shira Galindo RN Position: [facility] RN Member Role: Primary Care Nurse Name: Lisa Nunez RN Position: [facility] RN Member Role: Primary Care Nurse Name: Alexandra Colmenares RN Position: [facility] ED RN W/OE and Tasks Member Role: Primary Care Nurse Name: Garima Manzano RN Position: [facility] RN Member Role: Primary Care Nurse Name: Malgorzata Marinelli RN Position: [facility] RN Member Role: Primary Care Nurse Name: Joyce Roach RN Position: [facility] ED RN W/OE and Tasks Member Role: Primary Care Nurse Name: Mary Suazo RN Position: [facility] RN Member Role: Primary Care Nurse Name: Lucina Peralta RN Position: [facility] RN Member Role: Primary Care Nurse Name: Maria Esther Craig LPN Position: S RN Member Role: Primary Care Nurse Name: Andres Pressley RN Position: [facility] ED RN W/OE and Tasks Member Role: Primary Care Nurse Name: Jany Baig DO Position: [facility] Physician - Primary Care Member Role: PCP Address: Address: [address] [place] [address] Adult [place] [address]- Name: Kaye Payne RN Position: [facility] RN Member Role: Primary Care Nurse Name: Garima Hutchinson Position: [facility] RN Member Role: Primary Care Nurse Name: Malgorzata Austin Position: [facility] RN Member Role: Primary Care Nurse Name: Ibeth Adams RN Position: [facility] RN Member Role: Primary Care Nurse Name: Torrie Hernandez RN Position: [facility] OB RN Member Role: Primary Care Nurse Name: Gretchen Knutson RN Position: [facility] SN RN Member Role: Primary Care Nurse Name: Aislinn Mckee RN Position: [facility] RN Member Role: Primary Care Nurse Name: Ashley Mcelroy Position: [facility] RN Member Role: Primary Care Nurse Name: Ashok Kevin RN Position: [facility] RN Member Role: Primary Care Nurse Name: Cody Garcia Position: [facility] Associate Professional Member Role: Lifetime Consulting Provider Address: Address: [address] [place] [address] Name: Paige Nascimento RN Position: [facility] RN Member Role: Primary Care Nurse Name: Ge Covarrubias RN Position: [facility] RN Member Role: Primary Care Nurse Name: Orin Elmore RN Position: [facility] ED RN W/OE and Tasks Member Role: Primary Care Nurse Name: Allegra Liu RN Position: [facility] AMB Nurse Member Role: Primary Care Nurse Name: Shayan Pandya MD Position: [facility] Renal MD Member Role: Lifetime Consulting Physician Address: Address: [address] [place] [address] [address] [facility] [address] Name: Kimberley Pittman RN Position: [facility] RN Member Role: Primary Care Nurse Name: Darlene Rodrigez RN Position: [facility] RN Member Role: Primary Care Nurse Name: Dixie Duke RN Position: [facility] RN Member Role: Primary Care Nurse Name: Kwan Mills RN Position: [facility] ED RN W/OE and Tasks Member Role: Primary Care Nurse Name: Ingrid Verdugo RN Position: [facility] RN Member Role: Primary Care Nurse Name: Monica Rowell RN Position: [facility] RN Member Role: Primary Care Nurse Name: Jimi Fitzpatrick RN Position: [facility] RN Member Role: Primary Care Nurse Care Team Related Persons Name: MARLEN CABEZAS Address: home [address] [place] [id number] Name: MARLEN CABEZAS Address: [address] [address] Name: NICK CABEZAS Name: GEMA CABEZAS Address: [place] [address]
--- OUTSIDE RECORDS SUMMARY | 2023-12-15 20:55 | XMS_ITS | Continuity of Care Document ---
Author Organization [facility] Address [address] [place] [address]- Care Team Providers Care Internal Review And Audit Compliance Name Role Phone Jany Baig DO Primary Care Physician Encounter [facility] Date(s): 07/14/23 - 08/13/23 [facility] [address] [place], [place] [address] Allergies, Adverse Reactions, Alerts [...] (oldterm) 08/02/12 Give n 1Result Comment: [facility]: [id number] 2Result Comment: [04/29/2017] [id number] 3Admin Note: FLUARIX 4Admin Note: 3 RDINJ [...] tablet, 2 Refills, Maintenance, 07/28/23 11:06:00 EST, [facility], 175, cm, 07/28/23 9:11:00 EST, Height, 61.3, kg, 07/12/23 23:27:00 EST, Dry Weight Start Date: 07/28/23 Status: Ordered amLODIPine 5 mg oral tablet 1 tablet, By Mouth, Daily, ^1R1., # 30 tablet, 2 Refills, Maintenance, 06/02/23 8:00:00 EST, [facility], 175, cm, 03/22/23 6:50:00 EDT, Height, [...] 07/28/23 11:10:00 EST, Route to Pharmacy Electronically, [facility], Partial fill upon patient request if [...] Gm, 12 Refills, Maintenance, 07/28/23 11:06:00 EST, [facility], 28, APPLY TOPICALLY TO AFFECTED AREA(S) [...] Gm, 1 Refills, Maintenance, 07/28/23 12:07:00 EST, [facility], 30, USE 1 SPRAY(S) INTO EACH [...] 07/28/23 12:09:00 EST, Route to Pharmacy Electronically, [facility], 175, cm, 07/28/23 9:11:00 EST, Height, [...] tablet, 3 Refills, Maintenance, 07/28/23 12:10:00 EST, [facility], 175, cm, 07/28/23 9:11:00 EST, Height, 61.3, kg,07/12/23 23:27:00 EST, Dry Weight Start Date: 07/28/23 Status: Ordered lactulose 10 gm/15 ml oral syrup 30 mL = 20 Gm, By Mouth, 3 times a day, for 30 days, # 2,700 mL, 2 Refills, Acute 10/26/23 12:13:00EDT, 07/28/23 12:13:00 EST, Syrup, [facility], Partial fill upon patient request if [...] 60 tablet, 11 Refills, Maintenance,07/28/23 12:09:00 EST, [facility], 175, cm, 07/28/23 9:11:00 EST, Height, [...] tablet, 5 Refills, Maintenance, 07/28/23 12:09:00 EST, [facility], 60, 1 tablet By Mouth Daily [...] 07/28/23 12:11:00 EST, Route to Pharmacy Electronically, [facility], 175, cm, 07/28/23 9:11:00EST, Height, 61.3, [...] 07/28/23 12:12:00 EST, Route to Pharmacy Electronically, [facility], 175, cm, 07/28/23 9:11:00 EST, Height, 61.3, kg, 07/12/23 23:27:00 EST, Dry Weight Start Date: 07/28/23 Status: Ordered spironolactone 25 mg oral tablet 1, tablet, By Mouth, Daily, ^1R2., # 30 tablet, Refills 5, Tot. Refills 5, Maintenance, 04/14/23 12:41:00 EDT, Route to Pharmacy Electronically, [facility], 175, cm, 03/22/23 6:50:00 EDT, Height, 77.5, kg, 03/20/23 11:30:00 EDT, Dry Weight Start Date: 04/14/23 Status: Ordered Tab-A-Jesse oral tablet 1 tablet, By Mouth, Daily, R1., # 30 tablet, 5 Refills, Maintenance, 05/06/23 19:16:00 EST, [facility], 30, TAKE 1 TABLET BY MOUTH [...] [facility], [facility], cm, 12/03/22 11:50:00 EDT, Height,84, kg, 02/12/23 11:30:00 EDT, Dry Weight Start Date: 02/26/23 Status: Ordered traZODone 50 mg oral tablet 2, tablet, By Mouth, Daily at bedtime, ^2R4., # 60 tablet, Refills 5, Tot. Refills 5, Maintenance, 07/28/23 12:12:00 EST, Route to Pharmacy Electronically, [facility], 175, cm, 07/28/23 9:11:00 EST, Height, [...] [facility], 175, cm, 12/03/22 11:50:00 EDT, Height, 88.9, kg, 10/21/22 20:41:00 EDT, Dry Weight Start Date: 02/09/23 Status: Ordered Vitamin B1 100 mg oral tablet 1, tablet, By Mouth, Daily, # 90 tablet, Refills 3, Tot. Refills 3, Maintenance, 07/28/23 12:12:00 EST, Route to Pharmacy Electronically, [facility], 175, cm, 07/28/23 9:11:00 EST, Height, 61.3, kg, 07/12/23 23:27:00 EST, Dry Weight Start Date: 07/28/23 Status: Ordered Vitamin B6 50 mg oral tablet 1, tablet, By Mouth, Daily, R1., # 90 tablet, Refills 4, Maintenance, 11/16/22 13:39:00 EDT, Route to Pharmacy Electronically, [facility], 175, cm, 11/13/22 10:42:00 EDT, Height, 88.9, kg, 10/21/22 20:41:00 EDT, Dry Weight Start Date: 11/16/22 Status: Ordered Vitamin B6 50 mg oral tablet 1, tablet, By Mouth, Daily, R1., # 90 tablet, Refills 4, Tot. Refills 4, Maintenance, 07/28/23 12:11:00 EST, Route to Pharmacy Electronically, [facility], 175, cm, 07/28/23 9:11:00 EST, Height, [...] each, 1 Refills, Maintenance, 07/28/23 14:33:00 EST, [facility], 175, cm, 07/28/23 9:11:00 EST, Height, [...] Care Member Role: PCP Address: Address: [address] [place] [address] Adult [place] [address]- Name: Kaye Payne RN Position: [facility] Member Role: Lifetime Consulting Provider Address: Address: [address] [place] [id number]- Name: Paige Nascimento RN Position: [facility] [...] [address] [facility] [place] [address]- Name: Kimberley Pittman RN Position: [facility] RN Member Role: Primary Care Nurse Name: Darlene Rodrigez RN Position: [facility] RN Member Role: Primary Care Nurse Name: Dixie Duke RN Position: [facility] RN [...] Persons Name: DUCBRIANWU MARLEN Address: [address] [place] [address] Name: MARLEN CABEZAS Address: [address] [place] [address] Name: NICK CABEZAS Name: GEMA CABEZAS Address: [address] [place] [address] Name: ELTON CHENG Address: home [address] [place] [id number]
--- OUTSIDE RECORDS SUMMARY | 2023-12-15 20:55 | XMS_ITS | Continuity of Care Document ---
Author Organization [facility] Address [address] [place] [address]- Care Team Providers Care Bonding Agent Name Role Phone Jany Baig DO Primary Care Physician [facility]23 - 04/23/23 [facility] [address] [place], [place] [address] Allergies, Adverse Reactions, Alerts Substance [...] Give n 1Result Comment: [facility]: [id number] 2Result Comment: [04/29/2017] [id number] 3Admin Note: FLUARIX 4Admin Note: 3 RDINJ 5Admin Note: #2 Medications acamprosate 333 mg oral delayed release tablet 1 tablet = 333 mg, By Mouth, 3 times a day, # 42 tablet, 4 Refills, Maintenance, 11/05/22 11:31:00 EDT, EC Tablet, [facility], Partial fill upon patient request if the prescription is for a schedule II opioid drug., 175, cm, 11/05/22 10:21:00... Start Date: 11/05/22 Stop Date: 01/14/23 Status: Ordered amLODIPine 5 mg oral tablet 1 tablet, By Mouth, Daily, ^1R1., # 30 tablet, 5 Refills, Maintenance, 12/22/22 7:20:00 EDT, [facility], 175, cm, 12/03/22 11:50:00 EDT, Height, 88.9, kg, 10/21/22 20:41:00 EDT, Dry Weight Start Date: 12/22/22 Status: Ordered baclofen 10 mg oral tablet See Instructions, TAKE ONE TABLET BY MOUTH THREE TIMES A DAY ^1R1,1R2,1R4, # 90 tablet, Refills 5, Tot. Refills 5, Maintenance, 01/14/23 17:55:00 EDT, Instructions Replace Required Details, Route to Pharmacy Electronically, [facility], 175, cm... Start Date: 01/14/23 Status: Ordered calcium (as carbonate)-vitamin D 500 mg-400 intl units oral tablet 1 tablet, By Mouth, Daily, ^1R1., # 28 tablet, 0 Refills, Maintenance, 12/01/22 16:12:00 EDT, [facility], 28, 1 tablet By Mouth Daily,Instr:^1R1., [...] capsule, 6 Refills, Maintenance, 12/03/22 12:13:00 EDT, [facility], 175, cm, 12/03/22 11:50:00 EDT, Height, [...] Gm, 12 Refills, Maintenance, 03/24/23 10:52:00 EDT, [facility], 28, APPLY TOPICALLY TO AFFECTED [...] 05/03/23 12:01:00 EST, 03/22/23 12:01:00 EDT, Tablet, [facility]/pharmacy #[id number], Partial fill upon patient [...] 03/20/23 16:22:00 EDT, [facility], 175, cm, 03/20/23 15:31:00 EDT, Height, 77.5, kg, 03/20/23 11:30:00 EDT, Dry Weight Start Date: 03/20/23 Status: Ordered furosemide 20 mg oral tablet 20 mg, 1, tablet, By Mouth, Every other day, # 30 tablet, Refills 3, Tot. Refills 3, Maintenance, 01/28/23 12:31:00 EDT, Route to Pharmacy Electronically, [facility], Partial fill upon patient request if the prescription is for a schedule II o... Start Date: 01/28/23 Status: Ordered gabapentin 300 mg oral capsule 300 mg, 1, capsule, By Mouth, Daily at bedtime, note dose/frequency change, # 90 capsule, Refills 4, Tot. Refills 4, Maintenance, 11/05/22 11:05:00 EDT, [facility] Pharm[facility], [facility], 175, cm, 11/05/22 10:21:00 EDT, Height, 88.9... Start Date: 11/05/22 Stop Date: 01/29/24 Status: Ordered hydrOXYzine hydrochloride 10 mg oral tablet 2 tablet, By Mouth, 2 times a day, PRN NEEDED FOR ANXIETY (VIAL), # 30 tablet, 3 Refills, Maintenance, 04/16/23 16:41:00 EDT, [facility], 175, cm, 03/22/23 6:50:00 EDT, Height, 77.5, kg, 03/20/23 11:30:00 EDT, Dry Weight Start Date: 04/16/23 Status: Ordered lactulose 10 gm/15 ml oral syrup 15 mL, By Mouth, 2 times a day, # 120 mL, 6 Refills, Maintenance, 02/26/23 10:11:00 EDT, [facility], 4, TAKE 15ML BY MOUTH TWO TIMES A DAY, 175, cm, 12/03/22 11:50:00 EDT, Height, 84, kg, 02/12/23 11:30:00 EDT, Dry Weight Start Date: 02/26/23 Status: Ordered magnesium oxide 400 mg oral tablet See Instructions, TAKE 1 TABLET BY MOUTH TWICE A DAY^1R1,1R4, # 60 tablet, 11 Refills, Maintenance,01/28/23 12:31:00 EDT, [facility], 175, cm, 12/03/22 11:50:00 EDT, Height, 88.9, kg, 10/21/22 20:41:00 EDT, Dry Weight Start Date: 01/28/23 Status: Ordered Melatonin 3 mg oral tablet 1 tablet, By Mouth, Daily at bedtime, PRN NEEDED FOR INSOMNIA (PACKAGE IN TRAY)^1R4, # 60 tablet, 5 Refills, Maintenance, 04/16/23 16:41:00 EDT, [facility], 60, TAKE 1 TABLET BY [...] 10:11:00 EDT, Route to Pharmacy Electronically, [facility], 175, cm, 12/03/22 11:50:00 EDT, [...] 05/03/23 12:02:00 EST, 03/22/23 12:02:00 EDT, Capsule, [facility]/pharmacy #[id number], Partial fill upon patient request if the prescription is for a schedule II opioid drug., 175, c... Start Date: 03/22/23 Stop Date: 05/03/23 Status: Ordered spironolactone 25 mg oral tablet 1, tablet, By Mouth, Daily, ^1R2., # 30 tablet, Refills 5, Tot. Refills 5, Maintenance, 04/14/23 12:41:00 EDT, Route to Pharmacy Electronically, [facility], 175, cm, 03/22/23 6:50:00 EDT, Height, 77.5, kg, 03/20/23 11:30:00 EDT, Dry Weight Start Date: 04/14/23 Status: Ordered Tab-A-Jesse oral tablet 1 tablet, By Mouth, Daily, # 90 tablet, 1 Refills, 12/01/22 12:59:00 EDT, [facility], 28, 1tablet By Mouth Daily, 175, cm, 11/13/22 10:42:00 EDT, Height, 88.9, kg, 10/21/22 20:41:00 EDT, DryWeight Start Date: 12/01/22 Status: Ordered traZODone 50 mg oral tablet 2, tablet, By Mouth, Daily at bedtime, ^2R4., # 60 tablet, Refills 5, Maintenance, 02/26/23 10:11:00 EDT, Route to Pharmacy Electronically, [facility], 175, cm, 12/03/22 11:50:00 EDT, Height,84, [...] 23:18:00 EDT, Route to Pharmacy Electronically, [facility], 175, cm, 12/03/22 11:50:00 EDT, Height, 88.9, kg, 10/21/22 20:41:00 EDT, Dry Weight Start Date: 02/09/23 Status: Ordered Vitamin B6 50 mg oral tablet 1, tablet, By Mouth, Daily, R1., # 90 tablet, Refills 4, Maintenance, 11/16/22 13:39:00 EDT, Route to Pharmacy Electronically, [facility], 175, cm, 11/13/22 10:42:00 EDT, [...] 3 Refills, Maintenance, 02/26/23 10:11:00 EDT, [facility], 175, cm, 12/03/22 11:50:00 EDT, [...] Care Member Role: PCP Address: Address: [address] [place] [address] [facility] [address] Name: Kaye Payne RN Position: [facility] [...] Member Role: Lifetime Consulting Provider Address: Address: [address] [place] [address]- Name: Paige Nascimento RN Position: [facility] RN Member Role: Primary Care Nurse Name: Ge Covarrubias RN Position: [facility] RN Member Role: Primary Care Nurse Name: Orin Elmore RN Position: [facility] ED RN W/OE and Tasks Member Role: Primary Care Nurse Name: Allegra Liu RN Position: [facility] SN RN Member Role: Primary Care Nurse Name: Shayan Pandya MD Position: [facility] Renal MD Member Role: Lifetime Consulting Physician Address: Address: [address] [place] [address] [address] [facility] [place] [address]- Name: Darlene Rodrigez RN Position: [facility] [...] Related Persons Name: MARLEN CABEZAS Address: home [address] [place] [address] Name: MARLEN CABEZAS Address: home [address] [place] [id number] Name: NICK CABEZAS Name: GEMA CABEZAS Address: home [address] [place] [id number]
--- OUTSIDE RECORDS SUMMARY | 2023-12-15 20:55 | XMS_ITS | Continuity of Care Document ---
Author Organization [facility] Address [address] [place] [address]- Care Team Providers Care School Manager Name Role Phone Jany Baig DO Primary Care Physician [facility]22 - 04/11/22 [facility] [address] [place] [address]- Allergies, Adverse Reactions, Alerts Substance Reaction Severity [...] n 1Result Comment: [facility]: [id number] 2Result Comment: [04/29/2017] [id number] 3Admin Note: FLUARIX 4Admin Note: 3 RDINJ 5Admin Note: #2 Medications acetaminophen 500 mg oral tablet 1 tablet, By Mouth, 4 times a day, PRN NEEDED FOR PAIN, MAX 4, PER DAY (VIAL., # 50 tablet, 11 Refills, Maintenance, 03/13/22 8:37:00 EDT, [facility], 175, cm, 01/06/22 10:34:00 EDT, Height, 78.3, kg, 12/26/21 19:05:00 EDT, Dry Weight Start Date: 03/13/22 Status: Ordered amLODIPine 5 mg oral tablet 5 mg, 1, tablet, By Mouth, Daily, # 30 tablet, Refills 5, Tot. Refills 5, Maintenance, 10/21/21 10:15:00 EDT, Route to Pharmacy Electronically, [facility], Partial fill upon patient request if the prescription is for a schedule II opioid drug.... Start Date: 10/21/21 Status: Ordered Co Q-10 100 mg oral capsule 1 capsule, By Mouth, 4 times a day, # 120 capsule, 5 Refills, Maintenance, 04/09/22 15:55:00 EDT, [facility], 175, cm, 04/09/22 15:34:00 EDT, Height, [...] Gm, 5 Refills, Maintenance, 02/18/22 10:02:00 EDT, [facility], 30, USE 1 SPRAY(S) INTO EACH NOSTRIL TWICE A DAY, 175, cm, 01/06/22 10:34:00 EDT, Height, 78.3, kg, 12/26/21 19... Start Date: 02/18/22 Status: Ordered folic acid 1 mg oral tablet 1 mg, 1, tablet, By Mouth, Daily, # 90 tablet, Refills 4, Tot. Refills 4, Maintenance, 10/27/21 10:40:00 EDT, Route to Pharmacy Electronically, [facility], Partial fill upon patient request if the prescription is for a schedule II opioid drug.... Start Date: 10/27/21 Stop Date: 01/20/23 Status: Ordered furosemide 20 mg oral tablet 1, tablet, By Mouth, Daily, note dose change, # 30 tablet, Refills 2, Tot. Refills 2, Maintenance, 04/09/22 15:53:00 EDT, Route to Pharmacy Electronically, [facility], 175, cm, 04/09/22 15:34:00 EDT, Height, 78.3, kg, 12/26/21 19:05:00 EDT, Start Date: 04/09/22 Stop Date: 07/08/22 Status: Ordered gabapentin 300 mg oral capsule 300 mg, 1, capsule, By Mouth, Daily at bedtime, note dose change, # 90 capsule, Refills 4, Tot. Refills 4, Maintenance, 04/09/22 15:53:00 EDT, Route to Pharmacy Electronically, [facility], Partial fill upon patient request if the prescription... Start Date: 04/09/22 Stop Date: 07/03/23 Status: Ordered hydrOXYzine hydrochloride 25 mg oral tablet 1 TO 2 TABLETS, By Mouth, 3 times a day, PRN NEEDED FOR ANXIETY (VIAL), # 60 tablet, 11 Refills,Maintenance, 03/13/22 8:38:00 EDT, [facility], 175, cm, 01/06/22 10:34:00 EDT, Height, 78.3, kg, 12/26/21 19:05:00 EDT, Dry Weight Start Date: 03/13/22 Status: Ordered lactulose 10 gm/15 ml oral syrup See Instructions, TAKE 30ML BY MOUTH THREE TIMES DAILY NEEDED TO ACHEIVE 3-4 BOWL MOVEMENTS PER DAY, # 3,000 mL, 10 Refills, [facility], 30, TAKE 30ML BY MOUTH THREE TIMES DAILY NEEDED TO ACHEIVE 3-4 BOWL MOVEMENTS PER DAY, 174, cm, 02/12... Start Date: 07/02/21 Status: Ordered lidocaine 0.5% topical gel 1 application, Topically, 3 times a day, # 120 Gm, 0 Refills, Acute 12/30/22 17:23:00 EDT, 12/30/2216:23:00 EDT, Gel, [facility], Partial fill upon patient request if the prescription is fora schedule II opioid drug., 1 application Topically... Start Date: 12/30/21 Stop Date: 12/30/22 Status: Ordered Lidoderm 5% film 1 patch, Topically, Daily, remove patches after 12 hours NSAIDS contraindicated High dose tylenol contraindicated, # 30 patch, 5 Refills, Maintenance, 12/26/21 9:33:00 EDT, [facility], Partial fill upon patient request if the prescription i... Start Date: 12/26/21 Status: Ordered magnesium oxide 400 mg oral tablet 1 tablet, By Mouth, 2 times a day, # 60 tablet, 11 Refills, Maintenance, 03/13/22 8:37:00 EDT, [facility], 175, cm, 01/06/22 10:34:00 EDT, Height, [...] 04/09/22 16:00:00 EDT, Route to Pharmacy Electronically, [facility], Partial fill upon patient requestif the prescription is for a schedule II opioid remedios... Start Date: 04/09/22 Stop Date: 10/06/22 Status: Ordered Potassium Chloride (Eqv-K-Tab) 20 mEq oral tablet, extended release 2 tablet, By Mouth, Daily, # 60 tablet, 1 Refills, Maintenance, 03/13/22 12:37:00 EDT, [id number], 175, cm, 01/06/22 10:34:00 EDT, Height, 78.3, [...] 0 Refills, Maintenance, 03/12/22 17:21:00 EDT, Tablet, [facility]/pharmacy #[id number], Partial fill upon [...] to Pharmacy Electronically, [facility], 175,cm, 01/06/22 10:34:00 EDT, Height, [...] 03/13/22 8:37:00 EDT, Route to Pharmacy Electronically, [facility], 175, cm, 01/06/22 10:34:00 EDT, Height, 78.3, kg, 12/26/2218:05:00 EDT, Dry Weight Start Date: 03/13/22 Status: Ordered Xifaxan 550 mg oral tablet 1 tablet, By Mouth, 2 times a day, # 60 tablet, 1 Refills, Maintenance, 04/10/22 16:49:00 EDT, [facility], 175, cm, 04/09/22 15:34:00 EDT, Height, [...] Personnel Name: Jany Baig DO Address: Address: [address] [place] [address] Adult & Pediatric Medicine [place], [place] [address]
--- OUTSIDE RECORDS SUMMARY | 2023-12-15 20:55 | XMS_ITS | Continuity of Care Document ---
Author Organization [facility] Address [address] [place] [address]- Care Team Providers Care Checker Name Role Phone Jany Baig DO Primary Care Physician [facility]23 - 07/28/23 [facility] [address] [place], [place] [address] Allergies, Adverse Reactions, Alerts [...] Give n 1Result Comment: [facility]: [id number] 2Result Comment: [04/29/2017] [id number] 3Admin Note: FLUARIX 4Admin Note: 3 RDINJ [...] tablet, 2 Refills, Maintenance, 07/28/23 11:06:00 EST, [facility], 175, cm, 07/28/23 9:11:00 EST, Height, 61.3, kg, 07/12/23 23:27:00 EST, Dry Weight Start Date: 07/28/23 Status: Ordered amLODIPine 5 mg oral tablet 1 tablet, By Mouth, Daily, ^1R1., # 30 tablet, 2 Refills, Maintenance, 06/02/23 8:00:00 EST, [facility], 175, cm, 03/22/23 6:50:00 EDT, [...] 07/28/23 11:10:00 EST, Route to Pharmacy Electronically, [facility], Partial fill upon patient request [...] Gm, 12 Refills, Maintenance, 07/28/23 11:06:00 EST, [facility], 28, APPLY TOPICALLY TO AFFECTED [...] Gm, 1 Refills, Maintenance, 07/28/23 12:07:00 EST, [facility], 30, USE 1 SPRAY(S) INTO [...] 07/28/23 12:08:00 EST, Route to Pharmacy Electronically, [facility], 175, cm, 07/28/23 9:11:00 EST, [...] 07/28/23 12:09:00 EST, [facility] to Pharmacy Electronically, [facility] [...] tablet, 3 Refills, Maintenance, 07/28/23 12:10:00 EST, [facility], 175, cm, 07/28/23 9:11:00 EST, Height, 61.3, kg,07/12/23 23:27:00 EST, Dry Weight Start Date: 07/28/23 Status: Ordered lactulose 10 gm/15 ml oral syrup 30 mL = 20 Gm, By Mouth, 3 times a day, for 30 days, # 2,700 mL, 2 Refills, Acute 10/26/23 12:13:00EDT, 07/28/23 12:13:00 EST, Syrup, [facility], Partial fill upon patient [...] 60 tablet, 11 Refills, Maintenance,07/28/23 12:09:00 EST, [facility], 175, cm, 07/28/23 9:11:00 [...] tablet, 5 Refills, Maintenance, 07/28/23 12:09:00 EST, [facility], 60, 1 tablet By Mouth [...] 07/28/23 12:11:00 EST, Route to Pharmacy Electronically, [facility], 175, cm, 07/28/23 9:11:00EST, Height, [...] 07/28/23 12:12:00 EST, Route to Pharmacy Electronically, [facility], 175, cm, 07/28/23 9:11:00 EST, Height, 61.3, kg, 07/12/23 23:27:00 EST, Dry Weight Start Date: 07/28/23 Status: Ordered spironolactone 25 mg oral tablet 1, tablet, By Mouth, Daily, ^1R2., # 30 tablet, Refills 5, Tot. Refills 5, Maintenance, 04/14/23 12:41:00 EDT, Route to Pharmacy Electronically, [facility], 175, cm, 03/22/23 6:50:00 EDT, Height, 77.5, kg, 03/20/23 11:30:00 EDT, Dry Weight Start Date: 04/14/23 Status: Ordered Tab-A-Jesse oral tablet 1 tablet, By Mouth, Daily, R1., # 30 tablet, 5 Refills, Maintenance, 05/06/23 19:16:00 EST, [facility], 30, TAKE 1 TABLET BY MOUTH ONCE A DAY^1R1, 175, cm, 03/22/23 6:50:00 EDT, Height, 77.5,kg, 03/20/23 11:30:00 EDT, Dry Weight Start Date: 05/06/23 Status: Ordered traZODone 50 mg oral tablet 2, tablet, By Mouth, Daily at bedtime, ^2R4., # 60 tablet, Refills 5, Maintenance, 02/26/23 10:11:00 EDT, Route to Pharmacy Electronically, [facility], 175, cm, 12/03/22 11:50:00 EDT, Height,84, kg, 02/12/23 11:30:00 EDT, Dry Weight Start Date: 02/26/23 Status: Ordered traZODone 50 mg oral tablet 2, tablet, By Mouth, Daily at bedtime, ^2R4., # 60 tablet, Refills 5, Tot. Refills 5, Maintenance, 07/28/23 12:12:00 EST, Route to Pharmacy Electronically, [facility], 175, cm, 07/28/23 9:11:00 EST, [...] 02/09/23 23:18:00 EDT, Route to Pharmacy Electronically, [facility], 175, cm, 12/03/22 11:50:00 EDT, Height, 88.9, [...] 11/16/22 13:39:00 EDT, Route to Pharmacy Electronically, [facility], 175, cm, 11/13/22 10:42:00 EDT, Height, 88.9, kg, 10/21/22 20:41:00 EDT, Dry Weight Start Date: 11/16/22 Status: Ordered Vitamin B6 50 mg oral tablet 1, tablet, By Mouth, Daily, R1., # 90 tablet, Refills 4, Tot. Refills 4, Maintenance, 07/28/23 12:11:00 EST, Route to Pharmacy Electronically, [facility], 175, cm, 07/28/23 9:11:00 EST, [...] each, 1 Refills, Maintenance, 07/28/23 14:33:00 EST, [facility], 175, cm, 07/28/23 9:11:00 EST, [...] Team Personnel Name: Shira Galindo RN Position: [facility] RN Member Role: Primary Care Nurse Name: Lisa Nunez RN Position: [facility] RN Member Role: Primary Care Nurse Name: Alexandra Colmenares RN Position: [facility] ED RN W/OE and Tasks Member Role: Primary Care Nurse Name: Garima Manzano RN Position: [facility] RN Member Role: Primary Care Nurse Name: Malgorzata Marinelli RN Position: [facility] RN Member Role: Primary Care Nurse Name: Joyce Roach RN Position: [facility] ED RN W/OE and Tasks Member Role: Primary Care Nurse Name: Mary Suazo RN Position: [facility] RN Member Role: Primary Care Nurse Name: Lucina Peralta RN Position: [facility] RN Member Role: Primary Care Nurse Name: Maria Esther Craig LPN Position: [facility] RN Member Role: Primary Care Nurse Name: Andres Pressley RN Position: [facility] ED RN W/OE and Tasks Member Role: Primary Care Nurse Name: Jany Baig DO Position: [facility] Physician - Primary Care Member Role: PCP Address: Address: [address] [place] [address] Adult [place] [address]- Name: Kaye Payne RN Position: S RN Member Role: Primary Care Nurse Name: Garima Hutchinson Position: S RN Member Role: Primary Care Nurse Name: Malgorzata Austin Position: S RN Member Role: Primary Care Nurse Name: Ibeth Adams RN Position: S RN Member Role: Primary Care Nurse Name: Torrie Hernandez RN Position: [facility] OB RN Member Role: Primary Care Nurse Name: Gretchen Knutson RN Position: [facility] SN RN Member Role: Primary Care Nurse Name: Aislinn Mckee RN Position: [facility] RN Member Role: Primary Care Nurse Name: Ashley Mcelroy Position: [facility] RN Member Role: Primary Care Nurse Name: Ashok Kevin RN Position: [facility] RN Member Role: Primary Care Nurse Name: Cody Garcia Position: [facility] Associate Professional Member Role: Lifetime Consulting Provider Address: Address: [address] [place] [address] Name: Paige Nascimento RN Position: [facility] RN Member Role: Primary Care Nurse Name: Ge Covarrubias RN Position: [facility] RN Member Role: Primary Care Nurse Name: Orin Elmore RN Position: [facility] ED RN W/OE and Tasks Member Role: Primary Care Nurse Name: Allegra Liu RN Position: [facility] SN RN Member Role: Primary Care Nurse Name: Shayan Pandya MD Position: [facility] Renal MD Member Role: Lifetime Consulting Physician Address: Address: [address] [place] [address] [address] [facility] [place] [place] [address]- Name: Kimberley Pittman RN Position: [facility] RN Member Role: Primary Care Nurse Name: Darlene Rodrigez RN Position: [facility] RN Member Role: Primary Care Nurse Name: Dixie Duke RN Position: [facility] RN Member Role: Primary Care Nurse Name: Kwan Mills RN Position: [facility] ED RN W/OE and Tasks Member Role: Primary Care Nurse Name: Ingrid Verdugo RN Position: [facility] RN Member Role: Primary Care Nurse Name: Monica Rowell RN Position: [facility] RN Member Role: Primary Care Nurse Name: Jimi Fitzpatrick RN Position: [facility] RN Member Role: Primary Care Nurse Care Team Related Persons Name: MARLEN CABEZAS Address: home [address], [place] Name: MARLEN CABEZAS Address: home [address] [place] [address] Name: NICK CABEZAS Name: GEMA CABEZAS Address: home [address], [place] Name: ELTON CHENG Address: home [address] [place] [id number]
--- OUTSIDE RECORDS SUMMARY | 2023-12-15 20:55 | XMS_ITS | Continuity of Care Document ---
Author Organization [facility] Address [address] [place] [address]- Care Team Providers Care Product Safety Professional Name Role Phone Jany Baig DO Primary Care Physician ( [phone] Encounter [facility] Date(s): 09/07/22 - 10/07/22 [facility] [address] [place] [address]- Allergies, Adverse Reactions, Alerts Substance Reaction Severity [...] Give n 1Result Comment: [facility]: [id number] 2Result Comment: [04/29/2017] [id number] 3Admin Note: FLUARIX 4Admin Note: 3 RDINJ 5Admin Note: #2 Medications acamprosate 333 mg oral delayed release tablet 1 tablet = 333 mg, By Mouth, 3 times a day, # 90 tablet, 4 Refills, Maintenance, 09/03/22 14:59:00 EDT, EC Tablet, [facility], Partial fill upon patient request if the prescription is for a schedule II opioid drug., 169, cm, 09/03/22 14:21:00... Start Date: 09/03/22 Status: Ordered amLODIPine 5 mg oral tablet 1 tablet, By Mouth, Daily, ^1R1., # 30 tablet, 2 Refills, Maintenance, 10/06/22 4:58:00 EDT, [facility], 176, cm, 09/07/22 8:56:00 EDT, Height, 82.1, kg, 09/07/22 8:59:00 EDT, Dry Weight Start Date: 10/06/22 Status: Ordered baclofen 10 mg oral tablet See Instructions, TAKE 1 TABLET BY MOUTH THREE TIMES DAILY, # 90 tablet, Refills 0, Maintenance, 08/07/22 12:26:00 EST, Instructions Replace Required Details, Route to Pharmacy Electronically, [facility], 176, cm, 08/07/22 11:37:00 EST, Height... Start Date: 08/07/22 Status: Ordered calcium (as carbonate)-vitamin D 500 mg-400 intl units oral tablet 1 tablet, By Mouth, Daily, ^1R1., # 28 tablet, 0 Refills, Maintenance, 10/01/22 15:19:00 EDT, [facility], 28, TAKE ONE TABLET BY MOUTH EVERY DAY ^1R1, 176, cm, 09/07/22 8:56:00 EDT, Height, 82.1, kg, 09/07/22 8:59:00 EDT, Dry Weight Start Date: 10/01/22 Status: Ordered Co Q-10 100 mg oral capsule See Instructions, TAKE 1 CAPSULE BY MOUTH FOUR TIMES DAILY, # 120 capsule, 6 Refills, Maintenance, 08/07/22 12:13:00 EST, [facility], 176, cm, 08/07/22 11:37:00 EST, [...] Gm, 11 Refills, Maintenance, 08/07/22 12:12:00 EST, [facility]/pharmacy #[id number], 30, USE 1 SPRAY(S) INTO EACH NOSTRIL TWICE A DAY, 176, cm,08/07/22 11:37:00 EST, Height, 79.8, kg, 07/31/22 2... Start Date: 08/07/22 Status: Ordered folic acid 1 mg oral tablet 1, tablet, By Mouth, Daily, R1., # 30 tablet, Refills 5, Tot. Refills 5, Maintenance, 10/06/22 4:59:00 EDT, Route to Pharmacy Electronically, [facility], 176, cm, 09/07/22 8:56:00 EDT, Height, 82.1, kg, 09/07/22 8:59:00 EDT, Dry Weight Start Date: 10/06/22 Status: Ordered furosemide 20 mg oral tablet 1, tablet, By Mouth, Daily, R1., # 30 tablet, Refills 5, Tot. Refills 5, Maintenance, 09/03/22 14:50:00 EDT, Route to Pharmacy Electronically, [facility], 169, cm, 09/03/22 14:21:00 EDT, Height, 69, kg, 08/16/22 1:04:00 EST, Dry Weight Start Date: 09/03/22 Status: Ordered gabapentin 300 mg oral capsule 300 mg, 1, capsule, By Mouth, 2 times a day, note dose/frequency change, # 180 capsule, Refills 4, Tot. Refills 4, Maintenance, 09/03/22 14:55:00 EDT, Route to Pharmacy Electronically, [facility], 169, cm, 09/03/22 14:21:00 EDT, Height, 69, kg... Start Date: 09/03/22 Stop Date: 11/27/23 Status: Ordered hydrOXYzine hydrochloride 10 mg oral tablet 2 tablet, By Mouth, 2 times a day, PRN NEEDED FOR ANXIETY (VIAL), # 30 tablet, 3 Refills, Maintenance, 09/24/22 17:01:00 EDT, [facility], 176, cm, 09/07/22 8:56:00 EDT, Height, 82.1, kg, 09/07/22 8:59:00 EDT, Dry Weight Start Date: 09/24/22 Status: Ordered lactulose 10 gm/15 ml oral syrup 15 mL, By Mouth, 2 times a day, # 120 mL, 6 Refills, Maintenance, 09/22/22 12:15:00 EDT, [facility], 4, TAKE 15ML BY MOUTH TWO TIMES A DAY, 176, cm, 09/07/22 8:56:00 EDT, Height, 82.1, kg, 09/07/22 8:59:00 EDT, Dry Weight Start Date: 09/22/22 Status: Ordered Lidoderm 5% film 1 patch, Topically, Daily, remove patches after 12 hours NSAIDS contraindicated High dose tylenol contraindicated remove patches after 12 hours Nueropathy, # 30 patch, 5 Refills, Maintenance, 09/03/22 16:34:00 EDT, [facility], Partial klaudia... Start Date: 09/03/22 Status: Ordered magnesium oxide 400 mg oral tablet 1 tablet, By Mouth, 2 times a day, # 60 tablet, 11 Refills, Maintenance, 03/13/22 8:37:00 EDT, [facility], 175, cm, 01/06/22 10:34:00 EDT, Height, 78.3, kg, 12/26/21 19:05:00 EDT, Dry Weight Start Date: 03/13/22 Status: Ordered Melatonin 3 mg oral tablet 1 tablet, By Mouth, Daily at bedtime, PRN NEEDED FOR INSOMNIA (PACKAGE IN TRAY)^1R4, # 60 tablet, 5 Refills, Maintenance, 06/12/22 18:11:00 EST, [facility], 60, TAKE 1 TABLET BY [...] 09/03/22 14:53:00 EDT, Route to Pharmacy Electronically, [facility], Partial fill upon patient request if the prescription is for a schedule II opioid drug... Start Date: 09/03/22 Stop Date: 03/02/23 Status: Ordered PHENobarbital 30 mg oral tablet See Instructions, Taper 09/08-Day 1 -90mg Daily Day 2-3-60mg BID Day 4-5 30mg BID, # 15 tablet, 0 Refills, Maintenance, 09/08/22 15:05:00 EDT, [facility], Partial fill upon patient request if the prescription is for a schedule II op... Start Date: 09/08/22 Status: Ordered pyridoxine 50 mg oral tablet 50 mg, 1, tablet, By Mouth, Daily, for 90 days, # 90 tablet, Refills 4, Tot. Refills 4, Acute 01/15/23 11:42:00 EDT, 10/22/21 11:42:00 EDT, Route to Pharmacy Electronically, [facility], Partial fill upon patient request [...] 90 tablet, 9 Refills, 08/07/22 12:27:00 EST, [facility]/pharmacy #[id number], 28, 1tablet By Mouth Daily, 176, cm, 08/07/22 11:37:00 EST, Height, 79.8, kg, 07/31/22 22:40:00 EST, DryWeight Start Date: 08/07/22 Status: Ordered traZODone 50 mg oral tablet 2 tablets, By Mouth, Daily at bedtime, # 60 each, Refills 5, Tot. Refills 5, Maintenance, 09/03/22 17:13:00 EDT, Route to Pharmacy Electronically, [facility], 169, cm, 09/03/22 14:21:00 EDT, Height, 69, kg, 08/16/22 1:04:00 EST, Dry Weight Start Date: 09/03/22 Status: Ordered Vitamin B1 100 mg oral tablet 1, tablet, By Mouth, Daily, # 90 tablet, Refills 3, Maintenance, 03/13/22 8:37:00 EDT, Route to Pharmacy Electronically, [facility], 175, cm, 01/06/22 10:34:00 EDT, Height, 78.3, kg, 12/26/2218:05:00 EDT, Dry Weight Start Date: 03/13/22 Status: Ordered Xifaxan 550 mg oral tablet 1 tablet, By Mouth, 2 times a day, ^1R1,1R4., # 60 tablet, 3 Refills, Maintenance, 10/01/22 15:19:00 EDT, [facility], 176, cm, 09/07/22 8:56:00 EDT, [...] Physician Member Role: PCP Address: Address: [address] [place] [address] Adult [facility] [place] [address]- Name: Neida Ballard RN Position: [facility] [...] Member Role: [employer] Consult[employer] Provider Address: Address: [address] [place] [id number]- [place] Name: Ge Covarrubias RN Position: [facility] [...] [facility] [place] [address]- Name: Darlene Rodrigez RN Position: S RN [...] Related Persons Name: MARLEN CABEZAS Address: home [address] [place] [id number] Name: MARLEN CABEZAS Address: [address] [place] [address] Name: NICK CABEZAS Name: GEMA CABEZAS Address: home [address] [place] [id number]
--- OUTSIDE RECORDS SUMMARY | 2023-12-15 20:55 | XMS_ITS | Continuity of Care Document ---
Author Organization [facility] Address [address] [place] [address]- Care Team Providers Care Thiokol Operator Name Role Phone Jany Baig DO Primary Care Physician [facility]counter [facility] Date(s): 03/13/22 - 04/12/22 [facility] [address] [place] [address]- Allergies, Adverse Reactions, Alerts Substance Reaction Severity [...] influenza virus vaccine, inactivated 3 02/28/13 Gi celopatra SARS-CoV-2 (COVID-19) mRNA-1273 vaccine 04/08/21 R ecorded [...] 08/02/12 Give n 1Result Comment: [facility]: [id number] 2Result Comment: [04/29/2017] [id number] 3Admin Note: FLUARIX 4Admin Note: 3 RDINJ 5Admin Note: #2 Medications acetaminophen 500 mg oral tablet 1 tablet, By Mouth, 4 times a day, PRN NEEDED FOR PAIN, MAX 4, PER DAY (VIAL., # 50 tablet, 11 Refills, Maintenance, 03/13/22 8:37:00 EDT, [facility], 175, cm, 01/06/22 10:34:00 EDT, Height, 78.3, kg, 12/26/21 19:05:00 EDT, Dry Weight Start Date: 03/13/22 Status: Ordered amLODIPine 5 mg oral tablet 5 mg, 1, tablet, By Mouth, Daily, # 30 tablet, Refills 5, Tot. Refills 5, Maintenance, 10/21/21 10:15:00 EDT, Route to Pharmacy Electronically, [facility], Partial fill upon patient request if the prescription is for a schedule II opioid drug.... Start Date: 10/21/21 Status: Ordered Co Q-10 100 mg oral capsule 1 capsule, By Mouth, 4 times a day, # 120 capsule, 5 Refills, Maintenance, 04/09/22 15:55:00 EDT, [facility], 175, cm, 04/09/22 15:34:00 EDT, Height, [...] Gm, 5 Refills, Maintenance, 02/18/22 10:02:00 EDT, [facility], 30, USE 1 SPRAY(S) INTO EACH NOSTRIL TWICE A DAY, 175, cm, 01/06/22 10:34:00 EDT, Height, 78.3, kg, 12/26/21 19... Start Date: 02/18/22 Status: Ordered folic acid 1 mg oral tablet 1 mg, 1, tablet, By Mouth, Daily, # 90 tablet, Refills 4, Tot. Refills 4, Maintenance, 10/27/21 10:40:00 EDT, Route to Pharmacy Electronically, [facility], Partial fill upon patient request if the prescription is for a schedule II opioid drug.... Start Date: 10/27/21 Stop Date: 01/20/23 Status: Ordered furosemide 20 mg oral tablet 1, tablet, By Mouth, Daily, note dose change, # 30 tablet, Refills 2, Tot. Refills 2, Maintenance, 04/09/22 15:53:00 EDT, Route to Pharmacy Electronically, [facility], 175, cm, 04/09/22 15:34:00 EDT, Height, 78.3, kg, 12/26/21 19:05:00 EDT, Start Date: 04/09/22 Stop Date: 07/08/22 Status: Ordered gabapentin 300 mg oral capsule 300 mg, 1, capsule, By Mouth, Daily at bedtime, note dose change, # 90 capsule, Refills 4, Tot. Refills 4, Maintenance, 04/09/22 15:53:00 EDT, Route to Pharmacy Electronically, [facility], Partial fill upon patient request if the prescription... Start Date: 04/09/22 Stop Date: 07/03/23 Status: Ordered hydrOXYzine hydrochloride 25 mg oral tablet 1 TO 2 TABLETS, By Mouth, 3 times a day, PRN NEEDED FOR ANXIETY (VIAL), # 60 tablet, 11 Refills,Maintenance, 03/13/22 8:38:00 EDT, [facility], 175, cm, 01/06/22 10:34:00 EDT, Height, 78.3, kg, 12/26/21 19:05:00 EDT, Dry Weight Start Date: 03/13/22 Status: Ordered lactulose 10 gm/15 ml oral syrup See Instructions, TAKE 30ML BY MOUTH THREE TIMES DAILY NEEDED TO ACHEIVE 3-4 BOWL MOVEMENTS PER DAY, # 3,000 mL, 10 Refills, [facility], 30, TAKE 30ML BY MOUTH THREE TIMES DAILY NEEDED TO ACHEIVE 3-4 BOWL MOVEMENTS PER DAY, 174, cm, 02/12... Start Date: 07/02/21 Status: Ordered lidocaine 0.5% topical gel 1 application, Topically, 3 times a day, # 120 Gm, 0 Refills, Acute 12/30/22 17:23:00 EDT, 12/30/2216:23:00 EDT, Gel, [facility], Partial fill upon patient request if the prescription is fora schedule II opioid drug., 1 application Topically... Start Date: 12/30/21 Stop Date: 12/30/22 Status: Ordered Lidoderm 5% film 1 patch, Topically, Daily, remove patches after 12 hours NSAIDS contraindicated High dose tylenol contraindicated, # 30 patch, 5 Refills, Maintenance, 12/26/21 9:33:00 EDT, [facility], Partial fill upon patient request if the prescription i... Start Date: 12/26/21 Status: Ordered magnesium oxide 400 mg oral tablet 1 tablet, By Mouth, 2 times a day, # 60 tablet, 11 Refills, Maintenance, 03/13/22 8:37:00 EDT, [facility], 175, cm, 01/06/22 10:34:00 EDT, Height, 78.3, kg, 12/26/21 19:05:00 EDT, Dry Weight Start Date: 03/13/22 Status: Ordered Melatonin 3 mg oral tablet 1 tablet, By Mouth, Daily at bedtime, PRN NEEDED FOR INSOMNIA (PACKAGE IN TRAY), # 60 tablet, 5 Refills, Maintenance, 06/02/21 16:17:00 EST, [facility], 28, 1 tablet By Mouth Daily [...] 04/09/22 16:00:00 EDT, Route to Pharmacy Electronically, [facility], Partial fill upon patient requestif the prescription is for a schedule II opioid remedios... Start Date: 04/09/22 Stop Date: 10/06/22 Status: Ordered Potassium Chloride (Eqv-K-Tab) 20 mEq oral tablet, extended release 2 tablet, By Mouth, Daily, # 60 tablet, 1 Refills, Maintenance, 03/13/22 12:37:00 EDT, [id number], 175, cm, 01/06/22 10:34:00 EDT, Height, 78.3, kg, 12/26/21 19:05:00 EDT, Dry Weight Start Date: 03/13/22 Status: Ordered pyridoxine 50 mg oral tablet 50 mg, 1, tablet, By Mouth, Daily, for 90 days, # 90 tablet, Refills 4, Tot. Refills 4, Acute 01/15/23 11:42:00 EDT, 10/22/21 11:42:00 EDT, [facility], [facility] [...] 0 Refills, Maintenance, 03/12/22 17:21:00 EDT, Tablet, [facility]/pharmacy #[id number], Partial fill upon patient request if the prescription is for a schedule II opioid drug., 175, cm,... Start Date: 03/12/22 Status: Ordered Tab-A-Jesse oral tablet 1 tablet, By Mouth, Daily, # 90 tablet, 9 Refills, [facility], 28, TAKE 1 TABLET BY MOUTH [...] Electronically, [facility], 175,cm, 01/06/22 10:34:00 EDT, Height, 78.3, kg, ... Start Date: 01/30/22 Status: Ordered traZODone 50 mg oral tablet See Instructions, TAKE 2-3 TABLETS BY MOUTH AT BEDTIME (ONE DOSE IN VIAL), # 90 tablet, Refills 5, Tot. Refills 5, Maintenance, 12/26/21 9:21:00 EDT, Instructions Replace Required Details, Route to Pharmacy Electronically, [facility], 170, cm,... Start Date: 12/26/21 Status: Ordered Vitamin B1 100 mg oral tablet 1, tablet, By Mouth, Daily, # 90 tablet, Refills 3, Maintenance, 03/13/22 8:37:00 EDT, Route to Pharmacy Electronically, [facility], 175, cm, 01/06/22 10:34:00 EDT, Height, 78.3, kg, 12/26/2218:05:00 EDT, Dry Weight Start Date: 03/13/22 Status: Ordered Xifaxan 550 mg oral tablet 1 tablet, By Mouth, 2 times a day, # 60 tablet, 1 Refills, Maintenance, 04/10/22 16:49:00 EDT, [facility], 175, cm, 04/09/22 15:34:00 EDT, Height, [...] Personnel Name: Jany Baig DO Address: Address: [address] [place] [address] [facility] [place], [place] [address]
--- OUTSIDE RECORDS SUMMARY | 2023-12-15 20:55 | XMS_ITS | Continuity of Care Document ---
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 Name Role Phone Jany Baig DO Primary Care Physician [place] [facility] [place]14[place]23 - 05/14/[address] [address]- Encounter Diagnosis Accidental overdose(Final) - 05/14/23 Discharge Disposition: A-D/C Home Attending Physician: Estela Carreon MD Admitting Physician: Estela Carreon MD Referring Physician: Not on Staff, Referring [...] 1Result Comment: [facility]: [id number] 2Result Comment: [04/29/2017] [id number] 3Admin Note: FLUARIX 4Admin Note: 3 RDINJ 5Admin Note: #2 Medications acamprosate 333 mg oral delayed release tablet 1 tablet = 333 mg, By Mouth, 3 times a day, # 42 tablet, 4 Refills, Maintenance, 11/05/22 11:31:00 EDT, EC Tablet, [facility], Partial fill upon patient request if the prescription is for a schedule II opioid drug., 175, cm, 11/05/22 10:21:00... Start Date: 11/05/22 Stop Date: 01/14/23 Status: Ordered amLODIPine 5 mg oral tablet 1 tablet, By Mouth, Daily, ^1R1., # 30 tablet, 5 Refills, Maintenance, 12/22/22 7:20:00 EDT, [facility], 175, cm, 12/03/22 11:50:00 EDT, Height, 88.9, kg, 10/21/22 20:41:00 EDT, Dry Weight Start Date: 12/22/22 Status: Ordered baclofen 10 mg oral tablet See Instructions, TAKE ONE TABLET BY MOUTH THREE TIMES A DAY ^1R1,1R2,1R4, # 90 tablet, Refills 5, Tot. Refills 5, Maintenance, 01/14/23 17:55:00 EDT, Instructions Replace Required Details, Route to Pharmacy Electronically, [facility], 175, cm... Start Date: 01/14/23 Status: Ordered calcium (as carbonate)-vitamin D 500 mg-400 intl units oral tablet 1 tablet, By Mouth, Daily, ^1R1., # 28 tablet, 0 Refills, Maintenance, 12/01/22 16:12:00 EDT, [facility], 28, 1 tablet [...] capsule, 6 Refills, Maintenance, 12/03/22 12:13:00 EDT, [facility], 175, cm, 12/03/22 [...] Gm, 12 Refills, Maintenance, 03/24/23 10:52:00 EDT, [facility], 28, APPLY TOPICALLY TO AFFECTED [...] Gm, 11 Refills, Maintenance, 08/07/22 12:12:00 EST, [facility]/pharmacy #[id number], 30, USE 1 SPRAY(S) INTO EACH NOSTRIL TWICE A DAY, 176, cm,08/07/22 11:37:00 EST, Height, 79.8, kg, 07/31/22 2... Start Date: 08/07/22 Status: Ordered folic acid 1 mg oral tablet 1, tablet, By Mouth, Daily, ^1R1., # 30 tablet, Refills 5, Maintenance, 03/20/23 16:22:00 EDT, Route to Pharmacy Electronically, [facility], 175, cm, 03/20/23 15:31:00 EDT, Height, 77.5, kg, 03/20/23 11:30:00 EDT, Dry Weight Start Date: 03/20/23 Status: Ordered furosemide 20 mg oral tablet 20 mg, 1, tablet, By Mouth, Every other day, # 30 tablet, Refills 3, Tot. Refills 3, Maintenance, 01/28/23 12:31:00 EDT, Route to Pharmacy Electronically, [facility], Partial fill upon patient request if the prescription is for a schedule II o... Start Date: 01/28/23 Status: Ordered gabapentin 300 mg oral capsule 300 mg, 1, capsule, By Mouth, Daily at bedtime, note dose/frequency change, # 90 capsule, Refills 4, Tot. Refills 4, Maintenance, 11/05/22 11:05:00 EDT, Route to Pharmacy Electronically, [facility], 175, cm, 11/05/22 10:21:00 EDT, Height, 88.9... Start Date: 11/05/22 Stop Date: 01/29/24 Status: Ordered hydrOXYzine hydrochloride 10 mg oral tablet 2 tablet, By Mouth, 2 times a day, PRN NEEDED FOR ANXIETY (VIAL), # 30 tablet, 3 Refills, Maintenance, 04/16/23 16:41:00 EDT, [facility], 175, cm, 03/22/23 6:50:00 EDT, Height, 77.5, kg, 03/20/23 11:30:00 EDT, Dry Weight Start Date: 04/16/23 Status: Ordered lactulose 10 gm/15 ml oral syrup 15 mL, By Mouth, 2 times a day, # 120 mL, 6 Refills, Maintenance, 02/26/23 10:11:00 EDT, [facility], 4, TAKE 15ML BY MOUTH TWO TIMES A DAY, 175, cm, 12/03/22 11:50:00 EDT, Height, 84, kg, 02/12/23 11:30:00 EDT, Dry Weight Start Date: 02/26/23 Status: Ordered magnesium oxide 400 mg oral tablet See Instructions, TAKE 1 TABLET BY MOUTH TWICE A DAY^1R1,1R4, # 60 tablet, 11 Refills, Maintenance,01/28/23 12:31:00 EDT, [facility], 175, cm, 12/03/22 11:50:00 EDT, Height, 88.9, kg, 10/21/22 20:41:00 EDT, Dry Weight Start Date: 01/28/23 Status: Ordered Melatonin 3 mg oral tablet 1 tablet, By Mouth, Daily at bedtime, PRN NEEDED FOR INSOMNIA (PACKAGE IN TRAY)^1R4, # 60 tablet, 5 Refills, Maintenance, 04/16/23 16:41:00 EDT, [facility], 60, TAKE 1 [...] 02/26/23 10:11:00 EDT, Route to Pharmacy Electronically, [facility], 175, cm, 12/03/22 11:50:00 EDT, Height, [...] 04/14/23 12:41:00 EDT, Route to Pharmacy Electronically, [facility], 175, cm, 03/22/23 6:50:00 EDT, Height, 77.5, kg, 03/20/23 11:30:00 EDT, Dry Weight Start Date: 04/14/23 Status: Ordered Tab-A-Jesse oral tablet 1 tablet, By Mouth, Daily, R1., # 30 tablet, 5 Refills, Maintenance, 05/06/23 19:16:00 EST, [facility], 30, TAKE 1 TABLET BY MOUTH ONCE A DAY^1R1, 175, cm, 03/22/23 6:50:00 EDT, Height, 77.5,kg, 03/20/23 11:30:00 EDT, Dry Weight Start Date: 05/06/23 Status: Ordered traZODone 50 mg oral tablet 2, tablet, By Mouth, Daily at bedtime, ^2R4., # 60 tablet, Refills 5, Maintenance, 02/26/23 10:11:00 EDT, Route to Pharmacy Electronically, [facility], 175, cm, 12/03/22 [...] 02/09/23 23:18:00 EDT, Route to Pharmacy Electronically, [facility], 175, cm, 12/03/22 11:50:00 EDT, Height, 88.9, kg, 10/21/22 20:41:00 EDT, Dry Weight Start Date: 02/09/23 Status: Ordered Vitamin B6 50 mg oral tablet 1, tablet, By Mouth, Daily, R1., # 90 tablet, Refills 4, Maintenance, 11/16/22 13:39:00 EDT, Route to Pharmacy Electronically, [facility], 175, cm, 11/13/22 [...] tablet, 3 Refills, Maintenance, 02/26/23 10:11:00 EDT, [facility], 175, cm, 12/03/22 11:50:00 EDT, Height, [...] Exam Date Time Procedure Performing Provider Status 05/14/23 9:07 PM Foot Min 3 Views Left Fredy Salinas; Auth (Verified) Notes: (Foot Min 3 Views Left) Reason For Exam: Pain, ecchymosis, trauma;Trauma RESULT: Foot Min 3 Views Left Foot Min 3 Views Left CLINICAL INDICATION: Hx of Present Illness: found unresponsive on the toiliet, given narcan nasal x2 by bystander. has been altered mental since, left leg discoloration. patient alert to person only.shivering.; Reason: Trauma; Pain, ecchymosis, trauma; Clinical Question(s): Fracture; Order Comment: Not ready @ 1918 COMPARISONS: 02/12/2023 TECHNIQUE: AP, lateral and oblique views of the left foot were obtained. FINDINGS: There is no fracture or dislocation. Status post arthrodesis of first MTP joint which is fused. Stable appearance of fusion hardware. MTP and IP joint spaces are otherwise maintained. The Lisfranc joint space is normally aligned. No retained foreign body. Hindfoot midfoot alignment is normal. IMPRESSION: No acute fracture or dislocation. WSN: [id number] Ordering Physician: Joseph Biswas Dictated By: Gerard Sanchez MD Dictated Date/Time: 05/14/23 9:23 pm Reviewed By: Gerard Sanchez MD Signed By: Gerard Sanchez MD Signed Date/Time: 05/14/23 9:23 pm Transcribed By: MIRNA Transcribed Date/Time: 05/14/23 9:21 pm * Exam Date Time Procedure Performing Provider Status 05/14/23 6:36 PM Chest Portable Luis Herbert; Auth (V erified) Notes: (Chest Portable) Reason For Exam: Shortness of Breath RESULT: Chest Portable Chest Portable Hx of Present Illness: found unresponsive on the toiliet, given narcan nasal x2 by bystander. has been altered mental since, left leg discoloration. patient alert to person only. shivering.; Reason: Shortness of Breath; Clinical Question(s): Pneumonia COMPARISON: 09/07/2022 FINDINGS: LINES AND TUBES: None. LUNGS AND PLEURA: Mild peripheral opacities in the left upper lung and right lung base, likely corresponding to overlapping findings of healed deformity of rib fractures with callus formation. No lobar consolidation. Mild left basilar atelectasis. Mild retrocardiac opacity. No pleural effusion. No pneumothorax. HEART, MEDIASTINUM AND DEEDEE: Heart is normal in size. Normal mediastinal and hilar contour. BONES AND SOFT TISSUES: No acute abnormality. Previous rib fractures with deformities, as before. There is also erosion and deformity at the distal left clavicle, also unchanged. Partially seen coil embolization and shunt in the upper abdomen. IMPRESSION: Mild retrocardiac opacity. This could represent aspiration or atelectasis. WSN: [id number] Ordering Physician: Houston Carpenter Dictated By: Eden Resendiz MD Dictated Date/Time: 05/14/23 6:38 pm Reviewed By: Eden Resendiz MD Signed By: Eden Resendiz MD Signed Date/Time: 05/14/23 6:38 pm Transcribed By: MIRNA Transcribed Date/Time: 05/14/23 6:36 pm Vital Signs Most recent to oldest [Reference Range]: 1 2 3 Oxygen Saturation [94-100 %] 94 % (05/14/23 10:03 PM) 100 % (05/14/23 6:28 PM) 84 % *L* (05/14/23 6:20 PM) Pulse Rate [55-90 bpm] 98 bpm *H* (05/14/23 10:03 PM) 110 bpm *H* (05/14/23 6:28 PM) 106 bpm *H* (05/14/23 6:20 PM) Blood Pressure [90-138/55-84 mm Hg] 123/68mm Hg (05/14/23 10:03 PM) 145/84mm Hg *H* (05/14/23 6:28 PM) 125/113mm Hg (05/14/23 6:20 PM) Respiratory Rate [16-30 br/min] 22 br/min (05/14/23 10:03 PM) 30 br/min (05/14/23 6:20 PM) Temperature [96.8-100.4 DegF] 97.3 DegF (05/14/23 6:20 PM) Liters per Minute 15 L/min (05/14/23 6:28 PM) 2 L/min (05/14/23 6:20 PM) Mode of Delivery (Oxygen) Room air (05/14/23 10:03 PM) Nonrebreather mask (05/14/23 6:28 PM) Nasal cannula (05/14/23 6:20 PM) Blood pressure sites Arm, left (05/14/23 6:20 PM) Temperature Route Rectal (05/14/23 6:20 PM) Social History Social History Type Response Smoking Status 10 or more cigarette s (1/2 pack or more)/day in last 30 days entered on: 02/04/19 Sex Note * Joseph Biswas MD: PERFORM Event Display: Patient Education Leaflets Authored Date: [id number] Opiate Overdose ?? [id number] Opiate Overdose You've been treated for an overdose of opiates, such as a prescription pain medicine or heroin.??Taking too many opiates is dangerous. They cause breathing to slow and possibly stop.??If you stop breathing for more than 2 to 3 minutes, your heart can stop and you will . Deaths from opiate overdose are a national epidemic. In 2019, the CDC estimated that more than 49,860 people in the [place] diedfrom an opioid overdose. This number reflects 70.6% of all drug overdose deaths. Signs and symptoms of overdose Symptoms can depend on how much of the drug and which ones were used. They include: ??? Trouble breathing or slow irregular breathing; breathing may even stop, which can cause ??? Drowsiness, trouble arousing, or coma ??? Small, pinpoint pupils ??? Cyanosis. This is when lips and nails appear blue because you don't have enough oxygen in the blood. ??? Slow heart rate ??? Lowbody temperature (hypothermia) ??? Muscle spasm ??? Seizures ??? If your overdose was severe, you may have been given an antidote, such as naloxone. The antidote effect lasts for about 1 to 2 hours.??If the opiate has not left your system by the time the antidote medicine wears off, your symptoms may return. These symptoms include drowsiness and slow breathing.?? If you were addicted and physically dependent on opiates, then naloxone may cause withdrawal symptoms to appear right away.??These may consist of: ??? Body aches ??? Diarrhea ??? Abdominal cramps ??? Upset stomach (nausea) ??? Vomiting ??? Runny nose ??? Sneezing ??? Sweating ??? Yawning ??? Restlessness ??? Irritability ??? Trembling These symptoms will go away as the naloxone wears off. Be aware of a drug called xylazine. This drug is approved for use in animals only. Xylazine is not safe in humans. Recently xylazine has been found as an additive in illicit drugs, especially heroin and fentanyl. Exposure to xylazine has been linked to serious and life-threatening side effects. Xylazine overdose can cause slow heart rate and breathing, low blood pressure, and coma. Repeated exposure to xylazine can cause severe skin ulcers. Xylazine overdose does not respond to naloxone. Care for xylazine overdose or exposure is supportive to help the body recover. ?? Home care The following guidelines will help you care for yourself at home: ??? Rest for the next [address] or operate any vehicle or dangerous equipment until all opioid effects have worn off and you no longer feel sleepy or drowsy. ??? If you were previously prescribed opioid medicines for pain, don't take any more of this medicine for the next 6 to 8 hours, unless your healthcare provider says it's safe to do so. ??? If opioids or other drugs were swallowed, you may have been given liquid charcoal to neutralize those drugs.??The charcoal may cause nausea and vomiting over the next few hours. It will also cause a black color to your stools for the next 1 to 2 days. Usually, you will be given a laxative with the charcoal to speed the removal of any toxins from the digestive tract. This may cause diarrhea for up to 24 hours. If no laxative was given, you may become constipated. If this happens, you may take an [id number] laxative or suppository. ?? Follow-up care Follow up with your healthcare provider, or as advised if all symptoms don't go away within 24 hours, or if constipation is not eased after 2 doses of laxatives.??If your overdose was related to a drug addiction, seek drug counseling. Consider a drug treatment program to help break your habit. ?? Call 911 Call 911 if any of the following occur: ??? Seizure ??? Trouble breathing or slow irregular breathing ??? Chest pain ??? Sudden weakness on 1 side of your body or sudden trouble speaking ??? Very drowsy or having trouble waking up ??? Fainting or loss of consciousness ??? Rapid heart rate ??? Very slow heart rate ?? When to get medical advice Call your healthcare provider right away if any of the following occur: ??? Cough with colored sputum ??? Fever of 100.4??F (38??C) or higher, or as directed by your healthcare provider ??? Redness, swelling or tenderness at the heroin injection site (if using IV drugs) ??? Feeling that you might harm yourself or another Talk with your healthcare provider if you feel that you want to get drugs and would like to enter acounseling or rehabilitation program. ?? Last Reviewed Date: 2022 ?? 3253-1690 [employer]. All rights reserved. This information is not intended as a substitute for professional medical care. Always follow your healthcare professional's instructions. ?? Patient Care team information Care Team Personnel Name: Alexandra Colmenares RN Position: [facility] ED RN W/OE and Tasks Member Role: Primary Care Nurse Name: Garima Manzano RN Position: [facility] RN Member Role: Primary Care Nurse Name: Malgorzata Marinelli RN Position: [facility] RN Member Role: Primary Care Nurse Name: Joyce Roach RN Position: [facility] ED RN W/OE and Tasks Member Role: Primary Care Nurse Name: Mary Suazo RN Position: [facility] RN Member Role: Primary Care Nurse Name: Andres Pressley RN Position: [facility] ED RN W/OE and Tasks Member Role: Primary Care Nurse Name: Jany Baig DO Position: [facility] Physician - Primary Care Member Role: PCP Address: Address: [address] [place] [address] Adult & Pediatric Medicine [address] Name: Kaye Payne RN Position: [facility] RN Member Role: Primary Care Nurse Name: Garima Hutchinson Position: [facility] RN Member Role: Primary Care Nurse Name: Malgorzata Austin Position: S RN Member Role: Primary Care Nurse Name: Ibeth Adams RN Position: [facility] RN [...] Care Nurse Name: Ashok Kevin RN Position: [facility] RN Member Role: Primary Care Nurse Name: Cody Garcia Position: [facility] Associate Professional Member Role: [employer] Provider Address: Address: [address] [place] [address]- Name: Paige Nascimento RN Position: [facility] RN Member Role: Primary Care Nurse Name: Ge Covarrubias RN Position: [facility] RN Member Role: Primary Care Nurse Name: Orin Elmore RN Position: [facility] ED RN W/OE and Tasks Member Role: Primary Care Nurse Name: Allegra Liu RN Position: [facility] AMB Nurse Member Role: Primary Care Nurse Name: Shayan Pandya MD Position: [facility] Renal MD Member Role: [employer] Physician Address: Address: [address] [place] [address] [address] [facility], [place] [address]- Name: Darlene Rodrigez RN Position: [facility] RN Member Role: Primary Care Nurse Name: Kwan Mills RN Position: [facility] RN Member Role: Primary Care Nurse Name: Dolores Can RN Position: [facility] RN Member Role: Primary Care Nurse Name: Ingrid Verdugo RN Position: [facility] RN Member Role: Primary Care Nurse Name: Monica Rowell RN Position: [facility] RN Member Role: Primary Care Nurse Name: Jimi Fitzpatrick RN Position: [facility] RN Member Role: Primary Care Nurse Name: Joseph Biswas MD Position: [facility] Resident Member Role: ED Resident Address: Address: [address] [place] [address]- Name: Estela Carreon MD Position: [facility] ED Medicine MD Member Role: Admitting Physician Address: Address: [address] [place] [id number]- Name: Nicho Estrella RN Position: [facility] ED RN W/OE and Tasks Member Role: Patient Care Provider Care Team Related Persons Name: MARLEN CABEZAS Address: home [address] [place] [address] Name: MARLEN CABEZAS Address: home [address] [place] [address] Name: NICK CABEZAS Name: GEMA CABEZAS Address: home [address] [place] [address]
--- OUTSIDE RECORDS SUMMARY | 2023-12-15 20:56 | XMS_ITS | Continuity of Care Document ---
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 Role Phone Jany Baig DO Primary Care Physician [place] [facility] [place]22 - 12/10/22 [facility] [address] [place], [place] [address] Allergies, Adverse Reactions, Alerts Substance Reaction Severity [...] [facility]: [id number] 2Result Comment: [04/29/2017] [id number] 3Admin Note: FLUARIX 4Admin Note: 3 RDINJ 5Admin Note: #2 Medications acamprosate 333 mg oral delayed release tablet 1 tablet = 333 mg, By Mouth, 3 times a day, # 42 tablet, 4 Refills, Maintenance, 11/05/22 11:31:00 EDT, [facility] upon patient request if the prescription is for a schedule II opioid drug., 175, cm, 11/05/22 10:21:00... Start Date: 11/05/22 Stop Date: 01/14/23 Status: Ordered amLODIPine 5 mg oral tablet 1 tablet, By Mouth, Daily, ^1R1., # 30 tablet, 2 Refills, Maintenance, 10/06/22 4:58:00 EDT, [facility], 176, cm, 09/07/22 8:56:00 EDT, Height, 82.1, kg, 09/07/22 8:59:00 EDT, Dry Weight Start Date: 10/06/22 Status: Ordered baclofen 10 mg oral tablet See Instructions, TAKE 1 TABLET BY MOUTH THREE TIMES DAILY, # 90 tablet, Refills 0, Tot. Refills 0,Maintenance, 12/01/22 16:12:00 EDT, Instructions Replace Required Details, [facility], 175, cm, 11/13/22 10:4... Start Date: 12/01/22 Status: Ordered calcium (as carbonate)-vitamin D 500 mg-400 intl units oral tablet 1 tablet, By Mouth, Daily, ^1R1., # 28 tablet, 0 Refills, Maintenance, 12/01/22 16:12:00 EDT, [facility], 28, 1 tablet By Mouth Daily,Instr:^1R1., [...] Refills, Maintenance, 12/03/22 12:13:00 EDT, [facility], 175, cm, 12/03/22 11:50:00 EDT, Height, [...] 11 Refills, Maintenance, 08/07/22 12:12:00 EST, [facility]/pharmacy #[id number], 30, USE 1 SPRAY(S) INTO EACH NOSTRIL TWICE A DAY, 176, cm,08/07/22 11:37:00 EST, Height, 79.8, kg, 07/31/22 2... Start Date: 08/07/22 Status: Ordered folic acid 1 mg oral tablet 1, tablet, By Mouth, Daily, R1., # 30 tablet, Refills 5, Tot. Refills 5, Maintenance, 10/06/22 4:59:00 EDT, Route to Pharmacy Electronically, [facility], 176, cm, 09/07/22 8:56:00 EDT, Height, [...] EDT, Route to Pharmacy Electronically, [facility], 169, cm, 09/03/22 14:21:00 EDT, Height, 69, kg, 08/16/22 1:04:00 EST, Dry Weight Start Date: 09/03/22 Status: Ordered gabapentin 300 mg oral capsule 300 mg, 1, capsule, By Mouth, Daily at bedtime, note dose/frequency change, # 90 capsule, Refills 4, Tot. Refills 4, Maintenance, 11/05/22 11:05:00 EDT, Route to Pharmacy Electronically, [facility], 175, cm, 11/05/22 10:21:00 EDT, Height, 88.9... Start Date: 11/05/22 Stop Date: 01/29/24 Status: Ordered hydrOXYzine hydrochloride 10 mg oral tablet 2 tablet, By Mouth, 2 times a day, PRN NEEDED FOR ANXIETY (VIAL), # 30 tablet, 3 Refills, Maintenance, 09/24/22 17:01:00 EDT[facility], 176, cm, 09/07/22 8:56:00 EDT, Height, 82.1, kg, 09/07/22 8:59:00 EDT, Dry Weight Start Date: 09/24/22 Status: Ordered lactulose 10 gm/15 ml oral syrup 15 mL, By Mouth, 2 times a day, # 120 mL, 6 Refills, Maintenance, 09/22/22 12:15:00 EDT, [facility], 4, TAKE 15ML BY MOUTH TWO TIMES A DAY, 176, cm, 09/07/22 8:56:00 EDT, Height, 82.1, kg, 09/07/22 8:59:00 EDT, Dry Weight Start Date: 09/22/22 Status: Ordered Lidoderm 5% film 1 patch, Topically, Daily, remove patches after 12 hours NSAIDS contraindicated High dose tylenol contraindicated remove patches after 12 hours Nueropathy, # 30 patch, 5 Refills, Maintenance, 11/05/22 11:04:00 EDT, [facility], Partial klaudia... Start Date: 11/05/22 Status: Ordered Melatonin 3 mg oral tablet 1 tablet, By Mouth, Daily at bedtime, PRN NEEDED FOR INSOMNIA (PACKAGE IN TRAY)^1R4, # 60 tablet, 5 Refills, Maintenance, 06/12/22 18:11:00 EST, [facility], 60, TAKE 1 TABLET BY MOUTH [...] 09/03/22 14:53:00 EDT, Route to Pharmacy Electronically, [facility], Partial fill upon patient request if [...] 11/05/22 11:31:00 EDT, Route to Pharmacy Electronically, [facility], Partial fill upon patient request if the prescription is for a schedule II opioid drug... Start Date: 11/05/22 Status: Ordered Tab-A-Jesse oral tablet 1 tablet, By Mouth, Daily, # 90 tablet, 1 Refills, 12/01/22 12:59:00 EDT, [facility], 28, 1tablet By Mouth Daily, 175, cm, 11/13/22 10:42:00 EDT, Height, 88.9, kg, 10/21/22 20:41:00 EDT, DryWeight Start Date: 12/01/22 Status: Ordered traZODone 50 mg oral tablet 2 tablets, By Mouth, Daily at bedtime, # 60 each, Refills 5, Tot. Refills 5, Maintenance, 09/03/22 17:13:00 EDT, Route to Pharmacy Electronically, [facility], 169, cm, 09/03/22 14:21:00 EDT, Height, [...] 03/13/22 8:37:00 EDT, Route to Pharmacy Electronically, [facility], 175, cm, 01/06/22 10:34:00 EDT, Height, 78.3, kg, 12/26/2218:05:00 EDT, Dry Weight Start Date: 03/13/22 Status: Ordered Vitamin B6 50 mg oral tablet 1, tablet, By Mouth, Daily, R1., # 90 tablet, Refills 4, Maintenance, 11/16/22 13:39:00 EDT, Route to Pharmacy Electronically, [facility], 175, cm, 11/13/22 10:42:00 EDT, Height, 88.9, kg, 10/21/22 20:41:00 EDT, Dry Weight Start Date: 11/16/22 Status: Ordered Voltaren 1% topical gel 1 application, Topically, 4 times a day, PRN for pain, # 100 Gm, 0 Refills, Maintenance, 12/01/22 16:12:00 EDT, Gel, [facility], Partial fill upon patient request if [...] tablet, 3 Refills, Maintenance, 10/01/22 15:19:00 EDT, [facility], 176, cm, 09/07/22 8:56:00 EDT, Height, [...] Team Personnel Name: Alexandra Colmenares RN Position: [facility] ED RN W/OE and Tasks Member Role: Primary Care Nurse Name: Garima Manzano RN Position: [facility] RN Member Role: Primary Care Nurse Name: Malgorzata Marinelli RN Position: [facility] RN Member Role: Primary Care Nurse Name: Joyce Roach RN Position: [facility] RN Member Role: Primary Care Nurse Name: Mary Suazo RN Position: [facility] RN Member Role: Primary Care Nurse Name: Andres Pressley RN Position: [facility] RN Member Role: Primary Care Nurse Name: Jany Baig DO Position: [facility] Physician - Primary Care Member Role: PCP Address: Address: [address] [place] [address] Adult [facility] [place] [address]- Name: Neida Ballard RN Position: [facility] RN Member Role: Primary Care Nurse Name: Kaye Payne RN Position: [facility] RN Member Role: Primary Care Nurse Name: Garima Hutchinson Position: [facility] RN Member Role: Primary Care Nurse Name: Malgorzata Austin Position: [facility] RN Member Role: Primary Care Nurse Name: Ibeth Adams RN Position: [facility] RN Member Role: Primary Care Nurse Name: Torrie Hernandez RN Position: [facility] OB RN Member Role: Primary Care Nurse Name: Gretchen Knutson RN Position: [facility] SN RN Member Role: Primary Care Nurse Name: Aislinn Mckee RN Position: [facility] RN Member Role: Primary Care Nurse Name: Ashley Mcelroy Position: [facility] RN Member Role: Primary Care Nurse Name: Cody Garcia Position: [facility] Associate Professional Member Role: Lifetime Consulting Provider Address: Address: [address] [place] [address]- Name: Ge Covarrubias RN Position: [facility] RN Member Role: Primary Care Nurse Name: Orin Elmore RN Position: [facility] ED RN W/OE and Tasks Member Role: Primary Care Nurse Name: Allegra Liu RN Position: [facility] AMB Nurse Member Role: Primary Care Nurse Name: Shayan Pandya MD Position: [facility] Renal MD Member Role: Lifetime Consulting Physician Address: Address: [address] [place] [address] [address] [facility] [place] [address]- Name: Darlene Rodrigez RN Position: [facility] RN Member Role: Primary Care Nurse Name: Kwan Mills RN Position: S RN Member Role: Primary Care Nurse Name: Dolores Can RN Position: [facility] RN Member Role: Primary Care Nurse Name: Kim Rendon RN Position: [facility] RN Member Role: Primary Care Nurse Name: Monica Rowell RN Position: [facility] RN Member Role: Primary Care Nurse Name: Jimi Fitzpatrick RN Position: [facility] RN Member Role: Primary Care Nurse Care Team Related Persons Name: MARLEN CABEZAS Address: [place] [address] Name: MARLEN CABEZAS Address: [place] [address] Name: NICK CABEZAS Name: GEMA CABEZAS Address: [place] [address]
--- OUTSIDE RECORDS SUMMARY | 2023-12-15 20:56 | XMS_ITS | Continuity of Care Document ---
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 Role Phone Jany Baig DO Primary Care Physician Encounter [facility] Date(s): 07/07/23 - 08/06/23 [facility] [address] [place], [place] [address] Allergies, Adverse Reactions, [...] Give n 1Result Comment: [facility]: [id number] 2Result Comment: [04/29/2017] [id number] 3Admin Note: FLUARIX 4Admin Note: 3 RDINJ [...] tablet, 2 Refills, Maintenance, 07/28/23 11:06:00 EST, [facility], 175, cm, 07/28/23 9:11:00 EST, Height, 61.3, kg, 07/12/23 23:27:00 EST, Dry Weight Start Date: 07/28/23 Status: Ordered amLODIPine 5 mg oral tablet 1 tablet, By Mouth, Daily, ^1R1., # 30 tablet, 2 Refills, Maintenance, 06/02/23 8:00:00 EST, [facility], 175, cm, 03/22/23 6:50:00 EDT, [...] 07/28/23 11:10:00 EST, Route to Pharmacy Electronically, [facility], Partial fill upon patient request if [...] Gm, 12 Refills, Maintenance, 07/28/23 11:06:00 EST, [facility], 28, APPLY TOPICALLY TO AFFECTED AREA(S) [...] Gm, 1 Refills, Maintenance, 07/28/23 12:07:00 EST, [facility], 30, USE 1 SPRAY(S) INTO EACH [...] 07/28/23 12:09:00 EST, Route to Pharmacy Electronically, [facility], 175, cm, 07/28/23 9:11:00 EST, Height, [...] tablet, 3 Refills, Maintenance, 07/28/23 12:10:00 EST, [facility], 175, cm, 07/28/23 9:11:00 EST, Height, 61.3, kg,07/12/23 23:27:00 EST, Dry Weight Start Date: 07/28/23 Status: Ordered lactulose 10 gm/15 ml oral syrup 30 mL = 20 Gm, By Mouth, 3 times a day, for 30 days, # 2,700 mL, 2 Refills, Acute 10/26/23 12:13:00EDT, 07/28/23 12:13:00 EST, Syrup, [facility], Partial fill upon patient request if [...] 60 tablet, 11 Refills, Maintenance,07/28/23 12:09:00 EST, [facility], 175, cm, 07/28/23 9:11:00 EST, Height, [...] tablet, 5 Refills, Maintenance, 07/28/23 12:09:00 EST, [facility], 60, 1 tablet By Mouth Daily [...] 07/28/23 12:11:00 EST, Route to Pharmacy Electronically, [facility], 175, cm, 07/28/23 9:11:00EST, Height, 61.3, [...] 07/28/23 12:12:00 EST, Route to Pharmacy Electronically, [facility], 175, cm, 07/28/23 9:11:00 EST, Height, 61.3, kg, 07/12/23 23:27:00 EST, Dry Weight Start Date: 07/28/23 Status: Ordered spironolactone 25 mg oral tablet 1, tablet, By Mouth, Daily, ^1R2., # 30 tablet, Refills 5, Tot. Refills 5, Maintenance, 04/14/23 12:41:00 EDT, Route to Pharmacy Electronically, [facility], 175, cm, 03/22/23 6:50:00 EDT, Height, 77.5, kg, 03/20/23 11:30:00 EDT, Dry Weight Start Date: 04/14/23 Status: Ordered Tab-A-Jesse oral tablet 1 tablet, By Mouth, Daily, R1., # 30 tablet, 5 Refills, Maintenance, 05/06/23 19:16:00 EST, [facility], 30, TAKE 1 TABLET BY [...] 10:11:00 EDT, Route to Pharmacy Electronically, [facility], 175, cm, 12/03/22 11:50:00 EDT, Height,84, kg, 02/12/23 11:30:00 EDT, Dry Weight Start Date: 02/26/23 Status: Ordered traZODone 50 mg oral tablet 2, tablet, By Mouth, Daily at bedtime, ^2R4., # 60 tablet, Refills 5, Tot. Refills 5, Maintenance, 07/28/23 12:12:00 EST, Route to Pharmacy Electronically, [facility], 175, cm, 07/28/23 9:11:00 EST, Height, [...] 23:18:00 EDT, Route to Pharmacy Electronically, [facility], 175, cm, 12/03/22 11:50:00 EDT, Height, 88.9, kg, 10/21/22 20:41:00 EDT, Dry Weight Start Date: 02/09/23 Status: Ordered Vitamin B1 100 mg oral tablet 1, tablet, By Mouth, Daily, # 90 tablet, Refills 3, Tot. Refills 3, Maintenance, 07/28/23 12:12:00 EST, Route to Pharmacy Electronically, [facility], 175, cm, 07/28/23 9:11:00 EST, Height, 61.3, kg, 07/12/23 23:27:00 EST, Dry Weight Start Date: 07/28/23 Status: Ordered Vitamin B6 50 mg oral tablet 1, tablet, By Mouth, Daily, R1., # 90 tablet, Refills 4, Maintenance, 11/16/22 13:39:00 EDT, Route to Pharmacy Electronically, [facility], 175, cm, 11/13/22 10:42:00 EDT, Height, 88.9, kg, 10/21/22 20:41:00 EDT, Dry Weight Start Date: 11/16/22 Status: Ordered Vitamin B6 50 mg oral tablet 1, tablet, By Mouth, Daily, R1., # 90 tablet, Refills 4, Tot. Refills 4, Maintenance, 07/28/23 12:11:00 EST, Route to Pharmacy Electronically, [facility], 175, cm, 07/28/23 9:11:00 EST, Height, [...] each, 1 Refills, Maintenance, 07/28/23 14:33:00 EST, [facility], 175, cm, 07/28/23 9:11:00 EST, Height, [...] RN Member Role: Primary Care Nurse Name: iLsa Nunez RN Position: S RN Member Role: Primary Care Nurse Name: Alexandra Colmenares RN [facility] [...] Care Nurse Name: Lucina Peralta RN Position: [facility] RN Member Role: Primary Care Nurse Name: Maria Esther Craig LPN Position: [facility] RN Member Role: Primary Care Nurse Name: Andres Pressley RN Position: [facility] ED RN W/OE and Tasks Member Role: Primary Care Nurse Name: Jany Baig DO Position: [facility] Physician - Primary Care Member Role: PCP Address: Address: [address] [place] [address] [place] [address]- Name: Kaye Payne RN Position: [facility] RN Member Role: Primary Care Nurse Name: Garima Curry RN Position: [facility] RN Member [...] Role: Lifetime Consulting Provider Address: Address: [address] [place] [address]- Name: Paige Nascimento RN Position: [facility] RN Member Role: Primary Care Nurse Name: Ge Covarrubias RN Position: [facility] RN Member Role: Primary Care Nurse Name: Orin Elmore RN Position: [facility] ED RN W/OE and Tasks Member Role: Primary Care Nurse Name: Noe LOUIE, Allegra Elliott Position: [facility] AMB Nurse Member Role: Primary Care Nurse Name: Shayan Pandya MD Position: [facility] Renal MD Member Role: Lifetime Consulting Physician Address: Address: [address] [facility], [place] [address]- Name: Kimberley Pittman RN Position: [facility] RN Member Role: Primary Care Nurse Name: Darlene Rodrigez RN Position: [facility] RN Member Role: Primary Care Nurse Name: Dixie Duke RN Position: [facility] RN Member Role: Primary Care Nurse Name: Kwan Mills RN Position: [facility] ED RN [...] Related Persons Name: CAWUMARLEN Address: [address] [place] [address] Name: MARLEN CABEZAS Address: [address] [place] [address] Name: NICK CABEZAS Name: GEMA CABEZAS Address: [address] [place] [address] Name: ELTON CHENG Address: home [address] [place] [id number]
--- OUTSIDE RECORDS SUMMARY | 2023-12-15 20:56 | XMS_ITS | Continuity of Care Document ---
Author Organization [facility] ter Address [address] [place] [id number]- Care Team Providers Care Supervisor Communications And Signals Name Role Phone Jany Baig DO Primary Care Physician ( [phone] Encounter [facility] Date(s): 08/16/22 - 08/16/[address] [address]- Discharge Disposition: A-D/C Home Attending Physician: Jem Roberson MD Admitting Physician: Jem Roberson MD Referring Physician: Not on Staff, Referring [...] acel (oldterm) 08/02/12 Give n 1Result Comment: [facility]: [id number] 2Result Comment: [04/29/2017] [id number] 3Admin Note: FLUARIX 4Admin Note: 3 RDINJ 5Admin Note: #2 Medications acetaminophen 500 mg oral tablet 1 tablet, By Mouth, 4 times a day, PRN NEEDED FOR PAIN, MAX 4, PER DAY (VIAL., # 50 tablet, 11 Refills, Maintenance, 03/13/22 8:37:00 [facility], cm, 01/06/22 10:34:00 EDT, Height, 78.3, kg, 12/26/21 19:05:00 EDT, Dry Weight Start Date: 03/13/22 Status: Ordered amLODIPine 5 mg oral tablet See Instructions, TAKE 1 TABLET BY MOUTH ONCE A DAY^1R1, # 30 tablet, 5 Refills, Maintenance, 05/13/22 16:24:00 EST, [facility], 175, cm, 04/09/22 15:34:00 EDT, Height, 78.3, kg, 12/26/21 19:05:00 EDT, Dry Weight Start Date: 05/13/22 Status: Ordered baclofen 10 mg oral tablet See Instructions, TAKE 1 TABLET BY MOUTH THREE TIMES DAILY, # 90 tablet, Refills 0, Maintenance, 08/07/22 12:26:00 EST, Instructions Replace Required Details, Route to Pharmacy Electronically, [facility], 176, cm, 08/07/22 11:37:00 EST, Height... Start Date: 08/07/22 Status: Ordered cephalexin monohydrate 500 mg oral capsule 1 capsule = 500 mg, By Mouth, 4 times a day, for 10 days, # 40 capsule, 0 Refills, Acute 08/24/22 13:49:00 EDT, 08/14/22 13:49:00 EST, Capsule, [facility]/pharmacy #[id number], Partial fill upon patient request if the prescription is for a schedule II opioid drug.... Start Date: 08/14/22 Stop Date: 08/24/22 Status: Ordered Co Q-10 100 mg oral capsule See Instructions, TAKE 1 CAPSULE BY MOUTH FOUR TIMES DAILY, # 120 capsule, 6 Refills, Maintenance, 08/07/22 12:13:00 EST, [facility], 176, cm, 08/07/22 11:37:00 EST, [...] 10/27/21 10:40:00 EDT, Route to Pharmacy Electronically, [facility], Partial fill upon patient request if the prescription is for a schedule II opioid drug.... Start Date: 10/27/21 Stop Date: 01/20/23 Status: Ordered furosemide 20 mg oral tablet See Instructions, TAKE 1 TABLET BY MOUTH ONCE A DAY^1R1, # 30 tablet, Refills 2, Maintenance, 08/07/22 12:27:00 EST, Instructions Replace Required Details, Route to Pharmacy Electronically, [facility], 176, cm, 08/07/22 11:37:00 EST, Height, 7... Start Date: 08/07/22 Status: Ordered furosemide 20 mg oral tablet 1, tablet, By Mouth, Daily, R1., # 30 tablet, Refills 5, Tot. Refills 5, Maintenance, 08/10/22 16:49:00 EST, Route to Pharmacy Electronically, [facility]/pharmacy #[id number], 176, cm, 08/07/22 11:37:00 EST, Height, 79.8, kg, 07/31/22 22:40:00 EST, Dry Weight Start Date: 08/10/22 Status: Ordered gabapentin 300 mg oral capsule 2, capsule, By Mouth, Daily at bedtime, # 180 capsule, Refills 4, Maintenance, 08/10/22 16:53:00 EST, Route to Pharmacy Electronically, [id number], 176, cm, 08/07/22 11:37:00 EST, Height, 79.8, kg, 07/31/22 22:40:00 EST, Dry Weight Start Date: 08/10/22 Stop Date: 11/08/22 Status: Ordered hydrOXYzine hydrochloride 25 mg oral tablet 1 TO 2 TABLETS, By Mouth, Daily at bedtime, PRN NEEDED FOR ANXIETY (VIAL), # 60 tablet, 11 Refills, Maintenance, 03/13/22 8:38:00 EDT, [facility], 175, cm, 01/06/22 10:34:00 EDT, Height, 78.3, kg, 12/26/21 19:05:00 EDT, Dry Weight Start Date: 03/13/22 Status: Ordered lactulose 10 gm/15 ml oral syrup See Instructions, TAKE 30ML BY MOUTH THREE TIMES DAILY NEEDED TO ACHEIVE 3-4 BOWL MOVEMENTS PER DAY, # 3,000 mL, 10 Refills, [facility], 30, TAKE 30ML BY MOUTH THREE TIMES DAILY NEEDED TO ACHEIVE 3-4 BOWL MOVEMENTS PER DAY, 174, cm, 02/12... Start Date: 07/02/21 Status: Ordered Lidoderm 5% film 1 patch, Topically, Daily, remove patches after 12 hours NSAIDS contraindicated High dose tylenol contraindicated remove patches after 12 hours Rib fracture, # 30 patch, 5 Refills, Maintenance, 08/07/22 12:09:00 EST, [facility]/pharmacy #[id number], Partial f... Start Date: 08/07/22 Status: Ordered magnesium oxide 400 mg oral tablet 1 tablet, By Mouth, 2 times a day, # 60 tablet, 11 Refills, Maintenance, 03/13/22 8:37:00 EDT, [facility], 175, cm, 01/06/22 10:34:00 EDT, Height, 78.3, kg, 12/26/21 19:05:00 EDT, Dry Weight Start Date: 03/13/22 Status: Ordered Melatonin 3 mg oral tablet 1 tablet, By Mouth, Daily at bedtime, PRN NEEDED FOR INSOMNIA (PACKAGE IN TRAY)^1R4, # 60 tablet, 5 Refills, Maintenance, 06/12/22 18:11:00 EST, [facility], 60, TAKE 1 TABLET BY MOUTH [...] 08/07/22 12:14:00 EST, Route to Pharmacy Electronically, [facility]/pharmacy #[id number], Partial fill upon patient requestif the prescription is for a schedule II opioid remedios... Start Date: 08/07/22 Stop Date: 02/03/23 Status: Ordered Potassium Chloride (Eqv-K-Tab) 20 mEq oral tablet, extended release 2 tablet, By Mouth, Daily, # 180 tablet, 1 Refills, Maintenance, 05/13/22 9:48:00 EST, [facility], 175, cm, 04/09/22 15:34:00 EDT, Height, 78.3, kg, 12/26/21 19:05:00 EDT, Dry Weight Start Date: 05/13/22 Stop Date: 11/09/22 Status: Ordered pyridoxine 50 mg oral tablet 50 mg, 1, tablet, By Mouth, Daily, for 90 days, # 90 tablet, Refills 4, Tot. Refills 4, Acute 01/15/23 11:42:00 EDT, 10/22/21 11:42:00 EDT, Route to Pharmacy Electronically, [facility], Partial fill upon patient request if [...] 0 Refills, Maintenance, 08/01/22 16:17:00 EST, Tablet, [facility]/pharmacy #[id number], Partial fill upon patient request if the prescription is for a schedule II opioid drug., 176, cm, 08/01/22 15:52:00 EST, Height... Start Date: 08/01/22 Stop Date: 08/20/22 Status: Ordered traZODone 50 mg oral tablet 2 TO 3 TABLETS, By Mouth, Daily at bedtime, #28 VIAL)^2R4., # 90 tablet, Refills 5, Maintenance, 06/12/22 18:11:00 EST, Route to Pharmacy Electronically, [facility], 179, cm, 06/08/22 7:37:00EST, Height, 84, kg, 06/01/22 12:27:00 EST, Dry Weight Start Date: 06/12/22 Status: Ordered Vitamin B1 100 mg oral tablet 1, tablet, By Mouth, Daily, # 90 tablet, Refills 3, Maintenance, 03/13/22 8:37:00 EDT, Route to Pharmacy Electronically, [facility], 175, cm, 01/06/22 10:34:00 EDT, Height, 78.3, kg, 12/26/2218:05:00 EDT, Dry Weight Start Date: 03/13/22 Status: Ordered Xifaxan 550 mg oral tablet 1 tablet, By Mouth, 2 times a day, ^1R1,1R4., # 60 tablet, 1 Refills, Maintenance, 06/12/22 18:10:00 EST, [facility], 179, cm, 06/08/22 7:37:00 EST, Height, [...] Exam Date Time Procedure Performing Provider Status 08/16/22 1:51 AM Foot Min 3 Views Left Julia Mccabe a; Auth (Verified) Notes: (Foot Min 3 Views Left) Reason For Exam: Trauma RESULT: Foot Min 3 Views Left Foot Min 3 Views Left, 3 views Hx of Present Illness: ETOH cut great toe on yesy; Reason: Trauma; Clinical Question(s): Fracture COMPARISON: Left foot radiographs dated 04/02/2020. FINDINGS: Status post fusion of the first metatarsophalangeal joint with a dorsal plate and screw construct as well as an additional screw. Osseous fusion appears solid and the hardware appears intact. No acute displaced fracture or dislocation. No arthritic changes. There is soft tissue swelling on the dorsum of the foot and in the distal lower leg. IMPRESSION: Soft tissue swelling with no acute displaced fracture. WSN: [id number] Ordering Physician: Sushma Yoder Dictated By: Perlita Tapia MD Dictated Date/Time: 08/16/22 5:38 am Reviewed By: Perlita Tapia MD Signed By: Perlita Tapia MD Signed Date/Time: 08/16/22 5:38 am Transcribed By: MIRNA Transcribed Date/Time: 08/16/22 5:36 am Vital Signs Most recent to oldest [Reference Range]: 1 2 3 Height 169 cm (08/16/22 1:04 AM) Weight 69 kg (08/16/22 1:04 AM) Oxygen Saturation [94-100 %] 97 % (08/16/22 6:25 AM) 96 % (08/16/22 1:04 AM) 96 % (08/16/22 1:03 AM) Pulse Rate [55-90 bpm] 60 bpm (08/16/22 6:25 AM) 52 bpm *L* (08/16/22 1:04 AM) 52 bpm *L* (08/16/22 1:03 AM) Blood Pressure [90-138/55-84 mm Hg] 138/90mm Hg (08/16/22 6:25 AM) 149/92mm Hg *H* (08/16/22 1:04 AM) 149/92mm Hg *H* (08/16/22 1:03 AM) Respiratory Rate [16-30 br/min] 19 br/min (08/16/22 6:25 AM) 20 br/min (08/16/22 1:04 AM) 20 br/min (08/16/22 1:03 AM) Temperature [96.8-100.4 DegF] 98.4 DegF (08/16/22 6:25 AM) 98.2 DegF (08/16/22 1:04 AM) 98.2 DegF (08/16/22 1:03 AM) Mode of Delivery (Oxygen) Room air (08/16/22 6:25 AM) Room air (08/16/22 1:04 AM) Room air (08/16/22 1:03 AM) Blood pressure sites Arm, right (08/16/22 6:25 AM) Arm, right (08/16/22 1:04 AM) Arm, right (08/16/22 1:03 AM) Temperature Route Oral (08/16/22 6:25 AM) Oral (08/16/22 1:04 AM) Oral (08/16/22 1:03 AM) Dry Weight 69 kg (08/16/22 1:04 AM) Social History Social History Type Response Smoking Status 10 or more cigarette s (1/2 pack or more)/day in last 30 days entered on: 02/04/19 Sex EKG study * Event Display: ECG 12-Lead Authored Date: Please click on pdf link to open report * Event Display: ECG 12-Lead Authored Date: [id number] Ventricular Rate: 100 BPM Atrial Rate: 100 BPM P-R Interval: 182 ms QRS Duration: 86 ms Q-T Interval: 386 ms QTC Calculation(Bazett): 497 ms P [place]: 37 degrees R [place]: 22 degrees T [place]: 37 degrees Normal sinus rhythm Normal ECG When compared with ECG of 14-AUG-2022 12:58, No significant change was found Confirmed by ZOIE CUENCA ([id number]) on 08/16/2022 9:05:21 AM [place]: ZOIE CUENCA Note * Sushma Champagne: PERFORM Event Display: Patient Education Leaflets Authored Date: [id number] Multiple Documents ?? [id number] Leg Swelling in Both Legs Swelling of the feet, ankles, and legs is called edema. It's caused by extra fluid that has collected in the tissues. Extra fluid in the body settles in the lowest part because of gravity. This is why the legs and feet are most affected. Some of the causes for edema include: ??? Disease of the heart, such as congestive heart failure ??? Standing or sitting for long periodsof time ??? Infection of the feet or legs ??? Blood pooling in the veins of your legs (venous insufficiency) when the veins have less elasticity ??? Dilated veins in your lower leg (varicose veins) ??? Poor drainage of the lymphatic system ??? Some medicines, including some hormones such as control pills, some blood pressure medicines such as calcium channel blockers, steroids, and some antidepressants such as MAO inhibitors and tricyclics ??? Menstrual periods that cause you to retain fluids ??? Many types of kidney disease ??? Liver failure??or cirrhosis ??? , in which some swelling is normal, but a sudden increase in leg swelling or weight gain can be a sign of a dangerouscomplication of called eclampsia ??? Poor nutrition ??? Thyroid disease Treatment will depend on what is causing the swelling in your legs. Your healthcare provider may prescribe water pills (diuretics) to get rid of the extra fluid. Home care Follow these guidelines when caring for yourself at home: ??? Keep your legs up while lying or sitting. ??? If infection, injury, or recent surgery is causing the swelling, stay off your legs as muchas possible until symptoms get better. ??? If your healthcare provider says that your leg swelling is caused by venous insufficiency or varicose veins, don't sit or sr. manager marketing one place for long periods of time. Take breaks and walk about every few hours. Brisk walking is a good exercise. It helps circulate the blood that has collected in your leg. Talk with your provider about using support stockings to stop daytime leg swelling. ??? If your provider says that heart disease is causing your leg swelling, follow a low-salt diet to stop extra fluid from staying in your body. You may also need medicine. ?? Follow-up care Follow up with your healthcare provider, or as advised. ?? When to get medical advice Call your healthcare provider right away if any of these occur: ??? Swelling in both legs or ankles that gets worse ??? Belly (abdominal) swelling ??? Redness, warmth, or swelling in 1 leg ??? Fever of 100.4??F (38??C) or higher,??or as advised by your provider ??? Yellow color to your skin or eyes ??? Rapid, unexplained weight gain ??? Having to sleep upright or use more pillows ? Call 911 Call 911 or get medical care right away if you have: ??? New shortness of breath or chest pain ??? Worsening shortness of breath or chest pain? Last Reviewed Date: 2022 ?? 2962-8671 [employer]. All rights reserved. This information is not intended as a substitute for professional medical care. Always follow your healthcare professional's instructions. ?? * Sushma Champagne: PERFORM Event Display: Patient Education Leaflets Authored Date: [id number] Multiple Documents ?? [id number] Abrasions Abrasions are skin scrapes. Their treatment depends on how large and deep the abrasion is. Home care You may be prescribed an antibiotic cream or ointment to apply to the wound. This helps prevent infection. Follow instructions when using this medicine. General care ??? To care for the abrasion, do the following each day for as long as directed by your healthcare provider: o If you were given a bandage, change it once a day. If your bandage sticks to the wound, soak it in warm water until it loosens. o Wash the area with soap and warm water. You may do this in a sink or under a tub faucet or shower. Rinse off the soap. Then pat the area dry witha clean towel. o If antibiotic ointment or cream was prescribed, reapply it to the wound as directed. Cover the wound with a fresh nonstick bandage. If the bandage becomes wet or dirty, change it as soon as possible. o Some antibiotic ointments or cream can cause an allergic reaction or dermatitis.This may cause redness, itching, or hives. If this occurs, stop using the ointment right away and wash off any remaining ointment. You may need to take some allergy medicine to relieve symptoms. ??? You may use acetaminophen or ibuprofen to control pain unless another pain medicine was prescribed.??Talk with your healthcare provider before using these medicines if you have chronic liver or kidneydisease, or ever had a stomach ulcer or digestive tract bleeding. Don???t use ibuprofen in childrenyounger than 6 months old. ??? Most skin wounds heal within 10 days. But an infection may occur even with treatment. So it???s important to watch the wound for signs of infection as listed below. ?? Follow-up care Follow up with your healthcare provider as advised. ?? When to get medical advice Call your healthcare provider right away if any of these occur: ??? Fever of 100.4??F (38??C) or higher, or as advised by your provider ??? Increasing pain, redness, swelling, or fluid leaking from the wound ??? Bleeding from the wound that doesn't stop after a few minutes of steady, firm pressure ??? Decreased ability to move any body part near the wound ?? Last Reviewed Date: 2021 ?? [id number] [employer]. All rights reserved. This information is not intended as a substitute for professional medical care. Always follow your healthcare professional's instructions. ?? * Paresh CERVANTES, Sushma House: PERFORM Event Display: Patient Education Leaflets Authored Date: [id number] Multiple Documents ?? [id number] Alcohol Intoxication Alcohol intoxication is very serious. [...] to families at www.al-anon.org . Or call 064-283-3612. ??? SM[employer] Recovery ( Self- Management and Recovery Training). A nationwide abstinence-oriented support group for people with addictive issues. This free program is focused on motivation to change, urge control, and living a balanced life. For more information and meetings near you, go to www.[place]ate[place].org/ ??? Substance Abuse and Mental Health Services Administration (SAMHSA) Treatment Senior Linux Systems Administrator. Free information on treatment resources in your area at https://findtreatment.gov/. Or call 453-685-1421. Call 627 Call 911 if any of these occur: [...] vomiting ?? Last Reviewed Date: 2021 ?? 2029-8602 [employer]. All rights reserved. This information is not intended as a substitute for professional medical care. Always follow your healthcare professional's instructions. ?? XR Foot - left GE 3 Views * [facility] , CIS S: TRANSCRIBE Perlita Tapia MD: VERIFY Event Display: Result: Authored Date: [id number] Foot Min 3 Views Left, 3 views Hx of Present Illness: ETOH cut great toe on yesy; Reason: Trauma; Clinical Question(s): Fracture COMPARISON: Left foot radiographs dated 04/02/2020. FINDINGS: Status post fusion of the first metatarsophalangeal joint with a dorsal plate and screw construct as well as an additional screw. Osseous fusion appears solid and the hardware appears intact. No acute displaced fracture or dislocation. No arthritic changes. There is soft tissue swelling on the dorsum of the foot and in the distal lower leg. IMPRESSION: Soft tissue swelling with no acute displaced fracture. WSN: [id number] Ordering Physician: Sushma Yoder Dictated By: Perlita Tapia MD Dictated Date/Time: 08/16/22 5:38 am Reviewed By: Perlita Tapia MD Signed By: Perlita Tapia MD Signed Date/Time: 08/16/22 5:38 am Transcribed By: CSB Transcribed Date/Time: 08/16/22 5:36 am Patient Care team information Care Team Personnel Name: Alexandra Colmenares RN Position: [facility] ED RN W/OE and Tasks Member Role: Primary Care Nurse Name: Garima Manzano RN Position: [facility] RN Member Role: Primary Care Nurse Name: Malgorzata Marinelli RN Position: [facility] RN Member Role: Primary Care Nurse Name: Joyce Roach RN Position: [facility] RN Member Role: Primary Care Nurse Name: Mary Suazo RN Position: [facility] RN Member Role: Primary Care Nurse Name: Danyel Davis RN Position: [facility] RN Member Role: Primary Care Nurse Name: Andres Pressley RN Position: [facility] RN Member Role: Primary Care Nurse Name: Jany Baig DO Position: [facility] Primary Care Physician Member Role: PCP Address: Address: [address] [place] [address] [facility] [place] [address]- Name: Neida Ballard RN Position: [facility] RN Member Role: Primary Care Nurse Name: Kaye Payne RN Position: [facility] RN Member Role: Primary Care Nurse Name: Garima Hutchinson Position: [facility] RN Member Role: Primary Care Nurse Name: Malgorzata Austin Position: [facility] RN Member Role: Primary Care Nurse Name: Torrie Hernandez RN Position: [facility] OB RN Member Role: Primary Care Nurse Name: Gretchen Knutson RN Position: [facility] SN RN Member Role: Primary Care Nurse Name: Aislinn Mckee RN Position: [facility] RN Member Role: Primary Care Nurse Name: Ashley Mcelroy Position: [facility] RN Member Role: Primary Care Nurse Name: Cody Garcia Position: [facility] Associate Professional Member Role: Lifetime Consulting Provider Address: Address: [address] [place] [address]- Name: Ge Covarrubias RN Position: [facility] RN Member Role: Primary Care Nurse Name: Orin Elmore RN Position: [facility] ED RN W/OE and Tasks Member Role: Primary Care Nurse Name: Allegra Liu RN Position: [facility] PCO RN Member Role: Primary Care Nurse Name: Shayan Pandya MD Position: [facility] Renal MD Member Role: Lifetime Consulting Physician Address: Address: [address] [place] [address] [address] [facility] [place], [place] [address]- Name: Darlene Rodrigez RN Position: [facility] RN Member Role: Primary Care Nurse Name: Kwan Mills RN Position: [facility] RN Member Role: Primary Care Nurse Name: Dolores Can RN Position: [facility] RN Member Role: Primary Care Nurse Name: Kim Rendon RN Position: [facility] RN Member Role: Primary Care Nurse Name: Monica Rowell RN Position: [facility] RN Member Role: Primary Care Nurse Name: Sushma Champagne Position: [facility] Associate Professional Member Role: ED Physician Solvent Mixer Address: Address: [address] [place] [address] Name: Stuart Obregon RN Position: [facility] ED RN W/OE and Tasks Member Role: Patient Care Provider Name: Jem Roberson MD Position: [facility] Resident Member Role: Admitting Physician Address: Address: [address] [place] [address] Name: Hieu Rosa Position: [facility] ED TA [facility] Member Role: Tower Hoist Operator Care Team Related Persons Name: MARLEN CABEZAS Address: home [address] [place] [address] Name: MARLEN CABEZAS Address: home [address] [place] [id number] Name: NICK CABEZAS Name: GEMA CABEZAS Address: home [address] [place] [address]
--- OUTSIDE RECORDS SUMMARY | 2023-12-15 20:56 | XMS_ITS | Continuity of Care Document ---
Author Organization [facility] Adult Address [address] [place] [address]- Care Team Providers Care Nuclear Physician Name Role Phone Jany Baig DO Primary Care Physician ( [phone] Encounter [facility] Date(s): 03/18/23 - 04/18/23 [facility] Adult [address] [place] [address]- Attending Physician: Malgorzata Chew Allergies, Adverse Reactions, Alerts Substance Reaction Severity [...] Nikhil rded influenza virus vaccine, inactivated 03/01/20 Inkhil rded influenza virus vaccine, inactivated 05/01/19 Nikhil [...] [facility]: 31492-726-22 2Result Comment: [04/29/2017] [id number] 3Admin Note: FLUARIX 4Admin Note: 3 RDINJ 5Admin Note: #2 Medications acamprosate 333 mg oral delayed release tablet 1 tablet = 333 mg, By Mouth, 3 times a day, # 42 tablet, 4 Refills, Maintenance, 11/05/22 11:31:00 EDT, EC Tablet, [facility], Partial fill upon patient request if the prescription is for a schedule II opioid drug., 175, cm, 11/05/22 10:21:00... Start Date: 11/05/22 Stop Date: 01/14/23 Status: Ordered amLODIPine 5 mg oral tablet 1 tablet, By Mouth, Daily, ^1R1., # 30 tablet, 5 Refills, Maintenance, 12/22/22 7:20:00 EDT, [facility], 175, cm, 12/03/22 11:50:00 EDT, Height, 88.9, kg, 10/21/22 20:41:00 EDT, Dry Weight Start Date: 12/22/22 Status: Ordered baclofen 10 mg oral tablet See Instructions, TAKE ONE TABLET BY MOUTH THREE TIMES A DAY ^1R1,1R2,1R4, # 90 tablet, Refills 5, Tot. Refills 5, Maintenance, 01/14/23 17:55:00 EDT, Instructions Replace Required Details, [facility]ically, [facility], 175, cm... Start Date: 01/14/23 Status: [...] capsule, 6 Refills, Maintenance, 12/03/22 12:13:00 EDT, [facility], 175, cm, 12/03/22 11:50:00 EDT, Height, [...] Gm, 12 Refills, Maintenance, 03/24/23 10:52:00 EDT, [facility], 28, APPLY TOPICALLY TO AFFECTED [...] 12:01:00 EST, 03/22/23 12:01:00 EDT, Tablet, [facility]/pharmacy #[id number], [...] Refills, Maintenance, 08/07/22 12:12:00 EST, [facility]/pharmacy #[id number], 30, USE 1 SPRAY(S) INTO EACH NOSTRIL TWICE A DAY, 176, cm,08/07/22 11:37:00 EST, Height, 79.8, kg, 07/31/22 2... Start Date: 08/07/22 Status: Ordered folic acid 1 mg oral tablet 1, tablet, By Mouth, Daily, ^1R1., # 30 tablet, Refills 5, Maintenance, 03/20/23 16:22:00 EDT, Route to Pharmacy Electronically, [facility], 175, cm, 03/20/23 15:31:00 EDT, Height, 77.5, kg, 03/20/23 11:30:00 EDT, Dry Weight Start Date: 03/20/23 Status: Ordered furosemide 20 mg oral tablet 20 mg, 1, tablet, By Mouth, Every other day, # 30 tablet, Refills 3, Tot. Refills 3, Maintenance, 01/28/23 12:31:00 EDT, [facility] Pharm[facility]ically, [facility], Partial fill upon patient request if the prescription is for a schedule II o... Start Date: 01/28/23 Status: Ordered gabapentin 300 mg oral capsule 300 mg, 1, capsule, By Mouth, Daily at bedtime, note dose/frequency change, # 90 capsule, Refills 4, Tot. Refills 4, Maintenance, 11/05/22 11:05:00 EDT, Route to Pharmacy Electronically, [facility], 175, cm, 11/05/22 10:21:00 EDT, Height, 88.9... Start Date: 11/05/22 Stop Date: 01/29/24 Status: Ordered hydrOXYzine hydrochloride 10 mg oral tablet 2 tablet, By Mouth, 2 times a day, PRN NEEDED FOR ANXIETY (VIAL), # 30 tablet, 3 Refills, Maintenance, 04/16/23 16:41:00 EDT, [facility], 175, cm, 03/22/23 6:50:00 EDT, Height, 77.5, kg, 03/20/23 11:30:00 EDT, Dry Weight Start Date: 04/16/23 Status: Ordered lactulose 10 gm/15 ml oral syrup 15 mL, By Mouth, 2 times a day, # 120 mL, 6 Refills, Maintenance, 02/26/23 10:11:00 EDT, [facility], 4, TAKE 15ML BY MOUTH TWO TIMES A DAY, 175, cm, 12/03/22 11:50:00 EDT, Height, 84, kg, 02/12/23 11:30:00 EDT, Dry Weight Start Date: 02/26/23 Status: Ordered magnesium oxide 400 mg oral tablet See Instructions, TAKE 1 TABLET BY MOUTH TWICE A DAY^1R1,1R4, # 60 tablet, 11 Refills, Maintenance,01/28/23 12:31:00 EDT, [facility], 175, cm, 12/03/22 11:50:00 EDT, Height, 88.9, kg, 10/21/22 20:41:00 EDT, Dry Weight Start Date: 01/28/23 Status: Ordered Melatonin 3 mg oral tablet 1 tablet, By Mouth, Daily at bedtime, PRN NEEDED FOR INSOMNIA (PACKAGE IN TRAY)^1R4, # 60 tablet, 5 Refills, Maintenance, 04/16/23 16:41:00 EDT, [facility], 60, TAKE 1 TABLET BY [...] 02/26/23 10:11:00 EDT, Route to Pharmacy Electronically, [facility], 175, cm, 12/03/22 [...] 12:02:00 EST, 03/22/23 12:02:00 EDT, Capsule, [facility]/pharmacy #[id number], Partial fill upon patient request if the prescription is for a schedule II opioid drug., 175, c... Start Date: 03/22/23 Stop Date: 05/03/23 Status: Ordered spironolactone 25 mg oral tablet 1, tablet, By Mouth, Daily, ^1R2., # 30 tablet, Refills 5, Tot. Refills 5, Maintenance, 04/14/23 12:41:00 EDT, Route to Pharmacy Electronically, [facility], 175, cm, 03/22/23 6:50:00 EDT, Height, 77.5, kg, 03/20/23 11:30:00 EDT, Dry Weight Start Date: 04/14/23 Status: Ordered Tab-A-Jesse oral tablet 1 tablet, By Mouth, Daily, # 90 tablet, 1 Refills, 12/01/22 12:59:00 EDT, [facility], 28, 1tablet By Mouth Daily, 175, cm, 11/13/22 10:42:00 EDT, Height, 88.9, kg, 10/21/22 20:41:00 EDT, DryWeight Start Date: 12/01/22 Status: Ordered traZODone 50 mg oral tablet 2, tablet, By Mouth, Daily at bedtime, ^2R4., # 60 tablet, Refills 5, Maintenance, 02/26/23 10:11:00 EDT, Route to Pharmacy Electronically, [facility], 175, cm, 12/03/22 11:50:00 [...] 02/09/23 23:18:00 EDT, Route to Pharmacy Electronically, [facility], 175, cm, 12/03/22 11:50:00 EDT, Height, 88.9, kg, 10/21/22 20:41:00 EDT, Dry Weight Start Date: 02/09/23 Status: Ordered Vitamin B6 50 mg oral tablet 1, tablet, By Mouth, Daily, R1., # 90 tablet, Refills 4, Maintenance, 11/16/22 13:39:00 EDT, Route to Pharmacy Electronically, [facility], 175, cm, 11/13/22 10:42:00 EDT, Height, [...] tablet, 3 Refills, Maintenance, 02/26/23 10:11:00 EDT, [facility], 175, cm, 12/03/22 11:50:00 EDT, Height, [...] Team Personnel Name: Alexandra Colmenares RN Position: [facility] [...] Primary Care Member Role: PCP Address: Address: [address] [place] [address] Adult & Pediatric Medicine [address] Name: Kaye Payne RN [facility] Care Nurse Name: Ashok Kevin RN Position: [facility] RN Member Role: Primary Care Nurse Name: Cody Garcia Position: [facility] Associate Professional Member Role: Lifetime Consulting Provider Address: Address: [address] [place] [address]- Name: Paige Nascimento RN Position: [facility] RN Member Role: Primary Care Nurse Name: Ge Covarrubias RN [facility]: [facility] [...] Role: Lifetime Consulting Physician Address: Address: [address] [place] [address] [address] [facility], [place] [address]- Name: Darlene Rodrigez RN Position: [facility] RN Member Role: Primary Care Nurse Name: Dolores Can RN Position: [facility] RN Member Role: Primary Care Nurse Name: Ingrid Verdugo RN Position: [facility] RN Member Role: Primary Care Nurse Name: Monica Rowell RN Position: [facility] RN Member Role: Primary Care Nurse Name: Jimi Fitzpatrick RN Position: [facility] RN Member Role: Primary Care Nurse Care Team Related Persons Name: MARLEN CABEZAS Address: home [address] [place] [id number] Name: MARLEN CABEZAS Address: home [address] [place] [address] Name: NICK CABEZAS Name: DUCBRIANWUMOSESGEMA Address: home [address] [place] [address]
--- OUTSIDE RECORDS SUMMARY | 2023-12-15 20:56 | XMS_ITS | Continuity of Care Document ---
Author Organization [facility] ter Address [address] [place] [address]- Care Team Providers Care Out Of School Hours Care Worker Name Role Phone Susana Bill MD Primary Care Physician [phone] [place] [facility] 12/11/23 - 12/12/[address] [address]- Encounter Diagnosis Alcohol intoxication(Final) - 12/11/23 Discharge Disposition: A-Transfer SNF Attending Physician: Livier Falk DO Admitting Physician: [...] (oldterm) 08/02/12 Give n 1Result Comment: [facility]: [id number] 2Result Comment: [04/29/2017] [id number] 3Admin Note: FLUARIX 4Admin Note: 3 RDINJ 5Admin Note: #2 Medications acamprosate 333 mg oral delayed release tablet 2 tablet = 666 mg, By Mouth, 3 times a day, # 180 tablet, 1 Refills, Maintenance, 07/28/23 11:04:00EST, EC Tablet, [facility], Partial fill upon patient request if [...] 07/28/23 11:10:00 EST, Route to Pharmacy Electronically, [facility], Partial fill upon patient request if [...] 07/28/23 12:08:00 EST, Route to Pharmacy Electronically, [facility], 175, cm, 07/28/23 9:11:00 EST, Height, 61.3, kg, 07/12/23 23:27:00 EST, Dry Weight Start Date: 07/28/23 Status: Ordered furosemide 20 mg oral tablet 20 mg, 1, tablet, By Mouth, Every other day, # 30 tablet, Refills 1, Tot. Refills 1, Maintenance, 07/28/23 12:08:00 EST, Route to Pharmacy Electronically, [facility], Partial fill upon patient request if the prescription is for a schedule II... Start Date: 07/28/23 Status: Ordered gabapentin 300 mg oral capsule 300 mg, 1, capsule, By Mouth, Daily at bedtime, note dose/frequency change, # 30 capsule, Refills 1, Tot. Refills 1, Maintenance, 07/28/23 12:09:00 EST, Route to Pharmacy Electronically, [facility], 175, cm, 07/28/23 9:11:00 EST, Height, [...] oral tablet 5 mg, Tablet, By Mouth, Once, STAT, 12/11/23 23:05:00 EDT, Stop date 12/11/23 23:05:00 EDT Start Date: 12/11/23 Stop Date: 12/11/23 Status: Completed pantoprazole 40 mg oral delayed release tablet [...] tablet, 5 Refills, Maintenance, 05/06/23 19:16:00 EST, [facility], 30, TAKE 1 TABLET BY [...] 07/28/23 12:12:00 EST, Route to Pharmacy Electronically, [facility], 175, cm, 07/28/23 9:11:00 EST, Height, 61.3, kg, 07/12/23 23:27:00 EST, Dry Weight Start Date: 07/28/23 Status: Ordered Vitamin B6 50 mg oral tablet 1, tablet, By Mouth, Daily, R1., # 90 tablet, Refills 4, Tot. Refills 4, Maintenance, 07/28/23 12:11:00 EST, Route to Pharmacy Electronically, [facility], 175, cm, 07/28/23 9:11:00 EST, Height, 61.3, kg, 07/12/23 23:27:00 EST, Dry Weight Start Date: 07/28/23 Status: Ordered Xifaxan 550 mg oral tablet See Instructions, 1 tablet By Mouth 2 times a day, # 60 each, 5 Refills, Maintenance, 09/30/23 19:11:00 EDT, [facility], 175, cm, 09/24/23 11:09:00 EDT, Height, [...] Exam Date Time Procedure Performing Provider Status 12/11/23 11:[address] Cervical Spine W/O Contrast Samantha Caba; Auth (Verified) Notes: (CT Cervical Spine W/O Contrast) Reason For Exam: Neck trauma, dangerous injury mechanism;Other: RESULT: CT Cervical Spine W/O Contrast CT Head/Brain W/O Contrast, CT Cervical Spine W/O Contrast INDICATION: Hx of Present Illness: + ETOH, pt snuck out and had 3 40oz, + nips, + beer, pt found onfloor dienes headstrike, no LOC. No injuries. Cooperative, ambulatory on scene. Pt denies ETOH use.; Reason: Trauma; Clinical Question(s): Hematoma; Order Comment: TECHNIQUE: Noncontrast head CT using axial technique was reconstructed in axial and coronal planes.Noncontrast spiral CT through the cervical spine was formatted in 3 planes. Automatic tube modulation was used for the cervical spine and iterative dose reconstruction was used for both the head and cervical spine to optimize scan parameters and image quality. COMPARISON: 10/15/2023 FINDINGS: Geophysical Engineer View Findings, Lines and Tubes: None. BRAIN [...] alignment. No locked or perched facet. Mild disc degenerative change with anterior osteophytes at C6/C7. OTHER BONES: No acute abnormality. Chronic left posterior second rib fracture. CERVICAL SOFT TISSUES AND LUNG APICES: Normal soft tissues. Visualized lung apices are clear. IMPRESSION: 1. No evidence of acute intracranial abnormality. 2. No evidence of acute fracture or dislocation of the cervical spine. WSN: [id number] Ordering Physician: Chelsy Lombardi Dictated By: Gerard Espinal MD Dictated Date/Time: 12/11/23 11:43 p Reviewed By: Gerard Espinal MD Signed By: Gerard Espinal MD Signed Date/Time: 12/11/23 11:43 pm Transcribed By: MIRNA Transcribed Date/Time: 12/11/23 11:40 pm * Exam Date Time Procedure Performing Provider Status 12/11/23 11:[address] Head/Brain W/O Contrast Samantha Serrato; Auth (Verified) Notes: (CT Head/Brain W/O Contrast) Reason For Exam: Trauma RESULT: CT Head/Brain W/O Contrast CT Head/Brain W/O Contrast, CT Cervical Spine W/O Contrast INDICATION: Hx of Present Illness: + ETOH, pt snuck out and had 3 40oz, + nips, + beer, pt found onfloor dienes headstrike, no LOC. No injuries. Cooperative, ambulatory on scene. Pt denies ETOH use.; Reason: Trauma; Clinical Question(s): Hematoma; Order Comment: TECHNIQUE: Noncontrast head CT using axial technique was reconstructed in axial and coronal planes.Noncontrast spiral CT through the cervical spine was formatted in 3 planes. Automatic tube modulation was used for the cervical spine and iterative dose reconstruction was used for both the head and cervical spine to optimize scan parameters and image quality. COMPARISON: 10/15/2023 FINDINGS: Geophysical Engineer View Findings, Lines and Tubes: None. BRAIN [...] alignment. No locked or perched facet. Mild disc degenerative change with anterior osteophytes at C6/C7. OTHER BONES: No acute abnormality. Chronic left posterior second rib fracture. CERVICAL SOFT TISSUES AND LUNG APICES: Normal soft tissues. Visualized lung apices are clear. IMPRESSION: 1. No evidence of acute intracranial abnormality. 2. No evidence of acute fracture or dislocation of the cervical spine. WSN: [id number] Ordering Physician: Chelsy Lombardi Dictated By: Gerard Espinal MD Dictated Date/Time: 12/11/23 11:43 p Reviewed By: Gerard Espinal MD Signed By: Gerard Espinal MD Signed Date/Time: 12/11/23 11:43 pm Transcribed By: MIRNA Transcribed Date/Time: 12/11/23 11:40 pm Vital Signs Most recent to oldest [Reference Range]: 1 2 3 Oxygen Saturation [94-100 %] 97 % (12/12/23 5:39 AM) 99 % (12/11/23 7:42 PM) Pulse Rate [55-90 bpm] 85 bpm (12/12/23 5:39 AM) 82 bpm (12/11/23 11:20 PM) 79 bpm (12/11/23 7:42 PM) Blood Pressure [90-138/55-84 mm Hg] 132/71mm Hg (12/12/23 5:39 AM) 112/69mm Hg (12/11/23 11:20 PM) 127/74mm Hg (12/11/23 7:42 PM) Respiratory Rate [16-30 br/min] 20 br/min (12/12/23 5:39 AM) 22 br/min (12/11/23 11:20 PM) 24 br/min (12/11/23 11:16 PM) Temperature [96.8-100.4 DegF] 98.0 DegF (12/11/23 7:42 PM) Mode of Delivery (Oxygen) Room air (12/12/23 5:39 AM) Room air (12/11/23 7:42 PM) Temperature Route Oral (12/11/23 7:42 PM) Social History Social History Type Response Smoking Status 10 or more cigarette s (1/2 pack or more)/day in last 30 days entered on: 02/04/19 Sex Male EKG study * Event Display: ECG 12-Lead Authored Date: Please click on pdf link to open report * Event Display: ECG 12-Lead Authored Date: Ventricular Rate: 78 BPM Atrial Rate: 78 BPM P-R Interval: 160 ms QRS Duration: 88 ms Q-T Interval: 416 ms QTC Calculation(Bazett): 474 ms P Blaine: 13 degrees R Blaine: 28 degrees T Blaine: 20 degrees Normal sinus rhythm Normal ECG When compared with ECG of 29-OCT-2023 11:03, No significant change was found Confirmed by LEE SOLARES MD ([id number]) on 12/12/2023 7:38:19 AM [place]: LEE SOLARES MD Note * Livier Falk DO: PERFORM, SIGN, VERIFY Event Display: Patient Education Handout Authored Date: [id number] * Livier Falk DO: PERFORM Event Display: Patient Education Leaflets Authored Date: [id number] Alcohol Abuse ?? [id number] Alcohol Abuse Alcoholic drinks harm you when [...] Duties at home or with early childhood educator aide suffer because of drinking. ??? Duties at [...] problems ??? Seizures These changes may be buttermaker helper (permanent). Heart and blood vessels Alcohol can [...] and Substance Abuse Information Center (NASAIC) at www.addictioncareRORE MEDIAions.com or 421-351-8150 ??? National [place] on Alcoholism and Drug Dependence (NCADD) at www.ncadd.org or 594-EWY-YMEA (499-546-5817) ?? Call 911 Call 911 if any [...] shakiness ?? Last Reviewed Date: 2021 ?? 1169-1852 [employer]. All rights reserved. This information is not intended as a substitute for professional medical care. Always follow your healthcare professional's instructions. ?? * Livier Falk DO: PERFORM Event Display: Patient Education Leaflets Authored Date: [id number] Alcohol Intoxication ?? [id number] Alcohol Intoxication Alcohol intoxication is very serious. [...] to families at www.al-anon.org . Or call 651-641-7202. ??? SMART Recovery ( Self- Management and Recovery Training). A nationwide abstinence-oriented support group for people with addictive issues. This free program is focused on motivation to change, urge control, and living a balanced life. For more information and meetings near you, go to www.[employer].org/ ??? Substance Abuse and Mental Health Services Administration ([facility]) Treatment Carbon Paper Coating Supervisor. Free information on treatment resources in your area at https://findtreatment.gov/. Or call 127-975-5290. Call 911 Call 911 if any of [...] vomiting ?? Last Reviewed Date: 2021 ?? 9151-8836 [employer]. All rights reserved. This information is not intended as a substitute for professional medical care. Always follow your healthcare professional's instructions. ?? Patient Care team information Care Team Personnel Name: Shira Galindo RN Position: [facility] RN Member Role: Primary Care Nurse Name: Estela Martinez RN Position: S RN Member Role: Primary Care Nurse Name: Alexandra Colmenares RN Position: [facility] [place] RN W/OE and Tasks Member Role: Primary Care Nurse Name: Garima Manzano RN Position: S RN Member Role: Primary Care Nurse Name: Malgorzata Marinelli RN Position: S RN Member Role: Primary Care Nurse Name: Joyce Roach RN Position: [facility] RN W/OE and Tasks Member Role: Primary Care Nurse Name: Lucina Peralta RN Position: [facility] RN Member Role: Primary Care Nurse Name: Jean Epstein RN Position: [facility] RN Member Role: Primary Care Nurse Name: Maria Esther Craig LPN Position: [facility] RN Member Role: Primary Care Nurse Name: Kyae Comer RN Position: [facility] RN Member Role: Primary Care Nurse Name: Kenyatta Kirby RN Position: [facility] RN Member Role: Primary Care Nurse Name: Andres Pressley RN Position: [facility] RN Member Role: Primary Care Nurse Name: Mary Haines RN Position: [facility] RN Member Role: Primary Care Nurse Name: Garima Curry RN Position: [facility] RN Member Role: Primary Care Nurse Name: Susana Bill MD Position: [facility] Physician - Primary Care Member Role: PCP Address: Address: [address] [place], [place] [address] [place] [address]- Name: Malgorzata Austin RN Position: [facility] RN Member Role: Primary Care Nurse Name: Ibeth Adams RN Position: [facility] RN Member Role: Primary Care Nurse Name: Torrie Hernandez RN Position: [facility] OB RN Member Role: Primary Care Nurse Name: Yoselin Jones RN Position: [facility] RN Member Role: Primary Care Nurse Name: Gretchen Knutson RN Position: [facility] SN RN Member Role: Primary Care Nurse Name: Aislinn Mckee RN Position: [facility] RN Member Role: Primary Care Nurse Name: Ashley Mcelroy RN Position: [facility] RN Member Role: Primary Care Nurse Name: Ashok Kevin RN Position: [facility] RN Member Role: Primary Care Nurse Name: Eben Villavicencio RN Position: [facility] RN Member Role: Primary Care Nurse Name: Cody Garcia Position: [facility] Associate Professional Member Role: Lifetime Consulting Provider Address: Address: [address] [place] [id number]- Name: Paige Nascimento RN Position: [facility] RN Member Role: Primary Care Nurse Name: Sue Combs RN Position: [facility] RN Member Role: Primary Care Nurse Name: Ge Covarrubias RN Position: [facility] RN Member Role: Primary Care Nurse Name: Orin Elmore RN Position: [facility] ED RN W/OE and Tasks Member Role: Primary Care Nurse Name: Noe LOUIE, Allegra Elliott Position: [facility] AMB Nurse Member Role: Primary Care Nurse Name: Shayan Pandya MD Position: [facility] Renal MD Member Role: Lifetime Consulting Physician Address: Address: [address] [facility] [address] [facility] [place] [address]- Name: Kimberley Pittman RN Position: [facility] RN Member Role: Primary Care Nurse Name: Darlene Rodrigez RN Position: [facility] RN Member Role: Primary Care Nurse Name: Alison Helton RN Position: [facility] RN Member Role: Primary Care Nurse Name: Dixie Duke RN Position: [facility] RN Member Role: Primary Care Nurse Name: Kwan Mills RN Position: [facility] ED RN W/OE and Tasks Member Role: Primary Care Nurse Name: Ingrid Verdugo RN Position: [facility] RN Member Role: Primary Care Nurse Name: Terra Fishman RN Position: [facility] RN Member Role: Primary Care Nurse Name: Monica Rowell RN Position: [facility] RN Member Role: Primary Care Nurse Name: Anita Hodges RN Position: [facility] RN Member Role: Primary Care Nurse Name: Jimi Fitzpatrick RN Position: [facility] RN Member Role: Primary Care Nurse Care Team Related Persons Name: MARLEN CABEZAS Address: [address] [place] [address] Name: DUCBRIANWU MARLEN Address: [address] [place] [address] Name: NICK CABEZAS Name: GEMA CABEZAS Address: [address] [place] [address] Name: ELTON CHENG Address: [address] [place] [address] Name: LAURO QUEVEDO
--- OUTSIDE RECORDS SUMMARY | 2023-12-15 20:56 | XMS_ITS | Continuity of Care Document ---
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 Name Role Phone Jany Baig DO Primary Care Physician ( [phone] Encounter [facility] Date(s): 07/27/23 - 08/26/23 [facility] [address] [place], [place] [address] Allergies, Adverse Reactions, Alerts Substance [...] Give n 1Result Comment: [facility]: 62190-442-36 2Result Comment: [04/29/2017] 18166-282-16 3Admin Note: FLUARIX 4Admin Note: 3 RDINJ 5Admin Note: #2 Medications acamprosate 333 mg oral delayed release tablet 2 tablet = 666 mg, By Mouth, 3 times a day, # 180 tablet, 1 Refills, Maintenance, 07/28/23 11:04:00EST, EC Tablet, [facility], Partial fill upon [...] tablet, 2 Refills, Maintenance, 07/28/23 11:06:00 EST, [facility], 175, cm, 07/28/23 9:11:00 EST, Height, 61.3, kg, 07/12/23 23:27:00 EST, Dry Weight Start Date: 07/28/23 Status: Ordered amLODIPine 5 mg oral tablet 1 tablet, By Mouth, Daily, ^1R1., # 30 tablet, 2 Refills, Maintenance, 06/02/23 8:00:00 EST, [facility], 175, cm, 03/22/23 6:50:00 [...] 07/28/23 11:10:00 EST, Route to Pharmacy Electronically, [facility], Partial fill upon patient request if [...] Gm, 12 Refills, Maintenance, 07/28/23 11:06:00 EST, [facility], 28, APPLY TOPICALLY TO AFFECTED AREA(S) [...] Gm, 1 Refills, Maintenance, 07/28/23 12:07:00 EST, [facility], 30, USE 1 SPRAY(S) INTO EACH [...] 07/28/23 12:09:00 EST, Route to Pharmacy Electronically, [facility], 175, cm, 07/28/23 9:11:00 EST, Height, [...] tablet, 3 Refills, Maintenance, 07/28/23 12:10:00 EST, [facility], 175, cm, 07/28/23 9:11:00 EST, Height, 61.3, kg,07/12/23 23:27:00 EST, Dry Weight Start Date: 07/28/23 Status: Ordered lactulose 10 gm/15 ml oral syrup 30 mL = 20 Gm, By Mouth, 3 times a day, for 30 days, # 2,700 mL, 2 Refills, Acute 10/26/23 12:13:00EDT, 07/28/23 12:13:00 EST, Syrup, [facility], Partial fill upon patient request if [...] 60 tablet, 11 Refills, Maintenance,07/28/23 12:09:00 EST, [facility], 175, cm, 07/28/23 9:11:00 EST, Height, [...] tablet, 5 Refills, Maintenance, 07/28/23 12:09:00 EST, [facility], 60, 1 tablet By Mouth Daily [...] 07/28/23 12:11:00 EST, Route to Pharmacy Electronically, [facility], 175, cm, 07/28/23 9:11:00EST, Height, 61.3, [...] 07/28/23 12:12:00 EST, Route to Pharmacy Electronically, [facility], 175, cm, 07/28/23 9:11:00 EST, Height, 61.3, kg, 07/12/23 23:27:00 EST, Dry Weight Start Date: 07/28/23 Status: Ordered spironolactone 25 mg oral tablet 1, tablet, By Mouth, Daily, ^1R2., # 30 tablet, Refills 5, Tot. Refills 5, Maintenance, 04/14/23 12:41:00 EDT, Route to Pharmacy Electronically, [facility], 175, cm, 03/22/23 6:50:00 EDT, Height, 77.5, kg, 03/20/23 11:30:00 EDT, Dry Weight Start Date: 04/14/23 Status: Ordered Tab-A-Jesse oral tablet 1 tablet, By Mouth, Daily, R1., # 30 tablet, 5 Refills, Maintenance, 05/06/23 19:16:00 EST, [facility], 30, TAKE 1 TABLET [...] 02/26/23 10:11:00 EDT, Route to Pharmacy Electronically, [facility], 175, cm, 12/03/22 11:50:00 EDT, Height,84, kg, 02/12/23 11:30:00 EDT, Dry Weight Start Date: 02/26/23 Status: Ordered traZODone 50 mg oral tablet 2, tablet, By Mouth, Daily at bedtime, ^2R4., # 60 tablet, Refills 5, Tot. Refills 5, Maintenance, 07/28/23 12:12:00 EST, Route to Pharmacy Electronically, [facility], 175, cm, 07/28/23 9:11:00 EST, Height, [...] 02/09/23 23:18:00 EDT, Route to Pharmacy Electronically, [facility], 175, cm, 12/03/22 11:50:00 EDT, Height, 88.9, kg, 10/21/22 20:41:00 EDT, Dry Weight Start Date: 02/09/23 Status: Ordered Vitamin B1 100 mg oral tablet 1, tablet, By Mouth, Daily, # 90 tablet, Refills 3, Tot. Refills 3, Maintenance, 07/28/23 12:12:00 EST, Route to Pharmacy Electronically, [facility], 175, cm, 07/28/23 9:11:00 EST, Height, 61.3, kg, 07/12/23 23:27:00 EST, Dry Weight Start Date: 07/28/23 Status: Ordered Vitamin B6 50 mg oral tablet 1, tablet, By Mouth, Daily, R1., # 90 tablet, Refills 4, Maintenance, 11/16/22 13:39:00 EDT, Route to Pharmacy Electronically, [facility], 175, cm, 11/13/22 10:42:00 EDT, Height, 88.9, kg, 10/21/22 20:41:00 EDT, Dry Weight Start Date: 11/16/22 Status: Ordered Vitamin B6 50 mg oral tablet 1, tablet, By Mouth, Daily, R1., # 90 tablet, Refills 4, Tot. Refills 4, Maintenance, 07/28/23 12:11:00 EST, Route to Pharmacy Electronically, [facility], 175, cm, 07/28/23 9:11:00 EST, Height, [...] each, 1 Refills, Maintenance, 07/28/23 14:33:00 EST, [facility], 175, cm, 07/28/23 9:11:00 EST, Height, [...] Care Nurse Name: Lucina Peralta RN Position: [facility] RN Member Role: Primary Care Nurse Name: Maria Esther Craig LPN Position: [facility] RN Member Role: Primary Care Nurse Name: Andres Pressley RN Position: [facility] ED RN W/OE and Tasks Member Role: Primary Care Nurse Name: Jany Baig DO Position: [facility] Physician - Primary Care Member Role: PCP Address: Address: [address] [place] [address] [facility] [place] [address]- Name: Kaye Payne RN Position: [facility] RN Member Role: Primary Care Nurse Name: Garima Curry RN Position: [facility] [...] Role: [employer]etime Consulting Provider Address: Address: [address] [place] [id number]- Name: Paige Nascimento RN [facility] [...] Role: Lifetime Consulting Physician Address: Address: [address] [facility], [place] [address]- Name: Kimberley Pittman RN Position: [facility] RN Member Role: Primary Care Nurse Name: Darlene Rodrigez RN Position: [facility] RN Member Role: Primary Care Nurse Name: Dixie Duke RN Position: [facility] [...] Persons Name: RAULITO MARLEN Address: [address] [place] [address] Name: MARLEN CABEZAS Address: [address] [place] [address] Name: NICK CABEZAS Name: GEMA CABEZAS Address: [address] [place] [address] Name: ELTON CHENG Address: home [address] [place] [id number]
--- OUTSIDE RECORDS SUMMARY | 2023-12-15 20:56 | XMS_ITS | Continuity of Care Document ---
Author Organization [facility] ter Address [address] [place] [id number]- Care Team Providers Care Technical Translator Name Role Phone Jany Baig DO Primary Care Physician ( [phone] Encounter [facility] Date(s): 05/31/22 - 06/09/22 [facility] [address] [place] [address] Discharge Disposition: Disch/Trans to IP Rehab or unit w/in Hos Attending Physician: Jimi Ohara MD Admitting Physician: Jimi Ohara MD Referring Physician: Not on Staff, Referring [...] Give n 1Result Comment: [facility]: [id number] 2Result Comment: [04/29/2017] [id number] 3Admin Note: FLUARIX 4Admin Note: 3 RDINJ 5Admin Note: #2 Medications acetaminophen 500 mg oral tablet 1 tablet, By Mouth, 4 times a day, PRN NEEDED FOR PAIN, MAX 4, PER DAY (VIAL., # 50 tablet, 11 Refills, Maintenance, 03/13/22 8:37:00 EDT, [facility], 175, cm, 01/06/22 10:34:00 EDT, Height, 78.3, kg, 12/26/21 19:05:00 EDT, Dry Weight Start Date: 03/13/22 Status: Ordered amLODIPine 5 mg oral tablet 5 mg, Tablet, By Mouth, 06/09/22 9:00:00 EST Start Date: 06/09/22 Stop Date: 06/09/22 Status: Completed amLODIPine 5 mg oral tablet See Instructions, TAKE 1 TABLET BY MOUTH ONCE A DAY^1R1, # 30 tablet, 5 Refills, Maintenance, 05/13/22 16:24:00 EST, [facility], 175, cm, 04/09/22 15:34:00 EDT, Height, 78.3, kg, 12/26/21 19:05:00 EDT, Dry Weight Start Date: 05/13/22 Status: Ordered Co Q-10 100 mg oral capsule 1 capsule, By Mouth, 4 times a day, # 120 capsule, 5 Refills, Maintenance, 04/09/22 15:55:00 EDT, [facility], 175, cm, 04/09/22 [...] Gm, 5 Refills, Maintenance, 02/18/22 10:02:00 EDT, [facility], 30, USE 1 SPRAY(S) INTO EACH NOSTRIL TWICE A DAY, 175, cm, 01/06/22 10:34:00 EDT, Height, 78.3, kg, 12/26/21 19... Start Date: 02/18/22 Status: Ordered folic acid 1 mg oral tablet 1 mg, 1, tablet, By Mouth, Daily, # 90 tablet, Refills 4, Tot. Refills 4, Maintenance, 10/27/21 10:40:00 EDT, Route to Pharmacy Electronically, [facility], Partial fill upon patient request if the prescription is for a schedule II opioid drug.... Start Date: 10/27/21 Stop Date: 01/20/23 Status: Ordered furosemide 20 mg oral tablet 1, tablet, By Mouth, Daily, note dose change, # 30 tablet, Refills 2, Tot. Refills 2, Maintenance, 04/09/22 15:53:00 EDT, Route to Pharmacy Electronically, [facility], 175, cm, 04/09/22 15:34:00 EDT, Height, 78.3, kg, 12/26/21 19:05:00 EDT, . Start Date: 04/09/22 Stop Date: 07/08/22 Status: Ordered gabapentin 300 mg oral capsule 300 mg, Capsule, By Mouth, 06/09/22 15:00:00 EST Start Date: 06/09/22 Stop Date: 06/09/22 Status: Completed gabapentin 300 mg oral capsule 300 mg, [...] 60 tablet, 11 Refills,Maintenance, 03/13/22 8:38:00 EDT, [facility], 175, cm, 01/06/22 10:34:00 EDT, Height, 78.3, kg, 12/26/21 19:05:00 EDT, Dry Weight Start Date: 03/13/22 Status: Ordered lactulose 10 gm/15 ml oral syrup See Instructions, TAKE 30ML BY MOUTH THREE TIMES DAILY NEEDED TO ACHEIVE 3-4 BOWL MOVEMENTS PER DAY, # 3,000 mL, 10 Refills, [facility], 30, TAKE 30ML BY MOUTH THREE TIMES DAILY NEEDED TO ACHEIVE 3-4 BOWL MOVEMENTS PER DAY, 174, cm, 02/12... Start Date: 07/02/21 Status: Ordered lidocaine 0.5% topical gel 1 application, Topically, 3 times a day, # 120 Gm, 0 Refills, Acute 12/30/22 17:23:00 EDT, 12/30/2216:23:00 EDT, Gel, [facility], Partial fill upon patient request if the prescription is fora schedule II opioid drug., 1 application Topically... Start Date: 12/30/21 Stop Date: 12/30/22 Status: Ordered Lidoderm 5% film 1 patch, Topically, Daily, remove patches after 12 hours NSAIDS contraindicated High dose tylenol contraindicated, # 30 patch, 5 Refills, Maintenance, 12/26/21 9:33:00 EDT, [facility], Partial fill upon patient request if the prescription i... Start Date: 12/26/21 Status: Ordered magnesium oxide 400 mg oral tablet 1 tablet, By Mouth, 2 times a day, # 60 tablet, 11 Refills, Maintenance, 03/13/22 8:37:00 EDT, [facility], 175, cm, 01/06/22 10:34:00 EDT, Height, 78.3, kg, 12/26/21 19:05:00 EDT, Dry Weight Start Date: 03/13/22 Status: Ordered Melatonin 3 mg oral tablet 1 tablet, By Mouth, Daily at bedtime, PRN NEEDED FOR INSOMNIA (PACKAGE IN TRAY), # 60 tablet, 5 Refills, Maintenance, 06/02/21 16:17:00 EST, [facility], 28, 1 tablet By Mouth Daily at bedtime,PRN: NEEDED FOR INSOMNIA (PACKAGE IN TRAY), 17... Start Date: 06/02/21 Status: Ordered MiraLax Powder 1 pack/packet = 17 Gm, By Mouth, 2 times a day, PRN Constipation, 0 Refills, Maintenance, 08/28/21 10:25:00 EDT, Powder, Partial fill upon patient request if the prescription is for a schedule II opioid drug. Start Date: 08/28/21 Status: Ordered oxyCODONE 5 mg oral tablet 10 mg, Tablet, By Mouth, Every 6 hours, PRN for Pain , Severe, Routine, 05/31/22 6:21:00 EST Start Date: 05/31/22 Stop Date: 06/14/22 Status: Ordered oxyCODONE 5 mg oral tablet 10 mg, 2, tablet, By Mouth, Every 6 hours, PRN, for 3 days, # 12 tablet, Refills 0, Tot. Refills 0,Acute 06/12/22 16:19:00 EST, Pain , Severe, 06/09/22 16:19:00 EST, [facility], Partial fill upon patient request if the prescription is for a sc... Start Date: 06/09/22 Stop Date: 06/12/22 Status: Ordered pantoprazole 40 mg [...] 04/09/22 16:00:00 EDT, Route to Pharmacy Electronically, [facility], Partial fill upon patient requestif the [...] 10/22/21 11:42:00 EDT, Route to Pharmacy Electronically, [facility], Partial fill upon [...] 0 Refills, Maintenance, 03/12/22 17:21:00 EDT, Tablet, [facility] [...] Replace Required Details, Route to Pharmacy Electronically, [facility], 175,cm, 01/06/22 10:34:00 EDT, Height, 78.3, kg, 12/26/... Start Date: 01/30/22 Status: Ordered traZODone 50 mg oral tablet See Instructions, TAKE 2-3 TABLETS BY MOUTH AT BEDTIME (ONE DOSE IN VIAL), # 90 tablet, Refills 5, Tot. Refills 5, Maintenance, 12/26/21 9:21:00 EDT, Instructions Replace Required Details, Route to Pharmacy Electronically, [facility], 170, cm,... Start Date: 12/26/21 Status: Ordered Vitamin B1 100 mg oral tablet 1, tablet, By Mouth, Daily, # 90 tablet, Refills 3, Maintenance, 03/13/22 8:37:00 EDT, Route to Pharmacy Electronically, [facility], 175, cm, 01/06/22 10:34:00 EDT, Height, 78.3, kg, 12/26/2218:05:00 EDT, Dry Weight Start Date: 03/13/22 Status: Ordered Xifaxan 550 mg oral tablet 1 tablet, By Mouth, 2 times a day, # 60 tablet, 1 Refills, Maintenance, 04/10/22 16:49:00 EDT, [facility], 175, cm, 04/09/22 15:34:00 EDT, Height, [...] 10normal echo November 2014 Results Radiology Reports (Most Recent Ten) * Exam Date Time Procedure Performing Provider Status 06/06/22 12:[address] Angio Abdomen and Pelvis Carola Braun (Verified) Notes: (CT Angio Abdomen and Pelvis) Reason For Exam: bleeding;Other: RESULT: CT Angio Abdomen and Pelvis CT Angio Abdomen and Pelvis INDICATION: Reason: bleeding COMPARISON: Multiple priors most recently 06/03/2022 TECHNIQUE: Axial images were obtained from diaphragm through the pelvis during the intravenous administration of iodinated contrast. 100 cc of Omnipaque 300 was administered intravenously. Delayed (venous) images were also acquired for evaluation of the portal veins. Sagittal and coronal maximum intensity projection (MIP) images were reconstructed and rendered in both arterial and venous phases. Weight-based protocol using automatic tube modulation was used to optimize exposure parameters. RADIATION DOSE PARAMETERS: CTDIvol Body: 14.05 mGy, DLP Body: 2081 mGy*cm. VASCULAR FINDINGS: Abdominal aorta: No aortic aneurysm or dissection. Celiac axis: Patent. Superior mesenteric artery: Patent. Right renal artery: Patent. Left renal artery: Patent. Inferior mesenteric artery: Patent. Right common iliac artery: Patent. Right internal iliac artery: Patent. Right external iliac artery: Patent. Right common femoral artery: Patent. Visualized right superficial and deep femoral arteries: Patent. Left common iliac artery: Patent. Left internal iliac artery: Patent. Left external iliac artery: Patent. Left common femoral artery: Patent. Visualized left superficial and deep femoral arteries: Patent. IVC and hepatic veins: Patent. Portal vein: Patent. Recanalized umbilical vein. Splenic vein: Patent. Embolization coils seen in the left upper quadrant. Inferior mesenteric vein: Patent. Iliac and femoral veins: Patent. NONVASCULAR FINDINGS: Visualized Chest: Small bilateral pleural effusions, left greater than right with mild associated atelectasis. The heart is normal in size. No pericardial effusion. Diaphragm: Normal. Liver: Cirrhotic morphology with no suspicious lesions seen. Status post TIPS procedure. Gallbladder: Distended and containing gallstones, but no surrounding inflammation Bile ducts: No biliary ductal dilation. Spleen: Nodular- appearing spleen. Splenomegaly. Pancreas: Normal. Adrenal glands: Normal. Kidneys and ureters: No hydronephrosis, stones, or suspicious masses. Simple appearing renal cysts are noted, requiring no dedicated follow up. Bladder: Underdistended and not well evaluated. Reproductive organs: Unremarkable. Stomach, small bowel, and large bowel: No evidence of obstruction or inflammation. Appendix: Normal. Peritoneum and retroperitoneum: Small amount of perihepatic and right paracolic gutter ascites. Small amount of ascites seen within a right inguinal hernia. Haziness of the mesentery in the midabdomen, unchanged from prior (image 82 series 501). Lymph nodes: No enlarged lymph nodes. Abdominal and pelvic wall: Right gluteal hematoma, not significantly changed in size, measures approximately. 6.7 x 3.9 cm. There is a smaller more superior hematoma, measuring 5 x 2.7 cm. Adjacent to this is a smaller hematoma measuring up to 2 cm. Smaller inferior hematoma measuring 3.5 x 3.1 cm,unchanged. Diffuse edema and stranding seen in the subcutaneous tissue. There is persistent enlargement of theright gluteal muscles. 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 Embolization coils seen in the area of the right superior gluteal artery. No evidence of active contrast extravasation. Streak artifact partially limits evaluation Small fat-containing umbilical hernia. Bilateral fat-containing inguinal hernias. Right inguinal hernia contains a small volume of ascites. Bones: Right intertrochanteric fracture status post ORIF. Multiple lower left rib fractures are redemonstrated. T9 and T10 left transverse process fractures are redemonstrated. IMPRESSION: No evidence of intraperitoneal bleeding. The large right gluteal hematoma measuring up to 6.7 cm, is grossly unchanged. No evidence of active contrast extravasation. New embolization coils are seen in the area of the right gluteal artery. Additional smaller hematomas are seen, slightly increased from prior measuring up to 5 cm. Again seen is a cirrhotic liver morphology with a tiny amount of ascites seen within the abdomen. Recanalized umbilical vein. Stable splenomegaly. Unchanged appearance of mesenteric haziness which may be related to cirrhosis. Stable appearance of multiple lower left rib fractures as well as left T9 and T10 transverse process fractures. I have personally reviewed the images and I agree with this report. WSN: [id number] Ordering Physician: Leigh Ann Hart Dictated By: Idania Roberto DO Dictated Date/Time: 06/06/22 2:05 pm Reviewed By: Nick Blanc MD Signed By: Nick Blanc MD Signed Date/Time: 06/06/22 2:10 pm Transcribed By: MIRNA Transcribed Date/Time: 06/06/22 1:30 pm * Exam Date Time Procedure Performing Provider Status 06/03/22 8:24 PM IR Angiogram Lower Extremity Right Modified Notes: (IR Angiogram Lower Extremity Right) Reason For Exam: Other: IR Angiogram Lower Extremity Right Patient: GEMA BASSETT Study Date: 06/03/2022 Performing: Nick Potter MD Referring: : 1975 Age: 47 Gender: MALE Pre-procedure diagnosis and Indication: right gluteal hematoma with active extravasation seen on CT. Active bleeding requiring transfusion. Exam: Prior to the procedure, the patient was seen and the nature of the procedure explained along with its attendant risks and benefits to a family member over the phone . Informed consent was obtained from, a family member over the phone . The patient underwent a pre-anesthesia assessment. On completion of this it was determined the patient is not a candidate for moderate sedation as he is not NPO. The patient arrived in IR room 1 for a pelvic angiogram PROCEDURE: The patient was positioned supine and secured with arm boards. The access site was evaluated, then prepped with chloraprep and draped in the usual sterile fashion. . Following administration of 1% lidocaine buffered with sodium bicarbonate for local anesthesia, a puncture was made into the right common femoral artery with a 21-gauge micropuncture needle under direct ultrasound guidance. The micropuncture needle was exchanged for a micropuncture sheath over a 0.018 guidewire. The inner dilator and guidewire were removed and a 0.035 guidewire was placed. The outer dilator was then exchanged for a 5 Vincentian vascular sheath. Contrast injected through the sheath demonstrated the puncture site to be above the bifurcation with flow down the leg. A digital subtraction Angiogram from the right external iliac artery was performed which demonstrates normal anatomy and no evidence of active extravasation. A 5 Vincentian SoS Omni 2 catheter Was then used to select the right internal iliac artery. Digital subtraction angiogram (DSA) was performed which demonstrates active extravasation off of a branch vessel of the right superior gluteal artery. A 2.8 Vincentian prograte microcatheter was then used to select the branch vessel leading to the active extravasation. After confirming position with contrast injection, embolization was performed with 1 cc of Gelfoam slurry followed by three 3 x 2 tornado coils. Post embolization DSA from the right superior gluteal artery as well as from the internal iliac artery demonstrate successful occlusion of the embolized vessel with no further evidence of active extravasation.. Satisfied with our result we elected to terminate the procedure. Contrast injected through the sheath demonstrated no evidence of arterial injury with good flow down the leg. The sheath was removed and hemostasis was achieved with a MynxGrip device and manual compression. A sterile compression was applied. The patient tolerated the procedure. The sterile field was maintained throughout the procedure and patient tolerated the procedure well with no complications of the procedure estimated blood loss was minimal Specimens/samples: no specimens or samples were sent for this procedure Post procedure instructions sent in envelope with the patient Impression: Angiogram demonstrating active extravasation from branch vessel of the right superior gluteal artery in concordance with findings on recent cross-sectional imaging. Selective embolization of the bleeding vessel performed utilizing Gelfoam and coils as above. Post intervention angiogram demonstrating successful occlusion of the embolized vessel with no further evidence of active extravasation. Fluoroscopy time and dose Total Fluoro Time: 9.4 mins Total dose 248 mGy Total DAP 5056.39 - ?Gy/m2 Contrast used Contrast used: Omnipaque_300 110 ml's Local Anesthetic Lidocaine 1% w/ 4.2% sodium bicarbonate 7 ml's SQ Agent Dose Route Time By Fentanyl 50 mcg IV 19:21:16 EJ Fentanyl 50 mcg IV 19:42:25 EJ Signed By Nick Potter MD On 06/03/2022 20:24:08 Nick Potter MD Dictated By: Nick Potter MD Dictated Date/Time: 06/03/22 7:15 pm Reviewed By: Nick Potter MD Signed By: Nick Potter MD Signed Date/Time: 06/03/22 8:24 pm Transcribed By: ARAVIND Transcribed Date/Time: 06/03/22 8:24 pm * Exam Date Time Procedure Performing Provider Status 06/03/22 7:15 PM IR End of Case Report Au th (Verified) IR End of Case Report * Exam Date Time Procedure Performing Provider Status 06/03/22 4:[address] Angio Abdomen Aor ta Bilat IliYen Whitehead; Auth (Verified) Notes: (CT Angio Abdomen Aorta Bilat IlioFem) Reason For Exam: ? active extrav from R glute;Trauma RESULT: CT Angio Abdomen Aorta Bilat IlioFem PROCEDURE: CT Angio Abdomen Aorta Bilat IlioFem INDICATION: Reason: Trauma; ? active extrav from R glute; Clinical Question(s): Other:; Order Comment: RELEVANT CLINICAL INFORMATION/CLINICAL QUESTION: Other: TECHNIQUE: CT angiography of the abdomen and lower extremities was performed using contiguous helical images from the diaphragm to the feet. 100 cc of Omnipaque 300 was administered intravenously. One mm axial images were reconstructed. Sagittal and coronal reformatted images were rendered. High resolution multiplanar, volume rendered and MIP images were created and used to evaluate the abdominal aorta and lower extremity arteries in multiple projections on an independent workstation, with permanent images saved to PACS. Automatic tube current modulation was used to optimize exposure parameters. RADIATION DOSE PARAMETERS: CTDIvol Body: 14.83 mGy, DLP Body: 1501 mGy*cm. COMPARISON: FINDINGS: CT angiogram of the abdomen and pelvis demonstrates normal caliber of the abdominal aortic aorta. No stenosis in the aorta or its major branches. No significant calcification. Three-vessel runoff noted in the lower leg. Popliteal artery as well as the superficial femoral artery, common femoral artery, iliac arteries appear all patent. There is a right gluteal hematoma. Evaluating the overall size and configuration, believe this is essentially unchanged from the previous examination from the same day. The discrete area noted in theright hip lateral to the right gluteus medius muscle measures 8.6 cm in maximal dimension compared to 7 cm on the previous examination. There is a small focus of high density on axial image 95 [id number] in the gluteus medius muscle as well as several small areas in the gluteus teresita area posterior to the hip fracture. Small area noted posterior to the intertrochanteric area on image 109 [id number] appears unchanged from previous exam 06/03/2022 image 196 series 201. The area questioned in the gluteus medius/teresita area on the previous exam does appear slightly higher density on the current exam, though has not increased in size and again I do not see an increase in size of the adjacent hematoma. The small foci of high density are suggestive of pseudoaneurysms given the generally similar appearance on the arterial and portal venous phases as well as the lack of change in the appearance of the hematoma. OTHER FINDINGS: Moveman View Findings, Lines and Tubes: None. Liver: Findings of cirrhosis. TIPS as previously noted. Gallbladder: Cholelithiasis without evidence of acute cholecystitis. Bile ducts: No intra or extra hepatic bile duct dilation. Spleen: Normal in size and attenuation. Pancreas: Unremarkable. Adrenal Glands: Unremarkable. Kidneys: No calculi or hydronephrosis. No suspicious masses. Bladder: Unremarkable. Stomach, small and large bowel: Unremarkable. Appendix: No evidence of acute appendicitis. Peritoneum, omentum and mesentery: No ascites or pneumoperitoneum. No omental or mesenteric lesions. Lymph nodes: None enlarged. Abdominal wall: See above regarding right gluteal hematoma. Reproductive organs: Unremarkable. Bones: Status post right hip intertrochanteric fracture with expected postoperative appearance status post fixation. IMPRESSION: Stable size of the right gluteal hematoma as well as stable enlargement of the gluteal muscles. I do not see findings to indicate new bleed compared to the previous examination 4 hours previous Several small foci of high density noted in the gluteus teresita/gluteus medius area. These could represent vessels or pseudoaneurysms given the lack of interval change from the previous examination 4hours earlier. Otherwise stable examination. Findings of cirrhosis. Status post fixation of right intertrochanteric fracture. WSN: [id number] Ordering Physician: January Peters Dictated By: Aleksandr Hodge MD Dictated Date/Time: 06/03/22 7:17 pm Reviewed By: Aleksandr Hodge MD Signed By: Aleksandr Hodge MD Signed Date/Time: 06/03/22 7:17 pm Transcribed By: MIRNA Transcribed Date/Time: 06/03/22 5:39 pm * Exam Date Time Procedure Performing Provider Status 06/03/22 12:[address] Abd/Pelvis W/ IV Contrast Only Katie Iglesias; Tanna (Verified) Notes: (CT Abd/Pelvis W/ IV Contrast Only) Reason For Exam: ? bleed, continues to require transfusions;Trauma RESULT: CT Abd/Pelvis W/ IV Contrast Only CT Chest W/ Contrast, CT Abd/Pelvis W/ IV Contrast Only INDICATION: Reason: acute anemia with fluid in the chest, assess not bleeding; trauma, question bleed, continues to require transfusions. TECHNIQUE: Helical CT scan of the chest, abdomen, and pelvis with IV contrast, formatted in 3 planes. 100 cc of Omnipaque 300 was administered intravenously. This study was performed without oral contrast. Weight-based protocol was performed using automatic exposure control. CTDIvol Body: 11.80 mGy, DLP Body: 874 mGy*cm. COMPARISON: CT chest 06/02/2022, CT chest, abdomen, and pelvis 05/31/2022. FINDINGS: Moveman view findings, lines and tubes: None. Trachea and airways: Mucus in trachea. Lungs and pleura: Partial atelectasis of the left lower lobe. Mild right basilar atelectasis. No pneumothorax. No significant change in size of a small to moderate simple appearing left pleural effusion. No active contrast extravasation into the pleural space. Mediastinum and daisy: No mass or hematoma. No mediastinal or hilar lymphadenopathy. No esophageal abnormality. Heart: Heart is normal in size. No pericardial effusion. Aorta: No aortic aneurysm. Pulmonary arteries: Normal caliber. No evidence of pulmonary embolism on this study performed without angiographic technique. Chest wall soft tissues: Edema in the anterior chest wall, left more than right associated with theleft clavicle fracture. No organized fluid collection or active contrast extravasation. Diaphragm: Intact. Liver: No acute abnormality. Cirrhosis. Status post TIPS. No evidence of hemorrhage. Gallbladder: Cholelithiasis. Distended gallbladder without significant surrounding fat stranding. Bile ducts: No biliary ductal dilation. Spleen: Mild splenomegaly. Pancreas: No suspicious lesion or ductal dilatation. Adrenal glands: No nodule. Kidneys and ureters: No hydronephrosis, stone, or suspicious lesion. Simple appearing renal cysts and hypodensities that are too small to characterize are noted, requiring no dedicated follow up. Bladder: No [...] No evidence of venous thrombosis. Embolization coils in the upper abdomen. Abdominal and pelvic wall soft tissues: New 7.1 x 4.2 cm high density fluid collection in the rightgluteal subcutaneous fat (series 201 image 169), with a small focus of gas which is likely postoperative. Subtle focus of increased attenuation in the right gluteal musculature (series 201 image 177), measuring approximately 8 mm. Extensive subcutaneous edema in the right more than left flank. Edema in the right thigh status post ORIF of the intertrochanteric fracture. Small bilateral fat-containing inguinal hernias. Bones: Mildly displaced left medial clavicle fracture as well as multiple left rib and left thoracic spine transverse process fractures again seen. Status post ORIF of the intertrochanteric right femur fracture in significantly improved alignment. IMPRESSION: 1. New right gluteal hematoma with a small focus of high attenuation that could represent active contrast extravasation or small pseudoaneurysm. No other evidence of active bleeding. This finding wasconveyed by Cortext by Dr. Espinal to Tyra Mark MD and January Peters NP on 06/03/2022 at 1:15PM . 2. Multiple fractures as previously described, with improved alignment of the right intertrochanteric fracture status post ORIF. 3. Unchanged size of simple appearing left pleural effusion without evidence of active hemorrhage. 4. Cirrhosis status post TIPS. 5. Cholelithiasis. WSN: [id number] Ordering Physician: Tyra Mark Dictated By: Gerard Espinal MD Dictated Date/Time: 06/03/22 1:17 pm Reviewed By: Gerard Espinal MD Signed By: Gerard Espinal MD Signed Date/Time: 06/03/22 1:17 pm Transcribed By: MIRNA Transcribed Date/Time: 06/03/22 1:00 pm * Exam Date Time Procedure Performing Provider Status 06/03/22 12:[address] Chest W/ Contrast Katie Iglesias; Tanna (Verified) Notes: (CT Chest W/ Contrast) Reason For Exam: acute anemia with fluid in the chest, assess not bleeding;Other: RESULT: CT Chest W/ Contrast CT Chest W/ Contrast, CT Abd/Pelvis W/ IV Contrast Only INDICATION: Reason: acute anemia with fluid in the chest, assess not bleeding; trauma, question bleed, continues to require transfusions. TECHNIQUE: Helical CT scan of the chest, abdomen, and pelvis with IV contrast, formatted in 3 planes. 100 cc of Omnipaque 300 was administered intravenously. This study was performed without oral contrast. Weight-based protocol was performed using automatic exposure control. CTDIvol Body: 11.80 mGy, DLP Body: 874 mGy*cm. COMPARISON: CT chest 06/02/2022, CT chest, abdomen, and pelvis 05/31/2022. FINDINGS: Moveman view findings, lines and tubes: None. Trachea and airways: Mucus in trachea. Lungs and pleura: Partial atelectasis of the left lower lobe. Mild right basilar atelectasis. No pneumothorax. No significant change in size of a small to moderate simple appearing left pleural effusion. No active contrast extravasation into the pleural space. Mediastinum and daisy: No mass or hematoma. No mediastinal or hilar lymphadenopathy. No esophageal abnormality. Heart: Heart is normal in size. No pericardial effusion. Aorta: No aortic aneurysm. Pulmonary arteries: Normal caliber. No evidence of pulmonary embolism on this study performed without angiographic technique. Chest wall soft tissues: Edema in the anterior chest wall, left more than right associated with theleft clavicle fracture. No organized fluid collection or active contrast extravasation. Diaphragm: Intact. Liver: No acute abnormality. Cirrhosis. Status post TIPS. No evidence of hemorrhage. Gallbladder: Cholelithiasis. Distended gallbladder without significant surrounding fat stranding. Bile ducts: No biliary ductal dilation. Spleen: Mild splenomegaly. Pancreas: No suspicious lesion or ductal dilatation. Adrenal glands: No nodule. Kidneys and ureters: No hydronephrosis, stone, or suspicious lesion. Simple appearing renal cysts and hypodensities that are too small to characterize are noted, requiring no dedicated follow up. Bladder: No [...] No evidence of venous thrombosis. Embolization coils in the upper abdomen. Abdominal and pelvic wall soft tissues: New 7.1 x 4.2 cm high density fluid collection in the rightgluteal subcutaneous fat (series 201 image 169), with a small focus of gas which is likely postoperative. Subtle focus of increased attenuation in the right gluteal musculature (series 201 image 177), measuring approximately 8 mm. Extensive subcutaneous edema in the right more than left flank. Edema in the right thigh status post ORIF of the intertrochanteric fracture. Small bilateral fat-containing inguinal hernias. Bones: Mildly displaced left medial clavicle fracture as well as multiple left rib and left thoracic spine transverse process fractures again seen. Status post ORIF of the intertrochanteric right femur fracture in significantly improved alignment. IMPRESSION: 1. New right gluteal hematoma with a small focus of high attenuation that could represent active contrast extravasation or small pseudoaneurysm. No other evidence of active bleeding. This finding wasconveyed by Cortext by Dr. Espinal to Tyra Mark MD and January Peters NP on 06/03/2022 at 1:15PM . 2. Multiple fractures as previously described, with improved alignment of the right intertrochanteric fracture status post ORIF. 3. Unchanged size of simple appearing left pleural effusion without evidence of active hemorrhage. 4. Cirrhosis status post TIPS. 5. Cholelithiasis. WSN: [id number] Ordering Physician: Tyra Mark Dictated By: Gerard Espinal MD Dictated Date/Time: 06/03/22 1:17 pm Reviewed By: Gerard Espinal MD Signed By: Gerard Espinal MD Signed Date/Time: 06/03/22 1:17 pm Transcribed By: MIRNA Transcribed Date/Time: 06/03/22 1:00 pm * Exam Date Time Procedure Performing Provider Status 06/03/22 6:23 AM Chest 2 Views Frontal and Lat Babs Hoffman i; Tanna (Verified) Notes: (Chest 2 Views Frontal and Lat) Reason For Exam: Other: RESULT: Chest 2 Views Frontal and Lat Chest 2 Views Frontal and Lat Reason: Other:; Clinical Question(s): Pleural Effusion COMPARISON: 06/02/2022 FINDINGS: LINES AND TUBES: None. LUNGS AND PLEURA: Layering left pleural effusion with area of consolidation or atelectasis within the left lower lobe. No pneumothorax. HEART, MEDIASTINUM AND DAISY: Heart is normal in size. Normal mediastinal and hilar contour. BONES AND SOFT TISSUES: No acute abnormality. IMPRESSION: Layering left pleural effusion with associated atelectasis or pneumonia. WSN: [id number] Ordering Physician: Tommy Ramos Dictated By: Nelson Vasques MD Dictated Date/Time: 06/03/22 9:05 am Reviewed By: Nelson Vasques MD Signed By: Nelson Vasques MD Signed Date/Time: 06/03/22 9:05 am Transcribed By: MIRNA Transcribed Date/Time: 06/03/22 9:04 am * Exam Date Time Procedure Performing Provider Status 06/02/22 12:[address] Chest W/ Contrast Aly Jules; Auth (Verified) Notes: (CT Chest W/ Contrast) Reason For Exam: ? worsening L pleural effusion;Trauma RESULT: CT Chest W/ Contrast CT Chest W/ Contrast INDICATION: Reason: Trauma; ? worsening L pleural effusion; Clinical Question(s): Other:; Order Comment: TECHNIQUE: Helical CT scan of the chest with IV contrast, formatted in 3 planes. 75 cc of [id number] was administered intravenously. Weight-based protocol was performed using automatic exposure control. CTDIvol Body: 6.50 mGy, DLP Body: 245 mGy*cm. COMPARISON: 05/31/2022. FINDINGS: Moveman view findings, lines and tubes: None. Trachea and airways: Patent without evidence of tracheal or endobronchial lesion. Lungs and pleura: Slightly increased tvkqb-fu-aawovptv fluid density left pleural effusion with fissural extension and increase in underlying atelectasis. No pneumothorax. Mediastinum and daisy: No mass or hematoma. No mediastinal or hilar lymphadenopathy. No esophageal abnormality. Normal thyroid. Heart: Heart is normal in size. No pericardial effusion. Moderate coronary artery calcification. Aorta: Mild vascular calcification but no aneurysm. Pulmonary arteries: Normal caliber. No evidence of pulmonary embolism on this study performed without angiographic technique. Chest wall soft tissues: Decrease in soft tissue swelling overlying the left sternocleidomastoid muscle and anterior to the manubrium and superior sternum. Gynecomastia. Diaphragm: Intact. Upper abdomen: The visualized adrenal glands appear unremarkable. Redemonstrated TIPS shunt, multiple surgical clips in the superior aspect of the mesenteric root, cirrhotic liver, and partially visualized distended gallbladder with multiple gallstones. Bones: Redemonstrated medial left clavicular mildly displaced comminuted fracture. Multiple rib fractures including the left posterior and lateral 1st through 10th ribs, and left transverse processes of T3 through T9. IMPRESSION: 1. Slight increase in size of left zhsij-yu-oemusyom fluid density pleural effusion with increase in underlying atelectasis. 2. Unchanged fractured left 1st through 10th ribs, left transverse processes of T3-T9, in the medial left clavicle. No new fractures. 3. Decreased soft tissue hematoma overlying the left sternocleidomastoid muscle and anterior to thesternum. 4. Chronic findings including cirrhosis, TIPS shunt, mesenteric root surgical clips and cholelithiasis without evidence of cholecystitis. I have personally reviewed the images and I agree with this report. WSN: [id number] Ordering Physician: January Peters Dictated By: Dominic Yung MD Dictated Date/Time: 06/02/22 1:48 pm Reviewed By: Estela Holt MD Signed By: Estela Holt MD Signed Date/Time: 06/02/22 1:53 pm Transcribed By: MIRNA Transcribed Date/Time: 06/02/22 1:43 pm * Exam Date Time Procedure Performing Provider Status 06/02/22 6:09 AM Chest 2 Views Frontal and Lat Babs Hoffman i; Auth (Verified) Notes: (Chest 2 Views Frontal and Lat) Reason For Exam: Follow-Up Pleural Effusion RESULT: Chest 2 Views Frontal and Lat Chest 2 Views Frontal and Lat Reason: Follow-Up Pleural Effusion; Clinical Question(s): Pleural Effusion COMPARISON: Multiple priors, most recently 06/01/2022. FINDINGS: LINES AND TUBES: None. LUNGS AND PLEURA: No significant change in moderate left pleural effusion and associated compressive atelectasis although evaluation is slightly limited by patient arm positioning. No right pleural effusion. No pneumothorax. HEART, MEDIASTINUM AND DAISY: Heart is normal in size. Normal mediastinal and hilar contour. BONES AND SOFT TISSUES: Unchanged widening of the left AC joint. Limited evaluation of known bilateral left-sided rib fractures. Partially visualized biliary stent and surgical material in the upper abdomen. IMPRESSION: Unchanged moderate left pleural effusion. I have personally reviewed the images and I agree with this report. WSN: [id number] Ordering Physician: January Peters Dictated By: Juan De Jesus DO Dictated Date/Time: 06/02/22 8:44 am Reviewed By: Perlita Tapia MD Signed By: Perlita Tapia MD Signed Date/Time: 06/02/22 8:49 am Transcribed By: MIRNA Transcribed Date/Time: 06/02/22 8:38 am * Exam Date Time Procedure Performing Provider Status 05/31/22 7:06 AM Chest Single Frontal View Augustine , Floyd white; Modified Notes: (Chest Single Frontal View) Reason For Exam: Rib fx RESULT: Chest Single Frontal View Chest Single Frontal View Reason: Rib fx; Clinical Question(s): Pneumothorax COMPARISON: CT chest dated 05/31/2022. FINDINGS: LINES AND TUBES: None. LUNGS AND PLEURA: Left basilar atelectasis. Normal pulmonary vascularity. There may be a small left effusion. No pneumothorax. HEART, MEDIASTINUM AND DAISY: Heart is normal in size. Normal mediastinal and hilar contour. BONES AND SOFT TISSUES: Left proximal clavicular fracture. Third-fifth left rib fractures are seen. Remaining known rib fractures are not well evaluated on this examination. IMPRESSION: 1. Multiple left rib and left proximal clavicular fracture. 2. 2. Left basilar atelectasis and possible small left effusion. I have personally reviewed the images and I agree with this report. WSN: [id number] Ordering Physician: Jia Rhoades Dictated By: Idania Roberto DO Dictated Date/Time: 06/01/22 10:22 a Reviewed By: Shine Zepeda MD Signed By: Shine Zepeda MD Signed Date/Time: 06/01/22 10:27 am Transcribed By: MIRNA Transcribed Date/Time: 06/01/22 10:04 am Vital Signs Most recent to oldest [Reference Range]: 1 2 3 4 Height 179 cm (06/08/22 7:37 AM) 179 cm (06/03/22 2:17 PM) 179 cm (06/03/22 10:27 AM) Weight 87.8 kg (06/02/22 2:00 AM) 84 kg (06/01/22 12:22 PM) Oxygen Saturation [94-100 %] 99 % (06/09/22 3:00 PM) 98 % (06/09/22 10:00 AM) 96 % (06/09/22 6:00 AM) Pulse Rate [55-90 bpm] 99 bpm *H* (06/09/22 10:00 AM) 98 bpm *H* (06/09/22 6:00 AM) 97 bpm *H* (06/09/22 2:55 AM) Body Mass Index [18.5-24.99 kg/m2] 26.22 kg/m2 *H* (06/01/22 12:22 PM) Blood Pressure [90-138/55-84 mm Hg] 138/82mm Hg (06/09/22 3:00 PM) 142/69mm Hg *H* (06/09/22 10:00 AM) 150/79mm Hg *H* (06/09/22 7:48 AM) Respiratory Rate [16-30 br/min] 18 br/min (06/09/22 4:00 PM) 19 br/min (06/09/22 3:00 PM) 16 br/min (06/09/22 2:48 PM) 19 br/min (06/09/22 2:48 PM) Temperature [96.8-100.4 DegF] 98.4 DegF (06/09/22 3:00 PM) 98.2 DegF (06/09/22 10:00 AM) 98.5 DegF (06/09/22 6:00 AM) Liters per Minute 2 L/min (06/01/22 2:00 PM) 2 L/min (06/01/22 12:00 PM) 2 L/min (06/01/22 11:15 AM) Mode of Delivery (Oxygen) Room air (06/09/22 3:00 PM) Room air (06/09/22 10:00 AM) Room air (06/09/22 6:00 AM) Blood pressure sites Arm, right (06/09/22 3:00 PM) Arm, right (06/09/22 10:00 AM) Leg, right (06/09/22 6:00 AM) Temperature Route Oral (06/09/22 3:00 PM) Oral (06/09/22 10:00 AM) Oral (06/09/22 6:00 AM) Dry Weight 84 kg (06/01/22 12:22 PM) Social History Social History Type Response Smoking Status 10 or more cigarette s (1/2 pack or more)/day in last 30 days entered on: 02/04/19 Sex History and physical note * Event Display: History and Physical Hospital Authored Date: * Jia Rhoades MD: MODIFY, PERFORM Event Display: History and Physical Hospital Authored Date: [id number] Patient: ??GEMA BASSETT ? Age:??47 Years?Sex:??Male?:??1975?? Chief Complaint back pain ?? Referring Physician: Thalia Montano Consulting Physician: Damaso Ohara Reason for Consultation: Mmultiple injuries after being found down in a parking lot??intoxicated History of Present Illness Gema Bassett is a 47-year-old man with a history of depression and??alcoholic cirrhosis and esophageal??varices??requiring TIPS procedure and prior paracentesis, who presented to [facility] after being found down in a parking lot.?? Per report, the patient??was drinking??yesterday afternoon. ??He was subsequently??found in a parking lot, confused??and was thus, brought to an outside ED for further evaluation.?? He, on the other hand, reports??that he??went drinking with his friends yesterday afternoon.?? He then became short of breath, so he sat down on some stairs. ??He reports that he then made his way home to his parents house, where he called his PCP??and complained of back pain. ??Hestates his PCP then sent him to the ED.?? He also mentioned??having back pain secondary to shoveling earlier in the day.?? In the ED,??he was found to have??a left proximal clavicle fracture,??and T3-9 transverse process fractures, so he was transferred to [facility] for further care. ??Here, he underwent??sheets scan,??which??revealed??displaced right intertrochanteric??fracture??with a??gluteal softtissue hematoma,??and??T3-T9 transverse process fractures adjacent to multiple left-sided rib fractures??(possible T10 as well) with a??small??hemopneumothorax.?? My evaluation,??the patient was slurring his speech??and was somewhat difficult to understand. ??He is primary complaint was??right??hippain??with??decreased range of motion.?? He also endorses back pain and left posterior chest??wall.??Pain Review of Systems A 10 point review of systems was negative except as documented in the HPI. Physical Exam Vitals & Measurements T:??98.1?F ?? OH:??101?? RR:??18?? BP:??154/78?? SpO2:??99%? General: no acute distress, sleepy but arousable, slurring his speech Head: normocephalic, atraumatic, no hematomas, no abrasions, no wounds, no deformities Face: no ecchymosis, no abrasions, no wounds Eyes: pupils are 3mm, equal, round, and reactive; extraocular movement intact but had difficulty focusing enough to follow my finger with his eyes Ears: no blood in external auditory canal, no abrasions, no bentley's sign Nose: no epistaxis, no deformity Mandible: no deformity, no malocclusion Neck: no hematoma, no ecchymosis, no wounds, trachea midline Chest: left clavicular swelling and tenderness, left back and left posterolateral chest wall tenderness to palpation Heart: regular rate and rhythm Lungs: clear to auscultation bilaterally Abdomen: soft, nondistended, nontender, no wounds, no ecchymosis, no hematoma Pelvis: stable, right hip tenderness to palpation Back: no ecchymosis, no abrasions, no hematoma, no wounds, left posterolateral chest wall tenderness to palpation Cervical spine: no midline deformities or stepoffs, no tenderness, cervical- collar in place Thoracic spine: no midline deformities or stepoffs, no tenderness Lumbar spine: no midline deformities or stepoffs, no tenderness Extremities: the right lower extremity is externally rotated and foreshortened, the right lateral hip is exquisitely tender to palpation with inability to tolerate ranging, otherwise no long bone deformities,??wounds, or abrasions and full active range of motion,??bilateral??knee/tate ecchymosis, no hematomas Neurologic: GCS13 (E3V4M6), decreased strength and limited examination of the right lower and left upper extremities due to fractures, but the right upper and left lower extremities have 5/5 strength, intact sensation throughout, cranial nerves II-XII are intact and symmetric Vascular: warm and perfused Assessment/Plan Gema Bassett is a 47-year-old man with a history of depression and??alcoholic cirrhosis and esophageal??varices??requiring TIPS procedure and prior paracentesis, who presented to [facility] after being found down in a parking lot.?? He was found to have the injuries listed below, so he will be adm itted to the trauma surgery service for further care. ?? Injuries Displaced right intertrochanteric femur fracture with??gluteal soft tissue hematoma T3-T9 transverse process fractures Possible T10 transverse process fracture Posterior??left-sided rib fractures??3-10 Small hemopneumothorax Bilateral??intraparenchymal hematomas Small??subdural??hematoma Small subarachnoid hematoma ?? Consultants Neurosurgery Orthopedic surgery ?? Plan Admit to trauma surgery (intercare) Rib fracture??protocol??(hold ibuprofen in the setting of ICH) Repeat a.m. chest x-ray CPT/DuoNebs/incentive spirometry Mobilization Neurosurgery consulted,??follow-up recommendations Orthopedic surgery consulted, appreciate recommendations ?N.p.o. for possible OR today ??? Nonweightbearing left upper extremity with a sling ??? Pain control as needed ??? Possible or today for the??right femur fracture ??? DVT prophylaxis??when able CIWA Daily labs Follow-up final imaging reads Home medications as appropriate Holding chemical??DVT prophylaxis pending neurosurgical??recommendations ?? [place] [phone] with any questions or concerns. ?? Discussed with attending surgeon, Dr. Ohara. Problem List/Past Medical History Ongoing AC joint [...] EGD: 03/14/15 EGD: 11/03/14 Laryngoscopy in 1988 Paracentesis Home Medications Acetaminophen: 1 tablet, By Mouth, 4 times a day, PRN ( NEEDED FOR PAIN, MAX 4), PER DAY (VIAL. Amlodipine: See Instructions, TAKE 1 TABLET BY MOUTH ONCE A DAY^1R1 Durable Medical Equipment: See Instructions, surgical, calf length 20-30 mm HgM79.89M79.606 Durable Medical Equipment (R aircast ankle-stirrup support brace): See Instructions, Dx: R inversion ankle [id number] Fluticasone Nasal: See Instructions, USE 1 SPRAY(S) INTO EACH NOSTRIL TWICE A DAY Folic Acid: 1 mg = 1 tablet, By Mouth, Daily Furosemide: 1 tablet, By Mouth, Daily, note dose change Gabapentin: 300 mg = 1 capsule, By Mouth, Daily at bedtime, note dose change HydrOXYzine: 1 TO 2 TABLETS, By Mouth, 3 times a day, PRN ( NEEDED FOR ANXIETY (VIAL)) Lactulose: See Instructions, TAKE 30ML BY MOUTH THREE TIMES DAILY NEEDED TO ACHEIVE 3-4 BOWL MOVEMENTS PER DAY Lidocaine Topical: 1 patch, Topically, Daily, remove patches after 12 hoursNSAIDS contraindicated High dose tylenol contraindicated Lidocaine Topical: 1 application, Topically, 3 times a day Magnesium Oxide: 1 tablet, By Mouth, 2 times a day Melatonin: 1 tablet, By Mouth, Daily at bedtime, PRN ( NEEDED FOR INSOMNIA (PACKAGE IN TRAY)) Multivitamin: 1 tablet, By Mouth, Daily Pantoprazole: See Instructions, TAKE 1 TABLET BY MOUTH ONCE A DAY^1R1 Paroxetine: 5 mg = 0.5 tablet, By Mouth, Daily Polyethylene Glycol 3350: 17 Gm = 1 pack/packet, By Mouth, 2 times a day, PRN (Constipation) Potassium Chloride: 2 tablet, By Mouth, Daily Pyridoxine: 50 mg = 1 tablet, By Mouth, Daily Rifaximin: 1 tablet, By Mouth, 2 times a day Sildenafil: 50 mg = 1 tablet, By Mouth, Daily, 1 hour before sexual activity Thiamine: 1 tablet, By Mouth, Daily Trazodone: See Instructions, TAKE 2-3 TABLETS BY MOUTH AT BEDTIME (ONE DOSE IN VIAL) Trazodone: See Instructions, TAKE 1 TO 2 TABLETS BY MOUTH AT BEDTIME (ONE DOSE IN VIAL) Ubiquinone: 1 capsule, By Mouth, 4 times a day Allergies NSAIDs Tylenol??(Cirrhosis) aspirin??(Hx GI Bleed) ibuprofen??(Hx of GI Bleed) Social History Alcohol Use: Past. Frequency: Several times per day. Other: 18 beers per day. Previous treatment: Inpatient., 04/17/2016 Employment/School Status: Unemployed. 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 Event Name?? Event Result?? Date/Time?? WBC 7.6 k/mm3 05/30/22 21:00:00 RBC 3.88 m/mm3??Low 05/30/22 21:00:00 Hgb 11.6 Gm/dL??Low 05/30/22 21:00:00 Hct 35.5 %??Low 05/30/22 21:00:00 MCV 91.5 femtoliters 05/30/22 21:00:00 MCH 29.9 pg 05/30/22 21:00:00 MCHC 32.7 g/dL??Low 05/30/22 21:00:00 Platelet Count 96 k/mm3??Low 05/30/22 21:00:00 MPV 12.3 femtoliters 05/30/22 21:00:00 Nucleated RBC (Automated) 0 #/100 WBC'S 05/30/22 21:00:00 ? CHEM GENERAL ? Event Name?? Event Result?? Date/Time?? Sodium 144 mmol/L 05/30/22 21:00:00 Chloride 110 mmol/L??High 05/30/22 21:00:00 Bicarbonate Level 20 mmol/L??Low 05/30/22 21:00:00 Anion Gap 14 05/30/22 21:00:00 Glucose Level 132 mg/dL??High 05/30/22 21:00:00 BUN 10 mg/dL 05/30/22 21:00:00 Creatinine-Blood 1 mg/dL 05/30/22 21:00:00 Magnesium 2 mg/dL 05/30/22 21:00:00 Alkaline Phosphatase 147 units/L??High 05/30/22 21:00:00 AST (SGOT) 108 units/L??High 05/30/22 21:00:00 ALT (SGPT) 44 units/L??High 05/30/22 21:00:00 Bilirubin, Total 1.2 mg/dL 05/30/22 21:00:00 Bilirubin, Direct 0.4 mg/dL??High 05/30/22 21:00:00 Bilirubin, Indirect 0.8 mg/dL??High 05/30/22 21:00:00 ? * Jimi Ohara MD: PERFORM Event Display: History and Physical Hospital Authored Date: I have seen and examined the patient, the above note summarizes my encounter on the recorded date Note * Garima Hutchinson: PERFORM Event Display: Discharge/Transfer Note Hospital Authored Date: [id number] Nursing Discharge Note Entered On: 06/09/2022 19:37 EST Performed On: 06/09/2022 19:36 EST by Garima Hutchinson Nursing Discharge Note 2 Discharge Time : 06/09/2022 19:36 EST Discharge Level of Care at Discharge : intermediate facility Discharge Nursing Homes/Rehab Facilities : [facility] Patient Left Unit Via : Ambulance Patient Accompanied Off Unit with : Ambulance/Chair Van Personnel Handover Given to Transport Personnel : Yes DC Instructions Provided & Signed by Pt : No Patient Understands D/C Instructions : Yes Patient Instructions Discharge Signed : No Instructions for Discharge Comments : being d/c to facility Discharge Comments : d/c instructions given to [facility], IV removed cath tip intact, all belongings accounted for Did Pt have Specialty Bed or Wound Vac : No Garima Hutchinson - 06/09/2022 19:36 EST * Shira Dickerson: PERFORM, SIGN, VERIFY Event Display: Case Management Discharge Plan Authored Date: [id number] Patient: GEMA BASSETT Age: 47 years Sex: Male : 1975 Associated Diagnoses: None Author: Shira Dickerson Discharge Plan Case Management Discharge Plan : Case Management Discharge Plan Data 06/09/2022 13:51 EST Discharge Level of Care at Discharge intermediate facility Discharge Nursing Homes/Rehab Facilities [facility] Discharge Transportation Arranged [facility] [address] [facility] Discharge Arranged Transport Date/Time 06/09/2022 16:00 Mode of Transportation Arranged [facility] #1 intake Service Categories #1 Occupational Therapy, Physical Therapy, [facility] Start Date and Time #1 06/09/2022 16:00 Service Comments #1 you are being discharged to [facility] where you will receive further sn, pt , and ot needs. Name of Person Notified of Transfer gema bassett * Garima Hutchinson: PERFORM Event Display: Patient Education/Instruction Authored Date: [id number] Inpatient Adult Discharge Instructions [address] [address] Name: GEMA BASSETT : 1975 Visit: 05/31/2022 05:45:00 Current Date: 06/09/2022 15:54 Account: [id number] Inpatient Adult Discharge Instructions We would like [...] and their families. Surveys are administered by [employer] ?? If further treatment with your primary care physician or another doctor is recommended, it is important for you to keep the appointment. Call your primary care physician or return to the Emergency Department immediately if your condition worsens, fails to improve, or new symptoms develop. If you need to find a doctor, you can call [facility] for a referral at [phone] or toll free at [phone] or log in to [email or web address].. ?? You can view and manage your care through the patient portal or by using a health care sydnie of your choosing. [employer] is a website that allows you to securely view your medical information including your hospital discharge summary, office visit summaries, medications and follow-up visits. You can also request appointments, renew medications, and request access to your medical information using a health care sydnie of your choosing, or just ask a question. You can enroll at [email or web address] or register during your next office visit. You have been discharged from [facility], Patient Care Unit: SW5. If you have any questions regarding these instructions after you leave, please call us and we will be happy to assist you. [facility] Your Care Team Attending Physician Mayda LEE, Edlisa Consulting Providers Mary LEE, Tobias Richardson MD, Rob Wilburn Discharging Providers Roger LEE, Jaqueline Beyer Reason for Admission back pain Your Diagnosis Rib fractures Intracranial hemorrhage Tests Performed Below is a partial list of the tests performed during your hospitalization. You may have had other tests and procedures not included in this list. Please discuss all test results with your provider. Alcohol Level Ammonia Venous Basic Metabolic Panel BUN CBC CBC w/ Differential COVID-19 (2019 Novel Coronavirus) PCR COVID-19 (Novel Coronavirus), Rapid PCR Creatinine Electrolytes GLUCOSE POC H + H Hepatic Function Panel HOLD BLUE TUBE HOLD GREEN TUBE INR Ionized Calcium LFT's Lytes Magnesium Level Phosphorus Level Type and Screen Chest CT W/ Contrast CT Abd/Pelvis W/ IV Contrast Only CT Angio Abdomen and Pelvis CT Angio Abdomen Aorta Bilat IlioFem CT Cervical Spine W/O Contrast CT Chest W/ Contrast CT Head/Brain W/O Contrast CT Lumbar Spine W/O Contrast CT Thoracic Spine W/O Contrast CXR W/ Frontal and Lat IR Generic Order IR US Images?-- Results Pending -- XR C-Arm > 1 Hour XR Chest 2 Views Frontal and Lat XR Chest Single Frontal View XR Clavicle Complete Left XR Femur 2 Views Right XR Hip Comp 2 Views Right XR Hip w/Pelvis 2-3 View Right ? You will be contacted within 72 hours with your results. Primary Care Provider Jany Baig DO Advance Directive Health Care Proxy on File Yes - Health Care Proxy No qualifying data available. Discharge Vitals Temperature: 98.2 DegF Height: 179 cm Pulse Rate:??99 bpm??High Weight: 87.8 kg Respiratory Rate: 19 br/min Body Mass Index:??26.22 kg/m2??High Respiratory Rate: 16 br/min Body surface area: 2.04 Systolic Blood Pressure:??142 mm Hg??High ?? Diastolic Blood Pressure: 69 mm Hg ?? Oxygen Saturation: 98 % ?? Studies Pending All tests and labs ordered during this hospital stay have been completed unless listed below. Please discuss all pending results with your provider listed above in these instructions. ?? Add On Lab Order Basic Metabolic Panel CBC w/ Differential Hepatic Function Panel INR IR US Images Magnesium Level Phosphorus Level Transfuse RBCs What to do next Instructions From Your Doctor Discharge Orders Scheduled Follow-Up Appointments Wednesday 2:40 PM EST ?? With: Francheska LEE, Steven Marinelli Where: [facility] [address] [place] [address]- Wednesday 11:20 AM EST ?? With: Jany Baig DO Where: [facility] [address] [place] [address]- You Need to Schedule the Following Appointments Follow Up with??Mary LEE, Tobias Jorgensen When??Within 1 week: call to discuss follow up visit Why: Please call to schedule follow up appointment. Where: [address] [facility] [address] [facility] [place] [address]- Discharge Medications GEMA BASSETT :1975 Visit Date:05/31/2022 Medications: Please continue your medications until treatment is completed or stopped by your provider. Medications not listed below should be discontinued. Discuss any questions related to medications with your provider. What How Much When Why Instructions Next Dose New Docusate (docusate sodium 100 mg oral capsule) 1 capsule Oral Twice a day Duration: 3 Days Please take while using narcotic medications ?? Pickup at [place] [address] 06/09 9pm New Heparin (heparin 5000 u/ ml injectable solution) 5,000 unit(s) Subcutaneous Injection Every 8 hours Duration: 20 Days Pickup at [place] [address] 06/09 10pm New Oxycodone (oxyCODONE 5 mg oral tablet) 2 tab(s) Oral Every 6 hours as needed for Pain , Severe Duration: 3 Days Pickup at [place] [address] 06/09 830pm Changed Gabapentin (gabapentin 300 mg oral capsule) 1 capsule Oral 3 times a day Duration: 7 Days Pickup at [place] [address] 06/09 9pm Unchanged Acetaminophen (acetaminophen 500 mg oral tablet) 1 tab(s) Oral 4 times a day as needed for NEEDED FOR PAIN, MAX 4 PER DAY (VIAL. ?? 06/09 9pm Unchanged Amlodipine (amLODIPine 5 mg oral tablet) See instructions TAKE 1 TABLET BY MOUTH ONCE A DAY^1R1 ?? 06/10 9am Unchanged Durable Medical Equipment (Compression Stockings) See instructions Leg swelling Leg pain surgical, calf length 20-30 mm Hg M79.89 M79.606 ?? Unchanged Durable Medical Equipment (R aircast ankle-stirrup support brace) See instructions Ankle sprain Dx: R inversion ankle sprain s93.409a ?? Unchanged Fluticasone Nasal (fluticasone 50 mcg/ inh nasal spray) See instructions USE 1 SPRAY(S) INTO EACH NOSTRIL TWICE A DAY ?? 06/09 9pm Unchanged Folic Acid (folic acid 1 mg oral tablet) 1 tab(s) Oral Daily Duration: 90 Days 06/10 9am Unchanged Furosemide (furosemide 20 mg oral tablet) 1 tab(s) Oral Daily Duration: 30 Days note dose change ?? 06/10 9pm Unchanged HydrOXYzine (hydrOXYzine hydrochloride 25 mg oral tablet) 1 TO 2 TABLETS Oral 3 times a day as needed for NEEDED FOR ANXIETY (VIAL) as needed Unchanged Lactulose (lactulose 10 gm/ 15 ml oral syrup) See instructions TAKE 30ML BY MOUTH THREE TIMES DAILY NEEDED TO ACHEIVE 3-4 BOWL MOVEMENTS PER DAY ?? 06/09 9pm Unchanged Lidocaine Topical (lidocaine 0.5% topical gel) 1 sydnie Topically 3 times a day 06/09 9pm Unchanged Lidocaine Topical (Lidoderm 5% film) 1 patch Topically Daily remove patches after 12 hours NSAIDS contraindicated High dose tylenol contraindicated ?? 06/10 9am Unchanged Magnesium Oxide (magnesium oxide 400 mg oral tablet) 1 tab(s) Oral Twice a day 06/09 9pm Unchanged Melatonin (Melatonin 3 mg oral tablet) 1 tab(s) Oral Daily at Bedtime as needed for NEEDED FOR INSOMNIA (PACKAGE IN TRAY) as needed Unchanged Multivitamin (Tab-A-Jesse oral tablet) 1 tab(s) Oral Daily 06/10 9am Unchanged Pantoprazole (pantoprazole 40 mg oral delayed release tablet) See instructions TAKE 1 TABLET BY MOUTH ONCE A DAY^1R1 ?? 06/10 9am Unchanged Paroxetine (PARoxetine 10 mg oral tablet) 0.5 tab(s) Oral Daily Duration: 90 Days 06/10 9am Unchanged Polyethylene Glycol 3350 (MiraLax Powder) 17 gram Oral Twice a day as needed for Constipation as needed Unchanged Potassium Chloride (Potassium Chloride (Eqv-K-Tab) 20 mEq oral tablet, extended release) 2 tab(s) Oral Daily Duration: 90 Days 06/10 9am Unchanged Pyridoxine (pyridoxine 50 mg oral tablet) 1 tab(s) Oral Daily Duration: 90 Days 06/10 9am Unchanged Rifaximin (Xifaxan 550 mg oral tablet) 1 tab(s) Oral Twice a day 06/09 9pm Unchanged Sildenafil (sildenafil 50 mg oral tablet) 1 tab(s) Oral Daily 1 hour before sexual activity ?? as needed Unchanged Thiamine (Vitamin B1 100 mg oral tablet) 1 tab(s) Oral Daily 06/10 9am Unchanged Trazodone (traZODone 50 mg oral tablet) See instructions TAKE 1 TO 2 TABLETS BY MOUTH AT BEDTIME (ONE DOSE IN VIAL) ?? 06/09 bedtime Unchanged Ubiquinone (Co Q-10 100 mg oral capsule) 1 capsule Oral 4 times a day 06/09 9pm Pharmacy Information [facility]: [address], [place] [id number] [phone] Test Results Below is a partial list of the most recent Laboratory test results done prior to this discharge. You may have had other tests and procedures not included in this list. Please discuss all test resultswith your provider. RBC Available - PT (06/06/2022) RBC Unit ID - [id number] (06/06/2022) Alcohol Level (05/30/2022) ???Ethanol, Serum or Plasma - 170 mg/dL Ammonia Venous (06/04/2022) ???Ammonia, Venous - 31 ??mole/L Basic Metabolic Panel (06/09/2022) ???Sodium - 134 mmol/L???Potassium - 4.1 mmol/L???Chloride - 107 mmol/L???Bicarbonate Level - 23 mmol/L???Anion Gap - 4???Glucose Level - 97 mg/dL???BUN - 9 mg/dL???Creatinine-Blood - 0.7 mg/dL???Estimated GFR Creatinine - 115 ML/MIN/1.73 M2???Calcium - 7.6 mg/dL BUN (06/01/2022) ???BUN - 31 mg/dL CBC (06/06/2022) ???WBC - 5.1 k/mm3???RBC - 2.85 m/mm3???Hgb - 8.4 Gm/dL???Hct - 25.7 %???MCV - 90.2 femtoliters???MCH - 29.5 pg???MCHC - 32.7 g/dL???Platelet Count - 68 k/mm3???RDW-SD - 50.4 femtoliters???MPV - 10.4femtoliters???Nucleated RBC (Automated) - 0.0 #/100 WBC'S???Abs. NRBC - 0.0 k/mm3 CBC w/ Differential (06/09/2022) ???WBC - 3.4 k/mm3???RBC - 2.82 m/mm3???Hgb - 8.5 Gm/dL???Hct - 25.8 %???MCV - 91.5 femtoliters???MCH - 30.1 pg???MCHC - 32.9 g/dL???Platelet Count - 77 k/mm3???RDW-SD - 56.4 femtoliters???MPV - 11.0femtoliters???Nucleated RBC (Automated) - 0.0 #/100 WBC'S???Abs. NRBC - 0.0 k/mm3???Abs. Neut - 1.6 k/mm3???Abs. Lymph - 1.0 k/mm3???Abs. Lake - 0.6 k/mm3???Abs. Eo - 0.2 k/mm3???Abs. Baso - 0.0 k/mm3???Neut % - 47.4 %???Lymph % - 29.4 %???Lake % - 17.6 %???Eos % - 4.4 %???Baso % - 0.3 %???Imm Gran- 0.9 %???Abs. Imm Gran - 0.0 k/mm3 COVID-19 (2019 Novel Coronavirus) PCR (06/08/2022) ???COVID-19 PCR Specimen Source - NASAL???COVID-19 PCR Result - NEGATIVE COVID-19 (Novel Coronavirus), Rapid PCR (05/30/2022) ???COVID-19 by RT-PCR - NEGATIVE Creatinine (06/01/2022) ???Creatinine-Blood - 1.1 mg/dL???Estimated GFR Creatinine - 80 ML/MIN/1.73 M2 Electrolytes (06/01/2022) ???Sodium - 139 mmol/L???Potassium - 4.9 mmol/L???Chloride - 110 mmol/L???Bicarbonate Level - 20 mmol/L???Anion Gap - 9 GLUCOSE POC (06/08/2022) ???Glucose, POC - 122 mg/dL H + H (06/03/2022) ???Hgb - 7.6 Gm/dL???Hct - 21.8 % Hepatic Function Panel (06/09/2022) ???Protein, Total - 4.6 Gm/dL???Albumin - 2.3 Gm/dL???Alkaline Phosphatase - 188 units/L???AST (SGOT) - 64 units/L???ALT (SGPT) - 37 units/L???Bilirubin, Total - 2.3 mg/dL???Bilirubin, Direct - 0.8 mg/dL???Bilirubin, Indirect - 1.5 mg/dL HOLD BLUE TUBE (05/30/2022) ???Hold Blue Top - SPECIMEN DISCARDED AFTER 4 HOURS. HOLD GREEN TUBE (05/30/2022) ???Hold Green Top - SPECIMEN DISCARDED AFTER 1 WEEK INR (06/09/2022) ???INR - 1.2???Protime (PT) - 11.9 seconds Ionized Calcium (06/01/2022) ???Calcium, Ionized pH Corrected - 1.10 mmol/L LFT's (06/02/2022) ???Protein, Total - 4.3 Gm/dL???Albumin - 2.4 Gm/dL???Alkaline Phosphatase - 74 units/L???AST (SGOT) - 105 units/L???ALT (SGPT) - 33 units/L???Bilirubin, Total - 3.2 mg/dL???Bilirubin, Direct - 0.9 mg/dL???Bilirubin, Indirect - 2.3 mg/dL Lytes (06/01/2022) ???Sodium - 138 mmol/L???Potassium - 4.4 mmol/L???Chloride - 108 mmol/L???Bicarbonate Level - 21 mmol/L???Anion Gap - 9 Magnesium Level (06/09/2022) ???Magnesium - 1.8 mg/dL Phosphorus Level (06/09/2022) ???Phosphorus - 2.4 mg/dL Type and Screen (06/04/2022) ???Blood Type - O Negative???Antibody Screen - Negative Allergies (NKA means No Known Allergies) NSAIDs [...] Educational Leaflet Providered with your Discharge Instructions. Rib Fracture?? M-Rib Fracture Activity?? Valuables and Belongings I fully understand and agree that [facility] accepts no responsibility for all my personal [...] List: With patient Disposition of Belongings: Other: pacu closet Date for Pt to Sign Valuables/Belongings: 06/01/22 12:10:00 ?? Other Discharge Information ?? Wound Assessment?? Wound Assessment?? Wound Location I: small abrasion on forehead-no drainage Surgical Incision Type I: Other: puncture site Surgical Incision Assessment I: Clean, dry, intact ?? Case Management Discharge Plan?? Discharge Plan?? Discharge Agency Information?? Discharge Level of Care at Discharge: intermediate facility Agency Volleyball Referee #1: intake Discharge Transportation Arranged: [facility] [address] [facility] ??[phone] Service Start Date and Time #1: 06/09/22 16:00:00 Mode of Transportation Arranged: Ambulance Service Categories #1: Occupational Therapy, Physical Therapy, [facility] Discharge Arranged Transport Date/Time: 06/09/22 16:00:00 Service Comments #1: you are being discharged to [facility] where you will receive further sn, pt , and ot needs. Discharge Nursing Homes/Rehab Facilities: [facility] Name of Person Notified of Transfer: gema bassett ?? Pulmonary Rehab Status?? Pulmonary Rehab Discharge Status?? Respiratory Rate: 19 br/min Respiratory Rate: 16 br/min ? Common Emergency [...] are strongly encouraged to quit. Please call [facility] [employer] at [phone] or [phone] ([phone]) or log in to [email or web address] for referrals to smoking cessation programs. ?? The National Suicide Prevention Hotline is available 04/01 if you or someone you know needs to find a reason to keep living. By calling 3-031-741-[employer] (6743) you'll be connected to a skilled, trained counselor at a crisis center in your area. INPATIENT DISCHARGE INSTRUCTIONS SIGNATURE PAGE GEMA BASSETT Location:[facility] Registration Date and Time:05/31/2022 05:45 EST Primary Care Physician: Jany Baig DO, I GEMA BASSETT, have received the above patient education materials/instructions and have verbalized understanding. If ambulance or transport services are being used I further acknowledge being given a choice of service. ?? If you need to contact me, please call me at this number: . Patient/Insurance Coder Name: Patient/Insurance Coder Signature: Relationship to Patient: Witness Name/Signature: Date: * Jaqueline Duran MD: PERFORM Event Display: Patient Education Leaflets Authored Date: [id number] Rib Fracture ?? [id number] Rib Fracture You broke 1 or more ribs. This is called a rib fracture. Rib fractures don't need a cast like otherbones. They will heal by themselves in about 4 to 6 weeks. The first 3 to 4 weeks will be the most painful. During this time??deep breathing, coughing, or changing position from sitting to lying down, may cause the broken ends to move slightly. Home care ??? Rest. Don't do any heavy lifting or strenuous exertion until the pain goes away. ??? It hurts to breathe when you have a broken rib. This puts you at risk of getting pneumonia from poorairflow through your lungs. To prevent this: o Take??a few??very deep breaths??once an hour while you're awake. Breathe out??through pursed lips as if you are blowing up a balloon.??If possible, actua lly blow up a balloon or a rubber glove.??This exercise builds up pressure inside the lung and prevents collapse of the small air sacs of the lung. This exercise may cause some pain at the site of injury. This is normal. o You may have gotten a breathing exercise device called an incentive spirometer. Use it at least 4 times a day, or as directed. ??? Apply an ice pack over the injured area for 15 to 20 minutes every??1 to 2??hours. Do this for??the first??24 to 48 hours. To make an ice pack, put ice cubes in a plastic bag that seals at the top. Wrap the bag in a clean, thin towel or cloth. Never put ice or an ice pack directly on your skin. Keep using??ice packs??as needed to ease pain and swelling. ??? You may use??ivxe-oeo-ewfzvwe pain medicine??to control pain, unless another pain medicine was prescribed.??If you have chronic liver or kidney disease or ever had a stomach ulcer, gastrointestinal??bleeding, or take a blood thinner, talk with your healthcare provider??before??using these medicines. ??? If your pain is not controlled, contact your provider. Sometimes a stronger painmedicine may be needed. A nerve block can be done in case of severe pain. It will numb the nerve between the ribs. ?? Follow-up care Follow up with your healthcare provider, or as advised. In rare cases, a broken rib will cause complications in the first few days that may not be clearly seen during your initial exam. This can include collapsed lung, bleeding around the lung or into the belly (abdomen), or pneumonia. So watch forthe signs below. If X-rays were taken,??you will be told of any new findings that may affect your care. ?? Call 911 Call 911 if you have: ??? Dizziness, weakness or fainting ??? Shortness of breath with or without chest discomfort ??? New or worsening abdominal pain ??? Discomfort in other areas of your upper bodysuch as your shoulders, jaw, neck, or arms ?? When to get medical advice Call your healthcare provider right away if any of these occur: ??? Increasing chest pain with breathing ??? Fever of 100.4??F (38??C) or above, or as directed by your provider ??? Chills ??? Congested cough, nausea, or vomiting ?? Last Reviewed Date: 2021 ?? 5038-7942 [employer]. All rights reserved. This information is not intended as a substitute for professional medical care. Always follow your healthcare professional's instructions. ?? * Roger LEE, Jaqueline Beyer: PERFORM Event Display: Patient Education Leaflets Authored Date: [id number] M-Rib Fracture Activity ?? 191 Activity: ??? No heavy lifting ??? No strenuous exercise ??? No driving until completely off narcotic medications, no exceptions ??? Encourage deep breathing and coughing ??? Encourage use of incentive spirometer ?? The most important part of treating a fractured rib is resting while it heals. Resting your ribs will decrease swelling and allow the injury to heal faster. This may take up to 4-6 weeks. Avoid activities that may cause more pain and damage to your ribs. When the pain decreases begin movements slowly. Be careful during activities and avoid bumping injured rib. ?? Caregivers may suggest that you wear a rib belt, binder, or brace. A rib brace supports the rib cage during activities. Do not wear a rib brace unless caregivers say it is OK. ?? Use heat to decrease pain or swelling. Heat brings blood to the injured area and helps it heal faster. Use a heating pad (turned on low) or a hot water bottle. Do this for 15-20 minutes every hour for as long as your caregiver suggests. Do not sleep on the heating pad or hot water bottle. This can cause a bad skin burn. ?? To help prevent pneumonia, take 10 deep breaths every hour even if you wake up during the night. Bracing your ribs with your hands or a pillow while taking the deep breaths can help decrease the pain. ?? Contact a Caregiver if: ??? You have bruising on your chest ??? You have a fever ??? You get a cold and are coughing a lot ??? You have chest pain or trouble breathing that is getting worse over time ??? You have questions or concerns about your treatment or care ?? See Care Immediately if: ??? You cough up thick or bloody sputum ??? You have chest pain ??? You have increased trouble breathing ??? You have nausea, vomiting, or abdominal (stomach) pain ??? Your pain gets worse even after taking medications ??? You suddenly feel lightheaded and have trouble breathing ??? You have new and sudden chest pain ??? You may have more pain when you take deep breaths or cough ??? You may also cough up blood ??? Your arm or leg feels warm, tender, and painful. It may look swollen and red. ?? * BHSPowerTRAV denson S: TRANSCRIAleksandr Mendenhall MD S: VERIFY Event Display: Result: Authored Date: [id number] PROCEDURE: CT Angio Abdomen Aorta Bilat IlioFem INDICATION: Reason: Trauma; ? active extrav from R glute; Clinical Question(s): Other:; Order Comment: RELEVANT CLINICAL INFORMATION/CLINICAL QUESTION: Other: TECHNIQUE: CT angiography of the abdomen and lower extremities was performed using contiguous helical images from the diaphragm to the feet. 100 cc of Omnipaque 300 was administered intravenously. One mm axial images were reconstructed. Sagittal and coronal reformatted images were rendered. High resolution multiplanar, volume rendered and MIP images were created and used to evaluate the abdominal aorta and lower extremity arteries in multiple projections on an independent workstation, with permanent images saved to PACS. Automatic tube current modulation was used to optimize exposure parameters. RADIATION DOSE PARAMETERS: CTDIvol Body: 14.83 mGy, DLP Body: 1501 mGy*cm. COMPARISON: FINDINGS: CT angiogram of the abdomen and pelvis demonstrates normal caliber of the abdominal aortic aorta. No stenosis in the aorta or its major branches. No significant calcification. Three-vessel runoff noted in the lower leg. Popliteal artery as well as the superficial femoral artery, common femoral artery, iliac arteries appear all patent. There is a right gluteal hematoma. Evaluating the overall size and configuration, believe this is essentially unchanged from the previous examination from the same day. The discrete area noted in theright hip lateral to the right gluteus medius muscle measures 8.6 cm in maximal dimension compared to 7 cm on the previous examination. There is a small focus of high density on axial image 95 [id number] in the gluteus medius muscle as well as several small areas in the gluteus teresita area posterior to the hip fracture. Small area noted posterior to the intertrochanteric area on image 109 appears unchanged from previous exam 06/03/2022 image 196 series 201. The area questioned in the gluteus medius/teresita area on the previous exam does appear slightly higher density on the current exam, though has not increased in size and again I do not see an increase in size of the adjacent hematoma. The small foci of high density are suggestive of pseudoaneurysms given the generally similar appearance on the arterial and portal venous phases as well as the lack of change in the appearance of the hematoma. OTHER FINDINGS: Moveman View Findings, Lines and Tubes: None. Liver: Findings of cirrhosis. TIPS as previously noted. Gallbladder: Cholelithiasis without evidence of acute cholecystitis. Bile ducts: No intra or extra hepatic bile duct dilation. Spleen: Normal in size and attenuation. Pancreas: Unremarkable. Adrenal Glands: Unremarkable. Kidneys: No calculi or hydronephrosis. No suspicious masses. Bladder: Unremarkable. Stomach, small and large bowel: Unremarkable. Appendix: No evidence of acute appendicitis. Peritoneum, omentum and mesentery: No ascites or pneumoperitoneum. No omental or mesenteric lesions. Lymph nodes: None enlarged. Abdominal wall: See above regarding right gluteal hematoma. Reproductive organs: Unremarkable. Bones: Status post right hip intertrochanteric fracture with expected postoperative appearance status post fixation. IMPRESSION: Stable size of the right gluteal hematoma as well as stable enlargement of the gluteal muscles. I do not see findings to indicate new bleed compared to the previous examination 4 hours previous Several small foci of high density noted in the gluteus teresita/gluteus medius area. These could represent vessels or pseudoaneurysms given the lack of interval change from the previous examination 4hours earlier. Otherwise stable examination. Findings of cirrhosis. Status post fixation of right intertrochanteric fracture. WSN: [id number] Ordering Physician: January Peters Dictated By: Aleksandr Hodge MD Dictated Date/Time: 06/03/22 7:17 pm Reviewed By: Aleksandr Hodge MD Signed By: Aleksandr Hodge MD Signed Date/Time: 06/03/22 7:17 pm Transcribed By: MIRNA Transcribed Date/Time: 06/03/22 5:39 pm * Nick Potter MD: PERFORM, TRANSCRIBE, VERIFY, VERIFY Event Display: Result: Authored Date: [id number] Patient: GEMA BASSETT Study Date: 06/03/2022 Performing: Nick Potter MD Referring: : 1975 Age: 47 Gender: MALE Pre-procedure diagnosis and Indication: right gluteal hematoma with active extravasation seen on CT. Active bleeding requiring transfusion. Exam: Prior to the procedure, the patient was seen and the nature of the procedure explained along with its attendant risks and benefits to a family member over the phone . Informed consent was obtained from, a family member over the phone . The patient underwent a pre-anesthesia assessment. On completion of this it was determined the patient is not a candidate for moderate sedation as he is not NPO. The patient arrived in IR room 1 for a pelvic angiogram PROCEDURE: The patient was positioned supine and secured with arm boards. The access site was evaluated, then prepped with chloraprep and draped in the usual sterile fashion. . Following administration of 1% lidocaine buffered with sodium bicarbonate for local anesthesia, a puncture was made into the right common femoral artery with a 21-gauge micropuncture needle under direct ultrasound guidance. The micropuncture needle was exchanged for a micropuncture sheath over a 0.018 guidewire. The inner dilator and guidewire were removed and a 0.035 guidewire was placed. The outer dilator was then exchanged for a 5 Vincentian vascular sheath. Contrast injected through the sheath demonstrated the puncture site to be above the bifurcation with flow down the leg. A digital subtraction Angiogram from the right external iliac artery was performed which demonstrates normal anatomy and no evidence of active extravasation. A 5 Vincentian Smartling Omni 2 catheter Was then used to select the right internal iliac artery. Digital subtraction angiogram (DSA) was performed which demonstrates active extravasation off of a branch vessel of the right superior gluteal artery. A 2.8 Vincentian prograte microcatheter was then used to select the branch vessel leading to the active extravasation. After confirming position with contrast injection, embolization was performed with 1 cc of Gelfoam slurry followed by three 3 x 2 tornado coils. Post embolization DSA from the right superior gluteal artery as well as from the internal iliac artery demonstrate successful occlusion of the embolized vessel with no further evidence of active extravasation.. Satisfied with our result we elected to terminate the procedure. Contrast injected through the sheath demonstrated no evidence of arterial injury with good flow down the leg. The sheath was removed and hemostasis was achieved with a MynxGrip device and manual compression. A sterile compression was applied. The patient tolerated the procedure. The sterile field was maintained throughout the procedure and patient tolerated the procedure well with no complications of the procedure estimated blood loss was minimal Specimens/samples: no specimens or samples were sent for this procedure Post procedure instructions sent in envelope with the patient Impression: Angiogram demonstrating active extravasation from branch vessel of the right superior gluteal artery in concordance with findings on recent cross-sectional imaging. Selective embolization of the bleeding vessel performed utilizing Gelfoam and coils as above. Post intervention angiogram demonstrating successful occlusion of the embolized vessel with no further evidence of active extravasation. Fluoroscopy time and dose Total Fluoro Time: 9.4 mins Total dose 248 mGy Total DAP 5056.39 - ?Gy/m2 Contrast used Contrast used: Omnipaque_300 110 ml's Local Anesthetic Lidocaine 1% w/ 4.2% sodium bicarbonate 7 ml's SQ Agent Dose Route Time By Fentanyl 50 mcg IV 19:21:16 EJ Fentanyl 50 mcg IV 19:42:25 EJ Signed By Nick Potter MD On 06/03/2022 20:24:08 Nick Potter MD Dictated By: Nick Potter MD Dictated Date/Time: 06/03/22 7:15 pm Reviewed By: Nick Potter MD Signed By: Nick Potter MD Signed Date/Time: 06/03/22 8:24 pm Transcribed By: ARAVIND Transcribed Date/Time: 06/03/22 8:24 pm * Event Display: IR End of Case Report * [facility] , CIS S: TRANSCRIBE Nelson Vasques MD: VERIFY Event Display: Result: Authored Date: [id number] Chest 2 Views Frontal and Lat Reason: Other:; Clinical Question(s): Pleural Effusion COMPARISON: 06/02/2022 FINDINGS: LINES AND TUBES: None. LUNGS AND PLEURA: Layering left pleural effusion with area of consolidation or atelectasis within the left lower lobe. No pneumothorax. HEART, MEDIASTINUM AND DAISY: Heart is normal in size. Normal mediastinal and hilar contour. BONES AND SOFT TISSUES: No acute abnormality. IMPRESSION: Layering left pleural effusion with associated atelectasis or pneumonia. WSN: [id number] Ordering Physician: Tommy Ramos Dictated By: Nelson Vasques MD Dictated Date/Time: 06/03/22 9:05 am Reviewed By: Nelson Vasques MD Signed By: Nelson Vasques MD Signed Date/Time: 06/03/22 9:05 am Transcribed By: MIRNA Transcribed Date/Time: 06/03/22 9:04 am * Event Display: Cardiac Rhythm Strips Authored Date: * Event Display: Cardiac Rhythm Strips Authored Date: * TRAV Pacheco S: Perlita Alex MD: VERIFY Juan De Jesus DO: SIGN Event Display: Result: Authored Date: [id number] Chest 2 Views Frontal and Lat Reason: Follow-Up Pleural Effusion; Clinical Question(s): Pleural Effusion COMPARISON: Multiple priors, most recently 06/01/2022. FINDINGS: LINES AND TUBES: None. LUNGS AND PLEURA: No significant change in moderate left pleural effusion and associated compressive atelectasis although evaluation is slightly limited by patient arm positioning. No right pleural effusion. No pneumothorax. HEART, MEDIASTINUM AND DAISY: Heart is normal in size. Normal mediastinal and hilar contour. BONES AND SOFT TISSUES: Unchanged widening of the left AC joint. Limited evaluation of known bilateral left-sided rib fractures. Partially visualized biliary stent and surgical material in the upper abdomen. IMPRESSION: Unchanged moderate left pleural effusion. I have personally reviewed the images and I agree with this report. WSN: [id number] Ordering Physician: January Peters Dictated By: Juan De Jesus DO Dictated Date/Time: 06/02/22 8:44 am Reviewed By: Perlita Tapia MD Signed By: Perlita Tapia MD Signed Date/Time: 06/02/22 8:49 am Transcribed By: MIRNA Transcribed Date/Time: 06/02/22 8:38 am * TRAV Pacheco S: Shine Sanchez MD: VERIFY Event Display: Result: Authored Date: [id number] Chest 2 Views Frontal and Lat Reason: Respiratory distress. Clinical Question(s): Pleural Effusion; Special Instructions: 06 01 @0500 COMPARISON: CT from May 31, 2022 FINDINGS: LINES AND TUBES: None. LUNGS AND PLEURA: Low lung volumes with a moderate sized left pleural effusion predominantly layering posteriorly. There is basilar atelectasis as well, left greater than right. No definite pneumothorax. HEART, MEDIASTINUM AND DAISY: Heart is normal in size. Normal mediastinal and hilar contour. BONES AND SOFT TISSUES: Left clavicle fracture and multiple left-sided rib fractures are better appreciated on the prior CT. Right upper quadrant stent and coils overlying the mid abdomen. IMPRESSION: Moderate-sized left pleural effusion predominantly layering posteriorly. Clavicle and rib fractures best appreciated on the prior CT. WSN: [id number] Ordering Physician: January Peters Dictated By: Shine Zepeda MD Dictated Date/Time: 06/01/22 8:43 am Reviewed By: Shine Zepeda MD Signed By: Shine Zepeda MD Signed Date/Time: 06/01/22 8:43 am Transcribed By: MIRNA Transcribed Date/Time: 06/01/22 8:35 am * TRAV Pacheco S: Gerard Vega MD: VERIFY Event Display: Result: Authored Date: [id number] Hip Comp 2 Views Right, C-Arm > 1 Hour INDICATION: Reason: Right hip fx; ORIF COMPARISONS: 05/31/2022 TECHNIQUE: Fluoroscopy support was provided. There was no radiologist in attendance. FLUOROSCOPY TIME: 2 minutes 25 seconds EXPOSURE: 35.49 mGy (reference air kerma) TECHNOLOGIST TIME: 1 hour 20 minutes FINDINGS: 4 images were submitted showing ORIF of the previously noted intertrochanteric femur fracture. Please refer to operative note for full details. IMPRESSION: See above. WSN: [id number] Ordering Physician: Tobias Hernandez Dictated By: Gerard Espinal MD Dictated Date/Time: 06/01/22 9:37 am Reviewed By: Gerard Espinal MD Signed By: Gerard Espinal MD Signed Date/Time: 06/01/22 9:37 am Transcribed By: MIRNA Transcribed Date/Time: 06/01/22 9:36 am * TRAV Pacheco S: Tommy Garza MD: VERIFY Event Display: Result: Authored Date: [id number] Clavicle Complete Left Reason: Pain; Clinical Question(s): Fracture COMPARISON: 12/17/2018 FINDINGS: No acute fracture. Similar appearing chronic erosive changes involving the lateral aspect of the clavicle with widening of the acromioclavicular joint space. Mild soft tissue swelling overlying the acromioclavicular joint and lateral shoulder. IMPRESSION: Similar-appearing chronic erosive changes involving lateral aspect of clavicle with acromioclavicular joint space widening. No acute fracture. Mild soft tissue swelling overlying the acromioclavicular joint and lateral shoulder. WSN: [id number] Ordering Physician: Sanjuana Mathews Dictated By: Tommy Martinez MD Dictated Date/Time: 05/31/22 9:39 am Reviewed By: Tommy Martinez MD Signed By: Tommy Martinez MD Signed Date/Time: 05/31/22 9:39 am Transcribed By: MIRNA Transcribed Date/Time: 05/31/22 9:36 am Hospital Progress note * Kristel Castro RN: PERFORM, SIGN, VERIFY Event Display: Progress Note Hospital Authored Date: [id number] Patient: GEMA BASSETT Age: 47 years Sex: Male : 1975 Associated Diagnoses: None Author: Kristel Castro RN Findings Evaluation Pt discharged and picked up by EMS @ start of shift. IV was removed from Right arm. Pt was cleaned up after a large BM before going. AOx4 and awake and alert. All valuables and belongings went with patient.. * Jaqueline Duran MD: MODIFY, SIGN, VERIFY, PERFORM Event Display: Progress Note Hospital Authored Date: [id number] Patient: GEMA BASSETT Age: 47 years Sex: Male : 1975 Associated Diagnoses: None Author: Jaqueline Duran MD Subjective Patient seen and examined at bedside. No acute events overnight. Patient states that his pain is well controlled. Denies any fevers, chills, nausea, vomiting, shortness of breath or abdominal pain. He has been tolerating a diet, voiding and having bowel movements. IS 1000. Objective Temperature 98.2 (10:31) Systolic Blood Pressure 142 (10:31) Diastolic Blood Pressure 69 (10:31) Pulse 110 (12:55) SpO2 98 (10:31) Respiratory Rate 14 (10:31) General: No acute distress, awake, alert Head: Normocephalic, atraumatic Cardiac: RRR Respiratory: Lungs clear to auscultation bilaterally Gastrointestinal: soft, nontender, nondistended Extremities: Right hip ecchymosis with hematoma is soft. LUE in sling. R gluteus soft, dressings with serous drainage. RLE compartments soft Neuro: AAOx3 Psychiatric: Mood and affect is in within normal limits. IS: 1000 Results Review 7 Day Results Results Laboratory : LABORATORY 06/09/2022 4:07 EST WBC 3.4 k/mm3 L RBC 2.82 m/mm3 L Hgb 8.5 Gm/dL L Hct 25.8 % L MCV 91.5 femtoliters MCH 30.1 pg MCHC 32.9 g/dL L Platelet Count 77 k/mm3 L RDW-SD 56.4 femtoliters H MPV 11.0 femtoliters Nucleated RBC (Automated) 0.0 #/100 WBC'S Abs. NRBC 0.0 k/mm3 Abs. Neut 1.6 k/mm3 Abs. Lymph 1.0 k/mm3 Abs. Lake 0.6 k/mm3 Abs. Eo 0.2 k/mm3 Abs. Baso 0.0 k/mm3 Neut % 47.4 % Lymph % 29.4 % Lake % 17.6 % H Eos % 4.4 % Baso % 0.3 % Imm Gran 0.9 % Abs. Imm Gran 0.0 k/mm3 INR 1.2 H Protime (PT) 11.9 seconds H Sodium 134 mmol/L Potassium 4.1 mmol/L Chloride 107 mmol/L Bicarbonate Level 23 mmol/L Anion Gap 4 Glucose Level 97 mg/dL BUN 9 mg/dL Creatinine-Blood 0.7 mg/dL Estimated GFR Creatinine 115 ML/MIN/1.73 M2 Calcium 7.6 mg/dL L Phosphorus 2.4 mg/dL L Magnesium 1.8 mg/dL Protein, Total 4.6 Gm/dL L Albumin 2.3 Gm/dL L Alkaline Phosphatase 188 units/L H AST (SGOT) 64 units/L H ALT (SGPT) 37 units/L Bilirubin, Total 2.3 mg/dL H Bilirubin, Direct 0.8 mg/dL H Bilirubin, Indirect 1.5 mg/dL H Impression and Plan Gema Bassett is a 47-year-old man with a history of depression and alcoholic cirrhosis and esophageal varices requiring TIPS procedure and prior paracentesis, who presented to [facility] after being found down in a parking lot. He was found to have the injuries listed below, and was admitted to the trauma surgery service for further care. Went to OR with ortho on 06/[address] Hernandez and tolerated procedure well, however HH drop to 5.4 warranting a transfusion with moderate effect so anothertransfusion started on 06/02. Pleural effusion identified on AM CXR, and CT chest done to follow upwith slight increase in effusion. Went to the OR on 06/01 for right hip fracture repair. Received 2units pRBC post-op due to downtrending H/H. Patient status post IR angiogram of the right lower extremity for which there was active extravasation from the right superior gluteal artery and was embolized 06/03. Patient required transfusions for low Hb on 06/04 and 06/05. TEG was obtained on 06/05, which was normal. On 06/06, patient once again has low Hb of 6.9 from 9.1, and repeat CTA demonstrate d layering hematoma within R gluteus concerning for ongoing bleeding for which a pelvic binder was applied with good effect. H/H s/p 1u RBC 06/06 with appropriate response, will continue to monitor. Hemoglobin continues to be stable. PT has seen the patient and recommends rehab, awaiting placement. Injuries Displaced right intertrochanteric femur fracture with gluteal soft tissue hematoma T3-T9 transverse process fractures Possible T10 transverse process fracture Posterior left-sided rib fractures 3-10 Small hemopneumothorax Bilateral intraparenchymal hematomas Small subdural hematoma Small subarachnoid hematoma Plan: Regular diet Monitor H&H CPT/DuoNeb/incentive spirometer Rib fracture protocol WA Daily labs and electrolyte repletion's Recommendations per orthopedic surgery - OOB with PT, TDWB RLE, WBAT LLE - May use sling to left arm for comfort - Daily DSDs per nursing - Encourage IS/deep breathing - DVT prophylaxis: Heparin SC - Would recommend continuing x 28 days post-op - No further intervention planned at this time for draining hematoma Appreciate recommendations per neurosurgery - OK for Ortho to take to OR for hip fx, OK for HOB to be flat if needed although best to be elevated if possible. Maintain BP at a stable pressure between 110-130 if possible - OK for chemical DVT prophylaxis today if needed, but if going to OR with Ortho, they will need toweight in on timing of giving Chemical DVT prophylaxis - we do not recommend full anticoagulation for at least 30 days due to hemorrhages around the brainstem. - no neurosurgical follow up needed - OK for Ortho to take to OR for hip fx, OK for HOB to be flat if needed although best to be elevated if possible. Maintain BP at a stable pressure between 110-130 if possible - OK for chemical DVT prophylaxis today if needed, but if going to OR with Ortho, they will need toweight in on timing of giving Chemical DVT prophylaxis - we do not recommend full anticoagulation for at least 30 days due to hemorrhages around the brainstem. Physical therapy- rehab DVT prophylax with HSQ TID Discussed with Dr [place] [phone] with any questions or concerns. * Gloria LOUIE, Kristel Luis: PERFORM, SIGN, VERIFY Event Display: Progress Note Hospital Authored Date: [id number] Patient: GEMA BASSETT Age: 47 years Sex: Male : 1975 Associated Diagnoses: None Author: Gloria LOUIE, Kristel Luis Findings Problem Related to Alteration in Musculoskeletal : Alteration in Musculoskeletal Func/new 06/08/2022 21:00 EST Alteration in Musculoskeletal Related to Fracture, Mobility Goals & Outcomes, Musculoskeletal Affected extremity will maintain color/motion/sensation, Pt demonstrates precautions/exercise/ transfers per protocol, Pt will ambulate safely with assistive device, Pt will report acceptable level of comfort/pain relief Interventions, Musculoskeletal monitor Color/Motion/Sensation, Assist with repositioning, Encouragedeep breathing & coughing exercises, Obtain assistive devices as needed Goals/Interventions, Musculoskeletal Yes Musculoskeletal, Problem Start 06/02/2022 11:00 Reviewed Plan with, Musculoskeletal Patient Patient Progression, Musculoskeletal Pt progressing according to plan . Evaluation Pt in C. AOx4. Legally blind. ST on tele. Bedrest during shift. Lungs clear on RA. Positive BS x 4 quads. Tolerating diet. CYU in urinal. Dressing on right hip.leg CDI. Pt resting comfortably in bed.. CT Abdomen and Pelvis W contrast IV * [facility] , CIS S: TRANSCROSALIND Espinal MD, Gerard Jorgensen: VERIFY Event Display: Result: Authored Date: [id number] CT Chest W/ Contrast, CT Abd/Pelvis W/ IV Contrast Only INDICATION: Reason: acute anemia with fluid in the chest, assess not bleeding; trauma, question bleed, continues to require transfusions. TECHNIQUE: Helical CT scan of the chest, abdomen, and pelvis with IV contrast, formatted in 3 planes. 100 cc of Omnipaque 300 was administered intravenously. This study was performed without oral contrast. Weight-based protocol was performed using automatic exposure control. CTDIvol Body: 11.80 mGy, DLP Body: 874 mGy*cm. COMPARISON: CT chest 06/02/2022, CT chest, abdomen, and pelvis 05/31/2022. FINDINGS: Moveman view findings, lines and tubes: None. Trachea and airways: Mucus in trachea. Lungs and pleura: Partial atelectasis of the left lower lobe. Mild right basilar atelectasis. No pneumothorax. No significant change in size of a small to moderate simple appearing left pleural effusion. No active contrast extravasation into the pleural space. Mediastinum and daisy: No mass or hematoma. No mediastinal or hilar lymphadenopathy. No esophageal abnormality. Heart: Heart is normal in size. No pericardial effusion. Aorta: No aortic aneurysm. Pulmonary arteries: Normal caliber. No evidence of pulmonary embolism on this study performed without angiographic technique. Chest wall soft tissues: Edema in the anterior chest wall, left more than right associated with theleft clavicle fracture. No organized fluid collection or active contrast extravasation. Diaphragm: Intact. Liver: No acute abnormality. Cirrhosis. Status post TIPS. No evidence of hemorrhage. Gallbladder: Cholelithiasis. Distended gallbladder without significant surrounding fat stranding. Bile ducts: No biliary ductal dilation. Spleen: Mild splenomegaly. Pancreas: No suspicious lesion or ductal dilatation. Adrenal glands: No nodule. Kidneys and ureters: No hydronephrosis, stone, or suspicious lesion. Simple appearing renal cysts and hypodensities that are too small to characterize are noted, requiring no dedicated follow up. Bladder: No [...] No evidence of venous thrombosis. Embolization coils in the upper abdomen. Abdominal and pelvic wall soft tissues: New 7.1 x 4.2 cm high density fluid collection in the rightgluteal subcutaneous fat (series 201 image 169), with a small focus of gas which is likely postoperative. Subtle focus of increased attenuation in the right gluteal musculature (series 201 image 177), measuring approximately 8 mm. Extensive subcutaneous edema in the right more than left flank. Edema in the right thigh status post ORIF of the intertrochanteric fracture. Small bilateral fat-containing inguinal hernias. Bones: Mildly displaced left medial clavicle fracture as well as multiple left rib and left thoracic spine transverse process fractures again seen. Status post ORIF of the intertrochanteric right femur fracture in significantly improved alignment. IMPRESSION: 1. New right gluteal hematoma with a small focus of high attenuation that could represent active contrast extravasation or small pseudoaneurysm. No other evidence of active bleeding. This finding wasconveyed by [facility] by Dr. Espinal to Tyra Mark MD and January Peters NP on 06/03/2022 at 1:15PM . 2. Multiple fractures as previously described, with improved alignment of the right intertrochanteric fracture status post ORIF. 3. Unchanged size of simple appearing left pleural effusion without evidence of active hemorrhage. 4. Cirrhosis status post TIPS. 5. Cholelithiasis. WSN: [id number] Ordering Physician: Tyra Mark Dictated By: Gerard Espinal MD Dictated Date/Time: 06/03/22 1:17 pm Reviewed By: Gerard Espinal MD Signed By: Gerard Espinal MD Signed Date/Time: 06/03/22 1:17 pm Transcribed By: MIRNA Transcribed Date/Time: 06/03/22 1:00 pm * TRAV Pacheco S: TRANSCROSALIND Martinez MD, Tommy Worthington: VERIFY Suzanne Lyles DO: SIGN Event Display: Result: Authored Date: [id number] CT Chest W/ Contrast, CT Abd/Pelvis W/ IV Contrast Only INDICATION: Hx of Present Illness: found in a parking lot complaining of back pain ems states pt isintoxicated. pt states he drank a beer and a shot; Reason: Trauma; Clinical Question(s): Other:; Rib Fracture; Order Comment: 1.0 gfr > 30 TECHNIQUE: Helical CT scan of the chest, abdomen, and pelvis with IV contrast, formatted in 3 planes. 100 cc of Omnipaque 300 was administered intravenously. This study was performed without oral contrast. Weight-based protocol was performed using automatic exposure control. CTDIvol Body: 9.60 mGy, DLP Body: 733 mGy*cm. COMPARISON: CT chest without/pelvis 07/17/2018. CTA chest 09/04/2021 FINDINGS: Moveman view findings, lines and tubes: None. Trachea and airways: Patent without evidence of tracheal or endobronchial lesion. Lungs and pleura: No significant increased size of a small mixed density left pleural effusion. Moderate left basilar atelectasis. A trace left pneumothorax is suspected (series 205 image 15). Trace air is seen in the left posterior lung base (series 201 image 87). Similar diffuse soft tissue swelling and soft tissue hematomas surrounding multiple left-sided rib fractures. Mediastinum and daisy: No mass or hematoma. No mediastinal or hilar lymphadenopathy. Esophagus is patulous. Heart: Heart is normal in size. No pericardial effusion. Moderate coronary artery calcification. Aorta: No aortic aneurysm. Pulmonary arteries: Normal caliber. Moderate respiratory motion artifact decreases sensitivity, butthere is no evidence of a large central pulmonary embolism on this study performed without angiographic technique. Filling defects within the lobar, segmental, subsegmental pulmonary arteries cannot be excluded. Chest wall soft tissues: Mild bilateral gynecomastia. Moderate soft tissue swelling involving left sternocleidomastoid muscle and soft tissue about left clavicle fracture described below. Moderate soft tissue swelling about left rib fractures described below. Diaphragm: Intact. Liver: Cirrhotic morphology of the liver with patent TIPS in place. No suspicious hepatic lesions appreciated. Gallbladder: Cholelithiasis without evidence of acute cholecystitis. Persistent gallbladder distention. Bile ducts: No biliary ductal dilation. Spleen: Mild splenomegaly. Pancreas: No suspicious lesion or ductal dilatation. Adrenal glands: No nodule. Kidneys and ureters: No hydronephrosis, stone, or suspicious lesion. Simple appearing renal cysts and hypodensities that are too small to characterize are noted, requiring no dedicated follow up. Bladder: Urinary bladder is incompletely distended. Reproductive organs: Unremarkable. Stomach, small bowel, and large bowel: Normal caliber stomach and bowel loops. No surrounding inflammatory changes. Appendix: No evidence of acute appendicitis. Peritoneum and retroperitoneum: No ascites or pneumoperitoneum. No omental or mesenteric lesions. Lymph nodes: No enlarged lymph nodes. Blood vessels: Mild vascular calcifications but no aneurysm. No evidence of venous thrombosis. Embolization coils within upper abdomen. Abdominal and pelvic wall soft tissues: Small bilateral fat-containing inguinal hernias. Multiple osseous fractures as below: An acute significantly displaced right intertrochanteric fracture is seen with partial shearing of the lesser trochanter (series 207 image 55). The right gluteus medius, right obturator externus, andthe adductor muscles appear prominent compared to the contralateral side suggestive of a developingsoft tissue hematoma. Comminuted mildly displaced fracture of the left proximal clavicle. Similar diffuse soft tissue swelling and soft tissue hematomas surrounding multiple left-sided rib fractures. Displaced comminuted fracture of the left third posterior rib adjacent to the T3 vertebra with a probable nondisplaced fracture of the left T3 transverse process. Nondisplaced fracture of the left posterior fourth rib near the T4 vertebra, a secondary displaced fracture of the left posterolateral rib 4, and left T4 transverse process fracture are seen. Nondisplaced fracture of the left posterior fifth the rib near the T5 vertebra, a secondary displaced fracture of the left posterolateral rib 5, mildly displaced fracture of the T5 spinous process, and left T5 transverse process are seen. Moderately displaced fracture of the left anterior rib 5. Nondisplaced fracture of the left anterior rib 6. Nondisplaced fracture of the left anterior rib 7. Nondisplaced fracture of the left T6 transverse process, mildly displaced T6 spinous process fracture, and a nondisplaced fracture of the left posterior lateral rib 6 are seen. Nondisplaced fracture of the left T7 transverse process, posterior left rib 7 fracture adjacent to the T7 vertebra, mildly displaced fracture of the T7 spinous process, and a nondisplaced left posterolateral rib 7 fracture are seen. Nondisplaced fracture of the left T8 transverse process, nondisplaced fracture of the posterior left rib 8 adjacent to the T8 vertebra, mildly displaced fracture of the T8 spinous process, and a nondisplaced left posterolateral rib 8 fracture are seen. Nondisplaced fracture of the left T9 transverse process, nondisplaced fracture of the posterior left rib 9 adjacent to the T9 vertebra is suspected, nondisplaced fracture of the T9 spinous process, and a nondisplaced left posterolateral rib 9 fracture are seen. A nondisplaced fracture of the posterior left rib 10 at the T10 vertebra is suspected. Nondisplacedfracture of the left posterolateral rib 10 with partial callus formation, suggestive of a healing fracture. Additional nondisplaced left rib fractures may be present. IMPRESSION: Moderate respiratory motion artifact decreases sensitivity, but there is no evidence of a large central pulmonary embolism on this study performed without angiographic technique. Filling defects within the lobar, segmental, subsegmental pulmonary arteries cannot be excluded. A small left hemopneumothorax is suspected with a trace left pneumothorax component. Multiple osseous fractures as below: An acute significantly displaced right intertrochanteric fracture is seen with partial shearing of the lesser trochanter. The right gluteus medius, right obturator externus, and the adductor muscles appear prominent compared to the contralateral side suggestive of developing soft tissue hematomas. Comminuted mildly displaced fracture of the left proximal clavicle. Displaced comminuted fracture of the left third posterior rib adjacent to the T3 vertebra with a probable nondisplaced fracture of the left T3 transverse process. Nondisplaced fracture of the left posterior fourth rib near the T4 vertebra, a secondary displaced fracture of the left posterolateral rib 4, and left T4 transverse process fracture are seen. Nondisplaced fracture of the left posterior fifth the rib near the T5 vertebra, a secondary displaced fracture of the left posterolateral rib 5, mildly displaced fracture of the T5 spinous process, and left T5 transverse process are seen. Moderately displaced fracture of the left anterior rib 5. Nondisplaced fracture of the left anterior rib 6. Nondisplaced fracture of the left anterior rib 7. Nondisplaced fracture of the left T6 transverse process, mildly displaced T6 spinous process fracture, and a nondisplaced fracture of the left posterior lateral rib 6 are seen. Nondisplaced fracture of the left T7 transverse process, posterior left rib 7 fracture adjacent to the T7 vertebra, mildly displaced fracture of the T7 spinous process, and a nondisplaced left posterolateral rib 7 fracture are seen. Nondisplaced fracture of the left T8 transverse process, nondisplaced fracture of the posterior left rib 8 adjacent to the T8 vertebra, mildly displaced fracture of the T8 spinous process, and a nondisplaced left posterolateral rib 8 fracture are seen. Nondisplaced fracture of the left T9 transverse process, nondisplaced fracture of the posterior left rib 9 adjacent to the T9 vertebra is suspected, nondisplaced fracture of the T9 spinous process, and a nondisplaced left posterolateral rib 9 fracture are seen. A nondisplaced fracture of the posterior left rib 10 at the T10 vertebra is suspected. Nondisplacedfracture of the left posterolateral rib 10 with partial callus formation, suggestive of a healing fracture. No acute intra-abdominal abnormality. Dr. Suzanne Lyles reported the above findings via Cortext to ED provider HELEN Montano on 05/31/2022 at 5:15 AM. I have personally reviewed the images and I agree with this report. WSN: [id number] Ordering Physician: Babs Montano Dictated By: Suzanne Lyles DO Dictated Date/Time: 05/31/22 8:12 am Reviewed By: Tommy Martinez MD Signed By: Tommy Martinez MD Signed Date/Time: 05/31/22 8:17 am Transcribed By: MIRNA Transcribed Date/Time: 05/31/22 5:[address] Chest W contrast IV * [facility] , TRAV S: TRANSCRIGerard Mora MD S: VERIFY Event Display: Result: Authored Date: [id number] CT Chest W/ Contrast, CT Abd/Pelvis W/ IV Contrast Only INDICATION: Reason: acute anemia with fluid in the chest, assess not bleeding; trauma, question bleed, continues to require transfusions. TECHNIQUE: Helical CT scan of the chest, abdomen, and pelvis with IV contrast, formatted in 3 planes. 100 cc of Omnipaque 300 was administered intravenously. This study was performed without oral contrast. Weight-based protocol was performed using automatic exposure control. CTDIvol Body: 11.80 mGy, DLP Body: 874 mGy*cm. COMPARISON: CT chest 06/02/2022, CT chest, abdomen, and pelvis 05/31/2022. FINDINGS: Moveman view findings, lines and tubes: None. Trachea and airways: Mucus in trachea. Lungs and pleura: Partial atelectasis of the left lower lobe. Mild right basilar atelectasis. No pneumothorax. No significant change in size of a small to moderate simple appearing left pleural effusion. No active contrast extravasation into the pleural space. Mediastinum and daisy: No mass or hematoma. No mediastinal or hilar lymphadenopathy. No esophageal abnormality. Heart: Heart is normal in size. No pericardial effusion. Aorta: No aortic aneurysm. Pulmonary arteries: Normal caliber. No evidence of pulmonary embolism on this study performed without angiographic technique. Chest wall soft tissues: Edema in the anterior chest wall, left more than right associated with theleft clavicle fracture. No organized fluid collection or active contrast extravasation. Diaphragm: Intact. Liver: No acute abnormality. Cirrhosis. Status post TIPS. No evidence of hemorrhage. Gallbladder: Cholelithiasis. Distended gallbladder without significant surrounding fat stranding. Bile ducts: No biliary ductal dilation. Spleen: Mild splenomegaly. Pancreas: No suspicious lesion or ductal dilatation. Adrenal glands: No nodule. Kidneys and ureters: No hydronephrosis, stone, or suspicious lesion. Simple appearing renal cysts and hypodensities that are too small to characterize are noted, requiring no dedicated follow up. Bladder: No [...] No evidence of venous thrombosis. Embolization coils in the upper abdomen. Abdominal and pelvic wall soft tissues: New 7.1 x 4.2 cm high density fluid collection in the rightgluteal subcutaneous fat (series 201 image 169), with a small focus of gas which is likely postoperative. Subtle focus of increased attenuation in the right gluteal musculature (series 201 image 177), measuring approximately 8 mm. Extensive subcutaneous edema in the right more than left flank. Edema in the right thigh status post ORIF of the intertrochanteric fracture. Small bilateral fat-containing inguinal hernias. Bones: Mildly displaced left medial clavicle fracture as well as multiple left rib and left thoracic spine transverse process fractures again seen. Status post ORIF of the intertrochanteric right femur fracture in significantly improved alignment. IMPRESSION: 1. New right gluteal hematoma with a small focus of high attenuation that could represent active contrast extravasation or small pseudoaneurysm. No other evidence of active bleeding. This finding wasconveyed by Cortext by Dr. Espinal to Tyra Mark MD and January Peters NP on 06/03/2022 at 1:15PM . 2. Multiple fractures as previously described, with improved alignment of the right intertrochanteric fracture status post ORIF. 3. Unchanged size of simple appearing left pleural effusion without evidence of active hemorrhage. 4. Cirrhosis status post TIPS. 5. Cholelithiasis. WSN: [id number] Ordering Physician: Tyra Mark Dictated By: Gerard Espinal MD Dictated Date/Time: 06/03/22 1:17 pm Reviewed By: Gerard Espinal MD Signed By: Gerard Espinal MD Signed Date/Time: 06/03/22 1:17 pm Transcribed By: MIRNA Transcribed Date/Time: 06/03/22 1:00 pm * [facility] , CIS S: TRANSCRIBE Aga LEE, med: SIGN Jonathon LEE, Estela: VERIFY Event Display: Result: Authored Date: [id number] CT Chest W/ Contrast INDICATION: Reason: Trauma; ? worsening L pleural effusion; Clinical Question(s): Other:; Order Comment: TECHNIQUE: Helical CT scan of the chest with IV contrast, formatted in 3 planes. 75 cc of [id number] was administered intravenously. Weight-based protocol was performed using automatic exposure control. CTDIvol Body: 6.50 mGy, DLP Body: 245 mGy*cm. COMPARISON: 05/31/2022. FINDINGS: Moveman view findings, lines and tubes: None. Trachea and airways: Patent without evidence of tracheal or endobronchial lesion. Lungs and pleura: Slightly increased fanzt-ej-caxoxgeg fluid density left pleural effusion with fissural extension and increase in underlying atelectasis. No pneumothorax. Mediastinum and daisy: No mass or hematoma. No mediastinal or hilar lymphadenopathy. No esophageal abnormality. Normal thyroid. Heart: Heart is normal in size. No pericardial effusion. Moderate coronary artery calcification. Aorta: Mild vascular calcification but no aneurysm. Pulmonary arteries: Normal caliber. No evidence of pulmonary embolism on this study performed without angiographic technique. Chest wall soft tissues: Decrease in soft tissue swelling overlying the left sternocleidomastoid muscle and anterior to the manubrium and superior sternum. Gynecomastia. Diaphragm: Intact. Upper abdomen: The visualized adrenal glands appear unremarkable. Redemonstrated TIPS shunt, multiple surgical clips in the superior aspect of the mesenteric root, cirrhotic liver, and partially visualized distended gallbladder with multiple gallstones. Bones: Redemonstrated medial left clavicular mildly displaced comminuted fracture. Multiple rib fractures including the left posterior and lateral 1st through 10th ribs, and left transverse processes of T3 through T9. IMPRESSION: 1. Slight increase in size of left hyodp-gz-qnctzion fluid density pleural effusion with increase in underlying atelectasis. 2. Unchanged fractured left 1st through 10th ribs, left transverse processes of T3-T9, in the medial left clavicle. No new fractures. 3. Decreased soft tissue hematoma overlying the left sternocleidomastoid muscle and anterior to thesternum. 4. Chronic findings including cirrhosis, TIPS shunt, mesenteric root surgical clips and cholelithiasis without evidence of cholecystitis. I have personally reviewed the images and I agree with this report. WSN: [id number] Ordering Physician: January Peters Dictated By: Dominic Yung MD Dictated Date/Time: 06/02/22 1:48 pm Reviewed By: Estela Holt MD Signed By: Estela Holt MD Signed Date/Time: 06/02/22 1:53 pm Transcribed By: MIRNA Transcribed Date/Time: 06/02/22 1:43 pm * Tara , CIS S: TRANSCTommy Bell MD: VERIFY Suzanne Lyles DO: SIGN Event Display: Result: Authored Date: [id number] CT Chest W/ Contrast, CT Abd/Pelvis W/ IV Contrast Only INDICATION: Hx of Present Illness: found in a parking lot complaining of back pain ems states pt isintoxicated. pt states he drank a beer and a shot; Reason: Trauma; Clinical Question(s): Other:; Rib Fracture; Order Comment: 1.0 gfr > 30 TECHNIQUE: Helical CT scan of the chest, abdomen, and pelvis with IV contrast, formatted in 3 planes. 100 cc of Omnipaque 300 was administered intravenously. This study was performed without oral contrast. Weight-based protocol was performed using automatic exposure control. CTDIvol Body: 9.60 mGy, DLP Body: 733 mGy*cm. COMPARISON: CT chest without/pelvis 07/17/2018. CTA chest 09/04/2021 FINDINGS: Moveman view findings, lines and tubes: None. Trachea and airways: Patent without evidence of tracheal or endobronchial lesion. Lungs and pleura: No significant increased size of a small mixed density left pleural effusion. Moderate left basilar atelectasis. A trace left pneumothorax is suspected (series 205 image 15). Trace air is seen in the left posterior lung base (series 201 image 87). Similar diffuse soft tissue swelling and soft tissue hematomas surrounding multiple left-sided rib fractures. Mediastinum and daisy: No mass or hematoma. No mediastinal or hilar lymphadenopathy. Esophagus is patulous. Heart: Heart is normal in size. No pericardial effusion. Moderate coronary artery calcification. Aorta: No aortic aneurysm. Pulmonary arteries: Normal caliber. Moderate respiratory motion artifact decreases sensitivity, butthere is no evidence of a large central pulmonary embolism on this study performed without angiographic technique. Filling defects within the lobar, segmental, subsegmental pulmonary arteries cannot be excluded. Chest wall soft tissues: Mild bilateral gynecomastia. Moderate soft tissue swelling involving left sternocleidomastoid muscle and soft tissue about left clavicle fracture described below. Moderate soft tissue swelling about left rib fractures described below. Diaphragm: Intact. Liver: Cirrhotic morphology of the liver with patent TIPS in place. No suspicious hepatic lesions appreciated. Gallbladder: Cholelithiasis without evidence of acute cholecystitis. Persistent gallbladder distention. Bile ducts: No biliary ductal dilation. Spleen: Mild splenomegaly. Pancreas: No suspicious lesion or ductal dilatation. Adrenal glands: No nodule. Kidneys and ureters: No hydronephrosis, stone, or suspicious lesion. Simple appearing renal cysts and hypodensities that are too small to characterize are noted, requiring no dedicated follow up. Bladder: Urinary bladder is incompletely distended. Reproductive organs: Unremarkable. Stomach, small bowel, and large bowel: Normal caliber stomach and bowel loops. No surrounding inflammatory changes. Appendix: No evidence of acute appendicitis. Peritoneum and retroperitoneum: No ascites or pneumoperitoneum. No omental or mesenteric lesions. Lymph nodes: No enlarged lymph nodes. Blood vessels: Mild vascular calcifications but no aneurysm. No evidence of venous thrombosis. Embolization coils within upper abdomen. Abdominal and pelvic wall soft tissues: Small bilateral fat-containing inguinal hernias. Multiple osseous fractures as below: An acute significantly displaced right intertrochanteric fracture is seen with partial shearing of the lesser trochanter (series 207 image 55). The right gluteus medius, right obturator externus, andthe adductor muscles appear prominent compared to the contralateral side suggestive of a developingsoft tissue hematoma. Comminuted mildly displaced fracture of the left proximal clavicle. Similar diffuse soft tissue swelling and soft tissue hematomas surrounding multiple left-sided rib fractures. Displaced comminuted fracture of the left third posterior rib adjacent to the T3 vertebra with a probable nondisplaced fracture of the left T3 transverse process. Nondisplaced fracture of the left posterior fourth rib near the T4 vertebra, a secondary displaced fracture of the left posterolateral rib 4, and left T4 transverse process fracture are seen. Nondisplaced fracture of the left posterior fifth the rib near the T5 vertebra, a secondary displaced fracture of the left posterolateral rib 5, mildly displaced fracture of the T5 spinous process, and left T5 transverse process are seen. Moderately displaced fracture of the left anterior rib 5. Nondisplaced fracture of the left anterior rib 6. Nondisplaced fracture of the left anterior rib 7. Nondisplaced fracture of the left T6 transverse process, mildly displaced T6 spinous process fracture, and a nondisplaced fracture of the left posterior lateral rib 6 are seen. Nondisplaced fracture of the left T7 transverse process, posterior left rib 7 fracture adjacent to the T7 vertebra, mildly displaced fracture of the T7 spinous process, and a nondisplaced left posterolateral rib 7 fracture are seen. Nondisplaced fracture of the left T8 transverse process, nondisplaced fracture of the posterior left rib 8 adjacent to the T8 vertebra, mildly displaced fracture of the T8 spinous process, and a nondisplaced left posterolateral rib 8 fracture are seen. Nondisplaced fracture of the left T9 transverse process, nondisplaced fracture of the posterior left rib 9 adjacent to the T9 vertebra is suspected, nondisplaced fracture of the T9 spinous process, and a nondisplaced left posterolateral rib 9 fracture are seen. A nondisplaced fracture of the posterior left rib 10 at the T10 vertebra is suspected. Nondisplacedfracture of the left posterolateral rib 10 with partial callus formation, suggestive of a healing fracture. Additional nondisplaced left rib fractures may be present. IMPRESSION: Moderate respiratory motion artifact decreases sensitivity, but there is no evidence of a large central pulmonary embolism on this study performed without angiographic technique. Filling defects within the lobar, segmental, subsegmental pulmonary arteries cannot be excluded. A small left hemopneumothorax is suspected with a trace left pneumothorax component. Multiple osseous fractures as below: An acute significantly displaced right intertrochanteric fracture is seen with partial shearing of the lesser trochanter. The right gluteus medius, right obturator externus, and the adductor muscles appear prominent compared to the contralateral side suggestive of developing soft tissue hematomas. Comminuted mildly displaced fracture of the left proximal clavicle. Displaced comminuted fracture of the left third posterior rib adjacent to the T3 vertebra with a probable nondisplaced fracture of the left T3 transverse process. Nondisplaced fracture of the left posterior fourth rib near the T4 vertebra, a secondary displaced fracture of the left posterolateral rib 4, and left T4 transverse process fracture are seen. Nondisplaced fracture of the left posterior fifth the rib near the T5 vertebra, a secondary displaced fracture of the left posterolateral rib 5, mildly displaced fracture of the T5 spinous process, and left T5 transverse process are seen. Moderately displaced fracture of the left anterior rib 5. Nondisplaced fracture of the left anterior rib 6. Nondisplaced fracture of the left anterior rib 7. Nondisplaced fracture of the left T6 transverse process, mildly displaced T6 spinous process fracture, and a nondisplaced fracture of the left posterior lateral rib 6 are seen. Nondisplaced fracture of the left T7 transverse process, posterior left rib 7 fracture adjacent to the T7 vertebra, mildly displaced fracture of the T7 spinous process, and a nondisplaced left posterolateral rib 7 fracture are seen. Nondisplaced fracture of the left T8 transverse process, nondisplaced fracture of the posterior left rib 8 adjacent to the T8 vertebra, mildly displaced fracture of the T8 spinous process, and a nondisplaced left posterolateral rib 8 fracture are seen. Nondisplaced fracture of the left T9 transverse process, nondisplaced fracture of the posterior left rib 9 adjacent to the T9 vertebra is suspected, nondisplaced fracture of the T9 spinous process, and a nondisplaced left posterolateral rib 9 fracture are seen. A nondisplaced fracture of the posterior left rib 10 at the T10 vertebra is suspected. Nondisplacedfracture of the left posterolateral rib 10 with partial callus formation, suggestive of a healing fracture. No acute intra-abdominal abnormality. Dr. Suzanne Lyles reported the above findings via Cortext to ED provider HELEN Montano on 05/31/2022 at 5:15 AM. I have personally reviewed the images and I agree with this report. WSN: [id number] Ordering Physician: Babs Montano Dictated By: Suzanne Lyles DO Dictated Date/Time: 05/31/22 8:12 am Reviewed By: Tommy Martinez MD Signed By: Tommy Martinez MD Signed Date/Time: 05/31/22 8:17 am Transcribed By: MIRNA Transcribed Date/Time: 05/31/22 5:[address] Lumbar spine WO contrast * [facility] , CIS S: TRANSCRIBE Tommy Martinez MD: VERIFY Suzanne Lyles DO: SIGN Event Display: Result: Authored Date: [id number] CT Thoracic Spine W/O Contrast, CT Lumbar Spine W/O Contrast INDICATION: Hx of Present Illness: Found in a parking lot complaining of back pain. Possible fall. Reason: Spine fracture, thoracic, traumatic; Clinical Question(s): Fracture Dislocation, Fracture/Dislocation TECHNIQUE: Noncontrast CT of the thoracic spine was performed. Bone and soft tissue algorithms werereconstructed along with coronal and sagittal computations. Weight-based protocol using automatic tube modulation was used to optimize exposure parameters. RADIATION DOSE PARAMETERS: CTDIvol Body: 21.30 mGy, DLP Body: 1285 mGy*cm. COMPARISON: CT chest with abdomen/pelvis 07/17/[address] cervical and thoracic spine 05/02/2022 FINDINGS: Spine: Comminuted mildly displaced fracture of the left proximal clavicle. Displaced comminuted fracture of the left third posterior rib adjacent to the T3 vertebra with a probable nondisplaced fracture of the left T3 transverse process (series 201 image 41). Nondisplaced fracture of the left posterior fourth rib near the T4 vertebra, a secondary displaced fracture of the left posterolateral rib 4, and left T4 transverse process are seen(series 201 image 51-53). Nondisplaced fracture of the left posterior fifth rib near the T5 vertebra, a secondary displaced fracture of the left posterolateral rib 5, mildly displaced fracture of the T5 spinous process, and left T5 transverse process fracture are seen (series 201 image 61-63). Nondisplaced fracture of the left T6 transverse process, mildly displaced T6 spinous process fracture, and a nondisplaced fracture of the left posterior lateral rib 6 areseen (series 201 image 74-77). Nondisplaced fracture of the left T7 transverse process, posterior left rib 7 fracture adjacent to the T7 vertebra, mildly displaced fracture of the T7 spinous process,and nondisplaced left posterolateral rib 7 fracture are seen (series 201 image 87-94). Nondisplacedfracture of the left T8 transverse process, nondisplaced fracture of the posterior left rib 8 adjacent to the T8 vertebra, mildly displaced fracture of the T8 spinous process, and a nondisplaced leftposterolateral rib 8 fracture are seen (series 201 image 102- 107). Nondisplaced fracture of the left T9 transverse process, nondisplaced fracture of the posterior left rib 9 adjacent to the T9 vertebra is suspected, nondisplaced fracture of the T9 spinous process, and a nondisplaced left posterolateral rib 9 fracture are seen (series 201 image 115-123). A nondisplaced fracture of the posterior left rib 10 at the T10 vertebra is suspected. Nondisplaced fracture of the left posterolateral rib 10 (series 201 image [id number]). No acute fracture of the lumbar spine. Soft tissues: Image quality is somewhat degraded by patient motion artifact. A trace left pneumothorax is suspected. A mixed density layering small left pleural effusion is noted. Findings are suspicious for a left hemopneumothorax. Underlying atelectasis/aspiration in the left lower lung is not excluded. Diffuse soft tissue swelling of the posterior lateral left chest wall associated with multiple left-sided rib fractures as described above. Coronary artery calcification. Patient is status post TIPS. Upper abdomen embolization coils. Partially-imaged cholelithiasis and distended gallbladder. Small simple a ppearing left renal cyst. IMPRESSION: A trace left pneumothorax is suspected with a mixed density layering small left pleural effusion. Findings are suspicious for a left hemopneumothorax. Underlying atelectasis/aspiration in the left lower lung is not excluded. Comminuted mildly displaced fracture of the left proximal clavicle. Displaced comminuted fracture of the left third posterior rib adjacent to the T3 vertebra with a probable nondisplaced fracture of the left T3 transverse process. Nondisplaced fracture of the left posterior fourth rib near the T4 vertebra, a secondary displaced fracture of the left posterolateral rib 4, and left T4 transverse process fracture are seen. Nondisplaced fracture of the left posterior fifth the rib near the T5 vertebra, a secondary displaced fracture of the left posterolateral rib 5, mildly displaced fracture of the T5 spinous process, and left T5 transverse process are seen. Nondisplaced fracture of the left T6 transverse process, mildly displaced T6 spinous process fracture, and a nondisplaced fracture of the left posterior lateral rib 6 are seen. Nondisplaced fracture of the left T7 transverse process, posterior left rib 7 fracture adjacent to the T7 vertebra, mildly displaced fracture of the T7 spinous process, and a nondisplaced left posterolateral rib 7 fracture are seen. Nondisplaced fracture of the left T8 transverse process, nondisplaced fracture of the posterior left rib 8 adjacent to the T8 vertebra, mildly displaced fracture of the T8 spinous process, and a nondisplaced left posterolateral rib 8 fracture are seen. Nondisplaced fracture of the left T9 transverse process, nondisplaced fracture of the posterior left rib 9 adjacent to the T9 vertebra is suspected, nondisplaced fracture of the T9 spinous process, and a nondisplaced left posterolateral rib 9 fracture are seen. A nondisplaced fracture of the posterior left rib 10 at the T10 vertebra is suspected. Nondisplacedfracture of the left posterolateral rib 10. No acute fracture of the lumbar spine. Dr. Suzanne Lyles discussed the above findings via phone with ED provider HELEN Montano on 05/31/2022 at 2:25 AM. I have personally reviewed the images and I agree with this report. WSN: [id number] Ordering Physician: Quirino Garcia Dictated By: Suzanne Lyles DO Dictated Date/Time: 05/31/22 7:19 am Reviewed By: Tommy Martinez MD Signed By: Tommy Martinez MD Signed Date/Time: 05/31/22 7:24 am Transcribed By: MIRNA Transcribed Date/Time: 05/31/22 2:[address] Thoracic spine WO contrast * [facility] , CIS S: TRANSCRIBE Tommy Martinez MD: VERIFY Suzanne Lyles DO: SIGN Event Display: Result: Authored Date: [id number] CT Thoracic Spine W/O Contrast, CT Lumbar Spine W/O Contrast INDICATION: Hx of Present Illness: Found in a parking lot complaining of back pain. Possible fall. Reason: Spine fracture, thoracic, traumatic; Clinical Question(s): Fracture Dislocation, Fracture/Dislocation TECHNIQUE: Noncontrast CT of the thoracic spine was performed. Bone and soft tissue algorithms werereconstructed along with coronal and sagittal computations. Weight-based protocol using automatic tube modulation was used to optimize exposure parameters. RADIATION DOSE PARAMETERS: CTDIvol Body: 21.30 mGy, DLP Body: 1285 mGy*cm. COMPARISON: CT chest with abdomen/pelvis 07/17/[address] cervical and thoracic spine 05/02/2022 FINDINGS: Spine: Comminuted mildly displaced fracture of the left proximal clavicle. Displaced comminuted fracture of the left third posterior rib adjacent to the T3 vertebra with a probable nondisplaced fracture of the left T3 transverse process (series 201 image 41). Nondisplaced fracture of the left posterior fourth rib near the T4 vertebra, a secondary displaced fracture of the left posterolateral rib 4, and left T4 transverse process are seen(series 201 image 51-53). Nondisplaced fracture of the left posterior fifth rib near the T5 vertebra, a secondary displaced fracture of the left posterolateral rib 5, mildly displaced fracture of the T5 spinous process, and left T5 transverse process fracture are seen (series 201 image 61-63). Nondisplaced fracture of the left T6 transverse process, mildly displaced T6 spinous process fracture, and a nondisplaced fracture of the left posterior lateral rib 6 areseen (series 201 image 74-77). Nondisplaced fracture of the left T7 transverse process, posterior left rib 7 fracture adjacent to the T7 vertebra, mildly displaced fracture of the T7 spinous process,and nondisplaced left posterolateral rib 7 fracture are seen (series 201 image 87-94). Nondisplacedfracture of the left T8 transverse process, nondisplaced fracture of the posterior left rib 8 adjacent to the T8 vertebra, mildly displaced fracture of the T8 spinous process, and a nondisplaced leftposterolateral rib 8 fracture are seen (series 201 image 102- 107). Nondisplaced fracture of the left T9 transverse process, nondisplaced fracture of the posterior left rib 9 adjacent to the T9 vertebra is suspected, nondisplaced fracture of the T9 spinous process, and a nondisplaced left posterolateral rib 9 fracture are seen (series 201 image 115-123). A nondisplaced fracture of the posterior left rib 10 at the T10 vertebra is suspected. Nondisplaced fracture of the left posterolateral rib 10 (series 201 image 129-135). No acute fracture of the lumbar spine. Soft tissues: Image quality is somewhat degraded by patient motion artifact. A trace left pneumothorax is suspected. A mixed density layering small left pleural effusion is noted. Findings are suspicious for a left hemopneumothorax. Underlying atelectasis/aspiration in the left lower lung is not excluded. Diffuse soft tissue swelling of the posterior lateral left chest wall associated with multiple left-sided rib fractures as described above. Coronary artery calcification. Patient is status post TIPS. Upper abdomen embolization coils. Partially-imaged cholelithiasis and distended gallbladder. Small simple a ppearing left renal cyst. IMPRESSION: A trace left pneumothorax is suspected with a mixed density layering small left pleural effusion. Findings are suspicious for a left hemopneumothorax. Underlying atelectasis/aspiration in the left lower lung is not excluded. Comminuted mildly displaced fracture of the left proximal clavicle. Displaced comminuted fracture of the left third posterior rib adjacent to the T3 vertebra with a probable nondisplaced fracture of the left T3 transverse process. Nondisplaced fracture of the left posterior fourth rib near the T4 vertebra, a secondary displaced fracture of the left posterolateral rib 4, and left T4 transverse process fracture are seen. Nondisplaced fracture of the left posterior fifth the rib near the T5 vertebra, a secondary displaced fracture of the left posterolateral rib 5, mildly displaced fracture of the T5 spinous process, and left T5 transverse process are seen. Nondisplaced fracture of the left T6 transverse process, mildly displaced T6 spinous process fracture, and a nondisplaced fracture of the left posterior lateral rib 6 are seen. Nondisplaced fracture of the left T7 transverse process, posterior left rib 7 fracture adjacent to the T7 vertebra, mildly displaced fracture of the T7 spinous process, and a nondisplaced left posterolateral rib 7 fracture are seen. Nondisplaced fracture of the left T8 transverse process, nondisplaced fracture of the posterior left rib 8 adjacent to the T8 vertebra, mildly displaced fracture of the T8 spinous process, and a nondisplaced left posterolateral rib 8 fracture are seen. Nondisplaced fracture of the left T9 transverse process, nondisplaced fracture of the posterior left rib 9 adjacent to the T9 vertebra is suspected, nondisplaced fracture of the T9 spinous process, and a nondisplaced left posterolateral rib 9 fracture are seen. A nondisplaced fracture of the posterior left rib 10 at the T10 vertebra is suspected. Nondisplacedfracture of the left posterolateral rib 10. No acute fracture of the lumbar spine. Dr. Suzanne Lyles discussed the above findings via phone with ED provider HELEN Montano on 05/31/2022 at 2:25 AM. I have personally reviewed the images and I agree with this report. WSN: [id number] Ordering Physician: Quirino Garcia Dictated By: Suzanne Lyles DO Dictated Date/Time: 05/31/22 7:19 am Reviewed By: Tommy Martinez MD Signed By: Tommy Martinez MD Signed Date/Time: 05/31/22 7:24 am Transcribed By: MIRNA Transcribed Date/Time: 05/31/22 2:[address] Cervical spine WO contrast * [facility] , CIS S: TRANSCRIBE Tommy Martinez MD: VERIFY Suzanne Lyles DO: SIGN Event Display: Result: Authored Date: [id number] CT Head/Brain W/O Contrast, CT Cervical Spine W/O Contrast Hx of Present Illness: Found in parking lot with back pain. Fall suspected. Reason: Trauma; Clinical Question(s): ICH. TECHNIQUE: Incremental CT without contrast through the head was formatted in axial and coronal planes. Spiral CT without contrast through the cervical spine was formatted in 3 planes. Weight-based protocol using automatic tube modulation was used to optimize exposure parameters. CTDIvol Body: 14.70 mGy, DLP Body: 348 mGy*cm. CTDIvol Head: 39.70 mGy, DLP Head: 840 mGy*cm. COMPARISON: CT head 05/02/2022 FINDINGS: BRAIN and EXTRA-AXIAL SPACES: A small intraparenchymal hematoma measures 1.3 cm in the inferior right medial temporal lobe (series 202 image 39). A right ambient cistern/subdural hematoma seen layering along the medial aspect of the right tentorial leaflet measuring up to 5 mm (series 202 image 43). A smaller focus of hyperdensity in the left temporal lobe is suspicious for a tiny intraparenchymal or subarachnoid hemorrhage (series 202 image 57). Trace right greater than left layering intraventricular hemorrhage is seen in the bilateral occipital horns. Mild prominence of the ventricles and sulci consistent with parenchymal volume loss. Mild low-density white matter changes. No evidence of an acute infarct. CALVARIUM, SKULL BASE AND SOFT TISSUES: No fractures or suspicious bony lesions. The paranasal sinuses and mastoid air cells are clear. Visualized orbits and globes are intact. Moderate left parietal scalp hematoma. CERVICAL SPINE: No fracture. No acute osseous abnormalities. Normal alignment. No locked or perched facet. Stable moderate multilevel degenerative changes. OTHER BONES: No acute abnormality. CERVICAL SOFT TISSUES AND LUNG APICES: Clear lung apices. Partially imaged soft tissue swelling involving left sternocleidomastoid muscle and left anterior upper chest wall musculature. IMPRESSION: A small intraparenchymal hematoma measures 1.3 cm in the inferior aspect of the right medial temporal lobe. A smaller focus of hyperdensity in the left temporal lobe is suspicious for a tiny intraparenchymal/subarachnoid hemorrhage. A small 5 mm right ambient cistern/subdural hematoma seen layering along the medial aspect of the right tentorial leaflet. Trace right greater than left layering intraventricular hemorrhage is seen in the bilateral occipital horns. Moderate left parietal scalp hematoma without evidence of an acute osseous abnormality. No acute cervical spine abnormality. Dr. Suzanne Lyles discussed the above preliminary findings via phone with ED provider HELEN Montano on 05/31/2022 at 4:30 AM. I have personally reviewed the images and I agree with this report. WSN: [id number] Ordering Physician: Babs Montano Dictated By: Suzanne Lyles DO Dictated Date/Time: 05/31/22 7:57 am Reviewed By: Tommy Martinez MD Signed By: Tommy Martinez MD Signed Date/Time: 05/31/22 8:02 am Transcribed By: MIRNA Transcribed Date/Time: 05/31/22 4:[address] Head WO contrast * [facility] , CIS S: TRANSCRIBE Tommy Martinez MD: VERIFY Suzanne Lyles DO: SIGN Event Display: Result: Authored Date: [id number] CT Head/Brain W/O Contrast, CT Cervical Spine W/O Contrast Hx of Present Illness: Found in parking lot with back pain. Fall suspected. Reason: Trauma; Clinical Question(s): ICH. TECHNIQUE: Incremental CT without contrast through the head was formatted in axial and coronal planes. Spiral CT without contrast through the cervical spine was formatted in 3 planes. Weight-based protocol using automatic tube modulation was used to optimize exposure parameters. CTDIvol Body: 14.70 mGy, DLP Body: 348 mGy*cm. CTDIvol Head: 39.70 mGy, DLP Head: 840 mGy*cm. COMPARISON: CT head 05/02/2022 FINDINGS: BRAIN and EXTRA-AXIAL SPACES: A small intraparenchymal hematoma measures 1.3 cm in the inferior right medial temporal lobe (series 202 image 39). A right ambient cistern/subdural hematoma seen layering along the medial aspect of the right tentorial leaflet measuring up to 5 mm (series 202 image 43). A smaller focus of hyperdensity in the left temporal lobe is suspicious for a tiny intraparenchymal or subarachnoid hemorrhage (series 202 image 57). Trace right greater than left layering intraventricular hemorrhage is seen in the bilateral occipital horns. Mild prominence of the ventricles and sulci consistent with parenchymal volume loss. Mild low-density white matter changes. No evidence of an acute infarct. CALVARIUM, SKULL BASE AND SOFT TISSUES: No fractures or suspicious bony lesions. The paranasal sinuses and mastoid air cells are clear. Visualized orbits and globes are intact. Moderate left parietal scalp hematoma. CERVICAL SPINE: No fracture. No acute osseous abnormalities. Normal alignment. No locked or perched facet. Stable moderate multilevel degenerative changes. OTHER BONES: No acute abnormality. CERVICAL SOFT TISSUES AND LUNG APICES: Clear lung apices. Partially imaged soft tissue swelling involving left sternocleidomastoid muscle and left anterior upper chest wall musculature. IMPRESSION: A small intraparenchymal hematoma measures 1.3 cm in the inferior aspect of the right medial temporal lobe. A smaller focus of hyperdensity in the left temporal lobe is suspicious for a tiny intraparenchymal/subarachnoid hemorrhage. A small 5 mm right ambient cistern/subdural hematoma seen layering along the medial aspect of the right tentorial leaflet. Trace right greater than left layering intraventricular hemorrhage is seen in the bilateral occipital horns. Moderate left parietal scalp hematoma without evidence of an acute osseous abnormality. No acute cervical spine abnormality. Dr. Suzanne Lyles discussed the above preliminary findings via phone with ED provider HELEN Montano on 05/31/2022 at 4:30 AM. I have personally reviewed the images and I agree with this report. WSN: [id number] Ordering Physician: Babs Montano Dictated By: Suzanne Lyles DO Dictated Date/Time: 05/31/22 7:57 am Reviewed By: Tommy Martinez MD Signed By: Tommy Martinez MD Signed Date/Time: 05/31/22 8:02 am Transcribed By: MIRNA Transcribed Date/Time: 05/31/22 4:37 am * TRAV Pacheco S: TRANSCRIBertram Lizama MD: GILLES Yung MD, Ahmed: SIGN Event Display: Result: Authored Date: [id number] CT Head/Brain W/O Contrast INDICATION: Reason: Trauma; FU CTH at 10am TECHNIQUE: Noncontrast head CT using axial technique and reconstructed in axial and coronal planes.Iterative reconstruction techniques are used to optimize dose and image quality. CTDIvol Head: 44.21 mGy, DLP Head: 796 mGy*cm. COMPARISON: 05/31/2022 at 3:34 AM. FINDINGS: Moveman view findings, lines and tubes: None. BRAIN AND EXTRA-AXIAL SPACES: 1.2 cm intraparenchymal hematoma in the right medial temporal lobe, unchanged (series 302:65). 2.1 cm hematoma along the medial right tentorial leaflet, protruding into/partially within the ambient cistern, unchanged (series 302:60). Small focus of probable subarachnoid hemorrhage in the left posterior sylvian fissure (series 302:72), unchanged. Slightly increased small volume intraventricular hemorrhage layering within the right occipital horn and unchanged trace intraventricular hemorrhage in the left occipital horn. No new hemorrhages. No territorial infarct. No mass effect or midline shift. Negative insular ribbon sign. Atherosclerotic vascular calcification of the carotid arteries but negative hyperdense vessel sign. Moderate prominence of the ventricles and sulci consistent with parenchymal volume loss. No evidence of developing hydrocephalus. Moderate low-density white matter changes. CALVARIUM, SKULL BASE, AND SOFT TISSUES: No fractures or suspicious bony lesions. Fractured right central maxillary incisor (series 303:28) incidentally noted. The paranasal sinuses and mastoid air cells are clear. Visualized orbits and globes are intact. Small left supraorbital scalp hematoma. IMPRESSION: 1. Generally stable small multicompartmental hemorrhages as described above, with slight increase in right occipital horn intraventricular hemorrhage, possibly the result of redistribution. 2. Fractured right central maxillary incisor incidentally noted. No evidence of the lateral ventricles. I have personally reviewed the images and I agree with this report. WSN: [id number] Ordering Physician: January Petersagros Dictated By: Dominic Yung MD Dictated Date/Time: 05/31/22 11:54 a Reviewed By: Bertram Galvin MD Signed By: Bertram Galvin MD Signed Date/Time: 05/31/22 11:59 am Transcribed By: MIRNA Transcribed Date/Time: 05/31/22 11:35 am XR Femur - right 2 Views * Tara , CIS S: RACHEL Martinez MD, Tommy Worthington: VERIFY Event Display: Result: Authored Date: [id number] Femur 2 Views Right, frontal and lateral views Hx of Present Illness: found in a parking lot complaining of back pain ems states pt is intoxicated. pt states he drank a beer and a shot; Reason: Pain; Clinical Question(s): Fracture COMPARISON: None. FINDINGS: Mildly comminuted right intertrochanteric fracture with lateral displacement and distraction measuring at least 1 cm at superior aspect of fracture margin. Visualized portions of the jointsare normal. Mild prepatellar soft tissue swelling. IMPRESSION: Mildly comminuted, displaced, distracted right intertrochanteric fracture. WSN: [id number] Ordering Physician: Quirino Garcia Dictated By: Tommy Martinez MD Dictated Date/Time: 05/31/22 8:31 am Reviewed By: Tommy Martinez MD Signed By: Tommy Martinez MD Signed Date/Time: 05/31/22 8:31 am Transcribed By: MIRNA Transcribed Date/Time: 05/31/22 8:29 am * [facility] , CIS S: TRANSCRIBE Tommy Martinez MD: VERIFY Event Display: Result: Authored Date: [id number] Femur 2 Views Right, XR Hip w/Pelvis 2-3 View Right Reason: Trauma; Clinical Question(s): Fracture COMPARISON: 05/30/2022 femur x-ray FINDINGS: Comminuted distracted laterally displaced intertrochanteric fracture again demonstrated. There appears to be increased medial displacement of the lesser trochanteric fracture fragment. Lateral displacement/distraction again measures 1.0 cm at superior margin. Visualized portions of the joints are normal. Excreted contrast present within the urinary bladder. IMPRESSION: Increased medial displacement of lesser trochanteric fracture fragment with otherwise similar appearance of comminuted, distracted, laterally displaced right intertrochanteric fracture fracture. WSN: [id number] Ordering Physician: Babs Montano Dictated By: Tommy Martinez MD Dictated Date/Time: 05/31/22 9:39 am Reviewed By: Tommy Martinez MD Signed By: Tommy Martienz MD Signed Date/Time: 05/31/22 9:39 am Transcribed By: MIRNA Transcribed Date/Time: 05/31/22 9:33 am XR Pelvis and Hip - right Views * [facility] , CIS S: TRANSCRIBE Tommy Martinez MD: VERIFY Event Display: Result: Authored Date: [id number] Femur 2 Views Right, XR Hip w/Pelvis 2-3 View Right Reason: Trauma; Clinical Question(s): Fracture COMPARISON: 05/30/2022 femur x-ray FINDINGS: Comminuted distracted laterally displaced intertrochanteric fracture again demonstrated. There appears to be increased medial displacement of the lesser trochanteric fracture fragment. Lateral displacement/distraction again measures 1.0 cm at superior margin. Visualized portions of the joints are normal. Excreted contrast present within the urinary bladder. IMPRESSION: Increased medial displacement of lesser trochanteric fracture fragment with otherwise similar appearance of comminuted, distracted, laterally displaced right intertrochanteric fracture fracture. WSN: [id number] Ordering Physician: Babs Montano Dictated By: Tommy Martinez MD Dictated Date/Time: 05/31/22 9:39 am Reviewed By: Tommy Martinez MD Signed By: Tommy Martinez MD Signed Date/Time: 05/31/22 9:39 am Transcribed By: MIRNA Transcribed Date/Time: 05/31/22 9:33 am XR Hip - right 2 Views * TRAV Pacheco S: TRANSCGerard Calix MD: VERIFY Event Display: Result: Authored Date: [id number] Hip Comp 2 Views Right, C-Arm > 1 Hour INDICATION: Reason: Right hip fx; ORIF COMPARISONS: 05/31/2022 TECHNIQUE: Fluoroscopy support was provided. There was no radiologist in attendance. FLUOROSCOPY TIME: 2 minutes 25 seconds EXPOSURE: 35.49 mGy (reference air kerma) TECHNOLOGIST TIME: 1 hour 20 minutes FINDINGS: 4 images were submitted showing ORIF of the previously noted intertrochanteric femur fracture. Please refer to operative note for full details. IMPRESSION: See above. WSN: [id number] Ordering Physician: Tobias Hernandez Dictated By: Gerard Espinal MD Dictated Date/Time: 06/01/22 9:37 am Reviewed By: Gerard Espinal MD Signed By: Gerard Espinal MD Signed Date/Time: 06/01/22 9:37 am Transcribed By: MIRNA Transcribed Date/Time: 06/01/22 9:36 am XR Chest AP * Tara CIS S: TRANSCRIShine Feliciano MD: VERIFY Idania Roberto DO: SIGN Event Display: Result: Authored Date: [id number] Chest Single Frontal View Reason: Rib fx; Clinical Question(s): Pneumothorax COMPARISON: CT chest dated 05/31/2022. FINDINGS: LINES AND TUBES: None. LUNGS AND PLEURA: Left basilar atelectasis. Normal pulmonary vascularity. There may be a small left effusion. No pneumothorax. HEART, MEDIASTINUM AND DAISY: Heart is normal in size. Normal mediastinal and hilar contour. BONES AND SOFT TISSUES: Left proximal clavicular fracture. Third-fifth left rib fractures are seen. Remaining known rib fractures are not well evaluated on this examination. IMPRESSION: 1. Multiple left rib and left proximal clavicular fracture. 2. 2. Left basilar atelectasis and possible small left effusion. I have personally reviewed the images and I agree with this report. WSN: [id number] Ordering Physician: Jia Rhoades Dictated By: Idania Roberto DO Dictated Date/Time: 06/01/22 10:22 a Reviewed By: Shine Zepeda MD Signed By: Shine Zepeda MD Signed Date/Time: 06/01/22 10:27 am Transcribed By: MIRNA Transcribed Date/Time: 06/01/22 10:04 am CTA Abdominal vessels and Pelvis vessels W contrast IV * [facility] , CIS S: TRANSCRIBE Idania Roberto DO: SIGN Nick Blanc MD: VERIFY Event Display: Result: Authored Date: [id number] CT Angio Abdomen and Pelvis INDICATION: Reason: bleeding COMPARISON: Multiple priors most recently 06/03/2022 TECHNIQUE: Axial images were obtained from diaphragm through the pelvis during the intravenous administration of iodinated contrast. 100 cc of Omnipaque 300 was administered intravenously. Delayed (venous) images were also acquired for evaluation of the portal veins. Sagittal and coronal maximum intensity projection (MIP) images were reconstructed and rendered in both arterial and venous phases. Weight-based protocol using automatic tube modulation was used to optimize exposure parameters. RADIATION DOSE PARAMETERS: CTDIvol Body: 14.05 mGy, DLP Body: 2081 mGy*cm. VASCULAR FINDINGS: Abdominal aorta: No aortic aneurysm or dissection. Celiac axis: Patent. Superior mesenteric artery: Patent. Right renal artery: Patent. Left renal artery: Patent. Inferior mesenteric artery: Patent. Right common iliac artery: Patent. Right internal iliac artery: Patent. Right external iliac artery: Patent. Right common femoral artery: Patent. Visualized right superficial and deep femoral arteries: Patent. Left common iliac artery: Patent. Left internal iliac artery: Patent. Left external iliac artery: Patent. Left common femoral artery: Patent. Visualized left superficial and deep femoral arteries: Patent. IVC and hepatic veins: Patent. Portal vein: Patent. Recanalized umbilical vein. Splenic vein: Patent. Embolization coils seen in the left upper quadrant. Inferior mesenteric vein: Patent. Iliac and femoral veins: Patent. NONVASCULAR FINDINGS: Visualized Chest: Small bilateral pleural effusions, left greater than right with mild associated atelectasis. The heart is normal in size. No pericardial effusion. Diaphragm: Normal. Liver: Cirrhotic morphology with no suspicious lesions seen. Status post TIPS procedure. Gallbladder: Distended and containing gallstones, but no surrounding inflammation Bile ducts: No biliary ductal dilation. Spleen: Nodular- appearing spleen. Splenomegaly. Pancreas: Normal. Adrenal glands: Normal. Kidneys and ureters: No hydronephrosis, stones, or suspicious masses. Simple appearing renal cysts are noted, requiring no dedicated follow up. Bladder: Underdistended and not well evaluated. Reproductive organs: Unremarkable. Stomach, small bowel, and large bowel: No evidence of obstruction or inflammation. Appendix: Normal. Peritoneum and retroperitoneum: Small amount of perihepatic and right paracolic gutter ascites. Small amount of ascites seen within a right inguinal hernia. Haziness of the mesentery in the midabdomen, unchanged from prior (image 82 series 501). Lymph nodes: No enlarged lymph nodes. Abdominal and pelvic wall: Right gluteal hematoma, not significantly changed in size, measures approximately. 6.7 x 3.9 cm. There is a smaller more superior hematoma, measuring 5 x 2.7 cm. Adjacent to this is a smaller hematoma measuring up to 2 cm. Smaller inferior hematoma measuring 3.5 x 3.1 cm,unchanged. Diffuse edema and stranding seen in the subcutaneous tissue. There is persistent enlargement of theright gluteal muscles. 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 Embolization coils seen in the area of the right superior gluteal artery. No evidence of active contrast extravasation. Streak artifact partially limits evaluation Small fat-containing umbilical hernia. Bilateral fat-containing inguinal hernias. Right inguinal hernia contains a small volume of ascites. Bones: Right intertrochanteric fracture status post ORIF. Multiple lower left rib fractures are redemonstrated. T9 and T10 left transverse process fractures are redemonstrated. IMPRESSION: No evidence of intraperitoneal bleeding. The large right gluteal hematoma measuring up to 6.7 cm, is grossly unchanged. No evidence of active contrast extravasation. New embolization coils are seen in the area of the right gluteal artery. Additional smaller hematomas are seen, slightly increased from prior measuring up to 5 cm. Again seen is a cirrhotic liver morphology with a tiny amount of ascites seen within the abdomen. Recanalized umbilical vein. Stable splenomegaly. Unchanged appearance of mesenteric haziness which may be related to cirrhosis. Stable appearance of multiple lower left rib fractures as well as left T9 and T10 transverse process fractures. I have personally reviewed the images and I agree with this report. WSN: [id number] Ordering Physician: Leigh Ann Hart Dictated By: Idania Roberto DO Dictated Date/Time: 06/06/22 2:05 pm Reviewed By: Nick Blanc MD Signed By: Nick Blanc MD Signed Date/Time: 06/06/22 2:10 pm Transcribed By: MIRNA Transcribed Date/Time: 06/06/22 1:30 pm Patient Care team information Care Team Personnel Name: Alexandra Colmenares RN Position: [facility] ED RN W/OE and Tasks Member Role: Primary Care Nurse Name: Garima Manzano RN Position: [facility] RN Member Role: Primary Care Nurse Name: Malgorzata Marinelli RN Position: [facility] RN Member Role: Primary Care Nurse Name: Joyce Roach RN Position: [facility] RN Member Role: Primary Care Nurse Name: Mary Suazo RN Position: [facility] RN Member Role: Primary Care Nurse Name: Danyel Davis RN Position: [facility] RN Member Role: Primary Care Nurse Name: Yenny Bernstein Position: [facility] RN Member Role: Primary Care Nurse Name: Andres Pressley RN Position: [facility] RN Member Role: Primary Care Nurse Name: Jany Baig DO Position: [facility] Primary Care Physician Member Role: PCP Address: Address: [address] [place] [address] Adult [facility] [place] [address]- Name: Neida Ballard RN Position: S RN Member Role: Primary Care Nurse Name: Kaye Payne RN Position: [facility] RN Member Role: Primary Care Nurse Name: Antoinette KINGSTON Garima Position: [facility] RN Member Role: Primary Care Nurse Name: Malgorzata Austin Position: [facility] RN Member Role: Primary Care Nurse Name: Torrie Hernandez RN Position: [facility] OB RN Member Role: Primary Care Nurse Name: Gretchen Knutson RN Position: [facility] RN Member Role: Primary Care Nurse Name: Aislinn Mckee RN Position: [facility] RN Member Role: Primary Care Nurse Name: Ashley Mcelroy Position: [facility] RN Member Role: Primary Care Nurse Name: Cody Garcia Position: [facility] Associate Professional Member Role: Lifetime Consulting Provider Address: Address: [address] [place] [address] Name: Ge Covarrubias RN Position: [facility] RN Member Role: Primary Care Nurse Name: Orin Elmore RN Position: [facility] ED RN W/OE and Tasks Member Role: Primary Care Nurse Name: Allegra Liu RN Position: [facility] PCO RN Member Role: Primary Care Nurse Name: Shayan Pandya MD Position: [facility] Renal MD Member Role: Lifetime Consulting Physician Address: Address: [address] [place] [address] [address] [facility], [address] Name: Darlene Rodrigez RN [facility] Care Nurse Name: Salvatore HAYES Attending Position: [facility] ED Medicine MD Name: Kristel Castro RN Position: [facility] RN Member Role: Patient Care Provider Name: Kacey Narayanan Position: [facility] ED RN W/OE and Tasks Member Role: Patient Care Provider Name: Cara Romo Position: [facility] ED OA Charge Member Role: ED Associate Name: Maria Esther Collier Position: [facility] ED TA [facility] Member Role: Sales Representative Trainee Name: Destiney Mcgregor Position: [facility] ED TA [facility] Member Role: Patient Care Provider Care Team Related Persons Name: MARLEN BASSETT Address: [address] [address] Name: MARLEN BASSETT Address: [place] [address] Name: NICK BASSETT Name: GEMA BASSETT Address: [place] [address]
--- OUTSIDE RECORDS SUMMARY | 2023-12-15 20:56 | XMS_ITS | Continuity of Care Document ---
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 Name Role Phone Jany Baig DO Primary Care Physician [facility] Date[facility]): 07/09/23 - 08/08/23 [facility] [address] [place], [place] [address] Allergies, Adverse Reactions, Alerts Substance Reaction Severity [...] n 1Result Comment: [facility]: 89762-514-26 2Result Comment: [04/29/2017] [id number] 3Admin Note: FLUARIX 4Admin Note: 3 RDINJ [...] tablet, 2 Refills, Maintenance, 07/28/23 11:06:00 EST, [facility], 175, cm, 07/28/23 9:11:00 EST, Height, 61.3, kg, 07/12/23 23:27:00 EST, Dry Weight Start Date: 07/28/23 Status: Ordered amLODIPine 5 mg oral tablet 1 tablet, By Mouth, Daily, ^1R1., # 30 tablet, 2 Refills, Maintenance, 06/02/23 8:00:00 EST, [facility], 175, cm, 03/22/23 6:50:00 EDT, [...] 07/28/23 11:10:00 EST, Route to Pharmacy Electronically, [facility], Partial fill upon patient request [...] Gm, 12 Refills, Maintenance, 07/28/23 11:06:00 EST, [facility], 28, APPLY TOPICALLY TO AFFECTED [...] Gm, 1 Refills, Maintenance, 07/28/23 12:07:00 EST, [facility], 30, USE 1 SPRAY(S) INTO [...] 07/28/23 12:09:00 EST, Route to Pharmacy Electronically, [facility], 175, cm, 07/28/23 9:11:00 EST, [...] tablet, 3 Refills, Maintenance, 07/28/23 12:10:00 EST, [facility], 175, cm, 07/28/23 9:11:00 EST, Height, 61.3, kg,07/12/23 23:27:00 EST, Dry Weight Start Date: 07/28/23 Status: Ordered lactulose 10 gm/15 ml oral syrup 30 mL = 20 Gm, By Mouth, 3 times a day, for 30 days, # 2,700 mL, 2 Refills, Acute 10/26/23 12:13:00EDT, 07/28/23 12:13:00 EST, Syrup, [facility], Partial fill upon patient request [...] 60 tablet, 11 Refills, Maintenance,07/28/23 12:09:00 EST, [facility], 175, cm, 07/28/23 9:11:00 EST, [...] tablet, 5 Refills, Maintenance, 07/28/23 12:09:00 EST, [facility], 60, 1 tablet By Mouth [...] 07/28/23 12:11:00 EST, Route to Pharmacy Electronically, [facility], 175, cm, 07/28/23 9:11:00EST, Height, [...] 07/28/23 12:12:00 EST, Route to Pharmacy Electronically, [facility], 175, cm, 07/28/23 9:11:00 EST, Height, 61.3, kg, 07/12/23 23:27:00 EST, Dry Weight Start Date: 07/28/23 Status: Ordered spironolactone 25 mg oral tablet 1, tablet, By Mouth, Daily, ^1R2., # 30 tablet, Refills 5, Tot. Refills 5, Maintenance, 04/14/23 12:41:00 EDT, Route to Pharmacy Electronically, [facility], 175, cm, 03/22/23 6:50:00 EDT, Height, 77.5, kg, 03/20/23 11:30:00 EDT, Dry Weight Start Date: 04/14/23 Status: Ordered Tab-A-Jesse oral tablet 1 tablet, By Mouth, Daily, R1., # 30 tablet, 5 Refills, Maintenance, 05/06/23 19:16:00 EST, [facility], 30, TAKE 1 TABLET BY [...] [facility], 175, cm, 12/03/22 11:50:00 EDT, Height,84, kg, 02/12/23 11:30:00 EDT, Dry Weight Start Date: 02/26/23 Status: Ordered traZODone 50 mg oral tablet 2, tablet, By Mouth, Daily at bedtime, ^2R4., # 60 tablet, Refills 5, Tot. Refills 5, Maintenance, 07/28/23 12:12:00 EST, Route to Pharmacy Electronically, [facility], 175, cm, 07/28/23 9:11:00 EST, [...] [facility], 175, cm, 12/03/22 11:50:00 EDT, Height, 88.9, kg, 10/21/22 20:41:00 EDT, Dry Weight Start Date: 02/09/23 Status: Ordered Vitamin B1 100 mg oral tablet 1, tablet, By Mouth, Daily, # 90 tablet, Refills 3, Tot. Refills 3, Maintenance, 07/28/23 12:12:00 EST, Route to Pharmacy Electronically, [facility], 175, cm, 07/28/23 9:11:00 EST, Height, 61.3, kg, 07/12/23 23:27:00 EST, Dry Weight Start Date: 07/28/23 Status: Ordered Vitamin B6 50 mg oral tablet 1, tablet, By Mouth, Daily, R1., # 90 tablet, Refills 4, Maintenance, 11/16/22 13:39:00 EDT, Route to Pharmacy Electronically, [facility], 175, cm, 11/13/22 10:42:00 EDT, Height, 88.9, kg, 10/21/22 20:41:00 EDT, Dry Weight Start Date: 11/16/22 Status: Ordered Vitamin B6 50 mg oral tablet 1, tablet, By Mouth, Daily, R1., # 90 tablet, Refills 4, Tot. Refills 4, Maintenance, 07/28/23 12:11:00 EST, Route to Pharmacy Electronically, [facility], 175, cm, 07/28/23 9:11:00 EST, [...] each, 1 Refills, Maintenance, 07/28/23 14:33:00 EST, [facility], 175, cm, 07/28/23 9:11:00 EST, [...] Care Nurse Name: Alexandra Colmenares RN Position: [facility] ED RN W/OE and Tasks Member Role: Primary Care Nurse Name: Garima Manzano RN Position: [facility] RN Member Role: Primary Care Nurse Name: Malgorzata Marinelli RN Position: [facility] RN Member Role: Primary Care Nurse Name: Joyce Roach RN Position: [facility] ED RN W/OE and Tasks Member Role: Primary Care Nurse Name: Mary Suazo RN Position: [facility] RN Member Role: Primary Care Nurse Name: Lucina Peralta RN Position: [facility] RN Member Role: Primary Care Nurse Name: Maria Esther Craig LPN Position: [facility] RN Member Role: Primary Care Nurse Name: Andres Pressley RN Position: [facility] ED RN W/OE and Tasks Member Role: Primary Care Nurse Name: Jany Baig DO Position: [facility] Physician - Primary Care Member Role: PCP Address: Address: [address] [place] [address] Adult [place] [address]- Name: Kaye Payne RN Position: [facility] RN Member Role: Primary Care Nurse Name: Garima Curry RN Position: [facility] RN Member Role: Primary Care Nurse Name: Malgorzata Austin Position: [facility] RN Member Role: Primary Care Nurse Name: Ibeth Adams RN Position: [facility] RN [...] Care Nurse Name: Ashok Kevin RN Position: [facility] RN Member Role: Primary Care Nurse Name: Cody Garcia Position: [facility] Associate Professional Member Role: Lifetime Consulting Provider Address: Address: [address] [place] [address]- Name: Paige Nascimento RN Position: [facility] RN Member Role: Primary Care Nurse Name: Ge Covarrubias RN Position: [facility] RN Member Role: Primary Care Nurse Name: Orin Elmore RN Position: [facility] ED RN W/OE and Tasks Member Role: Primary Care Nurse Name: Noe LOUIE, Allegra Elliott Position: [facility] AMB Nurse Member Role: Primary Care Nurse Name: Shayan Pandya MD Position: [facility] Renal MD Member Role: Lifetime Consulting Physician Address: Address: [address] [facility] [address] [facility], [place] [address]- Name: Kimberley Pittman RN Position: [facility] RN Member Role: Primary Care Nurse Name: Darlene Rodrigez RN Position: [facility] RN Member Role: Primary Care Nurse Name: Dixie Duke RN Position: [facility] RN Member Role: Primary Care Nurse Name: Kwan Mills RN Position: [facility] ED RN W/OE and Tasks Member Role: Primary Care Nurse Name: Ingrid Verdugo RN Position: [facility] RN Member Role: Primary Care Nurse Name: Monica Rowell RN Position: [facility] RN Member Role: Primary Care Nurse Name: Jimi Fitzpatrick RN Position: [facility] RN Member Role: Primary Care Nurse Care Team Related Persons Name: DUCBRIANWUMARLEN Address: [address] [place] [address] Name: MARLEN CABEZAS Address: [address] [place] [address] Name: NICK CABEZAS Name: GEMA CABEZAS Address: [address] [place] [address] Name: ELTON CHENG Address: home [address] [place] [address]
--- OUTSIDE RECORDS SUMMARY | 2023-12-15 20:56 | XMS_ITS | Continuity of Care Document ---
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 Name Role Phone Jany Baig DO Primary Care Physician [facility]): 07/29/22 - 08/28/22 [facility] [address] [place] [address]- [place] Allergies, Adverse Reactions, Alerts Substance Reaction [...] (oldterm) 08/02/12 Give n 1Result Comment: [facility]: [id number] 2Result Comment: [04/29/2017] [id number] 3Admin Note: FLUARIX 4Admin Note: 3 RDINJ 5Admin Note: #2 Medications acetaminophen 500 mg oral tablet 1 tablet, By Mouth, 4 times a day, PRN NEEDED FOR PAIN, MAX 4, PER DAY (VIAL., # 50 tablet, 11 Refills, Maintenance, 03/13/22 8:37:00 EDT, [facility], 175, cm, 01/06/22 10:34:00 EDT, Height, 78.3, kg, 12/26/21 19:05:00 EDT, Dry Weight Start Date: 03/13/22 Status: Ordered amLODIPine 5 mg oral tablet See Instructions, TAKE 1 TABLET BY MOUTH ONCE A DAY^1R1, # 30 tablet, 5 Refills, Maintenance, 05/13/22 16:24:00 EST, [facility], 175, cm, 04/09/22 15:34:00 EDT, Height, 78.3, kg, 12/26/21 19:05:00 EDT, Dry Weight Start Date: 05/13/22 Status: Ordered baclofen 10 mg oral tablet See Instructions, TAKE 1 TABLET BY MOUTH THREE TIMES DAILY, # 90 tablet, Refills 0, Maintenance, 08/07/22 12:26:00 EST, Instructions Replace Required Details, Route to Pharmacy Electronically, [facility], 176, cm, 08/07/22 11:37:00 EST, Height... Start Date: 08/07/22 Status: Ordered Co Q-10 100 mg oral capsule See Instructions, TAKE 1 CAPSULE BY MOUTH FOUR TIMES DAILY, # 120 capsule, 6 Refills, Maintenance, 08/07/22 12:13:00 EST, [facility], 176, cm, 08/07/22 11:37:00 EST, [...] Gm, 11 Refills, Maintenance, 08/07/22 12:12:00 EST, [facility]/pharmacy #[id number], 30, USE 1 SPRAY(S) INTO EACH NOSTRIL TWICE A DAY, 176, cm,08/07/22 11:37:00 EST, Height, 79.8, kg, 07/31/22 2... Start Date: 08/07/22 Status: Ordered folic acid 1 mg oral tablet 1 mg, 1, tablet, By Mouth, Daily, # 90 tablet, Refills 4, Tot. Refills 4, Maintenance, 10/27/21 10:40:00 EDT, [facility], Partial fill upon patient request if [...] 08/10/22 16:49:00 EST, Route to Pharmacy Electronically, [facility]/pharmacy #[id number], 176, cm, 08/07/22 11:37:00 EST, Height, [...] 08/10/22 16:53:00 EST, Route to Pharmacy Electronically, [id number], 176, cm, 08/07/22 11:37:00 EST, Height, 79.8, kg, 07/31/22 22:40:00 EST, Dry Weight Start Date: 08/10/22 Stop Date: 11/08/22 Status: Ordered hydrOXYzine hydrochloride 25 mg oral tablet 1 TO 2 TABLETS, By Mouth, Daily at bedtime, PRN NEEDED FOR ANXIETY (VIAL), # 60 tablet, 11 Refills, Maintenance, 03/13/22 8:38:00 EDT, [facility], 175, cm, 01/06/22 10:34:00 EDT, Height, 78.3, kg, 12/26/21 19:05:00 EDT, Dry Weight Start Date: 03/13/22 Status: Ordered lactulose 10 gm/15 ml oral syrup See Instructions, TAKE 30ML BY MOUTH THREE TIMES DAILY NEEDED TO ACHEIVE 3-4 BOWL MOVEMENTS PER DAY, # 3,000 mL, 10 Refills, [facility], 30, TAKE 30ML BY MOUTH THREE TIMES DAILY NEEDED TO ACHEIVE 3-4 BOWL MOVEMENTS PER DAY, 174, cm, 02/12... Start Date: 07/02/21 Status: Ordered Lidoderm 5% film 1 patch, Topically, Daily, remove patches after 12 hours NSAIDS contraindicated High dose tylenol contraindicated remove patches after 12 hours Rib fracture, # 30 patch, 5 Refills, Maintenance, 08/07/22 12:09:00 EST, [facility]/pharmacy #[id number], Partial f... Start Date: 08/07/22 Status: Ordered magnesium oxide 400 mg oral tablet 1 tablet, By Mouth, 2 times a day, # 60 tablet, 11 Refills, Maintenance, 03/13/22 8:37:00 EDT, [facility], 175, cm, 01/06/22 10:34:00 EDT, Height, 78.3, kg, 12/26/21 19:05:00 EDT, Dry Weight Start Date: 03/13/22 Status: Ordered Melatonin 3 mg oral tablet 1 tablet, By Mouth, Daily at bedtime, PRN NEEDED FOR INSOMNIA (PACKAGE IN TRAY)^1R4, # 60 tablet, 5 Refills, Maintenance, 06/12/22 18:11:00 EST, [facility], 60, TAKE 1 TABLET BY [...] 08/07/22 12:14:00 EST, Route to Pharmacy Electronically, [facility]/pharmacy #[id number], Partial fill upon patient requestif the prescription is for a schedule II opioid remedios... Start Date: 08/07/22 Stop Date: 02/03/23 Status: Ordered Potassium Chloride (Eqv-K-Tab) 20 mEq oral tablet, extended release 2 tablet, By Mouth, Daily, # 180 tablet, 1 Refills, Maintenance, 05/13/22 9:48:00 EST, [facility], 175, cm, 04/09/22 15:34:00 EDT, Height, 78.3, kg, 12/26/21 19:05:00 EDT, Dry Weight Start Date: 05/13/22 Stop Date: 11/09/22 Status: Ordered pyridoxine 50 mg oral tablet 50 mg, 1, tablet, By Mouth, Daily, for 90 days, # 90 tablet, Refills 4, Tot. Refills 4, Acute 01/15/23 11:42:00 EDT, 10/22/21 11:42:00 EDT, Route to Pharmacy Electronically, [facility], Partial fill upon patient request [...] 90 tablet, 9 Refills, 08/07/22 12:27:00 EST, [facility]/pharmacy #[id number], 28, 1tablet By Mouth Daily, 176, cm, 08/07/22 11:37:00 EST, Height, 79.8, kg, 07/31/22 22:40:00 EST, DryWeight Start Date: 08/07/22 Status: Ordered tranexamic acid 650 mg oral tablet 1 tablet = 650 mg, By Mouth, Daily, # 19 tablet, 0 Refills, Maintenance, 08/01/22 16:17:00 EST, Tablet, [facility]/pharmacy #[id number], Partial fill upon patient request if the prescription is for a schedule II opioid drug., 176, cm, 08/01/22 15:52:00 EST, Height... Start Date: 08/01/22 Stop Date: 08/20/22 Status: Ordered traZODone 50 mg oral tablet 2 TO 3 TABLETS, By Mouth, Daily at bedtime, #28 VIAL)^2R4., # 90 tablet, Refills 5, Maintenance, 06/12/22 18:11:00 EST, Route to Pharmacy Electronically, [facility], 179, cm, 06/08/22 7:37:00EST, Height, 84, kg, 06/01/22 12:27:00 EST, Dry Weight Start Date: 06/12/22 Status: Ordered Vitamin B1 100 mg oral tablet 1, tablet, By Mouth, Daily, # 90 tablet, Refills 3, Maintenance, 03/13/22 8:37:00 EDT, Route to Pharmacy Electronically, [facility], 175, cm, 01/06/22 10:34:00 EDT, Height, 78.3, kg, 12/26/2218:05:00 EDT, Dry Weight Start Date: 03/13/22 Status: Ordered Xifaxan 550 mg oral tablet 1 tablet, By Mouth, 2 times a day, ^1R1,1R4., # 60 tablet, 1 Refills, Maintenance, 06/12/22 18:10:00 EST, [facility], 179, cm, 06/08/22 7:37:00 EST, Height, [...] Physician Member Role: PCP Address: Address: [address] [place] [address] Adult [place] [address]- Name: Neida Ballard RN Position: [facility] [...] Role: Lifetime Consulting Provider Address: Address: [address] [place] [id number]- Name: Ge Covarrubias RN Position: [facility] [...] Role: Lifetime Consulting Physician Address: Address: [address] [facility] [address] [facility], [place] [address]- Name: Darlene Rodrigez RN Position: [facility] RN Member Role: Primary Care Nurse Name: Kwan Mills RN Position: [facility] RN Member Role: Primary Care Nurse Name: Dolores Can RN Position: [facility] RN Member Role: Primary Care Nurse Name: Kim Rendon RN Position: [facility] RN Member Role: Primary Care Nurse Name: Monica Rowell RN Position: [facility] RN Member Role: Primary Care Nurse Care Team Related Persons Name: MARLEN CABEZAS Address: [address] [place] [address] Name: MARLEN CABEZAS Address: home [address] [place] [address] Name: NICK CABEZAS Name: GEMA CABEZAS Address: home [address] [place] [address]
--- OUTSIDE RECORDS SUMMARY | 2023-12-15 20:57 | XMS_ITS | Continuity of Care Document ---
Author Organization [facility] Address [address] [place] [address]- Care Team Providers Care Birth Attendant Name Role Phone Jany Baig DO Primary Care Physician Encounter [facility] Date(s): 02/09/23 - 03/11/23 [facility] [address] [place], [place] [address] Allergies, Adverse Reactions, Alerts Substance [...] Comment: [facility]: [id number] 2Result Comment: [04/29/2017] [id number] 3Admin Note: FLUARIX 4Admin Note: 3 RDINJ 5Admin Note: #2 Medications acamprosate 333 mg oral delayed release tablet 1 tablet = 333 mg, By Mouth, 3 times a day, # 42 tablet, 4 Refills, Maintenance, 11/05/22 11:31:00 EDT, [facility] Partial fill upon patient request if the prescription is for a schedule II opioid drug., 175, cm, 11/05/22 10:21:00... Start Date: 11/05/22 Stop Date: 01/14/23 Status: Ordered amLODIPine 5 mg oral tablet 1 tablet, By Mouth, Daily, ^1R1., # 30 tablet, 5 Refills, Maintenance, 12/22/22 7:20:00 EDT, [facility], 175, cm, 12/03/22 11:50:00 EDT, Height, 88.9, kg, 10/21/22 20:41:00 EDT, Dry Weight Start Date: 12/22/22 Status: Ordered baclofen 10 mg oral tablet See Instructions, TAKE ONE TABLET BY MOUTH THREE TIMES A DAY ^1R1,1R2,1R4, # 90 tablet, Refills 5, Tot. Refills 5, Maintenance, 01/14/23 17:55:00 EDT, Instructions Replace Required Details, Route to Pharmacy Electronically, [facility], 175, cm... Start Date: 01/14/23 Status: Ordered calcium (as carbonate)-vitamin D 500 mg-400 intl units oral tablet 1 tablet, By Mouth, Daily, ^1R1., # 28 tablet, 0 Refills, Maintenance, 12/01/22 16:12:00 EDT, [facility], 28, 1 tablet By Mouth Daily,Instr:^1R1., 175, [...] capsule, 6 Refills, Maintenance, 12/03/22 12:13:00 EDT[facility], 175, cm, 12/03/22 11:50:00 EDT, Height, [...] Gm, 0 Refills, Maintenance, 02/26/23 10:12:00 EDT, [facility], 28, APPLY TOPICALLY TO [...] Gm, 11 Refills, Maintenance, 08/07/22 12:12:00 EST, [facility]/pharmacy #[id number], 30, USE 1 SPRAY(S) INTO EACH NOSTRIL TWICE A DAY, 176, cm,08/07/22 11:37:00 EST, Height, 79.8, kg, 07/31/22 2... Start Date: 08/07/22 Status: Ordered folic acid 1 mg oral tablet 1, tablet, By Mouth, Daily, R1., # 30 tablet, Refills 5, Tot. Refills 5, Maintenance, 10/06/22 4:59:00 EDT, Route to Pharmacy Electronically, [facility], 176, cm, 09/07/22 8:56:00 EDT, Height, 82.1, kg, 09/07/22 8:59:00 EDT, Dry Weight Start Date: 10/06/22 Status: Ordered furosemide 20 mg oral tablet 1, tablet, By Mouth, Daily, R1., # 30 tablet, Refills 5, Tot. Refills 5, Maintenance, 09/03/22 14:50:00 EDT, Route to Pharmacy Electronically, [facility], 169, cm, 09/03/22 14:21:00 EDT, Height, 69, kg, 08/16/22 1:04:00 EST, Dry Weight Start Date: 09/03/22 Status: Ordered furosemide 20 mg oral tablet 20 mg, 1, tablet, By Mouth, Every other day, # 30 tablet, Refills 3, Tot. Refills 3, Maintenance, 01/28/23 12:31:00 EDT, Route to Pharmacy Electronically, [facility], Partial fill upon patient request if the prescription is for a schedule II o... Start Date: 01/28/23 Status: Ordered gabapentin 300 mg oral capsule 300 mg, 1, capsule, By Mouth, Daily at bedtime, note dose/frequency change, # 90 capsule, Refills 4, Tot. Refills 4, Maintenance, 11/05/22 11:05:00 EDT, Route to Pharmacy Electronically, [facility], 175, cm, 11/05/22 10:21:00 EDT, Height, 88.9... Start Date: 11/05/22 Stop Date: 01/29/24 Status: Ordered hydrOXYzine hydrochloride 10 mg oral tablet 2 tablet, By Mouth, 2 times a day, PRN NEEDED FOR ANXIETY (VIAL), # 30 tablet, 3 Refills, Maintenance, 12/22/22 16:57:00 EDT, [facility], 175, cm, 12/03/22 11:50:00 EDT, Height, 88.9, kg, 10/21/22 20:41:00 EDT, Dry Weight Start Date: 12/22/22 Status: Ordered lactulose 10 gm/15 ml oral syrup 15 mL, By Mouth, 2 times a day, # 120 mL, 6 Refills, Maintenance, 02/26/23 10:11:00 EDT, [facility], 4, TAKE 15ML BY MOUTH TWO TIMES A DAY, 175, cm, 12/03/22 11:50:00 EDT, Height, 84, kg, 02/12/23 11:30:00 EDT, Dry Weight Start Date: 02/26/23 Status: Ordered Lidoderm 5% film 1 patch, Topically, Daily, remove patches after 12 hours NSAIDS contraindicated High dose tylenol contraindicated remove patches after 12 hours Nueropathy, # 30 patch, 5 Refills, Maintenance, 11/05/22 11:04:00 EDT, [facility], Partial klaudia... Start Date: 11/05/22 Status: Ordered magnesium oxide 400 mg oral tablet See Instructions, TAKE 1 TABLET BY MOUTH TWICE A DAY^1R1,1R4, # 60 tablet, 11 Refills, Maintenance,01/28/23 12:31:00 EDT, [facility], 175, cm, 12/03/22 11:50:00 EDT, Height, 88.9, kg, 10/21/22 20:41:00 EDT, Dry Weight Start Date: 01/28/23 Status: Ordered Melatonin 3 mg oral tablet 1 tablet, By Mouth, Daily at bedtime, PRN NEEDED FOR INSOMNIA (PACKAGE IN TRAY)^1R4, # 60 tablet, 5 Refills, Maintenance, 06/12/22 18:11:00 EST, [facility], 60, TAKE 1 TABLET [...] 02/26/23 10:11:00 EDT, Route to Pharmacy Electronically, [facility], 175, cm, 12/03/22 11:50:00 EDT, Height, [...] 11/05/22 11:31:00 EDT, Route to Pharmacy Electronically, [facility], Partial fill upon patient request if the prescription is for a schedule II opioid drug... Start Date: 11/05/22 Status: Ordered Tab-A-Jesse oral tablet 1 tablet, By Mouth, Daily, # 90 tablet, 1 Refills, 12/01/22 12:59:00 EDT, [facility], 28, 1tablet By Mouth Daily, 175, cm, 11/13/22 10:42:00 EDT, Height, 88.9, kg, 10/21/22 20:41:00 EDT, DryWeight Start Date: 12/01/22 Status: Ordered traZODone 50 mg oral tablet 2, tablet, By Mouth, Daily at bedtime, ^2R4., # 60 tablet, Refills 5, Maintenance, 02/26/23 10:11:00 EDT, Route to Pharmacy Electronically, [facility], 175, cm, 12/03/22 11:50:00 EDT, Height,84, [...] 02/09/23 23:18:00 EDT, Route to Pharmacy Electronically, [facility], 175, cm, 12/03/22 11:50:00 EDT, Height, 88.9, kg, 10/21/22 20:41:00 EDT, Dry Weight Start Date: 02/09/23 Status: Ordered Vitamin B6 50 mg oral tablet 1, tablet, By Mouth, Daily, R1., # 90 tablet, Refills 4, Maintenance, 11/16/22 13:39:00 EDT, Route to Pharmacy Electronically, [facility], 175, cm, 11/13/22 10:42:00 EDT, Height, [...] tablet, 3 Refills, Maintenance, 02/26/23 10:11:00 EDT, [facility], 175, cm, 12/03/22 11:50:00 EDT, Height, [...] Name: Alexandra Colmenares RN Position: [facility] ED RN W/OE and Tasks Member Role: Primary Care Nurse Name: Garima Manzano RN Position: S RN Member Role: Primary Care Nurse Name: Malgorzata Marinelli RN Position: S RN Member Role: Primary Care Nurse Name: Joyce Roach RN Position: [facility] RN Member Role: Primary Care Nurse Name: Mary Suazo RN Position: [facility] RN Member Role: Primary Care Nurse Name: Andres Pressley RN Position: [facility] ED RN W/OE and Tasks Member Role: Primary Care Nurse Name: Jany Baig DO Position: [facility] Physician - Primary Care Member Role: PCP Address: Address: [address] [place] [address] Adult [facility] [place] [address]- Name: Neida Ballard RN Position: [facility] RN Member Role: Primary Care Nurse Name: Kaye Payne RN Position: [facility] RN Member Role: Primary Care Nurse Name: Garima Hutchinson Position: [facility] RN Member Role: Primary Care Nurse Name: Malgorzata Austin Position: [facility] RN Member Role: Primary Care Nurse Name: Ibeth Adams RN Position: [facility] RN Member Role: Primary Care Nurse Name: Torrie Hernandez RN Position: [facility] OB RN Member Role: Primary Care Nurse Name: Gretchen Knutson RN Position: [facility] SN RN Member Role: Primary Care Nurse Name: Aislinn Mckee RN Position: [facility] RN Member Role: Primary Care Nurse Name: Ashley Mcelroy Position: [facility] RN Member Role: Primary Care Nurse Name: Cody Garcia Position: [facility] Associate Professional Member Role: Lifetime Consulting Provider Address: Address: [address] [place] [address]- Name: Ge Covarrubias RN Position: [facility] RN Member Role: Primary Care Nurse Name: Orin Elmore RN Position: [facility] ED RN W/OE and Tasks Member Role: Primary Care Nurse Name: Allegra Liu RN Position: [facility] AMB Nurse Member Role: Primary Care Nurse Name: Shayan Pandya MD Position: [facility] Renal MD Member Role: Lifetime Consulting Physician Address: Address: [address] [place] [address] [address] [facility], [place] [address]- Name: Darlene Rodrigez RN Position: [facility] RN Member Role: Primary Care Nurse Name: Kwan Mills RN Position: [facility] RN Member Role: Primary Care Nurse Name: Dolores Can RN Position: S RN Member Role: Primary Care Nurse Name: Monica Rowell RN Position: S RN Member Role: Primary Care Nurse Name: Jimi Fitzpatrick RN Position: [facility] RN Member Role: Primary Care Nurse Care Team Related Persons Name: CAWUMARLEN Address: [place] [address] Name: MARLEN CABEZAS Address: [place] [address] Name: NICK CABEZAS Name: GEMA CABEZAS Address: [place] [address]
--- OUTSIDE RECORDS SUMMARY | 2023-12-15 20:57 | XMS_ITS | Continuity of Care Document ---
Author Organization [facility] Address [address] [place] [address]- Care Team Providers Care Van Driver Helper Name Role Phone Jany Baig DO Primary Care Physician Encounter [facility] Date(s): 12/21/22 - 01/20/23 [facility] [address] [place] [address]- Allergies, Adverse Reactions, Alerts Substance Reaction Severity [...] Give n 1Result Comment: [facility]: [id number] 2Result Comment: [04/29/2017] [id number] 3Admin Note: FLUARIX 4Admin Note: 3 RDINJ 5Admin Note: #2 Medications acamprosate 333 mg oral delayed release tablet 1 tablet = 333 mg, By Mouth, 3 times a day, # 42 tablet, 4 Refills, Maintenance, 11/05/22 11:31:00 EDT, EC Tablet, [facility], Partial fill upon patient request if the prescription is for a schedule II opioid drug., 175, cm, 11/05/22 10:21:00... Start Date: 11/05/22 Stop Date: 01/14/23 Status: Ordered amLODIPine 5 mg oral tablet 1 tablet, By Mouth, Daily, ^1R1., # 30 tablet, 5 Refills, Maintenance, 12/22/22 7:20:00 EDT, [facility], 175, cm, 12/03/22 11:50:00 EDT, Height, 88.9, kg, 10/21/22 20:41:00 EDT, Dry Weight Start Date: 12/22/22 Status: Ordered baclofen 10 mg oral tablet See Instructions, TAKE ONE TABLET BY MOUTH THREE TIMES A DAY ^1R1,1R2,1R4, # 90 tablet, Refills 5, Tot. Refills 5, Maintenance, 01/14/23 17:55:00 EDT, Instructions Replace Required Details, [facility] to Pharm[facility], [facility], 175, cm... Start Date: 01/14/23 Status: Ordered calcium (as carbonate)-vitamin D 500 mg-400 intl units oral tablet 1 tablet, By Mouth, Daily, ^1R1., # 28 tablet, 0 Refills, Maintenance, 12/01/22 16:12:00 EDT, [facility], 28, 1 [...] capsule, 6 Refills, Maintenance, 12/03/22 12:13:00 EDT, [facility], 175, cm, 12/03/22 11:50:00 EDT, [...] Gm, 0 Refills, Maintenance, 12/22/22 16:58:00 [facility], 13, APPLY TOPICALLY FOUR TIMES [...] 11 Refills, Maintenance, 08/07/22 12:12:00 EST, [facility] #[id number], 30, USE 1 SPRAY(S) INTO EACH NOSTRIL TWICE A DAY, 176, cm,08/07/22 11:37:00 EST, Height, 79.8, kg, 07/31/22 2... Start Date: 08/07/22 Status: Ordered folic acid 1 mg oral tablet 1, tablet, By Mouth, Daily, R1., # 30 tablet, Refills 5, Tot. Refills 5, Maintenance, 10/06/22 4:59:00 EDT, Route to Pharmacy Electronically, [facility], 176, cm, 09/07/22 8:56:00 EDT, [...] 09/03/22 14:50:00 EDT, Route to Pharmacy Electronically, [facility], 169, cm, 09/03/22 14:21:00 EDT, Height, 69, kg, 08/16/22 1:04:00 EST, Dry Weight Start Date: 09/03/22 Status: Ordered gabapentin 300 mg oral capsule 300 mg, 1, capsule, By Mouth, Daily at bedtime, note dose/frequency change, # 90 capsule, Refills 4, Tot. Refills 4, Maintenance, 11/05/22 11:05:00 EDT, Route to Pharmacy Electronically, [facility], 175, cm, 11/05/22 10:21:00 EDT, Height, 88.9... Start Date: 11/05/22 Stop Date: 01/29/24 Status: Ordered hydrOXYzine hydrochloride 10 mg oral tablet 2 tablet, By Mouth, 2 times a day, PRN NEEDED FOR ANXIETY (VIAL), # 30 tablet, 3 Refills, Maintenance, 12/22/22 16:57:00 EDT, [facility], 175, cm, 12/03/22 11:50:00 EDT, Height, 88.9, kg, 10/21/22 20:41:00 EDT, Dry Weight Start Date: 12/22/22 Status: Ordered lactulose 10 gm/15 ml oral syrup 15 mL, By Mouth, 2 times a day, # 120 mL, 6 Refills, Maintenance, 09/22/22 12:15:00 EDT, [facility], 4, TAKE 15ML BY MOUTH TWO TIMES A DAY, 176, cm, 09/07/22 8:56:00 EDT, Height, 82.1, kg, 09/07/22 8:59:00 EDT, Dry Weight Start Date: 09/22/22 Status: Ordered Lidoderm 5% film 1 patch, Topically, Daily, remove patches after 12 hours NSAIDS contraindicated High dose tylenol contraindicated remove patches after 12 hours Nueropathy, # 30 patch, 5 Refills, Maintenance, 11/05/22 11:04:00 EDT, [facility], Partial klaudia... Start Date: 11/05/22 Status: Ordered Melatonin 3 mg oral tablet 1 tablet, By Mouth, Daily at bedtime, PRN NEEDED FOR INSOMNIA (PACKAGE IN TRAY)^1R4, # 60 tablet, 5 Refills, Maintenance, 06/12/22 18:11:00 EST, [facility], 60, TAKE 1 TABLET BY MOUTH [...] 09/03/22 14:53:00 EDT, Route to Pharmacy Electronically, [facility], Partial fill upon patient request if [...] 11/05/22 11:31:00 EDT, Route to Pharmacy Electronically, [facility], Partial fill upon patient request if the prescription is for a schedule II opioid drug... Start Date: 11/05/22 Status: Ordered Tab-A-Jesse oral tablet 1 tablet, By Mouth, Daily, # 90 tablet, 1 Refills, 12/01/22 12:59:00 EDT, [facility], 28, 1tablet By Mouth Daily, 175, cm, 11/13/22 10:42:00 EDT, Height, 88.9, kg, 10/21/22 20:41:00 EDT, DryWeight Start Date: 12/01/22 Status: Ordered traZODone 50 mg oral tablet 2 tablets, By Mouth, Daily at bedtime, # 60 each, Refills 5, Tot. Refills 5, Maintenance, 09/03/22 17:13:00 EDT, Route to Pharmacy Electronically, [facility], 169, cm, 09/03/22 14:21:00 EDT, Height, [...] 03/13/22 8:37:00 EDT, Route to Pharmacy Electronically, [facility], 175, cm, 01/06/22 10:34:00 EDT, Height, 78.3, kg, 12/26/2218:05:00 EDT, Dry Weight Start Date: 03/13/22 Status: Ordered Vitamin B6 50 mg oral tablet 1, tablet, By Mouth, Daily, R1., # 90 tablet, Refills 4, Maintenance, 11/16/22 13:39:00 EDT, Route to Pharmacy Electronically, [facility], 175, cm, 11/13/22 10:42:00 EDT, Height, [...] tablet, 3 Refills, Maintenance, 10/01/22 15:19:00 EDT, [facility], 176, cm, 09/07/22 8:56:00 EDT, Height, [...] Team Personnel Name: Alexandra Colmenares RN Position: [facility] ED RN W/OE and Tasks Member Role: Primary Care Nurse Name: Garima Manzano RN Position: [facility] RN Member Role: Primary Care Nurse Name: Malgorzata Marinelli RN Position: S RN Member Role: Primary Care Nurse Name: Joyce Roach RN Position: [facility] RN Member Role: Primary Care Nurse Name: Mary Suazo RN Position: [facility] RN Member Role: Primary Care Nurse Name: Andres Perssley RN Position: [facility] RN Member Role: Primary Care Nurse Name: Jany Baig DO Position: [facility] Physician - Primary Care Member Role: PCP Address: Address: [address] [place] [address] Adult & [place] [address]- Name: Neida Ballard RN Position: [facility] RN Member Role: Primary Care Nurse Name: Kaye Payne RN Position: [facility] RN Member Role: Primary Care Nurse Name: Garima Hutchinson Position: [facility] RN Member Role: Primary Care Nurse Name: Malgorzata Austin Position: [facility] RN Member [...] Primary Care Nurse Name: Ashley Mcelroy Position: [facility] RN Member Role: Primary Care Nurse Name: Cody Garcia Position: [facility] Associate Professional Member Role: Lifetime Consulting Provider Address: Address: [address] [place] [address]- Name: Ge Covarrubias RN Position: [facility] RN Member Role: Primary Care Nurse Name: Orin Elmore RN Position: [facility] ED RN W/OE and Tasks Member Role: Primary Care Nurse Name: Noe LOUIE, Allegra Elliott Position: [facility] AMB Nurse Member Role: Primary Care Nurse Name: Shayan Pandya MD Position: [facility] Renal MD Member Role: Lifetime Consulting Physician Address: Address: [address] [facility] [address] [facility] [place] [address]- Name: Darlene Rodrigez RN Position: [facility] RN Member Role: Primary Care Nurse Name: Kwan Mills RN Position: [facility] RN Member Role: Primary Care Nurse Name: Dolores Can RN Position: [facility] RN Member Role: Primary Care Nurse Name: Monica Rowell RN Position: [facility] RN Member Role: Primary Care Nurse Name: Jimi Fitzpatrick RN Position: [facility] RN Member Role: Primary Care Nurse Care Team Related Persons Name: DUCBRIANWU MARLEN Address: [address] [place] [id number] Name: MARLEN CABEZAS Address: [address] [place] [address] Name: NICK CABEZAS Name: GMEA CABEZAS Address: [address] [place] [address]
--- OUTSIDE RECORDS SUMMARY | 2023-12-15 20:57 | XMS_ITS | Continuity of Care Document ---
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 Name Role Phone Jany Baig DO Primary Care Physician En[place] [facility] [place] Date(s): 08/24/22 - 08/31/22 [facility] [address] [place] [address] Drive, [address] [place] [address]- Attending Physician: Norbert Sharpe MD Referring Physician: Jany Baig DO Allergies, [...] [facility]: [id number] 2Result Comment: [04/29/2017] [id number] 3Admin Note: FLUARIX 4Admin Note: 3 RDINJ 5Admin Note: #2 Medications acetaminophen 500 mg oral tablet 1 tablet, By Mouth, 4 times a day, PRN NEEDED FOR PAIN, MAX 4, PER DAY (VIAL., # 50 tablet, 11 Refills, Maintenance, 03/13/22 8:37:00 EDT, [facility], 175, cm, 01/06/22 10:34:00 EDT, Height, 78.3, kg, 12/26/21 19:05:00 EDT, Dry Weight Start Date: 03/13/22 Status: Ordered amLODIPine 5 mg oral tablet See Instructions, TAKE 1 TABLET BY MOUTH ONCE A DAY^1R1, # 30 tablet, 5 Refills, Maintenance, 05/13/22 16:24:00 EST, [facility], 175, cm, 04/09/22 15:34:00 EDT, Height, 78.3, kg, 12/26/21 19:05:00 EDT, Dry Weight Start Date: 05/13/22 Status: Ordered baclofen 10 mg oral tablet See Instructions, TAKE 1 TABLET BY MOUTH THREE TIMES DAILY, # 90 tablet, Refills 0, Maintenance, 08/07/22 12:26:00 EST, Instructions Replace Required Details, Route to Pharmacy Electronically, [facility], 176, cm, 08/07/22 11:37:00 EST, Height... Start Date: 08/07/22 Status: Ordered Co Q-10 100 mg oral capsule See Instructions, TAKE 1 CAPSULE BY MOUTH FOUR TIMES DAILY, # 120 capsule, 6 Refills, Maintenance, 08/07/22 12:13:00 EST, [facility], 176, cm, 08/07/22 11:37:00 EST, [...] 11 Refills, Maintenance, 08/07/22 12:12:00 EST, [facility]/pharmacy #[id number], 30, USE 1 SPRAY(S) INTO EACH NOSTRIL TWICE A DAY, 176, cm,08/07/22 11:37:00 EST, Height, 79.8, kg, 07/31/22 2... Start Date: 08/07/22 Status: Ordered folic acid 1 mg oral tablet 1 mg, 1, tablet, By Mouth, Daily, # 90 tablet, Refills 4, Tot. Refills 4, Maintenance, 10/27/21 10:40:00 EDT, Route to Pharmacy Electronically, [facility], Partial fill upon patient request if the prescription is for a schedule II opioid drug.... Start Date: 10/27/21 Stop Date: 01/20/23 Status: Ordered furosemide 20 mg oral tablet See Instructions, TAKE 1 TABLET BY MOUTH ONCE A DAY^1R1, # 30 tablet, Refills 2, Maintenance, 08/07/22 12:27:00 EST, Instructions Replace Required Details, Route to Pharmacy Electronically, [facility], 176, cm, 08/07/22 11:37:00 EST, Height, 7... Start Date: 08/07/22 Status: Ordered furosemide 20 mg oral tablet 1, tablet, By Mouth, Daily, R1., # 30 tablet, Refills 5, Tot. Refills 5, Maintenance, 08/10/22 16:49:00 EST, Route to Pharmacy Electronically, [facility]/pharmacy #[id number], 176, cm, 08/07/22 11:37:00 EST, [...] 08/10/22 16:53:00 EST, Route to Pharmacy Electronically, [facility] STORE [id number], 176, cm, 08/07/22 11:37:00 EST, Height, 79.8, kg, 07/31/22 22:40:00 EST, Dry Weight Start Date: 08/10/22 Stop Date: 11/08/22 Status: Ordered hydrOXYzine hydrochloride 25 mg oral tablet 1 TO 2 TABLETS, By Mouth, Daily at bedtime, PRN NEEDED FOR ANXIETY (VIAL), # 60 tablet, 11 Refills, Maintenance, 03/13/22 8:38:00 EDT, [facility], 175, cm, 01/06/22 10:34:00 EDT, Height, 78.3, kg, 12/26/21 19:05:00 EDT, Dry Weight Start Date: 03/13/22 Status: Ordered lactulose 10 gm/15 ml oral syrup See Instructions, TAKE 30ML BY MOUTH THREE TIMES DAILY NEEDED TO ACHEIVE 3-4 BOWL MOVEMENTS PER DAY, # 3,000 mL, 10 Refills, [facility], 30, TAKE 30ML BY MOUTH THREE TIMES DAILY NEEDED TO ACHEIVE 3-4 BOWL MOVEMENTS PER DAY, 174, cm, 02/12... Start Date: 07/02/21 Status: Ordered Lidoderm 5% film 1 patch, Topically, Daily, remove patches after 12 hours NSAIDS contraindicated High dose tylenol contraindicated remove patches after 12 hours Rib fracture, # 30 patch, 5 Refills, Maintenance, 08/07/22 12:09:00 EST, [facility]/pharmacy #[id number], Partial f... Start Date: 08/07/22 Status: Ordered magnesium oxide 400 mg oral tablet 1 tablet, By Mouth, 2 times a day, # 60 tablet, 11 Refills, Maintenance, 03/13/22 8:37:00 EDT, [facility], 175, cm, 01/06/22 10:34:00 EDT, Height, 78.3, kg, 12/26/21 19:05:00 EDT, Dry Weight Start Date: 03/13/22 Status: Ordered Melatonin 3 mg oral tablet 1 tablet, By Mouth, Daily at bedtime, PRN NEEDED FOR INSOMNIA (PACKAGE IN TRAY)^1R4, # 60 tablet, 5 Refills, Maintenance, 06/12/22 18:11:00 EST, [facility], 60, TAKE 1 TABLET BY [...] 12:14:00 EST, Route to Pharmacy Electronically, [facility]/pharmacy #[id number], Partial fill upon patient requestif the prescription is for a schedule II opioid remedios... Start Date: 08/07/22 Stop Date: 02/03/23 Status: Ordered Potassium Chloride (Eqv-K-Tab) 20 mEq oral tablet, extended release 2 tablet, By Mouth, Daily, # 180 tablet, 1 Refills, Maintenance, 05/13/22 9:48:00 EST, [facility], 175, cm, 04/09/22 15:34:00 EDT, Height, 78.3, kg, 12/26/21 19:05:00 EDT, Dry Weight Start Date: 05/13/22 Stop Date: 11/09/22 Status: Ordered pyridoxine 50 mg oral tablet 50 mg, 1, tablet, By Mouth, Daily, for 90 days, # 90 tablet, Refills 4, Tot. Refills 4, Acute 01/15/23 11:42:00 EDT, 10/22/21 11:42:00 EDT, Route to Pharmacy Electronically, [facility], Partial fill upon patient request if [...] tablet, 9 Refills, 08/07/22 12:27:00 EST, [facility]/pharmacy #[id number], 28, 1tablet By Mouth Daily, 176, cm, 08/07/22 11:37:00 EST, Height, 79.8, kg, 07/31/22 22:40:00 EST, DryWeight Start Date: 08/07/22 Status: Ordered tranexamic acid 650 mg oral tablet 1 tablet = 650 mg, By Mouth, Daily, # 19 tablet, 0 Refills, Maintenance, 08/01/22 16:17:00 EST, Tablet, [facility]/pharmacy #[id number], Partial fill upon patient request if the prescription is for a schedule II opioid drug., 176, cm, 08/01/22 15:52:00 EST, Height... Start Date: 08/01/22 Stop Date: 08/20/22 Status: Ordered traZODone 50 mg oral tablet 2 TO 3 TABLETS, By Mouth, Daily at bedtime, #28 VIAL)^2R4., # 90 tablet, Refills 5, Maintenance, 06/12/22 18:11:00 EST, Route to Pharmacy Electronically, [facility], 179, cm, 06/08/22 7:37:00EST, Height, 84, kg, 06/01/22 12:27:00 EST, Dry Weight Start Date: 06/12/22 Status: Ordered Vitamin B1 100 mg oral tablet 1, tablet, By Mouth, Daily, # 90 tablet, Refills 3, Maintenance, 03/13/22 8:37:00 EDT, Route to Pharmacy Electronically, [facility], 175, cm, 01/06/22 10:34:00 EDT, Height, 78.3, kg, 12/26/2218:05:00 EDT, Dry Weight Start Date: 03/13/22 Status: Ordered Xifaxan 550 mg oral tablet 1 tablet, By Mouth, 2 times a day, ^1R1,1R4., # 60 tablet, 1 Refills, Maintenance, 06/12/22 18:10:00 EST, [facility], 179, cm, 06/08/22 7:37:00 EST, Height, [...] oldest [Reference Range]: 1 Height 169 cm (08/24/22 8:58 AM) Weight 69 kg (08/24/22 8:58 AM) Body Mass Index [18.5-24.99 kg/m2] 24.16 kg/m2 (08/24/22 8:58 AM) Social History Social History Type Response [...] Jany Baig DO Position: [facility] Primary Care Physician Member Role: PCP Address: Address: [address] [place] [address] Adult & Pediatric Medicine [place], [place] [address] Name: Neida Ballard RN Position: [facility] [...] Role: Lifetime Consulting Provider Address: Address: [address] [place] [address]- Name: Ge Covarrubias RN Position: [facility] RN Member Role: Primary Care Nurse Name: Orin Elmore RN Position: [facility] ED RN W/OE and Tasks Member Role: Primary Care Nurse Name: Allegra Liu RN Position: [facility] PCO RN Member Role: Primary Care Nurse Name: Shayan Pandya MD Position: [facility] Renal MD Member Role: Lifetime Consulting Physician Address: Address: [address] [place] [address] [address] [facility] [place] [address]- Name: Darlene Rodrigez RN Position: [facility] [...] Persons Name: MARLEN CABEZAS Address: [address] [place] [address] Name: RAULITO MARLEN Address: [address] [place] [address] Name: CAWU NICK Name: RAULITO GEMA Address: home [address] [place] [id number]
--- OUTSIDE RECORDS SUMMARY | 2023-12-15 20:57 | XMS_ITS | Continuity of Care Document ---
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 Role Phone Jany Baig DO Primary Care Physician Encounter [facility] [place] Date(s): 11/11/22 - 12/11/22 [facility] [address] [place], [place] [address] Allergies, Adverse Reactions, Alerts Substance [...] acel (oldterm) 08/02/12 Give n 1Result Comment: [facility]: [id number] 2Result Comment: [04/29/2017] [id number] 3Admin Note: FLUARIX 4Admin Note: 3 RDINJ 5Admin Note: #2 Medications acamprosate 333 mg oral delayed release tablet 1 tablet = 333 mg, By Mouth, 3 times a day, # 42 tablet, 4 Refills, Maintenance, 11/05/22 11:31:00 EDT, EC Tablet, [facility], Partial fill upon patient request if the prescription is for a schedule II opioid drug., 175, cm, 11/05/22 10:21:00... Start Date: 11/05/22 Stop Date: 01/14/23 Status: Ordered amLODIPine 5 mg oral tablet 1 tablet, By Mouth, Daily, ^1R1., # 30 tablet, 2 Refills, Maintenance, 10/06/22 4:58:00 EDT, [facility], 176, cm, 09/07/22 8:56:00 EDT, Height, 82.1, kg, 09/07/22 8:59:00 EDT, Dry Weight Start Date: 10/06/22 Status: Ordered baclofen 10 mg oral tablet See Instructions, TAKE 1 TABLET BY MOUTH THREE TIMES DAILY, # 90 tablet, Refills 0, Tot. Refills 0,Maintenance, 12/01/22 16:12:00 EDT, Instructions Replace Required Details, [facility], 175, cm, 11/13/22 10:4... Start Date: 12/01/22 Status: Ordered calcium (as carbonate)-vitamin D 500 mg-400 intl units oral tablet 1 tablet, By Mouth, Daily, ^1R1., # 28 tablet, 0 Refills, Maintenance, 12/01/22 16:12:00 EDT, [facility], 28, 1 tablet By Mouth [...] capsule, 6 Refills, Maintenance, 12/03/22 12:13:00 EDT, [facility], 175, cm, 12/03/22 11:50:00 EDT, Height, [...] Gm, 11 Refills, Maintenance, 08/07/22 12:12:00 EST, [facility]/pharmacy #[id number], 30, USE 1 SPRAY(S) INTO EACH NOSTRIL TWICE A DAY, 176, cm,08/07/22 11:37:00 EST, Height, 79.8, kg, 07/31/22 2... Start Date: 08/07/22 Status: Ordered folic acid 1 mg oral tablet 1, tablet, By Mouth, Daily, R1., # 30 tablet, Refills 5, Tot. Refills 5, Maintenance, 10/06/22 4:59:00 EDT, Route to Pharmacy Electronically, [facility], 176, cm, 09/07/22 8:56:00 EDT, Height, [...] 09/03/22 14:50:00 EDT, Route to Pharmacy Electronically, [facility], 169, cm, 09/03/22 14:21:00 EDT, Height, 69, kg, 08/16/22 1:04:00 EST, Dry Weight Start Date: 09/03/22 Status: Ordered gabapentin 300 mg oral capsule 300 mg, 1, capsule, By Mouth, Daily at bedtime, note dose/frequency change, # 90 capsule, Refills 4, Tot. Refills 4, Maintenance, 11/05/22 11:05:00 EDT, [facility], 175, cm, 11/05/22 10:21:00 EDT, Height, 88.9... Start Date: 11/05/22 Stop Date: 01/29/24 Status: Ordered hydrOXYzine hydrochloride 10 mg oral tablet 2 tablet, By Mouth, 2 times a day, PRN NEEDED FOR ANXIETY (VIAL), # 30 tablet, 3 Refills, Maintenance, 09/24/22 17:01:00 EDT, [facility], 176, cm, 09/07/22 8:56:00 EDT, Height, 82.1, kg, 09/07/22 8:59:00 EDT, Dry Weight Start Date: 09/24/22 Status: Ordered lactulose 10 gm/15 ml oral syrup 15 mL, By Mouth, 2 times a day, # 120 mL, 6 Refills, Maintenance, 09/22/22 12:15:00 EDT, [facility], 4, TAKE 15ML BY MOUTH TWO TIMES A DAY, 176, cm, 09/07/22 8:56:00 EDT, Height, 82.1, kg, 09/07/22 8:59:00 EDT, Dry Weight Start Date: 09/22/22 Status: Ordered Lidoderm 5% film 1 patch, Topically, Daily, remove patches after 12 hours NSAIDS contraindicated High dose tylenol contraindicated remove patches after 12 hours Nueropathy, # 30 patch, 5 Refills, Maintenance, 11/05/22 11:04:00 EDT, [facility], Partial klaudia... Start Date: 11/05/22 Status: Ordered Melatonin 3 mg oral tablet 1 tablet, By Mouth, Daily at bedtime, PRN NEEDED FOR INSOMNIA (PACKAGE IN TRAY)^1R4, # 60 tablet, 5 Refills, Maintenance, 06/12/22 18:11:00 EST, [facility], 60, TAKE 1 TABLET BY MOUTH [...] 09/03/22 14:53:00 EDT, Route to Pharmacy Electronically, [facility], Partial fill upon patient request if [...] 11/05/22 11:31:00 EDT, Route to Pharmacy Electronically, [facility], Partial fill upon patient request if [...] 09/03/22 17:13:00 EDT, Route to Pharmacy Electronically, [facility], 169, cm, 09/03/22 14:21:00 EDT, Height, [...] 03/13/22 8:37:00 EDT, Route to Pharmacy Electronically, [facility], 175, cm, 01/06/22 10:34:00 EDT, Height, 78.3, kg, 12/26/2218:05:00 EDT, Dry Weight Start Date: 03/13/22 Status: Ordered Vitamin B6 50 mg oral tablet 1, tablet, By Mouth, Daily, R1., # 90 tablet, Refills 4, Maintenance, 11/16/22 13:39:00 EDT, Route to Pharmacy Electronically, [facility], 175, cm, 11/13/22 10:42:00 EDT, Height, 88.9, kg, 10/21/22 20:41:00 EDT, Dry Weight Start Date: 11/16/22 Status: Ordered Voltaren 1% topical gel 1 application, Topically, 4 times a day, PRN for pain, # 100 Gm, 0 Refills, Maintenance, 12/01/22 16:12:00 EDT, Gel, [facility], Partial fill upon patient request if [...] tablet, 3 Refills, Maintenance, 10/01/22 15:19:00 EDT, [facility], 176, cm, 09/07/22 8:56:00 EDT, Height, [...] Name: Alexandra Colmenares RN Position: [facility] ED RN W/OE and Tasks Member Role: Primary Care Nurse Name: Garima Manzano RN Position: [facility] RN Member Role: Primary Care Nurse Name: Malgorzata Marinelli RN Position: [facility] RN Member Role: Primary Care Nurse Name: Joyce oRach RN Position: [facility] RN Member Role: Primary Care Nurse Name: Mary Suazo RN Position: [facility] RN Member Role: Primary Care Nurse Name: Andres Pressley RN Position: [facility] RN Member Role: Primary Care Nurse Name: Jany Baig DO Position: [facility] Physician - Primary Care Member Role: PCP Address: Address: [address] [place] [address] Adult [place] [address]- Name: Neida Ballard RN Position: [facility] RN Member Role: Primary Care Nurse Name: Kaye Payne RN Position: [facility] RN Member Role: Primary Care Nurse Name: Garima Hutchinson Position: [facility] RN Member Role: Primary Care Nurse Name: Malgorzata Austin Position: [facility] RN Member Role: Primary Care Nurse Name: Ibeth Adams RN Position: [facility] RN Member Role: Primary Care Nurse Name: Torrie Hernandez RN Position: [facility] OB RN Member Role: Primary Care Nurse Name: Gretcehn Knutson RN Position: [facility] SN RN Member Role: Primary Care Nurse Name: Aislinn Mckee RN Position: [facility] RN Member Role: Primary Care Nurse Name: Ashley Mcelroy Position: [facility] RN Member Role: Primary Care Nurse Name: Cody Garcia Position: [facility] Associate Professional Member Role: Lifetime Consulting Provider Address: Address: [address] [place] [address]- Name: Ge Covarrubias RN Position: [facility] RN Member Role: Primary Care Nurse Name: Orin Elmore RN Position: [facility] ED RN W/OE and Tasks Member Role: Primary Care Nurse Name: Allegra Liu RN Position: [facility] AMB Nurse Member Role: Primary Care Nurse Name: Shayan Pandya MD Position: [facility] Renal MD Member Role: Lifetime Consulting Physician Address: Address: [address] [place] [address] [address] [facility] [place] [address]- Name: Darlene Rodrigez RN Position: [facility] RN Member Role: Primary Care Nurse Name: Kwan Mills RN Position: [facility] RN Member Role: Primary Care Nurse Name: Dolores Can RN Position: [facility] RN Member Role: Primary Care Nurse Name: Kim Rendon RN Position: [facility] RN Member Role: Primary Care Nurse Name: Monica Rowell RN Position: [facility] RN Member Role: Primary Care Nurse Name: Jimi Fitzpatrick RN Position: [facility] RN Member Role: Primary Care Nurse Care Team Related Persons Name: MARLEN CABEZAS Address: [place] [address] Name: MARLEN CABEZAS Address: [place] [address] Name: NICK CABEZAS Name: GEMA CABEZAS Address: [place] [address]
--- OUTSIDE RECORDS SUMMARY | 2023-12-15 20:57 | XMS_ITS | Continuity of Care Document ---
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 Role Phone Jany Baig DO Primary Care Physician ( [phone] Encounter [facility] Date(s): 07/28/23 - 08/27/23 [facility] [address] [place], [place] [address] Allergies, Adverse Reactions, Alerts Substance [...] Give n 1Result Comment: [facility]: [id number] 2Result Comment: [04/29/2017] [id number] 3Admin Note: FLUARIX 4Admin Note: 3 RDINJ 5Admin Note: #2 Medications acamprosate 333 mg oral delayed release tablet 2 tablet = 666 mg, By Mouth, 3 times a day, # 180 tablet, 1 Refills, Maintenance, 07/28/23 11:04:00EST, EC Tablet, [facility], Partial fill upon patient request if [...] tablet, 2 Refills, Maintenance, 07/28/23 11:06:00 EST, [facility], 175, cm, 07/28/23 9:11:00 EST, Height, 61.3, kg, 07/12/23 23:27:00 EST, Dry Weight Start Date: 07/28/23 Status: Ordered amLODIPine 5 mg oral tablet 1 tablet, By Mouth, Daily, ^1R1., # 30 tablet, 2 Refills, Maintenance, 06/02/23 8:00:00 EST, [facility], 175, cm, 03/22/23 6:50:00 [...] 07/28/23 11:10:00 EST, Route to Pharmacy Electronically, [facility], Partial fill upon patient request if [...] Gm, 12 Refills, Maintenance, 07/28/23 11:06:00 EST, [facility], 28, APPLY TOPICALLY TO AFFECTED AREA(S) [...] Gm, 1 Refills, Maintenance, 07/28/23 12:07:00 EST, [facility], 30, USE 1 SPRAY(S) INTO EACH [...] 07/28/23 12:08:00 EST, Route to Pharmacy Electronically, [facility], 175, cm, 07/28/23 9:11:00 EST, Height, 61.3, kg, 07/12/23 23:27:00 EST, Dry Weight Start Date: 07/28/23 Status: Ordered furosemide 20 mg oral tablet 20 mg, 1, tablet, By Mouth, Every other day, # 30 tablet, Refills 1, Tot. Refills 1, Maintenance, 07/28/23 12:08:00 EST, Route to Pharmacy Electronically, [facility], Partial fill upon patient request if the prescription is for a schedule II... Start Date: 07/28/23 Status: Ordered gabapentin 300 mg oral capsule 300 mg, 1, capsule, By Mouth, Daily at bedtime, note dose/frequency change, # 30 capsule, Refills 1, Tot. Refills 1, Maintenance, 07/28/23 12:09:00 EST, Route to Pharmacy Electronically, [facility], 175, cm, 07/28/23 9:11:00 EST, Height, [...] tablet, 3 Refills, Maintenance, 07/28/23 12:10:00 EST, [facility], 175, cm, 07/28/23 9:11:00 EST, Height, 61.3, kg,07/12/23 23:27:00 EST, Dry Weight Start Date: 07/28/23 Status: Ordered lactulose 10 gm/15 ml oral syrup 30 mL = 20 Gm, By Mouth, 3 times a day, for 30 days, # 2,700 mL, 2 Refills, Acute 10/26/23 12:13:00EDT, 07/28/23 12:13:00 EST, Syrup, [facility], Partial fill upon patient request if [...] 60 tablet, 11 Refills, Maintenance,07/28/23 12:09:00 EST, [facility], 175, cm, 07/28/23 9:11:00 EST, Height, [...] tablet, 5 Refills, Maintenance, 07/28/23 12:09:00 EST, [facility], 60, 1 tablet By Mouth Daily [...] 07/28/23 12:11:00 EST, Route to Pharmacy Electronically, [facility], 175, cm, 07/28/23 9:11:00EST, Height, 61.3, [...] 07/28/23 12:12:00 EST, Route to Pharmacy Electronically, [facility], 175, cm, 07/28/23 9:11:00 EST, Height, 61.3, kg, 07/12/23 23:27:00 EST, Dry Weight Start Date: 07/28/23 Status: Ordered spironolactone 25 mg oral tablet 1, tablet, By Mouth, Daily, ^1R2., # 30 tablet, Refills 5, Tot. Refills 5, Maintenance, 04/14/23 12:41:00 EDT, Route to Pharmacy Electronically, [facility], 175, cm, 03/22/23 6:50:00 EDT, Height, 77.5, kg, 03/20/23 11:30:00 EDT, Dry Weight Start Date: 04/14/23 Status: Ordered Tab-A-Jesse oral tablet 1 tablet, By Mouth, Daily, R1., # 30 tablet, 5 Refills, Maintenance, 05/06/23 19:16:00 EST, [facility], 30, TAKE 1 TABLET [...] 02/26/23 10:11:00 EDT, Route to Pharmacy Electronically, [facility], 175, cm, 12/03/22 11:50:00 EDT, Height,84, kg, 02/12/23 11:30:00 EDT, Dry Weight Start Date: 02/26/23 Status: Ordered traZODone 50 mg oral tablet 2, tablet, By Mouth, Daily at bedtime, ^2R4., # 60 tablet, Refills 5, Tot. Refills 5, Maintenance, 07/28/23 12:12:00 EST, Route to Pharmacy Electronically, [facility], 175, cm, 07/28/23 9:11:00 EST, Height, [...] 02/09/23 23:18:00 EDT, Route to Pharmacy Electronically, [facility], 175, cm, 12/03/22 11:50:00 EDT, Height, 88.9, kg, 10/21/22 20:41:00 EDT, Dry Weight Start Date: 02/09/23 Status: Ordered Vitamin B1 100 mg oral tablet 1, tablet, By Mouth, Daily, # 90 tablet, Refills 3, Tot. Refills 3, Maintenance, 07/28/23 12:12:00 EST, Route to Pharmacy Electronically, [facility], 175, cm, 07/28/23 9:11:00 EST, Height, 61.3, kg, 07/12/23 23:27:00 EST, Dry Weight Start Date: 07/28/23 Status: Ordered Vitamin B6 50 mg oral tablet 1, tablet, By Mouth, Daily, R1., # 90 tablet, Refills 4, Maintenance, 11/16/22 13:39:00 EDT, Route to Pharmacy Electronically, [facility], 175, cm, 11/13/22 10:42:00 EDT, Height, 88.9, kg, 10/21/22 20:41:00 EDT, Dry Weight Start Date: 11/16/22 Status: Ordered Vitamin B6 50 mg oral tablet 1, tablet, By Mouth, Daily, R1., # 90 tablet, Refills 4, Tot. Refills 4, Maintenance, 07/28/23 12:11:00 EST, Route to Pharmacy Electronically, [facility], 175, cm, 07/28/23 9:11:00 EST, Height, [...] each, 1 Refills, Maintenance, 07/28/23 14:33:00 EST, [facility], 175, cm, 07/28/23 9:11:00 EST, Height, [...] Nurse Name: Garima Manzano RN Position: [facility] RN Member Role: Primary Care Nurse Name: Malgorzata Marinelli RN Position: [facility] RN Member Role: Primary Care Nurse Name: Joyce Roach RN Position: [facility] ED RN W/OE and Tasks Member Role: Primary Care Nurse Name: Mary Suazo RN Position: [facility] RN Member Role: Primary Care Nurse Name: Lucina ePralta RN Position: [facility] RN Member Role: Primary Care Nurse Name: Maria Esther Craig LPN Position: [facility] RN Member Role: Primary Care Nurse Name: Andres Pressley RN Position: [facility] ED RN W/OE and Tasks Member Role: Primary Care Nurse Name: Jany Baig DO Position: [facility] Physician - Primary Care Member Role: PCP Address: Address: [address] [place] [address] Adult [facility] [place] [address]- Name: Kaye Payne RN Position: [facility] RN Member Role: Primary Care Nurse Name: Garima Curry RN Position: [facility] RN Member Role: Primary Care Nurse Name: Malgorzata Austin Position: [facility] RN Member Role: Primary Care Nurse Name: Ibeth Adams RN Position: [facility] RN Member Role: Primary Care Nurse Name: Torrie Hernandez RN Position: [facility] OB RN Member Role: Primary Care Nurse Name: Gretchen Knutson RN Position: [facility] SN RN Member Role: Primary Care Nurse Name: Aislinn Mckee RN Position: [facility] RN Member Role: Primary Care Nurse Name: Ashley Mcelroy Position: [facility] RN Member Role: Primary Care Nurse Name: Ashok Kevin RN Position: [facility] RN Member Role: Primary Care Nurse Name: Cody Garcia Position: [facility] Associate Professional Member Role: Lifetime Consulting Provider Address: Address: [address] [place] [address]- Name: Paige Nascimento RN Position: [facility] RN Member Role: Primary Care Nurse Name: Ge Covarrubias RN Position: [facility] RN Member Role: Primary Care Nurse Name: Orin Elmore RN Position: [facility] ED RN W/OE and Tasks Member Role: Primary Care Nurse Name: Allegra Liu RN Position: [facility] AMB Nurse Member Role: Primary Care Nurse Name: Shayan Pandya MD Position: [facility] Renal MD Member Role: Lifetime Consulting Physician Address: Address: [address] [facility] [address] [facility], [place] [address]- Name: Kimberley Pittman RN Position: [facility] RN Member Role: Primary Care Nurse Name: Darlene Rodrigez RN Position: [facility] RN Member Role: Primary Care Nurse Name: Dixie Duke RN Position: [facility] RN Member Role: Primary Care Nurse Name: Kwan Mills RN Position: [facility] ED RN W/OE and Tasks Member Role: Primary Care Nurse Name: Ingrid Verdugo RN Position: [facility] RN Member Role: Primary Care Nurse Name: Monica Rowell RN Position: [facility] RN Member Role: Primary Care Nurse Name: Jimi Fitzpatrick RN Position: [facility] RN Member Role: Primary Care Nurse Care Team Related Persons Name: RAULITO MARLEN Address: [address] [place] [address] Name: MARLEN CABEZAS Address: [address] [place] [address] Name: NICK CABEZAS Name: GEMA CABEZAS Address: [address] [place] [address] Name: ELTON CHENG Address: home [address] [place] [id number]
--- OUTSIDE RECORDS SUMMARY | 2023-12-15 20:57 | XMS_ITS | Continuity of Care Document ---
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 Role Phone Jany Baig DO Primary Care Physician Encounter [facility] Date(s): 02/19/22 - 03/21/22 [facility] [address] [place] [address]- Attending Physician: Venice Salmon Admitting Physician: Venice [...] (oldterm) 08/02/12 Give n 1Result Comment: [04/29/2017] [id number] 2Admin Note: FLUARIX 3Admin Note: 3 RDINJ 4Admin Note: #2 Medications acetaminophen 500 mg oral tablet 1 tablet, By Mouth, 4 times a day, PRN NEEDED FOR PAIN, MAX 4, PER DAY (VIAL., # 50 tablet, 11 Refills, Maintenance, 03/13/22 8:37:00 EDT, [facility], 175, cm, 01/06/22 10:34:00 EDT, Height, 78.3, kg, 12/26/21 19:05:00 EDT, Dry Weight Start Date: 03/13/22 Status: Ordered amLODIPine 5 mg oral tablet 5 mg, 1, tablet, By Mouth, Daily, # 30 tablet, Refills 5, Tot. Refills 5, Maintenance, 10/21/21 10:15:00 EDT, Route to Pharmacy Electronically, [facility], Partial fill upon patient request if the prescription is for a schedule II opioid drug.... Start Date: 10/21/21 Status: Ordered Co Q-10 100 mg oral capsule 1 capsule, By Mouth, 4 times a day, # 120 capsule, 5 Refills, Maintenance, 02/18/22 12:44:00 EDT, [facility], 175, cm, 01/06/22 10:34:00 EDT, Height, [...] Refills, Maintenance, 02/18/22 10:02:00 EDT, [facility], 30, USE 1 SPRAY(S) INTO EACH NOSTRIL TWICE A DAY, 175, cm, 01/06/22 10:34:00 EDT, Height, 78.3, kg, 12/26/21 19... Start Date: 02/18/22 Status: Ordered folic acid 1 mg oral tablet 1 mg, 1, tablet, By Mouth, Daily, # 90 tablet, Refills 4, Tot. Refills 4, Maintenance, 10/27/21 10:40:00 EDT, Route to Pharmacy Electronically, [facility], Partial fill upon patient request if the prescription is for a schedule II opioid drug.... Start Date: 10/27/21 Stop Date: 01/20/23 Status: Ordered furosemide 20 mg oral tablet 1, tablet, By Mouth, 2 times a day, # 60 tablet, Refills 2, Tot. Refills 2, Maintenance, 03/19/22 9:46:00 EDT, Route to Pharmacy Electronically, [facility], 175, cm, 01/06/22 10:34:00 EDT, Height, 78.3, kg, 12/26/21 19:05:00 EDT, Dry Weight Start Date: 03/19/22 Stop Date: 06/17/22 Status: Ordered gabapentin 300 mg oral capsule 600 mg, 2, capsule, By Mouth, Daily at bedtime, note dose change, # 180 capsule, Refills 4, Tot. Refills 4, Maintenance, 03/04/22 10:17:00 EDT, Route to Pharmacy Electronically, [facility]/pharm[facility] #[id number], Partial fill upon patient request if the prescription... Start Date: 03/04/22 Stop Date: 05/28/23 Status: Ordered hydrOXYzine hydrochloride 25 mg oral tablet 1 TO 2 TABLETS, By Mouth, 3 times a day, PRN NEEDED FOR ANXIETY (VIAL), # 60 tablet, 11 Refills,Maintenance, 03/13/22 8:38:00 EDT, [facility], 175, cm, 01/06/22 10:34:00 EDT, Height, 78.3, kg, 12/26/21 19:05:00 EDT, Dry Weight Start Date: 03/13/22 Status: Ordered lactulose 10 gm/15 ml oral syrup See Instructions, TAKE 30ML BY MOUTH THREE TIMES DAILY NEEDED TO ACHEIVE 3-4 BOWL MOVEMENTS PER DAY, # 3,000 mL, 10 Refills, [facility], 30, TAKE 30ML BY MOUTH THREE TIMES DAILY NEEDED TO ACHEIVE 3-4 BOWL MOVEMENTS PER DAY, 174, cm, 02/12... Start Date: 07/02/21 Status: Ordered lidocaine 0.5% topical gel 1 application, Topically, 3 times a day, # 120 Gm, 0 Refills, Acute 12/30/22 17:23:00 EDT, 12/30/2216:23:00 EDT, Gel, [facility], Partial fill upon patient request if the prescription is fora schedule II opioid drug., 1 application Topically... Start Date: 12/30/21 Stop Date: 12/30/22 Status: Ordered Lidoderm 5% film 1 patch, Topically, Daily, remove patches after 12 hours NSAIDS contraindicated High dose tylenol contraindicated, # 30 patch, 5 Refills, Maintenance, 12/26/21 9:33:00 EDT, [facility], Partial fill upon patient request if the prescription i... Start Date: 12/26/21 Status: Ordered magnesium oxide 400 mg oral tablet 1 tablet, By Mouth, 2 times a day, # 60 tablet, 11 Refills, Maintenance, 03/13/22 8:37:00 EDT, [facility], 175, cm, 01/06/22 10:34:00 EDT, Height, [...] tablet, 1 Refills, Maintenance, 03/13/22 12:37:00 EDT, [id number], 175, cm, 01/06/22 10:34:00 EDT, Height, 78.3, kg, 12/26/21 19:05:00 EDT, Dry Weight Start Date: 03/13/22 Status: Ordered pyridoxine 50 mg oral tablet 50 mg, 1, tablet, By Mouth, Daily, for 90 days, # 90 tablet, Refills 4, Tot. Refills 4, Acute 01/15/23 11:42:00 EDT, 10/22/21 11:42:00 EDT, [facility], Partial fill upon patient request if [...] Maintenance, 03/12/22 17:21:00 EDT, Tablet, [facility]/pharmacy #[id number], Partial fill upon patient request if the [...] Pharmacy Electronically, [facility], 175,cm, 01/06/22 10:34:00 EDT, Height, 78.3, kg, ... Start Date: 01/30/22 Status: Ordered traZODone 50 mg oral tablet See Instructions, TAKE 2-3 TABLETS BY MOUTH AT BEDTIME (ONE DOSE IN VIAL), # 90 tablet, Refills 5, Tot. Refills 5, Maintenance, 12/26/21 9:21:00 EDT, Instructions Replace Required Details, Route to Pharmacy Electronically, [facility], 170, cm,... Start Date: 12/26/21 Status: Ordered Vitamin B1 100 mg oral tablet 1, tablet, By Mouth, Daily, # 90 tablet, Refills 3, Maintenance, 03/13/22 8:37:00 EDT, Route to Pharmacy Electronically, [facility], 175, cm, 01/06/22 10:34:00 EDT, Height, 78.3, kg, 12/26/2218:05:00 EDT, Dry Weight Start Date: 03/13/22 Status: Ordered Xifaxan 550 mg oral tablet 1 tablet, By Mouth, 2 times a day, # 60 tablet, 2 Refills, [facility], 175, cm, 01/06/22 10:34:00 EDT, Height, [...] Name: Jany Baig DO Address: Address: [address] [place] [address] Adult & Pediatric Medicine [place], [place] [address]
--- OUTSIDE RECORDS SUMMARY | 2023-12-15 20:57 | XMS_ITS | Continuity of Care Document ---
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 Role Phone Jany Baig DO Primary Care Physician Encounter [facility] Date(s): 08/07/22 - 09/06/22 [facility] [address] [place] [address]- Allergies, Adverse Reactions, Alerts Substance Reaction Severity [...] acel (oldterm) 08/02/12 Give n 1Result Comment: [facility]: [id number] 2Result Comment: [04/29/2017] [id number] 3Admin Note: FLUARIX 4Admin Note: 3 RDINJ 5Admin Note: #2 Medications acamprosate 333 mg oral delayed release tablet 1 tablet = 333 mg, By Mouth, 3 times a day, # 90 tablet, 4 Refills, Maintenance, 09/03/22 14:59:00 EDT, EC Tablet, [facility], Partial fill upon patient request if the prescription is for a schedule II opioid drug., 169, cm, 09/03/22 14:21:00... Start Date: 09/03/22 Status: Ordered acetaminophen 500 mg oral tablet 1 tablet, By Mouth, 4 times a day, PRN NEEDED FOR PAIN, MAX 4, PER DAY (VIAL., # 50 tablet, 11 Refills, Maintenance, 03/13/22 8:37:00 EDT, [facility], 175, cm, 01/06/22 10:34:00 EDT, Height, 78.3, kg, 12/26/21 19:05:00 EDT, Dry Weight Start Date: 03/13/22 Status: Ordered amLODIPine 5 mg oral tablet See Instructions, TAKE 1 TABLET BY MOUTH ONCE A DAY^1R1, # 30 tablet, 5 Refills, Maintenance, 05/13/22 16:24:00 EST, [facility], 175, cm, 04/09/22 15:34:00 EDT, Height, 78.3, kg, 12/26/21 19:05:00 EDT, Dry Weight Start Date: 05/13/22 Status: Ordered baclofen 10 mg oral tablet See Instructions, TAKE 1 TABLET BY MOUTH THREE TIMES DAILY, # 90 tablet, Refills 0, Maintenance, 08/07/22 12:26:00 EST, Instructions Replace Required Details, Route to Pharmacy Electronically, [facility], 176, cm, 08/07/22 11:37:00 EST, Height... Start Date: 08/07/22 Status: Ordered Co Q-10 100 mg oral capsule See Instructions, TAKE 1 CAPSULE BY MOUTH FOUR TIMES DAILY, # 120 capsule, 6 Refills, Maintenance, 08/07/22 12:13:00 EST, [facility], 176, cm, 08/07/22 11:37:00 EST, [...] Maintenance, 08/07/22 12:12:00 EST, [facility]/pharmacy #[id number], 30, USE 1 SPRAY(S) INTO EACH NOSTRIL TWICE A DAY, 176, cm,08/07/22 11:37:00 EST, Height, 79.8, kg, 07/31/22 2... Start Date: 08/07/22 Status: Ordered folic acid 1 mg oral tablet 1 mg, 1, tablet, By Mouth, Daily, # 90 tablet, Refills 4, Tot. Refills 4, Maintenance, 10/27/21 10:40:00 EDT, [facility], Partial fill upon patient request if the prescription is for a schedule II opioid drug.... Start Date: 10/27/21 Stop Date: 01/20/23 Status: Ordered furosemide 20 mg oral tablet See Instructions, TAKE 1 TABLET BY MOUTH ONCE A DAY^1R1, # 30 tablet, Refills 2, Maintenance, 08/07/22 12:27:00 EST, Instructions Replace Required Details, Route to Pharmacy Electronically, [facility], 176, cm, 08/07/22 11:37:00 EST, Height, 7... Start Date: 08/07/22 Status: Ordered furosemide 20 mg oral tablet 1, tablet, By Mouth, Daily, R1., # 30 tablet, Refills 5, Tot. Refills 5, Maintenance, 09/03/22 14:50:00 EDT, [facility], 169, cm, 09/03/22 14:21:00 EDT, Height, 69, kg, 08/16/22 1:04:00 EST, Dry Weight Start Date: 09/03/22 Status: Ordered gabapentin 300 mg oral capsule 300 mg, 1, capsule, By Mouth, 2 times a day, note dose/frequency change, # 180 capsule, Refills 4, Tot. Refills 4, Maintenance, 09/03/22 14:55:00 EDT, [facility], 169, cm, 09/03/22 14:21:00 EDT, Height, 69, kg... Start Date: 09/03/22 Stop Date: 11/27/23 Status: Ordered hydrOXYzine hydrochloride 25 mg oral tablet 1 TO 2 TABLETS, By Mouth, Daily at bedtime, PRN NEEDED FOR ANXIETY (VIAL), # 60 tablet, 11 Refills, Maintenance, 03/13/22 8:38:00 EDT, [facility], 175, cm, 01/06/22 10:34:00 EDT, Height, 78.3, kg, 12/26/21 19:05:00 EDT, Dry Weight Start Date: 03/13/22 Status: Ordered lactulose 10 gm/15 ml oral syrup See Instructions, TAKE 30ML BY MOUTH THREE TIMES DAILY NEEDED TO ACHEIVE 3-4 BOWL MOVEMENTS PER DAY, # 3,000 mL, 10 Refills, [facility], 30, TAKE 30ML BY MOUTH THREE TIMES DAILY NEEDED TO ACHEIVE 3-4 BOWL MOVEMENTS PER DAY, 174, cm, 02/12... Start Date: 07/02/21 Status: Ordered Lidoderm 5% film 1 patch, Topically, Daily, remove patches after 12 hours NSAIDS contraindicated High dose tylenol contraindicated remove patches after 12 hours Nueropathy, # 30 patch, 5 Refills, Maintenance, 09/03/22 16:34:00 EDT, [facility], Partial klaudia... Start Date: 09/03/22 Status: Ordered magnesium oxide 400 mg oral tablet 1 tablet, By Mouth, 2 times a day, # 60 tablet, 11 Refills, Maintenance, 03/13/22 8:37:00 EDT, [facility], 175, cm, 01/06/22 10:34:00 EDT, Height, 78.3, kg, 12/26/21 19:05:00 EDT, Dry Weight Start Date: 03/13/22 Status: Ordered Melatonin 3 mg oral tablet 1 tablet, By Mouth, Daily at bedtime, PRN NEEDED FOR INSOMNIA (PACKAGE IN TRAY)^1R4, # 60 tablet, 5 Refills, Maintenance, 06/12/22 18:11:00 EST, [facility], 60, TAKE 1 TABLET BY [...] 09/03/22 14:53:00 EDT, Route to Pharmacy Electronically, [facility], Partial fill upon patient request if the prescription is for a schedule II opioid drug... Start Date: 09/03/22 Stop Date: 03/02/23 Status: Ordered pyridoxine 50 mg oral tablet 50 mg, 1, tablet, By Mouth, Daily, for 90 days, # 90 tablet, Refills 4, Tot. Refills 4, Acute 01/15/23 11:42:00 EDT, 10/22/21 11:42:00 EDT, Route to Pharmacy Electronically, [facility], Partial fill upon patient request if [...] 09/03/22 17:13:00 EDT, Route to Pharmacy Electronically, [facility], 169, cm, 09/03/22 14:21:00 EDT, Height, 69, kg, 08/16/22 1:04:00 EST, Dry Weight Start Date: 09/03/22 Status: Ordered Vitamin B1 100 mg oral tablet 1, tablet, By Mouth, Daily, # 90 tablet, Refills 3, Maintenance, 03/13/22 8:37:00 EDT, Route to Pharmacy Electronically, [facility], 175, cm, 01/06/22 10:34:00 EDT, Height, 78.3, kg, 12/26/2218:05:00 EDT, Dry Weight Start Date: 03/13/22 Status: Ordered Xifaxan 550 mg oral tablet 1 tablet, By Mouth, 2 times a day, ^1R1,1R4., # 60 tablet, 1 Refills, Maintenance, 06/12/22 18:10:00 EST, [facility], 179, cm, 06/08/22 7:37:00 EST, Height, [...] Personnel Name: Darrian RN, Alexandra Demarco Position: S ED RN W/OE and Tasks Member Role: Primary Care Nurse Name: Bathel RN, Garima Position: [facility] RN Member Role: Primary Care Nurse Name: Malgorzata Marinelli RN Position: [facility] RN Member Role: Primary Care Nurse Name: Joyce Roach RN Position: [facility] RN Member Role: Primary Care Nurse Name: Mary Suazo RN Position: [facility] RN Member Role: Primary Care Nurse Name: Andres Pressley RN Position: [facility] RN Member Role: Primary Care Nurse Name: Jany Baig DO Position: [facility] Primary Care Physician Member Role: PCP Address: Address: [address] [place] [address] Adult [place] [address]- Name: Neida Ballard RN Position: [facility] RN Member Role: Primary Care Nurse Name: Kaye Payne RN Position: [facility] RN Member Role: Primary Care Nurse Name: Garima Hutchinson Position: [facility] RN Member Role: [...] Role: Lifetime Consulting Provider Address: Address: [address] [place] [address]- Name: Ge Covarrubias RN Position: [facility] RN Member Role: Primary Care Nurse Name: Orin Elmore RN Position: [facility] ED RN W/OE and Tasks Member Role: Primary Care Nurse Name: Allegra Liu RN Position: [facility] PCO RN Member Role: Primary Care Nurse Name: Shayan Pandya MD Position: [facility] Renal MD Member Role: Lifetime Consulting Physician Address: Address: [address] [place] [address] [address] [facility] [place] [place] [address]- Name: Darlene Rodrigez RN Position: [facility] RN Member Role: Primary [...] Team Related Persons Name: MARLEN CABEZAS Address: [place] [address] Name: MARLEN CABEZAS Address: [place] [address] Name: NICK CABEZAS Name: GEMA CABEZAS Address: [place] [address]
--- OUTSIDE RECORDS SUMMARY | 2023-12-15 20:57 | XMS_ITS | Continuity of Care Document ---
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 Name Role Phone Jany Baig DO Primary Care Physician Encounter [facility] Date(s): 09/17/23 - 10/17/23 [facility] [address] [place] [address]- Allergies, Adverse Reactions, Alerts Substance Reaction Severity [...] n 1Result Comment: [facility]: [id number] 2Result Comment: [04/29/2017] [id number] 3Admin Note: FLUARIX 4Admin Note: 3 RDINJ 5Admin Note: #2 Medications acamprosate 333 mg oral delayed release tablet 2 tablet = 666 mg, By Mouth, 3 times a day, # 180 tablet, 1 Refills, Maintenance, 07/28/23 11:04:00EST, EC Tablet, [facility], Partial fill upon patient request if [...] tablet, 2 Refills, Maintenance, 07/28/23 11:06:00 EST, [facility], 175, cm, 07/28/23 9:11:00 EST, Height, 61.3, kg, 07/12/23 23:27:00 EST, Dry Weight Start Date: 07/28/23 Status: Ordered amLODIPine 5 mg oral tablet 1 tablet, By Mouth, Daily, ^1R1., # 30 tablet, 2 Refills, Maintenance, 06/02/23 8:00:00 EST, [facility], 175, cm, 03/22/23 6:50:00 EDT, [...] 07/28/23 11:10:00 EST, Route to Pharmacy Electronically, [facility], Partial fill upon patient request if [...] Gm, 12 Refills, Maintenance, 07/28/23 11:06:00 EST, [facility], 28, APPLY TOPICALLY TO AFFECTED AREA(S) [...] Gm, 1 Refills, Maintenance, 07/28/23 12:07:00 EST, [facility], 30, USE 1 SPRAY(S) INTO EACH [...] 07/28/23 12:08:00 EST, Route to Pharmacy Electronically, [facility], 175, cm, 07/28/23 9:11:00 EST, Height, 61.3, kg, 07/12/23 23:27:00 EST, Dry Weight Start Date: 07/28/23 Status: Ordered furosemide 20 mg oral tablet 20 mg, 1, tablet, By Mouth, Every other day, # 30 tablet, Refills 1, Tot. Refills 1, Maintenance, 07/28/23 12:08:00 EST, Route to Pharmacy Electronically, [facility], Partial fill upon patient request if the prescription is for a schedule II... Start Date: 07/28/23 Status: Ordered gabapentin 300 mg oral capsule 300 mg, 1, capsule, By Mouth, Daily at bedtime, note dose/frequency change, # 30 capsule, Refills 1, Tot. Refills 1, Maintenance, 07/28/23 12:09:00 EST, Route to Pharmacy Electronically, [facility], 175, cm, 07/28/23 9:11:00 [...] tablet, 3 Refills, Maintenance, 07/28/23 12:10:00 EST, [facility], 175, cm, 07/28/23 9:11:00 EST, Height, 61.3, kg,07/12/23 23:27:00 EST, Dry Weight Start Date: 07/28/23 Status: Ordered lactulose 10 gm/15 ml oral syrup 30 mL = 20 Gm, By Mouth, 3 times a day, for 30 days, # 2,700 mL, 2 Refills, Acute 10/26/23 12:13:00EDT, 07/28/23 12:13:00 EST, Syrup, [facility], Partial fill upon patient request if [...] 60 tablet, 11 Refills, Maintenance,07/28/23 12:09:00 EST, [facility], 175, cm, 07/28/23 9:11:00 EST, Height, [...] tablet, 5 Refills, Maintenance, 07/28/23 12:09:00 EST, [facility], 60, 1 tablet By Mouth Daily [...] 09/29/24 19:11:00 EDT, 09/30/23 19:11:00 EDT, Gum, [facility], Partial fill upon patient request if [...] 07/28/23 12:11:00 EST, Route to Pharmacy Electronically, [facility], 175, cm, 07/28/23 9:11:00EST, Height, 61.3, [...] 07/28/23 12:12:00 EST, Route to Pharmacy Electronically, [facility], 175, cm, 07/28/23 9:11:00 EST, Height, 61.3, kg, 07/12/23 23:27:00 EST, Dry Weight Start Date: 07/28/23 Status: Ordered spironolactone 25 mg oral tablet 1, tablet, By Mouth, Daily, ^1R2., # 30 tablet, Refills 5, Tot. Refills 5, Maintenance, 04/14/23 12:41:00 EDT, Route to Pharmacy Electronically, [facility], 175, cm, 03/22/23 6:50:00 EDT, Height, 77.5, kg, 03/20/23 11:30:00 EDT, Dry Weight Start Date: 04/14/23 Status: Ordered Tab-A-Jesse oral tablet 1 tablet, By Mouth, Daily, R1., # 30 tablet, 5 Refills, Maintenance, 05/06/23 19:16:00 EST, [facility], 30, TAKE 1 TABLET BY [...] 02/26/23 10:11:00 EDT, Route to Pharmacy Electronically, [facility], 175, cm, 12/03/22 11:50:00 EDT, Height,84, kg, 02/12/23 11:30:00 EDT, Dry Weight Start Date: 02/26/23 Status: Ordered traZODone 50 mg oral tablet 50 mg, 1, tablet, By Mouth, Daily at bedtime, ^2R4., # 60 tablet, Refills 5, Tot. Refills 5, Maintenance, 07/28/23 12:12:00 EST, Route to Pharmacy Electronically, [facility], 175, cm, 07/28/23 9:11:00 EST, Height, [...] 02/09/23 23:18:00 EDT, Route to Pharmacy Electronically, [facility], 175, cm, 12/03/22 11:50:00 EDT, Height, 88.9, kg, 10/21/22 20:41:00 EDT, Dry Weight Start Date: 02/09/23 Status: Ordered Vitamin B1 100 mg oral tablet 1, tablet, By Mouth, Daily, # 90 tablet, Refills 3, Tot. Refills 3, Maintenance, 07/28/23 12:12:00 EST, Route to Pharmacy Electronically, [facility], 175, cm, 07/28/23 9:11:00 EST, Height, 61.3, kg, 07/12/23 23:27:00 EST, Dry Weight Start Date: 07/28/23 Status: Ordered Vitamin B6 50 mg oral tablet 1, tablet, By Mouth, Daily, R1., # 90 tablet, Refills 4, Maintenance, 11/16/22 13:39:00 EDT, Route to Pharmacy Electronically, [facility], 175, cm, 11/13/22 10:42:00 EDT, Height, 88.9, kg, 10/21/22 20:41:00 EDT, Dry Weight Start Date: 11/16/22 Status: Ordered Vitamin B6 50 mg oral tablet 1, tablet, By Mouth, Daily, R1., # 90 tablet, Refills 4, Tot. Refills 4, Maintenance, 07/28/23 12:11:00 EST, Route to Pharmacy Electronically, [facility], 175, cm, 07/28/23 9:11:00 EST, Height, [...] each, 5 Refills, Maintenance, 09/30/23 19:11:00 EDT, [facility], 175, cm, 09/24/23 11:09:00 EDT, Height, [...] Team Personnel Name: Shira Galindo RN Position: [facility] RN Member Role: Primary Care Nurse Name: Alexandra Colmenares RN Position: [facility] ED RN W/OE and Tasks Member Role: Primary Care Nurse Name: Garima Manzano RN Position: [facility] RN Member Role: Primary Care Nurse Name: Malgorzata Marinelli RN Position: [facility] RN Member Role: Primary Care Nurse Name: Joyce Roach RN Position: [facility] ED RN W/OE and Tasks Member Role: Primary Care Nurse Name: Lucina Peralta RN Position: [facility] RN Member Role: Primary Care Nurse Name: Maria Esther Craig LPN Position: [facility] RN Member Role: Primary Care Nurse Name: Kaye Comer RN Position: [facility] RN Member Role: Primary Care Nurse Name: Andres Pressley RN Position: [facility] RN Member Role: Primary Care Nurse Name: Jany Baig DO Position: [facility] Physician - Primary Care Member Role: PCP Address: Address: [address] [place] [address] Adult [facility] Medicine [address] Name: Mary Haines RN Position: [facility] RN Member Role: Primary Care Nurse Name: Garima Curry RN Position: [facility] RN Member Role: Primary Care Nurse Name: Malgorzata Austin Position: [facility] RN Member Role: Primary Care Nurse Name: Ibeth Adams RN Position: [facility] RN Member Role: Primary Care Nurse Name: Torrie Hernandez RN Position: [facility] OB RN Member Role: Primary Care Nurse Name: Gretchen Knutson RN Position: [facility] SN RN Member Role: Primary Care Nurse Name: Aislinn Mckee RN Position: [facility] RN Member Role: Primary Care Nurse Name: Ashley Mcelroy Position: [facility] RN Member Role: Primary Care Nurse Name: Ashok Kevin RN Position: [facility] RN Member Role: Primary Care Nurse Name: Cody Garcia Position: [facility] Associate Professional Member Role: Lifetime Consulting Provider Address: Address: [address] [place] [id number]- Name: Paige Nascimento RN Position: [facility] RN Member Role: Primary Care Nurse Name: Ge Covarrubias RN Position: [facility] RN Member Role: Primary Care Nurse Name: Orin Elmore RN Position: [facility] ED RN W/OE and Tasks Member Role: Primary Care Nurse Name: Allegra Liu RN Position: [facility] AMB Nurse Member Role: Primary Care Nurse Name: Shayan Pandya MD Position: [facility] Renal MD Member Role: Lifetime Consulting Physician Address: Address: [address] [place] [address] [address] [facility] [place] [address]- Name: Kimberley Pittman RN Position: [facility] RN Member Role: Primary Care Nurse Name: Darlene Rodrigez RN Position: [facility] RN Member Role: Primary Care Nurse Name: Dixie Duke RN Position: [facility] RN Member Role: Primary Care Nurse Name: Kwan Mills RN Position: [facility] ED RN W/OE and Tasks Member Role: Primary Care Nurse Name: Ingrid Verdugo RN Position: [facility] RN Member Role: Primary Care Nurse Name: Monica Rowell RN Position: [facility] RN Member Role: Primary Care Nurse Name: Jimi Fitzpatrick RN Position: [facility] RN Member Role: Primary Care Nurse Care Team Related Persons Name: MARLEN CABEZAS Address: home [address] [place] [address] Name: MARLEN CABEZAS Address: [address] [place] [address] Name: NIKC CABEZAS Name: GEMA CABEZAS Address: home [address] [place] [address] Name: ELTON CHENG Address: home [address] [place] [id number]
--- OUTSIDE RECORDS SUMMARY | 2023-12-15 20:57 | XMS_ITS | Continuity of Care Document ---
Author Organization [facility] Address [address] [place] [address]- Care Team Providers Care Environmental Emergencies Planner Name Role Phone Jany Baig DO Primary Care Physician ( [phone] Encounter [facility] Date(s): 09/30/23 - 10/30/23 [facility] [address] [place] [address]- Allergies, Adverse Reactions, Alerts Substance Reaction Severity [...] Give n 1Result Comment: [facility]: [id number] 2Result Comment: [04/29/2017] [id number] 3Admin Note: FLUARIX 4Admin Note: 3 RDINJ 5Admin Note: #2 Medications acamprosate 333 mg oral delayed release tablet 2 tablet = 666 mg, By Mouth, 3 times a day, # 180 tablet, 1 Refills, Maintenance, 07/28/23 11:04:00EST, EC Tablet, [facility], Partial fill upon patient request if the prescription is for a schedule II opioid drug., 175, cm, 07/28/23 9:11:0... Start Date: 07/28/23 Stop Date: 09/26/23 Status: Ordered amLODIPine 5 mg oral tablet 1 tablet, By Mouth, Daily, ^1R1., # 30 tablet, 2 Refills, Maintenance, 06/02/23 8:00:00 EST, [facility], 175, cm, 03/22/23 6:50:00 EDT, Height, 77.5, kg, 03/20/23 11:30:00 EDT, Dry Weight Start Date: 06/02/23 Status: Ordered baclofen 10 mg oral tablet 10 mg, 1, tablet, By Mouth, 3 times a day, # 90 tablet, Refills 2, Tot. Refills 2, Maintenance, 07/28/23 11:10:00 EST, Route to Pharmacy Electronically, [facility] [...] Dry Weight Start Date: 07/28/23 Status: Ordered diclofenac 1% topical gel See Instructions, APPLY TOPICALLY TO AFFECTED AREA(S) FOUR TIMES A DAY NEEDED FOR PAIN (BULK), #100 Gm, 12 Refills, Maintenance, 07/28/23 11:06:00 EST, [facility], 28, APPLY TOPICALLY TO AFFECTED AREA(S) FOUR TIMES A DAY NEEDED FOR PA... Start Date: 07/28/23 Status: Ordered fluticasone 50 mcg/inh nasal spray See Instructions, USE 1 SPRAY(S) INTO EACH NOSTRIL TWICE A DAY, # 16 Gm, 1 Refills, Maintenance, 07/28/23 12:07:00 EST, [facility], 30, USE 1 SPRAY(S) INTO EACH NOSTRIL TWICE A DAY, 175, cm, 07/28/23 9:11:00 EST, Height, 61.3, kg, 07/12/23 2... Start Date: 07/28/23 Status: Ordered folic acid 1 mg oral tablet 1, tablet, By Mouth, Daily, ^1R1., # 30 tablet, Refills 5, Tot. Refills 5, Maintenance, 07/28/23 12:08:00 EST, Route to Pharmacy Electronically, [facility], 175, cm, 07/28/23 9:11:00 EST, Height, [...] 07/28/23 12:09:00 EST, Route to Pharmacy Electronically, [facility], 175, cm, 07/28/23 9:11:00 EST, Height, 61.... Start Date: 07/28/23 Stop Date: 10/20/24 Status: Ordered hydrOXYzine hydrochloride 10 mg oral tablet 2 tablet, By Mouth, 2 times a day, PRN NEEDED FOR ANXIETY (VIAL), # 30 tablet, 3 Refills, Maintenance, 07/28/23 12:10:00 EST, [facility], 175, cm, 07/28/23 9:11:00 EST, Height, 61.3, kg,07/12/23 23:27:00 EST, Dry Weight Start Date: 07/28/23 Status: Ordered magnesium oxide 400 mg oral tablet See Instructions, TAKE 1 TABLET BY MOUTH TWICE A DAY^1R1,1R4, # 60 tablet, 11 Refills, Maintenance,07/28/23 12:09:00 EST, [facility], 175, cm, 07/28/23 9:11:00 EST, Height, 61.3, kg, 07/12/23 23:27:00 EST, Dry Weight Start Date: 07/28/23 Status: Ordered Melatonin 3 mg oral tablet 1 tablet, By Mouth, Daily at bedtime, PRN NEEDED FOR INSOMNIA (PACKAGE IN TRAY)^1R4, # 60 tablet, 5 Refills, Maintenance, 07/28/23 12:09:00 EST, [facility], 60, 1 tablet By Mouth Daily [...] 07/28/23 12:11:00 EST, Route to Pharmacy Electronically, [facility], 175, cm, 07/28/23 9:11:00EST, Height, 61.3, kg, 07/12/23 23:27:00 EST, Dry W... Start Date: 07/28/23 Status: Ordered Saljet Sterile 0.9% irrigation solution [...] 07/28/23 12:12:00 EST, Route to Pharmacy Electronically, [facility], 175, cm, 07/28/23 9:11:00 EST, Height, 61.3, kg, 07/12/23 23:27:00 EST, Dry Weight Start Date: 07/28/23 Status: Ordered Tab-A-Jesse oral tablet 1 tablet, By Mouth, Daily, R1., # 30 tablet, 5 Refills, Maintenance, 05/06/23 19:16:00 EST, [facility], 30, TAKE 1 TABLET BY MOUTH ONCE A DAY^1R1, 175, cm, 03/22/23 6:50:00 EDT, Height, 77.5,kg, 03/20/23 11:30:00 EDT, Dry Weight Start Date: 05/06/23 Status: Ordered traZODone 50 mg oral tablet 50 mg, 1, tablet, By Mouth, Daily at bedtime, ^2R4., # 60 tablet, Refills 5, Tot. Refills 5, Maintenance, 07/28/23 12:12:00 EST, Route to Pharmacy Electronically, [facility], 175, cm, 07/28/23 9:11:00 EST, Height, 61.3, kg, 07/12/23 23:27:00... Start Date: 07/28/23 Status: Ordered Vitamin B1 100 mg oral tablet 1, tablet, By Mouth, Daily, # 90 tablet, Refills 3, Tot. Refills 3, Maintenance, 07/28/23 12:12:00 EST, Route to Pharmacy Electronically, [facility], 175, cm, 07/28/23 9:11:00 EST, Height, 61.3, kg, 07/12/23 23:27:00 EST, Dry Weight Start Date: 07/28/23 Status: Ordered Vitamin B6 50 mg oral tablet 1, tablet, By Mouth, Daily, R1., # 90 tablet, Refills 4, Tot. Refills 4, Maintenance, 07/28/23 12:11:00 EST, Route to Pharmacy Electronically, [facility], 175, cm, 07/28/23 9:11:00 EST, Height, 61.3, kg, 07/12/23 23:27:00 EST, Dry Weight Start Date: 07/28/23 Status: Ordered Xifaxan 550 mg oral tablet See Instructions, 1 tablet By Mouth 2 times a day, # 60 each, 5 Refills, Maintenance, 09/30/23 19:11:00 EDT, [facility], 175, cm, 09/24/23 11:09:00 EDT, Height, [...] Team Personnel Name: Shira Galindo RN Position: [facility] RN Member Role: Primary Care Nurse Name: Alexandra Colmenares RN Position: [facility] ED RN W/OE and Tasks Member Role: Primary Care Nurse Name: Garima Manzano RN Position: [facility] RN Member Role: Primary Care Nurse Name: Malgorzata Marinelli RN Position: [facility] RN Member Role: Primary Care Nurse Name: Joyce Roach RN Position: [facility] ED RN W/OE and Tasks Member Role: Primary Care Nurse Name: Lucina Peralta RN Position: [facility] RN Member Role: Primary Care Nurse Name: Maria Esther Craig LPN Position: [facility] RN Member Role: Primary Care Nurse Name: Kaye Comer RN Position: [facility] RN Member Role: Primary Care Nurse Name: Andres Pressley RN Position: [facility] RN Member Role: Primary Care Nurse Name: Jany Baig DO Position: [facility] Physician - Primary Care Member Role: PCP Address: Address: [address] [place] [address] Adult [place] [address]- Name: Mary Haines RN Position: [facility] RN Member Role: Primary Care Nurse Name: Garima Curry RN Position: [facility] RN Member Role: Primary Care Nurse Name: Malgorzata Austin Position: [facility] RN Member Role: Primary Care Nurse Name: Ibeth Adams RN Position: [facility] RN Member Role: Primary Care Nurse Name: Torrie Hernandez RN Position: [facility] OB RN Member Role: Primary Care Nurse Name: Gretchen Knutson RN Position: [facility] SN RN Member Role: Primary Care Nurse Name: Aislinn Mckee RN Position: [facility] RN Member Role: Primary Care Nurse Name: Ashley Mcelroy Position: [facility] RN Member Role: Primary Care Nurse Name: Ashok Kevin RN Position: [facility] RN Member Role: Primary Care Nurse Name: Cody Garcia Position: [facility] Associate Professional Member Role: Lifetime Consulting Provider Address: Address: [address] [place] [address] Name: Paige Nascimento RN Position: [facility] RN Member Role: Primary Care Nurse Name: Ge Covarrubias RN Position: [facility] RN Member Role: Primary Care Nurse Name: Orin Elmore RN Position: [facility] ED RN W/OE and Tasks Member Role: Primary Care Nurse Name: Allegra Liu RN Position: [facility] AMB Nurse Member Role: Primary Care Nurse Name: Shayan Pandya MD Position: [facility] Renal MD Member Role: Lifetime Consulting Physician Address: Address: [address] [place] [address] [address] [facility], [address] Name: Kimberley Pittman RN Position: [facility] RN Member Role: Primary Care Nurse Name: Darlene Rodrigez RN Position: [facility] RN Member Role: Primary Care Nurse Name: Dixie Duke RN Position: [facility] RN Member Role: Primary Care Nurse Name: Kwan Mills RN Position: [facility] ED RN W/OE and Tasks Member Role: Primary Care Nurse Name: Ingrid Verdugo RN Position: [facility] RN Member Role: Primary Care Nurse Name: Monica Rowell RN Position: [facility] RN Member Role: Primary Care Nurse Name: Jimi Fitzpatrick RN Position: [facility] RN Member Role: Primary Care Nurse Care Team Related Persons Name: MARLEN CABEZAS Address: home [address] [place] [address] Name: MARLEN CABEZAS Address: home [address] [place] [address] Name: NICK CABEZAS Name: GEMA CABEZAS Address: home [address] [place] [address] Name: ELTON CHENG Address: [address] [address] Name: LAURO QUEVEDO
[2023-12-15 20:58] LABS: Acetaminophen LAB < 3 mcg/mL (<30); Salicylate < 5.0 mg/dL (15-30)
--- OUTSIDE RECORDS SUMMARY | 2023-12-15 20:58 | XMS_ITS | Continuity of Care Document ---
Author Organization [facility] Address [address] [place] [address]- Care Team Providers Care Demurrage Clerk Name Role Phone Jany Baig DO Primary Care Physician Encounter [facility] Date(s): 09/24/22 - 10/24/22 [facility] [address] [place], [place] [address] Allergies, Adverse Reactions, Alerts Substance Reaction [...] n 1Result Comment: [facility]: [id number] 2Result Comment: [04/29/2017] 96999-363-12 3Admin Note: FLUARIX 4Admin Note: 3 RDINJ 5Admin Note: #2 Medications acamprosate 333 mg oral delayed release tablet 1 tablet = 333 mg, By Mouth, 3 times a day, # 42 tablet, 4 Refills, Maintenance, 10/24/22 9:53:00 EDT, EC Tablet, [facility], Partial fill upon patient request if the prescription is for a schedule II opioid drug., 175, cm, 10/21/22 20:41:00 E... Start Date: 10/24/22 Stop Date: 01/02/23 Status: Ordered amLODIPine 5 mg oral tablet 1 tablet, By Mouth, Daily, ^1R1., # 30 tablet, 2 Refills, Maintenance, 10/06/22 4:58:00 EDT, [facility], 176, cm, 09/07/22 8:56:00 EDT, Height, 82.1, kg, 09/07/22 8:59:00 EDT, Dry Weight Start Date: 10/06/22 Status: Ordered baclofen 10 mg oral tablet See Instructions, TAKE 1 TABLET BY MOUTH THREE TIMES DAILY, # 90 tablet, Refills 0, Maintenance, 08/07/22 12:26:00 EST, Instructions Replace Required Details, Route to Pharmacy Electronically, [facility], 176, cm, 08/07/22 11:37:00 EST, Height... Start Date: 08/07/22 Status: Ordered calcium (as carbonate)-vitamin D 500 mg-400 intl units oral tablet 1 tablet, By Mouth, Daily, ^1R1., # 28 tablet, 0 Refills, Maintenance, 10/08/22 16:58:00 EDT, [facility], 28, TAKE ONE TABLET BY [...] Gm, 11 Refills, Maintenance, 08/07/22 12:12:00 EST, [facility]/pharmacy #[id number], 30, USE 1 SPRAY(S) INTO EACH NOSTRIL TWICE A DAY, 176, cm,08/07/22 11:37:00 EST, Height, 79.8, kg, 07/31/22 2... Start Date: 08/07/22 Status: Ordered folic acid 1 mg oral tablet 1, tablet, By Mouth, Daily, R1., # 30 tablet, Refills 5, Tot. Refills 5, Maintenance, 10/06/22 4:59:00 EDT, Route to Pharmacy Electronically, [facility], 176, cm, 09/07/22 8:56:00 EDT, [...] 09/03/22 14:50:00 EDT, Route to Pharmacy Electronically, [facility], 169, cm, 09/03/22 14:21:00 EDT, Height, 69, kg, 08/16/22 1:04:00 EST, Dry Weight Start Date: 09/03/22 Status: Ordered gabapentin 300 mg oral capsule 300 mg, 1, capsule, By Mouth, 2 times a day, note dose/frequency change, # 180 capsule, Refills 4, Tot. Refills 4, Maintenance, 09/03/22 14:55:00 EDT, Route to Pharmacy Electronically, [facility], 169, cm, 09/03/22 14:21:00 EDT, Height, 69, kg... Start Date: 09/03/22 Stop Date: 11/27/23 Status: Ordered hydrOXYzine hydrochloride 10 mg oral tablet 2 tablet, By Mouth, 2 times a day, PRN NEEDED FOR ANXIETY (VIAL), # 30 tablet, 3 Refills, Maintenance, 09/24/22 17:01:00 EDT, [facility], 176, cm, 09/07/22 8:56:00 EDT, Height, 82.1, kg, 09/07/22 8:59:00 EDT, Dry Weight Start Date: 09/24/22 Status: Ordered lactulose 10 gm/15 ml oral syrup 15 mL, By Mouth, 2 times a day, # 120 mL, 6 Refills, Maintenance, 09/22/22 12:15:00 EDT, [facility], 4, TAKE 15ML BY MOUTH TWO TIMES A DAY, 176, cm, 09/07/22 8:56:00 EDT, Height, 82.1, kg, 09/07/22 8:59:00 EDT, Dry Weight Start Date: 09/22/22 Status: Ordered Lidoderm 5% film 1 patch, Topically, Daily, remove patches after 12 hours NSAIDS contraindicated High dose tylenol contraindicated remove patches after 12 hours Nueropathy, # 30 patch, 5 Refills, Maintenance, 09/03/22 16:34:00 EDT, [facility], Partial klaudia... Start Date: 09/03/22 Status: Ordered Melatonin 3 mg oral tablet 1 tablet, By Mouth, Daily at bedtime, PRN NEEDED FOR INSOMNIA (PACKAGE IN TRAY)^1R4, # 60 tablet, 5 Refills, Maintenance, 06/12/22 18:11:00 EST, [facility], 60, TAKE 1 TABLET BY MOUTH [...] 09/03/22 14:53:00 EDT, Route to Pharmacy Electronically, [facility], Partial fill upon patient request if the prescription is for a schedule II opioid drug... Start Date: 09/03/22 Stop Date: 03/02/23 Status: Ordered pyridoxine 50 mg oral tablet 50 mg, 1, tablet, By Mouth, Daily, for 90 days, # 90 tablet, Refills 4, Tot. Refills 4, Acute 01/15/23 11:42:00 EDT, 10/22/21 11:42:00 EDT, [facility], Partial fill upon patient request if [...] 10/24/22 9:56:00 EDT, Route to Pharmacy Electronically, [facility], Partial fill upon patient request if the prescription is for a schedule II opioid drug.... Start Date: 10/24/22 Status: Ordered Tab-A-Jesse oral tablet 1 tablet, By Mouth, Daily, # 90 tablet, 9 Refills, 08/07/22 12:27:00 EST, [facility]/pharmacy #[id number], 28, 1tablet By Mouth Daily, 176, cm, 08/07/22 11:37:00 EST, Height, 79.8, kg, 07/31/22 22:40:00 EST, DryWeight Start Date: 08/07/22 Status: Ordered traZODone 50 mg oral tablet 2 tablets, By Mouth, Daily at bedtime, # 60 each, Refills 5, Tot. Refills 5, Maintenance, 09/03/22 17:13:00 EDT, Route to Pharmacy Electronically, [facility], 169, cm, 09/03/22 14:21:00 EDT, Height, 69, kg, 08/16/22 1:04:00 EST, Dry Weight Start Date: 09/03/22 Status: Ordered Vitamin B1 100 mg oral tablet 1, tablet, By Mouth, Daily, # 90 tablet, Refills 3, Maintenance, 03/13/22 8:37:00 EDT, Route to Pharmacy Electronically, [facility], 175, cm, 01/06/22 10:34:00 EDT, Height, [...] tablet, 3 Refills, Maintenance, 10/01/22 15:19:00 EDT, [facility], 176, cm, 09/07/22 8:56:00 EDT, Height, [...] Member Role: Primary Care Nurse Name: Garima Manzaon RN Position: S RN Member Role: Primary [...] Baig DO Position: [facility] Primary Care Physician Member Role: PCP Address: Address: [address] [place] [address] Adult & [place] [address]- Name: Neida Ballard RN Position: [facility] RN Member Role: Primary Care Nurse Name: Kaye Payne RN [facility] [...] Role: Lifetime Consulting Provider Address: Address: [address] [place] [id number]- Name: Ge Covarrubias RN Position: [facility] RN Member Role: Primary Care Nurse Name: Orin Elmore RN Position: [facility] ED RN W/OE and Tasks Member Role: Primary Care Nurse Name: Allegra Liu RN Position: [facility] PCO RN Member Role: Primary Care Nurse Name: Shayan Pandya MD Position: [facility] Renal MD Member Role: Lifetime Consulting Physician Address: Address: [address] [facility] [address] [facility], [place] [address]- Name: Darlene Rodrigez RN Position: [facility] RN Member Role: Primary Care Nurse Name: Kwan Mills RN Position: [facility] RN Member Role: Primary Care Nurse Name: Dolores Can RN Position: [facility] RN Member Role: Primary Care Nurse Name: Kim Rendon RN Position: [facility] RN Member Role: Primary Care Nurse Name: Monica Rowell RN Position: [facility] RN Member Role: Primary Care Nurse Name: Jimi Fitzpatrick RN Position: [facility] RN Member Role: Primary Care Nurse Care Team Related Persons Name: MARLEN ACBEZAS Address: [address] [place] [address] Name: MARLEN CABEZAS Address: [address] [place] [address] Name: NICK CABEZAS Name: GEMA CABEZAS Address: [address] [place] [address]
--- OUTSIDE RECORDS SUMMARY | 2023-12-15 20:58 | XMS_ITS | Continuity of Care Document ---
Author Organization [facility] Address [address] [place] [address] [address], [address] [place] [address]- Care Team Providers Care Technical Buyer Name Role Phone Jany Baig DO Primary Care Physician Encounter [facility] Date(s): 07/31/22 - 09/24/22 [facility] [address] [place] [address] Drive, [address] [place] [address]- Attending Physician: Not on Staff, Attending MD [...] n 1Result Comment: [facility]: [id number] 2Result Comment: [04/29/2017] [id number] 3Admin Note: FLUARIX 4Admin Note: 3 RDINJ 5Admin Note: #2 Medications acamprosate 333 mg oral delayed release tablet 1 tablet = 333 mg, By Mouth, 3 times a day, # 90 tablet, 4 Refills, Maintenance, 09/03/22 14:59:00 EDT, EC Tablet, [facility], Partial fill upon patient request if the prescription is for a schedule II opioid drug., 169, cm, 09/03/22 14:21:00... Start Date: 09/03/22 Status: Ordered amLODIPine 5 mg oral tablet See Instructions, TAKE 1 TABLET BY MOUTH ONCE A DAY^1R1, # 30 tablet, 5 Refills, Maintenance, 05/13/22 16:24:00 EST, [facility], 175, cm, 04/09/22 15:34:00 EDT, Height, 78.3, kg, 12/26/21 19:05:00 EDT, Dry Weight Start Date: 05/13/22 Status: Ordered baclofen 10 mg oral tablet See Instructions, TAKE 1 TABLET BY MOUTH THREE TIMES DAILY, # 90 tablet, Refills 0, Maintenance, 08/07/22 12:26:00 EST, Instructions Replace Required Details, [facility], 176, cm, 08/07/22 11:37:00 EST, Height... Start Date: 08/07/22 Status: Ordered calcium (as carbonate)-vitamin D 500 mg-400 intl units oral tablet 1 tablet, By Mouth, Daily, ^1R1., # 30 tablet, 0 Refills, Maintenance, 09/22/22 12:15:00 EDT, [facility], 30, TAKE ONE TABLET BY MOUTH EVERY DAY ^1R1, 176, cm, 09/07/22 8:56:00 EDT, Height, 82.1, kg, 09/07/22 8:59:00 EDT, Dry Weight Start Date: 09/22/22 Status: Ordered Co Q-10 100 mg oral capsule See Instructions, TAKE 1 CAPSULE BY MOUTH FOUR TIMES DAILY, # 120 capsule, 6 Refills, Maintenance, 08/07/22 12:13:00 EST, [facility], 176, cm, 08/07/22 11:37:00 EST, [...] Gm, 11 Refills, Maintenance, 08/07/22 12:12:00 EST, [facility]/pharmacy #[id number], 30, USE 1 SPRAY(S) INTO EACH NOSTRIL TWICE A DAY, 176, cm,08/07/22 11:37:00 EST, Height, 79.8, kg, 07/31/22 2... Start Date: 08/07/22 Status: Ordered folic acid 1 mg oral tablet 1 mg, 1, tablet, By Mouth, Daily, # 90 tablet, Refills 4, Tot. Refills 4, Maintenance, 10/27/21 10:40:00 EDT, Route to Pharmacy Electronically, [facility], Partial fill upon patient request if the prescription is for a schedule II opioid drug.... Start Date: 10/27/21 Stop Date: 01/20/23 Status: Ordered furosemide 20 mg oral tablet 1, tablet, By Mouth, Daily, R1., # 30 tablet, Refills 5, Tot. Refills 5, Maintenance, 09/03/22 14:50:00 EDT, [facility], 169, cm, 09/03/22 14:21:00 EDT, Height, 69, kg, 08/16/22 1:04:00 EST, Dry Weight Start Date: 09/03/22 Status: Ordered gabapentin 300 mg oral capsule 300 mg, 1, capsule, By Mouth, 2 times a day, note dose/frequency change, # 180 capsule, Refills 4, Tot. Refills 4, Maintenance, 09/03/22 14:55:00 EDT, [facility], 169, cm, 09/03/22 14:21:00 EDT, Height, 69, kg... Start Date: 09/03/22 Stop Date: 11/27/23 Status: Ordered hydrOXYzine hydrochloride 10 mg oral tablet 2 tablet, By Mouth, 2 times a day, PRN NEEDED FOR ANXIETY (VIAL), # 30 tablet, 3 Refills, Maintenance, 09/24/22 17:01:00 EDT, [facility], 176, cm, 09/07/22 8:56:00 EDT, Height, 82.1, kg, 09/07/22 8:59:00 EDT, Dry Weight Start Date: 09/24/22 Status: Ordered lactulose 10 gm/15 ml oral syrup 15 mL, By Mouth, 2 times a day, # 120 mL, 6 Refills, Maintenance, 09/22/22 12:15:00 EDT, [facility], 4, TAKE 15ML BY MOUTH TWO TIMES A DAY, 176, cm, 09/07/22 8:56:00 EDT, Height, 82.1, kg, 09/07/22 8:59:00 EDT, Dry Weight Start Date: 09/22/22 Status: Ordered Lidoderm 5% film 1 patch, Topically, Daily, remove patches after 12 hours NSAIDS contraindicated High dose tylenol contraindicated remove patches after 12 hours Nueropathy, # 30 patch, 5 Refills, Maintenance, 09/03/22 16:34:00 EDT, [facility], Partial klaudia... Start Date: 09/03/22 Status: Ordered magnesium oxide 400 mg oral tablet 1 tablet, By Mouth, 2 times a day, # 60 tablet, 11 Refills, Maintenance, 03/13/22 8:37:00 EDT, [facility], 175, cm, 01/06/22 10:34:00 EDT, Height, 78.3, kg, 12/26/21 19:05:00 EDT, Dry Weight Start Date: 03/13/22 Status: Ordered Melatonin 3 mg oral tablet 1 tablet, By Mouth, Daily at bedtime, PRN NEEDED FOR INSOMNIA (PACKAGE IN TRAY)^1R4, # 60 tablet, 5 Refills, Maintenance, 06/12/22 18:11:00 EST, [facility], 60, TAKE 1 [...] 09/03/22 14:53:00 EDT, Route to Pharmacy Electronically, [facility], Partial fill upon patient request if the prescription is for a schedule II opioid drug... Start Date: 09/03/22 Stop Date: 03/02/23 Status: Ordered PHENobarbital 30 mg oral tablet See Instructions, Taper 09/08-Day 1 -90mg Daily Day 2-3-60mg BID Day 4-5 30mg BID, # 15 tablet, 0 Refills, Maintenance, 09/08/22 15:05:00 EDT, [facility], Partial fill upon patient request if the prescription is for a schedule II op... Start Date: 09/08/22 Status: Ordered pyridoxine 50 mg oral tablet 50 mg, 1, tablet, By Mouth, Daily, for 90 days, # 90 tablet, Refills 4, Tot. Refills 4, Acute 01/15/23 11:42:00 EDT, 10/22/21 11:42:00 EDT, Route to Pharmacy Electronically, [facility], Partial fill upon patient request if [...] 90 tablet, 9 Refills, 08/07/22 12:27:00 EST, [facility]/pharmacy #[id number], 28, 1tablet By Mouth Daily, 176, cm, 08/07/22 11:37:00 EST, Height, 79.8, kg, 07/31/22 22:40:00 EST, DryWeight Start Date: 08/07/22 Status: Ordered traZODone 50 mg oral tablet 2 tablets, By Mouth, Daily at bedtime, # 60 each, Refills 5, Tot. Refills 5, Maintenance, 09/03/22 17:13:00 EDT, Route to Pharmacy Electronically, [facility], 169, cm, 09/03/22 14:21:00 EDT, Height, 69, kg, 08/16/22 1:04:00 EST, Dry Weight Start Date: 09/03/22 Status: Ordered Vitamin B1 100 mg oral tablet 1, tablet, By Mouth, Daily, # 90 tablet, Refills 3, Maintenance, 03/13/22 8:37:00 EDT, Route to Pharmacy Electronically, [facility], 175, cm, 01/06/22 10:34:00 EDT, Height, 78.3, kg, 12/26/2218:05:00 EDT, Dry Weight Start Date: 03/13/22 Status: Ordered Xifaxan 550 mg oral tablet 1 tablet, By Mouth, 2 times a day, ^1R1,1R4., # 60 tablet, 0 Refills, Maintenance, 09/22/22 12:15:00 EDT, [facility], 176, cm, 09/07/22 8:56:00 EDT, Height, [...] Team Personnel Name: Alexandra Colmenares RN Position: [facility] ED RN W/OE and Tasks Member Role: Primary Care Nurse Name: Garima Manzano RN Position: [facility] RN Member Role: Primary Care Nurse Name: Malgorzata Marinelli RN Position: [facility] RN Member Role: Primary Care Nurse Name: Joyce Roach RN Position: [facility] RN Member Role: Primary Care Nurse Name: Mary Suazo RN Position: [facility] RN Member Role: Primary Care Nurse Name: Andres Pressley RN Position: [facility] RN Member Role: Primary Care Nurse Name: Jany Baig DO Position: [facility] Primary Care Physician Member Role: PCP Address: Address: [address] [place] [address] Adult & [place] [address]- Name: Neida Ballard RN Position: [facility] RN Member Role: Primary Care Nurse Name: Kaye Payne RN Position: [facility] RN Member Role: Primary Care Nurse Name: Garima Hutchinson Position: [facility] RN Member Role: Primary Care Nurse Name: Malgorzata Austin Position: [facility] RN Member Role: Primary Care Nurse Name: Torrie Hernandez RN Position: [facility] OB RN Member Role: Primary Care Nurse Name: Gretchen Knutson RN Position: [facility] SN RN Member Role: Primary Care Nurse Name: Aislinn Mckee RN Position: [facility] RN Member Role: Primary Care Nurse Name: Ashley Mcelroy Position: [facility] RN Member Role: Primary Care Nurse Name: Cody Garcia Position: [facility] Associate Professional Member Role: Lifetime Consulting Provider Address: Address: [address] [place] [address]- [place] Name: Ge Covarrubias RN Position: [facility] RN Member Role: Primary Care Nurse Name: Orin Elmore RN Position: [facility] ED RN W/OE and Tasks Member Role: Primary Care Nurse Name: Allegra Liu RN Position: [facility] PCO RN Member Role: Primary Care Nurse Name: Shayan Pandya MD Position: [facility] Renal MD Member Role: Lifetime Consulting Physician Address: Address: [address] [facility] [place] [address]- Name: Darlene Rodrigez RN Position: S RN [...] Persons Name: MARLEN CABEZAS Address: home [address] [place] [id number] Name: MARLEN CABEZAS Address: [address] [place] [address] Name: NICK CABEZAS Name: GEMA CABEZAS Address: home [address] [place] [id number]
--- OUTSIDE RECORDS SUMMARY | 2023-12-15 20:58 | XMS_ITS | Continuity of Care Document ---
Author Organization [facility] Address [address] [place] [address]- Care Team Providers Care Repulping Supervisor Name Role Phone Jany Baig DO Primary Care Physician ( [phone] Encounter [facility] Date(s): 02/27/22 - 03/29/22 [facility] [address] [place] [address]- Allergies, Adverse Reactions, Alerts Substance Reaction Severity [...] R ecorded influenza virus vaccine, inactivated 03/10/21 Inkhil rded influenza virus vaccine, inactivated 03/01/20 Nikhil [...] (oldterm) 08/02/12 Give n 1Result Comment: [04/29/2017] [id number] 2Admin Note: FLUARIX 3Admin Note: 3 RDINJ 4Admin Note: #2 Medications acetaminophen 500 mg oral tablet 1 tablet, By Mouth, 4 times a day, PRN NEEDED FOR PAIN, MAX 4, PER DAY (VIAL., # 50 tablet, 11 Refills, Maintenance, 03/13/22 8:37:00 EDT, [facility], 175, cm, 01/06/22 10:34:00 EDT, Height, 78.3, kg, 12/26/21 19:05:00 EDT, Dry Weight Start Date: 03/13/22 Status: Ordered amLODIPine 5 mg oral tablet 5 mg, 1, tablet, By Mouth, Daily, # 30 tablet, Refills 5, Tot. Refills 5, Maintenance, 10/21/21 10:15:00 EDT, Route to Pharmacy [facility]ically, [facility], Partial fill upon patient request if the prescription is for a schedule II opioid drug.... Start Date: 10/21/21 Status: Ordered Co Q-10 100 mg oral capsule 1 capsule, By Mouth, 4 times a day, # 120 capsule, 5 Refills, Maintenance, 02/18/22 12:44:00 EDT, [facility], 175, cm, 01/06/22 10:34:00 EDT, Height, [...] Gm, 5 Refills, Maintenance, 02/18/22 10:02:00 EDT, [facility], 30, USE 1 SPRAY(S) INTO EACH NOSTRIL TWICE A DAY, 175, cm, 01/06/22 10:34:00 EDT, Height, 78.3, kg, 12/26/21 19... Start Date: 02/18/22 Status: Ordered folic acid 1 mg oral tablet 1 mg, 1, tablet, By Mouth, Daily, # 90 tablet, Refills 4, Tot. Refills 4, Maintenance, 10/27/21 10:40:00 EDT, Route to Pharmacy Electronically, [facility], Partial fill upon patient request if the prescription is for a schedule II opioid drug.... Start Date: 10/27/21 Stop Date: 01/20/23 Status: Ordered furosemide 20 mg oral tablet 1, tablet, By Mouth, 2 times a day, # 60 tablet, Refills 2, Tot. Refills 2, Maintenance, 03/19/22 9:46:00 EDT, Route to Pharmacy Electronically, [facility], 175, cm, 01/06/22 10:34:00 EDT, Height, 78.3, kg, 12/26/21 19:05:00 EDT, Dry Weight Start Date: 03/19/22 Stop Date: 06/17/22 Status: Ordered gabapentin 300 mg oral capsule 600 mg, 2, capsule, By Mouth, Daily at bedtime, note dose change, # 180 capsule, Refills 4, Tot. Refills 4, Maintenance, 03/04/22 10:17:00 EDT, Route to Pharmacy Electronically, [facility] #[id number], Partial fill upon patient request if the prescription... Start Date: 03/04/22 Stop Date: 05/28/23 Status: Ordered hydrOXYzine hydrochloride 25 mg oral tablet 1 TO 2 TABLETS, By Mouth, 3 times a day, PRN NEEDED FOR ANXIETY (VIAL), # 60 tablet, 11 Refills,Maintenance, 03/13/22 8:38:00 EDT, [facility], 175, cm, 01/06/22 10:34:00 EDT, Height, 78.3, kg, 12/26/21 19:05:00 EDT, Dry Weight Start Date: 03/13/22 Status: Ordered lactulose 10 gm/15 ml oral syrup See Instructions, TAKE 30ML BY MOUTH THREE TIMES DAILY NEEDED TO ACHEIVE 3-4 BOWL MOVEMENTS PER DAY, # 3,000 mL, 10 Refills, [facility], 30, TAKE 30ML BY MOUTH THREE TIMES DAILY NEEDED TO ACHEIVE 3-4 BOWL MOVEMENTS PER DAY, 174, cm, 02/12... Start Date: 07/02/21 Status: Ordered lidocaine 0.5% topical gel 1 application, Topically, 3 times a day, # 120 Gm, 0 Refills, Acute 12/30/22 17:23:00 EDT, 12/30/2216:23:00 EDT, Gel, [facility], Partial fill upon patient request if the prescription is fora schedule II opioid drug., 1 application Topically... Start Date: 12/30/21 Stop Date: 12/30/22 Status: Ordered Lidoderm 5% film 1 patch, Topically, Daily, remove patches after 12 hours NSAIDS contraindicated High dose tylenol contraindicated, # 30 patch, 5 Refills, Maintenance, 12/26/21 9:33:00 EDT, [facility], Partial fill upon patient request if the prescription i... Start Date: 12/26/21 Status: Ordered magnesium oxide 400 mg oral tablet 1 tablet, By Mouth, 2 times a day, # 60 tablet, 11 Refills, Maintenance, 03/13/22 8:37:00 EDT, [facility], 175, cm, 01/06/22 10:34:00 EDT, Height, 78.3, kg, 12/26/21 19:05:00 EDT, Dry Weight Start Date: 03/13/22 Status: Ordered Melatonin 3 mg oral tablet 1 tablet, By Mouth, Daily at bedtime, PRN NEEDED FOR INSOMNIA (PACKAGE IN TRAY), # 60 tablet, 5 Refills, Maintenance, 06/02/21 16:17:00 EST, [facility], 28, 1 tablet By [...] tablet, 1 Refills, Maintenance, 03/13/22 12:37:00 EDT, [id number], 175, cm, 01/06/22 10:34:00 EDT, Height, 78.3, kg, 12/26/21 19:05:00 EDT, Dry Weight Start Date: 03/13/22 Status: Ordered pyridoxine 50 mg oral tablet 50 mg, 1, tablet, By Mouth, Daily, for 90 days, # 90 tablet, Refills 4, Tot. Refills 4, Acute 01/15/23 11:42:00 EDT, 10/22/21 11:42:00 EDT, Route to Pharmacy Electronically, [facility], Partial fill upon patient request if [...] 0 Refills, Maintenance, 03/12/22 17:21:00 EDT, Tablet, [facility] #[id number], Partial fill upon patient request if the prescription is for a schedule II opioid drug., 175, cm,... Start Date: 03/12/22 Status: Ordered Tab-A-Jesse oral tablet 1 tablet, By Mouth, Daily, # 90 tablet, 9 Refills, [facility], 28, TAKE 1 TABLET BY MOUTH ONCE A DAY, 174, cm, 07/14/21 8:16:00 EST, Height, 81, kg, 02/27/21 14:06:00 EDT, Dry Weight Start Date: 07/22/21 Status: Ordered traZODone 50 mg oral tablet See Instructions, TAKE 1 TO 2 TABLETS BY MOUTH AT BEDTIME (ONE DOSE IN VIAL), # 60 tablet, Refills 0, Instructions Replace Required Details, Route to Pharmacy Electronically, [facility], 175,cm, 01/06/22 10:34:00 EDT, Height, 78.3, kg, ... Start Date: 01/30/22 Status: Ordered traZODone 50 mg oral tablet See Instructions, TAKE 2-3 TABLETS BY MOUTH AT BEDTIME (ONE DOSE IN VIAL), # 90 tablet, Refills 5, Tot. Refills 5, Maintenance, 12/26/21 9:21:00 EDT, Instructions Replace Required Details, Route to Pharmacy Electronically, [facility], 170, cm,... Start Date: 12/26/21 Status: Ordered Vitamin B1 100 mg oral tablet 1, tablet, By Mouth, Daily, # 90 tablet, Refills 3, Maintenance, 03/13/22 8:37:00 EDT, Route to Pharmacy Electronically, [facility], 175, cm, 01/06/22 10:34:00 EDT, Height, 78.3, kg, 12/26/2218:05:00 EDT, Dry Weight Start Date: 03/13/22 Status: Ordered Xifaxan 550 mg oral tablet 1 tablet, By Mouth, 2 times a day, # 60 tablet, 2 Refills, [facility], 175, cm, 01/06/22 10:34:00 EDT, Height, [...] Personnel Name: Jany Baig DO Address: Address: [address] [place] [address] Adult & Pediatric [place], [place] [address]
--- OUTSIDE RECORDS SUMMARY | 2023-12-15 20:58 | XMS_ITS | Continuity of Care Document ---
Author Organization [facility] Address [address] [place] [address] [address] [place] [address]- Care Team Providers Care Logistics Lead Name Role Phone Jany Baig DO Primary Care Physician Encounter [facility] Date(s): 06/09/22 - 07/24/22 [facility] [address] [place] [address]- Attending Physician: Lorraine WILSON, January Colindres Referring Physician: Jany Baig DO Allergies, Adverse [...] Give n 1Result Comment: [facility]: [id number] 2Result Comment: [04/29/2017] [id number] 3Admin Note: FLUARIX 4Admin Note: 3 RDINJ 5Admin Note: #2 Medications acetaminophen 500 mg oral tablet 1 tablet, By Mouth, 4 times a day, PRN NEEDED FOR PAIN, MAX 4, PER DAY (VIAL., # 50 tablet, 11 Refills, Maintenance, 03/13/22 8:37:00 EDT, [facility], 175, cm, 01/06/22 10:34:00 EDT, Height, 78.3, kg, 12/26/21 19:05:00 EDT, Dry Weight Start Date: 03/13/22 Status: Ordered amLODIPine 5 mg oral tablet See Instructions, TAKE 1 TABLET BY MOUTH ONCE A DAY^1R1, # 30 tablet, 5 Refills, Maintenance, 05/13/22 16:24:00 EST, [facility], 175, cm, 04/09/22 15:34:00 EDT, Height, 78.3, kg, 12/26/21 19:05:00 EDT, Dry Weight Start Date: 05/13/22 Status: Ordered Co Q-10 100 mg oral capsule 1 capsule, By Mouth, 4 times a day, # 120 capsule, 5 Refills, Maintenance, 04/09/22 15:55:00 EDT, [facility], 175, cm, 04/09/22 15:34:00 EDT, Height, [...] Gm, 5 Refills, Maintenance, 02/18/22 10:02:00 EDT, [facility], 30, USE 1 SPRAY(S) INTO EACH NOSTRIL TWICE A DAY, 175, cm, 01/06/22 10:34:00 EDT, Height, 78.3, kg, 12/26/21 19... Start Date: 02/18/22 Status: Ordered folic acid 1 mg oral tablet 1 mg, 1, tablet, By Mouth, Daily, # 90 tablet, Refills 4, Tot. Refills 4, Maintenance, 10/27/21 10:40:00 EDT, Route to Pharmacy Electronically, [facility], Partial fill upon patient request if the prescription is for a schedule II opioid drug.... Start Date: 10/27/21 Stop Date: 01/20/23 Status: Ordered furosemide 20 mg oral tablet 1, tablet, By Mouth, Daily, R1., # 30 tablet, Refills 5, Tot. Refills 5, Maintenance, 07/18/22 7:52:00 EST, Route to Pharmacy Electronically, [facility], 179, cm, 07/01/22 13:29:00 EST, Height, [...] 60 tablet, 11 Refills,Maintenance, 03/13/22 8:38:00 EDT, [facility], 175, cm, 01/06/22 10:34:00 EDT, Height, 78.3, kg, 12/26/21 19:05:00 EDT, Dry Weight Start Date: 03/13/22 Status: Ordered lactulose 10 gm/15 ml oral syrup See Instructions, TAKE 30ML BY MOUTH THREE TIMES DAILY NEEDED TO ACHEIVE 3-4 BOWL MOVEMENTS PER DAY, # 3,000 mL, 10 Refills, [facility], 30, TAKE 30ML BY MOUTH THREE TIMES DAILY NEEDED TO ACHEIVE 3-4 BOWL MOVEMENTS PER DAY, 174, cm, 02/12... Start Date: 07/02/21 Status: Ordered lidocaine 0.5% topical gel 1 application, Topically, 3 times a day, # 120 Gm, 0 Refills, Acute 12/30/22 17:23:00 EDT, 12/30/2216:23:00 EDT, Gel, [facility], Partial fill upon patient request if the prescription is fora schedule II opioid drug., 1 application Topically... Start Date: 12/30/21 Stop Date: 12/30/22 Status: Ordered Lidoderm 5% film 1 patch, Topically, Daily, remove patches after 12 hours NSAIDS contraindicated High dose tylenol contraindicated, # 30 patch, 5 Refills, Maintenance, 12/26/21 9:33:00 EDT, [facility], Partial fill upon patient request if the prescription i... Start Date: 12/26/21 Status: Ordered magnesium oxide 400 mg oral tablet 1 tablet, By Mouth, 2 times a day, # 60 tablet, 11 Refills, Maintenance, 03/13/22 8:37:00 EDT, [facility], 175, cm, 01/06/22 10:34:00 EDT, Height, 78.3, kg, 12/26/21 19:05:00 EDT, Dry Weight Start Date: 03/13/22 Status: Ordered Melatonin 3 mg oral tablet 1 tablet, By Mouth, Daily at bedtime, PRN NEEDED FOR INSOMNIA (PACKAGE IN TRAY)^1R4, # 60 tablet, 5 Refills, Maintenance, 06/12/22 18:11:00 EST, [facility], 60, TAKE 1 TABLET BY MOUTH AT BEDTIME NEEDED FOR INSOMNIA (PACKAGE IN TRAY)^1R4,... Start Date: 06/12/22 Status: Ordered MiraLax Powder 1 pack/packet = 17 Gm, By Mouth, 2 times a day, PRN Constipation, 0 Refills, Maintenance, 08/28/21 10:25:00 EDT, Powder, Partial fill upon patient request if the prescription is for a schedule II opioid drug. Start Date: 08/28/21 Status: Ordered NuLYTELY with Flavor Packs oral powder for reconstitution See Instructions, per GI office, # 4,000 mL, 0 Refills, Maintenance, 07/24/22 22:07:00 EST, [facility], Partial fill upon patient request [...] 04/09/22 16:00:00 EDT, Route to Pharmacy Electronically, [facility], Partial fill upon patient requestif the prescription is for a schedule II opioid remedios... Start Date: 04/09/22 Stop Date: 10/06/22 Status: Ordered Potassium Chloride (Eqv-K-Tab) 20 mEq oral tablet, extended release 2 tablet, By Mouth, Daily, # 180 tablet, 1 Refills, Maintenance, 05/13/22 9:48:00 EST, [facility], 175, cm, 04/09/22 15:34:00 EDT, Height, 78.3, kg, 12/26/21 19:05:00 EDT, Dry Weight Start Date: 05/13/22 Stop Date: 11/09/22 Status: Ordered pyridoxine 50 mg oral tablet 50 mg, 1, tablet, By Mouth, Daily, for 90 days, # 90 tablet, Refills 4, Tot. Refills 4, Acute 01/15/23 11:42:00 EDT, 10/22/21 11:42:00 EDT, Route to Pharmacy Electronically, [facility], Partial fill upon patient request if [...] 0 Refills, Maintenance, 03/12/22 17:21:00 EDT, Tablet, [facility] #[id number], Partial fill upon patient request if the prescription is for a schedule II opioid drug., 175, cm,... Start Date: 03/12/22 Status: Ordered Tab-A-Jesse oral tablet 1 tablet, By Mouth, Daily, # 90 tablet, 9 Refills, [facility], 28, TAKE 1 TABLET BY MOUTH ONCE A DAY, 174, cm, 07/14/21 8:16:00 EST, Height, 81, kg, 02/27/21 14:06:00 EDT, Dry Weight Start Date: 07/22/21 Status: Ordered traZODone 50 mg oral tablet 2 TO 3 TABLETS, By Mouth, Daily at bedtime, #28 VIAL)^2R4., # 90 tablet, Refills 5, Maintenance, 06/12/22 18:11:00 EST, Route to Pharmacy Electronically, [facility], 179, cm, 06/08/22 7:37:00EST, Height, 84, kg, 06/01/22 12:27:00 EST, Dry Weight Start Date: 06/12/22 Status: Ordered Vitamin B1 100 mg oral tablet 1, tablet, By Mouth, Daily, # 90 tablet, Refills 3, Maintenance, 03/13/22 8:37:00 EDT, Route to Pharmacy Electronically, [facility], 175, cm, 01/06/22 10:34:00 EDT, Height, 78.3, kg, 12/26/2218:05:00 EDT, Dry Weight Start Date: 03/13/22 Status: Ordered Xifaxan 550 mg oral tablet 1 tablet, By Mouth, 2 times a day, ^1R1,1R4., # 60 tablet, 1 Refills, Maintenance, 06/12/22 18:10:00 EST, [facility], 179, cm, 06/08/22 7:37:00 EST, [...] Team Personnel Name: Alexandra Colmenares RN Position: [facility] ED RN W/OE and Tasks Member Role: Primary Care Nurse Name: Garima Manzano RN Position: [facility] RN Member Role: Primary Care Nurse Name: Malgorzata Marinelli RN Position: [facility] RN Member Role: Primary Care Nurse Name: Joyce Roach RN Position: [facility] RN Member Role: Primary Care Nurse Name: Mary Suazo RN Position: [facility] RN Member Role: Primary Care Nurse Name: Danyel Davis RN Position: [facility] RN Member Role: Primary Care Nurse Name: Andres Pressley RN Position: [facility] RN Member Role: Primary Care Nurse Name: Jany Baig DO Position: [facility] Primary Care Physician Member Role: PCP Address: Address: [address] [place] [address] Adult & [place] [address]- Name: Neida Ballard RN Position: [facility] RN Member Role: Primary Care Nurse Name: Kaye Payne RN Position: [facility] RN Member Role: Primary Care Nurse Name: Garima Hutchinson Position: [facility] RN Member Role: Primary Care Nurse Name: Malgorzata Austin Position: [facility] RN Member Role: Primary Care Nurse Name: Torrie Hernandez RN Position: [facility] OB RN Member Role: Primary Care Nurse Name: Gretchen Knutson RN Position: [facility] SN RN Member Role: Primary Care Nurse Name: Aislinn Mckee RN Position: [facility] RN Member Role: Primary Care Nurse Name: Ashley Mcelroy Position: [facility] RN Member Role: Primary Care Nurse Name: Cody Garcia Position: [facility] Associate Professional Member Role: Lifetime Consulting Provider Address: Address: [address] [place] [address] Name: Ge Covarrubias RN Position: [facility] RN Member Role: Primary Care Nurse Name: Orin Elmore RN Position: [facility] ED RN W/OE and Tasks Member Role: Primary Care Nurse Name: Allegra Liu RN Position: [facility] PCO RN Member Role: Primary Care Nurse Name: Shayan Pandya MD Position: [facility] Renal MD Member Role: Lifetime Consulting Physician Address: Address: [address] [place] [address] [address] [facility] [place] [address]- Name: Darlene Rodrigez RN Position: [facility] RN Member Role: Primary Care Nurse Name: Kwan Mills RN Position: [facility] RN Member Role: Primary Care Nurse Name: Dolores Can RN Position: [facility] RN Member Role: Primary Care Nurse Name: Kim Rendon RN Position: [facility] RN Member Role: Primary Care Nurse Name: Monica Rowell RN Position: [facility] RN Member Role: Primary Care Nurse Care Team Related Persons Name: MARLEN CABEZAS Address: home [address] [place] [address] Name: MARLEN CABEZAS Address: home [address] [place] [address] Name: CANICK WASHBURN Name: GEMA CABEZAS Address: home [address] [place] [address]
--- OUTSIDE RECORDS SUMMARY | 2023-12-15 20:58 | XMS_ITS | Continuity of Care Document ---
Author Organization [facility] Address [address] [place] [address]- Care Team Providers Care Retail Associate Manager Bilingual Name Role Phone Jany Baig DO Primary Care Physician Encounter [facility] Date(s): 07/03/22 - 08/02/22 [facility] [address] [place] [address]- Allergies, Adverse Reactions, Alerts Substance Reaction Severity [...] AFF[facility]: [id number] 2Result Comment: [04/29/2017] [id number] 3Admin Note: FLUARIX 4Admin Note: 3 RDINJ 5Admin Note: #2 Medications acetaminophen 500 mg oral tablet 1 tablet, By Mouth, 4 times a day, PRN NEEDED FOR PAIN, MAX 4, PER DAY (VIAL., # 50 tablet, 11 Refills, Maintenance, 03/13/22 8:37:00 EDT, [facility], 175, cm, 01/06/22 10:34:00 EDT, Height, 78.3, kg, 12/26/21 19:05:00 EDT, Dry Weight Start Date: 03/13/22 Status: Ordered amLODIPine 5 mg oral tablet See Instructions, TAKE 1 TABLET BY MOUTH ONCE A DAY^1R1, # 30 tablet, 5 Refills, Maintenance, 05/13/22 16:24:00 EST, [facility], 175, cm, 04/09/22 15:34:00 EDT, Height, 78.3, kg, 12/26/21 19:05:00 EDT, Dry Weight Start Date: 05/13/22 Status: Ordered Augmentin 875 mg-125 mg oral tablet 1 tablet, By Mouth, 2 times a day, for 3 days, # 6 tablet, 0 Refills, Acute 08/04/22 16:18:00 EST, 08/01/22 16:18:00 EST, [facility]/pharmacy #[id number], Partial fill upon patient request if the prescription is for a schedule II opioid drug., 176, cm, 08/01/22 15... Start Date: 08/01/22 Stop Date: 08/04/22 Status: Ordered Compression Stockings See Instructions, # 4 each, Refills 2, Tot. Refills 2, Maintenance, surgical, calf length 20-30 mm Hg M79.89 M79.606, 01/06/22 10:58:00 EDT, Supply Start Date: 01/06/22 Status: Ordered fluticasone 50 mcg/inh nasal spray See Instructions, USE 1 SPRAY(S) INTO EACH NOSTRIL TWICE A DAY, # 16 Gm, 5 Refills, Maintenance, 02/18/22 10:02:00 EDT, [facility], 30, USE 1 SPRAY(S) INTO EACH NOSTRIL TWICE A DAY, 175, cm, 01/06/22 10:34:00 EDT, Height, 78.3, kg, 12/26/21 19... Start Date: 02/18/22 Status: Ordered folic acid 1 mg oral tablet 1 mg, 1, tablet, By Mouth, Daily, # 90 tablet, Refills 4, Tot. Refills 4, Maintenance, 10/27/21 10:40:00 EDT, Route to Pharmacy Electronically, [facility], Partial fill upon patient request if the prescription is for a schedule II opioid drug.... Start Date: 10/27/21 Stop Date: 01/20/23 Status: Ordered furosemide 20 mg oral tablet 1, tablet, By Mouth, Daily, R1., # 30 tablet, Refills 5, Tot. Refills 5, Maintenance, 07/18/22 7:52:00 EST, Route to Pharmacy Electronically, [facility], 179, cm, 07/01/22 13:29:00 EST, Height, [...] tablet, 11 Refills, Maintenance, 03/13/22 8:38:00 EDT, [facility], 175, cm, 01/06/22 10:34:00 EDT, Height, 78.3, kg, 12/26/21 19:05:00 EDT, Dry Weight Start Date: 03/13/22 Status: Ordered lactulose 10 gm/15 ml oral syrup See Instructions, TAKE 30ML BY MOUTH THREE TIMES DAILY NEEDED TO ACHEIVE 3-4 BOWL MOVEMENTS PER DAY, # 3,000 mL, 10 Refills, [facility], 30, TAKE 30ML BY MOUTH THREE TIMES DAILY NEEDED TO ACHEIVE 3-4 BOWL MOVEMENTS PER DAY, 174, cm, 02/12... Start Date: 07/02/21 Status: Ordered Lidoderm 5% film 1 patch, Topically, Daily, remove patches after 12 hours NSAIDS contraindicated High dose tylenol contraindicated, # 30 patch, 5 Refills, Maintenance, 12/26/21 9:33:00 EDT, [facility], Partial fill upon patient request if the prescription i... Start Date: 12/26/21 Status: Ordered magnesium oxide 400 mg oral tablet 1 tablet, By Mouth, 2 times a day, # 60 tablet, 11 Refills, Maintenance, 03/13/22 8:37:00 EDT, [facility], 175, cm, 01/06/22 10:34:00 EDT, Height, 78.3, kg, 12/26/21 19:05:00 EDT, Dry Weight Start Date: 03/13/22 Status: Ordered Melatonin 3 mg oral tablet 1 tablet, By Mouth, Daily at bedtime, PRN NEEDED FOR INSOMNIA (PACKAGE IN TRAY)^1R4, # 60 tablet, 5 Refills, Maintenance, 06/12/22 18:11:00 EST, [facility], 60, TAKE 1 TABLET BY [...] 16:00:00 EDT, Route to Pharmacy Electronically, [facility], Partial fill upon patient requestif the prescription is for a schedule II opioid remedios... Start Date: 04/09/22 Stop Date: 10/06/22 Status: Ordered Potassium Chloride (Eqv-K-Tab) 20 mEq oral tablet, extended release 2 tablet, By Mouth, Daily, # 180 tablet, 1 Refills, Maintenance, 05/13/22 9:48:00 EST, [facility], 175, cm, 04/09/22 15:34:00 EDT, Height, 78.3, kg, 12/26/21 19:05:00 EDT, Dry Weight Start Date: 05/13/22 Stop Date: 11/09/22 Status: Ordered pyridoxine 50 mg oral tablet 50 mg, 1, tablet, By Mouth, Daily, for 90 days, # 90 tablet, Refills 4, Tot. Refills 4, Acute 01/15/23 11:42:00 EDT, 10/22/21 11:42:00 EDT, Route to Pharmacy Electronically, [facility], Partial fill upon patient request if [...] 90 tablet, 9 Refills, [facility], 28, TAKE 1 TABLET BY MOUTH ONCE A DAY, 174, cm, 07/14/21 8:16:00 EST, Height, 81, kg, 02/27/21 14:06:00 EDT, Dry Weight Start Date: 07/22/21 Status: Ordered tranexamic acid 650 mg oral tablet 1 tablet = 650 mg, By Mouth, Daily, # 19 tablet, 0 Refills, Maintenance, 08/01/22 16:17:00 EST, Tablet, [facility]/pharmacy #[id number], Partial fill upon patient request if the prescription is for a schedule II opioid drug., 176, cm, 08/01/22 15:52:00 EST, Height... Start Date: 08/01/22 Stop Date: 08/20/22 Status: Ordered traZODone 50 mg oral tablet 2 TO 3 TABLETS, By Mouth, Daily at bedtime, #28 VIAL)^2R4., # 90 tablet, Refills 5, Maintenance, 06/12/22 18:11:00 EST, Route to Pharmacy Electronically, [facility], 179, cm, 06/08/22 7:37:00EST, Height, 84, kg, 06/01/22 12:27:00 EST, Dry Weight Start Date: 06/12/22 Status: Ordered Vitamin B1 100 mg oral tablet 1, tablet, By Mouth, Daily, # 90 tablet, Refills 3, Maintenance, 03/13/22 8:37:00 EDT, Route to Pharmacy Electronically, [facility], 175, cm, 01/06/22 10:34:00 EDT, Height, 78.3, kg, 12/26/2218:05:00 EDT, Dry Weight Start Date: 03/13/22 Status: Ordered Xifaxan 550 mg oral tablet 1 tablet, By Mouth, 2 times a day, ^1R1,1R4., # 60 tablet, 1 Refills, Maintenance, 06/12/22 18:10:00 EST, [facility], 179, cm, 06/08/22 7:37:00 EST, Height, [...] Name: Garima Manzano RN Position: [facility] RN Member Role: Primary Care Nurse Name: Malgorzata Marinelli RN Position: [facility] RN Member Role: Primary Care Nurse Name: Joyce Roach RN Position: [facility] RN Member Role: Primary Care Nurse Name: Mary Suazo RN Position: [facility] RN Member Role: Primary Care Nurse Name: Danyel Davis RN Position: [facility] RN Member Role: Primary Care Nurse Name: Andres Pressley RN Position: [facility] RN Member Role: Primary Care Nurse Name: Jany Baig DO Position: [facility] Primary Care Physician Member Role: PCP Address: Address: [address] [place] [address] Adult [facility] [place] [address]- Name: Neida Ballard RN Position: [facility] RN Member [...] Role: Lifetime Consulting Provider Address: Address: [address] [place] [address] Name: Ge Covarrubias RN Position: [facility] RN Member Role: Primary Care Nurse Name: Orin Elmore RN Position: [facility] ED RN W/OE and Tasks Member Role: Primary Care Nurse Name: Allegra Liu RN Position: [facility] PCO RN Member Role: Primary Care Nurse Name: Shayan Pandya MD Position: [facility] Renal MD Member Role: Lifetime Consulting Physician Address: Address: [address] [place] [address] [facility] [address] Name: Darlene Rodrigez RN Position: [facility] RN Member Role: Primary Care Nurse Name: Kwan Mills RN Position: [facility] RN Member Role: Primary Care Nurse Name: Dolores Can RN Position: [facility] RN Member Role: Primary Care Nurse Name: Kim Rendon RN Position: [facility] RN Member Role: Primary Care Nurse Name: Monica Rowell RN Position: [facility] RN Member Role: Primary Care Nurse Care Team Related Persons Name: MARLEN CABEZAS Address: [address] Name: DUCBRIANWUMARLEN Address: home [address] [place] [address] Name: NICK CABEZAS Name: GEMA CABEZAS Address: [address]
--- OUTSIDE RECORDS SUMMARY | 2023-12-15 20:58 | XMS_ITS | Continuity of Care Document ---
Author Organization [facility] Address [address] [place] [address]- Care Team Providers Care Cargoman Name Role Phone Jany Baig DO Primary Care Physician ( [phone] Encounter [facility] Date(s): 07/03/22 - 08/02/22 [facility] [address] [place] [address]- [place] Allergies, Adverse Reactions, Alerts Substance Reaction [...] n 1Result Comment: [facility]: [id number] 2Result Comment: [04/29/2017] [id number] 3Admin Note: FLUARIX 4Admin Note: 3 RDINJ 5Admin Note: #2 Medications acetaminophen 500 mg oral tablet 1 tablet, By Mouth, 4 times a day, PRN NEEDED FOR PAIN, MAX 4, PER DAY (VIAL., # 50 tablet, 11 Refills, Maintenance, 03/13/22 8:37:00 EDT, [facility], 175, cm, 01/06/22 10:34:00 EDT, Height, 78.3, kg, 12/26/21 19:05:00 EDT, Dry Weight Start Date: 03/13/22 Status: Ordered amLODIPine 5 mg oral tablet See Instructions, TAKE 1 TABLET BY MOUTH ONCE A DAY^1R1, # 30 tablet, 5 Refills, Maintenance, 05/13/22 16:24:00 EST, [facility], 175, cm, 04/09/22 15:34:00 EDT, Height, 78.3, kg, 12/26/21 19:05:00 EDT, Dry Weight Start Date: 05/13/22 Status: Ordered Augmentin 875 mg-125 mg oral tablet 1 tablet, By Mouth, 2 times a day, for 3 days, # 6 tablet, 0 Refills, Acute 08/04/22 16:18:00 EST, 08/01/22 16:18:00 EST, [facility]/pharmacy #[id number], Partial fill upon patient request if the [...] Gm, 5 Refills, Maintenance, 02/18/22 10:02:00 EDT, [facility], 30, USE 1 SPRAY(S) INTO EACH NOSTRIL TWICE A DAY, 175, cm, 01/06/22 10:34:00 EDT, Height, 78.3, kg, 12/26/21 19... Start Date: 02/18/22 Status: Ordered folic acid 1 mg oral tablet 1 mg, 1, tablet, By Mouth, Daily, # 90 tablet, Refills 4, Tot. Refills 4, Maintenance, 10/27/21 10:40:00 EDT, Route to Pharmacy Electronically, [facility], Partial fill upon patient request if the prescription is for a schedule II opioid drug.... Start Date: 10/27/21 Stop Date: 01/20/23 Status: Ordered furosemide 20 mg oral tablet 1, tablet, By Mouth, Daily, R1., # 30 tablet, Refills 5, Tot. Refills 5, Maintenance, 07/18/22 7:52:00 EST, Route to Pharmacy Electronically, [facility], 179, cm, 07/01/22 13:29:00 EST, Height, [...] tablet, 11 Refills, Maintenance, 03/13/22 8:38:00 EDT, [facility], 175, cm, 01/06/22 10:34:00 EDT, Height, 78.3, kg, 12/26/21 19:05:00 EDT, Dry Weight Start Date: 03/13/22 Status: Ordered lactulose 10 gm/15 ml oral syrup See Instructions, TAKE 30ML BY MOUTH THREE TIMES DAILY NEEDED TO ACHEIVE 3-4 BOWL MOVEMENTS PER DAY, # 3,000 mL, 10 Refills, [facility], 30, TAKE 30ML BY MOUTH THREE TIMES DAILY NEEDED TO ACHEIVE 3-4 BOWL MOVEMENTS PER DAY, 174, cm, 02/12... Start Date: 07/02/21 Status: Ordered Lidoderm 5% film 1 patch, Topically, Daily, remove patches after 12 hours NSAIDS contraindicated High dose tylenol contraindicated, # 30 patch, 5 Refills, Maintenance, 12/26/21 9:33:00 EDT, [facility], Partial fill upon patient request if the prescription i... Start Date: 12/26/21 Status: Ordered magnesium oxide 400 mg oral tablet 1 tablet, By Mouth, 2 times a day, # 60 tablet, 11 Refills, Maintenance, 03/13/22 8:37:00 EDT, [facility], 175, cm, 01/06/22 10:34:00 EDT, Height, 78.3, kg, 12/26/21 19:05:00 EDT, Dry Weight Start Date: 03/13/22 Status: Ordered Melatonin 3 mg oral tablet 1 tablet, By Mouth, Daily at bedtime, PRN NEEDED FOR INSOMNIA (PACKAGE IN TRAY)^1R4, # 60 tablet, 5 Refills, Maintenance, 06/12/22 18:11:00 EST, [facility], 60, TAKE 1 TABLET BY MOUTH [...] 04/09/22 16:00:00 EDT, Route to Pharmacy Electronically, [facility], Partial fill upon patient requestif the prescription is for a schedule II opioid remedios... Start Date: 04/09/22 Stop Date: 10/06/22 Status: Ordered Potassium Chloride (Eqv-K-Tab) 20 mEq oral tablet, extended release 2 tablet, By Mouth, Daily, # 180 tablet, 1 Refills, Maintenance, 05/13/22 9:48:00 EST, [facility], 175, cm, 04/09/22 15:34:00 EDT, Height, 78.3, kg, 12/26/21 19:05:00 EDT, Dry Weight Start Date: 05/13/22 Stop Date: 11/09/22 Status: Ordered pyridoxine 50 mg oral tablet 50 mg, 1, tablet, By Mouth, Daily, for 90 days, # 90 tablet, Refills 4, Tot. Refills 4, Acute 01/15/23 11:42:00 EDT, 10/22/21 11:42:00 EDT, Route to Pharmacy Electronically, [facility], Partial fill upon patient request if [...] Mouth, Daily, # 90 tablet, 9 Refills, [facility], 28, TAKE 1 [...] 06/12/22 18:11:00 EST, Route to Pharmacy Electronically, [facility], 179, cm, 06/08/22 7:37:00EST, Height, 84, kg, 06/01/22 12:27:00 EST, Dry Weight Start Date: 06/12/22 Status: Ordered Vitamin B1 100 mg oral tablet 1, tablet, By Mouth, Daily, # 90 tablet, Refills 3, Maintenance, 03/13/22 8:37:00 EDT, Route to Pharmacy Electronically, [facility], 175, cm, 01/06/22 10:34:00 EDT, Height, 78.3, kg, 12/26/2218:05:00 EDT, Dry Weight Start Date: 03/13/22 Status: Ordered Xifaxan 550 mg oral tablet 1 tablet, By Mouth, 2 times a day, ^1R1,1R4., # 60 tablet, 1 Refills, Maintenance, 06/12/22 18:10:00 EST, [facility], 179, cm, 06/08/22 7:37:00 EST, [...] Care Nurse Name: Danyel Davis RN Position: [facility] RN Member Role: Primary Care Nurse Name: Andres Pressley RN Position: [facility] RN Member Role: Primary Care Nurse Name: Jany Baig DO Position: [facility] Primary Care Physician Member Role: PCP Address: Address: [address] [place] [address] Adult [facility] [place] [address]- Name: Neida Ballard RN Position: [facility] RN Member Role: Primary Care Nurse Name: Kaye Payne RN Position: [facility] RN Member Role: Primary Care Nurse Name: Malloryjason ONOFRE Garima Position: [facility] [...] Member Role: Lifetime Consulting Provider Address: Address: [address] [place] [address] Name: Ge Covarrubias RN Position: [facility] RN Member Role: Primary Care Nurse Name: Orin Elmore RN Position: [facility] ED RN W/OE and Tasks Member Role: Primary Care Nurse Name: Allegra Liu RN Position: [facility] PCO RN Member Role: Primary Care Nurse Name: Shayan Pandya MD Position: [facility] Renal MD Member Role: Lifetime Consulting Physician Address: Address: [address] [place] [address] [address] [facility] [place] [address]- Name: Darlene Rodrigez RN Position: [facility] RN Member Role: Primary Care Nurse Name: Kwan Mills RN Position: [facility] RN Member Role: Primary Care Nurse Name: Dolores Can RN Position: [facility] RN Member Role: Primary Care Nurse Name: Kim Rendon RN Position: [facility] RN Member Role: Primary Care Nurse Name: Monica Rowell RN Position: [facility] RN Member Role: Primary Care Nurse Care Team Related Persons Name: MARLEN CABEZAS Address: home [address] [place] [address] Name: DUCBRIANWU MARLEN Address: home [address] [place] [address] Name: RAULITO NICK Name: DUCBRIANGEMA WASHBURN Address: home [address] [place] [address]
--- OUTSIDE RECORDS SUMMARY | 2023-12-15 20:58 | XMS_ITS | Continuity of Care Document ---
Author Organization [facility] Address [address] [place] [address]- Care Team Providers Care Supervisor [employer] Name Role Phone Jany Baig DO Primary Care Physician [place] [facility] [place]23 - 07/14/23 [facility] [address] [place], [place] [address] Encounter Diagnosis Alcohol abuse(Discharge Diagnosis) - 07/07/23 Alcoholic hepatitis, cirrhosis(Discharge Diagnosis) - 07/07/23 Insomnia(Discharge Diagnosis) - 07/07/23 Sherie's Optic neuropathy(Discharge Diagnosis) - 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. Start Date: 11/05/22 Stop Date: 01/14/23 Status: Ordered amLODIPine 5 mg oral tablet 1 tablet, By Mouth, Daily, ^1R1., # 30 tablet, 2 Refills, Maintenance, 06/02/23 8:00:00 EST, [facility], [facility], cm, 03/22/23 6:50:00 EDT, Height, [...] 10:52:00 EDT, [facility], 28, APPLY TOPICALLY TO AFFECTED [...] Gm, 1 Refills, Maintenance, 07/07/23 17:36:00 EST, [facility], 30, USE 1 SPRAY(S) INTO EACH NOSTRIL TWICE A DAY, 175, cm, 07/07/23 9:46:00 EST, Height, 80.6, kg, 07/07/23 9:1... Start Date: 07/07/23 Status: Ordered folic acid 1 mg oral tablet 1, tablet, By Mouth, Daily, ^1R1., # 30 tablet, Refills 5, Maintenance, 03/20/23 16:22:00 EDT, Route to Pharmacy Electronically, [facility], 175, cm, 03/20/23 15:31:00 EDT, Height, 77.5, kg, 03/20/23 11:30:00 EDT, Dry Weight Start Date: 03/20/23 Status: Ordered furosemide 20 mg oral tablet 20 mg, 1, tablet, By Mouth, Every other day, # 30 tablet, Refills 3, Tot. Refills 3, Maintenance, 01/28/23 12:31:00 EDT, Route to Pharmacy Electronically, [facility], Partial fill upon patient request if the prescription is for a schedule II o... Start Date: 01/28/23 Status: Ordered gabapentin 300 mg oral capsule 300 mg, 1, capsule, By Mouth, Daily at bedtime, note dose/frequency change, # 90 capsule, Refills 4, Tot. Refills 4, Maintenance, 11/05/22 11:05:00 EDT, Route to Pharmacy Electronically, [facility], 175, cm, 11/05/22 10:21:00 EDT, Height, 88.9... Start Date: 11/05/22 Stop Date: 01/29/24 Status: Ordered hydrOXYzine hydrochloride 10 mg oral tablet 2 tablet, By Mouth, 2 times a day, PRN NEEDED FOR ANXIETY (VIAL), # 30 tablet, 3 Refills, Maintenance, 04/16/23 16:41:00 EDT, [facility], 175, cm, 03/22/23 6:50:00 EDT, [...] 12:31:00 EDT, [facility], 175, cm, 12/03/22 11:50:00 EDT, Height, 88.9, kg, 10/21/22 20:41:00 EDT, Dry Weight Start Date: 01/28/23 Status: Ordered Melatonin 3 mg oral tablet 1 tablet, By Mouth, Daily at bedtime, PRN NEEDED FOR INSOMNIA (PACKAGE IN TRAY)^1R4, # 60 tablet, 5 Refills, Maintenance, 04/16/23 16:41:00 EDT, [facility], 60, TAKE 1 TABLET BY [...] Electronically, [facility], 175, cm, 12/03/22 11:50:00 EDT, [...] Electronically, [facility], 175, cm, 03/22/23 6:50:00 EDT, Height, 77.5, kg, 03/20/23 11:30:00 EDT, Dry Weight Start Date: 04/14/23 Status: Ordered Tab-A-Jesse oral tablet 1 tablet, By Mouth, Daily, R1., # 30 tablet, 5 Refills, Maintenance, 05/06/23 19:16:00 EST, [facility], 30, TAKE 1 TABLET BY MOUTH ONCE A DAY^1R1, 175, cm, 03/22/23 6:50:00 EDT, Height, 77.5,kg, 03/20/23 11:30:00 EDT, Dry Weight Start Date: 05/06/23 Status: Ordered traZODone 50 mg oral tablet 2, tablet, By Mouth, Daily at bedtime, ^2R4., # 60 tablet, Refills 5, Maintenance, 02/26/23 10:11:00 EDT, Route to Pharmacy Electronically, [facility], 175, cm, 12/03/22 11:50:00 EDT, Height,84, [...] 02/09/23 23:18:00 EDT, Route to Pharmacy Electronically, [facility], 175, cm, 12/03/22 11:50:00 EDT, Height, 88.9, kg, 10/21/22 20:41:00 EDT, Dry Weight Start Date: 02/09/23 Status: Ordered Vitamin B6 50 mg oral tablet 1, tablet, By Mouth, Daily, R1., # 90 tablet, Refills 4, Maintenance, 11/16/22 13:39:00 EDT, Route to Pharmacy Electronically, [facility], 175, cm, 11/13/22 10:42:00 EDT, Height, [...] each, 1 Refills, Maintenance, 06/30/23 12:59:00 EST, [facility], 175, cm, 03/22/23 6:50:00 EDT, Height, [...] Clinical Service Informant Alcohol abuse Discharge Diagnosis 07/07/23 Alcoholic hepatitis, cirrhosis Discharge Diagnosis 07/07/23 Insomnia Discharge Diagnosis 07/07/23 Sherie's Optic neuropathy Discharge Diagnosis 07/07/23 History of substance abuse Discharge Diagnosis 07/07/23 Vital Signs Most recent to oldest [Reference Range]: 1 2 Height 175 cm (07/07/23 9:46 AM) 175 cm (07/07/23 9:18 AM) Weight 80.6 kg (07/07/23 9:18 AM) Oxygen Saturation [94-100 %] 97 % (07/07/23 9:18 AM) Pulse Rate [55-90 bpm] 80 bpm (07/07/23 9:46 AM) 99 bpm *H* (07/07/23 9:18 AM) Body Mass Index [18.5-24.99 kg/m2] 26.32 kg/m2 *H* (07/07/23 9:18 AM) Blood Pressure [90-138/55-84 mm Hg] 125/ 78mm Hg (07/07/23 9:18 AM) Mode of Delivery (Oxygen) Room air (07/07/23 9:18 AM) Blood pressure sites Arm, left (07/07/23 9:18 AM) Dry Weight 80.6 kg (07/07/23 9:18 AM) Weight Obtained Via Standing scale (07/07/23 9:18 AM) Dry Weight Obtained Via Standing scale (07/07/23 9:18 AM) Social History Social History Type Response Smoking Status 10 or more cigarette s (1/2 pack or more)/day in last 30 days entered on: 02/04/19 Sex Patient Care team information Care Team Personnel Name: Shira Galindo RN Position: [facility] RN Member Role: Primary Care Nurse Name: Alexandra Colmenares RN Position: [facility] ED RN W/OE and Tasks Member Role: Primary Care Nurse Name: Garima Manzano RN Position: [facility] RN Member Role: Primary Care Nurse Name: Malgorzata Marinelli RN Position: [facility] RN Member Role: Primary Care Nurse Name: Joyce Roach RN Position: [facility] ED RN W/OE and Tasks Member Role: Primary Care Nurse Name: Mary Suazo RN Position: [facility] RN Member Role: Primary Care Nurse Name: Maria Esther Craig LPN Position: [facility] RN Member Role: Primary Care Nurse Name: Andres Pressley RN Position: [facility] ED RN W/OE and Tasks Member Role: Primary Care Nurse Name: Jany Baig DO Position: [facility] Physician - Primary Care Member Role: PCP Address: Address: [address] [place] [address] Adult & Pediatric Medicine [place], [place] [address] Name: Kaye Payne RN Position: S RN Member Role: Primary Care Nurse Name: Garima Hutchinson Position: S RN Member Role: Primary Care Nurse Name: Malgorzata Austin Position: S RN Member Role: Primary Care Nurse Name: Ibeth Adams RN Position: S RN Member Role: Primary Care Nurse Name: Torrie Hernandez RN Position: [facility] OB RN Member Role: Primary Care Nurse Name: Gretchen Knutson RN Position: [facility] SN RN Member Role: Primary Care Nurse Name: Aislinn Mkcee RN Position: S RN Member Role: Primary Care Nurse Name: Ashley Mcelroy Position: [facility] RN Member Role: Primary Care Nurse Name: Ashok Kevin RN Position: [facility] RN Member Role: Primary Care Nurse Name: Cody Garcia Position: [facility] Associate Professional Member Role: Lifetime Consulting Provider Address: Address: [address] [place] [address]- Name: Paige Nascimento RN Position: [facility] RN Member Role: Primary Care Nurse Name: Ge Covarrubias RN Position: [facility] RN Member Role: Primary Care Nurse Name: Orin Elmore RN Position: [facility] ED RN W/OE and Tasks Member Role: Primary Care Nurse Name: Allegra Liu RN Position: [facility] SN RN Member Role: Primary Care Nurse Name: Shayan Pandya MD Position: [facility] Renal MD Member Role: Lifetime Consulting Physician Address: Address: [address] [place] [address] [address] [facility], [place] [address]- Name: Kimberley Pittman RN Position: [facility] RN Member Role: Primary Care Nurse Name: Darlene Rodrigez RN Position: [facility] RN Member Role: Primary Care Nurse Name: Ingrid Verdugo RN Position: [facility] RN Member Role: Primary Care Nurse Name: Monica Rowell RN Position: [facility] RN Member Role: Primary Care Nurse Name: Jimi Fitzpatrick RN Position: [facility] RN Member Role: Primary Care Nurse Care Team Related Persons Name: MARLEN CABEZAS Address: [address] [place] [address] Name: MARLEN CABEZAS Address: [address] [place] [address] Name: RAULITO NICK Name: CAWUMOSESGEMA Address: [address] [place] [address]
--- OUTSIDE RECORDS SUMMARY | 2023-12-15 20:58 | XMS_ITS | Continuity of Care Document ---
Author Organization [facility] Address [address] [place] [address]- Care Team Providers Care Steam Fitter Supervisor Maintenance Name Role Phone Jany Baig DO Primary Care Physician ( [phone] Encounter [facility] [place] [place] Date(s): 03/22/23 - 05/22/23 [facility] [address] [place] [address]- Attending Physician: Terry Washington MD Admitting Physician: Terry Washington MD Allergies, Adverse Reactions, Alerts Substance Reaction [...] Give n 1Result Comment: [facility]: [id number] 2Result Comment: [04/29/2017] [id number] 3Admin Note: FLUARIX 4Admin Note: 3 RDINJ 5Admin Note: #2 Medications acamprosate 333 mg oral delayed release tablet 1 tablet = 333 mg, By Mouth, 3 times a day, # 42 tablet, 4 Refills, Maintenance, 11/05/22 11:31:00 EDT, EC Table[facility], Partial fill upon patient request if the prescription is for a schedule II opioid drug., 175, cm, 11/05/22 10:21:00... Start Date: 11/05/22 Stop Date: 01/14/23 Status: Ordered amLODIPine 5 mg oral tablet 1 tablet, By Mouth, Daily, ^1R1., # 30 tablet, 5 Refills, Maintenance, 12/22/22 7:20:00 EDT, [facility], 175, cm, 12/03/22 11:50:00 EDT, Height, 88.9, kg, 10/21/22 20:41:00 EDT, Dry Weight Start Date: 12/22/22 Status: Ordered baclofen 10 mg oral tablet See Instructions, TAKE ONE TABLET BY MOUTH THREE TIMES A DAY ^1R1,1R2,1R4, # 90 tablet, Refills 5, Tot. Refills 5, Maintenance, 01/14/23 17:55:00 EDT, Instructions Replace Required Details, Route to Pharmacy Electronically, [facility], 175, cm... Start Date: 01/14/23 Status: Ordered calcium (as carbonate)-vitamin D 500 mg-400 intl units oral tablet 1 tablet, By Mouth, Daily, ^1R1., # 28 tablet, 0 Refills, Maintenance, 12/01/22 16:12:00 EDT, [facility], 28, 1 tablet By Mouth [...] capsule, 6 Refills, Maintenance, 12/03/22 12:13:00 EDT, [facility], [facility], cm, 12/03/22 11:50:00 EDT, Height, [...] Gm, 12 Refills, Maintenance, 03/24/23 10:52:00 EDT, [facility], 28, APPLY TOPICALLY TO AFFECTED [...] 11 Refills, Maintenance, 08/07/22 12:12:00 EST, [facility]/pharmacy #[id number], 30, USE 1 SPRAY(S) INTO EACH NOSTRIL TWICE A DAY, 176, cm,08/07/22 11:37:00 EST, Height, 79.8, kg, 07/31/22 2... Start Date: 08/07/22 Status: Ordered folic acid 1 mg oral tablet 1, tablet, By Mouth, Daily, ^1R1., # 30 tablet, Refills 5, Maintenance, 03/20/23 16:22:00 EDT, Route to Pharmacy Electronically, [facility], 175, cm, 03/20/23 15:31:00 EDT, Height, 77.5, kg, 03/20/23 11:30:00 EDT, Dry Weight Start Date: 03/20/23 Status: Ordered furosemide 20 mg oral tablet 20 mg, 1, tablet, By Mouth, Every other day, # 30 tablet, Refills 3, Tot. Refills 3, Maintenance, 01/28/23 12:31:00 EDT, Route to Pharmacy Electronically, [facility], Partial fill upon patient request if the prescription is for a schedule II o... Start Date: 01/28/23 Status: Ordered gabapentin 300 mg oral capsule 300 mg, 1, capsule, By Mouth, Daily at bedtime, note dose/frequency change, # 90 capsule, Refills 4, Tot. Refills 4, Maintenance, 11/05/22 11:05:00 EDT, Route to Pharmacy Electronically, [facility], 175, cm, 11/05/22 10:21:00 EDT, Height, 88.9... Start Date: 11/05/22 Stop Date: 01/29/24 Status: Ordered hydrOXYzine hydrochloride 10 mg oral tablet 2 tablet, By Mouth, 2 times a day, PRN NEEDED FOR ANXIETY (VIAL), # 30 tablet, 3 Refills, Maintenance, 04/16/23 16:41:00 EDT, [facility], 175, cm, 03/22/23 6:50:00 EDT, Height, 77.5, kg, 03/20/23 11:30:00 EDT, Dry Weight Start Date: 04/16/23 Status: Ordered lactulose 10 gm/15 ml oral syrup 15 mL, By Mouth, 2 times a day, # 120 mL, 6 Refills, Maintenance, 02/26/23 10:11:00 EDT, [facility], 4, TAKE 15ML BY MOUTH TWO TIMES A DAY, 175, cm, 12/03/22 11:50:00 EDT, Height, 84, kg, 02/12/23 11:30:00 EDT, Dry Weight Start Date: 02/26/23 Status: Ordered magnesium oxide 400 mg oral tablet See Instructions, TAKE 1 TABLET BY MOUTH TWICE A DAY^1R1,1R4, # 60 tablet, 11 Refills, Maintenance,01/28/23 12:31:00 EDT, [facility], 175, cm, 12/03/22 11:50:00 EDT, Height, 88.9, kg, 10/21/22 20:41:00 EDT, Dry Weight Start Date: 01/28/23 Status: Ordered Melatonin 3 mg oral tablet 1 tablet, By Mouth, Daily at bedtime, PRN NEEDED FOR INSOMNIA (PACKAGE IN TRAY)^1R4, # 60 tablet, 5 Refills, Maintenance, 04/16/23 16:41:00 EDT, [facility], 60, TAKE 1 TABLET BY [...] 02/26/23 10:11:00 EDT, Route to Pharmacy Electronically, [facility], 175, cm, 12/03/22 11:50:00 EDT, Height, [...] 04/14/23 12:41:00 EDT, Route to Pharmacy Electronically, [facility], 175, cm, 03/22/23 6:50:00 EDT, Height, 77.5, kg, 03/20/23 11:30:00 EDT, Dry Weight Start Date: 04/14/23 Status: Ordered Tab-A-Jesse oral tablet 1 tablet, By Mouth, Daily, R1., # 30 tablet, 5 Refills, Maintenance, 05/06/23 19:16:00 EST, [facility], 30, TAKE 1 TABLET BY MOUTH ONCE A DAY^1R1, 175, cm, 03/22/23 6:50:00 EDT, Height, 77.5,kg, 03/20/23 11:30:00 EDT, Dry Weight Start Date: 05/06/23 Status: Ordered traZODone 50 mg oral tablet 2, tablet, By Mouth, Daily at bedtime, ^2R4., # 60 tablet, Refills 5, Maintenance, 02/26/23 10:11:00 EDT, Route to Pharmacy Electronically, [facility], 175, cm, 12/03/22 11:50:00 EDT, Height,84, [...] 02/09/23 23:18:00 EDT, Route to Pharmacy Electronically, [facility], 175, cm, 12/03/22 11:50:00 EDT, Height, 88.9, kg, 10/21/22 20:41:00 EDT, Dry Weight Start Date: 02/09/23 Status: Ordered Vitamin B6 50 mg oral tablet 1, tablet, By Mouth, Daily, R1., # 90 tablet, Refills 4, Maintenance, 11/16/22 13:39:00 EDT, Route to Pharmacy Electronically, [facility], 175, cm, 11/13/22 10:42:00 EDT, Height, [...] tablet, 3 Refills, Maintenance, 02/26/23 10:11:00 EDT, [facility], 175, cm, 12/03/22 11:50:00 EDT, Height, [...] Team Personnel Name: Alexandra Colmenares RN Position: S ED RN W/OE and Tasks [...] Care Member Role: PCP Address: Address: [address] [place] [address] Adult & [place] [address]- Name: Kaye Payne RN Position: [facility] [...] Role: Lifetime Consulting Provider Address: Address: [address] [place] [id number]- Name: Paige Nascimento RN Position: [facility] [...] Consulting Physician Address: Address: [address] [facility] [facility] [address] [facility] [place] [address]- Name: Darlene Rodrigez RN Position: S RN [...] Persons Name: MARLEN CABEZAS Address: [address] [place] [address] Name: MARLEN CABEZAS Address: [address] [place] [address] Name: NICK CABEZAS Name: GEMA CABEZAS Address: home [address] [place] [address]
--- OUTSIDE RECORDS SUMMARY | 2023-12-15 20:58 | XMS_ITS | Continuity of Care Document ---
Author Organization 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 [address] [place] [address]- Attending Physician: Venice Salmon Admitting Physician: Venice [...] 08/02/12 Give n 1Result Comment: [facility]: [id number] 2Result Comment: [04/29/2017] [id number] 3Admin Note: FLUARIX 4Admin Note: 3 RDINJ 5Admin Note: #2 Medications acamprosate 333 mg oral delayed release tablet 1 tablet = 333 mg, By Mouth, 3 times a day, # 42 tablet, 4 Refills, Maintenance, 11/05/22 11:31:00 EDT, EC Tablet, [facility], Partial fill upon patient request if the prescription is for a schedule II opioid drug., 175, cm, 11/05/22 10:21:00... Start Date: 11/05/22 Stop Date: 01/14/23 Status: Ordered amLODIPine 5 mg oral tablet 1 tablet, By Mouth, Daily, ^1R1., # 30 tablet, 5 Refills, Maintenance, 12/22/22 7:20:00 EDT, [facility], 175, cm, 12/03/22 11:50:00 EDT, Height, 88.9, kg, 10/21/22 20:41:00 EDT, Dry Weight Start Date: 12/22/22 Status: Ordered baclofen 10 mg oral tablet See Instructions, TAKE ONE TABLET BY MOUTH THREE TIMES A DAY ^1R1,1R2,1R4, # 90 tablet, Refills 5, Tot. Refills 5, Maintenance, 01/14/23 17:55:00 EDT, Instructions Replace Required Details, Route to Pharmacy Electronically, [facility], 175, cm... Start Date: 01/14/23 Status: Ordered calcium (as carbonate)-vitamin D 500 mg-400 intl units oral tablet 1 tablet, By Mouth, Daily, ^1R1., # 28 tablet, 0 Refills, Maintenance, 12/01/22 16:12:00 EDT, [facility], 28, 1 tablet By Mouth [...] capsule, 6 Refills, Maintenance, 12/03/22 12:13:00 EDT, [facility], 175, cm, 12/03/22 11:50:00 EDT, Height, [...] Gm, 0 Refills, Maintenance, 02/26/23 10:12:00 EDT, [facility], 28, APPLY TOPICALLY TO AFFECTED AREA(S) [...] 11 Refills, Maintenance, 08/07/22 12:12:00 EST, [id number], 30, USE 1 SPRAY(S) INTO EACH NOSTRIL TWICE A DAY, 176, cm,08/07/22 11:37:00 EST, Height, 79.8, kg, 07/31/22 2... Start Date: 08/07/22 Status: Ordered folic acid 1 mg oral tablet 1, tablet, By Mouth, Daily, R1., # 30 tablet, Refills 5, Tot. Refills 5, Maintenance, 10/06/22 4:59:00 EDT, Route to Pharmacy Electronically, [facility], 176, cm, 09/07/22 8:56:00 EDT, Height, 82.1, kg, 09/07/22 8:59:00 EDT, Dry Weight Start Date: 10/06/22 Status: Ordered furosemide 20 mg oral tablet 1, tablet, By Mouth, Daily, R1., # 30 tablet, Refills 5, Tot. Refills 5, Maintenance, 09/03/22 14:50:00 EDT, Route to Pharmacy Electronically, [facility], 169, cm, 09/03/22 14:21:00 EDT, Height, 69, kg, 08/16/22 1:04:00 EST, Dry Weight Start Date: 09/03/22 Status: Ordered furosemide 20 mg oral tablet 20 mg, 1, tablet, By Mouth, Every other day, # 30 tablet, Refills 3, Tot. Refills 3, Maintenance, 01/28/23 12:31:00 EDT, Route to Pharmacy Electronically, [facility], Partial fill upon patient request if the prescription is for a schedule II o... Start Date: 01/28/23 Status: Ordered gabapentin 300 mg oral capsule 300 mg, 1, capsule, By Mouth, Daily at bedtime, note dose/frequency change, # 90 capsule, Refills 4, Tot. Refills 4, Maintenance, 11/05/22 11:05:00 EDT, [facility], 175, cm, 11/05/22 10:21:00 EDT, Height, 88.9... Start Date: 11/05/22 Stop Date: 01/29/24 Status: Ordered hydrOXYzine hydrochloride 10 mg oral tablet 2 tablet, By Mouth, 2 times a day, PRN NEEDED FOR ANXIETY (VIAL), # 30 tablet, 3 Refills, Maintenance, 12/22/22 16:57:00 EDT, [facility], 175, cm, 12/03/22 11:50:00 EDT, Height, [...] 5 Refills, Maintenance, 11/05/22 11:04:00 EDT, [facility], Partial klaudia... Start Date: 11/05/22 Status: Ordered magnesium oxide 400 mg oral tablet See Instructions, TAKE 1 TABLET BY MOUTH TWICE A DAY^1R1,1R4, # 60 tablet, 11 Refills, Maintenance,01/28/23 12:31:00 EDT, [facility], 175, cm, 12/03/22 11:50:00 EDT, Height, 88.9, kg, 10/21/22 20:41:00 EDT, Dry Weight Start Date: 01/28/23 Status: Ordered Melatonin 3 mg oral tablet 1 tablet, By Mouth, Daily at bedtime, PRN NEEDED FOR INSOMNIA (PACKAGE IN TRAY)^1R4, # 60 tablet, 5 Refills, Maintenance, 06/12/22 18:11:00 EST, [facility], 60, TAKE 1 TABLET [...] 02/26/23 10:11:00 EDT, Route to Pharmacy Electronically, [facility], 175, cm, 12/03/22 11:50:00 EDT, Height, [...] 11/05/22 11:31:00 EDT, Route to Pharmacy Electronically, [facility], Partial fill upon patient request if the prescription is for a schedule II opioid drug... Start Date: 11/05/22 Status: Ordered Tab-A-Jesse oral tablet 1 tablet, By Mouth, Daily, # 90 tablet, 1 Refills, 12/01/22 12:59:00 EDT, [facility], 28, 1tablet By Mouth Daily, 175, cm, 11/13/22 10:42:00 EDT, Height, 88.9, kg, 10/21/22 20:41:00 EDT, DryWeight Start Date: 12/01/22 Status: Ordered traZODone 50 mg oral tablet 2, tablet, By Mouth, Daily at bedtime, ^2R4., # 60 tablet, Refills 5, Maintenance, 02/26/23 10:11:00 EDT, Route to Pharmacy Electronically, [facility], 175, cm, 12/03/22 11:50:00 EDT, Height,84, [...] 02/09/23 23:18:00 EDT, Route to Pharmacy Electronically, [facility], 175, cm, 12/03/22 11:50:00 EDT, Height, 88.9, kg, 10/21/22 20:41:00 EDT, Dry Weight Start Date: 02/09/23 Status: Ordered Vitamin B6 50 mg oral tablet 1, tablet, By Mouth, Daily, R1., # 90 tablet, Refills 4, Maintenance, 11/16/22 13:39:00 EDT, Route to Pharmacy Electronically, [facility], 175, cm, 11/13/22 10:42:00 EDT, Height, [...] tablet, 3 Refills, Maintenance, 02/26/23 10:11:00 EDT, [facility], 175, cm, 12/03/22 11:50:00 EDT, Height, [...] note * Event Display: Inpatient Consult Note, Non-BH Authored Date: Laboratory * Event Display: Non Lab Results Authored Date: * Event Display: Non BH Lab Results Authored Date: * Event Display: Non BH Lab Results Authored Date: Patient Care team information Care [...] Jany Baig DO Position: [facility] Physician - Primary Care Member Role: PCP Address: Address: [address] [place] [address] Adult & [place] [address]- Name: Neida Ballard RN Position: [facility] RN Member Role: Primary Care Nurse Name: Kaye Payne RN Position: [facility] RN Member Role: Primary Care Nurse Name: Garima Hutchinson Position: [facility] RN Member Role: Primary Care Nurse Name: Malgorzata Austin Position: [facility] RN Member Role: Primary Care Nurse Name: Ibeth Adams RN Position: [facility] RN Member [...] Member Role: Lifetime Consulting Provider Address: Address: [address] [place] [address]- Name: Ge Covarrubias RN Position: [facility] RN Member Role: Primary Care Nurse Name: Orin Elmore RN Position: [facility] ED RN W/OE and Tasks Member Role: Primary Care Nurse Name: Allegra Liu RN Position: [facility] AMB Nurse Member Role: Primary Care Nurse Name: Shayan Pandya MD Position: [facility] Renal MD Member Role: Lifetime Consulting Physician Address: Address: [address] [facility] [place] [address]- Name: Darlene Rodrigez RN Position: [facility] RN Member Role: Primary Care Nurse Name: Kwan Mills RN Position: [facility] RN Member Role: Primary Care Nurse Name: Dloores Can RN Position: [facility] RN Member Role: Primary Care Nurse Name: Monica Rowell RN Position: [facility] RN Member Role: Primary Care Nurse Name: Jimi Fitzpatrick RN Position: [facility] RN Member Role: Primary Care Nurse Care Team Related Persons Name: MARLEN CABEZAS Address: home [address] [place] [address] Name: MARLEN CABEZAS Address: home [address] [place] [address] Name: NICK CABEZAS Name: GEMA CABEZAS Address: home [address] [place] [address]
--- OUTSIDE RECORDS SUMMARY | 2023-12-15 20:58 | XMS_ITS | Continuity of Care Document ---
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 Role Phone Jany Baig DO Primary Care Physician Encounter [facility] [place] Date(s): 01/13/23 - 02/28/23 [facility] [address] [place] [address]- Attending Physician: Maryann LEE, Jennifer Jorgensen Allergies, Adverse Reactions, Alerts Substance Reaction [...] n 1Result Comment: [facility]: [id number] 2Result Comment: [04/29/2017] [id number] 3Admin Note: FLUARIX 4Admin Note: 3 RDINJ 5Admin Note: #2 Medications acamprosate 333 mg oral delayed release tablet 1 tablet = 333 mg, By Mouth, 3 times a day, # 42 tablet, 4 Refills, Maintenance, 11/05/22 11:31:00 EDT, EC Tablet, [facility], Partial fill upon patient request if the prescription is for a schedule II opioid drug., 175, cm, 11/05/22 10:21:00... Start Date: 11/05/22 Stop Date: 01/14/23 Status: Ordered amLODIPine 5 mg oral tablet 1 tablet, By Mouth, Daily, ^1R1., # 30 tablet, 5 Refills, Maintenance, 12/22/22 7:20:00 EDT, [facility], 175, cm, 12/03/22 11:50:00 EDT, Height, 88.9, kg, 10/21/22 20:41:00 EDT, Dry Weight Start Date: 12/22/22 Status: Ordered baclofen 10 mg oral tablet See Instructions, TAKE ONE TABLET BY MOUTH THREE TIMES A DAY ^1R1,1R2,1R4, # 90 tablet, Refills 5, Tot. Refills 5, Maintenance, 01/14/23 17:55:00 EDT, Instructions Replace Required Details, [facility], [facility], 175, cm... Start Date: 01/14/23 Status: Ordered calcium (as carbonate)-vitamin D 500 mg-400 intl units oral tablet 1 tablet, By Mouth, Daily, ^1R1., # 28 tablet, 0 Refills, Maintenance, 12/01/22 16:12:00 EDT, [facility], 28, 1 tablet By Mouth Daily,Instr:^1R1., 175, [...] capsule, 6 Refills, Maintenance, 12/03/22 12:13:00 EDT, [facility], 175, cm, 12/03/22 11:50:00 EDT, Height, [...] Gm, 0 Refills, Maintenance, 02/26/23 10:12:00 EDT, [facility], 28, APPLY TOPICALLY TO AFFECTED AREA(S) [...] to Pharmacy Electronically, [facility], 176, cm, 09/07/22 8:56:00 EDT, Height, 82.1, kg, 09/07/22 8:59:00 EDT, Dry Weight Start Date: 10/06/22 Status: Ordered furosemide 20 mg oral tablet 1, tablet, By Mouth, Daily, R1., # 30 tablet, Refills 5, Tot. Refills 5, Maintenance, 09/03/22 14:50:00 EDT, Route to Pharmacy Electronically, [facility], 169, cm, 09/03/22 14:21:00 EDT, Height, 69, kg, 08/16/22 1:04:00 EST, Dry Weight Start Date: 09/03/22 Status: Ordered furosemide 20 mg oral tablet 20 mg, 1, tablet, By Mouth, Every other day, # 30 tablet, Refills 3, Tot. Refills 3, Maintenance, 01/28/23 12:31:00 EDT, Route to Pharmacy Electronically, [facility], Partial fill upon patient request if the prescription is for a schedule II o... Start Date: 01/28/23 Status: Ordered gabapentin 300 mg oral capsule 300 mg, 1, capsule, By Mouth, Daily at bedtime, note dose/frequency change, # 90 capsule, Refills 4, Tot. Refills 4, Maintenance, 11/05/22 11:05:00 EDT, [facility], [facility], cm, 11/05/22 10:21:00 EDT, Height, 88.9... Start Date: 11/05/22 Stop Date: 01/29/24 Status: Ordered hydrOXYzine hydrochloride 10 mg oral tablet 2 tablet, By Mouth, 2 times a day, PRN NEEDED FOR ANXIETY (VIAL), # 30 tablet, 3 Refills, Maintenance, 12/22/22 16:57:00 EDT, [facility], 175, cm, 12/03/22 11:50:00 EDT, Height, 88.9, kg, 10/21/22 20:41:00 EDT, Dry Weight Start Date: 12/22/22 Status: Ordered lactulose 10 gm/15 ml oral syrup 15 mL, By Mouth, 2 times a day, # 120 mL, 6 Refills, Maintenance, 02/26/23 10:11:00 EDT, [facility], 4, TAKE 15ML BY MOUTH TWO TIMES A DAY, 175, cm, 12/03/22 11:50:00 EDT, Height, 84, kg, 02/12/23 11:30:00 EDT, Dry Weight Start Date: 02/26/23 Status: Ordered Lidoderm 5% film 1 patch, Topically, Daily, remove patches after 12 hours NSAIDS contraindicated High dose tylenol contraindicated remove patches after 12 hours Nueropathy, # 30 patch, 5 Refills, Maintenance, 11/05/22 11:04:00 EDT, [facility], Partial klaudia... Start Date: 11/05/22 Status: Ordered magnesium oxide 400 mg oral tablet See Instructions, TAKE 1 TABLET BY MOUTH TWICE A DAY^1R1,1R4, # 60 tablet, 11 Refills, Maintenance,01/28/23 12:31:00 EDT, [facility], 175, cm, 12/03/22 11:50:00 EDT, Height, 88.9, kg, 10/21/22 20:41:00 EDT, Dry Weight Start Date: 01/28/23 Status: Ordered Melatonin 3 mg oral tablet 1 tablet, By Mouth, Daily at bedtime, PRN NEEDED FOR INSOMNIA (PACKAGE IN TRAY)^1R4, # 60 tablet, 5 Refills, Maintenance, 06/12/22 18:11:00 EST, [facility], 60, TAKE 1 TABLET [...] 02/26/23 10:11:00 EDT, Route to Pharmacy Electronically, [facility], 175, cm, 12/03/22 11:50:00 EDT, Height, [...] 11/05/22 11:31:00 EDT, Route to Pharmacy Electronically, [facility], Partial fill upon patient request if the prescription is for a schedule II opioid drug... Start Date: 11/05/22 Status: Ordered Tab-A-Jesse oral tablet 1 tablet, By Mouth, Daily, # 90 tablet, 1 Refills, 12/01/22 12:59:00 EDT, [facility], 28, 1tablet By Mouth Daily, 175, cm, 11/13/22 10:42:00 EDT, Height, 88.9, kg, 10/21/22 20:41:00 EDT, DryWeight Start Date: 12/01/22 Status: Ordered traZODone 50 mg oral tablet 2, tablet, By Mouth, Daily at bedtime, ^2R4., # 60 tablet, Refills 5, Maintenance, 02/26/23 10:11:00 EDT, Route to Pharmacy Electronically, [facility], 175, cm, 12/03/22 11:50:00 EDT, Height,84, [...] 02/09/23 23:18:00 EDT, Route to Pharmacy Electronically, [facility], 175, cm, 12/03/22 11:50:00 EDT, Height, 88.9, kg, 10/21/22 20:41:00 EDT, Dry Weight Start Date: 02/09/23 Status: Ordered Vitamin B6 50 mg oral tablet 1, tablet, By Mouth, Daily, R1., # 90 tablet, Refills 4, Maintenance, 11/16/22 13:39:00 EDT, Route to Pharmacy Electronically, [facility], 175, cm, 11/13/22 10:42:00 EDT, Height, [...] tablet, 3 Refills, Maintenance, 02/26/23 10:11:00 EDT, [facility], 175, cm, 12/03/22 11:50:00 EDT, Height, [...] Joyce Roach RN Position: [facility] RN Member Role: Primary Care Nurse Name: Mary Suazo RN Position: [facility] RN Member Role: Primary Care Nurse Name: Andres Pressley RN Position: [facility] RN Member Role: Primary Care Nurse Name: Jany Baig DO Position: [facility] Physician - Primary Care Member Role: PCP Address: Address: [address] [place] [address] Adult & [place] [address]- Name: Neida Ballard RN Position: [facility] RN Member [...] Role: Lifetime Consulting Provider Address: Address: [address] [place] [address]- Name: Ge Covarrubias RN Position: [facility] RN Member Role: Primary Care Nurse Name: Orin Elmoer RN Position: [facility] ED RN W/OE and Tasks Member Role: Primary Care Nurse Name: Allegra Liu RN Position: [facility] AMB Nurse Member Role: Primary Care Nurse Name: Shayan Pandya MD Position: [facility] Renal MD Member Role: Lifetime Consulting Physician Address: Address: [address] [place] [address] [address] [facility], [place] [address]- Name: Darlene Rodrigez RN Position: [facility] RN Member Role: Primary Care Nurse Name: Kwan Mills RN Position: [facility] RN Member Role: Primary Care Nurse Name: Dolores Can RN Position: S RN Member Role: Primary Care Nurse Name: Monica Rowell RN Position: S RN Member Role: Primary Care Nurse Name: Jimi Fitzpatrick RN Position: S RN Member Role: Primary Care Nurse Care Team Related Persons Name: RAULITOMARLEN Address: [place] [address] Name: MARLEN CABEZAS Address: [place] [address] Name: NICK CABEZAS Name: GEMA CABEZAS Address: [place] [address]
--- OUTSIDE RECORDS SUMMARY | 2023-12-15 20:58 | XMS_ITS | Continuity of Care Document ---
Author Organization [facility] ter Address [address] [place] [id number]- Care Team Providers Care Acid Dipper Name Role Phone Jany Baig DO Primary Care Physician Encounter [facility] Date(s): 07/09/22 - 07/09/[address] [address]- Encounter Diagnosis Scalp laceration(Final) - 07/09/22 Gait instability(Final) - 07/09/22 Discharge Disposition: A-D/C Home Attending Physician: Darlyn Jasmine DO Admitting Physician: Darlyn Jasmine DO Referring Physician: Not on Staff, Referring [...] n 1Result Comment: [facility]: [id number] 2Result Comment: [04/29/2017] [id number] 3Admin Note: FLUARIX 4Admin Note: 3 RDINJ 5Admin Note: #2 Medications acetaminophen 500 mg oral tablet 1 tablet, By Mouth, 4 times a day, PRN NEEDED FOR PAIN, MAX 4, PER DAY (VIAL., # 50 tablet, 11 Refills, Maintenance, 03/13/22 8:37:00 EDT, [facility], 175, cm, 01/06/22 10:34:00 EDT, Height, 78.3, kg, 12/26/21 19:05:00 EDT, Dry Weight Start Date: 03/13/22 Status: Ordered amLODIPine 5 mg oral tablet See Instructions, TAKE 1 TABLET BY MOUTH ONCE A DAY^1R1, # 30 tablet, 5 Refills, Maintenance, 05/13/22 16:24:00 EST, [facility], 175, cm, 04/09/22 15:34:00 EDT, Height, 78.3, kg, 12/26/21 19:05:00 EDT, Dry Weight Start Date: 05/13/22 Status: Ordered Co Q-10 100 mg oral capsule 1 capsule, By Mouth, 4 times a day, # 120 capsule, 5 Refills, Maintenance, 04/09/22 15:55:00 EDT, [facility], 175, cm, 04/09/22 15:34:00 EDT, Height, [...] [facility], 30, USE 1 SPRAY(S) INTO EACH NOSTRIL TWICE A DAY, 175, cm, 01/06/22 10:34:00 EDT, Height, 78.3, kg, 12/26/21 19... Start Date: 02/18/22 Status: Ordered folic acid 1 mg oral tablet 1 mg, 1, tablet, By Mouth, Daily, # 90 tablet, Refills 4, Tot. Refills 4, Maintenance, 10/27/21 10:40:00 EDT, [facility], [facility], Partial fill upon patient request if the prescription is for a schedule II opioid drug.... Start Date: 10/27/21 Stop Date: 01/20/23 Status: Ordered furosemide 20 mg oral tablet 1, tablet, By Mouth, Daily, note dose change, # 30 tablet, Refills 2, Tot. Refills 2, Maintenance, 04/09/22 15:53:00 EDT, Route to Pharmacy Electronically, [facility], 175, cm, 04/09/22 15:34:00 EDT, Height, [facility], 175, cm, 01/06/22 10:34:00 EDT, Height, 78.3, kg, 12/26/21 19:05:00 EDT, Dry Weight Start Date: 03/13/22 Status: Ordered lactulose 10 gm/15 ml oral syrup See Instructions, TAKE 30ML BY MOUTH THREE TIMES DAILY NEEDED TO ACHEIVE 3-4 BOWL MOVEMENTS PER DAY, # 3,000 mL, 10 Refills, [facility], 30, TAKE 30ML BY MOUTH THREE TIMES DAILY NEEDED TO ACHEIVE 3-4 BOWL MOVEMENTS PER DAY, 174, cm, 02/12... Start Date: 07/02/21 Status: Ordered lidocaine 0.5% topical gel 1 application, Topically, 3 times a day, # 120 Gm, 0 Refills, Acute 12/30/22 17:23:00 EDT, 12/30/2216:23:00 EDT, Gel, [facility], Partial fill upon patient request if the prescription is fora schedule II opioid drug., 1 application Topically... Start Date: 12/30/21 Stop Date: 12/30/22 Status: Ordered Lidoderm 5% film 1 patch, Topically, Daily, remove patches after 12 hours NSAIDS contraindicated High dose tylenol contraindicated, # 30 patch, 5 Refills, Maintenance, 12/26/21 9:33:00 EDT, [facility], Partial fill upon patient request if the prescription i... Start Date: 12/26/21 Status: Ordered magnesium oxide 400 mg oral tablet 1 tablet, By Mouth, 2 times a day, # 60 tablet, 11 Refills, Maintenance, 03/13/22 8:37:00 EDT, [facility], 175, cm, 01/06/22 10:34:00 EDT, Height, 78.3, kg, 12/26/21 19:05:00 EDT, Dry Weight Start Date: 03/13/22 Status: Ordered Melatonin 3 mg oral tablet 1 tablet, By Mouth, Daily at bedtime, PRN NEEDED FOR INSOMNIA (PACKAGE IN TRAY)^1R4, # 60 tablet, 5 Refills, Maintenance, 06/12/22 18:11:00 EST, [facility], [...] 04/09/22 16:00:00 EDT, Route to Pharmacy Electronically, [facility], Partial fill upon patient requestif the prescription is for a schedule II opioid remedios... Start Date: 04/09/22 Stop Date: 10/06/22 Status: Ordered Potassium Chloride (Eqv-K-Tab) 20 mEq oral tablet, extended release 2 tablet, By Mouth, Daily, # 180 tablet, 1 Refills, Maintenance, 05/13/22 9:48:00 EST, [facility], 175, cm, 04/09/22 15:34:00 EDT, Height, 78.3, kg, 12/26/21 19:05:00 EDT, Dry Weight Start Date: 05/13/22 Stop Date: 11/09/22 Status: Ordered pyridoxine 50 mg oral tablet 50 mg, 1, tablet, By Mouth, Daily, for 90 days, # 90 tablet, Refills 4, Tot. Refills 4, Acute 01/15/23 11:42:00 EDT, 10/22/21 11:42:00 EDT, Route to Pharmacy Electronically, [facility], Partial fill upon patient request if [...] 0 Refills, Maintenance, 03/12/22 17:21:00 EDT, Tablet, [id number], Partial fill upon patient request if the prescription is for a schedule II opioid drug., 175, cm,... Start Date: 03/12/22 Status: Ordered Tab-A-Jesse oral tablet 1 tablet, By Mouth, Daily, # 90 tablet, 9 Refills, [facility], 28, TAKE 1 TABLET BY MOUTH ONCE A DAY, 174, cm, 07/14/21 8:16:00 EST, Height, 81, kg, 02/27/21 14:06:00 EDT, Dry Weight Start Date: 07/22/21 Status: Ordered traZODone 50 mg oral tablet 2 TO 3 TABLETS, By Mouth, Daily at bedtime, #28 VIAL)^2R4., # 90 tablet, Refills 5, Maintenance, 06/12/22 18:11:00 EST, Route to Pharmacy Electronically, [facility], 179, cm, 06/08/22 7:37:00EST, Height, 84, kg, 06/01/22 12:27:00 EST, Dry Weight Start Date: 06/12/22 Status: Ordered Vitamin B1 100 mg oral tablet 1, tablet, By Mouth, Daily, # 90 tablet, Refills 3, Maintenance, 03/13/22 8:37:00 EDT, Route to Pharmacy Electronically, [facility], 175, cm, 01/06/22 10:34:00 EDT, Height, 78.3, kg, 12/26/2218:05:00 EDT, Dry Weight Start Date: 03/13/22 Status: Ordered Xifaxan 550 mg oral tablet 1 tablet, By Mouth, 2 times a day, ^1R1,1R4., # 60 tablet, 1 Refills, Maintenance, 06/12/22 18:10:00 EST, [facility], 179, cm, 06/08/22 7:37:00 EST, Height, [...] Exam Date Time Procedure Performing Provider Status 07/09/22 10:[address] Cervical Spine W/O Contrast Yen Lam; Auth (Verified) Notes: (CT Cervical Spine W/O Contrast) Reason For Exam: Trauma RESULT: CT Cervical Spine W/O Contrast CT Head/Brain W/O Contrast, CT Cervical Spine W/O Contrast INDICATION: Pt sitting, attempted to get walker, missed and fell and hit head on wall. +ETOH, dailydrinker. Legally blind. C collar on. Small lac to R forehead scalp area. No active bleeding.; Reason: Trauma; Clinical Question(s): Hematoma TECHNIQUE: Noncontrast head CT using axial technique and reconstructed in axial and coronal planes.Iterative reconstruction techniques are used to optimize dose and image quality. CTDIvol Body: 11.10 mGy, DLP Body: 266 mGy*cm. CTDIvol Head: 40.20 mGy, DLP Head: 671 mGy*cm. COMPARISON: CT head and cervical spine from 07/04/2022. FINDINGS: Baling Machine Operator view findings, lines and tubes: [...] CALVARIUM, SKULL BASE, AND SOFT TISSUES: No fracture. No acute osseous abnormalities. The paranasal sinuses and mastoid air cells are clear. Visualized orbits and globes are intact. The extracranial soft tissues are unremarkable. CERVICAL SPINE: Unchanged fracture of the right transverse process of the T1 vertebral body and right first rib at its costovertebral articulation. Unchanged old right posterior first and second posterior rib fractures. Normal alignment. No locked or perched facet. Mild degenerative changes of the cervical spine with endplate osteophytes most prominent at the C6-C7 levels. There is mild disc space narrowing at this level. OTHER BONES: Healing fractures of the ribs including bilateral first ribs and right second rib. Medial left clavicle fracture, previously seen, is partially seen on the coronal images. CERVICAL SOFT TISSUES AND LUNG APICES: No acute abnormality of the imaged soft tissues. Visualized lung apices are clear. IMPRESSION: 1. No acute intracranial pathology. 2. Healing fractures of the right transverse process of T1 vertebral body and ribs. I have personally reviewed the images and I agree with this report. WSN: [id number] Ordering Physician: Darlyn Jasmine Dictated By: Lowell Griffin MD Dictated Date/Time: 07/09/22 11:08 a Reviewed By: Eden Resendiz MD Signed By: Eden Resendiz MD Signed Date/Time: 07/09/22 11:13 am Transcribed By: MIRNA Transcribed Date/Time: 07/09/22 11:01 am * Exam Date Time Procedure Performing Provider Status 07/09/22 10:[address] Head/Brain W/O Contrast Yen Jules; Auth (Verified) Notes: (CT Head/Brain W/O Contrast) Reason For Exam: Trauma RESULT: CT Head/Brain W/O Contrast CT Head/Brain W/O Contrast, CT Cervical Spine W/O Contrast INDICATION: Pt sitting, attempted to get walker, missed and fell and hit head on wall. +ETOH, dailydrinker. Legally blind. C collar on. Small lac to R forehead scalp area. No active bleeding.; Reason: Trauma; Clinical Question(s): Hematoma TECHNIQUE: Noncontrast head CT using axial technique and reconstructed in axial and coronal planes.Iterative reconstruction techniques are used to optimize dose and image quality. CTDIvol Body: 11.10 mGy, DLP Body: 266 mGy*cm. CTDIvol Head: 40.20 mGy, DLP Head: 671 mGy*cm. COMPARISON: CT head and cervical spine from 07/04/2022. FINDINGS: Baling Machine Operator view findings, lines and tubes: [...] CALVARIUM, SKULL BASE, AND SOFT TISSUES: No fracture. No acute osseous abnormalities. The paranasal sinuses and mastoid air cells are clear. Visualized orbits and globes are intact. The extracranial soft tissues are unremarkable. CERVICAL SPINE: Unchanged fracture of the right transverse process of the T1 vertebral body and right first rib at its costovertebral articulation. Unchanged old right posterior first and second posterior rib fractures. Normal alignment. No locked or perched facet. Mild degenerative changes of the cervical spine with endplate osteophytes most prominent at the C6-C7 levels. There is mild disc space narrowing at this level. OTHER BONES: Healing fractures of the ribs including bilateral first ribs and right second rib. Medial left clavicle fracture, previously seen, is partially seen on the coronal images. CERVICAL SOFT TISSUES AND LUNG APICES: No acute abnormality of the imaged soft tissues. Visualized lung apices are clear. IMPRESSION: 1. No acute intracranial pathology. 2. Healing fractures of the right transverse process of T1 vertebral body and ribs. I have personally reviewed the images and I agree with this report. WSN: [id number] Ordering Physician: Darlyn Jasmnie Dictated By: Lowell Griffin MD Dictated Date/Time: 07/09/22 11:08 a Reviewed By: Eden Resendiz MD Signed By: Eden Resendiz MD Signed Date/Time: 07/09/22 11:13 am Transcribed By: MIRNA Transcribed Date/Time: 07/09/22 11:01 am Vital Signs Most recent to oldest [Reference Range]: 1 2 3 Oxygen Saturation [94-100 %] 100 % (07/09/22 1:44 PM) 100 % (07/09/22 12:07 PM) 100 % (07/09/22 9:24 AM) Pulse Rate [55-90 bpm] 96 bpm *H* (07/09/22 1:44 PM) 99 bpm *H* (07/09/22 12:07 PM) 89 bpm (07/09/22 9:24 AM) Blood Pressure [90-138/55-84 mm Hg] 149/76mm Hg *H* (07/09/22 1:44 PM) 137/79mm Hg (07/09/22 12:07 PM) 135/68mm Hg (07/09/22 9:24 AM) Respiratory Rate [16-30 br/min] 18 br/min (07/09/22 1:44 PM) 16 br/min (07/09/22 12:07 PM) 16 br/min (07/09/22 9:24 AM) Temperature [96.8-100.4 DegF] 97.8 DegF (07/09/22 1:44 PM) 97.5 DegF (07/09/22 12:07 PM) 98.1 DegF (07/09/22 9:24 AM) Mode of Delivery (Oxygen) Room air (07/09/22 1:44 PM) Room air (07/09/22 12:07 PM) Room air (07/09/22 9:24 AM) Blood pressure sites Arm, left (07/09/22 1:44 PM) Arm, left (07/09/22 12:07 PM) Arm, left (07/09/22 9:24 AM) Temperature Route Oral (07/09/22 1:44 PM) Oral (07/09/22 12:07 PM) Oral (07/09/22 9:24 AM) Social History Social History Type Response Smoking Status 10 or more cigarette s (1/2 pack or more)/day in last 30 days entered on: 02/04/19 Sex EKG study * Event Display: ECG 12-Lead Authored Date: Please click on pdf link to open report * Event Display: ECG 12-Lead Authored Date: Ventricular Rate: 80 BPM Atrial Rate: 80 BPM P-R Interval: 140 ms QRS Duration: 90 ms Q-T Interval: 412 ms QTC Calculation(Bazett): 475 ms P [place]: 22 degrees R [place]: 29 degrees T [place]: 9 degrees Normal sinus rhythm Normal ECG When compared with ECG of 01-MAR-2022 23:54, No significant change was found Confirmed by DOYLE GE MD ([id number]) on 07/09/2022 12:05:07 PM Jackson: DOYLE GE MD Note * Darlyn Jasmine DO: PERFORM, SIGN, VERIFY Event Display: Patient Education Handout Authored Date: [id number] * Darlyn Jasmine DO: PERFORM Event Display: Patient Education Leaflets Authored Date: [id number] Fall??Prevention ?? [id number] Fall??Prevention Falls often take place due to [...] more often. Last Reviewed Date: 2021 ?? [id number] The [employer]. All rights reserved. This information is not intended as a substitute for professional medical care. Always follow your healthcare professional's instructions. ?? * Kenroy DO, Darlyn A: PERFORM Event Display: Patient Education Leaflets Authored Date: [id number] Scalp Laceration, Stitches or [place] ?? [id number] Scalp Laceration, Stitches or Cecilia A laceration is a cut through the skin. A scalp laceration may require stitches or cecilia. It may also be closed with a hair positioning method, such as braiding. There are a lot of blood vessels inthe scalp. Because of this, a lot of bleeding is common with scalp cuts. You may need a tetanus shot if you're not up to date on your tetanus vaccine. Home care These guidelines will help you care for your laceration at home: ??? Follow your healthcare provider's specific directions on washing your hair and scalp. During the first 2 days you may carefully rinse your hair in the shower to remove blood and glass or dirt particles, or as advised by your provider. After 2 days you may shower and shampoo your hair normally. Don't scrub the repaired area or let water run on it for a long time. ??? Have someone help you clean your wound every day: o In the shower, wash the area with soap and water. Use a wet cotton swab to loosen and remove any blood or crust that forms. o After cleaning, keep the wound clean and dry. Talk with your healthcare provider about applying antibiotic ointment to the wound. Apply a fresh bandage. ??? Don't put your head underwater until the stitches or cecilia have been removed. This means no swimming. ??? Your provider may prescribe an antibiotic cream or ointment to prevent infection. Don't stop taking this medicine until you've finished the medicine that was prescribed, or your provider tells you to stop. ??? Your prov ider may prescribe medicines for pain. If no pain medicines were prescribed, you can use [id number] pain medicines. Follow instructions for taking these medicines. Talk with your provider before using these medicines if you have chronic liver or kidney disease. Also talk with your provider ifyou've ever had a stomach ulcer or digestive tract bleeding. ??? To help prevent scarring, put sunscreen on the wound after it has healed. Use a sunscreen with SPF of 30 or higher. Reapply sunscreen often. ?? Follow-up care Follow up with your healthcare provider as advised. Check the wound daily for the signs of infection listed below. Stitches or cecilia are often removed from the scalp in about 7 to 10 days. ?? Call 911 Call 911 if this occurs: ??? Bleeding can't be controlled by direct pressure ?? When to get medical advice Call your healthcare provider right away if any of the following occur: ??? Signs of infection, including increasing pain in the wound, redness, swelling, or pus coming from the wound ??? Fever of 100.4??F (38??C) or higher, or as advised by your provider ??? Chills ??? Stitches or cecilia come apart or fall out before 7 days ??? Wound edges reopen ?? Last Reviewed Date: 2021 ?? [id number] The [employer]. All rights reserved. This information is not intended as a substitute for professional medical care. Always follow your healthcare professional's instructions. ?? CT Cervical spine WO contrast * [facility] , CIS S: TRANSCROSALIND Griffin MD, Lowell A: [place] Resendiz MD, Eden: VERIFY Event Display: Result: Authored Date: [id number] CT Head/Brain W/O Contrast, CT Cervical Spine W/O Contrast INDICATION: Pt sitting, attempted to get walker, missed and fell and hit head on wall. +ETOH, dailydrinker. Legally blind. C collar on. Small lac to R forehead scalp area. No active bleeding.; Reason: Trauma; Clinical Question(s): Hematoma TECHNIQUE: Noncontrast head CT using axial technique and reconstructed in axial and coronal planes.Iterative reconstruction techniques are used to optimize dose and image quality. CTDIvol Body: 11.10 mGy, DLP Body: 266 mGy*cm. CTDIvol Head: 40.20 mGy, DLP Head: 671 mGy*cm. COMPARISON: CT head and cervical spine from 07/04/2022. FINDINGS: Baling Machine Operator view findings, lines and tubes: [...] CALVARIUM, SKULL BASE, AND SOFT TISSUES: No fracture. No acute osseous abnormalities. The paranasal sinuses and mastoid air cells are clear. Visualized orbits and globes are intact. The extracranial soft tissues are unremarkable. CERVICAL SPINE: Unchanged fracture of the right transverse process of the T1 vertebral body and right first rib at its costovertebral articulation. Unchanged old right posterior first and second posterior rib fractures. Normal alignment. No locked or perched facet. Mild degenerative changes of the cervical spine with endplate osteophytes most prominent at the C6-C7 levels. There is mild disc space narrowing at this level. OTHER BONES: Healing fractures of the ribs including bilateral first ribs and right second rib. Medial left clavicle fracture, previously seen, is partially seen on the coronal images. CERVICAL SOFT TISSUES AND LUNG APICES: No acute abnormality of the imaged soft tissues. Visualized lung apices are clear. IMPRESSION: 1. No acute intracranial pathology. 2. Healing fractures of the right transverse process of T1 vertebral body and ribs. I have personally reviewed the images and I agree with this report. WSN: [id number] Ordering Physician: Darlyn Jasmine Dictated By: Lowell Griffin MD Dictated Date/Time: 07/09/22 11:08 a Reviewed By: Eden Resendiz MD Signed By: Eden Resendiz MD Signed Date/Time: 07/09/22 11:13 am Transcribed By: MIRNA Transcribed Date/Time: 07/09/22 11:[address] Head WO contrast * [facility] , CIS S: TRANSCRIBE Lowell Griffin MD: SIGN Eden Resendiz MD: VERIFY Event Display: Result: Authored Date: [id number] CT Head/Brain W/O Contrast, CT Cervical Spine W/O Contrast INDICATION: Pt sitting, attempted to get walker, missed and fell and hit head on wall. +ETOH, dailydrinker. Legally blind. C collar on. Small lac to R forehead scalp area. No active bleeding.; Reason: Trauma; Clinical Question(s): Hematoma TECHNIQUE: Noncontrast head CT using axial technique and reconstructed in axial and coronal planes.Iterative reconstruction techniques are used to optimize dose and image quality. CTDIvol Body: 11.10 mGy, DLP Body: 266 mGy*cm. CTDIvol Head: 40.20 mGy, DLP Head: 671 mGy*cm. COMPARISON: CT head and cervical spine from 07/04/2022. FINDINGS: Baling Machine Operator view findings, lines and tubes: [...] CALVARIUM, SKULL BASE, AND SOFT TISSUES: No fracture. No acute osseous abnormalities. The paranasal sinuses and mastoid air cells are clear. Visualized orbits and globes are intact. The extracranial soft tissues are unremarkable. CERVICAL SPINE: Unchanged fracture of the right transverse process of the T1 vertebral body and right first rib at its costovertebral articulation. Unchanged old right posterior first and second posterior rib fractures. Normal alignment. No locked or perched facet. Mild degenerative changes of the cervical spine with endplate osteophytes most prominent at the C6-C7 levels. There is mild disc space narrowing at this level. OTHER BONES: Healing fractures of the ribs including bilateral first ribs and right second rib. Medial left clavicle fracture, previously seen, is partially seen on the coronal images. CERVICAL SOFT TISSUES AND LUNG APICES: No acute abnormality of the imaged soft tissues. Visualized lung apices are clear. IMPRESSION: 1. No acute intracranial pathology. 2. Healing fractures of the right transverse process of T1 vertebral body and ribs. I have personally reviewed the images and I agree with this report. WSN: [id number] Ordering Physician: Darlyn Jasmine Dictated By: Lowell Griffin MD Dictated Date/Time: 07/09/22 11:08 a Reviewed By: Eden Resendiz MD Signed By: Eden Resendiz MD Signed Date/Time: 07/09/22 11:13 am Transcribed By: MIRNA Transcribed Date/Time: 07/09/22 11:01 am Patient Care team information Care Team Personnel Name: Alexandra Colmenares RN Position: [facility] ED RN W/OE and Tasks Member Role: Primary Care Nurse Name: Garima Manzano RN Position: [facility] RN Member Role: Primary Care Nurse Name: Malgorzata Marinelli RN Position: [facility] RN Member Role: Primary Care Nurse Name: Joyce Roach RN Position: [facility] RN Member Role: Primary Care Nurse Name: Mary Suazo RN Position: [facility] RN Member Role: Primary Care Nurse Name: Danyel Davis RN Position: [facility] RN Member Role: Primary Care Nurse Name: Yenny Bernstein Position: [facility] RN Member Role: Primary Care Nurse Name: Andres Pressley RN Position: [facility] RN Member Role: Primary Care Nurse Name: Jany Baig DO Position: [facility] Primary Care Physician Member Role: PCP Address: Address: [address] [place] [address] [facility] [place] [address]- Name: Neida Ballard RN Position: [facility] RN Member Role: Primary Care Nurse Name: Kaye Payne RN Position: [facility] RN Member Role: Primary Care Nurse Name: Garima Hutchinson Position: [facility] RN Member Role: Primary Care Nurse Name: Malgorzata Austin Position: [facility] RN Member Role: Primary Care Nurse Name: Torrie Hernandez RN Position: [facility] OB RN Member Role: Primary Care Nurse Name: Gretchen Knutson RN Position: [facility] SN RN Member Role: Primary Care Nurse Name: Aislinn Mckee RN Position: [facility] RN Member Role: Primary Care Nurse Name: Ashley Mcelroy Position: [facility] RN Member Role: Primary Care Nurse Name: Cody Garcia Position: [facility] Associate Professional Member Role: [employer] Consult[employer] Provider Address: Address: [address] [place] [id number]- Name: Ge Covarrubias RN Position: [facility] RN Member Role: Primary Care Nurse Name: Orin Elmore RN Position: [facility] ED RN W/OE and Tasks Member Role: Primary Care Nurse Name: Allegra Liu RN Position: [facility] PCO RN Member Role: Primary Care Nurse Name: Shayan Pandya MD Position: [facility] Renal MD Member Role: [employer] Consulting Physician Address: Address: [address] [facility] [place] [address]- Name: Darlene Rodrigez RN Position: [facility] RN Member Role: Primary Care Nurse Name: Kwan Mills RN Position: [facility] RN Member Role: Primary Care Nurse Name: Dolores Can RN Position: [facility] RN Member Role: Primary Care Nurse Name: Kim Rendon RN Position: [facility] RN Member Role: Primary Care Nurse Name: Monica Rowell RN Position: [facility] RN Member Role: Primary Care Nurse Name: Perlita Roldan RN Position: [facility] ED RN W/OE and Tasks Member Role: Patient Care Provider Name: Darlyn Jasmine DO Position: [facility] ED Medicine MD Member Role: Admitting Physician Address: Address: [address] [facility] [place] [address]- Care Team Related Persons Name: MARLEN CABEZAS Address: home [address] [place] [address] Name: MARLEN CABEZAS Address: home [address] [place] [address] Name: NICK CABEZAS Name: GEMA CABEZAS Address: home [address] [place] [address]
--- OUTSIDE RECORDS SUMMARY | 2023-12-15 20:58 | XMS_ITS | Continuity of Care Document ---
Author Organization [facility] Infectious Disease Address [address] [place] [address]- Care Team Providers Care Cryptologic Technician Name Role Phone Jany Baig DO Primary Care Physician Encounter [facility] Date(s): 05/20/23 - 06/19/23 [facility] Infectious Disease [address] [place] [id number]- Attending Physician: Venice Salmon Admitting Physician: Venice [...] influenza virus vaccine, inactivated 1 04/09/22 Gi cleoaptra influenza virus vaccine, inactivated 03/10/21 Nikhil rded [...] acel (oldterm) 08/02/12 Give n 1Result Comment: [facility]: 36178-963-44 2Result Comment: [04/29/2017] [id number] 3Admin Note: FLUARIX 4Admin Note: 3 RDINJ 5Admin Note: #2 Medications acamprosate 333 mg oral delayed release tablet 1 tablet = 333 mg, By Mouth, 3 times a day, # 42 tablet, 4 Refills, Maintenance, 11/05/22 11:31:00 EDT, EC Tablet, [facility], Partial fill upon patient request if the prescription is for a schedule II opioid drug., 175, cm, 11/05/22 10:21:00... Start Date: 11/05/22 Stop Date: 01/14/23 Status: Ordered amLODIPine 5 mg oral tablet 1 tablet, By Mouth, Daily, ^1R1., # 30 tablet, 2 Refills, Maintenance, 06/02/23 8:00:00 EST, [facility], 175, cm, 03/22/23 6:50:00 EDT, Height, 77.5, kg, 03/20/23 11:30:00 EDT, Dry Weight Start Date: 06/02/23 Status: Ordered baclofen 10 mg oral tablet See Instructions, TAKE ONE TABLET BY MOUTH THREE TIMES A DAY ^1R1,1R2,1R4, # 90 tablet, Refills 5, Tot. Refills 5, Maintenance, 01/14/23 17:55:00 EDT, Instructions Replace Required Details, [facility], 175, cm... Start Date: 01/14/23 Status: [...] tablet, 0 Refills, Maintenance, 12/01/22 16:12:00 EDT, [facility], 28, 1 tablet By Mouth Daily,Instr:^1R1., [...] capsule, 6 Refills, Maintenance, 12/03/22 12:13:00 EDT, [facility], 175, cm, 12/03/22 11:50:00 EDT, Height, [...] Gm, 12 Refills, Maintenance, 03/24/23 10:52:00 EDT, [facility], 28, APPLY TOPICALLY TO AFFECTED AREA(S) [...] Gm, 11 Refills, Maintenance, 08/07/22 12:12:00 EST, [facility]/pharmacy #[id number], 30, USE 1 SPRAY(S) INTO EACH NOSTRIL TWICE A DAY, 176, cm,08/07/22 11:37:00 EST, Height, 79.8, kg, 07/31/22 2... Start Date: 08/07/22 Status: Ordered folic acid 1 mg oral tablet 1, tablet, By Mouth, Daily, ^1R1., # 30 tablet, Refills 5, Maintenance, 03/20/23 16:22:00 EDT, Route to Pharmacy Electronically, [facility], 175, cm, 03/20/23 15:31:00 EDT, Height, 77.5, kg, 03/20/23 11:30:00 EDT, Dry Weight Start Date: 03/20/23 Status: Ordered furosemide 20 mg oral tablet 20 mg, 1, tablet, By Mouth, Every other day, # 30 tablet, Refills 3, Tot. Refills 3, Maintenance, 01/28/23 12:31:00 EDT, Route to Pharmacy Electronically, [facility], Partial fill upon patient request if the prescription is for a schedule II o... Start Date: 01/28/23 Status: Ordered gabapentin 300 mg oral capsule 300 mg, 1, capsule, By Mouth, Daily at bedtime, note dose/frequency change, # 90 capsule, Refills 4, Tot. Refills 4, Maintenance, 11/05/22 11:05:00 EDT, Route to Pharmacy Electronically, [facility], 175, cm, 11/05/22 10:21:00 EDT, Height, 88.9... Start Date: 11/05/22 Stop Date: 01/29/24 Status: Ordered hydrOXYzine hydrochloride 10 mg oral tablet 2 tablet, By Mouth, 2 times a day, PRN NEEDED FOR ANXIETY (VIAL), # 30 tablet, 3 Refills, Maintenance, 04/16/23 16:41:00 EDT, [facility], 175, cm, 03/22/23 6:50:00 EDT, Height, 77.5, kg, 03/20/23 11:30:00 EDT, Dry Weight Start Date: 04/16/23 Status: Ordered lactulose 10 gm/15 ml oral syrup 15 mL, By Mouth, 2 times a day, # 120 mL, 6 Refills, Maintenance, 02/26/23 10:11:00 EDT, [facility], 4, TAKE 15ML BY MOUTH TWO TIMES A DAY, 175, cm, 12/03/22 11:50:00 EDT, Height, 84, kg, 02/12/23 11:30:00 EDT, Dry Weight Start Date: 02/26/23 Status: Ordered magnesium oxide 400 mg oral tablet See Instructions, TAKE 1 TABLET BY MOUTH TWICE A DAY^1R1,1R4, # 60 tablet, 11 Refills, Maintenance,01/28/23 12:31:00 EDT, [facility], 175, cm, 12/03/22 11:50:00 EDT, Height, 88.9, kg, 10/21/22 20:41:00 EDT, Dry Weight Start Date: 01/28/23 Status: Ordered Melatonin 3 mg oral tablet 1 tablet, By Mouth, Daily at bedtime, PRN NEEDED FOR INSOMNIA (PACKAGE IN TRAY)^1R4, # 60 tablet, 5 Refills, Maintenance, 04/16/23 16:41:00 EDT, [facility], 60, TAKE 1 TABLET BY MOUTH [...] Electronically, [facility], 175, cm, 12/03/22 11:50:00 EDT, Height, [...] Electronically, [facility], 175, cm, 03/22/23 6:50:00 EDT, Height, 77.5, kg, 03/20/23 11:30:00 EDT, Dry Weight Start Date: 04/14/23 Status: Ordered Tab-A-Jesse oral tablet 1 tablet, By Mouth, Daily, R1., # 30 tablet, 5 Refills, Maintenance, 05/06/23 19:16:00 EST, [facility], 30, TAKE 1 TABLET BY MOUTH ONCE A DAY^1R1, 175, cm, 03/22/23 6:50:00 EDT, Height, 77.5,kg, 03/20/23 11:30:00 EDT, Dry Weight Start Date: 05/06/23 Status: Ordered traZODone 50 mg oral tablet 2, tablet, By Mouth, Daily at bedtime, ^2R4., # 60 tablet, Refills 5, Maintenance, 02/26/23 10:11:00 EDT, Route to Pharmacy Electronically, [facility], 175, cm, 12/03/22 11:50:00 EDT, Height,84, [...] Electronically, [facility], 175, cm, 12/03/22 11:50:00 EDT, Height, 88.9, kg, 10/21/22 20:41:00 EDT, Dry Weight Start Date: 02/09/23 Status: Ordered Vitamin B6 50 mg oral tablet 1, tablet, By Mouth, Daily, R1., # 90 tablet, Refills 4, Maintenance, 11/16/22 13:39:00 EDT, Route to Pharmacy Electronically, [facility], 175, cm, 11/13/22 10:42:00 EDT, Height, [...] tablet, 0 Refills, Maintenance, 06/08/23 14:59:00 EST, [facility], 175, cm, 03/22/23 6:50:00 EDT, Height, [...] Team Personnel Name: Alexandra Colmenares RN [facility] Care Member Role: PCP Address: Address: [address] [place] [address] Adult [facility] [place] [address]- Name: Kaye Payne RN Position: [facility] RN Member Role: Primary Care Nurse Name: Garima Hutchinson Position: [facility] RN Member Role: Primary Care Nurse Name: Malgorzaat Austin Position: [facility] RN [...] Role: Lifetime Consulting Provider Address: Address: [address] [place] [address]- [place] Name: Paige Nascimento RN Position: [facility] RN Member Role: Primary Care Nurse Name: Ge Covarrubias RN Position: [facility] RN Member Role: Primary Care Nurse Name: Orin Elmore RN Position: [facility] ED RN W/OE and Tasks Member Role: Primary Care Nurse Name: Allegra Liu RN Position: [facility] AMB Nurse Member Role: Primary Care Nurse Name: Shayan Pandya MD Position: [facility] Renal MD Member Role: Lifetime Consulting Physician Address: Address: [address] [place] [address] [address] [facility], [place] [address]- Name: Darlene Rodrigez RN Position: [facility] RN Member Role: Primary Care Nurse Name: Dolores Can RN Position: [facility] RN [...] Related Persons Name: CAWUMARLEN Address: [address] [place] [address] Name: MARLEN CABEZAS Address: [address] [place] [address] Name: NICK CABEZAS Name: GEMA CABEZAS Address: [address] [place] [address]
--- OUTSIDE RECORDS SUMMARY | 2023-12-15 20:59 | XMS_ITS | Continuity of Care Document ---
Author Organization [facility] Address [address] [place] [address]- Care Team Providers Care Esl Teacher Name Role Phone Jany Baig DO Primary Care Physician ( [phone] Encounter [facility] Date(s): 05/03/23 - 06/02/23 [facility] [address] [place] [address]- Allergies, Adverse Reactions, Alerts Substance Reaction Severity [...] Nikhil rded influenza virus vaccine, inactivated 02/25/18 Nikihl rded influenza virus vaccine, inactivated 02/12/18 Nikhil [...] Give n 1Result Comment: [facility]: [id number] 2Result Comment: [04/29/2017] [id number] 3Admin Note: FLUARIX 4Admin Note: 3 RDINJ 5Admin Note: #2 Medications acamprosate 333 mg oral delayed release tablet 1 tablet = 333 mg, By Mouth, 3 times a day, # 42 tablet, 4 Refills, Maintenance, 11/05/22 11:31:00 EDT, EC Tablet, [facility], Partial fill upon patient request if the prescription is for a schedule II opioid drug., 175, cm, 11/05/22 10:21:00... Start Date: 11/05/22 Stop Date: 01/14/23 Status: Ordered amLODIPine 5 mg oral tablet 1 tablet, By Mouth, Daily, ^1R1., # 30 tablet, 2 Refills, Maintenance, 06/02/23 8:00:00 EST, [facility], 175, cm, 03/22/23 6:50:00 EDT, Height, 77.5, kg, 03/20/23 11:30:00 EDT, Dry Weight Start Date: 06/02/23 Status: Ordered baclofen 10 mg oral tablet See Instructions, TAKE ONE TABLET BY MOUTH THREE TIMES A DAY ^1R1,1R2,1R4, # 90 tablet, Refills 5, Tot. Refills 5, Maintenance, 01/14/23 17:55:00 EDT, Instructions Replace Required Details, [facility] to Pharm[facility]ically, [facility], 175, cm... Start Date: 01/14/23 Status: Ordered calcium (as carbonate)-vitamin D 500 mg-400 intl units oral tablet 1 tablet, By Mouth, Daily, ^1R1., # 28 tablet, 0 Refills, Maintenance, 12/01/22 16:12:00 EDT, [facility], 28, 1 tablet By Mouth Daily,Instr:^1R1., [...] capsule, 6 Refills, Maintenance, 12/03/22 12:13:00 EDT, [facility], 175, cm, 12/03/22 11:50:00 EDT, Height, [...] Gm, 12 Refills, Maintenance, 03/24/23 10:52:00 EDT, [facility], 28, APPLY TOPICALLY TO AFFECTED AREA(S) [...] 03/20/23 16:22:00 EDT, Route to Pharmacy Electronically, [facility], 175, cm, 03/20/23 15:31:00 EDT, Height, 77.5, kg, 03/20/23 11:30:00 EDT, Dry Weight Start Date: 03/20/23 Status: Ordered furosemide 20 mg oral tablet 20 mg, 1, tablet, By Mouth, Every other day, # 30 tablet, Refills 3, Tot. Refills 3, Maintenance, 01/28/23 12:31:00 EDT, Route to Pharmacy Electronically, [facility], Partial fill upon patient request if the prescription is for a schedule II o... Start Date: 01/28/23 Status: Ordered gabapentin 300 mg oral capsule 300 mg, 1, capsule, By Mouth, Daily at bedtime, note dose/frequency change, # 90 capsule, Refills 4, Tot. Refills 4, Maintenance, 11/05/22 11:05:00 EDT, Route to Pharmacy Electronically, [facility], 175, cm, 11/05/22 10:21:00 EDT, Height, 88.9... Start Date: 11/05/22 Stop Date: 01/29/24 Status: Ordered hydrOXYzine hydrochloride 10 mg oral tablet 2 tablet, By Mouth, 2 times a day, PRN NEEDED FOR ANXIETY (VIAL), # 30 tablet, 3 Refills, Maintenance, 04/16/23 16:41:00 EDT, [facility], 175, cm, 03/22/23 6:50:00 EDT, Height, 77.5, kg, 03/20/23 11:30:00 EDT, Dry Weight Start Date: 04/16/23 Status: Ordered lactulose 10 gm/15 ml oral syrup 15 mL, By Mouth, 2 times a day, # 120 mL, 6 Refills, Maintenance, 02/26/23 10:11:00 EDT, [facility], 4, TAKE 15ML BY MOUTH TWO TIMES A DAY, 175, cm, 12/03/22 11:50:00 EDT, Height, 84, kg, 02/12/23 11:30:00 EDT, Dry Weight Start Date: 02/26/23 Status: Ordered magnesium oxide 400 mg oral tablet See Instructions, TAKE 1 TABLET BY MOUTH TWICE A DAY^1R1,1R4, # 60 tablet, 11 Refills, Maintenance,01/28/23 12:31:00 EDT, [facility], 175, cm, 12/03/22 11:50:00 EDT, Height, 88.9, kg, 10/21/22 20:41:00 EDT, Dry Weight Start Date: 01/28/23 Status: Ordered Melatonin 3 mg oral tablet 1 tablet, By Mouth, Daily at bedtime, PRN NEEDED FOR INSOMNIA (PACKAGE IN TRAY)^1R4, # 60 tablet, 5 Refills, Maintenance, 04/16/23 16:41:00 EDT, [facility], 60, TAKE 1 TABLET BY MOUTH [...] 02/26/23 10:11:00 EDT, Route to Pharmacy Electronically, [facility], 175, cm, 12/03/22 11:50:00 EDT, Height, [...] 04/14/23 12:41:00 EDT, Route to Pharmacy Electronically, [facility], 175, cm, 03/22/23 6:50:00 EDT, Height, 77.5, kg, 03/20/23 11:30:00 EDT, Dry Weight Start Date: 04/14/23 Status: Ordered Tab-A-Jesse oral tablet 1 tablet, By Mouth, Daily, R1., # 30 tablet, 5 Refills, Maintenance, 05/06/23 19:16:00 EST, [facility], 30, TAKE 1 TABLET BY MOUTH ONCE A DAY^1R1, 175, cm, 03/22/23 6:50:00 EDT, Height, 77.5,kg, 03/20/23 11:30:00 EDT, Dry Weight Start Date: 05/06/23 Status: Ordered traZODone 50 mg oral tablet 2, tablet, By Mouth, Daily at bedtime, ^2R4., # 60 tablet, Refills 5, Maintenance, 02/26/23 10:11:00 EDT, Route to Pharmacy Electronically, [facility], 175, cm, 12/03/22 11:50:00 [...] 23:18:00 EDT, Route to Pharmacy Electronically, [facility], 175, cm, 12/03/22 11:50:00 EDT, Height, 88.9, kg, 10/21/22 20:41:00 EDT, Dry Weight Start Date: 02/09/23 Status: Ordered Vitamin B6 50 mg oral tablet 1, tablet, By Mouth, Daily, R1., # 90 tablet, Refills 4, Maintenance, 11/16/22 13:39:00 EDT, Route to Pharmacy Electronically, [facility], 175, cm, 11/13/22 10:42:00 [...] tablet, 3 Refills, Maintenance, 02/26/23 10:11:00 EDT, [facility], 175, cm, 12/03/22 11:50:00 EDT, Height, [...] Joyce Roach RN Position: [facility] ED RN W/OE and Tasks Member Role: Primary Care Nurse Name: Mary Suazo RN Position: [facility] RN Member Role: Primary Care Nurse Name: Andres Pressley RN Position: [facility] ED RN W/OE and Tasks Member Role: Primary Care Nurse Name: Jany Baig DO Position: [facility] Physician - Primary Care Member Role: PCP Address: Address: [address] [place] [address] Adult [place] [address]- Name: Kaye Payne RN Position: [facility] RN Member Role: Primary Care Nurse Name: Garima Hutchinson Position: [facility] RN Member Role: Primary Care Nurse Name: Malgorzata Austin Position: [facility] RN Member Role: Primary Care Nurse Name: Ibeth Adams RN Position: [facility] RN Member [...] Care Nurse Name: Ashok Kevin RN Position: [facility] RN Member Role: Primary Care Nurse Name: Cody Garcia Position: [facility] Associate Professional Member Role: Lifetime Consulting Provider Address: Address: [address] [place] [address]- Name: Paige Nascimento RN Position: [facility] RN Member Role: Primary Care Nurse Name: Ge Covarrubias RN Position: [facility] RN Member Role: Primary Care Nurse Name: Orin Elmore RN Position: [facility] ED RN W/OE and Tasks Member Role: Primary Care Nurse Name: Allegra Liu RN Position: [facility] AMB Nurse Member Role: Primary Care Nurse Name: Shayan Pandya MD Position: [facility] Renal MD Member Role: Lifetime Consulting Physician Address: Address: [address] [place] [address] [address] [facility] [place], [place] [address]- Name: Darlene Rodrigez RN Position: S RN [...] Care Nurse Name: Jimi Fitzpatrick RN Position: [facility] RN Member Role: Primary Care Nurse Care Team Related Persons Name: MARLEN CABEZAS Address: [address] [address] Name: MARLEN CABEZAS Address: home [address] [place] [id number] Name: NICK CABEZAS Name: GEMA CABEZAS Address: [address] [address]
--- OUTSIDE RECORDS SUMMARY | 2023-12-15 20:59 | XMS_ITS | Continuity of Care Document ---
Author Organization [facility] Address [address] [place] [address]- Care Team Providers Care Quality Improvement Consultant Name Role Phone Jany Baig DO Primary Care Physician [facility]counter [facility] Date(s): 07/23/22 - 08/22/22 [facility] [address] [place] [id number] [place] Allergies, Adverse Reactions, Alerts Substance Reaction [...] 1Result Comment: [facility]: [id number] 2Result Comment: [04/29/2017] [id number] 3Admin Note: FLUARIX 4Admin Note: 3 RDINJ 5Admin Note: #2 Medications acetaminophen 500 mg oral tablet 1 tablet, By Mouth, 4 times a day, PRN NEEDED FOR PAIN, MAX 4, PER DAY (VIAL., # 50 tablet, 11 Refills, Maintenance, 03/13/22 8:37:00 EDT, [facility], 175, cm, 01/06/22 10:34:00 EDT, Height, 78.3, kg, 12/26/21 19:05:00 EDT, Dry Weight Start Date: 03/13/22 Status: Ordered amLODIPine 5 mg oral tablet See Instructions, TAKE 1 TABLET BY MOUTH ONCE A DAY^1R1, # 30 tablet, 5 Refills, Maintenance, 05/13/22 16:24:00 EST, [facility], 175, cm, 04/09/22 15:34:00 EDT, Height, 78.3, kg, 12/26/21 19:05:00 EDT, Dry Weight Start Date: 05/13/22 Status: Ordered baclofen 10 mg oral tablet See Instructions, TAKE 1 TABLET BY MOUTH THREE TIMES DAILY, # 90 tablet, Refills 0, Maintenance, 08/07/22 12:26:00 EST, Instructions Replace Required Details, Route to Pharmacy Electronically, [facility], 176, cm, 08/07/22 11:37:00 EST, Height... Start Date: 08/07/22 Status: Ordered cephalexin monohydrate 500 mg oral capsule 1 capsule = 500 mg, By Mouth, 4 times a day, for 10 days, # 40 capsule, 0 Refills, Acute 08/24/22 13:49:00 EDT, 08/14/22 13:49:00 EST, Capsule, [facility]/pharmacy #[id number], Partial fill upon patient request if the prescription is for a schedule II opioid drug.... Start Date: 08/14/22 Stop Date: 08/24/22 Status: Ordered Co Q-10 100 mg oral capsule See Instructions, TAKE 1 CAPSULE BY MOUTH FOUR TIMES DAILY, # 120 capsule, 6 Refills, Maintenance, 08/07/22 12:13:00 EST, [facility], 176, cm, 08/07/22 11:37:00 EST, Height, [...] 08/07/22 12:12:00 EST, [facility]/pharmacy #[id number], 30, USE 1 SPRAY(S) INTO EACH NOSTRIL TWICE A DAY, 176, cm,08/07/22 11:37:00 EST, Height, 79.8, kg, 07/31/22 2... Start Date: 08/07/22 Status: Ordered folic acid 1 mg oral tablet 1 mg, 1, tablet, By Mouth, Daily, # 90 tablet, Refills 4, Tot. Refills 4, Maintenance, 10/27/21 10:40:00 EDT, [facility], Partial fill upon patient request if the prescription is for a schedule II opioid drug.... Start Date: 10/27/21 Stop Date: 01/20/23 Status: Ordered furosemide 20 mg oral tablet See Instructions, TAKE 1 TABLET BY MOUTH ONCE A DAY^1R1, # 30 tablet, Refills 2, Maintenance, 08/07/22 12:27:00 EST, Instructions Replace Required Details, Route to Pharmacy Electronically, [facility], 176, cm, 08/07/22 11:37:00 EST, Height, 7... [...] Pharmacy Electronically, [id number], 176, cm, 08/07/22 11:37:00 EST, Height, 79.8, kg, 07/31/22 22:40:00 EST, Dry Weight Start Date: 08/10/22 Stop Date: 11/08/22 Status: Ordered hydrOXYzine hydrochloride 25 mg oral tablet 1 TO 2 TABLETS, By Mouth, Daily at bedtime, PRN NEEDED FOR ANXIETY (VIAL), # 60 tablet, 11 Refills, Maintenance, 03/13/22 8:38:00 EDT, [facility], 175, cm, [...] Refills, Maintenance, 03/13/22 8:37:00 EDT, [facility], 175, cm, 01/06/22 10:34:00 EDT, Height, 78.3, kg, 12/26/21 19:05:00 EDT, Dry Weight Start Date: 03/13/22 Status: Ordered Melatonin 3 mg oral tablet 1 tablet, By Mouth, Daily at bedtime, PRN NEEDED FOR INSOMNIA (PACKAGE IN TRAY)^1R4, # 60 tablet, 5 Refills, Maintenance, 06/12/22 18:11:00 EST, [facility], 60, TAKE 1 TABLET BY [...] to Pharmacy Electronically, [facility]/pharmacy #[id number], Partial fill upon patient requestif the prescription is for a schedule II opioid remedios... Start Date: 08/07/22 Stop Date: 02/03/23 Status: Ordered Potassium Chloride (Eqv-K-Tab) 20 mEq oral tablet, extended release 2 tablet, By Mouth, Daily, # 180 tablet, 1 Refills, Maintenance, 05/13/22 9:48:00 EST, [facility], 175, cm, 04/09/22 15:34:00 EDT, Height, 78.3, kg, 12/26/21 19:05:00 EDT, Dry Weight Start Date: 05/13/22 Stop Date: 11/09/22 Status: Ordered pyridoxine 50 mg oral tablet 50 mg, 1, tablet, By Mouth, Daily, for 90 days, # 90 tablet, Refills 4, Tot. Refills 4, Acute 01/15/23 11:42:00 EDT, 10/22/21 11:42:00 EDT, Route to Pharmacy Electronically, [facility], Partial fill upon patient request if [...] 06/12/22 18:11:00 EST, Route to Pharmacy Electronically, [facility], 179, cm, 06/08/22 7:37:00EST, Height, 84, kg, 06/01/22 12:27:00 EST, Dry Weight Start Date: 06/12/22 Status: Ordered Vitamin B1 100 mg oral tablet 1, tablet, By Mouth, Daily, # 90 tablet, Refills 3, Maintenance, 03/13/22 8:37:00 EDT, Route to Pharmacy Electronically, [facility], 175, cm, 01/06/22 10:34:00 EDT, Height, 78.3, kg, 12/26/2218:05:00 EDT, Dry Weight Start Date: 03/13/22 Status: Ordered Xifaxan 550 mg oral tablet 1 tablet, By Mouth, 2 times a day, ^1R1,1R4., # 60 tablet, 1 Refills, Maintenance, 06/12/22 18:10:00 EST, [facility], 179, cm, 06/08/22 7:37:00 EST, Height, [...] Care Physician Member Role: PCP Address: Address: [address] [place] [address] Adult & Pediatric Medicine [address] Name: Neida Ballard RN Position: [...] Role: Lifetime Consulting Provider Address: Address: [address] [place] [address]- Name: Ge Covarrubias RN Position: [facility] Member Role: Lifetime Consulting Physician Address: Address: [address] [place] [address] [address] [facility] [place] [address]- Name: Darlene Rodrigez RN Position: [facility] RN Member Role: Primary Care Nurse Name: Kawn Mills RN Position: [facility] RN Member Role: Primary Care Nurse Name: Dolores Can RN Position: [facility] RN Member Role: Primary Care Nurse Name: Kim Rendon RN Position: [facility] RN Member Role: Primary Care Nurse Name: Monica Rowell RN Position: [facility] RN Member Role: Primary Care Nurse Care Team Related Persons Name: CAWUMARLEN Address: home [address] [place] [address] Name: MARLEN CABEZAS Address: home [address] [place] [address] Name: NICK CABEZAS Name: GEMA CABEZAS Address: home [address] [place] [address]
--- OUTSIDE RECORDS SUMMARY | 2023-12-15 20:59 | XMS_ITS | Continuity of Care Document ---
Author Organization [facility] Address [address] [place] [address]- Care Team Providers Care Director Of Online Merchandising Name Role Phone Jany Baig DO Primary Care Physician [facility]): 08/08/22 - 09/07/22 [facility] [address] [place] [address]- Allergies, Adverse Reactions, Alerts Substance Reaction Severity [...] (oldterm) 08/02/12 Give n 1Result Comment: [facility]: [id number] 2Result Comment: [04/29/2017] [id number] 3Admin Note: FLUARIX 4Admin Note: 3 RDINJ 5Admin Note: #2 Medications acamprosate 333 mg oral delayed release tablet 1 tablet = 333 mg, By Mouth, 3 times a day, # 90 tablet, 4 Refills, Maintenance, 09/03/22 14:59:00 EDT, EC Tablet, [facility], Partial fill upon patient request if the prescription is for a schedule II opioid drug., 169, cm, 09/03/22 14:21:00... Start Date: 09/03/22 Status: Ordered acetaminophen 500 mg oral tablet 1 tablet, By Mouth, 4 times a day, PRN NEEDED FOR PAIN, MAX 4, PER DAY (VIAL., # 50 tablet, 11 Refills, Maintenance, 03/13/22 8:37:00 EDT, [facility], 175, cm, 01/06/22 10:34:00 EDT, Height, 78.3, kg, 12/26/21 19:05:00 EDT, Dry Weight Start Date: 03/13/22 Status: Ordered amLODIPine 5 mg oral tablet See Instructions, TAKE 1 TABLET BY MOUTH ONCE A DAY^1R1, # 30 tablet, 5 Refills, Maintenance, 05/13/22 16:24:00 EST, [facility], 175, cm, 04/09/22 15:34:00 EDT, Height, 78.3, kg, 12/26/21 19:05:00 EDT, Dry Weight Start Date: 05/13/22 Status: Ordered baclofen 10 mg oral tablet See Instructions, TAKE 1 TABLET BY MOUTH THREE TIMES DAILY, # 90 tablet, Refills 0, Maintenance, 08/07/22 12:26:00 EST, Instructions Replace Required Details, Route to Pharmacy Electronically, [facility], 176, cm, 08/07/22 11:37:00 EST, Height... Start Date: 08/07/22 Status: Ordered Co Q-10 100 mg oral capsule See Instructions, TAKE 1 CAPSULE BY MOUTH FOUR TIMES DAILY, # 120 capsule, 6 Refills, Maintenance, 08/07/22 12:13:00 EST, [facility], 176, cm, 08/07/22 11:37:00 [...] Maintenance, 08/07/22 12:12:00 EST, [facility]/pharmacy #[id number], 30, USE 1 SPRAY(S) INTO EACH NOSTRIL TWICE A DAY, 176, cm,08/07/22 11:37:00 EST, Height, 79.8, kg, 07/31/22 2... Start Date: 08/07/22 Status: Ordered folic acid 1 mg oral tablet 1 mg, 1, tablet, By Mouth, Daily, # 90 tablet, Refills 4, Tot. Refills 4, Maintenance, 10/27/21 10:40:00 EDT, [facility], Partial fill upon patient request if the prescription is for a schedule II opioid drug.... Start Date: 10/27/21 Stop Date: 01/20/23 Status: Ordered furosemide 20 mg oral tablet See Instructions, TAKE 1 TABLET BY MOUTH ONCE A DAY^1R1, # 30 tablet, Refills 2, Maintenance, 08/07/22 12:27:00 EST, Instructions Replace Required Details, Route to Pharmacy Electronically, [facility], 176, cm, 08/07/22 11:37:00 EST, Height, 7... Start Date: 08/07/22 Status: Ordered furosemide 20 mg oral tablet 1, tablet, By Mouth, Daily, R1., # 30 tablet, Refills 5, Tot. Refills 5, Maintenance, 09/03/22 14:50:00 EDT, [facility], 169, cm, 09/03/22 14:21:00 EDT, Height, 69, kg, 08/16/22 1:04:00 EST, Dry Weight Start Date: 09/03/22 Status: Ordered gabapentin 300 mg oral capsule 300 mg, 1, capsule, By Mouth, 2 times a day, note dose/frequency change, # 180 capsule, Refills 4, Tot. Refills 4, Maintenance, 09/03/22 14:55:00 EDT, [facility], 169, cm, 09/03/22 14:21:00 EDT, Height, 69, kg... Start Date: 09/03/22 Stop Date: 11/27/23 Status: Ordered hydrOXYzine hydrochloride 25 mg oral tablet 1 TO 2 TABLETS, By Mouth, Daily at bedtime, PRN NEEDED FOR ANXIETY (VIAL), # 60 tablet, 11 Refills, Maintenance, 03/13/22 8:38:00 EDT, [facility], 175, cm, 01/06/22 10:34:00 EDT, Height, 78.3, kg, 12/26/21 19:05:00 EDT, Dry Weight Start Date: 03/13/22 Status: Ordered lactulose 10 gm/15 ml oral syrup See Instructions, TAKE 30ML BY MOUTH THREE TIMES DAILY NEEDED TO ACHEIVE 3-4 BOWL MOVEMENTS PER DAY, # 3,000 mL, 10 Refills, [facility], 30, 174, cm, 02/27/21 15:17:00 EDT, Height, 81, kg,02/27/21 14:06:00 EDT, Dry Weight Start Date: 07/02/21 Status: Ordered Lidoderm 5% film 1 patch, Topically, Daily, remove patches after 12 hours NSAIDS contraindicated High dose tylenol contraindicated remove patches after 12 hours Nueropathy, # 30 patch, 5 Refills, Maintenance, 09/03/22 16:34:00 EDT, [facility], Partial klaudia... Start Date: 09/03/22 Status: Ordered magnesium oxide 400 mg oral tablet 1 tablet, By Mouth, 2 times a day, # 60 tablet, 11 Refills, Maintenance, 03/13/22 8:37:00 EDT, [facility], 175, cm, 01/06/22 10:34:00 EDT, Height, 78.3, kg, 12/26/21 19:05:00 EDT, Dry Weight Start Date: 03/13/22 Status: Ordered Melatonin 3 mg oral tablet 1 tablet, By Mouth, Daily at bedtime, PRN NEEDED FOR INSOMNIA (PACKAGE IN TRAY)^1R4, # 60 tablet, 5 Refills, Maintenance, 06/12/22 18:11:00 EST, [facility], 60, TAKE 1 TABLET [...] 09/03/22 14:53:00 EDT, Route to Pharmacy Electronically, [facility], Partial fill upon patient request if the prescription is for a schedule II opioid drug... Start Date: 09/03/22 Stop Date: 03/02/23 Status: Ordered pyridoxine 50 mg oral tablet 50 mg, 1, tablet, By Mouth, Daily, for 90 days, # 90 tablet, Refills 4, Tot. Refills 4, Acute 01/15/23 11:42:00 EDT, 10/22/21 11:42:00 EDT, Route to Pharmacy Electronically, [facility], Partial fill upon patient request if [...] Refills, 08/07/22 12:27:00 EST, [facility]/pharmacy #[id number], 28, 1tablet By Mouth Daily, 176, cm, 08/07/22 11:37:00 EST, Height, 79.8, kg, 07/31/22 22:40:00 EST, DryWeight Start Date: 08/07/22 Status: Ordered traZODone 50 mg oral tablet 2 tablets, By Mouth, Daily at bedtime, # 60 each, Refills 5, Tot. Refills 5, Maintenance, 09/03/22 17:13:00 EDT, Route to Pharmacy Electronically, [facility], 169, cm, 09/03/22 14:21:00 EDT, Height, 69, kg, 08/16/22 1:04:00 EST, Dry Weight Start Date: 09/03/22 Status: Ordered Vitamin B1 100 mg oral tablet 1, tablet, By Mouth, Daily, # 90 tablet, Refills 3, Maintenance, 03/13/22 8:37:00 EDT, Route to Pharmacy Electronically, [facility], 175, cm, 01/06/22 10:34:00 EDT, Height, 78.3, kg, 12/26/2218:05:00 EDT, Dry Weight Start Date: 03/13/22 Status: Ordered Xifaxan 550 mg oral tablet 1 tablet, By Mouth, 2 times a day, ^1R1,1R4., # 60 tablet, 1 Refills, Maintenance, 06/12/22 18:10:00 EST, [facility], 179, cm, 06/08/22 7:37:00 EST, Height, [...] team information Care Team Personnel Name: Darrian LOUIEAlexandra Position: [facility] ED RN W/OE and Tasks Member Role: Primary Care Nurse Name: Garima Manzano RN Position: [facility] RN Member Role: Primary Care Nurse Name: Malgorzata Marinelli RN Position: [facility] RN Member Role: Primary Care Nurse Name: Joyce Roach RN Position: [facility] RN Member Role: Primary Care Nurse Name: Mary Suazo RN Position: [facility] RN Member Role: Primary Care Nurse Name: Andres Pressley RN Position: [facility] RN Member Role: Primary Care Nurse Name: Jany Baig DO Position: [facility] Primary Care Physician Member Role: PCP Address: Address: [address] [place] [address] Adult [facility] [place] [address]- Name: Neida Ballard RN Position: [facility] RN Member Role: Primary Care Nurse Name: Kaye Payne RN Position: [facility] RN Member Role: Primary Care Nurse Name: Garima Hutchinson Position: [facility] RN Member Role: Primary Care Nurse Name: Malgorzata Austin Position: [facility] RN Member Role: Primary Care Nurse Name: Torrie Hernandez RN Position: [facility] OB RN Member Role: Primary Care Nurse Name: Gretchen Knutson RN Position: [facility] SN RN Member Role: Primary Care Nurse Name: Aislinn Mckee RN Position: [facility] RN Member Role: Primary Care Nurse Name: Ashley Mcelroy Position: [facility] RN Member Role: Primary Care Nurse Name: Cody Garcia Position: [facility] Associate Professional Member Role: Lifetime Consulting Provider Address: Address: [address] [place] [address]- Name: Ge Covarrubias RN Position: [facility] RN Member Role: Primary Care Nurse Name: Orin Elmore RN Position: [facility] ED RN W/OE and Tasks Member Role: Primary Care Nurse Name: Allegra Liu RN Position: [facility] PCO RN Member Role: Primary Care Nurse Name: Shayan Pandya MD Position: [facility] Renal MD Member Role: Lifetime Consulting Physician Address: Address: [address] [place] [address] [address] [facility], [place] [address]- Name: Darlene Rodrigez RN Position: S RN Member Role: Primary Care Nurse Name: Kwan Mills RN Position: S RN Member Role: Primary Care Nurse Name: Dolores Can RN Position: S RN Member Role: Primary Care Nurse Name: Kim Rendon RN Position: S RN Member Role: Primary Care Nurse Name: Monica Rowell RN Position: [facility] RN Member Role: Primary Care Nurse Care Team Related Persons Name: MARLEN CABEZAS Address: [address] [address] Name: MARLEN CABEZAS Address: [address] Name: NICK CABEZAS Name: GEMA CABEZAS Address: [address] [address]
--- OUTSIDE RECORDS SUMMARY | 2023-12-15 20:59 | XMS_ITS | Continuity of Care Document ---
Author Organization [facility] Address [address] [place] [address]- Care Team Providers Care Sat Instructor Name Role Phone Jany Baig DO Primary Care Physician [facility] 07[facility]22 - 08/07/22 [facility] [address] [place] [address]- Allergies, Adverse Reactions, Alerts Substance Reaction Severity [...] 1Result Comment: [facility]: [id number] 2Result Comment: [04/29/2017] [id number] 3Admin Note: FLUARIX 4Admin Note: 3 RDINJ 5Admin Note: #2 Medications acetaminophen 500 mg oral tablet 1 tablet, By Mouth, 4 times a day, PRN NEEDED FOR PAIN, MAX 4, PER DAY (VIAL., # 50 tablet, 11 Refills, Maintenance, 03/13/22 8:37:00 EDT, [facility], 175, cm, 01/06/22 10:34:00 EDT, Height, 78.3, kg, 12/26/21 19:05:00 EDT, Dry Weight Start Date: 03/13/22 Status: Ordered amLODIPine 5 mg oral tablet See Instructions, TAKE 1 TABLET BY MOUTH ONCE A DAY^1R1, # 30 tablet, 5 Refills, Maintenance, 05/13/22 16:24:00 EST, [facility], 175, cm, 04/09/22 15:34:00 EDT, Height, 78.3, kg, 12/26/21 19:05:00 EDT, Dry Weight Start Date: 05/13/22 Status: Ordered baclofen 10 mg oral tablet See Instructions, TAKE 1 TABLET BY MOUTH THREE TIMES DAILY, # 90 tablet, Refills 0, Maintenance, 08/07/22 12:26:00 EST, Instructions Replace Required Details, Route to Pharmacy Electronically, [facility], 176, cm, 08/07/22 11:37:00 EST, Height... Start Date: 08/07/22 Status: Ordered Co Q-10 100 mg oral capsule See Instructions, TAKE 1 CAPSULE BY MOUTH FOUR TIMES DAILY, # 120 capsule, 6 Refills, Maintenance, 08/07/22 12:13:00 EST, [facility], 176, cm, 08/07/22 11:37:00 [...] Gm, 11 Refills, Maintenance, 08/07/22 12:12:00 EST, [facility]/pharmacy #[id number], 30, USE 1 SPRAY(S) INTO EACH NOSTRIL TWICE A DAY, 176, cm,08/07/22 11:37:00 EST, Height, 79.8, kg, 07/31/22 2... Start Date: 08/07/22 Status: Ordered folic acid 1 mg oral tablet 1 mg, 1, tablet, By Mouth, Daily, # 90 tablet, Refills 4, Tot. Refills 4, Maintenance, 10/27/21 10:40:00 EDT, Route to Pharmacy Electronically, [facility], Partial fill upon patient request if the prescription is for a schedule II opioid drug.... Start Date: 10/27/21 Stop Date: 01/20/23 Status: Ordered furosemide 20 mg oral tablet See Instructions, TAKE 1 TABLET BY MOUTH ONCE A DAY^1R1, # 30 tablet, Refills 2, Maintenance, 08/07/22 12:27:00 EST, Instructions Replace Required Details, Route to Pharmacy Electronically, [facility], 176, cm, 08/07/22 11:37:00 EST, Height, 7... Start Date: 08/07/22 Status: Ordered furosemide 20 mg oral tablet 1, tablet, By Mouth, Daily, R1., # 30 tablet, Refills 5, Tot. Refills 5, Maintenance, 07/18/22 7:52:00 EST, Route to Pharmacy Electronically, [facility], 179, cm, 07/01/22 13:29:00 EST, Height, 84, kg, 06/01/22 12:27:00 EST, Dry Weight Start Date: 07/18/22 Status: Ordered gabapentin 300 mg oral capsule 300 mg, 1, capsule, By Mouth, 3 times a day, # 90 capsule, Refills 4, Tot. Refills 4, Maintenance, 08/07/22 12:12:00 EST, Route to Pharmacy Electronically, [facility]/pharmacy #[id number], Partial fill upon patient request if the prescription is for a schedule II... Start Date: 08/07/22 Stop Date: 01/04/23 Status: Ordered hydrOXYzine hydrochloride 25 mg oral tablet 1 TO 2 TABLETS, By Mouth, Daily at bedtime, PRN NEEDED FOR ANXIETY (VIAL), # 60 tablet, 11 Refills, Maintenance, 03/13/22 8:38:00 EDT, [facility], 175, cm, 01/06/22 10:34:00 EDT, Height, 78.3, kg, 12/26/21 19:05:00 EDT, Dry Weight Start Date: 03/13/22 Status: Ordered lactulose 10 gm/15 ml oral syrup See Instructions, TAKE 30ML BY MOUTH THREE TIMES DAILY NEEDED TO ACHEIVE 3-4 BOWL MOVEMENTS PER DAY, # 3,000 mL, 10 Refills, [facility], 30, TAKE 30ML BY MOUTH THREE TIMES DAILY NEEDED TO ACHEIVE 3-4 BOWL MOVEMENTS PER DAY, 174, cm, 02/12... Start Date: 07/02/21 Status: Ordered Lidoderm 5% film 1 patch, Topically, Daily, remove patches after 12 hours NSAIDS contraindicated High dose tylenol contraindicated remove patches after 12 hours Rib fracture, # 30 patch, 5 Refills, Maintenance, 08/07/22 12:09:00 EST, [facility]/pharmacy #[id number], Partial f... Start Date: 08/07/22 Status: Ordered magnesium oxide 400 mg oral tablet 1 tablet, By Mouth, 2 times a day, # 60 tablet, 11 Refills, Maintenance, 03/13/22 8:37:00 EDT, [facility], 175, cm, 01/06/22 10:34:00 EDT, Height, 78.3, kg, 12/26/21 19:05:00 EDT, Dry Weight Start Date: 03/13/22 Status: Ordered Melatonin 3 mg oral tablet 1 tablet, By Mouth, Daily at bedtime, PRN NEEDED FOR INSOMNIA (PACKAGE IN TRAY)^1R4, # 60 tablet, 5 Refills, Maintenance, 06/12/22 18:11:00 EST, [facility], 60, TAKE 1 TABLET [...] 08/07/22 12:14:00 EST, Route to Pharmacy Electronically, [facility]/pharmacy #[id number], Partial fill upon patient requestif the prescription is for a schedule II opioid remedios... Start Date: 08/07/22 Stop Date: 02/03/23 Status: Ordered Potassium Chloride (Eqv-K-Tab) 20 mEq oral tablet, extended release 2 tablet, By Mouth, Daily, # 180 tablet, 1 Refills, Maintenance, 05/13/22 9:48:00 EST, [facility], 175, cm, 04/09/22 15:34:00 EDT, Height, 78.3, kg, 12/26/21 19:05:00 EDT, Dry Weight Start Date: 05/13/22 Stop Date: 11/09/22 Status: Ordered pyridoxine 50 mg oral tablet 50 mg, 1, tablet, By Mouth, Daily, for 90 days, # 90 tablet, Refills 4, Tot. Refills 4, Acute 01/15/23 11:42:00 EDT, 10/22/21 11:42:00 EDT, Route to Pharmacy Electronically, [facility], Partial fill upon patient request if [...] 90 tablet, 9 Refills, 08/07/22 12:27:00 EST, [facility]/pharmacy #[id number], 28, 1tablet By Mouth Daily, 176, cm, 08/07/22 11:37:00 EST, Height, 79.8, kg, 07/31/22 22:40:00 EST, DryWeight Start Date: 08/07/22 Status: Ordered tranexamic acid 650 mg oral tablet 1 tablet = 650 mg, By Mouth, Daily, # 19 tablet, 0 Refills, Maintenance, 08/01/22 16:17:00 EST, Tablet, [facility]/pharmacy #[id number], Partial fill upon patient request if the prescription is for a schedule II opioid drug., 176, cm, 08/01/22 15:52:00 EST, Height... Start Date: 08/01/22 Stop Date: 08/20/22 Status: Ordered traZODone 50 mg oral tablet 2 TO 3 TABLETS, By Mouth, Daily at bedtime, #28 VIAL)^2R4., # 90 tablet, Refills 5, Maintenance, 06/12/22 18:11:00 EST, Route to Pharmacy Electronically, [facility], 179, cm, 06/08/22 7:37:00EST, Height, 84, kg, 06/01/22 12:27:00 EST, Dry Weight Start Date: 06/12/22 Status: Ordered Vitamin B1 100 mg oral tablet 1, tablet, By Mouth, Daily, # 90 tablet, Refills 3, Maintenance, 03/13/22 8:37:00 EDT, Route to Pharmacy Electronically, [facility], 175, cm, 01/06/22 10:34:00 EDT, Height, 78.3, kg, 12/26/2218:05:00 EDT, Dry Weight Start Date: 03/13/22 Status: Ordered Xifaxan 550 mg oral tablet 1 tablet, By Mouth, 2 times a day, ^1R1,1R4., # 60 tablet, 1 Refills, Maintenance, 06/12/22 18:10:00 EST, [facility], 179, cm, 06/08/22 7:37:00 EST, Height, [...] Care Physician Member Role: PCP Address: Address: [address] [place] [address] Adult [facility] [place] [address]- Name: Neida Ballard [facility] Member Role: Lifetime Consulting Provider Address: Address: [address] [place] [address]- Name: Ge Covarrubias RN Position: [facility] RN Member Role: Primary Care Nurse Name: Orin Elmore RN Position: [facility] ED RN W/OE and Tasks Member Role: Primary Care Nurse Name: Noe RN, Allegra Elliott Position: [facility] PCO RN Member Role: Primary Care Nurse Name: Shayan Pandya MD Position: [facility] Renal MD Member Role: Lifetime Consulting Physician Address: Address: [address] [facility] [facility] [address] [facility], [place] [address]- Name: Darlene Rodrigez RN [facility] [...] Persons Name: MARLEN CABEZAS Address: home [address] [place] [id number] Name: MARLEN CABEZAS Address: [address] [place] [address] Name: NICK CABEZAS Name: GEMA CABEZAS Address: [address] [place] [address]
--- OUTSIDE RECORDS SUMMARY | 2023-12-15 20:59 | XMS_ITS | Continuity of Care Document ---
Author Organization [facility] Address [address] [place] [address]- Care Team Providers Care Autocad Detailer Name Role Phone Jany Baig DO Primary Care Physician Encounter [facility] Date(s): 07/05/23 - 08/04/23 [facility] [address] [place], [place] [address] Allergies, Adverse Reactions, Alerts Substance [...] [facility]: [id number] 2Result Comment: [04/29/2017] [id number] 3Admin Note: FLUARIX 4Admin Note: 3 RDINJ [...] tablet, 2 Refills, Maintenance, 07/28/23 11:06:00 EST, [facility], 175, cm, 07/28/23 9:11:00 EST, Height, 61.3, kg, 07/12/23 23:27:00 EST, Dry Weight Start Date: 07/28/23 Status: Ordered amLODIPine 5 mg oral tablet 1 tablet, By Mouth, Daily, ^1R1., # 30 tablet, 2 Refills, Maintenance, 06/02/23 8:00:00 EST, [facility] [...] 07/28/23 11:10:00 EST, Route to Pharmacy Electronically, [facility] [...] 08/05/23 19:16:00 EST, 07/29/23 19:16:00 EST, Tablet, [facility], Partial fill upon patient request if [...] Gm, 12 Refills, Maintenance, 07/28/23 11:06:00 EST, [facility], 28, APPLY TOPICALLY TO AFFECTED AREA(S) [...] 08/05/23 19:21:00 EST, 07/29/23 19:21:00 EST, Capsule, [facility], Partial fill upon patient requestif the [...] Gm, 1 Refills, Maintenance, 07/28/23 12:07:00 EST, [facility], 30, USE 1 SPRAY(S) INTO EACH [...] 07/28/23 12:08:00 EST, Route to Pharmacy Electronically, [facility], 175, cm, 07/28/23 9:11:00 EST, Height, 61.3, kg, 07/12/23 23:27:00 EST, Dry Weight Start Date: 07/28/23 Status: Ordered furosemide 20 mg oral tablet 20 mg, 1, tablet, By Mouth, Every other day, # 30 tablet, Refills 1, Tot. Refills 1, Maintenance, 07/28/23 12:08:00 EST, Route to Pharmacy Electronically, [facility], Partial fill upon patient request if the prescription is for a schedule II... Start Date: 07/28/23 Status: Ordered gabapentin 300 mg oral capsule 300 mg, 1, capsule, By Mouth, Daily at bedtime, note dose/frequency change, # 30 capsule, Refills 1, Tot. Refills 1, Maintenance, 07/28/23 12:09:00 EST, Route to Pharmacy Electronically, [facility], 175, cm, 07/28/23 9:11:00 EST, Height, [...] tablet, 3 Refills, Maintenance, 07/28/23 12:10:00 EST, [facility], 175, cm, 07/28/23 9:11:00 EST, Height, 61.3, kg,07/12/23 23:27:00 EST, Dry Weight Start Date: 07/28/23 Status: Ordered lactulose 10 gm/15 ml oral syrup 30 mL = 20 Gm, By Mouth, 3 times a day, for 30 days, # 2,700 mL, 2 Refills, Acute 10/26/23 12:13:00EDT, 07/28/23 12:13:00 EST, Syrup, [facility], Partial fill upon patient request if [...] 60 tablet, 11 Refills, Maintenance,07/28/23 12:09:00 EST, [facility], 175, cm, 07/28/23 9:11:00 EST, Height, [...] tablet, 5 Refills, Maintenance, 07/28/23 12:09:00 EST, [facility], 60, 1 tablet By Mouth Daily [...] 07/28/23 12:11:00 EST, Route to Pharmacy Electronically, [facility], 175, cm, 07/28/23 9:11:00EST, Height, [...] 07/28/23 12:12:00 EST, Route to Pharmacy Electronically, [facility], 175, cm, 07/28/23 9:11:00 EST, Height, [...] 07/28/23 12:12:00 EST, Route to Pharmacy Electronically, [facility], 175, cm, 07/28/23 9:11:00 EST, Height, [...] 07/28/23 12:12:00 EST, Route to Pharmacy Electronically, [facility], 175, cm, 07/28/23 9:11:00 EST, Height, 61.3, kg, 07/12/23 23:27:00 EST, Dry Weight Start Date: 07/28/23 Status: Ordered Vitamin B6 50 mg oral tablet 1, tablet, By Mouth, Daily, R1., # 90 tablet, Refills 4, Maintenance, 11/16/22 13:39:00 EDT, Route to Pharmacy Electronically, [facility], 175, cm, 11/13/22 10:42:00 EDT, Height, 88.9, kg, 10/21/22 20:41:00 EDT, Dry Weight Start Date: 11/16/22 Status: Ordered Vitamin B6 50 mg oral tablet 1, tablet, By Mouth, Daily, R1., # 90 tablet, Refills 4, Tot. Refills 4, Maintenance, 07/28/23 12:11:00 EST, Route to Pharmacy Electronically, [facility], 175, cm, 07/28/23 9:11:00 EST, Height, [...] each, 1 Refills, Maintenance, 07/28/23 14:33:00 EST, [facility], 175, cm, 07/28/23 9:11:00 EST, Height, [...] team information Care Team Personnel Name: Shira Galidno RN Position: [facility] RN Member Role: Primary Care Nurse Name: Lisa Nunez RN Position: S RN Member Role: Primary Care Nurse Name: Alexandra Colmenares RN Position: [facility] ED RN W/OE and Tasks Member Role: Primary Care Nurse Name: Garima Manzano RN Position: [facility] RN Member Role: Primary Care Nurse Name: Malgorzata Marinelli RN Position: S RN Member Role: Primary Care Nurse Name: Joyce Roach RN Position: [facility] ED RN W/OE and Tasks Member Role: Primary Care Nurse Name: Mary Suazo RN Position: [facility] RN Member Role: Primary Care Nurse Name: Lucina Peralta RN Position: [facility] RN Member Role: Primary Care Nurse Name: Maria Esther Craig LPN Position: [facility] RN Member Role: Primary Care Nurse Name: Andres Pressley RN Position: [facility] ED RN W/OE and Tasks Member Role: Primary Care Nurse Name: Jany Baig DO Position: [facility] Physician - Primary Care Member Role: PCP Address: Address: [address] [place] [address] Adult & Pediatric Medicine [place], [place] [address] Name: Kaye Payne RN Position: [facility] RN Member Role: Primary Care Nurse Name: Garima Curry RN Position: S RN Member Role: Primary Care Nurse Name: Malgorzata Austin Position: S RN Member Role: Primary Care Nurse Name: Ibeth Adams RN Position: [facility] RN Member Role: Primary Care Nurse Name: Torrie Hernandez RN Position: [facility] OB RN Member Role: Primary Care Nurse Name: Gretchen Knutson RN Position: [facility] SN RN Member Role: Primary Care Nurse Name: Aislinn Mckee RN Position: [facility] RN Member Role: Primary Care Nurse Name: Ashley Mcelroy Position: [facility] RN Member Role: Primary Care Nurse Name: Ashok Kevin RN Position: [facility] RN Member Role: Primary Care Nurse Name: Cody Garcia Position: [facility] Associate Professional Member Role: Lifetime Consulting Provider Address: Address: [address] [place] [address] Name: Paige Nascimento RN Position: [facility] RN Member Role: Primary Care Nurse Name: Ge Covarrubias RN Position: [facility] RN Member Role: Primary Care Nurse Name: Orin Elmore RN Position: [facility] ED RN W/OE and Tasks Member Role: Primary Care Nurse Name: Allegra Liu RN Position: [facility] AMB Nurse Member Role: Primary Care Nurse Name: Shayan Pandya MD Position: [facility] Renal MD Member Role: Lifetime Consulting Physician Address: Address: [address] [place] [address] [address] [facility], [address] Name: Kimberley Pittman RN Position: [facility] RN Member Role: Primary Care Nurse Name: Darlene Rodrigez RN Position: [facility] RN Member Role: Primary Care Nurse Name: Dixie Duke RN Position: [facility] RN Member Role: Primary Care Nurse Name: Kwan Mills RN Position: [facility] ED RN W/OE and Tasks Member Role: Primary Care Nurse Name: Ingrid Verdugo RN Position: [facility] RN Member Role: Primary Care Nurse Name: Monica Rowell RN Position: [facility] RN Member Role: Primary Care Nurse Name: Jimi Fitzpatrick RN Position: [facility] RN Member Role: Primary Care Nurse Care Team Related Persons Name: AMRLEN CABEZAS Address: home [address] [place] [id number] Name: MARLEN CABEZAS Address: home [address] [place] [id number] Name: NICK CABEZAS Name: GEMA CABEZAS Address: home [address] [place] [address] Name: ELTON CHENG Address: home [address] [place] [address]
--- OUTSIDE RECORDS SUMMARY | 2023-12-15 20:59 | XMS_ITS | Continuity of Care Document ---
Author Organization [facility] Address [address] [place] [address]- Care Team Providers Care Ebd Teacher Name Role Phone Jany Baig DO Primary Care Physician Encounter [facility] Date(s): 07/08/22 - 08/12/22 [facility] [address] [place], [place] [address] Attending Physician: Anna WILSON, Christine [...] 1Result Comment: [facility]: [id number] 2Result Comment: [04/29/2017] [id number] 3Admin Note: FLUARIX 4Admin Note: 3 RDINJ 5Admin Note: #2 Medications acetaminophen 500 mg oral tablet 1 tablet, By Mouth, 4 times a day, PRN NEEDED FOR PAIN, MAX 4, PER DAY (VIAL., # 50 tablet, 11 Refills, Maintenance, 03/13/22 8:37:00 EDT, [facility], 175, cm, 01/06/22 10:34:00 EDT, Height, 78.3, kg, 12/26/21 19:05:00 EDT, Dry Weight Start Date: 03/13/22 Status: Ordered amLODIPine 5 mg oral tablet See Instructions, TAKE 1 TABLET BY MOUTH ONCE A DAY^1R1, # 30 tablet, 5 Refills, Maintenance, 05/13/22 16:24:00 EST, [facility], 175, cm, 04/09/22 15:34:00 EDT, Height, 78.3, kg, 12/26/21 19:05:00 EDT, Dry Weight Start Date: 05/13/22 Status: Ordered baclofen 10 mg oral tablet See Instructions, TAKE 1 TABLET BY MOUTH THREE TIMES DAILY, # 90 tablet, Refills 0, Maintenance, 08/07/22 12:26:00 EST, Instructions Replace Required Details, Route to Pharmacy Electronically, [facility], 176, cm, 08/07/22 11:37:00 EST, Height... Start Date: 08/07/22 Status: Ordered Co Q-10 100 mg oral capsule See Instructions, TAKE 1 CAPSULE BY MOUTH FOUR TIMES DAILY, # 120 capsule, 6 Refills, Maintenance, 08/07/22 12:13:00 EST, [facility], 176, cm, 08/07/22 11:37:00 EST, Height, [...] Gm, 11 Refills, Maintenance, 08/07/22 12:12:00 EST, [facility]/pharmacy #[id number], 30, USE 1 SPRAY(S) INTO EACH NOSTRIL TWICE A DAY, 176, cm,08/07/22 11:37:00 EST, Height, 79.8, kg, 07/31/22 2... Start Date: 08/07/22 Status: Ordered folic acid 1 mg oral tablet 1 mg, 1, tablet, By Mouth, Daily, # 90 tablet, Refills 4, Tot. Refills 4, Maintenance, 10/27/21 10:40:00 EDT, Route to Pharmacy Electronically, [facility], Partial fill upon patient request if the prescription is for a schedule II opioid drug.... Start Date: 10/27/21 Stop Date: 01/20/23 Status: Ordered furosemide 20 mg oral tablet See Instructions, TAKE 1 TABLET BY MOUTH ONCE A DAY^1R1, # 30 tablet, Refills 2, Maintenance, 08/07/22 12:27:00 EST, Instructions Replace Required Details, [facility], cm, 08/07/22 11:37:00 EST, Height, 7... Start Date: 08/07/22 Status: Ordered furosemide 20 mg oral tablet 1, tablet, By Mouth, Daily, R1., # 30 tablet, Refills 5, Tot. Refills 5, Maintenance, 08/10/22 16:49:00 EST, Route to Pharmacy Electronically, [facility]/pharmacy #[id number], 176, cm, 08/07/22 11:37:00 EST, Height, 79.8, kg, 07/31/22 22:40:00 EST, Dry Weight Start Date: 08/10/22 Status: Ordered gabapentin 300 mg oral capsule 2, capsule, By Mouth, Daily at bedtime, # 180 capsule, Refills 4, Maintenance, 08/10/22 16:53:00 EST, Route to Pharmacy Electronically, [id number], 176, cm, 08/07/22 11:37:00 EST, Height, 79.8, kg, 07/31/22 22:40:00 EST, Dry Weight Start Date: 08/10/22 Stop Date: 11/08/22 Status: Ordered hydrOXYzine hydrochloride 25 mg oral tablet 1 TO 2 TABLETS, By Mouth, Daily at bedtime, PRN NEEDED FOR ANXIETY (VIAL), # 60 tablet, 11 Refills, Maintenance, 03/13/22 8:38:00 EDT, [facility], 175, cm, 01/06/22 10:34:00 EDT, Height, 78.3, kg, 12/26/21 19:05:00 EDT, Dry Weight Start Date: 03/13/22 Status: Ordered lactulose 10 gm/15 ml oral syrup See Instructions, TAKE 30ML BY MOUTH THREE TIMES DAILY NEEDED TO ACHEIVE 3-4 BOWL MOVEMENTS PER DAY, # 3,000 mL, 10 Refills, [facility], 30, TAKE 30ML BY MOUTH THREE TIMES DAILY NEEDED TO ACHEIVE 3-4 BOWL MOVEMENTS PER DAY, 174, cm, 09/1... Start Date: 07/02/21 Status: Ordered Lidoderm 5% film 1 patch, Topically, Daily, remove patches after 12 hours NSAIDS contraindicated High dose tylenol contraindicated remove patches after 12 hours Rib fracture, # 30 patch, 5 Refills, Maintenance, 08/07/22 12:09:00 EST[id number] f... Start Date: 08/07/22 Status: Ordered magnesium oxide 400 mg oral tablet 1 tablet, By Mouth, 2 times a day, # 60 tablet, 11 Refills, Maintenance, 03/13/22 8:37:00 EDT, [facility], 175, cm, 01/06/22 10:34:00 EDT, Height, [...] 08/07/22 12:14:00 EST, Route to Pharmacy Electronically, [facility]/pharmacy #[id number], Partial fill upon patient requestif the prescription is for a schedule II opioid remedios... Start Date: 08/07/22 Stop Date: 02/03/23 Status: Ordered Potassium Chloride (Eqv-K-Tab) 20 mEq oral tablet, extended release 2 tablet, By Mouth, Daily, # 180 tablet, 1 Refills, Maintenance, 05/13/22 9:48:00 EST, [facility], 175, cm, 04/09/22 15:34:00 EDT, Height, 78.3, kg, 12/26/21 19:05:00 EDT, Dry Weight Start Date: 05/13/22 Stop Date: 11/09/22 Status: Ordered pyridoxine 50 mg oral tablet 50 mg, 1, tablet, By Mouth, Daily, for 90 days, # 90 tablet, Refills 4, Tot. Refills 4, Acute 01/15/23 11:42:00 EDT, 10/22/21 11:42:00 EDT, Route to Pharmacy Electronically, [facility], Partial fill upon patient request if [...] 90 tablet, 9 Refills, 08/07/22 12:27:00 EST, [facility]/pharmacy #[id number], 28, 1tablet By Mouth Daily, 176, cm, 08/07/22 11:37:00 EST, Height, 79.8, kg, 07/31/22 22:40:00 EST, DryWeight Start Date: 08/07/22 Status: Ordered tranexamic acid 650 mg oral tablet 1 tablet = 650 mg, By Mouth, Daily, # 19 tablet, 0 Refills, Maintenance, 08/01/22 16:17:00 EST, Tablet, [facility]/pharmacy #[id number], Partial fill upon patient request if the prescription is for a schedule II opioid drug., 176, cm, 08/01/22 15:52:00 EST, Height... Start Date: 08/01/22 Stop Date: 08/20/22 Status: Ordered traZODone 50 mg oral tablet 2 TO 3 TABLETS, By Mouth, Daily at bedtime, #28 VIAL)^2R4., # 90 tablet, Refills 5, Maintenance, 06/12/22 18:11:00 EST, Route to Pharmacy Electronically, [facility], 179, cm, 06/08/22 7:37:00EST, Height, 84, kg, 06/01/22 12:27:00 EST, Dry Weight Start Date: 06/12/22 Status: Ordered Vitamin B1 100 mg oral tablet 1, tablet, By Mouth, Daily, # 90 tablet, Refills 3, Maintenance, 03/13/22 8:37:00 EDT, Route to Pharmacy Electronically, [facility], 175, cm, 01/06/22 10:34:00 EDT, Height, 78.3, kg, 12/26/2218:05:00 EDT, Dry Weight Start Date: 03/13/22 Status: Ordered Xifaxan 550 mg oral tablet 1 tablet, By Mouth, 2 times a day, ^1R1,1R4., # 60 tablet, 1 Refills, Maintenance, 06/12/22 18:10:00 EST, [facility], 179, cm, 06/08/22 7:37:00 EST, Height, [...] Team Personnel Name: Alexandra Colmenares RN Position: [facility] ED RN W/OE and Tasks Member Role: Primary Care Nurse Name: Garima Manzano RN Position: [facility] RN Member Role: Primary Care Nurse Name: Malgorzata Marinelli RN Position: [facility] RN Member Role: Primary Care Nurse Name: Joyce Roach RN Position: [facility] RN Member Role: Primary Care Nurse Name: Mary Suazo RN Position: [facility] RN Member Role: Primary Care Nurse Name: Danyel Davis RN Position: [facility] RN Member Role: Primary Care Nurse Name: Andres Pressley RN Position: [facility] RN Member Role: Primary Care Nurse Name: Jany Baig DO Position: [facility] Primary Care Physician Member Role: PCP Address: Address: [address] [place] [address] [facility] [address] Name: Neida Ballard RN Position: [facility] RN Member Role: Primary Care Nurse Name: Kaye Payne RN Position: [facility] RN Member Role: Primary Care Nurse Name: Garima Hutchinson Position: [facility] RN Member Role: Primary Care Nurse Name: Malgorzata Austin Position: [facility] RN Member Role: Primary Care Nurse Name: Torrie Hernandez RN Position: [facility] OB RN Member Role: Primary Care Nurse Name: Gretchen Knutson RN Position: [facility] SN RN Member Role: Primary Care Nurse Name: Aislinn Mckee RN Position: [facility] RN Member Role: Primary Care Nurse Name: Ashley Mcelroy Position: [facility] RN Member Role: Primary Care Nurse Name: Cody Garcia Position: [facility] Associate Professional Member Role: Lifetime Consulting Provider Address: Address: [address] [place], [place] [id number]- Name: Ge Covarrubias RN Position: S RN Member Role: Primary Care Nurse Name: Orin Elmore RN Position: [facility] ED RN W/OE and Tasks Member Role: Primary Care Nurse Name: Allegra Liu RN Position: [facility] PCO RN Member Role: Primary Care Nurse Name: Shayan Pandya MD Position: [facility] Renal MD Member Role: Lifetime Consulting Physician Address: Address: [address] [place] [address] [address] [facility], [place] [address]- Name: Darlene Rodrigez RN Position: [facility] RN Member Role: Primary Care Nurse Name: Kwan Mills RN Position: [facility] RN Member Role: Primary Care Nurse Name: Dolores Can RN Position: S RN Member Role: Primary Care Nurse Name: Kim Rendon RN Position: S RN Member Role: Primary Care Nurse Name: Monica Rowell RN Position: [facility] RN Member Role: Primary Care Nurse Care Team Related Persons Name: MARLEN CABEZAS Address: home [address] [place] [address] Name: MARLEN CABEZAS Address: home [address] [place] [address] Name: NICK CABEZAS Name: GEMA CABEZAS Address: home [address] [place] [address]
--- OUTSIDE RECORDS SUMMARY | 2023-12-15 20:59 | XMS_ITS | Continuity of Care Document ---
Author Organization [facility] Address [address] [place] [address]- Care Team Providers Care Traffic Sign Supervisor Name Role Phone Jany Baig DO Primary Care Physician [facility]): 08/04/23 - 09/03/23 [facility] [address] [place], [place] [address] Allergies, Adverse Reactions, Alerts Substance Reaction [...] Give n 1Result Comment: [facility]: [id number] 2Result Comment: [04/29/2017] [id number] 3Admin Note: FLUARIX 4Admin Note: 3 RDINJ [...] tablet, 2 Refills, Maintenance, 07/28/23 11:06:00 EST, [facility], 175, cm, 07/28/23 9:11:00 EST, Height, 61.3, kg, 07/12/23 23:27:00 EST, Dry Weight Start Date: 07/28/23 Status: Ordered amLODIPine 5 mg oral tablet 1 tablet, By Mouth, Daily, ^1R1., # 30 tablet, 2 Refills, Maintenance, 06/02/23 8:00:00 EST, [facility], 175, cm, 03/22/23 6:50:00 EDT, [...] 11:10:00 EST, Route to Pharmacy Electronically, [facility], Partial fill upon patient request if [...] 12 Refills, Maintenance, 07/28/23 11:06:00 EST, [facility], 28, APPLY TOPICALLY TO AFFECTED AREA(S) [...] 1 Refills, Maintenance, 07/28/23 12:07:00 EST, [facility], 30, USE 1 SPRAY(S) INTO EACH [...] 07/28/23 12:09:00 EST, Route to Pharmacy Electronically, [facility], 175, cm, 07/28/23 9:11:00 EST, Height, [...] 3 Refills, Maintenance, 07/28/23 12:10:00 EST, [facility], 175, cm, 07/28/23 9:11:00 EST, Height, 61.3, kg,07/12/23 23:27:00 EST, Dry Weight Start Date: 07/28/23 Status: Ordered lactulose 10 gm/15 ml oral syrup 30 mL = 20 Gm, By Mouth, 3 times a day, for 30 days, # 2,700 mL, 2 Refills, Acute 10/26/23 12:13:00EDT, 07/28/23 12:13:00 EST, Syrup, [facility], Partial fill upon patient request if [...] tablet, 11 Refills, Maintenance,07/28/23 12:09:00 EST, [facility], 175, cm, 07/28/23 9:11:00 EST, Height, [...] 5 Refills, Maintenance, 07/28/23 12:09:00 EST, [facility], 60, 1 tablet By Mouth Daily [...] 12:11:00 EST, Route to Pharmacy Electronically, [facility], 175, cm, 07/28/23 9:11:00EST, Height, 61.3, [...] 12:12:00 EST, Route to Pharmacy Electronically, [facility], 175, cm, 07/28/23 9:11:00 EST, Height, 61.3, kg, 07/12/23 23:27:00 EST, Dry Weight Start Date: 07/28/23 Status: Ordered spironolactone 25 mg oral tablet 1, tablet, By Mouth, Daily, ^1R2., # 30 tablet, Refills 5, Tot. Refills 5, Maintenance, 04/14/23 12:41:00 EDT, Route to Pharmacy Electronically, [facility], 175, cm, 03/22/23 6:50:00 EDT, Height, 77.5, kg, 03/20/23 11:30:00 EDT, Dry Weight Start Date: 04/14/23 Status: Ordered Tab-A-Jesse oral tablet 1 tablet, By Mouth, Daily, R1., # 30 tablet, 5 Refills, Maintenance, 05/06/23 19:16:00 EST, [facility], 30, TAKE 1 TABLET BY [...] 02/26/23 10:11:00 EDT, Route to Pharmacy Electronically, [facility], 175, cm, 12/03/22 11:50:00 EDT, Height,84, kg, 02/12/23 11:30:00 EDT, Dry Weight Start Date: 02/26/23 Status: Ordered traZODone 50 mg oral tablet 2, tablet, By Mouth, Daily at bedtime, ^2R4., # 60 tablet, Refills 5, Tot. Refills 5, Maintenance, 07/28/23 12:12:00 EST, Route to Pharmacy Electronically, [facility], 175, cm, 07/28/23 9:11:00 EST, Height, [...] 02/09/23 23:18:00 EDT, Route to Pharmacy Electronically, [facility], 175, cm, 12/03/22 11:50:00 EDT, Height, 88.9, kg, 10/21/22 20:41:00 EDT, Dry Weight Start Date: 02/09/23 Status: Ordered Vitamin B1 100 mg oral tablet 1, tablet, By Mouth, Daily, # 90 tablet, Refills 3, Tot. Refills 3, Maintenance, 07/28/23 12:12:00 EST, Route to Pharmacy Electronically, [facility], 175, cm, 07/28/23 9:11:00 EST, Height, 61.3, kg, 07/12/23 23:27:00 EST, Dry Weight Start Date: 07/28/23 Status: Ordered Vitamin B6 50 mg oral tablet 1, tablet, By Mouth, Daily, R1., # 90 tablet, Refills 4, Maintenance, 11/16/22 13:39:00 EDT, Route to Pharmacy Electronically, [facility], 175, cm, 11/13/22 10:42:00 EDT, Height, 88.9, kg, 10/21/22 20:41:00 EDT, Dry Weight Start Date: 11/16/22 Status: Ordered Vitamin B6 50 mg oral tablet 1, tablet, By Mouth, Daily, R1., # 90 tablet, Refills 4, Tot. Refills 4, Maintenance, 07/28/23 12:11:00 EST, Route to Pharmacy Electronically, [facility], 175, cm, 07/28/23 9:11:00 EST, Height, [...] each, 1 Refills, Maintenance, 07/28/23 14:33:00 EST, [facility], 175, cm, 07/28/23 9:11:00 EST, Height, [...] Care Nurse Name: Alexandra Colmenares RN Position: [facility] ED RN W/OE and Tasks Member Role: Primary Care Nurse Name: Garima Manzano RN Position: [facility] RN Member Role: Primary Care Nurse Name: Malgorzata Marinelli RN Position: [facility] RN Member Role: Primary Care Nurse Name: Joyce Roach RN Position: [facility] ED RN W/OE and Tasks Member Role: Primary Care Nurse Name: Mary Suazo RN Position: [facility] RN Member Role: Primary Care Nurse Name: Lucina Peralta RN Position: [facility] RN Member Role: Primary Care Nurse Name: Maria Esther Craig LPN Position: [facility] RN Member Role: Primary Care Nurse Name: Kaye Comer RN Position: [facility] RN Member Role: Primary Care Nurse Name: Andres Pressley RN Position: [facility] ED RN W/OE and Tasks Member Role: Primary Care Nurse Name: Jany Baig DO Position: [facility] Physician - Primary Care Member Role: PCP Address: Address: [address] [place] [address] Adult [place] [address]- Name: Garima Curry RN Position: [facility] RN Member Role: Primary Care Nurse Name: Malgorzata Austin Position: [facility] RN Member Role: Primary Care Nurse Name: Ibeth Adams RN Position: [facility] RN Member Role: Primary Care Nurse Name: Torrie Hernandez RN Position: [facility] OB RN Member Role: Primary Care Nurse Name: Gretchen Knutson RN Position: [facility] SN RN Member Role: Primary Care Nurse Name: Aislinn Mckee RN Position: [facility] RN Member Role: Primary Care Nurse Name: Ashley Mcelroy Position: [facility] RN Member Role: Primary Care Nurse Name: Ashok Kevin RN Position: [facility] RN Member Role: Primary Care Nurse Name: Cody Garcia Position: [facility] Associate Professional Member Role: [employer]etime Consulting Provider Address: Address: [address] [place] [address]- Name: Paige Nascimento RN Position: [facility] RN Member Role: Primary Care Nurse Name: Ge Covarrubias RN Position: [facility] RN Member Role: Primary Care Nurse Name: Orin Elmore RN Position: [facility] ED RN W/OE and Tasks Member Role: Primary Care Nurse Name: Noe RNAllegra Position: [facility] AMB Nurse Member Role: Primary Care Nurse Name: Shayan Pandya MD Position: [facility] Renal MD Member Role: Lifetime Consulting Physician Address: Address: [address] [place] [address] [address] [facility], [place] [address]- Name: Kimberley Pittman RN Position: [facility] RN Member Role: Primary Care Nurse Name: Darlene Rodrigez RN Position: [facility] RN Member Role: Primary Care Nurse Name: Dixie Duke RN Position: S RN Member Role: Primary Care Nurse Name: Kwan Mills RN Position: [facility] ED RN W/OE and Tasks Member Role: Primary Care Nurse Name: Ingrid Verdugo RN Position: [facility] RN Member Role: Primary Care Nurse Name: Monica Rowell RN Position: [facility] RN Member Role: Primary Care Nurse Name: Jimi Fitzpatrick RN Position: [facility] RN Member Role: Primary Care Nurse Care Team Related Persons Name: CAWUMARLEN Address: [address] [place] [address] Name: MARLEN CABEZAS Address: [address] [place] [address] Name: NICK CABEZAS Name: GEMA CABEZAS Address: home [address] [place] [address] Name: ELTON CHENG Address: home [address] [place] [id number]
--- OUTSIDE RECORDS SUMMARY | 2023-12-15 20:59 | XMS_ITS | Continuity of Care Document ---
Author Organization [facility] Address [address] [place] [address]- Care Team Providers Care Um Rn Name Role Phone Jany Baig DO Primary Care Physician [facility]): 04/27/23 - 05/27/23 [facility] [address] [place] [address]- Allergies, Adverse Reactions, Alerts Substance Reaction Severity [...] 1Result Comment: [facility]: [id number] 2Result Comment: [04/29/2017] [id number] 3Admin Note: FLUARIX 4Admin Note: 3 RDINJ 5Admin Note: #2 Medications acamprosate 333 mg oral delayed release tablet 1 tablet = 333 mg, By Mouth, 3 times a day, # 42 tablet, 4 Refills, Maintenance, 11/05/22 11:31:00 EDT, EC Tablet, [facility], Partial fill upon patient request if the prescription is for a schedule II opioid drug., 175, cm, 11/05/22 10:21:00... Start Date: 11/05/22 Stop Date: 01/14/23 Status: Ordered amLODIPine 5 mg oral tablet 1 tablet, By Mouth, Daily, ^1R1., # 30 tablet, 5 Refills, Maintenance, 12/22/22 7:20:00 EDT, [facility], 175, cm, 12/03/22 11:50:00 EDT, Height, 88.9, kg, 10/21/22 20:41:00 EDT, Dry Weight Start Date: 12/22/22 Status: Ordered baclofen 10 mg oral tablet See Instructions, TAKE ONE TABLET BY MOUTH THREE TIMES A DAY ^1R1,1R2,1R4, # 90 tablet, Refills 5, Tot. Refills 5, Maintenance, 01/14/23 17:55:00 EDT, Instructions Replace Required Details, [facility], 175, cm... Start Date: 01/14/23 Status: Ordered calcium (as carbonate)-vitamin D 500 mg-400 intl units oral tablet 1 tablet, By Mouth, Daily, ^1R1., # 28 tablet, 0 Refills, Maintenance, 12/01/22 16:12:00 EDT, [facility], 28, 1 tablet By Mouth Daily,Instr:^1R1., [...] capsule, 6 Refills, Maintenance, 12/03/22 12:13:00 EDT, [facility], 175, cm, 12/03/22 11:50:00 EDT, Height, [...] Gm, 12 Refills, Maintenance, 03/24/23 10:52:00 EDT, [facility], 28, APPLY TOPICALLY TO AFFECTED AREA(S) [...] 03/20/23 16:22:00 EDT, Route to Pharmacy Electronically, [facility], 175, cm, 03/20/23 15:31:00 EDT, Height, 77.5, kg, 03/20/23 11:30:00 EDT, Dry Weight Start Date: 03/20/23 Status: Ordered furosemide 20 mg oral tablet 20 mg, 1, tablet, By Mouth, Every other day, # 30 tablet, Refills 3, Tot. Refills 3, Maintenance, 01/28/23 12:31:00 EDT, Route to Pharmacy Electronically, [facility], Partial fill upon patient request if the prescription is for a schedule II o... Start Date: 01/28/23 Status: Ordered gabapentin 300 mg oral capsule 300 mg, 1, capsule, By Mouth, Daily at bedtime, note dose/frequency change, # 90 capsule, Refills 4, Tot. Refills 4, Maintenance, 11/05/22 11:05:00 EDT, Route to Pharmacy Electronically, [facility], 175, cm, 11/05/22 10:21:00 EDT, Height, 88.9... Start Date: 11/05/22 Stop Date: 01/29/24 Status: Ordered hydrOXYzine hydrochloride 10 mg oral tablet 2 tablet, By Mouth, 2 times a day, PRN NEEDED FOR ANXIETY (VIAL), # 30 tablet, 3 Refills, Maintenance, 04/16/23 16:41:00 EDT, [facility], 175, cm, 03/22/23 6:50:00 EDT, Height, 77.5, kg, 03/20/23 11:30:00 EDT, Dry Weight Start Date: 04/16/23 Status: Ordered lactulose 10 gm/15 ml oral syrup 15 mL, By Mouth, 2 times a day, # 120 mL, 6 Refills, Maintenance, 02/26/23 10:11:00 EDT, [facility], 4, TAKE 15ML BY MOUTH TWO TIMES A DAY, 175, cm, 12/03/22 11:50:00 EDT, Height, 84, kg, 02/12/23 11:30:00 EDT, Dry Weight Start Date: 02/26/23 Status: Ordered magnesium oxide 400 mg oral tablet See Instructions, TAKE 1 TABLET BY MOUTH TWICE A DAY^1R1,1R4, # 60 tablet, 11 Refills, Maintenance,01/28/23 12:31:00 EDT, [facility], 175, cm, 12/03/22 11:50:00 EDT, Height, 88.9, kg, 10/21/22 20:41:00 EDT, Dry Weight Start Date: 01/28/23 Status: Ordered Melatonin 3 mg oral tablet 1 tablet, By Mouth, Daily at bedtime, PRN NEEDED FOR INSOMNIA (PACKAGE IN TRAY)^1R4, # 60 tablet, 5 Refills, Maintenance, 04/16/23 16:41:00 EDT, [facility], 60, TAKE 1 TABLET BY MOUTH [...] 02/26/23 10:11:00 EDT, Route to Pharmacy Electronically, [facility], 175, cm, 12/03/22 11:50:00 EDT, Height, [...] 04/14/23 12:41:00 EDT, Route to Pharmacy Electronically, [facility], 175, cm, 03/22/23 6:50:00 EDT, Height, 77.5, kg, 03/20/23 11:30:00 EDT, Dry Weight Start Date: 04/14/23 Status: Ordered Tab-A-Jesse oral tablet 1 tablet, By Mouth, Daily, R1., # 30 tablet, 5 Refills, Maintenance, 05/06/23 19:16:00 EST, [facility], 30, TAKE 1 TABLET BY MOUTH ONCE A DAY^1R1, 175, cm, 03/22/23 6:50:00 EDT, Height, 77.5,kg, 03/20/23 11:30:00 EDT, Dry Weight Start Date: 05/06/23 Status: Ordered traZODone 50 mg oral tablet 2, tablet, By Mouth, Daily at bedtime, ^2R4., # 60 tablet, Refills 5, Maintenance, 02/26/23 10:11:00 EDT, Route to Pharmacy Electronically, [email or web address], 175, cm, 12/03/22 11:50:00 EDT, [...] 02/09/23 23:18:00 EDT, Route to Pharmacy Electronically, [facility], 175, cm, 12/03/22 11:50:00 EDT, Height, 88.9, kg, 10/21/22 20:41:00 EDT, Dry Weight Start Date: 02/09/23 Status: Ordered Vitamin B6 50 mg oral tablet 1, tablet, By Mouth, Daily, R1., # 90 tablet, Refills 4, Maintenance, 11/16/22 13:39:00 EDT, Route to Pharmacy Electronically, [facility], 175, cm, 11/13/22 10:42:00 EDT, Height, [...] tablet, 3 Refills, Maintenance, 02/26/23 10:11:00 EDT, [facility], 175, cm, 12/03/22 11:50:00 EDT, Height, [...] Name: Joyce Roach RN Position: [facility] ED RN W/OE and Tasks Member Role: Primary Care Nurse Name: Mary Suazo RN Position: [facility] RN Member Role: Primary Care Nurse Name: Andres Pressley RN Position: [facility] ED RN W/OE and Tasks Member Role: Primary Care Nurse Name: Jany Baig DO Position: [facility] Physician - Primary Care Member Role: PCP Address: Address: [address] [place] [address] Adult [place] [address]- Name: Kaye Payne RN Position: [facility] RN Member Role: Primary Care Nurse Name: Garima Hutchinson Position: [facility] RN Member Role: Primary Care Nurse Name: Malgorzata Austin Position: [facility] RN Member Role: Primary Care Nurse Name: Ibeth Adams RN Position: [facility] RN Member Role: [...] Care Nurse Name: Ashok Kevin RN Position: [facility] RN Member Role: Primary Care Nurse Name: Cody Garcia Position: [facility] Associate Professional Member Role: Lifetime Consulting Provider Address: Address: [address] [place] [address]- Name: Paige Nascimento RN Position: [facility] RN Member Role: Primary Care Nurse Name: Ge Covarrubias RN Position: [facility] RN Member Role: Primary Care Nurse Name: Orin Elmore RN Position: [facility] ED RN W/OE and Tasks Member Role: Primary Care Nurse Name: Allegra Liu RN Position: [facility] AMB Nurse Member Role: Primary Care Nurse Name: Shayan Pandya MD Position: [facility] Renal MD Member Role: Lifetime Consulting Physician Address: Address: [address] [place] [address] [address] [facility] [place] [address]- Name: Darlene Rodrigez RN Position: S RN Member Role: Primary Care Nurse Name: Kwan Mills RN Position: S RN Member Role: Primary Care Nurse Name: Dolores Can RN Position: S RN Member Role: Primary Care Nurse Name: Ingrid Verdugo RN Position: S RN Member Role: Primary Care Nurse Name: Monica Rowell RN Position: [facility] RN Member Role: Primary Care Nurse Name: Jimi Fitzpatrick RN Position: [facility] RN Member Role: Primary Care Nurse Care Team Related Persons Name: MARLEN CABEZAS Address: [address] [address] Name: MARLEN CABEZAS Address: home [address] [place] [id number] Name: NICK CABEZAS Name: GEMA CABEZAS Address: home [address] [place] [id number]
--- OUTSIDE RECORDS SUMMARY | 2023-12-15 20:59 | XMS_ITS | Continuity of Care Document ---
Author Organization [facility] Address [address] [place] [address]- Care Team Providers Care Head Of Partner Development Name Role Phone Jany Baig DO Primary Care Physician ( [phone] Encounter [facility] [place] Date(s): 04/16/22 - 05/16/22 [facility] [address] [place] [address]- Allergies, Adverse Reactions, Alerts Substance Reaction Severity [...] 1Result Comment: [facility]: [id number] 2Result Comment: [04/29/2017] [id number] 3Admin Note: FLUARIX 4Admin Note: 3 RDINJ 5Admin Note: #2 Medications acetaminophen 500 mg oral tablet 1 tablet, By Mouth, 4 times a day, PRN NEEDED FOR PAIN, MAX 4, PER DAY (VIAL., # 50 tablet, 11 Refills, Maintenance, 03/13/22 8:37:00 EDT, [facility], 175, cm, 01/06/22 10:34:00 EDT, Height, 78.3, kg, 12/26/21 19:05:00 EDT, Dry Weight Start Date: 03/13/22 Status: Ordered amLODIPine 5 mg oral tablet See Instructions, TAKE 1 TABLET BY MOUTH ONCE A DAY^1R1, # 30 tablet, 5 Refills, Maintenance, 05/13/22 16:24:00 EST, [facility], 175, cm, 04/09/22 15:34:00 EDT, Height, 78.3, kg, 12/26/21 19:05:00 EDT, Dry Weight Start Date: 05/13/22 Status: Ordered Co Q-10 100 mg oral capsule 1 capsule, By Mouth, 4 times a day, # 120 capsule, 5 Refills, Maintenance, 04/09/22 15:55:00 EDT, [facility], 175, cm, 04/09/22 15:34:00 EDT, Height, [...] Gm, 5 Refills, Maintenance, 02/18/22 10:02:00 EDT, [facility], 30, USE 1 SPRAY(S) INTO EACH NOSTRIL TWICE A DAY, 175, cm, 01/06/22 10:34:00 EDT, Height, 78.3, kg, 12/26/21 19... Start Date: 02/18/22 Status: Ordered folic acid 1 mg oral tablet 1 mg, 1, tablet, By Mouth, Daily, # 90 tablet, Refills 4, Tot. Refills 4, Maintenance, 10/27/21 10:40:00 EDT, Route to Pharmacy Electronically, [facility], Partial fill upon patient request if the prescription is for a schedule II opioid drug.... Start Date: 10/27/21 Stop Date: 01/20/23 Status: Ordered furosemide 20 mg oral tablet 1, tablet, By Mouth, Daily, note dose change, # 30 tablet, Refills 2, Tot. Refills 2, Maintenance, 04/09/22 15:53:00 EDT, Route to Pharmacy Electronically, [facility], 175, cm, 04/09/22 15:34:00 EDT, Height, 78.3, kg, 12/26/21 19:05:00 EDT, Start Date: 04/09/22 Stop Date: 07/08/22 Status: Ordered gabapentin 300 mg oral capsule 300 mg, 1, capsule, By Mouth, Daily at bedtime, note dose change, # 90 capsule, Refills 4, Tot. Refills 4, Maintenance, 04/09/22 15:53:00 EDT, Route to Pharmacy Electronically, [facility], Partial fill upon patient request if the prescription... Start Date: 04/09/22 Stop Date: 07/03/23 Status: Ordered hydrOXYzine hydrochloride 25 mg oral tablet 1 TO 2 TABLETS, By Mouth, 3 times a day, PRN NEEDED FOR ANXIETY (VIAL), # 60 tablet, 11 Refills,Maintenance, 03/13/22 8:38:00 EDT, [facility], 175, cm, 01/06/22 10:34:00 EDT, Height, 78.3, kg, 12/26/21 19:05:00 EDT, Dry Weight Start Date: 03/13/22 Status: Ordered lactulose 10 gm/15 ml oral syrup See Instructions, TAKE 30ML BY MOUTH THREE TIMES DAILY NEEDED TO ACHEIVE 3-4 BOWL MOVEMENTS PER DAY, # 3,000 mL, 10 Refills, [facility], 30, TAKE 30ML BY MOUTH THREE TIMES DAILY NEEDED TO ACHEIVE 3-4 BOWL MOVEMENTS PER DAY, 174, cm, 02/12... Start Date: 07/02/21 Status: Ordered lidocaine 0.5% topical gel 1 application, Topically, 3 times a day, # 120 Gm, 0 Refills, Acute 12/30/22 17:23:00 EDT, 12/30/2216:23:00 EDT, Gel, [facility], Partial fill upon patient request if the prescription is fora schedule II opioid drug., 1 application Topically... Start Date: 12/30/21 Stop Date: 12/30/22 Status: Ordered Lidoderm 5% film 1 patch, Topically, Daily, remove patches after 12 hours NSAIDS contraindicated High dose tylenol contraindicated, # 30 patch, 5 Refills, Maintenance, 12/26/21 9:33:00 EDT, [facility], Partial fill upon patient request if the prescription i... Start Date: 12/26/21 Status: Ordered magnesium oxide 400 mg oral tablet 1 tablet, By Mouth, 2 times a day, # 60 tablet, 11 Refills, Maintenance, 03/13/22 8:37:00 EDT, [facility], 175, cm, 01/06/22 10:34:00 EDT, Height, 78.3, kg, 12/26/21 19:05:00 EDT, Dry Weight Start Date: 03/13/22 Status: Ordered Melatonin 3 mg oral tablet 1 tablet, By Mouth, Daily at bedtime, PRN NEEDED FOR INSOMNIA (PACKAGE IN TRAY), # 60 tablet, 5 Refills, Maintenance, 06/02/21 16:17:00 EST, [facility], 28, 1 tablet By Mouth [...] 16:00:00 EDT, Route to Pharmacy Electronically, [facility], Partial fill upon patient requestif the prescription is for a schedule II opioid remedios... Start Date: 04/09/22 Stop Date: 10/06/22 Status: Ordered Potassium Chloride (Eqv-K-Tab) 20 mEq oral tablet, extended release 2 tablet, By Mouth, Daily, # 180 tablet, 1 Refills, Maintenance, 05/13/22 9:48:00 EST, [facility], 175, cm, 04/09/22 15:34:00 EDT, Height, 78.3, kg, 12/26/21 19:05:00 EDT, Dry Weight Start Date: 05/13/22 Stop Date: 11/09/22 Status: Ordered pyridoxine 50 mg oral tablet 50 mg, 1, tablet, By Mouth, Daily, for 90 days, # 90 tablet, Refills 4, Tot. Refills 4, Acute 01/15/23 11:42:00 EDT, 10/22/21 11:42:00 EDT, [facility]ically, [facility] Refills, Maintenance, 03/12/22 17:21:00 EDT, Tablet, [facility] #[id number], Partial fill upon patient request if the prescription is for a schedule II opioid drug., 175, cm,... Start Date: 03/12/22 Status: Ordered Tab-A-Jesse oral tablet 1 tablet, By Mouth, Daily, # 90 tablet, 9 Refills, [facility], 28, TAKE 1 TABLET BY [...] Pharmacy Electronically, [facility], 175,cm, 01/06/22 10:34:00 EDT, Height, 78.3, kg, ... Start Date: 01/30/22 Status: Ordered traZODone 50 mg oral tablet See Instructions, TAKE 2-3 TABLETS BY MOUTH AT BEDTIME (ONE DOSE IN VIAL), # 90 tablet, Refills 5, Tot. Refills 5, Maintenance, 12/26/21 9:21:00 EDT, Instructions Replace Required Details, Route to Pharmacy Electronically, [facility], 170, cm,... Start Date: 12/26/21 Status: Ordered Vitamin B1 100 mg oral tablet 1, tablet, By Mouth, Daily, # 90 tablet, Refills 3, Maintenance, 03/13/22 8:37:00 EDT, Route to Pharmacy Electronically, [facility], 175, cm, 01/06/22 10:34:00 EDT, Height, 78.3, kg, 12/26/2218:05:00 EDT, Dry Weight Start Date: 03/13/22 Status: Ordered Xifaxan 550 mg oral tablet 1 tablet, By Mouth, 2 times a day, # 60 tablet, 1 Refills, Maintenance, 04/10/22 16:49:00 EDT, [facility], 175, cm, 04/09/22 15:34:00 EDT, Height, [...] Care Nurse Name: Jean Nugent RN Position: [facility] RN Member Role: Primary Care Nurse Name: Mary Suazo RN Position: [facility] RN Member Role: Primary Care Nurse Name: Yenny Bernstein Position: [facility] RN Member Role: Primary Care Nurse Name: Jany Baig DO Position: [facility] Primary Care Physician Member Role: PCP Address: Address: [address] [place] [address] [facility] [address] Name: Neida Ballard RN Position: [facility] RN Member Role: Primary Care Nurse Name: Kaye Payne RN [facility]: [facility] [...] Role: Lifetime Consulting Provider Address: Address: [address] [place] [address] Name: Ge Covarrubias RN Position: [facility] RN Member Role: Primary Care Nurse Name: Orin Elmore RN Position: [facility] ED RN W/OE and Tasks Member Role: Primary Care Nurse Name: Allegra Liu RN Position: [facility] PCO RN Member Role: Primary Care Nurse Name: Shayan Pandya MD Position: [facility] Renal MD Member Role: Lifetime Consulting Physician Address: Address: [address] [place] [address] [address] [facility] [address] Name: Darlene Rodrigez RN Position: [facility] RN Member Role: Primary Care Nurse Name: Kwan Mills RN Position: [facility] RN Member Role: Primary Care Nurse Name: Kim Rendon RN Position: S RN Member Role: Primary Care Nurse Name: Monica Rowell RN Position: S RN Member Role: Primary Care Nurse Care Team Related Persons Name: RAULITOMARLEN Address: [place] [address] Name: MARLEN CABEZAS Address: [place] [address] Name: NICK CABEZAS Name: GEMA CABEZAS Address: [place] [address]
--- OUTSIDE RECORDS SUMMARY | 2023-12-15 20:59 | XMS_ITS | Continuity of Care Document ---
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 Role Phone Jany Baig DO Primary Care Physician Encounter [facility] Date(s): 07/05/23 - 08/04/23 [facility] [address] [place], [place] [address] Allergies, Adverse Reactions, Alerts Substance [...] n 1Result Comment: [facility]: [id number] 2Result Comment: [04/29/2017] [id number] 3Admin Note: FLUARIX 4Admin Note: 3 RDINJ [...] tablet, 2 Refills, Maintenance, 07/28/23 11:06:00 EST, [facility], 175, cm, 07/28/23 9:11:00 EST, Height, 61.3, kg, 07/12/23 23:27:00 EST, Dry Weight Start Date: 07/28/23 Status: Ordered amLODIPine 5 mg oral tablet 1 tablet, By Mouth, Daily, ^1R1., # 30 tablet, 2 Refills, Maintenance, 06/02/23 8:00:00 EST, [facility], 175, cm, 03/22/23 6:50:00 EDT, [...] 07/28/23 11:10:00 EST, [facility] to [facility]acy Electronically, [facility] [...] 08/05/23 19:16:00 EST, 07/29/23 19:16:00 EST, Tablet, [facility], Partial fill upon patient request if [...] Gm, 12 Refills, Maintenance, 07/28/23 11:06:00 EST, [facility], 28, APPLY TOPICALLY TO AFFECTED AREA(S) [...] 08/05/23 19:21:00 EST, 07/29/23 19:21:00 EST, Capsule, [facility], Partial fill upon patient requestif the [...] Gm, 1 Refills, Maintenance, 07/28/23 12:07:00 EST, [facility], 30, USE 1 SPRAY(S) INTO EACH [...] 07/28/23 12:08:00 EST, Route to Pharmacy Electronically, [facility], 175, cm, 07/28/23 9:11:00 EST, Height, 61.3, kg, 07/12/23 23:27:00 EST, Dry Weight Start Date: 07/28/23 Status: Ordered furosemide 20 mg oral tablet 20 mg, 1, tablet, By Mouth, Every other day, # 30 tablet, Refills 1, Tot. Refills 1, Maintenance, 07/28/23 12:08:00 EST, Route to Pharmacy Electronically, [facility], Partial fill upon patient request if the prescription is for a schedule II... Start Date: 07/28/23 Status: Ordered gabapentin 300 mg oral capsule 300 mg, 1, capsule, By Mouth, Daily at bedtime, note dose/frequency change, # 30 capsule, Refills 1, Tot. Refills 1, Maintenance, 07/28/23 12:09:00 EST, Route to Pharmacy Electronically, [facility], 175, cm, 07/28/23 9:11:00 EST, Height, [...] tablet, 3 Refills, Maintenance, 07/28/23 12:10:00 EST, [facility], 175, cm, 07/28/23 9:11:00 EST, Height, 61.3, kg,07/12/23 23:27:00 EST, Dry Weight Start Date: 07/28/23 Status: Ordered lactulose 10 gm/15 ml oral syrup 30 mL = 20 Gm, By Mouth, 3 times a day, for 30 days, # 2,700 mL, 2 Refills, Acute 10/26/23 12:13:00EDT, 07/28/23 12:13:00 EST, Syrup, [facility], Partial fill upon patient request if [...] 60 tablet, 11 Refills, Maintenance,07/28/23 12:09:00 EST, [facility], 175, cm, 07/28/23 9:11:00 EST, Height, [...] tablet, 5 Refills, Maintenance, 07/28/23 12:09:00 EST, [facility], 60, 1 tablet By Mouth Daily [...] 07/28/23 12:11:00 EST, Route to Pharmacy Electronically, [facility], 175, cm, 07/28/23 9:11:00EST, Height, 61.3, kg, [...] 07/28/23 12:12:00 EST, Route to Pharmacy Electronically, [facility], 175, cm, 07/28/23 9:11:00 EST, Height, 61.3, kg, 07/12/23 23:27:00 EST, Dry Weight Start Date: 07/28/23 Status: Ordered spironolactone 25 mg oral tablet 1, tablet, By Mouth, Daily, ^1R2., # 30 tablet, Refills 5, Tot. Refills 5, Maintenance, 04/14/23 12:41:00 EDT, Route to Pharmacy Electronically, [facility], 175, cm, 03/22/23 6:50:00 EDT, Height, 77.5, kg, 03/20/23 11:30:00 EDT, Dry Weight Start Date: 04/14/23 Status: Ordered Tab-A-Jesse oral tablet 1 tablet, By Mouth, Daily, R1., # 30 tablet, 5 Refills, Maintenance, 05/06/23 19:16:00 EST, [facility], 30, TAKE 1 TABLET BY [...] Pharmacy Electronically, [facility], 175, cm, 12/03/22 11:50:00 EDT, Height,84, kg, 02/12/23 11:30:00 EDT, Dry Weight Start Date: 02/26/23 Status: Ordered traZODone 50 mg oral tablet 2, tablet, By Mouth, Daily at bedtime, ^2R4., # 60 tablet, Refills 5, Tot. Refills 5, Maintenance, 07/28/23 12:12:00 EST, Route to Pharmacy Electronically, [facility], 175, cm, 07/28/23 9:11:00 EST, Height, [...] Pharmacy Electronically, [facility], 175, cm, 12/03/22 11:50:00 EDT, [...] Pharmacy Electronically, [facility], 175, cm, 11/13/22 10:42:00 EDT, Height, 88.9, kg, 10/21/22 20:41:00 EDT, Dry Weight Start Date: 11/16/22 Status: Ordered Vitamin B6 50 mg oral tablet 1, tablet, By Mouth, Daily, R1., # 90 tablet, Refills 4, Tot. Refills 4, Maintenance, 07/28/23 12:11:00 EST, Route to Pharmacy Electronically, [facility], 175, cm, 07/28/23 9:11:00 EST, Height, [...] each, 1 Refills, Maintenance, 07/28/23 14:33:00 EST, [facility], 175, cm, 07/28/23 9:11:00 EST, Height, [...] Team Personnel Name: Shira Galindo RN Position: [facility] RN Member Role: Primary Care Nurse Name: Lisa Nunez RN Position: S RN Member Role: Primary Care Nurse Name: Alexandra Colmenares RN Position: [facility] ED RN W/OE and Tasks Member Role: Primary Care Nurse Name: Gairma Manzano RN [facility]: [facility] [...] Primary Care Member Role: PCP Address: Address: [address] [place] [address] Adult & Pediatric Medicine [place], [place] [address] Name: Kaye Payne RN Position: [facility] [...] Role: Lifetime Consulting Provider Address: Address: [address] [place] [address] Name: Paige Nascimento RN Position: [facility] [...] Member Role: Lifetime Consulting Physician Address: Address: [address] [place] [address] [address] [facility] [place], [address] Name: Kimberley Pittman RN Position: [facility] [...] Related Persons Name: MARLEN CABEZAS Address: home [address] [place] [id number] Name: RAULITO MARLEN Address: home [address] [place] [id number] Name: NICK CABEZAS Name: GEMA CABEZAS Address: home [address] [place] [address] Name: ELTON CHENG Address: home [address] [place] [address]
--- OUTSIDE RECORDS SUMMARY | 2023-12-15 20:59 | XMS_ITS | Continuity of Care Document ---
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 Role Phone Jany Baig DO Primary Care Physician Encounter [facility] Date(s): 06/26/22 - 07/26/22 [facility] [address] [place] [address]- Allergies, Adverse Reactions, Alerts Substance Reaction Severity [...] 1Result Comment: [facility]: [id number] 2Result Comment: [04/29/2017] [id number] 3Admin Note: FLUARIX 4Admin Note: 3 RDINJ 5Admin Note: #2 Medications acetaminophen 500 mg oral tablet 1 tablet, By Mouth, 4 times a day, PRN NEEDED FOR PAIN, MAX 4, PER DAY (VIAL., # 50 tablet, 11 Refills, Maintenance, 03/13/22 8:37:00 EDT, [facility], 175, cm, 01/06/22 10:34:00 EDT, Height, 78.3, kg, 12/26/21 19:05:00 EDT, Dry Weight Start Date: 03/13/22 Status: Ordered amLODIPine 5 mg oral tablet See Instructions, TAKE 1 TABLET BY MOUTH ONCE A DAY^1R1, # 30 tablet, 5 Refills, Maintenance, 05/13/22 16:24:00 EST, [facility], 175, cm, 04/09/22 15:34:00 EDT, Height, 78.3, kg, 12/26/21 19:05:00 EDT, Dry Weight Start Date: 05/13/22 Status: Ordered Co Q-10 100 mg oral capsule 1 capsule, By Mouth, 4 times a day, # 120 capsule, 5 Refills, Maintenance, 04/09/22 15:55:00 EDT, [facility], 175, cm, 04/09/22 15:34:00 EDT, Height, [...] Gm, 5 Refills, Maintenance, 02/18/22 10:02:00 EDT, [facility], 30, USE 1 SPRAY(S) INTO EACH NOSTRIL TWICE A DAY, 175, cm, 01/06/22 10:34:00 EDT, Height, 78.3, kg, 12/26/21 19... Start Date: 02/18/22 Status: Ordered folic acid 1 mg oral tablet 1 mg, 1, tablet, By Mouth, Daily, # 90 tablet, Refills 4, Tot. Refills 4, Maintenance, 10/27/21 10:40:00 EDT, Route to Pharmacy Electronically, [facility], Partial fill upon patient request if the prescription is for a schedule II opioid drug.... Start Date: 10/27/21 Stop Date: 01/20/23 Status: Ordered furosemide 20 mg oral tablet 1, tablet, By Mouth, Daily, R1., # 30 tablet, Refills 5, Tot. Refills 5, Maintenance, 07/18/22 7:52:00 EST, Route to Pharmacy Electronically, [facility], 179, cm, 07/01/22 13:29:00 EST, Height, [...] 60 tablet, 11 Refills,Maintenance, 03/13/22 8:38:00 EDT, [facility], 175, cm, 01/06/22 10:34:00 EDT, Height, 78.3, kg, 12/26/21 19:05:00 EDT, Dry Weight Start Date: 03/13/22 Status: Ordered lactulose 10 gm/15 ml oral syrup See Instructions, TAKE 30ML BY MOUTH THREE TIMES DAILY NEEDED TO ACHEIVE 3-4 BOWL MOVEMENTS PER DAY, # 3,000 mL, 10 Refills, [facility], 30, TAKE 30ML BY MOUTH THREE TIMES DAILY NEEDED TO ACHEIVE 3-4 BOWL MOVEMENTS PER DAY, 174, cm, 02/12... Start Date: 07/02/21 Status: Ordered lidocaine 0.5% topical gel 1 application, Topically, 3 times a day, # 120 Gm, 0 Refills, Acute 12/30/22 17:23:00 EDT, 12/30/2216:23:00 EDT, Gel, [facility], Partial fill upon patient request if the prescription is fora schedule II opioid drug., 1 application Topically... Start Date: 12/30/21 Stop Date: 12/30/22 Status: Ordered Lidoderm 5% film 1 patch, Topically, Daily, remove patches after 12 hours NSAIDS contraindicated High dose tylenol contraindicated, # 30 patch, 5 Refills, Maintenance, 12/26/21 9:33:00 EDT, [facility], Partial fill upon patient request if the prescription i... Start Date: 12/26/21 Status: Ordered magnesium oxide 400 mg oral tablet 1 tablet, By Mouth, 2 times a day, # 60 tablet, 11 Refills, Maintenance, 03/13/22 8:37:00 EDT, [facility], [facility], cm, 01/06/22 10:34:00 EDT, Height, 78.3, kg, 12/26/21 19:05:00 EDT, Dry Weight Start Date: 03/13/22 Status: Ordered Melatonin 3 mg oral tablet 1 tablet, By Mouth, Daily at bedtime, PRN NEEDED FOR INSOMNIA (PACKAGE IN TRAY)^1R4, # 60 tablet, 5 Refills, Maintenance, 06/12/22 18:11:00 EST, [facility], 60, TAKE 1 TABLET BY MOUTH [...] mL, 0 Refills, Maintenance, 07/24/22 22:07:00 EST, [facility], Partial fill upon patient request if [...] 04/09/22 16:00:00 EDT, Route to Pharmacy Electronically, [facility], Partial fill upon patient requestif the prescription is for a schedule II opioid remedios... Start Date: 04/09/22 Stop Date: 10/06/22 Status: Ordered Potassium Chloride (Eqv-K-Tab) 20 mEq oral tablet, extended release 2 tablet, By Mouth, Daily, # 180 tablet, 1 Refills, Maintenance, 05/13/22 9:48:00 EST, [facility], 175, cm, 04/09/22 15:34:00 EDT, Height, 78.3, kg, 12/26/21 19:05:00 EDT, Dry Weight Start Date: 05/13/22 Stop Date: 11/09/22 Status: Ordered pyridoxine 50 mg oral tablet 50 mg, 1, tablet, By Mouth, Daily, for 90 days, # 90 tablet, Refills 4, Tot. Refills 4, Acute 01/15/23 11:42:00 EDT, 10/22/21 11:42:00 EDT, Route to Pharmacy Electronically, [facility], Partial fill upon patient request if [...] Refills, Maintenance, 03/12/22 17:21:00 EDT, Tablet, [facility] #[id number], Partial fill upon patient request if the prescription is for a schedule II opioid drug., 175, cm,... Start Date: 03/12/22 Status: Ordered Tab-A-Jesse oral tablet 1 tablet, By Mouth, Daily, # 90 tablet, 9 Refills, [facility], 28, TAKE 1 TABLET BY MOUTH ONCE A DAY, 174, cm, 07/14/21 8:16:00 EST, Height, 81, kg, 02/27/21 14:06:00 EDT, Dry Weight Start Date: 07/22/21 Status: Ordered traZODone 50 mg oral tablet 2 TO 3 TABLETS, By Mouth, Daily at bedtime, #28 VIAL)^2R4., # 90 tablet, Refills 5, Maintenance, 06/12/22 18:11:00 EST, Route to Pharmacy Electronically, [facility], 179, cm, 06/08/22 7:37:00EST, [...] tablet, 1 Refills, Maintenance, 06/12/22 18:10:00 EST, [facility], 179, cm, 06/08/22 7:37:00 [...] 4 Confirmed Active Patellar contusion, seen by [facility] spring 2015 Confirmed Active Esophageal varices s/p [...] Name: Joyce Roach RN Position: [facility] RN Member Role: Primary Care Nurse Name: Mary Suazo RN Position: [facility] RN Member Role: Primary Care Nurse Name: Danyel Davis RN Position: [facility] RN Member Role: Primary Care Nurse Name: Andres Pressley RN Position: [facility] RN Member Role: Primary Care Nurse Name: Jany Baig DO Position: [facility] Primary Care Physician Member Role: PCP Address: Address: [address] [place] [address] Adult & [place] [address]- Name: Neida Ballard RN Position: [facility] RN Member Role: Primary Care Nurse Name: Kaye Payne RN Position: [facility] RN Member Role: Primary Care Nurse Name: Garima Hutchinson Position: [facility] RN Member Role: Primary Care Nurse Name: Malgorzata Austin Position: [facility] RN Member Role: Primary Care Nurse Name: Torrie Hernandez RN Position: [facility] OB RN Member Role: Primary Care Nurse Name: Gretchen Kntuson RN Position: [facility] SN RN Member Role: Primary Care Nurse Name: Aislinn Mckee RN Position: [facility] RN Member Role: Primary Care Nurse Name: Ashley Mcelroy Position: [facility] RN Member Role: Primary Care Nurse Name: Cody Garcia Position: [facility] Associate Professional Member Role: Lifetime Consulting Provider Address: Address: [address] [place] [address] Name: Ge Covarrubias RN Position: [facility] RN Member Role: Primary Care Nurse Name: Orin Elmore RN Position: [facility] ED RN W/OE and Tasks Member Role: Primary Care Nurse Name: Allegra Liu RN Position: [facility] PCO RN Member Role: Primary Care Nurse Name: Shayan Pandya MD Position: [facility] Renal MD Member Role: Lifetime Consulting Physician Address: Address: [address] [place] [address] [address] [facility] [address] Name: Darlene Rodrigez RN Position: [facility] RN Member Role: Primary Care Nurse Name: Kwan Mills RN Position: [facility] RN Member Role: Primary Care Nurse Name: Dolores Can RN Position: [facility] RN Member Role: Primary Care Nurse Name: Kim Rendon RN Position: [facility] RN Member Role: Primary Care Nurse Name: Monica Rowell RN Position: [facility] RN Member Role: Primary Care Nurse Care Team Related Persons Name: MARLEN CABEZAS Address: home [address] [place] [id number] Name: MARLEN CABEZAS Address: home [address] [place] [address] Name: RAULITO NICK Name: GEMA CABEZAS Address: home [address] [place] [address]
--- OUTSIDE RECORDS SUMMARY | 2023-12-15 20:59 | XMS_ITS | Continuity of Care Document ---
Author Organization [facility] Address [address] [place] [address]- Care Team Providers Care Manager Strategic Alliances Name Role Phone Jany Baig DO Primary Care Physician ( [phone] Encounter [facility] [place]): 09/22/23 - 10/22/23 [facility] [address] [place] [address]- Allergies, Adverse Reactions, Alerts Substance Reaction Severity [...] (oldterm) 08/02/12 Give n 1Result Comment: [facility] [place]: [id number] 2Result Comment: [04/29/2017] [id number] 3Admin Note: FLUARIX 4Admin Note: 3 RDINJ 5Admin Note: #2 Medications acamprosate 333 mg oral delayed release tablet 2 tablet = 666 mg, By Mouth, 3 times a day, # 180 tablet, 1 Refills, Maintenance, 07/28/23 11:04:00EST, EC Tablet, [facility], Partial fill upon patient request if [...] tablet, 2 Refills, Maintenance, 07/28/23 11:06:00 EST, [facility], 175, cm, 07/28/23 9:11:00 EST, Height, 61.3, kg, 07/12/23 23:27:00 EST, Dry Weight Start Date: 07/28/23 Status: Ordered amLODIPine 5 mg oral tablet 1 tablet, By Mouth, Daily, ^1R1., # 30 tablet, 2 Refills, Maintenance, 06/02/23 8:00:00 EST, [facility], 175, cm, 03/22/23 6:50:00 EDT, [...] 07/28/23 11:10:00 EST, Route to Pharmacy Electronically, [facility], Partial fill upon patient request if [...] Gm, 12 Refills, Maintenance, 07/28/23 11:06:00 EST, [facility], 28, APPLY TOPICALLY TO AFFECTED AREA(S) [...] Gm, 1 Refills, Maintenance, 07/28/23 12:07:00 EST, [facility], 30, USE 1 SPRAY(S) INTO EACH [...] tablet, 3 Refills, Maintenance, 07/28/23 12:10:00 EST, [facility], 175, cm, 07/28/23 9:11:00 EST, Height, 61.3, kg,07/12/23 23:27:00 EST, Dry Weight Start Date: 07/28/23 Status: Ordered lactulose 10 gm/15 ml oral syrup 30 mL = 20 Gm, By Mouth, 3 times a day, for 30 days, # 2,700 mL, 2 Refills, Acute 10/26/23 12:13:00EDT, 07/28/23 12:13:00 EST, Syrup, [facility], Partial fill upon patient request if [...] 60 tablet, 11 Refills, Maintenance,07/28/23 12:09:00 EST, [facility], 175, cm, 07/28/23 9:11:00 EST, Height, [...] tablet, 5 Refills, Maintenance, 07/28/23 12:09:00 EST, [facility], 60, 1 tablet By Mouth Daily [...] 09/29/24 19:11:00 EDT, 09/30/23 19:11:00 EDT, Gum, [facility], Partial fill upon patient request if [...] 07/28/23 12:11:00 EST, Route to Pharmacy Electronically, [facility], 175, cm, 07/28/23 9:11:00EST, Height, 61.3, [...] 07/28/23 12:12:00 EST, Route to Pharmacy Electronically, [facility], 175, cm, 07/28/23 9:11:00 EST, Height, 61.3, kg, 07/12/23 23:27:00 EST, Dry Weight Start Date: 07/28/23 Status: Ordered spironolactone 25 mg oral tablet 1, tablet, By Mouth, Daily, ^1R2., # 30 tablet, Refills 5, Tot. Refills 5, Maintenance, 04/14/23 12:41:00 EDT, Route to Pharmacy Electronically, [facility], 175, cm, 03/22/23 6:50:00 EDT, Height, 77.5, kg, 03/20/23 11:30:00 EDT, Dry Weight Start Date: 04/14/23 Status: Ordered Tab-A-Jesse oral tablet 1 tablet, By Mouth, Daily, R1., # 30 tablet, 5 Refills, Maintenance, 05/06/23 19:16:00 EST, [facility], 30, TAKE 1 TABLET BY [...] 02/26/23 10:11:00 EDT, Route to Pharmacy Electronically, [facility], 175, cm, 12/03/22 11:50:00 EDT, Height,84, kg, 02/12/23 11:30:00 EDT, Dry Weight Start Date: 02/26/23 Status: Ordered traZODone 50 mg oral tablet 50 mg, 1, tablet, By Mouth, Daily at bedtime, ^2R4., # 60 tablet, Refills 5, Tot. Refills 5, Maintenance, 07/28/23 12:12:00 EST, Route to Pharmacy Electronically, [facility], 175, cm, 07/28/23 9:11:00 EST, Height, [...] 02/09/23 23:18:00 EDT, Route to Pharmacy Electronically, [facility], 175, cm, 12/03/22 11:50:00 EDT, Height, 88.9, kg, 10/21/22 20:41:00 EDT, Dry Weight Start Date: 02/09/23 Status: Ordered Vitamin B1 100 mg oral tablet 1, tablet, By Mouth, Daily, # 90 tablet, Refills 3, Tot. Refills 3, Maintenance, 07/28/23 12:12:00 EST, Route to Pharmacy Electronically, [facility], 175, cm, 07/28/23 9:11:00 EST, Height, 61.3, kg, 07/12/23 23:27:00 EST, Dry Weight Start Date: 07/28/23 Status: Ordered Vitamin B6 50 mg oral tablet 1, tablet, By Mouth, Daily, R1., # 90 tablet, Refills 4, Maintenance, 11/16/22 13:39:00 EDT, Route to Pharmacy Electronically, [facility], 175, cm, 11/13/22 10:42:00 EDT, Height, 88.9, kg, 10/21/22 20:41:00 EDT, Dry Weight Start Date: 11/16/22 Status: Ordered Vitamin B6 50 mg oral tablet 1, tablet, By Mouth, Daily, R1., # 90 tablet, Refills 4, Tot. Refills 4, Maintenance, 07/28/23 12:11:00 EST, Route to Pharmacy Electronically, [facility], 175, cm, 07/28/23 9:11:00 EST, Height, [...] each, 5 Refills, Maintenance, 09/30/23 19:11:00 EDT, [facility], 175, cm, 09/24/23 11:09:00 EDT, Height, [...] Team Personnel Name: Shira Galindo RN Position: [facility] RN Member Role: Primary Care Nurse Name: Alexandra Colmenares RN Position: [facility] ED RN W/OE and Tasks Member Role: Primary Care Nurse Name: Garima Manzano RN Position: [facility] RN Member Role: Primary Care Nurse Name: Malgorzata Marinelli RN Position: [facility] RN Member Role: Primary Care Nurse Name: Joyce Roach RN Position: [facility] ED RN W/OE and Tasks Member Role: Primary Care Nurse Name: Lucina Peralta RN Position: [facility] RN Member Role: Primary Care Nurse Name: Maria Esther Craig LPN Position: [facility] RN Member Role: Primary Care Nurse Name: Kaye Comer RN Position: [facility] RN Member Role: Primary Care Nurse Name: Andres Pressley RN Position: [facility] RN Member Role: Primary Care Nurse Name: Jany Baig DO Position: [facility] Physician - Primary Care Member Role: PCP Address: Address: [address] [place] [address] Adult [facility] [address] Name: Mary Haines RN Position: [facility] RN Member Role: Primary Care Nurse Name: Garima Curry RN Position: [facility] RN Member Role: Primary Care Nurse Name: Malgorzata Austin Position: [facility] RN Member Role: Primary Care Nurse Name: Ibeth Adams RN Position: [facility] RN Member Role: Primary Care Nurse Name: Torrie Hernandez RN Position: [facility] OB RN Member Role: Primary Care Nurse Name: Gretchen Knutson RN Position: [facility] SN RN Member Role: Primary Care Nurse Name: Aislinn Mckee RN Position: [facility] RN Member Role: Primary Care Nurse Name: Ashley Mcelroy Position: [facility] RN Member Role: Primary Care Nurse Name: Ashok Kevin RN Position: [facility] RN Member Role: Primary Care Nurse Name: Cody Garcia Position: [facility] Associate Professional Member Role: Lifetime Consulting Provider Address: Address: [address] [place] [address]- Name: Paige Nascimento RN Position: [facility] RN Member Role: Primary Care Nurse Name: Ge Covarrubias RN Position: [facility] RN Member Role: Primary Care Nurse Name: Orin Elmore RN Position: [facility] ED RN W/OE and Tasks Member Role: Primary Care Nurse Name: Allegra Liu RN Position: [facility] AMB Nurse Member Role: Primary Care Nurse Name: Shayan Pandya MD Position: [facility] Renal MD Member Role: Lifetime Consulting Physician Address: Address: [address] [place] [address] [address] [facility] [place] [address]- Name: Kimberley Pittman RN Position: [facility] RN Member Role: Primary Care Nurse Name: Darlene Rodrigez RN Position: [facility] RN Member Role: Primary Care Nurse Name: Dixie Duke RN Position: [facility] RN Member Role: Primary Care Nurse Name: Kwan Mills RN Position: [facility] ED RN W/OE and Tasks Member Role: Primary Care Nurse Name: Ingrid Verdugo RN Position: [facility] RN Member Role: Primary Care Nurse Name: Monica Rowell RN Position: [facility] RN Member Role: Primary Care Nurse Name: Jimi Fitzpatrick RN Position: [facility] RN Member Role: Primary Care Nurse Care Team Related Persons Name: MARLEN CABEZAS Address: [address] [place] [address] Name: MARLEN CABEZAS Address: [address] [place] [address] Name: NICK CABEZAS Name: GEMA CABEZAS Address: home [address] [place] [address] Name: ELTON CHENG Address: home [address] [place] [address]
--- OUTSIDE RECORDS SUMMARY | 2023-12-15 20:59 | XMS_ITS | Continuity of Care Document ---
Author Organization [facility] Address [address] [place] [address]- Care Team Providers Care Nuclear Monitoring Technician Name Role Phone Jany Baig DO Primary Care Physician Encounter [facility] Date(s): 12/08/22 - 04/07/23 [facility] [address] [place] [address]- Attending Physician: Jany Baig DO Allergies, Adverse [...] 1Result Comment: [facility]: [id number] 2Result Comment: [04/29/2017] [id number] 3Admin Note: FLUARIX 4Admin Note: 3 RDINJ 5Admin Note: #2 Medications acamprosate 333 mg oral delayed release tablet 1 tablet = 333 mg, By Mouth, 3 times a day, # 42 tablet, 4 Refills, Maintenance, 11/05/22 11:31:00 EDT, EC Tablet, [facility], Partial fill upon patient request if the prescription is for a schedule II opioid drug., 175, cm, 11/05/22 10:21:00... Start Date: 11/05/22 Stop Date: 01/14/23 Status: Ordered amLODIPine 5 mg oral tablet 1 tablet, By Mouth, Daily, ^1R1., # 30 tablet, 5 Refills, Maintenance, 12/22/22 7:20:00 EDT, [facility], 175, cm, 12/03/22 11:50:00 EDT, Height, 88.9, kg, 10/21/22 20:41:00 EDT, Dry Weight Start Date: 12/22/22 Status: Ordered baclofen 10 mg oral tablet See Instructions, TAKE ONE TABLET BY MOUTH THREE TIMES A DAY ^1R1,1R2,1R4, # 90 tablet, Refills 5, Tot. Refills 5, Maintenance, 01/14/23 17:55:00 EDT, Instructions Replace Required Details, Route to [facility], [facility], 175, cm... Start Date: 01/14/23 Status: Ordered calcium (as carbonate)-vitamin D 500 mg-400 intl units oral tablet 1 tablet, By Mouth, Daily, ^1R1., # 28 tablet, 0 Refills, Maintenance, 12/01/22 16:12:00 EDT, [facility], 28, 1 tablet By Mouth Daily,Instr:^1R1., [...] capsule, 6 Refills, Maintenance, 12/03/22 12:13:00 EDT, [facility], 175, cm, 12/03/22 11:50:00 EDT, Height, [...] Gm, 12 Refills, Maintenance, 03/24/23 10:52:00 EDT, [facility], 28, APPLY TOPICALLY TO AFFECTED AREA(S) [...] 05/03/23 12:01:00 EST, 03/22/23 12:01:00 EDT, Tablet, [facility]/pharmacy #[id number], Partial fill upon [...] 03/20/23 16:22:00 EDT, Route to Pharmacy Electronically, [facility], 175, cm, 03/20/23 15:31:00 EDT, Height, 77.5, kg, 03/20/23 11:30:00 EDT, Dry Weight Start Date: 03/20/23 Status: Ordered furosemide 20 mg oral tablet 20 mg, 1, tablet, By Mouth, Every other day, # 30 tablet, Refills 3, Tot. Refills 3, Maintenance, 01/28/23 12:31:00 EDT, Route to Pharm[facility], [facility], Partial fill upon patient request if the prescription is for a schedule II o... Start Date: 01/28/23 Status: Ordered gabapentin 300 mg oral capsule 300 mg, 1, capsule, By Mouth, Daily at bedtime, note dose/frequency change, # 90 capsule, Refills 4, Tot. Refills 4, Maintenance, 11/05/22 11:05:00 EDT, Route to Pharmacy Electronically, [facility], 175, cm, 11/05/22 10:21:00 EDT, Height, 88.9... Start Date: 11/05/22 Stop Date: 01/29/24 Status: Ordered hydrOXYzine hydrochloride 10 mg oral tablet 2 tablet, By Mouth, 2 times a day, PRN NEEDED FOR ANXIETY (VIAL), # 30 tablet, 3 Refills, Maintenance, 12/22/22 16:57:00 EDT, [facility], 175, cm, 12/03/22 11:50:00 EDT, Height, 88.9, kg, 10/21/22 20:41:00 EDT, Dry Weight Start Date: 12/22/22 Status: Ordered lactulose 10 gm/15 ml oral syrup 15 mL, By Mouth, 2 times a day, # 120 mL, 6 Refills, Maintenance, 02/26/23 10:11:00 EDT, [facility], 4, TAKE 15ML BY MOUTH TWO TIMES A DAY, 175, cm, 12/03/22 11:50:00 EDT, Height, 84, kg, 02/12/23 11:30:00 EDT, Dry Weight Start Date: 02/26/23 Status: Ordered magnesium oxide 400 mg oral tablet See Instructions, TAKE 1 TABLET BY MOUTH TWICE A DAY^1R1,1R4, # 60 tablet, 11 Refills, Maintenance,01/28/23 12:31:00 EDT, [facility], 175, cm, 12/03/22 11:50:00 EDT, [...] 02/26/23 10:11:00 EDT, Route to Pharmacy Electronically, [facility], 175, cm, 12/03/22 11:50:00 EDT, [...] 05/03/23 12:02:00 EST, 03/22/23 12:02:00 EDT, Capsule, [facility]/pharmacy #[id number], Partial fill upon patient request if the prescription is for a schedule II opioid drug., 175, c... Start Date: 03/22/23 Stop Date: 05/03/23 Status: Ordered spironolactone 25 mg oral tablet 25 mg, 1, tablet, By Mouth, Daily, # 30 tablet, Refills 5, Tot. Refills 5, Maintenance, 11/05/22 11:31:00 EDT, Route to Pharmacy Electronically, [facility], Partial fill upon patient request if the prescription is for a schedule II opioid drug... Start Date: 11/05/22 Status: Ordered Tab-A-Jesse oral tablet 1 tablet, By Mouth, Daily, # 90 tablet, 1 Refills, 12/01/22 12:59:00 EDT, [facility], 28, 1tablet By Mouth Daily, 175, cm, 11/13/22 10:42:00 EDT, Height, 88.9, kg, 10/21/22 20:41:00 EDT, DryWeight Start Date: 12/01/22 Status: Ordered traZODone 50 mg oral tablet 2, tablet, By Mouth, Daily at bedtime, ^2R4., # 60 tablet, Refills 5, Maintenance, 02/26/23 10:11:00 EDT, Route to Pharmacy Electronically, [facility], 175, cm, 12/03/22 11:50:00 EDT, Height,84, [...] 02/09/23 23:18:00 EDT, Route to Pharmacy Electronically, [facility], 175, cm, 12/03/22 11:50:00 EDT, Height, 88.9, kg, 10/21/22 20:41:00 EDT, Dry Weight Start Date: 02/09/23 Status: Ordered Vitamin B6 50 mg oral tablet 1, tablet, By Mouth, Daily, R1., # 90 tablet, Refills 4, Maintenance, 11/16/22 13:39:00 EDT, Route to Pharmacy Electronically, [facility], 175, cm, 11/13/22 10:42:00 EDT, Height, [...] tablet, 3 Refills, Maintenance, 02/26/23 10:11:00 EDT, [facility], 175, cm, 12/03/22 11:50:00 EDT, Height, [...] Name: Alexandra Colmenares RN Position: [facility] ED RN W/OE and Tasks Member Role: Primary Care Nurse Name: Garima Manzano RN Position: [facility] RN Member Role: Primary Care Nurse Name: Malgorzata Marinelli RN Position: [facility] RN Member Role: Primary Care Nurse Name: Joyce Roach RN Position: [facility] RN Member Role: Primary Care Nurse Name: Mary Suazo RN Position: [facility] RN Member Role: Primary Care Nurse Name: Andres Pressley RN Position: [facility] RN Member Role: Primary Care Nurse Name: Jany Baig DO Position: [facility] Physician - Primary Care Member Role: PCP Address: Address: [address] [place] [address] Adult [place] [address]- Name: Kaye Payne RN Position: [facility] RN Member Role: Primary Care Nurse Name: Garima Hutchinson Position: [facility] RN Member Role: Primary Care Nurse Name: Malgorzata Austin Position: [facility] RN Member Role: Primary Care Nurse Name: Ibeth Adams RN Position: [facility] RN Member Role: Primary Care Nurse Name: Torrie Hernandez RN Position: [facility] OB RN Member Role: Primary Care Nurse Name: Gretchen Knutson RN Position: [facility] SN RN Member Role: Primary Care Nurse Name: Aislinn Mckee RN Position: [facility] RN Member Role: Primary Care Nurse Name: Ashley Mcelroy Position: [facility] RN Member Role: Primary Care Nurse Name: Ashok Kevin RN Position: [facility] RN Member Role: Primary Care Nurse Name: Cody Garcia Position: [facility] Associate Professional Member Role: Lifetime Consulting Provider Address: Address: [address] [place] [address]- Name: Paige Nascimento RN Position: [facility] RN Member Role: Primary Care Nurse Name: Ge Covarrubias RN Position: [facility] RN Member Role: Primary Care Nurse Name: Orin Elmore RN Position: [facility] ED RN W/OE and Tasks Member Role: Primary Care Nurse Name: Allegra Liu RN Position: [facility] AMB Nurse Member Role: Primary Care Nurse Name: Shayan Pandya MD Position: [facility] Renal MD Member Role: Lifetime Consulting Physician Address: Address: [address] [place] [address] [address] [facility], [place] [address]- Name: Darlene Rodrigez RN Position: [facility] RN Member Role: Primary Care Nurse Name: Kwan Mills RN Position: [facility] RN Member Role: Primary Care Nurse Name: Dolores Can RN Position: [facility] RN Member Role: Primary Care Nurse Name: Ingrid Verdugo RN Position: [facility] RN Member Role: Primary Care Nurse Name: Monica Rowell RN Position: [facility] RN Member Role: Primary Care Nurse Name: Jimi Fitzpatrick RN Position: [facility] RN Member Role: Primary Care Nurse Care Team Related Persons Name: MARLEN CABEZAS Address: home [address] [place] [address] Name: MARLEN CABEZAS Address: home [address] [place] [id number] Name: NICK CABEZAS Name: GEMA CABEZAS Address: home [address] [place] [id number]
--- OUTSIDE RECORDS SUMMARY | 2023-12-15 21:00 | XMS_ITS | Continuity of Care Document ---
Author Organization [facility] Address [address] [place] [address]- Care Team Providers Care Documentation Lead Name Role Phone Jany Baig DO Primary Care Physician Encounter [facility] Date(s): 12/03/22 - 12/10/22 [facility] [address] [place], [place] [address] Attending Physician: Jany Baig DO Allergies, Adverse [...] 1Result Comment: [facility]: [id number] 2Result Comment: [04/29/2017] [id number] 3Admin Note: FLUARIX 4Admin Note: 3 RDINJ 5Admin Note: #2 Medications acamprosate 333 mg oral delayed release tablet 1 tablet = 333 mg, By Mouth, 3 times a day, # 42 tablet, 4 Refills, Maintenance, 11/05/22 11:31:00 EDT, EC Tablet, [facility], Partial fill upon patient request if the prescription is for a schedule II opioid drug., 175, cm, 11/05/22 10:21:00... Start Date: 11/05/22 Stop Date: 01/14/23 Status: Ordered amLODIPine 5 mg oral tablet 1 tablet, By Mouth, Daily, ^1R1., # 30 tablet, 2 Refills, Maintenance, 10/06/22 4:58:00 EDT, [facility], 176, cm, 09/07/22 8:56:00 EDT, Height, 82.1, kg, 09/07/22 8:59:00 EDT, Dry Weight Start Date: 10/06/22 Status: Ordered baclofen 10 mg oral tablet See Instructions, TAKE 1 TABLET BY MOUTH THREE TIMES DAILY, # 90 tablet, Refills 0, Tot. Refills 0,Maintenance, 12/01/22 16:12:00 EDT, Instructions Replace Required Details, Route to Pharmacy Electronically, [facility], 175, cm, 11/13/22 10:4... Start Date: 12/01/22 Status: Ordered calcium (as carbonate)-vitamin D 500 mg-400 intl units oral tablet 1 tablet, By Mouth, Daily, ^1R1., # 28 tablet, 0 Refills, Maintenance, 12/01/22 16:12:00 EDT, [facility], 28, 1 tablet By Mouth Daily,Instr:^1R1., [...] capsule, 6 Refills, Maintenance, 12/03/22 12:13:00 EDT, [facility], 175, cm, 12/03/22 11:50:00 EDT, [...] Gm, 11 Refills, Maintenance, 08/07/22 12:12:00 EST, [facility]/pharmacy #[id number], 30, USE 1 SPRAY(S) INTO EACH NOSTRIL TWICE A DAY, 176, cm,08/07/22 11:37:00 EST, Height, 79.8, kg, 07/31/22 2... Start Date: 08/07/22 Status: Ordered folic acid 1 mg oral tablet 1, tablet, By Mouth, Daily, R1., # 30 tablet, Refills 5, Tot. Refills 5, Maintenance, 10/06/22 4:59:00 EDT, Route to Pharmacy Electronically, [facility], 176, cm, 09/07/22 8:56:00 EDT, [...] 14:50:00 EDT, Route to Pharmacy Electronically, [facility], 169, cm, 09/03/22 14:21:00 EDT, Height, 69, kg, 08/16/22 1:04:00 EST, Dry Weight Start Date: 09/03/22 Status: Ordered gabapentin 300 mg oral capsule 300 mg, 1, capsule, By Mouth, Daily at bedtime, note dose/frequency change, # 90 capsule, Refills 4, Tot. Refills 4, Maintenance, 11/05/22 11:05:00 EDT, Route to Pharmacy Electronically, [facility], 175, cm, 11/05/22 10:21:00 EDT, Height, 88.9... Start Date: 11/05/22 Stop Date: 01/29/24 Status: Ordered hydrOXYzine hydrochloride 10 mg oral tablet 2 tablet, By Mouth, 2 times a day, PRN NEEDED FOR ANXIETY (VIAL), # 30 tablet, 3 Refills, Maintenance, 09/24/22 17:01:00 EDT, [facility], 176, cm, 09/07/22 8:56:00 EDT, Height, 82.1, kg, 09/07/22 8:59:00 EDT, Dry Weight Start Date: 09/24/22 Status: Ordered lactulose 10 gm/15 ml oral syrup 15 mL, By Mouth, 2 times a day, # 120 mL, 6 Refills, Maintenance, 09/22/22 12:15:00 EDT, [facility], 4, TAKE 15ML BY MOUTH TWO TIMES A DAY, 176, cm, 09/07/22 8:56:00 EDT, Height, 82.1, kg, 09/07/22 8:59:00 EDT, Dry Weight Start Date: 09/22/22 Status: Ordered Lidoderm 5% film 1 patch, Topically, Daily, remove patches after 12 hours NSAIDS contraindicated High dose tylenol contraindicated remove patches after 12 hours Nueropathy, # 30 patch, 5 Refills, Maintenance, 11/05/22 11:04:00 EDT, [facility], Partial klaudia... Start Date: 11/05/22 Status: Ordered Melatonin 3 mg oral tablet 1 tablet, By Mouth, Daily at bedtime, PRN NEEDED FOR INSOMNIA (PACKAGE IN TRAY)^1R4, # 60 tablet, 5 Refills, Maintenance, 06/12/22 18:11:00 EST, [facility], 60, TAKE 1 TABLET BY [...] 09/03/22 14:53:00 EDT, Route to Pharmacy Electronically, [facility], Partial fill upon patient request [...] 11/05/22 11:31:00 EDT, Route to Pharmacy Electronically, [facility], Partial fill upon patient request if the prescription is for a schedule II opioid drug... Start Date: 11/05/22 Status: Ordered Tab-A-Jesse oral tablet 1 tablet, By Mouth, Daily, # 90 tablet, 1 Refills, 12/01/22 12:59:00 EDT, [facility], 28, 1tablet By Mouth Daily, 175, cm, 11/13/22 10:42:00 EDT, Height, 88.9, kg, 10/21/22 20:41:00 EDT, DryWeight Start Date: 12/01/22 Status: Ordered traZODone 50 mg oral tablet 2 tablets, By Mouth, Daily at bedtime, # 60 each, Refills 5, Tot. Refills 5, Maintenance, 09/03/22 17:13:00 EDT, Route to Pharmacy Electronically, [facility], 169, cm, 09/03/22 14:21:00 EDT, Height, [...] 03/13/22 8:37:00 EDT, Route to Pharmacy Electronically, [facility], 175, cm, 01/06/22 10:34:00 EDT, Height, 78.3, kg, 12/26/2218:05:00 EDT, Dry Weight Start Date: 03/13/22 Status: Ordered Vitamin B6 50 mg oral tablet 1, tablet, By Mouth, Daily, R1., # 90 tablet, Refills 4, Maintenance, 11/16/22 13:39:00 EDT, Route to Pharmacy Electronically, [facility], 175, cm, 11/13/22 10:42:00 EDT, Height, 88.9, kg, 10/21/22 20:41:00 EDT, Dry Weight Start Date: 11/16/22 Status: Ordered Voltaren 1% topical gel 1 application, Topically, 4 times a day, PRN for pain, # 100 Gm, 0 Refills, Maintenance, 12/01/22 16:12:00 EDT, Gel, [facility], Partial fill upon patient request [...] tablet, 3 Refills, Maintenance, 10/01/22 15:19:00 EDT, [facility], 176, cm, 09/07/22 8:56:00 EDT, [...] oldest [Reference Range]: 1 Height 175 cm (12/03/22 11:50 AM) Oxygen Saturation [94-100 %] 99 % (12/03/22 11:50 AM) Pulse Rate [55-90 bpm] 97 bpm *H* (12/03/22 11:50 AM) Blood Pressure [90-138/55-84 mm Hg] 115/ 71mm Hg (12/03/22 11:50 AM) Temperature [96.8-100.4 DegF] 97.5 DegF (12/03/22 11:50 AM) Mode of Delivery (Oxygen) Room air (12/03/22 11:50 AM) Blood pressure sites Arm, left (12/03/22 11:50 AM) Temperature Route Oral (12/03/22 11:50 AM) Social History Social History Type [...] Jany Baig DO Position: [facility] Physician - Primary Care Member Role: PCP Address: Address: [address] [place] [address] [facility] [address] Name: Neida Ballard RN Position: [facility] RN Member Role: Primary Care Nurse Name: Kaye Payne RN Position: [facility] RN Member Role: Primary Care Nurse Name: Garima Hutchinson Position: [facility] RN Member Role: Primary Care Nurse Name: Malgorzata Austin Position: S RN Member Role: Primary Care Nurse Name: Ibeth Adams RN Position: [facility] RN Member [...] Role: Lifetime Consulting Provider Address: Address: [address] [place] [address]- Name: Ge Covarrubias RN Position: [facility] RN Member Role: Primary Care Nurse Name: Orin Elmore RN Position: [facility] ED RN W/OE and Tasks Member Role: Primary Care Nurse Name: Allegra Liu RN Position: [facility] AMB Nurse Member Role: Primary Care Nurse Name: Shayan Pandya MD Position: [facility] Renal MD Member Role: Lifetime Consulting Physician Address: Address: [address] [place] [address] [address] [facility] [place] [address]- Name: Darlene Rodrigez RN Position: [facility] RN Member Role: Primary Care Nurse Name: Kwan Mills RN Position: [facility] RN Member Role: Primary Care Nurse Name: Dolores Can RN Position: [facility] RN Member Role: Primary Care Nurse Name: Kim Rendon RN Position: [facility] RN Member Role: Primary Care Nurse Name: Moncia Rowell RN Position: [facility] RN Member Role: Primary Care Nurse Name: Jimi Fitzpatrick RN Position: [facility] RN Member Role: Primary Care Nurse Care Team Related Persons Name: MARLEN CABEZAS Address: home [address] [place] [id number] Name: MARLEN CABEZAS Address: [address] [place] [address] Name: NICK CABEZAS Name: GEMA CABEZAS Address: home [address] [place] [id number]
--- OUTSIDE RECORDS SUMMARY | 2023-12-15 21:00 | XMS_ITS | Continuity of Care Document ---
Author Organization [facility] ter Address [address] [place] [address]- Care Team Providers Care Loss Control Manager Name Role Phone Jany Baig DO Primary Care Physician Encounter [facility] Date(s): 12/05/21 - 12/05/[address] [address]- Encounter Diagnosis Hypokalemia(Final) - 12/05/21 Discharge Disposition: A-D/C Home Attending Physician: Malathi Capellan MD Admitting Physician: Malathi Capellan MD Referring Physician: Not on Staff, Referring [...] (oldterm) 08/02/12 Give n 1Result Comment: [04/29/2017] [id number] 2Admin Note: FLUARIX 3Admin Note: 3 RDINJ 4Admin Note: #2 Medications amLODIPine 5 mg oral tablet 5 mg, 1, tablet, By Mouth, Daily, # 30 tablet, Refills 5, Tot. Refills 5, Maintenance, 10/21/21 10:15:00 EDT, Route to Pharmacy Electronically, [email or web address], Partial fill upon patient request if the prescription is for a schedule II opioid drug.... Start Date: 10/21/21 Status: Ordered Co Q-10 100 mg oral capsule 1 capsule, By Mouth, 4 times a day, # 120 capsule, 6 Refills, [email or web address], 174, cm, 02/27/2115:17:00 EDT, Height, 81, kg, 02/27/21 14:06:00 EDT, Dry Weight Start Date: 07/08/21 Status: Ordered fluticasone 50 mcg/inh nasal spray See Instructions, USE 1 SPRAY INTO EACH NOSTRIL TWICE A DAY, # 16 Gm, 5 Refills, [email or web address], 30, USE 1 SPRAY INTO EACH NOSTRIL TWICE A DAY, 174, cm, 07/14/21 8:16:00 EST, Height, 81, kg, 02/27/21 14:06:00 EDT, Dry Weight Start Date: 08/04/21 Status: Ordered folic acid 1 mg oral tablet 1 mg, 1, tablet, By Mouth, Daily, # 90 tablet, Refills 4, Tot. Refills 4, Maintenance, 10/27/21 10:40:00 EDT, Route to Pharmacy Electronically, [email or web address], Partial fill upon patient request if the prescription is for a schedule II opioid drug.... Start Date: 10/27/21 Stop Date: 01/20/23 Status: Ordered furosemide 40 mg oral tablet See Instructions, TAKE 1 TABLET BY MOUTH TWICE A DAY, # 60 tablet, Refills 5, Instructions Replace Required Details, [facility], 170, cm, 11/12/21 10:02:00 EDT, Height, 78, kg, 11/04/21 12:03:00 EDT, Dry Weight Start Date: 11/25/21 Status: Ordered gabapentin 300 mg oral capsule 300 mg, 1, capsule, By Mouth, Daily at bedtime, note dose change, # 90 capsule, Refills 4, Tot. Refills 4, Maintenance, 10/27/21 10:39:00 EDT, Route to Pharmacy Electronically, [email or web address], Partial fill upon patient request if the prescription... Start Date: 10/27/21 Stop Date: 01/20/23 Status: Ordered hydrOXYzine hydrochloride 25 mg oral tablet 1 TO 2 TABLETS, By Mouth, 3 times a day, PRN NEEDED FOR ANXIETY (VIAL), # 60 tablet, 0 Refills, [facility], 170, cm, 11/12/21 10:02:00 EDT, Height, 78, kg, 11/04/21 12:03:00 EDT, Dry Weight Start Date: 11/26/21 Status: Ordered lactulose 10 gm/15 ml oral syrup See Instructions, TAKE 30ML BY MOUTH THREE TIMES DAILY NEEDED TO ACHEIVE 3-4 BOWL MOVEMENTS PER DAY, # 3,000 mL, 10 Refills, [facility], 30, TAKE 30ML BY MOUTH THREE TIMES DAILY NEEDED TO ACHEIVE 3-4 BOWL MOVEMENTS PER DAY, 174, cm, 02/12... Start Date: 07/02/21 Status: Ordered magnesium oxide 400 mg oral tablet 1 tablet, By Mouth, 2 times a day, # 60 tablet, 1 Refills, [facility], 170, cm, 11/12/21 10:02:00 EDT, Height, 78, kg, 11/04/21 12:03:00 EDT, Dry Weight Start Date: 11/26/21 Status: Ordered Melatonin 3 mg oral tablet 1 tablet, By Mouth, Daily at bedtime, PRN NEEDED FOR INSOMNIA (PACKAGE IN TRAY), # 60 tablet, 5 Refills, Maintenance, 06/02/21 16:17:00 EST, [facility], 28, 1 tablet By Mouth [...] 11:42:00 EDT, Route to Pharmacy Electronically, [facility], Partial fill upon patient request if the prescription is... Start Date: 10/22/21 Stop Date: 01/15/23 Status: Ordered Tab-A-Jesse oral tablet 1 tablet, By Mouth, Daily, # 90 tablet, 9 Refills, [facility], 28, TAKE 1 TABLET BY [...] Details, Route to Pharmacy Electronically, [facility], 170,... Start Date: 11/25/21 Status: Ordered Vitamin B1 100 mg oral tablet 1, tablet, By Mouth, Daily, # 90 tablet, Refills 1, Route to Pharmacy Electronically, [facility], 174, cm, 02/27/21 15:17:00 EDT, Height, 81, kg, 02/27/21 14:06:00 EDT, Dry Weight Start Date: 06/16/21 Status: Ordered Xifaxan 550 mg oral tablet 1 tablet, By Mouth, 2 times a day, # 60 tablet, 1 Refills, [facility], 170, cm, 11/05/21 11:11:00 EDT, [...] 3 Oxygen Saturation [94-100 %] 98 % (12/05/21 10:47 AM) 98 % (12/05/21 4:00 AM) 97 % (12/05/21 1:13 AM) Pulse Rate [55-90 bpm] 95 bpm *H* (12/05/21 10:47 AM) 95 bpm *H* (12/05/21 10:27 AM) 90 bpm (12/05/21 4:00 AM) Blood Pressure [90-138/55-84 mm Hg] 141/81mm Hg *H* (12/05/21 10:47 AM) 141/81mm Hg *H* (12/05/21 10:27 AM) 136/72mm Hg (12/05/21 4:00 AM) Respiratory Rate [16-30 br/min] 16 br/min (12/05/21 10:47 AM) 16 br/min (12/05/21 10:27 AM) 18 br/min (12/05/21 4:00 AM) Temperature [96.8-100.4 DegF] 98.3 DegF (12/05/21 10:47 AM) 97.7 DegF (12/05/21 1:13 AM) Mode of Delivery (Oxygen) Room air (12/05/21 10:47 AM) Room air (12/05/21 4:00 AM) Room air (12/05/21 1:13 AM) Blood pressure sites Arm, left (12/05/21 10:47 AM) Arm, right (12/05/21 1:13 AM) Temperature Route Oral (12/05/21 10:47 AM) Oral (12/05/21 1:13 AM) Social History Social History Type Response Smoking Status 10 or more cigarette s (1/2 pack or more)/day in last 30 days entered on: 02/04/19 Sex
--- OUTSIDE RECORDS SUMMARY | 2023-12-15 21:00 | XMS_ITS | Continuity of Care Document ---
Author Organization [facility] Address [address] [place] [address]- Care Team Providers Care Transport Assistant Name Role Phone Jany Baig DO Primary Care Physician ( [phone] Encounter [facility] Date(s): 11/11/22 - 12/11/22 [facility] [address] [place], [place] [address] Allergies, Adverse Reactions, Alerts Substance Reaction Severity [...] acel (oldterm) 08/02/12 Give n 1Result Comment: [facility]: [id number] 2Result Comment: [04/29/2017] [id number] 3Admin Note: FLUARIX 4Admin Note: 3 RDINJ 5Admin Note: #2 Medications acamprosate 333 mg oral delayed release tablet 1 tablet = 333 mg, By Mouth, 3 times a day, # 42 tablet, 4 Refills, Maintenance, 11/05/22 11:31:00 EDT, EC Tablet, [facility], Partial fill upon patient request if the prescription is for a schedule II opioid drug., 175, cm, 11/05/22 10:21:00... Start Date: 11/05/22 Stop Date: 01/14/23 Status: Ordered amLODIPine 5 mg oral tablet 1 tablet, By Mouth, Daily, ^1R1., # 30 tablet, 2 Refills, Maintenance, 10/06/22 4:58:00 EDT, [facility], 176, cm, 09/07/22 8:56:00 EDT, Height, 82.1, kg, 09/07/22 8:59:00 EDT, Dry Weight Start Date: 10/06/22 Status: Ordered baclofen 10 mg oral tablet See Instructions, TAKE 1 TABLET BY MOUTH THREE TIMES DAILY, # 90 tablet, Refills 0, Tot. Refills 0,Maintenance, 12/01/22 16:12:00 EDT, Instructions Replace Required Details, [facility], 175, cm, 11/13/22 10:4... Start Date: 12/01/22 Status: Ordered calcium (as carbonate)-vitamin D 500 mg-400 intl units oral tablet 1 tablet, By Mouth, Daily, ^1R1., # 28 tablet, 0 Refills, Maintenance, 12/01/22 16:12:00 EDT, [facility], 28, 1 tablet By [...] capsule, 6 Refills, Maintenance, 12/03/22 12:13:00 EDT, [facility], 175, cm, 12/03/22 11:50:00 [...] Gm, 11 Refills, Maintenance, 08/07/22 12:12:00 EST, [facility]/pharmacy #[id number], 30, USE 1 SPRAY(S) INTO EACH NOSTRIL TWICE A DAY, 176, cm,08/07/22 11:37:00 EST, Height, 79.8, kg, 07/31/22 2... Start Date: 08/07/22 Status: Ordered folic acid 1 mg oral tablet 1, tablet, By Mouth, Daily, R1., # 30 tablet, Refills 5, Tot. Refills 5, Maintenance, 10/06/22 4:59:00 EDT, Route to Pharmacy Electronically, [facility], 176, cm, 09/07/22 8:56:00 EDT, Height, [...] 09/03/22 14:50:00 EDT, Route to Pharmacy Electronically, [facility], 169, cm, 09/03/22 14:21:00 EDT, Height, 69, kg, 08/16/22 1:04:00 EST, Dry Weight Start Date: 09/03/22 Status: Ordered gabapentin 300 mg oral capsule 300 mg, 1, capsule, By Mouth, Daily at bedtime, note dose/frequency change, # 90 capsule, Refills 4, Tot. Refills 4, Maintenance, 11/05/22 11:05:00 EDT, Route to Pharmacy Electronically, [facility], 175, cm, 11/05/22 10:21:00 EDT, Height, 88.9... Start Date: 11/05/22 Stop Date: 01/29/24 Status: Ordered hydrOXYzine hydrochloride 10 mg oral tablet 2 tablet, By Mouth, 2 times a day, PRN NEEDED FOR ANXIETY (VIAL), # 30 tablet, 3 Refills, Maintenance, 09/24/22 17:01:00 EDT, [facility], 176, cm, 09/07/22 8:56:00 EDT, Height, 82.1, kg, 09/07/22 8:59:00 EDT, Dry Weight Start Date: 09/24/22 Status: Ordered lactulose 10 gm/15 ml oral syrup 15 mL, By Mouth, 2 times a day, # 120 mL, 6 Refills, Maintenance, 09/22/22 12:15:00 EDT, [facility], 4, TAKE 15ML BY MOUTH TWO TIMES A DAY, 176, cm, 09/07/22 8:56:00 EDT, Height, 82.1, kg, 09/07/22 8:59:00 EDT, Dry Weight Start Date: 09/22/22 Status: Ordered Lidoderm 5% film 1 patch, Topically, Daily, remove patches after 12 hours NSAIDS contraindicated High dose tylenol contraindicated remove patches after 12 hours Nueropathy, # 30 patch, 5 Refills, Maintenance, 11/05/22 11:04:00 EDT, [facility], Partial klaudia... Start Date: 11/05/22 Status: Ordered Melatonin 3 mg oral tablet 1 tablet, By Mouth, Daily at bedtime, PRN NEEDED FOR INSOMNIA (PACKAGE IN TRAY)^1R4, # 60 tablet, 5 Refills, Maintenance, 06/12/22 18:11:00 EST, [facility], 60, TAKE 1 TABLET [...] 09/03/22 14:53:00 EDT, Route to Pharmacy Electronically, [facility], Partial fill upon patient request if [...] 11/05/22 11:31:00 EDT, Route to Pharmacy Electronically, [facility], Partial fill upon patient request if the prescription is for a schedule II opioid drug... Start Date: 11/05/22 Status: Ordered Tab-A-Jesse oral tablet 1 tablet, By Mouth, Daily, # 90 tablet, 1 Refills, 12/01/22 12:59:00 EDT, [facility], 28, 1tablet By Mouth Daily, 175, cm, 11/13/22 10:42:00 EDT, Height, 88.9, kg, 10/21/22 20:41:00 EDT, DryWeight Start Date: 12/01/22 Status: Ordered traZODone 50 mg oral tablet 2 tablets, By Mouth, Daily at bedtime, # 60 each, Refills 5, Tot. Refills 5, Maintenance, 09/03/22 17:13:00 EDT, Route to Pharmacy Electronically, [facility], 169, cm, 09/03/22 14:21:00 EDT, Height, [...] 03/13/22 8:37:00 EDT, Route to Pharmacy Electronically, [facility], 175, cm, 01/06/22 10:34:00 EDT, Height, 78.3, kg, 12/26/2218:05:00 EDT, Dry Weight Start Date: 03/13/22 Status: Ordered Vitamin B6 50 mg oral tablet 1, tablet, By Mouth, Daily, R1., # 90 tablet, Refills 4, Maintenance, 11/16/22 13:39:00 EDT, Route to Pharmacy Electronically, [facility], 175, cm, 11/13/22 10:42:00 EDT, Height, 88.9, kg, 10/21/22 20:41:00 EDT, Dry Weight Start Date: 11/16/22 Status: Ordered Voltaren 1% topical gel 1 application, Topically, 4 times a day, PRN for pain, # 100 Gm, 0 Refills, Maintenance, 12/01/22 16:12:00 EDT, Gel, [facility], Partial fill upon patient request if [...] tablet, 3 Refills, Maintenance, 10/01/22 15:19:00 EDT, [facility], 176, cm, 09/07/22 8:56:00 EDT, Height, [...] Name: Malgorzata Marinelli RN Position: [facility] RN Member Role: Primary Care Nurse Name: Joyce Roach RN Position: [facility] RN Member Role: Primary Care Nurse Name: Mary Suazo RN Position: [facility] RN Member Role: Primary Care Nurse Name: Andres Pressley RN Position: [facility] RN Member Role: Primary Care Nurse Name: Jany Baig DO Position: [facility] Physician - Primary Care Member Role: PCP Address: Address: [address] [place] [address] Adult [place] [address]- Name: Neida Ballard RN Position: [facility] RN Member Role: Primary Care Nurse Name: Kaye Payne RN Position: [facility] RN Member Role: Primary Care Nurse Name: Garima Hutchinson Position: [facility] RN Member Role: Primary Care Nurse Name: Malgorzata Austin Position: [facility] RN Member Role: Primary Care Nurse Name: Ibeth Adams RN Position: [facility] RN Member [...] Role: Lifetime Consulting Provider Address: Address: [address] [place] [address]- Name: Ge Covarrubias RN Position: [facility] RN Member Role: Primary Care Nurse Name: Orin Elmore RN Position: [facility] ED RN W/OE and Tasks Member Role: Primary Care Nurse Name: Allegra Liu RN Position: [facility] AMB Nurse Member Role: Primary Care Nurse Name: Shayan Pnadya MD Position: [facility] Renal MD Member Role: Lifetime Consulting Physician Address: Address: [address] [place] [address] [address] [facility] [place] [address]- Name: Darlene Rodrigez RN Position: [facility] RN Member Role: Primary Care Nurse Name: Kwan Mills RN Position: S RN Member Role: Primary Care Nurse Name: Dolores Can RN Position: [facility] RN Member Role: Primary Care Nurse Name: Kim Rendon RN Position: [facility] RN Member Role: Primary Care Nurse Name: Monica Rowell RN Position: [facility] RN Member Role: Primary Care Nurse Name: Jimi Fitzpatrick RN Position: [facility] RN Member Role: Primary Care Nurse Care Team Related Persons Name: MARLEN CABEZAS Address: [place] [address] Name: MARLEN CABEZAS Address: [place] [address] Name: NICK CABEZAS Name: GEMA CABEZAS Address: [place] [address]
--- OUTSIDE RECORDS SUMMARY | 2023-12-15 21:00 | XMS_ITS | Continuity of Care Document ---
Author Organization [facility] Address [address] [place] [address]- Care Team Providers Care Supervisor Multifocal Lens Name Role Phone Jany Baig DO Primary Care Physician Encounter [facility] Date(s): 11/13/22 - 11/20/22 [facility] [address] [place], [place] [address] Attending Physician: Jany Baig DO [...] n 1Result Comment: [facility]: [id number] 2Result Comment: [04/29/2017] [id number] 3Admin Note: FLUARIX 4Admin Note: 3 RDINJ 5Admin Note: #2 Medications acamprosate 333 mg oral delayed release tablet 1 tablet = 333 mg, By Mouth, 3 times a day, # 42 tablet, 4 Refills, Maintenance, 11/05/22 11:31:00 EDT, EC Tablet, [facility], Partial fill upon patient request if the prescription is for a schedule II opioid drug., 175, cm, 11/05/22 10:21:00... Start Date: 11/05/22 Stop Date: 01/14/23 Status: Ordered amLODIPine 5 mg oral tablet 1 tablet, By Mouth, Daily, ^1R1., # 30 tablet, 2 Refills, Maintenance, 10/06/22 4:58:00 EDT, [facility], 176, cm, 09/07/22 8:56:00 EDT, Height, 82.1, kg, 09/07/22 8:59:00 EDT, Dry Weight Start Date: 10/06/22 Status: Ordered baclofen 10 mg oral tablet See Instructions, TAKE 1 TABLET BY MOUTH THREE TIMES DAILY, # 90 tablet, Refills 0, Maintenance, 08/07/22 12:26:00 EST, Instructions Replace Required Details, Route to Pharmacy Electronically, [facility], 176, cm, 08/07/22 11:37:00 EST, Height... Start Date: 08/07/22 Status: Ordered calcium (as carbonate)-vitamin D 500 mg-400 intl units oral tablet 1 tablet, By Mouth, Daily, ^1R1., # 28 tablet, 0 Refills, Maintenance, 10/08/22 16:58:00 EDT, [facility], 28, TAKE ONE TABLET [...] 6 Refills, Maintenance, 08/07/22 12:13:00 EST, [facility], 176, cm, 08/07/22 11:37:00 [...] Gm, 11 Refills, Maintenance, 08/07/22 12:12:00 EST, [id number], 30, USE 1 SPRAY(S) INTO EACH NOSTRIL TWICE A DAY, 176, cm,08/07/22 11:37:00 EST, Height, 79.8, kg, 07/31/22 2... Start Date: 08/07/22 Status: Ordered folic acid 1 mg oral tablet 1, tablet, By Mouth, Daily, R1., # 30 tablet, Refills 5, Tot. Refills 5, Maintenance, 10/06/22 4:59:00 EDT, Route to Pharmacy Electronically, [facility], 176, cm, 09/07/22 8:56:00 EDT, Height, 82.1, [...] EDT, Route to Pharmacy Electronically, [facility], 169, cm, 09/03/22 14:21:00 EDT, Height, 69, kg, 08/16/22 1:04:00 EST, Dry Weight Start Date: 09/03/22 Status: Ordered gabapentin 300 mg oral capsule 300 mg, 1, capsule, By Mouth, Daily at bedtime, note dose/frequency change, # 90 capsule, Refills 4, Tot. Refills 4, Maintenance, 11/05/22 11:05:00 EDT, Route to Pharmacy Electronically, [facility], 175, cm, 11/05/22 10:21:00 EDT, Height, 88.9... Start Date: 11/05/22 Stop Date: 01/29/24 Status: Ordered hydrOXYzine hydrochloride 10 mg oral tablet 2 tablet, By Mouth, 2 times a day, PRN NEEDED FOR ANXIETY (VIAL), # 30 tablet, 3 Refills, Maintenance, 09/24/22 17:01:00 EDT, [facility], 176, cm, 09/07/22 8:56:00 EDT, Height, 82.1, kg, 09/07/22 8:59:00 EDT, Dry Weight Start Date: 09/24/22 Status: Ordered lactulose 10 gm/15 ml oral syrup 15 mL, By Mouth, 2 times a day, # 120 mL, 6 Refills, Maintenance, 09/22/22 12:15:00 EDT, [facility], 4, TAKE 15ML BY MOUTH TWO TIMES A DAY, 176, cm, 09/07/22 8:56:00 EDT, Height, 82.1, kg, 09/07/22 8:59:00 EDT, Dry Weight Start Date: 09/22/22 Status: Ordered Lidoderm 5% film 1 patch, Topically, Daily, remove patches after 12 hours NSAIDS contraindicated High dose tylenol contraindicated remove patches after 12 hours Nueropathy, # 30 patch, 5 Refills, Maintenance, 11/05/22 11:04:00 EDT, [facility], Partial klaudia... Start Date: 11/05/22 Status: Ordered Melatonin 3 mg oral tablet 1 tablet, By Mouth, Daily at bedtime, PRN NEEDED FOR INSOMNIA (PACKAGE IN TRAY)^1R4, # 60 tablet, 5 Refills, Maintenance, 06/12/22 18:11:00 EST, [facility], 60, TAKE 1 TABLET [...] 09/03/22 14:53:00 EDT, Route to Pharmacy Electronically, [facility], Partial fill upon patient request [...] 11/05/22 11:31:00 EDT, Route to Pharmacy Electronically, [facility], Partial fill upon patient request if the prescription is for a schedule II opioid drug... Start Date: 11/05/22 Status: Ordered Tab-A-Jesse oral tablet 1 tablet, By Mouth, Daily, # 90 tablet, 9 Refills, 08/07/22 12:27:00 EST, [id number], 28, 1tablet By Mouth Daily, 176, cm, 08/07/22 11:37:00 EST, Height, 79.8, kg, 07/31/22 22:40:00 EST, DryWeight Start Date: 08/07/22 Status: Ordered traZODone 50 mg oral tablet 2 tablets, By Mouth, Daily at bedtime, # 60 each, Refills 5, Tot. Refills 5, Maintenance, 09/03/22 17:13:00 EDT, Route to Pharmacy Electronically, [facility], 169, cm, 09/03/22 14:21:00 EDT, [...] 03/13/22 8:37:00 EDT, Route to Pharmacy Electronically, [facility], 175, cm, 01/06/22 10:34:00 EDT, Height, 78.3, kg, 12/26/2218:05:00 EDT, Dry Weight Start Date: 03/13/22 Status: Ordered Vitamin B6 50 mg oral tablet 1, tablet, By Mouth, Daily, R1., # 90 tablet, Refills 4, Maintenance, 11/16/22 13:39:00 EDT, Route to Pharmacy Electronically, [facility], 175, cm, 11/13/22 10:42:00 EDT, Height, 88.9, kg, 10/21/22 20:41:00 EDT, Dry Weight Start Date: 11/16/22 Status: Ordered Voltaren 1% topical gel 1 application, Topically, 4 times a day, PRN for pain, # 100 Gm, 0 Refills, Maintenance, 11/13/22 11:22:00 EDT, Gel, [facility], Partial fill upon patient request [...] tablet, 3 Refills, Maintenance, 10/01/22 15:19:00 EDT, [facility], 176, cm, 09/07/22 8:56:00 EDT, [...] oldest [Reference Range]: 1 Height 175 cm (11/13/22 10:42 AM) Weight 77.4 kg (11/13/22 10:42 AM) Oxygen Saturation [94-100 %] 98 % (11/13/22 10:42 AM) Pulse Rate [55-90 bpm] 97 bpm *H* (11/13/22 10:42 AM) Body Mass Index [18.5-24.99 kg/m2] 25.27 kg/m2 *H* (11/13/22 10:42 AM) Blood Pressure [90-138/55-84 mm Hg] 131/ 75mm Hg (11/13/22 10:42 AM) Mode of Delivery (Oxygen) Room air (11/13/22 10:42 AM) Blood pressure sites Arm, right (11/13/22 10:42 AM) Weight Obtained Via Standing scale (11/13/22 10:42 AM) Social History Social History Type Response Smoking Status 10 or more cigarette s (1/2 pack or more)/day in last 30 days entered on: 02/04/19 Sex Note * Fartun Friedman: PERFORM, SIGN, VERIFY Event Display: Patient Education/Instruction Authored Date: [id number] [facility] *[facility] Clinical Summary Name GEMA CABEZAS Age 47 Years 1975 PCP Jany Baig DO PCP Visit Date 11/13/2022 10:23:00 Additional Instructions: Scheduled Appointments?? Future Appointments ?*[facility] ?[address]??[place],??[place],??[address] ?Phone:??--?Fax:??-- ?Appt. Date:??12/03/2022?11:40 AM ?Scheduled Provider:??Jany Baig DO ?[facility] ?[address]??[place],??[place],??[address] ?Phone:??[phone]?Fax:??-- ?Appt. Date:??12/04/2022?12:45 PM ?Scheduled Provider:??[facility] ?[facility] ?[address] ?[facility],??[place],??[address] ?Phone:??[phone]?Fax:??-- ?Appt. Date:??02/05/2023?9:00 AM ?Scheduled Provider:??[id number] Follow-Up Instructions ?? Diagnosis Other specified urinary incontinence Medications: Please continue your medications until treatment is completed or stopped by your provider. Discuss any questions related to medications with your provider. New Medications [facility] [address] [place] [phone], [phone] Diclofenac Topical (Voltaren 1% topical gel) 1 sydnie Topically 4 times a day as needed for pain. Refills: 0. Next Dose: Medications to Continue Taking That Have Changed - - Durable Medical Equipment (Diapers) Aduld Adjustable Pullups Sz L/XL use 6 daily per 6 wk period RAFI 99 mo n39.48. Refills: 11. Next Dose: - Durable Medical Equipment (Disposable Underpads n39.498) 2 daily per 6 wk period. Refills: 11. Next Dose: - Durable Medical Equipment (Urinal) Dx: Cirrhoisis, ambulatory dysfunction, incontinency. Refills:3. Next Dose: These medications were not printed or sent to your pharmacy - Durable Medical Equipment (Compression Stockings) surgical, calf length 20-30 mm Hg M79.89 M79.606. Refills: 2. Next Dose: - Durable Medical Equipment (R aircast ankle-stirrup support brace) Dx: R inversion ankle sprain s93.409a. Refills: 0. Next Dose: - Durable Medical Equipment (Walker) 2 wheeled Walker. Dx: Falls, gait abnormality. Refills: 0. Next Dose: Medications to Continue with No Changes These medications were not printed or sent [...] Oral Daily. ^1R1.. Refills: 0. Next Dose: Fluticasone Nasal (fluticasone [...] every other day. Refills: 0. Next Dose: Gabapentin (gabapentin 300 mg oral capsule) 1 capsule Oral Daily at Bedtime for 90 Days. note dose/frequency change. Refills: 4. Next Dose: HydrOXYzine (hydrOXYzine hydrochloride 10 mg oral tablet) 2 tab(s) Oral twice a day as needed NEEDED FOR ANXIETY (VIAL). Refills: 3. Next Dose: Lactulose (lactulose 10 gm/15 ml oral syrup) 15 Milliliter Oral twice a day. Refills: 6. Next Dose: Lidocaine Topical (Lidoderm 5% film) 1 patch Topically Daily. remove patches after 12 hours NSAIDS contraindicated High dose tylenol contraindicated remove patches after 12 hours Nueropathy. Refills: 5. Next Dose: Melatonin (Melatonin 3 mg oral [...] oral tablet) 1 tab(s) Oral Daily. Refills: 5. Next Dose: Thiamine (Vitamin B1 [...] ibuprofen Medications Given This Visit Future Orders ?XR Hip w/Pelvis 2-3 View Right? Order Date:11/13/22?- Complete on or after?11/13/22 Vital Signs Height 175 cm Weight 77.4 kg BMI 25.27 kg/m2 Blood Pressure 131 mm Hg/75 mm Hg Temperature Pulse Rate 97 bpm Respiratory Rate 02 Sat Mode of Delivery 98 %/Room air You can now view a summary of your hospital visit from the comfort of your home through a free online portal called [employer]. [employer] is a website that allows you to securely view your medical information including discharge summary, medications and follow-up visits. ??You can alsosend a secure electronic message to your doctor???s office to request appointments, renew medications or just ask a question. You can enroll at [email or web address] or register during your next office [...] primary care provider, you may find a [facility] provider by calling [facility] [employer] at [phone]. For information about the plan of care [...] Team Personnel Name: Alexandra Colmenares RN Position: [facility] ED RN W/OE and Tasks Member Role: Primary Care Nurse Name: Garima Manzano RN Position: [facility] RN Member Role: Primary Care Nurse Name: Malgorzata Marinelli RN Position: [facility] RN Member Role: Primary Care Nurse Name: Joyce Roach RN Position: [facility] RN Member Role: Primary Care Nurse Name: Mary Suazo RN Position: [facility] RN Member Role: Primary Care Nurse Name: Andres Pressley RN Position: [facility] RN Member Role: Primary Care Nurse Name: Jany Baig DO Position: [facility] Physician - Primary Care Member Role: PCP Address: Address: [address] [place] [address] Adult [facility] Pediatric [address] Name: Neida Ballard RN Position: [facility] RN Member Role: Primary Care Nurse Name: Kaye Payne RN Position: [facility] RN Member Role: Primary Care Nurse Name: Garima Hutchinson Position: [facility] RN Member Role: Primary Care Nurse Name: Malgorzata Austin Position: [facility] RN Member Role: Primary Care Nurse Name: Ibeth Adams RN Position: [facility] RN Member Role: Primary Care Nurse Name: Torrie Hernandez RN Position: [facility] OB RN Member Role: Primary Care Nurse Name: Gretchen Knutson RN Position: [facility] SN RN Member Role: Primary Care Nurse Name: Aislinn Mckee RN Position: [facility] RN Member Role: Primary Care Nurse Name: Ashley Mcelroy Position: [facility] RN Member Role: Primary Care Nurse Name: Cody Garcia Position: [facility] Associate Professional Member Role: [employer] Provider Address: Address: [address] [place] [address]- Name: Ge Covarrubias RN Position: [facility] RN Member Role: Primary Care Nurse Name: Orin Elmore RN Position: [facility] ED RN W/OE and Tasks Member Role: Primary Care Nurse Name: Noe LOUIE, Allegra Elliott Position: [facility] AMB Nurse Member Role: Primary Care Nurse Name: Shayan Pandya MD Position: [facility] Renal MD Member Role: [employer] Physician Address: Address: [address] [place] [address] [address] [facility], [place] [address]- Name: Darlene Rodrigez RN Position: [facility] RN Member Role: Primary Care Nurse Name: Kwan Mills RN Position: [facility] RN Member Role: Primary Care Nurse Name: Dolores Can RN Position: [facility] RN Member Role: Primary Care Nurse Name: Kim Rendon RN Position: [facility] RN Member Role: Primary Care Nurse Name: Monica Rowell RN Position: [facility] RN Member Role: Primary Care Nurse Name: Jimi Fitzpatrick RN Position: [facility] RN Member Role: Primary Care Nurse Care Team Related Persons Name: MARLEN CABEZAS Address: home [address] [place] [id number] Name: MARLEN CABEZAS Address: home [address] [place] [address] Name: NICK CABEZAS Name: GEMA CABEZAS Address: home [address] [place] [id number]
--- OUTSIDE RECORDS SUMMARY | 2023-12-15 21:00 | XMS_ITS | Continuity of Care Document ---
Author Organization [facility] ter Address [address] [place] [address]- Care Team Providers Care Branch Officer Name Role Phone Jany Baig DO Primary Care Physician Encounter [facility] Date(s): 11/24/20 - 11/24/[address] [address]- Encounter Diagnosis Fall(Final) - 11/24/20 Alcohol intoxication(Final) - 11/24/20 Discharge Disposition: A-D/C Home Attending Physician: Kaci Willard MD Admitting Physician: Kaci Willard MD Referring Physician: Not on Staff, Referring [...] n 1Admin Note: #2 2Result Comment: [04/29/2017] [id number] 3Admin Note: FLUARIX 4Admin Note: 3 RDINJ Medications baclofen 10 mg oral tablet 1, tablet, By Mouth, 3 times a day, # 90 tablet, Refills 0, Tot. Refills 0, Maintenance, 11/22/20 16:13:00 EDT, Route to Pharmacy Electronically, [facility], 178, cm, 11/12/20 15:32:00 EDT, Height, 84.9, kg, 08/31/20 1:07:00 EDT, Dry Weight Start Date: 11/22/20 Status: Ordered chantix 1mg tablet 1 tablet, By Mouth, 2 times a day, # 56 tablet, 0 Refills, Acute, 11/22/20 16:13:00 EDT, [facility], 178, cm, 11/12/20 15:32:00 EDT, Height, 84.9, kg, 08/31/20 1:07:00 EDT, Dry Weight Start Date: 11/22/20 Status: Ordered Co Q-10 100 mg oral capsule See Instructions, TAKE 1 CAPSULE BY MOUTH FOUR TIMES DAILY, # 120 capsule, 7 Refills, Maintenance, [facility], 178, cm, 10/22/20 13:17:00 EDT, Height, 84.9, kg, 08/31/20 1:07:00 EDT, Dry Weight Start Date: 11/01/20 Status: Ordered Co Q-10 100 mg oral capsule 1 capsule, By Mouth, 4 times a day, # 120 capsule, 11 Refills, Maintenance, 11/21/19 10:36:00 EDT, [facility] #[id number], 175, cm, 08/24/19 14:14:00 EDT, Height, 81.2, kg, 02/04/19 1:40:00 EDT, Dry Weight Start Date: 11/21/19 Stop Date: 11/15/20 Status: Ordered fluticasone 50 mcg/inh nasal spray See Instructions, SPRAY 1 SPRAY INTO EACH NOSTRIL TWICE A DAY, # 16 Gm, 5 Refills, 07/09/20 11:38:00 EST, [facility], 30, SPRAY 1 SPRAY INTO EACH NOSTRIL TWICE A DAY, 175, cm, 04/02/20 0:35:00 EDT, Height, 100, kg, 04/02/20 0:35:00 EDT, Dry We... Start Date: 07/09/20 Status: Ordered gabapentin 600 mg oral tablet 1 tablet, By Mouth, 4 times a day, # 120 tablet, 0 Refills, Maintenance, 11/22/20 16:13:00 EDT, [facility], 178, cm, 11/12/20 15:32:00 EDT, Height, 84.9, kg, 08/31/20 1:07:00 EDT, Dry Weight Start Date: 11/22/20 Status: Ordered hydrOXYzine hydrochloride 25 mg oral tablet 1 TO 2 TABLETS, By Mouth, 3 times a day, PRN NEEDED FOR ANXIETY (VIAL), # 60 tablet, 3 Refills, Maintenance, 10/07/20 16:49:00 EDT, [facility], 178, cm, 08/31/20 11:25:00 EDT, Height, 84.9, kg, 08/31/20 1:07:00 EDT, Dry Weight Start Date: 10/07/20 Status: Ordered Keppra 500 mg oral tablet 1 tablet = 500 mg, By Mouth, 2 times a day, # 14 tablet, 0 Refills, Maintenance, 11/01/20 11:59:00 EDT, Tablet, [facility], Partial fill upon patient [...] EDT, 12/01/19 16:37:00 EDT, Syrup, [facility], re sent from 10/04/17, 30... Start Date: 12/01/19 Stop Date: 11/25/20 Status: Ordered melatonin 3 mg oral tablet 1 tablet = 3 mg, By Mouth, Daily at bedtime, PRN for insomnia, # 60 tablet, 4 Refills, Maintenance,07/18/20 17:30:00 EST, Tablet, [facility], 175, cm, 04/02/20 0:35:00 EDT, [...] Maintenance, 10/06/19 15:57:00 EDT, Tablet, [facility], 175, cm, 08/24/19 14:14:00 EDT,Height, 81.2, kg, 02/04/19 1:40:00 EDT, Dry Weight Start Date: 10/06/19 Status: Ordered sertraline 50 mg oral tablet 1 tablet, By Mouth, Daily, TAKE ALONG WITH A 100MG TABLET to equal 150mg daily, # 90 tablet, 1 Refills, Maintenance, 10/06/19 15:57:00 EDT, [facility], 175, cm, 08/24/19 14:14:00 EDT, Height,81.2, kg, 02/04/19 1:40:00 EDT, Dry Weight Start Date: 10/06/19 Status: Ordered sildenafil 50 mg oral tablet 1 tablet = 50 mg, By Mouth, Daily, PRN erectile dysfunction, 1 hour before sexual activity, # 6 tablet, 5 Refills, Maintenance, 03/11/20 14:37:00 EDT, Tablet, [facility]acy #[id number], 175, cm, 08/24/19 14:14:00 EDT, Height, 81.2, kg, 02/04/19 1:40:00 EDT,... Start Date: 03/11/20 Status: Ordered Tab-A-Jesse oral tablet See Instructions, TAKE 1 TABLET BY MOUTH ONCE A DAY, # 30 tablet, 10 Refills, Maintenance, [facility], 28, TAKE 1 TABLET BY [...] 0 Refills, Maintenance, 10/22/20 17:52:00 EDT, Tablet, [facility]/pharmacy #[id number], Partial fill upon patient request [...] Details, Route to Pharmacy Electronically, [facility], 178, cm, 10/22/20... Start Date: 11/01/20 Status: Ordered Vitamin B1 100 mg oral tablet 1, tablet, By Mouth, Daily, # 90 tablet, Refills 2, Tot. Refills 0, Acute, 09/05/20 17:32:00 EDT, Route to Pharmacy Electronically, [facility], 178, cm, 08/31/20 11:25:00 EDT, Height, 84.9, kg, 08/31/20 1:07:00 EDT, Dry Weight Start Date: 09/05/20 Status: Ordered Xifaxan 550 mg oral tablet 1 tablet, By Mouth, 2 times a day, # 60 tablet, 0 Refills, Maintenance, 04/16/20 14:45:00 EST, [facility]/pharmacy #[id number], 175, cm, 04/02/20 0:35:00 EDT, [...] 3 Oxygen Saturation [94-100 %] 97 % (11/24/20 8:48 AM) 98 % (11/24/20 6:56 AM) 98 % (11/24/20 5:58 AM) Pulse Rate [55-90 bpm] 85 bpm (11/24/20 8:48 AM) 84 bpm (11/24/20 6:56 AM) 78 bpm (11/24/20 5:58 AM) Blood Pressure [90-138/55-84 mm Hg] 123/77mm Hg (11/24/20 8:48 AM) 124/84mm Hg (11/24/20 6:56 AM) 132/81mm Hg (11/24/20 5:58 AM) Respiratory Rate [16-30 br/min] 20 br/min (11/24/20 8:48 AM) 20 br/min (11/24/20 6:56 AM) 20 br/min (11/24/20 5:58 AM) Temperature [96.8-100.4 DegF] 98.1 DegF (11/24/20 8:48 AM) 98.7 DegF (11/24/20 1:04 AM) Mode of Delivery (Oxygen) Room air (11/24/20 8:48 AM) Blood pressure sites Arm, left (11/24/20 8:48 AM) Temperature Route Oral (11/24/20 8:48 AM) Oral (11/24/20 1:04 AM) Social History Social History Type Response Smoking Status 10 or more cigarette s (1/2 pack or more)/day in last 30 days entered on: 02/04/19 Sex
--- OUTSIDE RECORDS SUMMARY | 2023-12-15 21:00 | XMS_ITS | Continuity of Care Document ---
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 Name Role Phone Jany Baig DO Primary Care Physician [place] [facility] [place]23 [facility] [address] [place], [place] [address] Allergies, [...] 08/02/12 Give n 1Result Comment: [facility]: [id number] 2Result Comment: [04/29/2017] 64372-523-57 3Admin Note: FLUARIX 4Admin Note: 3 RDINJ 5Admin Note: #2 Medications acamprosate 333 mg oral delayed release tablet 2 tablet = 666 mg, By Mouth, 3 times a day, # 180 tablet, 1 Refills, Maintenance, 07/28/23 11:04:00EST, EC Tablet, [facility], Partial fill upon patient request if [...] tablet, 2 Refills, Maintenance, 07/28/23 11:06:00 EST, [facility], 175, cm, 07/28/23 9:11:00 EST, Height, 61.3, kg, 07/12/23 23:27:00 EST, Dry Weight Start Date: 07/28/23 Status: Ordered amLODIPine 5 mg oral tablet 1 tablet, By Mouth, Daily, ^1R1., # 30 tablet, 2 Refills, Maintenance, 06/02/23 8:00:00 EST, [facility], 175, cm, 03/22/23 6:50:00 EDT, [...] 07/28/23 11:10:00 EST, Route to Pharmacy Electronically, [facility], Partial fill upon patient request if [...] Gm, 12 Refills, Maintenance, 07/28/23 11:06:00 EST, [facility], 28, APPLY TOPICALLY TO AFFECTED AREA(S) [...] Gm, 1 Refills, Maintenance, 07/28/23 12:07:00 EST, [facility], 30, USE 1 SPRAY(S) INTO EACH [...] 07/28/23 12:08:00 EST, Route to Pharmacy Electronically, [facility], 175, cm, 07/28/23 9:11:00 EST, Height, 61.3, kg, 07/12/23 23:27:00 EST, Dry Weight Start Date: 07/28/23 Status: Ordered furosemide 20 mg oral tablet 20 mg, 1, tablet, By Mouth, Every other day, # 30 tablet, Refills 1, Tot. Refills 1, Maintenance, 07/28/23 12:08:00 EST, Route to Pharmacy Electronically, [facility], Partial fill upon patient request if the prescription is for a schedule II... Start Date: 07/28/23 Status: Ordered gabapentin 300 mg oral capsule 300 mg, 1, capsule, By Mouth, Daily at bedtime, note dose/frequency change, # 30 capsule, Refills 1, Tot. Refills 1, Maintenance, 07/28/23 12:09:00 EST, Route to Pharmacy Electronically, [facility], 175, cm, 07/28/23 9:11:00 EST, Height, [...] tablet, 3 Refills, Maintenance, 07/28/23 12:10:00 EST, [facility], 175, cm, 07/28/23 9:11:00 EST, Height, 61.3, kg,07/12/23 23:27:00 EST, Dry Weight Start Date: 07/28/23 Status: Ordered lactulose 10 gm/15 ml oral syrup 30 mL = 20 Gm, By Mouth, 3 times a day, for 30 days, # 2,700 mL, 2 Refills, Acute 10/26/23 12:13:00EDT, 07/28/23 12:13:00 EST, Syrup, [facility], Partial fill upon patient request if [...] 60 tablet, 11 Refills, Maintenance,07/28/23 12:09:00 EST, [facility], 175, cm, 07/28/23 9:11:00 EST, Height, [...] tablet, 5 Refills, Maintenance, 07/28/23 12:09:00 EST, [facility], 60, 1 tablet By Mouth Daily [...] 07/28/23 12:11:00 EST, Route to Pharmacy Electronically, [facility], 175, cm, 07/28/23 9:11:00EST, Height, 61.3, [...] 07/28/23 12:12:00 EST, Route to Pharmacy Electronically, [facility], 175, cm, 07/28/23 9:11:00 EST, Height, 61.3, kg, 07/12/23 23:27:00 EST, Dry Weight Start Date: 07/28/23 Status: Ordered spironolactone 25 mg oral tablet 1, tablet, By Mouth, Daily, ^1R2., # 30 tablet, Refills 5, Tot. Refills 5, Maintenance, 04/14/23 12:41:00 EDT, Route to Pharmacy Electronically, [facility], 175, cm, 03/22/23 6:50:00 EDT, Height, 77.5, kg, 03/20/23 11:30:00 EDT, Dry Weight Start Date: 04/14/23 Status: Ordered Tab-A-Jesse oral tablet 1 tablet, By Mouth, Daily, R1., # 30 tablet, 5 Refills, Maintenance, 05/06/23 19:16:00 EST, [facility], 30, TAKE 1 TABLET BY [...] 02/26/23 10:11:00 EDT, Route to Pharmacy Electronically, [facility], 175, cm, 12/03/22 11:50:00 EDT, Height,84, kg, 02/12/23 11:30:00 EDT, Dry Weight Start Date: 02/26/23 Status: Ordered traZODone 50 mg oral tablet 2, tablet, By Mouth, Daily at bedtime, ^2R4., # 60 tablet, Refills 5, Tot. Refills 5, Maintenance, 07/28/23 12:12:00 EST, Route to Pharmacy Electronically, [facility], 175, cm, 07/28/23 9:11:00 EST, Height, [...] 02/09/23 23:18:00 EDT, Route to Pharmacy Electronically, [facility], 175, cm, 12/03/22 11:50:00 EDT, Height, 88.9, kg, 10/21/22 20:41:00 EDT, Dry Weight Start Date: 02/09/23 Status: Ordered Vitamin B1 100 mg oral tablet 1, tablet, By Mouth, Daily, # 90 tablet, Refills 3, Tot. Refills 3, Maintenance, 07/28/23 12:12:00 EST, Route to Pharmacy Electronically, [facility], 175, cm, 07/28/23 9:11:00 EST, Height, 61.3, kg, 07/12/23 23:27:00 EST, Dry Weight Start Date: 07/28/23 Status: Ordered Vitamin B6 50 mg oral tablet 1, tablet, By Mouth, Daily, R1., # 90 tablet, Refills 4, Maintenance, 11/16/22 13:39:00 EDT, Route to Pharmacy Electronically, [facility], 175, cm, 11/13/22 10:42:00 EDT, Height, 88.9, kg, 10/21/22 20:41:00 EDT, Dry Weight Start Date: 11/16/22 Status: Ordered Vitamin B6 50 mg oral tablet 1, tablet, By Mouth, Daily, R1., # 90 tablet, Refills 4, Tot. Refills 4, Maintenance, 07/28/23 12:11:00 EST, Route to Pharmacy Electronically, [facility], 175, cm, 07/28/23 9:11:00 EST, Height, [...] each, 1 Refills, Maintenance, 07/28/23 14:33:00 EST, [facility], 175, cm, 07/28/23 9:11:00 EST, Height, [...] Care Member Role: PCP Address: Address: [address] [place] [address] [facility] [place] [address]- Name: Kaye Payne RN Position: [facility] RN Member Role: Primary Care Nurse Name: Garima Curry RN Position: [facility] RN Member Role: Primary Care Nurse Name: Malgorzata Austin Position: [facility] RN Member Role: Primary Care Nurse Name: Ibeth Adams RN Position: [facility] RN Member [...] Member Role: Lifetime Consulting Provider Address: Address: [address] [place] [id number]- Name: Paige Nascimento RN Position: [facility] RN Member Role: Primary Care Nurse Name: Ge Covarrubias RN Position: [facility] RN Member Role: Primary Care Nurse Name: Orin Elmore RN Position: [facility] ED RN W/OE and Tasks Member Role: Primary Care Nurse Name: Allegra Liu RN Position: [facility] SN RN Member Role: Primary Care Nurse Name: Shayan Pandya MD Position: [facility] Renal MD Member Role: Lifetime Consulting Physician Address: Address: [address] [facility] [facility], [place] [address]- Name: Kimberley Pittman RN [facility] [...] Persons Name: RAULITO MARLEN Address: [address] [place] [address] Name: MARLEN CABEZAS Address: [address] [place] [address] Name: NICK CABEZAS Name: GEMA CABEZAS Address: [address] [place] [address] Name: ELTON CHENG Address: home [address] [place] [id number]
--- OUTSIDE RECORDS SUMMARY | 2023-12-15 21:00 | XMS_ITS | Continuity of Care Document ---
Author Organization [facility] Address [address] [place] [address]- Care Team Providers Care Environmental Engineering Technician Name Role Phone Jany Baig DO Primary Care Physician ( [phone] Encounter [facility] [place] Date(s): 08/13/21 - 10/22/21 [facility] [address] [place], [place] [address] Attending Physician: Jany Baig DO Allergies, Adverse [...] (oldterm) 08/02/12 Give n 1Result Comment: [04/29/2017] 63122-303-17 2Admin Note: FLUARIX 3Admin Note: 3 RDINJ 4Admin Note: #2 Medications amLODIPine 5 mg oral tablet 5 mg, 1, tablet, By Mouth, Daily, # 30 tablet, Refills 5, Tot. Refills 5, Maintenance, 10/21/21 10:15:00 EDT, Route to Pharmacy Electronically, [email or web address], Partial fill upon patient request if the prescription is for a schedule II opioid drug.... Start Date: 10/21/21 Status: Ordered Co Q-10 100 mg oral capsule 1 capsule, By Mouth, 4 times a day, # 120 capsule, 6 Refills, [email or web address], 174, cm, 02/27/2115:17:00 EDT, Height, 81, kg, 02/27/21 14:06:00 EDT, Dry Weight Start Date: 07/08/21 Status: Ordered fluticasone 50 mcg/inh nasal spray See Instructions, USE 1 SPRAY INTO EACH NOSTRIL TWICE A DAY, # 16 Gm, 5 Refills, [email or web address], 30, USE 1 SPRAY INTO EACH NOSTRIL TWICE A DAY, 174, cm, 07/14/21 8:16:00 EST, Height, 81, kg, 02/27/21 14:06:00 EDT, Dry Weight Start Date: 08/04/21 Status: Ordered folic acid 1 mg oral tablet 1 mg, 1, tablet, By Mouth, Daily, # 30 tablet, Refills 11, Tot. Refills 11, Maintenance, 10/21/21 10:15:00 EDT, Route to Pharmacy Electronically, [facility], Partial fill upon patient requestif the prescription is for a schedule II opioid remedios... Start Date: 10/21/21 Stop Date: 10/16/22 Status: Ordered gabapentin 300 mg oral capsule 300 mg, 1, capsule, By Mouth, 3 times a day, # 90 capsule, Refills 3, Tot. Refills 3, Maintenance, 10/03/21 17:32:00 EDT, [id number] Partial fill upon patient request if the prescription is for a schedule II... Start Date: 10/03/21 Status: Ordered hydrOXYzine hydrochloride 25 mg oral tablet 1 TO 2 TABLETS, By Mouth, 3 times a day, PRN NEEDED FOR ANXIETY (VIAL), # 60 tablet, 0 Refills, [facility], 174, cm, 08/14/21 14:21:00 EST, Height, 81, kg, 02/27/21 14:06:00 EDT, Dry Weight Start Date: 08/18/21 Status: Ordered lactulose 10 gm/15 ml oral syrup See Instructions, TAKE 30ML BY MOUTH THREE TIMES DAILY NEEDED TO ACHEIVE 3-4 BOWL MOVEMENTS PER DAY, # 3,000 mL, 10 Refills, [facility], 30, TAKE 30ML BY MOUTH THREE TIMES DAILY NEEDED TO ACHEIVE 3-4 BOWL MOVEMENTS PER DAY, 174, cm, 02/12... Start Date: 07/02/21 Status: Ordered Lasix 40 mg oral tablet 40 mg, 1, tablet, By Mouth, 2 times a day, # 60 tablet, Refills 1, Tot. Refills 1, Maintenance, 10/21/21 10:15:00 EDT, Route to Pharmacy Electronically, [facility], Partial fill upon patient [...] 30 days, # 60 tablet, 0 Refills, Physician Stop 11/20/21 10:15:00 EDT, 10/21/21 10:15:00 EDT, [facility], 175, cm, 10/10/21 16:04:00 EDT, Height, 87, kg, 09/27/21 21:30:00 EDT, Dry Weight Start Date: 10/21/21 Stop Date: 11/20/21 Status: Ordered Melatonin 3 mg oral tablet 1 tablet, By Mouth, Daily at bedtime, PRN NEEDED FOR INSOMNIA (PACKAGE IN TRAY), # 60 tablet, 5 Refills, Maintenance, 06/02/21 16:17:00 EST, [facility], 28, 1 tablet By [...] 10/22/21 11:42:00 EDT, Route to Pharmacy Electronically, [facility], Partial fill upon patient request if the prescription is... Start Date: 10/22/21 Stop Date: 01/15/23 Status: Ordered rifAXIMin 550 mg oral tablet 1 tablet = 550 mg, By Mouth, 2 times a day, please contact GI for refills, # 60 tablet, 0 Refills, Maintenance, 10/21/21 10:15:00 EDT, Tablet, [facility], Partial fill upon patient request ifthe prescription is for a schedule II opioid drug.,... Start Date: 10/21/21 Stop Date: 11/20/21 Status: Ordered Tab-A-Jesse oral tablet 1 tablet, By Mouth, Daily, # 90 tablet, 9 Refills, [facility], 28, TAKE 1 TABLET BY MOUTH ONCE A DAY, 174, cm, 07/14/21 8:16:00 EST, Height, 81, kg, 02/27/21 14:06:00 EDT, Dry Weight Start Date: 07/22/21 Status: Ordered traZODone 50 mg oral tablet See Instructions, TAKE 1 TO 2 TABLETS BY MOUTH AT BEDTIME (ONE DOSE IN VIAL), # 60 tablet, Refills 0, Instructions Replace Required Details, Route to Pharmacy Electronically, [facility], 174,cm, 08/14/21 14:21:00 EST, Height, 81, kg, 02/27/21... Start Date: 08/18/21 Status: Ordered Vitamin B1 100 mg oral tablet 1, tablet, By Mouth, Daily, # 90 tablet, Refills 1, Route to Pharmacy Electronically, [facility], 174, cm, 02/27/21 15:17:00 EDT, [...]
--- OUTSIDE RECORDS SUMMARY | 2023-12-15 21:00 | XMS_ITS | Continuity of Care Document ---
Author Organization [facility] Address [address] [place] [address]- Care Team Providers Care Glass Or Mirror Inspector Name Role Phone Jany Baig DO Primary Care Physician Encounter [facility] [place] Date(s): 10/14/22 - 11/13/22 [facility] [address] [place], [place] [address] Allergies, Adverse Reactions, Alerts Substance [...] acel (oldterm) 08/02/12 Give n 1Result Comment: [facility]: [id number] 2Result Comment: [04/29/2017] 16084-678-00 3Admin Note: FLUARIX 4Admin Note: 3 RDINJ 5Admin Note: #2 Medications acamprosate 333 mg oral delayed release tablet 1 tablet = 333 mg, By Mouth, 3 times a day, # 42 tablet, 4 Refills, Maintenance, 11/05/22 11:31:00 EDT, EC Tablet, [facility], Partial fill upon patient request if the prescription is for a schedule II opioid drug., 175, cm, 11/05/22 10:21:00... Start Date: 11/05/22 Stop Date: 01/14/23 Status: Ordered amLODIPine 5 mg oral tablet 1 tablet, By Mouth, Daily, ^1R1., # 30 tablet, 2 Refills, Maintenance, 10/06/22 4:58:00 EDT, [facility], cm, 09/07/22 8:56:00 EDT, Height, 82.1, kg, 09/07/22 8:59:00 EDT, Dry Weight Start Date: 10/06/22 Status: Ordered baclofen 10 mg oral tablet See Instructions, TAKE 1 TABLET BY MOUTH THREE TIMES DAILY, # 90 tablet, Refills 0, Maintenance, 08/07/22 12:26:00 EST, Instructions Replace Required Details, [facility], 176, cm, 08/07/22 11:37:00 EST, Height... Start Date: 08/07/22 Status: Ordered calcium (as carbonate)-vitamin D 500 mg-400 intl units oral tablet 1 tablet, By Mouth, Daily, ^1R1., # 28 tablet, 0 Refills, Maintenance, 10/08/22 16:58:00 EDT, [facility], 28, TAKE ONE TABLET [...] capsule, 6 Refills, Maintenance, 08/07/22 12:13:00 EST, [facility], 176, cm, 08/07/22 11:37:00 [...] Gm, 11 Refills, Maintenance, 08/07/22 12:12:00 EST, [id number], 30, USE 1 SPRAY(S) INTO EACH NOSTRIL TWICE A DAY, 176, cm,08/07/22 11:37:00 EST, Height, 79.8, kg, 07/31/22 2... Start Date: 08/07/22 Status: Ordered folic acid 1 mg oral tablet 1, tablet, By Mouth, Daily, R1., # 30 tablet, Refills 5, Tot. Refills 5, Maintenance, 10/06/22 4:59:00 EDT, Route to Pharmacy Electronically, [facility], 176, cm, 09/07/22 8:56:00 EDT, Height, [...] 09/03/22 14:50:00 EDT, [facility], [facility], 169, cm, 09/03/22 14:21:00 EDT, Height, 69, kg, 08/16/22 1:04:00 EST, Dry Weight Start Date: 09/03/22 Status: Ordered gabapentin 300 mg oral capsule 300 mg, 1, capsule, By Mouth, Daily at bedtime, note dose/frequency change, # 90 capsule, Refills 4, Tot. Refills 4, Maintenance, 11/05/22 11:05:00 EDT, Route to Pharmacy Electronically, [facility], 175, cm, 11/05/22 10:21:00 EDT, Height, 88.9... Start Date: 11/05/22 Stop Date: 01/29/24 Status: Ordered hydrOXYzine hydrochloride 10 mg oral tablet 2 tablet, By Mouth, 2 times a day, PRN NEEDED FOR ANXIETY (VIAL), # 30 tablet, 3 Refills, Maintenance, 09/24/22 17:01:00 EDT, [facility], 176, cm, 09/07/22 8:56:00 EDT, Height, 82.1, kg, 09/07/22 8:59:00 EDT, Dry Weight Start Date: 09/24/22 Status: Ordered lactulose 10 gm/15 ml oral syrup 15 mL, By Mouth, 2 times a day, # 120 mL, 6 Refills, Maintenance, 09/22/22 12:15:00 EDT, [facility], 4, TAKE 15ML BY MOUTH TWO TIMES A DAY, 176, cm, 09/07/22 8:56:00 EDT, Height, 82.1, kg, 09/07/22 8:59:00 EDT, Dry Weight Start Date: 09/22/22 Status: Ordered Lidoderm 5% film 1 patch, Topically, Daily, remove patches after 12 hours NSAIDS contraindicated High dose tylenol contraindicated remove patches after 12 hours Nueropathy, # 30 patch, 5 Refills, Maintenance, 11/05/22 11:04:00 EDT, [facility], Partial klaudia... Start Date: 11/05/22 Status: Ordered Melatonin 3 mg oral tablet 1 tablet, By Mouth, Daily at bedtime, PRN NEEDED FOR INSOMNIA (PACKAGE IN TRAY)^1R4, # 60 tablet, 5 Refills, Maintenance, 06/12/22 18:11:00 EST, [facility], 60, TAKE 1 TABLET [...] 09/03/22 14:53:00 EDT, Route to Pharmacy Electronically, [facility], Partial fill upon patient request if the prescription is for a schedule II opioid drug... Start Date: 09/03/22 Stop Date: 03/02/23 Status: Ordered pyridoxine 50 mg oral tablet 50 mg, 1, tablet, By Mouth, Daily, for 90 days, # 90 tablet, Refills 4, Tot. Refills 4, Acute 01/15/23 11:42:00 EDT, 10/22/21 11:42:00 EDT, Route to Pharmacy Electronically, [facility], Partial fill upon patient request if [...] 11/05/22 11:31:00 EDT, Route to Pharmacy Electronically, [facility], Partial fill upon patient request if the prescription is for a schedule II opioid drug... Start Date: 11/05/22 Status: Ordered Tab-A-Jesse oral tablet 1 tablet, By Mouth, Daily, # 90 tablet, 9 Refills, 08/07/22 12:27:00 EST, [facility] #[id number], 28, 1tablet By Mouth Daily, 176, cm, 08/07/22 11:37:00 EST, Height, 79.8, kg, 07/31/22 22:40:00 EST, DryWeight Start Date: 08/07/22 Status: Ordered traZODone 50 mg oral tablet 2 tablets, By Mouth, Daily at bedtime, # 60 each, Refills 5, Tot. Refills 5, Maintenance, 09/03/22 17:13:00 EDT, Route to Pharmacy Electronically, [facility], 169, cm, 09/03/22 14:21:00 [...] 03/13/22 8:37:00 EDT, Route to Pharmacy Electronically, [facility], 175, cm, 01/06/22 10:34:00 EDT, Height, 78.3, kg, 12/26/2218:05:00 EDT, Dry Weight Start Date: 03/13/22 Status: Ordered Voltaren 1% topical gel 1 application, Topically, 4 times a day, PRN for pain, # 100 Gm, 0 Refills, Maintenance, 11/13/22 11:22:00 EDT, Gel, [facility], Partial fill upon patient [...] tablet, 3 Refills, Maintenance, 10/01/22 15:19:00 EDT, [facility], 176, cm, 09/07/22 8:56:00 EDT, Height, [...] Team Personnel Name: Alexandra Colmenares RN Position: [facility] ED RN W/OE and Tasks Member Role: Primary Care Nurse Name: Garima Manzano RN Position: S RN Member Role: Primary Care Nurse Name: Malgorzata Marinelli RN Position: [facility] RN Member Role: Primary Care Nurse Name: Joyce Roach RN Position: [facility] RN Member Role: Primary Care Nurse Name: Mary Suazo RN Position: [facility] RN Member Role: Primary Care Nurse Name: Andres Pressley RN Position: [facility] RN Member Role: Primary Care Nurse Name: Jany Baig DO Position: [facility] Physician - Primary Care Member Role: PCP Address: Address: [address] [place] [address] Adult & [place] [address]- Name: Neida Ballard RN Position: [facility] RN Member Role: Primary Care Nurse Name: Kaye Payne RN Position: [facility] RN Member Role: Primary Care Nurse Name: Garima Hutchinson Position: [facility] RN Member Role: Primary Care Nurse Name: Malgorzata Austin Position: [facility] RN Member Role: Primary Care Nurse Name: Ibeth Adams RN Position: [facility] RN Member Role: Primary Care Nurse Name: Torrie Hernandez RN Position: [facility] OB RN Member Role: Primary Care Nurse Name: Gretchen Knutson RN Position: [facility] SN RN Member Role: Primary Care Nurse Name: Aislinn Mckee RN Position: [facility] RN Member Role: Primary Care Nurse Name: Ashley Mcelroy Position: [facility] RN Member Role: Primary Care Nurse Name: Cody Garcia Position: [facility] Associate Professional Member Role: Lifetime Consulting Provider Address: Address: [address] [place] [address] Name: Ge Covarrubias RN Position: [facility] RN Member Role: Primary Care Nurse Name: Orin Elmore RN Position: [facility] ED RN W/OE and Tasks Member Role: Primary Care Nurse Name: Allegra Liu RN Position: [facility] AMB Nurse Member Role: Primary Care Nurse Name: Shayan Pandya MD Position: [facility] Renal MD Member Role: Lifetime Consulting Physician Address: Address: [address] [place] [address] [address] [facility] [place] [address]- Name: Darlene Rodrigez RN Position: [facility] RN Member Role: Primary Care Nurse Name: Kwan Mills RN Position: [facility] RN Member Role: Primary Care Nurse Name: Dolores Can RN Position: [facility] RN Member Role: Primary Care Nurse Name: Kim Rendon RN Position: [facility] RN Member Role: Primary Care Nurse Name: Monica Rowell RN Position: [facility] RN Member Role: Primary Care Nurse Name: Jimi Fitzpatrick RN Position: [facility] RN Member Role: Primary Care Nurse Care Team Related Persons Name: MARLEN CABEZAS Address: [place] [address] Name: MARLEN CABEZAS Address: [place] [address] Name: NICK CABEZAS Name: GEMA CABEZAS Address: [place] [address]
--- OUTSIDE RECORDS SUMMARY | 2023-12-15 21:00 | XMS_ITS | Continuity of Care Document ---
Author Organization [facility] Address [address] [place] [address]- Care Team Providers Care Program Project Analyst Name Role Phone Jany Baig DO Primary Care Physician Encounter [facility] Date(s): 11/06/22 - 12/06/22 [facility] [address] [place], [place] [address] Allergies, Adverse Reactions, Alerts Substance Reaction [...] n 1Result Comment: [facility]: [id number] 2Result Comment: [04/29/2017] 53369-558-15 3Admin Note: FLUARIX 4Admin Note: 3 RDINJ 5Admin Note: #2 Medications acamprosate 333 mg oral delayed release tablet 1 tablet = 333 mg, By Mouth, 3 times a day, # 42 tablet, 4 Refills, Maintenance, 11/05/22 11:31:00 EDT, [facility] upon patient request if the prescription is for a schedule II opioid drug., 175, cm, 11/05/22 10:21:00... Start Date: 11/05/22 Stop Date: 01/14/23 Status: Ordered amLODIPine 5 mg oral tablet 1 tablet, By Mouth, Daily, ^1R1., # 30 tablet, 2 Refills, Maintenance, 10/06/22 4:58:00 EDT, [facility], 176, cm, 09/07/22 8:56:00 EDT, Height, 82.1, kg, 09/07/22 8:59:00 EDT, Dry Weight Start Date: 10/06/22 Status: Ordered baclofen 10 mg oral tablet See Instructions, TAKE 1 TABLET BY MOUTH THREE TIMES DAILY, # 90 tablet, Refills 0, Tot. Refills 0,Maintenance, 12/01/22 16:12:00 EDT, Instructions Replace Required Details, [facility], [facility], 175, cm, 11/13/22 10:4... Start Date: 12/01/22 Status: Ordered calcium (as carbonate)-vitamin D 500 mg-400 intl units oral tablet 1 tablet, By Mouth, Daily, ^1R1., # 28 tablet, 0 Refills, Maintenance, 12/01/22 16:12:00 EDT, [facility], 28, 1 tablet [...] 6 Refills, Maintenance, 12/03/22 12:13:00 EDT, [facility], 175, cm, [...] Gm, 11 Refills, Maintenance, 08/07/22 12:12:00 EST, [facility]/pharmacy #[id number], 30, USE 1 SPRAY(S) INTO EACH NOSTRIL TWICE A DAY, 176, cm,08/07/22 11:37:00 EST, Height, 79.8, kg, 07/31/22 2... Start Date: 08/07/22 Status: Ordered folic acid 1 mg oral tablet 1, tablet, By Mouth, Daily, R1., # 30 tablet, Refills 5, Tot. Refills 5, Maintenance, 10/06/22 4:59:00 EDT, Route to Pharmacy Electronically, [facility], 176, cm, 09/07/22 8:56:00 EDT, Height, [...] 09/03/22 14:50:00 EDT, Route to Pharmacy Electronically, [facility], 169, cm, 09/03/22 14:21:00 EDT, Height, 69, kg, 08/16/22 1:04:00 EST, Dry Weight Start Date: 09/03/22 Status: Ordered gabapentin 300 mg oral capsule 300 mg, 1, capsule, By Mouth, Daily at bedtime, note dose/frequency change, # 90 capsule, Refills 4, Tot. Refills 4, Maintenance, 11/05/22 11:05:00 EDT, Route to Pharmacy Electronically, [facility], 175, cm, 11/05/22 10:21:00 EDT, Height, 88.9... Start Date: 11/05/22 Stop Date: 01/29/24 Status: Ordered hydrOXYzine hydrochloride 10 mg oral tablet 2 tablet, By Mouth, 2 times a day, PRN NEEDED FOR ANXIETY (VIAL), # 30 tablet, 3 Refills, Maintenance, 09/24/22 17:01:00 EDT, [facility], 176, cm, 09/07/22 8:56:00 EDT, Height, 82.1, kg, 09/07/22 8:59:00 EDT, Dry Weight Start Date: 09/24/22 Status: Ordered lactulose 10 gm/15 ml oral syrup 15 mL, By Mouth, 2 times a day, # 120 mL, 6 Refills, Maintenance, 09/22/22 12:15:00 EDT, [facility], 4, TAKE [...] patch, 5 Refills, Maintenance, 11/05/22 11:04:00 EDT, [facility], Partial klaudia... Start Date: 11/05/22 [...] 09/03/22 14:53:00 EDT, Route to Pharmacy Electronically, [facility], Partial fill upon patient request if [...] 11/05/22 11:31:00 EDT, Route to Pharmacy Electronically, [facility], Partial fill upon patient request if the prescription is for a schedule II opioid drug... Start Date: 11/05/22 Status: Ordered Tab-A-Jesse oral tablet 1 tablet, By Mouth, Daily, # 90 tablet, 1 Refills, 12/01/22 12:59:00 EDT, [facility], 28, 1tablet By Mouth Daily, 175, cm, 11/13/22 10:42:00 EDT, Height, 88.9, kg, 10/21/22 20:41:00 EDT, DryWeight Start Date: 12/01/22 Status: Ordered traZODone 50 mg oral tablet 2 tablets, By Mouth, Daily at bedtime, # 60 each, Refills 5, Tot. Refills 5, Maintenance, 09/03/22 17:13:00 EDT, Route to Pharmacy Electronically, [facility], 169, cm, 09/03/22 14:21:00 EDT, Height, [...] 03/13/22 8:37:00 EDT, Route to Pharmacy Electronically, [facility], 175, cm, 01/06/22 10:34:00 EDT, Height, 78.3, kg, 12/26/2218:05:00 EDT, Dry Weight Start Date: 03/13/22 Status: Ordered Vitamin B6 50 mg oral tablet 1, tablet, By Mouth, Daily, R1., # 90 tablet, Refills 4, Maintenance, 11/16/22 13:39:00 EDT, Route to Pharmacy Electronically, [facility], 175, cm, 11/13/22 10:42:00 EDT, Height, 88.9, kg, 10/21/22 20:41:00 EDT, Dry Weight Start Date: 11/16/22 Status: Ordered Voltaren 1% topical gel 1 application, Topically, 4 times a day, PRN for pain, # 100 Gm, 0 Refills, Maintenance, 12/01/22 16:12:00 EDT, Gel, [facility], Partial fill upon patient request if [...] tablet, 3 Refills, Maintenance, 10/01/22 15:19:00 EDT, [facility], 176, cm, 09/07/22 8:56:00 EDT, Height, [...] Team Personnel Name: Alexandra Colmenares RN Position: [facility] ED RN W/OE and Tasks Member Role: Primary Care Nurse Name: Garima Manzano RN Position: [facility] RN Member Role: Primary Care Nurse Name: Malgorzata Marinelli RN Position: [facility] RN Member Role: Primary Care Nurse Name: Joyce Roach RN Position: [facility] RN Member Role: Primary Care Nurse Name: Mary Suazo RN Position: [facility] RN Member Role: Primary Care Nurse Name: Andres Pressley RN Position: [facility] RN Member Role: Primary Care Nurse Name: Jany Baig DO Position: [facility] Physician - Primary Care Member Role: PCP Address: Address: [address] [place] [address] Adult [facility] [place] [address]- Name: Neida Ballard RN Position: [facility] RN Member Role: Primary Care Nurse Name: Kaye Payne RN [facility] Role: Lifetime Consulting Provider Address: Address: [address] [place] [address]- Name: Ge Covarrubias RN [facility] Role: Lifetime Consulting Physician Address: Address: [address] [place] [address] [address] [facility] [place] [address]- Name: Darlene Rodrigez RN Position: [facility] RN Member Role: Primary Care Nurse Name: Kwan Mills RN Position: S RN Member Role: Primary Care Nurse Name: Dolores Can RN Position: [facility] RN Member Role: Primary Care Nurse Name: Kim Rendon RN Position: [facility] RN Member Role: Primary Care Nurse Name: Monica Rowell RN Position: [facility] RN Member Role: Primary Care Nurse Name: Jimi Fitzpatrick RN Position: [facility] RN Member Role: Primary Care Nurse Care Team Related Persons Name: MARLEN CABEZAS Address: [place] [address] Name: MARLEN CABEZAS Address: [place] [address] Name: NICK CABEZAS Name: GEMA CABEZAS Address: [place] [address]
--- OUTSIDE RECORDS SUMMARY | 2023-12-15 21:00 | XMS_ITS | Continuity of Care Document ---
Author Organization [facility] Address [address] [place] [address]- Care Team Providers Care Head Baker Name Role Phone Jany Baig DO Primary Care Physician Encounter [facility] Date(s): 03/11/23 - 04/10/23 [facility] [address] [place] [id number]- Attending Physician: Venice Salmon Admitting Physician: Venice [...] (oldterm) 08/02/12 Give n 1Result Comment: [facility]: [id number] 2Result Comment: [04/29/2017] [id number] 3Admin Note: FLUARIX 4Admin Note: 3 RDINJ 5Admin Note: #2 Medications acamprosate 333 mg oral delayed release tablet 1 tablet = 333 mg, By Mouth, 3 times a day, # 42 tablet, 4 Refills, Maintenance, 11/05/22 11:31:00 EDT, EC Tablet, [facility], Partial fill upon patient request if the prescription is for a schedule II opioid drug., 175, cm, 11/05/22 10:21:00... Start Date: 11/05/22 Stop Date: 01/14/23 Status: Ordered amLODIPine 5 mg oral tablet 1 tablet, By Mouth, Daily, ^1R1., # 30 tablet, 5 Refills, Maintenance, 12/22/22 7:20:00 EDT, [facility], 175, [...] Electronically, [facility], 175, cm... Start Date: 01/14/23 Status: Ordered calcium (as carbonate)-vitamin D 500 mg-400 intl units oral tablet 1 tablet, By Mouth, Daily, ^1R1., # 28 tablet, 0 Refills, Maintenance, 12/01/22 16:12:00 EDT, [facility], 28, 1 tablet By Mouth Daily,Instr:^1R1., [...] capsule, 6 Refills, Maintenance, 12/03/22 12:13:00 EDT, [facility], 175, cm, 12/03/22 11:50:00 EDT, Height, [...] Gm, 12 Refills, Maintenance, 03/24/23 10:52:00 EDT, [facility], 28, APPLY TOPICALLY TO AFFECTED AREA(S) [...] 05/03/23 12:01:00 EST, 03/22/23 12:01:00 EDT, Tablet, [facility]/pharmacy #[id number], Partial fill [...] Gm, 11 Refills, Maintenance, 08/07/22 12:12:00 EST, [facility]/pharmacy #[id number], 30, USE 1 SPRAY(S) INTO EACH NOSTRIL TWICE A DAY, 176, cm,08/07/22 11:37:00 EST, Height, 79.8, kg, 07/31/22 2... Start Date: 08/07/22 Status: Ordered folic acid 1 mg oral tablet 1, tablet, By Mouth, Daily, ^1R1., # 30 tablet, Refills 5, Maintenance, 03/20/23 16:22:00 EDT, [facility], 175, cm, 03/20/23 15:31:00 EDT, Height, 77.5, kg, 03/20/23 11:30:00 EDT, Dry Weight Start Date: 03/20/23 Status: Ordered furosemide 20 mg oral tablet 20 mg, 1, tablet, By Mouth, Every other day, # 30 tablet, Refills 3, Tot. Refills 3, Maintenance, 01/28/23 12:31:00 EDT, Route to Pharmacy Electronically, [facility], Partial fill upon patient request if the prescription is for a schedule II o... Start Date: 01/28/23 Status: Ordered gabapentin 300 mg oral capsule 300 mg, 1, capsule, By Mouth, Daily at bedtime, note dose/frequency change, # 90 capsule, Refills 4, Tot. Refills 4, Maintenance, 11/05/22 11:05:00 EDT, [facility], 175, cm, 11/05/22 10:21:00 EDT, Height, [...] mL, 6 Refills, Maintenance, 02/26/23 10:11:00 EDT, [facility], 4, TAKE 15ML BY MOUTH TWO TIMES A DAY, 175, cm, 12/03/22 11:50:00 EDT, Height, 84, kg, 02/12/23 11:30:00 EDT, Dry Weight Start Date: 02/26/23 Status: Ordered magnesium oxide 400 mg oral tablet See Instructions, TAKE 1 TABLET BY MOUTH TWICE A DAY^1R1,1R4, # 60 tablet, 11 Refills, Maintenance,01/28/23 12:31:00 EDT, [facility], 175, cm, 12/03/22 11:50:00 EDT, Height, 88.9, kg, 10/21/22 20:41:00 EDT, Dry Weight Start Date: 01/28/23 Status: Ordered Melatonin 3 mg oral tablet 1 tablet, By Mouth, Daily at bedtime, PRN NEEDED FOR INSOMNIA (PACKAGE IN TRAY)^1R4, # 60 tablet, 5 Refills, Maintenance, 06/12/22 18:11:00 EST, [facility], 60, TAKE 1 TABLET BY [...] 02/26/23 10:11:00 EDT, [facility] [...] 05/03/23 12:02:00 EST, 03/22/23 12:02:00 EDT, Capsule, [facility]/pharmacy #[id number], Partial fill upon patient request if the prescription is for a schedule II opioid drug., 175, c... Start Date: 03/22/23 Stop Date: 05/03/23 Status: Ordered spironolactone 25 mg oral tablet 25 mg, 1, tablet, By Mouth, Daily, # 30 tablet, Refills 5, Tot. Refills 5, Maintenance, 11/05/22 11:31:00 EDT, Route to Pharmacy Electronically, [facility], Partial fill upon patient request if the prescription is for a schedule II opioid drug... Start Date: 11/05/22 Status: Ordered Tab-A-Jesse oral tablet 1 tablet, By Mouth, Daily, # 90 tablet, 1 Refills, 12/01/22 12:59:00 EDT, [facility], 28, 1tablet By Mouth Daily, 175, cm, 11/13/22 10:42:00 EDT, Height, 88.9, kg, 10/21/22 20:41:00 EDT, DryWeight Start Date: 12/01/22 Status: Ordered traZODone 50 mg oral tablet 2, tablet, By Mouth, Daily at bedtime, ^2R4., # 60 tablet, Refills 5, Maintenance, 02/26/23 10:11:00 EDT, Route to Pharmacy Electronically, [facility], 175, cm, 12/03/22 11:50:00 EDT, Height,84, [...] 02/09/23 23:18:00 EDT, Route to Pharmacy Electronically, [facility], 175, cm, 12/03/22 11:50:00 EDT, Height, 88.9, kg, 10/21/22 20:41:00 EDT, Dry Weight Start Date: 02/09/23 Status: Ordered Vitamin B6 50 mg oral tablet 1, tablet, By Mouth, Daily, R1., # 90 tablet, Refills 4, Maintenance, 11/16/22 13:39:00 EDT, Route to Pharmacy Electronically, [facility], 175, cm, 11/13/22 10:42:00 EDT, Height, [...] tablet, 3 Refills, Maintenance, 02/26/23 10:11:00 EDT, [facility], 175, cm, 12/03/22 11:50:00 EDT, Height, [...] Team Personnel Name: Alexandra Colmenares RN Position: [facility] ED RN W/OE and Tasks Member Role: Primary Care Nurse Name: Garima Manzano RN Position: [facility] RN Member Role: Primary Care Nurse Name: Malgorzata Marinelli RN Position: [facility] RN Member Role: Primary Care Nurse Name: Joyce Roach RN Position: [facility] RN Member Role: Primary Care Nurse Name: Mary Suazo RN Position: [facility] RN Member Role: Primary Care Nurse Name: Andres Pressley RN Position: [facility] RN Member Role: Primary Care Nurse Name: Jany Baig DO Position: [facility] Physician - Primary Care Member Role: PCP Address: Address: [address] [place] [address] Adult & [place] [address]- Name: Kaye Payne RN Position: [facility] RN Member Role: Primary Care Nurse Name: Garima Hutchinson Position: [facility] RN Member Role: Primary Care Nurse Name: Malgorzata Austin Position: [facility] RN Member Role: Primary Care Nurse Name: Ibeth Adams RN Position: [facility] RN Member Role: Primary Care Nurse Name: Torrie Hernandez RN Position: [facility] OB RN Member Role: Primary Care Nurse Name: Gretchen Knutson RN Position: [facility] SN RN Member Role: Primary Care Nurse Name: Aislinn Mckee RN Position: [facility] RN Member Role: Primary Care Nurse Name: Ashley Mcelroy Position: [facility] RN Member Role: Primary Care Nurse Name: Ashok Kevin RN Position: [facility] RN Member Role: Primary Care Nurse Name: Cody Garcia Position: [facility] Associate Professional Member Role: Lifetime Consulting Provider Address: Address: [address] [place] [address]- Name: Paige Nascimento RN Position: [facility] RN Member Role: Primary Care Nurse Name: Ge Covarrubias RN Position: [facility] RN Member Role: Primary Care Nurse Name: Orin Elmore RN Position: [facility] ED RN W/OE and Tasks Member Role: Primary Care Nurse Name: Allegra Liu RN Position: [facility] AMB Nurse Member Role: Primary Care Nurse Name: Shayan Pandya MD Position: [facility] Renal MD Member Role: Lifetime Consulting Physician Address: Address: [address] [place] [address] [address] [facility], [place] [address]- Name: Darlene Rodrigez RN Position: [facility] RN Member Role: Primary Care Nurse Name: Kwan Mills RN Position: [facility] RN Member Role: Primary Care Nurse Name: Dolores Can RN Position: [facility] RN Member Role: Primary Care Nurse Name: Ingrid Verdugo RN Position: [facility] RN Member Role: Primary Care Nurse Name: Monica Rowell RN Position: [facility] RN Member Role: Primary Care Nurse Name: Jimi Fitzpatrick RN Position: [facility] RN Member Role: Primary Care Nurse Care Team Related Persons Name: DUCBRIANWU MARLEN Address: home [address] [place] [address] Name: MARLEN CABEZAS Address: home [address] [place] [address] Name: NICK CABEZAS Name: GEMA CABEZAS Address: home [address] [place] [address]
--- OUTSIDE RECORDS SUMMARY | 2023-12-15 21:00 | XMS_ITS | Continuity of Care Document ---
Author Organization [facility] Address [address] [place] [address]- Care Team Providers Care Respite Coordinator Name Role Phone Jany Baig DO Primary Care Physician [place] [facility] [place]): 05/07/23 - 06/06/23 [facility] [address] [place] [phone]- Allergies, Adverse Reactions, Alerts Substance Reaction Severity [...] n 1Result Comment: [facility]: [id number] 2Result Comment: [04/29/2017] [id number] 3Admin Note: FLUARIX 4Admin Note: 3 RDINJ 5Admin Note: #2 Medications acamprosate 333 mg oral delayed release tablet 1 tablet = 333 mg, By Mouth, 3 times a day, # 42 tablet, 4 Refills, Maintenance, 11/05/22 11:31:00 EDT, EC Tablet, [facility], Partial fill upon patient request if the prescription is for a schedule II opioid drug., 175, cm, 11/05/22 10:21:00... Start Date: 11/05/22 Stop Date: 01/14/23 Status: Ordered amLODIPine 5 mg oral tablet 1 tablet, By Mouth, Daily, ^1R1., # 30 tablet, 2 Refills, Maintenance, 06/02/23 8:00:00 EST, [facility], 175, cm, 03/22/23 6:50:00 EDT, Height, 77.5, kg, 03/20/23 11:30:00 EDT, Dry Weight Start Date: 06/02/23 Status: Ordered baclofen 10 mg oral tablet See Instructions, TAKE ONE TABLET BY MOUTH THREE TIMES A DAY ^1R1,1R2,1R4, # 90 tablet, Refills 5, Tot. Refills 5, Maintenance, 01/14/23 17:55:00 EDT, Instructions Replace Required Details, [facility], [facility], cm... Start Date: 01/14/23 Status: Ordered calcium (as carbonate)-vitamin D 500 mg-400 intl units oral tablet 1 tablet, By Mouth, Daily, ^1R1., # 28 tablet, 0 Refills, Maintenance, 12/01/22 16:12:00 EDT, [facility], 28, 1 tablet By Mouth Daily,Instr:^1R1., [...] capsule, 6 Refills, Maintenance, 12/03/22 12:13:00 EDT, [facility], 175, cm, 12/03/22 11:50:00 EDT, Height, [...] Gm, 12 Refills, Maintenance, 03/24/23 10:52:00 EDT, [facility], 28, APPLY TOPICALLY TO AFFECTED AREA(S) [...] 03/20/23 16:22:00 EDT, Route to Pharmacy Electronically, [facility], 175, cm, 03/20/23 15:31:00 EDT, Height, 77.5, kg, 03/20/23 11:30:00 EDT, Dry Weight Start Date: 03/20/23 Status: Ordered furosemide 20 mg oral tablet 20 mg, 1, tablet, By Mouth, Every other day, # 30 tablet, Refills 3, Tot. Refills 3, Maintenance, 01/28/23 12:31:00 EDT, Route to Pharmacy Electronically, [facility], Partial fill upon patient request if the prescription is for a schedule II o... Start Date: 01/28/23 Status: Ordered gabapentin 300 mg oral capsule 300 mg, 1, capsule, By Mouth, Daily at bedtime, note dose/frequency change, # 90 capsule, Refills 4, Tot. Refills 4, Maintenance, 11/05/22 11:05:00 EDT, Route to Pharmacy Electronically, [facility], 175, cm, 11/05/22 10:21:00 EDT, Height, 88.9... Start Date: 11/05/22 Stop Date: 01/29/24 Status: Ordered hydrOXYzine hydrochloride 10 mg oral tablet 2 tablet, By Mouth, 2 times a day, PRN NEEDED FOR ANXIETY (VIAL), # 30 tablet, 3 Refills, Maintenance, 04/16/23 16:41:00 EDT, [facility], 175, cm, 03/22/23 6:50:00 EDT, Height, 77.5, kg, 03/20/23 11:30:00 EDT, Dry Weight Start Date: 04/16/23 Status: Ordered lactulose 10 gm/15 ml oral syrup 15 mL, By Mouth, 2 times a day, # 120 mL, 6 Refills, Maintenance, 02/26/23 10:11:00 EDT, [facility], 4, TAKE 15ML BY MOUTH TWO TIMES A DAY, 175, cm, 12/03/22 11:50:00 EDT, Height, 84, kg, 02/12/23 11:30:00 EDT, Dry Weight Start Date: 02/26/23 Status: Ordered magnesium oxide 400 mg oral tablet See Instructions, TAKE 1 TABLET BY MOUTH TWICE A DAY^1R1,1R4, # 60 tablet, 11 Refills, Maintenance,01/28/23 12:31:00 EDT, [facility], 175, cm, 12/03/22 11:50:00 EDT, Height, 88.9, kg, 10/21/22 20:41:00 EDT, Dry Weight Start Date: 01/28/23 Status: Ordered Melatonin 3 mg oral tablet 1 tablet, By Mouth, Daily at bedtime, PRN NEEDED FOR INSOMNIA (PACKAGE IN TRAY)^1R4, # 60 tablet, 5 Refills, Maintenance, 04/16/23 16:41:00 EDT, [facility], 60, TAKE 1 TABLET BY [...] 02/26/23 10:11:00 EDT, Route to Pharmacy Electronically, [facility], 175, cm, 12/03/22 11:50:00 EDT, Height, [...] 04/14/23 12:41:00 EDT, Route to Pharmacy Electronically, [facility], 175, cm, 03/22/23 6:50:00 EDT, Height, 77.5, kg, 03/20/23 11:30:00 EDT, Dry Weight Start Date: 04/14/23 Status: Ordered Tab-A-Jesse oral tablet 1 tablet, By Mouth, Daily, R1., # 30 tablet, 5 Refills, Maintenance, 05/06/23 19:16:00 EST, [facility], 30, TAKE 1 TABLET BY MOUTH ONCE A DAY^1R1, 175, cm, 03/22/23 6:50:00 EDT, Height, 77.5,kg, 03/20/23 11:30:00 EDT, Dry Weight Start Date: 05/06/23 Status: Ordered traZODone 50 mg oral tablet 2, tablet, By Mouth, Daily at bedtime, ^2R4., # 60 tablet, Refills 5, Maintenance, 02/26/23 10:11:00 EDT, Route to Pharmacy Electronically, [facility], 175, cm, 12/03/22 11:50:00 EDT, Height,84, [...] 02/09/23 23:18:00 EDT, Route to Pharmacy Electronically, [facility], 175, cm, 12/03/22 11:50:00 EDT, Height, 88.9, kg, 10/21/22 20:41:00 EDT, Dry Weight Start Date: 02/09/23 Status: Ordered Vitamin B6 50 mg oral tablet 1, tablet, By Mouth, Daily, R1., # 90 tablet, Refills 4, Maintenance, 11/16/22 13:39:00 EDT, Route to Pharmacy Electronically, [facility], 175, cm, 11/13/22 10:42:00 EDT, Height, [...] tablet, 3 Refills, Maintenance, 02/26/23 10:11:00 EDT, [facility], 175, cm, 12/03/22 11:50:00 EDT, Height, [...] Joyce Roach RN Position: [facility] ED RN W/OE and Tasks Member Role: Primary Care Nurse Name: Mary Suazo RN Position: [facility] RN Member Role: Primary Care Nurse Name: Andres Pressley RN Position: [facility] ED RN W/OE and Tasks Member Role: Primary Care Nurse Name: Jany Baig DO Position: [facility] Physician - Primary Care Member Role: PCP Address: Address: [address] [place] [address] [facility] [address] Name: Kaye Payne RN Position: [facility] RN Member Role: Primary Care Nurse Name: Garima Hutchinson Position: [facility] RN Member Role: Primary Care Nurse Name: Malgorzata Austin Position: [facility] RN Member Role: Primary Care Nurse Name: Ibeth Adams RN Position: [facility] RN Member [...] Care Nurse Name: Ashok Kevin RN Position: [facility] RN Member Role: Primary Care Nurse Name: Cody Garcia Position: [facility] Associate Professional Member Role: Lifetime Consulting Provider Address: Address: [address] [place] [address] Name: Paige Nascimento RN Position: [facility] RN Member Role: Primary Care Nurse Name: Ge Covarrubias RN Position: [facility] RN Member Role: Primary Care Nurse Name: Orin Elmore RN Position: [facility] ED RN W/OE and Tasks Member Role: Primary Care Nurse Name: Allegra Liu RN Position: [facility] AMB Nurse Member Role: Primary Care Nurse Name: Shayan Pandya MD Position: [facility] Renal MD Member Role: [employer]etime Consulting Physician Address: Address: [address] [place] [address] [address] [facility] [place], [address] Name: Darlene Rodrigez RN Position: S RN [...] Care Nurse Name: Jimi Fitzpatrick RN Position: [facility] RN Member Role: Primary Care Nurse Care Team Related Persons Name: MARLEN CABEZAS Address: home [address] [place] [id number] Name: MARLEN CABEZAS Address: home [address] [place] [id number] Name: NICK CABEZAS Name: GEMA CABEZAS Address: home [address] [place] [address]
--- OUTSIDE RECORDS SUMMARY | 2023-12-15 21:01 | XMS_ITS | Continuity of Care Document ---
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 Refills 4, Maintenance, 02/16/20 17:55:00 EDT, Route to Pharmacy Electronically, [facility], 175, cm, 08/24/19 14:14:00EDT, Height, 81.2, kg, 02/04/19 1:40:00 EDT, Dry We... Start Date: 02/16/20 Stop Date: 07/15/20 Status: Ordered chantix 1mg tablet 1 tablet, By Mouth, 2 times a day, for 12 week(s), neeeds to schedule appt, # 56 tablet, 0 Refills,Acute 09/18/20 11:11:00 EDT, 06/26/20 11:11:00 EST, [facility], 175, cm, 04/02/20 0:35:00 EDT, Height, 100, kg, 04/02/20 0:35:00 EDT, Dry Weight Start Date: 06/26/20 Stop Date: 09/18/20 Status: Ordered chantix 1mg tablet 1 tablet, By Mouth, 2 times a day, for 12 week(s), # 56 tablet, 0 Refills, Acute, 05/21/20 12:54:00EST, [facility], 175, cm, 04/02/20 0:35:00 EDT, Height, 100, kg, 04/02/20 0:35:00 EDT, Dry Weight Start Date: 05/21/20 Stop Date: 08/13/20 Status: Ordered Co Q-10 100 mg oral capsule 1 capsule, By Mouth, 4 times a day, # 120 capsule, 11 Refills, Maintenance, 11/21/19 10:36:00 EDT, [facility] #[id number], 175, cm, 08/24/19 14:14:00 EDT, Height, 81.2, kg, 02/04/19 1:40:00 EDT, Dry Weight Start Date: 11/21/19 Stop Date: 11/15/20 Status: Ordered Engerix-B 20 mcg/mL intramuscular suspension = 20 mcg, Intramuscular, Every 30 days, rpt at 1 and 6 months, # 1 mL, 2 Refills, Maintenance, 11/02/19 9:02:00 EDT, Suspension, [facility]/pharmacy #[id number], 175, cm, 08/24/19 14:14:00 EDT, Height, 81.2, kg, 02/04/19 1:40:00 EDT, Dry Weight Start Date: 11/02/19 Status: Ordered fluticasone 50 mcg/inh nasal spray See Instructions, SPRAY 1 SPRAY INTO EACH NOSTRIL TWICE A DAY, # 16 Gm, 5 Refills, 01/26/20 9:52:00EDT, [facility], 30, SPRAY 1 SPRAY INTO EACH NOSTRIL TWICE A DAY, 175, cm, 08/24/19 14:14:00 EDT, Height, 81.2, kg, 02/04/19 1:40:00 EDT, Dry W... Start Date: 01/26/20 Status: Ordered gabapentin 600 mg oral tablet 1 tablet, By Mouth, 4 times a day, # 120 tablet, 2 Refills, Maintenance, 05/21/20 12:54:00 EST, [facility], 175, cm, 04/02/20 0:35:00 EDT, Height, 100, kg, 04/02/20 0:35:00 EDT, Dry Weight Start Date: 05/21/20 Status: Ordered hydrOXYzine hydrochloride 25 mg oral tablet 1 TO 2 TABLETS, By Mouth, 3 times a day, PRN NEEDED FOR ANXIETY (VIAL), # 60 tablet, 1 Refills, Acute, 05/21/20 12:54:00 EST, [facility], 175, cm, 04/02/20 0:35:00 EDT, [...] 16:37:00 EDT, 12/01/19 16:37:00 EDT, Syrup, [facility], re sent from 10/04/17, [...] tablet, 4 Refills, Maintenance,10/06/19 16:16:00 EDT, Tablet, [facility], 175, cm, 08/24/19 14:14:00 [...] 0 Refills, Maintenance, 04/16/20 14:45:00 EST, [facility]acy #[id number], 8, APPLY TOPICALLY THREE TIMES [...] Refills, Maintenance, 10/06/19 15:57:00 EDT, Tablet, [facility], 175, cm, 08/24/19 14:14:00 EDT,Height, 81.2, kg, 02/04/19 1:40:00 EDT, Dry Weight Start Date: 10/06/19 Status: Ordered sertraline 50 mg oral tablet 1 tablet, By Mouth, Daily, TAKE ALONG WITH A 100MG TABLET to equal 150mg daily, # 90 tablet, 1 Refills, Maintenance, 10/06/19 15:57:00 EDT, [facility], 175, cm, 08/24/19 14:14:00 EDT, Height,81.2, kg, 02/04/19 1:40:00 EDT, Dry Weight Start Date: 10/06/19 Status: Ordered sildenafil 50 mg oral tablet 1 tablet = 50 mg, By Mouth, Daily, PRN erectile dysfunction, 1 hour before sexual activity, # 6 tablet, 5 Refills, Maintenance, 03/11/20 14:37:00 EDT, Tablet, [facility] #[id number], 175, cm, 08/24/19 14:14:00 EDT, Height, 81.2, kg, 02/04/19 1:40:00 EDT,... Start Date: 03/11/20 Status: Ordered Tab-A-Jesse oral tablet 1 tablet, By Mouth, Daily, # 90 tablet, 1 Refills, Maintenance, 05/21/20 9:35:00 EST, [facility], 1 tablet By Mouth Daily, [...] 09/27/19 8:51:00 EDT, Route to Pharmacy Electronically, [facility], 175, cm, 08/24/19 14:14:00 EDT, Height, 81.2, kg, 02/04/19 1:40:00 EDT, Dry Weight Start Date: 09/27/19 Status: Ordered Xifaxan 550 mg oral tablet 1 tablet, By Mouth, 2 times a day, # 60 tablet, 0 Refills, Maintenance, 04/16/20 14:45:00 EST, [facility]acy #[id number], 175, cm, 04/02/20 0:35:00 EDT, [...]
--- OUTSIDE RECORDS SUMMARY | 2023-12-15 21:01 | XMS_ITS | Continuity of Care Document ---
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 Role Phone Jany Baig DO Primary Care Physician Encounter [facility] Date(s): 11/28/21 - 12/28/21 [facility] [address] [place] [address]- Allergies, Adverse Reactions, Alerts Substance Reaction Severity [...] (oldterm) 08/02/12 Give n 1Result Comment: [04/29/2017] [id number] 2Admin Note: FLUARIX 3Admin Note: 3 RDINJ 4Admin Note: #2 Medications acetaminophen 500 mg oral tablet See Instructions, PRN for pain, 1 tablet By Mouth up to 4 times a day, MAX 2 Gm per day, # 50 tablet, 1 Refills, Maintenance, 12/26/21 9:17:00 EDT, Tablet, [facility], Partial fill upon patient request if the prescription is for a schedule II... Start Date: 12/26/21 Status: Ordered amLODIPine 5 mg oral tablet 5 mg, 1, tablet, By Mouth, Daily, # 30 tablet, Refills 5, Tot. Refills 5, Maintenance, 10/21/21 10:15:00 EDT, Route to Pharmacy Electronically, [facility], Partial fill upon patient request if the prescription is for a schedule II opioid drug.... Start Date: 10/21/21 Status: Ordered Co Q-10 100 mg oral capsule 1 capsule, By Mouth, 4 times a day, # 120 capsule, 6 Refills, [facility], 174, cm, 02/27/2115:17:00 EDT, Height, 81, kg, 02/27/21 14:06:00 EDT, Dry Weight Start Date: 07/08/21 Status: Ordered fluticasone 50 mcg/inh nasal spray See Instructions, USE 1 SPRAY INTO EACH NOSTRIL TWICE A DAY, # 16 Gm, 5 Refills, [facility], 30, USE 1 SPRAY INTO EACH [...] Pharmacy Electronically, [facility], 170, cm, 11/12/21 10:02:00 EDT, Height, 78, kg, 11/04/21 12:03:00 EDT, Dry Weight Start Date: 11/25/21 Status: Ordered hydrOXYzine hydrochloride 25 mg oral tablet 1 TO 2 TABLETS, By Mouth, 3 times a day, PRN NEEDED FOR ANXIETY (VIAL), # 60 tablet, 0 Refills, [facility], 170, cm, 11/12/21 10:02:00 EDT, Height, 78, kg, 11/04/21 12:03:00 EDT, Dry Weight Start Date: 12/24/21 Status: Ordered lactulose 10 gm/15 ml oral [...] a day, # 60 tablet, 1 Refills, [facility], 170, cm, 11/12/21 10:02:00 [...] Stop Date: 04/19/22 Status: Ordered potassium chloride 40 mEq/15 mL oral liquid 15 mL = 40 mEq, By Mouth, Daily, # 450 mL, 0 Refills, Maintenance, 12/27/21 0:19:00 EDT, Liquid, [facility]/pharmacy #[id number], Partial fill upon patient request if the prescription is for a schedule II opioid drug., 175, cm, 12/26/21 19:05:00 EDT, Height, 78.3,... Start Date: 12/27/21 Status: Ordered pyridoxine 50 mg oral tablet 50 mg, 1, tablet, By Mouth, Daily, for 90 days, # 90 tablet, Refills 4, Tot. Refills 4, Acute 01/15/23 11:42:00 EDT, 10/22/21 11:42:00 EDT, Route to Pharmacy Electronically, [facility], Partial fill upon patient request if [...] [facility], 170, cm,... Start Date: 12/26/21 Status: Ordered Vitamin B1 100 mg oral tablet 1, tablet, By Mouth, Daily, # 90 tablet, Refills 0, [facility] Pharm[facility], [facility], 170, cm, 11/12/21 10:02:00 EDT, Height, 78, kg, 11/04/21 12:03:00 EDT, Dry Weight Start Date: 12/24/21 Status: Ordered Xifaxan 550 mg oral tablet 1 tablet, By Mouth, 2 times a day, # 60 tablet, 0 Refills, [facility], 170, cm, 11/12/21 10:02:00 [...]
--- OUTSIDE RECORDS SUMMARY | 2023-12-15 21:01 | XMS_ITS | Continuity of Care Document ---
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 Name Role Phone Jany Baig DO Primary Care Physician Encounter [facility] Date(s): 03/13/22 - 04/12/22 [facility] [address] [place] [address]- Allergies, Adverse Reactions, Alerts Substance Reaction Severity [...] 1Result Comment: [facility]: [id number] 2Result Comment: [04/29/2017] [id number] 3Admin Note: FLUARIX 4Admin Note: 3 RDINJ 5Admin Note: #2 Medications acetaminophen 500 mg oral tablet 1 tablet, By Mouth, 4 times a day, PRN NEEDED FOR PAIN, MAX 4, PER DAY (VIAL., # 50 tablet, 11 Refills, Maintenance, 03/13/22 8:37:00 EDT, [facility], 175, cm, 01/06/22 10:34:00 EDT, Height, 78.3, kg, 12/26/21 19:05:00 EDT, Dry Weight Start Date: 03/13/22 Status: Ordered amLODIPine 5 mg oral tablet 5 mg, 1, tablet, By Mouth, Daily, # 30 tablet, Refills 5, Tot. Refills 5, Maintenance, 10/21/21 10:15:00 EDT, Route to Pharmacy Electronically, [facility], Partial fill upon patient request if the prescription is for a schedule II opioid drug.... Start Date: 10/21/21 Status: Ordered Co Q-10 100 mg oral capsule 1 capsule, By Mouth, 4 times a day, # 120 capsule, 5 Refills, Maintenance, 04/09/22 15:55:00 EDT, [facility], 175, cm, 04/09/22 15:34:00 EDT, [...] Gm, 5 Refills, Maintenance, 02/18/22 10:02:00 EDT, [facility], 30, USE 1 SPRAY(S) INTO EACH NOSTRIL TWICE A DAY, 175, cm, 01/06/22 10:34:00 EDT, Height, 78.3, kg, 12/26/21 19... Start Date: 02/18/22 Status: Ordered folic acid 1 mg oral tablet 1 mg, 1, tablet, By Mouth, Daily, # 90 tablet, Refills 4, Tot. Refills 4, Maintenance, 10/27/21 10:40:00 EDT, Route to Pharmacy Electronically, [facility], Partial fill upon patient request if the prescription is for a schedule II opioid drug.... Start Date: 10/27/21 Stop Date: 01/20/23 Status: Ordered furosemide 20 mg oral tablet 1, tablet, By Mouth, Daily, note dose change, # 30 tablet, Refills 2, Tot. Refills 2, Maintenance, 04/09/22 15:53:00 EDT, Route to Pharmacy Electronically, [facility], 175, cm, 04/09/22 15:34:00 EDT, Height, 78.3, kg, 12/26/21 19:05:00 EDT, Start Date: 04/09/22 Stop Date: 07/08/22 Status: Ordered gabapentin 300 mg oral capsule 300 mg, 1, capsule, By Mouth, Daily at bedtime, note dose change, # 90 capsule, Refills 4, Tot. Refills 4, Maintenance, 04/09/22 15:53:00 EDT, Route to Pharmacy Electronically, [facility], Partial fill upon patient request if the prescription... Start Date: 04/09/22 Stop Date: 07/03/23 Status: Ordered hydrOXYzine hydrochloride 25 mg oral tablet 1 TO 2 TABLETS, By Mouth, 3 times a day, PRN NEEDED FOR ANXIETY (VIAL), # 60 tablet, 11 Refills,Maintenance, 03/13/22 8:38:00 EDT, [facility], 175, cm, 01/06/22 10:34:00 EDT, Height, 78.3, kg, 12/26/21 19:05:00 EDT, Dry Weight Start Date: 03/13/22 Status: Ordered lactulose 10 gm/15 ml oral syrup See Instructions, TAKE 30ML BY MOUTH THREE TIMES DAILY NEEDED TO ACHEIVE 3-4 BOWL MOVEMENTS PER DAY, # 3,000 mL, 10 Refills, [facility], 30, TAKE 30ML BY MOUTH THREE TIMES DAILY NEEDED TO ACHEIVE 3-4 BOWL MOVEMENTS PER DAY, 174, cm, 02/12... Start Date: 07/02/21 Status: Ordered lidocaine 0.5% topical gel 1 application, Topically, 3 times a day, # 120 Gm, 0 Refills, Acute 12/30/22 17:23:00 EDT, 12/30/2216:23:00 EDT, Gel, [facility], Partial fill upon patient request if the prescription is fora schedule II opioid drug., 1 application Topically... Start Date: 12/30/21 Stop Date: 12/30/22 Status: Ordered Lidoderm 5% film 1 patch, Topically, Daily, remove patches after 12 hours NSAIDS contraindicated High dose tylenol contraindicated, # 30 patch, 5 Refills, Maintenance, 12/26/21 9:33:00 EDT, [facility], Partial fill upon patient request if the prescription i... Start Date: 12/26/21 Status: Ordered magnesium oxide 400 mg oral tablet 1 tablet, By Mouth, 2 times a day, # 60 tablet, 11 Refills, Maintenance, 03/13/22 8:37:00 EDT, [facility], 175, cm, 01/06/22 10:34:00 EDT, Height, 78.3, kg, 12/26/21 19:05:00 EDT, Dry Weight Start Date: 03/13/22 Status: Ordered Melatonin 3 mg oral tablet 1 tablet, By Mouth, Daily at bedtime, PRN NEEDED FOR INSOMNIA (PACKAGE IN TRAY), # 60 tablet, 5 Refills, Maintenance, 06/02/21 16:17:00 EST, [facility], 28, 1 tablet By Mouth [...] 04/09/22 16:00:00 EDT, Route to Pharmacy Electronically, [facility], Partial fill upon patient requestif the prescription is for a schedule II opioid remedios... Start Date: 04/09/22 Stop Date: 10/06/22 Status: Ordered Potassium Chloride (Eqv-K-Tab) 20 mEq oral tablet, extended release 2 tablet, By Mouth, Daily, # 60 tablet, 1 Refills, Maintenance, 03/13/22 12:37:00 EDT, [id number], 175, cm, 01/06/22 10:34:00 EDT, Height, 78.3, kg, 12/26/21 19:05:00 EDT, Dry Weight Start Date: 03/13/22 Status: Ordered pyridoxine 50 mg oral tablet 50 mg, 1, tablet, By Mouth, Daily, for 90 days, # 90 tablet, Refills 4, Tot. Refills 4, Acute 01/15/23 11:42:00 EDT, 10/22/21 11:42:00 EDT, Route to Pharmacy Electronically, [facility], Partial fill upon patient request [...] Refills, Maintenance, 03/12/22 17:21:00 EDT, Tablet, [facility]/pharmacy #[id number], Partial fill upon patient request if the prescription is for a schedule II opioid drug., 175, cm,... Start Date: 03/12/22 Status: Ordered Tab-A-Jesse oral tablet 1 tablet, By Mouth, Daily, # 90 tablet, 9 Refills, [facility], 28, TAKE 1 TABLET BY MOUTH ONCE A DAY, 174, cm, 07/14/21 8:16:00 EST, Height, 81, kg, 02/27/21 14:06:00 EDT, Dry Weight Start Date: 07/22/21 Status: Ordered traZODone 50 mg oral tablet See Instructions, TAKE 1 TO 2 TABLETS BY MOUTH AT BEDTIME (ONE DOSE IN VIAL), # 60 tablet, Refills 0, Instructions Replace Required Details, Route to Pharmacy Electronically, [facility], 175,cm, 01/06/22 10:34:00 EDT, Height, 78.3, kg, 12/26/... Start Date: 01/30/22 Status: Ordered traZODone 50 mg oral tablet See Instructions, TAKE 2-3 TABLETS BY MOUTH AT BEDTIME (ONE DOSE IN VIAL), # 90 tablet, Refills 5, Tot. Refills 5, Maintenance, 12/26/21 9:21:00 EDT, Instructions Replace Required Details, Route to Pharmacy Electronically, [facility], 170, cm,... Start Date: 12/26/21 Status: Ordered Vitamin B1 100 mg oral tablet 1, tablet, By Mouth, Daily, # 90 tablet, Refills 3, Maintenance, 03/13/22 8:37:00 EDT, Route to Pharmacy Electronically, [facility], 175, cm, 01/06/22 10:34:00 EDT, Height, 78.3, kg, 12/26/2218:05:00 EDT, Dry Weight Start Date: 03/13/22 Status: Ordered Xifaxan 550 mg oral tablet 1 tablet, By Mouth, 2 times a day, # 60 tablet, 1 Refills, Maintenance, 04/10/22 16:49:00 EDT, [facility], 175, cm, 04/09/22 15:34:00 EDT, [...] Personnel Name: Jany Baig DO Address: Address: [address] [place] [address] Adult [facility] Pediatric [facility] [place], [place] [address]
--- OUTSIDE RECORDS SUMMARY | 2023-12-15 21:01 | XMS_ITS | Continuity of Care Document ---
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 Role Phone Jany Baig DO Primary Care Physician Encounter [facility] Date(s): 03/18/21 - 04/17/21 [facility] [address] [place] [address]- Allergies, Adverse Reactions, Alerts Substance Reaction Severity [...] (oldterm) 08/02/12 Give n 1Result Comment: [04/29/2017] [id number] 2Admin Note: FLUARIX 3Admin Note: 3 RDINJ 4Admin Note: #2 Medications baclofen 10 mg oral tablet 1, tablet, By Mouth, 3 times a day, # 90 tablet, Refills 0, Route to Pharmacy Electronically, [facility], 174, cm, 02/27/21 15:17:00 EDT, Height, 81, kg, 02/27/21 14:06:00 EDT, Dry Weight Start Date: 04/16/21 Status: Ordered chantix 1mg tablet 1 tablet, By Mouth, 2 times a day, # 56 tablet, 0 Refills, Acute, 11/22/20 16:13:00 EDT, [facility], 178, cm, 11/12/20 15:32:00 EDT, Height, 84.9, kg, 08/31/20 1:07:00 EDT, Dry Weight Start Date: 11/22/20 Status: Ordered Co Q-10 100 mg oral capsule See Instructions, TAKE 1 CAPSULE BY MOUTH FOUR TIMES DAILY, # 120 capsule, 7 Refills, Maintenance, [facility], 178, cm, 10/22/20 13:17:00 EDT, Height, [...] 16 Gm, 5 Refills, Maintenance, [facility], 30, USE 1 SPRAY INTO EACH NOSTRIL TWICE A DAY, 178, cm, 01/07/21 17:59:00 EDT, Height, 81.4, kg, 12/03/20 13:52:00 EDT, Dry Weight Start Date: 01/17/21 Status: Ordered gabapentin 600 mg oral tablet 1 tablet, By Mouth, 4 times a day, # 120 tablet, 0 Refills, [facility], 174, cm, 02/27/21 15:17:00 EDT, Height, 81, kg, 02/27/21 14:06:00 EDT, Dry Weight Start Date: 04/16/21 Status: Ordered hydrOXYzine hydrochloride 25 mg oral tablet 1 TO 2 TABLETS, By Mouth, 3 times a day, PRN NEEDED FOR ANXIETY (VIAL), # 60 tablet, 2 Refills, [facility], 174, cm, 02/11/21 12:09:00 EDT, Height, 86.6, kg, 02/06/21 14:20:00 EDT, Dry Weight Start Date: 02/19/21 Status: Ordered melatonin 3 mg oral tablet 1 tablet = 3 mg, By Mouth, Daily at bedtime, PRN for insomnia, # 60 tablet, 4 Refills, Maintenance,07/18/20 17:30:00 EST, Tablet, [facility], 175, cm, 04/02/20 0:35:00 EDT, Height, 100, kg, 04/02/20 0:35:00 EDT, Dry Weight Start Date: 07/18/20 Status: Ordered OXcarbazepine 150 mg oral tablet [...] Maintenance, 10/06/19 15:57:00 EDT, Tablet, [facility], 175, cm, 08/24/19 14:14:00 EDT,Height, 81.2, kg, 02/04/19 1:40:00 EDT, Dry Weight Start Date: 10/06/19 Status: Ordered sertraline 50 mg oral tablet 1 tablet, By Mouth, Daily, TAKE ALONG WITH A 100MG TABLET to equal 150mg daily, # 90 tablet, 1 Refills, Maintenance, 10/06/19 15:57:00 EDT, [facility], 175, cm, 08/24/19 14:14:00 EDT, Height,81.2, [...] 30 tablet, 10 Refills, Maintenance, [facility], 28, TAKE 1 TABLET BY MOUTH ONCE A DAY, 175, cm, 04/02/20 0:35:00 EDT, Height, 100, kg, 04/02/20 0:35:00 EDT, Dry Weight Start Date: 07/18/20 Status: Ordered tranexamic acid 650 mg oral tablet 1 tablet = 650 mg, By Mouth, Daily, # 21 tablet, 0 Refills, Maintenance, 10/22/20 17:52:00 EDT, Tablet, [facility]/pharmacy #[id number], Partial [...] Details, Route to Pharmacy Electronically, [facility], 174,cm, 02/11/21 12:09:00 EDT, Height, 86.6, kg, ... Start Date: 02/15/21 Status: Ordered Vitamin B1 100 mg oral tablet 1, tablet, By Mouth, Daily, # 90 tablet, Refills 2, Tot. Refills 0, Acute, 09/05/20 17:32:00 EDT, Route to Pharmacy Electronically, [facility], 178, cm, 08/31/20 11:25:00 EDT, Height, [...]
--- OUTSIDE RECORDS SUMMARY | 2023-12-15 21:01 | XMS_ITS | Continuity of Care Document ---
Author Organization [facility] ter Address [address] [place] [id number]- Care Team Providers Care Nut Processing Supervisor Name Role Phone Jany Baig DO Primary Care Physician [place] [facility] [place]): [place] - 05/02/[address] [address]- Encounter Diagnosis Fall(Final) - 05/02/22 Alcohol intoxication(Final) - 05/02/22 Alcohol intoxication(Final) - 05/02/22 Fall(Final) - 05/02/22 Discharge Disposition: A-D/C Home Attending Physician: Jem Rboerson MD Admitting Physician: Jem Roberson MD Referring [...] 1Result Comment: [facility]: [id number] 2Result Comment: [04/29/2017] [id number] 3Admin Note: FLUARIX 4Admin Note: 3 RDINJ 5Admin Note: #2 Medications acetaminophen 500 mg oral tablet 1 tablet, By Mouth, 4 times a day, PRN NEEDED FOR PAIN, MAX 4, PER DAY (VIAL., # 50 tablet, 11 Refills, Maintenance, 03/13/22 8:37:00 EDT, [facility], 175, cm, 01/06/22 10:34:00 EDT, Height, 78.3, kg, 12/26/21 19:05:00 EDT, Dry Weight Start Date: 03/13/22 Status: Ordered amLODIPine 5 mg oral tablet 5 mg, 1, tablet, By Mouth, Daily, # 30 tablet, Refills 5, Tot. Refills 5, Maintenance, 10/21/21 10:15:00 EDT, Route to Pharmacy Electronically, [facility], Partial fill upon patient request if the prescription is for a schedule II opioid drug.... Start Date: 10/21/21 Status: Ordered Co Q-10 100 mg oral capsule 1 capsule, By Mouth, 4 times a day, # 120 capsule, 5 Refills, Maintenance, 04/09/22 15:55:00 EDT, [facility], 175, cm, 04/09/22 15:34:00 EDT, [...] Gm, 5 Refills, Maintenance, 02/18/22 10:02:00 EDT, [facility], 30, USE 1 SPRAY(S) INTO EACH NOSTRIL TWICE A DAY, 175, cm, 01/06/22 10:34:00 EDT, Height, 78.3, kg, 12/26/21 19... Start Date: 02/18/22 Status: Ordered folic acid 1 mg oral tablet 1 mg, 1, tablet, By Mouth, Daily, # 90 tablet, Refills 4, Tot. Refills 4, Maintenance, 10/27/21 10:40:00 EDT, [facility], Partial fill upon patient request if the prescription is for a schedule II opioid drug.... Start Date: 10/27/21 Stop Date: 01/20/23 Status: Ordered furosemide 20 mg oral tablet 1, tablet, By Mouth, Daily, note dose change, # 30 tablet, Refills 2, Tot. Refills 2, Maintenance, 04/09/22 15:53:00 EDT, [facility], 175, cm, 04/09/22 15:34:00 EDT, Height, 78.3, kg, 12/26/21 19:05:00 EDT, Start Date: 04/09/22 Stop Date: 07/08/22 Status: Ordered gabapentin 300 mg oral capsule 300 mg, 1, capsule, By Mouth, Daily at bedtime, note dose change, # 90 capsule, Refills 4, Tot. Refills 4, Maintenance, 04/09/22 15:53:00 EDT, Route to Pharmacy Electronically, [facility], Partial fill upon patient request if the prescription... Start Date: 04/09/22 Stop Date: 07/03/23 Status: Ordered hydrOXYzine hydrochloride 25 mg oral tablet 1 TO 2 TABLETS, By Mouth, 3 times a day, PRN NEEDED FOR ANXIETY (VIAL), # 60 tablet, 11 Refills,Maintenance, 03/13/22 8:38:00 EDT, [facility], 175, cm, 01/06/22 10:34:00 EDT, Height, 78.3, kg, 12/26/21 19:05:00 EDT, Dry Weight Start Date: 03/13/22 Status: Ordered lactulose 10 gm/15 ml oral syrup See Instructions, TAKE 30ML BY MOUTH THREE TIMES DAILY NEEDED TO ACHEIVE 3-4 BOWL MOVEMENTS PER DAY, # 3,000 mL, 10 Refills, [facility], 30, TAKE 30ML BY MOUTH THREE TIMES DAILY NEEDED TO ACHEIVE 3-4 BOWL MOVEMENTS PER DAY, 174, cm, 02/12... Start Date: 07/02/21 Status: Ordered lidocaine 0.5% topical gel 1 application, Topically, 3 times a day, # 120 Gm, 0 Refills, Acute 12/30/22 17:23:00 EDT, 12/30/2216:23:00 EDT, Gel, [facility], Partial fill upon patient request if the prescription is fora schedule II opioid drug., 1 application Topically... Start Date: 12/30/21 Stop Date: 12/30/22 Status: Ordered Lidoderm 5% film 1 patch, Topically, Daily, remove patches after 12 hours NSAIDS contraindicated High dose tylenol contraindicated, # 30 patch, 5 Refills, Maintenance, 12/26/21 9:33:00 EDT, [facility], Partial fill upon patient request if the prescription i... Start Date: 12/26/21 Status: Ordered magnesium oxide 400 mg oral tablet 1 tablet, By Mouth, 2 times a day, # 60 tablet, 11 Refills, Maintenance, 03/13/22 8:37:00 EDT, [facility], 175, cm, 01/06/22 10:34:00 EDT, Height, 78.3, kg, 12/26/21 19:05:00 EDT, Dry Weight Start Date: 03/13/22 Status: Ordered Melatonin 3 mg oral tablet 1 tablet, By Mouth, Daily at bedtime, PRN NEEDED FOR INSOMNIA (PACKAGE IN TRAY), # 60 tablet, 5 Refills, Maintenance, 06/02/21 16:17:00 EST, [facility], 28, 1 tablet By Mouth [...] 16:00:00 EDT, Route to Pharmacy Electronically, [facility], Partial fill upon patient requestif the prescription is for a schedule II opioid remedios... Start Date: 04/09/22 Stop Date: 10/06/22 Status: Ordered Potassium Chloride (Eqv-K-Tab) 20 mEq oral tablet, extended release 2 tablet, By Mouth, Daily, # 60 tablet, 1 Refills, Maintenance, 03/13/22 12:37:00 EDT, [id number], 175, cm, 01/06/22 10:34:00 EDT, Height, 78.3, kg, 12/26/21 19:05:00 EDT, Dry Weight Start Date: 03/13/22 Status: Ordered pyridoxine 50 mg oral tablet 50 mg, 1, tablet, By Mouth, Daily, for 90 days, # 90 tablet, Refills 4, Tot. Refills 4, Acute 01/15/23 11:42:00 EDT, 10/22/21 11:42:00 EDT, Route to Pharmacy Electronically, [facility], Partial fill upon patient request [...] Refills, Maintenance, 03/12/22 17:21:00 EDT, Tablet, [id number], Partial fill upon patient request if the prescription is for a schedule II opioid drug., 175, cm,... Start Date: 03/12/22 Status: Ordered Tab-A-Jesse oral tablet 1 tablet, By Mouth, Daily, # 90 tablet, 9 Refills, [facility], 28, TAKE 1 TABLET BY MOUTH ONCE A DAY, 174, cm, 07/14/21 8:16:00 EST, Height, 81, kg, 02/27/21 14:06:00 EDT, Dry Weight Start Date: 07/22/21 Status: Ordered traZODone 50 mg oral tablet See Instructions, TAKE 1 TO 2 TABLETS BY MOUTH AT BEDTIME (ONE DOSE IN VIAL), # 60 tablet, Refills 0, Instructions Replace Required Details, Route to Pharmacy Electronically, [facility], 175,cm, 01/06/22 10:34:00 EDT, Height, 78.3, kg, ... Start Date: 01/30/22 Status: Ordered traZODone 50 mg oral tablet See Instructions, TAKE 2-3 TABLETS BY MOUTH AT BEDTIME (ONE DOSE IN VIAL), # 90 tablet, Refills 5, Tot. Refills 5, Maintenance, 12/26/21 9:21:00 EDT, Instructions Replace Required Details, Route to Pharmacy Electronically, [facility], 170, cm,... Start Date: 12/26/21 Status: Ordered Vitamin B1 100 mg oral tablet 1, tablet, By Mouth, Daily, # 90 tablet, Refills 3, Maintenance, 03/13/22 8:37:00 EDT, Route to Pharmacy Electronically, [facility], 175, cm, 01/06/22 10:34:00 EDT, Height, 78.3, kg, 12/26/2218:05:00 EDT, Dry Weight Start Date: 03/13/22 Status: Ordered Xifaxan 550 mg oral tablet 1 tablet, By Mouth, 2 times a day, # 60 tablet, 1 Refills, Maintenance, 04/10/22 16:49:00 EDT, [facility], 175, cm, 04/09/22 15:34:00 EDT, [...] Exam Date Time Procedure Performing Provider Status 05/02/22 2:[address] Thoracic Spine W/O Contrast Gabriela Hood; Auth (Verified) Notes: (CT Thoracic Spine W/O Contrast) Reason For Exam: Spine fracture, thoracic, traumatic;Other: RESULT: CT Thoracic Spine W/O Contrast CT Thoracic Spine W/O Contrast INDICATION: Injured in a fall. Alcohol intoxication. Posttraumatic back pain. TECHNIQUE: Noncontrast CT of the thoracic spine was performed. Bone and soft tissue algorithms werereconstructed along with coronal and sagittal computations. Weight-based protocol using automatic tube modulation was used to optimize exposure parameters. RADIATION DOSE PARAMETERS: CTDIvol Body: 9.30 mGy, DLP Body: 386 mGy*cm. COMPARISON: 03/02/2022. FINDINGS: Spine: No fractures or bone lesion. Normal alignment. Minimal degenerative change. Soft tissues: No pleural effusion. Transjugular intrahepatic portosystemic shunt. Embolization coils in the upper abdomen. Gallstones. IMPRESSION: 1. No fracture thoracic spine. 2. Normal limited I have personally reviewed the images and I agree with this report. WSN: [id number] Ordering Physician: Torrie Herbert Dictated By: Emil Lorenzo MD Dictated Date/Time: 05/02/22 6:55 am Reviewed By: Dave Guillen MD Signed By: Dave Guillen MD Signed Date/Time: 05/02/22 7:00 am Transcribed By: MIRNA Transcribed Date/Time: 05/02/22 6:36 am * Exam Date Time Procedure Performing Provider Status 05/02/22 2:[address] Cervical Spine W/O Contrast Gabriela Hood; Auth (Verified) Notes: (CT Cervical Spine W/O Contrast) Reason For Exam: Neck trauma, dangerous injury mechanism;Other: RESULT: CT Cervical Spine W/O Contrast CT Head/Brain W/O Contrast, CT Cervical Spine W/O Contrast INDICATION: Back pain. Trauma. TECHNIQUE: Noncontrast head CT using axial technique was reconstructed in axial and coronal planes.Noncontrast spiral CT through the cervical spine was formatted in 3 planes. Automatic tube modulation was used for the cervical spine and iterative dose reconstruction was used for both the head and cervical spine to optimize scan parameters and image quality. CTDIvol Body: 11.60 mGy, DLP Body: 300 mGy*cm. CTDIvol Head: 39.80 mGy, DLP Head: 672 mGy*cm. COMPARISON: 03/02/2022 FINDINGS: Sewer Connector View Findings, Lines and Tubes: Chronic irregularity left lateral clavicle. BRAIN AND EXTRA-AXIAL SPACES: No parenchymal hemorrhage, midline shift, or mass effect. Clancy-white matter differentiation is wellpreserved. No acute infarct. Ventricles, sulci, and basilar cisterns shows an atrophic change greater than expected for age.. Mild low-density white matter changes. No subarachnoid [...] locked or perched facet. Mild degenerative changes most pronounced at C6-C7.. OTHER BONES: No acute abnormality. CERVICAL SOFT TISSUES AND LUNG APICES: Normal soft tissues. Visualized lung apices are clear. IMPRESSION: No acute abnormality of the head or cervical spine. I have personally reviewed the images and I agree with this report. WSN: [id number] Ordering Physician: Torrie Herbert Dictated By: Emil Lorenzo MD Dictated Date/Time: 05/02/22 6:28 am Reviewed By: Dave Guillen MD Signed By: Dave Guillen MD Signed Date/Time: 05/02/22 6:33 am Transcribed By: MIRNA Transcribed Date/Time: 05/02/22 2:31 am * Exam Date Time Procedure Performing Provider Status 05/02/22 2:[address] Head/Brain W/O Contrast Lolly Hood; Tanna (Verified) Notes: (CT Head/Brain W/O Contrast) Reason For Exam: fall, hx prev bleed;Trauma RESULT: CT Head/Brain W/O Contrast CT Head/Brain W/O Contrast, CT Cervical Spine W/O Contrast INDICATION: Back pain. Trauma. TECHNIQUE: Noncontrast head CT using axial technique was reconstructed in axial and coronal planes.Noncontrast spiral CT through the cervical spine was formatted in 3 planes. Automatic tube modulation was used for the cervical spine and iterative dose reconstruction was used for both the head and cervical spine to optimize scan parameters and image quality. CTDIvol Body: 11.60 mGy, DLP Body: 300 mGy*cm. CTDIvol Head: 39.80 mGy, DLP Head: 672 mGy*cm. COMPARISON: 03/02/2022 FINDINGS: Sewer Connector View Findings, Lines and Tubes: Chronic irregularity left lateral clavicle. BRAIN AND EXTRA-AXIAL SPACES: No parenchymal hemorrhage, midline shift, or mass effect. Clancy-white matter differentiation is wellpreserved. No acute infarct. Ventricles, sulci, and basilar cisterns shows an atrophic change greater than expected for age.. Mild low-density white matter changes. No subarachnoid [...] locked or perched facet. Mild degenerative changes most pronounced at C6-C7.. OTHER BONES: No acute abnormality. CERVICAL SOFT TISSUES AND LUNG APICES: Normal soft tissues. Visualized lung apices are clear. IMPRESSION: No acute abnormality of the head or cervical spine. I have personally reviewed the images and I agree with this report. WSN: [id number] Ordering Physician: Torrie Herbert Dictated By: Emil Lorenzo MD Dictated Date/Time: 05/02/22 6:28 am Reviewed By: Dave Guillen MD Signed By: Dave Guillen MD Signed Date/Time: 05/02/22 6:33 am Transcribed By: MIRNA Transcribed Date/Time: 05/02/22 2:31 am Vital Signs Most recent to oldest [Reference Range]: 1 2 3 Oxygen Saturation [94-100 %] 99 % (05/02/22 5:51 AM) 98 % (05/02/22 3:48 AM) 99 % (05/02/22 1:30 AM) Pulse Rate [55-90 bpm] 72 bpm (05/02/22 5:51 AM) 78 bpm (05/02/22 3:48 AM) 89 bpm (05/02/22 1:35 AM) Blood Pressure [90-138/55-84 mm Hg] 122/69mm Hg (05/02/22 5:51 AM) 116/64mm Hg (05/02/22 3:48 AM) 130/68mm Hg (05/02/22 1:35 AM) Respiratory Rate [16-30 br/min] 16 br/min (05/02/22 5:51 AM) 16 br/min (05/02/22 3:48 AM) 16 br/min (05/02/22 1:37 AM) Temperature [96.8-100.4 DegF] 97.8 DegF (05/02/22 5:51 AM) 97.6 DegF (05/02/22 1:30 AM) Mode of Delivery (Oxygen) Room air (05/02/22 5:51 AM) Room air (05/02/22 3:48 AM) Room air (05/02/22 1:30 AM) Blood pressure sites Arm, left (05/02/22 5:51 AM) Arm, left (05/02/22 3:48 AM) Arm, left (05/02/22 1:30 AM) Temperature Route Oral (05/02/22 5:51 AM) Oral (05/02/22 1:30 AM) Social History Social History Type Response Smoking Status 10 or more cigarette s (1/2 pack or more)/day in last 30 days entered on: 02/04/[address] Cervical spine WO contrast * [facility] , CIS S: TRANSCRIMAMIE Lorenzo MD, Emil L: [place] Guillen MD, Dave D: VERIFY Event Display: Result: Authored Date: [id number] CT Head/Brain W/O Contrast, CT Cervical Spine W/O Contrast INDICATION: Back pain. Trauma. TECHNIQUE: Noncontrast head CT using axial technique was reconstructed in axial and coronal planes.Noncontrast spiral CT through the cervical spine was formatted in 3 planes. Automatic tube modulation was used for the cervical spine and iterative dose reconstruction was used for both the head and cervical spine to optimize scan parameters and image quality. CTDIvol Body: 11.60 mGy, DLP Body: 300 mGy*cm. CTDIvol Head: 39.80 mGy, DLP Head: 672 mGy*cm. COMPARISON: 03/02/2022 FINDINGS: Sewer Connector View Findings, Lines and Tubes: Chronic irregularity left lateral clavicle. BRAIN AND EXTRA-AXIAL SPACES: No parenchymal hemorrhage, midline shift, or mass effect. Clancy-white matter differentiation is wellpreserved. No acute infarct. Ventricles, sulci, and basilar cisterns shows an atrophic change greater than expected for age.. Mild low-density white matter changes. No subarachnoid [...] locked or perched facet. Mild degenerative changes most pronounced at C6-C7.. OTHER BONES: No acute abnormality. CERVICAL SOFT TISSUES AND LUNG APICES: Normal soft tissues. Visualized lung apices are clear. IMPRESSION: No acute abnormality of the head or cervical spine. I have personally reviewed the images and I agree with this report. WSN: [id number] Ordering Physician: Torrie Herbert Dictated By: Emil Lorenzo MD Dictated Date/Time: 05/02/22 6:28 am Reviewed By: Dave Guillen MD Signed By: Dave Guillen MD Signed Date/Time: 05/02/22 6:33 am Transcribed By: MIRNA Transcribed Date/Time: 05/02/22 2:[address] Head WO contrast * [facility] , CIS S: TRANSCRIBE Emil Lorenzo MD: SIGN Dave Guillen MD: VERIFY Event Display: Result: Authored Date: [id number] CT Head/Brain W/O Contrast, CT Cervical Spine W/O Contrast INDICATION: Back pain. Trauma. TECHNIQUE: Noncontrast head CT using axial technique was reconstructed in axial and coronal planes.Noncontrast spiral CT through the cervical spine was formatted in 3 planes. Automatic tube modulation was used for the cervical spine and iterative dose reconstruction was used for both the head and cervical spine to optimize scan parameters and image quality. CTDIvol Body: 11.60 mGy, DLP Body: 300 mGy*cm. CTDIvol Head: 39.80 mGy, DLP Head: 672 mGy*cm. COMPARISON: 03/02/2022 FINDINGS: Sewer Connector View Findings, Lines and Tubes: Chronic irregularity left lateral clavicle. BRAIN AND EXTRA-AXIAL SPACES: No parenchymal hemorrhage, midline shift, or mass effect. Clancy-white matter differentiation is wellpreserved. No acute infarct. Ventricles, sulci, and basilar cisterns shows an atrophic change greater than expected for age.. Mild low-density white matter changes. No subarachnoid [...] locked or perched facet. Mild degenerative changes most pronounced at C6-C7.. OTHER BONES: No acute abnormality. CERVICAL SOFT TISSUES AND LUNG APICES: Normal soft tissues. Visualized lung apices are clear. IMPRESSION: No acute abnormality of the head or cervical spine. I have personally reviewed the images and I agree with this report. WSN: [id number] Ordering Physician: Torrie Herebrt Dictated By: Emil Lorenzo MD Dictated Date/Time: 05/02/22 6:28 am Reviewed By: Dave Guillen MD Signed By: Dave Guillen MD Signed Date/Time: 05/02/22 6:33 am Transcribed By: MIRNA Transcribed Date/Time: 05/02/22 2:[address] Thoracic spine WO contrast * [facility] , CIS S: TRANSCRIBE Emil Lorenzo MD: SIGN Dave Guillen MD: VERIFY Event Display: Result: Authored Date: [id number] CT Thoracic Spine W/O Contrast INDICATION: Injured in a fall. Alcohol intoxication. Posttraumatic back pain. TECHNIQUE: Noncontrast CT of the thoracic spine was performed. Bone and soft tissue algorithms werereconstructed along with coronal and sagittal computations. Weight-based protocol using automatic tube modulation was used to optimize exposure parameters. RADIATION DOSE PARAMETERS: CTDIvol Body: 9.30 mGy, DLP Body: 386 mGy*cm. COMPARISON: 03/02/2022. FINDINGS: Spine: No fractures or bone lesion. Normal alignment. Minimal degenerative change. Soft tissues: No pleural effusion. Transjugular intrahepatic portosystemic shunt. Embolization coils in the upper abdomen. Gallstones. IMPRESSION: 1. No fracture thoracic spine. 2. Normal limited I have personally reviewed the images and I agree with this report. WSN: [id number] Ordering Physician: Torrie Herbert Dictated By: Emil Lorenzo MD Dictated Date/Time: 05/02/22 6:55 am Reviewed By: Dave Guillen MD Signed By: Dave Guillen MD Signed Date/Time: 05/02/22 7:00 am Transcribed By: MIRNA Transcribed Date/Time: 05/02/22 6:36 am Patient Care team information Care Team [...] Care Nurse Name: Jean Nugent RN Position: [facility] RN Member Role: Primary Care Nurse Name: Mary Suazo RN Position: [facility] RN Member Role: Primary Care Nurse Name: Yenny Bernstein Position: [facility] RN Member Role: Primary Care Nurse Name: Jany Baig DO Position: [facility] Primary Care Physician Member Role: PCP Address: Address: [address] [place] [address] [facility] [place], [place] [address] Name: Neida Ballard RN [facility] [...] Role: Lifetime Consulting Provider Address: Address: [address] [place] [id number]- [place] Name: Ge Covarrubias RN Position: [facility] RN Member Role: Primary Care Nurse Name: Orin Elmore RN Position: [facility] ED RN W/OE and Tasks Member Role: Primary Care Nurse Name: Allegra Liu RN Position: [facility] PCO RN Member Role: Primary Care Nurse Name: Shayan Pandya MD Position: [facility] Renal MD Member Role: Lifetime Consulting Physician Address: Address: [address] [place] [address] [address] [facility] [place] [address]- [place] Name: Darlene Rodrigez RN Position: [facility] RN Member Role: Primary Care Nurse Name: Kwan Mills RN Position: [facility] RN Member Role: Primary Care Nurse Name: Kim Rendon RN Position: [facility] RN Member Role: Primary Care Nurse Name: Monica Rowell RN Position: [facility] RN Member Role: Primary Care Nurse Name: Estela Ramos Position: [facility] RN Member Role: Primary Care Nurse Name: Meena Sanford Position: [facility] ED TA [facility] Member Role: Patient Care Provider Name: Fwaad Xie RN Position: [facility] ED RN W/OE and Tasks Member Role: Patient Care Provider Name: Torrie Herbert DO Position: [facility] Resident Member Role: ED Resident Address: Address: [address] [place] [id number]- Name: Nick Bowers RN Position: [facility] ED RN W/OE and Tasks Member Role: Patient Care Provider Name: Jem Roberson MD Position: [facility] Resident Member Role: ED Attending Physician Address: Address: [address] [place] [id number]- Care Team Related Persons Name: MARLEN CABEZAS Address: home [address] [place] [address] Name: MARLEN CABEZAS Address: home [address] [place] [address] Name: NICK CABEZAS Name: GEMA CABEZAS Address: home [address] [place] [address]
--- OUTSIDE RECORDS SUMMARY | 2023-12-15 21:01 | XMS_ITS | Continuity of Care Document ---
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 Name Role Phone Jany Baig DO Primary Care Physician [facility]): 08/13/22 - 09/12/22 [facility] [address] [place] [address]- Allergies, Adverse Reactions, Alerts Substance Reaction Severity [...] acel (oldterm) 08/02/12 Give n 1Result Comment: [facility]: [id number] 2Result Comment: [04/29/2017] [id number] 3Admin Note: FLUARIX 4Admin Note: 3 RDINJ 5Admin Note: #2 Medications acamprosate 333 mg oral delayed release tablet 1 tablet = 333 mg, By Mouth, 3 times a day, # 90 tablet, 4 Refills, Maintenance, 09/03/22 14:59:00 EDT, [facility] Partial fill upon patient request if the prescription is for a schedule II opioid drug., 169, cm, 09/03/22 14:21:00... Start Date: 09/03/22 Status: Ordered amLODIPine 5 mg oral tablet See Instructions, TAKE 1 TABLET BY MOUTH ONCE A DAY^1R1, # 30 tablet, 5 Refills, Maintenance, 05/13/22 16:24:00 EST, [facility], 175, cm, 04/09/22 15:34:00 EDT, Height, 78.3, kg, 12/26/21 19:05:00 EDT, Dry Weight Start Date: 05/13/22 Status: Ordered baclofen 10 mg oral tablet See Instructions, TAKE 1 TABLET BY MOUTH THREE TIMES DAILY, # 90 tablet, Refills 0, Maintenance, 08/07/22 12:26:00 EST, Instructions Replace Required Details, Route to Pharmacy Electronically, [facility], 176, cm, 08/07/22 11:37:00 EST, Height... Start Date: 08/07/22 Status: Ordered Co Q-10 100 mg oral capsule See Instructions, TAKE 1 CAPSULE BY MOUTH FOUR TIMES DAILY, # 120 capsule, 6 Refills, Maintenance, 08/07/22 12:13:00 EST, [facility], 176, cm, 08/07/22 11:37:00 EST, [...] Gm, 11 Refills, Maintenance, 08/07/22 12:12:00 EST, [facility]/pharmacy #[id number], 30, USE 1 SPRAY(S) INTO EACH NOSTRIL TWICE A DAY, 176, cm,08/07/22 11:37:00 EST, Height, 79.8, kg, 07/31/22 2... Start Date: 08/07/22 Status: Ordered folic acid 1 mg oral tablet 1 mg, 1, tablet, By Mouth, Daily, # 90 tablet, Refills 4, Tot. Refills 4, Maintenance, 10/27/21 10:40:00 EDT, Route to Pharmacy Electronically, [facility], Partial fill upon patient request if the prescription is for a schedule II opioid drug.... Start Date: 10/27/21 Stop Date: 01/20/23 Status: Ordered furosemide 20 mg oral tablet 1, tablet, By Mouth, Daily, R1., # 30 tablet, Refills 5, Tot. Refills 5, Maintenance, 09/03/22 14:50:00 EDT, Route to Pharmacy Electronically, [facility], 169, cm, 09/03/22 14:21:00 EDT, Height, 69, kg, 08/16/22 1:04:00 EST, Dry Weight Start Date: 09/03/22 Status: Ordered gabapentin 300 mg oral capsule 300 mg, 1, capsule, By Mouth, 2 times a day, note dose/frequency change, # 180 capsule, Refills 4, Tot. Refills 4, Maintenance, 09/03/22 14:55:00 EDT, Route to Pharmacy Electronically, [facility], 169, cm, 09/03/22 14:21:00 EDT, Height, 69, kg... Start Date: 09/03/22 Stop Date: 11/27/23 Status: Ordered hydrOXYzine hydrochloride 25 mg oral tablet 1 TO 2 TABLETS, By Mouth, Daily at bedtime, PRN NEEDED FOR ANXIETY (VIAL), # 60 tablet, 11 Refills, Maintenance, 03/13/22 8:38:00 EDT, [facility], 175, cm, 01/06/22 10:34:00 EDT, Height, 78.3, kg, 12/26/21 19:05:00 EDT, Dry Weight Start Date: 03/13/22 Status: Ordered lactulose 10 gm/15 ml oral syrup See Instructions, TAKE 30ML BY MOUTH THREE TIMES DAILY NEEDED TO ACHEIVE 3-4 BOWL MOVEMENTS PER DAY, # 3,000 mL, 10 Refills, [facility], 30, 174, cm, 02/27/21 15:17:00 EDT, Height, 81, kg,02/27/21 14:06:00 EDT, Dry Weight Start Date: 07/02/21 Status: Ordered Lidoderm 5% film 1 patch, Topically, Daily, remove patches after 12 hours NSAIDS contraindicated High dose tylenol contraindicated remove patches after 12 hours Nueropathy, # 30 patch, 5 Refills, Maintenance, 09/03/22 16:34:00 EDT, [facility], Partial klaudia... Start Date: 09/03/22 Status: Ordered magnesium oxide 400 mg oral tablet 1 tablet, By Mouth, 2 times a day, # 60 tablet, 11 Refills, Maintenance, 03/13/22 8:37:00 EDT, [facility], 175, cm, 01/06/22 10:34:00 EDT, Height, 78.3, kg, 12/26/21 19:05:00 EDT, Dry Weight Start Date: 03/13/22 Status: Ordered Melatonin 3 mg oral tablet 1 tablet, By Mouth, Daily at bedtime, PRN NEEDED FOR INSOMNIA (PACKAGE IN TRAY)^1R4, # 60 tablet, 5 Refills, Maintenance, 06/12/22 18:11:00 EST, [facility], 60, TAKE 1 TABLET BY [...] 09/03/22 14:53:00 EDT, Route to Pharmacy Electronically, [facility], Partial fill upon patient request if the prescription is for a schedule II opioid drug... Start Date: 09/03/22 Stop Date: 03/02/23 Status: Ordered PHENobarbital 30 mg oral tablet See Instructions, Taper 09/08-Day 1 -90mg Daily Day 2-3-60mg BID Day 4-5 30mg BID, # 15 tablet, 0 Refills, Maintenance, 09/08/22 15:05:00 EDT, [facility], Partial fill upon patient request if the prescription is for a schedule II op... Start Date: 09/08/22 Status: Ordered pyridoxine 50 mg oral tablet 50 mg, 1, tablet, By Mouth, Daily, for 90 days, # 90 tablet, Refills 4, Tot. Refills 4, Acute 01/15/23 11:42:00 EDT, 10/22/21 11:42:00 EDT, Route to Pharmacy Electronically, [facility], Partial fill upon patient request if [...] 90 tablet, 9 Refills, 08/07/22 12:27:00 EST, [facility]/pharmacy #[id number], 28, 1tablet By Mouth Daily, 176, cm, 08/07/22 11:37:00 EST, Height, 79.8, kg, 07/31/22 22:40:00 EST, DryWeight Start Date: 08/07/22 Status: Ordered traZODone 50 mg oral tablet 2 tablets, By Mouth, Daily at bedtime, # 60 each, Refills 5, Tot. Refills 5, Maintenance, 09/03/22 17:13:00 EDT, Route to Pharmacy Electronically, [facility], 169, cm, 09/03/22 14:21:00 EDT, Height, 69, kg, 08/16/22 1:04:00 EST, Dry Weight Start Date: 09/03/22 Status: Ordered Vitamin B1 100 mg oral tablet 1, tablet, By Mouth, Daily, # 90 tablet, Refills 3, Maintenance, 03/13/22 8:37:00 EDT, Route to Pharmacy Electronically, [facility], 175, cm, 01/06/22 10:34:00 EDT, Height, 78.3, kg, 12/26/2218:05:00 EDT, Dry Weight Start Date: 03/13/22 Status: Ordered Xifaxan 550 mg oral tablet 1 tablet, By Mouth, 2 times a day, ^1R1,1R4., # 60 tablet, 1 Refills, Maintenance, 06/12/22 18:10:00 EST, [facility], 179, cm, 06/08/22 7:37:00 EST, Height, [...] RN Position: [facility] ED RN W/OE and Tasks Member Role: Primary Care Nurse Name: Garima Manzano RN Position: [facility] RN Member Role: Primary Care Nurse Name: Malgorzata Marinelli RN Position: [facility] RN Member Role: Primary Care Nurse Name: Joyce Roach RN Position: [facility] RN Member Role: Primary Care Nurse Name: Mary Suazo RN Position: [facility] RN Member Role: Primary Care Nurse Name: Andres Pressley RN Position: [facility] RN Member Role: Primary Care Nurse Name: Jany Baig DO Position: [facility] Primary Care Physician Member Role: PCP Address: Address: [address] [place] [address] [facility] [address] Name: Neida Ballard RN Position: [facility] RN Member Role: Primary Care Nurse Name: Kaye Payne RN Position: [facility] RN Member Role: Primary Care Nurse Name: Garima Hutchinson Position: [facility] RN Member Role: Primary Care Nurse Name: Malgorzata Austin Position: [facility] RN Member Role: Primary Care Nurse Name: Torrie Hernandez RN Position: [facility] OB RN Member Role: Primary Care Nurse Name: Gretchen Knutson RN Position: [facility] SN RN Member Role: Primary Care Nurse Name: Aislinn Mckee RN Position: [facility] RN Member Role: Primary Care Nurse Name: Ashley Mcelroy Position: [facility] RN Member Role: Primary Care Nurse Name: Cody Garcia Position: [facility] Associate Professional Member Role: Lifetime Consulting Provider Address: Address: [address] [place] [address] Name: Ge Covarrubias RN Position: [facility] RN Member Role: Primary Care Nurse Name: Orin Elmore RN Position: [facility] ED RN W/OE and Tasks Member Role: Primary Care Nurse Name: Allegra Liu RN Position: [facility] PCO RN Member Role: Primary Care Nurse Name: Shayan Pandya MD Position: [facility] Renal MD Member Role: Lifetime Consulting Physician Address: Address: [address] [place] [address] [address] [facility], [address] Name: Darlene Rodrigez RN Position: [facility] RN Member Role: Primary Care Nurse Name: Kwan Mills RN Position: [facility] RN Member Role: Primary Care Nurse Name: Dolores Can RN Position: [facility] RN Member Role: Primary Care Nurse Name: Kim Rendon RN Position: [facility] RN Member Role: Primary Care Nurse Name: Monica Rowell RN Position: [facility] RN Member Role: Primary Care Nurse Care Team Related Persons Name: MARLEN CABEZAS Address: [address] [address] Name: MARLEN CABEZAS Address: [address] [address] Name: NICK CABEZAS Name: GEMA CABEZAS Address: [place] [address]
--- OUTSIDE RECORDS SUMMARY | 2023-12-15 21:01 | XMS_ITS | Continuity of Care Document ---
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 Name Role Phone Jany Baig DO Primary Care Physician [facility] 04[facility]23 - 05/08/23 [facility] [address] [place], [place] [address] Allergies, Adverse Reactions, Alerts Substance Reaction [...] Comment: [facility]: [id number] 2Result Comment: [04/29/2017] [id number] 3Admin Note: FLUARIX 4Admin Note: 3 RDINJ 5Admin Note: #2 Medications acamprosate 333 mg oral delayed release tablet 1 tablet = 333 mg, By Mouth, 3 times a day, # 42 tablet, 4 Refills, Maintenance, 11/05/22 11:31:00 EDT, EC Tablet, [facility], Partial fill upon patient request if the prescription is for a schedule II opioid drug., 175, cm, 11/05/22 10:21:00... Start Date: 11/05/22 Stop Date: 01/14/23 Status: Ordered amLODIPine 5 mg oral tablet 1 tablet, By Mouth, Daily, ^1R1., # 30 tablet, 5 Refills, Maintenance, 12/22/22 7:20:00 EDT, [facility], 175, cm, 12/03/22 11:50:00 EDT, Height, 88.9, kg, 10/21/22 20:41:00 EDT, Dry Weight Start Date: 12/22/22 Status: Ordered baclofen 10 mg oral tablet See Instructions, TAKE ONE TABLET BY MOUTH THREE TIMES A DAY ^1R1,1R2,1R4, # 90 tablet, Refills 5, Tot. Refills 5, Maintenance, 01/14/23 17:55:00 EDT, Instructions Replace Required Details, Route to Pharmacy Electronically, [facility], 175, cm... Start Date: 01/14/23 Status: Ordered calcium (as carbonate)-vitamin D 500 mg-400 intl units oral tablet 1 tablet, By Mouth, Daily, ^1R1., # 28 tablet, 0 Refills, Maintenance, 12/01/22 16:12:00 EDT, [facility], [facility], 1 tablet By Mouth Daily,Instr:^1R1., [...] capsule, 6 Refills, Maintenance, 12/03/22 12:13:00 EDT, [facility], 175, cm, 12/03/22 11:50:00 EDT, Height, [...] Gm, 12 Refills, Maintenance, 03/24/23 10:52:00 EDT, [facility], 28, APPLY TOPICALLY TO AFFECTED AREA(S) [...] 05/14/23 13:32:00 EST, 05/07/23 13:32:00 EST, Tablet, [facility]/pharmacy #[id number], Partial fill upon patient request [...] 03/20/23 16:22:00 EDT, [facility], 175, cm, 03/20/23 15:31:00 EDT, Height, 77.5, kg, 03/20/23 11:30:00 EDT, Dry Weight Start Date: 03/20/23 Status: Ordered furosemide 20 mg oral tablet 20 mg, 1, tablet, By Mouth, Every other day, # 30 tablet, Refills 3, Tot. Refills 3, Maintenance, 01/28/23 12:31:00 EDT, Route to Pharmacy Electronically, [facility], Partial fill upon patient request if the prescription is for a schedule II o... Start Date: 01/28/23 Status: Ordered gabapentin 300 mg oral capsule 300 mg, 1, capsule, By Mouth, Daily at bedtime, note dose/frequency change, # 90 capsule, Refills 4, Tot. Refills 4, Maintenance, 11/05/22 11:05:00 EDT, [facility], [facility], cm, 11/05/22 10:21:00 EDT, Height, 88.9... Start Date: 11/05/22 Stop Date: 01/29/24 Status: Ordered hydrOXYzine hydrochloride 10 mg oral tablet 2 tablet, By Mouth, 2 times a day, PRN NEEDED FOR ANXIETY (VIAL), # 30 tablet, 3 Refills, Maintenance, 04/16/23 16:41:00 EDT, [facility], 175, cm, 03/22/23 6:50:00 EDT, Height, 77.5, kg, 03/20/23 11:30:00 EDT, Dry Weight Start Date: 04/16/23 Status: Ordered lactulose 10 gm/15 ml oral syrup 15 mL, By Mouth, 2 times a day, # 120 mL, 6 Refills, Maintenance, 02/26/23 10:11:00 EDT, [facility], 4, TAKE 15ML BY MOUTH TWO TIMES A DAY, 175, cm, 12/03/22 11:50:00 EDT, Height, 84, kg, 02/12/23 11:30:00 EDT, Dry Weight Start Date: 02/26/23 Status: Ordered magnesium oxide 400 mg oral tablet See Instructions, TAKE 1 TABLET BY MOUTH TWICE A DAY^1R1,1R4, # 60 tablet, 11 Refills, Maintenance,01/28/23 12:31:00 EDT, [facility], 175, cm, 12/03/22 11:50:00 EDT, Height, 88.9, kg, 10/21/22 20:41:00 EDT, Dry Weight Start Date: 01/28/23 Status: Ordered Melatonin 3 mg oral tablet 1 tablet, By Mouth, Daily at bedtime, PRN NEEDED FOR INSOMNIA (PACKAGE IN TRAY)^1R4, # 60 tablet, 5 Refills, Maintenance, 04/16/23 16:41:00 EDT, [facility], 60, TAKE 1 TABLET [...] 02/26/23 10:11:00 EDT, Route to Pharmacy Electronically, [facility], 175, cm, 12/03/22 11:50:00 [...] 04/14/23 12:41:00 EDT, Route to Pharmacy Electronically, [facility], 175, cm, 03/22/23 6:50:00 EDT, Height, 77.5, kg, 03/20/23 11:30:00 EDT, Dry Weight Start Date: 04/14/23 Status: Ordered Tab-A-Jesse oral tablet 1 tablet, By Mouth, Daily, R1., # 30 tablet, 5 Refills, Maintenance, 05/06/23 19:16:00 EST, [facility], 30, TAKE 1 TABLET BY MOUTH ONCE A DAY^1R1, 175, cm, 03/22/23 6:50:00 EDT, Height, 77.5,kg, 03/20/23 11:30:00 EDT, Dry Weight Start Date: 05/06/23 Status: Ordered traZODone 50 mg oral tablet 2, tablet, By Mouth, Daily at bedtime, ^2R4., # 60 tablet, Refills 5, Maintenance, 02/26/23 10:11:00 EDT, Route to Pharmacy Electronically, [facility], 175, cm, 12/03/22 11:50:00 EDT, Height,84, [...] 02/09/23 23:18:00 EDT, Route to Pharmacy Electronically, [facility], 175, cm, 12/03/22 11:50:00 EDT, Height, 88.9, kg, 10/21/22 20:41:00 EDT, Dry Weight Start Date: 02/09/23 Status: Ordered Vitamin B6 50 mg oral tablet 1, tablet, By Mouth, Daily, R1., # 90 tablet, Refills 4, Maintenance, 11/16/22 13:39:00 EDT, Route to Pharmacy Electronically, [facility], 175, cm, 11/13/22 10:42:00 EDT, Height, [...] tablet, 3 Refills, Maintenance, 02/26/23 10:11:00 EDT, [facility], 175, cm, 12/03/22 11:50:00 EDT, Height, [...] Team Personnel Name: Alexandra Colmenares RN Position: [facility] ED RN W/OE and Tasks Member Role: Primary Care Nurse Name: Garima Manzano RN Position: [facility] RN Member Role: Primary Care Nurse Name: Malgorzata Marinelli RN Position: S RN Member Role: Primary Care Nurse Name: Joyce Roach RN Position: [facility] ED RN W/OE and Tasks Member Role: Primary Care Nurse Name: Mary Suazo RN Position: [facility] RN Member Role: Primary Care Nurse Name: Andres Pressley RN Position: [facility] ED RN W/OE and Tasks Member Role: Primary Care Nurse Name: Jany Baig DO Position: [facility] Physician - Primary Care Member Role: PCP Address: Address: [address] [place] [address] Adult & [place] [address]- Name: Kaye Payne RN Position: [facility] RN Member Role: Primary Care Nurse Name: Garima Hutchinson Position: [facility] RN Member Role: Primary Care Nurse Name: Malgorzata Austin Position: [facility] RN Member Role: Primary Care Nurse Name: Ibeth Adams RN Position: [facility] RN Member Role: Primary Care Nurse Name: Torrie Hernandez RN Position: [facility] OB RN Member Role: Primary Care Nurse Name: Gretchen Knutson RN Position: [facility] SN RN Member Role: Primary Care Nurse Name: Aislinn Mckee RN Position: [facility] RN Member Role: Primary Care Nurse Name: Ashley Mcelroy Position: [facility] RN Member Role: Primary Care Nurse Name: Ashok Kevin RN Position: [facility] RN Member Role: Primary Care Nurse Name: Cody Garcia Position: [facility] Associate Professional Member Role: Lifetime Consulting Provider Address: Address: [address] [place] [address]- Name: Paige Nasciemnto RN Position: [facility] RN Member Role: Primary Care Nurse Name: Ge Covarrubias RN Position: [facility] RN Member Role: Primary Care Nurse Name: Orin Elmore RN Position: [facility] ED RN W/OE and Tasks Member Role: Primary Care Nurse Name: Allegra Liu RN Position: [facility] AMB Nurse Member Role: Primary Care Nurse Name: Shayan Pandya MD Position: [facility] Renal MD Member Role: Lifetime Consulting Physician Address: Address: [address] [place] [address] [address] [facility], [place] [address]- Name: Darlene Rodrigez RN Position: [facility] RN Member Role: Primary Care Nurse Name: Kwan iMlls RN Position: [facility] RN Member Role: Primary Care Nurse Name: Dolores Can RN Position: [facility] RN Member Role: Primary Care Nurse Name: Ingrid Verdugo RN Position: [facility] RN Member Role: Primary Care Nurse Name: Monica Rowell RN Position: [facility] RN Member Role: Primary Care Nurse Name: Jimi Fitzpatrick RN Position: [facility] RN Member Role: Primary Care Nurse Care Team Related Persons Name: DUCBRIANWUMARLEN Address: home [address] [place] [id number] Name: MARLEN CABEZAS Address: home [address] [place] [address] Name: NICK CABEZAS Name: GEMA CABEZAS Address: home [address] [place] [address]
--- OUTSIDE RECORDS SUMMARY | 2023-12-15 21:01 | XMS_ITS | Continuity of Care Document ---
Author Organization [facility] Address [address] [place] [address]- Care Team Providers Care Health Officer Name Role Phone Jany Baig DO Primary Care Physician Encounter [facility] Date(s): 01/28/23 - 02/27/23 [facility] [address] [place] [address]- Allergies, Adverse Reactions, Alerts Substance Reaction Severity [...] n 1Result Comment: [facility]: [id number] 2Result Comment: [04/29/2017] [id number] 3Admin Note: FLUARIX 4Admin Note: 3 RDINJ 5Admin Note: #2 Medications acamprosate 333 mg oral delayed release tablet 1 tablet = 333 mg, By Mouth, 3 times a day, # 42 tablet, 4 Refills, Maintenance, 11/05/22 11:31:00 EDT, EC Tablet, [facility], Partial fill upon patient request if the prescription is for a schedule II opioid drug., 175, cm, 11/05/22 10:21:00... Start Date: 11/05/22 Stop Date: 01/14/23 Status: Ordered amLODIPine 5 mg oral tablet 1 tablet, By Mouth, Daily, ^1R1., # 30 tablet, 5 Refills, Maintenance, 12/22/22 7:20:00 EDT, [facility], 175, cm, 12/03/22 11:50:00 EDT, Height, 88.9, kg, 10/21/22 20:41:00 EDT, Dry Weight Start Date: 12/22/22 Status: Ordered baclofen 10 mg oral tablet See Instructions, TAKE ONE TABLET BY MOUTH THREE TIMES A DAY ^1R1,1R2,1R4, # 90 tablet, Refills 5, Tot. Refills 5, Maintenance, 01/14/23 17:55:00 EDT, Instructions Replace Required Details, Route to Pharm[facility], [facility], 175, cm... Start Date: 01/14/23 Status: Ordered calcium (as carbonate)-vitamin D 500 mg-400 intl units oral tablet 1 tablet, By Mouth, Daily, ^1R1., # 28 tablet, 0 Refills, Maintenance, 12/01/22 16:12:00 EDT, [facility], 28, 1 tablet By Mouth Daily,Instr:^1R1., 175, [...] capsule, 6 Refills, Maintenance, 12/03/22 12:13:00 EDT, [facility], 175, cm, 12/03/22 11:50:00 EDT, Height, [...] Gm, 0 Refills, Maintenance, 02/26/23 10:12:00 EDT, [facility], 28, APPLY TOPICALLY TO AFFECTED AREA(S) [...] 10/06/22 4:59:00 EDT, Route to Pharmacy Electronically, [facility], 176, cm, 09/07/22 8:56:00 EDT, Height, 82.1, kg, 09/07/22 8:59:00 EDT, Dry Weight Start Date: 10/06/22 Status: Ordered furosemide 20 mg oral tablet 1, tablet, By Mouth, Daily, R1., # 30 tablet, Refills 5, Tot. Refills 5, Maintenance, 09/03/22 14:50:00 EDT, [facility], 169, cm, 09/03/22 14:21:00 EDT, Height, 69, kg, 08/16/22 1:04:00 EST, Dry Weight Start Date: 09/03/22 Status: Ordered furosemide 20 mg oral tablet 20 mg, 1, tablet, By Mouth, Every other day, # 30 tablet, Refills 3, Tot. Refills 3, Maintenance, 01/28/23 12:31:00 EDT, Route to Pharmacy Electronically, [facility], Partial fill upon patient request if the prescription is for a schedule II o... Start Date: 01/28/23 Status: Ordered gabapentin 300 mg oral capsule 300 mg, 1, capsule, By Mouth, Daily at bedtime, note dose/frequency change, # 90 capsule, Refills 4, Tot. Refills 4, Maintenance, 11/05/22 11:05:00 EDT, Route to Pharmacy Electronically, [facility], 175, cm, 11/05/22 10:21:00 EDT, Height, 88.9... Start Date: 11/05/22 Stop Date: 01/29/24 Status: Ordered hydrOXYzine hydrochloride 10 mg oral tablet 2 tablet, By Mouth, 2 times a day, PRN NEEDED FOR ANXIETY (VIAL), # 30 tablet, 3 Refills, Maintenance, 12/22/22 16:57:00 EDT, [facility], 175, cm, 12/03/22 11:50:00 EDT, Height, 88.9, kg, 10/21/22 20:41:00 EDT, Dry Weight Start Date: 12/22/22 Status: Ordered lactulose 10 gm/15 ml oral syrup 15 mL, By Mouth, 2 times a day, # 120 mL, 6 Refills, Maintenance, 02/26/23 10:11:00 EDT, [facility], 4, TAKE 15ML BY MOUTH TWO TIMES A DAY, 175, cm, 12/03/22 11:50:00 EDT, Height, 84, kg, 02/12/23 11:30:00 EDT, Dry Weight Start Date: 02/26/23 Status: Ordered Lidoderm 5% film 1 patch, Topically, Daily, remove patches after 12 hours NSAIDS contraindicated High dose tylenol contraindicated remove patches after 12 hours Nueropathy, # 30 patch, 5 Refills, Maintenance, 11/05/22 11:04:00 EDT, [facility], Partial klaudia... Start Date: 11/05/22 Status: Ordered magnesium oxide 400 mg oral tablet See Instructions, TAKE 1 TABLET BY MOUTH TWICE A DAY^1R1,1R4, # 60 tablet, 11 Refills, Maintenance,01/28/23 12:31:00 EDT, [facility], 175, cm, 12/03/22 11:50:00 EDT, Height, 88.9, kg, 10/21/22 20:41:00 EDT, Dry Weight Start Date: 01/28/23 Status: Ordered Melatonin 3 mg oral tablet 1 tablet, By Mouth, Daily at bedtime, PRN NEEDED FOR INSOMNIA (PACKAGE IN TRAY)^1R4, # 60 tablet, 5 Refills, Maintenance, 06/12/22 18:11:00 EST, [facility], 60, TAKE 1 TABLET BY [...] 02/26/23 10:11:00 EDT, Route to Pharmacy Electronically, [facility], 175, cm, 12/03/22 11:50:00 EDT, Height, [...] 11/05/22 11:31:00 EDT, Route to Pharmacy Electronically, [facility], Partial fill upon patient request if the prescription is for a schedule II opioid drug... Start Date: 11/05/22 Status: Ordered Tab-A-Jesse oral tablet 1 tablet, By Mouth, Daily, # 90 tablet, 1 Refills, 12/01/22 12:59:00 EDT, [facility], 28, 1tablet By Mouth Daily, 175, cm, 11/13/22 10:42:00 EDT, Height, 88.9, kg, 10/21/22 20:41:00 EDT, DryWeight Start Date: 12/01/22 Status: Ordered traZODone 50 mg oral tablet 2, tablet, By Mouth, Daily at bedtime, ^2R4., # 60 tablet, Refills 5, Maintenance, 02/26/23 10:11:00 EDT, Route to Pharmacy Electronically, [facility], 175, cm, 12/03/22 11:50:00 EDT, Height,84, [...] 02/09/23 23:18:00 EDT, Route to Pharmacy Electronically, [facility], 175, cm, 12/03/22 11:50:00 EDT, Height, 88.9, kg, 10/21/22 20:41:00 EDT, Dry Weight Start Date: 02/09/23 Status: Ordered Vitamin B6 50 mg oral tablet 1, tablet, By Mouth, Daily, R1., # 90 tablet, Refills 4, Maintenance, 11/16/22 13:39:00 EDT, Route to Pharmacy Electronically, [facility], 175, cm, 11/13/22 10:42:00 EDT, Height, [...] tablet, 3 Refills, Maintenance, 02/26/23 10:11:00 EDT, [facility], 175, cm, 12/03/22 11:50:00 EDT, Height, [...] Team Personnel Name: Alexandra Colmenares RN Position: [facility] ED RN W/OE and Tasks Member Role: Primary Care Nurse Name: Garima Manzano RN Position: [facility] RN Member Role: Primary Care Nurse Name: Malgorzata Marinelli RN Position: [facility] RN Member Role: Primary Care Nurse Name: Joyce Roach RN Position: [facility] RN Member Role: Primary Care Nurse Name: Mary Suazo RN Position: [facility] RN Member Role: Primary Care Nurse Name: Andres Pressley RN Position: [facility] RN Member Role: Primary Care Nurse Name: Jany Baig DO Position: [facility] Physician - Primary Care Member Role: PCP Address: Address: [address] [place] [address] [facility] [place] [address]- Name: Neida Ballard RN Position: [facility] RN Member Role: Primary Care Nurse Name: Kaye Payne RN Position: [facility] RN Member Role: Primary Care Nurse Name: Garima Hutchinson Position: [facility] RN Member Role: Primary Care Nurse Name: Malgorzata Austin Position: [facility] RN Member Role: Primary Care Nurse Name: Ibeth Adams RN Position: [facility] RN Member Role: Primary Care Nurse Name: Torrie Hernandez RN Position: [facility] OB RN Member Role: Primary Care Nurse Name: Gretchen Knutson RN Position: [facility] SN RN Member Role: Primary Care Nurse Name: Aislinn Mckee RN Position: [facility] RN Member Role: Primary Care Nurse Name: Ashley Mcelroy Position: [facility] RN Member Role: Primary Care Nurse Name: Cody Garcia Position: [facility] Associate Professional Member Role: Lifetime Consulting Provider Address: Address: [address] [place] [address]- Name: Ge Covarrubias RN Position: [facility] RN Member Role: Primary Care Nurse Name: Orin Elmore RN Position: [facility] ED RN W/OE and Tasks Member Role: Primary Care Nurse Name: Allegra Liu RN Position: [facility] AMB Nurse Member Role: Primary Care Nurse Name: Shayan Pandya MD Position: [facility] Renal MD Member Role: Lifetime Consulting Physician Address: Address: [address] [place] [address] [address] [facility] [place], [place] [address]- Name: Darlene Rodrigez RN Position: [facility] RN Member Role: Primary Care Nurse Name: Kwan Mills RN Position: [facility] RN Member Role: Primary Care Nurse Name: Dolores Can RN Position: [facility] RN Member Role: Primary Care Nurse Name: Monica Rowell RN Position: S RN Member Role: Primary Care Nurse Name: Jimi Fitzpatrick RN Position: S RN Member Role: Primary Care Nurse Care Team Related Persons Name: DUCBRIANWUMARLEN Address: [place] [address] Name: MARLEN CABEZAS Address: [place] [address] Name: NICK CABEZAS Name: GEMA CABEZAS Address: [place] [address]
--- OUTSIDE RECORDS SUMMARY | 2023-12-15 21:01 | XMS_ITS | Continuity of Care Document ---
Author Organization [facility] Address [address] [place] [address]- Care Team Providers Care Iron Carrier Name Role Phone Jany Baig DO Primary Care Physician [place] [facility] [place] 01/20/[address] [address]- Discharge Disposition: A-D/C Home Attending Physician: Waylon Wharton MD Admitting Physician: Waylon Wharton MD Referring Physician: Not on Staff, Referring [...] n 1Admin Note: #2 2Result Comment: [04/29/2017] [id number] 3Admin Note: FLUARIX 4Admin Note: 3 RDINJ Medications baclofen 10 mg oral tablet 1, tablet, By Mouth, 3 times a day, # 90 tablet, Refills 0, Tot. Refills 0, Maintenance, 01/20/21 15:04:00 EDT, Route to Pharmacy Electronically, [facility], 178, cm, 01/07/21 17:59:00 EDT, Height, 81.4, kg, 12/03/20 13:52:00 EDT, Dry Weight Start Date: 01/20/21 Status: Ordered chantix 1mg tablet 1 tablet, By Mouth, 2 times a day, # 56 tablet, 0 Refills, Acute, 11/22/20 16:13:00 EDT, [facility], 178, cm, 11/12/20 15:32:00 EDT, Height, 84.9, kg, 08/31/20 1:07:00 EDT, Dry Weight Start Date: 11/22/20 Status: Ordered Co Q-10 100 mg oral capsule See Instructions, TAKE 1 CAPSULE BY MOUTH FOUR TIMES DAILY, # 120 capsule, 7 Refills, Maintenance, [facility], 178, cm, 10/22/20 13:17:00 [...] DAY, # 16 Gm, 5 Refills, Maintenance, [facility], 30, USE 1 SPRAY INTO EACH NOSTRIL TWICE A DAY, 178, cm, 01/07/21 17:59:00 EDT, Height, 81.4, kg, 12/03/20 13:52:00 EDT, Dry Weight Start Date: 01/17/21 Status: Ordered gabapentin 600 mg oral tablet 1 tablet, By Mouth, 4 times a day, # 120 tablet, 0 Refills, Maintenance, 01/20/21 15:04:00 EDT, [facility], 178, cm, 01/07/21 17:59:00 EDT, Height, 81.4, kg, 12/03/20 13:52:00 EDT, Dry Weight Start Date: 01/20/21 Status: Ordered hydrOXYzine hydrochloride 25 mg oral tablet 1 TO 2 TABLETS, By Mouth, 3 times a day, PRN NEEDED FOR ANXIETY (VIAL), # 60 tablet, 3 Refills, Maintenance, 10/07/20 16:49:00 EDT, [facility], 178, cm, 08/31/20 11:25:00 EDT, Height, 84.9, kg, 08/31/20 1:07:00 EDT, Dry Weight Start Date: 10/07/20 Status: Ordered Keppra 500 mg oral tablet 1 tablet = 500 mg, By Mouth, 2 times a day, # 14 tablet, 0 Refills, Maintenance, 11/01/20 11:59:00 EDT, Tablet, [facility], Partial fill upon patient request if the prescription is for a schedule II opioid drug., 178, cm, 10/22/20 13:17:... Start Date: 11/01/20 Stop Date: 11/08/20 Status: Ordered melatonin 3 mg oral tablet 1 tablet = 3 mg, By Mouth, Daily at bedtime, PRN for insomnia, # 60 tablet, 4 Refills, Maintenance,07/18/20 17:30:00 EST, Tablet, [facility], 175, cm, 04/02/20 [...] 1 Refills, Maintenance, 10/06/19 15:57:00 EDT, Tablet, [facility], 175, cm, 08/24/19 14:14:00 EDT,Height, 81.2, kg, 02/04/19 1:40:00 EDT, Dry Weight Start Date: 10/06/19 Status: Ordered sertraline 50 mg oral tablet 1 tablet, By Mouth, Daily, TAKE ALONG WITH A 100MG TABLET to equal 150mg daily, # 90 tablet, 1 Refills, Maintenance, 10/06/19 15:57:00 EDT, [facility], 175, cm, 08/24/19 [...] DAY, # 30 tablet, 10 Refills, Maintenance, [facility], 28, TAKE 1 [...] Required Details, Route to Pharmacy Electronically, [facility], 178, cm, 10/22/20... Start Date: 11/01/20 Status: Ordered Vitamin B1 100 mg oral tablet 1, tablet, By Mouth, Daily, # 90 tablet, Refills 2, Tot. Refills 0, Acute, 09/05/20 17:32:00 EDT, Route to Pharmacy Electronically, [facility], 178, cm, 08/31/20 11:25:00 [...] 3 Oxygen Saturation [94-100 %] 99 % (01/20/21 9:30 AM) 98 % (01/20/21 8:09 AM) 100 % (01/20/21 3:41 AM) Pulse Rate [55-90 bpm] 91 bpm *H* (01/20/21 9:30 AM) 88 bpm (01/20/21 8:09 AM) 106 bpm *H* (01/20/21 3:41 AM) Blood Pressure [90-138/55-84 mm Hg] 141/89mm Hg *H* (01/20/21 9:30 AM) 146/92mm Hg *H* (01/20/21 8:09 AM) 163/99mm Hg *H* (01/20/21 3:41 AM) Respiratory Rate [16-30 br/min] 16 br/min (01/20/21 9:30 AM) 18 br/min (01/20/21 8:09 AM) 18 br/min (01/20/21 3:41 AM) Temperature [96.8-100.4 DegF] 97.9 DegF (01/20/21 8:09 AM) 98.4 DegF (01/20/21 3:41 AM) Mode of Delivery (Oxygen) Room air (01/20/21 9:30 AM) Room air (01/20/21 8:09 AM) Room air (01/20/21 3:41 AM) Blood pressure sites Arm, right (01/20/21 3:41 AM) Temperature Route Oral (01/20/21 8:09 AM) Oral (01/20/21 3:41 AM) Social History Social History Type Response Smoking Status 10 or more cigarette s (1/2 pack or more)/day in last 30 days entered on: 02/04/19 Sex
--- OUTSIDE RECORDS SUMMARY | 2023-12-15 21:01 | XMS_ITS | Continuity of Care Document ---
Author Organization [facility] Address [address] [place] [address]- Care Team Providers Care Bromination Equipment Operator Name Role Phone Jany Baig DO Primary Care Physician [place] [facility] [place] 09/25/21 - 10/25/21 [facility] [address] [place] [address]- [place] Allergies, Adverse Reactions, Alerts Substance Reaction [...] (oldterm) 08/02/12 Give n 1Result Comment: [04/29/2017] [id number] 2Admin Note: FLUARIX 3Admin Note: 3 RDINJ 4Admin Note: #2 Medications amLODIPine 5 mg oral tablet 5 mg, 1, tablet, By Mouth, Daily, # 30 tablet, Refills 5, Tot. Refills 5, Maintenance, 10/21/21 10:15:00 EDT, Route to Pharmacy Electronically, [facility], Partial fill upon patient request if the prescription is for a schedule II opioid drug.... Start Date: 10/21/21 Status: Ordered Co Q-10 100 mg oral capsule 1 capsule, By Mouth, 4 times a day, # 120 capsule, 6 Refills, [facility], 174, cm, 02/27/2115:17:00 EDT, Height, 81, kg, 02/27/21 14:06:00 EDT, Dry Weight Start Date: 07/08/21 Status: Ordered fluticasone 50 mcg/inh nasal spray See Instructions, USE 1 SPRAY INTO EACH NOSTRIL TWICE A DAY, # 16 Gm, 5 Refills, [facility], 30, USE 1 SPRAY INTO EACH NOSTRIL TWICE A DAY, 174, cm, 07/14/21 8:16:00 EST, Height, 81, kg, 02/27/21 14:06:00 EDT, Dry Weight Start Date: 08/04/21 Status: Ordered folic acid 1 mg oral tablet 1 mg, 1, tablet, By Mouth, Daily, # 30 tablet, Refills 11, Tot. Refills 11, Maintenance, 10/21/21 10:15:00 EDT, Route to Pharmacy Electronically, [facility], Partial fill upon patient requestif the prescription is for a schedule II opioid remedios... Start Date: 10/21/21 Stop Date: 10/16/22 Status: Ordered gabapentin 300 mg oral capsule 300 mg, 1, capsule, By Mouth, 3 times a day, # 90 capsule, Refills 3, Tot. Refills 3, Maintenance, 10/03/21 17:32:00 EDT, [id number] Partial fill upon patient request if the prescription is for a schedule II... Start Date: 10/03/21 Status: Ordered hydrOXYzine hydrochloride 25 mg oral tablet 1 TO 2 TABLETS, By Mouth, 3 times a day, PRN NEEDED FOR ANXIETY (VIAL), # 60 tablet, 0 Refills, [facility], 174, cm, 08/14/21 14:21:00 EST, [...] Electronically, [facility], Partial fill upon patient request [...] Stop 11/20/21 10:15:00 EDT, 10/21/21 10:15:00 EDT, [facility], 175, cm, 10/10/21 16:04:00 EDT, Height, 87, kg, 09/27/21 21:30:00 EDT, Dry Weight Start Date: 10/21/21 Stop Date: 11/20/21 Status: Ordered Melatonin 3 mg oral tablet 1 tablet, By Mouth, Daily at bedtime, PRN NEEDED FOR INSOMNIA (PACKAGE IN TRAY), # 60 tablet, 5 Refills, Maintenance, 06/02/21 16:17:00 EST, [facility], 28, 1 tablet By Mouth [...] Electronically, [facility], Partial fill upon patient request if the prescription is... Start Date: 10/22/21 Stop Date: 01/15/23 Status: Ordered rifAXIMin 550 mg oral tablet 1 tablet = 550 mg, By Mouth, 2 times a day, please contact GI for refills, # 60 tablet, 0 Refills, Maintenance, 10/21/21 10:15:00 EDT, Tablet, [facility], Partial fill upon patient request ifthe prescription is for a schedule II opioid drug.,... Start Date: 10/21/21 Stop Date: 11/20/21 Status: Ordered Tab-A-Jesse oral tablet 1 tablet, By Mouth, Daily, # 90 tablet, 9 Refills, [facility], [...] Electronically, [facility], 174,cm, 08/14/21 14:21:00 EST, Height, [...]
--- OUTSIDE RECORDS SUMMARY | 2023-12-15 21:01 | XMS_ITS | Continuity of Care Document ---
Author Organization [facility] Address [address] [place] [address] [address] [place] [address]- Care Team Providers Care Practice Management Consultant Name Role Phone Jany Baig DO Primary Care Physician Encounter [facility] Date(s): 07/01/22 - 07/08/22 [facility] [address] [place] [address]- Attending Physician: Nick Pickering Allergies, Adverse Reactions, Alerts Substance Reaction Severity [...] n 1Result Comment: [facility]: [id number] 2Result Comment: [04/29/2017] [id number] 3Admin Note: FLUARIX 4Admin Note: 3 RDINJ 5Admin Note: #2 Medications acetaminophen 500 mg oral tablet 1 tablet, By Mouth, 4 times a day, PRN NEEDED FOR PAIN, MAX 4, PER DAY (VIAL., # 50 tablet, 11 Refills, Maintenance, 03/13/22 8:37:00 EDT, [facility], 175, cm, 01/06/22 10:34:00 EDT, Height, 78.3, kg, 12/26/21 19:05:00 EDT, Dry Weight Start Date: 03/13/22 Status: Ordered amLODIPine 5 mg oral tablet See Instructions, TAKE 1 TABLET BY MOUTH ONCE A DAY^1R1, # 30 tablet, 5 Refills, Maintenance, 05/13/22 16:24:00 EST, [facility], 175, cm, 04/09/22 15:34:00 EDT, Height, 78.3, kg, 12/26/21 19:05:00 EDT, Dry Weight Start Date: 05/13/22 Status: Ordered Co Q-10 100 mg oral capsule 1 capsule, By Mouth, 4 times a day, # 120 capsule, 5 Refills, Maintenance, 04/09/22 15:55:00 EDT, [facility], 175, cm, 04/09/22 15:34:00 EDT, Height, [...] Gm, 5 Refills, Maintenance, 02/18/22 10:02:00 EDT, [facility], 30, USE 1 SPRAY(S) INTO EACH NOSTRIL TWICE A DAY, 175, cm, 01/06/22 10:34:00 EDT, Height, 78.3, kg, 12/26/21 19... Start Date: 02/18/22 Status: Ordered folic acid 1 mg oral tablet 1 mg, 1, tablet, By Mouth, Daily, # 90 tablet, Refills 4, Tot. Refills 4, Maintenance, 10/27/21 10:40:00 EDT, [facility], Partial fill upon patient request if the prescription is for a schedule II opioid drug.... Start Date: 10/27/21 Stop Date: 01/20/23 Status: Ordered furosemide 20 mg oral tablet 1, tablet, By Mouth, Daily, note dose change, # 30 tablet, Refills 2, Tot. Refills 2, Maintenance, 04/09/22 15:53:00 EDT, [facility], 175, cm, 04/09/22 15:34:00 EDT, Height, [...] 60 tablet, 11 Refills,Maintenance, 03/13/22 8:38:00 EDT, [facility], 175, cm, 01/06/22 10:34:00 EDT, Height, 78.3, kg, 12/26/21 19:05:00 EDT, Dry Weight Start Date: 03/13/22 Status: Ordered lactulose 10 gm/15 ml oral syrup See Instructions, TAKE 30ML BY MOUTH THREE TIMES DAILY NEEDED TO ACHEIVE 3-4 BOWL MOVEMENTS PER DAY, # 3,000 mL, 10 Refills, [facility], 30, TAKE 30ML BY MOUTH THREE TIMES DAILY NEEDED TO ACHEIVE 3-4 BOWL MOVEMENTS PER DAY, 174, cm, 02/12... Start Date: 07/02/21 Status: Ordered lidocaine 0.5% topical gel 1 application, Topically, 3 times a day, # 120 Gm, 0 Refills, Acute 12/30/22 17:23:00 EDT, 12/30/2216:23:00 EDT, Gel, [facility], Partial fill upon patient request if the prescription is fora schedule II opioid drug., 1 application Topically... Start Date: 12/30/21 Stop Date: 12/30/22 Status: Ordered Lidoderm 5% film 1 patch, Topically, Daily, remove patches after 12 hours NSAIDS contraindicated High dose tylenol contraindicated, # 30 patch, 5 Refills, Maintenance, 12/26/21 9:33:00 EDT, [facility], Partial fill upon patient request if the prescription i... Start Date: 12/26/21 Status: Ordered magnesium oxide 400 mg oral tablet 1 tablet, By Mouth, 2 times a day, # 60 tablet, 11 Refills, Maintenance, 03/13/22 8:37:00 EDT, [facility], 175, cm, 01/06/22 10:34:00 EDT, Height, 78.3, kg, 12/26/21 19:05:00 EDT, Dry Weight Start Date: 03/13/22 Status: Ordered Melatonin 3 mg oral tablet 1 tablet, By Mouth, Daily at bedtime, PRN NEEDED FOR INSOMNIA (PACKAGE IN TRAY)^1R4, # 60 tablet, 5 Refills, Maintenance, 06/12/22 18:11:00 EST, [facility], 60, TAKE 1 TABLET BY MOUTH [...] 04/09/22 16:00:00 EDT, Route to Pharmacy Electronically, [facility], Partial fill upon patient requestif the prescription is for a schedule II opioid remedios... Start Date: 04/09/22 Stop Date: 10/06/22 Status: Ordered Potassium Chloride (Eqv-K-Tab) 20 mEq oral tablet, extended release 2 tablet, By Mouth, Daily, # 180 tablet, 1 Refills, Maintenance, 05/13/22 9:48:00 EST, [facility], 175, cm, 04/09/22 15:34:00 EDT, Height, 78.3, kg, 12/26/21 19:05:00 EDT, Dry Weight Start Date: 05/13/22 Stop Date: 11/09/22 Status: Ordered pyridoxine 50 mg oral tablet 50 mg, 1, tablet, By Mouth, Daily, for 90 days, # 90 tablet, Refills 4, Tot. Refills 4, Acute 01/15/23 11:42:00 EDT, 10/22/21 11:42:00 EDT, Route to Pharmacy Electronically, [facility], Partial fill upon patient request if [...] 0 Refills, Maintenance, 03/12/22 17:21:00 EDT, Tablet, [facility]/pharmacy #[id number], Partial fill upon patient request if the prescription is for a schedule II opioid drug., 175, cm,... Start Date: 03/12/22 Status: Ordered Tab-A-Jesse oral tablet 1 tablet, By Mouth, Daily, # 90 tablet, 9 Refills, [facility], 28, TAKE 1 TABLET BY MOUTH ONCE A DAY, 174, cm, 07/14/21 8:16:00 EST, Height, 81, kg, 02/27/21 14:06:00 EDT, Dry Weight Start Date: 07/22/21 Status: Ordered traZODone 50 mg oral tablet 2 TO 3 TABLETS, By Mouth, Daily at bedtime, #28 VIAL)^2R4., # 90 tablet, Refills 5, Maintenance, 06/12/22 18:11:00 EST, Route to Pharmacy Electronically, [facility], 179, cm, 06/08/22 7:37:00EST, Height, 84, kg, 06/01/22 12:27:00 EST, Dry Weight Start Date: 06/12/22 Status: Ordered Vitamin B1 100 mg oral tablet 1, tablet, By Mouth, Daily, # 90 tablet, Refills 3, Maintenance, 03/13/22 8:37:00 EDT, Route to Pharmacy Electronically, [facility], 175, cm, 01/06/22 10:34:00 EDT, Height, 78.3, kg, 12/26/2218:05:00 EDT, Dry Weight Start Date: 03/13/22 Status: Ordered Xifaxan 550 mg oral tablet 1 tablet, By Mouth, 2 times a day, ^1R1,1R4., # 60 tablet, 1 Refills, Maintenance, 06/12/22 18:10:00 EST, [facility], 179, cm, 06/08/22 7:37:00 EST, Height, [...] recent to oldest [Reference Range]: 1 Height 179 cm (07/01/22 1:29 PM) Pulse Rate [55-90 bpm] 117 bpm *H* (07/01/22 1:29 PM) Blood Pressure [90-138/55-84 mm Hg] 122/ 75mm Hg (07/01/22 1:29 PM) Temperature [96.8-100.4 DegF] 97.6 DegF (07/01/22 1:29 PM) Blood pressure sites Arm, left (07/01/22 1:29 PM) Temperature Route Temporal (07/01/22 1:29 PM) Social History Social History Type Response Smoking Status 10 or more cigarette s (1/2 pack or more)/day in last 30 days entered on: 02/04/19 Sex Patient Care team information Care Team Personnel Name: Alexandra Colmenares RN Position: [facility] ED RN W/OE and Tasks Member Role: Primary Care Nurse Name: Garima Manzano RN Position: [facility] RN Member Role: Primary Care Nurse Name: Malgorzata Marinelli RN Position: [facility] RN Member Role: Primary Care Nurse Name: Joyce Roach RN Position: [facility] RN Member Role: Primary Care Nurse Name: Mary Suazo RN Position: [facility] RN Member Role: Primary Care Nurse Name: Danyel Davis RN Position: [facility] RN Member Role: Primary Care Nurse Name: Yenny Bernstein Position: [facility] RN Member Role: Primary Care Nurse Name: Andres Pressley RN Position: [facility] RN Member Role: Primary Care Nurse Name: Jany Baig DO Position: [facility] Primary Care Physician Member Role: PCP Address: Address: [address] [place] [address] Adult [facility] [place] [address]- Name: Neida Ballard RN Position: [facility] RN Member Role: Primary Care Nurse Name: Kaye Payne RN Position: [facility] RN Member Role: Primary Care Nurse Name: Garima Hutchinson Position: [facility] RN Member Role: Primary Care Nurse Name: Malgorzata Austin Position: [facility] RN Member Role: Primary Care Nurse Name: Torrie Hernandez RN Position: [facility] OB RN Member Role: Primary Care Nurse Name: Gretchen Knutson RN Position: [facility] SN RN Member Role: Primary Care Nurse Name: Aislinn Mckee RN Position: [facility] RN Member Role: Primary Care Nurse Name: Ashley Mcelroy Position: [facility] RN Member Role: Primary Care Nurse Name: Cody Garcia Position: [facility] Associate Professional Member Role: [employer] Consulting Provider Address: Address: [address] [place] [address]- Name: Ge Covarrubias RN Position: [facility] RN Member Role: Primary Care Nurse Name: Orin Elmore RN Position: [facility] ED RN W/OE and Tasks Member Role: Primary Care Nurse Name: Allegra Liu RN Position: [facility] PCO RN Member Role: Primary Care Nurse Name: Shayan Pandya MD Position: [facility] Renal MD Member Role: Lifetime Consulting Physician Address: Address: [address] [place] [address] [address] [facility], [place] [address]- Name: Darlene Rodrigez RN Position: [facility] RN Member Role: Primary Care Nurse Name: Kwan Mills RN Position: [facility] RN Member Role: Primary Care Nurse Name: Dolores Can RN Position: [facility] RN Member Role: Primary Care Nurse Name: Kim Rendon RN Position: [facility] RN Member Role: Primary Care Nurse Name: Monica Rowell RN Position: [facility] RN Member Role: Primary Care Nurse Care Team Related Persons Name: MARLEN CABEZAS Address: [address] [address] Name: MARLEN CABEZAS Address: [address] [address] Name: NICK CABEZAS Name: GEMA CABEZAS Address: [place] [address]
--- OUTSIDE RECORDS SUMMARY | 2023-12-15 21:01 | XMS_ITS | Continuity of Care Document ---
Author Organization [facility] ter Address [address] [place] [address]- Care Team Providers Care Last Puller Name Role Phone Jany Baig DO Primary Care Physician ( [phone] Encounter [facility] Date(s): 03/16/22 - 03/17/[address] [address]- Encounter Diagnosis Acute alcohol intoxication(Final) - 03/16/22 Discharge Disposition: A-D/C Home Attending Physician: Finn Marin MD Admitting Physician: Finn Marin MD Referring Physician: Not on Staff, Referring [...] (oldterm) 08/02/12 Give n 1Result Comment: [04/29/2017] [id number] 2Admin Note: FLUARIX 3Admin Note: 3 RDINJ 4Admin Note: #2 Medications acetaminophen 500 mg oral tablet 1 tablet, By Mouth, 4 times a day, PRN NEEDED FOR PAIN, MAX 4, PER DAY (VIAL., # 50 tablet, 11 Refills, Maintenance, 03/13/22 8:37:00 EDT, [facility], 175, cm, 01/06/22 10:34:00 EDT, Height, 78.3, kg, 12/26/21 19:05:00 EDT, Dry Weight Start Date: 03/13/22 Status: Ordered amLODIPine 5 mg oral tablet 5 mg, 1, tablet, By Mouth, Daily, # 30 tablet, Refills 5, Tot. Refills 5, Maintenance, 10/21/21 10:15:00 EDT, Route to Pharmacy Electronically, [facility], Partial fill upon patient request if the prescription is for a schedule II opioid drug.... Start Date: 10/21/21 Status: Ordered Co Q-10 100 mg oral capsule 1 capsule, By Mouth, 4 times a day, # 120 capsule, 5 Refills, Maintenance, 02/18/22 12:44:00 EDT, [facility], 175, cm, 01/06/22 10:34:00 EDT, Height, [...] Gm, 5 Refills, Maintenance, 02/18/22 10:02:00 EDT, [facility], 30, USE 1 SPRAY(S) INTO EACH NOSTRIL TWICE A DAY, 175, cm, 01/06/22 10:34:00 EDT, Height, 78.3, kg, 12/26/21 19... Start Date: 02/18/22 Status: Ordered folic acid 1 mg oral tablet 1 mg, 1, tablet, By Mouth, Daily, # 90 tablet, Refills 4, Tot. Refills 4, Maintenance, 10/27/21 10:40:00 EDT, Route to Pharmacy Electronically, [facility], Partial fill upon patient request if the prescription is for a schedule II opioid drug.... Start Date: 10/27/21 Stop Date: 01/20/23 Status: Ordered furosemide 20 mg oral tablet 1, tablet, By Mouth, 2 times a day, # 60 tablet, Refills 0, Maintenance, 03/02/22 10:28:00 EDT, Route to Pharmacy Electronically, [id number], 175, cm, 01/06/22 10:34:00 EDT, Height, 78.3, kg, 12/26/21 19:05:00 EDT, Dry Weight Start Date: 03/02/22 Stop Date: 04/01/22 Status: Ordered gabapentin 300 mg oral capsule 600 mg, 2, capsule, By Mouth, Daily at bedtime, note dose change, # 180 capsule, Refills 4, Tot. Refills 4, Maintenance, 03/04/22 10:17:00 EDT, Route to Pharmacy Electronically, [facility]/pharmacy #[id number], Partial fill upon patient request if the prescription... Start Date: 03/04/22 Stop Date: 05/28/23 Status: Ordered hydrOXYzine hydrochloride 25 mg oral tablet 1 TO 2 TABLETS, By Mouth, 3 times a day, PRN NEEDED FOR ANXIETY (VIAL), # 60 tablet, 11 Refills,Maintenance, 03/13/22 8:38:00 EDT, [facility], 175, cm, 01/06/22 10:34:00 EDT, Height, 78.3, kg, 12/26/21 19:05:00 EDT, Dry Weight Start Date: 03/13/22 Status: Ordered lactulose 10 gm/15 ml oral syrup See Instructions, TAKE 30ML BY MOUTH THREE TIMES DAILY NEEDED TO ACHEIVE 3-4 BOWL MOVEMENTS PER DAY, # 3,000 mL, 10 Refills, [facility], 30, TAKE 30ML BY MOUTH THREE TIMES DAILY NEEDED TO ACHEIVE 3-4 BOWL MOVEMENTS PER DAY, 174, cm, 02/12... Start Date: 07/02/21 Status: Ordered lidocaine 0.5% topical gel 1 application, Topically, 3 times a day, # 120 Gm, 0 Refills, Acute 12/30/22 17:23:00 EDT, 12/30/2216:23:00 EDT, Gel, [facility], Partial fill upon patient request if the prescription is fora schedule II opioid drug., 1 application Topically... Start Date: 12/30/21 Stop Date: 12/30/22 Status: Ordered Lidoderm 5% film 1 patch, Topically, Daily, remove patches after 12 hours NSAIDS contraindicated High dose tylenol contraindicated, # 30 patch, 5 Refills, Maintenance, 12/26/21 9:33:00 EDT, [facility], Partial fill upon patient request if the prescription i... Start Date: 12/26/21 Status: Ordered magnesium oxide 400 mg oral tablet 1 tablet, By Mouth, 2 times a day, # 60 tablet, 11 Refills, Maintenance, 03/13/22 8:37:00 EDT, [facility], 175, cm, 01/06/22 10:34:00 EDT, Height, 78.3, kg, 12/26/21 19:05:00 EDT, Dry Weight Start Date: 03/13/22 Status: Ordered Melatonin 3 mg oral tablet 1 tablet, By Mouth, Daily at bedtime, PRN NEEDED FOR INSOMNIA (PACKAGE IN TRAY), # 60 tablet, 5 Refills, Maintenance, 06/02/21 16:17:00 EST, [facility], 28, 1 [...] 1 Refills, Maintenance, 03/13/22 12:37:00 EDT, [id number], 175, cm, 01/06/22 10:34:00 EDT, Height, 78.3, kg, 12/26/21 19:05:00 EDT, Dry Weight Start Date: 03/13/22 Status: Ordered pyridoxine 50 mg oral tablet 50 mg, 1, tablet, By Mouth, Daily, for 90 days, # 90 tablet, Refills 4, Tot. Refills 4, Acute 01/15/23 11:42:00 EDT, 10/22/21 11:42:00 EDT, [facility], [facility] Refills, Maintenance, 03/12/22 17:21:00 EDT, Tablet, [facility]/pharmacy #[id number], Partial fill upon patient request if the prescription is for a schedule II opioid drug., 175, cm,... Start Date: 03/12/22 Status: Ordered Tab-A-Jesse oral tablet 1 tablet, By Mouth, Daily, # 90 tablet, 9 Refills, [facility], 28, TAKE 1 TABLET [...] Pharmacy Electronically, [facility], 175,cm, 01/06/22 10:34:00 EDT, Height, 78.3, kg, ... Start Date: 01/30/22 Status: Ordered traZODone 50 mg oral tablet See Instructions, TAKE 2-3 TABLETS BY MOUTH AT BEDTIME (ONE DOSE IN VIAL), # 90 tablet, Refills 5, Tot. Refills 5, Maintenance, 12/26/21 9:21:00 EDT, Instructions Replace Required Details, Route to Pharmacy Electronically, [facility], 170, cm,... Start Date: 12/26/21 Status: Ordered Vitamin B1 100 mg oral tablet 1, tablet, By Mouth, Daily, # 90 tablet, Refills 3, Maintenance, 03/13/22 8:37:00 EDT, Route to Pharmacy Electronically, [facility], 175, cm, 01/06/22 10:34:00 EDT, Height, 78.3, kg, 12/26/2218:05:00 EDT, Dry Weight Start Date: 03/13/22 Status: Ordered Xifaxan 550 mg oral tablet 1 tablet, By Mouth, 2 times a day, # 60 tablet, 2 Refills, [facility], 175, cm, 01/06/22 10:34:00 EDT, Height, [...] 2 Oxygen Saturation [94-100 %] 96 % (03/17/22 12:14 AM) 99 % (03/16/22 6:11 PM) Pulse Rate [55-90 bpm] 120 bpm *H* (03/17/22 12:14 AM) 123 bpm *H* (03/16/22 6:11 PM) Blood Pressure [90-138/55-84 mm Hg] 152/ 92mm Hg *H* (03/17/22 12:14 AM) 122/78mm Hg (03/16/22 6:11 PM) Respiratory Rate [16-30 br/min] 18 br/mi n (03/17/22 12:14 AM) 14 br/min *L* (03/16/22 6:11 PM) Temperature [96.8-100.4 DegF] 98 DegF (03/16/22 6:11 PM) Mode of Delivery (Oxygen) Room air (03/17/22 12:14 AM) Room air (03/16/22 6:11 PM) Blood pressure sites Arm, right (03/17/22 12:14 AM) Arm, left (03/16/22 6:11 PM) Temperature Route Oral (03/16/22 6:11 PM) Social History Social History Type Response Smoking Status 10 or more cigarette s (1/2 pack or more)/day in last 30 days entered on: 02/04/19 Sex Patient Care team information Personnel Name: Jany Baig DO Address: Address: [address] [place] [address] [facility] [address]
--- OUTSIDE RECORDS SUMMARY | 2023-12-15 21:01 | XMS_ITS | Continuity of Care Document ---
Author Organization [facility] Address [address] [place] [address]- Care Team Providers Care Sales Agent [employer] Name Role Phone Jany Baig DO Primary Care Physician Encounter [facility] Date(s): 10/29/23 - 11/28/23 [facility] [address] [place] [address]- Attending Physician: Venice Salmon Admitting Physician: Venice [...] (oldterm) 08/02/12 Give n 1Result Comment: [facility]: [id number] 2Result Comment: [04/29/2017] [id number] 3Admin Note: FLUARIX 4Admin Note: 3 RDINJ 5Admin Note: #2 Medications acamprosate 333 mg oral delayed release tablet 2 tablet = 666 mg, By Mouth, 3 times a day, # 180 tablet, 1 Refills, Maintenance, 07/28/23 11:04:00EST, EC Tablet, [facility], Partial fill upon patient request if [...] 07/28/23 11:10:00 EST, Route to Pharmacy Electronically, [facility], Partial fill upon patient request if [...] 07/28/23 12:08:00 EST, Route to Pharmacy Electronically, [facility], 175, cm, 07/28/23 9:11:00 EST, Height, 61.3, kg, 07/12/23 23:27:00 EST, Dry Weight Start Date: 07/28/23 Status: Ordered furosemide 20 mg oral tablet 20 mg, 1, tablet, By Mouth, Every other day, # 30 tablet, Refills 1, Tot. Refills 1, Maintenance, 07/28/23 12:08:00 EST, Route to Pharmacy Electronically, [facility], Partial fill upon patient request if the prescription is for a schedule II... Start Date: 07/28/23 Status: Ordered gabapentin 300 mg oral capsule 300 mg, 1, capsule, By Mouth, Daily at bedtime, note dose/frequency change, # 30 capsule, Refills 1, Tot. Refills 1, Maintenance, 07/28/23 12:09:00 EST, Route to Pharmacy Electronically, [facility], 175, cm, 07/28/23 9:11:00 EST, Height, [...] tablet, 5 Refills, Maintenance, 05/06/23 19:16:00 EST[facility], [facility], TAKE 1 TABLET BY MOUTH ONCE [...] 07/28/23 12:12:00 EST, Route to Pharmacy Electronically, [facility], 175, cm, 07/28/23 9:11:00 EST, Height, 61.3, kg, 07/12/23 23:27:00 EST, Dry Weight Start Date: 07/28/23 Status: Ordered Vitamin B6 50 mg oral tablet 1, tablet, By Mouth, Daily, R1., # 90 tablet, Refills 4, Tot. Refills 4, Maintenance, 07/28/23 12:11:00 EST, Route to Pharmacy Electronically, [facility], 175, cm, 07/28/23 9:11:00 EST, Height, 61.3, kg, 07/12/23 23:27:00 EST, Dry Weight Start Date: 07/28/23 Status: Ordered Xifaxan 550 mg oral tablet See Instructions, 1 tablet By Mouth 2 times a day, # 60 each, 5 Refills, Maintenance, 09/30/23 19:11:00 EDT, [facility], 175, cm, 09/24/23 11:09:00 EDT, Height, [...] Team Personnel Name: Shira Galindo RN Position: [facility] RN Member Role: Primary Care Nurse Name: Estela Martinez RN Position: [facility] RN Member Role: Primary Care Nurse Name: Alexandra Colmenares RN Position: [facility] ED RN W/OE and Tasks Member Role: Primary Care Nurse Name: Garima Manzano RN Position: [facility] RN Member Role: Primary Care Nurse Name: Malgorzata Marinelli RN Position: S RN Member Role: Primary Care Nurse Name: Joyce Roach RN Position: [facility] ED RN W/OE and Tasks Member Role: Primary Care Nurse Name: Lucina Peralta RN Position: [facility] RN Member Role: Primary Care Nurse Name: Jean Epstein RN Position: [facility] RN Member Role: Primary Care Nurse Name: Maria Esther Craig LPN Position: [facility] RN Member Role: Primary Care Nurse Name: Kaye Comer RN Position: [facility] RN Member Role: Primary Care Nurse Name: Kenyatta Kirby RN Position: [facility] RN Member Role: Primary Care Nurse Name: Andres Pressley RN Position: [facility] RN Member Role: Primary Care Nurse Name: Jany Baig DO Position: [facility] Physician - Primary Care Member Role: PCP Address: Address: [address] [place] [address] Adult [facility] [place] [address]- Name: Mary Haines RN Position: [facility] RN Member Role: Primary Care Nurse Name: Garima Curry RN Position: [facility] RN Member Role: Primary Care Nurse Name: Malgorzata Austin RN Position: [facility] RN Member Role: Primary Care Nurse Name: Ibeth Adams RN Position: [facility] RN Member Role: Primary Care Nurse Name: Torrie Hernandez RN Position: [facility] OB RN Member Role: Primary Care Nurse Name: Yoselin Jones RN Position: [facility] RN Member Role: Primary Care Nurse Name: Gretchen Knutson RN Position: [facility] SN RN Member Role: Primary Care Nurse Name: Aislinn Mckee RN Position: [facility] RN Member Role: Primary Care Nurse Name: Ashley Mcelroy RN Position: [facility] RN Member Role: Primary Care Nurse Name: Ashok Kevin RN Position: [facility] RN Member Role: Primary Care Nurse Name: Eben Villavicencio RN Position: [facility] RN Member Role: Primary Care Nurse Name: Cody Garcia Position: [facility] Associate Professional Member Role: Lifetime Consulting Provider Address: Address: [address] [place] [address]- [place] Name: Paige Nascimento RN Position: [facility] RN Member Role: Primary Care Nurse Name: Sue Combs RN Position: [facility] RN Member Role: Primary Care Nurse Name: Ge Covarrubias RN Position: [facility] RN Member Role: Primary Care Nurse Name: Orin Elmore RN Position: [facility] ED RN W/OE and Tasks Member Role: Primary Care Nurse Name: Noe LOUIE, Allegra Elliott Position: [facility] AMB Nurse Member Role: Primary Care Nurse Name: Shayan Pandya MD Position: [facility] Renal MD Member Role: Lifetime Consulting Physician Address: Address: [address] [facility] [address] [facility], [place] [address]- Name: Kimberley Pittman RN Position: [facility] RN Member Role: Primary Care Nurse Name: Darlene Rodrigez RN Position: [facility] RN Member Role: Primary Care Nurse Name: Alison Helton RN Position: [facility] RN Member Role: Primary Care Nurse Name: Dixie Duke RN Position: [facility] RN Member Role: Primary Care Nurse Name: Kwan Mills RN Position: [facility] ED RN W/OE and Tasks Member Role: Primary Care Nurse Name: Ingrid Verdugo RN Position: [facility] RN Member Role: Primary Care Nurse Name: Terra Fishman RN Position: [facility] RN Member Role: Primary Care Nurse Name: Monica Rowell RN Position: [facility] RN Member Role: Primary Care Nurse Name: Anita Hodges RN Position: [facility] RN Member Role: Primary Care Nurse Name: Jimi Fitzpatrick RN Position: [facility] RN Member Role: Primary Care Nurse Care Team Related Persons Name: MARLEN CABEZAS Address: [address] [place] [address] Name: DUCBRIANWU MARLEN Address: [address] [place] [address] Name: NICK CABEZAS Name: GEMA CABEZAS Address: [address] [place] [address] Name: ELTON CHENG Address: [address] [place] [address] Name: LAURO QUEVEDO
--- OUTSIDE RECORDS SUMMARY | 2023-12-15 21:01 | XMS_ITS | Continuity of Care Document ---
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 Role Phone Jany Baig DO Primary Care Physician Encounter [facility] Date(s): 02/07/21 - 03/09/21 [facility] [address] [place] [address]- Allergies, Adverse Reactions, Alerts Substance Reaction Severity [...] (oldterm) 08/02/12 Give n 1Result Comment: [04/29/2017] [id number] 2Admin Note: FLUARIX 3Admin Note: 3 RDINJ 4Admin Note: #2 Medications baclofen 10 mg oral tablet 1, tablet, By Mouth, 3 times a day, # 90 tablet, Refills 0, Route to Pharmacy Electronically, [facility], 174, cm, 02/11/21 12:09:00 EDT, Height, 86.6, kg, 02/06/21 14:20:00 EDT, Dry Weight Start Date: 02/19/21 Status: Ordered chantix 1mg tablet 1 tablet, By Mouth, 2 times a day, # 56 tablet, 0 Refills, Acute, 11/22/20 16:13:00 EDT, [facility], 178, cm, 11/12/20 15:32:00 EDT, Height, 84.9, kg, 08/31/20 1:07:00 EDT, Dry Weight Start Date: 11/22/20 Status: Ordered Co Q-10 100 mg oral capsule See Instructions, TAKE 1 CAPSULE BY MOUTH FOUR TIMES DAILY, # 120 capsule, 7 Refills, Maintenance, [facility], 178, cm, 10/22/20 13:17:00 EDT, Height, 84.9, kg, 08/31/20 1:07:00 EDT, Dry Weight Start Date: 11/01/20 Status: Ordered Co Q-10 100 mg oral capsule 1 capsule, By Mouth, 4 times a day, # 120 capsule, 11 Refills, Maintenance, 11/21/19 10:36:00 EDT, [facility] #[id number], 175, cm, 08/24/19 14:14:00 EDT, Height, 81.2, kg, 02/04/19 1:40:00 EDT, Dry Weight Start Date: 11/21/19 Stop Date: 11/15/20 Status: Ordered fluticasone 50 mcg/inh nasal spray See Instructions, USE 1 SPRAY INTO EACH NOSTRIL TWICE A DAY, # 16 Gm, 5 Refills, Maintenance, [facility], 30, USE 1 SPRAY INTO EACH NOSTRIL TWICE A DAY, 178, cm, 01/07/21 17:59:00 EDT, Height, 81.4, kg, 12/03/20 13:52:00 EDT, Dry Weight Start Date: 01/17/21 Status: Ordered gabapentin 600 mg oral tablet 1 tablet, By Mouth, 4 times a day, # 120 tablet, 0 Refills, [facility], 174, cm, 02/11/21 12:09:00 EDT, Height, 86.6, kg, 02/06/21 14:20:00 EDT, Dry Weight Start Date: 02/19/21 Status: Ordered hydrOXYzine hydrochloride 25 mg oral tablet 1 TO 2 TABLETS, By Mouth, 3 times a day, PRN NEEDED FOR ANXIETY (VIAL), # 60 tablet, 2 Refills, [facility], 174, cm, 02/11/21 12:09:00 EDT, Height, 86.6, kg, 02/06/21 14:20:00 EDT, Dry Weight Start Date: 02/19/21 Status: Ordered melatonin 3 mg oral tablet 1 tablet = 3 mg, By Mouth, Daily at bedtime, PRN for insomnia, # 60 tablet, 4 Refills, Maintenance,07/18/20 17:30:00 EST, Tablet, [facility], 175, cm, 04/02/20 0:35:00 [...] 1 Refills, Maintenance, 10/06/19 15:57:00 EDT, Tablet, [facility], 175, cm, 08/24/19 14:14:00 EDT,Height, 81.2, kg, 02/04/19 1:40:00 EDT, Dry Weight Start Date: 10/06/19 Status: Ordered sertraline 50 mg oral tablet 1 tablet, By Mouth, Daily, TAKE ALONG WITH A 100MG TABLET to equal 150mg daily, # 90 tablet, 1 Refills, Maintenance, 10/06/19 15:57:00 EDT, [facility], 175, cm, 08/24/19 14:14:00 EDT, Height,81.2, kg, 02/04/19 1:40:00 EDT, Dry Weight Start Date: 10/06/19 Status: Ordered sildenafil 50 mg oral tablet 1 tablet = 50 mg, By Mouth, Daily, PRN erectile dysfunction, 1 hour before sexual activity, # 6 tablet, 5 Refills, Maintenance, 03/11/20 14:37:00 EDT, Tablet, [facility]/pharm[facility] #[id number], 175, cm, 08/24/19 14:14:00 EDT, Height, 81.2, kg, 02/04/19 1:40:00 EDT,... Start Date: 03/11/20 Status: Ordered Tab-A-Jesse oral tablet See Instructions, TAKE 1 TABLET BY MOUTH ONCE A DAY, # 30 tablet, 10 Refills, Maintenance, [facility], 28, TAKE 1 TABLET BY MOUTH ONCE A DAY, 175, cm, 04/02/20 0:35:00 EDT, Height, 100, kg, 04/02/20 0:35:00 EDT, Dry Weight Start Date: 07/18/20 Status: Ordered tranexamic acid 650 mg oral tablet 1 tablet = 650 mg, By Mouth, Daily, # 21 tablet, 0 Refills, Maintenance, 10/22/20 17:52:00 EDT, Tablet, [facility]/pharmacy #[id number], Partial fill upon patient [...] Route to Pharmacy Electronically, [facility], 174,cm, 02/11/21 12:09:00 EDT, Height, 86.6, kg, ... Start Date: 02/15/21 Status: Ordered Vitamin B1 100 mg oral tablet 1, tablet, By Mouth, Daily, # 90 tablet, Refills 2, Tot. Refills 0, Acute, 09/05/20 17:32:00 EDT, Route to Pharmacy Electronically, [facility], 178, cm, 08/31/20 11:25:00 EDT, Height, 84.9, kg, 08/31/20 1:07:00 EDT, Dry Weight Start Date: 09/05/20 Status: Ordered Xifaxan 550 mg oral tablet 1 tablet, By Mouth, 2 times a day, # 60 tablet, 0 Refills, Maintenance, 04/16/20 14:45:00 EST, [facility] #[id number], 175, cm, 04/02/20 0:35:00 [...]
--- OUTSIDE RECORDS SUMMARY | 2023-12-15 21:01 | XMS_ITS | Continuity of Care Document ---
Author Organization [facility] Address [address] [place] [address]- Care Team Providers Care Web Development Manager Name Role Phone Jany Baig DO Primary Care Physician Encounter [facility] Date(s): 11/21/21 - 03/21/22 [facility] [address] [place] [address]- Attending Physician: Cristofer Steiner MD Admitting Physician: Cristofer Steiner MD Referring Physician: Not on Staff, Referring [...] (oldterm) 08/02/12 Give n 1Result Comment: [04/29/2017] [id number] 2Admin Note: FLUARIX 3Admin Note: 3 RDINJ 4Admin Note: #2 Medications acetaminophen 500 mg oral tablet 1 tablet, By Mouth, 4 times a day, PRN NEEDED FOR PAIN, MAX 4, PER DAY (VIAL., # 50 tablet, 11 Refills, Maintenance, 03/13/22 8:37:00 EDT, [facility], 175, cm, 01/06/22 10:34:00 EDT, Height, 78.3, kg, 12/26/21 19:05:00 EDT, Dry Weight Start Date: 03/13/22 Status: Ordered amLODIPine 5 mg oral tablet 5 mg, 1, tablet, By Mouth, Daily, # 30 tablet, Refills 5, Tot. Refills 5, Maintenance, 10/21/21 10:15:00 EDT, [facility], [facility], Partial fill upon patient request if the prescription is for a schedule II opioid drug.... Start Date: 10/21/21 Status: Ordered Co Q-10 100 mg oral capsule 1 capsule, By Mouth, 4 times a day, # 120 capsule, 5 Refills, Maintenance, 02/18/22 12:44:00 EDT, [facility], [facility], cm, 01/06/22 10:34:00 EDT, Height, [...] Gm, 5 Refills, Maintenance, 02/18/22 10:02:00 EDT, [facility], 30, USE 1 SPRAY(S) INTO EACH [...] 03/19/22 9:46:00 EDT, [facility], [facility] [...] 03/04/22 10:17:00 EDT, [id number] Partial fill upon patient request if the prescription... Start Date: 03/04/22 Stop Date: 05/28/23 Status: Ordered hydrOXYzine hydrochloride 25 mg oral tablet 1 TO 2 TABLETS, By Mouth, 3 times a day, PRN NEEDED FOR ANXIETY (VIAL), # 60 tablet, 11 Refills,Maintenance, 03/13/22 8:38:00 EDT, [facility], 175, cm, 01/06/22 10:34:00 EDT, Height, 78.3, kg, 12/26/21 19:05:00 EDT, Dry Weight Start Date: 03/13/22 Status: Ordered lactulose 10 gm/15 ml oral syrup See Instructions, TAKE 30ML BY MOUTH THREE TIMES DAILY NEEDED TO ACHEIVE 3-4 BOWL MOVEMENTS PER DAY, # 3,000 mL, 10 Refills, [facility], 30, TAKE 30ML BY MOUTH THREE TIMES DAILY NEEDED TO ACHEIVE 3-4 BOWL MOVEMENTS PER DAY, 174, cm, 02/12... Start Date: 07/02/21 Status: Ordered lidocaine 0.5% topical gel 1 application, Topically, 3 times a day, # 120 Gm, 0 Refills, Acute 12/30/22 17:23:00 EDT, 12/30/2216:23:00 EDT, Gel, [facility], Partial fill upon patient request if the prescription is fora schedule II opioid drug., 1 application Topically... Start Date: 12/30/21 Stop Date: 12/30/22 Status: Ordered Lidoderm 5% film 1 patch, Topically, Daily, remove patches after 12 hours NSAIDS contraindicated High dose tylenol contraindicated, # 30 patch, 5 Refills, Maintenance, 12/26/21 9:33:00 EDT, [facility], Partial fill upon patient request if the prescription i... Start Date: 12/26/21 Status: Ordered magnesium oxide 400 mg oral tablet 1 tablet, By Mouth, 2 times a day, # 60 tablet, 11 Refills, Maintenance, 03/13/22 8:37:00 EDT, [facility], 175, cm, 01/06/22 10:34:00 EDT, Height, [...] Maintenance, 03/13/22 12:37:00 EDT, [id number], 175, cm, 01/06/22 10:34:00 EDT, Height, 78.3, [...] 03/12/22 17:21:00 EDT, Tablet, [facility]/pharmacy #[id number], Partial fill upon patient request if the [...] Electronically, [facility], 175,cm, 01/06/22 10:34:00 EDT, Height, 78.3, [...] 03/13/22 8:37:00 EDT, Route to Pharmacy Electronically, [facility], 175, cm, 01/06/22 10:34:00 EDT, Height, 78.3, kg, 12/26/2218:05:00 EDT, Dry Weight Start Date: 03/13/22 Status: Ordered Xifaxan 550 mg oral tablet 1 tablet, By Mouth, 2 times a day, # 60 tablet, 2 Refills, [facility], 175, cm, 01/06/22 10:34:00 EDT, Height, [...] Personnel Name: Jany Baig DO Address: Address: [address] [place] [address] Adult [facility] Pediatric [place], [place] [address]
--- OUTSIDE RECORDS SUMMARY | 2023-12-15 21:01 | XMS_ITS | Continuity of Care Document ---
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 Role Phone Jany Baig DO Primary Care Physician ( [phone] Encounter [facility] Date(s): 07/02/23 - 08/01/23 [facility] [address] [place], [place] [address] Allergies, Adverse Reactions, Alerts Substance [...] 1Result Comment: [facility]: [id number] 2Result Comment: [04/29/2017] 10565-868-31 3Admin Note: FLUARIX 4Admin Note: 3 RDINJ [...] tablet, 2 Refills, Maintenance, 07/28/23 11:06:00 EST, [facility], 175, cm, 07/28/23 9:11:00 EST, Height, [...] 07/28/23 11:10:00 EST, [facility], [facility] [...] 08/05/23 19:16:00 EST, 07/29/23 19:16:00 EST, Tablet, [facility], Partial fill upon patient request if [...] Gm, 12 Refills, Maintenance, 07/28/23 11:06:00 EST, [facility], 28, APPLY TOPICALLY TO AFFECTED AREA(S) [...] 08/05/23 19:21:00 EST, 07/29/23 19:21:00 EST, Capsule, [facility], Partial fill upon patient requestif the [...] Gm, 1 Refills, Maintenance, 07/28/23 12:07:00 EST, [facility], 30, USE 1 SPRAY(S) INTO EACH [...] 07/28/23 12:08:00 EST, Route to Pharmacy Electronically, [facility], 175, cm, 07/28/23 9:11:00 EST, Height, 61.3, kg, 07/12/23 23:27:00 EST, Dry Weight Start Date: 07/28/23 Status: Ordered furosemide 20 mg oral tablet 20 mg, 1, tablet, By Mouth, Every other day, # 30 tablet, Refills 1, Tot. Refills 1, Maintenance, 07/28/23 12:08:00 EST, Route to Pharmacy Electronically, [facility], Partial fill upon patient request if the prescription is for a schedule II... Start Date: 07/28/23 Status: Ordered gabapentin 300 mg oral capsule 300 mg, 1, capsule, By Mouth, Daily at bedtime, note dose/frequency change, # 30 capsule, Refills 1, Tot. Refills 1, Maintenance, 07/28/23 12:09:00 EST, Route to Pharmacy Electronically, [facility], 175, cm, 07/28/23 9:11:00 EST, Height, [...] tablet, 3 Refills, Maintenance, 07/28/23 12:10:00 EST, [facility], 175, cm, 07/28/23 9:11:00 EST, Height, 61.3, kg,07/12/23 23:27:00 EST, Dry Weight Start Date: 07/28/23 Status: Ordered lactulose 10 gm/15 ml oral syrup 30 mL = 20 Gm, By Mouth, 3 times a day, for 30 days, # 2,700 mL, 2 Refills, Acute 10/26/23 12:13:00EDT, 07/28/23 12:13:00 EST, Syrup, [facility], Partial fill upon patient request if [...] 60 tablet, 11 Refills, Maintenance,07/28/23 12:09:00 EST, [facility], 175, cm, 07/28/23 9:11:00 EST, Height, [...] tablet, 5 Refills, Maintenance, 07/28/23 12:09:00 EST, [facility], 60, 1 tablet By Mouth Daily [...] 07/28/23 12:11:00 EST, Route to Pharmacy Electronically, [facility], 175, cm, 07/28/23 9:11:00EST, Height, [...] 07/28/23 12:12:00 EST, Route to Pharmacy Electronically, [facility], 175, cm, 07/28/23 9:11:00 EST, Height, 61.3, kg, 07/12/23 23:27:00 EST, Dry Weight Start Date: 07/28/23 Status: Ordered spironolactone 25 mg oral tablet 1, tablet, By Mouth, Daily, ^1R2., # 30 tablet, Refills 5, Tot. Refills 5, Maintenance, 04/14/23 12:41:00 EDT, Route to Pharmacy Electronically, [facility], 175, cm, 03/22/23 6:50:00 EDT, Height, 77.5, kg, 03/20/23 11:30:00 EDT, Dry Weight Start Date: 04/14/23 Status: Ordered Tab-A-Jesse oral tablet 1 tablet, By Mouth, Daily, R1., # 30 tablet, 5 Refills, Maintenance, 05/06/23 19:16:00 EST, [facility], 30, TAKE 1 TABLET BY [...] 07/28/23 12:12:00 EST, Route to Pharmacy Electronically, [facility], 175, cm, 07/28/23 9:11:00 EST, Height, [...] 02/09/23 23:18:00 EDT, Route to Pharmacy Electronically, [facility], 175, cm, 12/03/22 11:50:00 EDT, Height, 88.9, kg, 10/21/22 20:41:00 EDT, Dry Weight Start Date: 02/09/23 Status: Ordered Vitamin B1 100 mg oral tablet 1, tablet, By Mouth, Daily, # 90 tablet, Refills 3, Tot. Refills 3, Maintenance, 07/28/23 12:12:00 EST, [facility], [facility] [...] 07/28/23 12:11:00 EST, Route to Pharmacy Electronically, [facility], 175, cm, 07/28/23 9:11:00 EST, Height, [...] each, 1 Refills, Maintenance, 07/28/23 14:33:00 EST, [facility], 175, cm, 07/28/23 9:11:00 EST, Height, [...] Team Personnel Name: Shira Galindo RN Position: [facility] RN Member Role: Primary Care Nurse Name: Lisa Nunez RN Position: S RN Member Role: Primary Care Nurse Name: Alexandra Colmenares RN Position: [facility] ED RN W/OE and Tasks Member Role: Primary Care Nurse Name: Garima Manzano RN Position: [facility] RN Member Role: Primary Care Nurse Name: Malgorzata Marinelli RN Position: S RN Member Role: Primary Care Nurse Name: Joyce Roach RN Position: [facility] ED RN W/OE and Tasks Member Role: Primary Care Nurse Name: Mary Suazo RN Position: [facility] RN Member Role: Primary Care Nurse Name: Lucina Peralta RN Position: [facility] RN Member Role: Primary Care Nurse Name: Maria Esther Craig LPN Position: S RN Member Role: Primary Care Nurse Name: Andres Pressley RN Position: [facility] ED RN W/OE and Tasks Member Role: Primary Care Nurse Name: Jany Baig DO Position: [facility] Physician - Primary Care Member Role: PCP Address: Address: [address] [place] [address] Adult [facility] Pediatric [facility] [place], [place] [address] Name: Kaye Payne RN Position: S RN Member Role: Primary Care Nurse Name: Garima Hutchinson Position: S RN Member Role: Primary Care Nurse Name: Malgorzata Austin Position: S RN Member Role: Primary Care Nurse Name: Ibeth Adams RN Position: [facility] RN Member Role: Primary Care Nurse Name: Torrie Hernandez RN Position: [facility] OB RN Member Role: Primary Care Nurse Name: Gretchen Knutson RN Position: [facility] SN RN Member Role: Primary Care Nurse Name: Aislinn Mckee RN Position: [facility] RN Member Role: Primary Care Nurse Name: Ashley Mcelroy Position: [facility] RN Member Role: Primary Care Nurse Name: Ashok Kevin RN Position: [facility] RN Member Role: Primary Care Nurse Name: Cody Garcia Position: [facility] Associate Professional Member Role: Lifetime Consulting Provider Address: Address: [address] [place] [address] Name: Paige Nascimento RN Position: [facility] RN Member Role: Primary Care Nurse Name: Ge Covarrubias RN Position: [facility] RN Member Role: Primary Care Nurse Name: Orin Elmore RN Position: [facility] ED RN W/OE and Tasks Member Role: Primary Care Nurse Name: Allegra Liu RN Position: [facility] AMB Nurse Member Role: Primary Care Nurse Name: Shayan Pandya MD Position: [facility] Renal MD Member Role: Lifetime Consulting Physician Address: Address: [address] [place] [address] [address] [facility], [address] Name: Kimberley Pittman RN Position: [facility] RN Member Role: Primary Care Nurse Name: Darlene Rodrigez RN Position: [facility] RN Member Role: Primary Care Nurse Name: Dixie Duke RN Position: [facility] RN Member Role: Primary Care Nurse Name: Kwan Mills RN Position: [facility] ED RN W/OE and Tasks Member Role: Primary Care Nurse Name: Ingrid Verdugo RN Position: [facility] RN Member Role: Primary Care Nurse Name: Monica Rowell RN Position: [facility] RN Member Role: Primary Care Nurse Name: Jimi Fitzpatrick RN Position: [facility] RN Member Role: Primary Care Nurse Care Team Related Persons Name: MARLEN CABEZAS Address: home [address] [place] [id number] Name: MARLEN CABEZAS Address: home [address] [place] [id number] Name: NICK CABEZAS Name: GEMA CABEZAS Address: home [address] [place] [address] Name: ELTON CHENG Address: [address] [place] [address]
--- OUTSIDE RECORDS SUMMARY | 2023-12-15 21:01 | XMS_ITS | Continuity of Care Document ---
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 Role Phone Jany Baig DO Primary Care Physician Encounter [facility] Date(s): 07/15/21 - 08/22/[address] [address]- Attending Physician: Cristofer Steiner MD Admitting Physician: [...] (oldterm) 08/02/12 Give n 1Result Comment: [04/29/2017] [id number] 2Admin Note: FLUARIX 3Admin Note: 3 RDINJ 4Admin Note: #2 Medications baclofen 10 mg oral tablet 1, tablet, By Mouth, 3 times a day, # 90 tablet, Refills 0, Route to Pharmacy Electronically, [facility], 174, cm, 08/14/21 14:21:00 EST, Height, 81, kg, 02/27/21 14:06:00 EDT, Dry Weight Start Date: 08/18/21 Status: Ordered Co Q-10 100 mg oral capsule 1 capsule, By Mouth, 4 times a day, # 120 capsule, 6 Refills, [facility], 174, cm, 02/27/2115:17:00 EDT, Height, 81, kg, 02/27/21 14:06:00 EDT, Dry Weight Start Date: 07/08/21 Status: Ordered fluticasone 50 mcg/inh nasal spray See Instructions, USE 1 SPRAY INTO EACH NOSTRIL TWICE A DAY, # 16 Gm, 5 Refills, [facility], 30, USE 1 SPRAY INTO EACH NOSTRIL TWICE A DAY, 174, cm, 07/14/21 8:16:00 EST, Height, 81, kg, 02/27/21 14:06:00 EDT, Dry Weight Start Date: 08/04/21 Status: Ordered gabapentin 600 mg oral tablet 1 tablet, By Mouth, 4 times a day, # 120 tablet, 0 Refills, [facility], 174, cm, 08/14/21 14:21:00 EST, Height, 81, kg, 02/27/21 14:06:00 EDT, Dry Weight Start Date: 08/18/21 Status: Ordered hydrOXYzine hydrochloride 25 mg oral tablet 1 TO 2 TABLETS, By Mouth, 3 times a day, PRN NEEDED FOR ANXIETY (VIAL), # 60 tablet, 0 Refills, [facility], 174, cm, 08/14/21 14:21:00 EST, Height, 81, kg, 02/27/21 14:06:00 EDT, Dry Weight Start Date: 08/18/21 Status: Ordered lactulose 10 gm/15 ml oral syrup See Instructions, TAKE 30ML BY MOUTH THREE TIMES DAILY NEEDED TO ACHEIVE 3-4 BOWL MOVEMENTS PER DAY, # 3,000 mL, 10 Refills, [facility], 30, TAKE 30ML BY MOUTH THREE TIMES DAILY NEEDED TO ACHEIVE 3-4 BOWL MOVEMENTS PER DAY, 174, cm, 02/12... Start Date: 07/02/21 Status: Ordered Melatonin 3 mg oral tablet 1 tablet, By Mouth, Daily at bedtime, PRN NEEDED FOR INSOMNIA (PACKAGE IN TRAY), # 60 tablet, 5 Refills, Maintenance, 06/02/21 16:17:00 EST, [facility], 28, 1 tablet By Mouth Daily at bedtime,PRN: NEEDED FOR INSOMNIA (PACKAGE IN TRAY), 17... Start Date: 06/02/21 Status: Ordered nicotine 14 mg/24 hr transdermal film, extended release 1 patch, Topically, Daily, for 28 days, # 28 patch, 0 Refills, Acute 09/05/21 15:22:00 EDT, 08/08/21 15:22:00 EST, Patch, [facility]/pharmacy #[id number], Partial fill upon patient request if the prescription is for a schedule II opioid drug., 1 patch Topically Da... Start Date: 08/08/21 Stop Date: 09/05/21 Status: Ordered nicotine 21 mg/24 hr transdermal film, extended release 1 patch, Topically, Daily, for 28 days, # 28 patch, 0 Refills, Acute 09/05/21 15:29:00 EDT, 08/08/21 15:29:00 EST, Patch, [facility]acy #[id number], Partial fill upon patient request if the prescription is for a schedule II opioid drug., 1 patch Topically Da... Start Date: 08/08/21 Stop Date: 09/05/21 Status: Ordered Nicotine 7 mg/24 hour patch 1 patch, Topically, Daily, for 28 days, # 28 patch, 0 Refills, Acute 09/05/21 15:22:00 EDT, 08/08/21 15:22:00 EST, Patch, [facility]/pharmacy #[id number], Partial fill upon patient request if the prescription is for a schedule II opioid drug., 1 patch Topically Da... Start Date: 08/08/21 Stop Date: 09/05/21 Status: Ordered OXcarbazepine 150 mg oral tablet 150 mg, 1, tablet, By Mouth, 2 times a day, Refills 0, Maintenance, 02/27/21 14:40:00 EDT, ; Start Date: 02/27/21 Status: Ordered OXcarbazepine 300 mg oral tablet 300 mg, 1, tablet, By Mouth, 2 times a day, Refills 0, Maintenance, 02/27/21 14:40:00 EDT, ; Start Date: 02/27/21 Status: Ordered OXcarbazepine 600 mg oral tablet 1 tablet = 600 mg, By Mouth, 2 times a day, Maintenance, 08/21/21 15:10:00 EST, Tablet, ; Start Date: 08/21/21 Status: Ordered pantoprazole 40 mg oral delayed [...] 1 Refills, Maintenance, 10/06/19 15:57:00 EDT, Tablet, [facility], 175, cm, 08/24/19 14:14:00 EDT,Height, 81.2, kg, 02/04/19 1:40:00 EDT, Dry Weight Start Date: 10/06/19 Status: Ordered sertraline 50 mg oral tablet 1 tablet, By Mouth, Daily, TAKE ALONG WITH A 100MG TABLET to equal 150mg daily, # 90 tablet, 1 Refills, Maintenance, 10/06/19 15:57:00 EDT, [facility], 175, cm, 08/24/19 14:14:00 [...] Mouth, Daily, # 90 tablet, 9 Refills, [facility], 28, TAKE 1 TABLET [...] Replace Required Details, Route to Pharmacy Electronically, [facility], 174,cm, 08/14/21 14:21:00 EST, Height, 81, kg, 02/27/21... Start Date: 08/18/21 Status: Ordered varenicline 0.5 mg tablet 1 tablet = 0.5 mg, By Mouth, 2 times a day, Days 1 to 3: 0.5 mg once daily. Days 4 to 7: 0.5 mg twice daily. then start new script for 1 mg twice a day, # 11 tablet, 0 Refills, Maintenance, 08/08/21 15:24:00 EST, Tablet, [facility]/pharmacy #[id number], Partial f... Start Date: 08/08/21 Status: Ordered varenicline 1mg tablet 1 tablet = 1 mg, By Mouth, 2 times a day, to start after 0.5 mg tabs, # 56 tablet, 0 Refills, Maintenance, 08/08/21 15:26:00 EST, Tablet, [facility]/pharmacy #[id number], Partial fill upon patient request if the prescription is for a schedule II opioid drug., 174,... Start Date: 08/08/21 Status: Ordered Vitamin B1 100 mg oral tablet 1, tablet, By Mouth, Daily, # 90 tablet, Refills 1, Route to Pharmacy Electronically, [facility], 174, cm, 02/27/21 15:17:00 EDT, Height, [...]
--- OUTSIDE RECORDS SUMMARY | 2023-12-15 21:01 | XMS_ITS | Continuity of Care Document ---
Author Organization [facility] Address [address] [place] [address]- Care Team Providers Care Regulatory Intern Name Role Phone Jany Baig DO Primary Care Physician ( [phone] Encounter [facility] Date(s): 03/11/21 - 05/28/21 [facility] [address] [place] [address]- Attending Physician: Tash Conde MD Admitting Physician: Tash Conde MD Referring Physician: Jany Baig DO Allergies, [...] (oldterm) 08/02/12 Give n 1Result Comment: [04/29/2017] [id number] 2Admin Note: FLUARIX 3Admin Note: 3 RDINJ 4Admin Note: #2 Medications baclofen 10 mg oral tablet 1, tablet, By Mouth, 3 times a day, # 90 tablet, Refills 0, Route to Pharmacy Electronically, [facility], 174, cm, 02/27/21 15:17:00 EDT, [...] capsule, 11 Refills, Maintenance, 11/21/19 10:36:00 EDT, [facility]/pharmacy #[id number], 175, cm, 08/24/19 14:14:00 EDT, Height, 81.2, kg, 02/04/19 1:40:00 EDT, Dry Weight Start Date: 11/21/19 Stop Date: 11/15/20 Status: Ordered fluticasone 50 mcg/inh nasal spray See Instructions, USE 1 SPRAY INTO EACH NOSTRIL TWICE A DAY, # 16 Gm, 5 Refills, Maintenance, [facility], 30, USE 1 SPRAY INTO EACH NOSTRIL TWICE A DAY, 178, cm, 01/07/21 17:59:00 EDT, Height, 81.4, kg, 12/03/20 13:52:00 EDT, Dry Weight Start Date: 01/17/21 Status: Ordered gabapentin 600 mg oral tablet 1 tablet, By Mouth, 4 times a day, # 120 tablet, 0 Refills, [facility], 174, cm, 02/27/21 15:17:00 EDT, Height, 81, kg, 02/27/21 14:06:00 EDT, Dry Weight Start Date: 05/12/21 Status: Ordered hydrOXYzine hydrochloride 25 mg oral tablet 1 TO 2 TABLETS, By Mouth, 3 times a day, PRN NEEDED FOR ANXIETY (VIAL), # 60 tablet, 0 Refills, [facility], 174, cm, 02/27/21 15:17:00 EDT, Height, 81, kg, 02/27/21 14:06:00 EDT, Dry Weight Start Date: 05/12/21 Status: Ordered Melatonin 3 mg oral tablet 1 tablet, By Mouth, Daily at bedtime, PRN NEEDED FOR INSOMNIA (PACKAGE IN TRAY), # 60 tablet, 0 Refills, [facility], 28, TAKE 1 TABLET BY [facility], [facility], 08/24/19 14:14:00 EDT,Height, [...] 5 Refills, Maintenance, 03/11/20 14:37:00 EDT, Tablet, [facility]/pharmacy #[id number], 175, cm, 08/24/19 14:14:00 EDT, Height, 81.2, kg, 02/04/19 1:40:00 EDT,... Start Date: 03/11/20 Status: Ordered Tab-A-Jesse oral tablet See Instructions, TAKE 1 TABLET BY MOUTH ONCE A DAY, # 30 tablet, 10 Refills, Maintenance, [facility], 28, TAKE 1 TABLET BY MOUTH ONCE A DAY, 175, cm, 04/02/20 0:35:00 EDT, Height, 100, kg, 04/02/20 0:35:00 EDT, Dry Weight Start Date: 07/18/20 Status: Ordered tranexamic acid 650 mg oral tablet 1 tablet = 650 mg, By Mouth, Daily, # 21 tablet, 0 Refills, Maintenance, 10/22/20 17:52:00 EDT, Tablet, [facility]/pharmacy #[id number], Partial fill upon patient request if the prescription is for a schedule II opioid drug., 178, cm, 10/22/20 13:17:00 EDT, Height... Start Date: 10/22/20 Status: Ordered traZODone 50 mg oral tablet See Instructions, TAKE 1 TO 2 TABLETS BY MOUTH AT BEDTIME (ONE DOSE IN VIAL), # 60 tablet, Refills 5, Instructions Replace Required Details, Route to Pharmacy Electronically, [facility], 174,cm, 02/11/21 12:09:00 EDT, Height, 86.6, kg, ... Start Date: 02/15/21 Status: Ordered Vitamin B1 100 mg oral tablet 1, tablet, By Mouth, Daily, # 90 tablet, Refills 2, Tot. Refills 0, Acute, 09/05/20 17:32:00 EDT, Route to Pharmacy Electronically, [facility], 178, cm, 08/31/20 11:25:00 EDT, Height, 84.9, kg, 08/31/20 1:07:00 EDT, Dry Weight Start Date: 09/05/20 Status: Ordered Xifaxan 550 mg oral tablet 1 tablet, By Mouth, 2 times a day, # 60 tablet, 0 Refills, Maintenance, 04/16/20 14:45:00 EST, [facility]/pharmacy #[id number], 175, cm, 04/02/20 0:35:00 [...]
--- OUTSIDE RECORDS SUMMARY | 2023-12-15 21:01 | XMS_ITS | Continuity of Care Document ---
Author Organization [facility] Address [address] [place] [address]- Care Team Providers Care Electrical Instrument Maker Name Role Phone Jany Baig DO Primary Care Physician [facility] [facility] Date(s): 09/29/21 - 10/29/21 [facility] [address] [place] [address]- Allergies, Adverse Reactions, Alerts Substance Reaction Severity [...] (oldterm) 08/02/12 Give n 1Result Comment: [04/29/2017] [id number] 2Admin Note: FLUARIX 3Admin Note: 3 RDINJ 4Admin Note: #2 Medications amLODIPine 5 mg oral tablet 5 mg, 1, tablet, By Mouth, Daily, # 30 tablet, Refills 5, Tot. Refills 5, Maintenance, 10/21/21 10:15:00 EDT, Route to Pharmacy Electronically, [email or web address], Partial fill upon patient request if the prescription is for a schedule II opioid drug.... Start Date: 10/21/21 Status: Ordered Co Q-10 100 mg oral capsule 1 capsule, By Mouth, 4 times a day, # 120 capsule, 6 Refills, [email or web address], 174, cm, 02/27/2115:17:00 EDT, Height, 81, kg, 02/27/21 14:06:00 EDT, Dry Weight Start Date: 07/08/21 Status: Ordered fluticasone 50 mcg/inh nasal spray See Instructions, USE 1 SPRAY INTO EACH NOSTRIL TWICE A DAY, # 16 Gm, 5 Refills, [email or web address], 30, USE 1 SPRAY INTO EACH NOSTRIL TWICE A DAY, 174, cm, 07/14/21 8:16:00 EST, Height, 81, kg, 02/27/21 14:06:00 EDT, Dry Weight Start Date: 08/04/21 Status: Ordered folic acid 1 mg oral tablet 1 mg, 1, tablet, By Mouth, Daily, # 90 tablet, Refills 4, Tot. Refills 4, Maintenance, 10/27/21 10:40:00 EDT, Route to Pharmacy Electronically, [email or web address], Partial fill upon patient request if the prescription is for a schedule II opioid drug.... Start Date: 10/27/21 Stop Date: 01/20/23 Status: Ordered gabapentin 300 mg oral capsule 300 mg, 1, capsule, By Mouth, Daily at bedtime, note dose change, # 90 capsule, Refills 4, Tot. Refills 4, Maintenance, 10/27/21 10:39:00 EDT, [facility], Partial fill upon patient request if [...] 10/21/21 10:15:00 EDT, Route to Pharmacy Electronically, [email or web address], Partial fill upon patient request if [...] Route to Pharmacy Electronically, [facility], Partial fill upon patient request if the prescription is... Start Date: 10/22/21 Stop Date: 01/15/23 Status: Ordered rifAXIMin 550 mg oral tablet 1 tablet = 550 mg, By Mouth, 2 times a day, please contact GI for refills, # 60 tablet, 0 Refills, Maintenance, 10/21/21 10:15:00 EDT, Tablet, [facility], Partial fill upon patient request [...] Route to Pharmacy Electronically, [facility], 175,cm, 10/27/21 10:11:00 EDT, Height, [...]
--- OUTSIDE RECORDS SUMMARY | 2023-12-15 21:02 | XMS_ITS | Continuity of Care Document ---
Author Organization [facility] Address [address] [place] [address]- Care Team Providers Care Biology Department Chair Name Role Phone Jany Baig DO Primary Care Physician Encounter [facility] Date(s): 03/20/22 - 04/24/22 [facility] [address] [place] [address]- Attending Physician: Anna MANAGEMENT INTERN, Christine Allergies, Adverse Reactions, Alerts Substance Reaction [...] n 1Result Comment: [facility]: [id number] 2Result Comment: [04/29/2017] [id number] 3Admin Note: FLUARIX 4Admin Note: 3 RDINJ 5Admin Note: #2 Medications acetaminophen 500 mg oral tablet 1 tablet, By Mouth, 4 times a day, PRN NEEDED FOR PAIN, MAX 4, PER DAY (VIAL., # 50 tablet, 11 Refills, Maintenance, 03/13/22 8:37:00 EDT, [facility], 175, cm, 01/06/22 10:34:00 EDT, Height, 78.3, kg, 12/26/21 19:05:00 EDT, Dry Weight Start Date: 03/13/22 Status: Ordered amLODIPine 5 mg oral tablet 5 mg, 1, tablet, By Mouth, Daily, # 30 tablet, Refills 5, Tot. Refills 5, Maintenance, 10/21/21 10:15:00 EDT, Route to Pharmacy Electronically, [facility], Partial fill upon patient request if the prescription is for a schedule II opioid drug.... Start Date: 10/21/21 Status: Ordered Co Q-10 100 mg oral capsule 1 capsule, By Mouth, 4 times a day, # 120 capsule, 5 Refills, Maintenance, 04/09/22 15:55:00 EDT, [facility], 175, cm, 04/09/22 15:34:00 EDT, Height, [...] Gm, 5 Refills, Maintenance, 02/18/22 10:02:00 EDT, [facility], 30, USE 1 SPRAY(S) INTO EACH NOSTRIL TWICE A DAY, 175, cm, 01/06/22 10:34:00 EDT, Height, 78.3, kg, 12/26/21 19... Start Date: 02/18/22 Status: Ordered folic acid 1 mg oral tablet 1 mg, 1, tablet, By Mouth, Daily, # 90 tablet, Refills 4, Tot. Refills 4, Maintenance, 10/27/21 10:40:00 EDT, Route to Pharmacy Electronically, [facility], Partial fill upon patient request if the prescription is for a schedule II opioid drug.... Start Date: 10/27/21 Stop Date: 01/20/23 Status: Ordered furosemide 20 mg oral tablet 1, tablet, By Mouth, Daily, note dose change, # 30 tablet, Refills 2, Tot. Refills 2, Maintenance, 04/09/22 15:53:00 EDT, Route to Pharmacy Electronically, [facility], 175, cm, 04/09/22 15:34:00 EDT, Height, 78.3, kg, 12/26/21 19:05:00 EDT, Start Date: 04/09/22 Stop Date: 07/08/22 Status: Ordered gabapentin 300 mg oral capsule 300 mg, 1, capsule, By Mouth, Daily at bedtime, note dose change, # 90 capsule, Refills 4, Tot. Refills 4, Maintenance, 04/09/22 15:53:00 EDT, Route to Pharmacy Electronically, [facility], Partial fill upon patient request if the prescription... Start Date: 04/09/22 Stop Date: 07/03/23 Status: Ordered hydrOXYzine hydrochloride 25 mg oral tablet 1 TO 2 TABLETS, By Mouth, 3 times a day, PRN NEEDED FOR ANXIETY (VIAL), # 60 tablet, 11 Refills,Maintenance, 03/13/22 8:38:00 EDT, [facility], 175, cm, 01/06/22 10:34:00 EDT, Height, 78.3, kg, 12/26/21 19:05:00 EDT, Dry Weight Start Date: 03/13/22 Status: Ordered lactulose 10 gm/15 ml oral syrup See Instructions, TAKE 30ML BY MOUTH THREE TIMES DAILY NEEDED TO ACHEIVE 3-4 BOWL MOVEMENTS PER DAY, # 3,000 mL, 10 [facility]ills, [facility], [facility], TAKE 30ML BY MOUTH THREE TIMES DAILY NEEDED TO ACHEIVE 3-4 BOWL MOVEMENTS PER DAY, 174, cm, 02/12... Start Date: 07/02/21 Status: Ordered lidocaine 0.5% topical gel 1 application, Topically, 3 times a day, # 120 Gm, 0 Refills, Acute 12/30/22 17:23:00 EDT, 12/30/2216:23:00 EDT, Gel, [facility], Partial fill upon patient request if the prescription is fora schedule II opioid drug., 1 application Topically... Start Date: 12/30/21 Stop Date: 12/30/22 Status: Ordered Lidoderm 5% film 1 patch, Topically, Daily, remove patches after 12 hours NSAIDS contraindicated High dose tylenol contraindicated, # 30 patch, 5 Refills, Maintenance, 12/26/21 9:33:00 EDT, [facility], Partial fill upon patient request if the prescription i... Start Date: 12/26/21 Status: Ordered magnesium oxide 400 mg oral tablet 1 tablet, By Mouth, 2 times a day, # 60 tablet, 11 Refills, Maintenance, 03/13/22 8:37:00 EDT, [facility], 175, cm, 01/06/22 10:34:00 EDT, Height, 78.3, kg, 12/26/21 19:05:00 EDT, Dry Weight Start Date: 03/13/22 Status: Ordered Melatonin 3 mg oral tablet 1 tablet, By Mouth, Daily at bedtime, PRN NEEDED FOR INSOMNIA (PACKAGE IN TRAY), # 60 tablet, 5 Refills, Maintenance, 06/02/21 16:17:00 EST, [facility], 28, 1 tablet By Mouth [...] 04/09/22 16:00:00 EDT, Route to Pharmacy Electronically, [facility], Partial fill upon patient requestif the prescription is for a schedule II opioid remedios... Start Date: 04/09/22 Stop Date: 10/06/22 Status: Ordered Potassium Chloride (Eqv-K-Tab) 20 mEq oral tablet, extended release 2 tablet, By Mouth, Daily, # 60 tablet, 1 Refills, Maintenance, 03/13/22 12:37:00 EDT, [id number], 175, cm, 01/06/22 10:34:00 EDT, Height, 78.3, kg, 12/26/21 19:05:00 EDT, Dry Weight Start Date: 03/13/22 Status: Ordered pyridoxine 50 mg oral tablet 50 mg, 1, tablet, By Mouth, Daily, for 90 days, # 90 tablet, Refills 4, Tot. Refills 4, Acute 01/15/23 11:42:00 EDT, 10/22/21 11:42:00 EDT, Route to Pharmacy Electronically, [facility], Partial fill upon patient request [...] 0 Refills, Maintenance, 03/12/22 17:21:00 EDT, Tablet, [id number], Partial fill upon patient request if the prescription is for a schedule II opioid drug., 175, cm,... Start Date: 03/12/22 Status: Ordered Tab-A-Jesse oral tablet 1 tablet, By Mouth, Daily, # 90 tablet, 9 Refills, [facility], 28, TAKE 1 TABLET BY [...] Electronically, [facility], 175,cm, 01/06/22 10:34:00 EDT, Height, 78.3, kg, 12/26/... Start Date: 01/30/22 Status: Ordered traZODone 50 mg oral tablet See Instructions, TAKE 2-3 TABLETS BY MOUTH AT BEDTIME (ONE DOSE IN VIAL), # 90 tablet, Refills 5, Tot. Refills 5, Maintenance, 12/26/21 9:21:00 EDT, Instructions Replace Required Details, Route to Pharmacy Electronically, [facility], 170, cm,... Start Date: 12/26/21 Status: Ordered Vitamin B1 100 mg oral tablet 1, tablet, By Mouth, Daily, # 90 tablet, Refills 3, Maintenance, 03/13/22 8:37:00 EDT, Route to Pharmacy Electronically, [facility], 175, cm, 01/06/22 10:34:00 EDT, Height, 78.3, kg, 12/26/2218:05:00 EDT, Dry Weight Start Date: 03/13/22 Status: Ordered Xifaxan 550 mg oral tablet 1 tablet, By Mouth, 2 times a day, # 60 tablet, 1 Refills, Maintenance, 04/10/22 16:49:00 EDT, [facility], 175, cm, 04/09/22 15:34:00 EDT, Height, [...] Team Personnel Name: Alexandra Colmenares RN Position: [facility] ED RN W/OE and Tasks Member Role: Primary Care Nurse Name: Garima Manzano RN Position: [facility] RN Member Role: Primary Care Nurse Name: Malgorzata Marinelli RN Position: [facility] RN Member Role: Primary Care Nurse Name: Jean Nugent RN Position: [facility] RN Member Role: Primary Care Nurse Name: Mary Suazo RN Position: [facility] RN Member Role: Primary Care Nurse Name: Yenny Bernstein Position: [facility] RN Member Role: Primary Care Nurse Name: Jany Baig DO Position: [facility] Primary Care Physician Member Role: PCP Address: Address: [address] [place] [address] [facility] [address] Name: Neida Ballard RN Position: [facility] RN Member Role: Primary Care Nurse Name: Kaye Payne RN Position: [facility] RN Member [...] Member Role: Lifetime Consulting Provider Address: Address: [address] [place] [address] Name: Ge Covarrubias RN Position: [facility] RN Member Role: Primary Care Nurse Name: Orin Elmore RN Position: [facility] ED RN W/OE and Tasks Member Role: Primary Care Nurse Name: Allegra Liu RN Position: [facility] PCO RN Member Role: Primary Care Nurse Name: Shayan Pandya MD Position: [facility] Renal MD Member Role: Lifetime Consulting Physician Address: Address: [address] [place] [address] [address] [facility], [address] Name: Darlene Rodrigez RN Position: [facility] RN Member Role: Primary Care Nurse Name: Kwan Mills RN Position: [facility] RN Member Role: Primary Care Nurse Name: Kim Rendon RN Position: S RN Member Role: Primary Care Nurse Name: Monica Rowell RN Position: S RN Member Role: Primary Care Nurse Name: Estela Ramos Position: S RN Member Role: Primary Care Nurse Care Team Related Persons Name: CAWUMARLEN Address: [place] [address] Name: MARLEN CABEZAS Address: [place] [address] Name: NICK CABEZAS Name: GEMA CABEZAS Address: [place] [address]
--- OUTSIDE RECORDS SUMMARY | 2023-12-15 21:02 | XMS_ITS | Continuity of Care Document ---
Author Organization [facility] Address [address] [place] [address]- Care Team Providers Care Day Care Assistant Name Role Phone Jany Baig DO Primary Care Physician Encounter [facility] Date(s): 04/14/23 - 05/14/23 [facility] [address] [place] [address]- Allergies, Adverse Reactions, Alerts Substance Reaction Severity [...] n 1Result Comment: [facility]: [id number] 2Result Comment: [04/29/2017] [id number] 3Admin Note: FLUARIX 4Admin Note: 3 RDINJ 5Admin Note: #2 Medications acamprosate 333 mg oral delayed release tablet 1 tablet = 333 mg, By Mouth, 3 times a day, # 42 tablet, 4 Refills, Maintenance, 11/05/22 11:31:00 EDT, EC Tablet, [facility], Partial fill upon patient request if the prescription is for a schedule II opioid drug., 175, cm, 11/05/22 10:21:00... Start Date: 11/05/22 Stop Date: 01/14/23 Status: Ordered amLODIPine 5 mg oral tablet 1 tablet, By Mouth, Daily, ^1R1., # 30 tablet, 5 Refills, Maintenance, 12/22/22 7:20:00 EDT, [facility], 175, cm, 12/03/22 11:50:00 EDT, Height, 88.9, kg, 10/21/22 20:41:00 EDT, Dry Weight Start Date: 12/22/22 Status: Ordered baclofen 10 mg oral tablet See Instructions, TAKE ONE TABLET BY MOUTH THREE TIMES A DAY ^1R1,1R2,1R4, # 90 tablet, Refills 5, Tot. Refills 5, Maintenance, 01/14/23 17:55:00 EDT, Instructions Replace Required Details, [facility], [facility], cm... Start Date: 01/14/23 Status: Ordered calcium (as carbonate)-vitamin D 500 mg-400 intl units oral tablet 1 tablet, By Mouth, Daily, ^1R1., # 28 tablet, 0 Refills, Maintenance, 12/01/22 16:12:00 EDT, [facility], 28, 1 tablet By Mouth Daily,Instr:^1R1., [...] capsule, 6 Refills, Maintenance, 12/03/22 12:13:00 EDT, [facility], 175, cm, 12/03/22 11:50:00 EDT, Height, [...] Gm, 12 Refills, Maintenance, 03/24/23 10:52:00 EDT, [facility], 28, APPLY TOPICALLY TO AFFECTED AREA(S) [...] 03/20/23 16:22:00 EDT, Route to Pharmacy Electronically, [facility], 175, cm, 03/20/23 15:31:00 EDT, Height, 77.5, kg, 03/20/23 11:30:00 EDT, Dry Weight Start Date: 03/20/23 Status: Ordered furosemide 20 mg oral tablet 20 mg, 1, tablet, By Mouth, Every other day, # 30 tablet, Refills 3, Tot. Refills 3, Maintenance, 01/28/23 12:31:00 EDT, Route to Pharmacy Electronically, [facility], Partial fill upon patient request if the prescription is for a schedule II o... Start Date: 01/28/23 Status: Ordered gabapentin 300 mg oral capsule 300 mg, 1, capsule, By Mouth, Daily at bedtime, note dose/frequency change, # 90 capsule, Refills 4, Tot. Refills 4, Maintenance, 11/05/22 11:05:00 EDT, Route to Pharmacy Electronically, [facility], 175, cm, 11/05/22 10:21:00 EDT, Height, 88.9... Start Date: 11/05/22 Stop Date: 01/29/24 Status: Ordered hydrOXYzine hydrochloride 10 mg oral tablet 2 tablet, By Mouth, 2 times a day, PRN NEEDED FOR ANXIETY (VIAL), # 30 tablet, 3 Refills, Maintenance, 04/16/23 16:41:00 EDT, [facility], 175, cm, 03/22/23 6:50:00 EDT, Height, 77.5, kg, 03/20/23 11:30:00 EDT, Dry Weight Start Date: 04/16/23 Status: Ordered lactulose 10 gm/15 ml oral syrup 15 mL, By Mouth, 2 times a day, # 120 mL, 6 Refills, Maintenance, 02/26/23 10:11:00 EDT, [facility], 4, TAKE 15ML BY MOUTH TWO TIMES A DAY, 175, cm, 12/03/22 11:50:00 EDT, Height, 84, kg, 02/12/23 11:30:00 EDT, Dry Weight Start Date: 02/26/23 Status: Ordered magnesium oxide 400 mg oral tablet See Instructions, TAKE 1 TABLET BY MOUTH TWICE A DAY^1R1,1R4, # 60 tablet, 11 Refills, Maintenance,01/28/23 12:31:00 EDT, [facility], 175, cm, 12/03/22 11:50:00 EDT, Height, 88.9, kg, 10/21/22 20:41:00 EDT, Dry Weight Start Date: 01/28/23 Status: Ordered Melatonin 3 mg oral tablet 1 tablet, By Mouth, Daily at bedtime, PRN NEEDED FOR INSOMNIA (PACKAGE IN TRAY)^1R4, # 60 tablet, 5 Refills, Maintenance, 04/16/23 16:41:00 EDT, [facility], 60, TAKE 1 TABLET BY MOUTH [...] 02/26/23 10:11:00 EDT, Route to Pharmacy Electronically, [facility], 175, cm, 12/03/22 11:50:00 EDT, Height, [...] 04/14/23 12:41:00 EDT, Route to Pharmacy Electronically, [facility], 175, cm, 03/22/23 6:50:00 EDT, Height, 77.5, kg, 03/20/23 11:30:00 EDT, Dry Weight Start Date: 04/14/23 Status: Ordered Tab-A-Jesse oral tablet 1 tablet, By Mouth, Daily, R1., # 30 tablet, 5 Refills, Maintenance, 05/06/23 19:16:00 EST, [facility], 30, TAKE 1 TABLET BY MOUTH ONCE A DAY^1R1, 175, cm, 03/22/23 6:50:00 EDT, Height, 77.5,kg, 03/20/23 11:30:00 EDT, Dry Weight Start Date: 05/06/23 Status: Ordered traZODone 50 mg oral tablet 2, tablet, By Mouth, Daily at bedtime, ^2R4., # 60 tablet, Refills 5, Maintenance, 02/26/23 10:11:00 EDT, Route to Pharmacy Electronically, [facility], 175, cm, 12/03/22 11:50:00 EDT, [...] 02/09/23 23:18:00 EDT, Route to Pharmacy Electronically, [facility], 175, cm, 12/03/22 11:50:00 EDT, Height, 88.9, kg, 10/21/22 20:41:00 EDT, Dry Weight Start Date: 02/09/23 Status: Ordered Vitamin B6 50 mg oral tablet 1, tablet, By Mouth, Daily, R1., # 90 tablet, Refills 4, Maintenance, 11/16/22 13:39:00 EDT, Route to Pharmacy Electronically, [facility], 175, cm, 11/13/22 10:42:00 EDT, Height, [...] tablet, 3 Refills, Maintenance, 02/26/23 10:11:00 EDT, [facility], 175, cm, 12/03/22 11:50:00 EDT, Height, [...] Roach RN Position: [facility] ED RN W/OE and Tasks Member Role: Primary Care Nurse Name: Mary Suazo RN Position: [facility] RN Member Role: Primary Care Nurse Name: Andres Pressley RN Position: [facility] ED RN W/OE and Tasks Member Role: Primary Care Nurse Name: Jany Baig DO Position: [facility] Physician - Primary Care Member Role: PCP Address: Address: [address] [place] [address] Adult [facility] [place] [address]- Name: Kaye Payne RN Position: [facility] RN Member Role: Primary Care Nurse Name: Garima Hutchinson Position: [facility] RN Member Role: Primary Care Nurse Name: Malgorzata Austin Position: [facility] RN Member Role: Primary Care Nurse Name: Ibeth Adams RN Position: [facility] RN [...] Care Nurse Name: Ashok Kevin RN Position: [facility] RN Member Role: Primary Care Nurse Name: Cody Garcia Position: [facility] Associate Professional Member Role: Lifetime Consulting Provider Address: Address: [address] [place] [address]- Name: Paige Nascimento RN Position: [facility] RN Member Role: Primary Care Nurse Name: Ge Covarrubias RN Position: [facility] RN Member Role: Primary Care Nurse Name: Orin Elmore RN Position: [facility] ED RN W/OE and Tasks Member Role: Primary Care Nurse Name: Allegra Liu RN Position: [facility] AMB Nurse Member Role: Primary Care Nurse Name: Shayan Pandya MD Position: [facility] Renal MD Member Role: Lifetime Consulting Physician Address: Address: [address] [place] [address] [address] [facility] [place] [address]- Name: Darlene Rodrigez RN Position: S RN [...] Care Nurse Name: Jimi Fitzpatrick RN Position: [facility] RN Member Role: Primary Care Nurse Care Team Related Persons Name: MARLEN CABEZAS Address: [address] [address] Name: MARLEN CABEZAS Address: home [address] [place] [id number] Name: NICK CABEZAS Name: GEMA CABEZAS Address: home [address] [place] [id number]
--- OUTSIDE RECORDS SUMMARY | 2023-12-15 21:02 | XMS_ITS | Continuity of Care Document ---
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 Phone Jany Baig DO Primary Care Physician Encounter [facility] Date(s): 11/03/22 - 12/03/22 [facility] [address] [place], [place] [address] Allergies, Adverse Reactions, Alerts Substance [...] 1Result Comment: [facility]: [id number] 2Result Comment: [04/29/2017] [id number] 3Admin Note: FLUARIX 4Admin Note: 3 RDINJ 5Admin Note: #2 Medications acamprosate 333 mg oral delayed release tablet 1 tablet = 333 mg, By Mouth, 3 times a day, # 42 tablet, 4 Refills, Maintenance, 11/05/22 11:31:00 EDT, EC Tablet, [facility], Partial fill upon patient request if the prescription is for a schedule II opioid drug., 175, cm, 11/05/22 10:21:00... Start Date: 11/05/22 Stop Date: 01/14/23 Status: Ordered amLODIPine 5 mg oral tablet 1 tablet, By Mouth, Daily, ^1R1., # 30 tablet, 2 Refills, Maintenance, 10/06/22 4:58:00 EDT, [facility], 176, cm, 09/07/22 8:56:00 EDT, Height, 82.1, kg, 09/07/22 8:59:00 EDT, Dry Weight Start Date: 10/06/22 Status: Ordered baclofen 10 mg oral tablet See Instructions, TAKE 1 TABLET BY MOUTH THREE TIMES DAILY, # 90 tablet, Refills 0, Tot. Refills 0,Maintenance, 12/01/22 16:12:00 EDT, Instructions Replace Required Details, [facility], 175, cm, 11/13/22 10:4... Start Date: 12/01/22 Status: Ordered calcium (as carbonate)-vitamin D 500 mg-400 intl units oral tablet 1 tablet, By Mouth, Daily, ^1R1., # 28 tablet, 0 Refills, Maintenance, 12/01/22 16:12:00 EDT, [facility], 28, 1 tablet By Mouth [...] capsule, 6 Refills, Maintenance, 12/03/22 12:13:00 EDT, [facility], 175, cm, 12/03/22 11:50:00 EDT, Height, [...] 10/06/22 4:59:00 EDT, Route to Pharmacy Electronically, [facility], 176, cm, 09/07/22 8:56:00 EDT, Height, [...] 09/03/22 14:50:00 EDT, Route to Pharmacy Electronically, [facility], 169, cm, 09/03/22 14:21:00 EDT, Height, 69, kg, 08/16/22 1:04:00 EST, Dry Weight Start Date: 09/03/22 Status: Ordered gabapentin 300 mg oral capsule 300 mg, 1, capsule, By Mouth, Daily at bedtime, note dose/frequency change, # 90 capsule, Refills 4, Tot. Refills 4, Maintenance, 11/05/22 11:05:00 EDT, [facility], 175, cm, 11/05/22 10:21:00 EDT, Height, 88.9... Start Date: 11/05/22 Stop Date: 01/29/24 Status: Ordered hydrOXYzine hydrochloride 10 mg oral tablet 2 tablet, By Mouth, 2 times a day, PRN NEEDED FOR ANXIETY (VIAL), # 30 tablet, 3 Refills, Maintenance, 09/24/22 17:01:00 EDT, [facility], 176, cm, 09/07/22 8:56:00 EDT, Height, 82.1, kg, 09/07/22 8:59:00 EDT, Dry Weight Start Date: 09/24/22 Status: Ordered lactulose 10 gm/15 ml oral syrup 15 mL, By Mouth, 2 times a day, # 120 mL, 6 Refills, Maintenance, 09/22/22 12:15:00 EDT, [facility], 4, TAKE 15ML BY MOUTH TWO TIMES A DAY, 176, cm, 09/07/22 8:56:00 EDT, Height, 82.1, kg, 09/07/22 8:59:00 EDT, Dry Weight Start Date: 09/22/22 Status: Ordered Lidoderm 5% film 1 patch, Topically, Daily, remove patches after 12 hours NSAIDS contraindicated High dose tylenol contraindicated remove patches after 12 hours Nueropathy, # 30 patch, 5 Refills, Maintenance, 11/05/22 11:04:00 EDT, [facility], Partial klaudia... Start Date: 11/05/22 Status: Ordered Melatonin 3 mg oral tablet 1 tablet, By Mouth, Daily at bedtime, PRN NEEDED FOR INSOMNIA (PACKAGE IN TRAY)^1R4, # 60 tablet, 5 Refills, Maintenance, 06/12/22 18:11:00 EST, [facility], 60, TAKE 1 TABLET BY [...] 09/03/22 14:53:00 EDT, Route to Pharmacy Electronically, [facility], Partial fill upon patient request if [...] 11/05/22 11:31:00 EDT, Route to Pharmacy Electronically, [facility], Partial fill upon patient request if [...] 09/03/22 17:13:00 EDT, Route to Pharmacy Electronically, [facility], 169, cm, 09/03/22 14:21:00 EDT, Height, [...] 03/13/22 8:37:00 EDT, Route to Pharmacy Electronically, [facility], 175, cm, 01/06/22 10:34:00 EDT, Height, 78.3, kg, 12/26/2218:05:00 EDT, Dry Weight Start Date: 03/13/22 Status: Ordered Vitamin B6 50 mg oral tablet 1, tablet, By Mouth, Daily, R1., # 90 tablet, Refills 4, Maintenance, 11/16/22 13:39:00 EDT, Route to Pharmacy Electronically, [facility], 175, cm, 11/13/22 10:42:00 EDT, Height, 88.9, kg, 10/21/22 20:41:00 EDT, Dry Weight Start Date: 11/16/22 Status: Ordered Voltaren 1% topical gel 1 application, Topically, 4 times a day, PRN for pain, # 100 Gm, 0 Refills, Maintenance, 12/01/22 16:12:00 EDT, Gel, [facility], Partial fill upon patient request if [...] tablet, 3 Refills, Maintenance, 10/01/22 15:19:00 EDT, [facility], 176, cm, 09/07/22 8:56:00 EDT, Height, [...] Care Member Role: PCP Address: Address: [address] [place] [address] Adult [place] [address]- Name: Neida Ballard RN Position: [facility] [...] Consulting Provider Address: Address: [address] [place] [address]- Name: Ge Covarrubias RN Position: [facility] [...] Member Role: Lifetime Consulting Physician Address: Address: [address] [place] [address] [address] [facility] [place] [address]- Name: Darlene Rodrigez RN Position: [facility] RN Member Role: Primary Care Nurse Name: Kwan Mills RN Position: [facility] [...] Team Related Persons Name: MARLEN CABEZAS Address: [place] [address] Name: MARLEN CABEZAS Address: [place] [address] Name: NICK CABEZAS Name: GEMA CABEZAS Address: [place] [address]
--- OUTSIDE RECORDS SUMMARY | 2023-12-15 21:02 | XMS_ITS | Continuity of Care Document ---
Author Organization [facility] ter Address [address] [place] [address]- Care Team Providers Care [place] Name Role Phone Jany Baig DO Primary Care Physician Encounter [facility] Date(s): 03/12/23 - 08/27/23 [facility] [address] [place] [id number] Attending Physician: Cristofer Steiner MD Admitting Physician: Cristofer Steiner MD Allergies, Adverse Reactions, [...] [facility]: [id number] 2Result Comment: [04/29/2017] [id number] 3Admin Note: FLUARIX 4Admin Note: 3 RDINJ 5Admin Note: #2 Medications acamprosate 333 mg oral delayed release tablet 2 tablet = 666 mg, By Mouth, 3 times a day, # 180 tablet, 1 Refills, Maintenance, 07/28/23 11:04:00EST, EC Tablet, [facility], Partial fill upon patient request if [...] tablet, 2 Refills, Maintenance, 07/28/23 11:06:00 EST, [facility], 175, cm, 07/28/23 9:11:00 EST, Height, [...] 07/28/23 11:10:00 EST, Route to Pharmacy Electronically, [facility], Partial fill upon patient request if [...] Gm, 12 Refills, Maintenance, 07/28/23 11:06:00 EST, [facility], 28, APPLY TOPICALLY TO AFFECTED AREA(S) [...] Gm, 1 Refills, Maintenance, 07/28/23 12:07:00 EST, [facility], 30, USE 1 SPRAY(S) INTO EACH [...] 07/28/23 12:09:00 EST, Route to Pharmacy Electronically, [facility], 175, cm, 07/28/23 9:11:00 EST, Height, [...] tablet, 3 Refills, Maintenance, 07/28/23 12:10:00 EST, [facility], 175, cm, 07/28/23 9:11:00 EST, Height, 61.3, kg,07/12/23 23:27:00 EST, Dry Weight Start Date: 07/28/23 Status: Ordered lactulose 10 gm/15 ml oral syrup 30 mL = 20 Gm, By Mouth, 3 times a day, for 30 days, # 2,700 mL, 2 Refills, Acute 10/26/23 12:13:00EDT, 07/28/23 12:13:00 EST, Syrup, [facility], Partial fill upon patient request if [...] 60 tablet, 11 Refills, Maintenance,07/28/23 12:09:00 EST, [facility], 175, cm, 07/28/23 9:11:00 EST, Height, [...] tablet, 5 Refills, Maintenance, 07/28/23 12:09:00 EST, [facility], 60, 1 tablet By Mouth Daily [...] 07/28/23 12:11:00 EST, Route to Pharmacy Electronically, [facility], 175, cm, 07/28/23 9:11:00EST, Height, 61.3, [...] 07/28/23 12:12:00 EST, Route to Pharmacy Electronically, [facility], 175, cm, 07/28/23 9:11:00 EST, Height, [...] 02/26/23 10:11:00 EDT, Route to Pharmacy Electronically, [facility], 175, cm, 12/03/22 11:50:00 EDT, Height,84, kg, 02/12/23 11:30:00 EDT, Dry Weight Start Date: 02/26/23 Status: Ordered traZODone 50 mg oral tablet 2, tablet, By Mouth, Daily at bedtime, ^2R4., # 60 tablet, Refills 5, Tot. Refills 5, Maintenance, 07/28/23 12:12:00 EST, Route to Pharmacy Electronically, [facility], 175, cm, 07/28/23 9:11:00 EST, Height, [...] 07/28/23 12:12:00 EST, Route to Pharmacy Electronically, [facility], 175, cm, 07/28/23 9:11:00 EST, Height, [...] 07/28/23 12:11:00 EST, Route to Pharmacy Electronically, [facility], 175, cm, 07/28/23 9:11:00 EST, Height, [...] each, 1 Refills, Maintenance, 07/28/23 14:33:00 EST, [facility], 175, cm, 07/28/23 9:11:00 EST, Height, [...] RN Member Role: Primary Care Nurse Name: Mayra LOUIE, Lisa Bowen Position: [facility] RN Member Role: Primary Care Nurse Name: Alexandra Colmenares RN Position: [facility] ED RN W/OE and Tasks Member Role: Primary Care Nurse Name: Garima Manzano RN Position: [facility] RN Member Role: Primary Care Nurse Name: Malgorzata Marinelli RN Position: [facility] RN Member Role: Primary Care Nurse Name: Joyce Roach RN Position: [facility] ED RN W/OE and Tasks Member Role: Primary Care Nurse Name: Mary Suazo RN Position: [facility] RN Member Role: Primary Care Nurse Name: Lucina Peralta RN Position: [facility] RN Member Role: Primary Care Nurse Name: Maria Esther Craig LPN Position: [facility] RN Member Role: Primary Care Nurse Name: Andres Pressley RN Position: [facility] ED RN W/OE and Tasks Member Role: Primary Care Nurse Name: Jany Baig DO Position: [facility] Physician - Primary Care Member Role: PCP Address: Address: [address] [place] [address] Adult [facility] [place] [address]- Name: Kaye Payne RN Position: [facility] RN Member Role: Primary Care Nurse Name: Garima Curry RN Position: [facility] RN Member Role: Primary Care Nurse Name: Malgorzata Austin Position: [facility] RN Member Role: Primary Care Nurse Name: Ibeth Adams RN Position: [facility] RN [...] Care Nurse Name: Ashok Kevin RN Position: [facility] RN Member Role: Primary Care Nurse Name: Cody Garcia Position: [facility] Associate Professional Member Role: Lifetime Consulting Provider Address: Address: [address] [place] [address]- Name: Paige Nascimento RN Position: [facility] RN Member Role: Primary Care Nurse Name: Ge Covarrubias RN Position: [facility] RN Member Role: Primary Care Nurse Name: Orin Elmore RN Position: [facility] ED RN W/OE and Tasks Member Role: Primary Care Nurse Name: Allegra Liu RN Position: [facility] AMB Nurse Member Role: Primary Care Nurse Name: Shayan Pandya MD Position: [facility] Renal MD Member Role: Lifetime Consulting Physician Address: Address: [address] [facility], [place] [address]- Name: Kimberley Pittman RN Position: [facility] RN Member Role: Primary Care Nurse Name: Darlene Rodrigez RN Position: [facility] RN Member Role: Primary Care Nurse Name: Dixie Duke RN Position: [facility] RN Member Role: Primary Care Nurse Name: Kwan Mills RN Position: [facility] ED RN W/OE and Tasks Member Role: Primary Care Nurse Name: Ingrid Verdugo RN Position: [facility] RN Member Role: Primary Care Nurse Name: Monica Rowell RN Position: [facility] RN Member Role: Primary Care Nurse Name: Jimi Fitzpatrick RN Position: [facility] RN Member Role: Primary Care Nurse Care Team Related Persons Name: MARLEN CABEZAS Address: home [address] [place] [address] Name: MARLEN CABEZAS Address: [address] [place] [address] Name: NICK CABEZAS Name: GEMA CABEZAS Address: home [address] [place] [address] Name: ELTON CHENG Address: home [address] [place] [id number]
--- OUTSIDE RECORDS SUMMARY | 2023-12-15 21:02 | XMS_ITS | Continuity of Care Document ---
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 Phone Jany Baig DO Primary Care Physician ( [phone] Encounter [facility] Date(s): 04/20/22 - 05/20/22 [facility] [address] [place] [address]- [place] Allergies, Adverse Reactions, Alerts Substance Reaction [...] n 1Result Comment: [facility]: [id number] 2Result Comment: [04/29/2017] [id number] 3Admin Note: FLUARIX 4Admin Note: 3 RDINJ 5Admin Note: #2 Medications acetaminophen 500 mg oral tablet 1 tablet, By Mouth, 4 times a day, PRN NEEDED FOR PAIN, MAX 4, PER DAY (VIAL., # 50 tablet, 11 Refills, Maintenance, 03/13/22 8:37:00 EDT, [facility], 175, cm, 01/06/22 10:34:00 EDT, Height, 78.3, kg, 12/26/21 19:05:00 EDT, Dry Weight Start Date: 03/13/22 Status: Ordered amLODIPine 5 mg oral tablet See Instructions, TAKE 1 TABLET BY MOUTH ONCE A DAY^1R1, # 30 tablet, 5 Refills, Maintenance, 05/13/22 16:24:00 EST[facility], [facility], cm, 04/09/22 15:34:00 EDT, Height, 78.3, kg, 12/26/21 19:05:00 EDT, Dry Weight Start Date: 05/13/22 Status: Ordered Co Q-10 100 mg oral capsule 1 capsule, By Mouth, 4 times a day, # 120 capsule, 5 Refills, Maintenance, 04/09/22 15:55:00 EDT, [facility], 175, cm, 04/09/22 15:34:00 EDT, Height, [...] Gm, 5 Refills, Maintenance, 02/18/22 10:02:00 EDT, [facility], 30, USE 1 SPRAY(S) INTO EACH NOSTRIL TWICE A DAY, 175, cm, 01/06/22 10:34:00 EDT, Height, 78.3, kg, 12/26/21 19... Start Date: 02/18/22 Status: Ordered folic acid 1 mg oral tablet 1 mg, 1, tablet, By Mouth, Daily, # 90 tablet, Refills 4, Tot. Refills 4, Maintenance, 10/27/21 10:40:00 EDT, Route to Pharmacy Electronically, [facility], Partial fill upon patient request if the prescription is for a schedule II opioid drug.... Start Date: 10/27/21 Stop Date: 01/20/23 Status: Ordered furosemide 20 mg oral tablet 1, tablet, By Mouth, Daily, note dose change, # 30 tablet, Refills 2, Tot. Refills 2, Maintenance, 04/09/22 15:53:00 EDT, Route to Pharmacy Electronically, [facility], 175, cm, 04/09/22 15:34:00 EDT, Height, 78.3, kg, 12/26/21 19:05:00 EDT, Start Date: 04/09/22 Stop Date: 07/08/22 Status: Ordered gabapentin 300 mg oral capsule 300 mg, 1, capsule, By Mouth, Daily at bedtime, note dose change, # 90 capsule, Refills 4, Tot. Refills 4, Maintenance, 04/09/22 15:53:00 EDT, Route to Pharmacy Electronically, [facility], Partial fill upon patient request if the prescription... Start Date: 04/09/22 Stop Date: 07/03/23 Status: Ordered hydrOXYzine hydrochloride 25 mg oral tablet 1 TO 2 TABLETS, By Mouth, 3 times a day, PRN NEEDED FOR ANXIETY (VIAL), # 60 tablet, 11 Refills,Maintenance, 03/13/22 8:38:00 EDT, [facility], 175, cm, 01/06/22 10:34:00 EDT, Height, 78.3, kg, 12/26/21 19:05:00 EDT, Dry Weight Start Date: 03/13/22 Status: Ordered lactulose 10 gm/15 ml oral syrup See Instructions, TAKE 30ML BY MOUTH THREE TIMES DAILY NEEDED TO ACHEIVE 3-4 BOWL MOVEMENTS PER DAY, # 3,000 mL, 10 Refills, [facility], 30, TAKE 30ML BY MOUTH THREE TIMES DAILY NEEDED TO ACHEIVE 3-4 BOWL MOVEMENTS PER DAY, 174, cm, 02/12... Start Date: 07/02/21 Status: Ordered lidocaine 0.5% topical gel 1 application, Topically, 3 times a day, # 120 Gm, 0 Refills, Acute 12/30/22 17:23:00 EDT, 12/30/2216:23:00 EDT, Gel, [facility], Partial fill upon patient request if the prescription is fora schedule II opioid drug., 1 application Topically... Start Date: 12/30/21 Stop Date: 12/30/22 Status: Ordered Lidoderm 5% film 1 patch, Topically, Daily, remove patches after 12 hours NSAIDS contraindicated High dose tylenol contraindicated, # 30 patch, 5 Refills, Maintenance, 12/26/21 9:33:00 EDT, [facility], Partial fill upon patient request if the prescription i... Start Date: 12/26/21 Status: Ordered magnesium oxide 400 mg oral tablet 1 tablet, By Mouth, 2 times a day, # 60 tablet, 11 Refills, Maintenance, 03/13/22 8:37:00 EDT, [facility], 175, cm, 01/06/22 10:34:00 EDT, Height, 78.3, kg, 12/26/21 19:05:00 EDT, Dry Weight Start Date: 03/13/22 Status: Ordered Melatonin 3 mg oral tablet 1 tablet, By Mouth, Daily at bedtime, PRN NEEDED FOR INSOMNIA (PACKAGE IN TRAY), # 60 tablet, 5 Refills, Maintenance, 06/02/21 16:17:00 EST, [facility], 28, 1 tablet By Mouth [...] 04/09/22 16:00:00 EDT, Route to Pharmacy Electronically, [facility], Partial fill upon patient requestif the prescription is for a schedule II opioid remedios... Start Date: 04/09/22 Stop Date: 10/06/22 Status: Ordered Potassium Chloride (Eqv-K-Tab) 20 mEq oral tablet, extended release 2 tablet, By Mouth, Daily, # 180 tablet, 1 Refills, Maintenance, 05/13/22 9:48:00 EST, [facility], 175, cm, 04/09/22 15:34:00 EDT, Height, 78.3, kg, 12/26/21 19:05:00 EDT, Dry Weight Start Date: 05/13/22 Stop Date: 11/09/22 Status: Ordered pyridoxine 50 mg oral tablet 50 mg, 1, tablet, By Mouth, Daily, for 90 days, # 90 tablet, Refills 4, Tot. Refills 4, Acute 01/15/23 11:42:00 EDT, 10/22/21 11:42:00 EDT, Route to Pharmacy Electronically, [facility], Partial fill upon patient request [...] 0 Refills, Maintenance, 03/12/22 17:21:00 EDT, Tablet, [facility]/pharmacy #[id number], Partial fill upon patient request if the prescription is for a schedule II opioid drug., 175, cm,... Start Date: 03/12/22 Status: Ordered Tab-A-Jesse oral tablet 1 tablet, By Mouth, Daily, # 90 tablet, 9 Refills, [facility], 28, TAKE 1 TABLET BY MOUTH ONCE A DAY, 174, cm, 07/14/21 8:16:00 EST, Height, 81, kg, 02/27/21 14:06:00 EDT, Dry Weight Start Date: 07/22/21 Status: Ordered traZODone 50 mg oral tablet See Instructions, TAKE 1 TO 2 TABLETS BY MOUTH AT BEDTIME (ONE DOSE IN VIAL), # 60 tablet, Refills 0, Instructions Replace Required Details, Route to Pharmacy Electronically, [facility], 175,cm, 01/06/22 10:34:00 EDT, Height, 78.3, kg, ... Start Date: 01/30/22 Status: Ordered traZODone 50 mg oral tablet See Instructions, TAKE 2-3 TABLETS BY MOUTH AT BEDTIME (ONE DOSE IN VIAL), # 90 tablet, Refills 5, Tot. Refills 5, Maintenance, 12/26/21 9:21:00 EDT, Instructions Replace Required Details, Route to Pharmacy Electronically, [facility], 170, cm,... Start Date: 12/26/21 Status: Ordered Vitamin B1 100 mg oral tablet 1, tablet, By Mouth, Daily, # 90 tablet, Refills 3, Maintenance, 03/13/22 8:37:00 EDT, Route to Pharmacy Electronically, [facility], 175, cm, 01/06/22 10:34:00 EDT, Height, 78.3, kg, 12/26/2218:05:00 EDT, Dry Weight Start Date: 03/13/22 Status: Ordered Xifaxan 550 mg oral tablet 1 tablet, By Mouth, 2 times a day, # 60 tablet, 1 Refills, Maintenance, 04/10/22 16:49:00 EDT, [facility], 175, cm, 04/09/22 15:34:00 EDT, Height, [...] more)/day in last 30 days entered on: 8/24/19 Sex Patient Care team information Care Team [...] Primary Care Nurse Name: Yenny Bernstein Position: [facility] RN Member Role: Primary Care Nurse Name: Jany Baig DO Position: [facility] Primary Care Physician Member Role: PCP Address: Address: [address] [place] [address] Adult & [place] [address]- Name: Neida Ballard RN [facility] Member Role: Lifetime Consulting Provider Address: Address: [address] [place] [address] Name: Ge Covarrubias RN [facility] Member Role: Lifetime Consulting Physician Address: Address: [address] [place] [address] [address] [facility], [address] Name: Darlene Rodrigez RN Position: [facility] RN Member Role: Primary Care Nurse Name: Kwan Mills RN Position: [facility] RN Member Role: Primary Care Nurse Name: Kim Rendon RN Position: [facility] RN Member Role: Primary Care Nurse Name: Monica Rowell RN Position: [facility] RN Member Role: Primary Care Nurse Care Team Related Persons Name: MARLEN CABEZAS Address: [address] [address] Name: MARLEN CABEZAS Address: [address] [address] Name: NICK CABEZAS Name: GEMA CABEZAS Address: [place] [address]
--- OUTSIDE RECORDS SUMMARY | 2023-12-15 21:02 | XMS_ITS | Continuity of Care Document ---
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 Refills 0, Maintenance, 01/20/21 15:04:00 EDT, Route to Pharmacy Electronically, [facility], 178, cm, 01/07/21 17:59:00 EDT, [...] DAILY, # 120 capsule, 7 Refills, Maintenance, [facility], 178, cm, 10/22/20 13:17:00 EDT, Height, 84.9, kg, 08/31/20 1:07:00 EDT, Dry Weight Start Date: 11/01/20 Status: Ordered Co Q-10 100 mg oral capsule 1 capsule, By Mouth, 4 times a day, # 120 capsule, 11 Refills, Maintenance, 11/21/19 10:36:00 EDT, [facility]/pharmacy #[id number], 175, cm, [...] tablet, 0 Refills, Maintenance, 01/20/21 15:04:00 EDT, [facility], 178, cm, 01/07/21 17:59:00 EDT, Height, 81.4, kg, 12/03/20 13:52:00 EDT, Dry Weight Start Date: 01/20/21 Status: Ordered hydrOXYzine hydrochloride 25 mg oral tablet 1 TO 2 TABLETS, By Mouth, 3 times a day, PRN NEEDED FOR ANXIETY (VIAL), # 60 tablet, 3 Refills, Maintenance, 10/07/20 16:49:00 EDT, [facility], 178, cm, 08/31/20 11:25:00 EDT, Height, 84.9, kg, 08/31/20 1:07:00 EDT, Dry Weight Start Date: 10/07/20 Status: Ordered Keppra 500 mg oral tablet 1 tablet = 500 mg, By Mouth, 2 times a day, # 14 tablet, 0 Refills, Maintenance, 11/01/20 11:59:00 EDT, Tablet, [facility] 3, Partial fill upon patient request if the prescription is for a schedule II opioid drug., 178, cm, 10/22/20 13:17:... Start Date: 11/01/20 Stop Date: 11/08/20 Status: Ordered melatonin 3 mg oral tablet 1 tablet = 3 mg, By Mouth, Daily at bedtime, PRN for insomnia, # 60 tablet, 4 Refills, Maintenance,07/18/20 17:30:00 EST, Tablet, [facility], 175, cm, 04/02/20 0:35:00 EDT, [facility], [facility], cm, 08/24/19 14:14:00 EDT,Height, [...] 5 Refills, Maintenance, 03/11/20 14:37:00 EDT, Tablet, [facility]/pharmacy #[id number], 175, cm, 08/24/19 14:14:00 EDT, Height, 81.2, kg, 02/04/19 1:40:00 EDT,... Start Date: 03/11/20 Status: Ordered Tab-A-Jesse oral tablet See Instructions, TAKE 1 TABLET BY MOUTH ONCE A DAY, # 30 tablet, 10 Refills, Maintenance, [facility], 28, TAKE 1 [...] 0 Refills, Maintenance, 10/22/20 17:52:00 EDT, Tablet, [facility]/pharmacy #[id number], Partial fill [...] to Pharmacy Electronically, [facility], 178, cm, 10/22/20... Start Date: 11/01/20 Status: Ordered Vitamin B1 100 mg oral tablet 1, tablet, By Mouth, Daily, # 90 tablet, Refills 2, Tot. Refills 0, Acute, 09/05/20 17:32:00 EDT, Route to Pharmacy Electronically, [facility], 178, cm, 08/31/20 11:25:00 EDT, Height, 84.9, kg, 08/31/20 1:07:00 EDT, Dry Weight Start Date: 09/05/20 Status: Ordered Xifaxan 550 mg oral tablet 1 tablet, By Mouth, 2 times a day, # 60 tablet, 0 Refills, Maintenance, 04/16/20 14:45:00 EST, [facility]/pharmacy #[id number], 175, cm, [...]
--- OUTSIDE RECORDS SUMMARY | 2023-12-15 21:02 | XMS_ITS | Continuity of Care Document ---
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 Refills 0, Maintenance, 10/07/20 16:49:00 EDT, Route to Pharmacy Electronically, [facility], 178, cm, 08/31/20 11:25:00 EDT, Height, 84.9, kg, 08/31/20 1:07:00 EDT, Dry Weight Start Date: 10/07/20 Status: Ordered chantix 1mg tablet 1 tablet, By Mouth, 2 times a day, for 12 week(s), # 56 tablet, 0 Refills, Acute, 09/05/20 17:32:00EDT, [facility], 178, cm, 08/31/20 11:25:00 EDT, Height, 84.9, kg, 08/31/20 1:07:00 EDT, Dry Weight Start Date: 09/05/20 Stop Date: 11/28/20 Status: Ordered Co Q-10 100 mg oral capsule 1 capsule, By Mouth, 4 times a day, # 120 capsule, 11 Refills, Maintenance, 11/21/19 10:36:00 EDT, [facility]/pharmacy #[id number], 175, cm, 08/24/19 14:14:00 EDT, Height, 81.2, kg, 02/04/19 1:40:00 EDT, Dry Weight Start Date: 11/21/19 Stop Date: 11/15/20 Status: Ordered Engerix-B 20 mcg/mL intramuscular suspension = 20 mcg, Intramuscular, Every 30 days, rpt at 1 and 6 months, # 1 mL, 2 Refills, Maintenance, 11/02/19 9:02:00 EDT, Suspension, [facility]/pharmacy #[id number], 175, cm, 08/24/19 14:14:00 EDT, Height, 81.2, kg, 02/04/19 1:40:00 EDT, Dry Weight Start Date: 11/02/19 Status: Ordered fluticasone 50 mcg/inh nasal spray See Instructions, SPRAY 1 SPRAY INTO EACH NOSTRIL TWICE A DAY, # 16 Gm, 5 Refills, 07/09/20 11:38:00 EST, [facility], 30, SPRAY 1 SPRAY INTO EACH NOSTRIL TWICE A DAY, 175, cm, 04/02/20 0:35:00 EDT, Height, 100, kg, 04/02/20 0:35:00 EDT, Dry We... Start Date: 07/09/20 Status: Ordered gabapentin 600 mg oral tablet 1 tablet, By Mouth, 4 times a day, # 120 tablet, 0 Refills, Maintenance, 10/07/20 16:49:00 EDT, [facility], 178, cm, 08/31/20 11:25:00 EDT, Height, 84.9, kg, 08/31/20 1:07:00 EDT, Dry Weight Start Date: 10/07/20 Status: Ordered hydrOXYzine hydrochloride 25 mg oral tablet 1 TO 2 TABLETS, By Mouth, 3 times a day, PRN NEEDED FOR ANXIETY (VIAL), # 60 tablet, 3 Refills, Maintenance, 10/07/20 16:49:00 EDT, [facility], 178, cm, 08/31/20 11:25:00 EDT, Height, 84.9, kg, 08/31/20 1:07:00 EDT, Dry Weight Start Date: 10/07/20 Status: Ordered lactulose 10 gm/15 ml oral syrup 30 mL = 20 Gm, By Mouth, 3 times a day, PRN Other, for 30 days, PRN to acheive 3-4 BMs per day fillin prefilled syringes, # 3,000 mL, 11 Refills, Acute 11/25/20 16:37:00 EDT, 12/01/19 16:37:00 EDT, Syrup, [email or web address], re sent from 10/04/17, 30... Start Date: 12/01/19 Stop Date: 11/25/20 Status: Ordered melatonin 3 mg oral tablet 1 tablet = 3 mg, By Mouth, Daily at bedtime, PRN for insomnia, # 60 tablet, 4 Refills, Maintenance,07/18/20 17:30:00 EST, Tablet, [facility], 175, cm, 04/02/20 0:35:00 EDT, Height, 100, kg, 04/02/20 0:35:00 EDT, Dry Weight Start Date: 07/18/20 Status: Ordered mupirocin 2% topical ointment See Instructions, APPLY TOPICALLY THREE TIMES DAILY (APPLY A THIN FILM), # 22 Gm, 0 Refills, Maintenance, 04/16/20 14:45:00 EST, [facility]/pharmacy #[id number], 8, APPLY TOPICALLY THREE TIMES DAILY [...] Refills, Maintenance, 10/06/19 15:57:00 EDT, Tablet, [email or web address], 175, cm, 08/24/19 14:14:00 EDT,Height, 81.2, kg, 02/04/19 1:40:00 EDT, Dry Weight Start Date: 10/06/19 Status: Ordered sertraline 50 mg oral tablet 1 tablet, By Mouth, Daily, TAKE ALONG WITH A 100MG TABLET to equal 150mg daily, # 90 tablet, 1 Refills, Maintenance, 10/06/19 15:57:00 EDT, [email or web address], 175, cm, 08/24/19 14:14:00 EDT, Height,81.2, kg, 02/04/19 1:40:00 EDT, Dry Weight Start Date: 10/06/19 Status: Ordered sildenafil 50 mg oral tablet 1 tablet = 50 mg, By Mouth, Daily, PRN erectile dysfunction, 1 hour before sexual activity, # 6 tablet, 5 Refills, Maintenance, 03/11/20 14:37:00 EDT, Tablet, [facility]/pharmacy #[id number], 175, cm, 08/24/19 14:14:00 EDT, Height, 81.2, kg, 02/04/19 1:40:00 EDT,... Start Date: 03/11/20 Status: Ordered Tab-A-Jesse oral tablet See Instructions, TAKE 1 TABLET BY MOUTH ONCE A DAY, # 30 tablet, 10 Refills, Maintenance, [facility], 28, TAKE 1 TABLET [...] 0 Refills, Maintenance, 10/22/20 17:52:00 EDT, Tablet, [facility]/pharmacy #[id number], [...] to Pharmacy Electronically, [facility], 178, cm, 08/31/20 11:25:00 EDT, Height, 84.... Start Date: 09/05/20 Status: Ordered Vitamin B1 100 mg oral tablet 1, tablet, By Mouth, Daily, # 90 tablet, Refills 2, Tot. Refills 0, Acute, 09/05/20 17:32:00 EDT, Route to Pharmacy Electronically, [facility], 178, cm, 08/31/20 11:25:00 EDT, Height, 84.9, kg, 08/31/20 1:07:00 EDT, Dry Weight Start Date: 09/05/20 Status: Ordered Xifaxan 550 mg oral tablet 1 tablet, By Mouth, 2 times a day, # 60 tablet, 0 Refills, Maintenance, 04/16/20 14:45:00 EST, [facility]/pharmacy #[id number], 175, cm, 04/02/20 0:35:00 [...]
--- OUTSIDE RECORDS SUMMARY | 2023-12-15 21:02 | XMS_ITS | Continuity of Care Document ---
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 Role Phone Jany Baig DO Primary Care Physician Encounter [facility] Date(s): 07/08/21 - 08/07/21 [facility] [address] [place] [address]- Allergies, Adverse Reactions, Alerts Substance Reaction Severity [...] (oldterm) 08/02/12 Give n 1Result Comment: [04/29/2017] [id number] 2Admin Note: FLUARIX 3Admin Note: 3 RDINJ 4Admin Note: #2 Medications baclofen 10 mg oral tablet 1, tablet, By Mouth, 3 times a day, # 90 tablet, Refills 0, Route to Pharmacy Electronically, [facility], 174, cm, 02/27/21 15:17:00 EDT, Height, 81, kg, 02/27/21 14:06:00 EDT, Dry Weight Start Date: 07/08/21 Status: Ordered chantix 1mg tablet 1 tablet, By Mouth, 2 times a day, # 56 tablet, 0 Refills, Acute, 11/22/20 16:13:00 EDT, [facility], 178, cm, 11/12/20 15:32:00 EDT, Height, 84.9, kg, 08/31/20 1:07:00 EDT, Dry Weight Start Date: 11/22/20 Status: Ordered Co Q-10 100 mg oral capsule 1 capsule, By Mouth, 4 times a day, # 120 capsule, 6 Refills, [facility], 174, cm, 02/27/2115:17:00 EDT, Height, 81, kg, 02/27/21 14:06:00 EDT, Dry Weight Start Date: 07/08/21 Status: Ordered fluticasone 50 mcg/inh nasal spray See Instructions, USE 1 SPRAY INTO EACH NOSTRIL TWICE A DAY, # 16 Gm, 5 Refills, [facility], 30, USE 1 SPRAY INTO EACH NOSTRIL TWICE A DAY, 174, cm, 07/14/21 8:16:00 EST, Height, 81, kg, 02/27/21 14:06:00 EDT, Dry Weight Start Date: 08/04/21 Status: Ordered gabapentin 600 mg oral tablet 1 tablet, By Mouth, 4 times a day, # 120 tablet, 0 Refills, [facility], 174, cm, 02/27/21 15:17:00 EDT, Height, 81, kg, 02/27/21 14:06:00 EDT, Dry Weight Start Date: 07/08/21 Status: Ordered hydrOXYzine hydrochloride 25 mg oral tablet 1 TO 2 TABLETS, By Mouth, 3 times a day, PRN NEEDED FOR ANXIETY (VIAL), # 60 tablet, 0 Refills, [facility], 174, cm, 02/27/21 15:17:00 EDT, Height, 81, kg, 02/27/21 14:06:00 EDT, Dry Weight Start Date: 07/08/21 Status: Ordered lactulose 10 gm/15 ml oral syrup See Instructions, TAKE 30ML BY MOUTH THREE TIMES DAILY NEEDED TO ACHEIVE 3-4 BOWL MOVEMENTS PER DAY, # 3,000 mL, 10 Refills, [facility], 30, TAKE 30ML BY MOUTH THREE TIMES DAILY NEEDED TO ACHEIVE 3-4 BOWL MOVEMENTS PER DAY, 174, cm, 02/12... Start Date: 07/02/21 Status: Ordered Melatonin 3 mg oral tablet 1 tablet, By Mouth, Daily at bedtime, PRN NEEDED FOR INSOMNIA (PACKAGE IN TRAY), # 60 tablet, 5 Refills, Maintenance, 06/02/21 16:17:00 EST, [facility], 28, 1 tablet By Mouth [...] 1 Refills, Maintenance, 10/06/19 15:57:00 EDT, Tablet, [facility], 175, cm, 08/24/19 14:14:00 EDT,Height, 81.2, kg, 02/04/19 1:40:00 EDT, Dry Weight Start Date: 10/06/19 Status: Ordered sertraline 50 mg oral tablet 1 tablet, By Mouth, Daily, TAKE ALONG WITH A 100MG TABLET to equal 150mg daily, # 90 tablet, 1 Refills, Maintenance, 10/06/19 15:57:00 EDT, [facility], 175, cm, 08/24/19 14:14:00 EDT, Height,81.2, kg, 02/04/19 1:40:00 EDT, Dry Weight Start Date: 10/06/19 Status: Ordered sildenafil 50 mg oral tablet 1 tablet = 50 mg, By Mouth, Daily, PRN erectile dysfunction, 1 hour before sexual activity, # 6 tablet, 5 Refills, Maintenance, 03/11/20 14:37:00 EDT, Tablet, [facility]/pharmacy #[id number], 175, cm, 08/24/19 14:14:00 EDT, Height, 81.2, kg, 02/04/19 1:40:00 EDT,... Start Date: 03/11/20 Status: Ordered Tab-A-Jesse oral tablet 1 tablet, By Mouth, Daily, # 90 tablet, 9 Refills, [facility], 28, TAKE 1 TABLET BY MOUTH ONCE A DAY, 174, cm, 07/14/21 8:16:00 EST, Height, 81, kg, 02/27/21 14:06:00 EDT, Dry Weight Start Date: 07/22/21 Status: Ordered tranexamic acid 650 mg oral tablet 1 tablet = 650 mg, By Mouth, Daily, # 21 tablet, 0 Refills, Maintenance, 10/22/20 17:52:00 EDT, Tablet, [facility]/pharmacy #[id number], Partial fill upon patient request if the prescription is for a schedule II opioid drug., 178, cm, 10/22/20 13:17:00 EDT, Height... Start Date: 10/22/20 Status: Ordered traZODone 50 mg oral tablet See Instructions, TAKE 1 TO 2 TABLETS BY MOUTH AT BEDTIME (ONE DOSE IN VIAL), # 60 tablet, Refills 0, Instructions Replace Required Details, Route to Pharmacy Electronically, [facility], 174,cm, 02/27/21 15:17:00 EDT, Height, 81, kg, 02/27/21... Start Date: 07/10/21 Status: Ordered traZODone 50 mg oral tablet See Instructions, TAKE 1 TO 2 TABLETS BY MOUTH AT BEDTIME (ONE DOSE IN VIAL), # 60 tablet, Refills 5, Instructions Replace Required Details, Route to Pharmacy Electronically, [facility], 174,cm, 02/11/21 12:09:00 EDT, Height, 86.6, kg, 02/06/... Start Date: 02/15/21 Status: Ordered Vitamin B1 100 mg oral tablet 1, tablet, By Mouth, Daily, # 90 tablet, Refills 1, Route to Pharmacy Electronically, [facility], 174, cm, 02/27/21 15:17:00 EDT, Height, 81, kg, 02/27/21 14:06:00 EDT, Dry Weight Start Date: 06/16/21 Status: Ordered Xifaxan 550 mg oral tablet 1 tablet, By Mouth, 2 times a day, # 60 tablet, 0 Refills, Maintenance, 04/16/20 14:45:00 EST, [facility]/pharmacy #[id number], 175, cm, 04/02/20 0:35:00 EDT, [...]
--- OUTSIDE RECORDS SUMMARY | 2023-12-15 21:02 | XMS_ITS | Continuity of Care Document ---
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 Refills 0, Maintenance, 11/22/20 16:13:00 EDT, Route to Pharmacy Electronically, [facility], 178, cm, 11/12/20 15:32:00 EDT, Height, 84.9, kg, 08/31/20 1:07:00 EDT, Dry Weight Start Date: 11/22/20 Status: Ordered chantix 1mg tablet 1 tablet, By Mouth, 2 times a day, # 56 tablet, 0 Refills, Acute, 11/22/20 16:13:00 EDT, [facility], 178, cm, 11/12/20 15:32:00 EDT, Height, 84.9, kg, 08/31/20 1:07:00 EDT, Dry Weight Start Date: 11/22/20 Status: Ordered Co Q-10 100 mg oral capsule See Instructions, TAKE 1 CAPSULE BY MOUTH FOUR TIMES DAILY, # 120 capsule, 7 Refills, Maintenance, [facility], 178, cm, 10/22/20 13:17:00 EDT, Height, 84.9, kg, 08/31/20 1:07:00 EDT, Dry Weight Start Date: 11/01/20 Status: Ordered Co Q-10 100 mg oral capsule 1 capsule, By Mouth, 4 times a day, # 120 capsule, 11 Refills, Maintenance, 11/21/19 10:36:00 EDT, [facility]/pharmacy #[id number], 175, cm, 08/24/19 14:14:00 EDT, Height, 81.2, kg, 02/04/19 1:40:00 EDT, Dry Weight Start Date: 11/21/19 Stop Date: 11/15/20 Status: Ordered fluticasone 50 mcg/inh nasal spray See Instructions, SPRAY 1 SPRAY INTO EACH NOSTRIL TWICE A DAY, # 16 Gm, 5 Refills, 07/09/20 11:38:00 EST, [facility], 30, SPRAY 1 SPRAY INTO EACH NOSTRIL TWICE A DAY, 175, cm, 04/02/20 0:35:00 EDT, Height, 100, kg, 04/02/20 0:35:00 EDT, Dry We... Start Date: 07/09/20 Status: Ordered gabapentin 600 mg oral tablet 1 tablet, By Mouth, 4 times a day, # 120 tablet, 0 Refills, Maintenance, 11/22/20 16:13:00 EDT, [facility], 178, cm, 11/12/20 15:32:00 EDT, Height, 84.9, kg, 08/31/20 1:07:00 EDT, Dry Weight Start Date: 11/22/20 Status: Ordered hydrOXYzine hydrochloride 25 mg oral tablet 1 TO 2 TABLETS, By Mouth, 3 times a day, PRN NEEDED FOR ANXIETY (VIAL), # 60 tablet, 3 Refills, Maintenance, 10/07/20 16:49:00 EDT, [facility], 178, cm, 08/31/20 11:25:00 EDT, Height, 84.9, kg, 08/31/20 1:07:00 EDT, Dry Weight Start Date: 10/07/20 Status: Ordered Keppra 500 mg oral tablet 1 tablet = 500 mg, By Mouth, 2 times a day, # 14 tablet, 0 Refills, Maintenance, 11/01/20 11:59:00 EDT, Tablet, [facility], Partial fill upon patient request if the prescription is for a schedule II opioid drug., 178, cm, 10/22/20 13:17:... Start Date: 11/01/20 Stop Date: 11/08/20 Status: Ordered melatonin 3 mg oral tablet 1 tablet = 3 mg, By Mouth, Daily at bedtime, PRN for insomnia, # 60 tablet, 4 Refills, Maintenance,07/18/20 17:30:00 EST, Tablet, [facility], 175, cm, 04/02/20 0:35:00 EDT, [...] 1 Refills, Maintenance, 10/06/19 15:57:00 EDT, Tablet, [facility], 175, cm, 08/24/19 14:14:00 EDT,Height, 81.2, kg, 02/04/19 1:40:00 EDT, Dry Weight Start Date: 10/06/19 Status: Ordered sertraline 50 mg oral tablet 1 tablet, By Mouth, Daily, TAKE ALONG WITH A 100MG TABLET to equal 150mg daily, # 90 tablet, 1 Refills, Maintenance, 10/06/19 15:57:00 EDT, [facility], 175, cm, 08/24/19 14:14:00 EDT, Height,81.2, kg, 02/04/19 1:40:00 EDT, Dry Weight Start Date: 10/06/19 Status: Ordered sildenafil 50 mg oral tablet 1 tablet = 50 mg, By Mouth, Daily, PRN erectile dysfunction, 1 hour before sexual activity, # 6 tablet, 5 Refills, Maintenance, 03/11/20 14:37:00 EDT, Tablet, [facility]/pharmacy #[id number], 175, cm, 08/24/19 14:14:00 EDT, Height, 81.2, kg, 02/04/19 1:40:00 EDT,... Start Date: 03/11/20 Status: Ordered Tab-A-Jesse oral tablet See Instructions, TAKE 1 TABLET BY MOUTH ONCE A DAY, # 30 tablet, 10 Refills, Maintenance, [facility], 28, TAKE 1 TABLET BY [...] 0 Refills, Maintenance, 10/22/20 17:52:00 EDT, Tablet, [facility]/pharmacy #[id number], Partial fill [...] Replace Required Details, Route to Pharmacy Electronically, [facility], 178, cm, 10/22/20... Start Date: 11/01/20 Status: Ordered Vitamin B1 100 mg oral tablet 1, tablet, By Mouth, Daily, # 90 tablet, Refills 2, Tot. Refills 0, Acute, 09/05/20 17:32:00 EDT, Route to Pharmacy Electronically, [facility], 178, cm, 08/31/20 11:25:00 EDT, Height, 84.9, kg, 08/31/20 1:07:00 EDT, Dry Weight Start Date: 09/05/20 Status: Ordered Xifaxan 550 mg oral tablet 1 tablet, By Mouth, 2 times a day, # 60 tablet, 0 Refills, Maintenance, 04/16/20 14:45:00 EST, [facility]/pharmacy #[id number], 175, cm, 04/02/20 0:35:00 [...]
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
--- OUTSIDE RECORDS SUMMARY | 2023-12-15 21:02 | XMS_ITS | Continuity of Care Document ---
Author Organization [facility] Address [address] [place] [address]- Care Team Providers Care Energy Administrator Name Role Phone Jany Baig DO Primary Care Physician ( [phone] [place] [facility] [place] 11[place]/23 [facility] [address] [place], [place] [address] Allergies, Adverse Reactions, Alerts Substance [...] n 1Result Comment: [facility]: [id number] 2Result Comment: [04/29/2017] [id number] 3Admin Note: FLUARIX 4Admin Note: 3 RDINJ 5Admin Note: #2 Medications acamprosate 333 mg oral delayed release tablet 2 tablet = 666 mg, By Mouth, 3 times a day, # 180 tablet, 1 Refills, Maintenance, 07/28/23 11:04:00EST, EC Tablet, [facility], Partial fill upon patient request if [...] tablet, 2 Refills, Maintenance, 06/02/23 8:00:00 EST, [facility], 175, cm, 03/22/23 6:50:00 EDT, Height, 77.5, kg, 03/20/23 11:30:00 EDT, Dry Weight Start Date: 06/02/23 Status: Ordered BACLOFEN TAB 10MG BACLOFEN TAB 10MG, 0 Refills, Maintenance, 11/08/23 0:40:00 EDT Start Date: 11/08/23 Status: Ordered baclofen 10 mg oral tablet 10 mg, 1, tablet, By Mouth, 3 times a day, # 90 tablet, Refills 2, Tot. Refills 2, Maintenance, 07/28/23 11:10:00 EST, Route to Pharmacy Electronically, [facility], Partial fill upon patient request if the prescription is for a schedule II o... Start Date: 07/28/23 Status: Ordered calcium (as carbonate)-vitamin D 500 mg-400 intl units oral tablet 1 tablet, By Mouth, Daily, 0 Refills, Maintenance, 11/06/23 18:36:00 EDT, Partial fill upon patientrequest if the prescription is for a schedule II opioid drug. Start Date: 11/06/23 Status: Ordered CALCIUM/D TAB 500-400 CALCIUM/D TAB 500-400, 0 Refills, Maintenance, 11/08/23 0:39:00 EDT Start Date: 11/08/23 Status: Ordered Coenzyme Q10 100 mg oral capsule 2 capsule = 200 mg, By Mouth, Daily at bedtime, # 60 capsule, 0 Refills, Maintenance, 11/05/23 12:43:00 EDT, Capsule, Partial fill upon patient request if the prescription is for a schedule II opioiddrug. Start Date: 11/05/23 Status: Ordered diclofenac 1% topical gel 0 Refills, Maintenance, 11/08/23 0:40:00 EDT, Partial fill upon patient request if the prescriptionis for a schedule II opioid drug. Start Date: 11/08/23 Status: Ordered Docusate = 100 mg, By [...] opioid drug. Start Date: 11/05/23 Status: Ordered FLOWFLEX KIT TEST FLOWFLEX KIT TEST, 0 Refills, Maintenance, 11/08/23 0:41:00 EDT Start Date: 11/08/23 Status: Ordered fluticasone 50 mcg/inh nasal spray [...] 07/28/23 12:09:00 EST, Route to Pharmacy Electronically, [facility], 175, cm, 07/28/23 9:11:00 EST, Height, [...] opioid drug. Start Date: 11/06/23 Status: Ordered Nicotine 2 mg gum 0 Refills, Maintenance, 11/08/23 0:40:00 EDT, Partial fill upon patient request if the prescriptionis for a schedule II opioid drug. Start Date: 11/08/23 Status: Ordered pantoprazole 40 mg oral delayed [...] opioid drug. Start Date: 07/30/23 Status: Ordered Santyl 250 u/gm ointment 0 Refills, Maintenance, 11/08/23 0:39:00 EDT, Partial fill upon patient request if the prescriptionis for a schedule II opioid drug. Start Date: 11/08/23 Status: Ordered Senna = 8.6 mg, By [...] 07/28/23 12:12:00 EST, Route to Pharmacy Electronically, [facility], 175, cm, 07/28/23 9:11:00 EST, Height, 61.3, kg, 07/12/23 23:27:00 EST, Dry Weight Start Date: 07/28/23 Status: Ordered Tab-A-Jesse oral tablet 1 tablet, By Mouth, Daily, R1., # 30 tablet, 5 Refills, Maintenance, 05/06/23 19:16:00 EST, [facility], 30, TAKE 1 TABLET BY [...] opioid drug. Start Date: 11/06/23 Status: Ordered Vitamin B1 100 mg oral tablet 1, tablet, By Mouth, Daily, # 90 tablet, Refills 3, Tot. Refills 3, Maintenance, 07/28/23 12:12:00 EST, Route to Pharmacy Electronically, [facility], 175, cm, 07/28/23 9:11:00 EST, Height, 61.3, kg, 07/12/23 23:27:00 EST, Dry Weight Start Date: 07/28/23 Status: Ordered Vitamin B6 50 mg oral tablet 1, tablet, By Mouth, Daily, R1., # 90 tablet, Refills 4, Tot. Refills 4, Maintenance, 07/28/23 12:11:00 EST, Route to Pharmacy Electronically, [facility], 175, cm, 07/28/23 9:11:00 EST, Height, 61.3, kg, 07/12/23 23:27:00 EST, Dry Weight Start Date: 07/28/23 Status: Ordered Xifaxan 550 mg oral tablet See Instructions, 1 tablet By Mouth 2 times a day, # 60 each, 5 Refills, Maintenance, 09/30/23 19:11:00 EDT, [facility], 175, cm, 09/24/23 11:09:00 EDT, Height, [...] RN Position: [facility] RN Member Role: Primary Care Nurse Name: Alexandra Colmenares RN Position: [facility] ED RN W/OE and Tasks Member Role: Primary Care Nurse Name: Garima Manzano RN Position: [facility] RN Member Role: Primary Care Nurse Name: Malgorzata Marinelli RN Position: [facility] RN Member Role: Primary Care Nurse Name: Joyce Roach RN Position: [facility] ED RN W/OE and Tasks Member Role: Primary Care Nurse Name: Lucina Peralta RN Position: [facility] RN Member Role: Primary Care Nurse Name: Jean Epstein RN Position: [facility] RN Member Role: Primary Care Nurse Name: Maria Esther Craig LPN Position: [facility] RN Member Role: Primary Care Nurse Name: Kaye Comer RN Position: [facility] RN Member Role: Primary Care Nurse Name: Kenyatta Kirby RN Position: [facility] RN Member Role: Primary Care Nurse Name: Andres Pressley RN Position: [facility] RN Member Role: Primary Care Nurse Name: Jany Baig DO Position: [facility] Physician - Primary Care Member Role: PCP Address: Address: [address] [place] [address] [facility] [place] [address]- Name: Mary Haines RN Position: [facility] RN Member Role: Primary Care Nurse Name: Garima Curry RN Position: [facility] RN Member Role: Primary Care Nurse Name: Malgorzata Austin Position: [facility] RN Member Role: Primary Care Nurse Name: Ibeth Adams RN Position: [facility] RN Member Role: Primary Care Nurse Name: Torrie Hernandez RN Position: [facility] OB RN Member Role: Primary Care Nurse Name: Gretchen Knutson RN Position: [facility] SN RN Member Role: Primary Care Nurse Name: Aislinn Mckee RN Position: [facility] RN Member Role: Primary Care Nurse Name: Ashley Mcelroy Position: [facility] RN Member Role: Primary Care Nurse Name: Ashok Kevin RN Position: [facility] RN Member Role: Primary Care Nurse Name: Eben Villavicencio RN Position: [facility] RN Member Role: Primary Care Nurse Name: Cody Garcia Position: [facility] Associate Professional Member Role: Lifetime Consulting Provider Address: Address: [address] [place] [address] Name: Paige Nascimento RN Position: [facility] RN Member Role: Primary Care Nurse Name: Sue Combs RN Position: [facility] RN Member Role: Primary Care Nurse Name: Ge Covarrubias RN Position: [facility] RN Member Role: Primary Care Nurse Name: Orin Elmore RN Position: [facility] ED RN W/OE and Tasks Member Role: Primary Care Nurse Name: Allegra Liu RN Position: [facility] AMB Nurse Member Role: Primary Care Nurse Name: Shayan Pandya MD Position: [facility] Renal MD Member Role: Lifetime Consulting Physician Address: Address: [address] [place] [address] [address] [facility], [place] [address]- Name: Kimberley Pittman RN Position: [facility] RN Member Role: Primary Care Nurse Name: Darlene Rodrigez RN Position: [facility] RN Member Role: Primary Care Nurse Name: Alison Helton Position: [facility] RN Member Role: Primary Care Nurse Name: Dixie Duke RN Position: [facility] RN Member Role: Primary Care Nurse Name: Kwan Mills RN Position: [facility] ED RN W/OE and Tasks Member Role: Primary Care Nurse Name: Ingrid Verdugo RN Position: [facility] RN Member Role: Primary Care Nurse Name: Monica Rowell RN Position: [facility] RN Member Role: Primary Care Nurse Name: Jimi Fitzpatrick RN Position: [facility] RN Member Role: Primary Care Nurse Care Team Related Persons Name: CAWUMARLEN Address: home [address] [place], [place] Name: MARLEN CABEZAS Address: home [address] [place], [place] Name: NICK CABEZAS Name: GEMA CABEZAS Address: [address] Name: ELTON CHENG Address: home [address] [place] [id number] Name: LAURO QUEVEDO
--- OUTSIDE RECORDS SUMMARY | 2023-12-15 21:02 | XMS_ITS | Continuity of Care Document ---
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 Refills 0, Maintenance, 01/20/21 15:04:00 EDT, Route to Pharmacy Electronically, [facility], 178, cm, 01/07/21 17:59:00 EDT, Height, 81.4, kg, 12/03/20 13:52:00 EDT, Dry Weight Start Date: 01/20/21 Status: Ordered chantix 1mg tablet 1 tablet, By Mouth, 2 times a day, # 56 tablet, 0 Refills, Acute, 11/22/20 16:13:00 EDT, [facility], 178, cm, 11/12/20 15:32:00 EDT, Height, 84.9, kg, 08/31/20 1:07:00 EDT, Dry Weight Start Date: 11/22/20 Status: Ordered Co Q-10 100 mg oral capsule See Instructions, TAKE 1 CAPSULE BY MOUTH FOUR TIMES DAILY, # 120 capsule, 7 Refills, Maintenance, [facility], 178, cm, 10/22/20 13:17:00 EDT, Height, 84.9, kg, 08/31/20 1:07:00 EDT, Dry Weight Start Date: 11/01/20 Status: Ordered Co Q-10 100 mg oral capsule 1 capsule, By Mouth, 4 times a day, # 120 capsule, 11 Refills, Maintenance, 11/21/19 10:36:00 EDT, [id number], 175, cm, 08/24/19 14:14:00 EDT, Height, 81.2, kg, 02/04/19 1:40:00 EDT, Dry Weight Start Date: 11/21/19 Stop Date: 11/15/20 Status: Ordered fluticasone 50 mcg/inh nasal spray See Instructions, USE 1 SPRAY INTO EACH NOSTRIL TWICE A DAY, # 16 Gm, 5 Refills, Maintenance, [facility], 30, USE 1 SPRAY INTO EACH NOSTRIL TWICE A DAY, 178, cm, 01/07/21 17:59:00 EDT, Height, 81.4, kg, 12/03/20 13:52:00 EDT, Dry Weight Start Date: 01/17/21 Status: Ordered gabapentin 600 mg oral tablet 1 tablet, By Mouth, 4 times a day, # 120 tablet, 0 Refills, Maintenance, 01/20/21 15:04:00 EDT, [facility], 178, cm, 01/07/21 17:59:00 EDT, Height, 81.4, kg, 12/03/20 13:52:00 EDT, Dry Weight Start Date: 01/20/21 Status: Ordered hydrOXYzine hydrochloride 25 mg oral tablet 1 TO 2 TABLETS, By Mouth, 3 times a day, PRN NEEDED FOR ANXIETY (VIAL), # 60 tablet, 3 Refills, Maintenance, 10/07/20 16:49:00 EDT, [facility], 178, cm, 08/31/20 11:25:00 EDT, Height, 84.9, kg, 08/31/20 1:07:00 EDT, Dry Weight Start Date: 10/07/20 Status: Ordered Keppra 500 mg oral tablet 1 tablet = 500 mg, By Mouth, 2 times a day, # 14 tablet, 0 Refills, Maintenance, 11/01/20 11:59:00 EDT, Tablet, [facility], Partial fill upon patient request if the prescription is for a schedule II opioid drug., 178, cm, 10/22/20 13:17:... Start Date: 11/01/20 Stop Date: 11/08/20 Status: Ordered melatonin 3 mg oral tablet 1 tablet = 3 mg, By Mouth, Daily at bedtime, PRN for insomnia, # 60 tablet, 4 Refills, Maintenance,07/18/20 17:30:00 EST, Tablet, [facility], 175, cm, 04/02/20 0:35:00 [...] Maintenance, 10/06/19 15:57:00 EDT, Tablet, [facility], [...] Refills, Maintenance, 03/11/20 14:37:00 EDT, Tablet, [facility] #[id number], 175, cm, 08/24/19 14:14:00 EDT, Height, 81.2, kg, 02/04/19 1:40:00 EDT,... Start Date: 03/11/20 Status: Ordered Tab-A-Jesse oral tablet See Instructions, TAKE 1 TABLET BY MOUTH ONCE A DAY, # 30 tablet, 10 Refills, Maintenance, [facility], [...] Refills, Maintenance, 10/22/20 17:52:00 EDT, Tablet, [facility] #[id number], Partial fill upon patient request [...] EDT, Route to Pharmacy Electronically, [facility], 178, cm, 08/31/20 11:25:00 EDT, Height, 84.9, kg, 08/31/20 1:07:00 EDT, Dry Weight Start Date: 09/05/20 Status: Ordered Xifaxan 550 mg oral tablet 1 tablet, By Mouth, 2 times a day, # 60 tablet, 0 Refills, Maintenance, 04/16/20 14:45:00 EST, [facility] #[id number], 175, cm, 04/02/20 0:35:00 EDT, [...] oldest [Reference Range]: 1 Height 174 cm (02/11/21 12:09 PM) Weight 86.6 kg (02/11/21 12:09 PM) Body Mass Index [18.5-24.99] 28.6 *H* (02/11/21 12:09 PM) Social History Social History Type Response Smoking Status 10 or more cigarette s (1/2 pack or more)/day in last 30 days entered on: 02/04/19 Sex
--- OUTSIDE RECORDS SUMMARY | 2023-12-15 21:02 | XMS_ITS | Continuity of Care Document ---
Author Organization [facility] Address [address] [place] [address]- Care Team Providers Care Technical Fellow Name Role Phone Jany Baig DO Primary Care Physician Encounter [facility] Date(s): 12/04/19 - 02/07/20 [facility] [address] [place] [address]- [facility] Attending Physician: Jany Baig DO [...] n 1Admin Note: #2 2Result Comment: [04/29/2017] [id number] 3Admin Note: FLUARIX 4Admin Note: 3 RDINJ Medications baclofen 10 mg oral tablet 10 mg, 1, tablet, By Mouth, 3 times a day, # 90 tablet, Refills 4, Tot. Refills 4, Maintenance, 10/06/19 16:18:00 EDT, Route to Pharmacy Electronically, [facility], 175, cm, 08/24/19 14:14:00EDT, Height, 81.2, kg, 02/04/19 1:40:00 EDT, Dry We... Start Date: 10/06/19 Stop Date: 03/04/20 Status: Ordered chantix 1mg tablet 1 tablet = 1 mg, By Mouth, 2 times a day, with a full glass of water, continue for total of 12 wks,# 56 tablet, 1 Refills, Maintenance, 10/06/19 15:54:00 EDT, Tablet, [facility], 175, cm, 08/24/19 14:14:00 EDT, Height, 81.2, kg, 02/04/19 1:40... Start Date: 10/06/19 Status: Ordered chantix 1mg tablet See Instructions, TAKE 1 TABLET BY MOUTH TWICE A DAY WITH A FULL GLASS OF WATER AND CONTINUE FOR A TOTAL OF 12 WEEKS, # 56 tablet, 0 Refills, Maintenance, 01/26/20 14:44:00 EDT, [facility], 175, cm, 08/24/19 14:14:00 EDT, Height, 81.2, kg, 08/... Start Date: 01/26/20 Status: Ordered Co Q-10 100 mg oral capsule 1 capsule, By Mouth, 4 times a day, # 120 capsule, 11 Refills, Maintenance, 11/21/19 10:36:00 EDT, [id number], 175, cm, 08/24/19 14:14:00 EDT, Height, 81.2, kg, 02/04/19 1:40:00 EDT, Dry Weight Start Date: 11/21/19 Stop Date: 11/15/20 Status: Ordered Engerix-B 20 mcg/mL intramuscular suspension = 20 mcg, Intramuscular, Every 30 days, rpt at 1 and 6 months, # 1 mL, 2 Refills, Maintenance, 11/02/19 9:02:00 EDT, Suspension, [id number], 175, cm, 08/24/19 14:14:00 EDT, Height, 81.2, kg, 02/04/19 1:40:00 EDT, Dry Weight Start Date: 11/02/19 Status: Ordered fluticasone 50 mcg/inh nasal spray See Instructions, SPRAY 1 SPRAY INTO EACH NOSTRIL TWICE A DAY, # 16 Gm, 5 Refills, 01/26/20 9:52:00EDT, [facility], 30, SPRAY 1 SPRAY INTO EACH NOSTRIL TWICE A DAY, 175, cm, 08/24/19 14:14:00 EDT, Height, 81.2, kg, 02/04/19 1:40:00 EDT, Dry W... Start Date: 01/26/20 Status: Ordered gabapentin 600 mg oral tablet 1 tablet = 600 mg, By Mouth, 4 times a day, to replace prior script, # 120 tablet, 3 Refills, Maintenance, 01/26/20 14:28:00 EDT, Tablet, [facility], 175, cm, 08/24/19 14:14:00 EDT, Height, 81.2, kg, 02/04/19 1:40:00 EDT, Dry Weight Start Date: 01/26/20 Stop Date: 05/25/20 Status: Ordered hydrOXYzine hydrochloride 25 mg oral tablet 1 TO 2 TABLETS, By Mouth, 3 times a day, PRN NEEDED FOR ANXIETY, # 60 tablet, 2 Refills, Maintenance, 12/01/19 13:15:00 EDT, [facility], 175, cm, 08/24/19 14:14:00 [...] 11/25/20 16:37:00 EDT, 12/01/19 16:37:00 EDT, Syrup, [facility], re sent from 10/04/17, [...] tablet, 4 Refills, Maintenance,10/06/19 16:16:00 EDT, Tablet, [facility], 175, cm, 08/24/19 14:14:00 EDT, Height, 81.2, kg, 02/04/19 1:40:00 EDT, Dry Weight Start Date: 10/06/19 Status: Ordered mupirocin 2% topical ointment See Instructions, APPLY TOPICALLY THREE TIMES DAILY (APPLY A THIN FILM), # 22 Gm, 0 Refills, Acute,[facility], 8, APPLY TOPICALLY THREE TIMES DAILY (APPLY A THIN FILM), 175, cm, 08/24/19 14:14:00 EDT, Height, 81.2, kg, 02/04/19 1:40:00 EDT, D... Start Date: 10/30/19 Status: Ordered mupirocin 2% topical ointment See Instructions, APPLY TOPICALLY THREE TIMES DAILY (APPLY A THIN FILM), # 22 Gm, 0 Refills, Maintenance, 01/26/20 14:28:00 EDT, [facility], 8, APPLY TOPICALLY THREE [...] 1 Refills, Maintenance, 10/06/19 15:57:00 EDT, Tablet, [facility], [facility], cm, 08/24/19 14:14:00 EDT,Height, 81.2, kg, 02/04/19 1:40:00 EDT, Dry Weight Start Date: 10/06/19 Status: Ordered sertraline 50 mg oral tablet 1 tablet, By Mouth, Daily, TAKE ALONG WITH A 100MG TABLET to equal 150mg daily, # 90 tablet, 1 Refills, Maintenance, 10/06/19 15:57:00 EDT, [facility], 175, cm, 08/24/19 14:14:00 EDT, Height,81.2, kg, 02/04/19 1:40:00 EDT, Dry Weight Start Date: 10/06/19 Status: Ordered Tab-A-Jesse oral tablet 1 tablet, By Mouth, Daily, # 30 tablet, 11 Refills, Maintenance, 06/16/19 12:42:00 EST, [facility], 30, TAKE 1 TABLET BY MOUTH [...] Electronically, [facility], 175, cm, 08/24/19 14:14:0... Start Date: 09/14/19 Status: Ordered Vitamin B1 100 mg oral tablet 1, tablet, By Mouth, Daily, # 90 tablet, Refills 3, Tot. Refills 3, Maintenance, 09/27/19 8:51:00 EDT, Route to Pharmacy Electronically, [facility], 175, cm, 08/24/19 14:14:00 EDT, Height, 81.2, kg, 02/04/19 1:40:00 EDT, Dry Weight Start Date: 09/27/19 Status: Ordered Xifaxan 550 mg oral tablet 1 tablet, By Mouth, 2 times a day, # 60 tablet, 0 Refills, Maintenance, 10/30/19 16:57:00 EDT, [facility], 175, cm, 08/24/19 14:14:00 EDT, Height, 81.2, kg, 02/04/19 1:40:00 EDT, Dry Weight Start Date: 10/30/19 Status: Ordered Xifaxan 550 mg oral tablet See Instructions, TAKE 1 TABLET BY MOUTH TWICE A DAY, # 60 tablet, 0 Refills, 01/26/20 14:26:00 EDT, [facility], 175, cm, 08/24/19 14:14:00 [...]
--- OUTSIDE RECORDS SUMMARY | 2023-12-15 21:02 | XMS_ITS | Continuity of Care Document ---
Author Organization [facility] Address [address] [place], [place] [address]christopher perez, [address] [place] [address]- Care Team Providers Care Poker Room Manager Name Role Phone Jany Baig DO Primary Care Physician [place] [facility] [place]05[place]20 - 01/08/21 [facility] [address] [place] [address], [address] [place] [address]- Attending Physician: Not on Staff, Attending MD [...] n 1Admin Note: #2 2Result Comment: [04/29/2017] [id number] 3Admin Note: FLUARIX 4Admin Note: 3 RDINJ Medications baclofen 10 mg oral tablet 1, tablet, By Mouth, 3 times a day, # 90 tablet, Refills 0, Tot. Refills 0, Maintenance, 12/25/20 8:36:00 EDT, Route to Pharmacy Electronically, [facility], 178, cm, 12/03/20 13:52:00 EDT, Height, 81.4, kg, 12/03/20 13:52:00 EDT, Dry Weight Start Date: 12/25/20 Status: Ordered chantix 1mg tablet 1 tablet, By Mouth, 2 times a day, # 56 tablet, 0 Refills, Acute, 11/22/20 16:13:00 EDT, [facility], 178, cm, 11/12/20 15:32:00 EDT, Height, 84.9, kg, 08/31/20 1:07:00 EDT, Dry Weight Start Date: 11/22/20 Status: Ordered Co Q-10 100 mg oral capsule See Instructions, TAKE 1 CAPSULE BY MOUTH FOUR TIMES DAILY, # 120 capsule, 7 Refills, Maintenance, [facility], 178, cm, 10/22/20 13:17:00 EDT, Height, 84.9, kg, 08/31/20 1:07:00 EDT, Dry Weight Start Date: 11/01/20 Status: Ordered Co Q-10 100 mg oral capsule 1 capsule, By Mouth, 4 times a day, # 120 capsule, 11 Refills, Maintenance, 11/21/19 10:36:00 EDT, [facility]acy #[id number], 175, cm, 08/24/19 14:14:00 EDT, Height, 81.2, kg, 02/04/19 1:40:00 EDT, Dry Weight Start Date: 11/21/19 Stop Date: 11/15/20 Status: Ordered fluticasone 50 mcg/inh nasal spray See Instructions, SPRAY 1 SPRAY INTO EACH NOSTRIL TWICE A DAY, # 16 Gm, 5 Refills, 07/09/20 11:38:00 EST, [facility], 30, SPRAY 1 SPRAY INTO EACH NOSTRIL TWICE A DAY, 175, cm, 04/02/20 0:35:00 EDT, Height, 100, kg, 04/02/20 0:35:00 EDT, Dry We... Start Date: 07/09/20 Status: Ordered gabapentin 600 mg oral tablet 1 tablet, By Mouth, 4 times a day, # 120 tablet, 0 Refills, Maintenance, 12/25/20 8:36:00 EDT, [facility], 178, cm, 12/03/20 13:52:00 EDT, Height, 81.4, kg, 12/03/20 13:52:00 EDT, Dry Weight Start Date: 12/25/20 Status: Ordered hydrOXYzine hydrochloride 25 mg oral tablet 1 TO 2 TABLETS, By Mouth, 3 times a day, PRN NEEDED FOR ANXIETY (VIAL), # 60 tablet, 3 Refills, Maintenance, 10/07/20 16:49:00 EDT, [facility], 178, cm, 08/31/20 11:25:00 EDT, Height, 84.9, kg, 08/31/20 1:07:00 EDT, Dry Weight Start Date: 10/07/20 Status: Ordered Keppra 500 mg oral tablet 1 tablet = 500 mg, By Mouth, 2 times a day, # 14 tablet, 0 Refills, Maintenance, 11/01/20 11:59:00 EDT, Tablet, [facility], Partial fill upon patient request if the prescription is for a schedule II opioid drug., 178, cm, 10/22/20 13:17:... Start Date: 11/01/20 Stop Date: 11/08/20 Status: Ordered melatonin 3 mg oral tablet 1 tablet = 3 mg, By Mouth, Daily at bedtime, PRN for insomnia, # 60 tablet, 4 Refills, Maintenance,07/18/20 17:30:00 EST, [facility], [facility], cm, 04/02/20 0:35:00 EDT, [...] EDT, Tablet, [facility], 175, cm, 08/24/19 14:14:00 EDT,Height, 81.2, kg, 02/04/19 1:40:00 EDT, Dry Weight Start Date: 10/06/19 Status: Ordered sertraline 50 mg oral tablet 1 tablet, By Mouth, Daily, TAKE ALONG WITH A 100MG TABLET to equal 150mg daily, # 90 tablet, 1 Refills, Maintenance, 10/06/19 15:57:00 EDT, [facility], 175, cm, 08/24/19 14:14:00 EDT, Height,81.2, kg, 02/04/19 1:40:00 EDT, Dry Weight Start Date: 10/06/19 Status: Ordered sildenafil 50 mg oral tablet 1 tablet = 50 mg, By Mouth, Daily, PRN erectile dysfunction, 1 hour before sexual activity, # 6 tablet, 5 Refills, Maintenance, 03/11/20 14:37:00 EDT, Tablet, [facility]/pharmacy #[id number], 175, cm, 08/24/19 14:14:00 EDT, Height, 81.2, kg, 02/04/19 1:40:00 EDT,... Start Date: 03/11/20 Status: Ordered Tab-A-Jesse oral tablet See Instructions, TAKE 1 TABLET BY MOUTH ONCE A DAY, # 30 tablet, 10 Refills, Maintenance, [facility], 28, TAKE 1 TABLET BY MOUTH [...] 0 Refills, Maintenance, 10/22/20 17:52:00 EDT, Tablet, [facility]/pharmacy #[id number], Partial fill upon patient request [...] Pharmacy Electronically, [facility], 178, cm, 10/22/20... Start Date: 11/01/20 Status: Ordered Vitamin B1 100 mg oral tablet 1, tablet, By Mouth, Daily, # 90 tablet, Refills 2, Tot. Refills 0, Acute, 09/05/20 17:32:00 EDT, Route to Pharmacy Electronically, [facility], 178, cm, 08/31/20 11:25:00 EDT, Height, 84.9, kg, 08/31/20 1:07:00 EDT, Dry Weight Start Date: 09/05/20 Status: Ordered Xifaxan 550 mg oral tablet 1 tablet, By Mouth, 2 times a day, # 60 tablet, 0 Refills, Maintenance, 04/16/20 14:45:00 EST, [facility]/pharmacy #[id number], 175, cm, 04/02/20 0:35:00 EDT, [...]
--- OUTSIDE RECORDS SUMMARY | 2023-12-15 21:02 | XMS_ITS | Continuity of Care Document ---
Author Organization [facility] Address [address] [place] [address]- Care Team Providers Care Manager Project Name Role Phone Jany Baig DO Primary Care Physician Encounter [facility] [place] Date(s): 08/04/23 - 09/03/23 [facility] [address] [place], [place] [address] Allergies, Adverse Reactions, Alerts Substance Reaction [...] 1Result Comment: [facility]: [id number] 2Result Comment: [04/29/2017] [id number] 3Admin Note: FLUARIX 4Admin Note: 3 RDINJ [...] tablet, 2 Refills, Maintenance, 07/28/23 11:06:00 EST, [facility], 175, cm, 07/28/23 9:11:00 EST, Height, 61.3, kg, 07/12/23 23:27:00 EST, Dry Weight Start Date: 07/28/23 Status: Ordered amLODIPine 5 mg oral tablet 1 tablet, By Mouth, Daily, ^1R1., # 30 tablet, 2 Refills, Maintenance, 06/02/23 8:00:00 EST, [facility], 175, cm, 03/22/23 6:50:00 EDT, [...] 07/28/23 11:10:00 EST, Route to Pharmacy Electronically, [facility], Partial fill upon patient request if [...] Gm, 12 Refills, Maintenance, 07/28/23 11:06:00 EST, [facility], 28, APPLY TOPICALLY TO AFFECTED AREA(S) [...] Gm, 1 Refills, Maintenance, 07/28/23 12:07:00 EST, [facility], 30, USE 1 SPRAY(S) INTO EACH [...] 07/28/23 12:09:00 EST, Route to Pharmacy Electronically, [facility], 175, cm, 07/28/23 9:11:00 EST, Height, [...] tablet, 3 Refills, Maintenance, 07/28/23 12:10:00 EST, [facility], 175, cm, 07/28/23 9:11:00 EST, Height, 61.3, kg,07/12/23 23:27:00 EST, Dry Weight Start Date: 07/28/23 Status: Ordered lactulose 10 gm/15 ml oral syrup 30 mL = 20 Gm, By Mouth, 3 times a day, for 30 days, # 2,700 mL, 2 Refills, Acute 10/26/23 12:13:00EDT, 07/28/23 12:13:00 EST, Syrup, [facility], Partial fill upon patient request if [...] 60 tablet, 11 Refills, Maintenance,07/28/23 12:09:00 EST, [facility], 175, cm, 07/28/23 9:11:00 EST, Height, [...] tablet, 5 Refills, Maintenance, 07/28/23 12:09:00 EST, [facility], 60, 1 tablet By Mouth Daily [...] 07/28/23 12:11:00 EST, Route to Pharmacy Electronically, [facility], 175, cm, 07/28/23 9:11:00EST, Height, 61.3, [...] 07/28/23 12:12:00 EST, Route to Pharmacy Electronically, [facility], 175, cm, 07/28/23 9:11:00 EST, Height, 61.3, kg, 07/12/23 23:27:00 EST, Dry Weight Start Date: 07/28/23 Status: Ordered spironolactone 25 mg oral tablet 1, tablet, By Mouth, Daily, ^1R2., # 30 tablet, Refills 5, Tot. Refills 5, Maintenance, 04/14/23 12:41:00 EDT, Route to Pharmacy Electronically, [facility], 175, cm, 03/22/23 6:50:00 EDT, Height, 77.5, kg, 03/20/23 11:30:00 EDT, Dry Weight Start Date: 04/14/23 Status: Ordered Tab-A-Jesse oral tablet 1 tablet, By Mouth, Daily, R1., # 30 tablet, 5 Refills, Maintenance, 05/06/23 19:16:00 EST, [facility], 30, TAKE 1 TABLET BY [...] 02/26/23 10:11:00 EDT, Route to Pharmacy Electronically, [facility], 175, cm, 12/03/22 11:50:00 EDT, Height,84, kg, 02/12/23 11:30:00 EDT, Dry Weight Start Date: 02/26/23 Status: Ordered traZODone 50 mg oral tablet 2, tablet, By Mouth, Daily at bedtime, ^2R4., # 60 tablet, Refills 5, Tot. Refills 5, Maintenance, 07/28/23 12:12:00 EST, Route to Pharmacy Electronically, [facility], 175, cm, 07/28/23 9:11:00 EST, Height, [...] 02/09/23 23:18:00 EDT, Route to Pharmacy Electronically, [facility], 175, cm, 12/03/22 11:50:00 EDT, Height, 88.9, kg, 10/21/22 20:41:00 EDT, Dry Weight Start Date: 02/09/23 Status: Ordered Vitamin B1 100 mg oral tablet 1, tablet, By Mouth, Daily, # 90 tablet, Refills 3, Tot. Refills 3, Maintenance, 07/28/23 12:12:00 EST, Route to Pharmacy Electronically, [facility], 175, cm, 07/28/23 9:11:00 EST, Height, 61.3, kg, 07/12/23 23:27:00 EST, Dry Weight Start Date: 07/28/23 Status: Ordered Vitamin B6 50 mg oral tablet 1, tablet, By Mouth, Daily, R1., # 90 tablet, Refills 4, Maintenance, 11/16/22 13:39:00 EDT, Route to Pharmacy Electronically, [facility], 175, cm, 11/13/22 10:42:00 EDT, Height, 88.9, kg, 10/21/22 20:41:00 EDT, Dry Weight Start Date: 11/16/22 Status: Ordered Vitamin B6 50 mg oral tablet 1, tablet, By Mouth, Daily, R1., # 90 tablet, Refills 4, Tot. Refills 4, Maintenance, 07/28/23 12:11:00 EST, Route to Pharmacy Electronically, [facility], 175, cm, 07/28/23 9:11:00 EST, Height, [...] each, 1 Refills, Maintenance, 07/28/23 14:33:00 EST, [facility], 175, cm, 07/28/23 9:11:00 EST, Height, [...] RN Position: [facility] ED RN W/OE and Tasks Member Role: Primary Care Nurse Name: Garima Manzano RN Position: [facility] RN Member Role: Primary Care Nurse Name: Malgorzata Marinelli RN Position: [facility] RN Member Role: Primary Care Nurse Name: Joyce Roach RN Position: [facility] ED RN W/OE and Tasks Member Role: Primary Care Nurse Name: Mary Suazo RN Position: [facility] RN Member Role: Primary Care Nurse Name: Lucina Peralta RN Position: [facility] RN Member Role: Primary Care Nurse Name: Maria Esther Craig LPN Position: [facility] RN Member Role: Primary Care Nurse Name: Kaye Comer RN Position: [facility] RN Member Role: Primary Care Nurse Name: Andres Pressley RN Position: [facility] ED RN W/OE and Tasks Member Role: Primary Care Nurse Name: Jany Baig DO Position: [facility] Physician - Primary Care Member Role: PCP Address: Address: [address] [place] [address] Adult [facility] [place] [address]- Name: Garima Curry RN Position: [facility] RN Member Role: Primary Care Nurse Name: Malgorzata Austin Position: [facility] RN Member Role: Primary Care Nurse Name: Ibeth Adams RN Position: [facility] RN Member Role: Primary Care Nurse Name: Torrie Hernandez RN Position: [facility] OB RN Member Role: Primary Care Nurse Name: Gretchen Knutson RN Position: [facility] SN RN Member Role: Primary Care Nurse Name: Aislinn Mckee RN Position: [facility] RN Member Role: Primary Care Nurse Name: Ashley Mcelroy Position: [facility] RN Member Role: Primary Care Nurse Name: Ashok Kevin RN Position: [facility] RN Member Role: Primary Care Nurse Name: Cody Garcia Position: [facility] Associate Professional Member Role: [employer] Consulting Provider Address: Address: [address] [place] [address]- Name: Paige Nascimento RN Position: [facility] RN Member Role: Primary Care Nurse Name: Ge Covarrubias RN Position: [facility] RN Member Role: Primary Care Nurse Name: Orin Elmore RN Position: [facility] ED RN W/OE and Tasks Member Role: Primary Care Nurse Name: Noe RNAllegra Position: [facility] AMB Nurse Member Role: Primary Care Nurse Name: Shayan Pandya MD Position: [facility] Renal MD Member Role: Lifetime Consulting Physician Address: Address: [address] [place] [address] [address] [facility], [place] [address]- Name: Kimberley Pittman RN Position: [facility] RN Member Role: Primary Care Nurse Name: Darlene Rodrigez RN Position: [facility] RN Member Role: Primary Care Nurse Name: Dixie Duke RN Position: S RN Member Role: Primary Care Nurse Name: Kwan Mills RN Position: [facility] ED RN W/OE and Tasks Member Role: Primary Care Nurse Name: Ingrid Verdugo RN Position: [facility] RN Member Role: Primary Care Nurse Name: Monica Rowell RN Position: [facility] RN Member Role: Primary Care Nurse Name: Jimi Fitzpatrick RN Position: [facility] RN Member Role: Primary Care Nurse Care Team Related Persons Name: CAWUMARLEN Address: [address] [place] [address] Name: MARLEN CABEZAS Address: [address] [place] [address] Name: NICK CABEZAS Name: GEMA CABEZAS Address: [address] [place] [address] Name: ELTON CHENG Address: home [address] [place] [id number]
--- OUTSIDE RECORDS SUMMARY | 2023-12-15 21:02 | XMS_ITS | Continuity of Care Document ---
Author Organization [facility] Address [address] [place] [address]- Care Team Providers Care Assistant Site Manager Name Role Phone Jany Baig DO Primary Care Physician Encounter [facility] Date(s): 01/22/22 - 02/21/22 [facility] [address] [place] [address]- Allergies, Adverse Reactions, Alerts Substance Reaction Severity [...] (oldterm) 08/02/12 Give n 1Result Comment: [04/29/2017] [id number] 2Admin Note: FLUARIX 3Admin Note: 3 RDINJ 4Admin Note: #2 Medications acetaminophen 500 mg oral tablet 1 tablet, By Mouth, 4 times a day, PRN NEEDED FOR PAIN, MAX 4, PER DAY (VIAL., # 50 tablet, 0 Refills, Maintenance, 02/18/22 12:43:00 EDT, [facility], 175, cm, 01/06/22 10:34:00 EDT, Height, 78.3, kg, 12/26/21 19:05:00 EDT, Dry Weight Start Date: 02/18/22 Status: Ordered amLODIPine 5 mg oral tablet 5 mg, 1, tablet, By Mouth, Daily, # 30 tablet, Refills 5, Tot. Refills 5, Maintenance, 10/21/21 10:15:00 EDT, Route to Pharmacy Electronically, [facility], Partial fill upon patient request if the prescription is for a schedule II opioid drug.... Start Date: 10/21/21 Status: Ordered Co Q-10 100 mg oral capsule 1 capsule, By Mouth, 4 times a day, # 120 capsule, 5 Refills, Maintenance, 02/18/22 12:44:00 EDT, [facility], 175, cm, 01/06/22 10:34:00 EDT, Height, [...] Refills, Maintenance, 02/18/22 10:02:00 EDT, [facility], 30, USE 1 SPRAY(S) INTO EACH NOSTRIL TWICE A DAY, 175, cm, 01/06/22 10:34:00 EDT, Height, 78.3, kg, 12/26/21 19... Start Date: 02/18/22 Status: Ordered folic acid 1 mg oral tablet 1 mg, 1, tablet, By Mouth, Daily, # 90 tablet, Refills 4, Tot. Refills 4, Maintenance, 10/27/21 10:40:00 EDT, Route to Pharmacy Electronically, [facility], Partial fill upon patient request if the prescription is for a schedule II opioid drug.... Start Date: 10/27/21 Stop Date: 01/20/23 Status: Ordered furosemide 20 mg oral tablet See Instructions, TAKE 1 TABLET BY MOUTH ONCE A DAY, # 30 tablet, Refills 0, Maintenance, 02/18/22 12:43:00 EDT, Instructions Replace Required Details, Route to Pharmacy Electronically, [facility], 175, cm, 01/06/22 10:34:00 EDT, Height, 78.3,... Start Date: 02/18/22 Status: Ordered furosemide 20 mg oral tablet 1, tablet, By Mouth, Daily, # 30 tablet, Refills 0, Maintenance, 02/18/22 12:44:00 EDT, Route to Pharmacy Electronically, [facility], 175, cm, 01/06/22 10:34:00 EDT, Height, 78.3, kg, 12/26/21 19:05:00 EDT, Dry Weight Start Date: 02/18/22 Status: Ordered hydrOXYzine hydrochloride 25 mg oral tablet 1 TO 2 TABLETS, By Mouth, 3 times a day, PRN NEEDED FOR ANXIETY (VIAL), # 60 tablet, 0 Refills, Maintenance, 02/18/22 12:45:00 EDT, [facility], 175, cm, 01/06/22 10:34:00 EDT, Height, 78.3, kg, 12/26/21 19:05:00 EDT, Dry Weight Start Date: 02/18/22 Status: Ordered lactulose 10 gm/15 ml oral syrup See Instructions, TAKE 30ML BY MOUTH THREE TIMES DAILY NEEDED TO ACHEIVE 3-4 BOWL MOVEMENTS PER DAY, # 3,000 mL, 10 Refills, [facility], 30, TAKE 30ML BY MOUTH THREE TIMES DAILY NEEDED TO ACHEIVE 3-4 BOWL MOVEMENTS PER DAY, 174, cm, 02/12... Start Date: 07/02/21 Status: Ordered lidocaine 0.5% topical gel 1 application, Topically, 3 times a day, # 120 Gm, 0 Refills, Acute 12/30/22 17:23:00 EDT, 12/30/2216:23:00 EDT, Gel, [facility], Partial fill upon patient request if the prescription is fora schedule II opioid drug., 1 application Topically... Start Date: 12/30/21 Stop Date: 12/30/22 Status: Ordered Lidoderm 5% film 1 patch, Topically, Daily, remove patches after 12 hours NSAIDS contraindicated High dose tylenol contraindicated, # 30 patch, 5 Refills, Maintenance, 12/26/21 9:33:00 EDT, [facility], Partial fill upon patient request if the prescription i... Start Date: 12/26/21 Status: Ordered magnesium oxide 400 mg oral tablet 1 tablet, By Mouth, 2 times a day, # 60 tablet, 0 Refills, Maintenance, 02/18/22 12:43:00 EDT, [facility], 175, cm, 01/06/22 10:34:00 EDT, Height, 78.3, kg, 12/26/21 19:05:00 EDT, Dry Weight Start Date: 02/18/22 Status: Ordered Melatonin 3 mg oral tablet 1 tablet, By Mouth, Daily at bedtime, PRN NEEDED FOR INSOMNIA (PACKAGE IN TRAY), # 60 tablet, 5 Refills, Maintenance, 06/02/21 16:17:00 EST, [facility], 28, 1 tablet By Mouth Daily [...] Stop Date: 04/19/22 Status: Ordered Potassium Chloride (Srk-Psmx-Dko M20) 20 mEq oral tablet, extended release See Instructions, TAKE 2 TABLETS BY MOUTH DAILY, # 60 tablet, 0 Refills, Maintenance, 02/18/22 12:43:00 EDT, [facility], 175, cm, 01/06/22 10:34:00 EDT, Height, 78.3, kg, 12/26/21 19:05:00 EDT, Dry Weight Start Date: 02/18/22 Status: Ordered pyridoxine 50 mg oral tablet 50 mg, 1, tablet, By Mouth, Daily, for 90 days, # 90 tablet, Refills 4, Tot. Refills 4, Acute 01/15/23 11:42:00 EDT, 10/22/21 11:42:00 EDT, Route to Pharmacy Electronically, [facility], Partial fill upon patient request [...] 90 tablet, 9 Refills, [facility], 28, TAKE 1 TABLET BY [...] Route to Pharmacy Electronically, [facility], 175,cm, 01/06/22 10:34:00 EDT, Height, 78.3, kg, ... Start Date: 01/30/22 Status: Ordered traZODone 50 mg oral tablet See Instructions, TAKE 2-3 TABLETS BY MOUTH AT BEDTIME (ONE DOSE IN VIAL), # 90 tablet, Refills 5, Tot. Refills 5, Maintenance, 12/26/21 9:21:00 EDT, Instructions Replace Required Details, Route to Pharmacy Electronically, [facility], 170, cm,... Start Date: 12/26/21 Status: Ordered Vitamin B1 100 mg oral tablet 1, tablet, By Mouth, Daily, # 90 tablet, Refills 0, Route to Pharmacy Electronically, [facility], 170, cm, 11/12/21 10:02:00 EDT, Height, 78, kg, 11/04/21 12:03:00 EDT, Dry Weight Start Date: 12/24/21 Status: Ordered Xifaxan 550 mg oral tablet 1 tablet, By Mouth, 2 times a day, # 60 tablet, 2 Refills, [facility], 175, cm, 01/06/22 10:34:00 EDT, [...] Team Personnel Name: Jany Baig DO Address: [address] [place] [address] [facility] [address]
--- OUTSIDE RECORDS SUMMARY | 2023-12-15 21:02 | XMS_ITS | Continuity of Care Document ---
Author Organization [facility] Address [address] [place] [address]- Care Team Providers Care Research Worker Encyclopedia Name Role Phone Jany Baig DO Primary Care Physician [facility]counter [facility] Date(s): 07/03/20 - 08/24/20 [facility] [address] [place], [place] [address] Attending Physician: Jany Baig DO [...] n 1Admin Note: #2 2Result Comment: [04/29/2017] [id number] 3Admin Note: FLUARIX 4Admin Note: 3 RDINJ Medications baclofen 10 mg oral tablet 10 mg, 1, tablet, By Mouth, 3 times a day, pt needs to schedule appt, # 90 tablet, Refills 0, Tot. Refills 0, Maintenance, 07/18/20 17:30:00 EST, Route to Pharmacy Electronically, [facility],175, cm, 04/02/20 0:35:00 EDT, Height, 100, kg, 10/... Start Date: 07/18/20 Stop Date: 08/17/20 Status: Ordered chantix 1mg tablet 1 tablet, By Mouth, 2 times a day, for 12 week(s), neeeds to schedule appt, # 56 tablet, 0 Refills,Acute 09/18/20 11:11:00 EDT, 06/26/20 11:11:00 EST, [facility], 175, cm, 04/02/20 0:35:00 EDT, Height, 100, kg, 04/02/20 0:35:00 EDT, Dry Weight Start Date: 06/26/20 Stop Date: 09/18/20 Status: Ordered Co Q-10 100 mg oral capsule 1 capsule, By Mouth, 4 times a day, # 120 capsule, 11 Refills, Maintenance, 11/21/19 10:36:00 EDT, [facility]/pharmacy #[id number], 175, cm, 08/24/19 14:14:00 EDT, Height, 81.2, kg, 02/04/19 1:40:00 EDT, Dry Weight Start Date: 11/21/19 Stop Date: 11/15/20 Status: Ordered Engerix-B 20 mcg/mL intramuscular suspension = 20 mcg, Intramuscular, Every 30 days, rpt at 1 and 6 months, # 1 mL, 2 Refills, Maintenance, 11/02/19 9:02:00 EDT, Suspension, [facility]/pharmacy #[id number], 175, cm, 08/24/19 14:14:00 EDT, Height, 81.2, kg, 02/04/19 1:40:00 EDT, Dry Weight Start Date: 11/02/19 Status: Ordered fluticasone 50 mcg/inh nasal spray See Instructions, SPRAY 1 SPRAY INTO EACH NOSTRIL TWICE A DAY, # 16 Gm, 5 Refills, 07/09/20 11:38:00 EST, [facility], 30, SPRAY 1 SPRAY INTO EACH NOSTRIL TWICE A DAY, 175, cm, 04/02/20 0:35:00 EDT, Height, 100, kg, 04/02/20 0:35:00 EDT, Dry We... Start Date: 07/09/20 Status: Ordered gabapentin 600 mg oral tablet 1 tablet, By Mouth, 4 times a day, # 120 tablet, 0 Refills, Maintenance, 08/07/20 12:03:00 EST, [facility], 175, cm, 04/02/20 0:35:00 EDT, Height, 100, kg, 04/02/20 0:35:00 EDT, Dry Weight Start Date: 08/07/20 Status: Ordered hydrOXYzine hydrochloride 25 mg oral tablet 1 TO 2 TABLETS, By Mouth, 3 times a day, PRN NEEDED FOR ANXIETY (VIAL), pt needs to schedule appt, # 60 tablet, 1 Refills, Maintenance, 07/18/20 17:31:00 EST, [facility], 175, cm, 04/02/200:35:00 EDT, Height, 100, kg, 04/02/20 0:35:00 EDT,... Start Date: 07/18/20 Status: Ordered lactulose 10 gm/15 ml oral syrup 30 mL = 20 Gm, By Mouth, 3 times a day, PRN Other, for 30 days, PRN to acheive 3-4 BMs per day fillin prefilled syringes, # 3,000 mL, 11 Refills, Acute 11/25/20 16:37:00 EDT, 12/01/19 16:37:00 EDT, Syrup, [facility], re sent from 10/04/17, 30... Start [...] tablet, 4 Refills, Maintenance,07/18/20 17:30:00 EST, Tablet, [facility], 175, cm, 04/02/20 0:35:00 EDT, [...] Refills, Maintenance, 04/16/20 14:45:00 EST, [facility]/pharmacy #[id number], 8, APPLY TOPICALLY THREE TIMES DAILY (APPLY A THINFILM), 175, cm, 04/02/20 0:35:00 EDT, Height, 100,... Start Date: 04/16/20 Status: Ordered mupirocin 2% topical ointment See Instructions, APPLY TOPICALLY THREE TIMES DAILY (APPLY A THIN FILM), # 22 Gm, 0 Refills, Acute,[facility], 8, APPLY TOPICALLY THREE TIMES [...] 10/06/19 15:57:00 EDT, Tablet, [facility], 175, cm, 08/24/19 14:14:00 EDT,Height, 81.2, kg, 02/04/19 1:40:00 EDT, Dry Weight Start Date: 10/06/19 Status: Ordered sertraline 50 mg oral tablet 1 tablet, By Mouth, Daily, TAKE ALONG WITH A 100MG TABLET to equal 150mg daily, # 90 tablet, 1 Refills, Maintenance, 10/06/19 15:57:00 EDT, [facility], 175, cm, 08/24/19 14:14:00 EDT, Height,81.2, kg, 02/04/19 1:40:00 EDT, Dry Weight Start Date: 10/06/19 Status: Ordered sildenafil 50 mg oral tablet 1 tablet = 50 mg, By Mouth, Daily, PRN erectile dysfunction, 1 hour before sexual activity, # 6 tablet, 5 Refills, Maintenance, 03/11/20 14:37:00 EDT, Tablet, [facility]/pharmacy #[id number], 175, cm, 08/24/19 14:14:00 EDT, Height, 81.2, kg, 02/04/19 1:40:00 EDT,... Start Date: 03/11/20 Status: Ordered Tab-A-Jesse oral tablet 1 tablet, By Mouth, Daily, # 90 tablet, 1 Refills, Maintenance, 05/21/20 9:35:00 EST, [facility], 1 tablet By Mouth Daily, 175, cm, 04/02/20 0:35:00 EDT, Height, 100, kg, 04/02/20 0:35:00 EDT, Dry Weight Start Date: 05/21/20 Status: Ordered Tab-A-Jesse oral tablet See Instructions, TAKE 1 TABLET BY MOUTH ONCE A DAY, # 30 tablet, 10 Refills, Maintenance, [facility], 28, TAKE 1 TABLET BY [facility], [facility], cm, 04/02/20 0:35:00 EDT, Height, 100,... Start Date: 08/07/20 Status: Ordered Vitamin B1 100 mg oral tablet 1, tablet, By Mouth, Daily, # 90 tablet, Refills 3, Tot. Refills 3, Maintenance, 09/27/19 8:51:00 EDT, Route to Pharmacy Electronically, [facility], 175, cm, 08/24/19 14:14:00 EDT, [...]
--- OUTSIDE RECORDS SUMMARY | 2023-12-15 21:02 | XMS_ITS | Continuity of Care Document ---
Author Organization [facility] Address [address] [place] [address]- Care Team Providers Care Headlight Adjuster Name Role Phone Jany Baig DO Primary Care Physician ( [phone] Encounter [facility] Date(s): 07/02/23 - 08/01/23 [facility] [address] [place], [place] [address] Allergies, Adverse Reactions, Alerts [...] 1Result Comment: [facility]: [id number] 2Result Comment: [04/29/2017] [id number] 3Admin Note: FLUARIX 4Admin Note: 3 RDINJ [...] tablet, 2 Refills, Maintenance, 07/28/23 11:06:00 EST, [facility], 175, cm, 07/28/23 9:11:00 EST, Height, 61.3, kg, 07/12/23 23:27:00 EST, Dry Weight Start Date: 07/28/23 Status: Ordered amLODIPine 5 mg oral tablet 1 tablet, By Mouth, Daily, ^1R1., # 30 tablet, 2 Refills, Maintenance, 06/02/23 8:00:00 EST, [facility], 175, cm, 03/22/23 6:50:00 EDT, [...] 08/05/23 19:16:00 EST, 07/29/23 19:16:00 EST, Tablet, [facility], Partial fill upon patient request if [...] Gm, 12 Refills, Maintenance, 07/28/23 11:06:00 EST, [facility], 28, APPLY TOPICALLY TO AFFECTED AREA(S) [...] 08/05/23 19:21:00 EST, 07/29/23 19:21:00 EST, Capsule, [facility], Partial fill upon patient requestif the [...] Gm, 1 Refills, Maintenance, 07/28/23 12:07:00 EST, [facility], 30, USE 1 SPRAY(S) INTO EACH [...] 07/28/23 12:08:00 EST, Route to Pharmacy Electronically, [facility], 175, cm, 07/28/23 9:11:00 EST, Height, 61.3, kg, 07/12/23 23:27:00 EST, Dry Weight Start Date: 07/28/23 Status: Ordered furosemide 20 mg oral tablet 20 mg, 1, tablet, By Mouth, Every other day, # 30 tablet, Refills 1, Tot. Refills 1, Maintenance, 07/28/23 12:08:00 EST, Route to Pharmacy Electronically, [facility], Partial fill upon patient request if the prescription is for a schedule II... Start Date: 07/28/23 Status: Ordered gabapentin 300 mg oral capsule 300 mg, 1, capsule, By Mouth, Daily at bedtime, note dose/frequency change, # 30 capsule, Refills 1, Tot. Refills 1, Maintenance, 07/28/23 12:09:00 EST, Route to Pharmacy Electronically, [facility], 175, cm, 07/28/23 9:11:00 EST, Height, [...] tablet, 3 Refills, Maintenance, 07/28/23 12:10:00 EST, [facility], 175, cm, 07/28/23 9:11:00 EST, Height, 61.3, kg,07/12/23 23:27:00 EST, Dry Weight Start Date: 07/28/23 Status: Ordered lactulose 10 gm/15 ml oral syrup 30 mL = 20 Gm, By Mouth, 3 times a day, for 30 days, # 2,700 mL, 2 Refills, Acute 10/26/23 12:13:00EDT, 07/28/23 12:13:00 EST, Syrup, [facility], Partial fill upon patient request if [...] 60 tablet, 11 Refills, Maintenance,07/28/23 12:09:00 EST, [facility], 175, cm, 07/28/23 9:11:00 EST, Height, [...] tablet, 5 Refills, Maintenance, 07/28/23 12:09:00 EST, [facility], 60, 1 tablet By Mouth Daily [...] 07/28/23 12:12:00 EST, Route to Pharmacy Electronically, [facility], 175, cm, 07/28/23 9:11:00 EST, Height, 61.3, kg, 07/12/23 23:27:00 EST, Dry Weight Start Date: 07/28/23 Status: Ordered spironolactone 25 mg oral tablet 1, tablet, By Mouth, Daily, ^1R2., # 30 tablet, Refills 5, Tot. Refills 5, Maintenance, 04/14/23 12:41:00 EDT, Route to Pharmacy Electronically, [facility], 175, cm, 03/22/23 6:50:00 EDT, Height, 77.5, kg, 03/20/23 11:30:00 EDT, Dry Weight Start Date: 04/14/23 Status: Ordered Tab-A-Jesse oral tablet 1 tablet, By Mouth, Daily, R1., # 30 tablet, 5 Refills, Maintenance, 05/06/23 19:16:00 EST, [facility], 30, [...] [facility], 175, cm, 12/03/22 11:50:00 EDT, Height,84, kg, 02/12/23 11:30:00 EDT, Dry Weight Start Date: 02/26/23 Status: Ordered traZODone 50 mg oral tablet 2, tablet, By Mouth, Daily at bedtime, ^2R4., # 60 tablet, Refills 5, Tot. Refills 5, Maintenance, 07/28/23 12:12:00 EST, Route to Pharmacy Electronically, [facility], 175, cm, 07/28/23 9:11:00 EST, Height, [...] [facility], 175, cm, 12/03/22 11:50:00 EDT, [...] [facility], 175, cm, 11/13/22 10:42:00 EDT, Height, 88.9, kg, 10/21/22 20:41:00 EDT, Dry Weight Start Date: 11/16/22 Status: Ordered Vitamin B6 50 mg oral tablet 1, tablet, By Mouth, Daily, R1., # 90 tablet, Refills 4, Tot. Refills 4, Maintenance, 07/28/23 12:11:00 EST, Route to Pharmacy Electronically, [facility], 175, cm, 07/28/23 9:11:00 EST, Height, [...] each, 1 Refills, Maintenance, 07/28/23 14:33:00 EST, [facility], 175, cm, 07/28/23 9:11:00 EST, Height, [...] Team Personnel Name: Shira Galindo RN Position: [facility] RN Member Role: Primary Care Nurse Name: Lisa Nunez RN Position: S RN Member Role: Primary Care Nurse Name: Alexandra Colmenares RN Position: [facility] ED RN W/OE and Tasks Member Role: Primary Care Nurse Name: Garima Manzano RN Position: [facility] RN Member Role: Primary Care Nurse Name: Malgorzata Marinelli RN Position: S RN Member Role: Primary Care Nurse Name: Joyce Roach RN Position: [facility] ED RN W/OE and Tasks Member Role: Primary Care Nurse Name: Mary Suazo RN Position: [facility] RN Member Role: Primary Care Nurse Name: Lucina Peralta RN Position: [facility] RN Member Role: Primary Care Nurse Name: Maria Esther Craig LPN Position: S RN Member Role: Primary Care Nurse Name: Andres Pressley RN Position: [facility] ED RN W/OE and Tasks Member Role: Primary Care Nurse Name: Jany Baig DO Position: [facility] Physician - Primary Care Member Role: PCP Address: Address: [address] [place] [address] Adult & Pediatric Medicine [place], [place] [address] Name: Kaye Payne RN Position: S RN Member Role: Primary Care Nurse Name: Garima Hutchinson Position: S RN Member Role: Primary Care Nurse Name: Malgorzata Austin Position: S RN Member Role: Primary Care Nurse Name: Ibeth Adams RN Position: [facility] RN Member Role: Primary Care Nurse Name: Torrie Hernandez RN Position: [facility] OB RN Member Role: Primary Care Nurse Name: Gretchen Knutson RN Position: [facility] SN RN Member Role: Primary Care Nurse Name: Aislinn Mckee RN Position: [facility] RN Member Role: Primary Care Nurse Name: Ashley Mcelroy Position: [facility] RN Member Role: Primary Care Nurse Name: Ashok Kevin RN Position: [facility] RN Member Role: Primary Care Nurse Name: Cody Garcia Position: [facility] Associate Professional Member Role: [employer] Consult[employer] Provider Address: Address: [address] [place] [address] Name: Paige Nascimento RN Position: [facility] RN Member Role: Primary Care Nurse Name: Ge Covarrubias RN Position: [facility] RN Member Role: Primary Care Nurse Name: Orin Elmore RN Position: [facility] ED RN W/OE and Tasks Member Role: Primary Care Nurse Name: Allegra Liu RN Position: [facility] AMB Nurse Member Role: Primary Care Nurse Name: Shayan Pandya MD Position: [facility] Renal MD Member Role: [employer] Consulting Physician Address: Address: [address] [place] [address] [address] [facility], [address] Name: Kimberley Pittman RN Position: [facility] RN Member Role: Primary Care Nurse Name: Darlene Rodrigez RN Position: [facility] RN Member Role: Primary Care Nurse Name: Dixie Duke RN Position: [facility] RN Member Role: Primary Care Nurse Name: Kwan Mills RN Position: [facility] ED RN W/OE and Tasks Member Role: Primary Care Nurse Name: Ingrid Verdugo RN Position: [facility] RN Member Role: Primary Care Nurse Name: Monica Rowell RN Position: [facility] RN Member Role: Primary Care Nurse Name: Jimi Fitzpatrick RN Position: [facility] RN Member Role: Primary Care Nurse Care Team Related Persons Name: MARLEN CABEZAS Address: home [address] [place] [id number] Name: RAULITO MARLEN Address: home [address] [place] [id number] Name: NICK CABEZAS Name: GEMA CABEZAS Address: home [address] [place] [address] Name: ELTON CHENG Address: home [address] [place] [address]
--- OUTSIDE RECORDS SUMMARY | 2023-12-15 21:03 | XMS_ITS | Continuity of Care Document ---
Author Organization [facility] ter Address [address] [place] [id number]- Care Team Providers Care Dyslexia Teacher Name Role Phone Jany Baig DO Primary Care Physician ( [phone] [place] [facility] [place] 07[place]14[place]22 - 07/15/[address] [address]- Discharge Disposition: A-D/C Home Attending Physician: Elsie Garcia DO Admitting Physician: Elsie Garcia DO Referring Physician: Not on Staff, Referring [...] Comment: [facility]: [id number] 2Result Comment: [04/29/2017] [id number] 3Admin Note: FLUARIX 4Admin Note: 3 RDINJ 5Admin Note: #2 Medications acetaminophen 500 mg oral tablet 1 tablet, By Mouth, 4 times a day, PRN NEEDED FOR PAIN, MAX 4, PER DAY (VIAL., # 50 tablet, 11 Refills, Maintenance, 03/13/22 8:37:00 EDT, [facility], 175, cm, 01/06/22 10:34:00 EDT, Height, 78.3, kg, 12/26/21 19:05:00 EDT, Dry Weight Start Date: 03/13/22 Status: Ordered amLODIPine 5 mg oral tablet See Instructions, TAKE 1 TABLET BY MOUTH ONCE A DAY^1R1, # 30 tablet, 5 Refills, Maintenance, 05/13/22 16:24:00 EST, [facility], 175, cm, 04/09/22 15:34:00 EDT, Height, 78.3, kg, 12/26/21 19:05:00 EDT, Dry Weight Start Date: 05/13/22 Status: Ordered Co Q-10 100 mg oral capsule 1 capsule, By Mouth, 4 times a day, # 120 capsule, 5 Refills, Maintenance, 04/09/22 15:55:00 EDT, [facility], 175, cm, 04/09/22 15:34:00 EDT, Height, [...] Refills, Maintenance, 02/18/22 10:02:00 EDT, [facility], 30, USE 1 SPRAY(S) INTO EACH NOSTRIL TWICE A DAY, 175, cm, 01/06/22 10:34:00 EDT, Height, 78.3, kg, 12/26/21 19... Start Date: 02/18/22 Status: Ordered folic acid 1 mg oral tablet 1 mg, 1, tablet, By Mouth, Daily, # 90 tablet, Refills 4, Tot. Refills 4, Maintenance, 10/27/21 10:40:00 EDT, Route to Pharmacy Electronically, [facility], Partial fill upon patient request if the prescription is for a schedule II opioid drug.... Start Date: 10/27/21 Stop Date: 01/20/23 Status: Ordered furosemide 20 mg oral tablet 1, tablet, By Mouth, Daily, note dose change, # 30 tablet, Refills 2, Tot. Refills 2, Maintenance, 04/09/22 15:53:00 EDT, [facility], 175, cm, 04/09/22 15:34:00 EDT, Height, [...] 60 tablet, 11 Refills,Maintenance, 03/13/22 8:38:00 EDT, [facility], 175, cm, 01/06/22 10:34:00 EDT, Height, 78.3, kg, 12/26/21 19:05:00 EDT, Dry Weight Start Date: 03/13/22 Status: Ordered lactulose 10 gm/15 ml oral syrup See Instructions, TAKE 30ML BY MOUTH THREE TIMES DAILY NEEDED TO ACHEIVE 3-4 BOWL MOVEMENTS PER DAY, # 3,000 mL, 10 Refills, [facility], 30, TAKE 30ML BY MOUTH THREE TIMES DAILY NEEDED TO ACHEIVE 3-4 BOWL MOVEMENTS PER DAY, 174, cm, 02/12... Start Date: 07/02/21 Status: Ordered lidocaine 0.5% topical gel 1 application, Topically, 3 times a day, # 120 Gm, 0 Refills, Acute 12/30/22 17:23:00 EDT, 12/30/2216:23:00 EDT, Gel, [facility], Partial fill upon patient request if the prescription is fora schedule II opioid drug., 1 application Topically... Start Date: 12/30/21 Stop Date: 12/30/22 Status: Ordered Lidoderm 5% film 1 patch, Topically, Daily, remove patches after 12 hours NSAIDS contraindicated High dose tylenol contraindicated, # 30 patch, 5 Refills, Maintenance, 12/26/21 9:33:00 EDT, [facility], Partial fill upon patient request if the prescription i... Start Date: 12/26/21 Status: Ordered magnesium oxide 400 mg oral tablet 1 tablet, By Mouth, 2 times a day, # 60 tablet, 11 Refills, Maintenance, 03/13/22 8:37:00 EDT, [facility], 175, cm, 01/06/22 10:34:00 EDT, Height, 78.3, kg, 12/26/21 19:05:00 EDT, Dry Weight Start Date: 03/13/22 Status: Ordered Melatonin 3 mg oral tablet 1 tablet, By Mouth, Daily at bedtime, PRN NEEDED FOR INSOMNIA (PACKAGE IN TRAY)^1R4, # 60 tablet, 5 Refills, Maintenance, 06/12/22 18:11:00 EST, [facility], 60, TAKE 1 TABLET BY [...] 04/09/22 16:00:00 EDT, Route to Pharmacy Electronically, [facility], Partial fill upon patient requestif the prescription is for a schedule II opioid remedios... Start Date: 04/09/22 Stop Date: 10/06/22 Status: Ordered Potassium Chloride (Eqv-K-Tab) 20 mEq oral tablet, extended release 2 tablet, By Mouth, Daily, # 180 tablet, 1 Refills, Maintenance, 05/13/22 9:48:00 EST, [facility], 175, cm, 04/09/22 15:34:00 EDT, Height, 78.3, kg, 12/26/21 19:05:00 EDT, Dry Weight Start Date: 05/13/22 Stop Date: 11/09/22 Status: Ordered pyridoxine 50 mg oral tablet 50 mg, 1, tablet, By Mouth, Daily, for 90 days, # 90 tablet, Refills 4, Tot. Refills 4, Acute 01/15/23 11:42:00 EDT, 10/22/21 11:42:00 EDT, Route to Pharmacy Electronically, [facility], Partial fill upon patient request if [...] Refills, Maintenance, 03/12/22 17:21:00 EDT, Tablet, [id number], Partial fill upon patient request if the prescription is for a schedule II opioid drug., 175, cm,... Start Date: 03/12/22 Status: Ordered Tab-A-Jesse oral tablet 1 tablet, By Mouth, Daily, # 90 tablet, 9 Refills, [facility], 28, TAKE 1 TABLET BY MOUTH ONCE A DAY, 174, cm, 07/14/21 8:16:00 EST, Height, 81, kg, 02/27/21 14:06:00 EDT, Dry Weight Start Date: 07/22/21 Status: Ordered traZODone 50 mg oral tablet 2 TO 3 TABLETS, By Mouth, Daily at bedtime, #28 VIAL)^2R4., # 90 tablet, Refills 5, Maintenance, 06/12/22 18:11:00 EST, Route to Pharmacy Electronically, [facility], 179, cm, 06/08/22 7:37:00EST, Height, 84, kg, 06/01/22 12:27:00 EST, Dry Weight Start Date: 06/12/22 Status: Ordered Vitamin B1 100 mg oral tablet 1, tablet, By Mouth, Daily, # 90 tablet, Refills 3, Maintenance, 03/13/22 8:37:00 EDT, Route to Pharmacy Electronically, [facility], 175, cm, 01/06/22 10:34:00 EDT, Height, 78.3, kg, 12/26/2218:05:00 EDT, Dry Weight Start Date: 03/13/22 Status: Ordered Xifaxan 550 mg oral tablet 1 tablet, By Mouth, 2 times a day, ^1R1,1R4., # 60 tablet, 1 Refills, Maintenance, 06/12/22 18:10:00 EST, [facility], 179, cm, 06/08/22 7:37:00 EST, Height, [...] for Microbiology Reports Name Date Blood Culture 07/14/22 Blood Culture #2 07/14/22 Microbiology Reports TEST:Blood Culture, Second Order STATUS:Unauthenticated BODY SITE: SOURCE:Blood COLLECTED DATE/TIME:07/14/22 4:04 PM Blood Culture, Second Order SPECIMEN DESCRIPTION : BLOOD SPECIAL REQUESTS : NONE CULTURE : NO GROWTH AFTER 24 HOURS REPORT STATUS : PRELIMINARY REPORT TEST:Blood Culture STATUS:Unauthenticated BODY SITE: SOURCE:Blood COLLECTED DATE/TIME:07/14/22 3:47 PM Blood Culture SPECIMEN DESCRIPTION : BLOOD SPECIAL REQUESTS : NONE CULTURE : NO GROWTH AFTER 24 HOURS REPORT STATUS : PRELIMINARY REPORT Radiology Reports * Exam Date Time Procedure Performing Provider Status 07/14/22 5:[address] Abd/Pelvis W/ IV Contrast Only Christiano Hurtado; Auth (Verified) Notes: (CT Abd/Pelvis W/ IV Contrast Only) Reason For Exam: LLQ abdominal pain;Other: RESULT: CT Abd/Pelvis W/ IV Contrast Only CT Chest W/ Contrast, CT Abd/Pelvis W/ IV Contrast Only INDICATION: Hx of Present Illness: from home 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 100 cc of Omnipaque 300 was administered intravenously. This study was performed without oral contrast. Weight-based protocol was performed using automatic exposure control. CTDIvol Body: 13.17 mGy, DLP Body: 944 mGy*cm. COMPARISON: 07/04/2022. FINDINGS: Management Analyst view findings, lines and tubes: None. Trachea and airways: Patent without evidence of tracheal or endobronchial lesion. Lungs and pleura: Clear lungs. No effusion or pneumothorax. Mediastinum and daisy: No mass or hematoma. No mediastinal or hilar lymphadenopathy. No esophageal abnormality. Heart: Heart is normal in size. No pericardial effusion. Mild coronary artery calcification. Aorta: No aortic aneurysm. Pulmonary arteries: Normal caliber. No evidence of pulmonary embolism on this study performed without angiographic technique. Chest wall soft tissues: No acute abnormality. Mild symmetric gynecomastia. Diaphragm: Intact. Liver: Cirrhotic liver with TIPS in place. There is a poorly defined 2.3 cm hypodense lesion in segment IVb (image 114, series 606), not seen on recent CT, which may be related to differences in contrast timing Gallbladder: Distended gallbladder with cholelithiasis but no evidence of acute cholecystitis.. Bile ducts: No biliary ductal dilation. Spleen: Splenomegaly measuring 14.5 cm AP. Pancreas: No suspicious lesion or ductal dilatation. [...] nodes: No enlarged lymph nodes. Blood vessels: Multiple vascular coils in the epigastric region. There are varicose veins in the left upper quadrant and epigastric region. Mild vascular calcifications but no aneurysm. No evidence of venous thrombosis. Abdominal and pelvic wall soft tissues: There is asymmetric enlargement of the right gluteus teresita muscle with a peripherally enhancing intramuscular collection extending to the subcutaneous tissues measuring 5.8 x 2.3 x 4.2 cm in metallic structures along its medial aspect (image 169 of series 606). It measured up to 3.4 cm previously. Fat-containing small umbilical and bilateral inguinal hernias. Bones: Subacute or chronic nondisplaced fracture of the left medial clavicle. There are numerous subacute or chronic appearing bilateral rib fractures and a fracture in the left scapula. Subacute left transverse process fractures of of T3-T9. Comminuted fracture of the right femur with a femoral eduardo and tension screw in place. IMPRESSION: 1. Fluid collection in the right gluteus maximum muscle with subcutaneous extension has increased in size since the prior, raising the concern for superimposed infection to pre-existing hematoma. 2. Cirrhotic liver with TIPS in place and splenomegaly. A 2.3 cm hypodense liver lesion was not seen on prior CT, which may be due to differences in contrast timing. Follow-up with nonemergent MRI isrecommended. 3. Several subacute or chronic appearing fractures as detailed above. WSN: [id number] Ordering Physician: Nicole Guerrero Dictated By: Dominic Martinez MD Dictated Date/Time: 07/14/22 6:20 pm Reviewed By: Dominic Martinez MD Signed By: Dominic Martinez MD Signed Date/Time: 07/14/22 6:20 pm Transcribed By: MIRNA Transcribed Date/Time: 07/14/22 6:17 pm * Exam Date Time Procedure Performing Provider Status 07/14/22 5:[address] Chest W/ Contrast Ama Zhang [facility] (Verified) Notes: (CT Chest W/ Contrast) Reason For Exam: Pulmonary Lesion;Other: RESULT: CT Chest W/ Contrast CT Chest W/ Contrast, CT Abd/Pelvis W/ IV Contrast Only INDICATION: Hx of Present Illness: from home 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 100 cc of Omnipaque 300 was administered intravenously. This study was performed without oral contrast. Weight-based protocol was performed using automatic exposure control. CTDIvol Body: 13.17 mGy, DLP Body: 944 mGy*cm. COMPARISON: 07/04/2022. FINDINGS: Management Analyst view findings, lines and tubes: None. Trachea and airways: Patent without evidence of tracheal or endobronchial lesion. Lungs and pleura: Clear lungs. No effusion or pneumothorax. Mediastinum and daisy: No mass or hematoma. No mediastinal or hilar lymphadenopathy. No esophageal abnormality. Heart: Heart is normal in size. No pericardial effusion. Mild coronary artery calcification. Aorta: No aortic aneurysm. Pulmonary arteries: Normal caliber. No evidence of pulmonary embolism on this study performed without angiographic technique. Chest wall soft tissues: No acute abnormality. Mild symmetric gynecomastia. Diaphragm: Intact. Liver: Cirrhotic liver with TIPS in place. There is a poorly defined 2.3 cm hypodense lesion in segment IVb (image 114, series 606), not seen on recent CT, which may be related to differences in contrast timing Gallbladder: Distended gallbladder with cholelithiasis but no evidence of acute cholecystitis.. Bile ducts: No biliary ductal dilation. Spleen: Splenomegaly measuring 14.5 cm AP. Pancreas: No suspicious lesion or ductal dilatation. [...] nodes: No enlarged lymph nodes. Blood vessels: Multiple vascular coils in the epigastric region. There are varicose veins in the left upper quadrant and epigastric region. Mild vascular calcifications but no aneurysm. No evidence of venous thrombosis. Abdominal and pelvic wall soft tissues: There is asymmetric enlargement of the right gluteus teresita muscle with a peripherally enhancing intramuscular collection extending to the subcutaneous tissues measuring 5.8 x 2.3 x 4.2 cm in metallic structures along its medial aspect (image 169 of series 606). It measured up to 3.4 cm previously. Fat-containing small umbilical and bilateral inguinal hernias. Bones: Subacute or chronic nondisplaced fracture of the left medial clavicle. There are numerous subacute or chronic appearing bilateral rib fractures and a fracture in the left scapula. Subacute left transverse process fractures of of T3-T9. Comminuted fracture of the right femur with a femoral eduardo and tension screw in place. IMPRESSION: 1. Fluid collection in the right gluteus maximum muscle with subcutaneous extension has increased in size since the prior, raising the concern for superimposed infection to pre-existing hematoma. 2. Cirrhotic liver with TIPS in place and splenomegaly. A 2.3 cm hypodense liver lesion was not seen on prior CT, which may be due to differences in contrast timing. Follow-up with nonemergent MRI isrecommended. 3. Several subacute or chronic appearing fractures as detailed above. WSN: [id number] Ordering Physician: Nicole Guerrero Dictated By: Dominic Martinez MD Dictated Date/Time: 07/14/22 6:20 pm Reviewed By: Dominic Martinez MD Signed By: Dominic Martinez MD Signed Date/Time: 07/14/22 6:20 pm Transcribed By: MIRNA Transcribed Date/Time: 07/14/22 6:17 pm * Exam Date Time Procedure Performing Provider Status 07/14/22 5:[address] Cervical Spine W/O Contrast Christiano Zhang; Auth (Verified) Notes: (CT Cervical Spine W/O Contrast) Reason For Exam: Neck trauma, dangerous injury mechanism;Other: RESULT: CT Cervical Spine W/O Contrast CT Head/Brain W/O Contrast, CT Cervical Spine W/O Contrast INDICATION: Hx of Present Illness: from home 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 Automatic tube modulation was used for the cervical spine and iterative dose reconstruction was used for both the head and cervical spine to optimize scan parameters and image quality. CTDIvol Body: 24.24 mGy, DLP Body: 504 mGy*cm. CTDIvol Head: 42.50 mGy, DLP Head: 765 mGy*cm. COMPARISON: None. FINDINGS: Management Analyst View Findings, Lines and Tubes: None. BRAIN AND EXTRA-AXIAL SPACES: No parenchymal hemorrhage, midline shift, or mass effect. Clancy-white matter differentiation is wellpreserved. No acute infarct. Ventricles, sulci, and basilar cisterns are normal. No white matter lesions. No subarachnoid hemorrhage. No subdural or epidural collection. CALVARIUM, SKULL BASE, AND SOFT TISSUES: No fractures or suspicious bony lesions. The paranasal sinuses and mastoid air cells are clear. Visualized orbits and globes are intact. The extracranial soft tissues are unremarkable. CERVICAL SPINE: No fracture. No acute osseous abnormalities. Normal alignment. No locked or perched facet. Intervertebral disc spaces and vertebral body heightsare preserved. OTHER BONES: Bilateral rib fractures and right T1 transverse process fracture unchanged. CERVICAL SOFT TISSUES AND LUNG APICES: Normal soft tissues. Visualized lung apices are clear. IMPRESSION: No new abnormality identified in the head or cervical spine Bilateral rib fractures and right T1 transverse process fracture similar to previous exam. WSN: [id number] Ordering Physician: Nicole Guerrero Dictated By: Aleksandr Hodge MD Dictated Date/Time: 07/14/22 5:46 pm Reviewed By: Alekasndr Hodge MD Signed By: Aleksandr Hodge MD Signed Date/Time: 07/14/22 5:46 pm Transcribed By: MIRNA Transcribed Date/Time: 07/14/22 5:34 pm * Exam Date Time Procedure Performing Provider Status 07/14/22 5:[address] Head/Brain W/O Contrast Beaulieu; Auth (Verified) Notes: (CT Head/Brain W/O Contrast) Reason For Exam: Trauma RESULT: CT Head/Brain W/O Contrast CT Head/Brain W/O Contrast, CT Cervical Spine W/O Contrast INDICATION: Hx of Present Illness: from home 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 Automatic tube modulation was used for the cervical spine and iterative dose reconstruction was used for both the head and cervical spine to optimize scan parameters and image quality. CTDIvol Body: 24.24 mGy, DLP Body: 504 mGy*cm. CTDIvol Head: 42.50 mGy, DLP Head: 765 mGy*cm. COMPARISON: None. FINDINGS: Management Analyst View Findings, Lines and Tubes: None. BRAIN AND EXTRA-AXIAL SPACES: No parenchymal hemorrhage, midline shift, or mass effect. Clancy-white matter differentiation is wellpreserved. No acute infarct. Ventricles, sulci, and basilar cisterns are normal. No white matter lesions. No subarachnoid hemorrhage. No subdural or epidural collection. CALVARIUM, SKULL BASE, AND SOFT TISSUES: No fractures or suspicious bony lesions. The paranasal sinuses and mastoid air cells are clear. Visualized orbits and globes are intact. The extracranial soft tissues are unremarkable. CERVICAL SPINE: No fracture. No acute osseous abnormalities. Normal alignment. No locked or perched facet. Intervertebral disc spaces and vertebral body heightsare preserved. OTHER BONES: Bilateral rib fractures and right T1 transverse process fracture unchanged. CERVICAL SOFT TISSUES AND LUNG APICES: Normal soft tissues. Visualized lung apices are clear. IMPRESSION: No new abnormality identified in the head or cervical spine Bilateral rib fractures and right T1 transverse process fracture similar to previous exam. WSN: [id number] Ordering Physician: Nicole Guerrero Dictated By: Aleksandr Hodge MD Dictated Date/Time: 07/14/22 5:46 pm Reviewed By: Aleksandr Hodge MD Signed By: Aleksandr Hodge MD Signed Date/Time: 07/14/22 5:46 pm Transcribed By: MIRNA Transcribed Date/Time: 07/14/22 5:34 pm Vital Signs Most recent to oldest [Reference Range]: 1 2 3 Oxygen Saturation [94-100 %] 97 % (07/14/22 10:49 PM) 98 % (07/14/22 4:56 PM) 98 % (07/14/22 3:31 PM) Pulse Rate [55-90 bpm] 115 bpm *H* (07/14/22 10:49 PM) 100 bpm *H* (07/14/22 10:44 PM) 125 bpm *H* (07/14/22 9:38 PM) Blood Pressure [90-138/55-84 mm Hg] 142/77mm Hg *H* (07/14/22 10:49 PM) 154/86mm Hg *H* (07/14/22 4:58 PM) 154/82mm Hg *H* (07/14/22 4:56 PM) Respiratory Rate [16-30 br/min] 15 br/min *L* (07/14/22 10:49 PM) 18 br/min (07/14/22 10:44 PM) 15 br/min *L* (07/14/22 9:38 PM) Temperature [96.8-100.4 DegF] 98.4 DegF (07/14/22 3:31 PM) Mode of Delivery (Oxygen) Room air (07/14/22 10:49 PM) Room air (07/14/22 4:56 PM) Room air (07/14/22 3:31 PM) Temperature Route Oral (07/14/22 3:31 PM) Social History Social History Type Response Smoking Status 10 or more cigarette s (1/2 pack or more)/day in last 30 days entered on: 02/04/19 Sex EKG study * Event Display: ECG 12-Lead Authored Date: [id number] Please click on pdf link to open report * Event Display: ECG 12-Lead Authored Date: [id number] Ventricular Rate: 111 BPM Atrial Rate: 111 BPM P-R Interval: 156 ms QRS Duration: 82 ms Q-T Interval: 366 ms QTC Calculation(Bazett): 497 ms P Aledo: 45 degrees R Aledo: 46 degrees T Aledo: 35 degrees Sinus tachycardia Otherwise normal ECG When compared with ECG of 09-JUL-2022 09:52, No significant change was found Confirmed by JENSEN WHITE ([id number]) on 07/15/2022 8:34:23 AM [place]: JENSEN WHITE Note * Nicole Guerrero DO: PERFORM, SIGN, VERIFY Event Display: Patient Education Handout Authored Date: [id number] CT Cervical spine WO contrast * [facility] , CIS S: TRANSCRIBE Naveen LEE, Aleksandr S: VERIFY Event Display: Result: Authored Date: [id number] CT Head/Brain W/O Contrast, CT Cervical Spine W/O Contrast INDICATION: Hx of Present Illness: from home 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 Automatic tube modulation was used for the cervical spine and iterative dose reconstruction was used for both the head and cervical spine to optimize scan parameters and image quality. CTDIvol Body: 24.24 mGy, DLP Body: 504 mGy*cm. CTDIvol Head: 42.50 mGy, DLP Head: 765 mGy*cm. COMPARISON: None. FINDINGS: Management Analyst View Findings, Lines and Tubes: None. BRAIN AND EXTRA-AXIAL SPACES: No parenchymal hemorrhage, midline shift, or mass effect. Clancy-white matter differentiation is wellpreserved. No acute infarct. Ventricles, sulci, and basilar cisterns are normal. No white matter lesions. No subarachnoid hemorrhage. No subdural or epidural collection. CALVARIUM, SKULL BASE, AND SOFT TISSUES: No fractures or suspicious bony lesions. The paranasal sinuses and mastoid air cells are clear. Visualized orbits and globes are intact. The extracranial soft tissues are unremarkable. CERVICAL SPINE: No fracture. No acute osseous abnormalities. Normal alignment. No locked or perched facet. Intervertebral disc spaces and vertebral body heightsare preserved. OTHER BONES: Bilateral rib fractures and right T1 transverse process fracture unchanged. CERVICAL SOFT TISSUES AND LUNG APICES: Normal soft tissues. Visualized lung apices are clear. IMPRESSION: No new abnormality identified in the head or cervical spine Bilateral rib fractures and right T1 transverse process fracture similar to previous exam. 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 Automatic tube modulation was used for the cervical spine and iterative dose reconstruction was used for both the head and cervical spine to optimize scan parameters and image quality. CTDIvol Body: 24.24 mGy, DLP Body: 504 mGy*cm. CTDIvol Head: 42.50 mGy, DLP Head: 765 mGy*cm. COMPARISON: None. FINDINGS: Management Analyst View Findings, Lines and Tubes: None. BRAIN AND EXTRA-AXIAL SPACES: No parenchymal hemorrhage, midline shift, or mass effect. Clancy-white matter differentiation is wellpreserved. No acute infarct. Ventricles, sulci, and basilar cisterns are normal. No white matter lesions. No subarachnoid hemorrhage. No subdural or epidural collection. CALVARIUM, SKULL BASE, AND SOFT TISSUES: No fractures or suspicious bony lesions. The paranasal sinuses and mastoid air cells are clear. Visualized orbits and globes are intact. The extracranial soft tissues are unremarkable. CERVICAL SPINE: No fracture. No acute osseous abnormalities. Normal alignment. No locked or perched facet. Intervertebral disc spaces and vertebral body heightsare preserved. OTHER BONES: Bilateral rib fractures and right T1 transverse process fracture unchanged. CERVICAL SOFT TISSUES AND LUNG APICES: Normal soft tissues. Visualized lung apices are clear. IMPRESSION: No new abnormality identified in the head or cervical spine Bilateral rib fractures and right T1 transverse process fracture similar to previous exam. WSN: [id number] Ordering Physician: Nicole Guerrero Dictated By: Aleksandr Hodge MD Dictated Date/Time: 07/14/22 5:46 pm Reviewed By: Aleksandr Hodge MD Signed By: Aleksandr Hodge MD Signed Date/Time: 07/14/22 5:46 pm Transcribed By: MIRNA Transcribed Date/Time: 07/14/22 5:[address] Abdomen and Pelvis W contrast IV * [facility] , CIS S: TRANSCRIBE Michelle LEE, Dominic: VERIFY Event Display: Result: Authored Date: [id number] CT Chest W/ Contrast, CT Abd/Pelvis W/ IV Contrast Only INDICATION: Hx of Present Illness: from home 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 100 cc of Omnipaque 300 was administered intravenously. This study was performed without oral contrast. Weight-based protocol was performed using automatic exposure control. CTDIvol Body: 13.17 mGy, DLP Body: 944 mGy*cm. COMPARISON: 07/04/2022. FINDINGS: Management Analyst view findings, lines and tubes: None. Trachea and airways: Patent without evidence of tracheal or endobronchial lesion. Lungs and pleura: Clear lungs. No effusion or pneumothorax. Mediastinum and daisy: No mass or hematoma. No mediastinal or hilar lymphadenopathy. No esophageal abnormality. Heart: Heart is normal in size. No pericardial effusion. Mild coronary artery calcification. Aorta: No aortic aneurysm. Pulmonary arteries: Normal caliber. No evidence of pulmonary embolism on this study performed without angiographic technique. Chest wall soft tissues: No acute abnormality. Mild symmetric gynecomastia. Diaphragm: Intact. Liver: Cirrhotic liver with TIPS in place. There is a poorly defined 2.3 cm hypodense lesion in segment IVb (image 114, series 606), not seen on recent CT, which may be related to differences in contrast timing Gallbladder: Distended gallbladder with cholelithiasis but no evidence of acute cholecystitis.. Bile ducts: No biliary ductal dilation. Spleen: Splenomegaly measuring 14.5 cm AP. Pancreas: No suspicious lesion or ductal dilatation. [...] nodes: No enlarged lymph nodes. Blood vessels: Multiple vascular coils in the epigastric region. There are varicose veins in the left upper quadrant and epigastric region. Mild vascular calcifications but no aneurysm. No evidence of venous thrombosis. Abdominal and pelvic wall soft tissues: There is asymmetric enlargement of the right gluteus teresita muscle with a peripherally enhancing intramuscular collection extending to the subcutaneous tissues measuring 5.8 x 2.3 x 4.2 cm in metallic structures along its medial aspect (image 169 of series 606). It measured up to 3.4 cm previously. Fat-containing small umbilical and bilateral inguinal hernias. Bones: Subacute or chronic nondisplaced fracture of the left medial clavicle. There are numerous subacute or chronic appearing bilateral rib fractures and a fracture in the left scapula. Subacute left transverse process fractures of of T3-T9. Comminuted fracture of the right femur with a femoral eduardo and tension screw in place. IMPRESSION: 1. Fluid collection in the right gluteus maximum muscle with subcutaneous extension has increased in size since the prior, raising the concern for superimposed infection to pre-existing hematoma. 2. Cirrhotic liver with TIPS in place and splenomegaly. A 2.3 cm hypodense liver lesion was not seen on prior CT, which may be due to differences in contrast timing. Follow-up with nonemergent MRI isrecommended. 3. Several subacute or chronic appearing fractures as detailed above. 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 100 cc of Omnipaque 300 was administered intravenously. This study was performed without oral contrast. Weight-based protocol was performed using automatic exposure control. CTDIvol Body: 13.17 mGy, DLP Body: 944 mGy*cm. COMPARISON: 07/04/2022. FINDINGS: Management Analyst view findings, lines and tubes: None. Trachea and airways: Patent without evidence of tracheal or endobronchial lesion. Lungs and pleura: Clear lungs. No effusion or pneumothorax. Mediastinum and daisy: No mass or hematoma. No mediastinal or hilar lymphadenopathy. No esophageal abnormality. Heart: Heart is normal in size. No pericardial effusion. Mild coronary artery calcification. Aorta: No aortic aneurysm. Pulmonary arteries: Normal caliber. No evidence of pulmonary embolism on this study performed without angiographic technique. Chest wall soft tissues: No acute abnormality. Mild symmetric gynecomastia. Diaphragm: Intact. Liver: Cirrhotic liver with TIPS in place. There is a poorly defined 2.3 cm hypodense lesion in segment IVb (image 114, series 606), not seen on recent CT, which may be related to differences in contrast timing Gallbladder: Distended gallbladder with cholelithiasis but no evidence of acute cholecystitis.. Bile ducts: No biliary ductal dilation. Spleen: Splenomegaly measuring 14.5 cm AP. Pancreas: No suspicious lesion or ductal dilatation. [...] nodes: No enlarged lymph nodes. Blood vessels: Multiple vascular coils in the epigastric region. There are varicose veins in the left upper quadrant and epigastric region. Mild vascular calcifications but no aneurysm. No evidence of venous thrombosis. Abdominal and pelvic wall soft tissues: There is asymmetric enlargement of the right gluteus teresita muscle with a peripherally enhancing intramuscular collection extending to the subcutaneous tissues measuring 5.8 x 2.3 x 4.2 cm in metallic structures along its medial aspect (image 169 of series 606). It measured up to 3.4 cm previously. Fat-containing small umbilical and bilateral inguinal hernias. Bones: Subacute or chronic nondisplaced fracture of the left medial clavicle. There are numerous subacute or chronic appearing bilateral rib fractures and a fracture in the left scapula. Subacute left transverse process fractures of of T3-T9. Comminuted fracture of the right femur with a femoral eduardo and tension screw in place. IMPRESSION: 1. Fluid collection in the right gluteus maximum muscle with subcutaneous extension has increased in size since the prior, raising the concern for superimposed infection to pre-existing hematoma. 2. Cirrhotic liver with TIPS in place and splenomegaly. A 2.3 cm hypodense liver lesion was not seen on prior CT, which may be due to differences in contrast timing. Follow-up with nonemergent MRI isrecommended. 3. Several subacute or chronic appearing fractures as detailed above. WSN: [id number] Ordering Physician: Nicole Guerrero Dictated By: Dominic Martinez MD Dictated Date/Time: 07/14/22 6:20 pm Reviewed By: Dominic Martinez MD Signed By: Dominic Martinez MD Signed Date/Time: 07/14/22 6:20 pm Transcribed By: MIRNA Transcribed Date/Time: 07/14/22 6:17 pm Patient Care team information Care Team Personnel Name: Alexandra Colmenares RN Position: [facility] ED RN W/OE and Tasks Member Role: Primary Care Nurse Name: Garima Manzano RN Position: [facility] RN Member Role: Primary Care Nurse Name: Malgorzata Marinelli RN Position: [facility] RN Member Role: Primary Care Nurse Name: Joyce Roach RN Position: [facility] RN Member Role: Primary Care Nurse Name: Mary Suazo RN Position: [facility] RN Member Role: Primary Care Nurse Name: Danyel Davis RN Position: [facility] RN Member Role: Primary Care Nurse Name: Yenny Bernstein Position: [facility] RN Member Role: Primary Care Nurse Name: Andres Pressley RN Position: [facility] RN Member Role: Primary Care Nurse Name: Jany Baig DO Position: [facility] Primary Care Physician Member Role: PCP Address: Address: [address] [place] [address] [facility] [place] [address]- Name: Neida Ballard RN Position: S RN Member Role: Primary Care Nurse Name: Kaye Payne RN Position: S RN Member Role: Primary Care Nurse Name: Garima Hutchinson Position: S RN Member Role: Primary Care Nurse Name: Malgorzata Austin Position: S RN Member Role: Primary Care Nurse Name: Torrie Hernandez RN Position: [facility] OB RN Member Role: Primary Care Nurse Name: Gretchen Knutson RN Position: [facility] SN RN Member Role: Primary Care Nurse Name: Aislinn Mckee RN Position: [facility] RN Member Role: Primary Care Nurse Name: Ashley Mcelroy Position: [facility] RN Member Role: Primary Care Nurse Name: Cody Garcia Position: [facility] Associate Professional Member Role: Lifetime Consulting Provider Address: Address: [address] [place] [address] Name: Ge Covarrubias RN Position: [facility] RN Member Role: Primary Care Nurse Name: Orin Elmore RN Position: [facility] ED RN W/OE and Tasks Member Role: Primary Care Nurse Name: Allegra Liu RN Position: [facility] PCO RN Member Role: Primary Care Nurse Name: Shayan Pandya MD Position: [facility] Renal MD Member Role: Lifetime Consulting Physician Address: Address: [address] [place] [address] [address] [facility] [place] [address]- Name: Darlene Rodrigez RN Position: [facility] RN Member Role: Primary Care Nurse Name: Kwan Mills RN Position: [facility] RN Member Role: Primary Care Nurse Name: Dolores Can RN Position: [facility] RN Member Role: Primary Care Nurse Name: Kim Rendon RN Position: [facility] RN Member Role: Primary Care Nurse Name: Monica Rowell RN Position: [facility] RN Member Role: Primary Care Nurse Name: Nicole Guerrero DO Position: [facility] Resident Member Role: ED Resident Address: Address: [address] [place] [address]- Name: Toni Curiel RN Position: [facility] ED RN W/OE and Tasks Member Role: Patient Care Provider Name: Elsie Garcia DO Position: [facility] Resident Member Role: ED Attending Physician Address: Address: [address] [place] [address]- Care Team Related Persons Name: MARLEN CABEZAS Address: home [address] [place] [address] Name: MARLEN CABEZAS Address: home [address] [place] [address] Name: NICK CABEZAS Name: GEMA CABEZAS Address: home [address] [place] [address]
--- OUTSIDE RECORDS SUMMARY | 2023-12-15 21:03 | XMS_ITS | Continuity of Care Document ---
Author Organization [facility] Address [address] [place] [address]- Care Team Providers Care Forge Helper Name Role Phone Jany Baig DO Primary Care Physician Encounter [facility] Date(s): 10/28/21 - 11/27/21 [facility] [address] [place] [address]- Allergies, Adverse Reactions, Alerts Substance Reaction Severity [...] (oldterm) 08/02/12 Give n 1Result Comment: [04/29/2017] [id number] 2Admin Note: FLUARIX 3Admin Note: 3 RDINJ 4Admin Note: #2 Medications amLODIPine 5 mg oral tablet 5 mg, 1, tablet, By Mouth, Daily, # 30 tablet, Refills 5, Tot. Refills 5, Maintenance, 10/21/21 10:15:00 EDT, Route to Pharmacy Electronically, [facility], Partial fill upon patient request if the prescription is for a schedule II opioid drug.... Start Date: 10/21/21 Status: Ordered Co Q-10 100 mg oral capsule 1 capsule, By Mouth, 4 times a day, # 120 capsule, 6 Refills, [facility], 174, cm, 02/27/2115:17:00 EDT, Height, 81, kg, 02/27/21 14:06:00 EDT, Dry Weight Start Date: 07/08/21 Status: Ordered fluticasone 50 mcg/inh nasal spray See Instructions, USE 1 SPRAY INTO EACH NOSTRIL TWICE A DAY, # 16 Gm, 5 Refills, [facility], 30, USE 1 SPRAY INTO EACH NOSTRIL TWICE A DAY, 174, cm, 07/14/21 8:16:00 EST, Height, 81, kg, 02/27/21 14:06:00 EDT, Dry Weight Start Date: 08/04/21 Status: Ordered folic acid 1 mg oral tablet 1 mg, 1, tablet, By Mouth, Daily, # 90 tablet, Refills 4, Tot. Refills 4, Maintenance, 10/27/21 10:40:00 EDT, Route to Pharmacy Electronically, [facility], Partial fill upon patient request if the prescription is for a schedule II opioid drug.... Start Date: 10/27/21 Stop Date: 01/20/23 Status: Ordered furosemide 40 mg oral tablet See Instructions, TAKE 1 TABLET BY MOUTH TWICE A DAY, # 60 tablet, Refills 5, Instructions Replace Required Details, Route to Pharmacy Electronically, [facility], 170, cm, 11/12/21 10:02:00 EDT, Height, 78, kg, 11/04/21 12:03:00 EDT, Dry Weight Start Date: 11/25/21 Status: Ordered gabapentin 300 mg oral capsule 300 mg, 1, capsule, By Mouth, Daily at bedtime, note dose change, # 90 capsule, Refills 4, Tot. Refills 4, Maintenance, 10/27/21 10:39:00 EDT, Route to Pharmacy Electronically, [facility], Partial fill upon patient request if the prescription... Start Date: 10/27/21 Stop Date: 01/20/23 Status: Ordered hydrOXYzine hydrochloride 25 mg oral tablet 1 TO 2 TABLETS, By Mouth, 3 times a day, PRN NEEDED FOR ANXIETY (VIAL), # 60 tablet, 0 Refills, [facility], 170, cm, 11/12/21 10:02:00 EDT, Height, 78, kg, 11/04/21 12:03:00 EDT, Dry Weight Start Date: 11/26/21 Status: Ordered lactulose 10 gm/15 ml oral syrup See Instructions, TAKE 30ML BY MOUTH THREE TIMES DAILY NEEDED TO ACHEIVE 3-4 BOWL MOVEMENTS PER DAY, # 3,000 mL, 10 Refills, [facility], 30, TAKE 30ML BY MOUTH THREE TIMES DAILY NEEDED TO ACHEIVE 3-4 BOWL MOVEMENTS PER DAY, 174, cm, 02/12... Start Date: 07/02/21 Status: Ordered magnesium oxide 400 mg oral tablet 1 tablet, By Mouth, 2 times a day, # 60 tablet, 1 Refills, [facility], 170, cm, 11/12/21 10:02:00 EDT, Height, 78, kg, 11/04/21 12:03:00 EDT, Dry Weight Start Date: 11/26/21 Status: Ordered Melatonin 3 mg oral tablet 1 tablet, By Mouth, Daily at bedtime, PRN NEEDED FOR INSOMNIA (PACKAGE IN TRAY), # 60 tablet, 5 Refills, Maintenance, 06/02/21 16:17:00 EST, [facility], 28, 1 tablet By [...] 10/22/21 11:42:00 EDT, Route to Pharmacy Electronically, [facility], Partial fill upon patient request if the prescription is... Start Date: 10/22/21 Stop Date: 01/15/23 Status: Ordered Tab-A-Jesse oral tablet 1 tablet, By Mouth, Daily, # 90 tablet, 9 Refills, [facility], 28, TAKE 1 TABLET [...] Replace Required Details, Route to Pharmacy Electronically, [facility], 170,... Start Date: 11/25/21 Status: Ordered Vitamin B1 100 mg oral tablet 1, tablet, By Mouth, Daily, # 90 tablet, Refills 1, Route to Pharmacy Electronically, [facility], 174, cm, 02/27/21 15:17:00 EDT, Height, 81, kg, 02/27/21 14:06:00 EDT, Dry Weight Start Date: 06/16/21 Status: Ordered Xifaxan 550 mg oral tablet 1 tablet, By Mouth, 2 times a day, # 60 tablet, 1 Refills, [facility], 170, cm, 11/05/21 11:11:00 EDT, Height, [...]
--- OUTSIDE RECORDS SUMMARY | 2023-12-15 21:03 | XMS_ITS | Continuity of Care Document ---
Author Organization [facility] Address [address] [place] [id number]- Care Team Providers Care Diamond Powder Technician Name Role Phone Jany Baig DO Primary Care Physician Encounter [facility] Date(s): 11/07/20 - 12/07/20 [facility] [address] [place] [id number]- Attending Physician: Venice Salmon Admitting Physician: Venice [...] n 1Admin Note: #2 2Result Comment: [04/29/2017] [id number] 3Admin Note: FLUARIX 4Admin Note: 3 RDINJ Medications baclofen 10 mg oral tablet 1, tablet, By Mouth, 3 times a day, # 90 tablet, Refills 0, Tot. Refills 0, Maintenance, 11/22/20 16:13:00 EDT, Route to Pharmacy Electronically, [facility], 178, cm, 11/12/20 15:32:00 EDT, Height, 84.9, kg, 08/31/20 1:07:00 EDT, Dry Weight Start Date: 11/22/20 Status: Ordered chantix 1mg tablet 1 tablet, By Mouth, 2 times a day, # 56 tablet, 0 Refills, Acute, 11/22/20 16:13:00 EDT, [facility], 178, cm, 11/12/20 15:32:00 EDT, Height, 84.9, kg, 08/31/20 1:07:00 EDT, Dry Weight Start Date: 11/22/20 Status: Ordered Co Q-10 100 mg oral capsule See Instructions, TAKE 1 CAPSULE BY MOUTH FOUR TIMES DAILY, # 120 capsule, 7 Refills, Maintenance, [facility], 178, cm, 10/22/20 13:17:00 EDT, Height, 84.9, kg, 08/31/20 1:07:00 EDT, Dry Weight Start Date: 11/01/20 Status: Ordered Co Q-10 100 mg oral capsule 1 capsule, By Mouth, 4 times a day, # 120 capsule, 11 Refills, Maintenance, 11/21/19 10:36:00 EDT, [facility]/pharmacy #[id number], 175, cm, 08/24/19 14:14:00 EDT, Height, 81.2, kg, 02/04/19 1:40:00 EDT, Dry Weight Start Date: 11/21/19 Stop Date: 11/15/20 Status: Ordered fluticasone 50 mcg/inh nasal spray See Instructions, SPRAY 1 SPRAY INTO EACH NOSTRIL TWICE A DAY, # 16 Gm, 5 Refills, 07/09/20 11:38:00 EST, [facility], 30, SPRAY 1 SPRAY INTO EACH NOSTRIL TWICE A DAY, 175, cm, 04/02/20 0:35:00 EDT, Height, 100, kg, 04/02/20 0:35:00 EDT, Dry We... Start Date: 07/09/20 Status: Ordered gabapentin 600 mg oral tablet 1 tablet, By Mouth, 4 times a day, # 120 tablet, 0 Refills, Maintenance, 11/22/20 16:13:00 EDT, [facility], 178, cm, 11/12/20 15:32:00 EDT, Height, 84.9, kg, 08/31/20 1:07:00 EDT, Dry Weight Start Date: 11/22/20 Status: Ordered hydrOXYzine hydrochloride 25 mg oral tablet 1 TO 2 TABLETS, By Mouth, 3 times a day, PRN NEEDED FOR ANXIETY (VIAL), # 60 tablet, 3 Refills, Maintenance, 10/07/20 16:49:00 EDT, [facility], 178, cm, 08/31/20 11:25:00 EDT, Height, 84.9, kg, 08/31/20 1:07:00 EDT, Dry Weight Start Date: 10/07/20 Status: Ordered Keppra 500 mg oral tablet 1 tablet = 500 mg, By Mouth, 2 times a day, # 14 tablet, 0 Refills, Maintenance, 11/01/20 11:59:00 EDT, Tablet, [facility], Partial fill upon patient request if the prescription is for a schedule II opioid drug., 178, cm, 10/22/20 13:17:... Start Date: 11/01/20 Stop Date: 11/08/20 Status: Ordered melatonin 3 mg oral tablet 1 tablet = 3 mg, By Mouth, Daily at bedtime, PRN for insomnia, # 60 tablet, 4 Refills, Maintenance,07/18/20 17:30:00 EST, Tablet, [facility], 175, cm, 04/02/20 0:35:00 EDT, [...] Maintenance, 10/06/19 15:57:00 EDT, Tablet, [facility], 175, cm, 08/24/19 14:14:00 EDT,Height, 81.2, kg, 02/04/19 1:40:00 EDT, Dry Weight Start Date: 10/06/19 Status: Ordered sertraline 50 mg oral tablet 1 tablet, By Mouth, Daily, TAKE ALONG WITH A 100MG TABLET to equal 150mg daily, # 90 tablet, 1 Refills, Maintenance, 10/06/19 15:57:00 EDT, [facility], 175, cm, 08/24/19 14:14:00 EDT, Height,81.2, kg, 02/04/19 1:40:00 EDT, Dry Weight Start Date: 10/06/19 Status: Ordered sildenafil 50 mg oral tablet 1 tablet = 50 mg, By Mouth, Daily, PRN erectile dysfunction, 1 hour before sexual activity, # 6 tablet, 5 Refills, Maintenance, 03/11/20 14:37:00 EDT, Tablet, [facility]/pharmacy #[id number], 175, cm, 08/24/19 14:14:00 EDT, Height, 81.2, kg, 02/04/19 1:40:00 EDT,... Start Date: 03/11/20 Status: Ordered Tab-A-Jesse oral tablet See Instructions, TAKE 1 TABLET BY MOUTH ONCE A DAY, # 30 tablet, 10 Refills, Maintenance, [facility], 28, TAKE [...] 0 Refills, Maintenance, 10/22/20 17:52:00 EDT, Tablet, [facility]/pharmacy #[id number], Partial fill upon patient [...] Details, Route to Pharmacy Electronically, [facility], 178, cm, 10/22/20... Start Date: 11/01/20 Status: Ordered Vitamin B1 100 mg oral tablet 1, tablet, By Mouth, Daily, # 90 tablet, Refills 2, Tot. Refills 0, Acute, 09/05/20 17:32:00 EDT, Route to Pharmacy Electronically, [facility], 178, cm, 08/31/20 11:25:00 EDT, Height, 84.9, kg, 08/31/20 1:07:00 EDT, Dry Weight Start Date: 09/05/20 Status: Ordered Xifaxan 550 mg oral tablet 1 tablet, By Mouth, 2 times a day, # 60 tablet, 0 Refills, Maintenance, 04/16/20 14:45:00 EST, [facility]/pharmacy #[id number], 175, cm, 04/02/20 0:35:00 [...]
--- OUTSIDE RECORDS SUMMARY | 2023-12-15 21:03 | XMS_ITS | Continuity of Care Document ---
Author Organization [facility] Address [address] [place] [address]- Care Team Providers Care Safety Relief Valve Technician Name Role Phone Jany Baig DO Primary Care Physician [facility] Date[facility]s): 07/02/23 - 08/01/23 [facility] [address] [place], [place] [address] Allergies, Adverse Reactions, Alerts Substance Reaction [...] Give n 1Result Comment: [facility]: [id number] 2Result Comment: [04/29/2017] [id number] 3Admin Note: FLUARIX 4Admin Note: 3 RDINJ 5Admin Note: #2 Medications acamprosate 333 mg oral delayed release tablet 2 tablet = 666 mg, By Mouth, 3 times a day, # 180 tablet, 1 Refills, Maintenance, 07/28/23 11:04:00EST, EC Tablet, [facility], Partial fill upon patient request [...] tablet, 2 Refills, Maintenance, 07/28/23 11:06:00 EST, [facility], 175, cm, 07/28/23 9:11:00 EST, Height, [...] 07/28/23 11:10:00 EST, Route to Pharmacy Electronically, [facility], [...] 08/05/23 19:16:00 EST, 07/29/23 19:16:00 EST, Tablet, [facility], Partial fill upon patient request if [...] Gm, 12 Refills, Maintenance, 07/28/23 11:06:00 EST, [facility], 28, APPLY TOPICALLY TO AFFECTED AREA(S) [...] 08/05/23 19:21:00 EST, 07/29/23 19:21:00 EST, Capsule, [facility], Partial fill upon patient requestif the [...] Gm, 1 Refills, Maintenance, 07/28/23 12:07:00 EST, [facility], 30, USE 1 SPRAY(S) INTO EACH [...] 07/28/23 12:08:00 EST, Route to Pharmacy Electronically, [facility], 175, cm, 07/28/23 9:11:00 EST, Height, 61.3, kg, 07/12/23 23:27:00 EST, Dry Weight Start Date: 07/28/23 Status: Ordered furosemide 20 mg oral tablet 20 mg, 1, tablet, By Mouth, Every other day, # 30 tablet, Refills 1, Tot. Refills 1, Maintenance, 07/28/23 12:08:00 EST, Route to Pharmacy Electronically, [facility], Partial fill upon patient request if the prescription is for a schedule II... Start Date: 07/28/23 Status: Ordered gabapentin 300 mg oral capsule 300 mg, 1, capsule, By Mouth, Daily at bedtime, note dose/frequency change, # 30 capsule, Refills 1, Tot. Refills 1, Maintenance, 07/28/23 12:09:00 EST, Route to Pharmacy Electronically, [facility], 175, cm, 07/28/23 9:11:00 EST, Height, [...] tablet, 3 Refills, Maintenance, 07/28/23 12:10:00 EST, [facility], 175, cm, 07/28/23 9:11:00 EST, Height, 61.3, kg,07/12/23 23:27:00 EST, Dry Weight Start Date: 07/28/23 Status: Ordered lactulose 10 gm/15 ml oral syrup 30 mL = 20 Gm, By Mouth, 3 times a day, for 30 days, # 2,700 mL, 2 Refills, Acute 10/26/23 12:13:00EDT, 07/28/23 12:13:00 EST, Syrup, [facility], Partial fill upon patient request if [...] 60 tablet, 11 Refills, Maintenance,07/28/23 12:09:00 EST, [facility], 175, cm, 07/28/23 9:11:00 EST, Height, [...] tablet, 5 Refills, Maintenance, 07/28/23 12:09:00 EST, [facility], 60, 1 tablet By Mouth Daily [...] 07/28/23 12:11:00 EST, Route to Pharmacy Electronically, [facility], 175, cm, 07/28/23 9:11:00EST, Height, 61.3, [...] 07/28/23 12:12:00 EST, Route to Pharmacy Electronically, [facility], 175, cm, 07/28/23 9:11:00 EST, Height, [...] 07/28/23 12:12:00 EST, Route to Pharmacy Electronically, [facility], 175, cm, 07/28/23 9:11:00 EST, Height, [...] 07/28/23 12:12:00 EST, Route to Pharmacy Electronically, [facility], [...] 07/28/23 12:11:00 EST, Route to Pharmacy Electronically, [facility], 175, cm, 07/28/23 9:11:00 EST, Height, [...] each, 1 Refills, Maintenance, 07/28/23 14:33:00 EST, [facility], 175, cm, 07/28/23 9:11:00 EST, Height, [...] Team Personnel Name: Shira Galindo RN Position: [facility] RN Member Role: Primary Care Nurse Name: Lisa Nunez RN Position: S RN Member Role: Primary Care Nurse Name: Alexandra Colmenares RN Position: [facility] [...] Care Member Role: PCP Address: Address: [address] [place] [address] Adult & Pediatric Medicine [place], [place] [address] Name: Kaye Payne RN Position: [...] Role: Lifetime Consulting Provider Address: Address: [address] [place] [address] Name: Paige Nascimento RN Position: [facility] [...] Role: Lifetime Consulting Physician Address: Address: [address] [place] [address] [address] [facility], [address] Name: Kimberley Pittman RN Position: [facility] [...] Related Persons Name: MARLEN CABEZAS Address: home [address] [place] [address] Name: RAULITO MARLEN Address: home [address] [place] [address] Name: NICK CABEZAS Name: GEMA CABEZAS Address: home [address] [place] [address] Name: ELTON CHENG Address: home [address] [place] [address]
--- OUTSIDE RECORDS SUMMARY | 2023-12-15 21:03 | XMS_ITS | Continuity of Care Document ---
Author Organization [facility] Address [address] [place] [address]- Care Team Providers Care Catering Sales Manager Name Role Phone Jany Baig DO Primary Care Physician ( [phone] [facility]counter [facility] Date(s): 07/23/22 - 08/22/22 [facility] [address] [place] [address]- Allergies, Adverse Reactions, Alerts Substance Reaction Severity [...] 1Result Comment: [facility]: [id number] 2Result Comment: [04/29/2017] [id number] 3Admin Note: FLUARIX 4Admin Note: 3 RDINJ 5Admin Note: #2 Medications acetaminophen 500 mg oral tablet 1 tablet, By Mouth, 4 times a day, PRN NEEDED FOR PAIN, MAX 4, PER DAY (VIAL., # 50 tablet, 11 Refills, Maintenance, 03/13/22 8:37:00 EDT, [facility], 175, cm, 01/06/22 10:34:00 EDT, Height, 78.3, kg, 12/26/21 19:05:00 EDT, Dry Weight Start Date: 03/13/22 Status: Ordered amLODIPine 5 mg oral tablet See Instructions, TAKE 1 TABLET BY MOUTH ONCE A DAY^1R1, # 30 tablet, 5 Refills, Maintenance, 05/13/22 16:24:00 EST, [facility], 175, cm, 04/09/22 15:34:00 EDT, Height, 78.3, kg, 12/26/21 19:05:00 EDT, Dry Weight Start Date: 05/13/22 Status: Ordered baclofen 10 mg oral tablet See Instructions, TAKE 1 TABLET BY MOUTH THREE TIMES DAILY, # 90 tablet, Refills 0, Maintenance, 08/07/22 12:26:00 EST, Instructions Replace Required Details, Route to Pharmacy Electronically, [facility], 176, cm, 08/07/22 11:37:00 EST, Height... Start Date: 08/07/22 Status: Ordered cephalexin monohydrate 500 mg oral capsule 1 capsule = 500 mg, By Mouth, 4 times a day, for 10 days, # 40 capsule, 0 Refills, Acute 08/24/22 13:49:00 EDT, 08/14/22 13:49:00 EST, Capsule, [facility]/pharmacy #[id number], Partial fill upon patient request if the prescription is for a schedule II opioid drug.... Start Date: 08/14/22 Stop Date: 08/24/22 Status: Ordered Co Q-10 100 mg oral capsule See Instructions, TAKE 1 CAPSULE BY MOUTH FOUR TIMES DAILY, # 120 capsule, 6 Refills, Maintenance, 08/07/22 12:13:00 EST, [facility], 176, cm, 08/07/22 11:37:00 EST, Height, [...] 10:40:00 EDT, [facility] Pharm[facility], [facility] [...] Replace Required Details, Route to Pharmacy Electronically, [facility], 176, cm, 08/07/22 11:37:00 EST, Height, 7... Start Date: 08/07/22 Status: Ordered furosemide 20 mg oral tablet 1, tablet, By Mouth, Daily, R1., # 30 tablet, Refills 5, Tot. Refills 5, Maintenance, 08/10/22 16:49:00 EST, Route to Pharmacy Electronically, [facility]/pharmacy #[id number], 176, cm, 08/07/22 11:37:00 EST, Height, 79.8, kg, 07/31/22 22:40:00 EST, Dry Weight Start Date: 08/10/22 Status: Ordered gabapentin 300 mg oral capsule 2, capsule, By Mouth, Daily at bedtime, # 180 capsule, Refills 4, Maintenance, 08/10/22 16:53:00 EST, Route to Pharmacy Electronically, [id number], 176, cm, 08/07/22 11:37:00 EST, Height, 79.8, kg, 07/31/22 22:40:00 EST, Dry Weight Start Date: 08/10/22 Stop Date: 11/08/22 Status: Ordered hydrOXYzine hydrochloride 25 mg oral tablet 1 TO 2 TABLETS, By Mouth, Daily at bedtime, PRN NEEDED FOR ANXIETY (VIAL), # 60 tablet, 11 Refills, Maintenance, 03/13/22 8:38:00 EDT, [facility], 175, cm, 01/06/22 10:34:00 EDT, Height, 78.3, kg, 12/26/21 19:05:00 EDT, Dry Weight Start Date: 03/13/22 Status: Ordered lactulose 10 gm/15 ml oral syrup See Instructions, TAKE 30ML BY MOUTH THREE TIMES DAILY NEEDED TO ACHEIVE 3-4 BOWL MOVEMENTS PER DAY, # 3,000 mL, 10 Refills, [facility], 30, TAKE 30ML BY MOUTH THREE TIMES DAILY NEEDED TO ACHEIVE 3-4 BOWL MOVEMENTS PER DAY, 174, cm, 02/12... Start Date: 07/02/21 Status: Ordered Lidoderm 5% film 1 patch, Topically, Daily, remove patches after 12 hours NSAIDS contraindicated High dose tylenol contraindicated remove patches after 12 hours Rib fracture, # 30 patch, 5 Refills, Maintenance, 08/07/22 12:09:00 EST, [facility]/pharmacy #[id number], Partial f... Start Date: 08/07/22 Status: Ordered magnesium oxide 400 mg oral tablet 1 tablet, By Mouth, 2 times a day, # 60 tablet, 11 Refills, Maintenance, 03/13/22 8:37:00 EDT, [facility], 175, cm, 01/06/22 10:34:00 EDT, Height, 78.3, kg, 12/26/21 19:05:00 EDT, Dry Weight Start Date: 03/13/22 Status: Ordered Melatonin 3 mg oral tablet 1 tablet, By Mouth, Daily at bedtime, PRN NEEDED FOR INSOMNIA (PACKAGE IN TRAY)^1R4, # 60 tablet, 5 Refills, Maintenance, 06/12/22 18:11:00 EST, [facility], 60, TAKE 1 TABLET [...] 08/07/22 12:14:00 EST, Route to Pharmacy Electronically, [facility]/pharmacy #[id number], Partial fill upon patient requestif the prescription is for a schedule II opioid remedios... Start Date: 08/07/22 Stop Date: 02/03/23 Status: Ordered Potassium Chloride (Eqv-K-Tab) 20 mEq oral tablet, extended release 2 tablet, By Mouth, Daily, # 180 tablet, 1 Refills, Maintenance, 05/13/22 9:48:00 EST, [facility], 175, cm, 04/09/22 15:34:00 EDT, Height, 78.3, kg, 12/26/21 19:05:00 EDT, Dry Weight Start Date: 05/13/22 Stop Date: 11/09/22 Status: Ordered pyridoxine 50 mg oral tablet 50 mg, 1, tablet, By Mouth, Daily, for 90 days, # 90 tablet, Refills 4, Tot. Refills 4, Acute 01/15/23 11:42:00 EDT, 10/22/21 11:42:00 EDT, Route to Pharmacy Electronically, [facility], Partial fill upon patient request if [...] 90 tablet, 9 Refills, 08/07/22 12:27:00 EST, [facility]/pharmacy #[id number], 28, 1tablet By Mouth Daily, 176, cm, 08/07/22 11:37:00 EST, Height, 79.8, kg, 07/31/22 22:40:00 EST, DryWeight Start Date: 08/07/22 Status: Ordered tranexamic acid 650 mg oral tablet 1 tablet = 650 mg, By Mouth, Daily, # 19 tablet, 0 Refills, Maintenance, 08/01/22 16:17:00 EST, Tablet, [facility]/pharmacy #[id number], Partial fill upon patient request if the prescription is for a schedule II opioid drug., 176, cm, 08/01/22 15:52:00 EST, Height... Start Date: 08/01/22 Stop Date: 08/20/22 Status: Ordered traZODone 50 mg oral tablet 2 TO 3 TABLETS, By Mouth, Daily at bedtime, #28 VIAL)^2R4., # 90 tablet, Refills 5, Maintenance, 06/12/22 18:11:00 EST, Route to Pharmacy Electronically, [facility], 179, cm, 06/08/22 7:37:00EST, Height, 84, kg, 06/01/22 12:27:00 EST, Dry Weight Start Date: 06/12/22 Status: Ordered Vitamin B1 100 mg oral tablet 1, tablet, By Mouth, Daily, # 90 tablet, Refills 3, Maintenance, 03/13/22 8:37:00 EDT, Route to Pharmacy Electronically, [facility], 175, cm, 01/06/22 10:34:00 EDT, Height, 78.3, kg, 12/26/2218:05:00 EDT, Dry Weight Start Date: 03/13/22 Status: Ordered Xifaxan 550 mg oral tablet 1 tablet, By Mouth, 2 times a day, ^1R1,1R4., # 60 tablet, 1 Refills, Maintenance, 06/12/22 18:10:00 EST, [facility], 179, cm, 06/08/22 7:37:00 EST, Height, [...] RN Position: [facility] ED RN W/OE and Tasks Member Role: Primary Care Nurse Name: Garima Manzano RN Position: [facility] RN Member Role: Primary Care Nurse Name: Malgorzata Marinelli RN Position: [facility] RN Member Role: Primary Care Nurse Name: Joyce Roach RN Position: [facility] RN Member Role: Primary Care Nurse Name: Mary Suazo RN Position: [facility] RN Member Role: Primary Care Nurse Name: Andres Pressley RN Position: [facility] RN Member Role: Primary Care Nurse Name: Jany Baig DO Position: [facility] Primary Care Physician Member Role: PCP Address: Address: [address] [place] [address] Adult [facility] Medicine [address] Name: Neida Ballard RN Position: [facility] RN Member Role: Primary Care Nurse Name: Kaye Payne RN Position: [facility] RN Member Role: Primary Care Nurse Name: Garima Hutchinson Position: [facility] RN Member Role: Primary Care Nurse Name: Malgozrata Austin Position: [facility] RN Member Role: Primary Care Nurse Name: Torrie Hernandez RN Position: [facility] OB RN Member Role: Primary Care Nurse Name: Gretchen Knutson RN Position: [facility] SN RN Member Role: Primary Care Nurse Name: Aislinn Mckee RN Position: [facility] RN Member Role: Primary Care Nurse Name: Ashley Mcelroy Position: [facility] RN Member Role: Primary Care Nurse Name: Cody Garcia Position: [facility] Associate Professional Member Role: Lifetime Consulting Provider Address: Address: [address] [place] [address]- Name: Ge Covarrubias RN Position: [facility] RN Member Role: Primary Care Nurse Name: Orin Elmore RN Position: [facility] ED RN W/OE and Tasks Member Role: Primary Care Nurse Name: Allegra Liu RN Position: [facility] PCO RN Member Role: Primary Care Nurse Name: Shayan Pandya MD Position: [facility] Renal MD Member Role: Lifetime Consulting Physician Address: Address: [address] [place] [address] [facility] [place] [address]- Name: Darlene Rodrigez RN Position: [facility] RN Member Role: Primary Care Nurse Name: Kwan Mills RN Position: [facility] RN Member Role: Primary Care Nurse Name: Dolores Can RN Position: [facility] RN Member Role: Primary Care Nurse Name: Kim Rendon RN Position: [facility] RN Member Role: Primary Care Nurse Name: Monica Rowell RN Position: [facility] RN Member Role: Primary Care Nurse Care Team Related Persons Name: MARLEN CABEZAS Address: home [address] [place] [address] Name: MARLEN CABEZAS Address: home [address] [place] [address] Name: NICK CABEZAS Name: GEMA CBAEZAS Address: home [address] [place] [address]
--- OUTSIDE RECORDS SUMMARY | 2023-12-15 21:03 | XMS_ITS | Continuity of Care Document ---
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 Washer Engineer Name Role Phone Jany Baig DO Primary Care Physician [place] [facility] [place] 07/06[place]23 - 08/06/23 [facility] [address] [place], [place] [address] Attending Physician: Heron Carranza MD Allergies, Adverse [...] 1Result Comment: [facility]: [id number] 2Result Comment: [04/29/2017] [id number] 3Admin Note: FLUARIX 4Admin Note: 3 RDINJ 5Admin Note: #2 Medications acamprosate 333 mg oral delayed release tablet 2 tablet = 666 mg, By Mouth, 3 times a day, # 180 tablet, 1 Refills, Maintenance, 07/28/23 11:04:00EST, EC Tablet, [facility], Partial fill upon patient request if [...] tablet, 2 Refills, Maintenance, 07/28/23 11:06:00 EST, [facility], 175, cm, 07/28/23 9:11:00 EST, Height, 61.3, kg, 07/12/23 23:27:00 EST, Dry Weight Start Date: 07/28/23 Status: Ordered amLODIPine 5 mg oral tablet 1 tablet, By Mouth, Daily, ^1R1., # 30 tablet, 2 Refills, Maintenance, 06/02/23 8:00:00 EST, [facility], 175, cm, 03/22/23 6:50:00 EDT, [...] 07/28/23 11:10:00 EST, Route to Pharmacy Electronically, [facility], Partial fill upon patient request if [...] Gm, 12 Refills, Maintenance, 07/28/23 11:06:00 EST, [facility], 28, APPLY TOPICALLY TO AFFECTED AREA(S) [...] Gm, 1 Refills, Maintenance, 07/28/23 12:07:00 EST, [facility], 30, USE 1 SPRAY(S) INTO EACH [...] 07/28/23 12:09:00 EST, Route to Pharmacy Electronically, [facility], 175, cm, 07/28/23 9:11:00 EST, Height, [...] tablet, 3 Refills, Maintenance, 07/28/23 12:10:00 EST, [facility], 175, cm, 07/28/23 9:11:00 EST, Height, 61.3, kg,07/12/23 23:27:00 EST, Dry Weight Start Date: 07/28/23 Status: Ordered lactulose 10 gm/15 ml oral syrup 30 mL = 20 Gm, By Mouth, 3 times a day, for 30 days, # 2,700 mL, 2 Refills, Acute 10/26/23 12:13:00EDT, 07/28/23 12:13:00 EST, Syrup, [facility], Partial fill upon patient request if [...] 60 tablet, 11 Refills, Maintenance,07/28/23 12:09:00 EST, [facility], 175, cm, 07/28/23 9:11:00 EST, Height, [...] tablet, 5 Refills, Maintenance, 07/28/23 12:09:00 EST, [facility], 60, 1 tablet By Mouth Daily [...] 07/28/23 12:11:00 EST, Route to Pharmacy Electronically, [facility], 175, cm, 07/28/23 9:11:00EST, Height, 61.3, [...] 07/28/23 12:12:00 EST, Route to Pharmacy Electronically, [facility], 175, cm, 07/28/23 9:11:00 EST, Height, 61.3, kg, 07/12/23 23:27:00 EST, Dry Weight Start Date: 07/28/23 Status: Ordered spironolactone 25 mg oral tablet 1, tablet, By Mouth, Daily, ^1R2., # 30 tablet, Refills 5, Tot. Refills 5, Maintenance, 04/14/23 12:41:00 EDT, Route to Pharmacy Electronically, [facility], 175, cm, 03/22/23 6:50:00 EDT, Height, 77.5, kg, 03/20/23 11:30:00 EDT, Dry Weight Start Date: 04/14/23 Status: Ordered Tab-A-Jesse oral tablet 1 tablet, By Mouth, Daily, R1., # 30 tablet, 5 Refills, Maintenance, 05/06/23 19:16:00 EST, [facility], 30, TAKE 1 [...] 02/26/23 10:11:00 EDT, Route to Pharmacy Electronically, [facility], 175, cm, 12/03/22 11:50:00 EDT, Height,84, kg, 02/12/23 11:30:00 EDT, Dry Weight Start Date: 02/26/23 Status: Ordered traZODone 50 mg oral tablet 2, tablet, By Mouth, Daily at bedtime, ^2R4., # 60 tablet, Refills 5, Tot. Refills 5, Maintenance, 07/28/23 12:12:00 EST, Route to Pharmacy Electronically, [facility], 175, cm, 07/28/23 9:11:00 EST, Height, [...] 02/09/23 23:18:00 EDT, Route to Pharmacy Electronically, [facility], 175, cm, 12/03/22 11:50:00 EDT, Height, 88.9, kg, 10/21/22 20:41:00 EDT, Dry Weight Start Date: 02/09/23 Status: Ordered Vitamin B1 100 mg oral tablet 1, tablet, By Mouth, Daily, # 90 tablet, Refills 3, Tot. Refills 3, Maintenance, 07/28/23 12:12:00 EST, Route to Pharmacy Electronically, [facility], 175, cm, 07/28/23 9:11:00 EST, Height, 61.3, kg, 07/12/23 23:27:00 EST, Dry Weight Start Date: 07/28/23 Status: Ordered Vitamin B6 50 mg oral tablet 1, tablet, By Mouth, Daily, R1., # 90 tablet, Refills 4, Maintenance, 11/16/22 13:39:00 EDT, Route to Pharmacy Electronically, [facility], 175, cm, 11/13/22 10:42:00 EDT, Height, 88.9, kg, 10/21/22 20:41:00 EDT, Dry Weight Start Date: 11/16/22 Status: Ordered Vitamin B6 50 mg oral tablet 1, tablet, By Mouth, Daily, R1., # 90 tablet, Refills 4, Tot. Refills 4, Maintenance, 07/28/23 12:11:00 EST, Route to Pharmacy Electronically, [facility], 175, cm, 07/28/23 9:11:00 EST, Height, [...] each, 1 Refills, Maintenance, 07/28/23 14:33:00 EST, [facility], 175, cm, 07/28/23 9:11:00 EST, Height, [...] Care Nurse Name: Mary Suazo RN Position: [facility] RN Member Role: Primary Care Nurse Name: Lucina Peralta RN Position: [facility] [...] Care Member Role: PCP Address: Address: [address] [place] [address] Adult [place] [address]- Name: Kaye Payne RN [facility] [...] Role: Lifetime Consulting Provider Address: Address: [address] [place] [address]- Name: Piage Nascimento RN Position: [facility] [...] Role: Lifetime Consulting Physician Address: Address: [address] [facility] [address] [facility] [place] [address]- Name: Kimberley Pittman RN [facility]: [facility] [...] Care Nurse Name: Ingrid Verdugo RN Position: [facility] RN Member Role: Primary Care Nurse Name: Monica Rowell RN Position: [facility] RN Member Role: Primary Care Nurse Name: Jimi Fitzpatrick RN Position: [facility] RN Member Role: Primary Care Nurse Care Team Related Persons Name: RAULITO MARLEN Address: [address] [place] [address] Name: MARLEN CABEZAS Address: home [address] [place] [address] Name: NICK CABEZAS Name: GEMA CABEZAS Address: [address] [place] [address] Name: ELTON CHENG Address: home [address] [place] [address]
--- OUTSIDE RECORDS SUMMARY | 2023-12-15 21:03 | XMS_ITS | Continuity of Care Document ---
Author Organization [facility] Address [address] [place] [address]- Care Team Providers Care Associate Store Director Name Role Phone Jany Baig DO Primary Care Physician Encounter [facility] Date(s): 11/17/22 - 12/17/[facility] [address], [place] [address] Allergies, [...] Comment: [facility]: 68975-851-57 2Result Comment: [04/29/2017] [id number] 3Admin Note: FLUARIX 4Admin Note: 3 RDINJ 5Admin Note: #2 Medications acamprosate 333 mg oral delayed release tablet 1 tablet = 333 mg, By Mouth, 3 times a day, # 42 tablet, 4 Refills, Maintenance, 11/05/22 11:31:00 EDT, [facility], [facility], Partial fill upon patient request if the prescription is for a schedule II opioid drug., 175, cm, 11/05/22 10:21:00... Start Date: 11/05/22 Stop Date: 01/14/23 Status: Ordered amLODIPine 5 mg oral tablet 1 tablet, By Mouth, Daily, ^1R1., # 30 tablet, 2 Refills, Maintenance, 10/06/22 4:58:00 EDT, [facility], 176, cm, 09/07/22 8:56:00 EDT, Height, 82.1, kg, 09/07/22 8:59:00 EDT, Dry Weight Start Date: 10/06/22 Status: Ordered baclofen 10 mg oral tablet See Instructions, TAKE 1 TABLET BY MOUTH THREE TIMES DAILY, # 90 tablet, Refills 0, Tot. Refills 0,Maintenance, 12/01/22 16:12:00 EDT, Instructions Replace Required Details, [facility], 175, cm, 11/13/22 10:4... Start Date: 12/01/22 Status: Ordered calcium (as carbonate)-vitamin D 500 mg-400 intl units oral tablet 1 tablet, By Mouth, Daily, ^1R1., # 28 tablet, 0 Refills, Maintenance, 12/01/22 16:12:00 EDT, [facility], 28, 1 tablet [...] Maintenance, 12/03/22 12:13:00 EDT, [facility], 175, cm, 12/03/22 11:50:00 [...] 10/06/22 4:59:00 EDT, Route to Pharmacy Electronically, [facility], 176, cm, 09/07/22 8:56:00 EDT, Height, [...] 09/03/22 14:50:00 EDT, Route to Pharmacy Electronically, [facility], 169, cm, 09/03/22 14:21:00 EDT, Height, 69, kg, 08/16/22 1:04:00 EST, Dry Weight Start Date: 09/03/22 Status: Ordered gabapentin 300 mg oral capsule 300 mg, 1, capsule, By Mouth, Daily at bedtime, note dose/frequency change, # 90 capsule, Refills 4, Tot. Refills 4, Maintenance, 11/05/22 11:05:00 EDT, Route to Pharmacy Electronically, [facility], 175, cm, 11/05/22 10:21:00 EDT, Height, 88.9... Start Date: 11/05/22 Stop Date: 01/29/24 Status: Ordered hydrOXYzine hydrochloride 10 mg oral tablet 2 tablet, By Mouth, 2 times a day, PRN NEEDED FOR ANXIETY (VIAL), # 30 tablet, 3 Refills, Maintenance, 09/24/22 17:01:00 EDT, [facility], 176, cm, 09/07/22 8:56:00 EDT, Height, 82.1, kg, 09/07/22 8:59:00 EDT, Dry Weight Start Date: 09/24/22 Status: Ordered lactulose 10 gm/15 ml oral syrup 15 mL, By Mouth, 2 times a day, # 120 mL, 6 Refills, Maintenance, 09/22/22 12:15:00 EDT, [facility], 4, TAKE 15ML BY MOUTH TWO TIMES A DAY, 176, cm, 09/07/22 8:56:00 EDT, Height, 82.1, kg, 09/07/22 8:59:00 EDT, Dry Weight Start Date: 09/22/22 Status: Ordered Lidoderm 5% film 1 patch, Topically, Daily, remove patches after 12 hours NSAIDS contraindicated High dose tylenol contraindicated remove patches after 12 hours Nueropathy, # 30 patch, 5 Refills, Maintenance, 11/05/22 11:04:00 EDT, [facility], Partial klaudia... Start Date: [...] 09/03/22 14:53:00 EDT, Route to Pharmacy Electronically, [facility], Partial fill upon patient request if [...] 11/05/22 11:31:00 EDT, Route to Pharmacy Electronically, [facility], Partial fill upon patient request if the prescription is for a schedule II opioid drug... Start Date: 11/05/22 Status: Ordered Tab-A-Jesse oral tablet 1 tablet, By Mouth, Daily, # 90 tablet, 1 Refills, 12/01/22 12:59:00 EDT, [facility], 28, 1tablet By Mouth Daily, 175, cm, 11/13/22 10:42:00 EDT, Height, 88.9, kg, 10/21/22 20:41:00 EDT, DryWeight Start Date: 12/01/22 Status: Ordered traZODone 50 mg oral tablet 2 tablets, By Mouth, Daily at bedtime, # 60 each, Refills 5, Tot. Refills 5, Maintenance, 09/03/22 17:13:00 EDT, Route to Pharmacy Electronically, [facility], 169, cm, 09/03/22 14:21:00 EDT, Height, [...] 03/13/22 8:37:00 EDT, Route to Pharmacy Electronically, [facility], 175, cm, 01/06/22 10:34:00 EDT, Height, 78.3, kg, 12/26/2218:05:00 EDT, Dry Weight Start Date: 03/13/22 Status: Ordered Vitamin B6 50 mg oral tablet 1, tablet, By Mouth, Daily, R1., # 90 tablet, Refills 4, Maintenance, 11/16/22 13:39:00 EDT, Route to Pharmacy Electronically, [facility], 175, cm, 11/13/22 10:42:00 EDT, Height, 88.9, kg, 10/21/22 20:41:00 EDT, Dry Weight Start Date: 11/16/22 Status: Ordered Voltaren 1% topical gel 1 application, Topically, 4 times a day, PRN for pain, # 100 Gm, 0 Refills, Maintenance, 12/01/22 16:12:00 EDT, Gel, [facility], Partial fill upon patient request if [...] tablet, 3 Refills, Maintenance, 10/01/22 15:19:00 EDT, [facility], 176, cm, 09/07/22 8:56:00 EDT, Height, [...] Primary Care Member Role: PCP Address: Address: [address] [place] [address] Adult [facility] [place] [address]- Name: Neida Ballard RN [facility] Role: Lifetime Consulting Provider Address: Address: [address] [place] [address]- Name: Ge Covarrubias RN [facility] Role: Lifetime Consulting Physician Address: Address: [address] [place] [address] [address] [facility] [place] [address]- Name: Darlene Rodrigez RN Position: [facility] RN Member Role: Primary Care Nurse Name: Kwan Mills RN Position: S RN Member Role: Primary Care Nurse Name: Dolores Can RN Position: [facility] RN Member Role: Primary Care Nurse Name: Kim Rendon RN Position: [facility] RN Member Role: Primary Care Nurse Name: Monica Rowell RN Position: [facility] RN Member Role: Primary Care Nurse Name: Jimi Fitzpatrick RN Position: [facility] RN Member Role: Primary Care Nurse Care Team Related Persons Name: MARLEN CABEZAS Address: [place] [address] Name: MARLEN CABEZAS Address: [place] [address] Name: NICK CABEZAS Name: GEMA CABEZAS Address: [place] [address]
--- OUTSIDE RECORDS SUMMARY | 2023-12-15 21:03 | XMS_ITS | Continuity of Care Document ---
Author Organization [facility] Address [address] [place] [address]- Care Team Providers Care Vp Celebrity Services Name Role Phone Jany Baig DO Primary Care Physician Encounter [facility] Date(s): 12/26/21 - 12/27/[address] [address]- Encounter Diagnosis Hypokalemia(Final) - 12/27/21 Abnormal laboratory test result(Final) - 12/27/21 Medication reaction(Final) - 12/27/21 Cirrhosis(Final) - 12/27/21 Discharge Disposition: A-D/C Home Attending Physician: Star Bang MD Admitting Physician: Star Bang MD Referring Physician: Not on Staff, Referring [...] (oldterm) 08/02/12 Give n 1Result Comment: [04/29/2017] [id number] 2Admin Note: FLUARIX 3Admin Note: 3 RDINJ 4Admin Note: #2 Medications acetaminophen 500 mg oral tablet See Instructions, PRN for pain, 1 tablet By Mouth up to 4 times a day, MAX 2 Gm per day, # 50 tablet, 1 Refills, Maintenance, 12/26/21 9:17:00 EDT, Tablet, [facility], Partial fill upon patient request if the prescription is for a schedule II... Start Date: 12/26/21 Status: Ordered amLODIPine 5 mg oral tablet 5 mg, 1, tablet, By Mouth, Daily, # 30 tablet, Refills 5, Tot. Refills 5, Maintenance, 10/21/21 10:15:00 EDT, Route to Pharmacy Electronically, [facility], Partial fill upon patient request if the prescription is for a schedule II opioid drug.... Start Date: 10/21/21 Status: Ordered Co Q-10 100 mg oral capsule 1 capsule, By Mouth, 4 times a day, # 120 capsule, 6 Refills, [facility], 174, cm, 02/27/2115:17:00 EDT, Height, 81, kg, 02/27/21 14:06:00 EDT, Dry Weight Start Date: 07/08/21 Status: Ordered fluticasone 50 mcg/inh nasal spray See Instructions, USE 1 SPRAY INTO EACH NOSTRIL TWICE A DAY, # 16 Gm, 5 Refills, [facility], 30, USE 1 SPRAY INTO EACH NOSTRIL TWICE A DAY, 174, cm, 07/14/21 8:16:00 EST, Height, 81, kg, 02/27/21 14:06:00 EDT, Dry Weight Start Date: 08/04/21 Status: Ordered folic acid 1 mg oral tablet 1 mg, 1, tablet, By Mouth, Daily, # 90 tablet, Refills 4, Tot. Refills 4, Maintenance, 10/27/21 10:40:00 EDT, Route to Pharmacy Electronically, [facility], Partial fill upon patient request if the prescription is for a schedule II opioid drug.... Start Date: 10/27/21 Stop Date: 01/20/23 Status: Ordered furosemide 40 mg oral tablet See Instructions, TAKE 1 TABLET BY MOUTH TWICE A DAY, # 60 tablet, Refills 5, Instructions Replace Required Details, Route to Pharmacy Electronically, [facility], 170, cm, 11/12/21 10:02:00 EDT, Height, 78, kg, 11/04/21 12:03:00 EDT, Dry Weight Start Date: 11/25/21 Status: Ordered hydrOXYzine hydrochloride 25 mg oral tablet 1 TO 2 TABLETS, By Mouth, 3 times a day, PRN NEEDED FOR ANXIETY (VIAL), # 60 tablet, 0 Refills, [facility], 170, cm, 11/12/21 10:02:00 EDT, Height, 78, kg, 11/04/21 12:03:00 EDT, Dry Weight Start Date: 12/24/21 Status: Ordered lactulose 10 gm/15 ml oral syrup See Instructions, TAKE 30ML BY MOUTH THREE TIMES DAILY NEEDED TO ACHEIVE 3-4 BOWL MOVEMENTS PER DAY, # 3,000 mL, 10 Refills, [facility], 30, TAKE 30ML BY MOUTH THREE TIMES DAILY NEEDED TO ACHEIVE 3-4 BOWL MOVEMENTS PER DAY, 174, cm, 02/12... Start Date: 07/02/21 Status: Ordered Lidoderm 5% film 1 patch, Topically, Daily, remove patches after 12 hours NSAIDS contraindicated High dose tylenol contraindicated, # 30 patch, 5 Refills, Maintenance, 12/26/21 9:33:00 EDT, [facility], Partial fill upon patient request if the prescription i... Start Date: 12/26/21 Status: Ordered magnesium oxide 400 mg oral tablet 1 tablet, By Mouth, 2 times a day, # 60 tablet, 1 Refills, [facility], 170, cm, 11/12/21 10:02:00 EDT, Height, 78, kg, 11/04/21 12:03:00 EDT, Dry Weight Start Date: 11/26/21 Status: Ordered Melatonin 3 mg oral tablet 1 tablet, By Mouth, Daily at bedtime, PRN NEEDED FOR INSOMNIA (PACKAGE IN TRAY), # 60 tablet, 5 Refills, Maintenance, 06/02/21 16:17:00 EST, [facility], 28, 1 tablet By [...] 0 Refills, Maintenance, 12/27/21 0:19:00 EDT, Liquid, [facility] #[id number], Partial fill upon patient request if the prescription is for a schedule II opioid drug., 175, cm, 12/26/21 19:05:00 EDT, Height, 78.3,... Start Date: 12/27/21 Status: Ordered pyridoxine 50 mg oral tablet 50 mg, 1, tablet, By Mouth, Daily, for 90 days, # 90 tablet, Refills 4, Tot. Refills 4, Acute 01/15/23 11:42:00 EDT, 10/22/21 11:42:00 EDT, Route to Pharmacy Electronically, [facility], Partial fill upon patient request if the prescription is... Start Date: 10/22/21 Stop Date: 01/15/23 Status: Ordered Tab-A-Jesse oral tablet 1 tablet, By Mouth, Daily, # 90 tablet, 9 Refills, [facility], 28, TAKE 1 TABLET [...] Route to Pharmacy Electronically, [facility], 170, cm,... Start Date: 12/26/21 Status: Ordered Vitamin B1 100 mg oral tablet 1, tablet, By Mouth, Daily, # 90 tablet, Refills 0, Route to Pharmacy Electronically, [facility], 170, cm, 11/12/21 10:02:00 EDT, Height, 78, kg, 11/04/21 12:03:00 EDT, Dry Weight Start Date: 12/24/21 Status: Ordered Xifaxan 550 mg oral tablet 1 tablet, By Mouth, 2 times a day, # 60 tablet, 0 Refills, [facility], 170, cm, 11/12/21 10:02:00 [...] Range]: 1 2 3 Height 175 cm (12/26/21 7:05 PM) 175 cm (12/26/21 7:02 PM) Weight 78.3 kg (12/26/21 7:05 PM) 78.3 kg (12/26/21 7:02 PM) Oxygen Saturation [94-100 %] 100 % (12/27/21 12:56 AM) 100 % (12/27/21 12:47 AM) 100 % (12/26/21 10:12 PM) Pulse Rate [55-90 bpm] 94 bpm *H* (12/27/21 12:56 AM) 89 bpm (12/27/21 12:47 AM) 90 bpm (12/26/21 10:12 PM) Body Mass Index [18.5-24.99] 25.57 *H* (12/26/21 7:02 PM) Blood Pressure [90-138/55-84 mm Hg] 135/68mm Hg (12/27/21 12:56 AM) 125/73mm Hg (12/27/21 12:47 AM) 131/71mm Hg (12/26/21 10:12 PM) Respiratory Rate [16-30 br/min] 18 br/min (12/27/21 12:56 AM) 17 br/min (12/27/21 12:47 AM) 18 br/min (12/26/21 10:12 PM) Temperature [96.8-100.4 DegF] 98.1 DegF (12/27/21 12:56 AM) 98.1 DegF (12/27/21 12:47 AM) 98.0 DegF (12/26/21 9:00 PM) Mode of Delivery (Oxygen) Room air (12/27/21 12:56 AM) Room air (12/27/21 12:47 AM) Room air (12/26/21 9:00 PM) Blood pressure sites Arm, right (12/27/21 12:56 AM) Arm, right (12/27/21 12:47 AM) Arm, right (12/26/21 10:12 PM) Temperature Route Oral (12/27/21 12:56 AM) Oral (12/27/21 12:47 AM) Oral (12/26/21 9:00 PM) Dry Weight 78.3 kg (12/26/21 7:05 PM) 78.3 kg (12/26/21 7:02 PM) Weight Obtained Via Standing scale (12/26/21 7:02 PM) Dry Weight Obtained Via Standing scale (12/26/21 7:02 PM) Social History Social History Type Response Smoking Status 10 or more cigarette s (1/2 pack or more)/day in last 30 days entered on: 02/04/19 Sex
--- OUTSIDE RECORDS SUMMARY | 2023-12-15 21:03 | XMS_ITS | Continuity of Care Document ---
Author Organization [facility] Address [address] [place] [address]- Care Team Providers Care Steamboat Inspector Name Role Phone Jany Baig DO Primary Care Physician Encounter [facility] Date(s): 11/15/22 - 12/15/22 [facility] [address] [place], [place] [address] Allergies, Adverse Reactions, Alerts Substance Reaction [...] Give n 1Result Comment: [facility]: [id number] 2Result Comment: [04/29/2017] 12425-806-16 3Admin Note: FLUARIX 4Admin Note: 3 RDINJ 5Admin Note: #2 Medications acamprosate 333 mg oral delayed release tablet 1 tablet = 333 mg, By Mouth, 3 times a day, # 42 tablet, 4 Refills, Maintenance, 11/05/22 11:31:00 EDT, EC Tablet, [facility], Partial fill upon patient request if the prescription is for a schedule II opioid drug., 175, cm, 11/05/22 10:21:00... Start Date: 11/05/22 Stop Date: 01/14/23 Status: Ordered amLODIPine 5 mg oral tablet 1 tablet, By Mouth, Daily, ^1R1., # 30 tablet, 2 Refills, Maintenance, 10/06/22 4:58:00 EDT, [facility], 176, cm, 09/07/22 8:56:00 EDT, Height, 82.1, kg, 09/07/22 8:59:00 EDT, Dry Weight Start Date: 10/06/22 Status: Ordered baclofen 10 mg oral tablet See Instructions, TAKE 1 TABLET BY MOUTH THREE TIMES DAILY, # 90 tablet, Refills 0, Tot. Refills 0,Maintenance, 12/01/22 16:12:00 EDT, Instructions Replace Required Details, [facility], 175, cm, 11/13/22 10:4... Start Date: [...] 10/06/22 4:59:00 EDT, Route to Pharmacy Electronically, [facility], 176, cm, 09/07/22 8:56:00 EDT, Height, [...] 09/03/22 14:50:00 EDT, Route to Pharmacy Electronically, [facility], 169, cm, 09/03/22 14:21:00 EDT, Height, 69, kg, 08/16/22 1:04:00 EST, Dry Weight Start Date: 09/03/22 Status: Ordered gabapentin 300 mg oral capsule 300 mg, 1, capsule, By Mouth, Daily at bedtime, note dose/frequency change, # 90 capsule, Refills 4, Tot. Refills 4, Maintenance, 11/05/22 11:05:00 EDT, Route to Pharmacy Electronically, [facility], 175, cm, 11/05/22 10:21:00 EDT, Height, 88.9... Start Date: 11/05/22 Stop Date: 01/29/24 Status: Ordered hydrOXYzine hydrochloride 10 mg oral tablet 2 tablet, By Mouth, 2 times a day, PRN NEEDED FOR ANXIETY (VIAL), # 30 tablet, 3 Refills, Maintenance, 09/24/22 17:01:00 EDT, [facility], 176, cm, 09/07/22 8:56:00 EDT, Height, 82.1, kg, 09/07/22 8:59:00 EDT, Dry Weight Start Date: 09/24/22 Status: Ordered lactulose 10 gm/15 ml oral syrup 15 mL, By Mouth, 2 times a day, # 120 mL, 6 Refills, Maintenance, 09/22/22 12:15:00 EDT, [facility], 4, TAKE 15ML BY MOUTH TWO TIMES A DAY, 176, cm, 09/07/22 8:56:00 EDT, Height, 82.1, kg, 09/07/22 8:59:00 EDT, Dry Weight Start Date: 09/22/22 Status: Ordered Lidoderm 5% film 1 patch, Topically, Daily, remove patches after 12 hours NSAIDS contraindicated High dose tylenol contraindicated remove patches after 12 hours Nueropathy, # 30 patch, 5 Refills, Maintenance, 11/05/22 11:04:00 EDT, [facility], Partial klaudia... Start Date: 11/05/22 Status: Ordered Melatonin 3 mg oral tablet 1 tablet, By Mouth, Daily at bedtime, PRN NEEDED FOR INSOMNIA (PACKAGE IN TRAY)^1R4, # 60 tablet, 5 Refills, Maintenance, 06/12/22 18:11:00 EST, [facility], 60, TAKE 1 TABLET [...] 09/03/22 14:53:00 EDT, Route to Pharmacy Electronically, [facility], Partial fill upon patient request if [...] 11/05/22 11:31:00 EDT, Route to Pharmacy Electronically, [facility], Partial fill upon patient request if the prescription is for a schedule II opioid drug... Start Date: 11/05/22 Status: Ordered Tab-A-Jesse oral tablet 1 tablet, By Mouth, Daily, # 90 tablet, 1 Refills, 12/01/22 12:59:00 EDT, [facility], 28, 1tablet By Mouth Daily, 175, cm, 11/13/22 10:42:00 EDT, Height, 88.9, kg, 10/21/22 20:41:00 EDT, DryWeight Start Date: 12/01/22 Status: Ordered traZODone 50 mg oral tablet 2 tablets, By Mouth, Daily at bedtime, # 60 each, Refills 5, Tot. Refills 5, Maintenance, 09/03/22 17:13:00 EDT, Route to Pharmacy Electronically, [facility], 169, cm, 09/03/22 14:21:00 EDT, Height, [...] 03/13/22 8:37:00 EDT, Route to Pharmacy Electronically, [facility], 175, cm, 01/06/22 10:34:00 EDT, Height, 78.3, kg, 12/26/2218:05:00 EDT, Dry Weight Start Date: 03/13/22 Status: Ordered Vitamin B6 50 mg oral tablet 1, tablet, By Mouth, Daily, R1., # 90 tablet, Refills 4, Maintenance, 11/16/22 13:39:00 EDT, Route to Pharmacy Electronically, [facility], 175, cm, 11/13/22 10:42:00 EDT, Height, 88.9, kg, 10/21/22 20:41:00 EDT, Dry Weight Start Date: 11/16/22 Status: Ordered Voltaren 1% topical gel 1 application, Topically, 4 times a day, PRN for pain, # 100 Gm, 0 Refills, Maintenance, 12/01/22 16:12:00 EDT, Gel, [facility], Partial fill upon patient request if [...] tablet, 3 Refills, Maintenance, 10/01/22 15:19:00 EDT, [facility], 176, cm, 09/07/22 8:56:00 EDT, Height, [...] Care Member Role: PCP Address: Address: [address] [place] [address] Adult [place] [address]- Name: Neida Ballard RN [facility]: [facility] [...] Role: Lifetime Consulting Provider Address: Address: [address] [place] [address]- Name: Ge Covarrubias RN Position: [facility] RN Member Role: Primary Care Nurse Name: Orin Elmore RN Position: [facility] ED RN W/OE and Tasks Member Role: Primary Care Nurse Name: Allegra Liu RN Position: [facility] AMB Nurse Member Role: Primary Care Nurse Name: Shayan Pandya MD Position: [facility] Renal MD Member Role: Lifetime Consulting Physician Address: Address: [address] [place] [address] [address] [facility] [place] [address]- Name: Darlene Rodrigez RN Position: [facility] [...] Team Related Persons Name: MARLEN CABEZAS Address: [place] [address] Name: MARLEN CABEZAS Address: [place] [address] Name: NICK CABEZAS Name: GEMA CABEZAS Address: [place] [address]
--- OUTSIDE RECORDS SUMMARY | 2023-12-15 21:03 | XMS_ITS | Continuity of Care Document ---
Author Organization [facility] Address [address] [place] [address]- Care Team Providers Care Business Services Coordinator Name Role Phone Jany Baig DO Primary Care Physician Encounter [facility] Date(s): 07/04/20 - 09/21/20 [facility] [address] [place] [address]- Attending Physician: Cristofer Steiner MD Admitting Physician: [...] n 1Admin Note: #2 2Result Comment: [04/29/2017] [id number] 3Admin Note: FLUARIX 4Admin Note: 3 RDINJ [...] 56 tablet, 0 Refills, Acute, 09/05/20 17:32:00EDT, [facility], [...] 11/02/19 9:02:00 EDT, Suspension, [facility]/pharmacy #[id number], 175, cm, 08/24/19 14:14:00 EDT, Height, 81.2, kg, 02/04/19 1:40:00 EDT, Dry Weight Start Date: 11/02/19 Status: Ordered fluticasone 50 mcg/inh nasal spray See Instructions, SPRAY 1 SPRAY INTO EACH NOSTRIL TWICE A DAY, # 16 Gm, 5 Refills, 07/09/20 11:38:00 EST, [facility], 30, SPRAY 1 SPRAY INTO EACH NOSTRIL TWICE A DAY, 175, cm, 04/02/20 0:35:00 EDT, Height, 100, kg, 04/02/20 0:35:00 EDT, Dry We... Start Date: 07/09/20 Status: Ordered gabapentin 600 mg oral tablet 1 tablet, By Mouth, 4 times a day, # 120 tablet, 0 Refills, Maintenance, 09/05/20 17:32:00 EDT, [facility], 178, cm, 08/31/20 11:25:00 EDT, Height, 84.9, kg, 08/31/20 1:07:00 EDT, Dry Weight Start Date: 09/05/20 Status: Ordered hydrOXYzine hydrochloride 25 mg oral tablet 1 TO 2 TABLETS, By Mouth, 3 times a day, PRN NEEDED FOR ANXIETY (VIAL), # 60 tablet, 0 Refills, Acute, 09/05/20 17:32:00 EDT, [facility] [...] EDT, Syrup, [facility], re sent from 10/04/17, 30... Start [...] EST, [facility]/pharmacy #[id number], 8, APPLY TOPICALLY THREE TIMES DAILY [...] Replace Required Details, Route to Pharmacy Electronically, [facility], 178, cm, 08/31/20 11:25:00 EDT, Height, 84.... Start Date: 09/05/20 Status: Ordered Vitamin B1 100 mg oral tablet 1, tablet, By Mouth, Daily, # 90 tablet, Refills 2, Tot. Refills 0, Acute, 09/05/20 17:32:00 EDT, Route to Pharmacy [facility]ically, [facility], 178, cm, 08/31/20 11:25:00 [...]
--- OUTSIDE RECORDS SUMMARY | 2023-12-15 21:03 | XMS_ITS | Continuity of Care Document ---
Author Organization [facility] Address [address] [place] [address]- Care Team Providers Care Publishing Manager Name Role Phone Jany Baig DO Primary Care Physician Encounter [facility] Date(s): 12/19/19 - 12/26/19 [facility] [address] [place] [address]- [facility] Encounter Diagnosis Dry cough(Discharge Diagnosis) - 12/19/19 Attending Physician: Hector Mark MD Allergies, Adverse Reactions, Alerts Substance Reaction [...] n 1Admin Note: #2 2Result Comment: [04/29/2017] [id number] 3Admin Note: FLUARIX 4Admin Note: 3 RDINJ Medications baclofen 10 mg oral tablet 10 mg, 1, tablet, By Mouth, 3 times a day, # 90 tablet, Refills 4, Tot. Refills 4, Maintenance, 10/06/19 16:18:00 EDT, Route to Pharmacy Electronically, [facility], 175, cm, 08/24/19 14:14:00EDT, Height, 81.2, kg, 02/04/19 1:40:00 EDT, Dry We... Start Date: 10/06/19 Stop Date: 03/04/20 Status: Ordered chantix 1mg tablet See Instructions, TAKE 1 TABLET BY MOUTH TWICE A DAY WITH A FULL GLASS OF WATER AND CONTINUE FOR A TOTAL OF 12 WEEKS, # 56 tablet, 0 Refills, Acute, [facility], 175, cm, 08/24/19 14:14:00 EDT, Height, 81.2, kg, 02/04/19 1:40:00 EDT, Dry Weight Start Date: 12/01/19 Status: Ordered chantix 1mg tablet 1 tablet = 1 mg, By Mouth, 2 times a day, with a full glass of water, continue for total of 12 wks,# 56 tablet, 1 Refills, Maintenance, 10/06/19 15:54:00 EDT, Tablet, [facility], 175, cm, 08/24/19 14:14:00 EDT, Height, 81.2, kg, 02/04/19 1:40... Start Date: 10/06/19 Status: Ordered Co Q-10 100 mg oral capsule 1 capsule, By Mouth, 4 times a day, # 120 capsule, 11 Refills, Maintenance, 11/21/19 10:36:00 EDT, [facility]/pharmacy #[id number], 175, cm, 08/24/19 14:14:00 EDT, Height, 81.2, kg, 02/04/19 1:40:00 EDT, Dry Weight Start Date: 11/21/19 Stop Date: 11/15/20 Status: Ordered Engerix-B 20 mcg/mL intramuscular suspension = 20 mcg, Intramuscular, Every 30 days, rpt at 1 and 6 months, # 1 mL, 2 Refills, Maintenance, 11/02/19 9:02:00 EDT, Suspension, [facility]/pharmacy #[id number], 175, cm, 08/24/19 14:14:00 EDT, Height, 81.2, kg, 02/04/19 1:40:00 EDT, Dry Weight Start Date: 11/02/19 Status: Ordered fluticasone 50 mcg/inh nasal spray See Instructions, SPRAY 1 SPRAY INTO EACH NOSTRIL TWICE A DAY, # 16 Gm, 3 Refills, 10/06/19 14:35:00 EDT, [facility], 30, SPRAY 1 SPRAY INTO EACH NOSTRIL TWICE A DAY, 175, cm, 08/24/19 14:14:00 EDT, Height, 81.2, kg, 02/04/19 1:40:00 EDT, Dry... Start Date: 10/06/19 Status: Ordered gabapentin 600 mg oral tablet 1 tablet = 600 mg, By Mouth, 4 times a day, to replace prior script, # 120 tablet, 3 Refills, Maintenance, 10/09/19 11:18:00 EDT, Tablet, [facility], 175, cm, 08/24/19 14:14:00 EDT, Height, 81.2, kg, 02/04/19 1:40:00 EDT, Dry Weight Start Date: 10/09/19 Stop Date: 02/06/20 Status: Ordered hydrOXYzine hydrochloride 25 mg oral tablet 1 TO 2 TABLETS, By Mouth, 3 times a day, PRN NEEDED FOR ANXIETY, # 60 tablet, 2 Refills, Maintenance, 12/01/19 13:15:00 EDT, [facility], 175, cm, 08/24/19 14:14:00 EDT, Height, [...] 11/25/20 16:37:00 EDT, 12/01/19 16:37:00 EDT, Syrup, [facility], re sent from [...] tablet, 4 Refills, Maintenance,10/06/19 16:16:00 EDT, Tablet, [facility], 175, cm, 08/24/19 14:14:00 EDT, Height, 81.2, kg, 02/04/19 1:40:00 EDT, Dry Weight Start Date: 10/06/19 Status: Ordered mupirocin 2% topical ointment See Instructions, APPLY TOPICALLY THREE TIMES DAILY (APPLY A THIN FILM), # 22 Gm, 0 Refills, Acute,[facility], 8, APPLY TOPICALLY THREE TIMES DAILY (APPLY A THIN FILM), 175, cm, 08/24/19 14:14:00 EDT, Height, 81.2, kg, 02/04/19 1:40:00 EDT, D... Start Date: 10/30/19 Status: Ordered mupirocin 2% topical ointment See Instructions, APPLY TOPICALLY THREE TIMES DAILY (APPLY A THIN FILM), # 22 Gm, 0 Refills, Acute,[facility], 8, APPLY TOPICALLY THREE TIMES DAILY (APPLY A THIN FILM), 175, cm, 08/24/19 14:14:00 EDT, Height, 81.2, kg, 02/04/19 1:40:00 EDT, D... Start Date: 12/01/19 Status: Ordered naltrexone 50 mg oral tablet [...] 1 Refills, Maintenance, 10/06/19 15:57:00 EDT, Tablet, [facility], 175, cm, 08/24/19 14:14:00 EDT,Height, 81.2, kg, 02/04/19 1:40:00 EDT, Dry Weight Start Date: 10/06/19 Status: Ordered sertraline 50 mg oral tablet 1 tablet, By Mouth, Daily, TAKE ALONG WITH A 100MG TABLET to equal 150mg daily, # 90 tablet, 1 Refills, Maintenance, 10/06/19 15:57:00 EDT, [facility], 175, cm, 08/24/19 14:14:00 EDT, Height,81.2, kg, 02/04/19 1:40:00 EDT, Dry Weight Start Date: 10/06/19 Status: Ordered Tab-A-Jesse oral tablet 1 tablet, By Mouth, Daily, # 30 tablet, 11 Refills, Maintenance, 06/16/19 12:42:00 EST, [facility], 30, TAKE 1 [...] Replace Required Details, Route to Pharmacy Electronically, [facility], 175, cm, 08/24/19 14:14:0... Start Date: 09/14/19 Status: Ordered Vitamin B1 100 mg oral tablet 1, tablet, By Mouth, Daily, # 90 tablet, Refills 3, Tot. Refills 3, Maintenance, 09/27/19 8:51:00 EDT, Route to Pharmacy Electronically, [facility], 175, cm, 08/24/19 14:14:00 EDT, Height, 81.2, kg, 02/04/19 1:40:00 EDT, Dry Weight Start Date: 09/27/19 Status: Ordered Xifaxan 550 mg oral tablet 1 tablet, By Mouth, 2 times a day, # 60 tablet, 0 Refills, Maintenance, 10/30/19 16:57:00 EDT, [facility], 175, cm, 08/24/19 14:14:00 EDT, Height, 81.2, kg, 02/04/19 1:40:00 EDT, Dry Weight Start Date: 10/30/19 Status: Ordered Xifaxan 550 mg oral tablet See Instructions, TAKE 1 TABLET BY MOUTH TWICE A DAY, # 60 tablet, 0 Refills, Maintenance, [facility], 175, cm, 08/24/19 14:14:00 EDT, Height, 81.2, kg, 02/04/19 1:40:00 EDT, Dry Weight Start Date: 12/01/19 Status: Ordered Problem List Condition Effective Dates [...] Diagnosis Diagnosis Type Effective Dates Health Status Clini oscar Service Informant Dry cough Discharge Diagnosis 12/19/19 Social History Social History Type Response Smoking Status 10 or more cigarette s (1/2 pack or more)/day in last 30 days entered on: 02/04/19 Sex
--- OUTSIDE RECORDS SUMMARY | 2023-12-15 21:03 | XMS_ITS | Continuity of Care Document ---
Author Organization [facility] Address [address] [place] [address]- Care Team Providers Care Health Care Coach Name Role Phone Jany Baig DO Primary Care Physician [place] [facility] [place] 11/01/20 - 12/01/20 [facility] [address] [place] [address]- Allergies, Adverse Reactions, Alerts Substance Reaction Severity [...] n 1Admin Note: #2 2Result Comment: [04/29/2017] [id number] 3Admin Note: FLUARIX 4Admin Note: 3 RDINJ Medications baclofen 10 mg oral tablet 1, tablet, By Mouth, 3 times a day, # 90 tablet, Refills 0, Tot. Refills 0, Maintenance, 11/22/20 16:13:00 EDT, Route to Pharmacy Electronically, [facility], 178, cm, 11/12/20 15:32:00 EDT, Height, 84.9, kg, 08/31/20 1:07:00 EDT, Dry Weight Start Date: 11/22/20 Status: Ordered chantix 1mg tablet 1 tablet, By Mouth, 2 times a day, # 56 tablet, 0 Refills, Acute, 11/22/20 16:13:00 EDT, [facility], 178, cm, 11/12/20 15:32:00 EDT, Height, 84.9, kg, 08/31/20 1:07:00 EDT, Dry Weight Start Date: 11/22/20 Status: Ordered Co Q-10 100 mg oral capsule See Instructions, TAKE 1 CAPSULE BY MOUTH FOUR TIMES DAILY, # 120 capsule, 7 Refills, Maintenance, [facility], 178, cm, 10/22/20 13:17:00 EDT, [...] 5 Refills, 07/09/20 11:38:00 EST, [facility], 30, SPRAY 1 SPRAY INTO EACH NOSTRIL TWICE A DAY, 175, cm, 04/02/20 0:35:00 EDT, Height, 100, kg, 04/02/20 0:35:00 EDT, Dry We... Start Date: 07/09/20 Status: Ordered gabapentin 600 mg oral tablet 1 tablet, By Mouth, 4 times a day, # 120 tablet, 0 Refills, Maintenance, 11/22/20 16:13:00 EDT, [facility], 178, cm, 11/12/20 15:32:00 EDT, Height, 84.9, kg, 08/31/20 1:07:00 EDT, Dry Weight Start Date: 11/22/20 Status: Ordered hydrOXYzine hydrochloride 25 mg oral tablet 1 TO 2 TABLETS, By Mouth, 3 times a day, PRN NEEDED FOR ANXIETY (VIAL), # 60 tablet, 3 Refills, Maintenance, 10/07/20 16:49:00 EDT, [facility], 178, cm, 08/31/20 11:25:00 EDT, Height, 84.9, kg, 08/31/20 1:07:00 EDT, Dry Weight Start Date: 10/07/20 Status: Ordered Keppra 500 mg oral tablet 1 tablet = 500 mg, By Mouth, 2 times a day, # 14 tablet, 0 Refills, Maintenance, 11/01/20 11:59:00 EDT, Tablet, [facility], Partial fill upon patient request if the prescription is for a schedule II opioid drug., 178, cm, 10/22/20 13:17:... Start Date: 11/01/20 Stop Date: 11/08/20 Status: Ordered melatonin 3 mg oral tablet 1 tablet = 3 mg, By Mouth, Daily at bedtime, PRN for insomnia, # 60 tablet, 4 Refills, Maintenance,07/18/20 17:30:00 EST, Tablet, [facility], 175, cm, 04/02/20 0:35:00 EDT, [...] 10/06/19 15:57:00 EDT, Tablet, [facility], 175, cm, 08/24/19 14:14:00 EDT,Height, 81.2, kg, 02/04/19 1:40:00 EDT, Dry Weight Start Date: 10/06/19 Status: Ordered sertraline 50 mg oral tablet 1 tablet, By Mouth, Daily, TAKE ALONG WITH A 100MG TABLET to equal 150mg daily, # 90 tablet, 1 Refills, Maintenance, 10/06/19 15:57:00 EDT, [facility], 175, cm, 08/24/19 14:14:00 EDT, [...] tablet, 10 Refills, Maintenance, [facility], 28, TAKE 1 TABLET BY [...] 0 Refills, Maintenance, 10/22/20 17:52:00 EDT, Tablet, [facility]/pharmacy #[id number], Partial fill upon [...] Pharmacy Electronically, [facility], 178, cm, 10/22/20... Start Date: 11/01/20 Status: Ordered Vitamin B1 100 mg oral tablet 1, tablet, By Mouth, Daily, # 90 tablet, Refills 2, Tot. Refills 0, Acute, 09/05/20 17:32:00 EDT, Route to Pharmacy Electronically, [facility], 178, cm, 08/31/20 11:25:00 EDT, [...]
--- OUTSIDE RECORDS SUMMARY | 2023-12-15 21:03 | XMS_ITS | Continuity of Care Document ---
Author Organization [facility] Address [address] [place] [address]- Care Team Providers Care Pump Room Operator Name Role Phone Jany Baig DO Primary Care Physician ( [phone] Encounter [facility] Date(s): 01/19/23 - 02/18/23 [facility] [address] [place] [address]- Allergies, Adverse Reactions, Alerts Substance Reaction Severity [...] Comment: [facility]: [id number] 2Result Comment: [04/29/2017] [id number] 3Admin Note: FLUARIX 4Admin Note: 3 RDINJ 5Admin Note: #2 Medications acamprosate 333 mg oral delayed release tablet 1 tablet = 333 mg, By Mouth, 3 times a day, # 42 tablet, 4 Refills, Maintenance, 11/05/22 11:31:00 EDT, EC Tablet, [facility], Partial fill upon patient request if the prescription is for a schedule II opioid drug., 175, cm, 11/05/22 10:21:00... Start Date: 11/05/22 Stop Date: 01/14/23 Status: Ordered amLODIPine 5 mg oral tablet 1 tablet, By Mouth, Daily, ^1R1., # 30 tablet, 5 Refills, Maintenance, 12/22/22 7:20:00 EDT, [facility], 175, cm, 12/03/22 11:50:00 EDT, Height, 88.9, kg, 10/21/22 20:41:00 EDT, Dry Weight Start Date: 12/22/22 Status: Ordered bacitracin zinc 500 units/g topical ointment 1 application, Topically, 2 times a day, # 30 Gm, 0 Refills, Acute 02/19/23 20:00:00 EDT, 02/12/23 11:47:00 EDT, Ointment, [facility], Partial fill upon patient request if [...] Details, Route to Pharmacy Electronically, [facility], 175, cm... Start Date: 01/14/23 Status: Ordered calcium (as carbonate)-vitamin D 500 mg-400 intl units oral tablet 1 tablet, By Mouth, Daily, ^1R1., # 28 tablet, 0 Refills, Maintenance, 12/01/22 16:12:00 EDT, [facility], 28, 1 tablet By Mouth Daily,Instr:^1R1., [...] capsule, 6 Refills, Maintenance, 12/03/22 12:13:00 EDT, [facility], 175, cm, 12/03/22 11:50:00 EDT, Height, [...] Gm, 0 Refills, Maintenance, 01/28/23 12:31:00 EDT, [facility], 13, APPLY TOPICALLY FOUR TIMES A DAY NEEDED FOR PAIN, 175, cm, 12/03/22 11:50:00 EDT, Height, 88.9,... Start Date: 01/28/23 Status: Ordered diclofenac 1% topical gel See Instructions, APPLY TOPICALLY FOUR TIMES A DAY NEEDED FOR PAIN, # 100 Gm, 0 Refills, Maintenance, 12/22/22 16:58:00 EDT, [facility], 13, APPLY TOPICALLY FOUR TIMES A [...] Route to Pharmacy Electronically, [facility], 176, cm, 09/07/22 8:56:00 EDT, Height, 82.1, kg, 09/07/22 8:59:00 EDT, Dry Weight Start Date: 10/06/22 Status: Ordered furosemide 20 mg oral tablet 1, tablet, By Mouth, Daily, R1., # 30 tablet, Refills 5, Tot. Refills 5, Maintenance, 09/03/22 14:50:00 EDT, Route to Pharmacy Electronically, [facility], 169, cm, 09/03/22 14:21:00 EDT, Height, 69, kg, 08/16/22 1:04:00 EST, Dry Weight Start Date: 09/03/22 Status: Ordered furosemide 20 mg oral tablet 20 mg, 1, tablet, By Mouth, Every other day, # 30 tablet, Refills 3, Tot. Refills 3, Maintenance, 01/28/23 12:31:00 EDT, Route to Pharmacy Electronically, [facility], Partial fill upon patient request if the prescription is for a schedule II o... Start Date: 01/28/23 Status: Ordered gabapentin 300 mg oral capsule 300 mg, 1, capsule, By Mouth, Daily at bedtime, note dose/frequency change, # 90 capsule, Refills 4, Tot. Refills 4, Maintenance, 11/05/22 11:05:00 EDT, Route to Pharmacy Electronically, [facility], 175, cm, 11/05/22 10:21:00 EDT, Height, 88.9... Start Date: 11/05/22 Stop Date: 01/29/24 Status: Ordered hydrOXYzine hydrochloride 10 mg oral tablet 2 tablet, By Mouth, 2 times a day, PRN NEEDED FOR ANXIETY (VIAL), # 30 tablet, 3 Refills, Maintenance, 12/22/22 16:57:00 EDT, [facility], 175, cm, 12/03/22 11:50:00 EDT, Height, 88.9, kg, 10/21/22 20:41:00 EDT, Dry Weight Start Date: 12/22/22 Status: Ordered lactulose 10 gm/15 ml oral syrup 15 mL, By Mouth, 2 times a day, # 120 mL, 6 Refills, Maintenance, 09/22/22 12:15:00 EDT, [facility], 4, TAKE 15ML BY MOUTH TWO TIMES A DAY, 176, cm, 09/07/22 8:56:00 EDT, Height, 82.1, kg, 09/07/22 8:59:00 EDT, Dry Weight Start Date: 09/22/22 Status: Ordered Lidoderm 5% film 1 patch, Topically, Daily, remove patches after 12 hours NSAIDS contraindicated High dose tylenol contraindicated remove patches after 12 hours Nueropathy, # 30 patch, 5 Refills, Maintenance, 11/05/22 11:04:00 EDT, [facility], Partial klaudia... Start Date: 11/05/22 Status: Ordered magnesium oxide 400 mg oral tablet See Instructions, TAKE 1 TABLET BY MOUTH TWICE A DAY^1R1,1R4, # 60 tablet, 11 Refills, Maintenance,01/28/23 12:31:00 EDT, [facility], 175, cm, 12/03/22 11:50:00 EDT, Height, 88.9, kg, 10/21/22 20:41:00 EDT, Dry Weight Start Date: 01/28/23 Status: Ordered Melatonin 3 mg oral tablet 1 tablet, By Mouth, Daily at bedtime, PRN NEEDED FOR INSOMNIA (PACKAGE IN TRAY)^1R4, # 60 tablet, 5 Refills, Maintenance, 06/12/22 18:11:00 EST, [facility], 60, TAKE 1 TABLET BY MOUTH [...] Route to Pharmacy Electronically, [facility], Partial fill upon patient request if [...] 11/05/22 11:31:00 EDT, Route to Pharmacy Electronically, [facility], Partial fill upon patient request if the prescription is for a schedule II opioid drug... Start Date: 11/05/22 Status: Ordered Tab-A-Jesse oral tablet 1 tablet, By Mouth, Daily, # 90 tablet, 1 Refills, 12/01/22 12:59:00 EDT, [facility], 28, 1tablet By Mouth Daily, 175, cm, 11/13/22 10:42:00 EDT, Height, 88.9, kg, 10/21/22 20:41:00 EDT, DryWeight Start Date: 12/01/22 Status: Ordered traZODone 50 mg oral tablet 2 tablets, By Mouth, Daily at bedtime, # 60 each, Refills 5, Tot. Refills 5, Maintenance, 09/03/22 17:13:00 EDT, Route to Pharmacy Electronically, [facility], 169, cm, 09/03/22 14:21:00 EDT, Height, [...] 02/09/23 23:18:00 EDT, Route to Pharmacy Electronically, [facility], 175, cm, 12/03/22 11:50:00 EDT, Height, 88.9, kg, 10/21/22 20:41:00 EDT, Dry Weight Start Date: 02/09/23 Status: Ordered Vitamin B6 50 mg oral tablet 1, tablet, By Mouth, Daily, R1., # 90 tablet, Refills 4, Maintenance, 11/16/22 13:39:00 EDT, Route to Pharmacy Electronically, [facility], 175, cm, 11/13/22 10:42:00 EDT, Height, [...] tablet, 3 Refills, Maintenance, 10/01/22 15:19:00 EDT, [facility], 176, cm, 09/07/22 8:56:00 EDT, Height, [...] Team Personnel Name: Alexandra Colmenares RN Position: [facility] ED RN W/OE and Tasks Member Role: Primary Care Nurse Name: Garima Manzano RN Position: [facility] RN Member Role: Primary Care Nurse Name: Malgorzata Marinelli RN Position: [facility] RN Member Role: Primary Care Nurse Name: Joyce Roach RN Position: [facility] RN Member Role: Primary Care Nurse Name: Mary Suazo RN Position: [facility] RN Member Role: Primary Care Nurse Name: Andres Pressley RN Position: [facility] RN Member Role: Primary Care Nurse Name: Jany Baig DO Position: [facility] Physician - Primary Care Member Role: PCP Address: Address: [address] [place] [address] Adult & [place] [address]- Name: Neida Ballard RN Position: [facility] RN Member Role: Primary Care Nurse Name: Kaye Payne RN Position: [facility] RN Member Role: Primary Care Nurse Name: Garima Hutchinson Position: [facility] RN Member Role: Primary Care Nurse Name: Malgorzata Austin Position: [facility] RN Member Role: Primary Care Nurse Name: Ibeth Adams RN Position: [facility] RN Member Role: Primary Care Nurse Name: Torrie Hernandez RN Position: [facility] OB RN Member Role: Primary Care Nurse Name: Gretchen Knutson RN Position: [facility] SN RN Member Role: Primary Care Nurse Name: Aislinn Mckee RN Position: [facility] RN Member Role: Primary Care Nurse Name: Ashley Mcelroy Position: [facility] RN Member Role: Primary Care Nurse Name: Cody Garcia Position: [facility] Associate Professional Member Role: Lifetime Consulting Provider Address: Address: [address] [place] [address]- Name: Ge Covarrubias RN Position: [facility] RN Member Role: Primary Care Nurse Name: Orin Elmore RN Position: [facility] ED RN W/OE and Tasks Member Role: Primary Care Nurse Name: Allegra Liu RN Position: [facility] AMB Nurse Member Role: Primary Care Nurse Name: Shayan Pandya MD Position: [facility] Renal MD Member Role: [employer]etime Consulting Physician Address: Address: [address] [facility] [place] [place] [address]- Name: Darlene Rodrigez RN Position: [facility] RN Member Role: Primary Care Nurse Name: Kwan Mills RN Position: [facility] RN Member Role: Primary Care Nurse Name: Dolores Can RN Position: [facility] RN Member Role: Primary Care Nurse Name: Monica Rowell RN Position: [facility] RN Member Role: Primary Care Nurse Name: Jimi Fitzpatrick RN Position: [facility] RN Member Role: Primary Care Nurse Care Team Related Persons Name: MARLEN CABEZAS Address: home [address] [place] [id number] Name: MARLEN CABEZAS Address: home [address] [place] [id number] Name: NICK CABEZAS Name: GEMA CABEZAS Address: home [address] [place] [address]
--- OUTSIDE RECORDS SUMMARY | 2023-12-15 21:03 | XMS_ITS | Continuity of Care Document ---
Author Organization [facility] Address [address] [place] [address]- Care Team Providers Care Public Health Professor Name Role Phone Jany Baig DO Primary Care Physician Encounter [facility] Date(s): 08/07/22 - 09/06/22 [facility] [address] [place] [address]- Allergies, Adverse Reactions, Alerts Substance Reaction Severity [...] 1Result Comment: [facility]: [id number] 2Result Comment: [04/29/2017] [id number] 3Admin Note: FLUARIX 4Admin Note: 3 RDINJ 5Admin Note: #2 Medications acamprosate 333 mg oral delayed release tablet 1 tablet = 333 mg, By Mouth, 3 times a day, # 90 tablet, 4 Refills, Maintenance, 09/03/22 14:59:00 EDT, EC Tablet, [facility], Partial fill upon patient request if the prescription is for a schedule II opioid drug., 169, cm, 09/03/22 14:21:00... Start Date: 09/03/22 Status: Ordered acetaminophen 500 mg oral tablet 1 tablet, By Mouth, 4 times a day, PRN NEEDED FOR PAIN, MAX 4, PER DAY (VIAL., # 50 tablet, 11 Refills, Maintenance, 03/13/22 8:37:00 EDT, [facility], 175, cm, 01/06/22 10:34:00 EDT, Height, 78.3, kg, 12/26/21 19:05:00 EDT, Dry Weight Start Date: 03/13/22 Status: Ordered amLODIPine 5 mg oral tablet See Instructions, TAKE 1 TABLET BY MOUTH ONCE A DAY^1R1, # 30 tablet, 5 Refills, Maintenance, 05/13/22 16:24:00 EST, [facility], 175, cm, 04/09/22 15:34:00 EDT, Height, 78.3, kg, 12/26/21 19:05:00 EDT, Dry Weight Start Date: 05/13/22 Status: Ordered baclofen 10 mg oral tablet See Instructions, TAKE 1 TABLET BY MOUTH THREE TIMES DAILY, # 90 tablet, Refills 0, Maintenance, 08/07/22 12:26:00 EST, Instructions Replace Required Details, Route to Pharmacy Electronically, [facility], 176, cm, 08/07/22 11:37:00 EST, Height... Start Date: 08/07/22 Status: Ordered Co Q-10 100 mg oral capsule See Instructions, TAKE 1 CAPSULE BY MOUTH FOUR TIMES DAILY, # 120 capsule, 6 Refills, Maintenance, 08/07/22 12:13:00 EST, [facility], 176, cm, 08/07/22 11:37:00 [...] Maintenance, 08/07/22 12:12:00 EST, [facility]/pharmacy #[id number], 30, USE 1 SPRAY(S) INTO EACH NOSTRIL TWICE A DAY, 176, cm,08/07/22 11:37:00 EST, Height, 79.8, kg, 07/31/22 2... Start Date: 08/07/22 Status: Ordered folic acid 1 mg oral tablet 1 mg, 1, tablet, By Mouth, Daily, # 90 tablet, Refills 4, Tot. Refills 4, Maintenance, 10/27/21 10:40:00 EDT, Route to Pharmacy [facility], [facility], Partial fill upon patient request if the prescription is for a schedule II opioid drug.... Start Date: 10/27/21 Stop Date: 01/20/23 Status: Ordered furosemide 20 mg oral tablet See Instructions, TAKE 1 TABLET BY MOUTH ONCE A DAY^1R1, # 30 tablet, Refills 2, Maintenance, 08/07/22 12:27:00 EST, Instructions Replace Required Details, Route to Pharmacy Electronically, [facility], 176, cm, 08/07/22 11:37:00 EST, Height, 7... Start Date: 08/07/22 Status: Ordered furosemide 20 mg oral tablet 1, tablet, By Mouth, Daily, R1., # 30 tablet, Refills 5, Tot. Refills 5, Maintenance, 09/03/22 14:50:00 EDT, Route to Pharmacy [facility]ically, [facility], 169, cm, 09/03/22 14:21:00 EDT, Height, 69, kg, 08/16/22 1:04:00 EST, Dry Weight Start Date: 09/03/22 Status: Ordered gabapentin 300 mg oral capsule 300 mg, 1, capsule, By Mouth, 2 times a day, note dose/frequency change, # 180 capsule, Refills 4, Tot. Refills 4, Maintenance, 09/03/22 14:55:00 EDT, Route to Pharmacy Electronically, [facility], 169, cm, 09/03/22 14:21:00 EDT, Height, 69, kg... Start Date: 09/03/22 Stop Date: 11/27/23 Status: Ordered hydrOXYzine hydrochloride 25 mg oral tablet 1 TO 2 TABLETS, By Mouth, Daily at bedtime, PRN NEEDED FOR ANXIETY (VIAL), # 60 tablet, 11 Refills, Maintenance, 03/13/22 8:38:00 EDT, [facility], 175, cm, 01/06/22 10:34:00 EDT, Height, 78.3, kg, 12/26/21 19:05:00 EDT, Dry Weight Start Date: 03/13/22 Status: Ordered lactulose 10 gm/15 ml oral syrup See Instructions, TAKE 30ML BY MOUTH THREE TIMES DAILY NEEDED TO ACHEIVE 3-4 BOWL MOVEMENTS PER DAY, # 3,000 mL, 10 Refills, [facility], 30, TAKE 30ML BY MOUTH THREE TIMES DAILY NEEDED TO ACHEIVE 3-4 BOWL MOVEMENTS PER DAY, 174, cm, 02/12... Start Date: 07/02/21 Status: Ordered Lidoderm 5% film 1 patch, Topically, Daily, remove patches after 12 hours NSAIDS contraindicated High dose tylenol contraindicated remove patches after 12 hours Nueropathy, # 30 patch, 5 Refills, Maintenance, 09/03/22 16:34:00 EDT, [facility], Partial klaudia... Start Date: 09/03/22 Status: Ordered magnesium oxide 400 mg oral tablet 1 tablet, By Mouth, 2 times a day, # 60 tablet, 11 Refills, Maintenance, 03/13/22 8:37:00 EDT, [facility], 175, cm, 01/06/22 10:34:00 EDT, Height, 78.3, kg, 12/26/21 19:05:00 EDT, Dry Weight Start Date: 03/13/22 Status: Ordered Melatonin 3 mg oral tablet 1 tablet, By Mouth, Daily at bedtime, PRN NEEDED FOR INSOMNIA (PACKAGE IN TRAY)^1R4, # 60 tablet, 5 Refills, Maintenance, 06/12/22 18:11:00 EST, [facility], 60, TAKE 1 TABLET [...] 09/03/22 14:53:00 EDT, Route to Pharmacy Electronically, [facility], Partial fill upon patient request if the prescription is for a schedule II opioid drug... Start Date: 09/03/22 Stop Date: 03/02/23 Status: Ordered pyridoxine 50 mg oral tablet 50 mg, 1, tablet, By Mouth, Daily, for 90 days, # 90 tablet, Refills 4, Tot. Refills 4, Acute 01/15/23 11:42:00 EDT, 10/22/21 11:42:00 EDT, Route to Pharmacy Electronically, [facility], Partial fill upon patient request if [...] tablet, 9 Refills, 08/07/22 12:27:00 EST, [facility]/pharmacy #[id number], 28, 1tablet By Mouth Daily, 176, cm, 08/07/22 11:37:00 EST, Height, 79.8, kg, 07/31/22 22:40:00 EST, DryWeight Start Date: 08/07/22 Status: Ordered traZODone 50 mg oral tablet 2 tablets, By Mouth, Daily at bedtime, # 60 each, Refills 5, Tot. Refills 5, Maintenance, 09/03/22 17:13:00 EDT, Route to Pharmacy Electronically, [facility], 169, cm, 09/03/22 14:21:00 EDT, Height, 69, kg, 08/16/22 1:04:00 EST, Dry Weight Start Date: 09/03/22 Status: Ordered Vitamin B1 100 mg oral tablet 1, tablet, By Mouth, Daily, # 90 tablet, Refills 3, Maintenance, 03/13/22 8:37:00 EDT, Route to Pharmacy Electronically, [facility], 175, cm, 01/06/22 10:34:00 EDT, Height, 78.3, kg, 12/26/2218:05:00 EDT, Dry Weight Start Date: 03/13/22 Status: Ordered Xifaxan 550 mg oral tablet 1 tablet, By Mouth, 2 times a day, ^1R1,1R4., # 60 tablet, 1 Refills, Maintenance, 06/12/22 18:10:00 EST, [facility], 179, cm, 06/08/22 7:37:00 EST, Height, [...] team information Care Team Personnel Name: Darrian LOUIE, Alexandra Demarco Position: S ED RN W/OE and Tasks Member Role: Primary Care Nurse Name: Garima Manzano RN Position: [facility] RN Member Role: Primary Care Nurse Name: Malgorzata Marinelli RN Position: [facility] RN Member Role: Primary Care Nurse Name: Joyce Roach RN Position: [facility] RN Member Role: Primary Care Nurse Name: Mary Suazo RN Position: [facility] RN Member Role: Primary Care Nurse Name: Andres Pressley RN Position: [facility] RN Member Role: Primary Care Nurse Name: Jany Baig DO Position: [facility] Primary Care Physician Member Role: PCP Address: Address: [address] [place] [address] Adult [facility] [place] [address]- Name: Neida Ballard RN Position: [facility] RN Member Role: Primary Care Nurse Name: Kaye Payne RN Position: [facility] RN Member Role: Primary Care Nurse Name: Garima Hutchinson Position: [facility] RN Member Role: Primary Care Nurse Name: Malgorzata Austin Position: [facility] RN Member Role: Primary Care Nurse Name: Torrie Hernandez RN Position: [facility] OB RN Member Role: Primary Care Nurse Name: Gretchen Knutson RN Position: [facility] SN RN Member Role: Primary Care Nurse Name: Aislinn Mckee RN Position: [facility] RN Member Role: Primary Care Nurse Name: Ashley Mcelroy Position: [facility] RN Member Role: Primary Care Nurse Name: Cody Garcia Position: [facility] Associate Professional Member Role: [employer] Consult[employer] Provider Address: Address: [address] [place] [address]- Name: Ge Covarrubias RN Position: [facility] RN Member Role: Primary Care Nurse Name: Orin Elmore RN Position: [facility] ED RN W/OE and Tasks Member Role: Primary Care Nurse Name: Allegra Liu RN Position: [facility] PCO RN Member Role: Primary Care Nurse Name: Shayan Pandya MD Position: [facility] Renal MD Member Role: Lif[employer] Consulting Physician Address: Address: [address] [place] [address] [address] [facility], [place] [address]- Name: Darlene Rodrigez RN Position: [facility] RN Member Role: Primary Care Nurse Name: Kwan Mills RN Position: S RN Member Role: Primary Care Nurse Name: Dolores Can RN Position: S RN Member Role: Primary Care Nurse Name: Kim Rendon RN Position: [facility] RN Member Role: Primary Care Nurse Name: Monica Rowell RN Position: [facility] RN Member Role: Primary Care Nurse Care Team Related Persons Name: MARLEN CABEZAS Address: [place] [address] Name: MARLEN CABEZAS Address: [place] [address] Name: NICK CABEZAS Name: GEMA CABEZAS Address: [place] [address]
--- OUTSIDE RECORDS SUMMARY | 2023-12-15 21:03 | XMS_ITS | Continuity of Care Document ---
Author Organization [facility] Address [address] [place] [id number]- Care Team Providers Care Delimer Name Role Phone Jany Baig DO Primary Care Physician Encounter [facility] Date(s): 12/14/19 - 01/13/20 [facility] [address] [place] [id number]- [facility] Attending Physician: Venice Salmon Admitting Physician: Venice [...] n 1Admin Note: #2 2Result Comment: [04/29/2017] [id number] 3Admin Note: FLUARIX 4Admin Note: 3 RDINJ Medications baclofen 10 mg oral tablet 10 mg, 1, tablet, By Mouth, 3 times a day, # 90 tablet, Refills 4, Tot. Refills 4, Maintenance, 10/06/19 16:18:00 EDT, Route to Pharmacy Electronically, [facility], 175, cm, 08/24/19 14:14:00EDT, Height, 81.2, kg, 02/04/19 1:40:00 EDT, Dry We... Start Date: 10/06/19 Stop Date: 03/04/20 Status: Ordered chantix 1mg tablet 1 tablet = 1 mg, By Mouth, 2 times a day, with a full glass of water, continue for total of 12 wks,# 56 tablet, 1 Refills, Maintenance, 10/06/19 15:54:00 EDT, Tablet, [facility], 175, cm, 08/24/19 14:14:00 EDT, Height, 81.2, kg, 02/04/19 1:40... Start Date: 10/06/19 Status: Ordered chantix 1mg tablet See Instructions, TAKE 1 TABLET BY MOUTH TWICE A DAY WITH A FULL GLASS OF WATER AND CONTINUE FOR A TOTAL OF 12 WEEKS, # 56 tablet, 0 Refills, Maintenance, 12/29/19 16:43:00 EDT, [facility], 175, cm, 08/24/19 14:14:00 EDT, Height, 81.2, kg, 08/... Start Date: 12/29/19 Status: Ordered Co Q-10 [...] 2 Refills, Maintenance, 11/02/19 9:02:00 EDT, Suspension, [facility]/pharmacy #[id number], 175, cm, 08/24/19 14:14:00 EDT, Height, 81.2, kg, 02/04/19 1:40:00 EDT, Dry Weight Start Date: 11/02/19 Status: Ordered fluticasone 50 mcg/inh nasal spray See Instructions, SPRAY 1 SPRAY INTO EACH NOSTRIL TWICE A DAY, # 16 Gm, 3 Refills, 10/06/19 14:35:00 EDT, [facility], 30, SPRAY 1 SPRAY INTO EACH NOSTRIL TWICE A DAY, 175, cm, 08/24/19 14:14:00 EDT, Height, 81.2, kg, 02/04/19 1:40:00 EDT, Dry... Start Date: 10/06/19 Status: Ordered gabapentin 600 mg oral tablet 1 tablet = 600 mg, By Mouth, 4 times a day, to replace prior script, # 120 tablet, 3 Refills, Maintenance, 10/09/19 11:18:00 EDT, Tablet, [facility], 175, cm, 08/24/19 14:14:00 EDT, Height, 81.2, kg, 02/04/19 1:40:00 EDT, Dry Weight Start Date: 10/09/19 Stop Date: 02/06/20 Status: Ordered hydrOXYzine hydrochloride 25 mg oral tablet 1 TO 2 TABLETS, By Mouth, 3 times a day, PRN NEEDED FOR ANXIETY, # 60 tablet, 2 Refills, Maintenance, 12/01/19 13:15:00 EDT, [facility] [...] EDT, Syrup, [facility], re sent from 10/04/17, 30... Start [...] tablet, 4 Refills, Maintenance,10/06/19 16:16:00 EDT, Tablet, [facility], 175, cm, 08/24/19 14:14:00 EDT, Height, 81.2, kg, 02/04/19 1:40:00 EDT, Dry Weight Start Date: 10/06/19 Status: Ordered mupirocin 2% topical ointment See Instructions, APPLY TOPICALLY THREE TIMES DAILY (APPLY A THIN FILM), # 22 Gm, 0 Refills, Acute,[facility], 8, APPLY TOPICALLY THREE TIMES DAILY (APPLY A THIN FILM), 175, cm, 08/24/19 14:14:00 EDT, Height, 81.2, kg, 02/04/19 1:40:00 EDT, D... Start Date: 10/30/19 Status: Ordered mupirocin 2% topical ointment See Instructions, APPLY TOPICALLY THREE TIMES DAILY (APPLY A THIN FILM), # 22 Gm, 0 Refills, Maintenance, 12/29/19 16:43:00 EDT, [facility], 8, APPLY TOPICALLY THREE TIMES DAILY [...] [facility], [facility], cm, 08/24/19 14:14:00 EDT,Height, 81.2, kg, 02/04/19 1:40:00 EDT, Dry Weight Start Date: 10/06/19 Status: Ordered sertraline 50 mg oral tablet 1 tablet, By Mouth, Daily, TAKE ALONG WITH A 100MG TABLET to equal 150mg daily, # 90 tablet, 1 Refills, Maintenance, 10/06/19 15:57:00 EDT, [facility], 175, cm, 08/24/19 14:14:00 EDT, Height,81.2, kg, 02/04/19 1:40:00 EDT, Dry Weight Start Date: 10/06/19 Status: Ordered Tab-A-Jesse oral tablet 1 tablet, By Mouth, Daily, # 30 tablet, 11 Refills, Maintenance, 06/16/19 12:42:00 EST, [facility], 175, cm, 08/24/19 14:14:0... Start Date: 09/14/19 Status: Ordered Vitamin B1 100 mg oral tablet 1, tablet, By Mouth, Daily, # 90 tablet, Refills 3, Tot. Refills 3, Maintenance, 09/27/19 8:51:00 EDT, Route to Pharmacy Electronically, [facility], 175, cm, 08/24/19 14:14:00 EDT, Height, 81.2, kg, 02/04/19 1:40:00 EDT, Dry Weight Start Date: 09/27/19 Status: Ordered Xifaxan 550 mg oral tablet 1 tablet, By Mouth, 2 times a day, # 60 tablet, 0 Refills, Maintenance, 10/30/19 16:57:00 EDT, [facility], 175, cm, 08/24/19 14:14:00 EDT, Height, 81.2, kg, 02/04/19 1:40:00 EDT, Dry Weight Start Date: 10/30/19 Status: Ordered Xifaxan 550 mg oral tablet See Instructions, TAKE 1 TABLET BY MOUTH TWICE A DAY, # 60 tablet, 0 Refills, 12/29/19 16:43:00 EDT, [facility] [...]
--- NOTE | 2023-12-15 21:10 | PC.NURSE ---
pt biba under section [address] [facility] making SI comments. +ETOH. security called to bedside to change pt over, pt refusing. pt became combative, swinging at staff. attempted verbal reassurance unable to calm pt. MD to bedside. order for IM restraints. pt medicated at 2009 with IM meds. 2024 pt calm/cooperative. agreeable to blood work. labs drawn and sent to lab. vss, resp even and unlabored. pt is blind at baseline, white cane at bedside for impairment. pt is axox3 speaking full clear sentences. 1:1 sitter at bedside. pt in hospital clothes belongings locked in pod.
--- NOTE | 2023-12-15 21:20 | PC.NURSE ---
spoke with pt sister, Shauna Bassett t#[phone] sts she is pt HCP (HCP form was completed at [facility]), updated on plan of care, she sts that he was concerned that pt had been drinking, as he had called her earlier this evening with vague SI statements. Updated on plan of care.
--- NOTE | 2023-12-15 21:30 | MHC.EDTECH ---
Hourly rounds and vitals completed,BP is a little low 105/54,RN Aysham made aware,patient is resting comfortably,1:1 sitter at bedisde
--- NOTE | 2023-12-16 02:12 | MHC.EDTECH ---
Hourly rounds and vitals completed,patient is comfortably,1:1 sitter at bedside for safety
[2023-12-16 02:23] VITALS: BP 140/88; PULSE 61; RESP 16; TEMP 36.9; O2SAT 95
[2023-12-16 04:23] VITALS: BP 138/79; PULSE 68; RESP 16; TEMP 36.7; O2SAT 96
[2023-12-16 05:39] VITALS: BP 131/74; PULSE 71; RESP 16; TEMP 36.6; O2SAT 96
--- NOTE | 2023-12-16 05:42 | MHC.EDTECH ---
Hourly rounds and vitals completed,patient is resting comfortably,1:1 sitter at bedside for safety
[2023-12-16 07:35] VITALS: BP 130/69; PULSE 91; RESP 16; O2SAT 96
[2023-12-16 09:00] LABS: Amphetamine Screen Urine Not Detected (Not Detect); Barbiturates, Urine Not Detected (Not Detect); Benzodiazepines Screen Urine Not Detected (Not Detect); Buprenorphine Scr Not Detected (Not Detect); Cannabinoid Screen Urine Not Detected (Not Detect); Cocaine Screen Urine Not Detected (Not Detect); Fentanyl, urine Not Detected (Not Detect); Methadone Screen, Urine Not Detected (Not Detect); Opiate Screen Urine Not Detected (Not Detect); Oxycodone Screen Urine Not Detected (Not Detect); Phencyclidine Screen Urine Not Detected (Not Detect)
--- NOTE | 2023-12-16 11:44 | MHC.CARE ---
Addendum entered by Sulema Atkins LCSW 12/16/23 12:18: Initial screening completed with Ni[facility] at [facility] Original Note: Pt referred to [facility], referral activated @[id number]
--- NOTE | 2023-12-16 13:41 | MHC.CARE ---
Patient declined by [facility] due to potential alcohol withdrawal, can be represented after 72hrs of observation.
--- NOTE | 2023-12-16 13:53 | PC.NURSE ---
Elliot from [facility] at bedside speaking with patient. Pt is calm/cooperative at this time. Plan for respite.
[2023-12-16 15:45] VITALS: BP 132/70; PULSE 70; RESP 18; TEMP 36.5; O2SAT 96
--- NOTE | 2023-12-16 15:46 | MHC.EDTECH ---
Hourly round and vitals completed, patient is resting comfortably and most of the time sleeping.
--- NOTE | 2023-12-16 16:10 | MHC.CARE ---
Pt was declined for [facility] due to ETOH use. [facility] reported Pt would have to be under observation for ETOH withdrawl for 72 hours. Clinician to meet with him to determine alternate discharge plan.
[2023-12-17 04:48] VITALS: BP 137/67; PULSE 79; RESP 17; TEMP 36.8; O2SAT 95
--- NOTE | 2023-12-17 07:46 | PC.NURSE ---
Resumed care of patient, he is currently sleeping, pt alerted that his breakfast is here, however patient stated he was not hungry at this time and went back to bed. Pt denies complaints of SOB/shaking/dizziness.
[2023-12-17 10:29] VITALS: BP 136/75; PULSE 78; RESP 16; TEMP 37.3; O2SAT 97
--- NOTE | 2023-12-17 11:32 | MHC.CARE ---
Patient referred to [facility].
--- NOTE | 2023-12-17 13:30 | MHC.CARE ---
Patient was declined for [facility] due to ETOH use.
[2023-12-17 13:34] VITALS: BP 142/76; PULSE 88; RESP 20; TEMP 37.5; O2SAT 96
--- NOTE | 2023-12-17 13:34 | PC.NURSE ---
med rec completed, list gathered from last filled list and confirmed at bedside w pt.
--- NOTE | 2023-12-17 13:53 | MHC.CARE ---
CARE Team calls [facility] ([phone] [place] Team 1) to as about the referral process for this pt. No one was available at the time of the call, a message was left requesting a return phone call.
[2023-12-17] MEDS: amLODIPine Besylate 5 MG TABLET PO (15:01)
[2023-12-17] MEDS: Multivitamin TABLET 1 TAB PO (15:01)
[2023-12-17] MEDS: Furosemide 20 MG TABLET 10 MG PO (15:01)
[2023-12-17] MEDS: Folic Acid 1 MG TABLET PO (15:01)
[2023-12-17] MEDS: Gabapentin 300 MG CAPSULE PO (15:01)
[2023-12-17] MEDS: Pyridoxine HCl (Vitamin B6) 50 MG TABLET PO (15:01)
[2023-12-17] MEDS: Sennosides 8.6 MG TABLET 17.2 MG PO (15:01)
[2023-12-17] MEDS: Omeprazole 20 MG CAPSULE.DR PO (15:01)
[2023-12-17] MEDS: Thiamine HCL 100 MG TABLET PO (15:01)
[2023-12-17] MEDS: Lactulose 20 GM/30 ML SOLUTION PO ×2 (15:02→21:28)
[2023-12-17] MEDS: PARoxetine HCL 10 MG TABLET PO (16:37)
[2023-12-17] MEDS: Acamprosate Calcium 333 MG TABLET.DR 666 MG PO ×2 (16:37→21:26)
[2023-12-17] MEDS: Baclofen 10 MG TABLET PO ×2 (16:37→21:26)
[2023-12-17] MEDS: Magnesium Oxide 400 MG TABLET PO (16:37)
[2023-12-17 20:10] VITALS: BP 129/77; PULSE 81; RESP 16; TEMP 37.1; O2SAT 97
[2023-12-17] MEDS: Melatonin 3 MG TABLET PO (21:26)
[2023-12-17] MEDS: traZODone HCL 100 MG TABLET PO (21:26)
[2023-12-18 06:02] VITALS: BP 119/65; PULSE 84; RESP 19; TEMP 36.7; O2SAT 96
[2023-12-18] MEDS: Omeprazole 20 MG CAPSULE.DR PO (06:20)
[2023-12-18 11:25] VITALS: BP 121/62; PULSE 72; RESP 14; TEMP 36.9; O2SAT 97
[2023-12-18] MEDS: Gabapentin 300 MG CAPSULE PO (11:31)
[2023-12-18] MEDS: Acamprosate Calcium 333 MG TABLET.DR 666 MG PO ×2 (11:31→16:33)
[2023-12-18 11:34] VITALS: BP 121/62
[2023-12-18] MEDS: amLODIPine Besylate 5 MG TABLET PO (11:34)
[2023-12-18] MEDS: Lactulose 20 GM/30 ML SOLUTION PO (11:35)
[2023-12-18] MEDS: Multivitamin TABLET 1 TAB PO (11:35)
[2023-12-18] MEDS: Thiamine HCL 100 MG TABLET PO (11:35)
[2023-12-18 11:36] VITALS: BP 121/62
[2023-12-18] MEDS: Furosemide 20 MG TABLET 10 MG PO (11:36)
[2023-12-18] MEDS: Baclofen 10 MG TABLET PO ×2 (11:36→16:33)
[2023-12-18] MEDS: Folic Acid 1 MG TABLET PO (11:38)
[2023-12-18] MEDS: Pyridoxine HCl (Vitamin B6) 50 MG TABLET PO (11:38)
[2023-12-18] MEDS: Magnesium Oxide 400 MG TABLET PO (12:50)
[2023-12-18] MEDS: PARoxetine HCL 10 MG TABLET PO (12:50)
--- NOTE | 2023-12-18 16:11 | MHC.CARE ---
Received call back from sisters, Shauna and Libertad. They report they have concerns that pt will continue drinking if discharged. Both report pt can become aggressive when inebriated. The concerns presented were in the context of pt's substance use. They have no concerns of SI/HI. T/W explained process of sec 35 if family has concerns about pt's substance use. Shauna reports pt is not allowed back at father's. There is no active RO against him but father does not want him there. T/W spoke with pt. He states he has spoken with coach mechanic Elliot and is aware that he cannot be d/c to father's home. Pt states he will just go to [facility]. Per Elliot [phone], [facility] may have a bed for pt tomorrow accord to [facility] sup. Nadira. T/W presented pt with information about possible [facility] bed tomorrow. He stated he would rather be discharged to group home and would follow up with [facility] tomorrow. Pt provided t/w with consent to speak to Elliot about d/c to group home. Elliot stated [facility] will not take him tomorrow if he drinks tonight. T/W informed pt of this, he continues to advocate for d/c to group home. Pt is able to contract for safety. He reports he will follow up with RAUL/Elliot in the morning.
[2023-12-18 16:36] VITALS: BP 112/82; PULSE 108; RESP 18; TEMP 37.2; O2SAT 100
[2023-12-18 16:44] VITALS: BP 112/82; PULSE 108; RESP 18; O2SAT 100
--- NOTE | 2023-12-18 18:26 | PC.NURSE ---
Assumed care of this patient at o645 today, pt alert and oriented x4, VSS, Pt denied complaint. He ambulated with cane for vision loss and contact guard with steady gait. Lung CTA, abdomen s/nt/+bs x4. trace LE edema. CIWA 0. One last steri strip starting to peel on his well healed R hip/flank surgical incision. He was discharged with meds from ED and pharmacy and his belongings. Pt states he brought $900 to hospital. $3.00 was documented upon arrival. Pt states he always carries a few dollars separately. ED, security, and pharmacy were contacted and no record of the $900 was found. Pt aware.
== END 2023-12-18 17:07 | disposition home or self-care (01) ==
PROVIDERS: Emergency Provider Emergency Medicine
DX: F10.129 Alcohol abuse with intoxication, unspecified (principal); R45.851 Suicidal ideations; Y90.6 Blood alcohol level of 120-199 mg/100 ml; Z65.3 Problems related to other legal circumstances; I10 Essential (primary) hypertension; H54.8 Legal blindness, as defined in USA; F43.10 Post-traumatic stress disorder, unspecified; K74.60 Unspecified cirrhosis of liver; R01.1 Cardiac murmur, unspecified
CPT/HCPCS: 36415; 80048; 80076; 80143; 80179; 80307; 83690; 85025; 96372; 99285; J1200; J1630; J2060; S9485

== ENCOUNTER 2023-12-22 14:04 | Emergency (ER) | payer OTHER, SELFPAY ==
[2023-12-22 14:19] VITALS: BP 134/84; PULSE 118; RESP 18; TEMP 36.2; O2SAT 99; BMI 23.6
--- NOTE | 2023-12-22 14:20 | ECG_ITS ---
Test Reason : TACHYCARDIA Blood Pressure : / mmHG Vent. Rate : 109 BPM Atrial Rate : 109 BPM P-R Int : 154 ms QRS Dur : 088 ms QT Int : 370 ms P-R-T Axes : 046 041 029 degrees QTc Int : 498 ms Sinus tachycardia Minimal voltage criteria for LVH, may be normal variant ( Sokolow-Avalos ) Borderline ECG When compared with ECG of 19-JAN-2022 05:24, No significant change was found Referred By: Pito Foster Electronically Signed By:Dickson Uriostegui
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
--- NOTE | 2023-12-22 14:21 | PC.NURSE ---
Pt angry and uncooperative, demands to see an MD and leave AMA. Pt is alert, answering questions, breathing even and unlabored, skin and clothes unkept. Pt does admit to alcohol use today, unknown how much. Security and MD at bedside. Pt only allows to vitals and ECG then demands to leave. Denies any pain, SOB, SI or HI.
[2023-12-22] MEDS: Bacitracin Oint 0.9 GM PACKET 1 APPL TOPICAL (14:44)
--- NOTE | 2023-12-22 15:02 | MHC.CARE ---
T/W left a message for Darlyn, Pt's therapist to inform her Pt was not going to be assessed by the Care team and would be discharged. [facility] called the CARE team to follow up in regard to Pt and they were informed Pt would not be assessed. Per Dr. Foster Pt is denying any psychiatric symptoms and is refusing to provide labs. Pt would have to be restrained in order to receive bloodwork and there is no significant risk for the medical team to do that at this time. Pt was evaluated by the CARE time last week and deemed [facility] level of care however was declined by [facility] and [facility] respite secondary to Pt's alcohol use. Pt was voluntary level of care and discharged at that time.
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
[2023-12-22 15:21] VITALS: BP 134/84; PULSE 118; RESP 18; TEMP 36.2; O2SAT 99
== END 2023-12-22 15:22 | disposition home or self-care (01) ==
PROVIDERS: Emergency Provider Emergency Medicine
DX: F10.129 Alcohol abuse with intoxication, unspecified (principal); R00.0 Tachycardia, unspecified; Y90.9 Presence of alcohol in blood, level not specified; Z71.41 Alcohol abuse counseling and surveillance of alcoholic
CPT/HCPCS: 93005; 99283

== ENCOUNTER → 2023-12-22 14:20 | Outpatient (BNV) | payer OTHER, SELFPAY | PROVIDERS: Emergency Provider Emergency Medicine; Visit Provider Internal Medicine Cardiovascular Disease | DX: R00.0 Tachycardia, unspecified (principal); R94.31 Abnormal electrocardiogram [ECG] [EKG] | CPT/HCPCS: 93010 ==

== ENCOUNTER 2024-04-13 02:46 | Emergency (ER) | payer OTHER, SELFPAY ==
[2024-04-13 02:52] VITALS: BP 140/82; PULSE 92; O2SAT 99
[2024-04-13 02:58] VITALS: BMI 27.4
[2024-04-13 03:00] VITALS: BP 132/76; PULSE 109; RESP 18; O2SAT 99
[2024-04-13 03:32] LABS: MANUAL DIFF FLAG NO
--- NOTE | 2024-04-13 03:38 | PC.NURSE ---
sandwich and elba teresa provided per request.
[2024-04-13 03:39] LABS: Basophils Percent Auto 0.3 % (0-2); Eosinophils Absolute Auto 0.1 X10*3/uL (0.0-0.4); Eosinophils Percent Auto 1.4 % (0-4); Hematocrit 35.1 % (42.0-52.0); Imm Gran Abs Auto 0.03 X10*3/uL (0.00-0.03); Imm Gran Pct Auto 0.5 % (0.0-0.4); Lymphocytes Absolute Auto 1.2 X10*3/uL (1.2-4.9); Lymphocytes Percent Auto 18.4 % (20-40); Mean Corpuscular HGB Conc 34.2 g/dl (31.0-36.0); Mean Corpuscular Hemoglobin 30.5 pg (27.0-33.0); Mean Corpuscular Volume 89.1 fL (80.0-98.0); Mean Platelet Volume 9.7 fL (9.4-12.4); Monocytes Absolute Auto 0.9 X10*3/uL (0.1-1.2); Monocytes Percent Auto 14.2 % (2-11); Neutrophils Absolute Auto 4.2 x10*3/uL (2.0-8.3); Neutrophils Percent Auto 65.2 % (45-73); Platelet Count 108 X10*3/uL (160-400); Red Blood Count 3.94 X10*6/uL (4.60-5.80); Red Cell Distribution Width 16.6 % (11.0-16.0); White Blood Count 6.4 X10*3/uL (4.8-10.8)
--- OUTSIDE RECORDS SUMMARY | 2024-04-13 03:45 | XMS_ITS | Referral Summary ---
Author Organization [facility] Address [address] [place] [address]- Care Team Providers Care Product Test Specialist Name Role Phone LACHELLE PCP OJESUS Primary Care Physician Unavailab le Encounter [email or web address] [id number] Date(s): 04/10/24 - 04/10/24 [facility] [address] [phone] Encounter Diagnosis Well adult exam(Discharge Diagnosis) - 04/10/24 Discharge Disposition: Home Attending Physician: NICK ZARATE MD Allergies, Adverse Reactions, Alerts Substance Reaction Severity Status Motrin Unknown Active Tylenol Unknown Active aspirin tbd Active Medications amLODIPine 5 mg oral tablet 5 mg = 1 tab, oral, Daily, 30 tab, tab Start Date: 04/05/24 Status: Ordered lactulose 10 g/15 mL oral syrup 10 g = 15 mL, oral, Daily, PRN as needed for constipation, 480 mL, syrup Start Date: 04/05/24 Status: Ordered Problem List Condition Confirmation Course Effective Dates Status Health St atus Informant Anxiety Confirmed Resolved Sinusitis Confirmed Resolved Diagnosis Diagnosis Type Effective Dates Health Status Cl inical Service Informant Medical screening exam Reason For Visit 04/10/24 Non-Specified Well adult exam Discharge Diagnosis 04/10/24 Non-Specified Vital Signs Most recent to oldest [Reference Range]: 1 2 3 Temperature Oral [36.5-37.5 degC] 36.7 degC (04/10/24 6:49 PM) Temperature Rectal [36.5-37.5 degC] 37 degC (04/10/24 7:00 PM) Heart Rate Monitored, Pleth [60-100 bpm] 110 bpm *High* (04/10/24 8:00 PM) 115 bpm *High* (04/10/24 7:50 PM) 104 bpm *High* (04/10/24 7:33 PM) Pulse Rate, Peripheral [60-100 bpm] 107 bpm *High* (04/10/24 6:49 PM) Respiratory Rate [12-20 BR/min] 20 BR/min (04/10/24 6:49 PM) SpO2 Monitored, EKG [92-100 %] 98 % (04/10/24 8:00 PM) 100 % (04/10/24 7:50 PM) 100 % (04/10/24 7:33 PM) Oxygen Therapy Room air (04/10/24 8:00 PM) Room air (04/10/24 6:49 PM) Blood Pressure Cuff [90-120/60-80 mmHg] 156/86mmHg *High* (04/10/24 6:49 PM) Mean Arterial Pressure Cuff - Manual [70-93 mmHg] 133 mmHg *High* (04/10/24 6:49 PM) Blood Pressure [90-120/60-80 mmHg] 151/77mmHg *High* (04/10/24 8:00 PM) 180/151mmHg *High* (04/10/24 7:33 PM) Height/Length Dosing 175 cm (04/10/24 6:49 PM) Weight Dosing 81 kg (04/10/24 6:49 PM) BSA Dosing 1.98 m2 (04/10/24 6:49 PM) Body Mass Index Dosing [17-35 kg/m2] 26.45 kg/m2 (04/10/24 6:49 PM) Inches 69 in (04/10/24 6:49 PM) Lbs 180 lb (04/10/24 6:49 PM) Social History Social History Type Response Smoking Status Unknown if ever smok ed entered on: 04/08/24 Sex Male Patient Care team information Personnel Name: LOPEZ LAROSE
--- OUTSIDE RECORDS SUMMARY | 2024-04-13 03:45 | XMS_ITS | Referral Summary ---
Author Organization [facility] Address [address] [place] [address]- Care Team Providers Care Tripper Name Role Phone LACHELLE, PCP GLENNY Primary Care Physician Unavail le Encounter [facility] [id number] Date(s): 04/05/24 - 04/05/24 [facility] [address] [phone] Encounter Diagnosis Acute alcohol intoxication(Discharge Diagnosis) - 04/05/24 Discharge Disposition: Home Attending Physician: CHUNG WHITE MD Allergies, Adverse Reactions, Alerts Substance Reaction Severity Status Motrin Unknown Active Tylenol Unknown Active aspirin Active Assessment and Plan Extracted from: Title:ED Provider Note Author:CHUNG WHITE MD Date:04/05/24 Assessment/Plan Acute alcohol intoxication??F10.929 Patient Education Alcohol Intoxication Follow Up With When Contact Information PCP GLENNY LAROSE Only if needed Additional Instructions: Medications amLODIPine 5 mg oral tablet 5 [...] Dates Health Status Clinical Service Informant Alcohol intoxication Reason For Visit 04/05/24 Non-Specified Leg pain-swelling Reason For Visit 04/05/24 Non-Specified Acute alcohol intoxication Discharge Diagnosis 04/05/24 Non-Specified Vital Signs Most recent to oldest [Reference Range]: 1 Temperature Oral [36.5-37.5 degC] 36.6 d egC (04/05/24 2:43 AM) Pulse Rate, Peripheral [60-100 bpm] 107 bpm *High* (04/05/24 2:43 AM) Respiratory Rate [12-20 BR/min] 20 BR/mi n (04/05/24 2:43 AM) SpO2 Monitored, EKG [92-100 %] 95 % (04/05/24 2:43 AM) Oxygen Therapy Room air (04/05/24 2:43 AM) Blood Pressure Cuff [90-120/60-80 mmHg] 148/90mmHg *High* (04/05/24 2:43 AM) Mean Arterial Pressure Cuff - Manual [70 -93 mmHg] 129 mmHg *High* (04/05/24 2:43 AM) Height/Length Dosing 175.26 cm (04/05/24 2:43 AM) Weight Dosing 81.65 kg (04/05/24 2:43 AM) BSA Dosing 1.99 m2 (04/05/24 2:43 AM) Body Mass Index Dosing [17-35 kg/m2] 26. 58 kg/m2 (04/05/24 2:43 AM) Inches 69 in (04/05/24 2:43 AM) Lbs 180 lb (04/05/24 2:43 AM) Social History Social History Type Response Smoking Status Former smoker entered on: 02/09/15 Sex Male Patient Care team information Personnel Name: LOPEZ LAROSE
--- OUTSIDE RECORDS SUMMARY | 2024-04-13 03:45 | XMS_ITS | Continuity of Care Document ---
Author Organization [facility] Address [address] [place] [address]- Care Team Providers Care Production Potter Name Role Phone Jany Baig DO Primary Care Physician ( [phone] Encounter [facility] Date(s): 11/24/23 - 02/04/24 [facility] [address] [place] [address]- Attending Physician: Elias Hedrick MD Admitting Physician: Elias Hedrick MD Referring Physician: Jany Baig DO Allergies, [...] 1Result Comment: [facility]: [id number] 2Result Comment: [04/29/2017] [id number] 3Admin Note: FLUARIX 4Admin Note: 3 RDINJ 5Admin Note: #2 Medications Aldactone 25 mg oral tablet 25 mg, 1, tablet, By Mouth, Daily, # 30 tablet, Refills 0, Tot. Refills 0, Maintenance, 01/06/24 15:25:00 EDT, Route to Pharmacy Electronically, [facility], Partial fill upon patient request if the prescription is for a schedule II opioi... Start Date: 01/06/24 Stop Date: 02/05/24 Status: Ordered Bactrim DS 800 mg-160 mg oral tablet 1 tablet, By Mouth, 2 times a day, for 30 days, # 60 tablet, 5 Refills, Acute 06/14/24 6:34:00 EST,12/17/23 6:34:00 EDT, Tablet, [facility], Partial fill upon patient request if [...] 07/28/23 12:08:00 EST, Route to Pharmacy Electronically, [facility], 175, cm, 07/28/23 9:11:00 EST, Height, [...] 07/28/23 12:09:00 EST, Route to Pharmacy Electronically, [facility] [...] opioid drug. Start Date: 11/05/23 Status: Ordered melatonin 3 mg oral tablet 1 tablet = 3 mg, By Mouth, Daily at bedtime, 0 Refills, Maintenance, 11/06/23 18:32:00 EDT, Partialfill upon patient request if the prescription is for a schedule II opioid drug. Start Date: 11/06/23 Status: Ordered Norvasc 5 mg oral tablet 5 mg, 1, tablet, By Mouth, Daily, # 30 tablet, Refills 0, Tot. Refills 0, Maintenance, 01/06/24 15:25:00 EDT, Route to Pharmacy Electronically, [facility] 3, Partial fill upon patient request if the prescription is for a schedule II opioid... Start Date: 01/06/24 Stop Date: 02/05/24 Status: Ordered pantoprazole 40 mg oral delayed [...] 5 Refills, Maintenance, 05/06/23 19:16:00 EST, [facility], 30, TAKE 1 TABLET BY MOUTH ONCE A DAY^1R1, 175, cm, 03/22/23 6:50:00 EDT, Height, 77.5,kg, 03/20/23 11:30:00 EDT, Dry Weight Start Date: 05/06/23 Status: Ordered Vitamin B1 100 mg oral tablet 1, tablet, By Mouth, Daily, # 90 tablet, Refills 3, Tot. Refills 3, Maintenance, 07/28/23 12:12:00 EST, Route to Pharmacy Electronically, [facility], 175, cm, 07/28/23 9:11:00 EST, Height, 61.3, kg, 07/12/23 23:27:00 EST, Dry Weight Start Date: 07/28/23 Status: Ordered Vitamin B6 50 mg oral tablet 1, tablet, By Mouth, Daily, R1., # 90 tablet, Refills 4, Tot. Refills 4, Maintenance, 07/28/23 12:11:00 EST, Route to Pharmacy Electronically, [facility], 175, cm, 07/28/23 9:11:00 EST, Height, [...] 30 days entered on: 02/04/19 Sex Male Patient Care team information Care Team Personnel Name: Shira Galindo RN Position: [facility] RN Member Role: Primary Care Nurse Name: Estela Martinez RN Position: [facility] RN Member Role: Primary Care Nurse Name: Alexandra Colmenares RN Position: [facility] ED RN W/OE and Tasks Member Role: Primary Care Nurse Name: Garima Manzano RN Position: [facility] RN Member Role: Primary Care Nurse Name: Malgorzata Marinelli RN Position: [facility] RN Member Role: Primary Care Nurse Name: Joyce Roach RN Position: [facility] ED RN W/OE and Tasks Member Role: Primary Care Nurse Name: Lucina Peralta RN Position: [facility] RN Member Role: Primary Care Nurse Name: Jean Epstein RN Position: [facility] RN Member Role: Primary Care Nurse Name: Maria Esther Craig LPN Position: [facility] RN Member Role: Primary Care Nurse Name: Kaye Comer RN Position: [facility] RN Member Role: Primary Care Nurse Name: Kenyatta Kirby RN Position: [facility] RN Member Role: Primary Care Nurse Name: Andres Pressley RN Position: [facility] RN Member Role: Primary Care Nurse Name: Jany Baig DO Position: [facility] Physician - Primary Care Member Role: PCP Address: Address: [address] [place] [address] Adult [facility] Pediatric [address] Name: Mary Haines NP Position: [facility] Associate Professional Member Role: Primary Care Nurse Address: Address: [address] [place] [address] Name: Garima Curry RN Position: [facility] RN Member Role: Primary Care Nurse Name: Britney Davis RN Position: [facility] RN Member Role: Primary Care Nurse Name: Malgorzata Austin RN Position: [facility] RN Member Role: Primary Care Nurse Name: Ibeth Adams RN Position: [facility] RN Member Role: Primary Care Nurse Name: Torrie Hernandez RN Position: [facility] OB RN Member Role: Primary Care Nurse Name: Yoselin Jones RN Position: [facility] RN Member Role: Primary Care Nurse Name: Gretchen Knutson RN Position: [facility] SN RN Member Role: Primary Care Nurse Name: Aislinn Mckee RN Position: [facility] RN Member Role: Primary Care Nurse Name: Ashley Mcelroy RN Position: [facility] RN Member Role: Primary Care Nurse Name: Ashok Kevin RN Position: [facility] RN Member Role: Primary Care Nurse Name: Eben Villavicencio RN Position: [facility] RN Member Role: Primary Care Nurse Name: Cody Garcia Position: [facility] Associate Professional Member Role: Lifetime Consulting Provider Address: Address: [address] [place] [address] Name: Paige Nascimento RN Position: [facility] RN Member Role: Primary Care Nurse Name: Kacey Woodard RN Position: [facility] RN Member Role: Primary Care Nurse Name: Sue Combs RN Position: [facility] RN Member Role: Primary Care Nurse Name: Ge Covarrubias RN Position: [facility] RN Member Role: Primary Care Nurse Name: Orin Elmore RN Position: [facility] ED RN W/OE and Tasks Member Role: Primary Care Nurse Name: Allegra Liu RN Position: [facility] AMB Nurse Member Role: Primary Care Nurse Name: Shayan Pandya MD Position: [facility] Renal MD Member Role: Lifetime Consulting Physician Address: Address: [address] [place] [address] [address] [facility], [address] Name: Kimberley Pittman RN Position: [facility] RN Member Role: Primary Care Nurse Name: Darlene Rodrigez RN Position: [facility] RN Member Role: Primary Care Nurse Name: Alison Helton RN Position: [facility] RN Member Role: Primary Care Nurse Name: Dixie Duke RN Position: [facility] RN Member Role: Primary Care Nurse Name: Kwan Mills RN Position: [facility] ED RN W/OE and Tasks Member Role: Primary Care Nurse Name: Ange Patel Position: [facility] RN Member Role: Primary Care Nurse Name: Ingrid Verdugo RN Position: [facility] RN Member Role: Primary Care Nurse Name: Terra Fishman RN Position: [facility] RN Member Role: Primary Care Nurse Name: Monica Rowell RN Position: [facility] RN Member Role: Primary Care Nurse Name: Anita Hodges RN Position: S RN Member Role: Primary Care Nurse Name: Jimi Fitzpatrick RN Position: S RN Member Role: Primary Care Nurse Care Team Related Persons Name: RAULITO MARLEN Address: home [address] [place], [place] Name: DUCBRIANWUMARLEN Address: [address] Name: NICK CABEZAS Name: GEMA CABEZAS Address: home [address] [place] [address] Name: ELTON CHENG Address: [address] [address] Name: LAURO QUEVEDO
--- OUTSIDE RECORDS SUMMARY | 2024-04-13 03:48 | XMS_ITS | Continuity of Care Document ---
Author Organization [facility] Address [address] [place] [address]- Care Team Providers Care Clockmaker Name Role Phone Jany Baig DO Primary Care Physician Encounter [facility] Date(s): 12/15/23 - 01/14/24 [facility] [address] [place] [address]- Allergies, Adverse Reactions, Alerts Substance Reaction Severity [...] Nikhil rded influenza virus vaccine, inactivated 02/12/18 Nkihil rded influenza virus vaccine, inactivated 2 04/29/17 [...] n 1Result Comment: [facility]: [id number] 2Result Comment: [04/29/2017] [id number] 3Admin Note: FLUARIX 4Admin Note: 3 RDINJ 5Admin Note: #2 Medications Aldactone 25 mg oral tablet 25 mg, 1, tablet, By Mouth, Daily, # 30 tablet, Refills 0, Tot. Refills 0, Maintenance, 01/06/24 15:25:00 EDT, Route to Pharmacy Electronically, [facility], Partial fill upon patient request if the prescription is for a schedule II opioi... Start Date: 01/06/24 Stop Date: 02/05/24 Status: Ordered Bactrim DS 800 mg-160 mg oral tablet 1 tablet, By Mouth, 2 times a day, for 30 days, # 60 tablet, 5 Refills, Acute 06/14/24 6:34:00 EST,12/17/23 6:34:00 EDT, Tablet, [facility], Partial fill upon patient request if [...] 07/28/23 12:08:00 EST, Route to Pharmacy Electronically, [facility], 175, cm, 07/28/23 9:11:00 EST, Height, [...] 07/28/23 12:09:00 EST, Route to Pharmacy Electronically, [facility] [...] 01/06/24 15:25:00 EDT, Route to Pharmacy Electronically, [facility], Partial fill upon patient request if [...] tablet, 5 Refills, Maintenance, 05/06/23 19:16:00 EST, [facility], 30, TAKE 1 TABLET BY MOUTH ONCE A DAY^1R1, 175, cm, 03/22/23 6:50:00 EDT, Height, 77.5,kg, 03/20/23 11:30:00 EDT, Dry Weight Start Date: 05/06/23 Status: Ordered Vitamin B1 100 mg oral tablet 1, tablet, By Mouth, Daily, # 90 tablet, Refills 3, Tot. Refills 3, Maintenance, 07/28/23 12:12:00 EST, Route to Pharmacy Electronically, [facility], 175, cm, 07/28/23 9:11:00 EST, Height, 61.3, kg, 07/12/23 23:27:00 EST, Dry Weight Start Date: 07/28/23 Status: Ordered Vitamin B6 50 mg oral tablet 1, tablet, By Mouth, Daily, R1., # 90 tablet, Refills 4, Tot. Refills 4, Maintenance, 07/28/23 12:11:00 EST, Route to Pharmacy Electronically, [facility], 175, cm, 07/28/23 9:11:00 EST, Height, [...] Care Nurse Name: Estela Martinez RN Position: [facility] [...] Care Nurse Name: Jean Epstein RN Position: [facility] RN Member Role: Primary Care Nurse Name: Maria Esther Craig LPN Position: [facility] RN Member Role: Primary Care Nurse Name: Kaye Comer RN Position: [facility] RN Member Role: Primary Care Nurse Name: Kenyatta Kirby RN Position: [facility] RN Member Role: Primary Care Nurse Name: Andres Pressley RN Position: [facility] RN Member Role: Primary Care Nurse Name: Jany Baig DO Position: [facility] Physician - Primary Care Member Role: PCP Address: Address: [address] [place] [address] Adult & [place] [address]- Name: Mary Haines NP Position: [facility] Associate Professional Member Role: Primary Care Nurse Address: Address: [address] [place] [address] Name: Garima Curry RN Position: [facility] RN Member Role: Primary Care Nurse Name: Britney Davis RN Position: [facility] RN Member Role: Primary Care Nurse Name: Malgorzata Austin RN Position: [facility] RN Member Role: Primary Care Nurse Name: Ibeth Adams RN Position: [facility] RN Member Role: Primary Care Nurse Name: Torrie Hernandez RN Position: [facility] OB RN Member Role: Primary Care Nurse Name: Yoselin Jones RN Position: [facility] RN Member Role: Primary Care Nurse Name: Gretchen Knutson RN Position: [facility] SN RN Member Role: Primary Care Nurse Name: Aislinn Mckee RN Position: [facility] RN Member Role: Primary Care Nurse Name: Ashley Mcelroy RN Position: [facility] RN Member Role: Primary Care Nurse Name: Ashok Kevin RN Position: [facility] RN Member Role: Primary Care Nurse Name: Eben Villavicencio RN Position: [facility] RN Member Role: Primary Care Nurse Name: Cody Garcia Position: [facility] Associate Professional Member Role: Lifetime Consulting Provider Address: Address: [address] [place] [address] Name: Paige Nascimento RN Position: [facility] RN Member Role: Primary Care Nurse Name: Kacey Woodard RN Position: [facility] RN Member Role: Primary Care Nurse Name: Sue Combs RN Position: [facility] [...] Role: Lifetime Consulting Physician Address: Address: [address] [place] [address] [address] [facility], [address] Name: Kimberley Pittman RN Position: [facility] RN Member Role: Primary Care Nurse Name: Darlene Rodrigez RN Position: [facility] RN Member Role: Primary Care Nurse Name: Alison Helton RN Position: [facility] RN Member Role: Primary Care Nurse Name: Dixie Duke RN Position: [facility] RN Member Role: Primary Care Nurse Name: Kwan Mills RN Position: [facility] ED RN W/OE and Tasks Member Role: Primary Care Nurse Name: Ange Patel Position: [facility] RN Member Role: Primary Care Nurse Name: Ingrid Verdugo RN Position: [facility] RN Member Role: Primary Care Nurse Name: Terra Fishman RN Position: [facility] RN Member Role: Primary Care Nurse Name: Monica Rowell RN Position: [facility] RN Member Role: Primary Care Nurse Name: Anita Hodges RN Position: [facility] RN Member Role: Primary Care Nurse Name: Jimi Fitzpatrick RN Position: [facility] RN Member Role: Primary Care Nurse Care Team Related Persons Name: MARLEN CABEZAS Address: [address] [place] [address] Name: MARLEN CABEZAS Address: home [address] [place] [address] Name: NICK CABEZAS Name: GEMA CABEZAS Address: home [address] [place] [address] Name: ELTON CHENG Address: home [address] [place] [address] Name: LAURO QUEVEDO
--- OUTSIDE RECORDS SUMMARY | 2024-04-13 03:50 | XMS_ITS | Continuity of Care Document ---
Author Organization [facility] Address [address] [place] [address]- Care Team Providers Care Copy Coordinator Name Role Phone Jany Baig DO Primary Care Physician Encounter [facility] Date(s): 12/17/23 - 01/16/24 [facility] [address] [place] [address]- Allergies, Adverse Reactions, Alerts Substance Reaction Severity [...] Give n 1Result Comment: [facility]: [id number] 2Result Comment: [04/29/2017] [id number] 3Admin Note: FLUARIX 4Admin Note: 3 RDINJ 5Admin Note: #2 Medications Aldactone 25 mg oral tablet 25 mg, 1, tablet, By Mouth, Daily, # 30 tablet, Refills 0, Tot. Refills 0, Maintenance, 01/06/24 15:25:00 EDT, Route to Pharmacy Electronically, [facility], Partial fill upon patient request if the prescription is for a schedule II opioi... Start Date: 01/06/24 Stop Date: 02/05/24 Status: Ordered Bactrim DS 800 mg-160 mg oral tablet 1 tablet, By Mouth, 2 times a day, for 30 days, # 60 tablet, 5 Refills, Acute 06/14/24 6:34:00 EST,12/17/23 6:34:00 EDT, Tablet, [facility], Partial fill upon patient request if [...] 07/28/23 12:08:00 EST, Route to Pharmacy Electronically, [facility], 175, cm, 07/28/23 9:11:00 EST, Height, [...] 07/28/23 12:09:00 EST, Route to Pharmacy Electronically, [facility], 175, cm, 07/28/23 9:11:00 EST, Height, [...] Route to Pharmacy Electronically, [facility] 3, Partial fill upon patient [...] tablet, 5 Refills, Maintenance, 05/06/23 19:16:00 EST, [facility], 30, TAKE 1 TABLET BY MOUTH ONCE A DAY^1R1, 175, cm, 03/22/23 6:50:00 EDT, Height, 77.5,kg, 03/20/23 11:30:00 EDT, Dry Weight Start Date: 05/06/23 Status: Ordered Vitamin B1 100 mg oral tablet 1, tablet, By Mouth, Daily, # 90 tablet, Refills 3, Tot. Refills 3, Maintenance, 07/28/23 12:12:00 EST, Route to Pharmacy Electronically, [facility], 175, cm, 07/28/23 9:11:00 EST, Height, 61.3, kg, 07/12/23 23:27:00 EST, Dry Weight Start Date: 07/28/23 Status: Ordered Vitamin B6 50 mg oral tablet 1, tablet, By Mouth, Daily, R1., # 90 tablet, Refills 4, Tot. Refills 4, Maintenance, 07/28/23 12:11:00 EST, Route to Pharmacy Electronically, [facility], 175, cm, 07/28/23 9:11:00 EST, Height, [...] Care Nurse Name: Estela Martinez RN Position: [facility] [...] Primary Care Member Role: PCP Address: Address: [address] [place] [address] Adult & [place] [address]- Name: Mary Haines NP Position: [facility] Associate Professional Member Role: Primary Care Nurse Address: Address: [address] [place] [address]- Name: Garima Curry RN Position: [facility] RN Member Role: Primary Care Nurse Name: Britney Davis RN Position: [facility] RN Member Role: Primary Care Nurse Name: Malgorzata Austin RN Position: [facility] RN Member Role: Primary Care Nurse Name: Ibeth Adams RN Position: [facility] RN Member Role: Primary Care Nurse Name: Torrie Hernandez RN Position: [facility] OB RN Member Role: Primary Care Nurse Name: Yoselin Jones RN Position: [facility] RN Member Role: Primary Care Nurse Name: Gretchen Knutson RN Position: [facility] SN RN Member Role: Primary Care Nurse Name: Aislinn Mckee RN Position: [facility] RN Member Role: Primary Care Nurse Name: Ashley Mcelroy RN Position: [facility] [...] Member Role: Lifetime Consulting Provider Address: Address: [address] [place] [address] Name: Paige Nascimento RN Position: [facility] RN Member Role: Primary Care Nurse Name: Kacey Woodard RN Position: [facility] [...] Member Role: Lifetime Consulting Physician Address: Address: [address] [place] [address] [address] [facility], [address] Name: Kimberley Pittman RN Position: [facility] RN Member Role: Primary Care Nurse Name: Darlene Rodrigez RN Position: [facility] RN Member Role: Primary Care Nurse Name: Alison Helton RN Position: [facility] RN Member Role: Primary Care Nurse Name: Dixie Duke RN Position: [facility] RN Member Role: Primary Care Nurse Name: Kwan Mills RN Position: [facility] ED RN W/OE and Tasks Member Role: Primary Care Nurse Name: Ange Patel Position: [facility] RN Member Role: Primary Care Nurse Name: Ingrid Verdugo RN Position: [facility] RN Member Role: Primary Care Nurse Name: Terra Fishman RN Position: [facility] RN Member Role: Primary Care Nurse Name: Monica Rowell RN Position: [facility] RN Member Role: Primary Care Nurse Name: Anita Hodges RN Position: [facility] RN Member Role: Primary Care Nurse Name: Jimi Fitzpatrick RN Position: [facility] RN Member Role: Primary Care Nurse Care Team Related Persons Name: DUCBRIANLEONILA WASHBURNARA Address: home [address] [place], [place] Name: MARLEN CABEZAS Address: [address] [place], [place] Name: NICK CABEZAS Name: GEMA CABEZAS Address: home [address] [place] [address] Name: ELTON CHENG Address: home [address] [place] [place] [address] Name: LAURO QUEVEDO
--- OUTSIDE RECORDS SUMMARY | 2024-04-13 03:52 | XMS_ITS | Continuity of Care Document ---
Author Organization [facility] Address [address] [place] [id number]- Care Team Providers Care Inhalation Therapist Name Role Phone Jany Baig DO Primary Care Physician Encounter [facility] Date(s): 12/01/23 - 12/31/23 [facility] [address] [place] [id number]- Allergies, Adverse Reactions, Alerts Substance Reaction Severity [...] Comment: [facility] [place] [id number] 2Result Comment: [04/29/2017] [id number] 3Admin Note: FLUARIX 4Admin Note: 3 RDINJ 5Admin Note: #2 Medications acamprosate 333 mg oral delayed release tablet 2 tablet = 666 mg, By Mouth, 3 times a day, # 180 tablet, 1 Refills, Maintenance, 07/28/23 11:04:00EST, EC Tablet, [facility], Partial fill upon patient request if [...] Acute 06/14/24 6:34:00 EST,12/17/23 6:34:00 EDT, Tablet, [facility], Partial fill upon patient request if [...] 07/28/23 12:08:00 EST, Route to Pharmacy Electronically, [facility], 175, cm, 07/28/23 9:11:00 EST, Height, [...] 07/28/23 12:09:00 EST, Route to Pharmacy Electronically, [facility], 175, cm, 07/28/23 9:11:00 EST, Height, [...] tablet, 5 Refills, Maintenance, 05/06/23 19:16:00 EST, [facility], 30, TAKE 1 TABLET BY [...] 07/28/23 12:12:00 EST, Route to Pharmacy Electronically, [facility], 175, cm, 07/28/23 9:11:00 EST, Height, 61.3, kg, 07/12/23 23:27:00 EST, Dry Weight Start Date: 07/28/23 Status: Ordered Vitamin B6 50 mg oral tablet 1, tablet, By Mouth, Daily, R1., # 90 tablet, Refills 4, Tot. Refills 4, Maintenance, 07/28/23 12:11:00 EST, Route to Pharmacy Electronically, [facility], 175, cm, 07/28/23 9:11:00 EST, Height, 61.3, kg, 07/12/23 23:27:00 EST, Dry Weight Start Date: 07/28/23 Status: Ordered Xifaxan 550 mg oral tablet See Instructions, 1 tablet By Mouth 2 times a day, # 60 each, 5 Refills, Maintenance, 09/30/23 19:11:00 EDT, [facility], 175, cm, 09/24/23 11:09:00 EDT, Height, [...] Team Personnel Name: Shira Galindo RN Position: [facility] RN Member Role: Primary Care Nurse Name: Estela Martinez RN Position: S RN Member Role: Primary Care Nurse Name: Alexandra Colmenares RN Position: [facility] ED RN W/OE and Tasks Member Role: Primary Care Nurse Name: Garima Manzano RN Position: [facility] RN Member Role: Primary Care Nurse Name: Malgorzata Marinelli RN Position: [facility] RN Member Role: Primary Care Nurse Name: Joyce Roach RN Position: [facility] ED RN W/OE and Tasks Member Role: Primary Care Nurse Name: Lucina Peralta RN Position: [facility] RN Member Role: Primary Care Nurse Name: Jean Epstein RN Position: [facility] RN Member Role: Primary Care Nurse Name: Maria Esther Craig LPN Position: [facility] RN Member Role: Primary Care Nurse Name: Kaye Comer RN Position: [facility] RN Member Role: Primary Care Nurse Name: Kenyatta Kirby RN Position: [facility] RN Member Role: Primary Care Nurse Name: Andres Pressley RN Position: [facility] RN Member Role: Primary Care Nurse Name: Jany Baig DO Position: [facility] Physician - Primary Care Member Role: PCP Address: Address: [address] [place] [address] [facility] [address] Name: Mary Haines NP Position: [facility] Associate Professional Member Role: Primary Care Nurse Address: Address: [address] [place] [address] Name: Garima Curry RN Position: [facility] RN Member Role: Primary Care Nurse Name: Malgorzata Austin RN Position: [facility] RN Member Role: Primary Care Nurse Name: Ibeth Adams RN Position: [facility] RN Member Role: Primary Care Nurse Name: Torrie Hernandez RN Position: [facility] OB RN Member Role: Primary Care Nurse Name: Yoselin Jones RN Position: [facility] RN Member Role: Primary Care Nurse Name: Gretchen Knutson RN Position: [facility] SN RN Member Role: Primary Care Nurse Name: Aislinn Mckee RN Position: [facility] RN Member Role: Primary Care Nurse Name: Ashley Mcelroy RN Position: [facility] RN Member Role: Primary Care Nurse Name: Ashok Kevin RN Position: [facility] RN Member Role: Primary Care Nurse Name: Eben Villavicencio RN Position: [facility] RN Member Role: Primary Care Nurse Name: Cody Garcia Position: [facility] Associate Professional Member Role: Lifetime Consulting Provider Address: Address: [address] [place] [address]- [place] Name: Paige Nascimento RN Position: S RN Member Role: Primary Care Nurse Name: Sue Combs RN Position: S RN Member Role: Primary Care Nurse Name: Ge Covarrubias RN Position: S RN Member Role: Primary Care Nurse Name: Orin Elmore RN Position: [facility] ED RN W/OE and Tasks Member Role: Primary Care Nurse Name: Allegra Liu RN Position: [facility] AMB Nurse Member Role: Primary Care Nurse Name: Shayan Pandya MD Position: [facility] Renal MD Member Role: Lifetime Consulting Physician Address: Address: [address] [place] [address] [address] [facility], [place] [address]- Name: Kimberley Pittman RN Position: [facility] RN Member Role: Primary Care Nurse Name: Darlene Rodrigez RN Position: S RN Member Role: Primary Care Nurse Name: Alison Helton RN Position: [facility] RN Member Role: Primary Care Nurse Name: Dixie Duke RN Position: [facility] RN Member Role: Primary Care Nurse Name: Kwan Mills RN Position: [facility] ED RN W/OE and Tasks Member Role: Primary Care Nurse Name: Ingrid Verdugo RN Position: S RN Member Role: Primary Care Nurse Name: Terra Fishman RN Position: [facility] RN Member Role: Primary Care Nurse Name: Monica Rowell RN Position: [facility] RN Member Role: Primary Care Nurse Name: Anita Hodges RN Position: [facility] RN Member Role: Primary Care Nurse Name: Jimi Fitzpatrick RN Position: S RN Member Role: Primary Care Nurse Care Team Related Persons Name: MARLEN CABEZAS Address: [address] [place] [address] Name: DUCBRIANWU MARLEN Address: [address] [place], [place] Name: RAULITO NICK Name: CAWU GEMA Address: [address] [place], [place] Name: ELTON CHENG Address: [address] [place] [address] Name: LAURO QUEVEDO
--- OUTSIDE RECORDS SUMMARY | 2024-04-13 03:56 | XMS_ITS | Continuity of Care Document ---
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 Role Phone Jany Baig DO Primary Care Physician ( [phone] Encounter [facility] [place] Date(s): 01/04/24 - 01/06/[address] [address]- Encounter Diagnosis Hepatic encephalopathy(Final) - 01/04/24 Discharge Disposition: A-D/C Home Attending Physician: Lianne LEE, Dominic Admitting Physician: Delgado Park MD Referring Physician: Not on Staff, Referring [...] acel (oldterm) 08/02/12 Give n 1Result Comment: [facility]: [id number] 2Result Comment: [04/29/2017] [id number] 3Admin Note: FLUARIX 4Admin Note: 3 RDINJ 5Admin Note: #2 Medications Aldactone 25 mg oral tablet 25 mg, 1, tablet, By Mouth, Daily, # 30 tablet, Refills 0, Tot. Refills 0, Maintenance, 01/06/24 15:25:00 EDT, Route to Pharmacy Electronically, [facility], Partial fill upon patient request if the prescription is for a schedule II opioi... Start Date: 01/06/24 Stop Date: 02/05/24 Status: Ordered Bactrim DS 800 mg-160 mg oral tablet 1 tablet, By Mouth, 2 times a day, for 30 days, # 60 tablet, 5 Refills, Acute 06/14/24 6:34:00 EST,12/17/23 6:34:00 EDT, Tablet, [facility], Partial fill upon patient request if [...] 07/28/23 12:08:00 EST, Route to Pharmacy Electronically, [facility], 175, cm, 07/28/23 9:11:00 EST, Height, [...] 07/28/23 12:09:00 EST, Route to Pharmacy Electronically, [facility], 175, cm, 07/28/23 9:11:00 EST, Height, [...] 01/06/24 15:25:00 EDT, Route to Pharmacy Electronically, [facility], Partial fill upon patient request if the prescription is for a schedule II opioid... Start Date: 01/06/24 Stop Date: 02/05/24 Status: Ordered Norvasc 5 mg oral tablet 5 mg, Tablet, By Mouth, 01/06/24 9:00:00 EDT Start Date: 01/06/24 Stop Date: 01/06/24 Status: Completed pantoprazole 40 mg oral delayed [...] tablet, 5 Refills, Maintenance, 05/06/23 19:16:00 EST, [facility], 30, TAKE 1 TABLET BY MOUTH ONCE A DAY^1R1, 175, cm, 03/22/23 6:50:00 EDT, Height, 77.5,kg, 03/20/23 11:30:00 EDT, Dry Weight Start Date: 05/06/23 Status: Ordered Vitamin B1 100 mg oral tablet 1, tablet, By Mouth, Daily, # 90 tablet, Refills 3, Tot. Refills 3, Maintenance, 07/28/23 12:12:00 EST, Route to Pharmacy Electronically, [facility], 175, cm, 07/28/23 9:11:00 EST, Height, 61.3, kg, 07/12/23 23:27:00 EST, Dry Weight Start Date: 07/28/23 Status: Ordered Vitamin B6 50 mg oral tablet 1, tablet, By Mouth, Daily, R1., # 90 tablet, Refills 4, Tot. Refills 4, Maintenance, 07/28/23 12:11:00 EST, Route to Pharmacy Electronically, [facility], 175, cm, 07/28/23 9:11:00 EST, Height, [...] Exam Date Time Procedure Performing Provider Status 01/04/24 1:[address] Head/Brain W/O Contrast Sergio Khan; Auth (Verified) Notes: (CT Head/Brain W/O Contrast) Reason For Exam: AMS;Other: RESULT: CT Head/Brain W/O Contrast CT Head/Brain W/O Contrast INDICATION: AMS unsteady gait, incontinence; Clinical Question(s): Hematoma; TECHNIQUE: Noncontrast head CT using axial technique and reconstructed in axial and coronal planes.Iterative reconstruction techniques are used to optimize dose and image quality. CTDIvol Head: 46.40 mGy, DLP Head: 772 mGy*cm. COMPARISON: Multiple prior CTs, most recently 12/19/2023. FINDINGS: Morgue Technician view findings, lines and tubes: None. BRAIN [...] No fractures or suspicious bony lesions. Mild amount of fluid in the left maxillary sinus. All other paranasal sinuses and mastoid air cellsare clear. Visualized orbits and globes are intact. The extracranial soft tissues are unremarkable. IMPRESSION: No acute intracranial pathology. I have personally reviewed the images and I agree with this report. WSN: [id number] Ordering Physician: Houston Carpenter Dictated By: Sayra Canela MD Dictated Date/Time: 01/04/24 1:46 pm Reviewed By: Gerard Espinal MD Signed By: Gerard Espinal MD Signed Date/Time: 01/04/24 1:51 pm Transcribed By: MIRNA Transcribed Date/Time: 01/04/24 1:41 pm * Exam Date Time Procedure Performing Provider Status 01/04/24 12:32 PM Chest 2 Views Frontal and Lat Luisa Bustillos; Auth (Verified) Notes: (Chest 2 Views Frontal and Lat) Reason For Exam: chest pain;Other: RESULT: Chest 2 Views Frontal and Lat Examination: Chest performed on 01/04/2024. History: Chest pain. Findings: Frontal and lateral views of the chest are compared to a prior study dated 11/05/2023. The cardiac and mediastinal silhouettes are within normal limits. The lungs are clear. Healed left rib fractures are seen. There are embolization coils within the upper abdomen. Impression: There is no acute cardiopulmonary disease. WSN: [id number] Ordering Physician: Houston Carpenter Dictated By: Fide Glover MD Dictated Date/Time: 01/04/24 12:35 p Reviewed By: Fide Glover MD Signed By: Fide Glover MD Signed Date/Time: 01/04/24 12:35 pm Transcribed By: MIRNA Transcribed Date/Time: 01/04/24 12:35 pm Vital Signs Most recent to oldest [Reference Range]: 1 2 3 Height 175.26 cm (01/05/24 8:04 AM) 175.26 cm (01/05/24 2:56 AM) 175.26 cm (01/04/24 7:57 PM) Oxygen Saturation [94-100 %] 100 % (01/06/24 11:00 AM) 99 % (01/06/24 7:00 AM) 100 % (01/06/24 4:00 AM) Pulse Rate [55-90 bpm] 84 bpm (01/06/24 11:00 AM) 85 bpm (01/06/24 9:32 AM) 86 bpm (01/06/24 7:00 AM) Blood Pressure [90-138/55-84 mm Hg] 131/79mm Hg (01/06/24 11:00 AM) 129/62mm Hg (01/06/24 9:32 AM) 129/62mm Hg (01/06/24 9:25 AM) Respiratory Rate [16-30 br/min] 18 br/min (01/06/24 11:00 AM) 17 br/min (01/06/24 9:32 AM) 17 br/min (01/06/24 7:00 AM) Temperature [96.8-100.4 DegF] 97.5 DegF (01/06/24 11:00 AM) 97.9 DegF (01/06/24 7:00 AM) 98.1 DegF (01/06/24 4:00 AM) Mode of Delivery (Oxygen) Room air (01/06/24 11:00 AM) Room air (01/06/24 7:00 AM) Room air (01/06/24 4:00 AM) Blood pressure sites Arm, left (01/06/24 11:00 AM) Arm, left (01/06/24 7:00 AM) Arm, right (01/06/24 4:00 AM) Temperature Route Oral (01/06/24 11:00 AM) Oral (01/06/24 7:00 AM) Oral (01/06/24 4:00 AM) Social History Social History Type Response Smoking Status 10 or more cigarette s (1/2 pack or more)/day in last 30 days entered on: 02/04/19 Sex Male History and physical note * Tiesha LEE, Subhash: PERFORM Event Display: History and Physical Hospital Authored Date: Patient: ??GEMA CABEZAS ? Age:??48 Years?Sex:??Male?:??1975?? Chief Complaint/Reason for Consultation Coming from [place] on section 35, staff reporting iintermittent AMS over the weekend. New unsteady gait, new incontinence, hx of liver cirrhosis. FAST ED score 0. Pt only complaint lethargy. History of Present Illness 48-year-old??male presented to the emergency room today??with altered mental status.?? The patient is currently residing at [facility] under section 35.?? Has not had any alcohol??in the last 13 days.?? He was previously drinking heavily.?? Apparently he became more confused over the last few days??and was unsteady on his feet. ??Consequently he was brought to the ER for evaluation.?? In the ER he was found to have an elevated ammonia level and was given??lactulose earlier today. ??During my evaluation??he feels??back to baseline. ??He is alert and oriented x 3 and appropriate.?? He denies any chest pain, shortness of breath, cough, fever, focal weakness, dysuria.?? Of note he does have a history of a??infected right??hip??prosthesis which became infected and he underwent hardware removal.?? He was subsequently treated with IV vancomycin and transition to Bactrim??which she continues to take. ?? EKG: Sinus rhythm 87 bpm ? RESULT: CT Head/Brain W/O Contrast CT Head/Brain W/O Contrast?? IMPRESSION: No acute intracranial pathology. ?? RESULT: Chest 2 Views Frontal and Lat Examination: Chest performed on 01/04/2024. Impression: There is no acute cardiopulmonary disease. Review of Systems Constitutional:??No weight loss, fever, chills, weakness or fatigue. Eyes:??No visual loss, blurred vision, double vision or yellow sclera ENT:??No hearing loss, sneezing, congestion, runny nose or sore throat. Respiratory:??No shortness of breath, cough or sputum production. Cardiovascular:??No chest pain, chest pressure or chest discomfort. No palpitations or pedal edema. Gastrointestinal:??No anorexia, nausea, vomiting or diarrhea. No abdominal pain or blood in stool. Genitourinary:??No burning micturition. No urinary frequency or incontinence. Neurologic:??No headache, dizziness, syncope, unilateral weakness, ataxia, numbness or tingling in the extremities. No change in bowel or bladder control. Musculoskeletal:??No muscle pain, back pain, joint pain or stiffness. Hematologic/Lymphatics:??No bleeding or bruising. No painful lymph nodes. Skin:??No rash or itching. Endocrine:??No reports of sweating. No cold or heat intolerance. No polyuria or polydipsia. Psychiatric:??No depression or anxiety. Objective Measurements?? Height: 175.26 cm (01/05/24) ?? Vital Signs?? Temperature: 98.6 DegF (01/05/24 02:56:00) Temperature Route: Oral (01/05/24 02:56:00) Pulse Rate: 88 bpm (01/05/24 02:56:00) Respiratory Rate: 20 br/min (01/05/24 02:56:00) Systolic Blood Pressure: 111 mm Hg (01/05/24 02:56:00) Diastolic Blood Pressure: 74 mm Hg (01/05/24 02:56:00) Blood pressure sites: Arm, right (01/05/24 02:56:00) Mean Arterial Pressure: 86 mm Hg (01/05/24 02:56:00) Pulse Pressure: 37 mm Hg (01/05/24 02:56:00) Oxygen Saturation: 100 % (01/05/24 02:56:00) Mode of Delivery (Oxygen): Room air (01/05/24 02:56:00) Early Warning Score: 6 (01/05/24 02:59:53) ? Physical Exam Constitutional: Alert, in no distress. Mental Status: Oriented to person, place and time. Head: Normocephalic. Eyes: Pupils are equal, round and reactive to light. Extraocular muscles intact. Ear, Nose and Throat: Oropharynx clear, mucous membranes moist.?? Neck: Supple, Full range of motion. Respiratory: Clear to auscultation. No wheezing, rales or rhonchi. Cardiovascular: S1 S2 regular. No murmurs, rubs or gallops. Gastrointestinal: Abdomen soft, non-tender, non-distended. Normal bowel sounds.?? Neurologic:??Blind.?? Power 5/5 x 4 Skin: No rashes or lesions. No petechiae or purpura.?? Musculoskeletal: No cyanosis or clubbing. No gross deformities. Normal range of motion. Psychiatric: Normal mood and affect Assessment/Plan Hepatic encephalopathy (K76.82):??. Altered mental status (R41.82):? Clinically improved with extra lactulose Continue scheduled lactulose Check UA to rule out UTI Hold Vistaril and gabapentin this evening ?? Cirrhosis (K74.60):? Continue??Aldactone and Lasix ?? Alcohol use disorder in remission (F10.91):? Currently??section [address] at [place] Has been sober for the last 13 days Continue thiamine ?? 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 Hypertension (I10):? Continue Norvasc ?? Anxiety and depression (F41.9):? Continue paroxetine ?? VTE Prophylaxis:? Heparin subcu ?VTE Prophylaxis Assessment:??VTE Prophylaxis Ordered ?? Code Status:?? Full code Confirmed with patient at bedside ? Patient seen in 01/04/2024 ? Histories Allergies Allergies ?(Active and Proposed [...] side effects ? 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 Social History Patient??currently residing at [facility] section 35 Non-smoker Currently abstinent from alcohol ? Family History Mother: Hypertension Father: Hyperlipidemia; Hypertension Brother: Alcoholism Brother: Alcoholism Pat. Grandfather: Diabetes mellitus type II; Throat cancer? Pat. Grandmother: Hypertension Other: Optic neuropathy (maternal [...] a day Senna?8.6?Milligram?By Mouth?2 times a day Sulfamethoxazole/Trimethoprim (Bactrim DS 800 mg-160 mg oral tablet)?1?tab(s)?By Mouth?2 times a day?for 30?Days Thiamine (Vitamin B1 100 mg oral tablet)?1?tablet?By Mouth?Daily ? Results Recent Labs BLOOD COUNT & DIFF WBC 3.0 k/mm3 (Low)?? 01/05/2024 00:47 RBC 3.34 m/mm3 (Low)?? 01/05/2024 00:47 Hgb 10.0 Gm/dL (Low)?? 01/05/2024 00:47 Hct 30.2 % (Low)?? 01/05/2024 00:47 MCV 90.4 femtoliters ()?? 01/05/2024 00:47 MCH 29.9 pg ()?? 01/05/2024 00:47 MCHC 33.1 g/dL ()?? 01/05/2024 00:47 Platelet Count 84 k/mm3 (Low)?? 01/05/2024 00:47 RDW-SD 49.0 femtoliters (High)?? 01/05/2024 00:47 MPV 11.1 femtoliters ()?? 01/05/2024 00:47 Nucleated RBC (Automated) 0.0 #/100 WBC'S ()?? 01/05/2024 00:47 Abs. NRBC 0.0 k/mm3 ()?? 01/05/2024 00:47 Abs. Neut 1.7 k/mm3 ()?? 01/04/2024 12:54 Abs. Lymph 0.9 k/mm3 ()?? 01/04/2024 12:54 Abs. Elk 0.5 k/mm3 ()?? 01/04/2024 12:54 Abs. Eo 0.1 k/mm3 ()?? 01/04/2024 12:54 Abs. Baso 0.0 k/mm3 ()?? 01/04/2024 12:54 Neut % 52.0 % ()?? 01/04/2024 12:54 Lymph % 27.6 % ()?? 01/04/2024 12:54 Elk % 16.7 % (High)?? 01/04/2024 12:54 Eos % 2.8 % ()?? 01/04/2024 12:54 Baso % 0.6 % ()?? 01/04/2024 12:54 Imm Gran 0.3 % ()?? 01/04/2024 12:54 Abs. Imm Gran 0.0 k/mm3 ()?? 01/04/2024 12:54 ?? CHEM GENERAL Sodium 141 mmol/L ()?? 01/05/2024 00:47 Potassium 4.2 mmol/L ()?? 01/05/2024 00:47 Chloride 114 mmol/L (High)?? 01/05/2024 00:47 Bicarbonate Level 16 mmol/L (Low)?? 01/05/2024 00:47 Anion Gap 11 ()?? 01/05/2024 00:47 Glucose Level 83 mg/dL ()?? 01/04/2024 12:54 BUN 13 mg/dL ()?? 01/05/2024 00:47 Creatinine-Blood 1.01 mg/dL ()?? 01/05/2024 00:47 Estimated GFR Creatinine 91 ML/MIN/1.73 M2 ()?? 01/05/2024 00:47 Calcium, Ionized pH Corrected 1.27 mmol/L ()?? 01/04/2024 12:54 Phosphorus 3.8 mg/dL ()?? 01/04/2024 12:54 Magnesium 2.1 mg/dL ()?? 01/04/2024 12:54 Alkaline Phosphatase 151 units/L (High)?? 01/04/2024 12:54 Lipase 57 units/L ()?? 01/04/2024 12:54 ALT (SGPT) 33 units/L ()?? 01/04/2024 12:54 Bilirubin, Total 0.9 mg/dL ()?? 01/04/2024 12:54 Lactate 1.8 mmol/L ()?? 01/04/2024 12:54 ?? MISC. CHEMISTRY Ammonia, Venous 87 ??mole/L (High)?? 01/04/2024 12:54 ?? UA/URINALYSIS Appear/Color, Urine YELLOW ()?? 01/04/2024 23:32 Specific [place], Urine 1.026 ()?? 01/04/2024 23:32 pH, Urine 7.5 ()?? 01/04/2024 23:32 Albumin, Urine TRACE (Abnormal)?? 01/04/2024 23:32 Glucose, Urine NEGATIVE ()?? 01/04/2024 23:32 Ketones, Urine TRACE (Abnormal)?? 01/04/2024 23:32 Bilirubin, Urine NEGATIVE ()?? 01/04/2024 23:32 Hemoglobin, Urine NEGATIVE ()?? 01/04/2024 23:32 Nitrite, Urine NEGATIVE ()?? 01/04/2024 23:32 Leukocyte, Urine NEGATIVE ()?? 01/04/2024 23:32 Urobilinogen 2 mg/dL (Abnormal)?? 01/04/2024 23:32 WBC's, Urine <1 /HPF ()?? 01/04/2024 23:32 RBC's, Urine 1 /HPF ()?? 01/04/2024 23:32 Mucus SLIGHT /LPF ()?? 01/04/2024 23:32 ? EKG study * Event Display: ECG 12-Lead Authored Date: Please click on pdf link to open report * Event Display: ECG 12-Lead Authored Date: Ventricular Rate: 87 BPM Atrial Rate: 87 BPM P-R Interval: 162 ms QRS Duration: 80 ms Q-T Interval: 404 ms QTC Calculation(Bazett): 486 ms P [place]: 10 degrees R [place]: 23 degrees T [place]: 29 degrees Normal sinus rhythm Prolonged QT Abnormal ECG When compared with ECG of 19-DEC-2023 19:34, No significant change was found Confirmed by Jean Vines ([id number]) on 01/04/2024 12:31:49 PM [place]: [facility] Progress note * Marilin LEE, Kevyn House: PERFORM Event Display: Progress Note Hospital Authored Date: [id number] Patient: ??GEMA CABEZAS ? Age:??48 Years?Sex:??Male?:??1975?? Subjective Seen and examined More awake today, but still looks lethargic ?? Review of Systems Constitutional: No fever or chills. ENT: No sore throat or nasal congestion. Respiratory: No shortness of breath or cough??. Cardiovascular: No chest pain or??palpitation. Gastrointestinal: No nausea, vomiting or diarrhea. Skin: No rash or lesion Neurology: No speech problem no vision problem no focal weakness, no dizziness. Psychiatric: Cooperative, normal mood and affect Objective ?? Physical Exam Awake, alert, oriented Lungs: Clear to auscultation bilateral, no wheezing no rales Heart: Regular rate and rhythm, no murmur, no rub or gallop Abdomen: Soft, nontender, nondistended; Bowel sounds present Extremity: No edema cyanosis clubbing Neurological: No focal deficit Psychiatric: Normal mood and affect Assessment/Plan Assessment:??48 y/o male presented to the emergency room today??with altered mental status.??The patient is currently residing at [facility] under section 35.??Has not had any alcohol??in the last 13 days.??He was previously drinking heavily.??Apparently he became more confused over the last few days??and was unsteady on his feet. admitted for hepatic encephalopathy ?? Hepatic encephalopathy (K76.82):??. Altered mental status (R41.82):? UTI ruled out ?? Clinically improving with extra lactulose ?? Plan: Continue scheduled lactulose Resume??Vistaril and gabapentin ? Cirrhosis (K74.60):? Continue??Aldactone and Lasix ?? Alcohol use disorder in remission (F10.91):? Currently??[address] at [facility] Has been sober for the last 13 days Continue thiamine ?? 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 Hypertension (I10):? Continue Norvasc ?? Anxiety and depression (F41.9):? Continue paroxetine ?? VTE Prophylaxis:?Heparin subcu ? Code Status:??Full code ? Disp: Likely d/c tomorrow if remains stable ? Discharge Planning:? * Mary Orozco RN: PERFORM, SIGN, VERIFY Event Display: Progress Note Hospital Authored Date: Patient: GEMA CABEZAS Age: 48 years Sex: Male : 1975 Associated Diagnoses: None Author: Mary Orozco RN Findings Problem Related to Alteration in Psychosocial : Alteration in Psychosocial Function/new 01/04/2024 19:00 EDT Alteration in Psychosocial Related to Acute Alcohol Withdrawal Goals & Outcomes, Psychosocial Psychosocial support will be provided to Pt/S.O. as needed, Pt will identify stressors leading up to event, Pt will develop plan for sobriety after discharge, Pt will show motivation for recovery, Pt will verbalize ways to prevent relapse Interventions, Psychosocial Assess psychosocial needs, Assess readiness to learn needed lifestyle changes, Assess/monitor level of consciousness, Collaborate with provider for psychiatric consult, Offer support; discuss coping strategies, Provide a calm, supportive environment, Provide information about illness and recovery, Teach pt about the disease of substance abuse, Teach pt alternate ways to deal with stress BH Goals/Interventions, Psychosocial Yes Psychosocial, Problem Start 01/04/2024 19:00 Reviewed Plan with, Psychosocial Patient, Other: guard at bedside Patient Progression, Psychosocial Plan Initiation . Evaluation Patient alert and oriented x4 with guard from facility where he lives at the bedside. Patient has bilateral blindness. Patient on room air, lung sounds clear but diminished. Skin is intact except forlong scar on right hip from previous surgery. Patient has seizure precautions in place, patient instructed on use of call rivera in hand. Will continue to monitor.. Note * Geoffrey LOUIE, Melody Loco: PERFORM Event Display: Discharge/Transfer Note Hospital Authored Date: Nursing Discharge Note Entered On: 01/06/2024 15:40 EDT Performed On: 01/06/2024 15:39 EDT by Melody Hale RN Nursing Discharge Note 2 Discharge Time : 01/06/2024 16:21 EDT Melody Hale RN - 01/06/2024 16:24 EDT Discharge Level of Care at Discharge : [facility]it[facility] Patient Left Unit Via : Wheelchair Patient Accompanied Off Unit with : Responsible adult DC Instructions Provided & Signed by Pt : Yes Patient Understands D/C Instructions : Yes Patient Instructions Discharge Signed : Yes Did Pt have Specialty Bed or Wound Vac : No Melody Hale RN - 01/06/2024 15:39 EDT * Lianne LEE, Dominic: PERFORM Event Display: Discharge/Transfer Note Hospital Authored Date: [id number] Patient: ??GEMA CABEZAS ? Age:??48 Years?Sex:??Male?:??1975?? Patient Information Discharge Location: Primary Care Physician: Jany Baig DO Admit Date/Time: 01/04/24 15:58 Discharge Disposition Discharge Disposition: ?? 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 Pantoprazole (pantoprazole 40 mg oral delayed release tablet)?1?tab(s)?By Mouth?Daily?^1R1. Paroxetine (PARoxetine 20 mg oral tablet)?20?Milligram?1?tablet?By Mouth?Daily Maite Polyethylene Glycol 3350 (polyethylene glycol 3350 oral powder for reconstitution)?17?gram?By Mouth?Daily?dissolve in 4 to 8 oz of beverage Pyridoxine (Vitamin B6 50 mg oral tablet)?1?tablet?By Mouth?Daily?R1. Senna?8.6?Milligram?By Mouth?2 times a day Simethicone?80?Milligram?By Mouth?3 times a day Sodium Biphosphate-Sodium Phosphate (Fleet Enema 19 gm-7 gm rectal enema)?1?Each?Rectally?Daily?as needed?for constipation Sodium Chloride (Saljet Sterile 0.9% irrigation solution)?See Instructions?Use for wound care, delayed wound Right hip. T14.8XXD Spironolactone (Aldactone 25 mg oral tablet)?25?Milligram?1?tablet?By Mouth?Daily?for 30?Days Sulfamethoxazole/Trimethoprim (Bactrim DS 800 mg-160 mg oral tablet)?1?tab(s)?By Mouth?2 times a day?for 30?Days Thiamine (Vitamin B1 100 mg oral tablet)?1?tablet?By Mouth?Daily Ubiquinone (Coenzyme Q10 100 mg oral capsule)?2?capsule?200?Milligram?By Mouth?Daily at bedtime ? Medications Started Aldactone Medications Discontinued None Doses Changed None Allergies Allergies ?(Active and [...] had GI side effects ? PCP Follow-Up/Heads-Up Further management of??alcoholic hepatitis Future Appointments Wednesday 12:40 PM EDT ?? With: Ryley LEE, Elias House Where: [facility] [address] [place] [address]- Status: Pending Hospital Course ??48 y/o male presented to the emergency room today??with altered mental status.??The patient is currently residing at [facility] under section 35.??Has not had any alcohol??in the last 13 days.??Hewas previously drinking heavily.??Apparently he became more confused over the last few days??and was unsteady on his feet. admitted for hepatic encephalopathy. ??Patient has significant improvement with lactulose. ??Patient interested to go back to [facility] ?? Hepatic encephalopathy (K76.82):??. Altered mental status (R41.82):? UTI ruled out ?? Patient with significant improvement regarding mentation -Follow-up added on TSH -Blood culture negative??for 24 hours, follow-up final report -Continue scheduled lactulose -Resume??Vistaril and gabapentin ? Cirrhosis (K74.60):?Continue??Aldactone and Lasix ?? Alcohol use disorder in remission (F10.91):? Currently??section 35 at [place] Has been sober for the last 13 days Continue thiamine ?? 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 Continue Bactrim for suppressive therapy Hypertension (I10):?Continue Norvasc Anxiety and depression (F41.9):?Continue paroxetine ? Objective Vital Signs?? Temperature: 97.5 DegF (01/06/24 11:00:00) Temperature Route: Oral (01/06/24 11:00:00) Pulse Rate: 84 bpm (01/06/24 11:00:00) Respiratory Rate: 18 br/min (01/06/24 11:00:00) Systolic Blood Pressure: 131 mm Hg (01/06/24 11:00:00) Diastolic Blood Pressure: 79 mm Hg (01/06/24 11:00:00) Blood pressure sites: Arm, left (01/06/24 11:00:00) Pulse Pressure: 52 mm Hg (01/06/24 11:00:00) Oxygen Saturation: 100 % (01/06/24 11:00:00) Mode of Delivery (Oxygen): Room air (01/06/24 11:00:00) Early Warning Score: 8 (01/06/24 11:39:19) ? . Physical Exam General?NAD, AAO HEENT?PERRLA, oropharynx clear, moist mucus membranes Pulm?CTA bilaterally, no wheezes/rhonchi/rales CV?RRR, +S1/S2, no murmurs/rubs GI?Soft, nontender, nondistended, no organomegaly, bowel sounds are present Neuro?Moves all extremities MS?no obvious deformity Psych?Mood appropriate to situation?? Pending Results No Pending Results Follow-Up Appointments Added Follow Up ?Time Frame ?Comments Jovanni BLAS, Jany?3-5 day: call to discuss follow up visit Home Health Face to Face ^HomeHealthFTF Results Discharge Labs BACTERIOLOGY Blood Culture Results Preliminary report ()?? 01/04/2024 12:54 Blood Culture Specimen Source BLOOD ()?? 01/04/2024 12:54 Blood Culture Isolate 1 Comment ()?? 01/04/2024 12:54 Blood Cult 2 Results Preliminary report ()?? 01/04/2024 12:54 Blood Culture 2 Specimen Source BLOOD ()?? 01/04/2024 12:54 Blood Culture 2 Isolate 1 Comment ()?? 01/04/2024 12:54 ?? BLOOD COUNT & DIFF WBC 3.1 k/mm3 (Low)?? 01/05/2024 14:29 RBC 3.85 m/mm3 (Low)?? 01/05/2024 14:29 Hgb 11.6 Gm/dL (Low)?? 01/05/2024 14:29 Hct 35.6 % (Low)?? 01/05/2024 14:29 MCV 92.5 femtoliters ()?? 01/05/2024 14:29 MCH 30.1 pg ()?? 01/05/2024 14:29 MCHC 32.6 g/dL (Low)?? 01/05/2024 14:29 Platelet Count 102 k/mm3 (Low)?? 01/05/2024 14:29 RDW-SD 50.1 femtoliters (High)?? 01/05/2024 14:29 MPV 11.8 femtoliters ()?? 01/05/2024 14:29 Nucleated RBC (Automated) 0.0 #/100 WBC'S ()?? 01/05/2024 14:29 Abs. NRBC 0.0 k/mm3 ()?? 01/05/2024 14:29 Abs. Neut 1.2 k/mm3 (Low)?? 01/05/2024 14:29 Abs. Lymph 1.1 k/mm3 ()?? 01/05/2024 14:29 Abs. Elk 0.6 k/mm3 ()?? 01/05/2024 14:29 Abs. Eo 0.1 k/mm3 ()?? 01/05/2024 14:29 Abs. Baso 0.0 k/mm3 ()?? 01/05/2024 14:29 Neut % 40.2 % (Low)?? 01/05/2024 14:29 Lymph % 36.6 % ()?? 01/05/2024 14:29 Elk % 18.6 % (High)?? 01/05/2024 14:29 Eos % 3.3 % ()?? 01/05/2024 14:29 Baso % 1.0 % ()?? 01/05/2024 14:29 Imm Gran 0.3 % ()?? 01/05/2024 14:29 Abs. Imm Gran 0.0 k/mm3 ()?? 01/05/2024 14:29 ?? CHEM GENERAL Sodium 137 mmol/L ()?? 01/06/2024 00:52 Potassium 4.2 mmol/L ()?? 01/06/2024 00:52 Chloride 109 mmol/L (High)?? 01/06/2024 00:52 Bicarbonate Level 16 mmol/L (Low)?? 01/06/2024 00:52 Anion Gap 12 ()?? 01/06/2024 00:52 Glucose Level 87 mg/dL ()?? 01/06/2024 00:52 BUN 14 mg/dL ()?? 01/06/2024 00:52 Creatinine-Blood 0.86 mg/dL ()?? 01/06/2024 00:52 Estimated GFR Creatinine 105 ML/MIN/1.73 M2 ()?? 01/06/2024 00:52 Calcium 8.9 mg/dL ()?? 01/06/2024 00:52 Calcium, Ionized pH Corrected 1.27 mmol/L ()?? 01/04/2024 12:54 Phosphorus 3.8 mg/dL ()?? 01/04/2024 12:54 Magnesium 2.0 mg/dL ()?? 01/06/2024 00:52 Alkaline Phosphatase 151 units/L (High)?? 01/04/2024 12:54 Lipase 57 units/L ()?? 01/04/2024 12:54 ALT (SGPT) 33 units/L ()?? 01/04/2024 12:54 Bilirubin, Total 0.9 mg/dL ()?? 01/04/2024 12:54 Lactate 1.8 mmol/L ()?? 01/04/2024 12:54 ?? MISC. CHEMISTRY Ammonia, Venous 69 ??mole/L (High)?? 01/05/2024 14:29 ? UA/URINALYSIS Appear/Color, Urine YELLOW ()?? 01/04/2024 23:32 Specific [place], Urine 1.026 ()?? 01/04/2024 23:32 pH, Urine 7.5 ()?? 01/04/2024 23:32 Albumin, Urine TRACE (Abnormal)?? 01/04/2024 23:32 Glucose, Urine NEGATIVE ()?? 01/04/2024 23:32 Ketones, Urine TRACE (Abnormal)?? 01/04/2024 23:32 Bilirubin, Urine NEGATIVE ()?? 01/04/2024 23:32 Hemoglobin, Urine NEGATIVE ()?? 01/04/2024 23:32 Nitrite, Urine NEGATIVE ()?? 01/04/2024 23:32 Leukocyte, Urine NEGATIVE ()?? 01/04/2024 23:32 Urobilinogen 2 mg/dL (Abnormal)?? 01/04/2024 23:32 WBC's, Urine <1 /HPF ()?? 01/04/2024 23:32 RBC's, Urine 1 /HPF ()?? 01/04/2024 23:32 Mucus SLIGHT /LPF ()?? 01/04/2024 23:32 ? Microbiology ?? Blood Culture?? Completed?? Source: Blood Body Site: ?? Collected Dt/Tm: 01/04/2024 12:54 Last Updated Dt/Tm: 01/05/2024 10:11 ?? Blood Culture #2?? Completed?? Source: Blood Body Site: ?? Collected Dt/Tm: 01/04/2024 12:54 Last Updated Dt/Tm: 01/05/2024 10:11 ?? Blood Culture Result?? Completed?? Source: Blood Body Site: ?? Collected Dt/Tm: 01/04/2024 12:54 Last Updated Dt/Tm: 01/05/2024 10:11 ?? Blood Culture 2 Results?? Completed?? Source: Blood Body Site: ?? Collected Dt/Tm: 01/04/2024 12:54 Last Updated Dt/Tm: 01/05/2024 10:11 ? 45 minutes spent on discharge * Geoffrey LOUIE, Melody Loco: PERFORM Event Display: Patient Education/Instruction Authored Date: [id number] Inpatient Adult Discharge Instructions. [address] [address] Name: GEMA CABEZAS : 1975?? Visit: 01/04/2024 15:58?? Current Date: 01/06/2024 15:40 ?? Account: [id number]?? Inpatient Adult Discharge Instructions We would like [...] their families. Surveys are administered by [employer] ?? If further treatment with your primary care physician or another doctor is recommended, it is important for you to keep the appointment. Call your primary care physician or return to the Emergency Department immediately if your condition worsens, fails to improve, or new symptoms develop. If you need to find a doctor, you can call [facility] Link for a referral at [phone] or toll free at [phone]) or log in to [email or web address].. ?? [facility], in keeping with [facility] guidance, no longer requires face masks for [...] a health care sydnie of your choosing. [employer] is a website that allows you to securely view your medical information including your hospital discharge summary, office visit summaries, medications and follow-up visits. You can also request appointments, renew medications, and request access to your medical information using a health care sydnie of your choosing, or just ask a question. You can enroll at [email or web address] or register during your next office visit. You have been discharged from [facility], Patient Care Unit: S3??. If you have any questions regarding these instructions, including results of studies pending, afteryou leave, please call us and we will be happy to assist you 04/01. [facility] Your Care Team Attending Physician Dominic Abdalla MD?? Consulting Providers Dominic Abdalla MD?? Discharging Providers Dominic Abdalla MD Reason for Your Visit Coming from [place] on [address], staff reporting iintermittent AMS over the weekend. New unsteady gait, new incontinence, hx of liver cirrhosis. FAST ED score 0. Pt only complaint lethargy.?? Your Diagnosis Alcohol use disorder in remission Altered mental status Altered mental status Anxiety and depression Cirrhosis Hypertension Infection of right prosthetic hip joint Tests Performed Below is a partial list of the tests performed during your hospitalization. You may have had other tests and procedures not included in this list. Please discuss all test results with your provider. Alk Phos ALT Ammonia Venous Basic Metabolic Panel Blood Culture Blood Culture #2 Blood Culture 2 Results Blood Culture Result BUN CBC CBC w/ Differential Creatinine Electrolytes Glucose Level Ionized Calcium Lactate Level Lipase Lytes Magnesium Level Phosphorus Level Total Bilirubin UA CT Head/Brain W/O Contrast XR Chest 2 Views Frontal and Lat ALT?? Add On Lab Order?? Alk Phos?? Ammonia Venous?? BUN?? Basic Metabolic Panel?? Bilirubin Total (Total Bilirubin)?? Blood Culture?? Blood Culture #2?? Blood Culture 2 Results?? Blood Culture Result?? CBC?? CBC w/ Differential?? CT Head/Brain W/O Contrast?? Complete Urinalysis (UA)?? Creatinine?? Electrolytes (Lytes)?? Glucose Level?? Ionized Calcium?? Lactic Acid Level (Lactate Level)?? Lipase?? Magnesium Level?? Phosphorus Level?? TSH?? Chest 2 Views Frontal and Lat (XR Chest 2 Views Frontal and Lat)?? Primary Care Provider Jany Baig DO? Advance Directive Health Care Proxy on File Yes - Health Care Proxy Discharge Vitals Temperature: 97.5 DegF Height: 175.26 cm Pulse Rate: 84 bpm ?? Respiratory Rate: 18 br/min ?? Systolic Blood Pressure: 131 mm Hg ?? Diastolic Blood Pressure: 79 mm Hg ?? Oxygen Saturation: 100 % ?? Studies Pending All studies ordered during this hospital stay have been completed unless listed below. Please discuss all pending results with your provider listed above in these instructions. ?? Add On Lab Order?? TSH?? What to do next Instructions From Your Doctor ?? Orders? 01/06/24 15:27:00 EDT?? Scheduled Follow-Up Appointments Wednesday 12:40 PM EDT ?? With: Ryley LEE, [facility] Where: [facility] Infectious Disease [address] [place] [address]- Status: Pending You Need to Schedule the Following Appointments Follow Up with??Jany Baig DO When:??Within 3-5 day: call to discuss follow up visit Where: ?? Discharge Medications GEMA CABEZAS :1975 Visit Date:01/04/2024 Medications: Please continue your medications until treatment is completed or stopped by your provider. Medications not listed below should be discontinued. Discuss any questions related to medications with your provider. What How Much When Instructions Next Dose New Amlodipine (Norvasc 5 mg oral tablet) 1 tab(s) Oral Daily Duration: 30 Days Pickup at [facility] 3 01/06 tomorrow morning New Spironolactone (Aldactone 25 mg oral tablet) 1 tab(s) Oral Daily Duration: 30 Days Pickup at [facility] 3 01/06 tomorrow morning Unchanged Calcium And Vitamin D Combination (calcium (as carbonate)-vitamin D 500 mg-400 intl unitsoral tablet) 1 tab(s) Oral Daily 01/06 tomorrow morning Unchanged Docusate 100 Milligram Oral Twice a day 01/05 tonight Unchanged Fluticasone Nasal (fluticasone 50 mcg/ inh nasal spray) 1 spray(s) Nares, Both Twice a day 01/05 tonight Unchanged Folic Acid (folic acid 1 mg oral tablet) 1 tab(s) Oral Daily ^1R1. ?? 01/06 tomorrow morning Unchanged Furosemide (furosemide 20 mg oral tablet) 1 tab(s) Oral Every other day 01/06 tomorrow morning Unchanged Gabapentin (gabapentin 300 mg oral capsule) 1 capsule Oral Daily at Bedtime note dose/ frequency change ?? 01/05 tonight Unchanged HydrOXYzine (hydrOXYzine hydrochloride 10 mg oral tablet) 2 tab(s) Oral Twice a day as needed for as needed for anxiety as needed Unchanged Lactulose (lactulose 10 gm/ 15 ml oral syrup) 30 Milliliter Oral 3 times a day 01/05 tonight Unchanged Melatonin (melatonin 3 mg oral tablet) 1 tab(s) Oral Daily at Bedtime 01/05 tonight Unchanged Multivitamin (Tab-A-Jesse oral tablet) 1 tab(s) Oral Daily R1. ?? 01/06 tomorrow morning Unchanged Pantoprazole (pantoprazole 40 mg oral delayed release tablet) 1 tab(s) Oral Daily ^1R1. ?? 01/06 tomorrow morning Unchanged Paroxetine (PARoxetine 20 mg oral tablet) 1 tab(s) Oral Daily in the morning 01/06 tomorrow morning Unchanged Polyethylene Glycol 3350 (polyethylene glycol 3350 oral powder for reconstitution) 17 gram Oral Daily dissolve in 4 to 8 oz of beverage ?? 01/06 tomorrow morning Unchanged Pyridoxine (Vitamin B6 50 mg oral tablet) 1 tab(s) Oral Daily R1. ?? 01/06 tomorrow morning Unchanged Senna 8.6 Milligram Oral Twice a day 01/05 tonight Unchanged Simethicone 80 Milligram Oral 3 times a day 01/05 tonight Unchanged Sodium Biphosphate-Sodium Phosphate (Fleet Enema 19 gm-7 gm rectal enema) 1 Each Per rectum Daily as needed for for constipation as needed Unchanged Sodium Chloride (Saljet Sterile 0.9% irrigation solution) See instructions Use for wound care, delayed wound Right hip. T14.8XXD ?? if needed Unchanged Sulfamethoxazole/ Trimethoprim (Bactrim DS 800 mg-160 mg oral tablet) 1 tab(s) Oral Twice a day Duration: 30 Days 01/05 tonight Unchanged Thiamine (Vitamin B1 100 mg oral tablet) 1 tab(s) Oral Daily 01/06 tomorrow morning Unchanged Ubiquinone (Coenzyme Q10 100 mg oral capsule) 2 capsule Oral Daily at Bedtime 01/05 tonight Pharmacy Information [facility]: [address], [place] [id number] [phone] ?? What How Much When Comments Stop Taking Acamprosate (acamprosate 333 mg oral delayed release tablet) 2 tab(s) Oral 3 times a day Duration: 30 Days Stop Taking Acetaminophen 650 Milligram Oral Every 4 hours as needed for as needed Stop Taking Baclofen (baclofen 10 mg oral tablet) 1 tab(s) Oral 3 times a day Stop Taking Enoxaparin 40 Milligram Subcutaneous Injection Daily At least 2 weeks. According to ambulation ?? Stop Taking Magnesium Oxide (magnesium oxide 400 mg oral tablet) 1 tab(s) Oral Daily Stop Taking Rifaximin (Xifaxan 550 mg oral tablet) See instructions 1 tablet By Mouth 2 times a day ?? Stop Taking Trazodone (traZODone 100 mg oral tablet) 1 tab(s) Oral Daily at Bedtime Stop Taking Vancomycin (vancomycin 1.25 g intravenous injection) 1,500 Milligram IV Piggyback Every 12 hours 6 W from ?? Prescription Given During Visit Amlodipine (Norvasc 5 mg oral tablet) - 1 tablet = 5 mg, By Mouth, Daily, # 30 tablet, 0 Refills, [facility], [address] [place] [address] [phone]?? Spironolactone (Aldactone 25 mg oral tablet) - 1 tablet = 25 mg, By Mouth, Daily, # 30 tablet, 0 Refills, [facility], [address] [place] [phone]?? Laboratory Results Below is a partial list of the most recent Laboratory test results done prior to this discharge. You may have had other tests and procedures not included in this list. Please discuss all test resultswith your provider. Alk Phos (01/04/2024) ???Alkaline Phosphatase - 151 units/L ALT (01/04/2024) ???ALT (SGPT) - 33 units/L Ammonia Venous (01/05/2024) ???Ammonia, Venous - 69 ??mole/L Basic Metabolic Panel (01/06/2024) ???Sodium - 137 mmol/L???Potassium - 4.2 mmol/L???Chloride - 109 mmol/L???Bicarbonate Level - 16 mmol/L???Anion Gap - 12???Glucose Level - 87 mg/dL???BUN - 14 mg/dL???Creatinine-Blood - 0.86 mg/dL???Estimated GFR Creatinine - 105 ML/MIN/1.73 M2???Calcium - 8.9 mg/dL Blood Culture (01/04/2024) ???Blood Culture Results - Preliminary report???Blood Culture Specimen Source - BLOOD Blood Culture #2 (01/04/2024) ???Blood Cult 2 Results - Preliminary report???Blood Culture 2 Specimen Source - BLOOD Blood Culture 2 Results (01/04/2024) ???Blood Culture 2 Isolate 1 - Comment Blood Culture Result (01/04/2024) ???Blood Culture Isolate 1 - Comment BUN (01/05/2024) ???BUN - 13 mg/dL CBC (01/05/2024) ???WBC - 3.0 k/mm3???RBC - 3.34 m/mm3???Hgb - 10.0 Gm/dL???Hct - 30.2 %???MCV - 90.4 femtoliters???MCH - 29.9 pg???MCHC - 33.1 g/dL???Platelet Count - 84 k/mm3???RDW-SD - 49.0 femtoliters???MPV - 11.1 femtoliters???Nucleated RBC (Automated) - 0.0 #/100 WBC'S???Abs. NRBC - 0.0 k/mm3 CBC w/ Differential (01/05/2024) ???WBC - 3.1 k/mm3???RBC - 3.85 m/mm3???Hgb - 11.6 Gm/dL???Hct - 35.6 %???MCV - 92.5 femtoliters???MCH - 30.1 pg???MCHC - 32.6 g/dL???Platelet Count - 102 k/mm3???RDW-SD - 50.1 femtoliters???MPV - 11.8 femtoliters???Nucleated RBC (Automated) - 0.0 #/100 WBC'S???Abs. NRBC - 0.0 k/mm3???Abs. Neut - 1.2 k/mm3???Abs. Lymph - 1.1 k/mm3???Abs. Elk - 0.6 k/mm3???Abs. Eo - 0.1 k/mm3???Abs. Baso - 0.0 k/mm3???Neut % - 40.2 %???Lymph % - 36.6 %???Elk % - 18.6 %???Eos % - 3.3 %???Baso % - 1.0 %???Imm Gran - 0.3 %???Abs. Imm Gran - 0.0 k/mm3 Creatinine (01/05/2024) ???Creatinine-Blood - 1.01 mg/dL???Estimated GFR Creatinine - 91 ML/MIN/1.73 M2 Electrolytes (01/04/2024) ???Sodium - 140 mmol/L???Potassium - 4.5 mmol/L???Chloride - 110 mmol/L???Bicarbonate Level - 17 mmol/L???Anion Gap - 13 Glucose Level (01/04/2024) ???Glucose Level - 83 mg/dL Ionized Calcium (01/04/2024) ???Calcium, Ionized pH Corrected - 1.27 mmol/L Lactate Level (01/04/2024) ???Lactate - 1.8 mmol/L Lipase (01/04/2024) ???Lipase - 57 units/L Lytes (01/05/2024) ???Sodium - 141 mmol/L???Potassium - 4.2 mmol/L???Chloride - 114 mmol/L???Bicarbonate Level - 16 mmol/L???Anion Gap - 11 Magnesium Level (01/06/2024) ???Magnesium - 2.0 mg/dL Phosphorus Level (01/04/2024) ???Phosphorus - 3.8 mg/dL Total Bilirubin (01/04/2024) ???Bilirubin, Total - 0.9 mg/dL UA (01/04/2024) ???Appear/Color, Urine - YELLOW???Specific [place], Urine - 1.026???pH, Urine - 7.5???Albumin, Urine - TRACE???Glucose, Urine - NEGATIVE???Ketones, Urine - TRACE???Bilirubin, Urine - NEGATIVE???Hemoglobin, Urine - NEGATIVE???Nitrite, Urine - NEGATIVE???Leukocyte, Urine - NEGATIVE???Urobilinogen - 2mg/dL? ?WBC's, Urine - <1 /HPF? ?RBC's, Urine - 1 /HPF? ?Mucus - SLIGHT You will be contacted within 72 hours with your results. Allergies (NKA means No Known Allergies) NSAIDs [...] apnea)?? Overweight?? Pancytopenia?? Patellar contusion, seen by [facility] spring 2015?? Postoperative wound infection of right hip?? Vitamin D insufficiency?? Education Materials Below is the list of Educational Leaflet Providered with your Discharge Instructions. Valuables and Belongings I fully understand and agree that [facility] accepts no responsibility for [...] patient Date for Pt to Sign Valuables/Belongings: 01/05/24 15:39:00 ?? Other Discharge Information ? Case Management Discharge Plan?? Discharge Plan?? Discharge Level of Care at Discharge: Correction Fac/Police/Penitentiary ?? Pulmonary Rehab Status?? Pulmonary Rehab Discharge [...] are strongly encouraged to quit. Please call [facility] Link at [phone] or [phone] [phone]) or log in to [email or web address] for referrals to smoking cessation programs. ?? 409 Suicide & Crisis Lifeline is available 04/01 if you or someone you know needs to find a reason to keep living. By calling 953 you'll be connected to a skilled, trained counselor at a crisis center in your area. INPATIENT DISCHARGE INSTRUCTIONS SIGNATURE PAGE CAWU GEMA Location:[facility] Registration Date and Time:01/04/2024 15:58 EDT Primary Care Physician: Jany Baig DO, Attending Physician: Lianne LEE, [facility], I GEMA CABEZAS, have received the above patient education materials/instructions and have verbalized understanding. If ambulance or transport services are being used I further acknowledge being given a choice of service. ?? If you need to contact me, please call me at this number: . Patient/Knot Borer Name: Patient/Knot Borer Signature: Relationship to Patient: Witness Name/Signature: Date: Patient Care team information Care Team [...] Care Nurse Name: Joyce Roach RN Position: [facility] RN W/OE and Tasks Member Role: Primary Care Nurse Name: Lucina Peralta RN Position: [facility] RN Member Role: Primary Care Nurse Name: Jean Epstein RN Position: [facility] RN Member Role: Primary Care Nurse Name: Maria Esther Craig LPN Position: [facility] RN Member Role: Primary Care Nurse Name: Kaye Comer RN Position: [facility] RN Member Role: Primary Care Nurse Name: Kenyatta Kirby RN Position: [facility] RN Member Role: Primary Care Nurse Name: Andres Pressley RN Position: [facility] RN Member Role: Primary Care Nurse Name: Jany Baig DO Position: [facility] Physician - Primary Care Member Role: PCP Address: Address: [address] [place] [address] Adult & [place] [address]- Name: Mary Haines NP Position: [facility] Associate Professional Member Role: Primary Care Nurse Address: Address: [address] [place] [address]- Name: Garima Curry RN Position: [facility] RN Member Role: Primary Care Nurse Name: Britney Davis RN Position: [facility] RN Member Role: Primary Care Nurse Name: Malgorzata Austin RN Position: [facility] RN Member Role: Primary Care Nurse Name: Ibeth Adams RN Position: [facility] RN Member Role: Primary Care Nurse Name: Torrie Hernandez RN Position: [facility] OB RN Member Role: Primary Care Nurse Name: Yoselin Jones RN Position: [facility] RN Member Role: Primary Care Nurse Name: Gretchen Knutson RN Position: [facility] SN RN Member Role: Primary Care Nurse Name: Aislinn Mckee RN Position: [facility] RN Member Role: Primary Care Nurse Name: Ashley Mcelroy RN Position: [facility] RN Member Role: Primary Care Nurse Name: Ashok Kevin RN Position: [facility] RN Member Role: Primary Care Nurse Name: Eben Villavicencio RN Position: [facility] RN Member Role: Primary Care Nurse Name: Cody Garcia Position: [facility] Associate Professional Member Role: Lifetime Consulting Provider Address: Address: [address] [place] [address]- Name: Paige Nascimento RN Position: [facility] RN Member Role: Primary Care Nurse Name: Kacey Woodard RN Position: [facility] RN Member Role: Primary Care Nurse Name: Sue Combs RN Position: [facility] RN Member Role: Primary Care Nurse Name: Ge Covarrubias RN Position: [facility] RN Member Role: Primary Care Nurse Name: Orin Elmore RN Position: [facility] ED RN W/OE and Tasks Member Role: Primary Care Nurse Name: Allegra Liu RN Position: [facility] AMB Nurse Member Role: Primary Care Nurse Name: Shayan Pandya MD Position: [facility] Renal MD Member Role: Lifetime Consulting Physician Address: Address: [address] [place] [address] [address] [facility], [place], [place] [address] Name: Kimberley Pittman RN Position: [facility] RN Member Role: Primary Care Nurse Name: Darlene Rodrigez RN Position: [facility] RN Member Role: Primary Care Nurse Name: Alison Helton RN Position: [facility] RN Member Role: Primary Care Nurse Name: Dixie Duke RN Position: [facility] RN Member Role: Primary Care Nurse Name: Kwan Mills RN Position: [facility] ED RN W/OE and Tasks Member Role: Primary Care Nurse Name: Ange Patel Position: [facility] RN Member Role: Primary Care Nurse Name: Ingrid Verdugo RN Position: [facility] RN Member Role: Primary Care Nurse Name: Terra Fishman RN Position: [facility] RN Member Role: Primary Care Nurse Name: Monica Rowell RN Position: [facility] RN Member Role: Primary Care Nurse Name: Anita Hodges RN Position: [facility] RN Member Role: Primary Care Nurse Name: Jimi Fitzpatrick RN Position: [facility] RN Member Role: Primary Care Nurse Care Team Related Persons Name: MARLEN CABEZAS Address: [address] [place] [address] Name: DUCBRIANUW MARLEN Address: [address] [place] [address] Name: RAULITO NICK Name: DUCBRIANWU GEMA Address: home [address] [place] [address] Name: ELTON CHENG Address: [address] [place] [address] Name: LAURO QUEVEDO
--- OUTSIDE RECORDS SUMMARY | 2024-04-13 03:57 | XMS_ITS | Continuity of Care Document ---
Author Organization [facility] Address [address] [place] [address]- Care Team Providers Care Timekeeper Supervisor Name Role Phone Jany Baig DO Primary Care Physician Encounter [facility] Date(s): 10/05/23 - 02/02/24 [facility] [address] [place] [address]- Attending Physician: Jany Baig DO Allergies, Adverse [...] Comment: [facility]: [id number] 2Result Comment: [04/29/2017] 12900-668-00 3Admin Note: FLUARIX 4Admin Note: 3 RDINJ 5Admin Note: #2 Medications Aldactone 25 mg oral tablet 25 mg, 1, tablet, By Mouth, Daily, # 30 tablet, Refills 0, Tot. Refills 0, Maintenance, 01/06/24 15:25:00 EDT, Route to Pharmacy Electronically, [facility] 3, Partial fill upon patient request if the prescription is for a schedule II opioi... Start Date: 01/06/24 Stop Date: 02/05/24 Status: Ordered Bactrim DS 800 mg-160 mg oral tablet 1 tablet, By Mouth, 2 times a day, for 30 days, # 60 tablet, 5 Refills, Acute 06/14/24 6:34:00 EST,12/17/23 6:34:00 EDT, Tablet, [facility], Partial fill upon patient request if [...] 12:08:00 EST, Route to Pharmacy Electronically, [facility], 175, cm, 07/28/23 9:11:00 EST, Height, 61.3, kg, 07/12/23 23:27:00 EST, Dry Weight Start Date: 07/28/23 Status: Ordered furosemide 20 mg oral tablet 20 mg, 1, tablet, By Mouth, Every other day, # 30 tablet, Refills 1, Tot. Refills 1, Maintenance, 07/28/23 12:08:00 EST, Route to Pharmacy Electronically, [facility], Partial fill upon patient request if the prescription is for a schedule II... Start Date: 07/28/23 Status: Ordered gabapentin 300 mg oral capsule 300 mg, 1, capsule, By Mouth, Daily at bedtime, note dose/frequency change, # 30 capsule, Refills 1, Tot. Refills 1, Maintenance, 07/28/23 12:09:00 EST, Route to Pharmacy Electronically, [facility], 175, cm, 07/28/23 9:11:00 EST, Height, [...] 01/06/24 15:25:00 EDT, Route to Pharmacy Electronically, [facility] 3, Partial fill upon patient request [...] tablet, 5 Refills, Maintenance, 05/06/23 19:16:00 EST, [facility], 30, TAKE 1 TABLET BY MOUTH ONCE A DAY^1R1, 175, cm, 03/22/23 6:50:00 EDT, Height, 77.5,kg, 03/20/23 11:30:00 EDT, Dry Weight Start Date: 05/06/23 Status: Ordered Vitamin B1 100 mg oral tablet 1, tablet, By Mouth, Daily, # 90 tablet, Refills 3, Tot. Refills 3, Maintenance, 07/28/23 12:12:00 EST, Route to Pharmacy Electronically, [facility], 175, cm, 07/28/23 9:11:00 EST, Height, 61.3, kg, 07/12/23 23:27:00 EST, Dry Weight Start Date: 07/28/23 Status: Ordered Vitamin B6 50 mg oral tablet 1, tablet, By Mouth, Daily, R1., # 90 tablet, Refills 4, Tot. Refills 4, Maintenance, 07/28/23 12:11:00 EST, Route to Pharmacy Electronically, [facility], 175, cm, 07/28/23 9:11:00 EST, Height, [...] Team Personnel Name: Shira Galindo RN Position: [facility] RN Member Role: Primary Care Nurse Name: Estela Martinez RN Position: [facility] RN Member Role: Primary Care Nurse Name: Alexandra Colmenares RN Position: [facility] ED RN W/OE and Tasks Member Role: Primary Care Nurse Name: Garima Manzano RN Position: [facility] RN Member Role: Primary Care Nurse Name: Malgorzata Marinelli RN Position: [facility] RN Member Role: Primary Care Nurse Name: Joyce Roach RN Position: [facility] ED RN W/OE and Tasks Member Role: Primary Care Nurse Name: Lucina Peralta RN Position: [facility] RN Member Role: Primary Care Nurse Name: Jean Epstein RN Position: [facility] RN Member Role: Primary Care Nurse Name: Maria Esther Craig LPN Position: [facility] RN Member Role: Primary Care Nurse Name: Kaye Comer RN Position: [facility] RN Member Role: Primary Care Nurse Name: Kenyatta Kirby RN Position: [facility] RN Member Role: Primary Care Nurse Name: Andres Pressley RN Position: [facility] RN Member Role: Primary Care Nurse Name: Jany Baig DO Position: [facility] Physician - Primary Care Member Role: PCP Address: Address: [address] [place] [address] [facility] [address] Name: Mary Haines NP Position: [facility] Associate Professional Member Role: Primary Care Nurse Address: Address: [address] [place] [address] Name: Garima Curry RN Position: [facility] RN Member Role: Primary Care Nurse Name: Britney Davis RN Position: [facility] RN Member Role: Primary Care Nurse Name: Malgorzata Austin RN Position: [facility] RN Member Role: Primary Care Nurse Name: Ibeth Aadms RN Position: [facility] RN Member Role: Primary Care Nurse Name: Torrie Hernandez RN Position: [facility] OB RN Member Role: Primary Care Nurse Name: Yoselin Jones RN Position: [facility] RN Member Role: Primary Care Nurse Name: Gretchen Knutson RN Position: [facility] SN RN Member Role: Primary Care Nurse Name: Aislinn Mckee RN Position: [facility] RN Member Role: Primary Care Nurse Name: Ashley Mcelroy RN Position: [facility] RN Member Role: Primary Care Nurse Name: Ashok Kevin RN Position: [facility] RN Member Role: Primary Care Nurse Name: Eben Villavicencio RN Position: [facility] RN Member Role: Primary Care Nurse Name: Cody Garcia Position: [facility] Associate Professional Member Role: Lifetime Consulting Provider Address: Address: [address] [place] [address] Name: Paige Nascimento RN Position: [facility] RN Member Role: Primary Care Nurse Name: Kacey Woodard RN Position: [facility] RN Member Role: Primary Care Nurse Name: Sue Combs RN Position: [facility] RN Member Role: Primary Care Nurse Name: Ge Covarrubias RN Position: [facility] RN Member Role: Primary Care Nurse Name: Orin Elmore RN Position: [facility] ED RN W/OE and Tasks Member Role: Primary Care Nurse Name: Allegra Liu RN Position: [facility] AMB Nurse Member Role: Primary Care Nurse Name: Shayan Pandya MD Position: [facility] Renal MD Member Role: Lifetime Consulting Physician Address: Address: [address] [place] [address] [address] [facility] [place], [place] [address]- Name: Kimberley Pittman RN Position: [facility] RN Member Role: Primary Care Nurse Name: Darlene Rodrigez RN Position: [facility] RN Member Role: Primary Care Nurse Name: Alison Helton RN Position: [facility] RN Member Role: Primary Care Nurse Name: Dixie Duke RN Position: [facility] RN Member Role: Primary Care Nurse Name: Kwan Mills RN Position: [facility] ED RN W/OE and Tasks Member Role: Primary Care Nurse Name: Ange Patel Position: [facility] RN Member Role: Primary Care Nurse Name: Ingrid Verdugo RN Position: [facility] RN Member Role: Primary Care Nurse Name: Terra Fishman RN Position: [facility] RN Member Role: Primary Care Nurse Name: Monica Rowell RN Position: [facility] RN Member Role: Primary Care Nurse Name: Anita Hodges RN Position: [facility] RN Member Role: Primary Care Nurse Name: Jimi Fitzpatrick RN Position: S RN Member Role: Primary Care Nurse Care Team Related Persons Name: CAWUMARLEN Address: [address] [place] [address] Name: MARLEN CABEZAS Address: home [address] [place], [place] Name: NICK CABEZAS Name: GEMA CABEZAS Address: home [address] [place], [place] Name: ELTON CHENG Address: home [address] [place] [id number] Name: LAURO QUEVEDO
--- OUTSIDE RECORDS SUMMARY | 2024-04-13 03:57 | XMS_ITS | Continuity of Care Document ---
Author Organization [facility] Address [address] [place] [address]- Care Team Providers Care Funeral Greeter Name Role Phone Jany Baig DO Primary Care Physician [place] [facility] [place] 02/22/24 - 03/23/24 [facility] [address] [place] [address]- Allergies, Adverse Reactions, Alerts Substance Reaction Severity [...] acel (oldterm) 08/02/12 Give n 1Result Comment: [facility]: [id number] 2Result Comment: [04/29/2017] [id number] 3Admin Note: FLUARIX 4Admin Note: 3 RDINJ 5Admin Note: #2 Medications Aldactone 25 mg oral tablet 25 mg, 1, tablet, By Mouth, Daily, # 30 tablet, Refills 0, Tot. Refills 0, Maintenance, 01/06/24 15:25:00 EDT, Route to Pharmacy Electronically, [facility] 3, Partial fill upon patient request if the prescription is for a schedule II opioi... Start Date: 01/06/24 Stop Date: 02/05/24 Status: Ordered Bactrim DS 800 mg-160 mg oral tablet 1 tablet, By Mouth, 2 times a day, for 30 days, # 60 tablet, 5 Refills, Acute 06/14/24 6:34:00 EST,12/17/23 6:34:00 EDT, Tablet, [facility], Partial fill upon patient request if [...] 07/28/23 12:08:00 EST, Route to Pharmacy Electronically, [facility], 175, cm, 07/28/23 9:11:00 EST, Height, [...] 07/28/23 12:09:00 EST, Route to Pharmacy Electronically, [facility], 175, cm, 07/28/23 9:11:00 EST, Height, [...] 01/06/24 15:25:00 EDT, Route to Pharmacy Electronically, [facility] 3, Partial fill upon patient request if [...] Refills, Maintenance, 05/06/23 19:16:00 EST, [facility], 30, TAKE 1 TABLET BY MOUTH ONCE A DAY^1R1, 175, cm, 03/22/23 6:50:00 EDT, Height, 77.5,kg, 03/20/23 11:30:00 EDT, Dry Weight Start Date: 05/06/23 Status: Ordered Vitamin B1 100 mg oral tablet 1, tablet, By Mouth, Daily, # 90 tablet, Refills 3, Tot. Refills 3, Maintenance, 07/28/23 12:12:00 EST, Route to Pharmacy Electronically, [facility], 175, cm, 07/28/23 9:11:00 EST, Height, 61.3, kg, 07/12/23 23:27:00 EST, Dry Weight Start Date: 07/28/23 Status: Ordered Vitamin B6 50 mg oral tablet 1, tablet, By Mouth, Daily, R1., # 90 tablet, Refills 4, Tot. Refills 4, Maintenance, 07/28/23 12:11:00 EST, Route to Pharmacy Electronically, [facility], 175, cm, 07/28/23 9:11:00 EST, Height, [...] Team Personnel Name: Shira Galindo RN Position: [facility] RN Member Role: Primary Care Nurse Name: Estela Martinez RN Position: [facility] RN Member Role: Primary Care Nurse Name: Alexandra Colmenares RN Position: [facility] ED RN W/OE and Tasks Member Role: Primary Care Nurse Name: Garima Manzano RN Position: [facility] RN Member Role: Primary Care Nurse Name: Malgorzata Marinelli RN Position: [facility] RN Member Role: Primary Care Nurse Name: Joyce Roach RN Position: [facility] ED RN W/OE and Tasks Member Role: Primary Care Nurse Name: Lucina Peralta RN Position: [facility] RN Member Role: Primary Care Nurse Name: Jean Epstein RN Position: [facility] RN Member Role: Primary Care Nurse Name: Maria Esther Craig LPN Position: [facility] RN Member Role: Primary Care Nurse Name: Kaye Comer RN Position: [facility] RN Member Role: Primary Care Nurse Name: Kenyatta Kirby RN Position: [facility] RN Member Role: Primary Care Nurse Name: Andres Pressley RN Position: [facility] RN Member Role: Primary Care Nurse Name: Jany Baig DO Position: [facility] Physician - Primary Care Member Role: PCP Address: Address: [address] [place] [address] Adult & [place] [address]- Name: Mary Haines NP Position: [facility] Associate Professional Member Role: Primary Care Nurse Address: Address: [address] [place] [address]- Name: Garima Curry RN Position: [facility] RN Member Role: Primary Care Nurse Name: Britney Davis RN Position: [facility] RN Member Role: Primary Care Nurse Name: Malgorzata Austin RN Position: [facility] RN Member Role: Primary Care Nurse Name: Iebth Adams RN Position: [facility] RN Member Role: Primary Care Nurse Name: Torrie Hernandez RN Position: [facility] OB RN Member Role: Primary Care Nurse Name: Yoselin Jones RN Position: [facility] RN Member Role: Primary Care Nurse Name: Gretchen Knutson RN Position: [facility] SN RN Member Role: Primary Care Nurse Name: Aislinn Mckee RN Position: [facility] RN Member Role: Primary Care Nurse Name: Ashley Mcelroy RN Position: [facility] RN Member Role: Primary Care Nurse Name: Ashok Kevin RN Position: [facility] RN Member Role: Primary Care Nurse Name: Eben Villavicencio RN Position: [facility] RN Member Role: Primary Care Nurse Name: Cody Garcia Position: [facility] Associate Professional Member Role: Lifetime Consulting Provider Address: Address: [address] [place] [address] [address] [facility] [address] Name: Paige Nascimento RN Position: [facility] RN Member Role: Primary Care Nurse Name: Kacey Woodard RN Position: [facility] RN Member Role: Primary Care Nurse Name: Sue Combs RN Position: [facility] RN Member Role: Primary Care Nurse Name: Ge Covarrubias RN Position: [facility] RN Member Role: Primary Care Nurse Name: Orin Elmore RN Position: [facility] ED RN W/OE and Tasks Member Role: Primary Care Nurse Name: Allegra Liu RN Position: [facility] AMB Nurse Member Role: Primary Care Nurse Name: Shayan Pandya MD Position: [facility] Renal MD Member Role: Lifetime Consulting Physician Address: Address: [address] [place] [address] [address] [facility] [place], [address] Name: Kimberley Pittman RN Position: [facility] RN Member Role: Primary Care Nurse Name: Darlene Rodrigez RN Position: [facility] RN Member Role: Primary Care Nurse Name: Alison Helton RN Position: [facility] RN Member Role: Primary Care Nurse Name: Dixie Duke RN Position: [facility] RN Member Role: Primary Care Nurse Name: Kwan Mills RN Position: [facility] ED RN W/OE and Tasks Member Role: Primary Care Nurse Name: Ange Patel Position: [facility] RN Member Role: Primary Care Nurse Name: Ingrid Verdugo RN Position: [facility] RN Member Role: Primary Care Nurse Name: Terra Fishman RN Position: [facility] RN Member Role: Primary Care Nurse Name: Monica Rowell RN Position: [facility] RN Member Role: Primary Care Nurse Name: Anita Hodges RN Position: [facility] RN Member Role: Primary Care Nurse Name: Jimi Fitzpatrick RN Position: S RN Member Role: Primary Care Nurse Care Team Related Persons Name: CAWUMARLEN Address: home [address] [place], [place] Name: MARLEN CABEZAS Address: home [address] [place] [address] Name: NICK CABEZAS Name: GEMA CABEZAS Address: home [address] [place] [address] Name: ELTON CHENG Address: home [address] [place] [id number] Name: LAURO QUEVEDO
[2024-04-13 03:58] LABS: Alanine Aminotransferase 96 U/L (0-40); Albumin Level 3.5 g/dL (3.5-5.0); Alkaline Phosphatase 144 U/L (39-117); Anion Gap 17 (12-20); Aspartate Amino Transferase 98 U/L (5-37); Bilirubin Total 2.9 mg/dL (0.0-1.0); Blood Urea Nitrogen 5 mg/dL (9-16); Calcium 8.4 mg/dL (8.4-10.2); Carbon Dioxide 18 mmol/L (22-29); Chloride 107 mmol/L (96-108); Creatinine Clr Calc Pharmacy 105.2; Estimated Glomerular Filt Rate > 60; Ethanol 116 mg/dL; Glucose Random 114 mg/dL (60-115); Potassium 3.5 mmol/L (3.3-5.1); Sodium 138 mmol/L (135-145)
--- OUTSIDE RECORDS SUMMARY | 2024-04-13 03:58 | XMS_ITS | Continuity of Care Document ---
Author Organization [facility] Address [address] [place] [address]- Care Team Providers Care Inventory Control Planner Name Role Phone Jany Baig DO Primary Care Physician Encounter [facility] [place] Date(s): 01/03/24 - 02/02/24 [facility] [address] [place], [place] [address] Attending Physician: Venice Salmon Admitting Physician: [place] [...] Give n 1Result Comment: [facility]: [id number] 2Result Comment: [04/29/2017] [id number] 3Admin Note: FLUARIX 4Admin Note: 3 RDINJ 5Admin Note: #2 Medications Aldactone 25 mg oral tablet 25 mg, 1, tablet, By Mouth, Daily, # 30 tablet, Refills 0, Tot. Refills 0, Maintenance, 01/06/24 15:25:00 EDT, Route to Pharmacy Electronically, [facility] 3, Partial fill upon patient request if the prescription is for a schedule II opioi... Start Date: 01/06/24 Stop Date: 02/05/24 Status: Ordered Bactrim DS 800 mg-160 mg oral tablet 1 tablet, By Mouth, 2 times a day, for 30 days, # 60 tablet, 5 Refills, Acute 06/14/24 6:34:00 EST,12/17/23 6:34:00 EDT, Tablet, [facility], Partial fill upon patient request [...] 07/28/23 12:08:00 EST, Route to Pharmacy Electronically, [facility], 175, cm, 07/28/23 9:11:00 EST, [...] 07/28/23 12:09:00 EST, Route to Pharmacy Electronically, [facility], 175, cm, 07/28/23 9:11:00 EST, [...] 01/06/24 15:25:00 EDT, Route to Pharmacy Electronically, [facility] 3, Partial fill upon patient request [...] tablet, 5 Refills, Maintenance, 05/06/23 19:16:00 EST, [facility], 30, TAKE 1 TABLET BY MOUTH ONCE A DAY^1R1, 175, cm, 03/22/23 6:50:00 EDT, Height, 77.5,kg, 03/20/23 11:30:00 EDT, Dry Weight Start Date: 05/06/23 Status: Ordered Vitamin B1 100 mg oral tablet 1, tablet, By Mouth, Daily, # 90 tablet, Refills 3, Tot. Refills 3, Maintenance, 07/28/23 12:12:00 EST, Route to Pharmacy Electronically, [facility], 175, cm, 07/28/23 9:11:00 EST, Height, 61.3, kg, 07/12/23 23:27:00 EST, Dry Weight Start Date: 07/28/23 Status: Ordered Vitamin B6 50 mg oral tablet 1, tablet, By Mouth, Daily, R1., # 90 tablet, Refills 4, Tot. Refills 4, Maintenance, 07/28/23 12:11:00 EST, Route to Pharmacy Electronically, [facility], 175, cm, 07/28/23 9:11:00 EST, [...] 30 days entered on: 02/04/19 Sex Male Hospital Consult note * Event Display: Inpatient Consult Note, Non-BH Authored Date: Laboratory * Event Display: Non BH Lab Results Authored Date: * Event Display: Non BH Lab Results Authored Date: * Event Display: Non BH Lab Results Authored Date: Patient Care team information Care Team Personnel Name: Shira Galindo RN Position: [facility] RN Member Role: Primary Care Nurse Name: Estela Martinez RN Position: [facility] RN Member [...] Care Nurse Name: Jean Epstein RN Position: [facility] RN Member Role: Primary Care Nurse Name: Maria Esther Craig LPN Position: [facility] RN Member Role: Primary Care Nurse Name: Kaye Comer RN Position: [facility] RN Member Role: Primary Care Nurse Name: Kenyatta Kirby RN Position: [facility] RN Member Role: Primary Care Nurse Name: Andres Pressley RN Position: [facility] RN Member Role: Primary Care Nurse Name: Jany Baig DO Position: [facility] Physician - Primary Care Member Role: PCP Address: Address: [address] [place] [address] Adult & [place] [address]- Name: Mary Haines NP Position: [facility] Associate Professional Member Role: Primary Care Nurse Address: Address: [address] [place] [id number]- Name: Garima Curry RN Position: [facility] RN Member Role: Primary Care Nurse Name: Britney Davis RN Position: [facility] RN Member Role: Primary Care Nurse Name: Malgorzata Austin RN Position: [facility] RN Member Role: Primary Care Nurse Name: Ibeth Adams RN Position: [facility] RN Member Role: Primary Care Nurse Name: Torrie Hernandez RN Position: [facility] OB RN Member Role: Primary Care Nurse Name: Yoselin Jones RN Position: [facility] RN Member Role: Primary Care Nurse Name: Gretchen Knutson RN Position: [facility] SN RN Member Role: Primary Care Nurse Name: Aislinn Mckee RN Position: [facility] RN Member Role: Primary Care Nurse Name: Ashley Mcelroy RN Position: [facility] RN Member Role: Primary Care Nurse Name: Ashok Kevin RN Position: [facility] RN Member Role: Primary Care Nurse Name: Eben Villavicencio RN Position: [facility] RN Member Role: Primary Care Nurse Name: Cody Garcia Position: [facility] Associate Professional Member Role: Lifetime Consulting Provider Address: Address: [address] [place] [address]- Name: Paige Nascimento RN Position: [facility] RN Member Role: Primary Care Nurse Name: Kacey Woodard RN Position: [facility] RN Member Role: Primary Care Nurse Name: Sue Combs RN Position: [facility] RN Member [...] Member Role: Lifetime Consulting Physician Address: Address: [address] [place] [address] [address] [facility] [place], [place] [address]- Name: Kimberley Pittman RN Position: [facility] RN Member Role: Primary Care Nurse Name: Darlene Rodrigez RN Position: [facility] RN Member Role: Primary Care Nurse Name: Alison Helton RN Position: [facility] RN Member Role: Primary Care Nurse Name: Dixie Duke RN Position: [facility] RN Member Role: Primary Care Nurse Name: Kwan Mills RN Position: [facility] ED RN W/OE and Tasks Member Role: Primary Care Nurse Name: Ange Patel Position: [facility] RN Member Role: Primary Care Nurse Name: Ingrid Verdugo RN Position: [facility] RN Member Role: Primary Care Nurse Name: Terra Fishman RN Position: [facility] RN Member Role: Primary Care Nurse Name: Monica Rowell RN Position: [facility] RN Member Role: Primary Care Nurse Name: Anita Hodges RN Position: [facility] RN Member Role: Primary Care Nurse Name: Jimi Fitzpatrick RN Position: [facility] RN Member Role: Primary Care Nurse Care Team Related Persons Name: DUCBRIANWUMARLEN Address: [address] [place] [address] Name: MARLEN CABEZAS Address: [address] [place] [address] Name: NICK CABEZAS Name: GEMA CABEZAS Address: [address] [place] [address] Name: ELTON CHENG Address: home [address] [place] [id number] Name: LAURO QUEVEDO
--- OUTSIDE RECORDS SUMMARY | 2024-04-13 03:59 | XMS_ITS | Continuity of Care Document ---
Author Organization [facility] Address [address] [place] [id number]- Care Team Providers Care Duty Officer Name Role Phone Jany Baig DO Primary Care Physician [place] [facility] [place]): 02/02[place]24 - 03/03/24 [facility] [address] [place] [id number]- Attending Physician: Venice Salmon Admitting Physician: Venice [...] Give n 1Result Comment: [facility]: [id number] 2Result Comment: [04/29/2017] [id number] 3Admin Note: FLUARIX 4Admin Note: 3 RDINJ 5Admin Note: #2 Medications Aldactone 25 mg oral tablet 25 mg, 1, tablet, By Mouth, Daily, # 30 tablet, Refills 0, Tot. Refills 0, Maintenance, 01/06/24 15:25:00 EDT, Route to Pharmacy Electronically, [facility], Partial fill upon patient request if the prescription is for a schedule II opioi... Start Date: 01/06/24 Stop Date: 02/05/24 Status: Ordered Bactrim DS 800 mg-160 mg oral tablet 1 tablet, By Mouth, 2 times a day, for 30 days, # 60 tablet, 5 Refills, Acute 06/14/24 6:34:00 EST,12/17/23 6:34:00 EDT, Tablet, [facility], Partial fill upon patient request if [...] 07/28/23 12:08:00 EST, Route to Pharmacy Electronically, [facility], 175, cm, 07/28/23 9:11:00 EST, Height, 61.3, kg, 07/12/23 23:27:00 EST, Dry Weight Start Date: 07/28/23 Status: Ordered furosemide 20 mg oral tablet 20 mg, 1, tablet, By Mouth, Every other day, # 30 tablet, Refills 1, Tot. Refills 1, Maintenance, 07/28/23 12:08:00 EST, Route to Pharmacy Electronically, [facility], Partial fill upon patient request if the prescription is for a schedule II... Start Date: 07/28/23 Status: Ordered gabapentin 300 mg oral capsule 300 mg, 1, capsule, By Mouth, Daily at bedtime, note dose/frequency change, # 30 capsule, Refills 1, Tot. Refills 1, Maintenance, 07/28/23 12:09:00 EST, Route to Pharmacy Electronically, [facility], 175, cm, 07/28/23 9:11:00 EST, Height, [...] 01/06/24 15:25:00 EDT, Route to Pharmacy Electronically, [facility] 3, Partial fill upon patient [...] 07/28/23 12:12:00 EST, Route to Pharmacy Electronically, [facility], 175, cm, 07/28/23 9:11:00 EST, Height, 61.3, kg, 07/12/23 23:27:00 EST, Dry Weight Start Date: 07/28/23 Status: Ordered Vitamin B6 50 mg oral tablet 1, tablet, By Mouth, Daily, R1., # 90 tablet, Refills 4, Tot. Refills 4, Maintenance, 07/28/23 12:11:00 EST, Route to Pharmacy Electronically, [facility], 175, cm, 07/28/23 9:11:00 EST, Height, [...] Team Personnel Name: Shira Galindo RN Position: [facility] RN Member Role: Primary Care Nurse Name: Estela Martinez RN Position: [facility] RN Member Role: Primary Care Nurse Name: Alexandra Colmenares RN Position: [facility] ED RN W/OE and Tasks Member Role: Primary Care Nurse Name: Garima Manzano RN Position: [facility] RN Member Role: Primary Care Nurse Name: Malgorzata Marinelli RN Position: [facility] RN Member Role: Primary Care Nurse Name: Joyce Roach RN Position: [facility] ED RN W/OE and Tasks Member Role: Primary Care Nurse Name: Lucina Peralta RN Position: [facility] RN Member Role: Primary Care Nurse Name: Jean Epstein RN Position: [facility] RN Member Role: Primary Care Nurse Name: Maria Esther Craig LPN Position: [facility] RN Member Role: Primary Care Nurse Name: Kaye Comer RN Position: [facility] RN Member Role: Primary Care Nurse Name: Kenyatta Kirby RN Position: [facility] RN Member Role: Primary Care Nurse Name: Andres Pressley RN Position: [facility] RN Member Role: Primary Care Nurse Name: Jany Baig DO Position: [facility] Physician - Primary Care Member Role: PCP Address: Address: [address] [place] [address] Adult & Pediatric [address] Name: Mary Haines NP Position: [facility] Associate Professional Member Role: Primary Care Nurse Address: Address: [address] [place] [address] Name: Garima Curry RN Position: [facility] RN Member Role: Primary Care Nurse Name: Britney Davis RN Position: [facility] RN Member Role: Primary Care Nurse Name: Malgorzata Austin RN Position: [facility] RN Member Role: Primary Care Nurse Name: Ibeth Adams RN Position: [facility] RN Member Role: Primary Care Nurse Name: Torrie Hernandez RN Position: [facility] OB RN Member Role: Primary Care Nurse Name: Yoselin Jones RN Position: [facility] RN Member Role: Primary Care Nurse Name: Gretchen Knutson RN Position: [facility] SN RN Member Role: Primary Care Nurse Name: Aislinn Mckee RN Position: [facility] RN Member Role: Primary Care Nurse Name: Ashley Mcelroy RN Position: [facility] RN Member Role: Primary Care Nurse Name: Ashok Kevin RN Position: [facility] RN Member Role: Primary Care Nurse Name: Eben Villavicencio RN Position: [facility] RN Member Role: Primary Care Nurse Name: Cody Garcia Position: [facility] Associate Professional Member Role: [employer] Provider Address: Address: [address] [place] [address]- Name: Paige Nascimento RN Position: [facility] RN Member Role: Primary Care Nurse Name: Kacey Woodard RN Position: [facility] RN Member Role: Primary Care Nurse Name: Sue Combs RN Position: [facility] RN Member Role: Primary Care Nurse Name: Ge Covarrubias RN Position: [facility] RN Member Role: Primary Care Nurse Name: Orin Elmore RN Position: [facility] ED RN W/OE and Tasks Member Role: Primary Care Nurse Name: Allegra Liu RN Position: [facility] AMB Nurse Member Role: Primary Care Nurse Name: Shayan Pandya MD Position: [facility] Renal MD Member Role: [employer] Consult[employer] Physician Address: Address: [address] [place] [address] [address] [facility] [place], [place] [address]- Name: Kimberley Pittman RN Position: [facility] RN Member Role: Primary Care Nurse Name: Darlene Rodrigez RN Position: [facility] RN Member Role: Primary Care Nurse Name: Alison Helton RN Position: [facility] RN Member Role: Primary Care Nurse Name: Dixie Duke RN Position: [facility] RN Member Role: Primary Care Nurse Name: Kwan Mills RN Position: [facility] ED RN W/OE and Tasks Member Role: Primary Care Nurse Name: Ange Patel Position: [facility] RN Member Role: Primary Care Nurse Name: Ingrid Verdugo RN Position: [facility] RN Member Role: Primary Care Nurse Name: Terra Fishman RN Position: [facility] RN Member Role: Primary Care Nurse Name: Monica Rowell RN Position: [facility] RN Member Role: Primary Care Nurse Name: Anita Hodges RN Position: S RN Member Role: Primary Care Nurse Name: Jimi Fitzpatrick RN Position: S RN Member Role: Primary Care Nurse Care Team Related Persons Name: CAWUMARLEN Address: [address] [place] [address] Name: MARLEN CABEZAS Address: home [address] [place] [id number] Name: NICK CABEZAS Name: GEMA CABEZAS Address: home [address] [place] [address] Name: ELTON CHENG Address: home [address] [place] [id number] Name: LAURO QUEVEDO
[2024-04-13 05:09] LABS: Appearance Urine Clear; Color Urine Dark Yellow; Glucose Urine UA Negative (Negative); Leukocyte Esterase Urine Trace (Negative); Nitrite Urine Negative (Negative); Specific Gravity - Urine 1.015 (1.005-1.025); UMIC TRIGGER UACC YES; Urine Blood Negative (Negative); Urine Ketones Trace mg/dL (Negative); Urine Protein Trace mg/dL (Neg-Trace)
[2024-04-13 05:23] LABS: Amphetamine Screen Urine Not Detected (Not Detect); Barbiturates, Urine Not Detected (Not Detect); Benzodiazepines Screen Urine Not Detected (Not Detect); Buprenorphine Scr Not Detected (Not Detect); Cannabinoid Screen Urine Not Detected (Not Detect); Cocaine Screen Urine POSITIVE (Not Detect); Fentanyl, urine POSITIVE (Not Detect); Methadone Screen, Urine Not Detected (Not Detect); Opiate Screen Urine POSITIVE (Not Detect); Oxycodone Screen Urine Not Detected (Not Detect); Phencyclidine Screen Urine Not Detected (Not Detect)
--- NOTE | 2024-04-13 05:29 | ED_ITS ---
HPI - General Adult General Chief complaint: ETOH/Substance Use Stated complaint: numb feet Time Seen by Provider: 04/13/24 05:28 Source: patient and EMS Mode of arrival: EMS Limitations: no limitations History of Present Illness ED Provider: Dr Renee HPI narrative: patient brought in by EMS, told by his counselor to come in and be evaluated by crisis. Patient is homeless, alcoholic with liver disease, polysubstance abuse. He talks about hanging out with all his colleagues so his couselor got concerned, he is not suicidal or homicidal. Related Data Home Medications ?Medication ?Instructions ?Recorded ?Confirmed acamprosate 333 mg tablet,delayed 666 mg PO TID 12/17/23 12/17/23 release amlodipine 5 mg tablet 5 mg PO DAILY 12/17/23 12/17/23 baclofen 10 mg tablet 10 mg PO TID 12/17/23 12/17/23 calcium carbonate 500 mg-vitamin 1 tab PO DAILY 12/17/23 12/17/23 D3 10 mcg (400 unit) tablet collagenase clostridium histo. 250 1 appl topical DAILY 12/17/23 12/17/23 unit/gram topical ointment (Santyl) folic acid 1 mg tablet 1 mg PO DAILY 12/17/23 12/17/23 furosemide 20 mg tablet 10 mg PO DAILY 12/17/23 12/17/23 gabapentin 300 mg capsule 300 mg PO DAILY 12/17/23 12/17/23 lactulose 10 gram/15 mL oral 30 ml PO TID 12/17/23 12/17/23 solution magnesium oxide 400 mg (241.3 mg 400 mg PO DAILY 12/17/23 12/17/23 magnesium) tablet melatonin 3 mg tablet 3 mg PO BEDTIME 12/17/23 12/17/23 multivitamin with folic acid 400 1 tab PO DAILY 12/17/23 12/17/23 mcg tablet (Tab-A-Jesse) nicotine (polacrilex) 2 mg gum 2 mg PO PRN Withdrawal Symptoms 12/17/23 pantoprazole 40 mg tablet,delayed 40 mg PO DAILY 12/17/23 12/17/23 release paroxetine HCl 10 mg tablet 10 mg PO DAILY 12/17/23 12/17/23 pyridoxine (vitamin B6) 50 mg 50 mg PO DAILY 12/17/23 12/17/23 tablet rifaximin 550 mg tablet (Xifaxan) 550 mg PO BID 12/17/23 12/17/23 sennosides 8.6 mg tablet (senna) 17.2 mg PO DAILY 12/17/23 12/17/23 spironolactone 25 mg tablet 25 mg PO DAILY 12/17/23 12/17/23 thiamine HCl (vitamin B1) 100 mg 100 mg PO DAILY 12/17/23 12/17/23 tablet trazodone 100 mg tablet 100 mg PO BEDTIME 12/17/23 12/17/23 Allergies Allergy/AdvReac Type Severity Reaction Status Date / Time acetaminophen [From TYLENOL] Allergy Intermediate ULCERS Verified 04/13/24 03:06 aspirin [ASA] Allergy Unknown VOMITING Verified 04/13/24 03:06 BLOOD Review of Systems 2 Review of Systems: Yes all other systems are reviewed and are negative Neurologic: Denies Sensory deficit (Neuro) [facility] Past Medical History Medical History Cirrhosis Alcoholism Nasal fracture Legally blind Hypertension Depression Heart murmur Surgical History S/P TIPS (transjugular intrahepatic portosystemic shunt) Social History Social History Alcohol intake: current Alcohol intake frequency: 3 or more drinks per day Alcohol type: hard liquor Smoked in Last 30 Days: Yes Use of substances other than those prescribed or required for medical reasons: No Substance Use Type: Crack/Cocaine and Marijuana Advance Directives: No Advance Directives Information Provided: Yes Physical Exam ED Vital Signs: Vital Signs - 24 hr 04/13/24 03:00 04/13/24 06:02 Temperature 97.9 F Pulse Rate 109 H 116 H Respiratory Rate 18 16 Blood Pressure 132/76 99/61 Pulse Oximetry 99 97 Oxygen Delivery Method Room Air Room Air BMI result Body Mass Index 27.4 Const Other: unkept male in no acute distress Nutritional Appearance: average body habitus Orientation/consciousness: oriented to person and patient oriented x3 Limitations: no limitations HENMT Head: Yes normal to inspection Ears: external ears normal General nose exam: Normal external nose present Mouth: Normal oral and palatal mucosa present and oropharynx normal Throat: Yes posterior oropharynx normal Eyes General: appearance normal, both eyes and all related structures Neck Neck: Yes normal visual inspection Chest Chest palpation & inspection: normal inspection of the chest Resp Auscultation: clear to auscultation bilaterally Cardio Jugular venous distension: no JVD Rate: regular rate Rhythm: regular rhythm Heart sounds: S1 normal heart sound present and S2 normal heart sound present GI Inspection: Yes normal to inspection Palpation (GI): Soft to palpation, nontender and No hepatosplenomegaly present Auscultation: normal bowel sounds General: Yes no CVA tenderness Back/Spine/Pelvis Back: no CVA tenderness Skin General skin exam: no rashes or lesions noted Neuro General: oriented to person and patient oriented x3 Cranial nerves: Yes CN's II-XII intact bilaterally Motor exam (neuro): 5/5 motor strength present throughout Sensory Exam: No Sensory deficit (Neuro) Extrem General: Yes normal to inspection Psych Appearance: grossly normal Course Reevaluation(s) Reevaluation #1: physician observation started now, patient waiting for psych evaluation to see if he qualifies for admission or detox Time: 07:23 Medical Decision Making Differential Diagnosis Differential Diagnoses: The differential diagnosis associated with the presentation includes (alcoholism, depression, liver injury) Admission/Observation Consideration of admission/observation: Escalation of care including admission/observation considered (upon arrival patient considered for admission) Consult Healthcare Provider Management of the patient was discussed with: Behavioral Health Provider Lab Data 04/13/24 03:28 04/13/24 03:28 Labs: Lab Results 04/13/24 04/13/24 Range/Units 03:28 05:03 WBC 6.4 (4.8-10.8) X10*3/uL RBC 3.94 L (4.60-5.80) X10*6/uL Hgb 12.0 L (14.0-18.0) g/dl Hct 35.1 L (42.0-52.0) % MCV 89.1 (80.0-98.0) fL MCH 30.5 (27.0-33.0) pg MCHC 34.2 (31.0-36.0) g/dl RDW 16.6 H (11.0-16.0) % Plt Count 108 L (160-400) X10*3/uL MPV 9.7 (9.4-12.4) fL Immature Gran % (Auto) 0.5 H (0.0-0.4) % Neut % (Auto) 65.2 (45-73) % Lymph % (Auto) 18.4 L (20-40) % Perkins % (Auto) 14.2 H (2-11) % Eos % (Auto) 1.4 (0-4) % Baso % (Auto) 0.3 (0-2) % Lymph # (Auto) 1.2 (1.2-4.9) X10*3/uL Perkins # (Auto) 0.9 (0.1-1.2) X10*3/uL Eos # (Auto) 0.1 (0.0-0.4) X10*3/uL Baso # (Auto) 0.0 (0.0-0.2) X10*3/uL Abs Immat Gran (auto) 0.03 (0.00-0.03) X10*3/uL Absolute Neuts (auto) 4.2 (2.0-8.3) x10*3/uL Absolute Nucleated RBC 0.000 (0.0-0.012) X10*3/uL Nucleated RBC % (auto) 0.0 (0.0-0.2) /100WBC Sodium 138 (135-145) mmol/L Potassium 3.5 (3.3-5.1) mmol/L Chloride 107 (96-108) mmol/L Carbon Dioxide 18 L (22-29) mmol/L Anion Gap 17 (12-20) BUN 5 L (9-16) mg/dL Creatinine 0.83 (0.5-1.4) mg/dL Estim Creat Clear Calc 105.2 Estimated GFR > 60 Random Glucose 114 (60-115) mg/dL Calcium 8.4 (8.4-10.2) mg/dL Total Bilirubin 2.9 H (0.0-1.0) mg/dL AST 98 H (5-37) U/L ALT 96 H (0-40) U/L Alkaline Phosphatase 144 H (39-117) U/L Total Protein 7.0 (6.5-8.0) g/dL Albumin 3.5 (3.5-5.0) g/dL Urine Color Dark Yellow Urine Appearance Clear Urine pH 6.0 (5.0-9.0) Ur Specific [place] 1.015 (1.005-1.025) Urine Protein Trace (Neg-Trace) mg/dL Urine Glucose (UA) Negative (Negative) mg/dL Urine Ketones Trace (Negative) mg/dL Urine Blood Negative (Negative) Urine Nitrite Negative (Negative) Ur Leukocyte Esterase Trace H (Negative) Urine RBC 0-2 (0-2) /HPF Urine WBC 0-5 (0-5) /HPF Ur Squamous Epith Cells 0-2 (0-2) /HPF Urine Bacteria None Seen (None Seen) Hyaline Casts 3-5 (0-2) /LPF Urine Opiates Screen POSITIVE H (Not Detect) Ur Buprenorphine Scrn Not Detected (Not Detect) ng/mL Ur Oxycodone Screen Not Detected (Not Detect) ng/mL Urine Methadone Screen Not Detected (Not Detect) ng/mL Urine Fentanyl Screen POSITIVE H (Not Detect) Ur Barbiturates Screen Not Detected (Not Detect) Ur Phencyclidine Scrn Not Detected (Not Detect) Ur Amphetamines Screen Not Detected (Not Detect) U Benzodiazepines Scrn Not Detected (Not Detect) Urine Cocaine Screen POSITIVE H (Not Detect) U Marijuana (THC) Screen Not Detected (Not Detect) Ethyl Alcohol 116 mg/dL Independent Historian Clinical information obtained from an independent historian. History obtained from or confirmed by: EMS Chronic Conditions Patient?s care impacted by: Other (alcoholism, drug abuse) Social Determinants Patient?s care significantly limited by Social Determinants of Health including: Inadequate housing, Low income and Alcoholism and drug addiction in family Discharge Plan Discharge Clinical Impression: Alcoholism, Depression Patient Disposition: Still a Patient Prescriptions: No Action amlodipine 5 mg tablet 5 mg PO DAILY baclofen 10 mg tablet 10 mg PO TID gabapentin 300 mg capsule 300 mg PO DAILY folic acid 1 mg tablet 1 mg PO DAILY furosemide 20 mg tablet 10 mg PO DAILY acamprosate 333 mg tablet,delayed release (DR/EC) 666 mg PO TID calcium carbonate-vitamin D3 500 mg-10 mcg (400 unit) tablet 1 tab PO DAILY sennosides [senna] 8.6 mg tablet 17.2 mg PO DAILY paroxetine HCl 10 mg tablet 10 mg PO DAILY nicotine (polacrilex) 2 mg gum 2 mg PO PRN (Reason: Withdrawal Symptoms) thiamine HCl (vitamin B1) 100 mg tablet 100 mg PO DAILY melatonin 3 mg tablet 3 mg PO BEDTIME spironolactone 25 mg tablet 25 mg PO DAILY magnesium oxide 400 mg (241.3 mg magnesium) tablet 400 mg PO DAILY trazodone 100 mg tablet 100 mg PO BEDTIME pantoprazole 40 mg tablet,delayed release (DR/EC) 40 mg PO DAILY pyridoxine (vitamin B6) 50 mg tablet 50 mg PO DAILY Santyl 250 unit/gram ointment 1 appl topical DAILY lactulose 10 gram/15 mL solution 30 ml PO TID Xifaxan 550 mg tablet 550 mg PO BID multivitamin with folic acid [Tab-A-Jesse] 400 mcg tablet 1 tab PO DAILY Print Language: Kiswahili
[2024-04-13 05:30] LABS: Bacteria Urine None Seen (None Seen); RBC Urine 0-2 /HPF (0-2); Squamous Epithelial Cell Urine 0-2 /HPF (0-2); WBC Urine 0-5 /HPF (0-5)
--- NOTE | 2024-04-13 05:31 | PC.NURSE ---
pt reported he was incont of stool earlier today, provided warm wipes and clean gown/pants.
--- NOTE | 2024-04-13 05:33 | PC.NURSE ---
belonging on shelf 2 in closet, phone at bedside per security
[2024-04-13 06:02] VITALS: BP 99/61; PULSE 116; RESP 16; TEMP 36.6; O2SAT 97
--- NOTE | 2024-04-13 07:51 | PC.NURSE ---
report recieved from previous rn, patient resting on stretcher, denies SI/HI, awaiting care team consult. patient belongings were taken by previous shift however patient still has cell phone. security at bedside per protocol to take phone, patient refusing to give phone to security. provider to be made aware, patient in room stating he doesnt need to see care team if he is going to have his things taken away. security to make provider aware.
--- NOTE | 2024-04-13 07:59 | PC.NURSE ---
care team at bedside
--- NOTE | 2024-04-13 08:05 | MHC.CARE ---
Pt does not meet [facility]PL[facility] at this time. He denies SI, HI, and A/V/H. Pt does not present as an imminent risk and is agitated and swearing at staff and security. He is declining to speak to anyone and asking to D/C. Pt denied SI to T/W and declined any resources for his alcohol use. He asked for a Lyft ride to [facility] and T/W declined. He will be given a Lyft ride to an addess in [place]. Provider in agreement with this disposition.
[2024-04-13 08:06] VITALS: BP 99/61; PULSE 116; RESP 16; TEMP 36.6; O2SAT 97
== END 2024-04-13 08:24 | disposition home or self-care (01) ==
PROVIDERS: Emergency Provider Emergency Medicine; PCP Pediatrics
DX: F32.A Depression, unspecified (principal); F10.20 Alcohol dependence, uncomplicated; Y90.5 Blood alcohol level of 100-119 mg/100 ml; K70.9 Alcoholic liver disease, unspecified; F19.10 Other psychoactive substance abuse, uncomplicated; I10 Essential (primary) hypertension; R01.1 Cardiac murmur, unspecified; Z79.899 Other long term (current) drug therapy; Z59.00 Homelessness unspecified
CPT/HCPCS: 36415; 80053; 80307; 81001; 85025; 99284

== ENCOUNTER 2024-09-02 02:22 | Emergency (ER) | payer OTHER, SELFPAY ==
--- NOTE | ~2024-09-02 | XR_ITS ---
CLINICAL HISTORY: fall, pain Exam: AP, lateral, and oblique views of the right elbow. Comparison: None. Findings: Bony alignment is anatomic. No fracture. Joint spaces are well preserved. No joint effusion. Impression: No fracture. This document has been electronically signed by: Houston Covarrubias MD on 09/02/2024 03:45:01
--- NOTE | ~2024-09-02 | XR_ITS ---
CLINICAL HISTORY: fall, pain Exam: AP, lateral, and spot lateral views of the lumbar spine. Comparison: None. Findings: Minimal convex left lower lumbar curvature. Alignment is anatomic on the lateral view. Mild disc space narrowing at L4-5 with osteophytic ridging at L5-S1. [id number] facet joint degenerative change from L2-3 inferiorly. TIPS catheter shunt is seen within the right upper quadrant with numerous embolization coils in the epigastric region. Impression: Degenerative changes as above without acute fracture. TIPS catheter shunt with numerous embolization coils. This document has been electronically signed by: Houston Covarrubias MD on 09/02/2024 03:44:27
[2024-09-02 02:30] VITALS: BP 145/76; BP 160/88; PULSE 84; RESP 20; TEMP 36.4; O2SAT 100; BMI 26.6
--- NOTE | 2024-09-02 05:12 | MHC.EDTECH ---
Patient incontinent of stool, patient covered from waste down. patient moved to open room and patient changed and cleaned. belongings placed in belongings bag and behind head of bed. patient back to [address] and in position of comfort.
[2024-09-02 05:25] VITALS: BP 146/78; PULSE 79; RESP 16; TEMP 36.5; O2SAT 99
--- NOTE | 2024-09-02 07:44 | ED_ITS ---
HPI - Fall General Chief Complaint: Fall Stated Complaint: fall, elbow & back pain Time Seen by Provider: 09/02/24 07:26 Source: patient and EMS Mode of arrival: EMS Limitations: no limitations History of Present Illness ED Provider: DR. Foster HPI Narrative: 49-year-old male a normally walk with a walker came in after he slept and fell [address] of [address] going down landing backward on his lower back, patient is also complaining of right elbow pain that he fell 2 days ago, patient stated that he was not drunk when he fell did not drank yesterday, no head injury, no LOC, no neck pain, no chest pain, patient would like to speak with somebody to help him to go to rehab. Patient stated that he is homeless currently and has no place to go. Related Data Home Medications ?Medication ?Instructions ?Recorded ?Confirmed acamprosate 333 mg tablet,delayed 666 mg PO TID 12/17/23 12/17/23 release amlodipine 5 mg tablet 5 mg PO DAILY 12/17/23 12/17/23 baclofen 10 mg tablet 10 mg PO TID 12/17/23 12/17/23 calcium 500 mg (as 1 tab PO DAILY 12/17/23 12/17/23 carbonate)-vitamin D3 10 mcg (400 unit) tablet collagenase clostridium histo. 250 1 appl topical DAILY 12/17/23 12/17/23 unit/gram topical ointment (Santyl) folic acid 1 mg tablet 1 mg PO DAILY 12/17/23 12/17/23 furosemide 20 mg tablet 10 mg PO DAILY 12/17/23 12/17/23 gabapentin 300 mg capsule 300 mg PO DAILY 12/17/23 12/17/23 lactulose 10 gram/15 mL oral 30 ml PO TID 12/17/23 12/17/23 solution magnesium oxide 400 mg (241.3 mg 400 mg PO DAILY 12/17/23 12/17/23 magnesium) tablet melatonin 3 mg tablet 3 mg PO BEDTIME 12/17/23 12/17/23 multivitamin with folic acid 400 1 tab PO DAILY 12/17/23 12/17/23 mcg tablet (Tab-A-Jesse) nicotine (polacrilex) 2 mg gum 2 mg PO PRN Withdrawal Symptoms 12/17/23 pantoprazole 40 mg tablet,delayed 40 mg PO DAILY 12/17/23 12/17/23 release paroxetine HCl 10 mg tablet 10 mg PO DAILY 12/17/23 12/17/23 pyridoxine (vitamin B6) 50 mg 50 mg PO DAILY 12/17/23 12/17/23 tablet rifaximin 550 mg tablet (Xifaxan) 550 mg PO BID 12/17/23 12/17/23 sennosides 8.6 mg tablet (senna) 17.2 mg PO DAILY 12/17/23 12/17/23 spironolactone 25 mg tablet 25 mg PO DAILY 12/17/23 12/17/23 thiamine HCl (vitamin B1) 100 mg 100 mg PO DAILY 12/17/23 12/17/23 tablet trazodone 100 mg tablet 100 mg PO BEDTIME 12/17/23 12/17/23 Allergies Allergy/AdvReac Type Severity Reaction Status Date / Time acetaminophen [From TYLENOL] Allergy Intermediate ULCERS Verified 09/02/24 02:31 aspirin [ASA] Allergy Unknown VOMITING Verified 09/02/24 02:31 BLOOD Review of Systems Review of Systems: All other systems are reviewed and are negative Constitutional: Reports as per HPI and Reports no additional constitutional complaints Eyes: Reports as per HPI and Reports no additional eye complaints Reports system reviewed and no additional complaints, except as documented Cardiovascular: Reports as per HPI and Reports no additional cardiovascular complaints Respiratory: Reports as per HPI and Reports no additional respiratory complaints Gastrointestinal: Reports as per HPI and Reports no additional gastrointestinal complaints Genitourinary: Reports no additional female genitourinary complaints Musculoskeletal: Reports no additional musculoskeletal complaints Skin/Breast: Reports system reviewed and no additional complaints, except as docu Psychiatric: Reports no additional psychiatric complaints Endocrine: Reports no additional endocrine complaints Hematologic/Lymphatic: Reports no additional hematologic/lymphatic complaints Allergic/Immunologic: Reports no additional allergic/immunologic complaints Reports system reviewed and no additional complaints, except as documented and Reports Abnormal speech present [facility] Past Medical History Medical History Cirrhosis Alcoholism Nasal fracture Legally blind Hypertension Depression Heart murmur Surgical History S/P TIPS (transjugular intrahepatic portosystemic shunt) Social History Social History Unable to assess alcohol history related to: Refusing to respond Alcohol intake: current Alcohol intake frequency: 3 or more drinks per day Alcohol type: hard liquor Substance Use Type: Crack/Cocaine and Marijuana Advance Directives: Yes Advance Directives on File: Yes Advance Directives Date on File: 12/20/23 Physical Exam Vital Signs: Vital Signs: Last Vital Signs Temp 97.7 F 09/02/24 05:25 Pulse 79 09/02/24 05:25 Resp 16 09/02/24 05:25 BP 146/78 H 09/02/24 05:25 Pulse Ox 99 09/02/24 05:25 O2 Del Method Room Air 09/02/24 05:25 BMI result Body Mass Index 26.6 Vital signs have been reviewed and appear to be correct. Blood pressure elevated. Heart rate normal. Respiratory rate normal. Temperature normal. Oxygen saturation normal. Appearance: Alert. Oriented X3. No acute distress. Head: Normal external exam. Normocephalic. Atraumatic. No Valerio signs noted. No raccoon eyes noted Eyes: PERRLA. EOMI. Conjunctiva and sclera normal. Eyelids normal. ENT: TM's Normal. Pharynx normal. Uvula midline. Moist mucous membranes. No trismus noted. No drooling noted. No muffled voice noted. Neck: Normal inspection. Neck supple. FROM. No adenopathy. Thyroid Normal. No meningeal signs. No neck mass noted. CVS: Normal heart rate and rhythm. Heart sound normal. No murmurs noted. Pulses normal throughout. Respiratory: No respiratory distress. Painless inspiration. Breath sounds normal. No wheezes/rales/rhonchi noted. Chest nontender. No accessory muscle usage noted or decreased air movement noted. Abdomen: Soft and nontender. Bowel sounds normal in all 4 quadrants. No distention noted. No organomegaly noted. No visible injury noted. Back: Mild lower lumbar tenderness with no step-off. Skin: Skin warm and dry. Normal skin color. Normal skin turgor. No rashes/lesions/lacerations noted. Extremities: Right upper extremity exam: Full range of motion, no deformity, neurovascularly intact, no elbow deformity with FROM. Neuro: Oriented X 3. Cranial nerve exam: II-XII are grossly intact No motor deficit. No sensory deficit. Reflexes normal. Course Reevaluation(s) Reevaluation #1: S/p mechanical fall with no fracture, patient is currently homeless seeking for detox rehab, await for a addiction medicine evaluation. Time: 07:51 Medical Decision Making Differential Diagnosis Differential Diagnoses: The differential diagnosis associated with the presentation includes (Lumbar spine injury, right elbow fracture, alcohol withdrawal symptoms, evaluation for rehab placement.) Admission/Observation Consideration of admission/observation: Escalation of care including admission/observation considered Independent Interpretation I performed an independent interpretation of an: Plain X-Ray (Right elbow/lumbar spine x-rays: No acute fracture, degenerative change to the lumbar spine.) Radiology Impression Discussion of test interpretation with radiology: I have reviewed the radiologist's reading. Social Determinants Patient?s care significantly limited by Social Determinants of Health including: Inadequate housing and Low income Discharge Plan Discharge Clinical Impression: Accident due to mechanical fall without injury, Alcoholism, Contusion of elbow, right, Contusion of lower back Patient Disposition: Still a Patient Instructions: Fall Prevention (ED) Prescriptions: No Action amlodipine 5 mg tablet 5 mg PO DAILY baclofen 10 mg tablet 10 mg PO TID gabapentin 300 mg capsule 300 mg PO DAILY folic acid 1 mg tablet 1 mg PO DAILY furosemide 20 mg tablet 10 mg PO DAILY acamprosate 333 mg tablet,delayed release (DR/EC) 666 mg PO TID calcium carbonate-vitamin D3 500 mg-10 mcg (400 unit) tablet 1 tab PO DAILY sennosides [senna] 8.6 mg tablet 17.2 mg PO DAILY paroxetine HCl 10 mg tablet 10 mg PO DAILY nicotine (polacrilex) 2 mg gum 2 mg PO PRN (Reason: Withdrawal Symptoms) thiamine HCl (vitamin B1) 100 mg tablet 100 mg PO DAILY melatonin 3 mg tablet 3 mg PO BEDTIME spironolactone 25 mg tablet 25 mg PO DAILY magnesium oxide 400 mg (241.3 mg magnesium) tablet 400 mg PO DAILY trazodone 100 mg tablet 100 mg PO BEDTIME pantoprazole 40 mg tablet,delayed release (DR/EC) 40 mg PO DAILY pyridoxine (vitamin B6) 50 mg tablet 50 mg PO DAILY Santyl 250 unit/gram ointment 1 appl topical DAILY lactulose 10 gram/15 mL solution 30 ml PO TID Xifaxan 550 mg tablet 550 mg PO BID multivitamin with folic acid [Tab-A-Jesse] 400 mcg tablet 1 tab PO DAILY Referrals: Jany Baig DO [Primary Care Provider] - Print Language: Lao
--- NOTE | 2024-09-02 10:26 | PC.NURSE ---
patient resting comfortably on stretcher. sleeping at this time. even unlabored respirations. awaiting addition services consult.
--- NOTE | 2024-09-02 11:32 | MHC.RECOVRN ---
Addendum entered by Patrick Montana RN 09/02/24 13:41: Still waiting for BAL to be done. Cannot refer pt without a complete utox and BAL. Original Note: Met with Bill in ED 22H to discuss ongoing alcohol use. Pt stated he is unable to control his drinking and that he really needs support with detoxification. He stated that for months now he has been drinking daily and getting black out drunk. He recently had a fall from the stairs to the liquor store due to being intoxicated. He reported drinking whatever I get my hands on including 3 Natty Daddy beers and shots of whiskey. Patient's most recent period of sobriety was a couple of years ago for 4 years- During that time pt was incarcerated so he had no access to alcohol. 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 He is motivated to go to treatment as, in his own words I have a 15 year old son I need to be there for . He denied SI/HI (no ideation, plan, or intent) and denied AH/VH. He has an extensive history of ATS/[facility] admissions including at [facility], [facility], [facility] in [place], and [facility]. He is not a but his father was. He stated his 2 brothers have of overdoses. His father of cirrhosis of the liver. Bill currently has liver cirrhosis. He agreed for referrrals to be made to ATS facilities on his behalf. He is willing to go anywhere for ATS. As soon as Utox is completed referrals will be sent on his behalf.
[2024-09-02 12:09] LABS: Amphetamine Screen Urine Not Detected (Not Detect); Barbiturates, Urine Not Detected (Not Detect); Benzodiazepines Screen Urine Not Detected (Not Detect); Buprenorphine Scr Not Detected (Not Detect); Cannabinoid Screen Urine Not Detected (Not Detect); Cocaine Screen Urine POSITIVE (Not Detect); Fentanyl, urine Not Detected (Not Detect); Methadone Screen, Urine Not Detected (Not Detect); Opiate Screen Urine Not Detected (Not Detect); Oxycodone Screen Urine Not Detected (Not Detect); Phencyclidine Screen Urine Not Detected (Not Detect)
[2024-09-02 12:55] VITALS: BP 121/73; PULSE 77; RESP 14; O2SAT 99
[2024-09-02 15:13] LABS: Ethanol < 10 mg/dL
--- NOTE | 2024-09-02 15:30 | MHC.RECOVRN ---
ATS referrals have been made to the following facilities for review: 1. [facility] 2. [facility]. [facility]. [facility]. [facility] per No, no beds available [facility] - pt is still under review [facility] - no beds [facility] - no beds available as of now, male bed may become available later today. [facility] - pt is still under review. Will continue to advocate for placement.
--- NOTE | 2024-09-02 16:57 | PC.NURSE ---
Assumed care of patient at 1630, patient is calm and cooperative, offering no complaints to this RN. patient typically walks with a cane at baseline due to being legally blind, patient was provided with walker in the pod which he happily agreed to. patient changed from medical scrubs to pod attire. Now resting in 2 listening to TV. Pending detox bedsearch
--- NOTE | 2024-09-02 17:53 | PC.NURSE ---
Patient belongings not inventoried in ER, all belongings placed in locker 2
--- NOTE | 2024-09-02 19:35 | PC.NURSE ---
Patient was accepted to [facility] in [place]. Admission intake per dyllan at [facility] [phone]. Care team is scheduling a ride for patient.
[2024-09-02 19:57] VITALS: BP 146/83; PULSE 93; RESP 18; TEMP 36.8; O2SAT 99
== END 2024-09-02 20:02 | disposition other institution (70) ==
PROVIDERS: Emergency Provider Emergency Medicine; PCP Pediatrics
DX: F10.20 Alcohol dependence, uncomplicated (principal); Y90.0 Blood alcohol level of less than 20 mg/100 ml; S50.01XA Contusion of right elbow, initial encounter; S30.0XXA Contusion of lower back and pelvis, initial encounter; W10.8XXA Fall (on) (from) other stairs and steps, initial encounter; I10 Essential (primary) hypertension; Z59.00 Homelessness unspecified; Z79.899 Other long term (current) drug therapy; Y93.89 Activity, other specified; Y92.9 Unspecified place or not applicable; Y99.9 Unspecified external cause status
CPT/HCPCS: 36415; 72100; 73070; 80307; 99284; S9485

== ENCOUNTER → 2024-09-02 03:15 | Outpatient (BNV) | payer OTHER, SELFPAY | PROVIDERS: PCP Pediatrics; Visit Provider Radiology Diagnostic Radiology | DX: M51.360 Other intervertebral disc degeneration, lumbar region with discogenic back pain only (principal); M25.521 Pain in right elbow; W19.XXXA Unspecified fall, initial encounter | CPT/HCPCS: 72100; 73070 ==

== ENCOUNTER 2024-10-27 10:30 | Emergency (ER) | payer OTHER, SELFPAY ==
--- NOTE | ~2024-10-27 | XR_ITS ---
EXAMINATION: XR BILATERAL HIPS WITH AP PELVIS CLINICAL INFORMATION: fall, pain COMPARISON: None available. TECHNIQUE: AP view of the pelvis and 2 views of each hip were obtained. FINDINGS: Normal bone mineralization. No acute fracture or malalignment identified. Intramedullary eduardo within the right femur from prior injury. No acute periprosthetic abnormality. There are mild degenerative changes in both hip joints. No soft tissue abnormalities. XR/XR hip BI w PEL1V IMPRESSION: No acute bony abnormalities. Electronically signed by: Jeffrey Conway MD 10/27/2024 11:35 AM EDT
--- NOTE | ~2024-10-27 | XR_ITS ---
EXAMINATION: XR LUMBOSACRAL SPINE CLINICAL INFORMATION: fall, pain COMPARISON: 09/02/2024. TECHNIQUE: Three views of the lumbosacral spine. FINDINGS: Normal bone mineralization. Transitional lumbosacral anatomy with a partially sacralized L5 vertebral body. There is a minimal levoconvex scoliosis, apex at L4. There is a normal lordosis. There is normal alignment without subluxation. No compression deformities, fractures, or suspicious bone lesions. Mild degenerative disc changes most notable L4-5 and L5-S1. Normal facet alignment. Degenerative facet changes L4-S1. Soft tissues demonstrate a TIPS catheter in place and coil material within the gastroduodenal artery and a second artery overlying the epigastric region. XR/XR lumbar spine 2-3V IMPRESSION: 1. No acute abnormality of the lumbar spine. 2. Mild to moderate degenerative spondylosis. Electronically signed by: Jeffrey Conway MD 10/27/2024 11:39 AM EDT
[2024-10-27 10:36] VITALS: BP 170/90; PULSE 89; O2SAT 98
[2024-10-27 10:39] VITALS: BP 139/71; PULSE 90; RESP 20; TEMP 37; O2SAT 97; BMI 27.8
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
--- OUTSIDE RECORDS SUMMARY | 2024-10-27 11:20 | XMS_ITS | Clinical Summary ---
Author Organization [facility] Address [address] [place] [address] Phone Care Team Providers Care Strategic Sourcing Manager Name Role Phone LucieyousifJany vu Dav Primary Care Provider Allergies No known active allergies Medications amLODIPine (NORVASC) 5 mg tablet Take 1 tablet (5 mg total) by mouth 1 (one) time each day. 4 Active escitalopram (LEXAPRO) 5 mg tablet Take 1 tablet (5 mg total) by mouth 1 (one) time each day. 5 Active folic acid (FOLVITE) 1 mg tablet Take 1 tablet (1 mg total) by mouth 1 (one) time each day. 4 Active furosemide (LASIX) 20 mg tablet Take 1 tablet (20 mg total) by mouth 1 (one) time each day. 3 Active hydrOXYzine pamoate (VISTARIL) 25 mg capsule Take 3 capsules (75 mg total) by mouth at bedtime. 4 Active pantoprazole (PROTONIX) 40 mg EC tablet Take 1 tablet (40 mg total) by mouth 1 (one) time each day before breakfast. 4 Active spironolactone (ALDACTONE) 25 mg tablet Take 1 tablet (25 mg total) by mouth 1 (one) time each day. 4 Active thiamine 100 mg tablet Take 1 tablet (100 mg total) by mouth 1 (one) time each day. 4 Active traZODone (DESYREL) 50 mg tablet Take 1 tablet (50 mg total) by mouth at bedtime. 3 Active fluticasone propionate (FLONASE) 50 mcg/actuation nasal spray Administer 2 sprays into each nostril 1 (one) time each day. 4 Active acamprosate (CAMPRAL) 333 mg EC tablet Take 1 tablet (333 mg total) by mouth 3 (three) times a day. Active Active Problems No known active problems Encounters Date Type Department Care Team Description 09/01/2024 8:39 PM EDT - 09/01/2024 11:03 PM EDT Emergency [facility] Emergency [address] [place] [id number] Nausea (Primary Dx); Right elbow pain Discharge Disposition: Home or Self Care 08/11/2024 3:53 AM EST - 08/11/2024 4:39 AM EST Emergency [facility] Emergency [address] [place] [phone] Sprain of right ankle, initial encounter (Primary Dx) Discharge Disposition: Home or Self Care from Last 3 Months Medical History Medical History Date Comments Cirrhosis (CMS/HCC V24, CMS/[facility] V28) ETOH abuse HTN (hypertension) Social History Tobacco Use Types Packs/Day Years Used Date Smoking Tobacco: Every Day Cigarettes Smokeless Tobacco: Never Tobacco Cessation:Ready to Q uit: Not Asked; Counseling Given: Not Answered Alcohol Use Standard Drinks/Week Comments Yes 0 (1 standard drink = 0.6 oz pur e alcohol) Sex and Gender Information Value Date Recorded Sex Assigned at Male 09/01/2024 8:49 PM EDT Legal Sex Male 1:58 PM EST Gender Identity Male 09/01/2024 8:49 PM EDT Sexual Orientation Choose not to disclose 2024 8:49 PM EDT Obstetrics History Last Filed Vital Signs Vital Sign Reading Time Taken Comments Blood Pressure 141/90 09/01/2024 10:55 PM EDT Pulse 88 09/01/2024 10:55 PM EDT Temperature 36.4 ??C (97.5 ??F) 09/01/2024 7:54 PM ED T Respiratory Rate 18 09/01/2024 4:13 PM EDT Oxygen Saturation 100% 09/01/2024 10:55 PM EDT Inhaled Oxygen Concentration - - Weight 81.6 kg (180 lb) 09/01/2024 4:13 PM EDT Height 175.3 cm (5' 9 ) 09/01/2024 4:13 PM EDT Body Mass Index 26.58 09/01/2024 4:13 PM EDT Plan of Treatment Health Maintenance Due Date Last Done Comments Hepatitis A Vaccines (1 of 2 - Risk 2-dose series) 02/22/1992 Pneumococcal Vaccine: 50+ Years (2 of 2 - PCV) 03/16/2016 03/16/2015, 08/02/2012 Pneumococcal Vaccine: Pediatrics (0 to 5 Years) and At-Risk Patients (6 to 64 Years) (2 of 2 - PCV) 03/16/2016 03/16/2015, 08/02/2012 Cholesterol Screening (Lipid Panel) 05/13/2022 Colorectal Cancer Screening: Colonoscopy 05/13/2022 Depression Screening 05/13/2022 HIV Screening 05/13/2022 Hepatitis C Screening 05/13/2022 Social Influencers of Health Screening 05/13/2022 Zoster Vaccines (1 of 2) 2023 COVID-19 Vaccine (3 - season) 2024 04/08/2021, 03/10/2021 Hypertension/CHF/CAD Annual BMP Blood Test 09/01/2025 09/01/2024, 06/28/2024, 06/22/2024 DTaP,Tdap,and Td Vaccines (3 - Td or Tdap) 06/22/2028 06/22/2018, 11/25/2015 Hepatitis B Vaccines Completed 03/01/2020, 10/09/2019, 10/09/2019, Additional history exists Influenza Vaccine Completed 06/18/2024, , 03/10/2021, Additional history exists HIB Vaccines Aged Out No longer eligi ble based on patient's age to complete this topic HPV Vaccines Aged Out No longer eligi ble based on patient's age to complete this topic IPV Vaccines Aged Out No longer eligi ble based on patient's age to complete this topic MMR Vaccines Aged Out No longer eligi ble based on patient's age to complete this topic Meningococcal ACWY Vaccine Aged Out N o longer eligible based on patient's age to complete this topic Meningococcal B Vaccine Aged Out No l onger eligible based on patient's age to complete this topic RSV Immunization Patients Under 20 months Aged Out No longer eligible based on patient's age to complete this topic Varicella Vaccines Aged Out No longer eligible based on patient's age to complete this topic Procedures Procedure Name Priority Date/Time Associated Diagnosis Comments XR ELBOW 3+ VIEWS RIGHT STAT 09/01/2024 6:24 PM EDT CBC WITH AUTO DIFFERENTIAL STAT 09/01/2024 4:23 PM EDT LIPASE STAT 09/01/2024 4:23 PM EDT COMPREHENSIVE METABOLIC PANEL STAT 09/01/2024 4:23 PM EDT CBC AND DIFFERENTIAL STAT 09/01/2024 4:23 PM EDT XR KNEE 4+ VIEWS RIGHT STAT 4:00 AM EST XR ANKLE 3+ VIEWS RIGHT STAT 08/11/2024 4:00 AM EST from Last 3 Months Results * XR Elbow 3+ Views Right (09/01/2024 6:24 PM EDT) Anatomical Region Laterality Modality Upper Extremities, Elbow Right Radiogr aphic Imaging 09/02/2024 10:3 1 AM EDT Impressions 09/02/2024 10:31 AM EDT Impression: 1. No evidence of fracture. 2. Posterior soft tissue swelling. Telerad HELEN ([id number]) -------- FINAL REPORT -------- Dictated By: Lili Langston Dictated Date: 09/02/2024 10:31 ET Assigned Physician: Lili Langston Reviewed and Electronically Signed By: Lili Langston Signed Date: 09/02/2024 10:31 ET Workstation ID: [id number] Transcribed By: Self Edit Transcribed Date: 09/02/2024 10:31 ET Narrative 09/02/2024 10:31 AM EDT History: Right elbow pain and bruising since fall 5 days ago. Findings: AP, oblique and lateral views of the right elbow. Soft tissue swelling is seen along the olecranon. No fracture or dislocation is identified. The articular spaces are well-maintained. No displacement of the fat pads is seen to suggest a joint effusion. Procedure Note Lili Langston MD - 09/02/2024 History: Right elbow pain and bruising since fall 5 days ago. Findings: AP, oblique and lateral views of the right elbow. Soft tissue swelling isseen along the olecranon. No fracture or dislocation is identified. Thearticular spaces are well-maintained. No displacement of the fat pads isseen to suggest a joint effusion. IMPRESSION: Impression: 1. No evidence of fracture. 2. Posterior soft tissue swelling. Telerad HELEN ([id number]) -------- FINAL REPORT -------- Dictated By: Lili Langston Dictated Date: 09/02/2024 10:31 ET Assigned Physician: Lili Langston Reviewed and Electronically Signed By: Lili Langston Signed Date: 09/02/2024 10:31 ET Workstation ID: [id number] Transcribed By: Self Edit Transcribed Date: 09/02/2024 10:31 ET Brandon Herbert MD IMG XR PROCEDURES Final Result * (ABNORMAL) CBC auto differential (09/01/2024 4:23 PM EDT) WBC 3.2(L) 4.8 - 10.8 K/mcL LAB HEMETOLOGY METHOD 09/01/2024 5:02 PM EDT [facility] RBC 4.30(L) 4.50 - 5.50 M/mcL LAB HEMETOLOGY METHOD 09/01/2024 5:02 PM EDT [facility] Hemoglobin 13.5 13.5 - 17.5 g/dL LAB HEMETOLOGY METHOD 09/01/2024 5:02 PM EDT [facility] Hematocrit 41.2(L) 42.0 - 54.0 % LAB HEMETOLOGY METHOD 09/01/2024 5:02 PM EDT [facility] MCV 95.6 79.0 - 98.0 FL [facility] MCH 31.3 27.0 - 32.0 pcg LAB HEMETOLOGY METHOD 09/01/2024 5:02 PM [facility] MCHC 32.8 32.0 - 37.0 g/dL LAB HEMETOLOGY METHOD 09/01/2024 5:02 PM [facility] RDW 17.2(H) 11.0 - 15.0 % LAB HEMETOLOGY METHOD 09/01/2024 5:02 PM [facility] Platelets 81(L) 130 - 400 K/mcL LAB HEMETOLOGY METHOD 09/01/2024 5:02 PM [facility] Comment:previously verified by slide MPV 11.7(H) 7.0 - 11.0 FL LAB HEMETOLOGY METHOD 09/01/2024 5:02 PM [facility] NRBC 0.0 <1.0 % LAB HEMETOLOGY METHOD 09/01/2024 5:02 PM [facility] NRBC Absolute 0.00 <0.10 K/mcL LAB HEMETOLOGY METHOD 09/01/2024 5:02 PM [facility] Neutrophils Relative 43.3 % LAB HEMETOLOGY METHOD 09/01/2024 5:02 PM [facility] Lymphocytes Relative 37.5 % LAB HEMETOLOGY METHOD 09/01/2024 5:02 PM [facility] Monocytes Relative 15.2 % LAB HEMETOLOGY METHOD 09/01/2024 5:02 PM [facility] Eosinophils Relative 2.8 % LAB HEMETOLOGY METHOD 09/01/2024 5:02 PM [facility] Basophils Relative 0.9 % LAB HEMETOLOGY METHOD 09/01/2024 5:02 PM EDT [facility] Immature Granulocytes Relative 0.3 % LAB HEMETOLOGY METHOD 09/01/2024 5:02 PM EDT [facility] Neutrophils Absolute 1.40(L) 1.50 - 7.00 K/mcL LAB HEMETOLOGY METHOD 09/01/2024 5:02 PM EDT [facility] Lymphocytes Absolute 1.21 1.00 - 5.00 K/mcL LAB HEMETOLOGY METHOD 09/01/2024 5:02 PM EDT [facility] Monocytes Absolute 0.49 0.20 - 1.00 K/mcL LAB HEMETOLOGY METHOD 09/01/2024 5:02 PM EDT [facility] Eosinophils Absolute 0.09 0.00 - 0.50 K/mcL LAB HEMETOLOGY METHOD 09/01/2024 5:02 PM EDT [facility] Basophils Absolute 0.03 0.00 - 0.20 K/mcL LAB HEMETOLOGY METHOD 09/01/2024 5:02 PM EDT [facility] Immature Granulocytes Absolute 0.01 0.00 - 0.03 K/mcL LAB HEMETOLOGY METHOD 09/01/2024 5:02 PM EDT [facility] Blood Venous blood specimen / Unknown Venipuncture / Unknown 09/01/2024 4:23 PM EDT 09/01/2024 4:48 PM EDT us Brandon Herbert MD LAB BLOOD ORDERABLES Final Resu lt [facility] [address] [place] [address], * (ABNORMAL) Lipase (09/01/2024 4:23 PM EDT) Lipase 89(H) 13 - 75 unit/L LAB CHEMISTRY METHOD 09/01/2024 5:36 PM EDT [facility] Blood Venous blood specimen / Unknown Venipuncture / Unknown 09/01/2024 4:23 PM EDT 09/01/2024 4:48 PM EDT us Brandon Erika Herbert MD LAB BLOOD ORDERABLES Final Resu lt [facility] [address] [place] [address], * (ABNORMAL) Comprehensive metabolic panel (09/01/2024 4:23 PM EDT) Sodium 141 133 - 145 mmol/L LAB CHEMISTRY METHOD 09/01/2024 5:36 PM [facility] Potassium 4.8 3.5 - 5.5 mmol/L LAB CHEMISTRY METHOD 09/01/2024 5:36 PM [facility] Chloride 112(H) 96 - 110 mmol/L LAB CHEMISTRY METHOD 09/01/2024 5:36 PM [facility] CO2 23 21 - 32 mmol/L LAB CHEMISTRY METHOD 09/01/2024 5:36 PM [facility] Anion Gap 6 3 - 11 LAB CHEMISTRY METHOD 09/01/2024 5:36 PM [facility] Glucose 111(H) 70 - 100 mg/dL LAB CHEMISTRY METHOD 09/01/2024 5:36 PM [facility] BUN 8 5 - 25 mg/dL LAB CHEMISTRY METHOD 09/01/2024 5:36 PM [facility] Creatinine 0.68(L) 0.70 - 1.30 mg/dL LAB CHEMISTRY METHOD 09/01/2024 5:36 PM [facility] eGFR 113 >=60 mL/min/1. 73m2 LAB CHEMISTRY METHOD 09/01/2024 5:36 PM [facility] Comment:Calculation based on the??Chronic Kidney Disease Epidemiology Collaboration (CKD-EPI) equation refit??without adjustment for race. BUN/Creatinine Ratio 11.8 LAB CHEMISTRY METHOD 09/01/2024 5:36 PM EDT [facility] Calcium 8.8 8.5 - 10.5 mg/dL LAB CHEMISTRY METHOD 09/01/2024 5:36 PM T [facility] AST (SGOT) 59(H) 10 - 42 unit/L LAB CHEMISTRY METHOD 09/01/2024 5:36 PM T [facility] ALT (SGPT) 48 10 - 60 unit/L LAB CHEMISTRY METHOD 09/01/2024 5:36 PM T [facility] Alkaline Phosphatase 212(H) 42 - 121 unit/L LAB CHEMISTRY METHOD 09/01/2024 5:36 PM EDT [facility] Total Protein 6.4 6.0 - 8.0 g/dL LAB CHEMISTRY METHOD 09/01/2024 5:36 PM EDT [facility] Albumin 2.7(L) 3.2 - 5.0 g/dL LAB CHEMISTRY METHOD 09/01/2024 5:36 PM T [facility] Total Bilirubin 1.2 0.0 - 1.4 mg/dL LAB CHEMISTRY METHOD 09/01/2024 5:36 PM EDT [facility] Blood Venous blood specimen / Unknown Venipuncture / Unknown 09/01/2024 4:23 PM EDT 09/01/2024 4:48 PM EDT us Brandno Herbert MD LAB BLOOD ORDERABLES Final Resu lt [facility] [address] [place] [address], * XR Ankle 3+ Views Right (08/11/2024 4:00 AM EST) Anatomical Region Laterality Modality Lower Extremities, Ankle Right Radiogr aphic Imaging 08/11/2024 8:59 AM EST Impressions 08/11/2024 9:02 AM EST FINDINGS/IMPRESSION: Nondisplaced posterior calcaneal fracture, new compared to the prior exam, likely stress/insufficiency fracture. ??No additional fractures. ??Tibiotalar joint is preserved. ??Mild soft tissue swelling around the ankle. ??Achilles enthesopathy. -------- FINAL REPORT -------- Dictated By: SHANNON BARON Dictated Date: 08/11/2024 08:59 ET Assigned Physician: SHANNON BARON Reviewed and Electronically Signed By: SHANNON BARON Signed Date: 08/11/2024 09:02 ET Workstation ID: [id number] Transcribed By: Self Edit Transcribed Date: 08/11/2024 08:59 ET Narrative 08/11/2024 9:02 AM EST XR ANKLE 3+ VIEWS RIGHT INDICATION: ??Pain TECHNIQUE: XR ANKLE 3+ VIEWS RIGHT COMPARISON: 06/25/2024 Procedure Note Shannon Baron MD - 08/11/2024 XR ANKLE 3+ VIEWS RIGHT INDICATION: Pain TECHNIQUE: XR ANKLE 3+ VIEWS RIGHT COMPARISON: 06/25/2024 IMPRESSION: FINDINGS/IMPRESSION: Nondisplaced posterior calcaneal fracture, new compared to the prior exam,likely stress/insufficiency fracture. No additional fractures.Tibiotalar joint is preserved. Mild soft tissue swelling around theankle. Achilles enthesopathy. -------- FINAL REPORT -------- Dictated By: SHANNON BARON Dictated Date: 08/11/2024 08:59 ET Assigned Physician: SHANNON BARON Reviewed and Electronically Signed By: SHANNON BARON Signed Date: 08/11/2024 09:02 ET Workstation ID: [id number] Transcribed By: Self Edit Transcribed Date: 08/11/2024 08:59 ET Saw Ruffin DO IMG XR PROCEDURES Final Result * XR Knee 4+ Views Right (08/11/2024 4:00 AM EST) Anatomical Region Laterality Modality Lower Extremities, Knee Right [facility] 08/11/2024 9:01 AM EST Impressions 08/11/2024 9:01 AM EST FINDINGS/IMPRESSION: No acute fracture or dislocation. ??Joint spaces are preserved. ??No knee effusion. ??Mild soft tissue swelling around the knee. ??Femoral fixation hardware partially visualized. -------- FINAL REPORT -------- Dictated By: SHANNON BARON Dictated Date: 08/11/2024 09:01 ET Assigned Physician: SHANNON BARON Reviewed and Electronically Signed By: SHANNON BARON Signed Date: 08/11/2024 09:01 ET Workstation ID: [id number] Transcribed By: Self Edit Transcribed Date: 08/11/2024 09:01 ET Narrative 08/11/2024 9:01 AM EST XR KNEE 4+ VIEWS RIGHT INDICATION: ??Pain TECHNIQUE: XR KNEE 4+ VIEWS RIGHT COMPARISON: No priors available. Procedure Note Shannon Baron MD - 08/11/2024 XR KNEE 4+ VIEWS RIGHT INDICATION: Pain TECHNIQUE: XR KNEE 4+ VIEWS RIGHT COMPARISON: No priors available. IMPRESSION: FINDINGS/IMPRESSION: No acute fracture or dislocation. Joint spaces arepreserved. No knee effusion. Mild soft tissue swelling around the knee.Femoral fixation hardware partially visualized. -------- FINAL REPORT -------- Dictated By: SHANNON BARON Dictated Date: 08/11/2024 09:01 ET Assigned Physician: SHANNON BARON Reviewed and Electronically Signed By: SHANNON BARON Signed Date: 08/11/2024 09:01 ET Workstation ID: [id number] Transcribed By: Self Edit Transcribed Date: 08/11/2024 09:01 ET Saw Ruffin DO IMG XR PROCEDURES Final Result from Last 3 Months Insurance MEDICAID Advance Directives * Full Code - Confirmed (Latest Code Status on File) Date Activated Date Inactivated Comments 06/28/2024 9:16 AM 06/30/2024 7:[address] at[facility] was ascertained in the following way: Code status discussion: discussion with patient To update the patient's code status, place a code status order. Do not modify or discontinue any currently active code status orders. Care Teams Strategic Sourcing Manager Relationship Specialty Start Date End Date Jany Baig DO [address] [place] [address] PCP - General Pediatrics 04/17/24
--- OUTSIDE RECORDS SUMMARY | 2024-10-27 11:20 | XMS_ITS | Clinical Summary ---
Author Organization [facility] Address [address] [place] [address] Care Team Providers Care Life Teacher Name Role Phone Unavailable Primary Care Provider Unavailabl e Medications Acamprosate Calcium (CAMPRAL) 333 MG EC tablet Take 666 mg by mouth 3 (three) times a day. Active amLODIPine Besylate (NORVASC) 5 MG tablet Take 5 mg by mouth 1 (one) time each day. Active Escitalopram (Lexapro) 5 MG tablet Take 5 mg by mouth 1 (one) time each day. Active Fluticasone Propionate (FLONASE ALLERGY RELIEF NA) Administer into affected nostril(s). Active Folic Acid (FOLVITE) 1 MG tablet Take 1 mg by mouth 1 (one) time each day. Active Furosemide (LASIX) 20 MG tablet Take 20 mg by mouth 2 (two) times a day. Active Vistaril 25 MG capsule Take 25 mg by mouth if needed for itching (3 capsules at night). Active Pantoprazole Sodium (Protonix) 40 MG EC tablet Take 40 mg by mouth 1 (one) time each day before breakfast. Active Spironolactone (Aldactone) 25 MG tablet Take 25 mg by mouth 1 (one) time each day. Active Thiamine HCl (VITAMIN B-1) 100 MG tablet Take 100 mg by mouth 1 (one) time each day. Active traZODone (DESYREL) 50 MG tablet Take 50 mg by mouth. Active Active Problems Problem Noted Date Diagnosed Date Alcoholic cirrhosis of liver without ascites Overview (07/14/2024): 07/10/2024 Will check lft. No clinical sx at this time. Impaired mobility 07/10/2024 Overview (07/14/2024): PLOF: ambulationmod I unlimited transfers Ind other mod I stairs Baseline upon admission: ambulation 100ft sba Transfers supervised Goal: ambulation mod I 200 ft transfers ind other 1 flight of stairs mod I 07/10/2024 Ambulating with no AD with sba. Ascends and descends 10 stairs with 1 rail. Transfers with no AD with supervision. Alcohol dependence 07/10/2024 Overview (07/14/2024): 07/10/2024 per hospital documentation etoh dep. Tox screen negative. CIWA score negative. Managed on acomprosate. Per pharm this is on back order. As an alternative will begin topamax daily. Monitor for side effects. Pancytopenia 07/10/2024 Overview (07/14/2024): 07/10/2024 Wbc 3.8 hgb11.2 Hct 32.6 Plt 90 Will recheck and refer to heme as appropriate Spinal stenosis 07/10/2024 Overview (07/14/2024): 07/10/[address] in the hospital multi level degen disc changes causing atleast Mild stenosis cervical spine Alcoholic hepatitis 07/05/2024 Blindness 07/05/2024 Primary hypertension 07/05/2024 Overview (07/14/2024): 07/10/2024 Managed on lasix and amlodipine . Will monitor bps manually and adjust meds as needed. Neuropsychiatric disorder 07/05/2024 Fall 07/05/2024 Overview (07/14/2024): 07/10/2024 sp hospitalization. Per notes tripped on the curb at the bus stop. Minimal injury including bruised elbow and mild pain in right ankle. Will order ice to right elbow as needed . Will order wraps to right ankle daily. Social History Tobacco Use Types Packs/Day Years Used Date Smoking Tobacco: Never Assessed Sex and Gender Information Value Date Recorded Sex Assigned at Not on file Legal Sex Male 4:04 PM EST Gender Identity Not on file Sexual Orientation Not on file Plan of Treatment Health Maintenance Due Date Last Done Comments Hepatitis C Screening 1973 DTaP/Tdap/Td (1 - Tdap) 1991 Hep A (1 of 2 - Risk 2-dose series) 02/22/1992 Hep B (1 of 3 - 19+ 3-dose series) 02/22/1992 Pneumococcal 50+ years (1 of 2 - PCV) 02/22/1992 Colon Cancer Screening 2018 Zoster (Shingrix) (1 of 2) 2023 COVID-19 Vaccine (1 - 2023-2 5 season) 2024 Influenza (#1) 2024 HPV Vaccine Aged Out No longer eligi ble based on patient's age to complete this topic Hib Aged Out No longer eligi ble based on patient's age to complete this topic Meningococcal ACWY Aged Out No longer eligible based on patient's age to complete this topic Insurance [facility] FFS [employer] Care Teams Life Teacher Relationship Specialty Start Date End Date Jany Baig Primary Care Provider 07/05/24
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
[2024-10-27 11:29] LABS: MANUAL DIFF FLAG NO
[2024-10-27 11:35] LABS: Basophils Percent Auto 0.7 % (0-2); Eosinophils Absolute Auto 0.1 X10*3/uL (0.0-0.4); Eosinophils Percent Auto 4.6 % (0-4); Hematocrit 33.8 % (42.0-52.0); Hemoglobin 11.6 g/dl (14.0-18.0); Imm Gran Abs Auto 0.01 X10*3/uL (0.00-0.03); Imm Gran Pct Auto 0.3 % (0.0-0.4); Lymphocytes Absolute Auto 1.3 X10*3/uL (1.2-4.9); Lymphocytes Percent Auto 42.6 % (20-40); Mean Corpuscular HGB Conc 34.3 g/dl (31.0-36.0); Mean Corpuscular Hemoglobin 31.3 pg (27.0-33.0); Mean Corpuscular Volume 91.1 fL (80.0-98.0); Monocytes Absolute Auto 0.4 X10*3/uL (0.1-1.2); Monocytes Percent Auto 12.5 % (2-11); Neutrophils Absolute Auto 1.2 x10*3/uL (2.0-8.3); Neutrophils Percent Auto 39.3 % (45-73); Red Blood Count 3.71 X10*6/uL (4.60-5.80); Red Cell Distribution Width 16.3 % (11.0-16.0); White Blood Count 3.1 X10*3/uL (4.8-10.8)
[2024-10-27 11:36] LABS: Platelet Count 63 X10*3/uL (160-400)
[2024-10-27 11:50] LABS: Acetaminophen LAB < 3 mcg/mL (<30); Alanine Aminotransferase 42 U/L (0-40); Albumin Level 2.7 g/dL (3.5-5.0); Alkaline Phosphatase 132 U/L (39-117); Anion Gap 8 (12-20); Aspartate Amino Transferase 70 U/L (5-37); Bilirubin Total 1.8 mg/dL (0.0-1.0); Blood Urea Nitrogen 6 mg/dL (9-16); Calcium 7.9 mg/dL (8.4-10.2); Carbon Dioxide 21 mmol/L (22-29); Chloride 116 mmol/L (96-108); Creatinine Clr Calc Pharmacy 141.2; Estimated Glomerular Filt Rate > 60; Ethanol < 10 mg/dL; Glucose Random 107 mg/dL (60-115); Lipase 54 U/L (8-78); Potassium 3.9 mmol/L (3.3-5.1); Salicylate < 5.0 mg/dL (15-30); Sodium 141 mmol/L (135-145); Total Protein 5.6 g/dL (6.5-8.0)
[2024-10-27 12:13] VITALS: BP 127/71; PULSE 77; RESP 18; TEMP 36.8; O2SAT 97
[2024-10-27] MEDS: Ibuprofen 600 MG TABLET PO (12:15)
[2024-10-27 13:44] LABS: Appearance Urine Clear; Color Urine Dark Yellow; Glucose Urine UA Negative (Negative); Leukocyte Esterase Urine Negative (Negative); Nitrite Urine Negative (Negative); Urine Blood Negative (Negative); Urine Ketones Trace mg/dL (Negative); Urine Protein Negative (Neg-Trace)
[2024-10-27 13:54] LABS: Amphetamine Screen Urine Not Detected (Not Detect); Barbiturates, Urine Not Detected (Not Detect); Benzodiazepines Screen Urine Not Detected (Not Detect); Buprenorphine Scr Not Detected (Not Detect); Cannabinoid Screen Urine Not Detected (Not Detect); Cocaine Screen Urine POSITIVE (Not Detect); Fentanyl, urine Not Detected (Not Detect); Methadone Screen, Urine Not Detected (Not Detect); Opiate Screen Urine Not Detected (Not Detect); Oxycodone Screen Urine Not Detected (Not Detect); Phencyclidine Screen Urine Not Detected (Not Detect)
--- NOTE | 2024-10-27 14:39 | HO.ADDICT_ITS ---
History of Present Illness Date of Service: 10/27/2024 Chief Complaint: Fall from sidewalk. L back pain/ Crisis Reason for Consult: AUD ?ATS Sources of Information: patient interviewed and chart reviewed HPI Narrative: Patient is a 49 year old male with history of AUD, who presented to [facility] ED after a fall and requested assistance with ATS admission. Patient seen in 16H of main ED. Sleeping upon arrival, but wakes easily. He reports that he has not had a drink in about 3 days, and denies any withdrawal sx States he was drinking between 2-4 natty daddies daily. He shared that he was hoping to get admitted to [facility]. States he had recently been discharged from [facility] and was supposed to present to [facility], however it is unclear what transpired that he was not able to make it there. He is currently unhoused, staying in [place], at times with a friend. CIWA score 0. He denies any withdrawal sx prior to ED admission. Labs reviewed Review of Systems Constitutional: Reports as per HPI and Reports no additional constitutional complaints Gastrointestinal: Denies abdominal pain, Denies loose stools and Denies nausea Diagnostics Vital Signs (24Hr): Vital Signs - 24 hr 10/27/24 10:39 10/27/24 12:13 Temperature 98.6 F 98.2 F Pulse Rate 90 77 Respiratory Rate 20 18 Blood Pressure 139/71 127/71 Pulse Oximetry 97 97 Oxygen Delivery Method Room Air Room Air BMI result Body Mass Index 27.8 Labs 10/27/24 11:18 10/27/24 11:18 Labs: Laboratory Results - last 48 hr 10/27/24 10/27/24 11:18 13:35 WBC 3.1 L RBC 3.71 L Hgb 11.6 L Hct 33.8 L MCV 91.1 MCH 31.3 MCHC 34.3 RDW 16.3 H Plt Count 63 L D MPV 11.0 Immature Gran % (Auto) 0.3 Neut % (Auto) 39.3 L Lymph % (Auto) 42.6 H [place] % (Auto) 12.5 H Eos % (Auto) 4.6 H Baso % (Auto) 0.7 Lymph # (Auto) 1.3 [place] # (Auto) 0.4 Eos # (Auto) 0.1 Baso # (Auto) 0.0 Abs Immat Gran (auto) 0.01 Absolute Neuts (auto) 1.2 L Absolute Nucleated RBC 0.000 Nucleated RBC % (auto) 0.0 Sodium 141 Potassium 3.9 Chloride 116 H Carbon Dioxide 21 L Anion Gap 8 L BUN 6 L Creatinine 0.67 Estim Creat Clear Calc 141.2 Estimated GFR > 60 Random Glucose 107 Calcium 7.9 L Total Bilirubin 1.8 H AST 70 H ALT 42 H Alkaline Phosphatase 132 H Total Protein 5.6 L Albumin 2.7 L Lipase 54 Urine Color Dark Yellow Urine Appearance Clear Urine pH 7.0 Ur Specific [place] 1.020 Urine Protein Negative Urine Glucose (UA) Negative Urine Ketones Trace Urine Blood Negative Urine Nitrite Negative Ur Leukocyte Esterase Negative Salicylates < 5.0 L Urine Opiates Screen Not Detected Ur Buprenorphine Scrn Not Detected Ur Oxycodone Screen Not Detected Urine Methadone Screen Not Detected Urine Fentanyl Screen Not Detected Acetaminophen < 3 Ur Barbiturates Screen Not Detected Ur Phencyclidine Scrn Not Detected Ur Amphetamines Screen Not Detected U Benzodiazepines Scrn Not Detected Urine Cocaine Screen POSITIVE H U Marijuana (THC) Screen Not Detected Ethyl Alcohol < 10 Imaging Radiology Impressions: ITS Impressions Hip/Pelvis X-Ray 10/27/24 11:05 IMPRESSION: No acute bony abnormalities. Electronically signed by: Jeffrey Conway MD 10/27/2024 11:35 AM EDT Lumbar Spine X-Ray 10/27/24 11:05 IMPRESSION: 1. No acute abnormality of the lumbar spine. 2. Mild to moderate degenerative spondylosis. Electronically signed by: Jeffrey Conway MD 10/27/2024 11:39 AM EDT Mental Status Exam Mental Status Exam Patient Appearance: Appropriate Level of Consciousness: Awake, Appropriate and Alert Patient Behavior: Appropriate, Talkative and Cooperative Affect Description: Calm Speech Pattern: Clear Thought Process: Intact Thought Content: positive for Intact Judgement: Good Medications Allergies Allergies Allergy/AdvReac Type Severity Reaction Status Date / Time acetaminophen [From TYLENOL] Allergy Intermediate ULCERS Verified 10/27/24 10:39 aspirin [ASA] Allergy Unknown VOMITING Verified 10/27/24 10:39 BLOOD Assessment & Plan Assessment & Plan (1) Alcohol use disorder, moderate, dependence: Status: Acute Code(s): F10.20 - Alcohol dependence, uncomplicated Assessment and Plan: * no withdrawal sx reported or observed --per patient it has been 3 days since he a drink, unlikely to meet criteria for ATS level of care * patient states the wishes to be admitted to [facility] and states he has been in contact with [facility] * provided with resources and plans to go to [place] [facility] [place] tomorrow morning and seek additional recovery supports Total time managing care of this patient today _30___ minutes. PMFSH Past Medical History Medical History Cirrhosis Alcoholism Nasal fracture Legally blind Hypertension Depression Heart murmur Surgical History Surgical History S/P TIPS (transjugular intrahepatic portosystemic shunt) Social History Social History Unable to assess alcohol history related to: Refusing to respond Alcohol intake: current Alcohol intake frequency: 3 or more drinks per day Alcohol type: hard liquor Substance Use Type: Crack/Cocaine and Marijuana Advance Directives Date on File: 12/20/23
[2024-10-27 14:57] VITALS: BP 138/81; PULSE 77; RESP 20; TEMP 36.7; O2SAT 97
[2024-10-27 15:12] VITALS: BP 138/81; PULSE 77; RESP 20; TEMP 36.7; O2SAT 97
== END 2024-10-27 15:13 | disposition home or self-care (01) ==
PROVIDERS: Nurse Practitioner Family; Emergency Provider Emergency Medicine Emergency Medical Services; PCP Pediatrics
DX: F10.20 Alcohol dependence, uncomplicated (principal); Y90.0 Blood alcohol level of less than 20 mg/100 ml; M54.50 Low back pain, unspecified; S30.0XXA Contusion of lower back and pelvis, initial encounter; W10.1XXA Fall (on)(from) sidewalk curb, initial encounter; I10 Essential (primary) hypertension; H54.8 Legal blindness, as defined in USA; F99 Mental disorder, not otherwise specified; F19.10 Other psychoactive substance abuse, uncomplicated; Y93.01 Activity, walking, marching and hiking; Y92.480 Sidewalk as the place of occurrence of the external cause; Y99.9 Unspecified external cause status
CPT/HCPCS: 36415; 72100; 73521; 80053; 80143; 80179; 80307; 81003; 83690; 85025; 99284

== ENCOUNTER → 2024-10-27 10:43 | Outpatient (BNV) | payer OTHER, SELFPAY | PROVIDERS: Emergency Provider Emergency Medicine Emergency Medical Services; PCP Pediatrics; Visit Provider Nurse Practitioner Psychiatric/Mental Health | DX: F10.20 Alcohol dependence, uncomplicated (principal) | CPT/HCPCS: 99281 ==

== ENCOUNTER → 2024-10-27 11:05 | Outpatient (BNV) | payer OTHER, SELFPAY | PROVIDERS: Emergency Provider Emergency Medicine Emergency Medical Services; PCP Pediatrics; Visit Provider Radiology Diagnostic Radiology | DX: M54.17 Radiculopathy, lumbosacral region (principal); M16.0 Bilateral primary osteoarthritis of hip | CPT/HCPCS: 72100; 73521 ==

== ENCOUNTER 2024-12-13 20:07 | Emergency (ER) | payer OTHER, SELFPAY ==
[2024-12-13 20:24] VITALS: BP 121/66; PULSE 102; RESP 16; TEMP 36.8; O2SAT 96
[2024-12-13 20:31] VITALS: BP 121/66; BP 138/82; PULSE 102; PULSE 105; RESP 16; TEMP 36.8; O2SAT 96; O2SAT 97; BMI 27.3
[2024-12-13 20:52] LABS: MANUAL DIFF FLAG NO
[2024-12-13 20:53] LABS: Hematocrit 32.8 % (42.0-52.0); Hemoglobin 11.9 g/dl (14.0-18.0); Imm Gran Abs Auto 0.01 X10*3/uL (0.00-0.03); Imm Gran Pct Auto 0.2 % (0.0-0.4); Lymphocytes Absolute Auto 1.5 X10*3/uL (1.2-4.9); Mean Corpuscular HGB Conc 36.3 g/dl (31.0-36.0); Mean Corpuscular Hemoglobin 31.6 pg (27.0-33.0); Mean Corpuscular Volume 87.0 fL (80.0-98.0); NRBC Abs Auto 0.000 X10*3/uL (0.0-0.012); NRBC Pct Auto 0.0 /100WBC (0.0-0.2); Red Blood Count 3.77 X10*6/uL (4.60-5.80); White Blood Count 4.4 X10*3/uL (4.8-10.8)
[2024-12-13 20:55] LABS: Platelet Count 97 X10*3/uL (160-400)
[2024-12-13 20:59] LABS: Appearance Urine Clear; Glucose Urine UA Negative (Negative); PH 6.5 (5.0-9.0); Specific Gravity - Urine <= 1.005 (1.005-1.025); UMIC TRIGGER UACC YES
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
[2024-12-13 21:08] LABS: Cannabinoid Screen Urine Not Detected (Not Detect)
[2024-12-13 21:09] LABS: Alanine Aminotransferase 43 U/L (0-40); Albumin Level 3.4 g/dL (3.5-5.0); Alkaline Phosphatase 144 U/L (39-117); Anion Gap 14 (12-20); Aspartate Amino Transferase 65 U/L (5-37); Blood Urea Nitrogen 8 mg/dL (9-16); Calcium 8.2 mg/dL (8.4-10.2); Carbon Dioxide 16 mmol/L (22-29); Chloride 114 mmol/L (96-108); Creatinine Clr Calc Pharmacy 114.9; Estimated Glomerular Filt Rate > 60; Magnesium 2.3 mg/dL (1.6-2.6); Potassium 3.5 mmol/L (3.3-5.1); Sodium 140 mmol/L (135-145); Total Protein 6.5 g/dL (6.5-8.0)
[2024-12-13 21:15] LABS: Acetaminophen LAB < 3 mcg/mL (<30); Salicylate < 5.0 mg/dL (15-30)
--- NOTE | 2024-12-13 21:20 | PC.NURSE ---
pt changed over by security
[2024-12-13 22:23] VITALS: BP 142/76; PULSE 96; RESP 18; O2SAT 98
[2024-12-13] MEDS: OLANZapine 10 MG VIAL IM (22:23)
[2024-12-13 22:53] VITALS: BP 122/62; PULSE 94; RESP 18; O2SAT 96
[2024-12-13 23:23] VITALS: BP 124/59; PULSE 97; RESP 18; O2SAT 97
[2024-12-14] VITALS (7 sets, daily range): BP systolic 101–120; BP diastolic 50–70; PULSE 75–86; RESP 14–16; TEMP 36.4–36.9; O2SAT 94–99
--- NOTE | 2024-12-14 07:14 | PC.NURSE ---
Pt appears to be sleeping, equal, non labored respirations. 1:1 at bedside for safety. Plan of care ongoing.
--- NOTE | 2024-12-14 07:48 | PC.NURSE ---
Pt awake, calm and cooperative, ambulated to BR with 1 assist, Pt reports he ambulates with walking stick due to vision impairement.
--- NOTE | 2024-12-14 14:09 | MHC.CARE ---
Patient was referred to [facility]. He did an intake. Patient informed t/w they would not accept him/ that they declined him. He also is requesting discharge at this time. He denies SI/ HI. He engages in safety planning, agreeable to reaching out to [facility], to returning to this ED or the closest. He is aware of walk ins at various facilities in the area.
== END 2024-12-14 16:15 | disposition home or self-care (01) ==
PROVIDERS: Emergency Provider Emergency Medicine
DX: F10.120 Alcohol abuse with intoxication, uncomplicated (principal); Y90.8 Blood alcohol level of 240 mg/100 ml or more; R45.6 Violent behavior; R45.851 Suicidal ideations; F32.A Depression, unspecified; F43.10 Post-traumatic stress disorder, unspecified; F99 Mental disorder, not otherwise specified; Z91.148 Patient's other noncompliance with medication regimen for other reason
CPT/HCPCS: 36415; 80053; 80143; 80179; 80307; 81001; 83735; 85025; 96372; 99285; J2359; S9485

== ENCOUNTER 2025-04-05 20:58 | Emergency (ER) | payer OTHER, SELFPAY ==
[2025-04-05 21:08] VITALS: BP 153/87; BP 174/98; PULSE 105; PULSE 88; RESP 18; TEMP 36.6; O2SAT 100; BMI 30.5
--- NOTE | 2025-04-05 21:52 | ED.GENADULT ---
HPI - General Adult General Chief complaint: ETOH/Substance Use Stated complaint: ETOH complaining of broken ankle Time Seen by Provider: 04/05/25 21:52 History of Present Illness ED Provider: Cristian OKEEFE narrative: The patient is a 50-year-old male. He has a history of alcoholism and says that he also has a history of chronic alcoholic liver disease and esophageal varices has had a tips procedure. Additionally he has a history of homelessness, hypertension, variceal bleeding, hepatic encephalopathy, chronically poor vision from optic neuropathy leaving him legally blind. Additionally he recently had an injury to his left foot and ankle and had open reduction and internal fixation of his left calcaneus on March 20 at [facility]. He was discharged from [facility] on March 27 to go to a rehab facility. He was discharged from the rehab facility a couple of days ago. The reason for this discharge is not clear to me. It seems as though he has a plan to stay in hotels after leaving the nursing facility.. He presented to the emergency room at [facility] yesterday evening just before midnight. 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 He was seen by the orthopedic team at [facility] and he also had ultrasounds of his legs to look for blood clots. These were negative. He was discharged from the emergency department at 16:48 earlier this afternoon. He says that he bought some beer after leaving [facility] and he says that he had a confrontation with the police magistrate which resulted in an ambulance being called and him being brought here. He says that he is trying to get into some kind of long-term program for his alcoholism. He is not suicidal. Related Data Home Medications ?Medication ?Instructions ?Recorded ?Confirmed acamprosate 333 mg tablet,delayed 666 mg PO TID 12/17/23 12/17/23 release amlodipine 5 mg tablet 5 mg PO DAILY 12/17/23 12/17/23 baclofen 10 mg tablet 10 mg PO TID 12/17/23 12/17/23 calcium 500 mg (as 1 tab PO DAILY 12/17/23 12/17/23 carbonate)-vitamin D3 10 mcg (400 unit) tablet collagenase clostridium histo. 250 1 appl topical DAILY 12/17/23 12/17/23 unit/gram topical ointment (Santyl) folic acid 1 mg tablet 1 mg PO DAILY 12/17/23 12/17/23 furosemide 20 mg tablet 10 mg PO DAILY 12/17/23 12/17/23 gabapentin 300 mg capsule 300 mg PO DAILY 12/17/23 12/17/23 magnesium oxide 400 mg (241.3 mg 400 mg PO DAILY 12/17/23 12/17/23 magnesium) tablet melatonin 3 mg tablet 3 mg PO BEDTIME 12/17/23 12/17/23 multivitamin with folic acid 400 1 tab PO DAILY 12/17/23 12/17/23 mcg tablet (Tab-A-Jesse) nicotine (polacrilex) 2 mg gum 2 mg PO PRN Withdrawal Symptoms 12/17/23 pantoprazole 40 mg tablet,delayed 40 mg PO DAILY@0630 12/17/23 12/17/23 release paroxetine HCl 10 mg tablet 10 mg PO DAILY 12/17/23 12/17/23 pyridoxine (vitamin B6) 50 mg 50 mg PO DAILY 12/17/23 12/17/23 tablet rifaximin 550 mg tablet (Xifaxan) 550 mg PO BID 12/17/23 12/17/23 sennosides 8.6 mg tablet (senna) 17.2 mg PO DAILY 12/17/23 12/17/23 spironolactone 25 mg tablet 25 mg PO DAILY 12/17/23 12/17/23 thiamine HCl (vitamin B1) 100 mg 100 mg PO DAILY 12/17/23 12/17/23 tablet duloxetine 30 mg capsule,delayed 60 mg PO DAILY 12/14/24 release hydroxyzine pamoate 50 mg capsule 50 mg PO TID PRN Anxiety/Itching 12/14/24 lactulose 10 gram/15 mL oral 30 ml PO BID 12/14/24 solution mirtazapine 15 mg tablet 15 mg PO BEDTIME 12/14/24 trazodone 50 mg tablet 50 mg PO BEDTIME PRN insomnia 12/14/24 Allergies Allergy/AdvReac Type Severity Reaction Status Date / Time acetaminophen (From TYLENOL) Allergy Intermediate ULCERS Verified 04/08/25 17:23 aspirin (ASA) Allergy Unknown VOMITING Verified 04/08/25 17:23 BLOOD Review of Systems Review of Systems: Yes all other systems are reviewed and are negative PMFSH Past Medical History Medical History Cirrhosis Alcoholism Nasal fracture Legally blind Hypertension Depression Heart murmur Surgical History S/P TIPS (transjugular intrahepatic portosystemic shunt) Social History Social History Alcohol intake: current Alcohol intake frequency: 3 or more drinks per day Alcohol type: hard liquor Smoked in Last 30 Days: Yes Use of substances other than those prescribed or required for medical reasons: No Substance Use Type: Crack/Cocaine and Marijuana Any prior treatment program specific to substance use: No Advance Directives: Yes Advance Directives on File: Yes Advance Directives Date on File: 12/20/23 Do you have a plan to hurt others: No Plan Physical Exam ED Vital Signs: Vital Signs - 24 hr 04/05/25 21:08 04/06/25 00:00 04/06/25 04:00 Temperature 98 F Pulse Rate 88 Respiratory Rate 18 19 16 Blood Pressure 153/87 H Pulse Oximetry 100 97 Oxygen Delivery Method Room Air Room Air 04/06/25 04:34 Temperature 98.2 F Pulse Rate 82 Respiratory Rate 20 Blood Pressure 129/75 Pulse Oximetry 98 Oxygen Delivery Method Room Air BMI result Body Mass Index 30.5 Const Other: The patient is an unkempt, chronically ill-appearing 50-year-old. He seems intoxicated. He has not seem in acute distress or seem obviously acutely ill. HENMT Other: The face is symmetrical. ?Mucous membranes moist. Eyes Other: The patient is mildly asymmetric eyes. Pupils are round equal, extraocular movements are intact, he reports poor vision which is chronic. Neck Other: Insert neck Resp Effort & Inspection: normal respiratory effort Auscultation: clear to auscultation bilaterally Cardio Rate: regular rate Rhythm: regular rhythm Heart sounds: S1 normal heart sound present and S2 normal heart sound present GI Other: Abdomen is soft and nontender Skin Other: Skin is pale and dry. He has [address] on the plantar aspect of the heel. There is no erythema or dehiscence. He has a lot of chronic discoloration to the skin of the feet. Neuro Other: The patient is awake and alert, he seems intoxicated. The patient he reports chronic poor vision. He has some mild misalignment of the eyes which I suspect is chronic. His cranial nerves are otherwise intact. He moves his extremities symmetrically with a intact strength and sensation throughout.. Extrem Other: The patient has sutures on the plantar aspect of the heel of the left foot where he had recent surgery. There was no erythema. There are chronic stasis changes associated with the foot as well as poor hygiene. No sign of acute infection. The left leg is generally slightly more swollen than the right leg. The patient had a negative left leg Doppler ultrasound of the left leg earlier today at [facility]. Course Course Course Narrative: 916--patient was evaluated by CARE team and will be referred to the [facility]. Patient was cleared from their standpoint and will be discharged to go to [facility]. Results discussed with patient including worrisome signs and symptoms and strict return precautions, and when to return to the emergency department. They verbalized understanding and feel safe for discharge at this time. Medications Administered Discontinued Medications Generic Name Dose Route Start Last Admin Trade Name Chao PRN Reason Stop Dose Admin Diazepam 10 mg 04/06/25 01:40 04/06/25 01:48 Diazepam 5 Mg Tablet PO 04/06/25 01:41 10 mg ONCE ONE Administration Medical Decision Making Medical Decision Making MDM Narrative: The patient is a 50-year-old male who was an alcoholic. I believe he is also currently homeless. He had surgery a few weeks ago for a left calcaneal fracture. He spent about a week at a rehab facility. He has resumed drinking since leaving the rehab facility. He was at [facility] last night and during the day today and returns to the emergency room here just a few hours after leaving [facility]. He was drinking beer. He claims that he would like to get into some kind of a rehab program. He does not seem obviously acutely ill. At [facility] just a few hours ago he had a negative left leg DVT ultrasound. There was no sign of infection to the surgical site in the left ankle and I think he was seen by the orthopedic service when he was at [facility] earlier today as well. Since the patient is homeless and since he is intoxicated he will be kept in the emergency room. He was given a dose of diazepam. I have placed a recovery team consult in hopes of possibly findings some reasonable disposition for this patient. The patient denies suicidality so I do not see an indication for a care team consult. The patient has an orthopedic appointment next week for removal of his sutures. This is at [facility]. The patient will be placed in physician observation. Lab Data 04/05/25 21:43 04/05/25 21:43 Labs: Lab Results 04/05/25 Range/Units 21:43 WBC 6.3 (4.8-10.8) X10*3/uL RBC 4.01 L (4.60-5.80) X10*6/uL Hgb 12.4 L (14.0-18.0) g/dl Hct 36.6 L (42.0-52.0) % MCV 91.3 (80.0-98.0) fL MCH 30.9 (27.0-33.0) pg MCHC 33.9 (31.0-36.0) g/dl RDW 14.9 (11.0-16.0) % Plt Count 116 L (160-400) X10*3/uL MPV 9.2 L (9.4-12.4) fL Immature Gran % (Auto) 0.3 (0.0-0.4) % Neut % (Auto) 67.4 (45-73) % Lymph % (Auto) 16.2 L (20-40) % [place] % (Auto) 14.9 H (2-11) % Eos % (Auto) 0.6 (0-4) % Baso % (Auto) 0.6 (0-2) % Lymph # (Auto) 1.0 L (1.2-4.9) X10*3/uL [place] # (Auto) 0.9 (0.1-1.2) X10*3/uL Eos # (Auto) 0.0 (0.0-0.4) X10*3/uL Baso # (Auto) 0.0 (0.0-0.2) X10*3/uL Abs Immat Gran (auto) 0.02 (0.00-0.03) X10*3/uL Absolute Neuts (auto) 4.2 (2.0-8.3) x10*3/uL Absolute Nucleated RBC 0.000 (0.0-0.012) X10*3/uL Nucleated RBC % (auto) 0.0 (0.0-0.2) /100WBC Smear Tech's Comments VERIFIED Sodium 142 (135-145) mmol/L Potassium 4.5 D (3.3-5.1) mmol/L Chloride 112 H (96-108) mmol/L Carbon Dioxide 20 L (22-29) mmol/L Anion Gap 15 (12-20) BUN 10 (9-16) mg/dL Creatinine 0.73 (0.5-1.4) mg/dL Estim Creat Clear Calc 133.8 Estimated GFR > 60 Random Glucose 113 (60-115) mg/dL Calcium 9.2 D (8.4-10.2) mg/dL Total Bilirubin 1.9 H (0.0-1.0) mg/dL Direct Bilirubin 0.6 H (0.0-0.5) mg/dL AST 43 H (5-37) U/L ALT 30 (0-40) U/L Alkaline Phosphatase 140 H (39-117) U/L Total Protein 7.2 (6.5-8.0) g/dL Albumin 3.8 (3.5-5.0) g/dL Lipase 28 (8-78) U/L Urine Color Yellow Urine Appearance Clear Urine pH 6.0 (5.0-9.0) Ur Specific [place] <= 1.005 (1.005-1.025) Urine Protein Negative (Neg-Trace) mg/dL Urine Glucose (UA) Negative (Negative) mg/dL Urine Ketones Negative (Negative) mg/dL Urine Blood Negative (Negative) Urine Nitrite Negative (Negative) Ur Leukocyte Esterase Negative (Negative) Urine RBC 0-2 (0-2) /HPF Urine WBC 0-5 (0-5) /HPF Ur Squamous Epith Cells 0-2 (0-2) /HPF Urine Bacteria None Seen (None Seen) Hyaline Casts 0-2 (0-2) /LPF Urine Opiates Screen Not Detected (Not Detect) Ur Buprenorphine Scrn Not Detected (Not Detect) ng/mL Ur Oxycodone Screen Not Detected (Not Detect) ng/mL Urine Methadone Screen Not Detected (Not Detect) ng/mL Urine Fentanyl Screen Not Detected (Not Detect) Ur Barbiturates Screen POSITIVE H (Not Detect) Ur Phencyclidine Scrn Not Detected (Not Detect) Ur Amphetamines Screen Not Detected (Not Detect) U Benzodiazepines Scrn Not Detected (Not Detect) Urine Cocaine Screen Not Detected (Not Detect) U Marijuana (THC) Screen Not Detected (Not Detect) Ethyl Alcohol 160 mg/dL Discharge Plan Discharge Clinical Impression: Alcohol intoxication, Alcoholism, Homelessness Patient Disposition: Home, Self-Care Instructions: Alcohol Dependence (ED) Additional Instructions: Alcohol use disorder You were seen in the Emergency Department today for treatment of alcohol use disorder.? You may have been given medications to help with your withdrawal symptoms.? Please do not drink alcohol with them. This is very dangerous and can cause respiratory depression or other adverse reactions depending on the medication. If you would like to cut down or stop your alcohol use please consider calling our outpatient Addiction Treatment office:? [facility] (-[id number]) [address] [place] [id number] You have also been given a list of treatment providers in the area that can assist as well.? If you experience seizures, vomiting blood, black stools, falls, severe headache, chest pain, fevers, trouble breathing, hallucinations or any other concerns you need to call 911 or seek immediate care. Please stay hydrated. Prescriptions: No Action amlodipine 5 mg tablet 5 mg PO DAILY baclofen 10 mg tablet 10 mg PO TID gabapentin 300 mg capsule 300 mg PO DAILY folic acid 1 mg tablet 1 mg PO DAILY furosemide 20 mg tablet 10 mg PO DAILY acamprosate 333 mg tablet,delayed release (DR/EC) 666 mg PO TID calcium carbonate-vitamin D3 500 mg-10 mcg (400 unit) tablet 1 tab PO DAILY sennosides [senna] 8.6 mg tablet 17.2 mg PO DAILY paroxetine HCl 10 mg tablet 10 mg PO DAILY nicotine (polacrilex) 2 mg gum 2 mg PO PRN (Reason: Withdrawal Symptoms) thiamine HCl (vitamin B1) 100 mg tablet 100 mg PO DAILY melatonin 3 mg tablet 3 mg PO BEDTIME spironolactone 25 mg tablet 25 mg PO DAILY magnesium oxide 400 mg (241.3 mg magnesium) tablet 400 mg PO DAILY pantoprazole 40 mg tablet,delayed release (DR/EC) 40 mg PO DAILY@0630 pyridoxine (vitamin B6) 50 mg tablet 50 mg PO DAILY Santyl 250 unit/gram ointment 1 appl topical DAILY Xifaxan 550 mg tablet 550 mg PO BID multivitamin with folic acid [Tab-A-Jesse] 400 mcg tablet 1 tab PO DAILY trazodone 50 mg tablet 50 mg PO BEDTIME PRN (Reason: insomnia) hydroxyzine pamoate 50 mg capsule 50 mg PO TID PRN (Reason: Anxiety/Itching) mirtazapine 15 mg tablet 15 mg PO BEDTIME duloxetine 30 mg capsule,delayed release(DR/EC) 60 mg PO DAILY lactulose 10 gram/15 mL solution 30 ml PO BID Referrals: [facility] [place] [facility] [Provider Group] - 3 days Interventions: ED Discharge Assessment Last Done: 04/06/25 10:38 Discharge Date/Time: 04/06/25 10:39 Print Language: Urdu
[2025-04-05 21:58] LABS: NRBC Abs Auto 0.000 X10*3/uL (0.0-0.012); NRBC Pct Auto 0.0 /100WBC (0.0-0.2); PLT CLUMP 1; SCAN SMEAR FLAG 1
[2025-04-05 22:00] LABS: Hematocrit 36.6 % (42.0-52.0); Hemoglobin 12.4 g/dl (14.0-18.0); Imm Gran Abs Auto 0.02 X10*3/uL (0.00-0.03); Imm Gran Pct Auto 0.3 % (0.0-0.4); Lymphocytes Absolute Auto 1.0 X10*3/uL (1.2-4.9); MANUAL DIFF FLAG SCAN; Mean Corpuscular HGB Conc 33.9 g/dl (31.0-36.0); Mean Corpuscular Hemoglobin 30.9 pg (27.0-33.0); Mean Corpuscular Volume 91.3 fL (80.0-98.0); Red Blood Count 4.01 X10*6/uL (4.60-5.80)
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
--- OUTSIDE RECORDS SUMMARY | 2025-04-05 22:00 | XMS_ITS | Clinical Summary ---
Author Organization [facility] Address [address] [place] [address] Care Team Providers Care Hospital Technician Name Role Phone Unavailable Primary Care Provider [...] of 2) 2023 COVID-19 Vaccine (1 - 2024-2 6 season) 2025 Influenza (#1) 2025 HPV Vaccine (No Doses Required) Completed Hib Aged Out No longer eligi ble based on patient's age to complete this topic Meningococcal ACWY Aged Out No longer eligible based on patient's age to [place] [id number] [facility] FFS ONE CARE Care Teams Hospital Technician Relationship Specialty Start Date End Date Jany Baig Primary Care Provider 07/05/24
--- OUTSIDE RECORDS SUMMARY | 2025-04-05 22:00 | XMS_ITS | Data Portability ---
Author Organization [place] - [facility] Address [address] [place] [address] Care Team Providers Care Brick Paver Name Role Phone [facility] Primary Care Provider Assessment Encounter Date Assessment Date Assessment LastModified by Organization Details LastModified Time 02/10/2021 02/10/2021 Time On Scene with Patient: 00:53:23 - Referred - Point of Care: Emergency Department [id number] Not available 02/10/2021 19:22:15 09/27/2021 09/27/2021 Overview/History : 46 YO M new to provider and known to He is being seen today for worsening cough He reports new onset pleuritic cp this afternoon, he is having productive cough (he is legally blind so cannot tell if he has hemoptysis or not). He does have some worsening SOB and he does have Rt side LE calf pain. He does feel slightly feverish. he denies any radiating cp into his arm, jaw, or abdomen, denies abd pain N/V/D, no new numbness/tingling. No recent trauma. Slight headache. No other reported sx's. Exam: Vitals: Slight temp at 99.6 F, BP w/ slightly widened pulse pressure at 160/76 on recheck, tachycardiac between 120-140 despite having patient sit and relax and not talk for about 10 minutes. O2 sat stable at 98%. RR at 24, elev. Constitutional: 46 yo Well developed, well nourished, pleasant patient in no apparent distress. He is not currently in any acute distress and he is not toxic appearing. Eyes: No swelling, no discharge, sclera / conjunctiva clear CV: tachycardia but w/ reg rhythm, no rubs/ murmurs/ gallops heard, 2+ radial pulses bilaterally, Rt lower extremity edema > LLE also w/ calf tenderness and positive Lubna's sign, 2+ DP/ PT pulses bilaterally Pulm: breath sounds clear and equal bilaterally, no wheeze/ rhonchi or rales on auscultation. Speaks in full sentences, slightly tachypneic at this time. slight cogh that is wet sounding throughout visit. Does not cough up any sputum while we are present. GI: Soft, non-tender to palpation. No masses, normal bowel sounds. MS: Self ambulatory patient w/ slight lip favoring L side, moves all limbs without deficit, no evidence of trauma Neuro: No focal deficits, A&O x4 Skin: No rash. No cyanosis or pallor. Psych: Calm, cooperative, non-manic. Pleasant. DDx considered, but not limited to: DVT/PE - VERY POSSIBLE CANNOT PERC OUT!!! HAS COVID (INCR RISK OF CLOTTING), + RLE EDEMA, + HOMANS, + PLEURITIC CP, + TACHYCARDIA NEEDS CT TO EVAL, also possible hemoptysis and worse sob and cough ACS - possible cuase of cp but is reproducible, no radiation, more likely above. considered ekg but feel needs stat transfer to hospital for above so EMS called immediately and helped into ambulance rather than taking time to perform ECG on scene and dealying these COVID - + rapid on scene RELAPSING PNEUMONIA - possible cause of sob and cough but cannot r/o PE at this time, addn if he is having relapsing pna at this time he likely would need repeat IV abx to tx given recnt use and hospitalization for this issue in August of this year COSTAL CHONDIRITIS - possible cause of pleuritic cp but d/t all other s/s on exam and hx cannot fully r/o PE which needs to be done before levying this diagnosis in this patient Work up/Results: N/A ON SCENE, CONSIDERED EKG BUT CP IS MORE PLEURITIC AND NO RADIATING PAIN. CP WAS ALSO REPRODUCIBLE W/ PALPATION TO THE CHEST WALL. DID NOT WANT TO DELAY CARE SO EMS CALLED STAT DT CONCERNS FOR ACUTE BLOOD CLOT RAPID COVID IS + ON SCENE Plan/Discussion: PT W/ TACHYCARDIA, PELURITIC CP (ACUTE ONSET), SOME WORSENING COUGH AND SOB, HE HAS BLOOD [place] INHIS TRASH W/ SPUTUM AND RED TINGED W/ BLOOD, POSSIBLE HEMOPTYSIS VS BLOODY NOSE BUT NOSE IS NOT BLEEDING NOW. HR BASELINE SEEMS TO BE 60-70 NOW AT 120-140. HTN AND TACHYPNEIC. + S/S OF DVT ON EXAM. W/ COVID AND INCREASE RISK OF CLOT. CANOT PERC OUT THEREFORE EMS CALLED [facility] AND PT IS BEING TRANSFERRED TO ACUTE CARE FACILITY FOR FURTHER DIAGNOSTICS AND CT SCAN OF THE CHEST WELL TX OF ANY AND ALL PATHOLOGIES FOUND DURING WORKUP. PT HANDED OFF TO [facility] AND EXECT CALLED INTO [facility] ED FOR ACUTE TX AND EVALUATION ON EMERGENT BASIS. PT IS VERY THANKFUL OF OUR VISIT AND WILLING TO GO. HE IS IN GOOD SPIRITS DESPITE THIS. In order to obtain further information and compare any laboratory results/values, I have accessed patient records on the [employer]. This information was pertinent in my medical decision making today. [email or web address] Not available 09/27/2021 21:24:19 Plan of Treatment Reminders Order Date Submit Date Provider Last Modified By Organization Details Last Modified Time Details Appointments None recorded. Lab rapid SARS CoV 2 Ag, QL IA, respiratory specimen 2021 022 judit [facility], [address] [place] [address], [id number], 21:12:50 Referral None recorded. Procedures None recorded. Surgeries None recorded. Imaging None recorded. Medication Orders None recorded. Patient TargetsNo targets recorded. Patient Instructions Encounter Date Encounter Id Patient Instructions Last Modified By Organization Details Last Modified Time 02/10/2021 [id number] Thank you for yo ur visit with [facility] today. You may have had laboratory tests or cultures performed today. At this time, we do not feel that you have an infection that requires hospitalization. However, infections can get worse, even with antibiotics. If you have worsening redness, pain or fever, go immediately to the Emergency Department. Please follow up with your primary care provider or with the specialist referral you were given, within 12-24 hours to be re-examined. If you develop any new or worsening symptoms and need after hours care, please go to nearest ER and/or call 911. If you have additional concerns or develop a change in your condition between 8am-10pm, please call [facility] at [phone] to help navigate your care. Thank you for your visit with [facility] today. You were seen today for treatment of a wound. Please seek immediate medical attention if you develop increased pain, redness, or swelling of your wound. Also, you should be evaluated if the wound becomes warm to the touch, or if there is a cloudy, yellow-brown discharge from the wound. There is always the possibility of a hidden tendon injury or foreign object in the wound. If you have problems moving your arm or leg, or if you see red streaks up the arm or leg, seek immediate medical attention. If you develop any new or worsening symptoms and need after hours care, please go to nearest ER and/or call 911. If you have additional concerns or develop a change in your condition between 8am-10pm, please [facility] at [phone] to help navigate your care. Not available 02/10/2021 18:43:47 Reason for Referral None Reported. Results Created Date Observation Date Name Description Value Unit Range Abnormal Flag Note LastModifiedBy Organization Detail LastModifiedTime 09/28/19 22 09/27/2021 rapid SARS CoV 2 Ag, QL IA, respi rator y speci men Covid-19 (ref: neg) positi ve Not Available [facility] [address] [place], [address], 09/27/2021 21:12:11 09/28/19 22 09/27/2021 rapid SARS CoV 2 Ag, QL IA, respi rator y speci men Control Visual ized/V alid Not Available [facility] [address] [place], [address], 09/27/2021 21:12:11 09/28/19 22 09/27/2021 rapid SARS CoV 2 Ag, QL IA, respi rator y speci men Location [facility], [address] [place] [address], [id number] Not Available [facility] [address] [place], [address], 09/27/2021 21:12:11 Result Notes None recorded. Procedures Surgical History Date Name Laterality Status Provider Name and Address Organization Details Recorded Time insertion of stent into vein completed Loren Haines NP [address], [place], [address], [place] [facility] 02/10/2021 18:41:47 Imaging Results None recorded. Procedure Notes None recorded. Medical Equipment None Reported. Allergies Allergen ID Allergen Name Allergen Category Reaction Reaction Severity Criticality Documentation Date Start Date Code Code System Note Provider Name and Address Organization Details Recorded Time 722617 aspirin medicatio n Not available Not available Not available 02/10/2021 1191 RxNorm Loren Haines NP [address], [place], [address], [place] [facility] 18:28:39 383060 ibuprofen medicatio n Not available Not available Not available 02/10/2021 5640 RxNorm Loren Haines NP [address], [place], [address], [place] [facility] 18:28:44 253533 Non-stero idal anti-infl ammatory agent (substanc e) medicatio n Not available Not available Not available 02/10/2021 03656 5008 SNOMED Loren Haines NP [address], [place], [address], [place] [facility] 18:29:04 534366 Tylenol medicatio n Not available Not available Not available 02/10/202146372 3 RxNorm Loren Haines NP [address], [place], [address], [place] [facility] 18:29:09 Medications Name Sig Start Date Stop Date Status Note LastModified by Organization Details LastModified Time amoxicillin 500 mg capsule TAKE 1 CAPSULE BY MOUTH EVERY 6 HOURS UNTIL FINISHED 02/10 completed Not Available Not Available Not Available oxcarbazepi ne 150 mg tablet 09/27 completed Not Available Not Available Not Available nystatin 100,000 unit/mL oral suspension TAKE 6 ML BY MOUTH 4 TIMES A DAY X 5 DAYS 09/27 completed Not Available Not Available Not Available clonidine HCl 0.1 mg tablet 09/27 completed Not Available Not Available Not Available gabapentin 600 mg tablet active Not Available Not Available Not Available nicotine 14 mg/24 hr daily transdermal patch 1 PATCH TOPICALLY DAILY,X28 DAYS 09/27 completed Not Available Not Available Not Available trazodone 50 mg tablet active Not Available Not Available Not Available levetiracet am 500 mg tablet TAKE 1 TABLET BY MOUTH TWO TIMES A DAY 09/27 completed Not Available Not Available Not Available thiamine HCl (vitamin B1) 100 mg tablet active Not Available Not Available Not Available oxcarbazepi ne 300 mg tablet 09/27 completed Not Available Not Available Not Available melatonin 3 mg tablet 09/27 completed Not Available Not Available Not Available sulfamethox azole 800 mg-trimetho prim 160 mg tablet TAKE 1 TABLET BY MOUTH TWICE A DAY FOR 10 DAYS 09/27 completed Not Available Not Available Not Available tramadol 50 mg tablet TAKE 1 TABLET BY MOUTH TWICE A DAY NEEDED FOR PAIN 09/27 completed Not Available Not Available Not Available magnesium oxide 400 mg (241.3 mg magnesium) tablet active Not Available Not Available Not Available baclofen 10 mg tablet active Not Available Not Available No t Available pantoprazol e 40 mg tablet,norm yed release active Not Available Not Available Not Available nicotine 21 mg/24 hr daily transdermal patch 1 PATCH TOPICALLY DAILY,X28 DAYS 09/27 completed Not Available Not Available Not Available oxcarbazepi ne 600 mg tablet 09/27 completed Not Available Not Available Not Available hydroxyzine HCl 25 mg tablet 09/27 completed Not Available Not Available Not Available mupirocin 2 % topical ointment 09/27 completed Not Available Not Available Not Available fluticasone propionate 50 mcg/actuati on nasal spray,suspe nsion active Not Available Not Available Not Available nicotine 7 mg/24 hr daily transdermal patch 1 PATCH TOPICALLY DAILY,X28 DAYS 09/27 completed Not Available Not Available Not Available coenzyme Q10 100 mg capsule active Not Available Not Available Not Available mirtazapine 7.5 mg tablet 09/27 completed Not Available Not Available Not Available acamprosate 333 mg tablet,norm yed release TK 2 TS PO TID 09/27 completed Not Available Not Available Not Available lactulose 10 gram/15 mL oral solution active Not Available Not Available Not Available varenicline tartrate 1 mg tablet 1 TABLET BY MOUTH 2 TIMES A DAY,INSTR :TO START AFTER 0.5 MG TABS 09/27 completed Not Available Not Available Not Available varenicline tartrate 0.5 mg tablet PLEASE SEE ATTACHED FOR DETAILED DIRECTION S 09/27 completed Not Available Not Available Not Available Xifaxan 550 mg tablet active Not Available Not Available No t Available tranexamic acid 650 mg tablet TAKE 1 TABLET BY MOUTH DAILY. 09/27 completed Not Available Not Available Not Available naloxone 4 mg/actuatio n nasal spray active Not Available Not Available Not Available Tab-A-Jesse 400 mcg tablet active Not Available Not Available Not Available Vitals Date Recorded Body temperature Respiratory rate Heart rate Oxygen saturation Oxygen saturation in Arterial blood by Pulse oximetry Systolic And Diastolic Provider Name and Address Organization Details Last Updated DateTime 2 99.6 [degF] 22 /min 120 /min 98 % 98 % 160/76 mm[Hg] Not Available [facility] 20:25:26 Date Recorded Oxygen saturation Oxygen saturation in Arterial blood by Pulse oximetry Heart rate Respiratory rate Body temperature Systolic And Diastolic Provider Name and Address Organization Details Last Updated DateTime 1 97 % 97 % 103 /min 20 /min 97.7 [degF] 150/80 mm[Hg] Not Available [facility] 18:44:37 Social History Question Answer Notes LastModified by Organizat ion Details LastModified Time Tobacco Smoking Status Current Every Day Smoker Loren Haines, STEVE [address] [place] [address], [address], [place] [facility] 02/10/2021 18:40:03 Do You Have An Advance Directive? No Information not available 02/10/2021 What Is Your Code Status? Full Code Information not available 02/10/2021 Within The Past 12 Months, Has It Happened That The Food You Bought Just Didn't Last And You Didn't Have Money To Get More. No Information not available 02/10/2021 Within The Past 12 Months, Have You Worried That Your Food Would Run Out Before You Got Money To Buy More. No Information not available 02/10/2021 Fall Risk: Do You Feel Unsteady When Standing Or Walking? No Information not available 02/10/2021 We Know That How And When People Interact With Friends And Family Can Be Very Different From Person To Person. How Often Do You Have The Opportunity To See Or Talk To People That You Care About And Feel Close To? (Ex: Talking To Friends On The Phone Or Visiting Friends Or Family Or Going To Islam Or Club Meetings) 1 Or 2 Times Per Week Information not available 02/10/2021 Excessive Alcohol Or Drug Use No Information not available 02/10/2021 Does This Patient Have A PCP? Yes Information not available 02/10/2021 We Know From Many Of Our Patients That Covering All Of Their Costs Can Be Difficult At Times. This Can Cause Stress And Impact Health. In The Past Year, Have You Been Unable To Get Any Of The Following When It Was Really Needed? No Information not available 02/10/2021 What Is Your Housing Situation Today? I Have Housing Information not available 02/10/2021 Would You Like Help Connecting To Resources? None Information not available 02/10/2021 Sex: Unknown Functional Status Question Answer Note LastModified by Organizat ion Details LastModified Time Do you use any illicit or recreational drugs? No in the past Information not available 02/10/2021 Do you or have you ever used any other forms of tobacco or nicotine? No [email or web address] Information not available 09/27/2021 What is your level of alcohol consumption? None alcohol abuse in past Information not available 02/10/2021 Mental Status None recorded. Family History Relationship Description Onset Age of this Age Resolved Age Notes LastModified by Organization Details LastModified Time Brother Myocardial infarction [email or web address] Not available 09/27 20:43:07 Medical History Condition Response Diabetes N Coronary Artery Disease N High Cholesterol N Pulmonary Embolism N Cancer N Hypertension Y Stroke N Asthma N COPD N Depression Y Kidney Disease N Past Encounters Encounter ID Performer Location Encounter Start Date Encounter Closed Date Diagnosis/Indication Diagnosis SNOMED-CT Code Diagnosis ICD10 Code Diagnosis IMO Codes Diagnosis Note [id number] Loren Haines NP [facility] - [address] [place] [address] 02/10/2021 18:35:35 02/11/2021 13:59:39 Wound cellulitis 140408364 L03.90 Pain in right knee 93892 28421 25740 M25.561 Overview/H istory: Patient is a 45 year old alert male who is a poor historian. He presents with chief complaint of non-resolv ing right knee cellulitis /worsening of symptoms despite taking 5 out of 10 days of Bactrim abx BID. Patient medical history significan t for alcoholism , alcoholic encephalop athy, cirrhosis, depression , PTSD, anxiety, subdural bleeds, falls, GI bleeds. Patient denies any ETOH x 2 weeks. He lives alone, however does seem to have good support as his parents did call this visit to get update. Patient was evaluated and started treatment for his cellulitis at [facility] previously . Review of PIVIX does show that patient missed a neuro appt with Dr. Tatum to evaluate and assess ongoing subdural head bleeds 12/28/2020. Exam: Afebrile 97.7. HR tachcyardi c regular 103, S1, S2. Trachea midline, no JVD distention . Moist mucous membranes. LSCTA bilaterall y, no work of breathing. Abdomen soft, rounded + BS x 4 quadrants. No CVA tenderness . Edema, erythema, + calor, pain to right LE; effluence noted to right knee. DDx considered , but not limited to:Septic joint considered , erythema, effluence, tenderness , +calorDVT considered + Homans right LEAbscess considered , cannot rule outCelluli tis considered , cannot rule out Work up/Results :Exam Plan/Discu ssion: Patient on abx for 5 days with no improvemen t and in fact, worsening of cellulitis symptoms reported. Taking Tylenol which may be masking fever. Exam concerning for + Lubna's, right LE. Patient agreed to ED escalation . 911 called. EMS transport to [facility] ER. Phoned ahead expect. Proper Personal Protective Equipment (PPE), including gloves, eye protection and masks were donned and doffed appropriat buffy and all equipment cleaned using approved technique with germicidal disposable wipes prior to and after care of this patient [facility]. In order to obtain further informatio n and compare any laboratory results/va lues, I have accessed old patient records. This informatio n was pertinent in my medical decision making today. [id number] HELEN Orr [facility] [address] [facility] [address] 09/27/2021 19:59:16 09/28/2021 22:14:29 COVID-19 [id number] U07.1 Tachycardia 1288324 R00. 0 Chest pain [id number] R07. 9 Health Concerns Section Related Observation LastModified by Organization Detai ls LastModified Time None Recorded Concern Status LastModified by Organization Details LastModified Time None Recorded Advance Directives Directive N: Payers Insurance Date Sequence Insurance Name Policy Number Policy Greenfield Covered Member ID Greenfield Member ID Guarantor Name 02/10/2021 1 [email or web address] - DOS PRIOR TO 2022 - DUAL ELIGIBLE (MEDICARE REPLACEMENT/AD VANTAGE - HMO) Bill Bassett Jr. [id number] Bill Bassett Jr. 02/10/2021 1 [email or web address] - DOS PRIOR TO 2022 - DUAL ELIGIBLE (MEDICARE REPLACEMENT/AD VANTAGE - HMO) Bill Bassett Jr. [id number] Bill Bassett Jr. 02/10/2021 1 *SELF PAY* Bill Bassett Jr. [id number] Bill Bassett Jr. 09/27/2021 1 [employer] [facility] - DOS PRIOR TO 2022 - DUAL ELIGIBLE (MEDICARE REPLACEMENT/AD VANTAGE - HMO) Bill Bassett Jr. [id number] Bill Bassett Jr. 09/27/2021 1 [employer] [place] - DOS PRIOR TO 2022 - DUAL ELIGIBLE (MEDICARE REPLACEMENT/AD VANTAGE - HMO) Bill Bassett Jr. [id number] Bill Bassett Jr. 09/27/2021 1 [email or web address] - DOS PRIOR TO 2022 - DUAL ELIGIBLE (MEDICARE REPLACEMENT/AD VANTAGE - HMO) Bill Bassett Jr. [id number] Bill Bassett Jr. 09/27/2021 2 [place] [facility] Bill Bassett Jr. [id number] Bill Danyelle Holt Notes Date Note Type Note Provider Name and Address Organization Details Recorded Time 02/10/2021 text/html General HPI Template - DHReported by Patient Patient is an alert 45 year old male who is new to and new to this provider. Patient chief complaint is concerns of previously diagnosed right knee cellulits. Patient was seen at [facility] where the cellulitis was previously diagnosed. Patient reports benign Xray and good blood work. I was started on Bactrim BID this past Wednesday and is on 5/10 day sof dosing. He reports taking doses as ordered. Patient medical history significant for depression, anxiety, HTN, PTSD, active subdural bleeds, history of alcoholism, cirrhosis, encephalopathy, anemia, GI bleeds, falls and he is legally blind. Loren Haines NP [address], [place], [address], [place] [facility] 02/10/2021 19:58:08 09/27/2021 text/html 46 YO M new to provider and known to He is being seen today for worsening coughHe reports new onset pleuritic cp this afternoon, he is having productive cough (he is legally blind so cannot tell if he has hemoptysis or not). He does have some worsening SOB and he does have Rt side LE calf pain.He does feel slightly feverish. he denies any radiating cp into his arm, jaw, or abdomen, denies abd pain N/V/D, no new numbness/tingling . No recent trauma. Slight headache. No other reported sx's. HELEN Cruz [address], [place], [address], [place] [facility] 09/27/2021 21:24:29
--- OUTSIDE RECORDS SUMMARY | 2025-04-05 22:00 | XMS_ITS | Clinical Summary ---
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 Phone Jany Baig Primary Care Provider Allergies Active Allergy Reactions Criticality Noted Date Comments Aspirin Unknown,Other,Swelling 01/10/2014 Other Reaction(s): Hx GI Bleed Other reaction(s): Hx GI Bleed pt took too much in the past and had GI side effects pt took too much in the past and had GI side effects Nsaids (Non-Steroidal Anti-Inflammatory Drug) Unknown 11/23/2024 Medications amLODIPine (NORVASC) 5 mg tablet Take [...] Active Active Problems No known active problems Medical History Medical History Date Comments Cirrhosis (CMS/HCC V24, CMS/HCC V28) ETOH abuse HTN (hypertension) Social History [...] Sign Reading Time Taken Comments Blood Pressure 145/93 11/23/2024 4:23 PM EDT Pulse 106 11/23/2024 4:23 PM EDT Temperature 36.8 C (98.2 F) 11/23/2024 4:23 PM EDT Respiratory Rate 18 11/23/2024 4:23 PM EDT Oxygen Saturation 99% 11/23/2024 4:23 PM EDT Inhaled Oxygen Concentration - - Weight 81.6 kg (180 lb) 11/23/2024 4:23 PM EDT Height 175.3 cm (5' 9 ) 11/23/2024 4:23 PM EDT Body Mass Index 26.58 11/23/2024 4:23 PM EDT Plan of Treatment Health Maintenance Due Date Last Done Comments Colorectal Cancer Screening: Colonoscopy 1973 Hepatitis A Vaccines (1 of 2 - Risk 2-dose series) 02/22/1992 Pneumococcal Vaccine: 50+ Years (2 of 2 - PCV) 03/16/2016 03/16/2015, 08/02/2012 Cholesterol Screening (Lipid Panel) 05/13/2022 HIV Screening 05/13/2022 Hepatitis C Screening 05/13/2022 Social Influencers of Health Screening 05/13/2022 RSV Immunization Adult Patients (1 - Risk 50-74 years 1-dose series) 2023 Zoster Vaccines (1 of 2) 2023 Depression Screening 06/14/2024 COVID-19 Vaccine (3 - 2024- season) 2025 04/08/2021, 03/10/2021 Influenza Vaccine (#1) 2025 , 04/09/2022, 03/10/2021, Additional history exists Hypertension/CHF/CAD Annual BMP Blood Test 09/01/2025 09/01/2024, 06/28/2024, 06/22/2024 DTaP,Tdap,and Td Vaccines (3 - Td or Tdap) 06/22/2028 06/22/2018, 11/25/2015 Hepatitis B Vaccines Completed 03/01/2020, 10/09/2019, 10/09/2019, Additional history exists HIB Vaccines Aged Out [...] Procedure Name Priority Date/Time Associated Diagnosis Comments COMPREHENSIVE METABOLIC PANEL STAT 09/01/2024 4:23 PM EDT from Last 3 Months or Most Recently Relevant to Health Maintenance Results * (ABNORMAL) Comprehensive metabolic panel (09/01/2024 4:23 PM EDT) Sodium 141 133 - 145 mmol/L LAB CHEMISTRY METHOD 09/01/2024 5:36 PM [facility] Potassium 4.8 3.5 - 5.5 mmol/L LAB CHEMISTRY METHOD 09/01/2024 5:36 PM [facility] Chloride 112(H) 96 - 110 mmol/L LAB CHEMISTRY METHOD 09/01/2024 5:36 PM [facility] CO2 23 21 - 32 mmol/L LAB CHEMISTRY METHOD 09/01/2024 5:36 PM [facility] Anion Gap 6 3 - 11 LAB CHEMISTRY METHOD 09/01/2024 5:36 PM [facility] Glucose 111(H) 70 - 100 mg/dL LAB CHEMISTRY METHOD 09/01/2024 5:36 PM [facility] BUN 8 5 - 25 mg/dL LAB CHEMISTRY METHOD 09/01/2024 5:36 PM [facility] Creatinine 0.68(L) 0.70 - 1.30 mg/dL LAB CHEMISTRY METHOD 09/01/2024 5:36 PM [facility] eGFR 113 >=60 mL/min/1. 73m2 LAB CHEMISTRY METHOD 09/01/2024 5:36 PM [facility] Comment:Calculation based on the Chronic Kidney Disease Epidemiology Collaboration (CKD-EPI) equation refit without adjustment for race. BUN/Creatinine Ratio 11.8 LAB CHEMISTRY METHOD 09/01/2024 5:36 PM [facility] Calcium 8.8 8.5 - 10.5 mg/dL LAB CHEMISTRY METHOD 09/01/2024 5:36 PM [facility] AST (SGOT) 59(H) 10 - 42 unit/L LAB CHEMISTRY METHOD 09/01/2024 5:36 PM [facility] ALT (SGPT) 48 10 - 60 unit/L LAB CHEMISTRY METHOD 09/01/2024 5:36 PM EDT [facility] Alkaline Phosphatase 212(H) 42 - 121 unit/L LAB CHEMISTRY METHOD 09/01/2024 5:36 PM EDT [facility] Total Protein 6.4 6.0 - 8.0 g/dL LAB CHEMISTRY METHOD 09/01/2024 5:36 PM EDT [facility] Albumin 2.7(L) 3.2 - 5.0 g/dL LAB CHEMISTRY METHOD 09/01/2024 5:36 PM EDT [facility] Total Bilirubin 1.2 0.0 - 1.4 mg/dL LAB CHEMISTRY METHOD 09/01/2024 5:36 PM EDT [facility] Blood Venous blood specimen / Unknown Venipuncture / Unknown 09/01/2024 4:23 PM EDT 09/01/2024 4:48 PM EDT [facility] LAB BLOOD ORDERABLES Final Resu lt [facility] [address] [place] [address], from Last 3 Months or Most Recently Relevant to Health Maintenance Insurance [facility] MEDICAID [place] [id number] Advance Directives * Full Code - Confirmed (Latest Code Status on File) Date Activated Date Inactivated Comments 06/28/2024 9:16 AM 06/30/2024 7:[address] [facility] was ascertained in the following way: Code status discussion: discussion with patient To update the patient's code status, place a code status order. Do not modify or discontinue any currently active code status orders. 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
[2025-04-05 22:02] LABS: Appearance Urine Clear; Glucose Urine UA Negative (Negative); PH 6.0 (5.0-9.0); Specific Gravity - Urine <= 1.005 (1.005-1.025)
[2025-04-05 22:10] LABS: Cannabinoid Screen Urine Not Detected (Not Detect)
[2025-04-05 22:15] LABS: Alanine Aminotransferase 30 U/L (0-40); Albumin Level 3.8 g/dL (3.5-5.0); Alkaline Phosphatase 140 U/L (39-117); Anion Gap 15 (12-20); Aspartate Amino Transferase 43 U/L (5-37); Blood Urea Nitrogen 10 mg/dL (9-16); Calcium 9.2 mg/dL (8.4-10.2); Carbon Dioxide 20 mmol/L (22-29); Chloride 112 mmol/L (96-108); Creatinine Clr Calc Pharmacy 133.8; Estimated Glomerular Filt Rate > 60; Lipase 28 U/L (8-78); Potassium 4.5 mmol/L (3.3-5.1); Sodium 142 mmol/L (135-145); Total Protein 7.2 g/dL (6.5-8.0)
[2025-04-05 22:48] LABS: Platelet Count 116 X10*3/uL (160-400); White Blood Count 6.3 X10*3/uL (4.8-10.8)
[2025-04-06] VITALS: RESP 19; O2SAT 97
[2025-04-06 04:00] VITALS: RESP 16
[2025-04-06 04:34] VITALS: BP 129/75; PULSE 82; RESP 20; TEMP 36.8; O2SAT 98
[2025-04-06 09:41] VITALS: BP 110/52; PULSE 94; RESP 18; TEMP 36.5; O2SAT 100
[2025-04-06 10:38] VITALS: BP 110/52; PULSE 94; RESP 18; TEMP 36.5; O2SAT 100
== END 2025-04-06 10:39 | disposition home or self-care (01) ==
PROVIDERS: Emergency Provider Emergency Medicine
DX: F10.129 Alcohol abuse with intoxication, unspecified (principal); Y90.6 Blood alcohol level of 120-199 mg/100 ml; Z59.00 Homelessness unspecified; Z79.899 Other long term (current) drug therapy
CPT/HCPCS: 36415; 80053; 80307; 81001; 82248; 83690; 85025; 99284; S9485

== ENCOUNTER 2025-04-08 16:43 | Emergency (ER) | payer OTHER, SELFPAY ==
[2025-04-08 16:57] VITALS: BP 134/79; PULSE 93; O2SAT 96
[2025-04-08 17:12] VITALS: BP 129/72; PULSE 90; RESP 16; TEMP 36.6; O2SAT 97; BMI 31.8
--- NOTE | 2025-04-08 17:23 | ED.ALCOHOL ---
HPI - Alcohol General Chief Complaint: ETOH/Substance Use Stated Complaint: ETOH, unhoused, needs L foot amputated pain 03/23 Time Seen by Provider: 04/08/25 17:00 History of Present Illness ED Provider: [email or web address] HPI narrative: 50 M alcohol use disorder, hypertension, esophageal varices status post TIPS, ANA LUISA, anxiety, depression, recent calcaneal fracture with ORIF on 03/20, most of the history obtained from review of [facility] charting. Patient of note had a fracture of the left malleolus and calcaneus that was repaired operatively the beginning of March on the 27 of March he was sent to acute rehab. It is unclear when he left there. He tells me he is homeless. He was brought in for trespassing and visibly intoxicated he denies any injuries today or any acute complaints. He was seen in the emergency department yesterday April 05 documentation from there says that he had some basic lab work done no leukocytosis or fever had expected postoperative changes to the left foot and was discharged. He is very intoxicated today Related Data Home Medications ?Medication ?Instructions ?Recorded ?Confirmed acamprosate 333 mg tablet,delayed 666 mg PO TID 12/17/23 12/17/23 release amlodipine 5 mg tablet 5 mg PO DAILY 12/17/23 12/17/23 baclofen 10 mg tablet 10 mg PO TID 12/17/23 12/17/23 calcium 500 mg (as 1 tab PO DAILY 12/17/23 12/17/23 carbonate)-vitamin D3 10 mcg (400 unit) tablet collagenase clostridium histo. 250 1 appl topical DAILY 12/17/23 12/17/23 unit/gram topical ointment (Santyl) folic acid 1 mg tablet 1 mg PO DAILY 12/17/23 12/17/23 furosemide 20 mg tablet 10 mg PO DAILY 12/17/23 12/17/23 gabapentin 300 mg capsule 300 mg PO DAILY 12/17/23 12/17/23 magnesium oxide 400 mg (241.3 mg 400 mg PO DAILY 12/17/23 12/17/23 magnesium) tablet melatonin 3 mg tablet 3 mg PO BEDTIME 12/17/23 12/17/23 multivitamin with folic acid 400 1 tab PO DAILY 12/17/23 12/17/23 mcg tablet (Tab-A-Jesse) nicotine (polacrilex) 2 mg gum 2 mg PO PRN Withdrawal Symptoms 12/17/23 pantoprazole 40 mg tablet,delayed 40 mg PO DAILY@0630 12/17/23 12/17/23 release paroxetine HCl 10 mg tablet 10 mg PO DAILY 12/17/23 12/17/23 pyridoxine (vitamin B6) 50 mg 50 mg PO DAILY 12/17/23 12/17/23 tablet rifaximin 550 mg tablet (Xifaxan) 550 mg PO BID 12/17/23 12/17/23 sennosides 8.6 mg tablet (senna) 17.2 mg PO DAILY 12/17/23 12/17/23 spironolactone 25 mg tablet 25 mg PO DAILY 12/17/23 12/17/23 thiamine HCl (vitamin B1) 100 mg 100 mg PO DAILY 12/17/23 12/17/23 tablet duloxetine 30 mg capsule,delayed 60 mg PO DAILY 12/14/24 release hydroxyzine pamoate 50 mg capsule 50 mg PO TID PRN Anxiety/Itching 12/14/24 lactulose 10 gram/15 mL oral 30 ml PO BID 12/14/24 solution mirtazapine 15 mg tablet 15 mg PO BEDTIME 12/14/24 trazodone 50 mg tablet 50 mg PO BEDTIME PRN insomnia 12/14/24 Allergies Allergy/AdvReac Type Severity Reaction Status Date / Time acetaminophen (From TYLENOL) Allergy Intermediate ULCERS Verified 04/09/25 12:57 aspirin (ASA) Allergy Unknown VOMITING Verified 04/09/25 12:57 BLOOD PMFSH Past Medical History Medical History Cirrhosis Alcoholism Nasal fracture Legally blind Hypertension Depression Heart murmur Surgical History S/P TIPS (transjugular intrahepatic portosystemic shunt) Social History Social History Alcohol intake: current Alcohol intake frequency: 3 or more drinks per day Alcohol type: hard liquor Smoked in Last 30 Days: Yes Use of substances other than those prescribed or required for medical reasons: Yes Substance Use Type: Crack/Cocaine Advance Directives: Yes Advance Directives on File: Yes Advance Directives Date on File: 12/20/23 Physical Exam ED Exam Exam: GENERAL: Well appearing. No obvious external visible trauma. Slurring speech visibly intoxicated HEAD/NECK: No visual trauma. EYES: Normal to inspection. No conjunctival erythema. No discharge. ENMT: Hearing grossly normal. External nose normal. RESPIRATORY: Respiratory effort normal. CARDIOVASCULAR: Additional details (Grossly well perfused). SKIN: No jaundice. NEUROLOGICAL: Alert. Moving all extremities x4. Additional details (No gross motor deficits. Normal tone. ). PSYCHIATRIC: Alert. Appearance appropriate for situation. MSK: Left foot exposed with scaling skin mild edema throughout no erythema warmth streaking up the leg. No significant tenderness elicited. Vital Signs: Vital Signs - 24 hr 04/08/25 17:12 04/09/25 06:43 Temperature 98 F 97.8 F Pulse Rate 90 88 Respiratory Rate 16 Blood Pressure 129/72 108/64 Pulse Oximetry 97 95 Oxygen Delivery Method Room Air Room Air BMI result Body Mass Index 31.8 Course Reevaluation(s) Reevaluation #1: 8:54 PM 04/08/2025 (Dr. Eben Rios): Sign out to over night ED physician to re-evaluate for sobriety and safe disposition likely home barring any new developments or new complaints when sober and able to be more thoroughly assessed Medical Decision Making Medical Decision Making MDM Narrative: This is a 50-year-old male with multiple comorbid medical conditions including alcohol use disorder. Early March had calcaneal and ankle fracture that was repaired with ORIF. Went to acute rehab unclear how long he is a poor historian and actively intoxicated now. Does not appear to have any acute trauma only reason for presenting to the emergency department was being publicly intoxicated and pillowcase cleaner during were dressed passing. Think it is reasonable to allow the patient to sober up to safely reassess him 6:52 AM 04/09/2025 (Dr. Melba Luna, D.O.) patient tolerating oral intake. Ambulatory in the emergency department without assistance. At this time, he is clinically sober. Stable for discharge. Discharge Plan Discharge Clinical Impression: Alcohol dependence Patient Disposition: Home, Self-Care Instructions: Alcohol Dependence (ED) Additional Instructions: You were seen in our Emergency Department today for treatment of a behavioral health issue. It is important after your visit that you follow up with either your behavioral health provider or a primary care doctor within 7 days.? If you have trouble finding a therapist you can reach out to [address] [phone] The National Suicide and Crisis Lifeline can be reached 7 days a week 24 hours a day.? Call 988 to speak with someone.? Return for any worsening symptoms or concerns such as thoughts of self harm or harm to others. Please call 911 if you feel your mental health is worsening.? Prescriptions: No Action amlodipine 5 mg tablet 5 mg PO DAILY baclofen 10 mg tablet 10 mg PO TID gabapentin 300 mg capsule 300 mg PO DAILY folic acid 1 mg tablet 1 mg PO DAILY furosemide 20 mg tablet 10 mg PO DAILY acamprosate 333 mg tablet,delayed release (DR/EC) 666 mg PO TID calcium carbonate-vitamin D3 500 mg-10 mcg (400 unit) tablet 1 tab PO DAILY sennosides [senna] 8.6 mg tablet 17.2 mg PO DAILY paroxetine HCl 10 mg tablet 10 mg PO DAILY nicotine (polacrilex) 2 mg gum 2 mg PO PRN (Reason: Withdrawal Symptoms) thiamine HCl (vitamin B1) 100 mg tablet 100 mg PO DAILY melatonin 3 mg tablet 3 mg PO BEDTIME spironolactone 25 mg tablet 25 mg PO DAILY magnesium oxide 400 mg (241.3 mg magnesium) tablet 400 mg PO DAILY pantoprazole 40 mg tablet,delayed release (DR/EC) 40 mg PO DAILY@0630 pyridoxine (vitamin B6) 50 mg tablet 50 mg PO DAILY Santyl 250 unit/gram ointment 1 appl topical DAILY Xifaxan 550 mg tablet 550 mg PO BID multivitamin with folic acid [Tab-A-Jesse] 400 mcg tablet 1 tab PO DAILY trazodone 50 mg tablet 50 mg PO BEDTIME PRN (Reason: insomnia) hydroxyzine pamoate 50 mg capsule 50 mg PO TID PRN (Reason: Anxiety/Itching) mirtazapine 15 mg tablet 15 mg PO BEDTIME duloxetine 30 mg capsule,delayed release(DR/EC) 60 mg PO DAILY lactulose 10 gram/15 mL solution 30 ml PO BID Interventions: ED Discharge Assessment Last Done: 04/09/25 12:02 Discharge Date/Time: 04/09/25 12:03 Print Language: Maltese
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
--- OUTSIDE RECORDS SUMMARY | 2025-04-08 17:58 | XMS_ITS | Clinical Summary ---
Author Organization [facility] Address [address] [place] [address] Care Team Providers Care Dental Assisting Instructor Name Role Phone Unavailable Primary Care Provider [...] age to [place] [phone] [facility] FFS ONE [employer] Care Teams Dental Assisting Instructor Relationship Specialty Start Date End Date Jany Baig Primary Care Provider 07/05/24
--- OUTSIDE RECORDS SUMMARY | 2025-04-08 17:58 | XMS_ITS | Data Portability ---
Author Organization [place] [facility] Address [address] [place] [phone] Care Team Providers Care Health Assessment And Treatment Teacher Name Role Phone [facility] Primary Care [...] FOUND DURING WORKUP. PT HANDED OFF TO [facility] AND EXECT CALLED INTO [facility] ED FOR ACUTE TX AND EVALUATION ON EMERGENT BASIS. PT IS VERY THANKFUL OF OUR VISIT AND WILLING TO GO. HE IS IN GOOD SPIRITS DESPITE THIS. In order to obtain further information and compare any laboratory results/values, I have accessed patient records on the [employer]. This information was pertinent in my medical decision making today. [email or web address] Not available 09/27/2021 21:24:19 Plan of Treatment Reminders Order Date Submit Date Provider Last Modified By Organization Details Last Modified Time Details Appointments None recorded. Lab rapid SARS CoV 2 Ag, QL IA, respiratory specimen [address] [facility], [address] [place] [address], [phone], 21:12:50 Referral None recorded. Procedures None recorded. Surgeries None recorded. Imaging None recorded. Medication Orders None recorded. Patient TargetsNo targets recorded. Patient Instructions Encounter Date Encounter Id Patient Instructions Last Modified By Organization Details Last Modified Time 02/10/2021 [id number] Thank you for yo ur visit with [facility] today. You may have had laboratory tests [...] in your condition between 8am-10pm, please call [facility] at [phone] to help navigate your care. Thank you for your visit with [facility] today. You were seen today for treatment [...] in your condition between 8am-10pm, [facility] at [phone] to help navigate your care. Not available 02/10/2021 18:43:47 Reason for Referral None Reported. Results Created Date Observation Date Name Description Value Unit Range Abnormal Flag Note LastModifiedBy Organization Detail LastModifiedTime 09/28/19 22 09/27/2021 rapid SARS CoV 2 Ag, QL IA, respi rator y speci men Covid-19 (ref: neg) positi ve Not Available [facility] [address] [place], [address], 09/27/2021 21:12:11 09/28/19 22 09/27/2021 rapid SARS CoV 2 Ag, QL IA, respi rator y speci men Control Visual ized/V alid Not Available [facility] [address] [place], [address], 09/27/2021 21:12:11 09/28/19 22 09/27/2021 rapid SARS CoV 2 Ag, QL IA, respi rator y speci men Location [facility], [address] [place] [address], [id number] Not Available [facility] [address] [place], [address], 09/27/2021 21:12:11 Result Notes None recorded. Procedures Surgical History Date Name Laterality Status Provider Name and Address Organization Details Recorded Time insertion of stent into vein completed Loren Haines NP [address], [place], [address], [place] [facility] 02/10/2021 18:41:47 Imaging Results None recorded. Procedure Notes None recorded. Medical Equipment None Reported. Allergies Allergen ID Allergen Name Allergen Category Reaction Reaction Severity Criticality Documentation Date Start Date Code Code System Note Provider Name and Address Organization Details Recorded Time [id number] aspirin medicatio n Not available Not available Not available 02/10/2021 1191 RxNorm Loren Haines NP [address], [place], [address], [place] [facility] 18:28:39 656409 ibuprofen medicatio n Not available Not available Not available 02/10/2021 5640 RxNorm Loren Haines NP [address], [place], [address], [place] [facility] 18:28:44 954899 Non-stero idal anti-infl ammatory agent (substanc e) medicatio n Not available Not available Not available 02/10/2021 09027 5008 SNOMED Loren Haines NP [address], [place], [address], [place] [facility] 18:29:04 132275 Tylenol medicatio n Not available Not available Not available 02/10/202184877 3 RxNorm Loren Haines NP [address], [place], [address], [place] [facility] 18:29:09 [...] Smoking Status Current Every Day Smoker Loren Hianes, STEVE [address] [place] [address], [phone], [place] [facility] 02/10/2021 18:40:03 Do You [...] Visiting Friends Or Family Or Going To [employer] Or Club Meetings) 1 Or 2 Times [...] Response Diabetes N Coronary Artery Disease N Cancer N Stroke N Depression Y COPD N Asthma N High Cholesterol N Pulmonary Embolism N Hypertension Y Kidney Disease N Past Encounters Encounter ID Performer Location Encounter Start Date Encounter Closed Date Diagnosis/Indication Diagnosis SNOMED-CT Code Diagnosis ICD10 Code Diagnosis IMO Codes Diagnosis Note [id number] Loren Haines NP [facility] - [address] [place] [address] 02/10/2021 18:35:35 02/11/2021 13:59:39 Wound cellulitis 722970072 L03.90 Pain in right knee 91379 49832 91729 M25.561 Overview/H istory: Patient is a 45 [...] and started treatment for his cellulitis at [facility] previously . Review of PIVIX does show [...] be masking fever. Exam concerning for + Lunba's, right LE. Patient agreed to ED escalation . 911 called. EMS transport to [facility] ER. Phoned ahead expect. Proper Personal Protective Equipment (PPE), including gloves, eye protection and masks were donned and doffed appropriat buffy and all equipment cleaned using approved technique with germicidal disposable wipes prior to and after care of this patient according [facility]. In order to obtain further informatio n and compare any laboratory results/va lues, I have accessed old patient records. This informatio n was pertinent in my medical decision making today. [id number] HELEN Orr [facility] [place] [address] [facility] [address] 09/27/2021 19:59:16 09/28/2021 22:14:29 COVID-19 275101486 U07.1 Tachycardia 8338648 R00. 0 Chest pain 21189919 R07. 9 Health Concerns Section Related Observation LastModified by Organization Detai ls LastModified Time None Recorded Concern Status LastModified by Organization Details LastModified Time None Recorded Advance Directives Directive N: Payers Insurance Date Sequence Insurance Name Policy Number Policy Greenfield Covered Member ID Greenfield Member ID Guarantor Name 02/10/2021 1 [facility] - DOS PRIOR TO 2022 - DUAL ELIGIBLE (MEDICARE REPLACEMENT/AD VANTAGE - HMO) Bill Bassett Jr. [id number] Bill Bassett Jr. 02/10/2021 1 [facility] - DOS PRIOR TO 2022 - DUAL ELIGIBLE (MEDICARE REPLACEMENT/AD VANTAGE - HMO) Bill Bassett Jr. [id number] Bill Bassett Jr. 02/10/2021 1 *SELF PAY* Bill Bassett Jr. [id number] Bill Bassett Jr. 09/27/2021 1 [email or web address] - DOS PRIOR TO 2022 - DUAL ELIGIBLE (MEDICARE REPLACEMENT/AD VANTAGE - HMO) Bill Bassett Jr. [id number] Bill Bassett Jr. 09/27/2021 1 [employer] [facility] - DOS PRIOR TO 2022 - DUAL ELIGIBLE (MEDICARE REPLACEMENT/AD VANTAGE - HMO) Bill Bassett Jr. [id number] Bill Bassett Jr. 09/27/2021 1 [facility] - DOS PRIOR TO 2022 - DUAL ELIGIBLE (MEDICARE REPLACEMENT/AD VANTAGE - HMO) Bill Bassett Jr. [id number] Bill Bassett Jr. 09/27/2021 2 MEDICAID-[place]: [facility] Bill Bassett Jr. [id number] Bill Danyelle Holt Notes Date Note Type Note Provider Name and Address Organization Details Recorded Time 02/10/2021 text/html General HPI Template - DHReported by Patient Patient is an alert 45 year old male who is new to and new to this provider. Patient chief complaint is concerns of previously diagnosed right knee cellulits. Patient was seen at [facility] where the cellulitis was previously diagnosed. Patient [...] blind. Loren Haines NP [address], [place], [address], [place] [facility] 02/10/2021 19:58:08 09/27/2021 text/html [...] reported sx's. HELEN Cruz [address], [place], [address], [place] [facility] 09/27/2021 21:24:29
--- OUTSIDE RECORDS SUMMARY | 2025-04-08 17:58 | XMS_ITS | Clinical Summary ---
Author Organization [facility] Address [address] [place] [address] Phone Care Team Providers Care Milk Drying Machine Operator Name Role Phone Jany Baig Primary Care [...] mmol/L LAB CHEMISTRY METHOD 09/01/2024 5:36 PM [facility] Potassium 4.8 3.5 - 5.5 mmol/L LAB CHEMISTRY METHOD 09/01/2024 5:36 PM [facility] Chloride 112(H) 96 - 110 mmol/L LAB CHEMISTRY METHOD 09/01/2024 5:36 PM [facility] CO2 23 21 - 32 mmol/L LAB CHEMISTRY METHOD 09/01/2024 5:36 PM [facility] Anion Gap 6 3 - 11 LAB CHEMISTRY METHOD 09/01/2024 5:36 PM [facility] Glucose 111(H) 70 - 100 mg/dL LAB CHEMISTRY METHOD 09/01/2024 5:36 PM [facility] BUN 8 5 - 25 mg/dL LAB CHEMISTRY METHOD 09/01/2024 5:36 PM [facility] Creatinine 0.68(L) 0.70 - 1.30 mg/dL LAB CHEMISTRY METHOD 09/01/2024 5:36 PM [facility] eGFR 113 >=60 mL/min/1. 73m2 LAB CHEMISTRY METHOD 09/01/2024 5:36 PM [facility] Comment:Calculation based on the Chronic Kidney Disease Epidemiology Collaboration (CKD-EPI) equation refit without adjustment for race. BUN/Creatinine Ratio 11.8 LAB CHEMISTRY METHOD 09/01/2024 5:36 PM [facility] Calcium 8.8 8.5 - 10.5 mg/dL LAB CHEMISTRY METHOD 09/01/2024 5:36 PM [facility] AST (SGOT) 59(H) 10 - 42 unit/L LAB CHEMISTRY METHOD 09/01/2024 5:36 PM [facility] ALT (SGPT) 48 10 - 60 unit/L LAB CHEMISTRY METHOD 09/01/2024 5:36 PM EDT [facility] Alkaline Phosphatase 212(H) 42 - 121 unit/L LAB CHEMISTRY METHOD 09/01/2024 5:36 PM EDT [facility] Total Protein 6.4 6.0 - 8.0 g/dL LAB CHEMISTRY METHOD 09/01/2024 5:36 PM EDT [facility] Albumin 2.7(L) 3.2 - 5.0 g/dL LAB CHEMISTRY METHOD 09/01/2024 5:36 PM EDT [facility] Total Bilirubin 1.2 0.0 - 1.4 mg/dL LAB CHEMISTRY METHOD 09/01/2024 5:36 PM EDT [facility] Blood Venous blood specimen / Unknown Venipuncture / Unknown 09/01/2024 4:23 PM EDT 09/01/2024 4:48 PM EDT [facility] LAB BLOOD ORDERABLES Final Resu lt [facility] [address] [place] [address], from Last 3 Months or Most Recently Relevant to Health Maintenance Insurance [facility] MEDICAID [place] [id number] Advance Directives * Full Code - Confirmed (Latest Code Status on File) Date Activated Date Inactivated Comments 06/28/2024 9:16 AM 06/30/2024 7:[address] [facility] was ascertained in the following way: Code status discussion: discussion with patient To update the patient's code status, place a code status order. Do not modify or discontinue any currently active code status orders. Care Teams Milk Drying Machine Operator Relationship Specialty Start Date End Date Jany Baig DO [address] [place] [address] PCP - General Pediatrics 04/17/24
[2025-04-09 06:43] VITALS: BP 108/64; PULSE 88; TEMP 36.6; O2SAT 95
[2025-04-09 12:02] VITALS: BP 108/64; PULSE 88; RESP 14; TEMP 36.6; O2SAT 95
== END 2025-04-09 12:03 | disposition home or self-care (01) ==
PROVIDERS: Emergency Provider Emergency Medicine
DX: F10.20 Alcohol dependence, uncomplicated (principal); I10 Essential (primary) hypertension; Z89.432 Acquired absence of left foot; Z79.899 Other long term (current) drug therapy
CPT/HCPCS: 99284

== ENCOUNTER 2025-04-09 12:35 | Emergency (ER) | payer OTHER, SELFPAY ==
--- OUTSIDE RECORDS SUMMARY | 2025-04-05 16:49 | XMS_ITS | Continuity of Care Document ---
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 Name Role Phone Jany Baig DO Primary Care Physician Encounter [facility] Date(s): 04/04/25 - 04/05/[address] [address]- Discharge Disposition: A-D/C Home Attending Physician: Mariana Mcnamara DO Admitting Physician: Mariana Mcnamara DO Referring Physician: Not on Staff, Referring MD Encounter Type: Disch ES Allergies, Adverse Reactions, Alerts Substance Criticality Severity Reaction Reaction Severity Status ibuprofen 1 Hx of GI Bleed Act michael aspirin 2 Hx GI Bleed Active Tylenol [...] Vaccine Date Status Refusal Reason tetanus/diphtheria/pertussis, acel(Tdap) 12/15/24 Given tetanus/diphtheria/pertussis, acel(Tdap) 06/22/18 Given tetanus/diphtheria/pertussis, acel(Tdap) 11/25/15 Given influenza virus vaccine, inactivated 06/18/24 Give n influenza virus vaccine, inactivated 1 04/09/22 Gi [...] Hepatitis B Vaccine (old term) 08/09/12 Given pneumococcal 23-valent vaccine 03/16/15 Given Pneumococcal Vaccine (oldterm) 08/02/12 Given Tet/diphth/pertussis, acel (oldterm) 08/02/12 Give n 1Result Comment: [facility]: [id number] 2Result Comment: [04/29/2017] [id number] 3Admin Note: FLUARIX 4Admin Note: 3 RDINJ 5Admin Note: #2 Medications Aldactone 25 mg oral tablet 25 mg, 1, tablet, By Mouth, Daily, # 30 tablet, Refills 0, Tot. Refills 0, Maintenance, 01/06/24 3:25:00 PM EDT, Route to Pharmacy Electronically, [facility], Partial fill upon patient request if the prescription is for a schedule II opioid drug., 175.26, cm, 01/05/24 8:04:00 EDT, Height, 80, kg, 11/09/23 6:52:00 EDT, Dry Weight Start Date: 01/06/24 Stop Date: 02/05/24 Status: Ordered Medication Dispense Status: Completed Quantity: 30.0 Unit: tablet Total Allowed Fills: 1 Fills Dispensed: 0 amLODIPine 5 mg oral tablet 5 mg, 1, tablet, By Mouth, Daily, # 30 tablet, Refills 0, Tot. Refills 0, Maintenance, 08/09/24 12:12:00 PM EST, [id number], Partial fill upon patient requestif the prescription is for a schedule II opioid drug., 175, cm, 08/09/24 11:43:00 EST, Height, 84.5, kg, 08/09/24 11:43:00 EST, Dry Weight Start Date: 08/09/24 Status: Ordered Medication Dispense Status: Completed Quantity: 30.0 Unit: tablet Total Allowed Fills: 1 Fills Dispensed: 0 duloxetine 60 mg oral enteric coated capsule = 60 mg, By Mouth, Daily, 0 Refills, Maintenance, 03/27/25 2:43:00 PM EDT, Capsule, Partial fill upon patient request if the prescription is for a schedule II opioid drug. Start Date: 03/27/25 Status: Ordered Medication Dispense Status: Completed Total Allowed Fills: 1 Fills Dispensed: 0 Enoxaparin 0.4 mL = 40 mg, Subcutaneous Injection, Daily, for 3 more weeks (total 4 weeks post op), 0 Refills,Maintenance, 03/27/25 2:48:00 PM EDT, Injection, Partial fill upon patient request if the prescription is for a schedule II opioid drug. Start Date: 03/27/25 Stop Date: 04/17/25 Status: Ordered Medication Dispense Status: Completed Total Allowed Fills: 1 Fills Dispensed: 0 folic acid 1 mg oral tablet 1, tablet, By Mouth, Daily, ^1R1., # 30 tablet, Refills 5, Tot. Refills 5, Maintenance, 07/28/23 12:08:00 PM EST, Route to Pharmacy Electronically, [facility], 175, cm, 07/28/23 9:11:00 EST,Height, 61.3, kg, 07/12/23 23:27:00 EST, Dry Weight Start Date: 07/28/23 Status: Ordered Medication Dispense Status: Completed Quantity: 30.0 Unit: tablet Total Allowed Fills: 6 Fills Dispensed: 0 furosemide 20 mg oral tablet 20 mg, 1, tablet, By Mouth, Every other day, # 30 tablet, Refills 1, Tot. Refills 1, Maintenance, 07/28/23 12:08:00 PM EST, Route to Pharmacy Electronically, [facility], Partial fill upon patient request if the prescription is for a schedule II opioid drug., 175, cm, 07/28/23 9:11:00 EST, H eight, 61.3, kg, 07/12/23 23:27:00 EST, Dry Weight Start Date: 07/28/23 Status: Ordered Medication Dispense Status: Completed Quantity: 30.0 Unit: tablet Total Allowed Fills: 2 Fills Dispensed: 0 gabapentin 300 mg oral capsule 300 mg, 1, capsule, By Mouth, Daily at bedtime, note dose/frequency change, # 30 capsule, Refills 1, Tot. Refills 1, Maintenance, 07/28/23 12:09:00 PM EST, Route to Pharmacy Electronically, [facility], 175, cm, 07/28/23 9:11:00 EST, Height, 61.3, kg, 07/12/23 23:27:00 EST, Dry Weight Start Date: 07/28/23 Stop Date: 10/20/24 Status: Ordered Medication Dispense Status: Completed Quantity: 30.0 Unit: capsule Total Allowed Fills: 2 Fills Dispensed: 0 lactulose 10 gm/15 ml oral syrup 30 mL = 20 Gm, By Mouth, 3 times a day, HOLD IF HAVING > 3BMs daily, 0 Refills, Maintenance, 03/27/25 2:43:00 PM EDT, Syrup, Partial fill upon patient request if the prescription is for a scheduleII opioid drug. Start Date: 03/27/25 Status: Ordered Medication Dispense Status: Completed Total Allowed Fills: 1 Fills Dispensed: 0 melatonin 3 mg oral tablet 1 tablet = 3 mg, By Mouth, Daily at bedtime, 0 Refills, Maintenance, 11/06/23 6:32:00 PM EDT, Partial fill upon patient request if the prescription is for a schedule II opioid drug. Start Date: 11/06/23 Status: Ordered Medication Dispense Status: Completed Total Allowed Fills: 1 Fills Dispensed: 0 MiraLax Powder 1 pack/packet = 17 Gm, By Mouth, Daily, PRN Constipation, 0 Refills, Maintenance, 03/27/25 2:44:00 PM EDT, Powder, Partial fill upon patient request if the prescription is for a schedule II opioid drug. Start Date: 03/27/25 Status: Ordered Medication Dispense Status: Completed Total Allowed Fills: 1 Fills Dispensed: 0 pantoprazole 40 mg oral delayed release tablet 1 tablet, By Mouth, Daily, ^1R1., # 30 tablet, 5 Refills, Maintenance, 07/28/23 12:12:00 PM EST, 175, cm, 07/28/23 9:11:00 EST, Height, 61.3, kg, 07/12/23 23:27:00 EST, Dry Weight Start Date: 07/28/23 Status: Ordered Medication Dispense Status: Completed Quantity: 30.0 Unit: tablet Total Allowed Fills: 6 Fills Dispensed: 0 rifAXIMin 550 mg oral tablet = 550 mg, By Mouth, 2 times a day, # 60 tablet, 0 Refills, Maintenance, 06/19/24 5:39:00 PM EST, Tablet, [facility], Partial fill upon patient request if the prescription is for a schedule II opioid drug., 175, cm, 06/19/24 15:39:00 EST, Height, 90.2, kg, 06/18/24 5:39:00 EST, Dry Weight Start Date: 06/19/24 Stop Date: 07/19/24 Status: Ordered Medication Dispense Status: Completed Quantity: 60.0 Unit: tablet Total Allowed Fills: 1 Fills Dispensed: 0 Saljet Sterile 0.9% irrigation solution See Instructions, Use for wound care, delayed wound Right hip. T14.8XXD, # 1,000 mL, 3 Refills, Maintenance, 07/30/23 4:05:00 PM EST, Partial fill upon patient request if the prescription is for a schedule II opioid drug. Start Date: 07/30/23 Status: Ordered Medication Dispense Status: Completed Quantity: 1000.0 Unit: mL Total Allowed Fills: 4 Fills Dispensed: 0 senna 187 mg oral tablet 1 tablet = 8.6 mg, By Mouth, 2 times a day, PRN Constipation, 0 Refills, Maintenance, 03/27/25 2:44:00 PM EDT, Tablet, Partial fill upon patient request if the prescription is for a schedule II opioid drug. Start Date: 03/27/25 Status: Ordered Medication Dispense Status: Completed Total Allowed Fills: 1 Fills Dispensed: 0 Simethicone = 80 mg, By Mouth, 3 times a day, PRN as needed for gas, 0 Refills, Maintenance, 11/05/23 12:41:00 PM EDT, Partial fill upon patient request if the prescription is for a schedule II opioid drug. Start Date: 11/05/23 Status: Ordered Medication Dispense Status: Completed Total Allowed Fills: 1 Fills Dispensed: 0 Tab-A-Jesse oral tablet 1 tablet, By Mouth, Daily, R1., # 30 tablet, 5 Refills, Maintenance, 05/06/23 7:16:00 PM EST, [facility], 30, TAKE 1 TABLET BY MOUTH ONCE A DAY^1R1, 175, cm, 03/22/23 6:50:00 EDT, Height, 77.5, kg, 03/20/23 11:30:00 EDT, Dry Weight Start Date: 05/06/23 Status: Ordered Medication Dispense Status: Completed Quantity: 30.0 Unit: tablet Total Allowed Fills: 1 Fills Dispensed: 0 traZODone 50 mg oral tablet 50 mg, 1, tablet, By Mouth, Daily at bedtime, # 30 tablet, Refills 0, Maintenance, 06/17/24 12:20:00 AM EST, Partial fill upon patient request if the prescription is for a schedule II opioid drug. Start Date: 06/17/24 Status: Ordered Medication Dispense Status: Completed Quantity: 30.0 Unit: tablet Total Allowed Fills: 1 Fills Dispensed: 0 Vitamin B1 100 mg oral tablet 1, tablet, By Mouth, Daily, # 90 tablet, Refills 3, Tot. Refills 3, Maintenance, 07/28/23 12:12:00 PM EST, Route to Pharmacy Electronically, [facility], 175, cm, 07/28/23 9:11:00 EST, Height, 61.3, kg, 07/12/23 23:27:00 EST, Dry Weight Start Date: 07/28/23 Status: Ordered Medication Dispense Status: Completed Quantity: 90.0 Unit: tablet Total Allowed Fills: 4 Fills Dispensed: 0 Vitamin B6 50 mg oral tablet 1, tablet, By Mouth, Daily, R1., # 90 tablet, Refills 4, Tot. Refills 4, Maintenance, 07/28/23 12:11:00 PM EST, Route to Pharmacy Electronically, [facility], 175, cm, 07/28/23 9:11:00 EST, Height, 61.3, kg, 07/12/23 23:27:00 EST, Dry Weight Start Date: 07/28/23 Status: Ordered Medication Dispense Status: Completed Quantity: 90.0 Unit: tablet Total Allowed Fills: 5 Fills Dispensed: 0 Walker See Instructions, # 1 Unknown, Maintenance, Walker for unsteady gait and frequent falls. Heigth 172cm, Weight 82 kg, 12/07/24 12:35:00 PM EDT, Supply Start Date: 12/07/24 Status: Ordered Medication Dispense Status: Completed Quantity: 1.0 Unit: Unknown Total Allowed Fills: 1 Fills Dispensed: 0 Walker See Instructions, # 1 Unknown, Maintenance, Walker for unsteady gait and frequent falls. Height 172cm, Weight 82 kg, 12/07/24 12:38:00 PM EDT, Supply Start Date: 12/07/24 Status: Ordered Medication Dispense Status: Completed Quantity: 1.0 Unit: Unknown Total Allowed Fills: 1 Fills Dispensed: 0 walker walker, See Instructions, # 1 each, Refills 0, Tot. Refills 0, Maintenance, Height: 5' 9 Weight: 84kg Dx: knee pain, 04/15/24 1:36:00 PM EDT, Supply Start Date: 04/15/24 Status: Ordered Medication Dispense Status: Completed Quantity: 1.0 Unit: each Total Allowed Fills: 1 Fills Dispensed: 0 Mental Status Mental Status Assessment Assessment Assessment Component Result Effecti ve Date [place] coma score total 15 Problem List Condition Confirmation Course Effective Dates [...] Exam Date Time Procedure Performing Provider Status 04/05/25 3:45 PM US Doppler Ext Lower Venous Left Auth (Verified) Notes: (US Doppler Ext Lower Venous Left) Reason For Exam: Pain in limb;Other: RESULT: US Doppler Ext Lower Venous Left US Doppler Ext Lower Venous Left Hx of Present Illness: pt coming in wtih left ankle pain after rolling it getting out of bed. Wouldalso like to speak with crisis; Reason: Other:; Pain in limb; Clinical Question(s): Thrombus COMPARISON: None IMAGING TECHNIQUE: Ultrasound of the [...] femoral vein: Patent. No thrombosis. OTHER FINDINGS: IMPRESSION: No evidence of deep venous thrombosis. WSN: [id number] Ordering Physician: Devin Menon Dictated By: Gerard Sanchez MD Dictated Date/Time: 04/05/25 5:10 pm Reviewed By: Gerard Sanchez MD Signed By: Gerard Sanchez MD Signed Date/Time: 04/05/25 5:10 pm Transcribed By: MIRNA Transcribed Date/Time: 04/05/25 5:09 pm * Exam Date Time Procedure Performing Provider Status 04/05/25 1:40 PM Elbow Min 3 Views Right Auth (Verified) Notes: (Elbow Min 3 Views Right) Reason For Exam: Pain RESULT: Elbow Min 3 Views Right Elbow Min 3 Views Right, 3 views HX OF PRESENT ILLNESS: pt coming in wtih left ankle pain after rolling it getting out of bed. Wouldalso like to speak with crisis; Reason: Pain; Clinical Question(s): Fracture COMPARISON: Multiple priors, most recent from 12/06/2024. FINDINGS: No fracture or dislocation. No arthritic changes. No joint effusion. IMPRESSION: No acute fracture. No change. I have personally reviewed the images and I agree with this report. WSN: [id number] Ordering Physician: Devin Menon Dictated By: Lowell Griffin MD Dictated Date/Time: 04/05/25 3:07 pm Reviewed By: Royer Patterson MD, V Signed By: Royer Patterson MD, V Signed Date/Time: 04/05/25 3:12 pm Transcribed By: MIRNA Transcribed Date/Time: 04/05/25 2:03 pm * Exam Date Time Procedure Performing Provider Status 04/05/25 1:15 AM Ankle Min 3 Views Left A uth (Verified) Notes: (Ankle Min 3 Views Left) Reason For Exam: with Pain;Trauma RESULT: Ankle Min 3 Views Left Ankle Min 3 Views Left Reason: Trauma; with Pain; Clinical Question(s): Fracture COMPARISON: 03/16/2025 FINDINGS: 3 views left ankle demonstrate chronic minimally displaced fracture of the medial malleolus of the distal tibia. Ankle mortise is intact. There are posterior calcaneal comminuted fractures with interval surgical clips present.. Chronic first metatarsal plate and multiple screws present. IMPRESSION: Healing chronic fractures of the medial malleolus distal tibia and posterior calcaneus, as above. WSN: [id number] Ordering Physician: Rosa Perdomo Dictated By: Rodrick Callahan MD Dictated Date/Time: 04/05/25 12:35 p Reviewed By: Rodrick Callahan MD Signed By: Rodrick Callahan MD Signed Date/Time: 04/05/25 12:35 pm Transcribed By: MIRNA Transcribed Date/Time: 04/05/25 12:32 pm Vital Signs Most recent to oldest [Reference Range]: 1 2 3 Height 175 cm (04/05/25 4:48 PM) 175 cm (04/04/25 11:50 PM) Weight 90.0 kg (04/05/25 4:48 PM) 90.0 kg (04/04/25 11:50 PM) Oxygen Saturation [94-100 %] 100 % (04/05/25 12:55 PM) 100 % (04/05/25 2:34 AM) 100 % (04/04/25 11:50 PM) Pulse Rate [55-90 bpm] 82 bpm (04/05/25 12:55 PM) 96 bpm *H* (04/05/25 2:34 AM) 99 bpm *H* (04/04/25 11:50 PM) Body Mass Index [18.5-24.99 kg/m2] 29.39 kg/m2 *H* (04/04/25 11:50 PM) Blood Pressure [90-138/55-84 mm Hg] 134/76mm Hg (04/05/25 12:55 PM) 134/74mm Hg (04/05/25 2:34 AM) 170/87mm Hg *H* (04/04/25 11:50 PM) Respiratory Rate [16-30 br/min] 16 br/min (04/05/25 12:55 PM) 17 br/min (04/05/25 2:34 AM) 18 br/min (04/04/25 11:50 PM) Temperature [96.8-100.4 DegF] 98.3 DegF (04/05/25 12:55 PM) 98.0 DegF (04/05/25 2:34 AM) 98.1 DegF (04/04/25 11:50 PM) Mode of Delivery (Oxygen) Room air (04/05/25 12:55 PM) Room air (04/05/25 2:34 AM) Room air (04/04/25 11:50 PM) Blood pressure sites Arm, left (04/05/25 12:55 PM) Arm, left (04/05/25 2:34 AM) Arm, left (04/04/25 11:50 PM) Temperature Route Oral (04/05/25 12:55 PM) Oral (04/05/25 2:34 AM) Oral (04/04/25 11:50 PM) Dry Weight 90.0 kg (04/05/25 4:48 PM) 90.0 kg (04/04/25 11:50 PM) Weight Obtained Via Standing scale (04/04/25 11:50 PM) Dry Weight Obtained Via Standing scale (04/04/25 11:50 PM) Social History Social History Type Response Sexual Sexually involved in last 6 months: No. Smoking Status 5-9 cigarettes (betw een 1/4 to 1/2 pack)/day in last 30 days; Interested in cessation: No; Patient wants NRT during admission No; Type: Cigarettes; Stopped at age: 40; entered on: 06/16/24 Sex Male Sex Representation Male (finding) Status N/A Patient Care team information Care Team Personnel Name: Cody Curiel Position: [facility] Associate Professional Member Role: Lifetime Consulting Provider Address: [address] [place] [address] #[facility] [address] Telecom: Name: Shira Galindo RN Position: [facility] RN Member Role: Primary Care Nurse Name: Alexandra Colmenares RN Position: [facility] [...] Tasks Member Role: Primary Care Nurse Name: Cadence Trujillo RN Position: S RN Member Role: Primary Care Nurse Name: Jean Epstein RN Position: S RN Member Role: Primary Care Nurse Name: Maria Esther Craig LPN Position: S RN Member Role: Primary Care Nurse Name: Torrie Borrero RN Position: S RN Member Role: Primary Care Nurse Name: Kaye Comer RN Position: S RN Member Role: Primary Care Nurse Name: Kenyatta Kirby RN Position: [facility] RN Member Role: Primary Care Nurse Name: Ashley Lin RN Position: [facility] RN Member Role: Primary Care Nurse Name: Joaquim Conn RN Position: [facility] RN Member Role: Primary Care Nurse Name: Andres Pressley RN Position: [facility] Sin RN Member Role: Primary Care Nurse Name: Jany Baig DO Position: [facility] Physician - Primary Care Member Role: PCP Address: [address] [place] [address] [place] [address]- Telecom: Name: Tri Castro RN Position: [facility] RN Member Role: Primary Care Nurse Name: Mary Haines NP Position: [facility] Associate Professional Member Role: Primary Care Nurse Address: [address] [place] [address]- Telecom: Name: Garima Curry RN Position: [facility] RN Member Role: Primary Care Nurse Name: Malgorzata Austin RN Position: [facility] RN Member Role: Primary Care Nurse Name: Ibeth Adams RN Position: [facility] RN Member Role: Primary Care Nurse Name: Torrie Hernandez RN Position: [facility] OB RN Member Role: Primary Care Nurse Name: Yoselin Jones RN Position: [facility] RN Member Role: Primary Care Nurse Name: Gretchen Knutson RN Position: [facility] SN RN Member Role: Primary Care Nurse Name: Aislinn Mckee RN Position: [facility] RN Member Role: Primary Care Nurse Name: Ashley Mcelroy RN Position: [facility] RN Member Role: Primary Care Nurse Name: Ashok Kevin RN Position: [facility] RN Member Role: Primary Care Nurse Name: Eben Villavicencio RN Position: [facility] RN Member Role: Primary Care Nurse Name: Riley Delgado RN Position: [facility] RN Member Role: Primary Care Nurse Name: Alexandra Simon RN Position: [facility] RN Member Role: Primary Care Nurse Name: Paige Nascimento RN Position: [facility] RN Member Role: Primary Care Nurse Name: Leni Roldan RN Position: [facility] RN Member Role: Primary Care Nurse Name: Kacey Woodard RN Position: [facility] RN Member Role: Primary Care Nurse Name: Sue Combs RN Position: [facility] RN Member Role: Primary Care Nurse Name: Ge Covarrubias RN Position: [facility] [...] Position: [facility] Outreach Member Role: Lifetime Consulting Physician Address: [address] [facility] [address] [facility], [place] [address]- Telecom: Name: Kimberley Pittman RN Position: [facility] RN Member Role: Primary Care Nurse Name: Darlene Rodrigez RN Position: [facility] RN Member Role: Primary Care Nurse Name: Alison Helton RN Position: [facility] RN Member Role: Primary Care Nurse Name: Lucina Renner RN Position: [facility] RN Member Role: Primary Care Nurse Name: Dixie Duke RN Position: [facility] RN Member Role: Primary Care Nurse Name: Kwan Mills RN Position: [facility] RN Member Role: Primary Care Nurse Name: Ange Patel Position: [facility] RN Member Role: Primary Care Nurse Name: Brionna Rios RN Position: [facility] RN Member Role: Primary Care Nurse Name: Ingrid Verdugo RN Position: [facility] RN Member Role: Primary Care Nurse Name: Terra Fishman RN Position: [facility] RN Member Role: Primary Care Nurse Name: Monica Rowell RN Position: [facility] RN Member Role: Primary Care Nurse Name: Anita Hodges RN Position: [facility] RN Member Role: Primary Care Nurse Name: Jimi Fitzpatrick RN Position: [facility] RN Member Role: Primary Care Nurse Care Team Related Persons Name: MARLEN CABEZAS Name: MARLEN CABEZAS Name: NICK CABEZAS Name: GEMA CABEZAS Name: ELTON CHENG Name: LAURO QUEVEDO Insurance Providers Guarantor name: GEMA CABEZAS Health Plan Information #: 1 Payer: [facility] Payer Identifier: NA Member Number: [id number] Group Number: [id number] Subscriber Identifier: [id number] Relationship to Subscriber: self Coverage Type: Medicare Managed Care (Includes Medicare Advantage Plans) Coverage Verification Date: NA Telecom: NA Address: NA
--- OUTSIDE RECORDS SUMMARY | 2025-04-08 05:33 | XMS_ITS | Continuity of Care Document ---
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 Role Phone Jany Baig DO Primary Care Physician [place] [facility] [place]07[place] - 04/08/[address] [address]- Encounter Diagnosis Ankle pain, left(Final) - 04/08/25 Discharge Disposition: A-D/C Home Attending Physician: Jem [...] acel(Tdap) 11/25/15 Given influenza virus vaccine, inactivated 1/5/25 Give n influenza virus vaccine, inactivated 1 [...] 1Result Comment: [facility]: 11195-455-41 2Result Comment: [04/29/2017] 96240-048-20 3Admin Note: FLUARIX 4Admin Note: 3 RDINJ 5Admin Note: #2 Medications Aldactone 25 mg oral tablet 25 mg, 1, tablet, By Mouth, Daily, # 30 tablet, Refills 0, Tot. Refills 0, Maintenance, 01/06/24 3:25:00 PM EDT, Route to Pharmacy Electronically, [facility], Partial fill upon [...] 12:12:00 PM EST, [id number], Partial fill upon patient requestif the [...] 12:08:00 PM EST, Route to Pharmacy Electronically, [facility], 175, cm, 07/28/23 9:11:00 EST,Height, 61.3, [...] 12:08:00 PM EST, Route to Pharmacy Electronically, [facility], [...] 12:09:00 PM EST, Route to Pharmacy Electronically, [facility], 175, cm, 07/28/23 9:11:00 EST, Height, [...] Refills, Maintenance, 06/19/24 5:39:00 PM EST, Tablet, [facility] 3, Partial fill upon patient request [...] 5 Refills, Maintenance, 05/06/23 7:16:00 PM EST, [facility], 30, TAKE 1 [...] 12:12:00 PM EST, Route to Pharmacy Electronically, [facility], 175, cm, 07/28/23 9:11:00 EST, Height, 61.3, kg, 07/12/23 23:27:00 EST, Dry Weight Start Date: 07/28/23 Status: Ordered Medication Dispense Status: Completed Quantity: 90.0 Unit: tablet Total Allowed Fills: 4 Fills Dispensed: 0 Vitamin B6 50 mg oral tablet 1, tablet, By Mouth, Daily, R1., # 90 tablet, Refills 4, Tot. Refills 4, Maintenance, 07/28/23 12:11:00 PM EST, Route to Pharmacy Electronically, [facility], 175, cm, 07/28/23 9:11:00 EST, Height, [...] Assessment Assessment Component Result Effecti ve Date [place] coma score total 15 Mental Status Assessment Assessment Assessment Component Result Effecti ve Date Lashay coma score total 15 Mental Status Assessment Assessment Assessment Component Result Effecti ve Date Lashay coma score total 14 Problem List Condition Confirmation Course Effective Dates [...] Exam Date Time Procedure Performing Provider Status 04/08/25 12:32 AM Ankle Min 3 Views Left Auth (Verified) Notes: (Ankle Min 3 Views Left) Reason For Exam: Pain RESULT: Ankle Min 3 Views Left Ankle Min 3 Views Left Hx of Present Illness: Patient GINO from [place] for evaluation of left ankle pain, patient states he had recent surgey. Stitches remain intact by achilles. Edema noted to left foot and ankle. Patientalso reporting alcohol use today, states I drank the whole liquior store. ; Reason: Pain; ClinicalQuestion(s): Healing Fracture COMPARISON: 04/05/2025 FINDINGS: Again seen mildly displaced fracture present at the medial malleolus. Small osseous density at the inferior tip of the fibula is also unchanged, likely an avulsion fracture. Comminuted fracture involving the posterior calcaneus is with similar appearance of surgical clips. There is overlying soft tissue swelling. Superior-posterior calcaneus soft tissue swelling is slightly increased. There is edema obscuring the posterior ankle fat pad. Small ankle joint effusion. IMPRESSION: Increased soft tissue swelling posterior to the calcaneus and increased obscuration of the fat padsat the posterior ankle joint. Please evaluate clinically for signs of edema or infection. No acute osseous changes similar appearance of previous fractures compared to 04/05/2025, is further detailed above. WSN: [id number] Ordering Physician: Han Sanchez Dictated By: Eden Resendiz MD Dictated Date/Time: 04/08/25 5:12 am Reviewed By: Eden Resendiz MD Signed By: Eden Resendiz MD Signed Date/Time: 04/08/25 5:12 am Transcribed By: MIRNA Transcribed Date/Time: 04/08/25 5:10 am * Exam Date Time Procedure Performing Provider Status 04/08/25 12:28 AM US Doppler Ext Lower Venous Left Auth (Verified) Notes: (US Doppler Ext Lower Venous Left) Reason For Exam: Pain in limb;Other: RESULT: US Doppler Ext Lower Venous Left US Doppler Ext Lower Venous Left Hx of Present Illness: Patient GINO from [place] for evaluation of left ankle pain, patient states he had recent surgey. Stitches remain intact by achilles. Edema noted to left foot and ankle. Patientalso reporting alcohol use today, states I drank the whole liquior store. ; Reason: Other:; Pain in limb; Clinical Question(s): Thrombus COMPARISON: 04/05/2025 IMAGING TECHNIQUE: Ultrasound of the veins from [...] IMPRESSION: No evidence of deep venous thrombosis. I have personally reviewed the images and I agree with this report. WSN: [id number] Ordering Physician: Han Sanchez Dictated By: Roshan Patterson MD Dictated Date/Time: 04/08/25 6:17 am Reviewed By: Los Hinson MD Signed By: Los Hinson MD Signed Date/Time: 04/08/25 6:22 am Transcribed By: MIRNA Transcribed Date/Time: 04/08/25 0:35 am Vital Signs Most recent to oldest [Reference Range]: 1 2 3 Oxygen Saturation [94-100 %] 98 % (04/08/25 4:54 AM) 98 % (04/08/25 2:00 AM) 96 % (04/08/25 12:07 AM) Pulse Rate [55-90 bpm] 86 bpm (04/08/25 4:54 AM) 95 bpm *H* (04/08/25 2:00 AM) 86 bpm (04/08/25 12:07 AM) Blood Pressure [90-138/55-84 mm Hg] 129/80mm Hg (04/08/25 4:54 AM) 120/79mm Hg (04/08/25 2:00 AM) 134/79mm Hg (04/08/25 12:07 AM) Respiratory Rate [16-30 br/min] 16 br/min (04/08/25 4:54 AM) 18 br/min (04/08/25 2:00 AM) 16 br/min (04/08/25 12:07 AM) Temperature [96.8-100.4 DegF] 98.8 DegF (04/08/25 4:54 AM) 98.2 DegF (04/08/25 2:00 AM) 98.2 DegF (04/08/25 12:07 AM) Mode of Delivery (Oxygen) Room air (04/08/25 4:54 AM) Room air (04/08/25 2:00 AM) Room air (04/08/25 12:07 AM) Blood pressure sites Arm, right (04/08/25 4:54 AM) Arm, right (04/08/25 2:00 AM) Arm, right (04/08/25 12:07 AM) Temperature Route Oral (04/08/25 4:54 AM) Oral (04/08/25 2:00 AM) Oral (04/08/25 12:07 AM) Social History Social History Type Response Sexual [...] Care Team Personnel Name: Cody Curiel Position: [facility] Associate Professional Member Role: Lifetime Consulting Provider Address: [address] [facility] [place] [address]- Telecom: Name: Shira Galindo RN Position: [facility] RN Member Role: Primary Care Nurse Name: Alexandra Colmenares RN Position: [facility] [...] Care Nurse Name: Cadence Trujillo RN Position: [facility] RN Member Role: Primary Care Nurse Name: Jean Epstein RN Position: [facility] RN Member Role: Primary Care Nurse Name: Maria Esther Craig LPN Position: [facility] RN Member Role: Primary Care Nurse Name: Torrie Borrero RN Position: [facility] RN Member Role: Primary Care Nurse Name: Kaye Comer RN Position: [facility] RN Member Role: Primary Care Nurse Name: Kenyatta Kirby RN Position: [facility] RN Member Role: Primary Care Nurse Name: Ashley Lin RN Position: [facility] RN Member Role: Primary Care Nurse Name: Joaquim Conn RN Position: [facility] RN Member Role: Primary Care Nurse Name: Andres Pressley RN Position: [facility] Sin RN Member Role: Primary Care Nurse Name: Jany Baig DO Position: [facility] Physician - Primary Care Member Role: PCP Address: [address] [place] [address] [facility] [place] [address]- [place] Telecom: Name: Tri Castro RN Position: [facility] RN Member Role: Primary Care Nurse Name: Mary Haines NP Position: [facility] Associate Professional Member Role: Primary Care Nurse Address: [address] [place] [address]- [place] Telecom: Name: Garima Curry RN Position: [facility] RN Member Role: Primary Care Nurse Name: Malgorzata Austin RN Position: [facility] RN Member Role: Primary Care Nurse Name: Ibeth Adams RN Position: [facility] RN Member Role: Primary Care Nurse Name: Torrie Hernandez RN Position: [facility] OB RN Member Role: Primary Care Nurse Name: Yoselin Jones RN Position: [facility] RN Member Role: Primary Care Nurse Name: Gretchen Knutson RN Position: [facility] SN RN Member Role: Primary Care Nurse Name: Aislinn Mckee RN Position: [facility] RN Member Role: Primary Care Nurse Name: Ashley Mcelroy RN Position: [facility] RN Member Role: Primary Care Nurse Name: Ashok Kevin RN Position: [facility] RN Member Role: Primary Care Nurse Name: Eben Villavicencio RN Position: [facility] RN Member Role: Primary Care Nurse Name: Riley Delgado RN Position: [facility] RN Member Role: Primary Care Nurse Name: Alexandra Simon RN Position: [facility] RN Member Role: Primary Care Nurse Name: Paige Nascimento RN Position: [facility] RN Member Role: Primary Care Nurse Name: Leni Roldan RN Position: [facility] RN Member Role: Primary Care Nurse Name: Kacey Woodard RN Position: [facility] RN Member Role: Primary Care Nurse Name: Sue Combs RN Position: [facility] RN Member Role: Primary Care Nurse Name: Ge Covarrubias RN Position: [facility] RN Member Role: Primary Care Nurse Name: Orin Elmore RN Position: [facility] ED RN W/OE and Tasks Member Role: Primary Care Nurse Name: Allegra Liu RN Position: [facility] AMB Nurse Member Role: Primary Care Nurse Name: Shayan Pandya MD Position: [facility] Outreach Member Role: Lifetime Consulting Physician Address: [address] [place] [address] [address] [facility] [place] [address]- Telecom: Name: Kimberley Pittman RN Position: [facility] RN Member Role: Primary Care Nurse Name: Darlene Rodrigez RN Position: [facility] RN Member Role: Primary Care Nurse Name: Alison Helton RN Position: [facility] RN Member Role: Primary Care Nurse Name: Lucina Renner RN Position: [facility] RN Member Role: Primary Care Nurse Name: Dixie Duke RN Position: [facility] RN Member Role: Primary Care Nurse Name: Kwan Mills RN Position: [facility] RN Member Role: Primary Care Nurse Name: Ange Patel Position: [facility] RN Member Role: Primary Care Nurse Name: Brionna Rios RN Position: [facility] RN Member Role: Primary Care Nurse Name: Ingrid Verdugo RN Position: [facility] RN Member Role: Primary Care Nurse Name: Terra Fishman RN Position: [facility] RN Member Role: Primary Care Nurse Name: Monica Rowell RN Position: [facility] RN Member Role: Primary Care Nurse Name: Anita Hodges RN Position: [facility] RN Member Role: Primary Care Nurse Name: Jimi Fitzpatrick RN Position: [facility] RN Member Role: Primary Care Nurse Care Team Related Persons Name: MARLEN CABEZAS Name: MARLEN CABEZAS Name: NICK CABEZAS Name: GEMA CABEZAS Name: ELTON CHENG Name: LAURO QUEVEDO Insurance Providers Guarantor name: GEMA CABEZAS Health Plan Information #: 1 Payer: [facility] Payer Identifier: KEM Member Number: [id number] Group Number: [id number] Subscriber Identifier: [id number] Relationship to Subscriber: self Coverage Type: Medicare Managed Care (Includes Medicare Advantage Plans) Coverage Verification Date: NA Telecom: NA Address:
--- NOTE | ~2025-04-09 | CT_ITS ---
EXAMINATION: CT CERVICAL SPINE WITHOUT CONTRAST CLINICAL INFORMATION: Fall with head trauma COMPARISON: 02/12/2022 TECHNIQUE: Axial imaging was performed from the base of the skull through T2 without IV contrast. Coronal and sagittal reformatted images were generated from the original axial data set. ALARA: The examination used one or more of the following radiation dose reduction techniques: Automated exposure control, iterative reconstruction, and/or adjustment of mA and/or KV. FINDINGS: Again noted is moderate degenerative changes C6-7 with [id number] disc space narrowing and large anterior osteophytes that are increasing in size since the last exam. Milder degenerative changes are present at C5-6. Moderate facet arthropathy is present at C7-T1, and on the left at C3-4, and to a lesser degree at C4-5.. There is a healed fracture involving the proximal left clavicle. No acute fractures are identified. CT/CT cervical spine wo IV con IMPRESSION: No acute fracture. Multifocal degenerative changes have minimally increased since the prior. Electronically signed by: Daniel Trotter MD 04/09/2025 01:57 PM EDT
--- NOTE | ~2025-04-09 | CT_ITS ---
EXAMINATION: CT HEAD WITHOUT CONTRAST CLINICAL INFORMATION: Fall, head strike COMPARISON: CT head 08/25/2020 TECHNIQUE: Contiguous axial imaging was performed from the skull base to vertex without intravenous administration of contrast. This CT examination was performed using dose optimization techniques as appropriate, variously including the following: *Automated exposure control *Adjustment of mA and/or kV according to patient size (this includes techniques or standardized protocols for targeted exams where dose is matched to indication/reason for exam; i.e. extremities or head) *Use of iterative reconstruction technique FINDINGS: There is no evidence of acute intracranial hemorrhage or edematous large vessel territorial infarction. No abnormal mass effect or midline shift is seen. Clancy to white matter differentiation is well preserved. No abnormal extra-axial fluid collections are identified. No hydrocephalus. No abnormal attenuation in the brain parenchyma.. No acute calvarial fracture.. Paranasal sinuses and mastoid air cells are well-aerated. CT/CT head/brain wo IV con IMPRESSION: No CT evidence of acute intracranial hemorrhage or edematous territorial infarction.. Electronically signed by: Calvin Santana MD 04/09/2025 01:59 PM EDT
--- NOTE | ~2025-04-09 | XR_ITS ---
EXAMINATION: XR ANKLE 3 OR MORE VIEWS LEFT HISTORY: twisted, recent surgery COMPARISON: There are no prior studies available for comparison. FINDINGS: Three views of the left ankle are submitted. Osseous mineralization is normal. There is a mildly displaced fracture of the medial malleolus. There is a moderately displaced fracture of the posterior calcaneus. Multiple surgical clips are seen about the calcaneus. A side plate and orthopedic screws are seen along the 1st metatarsal shaft. The joint spaces are preserved. The soft tissues are unremarkable. XR/XR ankle LT min 3V IMPRESSION: 1. Mildly displaced fracture of the medial malleolus. 2. Displaced fracture of the posterior calcaneus. Multiple surgical clips are noted in this region. Comparison with prior outside studies is recommended. Electronically signed by: Elton Wright MD 04/09/2025 03:40 PM EDT
[2025-04-09 12:54] VITALS: BP 152/72; PULSE 111; RESP 20; TEMP 37.1; O2SAT 99; BMI 29.5
--- NOTE | 2025-04-09 12:57 | ED.GENADULT ---
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 States that he was going down a ramp however stepped on stairs and fell backwards, admits to brief LOC. Denies anticoagulation use. Admits to drinking about 4 [employer] daily, last drink last night. Does report history of ETOH withdrawal, unknown seizures. States twisted his left ankle. Also requesting detox/CARE team consult. Denies CP/SOB, abdominal pain, nausea/vomiting, symptoms prior to fall Related Data Home Medications ?Medication ?Instructions ?Recorded ?Confirmed acamprosate 333 mg tablet,delayed 666 mg PO TID 12/17/23 12/17/23 release amlodipine 5 mg tablet 5 mg PO DAILY 12/17/23 12/17/23 baclofen 10 mg tablet 10 mg PO TID 12/17/23 12/17/23 calcium 500 mg (as 1 tab PO DAILY 12/17/23 12/17/23 carbonate)-vitamin D3 10 mcg (400 unit) tablet collagenase clostridium histo. 250 1 appl topical DAILY 12/17/23 12/17/23 unit/gram topical ointment (Santyl) folic acid 1 mg tablet 1 mg PO DAILY 12/17/23 12/17/23 furosemide 20 mg tablet 10 mg PO DAILY 12/17/23 12/17/23 gabapentin 300 mg capsule 300 mg PO DAILY 12/17/23 12/17/23 magnesium oxide 400 mg (241.3 mg 400 mg PO DAILY 12/17/23 12/17/23 magnesium) tablet melatonin 3 mg tablet 3 mg PO BEDTIME 12/17/23 12/17/23 multivitamin with folic acid 400 1 tab PO DAILY 12/17/23 12/17/23 mcg tablet (Tab-A-Jesse) nicotine (polacrilex) 2 mg gum 2 mg PO PRN Withdrawal Symptoms 12/17/23 pantoprazole 40 mg tablet,delayed 40 mg PO DAILY@0630 12/17/23 12/17/23 release paroxetine HCl 10 mg tablet 10 mg PO DAILY 12/17/23 12/17/23 pyridoxine (vitamin B6) 50 mg 50 mg PO DAILY 12/17/23 12/17/23 tablet rifaximin 550 mg tablet (Xifaxan) 550 mg PO BID 12/17/23 12/17/23 sennosides 8.6 mg tablet (senna) 17.2 mg PO DAILY 12/17/23 12/17/23 spironolactone 25 mg tablet 25 mg PO DAILY 12/17/23 12/17/23 thiamine HCl (vitamin B1) 100 mg 100 mg PO DAILY 12/17/23 12/17/23 tablet duloxetine 30 mg capsule,delayed 60 mg PO DAILY 12/14/24 release hydroxyzine pamoate 50 mg capsule 50 mg PO TID PRN Anxiety/Itching 12/14/24 lactulose 10 gram/15 mL oral 30 ml PO BID 12/14/24 solution mirtazapine 15 mg tablet 15 mg PO BEDTIME 12/14/24 trazodone 50 mg tablet 50 mg PO BEDTIME PRN insomnia 12/14/24 Allergies Allergy/AdvReac Type Severity Reaction Status Date / Time acetaminophen (From TYLENOL) Allergy Intermediate ULCERS Verified 04/09/25 12:57 aspirin (ASA) Allergy Unknown VOMITING Verified 04/09/25 12:57 BLOOD Review of Systems Review of Systems: Yes all other systems are reviewed and are negative Constitutional: Constitutional: Reports as per [facility] Past Medical History Attestation statement: The following information was validated with the patient. Source: old records reviewed Medical History Cirrhosis Alcoholism Nasal fracture Legally blind Hypertension Depression Heart murmur Surgical History S/P TIPS (transjugular intrahepatic portosystemic shunt) Social History Social History Alcohol intake: current Alcohol intake frequency: 3 or more drinks per day Alcohol type: hard liquor Smoked in Last 30 Days: Yes Use of substances other than those prescribed or required for medical reasons: Yes Substance Use Type: Crack/Cocaine Advance Directives: Yes Advance Directives on File: Yes Advance Directives Date on File: 12/20/23 Physical Exam ED Vital Signs: Vital Signs - 24 hr 04/09/25 12:54 04/09/25 16:00 04/09/25 18:09 Temperature 98.8 F 98.8 F 98.7 F Pulse Rate 111 H 96 90 Respiratory Rate 20 16 18 Blood Pressure 152/72 H 141/74 H 135/64 Pulse Oximetry 99 97 98 Oxygen Delivery Method Room Air Room Air Room Air 04/09/25 21:46 04/10/25 08:04 Temperature 98.1 F Pulse Rate 87 Respiratory Rate 20 Blood Pressure 123/59 L Pulse Oximetry 97 Oxygen Delivery Method Room Air BMI result Body Mass Index 29.5 Const General: cooperative and no acute distress Orientation/consciousness: patient oriented x3 Limitations: no limitations HENMT Head: Yes normal to inspection and Yes atraumatic Ears: hearing grossly normal bilaterally General nose exam: Normal external nose present Face and sinus: Yes normal facial exam Eyes General: appearance normal, both eyes and all related structures Pupils: Equal, round and reactive pupils present EOM: EOMs intact bilaterally Neck Neck: Yes normal visual inspection and Yes no meningeal signs Chest Chest palpation & inspection: normal palpation of entire chest wall Resp Effort & Inspection: normal respiratory effort and no respiratory distress Cardio Rate: regular rate Heart sounds: S1 normal heart sound present and S2 normal heart sound present GI Inspection: Yes normal to inspection Palpation (GI): Soft to palpation, nontender, no guarding and not rigid Back/Spine/Pelvis Other: No midline cervical/thoracic/lumbar spinous tenderness/step-off or deformity Skin Rashes: no rashes Neuro General: patient oriented x3, tone normal, moves all extremities, no meningeal signs, no focal motor deficits and CN's II-XI intact bilaterally Cranial nerves: Yes CN's II-XII intact bilaterally, Yes Equal, round and reactive pupils present and Yes Bilaterally intact EOM present Motor exam (neuro): 5/5 motor strength present throughout Extrem Other: Left ankle/foot with surgical changes with sutures intact. Appreciable swelling/edema to LLE w/tenderness to palpation. Neurovascularly intact distally. No overlying erythema/warmth. No crepitus. No fluctuance or induration Course Course Course Narrative: Rapid medical examination performed in triage by Jenna Schulz PA-C. Patient is a 50 year old assigned male at presenting to the emergency department with a fall and head strike. Detailed physical exam and review of systems are deferred to the ball mill mixer. [EKG/labs/imaging/swabs] ordered. Patient placed back in the waiting room pending room availability and results. Patient states that he would like to speak with CARE team as well. -1600--labs reassuring. Ethanol negative. CT head/brain wo IV con IMPRESSION: No CT evidence of acute intracranial hemorrhage or edematous territorial infarction. CT cervical spine wo IV con IMPRESSION: No acute fracture. Multifocal degenerative changes have minimally increased since the prior. XR ankle LT min 3V IMPRESSION: 1. Mildly displaced fracture of the medial malleolus. 2. Displaced fracture of the posterior calcaneus. Multiple surgical clips are noted in this region. Comparison with prior outside studies is recommended. > reviewed imaging from [facility]. X-ray from 04/08 shows mildly displaced fracture of the medial malleolus. Small osseous density at the inferior tip of the fibula also unchanged. And comminuted fracture involving the posterior calcaneus with surgical clips. > this x-ray today appears unchanged. Patient also had venous duplex ultrasound which showed no evidence of DVT. -physician observation initiated at 16:10 as patient needs more time to be evaluated by recovery -1700--ED care transferred to [facility] pending recovery consult. Reevaluation(s) Reevaluation #1: Patient is seen by the care team, he was evaluated for detox but unfortunately there are no beds available tonight. Plan to discharge the patient tomorrow morning to [facility] [place]. He will be discharged by [facility] from the care team Time: 18:51 Reevaluation #2: 04/10/2025 8:38 Am seen by crisis/recovery cleared for d/c,this will end the ED Obs Time: 08:39 Medical Decision Making Medical Decision Making [facility] Narrative: 50-year-old male with a past medical history ETOH use disorder, HTN, esophageal varices s/p TIPS, ANA LUISA, anxiety, depression, recent calcaneal fracture with ORIF on 03/20, presenting to the ED complaining of headache and left ankle pain s/p mechanical trip and fall on steps [employer] with + head strike. On exam tachycardic, NAD, nontoxic appearing, physical exam as noted above. Concern for ICH vs fractures vs sprain. Concern for ETOH dependence. No evidence of withdrawal at this time. Rule out metabolic abnormalities. Low suspicion for DVT with negative venous duplex ultrasound at [facility] on 04/08 Plan: Labs, tox screen, x-ray, CT, recovery consult Please refer to course for remaining clinical decision making, interpretation of labs/imaging results, and discussions with consultants and/or family members. Differential Diagnosis Differential Diagnoses: The differential diagnosis associated with the presentation includes As above Admission/Observation Consideration of admission/observation: Escalation of care including admission/observation considered Consult Healthcare Provider Management of the patient was discussed with: Behavioral Health Provider Lab Data MDM Lab Attestation statement: I reviewed the patient's lab results. 04/09/25 15:11 04/09/25 15:11 Labs: Lab Results 04/09/25 04/10/25 Range/Units 15:11 05:50 WBC 4.7 L (4.8-10.8) X10*3/uL RBC 3.76 L (4.60-5.80) X10*6/uL Hgb 11.6 L (14.0-18.0) g/dl Hct 34.5 L (42.0-52.0) % MCV 91.8 (80.0-98.0) fL MCH 30.9 (27.0-33.0) pg MCHC 33.6 (31.0-36.0) g/dl RDW 14.7 (11.0-16.0) % Plt Count 108 L (160-400) X10*3/uL MPV 10.3 (9.4-12.4) fL Immature Gran % (Auto) 0.2 (0.0-0.4) % Neut % (Auto) 57.9 (45-73) % Lymph % (Auto) 24.6 (20-40) % [place] % (Auto) 15.4 H (2-11) % Eos % (Auto) 1.5 (0-4) % Baso % (Auto) 0.4 (0-2) % Lymph # (Auto) 1.2 (1.2-4.9) X10*3/uL [place] # (Auto) 0.7 (0.1-1.2) X10*3/uL Eos # (Auto) 0.1 (0.0-0.4) X10*3/uL Baso # (Auto) 0.0 (0.0-0.2) X10*3/uL Abs Immat Gran (auto) 0.01 (0.00-0.03) X10*3/uL Absolute Neuts (auto) 2.7 (2.0-8.3) x10*3/uL Absolute Nucleated RBC 0.000 (0.0-0.012) X10*3/uL Nucleated RBC % (auto) 0.0 (0.0-0.2) /100WBC Sodium 142 (135-145) mmol/L Potassium 3.7 (3.3-5.1) mmol/L Chloride 110 H (96-108) mmol/L Carbon Dioxide 24 (22-29) mmol/L Anion Gap 12 (12-20) BUN 11 (9-16) mg/dL Creatinine 0.63 (0.5-1.4) mg/dL Estim Creat Clear Calc 152.6 Estimated GFR > 60 Random Glucose 99 (60-115) mg/dL Calcium 8.4 D (8.4-10.2) mg/dL Urine Opiates Screen Not Detected (Not Detect) Ur Buprenorphine Scrn Not Detected (Not Detect) ng/mL Ur Oxycodone Screen Not Detected (Not Detect) ng/mL Urine Methadone Screen Not Detected (Not Detect) ng/mL Urine Fentanyl Screen Not Detected (Not Detect) Ur Barbiturates Screen POSITIVE H (Not Detect) Ur Phencyclidine Scrn Not Detected (Not Detect) Ur Amphetamines Screen Not Detected (Not Detect) U Benzodiazepines Scrn POSITIVE H (Not Detect) Urine Cocaine Screen POSITIVE H (Not Detect) U Marijuana (THC) Screen Not Detected (Not Detect) Ethyl Alcohol < 10 mg/dL Independent Interpretation I performed an independent interpretation of an: Plain X-Ray and CT Scan Radiology Impression Discussion of test interpretation with radiology: I have reviewed the radiologist's reading. External Record Review External record reviewed: Inpatient record, Office record, Outpatient record, Prior outpatient labs, Prior outpatient radiology, Primary care record and Outside ED record Tests considered The following testing was considered but not selected: As above Prescription Management I considered prescription management with: Pain Medication and Other Chronic Conditions Patient?s care impacted by: Other (ETOH dependence) Social Determinants Patient?s care significantly limited by Social Determinants of Health including: Alcoholism and drug addiction in family and Other Social Determinant of Health Discharge Plan Discharge Clinical Impression: Head injury, EtOH dependence Patient Disposition: Home, Self-Care Instructions: Abuse of Alcohol (ED) Additional Instructions: You will be discharged to [facility] [place] where they will help facilitate getting him into detox. Unfortunately there are no beds available tonight Prescriptions: No Action amlodipine 5 mg tablet 5 mg PO DAILY baclofen 10 mg tablet 10 mg PO TID gabapentin 300 mg capsule 300 mg PO DAILY folic acid 1 mg tablet 1 mg PO DAILY furosemide 20 mg tablet 10 mg PO DAILY acamprosate 333 mg tablet,delayed release (DR/EC) 666 mg PO TID calcium carbonate-vitamin D3 500 mg-10 mcg (400 unit) tablet 1 tab PO DAILY sennosides [senna] 8.6 mg tablet 17.2 mg PO DAILY paroxetine HCl 10 mg tablet 10 mg PO DAILY nicotine (polacrilex) 2 mg gum 2 mg PO PRN (Reason: Withdrawal Symptoms) thiamine HCl (vitamin B1) 100 mg tablet 100 mg PO DAILY melatonin 3 mg tablet 3 mg PO BEDTIME spironolactone 25 mg tablet 25 mg PO DAILY magnesium oxide 400 mg (241.3 mg magnesium) tablet 400 mg PO DAILY pantoprazole 40 mg tablet,delayed release (DR/EC) 40 mg PO DAILY@0630 pyridoxine (vitamin B6) 50 mg tablet 50 mg PO DAILY Santyl 250 unit/gram ointment 1 appl topical DAILY Xifaxan 550 mg tablet 550 mg PO BID multivitamin with folic acid [Tab-A-Jesse] 400 mcg tablet 1 tab PO DAILY trazodone 50 mg tablet 50 mg PO BEDTIME PRN (Reason: insomnia) hydroxyzine pamoate 50 mg capsule 50 mg PO TID PRN (Reason: Anxiety/Itching) mirtazapine 15 mg tablet 15 mg PO BEDTIME duloxetine 30 mg capsule,delayed release(DR/EC) 60 mg PO DAILY lactulose 10 gram/15 mL solution 30 ml PO BID Print Language: Kenyan
[2025-04-09 15:15] LABS: MANUAL DIFF FLAG NO
[2025-04-09 15:17] LABS: Hematocrit 34.5 % (42.0-52.0); Hemoglobin 11.6 g/dl (14.0-18.0); Imm Gran Abs Auto 0.01 X10*3/uL (0.00-0.03); Imm Gran Pct Auto 0.2 % (0.0-0.4); Lymphocytes Absolute Auto 1.2 X10*3/uL (1.2-4.9); Mean Corpuscular HGB Conc 33.6 g/dl (31.0-36.0); Mean Corpuscular Hemoglobin 30.9 pg (27.0-33.0); Mean Corpuscular Volume 91.8 fL (80.0-98.0); NRBC Abs Auto 0.000 X10*3/uL (0.0-0.012); NRBC Pct Auto 0.0 /100WBC (0.0-0.2); Platelet Count 108 X10*3/uL (160-400); Red Blood Count 3.76 X10*6/uL (4.60-5.80); White Blood Count 4.7 X10*3/uL (4.8-10.8)
[2025-04-09 15:28] LABS: Anion Gap 12 (12-20); Blood Urea Nitrogen 11 mg/dL (9-16); Calcium 8.4 mg/dL (8.4-10.2); Carbon Dioxide 24 mmol/L (22-29); Chloride 110 mmol/L (96-108); Creatinine Clr Calc Pharmacy 152.6; Estimated Glomerular Filt Rate > 60; Potassium 3.7 mmol/L (3.3-5.1); Sodium 142 mmol/L (135-145)
--- NOTE | 2025-04-09 15:30 | PC.NURSE ---
Pt changed into hospital attire. Clothes bagged and on back of stretcher.
[2025-04-09 16:00] VITALS: BP 141/74; PULSE 96; RESP 16; TEMP 37.1; O2SAT 97
--- OUTSIDE RECORDS SUMMARY | 2025-04-09 18:08 | XMS_ITS | Clinical Summary ---
Author Organization [facility] Address [address] [place] [address] Phone Care Team Providers Care Software Design Manager Name Role Phone Jany Baig Primary Care [...] mmol/L LAB CHEMISTRY METHOD 09/01/2024 5:[address] [facility] Potassium 4.8 3.5 - 5.5 mmol/L LAB CHEMISTRY METHOD 09/01/2024 5:[address] [facility] Chloride 112(H) 96 - 110 mmol/L LAB CHEMISTRY METHOD 09/01/2024 5:[address] [facility] CO2 23 21 - 32 mmol/L LAB CHEMISTRY METHOD 09/01/2024 5:[address] [facility] Anion Gap 6 3 - 11 LAB CHEMISTRY METHOD 09/01/2024 5:[address] [facility] Glucose 111(H) 70 - 100 mg/dL LAB CHEMISTRY METHOD 09/01/2024 5:[address] [facility] BUN 8 5 - 25 mg/dL LAB CHEMISTRY METHOD 09/01/2024 5:[address] [facility] Creatinine 0.68(L) 0.70 - 1.30 mg/dL LAB CHEMISTRY METHOD 09/01/2024 5:[address] [facility] eGFR 113 >=60 mL/min/1. 73m2 LAB CHEMISTRY METHOD 09/01/2024 5:[address] [facility] Comment:Calculation based on the Chronic Kidney Disease Epidemiology Collaboration (CKD-EPI) equation refit without adjustment for race. BUN/Creatinine Ratio 11.8 LAB CHEMISTRY METHOD 09/01/2024 5:[address] [facility] Calcium 8.8 8.5 - 10.5 mg/dL LAB CHEMISTRY METHOD 09/01/2024 5:[address] [facility] AST (SGOT) 59(H) 10 - 42 unit/L LAB CHEMISTRY METHOD 09/01/2024 5:[address] [facility] ALT (SGPT) 48 10 - 60 unit/L LAB CHEMISTRY METHOD 09/01/2024 5:36 PM EDT [facility] Alkaline Phosphatase 212(H) 42 - 121 unit/L LAB CHEMISTRY METHOD 09/01/2024 5:36 PM EDT [facility] Total Protein 6.4 6.0 - 8.0 g/dL LAB CHEMISTRY METHOD 09/01/2024 5:36 PM EDT [facility] Albumin 2.7(L) 3.2 - 5.0 g/dL LAB CHEMISTRY METHOD 09/01/2024 5:36 PM EDT [facility] Total Bilirubin 1.2 0.0 - 1.4 mg/dL LAB CHEMISTRY METHOD 09/01/2024 5:36 PM EDT [facility] Blood Venous blood specimen / Unknown Venipuncture / Unknown 09/01/2024 4:23 PM EDT 09/01/2024 4:48 PM EDT [facility] LAB BLOOD ORDERABLES Final Resu lt [facility] [address] [place] [address], from Last 3 Months or Most Recently Relevant to Health Maintenance Insurance [facility] MEDICAID [place] [id number] Advance Directives * Full Code - Confirmed (Latest Code Status on File) Date Activated Date Inactivated Comments 06/28/2024 9:16 AM 06/30/2024 7:[address] [facility] was ascertained in the following way: Code status discussion: discussion with patient To update the patient's code status, place a code status order. Do not modify or discontinue any currently active code status orders. Care Teams Software Design Manager Relationship Specialty Start Date End Date Jany Baig DO [address] [place] [address] PCP - General Pediatrics 04/17/24
--- OUTSIDE RECORDS SUMMARY | 2025-04-09 18:08 | XMS_ITS | Clinical Summary ---
Author Organization [facility] Address [address] [place] [address] Care Team Providers Care Flash Developer Name Role Phone Unavailable Primary Care Provider [...] age to complete [place] [id number] [facility] FFS [employer] Care Teams Flash Developer Relationship Specialty Start Date End Date Jany Baig Primary Care Provider 07/05/24
[2025-04-09 18:09] VITALS: BP 135/64; PULSE 90; RESP 18; TEMP 37.1; O2SAT 98
[2025-04-09 21:46] VITALS: BP 123/59; PULSE 87; TEMP 36.7; O2SAT 97
[2025-04-10 06:18] LABS: Cannabinoid Screen Urine Not Detected (Not Detect)
[2025-04-10 08:04] VITALS: RESP 20
[2025-04-10 10:40] VITALS: BP 132/77; PULSE 100; RESP 20; TEMP -17.7; TEMP 0; O2SAT 97
== END 2025-04-10 10:43 | disposition home or self-care (01) ==
PROVIDERS: Emergency Medicine; Emergency Provider Emergency Medicine; PCP Pediatrics
DX: F10.20 Alcohol dependence, uncomplicated (principal); S09.90XA Unspecified injury of head, initial encounter; S99.912A Unspecified injury of left ankle, initial encounter; R51.9 Headache, unspecified; M54.2 Cervicalgia; M25.572 Pain in left ankle and joints of left foot; F14.90 Cocaine use, unspecified, uncomplicated; Y90.0 Blood alcohol level of less than 20 mg/100 ml; I10 Essential (primary) hypertension; W10.9XXA Fall (on) (from) unspecified stairs and steps, initial encounter; Y93.9 Activity, unspecified; Y92.9 Unspecified place or not applicable; Y99.8 Other external cause status; Z51.81 Encounter for therapeutic drug level monitoring; Z79.899 Other long term (current) drug therapy
CPT/HCPCS: 36415; 70450; 72125; 73610; 80048; 80307; 85025; 99284; S9485

== ENCOUNTER → 2025-04-09 12:58 | Outpatient (BNV) | payer OTHER, SELFPAY | PROVIDERS: Visit Provider Radiology Diagnostic Radiology | DX: M50.322 Other cervical disc degeneration at C5-C6 level (principal); M50.323 Other cervical disc degeneration at C6-C7 level; Z04.3 Encounter for examination and observation following other accident; S82.52XA Displaced fracture of medial malleolus of left tibia, initial encounter for closed fracture; S92.012A Displaced fracture of body of left calcaneus, initial encounter for closed fracture; W18.40XA Slipping, tripping and stumbling without falling, unspecified, initial encounter | CPT/HCPCS: 70450; 72125; 73610 ==